=== PATIENT | female | born 1950 | race Caucasian/White ===

== ENCOUNTER 2023-07-24 13:15 | Outpatient (OUT) | payer MEDICARE, SELFPAY ==
--- NOTE | 2023-07-24 13:31 | MR_ITS ---
The [address] [address] Patient Name: LUPE NGUYEN MRN: [id number] date: 1950 Sex: F Assigned Patient Location: LAB Current Patient Location: LAB Accession/Order Number: [id number] Exam Date: 07/24/2023 13:45 Report Date: 07/25/2023 15:55 At the request of: ALFREDO CARDENAS Procedure: MR abdomen wo/w con EXAM: MR abdomen wo/w con 07/24/2023 COMPARISON STUDY: MRI of the abdomen with and without contrast 08/29/2022. CT of the abdomen and pelvis without contrast 03/24/2021. TECHNIQUE: Coronal T1 and T2, sagittal T2, axial T2, axial T1 in and out of phase, and axial as well as coronal T1 images were obtained following administration of intravenous gadolinium contrast. HISTORY: Kidney Lesion N28.9 FINDINGS: A hemorrhagic/proteinaceous exophytic cyst at the upper pole of the right kidney involves the anterolateral cortex. On image #6 of series 13 this measures 5 x 10 mm. An intracortical similar appearing lesion involving the anterior and medial cortex upper pole left kidney, image #8 of series 13 measures 9 x 10 mm. A small exophytic cyst involving the posterior cortex of the left kidney near the inferior pole measures 7 mm superior to inferior, image 11 of series 8. An intracortical cyst involving the posterior cortex upper pole right kidney measures 6 mm. Intracortical angiomyolipoma within the posterior cortex at the midpole level of the right kidney, image #9 of series 9 measures 6 mm. A midpole similar appearing lesion on the left within the posterior cortex measures 7 mm, image 11 of series 9. Bowel pattern is nonobstructive. Aorta is nonaneurysmal. No new significantly enlarged adenopathy. Right hepatic lobe measures 16 cm superior to inferior. The spleen measures 8.9 cm superior to inferior. There is a focal area of capsular retraction of the upper pole of the spleen again identified. This is seen on coronal image #17 of series 5. This is associated with subcapsular areas of decreased T1 and T2 signal intensity. There is dextrocurvature of the spine centered at the thoracolumbar junction. Chronic inferior endplate Schmorl's node formation versus compression deformity at the L1 level is noted. Spondylitic/facet arthritic changes lumbar spine are again identified as well as evidence of posterior dory and screw fixation from L4 through S1 levels. Visualized portions of the liver, pancreas, and adrenals appear unremarkable. MR/MR abdomen wo/w con IMPRESSION: 1. Prior cholecystectomy. 2. 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 3. Mild background global atrophic changes of both kidneys without hydronephrosis. 4. Combination of simple and hemorrhagic/proteinaceous cysts involving each kidney again noted and unchanged. Subcentimeter angiomyolipomas at the midpole levels of each kidney also again noted. 5. Posterior dory and screw fixation from L4 through S1 levels noted. Lumbar scoliosis with severe spondylitic/facet arthritic change is again identified. Chronic inferior endplate compression deformity versus Schmorl's node formation at the L1 level again identified. Electronically authenticated by: TAWANNA WATKINS Date: 07/25/2023 15:55
[2023-07-24 13:37] LABS: Estimated GFR (African America 41 (>=60); Estimated GFR (Non-African Ame 34 (>=60)
== END 2023-07-24 13:16 | disposition home or self-care (01) ==
LOC: LAB 13:15
PROVIDERS: PCP Internal Medicine; Visit Provider Urology
DX: N28.9 Disorder of kidney and ureter, unspecified (principal); N28.1 Cyst of kidney, acquired
CPT/HCPCS: 36415; 74183; 82565; A9575

== ENCOUNTER 2023-08-17 10:03 | Outpatient (OUT) | payer MEDICARE, SELFPAY ==
--- NOTE | 2023-08-17 11:02 | US_ITS ---
[place] [id number] Patient Name: LUPE NGUYEN MRN: [id number] date: 1950 Sex: F Assigned Patient Location: CARD Current Patient Location: CARD Accession/Order Number: [id number] Exam Date: 08/17/2023 11:10 Report Date: 08/19/2023 04:55 At the request of: SACHIN MATTHEWS Procedure: US renal doppler EXAMINATION: US renal doppler HISTORY: Atherosclerosis Of Renal Arteries COMPARISON: Ultrasound kidneys 02/22/2022 TECHNIQUE: Ultrasound examination was performed of the kidneys and bladder. FINDINGS: Right Kidney: Height: 4.0 cm Length: 7.3 cm Width: 4.4 cm Right Renal Artery Proximal: 103.6 cm/s / 18.0 cm/s Mid: 62.9 cm/s / 12.5 cm/s Distal: 49.9 cm/s / 12.4 cm/s Right Arcuate Artery Superior: 26.6 cm/s / 8.7 cm/s Middle: 25.9 / 10.9 cm/s Inferior: 32.3 / 10.9 cm/s Left Kidney: Height: 5.3 cm Length: 11.0 cm Width: 5.1 cm Left Renal Artery Proximal PSV: 138.1 cm/s Proximal EDV: 12.6 cm/s Mid PSV: 75.1 cm/s Mid EDV: 24.6 cm/s Distal PSV: 48.1 cm/s Distal EDV: 15.0 cm/s Left Arcuate Artery Superior PSV: 55.3 cm/s Superior EDV: 18.0 cm/s Middle PSV: 48.7 cm/s Middle EDV: 20.2 cm/s Inferior PSV: 68.5 cm/s Inferior EDV: 18.0 cm/s Aorta PSV: 108 cm/s Aorta EDV: 35.6 cm/s US/US renal doppler IMPRESSION: 1. Grossly stable bilateral cortical thinning and stable simple and complex cysts. 2. No hydronephrosis or appreciable stones. 3. Borderline elevated resistive index within the renal arteries and arcuate arteries and changing waveform compatible with slightly narrowed vessels and increased resistance. Electronically authenticated by: TONYA GARCIA Date: 08/19/2023 04:55
--- NOTE | 2023-08-17 11:06 | CA_ITS ---
Patient Name: LUPE NGUYEN MR#: [id number] : 1950 Exam Date: 08/17/2023 Ordering Doctor: DR SACHIN AGUILERA M.D. ECHOCARDIOGRAM REPORT PROCEDURE: CA ECHO DOPPLER COMPLETE INDICATIONS: Hypertension, aortic insufficiency, CABGx3, heart stents, myocardial infarction COMPARISON: None. DESCRIPTION: COMPLETE ECHOCARDIOGRAM Real-time transthoracic echocardiography with 2D, M-mode, spectral and color flow Doppler performed. QUALITY: Technical quality was good. 60 , 175# , BSA 1.76 m2 LEFT VENTRICLE: Normal chamber size. Moderate concentric left ventricular hypertrophy. Normal systolic function. LV EF: Normal left ventricular ejection fraction, (55%). DIASTOLIC: Grade I diastolic dysfunction. ATRIAL SEPTUM: Possible ASD vs PFO. LEFT ATRIUM: Moderate dilatation. RIGHT ATRIUM: Moderate dilatation. RIGHT VENTRICLE: Mild dilatation. Mildly decreased right ventricular systolic function. TRICUSPID VALVE: Normal mobility and thickness. No stenosis with mild regurgitation. Doppler studies reveal mildly (35-45) elevated right sided pressures. RVSP 36 mmHg MITRAL VALVE: Moderately thickened with normal mobility. No evidence of mitral valve stenosis. There is no mitral annular calcification. Mild mitral regurgitation. AORTIC VALVE: Normal trileaflet appearance. Mildly calcified aortic valve. Normal leaflet mobility. No evidence of aortic valve stenosis. Mild to moderate aortic regurgitation. AORTIC ROOT: Normal diameter and appearance. PULMONIC VALVE: Normal thickness and mobility. No stenosis. Trivial regurgitation. PERICARDIUM: Trivial pericardial effusion. IVC: Collapses with inspirations. PLEURA: CONCLUSION: 1. Moderate concentric left ventricular hypertrophy with normal left ventricular systolic function. Estimated LVEF is 55%. 2. The right ventricle is mildly dilated with mildly reduced systolic function. 3. Mild diastolic dysfunction. 4. Moderate biatrial dilatation. 5. Mild to moderate aortic regurgitation. 6. Mild mitral and tricuspid regurgitation. 7. Mildly elevated right-sided pressures. 8. Color-flow Doppler indicates interatrial septal communication with vexh-ye-panak shunting suggestive of possible small atrial septal defect. Adult Echocardiography Procedure Report Left Ventricle LVEDD (3.7 - 5.6 cm): 4.46 cm LVESD (2.2 - 4.0 cm): 2.92 cm LVIVS thickness (0.6 - 1.2 cm): 1.45 cm LVPW thickness (0.5 - 1.0 cm): 1.25 cm e': 0.06 m/s E - e': 12.91 LVOT Max Gradient: 2.15 mm[Hg] LVOT Area (cm2): 0.73 m/s Peak Velocity (LVOT): 0.73 m/s Mean Velocity (LVOT): 0.50 m/s LVOT Diameter 2.40 cm Left Atrium LA Volume Index (2D A2C): 53.65 ml/m2 Left Atrium Systolic Dimension: 4.90 cm Mitral Valve MV E to A Ratio: 0.72 Mitral Valve A-Wave Peak Velocity: 1.09 m/s Mitral Valve E-Wave Peak Velocity: 0.79 m/s Right Ventricle Aorta AO Root Diam: 2.91 cm Ascending Ao Diam: 2.75 cm Aortic Valve AoV Area (Peak Aakash): 2.42 cm2, 2.42 cm2 AoV Area (VTI): 2.65 cm2, 2.65 cm2 Peak Velocity(Antegrade Flow): 1.37 m/s Peak Gradient(Antegrade Flow): 7.46 mm[Hg] Mean Velocity(Antegrade Flow): 0.86 m/s Mean Gradient(Antegrade Flow): 3.49 mm[Hg] Velocity Time Integral: 33.44 cm Tricuspid Valve Peak Velocity (Regurgitant Flow): 2.60 m/s, 2.90 m/s, 2.63 m/s Pulmonic Valve Mean Gradient: 1.50 mm[Hg] Mean Velocity: 0.59 m/s Peak Velocity: 0.74 m/s, 0.80 m/s Peak Gradient: 2.20 mm[Hg], 2.55 mm[Hg] Right Atrium Right Atrium Systolic Pressure: 49.15 ml, 49.15 ml Dictated by: Sachin Aguilera M.D. on 08/18/2023 at 19:42 Approved by: Sachin Aguilera M.D. on 08/18/2023 at 19:51
== END 2023-08-17 10:04 | disposition home or self-care (01) ==
LOC: CARD 10:08
PROVIDERS: PCP Internal Medicine; Visit Provider Internal Medicine Interventional Cardiology
DX: I70.1 Atherosclerosis of renal artery (principal); I10 Essential (primary) hypertension; I35.1 Nonrheumatic aortic (valve) insufficiency
CPT/HCPCS: 76775; 93306; 93975

== ENCOUNTER 2023-09-18 20:08 | Inpatient (IN) | payer MEDICARE, SELFPAY ==
[2023-09-18 20:17] VITALS: BP 193/69; PULSE 92; RESP 18; TEMP 37.4; O2SAT 95; BMI 35.0
--- OUTSIDE RECORDS SUMMARY | 2023-09-18 20:21 | XMS_ITS | CCD ---
Author Name Unknown Address [address] [place] [address] Organization [facility] Care Team Providers Care Celebrity Manager Name Role Phone DESIRAE, SHAKA H. Unavailable Unavailable JACK VOGT Unavailable Unavailable DESIRAE, SHAKA H. Unavailable Unavailable DESIRAE, SHAKA H. Unavailable Unavailable JACK VOGT Unavailable Unavailable DESIRAE, SHAKA H. Unavailable Unavailable DESIRAE, SHAKA H. Unavailable Unavailable JACK VOGT Unavailable Unavailable THOMAS Vogt Primary Care Provider THOMAS Vogt Referring Provider Self, Referral Attending Provider Unavailable JACK VOGT Primary Care Physician JOHN EPPERSON Attending Unavailable JOHN EPPERSON Admitting Unavailable JOHN EPPERSON Consulting Unavailable DR JACK VOGT Primary Care Unavailable JOHN EPPERSON Attending Unavailable JOHN EPPERSON Admitting Unavailable DR JACK VOGT Primary Care Unavailable DR HENRY PARKER V Consulting Unavailable JOHN EPPERSON Consulting Unavailable JOHN EPPERSON Attending Unavailable JOHN EPPERSON Admitting Unavailable JOHN EPPERSON Consulting Unavailable DR JACK VOGT Primary Care Unavailable JOHN EPPERSON Attending Unavailable JOHN EPPERSON Admitting Unavailable JOHN EPPERSON Consulting Unavailable DR JACK VOGT Primary Care Unavailable SARAY MONCADA Attending Unavailable SARAY MONCADA Admitting Unavailable DR JACK VOGT Primary Care Unavailable DR TONYA GARCIA Consulting Unavailable SARAY MONCADA Consulting Unavailable ALFREDO COELHO Consulting Unavailable DR JACK VOGT Primary Care Unavailable ALFREDO COELHO Attending Unavailable ALFREDO COELHO Admitting Unavailable RYLAN HOPKINS Consulting Unavailable ISABEL DODGE Attending Unavailable KRISHAN DODGEISSA Admitting Unavailable DR JACK VOGT Primary Care Unavailable ZIEBER, DR TONYA Moya Consulting Unavailable DAR, ISABEL Consulting Unavailable COELHO, ALFREDO Consulting Unavailable VOGT, DR DOSS Primary Care Unavailable COELHO, ALFREDO Attending Unavailable COELHO, ALFREDO Admitting Unavailable WEST, DR HENRY Mosley Consulting Unavailable DAR, ISABEL Attending Unavailable DAR, ISABEL Admitting Unavailable DAR, ISABEL Consulting Unavailable FRANCHESCA, DR DOSS Primary Care Unavailable ZHOU, JOHN Attending Unavailable ZHOU, JOHN Admitting Unavailable VOGT, DR DOSS Primary Care Unavailable ZIEBJESSICA, DR TONYA Moya Consulting Unavailable ZHOU, JOHN Consulting Unavailable NEFCY, JERRICA Consulting Unavailable Self, Referral Attending Unavailable Self, Referral Admitting Unavailable Jack Vogt Referring Unavailable Jack Vogt Primary Care Unavailable DAR, ISABEL Attending Unavailable MOUKARBELSACHIN Attending Unavailable COELHO, Alfredo R Attending Unavailable COELHO, Alfredo R Attending Unavailable COELHO, Alfredo R Attending Unavailable Allergies Allergy Classification Reported Allergen(s) Allergy Type Date of Onset Reaction(s) Facility (7 sources) Iodine; Translations: [Iodine] Drug Allergy 0 Eruption of skin (disorder) [facility] (2 sources) Pneumococcal vaccine; Translations: [pneumococcal vaccine] Drug Allergy 1 Edema [facility] (3 sources) varenicline; Translations: [varenicline] Drug Allergy 1 Vomiting [facility] (2 sources) Oktbmko-ENE-FyW Reductase Inhibitor; Translations: [Ivfdrqv-KIH-RtL Reductase Inhibitor] Allergy to substance 1 Unknown Reaction [facility] (3 sources) HMG-CoA reductase inhibitor; Translations: [statins] Drug allergy Unknown (qualifier value) [facility] (3 sources) Shellfish; Translations: [shellfish] Drug allergy Unknown (qualifier value) [facility] (2 sources) black walnut pollen extract; Translations: [HJCJHOA-WXH-KAL REDUCTASE INHIBITORS] Drug Allergy 0 [facility] (1 source) varenicline Drug Allergy 0 [facility] (1 source) Pneumovax 23 Drug allergy (disorder) 0 [facility] (1 source) Contrast media; Translations: [RED DYE] Propensity to adverse reactions to drug (disorder) 2 [facility] (1 source) nickel; Translations: [NICKEL] Drug Allergy 8 [facility] (1 source) Pneumococcal vaccine; Translations: [PNEUMOCOCCAL 23-CRUZ PS VACCINE] Drug Allergy 1 [facility] (1 source) Shellfish; Translations: [SHELLFISH DERIVED] Propensity to adverse reactions to drug (disorder) 8 [facility] Medications Current Medications Medication Drug Class(es) Dates Sig (Normalized) Sig (Original) acetaminophen 325 mg / HYDROcodone bitartrate 5 mg oral tablet (2 sources) Opioid Agonist Start: 09-26-2022 acetaminophen-hydr ocodone 325 mg-5 mg oral tablet Refill(s) 0 Start Date: 09/26/22 Status: Ordered Start: 03-24-2021 End: 03-27-2021 take 1 tablet by mouth every six hours Hydrocodone-Acetaminophen Discontinued 1 TAB PO Q6H March 24, 2021 10:33pm March 27, 2021 11:36am alendronic acid 70 mg oral tablet (1 source) Bisphosphonate Start: 09-26-2022 alendronate 70 mg Tab Refills(s) 0 Start Date: 09/26/22 Status: Ordered apixaban 2.5 mg oral tablet (3 sources) Factor Xa Inhibitor Start: 03-04-2022 Eliquis 2. 5 mg oral tablet Refills(s) 0 Start Date: 03/04/22 Status: Ordered Start: 03-24-2021 take 1 tablet by gloria th twice daily Apixaban (Eliquis) 5 mg tablet Active 5 MG PO Twice daily March 24, 2021 10:33pm aspirin 81 mg delayed release oral tablet (3 sources) Platelet Aggregation Inhibitor, Nonsteroidal Anti-inflammatory Drug Start: 03-04-2022 take 1 mg by mouth once daily aspirin 81 mg Oral EC Tab mg tab(s), Oral, Daily, Refills(s) 0 Start Date: 03/04/22 Status: Ordered Start: 03-24-2021 take 81 mg by mouth once daily Aspirin Active 81 MG PO Daily March 24, 2021 10:38pm DULoxetine 30 mg delayed release oral capsule (3 sources) Serotonin and Norepinephrine Reuptake Inhibitor Start: 03-04-2022 DULoxetine 30 mg Cap-EC Refills(s) 0 Start Date: 03/04/22 Status: Ordered Start: 03-04-2022 DULoxetine 60 mg Cap-EC Refills(s) 0 Start Date: 03/04/22 Status: Ordered Start: 03-24-2021 take 90 mg by mouth at bedtime Duloxetine Active 90 MG PO Bedtime March 24, 2021 10:33pm DULoxetine 30 mg Cap-EC (1 source) Start: 03-04-2022 DULoxetine 30 mg Cap-EC Refills(s) 0 Start Date: 03/04/22 Status: Ordered DULoxetine 60 mg Cap-EC (1 source) Start: 03-04-2022 DULoxetine 60 mg Cap-EC Refills(s) 0 Start Date: 03/04/22 Status: Ordered ezetimibe 10 mg oral tablet (3 sources) Dietary Cholesterol Absorption Inhibitor Start: 03-04-2022 ezetimibe 10 mg Tab Refills(s) 0 Start Date: 03/04/22 Status: Ordered Start: 03-24-2021 take 10 mg by mouth once daily Ezetimibe Active 10 MG PO Daily March 24, 2021 10:33pm fenofibrate 145 mg oral tablet (1 source) Peroxisome Proliferator Receptor alpha Agonist Start: 03-24-2021 take 145 mg by mouth once daily Fenofibrate Nanocrystallized Active 145 MG PO Daily March 24, 2021 10:38pm furosemide 40 mg oral tablet (3 sources) Loop Diuretic Start: 03-04-2022 furosemide 40 mg Tab Refills(s) 0 Start Date: 03/04/22 Status: Ordered Start: 03-24-2021 take 40 mg by mouth once daily Furosemide Active 40 MG PO Daily March 24, 2021 10:33pm 12 hr guaiFENesin 600 mg extended release oral tablet (1 source) Start: 03-27-2021 take 2 tablets by mouth twice daily, then take 1 tablet by mouth every twelve hours Guaifenesin (Mucinex) 600 mg Tablet Extended Release 12hr Active 1200 MG PO Twice daily 0 March 27, 2021 11:32am hydrALAZINE hydrochloride 25 mg oral tablet (2 sources) Arteriolar Vasodilator Start: 03-04-2022 hydrALAZINE 25 mg Tab Refills(s) 0 Start Date: 03/04/22 Status: Ordered 24 hr isosorbide mononitrate 60 mg extended release oral tablet (5 sources) Nitrate Vasodilator Start: 03-04-2022 isosorbide mononitrate 60 mg ER Tab Refills(s) 0 Start Date: 03/04/22 Status: Ordered Start: 03-24-2021 take 60 mg by mouth once daily Isosorbide Mononitrate Active 60 MG PO Daily March 24, 2021 10:33pm Metoprolol (3 sources) beta-Adrenergic Genoveva Start: 03-04-2022 Metopr olol tartrate 50 mg Tab Refills(s) 0 Start Date: 03/04/22 Status: Ordered Start: 03-24-2021 take 50 mg by mouth twice piedad y Metoprolol Tartrate Active 50 MG PO Twice daily March 24, 2021 10:33pm 24 hr NIFEdipine 90 mg extended release oral tablet (3 sources) Dihydropyridine Calcium Channel Genoveva Start: 03-04-2022 NIFEdipine (Eqv-Procardia XL) 90 mg oral tablet, extended release Refills(s) 0 Start Date: 03/04/22 Status: Ordered Start: 03-24-2021 take 90 mg by mouth once daily Nifedipine Active 90 MG PO Daily March 24, 2021 10:33pm nitroglycerin 0.4 mg/actuat mucosal spray (2 sources) Nitrate Vasodilator Start: 03-04-2022 nitroglyce rin 0.4 mg SubL [place] mg spray(s), SubLingual, q5min, Refills(s) 0 Start Date: 03/04/22 Status: Ordered pantoprazole 40 mg delayed release oral tablet (3 sources) Proton Pump Inhibitor Start: 03-04-2022 Pantoprazole 40 mg D R Tab Refills(s) 0 Start Date: 03/04/22 Status: Ordered Start: 03-24-2021 take 40 mg by mouth once daily Pantoprazole Active 40 MG PO Daily March 24, 2021 10:33pm pregabalin 75 mg oral capsul e (3 sources) Start: 03-04-2022 pregabalin 75 mg Cap Refills(s) 0 Start Date: 03/04/22 Status: Ordered Start: 03-24-2021 take 75 mg by mouth twice piedad y Pregabalin Active 75 MG PO Twice daily March 24, 2021 10:33pm tiZANidine 4 mg oral tablet (2 sources) Central alpha-2 Adrenergic Agonist Start: 03-04-2022 tiZANidine 4 mg Tab Refills(s) 0 Start Date: 03/04/22 Status: Ordered valsartan 320 mg oral tablet (3 sources) Angiotensin 2 Receptor Genoveva Start: 03-04-2022 valsartan 320 mg Tab Refills(s) 0 Start Date: 03/04/22 Status: Ordered Start: 03-24-2021 take 320 mg by mouth once piedad y Valsartan Active 320 MG PO Daily March 24, 2021 10:33pm zolpidem tartrate 10 mg oral tablet (3 sources) gamma-Aminobutyric Acid-ergic Agonist Start: 03-04-2022 zolpidem 10 mg oral tablet Refills(s) 0 Start Date: 03/04/22 Status: Ordered Start: 03-24-2021 take 10 mg by mouth at bedtime Zolpidem Active 10 MG PO Bedtime March 24, 2021 10:33pm Completed/Discontinued Medications Medication Drug Class(es) Dates Sig (Normalized) Sig (Original) ondansetron 4 mg oral film (1 source) Serotonin-3 Receptor Antagonist Start: 03-24-2021 End: 03-27-2021 take 4 mg by mouth every eight hours Ondansetron Discontinued 4 MG PO Q8H March 24, 2021 10:38pm March 27, 2021 11:37am Problems Active Problems Problem Classification Problem Date Documented Da te Episodic/Chronic Acute and unspecified renal failure (1 source) Injury of kidney; Translations: [Acute kidney failure, unspecified] 03-27-2021 Episodic Acute myocardial infarction (2 sources) Myocardial infarction 06-28-2021 Chronic Chronic kidney disease (2 sources) Chronic kidney disease, stage 4 (severe); Translations: [Chronic kidney disease, stage 4 (severe)] Onset: 3 Chronic Complication of device; implant or graft (3 sources) Atherosclerosis of coronary artery bypass graft(s) without angina pectoris; Translations: [ATS CA BP GRAFT NO ANGINA PECTORIS] Onset: 2 Chronic Coronary atherosclerosis and other heart disease (7 sources) 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; Translations: [ASHD [place] CA W/O ANGINA PECTORIS] Onset: 2 Chronic Coronary atherosclerosis and other heart disease (4 sources) Presence of aortocoronary bypass graft; Translations: [Presence of coronary angioplasty implant and graft] Onset: 3 Episodic Deficiency and other anemia (1 source) Anemia; Translations: [Anemia, unspecified] 03-24-2021 Episodic Disorders of lipid metabolism (5 sources) Hyperlipidemia; Translations: [Mixed hyperlipidemia] Onset: 2 06-28-2021 Chronic Essential hypertension (9 sources) Hypertensive disorder; Translations: [Essential (primary) hypertension] Onset: 2 06-28-2021 Chronic Gastrointestinal hemorrhage (1 source) Lower gastrointestinal hemorrhage; Translations: [Gastrointestinal hemorrhage, unspecified] 03-24-2021 Episodic Heart valve disorders (3 sources) Nonrheumatic aortic (valve) insufficiency; Translations: [NONRHEUMATIC AORTIC INSUFFICIENCY] Onset: 2 Chronic Menopausal disorders (4 sources) Other primary ovarian failure; Translations: [OTHER PRIMARY OVARIAN FAILURE] Onset: 2 Chronic Occlusion or stenosis of precerebral arteries (3 sources) Occlusion and stenosis of bilateral carotid arteries; Translations: [OCCLUSION AND STENOS TEJ CAROTID ART] Onset: 3 Chronic Osteoporosis (2 sources) Osteoporosis; Translations: [Age-related osteoporosis without current pathological fracture] Onset: 2 09-26-2022 Chronic Other acquired deformities (2 sources) Spondylolisthesis, lumbar region; Translations: [Spondylolisthesis, lumbar region] Onset: 8 Episodic Other acquired deformities (1 source) Spondylolisthesis, lumbosacral region; Translations: [Spondylolisthesis, lumbosacral region] Onset: 8 Episodic Other aftercare (1 source) Long-term current use of anticoagulant; Translations: [half-way (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] Onset: 3 Episodic Other and ill-defined heart disease (2 sources) Heart disease 06-28-2021 Chronic Other diseases of kidney and ureters (2 sources) Disorder of kidney and/or ureter; Translations: [Disorder of kidney and ureter, unspecified] Onset: 2 Episodic Other diseases of kidney and ureters (2 sources) Kidney lesion 06-28-2021 Episodic Peripheral and visceral atherosclerosis (2 sources) Atherosclerosis of renal artery; Translations: [Atherosclerosis of renal artery] Onset: 3 Chronic Phlebitis; thrombophlebitis and thromboembolism (2 sources) Personal history of other venous thrombosis and embolism; Translations: [Personal history of other venous thrombosis and embolism] Onset: 3 Episodic Spondylosis; intervertebral disc disorders; other back problems (2 sources) Spondylosis; intervertebral disc disorders; other back problems; Translations: [L5-S1 RADICULOPATHY, SPONDYLOSIS] Onset: 8 Unclassified (1 source) 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 09-26-2022 Unclassified (1 source) Encounter for screening mammogram for malignant neoplasm of breast; Translations: [Encounter for screening mammogram for malignant neoplasm of breast] Onset: 3 Past or Other Problems Problem Classification Problem Date Documented Da te Episodic/Chronic Other aftercare (1 source) half-way (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; Translations: [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 DAMAGE CLERK 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 USE ANTICOAGULANTS] Onset: 02-10-2022 Episodic Other connective tissue disease (3 sources) Pain in leg, unspecified; Translations: [PAIN IN LEG UNSPECIFIED] Onset: 02-16-2022 Episodic Other connective tissue disease (1 source) Pain in left leg; Translations: [PAIN IN LEFT LEG] Onset: 02-25-2022 Episodic Other connective tissue disease (1 source) Pain in right leg; Translations: [PAIN IN RIGHT LEG] Onset: 02-25-2022 Episodic Other diseases of kidney and ureters (4 sources) Disorder of kidney and ureter, unspecified; Translations: [DISORDER KIDNEY AND URETER UNS] Onset: 08-29-2022 Episodic Other lower respiratory disease (5 sources) Shortness of breath; Translations: [SHORTNESS OF BREATH] Onset: 01-31-2022 Episodic Pulmonary heart disease (1 source) Personal history of pulmonary embolism; Translations: [PERSONAL HISTORY PULMONARY EMBOLISM] Onset: 02-10-2022 Episodic Residual codes; unclassified (1 source) Localized edema; Translations: [LOCALIZED EDEMA] Onset: 02-03-2022 Episodic Results Test Name Value Interpretation Reference Range Facility [facility] 07-28-2023 Lab Reports [id number] Normal [facility] RAD - MRI Reporton RAD - MRI Report [id number] Normal [facility] Reminderson 07-25-2023 Reminders - From: Pati Akins To: EU - Recalls Coelho; Sent: 09/26/2022 13:52:32 EST Show up: 05/29/2023 13:52:00 EDT Subject: Ct scan with Due Date/Time: 07/03/2023 13:52:00 EDT Reminder/Recall Pt needs scheduled for Ct scan with contrast, BUN/creatinine prior to 07/24/23 appt. PT uses [facility] From: Tsering Dean MA (EU - Recalls Coelho) To: EU - Recalls Coelho; Sent: 06/27/2023 11:43:21 EDT Show up: 07/04/2023 11:42:00 EDT Subject: RE: Ct scan with Due Date/Time: 07/11/2023 11:43:[address] order, last encounter & demographics faxed to [facility]. Will call and check on status in 1wk. Pt has f/u to review 07/24/23 Allergic to contrast dye. MRI ordered in replacement. Follow up rescheduled to September. Normal [facility] Office Visiton 07-21-2023 Follow-up visit [id number] Lauren Nguyen 1950 F Date Provider Department Center 07/21/2023 Connor-SACHIN MATTHEWS [place] [facility] Family History Problem Relation Age of Onset Coronary artery disease Mother Stroke Mother Coronary artery disease Father Ovarian cancer Sister Family Status - Relation Status Age at Mother Father Sister Level of Service:87061 MD OFFICE/OUTPATIENT ESTABLISHED MOD MDM 30-39 MIN Normal [facility] Lab Reportson 05-29-2023 Lab Reports [id number] Normal [facility] Documentationon 02-23-2023 Documentation [id number] Lauren Nguyen 1950 F Date Provider Department Center 02/23/2023 ISABEL CHAUDHRY CARD [place] . Family History Problem Relation Age of Onset Coronary artery disease Mother Stroke Mother Coronary artery disease Father Ovarian cancer Sister Family Status - Relation Status Age at Mother Father Sister Reason for Visit and Comments: pre op cardiac evaluation [Other] Normal [facility] MM screening mammo BI w/CADo n 02-03-2023 MM screening mammo BI w/CAD [facility] [place] [address] [place] [address] Mammography Report Signed Patient: Marleni Nguyen MR#: [id number] : 1950 Acct:[id number] Age/Sex: 72 / F ADM Date: 02/03/23 Loc: [place] Room: Type: [facility] Attending Dr: Referral Self Copies to: Jack Vogt II, MD SELF,REFERRAL Ordering Provider: SELF,REFERRAL Date of Service: 02/03/23 MM/MM screening mammo BI w/CAD: SCREENING CLINICAL DATA: Screening for malignancy. SCREENING MAMMOGRAM - FULL FIELD DIGITAL WITH TOMOSYNTHESIS AND CAD COMPARISON:Mammograms dating back to 2019 Tomosynthesis craniocaudal and mediolateral oblique views of both breasts were obtained using low- dose digital technique. This examination was reviewed with the aid of CAD. The breast tissue is composed of scattered fibroglandular densities. There are no dominant masses, typically malignant calcifications or architectural distortion. There has been no significant interval change. MM/MM screening mammo BI w/CAD IMPRESSION: NO MAMMOGRAPHIC EVIDENCE OF MALIGNANCY. ROUTINE FOLLOW-UP IS RECOMMENDED IN ONE YEAR. RESULT CODE: 1 Negative DENSITY CODE: 2 (approximately 25-50% glandular) FOLLOW UP: 1YR The false-negative rate of mammography is approximately 10-percent. Management of a palpable abnormality must be based on clinical grounds. Patient was entered into a reminder system with a target due date for the next mammogram. Impression dictated by: Andrew Moe Jr., D.O.02/03/2023 2:42 PM Dictation Location: [facility] Transcribed By: [facility] 02/03/231441 Dictated By: Andrew Moe Jr, DO 02/03/231440 Signed By: 02/03/231441 [facility] CBC AUTO DIFFon 01-18-2023 BASO # 0.1 103/ul Normal 0.0-0.1 [facility] Comment on above: Performed By: #### C BC #### [facility] [address] [address] [address] Aryan Petty Basophils/100 WBC (Bld) 1.4 % Normal 0.2-2.0 [facility] Comment on above: Performed By: #### C BC #### [facility] [address] [address] [address] Aryan Petty EO # 0.6 103/ul Normal 0.0-0.7 [facility] Comment on above: Performed By: #### C BC #### [facility] [address] [address] [address] Aryan Petty Eosinophils/100 WBC (Bld) 7.7 % Critically high 0.9-7.0 [facility] Comment on above: Performed By: #### C BC #### [facility] [address] [address] [address] Aryan Petty Erythrocyte distribution width (RBC) [Ratio] 16.4 % Critically high 11.0-15.0 [facility] Comment on above: Performed By: #### C BC #### [facility] [address] [address] [address] Aryan Petty Hematocrit (Bld) [Volume fraction] 40.6 % Normal 36.0-48.0 [facility] Comment on above: Performed By: #### C BC #### [facility] [address] [address] [address] Aryan Petty Hemoglobin (Bld) [Mass/Vol] 12.9 g/dL Normal 12.0-16.0 [facility] Comment on above: Performed By: #### C BC #### [facility] [address] [address] [address] Aryan Petty IG # 0.03 10e3/ul Normal 0.00-0.03 [facility] Comment on above: Performed By: #### C BC #### [facility] [address] [address] [address] Aryan Petty IG % 0.4 % Normal 0.0-0.5 [facility] Comment on above: Performed By: #### C BC #### [facility] [address] [place] [address] Dr. Aryan Petty LYMPH # 2.6 103/ul Normal 1.2-3.8 [facility] Comment on above: Performed By: #### C BC #### [facility] [address] [place] [address] Dr. Aryan Petty Lymphocytes/100 WBC (Bld) 35.5 % Normal 20.5-60.0 [facility] Comment on above: Performed By: #### C BC #### [facility] [address] [place] [address] Dr. Aryan Petty MANUAL DIFF REQ NO Normal [facility] Comment on above: Performed By: #### C BC #### [facility] [address] [place] [address] Dr. Aryan Petty MCH (RBC) [Entitic mass] 26.5 pg Critically low 26.7-34.0 [facility] Comment on above: Performed By: #### C BC #### [facility] [address] [place] [address] Dr. Aryan Petty MCHC (RBC) [Mass/Vol] 31.8 g/dL Normal 29.9-35.2 [facility] Comment on above: Performed By: #### C BC #### [facility] [address] [place] [address] Dr. Aryan Petty MCV (RBC) [Entitic vol] 83.5 fL Normal 81.0-99.0 [facility] Comment on above: Performed By: #### C BC #### [facility] [address] [place] [address] Dr. Aryan Petty MONO # 0.7 103/ul Normal 0.3-0.8 [facility] Comment on above: Performed By: #### C BC #### [facility] [address] [place] [address] Dr. Aryan Petty Monocytes/100 WBC (Bld) 9.9 % Normal 1.7-12.0 [facility] Comment on above: Performed By: #### C BC #### [facility] [address] [place] [address] Dr. Aryan Petty NEUT # 3.3 103/ul Normal 1.4-6.5 [facility] Comment on above: Performed By: #### C BC #### [facility] [address] [place] [address] Dr. Aryan Petty Neutrophils/100 WBC (Bld) 45.1 % Normal 43.0-75.0 [facility] Comment on above: Performed By: #### C BC #### [facility] [address] [place] [address] Dr. Aryan Petty Platelet mean volume (Bld) [Entitic vol] 11.0 fL Normal 9.5-13.5 [facility] Comment on above: Performed By: #### C BC #### [facility] [address] [place] [address] Dr. Aryan Petty PLT 270 103/ul Normal 150-450 [facility] Comment on above: Performed By: #### C BC #### [facility] [address] [place] [address] Dr. Aryan Petty RBC 4.86 106/ul Normal 4.20-5.40 [facility] Comment on above: Performed By: #### C BC #### [facility] [address] [place] [address] Dr. Aryan Petty WBC 7.4 103/ul Normal 4.0-11.0 [facility] Comment on above: Performed By: #### C BC #### [facility] [address] [place] [address] Dr. Aryan Petty LIPID PROFILEon 01-18-2023 CHOL-HDL RATIO NORM SEE BELOW Normal [facility] Comment on above: Result Comment: 3.3 - 4.4 LOW RISK 4.4 - 7.1 AVERAGE RISK 7.1 - 11.0 MODERATE RISK >11.0 HIGH RISK Performed By: #### C MP, LIPID #### [facility] [address] [address] [address] Aryan Petty Cholesterol [Mass/Vol] 189 mg/dL Normal <=200 [facility] Comment on above: Performed By: #### C MP, LIPID #### [facility] [address] [address] [address] Aryan Petty Cholesterol in HDL [Mass/Vol] 30 mg/dL Critically low 40-60 [facility] Comment on above: Performed By: #### C MP, LIPID #### [facility] [address] [address] [address] Aryan Petty Cholesterol in LDL [Mass/Vol] 101.6 mg/dL Normal [facility] Comment on above: Performed By: #### C MP, LIPID #### [facility] [address] [address] [address] Aryan Petty Cholesterol.total/ Cholesterol in HDL [Mass ratio] 6.3 {ratio} Normal [facility] Comment on above: Performed By: #### C MP, LIPID #### [facility] [address] [address] [address] Aryan Petty HDL NORMAL > or = 60 mg/dl - LO W CARDIOVASCULAR RISK <40 mg/dl - HIGH CARDIOVASCULAR RISK Normal [facility] Comment on above: Performed By: #### C MP, LIPID #### [facility] [address] [address] [address] Aryan Petty LDL CALC NORMAL SEE BELOW Normal [facility] Comment on above: Result Comment: <100 mg/dl OPTIMAL 100 - 129 mg/dl NEAR OR ABOVE OPTIMAL 130 - 159 mg/dl BORDERLINE HIGH 160 - 189 mg/dl HIGH >190 mg/dl VERY HIGH Performed By: #### C MP, LIPID #### [facility] [address] [address] [address] Aryan Petty Triglyceride [Mass/Vol] 287 mg/dL Critically high <=150 [facility] Comment on above: Performed By: #### C MP, LIPID #### [facility] [address] [place] [address] Dr. Aryan Petty VLDL CALC 57.4 mg/dL Normal [facility] Comment on above: Performed By: #### C MP, LIPID #### [facility] [address] [place] [address] Dr. Aryan Petty PROF 14(COMP METB)on 023 Albumin [Mass/Vol] 3.6 g/dL Normal 3.4-5.0 [facility] Comment on above: Performed By: #### C MP, LIPID #### [facility] [address] [place] [address] Dr. Aryan Petty Albumin/Globulin [Mass ratio] 0.8 {ratio} Normal [facility] Comment on above: Performed By: #### C MP, LIPID #### [facility] [address] [place] [address] Dr. Aryan Petty ALP [Catalytic activity/Vol] 86 U/L Normal 46-116 [facility] Comment on above: Performed By: #### C MP, LIPID #### [facility] [address] [place] [address] Dr. Aryan Petty ALT [Catalytic activity/Vol] 21 U/L Normal 14-59 [facility] Comment on above: Performed By: #### C MP, LIPID #### [facility] [address] [place] [address] Dr. Aryan Petty Anion gap [Moles/Vol] 13.1 mmol/L Normal [facility] Comment on above: Performed By: #### C MP, LIPID #### [facility] [address] [place] [address] Dr. Aryan Petty AST [Catalytic activity/Vol] 27 U/L Normal 15-37 [facility] Comment on above: Performed By: #### C MP, LIPID #### [facility] [address] [place] [address] Dr. Aryan Petty Bilirubin [Mass/Vol] 0.4 mg/dL Normal 0.2-1.0 [facility] Comment on above: Performed By: #### C MP, LIPID #### [facility] [address] [place] [address] Dr. Aryan Petty Calcium [Mass/Vol] 9.4 mg/dL Normal 8.5-10.1 [facility] Comment on above: Performed By: #### C MP, LIPID #### [facility] [address] [place] [address] Dr. Aryan Petty Chloride [Moles/Vol] 103 mmol/L Normal 98-107 [facility] Comment on above: Performed By: #### C MP, LIPID #### [facility] [address] [place] [address] Dr. Aryan Petty CO2 [Moles/Vol] 27.6 mmol/L Normal 21.0-32.0 [facility] Comment on above: Performed By: #### C MP, LIPID #### [facility] [address] [place] [address] Dr. Aryan Petty Creatinine [Mass/Vol] 2.21 mg/dL Critically high 0.55-1.02 [facility] Comment on above: Performed By: #### C MP, LIPID #### [facility] [address] [place] [address] Dr. Aryan Petty EGFR-AF [facility] LUCIAN 26 mL/min/1.73m2 Critically low >=60 [facility] Comment on above: Performed By: #### C MP, LIPID #### [facility] [address] [place] [address] Dr. Aryan Petty EGFR-NON AF [facility] LUCIAN 22 mL/min/1.73m2 Critically low >=60 [facility] Comment on above: Performed By: #### C MP, LIPID #### [facility] [address] [place] [address] Dr. Aryan Petty Globulin (S) [Mass/Vol] 4.6 g/dL Normal [facility] Comment on above: Performed By: #### C MP, LIPID #### [facility] [address] [place] [address] Dr. Aryan Petty Glucose [Mass/Vol] 120 mg/dL Critically high 74-106 T [facility] Comment on above: Performed By: #### C MP, LIPID #### [facility] [address] [address] [address] Aryan Petty Potassium [Moles/Vol] 4.0 mmol/L Normal 3.5-5.1 [facility] Comment on above: Performed By: #### C MP, LIPID #### [facility] [address] [address] [address] Aryan Petty Protein [Mass/Vol] 8.2 g/dL Normal 6.4-8.2 [facility] Comment on above: Performed By: #### C MP, LIPID #### [facility] [address] [place] [address] Dr. Aryan Petty Sodium [Moles/Vol] 140 mmol/L Normal 136-145 [facility] Comment on above: Performed By: #### C MP, LIPID #### [facility] [address] [place] [address] Dr. Aryan Petty Urea nitrogen [Mass/Vol] 29.0 mg/dL Critically high 7.0-18.0 [facility] Comment on above: Performed By: #### C MP, LIPID #### [facility] [address] [place] [address] Dr. Aryan Petty Urea nitrogen/Creatinin e [Mass ratio] 13.1 mg/mg Normal [facility] Comment on above: Performed By: #### C MP, LIPID #### [facility] [address] [place] [address] Dr. Aryan Petty US CAROTID ART BILon 25-2 023 US CAROTID ART TEJ EXAMINATION: US MELÉNDEZ TID ART TEJ HISTORY: Bilateral carotid artery occlusion COMPARISON: Ultrasound carotid artery bilateral 02/04/2022 TECHNIQUE: Duplex Doppler ultrasound analysis of carotid and vertebral arteries. . Bilateral carotid arterial duplex examination was performed using B-mode, color flow and spectral analysis. Carotid stenosis is reported according to validated velocity parameters, similar to NASCET criteria. FINDINGS: RIGHT CAROTID ARTERY: Moderate amount of plaque within bulb and proximal ICA; 67% area reduction within the bulb. RIGHT VERTEBRAL: Antegrade flow. Subclavian: PSV: 185.6 cm/s EDV: 0.0 cm/s CCA: Prox: PSV: 120.5 cm/s EDV: 6.7 cm/s Mid: PSV: 74.0 cm/s EDV: 18.3 cm/s Distal: PSV: 76.4 cm/s EDV: 18.3 cm/s BULB: PSV: 90.3 cm/s EDV: 13.7 cm/s ICA: Prox: PSV: 62.8 cm/s EDV: 12.8 cm/s Mid: PSV: 70.9 cm/s EDV: 16.0 cm/s Distal: PSV: 75.8 cm/s EDV: 19.2 cm/s ECA: PSV: 194.8 cm/s EDV: 13.7 cm/s VERTEBRAL: PSV: 63.3 cm/s EDV: 0.0 cm/s ICA/CCA ratio: PSV: 1.2 EDV: 0.7 LEFT CAROTID ARTERY: Moderate-marked amount of plaque within bulb; 75% area reduction. LEFT VERTEBRAL: Antegrade flow. Subclavian: PSV: 219.1 cm/s EDV: 0.0 cm/s CCA: Prox: PSV: 97.3 cm/s EDV: 10.9 cm/s Mid: PSV: 78.6 cm/s EDV: 15.6 cm/s Distal: PSV: 74.7 cm/s EDV: 15.6 cm/s BULB: PSV: 153.5 cm/s EDV: 17.5 cm/s ICA: Prox: PSV: 242.1 cm/s EDV: 25.5 cm/s Mid: PSV: 161.3 cm/s EDV: 19.1 cm/s Distal: PSV: 84.6 cm/s EDV: 17.5 cm/s ECA: PSV: 238.9 cm/s EDV: 15.8 cm/s VERTEBRAL: PSV: 53.0 cm/s EDV: 15.6 cm/s ICA/CCA ratio: PSV: 3.2 EDV: 1.6 IMPRESSION: 1. Moderate-marked atherosclerotic disease, left greater than right; grossly stable. 2. 0-49% flow stenosis on right. 3. 50-69% flow stenosis on left. Spectral Doppler US Thresholds Stenosis (%) PSV (cm/sec) VICA/VCCA 0-49 <150 <2.5 50-69 150-225 2.5-4.0 >70 >225 >4.0 Electronically authenticated by: TONYA GARCIA Date: 2023-01-10 15:26 Normal [facility] Office Visiton 01-04-2023 Follow-up visit [id number] Lauren Nguyen 1950 F Date Provider Department Center 01/04/2023 Ewa-DAR, ISABEL [facility] Family History Problem Relation Age of Onset Coronary artery disease Mother Stroke Mother Coronary artery disease Father Ovarian cancer Sister Family Status - Relation Status Age at Mother Father Sister Level of Service:39695 MD OFFICE/OUTPATIENT ESTABLISHED MOD MDM 30-39 MIN Reason for Visit and Comments: Follow-up [546042] - 6 month f/u Edema [[id number]] Shortness of Breath [281375] - W/ exertion Normal [facility] Ambulatory Visit Summaryon 0 09-26-2022 Ambulatory Visit Summary MARLENI NGUYEN :1950 Visit Date:09/26/2022 Ambulatory Visit Instructions Your Diagnosis Kidney lesion 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 Tests Performed Urnls Dip Stick Auto w/o Microscopy POC 7[address]73 CT Abdomen/Pelvis w/ Contrast -- Results Pending -- Please visit your patient portal for your results or contact your primary care physician. Your Care Team Attending Physician - RONALD BEAULIEU, Alfredo Moya Primary Care Physician - FRANCHESCA BEAULIEU, JACK Boudreaux This Is Your Medications List Contact prescribing physician if questions or concerns NIFEdipine (NIFEdipine (Eqv-Procardia XL) 90 mg oral tablet, extended release) acetaminophen-hydrocodone (acetaminophen-hydrocodon e 325 mg-5 mg oral tablet) alendronate (alendronate 70 mg Tab) apixaban (Eliquis 2.5 mg oral tablet) aspirin (aspirin 81 mg Oral EC Tab) duloxetine (DULoxetine 30 mg Cap-EC) duloxetine (DULoxetine 60 mg Cap-EC) ezetimibe (ezetimibe 10 mg Tab) furosemide (furosemide 40 mg Tab) hydrALAZINE (hydrALAZINE 25 mg Tab) isosorbide mononitrate (isosorbide mononitrate 60 mg ER Tab) isosorbide mononitrate (isosorbide mononitrate 60 mg ER Tab) metoprolol (Metoprolol tartrate 50 mg Tab) nitroglycerin (nitroglycerin 0.4 mg SubL [place]) pantoprazole (Pantoprazole [address] Tab) pregabalin (pregabalin 75 mg Cap) tizanidine (tiZANidine 4 mg Tab) valsartan (valsartan 320 mg Tab) zolpidem (zolpidem 10 mg oral tablet) Procedures Performed Cholecystectomy, Colonoscopy, Tonsillectomy. Discharge Vitals Heart Rate (Peripheral) 78 Respiratory Rate 16 Blood Pressure 124/76 Height 163 cm Height 64 in Weight 78 kg Weight 171.6 lb BMI 29.36 What to do next Scheduled Follow-Up Appointments Monday 1:15 PM EST With: RONALD BEAULIEU, Alfredo Moya Where: [facility] Patient Educationon 09-26-19 23 Patient Education Obstetrics and Gynec ology Urinary Tract Infection, Adult A urinary tract infection (UTI) is an infection of any part of the urinary tract. The urinary tract includes: ? The kidneys. ? The ureters. ? The bladder. ? The urethra. These organs make, store, and get rid of pee (urine) in the body. What are the causes? This is caused by germs (bacteria) in your genital area. These germs grow and cause swelling (inflammation) of your urinary tract. What increases the risk? You are more likely to develop this condition if: ? You have a small, thin tube (catheter) to drain pee. ? You cannot control when you pee or poop (incontinence). ? You are female, and: ? You use these methods to prevent : ? A medicine that kills sperm (spermicide). ? A device that blocks sperm (diaphragm). ? You have low levels of a female hormone (estrogen). ? You are . ? You have genes that add to your risk. ? You are sexually active. ? You take antibiotic medicines. ? You have trouble peeing because of: ? A prostate that is bigger than normal, if you are male. ? A blockage in the part of your body that drains pee from the bladder (urethra). ? A kidney stone. ? A nerve condition that affects your bladder (neurogenic bladder). ? Not getting enough to drink. ? Not peeing often enough. ? You have other conditions, such as: ? Diabetes. ? A weak disease-fighting system (immune system). ? Sickle cell disease. ? Gout. ? Injury of the spine. What are the signs or symptoms? Symptoms of this condition include: ? Needing to pee right away (urgently). ? Peeing often. ? Peeing small amounts often. ? Pain or burning when peeing. ? Blood in the pee. ? Pee that smells bad or not like normal. ? Trouble peeing. ? Pee that is cloudy. ? Fluid coming from the vagina, if you are female. ? Pain in the belly or lower back. Other symptoms include: ? Throwing up (vomiting). ? No urge to eat. ? Feeling mixed up (confused). ? Being tired and grouchy (irritable). ? A fever. ? Watery poop (diarrhea). How is this treated? This condition may be treated with: ? Antibiotic medicine. ? Other medicines. ? Drinking enough water. Follow these instructions at home: Medicines ? Take pipp-ods-pqcjelq and prescription medicines only as told by your doctor. ? If you were prescribed an antibiotic medicine, take it as told by your doctor. Do not stop taking it even if you start to feel better. General instructions ? Make sure you: ? Pee until your bladder is empty. ? Do not hold pee for a long time. ? Empty your bladder after sex. ? Wipe from front to back after pooping if you are a female. Use each tissue one time when you wipe. ? Drink enough fluid to keep your pee pale yellow. ? Keep all follow-up visits as told by your doctor. This is important. Contact a doctor if: ? You do not get better after 1?2 days. ? Your symptoms go away and then come back. Get help right away if: ? You have very bad back pain. ? You have very bad pain in your lower belly. ? You have a fever. ? You are sick to your stomach (nauseous). ? You are throwing up. Summary ? A urinary tract infection (UTI) is an infection of any part of the urinary tract. ? This condition is caused by germs in your genital area. ? There are many risk factors for a UTI. These include having a small, thin tube to drain pee and not being able to control when you pee or poop. ? Treatment includes antibiotic medicines for germs. ? Drink enough fluid to keep your pee pale yellow. This information is not intended to replace advice given to you by your health care provider. Make sure you discuss any questions you have with your health care provider. Document Released: 02/20/2009 Document Revised: 08/22/2019 Document Reviewed: 03/14/2019 [employer] Patient Education ? 2019 [employer]. Tristan [facility] Urology Office/Clinic Noteon 09-26-2022 Urology Office/Clinic Note Chief Complaint 6m MRI HPI Staff 6m w/MRI Abd due to Kidney Lesion. MRI abd done 08/29/22 @ [facility]. Denies flank pain. States she still has a strong odor to urine. Attributes to not drinking enough water. History of Present Illness Tests reviewed: reviewed UA I have reviewed the previous health record information and history for this patient from Dr. Coelho. I have reviewed and verified the staff HPI to be accurate for this encounter. There have been no associated fever, chills, flank pain, or blood in the urine. Denies any urinary infections since last encounter. Review of Systems PHQ Score Initial Depression Screen Score: 0 ROS - Provider Constitutional: denies weight loss, denies hot flashes. Eyes: denies eye problems. Gastrointestinal: denies nausea, denies vomiting. Cardiovascular: denies chest pain or angina. Integumentary: no dryness Musculoskeletal: denies musculoskeletal symptoms. ENMT: denies otolaryngeal symptoms. Respiratory: no shortness of breath. Heme/Lymph: denies easy bleeding tendency, denies easy bruising tendency. Psychiatric: no confusion, no anxiety. Genitourinary: denies vaginal discharge, denies incontinence, denies dysuria, denies hematuria, denies urinary frequency, denies amenorrhea, denies menorrhagia, denies abnormal bleeding, denies pelvic pain, denies genital sores, and denies decreased libido. Physical Exam Vitals & Measurements HR: 78(Peripheral) RR: 16 BP: 124/76 HT: 64 in HT: 163 cm WT: 78 kg WT: 171.6 lb BMI: 29.36 General Appearance: alert , no acute distress, well nourished, well developed female. Genitourinary: bladder nonpalpable, no flank pain. Assessment/Plan 1. Kidney lesion (N28.9: Disorder of kidney and ureter, unspecified) MRI abdomen done 08/29/2022 showed bilateral 5mm hyperdense renal cysts and bilateral benign angiomyolipomas, measuring up to 11mm; no hydronephrosis. Pt to get CT AP w/ contrast in 10 months. UA shows trace leukocytes. All questions/concerns were discussed. Pt to call our office if she encounters any issues prior. Pt understands and acknowledges. 2. 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 Follow-up With When Contact Information RONALD BEAULIEU, Alfredo Moya, URL In 10 months [facility] [address], [place] [address]- [phone] Additional Instructions: CT AP w/ contrast Patient Education Urinary Tract Infection, Adult, [id number] I, Mayte Vogt, personally scribed for Dr. Coelho on 09/26/2022 13:45:52. . Documentation recorded by the scribeMayet, accurately reflects the services(s) I performed and decisions made by me. Authenticated by Dr. Coelho on 09/26/2022 13:53:59. Problem List/Past Medical History Ongoing 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 Kidney lesion Osteoporosis Historical Heart disease Hyperlipidemia Hypertension Infarction of heart Procedure/Surgical History Cholecystectomy, Colonoscopy, Tonsillectomy. Medications acetaminophen-hydrocodone 325 mg-5 mg oral tablet alendronate 70 mg Tab aspirin 81 mg Oral EC Tab, Oral, Daily DULoxetine 30 mg Cap-EC DULoxetine 60 mg Cap-EC Eliquis 2.5 mg oral tablet ezetimibe 10 mg Tab furosemide 40 mg Tab hydrALAZINE 25 mg Tab isosorbide mononitrate 60 mg ER Tab isosorbide mononitrate 60 mg ER Tab Metoprolol tartrate 50 mg Tab NIFEdipine (Eqv-Procardia XL) 90 mg oral tablet, extended release nitroglycerin 0.4 mg SubL [place], SubLingual, q5min Pantoprazole [address] Tab pregabalin 75 mg Cap tiZANidine 4 mg Tab valsartan 320 mg Tab zolpidem 10 mg oral tablet Allergies iodine (Rash) shellfish (Unknown) statins (Unknown) Social History Tobacco Former smoker, quit more than 30 days ago Tobacco Use:., 09/26/2022 Family History Cancer: Sister and Brother. Heart disease: Mother and Father. Hypertension: Mother, Father, Sister and Brother. Immunizations Vaccine Date Status Comments influenza virus vaccine, inactivated 07/04/2022 Recorded SARS-CoV-2 (COVID-19) [id number] 07/04/2022 Recorded influenza virus vaccine, inactivated 06/24/2021 Recorded SARS-CoV-2 (COVID-19) mRNA BNT-162b2 vax 06/24/2021 Recorded 2022-09-26: TPV70 SARS-CoV-2 (COVID-19) mRNA BNT-162b2 vax 11/17/2020 Recorded 2022-09-26: TPV70 SARS-CoV-2 (COVID-19) mRNA BNT-162b2 vax 10/27/2020 Recorded 2022-09-26: TPV70 influenza virus vaccine, inactivated 07/08/2020 Recorded Lab Results Ambulatory Point of Care Results Bilirubin Urine Dipstick: Negative (09/26/22 12:56:00) Blood Urine Dipstick: Negative (09/26/22 12:56:00) Glucose Urine Dipstick: Negative (09/26/22 12:56:00) Ketones Urine Dipstick: Trace - 5 mg/dl (09/26/22 12:56:00) Leukocytes Urine Dipstick: Trace (09/26/22 12:56:00) Nitrite Urine Dipstick: Negative (09/26/22 12:56:00) Protein Urine Dipstick: Trace (09/26/22 12:56:00) Specific Radiant Urine Di (more content not included)... Normal [facility] Comment on above: Result Comment: Elec tronically Signed By: RONALD BEAULIEU, Alfredo Villarreal\Date and Time Signed: 09/26/22 13:54 EST\.br\Electronically Co-Signed By: Mayte Vogt\.rosalind\Date and Time Co-Signed: 09/26/22 13:46 EST XR DEXA BONE DENSITYon 09-07 XR DEXA BONE DENSITY EXAMINATION: XR DEXA BONE DENSITY, 09/07/2022 3:35 PM EST HISTORY: Adult health examination COMPARISON: DEXA bone densitometry 12/22/2011 TECHNIQUE: Dual-energy X-ray absorptiometry (DEXA) bone density study performed for the axial skeleton. FINDINGS: FOREARM ANALYSIS: Average bone mineral density is 0.585 g/cm2. T-score (standard deviation relative to young adult mean): -1.8 . Not previously evaluated. HIP ANALYSIS: Lowest bone mineral density is within the left femoral trochanter, 0.5-0 g/cm2. T-score (standard deviation relative to young adult mean): -2.9 . -28.3% change since prior study. IMPRESSION: [employer] [place] Organization Classification: Osteoporosis - High Fracture Risk Electronically authenticated by: TONYA GARCIA Date: 2022-09-07 16:41 Normal [facility] RAD - MRI Reporton RAD - MRI Report [id number]:12 7 Normal [facility] Lab Reportson 09-02-2022 Lab Reports [id number]:12 7 Normal [facility] MRI ABDOMEN WO W CONon 09-01 MRI ABDOMEN WO W CON EXAM: MRI ABDOMEN WO W CON HISTORY: Kidney lesion COMPARISON: Renal ultrasound 02/22/2022. CT abdomen 03/24/2021 and 05/17/2019. TECHNIQUE: Multiplanar MRI of the abdomen without and with contrast. FINDINGS: A 5 mm benign angiomyolipoma within the posterior mid right renal cortex. A 5 mm benign angiomyolipoma within the posterior mid left renal cortex as well as additional 3 mm benign angiomyolipoma within the superomedial left renal cortex. An 11 mm nonenhancing cyst within the superomedial left renal cortex corresponds to a hyperdense renal cyst. Additional 10 mm hyperdense cyst within the anterior-superior right renal cortex. No hydronephrosis. No enlarged lymph nodes within the abdomen. The adrenal glands are unremarkable. Limited assessment of the liver and kidneys unremarkable. IMPRESSION: Bilateral hyperdense renal cysts (Bosniak type II). Bilateral benign angiomyolipomas. Electronically authenticated by: RYLAN HOPKINS Date: 2022-09-01 12:43 Normal [facility] CREATININEon 08-29-2022 Creatinine [Mass/Vol] 2.23 mg/dL Critically high 0.55-1.02 [facility] Comment on above: Performed By: #### C JUDAH ####[facility] [id number] [id number]. Aryan Petty EGFR-AF [facility] LUCIAN 26 mL/min/1.73m2 Critically low >=60 [facility] Comment on above: Performed By: #### C JUDAH ####[facility] [id number] [id number]. Aryan Petty EGFR-NON AF [facility] LUCIAN 22 mL/min/1.73m2 Critically low >=60 [facility] Comment on above: Performed By: #### C JUDAH ####[facility] [id number] [id number]. Aryan Jovanny Physician Orderon 08-08-2022 Physician Order [id number]:12 7 Normal [facility] ECHOCARDIO M/2D COMPLETEon 0 03-16-2022 ECHOCARDIO M/2D COMPLETE Patient: MARLENI NGUYEN Exam Date: 03/16/2022 : 1950 Gender:F Ordering : JOHN EPPERSON Admission #: [id number] Family : DR JACK VOGT M.D. Order #: [id number] CLICK HERE TO VIEW EXAM ECHOCARDIOGRAM REPORT PROCEDURE: CARDIO PULMONARY ECHOCARDIO M/2D COMP INDICATIONS: CAD, edema, hypertension, CABG x 3 (1998), PTCA COMPARISON: None. DESCRIPTION: COMPLETE ECHOCARDIOGRAM Real-time transthoracic echocardiography with 2D, M-mode, spectral and color flow Doppler performed. QUALITY: Technical quality was good. LEFT VENTRICLE: Normal chamber size. Mild concentric left ventricular hypertrophy. Normal left ventricular systolic function. LV EF: Normal left ventricular ejection fraction, (>55%). DIASTOLIC: Grade I diastolic dysfunction. ATRIAL SEPTUM: Color flow was noted across the interatrial septum. ASD vs PFO LEFT ATRIUM: Mild dilatation. RIGHT ATRIUM: Mild dilatation. RIGHT VENTRICLE: Mild dilatation. Mildly decreased right ventricular systolic function. TRICUSPID VALVE: Normal mobility and thickness. No stenosis with mild regurgitation. No evidence of pulmonary hypertension. RVSP 22 mmHg MITRAL VALVE: Normal mobility and thickness. No evidence of mitral valve stenosis. There is no mitral annular calcification. No mitral regurgitation. AORTIC VALVE: Normal trileaflet appearance. Mildly calcified aortic valve. Normal leaflet mobility. No evidence of aortic valve stenosis. Mild to moderate aortic regurgitation. AORTIC ROOT: Normal diameter and appearance. Ascending aorta is normal in size. PULMONIC VALVE: Not well visualized. No stenosis. Trivial regurgitation. PERICARDIUM: No evidence of pericardial effusion. IVC: Collapses with inspirations. PLEURA: CONCLUSION: 1. Mild concentric left ventricular hypertrophy. Normal left ventricular systolic function. LVEF is 55 to 60%. 2. Mildly dilated right ventricle with mildly reduced systolic function. 3. Mild to moderate aortic regurgitation. 4. Normal right-sided pressures. 5. Color Doppler flow indicates possibility of small ASD versus patent foramen ovale. If indicated it transesophageal echocardiogram can provide better assessment. Dictated by: Sachin Matthews M.D. on 03/16/2022 at 16:27 Approved by: Sachin Matthews M.D. on 03/16/2022 at 16:36 Normal [facility] BNPon 02-22-2022 Natriuretic peptide B (Bld) [Mass/Vol] 553.0 pg/mL Normal <=900.0 [facility] Comment on above: Performed By: #### B BIOLOGICAL CHEMIST, BMP ####[facility] [address] [place] [address]DrGenet Petty PROF CHEM 8 (BAS METB)on Anion gap [Moles/Vol] 14.9 mmol/L Normal [facility] Comment on above: Performed By: #### B BIOLOGICAL CHEMIST, BMP ####[facility] [address] [place] [id number] Petty Calcium [Mass/Vol] 9.1 mg/dL Normal 8.5-10.1 [facility] Comment on above: Performed By: #### B BIOLOGICAL CHEMIST, BMP ####[facility] [address] [place] [address]Dr. Aryan Petty Chloride [Moles/Vol] 102 mmol/L Normal 98-107 [facility] Comment on above: Performed By: #### B BIOLOGICAL CHEMIST, BMP ####[facility] [address] [place], [place] [address]Dr. Aryan Petty CO2 [Moles/Vol] 27.7 mmol/L Normal 21.0-32.0 [facility] Comment on above: Performed By: #### B BIOLOGICAL CHEMIST, BMP ####[facility] [address] [place], [place] [address]Dr. Aryan Petty Creatinine [Mass/Vol] 1.80 mg/dL Critically high 0.55-1.02 [facility] Comment on above: Performed By: #### B BIOLOGICAL CHEMIST, BMP ####[facility] [address] [place], [place] [address]Dr. Aryan Jovanny EGFR-AF [facility] 34 mL/min/1.73m2 Critically low >=60 [facility] Comment on above: Performed By: #### B BIOLOGICAL CHEMIST, BMP ####[facility] [address] [place], [place] [address]Dr. Aryan Petty EGFR-NON AF [facility] 28 mL/min/1.73m2 Critically low >=60 [facility] Comment on above: Performed By: #### B BIOLOGICAL CHEMIST, BMP ####[facility] [address] [place], [place] [address]Dr. Arayn Petty Glucose [Mass/Vol] 107 mg/dL Critically high 74-106 [facility] Comment on above: Performed By: #### B BIOLOGICAL CHEMIST, BMP ####[facility] [address] [place], [place] [address]Dr. Aryan Petty Potassium [Moles/Vol] 3.6 mmol/L Normal 3.5-5.1 [facility] Comment on above: Performed By: #### B BIOLOGICAL CHEMIST, BMP ####[facility] [address] [place], [place] [address]Dr. Suzannetanisha Jovanny Sodium [Moles/Vol] 141 mmol/L Normal 136-145 [facility] Comment on above: Performed By: #### B BIOLOGICAL CHEMIST, BMP ####[facility] [address] [place], [place] [address]Df. Aryan Petty Urea nitrogen [Mass/Vol] 33.0 mg/dL Critically high 7.0-18.0 [facility] Comment on above: Performed By: #### B BIOLOGICAL CHEMIST, BMP ####[facility] [address] [place], [place] [address]Os. Aryan Petty Urea nitrogen/Creatinin e [Mass ratio] 18.3 mg/mg Normal [facility] Comment on above: Performed By: #### B BIOLOGICAL CHEMIST, BMP ####[facility] [address] [place], [place] [address]Fy. Aryan Petty US KIDNEYSon 02-22-2022 US KIDNEYS EXAMINATION: US ELIZA EYBryanna HISTORY: Kidney lesion COMPARISON: 03/24/2021 TECHNIQUE: Ultrasound examination was performed of the bladder. FINDINGS: Right Kidney: Asymmetrically small, normal caliber. The cortex measures 1.1 cm. Hyperechogenic focus in the cortex measures 1.4 x 1.3 x 1.1 cm. Area of hypoechogenicity cortex measuring 0.9 x 0.7 x 0.6 cm possibly a cyst Height: 4.5 cm Length: 8.1 cm Width: 4.6 cm Left Kidney: Normal in size and contour. Hyperechogenic lesion measuring 2.3 x 1.7 x 2.0 cm, poorly visualized. The cortex measures 1.4 cm. Height: 6.2 cm Length: 11.5 cm Width: 4.9 cm Urinary bladder wall is thickened measuring 0.7 cm. Bladder volume 187 mL IMPRESSION: Bilateral renal cortical lesions, indeterminate. Consider pre and postcontrast thin section CT or MRI for further evaluation Electronically authenticated by: HENRY PARKER Date: 2022-02-22 17:17 Normal [facility] VC VENOUS REFLUX TEJ LMTon 0 02-16-2022 VC VENOUS REFLUX TEJ LMT Patient: MARLENI NGUYEN Exam Date: 02/16/2022 : 1950 Gender:F Ordering : JOHN EPPERSON Admission #: [id number] Family : Order #: [id number] CLICK HERE TO VIEW EXAM RADIOLOGY REPORT PROCEDURE: VEIN CENTER ULTRASOUND VENOUS REFLUX BILATERAL COMPARISON: None. INDICATIONS: Pain in lower limb, bilateral M79.606 TECHNIQUE: Duplex imaging of the lower extremity to assess the deep and superficial venous system for the presence of deep or superficial venous incompetence and to document the location and severity of disease. The study includes evaluation of the great saphenous vein (GSV), anterior accessory saphenous vein (AASV) and small saphenous vein (SSV). Patient scanned in reverse Trendelenburg and standing. FINDINGS: RIGHT LOWER EXTREMITY: Saphenofemoral Junction Reflux: Yes 8.3mm 1.0 sec GSV: Diam (mm) Reflux/ Time (sec) Proximal Thigh 10.5 Yes 2.2 Mid Thigh 5.4 Yes 0.4 Distal Thigh 6.1 Yes 0.2 Prox Calf 5.5 Yes 1.1 Mid Calf 4.6 No Saphenopopliteal Junction Reflux: 7.2mm Yes 1.4 SSV: Proximal Calf 9.0 Yes 2.5 Mid Calf 5.0 Yes 4.6 AASV: Proximal Thigh 8.0 Yes 3.1 Mid Thigh 4.1 Yes 0.5 Distal Thigh Thrombi: Chronic partial thrombus of SSV. Compressibility: Partial compressibility of proximal SSV. Flow: Mild deep venous reflux. Cork Cutter: Dist/med calf 3.3 mm with 0.3s reflux. Prox/medial calf 2.7 mm with 0.6s reflux. Tech Note: Thigh extension of SSV. Complex fluid collection medial pop fossa measures 5.1 x 2.6 x 1.6 cm. Incompetent varicose vein proximal/posterior/medial calf off of SSV measures 4.7 mm with 2.0s reflux. Distal/medial calf varicose vein connecting GSV and SSV measures 3.9 mm with 0.8s reflux. Distal/medial thigh varicosity measures 4.4 mm with 0.3s reflux. LEFT LOWER EXTREMITY: Saphenofemoral Junction Reflux: Yes 9.6 mm 2.2 sec GSV: Diam (mm) Reflux/Time (sec) Proximal Thigh 11.0 Yes 1.7 Mid Thigh 6.1 Yes 0.6 Distal Thigh 6.8 Yes 2.6 Prox Calf 5.1 Yes 0.4 Mid Calf 4.8 Yes 0.3 Saphenopopliteal Junction Relux: 5.9 mm Yes 1.4 SSV: Proximal Calf 7.2 Yes 0.5 Mid Calf 5.3 Yes 0.3 AASV: Proximal Thigh 7.1 Yes 0.7 Mid Thigh 5.4 Yes 0.5 Distal Thigh Thrombi: No acute or chronic thrombus. Compressibility: Normal. Flow: Mild deep venous reflux noted. Cork Cutter: Mid/medial calf 3.1mm, 2.9s. Dist/med calf 3.1mm, 2.0s. Mid/medial thigh 3.5mm, 0.5s reflux. Tech Note: Thigh extension of SSV. Proximal/medial calf varicose vein measures 4.7 mm with 0.6s reflux. Distal/medial thigh varicosity measures 4.1 mm with 1.4s reflux. Distal/anterior medial calf varicose vein measures 4.4 mm with 0.9s reflux. CONCLUSION: 1. Mild to moderate bilateral great saphenous vein venous insufficiency with associated dilatation 2. Moderate to severe right small saphenous vein venous insufficiency and dilatation 3. Moderate right anterior accessory saphenous vein venous insufficiency with dilatation 4. Borderline venous insufficiency with dilatation left small saphenous vein and left anterior accessory saphenous vein 5. Mild bilateral deep vein reflux 6. 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 . Bilateral carotid arterial duplex examination was performed using B-mode, color flow and spectral analysis. Carotid stenosis is reported according to validated velocity parameters, similar to NASCET criteria. FINDINGS: RIGHT CAROTID ARTERY: Moderate-marked atherosclerotic plaque within the bulb resulting in 74% area reduction. RIGHT VERTEBRAL: Antegrade flow. Subclavian: PSV: 146.1 cm/s EDV: 0.0 cm/s CCA: Prox: PSV: 67.2 cm/s EDV: .2 cm/s Mid: PSV: 64.6 cm/s EDV: 12.8 cm/s Distal: PSV: 54.9 cm/s EDV: 12.1 cm/s BULB: PSV: 79.9 cm/s EDV: 14.5 cm/s ICA: Prox: PSV: 53.7 cm/s EDV: 17.1 cm/s Mid: PSV: 77.3 cm/s EDV: 24.1 cm/s Distal: PSV: 73.8 cm/s EDV: 25.8 cm/s ECA: PSV: 108.2 cm/s EDV: 9.7 cm/s VERTEBRAL: PSV: 30.2 cm/s EDV: 0.0 cm/s ICA/CCA ratio: PSV: 1.2 EDV: 1.1 LEFT CAROTID ARTERY: Moderate-marked atherosclerotic plaque within the bulb resulting in 84% area reduction. LEFT VERTEBRAL: Antegrade flow. Subclavian: PSV: 192.8 cm/s EDV: 0.0 cm/s CCA: Prox: PSV: 66.9 cm/s EDV: 12.0 cm/s Mid: PSV: 69.1 cm/s EDV: 15.3 cm/s Distal: PSV: 70.2 cm/s EDV: 17.5 cm/s BULB: PSV: 105.9 cm/s EDV: 22.0 cm/s ICA: Prox: PSV: 150.0 cm/s EDV: 27.6 cm/s Mid: PSV: 119.3 cm/s EDV: 19.2 cm/s Distal: PSV: 32.4 cm/s EDV: 10.7 cm/s ECA: PSV: 178.0 cm/s EDV: 10.9 cm/s VERTEBRAL: PSV: 48.2 cm/s EDV: 16.4 cm/s ICA/CCA ratio: PSV: 2.1 EDV: 1.6 IMPRESSION: 1. Moderate-marked atherosclerotic plaque within the carotid bulbs bilaterally. 2. 50-69% flow stenosis. Electronically authenticated by: TONYA GARCIA Date: 2022-02-04 17:45 Normal [facility] US WALTER DOP LEG BILon 2 022 US WALTER DOP LEG TEJ EXAM: US WALTER DOP LEG TEJ HISTORY: Pain in lower limb . This is a 71-year-old with a history of pulmonary embolism, currently on blood thinners. COMPARISON: None. TECHNIQUE: Multiple sonographic images of the deep veins of both lower extremities were obtained, supplemented with Doppler. FINDINGS: The deep veins of both lower extremities are fairly well-visualized from the groin to the mid calf. On the right, no filling defect is identified to indicate a thrombus. There is normal compression and augmentation to flow. The greater saphenous vein is intact. On the left, no filling defect is identified in the deep veins to indicate a thrombus. There is normal compression augmentation to flow. There is chronic thrombus seen within the greater saphenous vein without obstruction. Complex cystic structures are seen posterior to each kidney. IMPRESSION: There is no direct or indirect evidence of deep vein thrombosis in either lower extremity. Chronic thrombus without occlusion is seen in the greater saphenous vein on the left. 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 Comparison with a previous study would be helpful. Electronically authenticated by: JERRICA HOLDEN Date: 2022-02-04 16:34 Normal [facility] BNPon 01-31-2022 Natriuretic peptide B (Bld) [Mass/Vol] 620.0 pg/mL Normal <=900.0 [facility] Comment on above: Performed By: #### B BIOLOGICAL CHEMIST, BMP, LIPID ####[facility] [address] [place] [id number]. Aryan Petty LIPID PROFILEon 01-31-2022 CHOL-HDL RATIO NORM SEE BELOW Normal [facility] Comment on above: Result Comment: 3.3 - 4.4 LOW RISK 4.4 - 7.1 AVERAGE RISK 7.1 - 11.0 MODERATE RISK >11.0 HIGH RISK Performed By: #### B BIOLOGICAL CHEMIST, BMP, LIPID ####[facility] [address] [place], [place] [address]Ox. Aryan Petty Cholesterol [Mass/Vol] 148 mg/dL Normal <=200 [facility] Comment on above: Performed By: #### B BIOLOGICAL CHEMIST, BMP, LIPID ####[facility] [address] [place], [place] [address]Ob. Aryan Petty Cholesterol in HDL [Mass/Vol] 25 mg/dL Critically low 40-60 [facility] Comment on above: Performed By: #### B BIOLOGICAL CHEMIST, BMP, LIPID ####[facility] [address] [place] [address]Dr. Aryan Petty Cholesterol in LDL [Mass/Vol] 80.8 mg/dL Normal [facility] Comment on above: Performed By: #### B BIOLOGICAL CHEMIST, BMP, LIPID ####[facility] [address] [place] [address]Dr. Aryan Petty Cholesterol.total/ Cholesterol in HDL [Mass ratio] 5.9 {ratio} Normal [facility] Comment on above: Performed By: #### B BIOLOGICAL CHEMIST, BMP, LIPID ####[facility] [address] [place] [address]Dr. Aryan Petty HDL NORMAL > or = 60 mg/dl - LO W CARDIOVASCULAR RISK <40 mg/dl - HIGH CARDIOVASCULAR RISK Normal [facility] Comment on above: Performed By: #### B BIOLOGICAL CHEMIST, BMP, LIPID ####[facility] [address] [place] [address]Dr. Aryan Petty LDL CALC NORMAL SEE BELOW Normal [facility] Comment on above: Result Comment: <100 mg/dl OPTIMAL 100 - 129 mg/dl NEAR OR ABOVE OPTIMAL 130 - 159 mg/dl BORDERLINE HIGH 160 - 189 mg/dl HIGH >190 mg/dl VERY HIGH Performed By: #### B BIOLOGICAL CHEMIST, BMP, LIPID ####[facility] [address] [place] [address]Dr. Aryan Petty Triglyceride [Mass/Vol] 211 mg/dL Critically high <=150 [facility] Comment on above: Performed By: #### B BIOLOGICAL CHEMIST, BMP, LIPID ####[facility] [address] [place] [address]Dr. Aryan Petty VLDL CALC 42.2 mg/dL Normal [facility] Comment on above: Performed By: #### B BIOLOGICAL CHEMIST, BMP, LIPID ####[facility] [address] [place] [address]Dr. Aryan Petty PROF CHEM 8 (BAS METB)on Anion gap [Moles/Vol] 14.7 mmol/L Normal [facility] Comment on above: Performed By: #### B BIOLOGICAL CHEMIST, BMP, LIPID ####[facility] [address] [place] [address]Dr. Aryan Petty Calcium [Mass/Vol] 8.7 mg/dL Normal 8.5-10.1 [facility] Comment on above: Performed By: #### B BIOLOGICAL CHEMIST, BMP, LIPID ####[facility] [address] [place] [address]Dr. Aryna Petty Chloride [Moles/Vol] 104 mmol/L Normal 98-107 [facility] Comment on above: Performed By: #### B BIOLOGICAL CHEMIST, BMP, LIPID ####[facility] [address] [place] [address]Dr. Aryan Petty CO2 [Moles/Vol] 26.0 mmol/L Normal 21.0-32.0 [facility] Comment on above: Performed By: #### B BIOLOGICAL CHEMIST, BMP, LIPID ####[facility] [address] [place], [place] [address]Dr. Aryan Petty Creatinine [Mass/Vol] 2.91 mg/dL Critically high 0.55-1.02 [facility] Comment on above: Performed By: #### B BIOLOGICAL CHEMIST, BMP, LIPID ####[facility] [address] [place], [place] [address]Dr. Aryan Petty EGFR-AF [facility] 19 mL/min/1.73m2 Critically low >=60 [facility] Comment on above: Performed By: #### B BIOLOGICAL CHEMIST, BMP, LIPID ####[facility] [address] [place] [address]Dr. Aryan Petty EGFR-NON AF [facility] 16 mL/min/1.73m2 Critically low >=60 [facility] Comment on above: Performed By: #### B BIOLOGICAL CHEMIST, BMP, LIPID ####[facility] [address] [place] [address]Dr. Aryan Petty Glucose [Mass/Vol] 110 mg/dL Critically high 74-106 [facility] Comment on above: Performed By: #### B BIOLOGICAL CHEMIST, BMP, LIPID ####[facility] [address] [place] [address]Dr. Aryan Petty Potassium [Moles/Vol] 3.7 mmol/L Normal 3.5-5.1 [facility] Comment on above: Performed By: #### B BIOLOGICAL CHEMIST, BMP, LIPID ####[facility] [address] [place], [place] [address]Cb. Aryan Petty Sodium [Moles/Vol] 141 mmol/L Normal 136-145 [facility] Comment on above: Performed By: #### B BIOLOGICAL CHEMIST, BMP, LIPID ####[facility] [address] [place], [place] [address]Vy. Aryan Petty Urea nitrogen [Mass/Vol] 51.0 mg/dL Critically high 7.0-18.0 [facility] Comment on above: Performed By: #### B BIOLOGICAL CHEMIST, BMP, LIPID ####[facility] [address] [place], [place] [address]Oq. Aryan Petty Urea nitrogen/Creatinin e [Mass ratio] 17.5 mg/mg Normal [facility] Comment on above: Performed By: #### B BIOLOGICAL CHEMIST, BMP, LIPID ####[facility] [address] [place], [place] [address]Qq. Aryan Petty Basic Metabolic Panel Reflex Mgon 06-07-2018 Anion gap 3 molar conc 10 mmol/L Normal 7-13 [facility] Calcium mass conc 8.2 mg/dL Low 8.6-10.2 [facility] Chloride molar conc 109 mmol/L Critically high 98-107 [facility] CO2 molar conc 25 mmol/L Normal 22-29 [facility] Creatinine mass conc 1.21 mg/dL Critically high 0.50-0.90 [facility] GFR/1.73 sq M predicted among blacks MDRD vol rate/area (S/P/Bld) 53.4 mL/min/{1.73_m2} Low >60 [facility] Comment on above: Result Comment: >60 mL/min/1.73m2 EGFR, calc. for ages 18 and older using theMDRD formula (not corrected for weight), is valid for stablerenal function. GFR/1.73 sq M.predicted MDRD vol rate/area 44.2 mL/min/{1.73_m2} Low >60 [facility] Comment on above: Result Comment: >60 mL/min/1.73m2 EGFR, calc. for ages 18 and older using theMDRD formula (not corrected for weight), is valid for stablerenal function. Glucose mass conc 111 mg/dL Critically high 74-109 [facility] Potassium reflex Mg 3.6 mEq/L Normal 3.5-5.1 [facility] Sodium molar conc 144 mmol/L Normal 132-144 [facility] Urea nitrogen mass conc 26 mg/dL Critically high 8-23 [facility] CBC With Platelet and Differ entialon 06-07-2018 Basophils Auto #/vol (Bld) 0.1 10*3/uL Normal 0.0-0.2 [facility] Basophils/100 WBC Auto (Bld) 0.7 % Normal [facility] Eosinophils Auto #/vol (Bld) 0.3 10*3/uL Normal 0.0-0.7 [facility] Eosinophils/100 WBC Auto (Bld) 3.1 % Normal [facility] Erythrocyte distribution width Auto Ratio (RBC) 13.4 % Normal 11.5-14.5 [facility] Hematocrit Auto Volume Fraction (Bld) 34.6 % Low 37.0-47.0 [facility] Hemoglobin mass conc (Bld) 12.0 g/dL Normal 12.0-16.0 [facility] Lymphocytes Auto #/vol (Bld) 2.3 10*3/uL Normal 1.0-4.8 [facility] Lymphocytes/100 WBC Auto (Bld) 24.2 % Normal [facility] MCH Auto Entitic mass (RBC) 33.0 pg Critically high 27.0-31.3 [facility] MCHC Auto mass conc (RBC) 34.6 % Normal 33.0-37.0 [facility] MCV Auto Entitic volume (RBC) 95.4 fL Normal 82.0-100.0 [facility] Monocytes Auto #/vol (Bld) 0.9 10*3/uL Critically high 0.2-0.8 [facility] Monocytes/100 WBC Auto (Bld) 9.8 % Normal [facility] Neutrophils Auto #/vol (Bld) 5.9 10*3/uL Normal 1.4-6.5 [facility] Neutrophils/100 WBC Auto (Bld) 62.2 % Normal [facility] Platelets Auto #/vol (Bld) 139 10*3/uL Normal 130-400 [facility] RBC Auto #/vol (Bld) 3.62 10*6/uL Low 4.20-5.40 [facility] WBC Auto #/vol (Bld) 9.5 10*3/uL Normal 4.8-10.8 [facility] Basic Metabolic Panelon 05-19 Anion gap 3 molar conc 11 mmol/L Normal 7-13 [facility] Calcium mass conc 8.3 mg/dL Low 8.6-10.2 [facility] Chloride molar conc 104 mmol/L Normal 98-107 [facility] CO2 molar conc 26 mmol/L Normal 22-29 [facility] Creatinine mass conc 1.90 mg/dL Critically high 0.50-0.90 [facility] GFR/1.73 sq M predicted among blacks MDRD vol rate/area (S/P/Bld) 31.8 mL/min/{1.73_m2} Low >60 [facility] Comment on above: Result Comment: >60 mL/min/1.73m2 EGFR, calc. for ages 18 and older using theMDRD formula (not corrected for weight), is valid for stablerenal function. GFR/1.73 sq M.predicted MDRD vol rate/area 26.2 mL/min/{1.73_m2} Low >60 [facility] Comment on above: Result Comment: >60 mL/min/1.73m2 EGFR, calc. for ages 18 and older using theMDRD formula (not corrected for weight), is valid for stablerenal function. Glucose mass conc 149 mg/dL Critically high 74-109 [facility] Potassium molar conc 4.1 mmol/L Normal 3.5-5.1 [facility] Sodium molar conc 141 mmol/L Normal 132-144 [facility] Urea nitrogen mass conc 25 mg/dL Critically high 8-23 [facility] CBC With Platelet and Differ entialon 06-06-2018 Basophils Auto #/vol (Bld) 0.0 10*3/uL Normal 0.0-0.2 [facility] Basophils/100 WBC Auto (Bld) 0.1 % Normal [facility] Eosinophils Auto #/vol (Bld) 0.0 10*3/uL Normal 0.0-0.7 [facility] Eosinophils/100 WBC Auto (Bld) 0.0 % Normal [facility] Erythrocyte distribution width Auto Ratio (RBC) 13.5 % Normal 11.5-14.5 [facility] Hematocrit Auto Volume Fraction (Bld) 35.0 % Low 37.0-47.0 [facility] Hemoglobin mass conc (Bld) 12.0 g/dL Normal 12.0-16.0 [facility] Lymphocytes Auto #/vol (Bld) 1.0 10*3/uL Normal 1.0-4.8 [facility] Lymphocytes/100 WBC Auto (Bld) 8.2 % Normal [facility] MCH Auto Entitic mass (RBC) 32.8 pg Critically high 27.0-31.3 [facility] MCHC Auto mass conc (RBC) 34.4 % Normal 33.0-37.0 [facility] MCV Auto Entitic volume (RBC) 95.3 fL Normal 82.0-100.0 [facility] Monocytes Auto #/vol (Bld) 1.0 10*3/uL Critically high 0.2-0.8 [facility] Monocytes/100 WBC Auto (Bld) 8.0 % Normal [facility] Neutrophils Auto #/vol (Bld) 10.1 10*3/uL Critically high 1.4-6.5 [facility] Neutrophils/100 WBC Auto (Bld) 83.7 % Normal [facility] Platelets Auto #/vol (Bld) 146 10*3/uL Normal 130-400 [facility] RBC Auto #/vol (Bld) 3.67 10*6/uL Low 4.20-5.40 [facility] WBC Auto #/vol (Bld) 12.1 10*3/uL Critically high 4.8-10.8 [facility] XR CHEST (2 VW)on 06-06-2018 XR CHEST (2 VW) EXAMINATION: XR CHES T (2 VW)REASON FOR EXAM: ordered per doctor Desirae FINDINGS: 2 views of the chest reveal thoracotomy changes overlying the midline. Increased linear markings overlie the left base having the appearance of scarring or atelectasis. No consolidating infiltrate overlies the right base which could represent early developing pneumonia. No previous films for comparison.Central and upper lung augustine clear. Bones osteopenic but grossly intact. IMPRESSION: MILD CARDIOMEGALY.BIBASILAR INFILTRATES RIGHT SIDE GREATER THAN LEFT CONSISTENT WITH ATELECTASIS/SCARRING/PNEU MONITIS. Interpreted by:ANDRA Dominguezigned by:Joss Casas MD06/06/18Final result Normal [facility] Basic Metabolic Panel Reflex Mgon 06-05-2018 Anion gap 3 molar conc 11 mmol/L Normal 7-13 [facility] Calcium mass conc 8.9 mg/dL Normal 8.6-10.2 [facility] Chloride molar conc 105 mmol/L Normal 98-107 [facility] CO2 molar conc 25 mmol/L Normal 22-29 [facility] Creatinine mass conc 0.86 mg/dL Normal 0.50-0.90 [facility] GFR/1.73 sq M predicted among blacks MDRD vol rate/area (S/P/Bld) mL/min/{1.73_m2} Normal >60 [facility] Comment on above: Result Comment: >60 mL/min/1.73m2 EGFR, calc. for ages 18 and older using theMDRD formula (not corrected for weight), is valid for stablerenal function. GFR/1.73 sq M.predicted MDRD vol rate/area mL/min/{1.73_m2} Normal >60 [facility] Comment on above: Result Comment: >60 mL/min/1.73m2 EGFR, calc. for ages 18 and older using theMDRD formula (not corrected for weight), is valid for stablerenal function. Glucose mass conc 135 mg/dL Critically high 74-109 [facility] Potassium reflex Mg 4.0 mEq/L Normal 3.5-5.1 [facility] Sodium molar conc 141 mmol/L Normal 132-144 [facility] Urea nitrogen mass conc 13 mg/dL Normal 8-23 [facility] CBC With Platelet and Differ entialon 06-05-2018 RBC morphology finding Nom (Bld) Normal Normal [facility] Platelet Slide Review Normal Normal [facility] Basophils Auto #/vol (Bld) 0.1 10*3/uL Normal 0.0-0.2 [facility] Basophils/100 WBC Auto (Bld) 1.0 % Normal [facility] Eosinophils Auto #/vol (Bld) 0.0 10*3/uL Normal 0.0-0.7 [facility] Eosinophils/100 WBC Auto (Bld) 0.4 % Normal [facility] Erythrocyte distribution width Auto Ratio (RBC) 13.5 % Normal 11.5-14.5 [facility] Hematocrit Auto Volume Fraction (Bld) 40.5 % Normal 37.0-47.0 [facility] Hemoglobin mass conc (Bld) 13.7 g/dL Normal 12.0-16.0 [facility] Lymphocytes Auto #/vol (Bld) 2.0 10*3/uL Normal 1.0-4.8 [facility] Lymphocytes/100 WBC Auto (Bld) 15.5 % Normal [facility] MCH Auto Entitic mass (RBC) 32.4 pg Critically high 27.0-31.3 [facility] MCHC Auto mass conc (RBC) 33.9 % Normal 33.0-37.0 [facility] MCV Auto Entitic volume (RBC) 95.6 fL Normal 82.0-100.0 [facility] Monocytes Auto #/vol (Bld) 1.3 10*3/uL Critically high 0.2-0.8 [facility] Monocytes/100 WBC Auto (Bld) 10.1 % Normal [facility] Neutrophils Auto #/vol (Bld) 9.4 10*3/uL Critically high 1.4-6.5 [facility] Neutrophils/100 WBC Auto (Bld) 73.0 % Normal [facility] Platelets Auto #/vol (Bld) 168 10*3/uL Normal 130-400 [facility] RBC Auto #/vol (Bld) 4.24 10*6/uL Normal 4.20-5.40 [facility] WBC Auto #/vol (Bld) 12.9 10*3/uL Critically high 4.8-10.8 [facility] POCT Glucoseon 06-05-2018 Glucose mass conc 132 mg/dL Critically high 60-115 [facility] XR LUMBAR SPINE (2-3 VIEWS)o n 06-05-2018 XR LUMBAR SPINE (2-3 VIEWS) EXAMINATION: XR LUMBAR SPINE (2-3 VIEWS)CLINICAL HISTORY: postop documentation COMPARISONS: MRI lumbar spine, April 02, 2018FINDINGS: Frontal and lateral views of lumbar spine were obtained. There are pedicle screws and stabilizing struts at L4, L5 and S1 with intervertebral fusion devices at L4-5 and L5-S1. There is wide laminectomy at L4-L5 and S1. There is grade 1 spondylolisthesis at L5-S1 and L4-5. There is advanced discogenic degenerative disease at L2-3 and L3-4. There are no compression deformities.The abdominal aorta is heavily calcified. There are common iliac artery stents.CONCLUSION: UNREMARKABLE STABILIZATION HARDWARE AND INTERVERTEBRAL FUSION HARDWARE AT L4-5 AND L5-S1.Interpreted by:ANDRA Sotoigned by:Tanvir Power MD06/05/18inal result Normal [facility] Basic Metabolic Panel Reflex Mgon 06-04-2018 Anion gap 3 molar conc 13 mmol/L Normal 7-13 [facility] Calcium mass conc 9.1 mg/dL Normal 8.6-10.2 [facility] Chloride molar conc 103 mmol/L Normal 98-107 [facility] CO2 molar conc 23 mmol/L Normal 22-29 [facility] Creatinine mass conc 1.08 mg/dL Critically high 0.50-0.90 [facility] GFR/1.73 sq M predicted among blacks MDRD vol rate/area (S/P/Bld) mL/min/{1.73_m2} Normal >60 [facility] Comment on above: Result Comment: >60 mL/min/1.73m2 EGFR, calc. for ages 18 and older using theMDRD formula (not corrected for weight), is valid for stablerenal function. GFR/1.73 sq M.predicted MDRD vol rate/area 50.4 mL/min/{1.73_m2} Low >60 [facility] Comment on above: Result Comment: >60 mL/min/1.73m2 EGFR, calc. for ages 18 and older using theMDRD formula (not corrected for weight), is valid for stablerenal function. Glucose mass conc 164 mg/dL Critically high 74-109 [facility] Potassium reflex Mg 4.3 mEq/L Normal 3.5-5.1 [facility] Sodium molar conc 139 mmol/L Normal 132-144 [facility] Urea nitrogen mass conc 21 mg/dL Normal 8-23 [facility] CBC With Platelet No Differe ntialon 06-04-2018 Erythrocyte distribution width Auto Ratio (RBC) 13.4 % Normal 11.5-14.5 [facility] Hematocrit Auto Volume Fraction (Bld) 44.5 % Normal 37.0-47.0 [facility] Hemoglobin mass conc (Bld) 15.2 g/dL Normal 12.0-16.0 [facility] MCH Auto Entitic mass (RBC) 32.6 pg Critically high 27.0-31.3 [facility] MCHC Auto mass conc (RBC) 34.3 % Normal 33.0-37.0 [facility] MCV Auto Entitic volume (RBC) 95.1 fL Normal 82.0-100.0 [facility] Platelets Auto #/vol (Bld) 163 10*3/uL Normal 130-400 [facility] RBC Auto #/vol (Bld) 4.68 10*6/uL Normal 4.20-5.40 [facility] WBC Auto #/vol (Bld) 8.3 10*3/uL Normal 4.8-10.8 [facility] FLUORO FOR SURGICAL PROCEDUR ESon 06-04-2018 FLUORO FOR SURGICAL PROCEDURES EXAMINATION: Intraoperative lumbar fusion.CLINICAL HISTORY: Back pain. Lumbar radicular pain.FINDINGS: Fluoroscopy time is recorded as 90 seconds. There are 23 images stored on the fluoroscopic unit.Initial images reveal surgical instruments defining the field from L3 through L5.Subsequent images reveal PLIF procedure at L4-L5 and L5-S1. Grade 2 anterolisthesis of L5 on S1 noted. There is also grade 1 anterolisthesis of L4 on L5.Metallic plates and pedicle screws are intact. The tip of the S1 pedicle screws project over the soft tissue anterior to the spinal column.[place] bone intact.Please see procedural note for more detailed.IMPRESSION: INTRAOPERATIVE PLIF L3-L5.Interpreted by:ANDRA Dominguezigned by:Joss Casas MD06/04/18inal result Normal [facility] POCT Glucoseon 06-04-2018 Glucose mass conc 106 mg/dL Normal 60-115 [facility] POC Performed on ACCU-CHEK Normal [facility] Surgical Specimenon 06-04-20 Surgical Specimen Invalid Interpretation Code [facility] Comment on above: Result Comment: [id number] [place] [address] [id number] SURGICAL PATHOLOGY REPORTPatient Name: MARLENI NGUYEN Accession No: [id number] Age Sex: 1950 [place] [place] [id number] [id number] Collected: 06/04/2018Med Rec No: [id number] Received: 06/05/2018Attend Phys: SHAKA DESIRAE Completed: 06/07/2018Perform Phys: SHAKA YOOFINAL DIAGNOSIS:DISC TISSUE-DISC CARTILAGE WITH DEGENERATIVE CHANGE AND FOCAL AREA OF CALCIFICATIONAND SUGGESTION OF PSEUDOCHONDROCALCINOSIS. SIVES/SIVESCLINICAL INFORMATION:L5-S1 radiculopathy, spondylosis.SPECIMEN:DiscGROSS DESCRIPTION:The specimen container is labeled with the patient's name and designated spine . In formalin are multiple irregular shaggy fragments of vail andred, firm tissue measuring in aggregate 3.5 x 3 x 1 cm. Representativeportions submitted in two cassettes after a brief decalcification. ALDWA/SCDANCPT: [id number] ENGEL M.D. 06/07/2018 Electronically signed out by Page 1 of 1 Basic Metabolic Panelon Anion gap 3 molar conc 14 mmol/L Critically high 7-13 [facility] Calcium mass conc 9.7 mg/dL Normal 8.6-10.2 [facility] Chloride molar conc 100 mmol/L Normal 98-107 [facility] CO2 molar conc 25 mmol/L Normal 22-29 [facility] Creatinine mass conc 1.15 mg/dL Critically high 0.50-0.90 [facility] GFR/1.73 sq M predicted among blacks MDRD vol rate/area (S/P/Bld) 56.7 mL/min/{1.73_m2} Low >60 [facility] Comment on above: Result Comment: >60 mL/min/1.73m2 EGFR, calc. for ages 18 and older using theMDRD formula (not corrected for weight), is valid for stablerenal function. GFR/1.73 sq M.predicted MDRD vol rate/area 46.8 mL/min/{1.73_m2} Low >60 [facility] Comment on above: Result Comment: >60 mL/min/1.73m2 EGFR, calc. for ages 18 and older using theMDRD formula (not corrected for weight), is valid for stablerenal function. Glucose mass conc 107 mg/dL Normal 74-109 [facility] Potassium molar conc 3.6 mmol/L Normal 3.5-5.1 [facility] Sodium molar conc 139 mmol/L Normal 132-144 [facility] Urea nitrogen mass conc 21 mg/dL Normal 8-23 [facility] CBC With Platelet No Differe ntialon 05-23-2018 Erythrocyte distribution width Auto Ratio (RBC) 13.5 % Normal 11.5-14.5 [facility] Hematocrit Auto Volume Fraction (Bld) 44.4 % Normal 37.0-47.0 [facility] Hemoglobin mass conc (Bld) 15.5 g/dL Normal 12.0-16.0 [facility] MCH Auto Entitic mass (RBC) 33.0 pg Critically high 27.0-31.3 [facility] MCHC Auto mass conc (RBC) 34.9 % Normal 33.0-37.0 [facility] MCV Auto Entitic volume (RBC) 94.4 fL Normal 82.0-100.0 [facility] Platelets Auto #/vol (Bld) 199 10*3/uL Normal 130-400 [facility] RBC Auto #/vol (Bld) 4.71 10*6/uL Normal 4.20-5.40 [facility] WBC Auto #/vol (Bld) 7.0 10*3/uL Normal 4.8-10.8 [facility] Culture, MRSA Screenon 05-23 Culture, MRSA Screen ORDERED BY: CLIFTON STONE: Nares Nasal COLLECTED: 05/23/18 11:37ANTIBIOTICS AT SERGIO.: RECEIVED : 05/23/18 11:37Culture, MRSA Screen FINAL 05/24/18 12:57 No MRSA isolated Normal [facility] Culture, Urineon 05-23-2018 Culture, Urine OR DERED BY: CLIFTON STONE: Urine Clean Catch COLLECTED: 05/23/18 12:44ANTIBIOTICS AT SERGIO.: RECEIVED : 05/23/18 12:44Culture, Urine FINAL 05/25/18 10:55 No growth 24 hours Normal [facility] Prothrombin Timeon 8 INR Coag RelTime (PPP) 1.1 {INR} Normal [facility] Comment on above: Result Comment: Neri mmended INR therapeutic ranges for oral anticoagulanttherapyProphylaxis/treatment of: INR Venous Thrombosis, Pulmonary Embolism 2.0-3Prevention of Systemic Embolism from: Atrial Fibrillation 2.0-3.0 Myocardial Infarction 2.0-3.0 Mechanical Prosthetics Heart Valves 2.5-3.5 Recurrent Systemic Embolism 2.5-3.5Guidelines for patients with coagulopathy, e.g. liver disease:Use the Protime resulted in seconds. Mild 12.9-17.0 sec Moderate 17.1-22.6 sec Severe G.T. 22.6 sec Prothrombin time (PT) Coag time (PPP) 11.0 s Normal 9.6-12.3 [facility] Type and Screen Capture 3 sc rn cellon 05-23-2018 Bilirubin mass conc PATIENT: WENDY ANDRADE LOC: [facility] BILL# : [id number] : 1950 SEX: FORDERED BY: CHASE Lua ORDERED : 05/23/2018 09:33 COLLECTED: 05/23/2018 11:41ORDER : [id number] RECEIVED : 05/23/2018 11:41 --------TEST NAME RESULT UNITS RANGES ABN FL STABORH Capture AB POS FAntibody 3 Cell Scrn Captu NEG F --- Normal [facility] Urinalysis, reflex to cultur winnie 05-23-2018 Urine Reflexed to Culture YES Normal [facility] Bilirubin Ql (U) Negative Normal Negative [facility] Clarity Nom (U) Clear Normal Clear [facility] Color Nom (U) Yellow Normal Straw/[place] [facility] Glucose Ql (U) Negative Normal Negative [facility] Hemoglobin Test strip Ql (U) Negative Normal Negative [facility] Ketones Ql (U) TRACE Abnormal Negative [facility] Leukocyte esterase Test strip Ql (U) TRACE Abnormal Negative [facility] Nitrite Test strip Ql (U) Negative Normal Negative [facility] pH Test strip (U) 6.0 [pH] Normal 5.0-9.0 [facility] Protein Test strip Ql (U) TRACE Abnormal Negative [facility] Specific gravity Relative Density (U) 1.010 Normal 1.005-1.03 [facility] Urobilinogen Test strip Qn (U) 0.2 {Dago'U}/dL Normal < 2.0 [facility] Urine Microscopicon 05-23-20 18 Casts LM.LPF #/area (Urine sed) 0-1 Hyaline Normal [facility] RBC Test strip #/vol (U) 0-2 Normal 0-2 [facility] Urine Amorphous 1+ Normal [facility] WBC #/vol (U) 3-5 Normal 0-5 [facility] XR SPINE ENTIRE (2-3 VIEWS)o n 05-23-2018 XR SPINE ENTIRE (2-3 VIEWS) PREOP NO DICTATION Interpreted by: Barb Wetzel MD Signed by: Barb Wetzel MD 06/08/18 Final result Normal [facility] Vital Signs Date Time Vital Sign Value Performing Clinician Suzanna matthews 09-26-2022 12:59-0500 Blood Pressure Location Alfredo COELHO [facility] 09-26-2022 12:59-0500 Diastolic blood pressure 76 mm[Hg] Alfredo COELHO [facility] 09-26-2022 12:59-0500 Heart rate 78 /min Alfredo COELHO [facility] 09-26-2022 12:59-0500 Respiratory rate 16 /min Alfredo COELHO [facility] 09-26-2022 12:59-0500 Systolic blood pressure 124 mm[Hg] Alfredo COELHO [facility] 03-04-2022 10:16-0400 Blood Pressure Location Alfredo COELHO [facility] 03-04-2022 10:16-0400 Diastolic blood pressure 70 mm[Hg] Alfredo COELHO [facility] 03-04-2022 10:16-0400 Heart rate 56 /min Alfredo COELHO [facility] 03-04-2022 10:16-0400 Respiratory rate 16 /min Alfredo COELHO [facility] 03-04-2022 10:16-0400 Systolic blood pressure 129 mm[Hg] Alfredo COELHO [facility] Encounters Encounter Date Encounter Type Care Provider Facility Start: 10-23-2023 ambulatory Alfredo COELHO Facili ty:[facility] Start: 07-24-2023 ambulatory Alfredo COELHO Facili ty:[facility] Start: 07-21-2023 End: 07-21-2023 ambulatory [facility] Start: 02-03-2023 End: 02-03-2023 ambulatory Referral Self Facility:[facility] Start: 01-18-2023 End: 01-19-2023 ambulatory ISABEL DODGE Facility:[facility] Start: 01-10-2023 End: 01-11-2023 ambulatory ISABEL DODGE Facility:[facility] Start: 01-04-2023 End: 01-04-2023 ambulatory [facility] Start: 09-26-2022 End: 09-27-2022 ambulatory Alfredo COELHO Facility:[facility] Start: 09-26-2022 End: 09-26-2022 Patient encounter procedure [facility] COELHO [facility] Start: 09-07-2022 End: 09-08-2022 ambulatory SARAY MONCADA Facility:[facility] Start: 08-29-2022 End: 08-30-2022 ambulatory ALFREDO COELHO Facility:[facility] Start: 03-16-2022 End: 03-17-2022 ambulatory JOHN EPPERSON Facility:[facility] Start: 03-04-2022 End: 03-04-2022 Patient encounter procedure Alfredo COELHO [facility] Start: 02-22-2022 End: 02-23-2022 ambulatory ALFREDO COELHO Facility:[facility] Start: 02-16-2022 End: 02-17-2022 ambulatory JOHN EPPERSON Facility:[facility] Start: 02-04-2022 End: 02-05-2022 ambulatory JOHN EPPERSON Facility:[facility] Start: 02-02-2022 End: 02-02-2022 Patient encounter procedure II Jack Vogt Work Phone: [facility] Start: 01-31-2022 End: 02-01-2022 ambulatory JOHN EPPERSON Facility:[facility] Start: 06-04-2018 End: 06-07-2018 Evaluation and management of inpatient SHAKA Dali [facility] Start: 05-23-2018 End: 05-26-2018 Patient encounter SHAKA Dali [facility] Start: 05-23-2018 End: 05-28-2018 Patient encounter SHAKA Dali [facility] Procedures Date Procedure Procedure Detail Performing Clinician Start: 02-02-2022 Screening mammograph y of bilateral breasts II Jack Vogt Work Phone: Start: 06-07-2018 INCENTIVE SPIROMETRY RT SHAKA DESIRAE Start: 06-07-2018 PULSE OXIMETRY, CONTINUOUS SHAKA DESIRAE Start: 06-07-2018 INCENTIVE SPIROMETRY RT SHAKA DESIRAE Start: 06-07-2018 INCENTIVE SPIROMETRY RT SHAKA DESIRAE Start: 06-07-2018 PULSE OXIMETRY, CONTINUOUS SHAKA DESIRAE Start: 06-07-2018 INCENTIVE SPIROMETRY RT SHAKA DESIRAE Start: 06-07-2018 INCENTIVE SPIROMETRY RT SHAKA DESIRAE Start: 06-07-2018 INITIATE OXYGEN THER APY PROTOCOL SHAKA DESIRAE Start: 06-07-2018 PULSE OXIMETRY, CONTINUOUS SHAKA DESIRAE Start: 06-07-2018 DISCHARGE PATIENT SHAKA YO O Start: 06-07-2018 IP CONSULT TO HOME C ARE NEEDS SHAKA DESIRAE Start: 06-07-2018 INCENTIVE SPIROMETRY RT SHAKA DESIRAE Start: 06-07-2018 Blood count complete auto&auto difrntl wbc SHAKA DESIRAE Start: 06-07-2018 Comprehensive metabo lic panel SHAKA DESIRAE Start: 06-07-2018 PULSE OXIMETRY, CONTINUOUS SHAKA DESIRAE Start: 06-07-2018 INTAKE AND OUTPUT SHAKA YO O Start: 06-07-2018 PULSE OXIMETRY, CONTINUOUS SHAKA DESIRAE Start: 06-07-2018 INCENTIVE SPIROMETRY RT SHAKA DESIRAE Start: 06-06-2018 INCENTIVE SPIROMETRY RT SHAKA DESIRAE Start: 06-06-2018 PULSE OXIMETRY, CONTINUOUS SHAKA DESIRAE Start: 06-06-2018 INCENTIVE SPIROMETRY RT SHAKA DESIRAE Start: 06-06-2018 INCENTIVE SPIROMETRY RT SHAKA DESIRAE Start: 06-06-2018 PULSE OXIMETRY, CONTINUOUS SHAKA DESIRAE Start: 06-06-2018 INCENTIVE SPIROMETRY RT SHAKA DESIRAE Start: 06-06-2018 INCENTIVE SPIROMETRY RT SHAKA DESIRAE Start: 06-06-2018 PULSE OXIMETRY, CONTINUOUS SHAKA DESIRAE Start: 06-06-2018 INCENTIVE SPIROMETRY RT SHAKA DESIRAE Start: 06-06-2018 INCENTIVE SPIROMETRY RT SHAKA DESIRAE Start: 06-06-2018 INITIATE OXYGEN THER APY PROTOCOL SHAKA DESIRAE Start: 06-06-2018 PULSE OXIMETRY, CONTINUOUS SHAKA DESIRAE Start: 06-06-2018 Radiologic exam ches t 2 views SHAKA DESIRAE Start: 06-06-2018 INCENTIVE SPIROMETRY RT SHAKA DESIRAE Start: 06-06-2018 Basic metabolic pane l calcium total SHAKA DESIRAE Start: 06-06-2018 Blood count complete auto&auto difrntl wbc SHAKA DESIRAE Start: 06-06-2018 PULSE OXIMETRY, CONTINUOUS SHAKA DESIRAE Start: 06-06-2018 INTAKE AND OUTPUT SHAKA YO O Start: 06-06-2018 PULSE OXIMETRY, CONTINUOUS SHAKA DESIRAE Start: 06-06-2018 NURSING COMMUNICATION B O DESIRAE Start: 06-06-2018 INCENTIVE SPIROMETRY RT SHAKA DESIRAE Start: 06-05-2018 INCENTIVE SPIROMETRY RT SHAKA DESIRAE Start: 06-05-2018 PULSE OXIMETRY, CONTINUOUS SHAKA DESIRAE Start: 06-05-2018 INCENTIVE SPIROMETRY RT SHAKA DESIRAE Start: 06-05-2018 INCENTIVE SPIROMETRY RT SHAKA DESIRAE Start: 06-05-2018 PULSE OXIMETRY, CONTINUOUS SHAKA DESIRAE Start: 06-05-2018 INCENTIVE SPIROMETRY RT SHAKA DESIRAE Start: 06-05-2018 INCENTIVE SPIROMETRY RT SHAKA DESIRAE Start: 06-05-2018 PULSE OXIMETRY, CONTINUOUS SHAKA DESIRAE Start: 06-05-2018 INCENTIVE SPIROMETRY RT SHAKA DESIRAE Start: 06-05-2018 Radex spine lumbosac ral 2/3 views SHAKA DESIRAE Start: 06-05-2018 INCENTIVE SPIROMETRY RT SHAKA DESIRAE Start: 06-05-2018 PULSE OXIMETRY, CONTINUOUS SHAKA DESIRAE Start: 06-05-2018 INITIATE OXYGEN THER APY PROTOCOL SHAKA DESIRAE Start: 06-05-2018 INCENTIVE SPIROMETRY RT SHAKA DESIRAE Start: 06-05-2018 Blood count complete auto&auto difrntl wbc SHAKA DESIRAE Start: 06-05-2018 Comprehensive metabo lic panel SHAKA DESIRAE Start: 06-05-2018 ELEVATE HEELS OFF OF BED SHAKA DESIRAE Start: 06-05-2018 HEAD OF BED 60 DEGRE ES OR LESS SHAKA DESIRAE Start: 06-05-2018 NURSING COMMUNICATION B O DESIRAE Start: 06-05-2018 TURN PATIENT SHAKA DESIRAE Start: 06-05-2018 PULSE OXIMETRY, CONTINUOUS SHAKA DESIRAE Start: 06-05-2018 ACTIVITY TOLERATED B O DESIRAE Start: 06-05-2018 AMBULATE PATIENT SHAKA DESIRAE Start: 06-05-2018 CATHETER REMOVAL SHAKA DESIRAE Start: 06-05-2018 DAILY WEIGHTS SHAKA DESIRAE Start: 06-05-2018 INTAKE AND OUTPUT SHAKA YO O Start: 06-05-2018 OT EVAL AND TREAT SHAKA YO O Start: 06-05-2018 PT EVAL AND TREAT SHAKA YO O Start: 06-05-2018 PULSE OXIMETRY, CONTINUOUS SHAKA DESIRAE Start: 06-05-2018 INCENTIVE SPIROMETRY RT SHAKA DESIRAE Start: 06-04-2018 INCENTIVE SPIROMETRY RT SHAKA DESIRAE Start: 06-04-2018 PULSE OXIMETRY, CONTINUOUS SHAKA DESIRAE Start: 06-04-2018 INCENTIVE SPIROMETRY RT SHAKA DESIRAE Start: 06-04-2018 PLACE INTERMITTENT P NEUMATIC COMPRESSION DEVICE SHAKA DESIRAE Start: 06-04-2018 PULSE OXIMETRY, CONTINUOUS SHAKA DESIRAE Start: 06-04-2018 ADVANCE DIET TOLE RATED (NURSING COMMUNICATION) SHAKA DESIRAE Start: 06-04-2018 CONTINUE INDWELLING CATHETHER SHAKA DESIRAE Start: 06-04-2018 ELEVATE HOB SHAKA DESIRAE Start: 06-04-2018 FULL CODE SHAKA DESIRAE Start: 06-04-2018 INITIATE OXYGEN THER APY PROTOCOL SHAKA DESIRAE Start: 06-04-2018 INTAKE AND OUTPUT SHAKA YO O Start: 06-04-2018 NEURO/VASCULAR CHECKS B O DESIRAE Start: 06-04-2018 NOTIFY PHYSICIAN (SPECIFY) SHAKA DESIRAE Start: 06-04-2018 TOBACCO CESSATION EDUCATION SHAKA DESIRAE Start: 06-04-2018 VITAL SIGNS SHAKA DESIRAE Start: 06-04-2018 WOUND CARE SHAKA DESIRAE Start: 06-04-2018 DIET GENERAL SHAKA DESIRAE Start: 06-04-2018 TELEMETRY MONITORING SHAKA DESIRAE Start: 06-04-2018 Blood count complete automated SHAKA DESIRAE Start: 06-04-2018 Comprehensive metabo lic panel SHAKA DESIRAE Start: 06-04-2018 PATIENT STATUS (FROM ED OR OR/PROCEDURAL) SHAKA DESIRAE Start: 06-04-2018 TRANSFER PATIENT SHAKA DESIRAE Start: 06-04-2018 FLUORO FOR SURGICAL PROCEDURES SHAKA DESIRAE Start: 06-04-2018 SURGICAL PATHOLOGY SHAKA Y OO Start: 06-04-2018 SURGICAL PATHOLOGY SHAKA Y OO Start: 06-04-2018 POC GLUCOSE FINGERSTICK SHAKA DESIRAE Start: 06-04-2018 POCT GLUCOSE SHAKA DESIRAE Start: 05-23-2018 Culture bacterial quanttative colony count urine SHAKA DESIRAE Start: 05-23-2018 Microscopic urinalysis SHAKA DESIRAE Start: 05-23-2018 TYPE AND SCREEN SHAKA DESIRAE Start: 05-23-2018 Cul prsmptv pthgnc o rganism scrn w/colony estimj SHAKA DESIRAE Start: 05-23-2018 Radex entir thrc lmb r crv sac spi w/skull 2/3 vw SHAKA DESIRAE Start: 05-23-2018 Blood count complete automated SHAKA DESIRAE Start: 05-23-2018 Prothrombin time SHAKA DESIRAE Start: 05-23-2018 URINE RT REFLEX TO CULTURE SHAKA DESIRAE Start: 05-23-2018 Basic metabolic pane l calcium total SHAKA DESIRAE Start: 05-23-2018 EKG 12-LEAD SHAKA DESIRAE Cholecystectomy Alfredo WILSON Colonoscopy Alfredo COELHO Tonsillectomy Alfredo COELHO Immunizations Immunization Date Immunization Notes Care Provider [facility] 07-04-2022 influenza virus vaccine, unspecified formulation Alfredo COELHO [facility] 07-04-2022 SARS-CoV-2 (COVID-19 ) [id number] Alfredo COELHO [facility] 06-24-2021 influenza virus vaccine, unspecified formulation Alfredo COELHO [facility] 06-24-2021 SARS-CoV-2 (COVID-19 ) mRNA BNT-162b2 vax Alfredo COELHO [facility] Comment on above: Result Comment: 2022: [id number] 11-17-2020 SARS-CoV-2 (COVID-19 ) mRNA BNT-162b2 neelam COELOH [facility] Comment on above: Result Comment: 2022: [id number] 10-27-2020 SARS-CoV-2 (COVID-19 ) mRNA BNT-162b2 brandyx Alfredo COELHO [facility] Comment on above: Result Comment: 2022: [id number] 07-08-2020 influenza virus vaccine, unspecified formulation Alfredo COELHO [facility] Payers Date Payer Category Payer Self-pay [id number] 2017 Medicare [id number] 1960 Medicare [id number] 1959 Private Health Insurance [facility] [id number] 1950 Unknown [id number] 1950 Unknown [id number] 1950 Unknown [id number] 1950 Unknown [id number] 1949 Unknown [id number] 1950 Unknown [id number] 1949 Unknown [id number] 1950 Unknown [id number] 1950 Unknown [id number] 1950 Unknown [id number] 1950 Unknown [id number] 1950 Unknown [id number] 1950 Unknown [id number] Medicare Medicare [id number] Unknown [place] BC/BS [id number] Unknown [id number] Social History Date Type Detail Facility Start: 03-25-2021 End: 09-26-2022 Tobacco smoking status NHIS Ex-smoker (finding) [facility] End: 10-11-2020 History of tobacco use [facility] Work Phone: Start: 1950 Sex Assigned At Female F [facility] Functional Status Date Assessment Result Facility 09-26-2022 Functional Status N/A [facility] 03-04-2022 Functional Status N/A [facility] Clinical Notes 03-04-2022 to 07-21-2023 Note Date & Type Note Facility 07-21-2023 Note [facility] Subjective Marleni Nguyen is a 72 y.o. year old female patient being seen for 6 mo follow up CAD, hypertension, hyperlipidemia, and carotid artery stenosis. C/o LE edema, and she does not take lasix because of her kidney issues. Gets left-sided chest pain lasting seconds at a time. FONTANA remains unchanged. However, she says she is not able to exert herself at all. Her son does all her grocery shopping. 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 Coronary stent patent Pulmonary embolus ([facility]/HCC) Hyperlipidemia Hypertensive disorder Osteoarthritis PVD (peripheral vascular disease) ([facility]) Allergy to statin medication Anemia due to chronic blood loss 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 Atherosclerosis of coronary artery without angina pectoris Benign essential hypertension Carotid artery occlusion without infarction Celiac artery compression syndrome ([facility]) Daytime somnolence Decreased estrogen level Degenerative lumbar spinal stenosis Depressive disorder Dissection of abdominal aorta ([facility]) Fibrocystic breast changes Fibromyalgia Gastroesophageal reflux disease Generalized abdominal pain History of thromboembolism of vein Insomnia Diabetic renal disease ([facility]) Left foot drop Lumbar radiculopathy Lumbosacral spondylosis without myelopathy Nausea and vomiting Neurogenic claudication Obesity Age related osteoporosis Osteoporosis Spondylolisthesis of lumbar region Peripheral venous insufficiency Proteinuria Sinus arrhythmia Sinusitis Thyroid nodule Allergy to seafood Current nicotine use History of coronary artery bypass surgery History of pulmonary embolism Irritable bowel syndrome Myalgia Postsurgical percutaneous transluminal coronary angioplasty status Primary osteoarthritis of both knees Pulmonary embolism with infarction ([facility]) Statin intolerance Type 2 diabetes mellitus with other diabetic kidney complication ([facility]) Tobacco dependence Stage 4 chronic kidney disease ([facility]) Family History Problem Relation Name Age of Onset Coronary artery disease Mother Stroke Mother Coronary artery disease Father Ovarian cancer Sister Social History Tobacco Use Smoking status: Every Day Types: Cigarettes Passive exposure: Past Smokeless tobacco: Never Tobacco comments: Uses Vuse vape. Nicotine content is 2.4. Substance Use Topics Alcohol use: Not Currently Comment: OCCASIONAL Drug use: Never HPI She is a 72 yo woman with history of CAD s/p CABG in 1999 [MAJANO to LAD, patent free LISSETH to PDA, and occluded radial graft to OM] and PAD, renal artery stenosis. She is s/p stenting to the left main, proximal LAD, mid circumflex on 02/03/2016. On 04/07/2016 she underwent bilateral common iliac stenting. At visit of 03/22/2017 I stopped plavix given it had been more than 1 year after the stenting of the heart. She is not using the CPAP for LEE due to the mask being uncomfortable. She has lost weight doing low carb diet. She has hypertension on treatment. She has hypercholesterolemia and hypertriglyceridemia on treatment. Statins cause muscle pain. Previously Dr Vogt has suggested Repatha (PCSK9 inhibitor). She can't tolerate statins. She is on zetia and fenofibrate. Given that her LDL was 76 on 09/20/2016 it is hard to push for it at this time. She will not be able to get coverage at this level of LDL. She is exsmoker stopped October 16, 2015 at 2 pm, but back to smoking about half a pack daily. history of pulmonary embolism 6 years ago and has been on coumadin since then. She had pneumonia at that time. Previously I stopped HCTZ and her renal function returned to normal. A prior CT scan w/o contrast suggested an infrarenal dissection; a repeat CT scan with contrast did not show dissection. She had a DVT in the RUE in 01/2020 and was started on eliquis. She has been complaining of generally feeling fatigue and tiredness. She has occasional chest pain symptoms and shortness of breath on exertion. She has bilateral lower extremity edema but does not like to take diuretic therapy. She uses a cane to ambulate. No stroke symptoms. She is limited by her knee pain and back pain. Review of Systems Constitutional: Positive for malaise/fatigue. Cardiovascular: Positive for chest pain, dyspnea on exertion, leg swelling and palpitations. Musculoskeletal: Positive for arthritis, back pain, joint pain and myalgias. All other systems reviewed and are negative. Objective Visit Vitals BP 164/84 (BP Location: Left arm, Patient Position: Sitting) Pulse 82 Ht 1.6 m (5' 3 ) Wt 79.8 kg (176 lb) SpO2 97% BMI 31.18 kg/m??? Smoking Status Every Day BSA 1.88 m??? Physical Exam Constitutional: Appearance: (more content not included)... [facility] 02-23-2023 Note Pre op risk stratifi cation for stem cell injections to knees. RCRI= 2 points Class III risk, 10.1% 30 day risk of , [place] or cardiac arrest. From a cardiology perspective she may proceed with planned low risk procedure. Will need to hold Eliquis 2-3 days prior to procedure. Isabel Dodge BIOLOGICAL CHEMIST Division of Cardiology, [facility]- [phone] Pager- [phone] Email- [email or web address] 01-04-2023 Note Ordered Carotid US t o assess level of stenosis- no neurological events or concerns noted. [facility] 01-04-2023 Note Lipid fairly stable with tricor and zetia Pt intolerant of statin, and PCSK9 inhibitor was not affordable [facility] 01-04-2023 Note Hypertension is well controlled 138/74 continue all medications [facility] 01-04-2023 Note stable [facility] 01-04-2023 Note Coronary artery dise ase is stable, no concerning symptoms Continue GDMT- ASA, zetia, metoprolol, tricor continue risk factor modifications- heart healthy diet, regular exercise as tolerated and continue all medications. [facility] 01-04-2023 Note Review of Systems Constitutional: Positive for malaise/fatigue. Cardiovascular: Positive for dyspnea on exertion and leg swelling. Negative for chest pain, irregular heartbeat, near-syncope, palpitations and syncope. Neurological: Negative for dizziness, headaches and light-headedness. Marleni is here for a 6 month follow up. She does complain of LE edema. States it's been like this for awhile and no one seems to know why or how she can get rid of it. She also complains of shortness of breath with exertion. She is fairly sedentary due to her legs, so when she does get up and move around, she gets out of breath fairly easily. She states she does get fatigued easily due to her legs, knees, and back. [facility] 01-04-2023 Note [facility] PROGR ESS NOTE HPI: Marleni Nguyen is a 72 y.o. female here for routine f/U for CAD s/p CABG, States shortness of breath and leg swelling are no worse than usual. States that she went to [place] yesterday to visit and did a lot of walking and when she got home that evening her leg swelling was down. Previous HPI . PMHx: 1. CAD s/p CABG in 1998 [MAJANO to LAD, patent free LISSETH to PDA, and occluded radial graft to OM] , s/p stenting to the left main, proximal LAD, mid circumflex on 02/03/2016. 2. PAD - 04/07/2016 she underwent bilateral common iliac stenting. 3. Renal artery stenosis - renal fxn stable, medically managed (prior CT scan w/o contrast suggested an infrarenal dissection; a repeat CT scan with contrast did not show dissection) 4. LEE - not using CPAP due to the mask being uncomfortable. 5. Hypertension on treatment. 6. Hypercholesterolemia and hypertriglyceridemia - Statins cause muscle pain. Previously Dr Vogt has suggested Repatha (PCSK9 inhibitor). She can't tolerate statins. She is on zetia and fenofibrate. Given that her LDL was 76 on 09/20/2016 it is hard to push for it at this time. She will not be able to get coverage at this level of LDL. 7. Smoker - quit smoking 09/2019 8. Hx of pulmonary embolism 4 years ago 9. DVT in the RUE in 01/2020 and was started on eliquis. 05/17/21: -Back in March she had a colonoscopy and had a polyp removed. 1 week after her polyp removal she developed GI bleeding. She received 2 units of PRBCs. Her PCP held her anticoagulation for 1 month and restarted Eliquis at 2.5mg BID last week. Denies any issues with bleeding since then. -She c/o easy bruising. -Recently had a CT abdomen/pelvis which found a lesion on her left kidney. She will be f/u with urology in June,. -Her LE edema is chronic and unchanged. -She gets LH with bending forward/standing up -Denies CP, palpitations, orthopnea, PND, syncope. 01/21/22 -She notes a recent hx of a GI bug. She lost 10# during that time - her legs became normal . When she gained the weight back, her LE swelling came back and she feels like it has worsened. -C/o persistent BLE achiness - she does not hx of fibromyalgia, lyrica is not helping -She is currently following with urology, Dr. Coelho, for the lesion on her kidney. She is due for a renal ultrasound. -She gets occasional dizziness if she stands too quickly -She denies any c/o chest pain, dyspnea at rest, orthopnea, PND, palpitations, syncope, bleeding issues. -She is unsure of FONTANA as she does not exert herself as she is limited d/t back and knee pain. -She reports hx of higher BPs in right arm compared to left arm. TESTING: Carotid u/s 05/27/2020: mild right ICA stenosis, moderate left ICA stenosis. Duplex venous 01/2020: axillary/brachial DVT Prior testing/procedures: Cr 04/19/2019: 1.94 (this was done prior to back MRI). CBC, BMP on 09/28/2018: normal. ECG 10/25/2017: Normal sinus rhythm, possible left atrial enlargement. CT abdomen without contrast 05/17/2019: Note is made of extensive atherosclerosis, infrarenal dissection, right common iliac artery stent, infrarenal ectasia up to 2.8 cm. BMP 05/29/2019 after stopping hydrochlorothiazide showed normalization of creatinine to 1.0. Potassium 4.3. She underwent a duplex ultrasound of the renal arteries 09/20/2016. This showed >60% stenosis in the RRA, <60% stenosis in the LRA. 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 I think that makes it less signficant. Iliac stenting 04/07/2016: Successful balloon dilatation and stenting of 90% left common iliac artery stenosis reduced to 0% with an OmniLink 9 x 29 mm stent. Successful balloon dilatation and stenting of 90% ostial right common iliac artery stenosis reduced to 0% using an OmniLink 9 x 29 mm stent. PCI 02/03/2016: 1. Successful balloon dilatation and drug-eluting stenting of 99% left main stenosis using a Promus Premier 3.5 x 20 mm drug-eluting stent postdilated up to 4.5 mm at high pressures. 2. Successful balloon dilatation and drug-eluting stenting of 95% proximal LAD stenosis going into the diagonal branch using a Promus Premier 3.0 x 32 mm drug-eluting stent postdilated to 3.0 mm and 4.0 mm at high pressures. 3. Successful balloon dilatation and drug-eluting stenting of 85 to 90% stenosis in the mid circumflex using a Promus Premier 3.0 x 38 mm drug-eluting stent postdilated to 3.0 mm at high pressures. cardiac catheterization on 12/28/2015: 1. Severe 3-vessel coronary artery disease. 2. Patent 2/2 bypass grafts (patent MAJANO to LAD and patent free LISSETH to PDA). 3. High-grade stenosis in the distal left main, proximal LAD and mid circumflex vessel. 4. Bilateral (more content not included)... [facility] 09-26-2022 Hospital Discharge instructions Patient Education 09/26/2022 13:45:35 Urinary Tract Infection, Adult, Szmg-qb-Xpis Urinary Tract Infection, Adult A urinary tract infection (UTI) is an infection of any part of the urinary tract. The urinary tract includes: The kidneys. The ureters. The bladder. The urethra. These organs make, store, and get rid of pee (urine) in the body. What are the causes? This is caused by germs (bacteria) in your genital area. These germs grow and cause swelling (inflammation) of your urinary tract. What increases the risk? You are more likely to develop this condition if: You have a small, thin tube (catheter) to drain pee. You cannot control when you pee or poop (incontinence). You are female, and: ?You use these methods to prevent : ?A medicine that kills sperm (spermicide). ?A device that blocks sperm (diaphragm). ?You have low levels of a female hormone (estrogen). ?You are . You have genes that add to your risk. You are sexually active. You take antibiotic medicines. You have trouble peeing because of: ?A prostate that is bigger than normal, if you are male. ?A blockage in the part of your body that drains pee from the bladder (urethra). ?A kidney stone. ?A nerve condition that affects your bladder (neurogenic bladder). ?Not getting enough to drink. ?Not peeing often enough. You have other conditions, such as: ?Diabetes. ?A weak disease-fighting system (immune system). ?Sickle cell disease. ?Gout. ?Injury of the spine. What are the signs or symptoms? Symptoms of this condition include: Needing to pee right away (urgently). Peeing often. Peeing small amounts often. Pain or burning when peeing. Blood in the pee. Pee that smells bad or not like normal. Trouble peeing. Pee that is cloudy. Fluid coming from the vagina, if you are female. Pain in the belly or lower back. Other symptoms include: Throwing up (vomiting). No urge to eat. Feeling mixed up (confused). Being tired and grouchy (irritable). A fever. Watery poop (diarrhea). How is this treated? This condition may be treated with: Antibiotic medicine. Other medicines. Drinking enough water. Follow these instructions at home: Medicines Take mszi-bso-lvfmufs and prescription medicines only as told by your doctor. If you were prescribed an antibiotic medicine, take it as told by your doctor. Do not stop taking it even if you start to feel better. General instructions Make sure you: ?Pee until your bladder is empty. ?Do not hold pee for a long time. ?Empty your bladder after sex. ?Wipe from front to back after pooping if you are a female. Use each tissue one time when you wipe. Drink enough fluid to keep your pee pale yellow. Keep all follow-up visits as told by your doctor. This is important. Contact a doctor if: You do not get better after 1 2 days. Your symptoms go away and then come back. Get help right away if: You have very bad back pain. You have very bad pain in your lower belly. You have a fever. You are sick to your stomach (nauseous). You are throwing up. Summary A urinary tract infection (UTI) is an infection of any part of the urinary tract. This condition is caused by germs in your genital area. There are many risk factors for a UTI. These include having a small, thin tube to drain pee and not being able to control when you pee or poop. Treatment includes antibiotic medicines for germs. Drink enough fluid to keep your pee pale yellow. This information is not intended to replace advice given to you by your health care provider. Make sure you discuss any questions you have with your health care provider. Document Released: 02/20/2009 Document Revised: 08/22/2019 Document Reviewed: 03/14/2019 [employer] Patient Education 2019 [employer] Follow Up Care 03/04/2022 10:43:44 With:RONALD BEAULIEU, Alfredo Moya, URL Address: [facility] [address], [place] [address]- [phone] When:Within 10 Month(s) Comments:CT AP w/ contrast [facility] 03-04-2022 Hospital Discharge instructions Patient Education 03/04/2022 10:39:16 Urinary Tract Infection, Adult Urinary Tract Infection, Adult A urinary tract infection (UTI) is an infection of any part of the urinary tract. The urinary tract includes the kidneys, ureters, bladder, and urethra. These organs make, store, and get rid of urine in the body. Your health care provider may use other names to describe the infection. An upper UTI affects the ureters and kidneys (pyelonephritis). A lower UTI affects the bladder (cystitis) and urethra (urethritis). What are the causes? Most urinary tract infections are caused by bacteria in your genital area, around the entrance to your urinary tract (urethra). These bacteria grow and cause inflammation of your urinary tract. What increases the risk? You are more likely to develop this condition if: You have a urinary catheter that stays in place (indwelling). You are not able to control when you urinate or have a bowel movement (you have incontinence). You are female and you: ?Use a spermicide or diaphragm for control. ?Have low estrogen levels. ?Are . You have certain genes that increase your risk (genetics). You are sexually active. You take antibiotic medicines. You have a condition that causes your flow of urine to slow down, such as: ?An enlarged prostate, if you are male. ?Blockage in your urethra (stricture). ?A kidney stone. ?A nerve condition that affects your bladder control (neurogenic bladder). ?Not getting enough to drink, or not urinating often. You have certain medical conditions, such as: ?Diabetes. ?A weak disease-fighting system (immunesystem). ?Sickle cell disease. ?Gout. ?Spinal cord injury. What are the signs or symptoms? Symptoms of this condition include: Needing to urinate right away (urgently). Frequent urination or passing small amounts of urine frequently. Pain or burning with urination. Blood in the urine. Urine that smells bad or unusual. Trouble urinating. Cloudy urine. Vaginal discharge, if you are female. Pain in the abdomen or the lower back. You may also have: Vomiting or a decreased appetite. Confusion. Irritability or tiredness. A fever. Diarrhea. The first symptom in older adults may be confusion. In some cases, they may not have any symptoms until the infection has worsened. How is this diagnosed? This condition is diagnosed based on your medical history and a physical exam. You may also have other tests, including: Urine tests. Blood tests. Tests for sexually transmitted infections (STIs). If you have had more than one UTI, a cystoscopy or imaging studies may be done to determine the cause of the infections. How is this treated? Treatment for this condition includes: Antibiotic medicine. Ydhj-mry-ygehtuj medicines to treat discomfort. Drinking enough water to stay hydrated. If you have frequent infections or have other conditions such as a kidney stone, you may need to see a health care provider who specializes in the urinary tract (urologist). In rare cases, urinary tract infections can cause sepsis. Sepsis is a life-threatening condition that occurs when the body responds to an infection. Sepsis is treated in the hospital with IV antibiotics, fluids, and other medicines. Follow these instructions at home: Medicines Take tsrn-xfi-ozplqvk and prescription medicines only as told by your health care provider. If you were prescribed an antibiotic medicine, take it as told by your health care provider. Do not stop using the antibiotic even if you start to feel better. General instructions Make sure you: ?Empty your bladder often and completely. Do not hold urine for long periods of time. ?Empty your bladder after sex. ?Wipe from front to back after a bowel movement if you are female. Use each tissue one time when you wipe. Drink enough fluid to keep your urine pale yellow. Keep all follow-up visits as told by your health care provider. This is important. Contact a health care provider if: Your symptoms do not get better after 1 2 days. Your symptoms go away and then return. Get help right away if you have: Severe pain in your back or your lower abdomen. A fever. Nausea or vomiting. Summary A urinary tract infection (UTI) is an infection of any part of the urinary tract, which includes the kidneys, ureters, bladder, and urethra. Most urinary tract infections are caused by bacteria in your genital area, around the entrance to your urinary tract (urethra). Treatment for this condition often includes antibiotic medicines. If you were prescribed an antibiotic medicine, take it as told by your health care provider. Do not stop using the antibiotic even if you start to feel better. Keep all follow-up visits as told by your health care provider. This is important. This information is not intended to replace advice given to you by your health care provider. Make sure you discuss any questions you have with your health care provider. Document Released: 06/14/2006 Document Revised: 08/22/2019 Document Reviewed: 03/14/2019 [employer] Patient Education 2020 [employer]. Follow Up Care 06/28/2021 14:36:35 With:Alfredo COELHO MD, URL Address: [facility] [address], [place] [address]- [phone] When:09/03/2022 [facility] Evaluation + Plan note Future Appointments Appointment Date:08/29/2022 01:30:00 PM Scheduled Provider:Alfredo COELHO MD Location:[facility] Appointment Type:URO Office Visit [facility] Evaluation + Plan note Future Appointments Appointment Date:07/24/2023 01:15:00 PM Scheduled Provider:Alfredo COELHO MD Location:[facility] Appointment Type:URO Office Visit [facility] Evaluation note No assessment inform ation [facility] Work Phone: Hospital course Narrative No data available for this section [facility] Progress note No data available for this section [facility] Summary Purpose Family History No Family History Records Found Relationship Condition Age at Onset Recorded Date/T katherine Not Specified Myocardial infarction Unknown father Myocardial infarction Unknown Advance Directives No Advanced Directives Records Found Advance Directive Response Recorded Date/ Time Advance Directives No May 2:17pm Chief Complaint and Reason for Visit Chief Complaint Screening Additional Source Comments INFORMATION SOURCE (unrecogn ized section and content) DATE CREATED AUTHOR 07/06/2018 [facility] DATE CREATED AUTHOR AUTHOR'S ORGANIZ ATION 01/26/2023 [facility] DATE CREATED AUTHOR AUTHOR'S ORGANIZ ATION 02/28/2023 [facility] DATE CREATED AUTHOR AUTHOR'S ORGANIZ ATION 07/23/2023 [facility] DATE CREATED AUTHOR AUTHOR'S ORGANIZ ATION 07/30/2023 [facility] Care Teams (unrecognized sec tion and content) Team Status: Inactive Member Role Status Dates Jack Vogt II MD Primary Care Provider, Referring Provider Active Referral Self Attending Provider Active Team Status: Active Member Role Status Dates Jack Vogt II MD Primary Care Provider Active Goals (unrecognized section and content) Goals may be documented in a n alternate section No data available for this section No data available for this section FOR RECORDS PERTAINING TO PATIENTS WHO ARE OR HAVE BEEN ENROLLED IN A CHEMICAL DEPENDENCY/SUBSTANCEABUSE PROGRAM, SOME INFORMATION MAY BE OMITTED. This clinical summary was aggregated from multiple sources. Caution should be exercised in using it in the provision of clinical care. This summary normalizes information from multiple sources, and as a consequence, information in this document may materially change the coding, format and clinical context of patient data. In addition, data may be omitted in some cases. CLINICAL DECISIONS SHOULD BE BASED ON THE PRIMARY CLINICAL RECORDS. [employer] [facility]. provides no warranty or guarantee of the accuracy or completeness of information in this document.
--- NOTE | 2023-09-18 21:07 | US_ITS ---
The [address] [address] Patient Name: LUPE NGUYEN MRN: [id number] date: 1950 Sex: F Assigned Patient Location: ER Current Patient Location: [place] Accession/Order Number: [id number] Exam Date: 09/18/2023 22:05 Report Date: 09/19/2023 01:12 At the request of: LINDA CRUZ Procedure: US arterial duplex LE LT EXAM: US arterial duplex LE LT HISTORY: cyanotic left 2nd toe reported claudication, resting lower extremity pain, and hyperlipidemia. Report of prior left vascular stent placement. COMPARISON: No comparison arterial lower extremity imaging available at the time of dictation. TECHNIQUE: Multiple sonographic images of the left lower extremity arteries with color Doppler waveform interrogation and velocity measurements. FINDINGS: Triphasic waveforms from the STEVE to the mid iliac artery. Biphasic and monophasic waveforms from the distal femoral artery to the ankle. Proximal external iliac artery peak systolic velocity of 162.1 cm/s. End-diastolic velocity of 16.3 cm/s. Proximal common femoral artery peak systolic velocity of 165.6 cm/s. End-diastolic velocity of 19.2 cm/s. Proximal DFA the systolic velocity of 61.1 cm/s. End-diastolic velocity of 0.0 cm/s. Mid SFA Peak systolic velocity of 209.7 cm/s. End-diastolic velocity of 28.6 cm/s. Distal SFA peak systolic velocity 257.3 cm/s. End-diastolic velocity 28.2 cm/s. Popliteal artery peak systolic velocity 131.7 cm/s. End-diastolic velocity 28.6 cm/s. Proximal RORO peak systolic velocity of 123.3 cm/s. End-diastolic velocity of 31.3 cm/s. Mid RORO Peak systolic 123.3 cm/s. End-diastolic velocity of 31.3 cm/s. Distal RORO peak systolic velocity of 181.8 cm/s. End-diastolic velocity 39.7 cm/s. Proximal [employer] peak systolic 159.9 cm/s. End-diastolic 35.9 cm/s. Mid [employer] peak systolic velocity 138.4 cm/s. End-diastolic 34.0 cm/s. Distal [employer] peak systolic velocity 57.7 cm/s. End diastolic 14.3 cm/s. A 1.5 x 0.8 x 0.9 cm heterogeneous calcified plaque is seen at the left iliac artery. There is severe stenosis at this region. 3.2 x 2.5 x 2.0 cm left popliteal fossa Martin's cyst is seen. Left calf and ankle subcutaneous tracking edema seen. US/US arterial duplex LE LT IMPRESSION: 1. Abnormally diminished arterial flow of the left proximal DFA and distal [employer] with velocities as above. Recommend close clinical attention. 2. A 1.5 x 0.8 x 0.9 cm heterogeneous calcified plaque is seen at the left iliac artery. There is severe stenosis at this region. 3. Tracking subcutaneous edema the left calf and ankle. 4. 3.2 x 2.5 x 2.0 cm popliteal fossa Martin's cyst is seen. Important urgent impression #1 and #2 communicated to and acknowledged by Kari Ludwig RN at 1:09 AM eastern time 09/19/2023 by phone. The verbal phone communication was made by Mari Matos. Electronically authenticated by: MARI MATOS Date: 09/19/2023 01:12
[2023-09-18 21:16] LABS: Basophils Absolute Auto 0.1 10^3/uL (0.0-0.1); Basophils Percent Auto 0.3 % (0.2-2.0); Eosinophils Percent Auto 0.1 % (0.9-7.0); Hematocrit 40.2 % (36.0-48.0); Hemoglobin 12.9 g/dL (12.0-16.0); Immature Granulocytes Abs Auto 0.22 10^3/uL (0.00-0.03); Immature Granulocytes Pct Auto 1.2 % (0.0-0.5); Lymphocytes Absolute Auto 1.5 10^3/uL (1.2-3.8); Mean Corpuscular HGB Conc 32.1 g/dL (29.9-35.2); Mean Corpuscular Hemoglobin 28.5 pg (26.7-34.0); Mean Corpuscular Volume 88.9 fL (81.0-99.0); Mean Platelet Volume 11.1 fL (9.5-13.5); Monocytes Absolute Auto 0.6 10^3/uL (0.3-0.8); Monocytes Percent Auto 3.5 % (1.7-12.0); Neutrophils Absolute Auto 15.8 10^3/uL (1.4-6.5); Neutrophils Percent Auto 86.9 % (43.0-75.0); Platelet Count 220 10^3/uL (150-450); Red Blood Count 4.52 10^6/uL (4.20-5.40); Red Cell Distribution Width 14.4 % (11.0-15.0); White Blood Count 18.2 10^3/uL (4.0-11.0)
--- NOTE | 2023-09-18 21:24 | PC.NURSE ---
Pt has redness, warmth and swelling to LLE spreading from foot up to knee. Pt denies injury to extremity. Pt felt feverish last night before bed. Pt has hx of PE, on .
[2023-09-18 21:31] LABS: Alanine Aminotransferase 20 U/L (14-59); Albumin Globulin Ratio 0.7; Albumin Level 3.1 g/dL (3.4-5.0); Alkaline Phosphatase 65 U/L (46-116); Anion Gap 13.1; Aspartate Amino Transferase 32 U/L (15-37); BUN Creatinine Ratio 10.8; Calcium 9.4 mg/dL (8.5-10.1); Carbon Dioxide 28.8 mmol/L (21.0-32.0); Chloride 97 mmol/L (98-107); Estimated GFR (African America 32 (>=60); Estimated GFR (Non-African Ame 27 (>=60); Globulin 4.4 g/dL; Glucose 123 mg/dL (74-106); Sodium 136 mmol/L (136-145); Total Protein 7.5 g/dL (6.4-8.2)
[2023-09-18 21:34] LABS: Lactate/Lactic Acid 1.4 mmol/L (0.4-2.0)
[2023-09-18] MEDS: CEFAZOLIN SODIUM/DEXTROSE,ISO 1 GM/50 ML IV.SOLN IV (21:35)
[2023-09-18 21:39] LABS: Potassium 2.9 mmol/L (3.5-5.1)
[2023-09-18 22:30] VITALS: PULSE 88; RESP 18; O2SAT 97
--- NOTE | 2023-09-18 22:54 | ED_ITS ---
HPI - Extremity Problem General Chief complaint: Extremity Problem, Nontraumatic Stated complaint: lower leg swelling Time Seen by Provider: 09/18/23 20:29 Source: patient and family Mode of arrival: Wheelchair Limitations: no limitations History of Present Illness HPI Narrative: Four days ago the patient developed redness and swelling to the anterior left lower leg, ankle and foot. She has chronic low back problems and therefore has decreased sensation in both legs - it did not start to become painful until today, when she also noticed some discoloration of the left 2nd toe. No systemic complaints such as fever or vomiting but today she had decreased energy. No chest pain or shortness of breath She denied being a diabetic. She does take Eliquis daily, has PVD and previously had stent placement through a vascular surgeon in [place]. PMHx includes kidney disease, HTN, PVD, chronic leg edema. Related Data Home Medications Medication Instructions Recorded Confirmed apixaban 2.5 mg tablet (Eliquis) mg 09/18/23 duloxetine 30 mg capsule,delayed mg PO 09/18/23 release duloxetine 60 mg capsule,delayed mg PO 09/18/23 release ezetimibe 10 mg tablet mg 09/18/23 fenofibrate nanocrystallized 145 mg PO 09/18/23 mg tablet furosemide 40 mg tablet mg 09/18/23 hydralazine 25 mg tablet mg 09/18/23 isosorbide mononitrate 60 mg mg PO 09/18/23 tablet,extended release 24 hr metoprolol tartrate 50 mg tablet mg 09/18/23 nifedipine 90 mg tablet,extended mg PO 09/18/23 release 24 hr pantoprazole 40 mg tablet,delayed mg PO 09/18/23 release pregabalin 75 mg capsule mg 09/18/23 tizanidine 4 mg tablet mg 09/18/23 valsartan 320 mg tablet mg 09/18/23 zolpidem 10 mg tablet mg 09/18/23 Allergies Allergy/AdvReac Type Severity Reaction Status Date / Time iodine Allergy Anaphylaxis Verified 09/18/23 20:23 PFSH [facility] Social History Smoking status: Current every day smoker Exam Narrative Exam Narrative: Nurses notes and vital signs reviewed and patient is not hypoxic. afebrile General: Well-appearing and in no apparent distress. Skin: Warm, dry, no pallor noted. Eye: Pupils are equal, round and EOMI. No scleral icterus. Ears, Nose, Mouth, and Throat: Oral mucosa is moist Cardiovascular: Regular Rate and Rhythm without murmur, gallop or rub. Respiratory: No accessory muscle use or respiratory distress. Lungs are clear to auscultation, no wheezing, rales or rhonchi Musculoskeletal: Marked swelling and edema left lower leg with circumferential erythema that extends to the distal foot and toes. The left 2nd toe has intense erythema and slight purpling. She has normal ROM at the knee and hip but less ROM in ankle and toes of the left foot due to the swelling. She has no calf or popliteal tenderness. Right LE is unremarkable. GI: Abdomen is soft, non-distended. Normal bowel sounds. No tenderness to palpation. No rebound, guarding, or rigidity noted. Neurological: A&O x4. No cranial nerve dysfunction observed. No truncal ataxia. Moves all extremities. Sensation intact. Psychiatric: Cooperative and interactive. Normal mood and affect. Constitutional Vital Signs, click to edit/add: Last Vital Signs Temp 99.3 F 09/18/23 20:17 Pulse 88 09/18/23 22:30 Resp 18 09/18/23 22:30 BP 220/90 H 09/18/23 23:15 Pulse Ox 97 09/18/23 22:30 O2 Del Method Room Air 09/18/23 20:17 Course Vital Signs Vital signs: Vital Signs Temperature 99.3 F 09/18/23 20:17 Pulse Rate 92 H 09/18/23 20:17 Respiratory Rate 18 09/18/23 20:17 Blood Pressure 193/69 H 09/18/23 20:17 Pulse Oximetry 95 09/18/23 20:17 Oxygen Delivery Method Room Air 09/18/23 20:17 Temperature 99.3 F 09/18/23 20:17 Pulse Rate 88 09/18/23 22:30 Respiratory Rate 18 09/18/23 22:30 Blood Pressure 220/90 H 09/18/23 23:15 Pulse Oximetry 97 09/18/23 22:30 Oxygen Delivery Method Room Air 09/18/23 20:17 MDM - Extremity (Nontraumatic) MDM Narrative Medical decision making narrative: Peripheral IV was established and blood drawn and sent for testing. She is ordered to receive IV antibiotics for her cellulitis of the left lower extremity . fuel technician was called in to get arterial ultrasound because of the discoloration noted in the patient's left second toe - no DVT or arterial occlusion was identified by the rad/US tech. Patient WBC 18.2k with left shift. BUN and Cr elevated but appear to be at baseline. Potassium low at 2.9 - she was given oral potassium. LFTs normal and lactate negative. She was hypertensive in the ED - did not take her evening meds. She was ordered to receive IV Vasotec and IV Labetalol. Call placed to the tele-hospitalist to discuss admission. Cristopher Hansen and I discussed the case and the patient was admitted to Dr Cantu's service - inpatient, [facility]. Lab Data Attestation: I reviewed the patient's lab results. Labs: Lab Results 09/18/23 Range/Units 21:00 WBC 18.2 H (4.0-11.0) 10^3/uL RBC 4.52 (4.20-5.40) 10^6/uL Hgb 12.9 (12.0-16.0) g/dL Hct 40.2 (36.0-48.0) % MCV 88.9 (81.0-99.0) fL MCH 28.5 (26.7-34.0) pg MCHC 32.1 (29.9-35.2) g/dL RDW 14.4 (11.0-15.0) % Plt Count 220 (150-450) 10^3/uL MPV 11.1 (9.5-13.5) fL Neut % (Auto) 86.9 H (43.0-75.0) % Lymph % (Auto) 8.0 L (20.5-60.0) % [place] % (Auto) 3.5 (1.7-12.0) % Eos % (Auto) 0.1 L (0.9-7.0) % Baso % (Auto) 0.3 (0.2-2.0) % Neut # (Auto) 15.8 H (1.4-6.5) 10^3/uL Lymph # (Auto) 1.5 (1.2-3.8) 10^3/uL [place] # (Auto) 0.6 (0.3-0.8) 10^3/uL Eos # (Auto) 0.0 (0.0-0.7) 10^3/uL Baso # (Auto) 0.1 (0.0-0.1) 10^3/uL Abs Immat Gran (auto) 0.22 H (0.00-0.03) 10^3/uL Imm/Tot Granulo (auto) 1.2 H (0.0-0.5) % Sodium 136 (136-145) mmol/L Potassium 2.9 L* (3.5-5.1) mmol/L Chloride 97 L (98-107) mmol/L Carbon Dioxide 28.8 (21.0-32.0) mmol/L Anion Gap 13.1 BUN 20.0 H (7.0-18.0) mg/dL Creatinine 1.86 H (0.55-1.02) mg/dL Est GFR ( Amer) 32 L (>=60) Est GFR (Non-Af Amer) 27 L (>=60) BUN/Creatinine Ratio 10.8 Glucose 123 H (74-106) mg/dL Lactate 1.4 (0.4-2.0) mmol/L Calcium 9.4 (8.5-10.1) mg/dL Total Bilirubin 1.0 (0.2-1.0) mg/dL AST 32 (15-37) U/L ALT 20 (14-59) U/L Alkaline Phosphatase 65 (46-116) U/L Total Protein 7.5 (6.4-8.2) g/dL Albumin 3.1 L (3.4-5.0) g/dL Globulin 4.4 g/dL Albumin/Globulin Ratio 0.7 Discharge Plan Discharge Chief Complaint: Extremity Problem, Nontraumatic Clinical Impression: Cellulitis of left lower extremity, PVD (peripheral vascular disease), Hypertension Patient Disposition: Admitted as Observation Time of Disposition Decision: 23:03 Additional Instructions: dr cantu, inpatient, [facility]
[2023-09-18] MEDS: POTASSIUM CHLORIDE 10 MEQ ER TABLET 40 MEQ PO (22:58)
[2023-09-18 23:00] VITALS: BP 220/90
[2023-09-18 23:15] VITALS: BP 220/90
[2023-09-18] MEDS: ENALAPRILAT DIHYDRATE 1.25 MG/ML VIAL IV (23:15)
[2023-09-18] MEDS: LABETALOL HCL 20 MG/4 ML SYRINGE IVP (23:16)
[2023-09-18 23:54] VITALS: BP 182/82; PULSE 78; RESP 18; TEMP 37.5; O2SAT 97
[2023-09-19] VITALS (21 sets, daily range): BP systolic 133–235; BP diastolic 60–94; PULSE 78–103; RESP 18–20; TEMP 36.8–37.6; O2SAT 90–94; BMI 33.7
--- NOTE | 2023-09-19 | XR_ITS ---
The [address] [address] Patient Name: LUPE NGUYEN MRN: [id number] date: 1950 Sex: F Assigned Patient Location: MS Current Patient Location: MS Accession/Order Number: [id number] Exam Date: 09/19/2023 12:28 Report Date: 09/19/2023 12:40 At the request of: AMIE BARKER Procedure: XR chest 1V EXAM: XR chest 1V HISTORY: leg swelling, shortness of breath COMPARISON: None TECHNIQUE: AP view of the chest was obtained with portable technique at 11:49 AM. FINDINGS: Heart and mediastinal contours are unremarkable in appearance. Calcification of the aortic knob without aneurysm suggested. Postoperative sternotomy wires are present. Linear density in the right lower lung field compatible with mild atelectatic or fibrotic change. No obvious consolidated infiltrate. No obvious pneumothorax. Mild convexity of the upper dorsal spine to the right. Degenerative change about the shoulders, mild on the right and moderate to marked on the left. XR/XR chest 1V IMPRESSION: Mild atelectatic or fibrotic change in the right lower lung field. No obvious consolidated infiltrate. Electronically authenticated by: VASHTI BUI Date: 09/19/2023 12:40
--- OUTSIDE RECORDS SUMMARY | 2023-09-19 00:02 | XMS_ITS | CCD ---
Author Name Unknown Address [address] [place] [address] Organization [facility] Care Team Providers Care Event Specialist Food Demonstrator Name Role Phone DESIRAE, HSAKA H. Unavailable Unavailable JACK VOGT Unavailable Unavailable DESIRAE, SHAKA H. Unavailable Unavailable DESIRAE, SHAKA H. Unavailable Unavailable JACK VOGT Unavailable Unavailable DESIRAE, SHAKA H. Unavailable Unavailable DESIRAE, SHAKA H. Unavailable Unavailable JACK VOGT Unavailable Unavailable THOMAS Vogt Primary Care Provider [phone] THOMAS Vogt Referring Provider Self, Referral Attending [...] Admitting Unavailable Jack Vogt Referring Unavailable Jack Votg Primary Care Unavailable DAR, ISABEL Attending Unavailable MOUKARBELSACHIN Attending Unavailable COELHO, Alfredo R Attending Unavailable COELHO, Alfredo R Attending Unavailable COELHO, Alfredo R Attending Unavailable Allergies Allergy Classification Reported Allergen(s) Allergy Type Date of Onset Reaction(s) Facility (7 sources) Iodine; Translations: [Iodine] Drug Allergy 0 Eruption of skin (disorder) [facility] (2 sources) Pneumococcal vaccine; Translations: [pneumococcal vaccine] Drug Allergy 1 Edema [facility] (3 sources) varenicline; Translations: [varenicline] Drug Allergy 1 Vomiting [facility] (2 sources) Xhvfxtd-SMO-QtX Reductase Inhibitor; Translations: [Ekebiog-TFU-TnF Reductase Inhibitor] Allergy to substance 1 Unknown Reaction [facility] (3 sources) HMG-CoA reductase inhibitor; Translations: [statins] Drug allergy Unknown (qualifier value) [facility] (3 sources) Shellfish; Translations: [shellfish] Drug allergy Unknown (qualifier value) [facility] (2 sources) black walnut pollen extract; Translations: [UASVCNC-MBS-ZUX REDUCTASE INHIBITORS] Drug Allergy 0 [facility] (1 source) varenicline Drug Allergy 0 [facility] (1 source) Pneumovax 23 Drug allergy (disorder) 0 [facility] (1 source) Contrast media; Translations: [RED DYE] Propensity to adverse reactions to drug (disorder) 2 [facility] (1 source) nickel; Translations: [NICKEL] Drug Allergy 8 [facility] (1 source) Pneumococcal vaccine; Translations: [PNEUMOCOCCAL 23-CRUZ PS VACCINE] Drug Allergy 1 [facility] (1 source) Shellfish; Translations: [SHELLFISH DERIVED] Propensity to adverse reactions to drug (disorder) 8 [facility] Medications Current Medications Medication Drug Class(es) [...] Start: 03-04-2022 nitroglyce rin 0.4 mg SubL [place] mg spray(s), SubLingual, q5min, Refills(s) 0 Start [...] disease (7 sources) Atherosclerotic heart disease of [place] coronary artery without angina pectoris; Translations: [[place] W/O ANGINA PECTORIS] Onset: 2 Chronic [...] source) Long-term current use of anticoagulant; Translations: [retirement (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] Onset: 3 Episodic [...] Da te Episodic/Chronic Other aftercare (1 source) retirement (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; Translations: [SOLE LAYER CURRNT USE ANTICOAGULANTS] Onset: 02-10-2022 Episodic Other [...] Range Facility [facility] 07-28-2023 Lab Reports [id number] Normal [facility] RAD - MRI Reporton RAD - MRI Report [id number]#[id number] Normal [facility] Reminderson 07-25-2023 Reminders - From: Pati Akins To: EU - Recalls Coelho; Sent: 09/26/2022 13:52:32 EST Show up: 05/29/2023 13:52:00 EDT Subject: Ct scan with Due Date/Time: 07/03/2023 13:52:00 EDT Reminder/Recall Pt needs scheduled for Ct scan with contrast, BUN/creatinine prior to 07/24/23 appt. PT uses [facility] From: Tsering Dean MA (EU - Recalls Coelho) To: EU - Recalls Coelho; Sent: 06/27/2023 11:43:21 EDT Show up: 07/04/2023 11:42:00 EDT Subject: RE: Ct scan with Due Date/Time: 07/11/2023 11:43:[address] order, last encounter & demographics faxed to [facility]. Will call and check on status in 1wk. Pt has f/u to review 07/24/23 Allergic to contrast dye. MRI ordered in replacement. Follow up rescheduled to September. Normal [facility] Office Visiton 07-21-2023 Follow-up visit [id number] Lauren Nguyen 1950 F Date Provider Department Center 07/21/2023 Connor-SACHIN MATTHEWS [place] Family History Problem Relation Age of Onset Coronary artery disease Mother Stroke Mother Coronary artery disease Father Ovarian cancer Sister Family Status - Relation Status Age at Mother Father Sister Level of Service:22587 [place] OFFICE/OUTPATIENT ESTABLISHED MOD MDM 30-39 MIN Normal [facility] Lab Reportson 05-29-2023 Lab Reports [id number]:12 7 Normal [facility] Documentationon 02-23-2023 Documentation [id number] Lauren Nguyen 1950 F Date Provider Department Center 02/23/2023 ISABEL CHAUDHRY CARD [place] . Family History Problem Relation Age of Onset Coronary artery disease Mother Stroke Mother Coronary artery disease Father Ovarian cancer Sister Family Status - Relation Status Age at Mother Father Sister Reason for Visit and Comments: pre op cardiac evaluation [Other] Normal [facility] MM screening mammo BI w/CADo n 02-03-2023 MM screening mammo BI w/CAD [facility] [place] [address] [place] [address] Mammography Report Signed Patient: Marleni Nguyen MR#: [id number] : 1950 Acct:[id number] Age/Sex: 72 / F ADM Date: 02/03/23 Loc: [place] Room: Type: [facility] Attending Dr: Referral Self Copies to: Jack [...] Moe Jr., D.O.02/03/2023 2:42 PM Dictation Location: [facility] Transcribed By: [facility] 02/03/231441 Dictated By: Andrew Moe Jr, DO 02/03/231440 Signed By: 02/03/231441 [facility] CBC AUTO DIFFon 01-18-2023 BASO # 0.1 103/ul Normal 0.0-0.1 [facility] Comment on above: Performed By: #### C BC #### [facility] [address] [address] [address] Aryan Petty Basophils/100 WBC (Bld) 1.4 % Normal 0.2-2.0 [facility] Comment on above: Performed By: #### C BC #### [facility] [address] [address] [address] Aryan Petty EO # 0.6 103/ul Normal 0.0-0.7 [facility] Comment on above: Performed By: #### C BC #### [facility] [address] [address] [address] Aryan Petty Eosinophils/100 WBC (Bld) 7.7 % Critically high 0.9-7.0 [facility] Comment on above: Performed By: #### C BC #### [facility] [address] [address] [address] Aryan Petty Erythrocyte distribution width (RBC) [Ratio] 16.4 % Critically high 11.0-15.0 [facility] Comment on above: Performed By: #### C BC #### [facility] [address] [address] [address] Aryan Petty Hematocrit (Bld) [Volume fraction] 40.6 % Normal 36.0-48.0 [facility] Comment on above: Performed By: #### C BC #### [facility] [address] [address] [address] Aryan Petty Hemoglobin (Bld) [Mass/Vol] 12.9 g/dL Normal 12.0-16.0 [facility] Comment on above: Performed By: #### C BC #### [facility] [address] [address] [address] Aryan Petty IG # 0.03 10e3/ul Normal 0.00-0.03 [facility] Comment on above: Performed By: #### C BC #### [facility] [address] [address] [address] Aryan Petty IG % 0.4 % Normal 0.0-0.5 [facility] Comment on above: Performed By: #### C BC #### [facility] [address] [place] [address] Dr. Aryan Petty LYMPH # 2.6 103/ul Normal 1.2-3.8 [facility] Comment on above: Performed By: #### C BC #### [facility] [address] [place] [address] Dr. Aryan Petty Lymphocytes/100 WBC (Bld) 35.5 % Normal 20.5-60.0 [facility] Comment on above: Performed By: #### C BC #### [facility] [address] [place] [address] Dr. Aryan Petty MANUAL DIFF REQ NO Normal [facility] Comment on above: Performed By: #### C BC #### [facility] [address] [place] [address] Dr. Aryan Petty MCH (RBC) [Entitic mass] 26.5 pg Critically low 26.7-34.0 [facility] Comment on above: Performed By: #### C BC #### [facility] [address] [place] [address] Dr. Aryan Petty MCHC (RBC) [Mass/Vol] 31.8 g/dL Normal 29.9-35.2 [facility] Comment on above: Performed By: #### C BC #### [facility] [address] [place] [address] Dr. Aryan Petty MCV (RBC) [Entitic vol] 83.5 fL Normal 81.0-99.0 [facility] Comment on above: Performed By: #### C BC #### [facility] [address] [place] [address] Dr. Aryan Petty MONO # 0.7 103/ul Normal 0.3-0.8 [facility] Comment on above: Performed By: #### C BC #### [facility] [address] [place] [address] Dr. Aryan Petty Monocytes/100 WBC (Bld) 9.9 % Normal 1.7-12.0 [facility] Comment on above: Performed By: #### C BC #### [facility] [address] [place] [address] Dr. Aryan Petty NEUT # 3.3 103/ul Normal 1.4-6.5 [facility] Comment on above: Performed By: #### C BC #### [facility] [address] [place] [address] Dr. Aryan Petty Neutrophils/100 WBC (Bld) 45.1 % Normal 43.0-75.0 [facility] Comment on above: Performed By: #### C BC #### [facility] [address] [place] [address] Dr. Aryan Petty Platelet mean volume (Bld) [Entitic vol] 11.0 fL Normal 9.5-13.5 [facility] Comment on above: Performed By: #### C BC #### [facility] [address] [place] [address] Dr. Aryan Petty PLT 270 103/ul Normal 150-450 [facility] Comment on above: Performed By: #### C BC #### [facility] [address] [place] [address] Dr. Aryan Petty RBC 4.86 106/ul Normal 4.20-5.40 [facility] Comment on above: Performed By: #### C BC #### [facility] [address] [place] [address] Dr. Aryan Petty WBC 7.4 103/ul Normal 4.0-11.0 [facility] Comment on above: Performed By: #### C BC #### [facility] [address] [place] [address] Dr. Aryan Petty LIPID PROFILEon 01-18-2023 CHOL-HDL RATIO NORM SEE BELOW Normal [facility] Comment on above: Result Comment: 3.3 - 4.4 LOW RISK 4.4 - 7.1 AVERAGE RISK 7.1 - 11.0 MODERATE RISK >11.0 HIGH RISK Performed By: #### C MP, LIPID #### [facility] [address] [address] [address] Aryan Petty Cholesterol [Mass/Vol] 189 mg/dL Normal <=200 [facility] Comment on above: Performed By: #### C MP, LIPID #### [facility] [address] [address] [address] Aryan Petty Cholesterol in HDL [Mass/Vol] 30 mg/dL Critically low 40-60 [facility] Comment on above: Performed By: #### C MP, LIPID #### [facility] [address] [address] [address] Aryan Petty Cholesterol in LDL [Mass/Vol] 101.6 mg/dL Normal [facility] Comment on above: Performed By: #### C MP, LIPID #### [facility] [address] [address] [address] Aryan Petty Cholesterol.total/ Cholesterol in HDL [Mass ratio] 6.3 {ratio} Normal [facility] Comment on above: Performed By: #### C MP, LIPID #### [facility] [address] [address] [address] Aryan Petty HDL NORMAL > or = 60 mg/dl - LO W CARDIOVASCULAR RISK <40 mg/dl - HIGH CARDIOVASCULAR RISK Normal [facility] Comment on above: Performed By: #### C MP, LIPID #### [facility] [address] [address] [address] Aryan Petty LDL CALC NORMAL SEE BELOW Normal [facility] Comment on above: Result Comment: <100 mg/dl OPTIMAL 100 - 129 mg/dl NEAR OR ABOVE OPTIMAL 130 - 159 mg/dl BORDERLINE HIGH 160 - 189 mg/dl HIGH >190 mg/dl VERY HIGH Performed By: #### C MP, LIPID #### [facility] [address] [address] [address] Aryan Petty Triglyceride [Mass/Vol] 287 mg/dL Critically high <=150 [facility] Comment on above: Performed By: #### C MP, LIPID #### [facility] [address] [place] [address] Dr. Aryan Petty VLDL CALC 57.4 mg/dL Normal [facility] Comment on above: Performed By: #### C MP, LIPID #### [facility] [address] [place] [address] Dr. Aryan Petty PROF 14(COMP METB)on 023 Albumin [Mass/Vol] 3.6 g/dL Normal 3.4-5.[address] [facility] Comment on above: Performed By: #### C MP, LIPID #### [facility] [address] [place] [address] Dr. Aryan Petty Albumin/Globulin [Mass ratio] 0.8 {ratio} Normal [facility] Comment on above: Performed By: #### C MP, LIPID #### [facility] [address] [place] [address] Dr. Aryan Petty ALP [Catalytic activity/Vol] 86 U/L Normal 46-116 [facility] Comment on above: Performed By: #### C MP, LIPID #### [facility] [address] [place] [address] Dr. Aryan Petty ALT [Catalytic activity/Vol] 21 U/L Normal 14-59 [facility] Comment on above: Performed By: #### C MP, LIPID #### [facility] [address] [place] [address] Dr. Aryan Petty Anion gap [Moles/Vol] 13.1 mmol/L Normal [facility] Comment on above: Performed By: #### C MP, LIPID #### [facility] [address] [place] [address] Dr. Aryan Petty AST [Catalytic activity/Vol] 27 U/L Normal 15-37 [facility] Comment on above: Performed By: #### C MP, LIPID #### [facility] [address] [place] [address] Dr. Aryan Petty Bilirubin [Mass/Vol] 0.4 mg/dL Normal 0.2-1.0 [facility] Comment on above: Performed By: #### C MP, LIPID #### [facility] [address] [place] [address] Dr. Aryan Petty Calcium [Mass/Vol] 9.4 mg/dL Normal 8.5-10.[address] [facility] Comment on above: Performed By: #### C MP, LIPID #### [facility] [address] [place] [address] Dr. Aryan Petty Chloride [Moles/Vol] 103 mmol/L Normal 98-107 [facility] Comment on above: Performed By: #### C MP, LIPID #### [facility] [address] [place] [address] Dr. Aryan Petty CO2 [Moles/Vol] 27.6 mmol/L Normal 21.0-32.[address] [facility] Comment on above: Performed By: #### C MP, LIPID #### [facility] [address] [place] [address] Dr. Aryan Petty Creatinine [Mass/Vol] 2.21 mg/dL Critically high 0.55-1.02 [facility] Comment on above: Performed By: #### C MP, LIPID #### [facility] [address] [place] [address] Dr. Aryan Petty EGFR-AF SCOTTISH 26 mL/min/1.73m2 Critically low >=60 [facility] Comment on above: Performed By: #### C MP, LIPID #### [facility] [address] [place] [address] Dr. Aryan Petty EGFR-NON AF SCOTTISH 22 mL/min/1.73m2 Critically low >=60 [facility] Comment on above: Performed By: #### C MP, LIPID #### [facility] [address] [place] [address] Dr. Aryan Petty Globulin (S) [Mass/Vol] 4.6 g/dL Normal [facility] Comment on above: Performed By: #### C MP, LIPID #### [facility] [address] [place] [address] Dr. Aryan Petty Glucose [Mass/Vol] 120 mg/dL Critically high 74-106 [facility] Comment on above: Performed By: #### C MP, LIPID #### [facility] [address] [address] [address] Aryan Petty Potassium [Moles/Vol] 4.0 mmol/L Normal 3.5-5.1 [facility] Comment on above: Performed By: #### C MP, LIPID #### [facility] [address] [address] [address] Aryan Petty Protein [Mass/Vol] 8.2 g/dL Normal 6.4-8.[address] [facility] Comment on above: Performed By: #### C MP, LIPID #### [facility] [address] [place] [address] Dr. Aryan Petty Sodium [Moles/Vol] 140 mmol/L Normal 136-[address] [facility] Comment on above: Performed By: #### C MP, LIPID #### [facility] [address] [place] [address] Dr. Aryan Petty Urea nitrogen [Mass/Vol] 29.0 mg/dL Critically high 7.0-18.0 [facility] Comment on above: Performed By: #### C MP, LIPID #### [facility] [address] [place] [address] Dr. Aryan Petty Urea nitrogen/Creatinin e [Mass ratio] 13.1 mg/mg Normal [facility] Comment on above: Performed By: #### C MP, LIPID #### [facility] [address] [place] [address] Dr. Aryan Petty US CAROTID ART BILon [...] by: TONYA GARCIA Date: 2023-01-10 15:26 Normal [facility] Office Visiton 01-04-2023 Follow-up visit [id number] Lauren Nguyen 1950 F Date Provider Department Center 01/04/2023 Ewa-DAR, ISABEL [facility] Family History Problem Relation Age of Onset Coronary artery disease Mother Stroke Mother Coronary artery disease Father Ovarian cancer Sister Family Status - Relation Status Age at Mother Father Sister Level of Service:41255 AR OFFICE/OUTPATIENT ESTABLISHED MOD MDM 30-39 MIN Reason for Visit and Comments: Follow-up [366835] - 6 month f/u Edema [8219131696] Shortness of Breath [984095] - W/ exertion Normal [facility] Ambulatory Visit Summaryon 0 09-26-2022 Ambulatory Visit Summary MARLENI NGUYEN :1950 Visit Date:09/26/2022 Ambulatory Visit Instructions Your Diagnosis Kidney lesion 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 Tests Performed Urnls Dip Stick Auto w/o Microscopy POC [address]71 CT Abdomen/Pelvis w/ Contrast -- Results Pending [...] mg Tab) nitroglycerin (nitroglycerin 0.4 mg SubL [place]) pantoprazole (Pantoprazole [address] Tab) pregabalin [...] BEAULIEU, Alfredo Moya Where: [facility] Patient Educationon 09-26-19 23 Patient Education Obstetrics [...] these instructions at home: Medicines ? Take cyyc-evh-rndxfpv and prescription medicines only as told by [...] 02/20/2009 Document Revised: 08/22/2019 Document Reviewed: 03/14/2019 [place] Patient Education ? 2019 [employer]. Tristan [facility] Urology Office/Clinic Noteon 09-26-2022 Urology Office/Clinic Note Chief Complaint 6m MRI HPI Staff 6m w/MRI Abd due to Kidney Lesion. MRI abd done 08/29/22 @ [facility]. Denies flank pain. States she still has [...] Pt understands and acknowledges. 2. 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 Follow-up With When Contact Information RONALD BEAULIEU, Alfredo Moya, URL In 10 months [facility] [address], [place] [address]- [phone] Additional Instructions: CT AP w/ contrast Patient Education Urinary Tract Infection, Adult, Irzg-gt-Nuoj I, Mayte Vogt, personally scribed for Dr. Coelho on 09/26/2022 13:45:52. . Documentation recorded by the scribeMayte, accurately reflects the services(s) I performed and [...] tablet, extended release nitroglycerin 0.4 mg SubL [place], SubLingual, q5min Pantoprazole [address] Tab [...] virus vaccine, inactivated 07/04/2022 Recorded SARS-CoV-2 (COVID-19) [id number] 07/04/2022 Recorded influenza virus vaccine, inactivated 06/24/2021 [...] Protein Urine Dipstick: Trace (09/26/22 12:56:00) Specific [place] Urine Di (more content not included)... Normal [facility] Comment on above: Result Comment: Elec [...] by: TONYA GARCIA Date: 2022-09-07 16:41 Normal [facility] RAD - MRI Reporton RAD - MRI Report [id number]:12 7 Normal [facility] Lab Reportson 09-02-2022 Lab Reports [id number]:12 7 Normal [facility] MRI ABDOMEN WO W CONon 09-01 [...] by: RYLAN HOPKINS Date: 2022-09-01 12:43 Normal [facility] CREATININEon 08-29-2022 Creatinine [Mass/Vol] 2.23 mg/dL Critically high 0.55-1.02 [facility] Comment on above: Performed By: #### C JUDAH ####[facility] [address] [id number][address] Aryan Petty EGFR-AF SCOTTISH 26 mL/min/1.73m2 Critically low >=60 [facility] Comment on above: Performed By: #### C JUDAH ####[facility] [address] [address]Dr. Aryan Petty EGFR-NON AF SCOTTISH 22 mL/min/1.73m2 Critically low >=60 [facility] Comment on above: Performed By: #### C JUDAH ####[facility] [address] [id number][address] Aryan Jovanny Physician Orderon 08-08-2022 Physician Order [id number]:12 7 Normal [facility] ECHOCARDIO M/2D COMPLETEon 0 03-16-2022 ECHOCARDIO M/2D COMPLETE Patient: MARLENI NGUYEN Exam Date: 03/16/2022 : 1950 Gender:F Ordering : JOHN EPPERSON Admission #: [id number] Family : DR JACK VOGT M.D. Order #: [id number] CLICK HERE TO VIEW EXAM ECHOCARDIOGRAM REPORT [...] Matthews M.D. on 03/16/2022 at 16:36 Normal [facility] BNPon 02-22-2022 Natriuretic peptide B (Bld) [Mass/Vol] 553.0 pg/mL Normal <=900.0 [facility] Comment on above: Performed By: #### B CLINICAL SOCIAL WORKER, BMP ####[facility] [address] [address]DrGenet Petty PROF CHEM 8 (BAS METB)on Anion gap [Moles/Vol] 14.9 mmol/L Normal [facility] Comment on above: Performed By: #### B CLINICAL SOCIAL WORKER, BMP ####[facility] [address] [id number] Petty Calcium [Mass/Vol] 9.1 mg/dL Normal 8.5-10.[address] [facility] Comment on above: Performed By: #### B CLINICAL SOCIAL WORKER, BMP ####[facility] [address] [address]Dr. Aryan Petty Chloride [Moles/Vol] 102 mmol/L Normal 98-107 [facility] Comment on above: Performed By: #### B CLINICAL SOCIAL WORKER, BMP ####[facility] [address] [place], [place] [address]Dr. Aryan Petty CO2 [Moles/Vol] 27.7 mmol/L Normal 21.0-32.[address] [facility] Comment on above: Performed By: #### B CLINICAL SOCIAL WORKER, BMP ####[facility] [address] [place], [place] [address]Dr. Aryan Petty Creatinine [Mass/Vol] 1.80 mg/dL Critically high 0.55-1.02 [facility] Comment on above: Performed By: #### B CLINICAL SOCIAL WORKER, BMP ####[facility] [address] [place], [place] [address]Dr. Aryan Jovanny EGFR-AF SCOTTISH 34 mL/min/1.73m2 Critically low >=60 [facility] Comment on above: Performed By: #### B CLINICAL SOCIAL WORKER, BMP ####[facility] [address] [place], [place] [address]Dr. Aryan Petty EGFR-NON AF SCOTTISH 28 mL/min/1.73m2 Critically low >=60 [facility] Comment on above: Performed By: #### B CLINICAL SOCIAL WORKER, BMP ####[facility] [address] [place], [place] [address]Dr. Aryan Petty Glucose [Mass/Vol] 107 mg/dL Critically high 74-106 [facility] Comment on above: Performed By: #### B CLINICAL SOCIAL WORKER, BMP ####[facility] [address] [place], [place] [address]Dr. Aryan Petty Potassium [Moles/Vol] 3.6 mmol/L Normal 3.5-5.1 [facility] Comment on above: Performed By: #### B CLINICAL SOCIAL WORKER, BMP ####[facility] [address] [place], [place] [address]Dr. Suzannetanisha Jovanny Sodium [Moles/Vol] 141 mmol/L Normal 136-[address] [facility] Comment on above: Performed By: #### B CLINICAL SOCIAL WORKER, BMP ####[facility] [address] [place], [place] [address]Jc. Aryan Petty Urea nitrogen [Mass/Vol] 33.0 mg/dL Critically high 7.0-18.0 [facility] Comment on above: Performed By: #### B CLINICAL SOCIAL WORKER, BMP ####[facility] [address] [place], [place] [address]Jc. Aryan Petty Urea nitrogen/Creatinin e [Mass ratio] 18.3 mg/mg Normal [facility] Comment on above: Performed By: #### B CLINICAL SOCIAL WORKER, BMP ####[facility] [address] [place], [place] [address]Oc. Aryan Petty US KIDNEYSon 02-22-2022 US KIDNEYS [...] by: HENRY PARKER Date: 2022-02-22 17:17 Normal [facility] VC VENOUS REFLUX TEJ LMTon 0 02-16-2022 VC VENOUS REFLUX TEJ LMT Patient: MARLENI NGUYEN Exam Date: 02/16/2022 : 1950 Gender:F Ordering : JOHN EPPERSON Admission #: [id number] Family : Order #: [id number] CLICK HERE TO VIEW EXAM RADIOLOGY REPORT [...] proximal SSV. Flow: Mild deep venous reflux. Nib Adjuster: Dist/med calf 3.3 mm with 0.3s reflux. [...] Normal. Flow: Mild deep venous reflux noted. Nib Adjuster: Mid/medial calf 3.1mm, 2.9s. Dist/med calf 3.1mm, [...] MD on 02/16/2022 at 11:49 Normal [facility] US CAROTID ART BILon 05-20-2 022 US [...] by: TONYA GARCIA Date: 2022-02-04 17:45 Normal [facility] US WALTER DOP LEG BILon 2 022 [...] JERRICA HOLDEN Date: 2022-02-04 16:34 Normal [facility] BNPon 01-31-2022 Natriuretic peptide B (Bld) [Mass/Vol] 620.0 pg/mL Normal <=900.0 [facility] Comment on above: Performed By: #### B CLINICAL SOCIAL WORKER, BMP, LIPID ####[facility] [address] [place] [id number]. Aryan Petty LIPID PROFILEon 01-31-2022 CHOL-HDL RATIO NORM SEE BELOW Normal [facility] Comment on above: Result Comment: 3.3 - 4.4 LOW RISK 4.4 - 7.1 AVERAGE RISK 7.1 - 11.0 MODERATE RISK >11.0 HIGH RISK Performed By: #### B CLINICAL SOCIAL WORKER, BMP, LIPID ####[facility] [address] [place], [place] [address]Bt. Aryan Petty Cholesterol [Mass/Vol] 148 mg/dL Normal <=200 [facility] Comment on above: Performed By: #### B CLINICAL SOCIAL WORKER, BMP, LIPID ####[facility] [address] [place], [place] [address]Ei. Aryan Petty Cholesterol in HDL [Mass/Vol] 25 mg/dL Critically low 40-60 [facility] Comment on above: Performed By: #### B CLINICAL SOCIAL WORKER, BMP, LIPID ####[facility] [address] [place] [address]Dr. Aryan Petty Cholesterol in LDL [Mass/Vol] 80.8 mg/dL Normal [facility] Comment on above: Performed By: #### B CLINICAL SOCIAL WORKER, BMP, LIPID ####[facility] [address] [place] [address]Dr. Aryan Petty Cholesterol.total/ Cholesterol in HDL [Mass ratio] 5.9 {ratio} Normal [facility] Comment on above: Performed By: #### B CLINICAL SOCIAL WORKER, BMP, LIPID ####[facility] [address] [place] [address]Dr. Aryan Petty HDL NORMAL > or = 60 mg/dl - LO W CARDIOVASCULAR RISK <40 mg/dl - HIGH CARDIOVASCULAR RISK Normal [facility] Comment on above: Performed By: #### B CLINICAL SOCIAL WORKER, BMP, LIPID ####[facility] [address] [place] [address]Dr. Aryan Petty LDL CALC NORMAL SEE BELOW Normal [facility] Comment on above: Result Comment: <100 mg/dl OPTIMAL 100 - 129 mg/dl NEAR OR ABOVE OPTIMAL 130 - 159 mg/dl BORDERLINE HIGH 160 - 189 mg/dl HIGH >190 mg/dl VERY HIGH Performed By: #### B CLINICAL SOCIAL WORKER, BMP, LIPID ####[facility] [address] [place] [address]Dr. Aryan Petty Triglyceride [Mass/Vol] 211 mg/dL Critically high <=150 [facility] Comment on above: Performed By: #### B CLINICAL SOCIAL WORKER, BMP, LIPID ####[facility] [address] [place] [id number]. Aryan Petty VLDL CALC 42.2 mg/dL Normal [facility] Comment on above: Performed By: #### B CLINICAL SOCIAL WORKER, BMP, LIPID ####[facility] [address] [place] [address]Dr. Aryan Petty PROF CHEM 8 (BAS METB)on Anion gap [Moles/Vol] 14.7 mmol/L Normal [facility] Comment on above: Performed By: #### B CLINICAL SOCIAL WORKER, BMP, LIPID ####[facility] [address] [place] [address]Dr. Aryan Petty Calcium [Mass/Vol] 8.7 mg/dL Normal 8.5-10.[address] [facility] Comment on above: Performed By: #### B CLINICAL SOCIAL WORKER, BMP, LIPID ####[facility] [address] [place] [address]Dr. Aryan Petty Chloride [Moles/Vol] 104 mmol/L Normal 98-107 [facility] Comment on above: Performed By: #### B CLINICAL SOCIAL WORKER, BMP, LIPID ####[facility] [address] [place] [address]Dr. Aryan Petty CO2 [Moles/Vol] 26.0 mmol/L Normal 21.0-32.[address] [facility] Comment on above: Performed By: #### B CLINICAL SOCIAL WORKER, BMP, LIPID ####[facility] [address] [place], [place] [address]Dr. Aryan Petty Creatinine [Mass/Vol] 2.91 mg/dL Critically high 0.55-1.02 [facility] Comment on above: Performed By: #### B CLINICAL SOCIAL WORKER, BMP, LIPID ####[facility] [address] [place], [place] [address]Dr. Aryan Petty EGFR-AF SCOTTISH 19 mL/min/1.73m2 Critically low >=60 [facility] Comment on above: Performed By: #### B CLINICAL SOCIAL WORKER, BMP, LIPID ####[facility] [address] [place] [address]Dr. Aryan Petty EGFR-NON AF SCOTTISH 16 mL/min/1.73m2 Critically low >=60 [facility] Comment on above: Performed By: #### B CLINICAL SOCIAL WORKER, BMP, LIPID ####[facility] [address] [place] [address]Dr. Aryan Petty Glucose [Mass/Vol] 110 mg/dL Critically high 74-106 [facility] Comment on above: Performed By: #### B CLINICAL SOCIAL WORKER, BMP, LIPID ####[facility] [address] [place] [address]Dr. Aryan Petty Potassium [Moles/Vol] 3.7 mmol/L Normal 3.5-5.1 [facility] Comment on above: Performed By: #### B CLINICAL SOCIAL WORKER, BMP, LIPID ####[facility] [address] [place], [place] [address]Kc. Aryan Petty Sodium [Moles/Vol] 141 mmol/L Normal 136-[address] [facility] Comment on above: Performed By: #### B CLINICAL SOCIAL WORKER, BMP, LIPID ####[facility] [address] [place], [place] [address]Kt. Aryan Petty Urea nitrogen [Mass/Vol] 51.0 mg/dL Critically high 7.0-18.0 [facility] Comment on above: Performed By: #### B CLINICAL SOCIAL WORKER, BMP, LIPID ####[facility] [address] [place], [place] [address]Uf. Aryan Petty Urea nitrogen/Creatinin e [Mass ratio] 17.5 mg/mg Normal [facility] Comment on above: Performed By: #### B CLINICAL SOCIAL WORKER, BMP, LIPID ####[facility] [address] [place], [place] [address]Vn. Aryan Petty Basic Metabolic Panel Reflex Mgon 06-07-2018 Anion gap 3 molar conc 10 mmol/L Normal 7-13 [facility] Calcium mass conc 8.2 mg/dL Low 8.6-10.2 [facility] Chloride molar conc 109 mmol/L Critically high 98-107 [facility] CO2 molar conc 25 mmol/L Normal 22-29 [facility] Creatinine mass conc 1.21 mg/dL Critically high 0.50-0.90 [facility] GFR/1.73 sq M predicted among blacks MDRD vol rate/area (S/P/Bld) 53.4 mL/min/{1.73_m2} Low >60 [facility] Comment on above: Result Comment: >60 mL/min/1.73m2 EGFR, calc. for ages 18 and older using theMDRD formula (not corrected for weight), is valid for stablerenal function. GFR/1.73 sq M.predicted MDRD vol rate/area 44.2 mL/min/{1.73_m2} Low >60 [facility] Comment on above: Result Comment: >60 mL/min/1.73m2 EGFR, calc. for ages 18 and older using theMDRD formula (not corrected for weight), is valid for stablerenal function. Glucose mass conc 111 mg/dL Critically high 74-109 [facility] Potassium reflex Mg 3.6 mEq/L Normal 3.5-5.1 [facility] Sodium molar conc 144 mmol/L Normal 132-144 [facility] Urea nitrogen mass conc 26 mg/dL Critically high 8-23 [facility] CBC With Platelet and Differ entialon 06-07-2018 Basophils Auto #/vol (Bld) 0.1 10*3/uL Normal 0.0-0.2 [facility] Basophils/100 WBC Auto (Bld) 0.7 % Normal [facility] Eosinophils Auto #/vol (Bld) 0.3 10*3/uL Normal 0.0-0.7 [facility] Eosinophils/100 WBC Auto (Bld) 3.1 % Normal [facility] Erythrocyte distribution width Auto Ratio (RBC) 13.4 % Normal 11.5-14.5 [facility] Hematocrit Auto Volume Fraction (Bld) 34.6 % Low 37.0-47.0 [facility] Hemoglobin mass conc (Bld) 12.0 g/dL Normal 12.0-16.0 [facility] Lymphocytes Auto #/vol (Bld) 2.3 10*3/uL Normal 1.0-4.8 [facility] Lymphocytes/100 WBC Auto (Bld) 24.2 % Normal [facility] MCH Auto Entitic mass (RBC) 33.0 pg Critically high 27.0-31.3 [facility] MCHC Auto mass conc (RBC) 34.6 % Normal 33.0-37.0 [facility] MCV Auto Entitic volume (RBC) 95.4 fL Normal 82.0-100.0 [facility] Monocytes Auto #/vol (Bld) 0.9 10*3/uL Critically high 0.2-0.8 [facility] Monocytes/100 WBC Auto (Bld) 9.8 % Normal [facility] Neutrophils Auto #/vol (Bld) 5.9 10*3/uL Normal 1.4-6.5 [facility] Neutrophils/100 WBC Auto (Bld) 62.2 % Normal [facility] Platelets Auto #/vol (Bld) 139 10*3/uL Normal 130-400 [facility] RBC Auto #/vol (Bld) 3.62 10*6/uL Low 4.20-5.40 [facility] WBC Auto #/vol (Bld) 9.5 10*3/uL Normal 4.8-10.8 [facility] Basic Metabolic Panelon 05-19 Anion gap 3 molar conc 11 mmol/L Normal 7-13 [facility] Calcium mass conc 8.3 mg/dL Low 8.6-10.2 [facility] Chloride molar conc 104 mmol/L Normal 98-107 [facility] CO2 molar conc 26 mmol/L Normal 22-29 [facility] Creatinine mass conc 1.90 mg/dL Critically high 0.50-0.90 [facility] GFR/1.73 sq M predicted among blacks MDRD vol rate/area (S/P/Bld) 31.8 mL/min/{1.73_m2} Low >60 [facility] Comment on above: Result Comment: >60 mL/min/1.73m2 EGFR, calc. for ages 18 and older using theMDRD formula (not corrected for weight), is valid for stablerenal function. GFR/1.73 sq M.predicted MDRD vol rate/area 26.2 mL/min/{1.73_m2} Low >60 [facility] Comment on above: Result Comment: >60 mL/min/1.73m2 EGFR, calc. for ages 18 and older using theMDRD formula (not corrected for weight), is valid for stablerenal function. Glucose mass conc 149 mg/dL Critically high 74-109 [facility] Potassium molar conc 4.1 mmol/L Normal 3.5-5.1 [facility] Sodium molar conc 141 mmol/L Normal 132-144 [facility] Urea nitrogen mass conc 25 mg/dL Critically high 8-23 [facility] CBC With Platelet and Differ entialon 06-06-2018 Basophils Auto #/vol (Bld) 0.0 10*3/uL Normal 0.0-0.2 [facility] Basophils/100 WBC Auto (Bld) 0.1 % Normal [facility] Eosinophils Auto #/vol (Bld) 0.0 10*3/uL Normal 0.0-0.7 [facility] Eosinophils/100 WBC Auto (Bld) 0.0 % Normal [facility] Erythrocyte distribution width Auto Ratio (RBC) 13.5 % Normal 11.5-14.5 [facility] Hematocrit Auto Volume Fraction (Bld) 35.0 % Low 37.0-47.0 [facility] Hemoglobin mass conc (Bld) 12.0 g/dL Normal 12.0-16.0 [facility] Lymphocytes Auto #/vol (Bld) 1.0 10*3/uL Normal 1.0-4.8 [facility] Lymphocytes/100 WBC Auto (Bld) 8.2 % Normal [facility] MCH Auto Entitic mass (RBC) 32.8 pg Critically high 27.0-31.3 [facility] MCHC Auto mass conc (RBC) 34.4 % Normal 33.0-37.0 [facility] MCV Auto Entitic volume (RBC) 95.3 fL Normal 82.0-100.0 [facility] Monocytes Auto #/vol (Bld) 1.0 10*3/uL Critically high 0.2-0.8 [facility] Monocytes/100 WBC Auto (Bld) 8.0 % Normal [facility] Neutrophils Auto #/vol (Bld) 10.1 10*3/uL Critically high 1.4-6.5 [facility] Neutrophils/100 WBC Auto (Bld) 83.7 % Normal [facility] Platelets Auto #/vol (Bld) 146 10*3/uL Normal 130-400 [facility] RBC Auto #/vol (Bld) 3.67 10*6/uL Low 4.20-5.40 [facility] WBC Auto #/vol (Bld) 12.1 10*3/uL Critically high 4.8-10.8 [facility] XR CHEST (2 VW)on 06-06-2018 XR CHEST [...] Dominguezigned by:Joss Casas MD06/06/18Final result Normal [facility] Basic Metabolic Panel Reflex Mgon 06-05-2018 Anion gap 3 molar conc 11 mmol/L Normal 7-13 [facility] Calcium mass conc 8.9 mg/dL Normal 8.6-10.2 [facility] Chloride molar conc 105 mmol/L Normal 98-107 [facility] CO2 molar conc 25 mmol/L Normal 22-29 [facility] Creatinine mass conc 0.86 mg/dL Normal 0.50-0.90 [facility] GFR/1.73 sq M predicted among blacks MDRD vol rate/area (S/P/Bld) mL/min/{1.73_m2} Normal >60 [facility] Comment on above: Result Comment: >60 mL/min/1.73m2 EGFR, calc. for ages 18 and older using theMDRD formula (not corrected for weight), is valid for stablerenal function. GFR/1.73 sq M.predicted MDRD vol rate/area mL/min/{1.73_m2} Normal >60 [facility] Comment on above: Result Comment: >60 mL/min/1.73m2 EGFR, calc. for ages 18 and older using theMDRD formula (not corrected for weight), is valid for stablerenal function. Glucose mass conc 135 mg/dL Critically high 74-109 [facility] Potassium reflex Mg 4.0 mEq/L Normal 3.5-5.1 [facility] Sodium molar conc 141 mmol/L Normal 132-144 [facility] Urea nitrogen mass conc 13 mg/dL Normal 8-23 [facility] CBC With Platelet and Differ entialon 06-05-2018 RBC morphology finding Nom (Bld) Normal Normal [facility] Platelet Slide Review Normal Normal [facility] Basophils Auto #/vol (Bld) 0.1 10*3/uL Normal 0.0-0.2 [facility] Basophils/100 WBC Auto (Bld) 1.0 % Normal [facility] Eosinophils Auto #/vol (Bld) 0.0 10*3/uL Normal 0.0-0.7 [facility] Eosinophils/100 WBC Auto (Bld) 0.4 % Normal [facility] Erythrocyte distribution width Auto Ratio (RBC) 13.5 % Normal 11.5-14.5 [facility] Hematocrit Auto Volume Fraction (Bld) 40.5 % Normal 37.0-47.0 [facility] Hemoglobin mass conc (Bld) 13.7 g/dL Normal 12.0-16.0 [facility] Lymphocytes Auto #/vol (Bld) 2.0 10*3/uL Normal 1.0-4.8 [facility] Lymphocytes/100 WBC Auto (Bld) 15.5 % Normal [facility] MCH Auto Entitic mass (RBC) 32.4 pg Critically high 27.0-31.3 [facility] MCHC Auto mass conc (RBC) 33.9 % Normal 33.0-37.0 [facility] MCV Auto Entitic volume (RBC) 95.6 fL Normal 82.0-100.0 [facility] Monocytes Auto #/vol (Bld) 1.3 10*3/uL Critically high 0.2-0.8 [facility] Monocytes/100 WBC Auto (Bld) 10.1 % Normal [facility] Neutrophils Auto #/vol (Bld) 9.4 10*3/uL Critically high 1.4-6.5 [facility] Neutrophils/100 WBC Auto (Bld) 73.0 % Normal [facility] Platelets Auto #/vol (Bld) 168 10*3/uL Normal 130-400 [facility] RBC Auto #/vol (Bld) 4.24 10*6/uL Normal 4.20-5.40 [facility] WBC Auto #/vol (Bld) 12.9 10*3/uL Critically high 4.8-10.8 [facility] POCT Glucoseon 06-05-2018 Glucose mass conc 132 mg/dL Critically high 60-115 [facility] XR LUMBAR SPINE (2-3 VIEWS)o n 06-05-2018 [...] Sotoigned by:Tanvir Power MD06/05/18inal result Normal [facility] Basic Metabolic Panel Reflex Mgon 06-04-2018 Anion gap 3 molar conc 13 mmol/L Normal 7-13 [facility] Calcium mass conc 9.1 mg/dL Normal 8.6-10.2 [facility] Chloride molar conc 103 mmol/L Normal 98-107 [facility] CO2 molar conc 23 mmol/L Normal 22-29 [facility] Creatinine mass conc 1.08 mg/dL Critically high 0.50-0.90 [facility] GFR/1.73 sq M predicted among blacks MDRD vol rate/area (S/P/Bld) mL/min/{1.73_m2} Normal >60 [facility] Comment on above: Result Comment: >60 mL/min/1.73m2 EGFR, calc. for ages 18 and older using theMDRD formula (not corrected for weight), is valid for stablerenal function. GFR/1.73 sq M.predicted MDRD vol rate/area 50.4 mL/min/{1.73_m2} Low >60 [facility] Comment on above: Result Comment: >60 mL/min/1.73m2 EGFR, calc. for ages 18 and older using theMDRD formula (not corrected for weight), is valid for stablerenal function. Glucose mass conc 164 mg/dL Critically high 74-109 [facility] Potassium reflex Mg 4.3 mEq/L Normal 3.5-5.1 [facility] Sodium molar conc 139 mmol/L Normal 132-144 [facility] Urea nitrogen mass conc 21 mg/dL Normal 8-23 [facility] CBC With Platelet No Differe ntialon 06-04-2018 Erythrocyte distribution width Auto Ratio (RBC) 13.4 % Normal 11.5-14.5 [facility] Hematocrit Auto Volume Fraction (Bld) 44.5 % Normal 37.0-47.0 [facility] Hemoglobin mass conc (Bld) 15.2 g/dL Normal 12.0-16.0 [facility] MCH Auto Entitic mass (RBC) 32.6 pg Critically high 27.0-31.3 [facility] MCHC Auto mass conc (RBC) 34.3 % Normal 33.0-37.0 [facility] MCV Auto Entitic volume (RBC) 95.1 fL Normal 82.0-100.0 [facility] Platelets Auto #/vol (Bld) 163 10*3/uL Normal 130-400 [facility] RBC Auto #/vol (Bld) 4.68 10*6/uL Normal 4.20-5.40 [facility] WBC Auto #/vol (Bld) 8.3 10*3/uL Normal 4.8-10.8 [facility] FLUORO FOR SURGICAL PROCEDUR ESon 06-04-2018 FLUORO [...] the soft tissue anterior to the spinal column.[place] bone intact.Please see procedural note for more detailed.IMPRESSION: INTRAOPERATIVE PLIF L3-L5.Interpreted by:ANDRA Dominguezigned by:Joss Casas MD06/04/18inal result Normal [facility] POCT Glucoseon 06-04-2018 Glucose mass conc 106 mg/dL Normal 60-115 [facility] POC Performed on ACCU-CHEK Normal [facility] Surgical Specimenon 06-04-20 Surgical Specimen Invalid Interpretation Code [facility] Comment on above: Result Comment: [id number] [place] [address] [facility] REPORTPatient Name: MARLENI NGUYEN Accession No: [id number] Age Sex: 1950 [facility] [id number] Collected: 06/04/2018Med Rec No: [id number] Received: 06/05/2018Attend Phys: SHAKA DESIRAE Completed: 06/07/2018Perform [...] two cassettes after a brief decalcification. ALDWA/SCDANCPT: [id number] [id number] ENGEL M.D. 06/07/2018 Electronically signed out by Page 1 of 1 Basic Metabolic Panelon Anion gap 3 molar conc 14 mmol/L Critically high 7-13 [facility] Calcium mass conc 9.7 mg/dL Normal 8.6-10.2 [facility] Chloride molar conc 100 mmol/L Normal 98-107 [facility] CO2 molar conc 25 mmol/L Normal 22-29 [facility] Creatinine mass conc 1.15 mg/dL Critically high 0.50-0.90 [facility] GFR/1.73 sq M predicted among blacks MDRD vol rate/area (S/P/Bld) 56.7 mL/min/{1.73_m2} Low >60 [facility] Comment on above: Result Comment: >60 mL/min/1.73m2 EGFR, calc. for ages 18 and older using theMDRD formula (not corrected for weight), is valid for stablerenal function. GFR/1.73 sq M.predicted MDRD vol rate/area 46.8 mL/min/{1.73_m2} Low >60 [facility] Comment on above: Result Comment: >60 mL/min/1.73m2 EGFR, calc. for ages 18 and older using theMDRD formula (not corrected for weight), is valid for stablerenal function. Glucose mass conc 107 mg/dL Normal 74-109 [facility] Potassium molar conc 3.6 mmol/L Normal 3.5-5.1 [facility] Sodium molar conc 139 mmol/L Normal 132-144 [facility] Urea nitrogen mass conc 21 mg/dL Normal 8-23 [facility] CBC With Platelet No Differe ntialon 05-23-2018 Erythrocyte distribution width Auto Ratio (RBC) 13.5 % Normal 11.5-14.5 [facility] Hematocrit Auto Volume Fraction (Bld) 44.4 % Normal 37.0-47.0 [facility] Hemoglobin mass conc (Bld) 15.5 g/dL Normal 12.0-16.0 [facility] MCH Auto Entitic mass (RBC) 33.0 pg Critically high 27.0-31.3 [facility] MCHC Auto mass conc (RBC) 34.9 % Normal 33.0-37.0 [facility] MCV Auto Entitic volume (RBC) 94.4 fL Normal 82.0-100.0 [facility] Platelets Auto #/vol (Bld) 199 10*3/uL Normal 130-400 [facility] RBC Auto #/vol (Bld) 4.71 10*6/uL Normal 4.20-5.40 [facility] WBC Auto #/vol (Bld) 7.0 10*3/uL Normal 4.8-10.8 [facility] Culture, MRSA Screenon 05-23 Culture, MRSA Screen ORDERED BY: CLIFTON STONE: Nares Nasal COLLECTED: 05/23/18 11:37ANTIBIOTICS AT SERGIO.: RECEIVED : 05/23/18 11:37Culture, MRSA Screen FINAL 05/24/18 12:57 No MRSA isolated Normal [facility] Culture, Urineon 05-23-2018 Culture, Urine OR DERED BY: CLIFTON STONE: Urine Clean Catch COLLECTED: 05/23/18 12:44ANTIBIOTICS AT SERGIO.: RECEIVED : 05/23/18 12:44Culture, Urine FINAL 05/25/18 10:55 No growth 24 hours Normal [facility] Prothrombin Timeon 8 INR Coag RelTime (PPP) 1.1 {INR} Normal [facility] Comment on above: Result Comment: Neri mmended [...] time (PPP) 11.0 s Normal 9.6-12.3 [facility] Type and Screen Capture 3 sc rn cellon 05-23-2018 Bilirubin mass conc PATIENT: WENDY ANDRADE LOC: [facility] BILL# : [id number] : 1950 SEX: FORDERED BY: CHASE Lua ORDERED : 05/23/2018 09:33 COLLECTED: 05/23/2018 11:41ORDER : [id number] RECEIVED : 05/23/2018 11:41 --------TEST NAME RESULT UNITS RANGES ABN FL STABORH Capture AB POS FAntibody 3 Cell Scrn Captu NEG F --- Normal [facility] Urinalysis, reflex to cultur winnie 05-23-2018 Urine Reflexed to Culture YES Normal [facility] Bilirubin Ql (U) Negative Normal Negative [facility] Clarity Nom (U) Clear Normal Clear [facility] Color Nom (U) Yellow Normal Straw/[place] [facility] Glucose Ql (U) Negative Normal Negative [facility] Hemoglobin Test strip Ql (U) Negative Normal Negative [facility] Ketones Ql (U) TRACE Abnormal Negative [facility] Leukocyte esterase Test strip Ql (U) TRACE Abnormal Negative [facility] Nitrite Test strip Ql (U) Negative Normal Negative [facility] pH Test strip (U) 6.0 [pH] Normal 5.0-9.0 [facility] Protein Test strip Ql (U) TRACE Abnormal Negative [facility] Specific gravity Relative Density (U) 1.010 Normal 1.005-1.03 [facility] Urobilinogen Test strip Qn (U) 0.2 {Dago'U}/dL Normal < 2.0 [facility] Urine Microscopicon 05-23-20 18 Casts LM.LPF #/area (Urine sed) 0-1 Hyaline Normal [facility] RBC Test strip #/vol (U) 0-2 Normal 0-2 [facility] Urine Amorphous 1+ Normal [facility] WBC #/vol (U) 3-5 Normal 0-5 [facility] XR SPINE ENTIRE (2-3 VIEWS)o n 05-23-2018 XR SPINE ENTIRE (2-3 VIEWS) PREOP NO DICTATION Interpreted by: Barb Wetzel MD Signed by: Barb Wetzel MD 06/08/18 Final result Normal [facility] Vital Signs Date Time Vital Sign Value Performing Clinician Suzanna matthews 09-26-2022 12:59-0500 Blood Pressure Location Alfredo COELHO [facility] 09-26-2022 12:59-0500 Diastolic blood pressure 76 mm[Hg] Alfredo COELHO [facility] 09-26-2022 12:59-0500 Heart rate 78 /min Alfredo COELHO [facility] 09-26-2022 12:59-0500 Respiratory rate 16 /min Alfredo COELHO [facility] 09-26-2022 12:59-0500 Systolic blood pressure 124 mm[Hg] Alfredo COELHO [facility] 03-04-2022 10:16-0400 Blood Pressure Location Alfredo COELHO [facility] 03-04-2022 10:16-0400 Diastolic blood pressure 70 mm[Hg] Alfredo COELHO [facility] 03-04-2022 10:16-0400 Heart rate 56 /min Alfredo COELHO [facility] 03-04-2022 10:16-0400 Respiratory rate 16 /min Alfredo COELHO [facility] 03-04-2022 10:16-0400 Systolic blood pressure 129 mm[Hg] Alfredo COEL[facility] Encounters Encounter Date Encounter Type Care Provider Facility Start: 10-23-2023 ambulatory Alfredo [facility]ELHO Facili ty:[facility] Start: 07-24-2023 ambulatory Alfredo COELHO Facili ty:[facility] Start: 07-21-2023 End: 07-21-2023 ambulatory [facility] Start: 02-03-2023 End: 02-03-2023 ambulatory Referral Self Facility:[facility] Start: 01-18-2023 End: 01-19-2023 ambulatory ISABEL DODGE Facility:[facility] Start: 01-10-2023 End: 01-11-2023 ambulatory ISABEL DODGE Facility:[facility] Start: 01-04-2023 End: 01-04-2023 ambulatory [facility] Start: 09-26-2022 End: 09-27-2022 ambulatory Alfredo COELHO Facility:[facility] [place] Start: 09-26-2022 End: 09-26-2022 Patient encounter procedure Alfredo COELHO [facility] Start: 09-07-2022 End: 09-08-2022 ambulatory SARAY MONCADA Facility:[facility] Start: 08-29-2022 End: 08-30-2022 ambulatory ALFREDO COELHO Facility:[facility] Start: 03-16-2022 End: 03-17-2022 ambulatory JOHN EPPERSON Facility:[facility] Start: 03-04-2022 End: 03-04-2022 Patient encounter procedure Alfredo COELHO [facility] Start: 02-22-2022 End: 02-23-2022 ambulatory ALFREDO COELHO Facility:[facility] Start: 02-16-2022 End: 02-17-2022 ambulatory JOHN EPPERSON Facility:[facility] Start: 02-04-2022 End: 02-05-2022 ambulatory JOHN EPPERSON Facility:[facility] Start: 02-02-2022 End: 02-02-2022 Patient encounter procedure II Jack Vogt Work Phone: [facility] Start: 01-31-2022 End: 02-01-2022 ambulatory JOHN EPPERSON Facility:[facility] Start: 06-04-2018 End: 06-07-2018 Evaluation and management of inpatient SHAKA Dali [facility] Start: 05-23-2018 End: 05-26-2018 Patient encounter SHAKA Dali [facility] Start: 05-23-2018 End: 05-28-2018 Patient encounter SHAKA Dali [facility] Procedures Date Procedure Procedure Detail Performing [...] SHAKA DESIRAE Start: 06-06-2018 INTAKE AND OUTPUT SAHKA YO O Start: 06-06-2018 PULSE OXIMETRY, CONTINUOUS SHAKA DESIRAE Start: 06-06-2018 NURSING COMMUNICATION B O DESIRAE Start: 06-06-2018 INCENTIVE SPIROMETRY RT SHAKA DESIRAE Start: 06-05-2018 INCENTIVE SPIROMETRY RT SHAKA DESIRAE Start: 06-05-2018 PULSE OXIMETRY, CONTINUOUS SHAKA DESIRAE Start: 06-05-2018 INCENTIVE SPIROMETRY RT SHAKA DESIRAE Start: 06-05-2018 INCENTIVE SPIROMETRY RT SHKAA DESIRAE Start: 06-05-2018 PULSE OXIMETRY, CONTINUOUS SHAKA [...] SHAKA DESIRAE Start: 06-04-2018 DIET GENERAL SHAKA DSEIRAE Start: 06-04-2018 TELEMETRY MONITORING SHAKA DESIRAE Start: [...] Immunizations Immunization Date Immunization Notes Care Provider [facility] 07-04-2022 influenza virus vaccine, unspecified formulation Alfredo COELHO [facility] 07-04-2022 SARS-CoV-2 (COVID-19 ) [id number] Alfredo COELHO [facility] 06-24-2021 influenza virus vaccine, unspecified formulation Alfredo COELHO [facility] 06-24-2021 SARS-CoV-2 (COVID-19 ) mRNA BNT-162b2 vax Alfredo COELHO [facility] Comment on above: Result Comment: 2022: [id number] 11-17-2020 SARS-CoV-2 (COVID-19 ) mRNA BNT-162b2 neelam COELHO [facility] Comment on above: Result Comment: 2022: [id number] 10-27-2020 SARS-CoV-2 (COVID-19 ) mRNA BNT-162b2 brandyx Alfredo COELHO [facility] Comment on above: Result Comment: 2022: [id number] 07-08-2020 influenza virus vaccine, unspecified formulation Alfredo COELHO [facility] Payers Date Payer Category Payer Self-pay [id number] 2017 Medicare [id number] 1960 Medicare [id number] 1960 Private Health Insurance [facility] [id number] 1950 Unknown [id number] 1950 Unknown [id number] .[id number] 1949 Unknown [id number] .[id number] 1949 Unknown [id number] .[id number] 1949 Unknown [id number] .[id number] 1949 Unknown [id number] 2.16.840.1.560983.3.579.2.593 1949 Unknown [id number] .840.1.560548.3.579.2.593 1949 Unknown [id number] 2.16.840.1.281192.3.579.2.593 1949 Unknown [id number] 2.16.840.1.900156.3.579.2.593 1949 Unknown [id number] 2.16.840.1.942424.3.579.2.593 1949 Unknown [id number] 2.16.840.1.261237.3.579.2.727 1949 Unknown [id number] 2.16.840.1.672729.3.579.2.727 1950 Unknown [id number] [id number] Medicare Medicare [id number] Unknown [employer] BC/BS [id number] Unknown [id number] [id number] Social History Date Type Detail Facility Start: 03-25-2021 End: 09-26-2022 Tobacco smoking status NHIS Ex-smoker (finding) [facility] End: 10-11-2020 History of tobacco use [facility] Work Phone: Start: 1950 Sex Assigned At Female F [facility] Functional Status Date Assessment Result Facility 09-26-2022 Functional Status N/A [facility] 03-04-2022 Functional Status N/A [facility] Clinical Notes 03-04-2022 to 07-21-2023 Note Date & Type Note Facility 07-21-2023 Note [facility] Subjective Marleni Nguyen is a 72 y.o. [...] bypass graft Coronary stent patent Pulmonary embolus ([facility]/HCC) Hyperlipidemia Hypertensive disorder Osteoarthritis PVD (peripheral vascular disease) ([facility]) Allergy to statin medication Anemia due to chronic blood loss 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 Atherosclerosis of coronary artery without angina pectoris Benign essential hypertension Carotid artery occlusion without infarction Celiac artery compression syndrome ([facility]) Daytime somnolence Decreased estrogen level Degenerative lumbar spinal stenosis Depressive disorder Dissection of abdominal aorta ([facility]) Fibrocystic breast changes Fibromyalgia Gastroesophageal reflux disease Generalized abdominal pain History of thromboembolism of vein Insomnia Diabetic renal disease ([facility]) Left foot drop Lumbar radiculopathy Lumbosacral spondylosis [...] of both knees Pulmonary embolism with infarction ([facility]) Statin intolerance Type 2 diabetes mellitus with other diabetic kidney complication ([facility]) Tobacco dependence Stage 4 chronic kidney disease ([facility]) Family History Problem Relation Name Age of [...] Exam Constitutional: Appearance: (more content not included)... [facility] 02-23-2023 Note Pre op risk stratifi cation for stem cell injections to knees. RCRI= 2 points Class III risk, 10.1% 30 day risk of , [place] or cardiac arrest. From a cardiology perspective she may proceed with planned low risk procedure. Will need to hold Eliquis 2-3 days prior to procedure. Isabel Dodge CLINICAL SOCIAL WORKER Division of Cardiology, [facility]- [phone] Pager- [phone] Email- [email or web address] 01-04-2023 Note Ordered Carotid US t o assess level of stenosis- no neurological events or concerns noted. [facility] 01-04-2023 Note Lipid fairly stable with tricor and zetia Pt intolerant of statin, and PCSK9 inhibitor was not affordable [facility] 01-04-2023 Note Hypertension is well controlled 138/74 continue all medications [facility] 01-04-2023 Note stable [facility] 01-04-2023 Note Coronary artery dise ase is stable, no concerning symptoms Continue GDMT- ASA, zetia, metoprolol, tricor continue risk factor modifications- heart healthy diet, regular exercise as tolerated and continue all medications. [facility] 01-04-2023 Note Review of Systems Constitutional: Positive [...] due to her legs, knees, and back. [facility] 01-04-2023 Note [facility] PROGR ESS NOTE HPI: Marleni Nguyen is a 72 y.o. female here for routine f/U for CAD s/p CABG, States shortness of breath and leg swelling are no worse than usual. States that she went to [employer] yesterday to visit and did a lot [...] vessel. 4. Bilateral (more content not included)... [facility] 09-26-2022 Hospital Discharge instructions Patient Education 09/26/2022 13:45:35 Urinary Tract Infection, Adult, Lfvi-tx-Hdcm Urinary Tract Infection, Adult A urinary tract [...] Follow these instructions at home: Medicines Take opfa-dpp-jhywwnb and prescription medicines only as told by [...] 02/20/2009 Document Revised: 08/22/2019 Document Reviewed: 03/14/2019 [employer] Patient Education 2019 [employer] Follow Up Care 03/04/2022 10:43:44 With:RONALD BEAULIEU, Alfredo Moya, URL Address: [facility] [address], [place] [address]- [phone] When:Within 10 Month(s) Comments:CT AP w/ contrast [facility] 03-04-2022 Hospital Discharge instructions Patient Education [...] Treatment for this condition includes: Antibiotic medicine. Njlt-dsp-ughezli medicines to treat discomfort. Drinking enough water [...] Follow these instructions at home: Medicines Take ymgo-asa-ehdnkww and prescription medicines only as told by [...] 06/14/2006 Document Revised: 08/22/2019 Document Reviewed: 03/14/2019 [employer] Patient Education 2020 [employer]. Follow Up Care 06/28/2021 14:36:35 With:Alfredo COELHO MD, URL Address: [facility] [address], [place] [address]- [phone] When:09/03/2022 [facility] Evaluation + Plan note Future Appointments Appointment Date:08/29/2022 01:30:00 PM Scheduled Provider:Alfredo COELHO MD Location:[facility] Appointment Type:URO Office Visit [facility] Evaluation + Plan note Future Appointments Appointment Date:07/24/2023 01:15:00 PM Scheduled Provider:Alfredo COELHO MD Location:[facility] Appointment Type:URO Office Visit [facility] Evaluation note No assessment inform ation [facility] Work Phone: Hospital course Narrative No data available for this section [facility] Progress note No data available for this section [facility] Summary Purpose Family History No Family [...] section and content) DATE CREATED AUTHOR 07/06/2018 [facility] DATE CREATED AUTHOR AUTHOR'S ORGANIZ ATION 01/26/2023 [facility] DATE CREATED AUTHOR AUTHOR'S ORGANIZ ATION 02/28/2023 [facility] DATE CREATED AUTHOR AUTHOR'S ORGANIZ ATION 07/23/2023 [facility] DATE CREATED AUTHOR AUTHOR'S ORGANIZ ATION 07/30/2023 [facility] Care Teams (unrecognized sec tion and content) [...] BE BASED ON THE PRIMARY CLINICAL RECORDS. [employer] [facility]. provides no warranty or guarantee of the accuracy or completeness of information in this document.
[2023-09-19] MEDS: HYDRALAZINE HCL 20 MG/ML VIAL 10 MG IVP ×4 (01:35→20:23)
[2023-09-19] MEDS: ACETAMINOPHEN 325 MG TABLET 650 MG PO ×3 (01:36→18:08)
[2023-09-19 06:00] LABS: Basophils Percent Auto 0.2 % (0.2-2.0); Eosinophils Absolute Auto 0.1 10^3/uL (0.0-0.7); Eosinophils Percent Auto 0.7 % (0.9-7.0); Hemoglobin 11.6 g/dL (12.0-16.0); Immature Granulocytes Abs Auto 0.23 10^3/uL (0.00-0.03); Immature Granulocytes Pct Auto 1.4 % (0.0-0.5); Lymphocytes Absolute Auto 0.9 10^3/uL (1.2-3.8); Lymphocytes Percent Auto 5.7 % (20.5-60.0); Mean Corpuscular HGB Conc 31.4 g/dL (29.9-35.2); Mean Corpuscular Hemoglobin 28.4 pg (26.7-34.0); Mean Corpuscular Volume 90.7 fL (81.0-99.0); Mean Platelet Volume 11.6 fL (9.5-13.5); Monocytes Absolute Auto 0.7 10^3/uL (0.3-0.8); Monocytes Percent Auto 4.4 % (1.7-12.0); Neutrophils Absolute Auto 14.3 10^3/uL (1.4-6.5); Neutrophils Percent Auto 87.6 % (43.0-75.0); Platelet Count 205 10^3/uL (150-450); Red Blood Count 4.08 10^6/uL (4.20-5.40); Red Cell Distribution Width 14.5 % (11.0-15.0); White Blood Count 16.3 10^3/uL (4.0-11.0)
[2023-09-19 06:11] LABS: Erythrocyte Sedimentation Rate 80 mm/hr (<=30)
[2023-09-19 06:58] LABS: Anion Gap 13.7; BUN Creatinine Ratio 11.2; Calcium 9.1 mg/dL (8.5-10.1); Carbon Dioxide 26.5 mmol/L (21.0-32.0); Chloride 101 mmol/L (98-107); Estimated GFR (African America 32 (>=60); Estimated GFR (Non-African Ame 26 (>=60); Glucose 122 mg/dL (74-106); Potassium 3.2 mmol/L (3.5-5.1); Sodium 138 mmol/L (136-145)
[2023-09-19 07:19] LABS: C Reactive Protein 20.96 mg/dL (<=0.50)
[2023-09-19 08:47] LABS: INR 1.18; Prothrombin Time 12.4 sec (9.0-11.6)
[2023-09-19 08:53] LABS: Partial Thromboplastin Time 29.3 sec (22.3-36.2)
[2023-09-19] MEDS: PREGABALIN 75 MG CAPSULE PO ×2 (09:22→21:41)
[2023-09-19] MEDS: DULOXETINE HCL 30 MG CAPSULE.DR 90 MG PO (09:22)
[2023-09-19] MEDS: FENOFIBRATE 54 MG TABLET 135 MG PO (09:22)
[2023-09-19] MEDS: METOPROLOL TARTRATE 50 MG TABLET PO ×2 (09:23→21:41)
[2023-09-19] MEDS: EZETIMIBE 10 MG TABLET PO (09:23)
[2023-09-19] MEDS: ISOSORBIDE MONONITRATE 60 MG TAB.ER.24H PO (09:23)
[2023-09-19] MEDS: OMEPRAZOLE 40 MG CAPSULE.DR PO (09:24)
[2023-09-19] MEDS: LACTATED RINGER'S SOLUTION 1,000 ML 100 ML IV (09:24)
[2023-09-19] MEDS: HEPARIN SODIUM (PORCINE) 5,000 UNIT/ML VIAL 3300 UNIT IV (09:32)
[2023-09-19] MEDS: HEPARIN SODIUM,PORCINE/D5W 25,000 UNIT/500 ML IV.SOLN 22 UNIT IV (09:33)
[2023-09-19] MEDS: ONDANSETRON PF 4 MG/2 ML VIAL IV (09:39)
--- NOTE | 2023-09-19 09:46 | PC.NURSE ---
After oral medication was administer, patient threw up 200mls. The medication was visible within the emesis.
[2023-09-19 11:29] LABS: Glucometer 128 mg/dL (74-106)
--- NOTE | 2023-09-19 11:53 | CM.NOTE ---
Rounds made with Dr. Shay. Cardiology Consult ordered. Await their assessment for potential needs.
--- NOTE | 2023-09-19 11:59 | P.HP_ITS ---
<Statement entered by Jordon Shay MD - 09/19/23 19:14> Patient seen and examined, agree with assessment and plan below. Developed swelling and redness to left foot and lower leg. Developed pain and swelling worsened. To ER and WBC elevated along with low grade temp. Concerned of cellulitis and started antibiotics. Arterial US showed stenosis of iliac artery and history of PVD. Started antibiotics and redness and pain improved. Less swelling. Cardiology consulted who manages her PVD. Diagnosis: 1. Cellulitis left foot 2. Stenosis left iliac artery 3. PVD 4. HTN 5. Chronic HFpEF 6. CAD 7. CKD 3b 8. History of PE H&P: HPI History of Present Illness Chief complaint: lower leg swelling , LEFT LE CELLULITIS Narrative: 09/19/23 0950 This is a 72-year-old female patient with a past medical history as outlined below including peripheral arterial disease s/p bilateral femoral stent placement, depression, hypertension, and hyperlipidemia; reported to the ED yesterday evening complaining of increased swelling, pain, and redness of her lower left leg with associated purplish discoloration of her left second toe. She reports onset of symptoms 4 days ago initially focused at her second toe which was purpleish and stiff and could be bent either actively or passively. She then noted onset of severe pain to the ball of her foot just below the second toe making it difficult for her to ambulate because of the pain. 3 days ago she noted onset of increasing redness and swelling to her left lower extremity from the mid calf to her toes. As is continue to worsen she presented to the ED for further evaluation. Workup in the ED revealed mild worsening of the patient's baseline CKD 3 and hypokalemia (2.9). Leukocytosis was also noted (18.2) with low-grade temperature (99.3). Cellulitis was clinically suspected and the patient was initiated on IV antibiotic treatment. Due to her history of PAD left lower extremity arterial duplex was also obtained, and the patient was admitted to the hospitalist service for suspected cellulitis and uncontrolled hypertension and hypokalemia. The arterial duplex study was read early this morning and noted abnormally diminished arterial flow of the left proximal DFA and distal INSTRUMENT ENGINEER with velocities severely reduced. In addition a large calcified plaque was seen at the left iliac artery with severe stenosis at the region. At the time of my exam the patient was resting comfortably in bed. She reports that the cellulitic changes of her lower left leg had improved overnight after antibiotic administration. She also notes that her second toe is improved in color and is able to be bent today. Mild ischemic changes persist to the left toe but no significant cyanosis or necrosis is noted. She has been treated in the past by Dr. Meza, lean facilitator, for her peripheral arterial disease approximately 4 years ago with multiple stents placed. We have consulted cardiology for their evaluation of this ischemic limb as the severity appears to be waxing and waning and need for acute intervention is unclear. We are holding her home eliquis for now and giving a heparin gtt in case emergent intervention is indicated. She also remains npo pending cardiology evaluation. Review of Systems ROS Status of ROS 10 or more systems reviewed and unremark able except as noted in history and below [facility] Medical History (Updated 09/19/23 @ 12:28 by Jaki Nicolas NP) Chronic heart failure with preserved ejection fraction (HFpEF) ?I50.32 - Chronic diastolic (congestive) heart failure (ICD-10) Stage 3b chronic kidney disease (CKD) ?N18.32 - Chronic kidney disease, stage 3b (ICD-10) CAD (coronary artery disease) ?I25.10 - Atherosclerotic heart disease of [place] coronary artery without angina pectoris (ICD-10) History of pulmonary embolism ?Z86.711 - Personal history of pulmonary embolism (ICD-10) Hypertension ?I10 - Essential (primary) hypertension (ICD-10) PVD (peripheral vascular disease) ?I73.9 - Peripheral vascular disease, unspecified (ICD-10) High cholesterol ?E78.00 - Pure hypercholesterolemia, unspecified (ICD-10) DVT (deep venous thrombosis) ?I82.409 - Acute embolism and thrombosis of unspecified deep veins of unspecified lower extremity (ICD-10) Pulmonary air embolism ?T79.0XXA - Air embolism (traumatic), initial encounter (ICD-10) CHF (congestive heart failure) ?I50.9 - Heart failure, unspecified (ICD-10) 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 ?I70.201 - Unspecified atherosclerosis of [place] arteries of extremities, right leg (ICD-10) Stenosis of artery of left lower extremity ?I70.202 - Unspecified atherosclerosis of [place] arteries of extremities, left leg (ICD-10) Fibromyalgia ?M79.7 - Fibromyalgia (ICD-10) Osteoporosis ?M81.0 - Age-related osteoporosis without current pathological fracture (ICD- 10) Osteoarthritis ?M19.90 - Unspecified osteoarthritis, unspecified site (ICD-10) Heart attack ?I21.9 - Acute myocardial infarction, unspecified (ICD-10) Surgical History (Updated 09/19/23 @ 00:13 by Divya Mendoza) H/O colectomy ?Z90.49 - Acquired absence of other specified parts of digestive tract (ICD- 10) Family History (Updated 09/19/23 @ 00:15 by Divya Mendoza) Father Family history of myocardial infarction Family history of hypertension Mother Family history of myocardial infarction Family history of stroke Family history of hypertension Brother Family history of hypertension Family history of cancer Sister Family history of cancer Social History (Updated 09/19/23 @ 00:19 by Divya Mendoza) Smoking status: Current every day smoker Second hand tobacco smoke exposure: No Non-prescribed substance use: cannabis (any form) Previous occupational history: retired Known occupational exposures/hazards: No Highest level of school completed/degree received: some college, no degree Do you want help with school or training: No Are you now , , , , never or living with a partner: In a typical week, how many times do you talk on the telephone with family, friends, or neighbors: 3 or more times per week How often do you get together with friends or relatives: 3 or more times per week How often do you attend jehovah's witness or holiness services: never Do you belong to any clubs or organizations such as jehovah's witness groups unions, fraternal or athletic groups, or school groups: no Total score: 1 Score interpretation: A score of less than or equal to 1 indicates the most socially isolated. Little interest or pleasure in doing things: nearly every day Feeling down, depressed, or hopeless: more than half the days Feel stressed/tense/nervous/anxious/difficulty sleeping: to some extent Life stressors: unknown source of stress Due to disability, difficulty making decisions: No Do you think of yourself as: straight/heterosexual Gender Identity: female Meds Home Medications and Allergies Home Medications Medication Instructions Recorded Confirmed Type apixaban 2.5 mg tablet (Eliquis) 2.5 mg PO Q12H 09/18/23 09/19/23 History duloxetine 30 mg capsule,delayed 30 mg PO QDAY 09/18/23 09/19/23 History release duloxetine 60 mg capsule,delayed 60 mg PO QDAY 09/18/23 09/19/23 History release ezetimibe 10 mg tablet 10 mg PO QDAY 09/18/23 09/19/23 History fenofibrate nanocrystallized 145 145 mg PO QDAY 09/18/23 09/19/23 History mg tablet hydralazine 25 mg tablet 50 mg PO TID 09/18/23 09/19/23 History isosorbide mononitrate 60 mg 60 mg PO QDAY 09/18/23 09/19/23 History tablet,extended release 24 hr metoprolol tartrate 50 mg tablet 50 mg PO Q12H 09/18/23 09/19/23 History pantoprazole 40 mg tablet,delayed 40 mg PO QDAY 09/18/23 09/19/23 History release pregabalin 75 mg capsule 75 mg PO Q12H 09/18/23 09/19/23 History tizanidine 4 mg tablet 4 mg PO Q12H PRN muscle spasticity 09/18/23 09/19/23 History valsartan 320 mg tablet 320 mg PO QDAY 09/18/23 09/19/23 History zolpidem 10 mg tablet 10 mg PO .QHS PRN sleep 09/18/23 09/19/23 History Allergies Allergy/AdvReac Type Severity Reaction Status Date / Time iodine Allergy Anaphylaxis Verified 09/18/23 20:23 Exam Constitutional Vital Signs, click to edit/add: Last Vital Signs Temp 99.3 F 09/19/23 08:36 Pulse 90 09/19/23 08:36 Resp 18 09/19/23 08:36 BP 143/63 H 09/19/23 11:04 Pulse Ox 93 L 09/19/23 08:36 O2 Del Method Room Air 09/19/23 08:36 Common normals: no apparent distress, oriented x3, alert and well nourished General appearance: cooperative Orientation/consciousness: Yes awake HENIA Common normals: normocephalic, head/scalp atraumatic, hearing grossly normal bilaterally, external nose normal and moist oral mucous membranes Head and scalp: normocephalic and atraumatic Eye Common normals: PERRL, EOMs intact bilaterally, conjunctivae normal and no scleral icterus Alignment: alignment normal Eyelid: eyelids normal Neck & C-Spine Common normals: full ROM, supple and no JVD Chest Common normals: inspection of chest normal Chest: symmetrical chest wall rise Respiratory Common normals: normal respiratory effort, no retractions, no use of accessory muscles and clear to auscultation bilaterally Effort & inspection: able to speak in complete sentences Cardio Common normals: no JVD, regular rate (Borderline tachy), S1 normal heart sound, S2 normal heart sound, no gallops, no clicks and no rub; irregular rhythm (occ ectopic beats) Heart sounds: murmur (HSM 2/6) Peripheral pulses: popliteal pulses present (Diminished at 1+), posterior tibial pulses present (Diminished at 1+) and dorsalis pedis pulses present (2+) GI Common normals: Normal to inspection, nondistended, normoactive bowel sounds present, soft to palpation, non-tender, no hepatosplenomegaly, no masses and no bruits Bladder/kidney exam: bladder normal to palpation Extremity Common normals: normal capillary refill (Except to L 2nd toe) and no pedal edema General: normal exam except as noted and cyanosis (Mild cyanotic changes to L 2nd toe. No severe cyanosis or necrosis); no clubbing Left lower extremity: lower leg (Erythema, edema, calor. Improving) Neuro Santos Coma Scale: GCS not evaluated Common normals: CN's II-XII intact bilaterally, moves all extremities, no focal motor deficits and no sensory deficits noted Speech: speech normal Psych Common normals: mental status grossly normal, thought process normal, affect normal and activity/motor behavior normal Results Labs Labs: Short CBC 09/18/23 09/19/23 Range/Units 21:00 04:59 WBC 18.2 H 16.3 H (4.0-11.0) 10^3/uL Hgb 12.9 11.6 L (12.0-16.0) g/dL Hct 40.2 37.0 (36.0-48.0) % Plt Count 220 205 (150-450) 10^3/uL BMP 09/18/23 09/19/23 21:00 04:59 Sodium 136 138 Potassium 2.9 L* 3.2 L Chloride 97 L 101 Carbon Dioxide 28.8 26.5 BUN 20.0 H 21.0 H Creatinine 1.86 H 1.88 H Glucose 123 H 122 H Calcium 9.4 9.1 Liver Function 09/18/23 Range/Units 21:00 Total Bilirubin 1.0 (0.2-1.0) mg/dL AST 32 (15-37) U/L ALT 20 (14-59) U/L Alkaline Phosphatase 65 (46-116) U/L Albumin 3.1 L (3.4-5.0) g/dL Pulse Oximetry Attestation: I have reviewed the pertinent pulse oximetry results. Imaging Arterial Duplex Scan LLE: Attestation: I have reviewed the pertinent imaging results. Radiologist's impression: IMPRESSION: 1. Abnormally diminished arterial flow of the left proximal DFA and distal INSTRUMENT ENGINEER with velocities as above. Recommend close clinical attention. 2. A 1.5 x 0.8 x 0.9 cm heterogeneous calcified plaque is seen at the left iliac artery. There is severe stenosis at this region. 3. Tracking subcutaneous edema the left calf and ankle. 4. 3.2 x 2.5 x 2.0 cm popliteal fossa Martin's cyst is seen. Important urgent impression #1 and #2 communicated to and acknowledged by Kari Ludwig RN at 1:09 AM eastern time 09/19/2023 by phone. The verbal phone communication was made by Kevin Matos. Assessment and Plan Assessment and Plan (1) Cellulitis of left lower extremity: Assessment and Plan: ACUTE * Adm inpatient * Admission order entered today for 09/18/23 d/t technical EMR issue last night that did not allow orders to be placed * Plan greater than 2 midnight stay for inpatient medically necessary care. * LLE erythema, calor, edema w/ associated leukocytosis and low grade fever * Suspect underlying ischemia contributing to cellulitis - see below * Cephazolin initiated IVPB in the ED - continue for now as cellulitis is improving per pt * Low threshold to broaden ABX coverage to Unasyn pending clinical course * No clinical concern for sepsis at this time * Daily CBC, CMP (2) Stenosis of left iliac artery: Assessment and Plan: ACUTE * Hx of PAD s/p bilateral femoral stent placement per Dr Meza approx 4 hrs ago * Reported cyanotic changes of L 2nd toe w/ pain and swelling as initial symptom prior to wider LLE cellulitic changes * Cyanotic changes improving per pt w/ minimal purplish color on exam today, 2nd toe warm and sensate. Mild discoloration persists to the base of the toe on the plantar surface * No necrosis noted * L foot/toes warm w/ sensation * Arterial duplex study revealing DFA, INSTRUMENT ENGINEER and Iliac artery stenosis * LLE pulses palpable, but post tib and popliteal diminished * Limb salvage procedure possibly indicated d/t severity of stenosis on imaging * Consult cardiology - we appreciate their assistance with evaluation and management of this pt. * If ischemia is deemed critical, likely transfer to tertiary facility for intervention (limb salvage) * Heparin gtt for now pending possible intervention - hold home eliqus * NPO for now pending cardiology eval (3) Hypertensive urgency: Assessment and Plan: ACUTE * 2/2 pt unable to take her home PO meds yesterday on an empty stomach * Improved in ED w/ IVP enalapril and labetalol * Start home antihypertensive meds today (hold valsartan d/t worsening renal function) w/ sips of water * PRN IVP Hydralazine for uncontrolled htn (4) Hypokalemia: Assessment and Plan: ACUTE * K+ 2.9 on arrival to ED * Repleted w/ KCL 40 PO in ED * Improved today at 3.2 but remains below goal * Give addt'l KCL 40 IVPB now * Tele monitoring * Daily CMP (5) Stage 3b chronic kidney disease (CKD): Assessment and Plan: CHRONIC * Slightly worsened on ED labs from baseline but not yet to TOMASA threshold * Hold home Valsartan for now d/t renal toxicity * LR at 100/hr for gentle hydration w/ suspected underlying mild dehydration * CMP in AM (6) High cholesterol: Assessment and Plan: CHRONIC * Continue home Zetia and fenofibrate
--- NOTE | 2023-09-19 12:00 | NUTR.NU ---
Regular diet as tolerated. Collaborated with [facility] nurse re poc
[2023-09-19] MEDS: HYDRALAZINE HCL 25 MG TABLET 50 MG PO ×2 (14:43→21:41)
[2023-09-19] MEDS: CEFAZOLIN SODIUM/DEXTROSE,ISO 1 GM/50 ML IV.SOLN IV (14:44)
--- NOTE | 2023-09-19 14:52 | CM.NOTE ---
Important Message From Medicare discussed with pt, pt verbalizes understanding and signs paper. Original given to pt and copy placed on pt's chart.
[2023-09-19] MEDS: POTASSIUM CHLORIDE 40 MEQ in 0.9 % SODIUM CHLORIDE 250 ML 67.5 MEQ IV (15:51)
[2023-09-19 16:33] LABS: PTT Heparin Monitor 36.2 sec (48.2-68.6)
--- NOTE | 2023-09-19 16:48 | P.CACN_ITS ---
<Statement entered by Marty Cat MD - 10/18/23 12:47> This documentation has been reviewed and approved. I have reviewed and evaluated and agree with the plan as mentioned. History of Present Illness History of Present Illness Consult date: 09/19/23 Requesting physician: Jordon Shay Chief complaint: lower leg swelling , LEFT LE CELLULITIS Narrative: This is a 72-year-old female patient with a past medical history as outlined bel ow including peripheral arterial disease s/p bilateral femoral stent placement, depression, hypertension, and hyperlipidemia; reported to the ED yesterday evening complaining of increased swelling, pain, and redness of her lower left leg with associated purplish discoloration of her left second toe. she is patient of dr. kendrick who just evaulated her 07/2023 She had concern for limb ischemia given swelling in LLE She does have cellulitis and is being treated with ABX with improvement of symptoms She has strong DP pulse with full extremity control. LLE is warm to touch with pink color, mild pedal edema as well. Review of Systems ROS Cardiovascular Reports: edema and swelling of feet/ankles; Denies: chest pain, palpitations, lightheadedness or shortness of breath with exertion Respiratory Denies: shortness of breath [facility] Medical History (Updated 09/19/23 @ 12:28 by Jaki Nicolas NP) Chronic heart failure with preserved ejection fraction (HFpEF) ?I50.32 - Chronic diastolic (congestive) heart failure (ICD-10) Stage 3b chronic kidney disease (CKD) ?N18.32 - Chronic kidney disease, stage 3b (ICD-10) CAD (coronary artery disease) ?I25.10 - Atherosclerotic heart disease of [place] coronary artery without angina pectoris (ICD-10) History of pulmonary embolism ?Z86.711 - Personal history of pulmonary embolism (ICD-10) Hypertension ?I10 - Essential (primary) hypertension (ICD-10) PVD (peripheral vascular disease) ?I73.9 - Peripheral vascular disease, unspecified (ICD-10) High cholesterol ?E78.00 - Pure hypercholesterolemia, unspecified (ICD-10) DVT (deep venous thrombosis) ?I82.409 - Acute embolism and thrombosis of unspecified deep veins of unspecified lower extremity (ICD-10) Pulmonary air embolism ?T79.0XXA - Air embolism (traumatic), initial encounter (ICD-10) CHF (congestive heart failure) ?I50.9 - Heart failure, unspecified (ICD-10) 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 ?I70.201 - Unspecified atherosclerosis of [place] arteries of extremities, right leg (ICD-10) Stenosis of artery of left lower extremity ?I70.202 - Unspecified atherosclerosis of [place] arteries of extremities, left leg (ICD-10) Fibromyalgia ?M79.7 - Fibromyalgia (ICD-10) Osteoporosis ?M81.0 - Age-related osteoporosis without current pathological fracture (ICD- 10) Osteoarthritis ?M19.90 - Unspecified osteoarthritis, unspecified site (ICD-10) Heart attack ?I21.9 - Acute myocardial infarction, unspecified (ICD-10) Surgical History (Updated 09/19/23 @ 00:13 by Divya Mendoza) H/O colectomy ?Z90.49 - Acquired absence of other specified parts of digestive tract (ICD- 10) Family History (Updated 09/19/23 @ 00:15 by Divya Mendoza) Father Family history of myocardial infarction Family history of hypertension Mother Family history of myocardial infarction Family history of stroke Family history of hypertension Brother Family history of hypertension Family history of cancer Sister Family history of cancer Social History (Updated 09/19/23 @ 00:19 by Divya Mendoza) Smoking status: Current every day smoker Second hand tobacco smoke exposure: No Non-prescribed substance use: cannabis (any form) Previous occupational history: retired Known occupational exposures/hazards: No Highest level of school completed/degree received: some college, no degree Do you want help with school or training: No Are you now , , , , never or living with a partner: In a typical week, how many times do you talk on the telephone with family, friends, or neighbors: 3 or more times per week How often do you get together with friends or relatives: 3 or more times per week How often do you attend adventist or alevism services: never Do you belong to any clubs or organizations such as adventist groups unions, [employer]iki or athletic groups, or school groups: no Total score: 1 Score interpretation: A score of less than or equal to 1 indicates the most socially isolated. Little interest or pleasure in doing things: nearly every day Feeling down, depressed, or hopeless: more than half the days Feel stressed/tense/nervous/anxious/difficulty sleeping: to some extent Life stressors: unknown source of stress Due to disability, difficulty making decisions: No Do you think of yourself as: straight/heterosexual Gender Identity: female Meds Home Medications and Allergies Home Medications Medication Instructions Recorded Confirmed Type apixaban 2.5 mg tablet (Eliquis) 2.5 mg PO Q12H 09/18/23 09/19/23 History duloxetine 30 mg capsule,delayed 30 mg PO QDAY 09/18/23 09/19/23 History release duloxetine 60 mg capsule,delayed 60 mg PO QDAY 09/18/23 09/19/23 History release ezetimibe 10 mg tablet 10 mg PO QDAY 09/18/23 09/19/23 History fenofibrate nanocrystallized 145 145 mg PO QDAY 09/18/23 09/19/23 History mg tablet hydralazine 25 mg tablet 50 mg PO TID 09/18/23 09/19/23 History isosorbide mononitrate 60 mg 60 mg PO QDAY 09/18/23 09/19/23 History tablet,extended release 24 hr metoprolol tartrate 50 mg tablet 50 mg PO Q12H 09/18/23 09/19/23 History pantoprazole 40 mg tablet,delayed 40 mg PO QDAY 09/18/23 09/19/23 History release pregabalin 75 mg capsule 75 mg PO Q12H 09/18/23 09/19/23 History tizanidine 4 mg tablet 4 mg PO Q12H PRN muscle spasticity 09/18/23 09/19/23 History valsartan 320 mg tablet 320 mg PO QDAY 09/18/23 09/19/23 History zolpidem 10 mg tablet 10 mg PO .QHS PRN sleep 09/18/23 09/19/23 History Allergies Allergy/AdvReac Type Severity Reaction Status Date / Time iodine Allergy Anaphylaxis Verified 09/18/23 20:23 Exam Constitutional Vital Signs, click to edit/add: Last Vital Signs Temp 98.2 F 09/19/23 14:00 Pulse 91 H 09/19/23 16:00 Resp 18 09/19/23 14:00 BP 189/72 H 09/19/23 14:43 Pulse Ox 93 L 09/19/23 14:00 O2 Del Method Room Air 09/19/23 14:00 Respiratory Common normals: normal respiratory effort and no retractions Cardio Common normals: no JVD, regular rate and regular rhythm Extremity Common normals: full ROM Left lower extremity: lower leg Left lower leg: inspection, palpation and neurovascular exam (strong DP pulse, can palpate PT ) Results Labs and Meds Lab results: Cardiac Enzymes 09/18/23 Range/Units 21:00 AST 32 (15-37) U/L Coagulation 09/19/23 Range/Units 08:25 PT 12.4 H (9.0-11.6) sec APTT 29.3 (22.3-36.2) sec CBC 09/18/23 09/19/23 Range/Units 21:00 04:59 WBC 18.2 H 16.3 H (4.0-11.0) 10^3/uL RBC 4.52 4.08 L (4.20-5.40) 10^6/uL Hgb 12.9 11.6 L (12.0-16.0) g/dL Hct 40.2 37.0 (36.0-48.0) % Plt Count 220 205 (150-450) 10^3/uL Neut # (Auto) 15.8 H 14.3 H (1.4-6.5) 10^3/uL Lymph # (Auto) 1.5 0.9 L (1.2-3.8) 10^3/uL [place] # (Auto) 0.6 0.7 (0.3-0.8) 10^3/uL Eos # (Auto) 0.0 0.1 (0.0-0.7) 10^3/uL Baso # (Auto) 0.1 0.0 (0.0-0.1) 10^3/uL Comprehensive Metabolic Panel 09/18/23 09/19/23 Range/Units 21:00 04:59 Sodium 136 138 (136-145) mmol/L Potassium 2.9 L* 3.2 L (3.5-5.1) mmol/L Chloride 97 L 101 (98-107) mmol/L Carbon Dioxide 28.8 26.5 (21.0-32.0) mmol/L BUN 20.0 H 21.0 H (7.0-18.0) mg/dL Creatinine 1.86 H 1.88 H (0.55-1.02) mg/dL Glucose 123 H 122 H (74-106) mg/dL Calcium 9.4 9.1 (8.5-10.1) mg/dL AST 32 (15-37) U/L ALT 20 (14-59) U/L Alkaline Phosphatase 65 (46-116) U/L Total Protein 7.5 (6.4-8.2) g/dL Albumin 3.1 L (3.4-5.0) g/dL Intake and Output 09/19/23 09/19/23 09/19/23 07:59 15:59 23:59 Intake Total 120 / 170 50 / 204.733 154.733 / 204.733 Balance 120 / 170 50 / 204.733 154.733 / 204.733 Intake: Oral 120 / 120 IV 50 / 204.733 154.733 / 204.733 Cefazolin Sodium/Dextrose,Iso 1 50 / 50 gm In 50 ml @ 100 mls/hr IV Q12H ANNE MARIE Rx#:[id number] Heparin Sodium,Porcine/D5w 25, 154.733 / 154.733 000 unit In 500 ml @ 22 mls/hr IV Q23H ANNE MARIE Rx#:[id number] Other: # Voids 1 # Bowel Movements 1 Weight 81 kg 80.83 kg Patient Weight 09/20/23 07:59 Weight 80.83 kg Assessment and Plan Assessment and Plan (1) Cellulitis of left lower extremity: (2) Stenosis of left iliac artery: Assessment and Plan: For now would conitnue to treat infection as her redness and edema are improving she does have strong DP pulses bilaterally, no concern for LLE acute limb ischemia at this time despite lower extremity doppler results, clinically she appears improved compared to primary team initial exam -i will have her follow up with dr. kendrick in 2 weeks in clinic to review results , she need intervention but would not consider it acutely needed at this time given clinical exam today (3) Hypertensive urgency: (4) Hypokalemia: (5) Stage 3b chronic kidney disease (CKD): (6) High cholesterol: Plan -will have her seen in clinic in 2-[address] kendrick to discuss PAD plan, tiffany lui and jorge
[2023-09-19] MEDS: MORPHINE SULFATE 2 MG/ML SYRINGE IV (20:23)
[2023-09-19 22:13] LABS: PTT Heparin Monitor 36.4 sec (48.2-68.6)
--- NOTE | 2023-09-19 22:28 | PC.NURSE ---
Lab called with PTT results for heparin . Results were 36.4. Wrier increased by 2ml/hr per protocol. Heparin is now running at 26 ml/hr
[2023-09-20] VITALS (13 sets, daily range): BP systolic 180–209; BP diastolic 65–76; PULSE 82–105; RESP 18; O2SAT 87–94
[2023-09-20] MEDS: ZOLPIDEM TARTRATE 10 MG TABLET PO (00:24)
[2023-09-20] MEDS: HYDRALAZINE HCL 20 MG/ML VIAL 10 MG IVP (00:37)
[2023-09-20] MEDS: LACTATED RINGER'S SOLUTION 1,000 ML 100 ML IV (02:02)
[2023-09-20] MEDS: CEFAZOLIN SODIUM/DEXTROSE,ISO 1 GM/50 ML IV.SOLN IV (02:22)
[2023-09-20 04:53] LABS: Basophils Percent Auto 0.3 % (0.2-2.0); Eosinophils Absolute Auto 0.1 10^3/uL (0.0-0.7); Eosinophils Percent Auto 0.5 % (0.9-7.0); Hematocrit 34.6 % (36.0-48.0); Hemoglobin 10.8 g/dL (12.0-16.0); Immature Granulocytes Abs Auto 0.08 10^3/uL (0.00-0.03); Immature Granulocytes Pct Auto 0.6 % (0.0-0.5); Lymphocytes Absolute Auto 1.2 10^3/uL (1.2-3.8); Lymphocytes Percent Auto 8.4 % (20.5-60.0); Mean Corpuscular HGB Conc 31.2 g/dL (29.9-35.2); Mean Corpuscular Hemoglobin 28.3 pg (26.7-34.0); Mean Corpuscular Volume 90.8 fL (81.0-99.0); Mean Platelet Volume 11.6 fL (9.5-13.5); Monocytes Absolute Auto 0.8 10^3/uL (0.3-0.8); Monocytes Percent Auto 5.9 % (1.7-12.0); Neutrophils Absolute Auto 11.5 10^3/uL (1.4-6.5); Neutrophils Percent Auto 84.3 % (43.0-75.0); Platelet Count 221 10^3/uL (150-450); Red Blood Count 3.81 10^6/uL (4.20-5.40); Red Cell Distribution Width 14.7 % (11.0-15.0); White Blood Count 13.6 10^3/uL (4.0-11.0)
[2023-09-20 05:17] LABS: Partial Thromboplastin Time 32.5 sec (22.3-36.2)
[2023-09-20 05:18] LABS: Alanine Aminotransferase 14 U/L (14-59); Albumin Globulin Ratio 0.6; Albumin Level 2.2 g/dL (3.4-5.0); Alkaline Phosphatase 55 U/L (46-116); Anion Gap 9.7; Aspartate Amino Transferase 13 U/L (15-37); BUN Creatinine Ratio 12.7; Bilirubin Total 0.3 mg/dL (0.2-1.0); Calcium 8.9 mg/dL (8.5-10.1); Carbon Dioxide 27.9 mmol/L (21.0-32.0); Chloride 104 mmol/L (98-107); Estimated GFR (African America 47 (>=60); Estimated GFR (Non-African Ame 39 (>=60); Globulin 3.9 g/dL; Glucose 127 mg/dL (74-106); Potassium 3.6 mmol/L (3.5-5.1); Sodium 138 mmol/L (136-145); Total Protein 6.1 g/dL (6.4-8.2)
[2023-09-20] MEDS: HYDRALAZINE HCL 25 MG TABLET 50 MG PO (06:11)
[2023-09-20] MEDS: HEPARIN SODIUM,PORCINE/D5W 25,000 UNIT/500 ML IV.SOLN 26 UNIT IV (06:53)
[2023-09-20] MEDS: METOPROLOL TARTRATE 50 MG TABLET PO (08:43)
[2023-09-20] MEDS: EZETIMIBE 10 MG TABLET PO (08:43)
[2023-09-20] MEDS: APIXABAN 5 MG TABLET 2.5 MG PO (08:44)
[2023-09-20] MEDS: FENOFIBRATE 54 MG TABLET 135 MG PO (08:44)
[2023-09-20] MEDS: DULOXETINE HCL 30 MG CAPSULE.DR 90 MG PO (08:45)
[2023-09-20] MEDS: OMEPRAZOLE 40 MG CAPSULE.DR PO (08:46)
[2023-09-20] MEDS: ISOSORBIDE MONONITRATE 60 MG TAB.ER.24H PO (08:46)
[2023-09-20] MEDS: PREGABALIN 75 MG CAPSULE PO (08:46)
--- NOTE | 2023-09-20 10:26 | CM.NOTE ---
Rounding with Dr. Shay. Discussed improvement in redness of LLE. Pt. voices she does have CPAP at home but does not use it because she cannot tolerate it. No anticipated discharge needs and discussed possible discharge today. Pt. in agreement with this plan.
--- NOTE | 2023-09-20 10:35 | RESP.RT ---
placed on room air and Spo2 maintained at 91%
--- NOTE | 2023-09-20 13:17 | P.DS_ITS ---
<Statement entered by Jordon Shay MD - 09/20/23 20:46> Patient seen and examined, agree with assessment and plan below. Developed swelling, pain, and redness to left foot and lower leg. Started antibiotics for cellulitis. Arterial US showed stenosis of iliac artery and history of PVD. Exam showed palpable pulses in foot. Cardiology consulted who manages her PVD and did not feel this was acute limb ischemia. Redness and swellling improved with antibiotics. Discharged home in stable condition. Diagnosis: 1. Cellulitis left foot 2. Stenosis left iliac artery 3. PVD 4. HTN 5. Chronic HFpEF 6. CAD 7. CKD 3b 8. History of PE DS: Providers Provider Date of admission: 09/18/23 23:58 Primary care physician: ROMARIO VOGT Consults: 09/19/23 10:59 Consult to Cardiology Routine Reason for consultation: LLE ischemia; Moukerbell placed prev stents Has provider been notified: No Discharging clinician: Jaki Nicolas DS: Diagnosis Discharge Diagnosis (1) Cellulitis of left lower extremity: (2) Stenosis of left iliac artery: (3) Hypertensive urgency: (4) Hypokalemia: (5) Stage 3b chronic kidney disease (CKD): (6) High cholesterol: DS: Summary Hospital Course Hospital Course: The pt was admitted with acute LLE cellulitis and suspected ischemia with cyanosis of the L 2nd toe noted in the ED. IVPB Cefazolin was initiated for her cellulitis and marked improvement was noted during her stay and significant reduction in pain. An Arterial Duplex Scan of the LLE noted possible critical ischemia of the distal femoral, proximal tibial, and iliac arteries. Clinically the ischemia appeared to be resolving after admission and the pt had warm digits with palpable pulses. As she has already followed outpatient with interventional cardiology, Dr Aguilera, in the past for femoral stent place ment, we consulted cardiology for their recommendations. No emergent need for intervention was deemed necessary and the pt is to follow up as an outpatient with cardiology in the next 2 weeks for further evaluation. She also experienced HTN urgency during this stay. 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 We have increased her metoprolol succinate to 75 mg BID and defer to her cardiology team for further adjustments to her HTN meds. We clinically suspect renal artery stenosis as the etiology of her uncontrolled BPs in setting of worsening ischemia to her LLE. She recently had a Renal Artery Duplex ordered by her cardiology team and we defer to their management. She is being discharged home in stable condition with a prescription for 7 more days of Keflex (renally dosed) to complete treatment of her cellulitis. Status at Discharge Functional status at discharge: independent ambulation Overall status at discharge: patient is progressing back to baseline Time Spent with Patient Time attestation: Total time spent providing and/or coordinating discharge services: Time spent: greater than 30 minutes Specific discharge activities: Physical exam, discussion of discharge plan, questions answered. Exam Constitutional Vital Signs, click to edit/add: Last Vital Signs Temp 98.8 F 09/19/23 20:22 Pulse 90 09/20/23 09:57 Resp 18 09/20/23 08:31 BP 180/65 H 09/20/23 08:28 Pulse Ox 91 L 09/20/23 10:34 O2 Del Method Nasal Cannula 09/20/23 10:34 O2 Flow Rate 1 09/20/23 10:34 Common normals: no apparent distress, oriented x3 and alert General appearance: cooperative Orientation/consciousness: Yes awake HENMT Common normals: normocephalic and head/scalp atraumatic Eye Common normals: PERRL, EOMs intact bilaterally, conjunctivae normal and no scle ral icterus Respiratory Common normals: normal respiratory effort, no use of accessory muscles and clear to auscultation bilaterally Effort & inspection: able to speak in complete sentences and symmetric chest movement Cardio Common normals: no JVD, regular rate, regular rhythm, S1 normal heart sound, S2 normal heart sound, no murmurs and peripheral pulses 2+ throughout GI Common normals: Normal to inspection, nondistended, normoactive bowel sounds present, soft to palpation and non-tender Bladder/kidney exam: bladder normal to palpation Extremity Common normals: full ROM and normal capillary refill General: edema (LLE 2-3+, RLE trace); no clubbing and no cyanosis Left lower extremity: lower leg Left lower leg: inspection (Improved erythema, calor, tenderness. Redness confined to mid[place] mostly) Neuro Common normals: moves all extremities, no focal motor deficits and no sensory deficits noted Speech: speech normal Psych Common normals: mental status grossly normal and activity/motor behavior normal DS: Data Data Completed and Pending Labs on day of discharge: Labs from last 24 hours 09/20/23 09/19/23 09/19/23 04:17 21:45 15:35 WBC 13.6 H RBC 3.81 L Hgb 10.8 L Hct 34.6 L MCV 90.8 MCH 28.3 MCHC 31.2 RDW 14.7 Plt Count 221 MPV 11.6 Neut % (Auto) 84.3 H Lymph % (Auto) 8.4 L [place] % (Auto) 5.9 Eos % (Auto) 0.5 L Baso % (Auto) 0.3 Neut # (Auto) 11.5 H Lymph # (Auto) 1.2 [place] # (Auto) 0.8 Eos # (Auto) 0.1 Baso # (Auto) 0.0 Abs Immat Gran (auto) 0.08 H Imm/Tot Granulo (auto) 0.6 H APTT 32.5 PTT (Heparin Absorb) 36.4 L* 36.2 L* Sodium 138 Potassium 3.6 Chloride 104 Carbon Dioxide 27.9 Anion Gap 9.7 BUN 17.0 Creatinine 1.34 H Est GFR ( Amer) 47 L Est GFR (Non-Af Amer) 39 L BUN/Creatinine Ratio 12.7 Glucose 127 H Calcium 8.9 Total Bilirubin 0.3 AST 13 L ALT 14 Alkaline Phosphatase 55 Total Protein 6.1 L Albumin 2.2 L Globulin 3.9 Albumin/Globulin Ratio 0.6 Discharge Plan Discharge Disposition: Home, Self-Care Discharge Medications: New metoprolol tartrate 75 mg tablet 75 mg PO BID Qty: 60 0RF cephalexin 500 mg capsule 500 mg PO Q8H 7 Days Qty: 21 0RF Continued tizanidine 4 mg tablet 4 mg PO Q12H PRN (Reason: muscle spasticity) hydralazine 25 mg tablet 50 mg PO TID Rx Instructions: LAST FILLED PER REFILL HX ON 07/21/2023 FOR #270 FOR 90 DAYS. TAKE MORNING, AT NOON AND AT BEDTIME isosorbide mononitrate 60 mg tablet extended release 24 hr 60 mg PO QDAY pantoprazole 40 mg tablet,delayed release (DR/EC) 40 mg PO QDAY valsartan 320 mg tablet 320 mg PO QDAY zolpidem 10 mg tablet 10 mg PO .QHS PRN (Reason: sleep) ezetimibe 10 mg tablet 10 mg PO QDAY duloxetine 30 mg capsule,delayed release(DR/EC) 30 mg PO QDAY Rx Instructions: WITH 60MG TO TOTAL 90MG DAILY duloxetine 60 mg capsule,delayed release(DR/EC) 60 mg PO QDAY pregabalin 75 mg capsule 75 mg PO Q12H fenofibrate nanocrystallized 145 mg tablet 145 mg PO QDAY Eliquis 2.5 mg tablet 2.5 mg PO Q12H Discontinued metoprolol tartrate 50 mg tablet 50 mg PO Q12H Activity: increase activity as tolerated Diet: advance to your usual diet Print Language: Portuguese Patient Instructions: Cephalexin (By mouth), Cellulitis (GEN), Hypokalemia (DC), Hypertensive Crisis (DC) Forms: Portal Instructions Follow Up Appointments: @ 3:15pm with Dr. Vogt [phone] @ 1:15pm with Dr. Aguilera [place] [facility] [phone] Discharge Date/Time: 09/20/23 13:23
== END 2023-09-20 13:23 | disposition home or self-care (01) | DRG 603 ==
LOC: ER 23:19 → MS 09-19
PROVIDERS: Nurse Practitioner; Admitting Provider Family Medicine; Emergency Provider Emergency Medicine; PCP Internal Medicine; Visit Provider Family Medicine
DX: L03.116 Cellulitis of left lower limb (principal); I13.0 Hypertensive heart and chronic kidney disease with heart failure and stage 1 through stage 4 chronic kidney disease, or unspecified chronic kidney disease; I50.32 Chronic diastolic (congestive) heart failure; N18.32 Chronic kidney disease, stage 3b; I16.0 Hypertensive urgency; I25.10 Atherosclerotic heart disease of native coronary artery without angina pectoris; I70.1 Atherosclerosis of renal artery; I73.9 Peripheral vascular disease, unspecified; E87.6 Hypokalemia; E78.00 Pure hypercholesterolemia, unspecified; F17.210 Nicotine dependence, cigarettes, uncomplicated; F32.A Depression, unspecified; Z79.01 Long term (current) use of 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; Z79.899 Other long term (current) drug therapy; Z86.711 Personal history of pulmonary embolism; Z95.828 Presence of other vascular implants and grafts; Z88.8 Allergy status to other drugs, medicaments and biological substances; Z90.49 Acquired absence of other specified parts of digestive tract; Z82.3 Family history of stroke; Z82.49 Family history of ischemic heart disease and other diseases of the circulatory system; Z80.9 Family history of malignant neoplasm, unspecified
CPT/HCPCS: 36410; 36415; 36592; 71045; 80048; 80053; 82948; 83605; 85025; 85610; 85652; 85730; 86140; 87040; 90662; 93926; 94761; 96365; 96366; 96367; 96368; 96375; 96376; 99285; C1887; G0008; J0360; J0690; J1290; J1644; J2270; J2405; J3480

== ENCOUNTER 2023-10-18 15:03 | Outpatient (OUT) | payer MEDICARE, SELFPAY ==
--- OUTSIDE RECORDS SUMMARY | 2023-10-18 15:06 | XMS_ITS | CCD ---
Author Name Unknown Address [address] [place] [address] Organization [facility] Care Team Providers Care Electrical Maintenance Supervisor Name Role Phone DESIRAE, SHAKA H. Unavailable Unavailable JACK VOGT Unavailable Unavailable DESIRAE, SHAKA H. Unavailable Unavailable DESIRAE, SHAKA H. Unavailable Unavailable JACK VOGT Unavailable Unavailable DESIRAE, SHAKA H. Unavailable Unavailable DESIRAE, SHAKA H. Unavailable Unavailable JACK VOGT Unavailable Unavailable THOMAS Vogt Primary Care Provider THOMAS Vogt Referring Provider Self, Referral Attending Provider Unavailable JACK VOGT Primary Care Physician [phone] JOHN EPPERSON Attending Unavailable JOHN EPPERSON Admitting Unavailable JOHN EPPERSON Consulting Unavailable DR JACK VOGT Primary Care Unavailable JOHN EPPERSON Attending Unavailable JOHN EPPERSON Admitting Unavailable DR JACK VOGT Primary Care Unavailable DR HENRY PARKER V Consulting Unavailable JOHN EPPERSON Consulting Unavailable JOHN EPPERSON Attending Unavailable CHANDAN EPPERSONA Admitting Unavailable JOHN EPPERSON Consulting Unavailable DR JACK VOGT Primary Care Unavailable JOHN EPPERSON Attending Unavailable ZHOU, JOHN Admitting Unavailable JOHN EPPERSON Consulting Unavailable DR JACK VOGT Primary Care Unavailable SARAY MONCADA Attending Unavailable SARAY MONCADA Admitting Unavailable DR JACK VOGT Primary Care Unavailable DR TONYA GARCIA Consulting Unavailable SARAY MONCADA Consulting Unavailable HAWK COELHO Consulting Unavailable DR JACK VOGT Primary Care Unavailable HAWK COELHO Attending Unavailable HAWK COELHO Admitting Unavailable RYLAN HOPKINS Consulting Unavailable CARLYN DODGE Attending Unavailable KRISHAN DODGEISSA Admitting Unavailable DR JACK VOGT Primary Care Unavailable ZIEBER, DR TONYA Moya Consulting Unavailable DAR, CARLYN Consulting Unavailable COELHO, HAWK Consulting Unavailable VOGT, DR DOSS Primary Care Unavailable COELHO, HAWK Attending Unavailable COELHO, HAWK Admitting Unavailable WEST, DR HENRY Mosley Consulting Unavailable DAR, CARLYN Attending Unavailable DAR, CARLYN Admitting Unavailable DAR, CARLYN Consulting Unavailable VOGT, DR DOSS Primary Care Unavailable ZHOU, JOHN Attending Unavailable ZHOU, JOHN Admitting Unavailable VOGT, DR DOSS Primary Care Unavailable ZIEBER, DR TONYA Moya Consulting Unavailable ZHOU, JOHN Consulting Unavailable NEFCY, JERRICA Consulting Unavailable Self, Referral Attending Unavailable Self, Referral Admitting Unavailable Vogt, Jack Referring Unavailable VogtJack Primary Care Unavailable COELHO, Hawk R Attending Unavailable COELHO, Hawk R Attending Unavailable COELHO, Hawk R Attending Unavailable VOGT, JACK Boudreaux Attending Unavailable DAR, CARLYN Attending Unavailable MOUKARBEL, SACHIN Attending Unavailable MOUKARBEL, SACHIN Attending Unavailable Allergies Allergy Classification Reported Allergen(s) Allergy Type Date of Onset Reaction(s) Facility (7 sources) Iodine; Translations: [Iodine] Drug Allergy 0 Eruption of skin (disorder) [facility] (2 sources) Pneumococcal vaccine; Translations: [pneumococcal vaccine] Drug Allergy 1 Edema [facility] (3 sources) varenicline; Translations: [varenicline] Drug Allergy 1 Vomiting [facility] (2 sources) Yoowlzk-HTU-HkT Reductase Inhibitor; Translations: [Xbnznep-QOM-SnQ Reductase Inhibitor] Allergy to substance 1 Unknown Reaction [facility] (3 sources) HMG-CoA reductase inhibitor; Translations: [statins] Drug allergy Unknown (qualifier value) [facility] (3 sources) Shellfish; Translations: [shellfish] Drug allergy Unknown (qualifier value) [facility] (2 sources) black walnut pollen extract; Translations: [DZTWBMY-VXD-TWD REDUCTASE INHIBITORS] Drug Allergy 0 [facility] (1 source) varenicline Drug Allergy 0 [facility] (1 source) Pneumovax 23 Drug allergy (disorder) 0 [facility] (1 source) Contrast media; Translations: [RED DYE] Propensity to adverse reactions to drug (disorder) 2 [facility] Rep[facility] (1 source) nickel; Translations: [NICKEL] Drug Allergy 8 [facility] (1 source) Pneumococcal vaccine; Translations: [PNEUMOCOCCAL 23-CRUZ PS VACCINE] Drug Allergy 1 [facility] Repository (1 source) Shellfish; Translations: [SHELLFISH DERIVED] Propensity to adverse reactions to drug (disorder) 8 [facility] Repository Medications Current Medications Medication Drug Class(es) [...] Start: 03-04-2022 nitroglyce rin 0.4 mg SubL [place] mg spray(s), SubLingual, q5min, Refills(s) 0 Start [...] disease (7 sources) Atherosclerotic heart disease of [place] coronary artery without angina pectoris; 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] Onset: 2 Chronic [...] source) Long-term current use of anticoagulant; Translations: [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] Onset: 3 Episodic [...] artery; Translations: [Atherosclerosis of renal artery] Onset: 4 Chronic Phlebitis; thrombophlebitis and thromboembolism (2 sources) Personal history of other venous thrombosis and embolism; Translations: [Personal history of other venous thrombosis and embolism] Onset: 4 Episodic Residual codes; unclassified (3 sources) Localized edema; Translations: [LOCALIZED EDEMA] Onset: 2 Episodic Spondylosis; intervertebral disc disorders; other back [...] Da te Episodic/Chronic Other aftercare (1 source) 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; Translations: [SNF CURRNT USE ANTICOAGULANTS] Onset: 02-10-2022 Episodic Other [...] [PERSONAL HISTORY PULMONARY EMBOLISM] Onset: 02-10-2022 Episodic Results Test Name Value Interpretation Reference Range Facility Office Visiton 10-11-2023 Follow-up visit [id number] Lauren Nguyen 1950 F Date Provider Department Center 10/11/2023 SACHIN KEITH [facility] Family History Problem Relation Age of Onset Coronary artery disease Mother Stroke Mother Coronary artery disease Father Ovarian cancer Sister Family Status - Relation Status Age at Mother Father Sister Level of Service:81951 NC OFFICE/OUTPATIENT ESTABLISHED MOD MDM 30 MIN Normal [facility] Lab Reportson 07-28-2023 Lab Reports [id number] Normal [facility] RAD - MRI Reporton RAD - MRI Report [id number]#[id number] Normal [facility] Reminderson 07-25-2023 Reminders - From: Pati Akins To: EU - Recalls Coelho; Sent: 09/26/2022 13:52:32 EST Show up: 05/29/2023 13:52:00 EDT Subject: Ct scan with Due Date/Time: 07/03/2023 13:52:00 EDT Reminder/Recall Pt needs scheduled for Ct scan with contrast, BUN/creatinine prior to 07/24/23 appt. PT uses [facility] From: Tsering Dean MA (EU - Recalls Coelho) To: EU - Recalls Laquita; Sent: 06/27/2023 11:43:21 EDT Show up: 07/04/2023 11:42:00 EDT Subject: RE: Ct scan with Due Date/Time: 07/11/2023 11:43:[address] order, last encounter & demographics faxed to [facility]. Will call and check on status in 1wk. Pt has f/u to review 07/24/23 Allergic to contrast dye. MRI ordered in replacement. Follow up rescheduled to September. Normal [facility] Office Visiton 07-21-2023 Follow-up visit [id number] Lauren Nguyen L 1950 F Date Provider Department Center 07/21/2023 SACHIN KEITH Family History Problem Relation Age of Onset Coronary artery disease Mother Stroke Mother Coronary artery disease Father Ovarian cancer Sister Family Status - Relation Status Age at Mother Father Sister Level of Service:01319 NC OFFICE/OUTPATIENT ESTABLISHED MOD MDM 30-39 MIN Normal [facility] Lab Reportson 05-29-2023 Lab Reports [id number]:[id number] [facility] Documentationon 02-23-2023 Documentation [id number] Lauren Nguyen nda L 1950 F Date Provider Department Center 02/23/2023 Ewa-CARLYN DODGE [facility] Family History Problem Relation Age of Onset Coronary artery disease Mother Stroke Mother Coronary artery disease Father Ovarian cancer Sister Family Status - Relation Status Age at Mother Father Sister Reason for Visit and Comments: pre op cardiac evaluation [Other] Normal [facility] MM screening mammo BI w/CADo n 02-03-2023 MM screening mammo BI w/CAD [facility] [place] [address] Mammography Report Signed Patient: Marleni Nguyen MR#: [id number] : 1950 Acct:[id number] Age/Sex: 72 / F ADM Date: 02/03/23 Loc: [place] Room: Type: [facility] Attending Dr: Referral Self Copies to: [...] mammogram. Impression dictated by: Andrew Moe Jr., D.OGenet02/03/2023 2:42 PM Dictation Location: [facility] Transcribed By: [facility] 02/03/23 1442 Dictated By: Andrew Moe Jr, DO 02/03/23 1441 Signed By: 02/03/23 1442 [facility] CBC AUTO DIFFon 01-18-2023 BASO # 0.1 103/ul Normal 0.0-0.1 [facility] Comment on above: Performed By: #### C BC #### [facility] [address] [address] [address] Aryan Petty Basophils/100 WBC (Bld) 1.4 % Normal 0.2-2.0 [facility] Comment on above: Performed By: #### C BC #### [facility] [address] [place] [address] Dr. Aryan Petty EO # 0.6 103/ul Normal 0.0-0.7 [facility] Comment on above: Performed By: #### C BC #### [facility] [address] [address] [address] Aryan Petty Eosinophils/100 WBC (Bld) 7.7 % Critically high 0.9-7.0 [facility] Comment on above: Performed By: #### C BC #### [facility] [address] [address] [address] Aryan Petty Erythrocyte distribution width (RBC) [Ratio] 16.4 % Critically high 11.0-15.0 [facility] Comment on above: Performed By: #### C BC #### [facility] [address] [place] [address] Dr. Aryan Petty Hematocrit (Bld) [Volume fraction] 40.6 % Normal 36.0-48.0 [facility] Comment on above: Performed By: #### C BC #### [facility] [address] [place] [address] Dr. Aryan Petty Hemoglobin (Bld) [Mass/Vol] 12.9 g/dL Normal 12.0-16.0 [facility] Comment on above: Performed By: #### C BC #### [facility] [address] [place] [address] Dr. Aryan Petty IG # 0.03 10e3/ul Normal 0.00-0.03 [facility] Comment on above: Performed By: #### C BC #### [facility] [address] [place] [address] Dr. Aryan Petty IG % 0.4 % Normal 0.0-0.5 [facility] Comment on above: Performed By: #### C BC #### [facility] [address] [place] [address] Dr. Aryan Petty LYMPH # 2.6 103/ul Normal 1.2-3.8 [facility] Comment on above: Performed By: #### C BC #### [facility] [address] [place] [address] Dr. Aryan Petty Lymphocytes/100 WBC (Bld) 35.5 % Normal 20.5-60.0 [facility] Comment on above: Performed By: #### C BC #### [facility] [address] [place] [address] Dr. Aryan Petty MANUAL DIFF REQ NO Normal [facility] Comment on above: Performed By: #### C BC #### [facility] [address] [place] [address] Dr. Aryan Petty MCH (RBC) [Entitic mass] 26.5 pg Critically low 26.7-34.0 [facility] Comment on above: Performed By: #### C BC #### [facility] [address] [place] [address] Dr. Aryan Petty MCHC (RBC) [Mass/Vol] 31.8 g/dL Normal 29.9-35.2 [facility] Comment on above: Performed By: #### C BC #### [facility] [address] [place] [address] Dr. Aryan Petty MCV (RBC) [Entitic vol] 83.5 fL Normal 81.0-99.0 [facility] Comment on above: Performed By: #### C BC #### [facility] [address] [place] [address] Dr. Aryan Petty MONO # 0.7 103/ul Normal 0.3-0.8 [facility] Comment on above: Performed By: #### C BC #### [facility] [address] [place] [address] Dr. Aryan Petty Monocytes/100 WBC (Bld) 9.9 % Normal 1.7-12.0 [facility] Comment on above: Performed By: #### C BC #### [facility] [address] [place] [address] Dr. Aryan Petty NEUT # 3.3 103/ul Normal 1.4-6.5 [facility] Comment on above: Performed By: #### C BC #### [facility] [address] [place] [address] Dr. Aryan Petty Neutrophils/100 WBC (Bld) 45.1 % Normal 43.0-75.0 [facility] Comment on above: Performed By: #### C BC #### [facility] [address] [place] [address] Dr. Aryan Petty Platelet mean volume (Bld) [Entitic vol] 11.0 fL Normal 9.5-13.5 [facility] Comment on above: Performed By: #### C BC #### [facility] [address] [place] [address] Dr. Aryan Petty PLT 270 103/ul Normal 150-450 [facility] Comment on above: Performed By: #### C BC #### [facility] [address] [place] [address] Dr. Aryan Petty RBC 4.86 106/ul Normal 4.20-5.40 [facility] Comment on above: Performed By: #### C BC #### [facility] [address] [place] [address] Dr. Aryan Petty WBC 7.4 103/ul Normal 4.0-11.0 [facility] Comment on above: Performed By: #### C BC #### [facility] [address] [place] [address] Dr. Aryan Petty LIPID PROFILEon 01-18-2023 CHOL-HDL RATIO NORM SEE BELOW Normal [facility] Comment on above: Result Comment: 3.3 - 4.4 LOW RISK 4.4 - 7.1 AVERAGE RISK 7.1 - 11.0 MODERATE RISK >11.0 HIGH RISK Performed By: #### C MP, LIPID #### [facility] [address] [place] [address] Dr. Aryan Petty Cholesterol [Mass/Vol] 189 mg/dL Normal <=200 [facility] Comment on above: Performed By: #### C MP, LIPID #### [facility] [address] [place] [address] Dr. Aryan Petty Cholesterol in HDL [Mass/Vol] 30 mg/dL Critically low 40-60 [facility] Comment on above: Performed By: #### C MP, LIPID #### [facility] [address] [place] [address] Dr. Aryan Petty Cholesterol in LDL [Mass/Vol] 101.6 mg/dL Normal [facility] Comment on above: Performed By: #### C MP, LIPID #### [facility] [address] [place] [address] Dr. Aryan Petty Cholesterol.total/ Cholesterol in HDL [Mass ratio] 6.3 {ratio} Normal [facility] Comment on above: Performed By: #### C MP, LIPID #### [facility] [address] [place] [address] Dr. Aryan Petty HDL NORMAL > or = 60 mg/dl - LO W CARDIOVASCULAR RISK <40 mg/dl - HIGH CARDIOVASCULAR RISK Normal [facility] Comment on above: Performed By: #### C MP, LIPID #### [facility] [address] [place] [address] Dr. Aryan Petty LDL CALC NORMAL SEE BELOW Normal [facility] Comment on above: Result Comment: <100 mg/dl OPTIMAL 100 - 129 mg/dl NEAR OR ABOVE OPTIMAL 130 - 159 mg/dl BORDERLINE HIGH 160 - 189 mg/dl HIGH >190 mg/dl VERY HIGH Performed By: #### C MP, LIPID #### [facility] [address] [place] [address] Dr. Aryan Petty Triglyceride [Mass/Vol] 287 mg/dL Critically high <=150 [facility] Comment on above: Performed By: #### C MP, LIPID #### [facility] [address] [place] [address] Dr. Aryan Petty VLDL CALC 57.4 mg/dL Normal [facility] Comment on above: Performed By: #### C MP, LIPID #### [facility] [address] [place] [address] Dr. Aryan Petty PROF 14(COMP METB)on 023 Albumin [Mass/Vol] 3.6 g/dL Normal 3.4-5.0 [facility] Comment on above: Performed By: #### C MP, LIPID #### [facility] [address] [place] [address] Dr. Aryan Petty Albumin/Globulin [Mass ratio] 0.8 {ratio} Normal [facility] Comment on above: Performed By: #### C MP, LIPID #### [facility] [address] [place] [address] Dr. Aryan Petty ALP [Catalytic activity/Vol] 86 U/L Normal 46-116 [facility] Comment on above: Performed By: #### C MP, LIPID #### [facility] [address] [place] [address] Dr. Aryan Petty ALT [Catalytic activity/Vol] 21 U/L Normal 14-59 [facility] Comment on above: Performed By: #### C MP, LIPID #### [facility] [address] [place] [address] Dr. Aryan Petty Anion gap [Moles/Vol] 13.1 mmol/L Normal [facility] Comment on above: Performed By: #### C MP, LIPID #### [facility] [address] [place] [address] Dr. Aryan Petty AST [Catalytic activity/Vol] 27 U/L Normal 15-37 [facility] Comment on above: Performed By: #### C MP, LIPID #### [facility] [address] [address] [address] Aryan Petty Bilirubin [Mass/Vol] 0.4 mg/dL Normal 0.2-1.0 [facility] Comment on above: Performed By: #### C MP, LIPID #### [facility] [address] [place] [address] Dr. Aryan Petty Calcium [Mass/Vol] 9.4 mg/dL Normal 8.5-10.1 [facility] Comment on above: Performed By: #### C MP, LIPID #### [facility] [address] [place] [address] Dr. Aryan Petty Chloride [Moles/Vol] 103 mmol/L Normal 98-107 [facility] Comment on above: Performed By: #### C MP, LIPID #### [facility] [address] [place] [address] Dr. Aryan Petty CO2 [Moles/Vol] 27.6 mmol/L Normal 21.0-32.0 [facility] Comment on above: Performed By: #### C MP, LIPID #### [facility] [address] [place] [address] Dr. Aryan Petty Creatinine [Mass/Vol] 2.21 mg/dL Critically high 0.55-1.02 [facility] Comment on above: Performed By: #### C MP, LIPID #### [facility] [address] [place] [address] Dr. Aryan Petty EGFR-AF BRITISH 26 mL/min/1.73m2 Critically low >=60 [facility] Comment on above: Performed By: #### C MP, LIPID #### [facility] [address] [place] [address] Dr. Aryan Petty EGFR-NON AF BRITISH 22 mL/min/1.73m2 Critically low >=60 [facility] Comment on above: Performed By: #### C MP, LIPID #### [facility] [address] [place] [address] Dr. Aryan Petty Globulin (S) [Mass/Vol] 4.6 g/dL Normal [facility] Comment on above: Performed By: #### C MP, LIPID #### [facility] [address] [address] [address] Aryan Petty Glucose [Mass/Vol] 120 mg/dL Critically high 74-106 T [facility] Comment on above: Performed By: #### C MP, LIPID #### [facility] [address] [place] [address] Dr. Aryan Petty Potassium [Moles/Vol] 4.0 mmol/L Normal 3.5-5.1 [facility] Comment on above: Performed By: #### C MP, LIPID #### [facility] [address] [place] [address] Dr. Aryan Petty Protein [Mass/Vol] 8.2 g/dL Normal 6.4-8.2 [facility] Comment on above: Performed By: #### C MP, LIPID #### [facility] [address] [place] [address] Dr. Aryan Petty Sodium [Moles/Vol] 140 mmol/L Normal 136-145 [facility] Comment on above: Performed By: #### C MP, LIPID #### [facility] [address] [place] [address] Dr. Aryan Petty Urea nitrogen [Mass/Vol] 29.0 mg/dL Critically high 7.0-18.0 [facility] Comment on above: Performed By: #### C MP, LIPID #### [facility] [address] [place] [address] Dr. Aryan Petty Urea nitrogen/Creatinin e [Mass ratio] 13.1 mg/mg Normal [facility] Comment on above: Performed By: #### C MP, LIPID #### [facility] [address] [place] [address] Dr. Aryan Petty US CAROTID ART BILon [...] by: TONYA GARCIA Date: 2023-01-10 15:26 Normal [facility] Office Visiton 01-04-2023 Follow-up visit [id number] Lauren Nguyen 1950 F Date Provider Department Center 01/04/2023 Ewa-CARLYN DODGE [facility] Family History Problem Relation Age of Onset Coronary artery disease Mother Stroke Mother Coronary artery disease Father Ovarian cancer Sister Family Status - Relation Status Age at Mother Father Sister Level of Service:63515 NC OFFICE/OUTPATIENT ESTABLISHED MOD MDM 30-39 MIN Reason for Visit and Comments: Follow-up [820505] - 6 month f/u Edema [[id number]] Shortness of Breath [654646] - W/ exertion Normal [facility] Ambulatory Visit Summaryon 0 09-26-2022 Ambulatory Visit Summary MARLENI NGUYEN :1950 Visit Date:09/26/2022 Ambulatory Visit Instructions Your Diagnosis Kidney lesion 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 Tests Performed Urnls Dip Stick Auto w/o Microscopy POC [address] CT Abdomen/Pelvis w/ Contrast -- Results Pending -- Please visit your patient portal for your results or contact your primary care physician. Your Care Team Attending Physician - LAQUITA BEAULIEU, Hawk Moya Primary Care Physician - SIN BEAULIEU, JACK Boudreaux This Is Your Medications [...] mg Tab) nitroglycerin (nitroglycerin 0.4 mg SubL [place]) pantoprazole (Pantoprazole [address] Tab) pregabalin [...] Follow-Up Appointments Monday 1:15 PM EST With: LAQUITA BEAULIEU, Hawk Moya Where: [facility] Patient Educationon 09-26-19 23 Patient [...] these instructions at home: Medicines ? Take [id number] and prescription medicines only as told by [...] 02/20/2009 Document Revised: 08/22/2019 Document Reviewed: 03/14/2019 [employer] Patient Education ? 2019 [employer]. [facility] Urology Office/Clinic Noteon 09-26-2022 Urology Office/Clinic Note Chief Complaint 6m MRI HPI Staff 6m w/MRI Abd due to Kidney Lesion. MRI abd done 08/29/22 @ [facility]. Denies flank pain. States she still has [...] Pt understands and acknowledges. 2. 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 (Z79.01: senior care (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) Pt currently taking Eliquis. Follow-up With When Contact Information LAQUITA BEAULIEU, Hawk Moya, URL In 10 months [facility] [address], [place] [address] [phone] Additional Instructions: CT AP w/ contrast Patient Education Urinary Tract Infection, Adult, Mzsm-tx-Lrbl Mayte Anderson, personally scribed for Dr. Coelho on 09/26/2022 13:45:52. . Documentation recorded by the Mayte kerr, accurately reflects the services(s) I performed and [...] tablet, extended release nitroglycerin 0.4 mg SubL [place], SubLingual, q5min Pantoprazole [address] Tab [...] virus vaccine, inactivated 07/04/2022 Recorded SARS-CoV-2 (COVID-19) [id number] 07/04/2022 Recorded influenza virus vaccine, inactivated 06/24/2021 [...] Protein Urine Dipstick: Trace (09/26/22 12:56:00) Specific [place] Urine Di (more content not included)... Normal [facility] Comment on above: Result Comment: Elec tronically Signed By: Hawk COELHO MD\.br\Date and Time Signed: 09/26/22 13:54 EST\.br\Electronically Co-Signed By: Mayte Vogt\.br\Date and Time Co-Signed: 09/26/22 13:46 EST XR [...] by: TONYA GARCIA Date: 2022-09-07 16:41 Normal [facility] RAD - MRI Reporton RAD - MRI Report [id number]:[address] [facility] Lab Reportson 09-02-2022 Lab Reports [id number]:[address] [facility] MRI ABDOMEN WO W CONon 09-01 [...] by: RYLAN HOPKINS Date: 2022-09-01 12:43 Normal [facility] CREATININEon 08-29-2022 Creatinine [Mass/Vol] 2.23 mg/dL Critically high 0.55-1.02 [facility] Comment on above: Performed By: #### C JUDAH ####[facility] [address] [place] [address]Dr. Aryan Petty EGFR-AF BRITISH 26 mL/min/1.73m2 Critically low >=60 [facility] Comment on above: Performed By: #### C JUDAH ####[facility] [address] [place] [address]Dr. Aryan Petty EGFR-NON AF BRITISH 22 mL/min/1.73m2 Critically low >=60 [facility] Comment on above: Performed By: #### Lauri MCCURDYA ####[facility] [address] [place] [address]Dr. Aryan Petty Physician Orderon 08-08-2022 Physician Order [id number]:[address] [facility] ECHOCARDIO M/2D COMPLETEon 0 03-16-2022 ECHOCARDIO M/2D COMPLETE Patient: MARLENI NUGYEN Exam Date: 03/16/2022 : 1950 Gender:F Ordering : JOHN EPPERSON Admission #: [id number] Family : DR JACK VOGT M.D. Order #: [id number] CLICK HERE TO VIEW EXAM ECHOCARDIOGRAM REPORT [...] can provide better assessment. Dictated by: Sachin Aguilera M.D. on 03/16/2022 at 16:27 Approved by: Sachin Aguilera M.D. on 03/16/2022 at 16:36 Normal [facility] BNPon 02-22-2022 Natriuretic peptide B (Bld) [Mass/Vol] 553.0 pg/mL Normal <=900.0 [facility] Comment on above: Performed By: #### B PAPER TUBE MACHINE OPERATOR, BMP ####[facility] [address] [place] [address]Dr. Aryan Petty PROF CHEM 8 (BAS METB)on Anion gap [Moles/Vol] 14.9 mmol/L Normal [facility] Comment on above: Performed By: #### B PAPER TUBE MACHINE OPERATOR, BMP ####[facility] [address] [place] [address]Dr. Aryan Petty Calcium [Mass/Vol] 9.1 mg/dL Normal 8.5-10.1 [facility] Comment on above: Performed By: #### B PAPER TUBE MACHINE OPERATOR, BMP ####[facility] [address] [place], [place] [address]Dr. Aryan Petty Chloride [Moles/Vol] 102 mmol/L Normal 98-107 [facility] Comment on above: Performed By: #### B PAPER TUBE MACHINE OPERATOR, BMP ####[facility] [address] [place], [place] [address]Dr. Aryan Petty CO2 [Moles/Vol] 27.7 mmol/L Normal 21.0-32.0 [facility] Comment on above: Performed By: #### B PAPER TUBE MACHINE OPERATOR, BMP ####[facility] [address] [place], [place] [address]Dr. Aryan Petty Creatinine [Mass/Vol] 1.80 mg/dL Critically high 0.55-1.02 [facility] Comment on above: Performed By: #### B PAPER TUBE MACHINE OPERATOR, BMP ####[facility] [address] [place], [place] [address]Dr. Aryan Petty EGFR-AF BRITISH 34 mL/min/1.73m2 Critically low >=60 [facility] Comment on above: Performed By: #### B PAPER TUBE MACHINE OPERATOR, BMP ####[facility] [address] [place], [place] [address]Dr. Aryan Petty EGFR-NON AF BRITISH 28 mL/min/1.73m2 Critically low >=60 [facility] Comment on above: Performed By: #### B PAPER TUBE MACHINE OPERATOR, BMP ####[facility] [address] [place], [place] [address]Dr. Aryan Petty Glucose [Mass/Vol] 107 mg/dL Critically high 74-106 [facility] Comment on above: Performed By: #### B PAPER TUBE MACHINE OPERATOR, BMP ####[facility] [address] [place] [address]Dr. Aryan Petty Potassium [Moles/Vol] 3.6 mmol/L Normal 3.5-5.1 [facility] Comment on above: Performed By: #### B PAPER TUBE MACHINE OPERATOR, BMP ####[facility] [address] [place] [address]Dr. Aryan Petty Sodium [Moles/Vol] 141 mmol/L Normal 136-145 [facility] Comment on above: Performed By: #### B PAPER TUBE MACHINE OPERATOR, BMP ####[facility] [address] [place] [address]Dr. Aryan Petty Urea nitrogen [Mass/Vol] 33.0 mg/dL Critically high 7.0-18.0 [facility] Comment on above: Performed By: #### B PAPER TUBE MACHINE OPERATOR, BMP ####[facility] [address] [place] [address]Dr. Aryan Petty Urea nitrogen/Creatinin e [Mass ratio] 18.3 mg/mg Normal [facility] Comment on above: Performed By: #### B PAPER TUBE MACHINE OPERATOR, BMP ####[facility] [address] [place] [address]Dr. Aryan Petty US KIDNEYSon 02-22-2022 US KIDNEYS EXAMINATION: [facility] HISTORY: Kidney lesion COMPARISON: 03/24/2021 TECHNIQUE: Ultrasound [...] by: HENRY PARKER Date: 2022-02-22 17:17 Normal [facility] VC VENOUS REFLUX TEJ LMTon 0 02-16-2022 VC VENOUS REFLUX TEJ LMT Patient: MARLENI NGUYEN Exam Date: 02/16/2022 : 1950 Gender:F Ordering : JOHN EPPERSON Admission #: [id number] Family : Order #: [id number] CLICK HERE TO VIEW EXAM RADIOLOGY REPORT [...] proximal SSV. Flow: Mild deep venous reflux. Tentering Machine Off Bearer: Dist/med calf 3.3 mm with 0.3s reflux. [...] Normal. Flow: Mild deep venous reflux noted. Tentering Machine Off Bearer: Mid/medial calf 3.1mm, 2.9s. Dist/med calf 3.1mm, [...] Parker MD on 02/16/2022 at 11:49 Normal [facility] US CAROTID ART BILon 05-20-2 022 [...] by: TONYA GARCIA Date: 2022-02-04 17:45 Normal [facility] US WALTER DOP LEG BILon 022 US WALTER DOP LEG TEJ EXAM: [...] JERRICA HOLDEN Date: 2022-02-04 16:34 Normal [facility] BNPon 01-31-2022 Natriuretic peptide B (Bld) [Mass/Vol] 620.0 pg/mL Normal <=900.0 [facility] Comment on above: Performed By: #### B PAPER TUBE MACHINE OPERATOR, BMP, LIPID ####[facility] [address] [place], [place] [address] Aryan Jovanny LIPID PROFILEon 01-31-2022 CHOL-HDL RATIO NORM SEE BELOW Normal [facility] Comment on above: Result Comment: 3.3 - 4.4 LOW RISK 4.4 - 7.1 AVERAGE RISK 7.1 - 11.0 MODERATE RISK >11.0 HIGH RISK Performed By: #### B PAPER TUBE MACHINE OPERATOR, BMP, LIPID ####[facility] [address] [place] [id number]. Aryan Petty Cholesterol [Mass/Vol] 148 mg/dL Normal <=200 [facility] Comment on above: Performed By: #### B PAPER TUBE MACHINE OPERATOR, BMP, LIPID ####[facility] [address] [place] [id number]. Aryan Petty Cholesterol in HDL [Mass/Vol] 25 mg/dL Critically low 40-60 [facility] Comment on above: Performed By: #### B PAPER TUBE MACHINE OPERATOR, BMP, LIPID ####[facility] [address] [place] [phone]. Aryan Petty Cholesterol in LDL [Mass/Vol] 80.8 mg/dL Normal [facility] Comment on above: Performed By: #### B PAPER TUBE MACHINE OPERATOR, BMP, LIPID ####[facility] [address] [place] [address]Dr. Aryan Petty Cholesterol.total/ Cholesterol in HDL [Mass ratio] 5.9 {ratio} Normal [facility] Comment on above: Performed By: #### B PAPER TUBE MACHINE OPERATOR, BMP, LIPID ####[facility] [address] [place] [id number]. Aryan Petty HDL NORMAL > or = 60 mg/dl - LO W CARDIOVASCULAR RISK <40 mg/dl - HIGH CARDIOVASCULAR RISK Normal [facility] Comment on above: Performed By: #### B PAPER TUBE MACHINE OPERATOR, BMP, LIPID ####[facility] [address] [place] [phone]. Aryan Petty LDL CALC NORMAL SEE BELOW Normal [facility] Comment on above: Result Comment: <100 mg/dl OPTIMAL 100 - 129 mg/dl NEAR OR ABOVE OPTIMAL 130 - 159 mg/dl BORDERLINE HIGH 160 - 189 mg/dl HIGH >190 mg/dl VERY HIGH Performed By: #### B PAPER TUBE MACHINE OPERATOR, BMP, LIPID ####[facility] [address] [place] [phone]. Aryan Petty Triglyceride [Mass/Vol] 211 mg/dL Critically high <=150 [facility] Comment on above: Performed By: #### B PAPER TUBE MACHINE OPERATOR, BMP, LIPID ####[facility] [address] [place] [phone]. Aryan Petty VLDL CALC 42.2 mg/dL Normal [facility] Comment on above: Performed By: #### B PAPER TUBE MACHINE OPERATOR, BMP, LIPID ####[facility] [address] [place] [address]Dr. Aryan Petty PROF CHEM 8 (BAS METB)on Anion gap [Moles/Vol] 14.7 mmol/L Normal [facility] Comment on above: Performed By: #### B PAPER TUBE MACHINE OPERATOR, BMP, LIPID ####[facility] [address] [place] [address]Dr. Aryan Petty Calcium [Mass/Vol] 8.7 mg/dL Normal 8.5-10.1 [facility] Comment on above: Performed By: #### B PAPER TUBE MACHINE OPERATOR, BMP, LIPID ####[facility] [address] [place] [address]Dr. Suzannetanisha Petty Chloride [Moles/Vol] 104 mmol/L Normal 98-107 [facility] Comment on above: Performed By: #### B PAPER TUBE MACHINE OPERATOR, BMP, LIPID ####[facility] [address] [place] [address]Dr. Suzannetanisha Petty CO2 [Moles/Vol] 26.0 mmol/L Normal 21.0-32.0 [facility] Comment on above: Performed By: #### B PAPER TUBE MACHINE OPERATOR, BMP, LIPID ####[facility] [address] [place] [address]Dr. Aryan Petty Creatinine [Mass/Vol] 2.91 mg/dL Critically high 0.55-1.02 [facility] Comment on above: Performed By: #### B PAPER TUBE MACHINE OPERATOR, BMP, LIPID ####[facility] [address] [place], [place] [address]Dr. Aryan Petty EGFR-AF BRITISH 19 mL/min/1.73m2 Critically low >=60 [facility] Comment on above: Performed By: #### B PAPER TUBE MACHINE OPERATOR, BMP, LIPID ####[facility] [address] [place] [address]Dr. Aryan Petty EGFR-NON AF BRITISH 16 mL/min/1.73m2 Critically low >=60 [facility] Comment on above: Performed By: #### B PAPER TUBE MACHINE OPERATOR, BMP, LIPID ####[facility] [address] [place] [address]Dr. Aryan Petty Glucose [Mass/Vol] 110 mg/dL Critically high 74-106 [facility] Comment on above: Performed By: #### B PAPER TUBE MACHINE OPERATOR, BMP, LIPID ####[facility] [address] [place] [address]Dr. Aryan Petty Potassium [Moles/Vol] 3.7 mmol/L Normal 3.5-5.1 [facility] Comment on above: Performed By: #### B PAPER TUBE MACHINE OPERATOR, BMP, LIPID ####[facility] [address] [place] [address]Dr. Aryan Petty Sodium [Moles/Vol] 141 mmol/L Normal 136-145 [facility] Comment on above: Performed By: #### B PAPER TUBE MACHINE OPERATOR, BMP, LIPID ####[facility] [address] [place] [address]Dr. Aryan Petty Urea nitrogen [Mass/Vol] 51.0 mg/dL Critically high 7.0-18.0 [facility] Comment on above: Performed By: #### B PAPER TUBE MACHINE OPERATOR, BMP, LIPID ####[facility] [address] [place] [address]Dr. Suzannetanisha Petty Urea nitrogen/Creatinin e [Mass ratio] 17.5 mg/mg Normal [facility] Comment on above: Performed By: #### B PAPER TUBE MACHINE OPERATOR, BMP, LIPID ####[facility] [address] [place] [address]Dr. Suzannetanisha Petty Basic Metabolic Panel Reflex Mgon 06-07-2018 Anion gap 3 molar conc 10 mmol/L Normal 7-13 [facility] Calcium mass conc 8.2 mg/dL Low 8.6-10.2 [facility] Chloride molar conc 109 mmol/L Critically high 98-107 [facility] CO2 molar conc 25 mmol/L Normal 22-29 [facility] Creatinine mass conc 1.21 mg/dL Critically high 0.50-0.90 [facility] GFR/1.73 sq M predicted among blacks MDRD vol rate/area (S/P/Bld) 53.4 mL/min/{1.73_m2} Low >60 [facility] Comment on above: Result Comment: >60 mL/min/1.73m2 EGFR, calc. for ages 18 and older using theMDRD formula (not corrected for weight), is valid for stablerenal function. GFR/1.73 sq M.predicted MDRD vol rate/area 44.2 mL/min/{1.73_m2} Low >60 [facility] Comment on above: Result Comment: >60 mL/min/1.73m2 EGFR, calc. for ages 18 and older using theMDRD formula (not corrected for weight), is valid for stablerenal function. Glucose mass conc 111 mg/dL Critically high 74-109 [facility] Potassium reflex Mg 3.6 mEq/L Normal 3.5-5.1 [facility] Sodium molar conc 144 mmol/L Normal 132-144 [facility] Urea nitrogen mass conc 26 mg/dL Critically high 8-23 [facility] CBC With Platelet and Differ entialon 06-07-2018 Basophils Auto #/vol (Bld) 0.1 10*3/uL Normal 0.0-0.2 [facility] Basophils/100 WBC Auto (Bld) 0.7 % Normal [facility] Eosinophils Auto #/vol (Bld) 0.3 10*3/uL Normal 0.0-0.7 [facility] Eosinophils/100 WBC Auto (Bld) 3.1 % Normal [facility] Erythrocyte distribution width Auto Ratio (RBC) 13.4 % Normal 11.5-14.5 [facility] Hematocrit Auto Volume Fraction (Bld) 34.6 % Low 37.0-47.0 [facility] Hemoglobin mass conc (Bld) 12.0 g/dL Normal 12.0-16.0 [facility] Lymphocytes Auto #/vol (Bld) 2.3 10*3/uL Normal 1.0-4.8 [facility] Lymphocytes/100 WBC Auto (Bld) 24.2 % Normal [facility] MCH Auto Entitic mass (RBC) 33.0 pg Critically high 27.0-31.3 [facility] MCHC Auto mass conc (RBC) 34.6 % Normal 33.0-37.0 [facility] MCV Auto Entitic volume (RBC) 95.4 fL Normal 82.0-100.0 [facility] Monocytes Auto #/vol (Bld) 0.9 10*3/uL Critically high 0.2-0.8 [facility] Monocytes/100 WBC Auto (Bld) 9.8 % Normal [facility] Neutrophils Auto #/vol (Bld) 5.9 10*3/uL Normal 1.4-6.5 [facility] Neutrophils/100 WBC Auto (Bld) 62.2 % Normal [facility] Platelets Auto #/vol (Bld) 139 10*3/uL Normal 130-400 [facility] RBC Auto #/vol (Bld) 3.62 10*6/uL Low 4.20-5.40 [facility] WBC Auto #/vol (Bld) 9.5 10*3/uL Normal 4.8-10.8 [facility] Basic Metabolic Panelon 09- Anion gap 3 molar conc 11 mmol/L Normal 7-13 [facility] Calcium mass conc 8.3 mg/dL Low 8.6-10.2 [facility] Chloride molar conc 104 mmol/L Normal 98-107 [facility] CO2 molar conc 26 mmol/L Normal 22-29 [facility] Creatinine mass conc 1.90 mg/dL Critically high 0.50-0.90 [facility] GFR/1.73 sq M predicted among blacks MDRD vol rate/area (S/P/Bld) 31.8 mL/min/{1.73_m2} Low >60 [facility] Comment on above: Result Comment: >60 mL/min/1.73m2 EGFR, calc. for ages 18 and older using theMDRD formula (not corrected for weight), is valid for stablerenal function. GFR/1.73 sq M.predicted MDRD vol rate/area 26.2 mL/min/{1.73_m2} Low >60 [facility] Comment on above: Result Comment: >60 mL/min/1.73m2 EGFR, calc. for ages 18 and older using theMDRD formula (not corrected for weight), is valid for stablerenal function. Glucose mass conc 149 mg/dL Critically high 74-109 [facility] Potassium molar conc 4.1 mmol/L Normal 3.5-5.1 [facility] Sodium molar conc 141 mmol/L Normal 132-144 [facility] Urea nitrogen mass conc 25 mg/dL Critically high 8-23 [facility] CBC With Platelet and Differ entialon 06-06-2018 Basophils Auto #/vol (Bld) 0.0 10*3/uL Normal 0.0-0.2 [facility] Basophils/100 WBC Auto (Bld) 0.1 % Normal [facility] Eosinophils Auto #/vol (Bld) 0.0 10*3/uL Normal 0.0-0.7 [facility] Eosinophils/100 WBC Auto (Bld) 0.0 % Normal [facility] Erythrocyte distribution width Auto Ratio (RBC) 13.5 % Normal 11.5-14.5 [facility] Hematocrit Auto Volume Fraction (Bld) 35.0 % Low 37.0-47.0 [facility] Hemoglobin mass conc (Bld) 12.0 g/dL Normal 12.0-16.0 [facility] Lymphocytes Auto #/vol (Bld) 1.0 10*3/uL Normal 1.0-4.8 [facility] Lymphocytes/100 WBC Auto (Bld) 8.2 % Normal [facility] MCH Auto Entitic mass (RBC) 32.8 pg Critically high 27.0-31.3 [facility] MCHC Auto mass conc (RBC) 34.4 % Normal 33.0-37.0 [facility] MCV Auto Entitic volume (RBC) 95.3 fL Normal 82.0-100.0 [facility] Monocytes Auto #/vol (Bld) 1.0 10*3/uL Critically high 0.2-0.8 [facility] Monocytes/100 WBC Auto (Bld) 8.0 % Normal [facility] Neutrophils Auto #/vol (Bld) 10.1 10*3/uL Critically high 1.4-6.5 [facility] Neutrophils/100 WBC Auto (Bld) 83.7 % Normal [facility] Platelets Auto #/vol (Bld) 146 10*3/uL Normal 130-400 [facility] RBC Auto #/vol (Bld) 3.67 10*6/uL Low 4.20-5.40 [facility] WBC Auto #/vol (Bld) 12.1 10*3/uL Critically high 4.8-10.8 [facility] XR CHEST (2 VW)on 06-06-2018 XR CHEST [...] ATELECTASIS/SCARRING/PNEU MONITIS. Interpreted by:ANDRA Dominguezigned by:Joss Casas MD06/06/18inal result Normal [facility] Basic Metabolic Panel Reflex Mgon 06-05-2018 Anion gap 3 molar conc 11 mmol/L Normal 7-13 [facility] Calcium mass conc 8.9 mg/dL Normal 8.6-10.2 [facility] Chloride molar conc 105 mmol/L Normal 98-107 [facility] CO2 molar conc 25 mmol/L Normal 22-29 [facility] Creatinine mass conc 0.86 mg/dL Normal 0.50-0.90 [facility] GFR/1.73 sq M predicted among blacks MDRD vol rate/area (S/P/Bld) mL/min/{1.73_m2} Normal >60 [facility] Comment on above: Result Comment: >60 mL/min/1.73m2 EGFR, calc. for ages 18 and older using theMDRD formula (not corrected for weight), is valid for stablerenal function. GFR/1.73 sq M.predicted MDRD vol rate/area mL/min/{1.73_m2} Normal >60 [facility] Comment on above: Result Comment: >60 mL/min/1.73m2 EGFR, calc. for ages 18 and older using theMDRD formula (not corrected for weight), is valid for stablerenal function. Glucose mass conc 135 mg/dL Critically high 74-109 [facility] Potassium reflex Mg 4.0 mEq/L Normal 3.5-5.1 [facility] Sodium molar conc 141 mmol/L Normal 132-144 [facility] Urea nitrogen mass conc 13 mg/dL Normal 8-23 [facility] CBC With Platelet and Differ entialon 06-05-2018 RBC morphology finding Nom (Bld) Normal Normal [facility] Platelet Slide Review Normal Normal [facility] Basophils Auto #/vol (Bld) 0.1 10*3/uL Normal 0.0-0.2 [facility] Basophils/100 WBC Auto (Bld) 1.0 % Normal [facility] Eosinophils Auto #/vol (Bld) 0.0 10*3/uL Normal 0.0-0.7 [facility] Eosinophils/100 WBC Auto (Bld) 0.4 % Normal [facility] Erythrocyte distribution width Auto Ratio (RBC) 13.5 % Normal 11.5-14.5 [facility] Hematocrit Auto Volume Fraction (Bld) 40.5 % Normal 37.0-47.0 [facility] Hemoglobin mass conc (Bld) 13.7 g/dL Normal 12.0-16.0 [facility] Lymphocytes Auto #/vol (Bld) 2.0 10*3/uL Normal 1.0-4.8 [facility] Lymphocytes/100 WBC Auto (Bld) 15.5 % Normal [facility] MCH Auto Entitic mass (RBC) 32.4 pg Critically high 27.0-31.3 [facility] MCHC Auto mass conc (RBC) 33.9 % Normal 33.0-37.0 [facility] MCV Auto Entitic volume (RBC) 95.6 fL Normal 82.0-100.0 [facility] Monocytes Auto #/vol (Bld) 1.3 10*3/uL Critically high 0.2-0.8 [facility] Monocytes/100 WBC Auto (Bld) 10.1 % Normal [facility] Neutrophils Auto #/vol (Bld) 9.4 10*3/uL Critically high 1.4-6.5 [facility] Neutrophils/100 WBC Auto (Bld) 73.0 % Normal [facility] Platelets Auto #/vol (Bld) 168 10*3/uL Normal 130-400 [facility] RBC Auto #/vol (Bld) 4.24 10*6/uL Normal 4.20-5.40 [facility] WBC Auto #/vol (Bld) 12.9 10*3/uL Critically high 4.8-10.8 [facility] POCT Glucoseon 06-05-2018 Glucose mass conc 132 mg/dL Critically high 60-115 [facility] XR LUMBAR SPINE (2-3 VIEWS)o n 06-05-2018 [...] by:ANDRA Sotoigned by:Tanvir Power MD06/05/18inal result Normal [facility] Basic Metabolic Panel Reflex Mgon 06-04-2018 Anion gap 3 molar conc 13 mmol/L Normal 7-13 [facility] Calcium mass conc 9.1 mg/dL Normal 8.6-10.2 [facility] Chloride molar conc 103 mmol/L Normal 98-107 [facility] CO2 molar conc 23 mmol/L Normal 22-29 [facility] Creatinine mass conc 1.08 mg/dL Critically high 0.50-0.90 [facility] GFR/1.73 sq M predicted among blacks MDRD vol rate/area (S/P/Bld) mL/min/{1.73_m2} Normal >60 [facility] Comment on above: Result Comment: >60 mL/min/1.73m2 EGFR, calc. for ages 18 and older using theMDRD formula (not corrected for weight), is valid for stablerenal function. GFR/1.73 sq M.predicted MDRD vol rate/area 50.4 mL/min/{1.73_m2} Low >60 [facility] Comment on above: Result Comment: >60 mL/min/1.73m2 EGFR, calc. for ages 18 and older using theMDRD formula (not corrected for weight), is valid for stablerenal function. Glucose mass conc 164 mg/dL Critically high 74-109 [facility] Potassium reflex Mg 4.3 mEq/L Normal 3.5-5.1 [facility] Sodium molar conc 139 mmol/L Normal 132-144 [facility] Urea nitrogen mass conc 21 mg/dL Normal 8-23 [facility] CBC With Platelet No Differe ntialon 06-04-2018 Erythrocyte distribution width Auto Ratio (RBC) 13.4 % Normal 11.5-14.5 [facility] Hematocrit Auto Volume Fraction (Bld) 44.5 % Normal 37.0-47.0 [facility] Hemoglobin mass conc (Bld) 15.2 g/dL Normal 12.0-16.0 [facility] MCH Auto Entitic mass (RBC) 32.6 pg Critically high 27.0-31.3 [facility] MCHC Auto mass conc (RBC) 34.3 % Normal 33.0-37.0 [facility] MCV Auto Entitic volume (RBC) 95.1 fL Normal 82.0-100.0 [facility] Platelets Auto #/vol (Bld) 163 10*3/uL Normal 130-400 [facility] RBC Auto #/vol (Bld) 4.68 10*6/uL Normal 4.20-5.40 [facility] WBC Auto #/vol (Bld) 8.3 10*3/uL Normal 4.8-10.8 [facility] FLUORO FOR SURGICAL PROCEDUR ESon 06-04-2018 FLUORO [...] the soft tissue anterior to the spinal column.[place] bone intact.Please see procedural note for more detailed.IMPRESSION: INTRAOPERATIVE PLIF L3-L5.Interpreted by:ANDRA Dominguezigned by:Joss Casas MD06/04/18inal result Normal [facility] POCT Glucoseon 06-04-2018 Glucose mass conc 106 mg/dL Normal 60-115 [facility] POC Performed on ACCU-CHEK Normal [facility] Surgical Specimenon 06-04-20 Surgical Specimen Invalid Interpretation Code [facility] Comment on above: Result Comment: [place] [address] BXJUL SURGICAL PATHOLOGY REPORTPatient Name: MARLENI NGUYEN Accession No: [id number] Age Sex: 1950 Location: [place] [id number] No: [id number] Collected: 06/04/2018Med Rec No: [id number] Received: 06/05/2018Attend Phys: SHAKA DESIRAE Completed: 06/07/2018Perform [...] two cassettes after a brief decalcification. ALDWA/SCDANCPT: [id number] N0OQUKBDGIULIA ENGEL M.D. 06/07/2018 Electronically signed out by Page 1 of 1 Basic Metabolic Panelon 09- Anion gap 3 molar conc 14 mmol/L Critically high 7-13 [facility] Calcium mass conc 9.7 mg/dL Normal 8.6-10.2 [facility] Chloride molar conc 100 mmol/L Normal 98-107 [facility] CO2 molar conc 25 mmol/L Normal 22-29 [facility] Creatinine mass conc 1.15 mg/dL Critically high 0.50-0.90 [facility] GFR/1.73 sq M predicted among blacks MDRD vol rate/area (S/P/Bld) 56.7 mL/min/{1.73_m2} Low >60 [facility] Comment on above: Result Comment: >60 mL/min/1.73m2 EGFR, calc. for ages 18 and older using theMDRD formula (not corrected for weight), is valid for stablerenal function. GFR/1.73 sq M.predicted MDRD vol rate/area 46.8 mL/min/{1.73_m2} Low >60 [facility] Comment on above: Result Comment: >60 mL/min/1.73m2 EGFR, calc. for ages 18 and older using theMDRD formula (not corrected for weight), is valid for stablerenal function. Glucose mass conc 107 mg/dL Normal 74-109 [facility] Potassium molar conc 3.6 mmol/L Normal 3.5-5.1 [facility] Sodium molar conc 139 mmol/L Normal 132-144 [facility] Urea nitrogen mass conc 21 mg/dL Normal 8-23 [facility] CBC With Platelet No Differe ntialon 05-23-2018 Erythrocyte distribution width Auto Ratio (RBC) 13.5 % Normal 11.5-14.5 [facility] Hematocrit Auto Volume Fraction (Bld) 44.4 % Normal 37.0-47.0 [facility] Hemoglobin mass conc (Bld) 15.5 g/dL Normal 12.0-16.0 [facility] MCH Auto Entitic mass (RBC) 33.0 pg Critically high 27.0-31.3 [facility] MCHC Auto mass conc (RBC) 34.9 % Normal 33.0-37.0 [facility] MCV Auto Entitic volume (RBC) 94.4 fL Normal 82.0-100.0 [facility] Platelets Auto #/vol (Bld) 199 10*3/uL Normal 130-400 [facility] RBC Auto #/vol (Bld) 4.71 10*6/uL Normal 4.20-5.40 [facility] WBC Auto #/vol (Bld) 7.0 10*3/uL Normal 4.8-10.8 [facility] Culture, MRSA Screenon 05-23 Culture, MRSA Screen ORDERED BY: CLIFTON STONE: Nares Nasal COLLECTED: 05/23/18 11:37ANTIBIOTICS AT SERGIO.: RECEIVED : 05/23/18 11:37Culture, MRSA Screen FINAL 05/24/18 12:57 No MRSA isolated Normal [facility] Culture, Urineon 05-23-2018 Culture, Urine OR DERED BY: CLIFTON STONE: Urine Clean Catch COLLECTED: 05/23/18 12:44ANTIBIOTICS AT SERGIO.: RECEIVED : 05/23/18 12:44Culture, Urine FINAL 05/25/18 10:55 No growth 24 hours Normal [facility] Prothrombin Timeon 8 INR Coag RelTime (PPP) 1.1 {INR} Normal [facility] Comment on above: Result Comment: Neri mmended [...] Coag time (PPP) 11.0 s Normal 9.6-12.3 [facility] Type and Screen Capture 3 sc rn cellon 05-23-2018 Bilirubin mass conc PATIENT: WENDY ANDRADE LOC: [facility] BILL# : [id number] : 1950 SEX: FORDERED BY: CHASE Lua ORDERED : 05/23/2018 09:33 COLLECTED: 05/23/2018 11:41ORDER : [id number] RECEIVED : 05/23/2018 11:41 --------TEST NAME RESULT UNITS RANGES ABN FL STABORH Capture AB POS FAntibody 3 Cell Scrn Captu NEG F --- Normal [facility] Urinalysis, reflex to cultur winnie 05-23-2018 Urine Reflexed to Culture YES Normal [facility] Bilirubin Ql (U) Negative Normal Negative [facility] Clarity Nom (U) Clear Normal Clear [facility] Color Nom (U) Yellow Normal Straw/Emery [facility] Glucose Ql (U) Negative Normal Negative [facility] Hemoglobin Test strip Ql (U) Negative Normal Negative [facility] Ketones Ql (U) TRACE Abnormal Negative [facility] Leukocyte esterase Test strip Ql (U) TRACE Abnormal Negative [facility] Nitrite Test strip Ql (U) Negative Normal Negative [facility] pH Test strip (U) 6.0 [pH] Normal 5.0-9.0 [facility] Protein Test strip Ql (U) TRACE Abnormal Negative [facility] Specific gravity Relative Density (U) 1.010 Normal 1.005-1.03 [facility] Urobilinogen Test strip Qn (U) 0.2 {Dago'U}/dL Normal < 2.0 [facility] Urine Microscopicon 05-23-20 18 Casts LM.LPF #/area (Urine sed) 0-1 Hyaline Normal [facility] RBC Test strip #/vol (U) 0-2 Normal 0-2 [facility] Urine Amorphous 1+ Normal [facility] WBC #/vol (U) 3-5 Normal 0-5 [facility] XR SPINE ENTIRE (2-3 VIEWS)o n 05-23-2018 XR SPINE ENTIRE (2-3 VIEWS) PREOP NO DICTATION Interpreted by: Barb Wetzel MD Signed by: Barb Wetzel MD 06/08/18 Final result Normal [facility] Vital Signs Date Time Vital Sign Value Performing Clinician Faci lity 09-26-2022 12:59-0500 Blood Pressure Location Hawk COELHO [facility] 09-26-2022 12:59-0500 Diastolic blood pressure 76 mm[Hg] Hawk COELHO [facility] 09-26-2022 12:59-0500 Heart rate 78 /min Hawk COELHO [facility] 09-26-2022 12:59-0500 Respiratory rate 16 /min Hawk COELHO [facility] 09-26-2022 12:59-0500 Systolic blood pressure 124 mm[Hg] Hawk COELHO [facility] 03-04-2022 10:16-0400 Blood Pressure Location Hawk COELHO [facility] 03-04-2022 10:16-0400 Diastolic blood pressure 70 mm[Hg] Hawk COELHO [facility] 03-04-2022 10:16-0400 Heart rate 56 /min Hawk COELHO [facility] 03-04-2022 10:16-0400 Respiratory rate 16 /min Hawk COELHO [facility] 03-04-2022 10:16-0400 Systolic blood pressure 129 mm[Hg] Hawk COELHO [facility] En[facility]ters Encounter Date Encounter Type Care Provider Facility Start: 10-23-2023 ambulatory Hawk Rodriguez ty:DARREL [place] Start: 10-11-2023 End: 10-11-2023 ambulatory [facility] Start: 10-04-2023 End: 10-04-2023 ambulatory JACK VOGT Not Available Start: 07-24-2023 ambulatory Hawk Rodriguez ty:[facility] Start: 07-21-2023 End: 07-21-2023 ambulatory [facility] Start: 02-03-2023 End: 02-03-2023 ambulatory Referral Self Facility:[facility] Start: 01-18-2023 End: 01-19-2023 ambulatory CARLYN DODGE Facility:[facility] Start: 01-10-2023 End: 01-11-2023 ambulatory CARLYN DODGE Facility:[facility] Start: 01-04-2023 End: 01-04-2023 ambulatory [facility] Start: 09-26-2022 End: 09-27-2022 ambulatory Hawk COELHO Facility:[facility] Start: 09-26-2022 End: 09-26-2022 Patient encounter procedure Hawk COELHO [facility] Start: 09-07-2022 End: 09-08-2022 ambulatory SARAY MONCADA Facility:[facility] Start: 08-29-2022 End: 08-30-2022 ambulatory HAWK COELHO Facility:[facility] Start: 03-16-2022 End: 03-17-2022 ambulatory JOHN EPPERSON Facility:[facility] Start: 03-04-2022 End: 03-04-2022 Patient encounter procedure Hawk COELHO [facility] Start: 02-22-2022 End: 02-23-2022 ambulatory HAWK COELHO Facility:[facility] Start: 02-16-2022 End: 02-17-2022 ambulatory JOHN EPPERSON Facility:[facility] Start: 02-04-2022 End: 02-05-2022 ambulatory JOHN EPPERSON Facility:[facility] Start: 02-02-2022 End: 02-02-2022 Patient encounter procedure II [facility] Sin [facility] Start: 01-31-2022 End: 02-01-2022 ambulatory JOHNJERICHO EPPERSON Facility:[facility] Start: 06-04-2018 End: 06-07-2018 Evaluation and management of inpatient [facility] Start: 05-23-2018 End: 05-26-2018 Patient encounter [facility] Start: 05-23-2018 End: 05-28-2018 Patient encounter [facility] Procedures Date Procedure Procedure Detail Performing Clinician Start: 02-02-2022 Screening mammograph y of bilateral breasts II Jackmaricruz Vogt Work Phone: Start: 06-07-2018 INCENTIVE SPIROMETRY [...] DESIRAE Start: 06-05-2018 ACTIVITY TOLERATED B O DESRIAE Start: 06-05-2018 AMBULATE PATIENT SHAKA DESIRAE Start: [...] Start: 05-23-2018 EKG 12-LEAD SHAKA DESIRAE Cholecystectomy Hawk WILSON Colonoscopy Hawk COELHO Tonsillectomy Hawk COELHO Immunizations Immunization Date Immunization Notes Care Provider Juliane silverman 07-04-2022 influenza virus vaccine, unspecified formulation Hawk COELHO [facility] 07-04-2022 SARS-CoV-2 (COVID-19 ) [id number] Hawk LAQUITA [facility] 06-24-2021 influenza virus vaccine, unspecified formulation Hawk COELHO [facility] 06-24-2021 SARS-CoV-2 (COVID-19 ) mRNA BNT-162b2 vax Hawk COELHO [facility] Comment on above: Result Comment: 2022: [id number] 11-17-2020 SARS-CoV-2 (COVID-19 ) mRNA BNT-162b2 vax Hawk COELHO [facility] Comment on above: Result Comment: 2022: [id number] 10-27-2020 SARS-CoV-2 (COVID-19 ) mRNA BNT-162b2 vax Hawk COELHO [facility] Comment on above: Result Comment: 2022: [id number] 07-08-2020 influenza virus vaccine, unspecified formulation Hawk COELHO [facility] Payers Date Payer Category Payer Self-pay [id number] 2017 Medicare [id number] 1959 Medicare [id number] 1959 Private Health Insurance 101 [id number] 1950 Unknown [id number] 1950 Unknown [id number] 2.16.840.1.989590.3.579.2.593 1950 Unknown [id number] 2.16.840.1.536832.3.579.2.593 1950 Unknown [id number] 2.16.840.1.638718.3.579.2.593 1950 Unknown [id number] 2.16.840.1.822802.3.579.2.593 1950 Unknown [id number] 2.16.840.1.990227.3.579.2.593 1950 Unknown [id number] 2.16.840.1.089916.3.579.2.593 1950 Unknown [id number] 2.16.840.1.280467.3.579.2.593 1950 Unknown [id number] 2.16.840.1.935247.3.579.2.593 1950 Unknown [id number] 2.16.840.1.104305.3.579.2.593 1950 Unknown [id number] 2.16.840.1.883002.3.579.2.727 1950 Unknown [id number] 2.16.840.1.462268.3.579.2.727 1950 Unknown [id number] 2.16.840.1.628346.3.579.2.727 1950 Unknown [id number] 2.16.840.1.107329.3.579.2.1259 Medicare Medicare [id number] Unknown [place] BC/BS [id number] Unknown [id number] 2.16.840.1.266657.3.579.2.531 Social History Date Type Detail Facility Start: 03-25-2021 End: 09-26-2022 Tobacco smoking status NHIS Ex-smoker (finding) [facility] End: 10-11-2020 History of tobacco use [facility] Work Phone: Start: 1950 Sex Assigned At Female F [facility] Functional Status Date Assessment Result Facility 09-26-2022 Functional Status N/A [facility] 03-04-2022 Functional Status N/A [facility] Clinical Notes 03-04-2022 to 10-11-2023 Note Date & Type Note Facility 10-11-2023 Note [place] Cardiology - [facility] Subjective Marleni Nguyen is a 72 y.o. year old female patient being seen for follow up [facility] for LE edema. She was seen as inpatient consult by Lei Starks CNP. She saw PCP last week and he changed her from metoprolol to carvedilol. Patient states her insurance won't cover her new dose of 75mg bid (switched during admission). She says she has 2 weeks left of metoprolol and then will start carvedilol. Denies chest pain, SOB, palpitations, lightheadedness/syncope, and bleeding on Eliquis. She is currently not taking any diuretics due to urinary incontinence. 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 Coronary stent patent Pulmonary embolus (CMS/HCC) Hyperlipidemia Hypertensive disorder Osteoarthritis PVD (peripheral vascular disease) (CMS/HCC) Allergy to statin medication Anemia due to chronic blood loss 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 Atherosclerosis of coronary artery without angina pectoris Benign essential hypertension Carotid artery occlusion without infarction Celiac artery compression syndrome (CMS/HCC) Daytime somnolence Decreased estrogen level Degenerative lumbar spinal stenosis Depressive disorder Dissection of abdominal aorta (CMS/HCC) Fibrocystic breast changes Fibromyalgia Gastroesophageal reflux disease Generalized abdominal pain History of thromboembolism of vein Insomnia Diabetic renal disease (CMS/HCC) Left foot drop Lumbar radiculopathy Lumbosacral spondylosis [...] of both knees Pulmonary embolism with infarction (CMS/HCC) Statin intolerance Type 2 diabetes mellitus with other diabetic kidney complication (CMS/HCC) Tobacco dependence Stage 4 chronic kidney disease (CMS/HCC) Family History Problem Relation Name Age of [...] with history of CAD s/p CABG in 1998 [MAJANO to [...] generally feeling fatigue and tiredness. She has bilateral lower extremity edema but does not like to take diuretic therapy. She was admitted [facility] to the [facility] due to significant lower extremity edema. She underwent testing including arterial duplex ultrasound that suggested possible significant stenosis. She denies symptoms of ischemia in the legs. She uses a cane to ambulate. No stroke symptoms. She is limited by her knee pain and back pain. Review of Systems Constitutional: Positive for malaise/fatigue. Cardiovascular: Positive for leg swelling. Musculoskeletal: Positive for arthritis, back pain, joint pain and myalgias. Genitourinary: Posi (more content not included)... [facility] 07-21-2023 Note [place] Cardiology - [facility] Subjective Marleni Nguyen is a 72 y.o. [...] bypass graft Coronary stent patent Pulmonary embolus (CMS/HCC) Hyperlipidemia Hypertensive disorder Osteoarthritis PVD (peripheral vascular disease) (CMS/HCC) Allergy to statin medication Anemia due to chronic blood loss 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 Atherosclerosis of coronary artery without angina pectoris Benign essential hypertension Carotid artery occlusion without infarction Celiac artery compression syndrome (CMS/HCC) Daytime somnolence Decreased estrogen level Degenerative lumbar spinal stenosis Depressive disorder Dissection of abdominal aorta (CMS/HCC) Fibrocystic breast changes Fibromyalgia Gastroesophageal reflux disease Generalized abdominal pain History of thromboembolism of vein Insomnia Diabetic renal disease (CMS/HCC) Left foot drop Lumbar radiculopathy Lumbosacral spondylosis [...] of both knees Pulmonary embolism with infarction (CMS/HCC) Statin intolerance Type 2 diabetes mellitus with other diabetic kidney complication (CMS/HCC) Tobacco dependence Stage 4 chronic kidney disease (CMS/HCC) Family History Problem Relation Name Age of [...] with history of CAD s/p CABG in 1998 [MAJANO to [...] Exam Constitutional: Appearance: (more content not included)... [facility] 02-23-2023 Note Pre op risk stratifi cation for stem cell injections to knees. RCRI= 2 points Class III risk, 10.1% 30 day risk of , [place] or cardiac arrest. From a cardiology perspective she may proceed with planned low risk procedure. Will need to hold Eliquis 2-3 days prior to procedure. Carlyn Dodge NP Division of Cardiology, [facility]- [phone] Pager- [phone] Email- [email or web address] 01-04-2023 Note Ordered Carotid US t o assess level of stenosis- no neurological events or concerns noted. [facility] 01-04-2023 Note Lipid fairly stable with tricor and zetia Pt intolerant of statin, and PCSK9 inhibitor was not affordable [facility] 01-04-2023 Note Hypertension is well controlled 138/74 continue all medications [facility] 01-04-2023 Note stable [facility] 01-04-2023 Note Coronary artery dise ase is stable, no concerning symptoms Continue GDMT- ASA, zetia, metoprolol, tricor continue risk factor modifications- heart healthy diet, regular exercise as tolerated and continue all medications. [facility] 01-04-2023 Note Review of Systems Constitutional: Positive [...] due to her legs, knees, and back. [facility] 01-04-2023 Note [facility] PROGR ESS NOTE HPI: Marleni Nguyen is a 72 y.o. female here for routine f/U for CAD s/p CABG, States shortness of breath and leg swelling are no worse than usual. States that she went to [facility] yesterday to visit and did a lot [...] vessel. 4. Bilateral (more content not included)... [facility] 09-26-2022 Hospital Discharge instructions Patient Education 09/26/2022 13:45:35 Urinary Tract Infection, Adult, Ycxj-sp-Cvak Urinary Tract Infection, Adult A urinary tract [...] Follow these instructions at home: Medicines Take zply-nps-tssqjuy and prescription medicines only as told by [...] 02/20/2009 Document Revised: 08/22/2019 Document Reviewed: 03/14/2019 [employer] Patient Education 2020 [employer]. Follow Up Care 03/04/2022 10:43:44 With:LAQUITA BEAULIEU, Hawk Moya, URL Address: [facility] [address] , [place] [address]- [phone] When:Within 10 Month(s) Comments:CT AP w/ contrast [facility] 03-04-2022 Hospital Discharge instructions Patient Education 03/04/2022 [...] Treatment for this condition includes: Antibiotic medicine. Rseo-yhn-dvfudoc medicines to treat discomfort. Drinking enough water [...] Follow these instructions at home: Medicines Take prdx-uof-vljvzyq and prescription medicines only as told by [...] 06/14/2006 Document Revised: 08/22/2019 Document Reviewed: 03/14/2019 [employer] Patient Education 2020 [employer]. Follow Up Care 06/28/2021 14:36:35 With:LAQUITA BEAULIEU, Hawk Moya, URL Address: [facility] [address] , [place] [address]- [phone] When:09/03/2022 [facility] Evaluation + Plan note Future Appointments Appointment Date:08/29/2022 01:30:00 PM Scheduled Provider:Hawk COELHO MD Location:[facility] Appointment Type:URO Office Visit [facility] Evaluation + Plan note Future Appointments Appointment Date:07/24/2023 01:15:00 PM Scheduled Provider:Hawk COELHO MD Location:[facility] Appointment Type:URO Office Visit [facility] Evaluation note No assessment inform ation available [facility] Work Phone: Hospital course Narrative No data available for this section [facility] Progress note No data available for this section [facility] Summary Purpose Family History No Family History [...] section and content) DATE CREATED AUTHOR 07/06/2018 [facility] edical [place] DATE CREATED AUTHOR AUTHOR'S ORGANIZ ATION 01/26/2023 [facility] DATE CREATED AUTHOR AUTHOR'S ORGANIZ ATION 02/28/2023 [facility] DATE CREATED AUTHOR AUTHOR'S ORGANIZ ATION 07/30/2023 [facility] DATE CREATED AUTHOR AUTHOR'S ORGANIZ ATION 10/05/2023 [facility] dical Specialists [facility] DATE CREATED AUTHOR AUTHOR'S ORGANIZ ATION 10/12/2023 [facility] Care Teams (unrecognized sec tion and [...] BE BASED ON THE PRIMARY CLINICAL RECORDS. [employer] [facility]. provides no warranty or guarantee of the accuracy or completeness of information in this document.
--- NOTE | 2023-10-18 15:07 | US_ITS ---
[address] [address] Patient Name: LUPE NGUYEN MRN: [id number] date: 1950 Sex: F Assigned Patient Location: [place] Current Patient Location: [place] Accession/Order Number: [id number] Exam Date: 10/18/2023 15:08 Report Date: 10/18/2023 16:32 At the request of: SACHIN MATTHEWS Procedure: US venous doppler LE BI EXAM: US venous doppler LE BI HISTORY: R60.0 localized edema COMPARISON: None. TECHNIQUE: Grayscale, color and Doppler FINDINGS: Right leg: Thrombus: Echogenic thrombus identified in the mid small saphenous vein. No echogenic thrombus in the deep system. Flow: Decreased and absent flow corresponding to thrombus Compressibility: Normal compressibility of the deep system Augmentation: Normal compressibility of the deep system Left leg: Thrombus: None Flow: Normal Compressibility: Normal Augmentation: Normal Other: Subcutaneous edema of the calf US/US venous doppler LE BI IMPRESSION: Occlusive and nonocclusive superficial vein thrombus in the small saphenous vein No deep vein thrombus identified in the right or left leg Moderate left calf soft tissue swelling Electronically authenticated by: HENRY PARKER Date: 10/18/2023 16:32
== END 2023-10-18 15:04 | disposition home or self-care (01) ==
LOC: US 15:03
PROVIDERS: PCP Internal Medicine; Visit Provider Internal Medicine Interventional Cardiology
DX: R60.0 Localized edema (principal); I82.812 Embolism and thrombosis of superficial veins of left lower extremity
CPT/HCPCS: 93970

== ENCOUNTER 2023-12-04 13:42 | Outpatient (RCR) | payer MEDICARE, SELFPAY | END 2024-01-06 13:39 | disposition home or self-care (01) | LOC: PT 13:42 | PROVIDERS: PCP Internal Medicine; Visit Provider Orthopaedic Surgery | DX: M17.0 Bilateral primary osteoarthritis of knee (principal); R53.1 Weakness; I89.0 Lymphedema, not elsewhere classified | CPT/HCPCS: 97110; 97140; 97161 ==

== ENCOUNTER 2023-12-14 14:29 | Outpatient (RCR) | payer MEDICARE, SELFPAY | END 2024-01-18 16:44 | disposition home or self-care (01) | LOC: OT 14:29 | PROVIDERS: PCP Internal Medicine; Visit Provider Orthopaedic Surgery | DX: I89.0 Lymphedema, not elsewhere classified (principal) | CPT/HCPCS: 97140; 97166; 97530; 97535 ==

== ENCOUNTER 2024-05-10 14:14 | Outpatient (OUT) | payer MEDICARE, SELFPAY ==
--- NOTE | 2024-05-10 14:00 | CA_ITS ---
Patient Name: LUPE NGUYEN MR#: [id number] : 1950 Exam Date: 05/10/2024 Ordering Doctor: DR SACHIN AGUILERA M.D. ECHOCARDIOGRAM REPORT PROCEDURE: CA ECHO DOPPLER COMPLETE INDICATIONS: Aortic regurgitation, hypertension, CABGx3, cardiac stents COMPARISON: None. DESCRIPTION: COMPLETE ECHOCARDIOGRAM Real-time transthoracic echocardiography with 2D, M-mode, spectral and color flow Doppler performed. QUALITY: Technical quality was good. LEFT VENTRICLE: Normal chamber size. Thickened septal wall. Moderate concentric left ventricular hypertrophy. Normal systolic function. LV EF: Normal left ventricular ejection fraction, (55-60%). DIASTOLIC: Diastolic function is indeterminate. ATRIAL SEPTUM: Color Doppler flow is seen with [id number] shunting, possible small ASD vs PFO LEFT ATRIUM: Moderate dilatation. RIGHT ATRIUM: Moderate dilatation. RIGHT VENTRICLE: Mild dilatation. Mildly decreased right ventricular systolic function. TRICUSPID VALVE: Normal mobility and thickness. No stenosis with mild regurgitation. Doppler studies reveal mildly (35-45) elevated right sided pressures. RVSP 36 mmHg MITRAL VALVE: Normal mobility and thickness. No evidence of mitral valve stenosis. There is no mitral annular calcification. Trivial mitral regurgitation. AORTIC VALVE: Normal trileaflet appearance. Mildly calcified aortic valve. Normal leaflet mobility. No evidence of aortic valve stenosis. Mild to moderate aortic regurgitation. AORTIC ROOT: Normal diameter and appearance. Ascending aorta is normal in size. PULMONIC VALVE: Normal thickness and mobility. No stenosis. Trivial regurgitation. PERICARDIUM: No evidence of pericardial effusion. IVC: Collapses with inspirations. PLEURA: CONCLUSION: 1. Moderate concentric left ventricular hypertrophy with normal systolic function. LVEF is estimated at 55 to 60%. 2. The right ventricle is mildly dilated and exhibits mildly reduced systolic function. 3. Moderate biatrial dilatation. 4. Mild to moderate aortic regurgitation. 5. Mild tricuspid regurgitation. 6. Mildly elevated right-sided pressures. 7. Possible small interatrial septal defect versus PFO. Adult Echocardiography Procedure Report Left Ventricle LVEDD (3.7 - 5.6 cm): 4.94 cm LVESD (2.2 - 4.0 cm): 2.81 cm LVIVS thickness (0.6 - 1.2 cm): 1.78 cm LVPW thickness (0.5 - 1.0 cm): 1.27 cm e': 0.09 m/s E - e': 7.96 LVOT Max Gradient: 2.34 mm[Hg] LVOT Area (cm2): 0.76 m/s Peak Velocity (LVOT): 0.76 m/s Mean Velocity (LVOT): 0.50 m/s LVOT Diameter 2.29 cm Left Atrium LA Volume Index (2D A2C): 50.06 ml/m2 Left Atrium Systolic Dimension: 4.92 cm Mitral Valve MV E to A Ratio: 0.92 Mitral Valve A-Wave Peak Velocity: 0.75 m/s Mitral Valve E-Wave Peak Velocity: 0.69 m/s Right Ventricle Aorta AO Root Diam: 3.27 cm Ascending Ao Diam: 3.17 cm Aortic Valve AoV Area (Peak Aakash): 2.23 cm2, 2.23 cm2 AoV Area (VTI): 2.66 cm2, 2.66 cm2 Peak Velocity(Antegrade Flow): 1.41 m/s Peak Gradient(Antegrade Flow): 7.91 mm[Hg] Mean Velocity(Antegrade Flow): 0.88 m/s Mean Gradient(Antegrade Flow): 3.58 mm[Hg] Velocity Time Integral: 31.57 cm Tricuspid Valve Peak Velocity (Regurgitant Flow): 2.87 m/s Pulmonic Valve Mean Gradient: 2.33 mm[Hg] Mean Velocity: 0.72 m/s Peak Velocity: 1.06 m/s, 0.96 m/s Peak Gradient: 3.72 mm[Hg], 4.47 mm[Hg] Right Atrium Right Atrium Systolic Pressure: 72.99 ml, 72.99 ml Dictated by: Sachin Aguilera M.D. on 05/10/2024 at 16:57 Approved by: Sachin Aguilera M.D. on 05/10/2024 at 17:03
== END 2024-05-10 14:15 | disposition home or self-care (01) ==
LOC: CARD 14:15
PROVIDERS: PCP Internal Medicine; Visit Provider Internal Medicine Interventional Cardiology
DX: I35.1 Nonrheumatic aortic (valve) insufficiency (principal); R60.0 Localized edema
CPT/HCPCS: 93306

== ENCOUNTER 2024-09-13 13:14 | Outpatient (OUT) | payer MEDICARE, SELFPAY ==
--- OUTSIDE RECORDS SUMMARY | 2024-09-13 13:27 | XMS_ITS | CCD ---
Author Organization [facility] Care Team Providers Care Button Tufting Machine Operator Name Role Phone DESIRAE, SHAKA H. Unavailable [...] EPPERSON Consulting Unavailable JOHN EPPERSON Attending Unavailable KRISHAN EPPERSONINDA Admitting Unavailable JOHN EPPERSON Consulting Unavailable DR [...] COELHO Admitting Unavailable RYLAN HOPKINS Consulting Unavailable DAR, CARLYN Attending Unavailable DAR CARLYN Admitting Unavailable DR JACK VOGT Primary Care Unavailable RADHA, DR TONYA Moya Consulting Unavailable DAR, CARLYN Consulting Unavailable COELHOALFREDO Consulting Unavailable FRANCHESCA, DR DOSS Primary Care Unavailable ALFREDO COELHO Attending Unavailable COELHOALFREDO Admitting Unavailable WEST, DR HENRY Mosley Consulting Unavailable DAR, CARLYN Attending Unavailable DAR, CARLYN Admitting Unavailable DAR, CARLYN Consulting Unavailable FRANCHESCA, DR DOSS Primary Care Unavailable JOHN EPPERSON Attending Unavailable ZHOU, JOHN Admitting Unavailable FRANCHESCA, DR DOSS Primary Care Unavailable RADHA, DR TONYA Moya Consulting Unavailable ZHOU, JOHN Consulting Unavailable JERRICA HOLDEN Consulting Unavailable THOMAS Vogt Primary Care Provider [phone] MD Kevin Hamilton II Attending Provider Self, Referral Attending Provider Unavailable Kevin Hamilton II Admitting Unavailbettye Hamilton II, Kevin Valdez Attending Unavailabl e Jack Vogt Primary Care Unavailable Self, Referral Admitting Unavailable Self, Referral Attending Unavailable Jack Vogt Primary Care Unavailable JACK VOGT Attending Unavailable JACK VOGT Attending Unavailable VOGTJACK Attending Unavailable VOGTJACK Attending Unavailable VOGTJACK Attending Unavailable MOUKARBEL, SACHIN Attending Unavailable MOUKARBEL, SACHIN Attending Unavailable MOUKARBEL, SACHIN Attending Unavailable COELHOAlfredo Attending Unavailable Orzech, Maria Luisa Pritchard Attending Unavailable Orzech, Maria Luisa Pritchard Attending Unavailable COELHOAlfredo Attending Unavailable Allergies Allergy Classification Reported Allergen(s) Allergy Type Date of Onset Reaction(s) Facility Iodine (and Iodine containting drugs) (2 sources) Iodine; Translations: [Iodine] Drug Allergy 4 Eruption of skin (disorder) [facility] Pneumococcal vaccine (1 source) Pneumococcal vaccine Drug Allergy 4 Edema [facility] Shellfish (1 source) Shellfish; Translations: [shellfish] Food Allergy Unknown (qualifier value) [facility] varenicline (1 source) varenicline Drug Allergy 4 Vomiting [facility] (8 sources) Iodine; Translations: [Iodine] Drug Allergy 0 Eruption of skin (disorder) [facility] (2 sources) Pneumococcal vaccine; Translations: [pneumococcal vaccine] Drug Allergy 1 [facility] (3 sources) varenicline; Translations: [varenicline] Drug Allergy 1 Vomiting [facility] (3 sources) Gxnqriq-ELQ-XdG Reductase Inhibitor; Translations: [Wtltiri-PPM-SeP Reductase Inhibitor] Allergy to substance 1 Unknown Reaction [facility] (5 sources) HMG-CoA reductase inhibitor; Translations: [statins] Drug allergy Unknown (qualifier value) [facility] (4 sources) Shellfish; Translations: [shellfish] Drug allergy Unknown (qualifier value) [facility] (2 sources) black walnut pollen extract; Translations: [ZLODFJY-HBU-YAT REDUCTASE INHIBITORS] Drug Allergy 0 [facility] (1 source) varenicline Drug Allergy 0 [facility] (1 source) Pneumovax 23 Drug allergy (disorder) 0 [facility] (1 source) Contrast media; Translations: [RED DYE] Propensity to adverse reactions to drug (disorder) 2 [facility] (1 source) nickel; Translations: [NICKEL] Drug Allergy 8 [facility] (1 source) Pneumococcal vaccine; Translations: [PNEUMOCOCCAL 23-CRUZ PS VACCINE] Drug Allergy 1 [facility] (1 source) Shellfish; Translations: [SHELLFISH DERIVED] Propensity to adverse reactions to drug (disorder) 8 [facility] Medications Current Medications Medication Drug Class(es) Dates Sig (Normalized) Sig (Original) acetaminophen 325 mg / HYDROcodone bitartrate 5 mg oral tablet (3 sources) Opioid Agonist Start: 09-26-2022 acetaminophen-hydr ocodone [...] Status: Ordered apixaban 2.5 mg oral tablet (6 sources) Factor Xa Inhibitor Start: 03-04-2022 Eliquis 2. 5 mg oral tablet Refills(s) 0 Start Date: 03/04/22 Status: Ordered Start: 03-24-2021 take 1 tablet by gloria th twice daily Apixaban (Eliquis) 5 mg tablet Active 5 MG PO Twice daily March 24, 2021 10:33pm aspirin 81 mg delayed release oral tablet (6 sources) Platelet Aggregation Inhibitor, Nonsteroidal Anti-inflammatory Drug Start: 03-04-2022 take 1 mg by mouth once daily aspirin 81 mg Oral EC Tab mg tab(s), Oral, Daily, Refills(s) 0 Start Date: 03/04/22 Status: Ordered Start: 03-24-2021 take 81 mg by mouth once daily Aspirin Active 81 MG PO Daily March 24, 2021 10:38pm carvedilol 12.5 mg oral tablet (2 sources) alpha-Adrenergic Genoveva, beta-Adrenergic Genoveva Start: 10-23-2023 carvedilol 12.5 mg Tab Refills(s) 0 Start Date: 10/23/23 Status: Ordered cloNIDine hydrochloride 0.1 mg oral tablet (1 source) Central alpha-2 Adrenergic Agonist Start: 03-19-2024 cloNIDine 0.1 mg tab 0.1 mg = 1 tab(s) Start Date: 03/19/24 Status: Ordered diclofenac sodium 0.01 mg/mg topical gel (1 source) Nonsteroidal Anti-inflammatory Drug Start: 11-23-2023 Diclofenac Sodium Active 2 GM TOPICAL as directed 1 November 23, 2023 1:00am DULoxetine 30 mg delayed release oral capsule (4 sources) Serotonin and Norepinephrine Reuptake Inhibitor Start: 03-04-2022 DULoxetine 30 mg Cap-EC Refills(s) 0 Start Date: 03/04/22 Status: Ordered Start: 03-04-2022 DULoxetine 60 mg Cap-EC Refills(s) 0 Start Date: 03/04/22 Status: Ordered Start: 03-24-2021 take 90 mg by mouth at bedtime Duloxetine Active 90 MG PO Bedtime March 24, 2021 10:33pm DULoxetine 30 mg Cap-EC (3 sources) Start: 03-04-2022 DULoxetine 30 mg Cap-EC Refills(s) 0 Start Date: 03/04/22 Status: Ordered DULoxetine 60 mg Cap-EC (3 sources) Start: 03-04-2022 DULoxetine 60 mg Cap-EC Refills(s) 0 Start Date: 03/04/22 Status: Ordered ezetimibe 10 mg oral tablet (6 sources) Dietary Cholesterol Absorption Inhibitor Start: 03-24-2021 ezetimibe 10 mg Tab Refills(s) 0 Start Date: 03/04/22 Status: Ordered fenofibrate 145 mg oral tablet (2 sources) Peroxisome Proliferator Receptor alpha Agonist Start: 03-24-2021 take 145 mg by mouth once daily Fenofibrate Nanocrystallized Active 145 MG PO Daily March 24, 2021 10:38pm furosemide 40 mg oral tablet (4 sources) Loop Diuretic Start: 03-04-2022 furosemide 40 mg Tab Refills(s) 0 Start Date: 03/04/22 Status: Ordered Start: 03-24-2021 take 40 mg by mouth once daily Furosemide Active 40 MG PO Daily March 24, 2021 10:33pm 12 hr guaiFENesin 600 mg extended release oral tablet (2 sources) Start: 03-27-2021 End: 11-23-2023 take 2 tablets by mouth twice daily, then take 1 tablet by mouth every twelve hours Guaifenesin (Mucinex) 600 mg Tablet Extended Release 12hr Active 1200 MG PO Twice daily 0 March 27, 2021 11:32am hydrALAZINE hydrochloride 25 mg oral tablet (4 sources) Arteriolar Vasodilator Start: 03-04-2022 hydrALAZINE 25 mg Tab Refills(s) 0 Start Date: 03/04/22 Status: Ordered 24 hr isosorbide mononitrate 60 mg extended release oral tablet (10 sources) Nitrate Vasodilator Start: 03-24-2021 isosorbide mononitrate 60 mg ER Tab Refills(s) 0 Start Date: 03/04/22 Status: Ordered meloxicam 15 mg oral tablet (2 sources) Nonsteroidal Anti-inflammatory Drug Start: 03-19-2024 meloxicam 15 mg Tab 15 mg = 1 tab(s) Start Date: 03/19/24 Status: Ordered Start: 11-23-2023 take 15 mg by mouth once daily Meloxicam Active 15 MG PO daily November 23, 2023 1:00am Metoprolol (6 sources) beta-Adrenergic Genoveva Start: 03-04-2022 Metopr olol tartrate 50 mg Tab Refills(s) 0 Start Date: 03/04/22 Status: Ordered Start: 03-24-2021 take 50 mg by mouth twice piedad y Metoprolol Tartrate Active 50 MG PO Twice daily March 24, 2021 10:33pm 24 hr NIFEdipine 90 mg extended release oral tablet (6 sources) Dihydropyridine Calcium Channel Genoveva Start: 03-04-2022 NIFEdipine (Eqv-Procardia XL) 90 mg oral tablet, extended release Refills(s) 0 Start Date: 03/04/22 Status: Ordered Start: 03-24-2021 take 90 mg by mouth once daily Nifedipine Active 90 MG PO Daily March 24, 2021 10:33pm nitroglycerin 0.4 mg/actuat mucosal spray (4 sources) Nitrate Vasodilator Start: 03-04-2022 nitroglycerin 0.4 mg SubL [place] mg spray(s), SubLingual, q5min, Refills(s) 0 Start Date: 03/04/22 Status: Ordered 24 hr oxybutynin chloride 10 mg extended release oral tablet (2 sources) Cholinergic Muscarinic Antagonist Start: 10-23-2023 take 1 tablet by mouth once daily oxybutynin 10 mg ER Tab 10 mg = 1 tab(s), Oral, Daily, # 90 tab(s), Refills(s) 3, Pharmacy: [facility]/pharmacy #[id number], 163, cm, 10/23/23 12:33:00 EST, Height/Length Dosing, 81.5, kg, 10/23/23 12:33:00 EST, Weight Dosing Start Date: 10/23/23 Status: Ordered pantoprazole 40 mg delayed release oral tablet (6 sources) Proton Pump Inhibitor Start: 03-24-[address] Tab Refills(s) 0 Start Date: 03/04/22 Status: Ordered pregabalin 75 mg oral capsule (6 sources) Start: 03-24-2021 pregabalin 75 mg Cap Refills(s) 0 Start Date: 03/04/22 Status: Ordered tiZANidine 4 mg oral tablet (4 sources) Central alpha-2 Adrenergic Agonist Start: 03-04-2022 tiZANidine 4 mg Tab Refills(s) 0 Start Date: 03/04/22 Status: Ordered valsartan 320 mg oral tablet (6 sources) Angiotensin 2 Receptor Genoveva Start: 03-24-2021 valsartan 320 mg Tab Refills(s) 0 Start Date: 03/04/22 Status: Ordered zolpidem tartrate 10 mg oral tablet (6 sources) gamma-Aminobutyric Acid-ergic Agonist Start: 03-24-2021 zolpidem 10 mg oral tablet Refills(s) 0 Start Date: 03/04/22 Status: Ordered Completed/Discontinued Medications Medication Drug Class(es) Dates Sig (Normalized) Sig (Original) ondansetron 4 mg oral film (2 sources) Serotonin-3 Receptor Antagonist Start: 03-24-2021 End: 03-27-2021 take 4 mg by mouth every eight hours Ondansetron Discontinued 4 MG PO Q8H March 24, 2021 10:38pm March 27, 2021 11:37am Start: 03-24-2021 End: 03-27-2021 take 4 mg by mouth every eight hours Ondansetron Discontinued 4 MG PO Q8H March 24, 2021 12:00am March 27, 2021 11:37am Problems Active Problems Problem Classification Problem Date Documented Da te Episodic/Chronic Acute and unspecified renal failure (2 sources) Injury of kidney; Translations: [Acute kidney failure, unspecified] 03-27-2021 Episodic Acute myocardial infarction (4 sources) Myocardial infarction 06-28-2021 Chronic Chronic kidney disease (2 sources) Chronic kidney disease, stage 4 (severe); Translations: [Chronic kidney disease, stage 4 (severe)] Onset: 3 Chronic Chronic kidney disease (2 sources) Chronic kidney disease; Translations: [Chronic kidney disease, stage 3b] Onset: 3 Complication of device; implant or graft (1 source) Atherosclerosis of coronary artery bypass graft(s) without angina pectoris; Translations: [ATS CA BP GRAFT NO ANGINA PECTORIS] Onset: 3 Chronic Coronary atherosclerosis and other heart disease (7 sources) Atherosclerotic heart disease of [place] coronary artery without angina pectoris; Translations: [ASHD [place] CA W/O ANGINA PECTORIS] Onset: 2 Chronic Deficiency and other anemia (2 sources) Anemia; Translations: [Anemia, unspecified] 03-24-2021 Episodic Disorders of lipid metabolism (7 sources) Hyperlipidemia; Translations: [Mixed hyperlipidemia] Onset: 2 06-28-2021 Chronic Essential hypertension (11 sources) Hypertensive disorder; Translations: [Essential (primary) hypertension] Onset: 2 06-28-2021 Chronic Gastrointestinal hemorrhage (2 sources) Lower gastrointestinal hemorrhage; Translations: [Gastrointestinal hemorrhage, unspecified] 03-24-2021 Episodic Genitourinary symptoms and ill-defined conditions (4 sources) Urge incontinence; Translations: [Urge incontinence of urine] Onset: 4 Chronic Heart valve disorders (3 sources) Nonrheumatic aortic (valve) insufficiency; Translations: [NONRHEUMATIC AORTIC INSUFFICIENCY] Onset: 2 Chronic Malaise and fatigue (2 sources) Asthenia; Translations: [Weakness] 11-23-2023 Episodic Menopausal disorders (4 sources) Other primary ovarian failure; Translations: [OTHER PRIMARY OVARIAN FAILURE] Onset: 2 Chronic Occlusion or stenosis of precerebral arteries (1 source) Occlusion and stenosis of bilateral carotid arteries; Translations: [OCCLUSION AND STENOS TEJ CAROTID ART] Onset: 3 Chronic Osteoarthritis (2 sources) Primary gonarthrosis, bilateral; Translations: [Bilateral primary osteoarthritis of knee] 11-23-2023 Chronic Osteoporosis (4 sources) Osteoporosis; Translations: [Age-related osteoporosis without current pathological fracture] Onset: 2 09-26-2022 Chronic Other acquired deformities (2 sources) Spondylolisthesis, lumbar region; Translations: [Spondylolisthesis, lumbar region] Onset: 8 Episodic Other acquired deformities (1 source) Spondylolisthesis, lumbosacral region; Translations: [Spondylolisthesis, lumbosacral region] Onset: 8 Episodic Other aftercare (3 sources) Long-term current use of anticoagulant; Translations: [residential (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] Onset: 3 Episodic Other and ill-defined heart disease (4 sources) Heart disease 06-28-2021 Chronic Other diseases of kidney and ureters (4 sources) Disorder of kidney and/or ureter; Translations: [Disorder of kidney and ureter, unspecified] Onset: 2 Episodic Other diseases of kidney and ureters (4 sources) Kidney lesion 06-28-2021 Episodic Other diseases of veins and lymphatics (1 source) Lymphedema; Translations: [Lymphedema, not elsewhere classified] 11-23-2023 Chronic Other diseases of veins and lymphatics (1 source) Lymphedema, not elsewhere classified; Translations: [Other lymphedema] 11-23-2023 Chronic Other non-traumatic joint disorders (1 source) Pain in left knee; Translations: [Left knee pain] 11-22-2023 Episodic Other screening for suspected conditions (not mental disorders or infectious disease) (1 source) Encounter for screening mammogram for malignant neoplasm of breast; Translations: [Encounter for screening mammogram for malignant neoplasm of breast] Onset: 4 Episodic Peripheral and visceral atherosclerosis (2 sources) Atherosclerosis of renal artery; Translations: [Atherosclerosis of renal artery] Onset: 3 Chronic Residual codes; unclassified (1 source) Poor oral hygiene; Translations: [Other specified personal risk factors, not elsewhere classified] 11-23-2023 Episodic Residual codes; unclassified (1 source) Nicotine user; Translations: [Tobacco use] 11-23-2023 Episodic Residual codes; unclassified (1 source) Tobacco use; Translations: [Tobacco use disorder] 11-23-2023 Episodic Residual codes; unclassified (1 source) Other specified personal risk factors, not elsewhere classified; Translations: [Other specified disorders of the teeth and supporting structures] 11-23-2023 Episodic Spondylosis; intervertebral disc disorders; other back problems (2 sources) Spondylosis; intervertebral disc disorders; other back problems; Translations: [L5-S1 RADICULOPATHY, SPONDYLOSIS] Onset: 8 Unclassified (3 sources) 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 09-26-2022 Unclassified (1 source) Pain in left knee; Translations: [Pain in left knee] Onset: 4 Past or Other Problems Problem Classification Problem Date Documented Da te Episodic/Chronic Coronary atherosclerosis and other heart disease (4 sources) Presence of aortocoronary bypass graft; Translations: [Presence of coronary angioplasty implant and graft] Onset: 07-21-2023 Episodic Other aftercare (1 source) residential (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; Translations: [INTERMEDIATE CURRNT USE ANTICOAGULANTS] Onset: 02-10-2022 Episodic Other [...] Translations: [SHORTNESS OF BREATH] Onset: 01-31-2022 Episodic Phlebitis; thrombophlebitis and thromboembolism (2 sources) Personal history of other venous thrombosis and embolism; Translations: [Personal history of other venous thrombosis and embolism] Onset: 07-21-2023 Episodic Pulmonary heart disease (1 source) Personal history of pulmonary embolism; Translations: [PERSONAL HISTORY PULMONARY EMBOLISM] Onset: 02-10-2022 Episodic Residual codes; unclassified (3 sources) Localized edema; Translations: [LOCALIZED EDEMA] Onset: 02-03-2022 Episodic Results Test Name Value Interpretation Reference Range Facility Reminderson 08-27-2024 Reminders Reminders From: MIGUEL Thomson APRN, [facility] To: DARREL - Tayler Coelho; Sent: 03/19/2024 15:06:49 EDT Show up: 08/18/2024 15:06:00 EST Subject: Reminder Message Reminder Message MRI abdomen with and without IV contrast for kidney lesion surveillance. Follow-up appointment scheduled September Order for MRI and accompanying paperwork faxed to [facility] Central scheduling today. They will call pt to schedule. Normal [facility] 36on 05-21-2024 36 Regarding echo resul t from 05/10/2024: MD Kari Castellano MA Echo was ok, follow up in 1 year. Patient informed. Normal [facility] Office Visiton 04-24-2024 Follow-up visit [id number] Lauren Nguyen Nigel 1950 F Date Provider Department Center 04/24/2024 SACHIN KEITH MO Breaux Family History Problem Relation Age of Onset Coronary artery disease Mother Stroke Mother Coronary artery disease Father Ovarian cancer Sister Family Status - Relation Status Age at Mother Father Sister Level of Service:65668 CT OFFICE/OUTPATIENT ESTABLISHED MOD MDM 30 MIN Normal [facility] Urology Office/Clinic Noteon 03-19-2024 Urology Office/Clinic Note Urology Office/Clinic Note Chief Complaint 3 month F/U HPI Staff PRW pt. 3m to starting Oxybutynin 10mg ER qd therapy. DX: Kidney Lesion & Urge Incontinence. Dysuria: no Incomplete bladder emptying: no, PVR 0mL Hematuria: no Frequency: every 2 hours Urgency: mild Nocturia: no Stream: good stream Post void dripping: no Wearing pads/ Depends: no Urge incontinence: no Stress incontinence: no Incontinence without Sensory Awareness: no Abdominal pain: no Flank pain: no History of Present Illness I have reviewed and verified the staff HPI to be accurate for this encounter. Portions of this record may have been created with voice recognition artificial intelligence software, specifically [employer], [employer] and or [employer]. Substitutions may have occurred due to the inherent limitations of voice recognition and artificial intelligence software. Review of Systems PHQ Score Initial Depression Screen Score: 0 SCORE Physical Exam Vitals & Measurements HT: 64 in HT: 163 cm WT: 81.5 kg WT: 179.3 lb BMI: 30.67 General: Well developed, well nourished, in no acute distress. Genitourinary: Flank Pain: none. Bladder: nonpalpable. Assessment/Plan 1. Urge incontinence (N39.41: Urge incontinence) Started on oxybutynin 10 mg ER at prior office visit, tolerating well that bothersome side effects. She does admit to having dry eyes, dry mouth, which she is able to treat symptomatically at this time. Patient states she is no longer wearing a pad, not leaking or having full incontinence episodes at this time. She continues to feel empty after voiding. She is tolerating PVR today 0 -Continue oxybutynin, call for refills Ordered: [id number] Measure Post Void residual urine and/or bladder capacity by US- non-imaging 2. Kidney lesion (N28.9: Disorder of kidney and ureter, unspecified) MRI abdomen 08/29/22 - bilateral 5mm hyperdense renal cysts and bilateral benign angiomyolipomas, measuring up to 11mm; no hydronephrosis. [1] MRI abdomen 07/24/23 [facility] - a hemorrhagic/proteinaceous exophytic cyst at RUP involving anterolateral cortex, measures 5 x 10 mm. An intracortical similar appearing lesion involving anterior and medical cortex upper pole L kidney, measures 9 x 10 mm. A small exophytic cyst involving L posterior cortex near inferior pole measures 7mm and intracortical cyst involving posterior cortex upper pole R kidney measures 6mm. Intracortical angiolipoma within posterior cortex at midpole of R kidney and similar midpole appearing lesion on L within posterior cortex measures 7mm. No hydro.[2] Patient with allergy to CT contrast, monitoring with MRI with and without con -Follow-up 6 months for continued monitoring 3. 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 Medications aspirin 81 mg Oral EC Tab, Oral, Daily carvedilol 12.5 mg Tab cloNIDine 0.1 mg tab, 0.1 mg= 1 tab(s) DULoxetine 30 mg Cap-EC DULoxetine 60 mg Cap-EC Eliquis 2.5 mg oral tablet ezetimibe 10 mg Tab hydrALAZINE 25 mg Tab isosorbide mononitrate 60 mg ER Tab isosorbide mononitrate 60 mg ER Tab meloxicam 15 mg Tab, 15 mg= 1 tab(s) Metoprolol tartrate 50 mg Tab NIFEdipine (Eqv-Procardia XL) 90 mg oral tablet, extended release nitroglycerin 0.4 mg SubL [place], SubLingual, q5min oxybutynin 10 mg ER Tab, 10 mg= 1 tab(s), Oral, Daily, 3 refills Pantoprazole [address] Tab pregabalin 75 mg Cap tiZANidine 4 mg Tab valsartan 320 mg Tab zolpidem 10 mg oral tablet Allergies iodine (Rash) shellfish (Unknown) statins (Unknown) Social History Tobacco Former smoker, quit more than 30 days ago Tobacco Use:. Never Smokeless Tobacco Use:. Household tobacco concerns: No. Yes, 03/19/2024 Family History Cancer: Sister and Brother. Heart disease: Mother and Father. Hypertension: Mother, Father, Sister and Brother. Immunizations Vaccine Date Status Comments influenza virus vaccine, inactivated 07/04/2022 Recorded SARS-CoV-2 (COVID-19) [id number] 07/04/2022 Recorded influenza virus vaccine, inactivated 06/24/2021 Recorded SARS-CoV-2 (COVID-19) mRNA BNT-162b2 vax 06/24/2021 Recorded 2022-09-26: TPV70 SARS-CoV-2 (COVID-19) mRNA BNT-162b2 vax 11/17/2020 Recorded 2022-09-26: TPV70 SARS-CoV-2 (COVID-19) mRNA BNT-162b2 vax 10/27/2020 Recorded 2022-09-26: TPV70 influenza virus vaccine, inactivated 07/08/2020 Recorded [1] URO- review MRI, start Oxybutynin; RONALD BEAULIEU (more content not included)... Normal [facility] Comment on above: Result Comment: Elec tronically Signed By: MIGUEL Thomson APRN, [facility]\.br\Date and Time Signed: 03/19/24 15:09 EDT MM screening mammo BI w/CADo n 02-05-2024 MM screening mammo BI w/CAD [facility] [place] [address] Mammography Report Signed Patient: Marleni Nguyen MR#: [id number] : 1950 Acct:[id number] Age/Sex: 73 / F ADM Date: 02/05/24 Loc: ME Room: Type: [facility] Attending Dr: Referral Self Copies to: Jack Vogt II, MD SELF,REFERRAL Ordering Provider: SELF,REFERRAL Date of Service: 02/05/24 MM/MM screening mammo BI w/CAD: SCREENING CLINICAL DATA: Screening for malignancy. SCREENING MAMMOGRAM - FULL FIELD DIGITAL WITH TOMOSYNTHESIS AND CAD COMPARISON:Mammograms dating back to 2019 Tomosynthesis craniocaudal and mediolateral oblique views of both breasts were obtained using low- dose digital technique. This examination was reviewed with the aid of CAD. FINDINGS: The breast tissue is composed of scattered [...] mammogram. Impression dictated by: Andrew Moe Jr., D.OGenet02/05/2024 3:52 PM Dictation Location: [facility] Transcribed By: [facility] 02/05/24 1552 Dictated By: Andrew Moe Jr, DO 02/05/24 1524 Signed By: 02/05/24 1552 Normal [facility] XR knee BI 4Von 11-23-2023 XR knee BI 4V [facility] [facility] [place] [address] XRay Report Signed Patient: Marleni Nguyen MR#: [id number] : 1950 Acct:[id number] Age/Sex: 73 / F ADM Date: 11/23/23 Loc: [facility] Room: Type: [facility] Attending Dr: Kevin Hamilton II, MD Copies to: Kevin Hamilton MD Ordering Provider: Kevin Hamilton MD Date of Service: 11/23/23 XR/XR knee BI 4V: M25.562 - Pain in left knee ([id number]) XR/XR pelvis 1-2V: M25.562 - Pain in left knee AP PELVIS: , Bilateral knee series 4 views each CLINICAL HISTORY: Bilateral knee pain. COMPARISON: None Pelvis: Mild degenerative changes of both hips without acute bony process. Bilateral knee series: Moderate degenerative changes of both knees with medial weightbearing joint space narrowing. Moderate joint effusions. Vascular calcifications. No acute bony process. Remote healed fracture involving the proximal left fibula. XR/XR pelvis 1-2V IMPRESSION: MILD DEGENERATIVE CHANGES OF BOTH HIPS WITHOUT ACUTE BONY PROCESS. MODERATE DEGENERATIVE CHANGES OF BOTH KNEES WITHOUT ACUTE BONY PROCESS. Impression dictated by: Andrew Moe Jr., D.O.11/23/2023 4:04 PM Dictation Location: [facility]-- Transcribed By: [facility] 11/23/23 1604 Dictated By: Andrew Moe Jr, DO 11/23/23 1602 Signed By: 11/23/23 1604 Normal [facility] 36on 11-02-2023 36 Regarding B/L LE yasemin ous doppler performed on 10/18/2023: MD Kari Castellano MA Nothing significant on the lower extremity venous Doppler. Follow-up as planned. Patient made aware. She verbalized understanding. Normal [facility] Ambulatory Visit Summaryon 0 10-23-2023 Ambulatory Visit Summary MARLENI NGUYEN :1950 Visit Date:10/23/2023 Ambulatory Visit Instructions Your Diagnosis Kidney lesion Urge incontinence 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 Your Care Team Attending Physician - Alfredo COELHO MD Primary Care Physician - JACK VOGT MD This Is Your Medications List oxybutynin (oxybutynin 10 mg ER Tab) Contact prescribing physician if questions or concerns NIFEdipine (NIFEdipine (Eqv-Procardia XL) 90 mg oral tablet, extended release) apixaban (Eliquis 2.5 mg oral tablet) aspirin (aspirin 81 mg Oral EC Tab) carvedilol (carvedilol 12.5 mg Tab) duloxetine (DULoxetine 30 mg Cap-EC) duloxetine (DULoxetine 60 mg Cap-EC) ezetimibe (ezetimibe 10 mg Tab) hydrALAZINE (hydrALAZINE 25 mg Tab) isosorbide mononitrate (isosorbide mononitrate 60 mg ER Tab) isosorbide mononitrate (isosorbide mononitrate 60 mg ER Tab) metoprolol (Metoprolol tartrate 50 mg Tab) nitroglycerin (nitroglycerin 0.4 mg SubL Dushore) pantoprazole (Pantoprazole [address] Tab) pregabalin (pregabalin 75 mg Cap) tizanidine (tiZANidine 4 mg Tab) valsartan (valsartan 320 mg Tab) zolpidem (zolpidem 10 mg oral tablet) Procedures Performed Cholecystectomy, Colonoscopy, Tonsillectomy. Discharge Vitals Heart Rate (Peripheral) 62 Respiratory Rate 16 Blood Pressure 163/83 Height 163 cm Height 64 in Weight 81.5 kg Weight 179.3 lb BMI 30.67 What to do next You Need to Schedule the Following Appointments Follow Up with RONALD BEAULIEU, SONIA Montelongo When: Where: [facility] [address] , [place] [address] [phone] Medications What How Much When Instructions New oxybutynin (oxybutynin 10 mg ER Tab) 1 Tablets By Mouth Every day Refills: 3 Pickup at [facility]/pharmacy #[id number] Unchanged apixaban (Eliquis 2.5 mg oral tablet) Contact prescribing physician if questions or concerns Unchanged aspirin (aspirin 81 mg Oral EC Tab) By Mouth Every day Contact prescribing physician if questions or concerns Unchanged carvedilol (carvedilol 12.5 mg Tab) Contact prescribing physician if questions or concerns Unchanged duloxetine (DULoxetine 30 mg Cap-EC) Contact prescribing physician if questions or concerns Unchanged duloxetine (DULoxetine 60 mg Cap-EC) Contact prescribing physician if questions or concerns Unchanged ezetimibe (ezetimibe 10 mg Tab) Contact prescribing physician if questions or concerns Unchanged hydrALAZINE (hydrALAZINE 25 mg Tab) Contact prescribing physician if questions or concerns Unchanged isosorbide mononitrate (isosorbide mononitrate 60 mg ER Tab) Contact prescribing physician if questions or concerns Unchanged isosorbide mononitrate (isosorbide mononitrate 60 mg ER Tab) Contact prescribing physician if questions or concerns Unchanged metoprolol (Metoprolol tartrate 50 mg Tab) Contact prescribing physician if questions or concerns Unchanged NIFEdipine (NIFEdipine (Eqv-Procardia XL) 90 mg oral tablet, extended release) Contact prescribing physician if questions or concerns Unchanged nitroglycerin (nitroglycerin 0.4 mg SubL Dushore) Sublingual Every 5 minutes Contact prescribing physician if questions or concerns Unchanged pantoprazole (Pantoprazole [address] Tab) Contact prescribing physician if questions or concerns Unchanged pregabalin (pregabalin 75 mg Cap) Contact prescribing physician if questions or concerns Unchanged tizanidine (tiZANidine 4 mg Tab) Contact prescribing physician if questions or concerns Unchanged valsartan (valsartan 320 mg Tab) Contact prescribing physician if questions or concerns Unchanged zolpidem (zolpidem 10 mg oral tablet) Contact prescribing physician if questions or concerns Pharmacy Information [facility]/pharmacy #[id number]: [address], [place] [phone] Allergies iodine (Rash) shellfish (Unknown) statins (Unknown) Problems Ongoing - Any problem that you are currently receiving treatment for. 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 Kidney lesion Osteoporosis Urge incontinence Historical - Any problem that you are no longer receiving treatment for. Heart disease Hyperlipidemia Hypertension Infarction of heart Patient Survey You may receive a survey via text or e-mail asking about your office visit. Please share your experience with us by completing your survey. We appreciate your feedback and thank you for choosing us for your care. Education Materials Urinary Incontinence Urinary incontinence refers to a condition in which a person is unable to control where and when to pass urine. A person with this condition will urinate involuntarily. This means that the person urinates when he or she does not mean to. What are the causes? This condition may be caused by: ? Medicines. ? Infections. ? Constipation. ? Overactive bladder muscles. ? Weak bladder muscles. ? Weak pelvic floor muscles. These muscles provide support for the bladder, intestine, and, in women, (more content not included)... Normal [facility] Patient Educationon 10-23-19 Patient Education Urology Urinary Incontinence Urinary incontinence refers to a condition in which a person is unable to control where and when to pass urine. A person with this condition will urinate involuntarily. This means that the person urinates when he or she does not mean to. What are the causes? This condition may be caused by: ? Medicines. ? Infections. ? Constipation. ? Overactive bladder muscles. ? Weak bladder muscles. ? Weak pelvic floor muscles. These muscles provide support for the bladder, intestine, and, in women, the uterus. ? Enlarged prostate in men. The prostate is a gland near the bladder. When it gets too big, it can pinch the urethra. With the urethra blocked, the bladder can weaken and lose the ability to empty properly. ? Surgery. ? Emotional factors, such as anxiety, stress, or post-traumatic stress disorder (PTSD). ? Spinal cord injury, nerve injury, or other neurological conditions. ? Pelvic organ prolapse. This happens in women when organs move out of place and into the vagina. This movement can prevent the bladder and urethra from working properly. What increases the risk? The following factors may make you more likely to develop this condition: ? Age. The older you are, the higher the risk. ? Obesity. ? Being physically inactive. ? and childbirth. ? Menopause. ? Diseases that affect the nerves or spinal cord. ? Long-term, or chronic, coughing. This can increase pressure on the bladder and pelvic floor muscles. What are the signs or symptoms? Symptoms may vary depending on the type of urinary incontinence you have. They include: ? A sudden urge to urinate, and passing urine involuntarily before you can get to a bathroom (urge incontinence). ? Suddenly passing urine when doing activities that force urine to pass, such as coughing, laughing, exercising, or sneezing (stress incontinence). ? Needing to urinate often but urinating only a small amount, or constantly dribbling urine (overflow incontinence). ? Urinating because you cannot get to the bathroom in time due to a physical disability, such as arthritis or injury, or due to a communication or thinking problem, such as Alzheimer's disease (functional incontinence). How is this diagnosed? This condition may be diagnosed based on: ? Your medical history. ? A physical exam. ? Tests, such as: ? Urine tests. ? X-rays of your kidney and bladder. ? Ultrasound. ? CT scan. ? Cystoscopy. In this procedure, a health care provider inserts a tube with a light and camera (cystoscope) through the urethra and into the bladder to check for problems. ? Urodynamic testing. These tests assess how well the bladder, urethra, and sphincter can store and release urine. There are different types of urodynamic tests, and they vary depending on what the test is measuring. To help diagnose your condition, your health care provider may recommend that you keep a log of when you urinate and how much you urinate. How is this treated? Treatment for this condition depends on the type of incontinence that you have and its cause. Treatment may include: ? Lifestyle changes, such as: ? Quitting smoking. ? Maintaining a healthy weight. ? Staying active. Try to get 150 minutes of moderate-intensity exercise every week. Ask your health care provider which activities are safe for you. ? Eating a healthy diet. ? Avoid high-fat foods, like fried foods. ? Avoid refined carbohydrates like white bread and white rice. ? Limit how much alcohol and caffeine you drink. ? Increase your fiber intake. Healthy sources of fiber include beans, whole grains, and fresh fruits and vegetables. ? Behavioral changes, such as: ? Pelvic floor muscle exercises. ? Bladder training, such as lengthening the amount of time between bathroom breaks, or using the bathroom at regular intervals. ? Using techniques to suppress bladder urges. This can include distraction techniques or controlled breathing exercises. ? Medicines, such as: ? Medicines to relax the bladder muscles and prevent bladder spasms. ? Medicines to help slow or prevent the growth of a man's prostate. ? Botox injections. These can help relax the bladder muscles. ? Treatments, such as: ? Using pulses of electricity to help change bladder reflexes (electrical nerve stimulation). ? For women, using a medical laboratory assistant to prevent urine leaks. This is a small, tampon-like, disposable device that is inserted into the urethra. ? Injecting collagen or carbon beads (bulking agents) into the urinary sphincter. These can help thicken tissue and close the bladder opening. ? Surgery. Follow these instructions at home: Lifestyle ? Limit alcohol and caffeine. These can fill your bladder quickly and irritate it. ? Keep yourself clean to help prevent odors and skin damage. Ask your health care provider about special skin creams and cleansers that can protect the skin from urine. ? (more content not included)... Normal [facility] Urology Office/Clinic Noteon 10-23-2023 Urology Office/Clinic Note Chief Complaint Review MRI HPI Staff F/u to review MRI results from07/24/23. (CT was ordered however pt is allergic to iodine contrast) Dx: kidney lesion and anticoagulated. PT would also like to discuss incontinence. Increased urgency with occasional loss of bladder control. Wears a pad, changes 3-4x/day. Has been ongoing for several months. Denies Hx of Bladder Meds. Intermittent back pain for several yrs, unsure if it is her kidneys. Denies pain/burning and visible blood in urine. History of Present Illness Tests reviewed: reviewed UA, MRI I have reviewed the previous health record information and history for this patient from Dr. Coelho. I have reviewed and verified the staff HPI to be accurate for this encounter. Review of Systems PHQ Score Initial Depression Screen Score: 0 SCORE ROS - Provider Constitutional: denies weight loss, denies hot flashes. Eyes: denies eye problems. Gastrointestinal: denies nausea, denies vomiting. Cardiovascular: denies chest pain or angina. Integumentary: no dryness Musculoskeletal: denies musculoskeletal symptoms. ENMT: denies otolaryngeal symptoms. Respiratory: no shortness of breath. Heme/Lymph: denies easy bleeding tendency, denies easy bruising tendency. Psychiatric: no confusion, no anxiety. Genitourinary: See HPI. Physical Exam Vitals & Measurements HR: 62(Peripheral) RR: 16 BP: 163/83 HT: 64 in HT: 163 cm WT: 81.5 kg WT: 179.3 lb BMI: 30.67 General Appearance: alert , no acute distress, well nourished, well developed female. Genitourinary: bladder nonpalpable, no flank pain. Assessment/Plan 1. Kidney lesion (N28.9: Disorder of kidney and ureter, unspecified) MRI abdomen 08/29/22 - bilateral 5mm hyperdense renal cysts and bilateral benign angiomyolipomas, measuring up to 11mm; no hydronephrosis. MRI abdomen 07/24/23 [facility] - a hemorrhagic/proteinaceous exophytic cyst at RUP involving anterolateral cortex, measures 5 x 10 mm. An intracortical similar appearing lesion involving anterior and medical cortex upper pole L kidney, measures 9 x 10 mm. A small exophytic cyst involving L posterior cortex near inferior pole measures 7mm and intracortical cyst involving posterior cortex upper pole R kidney measures 6mm. Intracortical angiolipoma within posterior cortex at midpole of R kidney and similar midpole appearing lesion on L within posterior cortex measures 7mm. No hydro. Pt is allergic to dye and is unable to receive IV contrast. Discussed imaging results w/ pt. Advised remains stable and unchanged from prior. Not suspicious for malignancy. Will continue to monitor. 2. Urge incontinence (N39.41: Urge incontinence) States she wets herself 3x/day if she does not go immediately after she gets the urge. Wears a pad, changes 3-4x/day. Feels she empties completely, states she bends forward/presses on bladder to ensure she empties. UA today negative for blood and infection. Discussed treatment options, such as oral medications vs behavioral modifications vs procedural interventions. Advised pt she would need to fail 2 bladder medications for Botox to be covered. Pt elects to start a bladder med. Discussed the medication side effects, and the patient will monitor closely for these, as well as for symptom improvement. If severe side effects occur, the medication should be stopped and the office notified. -Begin ER 10mg Oxybutynin. Rx sent to [facility]. 3. 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 (Z79.01: residential (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) On Eliquis. Elevated risk for periop complications. Follow-up With When Contact Information RONALD BEAULIEU, Alfredo Moya, URL [facility] [address], [place] [address] [phone] Additional Instructions: 3 mos (new med) Patient Education Urinary Incontinence IMayte, personally scribed for Dr. Coelho on 10/23/2023 13:24:11. . Documentation recorded by the scribeMayte, accurately reflects the services(s) I performed and decisions made by me. Authenticated by Dr. Coelho on 10/23/2023 13:25:46. Problem List/Past Medical History Ongoing 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 Kidney lesion Osteoporosis Urge incontinence Historical Heart disease Hyperlipidemia Hypertension Infarction of heart Procedure/Surgical History Cholecystectomy, Colonoscopy, Tonsillectomy. Medications aspirin 81 mg Oral EC Tab, Oral, Daily carvedilol 12.5 mg Tab DULoxetine 30 mg Cap-EC DULoxetine 60 mg Cap-EC Eliquis 2.5 mg oral tablet ezetimibe 10 mg Tab hydrALAZINE 25 mg Tab isosorbide mononitrate 60 mg ER Tab isosorbide mononitrate 60 mg ER Tab Metoprolol tartrate 50 mg Tab NIFEdipine (Eqv-Procardia XL) 90 mg oral tablet, extended release nitroglycerin 0.4 mg SubL Dushore, SubLingual, q5min oxybutynin 10 mg ER Tab, 10 mg= 1 tab(s), Oral, Daily, 3 refills Pantoprazole [address] Tab pregabalin 75 mg Cap tiZANidine 4 mg Tab valsartan 320 mg Tab zolpidem 10 mg oral tablet Aller (more content not included)... Normal [facility] Comment on above: Result Comment: Elec tronically Signed By: Alfredo COELHO MD\.br\Date and Time Signed: 10/23/23 13:25 EST\.br\Electronically Co-Signed By: Mayte Vogt.br\Date and Time Co-Signed: 10/23/23 13:24 EST Office Visiton 10-11-2023 Follow-up visit [id number] Lauren Nguyen 1950 F Date Provider Department Center 10/11/2023 SACHIN KEITH [facility] Family History Problem Relation Age of Onset Coronary artery disease Mother Stroke Mother Coronary artery disease Father Ovarian cancer Sister Family Status - Relation Status Age at Mother Father Sister Level of Service:92555 CT OFFICE/OUTPATIENT ESTABLISHED MOD MDM 30 MIN [facility] Office Visiton 07-21-2023 Follow-up visit [id number] Lauren Nguyen 1950 F Date Provider Department Center 07/21/2023 SACHIN KEITH [place] [facility] Family History Problem Relation Age of Onset Coronary artery disease Mother Stroke Mother Coronary artery disease Father Ovarian cancer Sister Family Status - Relation Status Age at Mother Father Sister Level of Service:39733 CT OFFICE/OUTPATIENT ESTABLISHED MOD MDM 30-39 MIN Normal [facility] CBC AUTO DIFFon 01-18-2023 BASO # 0.1 103/ul Normal 0.0-0.1 [facility] Comment on above: Performed By: #### C BC #### [facility] [address] [address] [address] Aryan Petty Basophils/100 WBC (Bld) 1.4 % Normal 0.2-2.0 [facility] Comment on above: Performed By: #### C BC #### [facility] [address] [place] [address] Dr. Aryan Petty EO # 0.6 103/ul Normal 0.0-0.7 [facility] Comment on above: Performed By: #### C BC #### [facility] [address] [place] [address] Dr. Aryan Petty Eosinophils/100 WBC (Bld) 7.7 % Critically high 0.9-7.0 [facility] Comment on above: Performed By: #### C BC #### [facility] [address] [place] [address] Dr. Aryan Petty Erythrocyte distribution width (RBC) [Ratio] 16.4 % Critically high 11.0-15.0 [facility] Comment on above: Performed By: #### C BC #### [facility] [address] [place] [address] Dr. Aryan Petty Hematocrit (Bld) [Volume fraction] 40.6 % Normal 36.0-48.0 [facility] Comment on above: Performed By: #### C BC #### [facility] [address] [place] [address] Dr. Aryan Petty Hemoglobin (Bld) [Mass/Vol] 12.9 g/dL Normal 12.0-16.0 [facility] Comment on above: Performed By: #### C BC #### [facility] [address] [place] [address] Dr. Aryan Petty IG # 0.03 10e3/ul Normal 0.00-0.03 [facility] Comment on above: Performed By: #### C BC #### [facility] [address] [place] [address] Dr. Aryan Petty IG % 0.4 % Normal 0.0-0.5 [facility] Comment on above: Performed By: #### C BC #### [facility] [address] [place] [address] Dr. Aryan Petty LYMPH # 2.6 103/ul Normal 1.2-3.8 [facility] Comment on above: Performed By: #### C BC #### [facility] [address] [place] [address] Dr. Aryan Petty Lymphocytes/100 WBC (Bld) 35.5 % Normal 20.5-60.0 [facility] Comment on above: Performed By: #### C BC #### [facility] [address] [place] [address] Dr. Aryan Petty MANUAL DIFF REQ NO Normal [facility] Comment on above: Performed By: #### C BC #### [facility] [address] [place] [address] Dr. Aryan Petty MCH (RBC) [Entitic mass] 26.5 pg Critically low 26.7-34.0 [facility] Comment on above: Performed By: #### C BC #### [facility] [address] [place] [address] Dr. Aryan Petty MCHC (RBC) [Mass/Vol] 31.8 g/dL Normal 29.9-35.2 [facility] Comment on above: Performed By: #### C BC #### [facility] [address] [place] [address] Dr. Aryan Petty MCV (RBC) [Entitic vol] 83.5 fL Normal 81.0-99.0 [facility] Comment on above: Performed By: #### C BC #### [facility] [address] [place] [address] Dr. Aryan Petty MONO # 0.7 103/ul Normal 0.3-0.8 [facility] Comment on above: Performed By: #### C BC #### [facility] [address] [place] [address] Dr. Aryan Petty Monocytes/100 WBC (Bld) 9.9 % Normal 1.7-12.0 [facility] Comment on above: Performed By: #### C BC #### [facility] [address] [place] [address] Dr. Aryan Petty NEUT # 3.3 103/ul Normal 1.4-6.5 [facility] Comment on above: Performed By: #### C BC #### [facility] [address] [place] [address] Dr. Aryan Petty Neutrophils/100 WBC (Bld) 45.1 % Normal 43.0-75.0 [facility] Comment on above: Performed By: #### C BC #### [facility] [address] [address] [address] Aryan Petty Platelet mean volume (Bld) [Entitic vol] 11.0 fL Normal 9.5-13.5 [facility] Comment on above: Performed By: #### C BC #### [facility] [address] [place] [address] Dr. Aryan Petty PLT 270 103/ul Normal 150-450 [facility] Comment on above: Performed By: #### C BC #### [facility] [address] [place] [address] Dr. Aryan Petty RBC 4.86 106/ul Normal 4.20-5.40 [facility] Comment on above: Performed By: #### C BC #### [facility] [address] [place] [address] Dr. Aryan Petty WBC 7.4 103/ul Normal 4.0-11.0 [facility] Comment on above: Performed By: #### C BC #### [facility] [address] [place] [address] Dr. Aryan Petty LIPID PROFILEon 01-18-2023 CHOL-HDL RATIO NORM SEE BELOW Normal [facility] Comment on above: Result Comment: 3.3 - 4.4 LOW RISK 4.4 - 7.1 AVERAGE RISK 7.1 - 11.0 MODERATE RISK >11.0 HIGH RISK Performed By: #### C MP, LIPID #### [facility] [address] [place] [address] Dr. Aryan Petty Cholesterol [Mass/Vol] 189 mg/dL Normal <=200 [facility] Comment on above: Performed By: #### C MP, LIPID #### [facility] [address] [place] [address] Dr. Aryan Petty Cholesterol in HDL [Mass/Vol] 30 mg/dL Critically low 40-60 [facility] Comment on above: Performed By: #### C MP, LIPID #### [facility] [address] [address] [address] Aryan Petty Cholesterol in LDL [Mass/Vol] 101.6 mg/dL Normal [facility] Comment on above: Performed By: #### C MP, LIPID #### [facility] [address] [address] [address] Aryan Petty Cholesterol.total/ Cholesterol in HDL [Mass ratio] 6.3 {ratio} Normal [facility] Comment on above: Performed By: #### C MP, LIPID #### [facility] [address] [address] [address] Aryan Petty HDL NORMAL > or = 60 mg/dl - LO W CARDIOVASCULAR RISK <40 mg/dl - HIGH CARDIOVASCULAR RISK Normal [facility] Comment on above: Performed By: #### C MP, LIPID #### [facility] [address] [place] [address] Dr. Aryan Petty LDL CALC NORMAL SEE BELOW Normal [facility] Comment on above: Result Comment: <100 mg/dl OPTIMAL 100 - 129 mg/dl NEAR OR ABOVE OPTIMAL 130 - 159 mg/dl BORDERLINE HIGH 160 - 189 mg/dl HIGH >190 mg/dl VERY HIGH Performed By: #### C MP, LIPID #### [facility] [address] [address] [address] Aryan Petty Triglyceride [Mass/Vol] 287 mg/dL Critically high <=150 [facility] Comment on above: Performed By: #### C MP, LIPID #### [facility] [address] [place] [address] Dr. Aryan Petty VLDL CALC 57.4 mg/dL Normal [facility] Comment on above: Performed By: #### C MP, LIPID #### [facility] [address] [place] [address] Dr. Aryan Petty PROF 14(COMP METB)on 023 Albumin [Mass/Vol] 3.6 g/dL Normal 3.4-5.0 [facility] Comment on above: Performed By: #### C MP, LIPID #### [facility] [address] [address] [address] Aryan Petty Albumin/Globulin [Mass ratio] 0.8 {ratio} Normal [facility] Comment on above: Performed By: #### C MP, LIPID #### [facility] [address] [address] [address] Aryan Petty ALP [Catalytic activity/Vol] 86 U/L Normal 46-116 [facility] Comment on above: Performed By: #### C MP, LIPID #### [facility] [address] [place] [address] Dr. Aryan Petty ALT [Catalytic activity/Vol] 21 U/L Normal 14-59 [facility] Comment on above: Performed By: #### C MP, LIPID #### [facility] [address] [place] [address] Dr. Aryan Petty Anion gap [Moles/Vol] 13.1 mmol/L Normal [facility] Comment on above: Performed By: #### C MP, LIPID #### [facility] [address] [place] [address] Dr. Aryan Petty AST [Catalytic activity/Vol] 27 U/L Normal 15-37 [facility] Comment on above: Performed By: #### C MP, LIPID #### [facility] [address] [place] [address] Dr. Aryan Petty Bilirubin [Mass/Vol] 0.4 mg/dL Normal 0.2-1.0 [facility] Comment on above: Performed By: #### C MP, LIPID #### [facility] [address] [place] [address] Dr. Aryan Petty Calcium [Mass/Vol] 9.4 mg/dL Normal 8.5-10.1 [facility] Comment on above: Performed By: #### C MP, LIPID #### [facility] [address] [place] [address] Dr. Aryan Petty Chloride [Moles/Vol] 103 mmol/L Normal 98-107 [facility] Comment on above: Performed By: #### C MP, LIPID #### [facility] [address] [address] [address] Aryan Petty CO2 [Moles/Vol] 27.6 mmol/L Normal 21.0-32.0 [facility] Comment on above: Performed By: #### C MP, LIPID #### [facility] [address] [place] [address] Dr. Aryan Petty Creatinine [Mass/Vol] 2.21 mg/dL Critically high 0.55-1.02 [facility] Comment on above: Performed By: #### C MP, LIPID #### [facility] [address] [address] [address] Aryan Petty EGFR-AF MONTSERRATIAN 26 mL/min/1.73m2 Critically low >=60 [facility] Comment on above: Performed By: #### C MP, LIPID #### [facility] [address] [place] [address] Dr. Aryan Petty EGFR-NON AF MONTSERRATIAN 22 mL/min/1.73m2 Critically low >=60 [facility] Comment on above: Performed By: #### C MP, LIPID #### [facility] [address] [place] [address] Dr. Aryan Petty Globulin (S) [Mass/Vol] 4.6 g/dL Normal [facility] Comment on above: Performed By: #### C MP, LIPID #### [facility] [address] [place] [address] Dr. Aryan Petty Glucose [Mass/Vol] 120 mg/dL Critically high 74-106 [facility] Comment on above: Performed By: #### C MP, LIPID #### [facility] [address] [place] [address] Dr. Aryan Petty Potassium [Moles/Vol] 4.0 mmol/L Normal 3.5-5.1 [facility] Comment on above: Performed By: #### C MP, LIPID #### [facility] [address] [place] [address] Dr. Aryan Petty Protein [Mass/Vol] 8.2 g/dL Normal 6.4-8.2 [facility] Comment on above: Performed By: #### C MP, LIPID #### [facility] [address] [place], [place] [address] Dr. Aryan Petty Sodium [Moles/Vol] 140 mmol/L Normal 136-145 [facility] Comment on above: Performed By: #### C MP, LIPID #### [facility] [address] [place], [place] [address] Dr. Aryan Petty Urea nitrogen [Mass/Vol] 29.0 mg/dL Critically high 7.0-18.0 [facility] Comment on above: Performed By: #### C MP, LIPID #### [facility] [address] [place], [place] [address] Dr. Aryan Petty Urea nitrogen/Creatinin e [Mass ratio] 13.1 mg/mg Normal [facility] Comment on above: Performed By: #### C MP, LIPID #### [facility] [address] [address] [address] Aryan Petty US CAROTID ART BILon 04-25-2 023 US CAROTID ART TEJ EXAMINATION: US [...] by: TONYA GARCIA Date: 2023-01-10 15:26 Normal [facility] XR DEXA BONE DENSITYon 09-07 XR DEXA [...] by: TONYA GARCIA Date: 2022-09-07 16:41 Normal [facility] MRI ABDOMEN WO W CONon 09-01 MRI [...] by: RYLAN HOPKINS Date: 2022-09-01 12:43 Normal [facility] CREATININEon 08-29-2022 Creatinine [Mass/Vol] 2.23 mg/dL Critically high 0.55-1.02 [facility] Comment on above: Performed By: #### C JUDAH ####[facility] [address] [address]DrGenet Petty EGFR-AF MONTSERRATIAN 26 mL/min/1.73m2 Critically low >=60 [facility] Comment on above: Performed By: #### C JUDAH ####[facility] [address] [address]DrGenet Petty EGFR-NON AF MONTSERRATIAN 22 mL/min/1.73m2 Critically low >=60 [facility] Comment on above: Performed By: #### C JUDAH ####[facility] [address] [place], [place] [address]VbGenet Petty ECHOCARDIO M/2D COMPLETEon 0 03-16-2022 ECHOCARDIO M/2D COMPLETE Patient: MARLENI NGUYEN Exam Date: 03/16/2022 : 1950 Gender:F Ordering : JOHN EPPERSON Admission #: [id number] Family : DR JACK VOGT M.D. Order #: [id number] CLICK HERE TO VIEW EXAM ECHOCARDIOGRAM REPORT [...] Aguilera M.D. on 03/16/2022 at 16:36 Normal [facility] BNPon 02-22-2022 Natriuretic peptide B (Bld) [Mass/Vol] 553.0 pg/mL Normal <=900.0 [facility] Comment on above: Performed By: #### B CEMENT MIXER, BMP ####[facility] [address] [address]Dr. Aryan Petty PROF CHEM 8 (BAS METB)on Anion gap [Moles/Vol] 14.9 mmol/L Normal [facility] Comment on above: Performed By: #### B CEMENT MIXER, BMP ####[facility] [address] [place], [place] [address]Dr. Aryan Petty Calcium [Mass/Vol] 9.1 mg/dL Normal 8.5-10.1 [facility] Comment on above: Performed By: #### B CEMENT MIXER, BMP ####[facility] [address] [place], [place] [address]Dr. Aryan Petty Chloride [Moles/Vol] 102 mmol/L Normal 98-107 [facility] Comment on above: Performed By: #### B CEMENT MIXER, BMP ####[facility] [address] [place], [place] [address]Dr. Aryan Petty CO2 [Moles/Vol] 27.7 mmol/L Normal 21.0-32.0 [facility] Comment on above: Performed By: #### B CEMENT MIXER, BMP ####[facility] [address] [place], [place] [address]Dr. Aryan Petty Creatinine [Mass/Vol] 1.80 mg/dL Critically high 0.55-1.02 [facility] Comment on above: Performed By: #### B CEMENT MIXER, BMP ####[facility] [address] [place], [place] [address]Dr. Aryan Petty EGFR-AF MONTSERRATIAN 34 mL/min/1.73m2 Critically low >=60 [facility] Comment on above: Performed By: #### B CEMENT MIXER, BMP ####[facility] [address] [place], [place] [address]Dr. Aryan Petty EGFR-NON AF MONTSERRATIAN 28 mL/min/1.73m2 Critically low >=60 [facility] Comment on above: Performed By: #### B CEMENT MIXER, BMP ####[facility] [address] [place], [place] [address]Dr. Aryan Petty Glucose [Mass/Vol] 107 mg/dL Critically high 74-106 [facility] Comment on above: Performed By: #### B CEMENT MIXER, BMP ####[facility] [address] [place], [place] [address]Dr. Suzannetanisha Petty Potassium [Moles/Vol] 3.6 mmol/L Normal 3.5-5.1 [facility] Comment on above: Performed By: #### B CEMENT MIXER, BMP ####[facility] [address] [place], [place] [address]Dr. Aryan Petty Sodium [Moles/Vol] 141 mmol/L Normal 136-145 [facility] Comment on above: Performed By: #### B CEMENT MIXER, BMP ####[facility] [address] [place], [place] [address]Dr. Aryan Petty Urea nitrogen [Mass/Vol] 33.0 mg/dL Critically high 7.0-18.0 [facility] Comment on above: Performed By: #### B CEMENT MIXER, BMP ####[facility] [address] [place], [place] [address]Dr. Aryan Petty Urea nitrogen/Creatinin e [Mass ratio] 18.3 mg/mg Normal [facility] Comment on above: Performed By: #### B CEMENT MIXER, BMP ####[facility] [address] [place], [place] [address]Dr. Aryan Jovanny US KIDNEYSon 02-22-2022 US KIDNEYS EXAMINATION: US KIDPamela EYS HISTORY: Kidney lesion COMPARISON: 03/24/2021 TECHNIQUE: Ultrasound [...] by: HENRY PARKER Date: 2022-02-22 17:17 Normal [facility] VC VENOUS REFLUX TEJ LMTon 0 02-16-2022 VC VENOUS REFLUX TEJ LMT Patient: MARLENI NGUYEN Exam Date: 02/16/2022 : 1950 Gender:F Ordering : JOHN EPPERSON Admission #: [id number] Family : Order #: [id number] CLICK HERE TO VIEW EXAM RADIOLOGY REPORT [...] proximal SSV. Flow: Mild deep venous reflux. Mixed Signal Design Engineer: Dist/med calf 3.3 mm with 0.3s reflux. [...] Normal. Flow: Mild deep venous reflux noted. Mixed Signal Design Engineer: Mid/medial calf 3.1mm, 2.9s. Dist/med calf 3.1mm, [...] Parker MD on 02/16/2022 at 11:49 Normal [facility] US CAROTID ART BILon 05-20-2 022 [...] by: TONYA GARCIA Date: 2022-02-04 17:45 Normal [facility] US YASEMIN DOP LEG BILon 022 US YASEMIN DOP LEG TEJ EXAM: US YASEMIN DOP LEG TEJ HISTORY: Pain in lower [...] by: JERRICA HOLDEN Date: 2022-02-04 16:34 Normal [facility] BNPon 01-31-2022 Natriuretic peptide B (Bld) [Mass/Vol] 620.0 pg/mL Normal <=900.0 [facility] Comment on above: Performed By: #### B CEMENT MIXER, BMP, LIPID ####[facility] [address] [address]Dr. Aryan Petty LIPID PROFILEon 01-31-2022 CHOL-HDL RATIO NORM SEE BELOW Normal [facility] Comment on above: Result Comment: 3.3 - 4.4 LOW RISK 4.4 - 7.1 AVERAGE RISK 7.1 - 11.0 MODERATE RISK >11.0 HIGH RISK Performed By: #### B CEMENT MIXER, BMP, LIPID ####[facility] [address] [address]Dr. Aryan Petty Cholesterol [Mass/Vol] 148 mg/dL Normal <=200 [facility] Comment on above: Performed By: #### B CEMENT MIXER, BMP, LIPID ####[facility] [address] [address]Dr. Aryan Petty Cholesterol in HDL [Mass/Vol] 25 mg/dL Critically low 40-60 [facility] Comment on above: Performed By: #### B CEMENT MIXER, BMP, LIPID ####[facility] [address] [place], [place] [address]Dr. Aryan Petty Cholesterol in LDL [Mass/Vol] 80.8 mg/dL Normal [facility] Comment on above: Performed By: #### B CEMENT MIXER, BMP, LIPID ####[facility] [address] [address]Dr. Aryan Petty Cholesterol.total/ Cholesterol in HDL [Mass ratio] 5.9 {ratio} Normal [facility] Comment on above: Performed By: #### B CEMENT MIXER, BMP, LIPID ####[facility] [address] [address]Dr. Aryan Petty HDL NORMAL > or = 60 mg/dl - LO W CARDIOVASCULAR RISK <40 mg/dl - HIGH CARDIOVASCULAR RISK Normal [facility] Comment on above: Performed By: #### B CEMENT MIXER, BMP, LIPID ####[facility] [address] [place], [place] [address]Dr. Aryan Petty LDL CALC NORMAL SEE BELOW Normal [facility] Comment on above: Result Comment: <100 mg/dl OPTIMAL 100 - 129 mg/dl NEAR OR ABOVE OPTIMAL 130 - 159 mg/dl BORDERLINE HIGH 160 - 189 mg/dl HIGH >190 mg/dl VERY HIGH Performed By: #### B CEMENT MIXER, BMP, LIPID ####[facility] [address] [address]Dr. Aryan Petty Triglyceride [Mass/Vol] 211 mg/dL Critically high <=150 [facility] Comment on above: Performed By: #### B CEMENT MIXER, BMP, LIPID ####[facility] [address] [address]Dr. Aryan Petty VLDL CALC 42.2 mg/dL Normal [facility] Comment on above: Performed By: #### B CEMENT MIXER, BMP, LIPID ####[facility] [address] [address]Dr. Aryan Petty PROF CHEM 8 (BAS METB)on Anion gap [Moles/Vol] 14.7 mmol/L Normal [facility] Comment on above: Performed By: #### B CEMENT MIXER, BMP, LIPID ####[facility] [address] [address]Dr. Aryan Petty Calcium [Mass/Vol] 8.7 mg/dL Normal 8.5-10.1 [facility] Comment on above: Performed By: #### B CEMENT MIXER, BMP, LIPID ####[facility] [address] [address]Dr. Aryan Petty Chloride [Moles/Vol] 104 mmol/L Normal 98-107 [facility] Comment on above: Performed By: #### B CEMENT MIXER, BMP, LIPID ####[facility] [address] [address]Dr. Aryan Petty CO2 [Moles/Vol] 26.0 mmol/L Normal 21.0-32.0 [facility] Comment on above: Performed By: #### B CEMENT MIXER, BMP, LIPID ####[facility] [address] [address]Dr. Aryan Petty Creatinine [Mass/Vol] 2.91 mg/dL Critically high 0.55-1.02 [facility] Comment on above: Performed By: #### B CEMENT MIXER, BMP, LIPID ####[facility] [address] [address]Dr. Aryan Petty EGFR-AF MONTSERRATIAN 19 mL/min/1.73m2 Critically low >=60 [facility] Comment on above: Performed By: #### B CEMENT MIXER, BMP, LIPID ####[facility] [address] [address]Dr. Aryan Petty EGFR-NON AF MONTSERRATIAN 16 mL/min/1.73m2 Critically low >=60 [facility] Comment on above: Performed By: #### B CEMENT MIXER, BMP, LIPID ####[facility] [address] [address]Dr. Aryan Petty Glucose [Mass/Vol] 110 mg/dL Critically high 74-106 [facility] Comment on above: Performed By: #### B CEMENT MIXER, BMP, LIPID ####[facility] [address] [address]Dr. Aryan Petty Potassium [Moles/Vol] 3.7 mmol/L Normal 3.5-5.1 [facility] Comment on above: Performed By: #### B CEMENT MIXER, BMP, LIPID ####[facility] [address] [address]Dr. Aryan Petty Sodium [Moles/Vol] 141 mmol/L Normal 136-145 [facility] Comment on above: Performed By: #### B CEMENT MIXER, BMP, LIPID ####[facility] [address] [address]Dr. Aryan Petty Urea nitrogen [Mass/Vol] 51.0 mg/dL Critically high 7.0-18.0 [facility] Comment on above: Performed By: #### B CEMENT MIXER, BMP, LIPID ####[facility] [address] [address]Dr. Aryan Petty Urea nitrogen/Creatinin e [Mass ratio] 17.5 mg/mg Normal [facility] Comment on above: Performed By: #### B CEMENT MIXER, BMP, LIPID ####[facility] [address] [place], [place] [address]Nx. Aryan Petty Basic Metabolic Panel Reflex Mgon 06-07-2018 Anion gap 3 molar conc 10 mmol/L Normal 7-13 [facility] Calcium mass conc 8.2 mg/dL Low 8.6-10.2 [facility] Chloride molar conc 109 mmol/L Critically high 98-107 [facility] CO2 molar conc 25 mmol/L Normal 22-29 [facility] Creatinine mass conc 1.21 mg/dL Critically high 0.50-0.90 [facility] GFR/1.73 sq M predicted among blacks MDRD vol rate/area (S/P/Bld) 53.4 mL/min/{1.73_m2} Low >60 [facility] Comment on above: Result Comment: >60 mL/min/1.73m2 EGFR, calc. for ages 18 and older using theMDRD formula (not corrected for weight), is valid for stablerenal function. GFR/1.73 sq M.predicted MDRD vol rate/area 44.2 mL/min/{1.73_m2} Low >60 [facility] Comment on above: Result Comment: >60 mL/min/1.73m2 EGFR, calc. for ages 18 and older using theMDRD formula (not corrected for weight), is valid for stablerenal function. Glucose mass conc 111 mg/dL Critically high 74-109 [facility] Potassium reflex Mg 3.6 mEq/L Normal 3.5-5.1 [facility] Sodium molar conc 144 mmol/L Normal 132-144 [facility] Urea nitrogen mass conc 26 mg/dL Critically high 8-23 [facility] CBC With Platelet and Differ entialon 06-07-2018 Basophils Auto #/vol (Bld) 0.1 10*3/uL Normal 0.0-0.2 [facility] Basophils/100 WBC Auto (Bld) 0.7 % Normal [facility] Eosinophils Auto #/vol (Bld) 0.3 10*3/uL Normal 0.0-0.7 [facility] Eosinophils/100 WBC Auto (Bld) 3.1 % Normal [facility] Erythrocyte distribution width Auto Ratio (RBC) 13.4 % Normal 11.5-14.5 [facility] Hematocrit Auto Volume Fraction (Bld) 34.6 % Low 37.0-47.0 [facility] Hemoglobin mass conc (Bld) 12.0 g/dL Normal 12.0-16.0 [facility] Lymphocytes Auto #/vol (Bld) 2.3 10*3/uL Normal 1.0-4.8 [facility] Lymphocytes/100 WBC Auto (Bld) 24.2 % Normal [facility] MCH Auto Entitic mass (RBC) 33.0 pg Critically high 27.0-31.3 [facility] MCHC Auto mass conc (RBC) 34.6 % Normal 33.0-37.0 [facility] MCV Auto Entitic volume (RBC) 95.4 fL Normal 82.0-100.0 [facility] Monocytes Auto #/vol (Bld) 0.9 10*3/uL Critically high 0.2-0.8 [facility] Monocytes/100 WBC Auto (Bld) 9.8 % Normal [facility] Neutrophils Auto #/vol (Bld) 5.9 10*3/uL Normal 1.4-6.5 [facility] Neutrophils/100 WBC Auto (Bld) 62.2 % Normal [facility] Platelets Auto #/vol (Bld) 139 10*3/uL Normal 130-400 [facility] RBC Auto #/vol (Bld) 3.62 10*6/uL Low 4.20-5.40 [facility] WBC Auto #/vol (Bld) 9.5 10*3/uL Normal 4.8-10.8 [facility] Basic Metabolic Panelon 09- Anion gap 3 molar conc 11 mmol/L Normal 7-13 [facility] Calcium mass conc 8.3 mg/dL Low 8.6-10.2 [facility] Chloride molar conc 104 mmol/L Normal 98-107 [facility] CO2 molar conc 26 mmol/L Normal 22-29 [facility] Creatinine mass conc 1.90 mg/dL Critically high 0.50-0.90 [facility] GFR/1.73 sq M predicted among blacks MDRD vol rate/area (S/P/Bld) 31.8 mL/min/{1.73_m2} Low >60 [facility] Comment on above: Result Comment: >60 mL/min/1.73m2 EGFR, calc. for ages 18 and older using theMDRD formula (not corrected for weight), is valid for stablerenal function. GFR/1.73 sq M.predicted MDRD vol rate/area 26.2 mL/min/{1.73_m2} Low >60 [facility] Comment on above: Result Comment: >60 mL/min/1.73m2 EGFR, calc. for ages 18 and older using theMDRD formula (not corrected for weight), is valid for stablerenal function. Glucose mass conc 149 mg/dL Critically high 74-109 [facility] Potassium molar conc 4.1 mmol/L Normal 3.5-5.1 [facility] Sodium molar conc 141 mmol/L Normal 132-144 [facility] Urea nitrogen mass conc 25 mg/dL Critically high 8-23 [facility] CBC With Platelet and Differ entialon 06-06-2018 Basophils Auto #/vol (Bld) 0.0 10*3/uL Normal 0.0-0.2 [facility] Basophils/100 WBC Auto (Bld) 0.1 % Normal [facility] Eosinophils Auto #/vol (Bld) 0.0 10*3/uL Normal 0.0-0.7 [facility] Eosinophils/100 WBC Auto (Bld) 0.0 % Normal [facility] Erythrocyte distribution width Auto Ratio (RBC) 13.5 % Normal 11.5-14.5 [facility] Hematocrit Auto Volume Fraction (Bld) 35.0 % Low 37.0-47.0 [facility] Hemoglobin mass conc (Bld) 12.0 g/dL Normal 12.0-16.0 [facility] Lymphocytes Auto #/vol (Bld) 1.0 10*3/uL Normal 1.0-4.8 [facility] Lymphocytes/100 WBC Auto (Bld) 8.2 % Normal [facility] MCH Auto Entitic mass (RBC) 32.8 pg Critically high 27.0-31.3 [facility] MCHC Auto mass conc (RBC) 34.4 % Normal 33.0-37.0 [facility] MCV Auto Entitic volume (RBC) 95.3 fL Normal 82.0-100.0 [facility] Monocytes Auto #/vol (Bld) 1.0 10*3/uL Critically high 0.2-0.8 [facility] Monocytes/100 WBC Auto (Bld) 8.0 % Normal [facility] Neutrophils Auto #/vol (Bld) 10.1 10*3/uL Critically high 1.4-6.5 [facility] Neutrophils/100 WBC Auto (Bld) 83.7 % Normal [facility] Platelets Auto #/vol (Bld) 146 10*3/uL Normal 130-400 [facility] RBC Auto #/vol (Bld) 3.67 10*6/uL Low 4.20-5.40 [facility] WBC Auto #/vol (Bld) 12.1 10*3/uL Critically high 4.8-10.8 [facility] XR CHEST (2 VW)on 06-06-2018 XR [...] ATELECTASIS/SCARRING/PNEU MONITIS. Interpreted by:ANDRA Dominguezigned by:Joss Casas MD06/06/inal result Normal [facility] Basic Metabolic Panel Reflex Mgon 06-05-2018 Anion gap 3 molar conc 11 mmol/L Normal 7-13 [facility] Calcium mass conc 8.9 mg/dL Normal 8.6-10.2 [facility] Chloride molar conc 105 mmol/L Normal 98-107 [facility] CO2 molar conc 25 mmol/L Normal 22-29 [facility] Creatinine mass conc 0.86 mg/dL Normal 0.50-0.90 [facility] GFR/1.73 sq M predicted among blacks MDRD vol rate/area (S/P/Bld) mL/min/{1.73_m2} Normal >60 [facility] Comment on above: Result Comment: >60 mL/min/1.73m2 EGFR, calc. for ages 18 and older using theMDRD formula (not corrected for weight), is valid for stablerenal function. GFR/1.73 sq M.predicted MDRD vol rate/area mL/min/{1.73_m2} Normal >60 [facility] Comment on above: Result Comment: >60 mL/min/1.73m2 EGFR, calc. for ages 18 and older using theMDRD formula (not corrected for weight), is valid for stablerenal function. Glucose mass conc 135 mg/dL Critically high 74-109 [facility] Potassium reflex Mg 4.0 mEq/L Normal 3.5-5.1 [facility] Sodium molar conc 141 mmol/L Normal 132-144 [facility] Urea nitrogen mass conc 13 mg/dL Normal 8-23 [facility] CBC With Platelet and Differ entialon 06-05-2018 RBC morphology finding Nom (Bld) Normal Normal [facility] Platelet Slide Review Normal Normal [facility] Basophils Auto #/vol (Bld) 0.1 10*3/uL Normal 0.0-0.2 [facility] Basophils/100 WBC Auto (Bld) 1.0 % Normal [facility] Eosinophils Auto #/vol (Bld) 0.0 10*3/uL Normal 0.0-0.7 [facility] Eosinophils/100 WBC Auto (Bld) 0.4 % Normal [facility] Erythrocyte distribution width Auto Ratio (RBC) 13.5 % Normal 11.5-14.5 [facility] Hematocrit Auto Volume Fraction (Bld) 40.5 % Normal 37.0-47.0 [facility] Hemoglobin mass conc (Bld) 13.7 g/dL Normal 12.0-16.0 [facility] Lymphocytes Auto #/vol (Bld) 2.0 10*3/uL Normal 1.0-4.8 [facility] Lymphocytes/100 WBC Auto (Bld) 15.5 % Normal [facility] MCH Auto Entitic mass (RBC) 32.4 pg Critically high 27.0-31.3 [facility] MCHC Auto mass conc (RBC) 33.9 % Normal 33.0-37.0 [facility] MCV Auto Entitic volume (RBC) 95.6 fL Normal 82.0-100.0 [facility] Monocytes Auto #/vol (Bld) 1.3 10*3/uL Critically high 0.2-0.8 [facility] Monocytes/100 WBC Auto (Bld) 10.1 % Normal [facility] Neutrophils Auto #/vol (Bld) 9.4 10*3/uL Critically high 1.4-6.5 [facility] Neutrophils/100 WBC Auto (Bld) 73.0 % Normal [facility] Platelets Auto #/vol (Bld) 168 10*3/uL Normal 130-400 [facility] RBC Auto #/vol (Bld) 4.24 10*6/uL Normal 4.20-5.40 [facility] WBC Auto #/vol (Bld) 12.9 10*3/uL Critically high 4.8-10.8 [facility] POCT Glucoseon 06-05-2018 Glucose mass conc 132 mg/dL Critically high 60-115 [facility] XR LUMBAR SPINE (2-3 VIEWS)o n 06-05-2018 [...] L4-5 AND L5-S1.Interpreted by:ANDRA Sotoigned by:Tanvir Power MD06/05/18Final result Normal [facility] Basic Metabolic Panel Reflex Mgon 06-04-2018 Anion gap 3 molar conc 13 mmol/L Normal 7-13 [facility] Calcium mass conc 9.1 mg/dL Normal 8.6-10.2 [facility] Chloride molar conc 103 mmol/L Normal 98-107 [facility] CO2 molar conc 23 mmol/L Normal 22-29 [facility] Creatinine mass conc 1.08 mg/dL Critically high 0.50-0.90 [facility] GFR/1.73 sq M predicted among blacks MDRD vol rate/area (S/P/Bld) mL/min/{1.73_m2} Normal >60 [facility] Comment on above: Result Comment: >60 mL/min/1.73m2 EGFR, calc. for ages 18 and older using theMDRD formula (not corrected for weight), is valid for stablerenal function. GFR/1.73 sq M.predicted MDRD vol rate/area 50.4 mL/min/{1.73_m2} Low >60 [facility] Comment on above: Result Comment: >60 mL/min/1.73m2 EGFR, calc. for ages 18 and older using theMDRD formula (not corrected for weight), is valid for stablerenal function. Glucose mass conc 164 mg/dL Critically high 74-109 [facility] Potassium reflex Mg 4.3 mEq/L Normal 3.5-5.1 [facility] Sodium molar conc 139 mmol/L Normal 132-144 [facility] Urea nitrogen mass conc 21 mg/dL Normal 8-23 [facility] CBC With Platelet No Differe ntialon 06-04-2018 Erythrocyte distribution width Auto Ratio (RBC) 13.4 % Normal 11.5-14.5 [facility] Hematocrit Auto Volume Fraction (Bld) 44.5 % Normal 37.0-47.0 [facility] Hemoglobin mass conc (Bld) 15.2 g/dL Normal 12.0-16.0 [facility] MCH Auto Entitic mass (RBC) 32.6 pg Critically high 27.0-31.3 [facility] MCHC Auto mass conc (RBC) 34.3 % Normal 33.0-37.0 [facility] MCV Auto Entitic volume (RBC) 95.1 fL Normal 82.0-100.0 [facility] Platelets Auto #/vol (Bld) 163 10*3/uL Normal 130-400 [facility] RBC Auto #/vol (Bld) 4.68 10*6/uL Normal 4.20-5.40 [facility] WBC Auto #/vol (Bld) 8.3 10*3/uL Normal 4.8-10.8 [facility] FLUORO FOR SURGICAL PROCEDUR ESon 06-04-2018 [...] the soft tissue anterior to the spinal column.[place] bone intact.Please see procedural note for more detailed.IMPRESSION: INTRAOPERATIVE PLIF L3-L5.Interpreted by:ANDRA Dominguezigned by:Joss Casas MD06/04/18inal result Normal [facility] POCT Glucoseon 06-04-2018 Glucose mass conc 106 mg/dL Normal 60-115 [facility] POC Performed on ACCU-CHEK Normal [facility] Surgical Specimenon 06-04-20 18 Surgical Specimen Invalid Interpretation Code [facility] Comment on above: Result Comment: [place] [address] RQ[facility] SURGICAL PATHOLOGY REPORTPatient Name: MARLENI NGUYEN Accession No: [id number] Age Sex: 1950 Location: DIS [id number] No: [id number] Collected: 06/04/2018Med Rec No: [id number] Received: 06/05/2018Attend Phys: SHAKA DESIRAE Completed: 06/07/2018Perform [...] two cassettes after a brief decalcification. ALDWA/SCDANCPT: [id number] ENGEL M.D. 06/07/2018 Electronically signed out by Page 1 of 1 Basic Metabolic Panelon Anion gap 3 molar conc 14 mmol/L Critically high 7-13 [facility] Calcium mass conc 9.7 mg/dL Normal 8.6-10.2 [facility] Chloride molar conc 100 mmol/L Normal 98-107 [facility] CO2 molar conc 25 mmol/L Normal 22-29 [facility] Creatinine mass conc 1.15 mg/dL Critically high 0.50-0.90 [facility] GFR/1.73 sq M predicted among blacks MDRD vol rate/area (S/P/Bld) 56.7 mL/min/{1.73_m2} Low >60 [facility] Comment on above: Result Comment: >60 mL/min/1.73m2 EGFR, calc. for ages 18 and older using theMDRD formula (not corrected for weight), is valid for stablerenal function. GFR/1.73 sq M.predicted MDRD vol rate/area 46.8 mL/min/{1.73_m2} Low >60 [facility] Comment on above: Result Comment: >60 mL/min/1.73m2 EGFR, calc. for ages 18 and older using theMDRD formula (not corrected for weight), is valid for stablerenal function. Glucose mass conc 107 mg/dL Normal 74-109 [facility] Potassium molar conc 3.6 mmol/L Normal 3.5-5.1 [facility] Sodium molar conc 139 mmol/L Normal 132-144 [facility] Urea nitrogen mass conc 21 mg/dL Normal 8-23 [facility] CBC With Platelet No Differe ntialon 05-23-2018 Erythrocyte distribution width Auto Ratio (RBC) 13.5 % Normal 11.5-14.5 [facility] Hematocrit Auto Volume Fraction (Bld) 44.4 % Normal 37.0-47.0 [facility] Hemoglobin mass conc (Bld) 15.5 g/dL Normal 12.0-16.0 [facility] MCH Auto Entitic mass (RBC) 33.0 pg Critically high 27.0-31.3 [facility] MCHC Auto mass conc (RBC) 34.9 % Normal 33.0-37.0 [facility] MCV Auto Entitic volume (RBC) 94.4 fL Normal 82.0-100.0 [facility] Platelets Auto #/vol (Bld) 199 10*3/uL Normal 130-400 [facility] RBC Auto #/vol (Bld) 4.71 10*6/uL Normal 4.20-5.40 [facility] WBC Auto #/vol (Bld) 7.0 10*3/uL Normal 4.8-10.8 [facility] Culture, MRSA Screenon 05-23 Culture, MRSA Screen ORDERED BY: CLIFTON STONE: Nares Nasal COLLECTED: 05/23/18 11:37ANTIBIOTICS AT SERGIO.: RECEIVED : 05/23/18 11:37Culture, MRSA Screen FINAL 05/24/18 12:57 No MRSA isolated Normal [facility] Culture, Urineon 05-23-2018 Culture, Urine OR DERED BY: CLIFTON STONE: Urine Clean Catch COLLECTED: 05/23/18 12:44ANTIBIOTICS AT SERGIO.: RECEIVED : 05/23/18 12:44Culture, Urine FINAL 05/25/18 10:55 No growth 24 hours Normal [facility] Prothrombin Timeon 8 INR Coag RelTime (PPP) 1.1 {INR} Normal [facility] Comment on above: Result Comment: Neri [...] Coag time (PPP) 11.0 s Normal 9.6-12.3 [facility] Type and Screen Capture 3 sc rn cellon 05-23-2018 Bilirubin mass conc PATIENT: WENDY ANDRADE LOC: [facility] BILL# : [id number] : 1950 SEX: FORDERED BY: CHASE Lua ORDERED : 05/23/2018 09:33 COLLECTED: 05/23/2018 11:41ORDER : [id number] RECEIVED : 05/23/2018 11:41 --------TEST NAME RESULT UNITS RANGES ABN FL STABORH Capture AB POS FAntibody 3 Cell Scrn Captu NEG F --- Normal [facility] Urinalysis, reflex to cultur winnie 05-23-2018 Urine Reflexed to Culture YES Normal [facility] Bilirubin Ql (U) Negative Normal Negative [facility] Clarity Nom (U) Clear Normal Clear [facility] Color Nom (U) Yellow Normal Straw/Stewart [facility] Glucose Ql (U) Negative Normal Negative [facility] Hemoglobin Test strip Ql (U) Negative Normal Negative [facility] Ketones Ql (U) TRACE Abnormal Negative [facility] Leukocyte esterase Test strip Ql (U) TRACE Abnormal Negative [facility] Nitrite Test strip Ql (U) Negative Normal Negative [facility] pH Test strip (U) 6.0 [pH] Normal 5.0-9.0 [facility] Protein Test strip Ql (U) TRACE Abnormal Negative [facility] Specific gravity Relative Density (U) 1.010 Normal 1.005-1.03 [facility] Urobilinogen Test strip Qn (U) 0.2 {Dago'U}/dL Normal < 2.0 [facility] Urine Microscopicon 05-23-20 18 Casts LM.LPF #/area (Urine sed) 0-1 Hyaline Normal [facility] RBC Test strip #/vol (U) 0-2 Normal 0-2 [facility] Urine Amorphous 1+ Normal [facility] WBC #/vol (U) 3-5 Normal 0-5 [facility] XR SPINE ENTIRE (2-3 VIEWS)o n 05-23-2018 XR SPINE ENTIRE (2-3 VIEWS) PREOP NO DICTATION Interpreted by: Barb Wetzel MD Signed by: Barb Wetzel MD 06/08/18 Final result Normal [facility] Vital Signs Date Time Vital Sign Value Performing Clinician Faci byron 11-23-2023 14:31-0500 Body height 160.02 cm II Jack Vogt Work Phone: [facility] 11-23-2023 14:31-0500 Body mass index (BMI) [Ratio] 31 kg/m2 II Jack Vogt Work Phone: [facility] 11-23-2023 14:31-0500 Body weight 79.46 kg II Jack Vogt Work Phone: [facility] 10-23-2023 12:31-0500 Blood Pressure Location Alfredo COELHO [facility] 10-23-2023 12:31-0500 Diastolic blood pressure 83 mm[Hg] Alfredo COELHO [facility] 10-23-2023 12:31-0500 Heart rate 62 /min Alfredo COELHO [facility] 10-23-2023 12:31-0500 Respiratory rate 16 /min Alfredo COELHO [facility] 10-23-2023 12:31-0500 Systolic blood pressure 163 mm[Hg] Alfredo COELHO [facility] 09-26-2022 12:59-0500 Blood Pressure Location Alfredo COELHO [facility] 09-26-2022 12:59-0500 Diastolic blood pressure 76 mm[Hg] Alfredo COELHO [facility] 09-26-2022 12:59-0500 Heart rate 78 /min Alfredo COELHO [facility] 09-26-2022 12:59-0500 Respiratory rate 16 /min Alfredo COELHO [facility] 09-26-2022 12:59-0500 Systolic blood pressure 124 mm[Hg] Alfredo COELHO [facility] 03-04-2022 10:16-0400 Blood Pressure Location Alfredo COELHO [facility] 03-04-2022 10:16-0400 Diastolic blood pressure 70 mm[Hg] Alfredo COELHO [facility] 03-04-2022 10:16-0400 Heart rate 56 /min Alfredo COELHO [facility] 03-04-2022 10:16-0400 Respiratory rate 16 /min [facility] 03-04-2022 10:16-0400 Systolic blood pressure 129 mm[Hg] [facility] En[facility] Encounter Date Encounter Type Care Provider Facility Start: 09-30-2024 ambulatory Alfredo COELHO Facili ty:[facility] Start: 04-24-2024 End: 04-25-2024 ambulatory [facility] Start: 03-20-2024 End: 03-20-2024 ambulatory JACK VOGT Not Available Start: 03-19-2024 End: 03-19-2024 ambulatory Maria Luisa X Orzech Facility:[facility] Start: 03-19-2024 End: 03-19-2024 Patient encounter procedure Maria Luisa X Orzech [facility] Start: 03-05-2024 ambulatory Maria Luisa X Orzech Facilit y:[facility] Start: 02-22-2024 End: 02-22-2024 ambulatory JACK VOGT Not Available Start: 02-15-2024 End: 02-15-2024 ambulatory JACK VOGT Not Available Start: 02-05-2024 End: 02-05-2024 ambulatory Referral Self Facility:[facility] Start: 02-05-2024 End: 02-05-2024 ambulatory II Jack Vogt Work Phone: [facility] Work Phone: Start: 02-05-2024 End: 02-05-2024 Patient encounter procedure II Jack Vogt Work Phone: [facility] Work Phone: Start: 12-13-2023 End: 12-13-2023 ambulatory JACK VOGT Not Available Start: 11-23-2023 End: 11-23-2023 ambulatory Kevin Hamilton II Facility:[facility] Start: 11-23-2023 End: 11-23-2023 Patient encounter procedure II Jack Vogt Work Phone: [facility] Work Phone: Start: 10-23-2023 End: 10-23-2023 ambulatory Alfredo COELHO Facility:[facility] Start: 10-23-2023 End: 10-23-2023 Patient encounter procedure Alfredo COELHO [facility] Start: 10-11-2023 End: 10-11-2023 ambulatory [facility] Start: 10-04-2023 End: 10-04-2023 ambulatory JACK VOGT Not Available Start: 07-21-2023 End: 07-21-2023 ambulatory [facility] Start: 01-18-2023 End: 01-19-2023 ambulatory CARLYN DAR Facility:[facility] Start: 01-10-2023 End: 01-11-2023 ambulatory CARLYN DODGE Facility:[facility] Start: 09-26-2022 End: 09-26-2022 Patient encounter procedure Alfrdeo COELHO [facility] Start: 09-07-2022 End: 09-08-2022 ambulatory SARAY MONCADA Facility:[facility] Start: 08-29-2022 End: 08-30-2022 ambulatory ALFREDO COELHO Facility:[facility] Start: 03-16-2022 End: 03-17-2022 ambulatory JOHN EPPERSON Facility:[facility] Start: 03-04-2022 End: 03-04-2022 Patient encounter procedure Alfredo COELHO [facility] Start: 02-22-2022 End: 02-23-2022 ambulatory ALFREDO COELHO Facility:[facility] Start: 02-16-2022 End: 02-17-2022 ambulatory JOHN EPPERSON Facility:[facility] Start: 02-04-2022 End: 02-05-2022 ambulatory JOHN ZHOU Facility:[facility] Start: 02-02-2022 End: 02-02-2022 Patient encounter procedure II Jack Vogt Work Phone: [facility] Start: 01-31-2022 End: 02-01-2022 ambulatory [facility] Facility:[facility] Start: 06-04-2018 End: 06-07-2018 Evaluation and management of inpatient [facility] Start: 05-23-2018 End: 05-26-2018 [facility] Start: 05-23-2018 End: 05-28-2018 Patient encounter [facility] Procedures Date Procedure Procedure Detail Performing Clinician Start: 02-05-2024 Screening mammograph y of bilateral breasts II Jack Vogt Work Phone: Start: 11-23-2023 Pelvis X-ray II Jack Vogt Work Phone: Start: 11-23-2023 X-ray of both knees II Jack Vogt Work Phone: Start: 02-02-2022 Screening mammograph y of bilateral [...] DESIRAE Start: 06-04-2018 PULSE OXIMETRY, CONTINUOUS SHAKA DEISRAE Start: 06-04-2018 INCENTIVE SPIROMETRY RT SHAKA DESIRAE [...] PATIENT STATUS (FROM ED OR OR/PROCEDURAL) SHAKA DSEIRAE Start: 06-04-2018 TRANSFER PATIENT SHAKA DESIRAE Start: [...] Immunizations Immunization Date Immunization Notes Care Provider Fa andra 07-04-2022 influenza virus vaccine, unspecified formulation Alfredo COELHO [facility] 07-04-2022 SARS-CoV-2 (COVID-19 ) [id number] Alfredocodi COELHO [facility] 06-24-2021 influenza virus vaccine, unspecified formulation Alfredocodi COELHO [facility] 06-24-2021 SARS-CoV-2 (COVID-19 ) mRNA BNT-162b2 vax Alfredo COELHO [facility] Comment on above: Result Comment: 2022: [id number] 11-17-2020 SARS-CoV-2 (COVID-19 ) mRNA BNT-162b2 vax Alfredocodi COELHO [facility] Comment on above: Result Comment: 2022: [id number] 10-27-2020 SARS-CoV-2 (COVID-19 ) mRNA BNT-162b2 vax Alfredocodi COELHO [facility] Comment on above: Result Comment: 2022: [id number] 07-08-2020 influenza virus vaccine, unspecified formulation Alfredocodi COELHO [facility] Payers Date Payer Category Payer Self-pay [id number] 2017 Medicare [id number] 1960 Medicare [id number] 1960 Private Health Insurance 101 [id number] 1950 Unknown [id number] 2.16.840.1.453350.3.579.2.593 1950 Unknown [id number] 2.16.840.1.966538.3.579.2.593 1950 Unknown [id number] 2.16.840.1.511909.3.579.2.593 1950 Unknown [id number] 2.16.840.1.775469.3.579.2.593 1950 Unknown [id number] 2.16.840.1.418742.3.579.2.593 1950 Unknown [id number] 2.16.840.1.703368.3.579.2.593 1950 Unknown [id number] 2.16.840.1.970217.3.579.2.593 1950 Unknown [id number] 2.16.840.1.140544.3.579.2.593 1950 Unknown [id number] 2.16.840.1.117655.3.579.2.593 1950 Unknown [id number] 2.16.840.1.922417.3.579.2.593 1950 Unknown [id number] 2.16.840.1.402344.3.579.2.1259 1950 Unknown [id number] 2.16.840.1.183813.3.579.2.1259 1950 Unknown [id number] 2.16.840.1.193021.3.579.2.1259 1950 Unknown [id number] 2.16.840.1.585789.3.579.2.1259 1950 Unknown [id number] 2.16.840.1.747755.3.579.2.1259 1950 Unknown [id number] 2.16.840.1.060759.3.579.2.727 1950 Unknown [id number] 2.16.840.1.347106.3.579.2.727 1950 Unknown [id number] 2.16.840.1.712111.3.579.2.727 1950 Unknown [id number] 2.16.840.1.289698.3.579.2.727 Medicare Medicare [id number] Medicare Medicare [id number] Private Health Insurance [facility] [id number] Unknown [place] [employer]/BS [id number] Unknown [id number] 2.16.840.1.370277.3.579.2.531 Unknown [id number] 2.16.840.1.565742.3.579.2.531 Social History Date Type Detail Facility Start: 03-25-2021 End: 03-19-2024 Tobacco smoking status NHIS Ex-smoker (finding) [facility] End: 10-11-2020 History of tobacco use [facility] Work Phone: Start: 1950 Sex Assigned At Female [facility] Tobacco smoking status Never [facility] NEGATED: Highlighted row Fir [facility] Functional Status Date Assessment Result Facility 03-19-2024 Functional Status N/A [facility] 10-23-2023 Functional Status N/A [facility] 09-26-2022 Functional Status N/A [facility] 03-04-2022 Functional Status N/A [facility] Clinical Notes 03-04-2022 to 04-24-2024 Note Date & Type Note Facility 04-24-2024 Note [facility] Subjective Marleni Manning Nguyen is a 73 y.o. year old female patient being seen for 6 mo follow up CAD, hypertension, renal artery stenosis, and hx of DVT/PE. Nifedipine was stopped at last apt in Sep 2023. Hydralazine was increased to 100mg TID. PCP switched her from metoprolol to carvedilol. She says he also tried her on clonidine but this made her BP drop very quickly, so she stopped it. Denies chest pain, SOB, palpitations, and bleeding on Eliquis. C/o fatigue and easy bruising. She had routine labs w/ lipid panel in November 2023. Patient Active Problem List Diagnosis Cardiovascular stress [...] dependence Stage 4 chronic kidney disease (CMS/HCC) TOMASA (acute kidney injury) (CMS/HCC) Anemia Left knee pain Localized edema Lower GI bleed Lymphedema Poor dental hygiene Stage 3b chronic kidney disease (CMS/HCC) Urge incontinence Weakness generalized Family History Problem Relation Name Age of Onset Coronary artery disease Mother Stroke Mother Coronary artery disease Father Ovarian cancer Sister Social History Tobacco Use Smoking status: Every Day Types: Cigarettes Passive exposure: Past Smokeless tobacco: Never Tobacco comments: Uses Vuse vape. Nicotine content is 2.4. Substance Use Topics Alcohol use: Not Currently Comment: OCCASIONAL Drug use: Never HPI She is a 73 yo woman with history of CAD s/p [...] hypertriglyceridemia on treatment. Statins cause muscle pain. Her LDL however is around 70-80. She cannot afford PCSK9 inhibitors nor her insurance would cover it. She is exsmoker stopped October 16, 2015 at 2 pm, but back to smoking about half a pack daily. She has history of pulmonary embolism 8 years ago. She had pneumonia at that time. Previously I stopped HCTZ and her renal function returned to normal. A prior CT scan w/o contrast suggested an infrarenal dissection; a repeat CT scan with contrast did not show dissection. She had a DVT in the RUE in 01/2020 and was started on eliquis. Due to repeated episodes of DVT she is currently maintained on low-dose Eliquis 2.5 mg twice daily. at visit of 11/02/2023 I stopped nifedipine due to lower extremity edema and increased hydralazine dosage. I checked a lower extremity ultrasound that did not show any DVT. She has been complaining of generally feeling fatigue and tiredness. She has bilateral lower extremity edema but does not like to take diuretic therapy. She was admitted previously to the [facility] due to significant lower extremity edema. She underwent testing including arterial duplex ultrasound that suggested possible significant stenosis. She denies symptoms of ischemia in the legs. She uses a cane to ambulate. (more content not included)... [facility] 03-19-2024 Hospital Discharge instructions Patient Education 03/19/2024 15:09:24 Urinary Incontinence Urinary Incontinence Urinary incontinence refers to a condition in which a person is unable to control where and when to pass urine. A person with this condition will urinate involuntarily. This means that the person urinates when he or she does not mean to. What are the causes? This condition may be caused by: Medicines. Infections. Constipation. Overactive bladder muscles. Weak bladder muscles. Weak pelvic floor muscles. These muscles provide support for the bladder, intestine, and, in women, the uterus. Enlarged prostate in men. The prostate is a gland near the bladder. When it gets too big, it can pinch the urethra. With the urethra blocked, the bladder can weaken and lose the ability to empty properly. Surgery. Emotional factors, such as anxiety, stress, or post-traumatic stress disorder (PTSD). Spinal cord injury, nerve injury, or other neurological conditions. Pelvic organ prolapse. This happens in women when organs move out of place and into the vagina. This movement can prevent the bladder and urethra from working properly. What increases the risk? The following factors may make you more likely to develop this condition: Age. The older you are, the higher the risk. Obesity. Being physically inactive. and childbirth. Menopause. Diseases that affect the nerves or spinal cord. Long-term, or chronic, coughing. This can increase pressure on the bladder and pelvic floor muscles. What are the signs or symptoms? Symptoms may vary depending on the type of urinary incontinence you have. They include: A sudden urge to urinate, and passing urine involuntarily before you can get to a bathroom (urge incontinence). Suddenly passing urine when doing activities that force urine to pass, such as coughing, laughing, exercising, or sneezing (stress incontinence). Needing to urinate often but urinating only a small amount, or constantly dribbling urine (overflow incontinence). Urinating because you cannot get to the bathroom in time due to a physical disability, such as arthritis or injury, or due to a communication or thinking problem, such as Alzheimer's disease (functional incontinence). How is this diagnosed? This condition may be diagnosed based on: Your medical history. A physical exam. Tests, such as: ?Urine tests. ?X-rays of your kidney and bladder. ?Ultrasound. ?CT scan. ?Cystoscopy. In this procedure, a health care provider inserts a tube with a light and camera (cystoscope) through the urethra and into the bladder to check for problems. ?Urodynamic testing. These tests assess how well the bladder, urethra, and sphincter can store and release urine. There are different types of urodynamic tests, and they vary depending on what the test is measuring. To help diagnose your condition, your health care provider may recommend that you keep a log of when you urinate and how much you urinate. How is this treated? Treatment for this condition depends on the type of incontinence that you have and its cause. Treatment may include: Lifestyle changes, such as: ?Quitting smoking. ?Maintaining a healthy weight. ?Staying active. Try to get 150 minutes of moderate-intensity exercise every week. Ask your health care provider which activities are safe for you. ?Eating a healthy diet. ?Avoid high-fat foods, like fried foods. ?Avoid refined carbohydrates like white bread and white rice. ?Limit how much alcohol and caffeine you drink. ?Increase your fiber intake. Healthy sources of fiber include beans, whole grains, and fresh fruits and vegetables. Behavioral changes, such as: ?Pelvic floor muscle exercises. ?Bladder training, such as lengthening the amount of time between bathroom breaks, or using the bathroom at regular intervals. ?Using techniques to suppress bladder urges. This can include distraction techniques or controlled breathing exercises. Medicines, such as: ?Medicines to relax the bladder muscles and prevent bladder spasms. ?Medicines to help slow or prevent the growth of a man's prostate. ?Botox injections. These can help relax the bladder muscles. Treatments, such as: ?Using pulses of electricity to help change bladder reflexes (electrical nerve stimulation). ?For women, using a medical laboratory assistant to prevent urine leaks. This is a small, tampon-like, disposable device that is inserted into the urethra. ?Injecting collagen or carbon beads (bulking agents) into the urinary sphincter. These can help thicken tissue and close the bladder opening. ?Surgery. Follow these instructions at home: Lifestyle Limit alcohol and caffeine. These can fill your bladder quickly and irritate it. Keep yourself clean to help prevent odors and skin damage. Ask your health care provider about special skin creams and cleansers that can protect the skin from urine. Consider wearing pads or adult diapers. Make sure to change them regularly, and always change them right after experiencing incontinence. General instructions Take vjlu-asb-xapcewh and prescription medicines only as told by your health care provider. Use the bathroom about every 3 4 hours, even if you do not feel the need to urinate. Try to empty your bladder completely every time. After urinating, wait a minute. Then try to urinate again. Make sure you are in a relaxed position while urinating. If your incontinence is caused by nerve problems, keep a log of the medicines you take and the times you go to the bathroom. Keep all follow-up visits. This is important. Where to find more information National [employer] of Diabetes and Digestive and Kidney Diseases: www.niddk.nih.gov [place] [employer]: www.urologyhealth.org Contact a health care provider if: You have pain that gets worse. Your incontinence gets worse. Get help right away if: You have a fever or chills. You are unable to urinate. You have redness in your groin area or down your legs. Summary Urinary incontinence refers to a condition in which a person is unable to control where and when to pass urine. This condition may be caused by medicines, infection, weak bladder muscles, weak pelvic floor muscles, enlargement of the prostate (in men), or surgery. Factors such as older age, obesity, and childbirth, menopause, neurological diseases, and chronic coughing may increase your risk for developing this condition. Types of urinary incontinence include urge incontinence, stress incontinence, overflow incontinence, and functional incontinence. This condition is usually treated first with lifestyle and behavioral changes, such as quitting smoking, eating a healthier diet, and doing regular pelvic floor exercises. Other treatment options include medicines, bulking agents, medical devices, electrical nerve stimulation, or surgery. This information is not intended to replace advice given to you by your health care provider. Make sure you discuss any questions you have with your health care provider. Document Revised: 04/09/2021 Document Reviewed: 04/09/2021 [employer]12 Patient Education 2022 [employer]. Follow Up Care 10/23/2023 13:29:02 With:RONALD BEAULIEU, Alfredo Moya, URL Address: [facility] [address] , [place] [address]- [phone] When: Unknown Comments:6 mos w/ MRI [facility] 03-19-2024 Note Patient Education Urology Urinary Incontinence Urinary incontinence refers to a condition in which a person is unable to control where and when to pass urine. A person with this condition will urinate involuntarily. This means that the person urinates when he or she does not mean to. What are the causes? This condition may be caused by: ? Medicines. ? Infections. ? Constipation. ? Overactive bladder muscles. ? Weak bladder muscles. ? Weak pelvic floor muscles. These muscles provide support for the bladder, intestine, and, in women, the uterus. ? Enlarged prostate in men. The prostate is a gland near the bladder. When it gets too big, it can pinch the urethra. With the urethra blocked, the bladder can weaken and lose the ability to empty properly. ? Surgery. ? Emotional factors, such as anxiety, stress, or post-traumatic stress disorder (PTSD). ? Spinal cord injury, nerve injury, or other neurological conditions. ? Pelvic organ prolapse. This happens in women when organs move out of place and into the vagina. This movement can prevent the bladder and urethra from working properly. What increases the risk? The following factors may make you more likely to develop this condition: ? Age. The older you are, the higher the risk. ? Obesity. ? Being physically inactive. ? and childbirth. ? Menopause. ? Diseases that affect the nerves or spinal cord. ? Long-term, or chronic, coughing. This can increase pressure on the bladder and pelvic floor muscles. What are the signs or symptoms? Symptoms may vary depending on the type of urinary incontinence you have. They include: ? A sudden urge to urinate, and passing urine involuntarily before you can get to a bathroom (urge incontinence). ? Suddenly passing urine when doing activities that force urine to pass, such as coughing, laughing, exercising, or sneezing (stress incontinence). ? Needing to urinate often but urinating only a small amount, or constantly dribbling urine (overflow incontinence). ? Urinating because you cannot get to the bathroom in time due to a physical disability, such as arthritis or injury, or due to a communication or thinking problem, such as Alzheimer's disease (functional incontinence). How is this diagnosed? This condition may be diagnosed based on: ? Your medical history. ? A physical exam. ? Tests, such as: ? Urine tests. ? X-rays of your kidney and bladder. ? Ultrasound. ? CT scan. ? Cystoscopy. In this procedure, a health care provider inserts a tube with a light and camera (cystoscope) through the urethra and into the bladder to check for problems. ? Urodynamic testing. These tests assess how well the bladder, urethra, and sphincter can store and release urine. There are different types of urodynamic tests, and they vary depending on what the test is measuring. To help diagnose your condition, your health care provider may recommend that you keep a log of when you urinate and how much you urinate. How is this treated? Treatment for this condition depends on the type of incontinence that you have and its cause. Treatment may include: ? Lifestyle changes, such as: ? Quitting smoking. ? Maintaining a healthy weight. ? Staying active. Try to get 150 minutes of moderate-intensity exercise every week. Ask your health care provider which activities are safe for you. ? Eating a healthy diet. ? Avoid high-fat foods, like fried foods. ? Avoid refined carbohydrates like white bread and white rice. ? Limit how much alcohol and caffeine you drink. ? Increase your fiber intake. Healthy sources of fiber include beans, whole grains, and fresh fruits and vegetables. ? Behavioral changes, such as: ? Pelvic floor muscle exercises. ? Bladder training, such as lengthening the amount of time between bathroom breaks, or using the bathroom at regular intervals. ? Using techniques to suppress bladder urges. This can include distraction techniques or controlled breathing exercises. ? Medicines, such as: ? Medicines to relax the bladder muscles and prevent bladder spasms. ? Medicines to help slow or prevent the growth of a man's prostate. ? Botox injections. These can help relax the bladder muscles. ? Treatments, such as: ? Using pulses of electricity to help change bladder reflexes (electrical nerve stimulation). ? For women, using a medical laboratory assistant to prevent urine leaks. This is a small, tampon-like, disposable device that is inserted into the urethra. ? Injecting collagen or carbon beads (bulking agents) into the urinary sphincter. These can help thicken tissue and close the bladder opening. ? Surgery. Follow these instructions at home: Lifestyle ? Limit alcohol and caffeine. These can fill your bladder quickly and irritate it. ? Keep yourself clean to help prevent odors and skin damage. Ask your health care provider about special skin creams and cleansers that can protect the (more content not included)... [facility] 10-23-2023 Hospital Discharge instructions Patient Education 10/23/2023 13:23:49 Urinary Incontinence Urinary Incontinence Urinary incontinence refers to a condition in which a person is unable to control where and when to pass urine. A person with this condition will urinate involuntarily. This means that the person urinates when he or she does not mean to. What are the causes? This condition may be caused by: Medicines. Infections. Constipation. Overactive bladder muscles. Weak bladder muscles. Weak pelvic floor muscles. These muscles provide support for the bladder, intestine, and, in women, the uterus. Enlarged prostate in men. The prostate is a gland near the bladder. When it gets too big, it can pinch the urethra. With the urethra blocked, the bladder can weaken and lose the ability to empty properly. Surgery. Emotional factors, such as anxiety, stress, or post-traumatic stress disorder (PTSD). Spinal cord injury, nerve injury, or other neurological conditions. Pelvic organ prolapse. This happens in women when organs move out of place and into the vagina. This movement can prevent the bladder and urethra from working properly. What increases the risk? The following factors may make you more likely to develop this condition: Age. The older you are, the higher the risk. Obesity. Being physically inactive. and childbirth. Menopause. Diseases that affect the nerves or spinal cord. Long-term, or chronic, coughing. This can increase pressure on the bladder and pelvic floor muscles. What are the signs or symptoms? Symptoms may vary depending on the type of urinary incontinence you have. They include: A sudden urge to urinate, and passing urine involuntarily before you can get to a bathroom (urge incontinence). Suddenly passing urine when doing activities that force urine to pass, such as coughing, laughing, exercising, or sneezing (stress incontinence). Needing to urinate often but urinating only a small amount, or constantly dribbling urine (overflow incontinence). Urinating because you cannot get to the bathroom in time due to a physical disability, such as arthritis or injury, or due to a communication or thinking problem, such as Alzheimer's disease (functional incontinence). How is this diagnosed? This condition may be diagnosed based on: Your medical history. A physical exam. Tests, such as: ?Urine tests. ?X-rays of your kidney and bladder. ?Ultrasound. ?CT scan. ?Cystoscopy. In this procedure, a health care provider inserts a tube with a light and camera (cystoscope) through the urethra and into the bladder to check for problems. ?Urodynamic testing. These tests assess how well the bladder, urethra, and sphincter can store and release urine. There are different types of urodynamic tests, and they vary depending on what the test is measuring. To help diagnose your condition, your health care provider may recommend that you keep a log of when you urinate and how much you urinate. How is this treated? Treatment for this condition depends on the type of incontinence that you have and its cause. Treatment may include: Lifestyle changes, such as: ?Quitting smoking. ?Maintaining a healthy weight. ?Staying active. Try to get 150 minutes of moderate-intensity exercise every week. Ask your health care provider which activities are safe for you. ?Eating a healthy diet. ?Avoid high-fat foods, like fried foods. ?Avoid refined carbohydrates like white bread and white rice. ?Limit how much alcohol and caffeine you drink. ?Increase your fiber intake. Healthy sources of fiber include beans, whole grains, and fresh fruits and vegetables. Behavioral changes, such as: ?Pelvic floor muscle exercises. ?Bladder training, such as lengthening the amount of time between bathroom breaks, or using the bathroom at regular intervals. ?Using techniques to suppress bladder urges. This can include distraction techniques or controlled breathing exercises. Medicines, such as: ?Medicines to relax the bladder muscles and prevent bladder spasms. ?Medicines to help slow or prevent the growth of a man's prostate. ?Botox injections. These can help relax the bladder muscles. Treatments, such as: ?Using pulses of electricity to help change bladder reflexes (electrical nerve stimulation). ?For women, using a medical laboratory assistant to prevent urine leaks. This is a small, tampon-like, disposable device that is inserted into the urethra. ?Injecting collagen or carbon beads (bulking agents) into the urinary sphincter. These can help thicken tissue and close the bladder opening. ?Surgery. Follow these instructions at home: Lifestyle Limit alcohol and caffeine. These can fill your bladder quickly and irritate it. Keep yourself clean to help prevent odors and skin damage. Ask your health care provider about special skin creams and cleansers that can protect the skin from urine. Consider wearing pads or adult diapers. Make sure to change them regularly, and always change them right after experiencing incontinence. General instructions Take npfn-qvt-qpdvysk and prescription medicines only as told by your health care provider. Use the bathroom about every 3 4 hours, even if you do not feel the need to urinate. Try to empty your bladder completely every time. After urinating, wait a minute. Then try to urinate again. Make sure you are in a relaxed position while urinating. If your incontinence is caused by nerve problems, keep a log of the medicines you take and the times you go to the bathroom. Keep all follow-up visits. This is important. Where to find more information [employer] of Diabetes and Digestive and Kidney Diseases: www.niddk.nih.gov [place] [employer]: www.urologyhealth.org Contact a health care provider if: You have pain that gets worse. Your incontinence gets worse. Get help right away if: You have a fever or chills. You are unable to urinate. You have redness in your groin area or down your legs. Summary Urinary incontinence refers to a condition in which a person is unable to control where and when to pass urine. This condition may be caused by medicines, infection, weak bladder muscles, weak pelvic floor muscles, enlargement of the prostate (in men), or surgery. Factors such as older age, obesity, and childbirth, menopause, neurological diseases, and chronic coughing may increase your risk for developing this condition. Types of urinary incontinence include urge incontinence, stress incontinence, overflow incontinence, and functional incontinence. This condition is usually treated first with lifestyle and behavioral changes, such as quitting smoking, eating a healthier diet, and doing regular pelvic floor exercises. Other treatment options include medicines, bulking agents, medical devices, electrical nerve stimulation, or surgery. This information is not intended to replace advice given to you by your health care provider. Make sure you discuss any questions you have with your health care provider. Document Revised: 04/09/2021 Document Reviewed: 04/09/2021 [employer]12 Patient Education 2022 [employer]. Follow Up Care 07/28/2023 12:50:01 With:RONALD BEAULIEU, Alfredo Moya, URL Address: [facility] [address] , [place] [address]- [phone] When: Unknown [facility] [place] 10-11-2023 Note [facility] Subjective Marleni Nguyen is a 72 y.o. year old female patient being seen for follow up [facility] for LE edema. She was seen as [...] therapy. She was admitted recently to the [facility] due to significant lower extremity edema. She [...] myalgias. Genitourinary: Posi (more content not included)... [facility] 07-21-2023 Note [facility] Subjective Marleni Nguyen is a 72 [...] of both knees Pulmonary embolism with infarction ([facility]/HCC) Statin intolerance Type 2 diabetes mellitus with other diabetic kidney complication ([facility]/HCC) Tobacco dependence Stage 4 chronic kidney disease ([facility]/HCC) Family History Problem Relation Name Age of [...] Exam Constitutional: Appearance: (more content not included)... [facility] 09-26-2022 Hospital Discharge instructions Patient Education 09/26/2022 13:45:35 Urinary Tract Infection, Adult, Ixrv-[id number]-[id number] Urinary Tract Infection, Adult A urinary tract [...] Follow these instructions at home: Medicines Take cbtz-dli-pafouyx and prescription medicines only as told by [...] 02/20/2009 Document Revised: 08/22/2019 Document Reviewed: 03/14/2019 [employer]12 Patient Education 2020 [employer]. Follow Up Care 03/04/2022 10:43:44 With:RONALD BEAULIEU, Alfredo Moya, URL Address: [facility] [address] [place] [address] [phone] When:Within 10 Month(s) Comments:CT JAK w/ contrast [facility] 03-04-2022 Hospital Discharge instructions Patient Education 03/04/2022 [...] Treatment for this condition includes: Antibiotic medicine. Ddxd-ria-bllrqea medicines to treat discomfort. Drinking enough water [...] Follow these instructions at home: Medicines Take hvet-ybp-zfpfwvi and prescription medicines only as told by [...] 06/14/2006 Document Revised: 08/22/2019 Document Reviewed: 03/14/2019 KS12 Patient Education 2020 [employer]. Follow Up Care 06/28/2021 14:36:35 With:RONALD BEAULIEU, Alfredo Moya, URL Address: [facility] [address], [place] [address]- [phone] When:09/03/2022 [facility] Evaluation + Plan note Future Appointments Appointment Date:08/29/2022 01:30:00 PM Scheduled Provider:Alfredo COELHO MD [facility] Appointment Type:URO Office Visit [facility] Evaluation + Plan note Future Appointments Appointment Date:07/24/2023 01:15:00 PM Scheduled Provider:Alfredo COELHO MD Location:[facility] Appointment Type:URO Office Visit [facility] Evaluation + Plan note Future Appointments Appointment Date:01/22/2024 11:45:00 AM Scheduled Provider:Alfredo COELHO MD Location:[facility] Appointment Type:URO Office Visit [facility] Evaluation + Plan note Future Appointments Appointment Date:09/30/2024 01:15:00 PM Scheduled Provider:Alfredo COELHO MD Location:[facility] Appointment Type:URO Office Visit [facility] Evaluation note No assessment inform ation available [facility] Work Phone: Evaluation note Diagnosis Onset Date Bilateral primary osteoarthritis of knee acute Lymphedema acute Nicotine use acute Poor dental hygiene acute Weakness generalized acute [facility] Work Phone: Hospital course Narrative No data available for this section [facility] progress note No data available for this section [facility] Summary Purpose Family History No Family History Records Found Relationship Condition Age at Onset Recorded Date/T katherine Not Specified Myocardial infarction Unknown father Myocardial infarction Unknown Advance Directives No Advanced Directives Records Found Advance Directive Response Recorded Date/ Time Advance Directives No May 2:17pm Chief Complaint and Reason for Visit Chief Complaint Screening Chief Complaint NEW TEJ KNEE PAIN NX M25.562 - Pain in left knee Screening Reason for Visit Bilateral primary os teoarthritis of knee Lymphedema Nicotine use Poor dental hygiene Weakness generalized Additional Source Comments INFORMATION SOURCE (unrecogn ized section and content) DATE CREATED AUTHOR 07/06/2018 [facility] DATE CREATED AUTHOR AUTHOR'S ORGANIZ ATION 01/26/2023 [facility] DATE CREATED AUTHOR AUTHOR'S ORGANIZ ATION 02/10/2024 [facility] DATE CREATED AUTHOR AUTHOR'S ORGANIZ ATION 03/21/2024 [facility] EPIC DATE CREATED AUTHOR AUTHOR'S ORGANIZ ATION 05/22/2024 [facility] DATE CREATED AUTHOR AUTHOR'S ORGANIZ ATION 08/30/2024 [facility] Care Teams (unrecognized sec tion and content) Team Status: Inactive Member Role Status Dates Jack Vogt II MD Primary Care Provider, Referring Provider Active Referral Self Attending Provider Active Team Status: Active Member Role Status Dates Jack Vogt II MD Primary Care Provider Active Team Status: Inactive Member Role Status Dates Jack Vogt II MD Primary Care Provider Active Start: November 23, 2023 End: November 23, 2023 Kevin Hamilton II, MD Attending Provider Active Start: November 23, 2023 End: November 23, 2023 Team Status: Inactive Member Role Status Dates Jack Vogt II MD Primary Care Provider Active Start: February 05, 2024 End: February 05, 2024 Referral Self Attending Provider Active Start: Courtney ramirez 2023 End: February 05, 2024 Goals (unrecognized section and content) Goals may be documented in a n alternate section No data available for this section No data available for this section No data available for this sectionGoals may be documented in an alternate section No data available for this [...] BE BASED ON THE PRIMARY CLINICAL RECORDS. [facility]. provides no warranty or guarantee of the accuracy or completeness of information in this document.
--- NOTE | 2024-09-13 13:28 | MR_ITS ---
The [address] [address] Patient Name: LUPE NGUYEN MRN: [id number] date: 1950 Sex: F Assigned Patient Location: LAB Current Patient Location: LAB Accession/Order Number: [id number] Exam Date: 09/13/2024 13:35 Report Date: 09/20/2024 17:13 At the request of: ALFREDO CARDENAS Procedure: MR abdomen wo/w con EXAM: MR abdomen wo/w con 09/13/2024. COMPARISON: MRI of the abdomen with and without contrast 07/24/2023. CT of the abdomen and pelvis without contrast 03/24/2021. TECHNIQUE: Coronal T2, axial T1 in and out of phase, axial T2 with fat saturation as well as axial and coronal T1 fat-saturated images of the abdomen obtained. Sagittal T2 images were obtained. Axial and coronal T1 postcontrast images were obtained in the nephrographic phase. HISTORY: Kidney Lesion N28.9 FINDINGS: Prior median sternotomy is identified. Right hepatic lobe measures 15.7 cm superior to inferior. The spleen measures 11.4 cm superior to inferior. Gallbladder is surgically absent. 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 Incidental note of severe degenerative changes as well as mild lumbar levocurvature. Posterior dory and screw fixation is identified. Bowel pattern does not appear to be obstructive. Heart size is stable. Lung bases are clear. Pancreas appears unremarkable. Both adrenals maintain adreniform shape and are similarly hyperplastic. Similar mild global atrophic changes of both kidneys, asymmetrically greater toward the right. Intracortical image bilateral within the posterior cortex midpole level of the right kidney, axial image 14 of out of phase T1 image measures 6 mm in diameter. Midpole lesion posteromedially on the left with similar appearance measures 6 mm, image #15. These foci are increased in signal intensity on the T1 in phase images. These are unchanged compared to CT study from 03/24/2021. Hemorrhagic/proteinaceous cyst at the upper pole of the right kidney seen anterolaterally on image 12 of series 7 measures 10 mm in diameter. Small exophytic cyst inferior pole left kidney again noted measuring 9 mm. Intracortical hemorrhagic/proteinaceous cyst at the upper pole of the left kidney measures 10 mm, image 8 of series 8. These are unchanged. Right kidney has superior to inferior length of 9.1 cm as compared to left kidney at 10.9 cm. MR/MR abdomen wo/w con IMPRESSION: 1. Stable combination of simple and hemorrhagic/proteinaceous small bilateral renal cysts as described unchanged. 2. 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 3. 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 4. Prior cholecystectomy. Overall no acute intra-abdominal process. 5. Severe multilevel degenerative changes of the thoracic and lumbar spine with lumbar levoscoliosis. Posterior dory and screw fixation of the lumbar spine from L4 through S1 levels identified. Electronically authenticated by: TAWANNA WATKINS Date: 09/20/2024 17:13
[2024-09-13 13:32] LABS: Estimated GFR (African America 39 (>=60 mL/min/1.73m^2); Estimated GFR (Non-African Ame 32 (>=60 mL/min/1.73m^2)
== END 2024-09-13 13:15 | disposition home or self-care (01) ==
LOC: LAB 13:15
PROVIDERS: PCP Internal Medicine; Visit Provider Urology
DX: N28.9 Disorder of kidney and ureter, unspecified (principal); N28.1 Cyst of kidney, acquired; Z86.018 Personal history of other benign neoplasm; M51.369 Other intervertebral disc degeneration, lumbar region without mention of lumbar back pain or lower extremity pain
CPT/HCPCS: 36415; 74183; 82565; A9575

== ENCOUNTER 2025-03-12 16:03 | Emergency (ER) | payer MEDICARE, SELFPAY ==
[2025-03-12] VITALS (62 sets, daily range): BP systolic 168–270; BP diastolic 80–130; PULSE 72–123; TEMP 36.8; O2SAT 92–98; BMI 25.9
--- OUTSIDE RECORDS SUMMARY | 2025-03-12 16:09 | XMS_ITS | Encounter Summary ---
Author Organization [facility] Address [address] [facility] [place] [address] Care Team Providers Care Electric Motor Control Assembler Name Role Phone Jack Vogt MD Primary Care Provider [phone] Encounter Details Date Type Department Care Team ([facility] Contact Info) Description 09/21/2023 Abstract [facility] 112 [facility] 110 [place] [id number] Jack Vogt MD 112 [facility] 110 [place] [address] Social History Tobacco Use Types Packs/Day Years Used Date Smoking Tobacco: Never Smokeless Tobacco: Never Alcohol Use Standard Drinks/Week Comments Not Asked 0 (1 standard drink = 0.6 oz pur e alcohol) caffeine yes type:coffee Comments Unknown Sex and Gender Information Value Date Recorded Sex Assigned at Not on file Legal Sex Female 6:57 PM EDT Gender Identity Not on file Sexual Orientation Not on file documented as of this encounter Plan of Treatment Upcoming Encounters Date Type Department Care Team ([facility] Contact Info) Description 03/17/2025 2:30 PM EDT Ancillary Procedure [facility] ULTRASOUND [address] [place] [address] 03/17/2025 3:00 PM EDT Ancillary Procedure [facility] DXA [address] [place] [address] documented as of this encounter Visit Diagnoses Not on filedocumented in this encounter Care Teams Electric Motor Control Assembler Relationship Specialty Start Date End Date Jack oVgt MD 112 [facility] 110 [place] [address] PCP - General Internal Medicine 01/24/23 documented as of this encounter
--- OUTSIDE RECORDS SUMMARY | 2025-03-12 16:09 | XMS_ITS | Encounter Summary ---
Author Organization [facility] Address [address] [place] [address] Care Team Providers Care Fagot Heater Helper Name Role Phone Jack Vogt MD Primary Care Provider [phone] Encounter Details Date Type Department Care Team (Late Contact Info) Description 10/18/2023 Clinisync Result Encounter [facility] External Department Unsolicited Provider, Generic External Data Social History Tobacco Use Types Packs/Day Years [...] Upcoming Encounters Date Type Department Care Team (Late Contact Info) Description 03/17/2025 2:30 PM EDT Ancillary Procedure [facility] ULTRASOUND [address] [place] [address] 03/17/2025 3:00 PM EDT Ancillary Procedure [facility] DXA [address] [place] [address] documented as of this encounter Procedures Procedure Name Priority Date/Time Associated Diagnosis Comments US LEG LEFT VENOUS + DOPPLER 10/18/2023 4:32 PM EST documented in this encounter Results * US LEG LEFT VENOUS + DOPPLER (10/18/2023 4:32 PM EST) Anatomical Region Laterality Modality Radiographic Ruma ging 10/18/2023 4:32 PM EST Narrative 10/18/2023 4:35 [place] [address] Ultrasound Report Signed Patient: LUPE NGUYEN MR#: [id number] : 1950 Acct:[id number] Age/Sex: 72 / F ADM Date: 10/18/23 Loc: US Attending Dr: SACHIN MATTHEWS Ordering Physician: SACHIN MATTHEWS Date of Service: 10/18/23 Procedure(s): US venous doppler LE BI Accession Number(s): [id number] cc: JACK VOGT ; SACHIN MATTHEWS [place] [id number] Patient Name: LUPE NGUYEN MRN: [id number] date: 1950 Sex: F Assigned Patient Location: US Current Patient Location: US Accession/Order Number: [id number] Exam Date: 10/18/2023 15:08 Report Date: 10/18/2023 16:32 At the request of: SACHIN MATTHEWS Procedure: US venous doppler LE BI EXAM: US venous doppler LE BI HISTORY: R60.0 localized edema COMPARISON: None. TECHNIQUE: Grayscale, color and Doppler FINDINGS: Right leg: Thrombus: Echogenic thrombus identified in the mid small saphenous vein. No echogenic thrombus in the deep system. Flow: Decreased and absent flow corresponding to thrombus Compressibility: Normal compressibility of the deep system Augmentation: Normal compressibility of the deep system Left leg: Thrombus: None Flow: Normal Compressibility: Normal Augmentation: Normal Other: Subcutaneous edema of the calf US/US venous doppler LE BI IMPRESSION: Occlusive and nonocclusive superficial vein thrombus in the small saphenous vein No deep vein thrombus identified in the right or left leg Moderate left calf soft tissue swelling Electronically authenticated by: HENRY PARKER Date: 10/18/2023 16:32 Dictated By: Henry Parker M.D. Signed By: 10/18/23 1636 DD/ 163 TD/TT: Emergency Room Physician: Procedure Note Radiology, Radiologist, MD - 10/18/2023 [place] [address] Ultrasound Report Signed Patient: LUPE NGUYEN LMR#: [id number] : 1950Acct:[id number] Age/Sex: 72 / FADM Date: 10/18/23 Loc: US Attending Dr: SACHIN MATTHEWS Ordering Physician: SACHIN MATTHEWS Date of Service: 10/18/23 Procedure(s): US venous doppler LE BI Accession Number(s): [id number] cc: JACK VOGT ; SACHIN MATTHEWS [place] [address] Patient Name: LUPE NGUYEN MRN: [id number] date: 1950 Sex: F Assigned Patient Location: US Current Patient Location: US Accession/Order Number: [id number] Exam Date: 10/18/2023 15:08 Report Date: 10/18/2023 16:32 At the request of: SACHIN MATTHEWS Procedure: US venous doppler LE BI EXAM: US venous doppler LE BI HISTORY: R60.0 localized edema COMPARISON: None. TECHNIQUE: Grayscale, color and Doppler FINDINGS: Right leg: Thrombus: Echogenic thrombus identified in the mid small saphenous vein.No echogenic thrombus in the deep system. Flow: Decreased and absent flow corresponding to thrombus Compressibility: Normal compressibility of the deep system Augmentation: Normal compressibility of the deep system Left leg: Thrombus: None Flow: Normal Compressibility: Normal Augmentation: Normal Other: Subcutaneous edema of the calf US/US venous doppler LE BI IMPRESSION: Occlusive and nonocclusive superficial vein thrombus in the smallsaphenous vein No deep vein thrombus identified in the right or left leg Moderate left calf soft tissue swelling Electronically authenticated by: HENRY PARKER Date: 10/18/2023 16:32 Dictated By: Henry Parker M.D. Signed By:10/18/23 1635 DD/ 31 TD/TT: Emergency Room Physician: us Generic External Data Provider IMG XR PROCEDURES Final Result documented in this encounter Visit Diagnoses Not on filedocumented in this encounter Care Teams Fagot Heater Helper Relationship Specialty Start Date End Date aJck Vogt MD [address] [address] PCP - General Internal Medicine 01/24/23 documented as of this encounter
--- OUTSIDE RECORDS SUMMARY | 2025-03-12 16:09 | XMS_ITS | Encounter Summary ---
Author Organization [facility] Address [address] [facility] [place] [address] Care Team Providers Care Day Care Center Director Name Role Phone Jack Vogt MD Primary Care Provider [phone] Encounter Details Date Type Department Care Team (Late Contact Info) Description 10/19/2023 Orders Only [facility] [address] [place] [address] A, Unknown Practice [address] [place], [place] [address] Social History Tobacco Use Types Packs/Day Years [...] ULTRASOUND [address] [place] [address] 03/17/2025 3:00 PM EDT Ancillary Procedure [facility] DXA [address] [place] [address] documented as of this encounter Procedures Procedure Name Priority Date/Time Associated Diagnosis Comments US VENOUS DUPLEX BILATERAL Routine 10/18/2023 8:34 AM EST documented in this encounter Results * US VENOUS DUPLEX BILATERAL (10/18/2023 8:34 AM EST) Anatomical Region Laterality Modality Radiographic Ruma ging us Unknown Practice A IMG XR PROCEDURES Final Resul t documented in this encounter Visit Diagnoses Not on filedocumented in this encounter Care Teams Day Care Center Director Relationship Specialty Start Date End Date Jack Vogt MD 112 [place] [address] PCP - General Internal Medicine 01/24/23 documented as of this encounter
--- OUTSIDE RECORDS SUMMARY | 2025-03-12 16:09 | XMS_ITS | Encounter Summary ---
Author Organization [facility] Address [address] [facility] [place] [address] Care Team Providers Care Produce Team Lead Name Role Phone Jack Vogt MD Primary Care Provider [phone] Encounter Details Date Type [facility] Description 10/18/2023 Abstract [facility] 112 [facility] 110 [place] [phone] Jack Vogt MD 112 [facility] 110 [place] [address] Social History Tobacco Use Types Packs/Day Years [...] Upcoming Encounters Date Type Department [facility] Description 03/17/2025 2:30 PM EDT Ancillary Procedure [facility] ULTRASOUND [address] [place] [address] 03/17/2025 3:00 PM EDT Ancillary Procedure [facility] DXA [address] [place] [address] documented as of this encounter Visit Diagnoses Not on filedocumented in this encounter Care Teams Produce Team Lead Relationship Specialty Start Date End Date Jack Vogt MD 112 [facility] [address] [place] [address] PCP - General Internal Medicine 01/24/23 documented as of this encounter
--- OUTSIDE RECORDS SUMMARY | 2025-03-12 16:09 | XMS_ITS | Encounter Summary ---
Author Organization [facility] Address [address] [facility] [place] [address] Care Team Providers Care Route Driver Name Role Phone Jack Vogt MD Primary Care Provider [phone] Encounter Details Date Type Department Care Team (Late Contact Info) Description 09/19/2023 Orders Only [facility] [address] [place] [address] A, Unknown Practice [address] [place], [place] [id number] Social History Tobacco Use Types Packs/Day Years [...] ULTRASOUND [address] [place] [address] 03/17/2025 3:00 PM EDT Ancillary Procedure [facility] DXA [address] [place] [address] documented as of this encounter Procedures Procedure Name Priority Date/Time Associated Diagnosis Comments VASC US LOWER EXTREMITY ARTERIAL DUPLEX LEFT Routine 09/18/2023 9:00 AM EST documented in this encounter Results * Vascular US lower extremity arterial duplex left (09/18/2023 9:00 AM EST) Anatomical Region Laterality Modality Lower Extremities Ultrasound us Unknown Practice A IMG US PROCEDURES Final Resul t documented in this encounter Visit Diagnoses Not on filedocumented in this encounter Care Teams Route Driver Relationship Specialty Start Date End Date Jack Vogt MD 112 [place] [address] PCP - General Internal Medicine 01/24/23 documented as of this encounter
--- OUTSIDE RECORDS SUMMARY | 2025-03-12 16:09 | XMS_ITS | Encounter Summary ---
Author Organization [facility] Address [address] [facility] [place] [address] Care Team Providers Care Structural Engineering Project Manager Name Role Phone Jack Vogt MD Primary Care Provider [phone] Encounter Details Date Type Department Care Team (Late Contact Info) Description 09/20/2023 Orders Only [facility] [address] [place] [address] A, Unknown Practice [address] [place], [place] [phone] Social History Tobacco Use Types Packs/Day Years [...] [facility] ULTRASOUND [address] [place] [address] 03/17/2025 3:00 PM EDT Ancillary Procedure [facility] DXA [address] [place] [address] documented as of this encounter Procedures Procedure Name Priority Date/Time Associated Diagnosis Comments XR CHEST 1 VIEW Routine 09/19/2023 8:07 AM EST XR CHEST 1 VIEW Routine 09/19/2023 8:00 AM EST documented in this encounter Results * XR chest 1 view (09/19/2023 8:07 AM EST) Anatomical Region Laterality Modality Chest Radiographic Ruma ging us Unknown Practice A IMG XR PROCEDURES Final Resul t * XR chest 1 view (09/19/2023 8:00 AM EST) Anatomical Region Laterality Modality Chest Radiographic Ruma ging us Unknown Practice A IMG XR PROCEDURES Final Resul t documented in this encounter Visit Diagnoses Not on filedocumented in this encounter Care Teams Structural Engineering Project Manager Relationship Specialty Start Date End Date Jack Vogt MD 112 [place] [address] PCP - General Internal Medicine 01/24/23 documented as of this encounter
--- OUTSIDE RECORDS SUMMARY | 2025-03-12 16:09 | XMS_ITS | Encounter Summary ---
Author Organization [facility] Address [address] [facility] [place] [address] Care Team Providers Care Pumper Hand Name Role Phone Jack Vogt MD Primary Care Provider [phone] Encounter Details Date Type Department Care Team ([facility] Contact Info) Description 09/20/2023 Abstract [facility] CI FM 112 [facility] 110 [place] [phone] Jack Vogt MD 112 [facility] 110 [place] [address] Social History Tobacco Use Types Packs/Day Years [...] Upcoming Encounters Date Type Department Care Team ([facility] Contact Info) Description 03/17/2025 2:30 PM EDT Ancillary Procedure [facility] ULTRASOUND [address] [place] [address] 03/17/2025 3:00 PM EDT Ancillary Procedure [facility] DXA [address] [place] [address] documented as of this encounter Visit Diagnoses Not on filedocumented in this encounter Care Teams Pumper Hand Relationship Specialty Start Date End Date Jack Vogt MD 112 [facility] 110 [place] [address] PCP - General Internal Medicine 01/24/23 documented as of this encounter
--- OUTSIDE RECORDS SUMMARY | 2025-03-12 16:10 | XMS_ITS | Encounter Summary ---
Author Organization [facility] Address [address] [facility] [place] [address] Care Team Providers Care Director Of Strategic Alliances Name Role Phone Jack Vogt MD Primary Care Provider [phone] Encounter Details Date Type Department Care Team (Late Contact Info) Description 02/08/2023 Abstract [facility] [address] [facility] 110 [place] [phone] Jack Vogt MD [address] [facility] 110 [place] [address] Social History Tobacco Use Types Packs/Day Years Used Date Smoking Tobacco: Never Assessed Comments Unknown Sex and Gender Information Value Date Recorded Sex Assigned at Not on file Legal Sex Female 6:57 PM EDT Gender Identity Not on file Sexual Orientation Not on file documented as of this encounter Plan of Treatment Upcoming Encounters Date Type Department Care Team ([facility] Contact Info) Description 03/17/2025 2:30 PM EDT Ancillary Procedure [facility] ULTRASOUND [address] [place] [address] 03/17/2025 3:00 PM EDT Ancillary Procedure [facility] DXA [address] [place] [address] documented as of this encounter Visit Diagnoses Not on filedocumented in this encounter Care Teams Director Of Strategic Alliances Relationship Specialty Start Date End Date Jack Vogt MD [address] [facility] 110 [place] [address] PCP - General Internal Medicine 01/24/23 documented as of this encounter
--- OUTSIDE RECORDS SUMMARY | 2025-03-12 16:10 | XMS_ITS | Encounter Summary ---
Author Organization [facility] Address [address] [facility] [place] [address] Care Team Providers Care Vocational Guidance Counselor Name Role Phone Jack Vogt MD Primary Care Provider [phone] Encounter Details Date Type Department Care Team (Late Contact Info) Description 02/26/2025 Abstract [facility] 112 [facility] 110 [place] [phone] Jack Vogt MD 112 [facility] 110 [place] [address] Social History Tobacco Use Types Packs/Day Years Used Date Smoking Tobacco: Never Smokeless Tobacco: Never Alcohol Use Standard Drinks/Week Comments Defer 0 (1 standard drink = 0.6 oz pur e alcohol) caffeine yes type:coffee PHQ-2 Answer Date Recorded Patient Health Questionnaire-2 Score 4 02/25/2025 Comments Unknown Sex and Gender Information Value [...] ULTRASOUND [address] [place] [address] 03/17/2025 3:00 PM EDT Ancillary Procedure [facility] DXA [address] [place] [address] documented as of this encounter Goals Goal Patient Goal Type Associated Problems Recent Progress Patient-Stated? Author Help patient manage antidepressant medication Care Plan Patient on antidepressant monitoring plan No Renetta Burton, MIGRATORY GAME BIRD BIOLOGIST documented as of this encounter Visit Diagnoses Not on filedocumented in this encounter Additional Health Concerns Active Problems Noted Date Diagnosed Date Patient on antidepressant monitoring plan 2024 Assessment Noted Time PHQ-9 Depression Total Score: 15 025 11:31 AM EDT documented as of this encounter Care Teams Vocational Guidance Counselor Relationship Specialty Start Date End Date Jack Vogt MD [address] [address] PCP - General Internal Medicine 01/24/23 documented as of this encounter
--- OUTSIDE RECORDS SUMMARY | 2025-03-12 16:10 | XMS_ITS | Encounter Summary ---
Author Organization [facility] Address [address] [place] [address] Care Team Providers Care Early Childhood Services Coordinator Name Role Phone Jack Vogt MD Primary Care Provider [phone] Encounter Details Date Type Department Care Team (Late Contact Info) Description 08/18/2023 Clinisync Result Encounter [facility] External Department Unsolicited [...] Upcoming Encounters Date Type Department Care Team ([facility] Contact Info) Description 03/17/2025 2:30 PM EDT Ancillary Procedure [facility] ULTRASOUND [address] [place] [address] 03/17/2025 3:00 PM EDT Ancillary Procedure [facility] DXA [address] [place] [address] documented as of this encounter Procedures Procedure Name Priority Date/Time Associated Diagnosis Comments CA ECHO DOPPLER COMPLETE 08/18/2023 7:51 PM EST documented in this encounter Results * CA ECHO DOPPLER COMPLETE (08/18/2023 7:51 PM EST) Anatomical Region Laterality Modality Other 08/18/2023 7:51 PM EST Narrative 08/18/2023 7:51 [place] [address] Cardiology Report Signed Patient: LUPE NGUYEN MR#: [id number] : 1950 Acct:[id number] Age/Sex: 72 / F ADM Date: 08/17/23 Loc: CARD Attending Dr: SACHIN AGUILERA Ordering Physician: SACHIN AGUILERA Date of Service: 08/17/23 Procedure(s): CA echo doppler complete Accession Number(s): [id number] cc: Patient Name: LUPE NGUYEN MR#: [id number] : 1950 Exam Date: 08/17/2023 Ordering Doctor: DR SACHIN AGUILERA M.D. ECHOCARDIOGRAM REPORT PROCEDURE: CA ECHO DOPPLER COMPLETE INDICATIONS: Hypertension, aortic insufficiency, CABGx3, heart stents, myocardial infarction COMPARISON: None. DESCRIPTION: COMPLETE ECHOCARDIOGRAM Real-time transthoracic echocardiography with 2D, M-mode, spectral and color flow Doppler performed. QUALITY: Technical quality was good. 60 , 175# , BSA 1.76 m2 LEFT VENTRICLE: Normal chamber size. Moderate concentric left ventricular hypertrophy. Normal systolic function. LV EF: Normal left ventricular ejection fraction, (55%). DIASTOLIC: Grade I diastolic dysfunction. ATRIAL SEPTUM: Possible ASD vs PFO. LEFT ATRIUM: Moderate dilatation. RIGHT ATRIUM: Moderate dilatation. RIGHT VENTRICLE: Mild dilatation. Mildly decreased right ventricular systolic function. TRICUSPID VALVE: Normal mobility and thickness. No stenosis with mild regurgitation. Doppler studies reveal mildly (35-45) elevated right sided pressures. RVSP 36 mmHg MITRAL VALVE: Moderately thickened with normal mobility. No evidence of mitral valve stenosis. There is no mitral annular calcification. Mild mitral regurgitation. AORTIC VALVE: Normal trileaflet appearance. Mildly calcified aortic valve. Normal leaflet mobility. No evidence of aortic valve stenosis. Mild to moderate aortic regurgitation. AORTIC ROOT: Normal diameter and appearance. PULMONIC VALVE: Normal thickness and mobility. No stenosis. Trivial regurgitation. PERICARDIUM: Trivial pericardial effusion. IVC: Collapses with inspirations. PLEURA: CONCLUSION: 1. Moderate concentric left ventricular hypertrophy with normal left ventricular systolic function. Estimated LVEF is 55%. 2. The right ventricle is mildly dilated with mildly reduced systolic function. 3. Mild diastolic dysfunction. 4. Moderate biatrial dilatation. 5. Mild to moderate aortic regurgitation. 6. Mild mitral and tricuspid regurgitation. 7. Mildly elevated right-sided pressures. 8. Color-flow Doppler indicates interatrial septal communication with [id number] shunting suggestive of possible small atrial septal defect. Adult Echocardiography Procedure Report Left Ventricle LVEDD (3.7 - 5.6 cm): 4.46 cm LVESD (2.2 - 4.0 cm): 2.92 cm LVIVS thickness (0.6 - 1.2 cm): 1.45 cm LVPW thickness (0.5 - 1.0 cm): 1.25 cm e': 0.06 m/s E - e': 12.91 LVOT Max Gradient: 2.15 mm[Hg] LVOT Area (cm2): 0.73 m/s Peak Velocity (LVOT): 0.73 m/s Mean Velocity (LVOT): 0.50 m/s LVOT Diameter 2.40 cm Left Atrium LA Volume Index (2D A2C): 53.65 ml/m2 Left Atrium Systolic Dimension: 4.90 cm Mitral Valve MV E to A Ratio: 0.72 Mitral Valve A-Wave Peak Velocity: 1.09 m/s Mitral Valve E-Wave Peak Velocity: 0.79 m/s Right Ventricle Aorta AO Root Diam: 2.91 cm Ascending Ao Diam: 2.75 cm Aortic Valve AoV Area (Peak Aakash): 2.42 cm2, 2.42 cm2 AoV Area (VTI): 2.65 cm2, 2.65 cm2 Peak Velocity(Antegrade Flow): 1.37 m/s Peak Gradient(Antegrade Flow): 7.46 mm[Hg] Mean Velocity(Antegrade Flow): 0.86 m/s Mean Gradient(Antegrade Flow): 3.49 mm[Hg] Velocity Time Integral: 33.44 cm Tricuspid Valve Peak Velocity (Regurgitant Flow): 2.60 m/s, 2.90 m/s, 2.63 m/s Pulmonic Valve Mean Gradient: 1.50 mm[Hg] Mean Velocity: 0.59 m/s Peak Velocity: 0.74 m/s, 0.80 m/s Peak Gradient: 2.20 mm[Hg], 2.55 mm[Hg] Right Atrium Right Atrium Systolic Pressure: 49.15 ml, 49.15 ml Dictated by: Sachin Aguilera M.D. on 08/18/2023 at 19:42 Approved by: Sachin Aguilera M.D. on 08/18/2023 at 19:51 Dictated By: SACHIN AGUILERA Signed By: 08/18/231951 DD/ 50 TD/TT: Animal Shelter Clerk: Procedure Note Radiology, Radiologist, MD - 08/18/2023 [place] [address] Cardiology Report Signed Patient: LUPE NGUYEN LMR#: [id number] : 1950Acct:[id number] Age/Sex: 72 / FADM Date: 08/17/23 Loc: CARD Attending Dr: SACHIN AGUILERA Ordering Physician: SACHIN AGUILERA Date of Service: 08/17/23 Procedure(s): CA echo doppler complete Accession Number(s): [id number] cc: Patient Name: LUPE NGUYEN MR#: [id number] : 1950 Exam Date: 08/17/2023 Ordering Doctor: DR SACHIN AGUILERA M.D. ECHOCARDIOGRAM REPORT PROCEDURE: CA ECHO DOPPLER COMPLETE INDICATIONS: Hypertension, aortic insufficiency, CABGx3, heart stents, myocardial infarction COMPARISON: None. DESCRIPTION: COMPLETE ECHOCARDIOGRAM Real-time transthoracic echocardiography with 2D, M-mode, spectral and color flow Dopplerperformed. QUALITY: Technical quality was good. 60 , 175# , BSA 1.76 m2 LEFT VENTRICLE: Normal chamber size. Moderate concentric leftventricular hypertrophy. Normal systolic function. LV EF: Normal left ventricular ejection fraction, (55%). DIASTOLIC: Grade I diastolic dysfunction. ATRIAL SEPTUM: Possible ASD vs PFO. LEFT ATRIUM: Moderate dilatation. RIGHT ATRIUM: Moderate dilatation. RIGHT VENTRICLE: Mild dilatation. Mildly decreased right ventricular systolic function. TRICUSPID VALVE: Normal mobility and thickness. No stenosis with mild regurgitation. Doppler studies reveal mildly (35-45) elevated right sided pressures. RVSP 36 mmHg MITRAL VALVE: Moderately thickened with normal mobility. No evidenceof mitral valve stenosis. There is no mitral annular calcification. Mildmitral regurgitation. AORTIC VALVE: Normal trileaflet appearance. Mildly calcified aorticvalve. Normal leaflet mobility. No evidence of aortic valve stenosis. Mild to moderate aortic regurgitation. AORTIC ROOT: Normal diameter and appearance. PULMONIC VALVE: Normal thickness and mobility. No stenosis. Trivial regurgitation. PERICARDIUM: Trivial pericardial effusion. IVC: Collapses with inspirations. PLEURA: CONCLUSION: 1. Moderate concentric left ventricular hypertrophy with normal left ventricular systolic function. Estimated LVEF is 55%. 2. The right ventricle is mildly dilated with mildly reduced systolic function. 3. Mild diastolic dysfunction. 4. Moderate biatrial dilatation. 5. Mild to moderate aortic regurgitation. 6. Mild mitral and tricuspid regurgitation. 7. Mildly elevated right-sided pressures. 8. Color-flow Doppler indicates interatrial septal communication with [id number] shunting suggestive of possible small atrial septal defect. Adult Echocardiography Procedure Report Left Ventricle LVEDD (3.7 - 5.6 cm): 4.46 cm LVESD (2.2 - 4.0 cm): 2.92 cm LVIVS thickness (0.6 - 1.2 cm): 1.45 cm LVPW thickness (0.5 - 1.0 cm): 1.25 cm e': 0.06 m/s E - e': 12.91 LVOT Max Gradient: 2.15 mm[Hg] LVOT Area (cm2): 0.73 m/s Peak Velocity (LVOT): 0.73 m/s Mean Velocity (LVOT): 0.50 m/s LVOT Diameter 2.40 cm Left Atrium LA Volume Index (2D A2C): 53.65 ml/m2 Left Atrium Systolic Dimension: 4.90 cm Mitral Valve MV E to A Ratio: 0.72 Mitral Valve A-Wave Peak Velocity: 1.09 m/s Mitral Valve E-Wave Peak Velocity: 0.79 m/s Right Ventricle Aorta AO Root Diam: 2.91 cm Ascending Ao Diam: 2.75 cm Aortic Valve AoV Area (Peak Aakash): 2.42 cm2, 2.42 cm2 AoV Area (VTI): 2.65 cm2, 2.65 cm2 Peak Velocity(Antegrade Flow): 1.37 m/s Peak Gradient(Antegrade Flow): 7.46 mm[Hg] Mean Velocity(Antegrade Flow): 0.86 m/s Mean Gradient(Antegrade Flow): 3.49 mm[Hg] Velocity Time Integral: 33.44 cm Tricuspid Valve Peak Velocity (Regurgitant Flow): 2.60 m/s, 2.90 m/s, 2.63 m/s Pulmonic Valve Mean Gradient: 1.50 mm[Hg] Mean Velocity: 0.59 m/s Peak Velocity: 0.74 m/s, 0.80 m/s Peak Gradient: 2.20 mm[Hg], 2.55 mm[Hg] Right Atrium Right Atrium Systolic Pressure: 49.15 ml, 49.15 ml Dictated by: Sachin Aguilera M.D. on 08/18/2023 at 19:42 Approved by: Sachin Aguilera M.D. on 08/18/2023 at 19:51 Dictated By: SACHIN AGUILERA Signed By:08/18/231951 DD/ 50 TD/TT: Animal Shelter Clerk: us Generic External Data Provider [facility] Final Result documented in this encounter Visit Diagnoses Not on filedocumented in this encounter Care Teams Early Childhood Services Coordinator Relationship Specialty Start Date End Date Jack Vogt MD [address] [place] [address] PCP - General Internal Medicine 01/24/23 documented as of this encounter
--- OUTSIDE RECORDS SUMMARY | 2025-03-12 16:10 | XMS_ITS | Encounter Summary ---
Author Organization [facility] Address [address] [facility] [place] [address] Care Team Providers Care Resistor Winder Name Role Phone Jack Vogt MD Primary Care Provider [phone] Encounter Details Date Type Department Care Team ([facility] Contact Info) Description 09/19/2023 Abstract [facility] FM [address] [facility] [address] [place] [id number] Jack Vogt MD [address] [facility] [address] [place] [address] Social History Tobacco Use Types Packs/Day Years [...] Upcoming Encounters Date Type Department Care Team ([facility] Contact Info) Description 03/17/2025 2:30 PM EDT Ancillary Procedure [facility] ULTRASOUND [address] [place] [address] 03/17/2025 3:00 PM EDT Ancillary Procedure [facility] DXA [address] [place] [address] documented as of this encounter Visit Diagnoses Not on filedocumented in this encounter Care Teams Resistor Winder Relationship Specialty Start Date End Date Jack Vogt MD [address] [facility] [address] [place] [address] PCP - General Internal Medicine 01/24/23 documented as of this encounter
--- OUTSIDE RECORDS SUMMARY | 2025-03-12 16:10 | XMS_ITS | Encounter Summary ---
Author Organization [facility] Address [address] [facility] [place] [address] Care Team Providers Care County Agricultural Agent Name Role Phone Jack Vogt MD Primary Care Provider [phone] Encounter Details Date Type Department Care Team ([facility] Contact Info) Description 12/14/2023 Abstract [facility] FM [address] [facility] [address] [place] [id number] Jack Vogt MD [address] [facility] [address] [place] [address] Social History Tobacco Use Types Packs/Day Years Used Date Smoking Tobacco: Never Smokeless Tobacco: Never Alcohol Use Standard Drinks/Week Comments Not Asked 0 (1 standard drink = 0.6 oz pur e alcohol) caffeine yes type:coffee PHQ-2 Answer Date Recorded Patient Health Questionnaire-2 Score 0 12/13/2023 Comments Unknown Sex and Gender Information Value Date Recorded Sex Assigned at Not on file Legal Sex Female 6:57 PM EDT Gender Identity Not on file Sexual Orientation Not on file documented as of this encounter Plan of Treatment Upcoming Encounters Date Type Department Care Team ([facility] Contact Info) Description 03/17/2025 2:30 PM EDT Ancillary Procedure [facility] ULTRASOUND [address] [place] [address] 03/17/2025 3:00 PM EDT Ancillary Procedure [facility] DXA [address] [place] [address] documented as of this encounter Visit Diagnoses Not on filedocumented in this encounter Care Teams County Agricultural Agent Relationship Specialty Start Date End Date Jack Vogt MD [address] [facility] [address] [place] [address] PCP - General Internal Medicine 01/24/23 documented as of this encounter
--- OUTSIDE RECORDS SUMMARY | 2025-03-12 16:10 | XMS_ITS | Clinical Summary ---
Author Organization [facility] Address [address] [place] [address] Care Team Providers Care Community Service Coordinator Name Role Phone Jack Vogt MD Primary Care Provider [phone] Allergies Active Allergy Reactions Criticality Noted Date Comments Atorvastatin 05/09/2023 Other Reaction(s): Myalgias Iodine 05/09/2023 Other Reaction(s): Unknown Lovastatin 05/09/2023 Other Reaction(s): Myalgias Nickel Dermatitis Medium 06/04/2018 skin irritation and itching with jewelry worn Other reaction(s): Dermatitis skin irritation and itching with jewelry worn Other 12/12/2024 Other Reaction(s): myalgias (muscle pain) Pneumococcal Vac Polyvalent 05/09/2023 Other Reaction(s): Swelling, Redness Pravastatin 05/09/2023 Other Reaction(s): Myalgias Shellfish Allergy Anaphylaxis High 06/04/2018 Simvastatin 05/09/2023 Other Reaction(s): Myalgias Statins Unknown 12/12/2024 Other Reaction(s): Other (See Comments) Varenicline 05/09/2023 Other Reaction(s): Vomiting Medications meloxicam (Mobic) 15 MG tablet Take 15 mg by mouth Daily 4 Active hydrALAZINE (Apresoline) 100 MG tabletIndications: Benign essential hypertension Take 1 tablet (100 mg) by mouth in the morning and 1 tablet (100 mg) in the evening and 1 tablet (100 mg) before bedtime. 90 tablet 11 4 Active nitroglycerin (Nitrostat) 0.4 MG SL tabletIndications: Atherosclerosis of [place] coronary artery of [place] heart with stable angina pectoris Place 1 tablet (0.4 mg) under the tongue every 5 (five) minutes if needed for chest pain 90 tablet 12 4 03/20/20 25 Active tiZANidine (Zanaflex) 4 MG tabletIndications: Radiculopathy of lumbar region TAKE 1 TABLET BY MOUTH TWICE A DAY NEEDED 180 tablet 3 4 Active pantoprazole (ProtoNix) 40 MG EC tabletIndications: Gastroesophageal reflux disease, unspecified whether esophagitis present TAKE 1 TABLET BY MOUTH EVERY DAY 90 tablet 3 4 Active zolpidem (Ambien) 10 MG tabletIndications: Insomnia due to medical condition TAKE 1 TABLET BY MOUTH AT BEDTIME NEEDED FOR SLEEP 30 tablet 5 5 Active isosorbide mononitrate ER (Imdur) 60 MG 24 hr tabletIndications: Atherosclerosis of [place] coronary artery of [place] heart without angina pectoris TAKE 1 TABLET BY MOUTH EVERY DAY FOR 90 DAYS 90 tablet 2 5 Active fenofibrate (Tricor) 145 MG tabletIndications: Mixed hyperlipidemia TAKE 1 TABLET BY MOUTH EVERY DAY 90 tablet 4 5 Active ezetimibe (Zetia) 10 MG tabletIndications: Stage 3b chronic kidney disease (CMS-HCC) TAKE 1 TABLET BY MOUTH EVERY DAY 90 tablet 3 5 Active valsartan (Diovan) 320 MG tabletIndications: Benign essential hypertension TAKE 1 TABLET BY MOUTH EVERY DAY 90 tablet 4 5 Active DULoxetine (Cymbalta) [address] capsuleIndications :Anxiety Take 1 capsule (60 mg) by mouth Daily 90 capsule 5 Active DULoxetine (Cymbalta) [address] capsuleIndications :Depressive disorder Take 1 capsule (30 mg) by mouth Daily Take with 60 mg capsule 90 capsule 4 5 Active apixaban (Eliquis) 2.5 MG tabletIndications: Personal history of other venous thrombosis and embolism Take 1 tablet (2.5 mg) by mouth in the morning and 1 tablet (2.5 mg) before bedtime. 200 tablet 3 5 Active buPROPion (Wellbutrin) 75 MG tabletIndications: Depressive disorder Take 1 tablet (75 mg) by mouth in the morning and 1 tablet (75 mg) before bedtime. 60 tablet 5 04/26/20 25 Active aspirin 81 MG chewable tablet take 1 by Oral route every day Oral 02/26/20 25 Discontin ued(Other ) carvedilol (Coreg) 25 MG tabletIndications: Benign essential hypertension TAKE 1 TABLET BY MOUTH IN THE MORNING AND 1 TABLET IN THE EVENING. TAKE WITH MEALS. 180 tablet 3 5 02/26/20 25 Discontin ued(Other ) Active Problems Problem Noted Date Diagnosed Date Stage 3b chronic kidney disease 10/04/2023 Localized edema 10/04/2023 Kidney lesion 05/10/2023 Pulmonary embolism with infarction 05/05/2023 Atherosclerosis of [place] co ronary artery of [place] heart with stable angina pectoris 05/05/2023 GERD (gastroesophageal reflux disease) Depressive disorder 05/05/2023 Benign essential hypertension 05/05/2023 Carotid artery occlusion 05/05/2023 Mixed hyperlipidemia 05/05/2023 Primary osteoarthritis of both knees 05/05/2023 Fibromyalgia 05/05/2023 Primary generalized hypertrophic osteoarthrosis 05/05/2023 Fibrocystic breast changes 05/05/2023 Stricture of artery 05/05/2023 PAD (peripheral artery disease) 05/05/2023 Tobacco dependence 05/05/2023 Arteriosclerosis obliterans 05/05/2023 Renal artery stenosis 05/05/2023 Daytime somnolence 05/05/2023 Spinal stenosis, lumbar region with neurogenic c laudication 05/05/2023 Radiculopathy of lumbar region 05/05/2023 Degenerative lumbar spinal stenosis 05/05/2023 Spondylolisthesis of lumbar region 05/05/2023 Spondylosis of lumbar spine 05/05/2023 Left foot drop 05/05/2023 Venous insufficiency (chronic) (peripheral) 04/18 Peripheral arteriosclerosis 05/05/2023 Obesity (BMI 30.0-34.9) 05/05/2023 Non-intractable vomiting with nausea 05/05/2023 Generalized abdominal pain 05/05/2023 Insomnia due to medical condition 05/05/2023 Aortic dissection, abdominal 05/05/2023 Decreased estrogen level 05/05/2023 Age-related osteoporosis wit hout current pathological fracture 05/05/2023 Proteinuria, unspecified 05/05/2023 Thyroid nodule 05/05/2023 Sinus arrhythmia 05/05/2023 Myalgia 05/05/2023 Irritable bowel syndrome 05/05/2023 Anemia due to chronic blood loss 05/05/2023 Allergy to seafood 05/05/2023 Statin intolerance 05/05/2023 Postsurgical percutaneous tr ansluminal coronary angioplasty status 05/05/2023 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 01/04/2023 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 05/04/2022 Overview (05/10/2023): Last Assessment & Plan: stable Coronary stent patent 05/04/2022 Pulmonary embolus 05/04/2022 History of pulmonary embolism 05/17/2021 History of thromboembolism of vein 03/31/2021 Sinusitis 04/30/2020 History of coronary artery bypass surgery 2019 History of coronary artery stent placement 01/08 Allergy to statin medication 10/07/2019 Current nicotine use 02/27/2019 Lumbosacral spondylosis without myelopathy 10/12 Cardiovascular stress test abnormal 05/23/2018 Chest pain 05/23/2018 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 Neurogenic claudication 03/08/2018 Resolved Problems Problem Noted Date Diagnosed Date Resolved Date Type 2 diabetes mellitus wit h other diabetic kidney complication 05/05/2023 03/20/2024 Diabetic renal disease 10/24/201903/20 Encounters Date Type Department Care Team Description 02/26/2025 Abstract [facility] [address] [facility] [address] [place] [address] Jack Vogt MD 02/25/2025 11:30 AM EDT Office Visit [facility] [address] [facility] [address] [place] [address] Renetta Burton, SEALS ENGRAVER Thyroid nodule (Primary Dx); Type 2 diabetes mellitus with diabetic chronic kidney disease (HCC); Chronic kidney disease, stage 4 (severe) (HCC); Hair loss; Other fatigue; Weight loss; Depressive disorder ; Decreased estrogen level 02/25/2025 [email or web address] flowsheet [facility] [address] [place] [address] Renetta Burton NP 02/25/2025 Travel 01/27/2025 Refill [facility] [address] [place] [address] Jack Vogt MD Personal history of other venous thrombosis and embolism 01/02/2025 9:30 AM EDT Office Visit [facility] [address] [place] [address] Jack Vogt MD Stage 3b chronic kidney disease ([facility]-HCC) (Primary Dx); Pulmonary fibrosis, unspecified (HCC); Localized edema; Anxiety; Depressive disorder 01/02/2025 Bamboo flowsheet [facility] [address] [place] [address] Jack Vogt MD 01/02/2025 Travel 12/27/2024 Refill [facility] [address] [place] [address] Wanda Vásquez PA Anxiety; Depressive disorder 12/27/2024 Refill [facility] [address] [place] [address] Jack Vogt MD Personal history of other venous thrombosis and embolism; Stage 3b chronic kidney disease ([facility]-HCC); Benign essential hypertension 12/12/2024 11:30 AM EDT Office Visit [facility] [address] [place] [address] Jack Vogt MD Routine general medical examination at health care facility (Primary Dx); ACP (advance care planning); Spinal stenosis, lumbar region with neurogenic claudication; Stage 3b chronic kidney disease ([facility]-HCC); Pulmonary fibrosis, unspecified (HCC); Type 2 diabetes mellitus with diabetic peripheral angiopathy without gangrene (HCC); Localized edema 12/12/2024 Abstract [facility] [address] [place] [address] Jack Vogt MD 12/12/2024 Bamboo flowsheet [facility] [address] [place] [address] Jack Vogt MD 12/12/2024 Travel from Last 3 Months Immunizations Immunization Administration Dates Next Due Influenza, High-dose Seasona l, Quadrivalent, Preservative Free 06/24/2021 Influenza, Seasonal, Quadrivalent, Adjuvanted ,07/08/2020 Moderna Bivalent Booster Vaccination 07/04/2022 Pneumococcal Polysaccharide PPSV23 04/01/2015 Smallpox Monkeypox, Live Attenuated, Preservativ e Free 07/08/2020 Family History Medical History Relation Name Comments Lymphoma Brother Heart disease Father Stroke Father Heart disease Mother Ovarian cancer Sister Diabetes Son Relation Name Status Comments Brother Father Mother Sister Son Alive Social History Tobacco Use Types Packs/Day Years Used Date Smoking Tobacco: Never Smokeless Tobacco: Never Tobacco Cessation:Counseling Given: Yes Alcohol Use Standard Drinks/Week Comments Defer 0 (1 standard drink = 0.6 oz pur e alcohol) caffeine yes type:coffee PHQ-2 Answer Date Recorded Patient Health Questionnaire-2 Score 4 02/25/2025 Comments Unknown Sex and Gender Information Value Date Recorded Sex Assigned at Not on file Legal Sex Female 6:57 PM EDT Gender Identity Not on file Sexual Orientation Not on file Last Filed Vital Signs Vital Sign Reading Time Taken Comments Blood Pressure 138/64 02/25/2025 11:40 AM EDT Pulse 74 02/25/2025 11:40 AM EDT Temperature - - Respiratory Rate 16 02/25/2025 11:40 AM EDT Oxygen Saturation 97% 02/25/2025 11:40 AM EDT Inhaled Oxygen Concentration - - Weight 66.7 kg (147 lb) 02/25/2025 11:40 AM EDT Height 157.5 cm (5' 2 ) 02/25/2025 11:40 AM EDT Body Mass Index 26.89 02/25/2025 11:40 AM EDT Plan of Treatment Upcoming Encounters Date Type Department Care Team (Late st Contact Info) Description 03/17/2025 2:30 PM EDT Ancillary Procedure [facility] [address] [place] [address] 03/17/2025 3:00 PM EDT Ancillary Procedure [facility] [address] [place] [address] Health Maintenance Due Date Last Done Comments CT Colonography 1949 FIT-DNA 1949 FIT 1950 FOBT 1950 Sigmoidoscopy 1950 Diabetes: Retinopathy Screening 11/18/2024 3, 11/17/2022 Diabetes: Urine Protein Screening 12/12/2024 12/13/2023, 10/09/2019, 09/28/2018 Diabetes: Hemoglobin A1C 03/14/2025 025, 03/20/2024, 12/13/2023, Additional history exists Influenza Vaccine (Season Ended) 2025 07/04/2022, 06/24/2021, 07/08/2020 Colonoscopy 03/17/2031 03/17/2021 Colorectal Cancer Screening 03/17/2031 Pneumococcal Vaccine: 65+ Years Discontinued 5 Mammogram Discontinued 02/05/2024, 01/17, 02/03/2023, Additional history exists Goals Goal Patient Goal Type Associated Problems Recent Progress Patient-Stated? Author Help patient manage antidepressant medication Care Plan Patient on antidepressant monitoring plan Renetta May NP Procedures Procedure Name Priority Date/Time Associated Diagnosis Comments URINARY TRACT INFECTION (HTRX) Routine 02/25/2025 1:24 PM EDT Chronic kidney disease, stage 4 (severe) (HCC) Other fatigue POCT URINALYSIS DIPSTICK Routine 02/25/2025 1:05 PM EDT Chronic kidney disease, stage 4 (severe) (HCC) Weight loss COMPREHENSIVE METABOLIC PANEL Routine 01/01/2025 9:29 AM EDT Stage 3b chronic kidney disease (CMS-HCC) LIPID PANEL Routine 01/01/2025 9:29 AM EDT Type 2 diabetes mellitus with diabetic peripheral angiopathy without gangrene (HCC) T3, FREE Routine 01/01/2025 9:29 AM EDT Localized edema T4, FREE Routine 01/01/2025 9:29 AM EDT Localized edema TSH Routine 01/01/2025 9:29 AM EDT Localized edema CBC (INCLUDES DIFF/PLT) Routine 01/01/2025 9:29 AM EDT Stage 3b chronic kidney disease (CMS-HCC) POCT GLYCATED HEMOGLOBIN, TOTAL Routine 12/12/2024 12:07 PM EDT Type 2 diabetes mellitus with diabetic peripheral angiopathy without gangrene (HCC) MAMMOGRAM* Routine 02/05/2024 1:10 PM EDT MICROALBUMIN / CREATININE URINE RATIO Routine 12/13/2023 11:50 AM EDT Type 2 diabetes mellitus with stage 3b chronic kidney disease, without long-term current use of insulin (HCC) COLOR FUNDUS PHOTOGRAPHY - OU - BOTH EYES Routine 11/18/2022 12:00 PM EST COLONOSCOPY Routine 03/17/2021 12:00 PM EDT from Last 3 Months or Most Recently Relevant to Health Maintenance Results * URINARY TRACT INFECTION (HTRX) (02/25/2025 1:24 PM EDT) Pathologist [facility] ACINETOBACTER BAUMANII 0.000 19.961 - 24.689 ppm 02/26/2025 7:15 AM EDT [facility] ACINETOBACTER BAUMANII Not Detected 19.961 - 24.689 ppm 02/26/2025 7:15 AM EDT [facility] CITROBACTER FREUNDII 0.000 23.000 - 31.881 ppm 02/26/2025 7:15 AM EDT [facility] CITROBACTER FREUNDII Not Detected 23.000 - 31.881 ppm 02/26/2025 7:15 AM EDT [facility] ENTEROBACTER AEROGENES, CLOACAE 0.000 23.000 - 31.535 ppm 02/26/2025 7:15 AM EDT [facility] ENTEROBACTER AEROGENES, CLOACAE Not Detected 23.000 - 31.535 ppm 02/26/2025 7:15 AM EDT [facility] ENTEROCOCCUS FAECALIS, FAECIUM 0.000 26.000 - 31.575 ppm 02/26/2025 7:15 AM EDT [facility] ENTEROCOCCUS FAECALIS, FAECIUM Not Detected 26.000 - 31.575 ppm 02/26/2025 7:15 AM EDT [facility] ESCHERICHIA COLI 0.000 23.000 - 28.500 ppm 02/26/2025 7:15 AM EDT [facility] ESCHERICHIA COLI Not Detected 23.000 - 28.500 ppm 02/26/2025 7:15 AM EDT [facility] KLEBSIELLA PNEUMONIAE, OXYTOCA 0.000 23.000 - 30.500 ppm 02/26/2025 7:15 AM EDT [facility] KLEBSIELLA PNEUMONIAE, OXYTOCA Not Detected 23.000 - 30.500 ppm 02/26/2025 7:15 AM EDT [facility] MORGANELLA MORGANII 0.000 19.961 - 24.689 ppm 02/26/2025 7:15 AM EDT [facility] MORGANELLA MORGANII Not Detected 19.961 - 24.689 ppm 02/26/2025 7:15 AM EDT [facility] PROTEUS MIRABILIS, VULGARIS 0.000 23.000 - 28.500 ppm 02/26/2025 7:15 AM EDT [facility] PROTEUS MIRABILIS, VULGARIS Not Detected 23.000 - 28.500 ppm 02/26/2025 7:15 AM EDT [facility] PSEUDOMONAS AERUGINOSA 0.000 23.000 - 28.500 ppm 02/26/2025 7:15 AM EDT [facility] PSEUDOMONAS AERUGINOSA Not Detected 23.000 - 28.500 ppm 02/26/2025 7:15 AM EDT [facility] STAPHYLOCOCCUS AUREUS 0.000 26.000 - 30.902 ppm 02/26/2025 7:15 AM EDT [facility] STAPHYLOCOCCUS AUREUS Not Detected 26.000 - 30.902 ppm 02/26/2025 7:15 AM EDT [facility] STREPTOCOCCUS AGALACTIAE (GROUP B STREP) 0.000 26.000 - 32.222 ppm 02/26/2025 7:15 AM EDT [facility] STREPTOCOCCUS AGALACTIAE (GROUP B STREP) Not Detected 26.000 - 32.222 ppm 02/26/2025 7:15 AM EDT [facility] AMEE ALBICANS, PARAPSILOSIS, TROPICALIS 0.000 19.961 - 30.770 ppm 02/26/2025 7:15 AM EDT [facility] AMEE ALBICANS, PARAPSILOSIS, TROPICALIS Not Detected 19.961 - 30.770 ppm 02/26/2025 7:15 AM EDT [facility] AMEE GLABRATA 0.000 23.000 - 32.138 ppm 02/26/2025 7:15 AM EDT [facility] AMEE GLABRATA Not Detected 23.000 - 32.138 ppm 02/26/2025 7:15 AM EDT [facility] AMEE KRUSEI 0.000 23.000 - 32.271 ppm 02/26/2025 7:15 AM EDT [facility] AMEE KRUSEI Not Detected 23.000 - 32.271 ppm 02/26/2025 7:15 AM EDT [facility] SERRATIA MARCESCENS 0.000 23.000 - 31.204 ppm 02/26/2025 7:15 AM EDT [facility] SERRATIA MARCESCENS Not Detected 23.000 - 31.204 ppm 02/26/2025 7:15 AM EDT [facility] STREPTOCOCCUS PYOGENES (GROUP A STREP) 0.000 19.961 - 24.689 ppm 02/26/2025 7:15 AM EDT [facility] STREPTOCOCCUS PYOGENES (GROUP A STREP) Not Detected 19.961 - 24.689 ppm 02/26/2025 7:15 AM EDT [facility] STAPHYLOCOCCUS EPIDERMIDIS, HAEMOLYTICUS, LUGDUNENSIS, SAPROPHYTICUS (URINA 0.000 19.961 - 24.689 ppm 02/26/2025 7:15 AM EDT [facility] STAPHYLOCOCCUS EPIDERMIDIS, HAEMOLYTICUS, LUGDUNENSIS, SAPROPHYTICUS (URINA Not Detected 19.961 - 24.689 ppm 02/26/2025 7:15 AM EDT [facility] STAPHYLOCOCCUS EPIDERMIDIS, HAEMOLYTICUS, LUGDUNENSIS, SAPROPHYTICUS (URINA 0.000 19.961 - 24.689 ppm 02/26/2025 7:15 AM EDT [facility] STAPHYLOCOCCUS EPIDERMIDIS, HAEMOLYTICUS, LUGDUNENSIS, SAPROPHYTICUS (URINA Not Detected 19.961 - 24.689 ppm 02/26/2025 7:15 AM EDT [facility] Urine 02/25/2025 1:24 PM EDT 02/26/2025 2:08 AM EDT Renetta Burton SEALS ENGRAVER LAB BLOOD ORDERABLES Final R esult [facility] [address] [place] [address] * (ABNORMAL) POCT Urinalysis dipstick (02/25/2025 1:05 PM EDT) Color, UA Yellow Clarity, UA Cloudy Glucose, UA Negative Negative - 1999(110) ++++ mg/dL Bilirubin, UA Negative Negative - 4(70) +++ mg/dL Ketones, UA Positive Negative - 160(16) ++++ mg/dL Spec Grav, UA 1.015 1 - 1.03 Blood, UA Negative Negative - 50 Danish/mcL pH, UA 5.0 5 - 9 Protein, UA 3+ Negative - 1999(20) ++++ mg/dL Urobilinogen, UA 0.2 0.2 - 12 mg/dL Leukocytes, UA Negative Negative - 500+++ Siria/mcL Nitrite, UA Negative Negative - Positive Urine 02/25/2025 1:05 PM EDT us Renetta Burton NP POINT OF CARE TEST ENTER/ARIA T ORDERABLES Final Result * CBC and differential (01/01/2025 9:29 AM EDT) WHITE BLOOD CELL COUNT 5.2 3.8 - 10.8 Thousand/u L [facility] RED BLOOD CELL COUNT 4.15 3.80 - 5.10 Million/uL [facility] HEMOGLOBIN 11.9 11.7 - 15.5 g/dL [facility] HEMATOCRIT 36.8 35.0 - 45.0 % [facility] MCV 88.7 80.0 - 100.0 fL [facility] MCH 28.7 27.0 - 33.0 pg [facility] MCHC 32.3 32.0 - 36.0 g/dL [facility] Comment: For adults, a slight decrease in the calculated MCHC value (in the range of 30 to 32 g/dL) is most likely not clinically significant; however, it should be interpreted with caution in correlation with other red cell parameters and the patient's clinical condition. RDW 14.8 11.0 - 15.0 % [facility] PLATELET COUNT 205 140 - 400 Thousand/u L [facility] MPV 10.6 7.5 - 12.5 fL [facility] ABSOLUTE NEUTROPHILS 2,662 1,500 - 7,800 cells/uL [facility] ABSOLUTE LYMPHOCYTES 1,737 850 - 3,900 cells/uL [facility] ABSOLUTE MONOCYTES 510 200 - 950 cells/uL [facility] ABSOLUTE EOSINOPHILS 250 15 - 500 cells/uL [facility] ABSOLUTE BASOPHILS 42 0 - 200 cells/uL [facility] NEUTROPHILS 51.2 % [facility] LYMPHOCYTES 33.4 % [facility] MONOCYTES 9.8 % [facility] EOSINOPHILS 4.8 % [facility] BASOPHILS 0.8 % [facility] Blood Venous blood specimen / Unknown 01/01/2025 9:29 AM EDT 01/01/2025 9:29 AM EDT Narrative [facility] - 01/02/2025 8:42 AM EDT FASTING:YES FASTING: YES Resulting Agency Comment Performing Organization Information Site ID: QPT Name: [employer] [facility] Address: [address] [place] [address], [address] [place] [id number] Director: Figueroa Jacques MD Jack Vogt MD LAB BLOOD ORDERABLES Final Res ult [facility] * T3, free (01/01/2025 9:29 AM EDT) T3, FREE 2.7 2.3 - 4.2 pg/mL [facility] Blood Venous blood specimen / Unknown 01/01/2025 9:29 AM EDT 01/01/2025 9:29 AM EDT Narrative [facility] - 01/02/2025 8:42 AM EDT FASTING:YES FASTING: YES Resulting Agency Comment Performing Organization Information Site ID: QPT Name: [facility] Address: [address] [place] [address], [address] [place], [place] [id number] Director: Figueroa Jacques MD us Jack Vogt MD LAB BLOOD ORDERABLES Final Res ult Performing Organization Address [facility] de Phone Number [facility] * TSH (01/01/2025 9:29 AM EDT) TSH 3.82 0.40 - 4.50 mIU/L [facility] Blood Venous blood specimen / Unknown 01/01/2025 9:29 AM EDT 01/01/2025 9:29 AM EDT Narrative [facility] - 01/02/2025 8:42 AM EDT FASTING:YES FASTING: YES Resulting Agency Comment Performing Organization Information Site ID: QPT Name: [employer] [facility] Address: [address] [place] [address], [address] [place] [address] Director: Figueroa Jacques MD us Jack Vogt MD LAB BLOOD ORDERABLES Final Res ult Performing Organization Address [facility] Co de Phone Number [facility] * T4, free (01/01/2025 9:29 AM EDT) T4, FREE 1.2 0.8 - 1.8 ng/dL [facility] Blood Venous blood specimen / Unknown 01/01/2025 9:29 AM EDT 01/01/2025 9:29 AM EDT Narrative [facility] - 01/02/2025 8:42 AM EDT FASTING:YES FASTING: YES Resulting Agency Comment Performing Organization Information Site ID: QPT Name: [employer] [facility] Address: [address] [place] [address] Director: Figueroa Jacques MD Jack Vogt MD LAB BLOOD ORDERABLES Final Res ult Performing Organization Address [facility] Co de Phone Number [facility] * (ABNORMAL) Lipid panel (01/01/2025 9:29 AM EDT) CHOLESTEROL, TOTAL 138 <200 mg/dL [facility] HDL CHOLESTEROL 37(L) > OR = 50 mg/dL [facility] TRIGLYCERIDES 153(H) <150 mg/dL [facility] LDL CHOLESTEROL 76 mg/dL (calc) [facility] Comment: Reference range: <100 Desirable range <100 mg/dL for primary prevention; <70 mg/dL for patients with CHD or diabetic patients with > or = 2 CHD risk factors. LDL-C is now calculated using the Jose calculation, which is a validated novel method providing better accuracy than the Friedewald equation in the estimation of LDL-C. Andres SS et al. NICOLE. 2013;310(19): 7844-6123 (http://education.ISpeak.Zondle/faq/XWG617) CHOL/HDLC RATIO 3.7 <5.0 (calc) [facility] NON HDL CHOLESTEROL 101 <130 mg/dL (calc) [facility] Comment: For patients with diabetes plus 1 major ASCVD risk factor, treating to a non-HDL-C goal of <100 mg/dL (LDL-C of <70 mg/dL) is considered a therapeutic option. Blood Venous blood specimen / Unknown 01/01/2025 9:29 AM EDT 01/01/2025 9:29 AM EDT Narrative [facility] - 01/02/2025 8:42 AM EDT FASTING:YES FASTING: YES Resulting Agency Comment Performing Organization Information Site ID: QPT Name: [employer] [facility] Address: [address] [facility] [place] [address] Director: Figueroa Jacques MD us Jack Vogt MD LAB BLOOD ORDERABLES Final Res ult Performing Organization Address [facility]/ZIP Co de Phone Number [facility] * (ABNORMAL) Comprehensive metabolic panel (01/01/2025 9:29 AM EDT) Glucose 103(H) 65 - 99 mg/dL [facility] Comment: Fasting reference interval For someone without known diabetes, a glucose value between 100 and 125 mg/dL is consistent with prediabetes and should be confirmed with a follow-up test. BUN 27(H) 7 - 25 mg/dL [facility] Creatinine 2.01(H) 0.60 - 1.00 mg/dL [facility] EGFR 25(L) > OR = 60 mL/min/1.7 3m2 [facility] BUN/CREATININE RATIO 13 6 - 22 (calc) [facility] Sodium 141 135 - 146 mmol/L [facility] Potassium, Bld 4.4 3.5 - 5.3 mmol/L [facility] Chloride 108 98 - 110 mmol/L [facility] Carbon Dioxide 24 20 - 32 mmol/L [facility] Calcium 9.2 8.6 - 10.4 mg/dL [facility] PROTEIN, TOTAL 6.5 6.1 - 8.1 g/dL [facility] ALBUMIN 3.9 3.6 - 5.1 g/dL [facility] GLOBULIN 2.6 1.9 - 3.7 g/dL (calc) [facility] ALBUMIN/GLOBULIN RATIO 1.5 1.0 - 2.5 (calc) [facility] BILIRUBIN, TOTAL 0.6 0.2 - 1.2 mg/dL [facility] ALKALINE PHOSPHATASE 45 37 - 153 U/L [facility] AST 14 10 - 35 U/L [facility] ALT 4(L) 6 - 29 U/L [facility] Blood Venous blood specimen / Unknown 01/01/2025 9:29 AM EDT 01/01/2025 9:29 AM EDT Narrative [facility] - 01/02/2025 8:42 AM EDT FASTING:YES FASTING: YES Resulting Agency Comment Performing Organization Information Site ID: QPT Name: [employer] [facility] Address: [address] [place] [address], [address] [place] [phone] Director: Figueroa Jacques MD us Jack Vogt MD LAB BLOOD ORDERABLES Final Res ult [facility] * POCT Glycated hemoglobin, total (12/12/2024 12:07 PM EDT) Hemoglobin A1C 5.0 Blood 12/12/2024 12:0 7 PM EDT Jack Vogt MD POINT OF CARE TEST ENTER/EDIT ORDERABLES Final Result * MAMMOGRAM* (02/05/2024 1:10 PM EDT) Anatomical Region Laterality Modality Radiographic Ruma ging Noms Provider Unallocated MD IMG XR PROCEDURES F inal Result * (ABNORMAL) Microalbumin / creatinine urine ratio (12/13/2023 11:50 AM EDT) CREATININE, RANDOM URINE 40 20 - 275 mg/dL [facility] ALBUMIN, URINE 36.2 See Note: mg/dL [facility] Comment: Reference Range: Reference Range Not established Results verified by repeat analysis on dilution. ALBUMIN/CREATININE RATIO, RANDOM URINE 905(H) <30 mg/g creat [facility] Comment: The ADA defines abnormalities in albumin excretion as follows: Albuminuria Category Result (mg/g creatinine) Normal to Mildly increased <30 Moderately increased 30-299 Severely increased > OR = 300 The ADA recommends that at least two of three specimens collected within a 3-6 month period be abnormal before considering a patient to be within a diagnostic category. Urine Urine specimen obtained by clean catch procedure / Unknown 12/13/2023 11:50 AM EDT 12/13/2023 11:50 AM EDT Narrative [facility] - 12/14/2023 1:50 PM EDT FASTING:NO FASTING: NO Resulting Agency Comment Performing Organization Information Site ID: QPT Name: [employer] [facility] Address: [address] [place] [address], [address] [place] [phone] Director: Figueroa Jacques MD Jack Vogt MD LAB URINE ORDERABLES Final Res ult [facility] * Color Fundus Photography - OU - Both Eyes (11/18/2022 12:00 PM EST) Anatomical Region Laterality Modality Head Fundus Photograp hy 11/18/2022 12:0 0 PM EST Narrative 11/18/2022 12:00 PM EST PERFORMED AT [facility] LOCATION:[id number] [facility] Procedure Note CONVERSION, GENERIC - 02/02/2023 PERFORMED AT [facility] LOCATION:[id number] ndr Jack Vogt MD OPHTH PHOTOGRAPHY Final Result * Colonoscopy (03/17/2021 12:00 PM EDT) Anatomical Region Laterality Modality Endoscopy 03/17/2021 12:0 0 PM EDT Narrative 03/17/2021 12:00 PM EDT PERFORMED AT [facility] LOCATION:[id number] polyp- Procedure Note CONVERSION, GENERIC - 02/01/2023 PERFORMED AT [facility] LOCATION:[id number] polyp- Jack Vogt MD ENDOSCOPY PROCEDURE ORDERABLES Final Result from Last 3 Months or Most Recently Relevant to Health Maintenance Additional Health Concerns Active Problems Noted Date Diagnosed Date Patient on antidepressant monitoring plan 2024 Insurance [employer] MED[employer]ARE Care Teams Community Service Coordinator Relationship Specialty Start Date End Date Jack Vogt MD [address] [facility] [address] [place] [address] PCP - General Internal Medicine 01/24/23
--- OUTSIDE RECORDS SUMMARY | 2025-03-12 16:10 | XMS_ITS | Encounter Summary ---
Author Organization [facility] Address [address] [place] [address] Care Team Providers Care Astrophysics Professor Name Role Phone Jack Vogt MD Primary Care Provider [phone] Encounter Details Date Type Department Care Team (Late Contact Info) Description 09/20/2024 Clinisync Result Encounter [facility] External Department Unsolicited [...] ULTRASOUND [address] [place] [address] 03/17/2025 3:00 PM EDT Ancillary Procedure [facility] DXA [address] [place] [address] documented as of this encounter Procedures Procedure Name Priority Date/Time Associated Diagnosis Comments MR ABDOMEN W AND WO CONTRAST 09/20/2024 5:13 PM EST documented in this encounter Results * MR abdomen w and wo contrast (09/20/2024 5:13 PM EST) Anatomical Region Laterality Modality Abdomen Magnetic Resonan ce 09/20/2024 5:13 PM EST Narrative 09/20/2024 5:15 PM EST [address] [address] Magnetic Resonance Report Signed Patient: LUPE NGUYEN MR#: [id number] : 1950 Acct:[id number] Age/Sex: 73 / F ADM Date: 09/13/24 Loc: LAB Attending Dr: Alfredo Cardenas M.D. Ordering Physician: Alfredo Cardenas M.D. Date of Service: 09/13/24 Procedure(s): MR abdomen wo/w con Accession Number(s): [id number] cc: JACK VOGT ; Alfredo Cardenas M.D. [address] [address] Patient Name: LUPE NGUYEN MRN: [id number] date: 1950 Sex: F Assigned Patient Location: LAB Current Patient Location: LAB Accession/Order Number: [id number] Exam Date: 09/13/2024 13:35 Report Date: 09/20/2024 17:13 At the request of: ALFREDO CARDENAS Procedure: MR abdomen wo/w con EXAM: MR abdomen wo/w con 09/13/2024. COMPARISON: MRI of the abdomen with and without contrast 07/24/2023. CT of the abdomen and pelvis without contrast 03/24/2021. TECHNIQUE: Coronal T2, axial T1 in and out of phase, axial T2 with fat saturation as well as axial and coronal T1 fat-saturated images of the abdomen obtained. Sagittal T2 images were obtained. Axial and coronal T1 postcontrast images were obtained in the nephrographic phase. HISTORY: Kidney Lesion N28.9 FINDINGS: Prior median sternotomy is identified. Right hepatic lobe measures 15.7 cm superior to inferior. The spleen measures 11.4 cm superior to inferior. Gallbladder is surgically absent. 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 Incidental note of severe degenerative changes as well as mild lumbar levocurvature. Posterior dory and screw fixation is identified. Bowel pattern does not appear to be obstructive. Heart size is stable. Lung bases are clear. Pancreas appears unremarkable. Both adrenals maintain adreniform shape and are similarly hyperplastic. Similar mild global atrophic changes of both kidneys, asymmetrically greater toward the right. Intracortical image bilateral within the posterior cortex midpole level of the right kidney, axial image 14 of out of phase T1 image measures 6 mm in diameter. Midpole lesion posteromedially on the left with similar appearance measures 6 mm, image #15. These foci are increased in signal intensity on the T1 in phase images. These are unchanged compared to CT study from 03/24/2021. Hemorrhagic/proteinaceous cyst at the upper pole of the right kidney seen anterolaterally on image 12 of series 7 measures 10 mm in diameter. Small exophytic cyst inferior pole left kidney again noted measuring 9 mm. Intracortical hemorrhagic/proteinaceous cyst at the upper pole of the left kidney measures 10 mm, image 8 of series 8. These are unchanged. Right kidney has superior to inferior length of 9.1 cm as compared to left kidney at 10.9 cm. MR/MR abdomen wo/w con IMPRESSION: 1. Stable combination of simple and hemorrhagic/proteinaceous small bilateral renal cysts as described unchanged. 2. 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 3. 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 4. Prior cholecystectomy. Overall no acute intra-abdominal process. 5. Severe multilevel degenerative changes of the thoracic and lumbar spine with lumbar levoscoliosis. Posterior dory and screw fixation of the lumbar spine from L4 through S1 levels identified. Electronically authenticated by: TAWANNA WATKINS Date: 09/20/2024 17:13 Dictated By: Chirag Esquivel M.D. Signed By: 09/20/245 DD/ 12 TD/TT: Security Dispatcher: Procedure Note Radiology, Radiologist, - 09/20/2024 [facility] [place] [id number] Magnetic Resonance Report Signed Patient: LUPE NGUYEN LMR#: [id number] : 1950Acct:[id number] Age/Sex: 73 / FADM Date: 09/13/24 Loc: LAB Attending Dr: Alfredo Cardenas M.D. Ordering Physician: Alfredo Cardenas M.D. Date of Service: 09/13/24 Procedure(s): MR abdomen wo/w con Accession Number(s): [id number] cc: JACK VOGT ; Alfredo Cardenas M.D. [place] [address] Patient Name: LUPE NGUYEN MRN: [facility]:[id number] date: 1950 Sex: F Assigned Patient Location: LAB Current Patient Location: LAB Accession/Order Number: [id number] Exam Date: 09/13/2024 13:35 Report Date: 09/20/2024 17:13 At the request of: ALFREDO CARDENAS Procedure: MR abdomen wo/w con EXAM: MR abdomen wo/w con 09/13/2024. COMPARISON: MRI of the abdomen with and without contrast 07/24/2023. CT ofthe abdomen and pelvis without contrast 03/24/2021. TECHNIQUE: Coronal T2, axial T1 in and out of phase, axial T2 with fat saturation as well as axial and coronal T1 fat-saturated images of theabdomen obtained. Sagittal T2 images were obtained. Axial and coronal [id number] images were obtained in the nephrographic phase. HISTORY: Kidney Lesion N28.9 FINDINGS: Prior median sternotomy is identified. Right hepatic lobemeasures 15.7 cm superior to inferior. The spleen measures 11.4 cm superior to inferior. Gallbladder is surgically absent. Sequela of chronic infarct at the superior pole of the spleen is againnoted. Incidental note of severe degenerative changes as well as mild lumbar levocurvature. Posterior dory and screw fixation is identified. Bowelpattern does not appear to be obstructive. Heart size is stable. Lung bases are clear. Pancreas appears unremarkable. Both adrenals maintain adreniform shape andare similarly hyperplastic. Similar mild global atrophic changes of bothkidneys, asymmetrically greater toward the right. Intracortical image bilateral within the posterior cortex midpole level ofthe right kidney, axial image 14 of out of phase T1 image measures 6 mm in diameter. Midpole lesion posteromedially on the left with similarappearance measures 6 mm, image #15. These foci are increased in signal intensity onthe T1 in phase images. These are unchanged compared to CT study from03/24/2021. Hemorrhagic/proteinaceous cyst at the upper pole of the right kidney seen anterolaterally on image 12 of series 7 measures 10 mm in diameter. Small exophytic cyst inferior pole left kidney again noted measuring 9 mm. Intracortical hemorrhagic/proteinaceous cyst at the upper pole of the left kidney measures 10 mm, image 8 of series 8. These are unchanged. Right kidney has superior to inferior length of 9.1 cm as compared to left kidney at 10.9 cm. MR/MR abdomen wo/w con IMPRESSION: 1. Stable combination of simple and hemorrhagic/proteinaceous smallbilateral renal cysts as described unchanged. 2. 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 3. 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 4. Prior cholecystectomy. Overall no acute intra-abdominal process. 5. Severe multilevel degenerative changes of the thoracic and lumbar spine with lumbar levoscoliosis. Posterior dory and screw fixation of the lumbar spine from L4 through S1 levels identified. Electronically authenticated by: TAWANNA WATKINS Date: 09/20/2024 17:13 Dictated By: Chirag Esquivel M.D. Signed By:09/20/241714 DD/ 12 TD/TT: Security Dispatcher: us Generic External Data Provider IMG MRI PROCEDURE S Final Result documented in this encounter Visit Diagnoses Not on filedocumented in this encounter Care Teams Astrophysics Professor Relationship Specialty Start Date End Date Jack Vogt MD [address] [place] [address] PCP - General Internal Medicine 01/24/23 documented as of this encounter
--- OUTSIDE RECORDS SUMMARY | 2025-03-12 16:10 | XMS_ITS | Encounter Summary ---
Author Organization [facility] Address [address] [facility] [place] [address] Care Team Providers Care Photostat Operator Helper Name Role Phone Jack Vogt MD Primary Care Provider [phone] Encounter Details Date Type Department Care Team ([facility] Contact Info) Description 06/15/2023 Abstract [facility] CI FM 112 [facility] 110 [place] [phone] Jack Vogt MD 112 [facility] [address] [place] [address] Social History Tobacco Use Types Packs/Day Years [...] Upcoming Encounters Date Type Department Care Team ([facility] Contact Info) Description 03/17/2025 2:30 PM EDT Ancillary Procedure [facility] ULTRASOUND [address] [place] [address] 03/17/2025 3:00 PM EDT Ancillary Procedure [facility] DXA [address] [place] [address] documented as of this encounter Visit Diagnoses Not on filedocumented in this encounter Care Teams Photostat Operator Helper Relationship Specialty Start Date End Date Jack Vogt MD 112 [facility] [address] [place] [address] PCP - General Internal Medicine 01/24/23 documented as of this encounter
--- OUTSIDE RECORDS SUMMARY | 2025-03-12 16:10 | XMS_ITS | Encounter Summary ---
Author Organization [facility] Address [address] [facility] [place] [address] Care Team Providers Care Supervisor Vine Fruit Farming Name Role Phone Jack Vogt MD Primary Care Provider [phone] Reason for Visit * Reason Comments Med Refill Encounter Details Date Type Department Care Team (Late st Contact Info) Description 08/04/2023 Refill [facility] 112 [facility] 110 [place] [address] Wanda Vásquez PA 112 [facility] [address] [place] [address] Insomnia due to medical condition Social History Tobacco Use Types Packs/Day Years [...] on file documented as of this encounter Miscellaneous Notes * Telephone Encounter - GISSELLE Sigala - 08/07/2023 2:43 PM EST OARRS reviewed, Rx sent into patient's pharmacy. Please help pt get set up for controlled med follow up before the end of he year. documented in this encounter Plan of Treatment Upcoming Encounters Date Type Department Care Team (Late Contact Info) Description 03/17/2025 2:30 PM EDT Ancillary Procedure [facility] ULTRASOUND [address] [place] [address] 03/17/2025 3:00 PM EDT Ancillary Procedure [facility] DXA [address] [facility] [address] [place] [phone] documented as of this encounter Visit Diagnoses Diagnosis Insomnia due to medical condition Organic insomnia, unspecified documented in this encounter Care Teams Supervisor [employer] Farm[employer] Relationship Specialty Start Date End Date Jack Vogt MD [address] [place] [address] [address] [place] [address] PCP - General Internal Medicine 01/24/23 documented as of this encounter
--- OUTSIDE RECORDS SUMMARY | 2025-03-12 16:10 | XMS_ITS | Encounter Summary ---
Author Organization [facility] Address [address] [facility] [place] [address] Care Team Providers Care Punchboard Inserter Name Role Phone Jack Vogt MD Primary Care Provider [phone] Encounter Details Date Type Department Care Team ([facility] Contact Info) Description 07/25/2023 Abstract [facility] FM 112 [facility] 110 [place] [phone] Jack Vogt MD 112 [facility] 110 [place] [address] Social History Tobacco Use Types Packs/Day Years [...] Upcoming Encounters Date Type Department Care Team ([facility] Contact Info) Description 03/17/2025 2:30 PM EDT Ancillary Procedure [facility] ULTRASOUND [address] [place] [address] 03/17/2025 3:00 PM EDT Ancillary Procedure [facility] DXA [address] [place] [address] documented as of this encounter Visit Diagnoses Not on filedocumented in this encounter Care Teams Punchboard Inserter Relationship Specialty Start Date End Date Jack Vogt MD 112 [facility] [address] [place] [address] PCP - General Internal Medicine 01/24/23 documented as of this encounter
--- OUTSIDE RECORDS SUMMARY | 2025-03-12 16:10 | XMS_ITS | Encounter Summary ---
Author Organization [facility] Address [address] [facility] [place] [address] Care Team Providers Care Sock Ironer Name Role Phone Jack Vogt MD Primary Care Provider [phone] Encounter Details Date Type Department Care Team ([facility] Contact Info) Description 07/14/2023 Abstract [facility] FM 112 [facility] 110 [place] [phone] Jack Vogt MD 112 [facility] 110 [place] [address] Social History Tobacco Use Types Packs/Day Years [...] ULTRASOUND [address] [place] [address] 03/17/2025 3:00 PM EDT Ancillary Procedure [facility] DXA [address] [place] [address] documented as of this encounter Visit Diagnoses Not on filedocumented in this encounter Care Teams Sock Ironer Relationship Specialty Start Date End Date Jack Vogt MD 112 [facility] 110 [place] [address] PCP - General Internal Medicine 01/24/23 documented as of this encounter
--- OUTSIDE RECORDS SUMMARY | 2025-03-12 16:10 | XMS_ITS | Encounter Summary ---
Author Organization [facility] Address [address] [facility] [place] [address] Care Team Providers Care Cisco Engineer Name Role Phone Jack Vogt MD Primary Care Provider [phone] Encounter Details Date Type Department Care Team ([facility] Contact Info) Description 2023 Abstract [facility] 112 [facility] 110 [place] [phone] Jack Vogt MD 112 [facility] 110 [place] [address] Social History Tobacco Use Types Packs/Day Years [...] ULTRASOUND [address] [place] [address] 03/17/2025 3:00 PM EDT Ancillary Procedure [facility] DXA [address] [place] [address] documented as of this encounter Visit Diagnoses Not on filedocumented in this encounter Care Teams Cisco Engineer Relationship Specialty Start Date End Date Jack Vogt MD 112 [facility] 110 [place] [address] PCP - General Internal Medicine 01/24/23 documented as of this encounter
--- OUTSIDE RECORDS SUMMARY | 2025-03-12 16:10 | XMS_ITS | Clinical Summary ---
Author Organization [facility] Address [address] [place] [address] Care Team Providers Care Mechanical Engineering Officer Name Role Phone Jack Vogt MD Primary Care Provider [phone] Allergies Active Allergy Reactions Criticality Noted Date Comments Iodine Anaphylaxis High Hives, and anaphylactic reaction Nickel Dermatitis Medium 06/04/2018 skin irritation and itching with jewelry worn Shellfish-Derived Products Anaphylaxis High 06/04/2018 Simvastatin Other (See Comments) Medications aspirin 81 MG tablet Take 81 mg by mouth daily Active amLODIPine (NORVASC) 10 MG tablet Take 10 mg by mouth daily Active zolpidem (AMBIEN) 10 MG tablet Take 10 mg by mouth nightly.. 8 Active valsartan (DIOVAN) 320 MG tablet Take 320 mg by mouth daily 3 8 Active tiZANidine (ZANAFLEX) 4 MG tablet Take 4 mg by mouth 2 times daily 5 8 Active LYRICA 75 MG capsule Take 75 mg by mouth daily.. 5 8 Active pantoprazole (PROTONIX) 40 MG tablet Take 40 mg by mouth daily 5 8 Active NIFEdipine (PROCARDIA XL) 90 MG extended release tabletIndication s:dose recently upped to 120mg Take 120 mg by mouth daily 8 Active isosorbide mononitrate (IMDUR) 60 MG extended release tablet Take 60 mg by mouth daily 8 Active fenofibrate (TRICOR) 145 MG tablet Take 145 mg by mouth daily 3 8 Active nitroGLYCERIN (NITROSTAT) 0.4 MG SL tablet Take 0.4 mg by mouth as needed Active hydrochlorothiaz nimisha (HYDRODIURIL) 12.5 MG tablet Take 12.5 mg by mouth daily Active ezetimibe (ZETIA) 10 MG tablet Take 10 mg by mouth daily Active DULoxetine (CYMBALTA) 60 MG extended release capsule Take 60 mg by mouth daily Active lidocaine (LMX) 4 % creamIndications :Status post lumbar spinal fusion,Lumbosacr al spondylosis without myelopathy Apply a half dollar sized amount to intact skin topically up to twice daily as needed for pain 1 Tube 1 9 Active Active Problems Problem Noted Date Diagnosed Date Spondylolisthesis of lumbar region 06/04/2018 Cardiovascular stress test abnormal 05/23/2018 Carotid artery stenosis 05/23/2018 Chest pain 05/23/2018 Coronary arteriosclerosis 05/23/2018 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 Hyperlipidemia 05/23/2018 Hypertensive disorder 05/23/2018 Osteoarthrosis 05/23/2018 Peripheral vascular disease 05/23/2018 Spondylolisthesis of lumbosacral region 05/23/20 18 Family History Medical History Relation Name Comments High Blood Pressure Brother 1 x 1 High Cholesterol Brother 1 x 1 Other Brother 1 x 1 BPH Cancer Brother 2 x 1 blood cancer / lymphoma Heart Attack Father at age 40s Heart Attack Mother Stroke Mother High Blood Pressure Sister 1 x 1 High Cholesterol Sister 1 x 1 Cancer Sister 2 x 1 ovarian cancer Diabetes Son x 2 Relation Name Status Comments Brother 1 x 1 Alive Brother 2 x 1 Daughter none Father Mother Sister 1 x 1 Alive Sister 2 x 1 Son x 2 Alive Social History Tobacco Use Types Packs/Day Years Used Date Smoking Tobacco: Every Day Cigarettes 0.5 50 Smokeless Tobacco: Never Alcohol Use Standard Drinks/Week Comments No 0 (1 standard drink = 0.6 oz pur e alcohol) Comments No Sex and Gender Information Value Date Recorded Sex Assigned at Not on file Legal Sex Female 1:14 PM EST Gender Identity Not on file Sexual Orientation Not on file Last Filed Vital Signs Vital Sign Reading Time Taken Comments Blood Pressure 110/41 06/07/2018 7:23 AM EDT Pulse 65 06/07/2018 7:23 AM EDT Temperature 36.7 C (98 F) 06/28/2019 10:26 AM EDT Respiratory Rate 16 06/06/2018 10:48 PM EDT Oxygen Saturation 96% 06/07/2018 7:23 AM EDT Inhaled Oxygen Concentration - - Weight 86.2 kg (190 lb) 06/28/2019 10:26 AM EDT Height 160 cm (5' 3 ) 06/28/2019 10:26 AM EDT Body Mass Index 33.66 06/28/2019 10:26 AM EDT Plan of Treatment Not on file Medical Devices Implanted Type Area Disc Ruler Operator Device Identifier Shelf Expiration Date Model / Serial / Lot Graft Canc Chip 30cc [id number] - [id number] Implanted:Qty : 1 on 06/04/2018 by Per Barber MD at [facility] Bone/Gra ft/Tissu e/Human/ Synth N/A: Spine Lumbar MUSCULOSKELETAL TRANSPLANT FND-PMM 04/02/2021 [id number] / [id number] / Kit Sealant Surgiflo Hemostatic Matrix - [id number] Implanted:Qty : 1 on 06/04/2018 by Per Barber MD at [facility] Bone/Gra ft/Tissu e/Human/ Synth N/A: Spine Lumbar JNJ: [employer]-M 04/17/2020 2994 / [id number] / Kit Sealant Surgiflo Hemostatic Matrix Implanted:Qty : 1 on 06/04/2018 by Per Barber MD at [facility] Bone/Gra ft/Tissu e/Human/ Synth N/A: Spine Lumbar JNJ: [employer]-PMM 01/15/2019 2994 / / [id number] Screw Polyaxial Reline-O 2s 6.5x55mm Implanted:Qty : 3 on 06/04/2018 by Per Barber MD at [facility] Screw/Pl ate/Nail /Emmanuel N/A: Spine Lumbar [employer]-PMM [id number] / / Screw Polyaxial Reline-O 6.5x50mm Implanted:Qty : 1 on 06/04/2018 by Per Barber MD at [facility] Screw/Pl ate/Nail /Emmanuel N/A: Spine Lumbar [employer]UV[employer]-PMM [id number] / / Wally-Cellular Bone Matrix 10cc - [id number] Implanted:Qty : 1 on 06/04/2018 by Per Barber MD at [facility] Spine N/A: Spine Lumbar [employer]-PMM 10/07/2022 [id number] / [id number] / Screw Lk Reline Opn Tulip 5.5mm Implanted:Qty : 6 on 06/04/2018 by Per Barber MD at [facility] Spine N/A: Spine Lumbar [employer]-PMM [id number] / / Impl Spine Coroent Mp Lg [id number] 4deg Implanted:Qty : 2 on 06/04/2018 by Per Barber MD at [facility] Spine N/A: Spine Lumbar [employer]-PMM [id number] / / Impl Spine Emmanuel Reline-O Lrdtc 5.5x70mm Implanted:Qty : 2 on 06/04/2018 by Per Barber MD at [facility] Spine N/A: Spine Lumbar [employer]-PMM [id number] / / Reline Reduction Screw Implanted:Qty : 2 on 06/04/2018 by Per Barber MD at [facility] N/A: Spine Lumbar Insurance MEDICARE MEDICARE Advance Directives * Full Code (Latest Code Status on File) Date Activated Date Inactivated Comments 06/04/2018 6:16 PM 06/07/2018 7:05 PM Care Teams Mechanical Engineering Officer Relationship Specialty Start Date End Date Jack Vogt MD [address] [address] PCP - General Internal Medicine 03/13/18
--- OUTSIDE RECORDS SUMMARY | 2025-03-12 16:10 | XMS_ITS | Encounter Summary ---
Author Organization [facility] Address [address] [facility] [place] [address] Care Team Providers Care Apartment Locator Name Role Phone Jack Vogt MD Primary Care Provider [phone] Encounter Details Date Type Department Care Team ([facility] Contact Info) Description 11/27/2023 Abstract [facility] 112 [facility] [address] [place] [id number] Jack Vogt MD 112 [facility] 110 [place] [address] Social History Tobacco Use Types Packs/Day Years [...] Upcoming Encounters Date Type Department Care Team ([facility] Contact Info) Description 03/17/2025 2:30 PM EDT Ancillary Procedure [facility] ULTR[facility] [address] [place] [address] 03/17/2025 3:00 PM EDT Ancillary Procedure [facility] DXA [address] [place] [address] documented as of this encounter Visit Diagnoses Not on filedocumented in this encounter Care Teams Apartment Locator Relationship Specialty Start Date End Date Jack Vogt MD 112 [facility] [address] [place] [address] PCP - General Internal Medicine 01/24/23 documented as of this encounter
--- OUTSIDE RECORDS SUMMARY | 2025-03-12 16:10 | XMS_ITS | Encounter Summary ---
Author Organization [facility] Address [address] [facility] [place] [address] Care Team Providers Care K 12 School Professional Name Role Phone Jack Vogt MD Primary Care Provider [phone] Encounter Details Date Type Department Care Team ([facility] Contact Info) Description 08/21/2023 Abstract [facility] 112 [facility] [address] [place] [phone] Jack Vogt MD 112 [facility] [address] [place] [address] Social History Tobacco Use Types Packs/Day Years [...] Upcoming Encounters Date Type Department Care Team ([facility] Contact Info) Description 03/17/2025 2:30 PM EDT Ancillary Procedure [facility] [address] [place] [address] 03/17/2025 3:00 PM EDT Ancillary Procedure [facility] DXA [address] [place] [address] documented as of this encounter Visit Diagnoses Not on filedocumented in this encounter Care Teams K 12 [employer] Professional Relationship Specialty Start Date End Date Jack Vogt MD 112 [facility] [address] [place] [address] PCP - General Internal Medicine 01/24/23 documented as of this encounter
--- OUTSIDE RECORDS SUMMARY | 2025-03-12 16:10 | XMS_ITS | Encounter Summary ---
Author Organization [facility] Address [address] [facility] [place] [address] Care Team Providers Care Drop Hammer Mechanic Name Role Phone Jack Vogt MD Primary Care Provider [phone] Encounter Details Date Type Department Care Team ([facility] Contact Info) Description 05/11/2023 Abstract [facility] 112 [facility] 110 [place] [phone] Jack Vogt MD 112 [facility] [address] [place] [address] Social History Tobacco Use Types Packs/Day Years [...] Upcoming Encounters Date Type Department Care Team ([facility] Contact Info) Description 03/17/2025 2:30 PM EDT Ancillary Procedure [facility] [address] [place] [address] 03/17/2025 3:00 PM EDT Ancillary Procedure [facility] DXA [address] [place] [address] documented as of this encounter Visit Diagnoses Not on filedocumented in this encounter Care Teams Drop Hammer Mechanic Relationship Specialty Start Date End Date Jack Vogt MD 112 [facility] [address] [place] [address] PCP - General Internal Medicine 01/24/23 documented as of this encounter
--- OUTSIDE RECORDS SUMMARY | 2025-03-12 16:10 | XMS_ITS | Encounter Summary ---
Author Organization [facility] Address [address] [place] [address] Care Team Providers Care Supervisor Public Message Service Name Role Phone Jack Vogt MD Primary Care Provider [phone] Encounter Details Date Type Department Care Team (Late Contact Info) Description 07/25/2023 Clinisync Result Encounter [facility] External Department Unsolicited [...] Upcoming Encounters Date Type Department Care Team ([facility] Contact Info) Description 03/17/2025 2:30 PM EDT Ancillary Procedure [facility] [address] [place] [address] 03/17/2025 3:00 PM EDT Ancillary Procedure [facility] DXA [address] [place] [address] documented as of this encounter Procedures Procedure Name Priority Date/Time Associated Diagnosis Comments MR ABDOMEN W AND WO CONTRAST 07/25/2023 3:55 PM EST documented in this encounter Results * MR abdomen w and wo contrast (07/25/2023 3:55 PM EST) Anatomical Region Laterality Modality Abdomen Magnetic Resonan ce 07/25/2023 3:55 PM EST Narrative 07/25/2023 3:55 PM EST [address] [address] Magnetic Resonance Report Signed Patient: Lupe Nguyen MR#: [id number] : 1950 Acct:[id number] Age/Sex: 72 / F ADM Date: 07/24/23 Loc: LAB Attending Dr: Alfredo Cardenas M.D. Ordering Physician: Alfredo Cardenas M.D. Date of Service: 07/24/23 Procedure(s): MR abdomen wo/w con Accession Number(s): [id number] cc: JACK VOGT ; Alfredo Cardenas M.D. [place] [address] Patient Name: LUPE NGUYEN MRN: [id number] date: 1950 Sex: F Assigned Patient Location: LAB Current Patient Location: LAB Accession/Order Number: [id number] Exam Date: 07/24/2023 13:45 Report Date: 07/25/2023 15:55 At the request of: ALFREDO CARDENAS Procedure: MR abdomen wo/w con EXAM: MR abdomen wo/w con 07/24/2023 COMPARISON STUDY: MRI of the abdomen with and without contrast 08/29/2022. CT of the abdomen and pelvis without contrast 03/24/2021. TECHNIQUE: Coronal T1 and T2, sagittal T2, axial T2, axial T1 in and out of phase, and axial as well as coronal T1 images were obtained following administration of intravenous gadolinium contrast. HISTORY: Kidney Lesion N28.9 FINDINGS: A hemorrhagic/proteinaceous exophytic cyst at the upper pole of the right kidney involves the anterolateral cortex. On image #6 of series 13 this measures 5 x 10 mm. An intracortical similar appearing lesion involving the anterior and medial cortex upper pole left kidney, image #8 of series 13 measures 9 x 10 mm. A small exophytic cyst involving the posterior cortex of the left kidney near the inferior pole measures 7 mm superior to inferior, image 11 of series 8. An intracortical cyst involving the posterior cortex upper pole right kidney measures 6 mm. Intracortical angiomyolipoma within the posterior cortex at the midpole level of the right kidney, image #9 of series 9 measures 6 mm. A midpole similar appearing lesion on the left within the posterior cortex measures 7 mm, image 11 of series 9. Bowel pattern is nonobstructive. Aorta is nonaneurysmal. No new significantly enlarged adenopathy. Right hepatic lobe measures 16 cm superior to inferior. The spleen measures 8.9 cm superior to inferior. There is a focal area of capsular retraction of the upper pole of the spleen again identified. This is seen on coronal image #17 of series 5. This is associated with subcapsular areas of decreased T1 and T2 signal intensity. There is dextrocurvature of the spine centered at the thoracolumbar junction. Chronic inferior endplate Schmorl's node formation versus compression deformity at the L1 level is noted. Spondylitic/facet arthritic changes lumbar spine are again identified as well as evidence of posterior dory and screw fixation from L4 through S1 levels. Visualized portions of the liver, pancreas, and adrenals appear unremarkable. MR/MR abdomen wo/w con IMPRESSION: 1. Prior cholecystectomy. 2. 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 3. Mild background global atrophic changes of both kidneys without hydronephrosis. 4. Combination of simple and hemorrhagic/proteinaceous cysts involving each kidney again noted and unchanged. Subcentimeter angiomyolipomas at the midpole levels of each kidney also again noted. 5. Posterior dory and screw fixation from L4 through S1 levels noted. Lumbar scoliosis with severe spondylitic/facet arthritic change is again identified. Chronic inferior endplate compression deformity versus Schmorl's node formation at the L1 level again identified. Electronically authenticated by: TAWANNA WATKINS Date: 07/25/2023 15:55 Dictated By: Chirag Esquivel M.D. Signed By: 07/25/23 1557 DD/ 1555 TD/TT: Cargo Vessel Stewardess: Procedure Note Radiology, Radiologist, - 07/26/2023 [place] [address] Magnetic Resonance Report Signed Patient: Lupe Nguyen LMR#: [id number] : 1950Acct:[id number] Age/Sex: 72 / FADM Date: 07/24/23 Loc: LAB Attending Dr: Alfredo Cardenas M.D. Ordering Physician: Alfredo Cardenas M.D. Date of Service: 07/24/23 Procedure(s): MR abdomen wo/w con Accession Number(s): [id number] cc: JACK VOGT ; Alfredo Cardenas M.D. [place] [address] Patient Name: LUPE NGUYEN MRN: [id number] date: 1950 Sex: F Assigned Patient Location: LAB Current Patient Location: LAB Accession/Order Number: [id number] Exam Date: 07/24/2023 13:45 Report Date: 07/25/2023 15:55 At the request of: ALFREDO CARDENAS Procedure: MR abdomen wo/w con EXAM: MR abdomen wo/w con 07/24/2023 COMPARISON STUDY: MRI of the abdomen with and without contrast 08/29/2022.CT of the abdomen and pelvis without contrast 03/24/2021. TECHNIQUE: Coronal T1 and T2, sagittal T2, axial T2, axial T1 in and outof phase, and axial as well as coronal T1 images were obtained following administration of intravenous gadolinium contrast. HISTORY: Kidney Lesion N28.9 FINDINGS: A hemorrhagic/proteinaceous exophytic cyst at the upper pole ofthe right kidney involves the anterolateral cortex. On image #6 of series 13this measures 5 x 10 mm. An intracortical similar appearing lesion involvingthe anterior and medial cortex upper pole left kidney, image #8 of series 13 measures 9 x 10 mm. A small exophytic cyst involving the posterior cortex of the left kidneynear the inferior pole measures 7 mm superior to inferior, image 11 of series8. An intracortical cyst involving the posterior cortex upper pole right kidney measures 6 mm. Intracortical angiomyolipoma within the posterior cortex at the midpolelevel of the right kidney, image #9 of series 9 measures 6 mm. A midpole similar appearing lesion on the left within the posterior cortex measures 7 mm,image 11 of series 9. Bowel pattern is nonobstructive. Aorta is nonaneurysmal. No newsignificantly enlarged adenopathy. Right hepatic lobe measures 16 cm superior to inferior. The spleenmeasures 8.9 cm superior to inferior. There is a focal area of capsular retraction ofthe upper pole of the spleen again identified. This is seen on coronal image#17 of series 5. This is associated with subcapsular areas of decreased T1 and T2 signal intensity. There is dextrocurvature of the spine centered at the thoracolumbarjunction. Chronic inferior endplate Schmorl's node formation versus compression deformity at the L1 level is noted. Spondylitic/facet arthritic changes lumbar spineare again identified as well as evidence of posterior dory and screw fixationfrom L4 through S1 levels. Visualized portions of the liver, pancreas, and adrenals appearunremarkable. MR/MR abdomen wo/w con IMPRESSION: 1. Prior cholecystectomy. 2. 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 3. Mild background global atrophic changes of both kidneys without hydronephrosis. 4. Combination of simple and hemorrhagic/proteinaceous cysts involvingeach kidney again noted and unchanged. Subcentimeter angiomyolipomas at themidpole levels of each kidney also again noted. 5. Posterior dory and screw fixation from L4 through S1 levels noted.Lumbar scoliosis with severe spondylitic/facet arthritic change is againidentified. Chronic inferior endplate compression deformity versus Schmorl's node formation at the L1 level again identified. Electronically authenticated by: TAWANNA WATKINS Date: 07/25/2023 15:55 Dictated By: Chirag Esquivel M.D. Signed By:07/25/23 1557 DD/ 1555 TD/TT: Cargo Vessel Stewardess: us Generic External Data Provider IMG MRI PROCEDURE S Final Result documented in this encounter Visit Diagnoses Not on filedocumented in this encounter Care Teams Supervisor Public Message Service Relationship Specialty Start Date End Date Jack Vogt MD [address] [place] [address] PCP - General Internal Medicine 01/24/23 documented as of this encounter
--- OUTSIDE RECORDS SUMMARY | 2025-03-12 16:10 | XMS_ITS | Encounter Summary ---
Author Organization [facility] Address [address] [place] [address] Care Team Providers Care Needle Loom Operator Helper Name Role Phone Jack Vogt MD Primary Care Provider [phone] Encounter Details Date Type Department Care Team (Late Contact Info) Description 08/19/2023 Clinisync Result Encounter [facility] External Department Unsolicited [...] Upcoming Encounters Date Type Department Care Team ([facility] Contact Info) Description 03/17/2025 2:30 PM EDT Ancillary Procedure [facility] ULTR[facility] [address] [place] [address] 03/17/2025 3:00 PM EDT Ancillary Procedure [facility] DXA [address] [place] [address] documented as of this encounter Procedures Procedure Name Priority Date/Time Associated Diagnosis Comments US RENAL DOPPLER 08/19/2023 4:55 AM EST documented in this encounter Results * US RENAL DOPPLER (08/19/2023 4:55 AM EST) Anatomical Region Laterality Modality Radiographic Ruma ging 08/19/2023 4:55 AM EST Narrative 08/19/2023 4:55 AM EST [address] [address] Ultrasound Report Signed Patient: LUPE NGUYEN MR#: [id number] : 1950 Acct:[id number] Age/Sex: 72 / F ADM Date: 08/17/23 Loc: CARD Attending Dr: SACHIN MATTHEWS Ordering Physician: SACHIN MATTHEWS Date of Service: 08/17/23 Procedure(s): US renal doppler Accession Number(s): [id number] cc: JACK VOGT ; SACHIN MATTHEWS [place] [id number] Patient Name: LUPE NGUYEN MRN: [id number] date: 1950 Sex: F Assigned Patient Location: CARD Current Patient Location: CARD Accession/Order Number: [id number] Exam Date: 08/17/2023 11:10 Report Date: 08/19/2023 04:55 At the request of: SACHIN MATTHEWS Procedure: US renal doppler EXAMINATION: US renal doppler HISTORY: Atherosclerosis Of Renal Arteries COMPARISON: Ultrasound kidneys 02/22/2022 TECHNIQUE: Ultrasound examination was performed of the kidneys and bladder. FINDINGS: Right Kidney: Height: 4.0 cm Length: 7.3 cm Width: 4.4 cm Right Renal Artery Proximal: 103.6 cm/s / 18.0 cm/s Mid: 62.9 cm/s / 12.5 cm/s Distal: 49.9 cm/s / 12.4 cm/s Right Arcuate Artery Superior: 26.6 cm/s / 8.7 cm/s Middle: 25.9 / 10.9 cm/s Inferior: 32.3 / 10.9 cm/s Left Kidney: Height: 5.3 cm Length: 11.0 cm Width: 5.1 cm Left Renal Artery Proximal PSV: 138.1 cm/s Proximal EDV: 12.6 cm/s Mid PSV: 75.1 cm/s Mid EDV: 24.6 cm/s Distal PSV: 48.1 cm/s Distal EDV: 15.0 cm/s Left Arcuate Artery Superior PSV: 55.3 cm/s Superior EDV: 18.0 cm/s Middle PSV: 48.7 cm/s Middle EDV: 20.2 cm/s Inferior PSV: 68.5 cm/s Inferior EDV: 18.0 cm/s Aorta PSV: 108 cm/s Aorta EDV: 35.6 cm/s US/US renal doppler IMPRESSION: 1. Grossly stable bilateral cortical thinning and stable simple and complex cysts. 2. No hydronephrosis or appreciable stones. 3. Borderline elevated resistive index within the renal arteries and arcuate arteries and changing waveform compatible with slightly narrowed vessels and increased resistance. Electronically authenticated by: EDWIN SMITH Date: 08/19/2023 04:55 Dictated By: Ediwn Smith M.D. Signed By: 08/19/23456 DD/ 4 TD/TT: Application Packager: Procedure Note Radiology, Radiologist, MD - 08/21/2023 [place] [address] Ultrasound Report Signed Patient: LUPE NGUYEN LMR#: [id number] : 1950Acct:[id number] Age/Sex: 72 / FADM Date: 08/17/23 Loc: CARD Attending Dr: SACHIN MATTHEWS Ordering Physician: SACHIN MATTHEWS Date of Service: 08/17/23 Procedure(s): US renal doppler Accession Number(s): [id number] cc: JACK VOGT ; SACHIN MATTHEWS [place] [address] Patient Name: LUPE NGUYEN MRN: [id number] date: 1950 Sex: F Assigned Patient Location: CARD Current Patient Location: CARD Accession/Order Number: [id number] Exam Date: 08/17/2023 11:10 Report Date: 08/19/2023 04:55 At the request of: SACHIN MATTHEWS Procedure: US renal doppler EXAMINATION: US renal doppler HISTORY: Atherosclerosis Of Renal Arteries COMPARISON: Ultrasound kidneys 02/22/2022 TECHNIQUE: Ultrasound examination was performed of the kidneys andbladder. FINDINGS: Right Kidney: Height: 4.0 cm Length: 7.3 cm Width: 4.4 cm Right Renal Artery Proximal: 103.6 cm/s / 18.0 cm/s Mid: 62.9 cm/s / 12.5 cm/s Distal: 49.9 cm/s / 12.4 cm/s Right Arcuate Artery Superior: 26.6 cm/s / 8.7 cm/s Middle: 25.9 / 10.9 cm/s Inferior: 32.3 / 10.9 cm/s Left Kidney: Height: 5.3 cm Length: 11.0 cm Width: 5.1 cm Left Renal Artery Proximal PSV: 138.1 cm/s Proximal EDV: 12.6 cm/s Mid PSV: 75.1 cm/s Mid EDV: 24.6 cm/s Distal PSV: 48.1 cm/s Distal EDV: 15.0 cm/s Left Arcuate Artery Superior PSV: 55.3 cm/s Superior EDV: 18.0 cm/s Middle PSV: 48.7 cm/s Middle EDV: 20.2 cm/s Inferior PSV: 68.5 cm/s Inferior EDV: 18.0 cm/s Aorta PSV: 108 cm/s Aorta EDV: 35.6 cm/s US/US renal doppler IMPRESSION: 1. Grossly stable bilateral cortical thinning and stable simple andcomplex cysts. 2. No hydronephrosis or appreciable stones. 3. Borderline elevated resistive index within the renal arteries andarcuate arteries and changing waveform compatible with slightly narrowed vesselsand increased resistance. Electronically authenticated by: EDWIN SMITH Date: 08/19/2023 04:55 Dictated By: Edwin Smith M.D. Signed By:08/19/237 DD/ 045 TD/TT: Application Packager: us Generic External Data Provider IMG XR PROCEDURES Final Result documented in this encounter Visit Diagnoses Not on filedocumented in this encounter Care Teams Needle Loom Operator Helper Relationship Specialty Start Date End Date Jack Vogt MD [address] [place] [address] PCP - General Internal Medicine 01/24/23 documented as of this encounter
--- OUTSIDE RECORDS SUMMARY | 2025-03-12 16:10 | XMS_ITS | Encounter Summary ---
Author Organization [facility] Address [address] [facility] [place] [address] Care Team Providers Care Counter Top Assembler Name Role Phone Jack Vogt MD Primary Care Provider [phone] Encounter Details Date Type Department Care Team ([facility] Contact Info) Description 12/28/2023 Abstract [facility] [address] [facility] [address] [place] [id number] Jack Vogt MD [address] [facility] [address] [place] [address] Social History Tobacco Use Types Packs/Day Years [...] Encounters Date Type Department Care Team ([facility] Contact Info) Description 03/17/2025 2:30 PM EDT Ancillary Procedure [facility] ULTR[facility]OUND [address] [place] [address] 03/17/2025 3:00 PM EDT Ancillary Procedure [facility] DXA [address] [place] [address] documented as of this encounter Visit Diagnoses Not on filedocumented in this encounter Care Teams Counter Top Assembler Relationship Specialty Start Date End Date Jack Vogt MD [address] [facility] [address] [place] [address] PCP - General Internal Medicine 01/24/23 documented as of this encounter
--- OUTSIDE RECORDS SUMMARY | 2025-03-12 16:10 | XMS_ITS | Encounter Summary ---
Author Organization [facility] Address [address] [facility] [place] [address] Care Team Providers Care Computed Tomography Scanner Operator Name Role Phone Jack Vogt MD Primary Care Provider [phone] Encounter Details Date Type Department Care Team ([facility] Contact Info) Description 02/06/2024 Orders Only [facility] [address] [place] [address] Unallocated, Noms Provider, [address] [place] [address] Social History Tobacco Use Types Packs/Day Years [...] Upcoming Encounters Date Type Department Care Team ([facility] Contact Info) Description 03/17/2025 2:30 PM EDT Ancillary Procedure [facility] ULTRASOUND [address] [place] [address] 03/17/2025 3:00 PM EDT Ancillary Procedure [facility] DXA [address] [place] [address] documented as of this encounter Procedures Procedure Name Priority Date/Time Associated Diagnosis Comments MAMMOGRAM* Routine 02/05/2024 1:10 PM EDT documented in this encounter Results * MAMMOGRAM* (02/05/2024 1:10 PM EDT) Anatomical Region Laterality Modality Radiographic Ruma ging us [facility]oms Provider Unallocated MD ARAUZ XR PROCEDURES F inal Result documented in this encounter Visit Diagnoses Not on filedocumented in this encounter Care Teams Computed Tomography Scanner Operator Relationship Specialty Start Date End Date Jack Vogt MD [address] [facility] [address] [place] [address] PCP - General Internal Medicine 01/24/23 documented as of this encounter
--- NOTE | 2025-03-12 16:41 | CT_ITS ---
The [address] [address] Patient Name: LUPE NGUYEN MRN: [id number] date: 1950 Sex: F Assigned Patient Location: ER Current Patient Location: ER Accession/Order Number: [id number] Exam Date: 03/12/2025 17:02 Report Date: 03/12/2025 17:05 At the request of: BARBY KAMARA MD Procedure: CT head/brain wo con CT BRAIN WITHOUT CONTRAST: CLINICAL HISTORY: Fall, on Eliquis COMPARISON: None TECHNIQUE: Contiguous axial unenhanced images were obtained through the brain. This CT exam was performed using one or more following dose reduction techniques: Automated exposure control, adjustment of the mA and/or kV according to patient size, or use of iterative reconstruction technique. FINDINGS: There is no evidence of midline shift, intra or extra-axial fluid collection, hemorrhage or CT evidence of acute large vascular distribution stroke. Encephalomalacia right anterior inferior frontal lobe possibly sequelae of remote traumatic injury. Remote left caudate head lacunar stroke. Otherwise mild central involutional changes and chronic small vessel disease. There are intracranial vascular calcifications. Visualized intraorbital contents appear unremarkable. Visualized paranasal sinuses are clear. The surrounding soft tissues are normal. CT/CT head/brain wo con IMPRESSION: NO ACUTE INTRACRANIAL ABNORMALITY. CHRONIC SMALL VESSEL ISCHEMIC DISEASE. Impression dictated by: Bam Long M.D. 03/12/2025 5:05 PM Dictation Location: [place] [address] Electronically authenticated by: [id number] Y Date: 03/12/2025 17:05
--- NOTE | 2025-03-12 16:41 | XR_ITS ---
The [address] [address] Patient Name: LUPE NGUYEN MRN: [id number] date: 1950 Sex: F Assigned Patient Location: ER Current Patient Location: ED.MAIN Accession/Order Number: [id number] Exam Date: 03/12/2025 17:22 Report Date: 03/12/2025 18:49 At the request of: BARBY KAMARA MD Procedure: XR hip RT min 2V XR hip RT min 2V 03/12/2025 5:20 PM SIGNS AND SYMPTOMS: ^fall, right hip pain PROTOCOL: Frontal and frog-leg views of the right hip COMPARISON: None FINDINGS: The right hip joint space is preserved. There is a displaced fracture along the symphysis pubis and superior pubic ramus on the right. Vascular calcifications are present in the pelvis. XR/XR hip RT min 2V IMPRESSION: There is a displaced fracture along the symphysis pubis and superior pubic ramus on the right. The right hip is intact. Impression dictated by: Gustabo Elizabeth M.D. 03/12/2025 6:49 PM Dictation Location: [place] [address] Electronically authenticated by: [id number] Y Date: 03/12/2025 18:49
--- NOTE | 2025-03-12 16:41 | XR_ITS ---
The [place] [id number] Patient Name: LUPE NGUYEN MRN: [id number] date: 1950 Sex: F Assigned Patient Location: ER Current Patient Location: ER Accession/Order Number: [id number] Exam Date: 03/12/2025 17:21 Report Date: 03/12/2025 17:22 At the request of: BARBY KAMARA MD Procedure: XR shoulder RT min 2V XR shoulder RT min 2V 03/12/2025 5:20 PM SIGNS AND SYMPTOMS: ^fall, right shoulder pain PROTOCOL: Frontal, Grashey, and scapular Y views of the right shoulder COMPARISON: None FINDINGS: Mild hypertrophic changes are noted in the acromioclavicular joint. Degenerative changes are noted in the glenohumeral joint. There is no fracture or dislocation. Cortical irregularity is noted in the greater tuberosity of the humeral head suspicious for underlying rotator cuff pathology. The visualized thorax is grossly intact. There is a remote healed right third rib fracture anteriorly. XR/XR shoulder RT min 2V IMPRESSION: No fracture or dislocation. Degenerative changes are noted in the right shoulder with findings suspicious for underlying rotator cuff pathology. Impression dictated by: Gustabo Elizabeth M.D. 03/12/2025 5:22 PM Dictation Location: [place] [address] Electronically authenticated by: [id number] Y Date: 03/12/2025 17:22
--- NOTE | 2025-03-12 16:41 | XR_ITS ---
The [address] [address] Patient Name: LUPE NGUYEN MRN: [id number] date: 1950 Sex: F Assigned Patient Location: ER Current Patient Location: ER Accession/Order Number: [id number] Exam Date: 03/12/2025 17:00 Report Date: 03/12/2025 17:02 At the request of: BARBY KAMARA MD Procedure: XR chest 1V PA CHEST: CLINICAL HISTORY: weak COMPARISON: 09/19/2023 FINDINGS: Sternotomy wires. Mildly enlarged cardiomediastinal. Lungs are clear. No effusion or pneumothorax. XR/XR chest 1V IMPRESSION: Negative acute pleural-parenchymal disease Impression dictated by: Bam Long M.D. 03/12/2025 5:02 PM Dictation Location: [place] [address] Electronically authenticated by: [id number] Y Date: 03/12/2025 17:02
--- NOTE | 2025-03-12 16:41 | ECG_ITS ---
The [facility] Test Date: 2025-03-12 Pat Name: LUPE NGUYEN Department: Room: - Gender: Female [employer]: : 1950 Requested By: [id number] Order Number: [id number] Reading MD: SACHIN MATTHEWS M.D. Measurements Intervals [place] Rate: 106 P: 67 [place]: 160 QRS: 17 QRSD: 90 T: 112 QT: 320 QTc: 382 Interpretive Statements 1120 Sinus tachycardia 4068 Nonspecific Twave abnormality 6220 Possible left atrial enlargement 9140 abnormal rhythm ECG Compared to ECG 03/24/2021 16:20:27 Heart rate has increased by 42 bpm Electronically Signed On 03-12-2025 20:02:56 EDT by SACHIN MATTHEWS M.D.
--- NOTE | 2025-03-12 16:42 | ED.GENADUL1 ---
HPI HPI - General Adult General Chief complaint: Weakness Stated complaint: FALL Time Seen by Provider: 03/12/25 16:10 Source: patient Mode of arrival: Wheelchair Limitations: no limitations History of Present Illness HPI narrative: 74-year-old female presents for a fall. She fell last night but then fell again this morning and she states she hit the right side of her head and also her right shoulder and her right hip. She states she fell because she is shaky and she does not know why she is shaky. The patient is on Eliquis. She states she is lost a lot of weight recently, around 30 pounds in the last few months. She saw her doctor about 2 weeks ago for that issue. It is not clear what evaluation was done. Related Data Home Medications ?Medication ?Instructions ?Recorded ?Confirmed apixaban 2.5 mg tablet (Eliquis) 2.5 mg PO Q12H 09/18/23 03/12/25 duloxetine 30 mg capsule,delayed 30 mg PO QDAY 09/18/23 03/12/25 release ezetimibe 10 mg tablet 10 mg PO QDAY 09/18/23 03/12/25 fenofibrate nanocrystallized 145 145 mg PO QDAY 09/18/23 03/12/25 mg tablet hydralazine 25 mg tablet 50 mg PO TID 09/18/23 03/12/25 isosorbide mononitrate 60 mg 60 mg PO QDAY 09/18/23 03/12/25 tablet,extended release 24 hr pantoprazole 40 mg tablet,delayed 40 mg PO QDAY 09/18/23 03/12/25 release valsartan 320 mg tablet 320 mg PO QDAY 09/18/23 03/12/25 zolpidem 10 mg tablet 10 mg PO .QHS PRN sleep 09/18/23 03/12/25 bupropion HCl 75 mg tablet 75 mg PO DAILY 03/12/25 03/12/25 nitroglycerin 0.4 mg sublingual 0.4 mg sublingual Q5M PRN chest 03/12/25 03/12/25 tablet pain Previous Rx's ?Medication ?Instructions ?Recorded metoprolol tartrate 75 mg tablet 75 mg PO BID #60 tabs 09/20/23 Allergies Allergy/AdvReac Type Severity Reaction Status Date / Time iodine Allergy Anaphylaxis Verified 09/18/23 20:23 Opioid HPI Opioid Management Most Recent Opioid Data: Last Pain Scale 4 09/19/23, 20:00 Review of Systems ROS Narrative A ten point review of systems is negative except as noted above. PFSH PFSH Medical History (Updated 03/12/25 @ 18:38 by Andreas Rick MD) Chronic heart failure with preserved ejection fraction (HFpEF) ?I50.32 - Chronic diastolic (congestive) heart failure (ICD-10) Stage 3b chronic kidney disease (CKD) ?N18.32 - Chronic kidney disease, stage 3b (ICD-10) CAD (coronary artery disease) ?I25.10 - Atherosclerotic heart disease of [place] coronary artery without angina pectoris (ICD-10) History of pulmonary embolism ?Z86.711 - Personal history of pulmonary embolism (ICD-10) Hypertension ?I10 - Essential (primary) hypertension (ICD-10) PVD (peripheral vascular disease) ?I73.9 - Peripheral vascular disease, unspecified (ICD-10) High cholesterol ?E78.00 - Pure hypercholesterolemia, unspecified (ICD-10) DVT (deep venous thrombosis) ?I82.409 - Acute embolism and thrombosis of unspecified deep veins of unspecified lower extremity (ICD-10) Pulmonary air embolism ?T79.0XXA - Air embolism (traumatic), initial encounter (ICD-10) CHF (congestive heart failure) ?I50.9 - Heart failure, unspecified (ICD-10) 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 ?I70.201 - Unspecified atherosclerosis of [place] arteries of extremities, right leg (ICD-10) Stenosis of artery of left lower extremity ?I70.202 - Unspecified atherosclerosis of [place] arteries of extremities, left leg (ICD-10) Fibromyalgia ?M79.7 - Fibromyalgia (ICD-10) Osteoporosis ?M81.0 - Age-related osteoporosis without current pathological fracture (ICD-10) Osteoarthritis ?M19.90 - Unspecified osteoarthritis, unspecified site (ICD-10) Heart attack ?I21.9 - Acute myocardial infarction, unspecified (ICD-10) Surgical History (Updated 09/19/23 @ 00:13 by Divya Mendoza) H/O colectomy ?Z90.49 - Acquired absence of other specified parts of digestive tract (ICD-10) Family History (Updated 09/19/23 @ 00:15 by Divya Mendoza) Father Family history of myocardial infarction Family history of hypertension Mother Family history of myocardial infarction Family history of stroke Family history of hypertension Brother Family history of hypertension Family history of cancer Sister Family history of cancer Social History (Updated 09/19/23 @ 00:19 by Divya Mendoza) Smoking status: Current every day smoker Second hand tobacco smoke exposure: No Non-prescribed substance use: cannabis (any form) Previous occupational history: retired Known occupational exposures/hazards: No Highest level of school completed/degree received: some college, no degree Do you want help with school or training: No Are you now , , , , never or living with a partner: In a typical week, how many times do you talk on the telephone with family, friends, or neighbors: 3 or more times per week How often do you get together with friends or relatives: 3 or more times per week How often do you attend baptism or evangelical services: never Do you belong to any clubs or organizations such as baptism groups unions, [employer] or athletic groups, or school groups: no Total score: 1 Score interpretation: A score of less than or equal to 1 indicates the most socially isolated. Little interest or pleasure in doing things: not at all Feeling down, depressed, or hopeless: not at all Feel stressed/tense/nervous/anxious/difficulty sleeping: to some extent Life stressors: unknown source of stress Due to disability, difficulty making decisions: No Do you think of yourself as: straight/heterosexual Gender Identity: female Exam Narrative Exam Narrative: Nurses note and vital signs reviewed and patient is not hypoxic. General: The patient appears well and in no apparent distress. Patient is resting comfortably on cart. Skin: Warm, dry, no pallor noted. There is no rash noted. Head: Normocephalic, atraumatic; no hematoma bruising or abrasion present. Eye: Normal conjunctiva, no drainage Ears, Nose, Mouth, and Throat: oral mucosa is moist. Nares patent. Cardiovascular: Regular Rate and Rhythm Respiratory: Patient is in no distress, no accessory muscle use, lungs are clear to auscultation, no wheezing, rales or rhonchi Back: non-tender, including C-spine GI: Soft and nontender Musculoskeletal: She has some light yellow bruising to the anterior surface of the right shoulder. The right elbow and wrist are nontender and have full range of motion. Right shoulder has good range of motion. Neurological: A&O x4, normal speech; mildly tremorous Psychiatric: Cooperative Constitutional Vital Signs, click to edit/add: Last Vital Signs Temp 98.3 F 03/12/25 16:08 Pulse 101 H 03/12/25 16:50 Resp 15 03/12/25 16:50 BP 270/100 H 03/12/25 18:23 Pulse Ox 97 03/12/25 16:50 O2 Del Method Room Air 03/12/25 16:08 Course Vital Signs Vital signs: Vital Signs Temperature 98.3 F 03/12/25 16:08 Pulse Rate 72 03/12/25 16:08 Respiratory Rate 18 03/12/25 16:08 Blood Pressure 270/130 H 03/12/25 16:08 Pulse Oximetry 97 03/12/25 16:08 Oxygen Delivery Method Room Air 03/12/25 16:08 Temperature 98.3 F 03/12/25 16:08 Pulse Rate 101 H 03/12/25 16:50 Respiratory Rate 15 03/12/25 16:50 Blood Pressure 270/100 H 03/12/25 18:23 Pulse Oximetry 97 03/12/25 16:50 Oxygen Delivery Method Room Air 03/12/25 16:08 Medical Decision Making MDM Narrative Medical decision making narrative: The patient presented with weakness but no chest pain. She was found to have elevated troponin level of 243 and the repeat is 324. Renal function is worse than her baseline with a BUN of 45 and a creatinine of 2.89. She has been given IV fluids. Hip x-ray also shows what appears to be a pelvic fracture and pelvic x-ray is pending. The patient is on Eliquis and was not given IV heparin. 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 Differential Diagnosis Differential Diagnosis: Contusion, fracture, dehydration Lab Data Lab results reviewed: Yes I reviewed the patient's lab results Labs: Lab Results 03/12/25 03/12/25 Range/Units 16:40 17:50 WBC 7.0 (4.0-11.0) 10^3/uL RBC 4.23 (4.20-5.40) 10^6/uL Hgb 12.3 (12.0-16.0) g/dL Hct 37.2 (36.0-48.0) % MCV 87.9 (81.0-99.0) fL MCH 29.1 (26.7-34.0) pg MCHC 33.1 (29.9-35.2) g/dL RDW 16.3 H (11.0-15.0) % Plt Count 251 (150-450) 10^3/uL MPV 10.1 (9.5-13.5) fL Neut % (Auto) 76.6 H (43.0-75.0) % Lymph % (Auto) 12.4 L (20.5-60.0) % [place] % (Auto) 9.0 (1.7-12.0) % Eos % (Auto) 1.1 (0.9-7.0) % Baso % (Auto) 0.6 (0.2-2.0) % Neut # (Auto) 5.4 (1.4-6.5) 10^3/uL Lymph # (Auto) 0.9 L (1.2-3.8) 10^3/uL [place] # (Auto) 0.6 (0.3-0.8) 10^3/uL Eos # (Auto) 0.1 (0.0-0.7) 10^3/uL Baso # (Auto) 0.0 (0.0-0.1) 10^3/uL Abs Immat Gran (auto) 0.02 (0.00-0.03) 10^3/uL Imm/Tot Granulo (auto) 0.3 (0.0-0.5) % Sodium 138 (136-145) mmol/L Potassium 4.2 (3.5-5.1) mmol/L Chloride 102 (98-107) mmol/L Carbon Dioxide 25.4 (21.0-32.0) mmol/L Anion Gap 14.8 BUN 45.0 H (7.0-18.0) mg/dL Creatinine 2.86 H (0.55-1.02) mg/dL Est GFR ( Amer) 20 L (>=60 mL/min/1.73m^2) Est GFR (Non-Af Amer) 16 L (>=60 mL/min/1.73m^2) BUN/Creatinine Ratio 15.7 Glucose 87 (74-106) mg/dL Calcium 9.7 (8.5-10.1) mg/dL Troponin I High Sens 243.1 H* 324.4 H* (4.0-51.3) pg/mL Imaging Data Chest x-ray: Radiologist's impression: ITS Impressions Chest X-Ray 03/12/25 16:41 IMPRESSION: Negative acute pleural-parenchymal disease Impression dictated by: Bam Long M.D. 03/12/2025 5:02 PM Dictation Location: [employer] Electronically authenticated by: [id number] Y Date: 03/12/2025 17:[address] 03/12/25 16:41 IMPRESSION: NO ACUTE INTRACRANIAL ABNORMALITY. CHRONIC SMALL VESSEL ISCHEMIC DISEASE. Impression dictated by: Bam Long M.D. 03/12/2025 5:05 PM Dictation Location: [employer] Electronically authenticated by: [id number] Y Date: 03/12/2025 17:05 Shoulder X-Ray 03/12/25 16:41 IMPRESSION: No fracture or dislocation. Degenerative changes are noted in the right shoulder with findings suspicious for underlying rotator cuff pathology. Impression dictated by: Gustabo Elizabeth M.D. 03/12/2025 5:22 PM Dictation Location: [employer] Electronically authenticated by: [id number] Y Date: 03/12/2025 17:22 ECG Data Attestation: I personally reviewed and interpreted this ECG as follows: (EKG on my interpretation shows sinus rhythm with a rate of 106) Critical Care Time Critical Care Time Critical Care Time: Yes Total Critical Care Time: 35 Attestation: Due to the high probability of sudden and clinically significant deterioration in the patient's condition he/she required the highest level of my preparedness to intervene urgently I provided critical care time including documentation time, medication orders and management, reevaluation, vital sign assessment, ordering and reviewing of lab tests, ordering and reviewing of x-ray studies, and admission orders. Aggregate critical care time is 35 minutes including only time during which I was engaged in work directly related to his/her care and did not include time spent treating other patients simultaneously. Discharge Plan Discharge Chief Complaint: Weakness Clinical Impression: Acute kidney injury, Elevated troponin, Fractured pelvis Patient Disposition: Xfer Acute Care Hospital Time of Disposition Decision: 18:33 Discharge Location: [facility] Condition: Fair Mode of Transportation: EMS
[2025-03-12 16:57] LABS: Basophils Percent Auto 0.6 % (0.2-2.0); Eosinophils Absolute Auto 0.1 10^3/uL (0.0-0.7); Eosinophils Percent Auto 1.1 % (0.9-7.0); Hematocrit 37.2 % (36.0-48.0); Hemoglobin 12.3 g/dL (12.0-16.0); Immature Granulocytes Abs Auto 0.02 10^3/uL (0.00-0.03); Immature Granulocytes Pct Auto 0.3 % (0.0-0.5); Lymphocytes Absolute Auto 0.9 10^3/uL (1.2-3.8); Lymphocytes Percent Auto 12.4 % (20.5-60.0); Mean Corpuscular HGB Conc 33.1 g/dL (29.9-35.2); Mean Corpuscular Hemoglobin 29.1 pg (26.7-34.0); Mean Corpuscular Volume 87.9 fL (81.0-99.0); Mean Platelet Volume 10.1 fL (9.5-13.5); Monocytes Absolute Auto 0.6 10^3/uL (0.3-0.8); Neutrophils Absolute Auto 5.4 10^3/uL (1.4-6.5); Neutrophils Percent Auto 76.6 % (43.0-75.0); Platelet Count 251 10^3/uL (150-450); Red Blood Count 4.23 10^6/uL (4.20-5.40); Red Cell Distribution Width 16.3 % (11.0-15.0)
[2025-03-12 17:15] LABS: Anion Gap 14.8; BUN Creatinine Ratio 15.7; Calcium 9.7 mg/dL (8.5-10.1); Carbon Dioxide 25.4 mmol/L (21.0-32.0); Chloride 102 mmol/L (98-107); Estimated GFR (African America 20 (>=60 mL/min/1.73m^2); Estimated GFR (Non-African Ame 16 (>=60 mL/min/1.73m^2); Glucose 87 mg/dL (74-106); Potassium 4.2 mmol/L (3.5-5.1); Sodium 138 mmol/L (136-145)
[2025-03-12 17:19] LABS: Troponin I High Sensitivity 243.1 pg/mL (4.0-51.3)
[2025-03-12] MEDS: HYDRALAZINE HCL 20 MG/ML VIAL 10 MG IVP ×2 (17:41→18:40)
[2025-03-12 18:14] LABS: Troponin I High Sensitivity 324.4 pg/mL (4.0-51.3)
--- NOTE | 2025-03-12 18:35 | XR_ITS ---
[facility] [place] [id number] Patient Name: LUPE NGUYEN MRN: [id number] date: 1950 Sex: F Assigned Patient Location: ED.MAIN Current Patient Location: ED.MAIN Accession/Order Number: [id number] Exam Date: 03/12/2025 19:08 Report Date: 03/12/2025 19:09 At the request of: BARBY KAMARA MD Procedure: XR pelvis 1-2V AP PELVIS: CLINICAL HISTORY: fall COMPARISON: None FINDINGS: Postsurgical changes lumbosacral junction with pedicle screws and rods. Mild degenerative changes both hips. Mild spurring sacral joints. No fracture-dislocation 5. XR/XR pelvis 1-2V IMPRESSION: NO ACUTE BONY FINDINGS. Impression dictated by: Bam Long M.D. 03/12/2025 7:09 PM Dictation Location: [place] [address] Electronically authenticated by: [id number] Y Date: 03/12/2025 19:09
[2025-03-12] MEDS: 0.9 % SODIUM CHLORIDE 1,000 ML 125 ML IV (19:05)
[2025-03-12] MEDS: MORPHINE SULFATE 4 MG/ML VIAL IV (19:23)
[2025-03-12] MEDS: ONDANSETRON PF 4 MG/2 ML VIAL IV (19:23)
--- NOTE | 2025-03-12 19:28 | CT_ITS ---
[facility] [place] [id number] Patient Name: LUPE NGUYEN MRN: [id number] date: 1950 Sex: F Assigned Patient Location: ER Current Patient Location: ER Accession/Order Number: [id number] Exam Date: 03/12/2025 20:09 Report Date: 03/12/2025 20:15 At the request of: CARLYN NICOLE MD Procedure: CT pelvis wo con CT pelvis without contrast INDICATION: Fall/hip pain COMPARISON: X-ray pelvis and x-ray hip 03/12/2025 TECHNIQUE: Contiguous axial unenhanced images were obtained through the pelvis. This CT exam was performed using one or more following dose reduction techniques: Automated exposure control, adjustment of the mA and/or kV according to patient size, or use of iterative reconstruction technique. FINDINGS: No fracture or dislocation identified. No diastases of the sacroiliac joints or pubic symphysis. Mild enthesopathy formation identified both trochanteric regions. Iliac stent grafting noted. Otherwise moderate to severe plaque involving the aorta and iliac vessels as visualized. The postsurgical changes lumbosacral junction noted with multilevel discectomy and posterior fusion hardware noted. Soft tissue swelling overlying the right hip/trochanteric region noted likely related to contusion. CT/CT pelvis wo con IMPRESSION: Degenerative change. Negative acute osseous abnormality. Soft tissue contusion overlying right hip Impression dictated by: Bam Long M.D. 03/12/2025 8:15 PM Dictation Location: [place] [address] Electronically authenticated by: [id number] Y Date: 03/12/2025 20:15
[2025-03-12] MEDS: LABETALOL HCL 20 MG/4 ML SYRINGE IVP ×2 (19:55→23:17)
--- NOTE | 2025-03-12 20:00 | PC.NURSE ---
Labetolol 10 mg pushed slowly. BP down from 269/130 to 179/90. Holding other 10 mg for now. notified.
--- NOTE | 2025-03-12 20:03 | ED_ITS ---
HPI HPI - Fall General Chief Complaint: Weakness Stated Complaint: FALL Time Seen by Provider: 03/12/25 16:10 Source: patient Mode of arrival: Wheelchair Limitations: no limitations History of Present Illness HPI Narrative: This 74-year-old female was signed out to me at shift change pending transfer arrangements to [facility]. The patient had a fall yesterday. She stated that she was shaky. She is on Eliquis. She hit the right side of her head, her right shoulder and has right hip pain. According to the signout she has recently been in failing health with a 30 pound weight loss. Her p.o. intake has been poor. An EKG done upon arrival was a sinus tachycardia at 106 bpm. She has some nonspecific changes with no acute ST segment elevation or T wave inversion. Labs are reviewed. She has a normal white count and stable hemoglobin. Her BUN and creatinine are elevated from her baseline. She also has 2 positive troponins. The patient's blood pressure was markedly elevated upon arrival greater than 250 systolic. She was given 2 doses of 10 mg hydralazine but it was still markedly elevated upon my arrival. The patient was seen and examined. She states she is having right hip pain. The x- ray of her right hip showed a pubic ramus fracture and a pelvis x-ray was then ordered that did not show this fracture. I ordered a CT scan for confirmation purposes. CT scan of the brain is negative for acute findings. X-ray of the right shoulder is also negative. She was given IV fluids. She was medicated with 4 mg of IV morphine and 4 mg of IV Zofran for her pain. Due to her markedly elevated blood pressure she was given 20 mg of IV labetalol. Her blood pressure responded appropriately to this but remained in the 180s and she was given a dose of 0.1 mg p.o. clonidine. Patient's blood pressure rebounded from this and she was given a dose of 5 mg of oral Norvasc. She was refractory to this and was started on a nitro drip which was titrated. She remains otherwise awake alert and oriented. An additional IV dose of labetalol was given and her BP responded well and dropped to 185/86b prior to transfer This case was discussed with Dr. Knott at [facility] and she is accepted for transfer to the step down unit. CT scan of the pelvis is negative for acute fracture or dislocation. This is included in the body of this report. The [address] [address] [address] Scan Report Signed Patient: LUPE NGUYEN MR#: [id number] : 1950 Acct:[id number] Age/Sex: 74 / F ADM Date: 03/12/25 Loc: ER Attending Dr: Ordering Physician: Isabel Jones Date of Service: 03/12/25 Procedure(s): CT pelvis wo con Accession Number(s): [id number] cc: ROMARIO SORENSEN ~ The [place] [id number] Patient Name: LUPE NGUYEN MRN: [facility]:[id number] date: 1950 Sex: F Assigned Patient Location: ER Current Patient Location: ER Accession/Order Number: [id number] Exam Date: 03/12/2025 20:09 Report Date: 03/12/2025 20:15 At the request of: ISABEL JONES MD Procedure: CT pelvis wo con CT pelvis without contrast INDICATION: Fall/hip pain COMPARISON: X-ray pelvis and x-ray hip 03/12/2025 TECHNIQUE: Contiguous axial unenhanced images were obtained through the pelvis. This CT exam was performed using one or more following dose reduction techniques: Automated exposure control, adjustment of the mA and/or kV according to patient size, or use of iterative reconstruction technique. FINDINGS: No fracture or dislocation identified. No diastases of the sacroiliac joints or pubic symphysis. Mild enthesopathy formation identified both trochanteric regions. Iliac stent grafting noted. Otherwise moderate to severe plaque involving the aorta and iliac vessels as visualized. The postsurgical changes lumbosacral junction noted with multilevel discectomy and posterior fusion hardware noted. Soft tissue swelling overlying the right hip/trochanteric region noted likely related to contusion. CT/CT pelvis wo con IMPRESSION: Degenerative change. Negative acute osseous abnormality. Soft tissue contusion overlying right hip Impression dictated by: Bam Long M.D. 03/12/2025 8:15 PM Dictation Location: [place] [address] Electronically authenticated by: [id number] Y Date: 03/12/2025 20:15 Related Data Home Medications ?Medication ?Instructions ?Recorded ?Confirmed apixaban 2.5 mg tablet (Eliquis) 2.5 mg PO Q12H 03/12/25 duloxetine 30 mg capsule,delayed 30 mg PO QDAY 4 03/12/25 release ezetimibe 10 mg tablet 10 mg PO QDAY 09/18/2303/12 fenofibrate nanocrystallized 145 145 mg PO QDAY 03/12/25 mg tablet hydralazine 25 mg tablet 50 mg PO TID 09/18/23 isosorbide mononitrate 60 mg 60 mg PO QDAY 09/18/23 tablet,extended release 24 hr pantoprazole 40 mg tablet,delayed 40 mg PO QDAY 03/12/25 release valsartan 320 mg tablet 320 mg PO QDAY 09/18/2302/17 zolpidem 10 mg tablet 10 mg PO .QHS PRN sleep 10/1103/12/25 bupropion HCl 75 mg tablet 75 mg PO DAILY 03/12/25 nitroglycerin 0.4 mg sublingual 0.4 mg sublingual Q5M PRN chest 03/12/25 03/12/25 tablet pain Previous Rx's ?Medication ?Instructions ?Recorded metoprolol tartrate 75 mg tablet 75 mg PO BID #60 tabs 09/20/23 Allergies Allergy/AdvReac Type Severity Reaction Status Date / Time iodine Allergy Anaphylaxis Verified 09/18/23 20:23 Opioid HPI Opioid Management Most Recent Pain and Opioid Data: Last Pain Scale 9 Today, 19:23 Last NOV Pain Assessment Today, 19:23 [facility] Medical History (Updated 03/12/25 @ 20:46 by Isabel Jones MD) Chronic heart failure with preserved ejection fraction (HFpEF) ?I50.32 - Chronic diastolic (congestive) heart failure (ICD-10) Stage 3b chronic kidney disease (CKD) ?N18.32 - Chronic kidney disease, stage 3b (ICD-10) CAD (coronary artery disease) ?I25.10 - Atherosclerotic heart disease of [place] coronary artery without angina pectoris (ICD-10) History of pulmonary embolism ?Z86.711 - Personal history of pulmonary embolism (ICD-10) Hypertension ?I10 - Essential (primary) hypertension (ICD-10) PVD (peripheral vascular disease) ?I73.9 - Peripheral vascular disease, unspecified (ICD-10) High cholesterol ?E78.00 - Pure hypercholesterolemia, unspecified (ICD-10) DVT (deep venous thrombosis) ?I82.409 - Acute embolism and thrombosis of unspecified deep veins of unspecified lower extremity (ICD-10) Pulmonary air embolism ?T79.0XXA - Air embolism (traumatic), initial encounter (ICD-10) CHF (congestive heart failure) ?I50.9 - Heart failure, unspecified (ICD-10) 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 ?I70.201 - Unspecified atherosclerosis of [place] arteries of extremities, right leg (ICD-10) Stenosis of artery of left lower extremity ?I70.202 - Unspecified atherosclerosis of [place] arteries of extremities, left leg (ICD-10) Fibromyalgia ?M79.7 - Fibromyalgia (ICD-10) Osteoporosis ?M81.0 - Age-related osteoporosis without current pathological fracture (ICD- 10) Osteoarthritis ?M19.90 - Unspecified osteoarthritis, unspecified site (ICD-10) Heart attack ?I21.9 - Acute myocardial infarction, unspecified (ICD-10) Surgical History (Updated 09/19/23 @ 00:13 by Divya Mendoza) H/O colectomy ?Z90.49 - Acquired absence of other specified parts of digestive tract (ICD- 10) Family History (Updated 09/19/23 @ 00:15 by Divya Mendoza) Father Family history of myocardial infarction Family history of hypertension Mother Family history of myocardial infarction Family history of stroke Family history of hypertension Brother Family history of hypertension Family history of cancer Sister Family history of cancer Social History (Updated 09/19/23 @ 00:19 by Divya Mendoza) Smoking status: Current every day smoker Second hand tobacco smoke exposure: No Non-prescribed substance use: cannabis (any form) Previous occupational history: retired Known occupational exposures/hazards: No Highest level of school completed/degree received: some college, no degree Do you want help with school or training: No Are you now , , , , never or living with a partner: In a typical week, how many times do you talk on the telephone with family, friends, or neighbors: 3 or more times per week How often do you get together with friends or relatives: 3 or more times per week How often do you attend taoist or buddhism services: never Do you belong to any clubs or organizations such as taoist groups unions, fraternal or athletic groups, or school groups: no Total score: 1 Score interpretation: A score of less than or equal to 1 indicates the most socially isolated. Little interest or pleasure in doing things: not at all Feeling down, depressed, or hopeless: not at all Feel stressed/tense/nervous/anxious/difficulty sleeping: to some extent Life stressors: unknown source of stress Due to disability, difficulty making decisions: No Do you think of yourself as: straight/heterosexual Gender Identity: female Exam Constitutional Vital Signs, click to edit/add: Last Vital Signs Temp 98.3 F 03/12/25 16:08 Pulse 87 03/12/25 22:30 Resp 13 03/12/25 22:30 BP 232/123 H 03/12/25 22:30 Pulse Ox 97 03/12/25 22:30 O2 Del Method Room Air 03/12/25 16:08 Course Vital Signs Vital signs: Vital Signs Temperature 98.3 F 03/12/25 16:08 Pulse Rate 72 03/12/25 16:08 Respiratory Rate 18 03/12/25 16:08 Blood Pressure 270/130 H 03/12/25 16:08 Pulse Oximetry 97 03/12/25 16:08 Oxygen Delivery Method Room Air 03/12/25 16:08 Temperature 98.3 F 03/12/25 16:08 Pulse Rate 87 03/12/25 22:30 Respiratory Rate 13 03/12/25 22:30 Blood Pressure 232/123 H 03/12/25 22:30 Pulse Oximetry 97 03/12/25 22:30 Oxygen Delivery Method Room Air 03/12/25 16:08 - Fall Lab Data Labs: Lab Results 03/12/25 03/12/25 03/12/25 Range/Units 16:40 17:50 20:54 WBC 7.0 (4.0-11.0) 10^3/uL RBC 4.23 (4.20-5.40) 10^6/uL Hgb 12.3 (12.0-16.0) g/dL Hct 37.2 (36.0-48.0) % MCV 87.9 (81.0-99.0) fL MCH 29.1 (26.7-34.0) pg MCHC 33.1 (29.9-35.2) g/dL RDW 16.3 H (11.0-15.0) % Plt Count 251 (150-450) 10^3/uL MPV 10.1 (9.5-13.5) fL Neut % (Auto) 76.6 H (43.0-75.0) % Lymph % (Auto) 12.4 L (20.5-60.0) % [place] % (Auto) 9.0 (1.7-12.0) % Eos % (Auto) 1.1 (0.9-7.0) % Baso % (Auto) 0.6 (0.2-2.0) % Neut # (Auto) 5.4 (1.4-6.5) 10^3/uL Lymph # (Auto) 0.9 L (1.2-3.8) 10^3/uL [place] # (Auto) 0.6 (0.3-0.8) 10^3/uL Eos # (Auto) 0.1 (0.0-0.7) 10^3/uL Baso # (Auto) 0.0 (0.0-0.1) 10^3/uL Abs Immat Gran (auto) 0.02 (0.00-0.03) 10^3/uL Imm/Tot Granulo (auto) 0.3 (0.0-0.5) % Sodium 138 (136-145) mmol/L Potassium 4.2 (3.5-5.1) mmol/L Chloride 102 (98-107) mmol/L Carbon Dioxide 25.4 (21.0-32.0) mmol/L Anion Gap 14.8 BUN 45.0 H (7.0-18.0) mg/dL Creatinine 2.86 H (0.55-1.02) mg/dL Est GFR ( Amer) 20 L (>=60 mL/min/1.73m^2) Est GFR (Non-Af Amer) 16 L (>=60 mL/min/1.73m^2) BUN/Creatinine Ratio 15.7 Glucose 87 (74-106) mg/dL Calcium 9.7 (8.5-10.1) mg/dL Troponin I High Sens 243.1 H* 324.4 H* 419.7 H* (4.0-51.3) pg/mL Critical Care Time Critical Care Time Critical Care Time: Yes Total Critical Care Time: 35 Attestation: Due to this patient's presentation and persistently high blood pressure she was given multiple doses of IV antihypertensive medications including labetalol and a nitro drip. She was continually evaluated and reevaluated. She did not have any neurologic changes. Critical care time for this patient under my care is 35 minutes including time which I only spent managing her acute needs and did not manage other patients simultaneously. Discharge Plan Discharge Chief Complaint: Weakness Clinical Impression: Acute kidney injury, Elevated troponin, Hypertensive urgency, Contusion of hip, right Patient Disposition: [facility] Time of Disposition Decision: 18:33 Discharge Location: The [facility] Condition: Fair Mode of Transportation: EMS
--- NOTE | 2025-03-12 20:09 | PC.NURSE ---
BP back up to 200 SBP. Other 10 mg labetolol given.
--- NOTE | 2025-03-12 20:18 | PC.NURSE ---
Monitor respiratory rate reflects respirations in the 20's--respirations have in fact, not been over 16 bpm.
[2025-03-12] MEDS: CLONIDINE HCL 0.1 MG TABLET PO (20:28)
--- NOTE | 2025-03-12 21:07 | PC.NURSE ---
Second troponin drawn and sent.
[2025-03-12] MEDS: AMLODIPINE BESYLATE 5 MG TABLET PO (21:13)
[2025-03-12 21:16] LABS: Troponin I High Sensitivity 419.7 pg/mL (4.0-51.3)
[2025-03-12] MEDS: ACETAMINOPHEN 325 MG TABLET 650 MG PO (21:50)
--- NOTE | 2025-03-12 21:53 | PC.NURSE ---
BP continues to slowly climb up. aware. NTG gtt ordered.
[2025-03-12] MEDS: NITROGLYCERIN IN 5 % DEXTROSE 50 MG/250 ML INFUS..BTL IV (22:03)
--- NOTE | 2025-03-12 22:20 | PC.NURSE ---
Pt much improved on telemetry right after receiving labetolol. Remains in a NSR in the 80's without PVCs. No other ectopy observed.
--- NOTE | 2025-03-12 23:22 | PC.NURSE ---
Only 10 mg of Labetolol given. OK per DR Jones
--- NOTE | 2025-03-12 23:39 | PC.NURSE ---
All the 20 mg of labetolol given.
--- NOTE | 2025-03-12 23:43 | PC.NURSE ---
Report and update to [facility] crew.
--- NOTE | 2025-03-12 23:50 | PC.NURSE ---
Unable to obtain UA while here. Pt was incontinent of a large amount of urine prior to pure wick application. Not much more urine observed after that.
--- NOTE | 2025-03-13 | PC.NURSE ---
Report to Jerod CAZARES at [facility] at [phone].
== END 2025-03-12 23:46 | disposition short-term general hospital (02) ==
PROVIDERS: Emergency Medicine; Emergency Provider Emergency Medicine; PCP Internal Medicine
DX: N17.9 Acute kidney failure, unspecified (principal); S70.01XA Contusion of right hip, initial encounter; R79.89 Other specified abnormal findings of blood chemistry; I16.0 Hypertensive urgency; W19.XXXA Unspecified fall, initial encounter; Z79.01 Long term (current) use of 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; F17.200 Nicotine dependence, unspecified, uncomplicated; Z90.49 Acquired absence of other specified parts of digestive tract; S40.011A Contusion of right shoulder, initial encounter
CPT/HCPCS: 36415; 51702; 70450; 71045; 72170; 72192; 73030; 73502; 80048; 81001; 84484; 85025; 93005; 96374; 96375; 96376; 99285; J0360; J1920; J2270; J2305; J2405

== ENCOUNTER 2025-06-05 18:37 | Emergency (ER) | payer MEDICARE, SELFPAY ==
--- OUTSIDE RECORDS SUMMARY | 2025-06-05 18:45 | XMS_ITS | CCD ---
Author Organization [facility] Care Team Providers Care Intercell Connector Placer Name Role Phone DESIRAE, SHAKA H. Unavailable Unavailable MARISA VOGTEL B Unavailable Unavailable DESIRAE, SHAKA H. Unavailable Unavailable DESIRAE, SHAKA H. Unavailable Unavailable JACK VOGT B Unavailable Unavailable DESIRAE, SHAKA H. Unavailable Unavailable DESIRAE, SHAKA H. Unavailable Unavailable JACK VOGT Unavailable Unavailable THOMAS Vogt Primary Care Provider THOMAS Vogt Referring Provider Self, Referral Attending Provider Unavailable JACK VOGT Primary Care Physician JOHN LUTHER Attending Unavailable JOHN LUTHER Admitting Unavailable JOHN LUTHER Consulting Unavailable DR JACK VOGT Primary Care Unavailable JOHN LUTHER Attending Unavailable JOHN LUTHER Admitting Unavailable DR JACK VOGT Primary Care Unavailable AURORA, DR HENRY Mosley Consulting Unavailable JOHN LUTHER Consulting Unavailable JOHN LUTHER Attending Unavailable JOHN LUTHER Admitting Unavailable JOHN LUTHER Consulting Unavailable DR JACK VOGT Primary Care Unavailable JOHN LUTHER Attending Unavailable JOHN LUTHER Admitting Unavailable JOHN LUTHER Consulting Unavailable DR JACK VOGT Primary Care Unavailable RENETTA MONCADA Attending Unavailable RENETTA MONCADA Admitting Unavailable DR JACK VOGT Primary Care Unavailable RADHA, DR TONYA Moya Consulting Unavailable RENETTA MONCADA Consulting Unavailable ALFREDO CARDENAS Consulting Unavailable DR JACK VOGT Primary Care Unavailable ALFREDO CARDENAS Attending Unavailable ALFREDO CARDENAS Admitting Unavailable RYLAN HOPKINS Consulting Unavailable KRISHAN DODGEISSA Attending Unavailable KRISHAN DODGEISSA Admitting Unavailable DR JACK VOGT Primary Care Unavailable RADHA, DR TONYA Moya Consulting Unavailable CARLYN DODGE Consulting Unavailable ALFREDO CARDENAS Consulting Unavailable DR JACK VOGT Primary Care Unavailable ROSALEE CARDENASRICK Attending Unavailable CARDENAS, ALFREDO Admitting Unavailable WEST, DR HENRY Mosley Consulting Unavailable DAR, CARLYN Attending Unavailable DAR, CARLYN Admitting Unavailable DAR, CARLYN Consulting Unavailable VOGT, DR DOSS Primary Care Unavailable ZHOU, JOHN Attending Unavailable ZHOU, JOHN Admitting Unavailable VOGT, DR DOSS Primary Care Unavailable ZIEBER, DR TONYA Moya Consulting Unavailable ZHOU, JOHN Consulting Unavailable NEFCY, JERRICA Consulting Unavailable THOMAS Vogt Primary Care Provider [phone] MD Kevin Hamilton II Attending Provider [phone] Self, Referral Attending Provider Unavailable Jack Vogt MD Primary Care Provider [phone] Maria Luisa Thomson Attending Unavailable Alfredo CARDENAS Attending Unavailable CARDENAS, Alfredo R Attending Unavailable Orzech, Maria Luisa X Attending Unavailable Alfredo CARDENAS Attending Unavailable SIN, JACK Boudreaux Attending Unavailable SIN, JACK Boudreaux Attending Unavailable RENETTA MONCADA Attending Unavailable VOGT, JACK Boudreaux Attending Unavailable CURT, ERICKSON T Referring Unavailable CURT, ERICKSON T Referring Unavailable KATKOBARBY Referring Unavailable HORANI, ZAHIRA Admitting Unavailable CURT, ERICKSON T Attending Unavailable CURT, ERICKSON T Referring Unavailable CURT, ERICKSON T Referring Unavailable CURT, ERICKSON T Referring Unavailable LAURACARA Attending Unavailable MOUKARBELSACHIN Attending Unavailable CURT, ERICKSON T Referring Unavailable Jack Vogt II Primary Care Provider [phone] Sukumar BEAULIEU, Elsy Attending Provider Carolina TELLO, Sohail Willson Emergency Provider Rajiv Trejo MD Admit Provider Rajiv Trejo MD Attending Provider [phone] Nick Antonio MD Other Provider Kana Vazquez MD Other Provider Judy Espinosa MD Other Provider Estrella Velásquez MD Other Provider Andrew Arrington MD Attending Provider [phone] Andrew Arrington MD Other Provider Estefania Yoder APRN Other Provider [phone] Keith Koehler DO Other Provider [phone] Pilo Harry MD Other Provider Tony Monterroso Attending Unavailable Rajiv Trejo Admitting Unavailable Kana Vazquez Consulting Unavailable Jack Vogt Primary Care Unavailable Judy Espinosa Consulting Unavailable Estrella Velásquez Consulting Unavailable Andrew Arrington Consulting Unavailable Estefania Yoder Consulting Unavailable Keith Koehler Jr Consulting UnavailPilo Stephens Consulting Unavaila ble Allergies Allergy Classification Reported Allergen(s) Allergy Type Date of Onset Reaction(s) Facility Iodine (and Iodine containting drugs) (2 sources) Iodine; Translations: [Iodine] Drug Allergy 4 Eruption of skin (disorder) [facility] Pneumococcal vaccine (1 source) Pneumococcal vaccine Drug Allergy 4 Edema [facility] Shellfish (1 source) Shellfish; Translations: [shellfish] Food Allergy Unknown (qualifier value) [facility] varenicline (1 source) varenicline Drug Allergy 4 Vomiting [facility] (20 sources) Iodine; Translations: [Iodine] Drug Allergy 0 Eruption of skin (disorder) [facility] (5 sources) Pneumococcal vaccine; Translations: [pneumococcal vaccine] Drug Allergy 1 Edema [facility] (19 sources) varenicline; Translations: [VARENICLINE] Drug Allergy 1 Vomiting [facility] (6 sources) Eijphkh-AYO-HxX Reductase Inhibitor; Translations: [Zzphhld-EGU-PcH Reductase Inhibitor] Allergy to substance 1 Unknown Reaction [facility] (20 sources) HMG-CoA reductase inhibitor; Translations: [statins] Drug allergy 5 Unknown (qualifier value), Unknown [facility] (6 sources) Shellfish; Translations: [shellfish] Drug allergy Unknown (qualifier value) [facility] (2 sources) black walnut pollen extract; Translations: [JPXUJCR-XNF-UAS REDUCTASE INHIBITORS] Drug Allergy 0 [facility] (1 source) varenicline Drug Allergy 0 [facility] (1 source) Pneumovax 23 Drug allergy (disorder) 0 [facility] (17 sources) atorvastatin Drug Allergy 3 [facility] (17 sources) Lovastatin Allergy to substance 3 [facility] (17 sources) Pravastatin Drug Allergy 3 [facility] (17 sources) Simvastatin Allergy to substance 3 [facility] (17 sources) Pneumococcal Vac Polyvalent Drug Allergy 3 [facility] (14 sources) nickel sulfate; Translations: [NICKEL] Drug Allergy 8 Dermatitis [facility] (13 sources) Shellfish Propensity to adverse reactions 8 Anaphylaxis [facility] (13 sources) Other Allergy to substance 5 [facility] (1 source) Contrast media; Translations: [RED DYE] Propensity to adverse reactions to drug (disorder) 2 [facility] Repository (1 source) Pneumococcal vaccine; Translations: [PNEUMOCOCCAL 23-CRUZ PS VACCINE] Drug Allergy 1 [facility] Rep[facility] (1 source) Shellfish; Translations: [SHELLFISH DERIVED] Propensity to adverse reactions to drug (disorder) 8 [facility] Repository Medications Current Medications Medication Drug Class(es) Dates Sig (Normalized) Sig (Original) acetaminophen 325 mg / HYDROcodone bitartrate 5 mg oral tablet (11 sources) Opioid Agonist Start: 12-12-2024 End: 01-11-2025 take 1 tablet by mouth every six hours for pain HYDROcodone-acetami nophen ([place]) 5-325 MG tablet Indications: Spinal stenosis, lumbar region with neurogenic claudication Take 1 tablet by mouth every 6 (six) hours if needed for severe pain 60 tablet 12/12/2024 01/11/2025 Active Start: 09-26-2022 acetaminophen- hydrocodone 325 mg-5 mg oral tablet Refill(s) 0 Start Date: 09/26/22 Status: Ordered Start: 03-24-2021 End: 03-27-2021 take 1 tablet by mouth every six hours as needed for pain Hydrocodone-Acetaminophen 5-325 mg table t Discontinued 1 TAB PO Q6H as needed for Pain March 24, 2021 12:00am March 27, 2021 11:36am alendronic acid 70 mg oral tablet (1 source) Bisphosphonate Start: 09-26-2022 alendronate 70 mg Tab Refills(s) 0 Start Date: 09/26/22 Status: Ordered apixaban 2.5 mg oral tablet (20 sources) Factor Xa Inhibitor Start: 01-27-2025 take 1 tablet by mouth in the morning apixaban (Eliquis) 2.5 MG tablet Indications: Personal history of other venous thrombosis and embolism Take 1 tablet (2.5 mg) by mouth in the morning and 1 tablet (2.5 mg) before bedtime. 200 tablet 3 01/27/2025 Active Start: 12-27-2024 take 1 tablet by gloria th twice daily apixaban (Eliquis) 2.5 MG tablet Indications: Personal history of other venous thrombosis and embolism TAKE 1 TABLET BY MOUTH TWICE A DAY 180 tablet 1 12/27/2024 Active Start: 03-04-2022 take 1 tablet by gloria th twice daily apixaban (Eliquis) 2.5 MG tablet Indications: Personal history of other venous thrombosis and embolism TAKE 1 TABLET BY MOUTH TWICE A DAY 180 tablet 1 05/13/2024 Active Start: 03-24-2021 take 2.5 mg by mouth twice daily Start: 03-24-2021 take 1 tablet by gloria th twice daily Apixaban (Eliquis) 5 mg tablet Active 5 MG PO Twice daily March 24, 2021 12:00am On Hold: Resume on 03/31/21. Complies with drug therapy aspirin 81 mg delayed release oral tablet (20 sources) Platelet Aggregation Inhibitor, Nonsteroidal Anti-inflammatory Drug Start: 03-04-2022 take 1 mg by mouth once daily aspirin 81 mg Oral EC Tab mg tab(s), Oral, Daily, Refills(s) 0 Start Date: 03/04/22 Status: Ordered Start: 03-24-2021 take 1 tablet by gloria th once daily End: 02-25-2025 take 1 tablet by mouth once daily aspirin 81 MG chewable tablet take 1 by Oral route every day Oral 02/25/2025 Discontinued (Other) buPROPion hydrochloride 75 mg oral tablet (7 sources) Aminoketone Start: 02-25-2025 End: 04-26-2025 take 1 tablet by mouth at bedtime buPROPion (Wellbutrin) 75 MG tablet Indications: Depressive disorder TAKE 1 TABLET BY MOUTH IN THE MORNING AND BEFORE BEDTIME 180 tablet 1 03/20/2025 04/03/2025 Discontinued (Med list cleanup) carvedilol 25 mg oral tablet (20 sources) alpha-Adrenergic Genoveva, beta-Adrenergic Genoveva Start: 04-08-2025 take 1 tablet by mouth twice daily Start: 03-25-2025 take 1 tablet by gloria th in the morning carvedilol (Coreg) 25 MG tablet Indications: Benign essential hypertension Take 1 tablet (25 mg) by mouth in the morning and 1 tablet (25 mg) in the evening. Take with meals. 180 tablet 3 03/25/2025 Active Start: 02-22-2024 End: 02-25-2025 take 1 tablet by mouth in the morning carvedilol (Coreg) 25 MG tablet Indications: Benign essential hypertension (CMS/HCC) TAKE 1 TABLET BY MOUTH IN THE MORNING AND 1 TABLET IN THE EVENING. TAKE WITH MEALS. 180 tablet 3 10/22/2024 02/25/2025 Discontinued (Other) Start: 10-23-2023 carvedilol 12. 5 mg Tab Refills(s) 0 Start Date: 10/23/23 Status: Ordered cloNIDine hydrochloride 0.1 mg oral tablet (17 sources) Central alpha-2 Adrenergic Agonist Start: 03-20-2025 End: 07-18-2025 take 1 tablet by mouth three times daily Start: 02-22-2024 End: 02-21-2025 take 1 tablet by mouth in the morning cloNIDine (Catapres) 0.1 MG tablet Indications: Benign essential hypertension (CMS/HCC) Take 1 tablet (0.1 mg) by mouth in the morning and 1 tablet (0.1 mg) before bedtime. 60 tablet 11 02/22/2024 12/12/2024 Discontinued doxazosin 2 mg oral tablet (8 sources) alpha-Adrenergic Genoveva Start: 03-21-2025 End: 07-29-2025 take 1 tablet by mouth once daily DULoxetine 30 mg Cap-EC (5 sources) Start: 03-04-2022 DULoxetine 30 mg Cap-EC Refills(s) 0 Start Date: 03/04/22 Status: Ordered DULoxetine 60 mg Cap-EC (5 sources) Start: 03-04-2022 DULoxetine 60 mg Cap-EC Refills(s) 0 Start Date: 03/04/22 Status: Ordered escitalopram 5 mg oral tablet (8 sources) Serotonin Reuptake Inhibitor Start: 03-21-2025 End: 07-29-2025 take 1 tablet by mouth once daily ezetimibe 10 mg oral tablet (20 sources) Dietary Cholesterol Absorption Inhibitor Start: 03-24-2021 take 1 tablet by mouth once daily fenofibrate 145 mg oral tablet (20 sources) Peroxisome Proliferator Receptor alpha Agonist Start: 03-24-2021 take 1 tablet by mouth once daily furosemide 40 mg oral tablet (8 sources) Loop Diuretic Start: 04-11-2025 take 1 tablet by mouth twice daily Start: 03-24-2021 End: 04-08-2025 take 1 tablet by mouth once daily as needed Furosemide 40 mg tablet Discontinued 40 MG PO Daily as needed for swelling March 24, 2021 12:00am April 08, 2025 4:13pm hydrALAZINE hydrochloride 100 mg oral tablet (20 sources) Arteriolar Vasodilator Start: 03-31-2025 End: 03-31-2026 take 1 tablet by mouth three times daily Start: 02-22-2024 End: 02-21-2025 take 1 tablet by mouth in the morning, then take 1 tablet by mouth in the evening, then take 1 tablet by mouth at bedtime hydrALAZINE (Apresoline) 100 MG tablet Indications: Benign essential hypertension Take 1 tablet (100 mg) by mouth in the morning and 1 tablet (100 mg) in the evening and 1 tablet (100 mg) before bedtime. 90 tablet 11 02/22/2024 Active Start: 03-04-2022 hydrALAZINE 25 mg Tab Refills(s) 0 Start Date: 03/04/22 Status: Ordered melatonin 3 mg oral tablet (8 sources) Start: 03-20-2025 End: 04-19-2025 take 2 tablets by mouth once daily at bedtime Metoprolol (11 sources) beta-Adrenergic Genoveva Start: 03-04-2022 Metoprolol tartrate 50 mg Tab Refills(s) 0 Start Date: 03/04/22 Status: Ordered Start: 03-24-2021 End: 04-08-2025 take 1 tablet by mouth twice daily Metoprolol Tartrate 50 mg tablet Discontinued 50 MG PO Twice daily March 24, 2021 12:00am April 08, 2025 4:14pm minoxidil 2.5 mg oral tablet (1 source) Arteriolar Vasodilator Start: 04-11-2025 take 1 tablet by mouth twice daily 24 hr mirabegron 50 mg extended release oral tablet (1 source) beta3-Adrenergic Agonist Start: 11-18-2024 take 1 tablet by mouth once daily mirabegron 50 mg oral tablet, extended release 50 mg = 1 tab(s), Oral, Daily, # 30 tab(s), Refills(s) 11, Pharmacy: [facility]/pharmacy #[id number], 163, cm, 11/18/24 13:38:00 EST, Height/Length Dosing, 74.1, kg, 11/18/24 13:38:00 EST, Weight Dosing Start Date: 11/18/24 Status: Ordered NIFEdipine 90 mg osmotic 24 hr extended release oral tablet (19 sources) Dihydropyridine Calcium Channel Genoveva Start: 04-08-2025 take 1 tablet by mouth twice daily Start: 03-31-2025 take 1 tablet by gloria th every twenty-four hours in the morning NIFEdipine XL (Procardia XL) 90 MG 24 hr tablet Indications: Atherosclerosis of [place] coronary artery of [place] heart with stable angina pectoris Take 1 tablet (90 mg) by mouth in the morning and 1 tablet (90 mg) before bedtime. 180 tablet 3 03/31/2025 Active Start: 03-20-2025 take 1 tablet by gloria th every twenty-four hours in the morning NIFEdipine XL (Procardia XL) 90 MG 24 hr tablet Take 90 mg by mouth in the morning and 90 mg before bedtime. 03/20/2025 Active Start: 03-04-2022 NIFEdipine (Eq v-Procardia XL) 90 mg oral tablet, extended release Refills(s) 0 Start Date: 03/04/22 Status: Ordered Start: 03-24-2021 End: 04-08-2025 take 1 tablet by mouth once daily Nifedipine 90 mg tablet extended release 24hr Discontinued 90 MG PO Daily March 24, 2021 12:00am April 08, 2025 4:19pm nitroglycerin 0.4 mg sublingual tablet (20 sources) Nitrate Vasodilator Start: 03-20-2024 End: 03-20-2025 nitroglycerin (Nitrostat) 0.4 MG SL tablet Indications: Atherosclerosis of [place] coronary artery of [place] heart with stable angina pectoris Place 1 tablet (0.4 mg) under the tongue every 5 (five) minutes if needed for chest pain 90 tablet 12 03/20/2024 Active Start: 03-04-2022 nitroglycerin 0.4 mg SubL [place] mg spray(s), SubLingual, q5min, Refills(s) 0 Start Date: 03/04/22 Status: Ordered 24 hr oxybutynin chloride 10 mg extended release oral tablet (9 sources) Cholinergic Muscarinic Antagonist Start: 10-23-2023 End: 12-12-2024 take 1 tablet by mouth once daily oxybutynin 10 mg ER Tab 10 mg = 1 tab(s), Oral, Daily, # 90 tab(s), Refills(s) 3, Pharmacy: [facility]/pharmacy #[id number], 163, cm, 10/23/23 12:33:00 EST, Height/Length Dosing, 81.5, kg, 10/23/23 12:33:00 EST, Weight Dosing Start Date: 10/23/23 Status: Ordered pantoprazole 40 mg delayed release oral tablet (20 sources) Proton Pump Inhibitor Start: 04-11-2025 Start: 03-24-2021 End: 04-11-2025 take 1 tablet by mouth once daily Pantoprazole 40 mg tablet,delayed release (DR/EC) Discontinued 40 MG PO Daily March 24, 2021 12:00am April 11, 2025 11:57am sennosides, half-way 8.6 mg oral tablet (8 sources) Start: 03-20-2025 End: 07-18-2025 take 1 tablet by mouth once daily at bedtime traMADol hydrochloride 50 mg oral tablet (5 sources) Opioid Agonist Start: 03-24-2025 End: 06-22-2025 take 1 tablet by mouth every eight hours for pain traMADol (Ultram) 50 MG tablet Indications: Primary osteoarthritis of both knees Take 1 tablet (50 mg) by mouth every 8 (eight) hours if needed for severe pain 60 tablet 2 03/24/2025 06/22/2025 Active zolpidem tartrate 10 mg oral tablet (20 sources) gamma-Aminobut yric Acid-ergic Agonist Start: 04-08-2025 End: 04-11-2025 take 5 mg by mouth at bedtime as needed Start: 03-24-2025 End: 09-20-2025 zolpidem (Ambien) 5 MG table t Indications: Insomnia due to medical condition Take 1 tablet (5 mg) by mouth as needed at bedtime for sleep 30 tablet 5 03/24/2025 09/20/2025 Active Start: 03-24-2025 End: 03-24-2025 zolpidem (Ambien) 10 MG tabl et Indications: Insomnia due to medical condition Take 0.5 tablets (5 mg) by mouth as needed at bedtime for sleep 30 tablet 5 03/24/2025 03/24/2025 Discontinued (Reorder) Start: 03-24-2021 End: 04-08-2025 take 1 tablet by mouth at bedtime Zolpidem 10 mg tablet Discontinued 10 MG PO Bedtime March 24, 2021 12:00am April 08, 2025 4:19pm Completed/Discontinued Medications Medication Drug Class(es) Dates Sig (Normalized) Sig (Original) diclofenac sodium 0.01 mg/mg topical gel (7 sources) Nonsteroidal Anti-inflammatory Drug Start: 11-23-2023 End: 04-08-2025 Diclofenac Sodium 1 % gel Discontinued 2 GM TOPICAL as directed as needed for knee pain 10 17March 11, 2024 7:39am April 08, 2025 4:11pm Start: 11-23-2023 Diclofenac Sod ium Active 2 GM TOPICAL as directed 10 17November 23, 2023 1:00am DULoxetine 30 mg delayed release oral capsule (20 sources) Serotonin and Norepinephrine Reuptake Inhibitor Start: 12-27-2024 End: 03-24-2025 take 1 capsule by mouth once daily DULoxetine (Cymbalta) [address] capsule Indications: Depressive disorder Take 1 capsule (30 mg) by mouth Daily Take with 60 mg capsule 90 capsule 4 01/02/2025 03/24/2025 Discontinued Start: 12-27-2024 End: 03-24-2025 take 1 capsule by mouth once daily DULoxetine (Cymbalta) [address] capsule Indications: Anxiety Take 1 capsule (60 mg) by mouth Daily 90 capsule 01/02/2025 03/24/2025 Discontinued Start: 12-30-2023 take 1 capsule by mo [facility] once daily DULoxetine (Cymbalta) [address] capsule Indications: Depressive disorder (CMS/HCC) Take 1 capsule (30 mg) by mouth Daily Take with 60 mg capsule 100 capsule 3 12/30/2023 Active Start: 10-30-2023 End: 11-04-2024 take 1 capsule by mouth once daily DULoxetine (Cymbalta) [address] capsule Indications: Anxiety Take 1 capsule (60 mg) by mouth Daily 90 capsule 11/04/2024 Active Start: 03-04-2022 DULoxetine 30 mg Cap-EC Refills(s) 0 Start Date: 03/04/22 Status: Ordered Start: 03-04-2022 DULoxetine 60 mg Cap-EC Refills(s) 0 Start Date: 03/04/22 Status: Ordered Start: 03-24-2021 End: 04-08-2025 take 3 capsules by mouth at bedtime Duloxetine 30 mg capsule,delayed release(DR/EC) Discontinued 90 MG PO Bedtime March 24, 2021 12:00am April 08, 2025 4:12pm Start: 03-24-2021 take 90 mg by mouth at bedtime Duloxetine Active 90 MG PO Bedtime March 24, 2021 10:33pm 12 hr guaiFENesin 600 mg extended release oral tablet (5 sources) Start: 03-27-2021 End: 11-23-2023 take 2 tablets by mouth twice daily as needed for congestion, then take 1 tablet by mouth every twelve hours as needed for congestion Guaifenesin (Mucinex) 600 mg Tablet Extended Release 12hr Discontinued 1200 MG PO Twice daily as needed for congestion 0 March 27, 2021 12:00am November 23, 2023 3:26pm 24 hr isosorbide mononitrate 60 mg extended release oral tablet (20 sources) Nitrate Vasodilator Start: 03-24-2021 End: 04-08-2025 take 1 tablet by mouth once daily, then take 1 tablet by mouth every twenty-four hours Isosorbide Mononitrate 60 mg tablet extended release 24 hr Discontinued 60 MG PO Daily March 24, 2021 12:00am April 08, 2025 4:14pm meloxicam 15 mg oral tablet (20 sources) Nonsteroidal Anti-inflammatory Drug Start: 06-10-2024 End: 04-08-2025 take 1 tablet by mouth once daily Meloxicam 15 mg tablet Discontinued 0 .ROUTE .COMPLEX June 10, 2024 7:33am April 08, 2025 4:14pm TAKE 1 TABLET BY MOUTH EVERY DAY Start: 11-23-2023 End: 03-24-2025 take 1 tablet by mouth once daily Meloxicam 15 mg tablet Discontinued 15 MG PO daily March 11, 2024 7:39am June 10, 2024 7:34am ondansetron 4 mg oral film (2 sources) Serotonin-3 Receptor Antagonist Start: 03-24-2021 End: 03-27-2021 take 4 mg by mouth every eight hours Ondansetron Discontinued 4 MG PO Q8H March 24, 2021 10:38pm March 27, 2021 11:37am Start: 03-24-2021 End: 03-27-2021 take 4 mg by mouth every eight hours Ondansetron Discontinued 4 MG PO Q8H March 24, 2021 12:00am March 27, 2021 11:37am Ondansetron 4 mg Film (3 sources) Start: 03-24-2021 End: 03-27-2021 take 4 mg by mouth every eight hours as needed for nausea Ondansetron 4 mg Film Discontinued 4 MG PO Q8H as needed for Nausea March 24, 2021 12:00am March 27, 2021 11:37am pregabalin 75 mg oral capsule (20 sources) Start: 03-24-2021 End: 04-08-2025 take 1 capsule by mouth twice daily Pregabalin 75 mg capsule Discontinued 75 MG PO Twice daily March 24, 2021 12:00am April 08, 2025 4:15pm tiZANidine 4 mg oral tablet (20 sources) Central alpha-2 Adrenergic Agonist Start: 03-04-2022 End: 03-24-2025 take 1 tablet by mouth twice daily as needed tiZANidine (Zanaflex) 4 MG tablet Indications: Radiculopathy of lumbar region TAKE 1 TABLET BY MOUTH TWICE A DAY NEEDED 180 tablet 3 05/13/2024 03/24/2025 Discontinued valsartan 320 mg oral tablet (20 sources) Angiotensin 2 Receptor Genoveva Start: 03-24-2021 End: 04-08-2025 take 1 tablet by mouth once daily Valsartan 320 mg tablet Discontinued 320 MG PO Daily March 24, 2021 12:00am April 08, 2025 4:15pm Problems Active Problems Problem Classification Problem Date Documented Da te Episodic/Chronic Abdominal pain (19 sources) Generalized abdominal pain; Translations: [Generalized abdominal pain] Onset: 3 Resolved: 5 05-05-2023 Episodic Acute and unspecified renal failure (15 sources) Injury of kidney; Translations: [Acute kidney failure, unspecified] Onset: 5 03-27-2021 Episodic Acute myocardial infarction (6 sources) Myocardial infarction 06-28-2021 Chronic Administrative/social admission (2 sources) Patient encounter status; Translations: [Other specified counseling] 12-12-2024 Episodic Anxiety disorders (3 sources) Anxiety; Translations: [Anxiety disorder, unspecified] 11-03-2024 Chronic Aortic; peripheral; and visceral artery aneurysms (17 sources) Dissection of abdominal aorta; Translations: [Dissection of abdominal aorta] Onset: 3 05-05-2023 Chronic Cardiac dysrhythmias (17 sources) Tucker rhythm disorder; Translations: [Other specified cardiac arrhythmias] Onset: 3 05-05-2023 Chronic Chronic kidney disease (20 sources) Chronic kidney disease stage 3B ; Translations: [Stage 3b chronic kidney disease (HCC)] Onset: 4 10-04-2023 Chronic Chronic kidney disease (2 sources) Chronic kidney disease; Translations: [Chronic kidney disease, stage 3b] Onset: 3 Complication of device; implant or graft (18 sources) Atherosclerosis of coronary artery bypass graft(s) without angina pectoris; Translations: [Arteriosclerosis of autologous vein coronary artery bypass graft] Onset: 2 05-10-2023 Chronic Coronary atherosclerosis and other heart disease (20 sources) Atherosclerotic heart disease of [place] coronary artery without angina pectoris; Translations: [Coronary atherosclerosis] Onset: 2 Chronic Coronary atherosclerosis and other heart disease (20 sources) Patient post percutaneous transluminal coronary angioplasty; Translations: [Coronary angioplasty status] Onset: 2 05-05-2023 Episodic Deficiency and other anemia (17 sources) Anemia due to chronic blood loss; Translations: [Iron deficiency anemia secondary to blood loss (chronic)] Onset: 3 05-05-2023 Chronic Deficiency and other anemia (10 sources) Anemia; Translations: [Anemia, unspecified] 03-24-2021 Episodic Deficiency and other anemia (1 source) Anemia, unspecified; Translations: [Anemia, unspecified] Onset: 5 Episodic Diabetes mellitus without complication (2 sources) Type 2 diabetes mellitus 03-24-2025 Chronic Disorders of lipid metabolism (20 sources) Hyperlipidemia; Translations: [Mixed hyperlipidemia] Onset: 2 06-28-2021 Chronic Esophageal disorders (18 sources) Gastroesophageal reflux disease; Translations: [Gastro-esophageal reflux disease without esophagitis] Onset: 3 05-05-2023 Chronic Essential hypertension (20 sources) Hypertensive disorder; Translations: [Essential (primary) hypertension] Onset: 2 06-28-2021 Chronic Fluid and electrolyte disorders (5 sources) Hypervolemia; Translations: [Fluid overload, unspecified] Onset: 5 04-08-2025 Episodic Gastrointestinal hemorrhage (12 sources) Lower gastrointestinal hemorrhage; Translations: [Gastrointestinal hemorrhage, unspecified] Onset: 5 03-24-2021 Episodic Genitourinary symptoms and ill-defined conditions (7 sources) Urge incontinence; Translations: [Urge incontinence of urine] Onset: 4 Chronic Genitourinary symptoms and ill-defined conditions (20 sources) Proteinuria; Translations: [Proteinuria, unspecified] Onset: 3 05-05-2023 Episodic Heart valve disorders (3 sources) Nonrheumatic aortic (valve) insufficiency; Translations: [NONRHEUMATIC AORTIC INSUFFICIENCY] Onset: 2 Chronic Hypertension with complications and secondary hypertension (13 sources) Hypertensive renal disease; Translations: [Hypertensive chronic kidney disease with stage 1 through stage 4 chronic kidney disease, or unspecified chronic kidney disease] Onset: 5 04-08-2025 Chronic Malaise and fatigue (9 sources) Asthenia; Translations: [Weakness] Onset: 5 11-23-2023 Episodic Menopausal disorders (20 sources) Other primary ovarian failure; Translations: [Decreased estrogen level] Onset: 2 Chronic Mood disorders (20 sources) Depressive disorder; Translations: [Depressive disorder] Onset: 3 05-05-2023 Chronic Nonmalignant breast conditions (17 sources) Fibrocystic disease of breast; Translations: [Diffuse cystic mastopathy of unspecified breast] Onset: 3 05-05-2023 Chronic Occlusion or stenosis of precerebral arteries (18 sources) Occlusion and stenosis of bilateral carotid arteries; Translations: [Carotid artery occlusion] Onset: 3 05-05-2023 Chronic Osteoarthritis (20 sources) Primary gonarthrosis, bilateral; Translations: [Bilateral primary osteoarthritis of knee] Onset: 3 11-23-2023 Chronic Osteoporosis (20 sources) Osteoporosis; Translations: [Age-related osteoporosis without current pathological fracture] Onset: 2 09-26-2022 Chronic Other acquired deformities (2 sources) Spondylolisthesis, lumbar region; Translations: [Spondylolisthesis, lumbar region] Onset: 8 Episodic Other acquired deformities (1 source) Spondylolisthesis, lumbosacral region; Translations: [Spondylolisthesis, lumbosacral region] Onset: 8 Episodic Other aftercare (4 sources) Long-term current use of anticoagulant; Translations: [intermediate (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] Onset: 3 Episodic Other and ill-defined heart disease (6 sources) Heart disease 06-28-2021 Chronic Other circulatory disease (17 sources) Stricture of artery; Translations: [Stricture of artery] Onset: 3 05-05-2023 Chronic Other connective tissue disease (18 sources) Fibromyalgia; Translations: [Fibromyalgia] Onset: 3 05-05-2023 Episodic Other diseases of kidney and ureters (6 sources) Disorder of kidney and/or ureter; Translations: [Disorder of kidney and ureter, unspecified] Onset: 2 Episodic Other diseases of veins and lymphatics (4 sources) Lymphedema; Translations: [Lymphedema, not elsewhere classified] 11-23-2023 Chronic Other diseases of veins and lymphatics (1 source) Lymphedema, not elsewhere classified; Translations: [Other lymphedema] 11-23-2023 Chronic Other gastrointestinal disorders (17 sources) Irritable bowel syndrome; Translations: [Irritable bowel syndrome without diarrhea] Onset: 3 05-05-2023 Chronic Other gastrointestinal disorders (2 sources) Constipation, unspecified; Translations: [Constipation, unspecified] Onset: 5 Episodic Other lower respiratory disease (4 sources) Fibrosis of lung; Translations: [Pulmonary fibrosis, unspecified] 12-12-2024 Chronic Other non-traumatic joint disorders (4 sources) Pain in left knee; Translations: [Left knee pain] 11-22-2023 Episodic Other nutritional; endocrine; and metabolic disorders (17 sources) Obese class I; Translations: [Obesity (BMI 30.0-34.9)] Onset: 3 05-05-2023 Chronic Other nutritional; endocrine; and metabolic disorders (2 sources) Weight decreased; Translations: [Abnormal weight loss] 02-25-2025 Episodic Other skin disorders (2 sources) Loss of hair; Translations: [Nonscarring hair loss, unspecified] 02-25-2025 Episodic Peripheral and visceral atherosclerosis (20 sources) Peripheral vascular disease, unspecified; Translations: [Peripheral vascular disease, unspecified] Onset: 3 05-05-2023 Chronic Residual codes; unclassified (20 sources) Insomnia co-occurrent and due to medical condition; Translations: [Insomnia due to medical condition] Onset: 3 05-05-2023 Chronic Residual codes; unclassified (3 sources) Localized edema; Translations: [LOCALIZED EDEMA] Onset: 2 Episodic Residual codes; unclassified (4 sources) Poor oral hygiene; Translations: [Other specified personal risk factors, not elsewhere classified] 11-23-2023 Episodic Residual codes; unclassified (20 sources) Nicotine user; Translations: [Tobacco use] Onset: 9 11-23-2023 Episodic Residual codes; unclassified (1 source) Tobacco use; Translations: [Tobacco use disorder] 11-23-2023 Episodic Residual codes; unclassified (1 source) Other specified personal risk factors, not elsewhere classified; Translations: [Other specified disorders of the teeth and supporting structures] 11-23-2023 Episodic Residual codes; unclassified (20 sources) Localized edema; Translations: [Localized edema] Onset: 4 10-04-2023 Episodic Residual codes; unclassified (3 sources) Insomnia, unspecified; Translations: [Insomnia, unspecified] Onset: 3 Episodic Spondylosis; intervertebral disc disorders; other back problems (20 sources) Lumbar spondylosis; Translations: [Spondylosis without myelopathy or radiculopathy, lumbar region] Onset: 9 05-05-2023 Chronic Spondylosis; intervertebral disc disorders; other back problems (2 sources) Spondylosis; intervertebral disc disorders; other back problems; Translations: [L5-S1 RADICULOPATHY, SPONDYLOSIS] Onset: 8 Substance-related disorders (17 sources) Tobacco dependence syndrome; Translations: [Nicotine dependence, unspecified, uncomplicated] Onset: 3 05-05-2023 Chronic Thyroid disorders (19 sources) Thyroid nodule; Translations: [Nontoxic single thyroid nodule] Onset: 3 05-05-2023 Chronic Unclassified (5 sources) 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 09-26-2022 Unclassified (7 sources) Patient on antidepressant monitoring plan Onset: 5 02-25-2025 Unclassified (2 sources) Follow-up with GI if needed. The office will follow-up pathology for H. pylori. Unclassified (1 source) Follow-up with Nephrology as previously scheduled. Recommend closer follow-up, please call office on Monday to see if can get a closer appointment. Past or Other Problems Problem Classification Problem Date Documented Da te Episodic/Chronic Acquired foot deformities (17 sources) Left foot drop; Translations: [Foot drop, left foot] Onset: 05-05-2023 05-05-2023 Episodic Allergic reactions (20 sources) Allergy to seafood; Translations: [Allergy to seafood] Onset: 10-07-2019 05-05-2023 Episodic Coma; stupor; and brain damage (17 sources) Daytime somnolence; Translations: [Somnolence] Onset: 05-05-2023 05-05-2023 Episodic Diabetes mellitus with complications (20 sources) Renal disorder due to type 2 diabetes mellitus; Translations: [Type 2 diabetes mellitus with other diabetic kidney complication] Onset: 10-24-2019 Resolved: 03-20-2024 03-20-2024 Chronic Mood disorders (7 sources) Mood disorders Onset: 02-25-2025 02-25-2025 Nausea and vomiting (17 sources) Nausea and vomiting; Translations: [Nausea with vomiting, unspecified] Onset: 05-05-2023 05-05-2023 Episodic Nonspecific chest pain (17 sources) Chest pain; Translations: [Chest pain, unspecified] Onset: 05-23-2018 05-10-2023 Episodic Other acquired deformities (17 sources) Lumbar spondylolisthesis; Translations: [Spondylolisthesis, lumbar region] Onset: 05-05-2023 05-05-2023 Episodic Other aftercare (1 source) 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 heaterman (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; Translations: [LONG-TERM CURRNT USE ANTICOAGULANTS] Onset: 02-10-2022 Episodic Other aftercare (17 sources) 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; Translations: [oil heaterman (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] Onset: 01-04-2023 05-10-2023 Episodic Other connective tissue disease (3 sources) Pain in leg, unspecified; Translations: [PAIN IN LEG UNSPECIFIED] Onset: 02-16-2022 Episodic Other connective tissue disease (1 source) Pain in left leg; Translations: [PAIN IN LEFT LEG] Onset: 02-25-2022 Episodic Other connective tissue disease (1 source) Pain in right leg; Translations: [PAIN IN RIGHT LEG] Onset: 02-25-2022 Episodic Other connective tissue disease (17 sources) Muscle pain; Translations: [Myalgia, unspecified site] Onset: 05-05-2023 05-05-2023 Episodic Other connective tissue disease (17 sources) Fibromyositis; Translations: [Fibromyalgia] Onset: 05-23-2018 05-10-2023 Episodic Other connective tissue disease (17 sources) Neurogenic claudication; Translations: [Other symptoms and signs involving the nervous system] Onset: 03-08-2018 05-10-2023 Episodic Other connective tissue disease (1 source) Fibromyalgia; Translations: [Fibromyalgia] Onset: 01-04-2023 Episodic Other diseases of kidney and ureters (20 sources) Kidney lesion; Translations: [Disorder of kidney and ureter, unspecified] Onset: 05-10-2023 06-28-2021 Episodic Other diseases of kidney and ureters (4 sources) Disorder of kidney and ureter, unspecified; Translations: [DISORDER KIDNEY AND URETER UNS] Onset: 08-29-2022 Episodic Other diseases of veins and lymphatics (17 sources) Peripheral venous insufficiency; Translations: [Venous insufficiency (chronic) (peripheral)] Onset: 05-05-2023 05-05-2023 Episodic Other lower respiratory disease (5 sources) Shortness of breath; Translations: [SHORTNESS OF BREATH] Onset: 01-31-2022 Episodic Other screening for suspected conditions (not mental disorders or infectious disease) (17 sources) Cardiovascular stress test abnormal; Translations: [Abnormal result of other cardiovascular function study] Onset: 05-23-2018 05-10-2023 Episodic Other upper respiratory infections (17 sources) Sinusitis; Translations: [Chronic sinusitis, unspecified] Onset: 04-30-2020 Resolved: 04-03-2025 05-10-2023 Chronic Phlebitis; thrombophlebitis and thromboembolism (19 sources) History of thromboembolism of vein; Translations: [Personal history of other venous thrombosis and embolism] Onset: 03-31-2021 05-10-2023 Episodic Pulmonary heart disease (20 sources) Personal history of pulmonary embolism; Translations: [Infarction of lung due to embolus] Onset: 05-17-2021 05-05-2023 Episodic Residual codes; unclassified (17 sources) Other specified health status; Translations: [Other drug allergy] Onset: 05-05-2023 05-05-2023 Episodic Spondylosis; intervertebral disc disorders; other back problems (20 sources) Spinal stenosis of lumbar region; Translations: [Spinal stenosis, lumbar region with neurogenic claudication] Onset: 05-05-2023 05-05-2023 Episodic Results Test Name Value Interpretation Reference Range Facility Basic Metabolic Panelon 03-19 Anion gap [Moles/Vol] 10.5 mmol/L Normal 6.0-15.0 [facility] Comment on above: Performed By: #### B MP, CBC ####[place] [id number] [address] Calcium [Mass/Vol] 8.5 mg/dL Low 8.6-10.3 [facility] Comment on above: Performed By: #### B MP, CBC ####[address] Chloride [Moles/Vol] 103 mmol/L Normal 98-107 [facility] Comment on above: Performed By: #### B MP, CBC ####[address] CO2 [Moles/Vol] 27.0 mmol/L Normal 21.0-31.0 [facility] Comment on above: Performed By: #### B MP, CBC ####[address] Creatinine [Mass/Vol] 4.15 mg/dL High 0.60-1.20 [facility] Comment on above: Performed By: #### B MP, CBC ####[address] Creatinine Clr Calc Pharmacy 10.14 Normal [facility] Comment on above: Result Comment: PERF ORMED BY: [facility] [address] [place] [address] PATHOLOGIST [employer] WORKER ELIZABETH MOREL M.D. Performed By: #### B GERRI, CBC ####[address] GFR/1.73 sq M.predicted MDRD (S/P/Bld) [Vol rate/Area] 10.650 mL/min/{1.73_m2} Normal [facility] Comment on above: Performed By: #### B MP, CBC ####[address] Glucose [Mass/Vol] 136 mg/dL High 70-100 [facility] Comment on above: Result Comment: [place] Glucose Reference Range is dependent on time and content of last meal. Glucose of more than 200 mg/dL in a nonstressed, ambulatory subject supports the diagnosis of Diabetes Mellitus. ADA recommended reference range Performed By: #### B MP, CBC ####[address] Potassium [Moles/Vol] 3.5 mmol/L Normal 3.5-5.1 [facility] Comment on above: Performed By: #### B MP, CBC ####[address] Sodium [Moles/Vol] 137 mmol/L Normal 136-145 [facility] Comment on above: Performed By: #### B MP, CBC ####[address] Urea nitrogen [Mass/Vol] 61 mg/dL High 7-25 [facility] Comment on above: Performed By: #### B MP, CBC ####[address] Complete Blood Count Auto Di ffon 04-11-2025 Basophils (Bld) [#/Vol] 0.0 10*3/uL Normal 0.0-0.2 [facility] Comment on above: Result Comment: PERF ORMED BY: [facility] [address] [facility] [place] [address] PATHOLOGIST [employer] WORKER ELIZABETH MOREL M.D. Performed By: #### B MP, CBC ####[address] Basophils/100 WBC (Bld) 0.7 % Normal . [facility] Comment on above: Performed By: #### B MP, CBC ####[address] Eosinophils (Bld) [#/Vol] 0.2 10*3/uL Normal 0.0-0.45 [facility] Comment on above: Performed By: #### B MP, CBC ####[address] Eosinophils/100 WBC (Bld) 3.3 % Normal . [facility] Comment on above: Performed By: #### B MP, CBC ####[address] Erythrocyte distribution width (RBC) [Ratio] 16.4 % High 11.9-15.3 [facility] Comment on above: Performed By: #### B MP, CBC ####[address] Hematocrit (Bld) [Volume fraction] 27.2 % Low 34.0-46.4 [facility] Comment on above: Performed By: #### B MP, CBC ####[address] Hemoglobin (Bld) [Mass/Vol] 9.0 g/dL Low 11.8-15.4 [facility] Comment on above: Performed By: #### B MP, CBC ####[address] Lymphocytes (Bld) [#/Vol] 0.8 10*3/uL Low 1.00-4.8 [facility] Comment on above: Performed By: #### B MP, CBC ####[address] Lymphocytes/100 WBC (Bld) 14.9 % Normal . [facility] Comment on above: Performed By: #### B MP, CBC ####[address] MCH (RBC) [Entitic mass] 29.1 pg Normal 24.7-34.3 [facility] Comment on above: Performed By: #### B MP, CBC ####[address] MCV (RBC) [Entitic vol] 88.3 fL Normal 80-100 [facility] Comment on above: Performed By: #### B MP, CBC ####[address] Mean Corpuscular HGB Conc 33.0 g/dL Normal 32.0-35.0 [facility] Comment on above: Performed By: #### B MP, CBC ####[address] Monocytes (Bld) [#/Vol] 0.5 10*3/uL Normal 0.0-0.8 [facility] Comment on above: Performed By: #### B MP, CBC ####[place] [id number] [facility] Monocytes/100 WBC (Bld) 9.1 % Normal . [facility] Comment on above: Performed By: #### B MP, CBC ####[address] Neutrophils (Bld) [#/Vol] 4.0 10*3/uL Normal 1.8-7.7 [facility] Comment on above: Performed By: #### B MP, CBC ####[address] Neutrophils/100 WBC (Bld) 72.0 % Normal . [facility] Comment on above: Performed By: #### B MP, CBC ####[address] NRBC% 0.1 /100{WBC} Normal 0-0.5 [facility] Comment on above: Performed By: #### B MP, CBC ####[address] Platelet mean volume (Bld) [Entitic vol] 9.3 fL Normal 6.3-10.7 [facility] Comment on above: Performed By: #### B MP, CBC ####[place] [id number] [facility] Platelets (Bld) [#/Vol] 176 10*3/uL Normal 150-450 [facility] Comment on above: Performed By: #### B MP, CBC ####[address] RBC (Bld) [#/Vol] 3.09 10*6/uL Low 3.60-5.00 [facility] Comment on above: Performed By: #### B MP, CBC ####[facility] [id number] WBC (Bld) [#/Vol] 5.6 10*3/uL Normal 3.8-11.6 [facility] Comment on above: Performed By: #### B MP, CBC ####[facility] [place] [address] White Blood Count 5.6 [CFU]/mL Normal 3.8-11.6 [facility] Comment on above: Performed By: #### B MP, CBC ####[address] Basic Metabolic Panelon 07-2 Anion gap [Moles/Vol] 12.2 mmol/L Normal 6.0-15.0 [facility] e [facility] Comment on above: Performed By: #### B MP #### [address] Calcium [Mass/Vol] 8.4 mg/dL Low 8.6-10.3 [facility] Comment on above: Performed By: #### B MP #### [address] Chloride [Moles/Vol] 106 mmol/L Normal 98-107 [facility] Comment on above: Performed By: #### B MP #### [address] CO2 [Moles/Vol] 25.2 mmol/L Normal 21.0-31.0 [facility] Comment on above: Performed By: #### B MP #### [facility] [address] Creatinine [Mass/Vol] 3.69 mg/dL High 0.60-1.20 [facility] Comment on above: Performed By: #### B MP #### [facility] [address] Creatinine Clr Calc Pharmacy 11.26 Normal [facility] Comment on above: Result Comment: PERF ORMED BY: [place] [address] PATHOLOGIST [employer] WORKER ELIZABETH MOREL M.D. Performed By: #### B MP #### [place] [address] [place] GFR/1.73 sq M.predicted MDRD (S/P/Bld) [Vol rate/Area] 12.263 mL/min/{1.73_m2} Normal [facility] Comment on above: Performed By: #### B MP #### [address] Glucose [Mass/Vol] 79 mg/dL Normal 70-100 [facility] Comment on above: Result Comment: [facility] Glucose Reference Range is dependent on time and content of last meal. Glucose of more than 200 mg/dL in a nonstressed, ambulatory subject supports the diagnosis of Diabetes Mellitus. ADA recommended reference range Performed By: #### B MP #### [address] Potassium [Moles/Vol] 3.4 mmol/L Low 3.5-5.1 [facility] Comment on above: Performed By: #### B MP #### [facility] [address] Sodium [Moles/Vol] 140 mmol/L Normal 136-145 [facility] Comment on above: Performed By: #### B MP #### [place] [address] [place] Urea nitrogen [Mass/Vol] 62 mg/dL High 7-25 [facility] Comment on above: Performed By: #### B MP #### [place] [address] [place] Creatinine, Urine (Random)on 04-10-2025 Creatinine, Urine (Random) 61.00 mg/dL Normal [facility] Comment on above: Result Comment: No r eference range established Performed By: #### U CREA, URTP ####[facility] Pathology Request for Lab Co rpon 04-10-2025 Pathology Request for Lab Carla Normal [facility] Comment on above: Order Comment: GI SP ECIMEN Result Comment: See report. Scanned copy available in EMR. PERFORMED BY: [place] [address] PATHOLOGIST W[employer]BOARD WORKER ELIZABETH MOREL M.D. Performed By: #### P ATH TO [facility] ####[place] [id number] [facility] Total Protein, Urineon 04-10 Protein (U) [Mass/Vol] 67 mg/dL High 0-9 [facility] e [facility] Comment on above: Result Comment: PERF ORMED BY: [facility] [address] [place] [address] PATHOLOGIST W[employer] WORKER ELIZABETH MOREL M.D. Performed By: #### U CREA, URTP ####[address] Complete Blood Count Auto Di ffon 04-09-2025 Basophils (Bld) [#/Vol] 0.0 10*3/uL Normal 0.0-0.2 [facility] Comment on above: Result Comment: PERF ORMED BY: [place] [address] PATHOLOGIST W[employer]BO[employer] WORKER ELIZABETH MOREL M.D. Performed By: #### M G, PT, CMP, PHOS, CBC, PTT ####[address] Basophils/100 WBC (Bld) 1.0 % Normal . [facility] Comment on above: Performed By: #### M G, PT, CMP, PHOS, CBC, PTT ####[place] [id number] [place] Eosinophils (Bld) [#/Vol] 0.2 10*3/uL Normal 0.0-0.45 [facility] Comment on above: Performed By: #### M G, PT, CMP, PHOS, CBC, PTT ####[place] [id number] [place] Eosinophils/100 WBC (Bld) 4.2 % Normal . [facility] Comment on above: Performed By: #### M G, PT, CMP, PHOS, CBC, PTT ####[address] Erythrocyte distribution width (RBC) [Ratio] 16.3 % High 11.9-15.3 [facility] Comment on above: Performed By: #### M G, PT, CMP, PHOS, CBC, PTT ####[address] Hematocrit (Bld) [Volume fraction] 24.8 % Low 34.0-46.4 [facility] Comment on above: Performed By: #### M G, PT, CMP, PHOS, CBC, PTT ####[address] Hemoglobin (Bld) [Mass/Vol] 8.4 g/dL Low 11.8-15.4 [facility] Comment on above: Performed By: #### M G, PT, CMP, PHOS, CBC, PTT ####[address] Lymphocytes (Bld) [#/Vol] 1.2 10*3/uL Normal 1.00-4.8 [facility] Comment on above: Performed By: #### M G, PT, CMP, PHOS, CBC, PTT ####[address] Lymphocytes/100 WBC (Bld) 29.3 % Normal . [facility] Comment on above: Performed By: #### M G, PT, CMP, PHOS, CBC, PTT ####[address] MCH (RBC) [Entitic mass] 29.7 pg Normal 24.7-34.3 [facility] Comment on above: Performed By: #### M G, PT, CMP, PHOS, CBC, PTT ####[address] MCV (RBC) [Entitic vol] 88.2 fL Normal 80-100 [facility] Comment on above: Performed By: #### M G, PT, CMP, PHOS, CBC, PTT ####[address] Mean Corpuscular HGB Conc 33.7 g/dL Normal 32.0-35.0 [facility] Comment on above: Performed By: #### M G, PT, CMP, PHOS, CBC, PTT ####[address] Monocytes (Bld) [#/Vol] 0.5 10*3/uL Normal 0.0-0.8 [facility] Comment on above: Performed By: #### M G, PT, CMP, PHOS, CBC, PTT ####[address] Monocytes/100 WBC (Bld) 12.9 % Normal . [facility] Comment on above: Performed By: #### M G, PT, CMP, PHOS, CBC, PTT ####[address] Neutrophils (Bld) [#/Vol] 2.1 10*3/uL Normal 1.8-7.7 [facility] Comment on above: Performed By: #### M G, PT, CMP, PHOS, CBC, PTT ####[address] Neutrophils/100 WBC (Bld) 52.6 % Normal . [facility] Comment on above: Performed By: #### M G, PT, CMP, PHOS, CBC, PTT ####[address] NRBC% 0.1 /100{WBC} Normal 0-0.5 [facility] Comment on above: Performed By: #### M G, PT, CMP, PHOS, CBC, PTT ####[address] Platelet mean volume (Bld) [Entitic vol] 9.2 fL Normal 6.3-10.7 [facility] Comment on above: Performed By: #### M G, PT, CMP, PHOS, CBC, PTT ####[address] Platelets (Bld) [#/Vol] 188 10*3/uL Normal 150-450 [facility] Comment on above: Performed By: #### M G, PT, CMP, PHOS, CBC, PTT ####[address] RBC (Bld) [#/Vol] 2.81 10*6/uL Low 3.60-5.00 [facility] Comment on above: Performed By: #### M G, PT, CMP, PHOS, CBC, PTT ####[address] WBC (Bld) [#/Vol] 4.1 10*3/uL Normal 3.8-11.6 [facility] Comment on above: Performed By: #### M G, PT, CMP, PHOS, CBC, PTT ####[address] White Blood Count 4.1 [CFU]/mL Normal 3.8-11.6 [facility] Comment on above: Performed By: #### M G, PT, CMP, PHOS, CBC, PTT ####[address] Comprehensive Metabolic Pane cathleen 04-09-2025 Albumin [Mass/Vol] 3.3 g/dL Low 3.5-5.7 [facility] Comment on above: Performed By: #### M G, PT, CMP, PHOS, CBC, PTT ####[address] Albumin/Globulin [Mass ratio] 1.4 {ratio} Normal [facility] Comment on above: Performed By: #### M G, PT, CMP, PHOS, CBC, PTT ####[address] ALP [Catalytic activity/Vol] 29 U/L Low 34-104 [facility] Comment on above: Performed By: #### M G, PT, CMP, PHOS, CBC, PTT ####[address] ALT [Catalytic activity/Vol] 4 U/L Low 7-52 [facility] Comment on above: Performed By: #### M G, PT, CMP, PHOS, CBC, PTT ####[address] Anion gap [Moles/Vol] 11.2 mmol/L Normal 6.0-15.0 [facility] Comment on above: Performed By: #### M G, PT, CMP, PHOS, CBC, PTT ####[address] AST [Catalytic activity/Vol] 17 U/L Normal 13-39 [facility] Comment on above: Performed By: #### M G, PT, CMP, PHOS, CBC, PTT ####[address] Bilirubin [Mass/Vol] 0.5 mg/dL Normal 0.3-1.0 [facility] Comment on above: Performed By: #### M G, PT, CMP, PHOS, CBC, PTT ####[address] Calcium [Mass/Vol] 8.2 mg/dL Low 8.6-10.3 [facility] Comment on above: Performed By: #### M G, PT, CMP, PHOS, CBC, PTT ####[address] Chloride [Moles/Vol] 105 mmol/L Normal 98-107 [facility] Comment on above: Performed By: #### M G, PT, CMP, PHOS, CBC, PTT ####[address] CO2 [Moles/Vol] 26.6 mmol/L Normal 21.0-31.0 [facility] Comment on above: Performed By: #### M G, PT, CMP, PHOS, CBC, PTT ####[address] Creatinine [Mass/Vol] 3.53 mg/dL High 0.60-1.20 [facility] Comment on above: Performed By: #### M G, PT, CMP, PHOS, CBC, PTT ####[address] Creatinine Clr Calc Pharmacy 11.77 Normal [facility] Comment on above: Performed By: #### M G, PT, CMP, PHOS, CBC, PTT ####[address] GFR/1.73 sq M.predicted MDRD (S/P/Bld) [Vol rate/Area] 12.933 mL/min/{1.73_m2} Normal [facility] Comment on above: Performed By: #### M G, PT, CMP, PHOS, CBC, PTT ####[address] Globulin (S) [Mass/Vol] 2.4 g/dL Normal [facility] Comment on above: Performed By: #### M G, PT, CMP, PHOS, CBC, PTT ####[address] Glucose [Mass/Vol] 77 mg/dL Normal 70-100 [facility] Comment on above: Result Comment: [place] Glucose Reference Range is dependent on time and content of last meal. Glucose of more than 200 mg/dL in a nonstressed, ambulatory subject supports the diagnosis of Diabetes Mellitus. ADA recommended reference range Performed By: #### M G, PT, CMP, PHOS, CBC, PTT ####[address] Potassium [Moles/Vol] 3.8 mmol/L Normal 3.5-5.1 [facility] Comment on above: Performed By: #### M G, PT, CMP, PHOS, CBC, PTT ####[facility] [id number] [place] [address] [facility] Protein [Mass/Vol] 5.7 g/dL Low 6.4-8.9 [facility] Comment on above: Performed By: #### M G, PT, CMP, PHOS, CBC, PTT ####[place] [address] [place] [id number] [facility] Sodium [Moles/Vol] 139 mmol/L Normal 136-145 [facility] Comment on above: Performed By: #### M G, PT, CMP, PHOS, CBC, PTT ####[place] [address] [place] [id number] [facility] Urea nitrogen [Mass/Vol] 64 mg/dL High 7-25 [facility] Comment on above: Performed By: #### M G, PT, CMP, PHOS, CBC, PTT ####[facility] [place] [address] [facility] ECH echo transthoracicon ECH echo transthoracic [facility] [place] [address] Echocardiogram Signed Patient: Marleni Dennis MR#: [id number] : 1950 Acct:[id number] Age/Sex: 74 / F ADM Date: 04/08/25 Loc: Room: [address] [place] [address] Type: ADM IN Attending Dr: Nick Antonio MD Ordering Provider: Rajiv Trejo MD Date of Service: 04/08/25 ECH/ECH echo transthoracic: fluid overalod, fr/o chf Copies to: MD Rajiv Hummel MD Height: 61 in Weight: 140 lb Performed By: Kristopher Betancourt RDCS, T BSA: 1.6 m2 BP: 147/68 mmHg HR: 61 Reason For Study: fluid overalod, fr/o chf History: PVD HLD HTN CKD CAD Interpretation Summary Moderate concentric left ventricular hypertrophy. Ejection Fraction = 55-60%. The left atrium appears severely dilated. The right atrium is moderately dilated. The right ventricle is mildly dilated. Mild aortic regurgitation. There is mild mitral regurgitation. There is mild tricuspid regurgitation. Right ventricular systolic pressure is elevated at 30-40mmHg. Right ventricular systolic pressure is consistent with mild pulmonary hypertension. Color-flow Doppler across the interatrial septum suggestive of PFO/secundum ASD There is no comparison study available. Procedure/Quality: A two-dimensional transthoracic echocardiogram with color flow, Doppler and injection of contrast agent Definity was performed. A two- dimensional transthoracic echocardiogram with color flow, Doppler and injection of aggitated saline was performed. A two-dimensional transthoracic echocardiogram with color flow and Doppler was performed. Left Ventricle: The left ventricular size is normal. Moderate concentric left ventricular hypertrophy. Ejection Fraction = 55-60%. A variety of Doppler measurements indicate normal left ventricular diastolic function. The left ventricular wall motion is normal. Left Atrium: The left atrium appears severely dilated. Color-flow Doppler across the interatrial septum suggestive of PFO/secundum ASD. Right Atrium: The right atrium is moderately dilated. Right Ventricle: The right ventricle is mildly dilated. The right ventricular systolic function is normal. Aortic Valve: The aortic valve is mildly calcified. Mild aortic regurgitation. Mitral Valve: The mitral valve is mildly sclerotic. There is mild mitral regurgitation. Tricuspid Valve: The tricuspid valve is normal in structure and function. There is mild tricuspid regurgitation. Right ventricular systolic pressure is elevated at 30-40mmHg. Right ventricular systolic pressure is consistent with mild pulmonary hypertension. Pulmonic Valve: The pulmonic valve is normal in structure and function. Arteries: The aortic root is normal size. Pericardium/Pleura: No pericardial effusion seen. There is no pleural effusion. IVC/Hepatic Veins: The inferior vena cava is normal in size, with a normal collapsibility index. Measurements with Normals IVSd: 1.4 cm (0.7-1.1 cm)LVIDd: 4.5 cm (3.7-5.4 cm) LVPWd: 1.4 cm (0.7-1.1 cm)LVIDs: 3.3 cm (2.3-3.6 cm) LA dimension: 6.2 cm (2.3-4.0 cm)Ao root diam: 3.4 cm(2.0-3.6 cm) asc Aorta Diam: 3.1 cm(2.1-3.4cm) Doppler with Normals RVSP(TR): 36.9 mmHg (18-35mmHg) LV V1 max: 79.6 cm/sec (0.7-1.7m/s)MV E max terry: 109.0 cm/sec(0.8-1.3m/s) MV A max terry: 78.6 cm/sec(0.0-0.0m/s) MV E/A: 1.4 (<1.5) MMode/2D Measurements Calculations TAPSE: 0.88 cm RV Base: 4.4 cm FS: 26.7 % Ao root area: RV S Terry: RV Mid: 3.6 cm EDV(Teich): 92.4 ml 9.1 cm2 8.4 cm/sec RV Length: 7.0 cm ESV(Teich): 44.1 ml EF(Teich): 52.3 % __ LVOT diam: 2.1 cm LVLd ap4: 7.5 cm SV(MOD-sp4): 107.7 ml LAV(MOD-sp4): LVOT area: 3.5 cm2 EDV(MOD-sp4): 86.8 ml 140.0 ml LAV(MOD-sp2): LVLs ap4: 5.8 cm 115.0 ml ESV(MOD-sp4): 32.3 ml EF(MOD-sp4): 76.9 % __ LA A2 area: RA Volume: RA Volume Index: 29.1 cm2 67.2 ml 41.2 ml/m2 LA A4 area: 26.2 cm2 LA length (vol): 6.5 cm LA vol: 99.0 ml LA vol index: 60.9 ml/m2 Doppler Measurements Calculations MV dec time: 0.18 secMV V2 max: E/E' lat: 5.5 Ao V2 max: 107.0 cm/sec E/E' med: 13.5 158.0 cm/sec MV max PG: Ao max P.0 mmHg 10.0 mmHg MV V2 mean: Ao mean P.3 cm/sec 5.0 mmHg MV mean PG: Ao V2 mean: 2.0 mmHg 104.0 cm/sec MV V2 VTI: 39.6 cm Ao V2 VTI: 37.4 cm MVA(VTI): 1.7 cm2 RADHA(I,D): 1.8 cm2 RADHA(V,D): 1.7 cm2 __ AI max terry: LV V1 max PG: MR max terry: TV max P.0 cm/sec 2.5 mmHg 440.0 cm/sec 34.0 mmHg AI max P.4 mmHg LV V1 mean PG: MR max PG: AI dec slope: 1.0 mmHg 78.0 mmHg 311.0 cm/sec2 LV V1 mean: AI P1/2t: 377.7 msec 52.0 cm/sec LV V1 VTI: 18.9 cm __ TR max terry: 291.0 cm/sec TR max P.9 mmHg RAP systole: 3.0 mmHg Electronically signed by: EL GARCIA MD on (more content not included)... Normal [facility] Magnesiumon 04-09-2025 Magnesium [Mass/Vol] 1.1 mg/dL Low 1.9-2.7 [facility] Comment on above: Result Comment: PERF ORMED BY: [facility] [address] [place] [address] PATHOLOGIST [employer] WORKER ELIZABETH MOREL M.D. Performed By: #### M G, PT, CMP, PHOS, CBC, PTT ####[facility] [id number] [place] [address] [facility] Partial Thromboplastin Timeo n 04-09-2025 aPTT Coag (Bld) [Time] 31.2 s Normal 25.1-36.5 [facility] Comment on above: Result Comment: A he matocrit value greater than 55% may lead to inaccurate results in coagulation testing. Patients having hematocrit values >55% require a special collection tube for coagulation studies. Please contact the laboratory at [phone] for redraw instructions. PERFORMED BY: [address] [place] [id number] PATHOLOGIST [employer]ALLBOARD WORKER ELIZABETH MOREL M.D. Performed By: #### M G, PT, CMP, PHOS, CBC, PTT ####[place] [address] [place] [id number] [facility] Phosphoruson 04-09-2025 Phosphate [Mass/Vol] 3.2 mg/dL Normal 2.5-4.5 [facility] Comment on above: Performed By: #### M G, PT, CMP, PHOS, CBC, PTT ####[place] [address] [place] [id number] [facility] Prothrombin Time INRon 04-09 INR Coag (PPP) [Relative time] 1.3 {INR} Normal [facility] Comment on above: Result Comment: INR Therapeutic Range A) Pre- and Peroperative OAT started two weeks before surgery. NOT HIP SURGERY: 1.5 - 2.5 HIP SURGERY: 2 - 3 B) Primary and secondary prevention of venous THROMBOSIS: 2 - 3 C) Active venous thrombosis, pulmonary embolism and prevention of recurrent venous thrombosis: 2 - 3 D) Prevention of arterial thromboembolism including patients with mechanical heart valves: 3 - 4.5 Performed By: #### M G, PT, CMP, PHOS, CBC, PTT ####[address] PT Coag (PPP) [Time] 15.2 s High 9.0-12.9 [facility] Comment on above: Result Comment: A he matocrit value greater than 55% may lead to inaccurate results in coagulation testing. Patients having hematocrit values >55% require a special collection tube for coagulation studies. Please contact the laboratory at [phone] for redraw instructions. Performed By: #### M G, PT, CMP, PHOS, CBC, PTT ####[place] [id number] [facility] Alanine aminotransferase [En zymatic activity/volume] in Serum or PlasmaOrdered By: Sohail Figueroa on 04-08-2025 ALT [Catalytic activity/Vol] 6 U/L Low 7-52 [facility] Comment on above: Performed By: #### P T, PTT, LIPASE, CMP, HS TROP, CBC #### [facility] [address] [place] [address] [place] Albumin [Mass/volume] in Ser um or Plasma by Bromocresol green (BCG) dye binding methoOrdered By: Sohail Figueroa on 04-08-2025 Albumin BCG dye [Mass/Vol] 4.1 g/dL 3.5-5.7 [facility] Alkaline phosphatase [Enzyma tic activity/volume] in Serum or PlasmaOrdered By: Sohail Figueroa on 04-08-2025 ALP [Catalytic activity/Vol] 38 U/L Normal 34-104 [facility] Comment on above: Performed By: #### P T, PTT, LIPASE, CMP, HS TROP, CBC #### [facility] [address] [place] [address] Appearance of UrineOrdered B y: Sohail Figueroa on 04-08-2025 Appearance (U) Clear Normal Clear [facility] Comment on above: Order Comment: Name Collection Type:: Clean-Voided Midstream Performed By: #### A DDONUAPLUS ####[place] [address] [place] Aspartate aminotransferase [ Enzymatic activity/volume] in Serum or PlasmaOrdered By: Sohail Figueroa on 04-08-2025 AST [Catalytic activity/Vol] 22 U/L Normal 13-39 [facility] Comment on above: Performed By: #### P T, PTT, LIPASE, CMP, HS TROP, CBC #### [facility] [address] [place] [address] BNP ser/plasOrdered By: Desirae Figueroa on 04-08-2025 Natriuretic peptide B (Bld) [Mass/Vol] 1455.0 pg/mL High 5-100 [facility] Comment on above: Result Comment: PERF ORMED BY: [place] [address] PATHOLOGIST [employer] WORKER ELIZABETH MOREL M.D. Performed By: #### B RADIO RIGGER ####[place] [address] [place] Bacteria [Presence] in Urine by AutomatedOrdered By: Sohail Figueroa on 04-08-2025 Bacteria Auto Ql (U) None seen [HPF] None Seen [facility] Basophils [#/volume] in Bloo d by Automated countOrdered By: Sohail Figueroa on 04-08-2025 Basophils (Bld) [#/Vol] 0.0 10*3/uL Normal 0.0-0.2 [facility] Comment on above: Result Comment: PERF ORMED BY: [place] [address] PATHOLOGIST [employer] WORKER ELIZABETH MOREL M.D. Performed By: #### P T, PTT, LIPASE, CMP, HS TROP, CBC #### [address] Basophils/100 leukocytes in Blood by Automated countOrdered By: Sohail Figueroa on 04-08-2025 Basophils/100 WBC (Bld) 1.0 % Normal . [facility] Comment on above: Performed By: #### P T, PTT, LIPASE, CMP, HS TROP, CBC #### [address] Bilirubin Test strip Ql (U)O rdered By: Sohail Figueroa on 04-08-2025 Bilirubin Ql (U) Negative Negative [facility] Bilirubin.total [Mass/volume ] in Serum or PlasmaOrdered By: Sohail Figueroa on 04-08-2025 Bilirubin [Mass/Vol] 0.6 mg/dL Normal 0.3-1.0 [facility] Comment on above: Performed By: #### P T, PTT, LIPASE, CMP, HS TROP, CBC #### [address] abdomen pelvis wo conon 0 04-08-2025 CT abdomen pelvis wo con [facility] [place] [address] CT Scan Report Signed Patient: Marleni Dennis MR#: [id number] : 1950 Acct:[id number] Age/Sex: 74 / F ADM Date: 04/08/25 Loc: ER Room: Type: [facility] ER Attending Dr: Copies to: Sohail Figueroa PA-C Ordering Provider: Sohail Figueroa PA-C Date of Service: 04/08/25 CT/CT abdomen pelvis wo con: right sided abd pain, gi bleed CT Abdomen and Pelvis withoutcontrast TECHNIQUE: Axial imaging with 2-D reconstruction. . The CT exam was performed using one or more the following dose reduction techniques: Automated exposure control, adjustment of the MA and/or Kv according to patient size, or use of the iterative reconstruction technique. COMPARISON: None History: Stage IV kidney disease. Anemia. Bilateral lower extremity edema. LIMITATIONS: None LOWER THORAX Unremarkable LIVER: Unremarkable GALLBLADDER: Cholecystectomy clips identified. BILE DUCTS: No dilatation SPLEEN: Unremarkable PANCREAS: Unremarkable ADRENAL GLANDS: Unremarkable KIDNEYS:Unremarkable AORTA: No abdominal aortic aneurysm identified. Atherosclerosis iliac stents. RETROPERITONEUM: No significant retroperitoneal abnormalities identified. MESENTERY:Mild edematous changes STOMACH:Unremarkable SMALL BOWEL: The small bowel loops are nondistended. APPENDIX: The appendix is normal. COLON: Distal colonic diverticulosis URINARY BLADDER: Urinary bladder wall thickening. Underdistention versus cystitis. REPRODUCTIVE SYSTEM: Reproductive structures are unremarkable. PNEUMOPERITONEUM: None PERITONEAL FLUID:Minimal ascites BONY STRUCTURES: Lumbosacral postsurgical fusion. Extensive thoracolumbar degeneration ABDOMINAL WALL: Diffuse body wall edema. 3 cm subcutaneous fluid collection adjacent to the right greater trochanter. CT/CT abdomen pelvis wo con IMPRESSION: No nephrolithiasis or obstructive uropathy. anasarca and mesenteric edema. Urinary bladder wall thickening. Underdistention versus cystitis. Minimal ascites. Distal colonic diverticulosis. 3 cm fluid collection adjacent to the right greater trochanter correlate with site of infection. Impression dictated by: Derek Garnett M.D. 04/08/2025 8:27 PM Dictation Location: [place] [address] Transcribed By: [facility] 04/08/252026 Dictated By: Derek Garnett DO 04/08/252018 Signed By: 04/08/252026 Normal [facility] Calcium [Mass/volume] in Ser um or PlasmaOrdered By: Sohail Figueroa on 04-08-2025 Calcium [Mass/Vol] 9.1 mg/dL Normal 8.6-10.3 [facility] Comment on above: Performed By: #### P T, PTT, LIPASE, CMP, HS TROP, CBC #### [facility] [address] Carbon dioxide, total [Moles /volume] in Serum or PlasmaOrdered By: Sohail Figueroa on 04-08-2025 CO2 [Moles/Vol] 25.2 mmol/L Normal 21.0-31.0 [facility] Comment on above: Performed By: #### P T, PTT, LIPASE, CMP, HS TROP, CBC #### [address] Chloride [Moles/volume] in S brian or PlasmaOrdered By: Sohail Figueroa on 04-08-2025 Chloride [Moles/Vol] 101 mmol/L Normal 98-107 [facility] Comment on above: Performed By: #### P T, PTT, LIPASE, CMP, HS TROP, CBC #### [address] Color of Urine by AutoOrdere d By: Sohail Figueroa on 04-08-2025 Color (U) Light-yellow Normal Yellow [facility] Comment on above: Order Comment: Name Collection Type:: Clean-Voided Midstream Performed By: #### A DDONUAPLUS ####[address] Complete Blood Count Auto Di ffon 04-08-2025 Mean Corpuscular HGB Conc 34.0 g/dL Normal 32.0-35.0 [facility] Comment on above: Performed By: #### P T, PTT, LIPASE, CMP, HS TROP, CBC #### [place] [address] [place] Monocytes/100 WBC (Bld) 17.55 % Normal 0.00-20.00 [facility] Comment on above: Performed By: #### P T, PTT, LIPASE, CMP, HS TROP, CBC #### [address] NRBC% 0.1 /100{WBC} Normal 0-0.5 [facility] Comment on above: Performed By: #### P T, PTT, LIPASE, CMP, HS TROP, CBC #### [facility] [address] White Blood Count 4.4 [CFU]/mL Normal 3.8-11.6 [facility] Comment on above: Performed By: #### P T, PTT, LIPASE, CMP, HS TROP, CBC #### [facility] [address] Comprehensive Metabolic Pane cathleen 04-08-2025 Albumin [Mass/Vol] 4.1 g/dL Normal 3.5-5.7 [facility] Comment on above: Performed By: #### P T, PTT, LIPASE, CMP, HS TROP, CBC #### [facility] [address] Creatinine Clr Calc Pharmacy 12.34 Normal [facility] Comment on above: Performed By: #### P T, PTT, LIPASE, CMP, HS TROP, CBC #### [address] GFR/1.73 sq M.predicted MDRD (S/P/Bld) [Vol rate/Area] 13.433 mL/min/{1.73_m2} Normal [facility] Comment on above: Performed By: #### P T, PTT, LIPASE, CMP, HS TROP, CBC #### [facility] [address] Creatinine [Mass/volume] in Serum or PlasmaOrdered By: Sohail Figueroa on 04-08-2025 Creatinine [Mass/Vol] 3.42 mg/dL High 0.60-1.20 [facility] Comment on above: Performed By: #### P T, PTT, LIPASE, CMP, HS TROP, CBC #### [facility] [address] [place] [address] [place] Dipstick and Microscopicon 0 04-08-2025 Bacteria,Urine None Seen Normal None Seen [facility] Comment on above: Order Comment: Name Collection Type:: Clean-Voided Midstream Performed By: #### A DDONUAPLUS ####[facility] Bilirubin,Urine Negative Normal Negative [facility] Comment on above: Order Comment: Name Collection Type:: Clean-Voided Midstream Performed By: #### A DDONUAPLUS ####[place] [id number] [facility] Glucose Ql (U) Normal Normal Normal [facility] Comment on above: Order Comment: Name Collection Type:: Clean-Voided Midstream Performed By: #### A DDONUAPLUS ####[address] Hyaline Casts,Urine None Normal 0-8 [facility] Comment on above: Order Comment: Name Collection Type:: Clean-Voided Midstream Result Comment: PERF ORMED BY: [place] [address] PATHOLOGIST WALLBOARD WORKER ELIZABETH MOREL M.D. Performed By: #### A DDONUAPLUS ####[address] Nitrite,Urine Negative Normal Negative [facility] Comment on above: Order Comment: Name Collection Type:: Clean-Voided Midstream Performed By: #### A DDONUAPLUS ####[place] [id number] [facility] Occult Blood,Urine Negative Normal Negative [facility] Comment on above: Order Comment: Name Collection Type:: Clean-Voided Midstream Result Comment: PERF ORMED BY: [facility] [address] [place] [address] PATHOLOGIST W[employer]BOARD WORKER ELIZABETH MOREL M.D. Performed By: #### A DDONUAPLUS ####[place] [id number] [facility] RBC,Urine 1-2 Normal 0-4 [facility] Comment on above: Order Comment: Name Collection Type:: Clean-Voided Midstream Performed By: #### A DDONUAPLUS ####[place] [id number] [facility] Specificy [place],Urine 1.006 Normal 1.001-1.03 0 [facility] Comment on above: Order Comment: Name Collection Type:: Clean-Voided Midstream Performed By: #### A DDONUAPLUS ####[place] [id number] [address] Urobilinogen,Urine Normal Normal Normal [facility] Comment on above: Order Comment: Name Collection Type:: Clean-Voided Midstream Performed By: #### A DDONUAPLUS ####[address] WBC,Urine 1-2 Normal 0-4 [facility] Comment on above: Order Comment: Name Collection Type:: Clean-Voided Midstream Performed By: #### A DDONUAPLUS ####[address] ECG 12 lead ECGon 04-08-2025 ECG 12 lead ECG [facility] [place] [address] Electrocardiograph Report Signed Patient: Marleni Dennis MR#: [id number] : 1950 Acct:[id number] Age/Sex: 74 / F ADM Date: 04/08/25 Loc: Room: [address] [place] [address] Type: ADM IN Attending Dr: Rajiv Trejo MD Ordering Provider: Sohail Figueroa PA-C Date of Service: 04/08/25 ECG/ECG 12 lead ECG: ill Copies to: Test Reason : Blood Pressure : 216/95 mmHG Vent. Rate : 70 BPM Atrial Rate : 70 BPM P-R Int : 160 ms QRS Dur : 94 ms QT Int : 378 ms P-R-T Axes : 75 110 6 degrees QTcB Int : 408 ms Normal sinus rhythm Left posterior fascicular block Confirmed by Evette Mari MD ([id number]) on 04/09/2025 7:24:05 AM Referred By: Electronically Signed By: Evette Mari MD Transcribed By: MUS Signed By Evette Mari MD 03/19 Normal [facility] Eosinophils [#/volume] in Bl ood by Automated countOrdered By: Sohail Figueroa on 04-08-2025 Eosinophils (Bld) [#/Vol] 0.1 10*3/uL Normal 0.0-0.45 [facility] Comment on above: Performed By: #### P T, PTT, LIPASE, CMP, HS TROP, CBC #### [facility] [address] [place] [address] [place] Eosinophils/100 leukocytes i n Blood by Automated countOrdered By: Sohail Figueroa on 04-08-2025 Eosinophils/100 WBC (Bld) 2.6 % Normal . [facility] Comment on above: Performed By: #### P T, PTT, LIPASE, CMP, HS TROP, CBC #### [facility] [address] Epithelial cells.squamous [# /area] in Urine sediment by Automated countOrdered By: Sohail Figueroa on 04-08-2025 Epithelial cells.squamous Auto (Urine sed) [#/Area] N/A [facility] Erythrocyte distribution wid th [Ratio] by Automated countOrdered By: Sohail Figueroa on 04-08-2025 Erythrocyte distribution width (RBC) [Ratio] 16.0 % High 11.9-15.3 [facility] Comment on above: Performed By: #### P T, PTT, LIPASE, CMP, HS TROP, CBC #### [address] Erythrocytes [#/area] in Uri ne sediment by Automated countOrdered By: Sohail Figueroa on 04-08-2025 RBC Auto (Urine sed) [#/Area] 1-2 [HPF] 0-4 [facility] Erythrocytes [#/volume] in B lood by Automated countOrdered By: Sohail Figueroa on 04-08-2025 RBC (Bld) [#/Vol] 3.34 10*6/uL Low 3.60-5.00 [facility] Comment on above: Performed By: #### P T, PTT, LIPASE, CMP, HS TROP, CBC #### [address] Glucose [Mass/volume] in Ser um or PlasmaOrdered By: Sohail Figueroa on 07-22-2025 Glucose [Mass/Vol] 110 mg/dL High 70-100 [facility] Comment on above: ADA recommended refe rence rangeRandom Glucose Reference Range is dependent on time and content of last meal. Glucose of more than 200 mg/dL in a nonstressed, ambulatory subject supports the diagnosis of Diabetes Mellitus. Result Comment: [place] om Glucose Reference Range is dependent on time and content of last meal. Glucose of more than 200 mg/dL in a nonstressed, ambulatory subject supports the diagnosis of Diabetes Mellitus. ADA recommended reference range Performed By: #### P T, PTT, LIPASE, CMP, HS TROP, CBC #### [facility] [address] Glucose [Mass/volume] in Uri ne by Test stripOrdered By: Sohail Figueroa on 04-08-2025 Glucose Test strip (U) [Mass/Vol] Normal mg/dL Normal [facility] Hematocrit [Volume Fraction] of Blood by Automated countOrdered By: Sohail Figueroa on 04-08-2025 Hematocrit (Bld) [Volume fraction] 29.5 % Low 34.0-46.4 [facility] Comment on above: Performed By: #### P T, PTT, LIPASE, CMP, HS TROP, CBC #### [facility] [address] Hemoglobin Test strip Ql (U) Ordered By: Sohail Figueroa on 04-08-2025 Hemoglobin Ql (U) Negative Negative [facility] Hemoglobin [Mass/volume] in BloodOrdered By: Sohail Figueroa on 04-08-2025 Hemoglobin (Bld) [Mass/Vol] 10.0 g/dL Low 11.8-15.4 [facility] Comment on above: Performed By: #### P T, PTT, LIPASE, CMP, HS TROP, CBC #### [facility] [address] [place] [address] [place] Hyaline casts [#/area] in Ur ine sediment by Automated countOrdered By: Sohail Figueroa on 04-08-2025 Hyaline casts Auto (Urine sed) [#/Area] None [LPF] 0-8 [facility] INR in Platelet poor plasma by Coagulation assayOrdered By: Sohail Figueroa on 04-08-2025 INR Coag (PPP) [Relative time] 1.4 {INR} Normal [facility] Comment on above: INR Therapeutic Rang e A) Pre- and Peroperative OAT started two weeks before surgery. NOT HIP SURGERY: 1.5 - 2.5 HIP SURGERY: 2 - 3B) Primary and secondary prevention of venous THROMBOSIS: 2 - 3C) Active venous thrombosis, pulmonary embolismand prevention of recurrent venous thrombosis: 2 - 3D) Prevention of arterial thromboembolismincluding patients with mechanical heart valves: 3 - 4.5 Result Comment: INR Therapeutic Range A) Pre- and Peroperative OAT started two weeks before surgery. NOT HIP SURGERY: 1.5 - 2.5 HIP SURGERY: 2 - 3 B) Primary and secondary prevention of venous THROMBOSIS: 2 - 3 C) Active venous thrombosis, pulmonary embolism and prevention of recurrent venous thrombosis: 2 - 3 D) Prevention of arterial thromboembolism including patients with mechanical heart valves: 3 - 4.5 Performed By: #### P T, PTT, LIPASE, CMP, HS TROP, CBC #### [facility] [address] [place] [address] [place] Ketones [Presence] in Urine by Test stripOrdered By: Sohail Figueroa on 04-08-2025 Ketones Ql (U) Negative Normal Negative [facility] Comment on above: Order Comment: Name Collection Type:: Clean-Voided Midstream Performed By: #### A DDONUAPLUS ####[facility] [id number] [place] [address] [place] Leukocyte esterase [Presence ] in Urine by Test stripOrdered By: Sohail Figueroa on 04-08-2025 Leukocyte esterase Test strip Ql (U) Negative Normal Negative [facility] Comment on above: Order Comment: Name Collection Type:: Clean-Voided Midstream Performed By: #### A DDONUAPLUS ####[facility] [id number] [place] [address] [place] Leukocytes [#/area] in Urine sediment by Automated countOrdered By: Sohail Figueroa on 04-08-2025 WBC Auto (Urine sed) [#/Area] 1-2 [HPF] 0-4 [facility] Leukocytes [#/volume] correc mare for nucleated erythrocytes in Blood by Automated counOrdered By: Sohail Figueroa on 04-08-2025 WBC corrected for nucl RBC Auto (Bld) [#/Vol] 4.4 10*3/uL 3.8-11.6 [facility] Leukocytes [#/volume] in Blo od by Automated countOrdered By: Sohail Figueroa on 04-08-2025 WBC (Bld) [#/Vol] 4.4 10*3/uL Normal 3.8-11.6 [facility] Comment on above: Performed By: #### P T, PTT, LIPASE, CMP, HS TROP, CBC #### [facility] [address] Lipase [Enzymatic activity/v olume] in Serum or PlasmaOrdered By: Sohail Figueroa on 04-08-2025 Lipase [Catalytic activity/Vol] 110.0 U/L High 11.0-82.0 [facility] Comment on above: Result Comment: PERF ORMED BY: [place] [address] PATHOLOGIST [employer] WORK[employer] ELIZABETH MOREL M.D. Performed By: #### P T, PTT, LIPASE, CMP, HS TROP, CBC #### [facility] [address] [place] [address] [place] Lymphocytes [#/volume] in Bl ood by Automated countOrdered By: Sohail Figueroa on 04-08-2025 Lymphocytes (Bld) [#/Vol] 1.0 10*3/uL Normal 1.00-4.8 [facility] Comment on above: Performed By: #### P T, PTT, LIPASE, CMP, HS TROP, CBC #### [facility] [address] [place] [address] [place] Lymphocytes/100 leukocytes i n Blood by Automated countOrdered By: Sohail Figueroa on 04-08-2025 Lymphocytes/100 WBC (Bld) 23.3 % Normal . [facility] Comment on above: Performed By: #### P T, PTT, LIPASE, CMP, HS TROP, CBC #### [facility] [address] [place] [address] [place] MCH [Entitic mass] by Automa mare countOrdered By: Sohail Figueroa on 04-08-2025 MCH (RBC) [Entitic mass] 30.1 pg Normal 24.7-34.3 [facility] Comment on above: Performed By: #### P T, PTT, LIPASE, CMP, HS TROP, CBC #### [facility] [address] [place] [address] MCHC Auto (RBC) [Mass/Vol]Or dered By: Sohail Figueroa on 04-08-2025 MCHC (RBC) [Mass/Vol] 34.0 g/dL 32.0-35.0 [facility] MCV [Entitic volume] by Auto mated countOrdered By: Sohail Figueroa on 04-08-2025 MCV (RBC) [Entitic vol] 88.4 fL Normal 80-100 [facility] Comment on above: Performed By: #### P T, PTT, LIPASE, CMP, HS TROP, CBC #### [address] Monocyte distribution width [Entitic volume] in Blood by AutomatedOrdered By: Sohail Figueroa on 04-08-2025 Monocyte distribution width Auto (Bld) [Entitic vol] 17.55 % 0.00-20.00 [facility] Monocytes [#/volume] in Bloo d by Automated countOrdered By: Sohail Figueroa on 04-08-2025 Monocytes (Bld) [#/Vol] 0.4 10*3/uL Normal 0.0-0.8 [facility] Comment on above: Performed By: #### P T, PTT, LIPASE, CMP, HS TROP, CBC #### [facility] [address] [place] [address] Monocytes/100 leukocytes in Blood by Automated countOrdered By: Sohail Figueroa on 04-08-2025 Monocytes/100 WBC (Bld) 10.0 % Normal . [facility] Comment on above: Performed By: #### P T, PTT, LIPASE, CMP, HS TROP, CBC #### [address] Neutrophils [#/volume] in Bl ood by Automated countOrdered By: Sohail Figueroa on 04-08-2025 Neutrophils (Bld) [#/Vol] 2.8 10*3/uL Normal 1.8-7.7 [facility] Comment on above: Performed By: #### P T, PTT, LIPASE, CMP, HS TROP, CBC #### [facility] [address] Neutrophils/100 leukocytes i n Blood by Automated countOrdered By: Sohail Figueroa on 04-08-2025 Neutrophils/100 WBC (Bld) 63.1 % Normal . [facility] Comment on above: Performed By: #### P T, PTT, LIPASE, CMP, HS TROP, CBC #### [facility] [address] Nitrite Test strip Ql (U)Ord ered By: Sohail Figueroa on 04-08-2025 Nitrite Ql (U) Negative Negative [facility] No Panel InformationOrdered By: Sohail Figueroa on 04-08-2025 Estimated GFR (CKD-EPI) 13.433 mL/Min [facility] Creatinine Clearance (Chem 12.34 [facility] Nucleated erythrocytes [Pres ence] in Blood by Automated countOrdered By: Sohail Figueroa on 04-08-2025 Nucleated RBC Auto Ql (Bld) 0.1 /100{WBC} 0-0.5 [facility] Partial Thromboplastin Timeo n 04-08-2025 aPTT Coag (Bld) [Time] 31.6 s Normal 25.1-36.5 [facility] Comment on above: Result Comment: A he matocrit value greater than 55% may lead to inaccurate results in coagulation testing. Patients having hematocrit values >55% require a special collection tube for coagulation studies. Please contact the laboratory at [phone] for redraw instructions. PERFORMED BY: [address] [place] [address] PATHOLOGIST [employer] WORKER ELIZABETH MOREL M.D. Performed By: #### P T, PTT, LIPASE, CMP, HS TROP, CBC #### [facility] [address] Platelet mean volume [Entiti c volume] in Blood by Automated countOrdered By: Sohail Figueroa on 04-08-2025 Platelet mean volume (Bld) [Entitic vol] 9.5 fL Normal 6.3-10.7 [facility] Comment on above: Performed By: #### P T, PTT, LIPASE, CMP, HS TROP, CBC #### [facility] [address] [place] [id number] [place] Platelets [#/volume] in Bloo d by Automated countOrdered By: Sohail Figueroa on 04-08-2025 Platelets (Bld) [#/Vol] 211 10*3/uL Normal 150-450 [facility] Comment on above: Performed By: #### P T, PTT, LIPASE, CMP, HS TROP, CBC #### [facility] [address] [place] [address] [place] Potassium [Moles/volume] in Serum or PlasmaOrdered By: Sohail Figueroa on 04-08-2025 Potassium [Moles/Vol] 4.3 mmol/L Normal 3.5-5.1 [facility] Comment on above: Performed By: #### P T, PTT, LIPASE, CMP, HS TROP, CBC #### [facility] [address] [place] [address] [place] Protein [Mass/volume] in Ser um or PlasmaOrdered By: Sohail Figueroa on 04-08-2025 Protein [Mass/Vol] 7.1 g/dL Normal 6.4-8.9 [facility] Comment on above: Performed By: #### P T, PTT, LIPASE, CMP, HS TROP, CBC #### [facility] [address] [place] [address] [place] Protein [Mass/volume] in Uri ne by Test stripOrdered By: Sohail Figueroa on 04-08-2025 Protein (U) [Mass/Vol] 50 mg/dL Normal Negative [facility] Comment on above: Order Comment: Name Collection Type:: Clean-Voided Midstream Performed By: #### A DDONUAPLUS ####[facility] [id number] [place] [id number] [facility] Prothrombin time (PT)Ordered By: Sohail Figueroa on 04-08-2025 PT Coag (PPP) [Time] 16.2 s High 9.0-12.9 [facility] Comment on above: A hematocrit value g reater than 55% may lead to inaccurate results in coagulation testing. Patients having hematocrit values >55% require a special collection tube for coagulation studies. Please contact the laboratory at [phone] for redraw instructions. Result Comment: A he matocrit value greater than 55% may lead to inaccurate results in coagulation testing. Patients having hematocrit values >55% require a special collection tube for coagulation studies. Please contact the laboratory at [phone] for redraw instructions. Performed By: #### P T, PTT, LIPASE, CMP, HS TROP, CBC #### [address] Serum globulin measurement b y calculation (mass/volume)Ordered By: Sohail Figueroa on 04-08-2025 Globulin (S) [Mass/Vol] 3.0 g/dL [facility] Comment on above: Performed By: #### P T, PTT, LIPASE, CMP, HS TROP, CBC #### [address] Serum or plasma albumin/glob ulin mass ratioOrdered By: Sohail Figueroa on 04-08-2025 Albumin/Globulin [Mass ratio] 1.4 {ratio} [facility] Comment on above: Performed By: #### P T, PTT, LIPASE, CMP, HS TROP, CBC #### [address] Serum or plasma anion gap de terminationOrdered By: Sohail Figueroa on 04-08-2025 Anion gap [Moles/Vol] 15.1 mmol/L High 6.0-15.0 [facility] Comment on above: Performed By: #### P T, PTT, LIPASE, CMP, HS TROP, CBC #### [address] Sodium [Moles/volume] in Ser um or PlasmaOrdered By: Sohail Figueroa on 04-08-2025 Sodium [Moles/Vol] 137 mmol/L Normal 136-145 [facility] Comment on above: Performed By: #### P T, PTT, LIPASE, CMP, HS TROP, CBC #### [facility] [address] [place] [id number] [facility] Specific gravity Test strip (U) [Rel density]Ordered By: Sohail Figueroa on 04-08-2025 Specific gravity (U) [Rel density] 1.006 1.001-1.03 0 [facility] Troponin I High Sensitivityo n 04-08-2025 Troponin I High Sensitivity 25 High 0-15 [facility] Comment on above: Result Comment: The Troponin units of report have been changed to meet the Chest Pain Accreditation requirement, element EC5.M1l2. Troponin units are changed from pg/ml to ng/L. Also, the decimal is removed and results are in whole numbers. PERFORMED BY: [place] [address] PATHOLOGIST [employer] WORKER ELIZABETH MOREL M.D. Performed By: #### P T, PTT, LIPASE, CMP, HS TROP, CBC #### [facility] [address] [place] [address] Troponin I.cardiac [Mass/vol ume] in Serum or Plasma by Detection limit <= 0.01 ng/mLOrdered By: Sohail Figueroa on 04-08-2025 Troponin I.cardiac DL <= 0.01 ng/mL [Mass/Vol] 25 ng/L High 0-15 [facility] Comment on above: The Troponin units o f report have been changed to meet the Chest Pain Accreditation requirement, element EC5.M1l2. Troponin units are changed from pg/ml to ng/L. Also, the decimal is removed and results are in whole numbers. Type and Screenon 04-08-2025 ABO and Rh group Nom (Bld) Blood group AB Rh(D) positive Normal [facility] Comment on above: Result Comment: PERF ORMED BY: [place] [address] PATHOLOGIST [employer] WORKER ELIZABETH MOREL M.D. Urea nitrogen [Mass/volume] in Serum or PlasmaOrdered By: Sohail Figueroa on 04-08-2025 Urea nitrogen [Mass/Vol] 71 mg/dL High 7-25 [facility] Comment on above: Performed By: #### P T, PTT, LIPASE, CMP, HS TROP, CBC #### [address] Urobilinogen Test strip (U) [Mass/Vol]Ordered By: Sohail Figueroa on 04-08-2025 Urobilinogen (U) [Mass/Vol] Normal mg/dL Normal [facility] X-ray reportOrdered By: Kory Garnett on 04-08-2025 Study report [facility] [place] [address] XRay Report Signed Patient: Marleni Dennis MR#: [id number] : 1950 Acct:[id number] Age/Sex: 74 / F ADM Date: 5 Loc: ER Room: Type: [facility] ER Attending Dr: Copies to: Sohail Figueroa PA-C~ Ordering Provider: Sohail Figueroa PA-C Date of Service: 04/08/25 XR/XR chest 2V*: sob Plain film chest 2 view HISTORY: Stage IV kidney disease. Shortness of breath COMPARISON: None FINDINGS: SUPPORT DEVICES: None POSTSURGICAL CHANGES: CABG HEART: Cardiomegaly PULMONARY SHARRON: Hilar vascular prominence MEDIASTINUM: Atherosclerosis and tortuosity of thoracic aorta LUNGS AND PLEURA: No acute lung process, pleural effusion or pneumothorax identified. Minor similar interstitial changes BONY STRUCTURES: Intact ADDITIONAL FINDINGS None XR/XR chest 2V* IMPRESSION: Cardiomegaly with hilar vascular prominence. Impression dictated by: Derek Garnett M.D. 04/08/2025 8:43 PM Dictation Location: [place] [address] Transcribed By: [facility] 04/08/252042 Dictated By: Derek Garnett DO 04/08/252038 Signed By: 04/08/252042 [facility] XR chest 2V*on 04-08-2025 XR chest 2V* [facility] [place] [address] XRay Report Signed Patient: Marleni Dennis MR#: [id number] : 1950 Acct:[id number] Age/Sex: 74 / F ADM Date: 04/08/25 Loc: ER Room: Type: [facility] ER Attending Dr: Copies to: Sohail Figueroa PA-C Ordering Provider: Sohail Figueroa PA-C Date of Service: 04/08/25 XR/XR chest 2V*: sob Plain film chest 2 view HISTORY: Stage IV kidney disease. Shortness of breath COMPARISON: None FINDINGS: SUPPORT DEVICES: None POSTSURGICAL CHANGES: CABG HEART: Cardiomegaly PULMONARY SHARRON: Hilar vascular prominence MEDIASTINUM: Atherosclerosis and tortuosity of thoracic aorta LUNGS AND PLEURA: No acute lung process, pleural effusion or pneumothorax identified. Minor similar interstitial changes BONY STRUCTURES: Intact ADDITIONAL FINDINGS None XR/XR chest 2V* IMPRESSION: Cardiomegaly with hilar vascular prominence. Impression dictated by: Derek Garnett M.D. 04/08/2025 8:43 PM Dictation Location: [place] [address] Transcribed By: [facility] 04/08/252042 Dictated By: Derek Garnett DO 04/08/252038 Signed By: 04/08/252042 Normal [facility] aPTT in Platelet poor plasma by Coagulation assayOrdered By: Sohail Figueroa on 04-08-2025 aPTT Coag (PPP) [Time] 31.6 s 25.1-36.5 [facility] Comment on above: A hematocrit value g reater than 55% may lead to inaccurate results in coagulation testing. Patients having hematocrit values >55% require a special collection tube for coagulation studies. Please contact the laboratory at [phone] for redraw instructions. pH of Urine by Test stripOrd ered By: Sohail Figueroa on 04-08-2025 pH (U) 6.5 [pH] Normal 5.0-9.0 [facility] Comment on above: Order Comment: Name Collection Type:: Clean-Voided Midstream Performed By: #### A DDONUAPLUS ####[facility] [id number] [place] [id number] [facility] CBC (INCLUDES DIFF/PLT)on Basophils (Bld) [#/Vol] 0.02 10*3/uL Normal 0-200 [facility] Comment on above: Performed By: #### 3 020, 58189, %SBCULI, 6399 #### [facility] of [place] [address] Orthotist: Figueroa Jacques MD Basophils/100 WBC (Bld) 0.5 % Normal [facility] Comment on above: Performed By: #### 3 020, 65784, %SBCULI, 6399 #### [facility] [place] [address] Orthotist: Figueroa Jacques MD Eosinophils (Bld) [#/Vol] 0.121 10*3/uL Normal 15-500 [facility] Comment on above: Performed By: #### 3 020, 58427, %SBCULI, 6399 #### [facility] [place] [address] Orthotist: Figueroa aJcques MD Eosinophils/100 WBC (Bld) 3.1 % Normal [facility] Comment on above: Performed By: #### 3 020, 28316, %SBCULI, 6399 #### [facility] [place] [address] Orthotist: Figueroa Jacques MD Erythrocyte distribution width (RBC) [Ratio] 15.8 % High 11.0-15.0 [facility] Comment on above: Performed By: #### 3 020, 61964, %SBCULI, 6399 #### [facility] [place] [address] Orthotist: Figueroa Jacques MD Hematocrit (Bld) [Volume fraction] 27.4 % Low 35.0-45.0 [facility] Comment on above: Performed By: #### 3 020, 08623, %SBCULI, 6399 #### [facility] [place] [address] Orthotist: Figueroa Jacques MD Hemoglobin (Bld) [Mass/Vol] 8.7 g/dL Low 11.7-15.5 [facility] Comment on above: Performed By: #### 3 020, 00231, %SBCULI, 6399 #### [facility] [place] [address] Orthotist: Figueroa Jacques MD Lymphocytes (Bld) [#/Vol] 0.94 10*3/uL Normal 850-3900 [facility] Comment on above: Performed By: #### 3 020, 57456, %SBCULI, 6399 #### [facility] [place] [address] Orthotist: Figueroa Jacques MD Lymphocytes/100 WBC (Bld) 24.1 % Normal [facility] Comment on above: Performed By: #### 3 020, 46921, %SBCULI, 6399 #### [facility] [place] [address] Orthotist: Figueroa Jacques MD MCH (RBC) [Entitic mass] 29.6 pg Normal 27.0-33.0 [facility] Comment on above: Performed By: #### 3 020, 98289, %SBCULI, 6399 #### [facility] [place] [address] Orthotist: Figueroa Jacques MD MCHC (RBC) [Mass/Vol] 31.8 g/dL Low 32.0-36.[address] [facility] Comment on above: Result Comment: For adults, a slight decrease in the calculated MCHC value (in the range of 30 to 32 g/dL) is most likely not clinically significant; however, it should be interpreted with caution in correlation with other red cell parameters and the patient's clinical condition. Performed By: #### 3 020, 71403, %SBCULI, 6399 #### [facility] [place] [address] Orthotist: Figueroa Jacques MD MCV (RBC) [Entitic vol] 93.2 fL Normal 80.0-100.0 [facility] Comment on above: Performed By: #### 3 020, 74014, %SBCULI, 6399 #### [facility] [place] [address] Orthotist: Figueroa Jacques MD Monocytes (Bld) [#/Vol] 0.507 10*3/uL Normal 200-950 [facility] Comment on above: Performed By: #### 3 020, 90035, %SBCULI, 6399 #### [facility] [place] [address] Orthotist: Figueroa Jacques MD Monocytes/100 WBC (Bld) 13.0 % Normal [facility] Comment on above: Performed By: #### 3 020, 19261, %SBCULI, 6399 #### [facility] [place] [address] Orthotist: Figueroa Jacques MD Neutrophils (Bld) [#/Vol] 2.313 10*3/uL Normal 9449-9748 [facility] Comment on above: Performed By: #### 3 020, 98319, %SBCULI, 6399 #### [facility] [place] [address] Orthotist: Figueroa Jacques MD Neutrophils/100 WBC (Bld) 59.3 % Normal [facility] Comment on above: Performed By: #### 3 020, 65468, %SBCULI, 6399 #### [facility] [place] [address] Orthotist: Figueroa Jacques MD Platelet mean volume (Bld) [Entitic vol] 11.3 fL Normal 7.5-12.5 [facility] Comment on above: Performed By: #### 3 020, 23607, %SBCULI, 6399 #### [facility] [place] [address] Orthotist: Figueroa Jacques MD Platelets (Bld) [#/Vol] 188 10*3/uL Normal 140-400 [facility] Comment on above: Performed By: #### 3 020, 37432, %SBCULI, 6399 #### [facility] of [address], [address] [place] [address] Orthotist: Figueroa Jacques MD RBC (Bld) [#/Vol] 2.94 10*6/uL Low 3.80-5.10 [facility] Comment on above: Performed By: #### 3 020, 50391, %SBCULI, 6399 #### [facility] of [address], [address] [place] [address] Orthotist: Figueroa Jacques MD WBC (Bld) [#/Vol] 3.9 10*3/uL Normal 3.8-10.8 [facility] Comment on above: Performed By: #### 3 020, 33149, %SBCULI, 6399 #### [facility] of [address], [address] [place] [address] Orthotist: Figueroa Jacques MD [facility] 04-04-2025 Albumin [Mass/Vol] 3.6 g/dL Normal 3.6-5.1 [facility] Comment on above: Performed By: #### 3 020, 50709, %SBCULI, 6399 #### [facility] of [place] [address] Orthotist: Figueroa Jacques MD Albumin/Globulin [Mass ratio] 1.4 {ratio} Normal 1.0-2.5 [facility] Comment on above: Performed By: #### 3 020, 28914, %SBCULI, 6399 #### [facility] of [address], [address] [place] [address] Orthotist: Figueroa Jacques MD ALP [Catalytic activity/Vol] 37 U/L Normal 37-153 [facility] Comment on above: Performed By: #### 3 020, 97761, %SBCULI, 6399 #### [facility] of [address], [address] [place] [address] Orthotist: Figueroa Jacques MD ALT [Catalytic activity/Vol] 5 U/L Low 6-29 [facility] Comment on above: Performed By: #### 3 020, 91446, %SBCULI, 6399 #### [facility] of [place] [address] Orthotist: Figueroa Jacques MD AST [Catalytic activity/Vol] 15 U/L Normal 10-35 [facility] Comment on above: Performed By: #### 3 020, 69349, %SBCULI, 6399 #### [facility] of [place] [address] Orthotist: Figueroa Jacques MD Bilirubin [Mass/Vol] 0.6 mg/dL Normal 0.2-1.2 [facility] Comment on above: Performed By: #### 3 020, 80862, %SBCULI, 6399 #### [facility] of [place] [address] Orthotist: Figueroa Jacques MD Calcium [Mass/Vol] 8.8 mg/dL Normal 8.6-10.4 [facility] Comment on above: Performed By: #### 3 020, 49949, %SBCULI, 6399 #### [facility] of [place] [address] Orthotist: Figueroa Jacques MD Chloride [Moles/Vol] 98 mmol/L Normal 98-110 [facility] Comment on above: Performed By: #### 3 020, 35040, %SBCULI, 6399 #### [facility] of [place] [address] Orthotist: Figueroa Jacques MD CO2 [Moles/Vol] 25 mmol/L Normal 20-32 [facility] Comment on above: Performed By: #### 3 020, 58541, %SBCULI, 6399 #### [facility] of [place] [address] Orthotist: Figueroa Jacques MD Creatinine [Mass/Vol] 4.59 mg/dL High 0.60-1.[address] [facility] Comment on above: Performed By: #### 3 020, 50167, %SBCULI, 6399 #### [facility] [place] [address] Orthotist: Figueroa Jacques MD GFR/1.73 sq M.predicted among non-blacks MDRD (S/P/Bld) [Vol rate/Area] 9 mL/min/{1.73_m2} Low > OR = 60 [facility] Comment on above: Performed By: #### 3 020, 60767, %SBCULI, 6399 #### [facility] [place] [address] Orthotist: Figueroa Jacques MD Globulin (S) [Mass/Vol] 2.5 g/dL Normal 1.9-3.7 [facility] Comment on above: Performed By: #### 3 020, 18311, %SBCULI, 6399 #### [facility] [place] [address] Orthotist: Figueroa Jacques MD Glucose [Mass/Vol] 96 mg/dL Normal 65-99 [facility] Comment on above: Result Comment: Fasting reference interval Performed By: #### 3 020, 21473, %SBCULI, 6399 #### [facility] [place] [address] Orthotist: Figueroa Jacques MD Potassium [Moles/Vol] 3.8 mmol/L Normal 3.5-5.[address] [facility] Comment on above: Performed By: #### 3 020, 28779, %SBCULI, 6399 #### [facility] [place] [address] Orthotist: Figueroa Jacques MD Protein [Mass/Vol] 6.1 g/dL Normal 6.1-8.1 [facility] Comment on above: Performed By: #### 3 020, 49363, %SBCULI, 6399 #### [facility] [place] [address] Orthotist: Figueroa Jacques MD Sodium [Moles/Vol] 136 mmol/L Normal 135-146 [facility] Comment on above: Performed By: #### 3 020, 95643, %SBCULI, 6399 #### [facility] [address], [address] [place] [address] Orthotist: Figueroa Jacques MD Urea nitrogen [Mass/Vol] 69 mg/dL High 7-25 [facility] Comment on above: Performed By: #### 3 020, 34316, %SBCULI, 6399 #### [facility] [address], [address] [place] [address] Orthotist: Figuerao Jacques MD Urea nitrogen/Creatinine [Mass ratio] 15 mg/mg Normal 6-22 [facility] Comment on above: Performed By: #### 3 020, 18288, %SBCULI, 6399 #### [facility] [address], [address] [place] [address] Orthotist: Figueroa Jacques MD CULTURE, URINE, ROUTINEon CULTURE, URINE, ROUTINE SEE NOTE Normal [facility] Comment on above: Result Comment: CULTURE, URINE, ROUTINE Micro Number: [id number] Test Status: Final Specimen Source: Urine Specimen Quality: Adequate Result: Less than 10,000 CFU/mL of single Gram positive organism isolated. No further testing will be performed. If clinically indicated, recollection using a method to minimize contamination, with prompt transfer to Urine Culture Transport Tube, is recommended. Performed By: #### 1 0231, 6399, 10679, 899, 1140 #### [facility] of [address], [address] [place] [address] Orthotist: Figueroa Jacques MD Office Visiton 04-04-2025 Follow-up visit [id number] Lauren Dennis 1950 F Date Provider Department [place] 04/04/2025 [id number] WALLER C[facility] Family History Problem Relation Age of Onset Coronary artery disease Mother Stroke Mother Coronary artery disease Father Ovarian cancer Sister Family Status - Relation Status Age at Mother Father Sister Level of Service:42899 [place] OFFICE/OUTPATIENT ESTABLISHED MOD MDM 30 MIN Normal [facility] REFLEXIVE URINE CULTUREon REFLEXIVE URINE CULTURE Normal [facility] Comment on above: Result Comment: CULT URE INDICATED - RESULTS TO FOLLOW Performed By: #### 3 020, 05291, %SBCULI, 6399 #### [facility] of [address], [address] [place] [address] Orthotist: Figueroa Jacques MD URINALYSIS, COMPLETE W/REFLE X TO CULTUREon 04-04-2025 Appearance (U) CLOUDY Abnormal CLEAR [facility] Comment on above: Performed By: #### 3 020, 56686, %SBCULI, 6399 #### [facility] of [place] [address] Orthotist: Figueroa Jacques MD BACTERIA NONE SEEN Normal NONE SEEN [facility] Comment on above: Performed By: #### 3 020, 41199, %SBCULI, 6399 #### [facility] of [place] [address] Orthotist: Figueroa Jacques MD Bilirubin Ql (U) Negative Normal NEGATIVE [facility] Comment on above: Performed By: #### 3 020, 94172, %SBCULI, 6399 #### [facility] of [place] [address] Orthotist: Figueroa Jacques MD Color (U) YELLOW Normal YELLOW [facility] Comment on above: Performed By: #### 3 020, 18738, %SBCULI, 6399 #### [facility] of [place] [address] Orthotist: Figueroa Jacques MD Glucose Ql (U) Negative Normal NEGATIVE [facility] Comment on above: Performed By: #### 3 020, 40582, %SBCULI, 6399 #### [facility] of [place] [address] Orthotist: Figueroa Jacques MD HYALINE CAST 10-20 Abnormal NONE SEEN [facility] Comment on above: Performed By: #### 3 020, 76253, %SBCULI, 6399 #### [facility] of [address], [address] [place] [address] Orthotist: Figueroa Jacques MD Ketones Ql (U) Negative Normal NEGATIVE [facility] Comment on above: Performed By: #### 3 020, 70229, %SBCULI, 6399 #### [facility] of [place] [address] Orthotist: Figueroa Jacques MD Leukocyte esterase Test strip Ql (U) TRACE Abnormal NEGATIVE [facility] Comment on above: Performed By: #### 3 020, 00415, %SBCULI, 6399 #### [facility] [place] [address] Orthotist: Figueroa Jacques MD Nitrite Ql (U) Negative Normal NEGATIVE [facility] Comment on above: Performed By: #### 3 020, 32750, %SBCULI, 6399 #### [facility] [place] [address] Orthotist: Figueroa Jacques MD NOTE Normal [facility] Comment on above: Result Comment: This urine was analyzed for the presence of WBC, RBC, bacteria, casts, and other formed elements. Only those elements seen were reported. Performed By: #### 3 020, 98198, %SBCULI, 6399 #### [facility] [place] [address] Orthotist: Figueroa Jacques MD OCCULT BLOOD Negative Normal NEGATIVE [facility] Comment on above: Performed By: #### 3 020, 94807, %SBCULI, 6399 #### [facility] [place] [address] Orthotist: Figueroa Jacques MD pH (U) 5.5 [pH] Normal 5.0-8.0 [facility] Comment on above: Performed By: #### 3 020, 21498, %SBCULI, 6399 #### [facility] of [place] [address] Orthotist: Figueroa Jacques MD Protein Ql (U) 3+ Abnormal NEGATIVE [facility] Comment on above: Performed By: #### 3 020, 18759, %SBCULI, 6399 #### [facility] of [address], [address] [place] [address] Orthotist: Figueroa Jacques MD RBC NONE SEEN Normal < OR = 2 [facility] Comment on above: Performed By: #### 3 020, 32752, %SBCULI, 6399 #### [facility] of [place] [address] Orthotist: Figueroa Jacques MD Specific gravity (U) [Rel density] 1.010 Normal 1.001-1.03 5 [facility] Comment on above: Performed By: #### 3 020, 71926, %SBCULI, 6399 #### [facility] of [place] [address] Orthotist: Figueroa Jacques MD SQUAMOUS EPITHELIAL CELLS 0-5 Normal < OR = 5 [facility] Comment on above: Performed By: #### 3 020, 98536, %SBCULI, 6399 #### [facility] of [place] [address] Orthotist: Figueroa Jacques MD WBC 0-5 Normal < OR = 5 [facility] Comment on above: Performed By: #### 3 020, 32820, %SBCULI, 6399 #### [facility] of [place] [address] Orthotist: Figueroa Jacques MD 30on 03-20-2025 30 The patient is Moder ately Stable - Low risk of patient condition declining or worsening The patient's goals for the shift include rest The clinical goals for the shift include vss Normal [facility] BASIC METABOLIC PANELon 07-0 Anion gap [Moles/Vol] 13 mmol/L Normal 7-20 [facility] Comment on above: Performed By: #### L [id number] ####[facility] ([facility])[address] [place] [address] Calcium [Mass/Vol] 8.3 mg/dL Low 8.6-10.3 [facility] Comment on above: Performed By: #### L [id number] ####[facility] ([facility])[address] [place] [address] Chloride [Moles/Vol] 106 mmol/L Normal 98-107 [facility] Comment on above: Performed By: #### L [id number] ####[facility] ([facility])[address] [place] [address] CO2 [Moles/Vol] 21 mmol/L Normal 21-31 [facility] Comment on above: Performed By: #### L [id number] ####[facility] ([facility])[address] [place] [address] Creatinine [Mass/Vol] 3.69 mg/dL High 0.60-1.20 [facility] Comment on above: Performed By: #### L [id number] ####[facility] ([facility])[address] [place] [address] GLOMERULAR FILTRATION RATE ML/MIN/1.73 SQ M.PREDICTED 12.3 mL/min/1.73m*2 Low >60.0 [facility] Comment on above: Result Comment: The [facility]???s estimated glomerular filtration rate (eGFR) will no longer include consideration of race in its calculation. The National Kidney Foundation???s eGFR Task Force developed new recommendations for the estimation of the glomerular filtration rate in the [place] They recommend immediate implementation of the new equation refit without the race variable in all laboratories because the calculation does not include race. In addition to not including race in the calculation and reporting, it included diversity in its development, and has acceptable performance characteristics and potential consequences that do not disproportionately affect any one group of individuals. Performed By: #### L [id number] ####[facility] ([facility])[address] [place] [address] Glucose [Mass/Vol] 82 mg/dL Normal 70-100 [facility] Comment on above: Performed By: #### L [id number] ####[facility] ([facility])[address] [place] [address] Potassium [Moles/Vol] 5.1 mmol/L Normal 3.5-5.1 [facility] Comment on above: Performed By: #### L [id number] ####[facility] ([facility])[address] [place] [address] Sodium [Moles/Vol] 135 mmol/L Low 136-145 [facility] Comment on above: Performed By: #### L [id number] ####[facility] ([facility])[address] [place] [address] Urea nitrogen [Mass/Vol] 85 mg/dL High 7-25 [facility] Comment on above: Performed By: #### L [id number] ####[facility] ([facility])[address] [place] [address] UREA NITROGEN/CREATININE (MASS RATIO) IN SER/PLAS 23.0 Normal [facility] Comment on above: Performed By: #### L [id number] ####[facility] ([facility])[address] [place] [address] CBC WITH AUTO DIFFERENTIALon 03-20-2025 Erythrocyte distribution width (RBC) [Ratio] 16.5 % High 11.5-15.0 [facility] Comment on above: Performed By: #### L [id number] #### [facility] ([facility]) [address] [place] [address] ERYTHROCYTE MEAN CORPUSCULAR HEMOGLOBIN CONCENTRATION (G/DL) BY AUTOMATED 33.0 g/dL Normal 32.0-35.0 [facility] Comment on above: Performed By: #### L [id number] #### [facility] ([facility]) [address] [place] [address] Hematocrit (Bld) [Volume fraction] 27.6 % Low 36.0-45.0 [facility] Comment on above: Performed By: #### L [id number] #### [facility] ([facility]) [address] [place] [address] Hemoglobin (Bld) [Mass/Vol] 9.1 g/dL Low 12.0-15.0 [facility] Comment on above: Performed By: #### L [id number] #### [facility] ([facility]) [address] [place] [address] IMMATURE PLATELET FRACTION % 5.6 % Normal 0.8-6.3 [facility] Comment on above: Performed By: #### L [id number] #### [facility] ([facility]) [address] [place] [address] MCH (RBC) [Entitic mass] 29.5 pg Normal 27.0-33.0 [facility] Comment on above: Performed By: #### L [id number] #### [facility] ([facility]) [address] [place] [address] MCV (RBC) [Entitic vol] 89.6 fL Normal 82.0-98.0 [facility] Comment on above: Performed By: #### L [id number] #### [facility] ([facility]) [address] [place] [address] NRBC (PER 100 WBCS) BY AUTOMATED COUNT 0.0 % Normal 0 [facility] Comment on above: Performed By: #### L [id number] #### [facility] ([facility]) [address] [place] [address] PLATELETS (10*3/UL) IN BLOOD AUTOMATED COUNT 137 10*3/uL Low 150-400 [facility] Comment on above: Performed By: #### L [id number] #### [facility] ([facility]) [address] [place] [address] RBC (Bld) [#/Vol] 3.08 10*6/uL Low 3.80-5.00 [facility] Comment on above: Performed By: #### L [id number] #### [facility] ([facility]) [address] [place] [address] WBC (Bld) [#/Vol] 4.82 10*3/uL Normal 4.00-10.60 [facility] Comment on above: Performed By: #### L [id number] #### [facility] ([facility]) [address] [place] [address] MANUAL DIFFERENTIALon 2024 BASOPHILS (10*3/UL) IN BLOOD BY CALCULATION 0.04 10*3/uL Normal 0.00-0.20 [facility] Comment on above: Performed By: #### L [id number] ####[facility] ([facility])[address] [place] [address] BASOPHILS/100 LEUKOCYTES IN BLOOD BY AUTOMATED COUNT 0.8 % Normal 0.0-1.0 [facility] Comment on above: Performed By: #### L [id number] ####[facility] ([facility])[address] [place] [address] EOSINOPHILS (10*3/UL) IN BLOOD BY CALCULATION 0.21 10*3/uL Normal 0.00-0.50 [facility] Comment on above: Performed By: #### L [id number] ####[facility] ([facility])[address] [place] [address] EOSINOPHILS/100 LEUKOCYTES IN BLOOD BY AUTOMATED COUNT 4.4 % Normal 0.0-6.0 [facility] Comment on above: Performed By: #### L [id number] ####[facility] ([facility])[address] [place] [address] IMMATURE GRANULOCYTES (10*3/UL) IN BLOOD BY CALCULATION 0.03 10*3/uL Normal 0.00-0.20 [facility] Comment on above: Performed By: #### L [id number] ####[facility] ([facility])[address] [place] [address] IMMATURE GRANULOCYTES/100 LEUKOCYTES IN BLOOD BY AUTOMATED COUNT 0.6 % Normal 0.0-1.0 [facility] Comment on above: Performed By: #### L [id number] ####[facility] ([facility])[address] [place] [address] LYMPHOCYTES (10*3/UL) IN BLOOD BY CALCULATION 1.64 10*3/uL Normal 1.20-4.00 [facility] Comment on above: Performed By: #### L [id number] ####[facility] ([facility])[address] [place] [address] LYMPHOCYTES/100 LEUKOCYTES IN BLOOD BY AUTOMATED COUNT 34.0 % Normal 20.0-45.0 [facility] Comment on above: Performed By: #### L [id number] ####[facility] ([facility])[address] [place] [address] MONOCYTES (10*3/UL) IN BLOOD BY CALCUATION 0.52 10*3/uL Normal 0.10-1.00 [facility] Comment on above: Performed By: #### L [id number] ####[facility] ([facility])[address] [place] [address] MONOCYTES/100 LEUKOCYTES IN BLOOD BY AUTOMATED COUNT 10.8 % Normal 5.0-12.0 [facility] Comment on above: Performed By: #### L [id number] ####[facility] ([facility])[address] [place] [address] NEUTROPHILS (10*3/UL) IN BLOOD BY CALCULATION 2.4 10*3/uL Normal 1.6-7.6 [facility] Comment on above: Performed By: #### L [id number] ####[facility] ([facility])[address] [place] [address] NEUTROPHILS/100 LEUKOCYTES IN BLOOD BY AUTOMATED COUNT 49.4 % Normal 40.0-72.0 [facility] Comment on above: Performed By: #### L [id number] ####[facility] ([facility])[address] [place] [address] 30on 03-19-2025 30 Problem: Pain - Adul t Goal: Verbalizes/displays adequate comfort level or baseline comfort level Outcome: Progressing Problem: Safety - Adult Goal: Free from fall injury Outcome: Progressing Problem: Skin/Tissue Integrity - Adult Goal: Skin integrity remains intact Outcome: Progressing Problem: Musculoskeletal - Adult Goal: Return mobility to safest level of function Outcome: Progressing Problem: Metabolic/Fluid and Electrolytes - Adult Goal: Electrolytes maintained within normal limits Outcome: Progressing Goal: Hemodynamic stability and optimal renal function maintained Outcome: Progressing The patient is Moderately Stable - Low risk of patient condition declining or worsening The patient's goals for the shift include rest The clinical goals for the shift include stable vitals Normal [facility] BASIC METABOLIC PANELon 07-0 Anion gap [Moles/Vol] 12 mmol/L Normal 7-20 [facility] Comment on above: Performed By: #### L [id number] #### [facility] ([facility]) [address] [place] [address] Calcium [Mass/Vol] 8.4 mg/dL Low 8.6-10.3 [facility] Comment on above: Performed By: #### L [id number] #### [facility] ([facility]) [address] [place] [address] Chloride [Moles/Vol] 107 mmol/L Normal 98-107 [facility] Comment on above: Performed By: #### L [id number] #### [facility] ([facility]) [address] [place] [address] CO2 [Moles/Vol] 22 mmol/L Normal 21-31 [facility] Comment on above: Performed By: #### L [id number] #### [facility] ([facility]) [address] [place] [address] Creatinine [Mass/Vol] 3.88 mg/dL High 0.60-1.20 [facility] Comment on above: Performed By: #### L [id number] #### [facility] ([facility]) [address] [place] [address] GLOMERULAR FILTRATION RATE ML/MIN/1.73 SQ M.PREDICTED 11.5 mL/min/1.73m*2 Low >60.0 [facility] Comment on above: Result Comment: The [facility]???s estimated glomerular filtration rate (eGFR) will no longer include consideration of race in its calculation. The National Kidney Foundation???s eGFR Task Force developed new recommendations for the estimation of the glomerular filtration rate in the [place] They recommend immediate implementation of the new equation refit without the race variable in all laboratories because the calculation does not include race. In addition to not including race in the calculation and reporting, it included diversity in its development, and has acceptable performance characteristics and potential consequences that do not disproportionately affect any one group of individuals. Performed By: #### L [id number] #### [facility] ([facility]) [address] [place] [address] Glucose [Mass/Vol] 88 mg/dL Normal 70-100 [facility] Comment on above: Performed By: #### L [id number] #### [facility] ([facility]) [address] [place] [address] Potassium [Moles/Vol] 5.0 mmol/L Normal 3.5-5.1 [facility] Comment on above: Performed By: #### L [id number] #### [facility] ([facility]) [address] [place] [address] Sodium [Moles/Vol] 136 mmol/L Normal 136-145 [facility] Comment on above: Performed By: #### L [id number] #### [facility] ([facility]) [address] [place] [address] Urea nitrogen [Mass/Vol] 81 mg/dL High 7-25 [facility] Comment on above: Performed By: #### L [id number] #### [facility] ([facility]) [address] [place] [address] UREA NITROGEN/CREATININE (MASS RATIO) IN SER/PLAS 20.9 Normal [facility] Comment on above: Performed By: #### L [id number] #### [facility] ([facility]) [address] [place] [address] CBC WITH AUTO DIFFERENTIALon 03-19-2025 Basophils (Bld) [#/Vol] 0.04 10*3/uL Normal 0.00-0.20 [facility] Comment on above: Performed By: #### L [id number] ####[facility] ([facility])[address] [place] [address] Basophils/100 WBC (Bld) 0.7 % Normal 0.0-1.0 [facility] Comment on above: Performed By: #### L [id number] ####[facility] ([facility])[address] [place], [place] [address] Eosinophils (Bld) [#/Vol] 0.24 10*3/uL Normal 0.00-0.50 [facility] Comment on above: Performed By: #### L [id number] ####[facility] ([facility])[address] [place], [place] [address] Eosinophils/100 WBC (Bld) 4.4 % Normal 0.0-6.0 [facility] Comment on above: Performed By: #### L [id number] ####[facility] ([facility])[address] [place] [address] Erythrocyte distribution width (RBC) [Ratio] 16.4 % High 11.5-15.0 [facility] Comment on above: Performed By: #### L [id number] ####[facility] ([facility])[address] [place] [address] ERYTHROCYTE MEAN CORPUSCULAR HEMOGLOBIN CONCENTRATION (G/DL) BY AUTOMATED 33.0 g/dL Normal 32.0-35.0 [facility] Comment on above: Performed By: #### L [id number] ####[facility] ([facility])[address] [place] [address] Hematocrit (Bld) [Volume fraction] 28.8 % Low 36.0-45.0 [facility] Comment on above: Performed By: #### L [id number] ####[facility] ([facility])[address] [place] [address] Hemoglobin (Bld) [Mass/Vol] 9.5 g/dL Low 12.0-15.0 [facility] Comment on above: Performed By: #### L [id number] ####[facility] ([facility])[address] [place] [address] Immature granulocytes (Bld) [#/Vol] 0.02 10*3/uL Normal 0.00-0.20 [facility] Comment on above: Performed By: #### L [id number] ####[facility] ([facility])[address] [place] [address] Immature granulocytes/100 WBC (Bld) 0.4 % Normal 0.0-1.0 [facility] Comment on above: Performed By: #### L [id number] ####[facility] ([facility])[address] [place] [address] Lymphocytes (Bld) [#/Vol] 1.66 10*3/uL Normal 1.20-4.00 [facility] Comment on above: Performed By: #### L [id number] ####[facility] ([facility])[address] [place] [address] Lymphocytes/100 WBC (Bld) 30.6 % Normal 20.0-45.0 [facility] Comment on above: Performed By: #### L [id number] ####[facility] ([facility])[address] [place] [address] MCH (RBC) [Entitic mass] 29.1 pg Normal 27.0-33.0 [facility] Comment on above: Performed By: #### L [id number] ####[facility] ([facility])[address] [place] [address] MCV (RBC) [Entitic vol] 88.1 fL Normal 82.0-98.0 [facility] Comment on above: Performed By: #### L [id number] ####[facility] ([facility])[address] [place] [address] Monocytes (Bld) [#/Vol] 0.56 10*3/uL Normal 0.10-1.00 [facility] Comment on above: Performed By: #### L [id number] ####[facility] ([facility])[address] [place] [address] Monocytes/100 WBC (Bld) 10.3 % Normal 5.0-12.0 [facility] Comment on above: Performed By: #### L [id number] ####[facility] ([facility])[address] [place] [address] Neutrophils (Bld) [#/Vol] 2.91 10*3/uL Normal 1.60-7.60 [facility] Comment on above: Performed By: #### L [id number] ####[facility] ([facility])[address] [place] [address] Neutrophils/100 WBC (Bld) 53.6 % Normal 40.0-72.0 [facility] Comment on above: Performed By: #### L [id number] ####[facility] ([facility])[address] [place] [address] NRBC (PER 100 WBCS) BY AUTOMATED COUNT 0.0 % Normal 0 [facility] Comment on above: Performed By: #### L [id number] ####[facility] ([facility])[address] [place] [address] PLATELETS (10*3/UL) IN BLOOD AUTOMATED COUNT 194 10*3/uL Normal 150-400 [facility] Comment on above: Performed By: #### L [id number] ####[facility] ([facility])[address] [place] [address] RBC (Bld) [#/Vol] 3.27 10*6/uL Low 3.80-5.00 [facility] Comment on above: Performed By: #### L [id number] ####[facility] ([facility])[address] [place] [address] WBC (Bld) [#/Vol] 5.43 10*3/uL Normal 4.00-10.60 [facility] Comment on above: Performed By: #### L [id number] ####[facility] ([facility])[address] [place] [address] URINALYSIS WITH MICROSCOPICo n 03-19-2025 BILIRUBIN, TOTAL PRESENCE IN URINE Negative Normal Negative [facility] Comment on above: Performed By: #### L [id number] #### [facility] ([facility]) [address] [place] [address] Clarity (U) Clear Normal Clear [facility] Comment on above: Performed By: #### L [id number] #### [facility] ([facility]) [address] [place] [address] Color (U) Light-Yellow Normal Colorless, Yellow, Light-[place] ow [facility] Comment on above: Performed By: #### L [id number] #### [facility] ([facility]) [address] [place] [address] GLUCOSE (MG/DL) IN URINE Normal Normal Normal [facility] Comment on above: Performed By: #### L [id number] #### [facility] ([facility]) [address] [place] [address] HEMOGLOBIN PRESENCE IN URINE Negative Normal Negative [facility] Comment on above: Performed By: #### L [id number] #### [facility] ([facility]) [address] [place] [address] Ketones Ql (U) Negative Normal Negative [facility] Comment on above: Performed By: #### L [id number] #### [facility] ([facility]) [address] [place] [address] LEUKOCYTE ESTERASE PRESENCE IN URINE BY TEST STRIP Negative Normal Negative [facility] Comment on above: Performed By: #### L [id number] #### [facility] ([facility]) [address] [place] [address] NITRITE PRESENCE IN URINE Negative Normal Negative [facility] Comment on above: Performed By: #### L [id number] #### [facility] ([facility]) [address] [place] [address] pH (U) 6.0 [pH] Normal 5.0-8.0 [facility] Comment on above: Performed By: #### L [id number] #### [facility] ([facility]) [address] [place] [address] Protein (U) [Mass/Vol] 30 mg/dL Abnormal Negative [facility] on above: Performed By: #### L [id number] #### [facility] ([facility]) [address] [place] [address] RBC (#/HPF) IN URINE SEDIMENT 0-2 Normal None Seen, 0-2 [facility] Comment on above: Performed By: #### L [id number] #### [facility] ([facility]) [address] [place] [address] Specific gravity (U) [Rel density] 1.013 Normal 1.010-1.03 0 [facility] Comment on above: Performed By: #### L [id number] #### [facility] ([facility]) [address] [place] [address] SQUAMOUS EPITHELIAL CELLS (#/LPF) IN URINE SEDIMENT Occasional Normal None Seen, Occasional , Few [facility] Comment on above: Performed By: #### L [id number] #### [facility] ([facility]) [address] [place] [address] UROBILINOGEN (MG/DL) IN URINE Normal Normal Normal [facility] Comment on above: Performed By: #### L [id number] #### [facility] ([facility]) [address] [place] [address] WBC (LEUKOCYTE) (#/HPF) IN URINE SEDIMENT 0-2 Normal None Seen, 0-2 [facility] Comment on above: Performed By: #### L [id number] #### [facility] ([facility]) [address] [place] [address] 30on 03-18-2025 30 The patient is Moder ately Stable - Low risk of patient condition declining or worsening The patient's goals for the shift include rest The clinical goals for the shift include stable vitals Problem: Pain - Adult Goal: Verbalizes/displays adequate comfort level or baseline comfort level Outcome: Progressing Flowsheets (Taken 03/18/2025 2100) Verbalizes/displays adequate comfort level or baseline comfort level: Encourage patient to monitor pain and request assistance Assess pain using appropriate pain scale Problem: Safety - Adult Goal: Free from fall injury Outcome: Progressing Flowsheets (Taken 03/18/20252199) Free from fall injury: Assess patient frequently for physical needs Problem: Skin/Tissue Integrity - Adult Goal: Skin integrity remains intact Outcome: Progressing Flowsheets (Taken 03/18/20252099) Skin integrity remains intact: Monitor for areas of redness and/or skin breakdown Problem: Musculoskeletal - Adult Goal: Return mobility to safest level of function Outcome: Progressing Flowsheets (Taken 03/18/20252099) Return mobility to safest level of function: Assess patient stability and activity tolerance for standing, transferring and ambulating with or without assistive devices Normal [facility] BASIC METABOLIC PANELon 07-0 Anion gap [Moles/Vol] 12 mmol/L Normal 7-20 [facility] Comment on above: Performed By: #### L [id number] #### [facility] ([facility]) [address] [place] [address] Calcium [Mass/Vol] 8.7 mg/dL Normal 8.6-10.3 [facility] Comment on above: Performed By: #### L [id number] #### [facility] ([facility]) [address] [place] [address] Chloride [Moles/Vol] 106 mmol/L Normal 98-107 [facility] Comment on above: Performed By: #### L [id number] #### [facility] ([facility]) [address] [place] [address] CO2 [Moles/Vol] 22 mmol/L Normal 21-31 [facility] Comment on above: Performed By: #### L [id number] #### [facility] ([facility]) [address] [place] [address] Creatinine [Mass/Vol] 3.69 mg/dL High 0.60-1.20 [facility] Comment on above: Performed By: #### L [id number] #### [facility] ([facility]) [address] [place] [address] GLOMERULAR FILTRATION RATE ML/MIN/1.73 SQ M.PREDICTED 12.3 mL/min/1.73m*2 Low >60.0 [facility] Comment on above: Result Comment: The [facility]???s estimated glomerular filtration rate (eGFR) will no longer include consideration of race in its calculation. The National Kidney Foundation???s eGFR Task Force developed new recommendations for the estimation of the glomerular filtration rate in the [place] They recommend immediate implementation of the new equation refit without the race variable in all laboratories because the calculation does not include race. In addition to not including race in the calculation and reporting, it included diversity in its development, and has acceptable performance characteristics and potential consequences that do not disproportionately affect any one group of individuals. Performed By: #### L [id number] #### [facility] ([facility]) [address] [place] [address] Glucose [Mass/Vol] 85 mg/dL Normal 70-100 [facility] Comment on above: Performed By: #### L [id number] #### [facility] ([facility]) [address] [place] [address] Potassium [Moles/Vol] 5.1 mmol/L Normal 3.5-5.1 [facility] Comment on above: Performed By: #### L [id number] #### [facility] ([facility]) [address] [place] [address] Sodium [Moles/Vol] 135 mmol/L Low 136-145 [facility] Comment on above: Performed By: #### L [id number] #### [facility] ([facility]) [address] [place] [address] Urea nitrogen [Mass/Vol] 68 mg/dL High 7-25 [facility] Comment on above: Performed By: #### L [id number] #### [facility] ([facility]) [address] [place] [address] UREA NITROGEN/CREATININE (MASS RATIO) IN SER/PLAS 18.4 Normal [facility] Comment on above: Performed By: #### L [id number] #### [facility] ([facility]) [address] [place] [address] CBC WITH AUTO DIFFERENTIALon 03-18-2025 Basophils (Bld) [#/Vol] 0.04 10*3/uL Normal 0.00-0.20 [facility] Comment on above: Performed By: #### L [id number] #### [facility] ([facility]) [address] [place] [address] Basophils/100 WBC (Bld) 0.7 % Normal 0.0-1.0 [facility] Comment on above: Performed By: #### L [id number] #### [facility] ([facility]) [address] [place] [address] Eosinophils (Bld) [#/Vol] 0.27 10*3/uL Normal 0.00-0.50 [facility] Comment on above: Performed By: #### L [id number] #### [facility] ([facility]) [address] [place] [address] Eosinophils/100 WBC (Bld) 4.9 % Normal 0.0-6.0 [facility] Comment on above: Performed By: #### L [id number] #### [facility] ([facility]) [address] [place] [address] Erythrocyte distribution width (RBC) [Ratio] 16.4 % High 11.5-15.0 [facility] Comment on above: Performed By: #### L [id number] #### [facility] ([facility]) [address] [place] [address] ERYTHROCYTE MEAN CORPUSCULAR HEMOGLOBIN CONCENTRATION (G/DL) BY AUTOMATED 32.5 g/dL Normal 32.0-35.0 [facility] Comment on above: Performed By: #### L [id number] #### [facility] ([facility]) [address] [place] [address] Hematocrit (Bld) [Volume fraction] 29.5 % Low 36.0-45.0 [facility] Comment on above: Performed By: #### L [id number] #### [facility] ([facility]) [address] [place] [address] Hemoglobin (Bld) [Mass/Vol] 9.6 g/dL Low 12.0-15.0 [facility] Comment on above: Performed By: #### L [id number] #### [facility] ([facility]) [address] [place] [address] Immature granulocytes (Bld) [#/Vol] 0.02 10*3/uL Normal 0.00-0.20 [facility] Comment on above: Performed By: #### L [id number] #### [facility] ([facility]) [address] [place] [address] Immature granulocytes/100 WBC (Bld) 0.4 % Normal 0.0-1.0 [facility] Comment on above: Performed By: #### L [id number] #### [facility] ([facility]) [address] [place] [address] Lymphocytes (Bld) [#/Vol] 1.76 10*3/uL Normal 1.20-4.00 [facility] Comment on above: Performed By: #### L [id number] #### [facility] ([facility]) [address] [place] [address] Lymphocytes/100 WBC (Bld) 32.1 % Normal 20.0-45.0 [facility] Comment on above: Performed By: #### L [id number] #### [facility] ([facility]) [address] [place] [address] MCH (RBC) [Entitic mass] 29.3 pg Normal 27.0-33.0 [facility] Comment on above: Performed By: #### L [id number] #### [facility] ([facility]) [address] [place] [address] MCV (RBC) [Entitic vol] 89.9 fL Normal 82.0-98.0 [facility] Comment on above: Performed By: #### L [id number] #### [facility] ([facility]) [address] [place] [address] Monocytes (Bld) [#/Vol] 0.54 10*3/uL Normal 0.10-1.00 [facility] Comment on above: Performed By: #### L [id number] #### [facility] ([facility]) [address] [place] [address] Monocytes/100 WBC (Bld) 9.8 % Normal 5.0-12.0 [facility] Comment on above: Performed By: #### L [id number] #### [facility] ([facility]) [address] [place] [address] Neutrophils (Bld) [#/Vol] 2.86 10*3/uL Normal 1.60-7.60 [facility] Comment on above: Performed By: #### L [id number] #### [facility] ([facility]) [address] [place] [address] Neutrophils/100 WBC (Bld) 52.1 % Normal 40.0-72.0 [facility] Comment on above: Performed By: #### L [id number] #### [facility] ([facility]) [address] [place] [address] NRBC (PER 100 WBCS) BY AUTOMATED COUNT 0.0 % Normal 0 [facility] Comment on above: Performed By: #### L [id number] #### [facility] ([facility]) [address] [place] [address] PLATELETS (10*3/UL) IN BLOOD AUTOMATED COUNT 203 10*3/uL Normal 150-400 [facility] Comment on above: Performed By: #### L [id number] #### [facility] ([facility]) [address] [place] [address] RBC (Bld) [#/Vol] 3.28 10*6/uL Low 3.80-5.00 [facility] Comment on above: Performed By: #### L [id number] #### [facility] ([facility]) [address] [place] [address] WBC (Bld) [#/Vol] 5.49 10*3/uL Normal 4.00-10.60 [facility] Comment on above: Performed By: #### L [id number] #### [facility] ([facility]) [address] [place] [address] POCT GLUCOSE METER UNSOLICIT ED RESULTSon 03-18-2025 Glucose [Mass/Vol] 116 mg/dL High 70-105 [facility] Comment on above: Order Comment: Waive d Testing in the ED is performed under the ED CLIA certificate #[id number]. Result Comment: [email or web address] Performed By: #### L [id number] ####[facility] ([facility])[address] [place] [address] Glucose [Mass/Vol] 130 mg/dL High 70-105 [facility] Comment on above: Order Comment: Waive d Testing in the ED is performed under the ED CLIA certificate #[id number]. Result Comment: [email or web address] Performed By: #### L [id number] #### [facility] ([facility]) [address] [place] [address] Glucose [Mass/Vol] 114 mg/dL High 70-105 [facility] Comment on above: Order Comment: Waive d Testing in the ED is performed under the ED CLIA certificate #[id number]. Result Comment: [email or web address] Performed By: #### L [id number] ####[facility] ([facility])[address] [place] [address] 30on 03-17-2025 30 The patient is Moder ately Stable - Low risk of patient condition declining or worsening The patient's goals for the shift include Comfort, rest The clinical goals for the shift include Stable vitals and labs, comfort, rest, safety Normal [facility] BASIC METABOLIC PANELon 3 Anion gap [Moles/Vol] 11 mmol/L Normal 7-20 [facility] Comment on above: Performed By: #### L [id number] #### [facility] ([facility]) [address] [place] [address] Calcium [Mass/Vol] 8.6 mg/dL Normal 8.6-10.3 [facility] Comment on above: Performed By: #### L [id number] #### [facility] ([facility]) [address] [place] [address] Chloride [Moles/Vol] 106 mmol/L Normal 98-107 [facility] Comment on above: Performed By: #### L [id number] #### [facility] ([facility]) [address] [place] [address] CO2 [Moles/Vol] 23 mmol/L Normal 21-31 [facility] Comment on above: Performed By: #### L [id number] #### [facility] ([facility]) [address] [place] [address] Creatinine [Mass/Vol] 3.61 mg/dL High 0.60-1.20 [facility] Comment on above: Performed By: #### L [id number] #### [facility] ([facility]) [address] [place] [address] GLOMERULAR FILTRATION RATE ML/MIN/1.73 SQ M.PREDICTED 12.6 mL/min/1.73m*2 Low >60.0 [facility] Comment on above: Result Comment: The [facility]???s estimated glomerular filtration rate (eGFR) will no longer include consideration of race in its calculation. The National Kidney Foundation???s eGFR Task Force developed new recommendations for the estimation of the glomerular filtration rate in the [place] They recommend immediate implementation of the new equation refit without the race variable in all laboratories because the calculation does not include race. In addition to not including race in the calculation and reporting, it included diversity in its development, and has acceptable performance characteristics and potential consequences that do not disproportionately affect any one group of individuals. Performed By: #### L [id number] #### [facility] ([facility]) [address] [place] [address] Glucose [Mass/Vol] 91 mg/dL Normal 70-100 [facility] Comment on above: Performed By: #### L [id number] #### [facility] ([facility]) [address] [place] [address] Potassium [Moles/Vol] 5.0 mmol/L Normal 3.5-5.1 [facility] Comment on above: Performed By: #### L [id number] #### [facility] ([facility]) [address] [place] [address] Sodium [Moles/Vol] 135 mmol/L Low 136-145 [facility] Comment on above: Performed By: #### L [id number] #### [facility] ([facility]) [address] [place] [address] Urea nitrogen [Mass/Vol] 61 mg/dL High 7-25 [facility] Comment on above: Performed By: #### L [id number] #### [facility] ([facility]) [address] [place] [address] UREA NITROGEN/CREATININE (MASS RATIO) IN SER/PLAS 16.9 Normal [facility] Comment on above: Performed By: #### L [id number] #### [facility] ([facility]) [address] [place] [address] CBC WITH AUTO DIFFERENTIALon 03-17-2025 Basophils (Bld) [#/Vol] 0.02 10*3/uL Normal 0.00-0.20 [facility] Comment on above: Performed By: #### L [id number] ####[facility] ([facility])[address] [place] [address] Basophils/100 WBC (Bld) 0.3 % Normal 0.0-1.0 [facility] Comment on above: Performed By: #### L [id number] ####[facility] ([facility])[address] [place] [address] Eosinophils (Bld) [#/Vol] 0.21 10*3/uL Normal 0.00-0.50 [facility] Comment on above: Performed By: #### L [id number] ####[facility] ([facility])[address] [place] [address] Eosinophils/100 WBC (Bld) 3.3 % Normal 0.0-6.0 [facility] Comment on above: Performed By: #### L [id number] ####[facility] ([facility])[address] [place] [address] Erythrocyte distribution width (RBC) [Ratio] 16.3 % High 11.5-15.0 [facility] Comment on above: Performed By: #### L [id number] ####[facility] ([facility])[address] [place] [address] ERYTHROCYTE MEAN CORPUSCULAR HEMOGLOBIN CONCENTRATION (G/DL) BY AUTOMATED 33.0 g/dL Normal 32.0-35.0 [facility] Comment on above: Performed By: #### L [id number] ####[facility] ([facility])[address] [place] [address] Hematocrit (Bld) [Volume fraction] 29.7 % Low 36.0-45.0 [facility] Comment on above: Performed By: #### L [id number] ####[facility] ([facility])[address] [place] [address] Hemoglobin (Bld) [Mass/Vol] 9.8 g/dL Low 12.0-15.0 [facility] Comment on above: Performed By: #### L [id number] ####[facility] ([facility])[address] [place] [address] Immature granulocytes (Bld) [#/Vol] 0.02 10*3/uL Normal 0.00-0.20 [facility] Comment on above: Performed By: #### L [id number] ####[facility] ([facility])[address] [place] [address] Immature granulocytes/100 WBC (Bld) 0.3 % Normal 0.0-1.0 [facility] Comment on above: Performed By: #### L [id number] ####[facility] ([facility])[address] [place] [address] Lymphocytes (Bld) [#/Vol] 1.61 10*3/uL Normal 1.20-4.00 [facility] Comment on above: Performed By: #### L [id number] ####[facility] ([facility])[address] [place] [address] Lymphocytes/100 WBC (Bld) 25.6 % Normal 20.0-45.0 [facility] Comment on above: Performed By: #### L [id number] ####[facility] ([facility])[address] [place] [address] MCH (RBC) [Entitic mass] 29.3 pg Normal 27.0-33.0 [facility] Comment on above: Performed By: #### L [id number] ####[facility] ([facility])[address] [place] [address] MCV (RBC) [Entitic vol] 88.7 fL Normal 82.0-98.0 [facility] Comment on above: Performed By: #### L [id number] ####[facility] ([facility])[address] [place] [address] Monocytes (Bld) [#/Vol] 0.58 10*3/uL Normal 0.10-1.00 [facility] Comment on above: Performed By: #### L [id number] ####[facility] ([facility])[address] [place] [address] Monocytes/100 WBC (Bld) 9.2 % Normal 5.0-12.0 [facility] Comment on above: Performed By: #### L [id number] ####[facility] ([facility])[address] [place] [address] Neutrophils (Bld) [#/Vol] 3.85 10*3/uL Normal 1.60-7.60 [facility] Comment on above: Performed By: #### L [id number] ####[facility] ([facility])[address] [place] [address] Neutrophils/100 WBC (Bld) 61.3 % Normal 40.0-72.0 [facility] Comment on above: Performed By: #### L [id number] ####[facility] ([facility])[address] [place] [address] NRBC (PER 100 WBCS) BY AUTOMATED COUNT 0.0 % Normal 0 [facility] Comment on above: Performed By: #### L [id number] ####[facility] ([facility])[address] [place] [address] PLATELETS (10*3/UL) IN BLOOD AUTOMATED COUNT 199 10*3/uL Normal 150-400 [facility] Comment on above: Performed By: #### L [id number] ####[facility] ([facility])[address] [place] [address] RBC (Bld) [#/Vol] 3.35 10*6/uL Low 3.80-5.00 [facility] Comment on above: Performed By: #### L [id number] ####[facility] ([facility])[address] [place] [address] WBC (Bld) [#/Vol] 6.29 10*3/uL Normal 4.00-10.60 [facility] Comment on above: Performed By: #### L [id number] ####[facility] ([facility])[address] [place] [address] CONSULTon 03-17-2025 CONSULT discharge planning: to Home with Home Health Care (therapies) 1015 Patient came to this admission from their private residence [place] the community, where they live alone. - Occupational Therapy Eval 03/14 noting Recommendations: Home OT, Patient is able to return to prior living environment - Physical Therapy Eval 03/14 noting Patient is NOT able to return to prior living environment, additional therapy needed - LDAs tab noting closed skin issues (pelvis, hip) 1210 met with Patient and reviewed discharge planning recommendations - Patient agreeable to mass referral for HHC; referrals sent via [facility] system - Patient agreeable to reviewing printed listing of HHC providers so can provide Agency of Choice once accepting HHC providers found discharge barriers: [] need HHC choices, then accepting [] will need insurance precert for any placement from this admission [] Normal [facility] POCT GLUCOSE METER UNSOLICIT ED RESULTSon 03-17-2025 Glucose [Mass/Vol] 121 mg/dL High 70-105 [facility] [facility] Comment on above: Order Comment: Waive d Testing in the ED is performed under the ED CLIA certificate #[id number]. Result Comment: [email or web address] [email or web address] Performed By: #### L [id number] #### [facility] ([facility]) [address] [place] [address] Glucose [Mass/Vol] 148 mg/dL High 70-105 [facility] Comment on above: Order Comment: Waive d Testing in the ED is performed under the ED CLIA certificate #[id number]. Result Comment: tanmay green Performed By: #### L [id number] #### [facility] ([facility]) [address] [place] [address] Glucose [Mass/Vol] 161 mg/dL High 70-105 [facility] Comment on above: Order Comment: Waive d Testing in the ED is performed under the ED CLIA certificate #[id number]. Result Comment: [email or web address] [email or web address] Performed By: #### L [id number] #### [facility] ([facility]) [address] [place] [address] BASIC METABOLIC PANELon 02-17 Anion gap [Moles/Vol] 10 mmol/L Normal 7-20 [facility] Comment on above: Performed By: #### L [id number] ####[facility] ([facility])[address] [place] [address] Calcium [Mass/Vol] 8.6 mg/dL Normal 8.6-10.3 [facility] Comment on above: Performed By: #### L [id number] ####[facility] ([facility])[address] [place] [address] Chloride [Moles/Vol] 106 mmol/L Normal 98-107 [facility] Comment on above: Performed By: #### L [id number] ####[facility] ([facility])[address] [place] [address] CO2 [Moles/Vol] 23 mmol/L Normal 21-31 [facility] Comment on above: Performed By: #### L [id number] ####[facility] ([facility])[address] [place] [address] Creatinine [Mass/Vol] 3.39 mg/dL High 0.60-1.20 [facility] Comment on above: Performed By: #### L [id number] ####[facility] ([facility])[address] [place] [address] GLOMERULAR FILTRATION RATE ML/MIN/1.73 SQ M.PREDICTED 13.6 mL/min/1.73m*2 Low >60.0 [facility] Comment on above: Result Comment: The [facility]???s estimated glomerular filtration rate (eGFR) will no longer include consideration of race in its calculation. The National Kidney Foundation???s eGFR Task Force developed new recommendations for the estimation of the glomerular filtration rate in the [place] They recommend immediate implementation of the new equation refit without the race variable in all laboratories because the calculation does not include race. In addition to not including race in the calculation and reporting, it included diversity in its development, and has acceptable performance characteristics and potential consequences that do not disproportionately affect any one group of individuals. Performed By: #### L [id number] ####[facility] ([facility])[address] [place] [address] Glucose [Mass/Vol] 101 mg/dL High 70-100 [facility] Comment on above: Performed By: #### L [id number] ####[facility] ([facility])[address] [place] [address] Potassium [Moles/Vol] 4.5 mmol/L Normal 3.5-5.1 [facility] Comment on above: Performed By: #### L [id number] ####[facility] ([facility])[address] [place] [address] Sodium [Moles/Vol] 134 mmol/L Low 136-145 [facility] Comment on above: Performed By: #### L [id number] ####[facility] ([facility])[address] [place] [address] Urea nitrogen [Mass/Vol] 53 mg/dL High 7-25 [facility] Comment on above: Performed By: #### L [id number] ####[facility] ([facility])[address] [place] [address] UREA NITROGEN/CREATININE (MASS RATIO) IN SER/PLAS 15.6 Normal [facility] Comment on above: Performed By: #### L [id number] ####[facility] ([facility])[address] [place] [address] CBC WITH AUTO DIFFERENTIALon 03-16-2025 Basophils (Bld) [#/Vol] 0.03 10*3/uL Normal 0.00-0.20 [facility] Comment on above: Performed By: #### L [id number] #### [facility] ([facility]) [address] [place] [address] Basophils/100 WBC (Bld) 0.6 % Normal 0.0-1.0 [facility] Comment on above: Performed By: #### L [id number] #### [facility] ([facility]) [address] [place] [address] Eosinophils (Bld) [#/Vol] 0.21 10*3/uL Normal 0.00-0.50 [facility] Comment on above: Performed By: #### L [id number] #### [facility] ([facility]) [address] [place] [address] Eosinophils/100 WBC (Bld) 4.0 % Normal 0.0-6.0 [facility] Comment on above: Performed By: #### L [id number] #### [facility] ([facility]) [address] [place] [address] Erythrocyte distribution width (RBC) [Ratio] 16.3 % High 11.5-15.0 [facility] Comment on above: Performed By: #### L [id number] #### [facility] ([facility]) [address] [place] [address] ERYTHROCYTE MEAN CORPUSCULAR HEMOGLOBIN CONCENTRATION (G/DL) BY AUTOMATED 32.9 g/dL Normal 32.0-35.0 [facility] Comment on above: Performed By: #### L [id number] #### [facility] ([facility]) [address] [place] [address] Hematocrit (Bld) [Volume fraction] 31.6 % Low 36.0-45.0 [facility] Comment on above: Performed By: #### L [id number] #### [facility] ([facility]) [address] [place] [address] Hemoglobin (Bld) [Mass/Vol] 10.4 g/dL Low 12.0-15.0 [facility] Comment on above: Performed By: #### L [id number] #### [facility] ([facility]) [address] [place] [address] Immature granulocytes (Bld) [#/Vol] 0.01 10*3/uL Normal 0.00-0.20 [facility] Comment on above: Performed By: #### L [id number] #### [facility] ([facility]) [address] [place] [address] Immature granulocytes/100 WBC (Bld) 0.2 % Normal 0.0-1.0 [facility] Comment on above: Performed By: #### L [id number] #### [facility] ([facility]) [address] [place] [address] Lymphocytes (Bld) [#/Vol] 1.52 10*3/uL Normal 1.20-4.00 [facility] Comment on above: Performed By: #### L [id number] #### [facility] ([facility]) [address] [place] [address] Lymphocytes/100 WBC (Bld) 28.8 % Normal 20.0-45.0 [facility] Comment on above: Performed By: #### L [id number] #### [facility] ([facility]) [address] [place] [address] MCH (RBC) [Entitic mass] 29.5 pg Normal 27.0-33.0 [facility] Comment on above: Performed By: #### L [id number] #### [facility] ([facility]) [address] [place] [address] MCV (RBC) [Entitic vol] 89.5 fL Normal 82.0-98.0 [facility] Comment on above: Performed By: #### L [id number] #### [facility] ([facility]) [address] [place] [address] Monocytes (Bld) [#/Vol] 0.53 10*3/uL Normal 0.10-1.00 [facility] Comment on above: Performed By: #### L [id number] #### [facility] ([facility]) [address] [place] [address] Monocytes/100 WBC (Bld) 10.0 % Normal 5.0-12.0 [facility] Comment on above: Performed By: #### L [id number] #### [facility] ([facility]) [address] [place] [address] Neutrophils (Bld) [#/Vol] 2.98 10*3/uL Normal 1.60-7.60 [facility] Comment on above: Performed By: #### L [id number] #### [facility] ([facility]) [address] [place] [address] Neutrophils/100 WBC (Bld) 56.4 % Normal 40.0-72.0 [facility] Comment on above: Performed By: #### L [id number] #### [facility] ([facility]) [address] [place] [address] NRBC (PER 100 WBCS) BY AUTOMATED COUNT 0.0 % Normal 0 [facility] Comment on above: Performed By: #### L [id number] #### [facility] ([facility]) [address] [place] [address] PLATELETS (10*3/UL) IN BLOOD AUTOMATED COUNT 226 10*3/uL Normal 150-400 [facility] Comment on above: Performed By: #### L [id number] #### [facility] ([facility]) [address] [place] [address] RBC (Bld) [#/Vol] 3.53 10*6/uL Low 3.80-5.00 [facility] Comment on above: Performed By: #### L [id number] #### [facility] ([facility]) [address] [place] [address] WBC (Bld) [#/Vol] 5.28 10*3/uL Normal 4.00-10.60 [facility] Comment on above: Performed By: #### L [id number] #### [facility] ([facility]) [address] [place] [address] POCT GLUCOSE METER UNSOLICIT ED RESULTSon 03-16-2025 Glucose [Mass/Vol] 102 mg/dL Normal 70-105 [facility] Comment on above: Order Comment: Waive d Testing in the ED is performed under the ED CLIA certificate #[id number]. Result Comment: [email or web address] Performed By: #### L [id number] ####[facility] ([facility])[address] [place] [address] Glucose [Mass/Vol] 95 mg/dL Normal 70-105 [facility] Comment on above: Order Comment: Waive d Testing in the ED is performed under the ED CLIA certificate #[id number]. Result Comment: asto neking Performed By: #### L [id number] #### [facility] ([facility]) [address] [place] [address] Glucose [Mass/Vol] 130 mg/dL High 70-105 [facility] Comment on above: Order Comment: Waive d Testing in the ED is performed under the ED CLIA certificate #[id number]. Result Comment: asto neking Performed By: #### L [id number] ####[facility] ([facility])[address] [place] [address] Glucose [Mass/Vol] 102 mg/dL Normal 70-105 [facility] Comment on above: Order Comment: Waive d Testing in the ED is performed under the ED CLIA certificate #[id number]. Result Comment: tanmay green Performed By: #### L [id number] ####[facility] ([facility])[address] [place] [address] BASIC METABOLIC PANELon 06- Anion gap [Moles/Vol] 10 mmol/L Normal 7-20 [facility] Comment on above: Performed By: #### L [id number] #### [facility] ([facility]) [address] [place] [address] Calcium [Mass/Vol] 8.9 mg/dL Normal 8.6-10.3 [facility] Comment on above: Performed By: #### L [id number] #### [facility] ([facility]) [address] [place] [address] Chloride [Moles/Vol] 104 mmol/L Normal 98-107 [facility] Comment on above: Performed By: #### L [id number] #### [facility] ([facility]) [address] [place] [address] CO2 [Moles/Vol] 24 mmol/L Normal 21-31 [facility] Comment on above: Performed By: #### L [id number] #### [facility] ([facility]) [address] [place] [address] Creatinine [Mass/Vol] 3.21 mg/dL High 0.60-1.20 [facility] Comment on above: Performed By: #### L [id number] #### [facility] ([facility]) [address] [place] [address] GLOMERULAR FILTRATION RATE ML/MIN/1.73 SQ M.PREDICTED 14.5 mL/min/1.73m*2 Low >60.0 [facility] Comment on above: Result Comment: [facility]???s estimated glomerular filtration rate (eGFR) will no longer include consideration of race in its calculation. The National Kidney Foundation???s eGFR Task Force developed new recommendations for the estimation of the glomerular filtration rate in the [place] They recommend immediate implementation of the new equation refit without the race variable in all laboratories because the calculation does not include race. In addition to not including race in the calculation and reporting, it included diversity in its development, and has acceptable performance characteristics and potential consequences that do not disproportionately affect any one group of individuals. Performed By: #### L [id number] #### [facility] ([facility]) [address] [place] [address] Glucose [Mass/Vol] 103 mg/dL High 70-100 [facility] Comment on above: Performed By: #### L [id number] #### [facility] ([facility]) [address] [place] [address] Potassium [Moles/Vol] 4.7 mmol/L Normal 3.5-5.1 [facility] Comment on above: Performed By: #### L [id number] #### [facility] ([facility]) [address] [place] [address] Sodium [Moles/Vol] 133 mmol/L Low 136-145 [facility] Comment on above: Performed By: #### L [id number] #### [facility] ([facility]) [address] [place] [address] Urea nitrogen [Mass/Vol] 45 mg/dL High 7-25 [facility] Comment on above: Performed By: #### L [id number] #### [facility] ([facility]) [address] [place] [address] UREA NITROGEN/CREATININE (MASS RATIO) IN SER/PLAS 14.0 Normal [facility] Comment on above: Performed By: #### L [id number] #### [facility] ([facility]) [address] [place] [address] CBC WITH AUTO DIFFERENTIALon 03-15-2025 Basophils (Bld) [#/Vol] 0.05 10*3/uL Normal 0.00-0.20 [facility] Comment on above: Performed By: #### L [id number] #### [facility] ([facility]) [address] [place] [address] Basophils/100 WBC (Bld) 0.8 % Normal 0.0-1.0 [facility] Comment on above: Performed By: #### L [id number] #### [facility] ([facility]) [address] [place] [address] Eosinophils (Bld) [#/Vol] 0.26 10*3/uL Normal 0.00-0.50 [facility] Comment on above: Performed By: #### L [id number] #### [facility] ([facility]) [address] [place] [address] Eosinophils/100 WBC (Bld) 4.1 % Normal 0.0-6.0 [facility] Comment on above: Performed By: #### L [id number] #### [facility] ([facility]) [address] [place] [address] Erythrocyte distribution width (RBC) [Ratio] 16.1 % High 11.5-15.0 [facility] Comment on above: Performed By: #### L [id number] #### [facility] ([facility]) [address] [place] [address] ERYTHROCYTE MEAN CORPUSCULAR HEMOGLOBIN CONCENTRATION (G/DL) BY AUTOMATED 32.8 g/dL Normal 32.0-35.0 [facility] Comment on above: Performed By: #### L [id number] #### [facility] ([facility]) [address] [place] [address] Hematocrit (Bld) [Volume fraction] 34.5 % Low 36.0-45.0 [facility] Comment on above: Performed By: #### L [id number] #### [facility] ([facility]) [address] [place] [address] Hemoglobin (Bld) [Mass/Vol] 11.3 g/dL Low 12.0-15.0 [facility] Comment on above: Performed By: #### L [id number] #### [facility] ([facility]) [address] [place] [address] Immature granulocytes (Bld) [#/Vol] 0.02 10*3/uL Normal 0.00-0.20 [facility] Comment on above: Performed By: #### L [id number] #### [facility] ([facility]) [address] [place] [address] Immature granulocytes/100 WBC (Bld) 0.3 % Normal 0.0-1.0 [facility] Comment on above: Performed By: #### L [id number] #### [facility] ([facility]) [address] [place] [address] Lymphocytes (Bld) [#/Vol] 1.80 10*3/uL Normal 1.20-4.00 [facility] Comment on above: Performed By: #### L [id number] #### [facility] ([facility]) [address] [place] [address] Lymphocytes/100 WBC (Bld) 28.3 % Normal 20.0-45.0 [facility] Comment on above: Performed By: #### L [id number] #### [facility] ([facility]) [address] [place] [address] MCH (RBC) [Entitic mass] 29.0 pg Normal 27.0-33.0 [facility] Comment on above: Performed By: #### L [id number] #### [facility] ([facility]) [address] [place] [address] MCV (RBC) [Entitic vol] 88.5 fL Normal 82.0-98.0 [facility] Comment on above: Performed By: #### L [id number] #### [facility] ([facility]) [address] [place] [address] Monocytes (Bld) [#/Vol] 0.67 10*3/uL Normal 0.10-1.00 [facility] Comment on above: Performed By: #### L [id number] #### [facility] ([facility]) [address] [place] [address] Monocytes/100 WBC (Bld) 10.5 % Normal 5.0-12.0 [facility] Comment on above: Performed By: #### L [id number] #### [facility] ([facility]) [address] [place] [address] Neutrophils (Bld) [#/Vol] 3.57 10*3/uL Normal 1.60-7.60 [facility] Comment on above: Performed By: #### L [id number] #### [facility] ([facility]) [address] [place] [address] Neutrophils/100 WBC (Bld) 56.0 % Normal 40.0-72.0 [facility] Comment on above: Performed By: #### L [id number] #### [facility] ([facility]) [address] [place] [address] NRBC (PER 100 WBCS) BY AUTOMATED COUNT 0.0 % Normal 0 [facility] Comment on above: Performed By: #### L [id number] #### [facility] ([facility]) [address] [place] [address] PLATELETS (10*3/UL) IN BLOOD AUTOMATED COUNT 259 10*3/uL Normal 150-400 [facility] Comment on above: Performed By: #### L [id number] #### [facility] ([facility]) [address] [place] [address] RBC (Bld) [#/Vol] 3.90 10*6/uL Normal 3.80-5.00 [facility] Comment on above: Performed By: #### L [id number] #### [facility] ([facility]) [address] [place] [address] WBC (Bld) [#/Vol] 6.37 10*3/uL Normal 4.00-10.60 [facility] Comment on above: Performed By: #### L [id number] #### [facility] ([facility]) [address] [place] [address] POCT GLUCOSE METER UNSOLICIT ED RESULTSon 03-15-2025 Glucose [Mass/Vol] 107 mg/dL High 70-105 [facility] Comment on above: Order Comment: Waive d Testing in the ED is performed under the ED CLIA certificate #[id number]. Result Comment: lraf tis Performed By: #### L [id number] #### [facility] ([facility]) [address] [place] [address] 30on 03-14-2025 30 The patient is Moder ately Unstable - Medium risk of patient condition declining or worsening The patient's goals for the shift include comfort/rest The clinical goals for the shift include stable vital signs Normal [facility] ALDOSTERONEon 03-14-2025 ALDOSTERONE (NG/DL) IN SER/PLAS 16.7 ng/dL Normal [facility] Comment on above: Order Comment: Travis oscar RN arik and explained the collection process of this test. Retimed for tomorrow morning Result Comment: INTE RPRETIVE INFORMATION: Aldosterone, Serum Reference intervals for age 15 and older: Upright ......... 4.0 - 31.0 ng/dL Supine .......... Less than or equal to 16.0 ng/dL Unspecified ..... Less than or equal to 31.0 ng/dL Normal serum levels of aldosterone are dependent on the sodium intake and whether the patient is upright or supine. High sodium intake will tend to suppress serum aldosterone, whereas low sodium intake will elevate serum aldosterone. The reference intervals for serum aldosterone are based on normal sodium intake. Access complete set of age- and/or gender-specific reference intervals for this test in the [facility] ([employer]). Performed By: [id number] [address] [place] [address] Tavern Car Attendant: Wilfrid Gomez MD, PhD CLIA Number: [id number] Performed By: #### L [id number] #### [facility] ([facility]) [address] [place] [address] BASIC METABOLIC PANELon - Anion gap [Moles/Vol] 12 mmol/L Normal 7-20 [facility] Comment on above: Performed By: #### L [id number] ####[facility] ([facility])[address] [place] [address] Calcium [Mass/Vol] 8.2 mg/dL Low 8.6-10.3 [facility] Comment on above: Performed By: #### L [id number] ####[facility] ([facility])[address] [place] [address] Chloride [Moles/Vol] 104 mmol/L Normal 98-107 [facility] Comment on above: Performed By: #### L [id number] ####[facility] ([facility])[address] [place] [address] CO2 [Moles/Vol] 21 mmol/L Normal 21-31 [facility] Comment on above: Performed By: #### L [id number] ####[facility] ([facility])[address] [place] [address] Creatinine [Mass/Vol] 3.12 mg/dL High 0.60-1.20 [facility] Comment on above: Performed By: #### L [id number] ####[facility] ([facility])[address] [place] [address] GLOMERULAR FILTRATION RATE ML/MIN/1.73 SQ M.PREDICTED 15.0 mL/min/1.73m*2 Low >60.0 [facility] Comment on above: Result Comment: [facility]???s estimated glomerular filtration rate (eGFR) will no longer include consideration of race in its calculation. The National Kidney Foundation???s eGFR Task Force developed new recommendations for the estimation of the glomerular filtration rate in the [place] They recommend immediate implementation of the new equation refit without the race variable in all laboratories because the calculation does not include race. In addition to not including race in the calculation and reporting, it included diversity in its development, and has acceptable performance characteristics and potential consequences that do not disproportionately affect any one group of individuals. Performed By: #### L [id number] ####[facility] ([facility])[address] [place] [address] Glucose [Mass/Vol] 103 mg/dL High 70-100 [facility] Comment on above: Performed By: #### L [id number] ####[facility] ([facility])[address] [place] [address] Potassium [Moles/Vol] 5.0 mmol/L Normal 3.5-5.1 [facility] Comment on above: Performed By: #### L [id number] ####[facility] ([facility])[address] [place] [address] Sodium [Moles/Vol] 132 mmol/L Low 136-145 [facility] Comment on above: Performed By: #### L [id number] ####[facility] ([facility])[address] [place] [address] Urea nitrogen [Mass/Vol] 46 mg/dL High 7-25 [facility] Comment on above: Performed By: #### L [id number] ####[facility] ([facility])[address] [place] [address] UREA NITROGEN/CREATININE (MASS RATIO) IN SER/PLAS 14.7 Normal [facility] Comment on above: Performed By: #### L [id number] ####[facility] ([facility])[address] [place] [address] CBC WITH AUTO DIFFERENTIALon 03-14-2025 Basophils (Bld) [#/Vol] 0.06 10*3/uL Normal 0.00-0.20 [facility] Comment on above: Performed By: #### L [id number] ####[facility] ([facility])[address] [place] [address] Basophils/100 WBC (Bld) 1.1 % High 0.0-1.0 [facility] Comment on above: Performed By: #### L [id number] ####[facility] ([facility])[address] [place] [address] Eosinophils (Bld) [#/Vol] 0.26 10*3/uL Normal 0.00-0.50 [facility] Comment on above: Performed By: #### L [id number] ####[facility] ([facility])[address] [place] [address] Eosinophils/100 WBC (Bld) 4.8 % Normal 0.0-6.0 [facility] Comment on above: Performed By: #### L [id number] ####[facility] ([facility])[address] [place] [address] Erythrocyte distribution width (RBC) [Ratio] 16.4 % High 11.5-15.0 [facility] Comment on above: Performed By: #### L [id number] ####[facility] ([facility])[address] [place] [address] ERYTHROCYTE MEAN CORPUSCULAR HEMOGLOBIN CONCENTRATION (G/DL) BY AUTOMATED 32.2 g/dL Normal 32.0-35.0 [facility] Comment on above: Performed By: #### L [id number] ####[facility] ([facility])[address] [place] [address] Hematocrit (Bld) [Volume fraction] 33.9 % Low 36.0-45.0 [facility] Comment on above: Performed By: #### L [id number] ####[facility] ([facility])[address] [place] [address] Hemoglobin (Bld) [Mass/Vol] 10.9 g/dL Low 12.0-15.0 [facility] Comment on above: Performed By: #### L [id number] ####[facility] ([facility])[address] [place] [address] Immature granulocytes (Bld) [#/Vol] 0.02 10*3/uL Normal 0.00-0.20 [facility] Comment on above: Performed By: #### L [id number] ####[facility] ([facility])[address] [place] [address] Immature granulocytes/100 WBC (Bld) 0.4 % Normal 0.0-1.0 [facility] Comment on above: Performed By: #### L [id number] ####[facility] (BE[facility])[address] [place] [address] Lymphocytes (Bld) [#/Vol] 1.46 10*3/uL Normal 1.20-4.00 [facility] Comment on above: Performed By: #### L [id number] ####[facility] ([facility])[address] [place] [address] Lymphocytes/100 WBC (Bld) 27.1 % Normal 20.0-45.0 [facility] Comment on above: Performed By: #### L [id number] ####[facility] ([facility])[address] [place] [address] MCH (RBC) [Entitic mass] 29.2 pg Normal 27.0-33.0 [facility] Comment on above: Performed By: #### L [id number] ####[facility] ([facility])[address] [place] [address] MCV (RBC) [Entitic vol] 90.9 fL Normal 82.0-98.0 [facility] Comment on above: Performed By: #### L [id number] ####[facility] ([facility])[address] [place] [address] Monocytes (Bld) [#/Vol] 0.63 10*3/uL Normal 0.10-1.00 [facility] Comment on above: Performed By: #### L [id number] ####[facility] ([facility])[address] [place] [address] Monocytes/100 WBC (Bld) 11.7 % Normal 5.0-12.0 [facility] Comment on above: Performed By: #### L [id number] ####[facility] ([facility])[address] [place] [address] Neutrophils (Bld) [#/Vol] 2.96 10*3/uL Normal 1.60-7.60 [facility] Comment on above: Performed By: #### L [id number] ####[facility] ([facility])[address] [place] [address] Neutrophils/100 WBC (Bld) 54.9 % Normal 40.0-72.0 [facility] Comment on above: Performed By: #### L [id number] ####[facility] ([facility])[address] [place] [address] NRBC (PER 100 WBCS) BY AUTOMATED COUNT 0.0 % Normal 0 [facility] Comment on above: Performed By: #### L [id number] ####[facility] ([facility])[address] [place] [address] PLATELETS (10*3/UL) IN BLOOD AUTOMATED COUNT 207 10*3/uL Normal 150-400 [facility] Comment on above: Performed By: #### L [id number] ####[facility] ([facility])[address] [place] [address] RBC (Bld) [#/Vol] 3.73 10*6/uL Low 3.80-5.00 [facility] Comment on above: Performed By: #### L [id number] ####[facility] ([facility])[address] [place] [address] WBC (Bld) [#/Vol] 5.39 10*3/uL Normal 4.00-10.60 [facility] Comment on above: Performed By: #### L [id number] ####[facility] ([facility])[address] [place] [address] POCT GLUCOSE METER UNSOLICIT ED RESULTSon 03-14-2025 Glucose [Mass/Vol] 109 mg/dL High 70-105 [facility] Comment on above: Order Comment: Waive d Testing in the ED is performed under the ED CLIA certificate #[id number]. Result Comment: valerie itn Performed By: #### L [id number] ####[facility] ([facility])[address] [place] [address] Glucose [Mass/Vol] 128 mg/dL High 70-105 [facility] Comment on above: Order Comment: Waive d Testing in the ED is performed under the ED CLIA certificate #[id number]. Result Comment: [email or web address] Performed By: #### L [id number] #### [facility] ([facility]) [address] [place] [address] Glucose [Mass/Vol] 155 mg/dL High 70-105 [facility] Comment on above: Order Comment: Waive d Testing in the ED is performed under the ED CLIA certificate #[id number]. Result Comment: [email or web address] [email or web address] Performed By: #### L [id number] #### [facility] ([facility]) [address] [place] [address] Glucose [Mass/Vol] 109 mg/dL High 70-105 [facility] Comment on above: Order Comment: Waive d Testing in the ED is performed under the ED CLIA certificate #[id number]. Result Comment: [email or web address] [email or web address] Performed By: #### L [id number] #### [facility] ([facility]) [address] [place] [address] RENIN ACTIVITYon 03-14-2025 RENIN ACTIVITY 4.7 ng/mL/hr Normal [facility] Comment on above: Order Comment: Travis oscar RN arik and explained the collection process of this test. Retimed for tomorrow morning Result Comment: INTE RPRETIVE INFORMATION: Renin Activity Adult, Normal sodium diet: Supine ................. 0.2-1.6 ng/mL/hr Upright ................ 0.5-4.0 ng/mL/hr Children, Normal sodium diet, Supine: (1-7 days) ..... 2.0-35.0 ng/mL/hr Cord blood ............. 4.0-32.0 ng/mL/hr 1-12 mos ............... 2.4-37.0 ng/mL/hr 13 mos-3 yrs ........... 1.7-11.2 ng/mL/hr 4-5 yrs ................ 1.0- 6.5 ng/mL/hr 6-10 yrs ............... 0.5- 5.9 ng/mL/hr 11-15 yrs .............. 0.5- 3.3 ng/mL/hr Children, normal sodium diet, Upright: 0-3 yrs ................ Not Available 4-5 yrs ................ Less than or equal to 15 ng/mL/hr 6-10 yrs ............... Less than or equal to 17 ng/mL/hr 11-15 yrs .............. Less than or equal to 16 ng/mL/hr Plasma renin activity measures enzyme ability to convert angiotensinogen to angiotensin I and is limited by the availability of angiotensinogen. Plasma renin activity is not an accurate indicator of enzyme activity when angiotensinogen is decreased. This test was developed and its performance characteristics determined by [facility]. It has not been cleared or approved by the US Food and Drug Administration. This test was performed in a CLIA certified laboratory and is intended for clinical purposes. Performed By: [facility] [address] [place] [address] Tavern Car Attendant: Wilfrid Gomez MD, PhD CLIA Number: [id number] Performed By: #### L [id number] ####[facility] ([facility])[address] [place] [id number] 30on 03-13-2025 30 The patient is Moder ately Stable - Low risk of patient condition declining or worsening The patient's goals for the shift include Rest The clinical goals for the shift include Stable vitals signs and labs, no falls Over the shift, the patient did not make progress toward the following goals. Barriers to progression include education defecit. Recommendations to address these barriers include review treatment plan, education, and assess needs and coordinate with support and continued care. Normal [facility] 30 The patient is Moder ately Stable - Low risk of patient condition declining or worsening The patient's goals for the shift include Rest The clinical goals for the shift include Stable vitals signs and labs, no falls Problem: Pain - Adult Goal: Verbalizes/displays adequate comfort level or baseline comfort level Outcome: Progressing Problem: Safety - Adult Goal: Free from fall injury Outcome: Progressing Problem: Skin/Tissue Integrity - Adult Goal: Skin integrity remains intact Outcome: Progressing Problem: Musculoskeletal - Adult Goal: Return mobility to safest level of function Outcome: Progressing Problem: Metabolic/Fluid and Electrolytes - Adult Goal: Electrolytes maintained within normal limits Outcome: Progressing Goal: Hemodynamic stability and optimal renal function maintained Outcome: Progressing Normal [facility] 30 The patient is Moder ately Stable - Low risk of patient condition declining or worsening The patient's goals for the shift include comfort and sleep The clinical goals for the shift include Stable vital signs, no falls, comfort Normal [facility] BASIC METABOLIC PANELon - Anion gap [Moles/Vol] 11 mmol/L Normal 7-20 [facility] Comment on above: Performed By: #### L [id number] #### [facility] ([facility]) [address] [place] [address] Calcium [Mass/Vol] 8.8 mg/dL Normal 8.6-10.3 [facility] Comment on above: Performed By: #### L [id number] #### [facility] ([facility]) [address] [place] [address] Chloride [Moles/Vol] 106 mmol/L Normal 98-107 [facility] Comment on above: Performed By: #### L [id number] #### [facility] ([facility]) [address] [place] [address] CO2 [Moles/Vol] 25 mmol/L Normal 21-31 [facility] Comment on above: Performed By: #### L [id number] #### [facility] ([facility]) [address] [place] [address] Creatinine [Mass/Vol] 2.41 mg/dL High 0.60-1.20 [facility] Comment on above: Performed By: #### L [id number] #### [facility] ([facility]) [address] [place] [address] GLOMERULAR FILTRATION RATE ML/MIN/1.73 SQ M.PREDICTED 20.4 mL/min/1.73m*2 Low >60.0 [facility] Comment on above: Result Comment: The [facility]???s estimated glomerular filtration rate (eGFR) will no longer include consideration of race in its calculation. The National Kidney Foundation???s eGFR Task Force developed new recommendations for the estimation of the glomerular filtration rate in the [place] They recommend immediate implementation of the new equation refit without the race variable in all laboratories because the calculation does not include race. In addition to not including race in the calculation and reporting, it included diversity in its development, and has acceptable performance characteristics and potential consequences that do not disproportionately affect any one group of individuals. Performed By: #### L [id number] #### [facility] ([facility]) [address] [place] [address] Glucose [Mass/Vol] 82 mg/dL Normal 70-100 [facility] Comment on above: Performed By: #### L [id number] #### [facility] ([facility]) [address] [place] [address] Potassium [Moles/Vol] 3.9 mmol/L Normal 3.5-5.1 [facility] Comment on above: Performed By: #### L [id number] #### [facility] ([facility]) [address] [place] [address] Sodium [Moles/Vol] 138 mmol/L Normal 136-145 [facility] Comment on above: Performed By: #### L [id number] #### [facility] ([facility]) [address] [place] [address] Urea nitrogen [Mass/Vol] 38 mg/dL High 7-25 [facility] Comment on above: Performed By: #### L [id number] #### [facility] ([facility]) [address] [place] [address] UREA NITROGEN/CREATININE (MASS RATIO) IN SER/PLAS 15.8 Normal [facility] Comment on above: Performed By: #### L [id number] #### [facility] ([facility]) [address] [place] [address] CBC WITH AUTO DIFFERENTIALon 03-13-2025 Basophils (Bld) [#/Vol] 0.05 10*3/uL Normal 0.00-0.20 [facility] Comment on above: Performed By: #### L [id number] #### [facility] ([facility]) [address] [place] [address] Basophils/100 WBC (Bld) 1.0 % Normal 0.0-1.0 [facility] Comment on above: Performed By: #### L [id number] #### [facility] ([facility]) [address] [place] [address] Eosinophils (Bld) [#/Vol] 0.14 10*3/uL Normal 0.00-0.50 [facility] Comment on above: Performed By: #### L [id number] #### [facility] ([facility]) [address] [place] [address] Eosinophils/100 WBC (Bld) 2.7 % Normal 0.0-6.0 [facility] Comment on above: Performed By: #### L [id number] #### [facility] ([facility]) [address] [place] [address] Erythrocyte distribution width (RBC) [Ratio] 16.6 % High 11.5-15.0 [facility] Comment on above: Performed By: #### L [id number] #### [facility] ([facility]) [address] [place] [address] ERYTHROCYTE MEAN CORPUSCULAR HEMOGLOBIN CONCENTRATION (G/DL) BY AUTOMATED 32.4 g/dL Normal 32.0-35.0 [facility] Comment on above: Performed By: #### L [id number] #### [facility] ([facility]) [address] [place] [address] Hematocrit (Bld) [Volume fraction] 34.9 % Low 36.0-45.0 [facility] Comment on above: Performed By: #### L [id number] #### [facility] ([facility]) [address] [place] [address] Hemoglobin (Bld) [Mass/Vol] 11.3 g/dL Low 12.0-15.0 [facility] Comment on above: Performed By: #### L [id number] #### [facility] ([facility]) [address] [place] [address] Immature granulocytes (Bld) [#/Vol] 0.01 10*3/uL Normal 0.00-0.20 [facility] Comment on above: Performed By: #### L [id number] #### [facility] ([facility]) [address] [place] [address] Immature granulocytes/100 WBC (Bld) 0.2 % Normal 0.0-1.0 [facility] Comment on above: Performed By: #### L [id number] #### [facility] ([facility]) [address] [place] [address] Lymphocytes (Bld) [#/Vol] 1.51 10*3/uL Normal 1.20-4.00 [facility] Comment on above: Performed By: #### L [id number] #### [facility] ([facility]) [address] [place] [address] Lymphocytes/100 WBC (Bld) 28.8 % Normal 20.0-45.0 [facility] Comment on above: Performed By: #### L [id number] #### [facility] ([facility]) [address] [place] [address] MCH (RBC) [Entitic mass] 29.6 pg Normal 27.0-33.0 [facility] Comment on above: Performed By: #### L [id number] #### [facility] ([facility]) [address] [place] [address] MCV (RBC) [Entitic vol] 91.4 fL Normal 82.0-98.0 [facility] Comment on above: Performed By: #### L [id number] #### [facility] ([facility]) [address] [place] [address] Monocytes (Bld) [#/Vol] 0.71 10*3/uL Normal 0.10-1.00 [facility] Comment on above: Performed By: #### L [id number] #### [facility] ([facility]) [address] [place] [address] Monocytes/100 WBC (Bld) 13.5 % High 5.0-12.0 [facility] Comment on above: Performed By: #### L [id number] #### [facility] ([facility]) [address] [place] [address] Neutrophils (Bld) [#/Vol] 2.82 10*3/uL Normal 1.60-7.60 [facility] Comment on above: Performed By: #### L [id number] #### [facility] ([facility]) [address] [place] [address] Neutrophils/100 WBC (Bld) 53.8 % Normal 40.0-72.0 [facility] Comment on above: Performed By: #### L [id number] #### [facility] ([facility]) [address] [place] [address] NRBC (PER 100 WBCS) BY AUTOMATED COUNT 0.0 % Normal 0 [facility] Comment on above: Performed By: #### L [id number] #### [facility] ([facility]) [address] [place] [address] PLATELETS (10*3/UL) IN BLOOD AUTOMATED COUNT 223 10*3/uL Normal 150-400 [facility] Comment on above: Performed By: #### L [id number] #### [facility] ([facility]) [address] [place] [address] RBC (Bld) [#/Vol] 3.82 10*6/uL Normal 3.80-5.00 [facility] Comment on above: Performed By: #### L [id number] #### [facility] ([facility]) [address] [place] [address] WBC (Bld) [#/Vol] 5.24 10*3/uL Normal 4.00-10.60 [facility] Comment on above: Performed By: #### L [id number] #### [facility] ([place]) [address] [place] [address] CONSULTon 03-13-2025 CONSULT Cardiology Consult N ote Reason for Consult: NSTEMI, hypertensive emergency HPI: Marleni Dennis is a 74 y.o. female past medical history of CAD with CABG (MAJANO to LAD, LISSETH to PDA, radial graft to OM) 1998 s/p stent to left main LAD and mid circumflex 2015, PVD status post bilateral common iliac stenting, hypertension, renal artery stenosis, history of DVT/PE, CKD stage IV, LEE. Transfer from [facility] for management of NSTEMI. Patient gives history that yesterday she was taking a shower and coming out of the bathroom when she felt wobbly and had a fall and hit her head. Patient denies losing consciousness or palpitation. Patient gives history that yesterday she had dry heaves and had not taken her blood pressure medication. Patient denies chest pain or shortness of breath. She was taken to [facility] and was found to have high systolic blood pressure of 250. Troponin was 243-->324-->419. In [place] she got 2 doses of hydralazine and was also started on nitro drip with no improvement in the blood pressure and was given IV labetalol and was transferred to [facility] for suspected NSTEMI. CT brain was negative. Patient denies chest pain, palpitation, syncope. Most recent troponin was 228. Last echo 07/2023 showed EF 55% with grade 1 diastolic dysfunction, possible ASD versus PFO, mild to moderate AR and mild to moderate TR Cardiac meds: Eliquis 2.5, Zetia 10, hydralazine, not taking aspirin and Coreg Cardiology ROS: Review of Systems Constitutional: Negative for chills and fever. Respiratory: Negative for chest tightness and shortness of breath. Cardiovascular: Negative for chest pain and leg swelling. Gastrointestinal: Negative for abdominal distention and abdominal pain. Genitourinary: Negative for dyspareunia and enuresis. Neurological: Negative for dizziness, light-headedness, numbness and headaches. Past Medical History She has a past medical history of PVD (peripheral vascular disease) (05/04/2022). Surgical History She has a past surgical history that includes Cardiac catheterization (02/03/2016); Cholecystectomy; Tonsillectomy; Iliac artery stent (Bilateral, 04/07/2016); Cardiac catheterization (01/07/2016); and Coronary artery bypass graft (10/20/1998). Social History She reports that she has been smoking cigarettes. She has been exposed to tobacco smoke. She has never used smokeless tobacco. She reports that she does not currently use alcohol. She reports that she does not use drugs. Family History Family History[1] Allergies Shellfish derived, Nickel, Iodine, Pneumovax-23 [pneumococcal 23-cruz ps vaccine], Red dye, Yllclpn-ifs-ory reductase inhibitors, and Varenicline Medications Current Outpatient Medications Medication Instructions apixaban (Eliquis) 2.5 mg tablet TAKE 1 TABLET BY MOUTH TWICE A DAY FOR 90 DAYS aspirin 81 mg EC tablet Take 1 tablet every day by oral route. carvedilol (COREG) 25 mg, 2 times daily with meals ezetimibe (Zetia) 10 mg tablet 1 tablet, oral, Daily fenofibrate (Tricor) 145 mg tablet 1 tablet, oral, Daily hydrALAZINE (APRESOLINE) 100 mg, oral, 3 times daily pantoprazole (ProtoNix) 40 mg EC tablet 1 tablet, oral, Daily Prescriptions Prior to Admission[2] Last Recorded Vitals Patient Vitals for the past 24 hrs: BP Temp Temp src Pulse Resp SpO2 Height Weight 03/13/25 1230 112/50 -- -- 64 14 96 % -- -- 03/13/25 1215 (!) 100/43 -- -- 57 19 90 % -- -- 03/13/25 1200 (!) 109/45 -- -- 59 18 90 % -- -- 03/13/25 1145 (!) 107/46 -- -- 59 17 91 % -- -- 03/13/25 1130 (!) 114/45 -- -- 61 18 91 % -- -- 03/13/25 1115 118/54 -- -- 67 13 95 % -- -- 03/13/25 1100 115/50 -- -- 66 13 92 % -- -- 03/13/25 1045 121/58 -- -- 72 14 95 % -- -- 03/13/25 1033 118/58 -- -- 68 14 95 % -- -- 03/13/25 0845 151/66 -- -- 74 17 92 % -- -- 03/13/25 0800 (!) 189/79 36.6 ???C (97.8 ???F) Oral 72 18 91 % -- -- 03/13/25 0448 (!) 194/77 -- -- 69 14 91 % -- -- 03/13/25 0339 -- -- -- 84 -- -- -- -- 03/13/25 0301 (!) 224/82 36.1 ???C (97 ???F) Temporal 77 17 94 % -- -- 03/13/25 0300 (!) [address] -- -- 81 18 94 % -- -- 03/13/25 0201 (!) 217/83 36.1 ???C (97 ???F) Temporal 79 15 96 % -- -- 03/13/25 0114 -- -- -- -- -- -- 1.575 m (5' 2 ) 62.9 kg (138 lb 9.6 oz) Physical Examination: Physical Exam Cardiovascular: Rate and Rhythm: Normal rate and regular rhythm. Pulses: Normal pulses. Pulmonary: Effort: Pulmonary effort is normal. Abdominal: General: Abdomen is flat. Palpations: Abdomen is soft. Musculoskeletal: Right lower leg: No edema. Left lower leg: No edema. Skin: General: Skin is warm. Neurological: General: No focal deficit present. Mental Status: She is alert. Relevant Lab Results Encounter Date: 03/13/25 ECG 12 lead Result Value Ventricular Rate 71 Atrial Rate 71 [place] Interval 158 QRS DURATION 100 QT Interval 464 QTC CALCULATION(BAZETT) 504 P [place] 10 R-[place] 2 T Wave [place] 160 Impression Normal (more content not included)... Normal [facility] CONSULT Nephrology Consult N ote Patient : Marleni Dennis; 74 y.o. Location: 4108/4108-01 Attending: Erickson Cabrera MD Admit Date: 03/13/2025 Hospital Day: 0 Reason for Consult: CKD IV with uncontrolled hypertension. History of Present Illness: Marleni Dennis is a 74 y.o. female who was transferred from [facility] after presenting with weakness after a fall as well as uncontrolled hypertension. She has pertinent past medical history of hypertension secondary to renal artery stenosis, CKD IV, CAD s/p CABG and PCI with stent placement, obstructive sleep apnea. She presented to [place] ER after a fall after showering as she was trying to sit down. At the time, she was noted to have elevated blood pressure with systolic of 250 mmHg. She was also noted to have elevated troponin. After receiving 2 doses of hydralazine, her blood pressures were persistently elevated. She is currently on nicardipine infusion 2-75 mL/hr. She does not regularly follow up with a set up machinist. She says she has a water pill that she takes as needed, but does not recall the last time she took a dose. She also mentions that she did not take her blood pressure medications yesterday. Her BUN is 38 and creatinine is 2.41. Remaining electrolytes are within normal limits. Review of Systems: Review of Systems Constitutional: Positive for unexpected weight change. Negative for chills and fatigue. Respiratory: Negative for shortness of breath. Cardiovascular: Negative for chest pain. Gastrointestinal: Negative for abdominal distention and abdominal pain. Neurological: Negative for dizziness and headaches. Input/Output: I/O last 3 completed shifts: In: 350 (5.6 mL/kg) [P.O.:350] Out: 150 (2.4 mL/kg) [Urine:150 (0.1 mL/kg/hr)] Weight: 62.9 kg Vital Signs: Temperature: Temp: 36.6 ???C (97.8 ???F) TMax: Temp (24hrs), Av.3 ???C (97.3 ???F), Min:36.1 ???C (97 ???F), Max:36.6 ???C (97.8 ???F) Respirations: Resp: 14 Pulse: Heart Rate: 64 BP: BP: 112/50 BP Range: Systolic (24hrs), Av , Min:100 , Max:224 Diastolic (24hrs), Av, Min:43, Max:83 Wt Readings from Last 3 Encounters: 03/13/25 62.9 kg (138 lb 9.6 oz) 04/24/24 78.9 kg (174 lb) 10/11/23 81.2 kg (179 lb) Physical Examination: Physical Exam Constitutional: General: She is not in acute distress. Appearance: She is not diaphoretic. HENT: Head: Normocephalic and atraumatic. Cardiovascular: Heart sounds: Normal heart sounds. Pulmonary: Effort: No respiratory distress. Breath sounds: Normal breath sounds. Abdominal: General: There is no distension. Tenderness: There is no abdominal tenderness. Musculoskeletal: General: No swelling. Cervical back: Neck supple. Skin: General: Skin is warm. Coloration: Skin is not jaundiced. Findings: No erythema. Neurological: Mental Status: She is alert. Labs: Chemistry: Lab Results Component Value Date NA 138 03/13/2025 K 3.9 03/13/2025 CL 106 03/13/2025 CO2 25 03/13/2025 ANIONGAP 11 03/13/2025 BUN 38 (H) 03/13/2025 CREATININE 2.41 (H) 03/13/2025 EGFR 20.4 (L) 03/13/2025 CALCIUM 8.8 03/13/2025 MG 1.2 (L) 03/13/2025 Hematology & Iron studies: Lab Results Component Value Date WBC 5.24 03/13/2025 HGB 11.3 (L) 03/13/2025 HCT 34.9 (L) 03/13/2025 MCV 91.4 03/13/2025 PLT 223 03/13/2025 Urine chemistry: No results found for: PROTUR , CREATUR , MICROALBCREA , ALBCREA , ALBUMINUR , NAUR , UREAUR , KURINE , CLUR , MGUR Urinalysis & Microscopy: No results found for: COLORU , CLARITYU , SPECGRAVU , MATHEUS , PROTUR , LEUKOCYTESU , NITRITEU , GLUCOSEU , KETONESU , BILIRUBINUR , UROBILINOGEN , BLOODU , RBCU , WBCU , SQUAMEPIU , MUCUSU , TRIPHOCRYU , CAOXALCRU , CAPHOSCRYU Urine Eosinophils: No components found for: UEOS Serology & Other labs: BNP: No results found for: BNP MANUEL: No results found for: MANUEL SPEP:No results found for: PROT UPEP: No components found for: LABPE C3: No results found for: C3 C4: No results found for: C4 MPO ANCA: No components found for: MPO PR3 ANCA: No components found for: PR3 Anti-GBM: No components found for: GBMABIGG Hep BsAg: No results found for: HEPBSAG Hep C AB: No results found for: HEPCAB Outpatient Medications & Allergies: Medication Documentation Review Audit Reviewed by Gena Ellis RN (Registered Nurse) on 03/13/25 at 0140 Medication Order Taking? Sig Documenting Provider Last Dose Status apixaban (Eliquis) 2.5 mg tablet [id number] TAKE 1 TABLET BY MOUTH TWICE A DAY FOR 90 DAYS Historical Provider, Active aspirin 81 mg EC tablet [id number] Take 1 tablet every day by oral route. Historical Provider, Flag for Review buPROPion (Wellbutrin) 75 mg tablet [id number] Yes Take 75 mg by mouth twice a day. Historical Provider, Active carvedilol (Coreg) 12.5 mg tablet [id number] No Take 25 mg by mouth with breakfast and with eveni (more content not included)... Normal [facility] CORTISOLon 03-13-2025 CORTISOL (UG/DL) IN SER/PLAS 8.8 ug/dL Normal - [facility] Comment on above: Performed By: #### L [id number] ####[facility] ([facility])[address] [place] [address] HIGH SENSITIVITY TROPONIN Io n 03-13-2025 HS TROPONIN I (NG/L) 215 ng/L Critically high <15 [facility] Comment on above: Performed By: #### L [id number] #### [facility] ([facility]) [address] [place] [address] HS TROPONIN I (NG/L) 223 ng/L Critically high <15 [facility] Comment on above: Performed By: #### L [id number] ####[facility] ([facility])[address] [place] [address] HS TROPONIN I (NG/L) 228 ng/L Critically high <15 [facility] Comment on above: Performed By: #### L [id number] #### [facility] ([facility]) [address] [place] [address] MAGNESIUMon 03-13-2025 Magnesium [Mass/Vol] 2.8 mg/dL High 1.9-2.7 [facility] Comment on above: Performed By: #### L [id number] #### [facility] ([facility]) [address] [place] [address] Magnesium [Mass/Vol] 1.2 mg/dL Low 1.9-2.7 [facility] Comment on above: Performed By: #### L [id number] #### [facility] ([facility]) [address] [place] [address] NURSNOTEon 03-13-2025 NURSNOTE Fasting blood glucos e is 79 mg/dl. Requesting ID band from registration. Orders noted, diet and water provided to patient. Will review BP and pain to patient's right head with on-call provider. Normal [facility] POCT GLUCOSE METER UNSOLICIT ED RESULTSon 03-13-2025 Glucose [Mass/Vol] 128 mg/dL High 70-105 [facility] Comment on above: Order Comment: Waive d Testing in the ED is performed under the ED CLIA certificate #[id number]. Result Comment: [email or web address] Performed By: #### L [id number] ####[facility] ([facility])[address] [place] [address] Glucose [Mass/Vol] 133 mg/dL High 70-105 [facility] Comment on above: Order Comment: Waive d Testing in the ED is performed under the ED CLIA certificate #[id number]. Result Comment: abor [email or web address] Performed By: #### L [id number] ####[facility] ([facility])[address] [facility] [place] [address] Glucose [Mass/Vol] 172 mg/dL High 70-105 [facility] Comment on above: Order Comment: Waive d Testing in the ED is performed under the ED CLIA certificate #[id number]. Result Comment: [email or web address] [email or web address] Performed By: #### L [id number] ####[facility] ([facility])[address] [place] [address] Glucose [Mass/Vol] 136 mg/dL High 70-105 [facility] Comment on above: Order Comment: Waive d Testing in the ED is performed under the ED CLIA certificate #[id number]. Result Comment: [email or web address] [email or web address] Performed By: #### L [id number] #### [facility] ([facility]) [address] [place] [address] Glucose [Mass/Vol] 81 mg/dL Normal 70-105 [facility] Comment on above: Order Comment: Waive d Testing in the ED is performed under the ED CLIA certificate #[id number]. Result Comment: [email or web address] [email or web address] Performed By: #### L [id number] #### [facility] ([facility]) [address] [place] [address] T4, FREEon 03-13-2025 THYROXINE (T4) FREE (NG/DL) IN SER/PLAS 1.23 ng/dL Normal 0.71-1.85 [facility] Comment on above: Performed By: #### L [id number] #### [facility] ([facility]) [address] [place] [address] TSH3 REFLEX TO FT4on 025 THYROTROPIN (MIU/L) IN SER/PLAS BY DETECTION LIMIT <= 0.05 MIU/L 6.01 mIU/L High 0.34-5.60 [facility] Comment on above: Performed By: #### L [id number] #### [facility] ([facility]) [address] [place] [address] CBC (INCLUDES DIFF/PLT)on Basophils (Bld) [#/Vol] 0.042 10*3/uL Normal 0-200 [facility] Comment on above: Performed By: #### 1 0231, 6399, 31844, 899, 7600 #### [facility] [address], [address] [place] [address] Orthotist: Figueroa Jacques MD Basophils/100 WBC (Bld) 0.8 % Normal [facility] Comment on above: Performed By: #### 1 0231, 6399, 35938, 899, 7600 #### [facility] [place] [address] Orthotist: Figueroa Jacques MD Eosinophils (Bld) [#/Vol] 0.25 10*3/uL Normal 15-500 [facility] Comment on above: Performed By: #### 1 0231, 6399, 10491, 899, 7600 #### [facility] [place] [address] Orthotist: Figueroa Jacques MD Eosinophils/100 WBC (Bld) 4.8 % Normal [facility] Comment on above: Performed By: #### 1 0231, 6399, 11078, 899, 7600 #### [facility] of [place] [address] Orthotist: Figueroa Jacques MD Erythrocyte distribution width (RBC) [Ratio] 14.8 % Normal 11.0-15.0 [facility] Comment on above: Performed By: #### 1 0231, 6399, 86893, 899, 7600 #### [facility] [place] [address] Orthotist: Figueroa Jacques MD Hematocrit (Bld) [Volume fraction] 36.8 % Normal 35.0-45.0 [facility] Comment on above: Performed By: #### 1 0231, 6399, 36586, 899, 7600 #### [facility] of [place] [address] Orthotist: Figueroa Jacques MD Hemoglobin (Bld) [Mass/Vol] 11.9 g/dL Normal 11.7-15.5 [facility] Comment on above: Performed By: #### 1 0231, 6399, 46562, 899, 7600 #### [facility] [place] [address] Orthotist: Figueroa Jacques MD Lymphocytes (Bld) [#/Vol] 1.737 10*3/uL Normal 850-3900 [facility] Comment on above: Performed By: #### 1 0231, 6399, 72331, 899, 7600 #### [facility] [place] [address] Orthotist: Figueroa Jacques MD Lymphocytes/100 WBC (Bld) 33.4 % Normal [facility] Comment on above: Performed By: #### 1 0231, 6399, 16216, 899, 7600 #### [facility] [place] [address] Orthotist: Figueroa Jacques MD MCH (RBC) [Entitic mass] 28.7 pg Normal 27.0-33.0 [facility] Comment on above: Performed By: #### 1 0231, 6399, 10785, 899, 7600 #### [facility] of [place] [address] Orthotist: Figueroa Jacques MD MCHC (RBC) [Mass/Vol] 32.3 g/dL Normal 32.0-36.[address] [facility] Comment on above: Result Comment: For adults, a slight decrease in the calculated MCHC value (in the range of 30 to 32 g/dL) is most likely not clinically significant; however, it should be interpreted with caution in correlation with other red cell parameters and the patient's clinical condition. Performed By: #### 1 0231, 6399, 54654, 899, 7600 #### [facility] [place] [address] Orthotist: Figueroa Jacques MD MCV (RBC) [Entitic vol] 88.7 fL Normal 80.0-100.0 [facility] Comment on above: Performed By: #### 1 0231, 6399, 10619, 899, 7600 #### [facility] [address] [place] [address] Orthotist: Figueroa Jacques MD Monocytes (Bld) [#/Vol] 0.51 10*3/uL Normal 200-950 [facility] Comment on above: Performed By: #### 1 0231, 6399, 99343, 899, 7600 #### [facility] [place] [address] Orthotist: Figueroa Jacques MD Monocytes/100 WBC (Bld) 9.8 % Normal [facility] Comment on above: Performed By: #### 1 0231, 6399, 90317, 899, 7600 #### [facility] [place] [address] Orthotist: Figueroa Jacques MD Neutrophils (Bld) [#/Vol] 2.662 10*3/uL Normal 9707-3877 [facility] Comment on above: Performed By: #### 1 0231, 6399, 40764, 899, 7600 #### [facility] [place] [address] Orthotist: Figueroa Jacques MD Neutrophils/100 WBC (Bld) 51.2 % Normal [facility] Comment on above: Performed By: #### 1 0231, 6399, 55932, 899, 7600 #### [facility] [place] [address] Orthotist: Figueroa Jacques MD Platelet mean volume (Bld) [Entitic vol] 10.6 fL Normal 7.5-12.5 [facility] Comment on above: Performed By: #### 1 0231, 6399, 48296, 899, 7600 #### [facility] [place] [address] Orthotist: Figueroa Jacques MD Platelets (Bld) [#/Vol] 205 10*3/uL Normal 140-400 [facility] Comment on above: Performed By: #### 1 0231, 6399, 84886, 899, 7600 #### [facility] of [address], [address] [place] [address] Orthotist: Figueroa Jacques MD RBC (Bld) [#/Vol] 4.15 10*6/uL Normal 3.80-5.10 [facility] Comment on above: Performed By: #### 1 0231, 6399, 57570, 899, 7600 #### [facility] of [address], [address] [place] [address] Orthotist: Figueroa Jacques MD WBC (Bld) [#/Vol] 5.2 10*3/uL Normal 3.8-10.8 [facility] Comment on above: Performed By: #### 1 0231, 6399, 63428, 899, 7600 #### [facility] of [address], [address] [place] [address] Orthotist: Figueroa Jacques MD [facility] 01-02-2025 Albumin [Mass/Vol] 3.9 g/dL Normal 3.6-5.1 [facility] Comment on above: Performed By: #### 1 0231, 6399, 22065, 899, 7600 #### [facility] [place] [address] Orthotist: Figueroa Jacques MD Albumin/Globulin [Mass ratio] 1.5 {ratio} Normal 1.0-2.5 [facility] Comment on above: Performed By: #### 1 0231, 6399, 01724, 899, 7600 #### [facility] [place] [address] Orthotist: Figueroa Jacquse MD ALP [Catalytic activity/Vol] 45 U/L Normal 37-153 [facility] Comment on above: Performed By: #### 1 0231, 6399, 31537, 899, 7600 #### [facility] [place] [address] Orthotist: Figueroa Jacques MD ALT [Catalytic activity/Vol] 4 U/L Low 6-29 [facility] Comment on above: Performed By: #### 1 0231, 6399, 82531, 899, 7600 #### [facility] [place] [address] Orthotist: Figueroa Jacques MD AST [Catalytic activity/Vol] 14 U/L Normal 10-35 [facility] Comment on above: Performed By: #### 1 0231, 6399, 57877, 899, 7600 #### [facility] [place] [address] Orthotist: Figueroa Jacques MD Bilirubin [Mass/Vol] 0.6 mg/dL Normal 0.2-1.2 [facility] Comment on above: Performed By: #### 1 0231, 6399, 24431, 899, 7600 #### [facility] [place] [address] Orthotist: Figueroa Jacques MD Calcium [Mass/Vol] 9.2 mg/dL Normal 8.6-10.4 [facility] Comment on above: Performed By: #### 1 0231, 6399, 80453, 899, 7600 #### [facility] [place] [address] Orthotist: Figueroa Jacques MD Chloride [Moles/Vol] 108 mmol/L Normal 98-110 [facility] Comment on above: Performed By: #### 1 0231, 6399, 30108, 899, 7600 #### [facility] [place] [address] Orthotist: Figueroa Jacques MD CO2 [Moles/Vol] 24 mmol/L Normal 20-32 [facility] Comment on above: Performed By: #### 1 0231, 6399, 73908, 899, 7600 #### [facility] [place] [address] Orthotist: Figueroa Jacques MD Creatinine [Mass/Vol] 2.01 mg/dL High 0.60-1.[address] [facility] Comment on above: Performed By: #### 1 0231, 6399, 16829, 899, 7600 #### [facility] [address], [address] [place] [address] Orthotist: Figueroa Jacques MD GFR/1.73 sq M.predicted among non-blacks MDRD (S/P/Bld) [Vol rate/Area] 25 mL/min/{1.73_m2} Low > OR = 60 [facility] Comment on above: Performed By: #### 1 0231, 6399, 37363, 89, 7600 #### [facility] [place] [address] Orthotist: Figueroa Jacques MD Globulin (S) [Mass/Vol] 2.6 g/dL Normal 1.9-3.7 [facility] Comment on above: Performed By: #### 1 0231, 63, 08518, 89, 7600 #### [facility] [address], [address] [place] [address] Orthotist: Figueroa Jacques MD Glucose [Mass/Vol] 103 mg/dL High 65-99 [facility] Comment on above: Result Comment: Fasting reference interval For someone without known diabetes, a glucose value between 100 and 125 mg/dL is consistent with prediabetes and should be confirmed with a follow-up test. Performed By: #### 1 0231, 63, 80851, 899, 7600 #### [facility] [place] [address] Orthotist: Figueroa Jacques MD Potassium [Moles/Vol] 4.4 mmol/L Normal 3.5-5.[address] [facility] Comment on above: Performed By: #### 1 0231, 6399, 10140, 899, 7600 #### [facility] [place] [address] Orthotist: Figueroa Jacques MD Protein [Mass/Vol] 6.5 g/dL Normal 6.1-8.1 [facility] Comment on above: Performed By: #### 1 0231, 6399, 28202, 899, 7600 #### [facility] of [address], [address] [place] [address] Orthotist: Figueroa Jacques MD Sodium [Moles/Vol] 141 mmol/L Normal 135-146 [facility] Comment on above: Performed By: #### 1 0231, 6399, 08221, 899, 7600 #### [facility] of [address], [address] [place] [address] Orthotist: Figueroa Jacques MD Urea nitrogen [Mass/Vol] 27 mg/dL High 7-25 [facility] Comment on above: Performed By: #### 1 0231, 6399, 73100, 899, 7600 #### [facility] of [address], [address] [place] [address] Orthotist: Figueroa Jacques MD Urea nitrogen/Creatinine [Mass ratio] 13 mg/mg Normal 6-22 [facility] Comment on above: Performed By: #### 1 0231, 6399, 21901, 899, 7600 #### [facility] [place] [address] Orthotist: Figueroa Jacques MD LIPID PANEL, [facility] 12-17 Cholesterol [Mass/Vol] 138 mg/dL Normal <200 [facility] Comment on above: Order Comment: FASTI NG:YES FASTING: YES Performed By: #### 1 0231, 6399, 44885, 899, 7600 #### [facility] of [address], [address] [place] [address] Orthotist: Figueroa Jacques MD Cholesterol in HDL [Mass/Vol] 37 mg/dL Low > OR = 50 [facility] Comment on above: Order Comment: FASTI NG:YES FASTING: YES Performed By: #### 1 0231, 6399, 83179, 899, 7600 #### [facility] of [address], [address] [place] [address] Orthotist: Figueroa Jacques MD Cholesterol in LDL [Mass/Vol] 76 mg/dL Normal [facility] Comment on above: Order Comment: FASTI NG:YES FASTING: YES Result Comment: Refe rence range: <100 Desirable range <100 mg/dL for primary prevention; <70 mg/dL for patients with CHD or diabetic patients with > or = 2 CHD risk factors. LDL-C is now calculated using the Jose calculation, which is a validated novel method providing better accuracy than the Friedewald equation in the estimation of LDL-C. Andres SS et al. NICOLE. 2013;310(19): 5388-2932 (http://education.[employer]/faq/FUV786) Performed By: #### 1 0231, 6399, 64232, 899, 7600 #### [facility] [address], [address] [place] [address] Orthotist: Figueroa Jacques MD Cholesterol.total/Chol esterol in HDL [Mass ratio] 3.7 {ratio} Normal <5.0 [facility] Comment on above: Order Comment: FASTI NG:YES FASTING: YES Performed By: #### 1 0231, 6399, 28682, 899, 7600 #### [facility] [address], [address] [place] [address] Orthotist: Figueroa Jacques MD NON HDL CHOLESTEROL 101 mg/dL (calc) Normal <130 [facility] Comment on above: Order Comment: FASTI NG:YES FASTING: YES Result Comment: For patients with diabetes plus 1 major ASCVD risk factor, treating to a non-HDL-C goal of <100 mg/dL (LDL-C of <70 mg/dL) is considered a therapeutic option. Performed By: #### 1 0231, 6399, 62776, 899, 7600 #### [facility] [address], [address] [place], [place] [id number] Orthotist: Figueroa Jacques MD Triglyceride [Mass/Vol] 153 mg/dL High <150 [facility] Comment on above: Order Comment: FASTI NG:YES FASTING: YES Performed By: #### 1 0231, 6399, 92498, 899, 7600 #### [facility] [address], [address] [place] [address] Orthotist: Figueroa Jacques MD T3, 01-02-2025 Free T3 [Mass/Vol] 2.7 pg/mL Normal 2.3-4.2 [facility] Comment on above: Performed By: #### 1 0231, 6399, 16120, 899, 7600 #### [facility] [place] [address] Orthotist: Figueroa Jacques MD T4, 01-02-2025 Free T4 [Mass/Vol] 1.2 ng/dL Normal 0.8-1.8 [facility] Comment on above: Performed By: #### 1 0231, 6399, 49892, 899, 6260 #### [facility] [place] [address] Orthotist: Figueroa Jacques MD TSHon 01-02-2025 TSH Qn 3.82 m[IU]/L Normal 0.40-4.50 [facility] Comment on above: Performed By: #### 1 0231, 6399, 61564, 899, 8670 #### [facility] [place] [address] Orthotist: Figueroa Jacques MD Laboratory - Hematology and Cell countson 12-12-2024 HbA1c (Bld) [Mass fraction] 5 % [facility] No Panel Informationon 12-12 [facility] Ambulatory Visit Summaryon 0 11-18-2024 Ambulatory Visit Summary Ambulatory Visit Summary MARLENI DENNIS Nigel :1950 Visit Date:11/18/2024 Ambulatory Visit Instructions Your Diagnosis Kidney lesion Urge incontinence 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 Your Care Team Attending Physician - RONALD BEAULIEU, Alfredo Moya Primary Care Physician - SIN BEAULIEU, JACK Boudreaux This Is Your Medications List mirabegron (mirabegron 50 mg oral tablet, extended release) Contact prescribing physician if questions or concerns NIFEdipine (NIFEdipine (Eqv-Procardia XL) 90 mg oral tablet, extended release) apixaban (Eliquis 2.5 mg oral tablet) aspirin (aspirin 81 mg Oral EC Tab) carvedilol (carvedilol 12.5 mg Tab) clonidine (cloNIDine 0.1 mg tab) duloxetine (DULoxetine 30 mg Cap-EC) duloxetine (DULoxetine 60 mg Cap-EC) ezetimibe (ezetimibe 10 mg Tab) hydrALAZINE (hydrALAZINE 25 mg Tab) isosorbide mononitrate (isosorbide mononitrate 60 mg ER Tab) isosorbide mononitrate (isosorbide mononitrate 60 mg ER Tab) meloxicam (meloxicam 15 mg Tab) metoprolol (Metoprolol tartrate 50 mg Tab) nitroglycerin (nitroglycerin 0.4 mg SubL [place]) pantoprazole (Pantoprazole [address] Tab) pregabalin (pregabalin 75 mg Cap) tizanidine (tiZANidine 4 mg Tab) valsartan (valsartan 320 mg Tab) zolpidem (zolpidem 10 mg oral tablet) [Image Removed: STOP]Stop taking these medications oxybutynin (oxybutynin 10 mg ER Tab) Procedures Performed Cholecystectomy, Colonoscopy, Procedure on back, Tonsillectomy. Discharge Vitals Temperature (Temporal Artery) 37 ???C Heart Rate (Peripheral) 70 Respiratory Rate 16 Blood Pressure 135/75 Height 163 cm Height 64 in Weight 74.1 kg Weight 163.362 lb BMI 27.89 What to do next Scheduled Follow-Up Appointments Monday2025 1:15 PM EDT With: Alfredo CARDENAS MD Where: [facility] [address] [place] [address]- You Need to Schedule the Following Appointments Follow Up with Alfredo CARDENAS MD, URL When: Where: [facility] [address] , [place] [address]- [phone] Medications What How Much When Instructions New mirabegron (mirabegron 50 mg oral tablet, extended release) 1 Tablets By Mouth Every day Refills: 11 Pickup at [facility]/pharmacy #[id number] Unchanged apixaban (Eliquis 2.5 mg oral tablet) Contact prescribing physician if questions or concerns Unchanged aspirin (aspirin 81 mg Oral EC Tab) By Mouth Every day Contact prescribing physician if questions or concerns Unchanged carvedilol (carvedilol 12.5 mg Tab) Contact prescribing physician if questions or concerns Unchanged clonidine (cloNIDine 0.1 mg tab) 1 Tablets Contact prescribing physician if questions or concerns [...] prescribing physician if questions or concerns Unchanged meloxicam (meloxicam 15 mg Tab) 1 Tablets Contact prescribing physician if questions or concerns Unchanged metoprolol (Metoprolol tartrate 50 mg Tab) Contact prescribing physician if questions or concerns Unchanged NIFEdipine (NIFEdipine (Eqv-Procardia XL) 90 mg oral tablet, extended release) Contact prescribing physician if questions or concerns Unchanged nitroglycerin (nitroglycerin 0.4 mg SubL [place]) Sublingual Every 5 minutes Contact prescribing physician [...] physician if questions or concerns Pharmacy Information [facility]/pharmacy #[id number]: [address], [place] [id number] [phone] What How Much When Comments Stop Taking oxybutynin (oxybutynin 10 mg ER Tab) 1 Tablets By Mouth Every day Allergies iodine (Rash) shellfish (Unknown) statins (Unknown) Problems Ongoing - Any problem that you are currently receiving treatment for. 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 Kidney lesion Osteoporosis Urge incontinence Historical - Any problem that you are no longer receiving treatment for. Heart disease Hyperlipidem (more content not included)... Normal [facility] Reminderson 11-18-2024 Reminders Reminders From: Pati Akins To: EU - Recallnicholas Cardenas; Sent: 11/18/2024 14:29:07 EST Show up: 09/18/2025 14:28:00 EST Subject: MRI of ABD Due Date/Time: 10/13/2025 14:28:00 EST Reminder/Recall Patient is due for ABD MRI w contrast prior to November 2025 appt/ attn kidneys Pt uses [facility] Normal [facility] Urology Office/Clinic Noteon 11-18-2024 Urology Office/Clinic Note Urology Office/Clinic Note Chief Complaint 6 month f/u with MRI HPI Staff 73yr old female pt here for 5mo f/u with MRI. MRI and labs completed 09/13/24. Previous Dx: urge incontinence, kidney lesion, anticoagulated *oxybutynin 10mg ER qd Dysuria: denies Incomplete bladder emptying: denies Hematuria: denies Frequency: every couple of hours during the day Urgency: Pt states that if she waits a few minutes after the urge, when she stands up she will start urinating and can not stop Nocturia: denies Stream: denies straining Leaking: not usually an issue unless she tries to hold it Post void dripping: denies Wearing pads/ Depends: wears pads and changes at the least 1x daily Urge incontinence: states that if she holds it after the urge she will urinate when she stands Stress incontinence: with a hard cough Incontinence without Sensory Awareness: denies Abdominal pain: denies Flank pain: denies Sexual complaints: denies History of Present Illness Tests reviewed: reviewed UA, MRI I have reviewed the previous health record information and history for this patient from Maria Luisa Thomson NP. I have reviewed and verified the staff [...] See HPI. Physical Exam Vitals & Measurements T: 37 ???C(Temporal Artery) HR: 70(Peripheral) RR: 16 BP: 135/75 HT: 64 in HT: 163 cm WT: 74.1 kg WT: 163.362 lb BMI: 27.89 General Appearance: alert , no acute distress, well nourished, well developed female. Assessment/Plan 1. Kidney lesion (N28.9: Disorder of [...] within posterior cortex measures 7mm. No hydro. MRI Abd w/wo con 09/13/24 [facility] - Hemorrhagic/proteinaceous cyst at RUP measuring 10 mm. Small exophytic cyst inferior pole L kidney measuring 9 mm. Intracortical hemorrhagic/proteinaceous cyst at LUP measuring 10 mm, unchanged. Midpole lesion posteromedially on L with similar appearance measures 6 mm. Foci are increased in signal intensity. Unchanged from CT done 03/24/21. Reviewed imaging results. Cyst remains stable. No indication for intervention at this time. Will cont to monitor. -MRI due in 1 yr 2. Urge incontinence (N39.41: Urge incontinence) PVR 03/19/24 - 0 cc. Taking Oxybutynin ER 10 mg qd. Admits she delays voiding when she gets the urge. Otherwise she does not typically experience leakage. Practices double void maneuvers. Feels she empties. Reports edema in ankles, thought this was related to another medication she was not but has not had any improvement since stopping it. Advised pt this is a possible SE of anticholinergics. Recommend switching medications. Pt agrees to try this. -D/c Oxybutynin -Start mirabegron 50mg ER qd. Possible SEs discussed. Rx sent to [facility]. -Cont double void maneuvers 3. 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 Elevated risk for periop complications in the future. Follow-up With When Contact Information Alfredo CARDENAS MD, URL [facility] [address], [place] [phone] Additional Instructions: 1 yr w/ MRI Patient Education Kegel Brenda Anderson, Mayte Vogt, personally scribed for Dr. Cardenas on 11/18/2024 14:24:00. . Documentation recorded by the scribe, Mayte Vogt, accurately reflects the services(s) I performed and decisions made by me. Authenticated by Dr. Cardenas on 11/18/2024 14:26:13. Problem List/Past Medical History Ongoing 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 Kidney lesion Osteoporosis Urge incontinence Historical Heart disease Hyperlipidemia Hypertension Infarction of heart Procedure/Surgical History Cholecystectomy, Colonoscopy, Procedure on back, Tonsillectomy. Medication (more content not included)... Normal [facility] Comment on above: Result Comment: Elec tronically Signed By: Alfredo CARDENAS MD\.br\Date and Time Signed: 11/18/24 14:26 EST\.br\Electronically Co-Signed By: Mayte Vogt\.br\Date and Time Co-Signed: 11/18/24 14:24 EST Reminderson 09-23-2024 Reminders Reminders From: MIGUEL Thomson APRN, [place] X To: DARREL Cardenas; Sent: 03/19/2024 15:06:49 EDT Show up: 08/18/2024 15:06:00 EST Subject: Reminder Message Reminder Message MRI abdomen with and without IV contrast for kidney lesion surveillance. Follow-up appointment scheduled September Order for MRI and accompanying paperwork faxed to [facility] Central scheduling today. They will call pt to schedule. Pt is scheduled today at 2pm for MRI and creatinine draw. Will monitor Results in chart for review Results in chart for review Normal [facility] CREATININEon 09-13-2024 Creatinine [Mass/Vol] 1.56 mg/dL High 0.55 - 1.02 mg/dL [facility] GFR/1.73 sq M.predicted CKD-EPI (S/P/Bld) [Vol rate/Area] 39 Low >=60 mL/min/1.7 3m 2 [facility] Interpretation and review of laboratory results Abnormal [facility] EGFR-NON AF [place] 32 Low >=60 mL/min/1.7 3m 2 [facility] 36on 05-21-2024 36 Regarding echo resul t from 05/10/2024: MD Kari Castellano MA Echo was ok, follow up in 1 year. Patient informed. Normal [facility] Office Visiton 04-24-2024 Follow-up visit [id number] Lauren Dennis 1950 F Date Provider Department Center 04/24/2024 [facility]UILER[facility] C[facility] Family History Problem Relation Age of Onset Coronary artery disease Mother Stroke Mother Coronary artery disease Father Ovarian cancer Sister Family Status - Relation Status Age at Mother Father Sister Level of Service:01882 [place] OFFICE/OUTPATIENT ESTABLISHED MOD MDM 30 MIN Normal [facility] Urology Office/Clinic Noteon 03-19-2024 Urology Office/Clinic Note [...] with voice recognition artificial intelligence software, specifically AviantLogic, iSnap and or Telogis. Substitutions may have occurred due to the [...] 0 -Continue oxybutynin, call for refills Ordered: [id number] Measure Post Void residual urine and/or bladder [...] months for continued monitoring 3. 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) On Eliquis Follow-up With When Contact Information RONALD BEAULIEU, Alfredo Moya, URL [facility] [address], [place] [address] [phone] Additional Instructions: 6 mos w/ MRI Patient [...] tablet, extended release nitroglycerin 0.4 mg SubL [place], SubLingual, q5min oxybutynin 10 mg ER Tab, [...] virus vaccine, inactivated 07/04/2022 Recorded SARS-CoV-2 (COVID-19) mRNAMUL.ORD![id number] 07/04/2022 Recorded influenza virus vaccine, inactivated 06/24/2021 Recorded SARS-CoV-2 (COVID-19) mRNA BNT-162b2 vax 06/24/2021 Recorded 2022-09-26: TPV70 SARS-CoV-2 (COVID-19) mRNA BNT-162b2 vax 11/17/2020 Recorded 2022-09-26: TPV70 SARS-CoV-2 (COVID-19) mRNA BNT-162b2 vax 10/27/2020 Recorded 2022-09-26: TPV70 influenza virus vaccine, inactivated 07/08/2020 Recorded [1] URO- review MRI, start Oxybutynin; RONALD BEAULIEU (more content not included)... Normal [facility] Comment on above: Result Comment: Elec tronically Signed By: MIGUEL Thomson APRN, Maria Luisa Pritchard\.br\Date and Time Signed: 03/19/24 15:09 EDT CBC AUTO DIFFon 01-18-2023 BASO # 0.1 103/ul Normal 0.0-0.1 [facility] Comment on above: Performed By: #### C BC #### [facility] [address] [address] [address] Aryan Petty Basophils/100 WBC (Bld) 1.4 % Normal 0.2-2.0 [facility] Comment on above: Performed By: #### C BC #### [facility] [address] [address] [address] Aryan Petty EO # 0.6 103/ul Normal 0.0-0.7 [facility] Comment on above: Performed By: #### C BC #### [facility] [address] [address] [address] Aryan Petty Eosinophils/100 WBC (Bld) 7.7 % Critically high 0.9-7.0 [facility] Comment on above: Performed By: #### C BC #### [facility] [address] [address] [address] Aryan Petty Erythrocyte distribution width (RBC) [Ratio] 16.4 % Critically high 11.0-15.0 [facility] Comment on above: Performed By: #### C BC #### [facility] [address] [address] [address] Aryan Petty Hematocrit (Bld) [Volume fraction] 40.6 % Normal 36.0-48.0 [facility] Comment on above: Performed By: #### C BC #### [facility] [address] [address] [address] Aryan Petty Hemoglobin (Bld) [Mass/Vol] 12.9 g/dL Normal 12.0-16.0 [facility] Comment on above: Performed By: #### C BC #### [facility] [address] [place] [address] Dr. Aryan Petty IG # 0.03 10e3/ul Normal 0.00-0.03 [facility] Comment on above: Performed By: #### C BC #### [facility] [address] [place] [address] Dr. Aryan Petty IG % 0.4 % Normal 0.0-0.5 [facility] Comment on above: Performed By: #### C BC #### [facility] [address] [place] [address] Dr. Aryan Petty LYMPH # 2.6 103/ul Normal 1.2-3.8 [facility] Comment on above: Performed By: #### C BC #### [facility] [address] [place] [address] Dr. Aryan Petty Lymphocytes/100 WBC (Bld) 35.5 % Normal 20.5-60.0 [facility] Comment on above: Performed By: #### C BC #### [facility] [address] [place] [address] Dr. Aryan Petty MANUAL DIFF REQ NO Normal [facility] Comment on above: Performed By: #### C BC #### [facility] [address] [place] [address] Dr. Aryan Petty MCH (RBC) [Entitic mass] 26.5 pg Critically low 26.7-34.0 [facility] Comment on above: Performed By: #### C BC #### [facility] [address] [place] [address] Dr. Aryan Petty MCHC (RBC) [Mass/Vol] 31.8 g/dL Normal 29.9-35.2 [facility] Comment on above: Performed By: #### C BC #### [facility] [address] [place] [address] Dr. Aryan Petty MCV (RBC) [Entitic vol] 83.5 fL Normal 81.0-99.0 [facility] Comment on above: Performed By: #### C BC #### [facility] [address] [place] [address] Dr. Aryan Petty MONO # 0.7 103/ul Normal 0.3-0.8 [facility] Comment on above: Performed By: #### C BC #### [facility] [address] [place] [address] Dr. Aryan Petty Monocytes/100 WBC (Bld) 9.9 % Normal 1.7-12.0 [facility] Comment on above: Performed By: #### C BC #### [facility] [address] [place] [address] Dr. Aryan Petty NEUT # 3.3 103/ul Normal 1.4-6.5 [facility] Comment on above: Performed By: #### C BC #### [facility] [address] [place] [address] Dr. Aryan Petty Neutrophils/100 WBC (Bld) 45.1 % Normal 43.0-75.0 [facility] Comment on above: Performed By: #### C BC #### [facility] [address] [place] [address] Dr. Aryan Petty Platelet mean volume (Bld) [Entitic vol] 11.0 fL Normal 9.5-13.5 [facility] Comment on above: Performed By: #### C BC #### [facility] [address] [place] [address] Dr. Aryan Petty PLT 270 103/ul Normal 150-450 [facility] Comment on above: Performed By: #### C BC #### [facility] [address] [place] [address] Dr. Aryan Petty RBC 4.86 106/ul Normal 4.20-5.40 [facility] Comment on above: Performed By: #### C BC #### [facility] [address] [place] [address] Dr. Aryan Petty WBC 7.4 103/ul Normal 4.0-11.0 [facility] Comment on above: Performed By: #### C BC #### [facility] [address] [place] [address] Dr. Aryan Petty LIPID PROFILEon 01-18-2023 CHOL-HDL RATIO NORM SEE BELOW Normal [facility] Comment on above: Result Comment: 3.3 - 4.4 LOW RISK 4.4 - 7.1 AVERAGE RISK 7.1 - 11.0 MODERATE RISK >11.0 HIGH RISK Performed By: #### C MP, LIPID #### [facility] [address] [address] [address] Aryan Petty Cholesterol [Mass/Vol] 189 mg/dL Normal <=200 [facility] Comment on above: Performed By: #### C MP, LIPID #### [facility] [address] [address] [address] Aryan Petty Cholesterol in HDL [Mass/Vol] 30 mg/dL Critically low 40-60 [facility] Comment on above: Performed By: #### C MP, LIPID #### [facility] [address] [address] [address] Aryan Petty Cholesterol in LDL [Mass/Vol] 101.6 mg/dL Normal [facility] Comment on above: Performed By: #### C MP, LIPID #### [facility] [address] [address] [address] Aryan Petty Cholesterol.total/Chol esterol in HDL [Mass ratio] 6.3 {ratio} Normal [facility] Comment on above: Performed By: #### C MP, LIPID #### [facility] [address] [address] [address] Aryan Petty HDL NORMAL > or = 60 mg/dl - LO W CARDIOVASCULAR RISK <40 mg/dl - HIGH CARDIOVASCULAR RISK Normal [facility] Comment on above: Performed By: #### C MP, LIPID #### [facility] [address] [id number] Aryan Petty LDL CALC NORMAL SEE BELOW Normal [facility] Comment on above: Result Comment: <100 mg/dl OPTIMAL 100 - 129 mg/dl NEAR OR ABOVE OPTIMAL 130 - 159 mg/dl BORDERLINE HIGH 160 - 189 mg/dl HIGH >190 mg/dl VERY HIGH Performed By: #### C MP, LIPID #### [facility] [address] [place] [address] Dr. Aryan Petty Triglyceride [Mass/Vol] 287 mg/dL Critically high <=150 [facility] Comment on above: Performed By: #### C MP, LIPID #### [facility] [address] [place] [address] Dr. Aryan Petty VLDL CALC 57.4 mg/dL Normal [facility] Comment on above: Performed By: #### C MP, LIPID #### [facility] [address] [place] [address] Dr. Aryan Petty PROF 14(COMP METB)on 023 Albumin [Mass/Vol] 3.6 g/dL Normal 3.4-5.0 [facility] Comment on above: Performed By: #### C MP, LIPID #### [facility] [address] [place] [address] Dr. Aryan Petty Albumin/Globulin [Mass ratio] 0.8 {ratio} Normal [facility] Comment on above: Performed By: #### C MP, LIPID #### [facility] [address] [place] [address] Dr. Aryan Petty ALP [Catalytic activity/Vol] 86 U/L Normal 46-116 [facility] Comment on above: Performed By: #### C MP, LIPID #### [facility] [address] [place] [address] Dr. Aryan Petty ALT [Catalytic activity/Vol] 21 U/L Normal 14-59 [facility] Comment on above: Performed By: #### C MP, LIPID #### [facility] [address] [place] [address] Dr. Aryan Petty Anion gap [Moles/Vol] 13.1 mmol/L Normal [facility] Comment on above: Performed By: #### C MP, LIPID #### [facility] [address] [place] [address] Dr. Aryan Petty AST [Catalytic activity/Vol] 27 U/L Normal 15-37 [facility] Comment on above: Performed By: #### C MP, LIPID #### [facility] [address] [place] [address] Dr. Aryan Petty Bilirubin [Mass/Vol] 0.4 mg/dL Normal 0.2-1.0 [facility] Comment on above: Performed By: #### C MP, LIPID #### [facility] [address] [address] [address] Aryan Petty Calcium [Mass/Vol] 9.4 mg/dL Normal 8.5-10.1 [facility] Comment on above: Performed By: #### C MP, LIPID #### [facility] [address] [place] [address] Dr. Aryan Petty Chloride [Moles/Vol] 103 mmol/L Normal 98-107 [facility] Comment on above: Performed By: #### C MP, LIPID #### [facility] [address] [place] [address] Dr. Aryan Petty CO2 [Moles/Vol] 27.6 mmol/L Normal 21.0-32.0 [facility] Comment on above: Performed By: #### C MP, LIPID #### [facility] [address] [place] [address] Dr. Aryan Petty Creatinine [Mass/Vol] 2.21 mg/dL Critically high 0.55-1.02 [facility] Comment on above: Performed By: #### C MP, LIPID #### [facility] [address] [place] [address] Dr. Aryan Petty EGFR-AF [place] 26 mL/min/1.73m2 Critically low >=60 [facility] Comment on above: Performed By: #### C MP, LIPID #### [facility] [address] [place] [address] Dr. Ayran Petty EGFR-NON AF [place] 22 mL/min/1.73m2 Critically low >=60 [facility] Comment on above: Performed By: #### C MP, LIPID #### [facility] [address] [place] [address] Dr. Aryan Petty Globulin (S) [Mass/Vol] 4.6 g/dL Normal [facility] Comment on above: Performed By: #### C MP, LIPID #### [facility] [address] [address] [address] Aryan Petty Glucose [Mass/Vol] 120 mg/dL Critically high 74-106 [facility] Comment on above: Performed By: #### C MP, LIPID #### [facility] [address] [address] [address] Aryan Petty Potassium [Moles/Vol] 4.0 mmol/L Normal 3.5-5.1 [facility] Comment on above: Performed By: #### C MP, LIPID #### [facility] [address] [address] [address] Aryan Petty Protein [Mass/Vol] 8.2 g/dL Normal 6.4-8.2 [facility] Comment on above: Performed By: #### C MP, LIPID #### [facility] [address] [address] [address] Aryan Petty Sodium [Moles/Vol] 140 mmol/L Normal 136-145 [facility] Comment on above: Performed By: #### C MP, LIPID #### [facility] [address] [address] [address] Aryan Petty Urea nitrogen [Mass/Vol] 29.0 mg/dL Critically high 7.0-18.0 [facility] Comment on above: Performed By: #### C MP, LIPID #### [facility] [address] [place] [address] Dr. Aryan Petyt Urea nitrogen/Creatinine [Mass ratio] 13.1 mg/mg Normal [facility] Comment on above: Performed By: #### C MP, LIPID #### [facility] [address] [place] [address] Dr. Aryan Petty US CAROTID ART BILon 01-10-2 023 US CAROTID ART TEJ EXAMINATION: US [...] by: TONYA GARCIA Date: 2023-01-10 15:26 Normal [facility] XR DEXA BONE DENSITYon 09-07 XR DEXA BONE DENSITY EXAMINATION: XR DEX A BONE DENSITY, 09/07/2022 3:35 PM EST HISTORY: [...] by: TONYA GARCIA Date: 2022-09-07 16:41 Normal [facility] MRI ABDOMEN WO W CONon 09-01 MRI ABDOMEN WO W CON EXAM: MRI ABDOMEN W O W CON HISTORY: Kidney lesion COMPARISON: Renal [...] by: RYLAN HOPKINS Date: 2022-09-01 12:43 Normal [facility] CREATININEon 08-29-2022 Creatinine [Mass/Vol] 2.23 mg/dL Critically high 0.55-1.02 [facility] Comment on above: Performed By: #### C JUDAH ####[facility] [address] [address]Dr. Aryan Petty EGFR-AF [place] 26 mL/min/1.73m2 Critically low >=60 [facility] Comment on above: Performed By: #### C JUDAH ####[facility] [address] [address]Dr. Aryan Petty EGFR-NON AF [place]IZ[place] 22 mL/min/1.73m2 Critically low >=60 [facility] Comment on above: Performed By: #### C JUDAH ####[facility] [address] [address]Dr. Aryan Petty ECHOCARDIO M/2D COMPLETEon 0 03-16-2022 ECHOCARDIO M/2D COMPLETE Patient: MARLENI DENNIS Exam Date: 03/16/2022 : 1950 Gender:F Ordering : JOHN LUTHER Admission #: [id number] Family : DR JACK VOGT M.D. Order #: [id number] CLICK HERE TO VIEW EXAM ECHOCARDIOGRAM REPORT [...] Aguilera M.D. on 03/16/2022 at 16:36 Normal [facility] BNPon 02-22-2022 Natriuretic peptide B (Bld) [Mass/Vol] 553.0 pg/mL Normal <=900.0 [facility] Comment on above: Performed By: #### B RADIO RIGGER, BMP ####[facility] [address] [address]Dr. Aryan Petty PROF CHEM 8 (BAS METB)on Anion gap [Moles/Vol] 14.9 mmol/L Normal [facility] Comment on above: Performed By: #### B RADIO RIGGER, BMP ####[facility] [address] [address]DrGenet Petty Calcium [Mass/Vol] 9.1 mg/dL Normal 8.5-10.1 [facility] Comment on above: Performed By: #### B RADIO RIGGER, BMP ####[facility] [address] [address]DrGenet Petty Chloride [Moles/Vol] 102 mmol/L Normal 98-107 [facility] Comment on above: Performed By: #### B RADIO RIGGER, BMP ####[facility] [address] [address]Dr. Aryan Petty CO2 [Moles/Vol] 27.7 mmol/L Normal 21.0-32.0 [facility] Comment on above: Performed By: #### B RADIO RIGGER, BMP ####[facility] [address] [address]Dr. Suzannetanisha Jovanny Creatinine [Mass/Vol] 1.80 mg/dL Critically high 0.55-1.02 [facility] Comment on above: Performed By: #### B RADIO RIGGER, BMP ####[facility] [address] [place], [place] [address]Dr. Aryan Petty EGFR-AF [place]IZ[place] 34 mL/min/1.73m2 Critically low >=60 [facility] Comment on above: Performed By: #### B RADIO RIGGER, BMP ####[facility] [address] [place], [place] [address]Dr. Suzannetanisha Jovanny EGFR-NON AF [place]IZ[place] 28 mL/min/1.73m2 Critically low >=60 [facility] Comment on above: Performed By: #### B RADIO RIGGER, BMP ####[facility] [address] [place], [place] [address]Dr. Aryan Petty Glucose [Mass/Vol] 107 mg/dL Critically high 74-106 [facility] Comment on above: Performed By: #### B RADIO RIGGER, BMP ####[facility] [address] [place], [place] [address]Dr. Aryan Petty Potassium [Moles/Vol] 3.6 mmol/L Normal 3.5-5.1 [facility] Comment on above: Performed By: #### B RADIO RIGGER, BMP ####[facility] [address] [place], [place] [address]Dr. Aryan Petty Sodium [Moles/Vol] 141 mmol/L Normal 136-145 [facility] Comment on above: Performed By: #### B RADIO RIGGER, BMP ####[facility] [address] [place], [place] [address]Dr. Aryan Petty Urea nitrogen [Mass/Vol] 33.0 mg/dL Critically high 7.0-18.0 [facility] Comment on above: Performed By: #### B RADIO RIGGER, BMP ####[facility] [address] [place], [place] [address]TvGenet Petty Urea nitrogen/Creatinine [Mass ratio] 18.3 mg/mg Normal [facility] Comment on above: Performed By: #### B RADIO RIGGER, BMP ####[facility] [address] [place], [place] [address]Jn. Aryan Petty US KIDNEYSon 02-22-2022 US KIDNEYS EXAMINATION: US KID EYS HISTORY: Kidney lesion COMPARISON: 03/24/2021 TECHNIQUE: [...] for further evaluation Electronically authenticated by: HENRY WALL Date: 2022-02-22 17:17 Normal [facility] VC VENOUS REFLUX TEJ LMTon 0 02-16-2022 VC VENOUS REFLUX TEJ LMT Patient: MARLENI DENNIS Exam Date: 02/16/2022 : 1950 Gender:F Ordering : JOHN LUTHER Admission #: [id number] Family : Order #: [id number] CLICK HERE TO VIEW EXAM RADIOLOGY REPORT [...] proximal SSV. Flow: Mild deep venous reflux. Pantograph I Engraver: Dist/med calf 3.3 mm with 0.3s reflux. [...] Normal. Flow: Mild deep venous reflux noted. Pantograph I Engraver: Mid/medial calf 3.1mm, 2.9s. Dist/med calf 3.1mm, [...] branch saphenous tributaries/varicose veins Dictated by: Henry Wall MD on 02/16/2022 at 11:46 Approved by: Henry Wall MD on 02/16/2022 at 11:49 Normal [facility] US CAROTID ART BILon 05-20-2 022 US [...] TONYA GARCIA Date: 2022-02-04 17:45 Normal [facility] US WALTER DOP LEG BILon 022 [...] by: JERRICA HOLDEN Date: 2022-02-04 16:34 Normal [facility] BNPon 01-31-2022 Natriuretic peptide B (Bld) [Mass/Vol] 620.0 pg/mL Normal <=900.0 [facility] Comment on above: Performed By: #### B RADIO RIGGER, BMP, LIPID ####[facility] [address] [id number]. Aryan Petty LIPID PROFILEon 01-31-2022 CHOL-HDL RATIO NORM SEE BELOW Normal [facility] Comment on above: Result Comment: 3.3 - 4.4 LOW RISK 4.4 - 7.1 AVERAGE RISK 7.1 - 11.0 MODERATE RISK >11.0 HIGH RISK Performed By: #### B RADIO RIGGER, BMP, LIPID ####[facility] [address] [address]Dr. Aryan Petty Cholesterol [Mass/Vol] 148 mg/dL Normal <=200 [facility] Comment on above: Performed By: #### B RADIO RIGGER, BMP, LIPID ####[facility] [address] [place], [place] [address]Bq. Aryan Petty Cholesterol in HDL [Mass/Vol] 25 mg/dL Critically low 40-60 [facility] Comment on above: Performed By: #### B RADIO RIGGER, BMP, LIPID ####[facility] [address] [address]Dr. Aryan Petty Cholesterol in LDL [Mass/Vol] 80.8 mg/dL Normal [facility] Comment on above: Performed By: #### B RADIO RIGGER, BMP, LIPID ####[facility] [address] [address]Dr. Aryan Petty Cholesterol.total/Chol esterol in HDL [Mass ratio] 5.9 {ratio} Normal [facility] Comment on above: Performed By: #### B RADIO RIGGER, BMP, LIPID ####[facility] [address] [place] [id number]. Aryan Petty HDL NORMAL > or = 60 mg/dl - LO W CARDIOVASCULAR RISK <40 mg/dl - HIGH CARDIOVASCULAR RISK Normal [facility] Comment on above: Performed By: #### B RADIO RIGGER, BMP, LIPID ####[facility] [address] [place] [address]Dr. Aryan Petty LDL CALC NORMAL SEE BELOW Normal [facility] Comment on above: Result Comment: <100 mg/dl OPTIMAL 100 - 129 mg/dl NEAR OR ABOVE OPTIMAL 130 - 159 mg/dl BORDERLINE HIGH 160 - 189 mg/dl HIGH >190 mg/dl VERY HIGH Performed By: #### B RADIO RIGGER, BMP, LIPID ####[facility] [address] [place] [address]Dr. Aryan Petty Triglyceride [Mass/Vol] 211 mg/dL Critically high <=150 [facility] Comment on above: Performed By: #### B RADIO RIGGER, BMP, LIPID ####[facility] [address] [place] [id number]. Aryan Petty VLDL CALC 42.2 mg/dL Normal [facility] Comment on above: Performed By: #### B RADIO RIGGER, BMP, LIPID ####[facility] [address] [place] [id number]. Aryan Petty PROF CHEM 8 (BAS METB)on Anion gap [Moles/Vol] 14.7 mmol/L Normal [facility] Comment on above: Performed By: #### B RADIO RIGGER, BMP, LIPID ####[facility] [address] [place] [id number]. Aryan Petty Calcium [Mass/Vol] 8.7 mg/dL Normal 8.5-10.1 [facility] Comment on above: Performed By: #### B RADIO RIGGER, BMP, LIPID ####[facility] [address] [place] [address]Dr. Aryan Petty Chloride [Moles/Vol] 104 mmol/L Normal 98-107 [facility] Comment on above: Performed By: #### B RADIO RIGGER, BMP, LIPID ####[facility] [address] [place] [address]Dr. Aryan Petty CO2 [Moles/Vol] 26.0 mmol/L Normal 21.0-32.0 [facility] Comment on above: Performed By: #### B RADIO RIGGER, BMP, LIPID ####[facility] [address] [place], [place] [address]Dr. Aryan Petty Creatinine [Mass/Vol] 2.91 mg/dL Critically high 0.55-1.02 [facility] Comment on above: Performed By: #### B RADIO RIGGER, BMP, LIPID ####[facility] [address] [place], [place] [address]Dr. Aryan Petty EGFR-AF CITIZEN [place] 19 mL/min/1.73m2 Critically low >=60 [facility] Comment on above: Performed By: #### B RADIO RIGGER, BMP, LIPID ####[facility] [address] [place], [place] [address]Dr. Aryan Petty EGFR-NON AF CITIZEN OF [place] 16 mL/min/1.73m2 Critically low >=60 [facility] Comment on above: Performed By: #### B RADIO RIGGER, BMP, LIPID ####[facility] [address] [place] [address]Dr. Aryan Petty Glucose [Mass/Vol] 110 mg/dL Critically high 74-106 [facility] Comment on above: Performed By: #### B RADIO RIGGER, BMP, LIPID ####[facility] [address] [place], [place] [address]Dr. Aryan Ptety Potassium [Moles/Vol] 3.7 mmol/L Normal 3.5-5.1 [facility] Comment on above: Performed By: #### B RADIO RIGGER, BMP, LIPID ####[facility] [address] [place], [place] [address]Wr. Aryan Petty Sodium [Moles/Vol] 141 mmol/L Normal 136-145 [facility] Comment on above: Performed By: #### B RADIO RIGGER, BMP, LIPID ####[facility] [address] [place], [place] [address]Vd. Aryan Petty Urea nitrogen [Mass/Vol] 51.0 mg/dL Critically high 7.0-18.0 [facility] Comment on above: Performed By: #### B RADIO RIGGER, BMP, LIPID ####[facility] [address] [place], [place] [address]Hy. Aryan Petty Urea nitrogen/Creatinine [Mass ratio] 17.5 mg/mg Normal [facility] Comment on above: Performed By: #### B RADIO RIGGER, BMP, LIPID ####[facility] [address] [place], [place] [address]Ts. Aryan Petty Basic Metabolic Panel Reflex Mgon 06-07-2018 Anion gap 3 molar conc 10 mmol/L Normal 7-13 [facility] Calcium mass conc 8.2 mg/dL Low 8.6-10.2 [facility] Chloride molar conc 109 mmol/L Critically high 98-107 [facility] CO2 molar conc 25 mmol/L Normal 22-29 [facility] Creatinine mass conc 1.21 mg/dL Critically high 0.50-0.90 [facility] GFR/1.73 sq M predicted among blacks MDRD vol rate/area (S/P/Bld) 53.4 mL/min/{1.73_m2} Low >60 [facility] Comment on above: Result Comment: >60 mL/min/1.73m2 EGFR, calc. for ages 18 and older using theMDRD formula (not corrected for weight), is valid for stablerenal function. GFR/1.73 sq M.predicted MDRD vol rate/area 44.2 mL/min/{1.73_m2} Low >60 [facility] Comment on above: Result Comment: >60 mL/min/1.73m2 EGFR, calc. for ages 18 and older using theMDRD formula (not corrected for weight), is valid for stablerenal function. Glucose mass conc 111 mg/dL Critically high 74-109 [facility] Potassium reflex Mg 3.6 mEq/L Normal 3.5-5.1 [facility] Sodium molar conc 144 mmol/L Normal 132-144 [facility] Urea nitrogen mass conc 26 mg/dL Critically high 8-23 [facility] CBC With Platelet and Differ entialon 06-07-2018 Basophils Auto #/vol (Bld) 0.1 10*3/uL Normal 0.0-0.2 [facility] Basophils/100 WBC Auto (Bld) 0.7 % Normal [facility] Eosinophils Auto #/vol (Bld) 0.3 10*3/uL Normal 0.0-0.7 [facility] Eosinophils/100 WBC Auto (Bld) 3.1 % Normal [facility] Erythrocyte distribution width Auto Ratio (RBC) 13.4 % Normal 11.5-14.5 [facility] Hematocrit Auto Volume Fraction (Bld) 34.6 % Low 37.0-47.0 [facility] Hemoglobin mass conc (Bld) 12.0 g/dL Normal 12.0-16.0 [facility] Lymphocytes Auto #/vol (Bld) 2.3 10*3/uL Normal 1.0-4.8 [facility] Lymphocytes/100 WBC Auto (Bld) 24.2 % Normal [facility] MCH Auto Entitic mass (RBC) 33.0 pg Critically high 27.0-31.3 [facility] MCHC Auto mass conc (RBC) 34.6 % Normal 33.0-37.0 [facility] MCV Auto Entitic volume (RBC) 95.4 fL Normal 82.0-100.0 [facility] Monocytes Auto #/vol (Bld) 0.9 10*3/uL Critically high 0.2-0.8 [facility] Monocytes/100 WBC Auto (Bld) 9.8 % Normal [facility] Neutrophils Auto #/vol (Bld) 5.9 10*3/uL Normal 1.4-6.5 [facility] Neutrophils/100 WBC Auto (Bld) 62.2 % Normal [facility] Platelets Auto #/vol (Bld) 139 10*3/uL Normal 130-400 [facility] RBC Auto #/vol (Bld) 3.62 10*6/uL Low 4.20-5.40 [facility] WBC Auto #/vol (Bld) 9.5 10*3/uL Normal 4.8-10.8 [facility] Basic Metabolic Panelon 05-19 Anion gap 3 molar conc 11 mmol/L Normal 7-13 [facility] Calcium mass conc 8.3 mg/dL Low 8.6-10.2 [facility] Chloride molar conc 104 mmol/L Normal 98-107 [facility] CO2 molar conc 26 mmol/L Normal 22-29 [facility] Creatinine mass conc 1.90 mg/dL Critically high 0.50-0.90 [facility] GFR/1.73 sq M predicted among blacks MDRD vol rate/area (S/P/Bld) 31.8 mL/min/{1.73_m2} Low >60 [facility] Comment on above: Result Comment: >60 mL/min/1.73m2 EGFR, calc. for ages 18 and older using theMDRD formula (not corrected for weight), is valid for stablerenal function. GFR/1.73 sq M.predicted MDRD vol rate/area 26.2 mL/min/{1.73_m2} Low >60 [facility] Comment on above: Result Comment: >60 mL/min/1.73m2 EGFR, calc. for ages 18 and older using theMDRD formula (not corrected for weight), is valid for stablerenal function. Glucose mass conc 149 mg/dL Critically high 74-109 [facility] Potassium molar conc 4.1 mmol/L Normal 3.5-5.1 [facility] Sodium molar conc 141 mmol/L Normal 132-144 [facility] Urea nitrogen mass conc 25 mg/dL Critically high 8-23 [facility] CBC With Platelet and Differ entialon 06-06-2018 Basophils Auto #/vol (Bld) 0.0 10*3/uL Normal 0.0-0.2 [facility] Basophils/100 WBC Auto (Bld) 0.1 % Normal [facility] Eosinophils Auto #/vol (Bld) 0.0 10*3/uL Normal 0.0-0.7 [facility] Eosinophils/100 WBC Auto (Bld) 0.0 % Normal [facility] Erythrocyte distribution width Auto Ratio (RBC) 13.5 % Normal 11.5-14.5 [facility] Hematocrit Auto Volume Fraction (Bld) 35.0 % Low 37.0-47.0 [facility] Hemoglobin mass conc (Bld) 12.0 g/dL Normal 12.0-16.0 [facility] Lymphocytes Auto #/vol (Bld) 1.0 10*3/uL Normal 1.0-4.8 [facility] Lymphocytes/100 WBC Auto (Bld) 8.2 % Normal [facility] MCH Auto Entitic mass (RBC) 32.8 pg Critically high 27.0-31.3 [facility] MCHC Auto mass conc (RBC) 34.4 % Normal 33.0-37.0 [facility] MCV Auto Entitic volume (RBC) 95.3 fL Normal 82.0-100.0 [facility] Monocytes Auto #/vol (Bld) 1.0 10*3/uL Critically high 0.2-0.8 [facility] Monocytes/100 WBC Auto (Bld) 8.0 % Normal [facility] Neutrophils Auto #/vol (Bld) 10.1 10*3/uL Critically high 1.4-6.5 [facility] Neutrophils/100 WBC Auto (Bld) 83.7 % Normal [facility] Platelets Auto #/vol (Bld) 146 10*3/uL Normal 130-400 [facility] RBC Auto #/vol (Bld) 3.67 10*6/uL Low 4.20-5.40 [facility] WBC Auto #/vol (Bld) 12.1 10*3/uL Critically high 4.8-10.8 [facility] XR CHEST (2 VW)on 06-06-2018 XR CHEST [...] RIGHT SIDE GREATER THAN LEFT CONSISTENT WITH ATELECTASIS/SCARRING/PNEUM ONITIS. Interpreted by:ANDRA Dominguezigned by:Joss Casas MD//18Final result Normal [facility] Basic Metabolic Panel Reflex Mgon 06-05-2018 Anion gap 3 molar conc 11 mmol/L Normal 7-13 [facility] Calcium mass conc 8.9 mg/dL Normal 8.6-10.2 [facility] Chloride molar conc 105 mmol/L Normal 98-107 [facility] CO2 molar conc 25 mmol/L Normal 22-29 [facility] Creatinine mass conc 0.86 mg/dL Normal 0.50-0.90 [facility] GFR/1.73 sq M predicted among blacks MDRD vol rate/area (S/P/Bld) mL/min/{1.73_m2} Normal >60 [facility] Comment on above: Result Comment: >60 mL/min/1.73m2 EGFR, calc. for ages 18 and older using theMDRD formula (not corrected for weight), is valid for stablerenal function. GFR/1.73 sq M.predicted MDRD vol rate/area mL/min/{1.73_m2} Normal >60 [facility] Comment on above: Result Comment: >60 mL/min/1.73m2 EGFR, calc. for ages 18 and older using theMDRD formula (not corrected for weight), is valid for stablerenal function. Glucose mass conc 135 mg/dL Critically high 74-109 [facility] Potassium reflex Mg 4.0 mEq/L Normal 3.5-5.1 [facility] Sodium molar conc 141 mmol/L Normal 132-144 [facility] Urea nitrogen mass conc 13 mg/dL Normal 8-23 [facility] CBC With Platelet and Differ entialon 06-05-2018 RBC morphology finding Nom (Bld) Normal Normal [facility] Platelet Slide Review Normal Normal [facility] Basophils Auto #/vol (Bld) 0.1 10*3/uL Normal 0.0-0.2 [facility] Basophils/100 WBC Auto (Bld) 1.0 % Normal [facility] Eosinophils Auto #/vol (Bld) 0.0 10*3/uL Normal 0.0-0.7 [facility] Eosinophils/100 WBC Auto (Bld) 0.4 % Normal [facility] Erythrocyte distribution width Auto Ratio (RBC) 13.5 % Normal 11.5-14.5 [facility] Hematocrit Auto Volume Fraction (Bld) 40.5 % Normal 37.0-47.0 [facility] Hemoglobin mass conc (Bld) 13.7 g/dL Normal 12.0-16.0 [facility] Lymphocytes Auto #/vol (Bld) 2.0 10*3/uL Normal 1.0-4.8 [facility] Lymphocytes/100 WBC Auto (Bld) 15.5 % Normal [facility] MCH Auto Entitic mass (RBC) 32.4 pg Critically high 27.0-31.3 [facility] MCHC Auto mass conc (RBC) 33.9 % Normal 33.0-37.0 [facility] MCV Auto Entitic volume (RBC) 95.6 fL Normal 82.0-100.0 [facility] Monocytes Auto #/vol (Bld) 1.3 10*3/uL Critically high 0.2-0.8 [facility] Monocytes/100 WBC Auto (Bld) 10.1 % Normal [facility] Neutrophils Auto #/vol (Bld) 9.4 10*3/uL Critically high 1.4-6.5 [facility] Neutrophils/100 WBC Auto (Bld) 73.0 % Normal [facility] Platelets Auto #/vol (Bld) 168 10*3/uL Normal 130-400 [facility] RBC Auto #/vol (Bld) 4.24 10*6/uL Normal 4.20-5.40 [facility] WBC Auto #/vol (Bld) 12.9 10*3/uL Critically high 4.8-10.8 [facility] POCT Glucoseon 06-05-2018 Glucose mass conc 132 mg/dL Critically high 60-115 [facility] XR LUMBAR SPINE (2-3 VIEWS)o n 09-18-2018 XR LUMBAR SPINE (2-3 VIEWS) EXAMINATION: XR [...] by:ANDRA Sotoigned by:Tanvir Power MD06/05/18inal result Normal [facility] Basic Metabolic Panel Reflex Mgon 06-04-2018 Anion gap 3 molar conc 13 mmol/L Normal 7-13 [facility] Calcium mass conc 9.1 mg/dL Normal 8.6-10.2 [facility] Chloride molar conc 103 mmol/L Normal 98-107 [facility] CO2 molar conc 23 mmol/L Normal 22-29 [facility] Creatinine mass conc 1.08 mg/dL Critically high 0.50-0.90 [facility] GFR/1.73 sq M predicted among blacks MDRD vol rate/area (S/P/Bld) mL/min/{1.73_m2} Normal >60 [facility] Comment on above: Result Comment: >60 mL/min/1.73m2 EGFR, calc. for ages 18 and older using theMDRD formula (not corrected for weight), is valid for stablerenal function. GFR/1.73 sq M.predicted MDRD vol rate/area 50.4 mL/min/{1.73_m2} Low >60 [facility] Comment on above: Result Comment: >60 mL/min/1.73m2 EGFR, calc. for ages 18 and older using theMDRD formula (not corrected for weight), is valid for stablerenal function. Glucose mass conc 164 mg/dL Critically high 74-109 [facility] Potassium reflex Mg 4.3 mEq/L Normal 3.5-5.1 [facility] Sodium molar conc 139 mmol/L Normal 132-144 [facility] Urea nitrogen mass conc 21 mg/dL Normal 8-23 [facility] CBC With Platelet No Differe ntialon 06-04-2018 Erythrocyte distribution width Auto Ratio (RBC) 13.4 % Normal 11.5-14.5 [facility] Hematocrit Auto Volume Fraction (Bld) 44.5 % Normal 37.0-47.0 [facility] Hemoglobin mass conc (Bld) 15.2 g/dL Normal 12.0-16.0 [facility] MCH Auto Entitic mass (RBC) 32.6 pg Critically high 27.0-31.3 [facility] MCHC Auto mass conc (RBC) 34.3 % Normal 33.0-37.0 [facility] MCV Auto Entitic volume (RBC) 95.1 fL Normal 82.0-100.0 [facility] Platelets Auto #/vol (Bld) 163 10*3/uL Normal 130-400 [facility] RBC Auto #/vol (Bld) 4.68 10*6/uL Normal 4.20-5.40 [facility] WBC Auto #/vol (Bld) 8.3 10*3/uL Normal 4.8-10.8 [facility] FLUORO FOR SURGICAL PROCEDUR ESon 06-04-2018 [...] the soft tissue anterior to the spinal column.[place] bone intact.Please see procedural note for more detailed.IMPRESSION: INTRAOPERATIVE PLIF L3-L5.Interpreted by:ANDRA Dominguezigned by:oJss Casas MD06/04/18inal result Normal [facility] POCT Glucoseon 06-04-2018 Glucose mass conc 106 mg/dL Normal 60-115 [facility] POC Performed on ACCU-CHEK Normal [facility] Surgical Specimenon 06-04-20 Surgical Specimen Invalid Interpretation Code [facility] Comment on above: Result Comment: [facility] [address] [place] [address] FINAL SURGICAL PATHOLOGY REPORTPatient Name: MARLENI DENNIS Accession No: [id number] Age Sex: 1950 Location: [facility] [id number] No: [id number] Collected: 06/04/2018Med Rec No: [id number] Received: 06/05/2018Attend Phys: SHAKA DESIRAE Completed: 06/07/2018Perform [...] two cassettes after a brief decalcification. ALDWA/SCDANCPT: [id number] [id number] ENGEL M.D. 06/07/2018 Electronically signed out by Page 1 of 1 Basic Metabolic Panelon Anion gap 3 molar conc 14 mmol/L Critically high 7-13 [facility] Calcium mass conc 9.7 mg/dL Normal 8.6-10.2 [facility] Chloride molar conc 100 mmol/L Normal 98-107 [facility] CO2 molar conc 25 mmol/L Normal 22-29 [facility] Creatinine mass conc 1.15 mg/dL Critically high 0.50-0.90 [facility] GFR/1.73 sq M predicted among blacks MDRD vol rate/area (S/P/Bld) 56.7 mL/min/{1.73_m2} Low >60 [facility] Comment on above: Result Comment: >60 mL/min/1.73m2 EGFR, calc. for ages 18 and older using theMDRD formula (not corrected for weight), is valid for stablerenal function. GFR/1.73 sq M.predicted MDRD vol rate/area 46.8 mL/min/{1.73_m2} Low >60 [facility] Comment on above: Result Comment: >60 mL/min/1.73m2 EGFR, calc. for ages 18 and older using theMDRD formula (not corrected for weight), is valid for stablerenal function. Glucose mass conc 107 mg/dL Normal 74-109 [facility] Potassium molar conc 3.6 mmol/L Normal 3.5-5.1 [facility] Sodium molar conc 139 mmol/L Normal 132-144 [facility] Urea nitrogen mass conc 21 mg/dL Normal 8-23 [facility] CBC With Platelet No Differe ntialon 05-23-2018 Erythrocyte distribution width Auto Ratio (RBC) 13.5 % Normal 11.5-14.5 [facility] Hematocrit Auto Volume Fraction (Bld) 44.4 % Normal 37.0-47.0 [facility] Hemoglobin mass conc (Bld) 15.5 g/dL Normal 12.0-16.0 [facility] MCH Auto Entitic mass (RBC) 33.0 pg Critically high 27.0-31.3 [facility] MCHC Auto mass conc (RBC) 34.9 % Normal 33.0-37.0 [facility] MCV Auto Entitic volume (RBC) 94.4 fL Normal 82.0-100.0 [facility] Platelets Auto #/vol (Bld) 199 10*3/uL Normal 130-400 [facility] RBC Auto #/vol (Bld) 4.71 10*6/uL Normal 4.20-5.40 [facility] WBC Auto #/vol (Bld) 7.0 10*3/uL Normal 4.8-10.8 [facility] Culture, MRSA Screenon 05-23 Culture, MRSA Screen O RDERED BY: CECILIA STONECE: Nares Nasal COLLECTED: 05/23/18 11:37ANTIBIOTICS AT SERGIO.: RECEIVED : 05/23/18 11:37Culture, MRSA Screen FINAL 05/24/18 12:57 No MRSA isolated Normal [facility] Culture, Urineon 05-23-2018 Culture, Urine OR DERED BY: CLIFTON STONE: Urine Clean Catch COLLECTED: 05/23/18 12:44ANTIBIOTICS AT SERGIO.: RECEIVED : 05/23/18 12:44Culture, Urine FINAL 05/25/18 10:55 No growth 24 hours Normal [facility] Prothrombin Timeon 8 INR Coag RelTime (PPP) 1.1 {INR} Normal [facility] Comment on above: Result Comment: Neri [...] Coag time (PPP) 11.0 s Normal 9.6-12.3 [facility] Type and Screen Capture 3 sc rn cellon 05-23-2018 Bilirubin mass conc PAT[facility]: [facility]NEY [facility] [id number] : 1950 SEX: FORDERED BY: CHASE Lua ORDERED : 05/23/2018 09:33 COLLECTED: 05/23/2018 11:41ORDER : [id number] RECEIVED : 05/23/2018 11:41 -----TEST NAME RESULT UNITS RANGES ABN FL STABORH Capture AB POS FAntibody 3 Cell Scrn Captu NEG F Normal [facility] Urinalysis, reflex to cultur winnie 05-23-2018 Urine Reflexed to Culture YES Normal [facility] Bilirubin Ql (U) Negative Normal Negative [facility] Clarity Nom (U) Clear Normal Clear [facility] Color Nom (U) Yellow Normal Straw/[place] [facility] Glucose Ql (U) Negative Normal Negative [facility] Hemoglobin Test strip Ql (U) Negative Normal Negative [facility] Ketones Ql (U) TRACE Abnormal Negative [facility] Leukocyte esterase Test strip Ql (U) TRACE Abnormal Negative [facility] Nitrite Test strip Ql (U) Negative Normal Negative [facility] pH Test strip (U) 6.0 [pH] Normal 5.0-9.0 [facility] Protein Test strip Ql (U) TRACE Abnormal Negative [facility] Specific gravity Relative Density (U) 1.010 Normal 1.005-1.03 [facility] Urobilinogen Test strip Qn (U) 0.2 {Dago'U}/dL Normal < 2.0 [facility] Urine Microscopicon 05-23-20 18 Casts LM.LPF #/area (Urine sed) 0-1 Hyaline Normal [facility] RBC Test strip #/vol (U) 0-2 Normal 0-2 [facility] Urine Amorphous 1+ Normal [facility] WBC #/vol (U) 3-5 Normal 0-5 [facility] XR SPINE ENTIRE (2-3 VIEWS)o n 05-23-2018 XR SPINE ENTIRE (2-3 VIEWS) PREOP NO DICTATION Interpreted by: Barb Wetzel MD Signed by: Barb Wetzel MD 06/08/18 Final result Normal [facility] Vital Signs Date Time Vital Sign Value Performing Clinician Facility 04-11-2025 12:14-0400 Body temperature 98 [degF] Jack Vogt II Work Phone: [facility] 04-11-2025 12:14-0400 Diastolic blood pressure 75 mm[Hg] Jack Vogt II Work Phone: [facility] 04-11-2025 12:14-0400 Heart rate 66 /min Jack Vogt II Work Phone: [facility] 04-11-2025 12:14-0400 Respiratory rate 18 /min Jack Vogt II Work Phone: [facility] 04-11-2025 12:14-0400 SaO2% (BldA) [Mass fraction] 90 % Jack Vogt II Work Phone: [facility] 04-11-2025 12:14-0400 Systolic blood pressure 171 mm[Hg] Jack Vogt II Work Phone: [facility] 04-11-2025 04:55-0400 Body weight 65.4 kg Jack Vogt II Work Phone: [facility] 04-10-2025 07:28-0400 Inhaled oxygen flow rate 3 L/min Jack Vogt II Work Phone: [facility] 04-09-2025 02:12-0400 Body height 154.94 cm Jackmaricruz Vogt II Work Phone: [facility] 04-09-2025 01:25-0400 SaO2% (BldA) [Mass fraction] 96 % Jack Vogt II Work Phone: [facility] 04-09-2025 01:09-0400 Diastolic blood pressure 77 mm[Hg] Jack Vogt II Work Phone: [facility] 04-09-2025 01:09-0400 Heart rate 71 /min Jack Vogt II Work Phone: [facility] 04-09-2025 01:09-0400 Inhaled oxygen flow rate 2 L/min Jack Vogt II Work Phone: [facility] 04-09-2025 01:09-0400 Respiratory rate 18 /min Jack Vogt II Work Phone: [facility] 04-09-2025 01:09-0400 Systolic blood pressure 176 mm[Hg] Jack Vogt II Work Phone: [facility] 04-08-2025 18:56-0400 Body temperature 98.5 [degF] Jack Vogt II Work Phone: [facility] 04-08-2025 17:59-0400 Body height 154.94 cm Jack Vogt II Work Phone: [facility] 04-08-2025 17:59-0400 Body weight 65.77 kg Jack Vogt II Work Phone: [facility] 04-08-2025 16:22-0400 Diastolic blood pressure 70 mm[Hg] Jack Vogt II Work Phone: [facility] 04-08-2025 16:22-0400 Systolic blood pressure 168 mm[Hg] Jack Vogt II Work Phone: [facility] 04-08-2025 16:02-0400 Body height 154.94 cm Jack Vogt II Work Phone: [facility] 04-08-2025 16:02-0400 Body mass index (BMI) [Ratio] 27.3 kg/m2 Jack Vogt II Work Phone: [facility] 04-08-2025 16:02-0400 Body weight 65.77 kg Jack Vogt II Work Phone: [facility] 04-08-2025 16:02-0400 Heart rate 63 /min Jack Vogt II Work Phone: [facility] 04-08-2025 16:02-0400 Respiratory rate 16 /min Jack Vogt II Work Phone: [facility] 04-08-2025 16:02-0400 SaO2% (BldA) [Mass fraction] 99 % Jackmaricruz Vogt II Work Phone: [facility] 04-02-2025 14:31-0400 Body temperature 97.5 [degF] Ana Rosa Carlos RADIO RIGGER Work Phone: [facility] 04-02-2025 14:31-0400 Heart rate 58 /min 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 RADIO RIGGER Work Phone: [facility] 04-02-2025 14:31-0400 SaO2% (BldA) [Mass fraction] 98 % 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 RADIO RIGGER Work Phone: [facility] 03-24-2025 16:44-0400 Body height 157.5 cm Jack Vogt MD Work Phone: [facility] 03-24-2025 16:44-0400 Body mass index (BMI) [Ratio] 26.34 kg/m2 Jack Vogt MD Work Phone: [facility] 03-24-2025 16:44-0400 Body weight 65.32 kg Jack Vogt MD Work Phone: [facility] 03-24-2025 16:44-0400 Diastolic blood pressure 56 mm[Hg] Jack Vogt MD Work Phone: [facility] 03-24-2025 16:44-0400 Heart rate 76 /min Jack Vogt MD Work Phone: [facility] 03-24-2025 16:44-0400 SaO2% (BldA) [Mass fraction] 99 % Jack Vogt MD Work Phone: [facility] 03-24-2025 16:44-0400 Systolic blood pressure 164 mm[Hg] Jack Vogt MD Work Phone: [facility] 02-25-2025 11:40-0400 Body height 157.5 cm Renetta Moncada RADIO RIGGER Work Phone: [facility] 02-25-2025 11:40-0400 Body mass index (BMI) [Ratio] 26.89 kg/m2 Renetta Moncada RADIO RIGGER Work Phone: [facility] 02-25-2025 11:40-0400 Body weight 66.68 kg Renetta Moncada NP Work Phone: [facility] 02-25-2025 11:40-0400 Diastolic blood pressure 64 mm[Hg] Renetta Moncada RADIO RIGGER Work Phone: [facility] 02-25-2025 11:40-0400 Heart rate 74 /min Renetta Moncada RADIO RIGGER Work Phone: [facility] 02-25-2025 11:40-0400 Respiratory rate 16 /min Renetta Moncada RADIO RIGGER Work Phone: [facility] 02-25-2025 11:40-0400 SaO2% (BldA) [Mass fraction] 97 % Renetta Moncada RADIO RIGGER Work Phone: [facility] 02-25-2025 11:40-0400 Systolic blood pressure 138 mm[Hg] Renetta Moncada RADIO RIGGER Work Phone: [facility] 01-02-2025 09:40-0400 Body height 158.8 cm Jack Vogt MD Work Phone: [facility] 01-02-2025 09:40-0400 Body mass index (BMI) [Ratio] 28.08 kg/m2 Jack Vogt MD Work Phone: [facility] 01-02-2025 09:40-0400 Body weight 70.76 kg Jack Vogt MD Work Phone: [facility] 01-02-2025 09:40-0400 Diastolic blood pressure 66 mm[Hg] Jack Vogt MD Work Phone: [facility] 01-02-2025 09:40-0400 Heart rate 62 /min Jack Vogt MD Work Phone: [facility] 01-02-2025 09:40-0400 SaO2% (BldA) [Mass fraction] 96 % Jack Vogt MD Work Phone: [facility] 01-02-2025 09:40-0400 Systolic blood pressure 138 mm[Hg] Jack Vogt MD Work Phone: [facility] 12-12-2024 11:41-0400 Body height 158.8 cm Jack Vogt MD Work Phone: [facility] 12-12-2024 11:41-0400 Body mass index (BMI) [Ratio] 28.44 kg/m2 Jack Vogt MD Work Phone: [facility] 12-12-2024 11:41-0400 Body weight 71.67 kg Jack Vogt MD Work Phone: [facility] 12-12-2024 11:41-0400 Diastolic blood pressure 62 mm[Hg] Jack Vogt MD Work Phone: [facility] 12-12-2024 11:41-0400 Heart rate 65 /min Jack Vogt MD Work Phone: [facility] 12-12-2024 11:41-0400 SaO2% (BldA) [Mass fraction] 96 % Jack Vogt MD Work Phone: [facility] 12-12-2024 11:41-0400 Systolic blood pressure 132 mm[Hg] Jack Vogt MD Work Phone: [facility] 11-18-2024 13:19-0500 Blood Pressure Location Alfredo CARDENAS [facility] 11-18-2024 13:19-0500 Body temperature 98.6 [degF] Alfredo CARDENAS [facility] 11-18-2024 13:19-0500 Diastolic blood pressure 75 mm[Hg] Alfredo CARDENAS [facility] 11-18-2024 13:19-0500 Heart rate 70 /min Alfredocodi CARDENAS [facility] 11-18-2024 13:19-0500 Respiratory rate 16 /min Alfredo CARDENAS [facility] 11-18-2024 13:19-0500 Systolic blood pressure 135 mm[Hg] Alfredocodi CARDENAS [facility] 11-23-2023 14:31-0500 Body height 160.02 cm II Jack Vogt Work Phone: [facility] 11-23-2023 14:31-0500 Body mass index (BMI) [Ratio] 31 kg/m2 II Jack Vogt Work Phone: [facility] 11-23-2023 14:31-0500 Body weight 79.46 kg II Jack Vogt Work Phone: [facility] 10-23-2023 12:31-0500 Blood Pressure Location Alfredo CARDENAS [facility] 10-23-2023 12:31-0500 Diastolic blood pressure 83 mm[Hg] Alfredo CARDENAS [facility] 10-23-2023 12:31-0500 Heart rate 62 /min Alfredo CARDENAS [facility] 10-23-2023 12:31-0500 Respiratory rate 16 /min Alfredo CARDENAS [facility] 10-23-2023 12:31-0500 Systolic blood pressure 163 mm[Hg] Alfredo CARDENAS [facility] 09-26-2022 12:59-0500 Blood Pressure Location Alfredo CARDENAS [facility] 09-26-2022 12:59-0500 Diastolic blood pressure 76 mm[Hg] Alfredo CARDENAS [facility] 09-26-2022 12:59-0500 Heart rate 78 /min Alfredo CARDENAS [facility] 09-26-2022 12:59-0500 Respiratory rate 16 /min Alfredo CARDENAS [facility] 09-26-2022 12:59-0500 Systolic blood pressure 124 mm[Hg] Alfredo CARDENAS [facility] 03-04-2022 10:16-0400 Blood Pressure Location Alfredo CARDENAS [facility] 03-04-2022 10:16-0400 Diastolic blood pressure 70 mm[Hg] Alfredo CARDENAS [facility] 03-04-2022 10:16-0400 Heart rate 56 /min Alfredo CARDENAS [facility] 03-04-2022 10:16-0400 Respiratory rate 16 /min Alfredo CARDENAS [facility] 03-04-2022 10:16-0400 Systolic blood pressure 129 mm[Hg] Alfredo CARDENAS [facility] Encounters Encounter Date Encounter Type Care Provider Facility Start: 11-24-2025 ambulatory Alfredo CARDENAS Facili ty:[facility] Start: 04-08-2025 End: 04-11-2025 Evaluation and management of inpatient Rajiv Valdez MD -[address] [place] [address] Work Phone: Start: 04-08-2025 Non-patient / Non-visit Andrew Arrington MD -[facility] Work Phone: Start: 04-08-2025 End: 04-08-2025 ambulatory Jakc Vogt II Work Phone: [facility] Work Phone: Start: 04-08-2025 End: 04-08-2025 Patient encounter procedure Elsy Patino MD -[facility] [place] Work Phone: Start: 04-04-2025 End: 04-04-20[facility] Start: 04-02-2025 End: 04-02-2025 Home visit est pt mod-hi severity 40 minutes 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 RADIO RIGGER Work Phone: [facility] Comment on above: Benign essential hyp ertension (Primary Dx); Chronic kidney disease, stage 4 (severe) (HCC); Localized edema; Right flank pain; Routine lab draw Start: 04-02-2025 End: 04-02-2025 Patient encounter status 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 RADIO RIGGER Work Phone: [facility] Start: 03-25-2025 End: 03-25-2025 Refill Summer Feliciano FUGITIVE DETECTIVE [facility] Comment on above: Benign essential hyp ertension ; Gastroesophageal reflux disease, unspecified whether esophagitis present; Insomnia due to medical condition Start: 03-24-2025 End: 03-24-2025 ambulatory JACK VOGT Not Available Start: 03-24-2025 End: 03-24-2025 Transitional care manage srvc 14 day discharge Jack Vogt MD Work Phone: [facility] Comment on above: 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); Type 2 diabetes mellitus with stage 4 chronic kidney disease, without long-term current use of insulin (HCC); Insomnia due to medical condition; Chronic kidney disease, stage 4 (severe) (HCC); Primary osteoarthritis of both knees Start: 03-14-2025 Evaluation and manag ement of inpatient [facility] Start: 03-13-2025 Evaluation and manag ement of inpatient [facility] Start: 03-13-2025 Evaluation and manag ement of inpatient ERICKSON T [facility] Start: 03-13-2025 Evaluation and manag ement of inpatient ERICKSON Robbins [facility] Start: 03-13-2025 End: 03-20-2025 Evaluation and management of inpatient BARBY KAMARA [facility] Start: 02-25-2025 End: 02-25-2025 Bamboo flowsheet Renetta Moncada RADIO RIGGER Work Phone: [facility] Start: 02-25-2025 End: 02-25-2025 Bamboo flowsheet Renetta Moncada RADIO RIGGER Work Phone: [facility] Start: 02-25-2025 End: 02-25-2025 Office outpatient visit 25 minutes Renetta Moncada RADIO RIGGER Work Phone: [facility] Comment on above: Thyroid nodule (CMS/ HCC) (Primary Dx); 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/HCC); Chronic kidney disease, stage 4 (severe) (CMS/HCC); Hair loss; Other fatigue; Weight loss; Depressive disorder (CMS/HCC); Decreased estrogen level Start: 02-25-2025 End: 02-25-2025 ambulatory RENETTA MONCADA Not Available Start: 01-02-2025 End: 01-02-2025 Bamboo flowsheet Jack Vogt MD Work Phone: [facility] Start: 01-02-2025 End: 01-02-2025 Bamboo flowsheet Jack Vogt MD Work Phone: [facility] Start: 01-02-2025 End: 01-02-2025 ambulatory JACK VOGT Not Available Start: 01-02-2025 End: 01-02-2025 Office outpatient visit 25 minutes Jack Vogt MD Work Phone: [facility] Comment on above: 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) (CMS/HCC) (Primary Dx); Pulmonary fibrosis, unspecified (CMS/HCC); Localized edema; Anxiety; Depressive disorder (CMS/HCC) Start: 12-12-2024 End: 12-12-2024 Bamboo flowsheet Jack Vogt MD Work Phone: [facility] Start: 12-12-2024 End: 12-12-2024 Bamboo flowsheet Jack Vogt MD Work Phone: [facility] Start: 12-12-2024 End: 12-12-2024 ambulatory JACK VOGT Not Available Start: 12-12-2024 End: 12-12-2024 Assay of hemosiderin, quant Jack Vogt MD Work Phone: [facility] Work Phone: Start: 12-12-2024 End: 12-12-2024 Patient encounter procedure Jack Vogt MD Work Phone: [facility] Comment on above: Routine general medi billie examination at [facility] care facility (Primary Dx); ACP (advance care planning); Spinal stenosis, lumbar region with neurogenic claudication; Stage 3b chronic kidney disease (HCC) (CMS/HCC); Pulmonary fibrosis, unspecified (CMS/HCC); Type 2 diabetes mellitus with diabetic peripheral angiopathy without gangrene (CMS/HCC); Localized edema Start: 11-18-2024 End: 11-18-2024 ambulatory Alfredo CARDENAS Facility:[facility] Start: 11-18-2024 End: 11-18-2024 Patient encounter procedure Alfredo CARDENAS [facility] Start: 11-03-2024 End: 11-04-2024 Refill Jack Vogt MD Work Phone: [facility] Comment on above: Anxiety Start: 09-30-2024 End: 09-30-2024 ambulatory Alfredo CARDENAS Facility:[facility] Start: 09-30-2024 End: 09-30-2024 Patient encounter procedure Alfredo CARDENAS [facility] Start: 09-16-2024 End: 09-19-2024 Refsweta Vogt MD Work Phone: [facility] Comment on above: Insomnia due to medi billie condition Start: 09-13-2024 End: 09-13-2024 Clinisync Result Encounter Generic External Data Provider [facility] Unsolicited Start: 09-13-2024 End: 09-13-2024 Clinisync Result Encounter Generic External Data Provider [facility] Unsolicited Start: 04-24-2024 End: 04-25-2024 ambulatory [facility] Start: 03-19-2024 End: 03-19-2024 ambulatory Maria Luisa X Orzech Facility:[facility] Start: 03-19-2024 End: 03-19-2024 Patient encounter procedure Maria Luisa X Orzech [facility] Start: 03-05-2024 ambulatory Maria Luisa X Orzech Facilit y:[facility] Start: 02-05-2024 End: 02-05-2024 ambulatory II Jack Vogt Work Phone: [facility] Work Phone: Start: 02-05-2024 End: 02-05-2024 Patient encounter procedure II Jack Vogt Work Phone: [facility] Work Phone: Start: 11-23-2023 End: 11-23-2023 Patient encounter procedure II Jack Vogt Work Phone: [facility] Work Phone: Start: 10-23-2023 End: 10-23-2023 Patient encounter procedure Alfredo CARDENAS [facility] Start: 01-18-2023 End: 01-19-2023 ambulatory CARLYN DAR Facility:[facility] Start: 01-10-2023 End: 01-11-2023 ambulatory CARLYN DAR Facility:[facility] Start: 09-26-2022 End: 09-26-2022 Patient encounter procedure Alfredo CARDENAS [facility] Start: 09-07-2022 End: 09-08-2022 ambulatory RENETTA MONCADA Facility:[facility] Start: 08-29-2022 End: 08-30-2022 ambulatory ALFREDO CARDENAS Facility:[facility] Start: 03-16-2022 End: 03-17-2022 ambulatory JOHN ZHOU Facility:[facility] Start: 03-04-2022 End: 03-04-2022 Patient encounter procedure Alfredo CARDENAS [facility] Start: 02-22-2022 End: 02-23-2022 ambulatory ALFREDO CARDENAS Facility:[facility] Start: 02-16-2022 End: 02-17-2022 ambulatory JOHN ADAMSER Facility:[facility] Start: 02-04-2022 End: 02-05-2022 ambulatory JOHN ZHOU Facility:[facility] Start: 02-02-2022 End: 02-02-2022 Patient encounter procedure II Jack Vogt Work Phone: [facility] Start: 01-31-2022 End: 02-01-2022 ambulatory [facility] Facility:[facility] Start: 06-04-2018 End: 06-07-2018 Evaluation and management of inpatient [facility] Start: 05-23-2018 End: 05-26-2018 Patient encounter [facility] Start: 05-23-2018 End: 05-28-2018 Patient encounter [facility] Procedures Date Procedure Procedure Detail Performing Clinician Start: 04-08-2025 Antibody screen Tony allison Comment on above: Result Comment: PERF ORMED BY: [facility] [address] [place] [address] PATHOLOGIST WALLBOARD WORKER ELIZABETH MOREL M.D. Start: 04-08-2025 Plain chest X-ray Edgard Vogt II Work Phone: Start: 04-08-2025 CT of abdomen and pe lvis without contrast Jack Vogt II Work Phone: Start: 12-12-2024 Hemoglobin glycosyla mare a1c Jack Vogt MD Work Phone: Start: 09-13-2024 [facility] CREATININE Generic External Data Provider Start: 02-05-2024 End: 02-05-2024 Screening mammography of bilateral breasts II Jack Vogt Work Phone: Start: 11-23-2023 Pelvis X-ray II Jack Vogt Work Phone: Start: 11-23-2023 X-ray of both knees II Jack Sin Work Phone: Start: 02-02-2022 Screening mammograph y of bilateral breasts II Jack Sin Work Phone: Start: 03-17-2021 Colonoscopy Generic Pr ovider Start: 01-09-2020 History of coronary artery bypass grafting History of coronary artery bypass surgery Generic Provider Start: 01-09-2020 History of placement of stent for coronary artery disease History of coronary artery stent placement Generic Provider Start: 06-07-2018 INCENTIVE SPIROMETRY RT SHAKA DESIRAE [...] DESIRAE Start: 06-05-2018 NURSING COMMUNICATION B O DESIARE Start: 06-05-2018 TURN PATIENT SHAKA DESIRAE Start: [...] RT SHAKA DESIRAE Start: 06-04-2018 PLACE INTERMITTENT PNEUMATIC COMPRESSION DEVICE SHAKA DESIRAE Start: 06-04-2018 PULSE [...] SHAKA DESIRAE Start: 05-23-2018 Cul prsmptv pthgnc organism scrn w/colony estimj SHAKA DESIRAE Start: 05-23-2018 [...] SHAKA DESIRAE Cholecystectomy Alfredo WILSON Colonoscopy Alfredo CARDENAS Procedure on back Alfredo MARTINEZ Tonsillectomy Alfredo CARDENAS Plan of Treatment Date Care Activity Detail Author Start: 03-17-2031 Screening for malign ant neoplasm of colon [facility] Start: 12-12-2025 Medicare Annual Well ness (AWV) Medicare Annual Wellness (AWV) [facility] Start: 05-26-2025 End: 05-26-2025 Patient encounter procedure 05/26/2025 3:30 PM EDT Office Visit [facility] [address] [facility] [address] [place] [address] Jack Vogt MD [address] [facility] [address] [place] [address] [facility] Start: 05-19-2025 Influenza vaccination [facility] Start: 04-11-2025 [facility] Start: 04-10-2025 Referral to rehabili tation physician [facility] Start: 04-10-2025 [facility] Start: 04-09-2025 [facility] Start: 04-08-2025 Physical therapy procedure [facility] Start: 04-08-2025 Referral to occupati onal therapist [facility] Start: 04-08-2025 [facility] Start: 04-08-2025 Referral to bottom painter [facility] Start: 04-08-2025 Referral to set up machinist [facility] Start: 04-08-2025 Hospital admission [facility] Start: 04-02-2025 End: 04-02-2026 CBC W Auto Differential panel - Blood CBC and differential Lab Routine Benign essential hypertension Chronic kidney disease, stage 4 (severe) (HCC) Localized edema Expected: 04/02/2025 (Approximate), Expires: 04/02/2026 [facility] Work Phone: Comment on above: Expected: 04/02/2025 (Approximate), Expires: 04/02/2026 Start: 04-02-2025 End: 04-02-2026 Comprehensive metabolic 2000 panel - Serum or Plasma Comprehensive metabolic panel Lab Routine Benign essential hypertension Chronic kidney disease, stage 4 (severe) (HCC) Localized edema Expected: 04/02/2025 (Approximate), Expires: 04/02/2026 [facility] Comment on above: Expected: 04/02/2025 (Approximate), Expires: 04/02/2026 Start: 04-02-2025 End: 04-02-2026 URINALYSIS, COMPLETE W/REFLEX TO CULTURE URINALYSIS, COMPLETE W/REFLEX TO CULTURE Lab Routine Right flank pain Expected: 04/02/2025 (Approximate), Expires: 04/02/2026 [facility] Healthcare Comment on above: Expected: 04/02/2025 (Approximate), Expires: 04/02/2026 Start: 03-14-2025 Hemoglobin A1c measurement Neeta betes: Hemoglobin A1C [facility] Start: 02-25-2025 End: 02-25-2026 DXA Skeletal system Views for bone density DEXA bone density Imaging Routine Decreased estrogen level Expected: 02/25/2025, Expires: 02/25/2026 [facility] Comment on above: Expected: 02/25/2025 , Expires: 02/25/2026 Start: 02-25-2025 End: 02-25-2026 US Thyroid gland US thyroid Imaging Routine Thyroid nodule ([facility]) Hair loss Other fatigue Weight loss Expected: 02/25/2025, Expires: 02/25/2026 [facility] Work Phone: Comment on above: Expected: 02/25/2025 , Expires: 02/25/2026 Start: 02-25-2025 End: 02-25-2025 Patient encounter procedure 02/25/2025 11:30 AM EDT Office Visit [facility] [address] [facility] [address] [place] [address] Renetta Moncada NP [address] [facility] [address] [place] [address] Arrived [facility] Comment on above: Arrived Start: 02-04-2025 Screening for malign ant neoplasm of breast Mammogram [facility] Start: 01-02-2025 End: 01-02-2025 Patient encounter procedure 01/02/2025 9:30 AM EDT Office Visit [facility] [address] [facility] [address] [place] [address] Jack Vogt MD [address] [facility] [address] [place] [address] [facility] Start: 12-12-2024 End: 12-12-2025 Comprehensive metabolic 2000 panel - Serum or Plasma Comprehensive metabolic panel Lab Routine Stage 3b chronic kidney disease (HCC) (CMS/HCC) Expected: 12/12/2024 (Approximate), Expires: 12/12/2025 [facility] Healthcare Comment on above: Expected: 12/12/2024 (Approximate), Expires: 12/12/2025 Start: 12-12-2024 End: 12-12-2025 Lipid 1996 panel - Serum or Plasma Lipid panel Lab Routine Type 2 diabetes mellitus with diabetic peripheral angiopathy without gangrene ([facility]/HCC) Expected: 12/12/2024 (Approximate), Expires: 12/12/2025 [facility] Healthcare Comment on above: Expected: 12/12/2024 (Approximate), Expires: 12/12/2025 Start: 12-12-2024 Medicare Annual Well ness (AWV) Medicare Annual Wellness (AWV) [facility] Start: 12-12-2024 End: 12-12-2025 Thyrotropin [Units/volume] in Serum or Plasma TSH Lab Routine Localized edema Expected: 12/12/2024 (Approximate), Expires: 12/12/2025 [facility] Work Phone: Comment on above: Expected: 12/12/2024 (Approximate), Expires: 12/12/2025 Start: 12-12-2024 End: 12-12-2025 Thyroxine (T4) free [Mass/volume] in Serum or Plasma T4, free Lab Routine Localized edema Expected: 12/12/2024 (Approximate), Expires: 12/12/2025 [facility] Comment on above: Expected: 12/12/2024 (Approximate), Expires: 12/12/2025 Start: 12-12-2024 End: 12-12-2025 Triiodothyronine (T3) Free [Mass/volume] in Serum or Plasma T3, free Lab Routine Localized edema Expected: 12/12/2024 (Approximate), Expires: 12/12/2025 [facility] Comment on above: Expected: 12/12/2024 (Approximate), Expires: 12/12/2025 Start: 12-12-2024 Urine screening for protein Di abetes: Urine Protein Screening [facility] Start: 12-12-2024 End: 12-12-2024 Patient encounter procedure 12/12/2024 11:30 AM EDT Office Visit [facility] [address] [facility] [address] [place] [address] Jack Vogt MD [address] [facility] [address] [place] [address] [facility] Start: 11-18-2024 Glaucoma screening Diabetes: R etinopathy Screening [facility] Start: 06-20-2024 Hemoglobin A1c measurement Neeta betes: Hemoglobin A1C [facility] Start: 05-19-2024 Influenza vaccination Influenza Vacc ine (#1) [facility] Start: 1950 Screening for malign ant neoplasm of colon [facility] Albumin/Globulin ratio [facility] Anion gap measurement [facility] aPTT in Platelet poo r plasma by Coagulation assay [facility] Basophils [#/volume] in Blood by Automated count [facility] Basophils/100 leukoc ytes in Blood by Automated count [facility] CBC W Auto Different ial panel - Blood CBC and differential Lab Routine Stage 3b chronic kidney disease (HCC) (CMS/HCC) Ordered: 12/12/2024 [facility] Comment on above: Ordered: 12/12/2024 Eosinophils/100 leuk ocytes in Blood by Automated count [facility] Erythrocyte distribu tion width [Ratio] by Automated count [facility] Erythrocytes [#/volu me] in Blood [facility] Globulin [Mass/volum e] in Serum [facility] Hematocrit [Volume Fraction] of Blood [facility] Hemoglobin [Mass/vol ume] in Blood [facility] INR in Platelet poor plasma by Coagulation assay [facility] Leukocytes [#/volume ] corrected for nucleated erythrocytes in Blood by Automated coun [facility] Leukocytes [#/volume ] in Blood [facility] Lymphocytes [#/volum e] in Blood by Automated count [facility] Lymphocytes/100 leuk ocytes in Blood by Automated count [facility] MCH [Entitic mass] b y Automated count [facility] MCHC [Mass/volume] b y Automated count [facility] MCV [Entitic volume] by Automated count [facility] Monocytes [#/volume] in Blood by Automated count [facility] Monocytes/100 leukoc ytes in Blood by Automated count [facility] Neutrophils [#/volum e] in Blood by Automated count [facility] Neutrophils/100 leuk ocytes in Blood by Automated count [facility] Nucleated erythrocyt es [Presence] in Blood by Automated count [facility] Patient Education Hope Pamphlet [facility] Work Phone: Patient referral [facility] Work Phone: Platelet mean volume [Entitic volume] in Blood by Automated count [facility] Platelets [#/volume] in Blood [facility] Prothrombin time (PT) [facility] Renal function 2000 panel - Serum or Plasma [facility] Immunizations Immunization Date Immunization Notes Care Provider Fa cility 07-04-2022 influenza virus vacc ine, unspecified formulation Alfredo CARDENAS [facility] 07-04-2022 Influenza, Seasonal, Quadrivalent, Adjuvanted Generic Provider [facility] 07-04-2022 Moderna Bivalent Cervantes ster Vaccination Generic Provider [facility] 07-04-2022 SARS-CoV-2 (COVID-19 ) [id number] Alfredo CARDENAS [facility] 06-24-2021 influenza virus vacc ine, unspecified formulation Alfredo CARDENAS [facility] 06-24-2021 Influenza, High-dose Seasonal, Quadrivalent, Preservative Free Generic Provider [facility] 06-24-2021 SARS-CoV-2 (COVID-19 ) mRNA BNT-162b2 vax Alfredo CARDENAS [facility] Comment on above: Result Comment: 2022: TPV70 11-17-2020 SARS-CoV-2 (COVID-19 ) mRNA BNT-162b2 vax Alfredo CARDENAS [facility] Comment on above: Result Comment: 2022: TPV70 10-27-2020 SARS-CoV-2 (COVID-19 ) mRNA BNT-162b2 vax Alfredo CARDENAS [facility] Comment on above: Result Comment: 2022: TPV70 07-08-2020 influenza virus vacc ine, unspecified formulation Alfredo CARDENAS [facility] 07-08-2020 Influenza, Seasonal, Quadrivalent, Adjuvanted Generic Provider [facility] 07-08-2020 Smallpox Monkeypox, Live Attenuated, Preservative Free Generic Provider [facility] 04-01-2015 pneumococcal polysaccharide vaccine, 23 valent Generic Provider [facility] Payers Date Payer Category Payer Medicare [id number] 2025 Self-pay [id number] 2023 Medicare (Managed Care) 1.2. [id number] 2017 Medicare [id number] 1959 Medicare [id number] 1959 Private Health Insurance [facility] [id number] 1950 Unknown [id number] [id number] 1950 Unknown [id number] .16.840.1.857704.3.579.2.593 1949 Unknown [id number] ..840.1.833846.3.579.2.593 1949 Unknown [id number] 2.16.840.1.427907.3.579.2.593 1949 Unknown [id number] 2.16.840.1.822731.3.579.2.593 1949 Unknown [id number] 2.16.840.1.888295.3.579.2.593 1949 Unknown [id number] 2.16.840.1.996053.3.579.2.593 1949 Unknown [id number] 2.16.840.1.944713.3.579.2.593 1949 Unknown [id number] 2.16.840.1.277228.3.579.2.593 1949 Unknown [id number] 2.16.840.1.041032.3.579.2.593 1949 Unknown [id number] 2.16.840.1.853077.3.579.2.727 1949 Unknown [id number] 2.16.840.1.236147.3.579.2.727 1949 Unknown [id number] 2.16.840.1.191623.3.579.2.727 1949 Unknown [id number] 2.16.840.1.703838.3.579.2.727 1949 Unknown [id number] 2.16.840.1.207903.3.579.2.727 1949 Unknown [id number] 2.16.840.1.935950.3.579.2.1259 1949 Unknown [id number] 2.16.840.1.846847.3.579.2.1259 1949 Unknown [id number] 2.16.840.1.359433.3.579.2.1259 1949 Unknown [id number] 2.16.840.1.702583.3.579.2.1259 Medicare Medicare [id number] Private Health Insurance [facility] [id number] Unknown Gary BC/BS [id number] Unknown [id number] 2.16.840.1.756223.3.579.2.531 Social History Date Type Detail Facility Start: 03-25-2021 End: 04-10-2025 Tobacco smoking status NHIS Ex-smoker (finding) [facility] Start: 03-20-2024 End: 02-25-2025 History of tobacco use [facility] Work Phone: Start: 1950 Sex Assigned At Female F [facility] Tobacco smoking status Never [facility] Start: 05-09-2023 Tobacco smoking status NHIS Never smoked tobacco [facility] Start: 05-09-2023 Tobacco use and exposure Smokeless tobacco non-user [facility] Start: 03-20-2024 End: 04-02-2025 Alcoholic beverage intake Not Asked [facility] Start: 03-20-2024 End: 02-25-2025 History of Social function [facility] Start: 05-10-2023 Alcohol Comment caffeine yes type:coffee [facility] Start: 1950 Sex assigned at Not on file [facility] Start: 04-08-2025 Tobacco smoking status NHIS Current some day smoker [facility] Sex Female (finding) [facility] Start: 04-09-2025 End: 04-11-2025 SDOH Follow up SDOH Follow up [facility] Work Phone: NEGATED: Highlighted row [facility] Goals Date Patient Goal Desired Activity /State Personal health goal Functional Status Date Assessment Result Facility 02-25-2025 Patient Health [facility] ionnaire 2 item (PHQ-2) [Reported] [facility] 02-25-2025 PHQ-9 quick depressi on assessment panel [Reported.PHQ] [facility] 11-18-2024 Functional Status N/A [facility] 03-19-2024 Functional Status N/A [facility] 10-23-2023 Functional Status N/A [facility] 09-26-2022 Functional Status N/A [facility] 03-04-2022 Functional Status N/A [facility] Clinical Notes 03-04-2022 to 04-09-2025 Note Date & Type Note Facility 04-09-2025 History and physi billie note Note Date/Time April 08, 2025 11:50pm [facility] [address] [place] [address] Hospitalist H&P Signed Patient: Marleni Dennis MR#: [id number] : 1950 Acct:[id number] Age/Sex: 74 / F Adm Date: 5 Loc: Room: [address] [place] [address] Type: ADM IN Attending Dr: Rajiv Trejo MD Copies to: MD Rajiv Miller II, MD~ HPI DATE OF EXAMINATION: 04/08/25 CHIEF COMPLAINT: abnormal labs HISTORY OF PRESENT ILLNESS: Patient is a 74-year-old female with medical history hypertension, hyperlipidemia, coronary artery disease disease status post PCI, peripheral vascular disease status post 3 stent placement in bilateral femoral arteries, and GI bleed, anemia. Patient follows with her PCP in [place] and was referredto nephrology clinic for worsening kidney function. Upon initial evaluation at the nephrology clinic today patient was sent here to the ER given worsening kidney function, hypertensive, GI bleed evaluations. Here in the ER, patient states that she did not even know about her kidney function getting worse until she was referred to nephrology. She does report that she has been having black stools over the past 4 days, she does take Eliquis and aspirin, denies NSAID use. Denies dizziness or lightheadedness. She thought her black stools was dueto eating black cherries. Here in the ER noted to be hypertensive with blood pressure 200s over 90s. She was medicated with Coreg and hydralazine with no improvement. Kidney function noted with creatinine 3.42, BUN 71, unclear exact recent baseline, last values we have here in our charts in 2020 with creatinine 1.28. Chest x-ray showed CHF findings with vascular congestion, CT abdomen pelvis was done with no evidence of obstructive uropathy, anasarca and mesenteric edema noted, urinary bladder wall thickening, underdistention versus cystitis, minimal ascites, diverticulosis, 3 cm fluid collection adjacent to theright greater trochanter, patient does report that she fell on the side however she does not complain of any pain or weakness related to this. She was noted with a rash on her right flank area, thought to be shingles and was given Valtrex in the ER. Decision was made to admit her for further evaluation management. Review of Systems Review of Systems All other systems reviewed & are negative unless noted below or in HPI [facility] Medical History Iron deficiency anemia Former smoker Pulmonary embolism DVT (deep venous thrombosis) CAD (coronary artery disease) Osteoarthritis Fibromyalgia Surgical History Hx of CABG H/O heart artery stent Family History Mother Myocardial infarction Father Myocardial infarction Social History Smoking Status: Former smoker Substance Use Type: None Meds Medications and Allergies Allergies iodine Allergy (Verified 04/08/25 18:01) Anaphylaxis pneumococcal vaccine (From Pneumovax-23) Allergy (Verified 04/08/25 18:01) Edema Qsegkst-PDO-JtY Reductase Inhibitor (Cfyrxla-Okh-Ckt Reductase Inhibitor) Allergy (Verified 04/08/25 18:01) Unknown Reaction Home Medications apixaban 5 mg tablet (Eliquis) 2.5 mg PO BID 03/24/21 [History Confirmed 04/08/25] Held on 03/27/21. Instructions: Resume on 03/31/21. aspirin 81 mg tablet 81 mg PO DAILY 03/24/21 [History Confirmed 04/08/25] ezetimibe 10 mg tablet 10 mg PO DAILY 03/24/21 [History Confirmed 04/08/25] fenofibrate nanocrystallized 145 mg tablet 145 mg PO DAILY 03/24/21 [History Confirmed 04/08/25] pantoprazole 40 mg tablet,delayed release 40 mg PO DAILY 03/24/21 [History Confirmed 04/08/25] carvedilol 25 mg tablet 25 mg PO BID 04/08/25 [History Confirmed 04/08/25] clonidine HCl 0.1 mg tablet 0.1 mg PO TID 04/08/25 [History Confirmed 04/08/25] doxazosin 2 mg tablet 2 mg PO DAILY 04/08/25 [History Confirmed 04/08/25] escitalopram oxalate 5 mg tablet 5 mg PO DAILY 04/08/25 [History Confirmed 04/08/25] hydralazine 100 mg tablet 100 mg PO TID 04/08/25 [History Confirmed 04/08/25] melatonin 3 mg tablet 6 mg PO QHS 04/08/25 [History Confirmed 04/08/25] nifedipine 90 mg tablet,extended release 24 hr 90 mg PO BID 04/08/25 [History Confirmed 04/08/25] sennosides 8.6 mg tablet (senna) 8.6 mg PO QHS 04/08/25 [History Confirmed 04/08/25] zolpidem 10 mg tablet 5 mg PO HS PRN insomnia 04/08/25 [History Confirmed 04/08/25] Exam Physical Exam Vital Signs: Temp Pulse Resp BP Pulse Ox O2 Del Method 98.5 F 72 14 209/86 H 93 L Room Air 04/08/25 18:56 04/08/25 21:29 04/08/25 20:37 04/08/25 21:29 04/08/25 20:37 04/08/25 20:37 Narrative: Const General: cooperative HEENT Normal oropharyngeal mucosa without any ulcers or exudates Eyes: Conjunctiva normal Pulmonary Auscultation: Diminished breath sounds, mild crackles, no wheezes Cardiovascular Rate: normal rate Rhythm: regular rhythm Heart Sounds: S1 normal, S2 normal and no murmurs GI Inspection: non-distended Palpation: soft, not firm and nontender. No rigidity or rebound. stripe of rash extending from lower back mid spine medially to her R hip area, itchy, redness, small blisters. Deferred Neuro General: alert, awake and oriented x3. No obvious new focal deficit Musculoskeletal: normal range of motion Extrem General: no cyanosis, ++ pedal edema Psych Appearance: appropriate affect. Grossly normal. pleasant. Results - Hospitalist H&P Lab Results Labs: Laboratory Last Values Corrected WBC 4.4 X10E3/uL (3.8-11.6) 04/08/25 18:54 Uncorrected WBC Count 4.4 x10E3/uL (3.8-11.6) 04/08/25 18:54 RBC 3.34 x10E6/uL (3.60-5.00) L 04/08/25 18:54 Hgb 10.0 g/dL (11.8-15.4) L 04/08/25 18:54 Hct 29.5 % (34.0-46.4) L 04/08/25 18:54 MCV 88.4 fl (80-100) 04/08/25 18:54 MCH 30.1 pg (24.7-34.3) 04/08/25 18:54 MCHC 34.0 g/dL (32.0-35.0) 04/08/25 18:54 RDW 16.0 % (11.9-15.3) H 04/08/25 18:54 Plt Count 211 x10E3/uL (150-450) 04/08/25 18:54 MPV 9.5 fl (6.3-10.7) 04/08/25 18:54 Neut % (Auto) 63.1 % (.) 04/08/25 18:54 Lymph % (Auto) 23.3 % (.) 04/08/25 18:54 [place] % (Auto) 10.0 % (.) 04/08/25 18:54 Eos % (Auto) 2.6 % (.) 04/08/25 18:54 Baso % (Auto) 1.0 % (.) 04/08/25 18:54 Nucleat RBC Rel Count 0.1 /100 WBC (0-0.5) 04/08/25 18:54 Neut # (Auto) 2.8 x10E3/uL (1.8-7.7) 04/08/25 18:54 Lymph # (Auto) 1.0 x10E3/uL (1.00-4.8) 04/08/25 18:54 [place] # (Auto) 0.4 x10E3/uL (0.0-0.8) 04/08/25 18:54 Eos # (Auto) 0.1 x10E3/uL (0.0-0.45) 04/08/25 18:54 Baso # (Auto) 0.0 x10E3/uL (0.0-0.2) 04/08/25 18:54 Monocyte Dist Width 17.55 % (0.00-20.00) 04/08/25 18:54 PT 16.2 Seconds (9.0-12.9) H 04/08/25 18:54 INR 1.4 04/08/25 18:54 APTT 31.6 Seconds (25.1-36.5) 04/08/25 18:54 PHA Creatinine Clear 12.34 04/08/25 18:54 Sodium 137 mmol/L (136-145) 04/08/25 18:54 Potassium 4.3 mmol/L (3.5-5.1) 04/08/25 18:54 Chloride 101 mmol/L (98-107) 04/08/25 18:54 Carbon Dioxide 25.2 mmol/L (21.0-31.0) 04/08/25 18:54 Anion Gap 15.1 mEq/L (6.0-15.0) H 04/08/25 18:54 BUN 71 mg/dL (7-25) H 04/08/25 18:54 Creatinine 3.42 mg/dL (0.60-1.20) H 04/08/25 18:54 Est GFR (CKD-EPI) 13.433 mL/Min 04/08/25 18:54 Glucose 110 mg/dL (70-100) H 04/08/25 18:54 Calcium 9.1 mg/dL (8.6-10.3) 04/08/25 18:54 Total Bilirubin 0.6 mg/dl (0.3-1.0) 04/08/25 18:54 AST 22 U/L (13-39) 04/08/25 18:54 ALT 6 U/L (7-52) L 04/08/25 18:54 Alkaline Phosphatase 38 U/L (34-104) 04/08/25 18:54 Troponin I High Sens 25 ng/L (0-15) H 04/08/25 18:54 B-Natriuretic Peptide 1455.0 pg/mL (5-100) H 04/08/25 18:54 Total Protein 7.1 gm/dL (6.4-8.9) 04/08/25 18:54 Albumin 4.1 gm/dL (3.5-5.7) 04/08/25 18:54 Globulin 3.0 gm/dL 04/08/25 18:54 Albumin/Globulin Ratio 1.4 04/08/25 18:54 Lipase 110.0 U/L (11.0-82.0) H 04/08/25 18:54 Urine Color Light-yellow (Yellow) 04/08/25 19:50 Urine Appearance Clear (Clear) 04/08/25 19:50 Urine pH 6.5 (5.0-9.0) 04/08/25 19:50 Ur Specific [place] 1.006 (1.001-1.030) 04/08/25 19:50 Urine Protein 50 mg/dL (Negative) H 04/08/25 19:50 Urine Glucose (UA) Normal mg/dL (Normal) 04/08/25 19:50 Urine Ketones Negative (Negative) 04/08/25 19:50 Urine Occult Blood Negative (Negative) 04/08/25 19:50 Urine Nitrite Negative (Negative) 04/08/25 19:50 Urine Bilirubin Negative (Negative) 04/08/25 19:50 Urine Urobilinogen Normal mg/dL (Normal) 04/08/25 19:50 Ur Leukocyte Esterase Negative (Negative) 04/08/25 19:50 Urine RBC 1-2 /HPF (0-4) 04/08/25 19:50 Urine WBC 1-2 /HPF (0-4) 04/08/25 19:50 Ur Squamous Epith Cells N/A 04/08/25 19:50 Urine Bacteria None seen /HPF (None Seen) 04/08/25 19:50 Hyaline Casts None /LPF (0-8) 04/08/25 19:50 Blood Type AB Positive 04/08/25 18:54 Antibody Screen Negative 04/08/25 18:54 Assessment & Plan Assessment/Plan (1) Hypertensive nephropathy: (2) Hypertensive emergency: (3) Fluid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 unintentional weight loss, reduced energy intake, loss of subcutaneous fat with locations identified (more content not included)...[facility]07-03-2025 NoteThis report has been cancelled.[facility]07-02-2025 Note-TOMASA on CKD during admission, likely ATN -Cr upward trend, if improved tomorrow then discharge -Daily BMP -Defer fluids to Nephrology - Spoke with nephrology today and agree with doing urinalysis to consider alternative etiologies for the patient's renal dysfunctionC[facility] Clinic [facility]07-02-2025 NotePhysical Therapy Physical Therapy Treatment Patient Name: Marleni Dennis : 1950 Today's Date: 03/19/2025 Problem List[1] 03/19/25 Time Calculation Start Time 1416 Stop Time 1436 Time Calculation (min) 20 min PT Therapeutic Procedures Time Entry Therapeutic Activity Time Entry 03/19/25 1416 PT Last Visit PT Received On 03/19/25 Response to Previous Treatment Patient with no complaints from previous session. General Family/Caregiver Present No Subjective Pt in bed awake and alert, agreeable to participate. RN danilo session. Activity Tolerance Endurance Stage II Activity Tolerance Comments Pt reports dizziness long-term through ambulation limiting distances and activity tolerance. BP before activity in semifowlers 156/60, after amb in chair 173/97, and again in chair after a few mins 147/50. Precautions Medical Precautions fall risk;chair alarm Pain Assessment Pain Assessment No/denies pain Cognition Overall Cognitive Status WFL Arousal/Alertness Appropriate responses to stimuli Orientation Level Oriented X4 Following Commands Follows all commands and directions without difficulty Safety Judgment Good awareness of safety precautions Awareness of Errors Good awareness of errors made Deficits Fully aware of deficits Attention Span Appears intact Memory Appears intact Problem Solving Able to problem solve independently Communication Intact Cognition Comments Pleasant and cooperative throughout Static Sitting Balance Static Sitting-Balance Support Feet supported Static Sitting-Level of Assistance Independent Static Sitting-Comment/Number of Minutes no seated balance concerns Dynamic Sitting Balance Dynamic Sitting-Balance Support Feet supported Dynamic Sitting-Balance Lateral lean;Forward lean Dynamic Sitting Balance-Level of Assistance Distant supervision Dynamic Sitting-Comments no LOB Static Standing Balance Static Standing-Balance Support Right upper extremity supported;Left upper extremity supported;With device (RW) Static Standing-Level of Assistance Close supervision Static Standing-Comment/Number of Minutes RW for support Ambulation Ambulation Yes Ambulation 1 Surface 1 Level tile Device 1 Rolling walker Assistance 1 Close supervision Quality of Gait 1 slow pace, narrow HAYLEE with bilat LE ext rotation, decr step length/height Comments/Distance (ft) 1 ~110' x2 Bed Mobility Bed Mobility Yes Bed Mobility 1 Bed Mobility From 1 Supine Bed Mobility Type 1 To and from Bed Mobility to 1 Short sit Level of Assistance 1 Distant supervision Bed Mobility Comments 1 performs without difficulty, HOB elevated using rails Transfers Transfer Yes Transfer 1 Transfer From 1 Bed Transfer Type 1 To Transfer to 1 Stand Technique 1 Sit to stand Transfer Device 1 rolling walker Transfer Level of Assistance 1 Close supervision Trials/Comments 1 no LOB Transfers 2 Transfer From 2 Stand Transfer Type 2 To Transfer to 2 Chair with arms Technique 2 Stand to sit Transfer Device 2 rolling walker Transfer Level of Assistance 2 Close supervision Trials/Comments 2 no LOB, good safety awareness noted Other Activity Other Activity 1 Pt in chair with call light and lunch tray provided at end of session. PT Assessment PT Assessment/CRIMINAL RESEARCHER Summary Pt continues to improve, however, limited by dizziness long-term throughout ambulation distance this date. Pt also requested to each lunch as soon as it arrived during session. Will cont to progress as tolerated. Evaluation/Treatment Tolerance Patient tolerated treatment well;Other (Comment) (dizziness) Medical Staff Made Aware Yes PT Education/Comments safety Plan Level of assist 1 assist Treatment/Interventions Functional transfer training;Endurance training;Patient/family training;Bed mobility;Gait training PT Plan Skilled PT PT Frequency 5 times per week Outcome Assessments 6 Clicks (Mobility) Help from another person turning from your back to your side while in a flat bed without using bedrails: None Help from another person moving from lying on your back to sitting on the side of a flat bed without using bedrails: None Help from another person moving to and from a bed to a chair (including a wheelchair): A little Help from another person standing up from a chair using your arms (e.g. wheelchair or bedside chair): A little Help from another person to walk in hospital room: A little Help from another person climbing 3-5 steps with a railing: A little Mobility 6 Clicks T-Score: 20 Goals: Multi-Disciplinary Problems (from Physical Therapy) Active Problems Problem: PT Misc Start Date: 03/13/25 Goal Start Date Expected End Date End Date Patient will perform bed mobility from flat bed independently without use of bed rails. 03/13/25 04/12/25 -- Goal Start Date Expected End Date End Date Patient will perform sit to (more content not included)...[facility]07-02-2025 NoteNephrology Progress Note Patient : Marleni Dennis; 74 y.o. Location: [facility]8/4108-01 Attending: Erickson Cabrera MD Admit Date: 03/13/2025 Hospital Day: 6 Reason for Consult: CKD IV with uncontrolled hypertension. Subjective: History of present illness: Marleni Dennis is a 74 y.o. female who was transferred from [facility] after presenting with weakness after a fall as well as uncontrolled hypertension. She has pertinent past medical history of hypertension secondary to renal artery stenosis, CKD IV, CAD s/p CABG and PCI with stent placement, obstructive sleep apnea. She presented to [facility] after a fall after showering as she was trying to sit down. At the time, she was noted to have elevated blood pressure with systolic of 250 mmHg. She was also noted to have elevated troponin. After receiving 2 doses of hydralazine, her blood pressures were persistently elevated. She has been on nicardipine infusion 2-75 mL/hr. She does not regularly follow up with a set up machinist. She says she has a water pill that she takes as needed, but does not recall the last time she took a dose. She also mentions that she did not take her blood pressure medications yesterday. Her BUN is 38 and creatinine is 2.41. Remaining electrolytes are within normal limits. Interval history: 03/19/25 Patient was seen and examined at bedside this morning. Blood pressures have been better controlled yesterday. Kidney function remains poor with a moderate rise of creatinine to 3.88 and BUN 81 this morning. Her appetite has been moderate and she has been eating as tolerated. She has been ambulating with assistance and occasionally feels dizziness while walking. Objective: Input/Output: No intake or output data in the 24 hours ending 03/19/25 0836 No intake/output data recorded. Vital signs: Temperature: Temp: 36.8 ???C (98.3 ???F) TMax: Temp (24hrs), Av.2 ???C (97.1 ???F), Min:35.7 ???C (96.2 ???F), Max:36.8 ???C (98.3 ???F) Respirations: Resp: 15 Pulse: Heart Rate: 76 BP: BP: 171/68 BP Range: Systolic (24hrs), Av , Min:156 , Max:176 Diastolic (24hrs), Av, Min:50, Max:68 Wt Readings from Last 3 Encounters: 03/19/25 67.5 kg (148 lb 13 oz) 04/24/24 78.9 kg (174 lb) 10/11/23 81.2 kg (179 lb) Physical Exam Constitutional: General: She is not in acute distress. Appearance: She is not diaphoretic. HENT: Head: Normocephalic and atraumatic. Cardiovascular: Heart sounds: Normal heart sounds. Pulmonary: Effort: Pulmonary effort is normal. No respiratory distress. Breath sounds: Normal breath sounds. Abdominal: Tenderness: There is no abdominal tenderness. Musculoskeletal: General: No swelling. Cervical back: Neck supple. Neurological: Mental Status: She is alert. Current Medications: Scheduled Meds: apixaban, 2.5 mg, oral, BID aspirin, 81 mg, oral, q AM carvedilol, 25 mg, oral, BID with meals cloNIDine, 0.1 mg, oral, TID doxazosin, 2 mg, oral, Daily escitalopram, 5 mg, oral, Daily ezetimibe, 10 mg, oral, Daily fenofibrate, 160 mg, oral, Daily hydrALAZINE, 100 mg, oral, TID melatonin, 6 mg, oral, Nightly nicotine, 1 patch, transdermal, Daily NIFEdipine XL, 90 mg, oral, BID Oxygen Therapy, , inhalation, Continuous pantoprazole, 40 mg, oral, Daily polyethylene glycol, 17 g, oral, Daily sennosides, 1 tablet, oral, Nightly Continuous Infusions: PRN Meds: PRN medications: acetaminophen, calcium carbonate, diclofenac, ondansetron ODT OR ondansetron, zolpidem Outpatient Medications: Medication Documentation Review Audit Reviewed by Gena Ellis RN (Registered Nurse) on 03/13/25 at 0140 Medication Order Taking? Sig Documenting Provider Last Dose Status apixaban (Eliquis) 2.5 mg tablet [id number] TAKE 1 TABLET BY MOUTH TWICE A DAY FOR 90 DAYS Historical ProviderMD Active aspirin 81 mg EC tablet [id number] Take 1 tablet every day by oral route. Historical ProviderMD Flag for Review buPROPion (Wellbutrin) 75 mg tablet [id number] Yes Take 75 mg by mouth twice a day. Historical Provider, Active carvedilol (Coreg) 12.5 mg tablet [id number] No Take 25 mg by mouth with breakfast and with evening meal. Patient not taking: Reported on 03/13/2025 Historical ProviderMD Not Taking Active DULoxetine (Cymbalta) [address] capsule [id number] Take 30 mg by mouth every other day. Weaning off of duloxetine (takes 60 mg daily AND 30 mg every other day_) Historical Provider, Active DULoxetine (Cymbalta) [address] capsule [id number] Take 1 tablet by mouth in the morning. Weaning off of duloxetine (takes 60 mg daily AND 30 mg every other day_) Historical Provider, Active ezetimibe (Zetia) 10 mg tablet [id number] Take 1 tablet by mouth in the morning. Historical Provider, Active fenofibrate (Tricor) 145 mg tablet [id number] Take 1 tablet by mouth in the morning. Historical Provider, Active furosemide (Lasix) 40 mg tablet [id number] No if needed. (more content not included)...[facility]07-02-2025 Note-RD following, see belowUnC[facility] Note-MCS SSIUnC[facility]07-02-2025 Note-PT/OT following -Plan for HHC dispoUnC[facility]07-02-2025 Note-NRT -Advised on cessationUnC[facility]07-02-2025 Note-Continue LexaproUnC[facility] Clinic [facility]07-02-2025 Note-Continue Zetia, fenofibrate, aspirinUnC[facility]07-02-2025 Note-likely 2/2 medication non-adherence -US renal negative for stenosis -aldosterone, renin wnl -Required intermittent cardene -BP management per Nephrology, appreciate recsUniversity [facility]-02-[facility] Note-would benefit repeating duplex scan of the abdomen as an outpatientUnC[facility] Clinic [facility]07-02-2025 Note-Prior episodes of DVT, on Eliquis. Physical exam showed evidence of LLE swelling. -b/l LE doppler negative for DVTUnCleveland Clinic [facility]07-02-2025 Note-Continue Zetia, aspirin -ultrasound showing <50% stenosis R ICA, 50-69% stenosis L ICA -Will need outpatient surveillanceCleveland Clinic [facility]ucl[facility]07-02-2025 NoteHospital Medicine Daily Progress Note - 03/19/2025 8:02 AM; Room: [id number] Admission: 03/13/2025 1:02 AM; Length of stay: 6 days THE HOSPITALIST TEAM PREFERS TO USE [employer] FOR NON-URGENT COMMUNICATION 7AM-7PM. IF I DO NOT RESPOND WITHIN 20 MINUTES OR URGENT MATTERS, PLEASE CALL THROUGH THE CONTENT PUBLISHER. FROM 7PM-7AM, PLEASE PAGE [phone](COVR). Code Status: Full Code Barriers to Discharge: renal dysfunction Expected Discharge Date: 1 to 2 days Discharge Destination: home Overview Patient is seen for evaluation and management of hypertensive emergency. Subjective patient seen and examined. Unfortunately the patient continues to have increasing creatinine and BUN despite now adequate blood pressure control. Physical Exam Visit Vitals BP 159/58 Pulse 71 Temp 35.7 ???C (96.2 ???F) Resp 18 No intake or output data in the 24 hours ending 03/19/25 0802 Estimated body mass index is 27.22 kg/m??? as calculated from the following: Height as of this encounter: 1.575 m (5' 2 ). Weight as of this encounter: 67.5 kg (148 lb 13 oz). Constitutional: NAD, AOx3 Eyes: EOMI, normal conjunctiva Mouth: Moist, no lesions CV: RRR, normal S1-S2, systolic murmur Resp: CTA, no crackles or wheezing Abd: Soft, non-tender Extremities: no edema, 2+ distal pulses Skin : Warm, dry Neuro: AOx3, no focal deficits Psych: Appropriate mood and affect Unchanged Assessment and Plan Assessment & Plan Hypertensive emergency NSTEMI (non-ST elevated myocardial infarction) ([facility]/HCC) Acute kidney injury superimposed on chronic kidney disease -likely 2/2 medication non-adherence -US renal negative for stenosis -aldosterone, renin wnl -Required intermittent cardene -BP management per Nephrology, appreciate recs Stage 4 chronic kidney disease ([facility]) -TOMASA on CKD during admission, likely ATN -Cr upward trend, if improved tomorrow then discharge -Daily BMP -Defer fluids to Nephrology - Spoke with nephrology today and agree with doing urinalysis to consider alternative etiologies for the patient's renal dysfunction Coronary artery disease without angina pectoris -Continue Zetia, fenofibrate, aspirin Occlusion of carotid artery -Continue Zetia, aspirin -ultrasound showing <50% stenosis R ICA, 50-69% stenosis L ICA -Will need outpatient surveillance History of DVT (deep vein thrombosis) -Prior episodes of DVT, on Eliquis. Physical exam showed evidence of LLE swelling. -b/l LE doppler negative for DVT Abdominal bruit -would benefit repeating duplex scan of the abdomen as an outpatient Depression -Continue Lexapro Type 2 diabetes mellitus with other diabetic kidney complication (CMS/HCC) -[facility] SSI Tobacco dependence -NRT -Advised on cessation Other abnormalities of gait and mobility -PT/OT following -Plan for [facility] dispo Severe protein-calorie malnutrition (CMS/HCC) -RD following, see below Nutrition Screen: Clinical Indicators of Malnutrition: poor appetite, unintentional weight loss, reduced energy intake, loss of subcutaneous fat with locations identified, loss of muscle mass with location identified Malnutrition Assessment (Completed by RD) Severe PCM: Acute Illness/Injury: >7.5% involuntary weight loss in 3 months, >5% involuntary weight loss in 1 month, decreased energy intake < 50% for 5 days, severity of reduced muscle mass (moderate depletion, severity of body fat loss (moderate depletion) Treatment & Intervention Plan: monitor intakes and adjust recommendations as needed, RD to change supplement, check weight Nutrition Goals: intake > 75% meals, intake > 75% supplements, maitain visceral protein, compliance w/MNT Malnutrition Attestation: I attest to the following: I have personally seen this patient. The patient has been assessed for malnutrition as documentation above, and based on the criteria set by the Academy of [employer] and Dietetics and the [place] [employer]al and Parenteral [employer], meets the diagnosis for malnutrition. A care plan has been established for this patient. VTE Prophylaxis: Eliquis Scheduled Meds apixaban, 2.5 mg, oral, BID aspirin, 81 mg, oral, q AM carvedilol, 25 mg, oral, BID with meals cloNIDine, 0.1 mg, oral, TID doxazosin, 2 mg, oral, Daily escitalopram, 5 mg, oral, Daily ezetimibe, 10 mg, oral, Daily fenofibrate, 160 mg, oral, Daily hydrALAZINE, 100 mg, oral, TID melatonin, 6 mg, oral, Nightly nicotine, 1 patch, transdermal, Daily NIFEdipine XL, 90 mg, oral, BID Oxygen Therapy, , inhalation, Continuous pantoprazole, 40 mg, oral, Daily polyethylene glycol, 17 g, oral, Daily sennosides, 1 tablet, oral, Nightly Pertinent Investigations Hematology: Results from last 7 days Lab Units 03/19/25 0343 03/18/25 0330 WBC AUTO 10*3/uL 5.43 5.49 HEMOGLOBIN g/dL 9.5* 9.6* HEMATOCRIT % 28.8* 29.5* MCV fL 88.1 89.9 PLATELETS AUTO 10*3/uL 194 203 Chemistry: Results from last 7 (more content not included)...[facility]07-01-2025 NotePhysical Therapy Physical Therapy Treatment Patient Name: Marleni Dennis : 1950 Today's Date: 03/18/2025 Problem List[1] Start Time: 1548 Stop Time: 1557 Time Calculation (min): 9 min Objective pt agreeable to participate with therapy @ this time. Upon arrival pt in supine with HOB elevated. General Visit Information: PT Last Visit PT Received On: 03/18/25 General Subjective: pt agreeable to amb Session Comments: Upon arrival pt in bed Precautions Precautions Medical Precautions: fall risk, chair alarm Pain Pain Assessment Pain Assessment: (pt does not rate her R arm & side of R head pain) Cognition Cognition Overall Cognitive Status: Within Functional Limits Arousal/Alertness: Appropriate responses to stimuli Orientation Level: Oriented X4 Following Commands: Follows all commands and directions without difficulty General Assessment Static Sitting Balance Static Sitting Balance Static Sitting-Balance Support: Feet supported, No upper extremity supported Static Sitting-Level of Assistance: Independent Static Sitting-Comment/Number of Minutes: EOB Dynamic Sitting Balance Dynamic Sitting Balance Dynamic Sitting-Balance Support: No upper extremity supported, Feet supported Dynamic Sitting-Balance: Reaching for objects, Reaching across midline Dynamic Sitting Balance-Level of Assistance: Distant supervision Dynamic Sitting-Comments: EOB Static Standing Balance Static Standing Balance Static Standing-Balance Support: Right upper extremity supported, Left upper extremity supported, With device (RW) Static Standing-Level of Assistance: Close supervision Static Standing-Comment/Number of Minutes: no LOB or LE buckling Dynamic Standing Balance Dynamic Standing Balance Dynamic Standing-Balance Support: With device, Unilateral upper extremity supported (RW) Dynamic Standing Balance-Level of Assistance: Close supervision Dynamic Standing-Comments: no LOB, forward flexed posture General Assessments: Activity Tolerance Activity Tolerance Comments: amb with RW, fatigues easily Cognition Overall Cognitive Status: Within Functional Limits Arousal/Alertness: Appropriate responses to stimuli Orientation Level: Oriented X4 Following Commands: Follows all commands and directions without difficulty Treatment: Ambulation Ambulation: Yes Ambulation 1 Surface 1: Level tile Device 1: Rolling walker Assistance 1: Close supervision Quality of Gait 1: slow paced, fatigue noted, decreased step length, decreased step height Comments/Distance (ft) 1: 115FT Bed Mobility Bed Mobility: Yes Bed Mobility 1 Bed Mobility From 1: Supine Bed Mobility Type 1: To and from Bed Mobility to 1: Short sit Level of Assistance 1: Distant supervision Bed Mobility Comments 1: HOB elevated Transfers Transfer: Yes Transfer 1 Transfer From 1: Bed Transfer Type 1: To and from Transfer to 1: Bed Technique 1: Sit to stand, Stand to sit Transfer Device 1: rolling walker Transfer Level of Assistance 1: Close supervision (can be distant supervision) Trials/Comments 1: no LOB or struggle note Treatment Comments: pt returned to bed after therapy, call light within pt reach Outcome Assessments 6 Clicks (Mobility) Help from another person turning from your back to your side while in a flat bed without using bedrails: None Help from another person moving from lying on your back to sitting on the side of a flat bed without using bedrails: None Help from another person moving to and from a bed to a chair (including a wheelchair): A little Help from another person standing up from a chair using your arms (e.g. wheelchair or bedside chair): A little Help from another person to walk in hospital room: A little Help from another person climbing 3-5 steps with a railing: A little Mobility 6 Clicks T-Score: 20 Assessment/Plan PT Assessment PT Assessment/CRIMINAL RESEARCHER Summary: pt amb 115ft RW with SBAof 1. No LOB or LE buckling noted however pt fatigue noted. pt could benefit from cont therapy to improve her functional mobility. Evaluation/Treatment Tolerance: Patient limited by fatigue Medical Staff Made Aware: Yes PT Education/Comments: pt educated on PT POC Plan Level of assist: 1 assist Treatment/Interventions: Functional transfer training, LE strengthening/ROM, Endurance training, Balance training, Gait training, Bed mobility PT Plan: Skilled PT PT Frequency: 5 times per week PT Discharge Recommendations: Patient is NOT able to return to prior living environment, additional therapy needed PT - Discharge Recommendations Placed: Yes Goals: Multi-Disciplinary Problems (from Physical Therapy) Active Problems Problem: PT Misc Start Date: 03/13/25 Goal Start Date Expected End Date End Date Patient will perform bed mobility from flat bed independently without use of bed rails. 03/13/25 04/12/25 -- Goal Star (more content not included)...[facility] 03-18-2025 NoteReceived [facility]. Updated pt. Anticipate Dc tomorrow per hospitalist note.[facility] 03-18-2025 NoteNephrology Progress Note Patient : Marleni Dennis; 74 y.o. Location: [address] [place], [place] [address]- Attending: Erickson Cabrera MD Admit Date: 03/13/2025 Hospital Day: 5 Reason for Consult: CKD IV with uncontrolled hypertension. Subjective: History of present illness: Marleni Dennis is a 74 y.o. female who was transferred from [facility] after presenting with weakness after a fall as well as uncontrolled hypertension. She has pertinent past medical history of hypertension secondary to renal artery stenosis, CKD IV, CAD s/p CABG and PCI with stent placement, obstructive sleep apnea. She presented to [place] [facility] after a fall after showering as she was trying to sit down. At the time, she was noted to have elevated blood pressure with systolic of 250 mmHg. She was also noted to have elevated troponin. After receiving 2 doses of hydralazine, her blood pressures were persistently elevated. She has been on nicardipine infusion 2-75 mL/hr. She does not regularly follow up with a set up machinist. She says she has a water pill that she takes as needed, but does not recall the last time she took a dose. She also mentions that she did not take her blood pressure medications yesterday. Her BUN is 38 and creatinine is 2.41. Remaining electrolytes are within normal limits. Interval history: 03/18/25 Patient was seen and examined at bedside this morning. She denies any new concerns. Her blood pressures have been under better control yesterday compared to prior days. Kidney function remains stable with creatinine 3.69 and BUN 68 today. Objective: Input/Output: No intake or output data in the 24 hours ending 03/18/25 1231 No intake/output data recorded. Vital signs: Temperature: Temp: 36.3 ???C (97.4 ???F) TMax: Temp (24hrs), Av.3 ???C (97.4 ???F), Min:36.3 ???C (97.4 ???F), Max:36.3 ???C (97.4 ???F) Respirations: Resp: 18 Pulse: Heart Rate: 79 BP: BP: 176/63 BP Range: Systolic (24hrs), Av , Min:136 , Max:176 Diastolic (24hrs), Av, Min:49, Max:63 Wt Readings from Last 3 Encounters: 03/18/25 68.4 kg (150 lb 11.2 oz) 04/24/24 78.9 kg (174 lb) 10/11/23 81.2 kg (179 lb) Physical Exam Constitutional: General: She is not in acute distress. Appearance: Normal appearance. She is not ill-appearing or diaphoretic. HENT: Head: Normocephalic and atraumatic. Cardiovascular: Heart sounds: Normal heart sounds. Pulmonary: Effort: No respiratory distress. Breath sounds: Normal breath sounds. Abdominal: General: There is no distension. Tenderness: There is no abdominal tenderness. Musculoskeletal: General: No swelling. Cervical back: Neck supple. Skin: General: Skin is warm. Coloration: Skin is not jaundiced. Findings: No erythema. Neurological: Mental Status: She is alert. Current Medications: Scheduled Meds: apixaban, 2.5 mg, oral, BID aspirin, 81 mg, oral, q AM carvedilol, 25 mg, oral, BID with meals cloNIDine, 0.1 mg, oral, TID doxazosin, 2 mg, oral, Daily escitalopram, 5 mg, oral, Daily ezetimibe, 10 mg, oral, Daily fenofibrate, 160 mg, oral, Daily hydrALAZINE, 100 mg, oral, TID insulin lispro, 0-10 Units, subcutaneous, TID with meals And insulin lispro, 0-8 Units, subcutaneous, Nightly melatonin, 6 mg, oral, Nightly nicotine, 1 patch, transdermal, Daily NIFEdipine XL, 90 mg, oral, BID Oxygen Therapy, , inhalation, Continuous pantoprazole, 40 mg, oral, Daily polyethylene glycol, 17 g, oral, Daily sennosides, 1 tablet, oral, Nightly Continuous Infusions: PRN Meds: PRN medications: acetaminophen, calcium carbonate, diclofenac, ondansetron ODT OR ondansetron, zolpidem Outpatient Medications: Medication Documentation Review Audit Reviewed by Gena Ellis RN (Registered Nurse) on 03/13/25 at 0140 Medication Order Taking? Sig Documenting Provider Last Dose Status apixaban (Eliquis) 2.5 mg tablet [id number] TAKE 1 TABLET BY MOUTH TWICE A DAY FOR 90 DAYS Historical MD Soham Active aspirin 81 mg EC tablet [id number] Take 1 tablet every day by oral route. Historical ProviderMD Flag for Review buPROPion (Wellbutrin) 75 mg tablet [id number] Yes Take 75 mg by mouth twice a day. Historical ProviderMD Active carvedilol (Coreg) 12.5 mg tablet [id number] No Take 25 mg by mouth with breakfast and with evening meal. Patient not taking: Reported on 03/13/2025 Kimberly Rousseau MD Not Taking Active DULoxetine (Cymbalta) [address] capsule [id number] Take 30 mg by mouth every other day. Weaning off of duloxetine (takes 60 mg daily AND 30 mg every other day_) Historical MD Soham Active DULoxetine (Cymbalta) [address] capsule [id number] Take 1 tablet by mouth in the morning. Weaning off of duloxetine (takes 60 mg daily AND 30 mg every other day_) Historical MD Soham Active ezetimibe (Zetia) 10 mg tablet [id number] Take 1 tablet by mouth in the morning. Historical MD Soham Active fenofibrate (Tricor) 145 mg tablet [id number] (more content not included)... [facility]07-01-2025 NotePhysician Clarification Please review the following and provide your response below. Please specify the type of NSTEMI: --NSTEMI --NM Type 2, please document underlying cause --NSTEMI Ruled out --Demand ischemia (no NSTEMI) --Elevated troponins without NSTEMI --Other specified --Clinically unable to determine Additional Notes: Demand ischemia (no NSTEMI) This documentation will become part of the patient's medical record.[facility]07-01-2025 Note-TOMASA on CKD during admission, likely ATN -Cr upward trend, if improved tomorrow then discharge -Daily BMP -Defer fluids to NephrologyUnC[facility]07-01-2025 Note- Continue LexaproUnC[facility]07-01-2025 Note-PT/OT following -Plan for HHC dispoUnC[facility]07-01-2025 Note-would benefit repeating duplex scan of the abdomen as an outpatientUnC[facility]07-01-2025 Note-NRT -Advised on cessationUnC[facility]07-01-2025 Note-RD following, see belowUnC[facility]07-01-2025 Note-MCS SSI [facility]07-01-2025 Note-likely 2/2 medication non-adherence -US renal negative for stenosis -aldosterone, renin wnl -Required intermittent cardene -BP management per Nephrology, appreciate recsUniversTriHealth [facility]07-01-2025 Note-Prior episodes of DVT, on Eliquis. Physical exam showed evidence of LLE swelling. -b/l LE doppler negative for DVTUnC[facility] Clinic [facility]07-01-2025 Note-Continue Zetia, aspirin -ultrasound showing <50% stenosis R ICA, 50-69% stenosis L ICA -Will need outpatient surveillanceUnC[facility]07-01-2025 Note-Continue Zetia, fenofibrate, aspirinUnC[facility] 03-18-2025 NoteHospital Medicine Daily Progress Note - 03/18/2025 7:20 AM; Room: [address] [place] [address] Admission: 03/13/2025 1:02 AM; Length of stay: 5 days THE HOSPITALIST TEAM PREFERS TO USE [employer] FOR NON-URGENT COMMUNICATION 7AM-7PM. IF I DO NOT RESPOND WITHIN 20 MINUTES OR URGENT MATTERS, PLEASE CALL THROUGH THE CONTENT PUBLISHER. FROM 7PM-7AM, PLEASE PAGE [phone](COVR). Code Status: Full Code Barriers to Discharge: renal dysfunction Expected Discharge Date: 1 to 2 days Discharge Destination: home Overview Patient is seen for evaluation and management of hypertensive emergency. Subjective patient seen and examined. Patient has no acute complaints. BP more controlled. Cr plateau today Physical Exam Visit Vitals BP 140/53 Pulse 65 Temp 36.6 ???C (97.9 ???F) Resp 25 No intake or output data in the 24 hours ending 03/18/25 0720 Estimated body mass index is 27.56 kg/m??? as calculated from the following: Height as of this encounter: 1.575 m (5' 2 ). Weight as of this encounter: 68.4 kg (150 lb 11.2 oz). Constitutional: NAD, AOx3 Eyes: EOMI, normal conjunctiva Mouth: Moist, no lesions CV: RRR, normal S1-S2, systolic murmur Resp: CTA, no crackles or wheezing Abd: Soft, non-tender Extremities: no edema, 2+ distal pulses Skin : Warm, dry Neuro: AOx3, no focal deficits Psych: Appropriate mood and affect Unchanged Assessment and Plan Assessment & Plan Hypertensive emergency NSTEMI (non-ST elevated myocardial infarction) ([facility]) Acute kidney injury superimposed on chronic kidney disease -likely 2/2 medication non-adherence - renal negative for stenosis -aldosterone, renin wnl -Required intermittent cardene -BP management per Nephrology, appreciate recs Stage 4 chronic kidney disease ([facility]) -TOMASA on CKD during admission, likely ATN -Cr upward trend, if improved tomorrow then discharge -Daily BMP -Defer fluids to Nephrology Coronary artery disease without angina pectoris -Continue Zetia, fenofibrate, aspirin Occlusion of carotid artery -Continue Zetia, aspirin -ultrasound showing <50% stenosis R ICA, 50-69% stenosis L ICA -Will need outpatient surveillance History of DVT (deep vein thrombosis) -Prior episodes of DVT, on Eliquis. Physical exam showed evidence of LLE swelling. -b/l LE doppler negative for DVT Abdominal bruit -would benefit repeating duplex scan of the abdomen as an outpatient Depression -Continue Lexapro Type 2 diabetes mellitus with other diabetic kidney complication ([facility]) -[facility] [facility] Tobacco dependence -NRT -Advised on cessation Other abnormalities of gait and mobility -PT/OT following -Plan for [facility] dispo Severe protein-calorie malnutrition (CMS/HCC) -RD following, see below Nutrition Screen: Clinical Indicators of Malnutrition: poor appetite, unintentional weight loss, reduced energy intake, loss of subcutaneous fat with locations identified, loss of muscle mass with location identified Malnutrition Assessment (Completed by RD) Severe PCM: Acute Illness/Injury: >7.5% involuntary weight loss in 3 months, >5% involuntary weight loss in 1 month, decreased energy intake < 50% for 5 days, severity of reduced muscle mass (moderate depletion, severity of body fat loss (moderate depletion) Treatment & Intervention Plan: monitor intakes and adjust recommendations as needed, RD to change supplement, check weight Nutrition Goals: intake > 75% meals, intake > 75% supplements, maitain visceral protein, compliance w/MNT Malnutrition Attestation: I attest to the following: I have personally seen this patient. The patient has been assessed for malnutrition as documentation above, and based on the criteria set by the Academy of Nutrition and Dietetics and the [place] [employer] of Enteral and Parenteral Nutrition, meets the diagnosis for malnutrition. A care plan has been established for this patient. VTE Prophylaxis: Eliquis Scheduled Meds apixaban, 2.5 mg, oral, BID aspirin, 81 mg, oral, q AM carvedilol, 25 mg, oral, BID with meals cloNIDine, 0.1 mg, oral, TID doxazosin, 2 mg, oral, Daily escitalopram, 5 mg, oral, Daily ezetimibe, 10 mg, oral, Daily fenofibrate, 160 mg, oral, Daily hydrALAZINE, 100 mg, oral, TID insulin lispro, 0-10 Units, subcutaneous, TID with meals And insulin lispro, 0-8 Units, subcutaneous, Nightly melatonin, 6 mg, oral, Nightly nicotine, 1 patch, transdermal, Daily NIFEdipine XL, 90 mg, oral, BID pantoprazole, 40 mg, oral, Daily polyethylene glycol, 17 g, oral, Daily sennosides, 1 tablet, oral, Nightly Pertinent Investigations Hematology: Results from last 7 days Lab Units 03/18/25 0330 03/17/25 0340 WBC AUTO 10*3/uL 5.49 6.29 HEMOGLOBIN g/dL 9.6* 9.8* HEMATOCRIT % 29.5* 29.7* MCV fL 89.9 88.7 PLATELETS AUTO 10*3/uL 203 199 Chemistry: Results from last 7 days Lab Units 03/18/25 0330 03/17/25 0340 03/16/25 0500 03/14/25 0338 03/13/25 1748 03/13/25 073 (more content not included)...[facility]07-01-2025 NoteProblem: Safety - Adult Goal: Free from fall injury Outcome: Progressing The patient is Moderately Stable - Low risk of patient condition declining or worsening The patient's goals for the shift include comfort The clinical goals for the shift include VSS, safetyUnC[facility]06-30-2025 NotePhysical Therapy Name: Marleni Dennis Date of : 1950 Today's Date: 03/17/25 Oh no you can't work with me today. Session okay per RN, requests pt's BP be recorded prior to mobility. Pt supine in bed upon arrival, refuses PT this afternoon d/t being too tired. Is, however, agreeable to this television script writer obtaining BP: 139/50 mmHg. RN aware. Check No Charge Time attempted: 1425 Giancarlo Calderón, PT, DPTUnCleveland Clinic [facility]or [facility]06-30-2025 Note-TOMASA on CKD during admission, likely ATN -Cr upward trend -Daily BMP -Defer fluids to NephrologyUnC[facility] Clinic [facility]06-30-2025 Note- likely 2/2 medication non-adherence -US renal negative for stenosis -aldosterone, renin wnl -Required intermittent cardene -BP management per Nephrology, appreciate recsUniversity [facility]-30-[facility] Note-likely 2/2 medication non-adherence -US renal negative for stenosis -aldosterone, renin wnl -Required intermittent cardene -BP management per Nephrology, appreciate recsUniversTriHealth [facility]06-30-2025 NoteOccupational Therapy Occupational Therapy Treatment Patient Name: Marleni Dennis : 1950 Today's Date: 03/17/2025 03/17/25 0955 Time Calculation Start Time 0955 Stop Time 1029 Time Calculation (min) 34 min Problem List Problem List[1] Treatment: 03/17/25 09 OT Last Visit OT Received On 03/17/25 General Subjective Pt pleasant and agreeable to short therapy session, I didn't sleep well last night at all. Family/Caregiver Present No Precautions Medical Precautions fall risk;chair alarm Pain Assessment Pain Assessment No/denies pain Cognition Overall Cognitive Status WFL Orientation Level Oriented X4 Grooming Grooming Level of Assistance Setup Grooming Where Assessed Sitting in chair Grooming Comments hair grooming Toileting Toileting Level of Assistance Close supervision Where Assessed Toilet Toileting Comments SBA for transfer, hygiene for safety, no LOB note Functional Standing Tolerance Time 4-5 min Activity stand at sink, toileting, mobiltiy, transfers Functional Standing Tolerance Comments no LOB, multiple trials standing with RW and no LOB Static Sitting Balance Static Sitting-Balance Support No upper extremity supported;Feet supported Static Sitting-Level of Assistance Distant supervision Static Sitting-Comment/Number of Minutes EOB, in bedside chair Dynamic Sitting Balance Dynamic Sitting-Balance Support No upper extremity supported;Feet supported Dynamic Sitting-Balance Forward lean;Reaching for objects;Reaching across midline;Trunk control activities Dynamic Sitting Balance-Level of Assistance Close supervision Dynamic Sitting-Comments SBA for toileting, transfers Static Standing Balance Static Standing-Balance Support Right upper extremity supported;Left upper extremity supported;With device (RW) Static Standing-Level of Assistance Close supervision Static Standing-Comment/Number of Minutes no LOB noted, slow, controlled movements Dynamic Standing Balance Dynamic Standing-Balance Support Unilateral upper extremity supported;No upper extremity supported;With device (RW) Dynamic Standing-Balance Forward lean;Reaching for objects;Reaching across midline Dynamic Standing Balance-Level of Assistance Close supervision Dynamic Standing-Comments handwashing sinkside, transfers Bed Mobility Bed Mobility Yes Bed Mobility 1 Bed Mobility From 1 Supine Bed Mobility Type 1 To Bed Mobility to 1 Short sit Level of Assistance 1 Close supervision Bed Mobility Comments 1 use of slightly elevated HOB and L bedrail Transfers Ambulation comments household distances Transfer Yes Transfer 1 Transfer From 1 Sit;Bed Transfer Type 1 To Transfer to 1 Stand;Toilet Technique 1 Sit to stand;Stand to sit Transfer Device 1 rolling walker Transfer Level of Assistance 1 Close supervision Trials/Comments 1 SBA for safety, no LOB Transfers 2 Transfer From 2 Sit;Toilet Transfer Type 2 To Transfer to 2 Stand;Chair with arms Technique 2 Sit to stand;Stand to sit Transfer Device 2 rolling walker Transfer Level of Assistance 2 Close supervision Trials/Comments 2 SBA for safety, no LOB Activity Tolerance Endurance Stage III Activity Tolerance Comments Pt reports fatigue this date secondary to lack of sleep last night, tolerates dynamic sessio nwith no adverse effects Other Activity Other Activity 1 Pt left in bedside chair with call light and needs accessible. OT Assessment OT Impairments Decreased ADL status;Decreased safe judgment during ADL;Decreased endurance;Decreased functional mobility;Decreased IADLs;Decreased trunk control for functional activities OT Assessment/[facility] [employer] Summary Pt would benefit from continued skilled therapy to promote increased activity tolerance, strength, safety and ease for home d/c. OT Education/Comments activity promotion, OT POC, safety awareness, energy conservation with good carryover Plan Level of assist 1 assist Treatment Interventions ADL retraining;Functional transfer training;Endurance training;Patient/family training;Neuromuscular reeducation;Compensatory technique education OT Plan Skilled OT OT Frequency 5 times per week OT Discharge Recommendations Patient is able to return to prior living environment;Home OT OT - Discharge Recommendations Placed Yes Outcome Assessments 03/17/25 1100 AM-PAC 6 Clicks Putting on and taking off regular lower body clothing? 3 Bathing(Including washing,rinsing,drying)? 3 Toileting, which includes using the toilet,bedpan,or urinal? 3 Putting on and taking off regular upper body clothing? 4 Taking care of personal grooming such as brushing teeth? 4 Eating meals? [address] [facility] 21 OT Goals: Multi-Disciplinary Problems (from Occupational Therapy) Active Problems Problem: Balance Start Date: 03/14/25 Goal Start Date Expected End Date End Date LTG - Patient will maintain stand balance to (more content not included)... [facility]06-30-2025 Note-Continue LexaproUnC[facility] Clinic [facility]06-30-2025 Note-Continue Zetia, aspirin -ultrasound showing <50% stenosis R ICA, 50-69% stenosis L ICA -Will need outpatient surveillanceUnC[facility] Clinic [facility]06-30-2025 Note-NRT -Advised on cessationUnCleveland Clinic [facility]06-30-2025 Note-MCS SSI [facility]06-30-2025 Note-RD following, see below [facility]06-30-2025 Note-PT/OT following -Plan for C dispoUnC[facility] Clinic [facility]06-30-2025 Note-would benefit repeating duplex scan of the abdomen as an outpatientUnC[facility] Clinic [facility]06-30-2025 Note-Prior episodes of DVT, on Eliquis. Physical exam showed evidence of LLE swelling. -b/l LE doppler negative for DVTUnCleveland Clinic [facility]06-30-2025 Note-Continue Zetia, fenofibrate, aspirinUnCleveland Clinic [facility] 03-17-2025 NoteHospital Medicine Daily Progress Note - 03/17/2025 8:33 AM; Room: [address] [place] [address] Admission: 03/13/2025 1:02 AM; Length of stay: 4 days THE HOSPITALIST TEAM PREFERS TO USE [employer] FOR NON-URGENT COMMUNICATION 7AM-7PM. IF I DO NOT RESPOND WITHIN 20 MINUTES OR URGENT MATTERS, PLEASE CALL THROUGH THE CONTENT PUBLISHER. FROM 7PM-7AM, PLEASE PAGE [phone](COVR). Code Status: Full Code Barriers to Discharge: renal dysfunction, BP lability Expected Discharge Date: 1 to 2 days Discharge Destination: home Overview Patient is seen for evaluation and management of hypertensive emergency. Subjective patient seen and examined. BP yesterday still not controlled. Renal function worsening. Patient received poor sleep. Physical Exam Visit Vitals BP 146/54 Pulse 70 Temp 36.6 ???C (97.9 ???F) Resp 19 No intake or output data in the 24 hours ending 03/17/25 0833 Estimated body mass index is 26.58 kg/m??? as calculated from the following: Height as of this encounter: 1.575 m (5' 2 ). Weight as of this encounter: 65.9 kg (145 lb 4.8 oz). Constitutional: NAD, AOx3 Eyes: EOMI, normal conjunctiva Mouth: Moist, no lesions CV: RRR, normal S1-S2, systolic murmur Resp: CTA, no crackles or wheezing Abd: Soft, non-tender Extremities: no edema, 2+ distal pulses Skin : Warm, dry Neuro: AOx3, no focal deficits Psych: Appropriate mood and affect Assessment and Plan Assessment & Plan Hypertensive emergency NSTEMI (non-ST elevated myocardial infarction) (CMS/HCC) Acute kidney injury superimposed on chronic kidney disease -likely 2/2 medication non-adherence - renal negative for stenosis -aldosterone, renin wnl -Required intermittent cardene -BP management per Nephrology, appreciate recs Stage 4 chronic kidney disease (CMS/HCC) -TOMASA on CKD during admission, likely ATN -Cr upward trend -Daily BMP -Defer fluids to Nephrology Coronary artery disease without angina pectoris -Continue Zetia, fenofibrate, aspirin Occlusion of carotid artery -Continue Zetia, aspirin -ultrasound showing <50% stenosis R ICA, 50-69% stenosis L ICA -Will need outpatient surveillance History of DVT (deep vein thrombosis) -Prior episodes of DVT, on Eliquis. Physical exam showed evidence of LLE swelling. -b/l LE doppler negative for DVT Abdominal bruit -would benefit repeating duplex scan of the abdomen as an outpatient Depression -Continue Lexapro Type 2 diabetes mellitus with other diabetic kidney complication ([facility]/HCC) -[facility] Tobacco dependence -NRT -Advised on cessation Other abnormalities of gait and mobility -PT/OT following -Plan for [facility] dispo Severe protein-calorie malnutrition (CMS/HCC) -RD following, see below Nutrition Screen: Clinical Indicators of Malnutrition: poor appetite, unintentional weight loss, reduced energy intake, loss of subcutaneous fat with locations identified, loss of muscle mass with location identified Malnutrition Assessment (Completed by RD) Severe PCM: Acute Illness/Injury: >7.5% involuntary weight loss in 3 months, >5% involuntary weight loss in 1 month, decreased energy intake < 50% for 5 days, severity of reduced muscle mass (moderate depletion, severity of body fat loss (moderate depletion) Treatment & Intervention Plan: monitor intakes and adjust recommendations as needed, RD to change supplement, check weight Nutrition Goals: intake > 75% meals, intake > 75% supplements, maitain visceral protein, compliance w/MNT Malnutrition Attestation: I attest to the following: I have personally seen this patient. The patient has been assessed for malnutrition as documentation above, and based on the criteria set by the Academy of Nutrition and Dietetics and the [place] [employer] of Enteral and Parenteral Nutrition, meets the diagnosis for malnutrition. A care plan has been established for this patient. VTE Prophylaxis: Eliquis Scheduled Meds apixaban, 2.5 mg, oral, BID aspirin, 81 mg, oral, q AM carvedilol, 25 mg, oral, BID with meals cloNIDine, 0.1 mg, oral, TID doxazosin, 2 mg, oral, Daily escitalopram, 5 mg, oral, Daily ezetimibe, 10 mg, oral, Daily fenofibrate, 160 mg, oral, Daily hydrALAZINE, 100 mg, oral, TID insulin lispro, 0-10 Units, subcutaneous, TID with meals And insulin lispro, 0-8 Units, subcutaneous, Nightly melatonin, 6 mg, oral, Nightly nicotine, 1 patch, transdermal, Daily NIFEdipine XL, 90 mg, oral, BID pantoprazole, 40 mg, oral, Daily polyethylene glycol, 17 g, oral, Daily sennosides, 1 tablet, oral, Nightly Pertinent Investigations Hematology: Results from last 7 days Lab Units 03/17/25 0340 03/16/25 0500 WBC AUTO 10*3/uL 6.29 5.28 HEMOGLOBIN g/dL 9.8* 10.4* HEMATOCRIT % 29.7* 31.6* MCV fL 88.7 89.5 PLATELETS AUTO 10*3/uL 199 226 Chemistry: Results from last 7 days Lab Units 03/17/25 0340 03/16/25 0500 03/15/25 0435 03/14/25 0338 03/13/25 1748 03/13/25 0738 SODIUM mmol (more content not included)...[facility] 03-17-2025 NoteNephrology Progress Note Patient : Marleni Dennis; 74 y.o. Location: [facility]8/4108-01 Attending: Erickson Cabrera MD Admit Date: 03/13/2025 Hospital Day: 4 Reason for Consult: CKD IV with uncontrolled hypertension. Subjective: History of present illness: Marleni Dennis is a 74 y.o. female who was transferred from [facility] after presenting with weakness after a fall as well as uncontrolled hypertension. She has pertinent past medical history of hypertension secondary to renal artery stenosis, CKD IV, CAD s/p CABG and PCI with stent placement, obstructive sleep apnea. She presented to [place] [facility] after a fall after showering as she was trying to sit down. At the time, she was noted to have elevated blood pressure with systolic of 250 mmHg. She was also noted to have elevated troponin. After receiving 2 doses of hydralazine, her blood pressures were persistently elevated. She has been on nicardipine infusion 2-75 mL/hr. She does not regularly follow up with a set up machinist. She says she has a water pill that she takes as needed, but does not recall the last time she took a dose. She also mentions that she did not take her blood pressure medications yesterday. Her BUN is 38 and creatinine is 2.41. Remaining electrolytes are within normal limits. Interval history: 03/17/25 Patient was seen and examined while she was resting in her chair this morning. She has been feeling better overall. She has continued to have fluctuations in her blood pressure. Yesterday evening, she was hypertensive with blood pressures as high as 201/73. Denies shortness of breath and continues to ambulate with assistance at times. Her creatinine has also increased to 3.61 today with a BUN of 61. Objective: Input/Output: No intake or output data in the 24 hours ending 03/17/25 1153 No intake/output data recorded. Vital signs: Temperature: Temp: 36.6 ???C (97.9 ???F) TMax: Temp (24hrs), Av.6 ???C (97.9 ???F), Min:36.6 ???C (97.9 ???F), Max:36.6 ???C (97.9 ???F) Respirations: Resp: 19 Pulse: Heart Rate: 70 BP: BP: 146/54 BP Range: Systolic (24hrs), Av , Min:137 , Max:201 Diastolic (24hrs), Av, Min:52, Max:93 Wt Readings from Last 3 Encounters: 03/17/25 65.9 kg (145 lb 4.8 oz) 04/24/24 78.9 kg (174 lb) 10/11/23 81.2 kg (179 lb) Physical Exam Constitutional: General: She is not in acute distress. Appearance: Normal appearance. She is not diaphoretic. HENT: Head: Normocephalic and atraumatic. Cardiovascular: Heart sounds: Normal heart sounds. Pulmonary: Effort: Pulmonary effort is normal. No respiratory distress. Breath sounds: Normal breath sounds. Abdominal: General: There is no distension. Tenderness: There is no abdominal tenderness. Musculoskeletal: General: No swelling. Cervical back: Neck supple. Skin: General: Skin is warm. Coloration: Skin is not jaundiced. Neurological: Mental Status: She is alert. Current Medications: Scheduled Meds: apixaban, 2.5 mg, oral, BID aspirin, 81 mg, oral, q AM carvedilol, 25 mg, oral, BID with meals cloNIDine, 0.1 mg, oral, TID doxazosin, 2 mg, oral, Daily escitalopram, 5 mg, oral, Daily ezetimibe, 10 mg, oral, Daily fenofibrate, 160 mg, oral, Daily hydrALAZINE, 100 mg, oral, TID insulin lispro, 0-10 Units, subcutaneous, TID with meals And insulin lispro, 0-8 Units, subcutaneous, Nightly melatonin, 6 mg, oral, Nightly nicotine, 1 patch, transdermal, Daily NIFEdipine XL, 90 mg, oral, BID pantoprazole, 40 mg, oral, Daily polyethylene glycol, 17 g, oral, Daily sennosides, 1 tablet, oral, Nightly Continuous Infusions: PRN Meds: PRN medications: acetaminophen, calcium carbonate, diclofenac, ondansetron ODT OR ondansetron, zolpidem Outpatient Medications: Medication Documentation Review Audit Reviewed by Gena Ellis RN (Registered Nurse) on 03/13/25 at 0140 Medication Order Taking? Sig Documenting Provider Last Dose Status apixaban (Eliquis) 2.5 mg tablet [id number] TAKE 1 TABLET BY MOUTH TWICE A DAY FOR 90 DAYS Historical MD Soham Active aspirin 81 mg EC tablet [id number] Take 1 tablet every day by oral route. Historical MD Soham Flag for Review buPROPion (Wellbutrin) 75 mg tablet [id number] Yes Take 75 mg by mouth twice a day. Kimberly Rousseau MD Active carvedilol (Coreg) 12.5 mg tablet [id number] No Take 25 mg by mouth with breakfast and with evening meal. Patient not taking: Reported on 03/13/2025 Kimberly Rousseau MD Not Taking Active DULoxetine (Cymbalta) [address] capsule [id number] Take 30 mg by mouth every other day. Weaning off of duloxetine (takes 60 mg daily AND 30 mg every other day_) Kimberly Rousseau MD Active DULoxetine (Cymbalta) [address] capsule [id number] Take 1 tablet by mouth in the morning. Weaning off of duloxetine (takes 60 mg daily AND 30 mg every other day_) Historical Provider, Active ezetimibe (Zetia) 10 mg tablet [id number] Take (more content not included)... [facility]06-29-2025 Note Attestation signed by Sharee Mckeon MD at 03/16/2025 1:40 PM I personally saw and examined the patient on the same date of service as resident/fellow Bucky Alejandra MD. I discussed the findings and therapeutic plan with the Bucky Alejandra MD. I agree with the documentation, except for any edits/updates below. Patient seen and examined at bedside. Noted to have blood pressure running on the higher side. Nifedipine is increased to 60 mg twice daily. Would recommend to start Cardura if blood pressure continue to stay on the higher side. Hold valsartan in the setting of worsening kidney function which is likely in the setting of episodes of hypotension and hypotension. Continue to monitor kidney function and electrolytes. Avoid nephrotoxic medications. Sharee Mckeon MD Faculty, Division of Nephrology, Department of Medicine, [facility]. Nephrology Progress Note Patient : Marleni Dennis; 74 y.o. Location: 4108/4108-01 Attending: Erickson Cabrera MD Admit Date: 03/13/2025 Hospital Day: 3 Reason for Consult: CKD IV with uncontrolled hypertension. Subjective: History of present illness: Marleni Dennis is a 74 y.o. female who was transferred from [facility] after presenting with weakness after a fall as well as uncontrolled hypertension. She has pertinent past medical history of hypertension secondary to renal artery stenosis, CKD IV, CAD s/p CABG and PCI with stent placement, obstructive sleep apnea. She presented to [place] ER after a fall after showering as she was trying to sit down. At the time, she was noted to have elevated blood pressure with systolic of 250 mmHg. She was also noted to have elevated troponin. After receiving 2 doses of hydralazine, her blood pressures were persistently elevated. She has been on nicardipine infusion 2-75 mL/hr. She does not regularly follow up with a set up machinist. She says she has a water pill that she takes as needed, but does not recall the last time she took a dose. She also mentions that she did not take her blood pressure medications yesterday. Her BUN is 38 and creatinine is 2.41. Remaining electrolytes are within normal limits. Interval history: 03/16/25 Patient was seen and examined at bedside. She is currently off of nicardipine infusion. Denies acute complaints. Objective: Input/Output: No intake or output data in the 24 hours ending 03/16/25 1327 I/O last 3 completed shifts: In: 2230 (34.7 mL/kg) [I.V.:2230 (34.7 mL/kg)] Out: 100 (1.6 mL/kg) [Urine:100 (0 mL/kg/hr)] Weight: 64.2 kg Vital signs: Temperature: Temp: 36.1 ???C (97 ???F) TMax: Temp (24hrs), Av.3 ???C (97.3 ???F), Min:36.1 ???C (97 ???F), Max:36.4 ???C (97.5 ???F) Respirations: Resp: 22 Pulse: Heart Rate: 74 BP: BP: (!) 181/67 BP Range: Systolic (24hrs), Av , Min:128 , Max:186 Diastolic (24hrs), Av, Min:50, Max:78 Wt Readings from Last 3 Encounters: 03/15/25 64.2 kg (141 lb 9.6 oz) 04/24/24 78.9 kg (174 lb) 10/11/23 81.2 kg (179 lb) Physical Exam Constitutional: General: She is not in acute distress. Appearance: She is not diaphoretic. HENT: Head: Normocephalic and atraumatic. Cardiovascular: Heart sounds: Normal heart sounds. Pulmonary: Effort: No respiratory distress. Breath sounds: Normal breath sounds. Abdominal: General: Bowel sounds are normal. Palpations: Abdomen is soft. Tenderness: There is no abdominal tenderness. Musculoskeletal: General: No swelling. Cervical back: Neck supple. Skin: General: Skin is warm. Coloration: Skin is not jaundiced. Findings: No erythema. Neurological: Mental Status: She is alert. Current Medications: Scheduled Meds: apixaban, 2.5 mg, oral, BID aspirin, 81 mg, oral, q AM carvedilol, 25 mg, oral, BID with meals doxazosin, 2 mg, oral, Daily escitalopram, 5 mg, oral, Daily ezetimibe, 10 mg, oral, Daily fenofibrate, 160 mg, oral, Daily hydrALAZINE, 100 mg, oral, TID insulin lispro, 0-10 Units, subcutaneous, TID with meals And insulin lispro, 0-8 Units, subcutaneous, Nightly melatonin, 6 mg, oral, Nightly nicotine, 1 patch, transdermal, Daily NIFEdipine XL, 90 mg, oral, BID pantoprazole, 40 mg, oral, Daily Continuous Infusions: PRN Meds: PRN medications: acetaminophen, calcium carbonate, diclofenac, ondansetron ODT OR ondansetron, zolpidem Outpatient Medications: Medication Documentation Review Audit Reviewed by Gena Ellis RN (Registered Nurse) on 03/13/25 at 0140 Medication Order Taking? Sig Documenting Provider Last Dose Status apixaban (Eliquis) 2.5 mg tablet [id number] TAKE 1 TABLET BY MOUTH TWICE A DAY FOR 90 DAYS Historical Provider, Active aspirin 81 mg EC tablet [id number] Take 1 tablet (more content not included)... [facility]06-29-2025 Note-likely 2/2 medication non-adherence -US renal negative for stenosis -pending aldosterone, renin -Required intermittent cardene -Continue Coreg 25, hydralazine 100 TID, nifedipine 60 BID -Due to consulting services changes orders without communication to primary, will defer all BP management to Nephrology to avoid inevitable complications from multiple prescribers.[facility]06-29-2025 Note-TOMASA on CKD during admission, likely ATN -Cr mild increased today -Daily BMP -Defer fluids to NephrologyUnC[facility]06-29-20[facility] Note- MCS SSIUnC[facility]06-29-2025 Note-Continue Zetia, aspirin -ultrasound showing <50% stenosis R ICA, 50-69% stenosis L ICA -Will need outpatient surveillanceUnC[facility]06-29-20[facility] Note-RD following, see belowUnC[facility]06-29-2025 Note- PT/OT following -Plan for HHC dispoUnC[facility]06-29-2025 Note-NRT -Advised on cessationUnC[facility]06-29-2025 Note-would benefit repeating duplex scan of the abdomen as an outpatientUnC[facility]06-29-2025 Note-Prior episodes of DVT, on Eliquis. Physical exam showed evidence of LLE swelling. -b/l LE doppler negative for DVTUnCleveland Clinic [facility]06-29-2025 Note-Continue LexaproUnCleveland Clinic [facility]06-29-2025 Note-Continue Zetia, fenofibrate, aspirinUnC[facility]06-29-2025 Note Hospital Medicine Daily Progress Note - 03/16/2025 7:20 AM; Room: [address] [place] [address] Admission: 03/13/2025 1:02 AM; Length of stay: 3 days THE HOSPITALIST TEAM PREFERS TO USE V[employer] CHAT FOR NON-URGENT COMMUNICATION 7AM-7PM. IF I DO NOT RESPOND WITHIN 20 MINUTES OR URGENT MATTERS, PLEASE CALL THROUGH THE CONTENT PUBLISHER. FROM 7PM-7AM, PLEASE PAGE [phone](COVR). Code Status: Full Code Barriers to Discharge: renal dysfunction, BP lability Expected Discharge Date: 1 to 2 days Discharge Destination: home Overview Patient is seen for evaluation and management of hypertensive emergency. Subjective patient seen and examined. On 03/14 BP up to systolic 210, placed on cardene with goal <160 and improvement. However yesterday morning had sBP 110 with symptoms at which time Cardene was at turned off. Nifedipine increased but today BP 180s. Physical Exam Visit Vitals BP 168/78 Pulse 74 Temp 36.4 ???C (97.5 ???F) Resp 24 Intake/Output Summary (Last 24 hours) at 03/16/2025 0720 Last data filed at 03/15/2025 1147 Gross per 24 hour Intake 126.67 ml Output 100 ml Net 26.67 ml Estimated body mass index is 25.9 kg/m??? as calculated from the following: Height as of this encounter: 1.575 m (5' 2 ). Weight as of this encounter: 64.2 kg (141 lb 9.6 oz). Constitutional: NAD, AOx3 Eyes: EOMI, normal conjunctiva Mouth: Moist, no lesions CV: RRR, normal S1-S2, systolic murmur Resp: CTA, no crackles or wheezing Abd: Soft, non-tender Extremities: mild edema L>R, 2+ distal pulses Skin : Warm, dry Neuro: AOx3, no focal deficits Psych: Appropriate mood and affect Assessment and Plan Assessment & Plan Hypertensive emergency NSTEMI (non-ST elevated myocardial infarction) ([facility]) Acute kidney injury superimposed on chronic kidney disease -likely 2/2 medication non-adherence - renal negative for stenosis -pending aldosterone, renin -Required intermittent cardene -Continue Coreg 25, hydralazine 100 TID, nifedipine 60 BID -Due to consulting services changes orders without communication to primary, will defer all BP management to Nephrology to avoid inevitable complications from multiple prescribers. Stage 4 chronic kidney disease ([facility]) -TOMASA on CKD during admission, likely ATN -Cr mild increased today -Daily BMP -Defer fluids to Nephrology Coronary artery disease without angina pectoris -Continue Zetia, fenofibrate, aspirin Occlusion of carotid artery -Continue Zetia, aspirin -ultrasound showing <50% stenosis R ICA, 50-69% stenosis L ICA -Will need outpatient surveillance History of DVT (deep vein thrombosis) -Prior episodes of DVT, on Eliquis. Physical exam showed evidence of LLE swelling. -b/l LE doppler negative for DVT Abdominal bruit -would benefit repeating duplex scan of the abdomen as an outpatient Depression -Continue Lexapro Type 2 diabetes mellitus with other diabetic kidney complication (CMS/HCC) -[facility] SSI Tobacco dependence -NRT -Advised on cessation Other abnormalities of gait and mobility -PT/OT following -Plan for [facility] dispo Severe protein-calorie malnutrition (CMS/HCC) -RD following, see below Nutrition Screen: Clinical Indicators of Malnutrition: poor appetite, unintentional weight loss, reduced energy intake, loss of subcutaneous fat with locations identified, loss of muscle mass with location identified Malnutrition Assessment (Completed by RD) Severe PCM: Acute Illness/Injury: >7.5% involuntary weight loss in 3 months, >5% involuntary weight loss in 1 month, decreased energy intake < 50% for 5 days, severity of reduced muscle mass (moderate depletion, severity of body fat loss (moderate depletion) Treatment & Intervention Plan: monitor intakes and adjust recommendations as needed, RD to change supplement, check weight Nutrition Goals: intake > 75% meals, intake > 75% supplements, maitain visceral protein, compliance w/MNT Malnutrition Attestation: I attest to the following: I have personally seen this patient. The patient has been assessed for malnutrition as documentation above, and based on the criteria set by the Academy of Nutrition and Dietetics and the [place] [employer] Enteral and Parenteral [employer], meets the diagnosis for malnutrition. A care plan has been established for this patient. VTE Prophylaxis: Eliquis Scheduled Meds apixaban, 2.5 mg, oral, BID aspirin, 81 mg, oral, q AM carvedilol, 25 mg, oral, BID with meals escitalopram, 5 mg, oral, Daily ezetimibe, 10 mg, oral, Daily fenofibrate, 160 mg, oral, Daily hydrALAZINE, 100 mg, oral, TID insulin lispro, 0-10 Units, subcutaneous, TID with meals And insulin lispro, 0-8 Units, subcutaneous, Nightly melatonin, 6 mg, oral, Nightly nicotine, 1 patch, transdermal, Daily NIFEdipine XL, 30 mg, oral, BID pantoprazole, 40 mg, oral, Daily Pertinent Investigations Hematology: Results from last 7 days Lab Units 03/16/25 0500 03/15/25 (more content not included)...[facility]06-28-2025 Note -likely 2/2 medication non-adherence -US renal negative for stenosis -pending aldosterone, renin -Required intermittent cardene -Continue Coreg 25, hydralazine 100 TID, nifedipine 30 BID -Avoid relative hypotension and rapid changes to medications prior to steady state in order to avoid such labile BPUnC[facility] Clinic [facility] 03-15-2025 Note-would benefit repeating duplex scan of the abdomen as an outpatientUnC[facility]06-28-2025 Note-PT/OT following -Plan for C dispoUnC[facility]06-28-2025 Note-Prior episodes of DVT, on Eliquis. Physical exam showed evidence of LLE swelling. -b/l LE doppler negative for DVTUnC[facility]06-28-2025 Note-TOMASA on CKD during admission, likely ATN -Cr plateau today, hold fluids and monitor daily BMP -If improved tomorrow and BP stable then dischargeUnC[facility]06-28-2025 Note-Continue Zetia, fenofibrate, aspirinUnC[facility]06-28-2025 Note-Continue Zetia, aspirin -ultrasound showing <50% stenosis R ICA, 50-69% stenosis L ICA -Will need outpatient surveillanceUnC[facility]06-28-2025 Note-NRT -Advised on cessationUnC[facility]06-28-2025 Note-Continue LexaproUnC[facility]06-28-2025 Note-MCS SSIUnC[facility]06-28-2025 Note-RD following, see belowUnC[facility]06-28-2025 Note Attestation signed by Sharee Mckeon MD at 03/15/2025 4:20 PM I personally saw and examined the patient on the same date of service as resident/fellow Bucky Alejandra MD. I discussed the findings and therapeutic plan with the Bucky Alejandra MD. I agree with the documentation, except for any edits/updates below. Patient seen and examined at bedside. She is on Cardizem drip due to blood pressure in the lower side. Noted to have blood pressure dropping to 110-120s. Would recommend against iv drip and rapid drop in blood pressure. Will increase nifedipine to 30 mg twice daily and can be increased to 60 mg twice daily if blood pressure continues to lower side. Taper off and stopping Cardene drip. Creatinine appears to be plateauing. Continue to monitor Continue to monitor kidney function and electrolytes. Avoid nephrotoxic medications. Sharee Mckeon MD Faculty, Division of Nephrology, Department of Medicine, [facility]. Nephrology Progress Note Patient : Marleni Dennis; 74 y.o. Location: 4108/4108-01 Attending: Erickson Cabrera MD Admit Date: 03/13/2025 Hospital Day: 2 Reason for Consult: CKD IV with uncontrolled hypertension. Subjective: History of present illness: Marleni Dennis is a 74 y.o. female who was transferred from [facility] after presenting with weakness after a fall as well as uncontrolled hypertension. She has pertinent past medical history of hypertension secondary to renal artery stenosis, CKD IV, CAD s/p CABG and PCI with stent placement, obstructive sleep apnea. She presented to [place] [facility] after a fall after showering as she was trying to sit down. At the time, she was noted to have elevated blood pressure with systolic of 250 mmHg. She was also noted to have elevated troponin. After receiving 2 doses of hydralazine, her blood pressures were persistently elevated. She has been on nicardipine infusion 2-75 mL/hr. She does not regularly follow up with a set up machinist. She says she has a water pill that she takes as needed, but does not recall the last time she took a dose. She also mentions that she did not take her blood pressure medications yesterday. Her BUN is 38 and creatinine is 2.41. Remaining electrolytes are within normal limits. Interval history: 03/15/25 Patient was seen and examined at bedside. She was re-initiated on nicardipine infusion. She is currently on hydralazine 100 mg TID, coreg 25 mg BID, nifedipine 30 mg daily Objective: Input/Output: Intake/Output Summary (Last 24 hours) at 03/15/2025 1246 Last data filed at 03/15/2025 1147 Gross per 24 hour Intake 2282.92 ml Output 100 ml Net 2182.92 ml I/O last 3 completed shifts: In: 2673.8 (41.6 mL/kg) [P.O.:540; I.V.:2133.8 (33.2 mL/kg)] Out: 800 (12.5 mL/kg) [Urine:800 (0.3 mL/kg/hr)] Weight: 64.2 kg Vital signs: Temperature: Temp: 36.2 ???C (97.2 ???F) TMax: Temp (24hrs), Av.1 ???C (97 ???F), Min:35.9 ???C (96.7 ???F), Max:36.2 ???C (97.2 ???F) Respirations: Resp: 18 Pulse: Heart Rate: 58 BP: BP: (!) 109/43 BP Range: Systolic (24hrs), Av , Min:109 , Max:211 Diastolic (24hrs), Av, Min:43, Max:86 Wt Readings from Last 3 Encounters: 03/15/25 64.2 kg (141 lb 9.6 oz) 04/24/24 78.9 kg (174 lb) 10/11/23 81.2 kg (179 lb) Physical Exam Constitutional: General: She is not in acute distress. Appearance: She is not diaphoretic. HENT: Head: Normocephalic and atraumatic. Cardiovascular: Heart sounds: Normal heart sounds. Pulmonary: Effort: No respiratory distress. Breath sounds: Normal breath sounds. Abdominal: General: Bowel sounds are normal. Palpations: Abdomen is soft. Tenderness: There is no abdominal tenderness. Musculoskeletal: General: No swelling. Cervical back: Neck supple. Skin: General: Skin is warm. Coloration: Skin is not jaundiced. Findings: No erythema. Neurological: Mental Status: She is alert. Current Medications: Scheduled Meds: apixaban, 2.5 mg, oral, BID aspirin, 81 mg, oral, q AM carvedilol, 25 mg, oral, BID with meals escitalopram, 5 mg, oral, Daily ezetimibe, 10 mg, oral, Daily fenofibrate, 160 mg, oral, Daily hydrALAZINE, 100 mg, oral, TID insulin lispro, 0-10 Units, subcutaneous, TID with meals And insulin lispro, 0-8 Units, subcutaneous, Nightly melatonin, 6 mg, oral, Nightly nicotine, 1 patch, transdermal, Daily [START ON 03/16/2025] NIFEdipine XL, 60 mg, oral, Daily pantoprazole, 40 mg, oral, Daily Continuous Infusions: PRN Meds: PRN medications: acetaminophen, calcium carbonate, diclofenac, ondansetron ODT OR ondansetron, zolpidem Outpatient Medications: Medication Documentation Review Audit Reviewed by Gena Ellis RN (Registered Nurse) (more content not included)... [facility]06[facility]28-2025 [facility] - 03/15/2025 7:32 AM; Room: [address] [place] [address] Admission: 03/13/2025 1:02 AM; Length of stay: 2 days THE HOSPITALIST TEAM PREFERS TO USE [employer] CHAT FOR NON-URGENT COMMUNICATION 7AM-7PM. IF I DO NOT RESPOND WITHIN 20 MINUTES OR URGENT MATTERS, PLEASE CALL THROUGH THE CONTENT PUBLISHER. FROM 7PM-7AM, PLEASE PAGE [phone](COVR). Code Status: Full Code Barriers to Discharge: renal dysfunction, BP lability Expected Discharge Date: 1 to 2 days Discharge Destination: home Overview Patient is seen for evaluation and management of hypertensive emergency. Subjective patient seen and examined. Patient continues to exhibit labile blood pressures and yesterday requiring Cardene drip to be restarted due to systolic sustained above 200. However this morning the patient had blood pressure down to 110 and stated that she felt lightheaded. Cardene has been off and later in the morning she stated that she was feeling better with improvement to her blood pressures to 140. No other acute complaints at this time Physical Exam Visit Vitals BP 141/55 Pulse 68 Temp 35.9 ???C (96.7 ???F) (Temporal) Resp 19 Intake/Output Summary (Last 24 hours) at 03/15/2025 0732 Last data filed at 03/15/2025 0643 Gross per 24 hour Intake 2133.75 ml Output -- Net 2133.75 ml Estimated body mass index is 25.9 kg/m??? as calculated from the following: Height as of this encounter: 1.575 m (5' 2 ). Weight as of this encounter: 64.2 kg (141 lb 9.6 oz). Constitutional: NAD, AOx3 Eyes: EOMI, normal conjunctiva Mouth: Moist, no lesions CV: RRR, normal S1-S2, systolic murmur Resp: CTA, no crackles or wheezing Abd: Soft, non-tender Extremities: mild edema L>R, 2+ distal pulses Skin : Warm, dry Neuro: AOx3, no focal deficits Psych: Appropriate mood and affect Assessment and Plan Assessment & Plan Hypertensive emergency NSTEMI (non-ST elevated myocardial infarction) ([facility]) Acute kidney injury superimposed on chronic kidney disease -likely 2/2 medication non-adherence - renal negative for stenosis -pending aldosterone, renin -Required intermittent cardene -Continue Coreg 25, hydralazine 100 TID, nifedipine 30 BID -Avoid relative hypotension and rapid changes to medications prior to steady state in order to avoid such labile BP Coronary artery disease without angina pectoris -Continue Zetia, fenofibrate, aspirin Occlusion of carotid artery -Continue Zetia, aspirin -ultrasound showing <50% stenosis R ICA, 50-69% stenosis L ICA -Will need outpatient surveillance Stage 4 chronic kidney disease ([facility]) -TOMASA on CKD during admission, likely ATN -Cr plateau today, hold fluids and monitor daily BMP -If improved tomorrow and BP stable then discharge History of DVT (deep vein thrombosis) -Prior episodes of DVT, on Eliquis. Physical exam showed evidence of LLE swelling. -b/l LE doppler negative for DVT Abdominal bruit -would benefit repeating duplex scan of the abdomen as an outpatient Depression -Continue Lexapro Type 2 diabetes mellitus with other diabetic kidney complication ([facility]) -[facility] SSI Tobacco dependence -NRT -Advised on cessation Other abnormalities of gait and mobility -PT/OT following -Plan for [facility] dispo Severe protein-calorie malnutrition (CMS/HCC) -RD following, see below Nutrition Screen: Clinical Indicators of Malnutrition: poor appetite, unintentional weight loss, reduced energy intake, loss of subcutaneous fat with locations identified, loss of muscle mass with location identified Malnutrition Assessment (Completed by RD) Severe PCM: Acute Illness/Injury: >7.5% involuntary weight loss in 3 months, >5% involuntary weight loss in 1 month, decreased energy intake < 50% for 5 days, severity of reduced muscle mass (moderate depletion, severity of body fat loss (moderate depletion) Treatment & Intervention Plan: monitor intakes and adjust recommendations as needed, RD to change supplement, check weight Nutrition Goals: intake > 75% meals, intake > 75% supplements, maitain visceral protein, compliance w/MNT Malnutrition Attestation: I attest to the following: I have personally seen this patient. The patient has been assessed for malnutrition as documentation above, and based on the criteria set by the Academy of Nutrition and Dietetics and the [place] [employer] of Enteral and Parenteral Nutrition, meets the diagnosis for malnutrition. A care plan has been established for this patient. VTE Prophylaxis: Eliquis Scheduled Meds apixaban, 2.5 mg, oral, BID aspirin, 81 mg, oral, q AM carvedilol, 25 mg, oral, BID with meals escitalopram, 5 mg, oral, Daily ezetimibe, 10 mg, oral, Daily fenofibrate, 160 mg, oral, Daily hydrALAZINE, 100 mg, oral, TID insulin lispro, 0-10 Units, subcutaneous, TID with meals And insulin lispro, 0-8 Units, subcutaneous, Nightly nicotine, 1 patch, transdermal, Daily NIFEdipine XL, 30 mg (more content not included)...[facility]06-27-2025 NoteNephrology Progress Note Patient : Marleni Dennis; 74 y.o. Location: 4108/4108-01 Attending: Erickson Cabrera MD Admit Date: 03/13/2025 Hospital Day: 1 Reason for Consult: CKD IV with uncontrolled hypertension. Subjective: History of present illness: Marleni Dennis is a 74 y.o. female who was transferred from [facility] after presenting with weakness after a fall as well as uncontrolled hypertension. She has pertinent past medical history of hypertension secondary to renal artery stenosis, CKD IV, CAD s/p CABG and PCI with stent placement, obstructive sleep apnea. She presented to [place] ER after a fall after showering as she was trying to sit down. At the time, she was noted to have elevated blood pressure with systolic of 250 mmHg. She was also noted to have elevated troponin. After receiving 2 doses of hydralazine, her blood pressures were persistently elevated. She has been on nicardipine infusion 2-75 mL/hr. She does not regularly follow up with a set up machinist. She says she has a water pill that she takes as needed, but does not recall the last time she took a dose. She also mentions that she did not take her blood pressure medications yesterday. Her BUN is 38 and creatinine is 2.41. Remaining electrolytes are within normal limits. Interval history: 03/14/25 Patient was seen and examined this morning as she was resting in her chair. She says she feels better compared to yesterday. She has been off of the nicardipine infusion and restarted home antihypertensive medications. She has been occasionally walking in the hallways with assistance. She has only been drinking approximately 1 cup of water per day and is currently on lactate ringers infusion. Objective: Input/Output: Intake/Output Summary (Last 24 hours) at 03/14/2025 1318 Last data filed at 03/14/2025 0629 Gross per 24 hour Intake 747.49 ml Output 800 ml Net -52.51 ml I/O last 3 completed shifts: In: 1236.7 (18.6 mL/kg) [P.O.:890; I.V.:346.7 (5.2 mL/kg)] Out: 950 (14.3 mL/kg) [Urine:950 (0.4 mL/kg/hr)] Weight: 66.4 kg Vital signs: Temperature: Temp: 36.2 ???C (97.1 ???F) TMax: Temp (24hrs), Av.4 ???C (97.5 ???F), Min:36.2 ???C (97.1 ???F), Max:36.6 ???C (97.8 ???F) Respirations: Resp: 19 Pulse: Heart Rate: 69 BP: BP: 174/79 BP Range: Systolic (24hrs), Av , Min:111 , Max:175 Diastolic (24hrs), Av, Min:39, Max:79 Wt Readings from Last 3 Encounters: 03/14/25 66.4 kg (146 lb 4.8 oz) 04/24/24 78.9 kg (174 lb) 10/11/23 81.2 kg (179 lb) Physical Exam Constitutional: General: She is not in acute distress. Appearance: She is not diaphoretic. HENT: Head: Normocephalic and atraumatic. Cardiovascular: Heart sounds: Normal heart sounds. Pulmonary: Effort: No respiratory distress. Breath sounds: Normal breath sounds. Abdominal: General: Bowel sounds are normal. Palpations: Abdomen is soft. Tenderness: There is no abdominal tenderness. Musculoskeletal: General: No swelling. Cervical back: Neck supple. Skin: General: Skin is warm. Coloration: Skin is not jaundiced. Findings: No erythema. Neurological: Mental Status: She is alert. Current Medications: Scheduled Meds: apixaban, 2.5 mg, oral, BID aspirin, 81 mg, oral, q AM carvedilol, 25 mg, oral, BID with meals escitalopram, 5 mg, oral, Daily ezetimibe, 10 mg, oral, Daily fenofibrate, 160 mg, oral, Daily hydrALAZINE, 100 mg, oral, TID insulin lispro, 0-10 Units, subcutaneous, TID with meals And insulin lispro, 0-8 Units, subcutaneous, Nightly nicotine, 1 patch, transdermal, Daily NIFEdipine XL, 30 mg, oral, Daily pantoprazole, 40 mg, oral, Daily Continuous Infusions: lactated Ringer's, 75 mL/hr, Last Rate: 75 mL/hr (03/14/25 0702) PRN Meds: PRN medications: acetaminophen, diclofenac, ondansetron ODT OR ondansetron Outpatient Medications: Medication Documentation Review Audit Reviewed by Gena Ellis RN (Registered Nurse) on 03/13/25 at 0140 Medication Order Taking? Sig Documenting Provider Last Dose Status apixaban (Eliquis) 2.5 mg tablet [id number] TAKE 1 TABLET BY MOUTH TWICE A DAY FOR 90 DAYS Historical Provider, Active aspirin 81 mg EC tablet [id number] Take 1 tablet every day by oral route. Historical Provider, Flag for Review buPROPion (Wellbutrin) 75 mg tablet [id number] Yes Take 75 mg by mouth twice a day. Historical Provider, Active carvedilol (Coreg) 12.5 mg tablet [id number] No Take 25 mg by mouth with breakfast and with evening meal. Patient not taking: Reported on 03/13/2025 Historical Provider, Not Taking Active DULoxetine (Cymbalta) [address] capsule [id number] Take 30 mg by mouth every other day. Weaning off of duloxetine (takes 60 mg daily AND 30 mg every other day_) Historical Provider, Active DULoxetine (Cymbalta) [address] capsule [id number] Take 1 tablet by mouth in the morning. Weaning off of duloxetine (takes 60 mg daily AND 30 m (more content not included)...[facility]06-27-2025 Note- Prior episodes of DVT, on Eliquis. Physical exam showed evidence of LLE swelling. - Will order LLE doppler for further evaluation.[facility]06-27-2025 NoteMay benefit repeating duplex scan of the abdomen as an outpatientUnC[facility]06-27-2025 NoteAs aboveUnC[facility]06-27-2025 Note- Nephrology consult blood pressure controlled aim for good glycemic control avoid nephrotoxic meds will discontinue NSAIDs which she is taking as well as ARB - Kidney function declining, likely secondary to hypertensive emergency on admission. Cr = 3.12, BUN 46, GFR 15. Continue monitoring levels and volume status. Continued LR infusion.[facility]06-27-[facility]25 Note - history of severe unintentional weight loss due to decreased PO intake. - Today, patient found to have improved PO intake. Continue monitoringUnC[facility] Clinic [facility]06-27-2025 Note- Nicotine replacement counseling, discussed with patient about having coronary disease peripheral arterial disease which can worsen with tobacco useUnC[facility] Clinic [facility]06-27-2025 Note- Blood sugar check dietUnCleveland Clinic [facility]06-27-2025 Note- With issues with hypertension discontinue Wellbutrin she scored 4 on depression scale we will add LexaproUn[facility]- Continue Zetia, aspirin - Ultrasound Carotid artery showed bilateral stenosis >50%[facility]- Cardiology recommend Zetia and fibrate on aspirin [facility]06-27-2025 Note- Suspect secondary hypertension most likely due to renal artery stenosis. Continues to be hypertensive today however, she is asymptomatic. - Renal ultrasound done showed left side stenosis with a diameter of < 9 cm. Right side unremarkable. - Pending aldosterone/renin levels. - Cardiology discontinued Nicardipine drip and recommend continuation of Coreg and Hydralazine.[facility]06-27-2025 NoteFall event PT OT to see patient fall precautionsUnC[facility]06-27-2025 NoteCase was discussed with the Medical Student on 03/14/2025. I examined the patient with the student. I agree with the history, physical, assessment, and plan of care. I discussed the findings and therapeutic plan. I agree with the documentation, except for any updates below. The patient appears to be subjectively doing well today. However her renal function continues to decline possibly indicative of ATN in the setting of her uncontrolled blood pressure. Will obtain lower extremity ultrasound of the left leg does appear more swollen than right; granted she does have history of significant cellulitis of the left leg with profound edema in that area. Erickson Cabrera MD Hospital Medicine Daily Progress Note - 03/14/2025 11:33 AM; Room: [address] [place] [address] Admission: 03/13/2025 1:02 AM; Length of stay: 1 days THE HOSPITALIST TEAM PREFERS TO USE [employer] CHAT FOR NON-URGENT COMMUNICATION 7AM-7PM. IF I DO NOT RESPOND WITHIN 20 MINUTES OR URGENT MATTERS, PLEASE CALL THROUGH THE CONTENT PUBLISHER. FROM 7PM-7AM, PLEASE PAGE [phone](COVR). Code Status: Full Code Barriers to Discharge: kidney function Expected Discharge Date: 1-2 days Discharge Destination: home Overview Patient is seen for evaluation and management of hypertensive Subjective Patient was seen at bedside today. She is doing well overall without any exacerbation of symptoms including chest pain, headache, nausea, vomiting, dizziness. She has been producing urine without any issues. No further concerns from her perspective. Physical Exam Visit Vitals BP 175/73 Pulse 73 Temp 36.2 ???C (97.1 ???F) Resp 12 Intake/Output Summary (Last 24 hours) at 03/14/2025 1133 Last data filed at 03/14/2025 0629 Gross per 24 hour Intake 747.49 ml Output 800 ml Net -52.51 ml Physical Exam Constitutional: Appearance: Normal appearance. HENT: Head: Normocephalic and atraumatic. Mouth/Throat: Mouth: Mucous membranes are moist. Eyes: Pupils: Pupils are equal, round, and reactive to light. Cardiovascular: Rate and Rhythm: Normal rate and regular rhythm. Pulses: Normal pulses. Heart sounds: Murmur heard. Pulmonary: Effort: Pulmonary effort is normal. Breath sounds: Normal breath sounds. Abdominal: General: Abdomen is flat. Musculoskeletal: General: Swelling present. Left lower leg: Edema present. Skin: General: Skin is warm. Neurological: General: No focal deficit present. Mental Status: She is alert and oriented to person, place, and time. Mental status is at baseline. Psychiatric: Mood and Affect: Mood normal. Behavior: Behavior normal. Thought Content: Thought content normal. Estimated body mass index is 26.76 kg/m??? as calculated from the following: Height as of this encounter: 1.575 m (5' 2 ). Weight as of this encounter: 66.4 kg (146 lb 4.8 oz). Assessment and Plan Assessment & Plan HTN (hypertension) with goal to be determined - Suspect secondary hypertension most likely due to renal artery stenosis. Continues to be hypertensive today however, she is asymptomatic. - Renal ultrasound done showed left side stenosis with a diameter of < 9 cm. Right side unremarkable. - Pending aldosterone/renin levels. - Cardiology discontinued Nicardipine drip and recommend continuation of Coreg and Hydralazine. Coronary artery disease without angina pectoris - Cardiology recommend Zetia and fibrate on aspirin Occlusion of carotid artery - Continue Zetia, aspirin - Ultrasound Carotid artery showed bilateral stenosis >50% Stage 4 chronic kidney disease ([facility]) - Nephrology consult blood pressure controlled aim for good glycemic control avoid nephrotoxic meds will discontinue NSAIDs which she is taking as well as ARB - Kidney function declining, likely secondary to hypertensive emergency on admission. Cr = 3.12, BUN 46, GFR 15. Continue monitoring levels and volume status. Continued LR infusion. History of DVT (deep vein thrombosis) - Prior episodes of DVT, on Eliquis. Physical exam showed evidence of LLE swelling. - Will order LLE doppler for further evaluation. NSTEMI (non-ST elevated myocardial infarction) ([facility]) As above Severe protein-calorie malnutrition ([facility]/HCC) - history of severe unintentional weight loss due to decreased PO intake. - Today, patient found to have improved PO intake. Continue monitoring Abdominal bruit May benefit repeating duplex scan of the abdomen as an outpatient Other abnormalities of gait and mobility Fall event PT OT to see patient fall precautions Depression - With issues with hypertension discontinue Wellbutrin she scored 4 on depression scale we will add Lexapro Type 2 diabetes mellitus with other diabetic kidney complication ([facility]) - Blood sugar check diet Tobacco dependence - Nicotine replacement counseling, discussed with patient about having coronary disease peripheral arterial disease which can worsen with tobacco use Nutrition Screen (more content not included)...[facility]06-27-2025 NoteOccupational Therapy Occupational Therapy Evaluation Patient Name: Marleni Dennis : 1950 Today's Date: 03/14/2025 Time In: 931 Time Out: 949 Marleni Dennis is an 74 y.o. female admitted from [facility] as a direct transfer where she presented with progressive weakness fall event and uncontrolled hypertension. Hypertensive emergency-missed medication Elevated troponin General Subjective: friendly and cooperative, reports she is not going to a snf but would like home therapy. son lives near and can provide assist as needed Problem List[1] Medical History[2] Surgical History[3] Precautions Precautions Medical Precautions: fall risk, chair alarm Pain Pain Assessment Pain Assessment: 0-10 Pain Score: 6 (right shoulder from recent fall) Cognition Cognition Overall Cognitive Status: Within Functional Limits General Assessment General Assessment Hearing: (wfl) Hand Dominance: Right Home Living Home Living Type of Home: House Lives With: Alone Home Adaptive Equipment: Walker rolling, Rollator, Emergency Alert (sc, gb, [facility] rts) Home Layout: Able to live on main level with bedroom/bathroom, Full bath main level Home Access: Stairs to enter with rails (3) Bathroom Shower/Tub: Walk-in shower Prior Level of Function Prior Function Level of Harlan: Independent with ADLs and functional transfers, Independent with homemaking with ambulation Prior Functional Mobility: Independent with rolling walker, Independent with rollator (drives) Prior IADLs IADL History Homemaking Responsibilities: Yes Meal Prep Responsibility: Primary Dynamic Sitting Balance Dynamic Sitting Balance Dynamic Sitting Balance-Level of Assistance: Independent Static Standing Balance Static Standing Balance Static Standing-Level of Assistance: Close supervision (rw) ADL ADL LE Dressing Assistance: Stand by Transfers Transfers Transfer: (in chair upon arrival, SBA with RW: sit to stand, 40 feet X2 and return to chair) Objective General Assessments Activity Tolerance Endurance: Stage II Vision - Basic Assessment Current Vision: No visual deficits Sensation Light Touch: No apparent deficits Coordination Movements are Fluid and Coordinated: Yes Extremity Assessments RUE Assessment RUE Assessment: (RUE shld to 90 flex/aarom wfo@ 11/20., represets as a RTC knjury,, distal wfl) LUE Assessment LUE Assessment: Within Functional Limits Outcome Assessments AM-PAC 6 Clicks Putting on and taking off regular lower body clothing?: A Little (Min Assist/Contact Guard/Supervision) Bathing(Including washing,rinsing,drying)?: A Little (Min Assist/Contact Guard/Supervision) Toileting, which includes using the toilet,bedpan,or urinal?: A Little (Min Assist/Contact Guard/Supervision) Putting on and taking off regular upper body clothing?: None (Independent) Taking care of personal grooming such as brushing teeth?: None (Independent) Eating meals?: None (Independent) Total Score OT [facility]: 21 Assessment/Plan OT Assessment OT Impairments: Decreased ADL status, Decreased endurance, Decreased functional mobility OT Assessment/ADÁN Summary: (needs skilled OT due to weakness and fatigue) Prognosis: Good Evaluation/Treatment Tolerance: Patient limited by fatigue Medical Staff Made Aware: Yes OT Education/Comments: (LB adl and adl transfer safety / technique /general home safety all with good return demo) Plan Level of assist: 1 assist Treatment Interventions: ADL retraining, Functional transfer training, Endurance training, Patient/family training, Neuromuscular reeducation, Compensatory technique education OT Plan: Skilled OT OT Frequency: 5 times per week OT Discharge Recommendations: Home OT, Patient is able to return to prior living environment OT - Discharge Recommendations Placed: Yes OT Goals Multi-Disciplinary Problems (from Occupational Therapy) Active Problems Problem: Balance Start Date: 03/14/25 Goal Start Date Expected End Date End Date LTG - Patient will maintain stand balance to allow for safe mobility 03/14/25 03/27/25 -- Problem: Bathing Start Date: 03/14/25 Goal Start Date Expected End Date End Date LTG - Patient will utilize adaptive techniques to bathe body with no assistance 03/14/25 03/27/25 -- Problem: Dressings Lower Extremities Start Date: 03/14/25 Goal Start Date Expected End Date End Date LTG - Patient will dress lower body with no assistance 03/14/25 03/27/25 -- Problem: Toileting Start Date: 03/14/25 Goal Start Date Expected End Date End Date LTG - Patient will utilize adaptive techniques/equipment to complete daily toileting tasks with no assistance 03/14/25 03/27/25 -- Problem: OT Misc Start Date: 03/14/25 Goal Start Date Expected End Date End Date Mod I adl transfers 50 feet and standing 10 minutes 03/14/25 03/27/25 -- [1] Patient Active Prob (more content not included)...[facility]06-[facility] NotePhysical Therapy Physical Therapy Treatment Patient Name: Marleni Dennis : 1950 Today's Date: 03/14/2025 Problem List[1] Start Time: 854 Stop Time: 924 Time Calculation (min): 30 min PT Therapeutic Procedures Time Entry Therapeutic Activity Time Entry: 20 Objective General Visit Information: PT Last Visit PT Received On: 03/14/25 General Subjective: The patient verbalized no pain complaints, and stated that generally she is feeling much better since beingadmitted, and she no longer is shaky as she was when first admitted. Vision - Basic Vision - Basic Assessment Current Vision: Wears glasses all the time Vision - Complex Precautions Precautions Medical Precautions: cardiac, IV, Purewick, telemetry, chair alarm Pain Pain Assessment Pain Assessment: No/denies pain Cognition Cognition Overall Cognitive Status: Within Functional Limits Arousal/Alertness: Appropriate responses to stimuli Orientation Level: Oriented X4 Following Commands: Follows all commands and directions without difficulty Deficits: Decreased awareness of deficits Attention Span: Appears intact Memory: Appears intact Communication: Intact General Assessment General Assessment Skin Integrity: warm and dry throughout all 4 extremities distally Edema: minimal throughout the BLEs distally Tone: (No tonal abnormalities.) Static Sitting Balance Static Sitting Balance Static Sitting-Balance Support: Feet supported, No upper extremity supported Static Sitting-Level of Assistance: Independent Dynamic Sitting Balance Dynamic Sitting Balance Dynamic Sitting-Balance Support: Feet supported, No upper extremity supported Dynamic Sitting-Balance: Lateral lean Dynamic Sitting Balance-Level of Assistance: Independent Static Standing Balance Static Standing Balance Static Standing-Balance Support: Right upper extremity supported, Left upper extremity supported, With device Static Standing-Level of Assistance: Contact guard Dynamic Standing Balance Dynamic Standing Balance Dynamic Standing-Balance Support: Right upper extremity supported, Left upper extremity supported, With device Dynamic Standing-Balance: Lateral lean, Forward lean Dynamic Standing Balance-Level of Assistance: Minimum assistance General Assessments: Activity Tolerance Endurance: Stage III Cognition Overall Cognitive Status: Within Functional Limits Arousal/Alertness: Appropriate responses to stimuli Orientation Level: Oriented X4 Following Commands: Follows all commands and directions without difficulty Deficits: Decreased awareness of deficits Attention Span: Appears intact Memory: Appears intact Communication: Intact Treatment: Therapeutic Exercise Therapeutic Exercise Activity 1: The patient performed BLAQs, seated hip flexion, APs, ankle circles x 10 reps each post transfer/ambulation bout. Therapeutic Activity Therapeutic Activity Time Entry: 20 Stairs Stairs: (No stairs attempted this AM.) Bed Mobility Bed Mobility: (The patient did demonstrate I with rolling supine to sit, and scoooting to the EOB prior to transfer/ambulation bout.) Transfers Ambulation comments: The patient ambulated 50 ft. x 1 with a wheeled walker with a min A x 1 required due to BLE weakness, and decreased gait, and dynamic balance. Outcome Assessments 6 Clicks (Mobility) Help from another person turning from your back to your side while in a flat bed without using bedrails: None Help from another person moving from lying on your back to sitting on the side of a flat bed without using bedrails: None Help from another person moving to and from a bed to a chair (including a wheelchair): A little Help from another person standing up from a chair using your arms (e.g. wheelchair or bedside chair): A little Help from another person to walk in hospital room: A lot Help from another person climbing 3-5 steps with a railing: A lot Mobility 6 Clicks T-Score: 18 Assessment/Plan PT Assessment PT Assessment/CRIMINAL RESEARCHER Summary: The patient requires skilled PT interventiondue to her balance , and BLE strength deficits especially since she has had a h/o falling in the past, and her medical problems. Prognosis: Good Evaluation/Treatment Tolerance: Patient tolerated treatment well Medical Staff Made Aware: Yes PT Education/Comments: Role of PT, correct use of walker for safety, and ther. ex. for the BLEs. Plan Level of assist: 1 assist Treatment/Interventions: Functional transfer training, LE strengthening/ROM, Endurance training, Bed mobility, Balance training, Patient/family training PT Plan: Skilled PT PT Frequency: 5 times per week PT Discharge Recommendations: Patient is NOT able to return to prior living environment, additional therapy needed PT - Discharge Recommendations Placed: Yes The patient was left upright in her bedside chair with chair alarm (more content not included)...[facility]06-26-2025 Note03/13/25 1707 Admission Assessment Questions Verify insurance with patient Yes Do you understand medical disease or what brought you into the hospital? Yes Who is your current PCP? Jack Vogt MD Can I schedule a follow up appointment for you at the time of discharge? No Do you understand why you are taking your current medications? Yes Are you taking your medications as prescribed? Yes Did patient provide teach back? No Pharmacy Bedside Delivery Status Not Interested Does the patient have a geriatric case manager assigned to them through their insurance? No Living Arrangement (Current/Prior to Hospitalization) Private residence (lives alone) Does the patient have history of HHC or SNF? No Assistive Device Walker;Other (Comment) (rollator walker) Patient's goal for discharge pending clinical course Was patient reminded that goal for discharge is 11am? No Does the patient have transportation at discharge? Yes (family will assist) Type of Residence Private residence Is PT/OT appropriate? Yes Is PT/OT ordered? Yes Is SW consult appropriate? No Is SW consult ordered? No Do you understand the benefits of MyChart? Yes Were you able to send link and activate MyChart? No (pending) 03/13 Transferred from OSH for hypertension and elevated troponin; cardiology consulted. Nephrology following for chronic kidney disease, renal US ordered. From home alone, uses RW. Therapy evals ordered for weakness and recent fall at home; PT=not able, OT=HHC.[facility]06-26-2025 Note Physical Therapy Physical Therapy Evaluation Patient Name: Marleni Dennis : 1950 Today's Date: 03/13/2025 Start Time: 1412 Stop Time: 1445 Time Calculation (min): 33 min PT Evaluation Time Entry PT Evaluation (Moderate) Time Entry: 25 General Subjective: Patient reports several recent falls. Demonstrated posterior loss of balance in standing during evaluation and reports this is what I do. Patient Summary: 72 y/o female s/p transfer from [facility] after presenting following fall and uncontrolled HTN. PMH: HTN, renal artery stenosis, DVT/PE, CKD4, CAD s/p CABG, PVD s/t B common iliac stenting, LEE, depression, occluded carotid artery Current Dx: NSTEMI PT Diagnosis: Decreased ambulatory balance, fall risk Problem List[1] Medical History[2] Surgical History[3] Precautions Precautions Medical Precautions: telemetry, fall risk, IV, oxygen Pain Pain Assessment Pain Score: 4 Pain Location: Shoulder Pain Orientation: Right Pain Descriptors: Aching Effect of Pain on Daily Activities: Patient reports pain w/ AROM R shoulder flexion Cognition Cognition Overall Cognitive Status: Within Functional Limits General Assessment Home Living Home Living Type of Home: House Lives With: Alone Home Adaptive Equipment: Walker rolling, Rollator Home Layout: Two level, Able to live on main level with bedroom/bathroom Home Access: Stairs to enter without rails Entrance Stairs-Number of Steps: 3 Prior Level of Function Prior Function Level of Harlan: Independent with ADLs and functional transfers Prior Functional Mobility: Independent with rolling walker, Independent with rollator Homemaking Assistance: Needs assistance Driving: Total (family assists) Prior Function Comments: Patient uses RW in the home, rollator outside the home. She reports poor motivation to engage in housekeeping or leisure tasks for several years now. Reports this started during Covid, but has recently worsened. She reports currently not eating much because she doesn't have the motivation to cook. She reports needing assist w/ housekeeping tasks d/t difficulty w/ vaccuuming and larger tasks d/t her LBP. General Assessments Activity Tolerance Activity Tolerance Comments: Patient performed bed mobility and movement to the chair Coordination Movements are Fluid and Coordinated: Yes Postural Control Posture Assessment: forward head, protracted shoulders Righting Reactions: decreased Protective Responses: decreased Static Sitting Balance Static Sitting-Balance Support: Feet supported, Unilateral upper extremity supported Static Sitting-Level of Assistance: Distant supervision Dynamic Sitting Balance Dynamic Sitting-Balance Support: Feet supported, Unilateral upper extremity supported Dynamic Sitting-Balance: Reaching for objects, Forward lean Dynamic Sitting Balance-Level of Assistance: Contact guard Static Standing Balance Static Standing-Balance Support: With device Static Standing-Level of Assistance: Contact guard Dynamic Standing Balance Dynamic Standing-Comments: LOB during movement to chair Functional Assessments Bed Mobility Bed Mobility: Yes Bed Mobility 1 Bed Mobility From 1: Supine Bed Mobility Type 1: To Bed Mobility to 1: Short sit Level of Assistance 1: Close supervision Bed Mobility Comments 1: HOB raised, use of bed rails, extra time needed Transfers Transfer: Yes Transfer 1 Transfer From 1: Sit Transfer Type 1: To and from Transfer to 1: Stand Transfer Device 1: rolling walker Transfer Level of Assistance 1: Contact guard, Minimum assistance Trials/Comments 1: CGA sit to stand from bed; min A stand to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 include distraction techniques or controlledbreathing exercises. ? Medicines, such as: ? Medicines to relax the bladder muscles and prevent bladder spasms. ? Medicines to help slow or prevent the growth of a man's prostate. ? Botox injections. These can help relax the bladder muscles. ? Treatments, such as: ? Using pulses of electricity to help change bladder reflexes (electrical nerve stimulation). ? For women, using a medical technologist prn to prevent urine leaks. This is a [...] that can protect the (more content not included)...[facility]02-[facility]2024 Hospital Discharge instructions Patient Education 10/23/2023 13:23:49 Urinary Incontinence Urinary Incontinence Urinary incontinence refers to a condition in which a person is unable to control where and when topass urine. A person with this condition will urinate involuntarily. This means that the person urinates when he or she does not mean to. What are the causes? This condition may be caused by: Medicines. Infections. Constipation. Overactive bladder muscles. Weak bladder muscles. Weak pelvic floor muscles. These muscles provide support for the bladder, intestine, and, in women,the uterus. Enlarged prostate in men. The prostate [...] a small amount, or constantly dribbling urine (overflowincontinence). Urinating because you cannot get to the [...] fiber include beans, whole grains, and fresh fruitsand vegetables. Behavioral changes, such as: ?Pelvic floor [...] nerve stimulation). ?For women, using a medical technologist prn to prevent urine leaks. This is a small, tampon-like, disposabledevice that is inserted into the urethra. ?Injecting [...] right after experiencing incontinence. General instructions Take yyud-wki-ydoeteb and prescription medicines only as told by [...] important. Where to find more information National [employer] of Diabetes and Digestive and Kidney Diseases: www.niddk.nih.gov [employer]: www.urologyhealth.org Contact a health care [...] is unable to control where and when topass urine. This condition may be caused by medicines, infection, weak bladder muscles, weak pelvic floor muscles, enlargement of the prostate (in men), or surgery. Factors such as older age, obesity, and childbirth, menopause, neurological diseases, andchronic coughing may increase your risk for developing [...] provider. Document Revised: 04/09/2021 Document Reviewed: 04/09/2021 [employer] Patient Education 2022 [employer]. Follow Up Care 07/28/2023 12:50:01 With:RONALD BEAULIEU, Alfredo Moya, URL Address: [facility] [address] , [place] [address]- [phone] When: Unknown [facility] 01-09-2023 Hospital Discharge instructions Patient Education 09/26/2022 13:45:35 Urinary Tract Infection, Adult, Ozvh-et-Pmhe Urinary Tract Infection, Adult A urinary tract infection (UTI) is an infection of any part of the urinary tract. The urinary tractincludes: The kidneys. The ureters. The bladder. The [...] Follow these instructions at home: Medicines Take xznl-jfq-xwndkhh and prescription medicines only as told by [...] small, thin tube to drain pee and notbeing able to control when you pee or poop. Treatment includes antibiotic medicines for germs. Drink enough fluid to keep your pee pale yellow. This information is not intended to replace advice given to you by your health care provider. Make sure you discuss any questions you have with your health care provider. Document Released: 02/20/2009 Document Revised: 08/22/2019 Document Reviewed: 03/14/2019 [employer] Patient Education 2020 [employer]. Follow Up Care 03/04/2022 10:43:44 With:RONALD BEAULIEU, Alfredo Moya, URL Address: [facility] [address], [place] [phone] When:Within 10 Month(s) Comments:CT AP w/ contrast [facility] 06-17-2022 Hospital Discharge instructions Patient Education 03/04/2022 10:39:16 Urinary Tract Infection, Adult Urinary Tract Infection, Adult A urinary tract infection (UTI) is an infection of any part of the urinary tract. The urinary tractincludes the kidneys, ureters, bladder, and urethra. These organs make, store, and get rid of urinein the body. Your health care provider may [...] Treatment for this condition includes: Antibiotic medicine. Wrrp-izi-feisokf medicines to treat discomfort. Drinking enough water to stay hydrated. If you have frequent infections or have other conditions such as a kidney stone, you may need to see a health care provider who specializes in the urinary tract (urologist). In rare cases, urinary tract infections can cause sepsis. Sepsis is a life- threatening condition that occurs when the body responds to an infection. Sepsis is treated in the hospital with IV antibiotics, fluids, and other medicines. Follow these instructions at home: Medicines Take gxqr-ilb-xupvdhp and prescription medicines only as told by your health care provider. If you were prescribed an antibiotic medicine, take it as told by your health care provider. Do notstop using the antibiotic even if you start [...] told by your health care provider. Do notstop using the antibiotic even if you start to feel better. Keep all follow-up visits as told by your health care provider. This is important. This information is not intended to replace advice given to you by your health care provider. Make sure you discuss any questions you have with your health care provider. Document Released: 06/14/2006 Document Revised: 08/22/2019 Document Reviewed: 03/14/2019 [employer] Patient Education 2020 [employer]. Follow Up Care 06/28/2021 14:36:35 With:Alfredo CARDENAS MD, URL Address: [facility] [address] [place] [address]- [phone] When:09/03/2022 [facility] evaluation + Plan note Future Appointments Appointment Date:08/29/2022 01:30:00 PM Scheduled Provider:Alfredo CARDENAS MD Location:[facility] Appointment Type:URO Office Visit [facility] evaluation + Plan note Future Appointments Appointment Date:07/24/2023 01:15:00 PM Scheduled Provider:Alfredo CARDENAS MD Location:[facility] Appointment Type:URO Office Visit [facility] evaluation + Plan note Future Appointments Appointment Date:01/22/2024 11:45:00 AM Scheduled Provider:Alfredo CARDENAS MD Location:[facility] Appointment Type:URO Office Visit [facility] evaluation + Plan note Future Appointments Appointment Date:09/30/2024 01:15:00 PM Scheduled Provider:Alfredo CARDENAS MD Location:[facility] Appointment Type:URO Office Visit [facility] evaluation + Plan note Future Appointments Appointment Date:10/07/2024 12:30:00 PM Scheduled Provider:Alfredo CARDENAS MD Location:[facility] Appointment Type:URO Office Visit [facility] evaluation + Plan note Future Appointments Appointment Date:11/24/2025 01:15:00 PM Scheduled Provider:Alfredo CARDENAS MD Location:[facility] Appointment Type:URO Office Visit [facility] evaluation noteNo assessment information available [facility] Work Phone: evaluation note* Diagnosis Onset Date Resolution Status Bilateral primary osteoarthritis of knee acute Lymphedema acute Nicotine use acute Poor dental hygiene acute Weakness generalized acute [facility] Work Phone: evaluation note* Diagnosis Insomnia due to medical condition Organic insomnia, unspecified [facility] Diagnosis Anxiety Anxiety state, unspecified [facility]* Diagnosis Routine general medical examination at health care facility- Primary Routine general medical examination at a health care facility ACP (advance care planning) Other specified counseling Spinal stenosis, lumbar region with neurogenic claudication Stage 3b chronic kidney disease (HCC) (CMS/HCC) Pulmonary fibrosis, unspecified ([facility]/HCC) Type 2 diabetes mellitus with diabetic peripheral angiopathy without gangrene ([facility]) Localized edema Edema [facility] Diagnosis Stage 3b chronic kidney disease (HCC) ([facility]/HCC)- Primary Pulmonary fibrosis, unspecified (CMS/HCC) Localized edema Edema Anxiety Anxiety state, unspecified Depressive disorder ([facility]) Depressive disorder, not elsewhere classified documented [facility]* Diagnosis Thyroid nodule ([facility])- Primary Nontoxic uninodular goiter Type 2 diabetes mellitus with diabetic chronic kidney disease ([facility]/HCC) Chronic kidney disease, stage 4 (severe) ([facility]) Hair loss Unspecified alopecia Other fatigue Weight loss Loss of weight Depressive disorder ([facility]) Depressive disorder, not elsewhere classified Decreased estrogen level documented [facility]* Diagnosis Atherosclerosis of [place] coronary artery of [place] heart with stable angina pectoris- Primary Type 2 diabetes mellitus with stage 4 chronic kidney disease, without long-term current use of insulin ([facility]) Insomnia due to medical condition Organic insomnia, unspecified Chronic kidney disease, stage 4 (severe) ([facility]) Primary osteoarthritis of both knees documented [facility]* Diagnosis Benign essential hypertension Essential hypertension, benign Gastroesophageal reflux disease, unspecified whether esophagitis present Insomnia due to medical condition Organic insomnia, unspecified [facility] Diagnosis Benign essential hypertension- Primary Essential hypertension, benign Chronic kidney disease, stage 4 (severe) ([facility]) Localized edema Edema Right flank pain Abdominal pain, unspecified site Routine lab draw documented [facility]* Diagnosis Onset Date Resolution Status Admit Date TOMASA (acute kidney injury) acute April 08, 2025 3:58pm Anemia acute April 08 3:58pm Chronic kidney disease, stag e IV (severe) acute April 08, 2025 3:58pm Proteinuria acute April 08 3:58pm [facility] Work Phone: Hospital course Narrative No data available for this section [facility] Hospital Discharge instructions Additional Instructions [facility] to manage care: - Full code - PT/OT eval and treat - Routine vital signs - Avoid NSAIDs - GI office will follow-up pathology for H. pylori and if positive recommend 14 days of quad therapy - otherwise, patient will not need outpatient GI follow-up - Renal function panel in 7 days [facility]: Progress note No data available for this section [facility] reason for referral (narrative)No reason for referral [facility]: Summary Purpose Family History No Family History Records Found Relationship Condition Age at Onset Recorded Date/T katherine Not Specified Myocardial infarction Unknown father Myocardial infarction Unknown Relationship Condition Age at Onset Recorded Date/T katherine mother Myocardial infarction Unknown father Myocardial infarction Unknown [...] Nicotine use Poor dental hygiene Weakness generalized Chief Complaint Admit Date Proteinuria & CKD 4 April 08, 2025 3:58 pm Reason for Visit Admit Date TOMASA (acute kidney injury) April 08 3:58pm Anemia April 08, 2025 3:58 pm Chronic kidney disease, stage IV (severe ) April 08, 2025 3:58pm Proteinuria April 08, 2025 3:58 pm Chief Complaint Admit Date Proteinuria & CKD 4 April 08, 2025 3:58 pm Sent by Ticket Broker April 08, 2025 9:1 6pm Reason for Visit Admit Date TOMASA (acute kidney injury) April 08 3:58pm Anemia April 08, 2025 3:58 pm Chronic kidney disease, stage IV (severe ) April 08, 2025 3:58pm Hypertensive nephropathy April 08, 2025 3:58pm Proteinuria April 08, 2025 3:58 pm Acute kidney injury superimposed on CKD April 08, 2025 9:16pm Anemia April 08, 2025 9:16 pm Fluid overload April 08, 2025 9:16 pm Hypertensive emergency April 08, 2025 9 :16pm Hypertensive nephropathy April 08, 2025 9:16pm Lower GI bleed April 08, 2025 9:16 pm Melena April 08, 2025 9:16 pm Reason for Visit Admit Date TOMASA (acute kidney injury) April 08 3:58pm Anemia April 08, 2025 3:58 pm Chronic kidney disease, stage IV (severe ) April 08, 2025 3:58pm Hypertensive nephropathy April 08, 2025 3:58pm Proteinuria April 08, 2025 3:58 pm Acute kidney injury superimposed on CKD April 08, 2025 9:16pm Anemia April 08, 2025 9:16 pm Chronic kidney disease, stage IV (severe ) April 08, 2025 9:16pm Fluid overload April 08, 2025 9:16 pm Hypertensive emergency April 08, 2025 9 :16pm Hypertensive nephropathy April 08, 2025 9:16pm Lower GI bleed April 08, 2025 9:16 pm Melena April 08, 2025 9:16 pm Proteinuria April 08, 2025 9:16 pm Weakness generalized April 08, 2025 9:1 6pm Additional Source Comments INFORMATION SOURCE (unrecogn ized section and content) DATE CREATED AUTHOR 07/06/2018 [facility] ([place], [place]) DATE CREATED AUTHOR AUTHOR'S ORGANIZ ATION 01/26/2023 [facility] DATE CREATED AUTHOR AUTHOR'S ORGANIZ ATION 11/19/2024 [facility] DATE CREATED AUTHOR AUTHOR'S ORGANIZ ATION 03/28/2025 [facility] DATE CREATED AUTHOR AUTHOR'S ORGANIZ ATION 04/07/2025 [facility] DATE CREATED AUTHOR AUTHOR'S ORGANIZ ATION 04/07/2025 [facility] DATE CREATED AUTHOR AUTHOR'S ORGANIZ ATION 05/27/2025 [facility] Care Teams (unrecognized sec tion and content) [...] Courtney ramirez 2023 End: February 05, 2024 [employer] Relationship Specialty Start Date End Date Jack Vogt MD [address] [place] [address] PCP - General Internal Medicine 01/24/23 [employer] Relationship Specialty Start Date End Date Jack Vogt MD [address] [place] [address] PCP - General Internal Medicine 01/24/23 [employer] Relationship Specialty Start Date End Date Jack Vogt MD [address] [facility] [address] [place] [address] PCP - General Internal Medicine 01/24/23 [employer]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 Relationship Specialty Start Date End Date Jack Vogt MD [address] [place] [address] PCP - General Internal Medicine 01/24/23 [employer]acer Relationship Specialty Start Date End Date Jack Vogt MD [address] [place] [address] PCP - General Internal Medicine 01/24/23 [employer] Relationship Specialty Start Date End Date Jack Vogt MD [address] [place] [address] PCP - General Internal Medicine 01/24/23 [employer] Relationship Specialty Start Date End Date Jack Vogt MD [address] [place] [address] PCP - General Internal Medicine 01/24/23 [employer] Relationship Specialty Start Date End Date Jack Vogt MD [address] [place] [address] PCP - General Internal Medicine 01/24/23 [employer] Relationship Specialty Start Date End Date Jack Vogt MD [address] [place] [address] PCP - General Internal Medicine 01/24/23 [employer] Relationship Specialty Start Date End Date Jack Vogt MD [address] [place] [address] PCP - General Internal Medicine 01/24/23 [employer] Relationship Specialty Start Date End Date Jack Vogt MD [address] [facility] [address] [place] [address] PCP - General Internal Medicine 01/24/23 Team Status: Inactive Member Role Status Dates Jack Vogt II MD Primary Care Provider Active Start: April 08, 2025 End: April 08, 2025 Elsy Patino MD Attending Provider Active Star t: April 08, 2025 End: April 08, 2025 Team Status: Active Member Role Status Dates Jack Vogt II MD Primary Care Provider Active Start: April 08, 2025 Sohail Figueroa PA-C Emergency Provider Active Start: April 08, 2025 Rajiv Trejo MD Admit Provider Active Sta rt: April 08, 2025 Rajiv Trejo MD Attending Provider Active Start: April 08, 2025 Team Status: Active Member Role Status Dates Jack Vogt II MD Primary Care Provider Active Start: April 08, 2025 Sohail Figueroa PA-C Emergency Provider Active Start: April 08, 2025 Rajiv Trejo MD Admit Provider Active Sta rt: April 08, 2025 Nick Antonio MD Other Provider Active Start: April 08, 2025 Kana Vazquez MD Other Provider Active Start : April 08, 2025 Judy Espinosa MD Other Provider Active Start: Demetris vaughn 2024 Estrella Velásquez MD Other Provider Active Start: Shavon bland 2024 Andrew Arrington MD Attending Provider Active Star t: April 08, 2025 Andrew Arrington MD Other Provider Active Start: Demetris vaughn 2024 Estefania Yoder APRN Other Provider Active St art: April 08, 2025 [place] Nigel Koehler Jr, DO Other Provider Active S tart: April 08, 2025 Pilo Harry MD Other Provider Active Start: April 08, 2025 Goals (unrecognized section and content) Type Treatment Intervention Code Status: Full Code Reason for Visit (unrecogniz ed section and content) Reason Comments Med Refill Reason Comments Medicare Annual Wellness Visit Subsequen t Med Refill Would like rx for hy drocodone--states she gets 2 Reason Comments Diabetes Edema Results Lab results Med Refill Cymbalta[facility]Need note stating she can participate in water exercisesPt brought letter from ins co re: taking fenobibrate and zetia together Reason Comments Follow-up Transferred to [facility] from [facility] 03/13/25 dx: HTN urgency,NSTEMI discharged home03/20/25 med changes made follow up with cardiology 04/02/25 and nephrology 05/06/25 discuss referral Pt would like a refe rral sent to [place] in [place] she [place] not want to go to [place] Reason Onset Date Comments Med Refill 03/25/2025 Reason Comments Hypertension swelling of lower extremities right flank pain FOR RECORDS PERTAINING TO PATIENTS WHO ARE [...] BE BASED ON THE PRIMARY CLINICAL RECORDS. [facility] provides no warranty or guarantee of the accuracy or completeness of information in this document.
[2025-06-05 19:05] VITALS: BP 165/61; PULSE 65; TEMP 37; O2SAT 98; BMI 30.1
--- NOTE | 2025-06-05 23:21 | ED.GENADUL1 ---
HPI HPI - General Adult General Chief complaint: Nausea/Vomiting/Diarrhea Stated complaint: DIARRHEA, SWOLLEN FEET Source: family Mode of arrival: Wheelchair Limitations: no limitations Related Data Home Medications ?Medication ?Instructions ?Recorded ?Confirmed apixaban 2.5 mg tablet (Eliquis) 2.5 mg PO Q12H 09/18/23 03/12/25 duloxetine 30 mg capsule,delayed 30 mg PO QDAY 09/18/23 03/12/25 release ezetimibe 10 mg tablet 10 mg PO QDAY 09/18/23 03/12/25 fenofibrate nanocrystallized 145 145 mg PO QDAY 09/18/23 03/12/25 mg tablet hydralazine 25 mg tablet 50 mg PO TID 09/18/23 03/12/25 isosorbide mononitrate 60 mg 60 mg PO QDAY 09/18/23 03/12/25 tablet,extended release 24 hr pantoprazole 40 mg tablet,delayed 40 mg PO QDAY 09/18/23 03/12/25 release valsartan 320 mg tablet 320 mg PO QDAY 09/18/23 03/12/25 zolpidem 10 mg tablet 10 mg PO .QHS PRN sleep 09/18/23 03/12/25 bupropion HCl 75 mg tablet 75 mg PO DAILY 03/12/25 03/12/25 nitroglycerin 0.4 mg sublingual 0.4 mg sublingual Q5M PRN chest 03/12/25 03/12/25 tablet pain Previous Rx's ?Medication ?Instructions ?Recorded metoprolol tartrate 75 mg tablet 75 mg PO BID #60 tabs 09/20/23 Allergies Allergy/AdvReac Type Severity Reaction Status Date / Time iodine Allergy Anaphylaxis Verified 09/18/23 20:23 Opioid HPI Opioid Management Most Recent Opioid Data: Last Pain Scale 9 03/12/25, 19:23 PFSH [facility] Medical History (Updated 03/12/25 @ 20:46 by Isabel Jones MD) Chronic heart failure with preserved ejection fraction (HFpEF) ?I50.32 - Chronic diastolic (congestive) heart failure (ICD-10) Stage 3b chronic kidney disease (CKD) ?N18.32 - Chronic kidney disease, stage 3b (ICD-10) CAD (coronary artery disease) ?I25.10 - Atherosclerotic heart disease of [place] coronary artery without angina pectoris (ICD-10) History of pulmonary embolism ?Z86.711 - Personal history of pulmonary embolism (ICD-10) Hypertension ?I10 - Essential (primary) hypertension (ICD-10) PVD (peripheral vascular disease) ?I73.9 - Peripheral vascular disease, unspecified (ICD-10) High cholesterol ?E78.00 - Pure hypercholesterolemia, unspecified (ICD-10) DVT (deep venous thrombosis) ?I82.409 - Acute embolism and thrombosis of unspecified deep veins of unspecified lower extremity (ICD-10) Pulmonary air embolism ?T79.0XXA - Air embolism (traumatic), initial encounter (ICD-10) CHF (congestive heart failure) ?I50.9 - Heart failure, unspecified (ICD-10) 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 ?I70.201 - Unspecified atherosclerosis of [place] arteries of extremities, right leg (ICD-10) Stenosis of artery of left lower extremity ?I70.202 - Unspecified atherosclerosis of [place] arteries of extremities, left leg (ICD-10) Fibromyalgia ?M79.7 - Fibromyalgia (ICD-10) Osteoporosis ?M81.0 - Age-related osteoporosis without current pathological fracture (ICD-10) Osteoarthritis ?M19.90 - Unspecified osteoarthritis, unspecified site (ICD-10) Heart attack ?I21.9 - Acute myocardial infarction, unspecified (ICD-10) Surgical History (Updated 03/12/25 @ 23:46 by Rama Newman RN) Hx of CABG ?Z95.1 - Presence of aortocoronary bypass graft (ICD-10) H/O colectomy ?Z90.49 - Acquired absence of other specified parts of digestive tract (ICD-10) Family History (Updated 09/19/23 @ 00:15 by Divya Mendoza) Father Family history of myocardial infarction Family history of hypertension Mother Family history of myocardial infarction Family history of stroke Family history of hypertension Brother Family history of hypertension Family history of cancer Sister Family history of cancer Social History (Updated 09/19/23 @ 00:19 by Divya Mendoza) Smoking status: Current every day smoker Second hand tobacco smoke exposure: No Non-prescribed substance use: cannabis (any form) Previous occupational history: retired Known occupational exposures/hazards: No Highest level of school completed/degree received: some college, no degree Do you want help with school or training: No Are you now , , , , never or living with a partner: In a typical week, how many times do you talk on the telephone with family, friends, or neighbors: 3 or more times per week How often do you get together with friends or relatives: 3 or more times per week How often do you attend hoahaoism or taoism services: never Do you belong to any clubs or organizations such as hoahaoism groups unions, [employer] or athletic groups, or school groups: no Total score: 1 Score interpretation: A score of less than or equal to 1 indicates the most socially isolated. Little interest or pleasure in doing things: not at all Feeling down, depressed, or hopeless: not at all Feel stressed/tense/nervous/anxious/difficulty sleeping: to some extent Life stressors: unknown source of stress Due to disability, difficulty making decisions: No Do you think of yourself as: straight/heterosexual Gender Identity: female Exam Constitutional Vital Signs, click to edit/add: Last Vital Signs Temp 98.6 F 06/05/25 19:05 Pulse 65 06/05/25 19:05 Resp 18 06/05/25 19:05 BP 165/61 H 06/05/25 19:05 Pulse Ox 98 06/05/25 19:05 O2 Del Method Room Air 06/05/25 19:05 Course Vital Signs Vital signs: Vital Signs Temperature 98.6 F 06/05/25 19:05 Pulse Rate 65 06/05/25 19:05 Respiratory Rate 18 06/05/25 19:05 Blood Pressure 165/61 H 06/05/25 19:05 Pulse Oximetry 98 06/05/25 19:05 Oxygen Delivery Method Room Air 06/05/25 19:05 Temperature 98.6 F 06/05/25 19:05 Pulse Rate 65 06/05/25 19:05 Respiratory Rate 18 06/05/25 19:05 Blood Pressure 165/61 H 06/05/25 19:05 Pulse Oximetry 98 06/05/25 19:05 Oxygen Delivery Method Room Air 06/05/25 19:05 Medical Decision Making MDM Narrative Medical decision making narrative: Patient left waiting room before I was able to see him. Left without being seen by ED provider. Discharge Plan Discharge Patient Disposition: Left Without Being Seen Discharge Date/Time: 06/05/25 19:45
== END 2025-06-05 19:45 | disposition left against medical advice (07) ==
PROVIDERS: Emergency Provider Student in an Organized Health Care Education/Training Program; PCP Internal Medicine
DX: Z53.21 Procedure and treatment not carried out due to patient leaving prior to being seen by health care provider (principal)
CPT/HCPCS: 99281

== ENCOUNTER 2025-06-09 12:29 | Outpatient (OUT) | payer MEDICARE, SELFPAY ==
--- OUTSIDE RECORDS SUMMARY | 2025-06-09 11:15 | XMS_ITS | Encounter Summary ---
Author Organization [facility] Address [address] [place] [address] Care Team Providers Care Swatcher Name Role Phone Jack Vogt MD Primary Care Provider [phone] Reason for Visit * Reason Comments Weight Loss Encounter Details Date Type Department Care Team ([facility] Contact Info) Description 06/09/2025 11:15 AM EDT Office Visit [facility] 110 [place] [id number] Jack Vogt MD 112 [facility] 110 [place] [address] Chronic kidney disease, stage 4 (severe) (HCC) (Primary Dx); Benign essential hypertension ; Functional diarrhea; 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 ; Chronic diastolic congestive heart failure (HCC) Social History Tobacco Use Types Packs/Day Years [...] on file documented as of this encounter Last Filed Vital Signs Vital Sign Reading Time Taken Comments Blood Pressure 160/84 06/09/2025 11:14 AM EDT Pulse 57 06/09/2025 11:14 AM EDT Temperature - - Respiratory Rate - - Oxygen Saturation 98% 06/09/2025 11:14 AM EDT Inhaled Oxygen Concentration - - Weight 58.5 kg (129 lb) 06/09/2025 11:14 AM EDT Height 157.5 cm (5' 2 ) 06/09/2025 11:14 AM EDT Body Mass Index 23.59 06/09/2025 11:14 AM EDT documented in this encounter Plan of Treatment Upcoming Encounters Date Type Department Care Team (Late st Contact Info) Description 06/23/2025 3:30 PM EDT Office Visit [facility] [address] [facility] 110 [place] [address] Jack Vogt MD 112 [facility] 110 [place] [address] Scheduled Orders Name Type Priority Associated Diagnoses Orde r Schedule B-type natriuretic peptide Lab Routine Chronic kidney disease, stage 4 (severe) (HCC) Chronic diastolic congestive heart failure (HCC) Expected: 06/09/2025 (Approximate), Expires: 06/09/2026 Comprehensive metabolic panel Lab Routine Chronic kidney disease, stage 4 (severe) (HCC) Expected: 06/09/2025 (Approximate), Expires: 06/09/2026 TSH W/REFLEX TO FT4 Lab Routine Chronic kidney disease, stage 4 (severe) (HCC) Expected: 06/09/2025 (Approximate), Expires: 06/09/2026 CBC and differential Lab Routine Chronic kidney disease, stage 4 (severe) (HCC) Ordered: 06/09/2025 documented as of this encounter Goals Goal Patient Goal Type Associated Problems Recent Progress Patient-Stated? 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
--- OUTSIDE RECORDS SUMMARY | 2025-06-09 12:33 | XMS_ITS | Encounter Summary ---
Author Organization [facility] Address [address] [place] [address] Care Team Providers Care Mechanical Integrity Engineer Name Role Phone Jack Vogt MD Primary Care Provider [phone] Encounter Details Date Type Department Care Team (Late Contact Info) Description 04/24/2025 Abstract [facility] [place] [address] [facility] 110 [place] [address] Jack Vgot MD [address] [facility] 110 [place] [address] Social History Tobacco Use Types Packs/Day Years [...] Department Care Team (Late Contact Info) Description 06/23/2025 3:30 PM EDT Office Visit [facility] [place] [address] [facility] 110 [place] [address] Jack Vogt MD [address] [facility] 110 [place] [address] documented as of this encounter Goals Goal Patient Goal Type Associated Problems Recent Progress Patient-Stated? Author Help patient manage antidepressant medication Care Plan Patient on antidepressant monitoring plan No Renetta Burton, PROFESSIONAL NURSING ASSISTANT documented as of this encounter Visit Diagnoses Not on filedocumented in this encounter Additional Health Concerns Active Problems Noted Date Diagnosed Date Patient on antidepressant monitoring plan 2024 Assessment Noted Time PHQ-9 Depression Total Score: 15 025 11:31 AM EDT documented as of this encounter Care Teams Mechanical Integrity Engineer Relationship Specialty Start Date End Date Jack Vogt MD 112 [place] [address] PCP - General Internal Medicine 01/24/23 documented as of this encounter
--- OUTSIDE RECORDS SUMMARY | 2025-06-09 12:33 | XMS_ITS | Encounter Summary ---
Author Organization [facility] Address [address] [facility] [place] [address] Care Team Providers Care Lpta Name Role Phone Jack Vogt MD Primary Care Provider [phone] Encounter Details Date Type Department Care Team (Late Contact Info) Description 05/26/2025 Abstract [facility] [place] [address] [facility] 110 [place] [address] Jack Vogt MD [address] [facility] 110 [place] [address] Social History Tobacco Use Types Packs/Day Years [...] Visit [facility] [place] [address] [facility] 110 [place] [address] Jack Vogt MD [address] [facility] 110 [place] [address] documented as of this encounter Goals Goal Patient Goal Type Associated Problems Recent Progress Patient-Stated? Author Help patient manage antidepressant medication Care Plan Patient on antidepressant monitoring plan No Renetta Burton, LAVATORY ATTENDANT documented as of this encounter Visit Diagnoses Not on filedocumented in this encounter Additional Health Concerns Active Problems Noted Date Diagnosed Date Patient on antidepressant monitoring plan 2024 Assessment Noted Time PHQ-9 Depression Total Score: 15 025 11:31 AM EDT documented as of this encounter Care Teams Lpta Relationship Specialty Start Date End Date Jack Vogt MD 112 [place] [address] PCP - General Internal Medicine 01/24/23 documented as of this encounter
--- OUTSIDE RECORDS SUMMARY | 2025-06-09 12:33 | XMS_ITS | Encounter Summary ---
Author Organization [facility] Address [address] [facility] [place] [address] Care Team Providers Care Gas Leak Inspector Name Role Phone Jack Vogt MD Primary Care Provider [phone] Encounter Details Date Type Department Care Team ([facility] Contact Info) Description 09/21/2023 Abstract [facility] 112 [facility] 110 [place] [address] Jack Vogt MD 112 [facility] 110 [place] [address] Social History Tobacco Use Types Packs/Day Years [...] Upcoming Encounters Date Type Department Care Team ([facility] Contact Info) Description 06/23/2025 3:30 PM EDT Office [facility] 112 [facility] [address] [place] [address] Jack Vogt MD 112 [facility] 110 [place], [place] [id number] documented as of this encounter Visit Diagnoses Not on filedocumented in this encounter Care Teams Gas Leak Inspector Relationship Specialty Start Date End Date Jack Vogt MD 112 [facility] 110 [place] [address] PCP - General Internal Medicine 01/24/23 documented as of this encounter
--- OUTSIDE RECORDS SUMMARY | 2025-06-09 12:33 | XMS_ITS | Encounter Summary ---
Author Organization [facility] Address [address] [facility] [place] [address] Care Team Providers Care Theoretical Physics Teacher Name Role Phone Jack Vogt MD Primary Care Provider [phone] Encounter Details Date Type Department Care Team (Late Contact Info) Description 09/19/2023 Orders Only [facility] [address] [facility] 110 [place] [address] A, Unknown Practice [address] [place], [place] [phone] Social History Tobacco Use Types Packs/Day Years [...] 06/23/2025 3:30 PM EDT Office Visit [facility] [facility] [address] [facility] 110 [place] [address] Jack Vogt MD [address] [facility] 110 [place] [address] documented as of this encounter Procedures Procedure [...] on filedocumented in this encounter Care Teams Theoretical Physics Teacher Relationship Specialty Start Date End Date Jack Vogt MD 112 [place] [address] PCP - General Internal Medicine 01/24/23 documented as of this encounter
--- OUTSIDE RECORDS SUMMARY | 2025-06-09 12:33 | XMS_ITS | Encounter Summary ---
Author Organization [facility] Address [address] [facility] [place] [address] Care Team Providers Care Glass Production Machine Operator Name Role Phone Jack Vogt MD Primary Care Provider [phone] Encounter Details Date Type Department Care Team (Late Contact Info) Description 04/09/2025 Abstract [facility] [place] [address] [facility] 110 [place] [address] Jack Vogt MD [address] [facility] 110 [place] [address] Social History Tobacco Use Types Packs/Day Years [...] Visit [facility] Bill [place] [address] [facility] 110 [place] [address] Jack Vogt MD [address] [facility] 110 [place] [address] documented as of this encounter Goals Goal Patient Goal Type Associated Problems Recent Progress Patient-Stated? Author Help patient manage antidepressant medication Care Plan Patient on antidepressant monitoring plan No Renetta Burton, TOOL SHARPENER documented as of this encounter Visit Diagnoses Not on filedocumented in this encounter Additional Health Concerns Active Problems Noted Date Diagnosed Date Patient on antidepressant monitoring plan 2024 Assessment Noted Time PHQ-9 Depression Total Score: 15 025 11:31 AM EDT documented as of this encounter Care Teams Glass Production Machine Operator Relationship Specialty Start Date End Date Jack Vogt MD 112 [place] [address] PCP - General Internal Medicine 01/24/23 documented as of this encounter
--- OUTSIDE RECORDS SUMMARY | 2025-06-09 12:33 | XMS_ITS | Encounter Summary ---
Author Organization [facility] Address [address] [facility] [place] [address] Care Team Providers Care Hostess Name Role Phone Jack Vogt MD Primary Care Provider [phone] Encounter Details Date Type Department Care Team ([facility] Contact Info) Description 10/18/2023 Abstract [facility] Bill Wheeler 112 [facility] 110 [place] [address] Jack Vogt MD [address] [place] [facility] 110 [place] [address] Social History Tobacco Use Types Packs/Day Years [...] Type Department Care Team ([facility] Contact Info) Description 06/23/2025 3:30 PM EDT [facility] 112 [facility] 110 [place] [address] Jack Vogt MD [address] [place] [facility] 110 [place], [place] [phone] documented as of this encounter Visit Diagnoses Not on filedocumented in this encounter Care Teams Hostess Relationship Specialty Start Date End Date Jack Vogt MD [address] [facility] 110 [place] [address] PCP - General Internal Medicine 01/24/23 documented as of this encounter
--- OUTSIDE RECORDS SUMMARY | 2025-06-09 12:33 | XMS_ITS | Encounter Summary ---
Author Organization [facility] Address [address] [facility] [place] [address] Care Team Providers Care Roving Frame Tender Name Role Phone Jack Vogt MD Primary Care Provider [phone] Encounter Details Date Type Department Care Team (Late Contact Info) Description 12/14/2023 Abstract [facility] Bill [facility] [address] [facility] 110 [place] [address] Jack Vogt MD [address] [facility] 110 [place] [address] Social History Tobacco Use Types Packs/Day Years [...] 3:30 PM EDT Office Visit [facility] Bill Farooq [address] [facility] 110 [place] [address] Jack Vogt MD 112 [facility] 110 [place] [address] documented as of this encounter Visit Diagnoses Not on filedocumented in this encounter Care Teams Roving Frame Tender Relationship Specialty Start Date End Date Jack Vogt MD 112 [facility] 110 [place] [id number] PCP - General Internal Medicine 01/24/23 documented as of this encounter
--- OUTSIDE RECORDS SUMMARY | 2025-06-09 12:33 | XMS_ITS | Encounter Summary ---
Author Organization [facility] Address [address] [facility] [place] [address] Care Team Providers Care Hand Winder Name Role Phone Jack Vogt MD Primary Care Provider [phone] Encounter Details Date Type Department Care Team (Late Contact Info) Description 02/06/2024 Orders Only [facility] Bill [place] [address] [facility] 110 [place] [address] Unallocated, [facility] [address] [place], [place] [id number] Social History Tobacco Use Types Packs/Day Years [...] 3:30 PM EDT Office Visit [facility] Bill [place] [address] [facility] [address] [place] [address] Jack Vogt MD [address] [facility] 110 [place], [place] [phone] documented as of this encounter Procedures Procedure Name Priority Date/Time Associated Diagnosis Comments MAMMOGRAM* Routine 02/05/2024 1:10 PM EDT documented in this encounter Results * MAMMOGRAM* (02/05/2024 1:10 PM EDT) Anatomical Region Laterality Modality Radiographic Ruma ging us [facility] Provider Unallocated MD ARAUZ XR PROCEDURES F inal Result documented in this encounter Visit Diagnoses Not on filedocumented in this encounter Care Teams Hand Winder Relationship Specialty Start Date End Date Jack Vogt MD 112 [facility] 110 [place] [address] PCP - General Internal Medicine 01/24/23 documented as of this encounter
--- OUTSIDE RECORDS SUMMARY | 2025-06-09 12:33 | XMS_ITS | Clinical Summary ---
Author Organization [facility] Address [address] [place] [address] Care Team Providers Care Merchandise Processor Name Role Phone Jack Vogt MD Primary Care Provider [phone] Allergies Active Allergy Reactions Criticality Noted Date [...] Comments) Varenicline 05/09/2023 Other Reaction(s): Vomiting Medications nitroglycerin (Nitrostat) 0.4 MG SL tabletIndications: Atherosclerosis of [place] coronary artery of [place] heart with stable angina pectoris Place 1 tablet (0.4 mg) under the tongue every 5 (five) minutes if needed for chest pain 90 tablet 12 4 Active fenofibrate (Tricor) 145 MG tabletIndications: Mixed hyperlipidemia TAKE 1 TABLET BY MOUTH EVERY DAY 90 tablet 4 5 Active ezetimibe (Zetia) 10 MG tabletIndications: Stage 3b chronic kidney disease ([facility]) TAKE 1 TABLET BY MOUTH EVERY DAY 90 tablet 3 5 Active apixaban (Eliquis) 2.5 MG tabletIndications: Personal history of other venous thrombosis and embolism Take 1 tablet (2.5 mg) by mouth in the morning and 1 tablet (2.5 mg) before bedtime. 200 tablet 3 5 Active zolpidem (Ambien) 5 MG tabletIndications: Insomnia due to medical condition Take 1 tablet (5 mg) by mouth as needed at bedtime for sleep 30 tablet 5 5 09/20/19 26 Active traMADol (Ultram) 50 MG tabletIndications: Primary osteoarthritis of both knees Take 1 tablet (50 mg) by mouth every 8 (eight) hours if needed for severe pain 60 tablet 2 5 06/22/20 25 Active carvedilol (Coreg) 25 MG tabletIndications: Benign essential hypertension Take 1 tablet (25 mg) by mouth in the morning and 1 tablet (25 mg) in the evening. Take with meals. 180 tablet 3 5 Active pantoprazole (ProtoNix) 40 MG EC tabletIndications: Gastroesophageal reflux disease, unspecified whether esophagitis present Take 1 tablet (40 mg) by mouth Daily 90 tablet 3 5 Active escitalopram (Lexapro) 5 MG tabletIndications: Depressive disorder Take 1 tablet (5 mg) by mouth in the morning. 30 tablet 3 5 07/29/20 25 Active hydrALAZINE (Apresoline) 100 MG tabletIndications: Benign essential hypertension Take 1 tablet (100 mg) by mouth in the morning and 1 tablet (100 mg) in the evening and 1 tablet (100 mg) before bedtime. 90 tablet 11 5 03/31/20 26 Active doxazosin (Cardura) 2 MG tabletIndications: Atherosclerosis of [place] coronary artery of [place] heart with stable angina pectoris Take 1 tablet (2 mg) by mouth in the morning. 30 tablet 3 5 07/29/20 25 Active NIFEdipine XL (Procardia XL) 90 MG 24 hr tabletIndications: Atherosclerosis of [place] coronary artery of [place] heart with stable angina pectoris Take 1 tablet (90 mg) by mouth in the morning and 1 tablet (90 mg) before bedtime. 180 tablet 3 5 Active cloNIDine (Catapres) 0.1 MG tabletIndications: Benign essential hypertension Take 1 tablet (0.1 mg) by mouth in the morning and 1 tablet (0.1 mg) in the evening and 1 tablet (0.1 mg) before bedtime. 270 tablet 3 5 Active aspirin 81 MG EC tablet Take 81 mg by mouth Daily Active furosemide (Lasix) 40 MG tablet Take 40 mg by mouth in the morning and 40 mg before bedtime. 5 Active isosorbide mononitrate ER (Imdur) 30 MG 24 hr tablet Take 30 mg by mouth Daily 5 04/04/20 26 Active ondansetron (Zofran) 4 MG tabletIndications: Nausea Take 1 tablet (4 mg) by mouth every 8 (eight) hours if needed for nausea or vomiting for up to 10 days 30 tablet 5 05/18/20 25 Active Problems Problem Noted Date Diagnosed Date Lymphedema 04/24/2024 Stage 3b chronic kidney disease 10/04/2023 Localized edema 10/04/2023 Kidney lesion 05/10/2023 Pulmonary embolism with infarction 05/05/2023 Atherosclerosis of [place] co ronary artery of [place] heart with stable angina pectoris 05/05/2023 GERD [...] 30.0-34.9) 05/05/2023 Non-intractable vomiting with nausea 05/05/2023 Insomnia due to medical condition 05/05/2023 [...] 05/17/2021 History of thromboembolism of vein 03/31/2021 History of coronary artery bypass surgery 2019 History of coronary artery stent placement 01/08 Allergy to statin medication 10/07/2019 Current nicotine use 02/27/2019 Lumbosacral spondylosis without myelopathy 10/12 Cardiovascular stress test abnormal 05/23/2018 Chest pain 05/23/2018 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 Neurogenic claudication 03/08/2018 Resolved Problems Problem Noted Date Diagnosed Date Resolved Date Generalized abdominal pain 05/05/2023 0 04/03/2025 Type 2 diabetes mellitus wit h other diabetic kidney complication 05/05/2023 03/20/2024 Sinusitis 04/30/2020 04/03/2025 Diabetic renal disease 10/24/201903/20 Encounters Date Type Department Care Team Description 06/09/2025 11:15 AM EDT Office Visit [facility] [address] [place] [address] Jack Vogt MD Chronic kidney disease, stage 4 (severe) (HCC) (Primary Dx); Benign essential hypertension ; Functional diarrhea; 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 ; Chronic diastolic congestive heart failure (HCC) 06/09/2025 Telephone [facility] [address] [place] [address] Jack Vogt MD call with options 06/09/2025 AudienceScienceheet [facility] [address] [place] [address] Jack Vogt MD 06/09/2025 Travel 05/26/2025 Abstract [facility] [address] [place] [address] Jack Vogt MD 05/21/2025 Abstract [facility] [address] [place] [address] Jack Vogt MD 05/14/2025 Telephone [facility] [address] [place] [address] Jack Vogt MD 05/13/2025 Abstract [facility] [address] [place] [address] Jack Vogt MD 05/12/2025 Abstract [facility] [address] [place] [address] Jack Vogt MD 05/08/2025 Telephone [facility] [address] [place] [address] Jack Vogt MD Nausea 04/29/2025 Abstract [facility] [address] [place] [address] Jack Vogt MD 04/29/2025 Abstract [facility] [address] [place] [address] Jack Vogt MD 04/24/2025 Abstract [facility] [address] [place] [address] Jack Vogt MD 04/24/2025 Abstract [facility] [address] [place] [address] Jack Vogt MD 04/24/2025 Abstract [facility] [address] [place] [address] Jack Vogt MD 04/17/2025 Abstract [facility] [address] [place] [address] Jack Vogt MD 04/15/2025 Telephone [facility] [address] [place] [address] Jack Vogt MD 04/15/2025 Patient Outreach [facility] [address] [place] [address] Lucy Dooley LPN 04/14/2025 Abstract [facility] [address] [place] [address] Jack Vogt MD 04/10/2025 Abstract [facility] [address] [place] [address] Jack Vogt MD 04/10/2025 Abstract [facility] [address] [place] [address] Jack Vogt MD 04/10/2025 Abstract [facility] [address] [place] [address] Jack Vogt MD 04/09/2025 Abstract [facility] [address] [place] [address] Jack Vogt MD 04/09/2025 Abstract [facility] [address] [place] [address] Jack Vogt MD 04/09/2025 Abstract [facility] [address] [place] [address] Jack Vogt MD 04/09/2025 Abstract [facility] [address] [place] [address] Jack Vogt MD 04/08/2025 Telephone [facility] [address] [place] [address] Jack Vogt MD [facility] 04/08/2025 Abstract [facility] [address] [place] [address] Jack Vogt MD 04/07/2025 Telephone [facility] [address] [place] [address] Jack Vogt MD 04/04/2025 Telephone [facility] [address] [place] [address] Wanda Vásquez PA 04/03/2025 Telephone [facility] [address] [place] [address] Jack Vogt MD 04/02/2025 2:00 PM EDT Office Visit [facility] [address] [place] [address] 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, PAINTER DECORATOR Benign essential hypertension (Primary Dx); Chronic kidney disease, stage 4 (severe) (HCC); Localized edema; Right flank pain; Routine lab draw 03/31/2025 Telephone [facility] [address] [place] [address] Jack Vogt MD 03/31/2025 [facility] [address] [facility] [address] [place] [address] Summer Feliciano LPN Benign essential hypertension ; Atherosclerosis of [place] coronary artery of [place] heart with stable angina pectoris ; Depressive disorder 03/26/2025 Telephone [facility] [address] [facility] [address] [place] [address] Jack Vogt MD 03/25/2025 [facility] [address] [facility] [address] [place] [address] Summer Feliciano LPN Benign essential hypertension ; Gastroesophageal reflux disease, unspecified whether esophagitis present; Insomnia due to medical condition 03/24/2025 4:30 PM EDT [facility] [address] [facility] [address] [place] [address] Jack Vogt MD Atherosclerosis of [place] coronary artery of [place] heart with stable angina pectoris (Primary Dx); Type 2 diabetes mellitus with stage 4 chronic kidney disease, without long-term current use of insulin (HCC); Insomnia due to medical condition; Chronic kidney disease, stage 4 (severe) (HCC); Primary osteoarthritis of both knees 03/24/2025 Travel 03/20/2025 [facility] [address] [facility] [address] [place] [address] Renetta Burton, PAINTER DECORATOR Depressive disorder from Last 3 Months Immunizations Immunization Administration [...] Pulse 57 06/09/2025 11:14 AM EDT Temperature 36.4 C (97.5 F) 04/02/2025 2:31 PM EDT Respiratory Rate 16 02/25/2025 11:40 AM EDT Oxygen Saturation 98% 06/09/2025 11:14 AM EDT Inhaled Oxygen Concentration - - Weight 58.5 kg (129 lb) 06/09/2025 11:14 AM EDT Height 157.5 cm (5' 2 ) 06/09/2025 11:14 AM EDT Body Mass Index 23.59 06/09/2025 11:14 AM EDT Plan of Treatment Upcoming Encounters Date Type Department Care Team (Late st Contact Info) Description 06/23/2025 3:30 PM EDT Office Visit [facility] [address] [facility] [address] [place] [address] Jack Vogt MD 112 [facility] [address] [place] [address] Health Maintenance Due Date Last Done Comments CT Colonography 1949 FIT-DNA 1949 FIT 1949 FOBT 1950 Sigmoidoscopy 1949 Diabetes: Retinopathy Screening 11/18/2024 3, 11/17/2022 Diabetes: Urine Protein Screening 12/12/2024 12/13/2023, 10/09/2019, 09/28/2018 Diabetes: Hemoglobin A1C 03/14/2025 025, 03/20/2024, 12/13/2023, Additional history exists Influenza Vaccine (#1) 2025 2, 06/24/2021, 07/08/2020 Colonoscopy 03/17/2031 03/17/2021 Colorectal Cancer Screening 03/17/2031 Pneumococcal Vaccine: 65+ Years Discontinued 5 Mammogram Discontinued 02/05/2024, 01/17, 02/03/2023, Additional history exists Goals Goal Patient Goal Type Associated Problems Recent Progress Patient-Stated? Author Help patient manage antidepressant medication Care Plan Patient on antidepressant monitoring plan Renetta May NP Procedures Procedure Name Priority Date/Time Associated Diagnosis Comments URINALYSIS, COMPLETE W/REFLEX TO CULTURE Routine 04/02/2025 3:55 PM EDT Right flank pain COMPREHENSIVE METABOLIC PANEL Routine 04/02/2025 3:55 PM EDT Benign essential hypertension Chronic kidney disease, stage 4 (severe) (HCC) Localized edema CBC (INCLUDES DIFF/PLT) Routine 04/02/2025 3:55 PM EDT Benign essential hypertension Chronic kidney disease, stage 4 (severe) (HCC) Localized edema CULTURE, URINE, ROUTINE Routine 04/02/2025 3:55 PM EDT REFLEXIVE URINE CULTURE Routine 04/02/2025 3:55 PM EDT POCT GLYCATED HEMOGLOBIN, TOTAL Routine 12/12/2024 12:07 [...] Recently Relevant to Health Maintenance Results * REFLEXIVE URINE CULTURE (04/02/2025 3:55 PM EDT) REFLEXIVE URINE CULTURE [facility] Comment:CULTURE INDICATED - RESULTS TO FOLLOW 04/02/2025 3:55 PM EDT 04/02/2025 3:56 PM EDT Narrative Resulting Agency Comment Performing Organization Information Site ID: QPT Name: [facility] Address: [address] [place] [address], [address] [place] [phone] Director: Figueroa Jacques MD 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 NP LAB MICROBIOLOGY - GENERAL OR DERABLES Final Result Performing Organization Address [facility] de Phone Number [facility] * (ABNORMAL) URINALYSIS, COMPLETE W/REFLEX TO CULTURE (04/02/2025 3:55 PM EDT) COLOR YELLOW YELLOW [facility] APPEARANCE CLOUDY(A) CLEAR [facility] SPECIFIC GRAVITY 1.010 1.001 - 1.035 [facility] PH 5.5 5.0 - 8.0 [facility] GLUCOSE NEGATIVE NEGATIVE [facility] BILIRUBIN NEGATIVE NEGATIVE [facility] KETONES NEGATIVE NEGATIVE [facility] OCCULT BLOOD NEGATIVE NEGATIVE [facility] PROTEIN 3+(A) NEGATIVE [facility] NITRITE NEGATIVE NEGATIVE [facility] LEUKOCYTE ESTERASE TRACE(A) NEGATIVE [facility] WBC 0-5 < OR = 5 /HPF [facility] RBC NONE SEEN < OR = 2 /HPF [facility] SQUAMOUS EPITHELIAL CELLS 0-5 < OR = 5 /HPF [facility] BACTERIA NONE SEEN NONE SEEN /HPF [facility] HYALINE CAST 10-20(A) NONE SEEN /LPF [facility] NOTE [facility] Comment: This urine was analyzed for the presence of WBC, RBC, bacteria, casts, and other formed elements. Only those elements seen were reported. 04/02/2025 3:55 PM EDT 04/02/2025 3:56 PM EDT Narrative Resulting Agency Comment Performing Organization Information Site ID: QPT Name: [facility] Address: [address] [place] [address], [address] [place] [phone] Director: Figueroa Jacques MD us 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 NP LAB BODY FLUIDS AND STOOLS OR DERABLES Final Result Performing Organization Address [facility] de Phone Number [facility] * (ABNORMAL) CBC and differential (04/02/2025 3:55 PM EDT) Pathologist [facility] WHITE BLOOD CELL COUNT 3.9 3.8 - 10.8 Thousand/u L [facility] RED BLOOD CELL COUNT 2.94(L) 3.80 - 5.10 Million/uL [facility] HEMOGLOBIN 8.7(L) 11.7 - 15.5 g/dL [facility] HEMATOCRIT 27.4(L) 35.0 - 45.0 % [facility] MCV 93.2 80.0 - 100.0 fL [facility] MCH 29.6 27.0 - 33.0 pg [facility] MCHC 31.8(L) 32.0 - 36.0 g/dL [facility] Comment: For adults, a slight decrease in the calculated MCHC value (in the range of 30 to 32 g/dL) is most likely not clinically significant; however, it should be interpreted with caution in correlation with other red cell parameters and the patient's clinical condition. RDW 15.8(H) 11.0 - 15.0 % [facility] PLATELET COUNT 188 140 - 400 Thousand/u L [facility] MPV 11.3 7.5 - 12.5 fL [facility] ABSOLUTE NEUTROPHILS 2,313 1,500 - 7,800 cells/uL [facility] ABSOLUTE LYMPHOCYTES 940 850 - 3,900 cells/uL [facility] ABSOLUTE MONOCYTES 507 200 - 950 cells/uL [facility] ABSOLUTE EOSINOPHILS 121 15 - 500 cells/uL [facility] ABSOLUTE BASOPHILS 20 0 - 200 cells/uL [facility] NEUTROPHILS 59.3 % [facility] LYMPHOCYTES 24.1 % [facility] MONOCYTES 13.0 % [facility] EOSINOPHILS 3.1 % [facility] BASOPHILS 0.5 % [facility] Blood Venous blood specimen / Unknown 04/02/2025 3:55 PM EDT 04/02/2025 3:56 PM EDT Narrative Resulting Agency Comment Performing Organization Information Site ID: QPT Name: [facility] Address: [address] [place] [address], [address] [place] [phone] Director: Figueroa Jacques MD us 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 NP LAB BLOOD ORDERABLES Final Re sult [facility] * Urine culture (04/02/2025 3:55 PM EDT) Pathologist [facility] MICRO NUMBER [id number] [facility] SPECIMEN QUALITY Adequate [facility] SOURCE: ([facility]) URINE [facility] STATUS FINAL [facility] RESULT SEE NOTE [facility] Comment: Less than 10,000 CFU/mL of single Gram positive organism isolated. No further testing will be performed. If clinically indicated, recollection using a method to minimize contamination, with prompt transfer to Urine Culture Transport Tube, is recommended. 04/02/2025 3:55 PM EDT 04/02/2025 3:56 PM EDT Narrative Resulting Agency Comment Performing Organization Information Site ID: QPT Name: [facility] Address: [address] [place] [address], [address] [place] [phone] Director: Figueroa Jacques MD us 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 NP LAB MICROBIOLOGY - GENERAL OR DERABLES Final Result [facility] * (ABNORMAL) Comprehensive metabolic panel (04/02/2025 3:55 PM EDT) Pathologist [facility] Glucose 96 65 - 99 mg/dL [facility] Comment: Fasting reference interval BUN 69(H) 7 - 25 mg/dL [facility] Creatinine 4.59(H) 0.60 - 1.00 mg/dL [facility] EGFR 9(L) > OR = 60 mL/min/1.7 3m2 [facility] BUN/CREATININE RATIO 15 6 - 22 (calc) [facility] Sodium 136 135 - 146 mmol/L [facility] Potassium, Bld 3.8 3.5 - 5.3 mmol/L [facility] Chloride 98 98 - 110 mmol/L [facility] Carbon Dioxide 25 20 - 32 mmol/L [facility] Calcium 8.8 8.6 - 10.4 mg/dL [facility] PROTEIN, TOTAL 6.1 6.1 - 8.1 g/dL [facility] ALBUMIN 3.6 3.6 - 5.1 g/dL [facility] GLOBULIN 2.5 1.9 - 3.7 g/dL (calc) [facility] ALBUMIN/GLOBULIN RATIO 1.4 1.0 - 2.5 (calc) [facility] BILIRUBIN, TOTAL 0.6 0.2 - 1.2 mg/dL [facility] ALKALINE PHOSPHATASE 37 37 - 153 U/L [facility] AST 15 10 - 35 U/L [facility] ALT 5(L) 6 - 29 U/L [facility] Blood Venous blood specimen / Unknown 04/02/2025 3:55 PM EDT 04/02/2025 3:56 PM EDT Narrative Resulting Agency Comment Performing Organization Information Site ID: QPT Name: [facility] Address: [address] , [address] [place] [address] Director: Figueroa Jacques MD us 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 NP LAB BLOOD ORDERABLES Final Re sult [facility] * POCT Glycated hemoglobin, total (12/12/2024 12:07 PM EDT) Hemoglobin A1C 5.0 Blood 12/12/2024 12:0 7 PM EDT Jack Vogt MD POINT OF CARE TEST ENTER/EDIT ORDERABLES Final Result * MAMMOGRAM* (02/05/2024 1:10 PM EDT) Anatomical Region Laterality Modality Radiographic Ruma ging us [facility] Provider Unallocated IMG XR PROCEDURES F inal Result * [...] Performing Organization Information Site ID: QPT Name: [facility] Address: [address] , [address] [place] [address] Director: Figueroa Jacques MD us Jack Vogt MD LAB URINE ORDERABLES Final Res ult [facility] * Color Fundus Photography - OU - Both Eyes (11/18/2022 12:00 PM EST) Anatomical Region Laterality Modality Head Fundus Photograp hy 11/18/2022 12:0 0 PM EST Narrative 11/18/2022 12:00 PM EST PERFORMED AT [facility] LOCATION:[id number] [facility] Procedure Note CONVERSION, GENERIC - 02/02/2023 PERFORMED AT [facility] LOCATION:[id number] [facility] us Jack Vogt MD OPHTH PHOTOGRAPHY Final Result * Colonoscopy (03/17/2021 12:00 PM EDT) Anatomical Region Laterality Modality Endoscopy 03/17/2021 12:0 0 PM EDT Narrative 03/17/2021 12:00 PM EDT PERFORMED AT [facility] LOCATION:[id number] polyp- Procedure Note CONVERSION, GENERIC - 02/01/2023 PERFORMED AT [facility] LOCATION:[id number] polyp- us Jack Vogt MD ENDOSCOPY PROCEDURE ORDERABLES Final Result from Last 3 Months or Most Recently Relevant to Health Maintenance Additional Health Concerns Active Problems Noted Date Diagnosed Date Patient on antidepressant monitoring plan 2024 Insurance [employer] MED[employer]ARE Care Teams Merchandise Processor Relationship Specialty Start Date End Date Jack Vogt MD [address] [place] [address] PCP - General Internal Medicine 01/24/23
--- OUTSIDE RECORDS SUMMARY | 2025-06-09 12:33 | XMS_ITS | Encounter Summary ---
Author Organization [facility] Address [address] [place] [address] Care Team Providers Care Thrill Performer Name Role Phone Jack Vogt MD Primary Care Provider [phone] Encounter Details Date Type Department Care Team (Latest Contact Info) Description 06/09/2025 Travel Social History Tobacco Use Types Packs/Day Years [...] Description 06/23/2025 3:30 PM EDT Office Visit [facility] [address] [facility] [address] [place] [address] Jack Vogt MD [address] [facility] [address] [place] [address] documented as of this encounter Goals Goal Patient Goal Type Associated Problems Recent Progress Patient-Stated? Author Help patient manage antidepressant medication Care Plan Patient on antidepressant monitoring plan Renetta May LABORATORY ASSOCIATE documented as of this encounter Visit Diagnoses Not on filedocumented in this encounter Additional Health Concerns Active Problems Noted Date Diagnosed Date Patient on antidepressant monitoring plan 2024 Assessment Noted Time PHQ-9 Depression Total Score: 15 025 11:31 AM EDT documented as of this encounter Care Teams Thrill Performer Relationship Specialty Start Date End Date Jack Vogt MD [address] [address] PCP - General Internal Medicine 01/24/23 documented as of this encounter
--- OUTSIDE RECORDS SUMMARY | 2025-06-09 12:33 | XMS_ITS | Encounter Summary ---
Author Organization [facility] Address [address] [facility] [place] [address] Care Team Providers Care Head Of Design Name Role Phone Jack Vogt MD Primary Care Provider [phone] Encounter Details Date Type Department Care Team (Late Contact Info) Description 04/09/2025 Abstract [facility] [address] [facility] [address] [place] [address] Jack Vogt MD [address] [facility] [address] [place] [address] Social History Tobacco Use Types Packs/Day Years [...] Visit [facility] [place] [address] [facility] [address] [place] [address] Jack Vogt MD [address] [facility] [address] [place] [address] documented as of this encounter Goals Goal Patient Goal Type Associated Problems Recent Progress Patient-Stated? Author Help patient manage antidepressant medication Care Plan Patient on antidepressant monitoring plan No Renetta Burton, CABLE SPLICER APPRENTICE documented as of this encounter Visit Diagnoses Not on filedocumented in this encounter Additional Health Concerns Active Problems Noted Date Diagnosed Date Patient on antidepressant monitoring plan 2024 Assessment Noted Time PHQ-9 Depression Total Score: 15 025 11:31 AM EDT documented as of this encounter Care Teams Head Of Design Relationship Specialty Start Date End Date Jack Vogt MD [address] [place] [address] PCP - General Internal Medicine 01/24/23 documented as of this encounter
--- OUTSIDE RECORDS SUMMARY | 2025-06-09 12:33 | XMS_ITS | Encounter Summary ---
Author Organization [facility] Address [address] [place] [address] Care Team Providers Care Senior Clinical Research Scientist Name Role Phone Jack Vogt MD Primary Care Provider [phone] Encounter Details Date Type Department Care Team (Late Contact Info) Description 06/09/2025 Bamboo flowsheet [facility] Bill Wheeler [address] [facility] 110 [place] [address] Jack Vogt MD [address] [facility] 110 [place] [address] Social History Tobacco Use Types Packs/Day Years [...] Visit [facility] Bill [facility] [address] [facility] 110 [place] [address] Jack Vogt MD [address] [facility] 110 [place], [place] [address] documented as of this encounter Goals Goal Patient Goal Type Associated Problems Recent Progress Patient-Stated? Author Help patient manage antidepressant medication Care Plan Patient on antidepressant monitoring plan No Renetta Burton NP documented as of this encounter Visit Diagnoses Not on filedocumented in this encounter Additional Health Concerns Active Problems Noted Date Diagnosed Date Patient on antidepressant monitoring plan 2024 Assessment Noted Time PHQ-9 Depression Total Score: 15 025 11:31 AM EDT documented as of this encounter Care Teams Senior Clinical Research Scientist Relationship Specialty Start Date End Date Jack Vogt MD 112 [place] [address] PCP - General Internal Medicine 01/24/23 documented as of this encounter
--- OUTSIDE RECORDS SUMMARY | 2025-06-09 12:33 | XMS_ITS | Encounter Summary ---
Author Organization [facility] Address [address] [facility] [place] [address] Care Team Providers Care Tool Operator Name Role Phone Jack Vogt MD Primary Care Provider [phone] Encounter Details Date Type Department Care Team (Late Contact Info) Description 05/13/2025 Abstract [facility] Bill Wheeler [address] [facility] 110 [place] [address] Jack Vogt MD [address] [facility] 110 [place] [address] Social History Tobacco Use Types Packs/Day Years [...] Visit [facility] Bill Wheelere [address] [facility] 110 [place] [address] Jack Vogt MD [address] [facility] 110 [place] [address] documented as of this encounter Goals Goal Patient Goal Type Associated Problems Recent Progress Patient-Stated? Author Help patient manage antidepressant medication Care Plan Patient on antidepressant monitoring plan No Renetta Burton, COLLISION TECHNICIAN documented as of this encounter Visit Diagnoses Not on filedocumented in this encounter Additional Health Concerns Active Problems Noted Date Diagnosed Date Patient on antidepressant monitoring plan 2024 Assessment Noted Time PHQ-9 Depression Total Score: 15 025 11:31 AM EDT documented as of this encounter Care Teams Tool Operator Relationship Specialty Start Date End Date Jack Vogt MD 112 [place] [address] PCP - General Internal Medicine 01/24/23 documented as of this encounter
--- OUTSIDE RECORDS SUMMARY | 2025-06-09 12:33 | XMS_ITS | Encounter Summary ---
Author Organization [facility] Address [address] [place] [address] Care Team Providers Care Ems Coordinator Name Role Phone Jack Simpson MD Primary Care Provider [phone] Reason for Visit * Reason Onset Date Comments call with options 06/09/2025 Encounter Details Date Type Department Care Team ([facility] Contact Info) Description 06/09/[address] [facility] [address] [facility] 110 [place] [address] Jack Simpson MD [address] [facility] 110 [place], [place] [id number] call with options Social History Tobacco Use Types Packs/Day Years [...] encounter Miscellaneous Notes * Telephone Encounter - Summer Feliciano LPN - 06/09/2025 12:21 PM EDT Pt was in office today and trying to figure out options about what is available as far as in home care vs going to a correction dr simpson explained it as best he could but was wondering if there wasanyway to call her and explain the difference and requirements etc. documented in this encounter Plan of Treatment Upcoming Encounters Date Type Department Care Team (Late st Contact Info) Description 06/23/2025 3:30 PM EDT Office Visit [facility] Bill Farooq [address] [facility] 110 [place] [address] Jack Simpson MD [address] [facility] 110 [place] [address] documented as of this encounter Goals Goal Patient Goal Type Associated Problems Recent Progress Patient-Stated? Author Help patient manage antidepressant medication Care Plan Patient on antidepressant monitoring plan No Renetta Burton TRAVEL DIRECTOR documented as of this encounter Visit Diagnoses Not on filedocumented in this encounter Additional Health Concerns Active Problems Noted Date Diagnosed Date Patient on antidepressant monitoring plan 2024 Assessment Noted Time PHQ-9 Depression Total Score: 15 025 11:31 AM EDT documented as of this encounter Care Teams Ems Coordinator Relationship Specialty Start Date End Date Jack Simpson MD [address] [facility] 110 [place] [address] PCP - General Internal Medicine 01/24/23 documented as of this encounter
--- OUTSIDE RECORDS SUMMARY | 2025-06-09 12:33 | XMS_ITS | Encounter Summary ---
Author Organization [facility] Address [address] [place] [address] Care Team Providers Care Application Security Developer Name Role Phone Jack Vogt MD Primary Care Provider [phone] Encounter Details Date Type Department Care Team [...] 3:30 PM EDT Office Visit [facility] 112 [facility] 110 [place] [address] Jack Vogt MD 112 [facility] 110 [place], [place] [address] documented as of this encounter Procedures Procedure Name Priority Date/Time Associated Diagnosis Comments MR ABDOMEN W AND WO CONTRAST 09/20/2024 5:13 PM EST documented in this encounter Results * MR abdomen w and wo contrast (09/20/2024 5:13 PM EST) Anatomical Region Laterality Modality Abdomen Magnetic Resonan ce 09/20/2024 5:13 PM EST Narrative 09/20/2024 5:15 PM EST [address] [address] Magnetic Resonance Report Signed Patient: LUPE NGUYEN MR#: [id number] : 1950 Acct:[id number] Age/Sex: 73 / F ADM Date: 09/13/24 Loc: LAB Attending Dr: Alfredo Cardenas M.D. Ordering Physician: Alfredo Cardenas M.D. Date of Service: 09/13/24 Procedure(s): MR abdomen wo/w con Accession Number(s): [id number] cc: JACK VOGT ; Alfredo Cardenas M.D. [address] [address] Patient Name: LUPE NGUYEN MRN: [id number] date: 1950 Sex: F Assigned Patient Location: LAB Current Patient Location: LAB Accession/Order Number: [id number] Exam Date: 09/13/2024 13:35 Report Date: 09/20/2024 [...] Dictated By: Chirag Esquivel M.D. Signed By: 09/20/24 1715 DD/ 1713 TD/TT: Maitre D: Procedure Note Radiology, Radiologist, MD - 09/20/2024 [facility] [place] [id number] Magnetic Resonance Report Signed Patient: LUPE NGUYEN LMR#: [id number] : 1950Acct:[id number] Age/Sex: 73 / FADM Date: 09/13/24 Loc: LAB Attending Dr: Alfredo Cardenas M.D. Ordering Physician: Alfredo Cardenas M.D. Date of Service: 09/13/24 Procedure(s): MR abdomen wo/w con Accession Number(s): [id number] cc: JACK VOGT ; Alfredo Cardenas M.D. [place] [id number] Patient Name: LUPE NGUYEN MRN: [facility]:[id number] date: 1950 Sex: F Assigned Patient Location: LAB Current Patient Location: LAB Accession/Order Number: [id number] Exam Date: 09/13/2024 13:35 Report Date: 09/20/2024 [...] T2 images were obtained. Axial and coronal [id number] images were obtained in the nephrographic phase. [...] 17:13 Dictated By: Chirag Esquivel M.D. Signed By:09/20/245 DD/ 12 TD/TT: Maitre D: us Generic External Data Provider IMG MRI PROCEDURE S Final Result documented in this encounter Visit Diagnoses Not on filedocumented in this encounter Care Teams Application Security Developer Relationship Specialty Start Date End Date Jack Vogt MD 112 [facility] 110 [place] [address] PCP - General Internal Medicine 01/24/23 documented as of this encounter
--- OUTSIDE RECORDS SUMMARY | 2025-06-09 12:33 | XMS_ITS | Encounter Summary ---
Author Organization [facility] Address [address] [facility] [place] [address] Care Team Providers Care Cutter Grinder Operator Name Role Phone Jack Vogt MD Primary Care Provider [phone] Encounter Details Date Type Department Care Team ([facility] Contact Info) Description 08/21/2023 Abstract [facility] 112 [facility] 110 [place] [address] Jack Vogt MD [address] [facility] 110 [place] [address] Social History Tobacco Use Types Packs/Day Years [...] Upcoming Encounters Date Type Department Care Team ([facility] Contact Info) Description 06/23/2025 3:30 PM EDT Office [facility] 112 [facility] 110 [place] [address] Jack Vogt MD 112 [facility] 110 [place], [place] [address] documented as of this encounter Visit Diagnoses Not on filedocumented in this encounter Care Teams Cutter Grinder Operator Relationship Specialty Start Date End Date Jack Vogt MD 112 [facility] 110 [place] [address] PCP - General Internal Medicine 01/24/23 documented as of this encounter
--- OUTSIDE RECORDS SUMMARY | 2025-06-09 12:33 | XMS_ITS | Encounter Summary ---
Author Organization [facility] Address [address] [place] [address] Phone Care Team Providers Care Sap Gatherer Name Role Phone Unavailable Primary Care Provider Unavailabl e Encounter Details Date Type Department Care Team (Late st Contact Info) Description 04/08/2025 Scanned Document [facility] [address] [place] [address] Scanning, Generic Provider Social History Tobacco Use Types Packs/Day Years Used Date Smoking Tobacco: Never Assessed Comments Unknown Sex and Gender Information Value Date Recorded Sex Assigned at Not on file Legal Sex Female 6:07 AM EST Gender Identity Not on file Sexual Orientation Not on file documented as of this encounter Plan of Treatment Not on file documented as of this encounter Procedures Procedure Name Priority Date/Time Associated Diagnosis Comments ECHOCARDIOGRAM 04/08/2025 documented in this encounter Results * Echocardiogram (04/08/2025) Narrative 04/08/2025 Ordered by an unspecified provider. us Generic Provider Scanning CV ECHO PROCEDURES Fin al Result documented in this encounter Visit Diagnoses Not on filedocumented in this encounter
--- OUTSIDE RECORDS SUMMARY | 2025-06-09 12:33 | XMS_ITS | Encounter Summary ---
Author Organization [facility] Address [address] [facility] [place] [address] Care Team Providers Care Senior Engineer Name Role Phone Jack Vogt MD Primary Care Provider [phone] Encounter Details Date Type Department Care Team (Late Contact Info) Description 04/24/2025 Abstract [facility] Bill Wheeler [address] [facility] 110 [place] [address] Jack Vogt MD [address] [facility] 110 [place] [address] Social History Tobacco Use Types Packs/Day Years [...] Visit [facility] Bill Osunance [address] [facility] 110 [place] [address] Jack Vogt MD [address] [facility] 110 [place] [address] documented as of this encounter Goals Goal Patient Goal Type Associated Problems Recent Progress Patient-Stated? Author Help patient manage antidepressant medication Care Plan Patient on antidepressant monitoring plan No Renetta Burton, LEGAL ADMINISTRATIVE SECRETARY documented as of this encounter Visit Diagnoses Not on filedocumented in this encounter Additional Health Concerns Active Problems Noted Date Diagnosed Date Patient on antidepressant monitoring plan 2024 Assessment Noted Time PHQ-9 Depression Total Score: 15 025 11:31 AM EDT documented as of this encounter Care Teams Senior Engineer Relationship Specialty Start Date End Date Jack Vogt MD 112 [place] [address] PCP - General Internal Medicine 01/24/23 documented as of this encounter
--- OUTSIDE RECORDS SUMMARY | 2025-06-09 12:33 | XMS_ITS | Encounter Summary ---
Author Organization [facility] Address [address] [facility] [place] [address] Care Team Providers Care Bid Writer Name Role Phone Jack Vogt MD Primary Care Provider [phone] Encounter Details Date Type Department Care Team (Late Contact Info) Description 04/08/2025 Abstract [facility] Bill Wheeler [address] [facility] 110 [place] [address] Jack Vogt MD [address] [facility] 110 [place] [address] Social History Tobacco Use Types Packs/Day Years [...] [facility] Bill Osunance [address] [facility] 110 [place] [address] Jack Vogt MD [address] [facility] 110 [place] [address] documented as of this encounter Goals Goal Patient Goal Type Associated Problems Recent Progress Patient-Stated? Author Help patient manage antidepressant medication Care Plan Patient on antidepressant monitoring plan No Renetta Burton, COMMUNICATION EQUIPMENT REPAIRER documented as of this encounter Visit Diagnoses Not on filedocumented in this encounter Additional Health Concerns Active Problems Noted Date Diagnosed Date Patient on antidepressant monitoring plan 2024 Assessment Noted Time PHQ-9 Depression Total Score: 15 025 11:31 AM EDT documented as of this encounter Care Teams Bid Writer Relationship Specialty Start Date End Date Jack Vogt MD 112 [place] [address] PCP - General Internal Medicine 01/24/23 documented as of this encounter
--- OUTSIDE RECORDS SUMMARY | 2025-06-09 12:33 | XMS_ITS | Encounter Summary ---
Author Organization [facility] Address [address] [facility] [place] [address] Care Team Providers Care Slot Router Name Role Phone Jack Vogt MD Primary Care Provider [phone] Encounter Details Date Type Department Care Team (Late st Contact Info) Description 12/12/2024 Abstract [facility] Bill [facility] [address] [facility] 110 [place] [address] Jack Vogt MD [address] [facility] 110 [place] [address] Social History Tobacco Use Types Packs/Day Years Used Date Smoking Tobacco: Never Smokeless Tobacco: Never Alcohol Use Standard Drinks/Week Comments Not Asked 0 (1 standard drink = 0.6 oz pur e alcohol) caffeine yes type:coffee PHQ-2 Answer Date Recorded Patient Health Questionnaire-2 Score 0 12/12/2024 Comments Unknown Sex and Gender Information Value Date Recorded Sex Assigned at Not on file Legal Sex Female 6:57 PM EDT Gender Identity Not on file Sexual Orientation Not on file documented as of this encounter Functional Status * Over the past 2 weeks, how often have you been bothered by any of the following problems? Question Answer Date of Assessment Author Little interest or pleasure in doing things Not at all 12/12/2024 11:00 AM EDSummer Askew L PN Feeling down, depressed, or hopeless Not at all 12/12/2024 11:00 AM EDT Summer Feliciano L PN Patient Health Questionnaire -2 Score 0 12/12/2024 11:00 AM EDT Summer Feliciano L PN documented as of this encounter Plan of Treatment Upcoming Encounters Date Type Department Care Team (Late st Contact Info) Description 06/23/2025 3:30 PM EDT Office Visit [facility] Bill Farooq [address] [facility] 110 [place] [address] Jack Vogt MD [address] [facility] 110 [place] [address] documented as of this encounter Visit Diagnoses Not on filedocumented in this encounter Care Teams Slot Router Relationship Specialty Start Date End Date Jack Vogt MD [address] [facility] 110 [place] [address] PCP - General Internal Medicine 01/24/23 documented as of this encounter
--- OUTSIDE RECORDS SUMMARY | 2025-06-09 12:33 | XMS_ITS | Encounter Summary ---
Author Organization [facility] Address [address] [facility] [place] [address] Care Team Providers Care Log Brander Name Role Phone Jack Vogt MD Primary Care Provider [phone] Encounter Details Date Type Department Care Team ([facility] Contact Info) Description 09/20/2023 Abstract [facility] Bill Wheleer 112 [facility] 110 [place] [address] Jack Vogt MD [address] [facility] 110 [place] [address] Social History Tobacco Use Types Packs/Day Years [...] Upcoming Encounters Date Type Department Care Team ([facility] Contact Info) Description 06/23/2025 3:30 PM EDT Office [facility] 112 [facility] 110 [place] [address] Jack Vogt MD [address] [facility] 110 [place], [place] [address] documented as of this encounter Visit Diagnoses Not on filedocumented in this encounter Care Teams Log Brander Relationship Specialty Start Date End Date Jack Vogt MD 112 [facility] 110 [place] [address] PCP - General Internal Medicine 01/24/23 documented as of this encounter
--- OUTSIDE RECORDS SUMMARY | 2025-06-09 12:33 | XMS_ITS | Encounter Summary ---
Author Organization [facility] Address [address] [place] [address] Care Team Providers Care Electrical Maintenance Worker Name Role Phone Jack Vogt MD Primary Care Provider [phone] Encounter Details Date Type Department Care Team [...] 3:30 PM EDT Office Visit [facility] 112 [facility] 110 [place] [address] Jack Vogt MD 112 [facility] 110 [place] [address] documented as of this encounter Procedures Procedure Name Priority Date/Time Associated Diagnosis Comments US LEG LEFT VENOUS + DOPPLER 10/18/2023 4:32 PM EST documented in this encounter Results * US LEG LEFT VENOUS + DOPPLER (10/18/2023 4:32 PM EST) Anatomical Region Laterality Modality Radiographic Ruma ging 10/18/2023 4:32 PM EST Narrative 10/18/2023 4:35 PM EST [address] [address] Ultrasound Report Signed Patient: LUPE NGUYEN MR#: [id number] : 1950 Acct:[id number] Age/Sex: 72 / F ADM Date: 10/18/23 Loc: US Attending Dr: SACHIN MATTHEWS Ordering Physician: SACHIN MATTHEWS Date of Service: 10/18/23 Procedure(s): US venous doppler LE BI Accession Number(s): [id number] cc: JACK VOGT ; SACHIN MATTHEWS [place] [address] Patient Name: LUPE NGUYEN MRN: [id number] date: 1950 Sex: F Assigned Patient Location: US Current Patient Location: US Accession/Order Number: [id number] Exam Date: 10/18/2023 15:08 Report Date: 10/18/2023 [...] By: Henry Parker M.D. Signed By: 10/18/23 1635 DD/ 163 TD/TT: Sensitizer: Procedure Note Radiology, Radiologist, MD - 10/18/2023 [place] [address] Ultrasound Report Signed Patient: LUPE NGUYEN LMR#: [id number] : 1950Acct:[id number] Age/Sex: 72 / FADM Date: 10/18/23 Loc: US Attending Dr: SACHIN MATTHEWS Ordering Physician: SACHIN MATTHEWS Date of Service: 10/18/23 Procedure(s): US venous doppler LE BI Accession Number(s): [id number] cc: JACK VOGT ; SACHIN MATTHEWS [place] [address] Patient Name: LUPE NGUYEN MRN: [id number] date: 1950 Sex: F Assigned Patient Location: US Current Patient Location: US Accession/Order Number: [id number] Exam Date: 10/18/2023 15:08 Report Date: 10/18/2023 [...] 16:32 Dictated By: Henry Parker M.D. Signed By:10/18/237 DD/ 163 TD/TT: Sensitizer: us Generic External Data Provider IMG XR PROCEDURES Final Result documented in this encounter Visit Diagnoses Not on filedocumented in this encounter Care Teams Electrical Maintenance Worker Relationship Specialty Start Date End Date Jack Vogt MD [address] [address] PCP - General Internal Medicine 01/24/23 documented as of this encounter
--- OUTSIDE RECORDS SUMMARY | 2025-06-09 12:33 | XMS_ITS | Encounter Summary ---
Author Organization [facility] Address [address] [facility] [place] [address] Care Team Providers Care Safety Spec Name Role Phone Jack Vogt MD Primary Care Provider [phone] Encounter Details Date Type Department Care Team (Late Contact Info) Description 05/12/2025 Abstract [facility] Bill Wheeler [address] [facility] 110 [place] [address] Jack Vogt MD [address] [facility] 110 [place] [address] Social History Tobacco Use Types Packs/Day Years [...] Visit NOMS Bill Wheelere [address] [facility] 110 [place] [address] Jack Vogt MD [address] [facility] 110 [place] [address] documented as of this encounter Goals Goal Patient Goal Type Associated Problems Recent Progress Patient-Stated? Author Help patient manage antidepressant medication Care Plan Patient on antidepressant monitoring plan No Renetta Burton, WATCH BAND ASSEMBLER documented as of this encounter Visit Diagnoses Not on filedocumented in this encounter Additional Health Concerns Active Problems Noted Date Diagnosed Date Patient on antidepressant monitoring plan 2024 Assessment Noted Time PHQ-9 Depression Total Score: 15 025 11:31 AM EDT documented as of this encounter Care Teams Safety Spec Relationship Specialty Start Date End Date Jack Vogt MD 112 [place] [address] PCP - General Internal Medicine 01/24/23 documented as of this encounter
--- OUTSIDE RECORDS SUMMARY | 2025-06-09 12:33 | XMS_ITS | Encounter Summary ---
Author Organization [facility] Address [address] [place] [address] Care Team Providers Care Fell Cutter Name Role Phone Jack Vogt MD Primary Care Provider [phone] Encounter Details Date Type Department Care Team (Late Contact Info) Description 05/21/2025 Abstract [facility] Bill Wheeler [address] [facility] 110 [place] [address] Jack Vogt MD [address] [facility] 110 [place] [address] Social History Tobacco Use Types Packs/Day Years [...] Visit NOMS Bill Osunance [address] [facility] 110 [place] [address] Jack Vogt MD [address] [facility] 110 [place] [address] documented as of this encounter Goals Goal Patient Goal Type Associated Problems Recent Progress Patient-Stated? Author Help patient manage antidepressant medication Care Plan Patient on antidepressant monitoring plan No Renetta Burton, ASSISTANT DIRECTOR OF FINANCIAL AID documented as of this encounter Visit Diagnoses Not on filedocumented in this encounter Additional Health Concerns Active Problems Noted Date Diagnosed Date Patient on antidepressant monitoring plan 2024 Assessment Noted Time PHQ-9 Depression Total Score: 15 025 11:31 AM EDT documented as of this encounter Care Teams Fell Cutter Relationship Specialty Start Date End Date Jack Vogt MD [address] [place] [address] PCP - General Internal Medicine 01/24/23 documented as of this encounter
--- OUTSIDE RECORDS SUMMARY | 2025-06-09 12:33 | XMS_ITS | Encounter Summary ---
Author Organization [facility] Address [address] [facility] [place] [address] Care Team Providers Care Nanosystems Engineer Name Role Phone Jack Vogt MD Primary Care Provider [phone] Encounter Details Date Type Department Care Team (Late Contact Info) Description 04/10/2025 Abstract [facility] Bill Wheeler [address] [facility] 110 [place] [address] Jack Vogt MD [address] [facility] 110 [place] [address] Social History Tobacco Use Types Packs/Day Years [...] [address] [facility] 110 [place] [address] Jack Vogt MD [address] [facility] 110 [place] [address] documented as of this encounter Goals Goal Patient Goal Type Associated Problems Recent Progress Patient-Stated? Author Help patient manage antidepressant medication Care Plan Patient on antidepressant monitoring plan No Renetta Burton, RICE FARMWORKER documented as of this encounter Visit Diagnoses Not on filedocumented in this encounter Additional Health Concerns Active Problems Noted Date Diagnosed Date Patient on antidepressant monitoring plan 2024 Assessment Noted Time PHQ-9 Depression Total Score: 15 025 11:31 AM EDT documented as of this encounter Care Teams Nanosystems Engineer Relationship Specialty Start Date End Date Jack Vogt MD 112 [place] [address] PCP - General Internal Medicine 01/24/23 documented as of this encounter
--- OUTSIDE RECORDS SUMMARY | 2025-06-09 12:33 | XMS_ITS | Clinical Summary ---
Author Organization [facility] Address [address] [place] [address] Care Team Providers Care Field Crop I Farmworker Name Role Phone Jack Viera Primary Care Provider [phone] Social History Tobacco Use Types Packs/Day Years Used Date Smoking Tobacco: Never Assessed Comments Unknown Sex and Gender Information Value Date Recorded Sex Assigned at Not on file Legal Sex Female 9:29 AM EST Gender Identity Not on file Sexual Orientation Not on file Plan of Treatment Not on file Care Teams Field Crop I Farmworker Relationship Specialty Start Date End Date Jack Viera [facility] [place] [address] PCP - General 12/28/00
--- OUTSIDE RECORDS SUMMARY | 2025-06-09 12:33 | XMS_ITS | Clinical Summary ---
Author Organization [facility] Address [address] [place] [address] Phone Care Team Providers Care Cell Room Supervisor Name Role Phone Unavailable Primary Care Provider Unavailabl e Encounters Date Type Department Care Team Description 04/08/2025 Scanned Document [facility] [address] [place] [address] Scanning, Generic Provider from Last 3 Months Social History Tobacco Use Types Packs/Day Years Used Date Smoking Tobacco: Never Assessed Comments Unknown Sex and Gender Information Value Date Recorded Sex Assigned at Not on file Legal Sex Female 6:07 AM EST Gender Identity Not on file Sexual Orientation Not on file Plan of Treatment Health Maintenance Due Date Last Done Comments CT Colonography 1950 Colonoscopy 1950 Colorectal Cancer Screening 1950 FIT-DNA (Cologuard) 1950 FIT 1950 Lipid Panel 1950 Sigmoidoscopy 1950 Welcome to Medicare Visit 1950 MMR Vaccines (1 of 1 - Stand rdaha series) 1950 Hepatitis C Screening 1967 DTaP/Tdap/Td Vaccines (1 - Tdap) 1971 Pneumococcal Vaccine (1 of 1 - PCV) 1999 Zoster Vaccines (1 of 2) 1999 Bone Density Scan 2014 RSV High Risk: (Elderly (60+ ) or Population) (1 - 1-dose 75+ series) 2024 COVID-19 Vaccine ( - 2023-2 5 season) 2025 Influenza Vaccine (#1) 2025 HIB Vaccines Aged Out No longer eligi ble based on patient's age to complete this topic HPV Vaccines Aged Out No longer eligi ble based on patient's age to complete this topic Hepatitis A Vaccines Aged Out No long er eligible based on patient's age to complete this topic Hepatitis B Vaccines Aged Out No long er eligible based on patient's age to complete this topic IPV Vaccines Aged Out No longer eligi ble based on patient's age to complete this topic Meningococcal Vaccine Aged Out No cathleen lore eligible based on patient's age to complete this topic Rotavirus Vaccines Aged Out No longer eligible based on patient's age to complete this topic Procedures Procedure Name Priority Date/Time Associated Diagnosis Comments ECHOCARDIOGRAM 04/08/2025 from Last 3 Months Results * Echocardiogram (04/08/2025) Narrative 04/08/2025 Ordered by an unspecified provider. us Generic Provider Scanning CV ECHO PROCEDURES Fin al Result from Last 3 Months Insurance [employer] MEDICARE
--- OUTSIDE RECORDS SUMMARY | 2025-06-09 12:33 | XMS_ITS | Encounter Summary ---
Author Organization [facility] Address [address] [facility] [place] [address] Care Team Providers Care Sales Coordinator Name Role Phone Jack Vogt MD Primary Care Provider [phone] Encounter Details Date Type Department Care Team (Late Contact Info) Description 10/19/2023 Orders Only [facility] [address] [facility] 110 [place] [address] A, Unknown Practice [address] [place], [place] [address] Social History Tobacco Use Types Packs/Day Years [...] 3:30 PM EDT Office Visit [facility] [address] [facility] 110 [place] [address] Jack Vogt MD [address] [facility] 110 [place] [address] documented as of this encounter [...] on filedocumented in this encounter Care Teams Sales Coordinator Relationship Specialty Start Date End Date Jack Vogt MD 112 [place] [address] PCP - General Internal Medicine 01/24/23 documented as of this encounter
--- OUTSIDE RECORDS SUMMARY | 2025-06-09 12:33 | XMS_ITS | Encounter Summary ---
Author Organization [facility] Address [address] [facility] [place] [address] Care Team Providers Care Dredge Or Barge Shore Hand Name Role Phone Jack Vogt MD Primary Care Provider [phone] Encounter Details Date Type Department Care Team (Late Contact Info) Description 04/09/2025 Abstract [facility] Bill Wheeler [address] [facility] 110 [place] [address] Jack Vogt MD [address] [facility] 110 [place] [address] Social History Tobacco Use Types Packs/Day Years [...] Visit [facility]S Bill Osunance [address] [facility] 110 [place] [address] Jack Vogt MD [address] [facility] 110 [place] [address] documented as of this encounter Goals Goal Patient Goal Type Associated Problems Recent Progress Patient-Stated? Author Help patient manage antidepressant medication Care Plan Patient on antidepressant monitoring plan No Renetta Burton, PROGRAM MANAGER SLP documented as of this encounter Visit Diagnoses Not on filedocumented in this encounter Additional Health Concerns Active Problems Noted Date Diagnosed Date Patient on antidepressant monitoring plan 2024 Assessment Noted Time PHQ-9 Depression Total Score: 15 025 11:31 AM EDT documented as of this encounter Care Teams Dredge Or Barge Shore Hand Relationship Specialty Start Date End Date Jack Vogt MD 112 [place] [address] PCP - General Internal Medicine 01/24/23 documented as of this encounter
--- OUTSIDE RECORDS SUMMARY | 2025-06-09 12:33 | XMS_ITS | Encounter Summary ---
Author Organization [facility] Address [address] [facility] [place] [address] Care Team Providers Care Crowning Inspector Name Role Phone Jack Vogt MD Primary Care Provider [phone] Encounter Details Date Type Department Care Team ([facility] Contact Info) Description 11/27/2023 Abstract [facility] 112 [facility] 110 [place] [address] Jack Vogt MD [address] [facility] 110 [place] [address] Social History Tobacco Use Types Packs/Day Years [...] Encounters Date Type Department Care Team ([facility] Contact Info) Description 06/23/2025 3:30 PM EDT Office Visit [facility] 112 [facility] 110 [place] [address] Jack Vogt MD [address] [facility] 110 [place], [place] [address] documented as of this encounter Visit Diagnoses Not on filedocumented in this encounter Care Teams Crowning Inspector Relationship Specialty Start Date End Date Jack Vogt MD 112 [facility] 110 [place] [address] PCP - General Internal Medicine 01/24/23 documented as of this encounter
--- OUTSIDE RECORDS SUMMARY | 2025-06-09 12:33 | XMS_ITS | Encounter Summary ---
Author Organization [facility] Address [address] [facility] [place] [address] Care Team Providers Care Garbage Pick Up Worker Name Role Phone Jack Vogt MD Primary Care Provider [phone] Encounter Details Date Type Department Care Team (Late Contact Info) Description 12/28/2023 Abstract [facility] Bill Farooq [address] [facility] 110 [place] [address] Jack Vogt MD [address] [facility] 110 [place] [address] Social History Tobacco Use Types Packs/Day Years [...] Visit [facility]S Bill Farooq [address] [facility] 110 [place] [address] Jack Vogt MD [address] [facility] 110 [place] [address] documented as of this encounter Visit Diagnoses Not on filedocumented in this encounter Care Teams Garbage Pick Up Worker Relationship Specialty Start Date End Date Jack Vogt MD [address] [place] [facility] 110 [place] [id number] PCP - General Internal Medicine 01/24/23 documented as of this encounter
--- OUTSIDE RECORDS SUMMARY | 2025-06-09 12:33 | XMS_ITS | Encounter Summary ---
Author Organization [facility] Address [address] [place] [address] Care Team Providers Care School Aide Name Role Phone Jack Vogt MD Primary Care Provider [phone] Encounter Details Date Type Department Care Team [...] Upcoming Encounters Date Type Department Care Team ([facility] Contact Info) Description 06/23/2025 3:30 PM EDT Office Visit [facility] 112 [facility] 110 [place] [address] Jack Vogt MD 112 [facility] 110 [place] [address] documented as of this encounter Procedures Procedure Name Priority Date/Time Associated Diagnosis Comments MR ABDOMEN W AND WO CONTRAST 07/25/2023 3:55 PM EST documented in this encounter Results * MR abdomen w and wo contrast (07/25/2023 3:55 PM EST) Anatomical Region Laterality Modality Abdomen Magnetic Resonan ce 07/25/2023 3:55 PM EST Narrative 07/25/2023 3:55 PM EST [address] [address] Magnetic Resonance Report Signed Patient: Lupe Nguyen MR#: [id number] : 1950 Acct:[id number] Age/Sex: 72 / F ADM Date: 07/24/23 Loc: LAB Attending Dr: Alfredo Cardenas M.D. Ordering Physician: Alfredo Cardenas M.D. Date of Service: 07/24/23 Procedure(s): MR abdomen wo/w con Accession Number(s): [id number] cc: JACK VOGT ; Alfredo Cardenas M.D. [place] [id number] Patient Name: LUPE NGUYEN MRN: [id number] date: 1950 Sex: F Assigned Patient Location: LAB Current Patient Location: LAB Accession/Order Number: [id number] Exam Date: 07/24/2023 13:45 Report Date: 07/25/2023 [...] Signed By: 07/25/23 1557 DD/ 1555 TD/TT: Dimension Stone Quarry Supervisor: Procedure Note Radiology, Radiologist, - 07/26/2023 [place] [address] Magnetic Resonance Report Signed Patient: Lupe Nguyen LMR#: [id number] : 1950Acct:[id number] Age/Sex: 72 / FADM Date: 07/24/23 Loc: LAB Attending Dr: Alfredo Cardenas M.D. Ordering Physician: Alfredo Cardenas M.D. Date of Service: 07/24/23 Procedure(s): MR abdomen wo/w con Accession Number(s): [id number] cc: JACK VOGT ; Alfredo Cardenas M.D. [place] [address] Patient Name: LUPE NGUYEN MRN: [facility]:[id number] date: 1950 Sex: F Assigned Patient Location: LAB Current Patient Location: LAB Accession/Order Number: [id number] Exam Date: 07/24/2023 13:45 Report Date: 07/25/2023 [...] M.D. Signed By:07/25/23 1557 DD/ 1555 TD/TT: Dimension Stone Quarry Supervisor: us Generic External Data Provider IMG MRI PROCEDURE S Final Result documented in this encounter Visit Diagnoses Not on filedocumented in this encounter Care Teams School Aide Relationship Specialty Start Date End Date Jack Vogt MD 112 [place] [address] PCP - General Internal Medicine 01/24/23 documented as of this encounter
--- OUTSIDE RECORDS SUMMARY | 2025-06-09 12:33 | XMS_ITS | Encounter Summary ---
Author Organization [facility] Address [address] [facility] [place] [address] Care Team Providers Care Crop Quantitative Geneticist Name Role Phone Jack Vogt MD Primary Care Provider [phone] Encounter Details Date Type Department Care Team (Late Contact Info) Description 02/26/2025 Abstract [facility] Bill Wheeler [address] [facility] 110 [place] [address] Jack Vogt MD [address] [facility] 110 [place] [address] Social History Tobacco Use Types Packs/Day Years [...] Visit [facility]S Bill Osunance [address] [facility] 110 [place] [address] Jack Vogt MD [address] [facility] 110 [place] [address] documented as of this encounter Goals Goal Patient Goal Type Associated Problems Recent Progress Patient-Stated? Author Help patient manage antidepressant medication Care Plan Patient on antidepressant monitoring plan No Renetta Burton, ORDNANCE ARTIFICER documented as of this encounter Visit Diagnoses Not on filedocumented in this encounter Additional Health Concerns Active Problems Noted Date Diagnosed Date Patient on antidepressant monitoring plan 2024 Assessment Noted Time PHQ-9 Depression Total Score: 15 025 11:31 AM EDT documented as of this encounter Care Teams Crop Quantitative Geneticist Relationship Specialty Start Date End Date Jack Votg MD 112 [place] [address] PCP - General Internal Medicine 01/24/23 documented as of this encounter
--- OUTSIDE RECORDS SUMMARY | 2025-06-09 12:33 | XMS_ITS | Encounter Summary ---
Author Organization [facility] Address [address] [place] [address] Care Team Providers Care Glass Vial Filler Name Role Phone Jack Vogt MD Primary Care Provider [phone] Encounter Details Date Type Department Care Team [...] 3:30 PM EDT [facility] 112 [facility] 110 [place] [address] Jack Vogt MD 112 [facility] 110 [place] [address] documented as of this encounter Procedures Procedure Name Priority Date/Time Associated Diagnosis Comments CA ECHO DOPPLER COMPLETE 08/18/2023 7:51 PM EST documented in this encounter Results * CA ECHO DOPPLER COMPLETE (08/18/2023 7:51 PM EST) Anatomical Region Laterality Modality Other 08/18/2023 7:51 PM EST Narrative 08/18/2023 7:51 [place] [address] Cardiology Report Signed Patient: LUPE NGUYEN MR#: [id number] : 1950 Acct:[id number] Age/Sex: 72 / F ADM Date: 08/17/23 Loc: CARD Attending Dr: SACHIN AGUILERA Ordering Physician: SACHIN AGUILERA Date of Service: 08/17/23 Procedure(s): CA echo doppler complete Accession Number(s): [id number] cc: Patient Name: LUPE NGUYEN MR#: [id number] : 1950 Exam Date: 08/17/2023 Ordering Doctor: [...] Color-flow Doppler indicates interatrial septal communication with hahu-vk-tdver shunting suggestive of possible small atrial septal [...] on 08/18/2023 at 19:51 Dictated By: SACHIN GAUILERA Signed By: 08/18/231951 DD/ 50 TD/TT: Card Grinder Helper: Procedure Note Radiology, Radiologist, MD - 08/18/2023 [place] [address] Cardiology Report Signed Patient: LUPE NGUYEN LMR#: [id number] : 1950Acct:[id number] Age/Sex: 72 / FADM Date: 08/17/23 Loc: CARD Attending Dr: SACHIN AGUILERA Ordering Physician: SACHIN AGUILERA Date of Service: 08/17/23 Procedure(s): CA echo doppler complete Accession Number(s): [id number] cc: Patient Name: LUPE NGUYEN MR#: [id number] : 1950 Exam Date: 08/17/2023 Ordering Doctor: [...] Color-flow Doppler indicates interatrial septal communication with ryps-rx-pbpsq shunting suggestive of possible small atrial septal [...] SACHIN AGUILERA Signed By:08/18/231951 DD/ 50 TD/TT: Card Grinder Helper: Generic External Data Provider [facility] Final Result documented in this encounter Visit Diagnoses Not on filedocumented in this encounter Care Teams Glass Vial Filler Relationship Specialty Start Date End Date Jack Vogt MD [address] [address] PCP - General Internal Medicine 01/24/23 documented as of this encounter
--- OUTSIDE RECORDS SUMMARY | 2025-06-09 12:33 | XMS_ITS | Encounter Summary ---
Author Organization [facility] Address [address] [facility] [place] [address] Care Team Providers Care Outside Sales Account Representative Name Role Phone Jack Vogt MD Primary Care Provider [phone] Encounter Details Date Type Department Care Team (Late Contact Info) Description 04/24/2025 Abstract [facility] Bill Wheeler [address] [facility] 110 [place] [address] Jack Vogt MD [address] [facility] 110 [place] [address] Social History Tobacco Use Types Packs/Day Years [...] 3:30 PM EDT Office Visit N[facility]S Bill Osuannce [address] [facility] 110 [place] [address] Jack Vogt MD [address] [facility] 110 [place] [address] documented as of this encounter Goals Goal Patient Goal Type Associated Problems Recent Progress Patient-Stated? Author Help patient manage antidepressant medication Care Plan Patient on antidepressant monitoring plan No Renetta Burton, SENIOR CENTER DIRECTOR documented as of this encounter Visit Diagnoses Not on filedocumented in this encounter Additional Health Concerns Active Problems Noted Date Diagnosed Date Patient on antidepressant monitoring plan 2024 Assessment Noted Time PHQ-9 Depression Total Score: 15 025 11:31 AM EDT documented as of this encounter Care Teams Outside Sales Account Representative Relationship Specialty Start Date End Date Jack Vogt MD 112 [place] [address] PCP - General Internal Medicine 01/24/23 documented as of this encounter
--- OUTSIDE RECORDS SUMMARY | 2025-06-09 12:33 | XMS_ITS | Encounter Summary ---
Author Organization [facility] Address [address] [place] [address] Care Team Providers Care Shell Shop Supervisor Name Role Phone Jack Vogt MD Primary Care Provider [phone] Encounter Details Date Type Department Care Team [...] Description 06/23/2025 3:30 PM EDT Office Visit [facility] 112 [facility] 110 [place] [address] Jack Vogt MD 112 [facility] 110 [place] [address] documented as of this encounter Procedures Procedure Name Priority Date/Time Associated Diagnosis Comments US RENAL DOPPLER 08/19/2023 4:55 AM EST documented in this encounter Results * US RENAL DOPPLER (08/19/2023 4:55 AM EST) Anatomical Region Laterality Modality Radiographic Ruma ging 08/19/2023 4:55 AM EST Narrative 08/19/2023 4:55 [place] [address] Ultrasound Report Signed Patient: LUPE NGUYEN MR#: [id number] : 1950 Acct:[id number] Age/Sex: 72 / F ADM Date: 08/17/23 Loc: CARD Attending Dr: SACHIN MATTHEWS Ordering Physician: SACHIN MATTHEWS Date of Service: 08/17/23 Procedure(s): US renal doppler Accession Number(s): [id number] cc: JACK VOGT ; SACHIN MATTHEWS [place] [id number] Patient Name: LUPE NGUYEN MRN: [id number] date: 1950 Sex: F Assigned Patient Location: CARD Current Patient Location: CARD Accession/Order Number: [id number] Exam Date: 08/17/2023 11:10 Report Date: 08/19/2023 [...] 04:55 Dictated By: Edwin Smith M.D. Signed By: 08/19/23456 DD/ 4 TD/TT: Quality Reviewer: Procedure Note Radiology, Radiologist, MD - 08/21/2023 [place] [address] Ultrasound Report Signed Patient: LUPE NGUYEN LMR#: [id number] : 1950Acct:[id number] Age/Sex: 72 / FADM Date: 08/17/23 Loc: [facility] Attending Dr: SACHIN MATTHEWS Ordering Physician: SACHIN MATTHEWS Date of Service: 08/17/23 Procedure(s): US renal doppler Accession Number(s): [id number] cc: JACK VOGT GEORGE [place] [address] Patient Name: LUPE NGUYEN MRN: [id number] date: 1950 Sex: F Assigned Patient Location: CARD Current Patient Location: CARD Accession/Order Number: [id number] Exam Date: 08/17/2023 11:10 Report Date: 08/19/2023 [...] 04:55 Dictated By: Edwin Smith M.D. Signed By:08/19/23 0457 DD/ 0455 TD/TT: Quality Reviewer: us Generic External Data Provider IMG XR PROCEDURES Final Result documented in this encounter Visit Diagnoses Not on filedocumented in this encounter Care Teams Shell Shop Supervisor Relationship Specialty Start Date End Date Jack Vogt MD 112 [place] [address] PCP - General Internal Medicine 01/24/23 documented as of this encounter
--- OUTSIDE RECORDS SUMMARY | 2025-06-09 12:33 | XMS_ITS | Encounter Summary ---
Author Organization [facility] Address [address] [facility] [place] [address] Care Team Providers Care Pallet Rectifier Name Role Phone Jack Vogt MD Primary Care Provider [phone] Encounter Details Date Type Department Care Team (Late Contact Info) Description 04/09/2025 Abstract [facility]S Bill Wheeler [address] [facility] 110 [place] [address] Jack Vogt MD [address] [facility] 110 [place] [address] Social History Tobacco Use Types Packs/Day Years [...] [address] [facility] 110 [place] [address] Jack Vogt MD [address] [facility] 110 [place] [address] documented as of this encounter Goals Goal Patient Goal Type Associated Problems Recent Progress Patient-Stated? Author Help patient manage antidepressant medication Care Plan Patient on antidepressant monitoring plan No Renetta Burton, ELECTROMECHANICAL INSPECTOR documented as of this encounter Visit Diagnoses Not on filedocumented in this encounter Additional Health Concerns Active Problems Noted Date Diagnosed Date Patient on antidepressant monitoring plan 2024 Assessment Noted Time PHQ-9 Depression Total Score: 15 025 11:31 AM EDT documented as of this encounter Care Teams Pallet Rectifier Relationship Specialty Start Date End Date Jack Vogt MD 112 [place] [address] PCP - General Internal Medicine 01/24/23 documented as of this encounter
--- OUTSIDE RECORDS SUMMARY | 2025-06-09 12:33 | XMS_ITS | Encounter Summary ---
Author Organization [facility] Address [address] [facility] [place] [address] Care Team Providers Care Rand Sewer Name Role Phone Jack Vogt MD Primary Care Provider [phone] Encounter Details Date Type Department Care Team ([facility] Contact Info) Description 09/19/2023 Abstract [facility] Bill Wheeler 112 [facility] 110 [place] [address] Jack Vogt MD [address] [place] [facility] 110 [place] [address] Social History Tobacco Use Types Packs/Day Years [...] Upcoming Encounters Date Type Department Care Team ([facility] Contact Info) Description 06/23/2025 3:30 PM EDT [facility] 112 [facility] 110 [place] [address] Jack Vogt MD [address] [place] [facility] 110 [place], [place] [address] documented as of this encounter Visit Diagnoses Not on filedocumented in this encounter Care Teams Rand Sewer Relationship Specialty Start Date End Date Jack Vogt MD 112 [facility] 110 [place] [address] PCP - General Internal Medicine 01/24/23 documented as of this encounter
--- OUTSIDE RECORDS SUMMARY | 2025-06-09 12:33 | XMS_ITS | Encounter Summary ---
Author Organization [facility] Address [address] [facility] [place] [address] Care Team Providers Care Deliverer Outside Name Role Phone Jack Vogt MD Primary Care Provider [phone] Encounter Details Date Type Department Care Team (Late Contact Info) Description 04/29/2025 Abstract [facility] [place] Wheeler [address] [facility] 110 [place] [address] Jack Vogt MD [address] [facility] 110 [place] [address] Social History Tobacco Use Types Packs/Day Years [...] Visit [facility] [place] [address] [facility] 110 [place] [address] Jack Vogt MD [address] [facility] 110 [place] [address] documented as of this encounter Goals Goal Patient Goal Type Associated Problems Recent Progress Patient-Stated? Author Help patient manage antidepressant medication Care Plan Patient on antidepressant monitoring plan No Renetta Burton, ASSOCIATE PROJECT MANAGER documented as of this encounter Visit Diagnoses Not on filedocumented in this encounter Additional Health Concerns Active Problems Noted Date Diagnosed Date Patient on antidepressant monitoring plan 2024 Assessment Noted Time PHQ-9 Depression Total Score: 15 025 11:31 AM EDT documented as of this encounter Care Teams Deliverer Outside Relationship Specialty Start Date End Date Jack Vogt MD 112 [place] [address] PCP - General Internal Medicine 01/24/23 documented as of this encounter
--- OUTSIDE RECORDS SUMMARY | 2025-06-09 12:33 | XMS_ITS | Encounter Summary ---
Author Organization [facility] Address [address] [facility] [place] [address] Care Team Providers Care Grade Checker Name Role Phone Jack Vogt MD Primary Care Provider [phone] Encounter Details Date Type Department Care Team (Late Contact Info) Description 04/29/2025 Abstract [facility] [place] Wheeler [address] [facility] 110 [place] [address] Jack Vogt MD [address] [facility] 110 [place] [address] Social History Tobacco Use Types Packs/Day Years [...] [facility] [place] [address] [facility] 110 [place] [address] Jack Vogt MD [address] [facility] 110 [place] [address] documented as of this encounter Goals Goal Patient Goal Type Associated Problems Recent Progress Patient-Stated? Author Help patient manage antidepressant medication Care Plan Patient on antidepressant monitoring plan No Renetta Burton, GAS STATION SERVICE ATTENDANT documented as of this encounter Visit Diagnoses Not on filedocumented in this encounter Additional Health Concerns Active Problems Noted Date Diagnosed Date Patient on antidepressant monitoring plan 2024 Assessment Noted Time PHQ-9 Depression Total Score: 15 025 11:31 AM EDT documented as of this encounter Care Teams Grade Checker Relationship Specialty Start Date End Date Jack Vogt MD 112 [place] [address] PCP - General Internal Medicine 01/24/23 documented as of this encounter
--- OUTSIDE RECORDS SUMMARY | 2025-06-09 12:33 | XMS_ITS | Encounter Summary ---
Author Organization [facility] Address [address] [facility] [place] [address] Care Team Providers Care Car Rental Manager Name Role Phone Jack Vogt MD Primary Care Provider [phone] Encounter Details Date Type Department Care Team (Late Contact Info) Description 09/20/2023 Orders Only [facility] [place] [facility] 112 [facility] 110 [place] [address] A, Unknown Practice [address] [place], [place] [phone] Social History Tobacco Use Types Packs/Day Years [...] PM EDT Office Visit [facility] [place] [facility] [address] [facility] 110 [place] [address] Jack Vogt MD [address] [facility] 110 [place] [address] documented as of this encounter [...] on filedocumented in this encounter Care Teams Car Rental Manager Relationship Specialty Start Date End Date Jack Vogt MD 112 [place] [id number] PCP - General Internal Medicine 01/24/23 documented as of this encounter
--- OUTSIDE RECORDS SUMMARY | 2025-06-09 12:33 | XMS_ITS | Encounter Summary ---
Author Organization [facility] Address [address] [place] [address] Care Team Providers Care Bilingual Student Tutor Name Role Phone Jack Vogt MD Primary Care Provider [phone] Reason for Visit * Reason Comments Med Refill Encounter Details Date Type Department Care Team (Late Contact Info) Description 08/04/2023 Refill [facility] [place] [facility] [address] [facility] 110 [place] [phone] Wanda Vásquez PA [address] [facility] 110 [place] [address] Insomnia due to medical condition Social History [...] 3:30 PM EDT Office Visit [facility] [place] Family [facility] [address] [facility] 110 [place] [address] Jack Vogt MD 112 [facility] 110 [place] [address] documented as of this encounter Visit Diagnoses Diagnosis Insomnia due to medical condition Organic insomnia, unspecified documented in this encounter Care Teams Bilingual Student Tutor Relationship Specialty Start Date End Date Jack Vogt MD 112 [facility] 110 [place] [address] PCP - General Internal Medicine 01/24/23 documented as of this encounter
--- OUTSIDE RECORDS SUMMARY | 2025-06-09 12:33 | XMS_ITS | Encounter Summary ---
Author Organization [facility] Address [address] [facility] [place] [address] Care Team Providers Care Acoustic Sensor Operator Name Role Phone Jack Vogt MD Primary Care Provider [phone] Encounter Details Date Type Department Care Team ([facility] Contact Info) Description 2023 Abstract [facility] [place] Wheeler 112 [facility] 110 [place] [address] Jack Vogt MD [address] [facility] 110 [place] [address] Social History Tobacco Use Types Packs/Day Years [...] Upcoming Encounters Date Type Department Care Team ([facility] Contact Info) Description 06/23/2025 3:30 PM EDT Office [facility] [place] [facility] 112 [facility] 110 [place] [address] Jack Vogt MD [address] [facility] 110 [place], [place] [address] documented as of this encounter Visit Diagnoses Not on filedocumented in this encounter Care Teams Acoustic Sensor Operator Relationship Specialty Start Date End Date Jack Vogt MD 112 [facility] 110 [place] [address] PCP - General Internal Medicine 01/24/23 documented as of this encounter
--- OUTSIDE RECORDS SUMMARY | 2025-06-09 12:34 | XMS_ITS | Encounter Summary ---
Author Organization [facility] Address [address] [facility] [address] Care Team Providers Care Computer Support Specialist Instructor Name Role Phone Jack Vogt MD Primary Care Provider [phone] Encounter Details Date Type Department Care Team (Late Contact Info) Description 04/14/2025 Abstract [facility] [place] Wheeler [address] [facility] 110 [place] [address] Jack Vogt MD [address] [facility] 110 [place] [address] Social History Tobacco Use Types Packs/Day Years [...] Visit [facility] [place]sunance [address] [facility] 110 [place] [address] Jack Vogt MD [address] [facility] 110 [place] [address] documented as of this encounter Goals Goal Patient Goal Type Associated Problems Recent Progress Patient-Stated? Author Help patient manage antidepressant medication Care Plan Patient on antidepressant monitoring plan No Renetta Burton, EXHIBIT DISPLAY REPRESENTATIVE documented as of this encounter Visit Diagnoses Not on filedocumented in this encounter Additional Health Concerns Active Problems Noted Date Diagnosed Date Patient on antidepressant monitoring plan 2024 Assessment Noted Time PHQ-9 Depression Total Score: 15 025 11:31 AM EDT documented as of this encounter Care Teams Computer Support Specialist Instructor Relationship Specialty Start Date End Date Jack Vogt MD 112 [place] [address] PCP - General Internal Medicine 01/24/23 documented as of this encounter
--- OUTSIDE RECORDS SUMMARY | 2025-06-09 12:34 | XMS_ITS | Encounter Summary ---
Author Organization [facility] Address [address] [facility] [place] [address] Care Team Providers Care Mechanical Maintenance Instructor Name Role Phone Jack Vogt MD Primary Care Provider [phone] Encounter Details Date Type Department Care Team ([facility] Contact Info) Description 06/15/2023 Abstract [facility] [place] [facility] 112 [facility] 110 [place] [address] Jack Vogt MD [address] [facility] 110 [place] [address] Social History Tobacco Use Types Packs/Day Years [...] Encounters Date Type Department Care Team ([facility] Contact Info) Description 06/23/2025 3:30 PM EDT Office Visit [facility] 112 [facility] 110 [place] [address] Jack Vogt MD [address] [facility] 110 [place], [place] [address] documented as of this encounter Visit Diagnoses Not on filedocumented in this encounter Care Teams Mechanical Maintenance Instructor Relationship Specialty Start Date End Date Jack Vogt MD 112 [facility] 110 [place] [address] PCP - General Internal Medicine 01/24/23 documented as of this encounter
--- OUTSIDE RECORDS SUMMARY | 2025-06-09 12:34 | XMS_ITS | Encounter Summary ---
Author Organization [facility] Address [address] [place] [address] Care Team Providers Care Baby Attendant Name Role Phone Jack Vogt MD Primary Care Provider [phone] Encounter Details Date Type Department Care Team (Late Contact Info) Description 02/08/2023 Abstract [facility] [place] Osunacee [address] [facility] 110 [place] [address] Jack Vogt MD [address] [facility] 110 [place] [address] Social History Tobacco Use Types Packs/Day Years [...] 3:30 PM EDT Office Visit [facility] [place] [facility] [address] [facility] 110 [place] [address] Jack Vogt MD [address] [facility] 110 [place] [address] documented as of this encounter Visit Diagnoses Not on filedocumented in this encounter Care Teams Baby Attendant Relationship Specialty Start Date End Date Jack Vogt MD [address] [facility] 110 [place] [address] PCP - General Internal Medicine 01/24/23 documented as of this encounter
--- OUTSIDE RECORDS SUMMARY | 2025-06-09 12:34 | XMS_ITS | Encounter Summary ---
Author Organization [facility] Address [address] [facility] [place] [address] Care Team Providers Care Intelligence Analyst Name Role Phone Jack Vogt MD Primary Care Provider [phone] Encounter Details Date Type Department Care Team ([facility] Contact Info) Description 07/14/2023 Abstract [facility] 112 [facility] 110 [place] [address] Jack Vogt MD 112 [facility] 110 [place] [address] Social History Tobacco Use Types Packs/Day Years [...] Upcoming Encounters Date Type Department Care Team ([facility] Contact Info) Description 06/23/2025 3:30 PM EDT Office [facility] [place] [facility] 112 [facility] 110 [place] [address] Jack Vogt MD 112 [facility] 110 [place], [place] [address] documented as of this encounter Visit Diagnoses Not on filedocumented in this encounter Care Teams Intelligence Analyst Relationship Specialty Start Date End Date Jack Vogt MD 112 [facility] 110 [place] [address] PCP - General Internal Medicine 01/24/23 documented as of this encounter
--- OUTSIDE RECORDS SUMMARY | 2025-06-09 12:34 | XMS_ITS | Encounter Summary ---
Author Organization [facility] Address [address] [facility] [place] [address] Care Team Providers Care Transcriber Name Role Phone Jack Vogt MD Primary Care Provider [phone] Encounter Details Date Type Department Care Team ([facility] Contact Info) Description 05/11/2023 Abstract [facility] Wil[facility] Champion [facility] 112 [facility] 110 [place] [address] Jack Vogt MD 112 [facility] 110 [place] [address] Social History Tobacco Use Types Packs/Day Years [...] Upcoming Encounters Date Type Department Care Team ([facility] Contact Info) Description 06/23/2025 3:30 PM EDT Office Visit [facility] 112 [facility] 110 [place] [address] Jack Vogt MD 112 [facility] 110 [place], [place] [address] documented as of this encounter Visit Diagnoses Not on filedocumented in this encounter Care Teams Transcriber Relationship Specialty Start Date End Date Jack Vogt MD 112 [facility] 110 [place] [address] PCP - General Internal Medicine 01/24/23 documented as of this encounter
--- OUTSIDE RECORDS SUMMARY | 2025-06-09 12:34 | XMS_ITS | Encounter Summary ---
Author Organization [facility] Address [address] [facility] [place] [address] Care Team Providers Care Cross Country/Track And Field Coach Name Role Phone Jack Vogt MD Primary Care Provider [phone] Encounter Details Date Type Department Care Team ([facility] Contact Info) Description 07/25/2023 Abstract [facility] [place] Champion [facility] 112 [facility] 110 [place] [address] Jack Vogt MD 112 [facility] 110 [place] [address] Social History Tobacco Use Types Packs/Day Years [...] Care Team ([facility] Contact Info) Description 06/23/2025 3:30 PM EDT Office Visit [facility] [place] [facility] 112 [facility] 110 [place] [address] Jack Vogt MD 112 [facility] 110 [place], [place] [address] documented as of this encounter Visit Diagnoses Not on filedocumented in this encounter Care Teams Cross Country/Track And Field Coach Relationship Specialty Start Date End Date Jack Vogt MD 112 [facility] 110 [place] [address] PCP - General Internal Medicine 01/24/23 documented as of this encounter
--- OUTSIDE RECORDS SUMMARY | 2025-06-09 12:34 | XMS_ITS | Encounter Summary ---
Author Organization [facility] Address [address] [facility] [place] [address] Care Team Providers Care Airline Captain Name Role Phone Jack Vogt MD Primary Care Provider [phone] Encounter Details Date Type Department Care Team (Late Contact Info) Description 04/10/2025 Abstract [facility] [place] Wheeler [address] [facility] 110 [place] [address] Jack Vogt MD [address] [facility] 110 [place] [address] Social History Tobacco Use Types Packs/Day Years [...] Visit [facility] [place] Osunance [address] [facility] 110 [place] [address] Jack Vogt MD [address] [facility] 110 [place] [address] documented as of this encounter Goals Goal Patient Goal Type Associated Problems Recent Progress Patient-Stated? Author Help patient manage antidepressant medication Care Plan Patient on antidepressant monitoring plan No Renetta Burton, EXPERIMENTAL TECHNICIAN documented as of this encounter Visit Diagnoses Not on filedocumented in this encounter Additional Health Concerns Active Problems Noted Date Diagnosed Date Patient on antidepressant monitoring plan 2024 Assessment Noted Time PHQ-9 Depression Total Score: 15 025 11:31 AM EDT documented as of this encounter Care Teams Airline Captain Relationship Specialty Start Date End Date Jack Vogt MD 112 [place] [address] PCP - General Internal Medicine 01/24/23 documented as of this encounter
--- OUTSIDE RECORDS SUMMARY | 2025-06-09 12:34 | XMS_ITS | Encounter Summary ---
Author Organization [facility] Address [address] [facility] [place] [address] Care Team Providers Care Plating Inspector Name Role Phone Jack Vogt MD Primary Care Provider [phone] Encounter Details Date Type Department Care Team (Late Contact Info) Description 04/17/2025 Abstract [facility] [place] Wheeler [address] [facility] 110 [place] [address] Jack Vogt MD [address] [facility] 110 [place] [address] Social History Tobacco Use Types Packs/Day Years [...] [facility] [place] Osunance [address] [facility] 110 [place] [address] Jack Vogt MD [address] [facility] 110 [place] [address] documented as of this encounter Goals Goal Patient Goal Type Associated Problems Recent Progress Patient-Stated? Author Help patient manage antidepressant medication Care Plan Patient on antidepressant monitoring plan No Renetta Burton, QUALITY IMPROVEMENT ANALYST documented as of this encounter Visit Diagnoses Not on filedocumented in this encounter Additional Health Concerns Active Problems Noted Date Diagnosed Date Patient on antidepressant monitoring plan 2024 Assessment Noted Time PHQ-9 Depression Total Score: 15 025 11:31 AM EDT documented as of this encounter Care Teams Plating Inspector Relationship Specialty Start Date End Date Jack Vogt MD 112 [place] [address] PCP - General Internal Medicine 01/24/23 documented as of this encounter
--- OUTSIDE RECORDS SUMMARY | 2025-06-09 12:34 | XMS_ITS | Clinical Summary ---
Author Organization [facility] Address [address] [facility], [address] [place] [address] Care Team Providers Care Single Wire Saw Operator Name Role Phone Jack Vogt MD Primary Care Provider [phone] Allergies Active Allergy Reactions Criticality Noted Date [...] tablet Take 40 mg by mouth daily 8 Active NIFEdipine (PROCARDIA XL) 90 MG [...] on file Medical Devices Implanted Type Area Enterprise Sales Person Device Identifier Shelf Expiration Date Model / Serial / Lot Graft Canc Chip 30cc [id number] - [id number] Implanted:Qty : 1 on 06/04/2018 by Per Barber MD at [facility] Bone/Gra ft/Tissu e/Human/ Synth N/A: Spine Lumbar MUSCULOSKELETAL TRANSPLANT FND-PMM 04/02/2021 [id number] / [id number] / Kit Sealant Surgiflo Hemostatic Matrix - [id number] Implanted:Qty : 1 on 06/04/2018 by Per Barber MD at [facility] Bone/Gra ft/Tissu e/Human/ Synth N/A: Spine Lumbar JNJ: [employer]-[facility] 04/17/2020 [id number] / [id number] / Kit Sealant Surgiflo Hemostatic Matrix Implanted:Qty : 1 on 06/04/2018 by Per Barber MD at [facility] Bone/Gra ft/Tissu e/Human/ Synth N/A: Spine Lumbar JNJ: [employer]-M 01/15/2019 2994 / / [id number] Screw Polyaxial Reline-O 2s 6.5x55mm Implanted:Qty : 3 on 06/04/2018 by Per Barber MD at [facility] Screw/Pl ate/Nail /Emmanuel N/A: Spine Lumbar [employer]-PMM [id number] / / Screw Polyaxial Reline-O 6.5x50mm Implanted:Qty : 1 on 06/04/2018 by Per Barber MD at [facility] Screw/Pl ate/Nail /Emmanuel N/A: Spine Lumbar [employer]-PMM [id number] / / Wally-Cellular Bone Matrix 10cc - [id number] Implanted:Qty : 1 on 06/04/2018 by Per Barber MD at [facility] Spine N/A: Spine Lumbar [employer]-PMM 10/07/2022 [id number] / [id number] / Screw Lk Reline Opn Tulip 5.5mm Implanted:Qty : 6 on 06/04/2018 by Per Barber MD at [facility] Spine N/A: Spine Lumbar [employer]-PMM [id number] / / Impl Spine Coroent Mp Lg [id number] 4deg Implanted:Qty : 2 on 06/04/2018 by Per Barber MD at [facility] Spine N/A: Spine Lumbar [employer]-PMM [id number] / / Impl Spine Emmanuel Reline-O Lrdtc 5.5x70mm Implanted:Qty : 2 on 06/04/2018 by Per Barber MD at [facility] Spine N/A: Spine Lumbar [employer]-PMM [id number] / / Reline Reduction Screw Implanted:Qty : 2 on 06/04/2018 by Per Barber MD at [facility] N/A: Spine Lumbar Insurance MEDICARE MEDICARE Advance Directives * Full Code (Latest Code Status on File) Date Activated Date Inactivated Comments 06/04/2018 6:16 PM 06/07/2018 7:05 PM Care Teams Single Wire Saw Operator Relationship Specialty Start Date End Date Jack Vogt MD [address] [address] PCP - General Internal Medicine 03/13/18
--- OUTSIDE RECORDS SUMMARY | 2025-06-09 12:34 | XMS_ITS | Encounter Summary ---
Author Organization [facility] Address [address] [facility] [place] [address] Care Team Providers Care Sample Mounter Name Role Phone Jack Vogt MD Primary Care Provider [phone] Encounter Details Date Type Department Care Team (Late Contact Info) Description 04/10/2025 Abstract [facility] [place] Wheeler [address] [facility] 110 [place] [address] Jack Vogt MD [address] [facility] 110 [place] [address] Social History Tobacco Use Types Packs/Day Years [...] Visit N[facility]S [place] Osunance [address] [facility] 110 [place] [address] Jack Vogt MD [address] [facility] 110 [place] [address] documented as of this encounter Goals Goal Patient Goal Type Associated Problems Recent Progress Patient-Stated? Author Help patient manage antidepressant medication Care Plan Patient on antidepressant monitoring plan No Renetta Burton, TROMPER documented as of this encounter Visit Diagnoses Not on filedocumented in this encounter Additional Health Concerns Active Problems Noted Date Diagnosed Date Patient on antidepressant monitoring plan 2024 Assessment Noted Time PHQ-9 Depression Total Score: 15 025 11:31 AM EDT documented as of this encounter Care Teams Sample Mounter Relationship Specialty Start Date End Date Jack Vogt MD 112 [place] [address] PCP - General Internal Medicine 01/24/23 documented as of this encounter
--- OUTSIDE RECORDS SUMMARY | 2025-06-09 12:40 | XMS_ITS | CCD ---
Author Organization [facility] Care Team Providers Care Mixologist Name Role Phone DESIRAE, SHAKA H. Unavailable Unavailable JACK VOGT Unavailable Unavailable DESIRAE, SHAKA H. Unavailable Unavailable DESIRAE, SHAKA H. Unavailable Unavailable JACK VOGT Unavailable Unavailable DESIRAE, SHAKA H. Unavailable Unavailable DESIRAE, SHAKA H. Unavailable Unavailable JACK VOGT Unavailable Unavailable THOMAS Vogt Primary Care Provider [phone] THOMAS Vogt Referring Provider Self, Referral Attending Provider Unavailable JACK VOGT Primary Care Physician JOHN LUTHER Attending Unavailable ZHOU, JOHN Admitting Unavailable JOHN LUTHER Consulting Unavailable DR JACK VOGT Primary Care Unavailable JOHN LUTHER Attending Unavailable JOHN LUTHER Admitting Unavailable DR JACK VOTG Primary Care Unavailable DR HENRY WALL V Consulting Unavailable ZHOU, JOHN Consulting Unavailable JOHN LUTHER Attending Unavailable CHANDAN LUTHERA Admitting Unavailable JOHN LUTHER Consulting Unavailable DR JACK VOGT Primary Care Unavailable JOHN LUTHER Attending Unavailable ZHOU, JOHN Admitting Unavailable JOHN LUTHER Consulting Unavailable DR JACK VOGT Primary Care Unavailable RENETTA MONCADA Attending Unavailable RENETTA MONCADA Admitting Unavailable DR JACK VOGT Primary Care Unavailable DR TONYA GARCIA Consulting Unavailable RENETTA MONCADA Consulting Unavailable ALFREDO CARDENAS Consulting Unavailable DR JACK VOGT Primary Care Unavailable ALFREDO CARDENAS Attending Unavailable ALFREDO CARDENAS Admitting Unavailable RYLAN HOPKINS Consulting Unavailable DAR, CARLYN Attending Unavailable DAR, CARLYN Admitting Unavailable DR JACK VOGT Primary Care Unavailable DR TONYA GARCIA Consulting Unavailable DAR, CARLYN Consulting Unavailable CARDENAS, ALFREDO Consulting Unavailable FRANCHESCA, DR DOSS Primary Care Unavailable CARDENAS, ALFREDO Attending Unavailable CARDENAS, ALFREDO Admitting Unavailable WEST, DR HENRY Mosley Consulting Unavailable DAR, CARLYN Attending Unavailable DAR, CARLYN Admitting Unavailable DAR, CARLYN Consulting Unavailable VOGT, DR DOSS Primary Care Unavailable ZHOU, JOHN Attending Unavailable ZHOU, JOHN Admitting Unavailable VOGT, DR DOSS Primary Care Unavailable ZIEBER, DR TONYA Moya Consulting Unavailable ZHOU, JOHN Consulting Unavailable NEFJERRICA HERNANDEZ Consulting Unavailable THOMAS Vogt Primary Care Provider [phone] MD Kevin Hamilton II Attending Provider [phone] Self, Referral Attending Provider Unavailable Jack Vogt MD Primary Care Provider Maria Luisa Thomson Attending Unavailable CARDENAS, Alfredo R Attending Unavailable CARDENAS, Alfredo R Attending Unavailable Orzech, Maria Luias Pritchard Attending Unavailable CARDENAS, Alfredo R Attending Unavailable JACK VOGT Attending Unavailable VOGT, JACK Boudreaux Attending Unavailable RENETTA MONCADA Attending Unavailable VOGT, JACK Boudreaux Attending Unavailable CURT, ERICKSON T Referring Unavailable CURT, ERICKSON T Referring Unavailable KATKO, BARBY Referring Unavailable HORANI, ZAHIRA Admitting Unavailable CURT, ERICKSON T Attending Unavailable CURT, ERICKSON T Referring Unavailable CURT, ERICKSON T Referring Unavailable CURT, ERICKSON T Referring Unavailable LAURACARA Attending Unavailable MOUKARBELSACHIN Attending Unavailable CURT, ERICKSON T Referring Unavailable Jack Vogt II Primary Care Provider [phone] Sukumar BEAULIEU, Elsy Attending Provider Carolina TELLO, Sohail Willson Emergency Provider [phone] Rajiv Trejo MD Admit Provider [phone] Rajiv Trejo MD Attending Provider Nick Antonio MD Other Provider [phone] Kana Vazuqez MD Other Provider [phone] Judy Espinosa MD Other Provider Estrella Velásquez MD Other Provider Andrew Arrington MD Attending Provider Andrew Arrington MD Other Provider Estefania Yoder APRN Other Provider Keith Koehler DO Other Provider Pilo Harry MD Other Provider Tony Monterroso [...] Drug Allergy 4 Eruption of skin (disorder) [facility] Pneumococcal vaccine (1 source) Pneumococcal vaccine Drug Allergy 4 Edema [facility] Shellfish (1 source) Shellfish; Translations: [shellfish] Food Allergy Unknown (qualifier value) [facility] varenicline (1 source) varenicline Drug Allergy 4 Vomiting [facility] (20 sources) Iodine; Translations: [Iodine] Drug Allergy 0 Eruption of skin (disorder) [facility] (5 sources) Pneumococcal vaccine; Translations: [pneumococcal vaccine] Drug Allergy 1 Edema [facility] (20 sources) varenicline; Translations: [VARENICLINE] Drug Allergy 1 Vomiting [facility] (6 sources) Latkxcz-JYP-WhG Reductase Inhibitor; Translations: [Wnmwacf-TTV-BnF Reductase Inhibitor] Allergy to substance 1 Unknown Reaction [facility] (20 sources) HMG-CoA reductase inhibitor; Translations: [statins] Drug allergy 5 Unknown (qualifier value), Unknown [facility] (6 sources) Shellfish; Translations: [shellfish] Drug allergy Unknown (qualifier value) [facility] (2 sources) black walnut pollen extract; Translations: [GWWDGKP-ADI-DVM REDUCTASE INHIBITORS] Drug Allergy 0 [facility] (1 source) varenicline Drug Allergy 0 [facility] (1 source) Pneumovax 23 Drug allergy (disorder) 0 [facility] (18 sources) atorvastatin Drug Allergy 3 [facility] (18 sources) Lovastatin Allergy to substance 3 [facility] (18 sources) Pravastatin Drug Allergy 3 [facility] (18 sources) Simvastatin Allergy to substance 3 [facility] (18 sources) Pneumococcal Vac Polyvalent Drug Allergy 3 [facility] (15 sources) nickel sulfate; Translations: [NICKEL] Drug Allergy 8 Dermatitis [facility] (14 sources) Shellfish Propensity to adverse reactions 8 Anaphylaxis [facility] (14 sources) Other Allergy to substance 5 [facility] (1 source) Contrast media; Translations: [RED DYE] Propensity to adverse reactions to drug (disorder) 2 [facility] (1 source) Pneumococcal vaccine; Translations: [PNEUMOCOCCAL 23-RCUZ PS VACCINE] Drug Allergy 1 [facility] (1 source) Shellfish; Translations: [SHELLFISH DERIVED] Propensity to adverse reactions to drug (disorder) 8 [facility] Medications Current Medications Medication Drug Class(es) Dates Sig (Normalized) Sig (Original) acetaminophen 325 mg / HYDROcodone bitartrate 5 mg oral tablet (11 sources) Opioid Agonist Start: 12-12-2024 End: 01-11-2025 take 1 tablet by mouth every six hours for pain HYDROcodone-acetami nophen (Seymour) 5-325 MG tablet Indications: Spinal stenosis, lumbar [...] (20 sources) alpha-Adrenergic Genoveva, beta-Adrenergic Genoveva Start: 03-25-2025 take 1 tablet by mouth twice daily Start: 02-22-2024 End: 02-25-2025 take 1 tablet [...] Ordered cloNIDine hydrochloride 0.1 mg oral tablet (18 sources) Central alpha-2 Adrenergic Agonist Start: 03-20-2025 End: 07-18-2025 take 1 tablet by mouth in the morning, then take 1 tablet by mouth in the evening, then take 1 tablet by mouth at bedtime cloNIDine (Catapres) 0.1 MG tablet Indications: Benign essential hypertension Take 1 tablet (0.1 mg) by mouth in the morning and 1 tablet (0.1 mg) in the evening and 1 tablet (0.1 mg) before bedtime. 270 tablet 3 03/31/2025 Active Start: 02-22-2024 End: 02-21-2025 take 1 tablet by mouth in the morning cloNIDine (Catapres) 0.1 MG tablet Indications: Benign essential hypertension (CMS/HCC) Take 1 tablet (0.1 mg) by mouth in the morning and 1 tablet (0.1 mg) before bedtime. 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 30 tablet 3 03/31/2025 07/29/2025 Active DULoxetine 30 mg Cap-EC (5 sources) Start: 03-04-2022 DULoxetine 30 mg Cap-EC Refills(s) 0 Start Date: 03/04/22 Status: Ordered DULoxetine 60 mg Cap-EC (5 sources) Start: 03-04-2022 DULoxetine 60 mg Cap-EC Refills(s) 0 Start Date: 03/04/22 Status: Ordered escitalopram 5 mg oral tablet (9 sources) Serotonin Reuptake Inhibitor Start: 03-21-2025 End: 07-29-2025 take 1 tablet by mouth in the morning escitalopram (Lexapro) 5 MG tablet Indications: Depressive disorder Take 1 tablet (5 mg) by mouth in the morning. 30 tablet 3 03/31/2025 07/29/2025 Active ezetimibe 10 mg oral tablet (20 sources) Dietary Cholesterol Absorption Inhibitor Start: 03-24-2021 take 1 tablet by mouth once daily ezetimibe (Zetia) 10 MG tablet Indications: Stage 3b chronic kidney disease (CMS-HCC) TAKE 1 TABLET BY MOUTH EVERY DAY 90 tablet 3 12/27/2024 Active fenofibrate 145 mg oral tablet (20 sources) Peroxisome Proliferator Receptor alpha Agonist Start: 03-24-2021 take 1 tablet by mouth once daily fenofibrate (Tricor) 145 MG tablet Indications: Mixed hyperlipidemia TAKE 1 TABLET BY MOUTH EVERY DAY 90 tablet 4 10/23/2024 Active furosemide 40 mg oral tablet (8 sources) [...] End: 03-31-2026 take 1 tablet by mouth in the morning, then take 1 tablet by mouth in the evening, then take 1 tablet by mouth at bedtime hydrALAZINE (Apresoline) 100 MG tablet Indications: Benign essential hypertension Take 1 tablet (100 mg) by mouth in the morning and 1 tablet (100 mg) in the evening and 1 tablet (100 mg) before bedtime. 90 tablet 11 03/31/2025 03/31/2026 Active Start: 02-22-2024 End: 02-21-2025 take 1 tablet [...] Daily, # 30 tab(s), Refills(s) 11, Pharmacy: [facility]/pharmacy #[id number], 163, cm, 11/18/24 13:38:00 EST, Height/Length Dosing, 74.1, kg, 11/18/24 13:38:00 EST, Weight Dosing Start Date: 11/18/24 Status: Ordered NIFEdipine 90 mg osmotic 24 hr extended release oral tablet (20 sources) Dihydropyridine Calcium Channel Genoveva Start: 04-08-2025 take 1 tablet by mouth twice daily Start: 03-31-2025 take 1 tablet by gloria th every twenty-four hours in the morning NIFEdipine XL (Procardia XL) 90 MG 24 hr tablet Indications: 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 Take 1 [...] 0.4 MG SL tablet Indications: 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 Place 1 tablet (0.4 mg) under the tongue every 5 (five) minutes if needed for chest pain 90 tablet 12 03/20/2024 Active Start: 03-04-2022 nitroglycerin 0.4 mg SubL [place] mg spray(s), SubLingual, q5min, Refills(s) 0 Start Date: 03/04/22 Status: Ordered 24 hr oxybutynin chloride 10 mg extended release oral tablet (9 sources) Cholinergic Muscarinic Antagonist Start: 10-23-2023 End: 12-12-2024 take 1 tablet by mouth once daily oxybutynin 10 mg ER Tab 10 mg = 1 tab(s), Oral, Daily, # 90 tab(s), Refills(s) 3, Pharmacy: [facility]/pharmacy #[id number], 163, cm, 10/23/23 12:33:00 EST, Height/Length Dosing, 81.5, kg, 10/23/23 12:33:00 EST, Weight Dosing Start Date: 10/23/23 Status: Ordered pantoprazole 40 mg delayed release oral tablet (20 sources) Proton Pump Inhibitor Start: 04-11-2025 Start: 03-24-2021 End: 04-11-2025 take 1 tablet by mouth once daily pantoprazole (ProtoNix) 40 MG EC tablet Indications: Gastroesophageal reflux disease, unspecified whether esophagitis present Take 1 tablet (40 mg) by mouth Daily 90 tablet 3 03/25/2025 Active sennosides, halfway 8.6 mg oral tablet (8 sources) Start: 03-20-2025 End: 07-18-2025 take 1 tablet by mouth once daily at bedtime traMADol hydrochloride 50 mg oral tablet (6 sources) Opioid Agonist Start: 03-24-2025 End: 06-22-2025 [...] Discontinued Start: 12-30-2023 take 1 capsule by [facility] once daily DULoxetine (Cymbalta) [address] [...] sources) Serotonin-3 Receptor Antagonist Start: 03-24-2021 End: 07-10-2021 take 4 mg by mouth every eight [...] te Episodic/Chronic Acute and unspecified renal failure (15 sources) Injury of kidney; Translations: [Acute kidney failure, unspecified] Onset: 03-27-2021 Episodic Acute myocardial infarction (6 sources) Myocardial infarction 06-28-2021 Chronic Administrative/social admission (2 sources) Patient encounter status; Translations: [Other specified counseling] 12-12-2024 Episodic Anxiety disorders (3 sources) Anxiety; Translations: [Anxiety disorder, unspecified] 11-03-2024 Chronic Aortic; peripheral; and visceral artery aneurysms (18 sources) Dissection of abdominal aorta; Translations: [Dissection of abdominal aorta] Onset: 3 05-05-2023 Chronic Cardiac dysrhythmias (18 sources) Tucker rhythm disorder; Translations: [Other specified cardiac arrhythmias] Onset: 3 05-05-2023 Chronic Chronic kidney disease (20 sources) Chronic kidney disease stage 3B ; Translations: [Stage 3b chronic kidney disease (HCC)] Onset: 4 10-04-2023 Chronic Chronic kidney disease (2 sources) Chronic kidney disease; Translations: [Chronic kidney disease, stage 3b] Onset: 3 Complication of device; implant or graft (19 sources) Atherosclerosis of coronary artery bypass graft(s) without angina pectoris; Translations: [Arteriosclerosis of autologous vein coronary artery bypass graft] Onset: 2 05-10-2023 Chronic Coronary atherosclerosis and other heart disease (20 sources) Atherosclerotic heart disease of [place] coronary artery without angina pectoris; Translations: [Coronary atherosclerosis] Onset: 2 Chronic Deficiency and other anemia (18 sources) Anemia due to chronic blood loss; [...] hyperlipidemia] Onset: 2 06-28-2021 Chronic Esophageal disorders (19 sources) Gastroesophageal reflux disease; Translations: [Gastro-esophageal reflux [...] Onset: 3 05-05-2023 Chronic Nonmalignant breast conditions (18 sources) Fibrocystic disease of breast; Translations: [Diffuse cystic mastopathy of unspecified breast] Onset: 3 05-05-2023 Chronic Occlusion or stenosis of precerebral arteries (19 sources) Occlusion and stenosis of bilateral carotid [...] sources) Long-term current use of anticoagulant; Translations: [ad terminal makeup operator (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] Onset: 3 Episodic Other and ill-defined heart disease (6 sources) Heart disease 06-28-2021 Chronic Other circulatory disease (18 sources) Stricture of artery; Translations: [Stricture of artery] Onset: 3 05-05-2023 Chronic Other diseases of kidney and ureters (6 sources) Disorder of kidney and/or ureter; Translations: [Disorder of kidney and ureter, unspecified] Onset: 2 Episodic Other diseases of veins and lymphatics (5 sources) Lymphedema; Translations: [Lymphedema, not elsewhere classified] Onset: 4 11-23-2023 Chronic Other diseases of veins and lymphatics (1 source) Lymphedema, not elsewhere classified; Translations: [Other lymphedema] 11-23-2023 Chronic Other gastrointestinal disorders (18 sources) Irritable bowel syndrome; Translations: [Irritable bowel [...] Episodic Other nutritional; endocrine; and metabolic disorders (18 sources) Obese class I; Translations: [Obesity (BMI [...] supporting structures] 11-23-2023 Episodic Residual codes; unclassified (3 sources) Insomnia, unspecified; Translations: [Insomnia, unspecified] Onset: 3 Episodic Spondylosis; intervertebral disc disorders; other back problems (20 sources) Lumbar spondylosis; Translations: [Spondylosis without myelopathy or radiculopathy, lumbar region] Onset: 9 05-05-2023 Chronic Spondylosis; intervertebral disc disorders; other back problems (2 sources) Spondylosis; intervertebral disc disorders; other back problems; Translations: [L5-S1 RADICULOPATHY, SPONDYLOSIS] Onset: 8 Substance-related disorders (18 sources) Tobacco dependence syndrome; Translations: [Nicotine dependence, unspecified, uncomplicated] Onset: 3 05-05-2023 Chronic Thyroid disorders (20 sources) Thyroid nodule; Translations: [Nontoxic single thyroid nodule] Onset: 3 05-05-2023 Chronic Unclassified (5 sources) 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 09-26-2022 Unclassified (8 sources) Patient on antidepressant monitoring plan Onset: [...] Date Documented Da te Episodic/Chronic Abdominal pain (20 sources) Generalized abdominal pain; Translations: [Generalized abdominal pain] Onset: 05-05-2023 Resolved: 04-03-2025 05-05-2023 Episodic Acquired foot deformities (18 sources) Left foot drop; Translations: [Foot drop, left foot] Onset: 05-05-2023 05-05-2023 Episodic Allergic reactions (20 sources) Allergy to seafood; Translations: [Allergy to seafood] Onset: 10-07-2019 05-05-2023 Episodic Coma; stupor; and brain damage (18 sources) Daytime somnolence; Translations: [Somnolence] Onset: 05-05-2023 05-05-2023 Episodic Coronary atherosclerosis and other heart disease (20 sources) Patient post percutaneous transluminal coronary angioplasty; Translations: [Coronary angioplasty status] Onset: 05-04-2022 05-05-2023 Episodic Diabetes mellitus with complications (20 sources) Renal disorder due to type 2 diabetes mellitus; Translations: [Type 2 diabetes mellitus with other diabetic kidney complication] Onset: 10-24-2019 Resolved: 03-20-2024 03-20-2024 Chronic Genitourinary symptoms and ill-defined conditions (20 sources) Proteinuria; Translations: [Proteinuria, unspecified] Onset: 05-05-2023 05-05-2023 Episodic Mood disorders (8 sources) Mood disorders Onset: 02-25-2025 02-25-2025 Nausea and vomiting (18 sources) Nausea and vomiting; Translations: [Nausea with vomiting, unspecified] Onset: 05-05-2023 05-05-2023 Episodic Nonspecific chest pain (18 sources) Chest pain; Translations: [Chest pain, unspecified] Onset: 05-23-2018 05-10-2023 Episodic Other acquired deformities (18 sources) Lumbar spondylolisthesis; Translations: [Spondylolisthesis, lumbar region] Onset: 05-05-2023 05-05-2023 Episodic Other aftercare (1 source) ad terminal makeup operator (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; Translations: [SHELTER CURRNT USE ANTICOAGULANTS] Onset: 02-10-2022 Episodic Other aftercare (18 sources) 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; Translations: [ad terminal makeup operator (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] Onset: 01-04-2023 05-10-2023 [...] Onset: 02-25-2022 Episodic Other connective tissue disease (19 sources) Fibromyalgia; Translations: [Fibromyalgia] Onset: 05-05-2023 05-05-2023 Episodic Other connective tissue disease (18 sources) Muscle pain; Translations: [Myalgia, unspecified site] Onset: 05-05-2023 05-05-2023 Episodic Other connective tissue disease (18 sources) Fibromyositis; Translations: [Fibromyalgia] Onset: 05-23-2018 05-10-2023 Episodic Other connective tissue disease (18 sources) Neurogenic claudication; Translations: [Other symptoms and [...] Episodic Other diseases of veins and lymphatics (18 sources) Peripheral venous insufficiency; Translations: [Venous insufficiency (chronic) (peripheral)] Onset: 05-05-2023 05-05-2023 Episodic Other lower respiratory disease (5 sources) Shortness of breath; Translations: [SHORTNESS OF BREATH] Onset: 01-31-2022 Episodic Other screening for suspected conditions (not mental disorders or infectious disease) (18 sources) Cardiovascular stress test abnormal; Translations: [Abnormal result of other cardiovascular function study] Onset: 05-23-2018 05-10-2023 Episodic Other upper respiratory infections (18 sources) Sinusitis; Translations: [Chronic sinusitis, unspecified] Onset: 04-30-2020 Resolved: 04-03-2025 05-10-2023 Chronic Phlebitis; thrombophlebitis and thromboembolism (20 sources) History of thromboembolism of vein; Translations: [Personal history of other venous thrombosis and embolism] Onset: 03-31-2021 05-10-2023 Episodic Pulmonary heart disease (20 sources) Personal history of pulmonary embolism; Translations: [Infarction of lung due to embolus] Onset: 05-17-2021 05-05-2023 Episodic Residual codes; unclassified (20 sources) Nicotine user; Translations: [Tobacco use] Onset: 02-27-2019 11-23-2023 Episodic Residual codes; unclassified (18 sources) Other specified health status; Translations: [Other drug allergy] Onset: 05-05-2023 05-05-2023 Episodic Residual codes; unclassified (20 sources) Localized edema; Translations: [Localized edema] Onset: 10-04-2023 10-04-2023 Episodic Spondylosis; intervertebral disc disorders; other back problems (20 sources) Spinal stenosis of lumbar region; Translations: [Spinal stenosis, lumbar region with neurogenic claudication] Onset: 05-05-2023 05-05-2023 Episodic Results Test Name Value Interpretation Reference Range Facility Basic Metabolic Panelon 03-19 Anion gap [Moles/Vol] 10.5 mmol/L Normal 6.0-15.0 [facility] Comment on above: Performed By: #### B MP, CBC ####[address] Calcium [Mass/Vol] 8.5 mg/dL Low 8.6-10.3 [facility] Comment on above: Performed By: #### B MP, CBC ####[address] Chloride [Moles/Vol] 103 mmol/L Normal 98-107 [facility] Comment on above: Performed By: #### B MP, CBC ####[place] [id number] [facility] CO2 [Moles/Vol] 27.0 mmol/L Normal 21.0-31.0 [facility] Comment on above: Performed By: #### B MP, CBC ####[place] [id number] [facility] Creatinine [Mass/Vol] 4.15 mg/dL High 0.60-1.20 [facility] Comment on above: Performed By: #### B MP, CBC ####[place] [id number] [place] Creatinine Clr Calc Pharmacy 10.14 Normal [facility] Comment on above: Result Comment: PERF ORMED BY: [facility] [address] [place] [id number] PATHOLOGIST SPRING WINDER ELIZABETH MOREL M.D. Performed By: #### B MP, CBC ####[place] [id number] [place] GFR/1.73 sq M.predicted MDRD (S/P/Bld) [Vol rate/Area] 10.650 mL/min/{1.73_m2} Normal [facility] Comment on above: Performed By: #### B MP, CBC ####[place] [id number] [facility] Glucose [Mass/Vol] 136 mg/dL High 70-100 [facility] Comment on above: Result Comment: [facility] Glucose Reference Range is dependent on time and content of last meal. Glucose of more than 200 mg/dL in a nonstressed, ambulatory subject supports the diagnosis of Diabetes Mellitus. ADA recommended reference range Performed By: #### B MP, CBC ####[address] [address] [facility] Potassium [Moles/Vol] 3.5 mmol/L Normal 3.5-5.1 [facility] Comment on above: Performed By: #### B MP, CBC ####[place] [id number] [place] Sodium [Moles/Vol] 137 mmol/L Normal 136-145 [facility] Comment on above: Performed By: #### B MP, CBC ####[place] [id number] [facility] Urea nitrogen [Mass/Vol] 61 mg/dL High 7-25 [facility] Comment on above: Performed By: #### B MP, CBC ####[address] [place] [address] [place] Complete Blood Count Auto Di ffon 04-11-2025 Basophils (Bld) [#/Vol] 0.0 10*3/uL Normal 0.0-0.2 [facility] Comment on above: Result Comment: PERF ORMED BY: [facility] [place] [address] PATHOLOGIST SPR[place] WINDER ELIZABETH MOREL M.D. Performed By: #### B MP, CBC ####[address] Basophils/100 WBC (Bld) 0.7 % Normal . [facility] Comment on above: Performed By: #### B MP, CBC ####[address] Eosinophils (Bld) [#/Vol] 0.2 10*3/uL Normal 0.0-0.45 [facility] Comment on above: Performed By: #### B MP, CBC ####[address] Eosinophils/100 WBC (Bld) 3.3 % Normal . [facility] Comment on above: Performed By: #### B MP, CBC ####[address] Erythrocyte distribution width (RBC) [Ratio] 16.4 % High 11.9-15.3 [facility] [facility] Comment on above: Performed By: #### B MP, CBC ####[address] Hematocrit (Bld) [Volume fraction] 27.2 % Low 34.0-46.4 [facility] Comment on above: Performed By: #### B MP, CBC ####[address] Hemoglobin (Bld) [Mass/Vol] 9.0 g/dL Low 11.8-15.4 [facility] Comment on above: Performed By: #### B MP, CBC ####[place] [id number] [place] Lymphocytes (Bld) [#/Vol] 0.8 10*3/uL Low 1.00-4.8 [facility] Comment on above: Performed By: #### B MP, CBC ####[address] Lymphocytes/100 WBC (Bld) 14.9 % Normal . [facility] Comment on above: Performed By: #### B MP, CBC ####[address] MCH (RBC) [Entitic mass] 29.1 pg Normal 24.7-34.3 [facility] Comment on above: Performed By: #### B MP, CBC ####[address] MCV (RBC) [Entitic vol] 88.3 fL Normal 80-100 [facility] Comment on above: Performed By: #### B MP, CBC ####[address] Mean Corpuscular HGB Conc 33.0 g/dL Normal 32.0-35.0 [facility] Comment on above: Performed By: #### B MP, CBC ####[address] Monocytes (Bld) [#/Vol] 0.5 10*3/uL Normal 0.0-0.8 [facility] Comment on above: Performed By: #### B MP, CBC ####[address] Monocytes/100 WBC (Bld) 9.1 % Normal . [facility] Comment on above: Performed By: #### B MP, CBC ####[address] Neutrophils (Bld) [#/Vol] 4.0 10*3/uL Normal 1.8-7.7 [facility] Comment on above: Performed By: #### B MP, CBC ####[address] [place] [address] [place] Neutrophils/100 WBC (Bld) 72.0 % Normal . [facility] Comment on above: Performed By: #### B MP, CBC ####[address] NRBC% 0.1 /100{WBC} Normal 0-0.5 [facility] Comment on above: Performed By: #### B MP, CBC ####[address] Platelet mean volume (Bld) [Entitic vol] 9.3 fL Normal 6.3-10.7 [facility] Comment on above: Performed By: #### B MP, CBC ####[address] Platelets (Bld) [#/Vol] 176 10*3/uL Normal 150-450 [facility] Comment on above: Performed By: #### B MP, CBC ####[address] RBC (Bld) [#/Vol] 3.09 10*6/uL Low 3.60-5.00 [facility] Comment on above: Performed By: #### B MP, CBC ####[address] WBC (Bld) [#/Vol] 5.6 10*3/uL Normal 3.8-11.6 [facility] Comment on above: Performed By: #### B MP, CBC ####[address] White Blood Count 5.6 [CFU]/mL Normal 3.8-11.6 [facility] Comment on above: Performed By: #### B MP, CBC ####[address] Basic Metabolic Panelon 07-2 Anion gap [Moles/Vol] 12.2 mmol/L Normal 6.0-15.0 [facility] Comment on above: Performed By: #### B MP #### [address] Calcium [Mass/Vol] 8.4 mg/dL Low 8.6-10.3 [facility] Comment on above: Performed By: #### B MP #### [address] Chloride [Moles/Vol] 106 mmol/L Normal 98-107 [facility] Comment on above: Performed By: #### B MP #### [address] CO2 [Moles/Vol] 25.2 mmol/L Normal 21.0-31.0 [facility] Comment on above: Performed By: #### B MP #### [address] Creatinine [Mass/Vol] 3.69 mg/dL High 0.60-1.20 [facility] Comment on above: Performed By: #### B MP #### [address] Creatinine Clr Calc Pharmacy 11.26 Normal [facility] Comment on above: Result Comment: PERF ORMED BY: [place] [address] PATHOLOGIST SPRING WINDER ELIZABETH MOREL M.D. Performed By: #### B MP #### [address] GFR/1.73 sq M.predicted MDRD (S/P/Bld) [Vol rate/Area] 12.263 mL/min/{1.73_m2} Normal [facility] Comment on above: Performed By: #### B MP #### [address] Glucose [Mass/Vol] 79 mg/dL Normal 70-100 [facility] Comment on above: Result Comment: [place] Glucose Reference Range is dependent on time and content of last meal. Glucose of more than 200 mg/dL in a nonstressed, ambulatory subject supports the diagnosis of Diabetes Mellitus. ADA recommended reference range Performed By: #### B MP #### [facility] [address] Potassium [Moles/Vol] 3.4 mmol/L Low 3.5-5.1 [facility] Comment on above: Performed By: #### B MP #### [facility] [address] Sodium [Moles/Vol] 140 mmol/L Normal 136-145 [facility] Comment on above: Performed By: #### B MP #### [address] Urea nitrogen [Mass/Vol] 62 mg/dL High 7-25 [facility] Comment on above: Performed By: #### B MP #### [address] Creatinine, Urine (Random)on 04-10-2025 Creatinine, Urine (Random) 61.00 mg/dL Normal [facility] Comment on above: Result Comment: No r eference range established Performed By: #### U CREA, URTP ####[address] Pathology Request for Lab Co rpon 04-10-2025 Pathology Request for Lab Carla Normal [facility] Comment on above: Order Comment: GI SP ECIMEN Result Comment: See report. Scanned copy available in EMR. PERFORMED BY: [place] [address] PATHOLOGIST SPRING WINDER ELIZABETH MOREL M.D. Performed By: #### P ATH TO [facility] ####[address] Total Protein, Urineon 04-10 Protein (U) [Mass/Vol] 67 mg/dL High 0-9 [facility] Comment on above: Result Comment: PERF ORMED BY: [place] [address] PATHOLOGIST SPRING WINDER ELIZABETH MOREL M.D. Performed By: #### U CREA, URTP ####[place] [address] Complete Blood Count Auto Di ffon 04-09-2025 Basophils (Bld) [#/Vol] 0.0 10*3/uL Normal 0.0-0.2 [facility] Comment on above: Result Comment: PERF ORMED BY: [facility] [address] [place] [address] PATHOLOGIST SPRING WINDER ELIZABETH MOREL M.D. Performed By: #### M G, PT, CMP, PHOS, CBC, PTT ####[address] Basophils/100 WBC (Bld) 1.0 % Normal . [facility] Comment on above: Performed By: #### M G, PT, CMP, PHOS, CBC, PTT ####[address] Eosinophils (Bld) [#/Vol] 0.2 10*3/uL Normal 0.0-0.45 [facility] Comment on above: Performed By: #### M G, PT, CMP, PHOS, CBC, PTT ####[address] Eosinophils/100 WBC (Bld) 4.2 % Normal . [facility] Comment on above: Performed By: #### M G, PT, CMP, PHOS, CBC, PTT ####[address] Erythrocyte distribution width (RBC) [Ratio] 16.3 % High 11.9-15.3 [facility] Comment on above: Performed By: #### M G, PT, CMP, PHOS, CBC, PTT ####[address] Hematocrit (Bld) [Volume fraction] 24.8 % Low 34.0-46.4 [facility] Comment on above: Performed By: #### M G, PT, CMP, PHOS, CBC, PTT ####[address] Hemoglobin (Bld) [Mass/Vol] 8.4 g/dL Low 11.8-15.4 [facility] Comment on above: Performed By: #### M G, PT, CMP, PHOS, CBC, PTT ####[address] Lymphocytes (Bld) [#/Vol] 1.2 10*3/uL Normal 1.00-4.8 [facility] Comment on above: Performed By: #### M G, PT, CMP, PHOS, CBC, PTT ####[address] Lymphocytes/100 WBC (Bld) 29.3 % Normal . [facility] Comment on above: Performed By: #### M G, PT, CMP, PHOS, CBC, PTT ####[address] MCH (RBC) [Entitic mass] 29.7 pg Normal 24.7-34.3 [facility] Comment on above: Performed By: #### M G, PT, CMP, PHOS, CBC, PTT ####[address] MCV (RBC) [Entitic vol] 88.2 fL Normal 80-100 [facility] Comment on above: Performed By: #### M G, PT, CMP, PHOS, CBC, PTT ####[address] Mean Corpuscular HGB Conc 33.7 g/dL Normal 32.0-35.0 [facility] Comment on above: Performed By: #### M G, PT, CMP, PHOS, CBC, PTT ####[address] Monocytes (Bld) [#/Vol] 0.5 10*3/uL Normal 0.0-0.8 [facility] Comment on above: Performed By: #### M G, PT, CMP, PHOS, CBC, PTT ####[address] Monocytes/100 WBC (Bld) 12.9 % Normal . [facility] Comment on above: Performed By: #### M G, PT, CMP, PHOS, CBC, PTT ####[address] Neutrophils (Bld) [#/Vol] 2.1 10*3/uL Normal 1.8-7.7 [facility] Comment on above: Performed By: #### M G, PT, CMP, PHOS, CBC, PTT ####[address] Neutrophils/100 WBC (Bld) 52.6 % Normal . [facility] Comment on above: Performed By: #### M G, PT, CMP, PHOS, CBC, PTT ####[address] NRBC% 0.1 /100{WBC} Normal 0-0.5 [facility] Comment on above: Performed By: #### M G, PT, CMP, PHOS, CBC, PTT ####[address] Platelet mean volume (Bld) [Entitic vol] 9.2 fL Normal 6.3-10.7 [facility] Comment on above: Performed By: #### M G, PT, CMP, PHOS, CBC, PTT ####[address] Platelets (Bld) [#/Vol] 188 10*3/uL Normal 150-450 [facility] Comment on above: Performed By: #### M G, PT, CMP, PHOS, CBC, PTT ####[address] RBC (Bld) [#/Vol] 2.81 10*6/uL Low 3.60-5.00 [facility] Comment on above: Performed By: #### M G, PT, CMP, PHOS, CBC, PTT ####[address] WBC (Bld) [#/Vol] 4.1 10*3/uL Normal 3.8-11.6 [facility] Comment on above: Performed By: #### M G, PT, CMP, PHOS, CBC, PTT ####[address] White Blood Count 4.1 [CFU]/mL Normal 3.8-11.6 [facility] Comment on above: Performed By: #### M G, PT, CMP, PHOS, CBC, PTT ####[address] Comprehensive Metabolic Pane cathleen 04-09-2025 Albumin [Mass/Vol] 3.3 g/dL Low 3.5-5.7 [facility] Comment on above: Performed By: #### M G, PT, CMP, PHOS, CBC, PTT ####[address] Albumin/Globulin [Mass ratio] 1.4 {ratio} Normal [facility] Comment on above: Performed By: #### M G, PT, CMP, PHOS, CBC, PTT ####[address] ALP [Catalytic activity/Vol] 29 U/L Low 34-104 [facility] Comment on above: Performed By: #### M G, PT, CMP, PHOS, CBC, PTT ####[address] ALT [Catalytic activity/Vol] 4 U/L Low 7-52 [facility] Comment on above: Performed By: #### M G, PT, CMP, PHOS, CBC, PTT ####[address] Anion gap [Moles/Vol] 11.2 mmol/L Normal 6.0-15.0 [facility] Comment on above: Performed By: #### M G, PT, CMP, PHOS, CBC, PTT ####[address] AST [Catalytic activity/Vol] 17 U/L Normal 13-39 [facility] Comment on above: Performed By: #### M G, PT, CMP, PHOS, CBC, PTT ####[address] Bilirubin [Mass/Vol] 0.5 mg/dL Normal 0.3-1.0 [facility] Comment on above: Performed By: #### M G, PT, CMP, PHOS, CBC, PTT ####[address] Calcium [Mass/Vol] 8.2 mg/dL Low 8.6-10.3 [facility] Comment on above: Performed By: #### M G, PT, CMP, PHOS, CBC, PTT ####[address] Chloride [Moles/Vol] 105 mmol/L Normal 98-107 [facility] Comment on above: Performed By: #### M G, PT, CMP, PHOS, CBC, PTT ####[address] CO2 [Moles/Vol] 26.6 mmol/L Normal 21.0-31.0 [facility] Comment on above: Performed By: #### M G, PT, CMP, PHOS, CBC, PTT ####[address] Creatinine [Mass/Vol] 3.53 mg/dL High 0.60-1.20 [facility] Comment on above: Performed By: #### M G, PT, CMP, PHOS, CBC, PTT ####[address] Creatinine Clr Calc Pharmacy 11.77 Normal [facility] Comment on above: Performed By: #### M G, PT, CMP, PHOS, CBC, PTT ####[address] GFR/1.73 sq M.predicted MDRD (S/P/Bld) [Vol rate/Area] 12.933 mL/min/{1.73_m2} Normal [facility] Comment on above: Performed By: #### M G, PT, CMP, PHOS, CBC, PTT ####[address] Globulin (S) [Mass/Vol] 2.4 g/dL Normal [facility] Comment on above: Performed By: #### M G, PT, CMP, PHOS, CBC, PTT ####[address] Glucose [Mass/Vol] 77 mg/dL Normal 70-100 [facility] Comment on above: Result Comment: [facility] Glucose Reference Range is dependent on time and content of last meal. Glucose of more than 200 mg/dL in a nonstressed, ambulatory subject supports the diagnosis of Diabetes Mellitus. ADA recommended reference range Performed By: #### M G, PT, CMP, PHOS, CBC, PTT ####[address] Potassium [Moles/Vol] 3.8 mmol/L Normal 3.5-5.1 [facility] Comment on above: Performed By: #### M G, PT, CMP, PHOS, CBC, PTT ####[address] Protein [Mass/Vol] 5.7 g/dL Low 6.4-8.9 [facility] Comment on above: Performed By: #### M G, PT, CMP, PHOS, CBC, PTT ####[address] Sodium [Moles/Vol] 139 mmol/L Normal 136-145 [facility] Comment on above: Performed By: #### M G, PT, CMP, PHOS, CBC, PTT ####[address] Urea nitrogen [Mass/Vol] 64 mg/dL High 7-25 [facility] Comment on above: Performed By: #### M G, PT, CMP, PHOS, CBC, PTT ####[facility] [id number] [place] [address] [facility] echo transthoracicon [facility] echo transthoracic [facility] [address] [place] [address] Echocardiogram Signed Patient: Marleni Dennis MR#: [id number] : 1950 Acct:[id number] Age/Sex: 74 / F ADM Date: 04/08/25 Loc: Room: [address] [place] [address] Type: ADM IN Attending Dr: Nick Antonio MD Ordering Provider: Rajiv Trejo MD Date of Service: 04/08/25 [facility] echo transthoracic: fluid overalod, fr/o chf Copies [...] on (more content not included)... Normal [facility] Magnesiumon 04-09-2025 Magnesium [Mass/Vol] 1.1 mg/dL Low 1.9-2.7 [facility] Comment on above: Result Comment: PERF ORMED BY: [place] [id number] PATHOLOGIST SPRING WINDER ELIZABETH MOREL M.D. Performed By: #### M G, PT, CMP, PHOS, CBC, PTT ####[place] [id number] [facility] Partial Thromboplastin Timeo n 04-09-2025 aPTT Coag (Bld) [Time] 31.2 s Normal 25.1-36.5 [facility] Comment on above: Result Comment: A he matocrit value greater than 55% may lead to inaccurate results in coagulation testing. Patients having hematocrit values >55% require a special collection tube for coagulation studies. Please contact the laboratory at [phone] for redraw instructions. PERFORMED BY: [address] [id number] PATHOLOGIST SPRING WINDER ELIZABETH MOREL M.D. Performed By: #### M G, PT, CMP, PHOS, CBC, PTT ####[place] [id number] [facility] Phosphoruson 04-09-2025 Phosphate [Mass/Vol] 3.2 mg/dL Normal 2.5-4.5 [facility] Comment on above: Performed By: #### M G, PT, CMP, PHOS, CBC, PTT ####[place] [id number] [facility] Prothrombin Time INRon 04-09 INR Coag (PPP) [Relative time] 1.3 {INR} Normal [facility] Comment on above: Result Comment: [...] M G, PT, CMP, PHOS, CBC, PTT ####[place] [id number] [address] PT Coag (PPP) [Time] 15.2 s High 9.0-12.9 [facility] Comment on above: Result Comment: A he matocrit value greater than 55% may lead to inaccurate results in coagulation testing. Patients having hematocrit values >55% require a special collection tube for coagulation studies. Please contact the laboratory at [phone] for redraw instructions. Performed By: #### M G, PT, CMP, PHOS, CBC, PTT ####[place] [id number] [address] Alanine aminotransferase [En zymatic activity/volume] in Serum or PlasmaOrdered By: Sohail Figueroa on 04-08-2025 ALT [Catalytic activity/Vol] 6 U/L Low 7-52 [facility] Comment on above: Performed By: #### P T, PTT, LIPASE, CMP, HS TROP, CBC #### [address] Albumin [Mass/volume] in Ser um or Plasma by Bromocresol green (BCG) dye binding methoOrdered By: Sohail Figueroa on 04-08-2025 Albumin BCG dye [Mass/Vol] 4.1 g/dL 3.5-5.7 [facility] Alkaline phosphatase [Enzyma tic activity/volume] in Serum or PlasmaOrdered By: Sohail Figueroa on 04-08-2025 ALP [Catalytic activity/Vol] 38 U/L Normal 34-104 [facility] Comment on above: Performed By: #### P T, PTT, LIPASE, CMP, HS TROP, CBC #### [address] Appearance of UrineOrdered B y: Sohail Figueroa on 04-08-2025 Appearance (U) Clear Normal Clear [facility] Comment on above: Order Comment: Name Collection Type:: Clean-Voided Midstream Performed By: #### A DDONUAPLUS ####[address] Aspartate aminotransferase [ Enzymatic activity/volume] in Serum or PlasmaOrdered By: Sohail Figueroa on 04-08-2025 AST [Catalytic activity/Vol] 22 U/L Normal 13-39 [facility] Comment on above: Performed By: #### P T, PTT, LIPASE, CMP, HS TROP, CBC #### [facility] [address] BNP ser/plasOrdered By: Desirae Figueroa on 04-08-2025 Natriuretic peptide B (Bld) [Mass/Vol] 1455.0 pg/mL High 5-100 [facility] Comment on above: Result Comment: PERF ORMED BY: [place] [address] PATHOLOGIST SPRING WINDER ELIZABETH MOREL M.D. Performed By: #### B MOTOR POOL CLERK ####[address] Bacteria [Presence] in Urine by AutomatedOrdered By: Sohail Figueroa on 04-08-2025 Bacteria Auto Ql (U) None seen [HPF] None Seen [facility] Basophils [#/volume] in Bloo d by Automated countOrdered By: Sohail Figueroa on 04-08-2025 Basophils (Bld) [#/Vol] 0.0 10*3/uL Normal 0.0-0.2 [facility] Comment on above: Result Comment: PERF ORMED BY: [facility] [address] [place] [address] PATHOLOGIST SPRING WINDER ELIZABETH MOREL M.D. Performed By: #### P T, PTT, LIPASE, CMP, HS TROP, CBC #### [facility] [address] [place] [id number] [place] Basophils/100 leukocytes in Blood by Automated countOrdered By: Sohail Figueroa on 04-08-2025 Basophils/100 WBC (Bld) 1.0 % Normal . [facility] Comment on above: Performed By: #### P T, PTT, LIPASE, CMP, HS TROP, CBC #### [facility] [address] Bilirubin Test strip Ql (U)O rdered By: Sohail Figueroa on 04-08-2025 Bilirubin Ql (U) Negative Negative [facility] Bilirubin.total [Mass/volume ] in Serum or PlasmaOrdered By: Sohail Figueroa on 04-08-2025 Bilirubin [Mass/Vol] 0.6 mg/dL Normal 0.3-1.0 [facility] Comment on above: Performed By: #### P T, PTT, LIPASE, CMP, HS TROP, CBC #### [facility] [address] abdomen pelvis wo conon 0 04-08-2025 CT abdomen pelvis wo con [facility] Main [place] [address] [place] [address] CT Scan Report Signed Patient: Marleni Dennis MR#: [id number] : 1950 Acct:[id number] Age/Sex: 74 / F ADM Date: 04/08/25 Loc: ER Room: Type: [facility] ER Attending Dr: Copies to: Sohail Figueroa [...] Garnett M.D. 04/08/2025 8:27 PM Dictation Location: [place] [address] Transcribed By: [facility] 04/08/252026 Dictated By: Derek Garnett DO 04/08/252018 Signed By: 04/08/252026 Normal [facility] Calcium [Mass/volume] in Ser um or PlasmaOrdered By: Sohail Figueroa on 04-08-2025 Calcium [Mass/Vol] 9.1 mg/dL Normal 8.6-10.3 [facility] Comment on above: Performed By: #### P T, PTT, LIPASE, CMP, HS TROP, CBC #### [facility] [address] Carbon dioxide, total [Moles /volume] in Serum or PlasmaOrdered By: Sohail Figueroa on 04-08-2025 CO2 [Moles/Vol] 25.2 mmol/L Normal 21.0-31.0 [facility] Comment on above: Performed By: #### P T, PTT, LIPASE, CMP, HS TROP, CBC #### [facility] [address] [place] [address] [place] Chloride [Moles/volume] in S brian or PlasmaOrdered By: Sohail Figueroa on 04-08-2025 Chloride [Moles/Vol] 101 mmol/L Normal 98-107 [facility] Comment on above: Performed By: #### P T, PTT, LIPASE, CMP, HS TROP, CBC #### [address] Color of Urine by AutoOrdere d By: Sohail Figueroa on 04-08-2025 Color (U) Light-yellow Normal Yellow [facility] Comment on above: Order Comment: Name Collection Type:: Clean-Voided Midstream Performed By: #### A DDONUAPLUS ####[facility] Complete Blood Count Auto Di ffon 04-08-2025 Mean Corpuscular HGB Conc 34.0 g/dL Normal 32.0-35.0 [facility] Comment on above: Performed By: #### P T, PTT, LIPASE, CMP, HS TROP, CBC #### [address] Monocytes/100 WBC (Bld) 17.55 % Normal 0.00-20.00 [facility] Comment on above: Performed By: #### P T, PTT, LIPASE, CMP, HS TROP, CBC #### [address] NRBC% 0.1 /100{WBC} Normal 0-0.5 [facility] Comment on above: Performed By: #### P T, PTT, LIPASE, CMP, HS TROP, CBC #### [address] White Blood Count 4.4 [CFU]/mL Normal 3.8-11.6 [facility] Comment on above: Performed By: #### P T, PTT, LIPASE, CMP, HS TROP, CBC #### [address] Comprehensive Metabolic Pane cathleen 04-08-2025 Albumin [Mass/Vol] 4.1 g/dL Normal 3.5-5.7 [facility] Comment on above: Performed By: #### P T, PTT, LIPASE, CMP, HS TROP, CBC #### [address] Creatinine Clr Calc Pharmacy 12.34 Normal [facility] Comment on above: Performed By: #### P T, PTT, LIPASE, CMP, HS TROP, CBC #### [facility] [address] GFR/1.73 sq M.predicted MDRD (S/P/Bld) [Vol rate/Area] 13.433 mL/min/{1.73_m2} Normal [facility] Comment on above: Performed By: #### P T, PTT, LIPASE, CMP, HS TROP, CBC #### [facility] [address] Creatinine [Mass/volume] in Serum or PlasmaOrdered By: Sohail Figueroa on 04-08-2025 Creatinine [Mass/Vol] 3.42 mg/dL High 0.60-1.20 [facility] Comment on above: Performed By: #### P T, PTT, LIPASE, CMP, HS TROP, CBC #### [address] Dipstick and Microscopicon 0 04-08-2025 Bacteria,Urine None Seen Normal None Seen [facility] Comment on above: Order Comment: Name Collection Type:: Clean-Voided Midstream Performed By: #### A DDONUAPLUS ####[place] [id number] [address] Bilirubin,Urine Negative Normal Negative [facility] Comment on above: Order Comment: Name Collection Type:: Clean-Voided Midstream Performed By: #### A DDONUAPLUS ####[address] Glucose Ql (U) Normal Normal Normal [facility] Comment on above: Order Comment: Name Collection Type:: Clean-Voided Midstream Performed By: #### A DDONUAPLUS ####[address] Hyaline Casts,Urine None Normal 0-8 [facility] Comment on above: Order Comment: Name Collection Type:: Clean-Voided Midstream Result Comment: PERF ORMED BY: [place] [address] PATHOLOGIST SPRING WINDER ELIZABETH MOREL M.D. Performed By: #### A DDONUAPLUS ####[address] [address] [place] Nitrite,Urine Negative Normal Negative [facility] Comment on above: Order Comment: Name Collection Type:: Clean-Voided Midstream Performed By: #### A DDONUAPLUS ####[address] [address] [facility] Occult Blood,Urine Negative Normal Negative [facility] Comment on above: Order Comment: Name Collection Type:: Clean-Voided Midstream Result Comment: PERF ORMED BY: [facility] [address] [facility] [place] [address] PATHOLOGIST SPRING WINDER ELIZABETH MOREL M.D. Performed By: #### A DDONUAPLUS ####[address] [address] [facility] RBC,Urine 1-2 Normal 0-4 [facility] Comment on above: Order Comment: Name Collection Type:: Clean-Voided Midstream Performed By: #### A DDONUAPLUS ####[address] [address] [facility] Specificy [place],Urine 1.006 Normal 1.001-1.03 0 [facility] Comment on above: Order Comment: Name Collection Type:: Clean-Voided Midstream Performed By: #### A DDONUAPLUS ####[address] [address] [facility] Urobilinogen,Urine Normal Normal Normal [facility] Comment on above: Order Comment: Name Collection Type:: Clean-Voided Midstream Performed By: #### A DDONUAPLUS ####[address] [address] [place] WBC,Urine 1-2 Normal 0-4 [facility] Comment on above: Order Comment: Name Collection Type:: Clean-Voided Midstream Performed By: #### A DDONUAPLUS ####[address] [address] [facility] ECG 12 lead ECGon 04-08-2025 ECG 12 lead ECG [facility] [place] [address] [place] [address] Electrocardiograph Report Signed Patient: Marleni Dennis MR#: [id number] : 1950 Acct:[id number] Age/Sex: 74 / F ADM Date: 04/08/25 Loc: Room: [address] [place] [address] Type: ADM IN Attending Dr: Rajiv Trejo [...] fascicular block Confirmed by Evette Mari MD ([id number]) on 04/09/2025 7:24:05 AM Referred By: Electronically Signed By: Evette Mari MD Transcribed By: MUS Signed By Evette Mari MD 03/19 12/10 07 Normal [facility] Eosinophils [#/volume] in Bl ood by Automated countOrdered By: Sohail Figueroa on 04-08-2025 Eosinophils (Bld) [#/Vol] 0.1 10*3/uL Normal 0.0-0.45 [facility] Comment on above: Performed By: #### P T, PTT, LIPASE, CMP, HS TROP, CBC #### [facility] [address] [place] [address] [place] Eosinophils/100 leukocytes i n Blood by Automated countOrdered By: Sohali Figueroa on 04-08-2025 Eosinophils/100 WBC (Bld) 2.6 % Normal . [facility] Comment on above: Performed By: #### P T, PTT, LIPASE, CMP, HS TROP, CBC #### [facility] [address] [place] [address] [place] Epithelial cells.squamous [# /area] in Urine sediment by Automated countOrdered By: Sohail Figueroa on 04-08-2025 Epithelial cells.squamous Auto (Urine sed) [#/Area] N/A [facility] Erythrocyte distribution wid th [Ratio] by Automated countOrdered By: Sohail Figueroa on 04-08-2025 Erythrocyte distribution width (RBC) [Ratio] 16.0 % High 11.9-15.3 [facility] Comment on above: Performed By: #### P T, PTT, LIPASE, CMP, HS TROP, CBC #### [facility] [address] [place] [id number] [place] Erythrocytes [#/area] in Uri ne sediment by Automated countOrdered By: Sohail Figueroa on 04-08-2025 RBC Auto (Urine sed) [#/Area] 1-2 [HPF] 0-4 [facility] Erythrocytes [#/volume] in B lood by Automated countOrdered By: Sohail Figueroa on 04-08-2025 RBC (Bld) [#/Vol] 3.34 10*6/uL Low 3.60-5.00 [facility] Comment on above: Performed By: #### P T, PTT, LIPASE, CMP, HS TROP, CBC #### [facility] [address] [place] [id number] [place] Glucose [Mass/volume] in Ser um or PlasmaOrdered By: Sohail Figueroa on 04-08-2025 Glucose [Mass/Vol] 110 mg/dL High 70-100 [facility] Comment on above: ADA recommended refe rence rangeRandom Glucose Reference Range is dependent on time and content of last meal. Glucose of more than 200 mg/dL in a nonstressed, ambulatory subject supports the diagnosis of Diabetes Mellitus. Result Comment: [place] Glucose Reference Range is dependent on time and content of last meal. Glucose of more than 200 mg/dL in a nonstressed, ambulatory subject supports the diagnosis of Diabetes Mellitus. ADA recommended reference range Performed By: #### P T, PTT, LIPASE, CMP, HS TROP, CBC #### [facility] [address] [place] [id number] [place] Glucose [Mass/volume] in Uri ne by Test stripOrdered By: Sohail Figueroa on 04-08-2025 Glucose Test strip (U) [Mass/Vol] Normal mg/dL Normal [facility] Hematocrit [Volume Fraction] of Blood by Automated countOrdered By: Sohail Figueroa on 04-08-2025 Hematocrit (Bld) [Volume fraction] 29.5 % Low 34.0-46.4 [facility] Comment on above: Performed By: #### P T, PTT, LIPASE, CMP, HS TROP, CBC #### [facility] [address] Hemoglobin Test strip Ql (U) Ordered By: Sohail Figueroa on 04-08-2025 Hemoglobin Ql (U) Negative Negative [facility] Hemoglobin [Mass/volume] in BloodOrdered By: Sohail Figueroa on 04-08-2025 Hemoglobin (Bld) [Mass/Vol] 10.0 g/dL Low 11.8-15.4 [facility] Comment on above: Performed By: #### P T, PTT, LIPASE, CMP, HS TROP, CBC #### [facility] [address] Hyaline casts [#/area] in Ur ine sediment by Automated countOrdered By: Sohail Figueroa on 04-08-2025 Hyaline casts Auto (Urine sed) [#/Area] None [LPF] 0-8 [facility] INR in Platelet poor plasma by Coagulation assayOrdered By: Sohail Figueroa on 04-08-2025 INR Coag (PPP) [Relative time] 1.4 {INR} Normal [facility] Comment on above: INR Therapeutic [...] PTT, LIPASE, CMP, HS TROP, CBC #### [facility] [address] [place] [address] [place] Ketones [Presence] in Urine by Test stripOrdered By: Sohail Figueroa on 04-08-2025 Ketones Ql (U) Negative Normal Negative [facility] Comment on above: Order Comment: Name Collection Type:: Clean-Voided Midstream Performed By: #### A DDONUAPLUS ####[facility] Leukocyte esterase [Presence ] in Urine by Test stripOrdered By: Sohail Figueroa on 04-08-2025 Leukocyte esterase Test strip Ql (U) Negative Normal Negative [facility] Comment on above: Order Comment: Name Collection Type:: Clean-Voided Midstream Performed By: #### A DDONUAPLUS ####[place] [id number] [address] Leukocytes [#/area] in Urine sediment by Automated countOrdered By: Sohail Figueroa on 04-08-2025 WBC Auto (Urine sed) [#/Area] 1-2 [HPF] 0-4 [facility] Leukocytes [#/volume] correc mare for nucleated erythrocytes in Blood by Automated counOrdered By: Sohail Figueroa on 04-08-2025 WBC corrected for nucl RBC Auto (Bld) [#/Vol] 4.4 10*3/uL 3.8-11.6 [facility] Leukocytes [#/volume] in Blo od by Automated countOrdered By: Sohail Figueroa on 04-08-2025 WBC (Bld) [#/Vol] 4.4 10*3/uL Normal 3.8-11.6 [facility] Comment on above: Performed By: #### P T, PTT, LIPASE, CMP, HS TROP, CBC #### [facility] [address] [place] [address] [place] Lipase [Enzymatic activity/v olume] in Serum or PlasmaOrdered By: Sohail Figueroa on 04-08-2025 Lipase [Catalytic activity/Vol] 110.0 U/L High 11.0-82.0 [facility] Comment on above: Result Comment: PERF ORMED BY: [place] [address] PATHOLOGIST SPRING WINDER ELIZABETH MOREL M.D. Performed By: #### P T, PTT, LIPASE, CMP, HS TROP, CBC #### [address] Lymphocytes [#/volume] in Bl ood by Automated countOrdered By: Sohail Figueroa on 04-08-2025 Lymphocytes (Bld) [#/Vol] 1.0 10*3/uL Normal 1.00-4.8 [facility] Comment on above: Performed By: #### P T, PTT, LIPASE, CMP, HS TROP, CBC #### [address] Lymphocytes/100 leukocytes i n Blood by Automated countOrdered By: Sohail Figueroa on 04-08-2025 Lymphocytes/100 WBC (Bld) 23.3 % Normal . [facility] Comment on above: Performed By: #### P T, PTT, LIPASE, CMP, HS TROP, CBC #### [address] MCH [Entitic mass] by Automa mare countOrdered By: Sohail Figueroa on 04-08-2025 MCH (RBC) [Entitic mass] 30.1 pg Normal 24.7-34.3 [facility] Comment on above: Performed By: #### P T, PTT, LIPASE, CMP, HS TROP, CBC #### [address] MCHC Auto (RBC) [Mass/Vol]Or dered By: Sohail Figueroa on 04-08-2025 MCHC (RBC) [Mass/Vol] 34.0 g/dL 32.0-35.0 [facility] MCV [Entitic volume] by Auto mated countOrdered By: Sohail Figueroa on 04-08-2025 MCV (RBC) [Entitic vol] 88.4 fL Normal 80-100 [facility] Comment on above: Performed By: #### P T, PTT, LIPASE, CMP, HS TROP, CBC #### [address] [place] [address] [place] Monocyte distribution width [Entitic volume] in Blood by AutomatedOrdered By: Sohail Figueroa on 04-08-2025 Monocyte distribution width Auto (Bld) [Entitic vol] 17.55 % 0.00-20.00 [facility] Monocytes [#/volume] in Bloo d by Automated countOrdered By: Sohail Figueroa on 04-08-2025 Monocytes (Bld) [#/Vol] 0.4 10*3/uL Normal 0.0-0.8 [facility] Comment on above: Performed By: #### P T, PTT, LIPASE, CMP, HS TROP, CBC #### [place] [address] [place] Monocytes/100 leukocytes in Blood by Automated countOrdered By: Sohail Figueroa on 04-08-2025 Monocytes/100 WBC (Bld) 10.0 % Normal . [facility] Comment on above: Performed By: #### P T, PTT, LIPASE, CMP, HS TROP, CBC #### [place] [address] [place] Neutrophils [#/volume] in Bl ood by Automated countOrdered By: Sohail Figueroa on 04-08-2025 Neutrophils (Bld) [#/Vol] 2.8 10*3/uL Normal 1.8-7.7 [facility] Comment on above: Performed By: #### P T, PTT, LIPASE, CMP, HS TROP, CBC #### [place] [address] [place] Neutrophils/100 leukocytes i n Blood by Automated countOrdered By: Sohail Figueroa on 04-08-2025 Neutrophils/100 WBC (Bld) 63.1 % Normal . [facility] Comment on above: Performed By: #### P T, PTT, LIPASE, CMP, HS TROP, CBC #### [place] [address] [place] Nitrite Test strip Ql (U)Ord ered By: Sohail Figueroa on 04-08-2025 Nitrite Ql (U) Negative Negative [facility] No Panel InformationOrdered By: Sohail Figueroa on 04-08-2025 Estimated GFR (CKD-EPI) 13.433 mL/Min [facility] Creatinine Clearance (Chem 12.34 [facility] Nucleated erythrocytes [Pres ence] in Blood by Automated countOrdered By: Sohail Figueroa on 04-08-2025 Nucleated RBC Auto Ql (Bld) 0.1 /100{WBC} 0-0.5 [facility] Partial Thromboplastin Timeo n 04-08-2025 aPTT Coag (Bld) [Time] 31.6 s Normal 25.1-36.5 [facility] Comment on above: Result Comment: A he matocrit value greater than 55% may lead to inaccurate results in coagulation testing. Patients having hematocrit values >55% require a special collection tube for coagulation studies. Please contact the laboratory at [phone] for redraw instructions. PERFORMED BY: [place] [address] PATHOLOGIST SPRING WINDER ELIZABETH MOREL M.D. Performed By: #### P T, PTT, LIPASE, CMP, HS TROP, CBC #### [facility] [address] [place] [address] [place] Platelet mean volume [Entiti c volume] in Blood by Automated countOrdered By: Sohail Figueroa on 04-08-2025 Platelet mean volume (Bld) [Entitic vol] 9.5 fL Normal 6.3-10.7 [facility] Comment on above: Performed By: #### P T, PTT, LIPASE, CMP, HS TROP, CBC #### [facility] [address] [place] [address] [place] Platelets [#/volume] in Bloo d by Automated countOrdered By: Sohail Figueroa on 04-08-2025 Platelets (Bld) [#/Vol] 211 10*3/uL Normal 150-450 [facility] Comment on above: Performed By: #### P T, PTT, LIPASE, CMP, HS TROP, CBC #### [facility] [address] [place] [address] [place] Potassium [Moles/volume] in Serum or PlasmaOrdered By: Sohail Figueroa on 04-08-2025 Potassium [Moles/Vol] 4.3 mmol/L Normal 3.5-5.1 [facility] Comment on above: Performed By: #### P T, PTT, LIPASE, CMP, HS TROP, CBC #### [facility] [address] Protein [Mass/volume] in Ser um or PlasmaOrdered By: Sohail Figueroa on 04-08-2025 Protein [Mass/Vol] 7.1 g/dL Normal 6.4-8.9 [facility] Comment on above: Performed By: #### P T, PTT, LIPASE, CMP, HS TROP, CBC #### [facility] [address] Protein [Mass/volume] in Uri ne by Test stripOrdered By: Sohail Figueroa on 04-08-2025 Protein (U) [Mass/Vol] 50 mg/dL Normal Negative [facility] Comment on above: Order Comment: Name Collection Type:: Clean-Voided Midstream Performed By: #### A DDONUAPLUS ####[facility] [place] [id number] [facility] Prothrombin time (PT)Ordered By: Sohail Figueroa on 04-08-2025 PT Coag (PPP) [Time] 16.2 s High 9.0-12.9 [facility] Comment on above: A hematocrit value g reater than 55% may lead to inaccurate results in coagulation testing. Patients having hematocrit values >55% require a special collection tube for coagulation studies. Please contact the laboratory at [phone] for redraw instructions. Result Comment: A he matocrit value greater than 55% may lead to inaccurate results in coagulation testing. Patients having hematocrit values >55% require a special collection tube for coagulation studies. Please contact the laboratory at [phone] for redraw instructions. Performed By: #### P T, PTT, LIPASE, CMP, HS TROP, CBC #### [facility] [address] [place] [id number] [facility] Serum globulin measurement b y calculation (mass/volume)Ordered By: Sohail Figueroa on 04-08-2025 Globulin (S) [Mass/Vol] 3.0 g/dL Normal [facility] Comment on above: Performed By: #### P T, PTT, LIPASE, CMP, HS TROP, CBC #### [address] Serum or plasma albumin/glob ulin mass ratioOrdered By: Sohail Figueroa on 04-08-2025 Albumin/Globulin [Mass ratio] 1.4 {ratio} Normal [facility] Comment on above: Performed By: #### P T, PTT, LIPASE, CMP, HS TROP, CBC #### [address] Serum or plasma anion gap de terminationOrdered By: Sohail Figueroa on 04-08-2025 Anion gap [Moles/Vol] 15.1 mmol/L High 6.0-15.0 [facility] Comment on above: Performed By: #### P T, PTT, LIPASE, CMP, HS TROP, CBC #### [address] Sodium [Moles/volume] in Ser um or PlasmaOrdered By: Sohail Figueroa on 04-08-2025 Sodium [Moles/Vol] 137 mmol/L Normal 136-145 [facility] Comment on above: Performed By: #### P T, PTT, LIPASE, CMP, HS TROP, CBC #### [address] Specific gravity Test strip (U) [Rel density]Ordered By: Sohail Figueroa on 04-08-2025 Specific gravity (U) [Rel density] 1.006 1.001-1.03 0 [facility] Troponin I High Sensitivityo n 04-08-2025 Troponin I High Sensitivity 25 High 0-15 [facility] Comment on above: Result Comment: The Troponin units of report have been changed to meet the Chest Pain Accreditation requirement, element EC5.M1l2. Troponin units are changed from pg/ml to ng/L. Also, the decimal is removed and results are in whole numbers. PERFORMED BY: [place] [address] PATHOLOGIST SPRING WINDER ELIZABETH MOREL M.D. Performed By: #### P T, PTT, LIPASE, CMP, HS TROP, CBC #### [facility] [address] [place] [id number] [facility] Troponin I.cardiac [Mass/vol ume] in Serum or Plasma by Detection limit <= 0.01 ng/mLOrdered By: Sohail Figueroa on 04-08-2025 Troponin I.cardiac DL <= 0.01 ng/mL [Mass/Vol] 25 ng/L High 0-15 [facility] Comment on above: The Troponin units o f report have been changed to meet the Chest Pain Accreditation requirement, element EC5.M1l2. Troponin units are changed from pg/ml to ng/L. Also, the decimal is removed and results are in whole numbers. Type and Screenon 04-08-2025 ABO and Rh group Nom (Bld) Blood group AB Rh(D) positive Normal [facility] Comment on above: Result Comment: PERF ORMED BY: [place] [address] PATHOLOGIST SPRING WINDER ELIZABETH MOREL M.D. Urea nitrogen [Mass/volume] in Serum or PlasmaOrdered By: Sohail Figueroa on 04-08-2025 Urea nitrogen [Mass/Vol] 71 mg/dL High 7-25 [facility] Comment on above: Performed By: #### P T, PTT, LIPASE, CMP, HS TROP, CBC #### [facility] [address] [place], [place] [id number] [facility] Urobilinogen Test strip (U) [Mass/Vol]Ordered By: Sohail Figueroa on 04-08-2025 Urobilinogen (U) [Mass/Vol] Normal mg/dL Normal [facility] X-ray reportOrdered By: Kory Garnett on 04-08-2025 Study report [facility] [place] [address] XRay Report Signed Patient: Marleni Dennis MR#: [id number] : 1950 Acct:[id number] Age/Sex: 74 / F ADM Date: 5 Loc: ER Room: Type: [facility] ER Attending Dr: Copies to: Sohail Figueroa [...] Garnett M.D. 04/08/2025 8:43 PM Dictation Location: [place] [address] Transcribed By: [facility] 04/08/252042 Dictated By: Derek Garnett DO 04/08/252038 Signed By: 04/08/252042 [facility] XR chest 2V*on 04-08-2025 XR chest 2V* [facility] [place] [address] XRay Report Signed Patient: Marleni Dennis MR#: [id number] : 1950 Acct:[id number] Age/Sex: 74 / F ADM Date: 04/08/25 Loc: ER Room: Type: [facility] Attending Dr: Copies to: Sohail Figueroa PA-C [...] Garnett M.D. 04/08/2025 8:43 PM Dictation Location: [place] [address] Transcribed By: [facility] 04/08/252042 Dictated By: Derek Garnett DO 04/08/252038 Signed By: 04/08/252042 Normal [facility] aPTT in Platelet poor plasma by Coagulation assayOrdered By: Sohail Figueroa on 04-08-2025 aPTT Coag (PPP) [Time] 31.6 s 25.1-36.5 [facility] Comment on above: A hematocrit value g reater than 55% may lead to inaccurate results in coagulation testing. Patients having hematocrit values >55% require a special collection tube for coagulation studies. Please contact the laboratory at [phone] for redraw instructions. pH of Urine by Test stripOrd ered By: Sohail Figueroa on 04-08-2025 pH (U) 6.5 [pH] Normal 5.0-9.0 [facility] Comment on above: Order Comment: Name Collection Type:: Clean-Voided Midstream Performed By: #### A DDONUAPLUS ####[facility] [address] [place] [id number] [facility] CBC (INCLUDES DIFF/PLT)on Basophils (Bld) [#/Vol] 0.02 10*3/uL Normal 0-200 [facility] Comment on above: Performed By: #### 3 020, 39366, %SBCULI, 6399 #### [facility] [address] [employer]: Figueroa Jacques MD Basophils/100 WBC (Bld) 0.5 % Normal [facility] Comment on above: Performed By: #### 3 020, 77577, %SBCULI, 6399 #### [facility] [address] [employer]: Figueroa Jacques MD Eosinophils (Bld) [#/Vol] 0.121 10*3/uL Normal 15-500 [facility] Comment on above: Performed By: #### 3 020, 59194, %SBCULI, 6399 #### [facility] of [address], [address] [place] [address] [employer]: Figueroa Jacques MD Eosinophils/100 WBC (Bld) 3.1 % Normal [facility] Comment on above: Performed By: #### 3 020, 56124, %SBCULI, 6399 #### [facility] of [address], [address] [place] [address] [employer]: Figueroa Jacques MD Erythrocyte distribution width (RBC) [Ratio] 15.8 % High 11.0-15.0 [facility] Comment on above: Performed By: #### 3 020, 77384, %SBCULI, 6399 #### [facility] of [place] [address] [employer]: Figueroa Jacques MD Hematocrit (Bld) [Volume fraction] 27.4 % Low 35.0-45.0 [facility] Comment on above: Performed By: #### 3 020, 89515, %SBCULI, 6399 #### [facility] of [place] [address] [employer]: Figueroa Jacques MD Hemoglobin (Bld) [Mass/Vol] 8.7 g/dL Low 11.7-15.5 [facility] Comment on above: Performed By: #### 3 020, 85326, %SBCULI, 6399 #### [facility] of [place] [address] [employer]: Figueroa Jacques MD Lymphocytes (Bld) [#/Vol] 0.94 10*3/uL Normal 850-3900 [facility] Comment on above: Performed By: #### 3 020, 07947, %SBCULI, 6399 #### [facility] of [place] [address] [employer]: Figueroa Jacques MD Lymphocytes/100 WBC (Bld) 24.1 % Normal [facility] Comment on above: Performed By: #### 3 020, 09477, %SBCULI, 6399 #### [facility] of [place] [address] [employer]: Figueroa Jacques MD MCH (RBC) [Entitic mass] 29.6 pg Normal 27.0-33.0 [facility] Comment on above: Performed By: #### 3 020, 05106, %SBCULI, 6399 #### [facility] [place] [address] [employer]: Figueroa Jacques MD MCHC (RBC) [Mass/Vol] 31.8 [...] clinical condition. Performed By: #### 3 020, 97065, %SBCULI, 6399 #### [facility] [place] [address] [employer]: Figueroa Jacques MD MCV (RBC) [Entitic vol] 93.2 fL Normal 80.0-100.0 [facility] Comment on above: Performed By: #### 3 020, 50751, %SBCULI, 6399 #### [facility] [place] [address] [employer]: Figueroa Jacques MD Monocytes (Bld) [#/Vol] 0.507 10*3/uL Normal 200-950 [facility] Comment on above: Performed By: #### 3 020, 81272, %SBCULI, 6399 #### [facility] of [place] [address] [employer]: Figueroa Jacques MD Monocytes/100 WBC (Bld) 13.0 % Normal [facility] Comment on above: Performed By: #### 3 020, 77303, %SBCULI, 6399 #### [facility] [place] [address] [employer]: Figueroa Jacques MD Neutrophils (Bld) [#/Vol] 2.313 10*3/uL Normal 9299-4897 [facility] Comment on above: Performed By: #### 3 020, 39391, %SBCULI, 6399 #### [facility] of [place] [address] [employer]: Figueroa Jacques MD Neutrophils/100 WBC (Bld) 59.3 % Normal [facility] Comment on above: Performed By: #### 3 020, 83528, %SBCULI, 6399 #### [facility] of [place] [address] [employer]: Figueroa Jacques MD Platelet mean volume (Bld) [Entitic vol] 11.3 fL Normal 7.5-12.5 [facility] Comment on above: Performed By: #### 3 020, 64869, %SBCULI, 6399 #### [facility] of [place] [address] [employer]: Figueroa Jacques MD Platelets (Bld) [#/Vol] 188 10*3/uL Normal 140-400 [facility] Comment on above: Performed By: #### 3 020, 69504, %SBCULI, 6399 #### [facility] of [place] [address] [employer]: Figueroa Jacques MD RBC (Bld) [#/Vol] 2.94 10*6/uL Low 3.80-5.10 [facility] Comment on above: Performed By: #### 3 020, 18144, %SBCULI, 6399 #### [facility] of [place] [address] [employer]: Figueroa Jacques MD WBC (Bld) [#/Vol] 3.9 10*3/uL Normal 3.8-10.8 [facility] Comment on above: Performed By: #### 3 020, 53591, %SBCULI, 6399 #### [facility] of [address] [place] [address] [employer]: Figueroa Jacques MD [facility] 04-04-2025 Albumin [Mass/Vol] 3.6 g/dL Normal 3.6-5.1 [facility] Comment on above: Performed By: #### 3 020, 29415, %SBCULI, 6399 #### [facility] of [address], [address] [place] [address] [employer]: Figueroa Jacques MD Albumin/Globulin [Mass ratio] 1.4 {ratio} Normal 1.0-2.5 [facility] Comment on above: Performed By: #### 3 020, 59655, %SBCULI, 6399 #### [facility] [place] [address] [employer]: Figueroa Jacques MD ALP [Catalytic activity/Vol] 37 U/L Normal 37-153 [facility] Comment on above: Performed By: #### 3 020, 55285, %SBCULI, 6399 #### [facility] [place] [address] [employer]: Figueroa Jacques MD ALT [Catalytic activity/Vol] 5 U/L Low 6-29 [facility] Comment on above: Performed By: #### 3 020, 55810, %SBCULI, 6399 #### [facility] [place] [address] [employer]: Figueroa Jacques MD AST [Catalytic activity/Vol] 15 U/L Normal 10-35 [facility] Comment on above: Performed By: #### 3 020, 77806, %SBCULI, 6399 #### [facility] [place] [address] [employer]: Figueroa Jacques MD Bilirubin [Mass/Vol] 0.6 mg/dL Normal 0.2-1.2 [facility] Comment on above: Performed By: #### 3 020, 30555, %SBCULI, 6399 #### [facility] [place] [address] [employer]: Figueroa Jacques MD Calcium [Mass/Vol] 8.8 mg/dL Normal 8.6-10.4 [facility] Comment on above: Performed By: #### 3 020, 01130, %SBCULI, 6399 #### [facility] [place] [address] [employer]: Figueroa Jacques MD Chloride [Moles/Vol] 98 mmol/L Normal 98-110 [facility] Comment on above: Performed By: #### 3 020, 01072, %SBCULI, 6399 #### [facility] [place] [address] [employer]: Figueroa Jacques MD CO2 [Moles/Vol] 25 mmol/L Normal 20-32 [facility] Comment on above: Performed By: #### 3 020, 84780, %SBCULI, 6399 #### [facility] [place] [address] [employer]: Figueroa Jacques MD Creatinine [Mass/Vol] 4.59 mg/dL High 0.60-1.[address] [facility] Comment on above: Performed By: #### 3 020, 74849, %SBCULI, 6399 #### [facility] [place] [address] [employer]: Figueroa Jacques MD GFR/1.73 sq M.predicted among non-blacks MDRD (S/P/Bld) [Vol rate/Area] 9 mL/min/{1.73_m2} Low > OR = 60 [facility] Comment on above: Performed By: #### 3 020, 91780, %SBCULI, 6399 #### [facility] [place] [address] [employer]: Figueroa Jacques MD Globulin (S) [Mass/Vol] 2.5 g/dL Normal 1.9-3.7 [facility] Comment on above: Performed By: #### 3 020, 12924, %SBCULI, 6399 #### [facility] [place] [address] [employer]: Figueroa Jacques MD Glucose [Mass/Vol] 96 mg/dL Normal 65-99 [facility] Comment on above: Result Comment: Fasting reference interval Performed By: #### 3 020, 80099, %SBCULI, 6399 #### [facility] [place] [address] [employer]: Figueroa Jacques MD Potassium [Moles/Vol] 3.8 mmol/L Normal 3.5-5.[address] [facility] Comment on above: Performed By: #### 3 020, 48410, %SBCULI, 6399 #### [facility] [place] [address] [employer]: Figueroa Jacques MD Protein [Mass/Vol] 6.1 g/dL Normal 6.1-8.1 [facility] Comment on above: Performed By: #### 3 020, 40649, %SBCULI, 6399 #### [facility] [place] [address] [employer]: Figueroa Jacques MD Sodium [Moles/Vol] 136 mmol/L Normal 135-146 [facility] Comment on above: Performed By: #### 3 020, 31308, %SBCULI, 6399 #### [facility] [place] [address] [employer]: Figueroa Jacques MD Urea nitrogen [Mass/Vol] 69 mg/dL High 7-25 [facility] Comment on above: Performed By: #### 3 020, 17665, %SBCULI, 6399 #### [facility] [place] [address] [employer]: Figueroa Jacques MD Urea nitrogen/Creatinine [Mass ratio] 15 mg/mg Normal 6-22 [facility] Comment on above: Performed By: #### 3 020, 15176, %SBCULI, 6399 #### [facility] [address], [address] [place] [address] [employer]: Figueroa Jacques MD CULTURE, URINE, ROUTINEon CULTURE, URINE, ROUTINE SEE NOTE Normal [facility] Comment on above: Result Comment: CULTURE, URINE, ROUTINE Micro Number: [id number] Test Status: Final Specimen Source: Urine Specimen Quality: Adequate Result: Less than 10,000 CFU/mL of single Gram positive organism isolated. No further testing will be performed. If clinically indicated, recollection using a method to minimize contamination, with prompt transfer to Urine Culture Transport Tube, is recommended. Performed By: #### 1 0231, 6399, 22718, 899, 6200 #### [facility] [address], [address] [place] [address] [employer]: Figueroa Jacques MD Office Visiton 04-04-2025 Follow-up visit [id number] Lauren Dennis 1950 F Date Provider Department [place] 04/04/2025 [id number], ADAM CARD [facility] Family History Problem Relation Age of Onset Coronary artery disease Mother Stroke Mother Coronary artery disease Father Ovarian cancer Sister Family Status - Relation Status Age at Mother Father Sister Level of Service:46879 [place] OFFICE/OUTPATIENT ESTABLISHED MOD MDM 30 MIN Normal [facility] REFLEXIVE URINE CULTUREon REFLEXIVE URINE CULTURE Normal [facility] Comment on above: Result Comment: CULT URE INDICATED - RESULTS TO FOLLOW Performed By: #### 3 020, 78154, %SBCULI, 6399 #### [facility] [address], [address] [place] [address] [employer]: Figueroa Jacques MD URINALYSIS, COMPLETE W/REFLE X TO CULTUREon 04-04-2025 Appearance (U) CLOUDY Abnormal CLEAR [facility] Comment on above: Performed By: #### 3 020, 12254, %SBCULI, 6399 #### [facility] [address], [address] [place] [address] [employer]: Figueroa Jacques MD BACTERIA NONE SEEN Normal NONE SEEN [facility] Comment on above: Performed By: #### 3 020, 96057, %SBCULI, 6399 #### [facility] of [address], [address] [place] [address] [employer]: Figueroa Jacques MD Bilirubin Ql (U) Negative Normal NEGATIVE [facility] Comment on above: Performed By: #### 3 020, 97849, %SBCULI, 6399 #### [facility] of [address], [address] [place] [address] [employer]: Figueroa Jacques MD Color (U) YELLOW Normal YELLOW [facility] Comment on above: Performed By: #### 3 020, 60993, %SBCULI, 6399 #### [facility] [place] [address] [employer]: Figueroa Jacques MD Glucose Ql (U) Negative Normal NEGATIVE [facility] Comment on above: Performed By: #### 3 020, 19203, %SBCULI, 6399 #### [facility] [place] [address] [employer]: Figueroa Jacques MD HYALINE CAST 10-20 Abnormal NONE SEEN [facility] Comment on above: Performed By: #### 3 020, 46476, %SBCULI, 6399 #### [facility] of [address], [address] [place] [address] [employer]: Figueroa Jacques MD Ketones Ql (U) Negative Normal NEGATIVE [facility] Comment on above: Performed By: #### 3 020, 37570, %SBCULI, 6399 #### [facility] [place] [address] [employer]: Figueroa Jacques MD Leukocyte esterase Test strip Ql (U) TRACE Abnormal NEGATIVE [facility] Comment on above: Performed By: #### 3 020, 08519, %SBCULI, 6399 #### [facility] of [address], [address] [place] [address] [employer]: Figueroa Jacques MD Nitrite Ql (U) Negative Normal NEGATIVE [facility] Comment on above: Performed By: #### 3 020, 58492, %SBCULI, 6399 #### [facility] [place] [address] [employer]: Figueroa Jacques MD NOTE Normal [facility] Comment on above: Result Comment: This urine was analyzed for the presence of WBC, RBC, bacteria, casts, and other formed elements. Only those elements seen were reported. Performed By: #### 3 020, 25062, %SBCULI, 6399 #### [facility] [place] [address] [employer]: Figueroa Jacques MD OCCULT BLOOD Negative Normal NEGATIVE [facility] Comment on above: Performed By: #### 3 020, 67438, %SBCULI, 6399 #### [facility] [place] [address] [employer]: Figueroa Jacques MD pH (U) 5.5 [pH] Normal 5.0-8.0 [facility] Comment on above: Performed By: #### 3 020, 45928, %SBCULI, 6399 #### [facility] [place] [address] [employer]: Figueroa Jacques MD Protein Ql (U) 3+ Abnormal NEGATIVE [facility] Comment on above: Performed By: #### 3 020, 10904, %SBCULI, 6399 #### [facility] [place] [address] [employer]: Figueroa Jacques MD RBC NONE SEEN Normal < OR = 2 [facility] Comment on above: Performed By: #### 3 020, 61402, %SBCULI, 6399 #### [facility] [place] [address] [employer]: Figueroa Jacques MD Specific gravity (U) [Rel density] 1.010 Normal 1.001-1.03 5 [facility] Comment on above: Performed By: #### 3 020, 01600, %SBCULI, 6399 #### [facility] of [place] [address], [address] [place] [address] [employer]: Figueroa Jacques MD SQUAMOUS EPITHELIAL CELLS 0-5 Normal < OR = 5 [facility] Comment on above: Performed By: #### 3 020, 37164, %SBCULI, 6399 #### [facility] [place] [address], [address] [place] [address] [employer]: Figueroa Jacques MD WBC 0-5 Normal < OR = 5 [facility] Comment on above: Performed By: #### 3 020, 73184, %SBCULI, 6399 #### [facility] [place] [address], [address] [place] [address] [employer]: Figueroa Jacques MD 30on 03-20-2025 30 The patient is Moder ately Stable - Low risk of patient condition declining or worsening The patient's goals for the shift include rest The clinical goals for the shift include vss Normal [facility] BASIC METABOLIC PANELon 07-0 Anion gap [Moles/Vol] 13 mmol/L Normal 7-20 [facility] Comment on above: Performed By: #### L [id number] ####[facility] (BEAKER)[address] [place] [address] Calcium [Mass/Vol] 8.3 mg/dL Low 8.6-10.3 [facility] Comment on above: Performed By: #### L [id number] ####[facility] ([facility])[address] [place] [address] Chloride [Moles/Vol] 106 mmol/L Normal 98-107 [facility] Comment on above: Performed By: #### L [id number] ####[facility] ([facility])[address] [place] [address] CO2 [Moles/Vol] 21 mmol/L Normal 21-31 [facility] Comment on above: Performed By: #### L [id number] ####[facility] ([facility]AKER)[address] [place] [id number] Creatinine [Mass/Vol] 3.69 mg/dL High 0.60-1.20 [facility] Comment on above: Performed By: #### L [id number] ####[facility] ([facility])[address] [place] [id number] GLOMERULAR FILTRATION RATE ML/MIN/1.73 SQ M.PREDICTED 12.3 mL/min/1.73m*2 Low >60.0 [facility] Comment on above: Result Comment: [facility]???s estimated glomerular filtration rate (eGFR) will [...] of individuals. Performed By: #### L [id number] ####[facility] ([facility])[address] [place] [id number] Glucose [Mass/Vol] 82 mg/dL Normal 70-100 [facility] Comment on above: Performed By: #### L [id number] ####[facility] ([facility])[address] [place] [id number] Potassium [Moles/Vol] 5.1 mmol/L Normal 3.5-5.1 [facility] Comment on above: Performed By: #### L [id number] ####[facility] ([facility])[address] [place] [id number] Sodium [Moles/Vol] 135 mmol/L Low 136-145 [facility] Comment on above: Performed By: #### L [id number] ####[facility] ([facility])[address] [place] [address] Urea nitrogen [Mass/Vol] 85 mg/dL High 7-25 [facility] Comment on above: Performed By: #### L [id number] ####[facility] ([facility])[address] [place] [address] UREA NITROGEN/CREATININE (MASS RATIO) IN SER/PLAS 23.0 Normal [facility] Comment on above: Performed By: #### L [id number] ####[facility] ([facility])[address] [place] [address] CBC WITH AUTO DIFFERENTIALon 03-20-2025 Erythrocyte distribution width (RBC) [Ratio] 16.5 % High 11.5-15.0 [facility] Comment on above: Performed By: #### L [id number] #### [facility] ([facility]) [address] [place] [address] ERYTHROCYTE MEAN CORPUSCULAR HEMOGLOBIN CONCENTRATION (G/DL) BY AUTOMATED 33.0 g/dL Normal 32.0-35.0 [facility] Comment on above: Performed By: #### L [id number] #### [facility] ([facility]) [address] [place] [address] Hematocrit (Bld) [Volume fraction] 27.6 % Low 36.0-45.0 [facility] Comment on above: Performed By: #### L [id number] #### [facility] ([facility]) [address] [place] [address] Hemoglobin (Bld) [Mass/Vol] 9.1 g/dL Low 12.0-15.0 [facility] Comment on above: Performed By: #### L [id number] #### [facility] ([facility]) [address] [place] [address] IMMATURE PLATELET FRACTION % 5.6 % Normal 0.8-6.3 [facility] Comment on above: Performed By: #### L [id number] #### [facility] ([facility]) [address] [facility] [place] [address] MCH (RBC) [Entitic mass] 29.5 pg Normal 27.0-33.0 [facility] Comment on above: Performed By: #### L [id number] #### [facility] ([facility]) [address] [place] [id number] MCV (RBC) [Entitic vol] 89.6 fL Normal 82.0-98.0 [facility] Comment on above: Performed By: #### L [id number] #### [facility] ([facility]) [address] [place] [id number] NRBC (PER 100 WBCS) BY AUTOMATED COUNT 0.0 % Normal 0 [facility] Comment on above: Performed By: #### L [id number] #### [facility] ([facility]) [address] [place] [id number] PLATELETS (10*3/UL) IN BLOOD AUTOMATED COUNT 137 10*3/uL Low 150-400 [facility] Comment on above: Performed By: #### L [id number] #### [facility] ([facility]) [address] [place] [id number] RBC (Bld) [#/Vol] 3.08 10*6/uL Low 3.80-5.00 [facility] Comment on above: Performed By: #### L [id number] #### [facility] ([facility]) [address] [place] [id number] WBC (Bld) [#/Vol] 4.82 10*3/uL Normal 4.00-10.60 [facility] Comment on above: Performed By: #### L [id number] #### [facility] ([facility]) [address] [place] [id number] MANUAL DIFFERENTIALon 2024 BASOPHILS (10*3/UL) IN BLOOD BY CALCULATION 0.04 10*3/uL Normal 0.00-0.20 [facility] Comment on above: Performed By: #### L [id number] ####[facility] ([facility])[address] [place] [id number] BASOPHILS/100 LEUKOCYTES IN BLOOD BY AUTOMATED COUNT 0.8 % Normal 0.0-1.0 [facility] Comment on above: Performed By: #### L [id number] ####[facility] ([facility])[address] [place] [address] EOSINOPHILS (10*3/UL) IN BLOOD BY CALCULATION 0.21 10*3/uL Normal 0.00-0.50 [facility] Comment on above: Performed By: #### L [id number] ####[facility] ([facility])[address] [place] [address] EOSINOPHILS/100 LEUKOCYTES IN BLOOD BY AUTOMATED COUNT 4.4 % Normal 0.0-6.0 [facility] Comment on above: Performed By: #### L [id number] ####[facility] ([facility])[address] [place] [id number] IMMATURE GRANULOCYTES (10*3/UL) IN BLOOD BY CALCULATION 0.03 10*3/uL Normal 0.00-0.20 [facility] Comment on above: Performed By: #### L [id number] ####[facility] ([facility])[address] [place] [id number] IMMATURE GRANULOCYTES/100 LEUKOCYTES IN BLOOD BY AUTOMATED COUNT 0.6 % Normal 0.0-1.0 [facility] Comment on above: Performed By: #### L [id number] ####[facility] ([facility])[address] [place] [address] LYMPHOCYTES (10*3/UL) IN BLOOD BY CALCULATION 1.64 10*3/uL Normal 1.20-4.00 [facility] Comment on above: Performed By: #### L [id number] ####[facility] ([facility])[address] [place] [id number] LYMPHOCYTES/100 LEUKOCYTES IN BLOOD BY AUTOMATED COUNT 34.0 % Normal 20.0-45.0 [facility] Comment on above: Performed By: #### L [id number] ####[facility] ([facility])[address] [place] [address] MONOCYTES (10*3/UL) IN BLOOD BY CALCUATION 0.52 10*3/uL Normal 0.10-1.00 [facility] Comment on above: Performed By: #### L [id number] ####[facility] ([facility])[address] [place] [id number] MONOCYTES/100 LEUKOCYTES IN BLOOD BY AUTOMATED COUNT 10.8 % Normal 5.0-12.0 [facility] Comment on above: Performed By: #### L [id number] ####[facility] ([facility])[address] [place] [id number] NEUTROPHILS (10*3/UL) IN BLOOD BY CALCULATION 2.4 10*3/uL Normal 1.6-7.6 [facility] Comment on above: Performed By: #### L [id number] ####[facility] ([facility])[address] [place] [address] NEUTROPHILS/100 LEUKOCYTES IN BLOOD BY AUTOMATED COUNT 49.4 % Normal 40.0-72.0 [facility] Comment on above: Performed By: #### L [id number] ####[facility] ([facility])[address] [place] [id number] 30on 03-19-2025 30 Problem: Pain - Adul [...] for the shift include stable vitals Normal [facility] BASIC METABOLIC PANELon Anion gap [Moles/Vol] 12 mmol/L Normal 7-20 [facility] Comment on above: Performed By: #### L [id number] #### [facility] ([facility]) [address] [place] [address] Calcium [Mass/Vol] 8.4 mg/dL Low 8.6-10.3 [facility] Comment on above: Performed By: #### L [id number] #### [facility] (BEAKER) [address] [place] [address] Chloride [Moles/Vol] 107 mmol/L Normal 98-107 [facility] Comment on above: Performed By: #### L [id number] #### [facility] [address] [place] [address] CO2 [Moles/Vol] 22 mmol/L Normal 21-31 [facility] Comment on above: Performed By: #### L [id number] #### [facility] ([facility]) [address] [place] [address] Creatinine [Mass/Vol] 3.88 mg/dL High 0.60-1.20 [facility] Comment on above: Performed By: #### L [id number] #### [facility] ([facility]) [address] [place] [address] GLOMERULAR FILTRATION RATE ML/MIN/1.73 SQ M.PREDICTED 11.5 mL/min/1.73m*2 Low >60.0 [facility] Comment on above: Result Comment: [facility]???s estimated glomerular filtration rate (eGFR) will [...] individuals. Performed By: #### L [id number] #### [facility] [address] [place] [address] Glucose [Mass/Vol] 88 mg/dL Normal 70-100 [facility] Comment on above: Performed By: #### L [id number] #### [facility] [address] [place] [address] Potassium [Moles/Vol] 5.0 mmol/L Normal 3.5-5.1 [facility] Comment on above: Performed By: #### L [id number] #### [facility] ([facility]) [address] [place] [id number] Sodium [Moles/Vol] 136 mmol/L Normal 136-145 [facility] Comment on above: Performed By: #### L [id number] #### [facility] ([facility]) [address] [place] [address] Urea nitrogen [Mass/Vol] 81 mg/dL High 7-25 [facility] Comment on above: Performed By: #### L [id number] #### [facility] ([facility]) [address] [place] [address] UREA NITROGEN/CREATININE (MASS RATIO) IN SER/PLAS 20.9 Normal [facility] Comment on above: Performed By: #### L [id number] #### [facility] ([facility]) [address] [place] [address] CBC WITH AUTO DIFFERENTIALon 03-19-2025 Basophils (Bld) [#/Vol] 0.04 10*3/uL Normal 0.00-0.20 [facility] Comment on above: Performed By: #### L [id number] ####[facility] ([facility])[address] [place] [address] Basophils/100 WBC (Bld) 0.7 % Normal 0.0-1.0 [facility] Comment on above: Performed By: #### L [id number] ####[facility] ([facility])[address] [place] [address] Eosinophils (Bld) [#/Vol] 0.24 10*3/uL Normal 0.00-0.50 [facility] Comment on above: Performed By: #### L [id number] ####[facility] [place] [address] Eosinophils/100 WBC (Bld) 4.4 % Normal 0.0-6.0 [facility] Comment on above: Performed By: #### L [id number] ####[facility] ([facility])[address] [place] [id number] Erythrocyte distribution width (RBC) [Ratio] 16.4 % High 11.5-15.0 [facility] Comment on above: Performed By: #### L [id number] ####[facility] ([facility])[address] [place] [id number] ERYTHROCYTE MEAN CORPUSCULAR HEMOGLOBIN CONCENTRATION (G/DL) BY AUTOMATED 33.0 g/dL Normal 32.0-35.0 [facility] Comment on above: Performed By: #### L [id number] ####[facility] ([facility])[address] [place] [id number] Hematocrit (Bld) [Volume fraction] 28.8 % Low 36.0-45.0 [facility] Comment on above: Performed By: #### L [id number] ####[facility] ([facility])[address] [place] [id number] Hemoglobin (Bld) [Mass/Vol] 9.5 g/dL Low 12.0-15.0 [facility] Comment on above: Performed By: #### L [id number] ####[facility] ([facility])[address] [place] [id number] Immature granulocytes (Bld) [#/Vol] 0.02 10*3/uL Normal 0.00-0.20 [facility] Comment on above: Performed By: #### L [id number] ####[facility] ([facility])[address] [place] [id number] Immature granulocytes/100 WBC (Bld) 0.4 % Normal 0.0-1.0 [facility] Comment on above: Performed By: #### L [id number] ####[facility] ([facility])[address] [place] [id number] Lymphocytes (Bld) [#/Vol] 1.66 10*3/uL Normal 1.20-4.00 [facility] Comment on above: Performed By: #### L [id number] ####[facility] (BEAKER)[address] [place] [address] Lymphocytes/100 WBC (Bld) 30.6 % Normal 20.0-45.0 [facility] Comment on above: Performed By: #### L [id number] ####[facility] (BEAKER)[address] [place] [address] MCH (RBC) [Entitic mass] 29.1 pg Normal 27.0-33.0 [facility] Comment on above: Performed By: #### L [id number] ####[facility] (BEAKER)[address] [place] [address] MCV (RBC) [Entitic vol] 88.1 fL Normal 82.0-98.0 [facility] Comment on above: Performed By: #### L [id number] ####[facility] (BEAKER)[address] [place] [address] Monocytes (Bld) [#/Vol] 0.56 10*3/uL Normal 0.10-1.00 [facility] Comment on above: Performed By: #### L [id number] ####[facility] (BEAKER)[address] [place] [address] Monocytes/100 WBC (Bld) 10.3 % Normal 5.0-12.0 [facility] Comment on above: Performed By: #### L [id number] ####[facility] (BEAKER)[address] [place] [address] Neutrophils (Bld) [#/Vol] 2.91 10*3/uL Normal 1.60-7.60 [facility] Comment on above: Performed By: #### L [id number] ####[facility] (BEAKER)[address] [place] [address] Neutrophils/100 WBC (Bld) 53.6 % Normal 40.0-72.0 [facility] Comment on above: Performed By: #### L [id number] ####[facility] ([facility]AKER)[address] [place] [address] NRBC (PER 100 WBCS) BY AUTOMATED COUNT 0.0 % Normal 0 [facility] Comment on above: Performed By: #### L [id number] ####[facility] ([facility])[address] [place] [address] PLATELETS (10*3/UL) IN BLOOD AUTOMATED COUNT 194 10*3/uL Normal 150-400 [facility] Comment on above: Performed By: #### L [id number] ####[facility] ([facility])[address] [place] [address] RBC (Bld) [#/Vol] 3.27 10*6/uL Low 3.80-5.00 [facility] Comment on above: Performed By: #### L [id number] ####[facility] ([facility])[address] [place] [address] WBC (Bld) [#/Vol] 5.43 10*3/uL Normal 4.00-10.60 [facility] Comment on above: Performed By: #### L [id number] ####[facility] ([facility])[address] [place] [address] URINALYSIS WITH MICROSCOPICo n 03-19-2025 BILIRUBIN, TOTAL PRESENCE IN URINE Negative Normal Negative [facility] Comment on above: Performed By: #### L [id number] #### [facility] ([facility]) [address] [place] [address] Clarity (U) Clear Normal Clear [facility] Comment on above: Performed By: #### L [id number] #### [facility] ([facility]) [address] [place] [address] Color (U) Light-Yellow Normal Colorless, Yellow, Light-Erath ow [facility] Comment on above: Performed By: #### L [id number] #### [facility] ([facility]) [address] [place] [address] GLUCOSE (MG/DL) IN URINE Normal Normal Normal [facility] Comment on above: Performed By: #### L [id number] #### [facility] ([facility]) [address] [place] [address] HEMOGLOBIN PRESENCE IN URINE Negative Normal Negative [facility] Comment on above: Performed By: #### L [id number] #### [facility] ([facility]) [address] [place] [address] Ketones Ql (U) Negative Normal Negative [facility] Comment on above: Performed By: #### L [id number] #### [facility] ([facility]) [address] [place] [address] LEUKOCYTE ESTERASE PRESENCE IN URINE BY TEST STRIP Negative Normal Negative [facility] Comment on above: Performed By: #### L [id number] #### [facility] ([facility]) [address] [place] [address] NITRITE PRESENCE IN URINE Negative Normal Negative [facility] Comment on above: Performed By: #### L [id number] #### [facility] ([facility]) [address] [place] [address] pH (U) 6.0 [pH] Normal 5.0-8.0 [facility] Comment on above: Performed By: #### L [id number] #### [facility] ([facility]) [address] [place] [id number] Protein (U) [Mass/Vol] 30 mg/dL Abnormal Negative [facility] on above: Performed By: #### L [id number] #### [facility] ([facility]) [address] [place] [id number] RBC (#/HPF) IN URINE SEDIMENT 0-2 Normal None Seen, 0-2 [facility] Comment on above: Performed By: #### L [id number] #### [facility] ([facility]) [address] [place] [address] Specific gravity (U) [Rel density] 1.013 Normal 1.010-1.03 0 [facility] Comment on above: Performed By: #### L [id number] #### [facility] ([facility]) [address] [place] [address] SQUAMOUS EPITHELIAL CELLS (#/LPF) IN URINE SEDIMENT Occasional Normal None Seen, Occasional , Few [facility] Comment on above: Performed By: #### L [id number] #### [facility] ([facility]) [address] [place] [address] UROBILINOGEN (MG/DL) IN URINE Normal Normal Normal [facility] Comment on above: Performed By: #### L [id number] #### [facility] ([facility]) [address] [place] [address] WBC (LEUKOCYTE) (#/HPF) IN URINE SEDIMENT 0-2 Normal None Seen, 0-2 [facility] Comment on above: Performed By: #### L [id number] #### [facility] ([facility]) [address] [place] [address] 30on 03-18-2025 30 The patient is Moder ately Stable - Low risk of patient condition declining or worsening The patient's goals for the shift include rest The clinical goals for the shift include stable vitals Problem: Pain - Adult Goal: Verbalizes/displays adequate comfort level or baseline comfort level Outcome: Progressing Flowsheets (Taken 03/18/20252099) Verbalizes/displays adequate comfort level or baseline comfort [...] ambulating with or without assistive devices Normal [facility] BASIC METABOLIC PANELon 07-0 Anion gap [Moles/Vol] 12 mmol/L Normal 7-20 [facility] Comment on above: Performed By: #### L [id number] #### [facility] ([facility]AK[facility]) [address] [place] [address] Calcium [Mass/Vol] 8.7 mg/dL Normal 8.6-10.3 [facility] Comment on above: Performed By: #### L [id number] #### [facility] ([facility]) [address] [place] [address] Chloride [Moles/Vol] 106 mmol/L Normal 98-107 [facility] Comment on above: Performed By: #### L [id number] #### [facility] [address] [place] [address] CO2 [Moles/Vol] 22 mmol/L Normal 21-31 [facility] Comment on above: Performed By: #### L [id number] #### [facility] [address] [place] [address] Creatinine [Mass/Vol] 3.69 mg/dL High 0.60-1.20 [facility] Comment on above: Performed By: #### L [id number] #### [facility] ([facility]) [address] [place] [address] GLOMERULAR FILTRATION RATE ML/MIN/1.73 SQ M.PREDICTED 12.3 mL/min/1.73m*2 Low >60.0 [facility] Comment on above: Result Comment: [facility]???s estimated glomerular filtration rate (eGFR) will [...] group of individuals. Performed By: #### L [id number] #### [facility] [address] [place] [address] Glucose [Mass/Vol] 85 mg/dL Normal 70-100 [facility] Comment on above: Performed By: #### L [id number] #### [facility] ([facility]) [address] [place] [address] Potassium [Moles/Vol] 5.1 mmol/L Normal 3.5-5.1 Uni [facility] Comment on above: Performed By: #### L [id number] #### [facility] ([facility]) [address] [place] [address] Sodium [Moles/Vol] 135 mmol/L Low 136-145 [facility] Comment on above: Performed By: #### L [id number] #### [facility] ([facility]) [address] [place] [address] Urea nitrogen [Mass/Vol] 68 mg/dL High 7-25 [facility] Comment on above: Performed By: #### L [id number] #### [facility] ([facility]) [address] [place] [address] UREA NITROGEN/CREATININE (MASS RATIO) IN SER/PLAS 18.4 Normal [facility] Comment on above: Performed By: #### L [id number] #### [facility] ([facility]) [address] [place] [address] CBC WITH AUTO DIFFERENTIALon 03-18-2025 Basophils (Bld) [#/Vol] 0.04 10*3/uL Normal 0.00-0.20 [facility] Comment on above: Performed By: #### L [id number] #### [facility] ([facility]) [address] [place] [address] Basophils/100 WBC (Bld) 0.7 % Normal 0.0-1.0 [facility] Comment on above: Performed By: #### L [id number] #### [facility] ([facility]) [address] [place] [address] Eosinophils (Bld) [#/Vol] 0.27 10*3/uL Normal 0.00-0.50 [facility] Comment on above: Performed By: #### L [id number] #### [facility] [address] [address] Eosinophils/100 WBC (Bld) 4.9 % Normal 0.0-6.0 [facility] Comment on above: Performed By: #### L [id number] #### [facility] ([facility]) [address] [place] [address] Erythrocyte distribution width (RBC) [Ratio] 16.4 % High 11.5-15.0 [facility] Comment on above: Performed By: #### L [id number] #### [facility] ([facility]) [address] [place] [address] ERYTHROCYTE MEAN CORPUSCULAR HEMOGLOBIN CONCENTRATION (G/DL) BY AUTOMATED 32.5 g/dL Normal 32.0-35.0 [facility] Comment on above: Performed By: #### L [id number] #### [facility] ([facility]) [address] [place] [address] Hematocrit (Bld) [Volume fraction] 29.5 % Low 36.0-45.0 [facility] Comment on above: Performed By: #### L [id number] #### [facility] ([facility]) [address] [place] [address] Hemoglobin (Bld) [Mass/Vol] 9.6 g/dL Low 12.0-15.0 [facility] Comment on above: Performed By: #### L [id number] #### [facility] ([facility] [address] [place] [address] Immature granulocytes (Bld) [#/Vol] 0.02 10*3/uL Normal 0.00-0.20 [facility] Comment on above: Performed By: #### L [id number] #### [facility] ([facility]) [address] [place] [address] Immature granulocytes/100 WBC (Bld) 0.4 % Normal 0.0-1.0 [facility] Comment on above: Performed By: #### L [id number] #### [facility] ([facility]) [address] [place] [id number] Lymphocytes (Bld) [#/Vol] 1.76 10*3/uL Normal 1.20-4.00 [facility] Comment on above: Performed By: #### L [id number] #### [facility] ([facility]) [address] [place] [id number] Lymphocytes/100 WBC (Bld) 32.1 % Normal 20.0-45.0 [facility] Comment on above: Performed By: #### L [id number] #### [facility] ([facility]) [address] [place] [id number] MCH (RBC) [Entitic mass] 29.3 pg Normal 27.0-33.0 [facility] Comment on above: Performed By: #### L [id number] #### [facility] ([facility]ER) [address] [place] [address] MCV (RBC) [Entitic vol] 89.9 fL Normal 82.0-98.0 [facility] Comment on above: Performed By: #### L [id number] #### [facility] ([facility]ER) [address] [place] [address] Monocytes (Bld) [#/Vol] 0.54 10*3/uL Normal 0.10-1.00 [facility] Comment on above: Performed By: #### L [id number] #### [facility] ([facility]ER) [address] [place] [id number] Monocytes/100 WBC (Bld) 9.8 % Normal 5.0-12.0 [facility] Comment on above: Performed By: #### L [id number] #### [facility] ([facility]ER) [address] [place] [address] Neutrophils (Bld) [#/Vol] 2.86 10*3/uL Normal 1.60-7.60 [facility] Comment on above: Performed By: #### L [id number] #### [facility] ([facility]ER) [address] [place] [id number] Neutrophils/100 WBC (Bld) 52.1 % Normal 40.0-72.0 [facility] Comment on above: Performed By: #### L [id number] #### [facility] ([facility]) [address] [place] [address] NRBC (PER 100 WBCS) BY AUTOMATED COUNT 0.0 % Normal 0 [facility] Comment on above: Performed By: #### L [id number] #### [facility] ([facility]) [address] [place] [id number] PLATELETS (10*3/UL) IN BLOOD AUTOMATED COUNT 203 10*3/uL Normal 150-400 [facility] Comment on above: Performed By: #### L [id number] #### [facility] ([facility]) [address] [place] [id number] RBC (Bld) [#/Vol] 3.28 10*6/uL Low 3.80-5.00 [facility] Comment on above: Performed By: #### L [id number] #### [facility] ([facility]) [address] [place] [address] WBC (Bld) [#/Vol] 5.49 10*3/uL Normal 4.00-10.60 [facility] Comment on above: Performed By: #### L [id number] #### [facility] ([facility]) [address] [place] [id number] POCT GLUCOSE METER UNSOLICIT ED RESULTSon 03-18-2025 Glucose [Mass/Vol] 116 mg/dL High 70-105 [facility] Comment on above: Order Comment: Waive d Testing in the ED is performed under the ED CLIA certificate #[id number]. Result Comment: [email or web address] Performed By: #### L [id number] ####[facility] ([facility])[address] [place] [address] Glucose [Mass/Vol] 130 mg/dL High 70-105 [facility] Comment on above: Order Comment: Waive d Testing in the ED is performed under the ED CLIA certificate #[id number]. Result Comment: [email or web address] Performed By: #### L [id number] #### [facility] ([facility]) [address] [place] [address] Glucose [Mass/Vol] 114 mg/dL High 70-105 [facility] Comment on above: Order Comment: Waive d Testing in the ED is performed under the ED CLIA certificate #[id number]. Result Comment: [email or web address] Performed By: #### L [id number] ####[facility] ([facility])[address] [place] [address] 30on 03-17-2024 30 The patient is Moder ately Stable - Low risk of patient condition declining or worsening The patient's goals for the shift include Comfort, rest The clinical goals for the shift include Stable vitals and labs, comfort, rest, safety Normal [facility] BASIC METABOLIC PANELon 02-18 Anion gap [Moles/Vol] 11 mmol/L Normal 7-20 [facility] Comment on above: Performed By: #### L [id number] #### [facility] ([facility]) [address] [place] [address] Calcium [Mass/Vol] 8.6 mg/dL Normal 8.6-10.3 [facility] Comment on above: Performed By: #### L [id number] #### [facility] ([facility]) [address] [place] [address] Chloride [Moles/Vol] 106 mmol/L Normal 98-107 [facility] Comment on above: Performed By: #### L [id number] #### [facility] ([facility] [address] [place] [address] CO2 [Moles/Vol] 23 mmol/L Normal 21-31 [facility] Comment on above: Performed By: #### L [id number] #### [facility] ([facility] [address] [place] [address] Creatinine [Mass/Vol] 3.61 mg/dL High 0.60-1.20 [facility] Comment on above: Performed By: #### L [id number] #### [facility] ([facility]) [address] [place] [address] GLOMERULAR FILTRATION RATE ML/MIN/1.73 SQ M.PREDICTED 12.6 mL/min/1.73m*2 Low >60.0 [facility] Comment on above: Result Comment: [facility]???s estimated glomerular filtration rate (eGFR) will [...] individuals. Performed By: #### L [id number] #### [facility] ([facility]) [address] [place] [address] Glucose [Mass/Vol] 91 mg/dL Normal 70-100 [facility] Comment on above: Performed By: #### L [id number] #### [facility] ([facility]) [address] [place] [address] Potassium [Moles/Vol] 5.0 mmol/L Normal 3.5-5.1 [facility] Comment on above: Performed By: #### L [id number] #### [facility] ([facility]) [address] [place] [address] Sodium [Moles/Vol] 135 mmol/L Low 136-145 [facility] Comment on above: Performed By: #### L [id number] #### [facility] ([facility]) [address] [place] [address] Urea nitrogen [Mass/Vol] 61 mg/dL High 7-25 [facility] Comment on above: Performed By: #### L [id number] #### [facility] ([facility]) [address] [place] [id number] UREA NITROGEN/CREATININE (MASS RATIO) IN SER/PLAS 16.9 Normal [facility] Comment on above: Performed By: #### L [id number] #### [facility] [address] [place] [id number] CBC WITH AUTO DIFFERENTIALon 03-17-2025 Basophils (Bld) [#/Vol] 0.02 10*3/uL Normal 0.00-0.20 [facility] Comment on above: Performed By: #### L [id number] ####[facility] ([facility])[address] [place] [address] Basophils/100 WBC (Bld) 0.3 % Normal 0.0-1.0 [facility] Comment on above: Performed By: #### L [id number] ####[facility] ([facility])[address] [place] [address] Eosinophils (Bld) [#/Vol] 0.21 10*3/uL Normal 0.00-0.50 [facility] Comment on above: Performed By: #### L [id number] ####[facility] ([facility] [place] [address] Eosinophils/100 WBC (Bld) 3.3 % Normal 0.0-6.0 [facility] Comment on above: Performed By: #### L [id number] ####[facility] ([facility] [place] [address] Erythrocyte distribution width (RBC) [Ratio] 16.3 % High 11.5-15.0 [facility] Comment on above: Performed By: #### L [id number] ####[facility] ([facility] [place] [address] ERYTHROCYTE MEAN CORPUSCULAR HEMOGLOBIN CONCENTRATION (G/DL) BY AUTOMATED 33.0 g/dL Normal 32.0-35.0 [facility] Comment on above: Performed By: #### L [id number] ####[facility] ([facility]AKER)[address] [place] [address] Hematocrit (Bld) [Volume fraction] 29.7 % Low 36.0-45.0 [facility] Comment on above: Performed By: #### L [id number] ####[facility] (BEAKER)[address] [place] [id number] Hemoglobin (Bld) [Mass/Vol] 9.8 g/dL Low 12.0-15.0 [facility] Comment on above: Performed By: #### L [id number] ####[facility] ([facility]ER)[address] [place] [address] Immature granulocytes (Bld) [#/Vol] 0.02 10*3/uL Normal 0.00-0.20 [facility] Comment on above: Performed By: #### L [id number] ####[facility] ([facility]ER)[address] [place] [address] Immature granulocytes/100 WBC (Bld) 0.3 % Normal 0.0-1.0 [facility] Comment on above: Performed By: #### L [id number] ####[facility] ([facility]ER)[address] [place] [address] Lymphocytes (Bld) [#/Vol] 1.61 10*3/uL Normal 1.20-4.00 [facility] Comment on above: Performed By: #### L [id number] ####[facility] ([facility]ER)[address] [place] [address] Lymphocytes/100 WBC (Bld) 25.6 % Normal 20.0-45.0 [facility] Comment on above: Performed By: #### L [id number] ####[facility] ([facility]AKER)[address] [place] [address] MCH (RBC) [Entitic mass] 29.3 pg Normal 27.0-33.0 [facility] Comment on above: Performed By: #### L [id number] ####[facility] (BEAKER)[address] [place] [address] MCV (RBC) [Entitic vol] 88.7 fL Normal 82.0-98.0 [facility] Comment on above: Performed By: #### L [id number] ####[facility] ([facility] [place] [address] Monocytes (Bld) [#/Vol] 0.58 10*3/uL Normal 0.10-1.00 [facility] Comment on above: Performed By: #### L [id number] ####[facility] ([facility])[address] [place] [address] Monocytes/100 WBC (Bld) 9.2 % Normal 5.0-12.0 [facility] Comment on above: Performed By: #### L [id number] ####[facility] ([facility])[address] [place] [address] Neutrophils (Bld) [#/Vol] 3.85 10*3/uL Normal 1.60-7.60 [facility] Comment on above: Performed By: #### L [id number] ####[facility] ([facility])[address] [place] [address] Neutrophils/100 WBC (Bld) 61.3 % Normal 40.0-72.0 [facility] Comment on above: Performed By: #### L [id number] ####[facility] ([facility] [place] [address] NRBC (PER 100 WBCS) BY AUTOMATED COUNT 0.0 % Normal 0 [facility] Comment on above: Performed By: #### L [id number] ####[facility] ([facility] [place] [address] PLATELETS (10*3/UL) IN BLOOD AUTOMATED COUNT 199 10*3/uL Normal 150-400 [facility] Comment on above: Performed By: #### L [id number] ####[facility] ([facility] [place] [address] RBC (Bld) [#/Vol] 3.35 10*6/uL Low 3.80-5.00 [facility] Comment on above: Performed By: #### L [id number] ####[facility] ([facility])[address] [place] [address] WBC (Bld) [#/Vol] 6.29 10*3/uL Normal 4.00-10.60 [facility] Comment on above: Performed By: #### L [id number] ####[facility] ([facility])[address] [place] [address] CONSULTon 03-17-2025 CONSULT discharge planning: to Home [...] mass referral for HHC; referrals sent via [employer] system - Patient agreeable to reviewing printed listing of HHC providers so can provide Agency of Choice once accepting HHC providers found discharge barriers: [] need HHC choices, then accepting [] will need insurance precert for any placement from this admission [] Normal [facility] POCT GLUCOSE METER UNSOLICIT ED RESULTSon 03-17-2025 Glucose [Mass/Vol] 121 mg/dL High 70-105 [facility] Comment on above: Order Comment: Waive d Testing in the ED is performed under the ED CLIA certificate #[id number]. Result Comment: [email or web address] Performed By: #### L [id number] #### [facility] ([facility]) [address] [place] [address] Glucose [Mass/Vol] 148 mg/dL High 70-105 [facility] Comment on above: Order Comment: Waive d Testing in the ED is performed under the ED CLIA certificate #[id number]. Result Comment: [email or web address] Performed By: #### L [id number] #### [facility] ([facility]) [address] [place] [address] Glucose [Mass/Vol] 161 mg/dL High 70-105 [facility] Comment on above: Order Comment: Waive d Testing in the ED is performed under the ED CLIA certificate #[id number]. Result Comment: [email or web address] Performed By: #### L [id number] #### [facility] ([facility] [address] [place] [address] BASIC METABOLIC PANELon 06-2 Anion gap [Moles/Vol] 10 mmol/L Normal 7-20 [facility] Comment on above: Performed By: #### L [id number] ####[facility] ([facility])[address] [place] [address] Calcium [Mass/Vol] 8.6 mg/dL Normal 8.6-10.3 [facility] Comment on above: Performed By: #### L [id number] ####[facility] ([facility])[address] [place] [address] Chloride [Moles/Vol] 106 mmol/L Normal 98-107 [facility] Comment on above: Performed By: #### L [id number] ####[facility] ([facility])[address] [place] [address] CO2 [Moles/Vol] 23 mmol/L Normal 21-31 [facility] Comment on above: Performed By: #### L [id number] ####[facility] ([facility] [place] [address] Creatinine [Mass/Vol] 3.39 mg/dL High 0.60-1.20 [facility] Comment on above: Performed By: #### L [id number] ####[facility] ([facility])[address] [place] [address] GLOMERULAR FILTRATION RATE ML/MIN/1.73 SQ M.PREDICTED 13.6 mL/min/1.73m*2 Low >60.0 [facility] Comment on above: Result Comment: [facility]???s estimated glomerular filtration rate (eGFR) will [...] of individuals. Performed By: #### L [id number] ####[facility] [facility] ([facility])[address] [facility] [place] [address] Glucose [Mass/Vol] 101 mg/dL High 70-100 [facility] Comment on above: Performed By: #### L [id number] ####[facility] ([facility])[address] [place] [address] Potassium [Moles/Vol] 4.5 mmol/L Normal 3.5-5.1 [facility] Comment on above: Performed By: #### L [id number] ####[facility] ([facility])[address] [place] [address] Sodium [Moles/Vol] 134 mmol/L Low 136-145 [facility] Comment on above: Performed By: #### L [id number] ####[facility] ([facility])[address] [place] [address] Urea nitrogen [Mass/Vol] 53 mg/dL High 7-25 [facility] Comment on above: Performed By: #### L [id number] ####[facility] ([facility])[address] [place] [address] UREA NITROGEN/CREATININE (MASS RATIO) IN SER/PLAS 15.6 Normal [facility] Comment on above: Performed By: #### L [id number] ####[facility] ([facility])[address] [place] [address] CBC WITH AUTO DIFFERENTIALon 03-16-2025 Basophils (Bld) [#/Vol] 0.03 10*3/uL Normal 0.00-0.20 [facility] Comment on above: Performed By: #### L [id number] #### [facility] ([facility]) [address] [place] [id number] Basophils/100 WBC (Bld) 0.6 % Normal 0.0-1.0 [facility] Comment on above: Performed By: #### L [id number] #### [facility] ([facility]) [address] [place] [id number] Eosinophils (Bld) [#/Vol] 0.21 10*3/uL Normal 0.00-0.50 [facility] Comment on above: Performed By: #### L [id number] #### [facility] ([facility]) [address] [place] [id number] Eosinophils/100 WBC (Bld) 4.0 % Normal 0.0-6.0 [facility] Comment on above: Performed By: #### L [id number] #### [facility] ([facility]) [address] [place] [id number] Erythrocyte distribution width (RBC) [Ratio] 16.3 % High 11.5-15.0 [facility] Comment on above: Performed By: #### L [id number] #### [facility] ([facility]) [address] [place] [id number] ERYTHROCYTE MEAN CORPUSCULAR HEMOGLOBIN CONCENTRATION (G/DL) BY AUTOMATED 32.9 g/dL Normal 32.0-35.0 [facility] Comment on above: Performed By: #### L [id number] #### [facility] (BEAK[facility]) [address] [place] [id number] Hematocrit (Bld) [Volume fraction] 31.6 % Low 36.0-45.0 [facility] Comment on above: Performed By: #### L [id number] #### [facility] ([facility]) [address] [place] [address] Hemoglobin (Bld) [Mass/Vol] 10.4 g/dL Low 12.0-15.0 [facility] Comment on above: Performed By: #### L [id number] #### [facility] ([facility]ER) [address] [place] [address] Immature granulocytes (Bld) [#/Vol] 0.01 10*3/uL Normal 0.00-0.20 [facility] Comment on above: Performed By: #### L [id number] #### [facility] (BEAKER) [address] [place] [address] Immature granulocytes/100 WBC (Bld) 0.2 % Normal 0.0-1.0 [facility] Comment on above: Performed By: #### L [id number] #### [facility] ([facility]) [address] [place] [address] Lymphocytes (Bld) [#/Vol] 1.52 10*3/uL Normal 1.20-4.00 [facility] Comment on above: Performed By: #### L [id number] #### [facility] ([facility]) [address] [place] [address] Lymphocytes/100 WBC (Bld) 28.8 % Normal 20.0-45.0 [facility] Comment on above: Performed By: #### L [id number] #### [facility] ([facility]) [address] [place] [address] MCH (RBC) [Entitic mass] 29.5 pg Normal 27.0-33.0 [facility] Comment on above: Performed By: #### L [id number] #### [facility] [address] [place] [address] MCV (RBC) [Entitic vol] 89.5 fL Normal 82.0-98.0 [facility] Comment on above: Performed By: #### L [id number] #### [facility] [address] [place] [address] Monocytes (Bld) [#/Vol] 0.53 10*3/uL Normal 0.10-1.00 [facility] Comment on above: Performed By: #### L [id number] #### [facility] (BEAKER) [address] [place] [address] Monocytes/100 WBC (Bld) 10.0 % Normal 5.0-12.0 [facility] Comment on above: Performed By: #### L [id number] #### [facility] ([facility]) [address] [place] [address] Neutrophils (Bld) [#/Vol] 2.98 10*3/uL Normal 1.60-7.60 [facility] Comment on above: Performed By: #### L [id number] #### [facility] ([facility]) [address] [place] [address] Neutrophils/100 WBC (Bld) 56.4 % Normal 40.0-72.0 [facility] Comment on above: Performed By: #### L [id number] #### [facility] ([facility]) [address] [place] [address] NRBC (PER 100 WBCS) BY AUTOMATED COUNT 0.0 % Normal 0 [facility] Comment on above: Performed By: #### L [id number] #### [facility] ([facility]) [address] [place] [id number] PLATELETS (10*3/UL) IN BLOOD AUTOMATED COUNT 226 10*3/uL Normal 150-400 [facility] Comment on above: Performed By: #### L [id number] #### [facility] ([facility]) [address] [place] [address] RBC (Bld) [#/Vol] 3.53 10*6/uL Low 3.80-5.00 [facility] Comment on above: Performed By: #### L [id number] #### [facility] ([facility]) [address] [place] [address] WBC (Bld) [#/Vol] 5.28 10*3/uL Normal 4.00-10.60 [facility] Comment on above: Performed By: #### L [id number] #### [facility] ([facility]) [address] [place] [address] POCT GLUCOSE METER UNSOLICIT ED RESULTSon 03-16-2025 Glucose [Mass/Vol] 102 mg/dL Normal 70-105 [facility] Comment on above: Order Comment: Waive d Testing in the ED is performed under the ED CLIA certificate #[id number]. Result Comment: [email or web address] Performed By: #### L [id number] ####[facility] ([facility] [place] [address] Glucose [Mass/Vol] 95 mg/dL Normal 70-105 [facility] Comment on above: Order Comment: Waive d Testing in the ED is performed under the ED CLIA certificate #[id number]. Result Comment: asto neking Performed By: #### L [id number] #### [facility] ([facility]) [address] [place] [address] Glucose [Mass/Vol] 130 mg/dL High 70-105 [facility] Comment on above: Order Comment: Waive d Testing in the ED is performed under the ED CLIA certificate #[id number]. Result Comment: asto neking Performed By: #### L [id number] ####[facility] ([facility])[address] [place] [address] Glucose [Mass/Vol] 102 mg/dL Normal 70-105 [facility] Comment on above: Order Comment: Waive d Testing in the ED is performed under the ED CLIA certificate #[id number]. Result Comment: asto neking Performed By: #### L [id number] ####[facility] ([facility])[address] [place] [address] BASIC METABOLIC PANELon 06-2 Anion gap [Moles/Vol] 10 mmol/L Normal 7-20 [facility] Comment on above: Performed By: #### L [id number] #### [facility] ([facility]) [address] [place] [address] Calcium [Mass/Vol] 8.9 mg/dL Normal 8.6-10.3 [facility] Comment on above: Performed By: #### L [id number] #### [facility] [address] [place] [address] Chloride [Moles/Vol] 104 mmol/L Normal 98-107 [facility] Comment on above: Performed By: #### L [id number] #### [facility] ([facility]) [address] [place] [address] CO2 [Moles/Vol] 24 mmol/L Normal 21-31 [facility] Comment on above: Performed By: #### L [id number] #### [facility] ([facility]) [address] [place] [address] Creatinine [Mass/Vol] 3.21 mg/dL High 0.60-1.20 [facility] Comment on above: Performed By: #### L [id number] #### [facility] ([facility]) [address] [place] [address] GLOMERULAR FILTRATION RATE ML/MIN/1.73 SQ M.PREDICTED 14.5 mL/min/1.73m*2 Low >60.0 [facility] Comment on above: Result Comment: [facility]???s estimated glomerular filtration rate (eGFR) will [...] individuals. Performed By: #### L [id number] #### [facility] ([facility]) [address] [place] [address] Glucose [Mass/Vol] 103 mg/dL High 70-100 [facility] Comment on above: Performed By: #### L [id number] #### [facility] ([facility]) [address] [place] [address] Potassium [Moles/Vol] 4.7 mmol/L Normal 3.5-5.1 [facility] Comment on above: Performed By: #### L [id number] #### [facility] ([facility]) [address] [place] [address] Sodium [Moles/Vol] 133 mmol/L Low 136-145 [facility] Comment on above: Performed By: #### L [id number] #### [facility] ([facility]) [address] [place] [address] Urea nitrogen [Mass/Vol] 45 mg/dL High 7-25 [facility] Comment on above: Performed By: #### L [id number] #### [facility] ([facility]) [address] [place] [address] UREA NITROGEN/CREATININE (MASS RATIO) IN SER/PLAS 14.0 Normal [facility] Comment on above: Performed By: #### L [id number] #### [facility] ([facility]) [address] [place] [address] CBC WITH AUTO DIFFERENTIALon 03-15-2025 Basophils (Bld) [#/Vol] 0.05 10*3/uL Normal 0.00-0.20 [facility] Comment on above: Performed By: #### L [id number] #### [facility] ([facility]) [address] [place] [address] Basophils/100 WBC (Bld) 0.8 % Normal 0.0-1.0 [facility] Comment on above: Performed By: #### L [id number] #### [facility] ([facility]) [address] [place] [address] Eosinophils (Bld) [#/Vol] 0.26 10*3/uL Normal 0.00-0.50 [facility] Comment on above: Performed By: #### L [id number] #### [facility] [address] [place] [address] Eosinophils/100 WBC (Bld) 4.1 % Normal 0.0-6.0 [facility] Comment on above: Performed By: #### L [id number] #### [facility] ([facility]) [address] [place] [id number] Erythrocyte distribution width (RBC) [Ratio] 16.1 % High 11.5-15.0 [facility] Comment on above: Performed By: #### L [id number] #### [facility] ([facility]) [address] [place] [id number] ERYTHROCYTE MEAN CORPUSCULAR HEMOGLOBIN CONCENTRATION (G/DL) BY AUTOMATED 32.8 g/dL Normal 32.0-35.0 [facility] Comment on above: Performed By: #### L [id number] #### [facility] ([facility]) [address] [place] [address] Hematocrit (Bld) [Volume fraction] 34.5 % Low 36.0-45.0 [facility] Comment on above: Performed By: #### L [id number] #### [facility] ([facility]) [address] [place] [address] Hemoglobin (Bld) [Mass/Vol] 11.3 g/dL Low 12.0-15.0 [facility] Comment on above: Performed By: #### L [id number] #### [facility] ([facility]) [address] [place] [address] Immature granulocytes (Bld) [#/Vol] 0.02 10*3/uL Normal 0.00-0.20 [facility] Comment on above: Performed By: #### L [id number] #### [facility] ([facility]) [address] [place] [address] Immature granulocytes/100 WBC (Bld) 0.3 % Normal 0.0-1.0 [facility] Comment on above: Performed By: #### L [id number] #### [facility] ([facility]) [address] [place] [address] Lymphocytes (Bld) [#/Vol] 1.80 10*3/uL Normal 1.20-4.00 [facility] Comment on above: Performed By: #### L [id number] #### [facility] ([facility]) [address] [place] [address] Lymphocytes/100 WBC (Bld) 28.3 % Normal 20.0-45.0 [facility] Comment on above: Performed By: #### L [id number] #### [facility] (BEAKER) [address] [place] [address] MCH (RBC) [Entitic mass] 29.0 pg Normal 27.0-33.0 [facility] Comment on above: Performed By: #### L [id number] #### [facility] (BEAKER) [address] [place] [address] MCV (RBC) [Entitic vol] 88.5 fL Normal 82.0-98.0 [facility] Comment on above: Performed By: #### L [id number] #### [facility] [address] [place] [address] Monocytes (Bld) [#/Vol] 0.67 10*3/uL Normal 0.10-1.00 [facility] Comment on above: Performed By: #### L [id number] #### [facility] (BEAKER) [address] [place] [address] Monocytes/100 WBC (Bld) 10.5 % Normal 5.0-12.0 [facility] Comment on above: Performed By: #### L [id number] #### [facility] ([facility]) [address] [place] [address] Neutrophils (Bld) [#/Vol] 3.57 10*3/uL Normal 1.60-7.60 [facility] Comment on above: Performed By: #### L [id number] #### [facility] (BEAKER) [address] [place] [address] Neutrophils/100 WBC (Bld) 56.0 % Normal 40.0-72.0 [facility] Comment on above: Performed By: #### L [id number] #### [facility] ([facility]) [address] [place] [address] NRBC (PER 100 WBCS) BY AUTOMATED COUNT 0.0 % Normal 0 [facility] Comment on above: Performed By: #### L [id number] #### [facility] ([facility]) [address] [place] [address] PLATELETS (10*3/UL) IN BLOOD AUTOMATED COUNT 259 10*3/uL Normal 150-400 [facility] Comment on above: Performed By: #### L [id number] #### [facility] ([facility]) [address] [facility] [place] [address] RBC (Bld) [#/Vol] 3.90 10*6/uL Normal 3.80-5.00 [facility] Comment on above: Performed By: #### L [id number] #### [facility] ([facility]) [address] [place] [address] WBC (Bld) [#/Vol] 6.37 10*3/uL Normal 4.00-10.60 [facility] Comment on above: Performed By: #### L [id number] #### [facility] ([facility]) [address] [place] [address] POCT GLUCOSE METER UNSOLICIT ED RESULTSon 03-15-2025 Glucose [Mass/Vol] 107 mg/dL High 70-105 [facility] Comment on above: Order Comment: Waive d Testing in the ED is performed under the ED CLIA certificate #[id number]. Result Comment: lraf tis Performed By: #### L [id number] #### [facility] ([facility]) [address] [place] [address] 30on 03-14-2025 30 The patient is Moder ately Unstable - Medium risk of patient condition declining or worsening The patient's goals for the shift include comfort/rest The clinical goals for the shift include stable vital signs Normal [facility] ALDOSTERONEon 03-14-2025 ALDOSTERONE (NG/DL) IN SER/PLAS 16.7 ng/dL Normal [facility] Comment on above: Order Comment: Conta cted RN arik and explained the collection process [...] reference intervals for this test in the [facility] ([employer]). Performed By: [employer] [address] [place] [id number] [employer]: Wilfrid Gomez MD, PhD CLIA Number: [id number] Performed By: #### L [id number] #### [facility] ([facility] [address] [place] [address] BASIC METABOLIC PANELon 06-2 Anion gap [Moles/Vol] 12 mmol/L Normal 7-20 [facility] Comment on above: Performed By: #### L [id number] ####[facility] (BEAKER)[address] [place] [address] Calcium [Mass/Vol] 8.2 mg/dL Low 8.6-10.3 [facility] Comment on above: Performed By: #### L [id number] ####[facility] (BEAKER)[address] [place] [address] Chloride [Moles/Vol] 104 mmol/L Normal 98-107 [facility] Comment on above: Performed By: #### L [id number] ####[facility] (BEAKER)[address] [place] [address] CO2 [Moles/Vol] 21 mmol/L Normal 21-31 [facility] Comment on above: Performed By: #### L [id number] ####[facility] ([facility])[address] [place] [id number] Creatinine [Mass/Vol] 3.12 mg/dL High 0.60-1.20 [facility] Comment on above: Performed By: #### L [id number] ####[facility] ([facility])[address] [place] [id number] GLOMERULAR FILTRATION RATE ML/MIN/1.73 SQ M.PREDICTED 15.0 mL/min/1.73m*2 Low >60.0 [facility] Comment on above: Result Comment: [facility]???s estimated glomerular filtration rate (eGFR) will [...] of individuals. Performed By: #### L [id number] ####[facility] ([facility])[address] [place] [id number] Glucose [Mass/Vol] 103 mg/dL High 70-100 [facility] Comment on above: Performed By: #### L [id number] ####[facility] ([facility])[address] [place] [address] Potassium [Moles/Vol] 5.0 mmol/L Normal 3.5-5.1 [facility] Comment on above: Performed By: #### L [id number] ####[facility] ([facility])[address] [place] [address] Sodium [Moles/Vol] 132 mmol/L Low 136-145 [facility] Comment on above: Performed By: #### L [id number] ####[facility] ([facility] [place] [address] Urea nitrogen [Mass/Vol] 46 mg/dL High 7-25 [facility] Comment on above: Performed By: #### L [id number] ####[facility] ([facility])[address] [place] [address] UREA NITROGEN/CREATININE (MASS RATIO) IN SER/PLAS 14.7 Normal [facility] Comment on above: Performed By: #### L [id number] ####[facility] ([facility] [place] [address] CBC WITH AUTO DIFFERENTIALon 03-14-2025 Basophils (Bld) [#/Vol] 0.06 10*3/uL Normal 0.00-0.20 [facility] Comment on above: Performed By: #### L [id number] ####[facility] ([facility])[address] [place] [address] Basophils/100 WBC (Bld) 1.1 % High 0.0-1.0 [facility] Comment on above: Performed By: #### L [id number] ####[facility] ([facility])[address] [place] [address] Eosinophils (Bld) [#/Vol] 0.26 10*3/uL Normal 0.00-0.50 [facility] Comment on above: Performed By: #### L [id number] ####[facility] ([facility])[address] [place] [address] Eosinophils/100 WBC (Bld) 4.8 % Normal 0.0-6.0 [facility] Comment on above: Performed By: #### L [id number] ####[facility] ([facility])[address] [place] [address] Erythrocyte distribution width (RBC) [Ratio] 16.4 % High 11.5-15.0 [facility] Comment on above: Performed By: #### L [id number] ####[facility] ([facility] [place] [address] ERYTHROCYTE MEAN CORPUSCULAR HEMOGLOBIN CONCENTRATION (G/DL) BY AUTOMATED 32.2 g/dL Normal 32.0-35.0 [facility] Comment on above: Performed By: #### L [id number] ####[facility] (BEAKER)[address] [place] [id number] Hematocrit (Bld) [Volume fraction] 33.9 % Low 36.0-45.0 [facility] Comment on above: Performed By: #### L [id number] ####[facility] (BEAKER)[address] [place] [id number] Hemoglobin (Bld) [Mass/Vol] 10.9 g/dL Low 12.0-15.0 [facility] Comment on above: Performed By: #### L [id number] ####[facility] (BEAKER)[address] [place] [id number] Immature granulocytes (Bld) [#/Vol] 0.02 10*3/uL Normal 0.00-0.20 [facility] Comment on above: Performed By: #### L [id number] ####[facility] (BEAKER)[address] [place] [address] Immature granulocytes/100 WBC (Bld) 0.4 % Normal 0.0-1.0 [facility] Comment on above: Performed By: #### L [id number] ####[facility] (BEAKER)[address] [place] [id number] Lymphocytes (Bld) [#/Vol] 1.46 10*3/uL Normal 1.20-4.00 [facility] Comment on above: Performed By: #### L [id number] ####[facility] (BEAKER)[address] [place] [address] Lymphocytes/100 WBC (Bld) 27.1 % Normal 20.0-45.0 [facility] Comment on above: Performed By: #### L [id number] ####[facility] (BEAKER)[address] [place] [id number] MCH (RBC) [Entitic mass] 29.2 pg Normal 27.0-33.0 [facility] Comment on above: Performed By: #### L [id number] ####[facility] (BEAKER)[address] [place] [address] MCV (RBC) [Entitic vol] 90.9 fL Normal 82.0-98.0 [facility] Comment on above: Performed By: #### L [id number] ####[facility] ([facility])[address] [place] [address] Monocytes (Bld) [#/Vol] 0.63 10*3/uL Normal 0.10-1.00 [facility] Comment on above: Performed By: #### L [id number] ####[facility] ([facility])[address] [place] [address] Monocytes/100 WBC (Bld) 11.7 % Normal 5.0-12.0 [facility] Comment on above: Performed By: #### L [id number] ####[facility] ([facility])[address] [place] [address] Neutrophils (Bld) [#/Vol] 2.96 10*3/uL Normal 1.60-7.60 [facility] Comment on above: Performed By: #### L [id number] ####[facility] ([facility])[address] [place] [address] Neutrophils/100 WBC (Bld) 54.9 % Normal 40.0-72.0 [facility] Comment on above: Performed By: #### L [id number] ####[facility] ([facility])[address] [place] [address] NRBC (PER 100 WBCS) BY AUTOMATED COUNT 0.0 % Normal 0 [facility] Comment on above: Performed By: #### L [id number] ####[facility] ([facility])[address] [place] [address] PLATELETS (10*3/UL) IN BLOOD AUTOMATED COUNT 207 10*3/uL Normal 150-400 [facility] Comment on above: Performed By: #### L [id number] ####[facility] [place] [address] RBC (Bld) [#/Vol] 3.73 10*6/uL Low 3.80-5.00 [facility] Comment on above: Performed By: #### L [id number] ####[facility] ([facility])[address] [place] [address] WBC (Bld) [#/Vol] 5.39 10*3/uL Normal 4.00-10.60 [facility] Comment on above: Performed By: #### L [id number] ####[facility] ([facility])[address] [place] [address] POCT GLUCOSE METER UNSOLICIT ED RESULTSon 03-14-2025 Glucose [Mass/Vol] 109 mg/dL High 70-105 [facility] Comment on above: Order Comment: Waive d Testing in the ED is performed under the ED CLIA certificate #[id number]. Result Comment: valerie itn Performed By: #### L [id number] ####[facility] ([facility])[address] [place] [address] Glucose [Mass/Vol] 128 mg/dL High 70-105 [facility] Comment on above: Order Comment: Waive d Testing in the ED is performed under the ED CLIA certificate #[id number]. Result Comment: [email or web address] Performed By: #### L [id number] #### [facility] ([facility]) [address] [place] [address] Glucose [Mass/Vol] 155 mg/dL High 70-105 [facility] Comment on above: Order Comment: Waive d Testing in the ED is performed under the ED CLIA certificate #[id number]. Result Comment: [email or web address] Performed By: #### L [id number] #### [facility] ([facility]) [address] [place] [address] Glucose [Mass/Vol] 109 mg/dL High 70-105 [facility] Comment on above: Order Comment: Waive d Testing in the ED is performed under the ED CLIA certificate #[id number]. Result Comment: [email or web address] Performed By: #### L [id number] #### [facility] ([facility]ER) [address] [place] [address] RENIN ACTIVITYon 03-14-2025 RENIN ACTIVITY 4.7 ng/mL/hr Normal [facility] Comment on above: Order Comment: [...] developed and its performance characteristics determined by [employer]. It has not been cleared or approved by the US Food and Drug Administration. This test was performed in a CLIA certified laboratory and is intended for clinical purposes. Performed By: [facility] [address] [place] [address] [employer]: Wilfrid Gomez MD, PhD CLIA Number: [id number] Performed By: #### L [id number] ####[facility] (BEAKER)[address] [place] [address] 30on 03-13-2025 30 The patient is Moder [...] coordinate with support and continued care. Normal [facility] 30 The patient is Moder ately [...] optimal renal function maintained Outcome: Progressing Normal [facility] 30 The patient is Moder ately Stable - Low risk of patient condition declining or worsening The patient's goals for the shift include comfort and sleep The clinical goals for the shift include Stable vital signs, no falls, comfort Normal [facility] BASIC METABOLIC PANELon 06- Anion gap [Moles/Vol] 11 mmol/L Normal 7-20 [facility] Comment on above: Performed By: #### L [id number] #### [facility] [address] [place] [address] Calcium [Mass/Vol] 8.8 mg/dL Normal 8.6-10.3 [facility] Comment on above: Performed By: #### L [id number] #### [facility] [address] [place] [address] Chloride [Moles/Vol] 106 mmol/L Normal 98-107 [facility] Comment on above: Performed By: #### L [id number] #### [facility] ([facility]) [address] [place] [address] CO2 [Moles/Vol] 25 mmol/L Normal 21-31 [facility] Comment on above: Performed By: #### L [id number] #### [facility] ([facility]) [address] [place] [address] Creatinine [Mass/Vol] 2.41 mg/dL High 0.60-1.20 [facility] Comment on above: Performed By: #### L [id number] #### [facility] ([facility]) [address] [place] [address] GLOMERULAR FILTRATION RATE ML/MIN/1.73 SQ M.PREDICTED 20.4 mL/min/1.73m*2 Low >60.0 [facility] Comment on above: Result Comment: [facility]???s estimated glomerular filtration rate (eGFR) will [...] individuals. Performed By: #### L [id number] #### [facility] ([facility] [address] [place] [address] Glucose [Mass/Vol] 82 mg/dL Normal 70-100 [facility] Comment on above: Performed By: #### L [id number] #### [facility] ([facility]) [address] [place] [address] Potassium [Moles/Vol] 3.9 mmol/L Normal 3.5-5.1 [facility] Comment on above: Performed By: #### L [id number] #### [facility] ([facility]) [address] [place] [address] Sodium [Moles/Vol] 138 mmol/L Normal 136-145 [facility] Comment on above: Performed By: #### L [id number] #### [facility] ([facility]) [address] [place] [address] Urea nitrogen [Mass/Vol] 38 mg/dL High 7-25 [facility] Comment on above: Performed By: #### L [id number] #### [facility] ([facility]) [address] [place] [address] UREA NITROGEN/CREATININE (MASS RATIO) IN SER/PLAS 15.8 Normal [facility] Comment on above: Performed By: #### L [id number] #### [facility] ([facility]) [address] [place] [address] CBC WITH AUTO DIFFERENTIALon 03-13-2025 Basophils (Bld) [#/Vol] 0.05 10*3/uL Normal 0.00-0.20 [facility] Comment on above: Performed By: #### L [id number] #### [facility] ([facility]) [address] [place] [address] Basophils/100 WBC (Bld) 1.0 % Normal 0.0-1.0 [facility] Comment on above: Performed By: #### L [id number] #### [facility] ([facility]) [address] [place] [address] Eosinophils (Bld) [#/Vol] 0.14 10*3/uL Normal 0.00-0.50 [facility] Comment on above: Performed By: #### L [id number] #### [facility] (BEAKER) [address] [address] Eosinophils/100 WBC (Bld) 2.7 % Normal 0.0-6.0 [facility] Comment on above: Performed By: #### L [id number] #### [facility] ([facility]) [address] [place] [address] Erythrocyte distribution width (RBC) [Ratio] 16.6 % High 11.5-15.0 [facility] Comment on above: Performed By: #### L [id number] #### [facility] ([facility]) [address] [place] [address] ERYTHROCYTE MEAN CORPUSCULAR HEMOGLOBIN CONCENTRATION (G/DL) BY AUTOMATED 32.4 g/dL Normal 32.0-35.0 [facility] Comment on above: Performed By: #### L [id number] #### [facility] ([facility]) [address] [address] Hematocrit (Bld) [Volume fraction] 34.9 % Low 36.0-45.0 [facility] Comment on above: Performed By: #### L [id number] #### [facility] ([facility]) [address] [address] Hemoglobin (Bld) [Mass/Vol] 11.3 g/dL Low 12.0-15.0 [facility] Comment on above: Performed By: #### L [id number] #### [facility] ([facility] [address] [place] [address] Immature granulocytes (Bld) [#/Vol] 0.01 10*3/uL Normal 0.00-0.20 [facility] Comment on above: Performed By: #### L [id number] #### [facility] (BEAKER) [address] [place] [address] Immature granulocytes/100 WBC (Bld) 0.2 % Normal 0.0-1.0 [facility] Comment on above: Performed By: #### L [id number] #### [facility] (BE[facility]ER) [address] [place] [id number] Lymphocytes (Bld) [#/Vol] 1.51 10*3/uL Normal 1.20-4.00 [facility] Comment on above: Performed By: #### L [id number] #### [facility] (BEAKER) [address] [place] [id number] Lymphocytes/100 WBC (Bld) 28.8 % Normal 20.0-45.0 [facility] Comment on above: Performed By: #### L [id number] #### [facility] ([facility]) [address] [place] [id number] MCH (RBC) [Entitic mass] 29.6 pg Normal 27.0-33.0 [facility] Comment on above: Performed By: #### L [id number] #### [facility] ([facility] [address] [place] [id number] MCV (RBC) [Entitic vol] 91.4 fL Normal 82.0-98.0 [facility] Comment on above: Performed By: #### L [id number] #### [facility] ([facility]) [address] [place] [id number] Monocytes (Bld) [#/Vol] 0.71 10*3/uL Normal 0.10-1.00 [facility] Comment on above: Performed By: #### L [id number] #### [facility] ([facility]) [address] [place] [id number] Monocytes/100 WBC (Bld) 13.5 % High 5.0-12.0 [facility] Comment on above: Performed By: #### L [id number] #### [facility] ([facility]AKER) [address] [place] [id number] Neutrophils (Bld) [#/Vol] 2.82 10*3/uL Normal 1.60-7.60 [facility] Comment on above: Performed By: #### L [id number] #### [facility] ([facility]ER) [address] [place] [address] Neutrophils/100 WBC (Bld) 53.8 % Normal 40.0-72.0 [facility] Comment on above: Performed By: #### L [id number] #### [facility] ([facility]) [address] [place] [address] NRBC (PER 100 WBCS) BY AUTOMATED COUNT 0.0 % Normal 0 [facility] Comment on above: Performed By: #### L [id number] #### [facility] ([facility]) [address] [facility] [place] [address] PLATELETS (10*3/UL) IN BLOOD AUTOMATED COUNT 223 10*3/uL Normal 150-400 [facility] Comment on above: Performed By: #### L [id number] #### [facility] ([facility]) [address] [place] [address] RBC (Bld) [#/Vol] 3.82 10*6/uL Normal 3.80-5.00 [facility] Comment on above: Performed By: #### L [id number] #### [facility] ([facility]) [address] [place] [address] WBC (Bld) [#/Vol] 5.24 10*3/uL Normal 4.00-10.60 [facility] Comment on above: Performed By: #### L [id number] #### [facility] ([facility]) [address] [facility] [place] [address] CONSULTon 03-13-2025 CONSULT Cardiology Consult N ote Reason for Consult: NSTEMI, hypertensive emergency HPI: Marleni Dennis is a 74 y.o. female past medical history of CAD with CABG (MAJANO to LAD, LISSETH to PDA, radial graft to OM) 1998 s/p stent to left main LAD and mid circumflex 2016, PVD status post bilateral common iliac stenting, hypertension, renal artery stenosis, history of DVT/PE, CKD stage IV, LEE. Transfer from [facility] for management of NSTEMI. Patient gives [...] shortness of breath. She was taken to [facility] and was found to have high systolic blood pressure of 250. Troponin was 243-->324-->419. In [place] she got 2 doses of hydralazine and was also started on nitro drip with no improvement in the blood pressure and was given IV labetalol and was transferred to [facility] for suspected NSTEMI. CT brain was negative. [...] Pneumovax-23 [pneumococcal 23-cruz ps vaccine], Red dye, Sshclfn-wku-mjm reductase inhibitors, and Varenicline Medications Current Outpatient [...] -- -- -- -- 03/13/25 0301 (!) 36.1 ???C (97 ???F) Temporal 77 17 94 % -- -- 03/13/25 0300 (!) -- -- 81 18 94 % -- [...] Value Ventricular Rate 71 Atrial Rate 71 AK Interval 158 QRS DURATION 100 QT Interval 464 QTC CALCULATION(BAZETT) 504 P [place] 10 R-[place] 2 T Wave [place] 160 Impression Normal (more content not included)... Normal [facility] CONSULT Nephrology Consult N ote Patient : Marleni Dennis; 74 y.o. Location: 4108/4108-01 Attending: Erickson Cabrera MD Admit Date: 03/13/2025 Hospital Day: 0 Reason for Consult: CKD IV with uncontrolled hypertension. History of Present Illness: Marleni Dennis is a 74 y.o. female who was transferred from [facility] after presenting with weakness after a fall as well as uncontrolled hypertension. She has pertinent past medical history of hypertension secondary to renal artery stenosis, CKD IV, CAD s/p CABG and PCI with stent placement, obstructive sleep apnea. She presented to [place] ER after a fall after showering as [...] does not regularly follow up with a hip hop dancer. She says she has a water pill [...] Dose Status apixaban (Eliquis) 2.5 mg tablet [id number] TAKE 1 TABLET BY MOUTH TWICE A DAY FOR 90 DAYS Historical ProviderMD Active aspirin 81 mg EC tablet [id number] Take 1 tablet every day by oral route. Historical ProviderMD Flag for Review buPROPion (Wellbutrin) 75 mg tablet [id number] Yes Take 75 mg by mouth twice a day. Historical Provider, Active carvedilol (Coreg) 12.5 mg tablet [id number] No Take 25 mg by mouth with breakfast and with eveni (more content not included)... Normal [facility] CORTISOLon 03-13-2025 CORTISOL (UG/DL) IN SER/PLAS 8.8 ug/dL Normal 6-23 [facility] Comment on above: Performed By: #### L [id number] ####[facility] ([facility] [place] [address] HIGH SENSITIVITY TROPONIN Io n 03-13-2025 HS TROPONIN I (NG/L) 215 ng/L Critically high <15 [facility] Comment on above: Performed By: #### L [id number] #### [facility] ([facility]) [address] [place] [address] HS TROPONIN I (NG/L) 223 ng/L Critically high <15 [facility] Comment on above: Performed By: #### L [id number] ####[facility] (BEAKER)[address] [place] [address] HS TROPONIN I (NG/L) 228 ng/L Critically high <15 [facility] Comment on above: Performed By: #### L [id number] #### [facility] (BEAKER) [address] [place] [address] MAGNESIUMon 03-13-2025 Magnesium [Mass/Vol] 2.8 mg/dL High 1.9-2.7 [facility] Comment on above: Performed By: #### L [id number] #### [facility] (BEAKER) [address] [place] [address] Magnesium [Mass/Vol] 1.2 mg/dL Low 1.9-2.7 [facility] Comment on above: Performed By: #### L [id number] #### [facility] (BEAKER) [address] [place] [address] NURSNOTEon 03-13-2025 NURSNOTE Fasting blood glucos e is 79 mg/dl. Requesting ID band from registration. Orders noted, diet and water provided to patient. Will review BP and pain to patient's right head with on-call provider. Normal [facility] POCT GLUCOSE METER UNSOLICIT ED RESULTSon 03-13-2025 Glucose [Mass/Vol] 128 mg/dL High 70-105 [facility] Comment on above: Order Comment: Waive d Testing in the ED is performed under the ED CLIA certificate #[id number]. Result Comment: [email or web address] Performed By: #### L [id number] ####[facility] ([facility])[address] [place] [address] Glucose [Mass/Vol] 133 mg/dL High 70-105 [facility] Comment on above: Order Comment: Waive d Testing in the ED is performed under the ED CLIA certificate #[id number]. Result Comment: [email or web address] [email or web address] Performed By: #### L [id number] ####[facility] ([facility])[address] [place] [address] Glucose [Mass/Vol] 172 mg/dL High 70-105 [facility] Comment on above: Order Comment: Waive d Testing in the ED is performed under the ED CLIA certificate #[id number]. Result Comment: [email or web address] [email or web address] Performed By: #### L [id number] ####[facility] ([employer])[address] [place] [address] Glucose [Mass/Vol] 136 mg/dL High 70-105 [facility] Comment on above: Order Comment: Waive d Testing in the ED is performed under the ED CLIA certificate #[id number]. Result Comment: [email or web address] [email or web address] Performed By: #### L [id number] #### [facility] ([facility]) [address] [place] [address] Glucose [Mass/Vol] 81 mg/dL Normal 70-105 [facility] Comment on above: Order Comment: Waive d Testing in the ED is performed under the ED CLIA certificate #[id number]. Result Comment: [email or web address] Performed By: #### L [id number] #### [facility] ([facility]) [address] [place] [address] T4, FREEon 03-13-2025 THYROXINE (T4) FREE (NG/DL) IN SER/PLAS 1.23 ng/dL Normal 0.71-1.85 [facility] Comment on above: Performed By: #### L [id number] #### [facility] ([facility]) [address] [place] [address] TSH3 REFLEX TO FT4on 025 THYROTROPIN (MIU/L) IN SER/PLAS BY DETECTION LIMIT <= 0.05 MIU/L 6.01 mIU/L High 0.34-5.60 [facility] Comment on above: Performed By: #### L [id number] #### [facility] ([facility]) [address] [place] [address] CBC (INCLUDES DIFF/PLT)on Basophils (Bld) [#/Vol] 0.042 10*3/uL Normal 0-200 [facility] Comment on above: Performed By: #### 1 0231, 6399, 10686, 899, 7600 #### [facility] [place] [address] [employer]: Figueroa Jacques MD Basophils/100 WBC (Bld) 0.8 % Normal [facility] Comment on above: Performed By: #### 1 0231, 6399, 70189, 899, 7600 #### [facility] [place] [address] [employer]: Figueroa Jacques MD Eosinophils (Bld) [#/Vol] 0.25 10*3/uL Normal 15-500 [facility] Comment on above: Performed By: #### 1 0231, 6399, 70372, 899, 7600 #### [facility] [place] [address] [employer]: Figueroa Jacques MD Eosinophils/100 WBC (Bld) 4.8 % Normal [facility] Comment on above: Performed By: #### 1 0231, 6399, 68770, 899, 7600 #### [facility] of [place] [address] [employer]: Figueroa Jacques MD Erythrocyte distribution width (RBC) [Ratio] 14.8 % Normal 11.0-15.0 [facility] Comment on above: Performed By: #### 1 0231, 6399, 54080, 899, 7600 #### [facility] of [address], [address] [place] [address] [employer]: Figueroa Jacques MD Hematocrit (Bld) [Volume fraction] 36.8 % Normal 35.0-45.0 [facility] Comment on above: Performed By: #### 1 0231, 6399, 95026, 899, 7600 #### [facility] of [place] [address] [employer]: Figueroa Jacques MD Hemoglobin (Bld) [Mass/Vol] 11.9 g/dL Normal 11.7-15.5 [facility] Comment on above: Performed By: #### 1 0231, 6399, 60805, 899, 7600 #### [facility] of [place] [address] [employer]: Figueroa Jacques MD Lymphocytes (Bld) [#/Vol] 1.737 10*3/uL Normal 850-3900 [facility] Comment on above: Performed By: #### 1 0231, 6399, 85598, 899, 7600 #### [facility] of [place] [address] [employer]: Figueroa Jacques MD Lymphocytes/100 WBC (Bld) 33.4 % Normal [facility] Comment on above: Performed By: #### 1 0231, 6399, 53683, 899, 7600 #### [facility] of [place] [address] [employer]: Figueroa Jacques MD MCH (RBC) [Entitic mass] 28.7 pg Normal 27.0-33.0 [facility] Comment on above: Performed By: #### 1 0231, 63, 36047, 89, 7600 #### [facility] [place] [address] [employer]: Figueroa Jacques MD MCHC (RBC) [Mass/Vol] 32.3 [...] clinical condition. Performed By: #### 1 0231, 63, 60329, 89, 7600 #### [facility] [place] [address] [employer]: Figueroa Jacques MD MCV (RBC) [Entitic vol] 88.7 fL Normal 80.0-100.0 [facility] Comment on above: Performed By: #### 1 023, 6398, 80176, 89, 7600 #### [facility] [place] [address] [employer]: Figueroa Jacques MD Monocytes (Bld) [#/Vol] 0.51 10*3/uL Normal 200-950 [facility] Comment on above: Performed By: #### 1 023, 63, 14946, 89, 7600 #### [facility] of [place] [address] [employer]: Figueroa Jacques MD Monocytes/100 WBC (Bld) 9.8 % Normal [facility] Comment on above: Performed By: #### 1 0231, 63, 73202, 89, 7600 #### [facility] [place] [address] [employer]: Figueroa Jacques MD Neutrophils (Bld) [#/Vol] 2.662 10*3/uL Normal 5671-2026 [facility] Comment on above: Performed By: #### 1 0231, 6399, 62223, 899, 7600 #### [facility] of [place] [address] [employer]: Figueroa Jacques MD Neutrophils/100 WBC (Bld) 51.2 % Normal [facility] Comment on above: Performed By: #### 1 0231, 6399, 65889, 899, 7600 #### [facility] of [address], [address] [place] [address] [employer]: Figueroa Jacques MD Platelet mean volume (Bld) [Entitic vol] 10.6 fL Normal 7.5-12.5 [facility] Comment on above: Performed By: #### 1 0231, 6399, 36321, 899, 7600 #### [facility] of [place] [address] [employer]: Figueroa Jacques MD Platelets (Bld) [#/Vol] 205 10*3/uL Normal 140-400 [facility] Comment on above: Performed By: #### 1 0231, 6399, 98925, 899, 7600 #### [facility] of [place] [address] [employer]: Figueroa Jacques MD RBC (Bld) [#/Vol] 4.15 10*6/uL Normal 3.80-5.10 [facility] Comment on above: Performed By: #### 1 0231, 6399, 66604, 899, 7600 #### [facility] of [place] [address] [employer]: Figueroa Jacques MD WBC (Bld) [#/Vol] 5.2 10*3/uL Normal 3.8-10.8 [facility] Comment on above: Performed By: #### 1 0231, 6399, 64917, 899, 7600 #### [facility] of [place] [address] [employer]: Figueroa Jacques MD COMPREHENSIVE METABOLIC PANE [facility] 01-02-2025 Albumin [Mass/Vol] 3.9 g/dL Normal 3.6-5.1 [facility] Comment on above: Performed By: #### 1 0231, 6399, 92518, 899, 7600 #### [facility] of [address], [address] [place] [address] [employer]: Figueroa Jacques MD Albumin/Globulin [Mass ratio] 1.5 {ratio} Normal 1.0-2.5 [facility] Comment on above: Performed By: #### 1 0231, 6399, 03357, 899, 7600 #### [facility] of [address], [address] [place] [address] [employer]: Figueroa Jacques MD ALP [Catalytic activity/Vol] 45 U/L Normal 37-153 [facility] Comment on above: Performed By: #### 1 0231, 6399, 29879, 899, 7600 #### [facility] of [address], [address] [place] [address] Super[employer]: Figueroa Jacques MD ALT [Catalytic activity/Vol] 4 U/L Low 6-29 [facility] Comment on above: Performed By: #### 1 0231, 6399, 11950, 899, 7600 #### [facility] of [place] [address] Supervisor [employer]: Figueroa Jacques MD AST [Catalytic activity/Vol] 14 U/L Normal 10-35 [facility] Comment on above: Performed By: #### 1 0231, 6399, 91247, 899, 7600 #### [facility] of [place] [address] [employer]: Figueroa Jacques MD Bilirubin [Mass/Vol] 0.6 mg/dL Normal 0.2-1.2 [facility] Comment on above: Performed By: #### 1 0231, 6399, 60065, 899, 7600 #### [facility] of [address] [place] [address] [employer]: Figueroa Jacques MD Calcium [Mass/Vol] 9.2 mg/dL Normal 8.6-10.4 [facility] Comment on above: Performed By: #### 1 0231, 6399, 74794, 899, 7600 #### [facility] [place] [address] Super[employer]: Figueroa Jacques MD Chloride [Moles/Vol] 108 mmol/L Normal 98-110 [facility] Comment on above: Performed By: #### 1 0231, 6399, 19803, 899, 7600 #### [facility] of [place] [address] Super[employer]: Figueroa Jacques MD CO2 [Moles/Vol] 24 mmol/L Normal 20-32 [facility] Comment on above: Performed By: #### 1 0231, 63, 89124, 899, 7600 #### [facility] of [place] [address] [employer]: Figueroa Jacques MD Creatinine [Mass/Vol] 2.01 mg/dL High 0.60-1.[address] [facility] Comment on above: Performed By: #### 1 0231, 6399, 25283, 899, 7600 #### [facility] of [place] [address] [employer]: Figueroa Jacques MD GFR/1.73 sq M.predicted among non-blacks MDRD (S/P/Bld) [Vol rate/Area] 25 mL/min/{1.73_m2} Low > OR = 60 [facility] Comment on above: Performed By: #### 1 0231, 6399, 22761, 899, 7600 #### [facility] of [place] [address] [employer]: Figueroa Jacques MD Globulin (S) [Mass/Vol] 2.6 g/dL Normal 1.9-3.7 [facility] Comment on above: Performed By: #### 1 0231, 6399, 47845, 899, 7600 #### [facility] [place] [address] [employer]: Figueroa Jacques MD Glucose [Mass/Vol] 103 mg/dL High 65-99 [facility] Comment on above: Result Comment: Fasting reference interval For someone without known diabetes, a glucose value between 100 and 125 mg/dL is consistent with prediabetes and should be confirmed with a follow-up test. Performed By: #### 1 0231, 6399, 08730, 899, 7600 #### [facility] [place] [address] [employer]: Figueroa Jacques MD Potassium [Moles/Vol] 4.4 mmol/L Normal 3.5-5.[address] [facility] Comment on above: Performed By: #### 1 0231, 6399, 68467, 899, 7600 #### [facility] [place] [address] [employer]: Figueroa Jacques MD Protein [Mass/Vol] 6.5 g/dL Normal 6.1-8.1 [facility] Comment on above: Performed By: #### 1 0231, 6399, 75328, 899, 7600 #### [facility] [place] [address] [employer]: Figueroa Jacques MD Sodium [Moles/Vol] 141 mmol/L Normal 135-146 [facility] Comment on above: Performed By: #### 1 0231, 6399, 13715, 899, 7600 #### [facility] [place] [address] [employer]: Figueroa Jacques MD Urea nitrogen [Mass/Vol] 27 mg/dL High 7-25 [facility] Comment on above: Performed By: #### 1 0231, 6399, 37035, 899, 7600 #### [facility] [address] [employer]: Figueroa Jacques MD Urea nitrogen/Creatinine [Mass ratio] 13 mg/mg Normal - [facility] Comment on above: Performed By: #### 1 0231, 6399, 24851, 899, 7600 #### [facility] [address], [address] [place] [address] [employer]: Figueroa Jacques MD LIPID PANEL, [facility] [place] 12-17 Cholesterol [Mass/Vol] 138 mg/dL Normal <200 Qu est [facility] Comment on above: Order Comment: FASTI NG:YES FASTING: YES Performed By: #### 1 0231, 6399, 82357, 899, 7600 #### [facility] [address], [address] [place] [address] [employer]: Figueroa Jacques MD Cholesterol in HDL [Mass/Vol] 37 mg/dL Low > OR = 50 [facility] Comment on above: Order Comment: FASTI NG:YES FASTING: YES Performed By: #### 1 0231, 6399, 04993, 899, 7600 #### [facility] [address], [address] [place] [address] [employer]: Figueroa Jacques MD Cholesterol in LDL [Mass/Vol] [...] LDL-C. Andres SS et al. NICOLE. 2013;310(19): 8561-0246 (http://education.TidbitDotCo.Routezilla/faq/LDW817) Performed By: #### 1 0231, 6399, 23957, 899, 7600 #### [facility] [address], [address] [place] [address] [employer]: Figueroa Jacques MD Cholesterol.total/Chol esterol in HDL [Mass ratio] 3.7 {ratio} Normal <5.0 [facility] Comment on above: Order Comment: FASTI NG:YES FASTING: YES Performed By: #### 1 0231, 6399, 24393, 89, 7600 #### [facility] [place] [address] [employer]: Figueroa Jacques MD NON HDL CHOLESTEROL 101 mg/dL (calc) Normal <130 [facility] Comment on above: Order Comment: FASTI NG:YES FASTING: YES Result Comment: For patients with diabetes plus 1 major ASCVD risk factor, treating to a non-HDL-C goal of <100 mg/dL (LDL-C of <70 mg/dL) is considered a therapeutic option. Performed By: #### 1 0231, 6399, 06265, 89, 7600 #### [facility] [place] [address] [employer]: Figueroa Jacques MD Triglyceride [Mass/Vol] 153 mg/dL High <150 [facility] Comment on above: Order Comment: FASTI NG:YES FASTING: YES Performed By: #### 1 0231, 63, 56591, 89, 7600 #### [facility] [place] [address] [employer]: Figueroa Jacques MD T3, [facility] 01-02-2025 Free T3 [Mass/Vol] 2.7 pg/mL Normal 2.3-4.2 [facility] Comment on above: Performed By: #### 1 0231, 6399, 85706, 89, 7600 #### [facility] [place] [address] [employer]: Figueroa Jacques MD T4, [facility] 01-02-2025 Free T4 [Mass/Vol] 1.2 ng/dL Normal 0.8-1.8 [facility] Comment on above: Performed By: #### 1 0231, 6399, 66642, 899, 7600 #### [facility] [address] [place] [address] [employer]: Figueroa Jacques MD TSHon 01-02-2025 TSH Qn 3.82 m[IU]/L Normal 0.40-4.50 [facility] Comment on above: Performed By: #### 1 0231, 6399, 90024, 899, 7600 #### [facility] [address], [address] [place] [address] [employer]: Figueroa Jacques MD Laboratory - Hematology and Cell countson 12-12-2024 HbA1c (Bld) [Mass fraction] 5 % [facility] No Panel Informationon 12-12 [facility] Ambulatory Visit Summaryon 0 11-18-2024 Ambulatory Visit Summary Ambulatory Visit Summary MARLENI DENNIS :1950 Visit Date:11/18/2024 Ambulatory Visit Instructions Your [...] mg Tab) nitroglycerin (nitroglycerin 0.4 mg SubL [place]) pantoprazole (Pantoprazole [address] Tab) pregabalin [...] Alfredo CARDENAS MD Where: [facility] [address] [place] [address]- You Need to Schedule the Following Appointments Follow Up with Alfredo CARDENAS MD, URL When: Where: [facility] [address], [place] [address]- [phone] Medications What How Much When Instructions New mirabegron (mirabegron 50 mg oral tablet, extended release) 1 Tablets By Mouth Every day Refills: 11 Pickup at [facility]/pharmacy #[id number] Unchanged apixaban (Eliquis 2.5 mg oral tablet) [...] concerns Unchanged nitroglycerin (nitroglycerin 0.4 mg SubL [place]) Sublingual Every 5 minutes Contact prescribing physician [...] physician if questions or concerns Pharmacy Information [facility]/pharmacy #[id number]: [address], [place] [phone] What How Much When Comments Stop Taking oxybutynin (oxybutynin 10 mg ER Tab) 1 Tablets By Mouth Every day Allergies iodine (Rash) shellfish (Unknown) statins (Unknown) Problems Ongoing - Any problem that you are currently receiving treatment for. 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 Kidney lesion Osteoporosis Urge incontinence Historical - Any problem that you are no longer receiving treatment for. Heart disease Hyperlipidem (more content not included)... [facility] Reminderson 11-18-2024 Reminders Reminders From: Pati Akins To: EU - Recalls Cardenas; Sent: 11/18/2024 14:29:07 EST Show up: 09/18/2025 14:28:00 EST Subject: MRI of ABD Due Date/Time: 10/13/2025 14:28:00 EST Reminder/Recall Patient is due for ABD MRI w contrast prior to November 2025 appt/ attn kidneys Pt uses [facility] Office/Clinic Noteon 11-18-2024 Urology Office/Clinic Note [...] qd. Possible SEs discussed. Rx sent to [facility] Neva. -Cont double void maneuvers 3. 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 (Z79.01: intermediate (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) On Eliquis. Elevated risk for periop complications in the future. Follow-up With When Contact Information RONALD BEAULIEU, Alfredo Moya, URL [facility] [address], [place] [address] [phone] Additional Instructions: 1 yr w/ MRI Patient Education Suzan Gutierrez I, Mayte Vogt, personally scribed for Dr. Cardenas [...] Tonsillectomy. Medication (more content not included)... Normal [facility] Comment on above: Result Comment: Elec tronically Signed By: Alfredo CARDENAS MD\.br\Date and Time Signed: 11/18/24 14:26 EST\.br\Electronically Co-Signed By: Mayte Vogt\.br\Date and Time Co-Signed: 11/18/24 14:24 EST Reminderson 09-23-2024 Reminders Reminders From: MGIUEL Thomson APRN, [place] X To: DARREL Cardenas; Sent: 03/19/2024 15:06:49 EDT Show up: 08/18/2024 15:06:00 EST Subject: Reminder Message Reminder Message MRI abdomen with and without IV contrast for kidney lesion surveillance. Follow-up appointment scheduled September Order for MRI and accompanying paperwork faxed to [facility] Central scheduling today. They will call pt to schedule. Pt is scheduled today at 2pm for MRI and creatinine draw. Will monitor Results in chart for review Results in chart for review Normal [facility] CREATININEon 09-13-2024 Creatinine [Mass/Vol] 1.56 mg/dL High 0.55 - 1.02 mg/dL [facility] GFR/1.73 sq M.predicted CKD-EPI (S/P/Bld) [Vol rate/Area] 39 Low >=60 mL/min/1.7 3m 2 [facility] Interpretation and review of laboratory results Abnormal [facility] EGFR-NON AF ANDORRAN 32 Low >=60 mL/min/1.7 3m 2 [facility] CLINISYNC [facility] 36on 05-21-2024 36 Regarding echo resul t from 05/10/2024: Sachin Moukarbel, MD Kari Wale, MA Echo was ok, follow up in 1 year. Patient informed. Normal [facility] Office Visiton 04-24-2024 Follow-up visit [id number] Lauren Dennis 1950 F Date Provider Department Center 04/24/2024 [place] [facility]aux Family History Problem Relation Age of Onset Coronary artery disease Mother Stroke Mother Coronary artery disease Father Ovarian cancer Sister Family Status - Relation Status Age at Mother Father Sister Level of Service:81290 [place] OFFICE/OUTPATIENT ESTABLISHED MOD MDM 30 MIN Normal [facility] Urology Office/Clinic Noteon 03-19-2024 Urology Office/Clinic [...] with voice recognition artificial intelligence software, specifically [employer], [employer] and or Talknote. Substitutions may have occurred due to the [...] 0 -Continue oxybutynin, call for refills Ordered: 01401 Measure Post Void residual urine and/or bladder [...] months for continued monitoring 3. 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 (Z79.01: intermediate (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) On Eliquis Follow-up With When Contact Information RONALD BEAULIEU, Alfredo Moya, URL [facility] [address], [place] [address]- [phone] Additional Instructions: 6 mos w/ MRI Patient [...] tablet, extended release nitroglycerin 0.4 mg SubL [place], SubLingual, q5min oxybutynin 10 mg ER Tab, [...] virus vaccine, inactivated 07/04/2022 Recorded SARS-CoV-2 (COVID-19) [id number] 07/04/2022 Recorded influenza virus vaccine, inactivated 06/24/2021 Recorded SARS-CoV-2 (COVID-19) mRNA BNT-162b2 vax 06/24/2021 Recorded 2022-09-26: TPV70 SARS-CoV-2 (COVID-19) mRNA BNT-162b2 vax 11/17/2020 Recorded 2022-09-26: TPV70 SARS-CoV-2 (COVID-19) mRNA BNT-162b2 vax 10/27/2020 Recorded 2022-09-26: TPV70 influenza virus vaccine, inactivated 07/08/2020 Recorded [1] URO- review MRI, start Oxybutynin; RONALD BEAULIEU (more content not included)... Normal [facility] Comment on above: Result Comment: Elec tronically Signed By: MIGUEL Thomson APRN, Maria Luisa Pritchard\.br\Date and Time Signed: 03/19/24 15:09 EDT CBC AUTO DIFFon 01-18-2023 BASO # 0.1 103/ul Normal 0.0-0.1 [facility] Comment on above: Performed By: #### C BC #### [facility] [address] [place] [address] [address] Aryan Petty Basophils/100 WBC (Bld) 1.4 % Normal 0.2-2.0 [facility] Comment on above: Performed By: #### C BC #### [facility] [address] [place] [address] Dr. Aryan Petty EO # 0.6 103/ul Normal 0.0-0.7 [facility] Comment on above: Performed By: #### C BC #### [facility] [address] [place] [address] Dr. Aryan Petty Eosinophils/100 WBC (Bld) 7.7 % Critically high 0.9-7.0 [facility] Comment on above: Performed By: #### C BC #### [facility] [address] [place] [address] Dr. Aryan Petty Erythrocyte distribution width (RBC) [Ratio] 16.4 % Critically high 11.0-15.0 [facility] Comment on above: Performed By: #### C BC #### [facility] [address] [place] [address] Dr. Aryan Petty Hematocrit (Bld) [Volume fraction] 40.6 % Normal 36.0-48.0 [facility] Comment on above: Performed By: #### C BC #### [facility] [address] [place] [address] Dr. Aryan Petty Hemoglobin (Bld) [Mass/Vol] 12.9 g/dL Normal 12.0-16.0 [facility] Comment on above: Performed By: #### C BC #### [facility] [address] [place] [address] Dr. Aryan Petty IG # 0.03 10e3/ul Normal 0.00-0.03 [facility] Comment on above: Performed By: #### C BC #### [facility] [address] [place] [address] Dr. Aryan Petty IG % 0.4 % Normal 0.0-0.5 [facility] Comment on above: Performed By: #### C BC #### [facility] [address] [place] [address] Dr. Aryan Petty LYMPH # 2.6 103/ul Normal 1.2-3.8 [facility] Comment on above: Performed By: #### C BC #### [facility] [address] [place] [address] Dr. Aryan Petty Lymphocytes/100 WBC (Bld) 35.5 % Normal 20.5-60.0 [facility] Comment on above: Performed By: #### C BC #### [facility] [address] [place] [address] Dr. Aryan Petty MANUAL DIFF REQ NO Normal [facility] [place] [facility] Comment on above: Performed By: #### C BC #### [facility] [address] [place] [address] Dr. Aryan Petty MCH (RBC) [Entitic mass] 26.5 pg Critically low 26.7-34.0 [facility] Comment on above: Performed By: #### C BC #### [facility] [address] [place] [address] Dr. Aryan Petty MCHC (RBC) [Mass/Vol] 31.8 g/dL Normal 29.9-35.2 [facility] Comment on above: Performed By: #### C BC #### [facility] [address] [place] [address] Dr. Aryan Petty MCV (RBC) [Entitic vol] 83.5 fL Normal 81.0-99.0 [facility] Comment on above: Performed By: #### C BC #### [facility] [address] [place] [address] Dr. Aryan Petty MONO # 0.7 103/ul Normal 0.3-0.8 [facility] Comment on above: Performed By: #### C BC #### [facility] [address] [place] [address] Dr. Aryan Petty Monocytes/100 WBC (Bld) 9.9 % Normal 1.7-12.0 [facility] Comment on above: Performed By: #### C BC #### [facility] [address] [place] [address] Dr. Aryan Petty NEUT # 3.3 103/ul Normal 1.4-6.5 [facility] Comment on above: Performed By: #### C BC #### [facility] [address] [place] [address] Dr. Aryan Petty Neutrophils/100 WBC (Bld) 45.1 % Normal 43.0-75.0 [facility] Comment on above: Performed By: #### C BC #### [facility] [address] [place] [address] Dr. Aryan Petty Platelet mean volume (Bld) [Entitic vol] 11.0 fL Normal 9.5-13.5 [facility] Comment on above: Performed By: #### C BC #### [facility] [address] [place] [address] Dr. Aryan Petty PLT 270 103/ul Normal 150-450 [facility] Comment on above: Performed By: #### C BC #### [facility] [address] [place] [address] Dr. Aryan Petty RBC 4.86 106/ul Normal 4.20-5.40 [facility] Comment on above: Performed By: #### C BC #### [facility] [address] [place] [address] Dr. Aryan Petty WBC 7.4 103/ul Normal 4.0-11.0 [facility] Comment on above: Performed By: #### C BC #### [facility] [address] [place] [address] Dr. Aryan Petty LIPID PROFILEon 01-18-2023 CHOL-HDL RATIO NORM SEE BELOW Normal [facility] Comment on above: Result Comment: 3.3 - 4.4 LOW RISK 4.4 - 7.1 AVERAGE RISK 7.1 - 11.0 MODERATE RISK >11.0 HIGH RISK Performed By: #### C MP, LIPID #### [facility] [address] [place] [address] Dr. Aryan Petty Cholesterol [Mass/Vol] 189 mg/dL Normal <=200 [facility] Comment on above: Performed By: #### C MP, LIPID #### [facility] [address] [place] [address] Dr. Aryan Petty Cholesterol in HDL [Mass/Vol] 30 mg/dL Critically low 40-60 [facility] Comment on above: Performed By: #### C MP, LIPID #### [facility] [address] [address] [address] Aryan Petty Cholesterol in LDL [Mass/Vol] 101.6 mg/dL Normal [facility] Comment on above: Performed By: #### C MP, LIPID #### [facility] [address] [address] [address] Aryan Petty Cholesterol.total/Chol esterol in HDL [Mass ratio] 6.3 {ratio} Normal [facility] Comment on above: Performed By: #### C MP, LIPID #### [facility] [address] [address] [address] Aryan Petty HDL NORMAL > or = 60 mg/dl - LO W CARDIOVASCULAR RISK <40 mg/dl - HIGH CARDIOVASCULAR RISK Normal [facility] Comment on above: Performed By: #### C MP, LIPID #### [facility] [address] [place] [address] Dr. Aryan Petty LDL CALC NORMAL SEE BELOW Normal [facility] Comment on above: Result Comment: <100 mg/dl OPTIMAL 100 - 129 mg/dl NEAR OR ABOVE OPTIMAL 130 - 159 mg/dl BORDERLINE HIGH 160 - 189 mg/dl HIGH >190 mg/dl VERY HIGH Performed By: #### C MP, LIPID #### [facility] [address] [place] [address] Dr. Aryan Petty Triglyceride [Mass/Vol] 287 mg/dL Critically high <=150 [facility] Comment on above: Performed By: #### C MP, LIPID #### [facility] [address] [place] [address] Dr. Aryan Petty VLDL CALC 57.4 mg/dL Normal [facility] Comment on above: Performed By: #### C MP, LIPID #### [facility] [address] [address] [address] Aryan Petty PROF 14(COMP METB)on 023 Albumin [Mass/Vol] 3.6 g/dL Normal 3.4-5.0 [facility] Comment on above: Performed By: #### C MP, LIPID #### [facility] [address] [place] [address] Dr. Aryan Petty Albumin/Globulin [Mass ratio] 0.8 {ratio} Normal [facility] Comment on above: Performed By: #### C MP, LIPID #### [facility] [address] [place] [address] Dr. Aryan Petty ALP [Catalytic activity/Vol] 86 U/L Normal 46-116 [facility] Comment on above: Performed By: #### C MP, LIPID #### [facility] [address] [place] [address] Dr. Aryan Petty ALT [Catalytic activity/Vol] 21 U/L Normal 14-59 [facility] Comment on above: Performed By: #### C MP, LIPID #### [facility] [address] [place] [address] Dr. Aryan Petty Anion gap [Moles/Vol] 13.1 mmol/L Normal [facility] Comment on above: Performed By: #### C MP, LIPID #### [facility] [address] [place] [address] Dr. Aryan Petty AST [Catalytic activity/Vol] 27 U/L Normal 15-37 [facility] Comment on above: Performed By: #### C MP, LIPID #### [facility] [address] [place] [address] Dr. Aryan Petty Bilirubin [Mass/Vol] 0.4 mg/dL Normal 0.2-1.0 [facility] Comment on above: Performed By: #### C MP, LIPID #### [facility] [address] [place] [address] Dr. Aryan Petty Calcium [Mass/Vol] 9.4 mg/dL Normal 8.5-10.1 [facility] Comment on above: Performed By: #### C MP, LIPID #### [facility] [address] [place] [address] Dr. Aryan Petty Chloride [Moles/Vol] 103 mmol/L Normal 98-107 [facility] Comment on above: Performed By: #### C MP, LIPID #### [facility] [address] [place] [address] Dr. Aryan Petty CO2 [Moles/Vol] 27.6 mmol/L Normal 21.0-32.0 [facility] Comment on above: Performed By: #### C MP, LIPID #### [facility] [address] [place] [address] Dr. Aryan Petty Creatinine [Mass/Vol] 2.21 mg/dL Critically high 0.55-1.02 [facility] Comment on above: Performed By: #### C MP, LIPID #### [facility] [address] [place] [address] Dr. Aryan Petty EGFR-AF ANDORRAN 26 mL/min/1.73m2 Critically low >=60 [facility] Comment on above: Performed By: #### C MP, LIPID #### [facility] [address] [place] [address] Dr. Aryan Petty EGFR-NON AF ANDORRAN 22 mL/min/1.73m2 Critically low >=60 [facility] Comment on above: Performed By: #### C MP, LIPID #### [facility] [address] [place] [address] Dr. Aryan Petty Globulin (S) [Mass/Vol] 4.6 g/dL Normal [facility] Comment on above: Performed By: #### C MP, LIPID #### [facility] [address] [place] [address] Dr. Aryan Petty Glucose [Mass/Vol] 120 mg/dL Critically high 74-106 T [facility] Comment on above: Performed By: #### C MP, LIPID #### [facility] [address] [place] [address] Dr. Aryan Petty Potassium [Moles/Vol] 4.0 mmol/L Normal 3.5-5.1 [facility] Comment on above: Performed By: #### C MP, LIPID #### [facility] [address] [place] [address] Dr. Aryan Petty Protein [Mass/Vol] 8.2 g/dL Normal 6.4-8.2 [facility] Comment on above: Performed By: #### C MP, LIPID #### [facility] [address] [place] [address] Dr. Aryan Petty Sodium [Moles/Vol] 140 mmol/L Normal 136-145 [facility] Comment on above: Performed By: #### C MP, LIPID #### [facility] [address] [address] [address] Aryan Petty Urea nitrogen [Mass/Vol] 29.0 mg/dL Critically high 7.0-18.0 [facility] Comment on above: Performed By: #### C MP, LIPID #### [facility] [address] [address] [address] Aryan Petty Urea nitrogen/Creatinine [Mass ratio] 13.1 mg/mg Normal [facility] Comment on above: Performed By: #### C MP, LIPID #### [facility] [address] [address] [address] Aryan Petty US CAROTID ART BILon [...] by: TONYA GARCIA Date: 2023-01-10 15:26 Normal [facility] XR DEXA BONE DENSITYon 09-07 XR [...] by: TONYA GARCIA Date: 2022-09-07 16:41 Normal [facility] MRI ABDOMEN WO W CONon 09-01 [...] by: RYLAN HOPKINS Date: 2022-09-01 12:43 Normal [facility] CREATININEon 08-29-2022 Creatinine [Mass/Vol] 2.23 mg/dL Critically high 0.55-1.02 [facility] Comment on above: Performed By: #### C JUDAH ####[facility] [address] [place], [place] [address] Petty EGFR-AF ANDORRAN 26 mL/min/1.73m2 Critically low >=60 [facility] Comment on above: Performed By: #### C JUDAH ####[facility] [address] [place], [place] [address] Pet[employer] EGFR-NON AF ANDORRAN 22 mL/min/1.73m2 Critically low >=60 [facility] Comment on above: Performed By: #### C JUDAH ####[facility] [address] [place], [place] [address]Aw. Aryan Petty ECHOCARDIO M/2D COMPLETEon 0 03-16-2022 ECHOCARDIO M/2D COMPLETE Patient: MARLENI DENNIS Exam Date: 03/16/2022 : 1950 Gender:F Ordering : JOHN LUTHER Admission #: [id number] Family : DR JACK VOGT M.D. Order #: [id number] CLICK HERE TO VIEW EXAM ECHOCARDIOGRAM REPORT [...] Aguilera M.D. on 03/16/2022 at 16:36 Normal [facility] BNPon 02-22-2022 Natriuretic peptide B (Bld) [Mass/Vol] 553.0 pg/mL Normal <=900.0 [facility] Comment on above: Performed By: #### B MOTOR POOL CLERK, BMP ####[facility] [address] [address]Dr. Aryan Petty PROF CHEM 8 (BAS METB)on Anion gap [Moles/Vol] 14.9 mmol/L Normal [facility] Comment on above: Performed By: #### B MOTOR POOL CLERK, BMP ####[facility] [address] [place], [place] [address]Dr. Aryan Petty Calcium [Mass/Vol] 9.1 mg/dL Normal 8.5-10.1 [facility] Comment on above: Performed By: #### B MOTOR POOL CLERK, BMP ####[facility] [address] [place], [place] [address]Dr. Aryan Petty Chloride [Moles/Vol] 102 mmol/L Normal 98-107 [facility] Comment on above: Performed By: #### B MOTOR POOL CLERK, BMP ####[facility] [address] [place], [place] [address]Dr. Aryan Petty CO2 [Moles/Vol] 27.7 mmol/L Normal 21.0-32.0 [facility] Comment on above: Performed By: #### B MOTOR POOL CLERK, BMP ####[facility] [address] [place], [place] [address]Dr. Aryan Petty Creatinine [Mass/Vol] 1.80 mg/dL Critically high 0.55-1.02 [facility] Comment on above: Performed By: #### B MOTOR POOL CLERK, BMP ####[facility] [address] [place], [place] [address]Dr. Aryan Petty EGFR-AF ANDORRAN 34 mL/min/1.73m2 Critically low >=60 [facility] Comment on above: Performed By: #### B MOTOR POOL CLERK, BMP ####[facility] [address] [place] [phone]. Aryan Petty EGFR-NON AF ANDORRAN 28 mL/min/1.73m2 Critically low >=60 [facility] Comment on above: Performed By: #### B MOTOR POOL CLERK, BMP ####[facility] [address] [place] [phone]. Aryan Petty Glucose [Mass/Vol] 107 mg/dL Critically high 74-106 [facility] Comment on above: Performed By: #### B MOTOR POOL CLERK, BMP ####[facility] [address] [place] [phone]. Aryan Petty Potassium [Moles/Vol] 3.6 mmol/L Normal 3.5-5.1 [facility] Comment on above: Performed By: #### B MOTOR POOL CLERK, BMP ####[facility] [address] [place] [address]Dr. Aryan Petty Sodium [Moles/Vol] 141 mmol/L Normal 136-145 [facility] Comment on above: Performed By: #### B MOTOR POOL CLERK, BMP ####[facility] [address] [place] [phone]. Aryan Petty Urea nitrogen [Mass/Vol] 33.0 mg/dL Critically high 7.0-18.0 [facility] Comment on above: Performed By: #### B MOTOR POOL CLERK, BMP ####[facility] [address] [place] [address]Dr. Aryan Petty Urea nitrogen/Creatinine [Mass ratio] 18.3 mg/mg Normal [facility] Comment on above: Performed By: #### B MOTOR POOL CLERK, BMP ####[facility] [address]so[address] [place] [phone]. Aryan Petty US KIDNEYSon 02-22-2022 US KIDNEYS EXAMINATION: US ELIZA MORALESS HISTORY: Kidney lesion COMPARISON: 03/24/2021 TECHNIQUE: Ultrasound [...] by: HENRY WALL Date: 2022-02-22 17:17 Normal [facility] VC VENOUS REFLUX TEJ LMTon 0 02-16-2022 VC VENOUS REFLUX TEJ LMT Patient: MARLENI DENNIS Exam Date: 02/16/2022 : 1950 Gender:F Ordering : JOHN LUTHER Admission #: [id number] Family : Order #: [id number] CLICK HERE TO VIEW EXAM RADIOLOGY REPORT [...] proximal SSV. Flow: Mild deep venous reflux. Production Engineer: Dist/med calf 3.3 mm with 0.3s [...] Normal. Flow: Mild deep venous reflux noted. Production Engineer: Mid/medial calf 3.1mm, 2.9s. Dist/med calf [...] Wall MD on 02/16/2022 at 11:49 Normal [facility] US CAROTID ART BILon 05-20-2 022 [...] TONYA GARCIA Date: 2022-02-04 17:45 Normal [facility] US WALTER DOP LEG BILon 022 [...] by: JERRICA HOLDEN Date: 2022-02-04 16:34 Normal [facility] BNPon 01-31-2022 Natriuretic peptide B (Bld) [Mass/Vol] 620.0 pg/mL Normal <=900.0 [facility] Comment on above: Performed By: #### B MOTOR POOL CLERK, BMP, LIPID ####[facility] [address] [place] [phone]. Aryan Petty LIPID PROFILEon 01-31-2022 CHOL-HDL RATIO NORM SEE BELOW Normal [facility] Comment on above: Result Comment: 3.3 - 4.4 LOW RISK 4.4 - 7.1 AVERAGE RISK 7.1 - 11.0 MODERATE RISK >11.0 HIGH RISK Performed By: #### B MOTOR POOL CLERK, BMP, LIPID ####[facility] [address] [place] [phone]. Aryan Petty Cholesterol [Mass/Vol] 148 mg/dL Normal <=200 [facility] Comment on above: Performed By: #### B MOTOR POOL CLERK, BMP, LIPID ####[facility] [address]mok[address] [place] [phone]. Aryan Petty Cholesterol in HDL [Mass/Vol] 25 mg/dL Critically low 40-60 [facility] Comment on above: Performed By: #### B MOTOR POOL CLERK, BMP, LIPID ####[facility] [address] [place] [phone]. Aryan Petty Cholesterol in LDL [Mass/Vol] 80.8 mg/dL Normal [facility] Comment on above: Performed By: #### B MOTOR POOL CLERK, BMP, LIPID ####[facility] [address]ew[address]qyop[address] [place] [phone]. Suzannetanisha Jovanny Cholesterol.total/Chol esterol in HDL [Mass ratio] 5.9 {ratio} Normal [facility] Comment on above: Performed By: #### B MOTOR POOL CLERK, BMP, LIPID ####[facility] [address]fub[address] [place] [phone]. Suzannetanisha Petty HDL NORMAL > or = 60 mg/dl - LO W CARDIOVASCULAR RISK <40 mg/dl - HIGH CARDIOVASCULAR RISK Normal [facility] Comment on above: Performed By: #### B MOTOR POOL CLERK, BMP, LIPID ####[facility] In[address] [place] [phone]. Aryan Petty LDL CALC NORMAL SEE BELOW Normal [facility] Comment on above: Result Comment: <100 mg/dl OPTIMAL 100 - 129 mg/dl NEAR OR ABOVE OPTIMAL 130 - 159 mg/dl BORDERLINE HIGH 160 - 189 mg/dl HIGH >190 mg/dl VERY HIGH Performed By: #### B MOTOR POOL CLERK, BMP, LIPID ####[facility] [address]xc[address] [place] [phone]. Aryan Petty Triglyceride [Mass/Vol] 211 mg/dL Critically high <=150 [facility] Comment on above: Performed By: #### B MOTOR POOL CLERK, BMP, LIPID ####[facility] [address]xqvxsv[address] [place] [address]Dr. Aryan Petty VLDL CALC 42.2 mg/dL Normal [facility] Comment on above: Performed By: #### B MOTOR POOL CLERK, BMP, LIPID ####[facility] [address] [place] [address]Dr. Aryan Petty PROF CHEM 8 (BAS METB)on Anion gap [Moles/Vol] 14.7 mmol/L Normal [facility] Comment on above: Performed By: #### B MOTOR POOL CLERK, BMP, LIPID ####[facility] [address]rtbvh[address] [place] [address]Dr. Aryan Petty Calcium [Mass/Vol] 8.7 mg/dL Normal 8.5-10.1 [facility] Comment on above: Performed By: #### B MOTOR POOL CLERK, BMP, LIPID ####[facility] [address]zd[address] [place] [phone]. Aryan Petty Chloride [Moles/Vol] 104 mmol/L Normal 98-107 [facility] Comment on above: Performed By: #### B MOTOR POOL CLERK, BMP, LIPID ####[facility] [address]iazjya[address] [place] [address]Dr. Aryan Petty CO2 [Moles/Vol] 26.0 mmol/L Normal 21.0-32.0 [facility] Comment on above: Performed By: #### B MOTOR POOL CLERK, BMP, LIPID ####[facility] [address]kps[address]znc[address] [place] [address]Dr. Aryan Petty Creatinine [Mass/Vol] 2.91 mg/dL Critically high 0.55-1.02 [facility] Comment on above: Performed By: #### B MOTOR POOL CLERK, BMP, LIPID ####[facility] [address] [place] [address]Dr. Aryan Petty EGFR-AF ANDORRAN 19 mL/min/1.73m2 Critically low >=60 [facility] Comment on above: Performed By: #### B MOTOR POOL CLERK, BMP, LIPID ####[facility] [address]nc[address]jjig[address] [place] [address]Dr. Aryan Petty EGFR-NON AF ANDORRAN 16 mL/min/1.73m2 Critically low >=60 [facility] Comment on above: Performed By: #### B MOTOR POOL CLERK, BMP, LIPID ####[facility] [address] [place], [place] [address]Dr. Aryan Petty Glucose [Mass/Vol] 110 mg/dL Critically high 74-106 [facility] Comment on above: Performed By: #### B MOTOR POOL CLERK, BMP, LIPID ####[facility] [address] [place], [place] [address]Dr. Aryan Petty Potassium [Moles/Vol] 3.7 mmol/L Normal 3.5-5.1 [facility] Comment on above: Performed By: #### B MOTOR POOL CLERK, BMP, LIPID ####[facility] [address] [place], [place] [address]Dr. Aryan Petty Sodium [Moles/Vol] 141 mmol/L Normal 136-145 [facility] Comment on above: Performed By: #### B MOTOR POOL CLERK, BMP, LIPID ####[facility] [address] [place], [place] [address]Dr. Aryan Petty Urea nitrogen [Mass/Vol] 51.0 mg/dL Critically high 7.0-18.0 [facility] Comment on above: Performed By: #### B MOTOR POOL CLERK, BMP, LIPID ####[facility] [address] [place], [place] [address]Dr. Aryan Petty Urea nitrogen/Creatinine [Mass ratio] 17.5 mg/mg Normal [facility] Comment on above: Performed By: #### B MOTOR POOL CLERK, BMP, LIPID ####[facility] [address] [place], [place] [address]Eu[employer]et Petty Basic Metabolic Panel Reflex Mgon 06-07-2018 Anion gap 3 molar conc 10 mmol/L Normal 7-13 [facility] Calcium mass conc 8.2 mg/dL Low 8.6-10.2 [facility] Chloride molar conc 109 mmol/L Critically high 98-107 [facility] CO2 molar conc 25 mmol/L Normal 22-29 [facility] Creatinine mass conc 1.21 mg/dL Critically high 0.50-0.90 [facility] GFR/1.73 sq M predicted among blacks MDRD vol rate/area (S/P/Bld) 53.4 mL/min/{1.73_m2} Low >60 [facility] Comment on above: Result Comment: >60 mL/min/1.73m2 EGFR, calc. for ages 18 and older using theMDRD formula (not corrected for weight), is valid for stablerenal function. GFR/1.73 sq M.predicted MDRD vol rate/area 44.2 mL/min/{1.73_m2} Low >60 [facility] Comment on above: Result Comment: >60 mL/min/1.73m2 EGFR, calc. for ages 18 and older using theMDRD formula (not corrected for weight), is valid for stablerenal function. Glucose mass conc 111 mg/dL Critically high 74-109 [facility] Potassium reflex Mg 3.6 mEq/L Normal 3.5-5.1 [facility] Sodium molar conc 144 mmol/L Normal 132-144 [facility] Urea nitrogen mass conc 26 mg/dL Critically high 8-23 [facility] CBC With Platelet and Differ entialon 06-07-2018 Basophils Auto #/vol (Bld) 0.1 10*3/uL Normal 0.0-0.2 [facility] Basophils/100 WBC Auto (Bld) 0.7 % Normal [facility] Eosinophils Auto #/vol (Bld) 0.3 10*3/uL Normal 0.0-0.7 [facility] Eosinophils/100 WBC Auto (Bld) 3.1 % Normal [facility] Erythrocyte distribution width Auto Ratio (RBC) 13.4 % Normal 11.5-14.5 [facility] Hematocrit Auto Volume Fraction (Bld) 34.6 % Low 37.0-47.0 [facility] Hemoglobin mass conc (Bld) 12.0 g/dL Normal 12.0-16.0 [facility] Lymphocytes Auto #/vol (Bld) 2.3 10*3/uL Normal 1.0-4.8 [facility] Lymphocytes/100 WBC Auto (Bld) 24.2 % Normal [facility] MCH Auto Entitic mass (RBC) 33.0 pg Critically high 27.0-31.3 [facility] MCHC Auto mass conc (RBC) 34.6 % Normal 33.0-37.0 [facility] MCV Auto Entitic volume (RBC) 95.4 fL Normal 82.0-100.0 [facility] Monocytes Auto #/vol (Bld) 0.9 10*3/uL Critically high 0.2-0.8 [facility] Monocytes/100 WBC Auto (Bld) 9.8 % Normal [facility] Neutrophils Auto #/vol (Bld) 5.9 10*3/uL Normal 1.4-6.5 [facility] Neutrophils/100 WBC Auto (Bld) 62.2 % Normal [facility] Platelets Auto #/vol (Bld) 139 10*3/uL Normal 130-400 [facility] RBC Auto #/vol (Bld) 3.62 10*6/uL Low 4.20-5.40 [facility] WBC Auto #/vol (Bld) 9.5 10*3/uL Normal 4.8-10.8 [facility] Basic Metabolic Panelon 09- Anion gap 3 molar conc 11 mmol/L Normal 7-13 [facility] Calcium mass conc 8.3 mg/dL Low 8.6-10.2 [facility] Chloride molar conc 104 mmol/L Normal 98-107 [facility] CO2 molar conc 26 mmol/L Normal 22-29 [facility] Creatinine mass conc 1.90 mg/dL Critically high 0.50-0.90 [facility] GFR/1.73 sq M predicted among blacks MDRD vol rate/area (S/P/Bld) 31.8 mL/min/{1.73_m2} Low >60 [facility] Comment on above: Result Comment: >60 mL/min/1.73m2 EGFR, calc. for ages 18 and older using theMDRD formula (not corrected for weight), is valid for stablerenal function. GFR/1.73 sq M.predicted MDRD vol rate/area 26.2 mL/min/{1.73_m2} Low >60 [facility] Comment on above: Result Comment: >60 mL/min/1.73m2 EGFR, calc. for ages 18 and older using theMDRD formula (not corrected for weight), is valid for stablerenal function. Glucose mass conc 149 mg/dL Critically high 74-109 [facility] Potassium molar conc 4.1 mmol/L Normal 3.5-5.1 [facility] Sodium molar conc 141 mmol/L Normal 132-144 [facility] Urea nitrogen mass conc 25 mg/dL Critically high 8-23 [facility] CBC With Platelet and Differ entialon 06-06-2018 Basophils Auto #/vol (Bld) 0.0 10*3/uL Normal 0.0-0.2 [facility] Basophils/100 WBC Auto (Bld) 0.1 % Normal [facility] Eosinophils Auto #/vol (Bld) 0.0 10*3/uL Normal 0.0-0.7 [facility] Eosinophils/100 WBC Auto (Bld) 0.0 % Normal [facility] Erythrocyte distribution width Auto Ratio (RBC) 13.5 % Normal 11.5-14.5 [facility] Hematocrit Auto Volume Fraction (Bld) 35.0 % Low 37.0-47.0 [facility] Hemoglobin mass conc (Bld) 12.0 g/dL Normal 12.0-16.0 [facility] Lymphocytes Auto #/vol (Bld) 1.0 10*3/uL Normal 1.0-4.8 [facility] Lymphocytes/100 WBC Auto (Bld) 8.2 % Normal [facility] MCH Auto Entitic mass (RBC) 32.8 pg Critically high 27.0-31.3 [facility] MCHC Auto mass conc (RBC) 34.4 % Normal 33.0-37.0 [facility] MCV Auto Entitic volume (RBC) 95.3 fL Normal 82.0-100.0 [facility] Monocytes Auto #/vol (Bld) 1.0 10*3/uL Critically high 0.2-0.8 [facility] Monocytes/100 WBC Auto (Bld) 8.0 % Normal [facility] Neutrophils Auto #/vol (Bld) 10.1 10*3/uL Critically high 1.4-6.5 [facility] Neutrophils/100 WBC Auto (Bld) 83.7 % Normal [facility] Platelets Auto #/vol (Bld) 146 10*3/uL Normal 130-400 [facility] RBC Auto #/vol (Bld) 3.67 10*6/uL Low 4.20-5.40 [facility] WBC Auto #/vol (Bld) 12.1 10*3/uL Critically high 4.8-10.8 [facility] XR CHEST (2 VW)on 06-06-2018 XR CHEST [...] ATELECTASIS/SCARRING/PNEUM ONITIS. Interpreted by:ANDRA Dominguezigned by:Joss Casas MD06/06/18inal result Normal [facility] Basic Metabolic Panel Reflex Mgon 06-05-2018 Anion gap 3 molar conc 11 mmol/L Normal 7-13 [facility] Calcium mass conc 8.9 mg/dL Normal 8.6-10.2 [facility] Chloride molar conc 105 mmol/L Normal 98-107 [facility] CO2 molar conc 25 mmol/L Normal 22-29 [facility] Creatinine mass conc 0.86 mg/dL Normal 0.50-0.90 [facility] GFR/1.73 sq M predicted among blacks MDRD vol rate/area (S/P/Bld) mL/min/{1.73_m2} Normal >60 [facility] Comment on above: Result Comment: >60 mL/min/1.73m2 EGFR, calc. for ages 18 and older using theMDRD formula (not corrected for weight), is valid for stablerenal function. GFR/1.73 sq M.predicted MDRD vol rate/area mL/min/{1.73_m2} Normal >60 [facility] Comment on above: Result Comment: >60 mL/min/1.73m2 EGFR, calc. for ages 18 and older using theMDRD formula (not corrected for weight), is valid for stablerenal function. Glucose mass conc 135 mg/dL Critically high 74-109 [facility] Potassium reflex Mg 4.0 mEq/L Normal 3.5-5.1 [facility] Sodium molar conc 141 mmol/L Normal 132-144 [facility] Urea nitrogen mass conc 13 mg/dL Normal 8-23 [facility] CBC With Platelet and Differ entialon 06-05-2018 RBC morphology finding Nom (Bld) Normal Normal [facility] Platelet Slide Review Normal Normal [facility] Basophils Auto #/vol (Bld) 0.1 10*3/uL Normal 0.0-0.2 [facility] Basophils/100 WBC Auto (Bld) 1.0 % Normal [facility] Eosinophils Auto #/vol (Bld) 0.0 10*3/uL Normal 0.0-0.7 [facility] Eosinophils/100 WBC Auto (Bld) 0.4 % Normal [facility] Erythrocyte distribution width Auto Ratio (RBC) 13.5 % Normal 11.5-14.5 [facility] Hematocrit Auto Volume Fraction (Bld) 40.5 % Normal 37.0-47.0 [facility] Hemoglobin mass conc (Bld) 13.7 g/dL Normal 12.0-16.0 [facility] Lymphocytes Auto #/vol (Bld) 2.0 10*3/uL Normal 1.0-4.8 [facility] Lymphocytes/100 WBC Auto (Bld) 15.5 % Normal [facility] MCH Auto Entitic mass (RBC) 32.4 pg Critically high 27.0-31.3 [facility] MCHC Auto mass conc (RBC) 33.9 % Normal 33.0-37.0 [facility] MCV Auto Entitic volume (RBC) 95.6 fL Normal 82.0-100.0 [facility] Monocytes Auto #/vol (Bld) 1.3 10*3/uL Critically high 0.2-0.8 [facility] Monocytes/100 WBC Auto (Bld) 10.1 % Normal [facility] Neutrophils Auto #/vol (Bld) 9.4 10*3/uL Critically high 1.4-6.5 [facility] Neutrophils/100 WBC Auto (Bld) 73.0 % Normal [facility] Platelets Auto #/vol (Bld) 168 10*3/uL Normal 130-400 [facility] RBC Auto #/vol (Bld) 4.24 10*6/uL Normal 4.20-5.40 [facility] WBC Auto #/vol (Bld) 12.9 10*3/uL Critically high 4.8-10.8 [facility] POCT Glucoseon 06-05-2018 Glucose mass conc 132 mg/dL Critically high 60-115 [facility] XR LUMBAR SPINE (2-3 VIEWS)o n 06-05-2018 [...] by:ANDRA Sotoigned by:Tanvir Power MD06/05/18Final result Normal [facility] Basic Metabolic Panel Reflex Mgon 06-04-2018 Anion gap 3 molar conc 13 mmol/L Normal 7-13 [facility] Calcium mass conc 9.1 mg/dL Normal 8.6-10.2 [facility] Chloride molar conc 103 mmol/L Normal 98-107 [facility] CO2 molar conc 23 mmol/L Normal 22-29 [facility] Creatinine mass conc 1.08 mg/dL Critically high 0.50-0.90 [facility] GFR/1.73 sq M predicted among blacks MDRD vol rate/area (S/P/Bld) mL/min/{1.73_m2} Normal >60 [facility] Comment on above: Result Comment: >60 mL/min/1.73m2 EGFR, calc. for ages 18 and older using theMDRD formula (not corrected for weight), is valid for stablerenal function. GFR/1.73 sq M.predicted MDRD vol rate/area 50.4 mL/min/{1.73_m2} Low >60 [facility] Comment on above: Result Comment: >60 mL/min/1.73m2 EGFR, calc. for ages 18 and older using theMDRD formula (not corrected for weight), is valid for stablerenal function. Glucose mass conc 164 mg/dL Critically high 74-109 [facility] Potassium reflex Mg 4.3 mEq/L Normal 3.5-5.1 [facility] Sodium molar conc 139 mmol/L Normal 132-144 [facility] Urea nitrogen mass conc 21 mg/dL Normal 8-23 [facility] CBC With Platelet No Differe ntialon 06-04-2018 Erythrocyte distribution width Auto Ratio (RBC) 13.4 % Normal 11.5-14.5 [facility] Hematocrit Auto Volume Fraction (Bld) 44.5 % Normal 37.0-47.0 [facility] Hemoglobin mass conc (Bld) 15.2 g/dL Normal 12.0-16.0 [facility] MCH Auto Entitic mass (RBC) 32.6 pg Critically high 27.0-31.3 [facility] MCHC Auto mass conc (RBC) 34.3 % Normal 33.0-37.0 [facility] MCV Auto Entitic volume (RBC) 95.1 fL Normal 82.0-100.0 [facility] Platelets Auto #/vol (Bld) 163 10*3/uL Normal 130-400 [facility] RBC Auto #/vol (Bld) 4.68 10*6/uL Normal 4.20-5.40 [facility] WBC Auto #/vol (Bld) 8.3 10*3/uL Normal 4.8-10.8 [facility] FLUORO FOR SURGICAL PROCEDUR ESon 06-04-2018 FLUORO [...] the soft tissue anterior to the spinal column.[place] bone intact.Please see procedural note for more detailed.IMPRESSION: INTRAOPERATIVE PLIF L3-L5.Interpreted by:ANDRA Dominguezigned by:Joss Casas MD06/04/18inal result Normal [facility] POCT Glucoseon 06-04-2018 Glucose mass conc 106 mg/dL Normal 60-115 [facility] POC Performed on ACCU-CHEK Normal [facility] Surgical Specimenon 06-04-20 18 Surgical Specimen Invalid Interpretation Code [facility] Comment on above: Result Comment: [place] [id number] [facility] SURGICAL PATHOLOGY REPORTPatient Name: MARLENI DENNIS Accession No: [id number] Age Sex: 1950 Location: DIS [id number] No: [id number] Collected: 06/04/2018Med Rec No: [id number] Received: 06/05/2018Attend Phys: SHAKA DESIRAE Completed: 06/07/2018Perform [...] two cassettes after a brief decalcification. ALDWA/SCDANCPT: [id number] M1YMAZWCGIULIA ENGEL M.D. 06/07/2018 Electronically signed out by Page 1 of 1 Basic Metabolic Panelon Anion gap 3 molar conc 14 mmol/L Critically high 7-13 [facility] Calcium mass conc 9.7 mg/dL Normal 8.6-10.2 [facility] Chloride molar conc 100 mmol/L Normal 98-107 [facility] CO2 molar conc 25 mmol/L Normal 22-29 [facility] Creatinine mass conc 1.15 mg/dL Critically high 0.50-0.90 [facility] GFR/1.73 sq M predicted among blacks MDRD vol rate/area (S/P/Bld) 56.7 mL/min/{1.73_m2} Low >60 [facility] Comment on above: Result Comment: >60 mL/min/1.73m2 EGFR, calc. for ages 18 and older using theMDRD formula (not corrected for weight), is valid for stablerenal function. GFR/1.73 sq M.predicted MDRD vol rate/area 46.8 mL/min/{1.73_m2} Low >60 [facility] Comment on above: Result Comment: >60 mL/min/1.73m2 EGFR, calc. for ages 18 and older using theMDRD formula (not corrected for weight), is valid for stablerenal function. Glucose mass conc 107 mg/dL Normal 74-109 [facility] Potassium molar conc 3.6 mmol/L Normal 3.5-5.1 [facility] Sodium molar conc 139 mmol/L Normal 132-144 [facility] Urea nitrogen mass conc 21 mg/dL Normal 8-23 [facility] CBC With Platelet No Differe ntialon 05-23-2018 Erythrocyte distribution width Auto Ratio (RBC) 13.5 % Normal 11.5-14.5 [facility] Hematocrit Auto Volume Fraction (Bld) 44.4 % Normal 37.0-47.0 [facility] Hemoglobin mass conc (Bld) 15.5 g/dL Normal 12.0-16.0 [facility] MCH Auto Entitic mass (RBC) 33.0 pg Critically high 27.0-31.3 [facility] MCHC Auto mass conc (RBC) 34.9 % Normal 33.0-37.0 [facility] MCV Auto Entitic volume (RBC) 94.4 fL Normal 82.0-100.0 [facility] Platelets Auto #/vol (Bld) 199 10*3/uL Normal 130-400 [facility] RBC Auto #/vol (Bld) 4.71 10*6/uL Normal 4.20-5.40 [facility] WBC Auto #/vol (Bld) 7.0 10*3/uL Normal 4.8-10.8 [facility] Culture, MRSA Screenon 05-23 Culture, MRSA Screen O RDERED BY: CLIFTON STONE: Nares Nasal COLLECTED: 05/23/18 11:37ANTIBIOTICS AT SERGIO.: RECEIVED : 05/23/18 11:37Culture, MRSA Screen FINAL 05/24/18 12:57 No MRSA isolated Normal [facility] Culture, Urineon 05-23-2018 Culture, Urine OR DERED BY: CLIFTON STONE: Urine Clean Catch COLLECTED: 05/23/18 12:44ANTIBIOTICS AT SERGIO.: RECEIVED : 05/23/18 12:44Culture, Urine FINAL 05/25/18 10:55 No growth 24 hours Normal [facility] Prothrombin Timeon 8 INR Coag RelTime (PPP) 1.1 {INR} Normal [facility] Comment on above: Result Comment: Neri mmended [...] Coag time (PPP) 11.0 s Normal 9.6-12.3 [facility] Type and Screen Capture 3 sc rn cellon 05-23-2018 Bilirubin mass conc PATIENT: WENDY DOWNEY [id number] : 1950 SEX: FORDERED BY: CHASE Lua ORDERED : 05/23/2018 09:33 COLLECTED: 05/23/2018 11:41ORDER : [id number] RECEIVED : 05/23/2018 11:41 -----TEST NAME RESULT UNITS RANGES ABN FL STABORH Capture AB POS FAntibody 3 Cell Scrn Captu NEG F Normal [facility] Urinalysis, reflex to cultur winnie 05-23-2018 Urine Reflexed to Culture YES Normal [facility] Bilirubin Ql (U) Negative Normal Negative [facility] Clarity Nom (U) Clear Normal Clear [facility] Color Nom (U) Yellow Normal Straw/Erath [facility] Glucose Ql (U) Negative Normal Negative [facility] Hemoglobin Test strip Ql (U) Negative Normal Negative [facility] Ketones Ql (U) TRACE Abnormal Negative [facility] Leukocyte esterase Test strip Ql (U) TRACE Abnormal Negative [facility] Nitrite Test strip Ql (U) Negative Normal Negative [facility] pH Test strip (U) 6.0 [pH] Normal 5.0-9.0 [facility] Protein Test strip Ql (U) TRACE Abnormal Negative [facility] Specific gravity Relative Density (U) 1.010 Normal 1.005-1.03 [facility] Urobilinogen Test strip Qn (U) 0.2 {Dago'U}/dL Normal < 2.0 [facility] Urine Microscopicon 05-23-20 18 Casts LM.LPF #/area (Urine sed) 0-1 Hyaline Normal [facility] RBC Test strip #/vol (U) 0-2 Normal 0-2 [facility] Urine Amorphous 1+ Normal [facility] WBC #/vol (U) 3-5 Normal 0-5 [facility] XR SPINE ENTIRE (2-3 VIEWS)o n 05-23-2018 XR SPINE ENTIRE (2-3 VIEWS) PREOP NO DICTATION Interpreted by: Barb Wetzel MD Signed by: Barb Wetzel MD 06/08/18 Final result Normal [facility] Vital Signs Date Time Vital Sign Value Performing Clinician Facility 04-11-2025 12:14-0400 Body temperature 98 [degF] Jack Vogt II Work Phone: [facility] 04-11-2025 12:14-0400 Diastolic blood pressure 75 mm[Hg] Jack Vogt II Work Phone: [facility] 04-11-2025 12:14-0400 Heart rate 66 /min Jack Vogt II Work Phone: [facility] 04-11-2025 12:14-0400 Respiratory rate 18 /min Jack Vogt II Work Phone: [facility] 04-11-2025 12:14-0400 SaO2% (BldA) [Mass fraction] 90 % Jack Vogt II Work Phone: [facility] 04-11-2025 12:14-0400 Systolic blood pressure 171 mm[Hg] Jack Vogt II Work Phone: [facility] 04-11-2025 04:55-0400 Body weight 65.4 kg Jack Vogt II Work Phone: [facility] 04-10-2025 07:28-0400 Inhaled oxygen flow rate 3 L/min Jack Vogt II Work Phone: [facility] 04-09-2025 02:12-0400 Body height 154.94 cm Jack Vogt II Work Phone: [facility] 04-09-2025 01:25-0400 SaO2% (BldA) [Mass fraction] 96 % Jack Vogt II Work Phone: [facility] 04-09-2025 01:09-0400 Diastolic blood pressure 77 mm[Hg] Jack Vogt II Work Phone: [facility] 04-09-2025 01:09-0400 Heart rate 71 /min Jack Vogt II Work Phone: [facility] 04-09-2025 01:09-0400 Inhaled oxygen flow rate 2 L/min Jack Vogt II Work Phone: [facility] 04-09-2025 01:09-0400 Respiratory rate 18 /min Jack Vogt II Work Phone: [facility] 04-09-2025 01:09-0400 Systolic blood pressure 176 mm[Hg] Jack Vogt II Work Phone: [facility] 04-08-2025 18:56-0400 Body temperature 98.5 [degF] Jack Vogt II Work Phone: [facility] 04-08-2025 17:59-0400 Body height 154.94 cm Jack Vogt II Work Phone: [facility] 04-08-2025 17:59-0400 Body weight 65.77 kg Jack Vogt II Work Phone: [facility] 04-08-2025 16:22-0400 Diastolic blood pressure 70 mm[Hg] Jack Vogt II Work Phone: [facility] 04-08-2025 16:22-0400 Systolic blood pressure 168 mm[Hg] Jack Vogt II Work Phone: [facility] 04-08-2025 16:02-0400 Body height 154.94 cm Jack Vogt II Work Phone: [facility] 04-08-2025 16:02-0400 Body mass index (BMI) [Ratio] 27.3 kg/m2 Jack Vogt II Work Phone: [facility] 04-08-2025 16:02-0400 Body weight 65.77 kg Jack Vogt II Work Phone: [facility] 04-08-2025 16:02-0400 Heart rate 63 /min Jack Vogt II Work Phone: [facility] 04-08-2025 16:02-0400 Respiratory rate 16 /min Jack Vogt II Work Phone: [facility] 04-08-2025 16:02-0400 SaO2% (BldA) [Mass fraction] 99 % Jack Vogt II Work Phone: [facility] 04-02-2025 14:31-0400 Body temperature 97.5 [degF] 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 MOTOR POOL CLERK Work Phone: [facility] 04-02-2025 14:31-0400 Heart rate 58 /min 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 MOTOR POOL CLERK Work Phone: [facility] 04-02-2025 14:31-0400 SaO2% (BldA) [Mass fraction] 98 % 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 MOTOR POOL CLERK Work Phone: [facility] 03-24-2025 16:44-0400 Body height 157.5 cm Jack Vogt MD Work Phone: [facility] 03-24-2025 16:44-0400 Body mass index (BMI) [Ratio] 26.34 kg/m2 Jack Vogt MD Work Phone: [facility] 03-24-2025 16:44-0400 Body weight 65.32 kg Jack Vogt MD Work Phone: [facility] 03-24-2025 16:44-0400 Diastolic blood pressure 56 mm[Hg] Jack Vogt MD Work Phone: [facility] 03-24-2025 16:44-0400 Heart rate 76 /min Jack Vogt MD Work Phone: [facility] 03-24-2025 16:44-0400 SaO2% (BldA) [Mass fraction] 99 % Jack Vogt MD Work Phone: [facility] 03-24-2025 16:44-0400 Systolic blood pressure 164 mm[Hg] Jack Vogt MD Work Phone: [facility] 02-25-2025 11:40-0400 Body height 157.5 cm Renetta Moncada MOTOR POOL CLERK Work Phone: [facility] 02-25-2025 11:40-0400 Body mass index (BMI) [Ratio] 26.89 kg/m2 Renetta Micheal [employer]OR POOL CLERK Work Phone: [facility] 02-25-2025 11:40-0400 Body weight 66.68 kg Renetta Mciheal [employer]OR POOL CLERK Work Phone: [facility] 02-25-2025 11:40-0400 Diastolic blood pressure 64 mm[Hg] Renetta Micheal [employer]OR POOL CLERK Work Phone: [facility] 02-25-2025 11:40-0400 Heart rate 74 /min Renetta Whitharral [employer]OR PO[employer] CLERK Work Phone: [facility] 02-25-2025 11:40-0400 Respiratory rate 16 /min Renetta Micheal [employer]OR PO[employer] CLERK Work Phone: [facility] 02-25-2025 11:40-0400 SaO2% (BldA) [Mass fraction] 97 % Renetta Micheal [employer]OR POOL CLERK Work Phone: [facility] 02-25-2025 11:40-0400 Systolic blood pressure 138 mm[Hg] Renetta Whitharral MOTOR POOL CLERK Work Phone: [facility] 01-02-2025 09:40-0400 Body height 158.8 cm Jack Vogt MD Work Phone: [facility] 01-02-2025 09:40-0400 Body mass index (BMI) [Ratio] 28.08 kg/m2 Jack Vogt MD Work Phone: [facility] 01-02-2025 09:40-0400 Body weight 70.76 kg Jack Vogt MD Work Phone: [facility] 01-02-2025 09:40-0400 Diastolic blood pressure 66 mm[Hg] Jack Vogt MD Work Phone: [facility] 01-02-2025 09:40-0400 Heart rate 62 /min Jack Vogt MD Work Phone: [facility] 01-02-2025 09:40-0400 SaO2% (BldA) [Mass fraction] 96 % Jack Vogt MD Work Phone: [facility] 01-02-2025 09:40-0400 Systolic blood pressure 138 mm[Hg] Jack Vogt MD Work Phone: [facility] 12-12-2024 11:41-0400 Body height 158.8 cm Jack Vogt MD Work Phone: [facility] 12-12-2024 11:41-0400 Body mass index (BMI) [Ratio] 28.44 kg/m2 Jack Vogt MD Work Phone: [facility] 12-12-2024 11:41-0400 Body weight 71.67 kg Jack Vogt MD Work Phone: [facility] 12-12-2024 11:41-0400 Diastolic blood pressure 62 mm[Hg] Jack Vogt MD Work Phone: [facility] 12-12-2024 11:41-0400 Heart rate 65 /min Jack Vogt MD Work Phone: [facility] 12-12-2024 11:41-0400 SaO2% (BldA) [Mass fraction] 96 % Jack Vogt MD Work Phone: [facility] 12-12-2024 11:41-0400 Systolic blood pressure 132 mm[Hg] Jack Vogt MD Work Phone: [facility] 11-18-2024 13:19-0500 Blood Pressure Location Alfredocodi CARDENAS [facility] 11-18-2024 13:19-0500 Body temperature 98.6 [degF] Alfredo CARDENAS [facility] 11-18-2024 13:19-0500 Diastolic blood pressure 75 mm[Hg] Alfredo CARDENAS [facility] 11-18-2024 13:19-0500 Heart rate 70 /min Alfredo CARDENAS [facility] 11-18-2024 13:19-0500 Respiratory rate 16 /min Alfredocodi CARDENAS [facility] 11-18-2024 13:19-0500 Systolic blood pressure 135 mm[Hg] Alfredo CARDENAS [facility] 11-23-2023 14:31-0500 Body height 160.02 cm II Jack Vogt Work Phone: [facility] 11-23-2023 14:31-0500 Body mass index (BMI) [Ratio] 31 kg/m2 II Jack Vogt Work Phone: [facility] 11-23-2023 14:31-0500 Body weight 79.46 kg II Jack Vogt Work Phone: [facility] 10-23-2023 12:31-0500 Blood Pressure Location Alfredo CARDENAS [facility] 10-23-2023 12:31-0500 Diastolic blood pressure 83 mm[Hg] Alfredo CARDENAS [facility] 10-23-2023 12:31-0500 Heart rate 62 /min Alfredo CARDENAS [facility] 10-23-2023 12:31-0500 Respiratory rate 16 /min Alfredo CARDENAS [facility] 10-23-2023 12:31-0500 Systolic blood pressure 163 mm[Hg] Alfredo CARDENAS [facility] 09-26-2022 12:59-0500 Blood Pressure Location Alfredo CARDENAS [facility] 09-26-2022 12:59-0500 Diastolic blood pressure 76 mm[Hg] Alfredo CARDENAS [facility] 09-26-2022 12:59-0500 Heart rate 78 /min Alfredo CARDENAS [facility] 09-26-2022 12:59-0500 Respiratory rate 16 /min Alfredo CARDENAS [facility] 09-26-2022 12:59-0500 Systolic blood pressure 124 mm[Hg] Alfredo CARDENAS [facility] 03-04-2022 10:16-0400 Blood Pressure Location Alfredo CARDENAS [facility] 03-04-2022 10:16-0400 Diastolic blood pressure 70 mm[Hg] Alfredo CARDENAS [facility] 03-04-2022 10:16-0400 Heart rate 56 /min [facility] 03-04-2022 10:16-0400 Respiratory rate 16 /min Alfredo [facility]S [facility] 03-04-2022 10:16-0400 Systolic blood pressure 129 mm[Hg] Alfred[facility] En[facility] Encounter Date Encounter Type Care Provider Facility Start: 11-24-2025 ambulatory Alfredo Hopei ty:[facility] [place] Start: 06-09-2025 End: 06-09-2025 Bamboo flowsheet Jack Vogt MD Work Phone: [facility] [place] [facility] Start: 06-09-2025 End: 06-09-2025 Bamboo flowsheet Jack Vogt MD Work Phone: [facility] [place] [facility] Start: 04-08-2025 End: 04-11-2025 Evaluation and management of inpatient Rajiv Valdez MD -[address] [place] [address] Work Phone: Start: 04-08-2025 Non-patient / Non-visit Andrew Arrington MD -Counts Include [facility] B[facility] Work Phone: Start: 04-08-2025 End: 04-08-2025 ambulatory Jack Vogt II Work Phone: [facility] Work Phone: Start: 04-08-2025 End: 04-08-2025 Patient encounter procedure Elsy Patino MD -[facility] [place] Work Phone: Start: 04-04-2025 End: 04-04-2025 ambulatory CARA SANCHEZ [facility] Start: 04-02-2025 End: 04-02-2025 Home visit est pt mod-hi severity 40 minutes 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 MOTOR POOL CLERK Work Phone: [facility] Comment on above: Benign essential hyp ertension (Primary Dx); Chronic kidney disease, stage 4 (severe) (HCC); Localized edema; Right flank pain; Routine lab draw Start: 04-02-2025 End: 04-02-2025 Patient encounter status 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 MOTOR POOL CLERK Work Phone: [facility] Start: 03-25-2025 End: 03-25-2025 Refill Summer Feliciano LPN [facility] Comment on above: Benign essential hyp ertension ; Gastroesophageal reflux disease, unspecified whether esophagitis present; Insomnia due to medical condition Start: 03-24-2025 End: 03-24-2025 ambulatory JACK VOGT Not Available Start: 03-24-2025 End: 03-24-2025 Transitional care manage srvc 14 day discharge Jack Vogt MD Work Phone: [facility] Comment on above: 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); Type 2 diabetes mellitus with stage 4 chronic kidney disease, without long-term current use of insulin (HCC); Insomnia due to medical condition; Chronic kidney disease, stage 4 (severe) ([facility]); Primary osteoarthritis of both knees Start: 03-14-2025 Evaluation and manag ement of inpatient [facility] Start: 03-13-2025 Evaluation and manag ement of inpatient [facility] Start: 03-13-2025 Evaluation and manag ement of inpatient [facility] Start: 03-13-2025 Evaluation and manag ement of inpatient [facility] Start: 03-13-2025 End: 03-20-2025 Evaluation and management of inpatient BARBY KAMARA [facility] Start: 02-25-2025 End: 02-25-2025 Damienbocharbel flowsheet Renetta Moncada MOTOR POOL CLERK Work Phone: [facility] Start: 02-25-2025 End: 02-25-2025 Bamboo flowsheet Renetta Moncada MOTOR POOL CLERK Work Phone: [facility] Start: 02-25-2025 End: 02-25-2025 Office outpatient visit 25 minutes Renetta Moncada MOTOR POOL CLERK Work Phone: [facility] Comment on [...] above: Routine general medi billie examination at health care facility (Primary Dx); ACP (advance care planning); Spinal stenosis, lumbar region with neurogenic claudication; Stage 3b chronic kidney disease (HCC) ([facility]/HCC); Pulmonary fibrosis, unspecified (CMS/HCC); Type 2 diabetes mellitus with diabetic peripheral angiopathy without gangrene ([facility]/HCC); Localized edema Start: 11-18-2024 End: 11-18-2024 ambulatory Alfredo Griffin CARDENAS Facility:[facility] Start: 11-18-2024 End: 11-18-2024 Patient encounter procedure Alfredo CARDENAS [facility] Start: 11-03-2024 End: 11-04-2024 Refill Jack Vogt MD Work Phone: [facility] Comment on above: Anxiety Start: 09-30-2024 End: 09-30-2024 ambulatory Alfredo Griffin CARDENAS Facility:[facility] Start: 09-30-2024 End: 09-30-2024 Patient encounter procedure Alfredo R [facility]DENAS [facility] Start: 09-16-2024 End: 09-19-2024 Claudia Vogt MD Work Phone: [facility] Comment on above: 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 Start: 03-19-2024 End: 03-19-2024 ambulatory Maria Luisa X Orzech Facility:[facility] Start: 03-19-2024 End: 03-19-2024 Patient encounter procedure Maria Luisa X Orzech [facility] Start: 03-05-2024 ambulatory Maria Luisa X Orzech Facilit y:[facility] [place] Start: 02-05-2024 End: 02-05-2024 ambulatory II Jack Vogt Work Phone: [facility] Work Phone: Start: 02-05-2024 End: 02-05-2024 Patient encounter procedure II Jack Vogt Work Phone: [facility] Work Phone: Start: 11-23-2023 End: 11-23-2023 Patient encounter procedure II Jack Vogt Work Phone: [facility] Work Phone: Start: 10-23-2023 End: 10-23-2023 Patient encounter procedure Alrfedo CARDENAS [facility] Start: 01-18-2023 End: 01-19-2023 ambulatory CARLYN DODGE Facility:[facility] Start: 01-10-2023 End: 01-11-2023 ambulatory CARLYN DODGE Facility:[facility] Start: 09-26-2022 End: 09-26-2022 Patient encounter procedure Alfredo CARDENAS [facility] Start: 09-07-2022 End: 09-08-2022 ambulatory RENETTA MONCADA Facility:[facility] Start: 08-29-2022 End: 08-30-2022 ambulatory ALFREDO CARDENAS Facility:[facility] Start: 03-16-2022 End: 03-17-2022 ambulatory JOHN LUTHER Facility:[facility] Start: 03-04-2022 End: 03-04-2022 Patient encounter procedure Alfredo CARDENAS [facility] Start: 02-22-2022 End: 02-23-2022 ambulatory ALFREDO CARDENAS Facility:[facility] Start: 02-16-2022 End: 02-17-2022 ambulatory JOHN LUTHER Facility:[facility] Start: 02-04-2022 End: 02-05-2022 ambulatory [facility] Facility:[facility] Start: 02-02-2022 End: 02-02-2022 Patient encounter procedure II [facility]t [facility] Start: 01-31-2022 End: 02-01-2022 ambulatory [facility] Facility:[facility] Start: 06-04-2018 End: 06-07-2018 Evaluation and management of inpatient [facility] Start: 05-23-2018 End: 05-26-2018 Patient encounter [facility] Start: 05-23-2018 End: 05-28-2018 Patient encounter [facility] Procedures Date Procedure Procedure Detail Performing Clinician Start: 04-08-2025 Antibody screen Tony Oscar allison Comment on above: Result Comment: PERF ORMED BY: [facility] [address] [place] [address] PATHOLOGIST [employer]ER ELIZABETH MOREL M.D. Start: 04-08-2025 Plain chest [...] breasts II Jack Vogt Work Phone: Start: 03-17-2021 Colonoscopy Generic Pr [...] Start: 06-05-2018 ELEVATE HEELS OFF OF BED SHKAA DESIRAE Start: 06-05-2018 HEAD OF BED 60 [...] DESIRAE Start: 06-04-2018 PULSE OXIMETRY, CONTINUOUS SHAKA DSEIRAE Start: 06-04-2018 INCENTIVE SPIROMETRY RT SHAKA DESIRAE Start: 06-04-2018 PLACE INTERMITTENT PNEUMATIC COMPRESSION DEVICE SHAKA DESIRAE Start: 06-04-2018 PULSE OXIMETRY, CONTINUOUS SHAKA DESIRAE Start: 06-04-2018 ADVANCE DIET CRYSTALE RATED (NURSING COMMUNICATION) SHAKA DESIRAE Start: 06-04-2018 [...] Medicare Annual Wellness (AWV) [facility] Start: 06-09-2025 End: 06-09-2025 Patient encounter procedure 06/09/2025 11:15 AM EDT Office Visit MARYSOL Farooq [address] [facility] [address] [place] [address] Jack Vogt MD [address] [facility] [address] [place] [address] Arrived MARYSOL Farooq Comment on above: Arrived Start: 05-26-2025 End: 05-26-2025 Patient encounter procedure 05/26/2025 3:30 PM EDT Office Visit NOMB[facility] EVERETT [address] [facility] [address] [place] [address] Jack Vogt MD [address] [facility] [address] [place] [address] [facility] Start: 05-19-2025 Influenza vaccination [facility] Start: 04-11-2025 [facility] Start: 04-10-2025 Referral to rehabili tation physician [facility] Start: 04-10-2025 [facility] Start: 04-09-2025 [facility] Start: 04-08-2025 Physical therapy procedure [facility] Start: 04-08-2025 Referral to occupati onal therapist [facility] Start: 04-08-2025 [facility] Start: 04-08-2025 Referral to jig grinder [facility] Start: 04-08-2025 Referral to hip hop dancer [facility] Start: 04-08-2025 Hospital admission [facility] Start: 04-02-2025 End: 04-02-2026 CBC W Auto Differential panel - Blood CBC and differential Lab Routine Benign essential hypertension Chronic kidney disease, stage 4 (severe) (HCC) Localized edema Expected: 04/02/2025 (Approximate), Expires: 04/02/2026 [facility] Work Phone: Comment on above: Expected: 04/02/2025 (Approximate), Expires: 04/02/2026 Start: 04-02-2025 End: 04-02-2026 Comprehensive metabolic 2000 panel - Serum or Plasma Comprehensive metabolic panel Lab Routine Benign essential hypertension Chronic kidney disease, stage 4 (severe) (HCC) Localized edema Expected: 04/02/2025 (Approximate), Expires: 04/02/2026 [facility] Comment on above: Expected: 04/02/2025 (Approximate), Expires: 04/02/2026 Start: 04-02-2025 End: 04-02-2026 URINALYSIS, COMPLETE W/REFLEX TO CULTURE URINALYSIS, COMPLETE W/REFLEX TO CULTURE Lab Routine Right flank pain Expected: 04/02/2025 (Approximate), Expires: 04/02/2026 [facility] Comment on above: Expected: 04/02/2025 (Approximate), Expires: 04/02/2026 Start: 03-14-2025 Hemoglobin A1c measurement Neeta betes: Hemoglobin A1C [facility] Start: 02-25-2025 End: 02-25-2026 DXA Skeletal system Views for bone density DEXA bone density Imaging Routine Decreased estrogen level Expected: 02/25/2025, Expires: 02/25/2026 [facility] Comment on above: Expected: 02/25/2025 , Expires: 02/25/2026 Start: 02-25-2025 End: 02-25-2026 US Thyroid gland US thyroid Imaging Routine Thyroid nodule ([facility]) Hair loss Other fatigue Weight loss Expected: 02/25/2025, Expires: 02/25/2026 [facility] Work Phone: Comment on above: Expected: 02/25/2025 , Expires: 02/25/2026 Start: 02-25-2025 End: 02-25-2025 Patient encounter procedure 02/25/2025 11:30 AM EDT Office Visit [facility] [address] [facility] [address] [place] [address] Renetta Moncada NP [address] [facility] [address] [place] [address] Arrived [facility] Comment on above: Arrived Start: 02-04-2025 Screening for malign ant neoplasm of breast Mammogram [facility] Start: 01-02-2025 End: 01-02-2025 Patient encounter procedure 01/02/2025 9:30 AM EDT Office Visit [facility] [address] [facility] [address] [place] [address] Jack Vogt MD [address] [facility] [address] [place] [address] [facility] Start: 12-12-2024 End: 12-12-2025 Comprehensive metabolic 2000 panel - Serum or Plasma Comprehensive metabolic panel Lab Routine Stage 3b chronic kidney disease (HCC) ([facility]/HCC) Expected: 12/12/2024 (Approximate), Expires: 12/12/2025 [facility] Comment on above: Expected: 12/12/2024 (Approximate), Expires: 12/12/2025 Start: 12-12-2024 End: 12-12-2025 Lipid 1996 panel - Serum or Plasma Lipid panel Lab Routine Type 2 diabetes mellitus with diabetic peripheral angiopathy without gangrene ([facility]/HCC) Expected: 12/12/2024 (Approximate), Expires: 12/12/2025 [facility] Comment on above: Expected: 12/12/2024 (Approximate), Expires: 12/12/2025 Start: 12-12-2024 Medicare Annual Well ness (AWV) Medicare Annual Wellness (AWV) [facility] Start: 12-12-2024 End: 12-12-2025 Thyrotropin [Units/volume] in Serum or Plasma TSH Lab Routine Localized edema Expected: 12/12/2024 (Approximate), Expires: 12/12/2025 [facility] Work Phone: Comment on above: Expected: 12/12/2024 (Approximate), Expires: 12/12/2025 Start: 12-12-2024 End: 12-12-2025 Thyroxine (T4) free [Mass/volume] in Serum or Plasma T4, free Lab Routine Localized edema Expected: 12/12/2024 (Approximate), Expires: 12/12/2025 [facility] Comment on above: Expected: 12/12/2024 (Approximate), Expires: 12/12/2025 Start: 12-12-2024 End: 12-12-2025 Triiodothyronine (T3) Free [Mass/volume] in Serum or Plasma T3, free Lab Routine Localized edema Expected: 12/12/2024 (Approximate), Expires: 12/12/2025 [facility] Comment on above: Expected: 12/12/2024 (Approximate), Expires: 12/12/2025 Start: 12-12-2024 Urine screening for protein Di abetes: Urine Protein Screening [facility] Start: 12-12-2024 End: 12-12-2024 Patient encounter procedure 12/12/2024 11:30 AM EDT [facility] [address] [facility] [address] [place] [address] Jack Vogt MD [address] [facility] [address] [place] [address] [facility] Start: 11-18-2024 Glaucoma screening Diabetes: R etinopathy Screening [facility] Start: 06-20-2024 Hemoglobin A1c measurement Neeta betes: Hemoglobin A1C [facility] Start: 05-19-2024 Influenza vaccination Influenza Vacc ine (#1) [facility] Start: 1950 Screening for malign ant neoplasm of colon [facility] Albumin/Globulin ratio [facility] Anion gap measurement [facility] aPTT in Platelet poo r plasma by Coagulation assay [facility] Basophils [#/volume] in Blood by Automated count [facility] Basophils/100 leukoc ytes in Blood by Automated count [facility] CBC W Auto Different ial panel - Blood CBC and differential Lab Routine Stage 3b chronic kidney disease (HCC) (CMS/HCC) Ordered: 12/12/2024 [facility] Comment on above: Ordered: 12/12/2024 Eosinophils/100 leuk ocytes in Blood by Automated count [facility] Erythrocyte distribu tion width [Ratio] by Automated count [facility] Erythrocytes [#/volu me] in Blood [facility] Globulin [Mass/volum e] in Serum [facility] Hematocrit [Volume Fraction] of Blood [facility] Hemoglobin [Mass/vol ume] in Blood [facility] INR in Platelet poor plasma by Coagulation assay [facility] Leukocytes [#/volume ] corrected for nucleated erythrocytes in Blood by Automated coun [facility] Leukocytes [#/volume ] in Blood [facility] Lymphocytes [#/volum e] in Blood by Automated count [facility] Lymphocytes/100 leuk ocytes in Blood by Automated count [facility] MCH [Entitic mass] b y Automated count [facility] MCHC [Mass/volume] b y Automated count [facility] MCV [Entitic volume] by Automated count [facility] Monocytes [#/volume] in Blood by Automated count [facility] Monocytes/100 leukoc ytes in Blood by Automated count [facility] Neutrophils [#/volum e] in Blood by Automated count [facility] Neutrophils/100 leuk ocytes in Blood by Automated count [facility] Nucleated erythrocyt es [Presence] in Blood by Automated count [facility] Patient Education Hope Pamphlet [facility] Work Phone: Patient referral [facility] Work Phone: Platelet mean volume [Entitic volume] in Blood by Automated count [facility] Platelets [#/volume] in Blood [facility] Prothrombin time (PT) [facility] Renal function 2000 panel - Serum or Plasma [facility] Immunizations Immunization Date Immunization Notes Care Provider Fa cility 07-04-2022 influenza virus vacc ine, unspecified formulation Alfredo CARDENAS [facility] 07-04-2022 Influenza, Seasonal, Quadrivalent, Adjuvanted Generic Provider [facility] 07-04-2022 Moderna Bivalent Cervantes ster Vaccination Generic Provider [facility] 07-04-2022 SARS-CoV-2 (COVID-19 ) [id number] Alfredo CARDENAS [facility] 06-24-2021 influenza virus vacc ine, unspecified formulation Alfredo CARDENAS [facility] 06-24-2021 Influenza, High-dose Seasonal, Quadrivalent, Preservative Free Generic Provider [facility] 06-24-2021 SARS-CoV-2 (COVID-19 ) mRNA BNT-162b2 vax Alfredo CARDENAS [facility] Comment on above: Result Comment: 2022: TPV70 11-17-2020 SARS-CoV-2 (COVID-19 ) mRNA BNT-162b2 vax Alfredo CARDENAS [facility] Comment on above: Result Comment: 2022: TPV70 10-27-2020 SARS-CoV-2 (COVID-19 ) mRNA BNT-162b2 vax Alfredo CARDENAS [facility] Comment on above: Result Comment: 2022: TPV70 07-08-2020 influenza virus vacc ine, unspecified formulation Alfredo CARDENAS [facility] 07-08-2020 Influenza, Seasonal, Quadrivalent, Adjuvanted Generic Provider [facility] 07-08-2020 Smallpox Monkeypox, Live Attenuated, Preservative Free Generic Provider [facility] 04-01-2015 pneumococcal polysaccharide vaccine, 23 valent Generic Provider [facility] Payers Date Payer Category Payer Medicare [id number] 2025 Self-pay [id number] 2023 Medicare (Managed Care) 1.2. [id number] 2017 Medicare [id number] 1959 Medicare [id number] 1959 Private Health Insurance [facility] [id number] 1950 Unknown [id number] 2.840.1.850315.3.579.2.593 1949 Unknown [id number] .840.1.791814.3.579.2.593 1949 Unknown [id number] .840.1.519404.3.579.2.593 1949 Unknown [id number] .840.1.818548.3.579.2.593 1949 Unknown [id number] .16.840.1.815590.3.579.2.593 1949 Unknown [id number] 2..840.1.420102.3.579.2.593 1949 Unknown [id number] 2.16.840.1.706901.3.579.2.593 1949 Unknown [id number] 2.16.840.1.884298.3.579.2.593 1949 Unknown [id number] 2.16.840.1.988170.3.579.2.593 1949 Unknown [id number] 2.16.840.1.467363.3.579.2.593 1949 Unknown [id number] 2.16.840.1.433837.3.579.2.727 1949 Unknown [id number] 2.16.840.1.288920.3.579.2.727 1949 Unknown [id number] 2.16.840.1.069777.3.579.2.727 1949 Unknown [id number] 2.16.840.1.914091.3.579.2.727 1949 Unknown [id number] 2.16.840.1.099097.3.579.2.727 1949 Unknown [id number] 2.16.840.1.388069.3.579.2.1259 1949 Unknown [id number] 2.16.840.1.158264.3.579.2.1259 1949 Unknown [id number] 2.16.840.1.281333.3.579.2.1259 1949 Unknown [id number] 2.16.840.1.743431.3.579.2.1259 Medicare Medicare [id number] Private Health Insurance [facility] [id number] Unknown [place] BC/BS [id number] Unknown [id number] 2.16.840.1.331234.3.579.2.531 Social History Date Type Detail Facility Start: 03-25-2021 End: 04-10-2025 Tobacco smoking status NHIS Ex-smoker (finding) [facility] Start: 03-20-2024 End: 02-25-2025 History of tobacco use [facility] Work Phone: Start: 1950 Sex Assigned At Female F [facility] Tobacco smoking status Never [facility] Start: 05-09-2023 Tobacco smoking status NHIS Never smoked tobacco [facility] Start: 05-09-2023 Tobacco use and exposure Smokeless tobacco non-user [facility] Start: 03-20-2024 End: 04-02-2025 Alcoholic beverage intake Not Asked [facility] Start: 03-20-2024 End: 02-25-2025 History of Social function [facility] Start: 05-10-2023 Alcohol Comment caffeine yes type:coffee [facility] Start: 1950 Sex assigned at Not on file N [facility] Start: 04-08-2025 Tobacco smoking status NHIS Current some day smoker [facility] Sex Female (finding) [facility] Start: 04-09-2025 End: 04-11-2025 SDOH Follow up SDOH Follow up [facility] Work Phone: NEGATED: Highlighted row [facility] Goals Date Patient Goal Desired Activity /State Personal health goal Functional Status Date Assessment Result Facility 02-25-2025 Patient Health Quest ionnaire 2 item (PHQ-2) [Reported] [facility] 02-25-2025 PHQ-9 quick depressi on assessment panel [Reported.PHQ] [facility] 11-18-2024 Functional Status N/A [facility] 03-19-2024 Functional Status N/A [facility] 10-23-2023 Functional Status N/A [facility] 09-26-2022 Functional Status N/A [facility] 03-04-2022 Functional Status N/A [facility] Clinical Notes 03-04-2022 to 04-09-2025 Note Date & Type Note Facility 04-09-2025 History and physi billie note Note Date/Time April 08, 2025 11:50pm [facility] [address] [place] [address] Hospitalist H&P Signed Patient: Marleni Dennis MR#: [id number] : 1950 Acct:[id number] Age/Sex: 74 / F Adm Date: 5 Loc: Room: [address] [place] [address] Type: ADM IN Attending Dr: Rajiv Trejo [...] anemia. Patient follows with her PCP in [place] and was referredto nephrology clinic for worsening [...] negative unless noted below or in HPI [facility] Medical History Iron deficiency anemia Former [...] (From Pneumovax-23) Allergy (Verified 04/08/25 18:01) Edema Vghvpav-LBT-NiC Reductase Inhibitor (Vicwbcj-Wba-Pox Reductase Inhibitor) Allergy (Verified 04/08/25 18:01) Unknown [...] % (Auto) 23.3 % (.) 04/08/25 18:54 [place] % (Auto) 10.0 % (.) 04/08/25 18:54 Eos % (Auto) 2.6 % (.) 04/08/25 18:54 Baso % (Auto) 1.0 % (.) 04/08/25 18:54 Nucleat RBC Rel Count 0.1 /100 WBC (0-0.5) 04/08/25 18:54 Neut # (Auto) 2.8 x10E3/uL (1.8-7.7) 04/08/25 18:54 Lymph # (Auto) 1.0 x10E3/uL (1.00-4.8) 04/08/25 18:54 [place] # (Auto) 0.4 x10E3/uL (0.0-0.8) 04/08/25 18:54 [...] pH 6.5 (5.0-9.0) 04/08/25 19:50 Ur Specific [place] 1.006 (1.001-1.030) 04/08/25 19:50 Urine Protein 50 [...] <Electronically signed by Rajiv Trejo MD> 04/08/25 [id number] [facility] Work Phone: 1(471) 173-817307-22-2025 History [place] [address] Hospitalist H&P Signed Patient: Marleni Dennis MR#: [id number] : 1950 Acct:[id number] Age/Sex: 74 / F Adm Date: 5 Loc: Room: [address] [place] [address] Type: ADM IN Attending Dr: Rajiv Trejo [...] anemia. Patient follows with her PCP in [place] and was referred to nephrology clinic for [...] negative unless noted below or in HPI [facility] Medical History Iron deficiency anemia Former [...] (From Pneumovax-23) Allergy (Verified 04/08/25 18:01) Edema Jalxbpw-AZG-BhK Reductase Inhibitor (Xsrlntg-Bmk-Jhs Reductase Inhibitor) Allergy (Verified 04/08/25 18:01) Unknown [...] % (Auto) 23.3 % (.) 04/08/25 18:54 [place] % (Auto) 10.0 % (.) 04/08/25 18:54 Eos % (Auto) 2.6 % (.) 04/08/25 18:54 Baso % (Auto) 1.0 % (.) 04/08/25 18:54 Nucleat RBC Rel Count 0.1 /100 WBC (0-0.5) 04/08/25 18:54 Neut # (Auto) 2.8 x10E3/uL (1.8-7.7) 04/08/25 18:54 Lymph # (Auto) 1.0 x10E3/uL (1.00-4.8) 04/08/25 18:54 [place] # (Auto) 0.4 x10E3/uL (0.0-0.8) 04/08/25 18:54 [...] pH 6.5 (5.0-9.0) 04/08/25 19:50 Ur Specific [place] 1.006 (1.001-1.030) 04/08/25 19:50 Urine Protein 50 [...] Trejo MD 04/08/2509 11 Signed By: 04/08/25 [id number] [facility]07-22-2025 Radiology Diagnostic study note [facility] Main [place] [address] [place] [address] CT Scan Report Signed Patient: Marleni Dennis MR#: [id number] : 1950 Acct:[id number] Age/Sex: 74 / F ADM Date: 5 Loc: ER Room: Type: [facility] ER Attending Dr: Copies to: Sohail Figueroa [...] Garnett M.D. 04/08/2025 8:27 PM Dictation Location: [place] [address] Transcribed By: [facility] 04/08/252026 Dictated By: Derek Garnett DO 04/08/252018 Signed By: 04/08/252026 [facility]07-22-2025 Evaluation note* Diagnosis Onset Date [...] 2025 9:16pm Melena acute April 08 9:16pm [facility] Work Phone: 1(827) 490-499707-22-2025 Evaluation note* Diagnosis Onset Date Resolution Status [...] Weakness generalized acute April 08, 2025 9:16pm [facility] Work Phone: 1(456) 443-552707-18-2025 NoteSUBJECTIVE Reason for Visit: Marleni Dennis is [...] and hx of DVT/PE. 03/12/2025 admitted to [facility] (initially presented to [facility]) for hypertension emergency. Systolics were as high as 250, lab work revealed elevated troponin without immediate concern for extreme changes on EKG. CT head was negative for acute process. Placed on Cardene drip initially. Nephrology was also consulted due to the patient's worsening TOMASA. 04/04/2025 office visit: Patient seen evaluated in the office today, accompanied by her llthoxvp-qb-arj. She denies chest pain, shortness of breath, palpitations. She endorses worsening lower extremity edema. On exam she has +3 LE edema. States she has an appointment on Monday with her hip hop dancer to decide on dialysis. 04/24/2024 office visit [...] elevated resistive index withi (more content not included)...[facility] 04-02-2025 History of Present illness Narrative* 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, MOTOR POOL CLERK - 04/02/2025 2:00 PM EDT Images from the original note were not included. Patient Demographics: Marleni Dennis Date of : 1950 Chief Complaint Patient [...] for pain. Pt was recently hospitalized at [facility] for hypertensive crisis. Pt also had an acute kidney injury superimposed on her CKD, stage IV. On discharge from the hospital, Cr was 3.69 and GFR 12.3. A referral to nephrology was sent to Dr. Espinosa in [place] during her hospital follow up visit on [...] up scheduled with Dr Espinosa 04/08 in [place] [address]. She is working on obtaining transportation with [...] bilateral femoral stent FEMORAL ARTERY STENT Bilateral AK REMOVE TONSILS/ADENOIDS,12+ Y/O SPINE SURGERY fusion of [...] Encounters: 03/24/25 144 lb 02/25/25 147 lb 01/02/25 156 lb ROS: Review of Systems Constitutional: [...] 2. Chronic kidney disease, stage 4 (severe) ([facility]) Follow up with nephrology 04/08 Admits to [...] for Next scheduled follow-up. documented in this encounterResearch [facility] Center[facility] [id number] Telephone encounter Note* Telephone Encounter - GISSELLE Sigala - 03/25/2025 2:15 PM EDT Rx for ambien was sent yesterday. [facility] [id number] Miscellaneous Notes* Telephone Encounter - GISSELLE Sigala - 03/25/2025 2:15 PM EDT Rx for ambien was sent yesterday. documented in this encounterResearch Medical Center-Brookside [id number] History of Present illness Narrative* Jack Vogt MD - 03/24/2025 4:30 PM EDT Images from the original note were not included. HPI Follow-up Additional comments: Transferred to [facility] from [facility] 03/13/25 dx: HTN urgency,NSTEMI discharged home03/20/25 med changes made follow up with cardiology 04/02/25 and nephrology 05/06/25 discuss referral Additional comments: Pt would like a referral sent to nephrology in [place] she does not want to go to [place] Last edited by Summer Feliciano LPN on 03/24/2025 4:51 PM. Subjective Patient ID: Marleni Dennis is a 74 y.o. female who presents for Follow-up ([facility]25 dx: HTN urgency,NSTEMI discharged home03/20/25 med changes made follow up with cardiology04/02/25 and nephrology 05/06/25) and discuss referral (Pt would like a referral sent to nephrology in [place] she does not want to go to [place]). Flowsheet Row Documentation from 03/24/2025 in [facility] with Aimee Go MA Hospital Information ED, Hospital or Custodial Facility Discharge? Hospital Patient has been contacted within two business days of discharge Yes Diagnosis Hypertension Discharge Date 03/20/25 Discharged To: Home Setting Discharge Hospital [facility] Engagement Call Start Time 1055 Admission [...] bilateral femoral stent FEMORAL ARTERY STENT Bilateral AK REMOVE TONSILS/ADENOIDS,12+ Y/O SPINE SURGERY fusion of [...] all orders for this visit: 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 - The patient was seen today in follow up of recent hospital stay. All available hospital records were reviewed and discussed with the patient. Hospital discharge meds were reviewed. Any changes are as noted. Type 2 diabetes mellitus with stage 4 chronic kidney disease, without long-term current use of insulin ([facility]) - Ambulatory referral to Nephrology; Future Insomnia due to medical condition - zolpidem (Ambien) 5 MG tablet; Take 1 tablet (5 mg) by mouth as needed at bedtime for sleep Chronic kidney disease, stage 4 (severe) (HCC) Primary osteoarthritis of both knees - traMADol (Ultram) 50 MG tablet; Take 1 tablet (50 mg) by mouth every 8 (eight) hours if needed for severe pain - PT home eval; Future Follow up in about 2 months (around 05/25/2025) for Routine F/U. documented in this encounterResearch Medical Center-Brookside [id number] NotePhysical Therapy Name: Marleni Dennis Date of : 1950 Today's Date: 03/20/25 Pt is unable to be seen for therapy at this time secondary to pt to discharge to home soon. Will check back and complete therapy session as appropriate if discharge does not occur.. Check No Charge Time attempted: 1605[facility]07-03-2025 NoteNephrology Progress Note Patient : Marleni Dennis; 74 y.o. Location: [address] [place] [address] Attending: Erickson Cabrera MD Admit Date: 03/13/2025 Hospital Day: 7 Reason for Consult: CKD IV with uncontrolled hypertension. Subjective: History of present illness: Marleni Dennis is a 74 y.o. female who was transferred from [facility] after presenting with weakness after a fall as well as uncontrolled hypertension. She has pertinent past medical history of hypertension secondary to renal artery stenosis, CKD IV, CAD s/p CABG and PCI with stent placement, obstructive sleep apnea. She presented to [place] ER after a fall after showering as [...] does not regularly follow up with a hip hop dancer. She says she has a water pill [...] Dose Status apixaban (Eliquis) 2.5 mg tablet [id number] TAKE 1 TABLET BY MOUTH TWICE A DAY FOR 90 DAYS Historical Provider, Active aspirin 81 mg EC tablet [id number] Take 1 tablet every day by oral route. Historical Provider, Flag for Review buPROPion (Wellbutrin) 75 mg tablet [id number] Yes Take 75 mg by mouth twice a day. Historical ProviderMD Active carvedilol (Coreg) 12.5 mg tablet [id number] No Take 25 mg by mouth with breakfast and with evening meal. Patient not taking: Reported on 03/13/2025 Historical MD Soham Not Taking Active DULoxetine (Cymbalta) [address] capsule [id number] Take 30 mg by mouth every other day. Weaning off of duloxetine (takes 60 mg daily AND 30 mg every other day_) Historical ProviderMD Active DULoxetine (Cymbalta) [address] capsule [id number] Take 1 tablet by mouth in the morning. Weaning off of duloxetine (takes 60 mg daily AND 30 mg every other day_) Historical ProviderMD Active ezetimibe (Zetia) 10 mg tablet [id number] Take 1 tablet by mouth in the morning. Historical ProviderMD Active fenofibrate (Tricor) 145 mg tablet 1703 (more content not included)...[facility]07-03-2025 NotePt has DC orders. Sent updates to [facility]. Will send AVS when available. Updated MD and pt's RN Shanique. Sent AVS/DC orders to [facility]. They will be able to arrange start of care on Saturday 03/24. 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 ([facility]) Tobacco dependence Stage 4 chronic kidney disease ([facility]) Acute kidney injury superimposed on chronic kidney disease NSTEMI (non-ST elevated myocardial infarction) ([facility]) Abdominal bruit Other abnormalities of gait and mobility Severe protein-calorie malnutrition ([facility]) History of DVT (deep vein thrombosis) CAD s/p CABG Admission Diagnosis: HTN (hypertension) with goal to be determined [I10] Hospital course: 74-year-old female with the above history was admitted to [facility] on 03/13 due to hypertensive emergency. patient initially presented to [facility] after a fall and was found to have systolic blood pressure up to 250 and lab work revealed elevated troponin without immediate concerning ischemic changes on EKG. CT head was negative for acute process. She was transferred to [facility] for NSTEMI. Upon presentation cardiology was consulted [...] During Admission: Cardiology and Nephrology Dear MD Vogt Linda is advised to follow up with you within 1-2 weeks. Items to follow up in ambulatory setting: Follow-up serial BMPs Follow-up with: Nephrology Scheduled appointments: Future Appointments Date Time Provider Department Center 04/02/2025 3:00 PM John Luther CNP [facility] [place] [facility] 05/06/2025 8:30 AM Aydee Chao MD [facility] NEPHRO Comprehensiv 05/06/2025 8:45 AM Aydee Chao MD [facility] NEPHRO Comprehensiv Your medication list ASK your [...] pneumovax-23 [pneumococcal 23-cruz ps vaccine], red dye, ykqlhiv-icx-mzm reductase inhibitors, and varenicline. Disposition: Home-Health Care [facility] (06) Discharge Condition: Stable Code Status: Full [...] fat with locations identified (more content not included)...[facility]07-03-2025 NoteThis report has been cancelled.[facility]07-02-2025 Note-TOMASA on CKD during admission, likely ATN -Cr upward trend, if improved tomorrow then discharge -Daily BMP -Defer fluids to Nephrology - Spoke with nephrology today and agree with doing urinalysis to consider alternative etiologies for the patient's renal dysfunctionLutheran Hospital07-02-2025 NotePhysical Therapy Physical Therapy Treatment Patient [...] II Activity Tolerance Comments Pt reports dizziness residential through ambulation limiting distances and activity tolerance. [...] at end of session. PT Assessment PT Assessment/HEALTH EQUIPMENT SERVICER Summary Pt continues to improve, however, limited by dizziness residential throughout ambulation distance this date. Pt also [...] will perform sit to (more content not included)...[facility]07-02-2025 NoteNephrology Progress Note Patient : Marleni Dennis; 74 y.o. Location: [facility]8/4108-01 Attending: Erickson Cabrera MD Admit Date: 03/13/2025 Hospital Day: 6 Reason for Consult: CKD IV with uncontrolled hypertension. Subjective: History of present illness: Marleni Dennis is a 74 y.o. female who was transferred from [facility] after presenting with weakness after a fall as well as uncontrolled hypertension. She has pertinent past medical history of hypertension secondary to renal artery stenosis, CKD IV, CAD s/p CABG and PCI with stent placement, obstructive sleep apnea. She presented to [place] ER after a fall after showering as [...] does not regularly follow up with a hip hop dancer. She says she has a water pill [...] Dose Status apixaban (Eliquis) 2.5 mg tablet [id number] TAKE 1 TABLET BY MOUTH TWICE A DAY FOR 90 DAYS Historical ProviderMD Active aspirin 81 mg EC tablet [id number] Take 1 tablet every day by oral route. Historical ProviderMD Flag for Review buPROPion (Wellbutrin) 75 mg tablet [id number] Yes Take 75 mg by mouth twice a day. Historical Provider, Active carvedilol (Coreg) 12.5 mg tablet [id number] No Take 25 mg by mouth with breakfast and with evening meal. Patient not taking: Reported on 03/13/2025 Historical ProviderMD Not Taking Active DULoxetine (Cymbalta) [address] capsule [id number] Take 30 mg by mouth every other day. Weaning off of duloxetine (takes 60 mg daily AND 30 mg every other day_) Historical Provider, Active DULoxetine (Cymbalta) [address] capsule [id number] Take 1 tablet by mouth in the morning. Weaning off of duloxetine (takes 60 mg daily AND 30 mg every other day_) Historical Provider, Active ezetimibe (Zetia) 10 mg tablet [id number] Take 1 tablet by mouth in the morning. Historical Provider, Active fenofibrate (Tricor) 145 mg tablet [id number] Take 1 tablet by mouth in the morning. Historical Provider, Active furosemide (Lasix) 40 mg tablet [id number] No if needed. (more content not included)...[facility] Note-RD following, see belowUnTwin City Hospital07-02-2025 Note-MCS SSIUnTwin City Hospital07-02-2025 Note-PT/OT following -Plan for HHC dispoUnTwin City Hospital07-02-2025 Note-NRT -Advised on cessationUnTwin City Hospital07-02-2025 Note-Continue LexaproUnTwin City Hospital07-02-2025 Note-Continue Zetia, fenofibrate, aspirinUnTwin City Hospital07-02-2025 Note-likely 2/2 medication non-adherence -US renal negative for stenosis -aldosterone, renin wnl -Required intermittent cardene -BP management per Nephrology, appreciate recsUniversity of St. [facility]07-02-2025 Note-would benefit repeating duplex scan of the abdomen as an outpatientUnTwin City Hospital07-02-2025 Note-Prior episodes of DVT, on Eliquis. Physical exam showed evidence of LLE swelling. -b/l LE doppler negative for DVTUnTwin City Hospital07-02-2025 Note-Continue Zetia, aspirin -ultrasound showing <50% stenosis R ICA, 50-69% stenosis L ICA -Will need outpatient surveillanceLutheran Hospital07-02-2025 NoteHospital Medicine Daily Progress Note - 03/19/2025 8:02 AM; Room: [address] [place] [address] Admission: 03/13/2025 1:02 AM; Length of stay: 6 days THE HOSPITALIST TEAM PREFERS TO USE [employer] FOR NON-URGENT COMMUNICATION 7AM-7PM. IF I DO NOT RESPOND WITHIN 20 MINUTES OR URGENT MATTERS, PLEASE CALL THROUGH THE [employer]. FROM 7PM-7AM, PLEASE PAGE [phone](COVR). Code Status: Full Code Barriers to Discharge: [...] Hypertensive emergency NSTEMI (non-ST elevated myocardial infarction) ([facility]/HCC) Acute kidney injury superimposed on chronic kidney disease -likely 2/2 medication non-adherence -US renal negative for stenosis -aldosterone, renin wnl -Required intermittent cardene -BP management per Nephrology, appreciate recs Stage 4 chronic kidney disease ([facility]) -TOMASA on CKD during admission, likely ATN [...] mellitus with other diabetic kidney complication (CMS/HCC) -[facility] S[facility] Tobacco dependence -NRT -Advised on cessation Other abnormalities of gait and mobility -PT/OT following -Plan for [facility] dispo Severe protein-calorie malnutrition (CMS/HCC) -RD following, [...] Academy of Nutrition and Dietetics and the [place] [employer] of Enteral and Parenteral Nutrition, meets [...] Results from last 7 (more content not included)...[facility]07-01-2025 NotePhysical Therapy Physical Therapy Treatment Patient [...] Clicks T-Score: 20 Assessment/Plan PT Assessment PT Assessment/HEALTH EQUIPMENT SERVICER Summary: pt amb 115ft RW with SBAof [...] 04/12/25 -- Goal Star (more content not included)...[facility] 03-18-2025 NoteReceived update from [facility] [facility], they will accept. Updated pt. Anticipate Dc tomorrow per hospitalist note.[facility] 03-18-2025 NoteNephrology Progress Note Patient : Marleni Dennis; 74 y.o. Location: [address] [place], [place] [address] Attending: Erickson Cabrera MD Admit Date: 03/13/2025 Hospital Day: 5 Reason for Consult: CKD IV with uncontrolled hypertension. Subjective: History of present illness: Marleni Dennis is a 74 y.o. female who was transferred from [facility] after presenting with weakness after a fall as well as uncontrolled hypertension. She has pertinent past medical history of hypertension secondary to renal artery stenosis, CKD IV, CAD s/p CABG and PCI with stent placement, obstructive sleep apnea. She presented to [place] [facility] after a fall after showering as [...] does not regularly follow up with a hip hop dancer. She says she has a water pill [...] Dose Status apixaban (Eliquis) 2.5 mg tablet [id number] TAKE 1 TABLET BY MOUTH TWICE A DAY FOR 90 DAYS Historical ProviderMD Active aspirin 81 mg EC tablet [id number] Take 1 tablet every day by oral route. Historical ProviderMD Flag for Review buPROPion (Wellbutrin) 75 mg tablet [id number] Yes Take 75 mg by mouth twice a day. Historical ProviderMD Active carvedilol (Coreg) 12.5 mg tablet [id number] No Take 25 mg by mouth with breakfast and with evening meal. Patient not taking: Reported on 03/13/2025 Kimberly Rousseau MD Not Taking Active DULoxetine (Cymbalta) [address] capsule [id number] Take 30 mg by mouth every other day. Weaning off of duloxetine (takes 60 mg daily AND 30 mg every other day_) Historical MD Soham Active DULoxetine (Cymbalta) [address] capsule [id number] Take 1 tablet by mouth in the morning. Weaning off of duloxetine (takes 60 mg daily AND 30 mg every other day_) Historical ProviderMD Active ezetimibe (Zetia) 10 mg tablet [id number] Take 1 tablet by mouth in the morning. Historical ProviderMD Active fenofibrate (Tricor) 145 mg tablet [id number] (more content not included)... [facility]07-01-2025 NotePhysician Clarification Please review the following and provide your response below. Please specify the type of NSTEMI: --NSTEMI --IL Type 2, please document underlying cause --NSTEMI Ruled out --Demand ischemia (no NSTEMI) --Elevated troponins without NSTEMI --Other specified --Clinically unable to determine Additional Notes: Demand ischemia (no NSTEMI) This documentation will become part of the patient's medical record.[facility]07-01-2025 Note-TOMASA on CKD during admission, likely ATN -Cr upward trend, if improved tomorrow then discharge -Daily BMP -Defer fluids to NephrologyUnTwin City Hospital07-01-2025 Note- Continue LexaproUnTwin City Hospital07-01-2025 Note-PT/OT following -Plan for HHC dispoUnTwin City Hospital07-01-2025 Note-would benefit repeating duplex scan of the abdomen as an outpatientUnTwin City Hospital07-01-2025 Note-NRT -Advised on cessationUnTwin City Hospital07-01-2025 Note-RD following, see belowUnTwin City Hospital07-01-2025 Note-MCS SSI [facility]07-01-2025 Note-likely 2/2 medication non-adherence -US renal negative for stenosis -aldosterone, renin wnl -Required intermittent cardene -BP management per Nephrology, appreciate recsUniversakron children's [facility]. [facility]07-01-2025 Note-Prior episodes of DVT, on Eliquis. Physical exam showed evidence of LLE swelling. -b/l LE doppler negative for DVTUnTwin City Hospital07-01-2025 Note-Continue Zetia, aspirin -ultrasound showing <50% stenosis R ICA, 50-69% stenosis L ICA -Will need outpatient surveillanceUnTwin City Hospital07-01-2025 Note-Continue Zetia, fenofibrate, aspirinUnTwin City Hospital 03-18-2025 NoteHospital Medicine Daily Progress Note - 03/18/2025 7:20 AM; Room: [address] [place] [address] Admission: 03/13/2025 1:02 AM; Length of stay: 5 days THE HOSPITALIST TEAM PREFERS TO USE [employer] FOR NON-URGENT COMMUNICATION 7AM-7PM. IF I DO NOT RESPOND WITHIN 20 MINUTES OR URGENT MATTERS, PLEASE CALL THROUGH THE [employer]. FROM 7PM-7AM, PLEASE PAGE [phone](COVR). Code Status: Full Code Barriers to Discharge: [...] Hypertensive emergency NSTEMI (non-ST elevated myocardial infarction) ([facility]) Acute kidney injury superimposed on chronic kidney disease -likely 2/2 medication non-adherence - renal negative for stenosis -aldosterone, renin wnl -Required intermittent cardene -BP management per Nephrology, appreciate recs Stage 4 chronic kidney disease ([facility]) -TOMASA on CKD during admission, likely ATN [...] diabetes mellitus with other diabetic kidney complication ([facility]) -[facility] Tobacco dependence -NRT -Advised on cessation Other abnormalities of gait and mobility -PT/OT following -Plan for [facility] dispo Severe protein-calorie malnutrition (CMS/HCC) -RD following, [...] Academy of Nutrition and Dietetics and the [place] Society of Enteral and Parenteral Nutrition, meets [...] 03/13/25 1748 03/13/25 073 (more content not included)...[facility]07-01-2025 NoteProblem: Safety - Adult Goal: Free from fall injury Outcome: Progressing The patient is Moderately Stable - Low risk of patient condition declining or worsening The patient's goals for the shift include comfort The clinical goals for the shift include VSS, safetyUnTwin City Hospital06-30-2025 NotePhysical Therapy Name: Marleni Dennis Date of : 1950 Today's Date: 03/17/25 Oh no you can't work with me today. Session okay per RN, requests pt's BP be recorded prior to mobility. Pt supine in bed upon arrival, refuses PT this afternoon d/t being too tired. Is, however, agreeable to this report writer obtaining BP: 139/50 mmHg. RN aware. Check No Charge Time attempted: 1425 Giancarlo Calderón, PT, DPTUnTwin City Hospital06-30-2025 Note-TOMASA on CKD during admission, likely ATN -Cr upward trend -Daily BMP -Defer fluids to NephrologyUnTwin City Hospital06-30-2025 Note- likely 2/2 medication non-adherence -US renal negative for stenosis -aldosterone, renin wnl -Required intermittent cardene -BP management per Nephrology, appreciate recsUniversity of St. [facility]06-30-2025 Note-likely 2/2 medication non-adherence -US renal negative for stenosis -aldosterone, renin wnl -Required intermittent cardene -BP management per Nephrology, appreciate recsUniversThe Surgical Hospital [facility]06-30-2025 NoteOccupational Therapy Occupational Therapy Treatment Patient Name: [...] IADLs;Decreased trunk control for functional activities OT Assessment/ADÁN Summary Pt would benefit from continued skilled [...] 4 Eating meals? 4 Total Score OT [facility] 21 OT Goals: Multi-Disciplinary Problems (from Occupational Therapy) Active Problems Problem: Balance Start Date: 03/14/25 Goal Start Date Expected End Date End Date LTG - Patient will maintain stand balance to (more content not included)... [facility] Note-Continue LexaproUnTwin City Hospital06-30-2025 Note-Continue Zetia, aspirin -ultrasound showing <50% stenosis R ICA, 50-69% stenosis L ICA -Will need outpatient surveillanceUnTwin City Hospital06-30-2025 Note-NRT -Advised on cessationUnTwin City Hospital06-30-2025 Note-MCS SSI [facility]06-30-2025 Note-RD following, see below [facility]06-30-[facility] Note-PT/OT following -Plan for C dispoUnTwin City Hospital06-30-2025 Note-would benefit repeating duplex scan of the abdomen as an outpatientUnTwin City Hospital06-30-2025 Note-Prior episodes of DVT, on Eliquis. Physical exam showed evidence of LLE swelling. -b/l LE doppler negative for DVTUnTwin City Hospital06-30-2025 Note-Continue Zetia, fenofibrate, aspirinUnTwin City Hospital 03-17-2025 NoteHospital Medicine Daily Progress Note - 03/17/2025 8:33 AM; Room: [address] [place] [address] Admission: 03/13/2025 1:02 AM; Length of stay: 4 days THE HOSPITALIST TEAM PREFERS TO USE [employer] FOR NON-URGENT COMMUNICATION 7AM-7PM. IF I DO NOT RESPOND WITHIN 20 MINUTES OR URGENT MATTERS, PLEASE CALL THROUGH THE [employer]. FROM 7PM-7AM, PLEASE PAGE [phone](COVR). Code Status: Full Code Barriers to Discharge: [...] Hypertensive emergency NSTEMI (non-ST elevated myocardial infarction) ([facility]/HCC) Acute kidney injury superimposed on chronic kidney disease -likely 2/2 medication non-adherence - renal negative for stenosis -aldosterone, renin wnl -Required intermittent cardene -BP management per Nephrology, avery recs Stage 4 chronic kidney disease (CMS/HCC) [...] diabetes mellitus with other diabetic kidney complication ([facility]) -[facility] Tobacco dependence -NRT -Advised on cessation Other abnormalities of gait and mobility -PT/OT following -Plan for [facility] dispo Severe protein-calorie malnutrition (CMS/HCC) -RD following, [...] Academy of Nutrition and Dietetics and the [place] Society of Enteral and Parenteral Nutrition, meets [...] 03/13/25 0738 SODIUM mmol (more content not included)...[facility] 03-17-2025 NoteNephrology Progress Note Patient : Marleni Dennis; 74 y.o. Location: 4108/4108-01 Attending: Erickson Cabrera MD Admit Date: 03/13/2025 Hospital Day: 4 Reason for Consult: CKD IV with uncontrolled hypertension. Subjective: History of present illness: Marleni Dennis is a 74 y.o. female who was transferred from [facility] after presenting with weakness after a fall as well as uncontrolled hypertension. She has pertinent past medical history of hypertension secondary to renal artery stenosis, CKD IV, CAD s/p CABG and PCI with stent placement, obstructive sleep apnea. She presented to [place] ER after a fall after showering as [...] does not regularly follow up with a hip hop dancer. She says she has a water pill [...] Dose Status apixaban (Eliquis) 2.5 mg tablet [id number] TAKE 1 TABLET BY MOUTH TWICE A DAY FOR 90 DAYS Historical MD Soham Active aspirin 81 mg EC tablet [id number] Take 1 tablet every day by oral route. Historical MD Soham Flag for Review buPROPion (Wellbutrin) 75 mg tablet [id number] Yes Take 75 mg by mouth twice a day. Kimberly Rousseau MD Active carvedilol (Coreg) 12.5 mg tablet [id number] No Take 25 mg by mouth with breakfast and with evening meal. Patient not taking: Reported on 03/13/2025 Kimberly Rousseau MD Not Taking Active DULoxetine (Cymbalta) [address] capsule [id number] Take 30 mg by mouth every other day. Weaning off of duloxetine (takes 60 mg daily AND 30 mg every other day_) Kimberly Rousseau MD Active DULoxetine (Cymbalta) [address] capsule [id number] Take 1 tablet by mouth in the morning. Weaning off of duloxetine (takes 60 mg daily AND 30 mg every other day_) Historical Provider, Active ezetimibe (Zetia) 10 mg tablet [id number] Take (more content not included)... [facility]06-29-2025 Note Attestation signed by Sharee Mckeon [...] Faculty, Division of Nephrology, Department of Medicine, [facility]. Nephrology Progress Note Patient : Marleni Dennis; 74 y.o. Location: 4108/4108-01 Attending: Erickson Cabrera MD Admit Date: 03/13/2025 Hospital Day: 3 Reason for Consult: CKD IV with uncontrolled hypertension. Subjective: History of present illness: Marleni Dennis is a 74 y.o. female who was transferred from [facility] after presenting with weakness after a fall as well as uncontrolled hypertension. She has pertinent past medical history of hypertension secondary to renal artery stenosis, CKD IV, CAD s/p CABG and PCI with stent placement, obstructive sleep apnea. She presented to [place] ER after a fall after showering as [...] does not regularly follow up with a hip hop dancer. She says she has a water pill [...] Dose Status apixaban (Eliquis) 2.5 mg tablet [id number] TAKE 1 TABLET BY MOUTH TWICE A DAY FOR 90 DAYS Historical Provider, Active aspirin 81 mg EC tablet [id number] Take 1 tablet (more content not included)... [facility] Note-likely 2/2 medication non-adherence -US renal negative for stenosis -pending aldosterone, renin -Required intermittent cardene -Continue Coreg 25, hydralazine 100 TID, nifedipine 60 BID -Due to consulting services changes orders without communication to primary, will defer all BP management to Nephrology to avoid inevitable complications from multiple prescribers.[facility]06-29-[facility] Note-TOMASA on CKD during admission, likely ATN -Cr mild increased today -Daily BMP -Defer fluids to NephrologyUnTwin City Hospital06-29-2025 Note- MCS SSIUnTwin City Hospital06-29-2025 Note-Continue Zetia, aspirin -ultrasound showing <50% stenosis R ICA, 50-69% stenosis L ICA -Will need outpatient surveillanceUnTwin City Hospital06-29-2025 Note-RD following, see belowUnTwin City Hospital06-29-2025 Note- PT/OT following -Plan for HHC dispoUnTwin City Hospital06-29-2025 Note-NRT -Advised on cessationUnTwin City Hospital06-29-2025 Note-would benefit repeating duplex scan of the abdomen as an outpatientUnTwin City Hospital06-29-2025 Note-Prior episodes of DVT, on Eliquis. Physical exam showed evidence of LLE swelling. -b/l LE doppler negative for DVTUnTwin City Hospital06-29-2025 Note-Continue LexaproUnTwin City Hospital06-29-2025 Note-Continue Zetia, fenofibrate, aspirinUnTwin City Hospital06-29-2025 Note Hospital Medicine Daily Progress Note - 03/16/2025 7:20 AM; Room: [address] [place] [address] Admission: 03/13/2025 1:02 AM; Length of stay: 3 days THE HOSPITALIST TEAM PREFERS TO USE [employer] FOR NON-URGENT COMMUNICATION 7AM-7PM. IF I DO NOT RESPOND WITHIN 20 MINUTES OR URGENT MATTERS, PLEASE CALL THROUGH THE [employer]. FROM 7PM-7AM, PLEASE PAGE [phone](COVR). Code Status: Full Code Barriers to Discharge: [...] Hypertensive emergency NSTEMI (non-ST elevated myocardial infarction) ([facility]) Acute kidney injury superimposed on chronic kidney disease -likely 2/2 medication non-adherence - renal negative for stenosis -pending aldosterone, renin -Required intermittent cardene -Continue Coreg 25, hydralazine 100 TID, nifedipine 60 BID -Due to consulting services changes orders without communication to primary, will defer all BP management to Nephrology to avoid inevitable complications from multiple prescribers. Stage 4 chronic kidney disease ([facility]) -TOMASA on CKD during admission, likely ATN [...] mellitus with other diabetic kidney complication (CMS/HCC) -[facility] Tobacco dependence -NRT -Advised on cessation Other abnormalities of gait and mobility -PT/OT following -Plan for [facility] dispo Severe protein-calorie malnutrition (CMS/HCC) -RD following, [...] Academy of Nutrition and Dietetics and the [place] Society of Enteral and Parenteral Nutrition, meets [...] Units 03/16/25 0500 03/15/25 (more content not included)...[facility] Note -likely 2/2 medication non-adherence -US renal negative for stenosis -pending aldosterone, renin -Required intermittent cardene -Continue Coreg 25, hydralazine 100 TID, nifedipine 30 BID -Avoid relative hypotension and rapid changes to medications prior to steady state in order to avoid such labile BPUnTwin City Hospital 03-15-2025 Note-would benefit repeating duplex scan of the abdomen as an outpatientUnTwin City Hospital06-28-2025 Note-PT/OT following -Plan for C dispoUnTwin City Hospital06-28-2025 Note-Prior episodes of DVT, on Eliquis. Physical exam showed evidence of LLE swelling. -b/l LE doppler negative for DVTUnTwin City Hospital06-28-2025 Note-TOMASA on CKD during admission, likely ATN -Cr plateau today, hold fluids and monitor daily BMP -If improved tomorrow and BP stable then dischargeUnTwin City Hospital06-28-2025 Note-Continue Zetia, fenofibrate, aspirinUnTwin City Hospital06-28-2025 Note-Continue Zetia, aspirin -ultrasound showing <50% stenosis R ICA, 50-69% stenosis L ICA -Will need outpatient surveillanceUnTwin City Hospital06-28-2025 Note-NRT -Advised on cessationUnTwin City Hospital06-28-2025 Note-Continue LexaproUnTwin City Hospital06-28-2025 Note-MCS SSIUnTwin City Hospital06-28-2025 Note-RD following, see belowUnTwin City Hospital06-28-2025 Note Attestation signed by Sharee Mckeon [...] Faculty, Division of Nephrology, Department of Medicine, [facility]. Nephrology Progress Note Patient : Marleni Dennis; 74 y.o. Location: 4108/4108-01 Attending: Erickson Cabrera MD Admit Date: 03/13/2025 Hospital Day: 2 Reason for Consult: CKD IV with uncontrolled hypertension. Subjective: History of present illness: Marleni Dennis is a 74 y.o. female who was transferred from [facility] after presenting with weakness after a fall as well as uncontrolled hypertension. She has pertinent past medical history of hypertension secondary to renal artery stenosis, CKD IV, CAD s/p CABG and PCI with stent placement, obstructive sleep apnea. She presented to [place] ER after a fall after showering as [...] does not regularly follow up with a hip hop dancer. She says she has a water pill [...] RN (Registered Nurse) (more content not included)... [facility]25 [facility] - 03/15/2025 7:32 AM; Room: [address] [place] [address] Admission: 03/13/2025 1:02 AM; Length of stay: 2 days THE HOSPITALIST TEAM PREFERS TO USE [employer] FOR NON-URGENT COMMUNICATION 7AM-7PM. IF I DO NOT RESPOND WITHIN 20 MINUTES OR URGENT MATTERS, PLEASE CALL THROUGH THE [employer] TR[employer] DRIVER. FROM 7PM-7AM, PLEASE PAGE [phone](COVR). Code Status: Full Code Barriers to Discharge: [...] Hypertensive emergency NSTEMI (non-ST elevated myocardial infarction) ([facility]) Acute kidney injury superimposed on chronic kidney [...] outpatient surveillance Stage 4 chronic kidney disease ([facility]) -TOMASA on CKD during admission, likely ATN [...] diabetes mellitus with other diabetic kidney complication ([facility]) -[facility] Tobacco dependence -NRT -Advised on cessation Other abnormalities of gait and mobility -PT/OT following -Plan for [facility] dispo Severe protein-calorie malnutrition (CMS/HCC) -RD following, [...] Academy of Nutrition and Dietetics and the [place] Society of Enteral and Parenteral Nutrition, meets [...] NIFEdipine XL, 30 mg (more content not included)...[facility]06-27-2025 NoteNephrology Progress Note Patient : Marleni Dennis; 74 y.o. Location: 4108/4108-01 Attending: Erickson Cabrera MD Admit Date: 03/13/2025 Hospital Day: 1 Reason for Consult: CKD IV with uncontrolled hypertension. Subjective: History of present illness: Marleni Dennis is a 74 y.o. female who was transferred from [facility] after presenting with weakness after a fall as well as uncontrolled hypertension. She has pertinent past medical history of hypertension secondary to renal artery stenosis, CKD IV, CAD s/p CABG and PCI with stent placement, obstructive sleep apnea. She presented to [place] ER after a fall after showering as [...] does not regularly follow up with a hip hop dancer. She says she has a water pill [...] Dose Status apixaban (Eliquis) 2.5 mg tablet [id number] TAKE 1 TABLET BY MOUTH TWICE A DAY FOR 90 DAYS Historical Provider, Active aspirin 81 mg EC tablet [id number] Take 1 tablet every day by oral route. Historical Provider, Flag for Review buPROPion (Wellbutrin) 75 mg tablet [id number] Yes Take 75 mg by mouth twice a day. Historical Provider, Active carvedilol (Coreg) 12.5 mg tablet [id number] No Take 25 mg by mouth with breakfast and with evening meal. Patient not taking: Reported on 03/13/2025 Historical Provider, Not Taking Active DULoxetine (Cymbalta) [address] capsule [id number] Take 30 mg by mouth every other day. Weaning off of duloxetine (takes 60 mg daily AND 30 mg every other day_) Historical Provider, Active DULoxetine (Cymbalta) [address] capsule [id number] Take 1 tablet by mouth in the morning. Weaning off of duloxetine (takes 60 mg daily AND 30 m (more content not included)...[facility]27[facility] Note- Prior episodes of DVT, on Eliquis. Physical exam showed evidence of LLE swelling. - Will order LLE doppler for further evaluation.[facility]06-27-2025 NoteMay benefit repeating duplex scan of the abdomen as an outpatientUnTwin City Hospital06-27-2025 NoteAs aboveUnTwin City Hospital06-27-2025 Note- Nephrology consult blood pressure controlled aim for good glycemic control avoid nephrotoxic meds will discontinue NSAIDs which she is taking as well as ARB - Kidney function declining, likely secondary to hypertensive emergency on admission. Cr = 3.12, BUN 46, GFR 15. Continue monitoring levels and volume status. Continued LR infusion.[facility]06-27-[facility]25 Note - history of severe unintentional weight loss due to decreased PO intake. - Today, patient found to have improved PO intake. Continue monitoringUnTwin City Hospital06-27-2025 Note- Nicotine replacement counseling, discussed with patient about having coronary disease peripheral arterial disease which can worsen with tobacco useUnTwin City Hospital06-27-2025 Note- Blood sugar check dietUnTwin City Hospital06-27-2025 Note- With issues with hypertension discontinue Wellbutrin she scored 4 on depression scale we will add LexaproUnTwin City Hospital 03-14-2025 Note- Continue Zetia, aspirin - Ultrasound Carotid artery showed bilateral stenosis >50%[facility]- Cardiology recommend Zetia and fibrate on aspirin [facility]06-27-[facility]25 Note- Suspect secondary hypertension most likely due to renal artery stenosis. Continues to be hypertensive today however, she is asymptomatic. - Renal ultrasound done showed left side stenosis with a diameter of < 9 cm. Right side unremarkable. - Pending aldosterone/renin levels. - Cardiology discontinued Nicardipine drip and recommend continuation of Coreg and Hydralazine.[facility]06-27-2025 NoteFall event PT OT to see patient fall precautionsUnTwin City Hospital06-27-2025 NoteCase was discussed with the Medical [...] Progress Note - 03/14/2025 11:33 AM; Room: [address] [place] [address] Admission: 03/13/2025 1:02 AM; Length of stay: 1 days THE HOSPITALIST TEAM PREFERS TO USE [employer] FOR NON-URGENT COMMUNICATION 7AM-7PM. IF I DO NOT RESPOND WITHIN 20 MINUTES OR URGENT MATTERS, PLEASE CALL THROUGH THE CLASS A REGIONAL TRUCK DRIVER. FROM 7PM-7AM, PLEASE PAGE [phone](COVR). Code Status: Full Code Barriers to Discharge: [...] stenosis >50% Stage 4 chronic kidney disease ([facility]) - Nephrology consult blood pressure controlled aim [...] further evaluation. NSTEMI (non-ST elevated myocardial infarction) ([facility]/HCC) As above Severe protein-calorie malnutrition ([facility]/HCC) - history of severe unintentional weight [...] diabetes mellitus with other diabetic kidney complication ([facility]) - Blood sugar check diet Tobacco dependence - Nicotine replacement counseling, discussed with patient about having coronary disease peripheral arterial disease which can worsen with tobacco use Nutrition Screen (more content not included)...[facility] NoteOccupational Therapy Occupational Therapy Evaluation Patient Name: Marleni Dennis : 1950 Today's Date: 03/14/2025 Time In: 931 Time Out: 949 Marleni Dennis is an 74 y.o. female admitted from [facility] as a direct transfer where she [...] Walker rolling, Rollator, Emergency Alert (sc, gb, [facility] rts) Home Layout: Able to live on main level with bedroom/bathroom, Full bath main level Home Access: Stairs to enter with rails (3) Bathroom Shower/Tub: Walk-in shower Prior Level of Function Prior Function Level of [place]: Independent with ADLs and functional transfers, Independent [...] Assessment: (RUE shld to 90 flex/aarom wfo@ /., represets as a RTC knjury,, distal wfl) [...] Eating meals?: None (Independent) Total Score OT [facility]: 21 Assessment/Plan OT Assessment OT Impairments: Decreased [...] [1] Patient Active Prob (more content not included)...[facility]25 NotePhysical Therapy Physical Therapy Treatment Patient Name: Marleni Dennis : 1950 Today's Date: 03/14/2025 Problem List[1] Start Time: 08 Stop Time: 0925 Time Calculation (min): 30 min PT Therapeutic [...] Clicks T-Score: 18 Assessment/Plan PT Assessment PT Assessment/HEALTH EQUIPMENT SERVICER Summary: The patient requires skilled PT interventiondue [...] chair with chair alarm (more content not included)...[facility]06-26-2025 Note03/13/25 1707 Admission Assessment Questions Verify [...] Not Interested Does the patient have a case management rn assigned to them through their insurance? No [...] and recent fall at home; PT=not able, OT=HHC.[facility]06-26-2025 Note Physical Therapy Physical Therapy Evaluation [...] Summary: 72 y/o female s/p transfer from [facility] after presenting following fall and uncontrolled HTN. [...] Level of Function Prior Function Level of [place]: Independent with ADLs and functional transfers Prior [...] chair): A little H (more content not included)...[facility]-26-2025 NoteThis report has been cancelled.[facility]06-26-2025 NoteThis report has been cancelled.[facility] 03-13-2025 NoteAdult Nutrition Assessment: Name: Marleni [...] is helping On Zofran Appetite: Was poor HEALTH EQUIPMENT SERVICER, 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 Cognition: A&O x4 [...] ideal body weight (50 kg) Calorie needs: 9705-8910 kcals/day based on Equation: 25-30 kcal/kg Protein [...] Severe PCM: Acute Illnes (more content not included)...[facility] NotePhysical Therapy--Cancellation 72 y/o female s/p transfer from [facility] after presenting following fall and uncontrolled HTN. PMH: HTN, renal artery stenosis, DVT/PE, CKD4, CAD s/p CABG, PVD s/t B common iliac stenting, LEE, depression, occluded carotid artery Current Dx: NSTEMI Patient off [facility] at [facility]. Will return to attempt eval. Kari Figueroa PT, MPT [facility] RehabilitationUn[facility] 03-13-2025 NoteSuspect secondary hypertension most likely due to renal artery stenosis continue nitrates add Coreg we will have cardiology see patient as well as nephrology. Discussed with patient but tobacco abstinence low-salt low-fat dietUnTwin City Hospital06-26-2025 NoteMay benefit repeating duplex scan of the abdomen as an outpatientUnTwin City Hospital06-26-2025 NoteFall event PT OT to see patient fall precautionsUnTwin City Hospital 03-13-2025 NoteWith issues with hypertension discontinue Wellbutrin she scored 4 on depression scale we will add LexaproUnTwin City Hospital06-26-2025 Note Nicotine replacement counseling, discussed with patient about having coronary disease peripheral arterial disease which can worsen with tobacco useUnTwin City Hospital06-26-2025 Note) Blood sugar check dietUnTwin City Hospital06-26-2025 NoteContinue Zetia aspirinUnTwin City Hospital06-26-2025 NoteCycle troponin patient has intolerance and side effect with statins currently on Zetia and fibrate on aspirin Cardiology follow-up patientUnTwin City Hospital06-26-2025 NoteAs aboveUnTwin City Hospital06-26-2025 NoteNephrology consult blood pressure controlled aim for good glycemic control avoid nephrotoxic meds will discontinue NSAIDs which she is taking as well as ARB [facility]-26-[facility] NoteHospital Medicine History and Physical 03/13/2025 2:55 AM THE HOSPITALIST TEAM PREFERS TO USE [employer] FOR NON-URGENT COMMUNICATION 7AM-7PM. IF I DO NOT RESPOND WITHIN 20 MINUTES OR URGENT MATTERS, PLEASE CALL THROUGH THE CLASS A REGIONAL TRUCK DRIVER. FROM 7PM-7AM, PLEASE PAGE [phone](COVR). Chief Complaint No chief complaint on file. History of Present Illness Marleni Dennis is an 74 y.o. female admitted from [facility] as a direct transfer where she [...] CPAP. He came to the ER at [facility] because of a fall according to [...] artery disease without angina (more content not included)...[facility] History of Present illness Narrative* Renetta [...] bilateral femoral stent FEMORAL ARTERY STENT Bilateral AK REMOVE TONSILS/ADENOIDS,12+ Y/O SPINE SURGERY fusion of [...] all orders for this visit: Thyroid nodule ([facility]/HCC) - US thyroid; Future Await results of ultrasound. Was scanned and biopsied in the past and was negative for malignancy but now she is losing her hair, she is always tired, and she is losing weight. Type 2 diabetes mellitus with diabetic chronic kidney disease ([facility]) Discussed today the importance of proper diabetic [...] instructions. Chronic kidney disease, stage 4 (severe) ([facility]) This is a chronic medical condition that is stable since last assessment. No changes in treatment are suggested at this time. Hair loss - US thyroid; Future Await results of thyroid ultrasound Other fatigue - US thyroid; Future Await results of thyroid ultrasound Weight loss - US thyroid; Future\ Await results of thyroid ultrasound Depressive disorder ([facility]/HCC) - buPROPion (Wellbutrin) 75 MG tablet; Take [...] No follow-ups on file. documented in this encounterResearch Medical Center-Brookside [id number] History of Present illness Narrative* Jack Vogt [...] mg) before bedtime. 90 tablet 11 HYDROcodone-acetaminophen ([place]) 5-325 MG tablet Take 1 tablet by [...] bilateral femoral stent FEMORAL ARTERY STENT Bilateral AK REMOVE TONSILS/ADENOIDS,12+ Y/O SPINE SURGERY fusion of [...] LDL-C. Andres MOODY et al. NICOLE. 2013;310(19): 2397-0329 (http://education.TidbitDotCo.Routezilla/faq/CBN804) CHOL/HDLC RATIO 01/01/2025 3.7 <5.0 (calc) Final [...] F/U, Perform Labwork (CMP). documented in this encounterResearch Medical Center-Brookside [id number] History of Present illness Narrative* Jack Vogt [...] NEEDED FOR SLEEP 30 tablet 5 HYDROcodone-acetaminophen ([place]) 5-325 MG tablet Take 1 tablet by [...] Do you have a medical power of trade mark attorney?: No Objective : BP 132/62 Pulse [...] a living will and durable power of trade mark attorney for healthcare. We discussed telling españa [...] - Handicap Placard 5 Years - HYDROcodone-acetaminophen ([place]) 5-325 MG tablet; Take 1 tablet by mouth every 6 (six) hours if needed for severe pain Stage 3b chronic kidney disease (HCC) ([facility]/HCC) - Comprehensive metabolic panel; Future - CBC and differential Pulmonary fibrosis, unspecified ([facility]/HCC) Type 2 diabetes mellitus with diabetic peripheral angiopathy without gangrene ([facility]/HCC) - POCT Glycated hemoglobin, total - [...] on December 12, 2024 documented in this encounterResearch Medical Center-Brookside [id number] Hospital Discharge instructions Patient Education 11/18/2024 14:23:43 [...] provider. Document Revised: 01/13/2022 Document Reviewed: 01/13/2022 [employer] Patient Education 2023 Stevie. Follow Up Care 09/30/2024 12:57:18 With:RONALD BEAULIEU, Alfredo Moya, URL Address: [facility] [address], [place] [address]- [phone] When: Unknown [facility] [place] 03-03-2025 NotePatient Education Obstetrics and Gynecology [...] provider. Document Revised: 01/13/2022 Document Reviewed: 01/13/2022 [employer] Patient Education ? 2023 Stevie.[facility] 11-04-2024 Telephone encounter Note* Telephone Encounter - Brianne Portillo - 11/04/2024 9:31 AM EST Pt scheduled NOMS [id number] Miscellaneous Notes* Telephone Encounter - Brianne Portillo - 11/04/2024 9:31 AM EST Pt scheduled * Telephone Encounter - GISSELLE Sigala - 11/04/2024 8:00 AM EST Please help pt get set up for Medicare Wellness visit after 12/12. Cymbalta refill sent. documented in this encounterResearch Medical Center-Brookside [id number] Telephone encounter Note* Telephone Encounter - GISSELLE Sigala - 11/04/2024 8:00 AM EST Please help pt get set up for Medicare Wellness visit after 12/12. Cymbalta refill sent. [facility] Center-Brookside [id number] NoteUT Cardiology [facility] Subjective Marleni Dennis is a 73 y.o. [...] of both knees Pulmonary embolism with infarction ([facility]/HCC) Statin intolerance Type 2 diabetes mellitus with other diabetic kidney complication ([facility]/HCC) Tobacco dependence Stage 4 chronic kidney disease (CMS/HCC) TOMASA (acute kidney injury) ([facility]) Anemia Left knee pain Localized edema Lower [...] therapy. She was admitted previously to the [facility] due to significant lower extremity edema. She underwent testing including arterial duplex ultrasound that suggested possible significant stenosis. She denies symptoms of ischemia in the legs. She uses a cane to ambulate. (more content not included)...[facility] Hospital Discharge instructions Patient Education 03/19/2024 [...] nerve stimulation). ?For women, using a medical librarian to prevent urine leaks. This is a [...] right after experiencing incontinence. General instructions Take weho-ysp-jtknikr and prescription medicines only as told by [...] important. Where to find more information National [place] of Diabetes and Digestive and Kidney Diseases: www.niddk.nih.gov [place] [employer]: www.urologyhealth.org Contact a health care [...] provider. Document Revised: 04/09/2021 Document Reviewed: 04/09/2021 [employer] Patient Education 2022 Stevie. Follow Up Care 10/23/2023 13:29:02 With:RONALD BEAULIEU, Alfredo Moya, URL Address: [facility] [address] , [place] [address]- [phone] When: Unknown Comments:6 mos w/ MRI [facility] 07-02-2024 Hospital Discharge instructions Follow Up Care 03/19/2024 15:04:53 With:Alfredo CARDENAS MD, URL Address: [facility] [address] [place] [address]- [phone] When: Unknown [facility] 07-02-2024 NotePatient Education Urology Urinary Incontinence Urinary [...] stimulation). ? For women, using a medical librarian to prevent urine leaks. This is a [...] that can protect the (more content not included)...[facility]02-05-[facility]24 Hospital Discharge instructions Patient Education 10/23/2023 [...] nerve stimulation). ?For women, using a medical librarian to prevent urine leaks. This is a [...] right after experiencing incontinence. General instructions Take gdwr-csk-hfiozxy and prescription medicines only as told by [...] important. Where to find more information National [place] of Diabetes and Digestive and Kidney Diseases: www.niddk.nih.gov [employer] [employer]: www.urologyhealth.org Contact a health care [...] provider. Document Revised: 04/09/2021 Document Reviewed: 04/09/2021 [employer] Patient Education 2022 Stevie. Follow Up Care 07/28/2023 12:50:01 With:RONALD BEAULIEU, Alfredo Moya, URL Address: [facility] [address] , [place] [address]- [phone] When: Unknown [facility] 01-09-2023 Hospital Discharge instructions Patient Education 09/26/2022 13:45:35 Urinary Tract Infection, Adult, Mpbp-yx-Czxa Urinary Tract Infection, Adult A urinary tract [...] Follow these instructions at home: Medicines Take gvhc-vcy-mzmbwjc and prescription medicines only as told by [...] 02/20/2009 Document Revised: 08/22/2019 Document Reviewed: 03/14/2019 [employer] Patient Education 2020 Stevie. Follow Up Care 03/04/2022 10:43:44 With:RONALD BEAULIEU, Alfredo Moya, URNigel Address: [facility] [address], [place] [address] [phone] When:Within 10 Month(s) Comments:CT AP w/ contrast [facility] 06-17-2022 Hospital Discharge instructions Patient [...] Treatment for this condition includes: Antibiotic medicine. Jdqu-msq-snrlckc medicines to treat discomfort. Drinking enough water [...] Follow these instructions at home: Medicines Take fuyv-zvo-nbmbjix and prescription medicines only as told by [...] 06/14/2006 Document Revised: 08/22/2019 Document Reviewed: 03/14/2019 [employer] Patient Education 2020 Stevie. Follow Up Care 06/28/2021 14:36:35 With:RONALD BEAULIEU, Alfredo Moya, URL Address: [facility] [address] [place] [address]- [phone] When:09/03/2022 [facility] evaluation + Plan note Future Appointments Appointment Date:08/29/2022 01:30:00 PM Scheduled Provider:Alfredo CARDENAS MD Location:[facility] Appointment Type:URO Office Visit [facility] evaluation + Plan note Future Appointments Appointment Date:07/24/2023 01:15:00 PM Scheduled Provider:Alfredo CARDENAS MD Location:[facility] Appointment Type:URO Office Visit [facility] evaluation + Plan note Future Appointments Appointment Date:01/22/2024 11:45:00 AM Scheduled Provider:Alfredo CARDENAS MD Location:[facility] Appointment Type:URO Office Visit [facility] evaluation + Plan note Future Appointments Appointment Date:09/30/2024 01:15:00 PM Scheduled Provider:Alfredo CARDENAS MD Location:[facility] Appointment Type:URO Office Visit [facility] evaluation + Plan note Future Appointments Appointment Date:10/07/2024 12:30:00 PM Scheduled Provider:Alfredo CARDENAS MD Location:[facility] Appointment Type:URO Office Visit [facility] evaluation + Plan note Future Appointments Appointment Date:11/24/2025 01:15:00 PM Scheduled Provider:Alfredo CARDENAS MD Location:[facility] Appointment Type:URO Office Visit [facility] evaluation noteNo assessment information available [facility] Work Phone: evaluation note* Diagnosis Onset Date Resolution Status Bilateral primary osteoarthritis of knee acute Lymphedema acute Nicotine use acute Poor dental hygiene acute Weakness generalized acute [facility] Work Phone: evaluation note* Diagnosis Insomnia [...] claudication Stage 3b chronic kidney disease (HCC) ([facility]/HCC) Pulmonary fibrosis, unspecified ([facility]/HCC) Type 2 diabetes mellitus with diabetic peripheral angiopathy without gangrene ([facility]) Localized edema Edema documented in this encounter [facility] HealthcareEvaluation note* Diagnosis Stage 3b chronic kidney disease (HCC) ([facility]/HCC)- Primary Pulmonary fibrosis, unspecified (CMS/HCC) Localized edema Edema Anxiety Anxiety state, unspecified Depressive disorder ([facility]) Depressive disorder, not elsewhere classified documented in this encounter [facility] HealthcareEvaluation note* Diagnosis Thyroid nodule ([facility]/HCC)- Primary Nontoxic uninodular goiter Type 2 diabetes mellitus with diabetic chronic kidney disease ([facility]/HCC) Chronic kidney disease, stage 4 (severe) ([facility]) Hair loss Unspecified alopecia Other fatigue Weight loss Loss of weight Depressive disorder ([facility]) Depressive disorder, not elsewhere classified Decreased estrogen level documented in this encounter [facility] HealthcareEvaluation note* Diagnosis 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- Primary Type 2 diabetes mellitus with stage 4 chronic kidney disease, without long-term current use of insulin ([facility]) Insomnia due to medical condition Organic insomnia, unspecified Chronic kidney disease, stage 4 (severe) ([facility]) Primary osteoarthritis of both knees documented in this encounter [facility] HealthcareEvaluation note* Diagnosis Benign essential hypertension Essential hypertension, benign Gastroesophageal reflux disease, unspecified whether esophagitis present Insomnia due to medical condition Organic insomnia, unspecified documented in this encounter [facility] HealthcareEvaluation note* Diagnosis Benign essential hypertension- Primary Essential hypertension, benign Chronic kidney disease, stage 4 (severe) ([facility]) Localized edema Edema Right flank pain Abdominal pain, unspecified site Routine lab draw documented in this encounter [facility] HealthcareEvaluation note* Diagnosis Onset Date Resolution Status Admit Date TOMASA (acute kidney injury) acute April 08, 2025 3:58pm Anemia acute April 08 3:58pm Chronic kidney disease, stag e IV (severe) acute April 08, 2025 3:58pm Proteinuria acute April 08 3:58pm [facility] Work Phone: Hospital course Narrative No data available for this section [facility] Hospital Discharge instructions Additional Instructions Custodial Facility to manage care: - Full code - PT/OT eval and treat - Routine vital signs - Avoid NSAIDs - GI office will follow-up pathology for H. pylori and if positive recommend 14 days of quad therapy - otherwise, patient will not need outpatient GI follow-up - Renal function panel in 7 days - [facility] Work Phone: Progress note No data available for this section [facility] reason for referral (narrative)No reason for referral information availableK[facility] Work Phone: Summary Purpose Family History Relationship Condition Age at Onset Recorded Date/T katherine Not Specified Myocardial infarction Unknown father Myocardial infarction Unknown Relationship Condition Age at Onset Recorded Date/T katherine mother Myocardial infarction Unknown father Myocardial infarction Unknown Advance Directives Advance Directive Response Recorded Date/ Time Advance [...] April 08, 2025 3:58 pm Sent by Campaign Developer April 08, 2025 9:1 6pm Reason for [...] section and content) DATE CREATED AUTHOR 07/06/2018 [facility] DATE CREATED AUTHOR AUTHOR'S ORGANIZ ATION 01/26/2023 [facility] DATE CREATED AUTHOR AUTHOR'S ORGANIZ ATION 11/19/2024 [facility] DATE CREATED AUTHOR AUTHOR'S ORGANIZ ATION 03/28/2025 [facility] DATE CREATED AUTHOR AUTHOR'S ORGANIZ ATION 04/07/2025 [facility] DATE CREATED AUTHOR AUTHOR'S ORGANIZ ATION 04/07/2025 [facility] DATE CREATED AUTHOR AUTHOR'S ORGANIZ ATION 05/27/2025 [facility] Care Teams (unrecognized sec tion [...] Courtney ramirez 2023 End: February 05, 2024 Mixologist Relationship Specialty Start Date End Date Jack Vogt MD [address] [place] [address] PCP - General Internal Medicine 01/24/23 Mixologist Relationship Specialty Start Date End Date Jack Vogt MD [address] [place] [address] PCP - General Internal Medicine 01/24/23 Mixologist Relationship Specialty Start Date End Date Jack Vogt MD [address] [place] [address] PCP - General Internal Medicine 01/24/23 Mixologist Relationship Specialty Start Date End Date Jack Vogt MD [address] [place] [address] PCP - General Internal Medicine 01/24/23 Mixologist Relationship Specialty Start Date End Date Jack Vogt MD [address] [place] [address] PCP - General Internal Medicine 01/24/23 Mixologist Relationship Specialty Start Date End Date Jack Vogt MD [address] [place] [address] PCP - General Internal Medicine 01/24/23 Mixologist Relationship Specialty Start Date End Date Jack Vogt MD [address] [place] [address] PCP - General Internal Medicine 01/24/23 Mixologist Relationship Specialty Start Date End Date Jack Vogt MD [address] [place] [address] PCP - General Internal Medicine 01/24/23 Mixologist Relationship Specialty Start Date End Date Jack Vogt MD [address] [place] [address] PCP - General Internal Medicine 01/24/23 Mixologist Relationship Specialty Start Date End Date Jack Vogt MD [address] [place] [address] PCP - General Internal Medicine 01/24/23 Mixologist Relationship Specialty Start Date End Date Jack Vogt MD [address] [facility] [address] [place] [address] PCP - General Internal Medicine 01/24/23 Team [...] Provider Active St art: April 08, 2025 Gaycassie Koehler Jr, DO Other Provider Active S [...] zetia together Reason Comments Follow-up Transferred to [facility] from [facility] 03/13/25 dx: HTN urgency,NSTEMI discharged home03/20/25 med changes made follow up with cardiology 04/02/25 and nephrology 05/06/25 discuss referral Pt would like a refe rral sent to nephrology in [place] she does not want to go to [place] Reason Onset Date Comments Med Refill 03/25/2025 [...] BE BASED ON THE PRIMARY CLINICAL RECORDS. [employer] provides no warranty or guarantee of the accuracy or completeness of information in this document.
[2025-06-09 13:19] LABS: Alanine Aminotransferase 10 U/L (14-59); Albumin Globulin Ratio 0.9; Albumin Level 3.4 g/dL (3.4-5.0); Alkaline Phosphatase 30 U/L (46-116); Anion Gap 14.5; Aspartate Amino Transferase 35 U/L (15-37); Blood Urea Nitrogen 64.0 mg/dL (7.0-18.0); Calcium 6.8 mg/dL (8.5-10.1); Carbon Dioxide 29.5 mmol/L (21.0-32.0); Chloride 102 mmol/L (98-107); Estimated GFR (African America 14 (>=60 mL/min/1.73m^2); Estimated GFR (Non-African Ame 12 (>=60 mL/min/1.73m^2); Globulin 3.8 g/dL; Glucose 99 mg/dL (74-106); Potassium 3.0 mmol/L (3.5-5.1); Sodium 143 mmol/L (136-145); TSH W/ REFLEX FT4 4.130 uIU/mL (0.358-3.740); Total Protein 7.2 g/dL (6.4-8.2)
[2025-06-09 13:32] LABS: NT Pro B Type Natriuretic Pept 18501.0 pg/mL (<=1800.0)
[2025-06-09 13:54] LABS: Hematocrit 29.3 % (36.0-48.0); Hemoglobin 9.7 g/dL (12.0-16.0); Immature Granulocytes Abs Auto 0.01 10^3/uL (0.00-0.03); Immature Granulocytes Pct Auto 0.3 % (0.0-0.5); Lymphocytes Absolute Auto 0.9 10^3/uL (1.2-3.8); Mean Corpuscular HGB Conc 33.1 g/dL (29.9-35.2); Mean Corpuscular Hemoglobin 28.6 pg (26.7-34.0); Mean Corpuscular Volume 86.4 fL (81.0-99.0); Platelet Count 155 10^3/uL (150-450); Red Blood Count 3.39 10^6/uL (4.20-5.40); White Blood Count 2.9 10^3/uL (4.0-11.0)
== END 2025-06-09 12:30 | disposition home or self-care (01) ==
LOC: LAB 12:31
PROVIDERS: PCP Internal Medicine; Visit Provider Internal Medicine
DX: N18.4 Chronic kidney disease, stage 4 (severe) (principal); I50.32 Chronic diastolic (congestive) heart failure
CPT/HCPCS: 36415; 80053; 83880; 84439; 84443; 85025

== ENCOUNTER 2025-07-09 15:26 | Outpatient (REF) | payer MEDICARE, SELFPAY ==
--- OUTSIDE RECORDS SUMMARY | 2025-06-27 12:00 | XMS_ITS | Encounter Summary ---
Author Organization [facility] Address [address] [place] [address] Care Team Providers Care Utility Worker Name Role Phone Jack Vogt MD Primary Care Provider [phone] Chantelle Recio Unavailable [phone] Reason for Visit * LbufbbWbqvcnspY8C for home health Encounter Details DateTypeDepartmentCare Team (Latest Contact Info)Ilpdgvgfxwo45/10/2025 12:00 PM EDTOffice Visit [facility] [address] [place] [id number] 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, SENIOR DATABASE ENGINEER [address] [place] [address] Chronic kidney disease, stage 4 (severe) (HCC) (Primary Dx); Chronic diastolic congestive heart failure (HCC); 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; Benign essential hypertension; Degenerative lumbar spinal stenosis; Radiculopathy of lumbar region; Spinal stenosis, lumbar region with neurogenic claudication; Spondylolisthesis of lumbar region; Need for home health care; Routine lab draw; Advanced care planning/counseling discussion Social History Tobacco UseTypesPacks/DayYears UsedDateSmoking Tobacco: NeverSmokeless Tobacco: NeverAlcohol UseStandard Drinks/WeekCommentsDefer0 (1 standard drink = 0.6 oz pure alcohol)caffeine yes type:coffeePHQ-2AnswerDate RecordedPatient Health Questionnaire-2 Wnxvx953CommentsUnknownSex and Gender InformationValueDate RecordedSex Assigned at BirthNot on fileLegal SexFemale 11/30/2022 6:57 PM EDTGender IdentityNot on fileSexual OrientationNot on file documented as of this encounter Last Filed Vital Signs Vital SignReadingTime TakenCommentsBlood Makdzglf081/6006/27/2025 1:28 PM EDT Hvews830306/27/2025 1:28 PM QUZNtofpiynxxx44.4 ??C (97.5 ??F)06/27/2025 1:28 PM EDTRespiratory Rate--Oxygen Jrunmzssjv06%06/27/2025 1:28 PM EDTInhaled Oxygen Concentration--Weight--Height--Body Mass Index--documented in this encounter Progress Notes * 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 NP - 06/27/2025 12:00 PM EDT Images from the original note were not included. Patient Demographics: Marleni Herrera Date of : 1950 Chief Complaint Patient presents with F for home health HPI Patient is being seen today in her home after not being able to make it into the office for her 06/23/[address] Vogt due to lack of transportation. Pt is being seen for a f2f for [facility]. Patient reports that she had not seen nephrology since prior to her 03/2025 hospitalization, but hasan appt with them on 07/15/25. She also has a cardiology visit scheduled for 07/04/25. She admits that she has not been checking her blood pressure. She does have family check in on her frequently and her jyczaity-uc-spo is filling her pill boxes for her. Pt is still producing urine, but is unable to recall how many times a day. She is taking a water pill as needed, however, reports that cardiology has instructed her not to take daily. She states today she has only urinated once. She has had some problems with incontinence of bowel d/t loose/soft stool. This cycles with having a littler harder stool at times. She does take imodium for the loose stool. Spent time discussing importance of regular bowel movement. Pt reports she is not eating much. Her sister has brought her some foods from [employer] [facility] such as soup, banana bread, quiche, and fruit. Most of her in home meal prep is limited to warming meals up, ormaking simple things such as scrambled eggs, english toast, etc. Pt has lost considerable weight over the past 1-2 years. Denies having any nausea at this time. She is on a waiting list for [employer]als on Wheels. Pt states she tried [employer]als and she did not like them. She has had little education aboutthe importance of a renal diet. Discussed with her today and informed that handout would be sent. Also discussed referral to fire control mechanic. She states she will wait until after her nephrology appt. 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 Denies any recent falls. Primary activity is sitting on the couch, however, she does have a foot pedal information technology director she says she uses once/day. She also gets up to let her dog outside multiple times per day. Pt does shower on her own with the use of a shower, but does not do it if no one is present. She is also able to still dress herself despite complaints of getting weaker. Pt continues to struggle with sleeping. She reports she slept from 4 am to 8 am last night, and then she typically takes an hour nap 1-2 times/day. She is awake most of a 24 hour period. She does have sleeping medication taht helps. Has complaints of significant fatigue. Significant time was spent with patient and her sister discussing her health status, kidney functions, and options for care, such as dialysis, home health, hospice, assisted living facilities, etc. The following portions of the patient's history [...] bilateral femoral stent FEMORAL ARTERY STENT Bilateral GA REMOVE TONSILS/ADENOIDS,12+ Y/O SPINE SURGERY fusion of lower spine TONSILLECTOMY Current Outpatient Medications Medication Instructions apixaban (ELIQUIS) 2.5 mg, Oral, 2 times daily aspirin 81 mg, Daily carvedilol (COREG) 25 mg, Oral, 2 times daily with meals cloNIDine (CATAPRES) 0.1 mg, Oral, 3 times daily doxazosin (CARDURA) 2 mg, Oral, Daily RT escitalopram (LEXAPRO) 5 mg, Oral, Every morning ezetimibe (ZETIA) 10 mg, Oral, Daily fenofibrate (TRICOR) 145 mg, Oral, Daily furosemide (LASIX) 40 mg, 2 times daily hydrALAZINE (APRESOLINE) 100 mg, Oral, 3 times daily isosorbide mononitrate ER (IMDUR) 30 mg, Daily NIFEdipine XL (PROCARDIA XL) 90 mg, Oral, [...] Weights: Wt Readings from Last 3 Encounters: 06/09/25 129 lb 03/24/25 144 lb 02/25/25 147 lb ROS: Review of Systems Constitutional: Positive for chills (always cold - always has a blanket) and fatigue. Negative for appetite change (low for the past year), diaphoresis and fever. States occasionally she'll wake up in the middle of the night soaking wet HENT: Positive for rhinorrhea (d/t sinuses). Negative for nosebleeds, sinus pressure, sinus pain, sneezing and sore throat. Eyes: Negative. Respiratory: Negative for cough, choking, chest tightness, shortness of breath and wheezing. Cardiovascular: Positive for leg swelling. Negative for chest pain and palpitations. Gastrointestinal: Positive for abdominal pain (cramping). Negative for blood in stool, nausea, rectal pain and vomiting. See HPI re: stool Genitourinary: Negative. Musculoskeletal: Positive for arthralgias, back pain, gait problem and myalgias. Sharp pains, like electrical shocks in her legs that make her jump Skin: Negative. Negative for color change, rash and wound. Neurological: Positive for weakness (generalized), numbness (BLE) and headaches (attributes it to sinus). Negative for dizziness, tremors, seizures, syncope and light-headedness. Psychiatric/Behavioral: Negative for self-injury and suicidal ideas. Admits to feeling depressed d/t not being able to do anything at this time. Hematological: Bruises/bleeds easily. Endocrine: Constantly feels cold PHYSICAL EXAM : Vitals: 06/27/25 1328 BP: 148/60 Pulse: 66 Temp: 97.5 ??F SpO2: 98% Physical Exam Vitals and nursing note reviewed. Constitutional: Appearance: Normal appearance. HENT: Head: Normocephalic. Eyes: Extraocular Movements: Extraocular movements intact. Conjunctiva/sclera: Conjunctivae normal. Cardiovascular: Rate and Rhythm: Normal rate and regular rhythm. Heart sounds: Murmur heard. Pulmonary: Effort: Pulmonary effort is normal. No respiratory distress. Breath sounds: Normal breath sounds. No wheezing, rhonchi or rales. Abdominal: General: Bowel sounds are normal. There is no distension. Palpations: Abdomen is soft. Tenderness: There is no abdominal tenderness. Musculoskeletal: Right lower leg: Edema present. Left lower leg: Edema present. Skin: General: Skin is warm and dry. Neurological: General: No focal deficit present. Mental Status: She is alert and oriented to person, place, and time. Gait: Gait abnormal. Psychiatric: Mood and Affect: Mood normal. Behavior: Behavior normal. ASSESSMENT AND PLAN : 1. Chronic kidney disease, stage 4 (severe) (HCC) (Primary) Pt has appt scheduled with nephrology 07/15/25, last seen in hospital 03/2025. Kidney function continues to remain low with most recent BUN 64, Cr 3.8, and GFR 14 as of 06/09/25. Labs have been forwarded to nephrology. Discussed possibility of dialysis, what it means, and what is entails. - Comprehensive metabolic panel; Future - Comprehensive metabolic panel 2. Chronic diastolic congestive heart failure (HCC) This is a chronic medical condition that is stable since last assessment. No changes in treatment are suggested at this time. Cardiology follow up scheduled for 07/04/25 3. 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 No changes in treatment are suggested at this time. Cardiology follow up scheduled for 07/04/25 4. Benign essential hypertension Slightly elevated above 140 systolic today, however, improved over in office BP a couple weeks ago.No changes to medications will be made at this time. Pt has follow up with both cardiology and nephrology this month 5. Degenerative lumbar spinal stenosis 6. Radiculopathy of lumbar region 7. Spinal stenosis, lumbar region with neurogenic claudication 8. Spondylolisthesis of lumbar region 9. Need for home health care Based on the above findings, I certify that the home health services are medically necessary and this patient is confined to the home and needs intermittent assisted care physical therapy occupational therapy. I have initiated the establishment of the plan of care. The patient will be followed by a physician, Dr. Vogt, who will periodically review the plan of care. The findings from this cwmi-jj-wuay encounter have been communicated with the patient's physician who will be assuming this patient's home health plan of care. 10. Routine lab draw Lab draw completed today. Verbal consent obtained. Number of attempts: 1 Gauge needle: 23 Patient tolerated procedure Well tolerated by patient.. Specimen transported to lab. 11. Advanced care planning/counseling discussion Greater than 45 minutes was spent discussing goals of care and advance care planning with pt and her sister. Discussed pt's current level of kidney function and probability of dialysis. She is unsurewhat that means, so spent time discussing what dialysis is, typical frequency, and how it may make her feel. Also spent time discussing a renal diet with her as she states no one has previously discussed. Will have a renal diet handout sent out to her next week. Discussed options if pt chooses not to go forward with dialysis. Discussed home health vs hospice and what goals are for each. Also discussed full code, DNRCC- Arrest, DNRCC. Discussed living will and DPOA for Healthcare and encouraged to complete forms. Pt, at this time, would like to move forward with following up with cardiology andnephrology to further discuss her options, as well as initiating home health. Condition and plan discussed with patient in detail, patient agrees with plan. Most recent laboratory results were reviewed, addressed and were found to be satisfactory other than what has been noted above in the A&P. Patient to return to office: Follow up if symptoms worsen or fail to improve. documented in this encounter Plan of Treatment Not on file documented as of this encounter Goals GoalPatient Goal TypeAssociated ProblemsRecent ProgressPatient-Stated?Author Help patient manage antidepressant medication Care PlanPatient on antidepressant monitoring Renetta Enamorado NP documented as of this encounter Procedures Procedure NamePriorityDate/TimeAssociated DiagnosisCommentsCOMPREHENSIVE METABOLIC QVUBAAisqgeq93/10/2025 3:03 PM EDT Chronic kidney disease, stage 4 (severe) (HCC) documented in this encounter Results * (ABNORMAL) Comprehensive metabolic panel (06/27/2025 3:03 PM EDT)Component ValueRef RangeTest MethodAnalysis TimePerformed AtPathologist SignatureGlucose 124(H)65 - 99 mg/dLQUESTComment: ? Fasting reference interval For someone without known diabetes, a glucose value between 100 and 125 mg/dL is consistent with prediabetes and should be confirmed with a follow-up test. BUN72(H)7 - 25 mg/dLQUESTCreatinine3.66(H)0.60 - 1.00 mg/yJBECFNCJKK04(L)> OR = 60 mL/min/1.20f8RUNRIUDW/CREATININE XXIEN774 - 22 (calc)UMJPHSlmzss446954 - 146 mmol/LQUESTPotassium, Bld3.3(L)3.5 - 5.3 mmol/AEWYMPErxprbur90088 - 110 mmol/L QUESTCarbon Gcanvbz0489 - 32 mmol/LQUESTCalcium6.6(L)8.6 - 10.4 mg/dLQUEST PROTEIN, TOTAL6.0(L)6.1 - 8.1 g/dLQUESTALBUMIN3.73.6 - 5.1 g/dLQUESTGLOBULIN2.3 1.9 - 3.7 g/dL (calc)QUESTALBUMIN/GLOBULIN RATIO1.61.0 - 2.5 (calc)QUEST BILIRUBIN, TOTAL0.70.2 - 1.2 mg/dLQUESTALKALINE QXHNKCLZOHU12(L)37 - 153 U/L XSVXMLFH7485 - 35 U/LQNKISDZS76 - 29 U/LQUESTSpecimen (Source)Anatomical Location / LateralityCollection Method / VolumeCollection TimeReceived TimeBlood Venous blood specimen / Xdlwusd4806/27/2025 3:03 PM EDT1 3:04 PM EDT Narrative Resulting Agency Comment Performing Organization Information ?Site ID: QPT ?Name: [facility] ?Address: [address] [place] [id number] ?Director: Figueroa Jacques MD Authorizing ProviderResult TypeResult StatusDejose HERNANDEZ BLOOD ORDERABLESFinal ResultPerforming OrganizationAddressCity/State/ZIP CodePhone Number QUEST documented in this encounter Visit Diagnoses Diagnosis Chronic kidney disease, stage 4 (severe) (HCC)- Primary Chronic diastolic congestive heart failure (HCC) 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 Benign essential hypertension Essential hypertension, benign Degenerative lumbar spinal stenosis Spinal stenosis of lumbar region Radiculopathy of lumbar region Spinal stenosis, lumbar region with neurogenic claudication Spondylolisthesis of lumbar region Need for home health care Routine lab draw Advanced care planning/counseling discussion documented in this encounter Additional Health Concerns Active ProblemsNoted DateDiagnosed DatePatient on antidepressant monitoring plan 02/25/2025ssessmentNoted TimePHQ-9 Depression Total Score: 15002/25/2025 11:31 AM EDTdocumented as of this encounter Care Teams Team MemberRelationshipSpecialtyStart DateEnd Date Jack Vogt MD [address] [facility] [address] [place] [address] PCP - GeneralInternal Medicine01/24/23 Chantelle Recio, HIEU [address] [place] [address] Social WorkerFamily Medicine06/10/25documented as of this encounter
--- OUTSIDE RECORDS SUMMARY | 2025-07-09 15:37 | XMS_ITS | CCD ---
Author Organization [facility] Care Team Providers Care Inspector Shells Name Role Phone DESIRAE, SHAKA H. Unavailable Unavailable JACK VOGT Unavailable Unavailable DESIRAE, SHAKA H. Unavailable Unavailable DESIRAE, SHAKA H. Unavailable Unavailable JACK VOGT Unavailable Unavailable DESIRAE, SHAKA H. Unavailable Unavailable DESIRAE, SHAKA H. Unavailable Unavailable JACK VOGT Unavailable Unavailable THOMAS Vogt Primary Care Provider [phone] THOMAS Vogt Referring Provider Self, Referral Attending Provider Unavailable JACK VOGT Primary Care Physician [phone] JOHN LUTHER Attending Unavailable JOHN LUTHER Admitting Unavailable JOHN LUTHER Consulting Unavailable DR JACK VOGT Primary Care Unavailable JOHN LUTHER Attending Unavailable JOHN LUTHER Admitting Unavailable DR JACK VOGT Primary Care Unavailable COYLE, DR HENRY Mosley Consulting Unavailable KRISHAN LUTHERINDA Consulting Unavailable JOHN LUTHER Attending Unavailable JOHN LUTHER Admitting Unavailable JOHN LUTHER Consulting Unavailable DR JACK VOGT Primary Care Unavailable JOHN LUTHER Attending Unavailable CHANDAN LUTHERA [...] CARDENAS Admitting Unavailable RYLAN HOPKINS Consulting Unavailable CARLYN DODGE Attending Unavailable KRISHAN DODGEISSA Admitting Unavailable DR JACK VOGT Primary Care Unavailable DR TONYA GARCIA Consulting Unavailable CARLYN DODGE Consulting Unavailable ALFREDO CARDENAS Consulting Unavailable DR JACK VOGT Primary Care Unavailable ALFREDO CARDENAS Attending Unavailable CARDENAS, ALFREDO Admitting Unavailable ELENA, DR HENRY Mosley Consulting Unavailable DAR, CARLYN Attending Unavailable DAR, CARLYN Admitting Unavailable DAR, CARLYN Consulting Unavailable SIN, DR DOSS Primary Care Unavailable ZHOU, JOHN Attending Unavailable ZHOU, JOHN Admitting Unavailable VOGT, DR DOSS Primary Care Unavailable ZIEBER, DR TONYA Moya Consulting Unavailable ZHOU, JOHN Consulting Unavailable NEFJERRICA HERNANDEZ Consulting Unavailable THOMAS Vogt Primary Care Provider [phone] MD Kevin Hamilton II Attending Provider Self, Referral Attending Provider Unavailable Jack Vogt MD Primary Care Provider Maria Luisa Thomson Attending Unavailable Alfredo CARDENAS R Attending Unavailable CARDENAS, Alfredo R Attending Unavailable Orzech, Maria Luisa X Attending Unavailable CARDENAS, Alfredo R Attending Unavailable CURT, ERICKSON T Referring Unavailable CURT, ERICKSON T Referring Unavailable BARBY KAMARA Referring Unavailable HORVIOLET SOLOAR Admitting Unavailable CURT, ERICKSON T Attending Unavailable CURT, ERICKSON T Referring Unavailable CURT, ERICKSON T Referring Unavailable CURT, ERICKSON T Referring Unavailable CARA SANCHEZ Attending Unavailable SACHIN AGUILERA Attending Unavailable CURT, ERICKSON T Referring Unavailable Jack Vogt II Primary Care Provider Sukumar BEAULIEU, Elsy Attending Provider Carolina TELLO, Sohail Willson Emergency Provider [phone] Rajiv Trejo MD Admit Provider Rajiv Trejo MD Attending Provider [phone] Nick Antonio MD Other Provider Kana Vazquez MD Other Provider Judy Espinosa MD Other Provider Estrella Velásquez MD Other Provider Andrew Arrington MD Attending Provider Andrew Arrington MD Other Provider Estefania Yoder APRN Other Provider Keith Koehler DO Other Provider Pilo Harry MD Other Provider [phone] Tony Monterroso Attending Unavailable Samyzahira Darenmontsebandar Valdez Admitting Unavailable Kana Vazquez Consulting Unavailable Jack Vogt Primary Care Unavailable Judy Espinosa Consulting Unavailable Estrella Velásquez Consulting Unavailable Andrew Arrington Consulting Unavailable Estefania Yoder Consulting Unavailable Keith Koehler Jr Consulting UnavailPilo Stephens Consulting Unavaila JACK Stephenson Attending Unavailable JACK VOGT Attending Unavailable RENETTA MONCADA Attending Unavailable JACK VOGT Attending Unavailable JACK VOGT Attending Unavailable Chantelle Shah Unavailable Allergies Allergy ClassificationReported Allergen(s)Allergy TypeDate of OnsetReaction(s) FacilityIodine (and Iodine containting drugs) (2 sources)Iodine; Translations: [Iodine]Drug Pncuwoy10-58-3193Mhscexba of skin (disorder)[facility] (1 source)Pneumococcal vaccineDrug Tgseqeh39-62-8178DvkhlSlxkteksiJ.W. Ruby Memorial Hospitalhellfish (1 source)Shellfish; Translations: [shellfish]Food AllergyUnknown (qualifier value)[facility]vue[facility]icline (1 source)vareniclineDrug Wwgrzrn68-24-8335DgesqleqJtaxvfmvk [facility] (20 sources)Iodine; Translations: [Iodine]Drug Xhazodw80-27-4039Qkybzsnw of skin (disorder)[facility] (5 sources)Pneumococcal vaccine; Translations: [pneumococcal vaccine]Drug Ieymbus03-44-0059LoggcDeltxususTrinity Health System West Campus (20 sources)varenicline; Translations: [VARENICLINE]Drug Zpykdoo21-09-8588 [facility] (6 sources)Mpawvzn-SBU-RaF Reductase Inhibitor; Translations: [Azgwwug-BLN-AxP Reductase Inhibitor]Allergy to -90-1472Gncdqlf [facility] (20 sources)HMG-CoA reductase inhibitor; Translations: [statins]Drug allergy 34-14-6369Wfsedfs (qualifier value), UnknownExec[facility] (6 sources)Shellfish; Translations: [shellfish]Drug allergyUnknown (qualifier value)[facility] [place] (2 sources)black walnut pollen extract; Translations: [CPQXFHB-QQG-BTD REDUCTASE INHIBITORS]Drug Wvqwfmk86-37-1695[facility]St. [facility] (1 source)vareniclineDrug Lnhlmos16-28-5229TckSt. [facility] Hospital [facility] (1 source)Pneumovax 23Drug allergy (disorder)57-54-2647TqmSt. [facility] (20 sources)atorvastatinDrug Unwnrdh22-49-9055[facility] (20 sources)LovastatinAllergy to ngavytpal19-19-8909GYWL [facility] (20 sources)PravastatinDrug Orkxfss27-38-2522XUZX [facility] (20 sources)SimvastatinAllergy to cxqhiihwy99-59-1559JIXR [facility] (20 sources)Pneumococcal Vac PolyvalentDrug Hbssekb03-61-8180JJOA [facility] (20 sources)nickel sulfate; Translations: [NICKEL]Drug Vamhmal15-03-1752 [facility] (20 sources)ShellfishPropensity to adverse kvneejvig22-40-1219WkhaiwicjsuSZWO Healthcare (20 sources)OtherAllergy to ldijeovzr92-36-3962MVZY [facility] (1 source)Contrast media; Translations: [RED DYE]Propensity to adverse reactions to drug (disorder)48-78-9535SyvxbknmjxThe [facility] (1 source)Pneumococcal vaccine; Translations: [PNEUMOCOCCAL 23-CRUZ PS VACCINE] Drug Qizsxrw70-06-2472AuxcauogloThe [facility] of [facility] (1 source)Shellfish; Translations: [SHELLFISH DERIVED]Propensity to adverse reactions to drug (disorder)36-78-8335NnqptcvhylMercer County Community Hospital Repository Medications Current Medications MedicationDrug Class(es)DatesSig (Normalized)Sig (Original)acetaminophen 325 mg / HYDROcodone bitartrate 5 mg oral tablet (11 sources)Opioid AgonistStart: 12-12-2024 End: 38-32-9600himr 1 tablet by mouth every six hours for painHYDROcodone- acetaminophen ([place]) 5-325 MG tablet Indications: Spinal stenosis, lumbar region with neurogenic claudication Take 1 tablet by mouth every 6 (six) hours if needed for severe pain 60 tablet 12/12/2024 01/11/2025 ActiveStart: 91-93-5536nhcmpsvayfmcc-hydrocodone 325 mg-5 mg oral tablet Refill(s) 0 Start Date: 09/26/22 Status: OrderedStart: 03-24-2021 End: 02-53-0789nvui 1 tablet by mouth every six hours as needed for pain Hydrocodone-Acetaminophen 5-325 mg tablet Discontinued 1 TAB PO Q6H as needed for Pain March 24, 2021 12:00am March 27, 2021 11:36amalendronic acid 70 mg oral tablet (1 source)BisphosphonateStart: 36-16-5781cvmupjdcvpm 70 mg Tab Refills(s) 0 Start Date: 09/26/22 Status: Orderedapixaban 2.5 mg oral tablet (20 sources)Factor Xa InhibitorStart: 89-81-9145mkbc 1 tablet by mouth in the morningapixaban (Eliquis) 2.5 MG tablet Indications: Personal history of other venous thrombosis and embolism Take 1 tablet (2.5 mg) by mouth in the morning and 1 tablet (2.5 mg) before bedtime. 200 tablet 3 01/27/2025 ActiveStart: 27-35-9730skal 1 tablet by mouth twice dailyapixaban (Eliquis) 2.5 MG tablet Indications: Personal history of other venous thrombosis and embolism TAKE 1 TABLET BY MOUTH TWICE A DAY 180 tablet 1 12/27/2024 ActiveStart: 19-70-5542zqac 1 tablet by mouth twice dailyapixaban (Eliquis) 2.5 MG tablet Indications: Personal history of other venous thrombosis and embolism TAKE 1 TABLET BY MOUTH TWICE A DAY 180 tablet 1 05/13/2024 ActiveStart: 25-63-1211xyuq 2.5 mg by mouth twice dailyStart: 63-90-9822wnot 1 tablet by mouth twice dailyApixaban (Eliquis) 5 mg tablet Active 5 MG PO Twice daily March 24, 2021 12:00am On Hold: Resume on 03/31/21. Complies with drug therapyaspirin 81 mg delayed release oral tablet (20 sources)Platelet Aggregation Inhibitor, Nonsteroidal Anti-inflammatory Drug Start: 47-73-3079chfh 1 mg by mouth once dailyaspirin 81 mg Oral EC Tab mg tab(s), Oral, Daily, Refills(s) 0 Start Date: 03/04/22 Status: OrderedStart: 83-43-9810xbot 1 tablet by mouth once daily End: 76-20-6845dxmv 1 tablet by mouth once dailyaspirin 81 MG chewable tablet take 1 by Oral route every day Oral 02/25/2025 Discontinued (Other)buPROPion hydrochloride 75 mg oral tablet (7 sources)AminoketoneStart: 02-25-2025 End: 43-84-3864sixb 1 tablet by mouth at bedtimebuPROPion (Wellbutrin) 75 MG tablet Indications: Depressive disorder TAKE 1 TABLET BY MOUTH IN THE MORNING AND BEFORE BEDTIME 180 tablet 1 03/20/2025 04/03/2025 Discontinued (Med list cleanup)carvedilol 25 mg oral tablet (20 sources)alpha-Adrenergic Genoveva, beta-Adrenergic BlockerStart: 03-25-2025 take 1 tablet by mouth in the morningcarvedilol (Coreg) 25 MG tablet Indications: Benign essential hypertension Take 1 tablet (25 mg) bymouth in the morning and 1 tablet (25 mg) in the evening. Take with meals. 180 tablet 3 03/25/2025 ActiveStart: 02-22-2024 End: 51-56-9482otcw 1 tablet by mouth in the morningcarvedilol (Coreg) 25 MG tablet Indications: Benign essential hypertension (CMS/HCC) TAKE 1 TABLET BY MOUTH IN THE MORNING AND 1 TABLET IN THE EVENING. TAKE WITH MEALS. 180 tablet 3 10/22/2024 02/25/2025 Discontinued (Other)Start: 48-09-8159eijmkgyfta 12.5 mg Tab Refills(s) 0 Start Date: 10/23/23 Status: OrderedcloNIDine hydrochloride 0.1 mg oral tablet (20 sources)Central alpha-2 Adrenergic AgonistStart: 03-20-2025 End: 88-62-2191xmiz 1 tablet by mouth in the morning, then take 1 tablet by mouth in the evening, then take 1 tablet by mouth at bedtimecloNIDine (Catapres) 0.1 MG tablet Indications: Benign essential hypertension Take 1 tablet (0.1 mg) by mouth in the morning and 1 tablet (0.1 mg) in the evening and 1 tablet (0.1 mg) before bedtime.270 tablet 3 03/31/2025 ActiveStart: 02-22-2024 End: 62-85-3785khlp 1 tablet by mouth in the morningcloNIDine (Catapres) 0.1 MG tablet Indications: Benign essential hypertension (CMS/HCC) Take 1 tablet (0.1 mg) by mouth in the morning and 1 tablet (0.1 mg) before bedtime. 60 tablet 11 02/22/2024 12/12/2024 Discontinueddoxazosin 2 mg oral tablet (15 sources)alpha-Adrenergic BlockerStart: 03-21-2025 End: 81-55-9736mcid 1 tablet by mouth in the morningdoxazosin (Cardura) 2 MG tablet Indications: Atherosclerosis of [place] coronary artery of [place] heart with stable angina pectoris TAKE 1 TABLET (2 MG) BY MOUTH IN THE MORNING 90 tablet 1 06/23/2025 10/21/2025 ActiveDULoxetine 30 mg Cap-EC (5 sources)Start: 23-07-1687QFApgzssph 30 mg Cap-EC Refills(s) 0 Start Date: 03/04/22 Status: OrderedDULoxetine 60 mg Cap-EC (5 sources)Start: 26-54-1185NPWcmcedbu 60 mg Cap-EC Refills(s) 0 Start Date: 03/04/22 Status: Orderedescitalopram 5 mg oral tablet (15 sources)Serotonin Reuptake InhibitorStart: 03-21-2025 End: 12-80-1757rpkt 1 tablet by mouth once daily in the morningescitalopram (Lexapro) 5 MG tablet Indications: Depressive disorder TAKE 1 TABLET BY MOUTH EVERY DAY IN THE MORNING 90 tablet 1 06/23/2025 Activeezetimibe 10 mg oral tablet (20 sources)Dietary Cholesterol Absorption InhibitorStart: 88-58-7402biii 1 tablet by mouth once dailyezetimibe (Zetia) 10 MG tablet Indications: Stage 3b chronic kidney disease (CMS-HCC) TAKE 1 TABLETBY MOUTH EVERY DAY 90 tablet 3 12/27/2024 Activefenofibrate 145 mg oral tablet (20 sources)Peroxisome Proliferator Receptor alpha AgonistStart: 87-44-7783rhpj 1 tablet by mouth once dailyfenofibrate (Tricor) 145 MG tablet Indications: Mixed hyperlipidemia TAKE 1 TABLET BY MOUTH EVERY DAY 90 tablet 4 10/23/2024 Activefurosemide 40 mg oral tablet (14 sources)Loop DiureticStart: 36-40-7905rmgj 1 tablet by mouth in the morning furosemide (Lasix) 40 MG tablet Take 40 mg by mouth in the morning and 40 mg before bedtime. 04/11/2025 ActiveStart: 03-24-2021 End: 09-65-0653anpt 1 tablet by mouth once daily as neededFurosemide 40 mg tablet Discontinued 40 MG PO Daily as needed for swelling March 24, 2021 12:00am April 08, 2025 4:13pmhydrALAZINE hydrochloride 100 mg oral tablet (20 sources)Arteriolar VasodilatorStart: 03-31-2025 End: 84-03-3295llsi 1 tablet by mouth in the morning, then take 1 tablet by mouth in the evening, then take 1 tablet by mouth at bedtimehydrALAZINE (Apresoline) 100 MG tablet Indications: Benign essential hypertension Take 1 tablet (100 mg) by mouth in the morning and 1 tablet (100 mg) in the evening and 1 tablet (100 mg) before bedtime. 90 tablet 11 03/31/2025 03/31/2026 Active Start: 02-22-2024 End: 87-49-7135show 1 tablet by mouth in the morning, then take 1 tablet by mouth in the evening, then take 1 tablet by mouth at bedtimehydrALAZINE (Apresoline) 100 MG tablet Indications: Benign essential hypertension Take 1 tablet (100 mg) by mouth in the morning and 1 tablet (100 mg) in the evening and 1 tablet (100 mg) before bedtime. 90 tablet 11 02/22/2024 ActiveStart: 08-05-6942cucmETVWHCE 25 mg Tab Refills(s) 0 Start Date: 03/04/22 Status: Ordered 24 hr isosorbide mononitrate 30 mg extended release oral tablet (20 sources)Nitrate VasodilatorStart: 04-04-2025 End: 05-71-7244kbwr 1 tablet by mouth once daily, then take 1 tablet by mouth every twenty-four hoursisosorbide mononitrate ER (Imdur) 30 MG 24 hr tablet Take 30 mg by mouth Daily 04/04/2025 04/04/2026 ActiveStart: 03-24-2021 End: 13-98-2913vmgs 1 tablet by mouth once daily, then take 1 tablet by mouth every twenty-four hoursIsosorbide Mononitrate 60 mg tablet extended release 24 hr Discontinued 60 MG PO Daily March 24, 2021 12:00am April 08, 2025 4:14pm melatonin 3 mg oral tablet (8 sources)Start: 03-20-2025 End: 76-70-9789xgfu 2 tablets by mouth once daily at bedtimeMetoprolol (11 sources)beta-Adrenergic BlockerStart: 42-88-0608Plavagjvhq tartrate 50 mg Tab Refills(s) 0 Start Date: 03/04/22 Status: OrderedStart: 03-24-2021 End: 12-82-2881jytd 1 tablet by mouth twice dailyMetoprolol Tartrate 50 mg tablet Discontinued 50 MG PO Twice daily March 24, 2021 12:00am April 08, 2025 4:14pmminoxidil 2.5 mg oral tablet (1 source)Arteriolar VasodilatorStart: 98-36-5017hjrt 1 tablet by mouth twice daily24 hr mirabegron 50 mg extended release oral tablet (1 source)beta3-Adrenergic AgonistStart: 86-62-9501hsuj 1 tablet by mouth once dailymirabegron 50 mg oral tablet, extended release 50 mg = 1 tab(s), Oral, Daily, # 30 tab(s), Refills(s) 11, Pharmacy: [facility]/pharmacy #[id number], 163, cm, 11/18/24 13:38:00 EST, Height/Length Dosing, 74.1, kg,11/18/24 13:38:00 EST, Weight Dosing Start Date: 11/18/24 Status: OrderedNIFEdipine 90 mg osmotic 24 hr extended release oral tablet (20 sources)Dihydropyridine Calcium Channel BlockerStart: 29-14-5750ejrz 1 tablet by mouth twice dailyStart: 62-09-9264caaf 1 tablet by mouth every twenty- four hours in the morningNIFEdipine XL (Procardia XL) 90 MG 24 hr tablet Indications: Atherosclerosis of [place] coronary artery of [place] heart with stable angina pectoris Take 1 tablet (90 mg) by mouth in the morning and 1 t ablet (90 mg) before bedtime. 180 tablet 3 03/31/2025 ActiveStart: 03-20-2025 take 1 tablet by mouth every twenty-four hours in the morningNIFEdipine XL (Procardia XL) 90 MG 24 hr tablet Take 90 mg by mouth in the morning and 90 mg beforebedtime. 03/20/2025 ActiveStart: 83-35-6144SDHZxfdpql (Eqv-Procardia XL) 90 mg oral tablet, extended release Refills(s) 0 Start Date: 03/04/22 Status: OrderedStart: 03-24-2021 End: 79-21-9293ossp 1 tablet by mouth once dailyNifedipine 90 mg tablet extended release 24hr Discontinued 90 MG PO Daily March 24, 2021 12:00am April 08, 2025 4:19pmnitroglycerin 0.4 mg sublingual tablet (20 sources)Nitrate VasodilatorStart: 03-20-2024 End: 63-67-4006rdivhgluhwywb (Nitrostat) 0.4 MG SL tablet Indications: Atherosclerosis of [place] coronary artery of [place] heart with stable angina pectoris Place 1 tablet (0.4 mg) under the tongue every 5 (five) minutes if needed for chest pain 90 tablet 12 03/20/2024 ActiveStart: 03-04-2022 nitroglycerin 0.4 mg SubL [place] mg spray(s), SubLingual, q5min, Refills(s) 0 Start Date: 03/04/22 Status: Zcyvieu36 hr oxybutynin chloride 10 mg extended release oral tablet (9 sources)Cholinergic Muscarinic AntagonistStart: 10-23-2023 End: 54-26-1282kera 1 tablet by mouth once dailyoxybutynin 10 mg ER Tab 10 mg = 1 tab(s), Oral, Daily, # 90 tab(s), Refills(s) 3, Pharmacy: [facility]/pharmacy #[id number], 163, cm, 10/23/23 12:33:00 EST, Height/Length Dosing, 81.5, kg, 10/23/23 12:33:00 EST, Weight Dosing Start Date: 10/23/23 Status: Orderedpantoprazole 40 mg delayed release oral tablet (20 sources)Proton Pump InhibitorStart: 00-57-9358Niahs: 03-24-2021 End: 79-55-7965qook 1 tablet by mouth once dailypantoprazole (ProtoNix) 40 MG EC tablet Indications: Gastroesophageal reflux disease, unspecified whether esophagitis present Take 1 tablet (40 mg) by mouth Daily 90 tablet 3 03/25/2025 Activemicroencapsulated potassium chloride 10 meq extended release oral tablet (2 sources)Start: 06-09-2025 End: 31-23-9486asmg 1 tablet by mouth in the morningpotassium chloride CR (Klor- Con M10) 10 MEQ ER tablet Indications: Hypokalemia Take 1 tablet (10 mEq) by mouth in the morning and 1 tablet (10 mEq) before bedtime. Do all this for 7 days. Do not crush or chew. 14 tablet 06/09/2025 06/16/2025 Activesennosides, [facility] 8.6 mg oral tablet (8 sources)Start: 03-20-2025 End: 78-79-2612hgaz 1 tablet by mouth once daily at bedtimetraMADol hydrochloride 50 mg oral tablet (11 sources)Opioid AgonistStart: 03-24-2025 End: 01-34-8478gikv 1 tablet by mouth every eight hours for paintraMADol (Ultram) 50 MG tablet Indications: Primary osteoarthritis of both knees Take 1 tablet (50 mg) by mouth every 8 (eight) hours if needed for severe pain 60 tablet 2 03/24/2025 Activezolpidem tartrate 10 mg oral tablet (20 sources)gamma-Aminobutyric Acid-ergic AgonistStart: 04-08-2025 End: 73-81-4094unmx 5 mg by mouth at bedtime as neededStart: 03-24-2025 End: 42-67-3817ixcfrsqz (Ambien) 5 MG tablet Indications: Insomnia due to medical condition Take 1 tablet (5 mg) by mouth as needed at bedtime for sleep 30 tablet 5 03/24/2025 09/20/2025 ActiveStart: 03-24-2025 End: 43-34-0790wcquytlk (Ambien) 10 MG tablet Indications: Insomnia due to medical condition Take 0.5 tablets (5 mg) by mouth as needed at bedtime for sleep 30 tablet 5 03/24/2025 03/24/2025 Discontinued (Reorder)Start: 03-24-2021 End: 23-03-5425anje 1 tablet by mouth at bedtimeZolpidem 10 mg tablet Discontinued 10 MG PO Bedtime March 24, 2021 12:00am April 08, 2025 4:19pm Completed/Discontinued Medications MedicationDrug Class(es)DatesSig (Normalized)Sig (Original)diclofenac sodium 0.01 mg/mg topical gel (7 sources)Nonsteroidal Anti-inflammatory DrugStart: 11-23-2023 End: 79-55-1792Pbwawhllpv Sodium 1 % gel Discontinued 2 GM TOPICAL as directed as needed for knee pain 10 17March 11, 2024 7:39am April 08, 2025 4:11pmStart: 47-51-6885Kfoxstfabg Sodium Active 2 GM TOPICAL as directed 10 17November 23, 2023 1:00amDULoxetine 30 mg delayed release oral capsule (20 sources)Serotonin and Norepinephrine Reuptake InhibitorStart: 12-27-2024 End: 22-30-8987kbqz 1 capsule by mouth once dailyDULoxetine (Cymbalta) [address] capsule Indications: Depressive disorder Take 1 capsule (30 mg) by mouth Daily Take with 60 mg capsule 90 capsule 4 01/02/2025 03/24/2025 DiscontinuedStart: 12-27-2024 End: 39-74-2565aoca 1 capsule by mouth once dailyDULoxetine (Cymbalta) [address] capsule Indications: Anxiety Take 1 capsule (60 mg) by mouth Daily 90 capsule 01/02/2025 03/24/2025 DiscontinuedStart: 07-23-7883kzwe 1 capsule by mouth once dailyDULoxetine (Cymbalta) [address] capsule Indications: Depressive disorder (CMS/HCC) Take 1 capsule (30 mg) by mouth Daily Take with 60 mg capsule 100 capsule 3 12/30/2023 ActiveStart: 10-30-2023 End: 11-40-2164umqp 1 capsule by mouth once dailyDULoxetine (Cymbalta) [address] capsule Indications: Anxiety Take 1 capsule (60 mg) by mouth Daily 90 capsule 11/04/2024 ActiveStart: 49-34-5056QWSonefijp 30 mg Cap-EC Refills(s) 0 Start Date: 03/04/22 Status: OrderedStart: 91-44-5709AHPdwzgaol 60 mg Cap-EC Refills(s) 0 Start Date: 03/04/22 Status: OrderedStart: 03-24-2021 End: 85-14-4941kwgx 3 capsules by mouth at bedtimeDuloxetine 30 mg capsule,delayed release(DR/EC) Discontinued 90 MG PO Bedtime March 24, 2021 12:00am April 08, 2025 4:12pmStart: 03-01-0798fzdg 90 mg by mouth at bedtime Duloxetine Active 90 MG PO Bedtime March 24, 2021 10:33pm12 hr guaiFENesin 600 mg extended release oral tablet (5 sources)Start: 03-27-2021 End: 70-14-4399rtgc 2 tablets by mouth twice daily as needed for congestion, then take 1 tablet by mouth every twelve hours as needed for congestion Guaifenesin (Mucinex) 600 mg Tablet Extended Release 12hr Discontinued 1200 MG PO Twice daily as needed for congestion 0 March 27, 2021 12:00am November 23, 2023 3:26pmmeloxicam 15 mg oral tablet (20 sources)Nonsteroidal Anti-inflammatory DrugStart: 06-10-2024 End: 25-57-8461ndzo 1 tablet by mouth once dailyMeloxicam 15 mg tablet Discontinued 0 .ROUTE .COMPLEX June 10, 2024 7:33am April 08, 2025 4:14pm TAKE 1 TABLET BY MOUTH EVERY DAYStart: 11-23-2023 End: 25-08-6735xnow 1 tablet by mouth once dailyMeloxicam 15 mg tablet Discontinued 15 MG PO daily March 11, 2024 7:39am June 10, 2024 7:34amondansetron 4 mg oral film (2 sources)Serotonin-3 Receptor AntagonistStart: 03-24-2021 End: 85-75-4700yhuw 4 mg by mouth every eight hoursOndansetron Discontinued 4 MG PO Q8H March 24, 2021 10:38pm March 27, 2021 11:37amStart: 03-24-2021 End: 58-11-8807exsr 4 mg by mouth every eight hoursOndansetron Discontinued 4 MG PO Q8H March 24, 2021 12:00am March 27, 2021 11:37amOndansetron 4 mg Film (3 sources)Start: 03-24-2021 End: 22-88-6283slty 4 mg by mouth every eight hours as needed for nausea Ondansetron 4 mg Film Discontinued 4 MG PO Q8H as needed for Nausea March 24, 2021 12:00am March 27, 2021 11:37ampregabalin 75 mg oral capsule (20 sources)Start: 03-24-2021 End: 21-82-1029dkhc 1 capsule by mouth twice dailyPregabalin 75 mg capsule Discontinued 75 MG PO Twice daily March 24, 2021 12:00am April 08, 2025 4:15pm tiZANidine 4 mg oral tablet (20 sources)Central alpha-2 Adrenergic AgonistStart: 03-04-2022 End: 87-83-8978mfkv 1 tablet by mouth twice daily as neededtiZANidine (Zanaflex) 4 MG tablet Indications: Radiculopathy of lumbar region TAKE 1 TABLET BY MOUTH TWICE A DAY NEEDED 180 tablet 3 05/13/2024 03/24/2025 Discontinuedvalsartan 320 mg oral tablet (20 sources)Angiotensin 2 Receptor BlockerStart: 03-24-2021 End: 00-44-4048zohj 1 tablet by mouth once dailyValsartan 320 mg tablet Discontinued 320 MG PO Daily March 24, 2021 12:00am April 08, 2025 4:15pm Problems Active Problems Problem ClassificationProblemDateDocumented DateEpisodic/ChronicAcute and unspecified renal failure (15 sources)Injury of kidney; Translations: [Acute kidney failure, unspecified] Onset: 208806-42-3345KcdqpckwAtxfb myocardial infarction (6 sources)Myocardial -08-1357UggmylwCmflabtyckamzo/social admission (6 sources)Patient encounter status; Translations: [Other specified counseling] 85-27-2341YgzqrudvAmmqwze disorders (3 sources)Anxiety; Translations: [Anxiety disorder, unspecified]11-03-2024 ChronicAortic; peripheral; and visceral artery aneurysms (20 sources)Dissection of abdominal aorta; Translations: [Dissection of abdominal aorta]Onset: 558338-40-7174HkwmbihNkgtjny dysrhythmias (20 sources)Tucker rhythm disorder; Translations: [Other specified cardiac arrhythmias]Onset: 605208-86-0427ClmhfctJsymdio kidney disease (20 sources)Chronic kidney disease stage 3B ; Translations: [Stage 3b chronic kidney disease (HCC)]Onset: 643015-25-5382SgiaijrTlknldl kidney disease (2 sources)Chronic kidney disease; Translations: [Chronic kidney disease, stage 3b]Onset: 54-72-0360Kivhfomkiltw of device; implant or graft (20 sources)Atherosclerosis of coronary artery bypass graft(s) without angina pectoris; Translations: [Arteriosclerosis of autologous vein coronary artery bypass graft]Onset: 613544-02-2601EqxrahcZcuwctbiqk heart failure; nonhypertensive (4 sources)Chronic diastolic heart failure; Translations: [Chronic diastolic (congestive) heart failure]68-60-3077XvfodeqFfesnssr atherosclerosis and other heart disease (20 sources)Atherosclerotic heart disease of [place] coronary artery without angina pectoris; Translations: [Coronary atherosclerosis]Onset: 02-03-2022 ChronicDeficiency and other anemia (20 sources)Anemia due to chronic blood loss; 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 Deficiency and other anemia (10 sources)Anemia; Translations: [Anemia, unspecified]16-01-4029Sfzxuacl Deficiency and other anemia (1 source)Anemia, unspecified; Translations: [Anemia, unspecified]Onset: 18-17-7860EjsfrqpxQjsivqwn mellitus without complication (2 sources)Type 2 diabetes fspofyhl53-05-6968XslzzapEkkgpqapo of lipid metabolism (20 sources)Hyperlipidemia; Translations: [Mixed hyperlipidemia]Onset: 072888-10-6266SofpbbcLzvguxlvpe disorders (20 sources)Gastroesophageal reflux disease; Translations: [Gastro-esophageal reflux disease without esophagitis]Onset: 633075-11-0991PkalegkJachupujy hypertension (20 sources)Hypertensive disorder; Translations: [Essential (primary) hypertension]Onset: 188218-38-8305HdnvnyjCpmyk and electrolyte disorders (7 sources)Hypervolemia; Translations: [Fluid overload, unspecified]Onset: 819198-32-0827VjkmsdcqLqbmylbyvbjkhfcm hemorrhage (12 sources)Lower gastrointestinal hemorrhage; Translations: [Gastrointestinal hemorrhage, unspecified]Onset: 455826-13-4091ScouqwqvBahkasedvrczk symptoms and ill-defined conditions (7 sources)Urge incontinence; Translations: [Urge incontinence of urine]Onset: 78-81-2571DbkksjmCpjvk valve disorders (3 sources)Nonrheumatic aortic (valve) insufficiency; Translations: [NONRHEUMATIC AORTIC INSUFFICIENCY]Onset: 97-71-2537LqkkmxmAcglnkjfrekm with complications and secondary hypertension (13 sources)Hypertensive renal disease; Translations: [Hypertensive chronic kidney disease with stage 1 throughstage 4 chronic kidney disease, or unspecified chronic kidney disease]Onset: 556841-10-8451JlmdkarQdeuses and fatigue (9 sources)Asthenia; Translations: [Weakness]Onset: 527941-97-0215Muduixre Menopausal disorders (20 sources)Other primary ovarian failure; Translations: [Decreased estrogen level]Onset: 26-90-6798GysnenkDmuf disorders (20 sources)Depressive disorder; Translations: [Depressive disorder]Onset: 542171-43-6782CbvcezmTxacbnvqumub breast conditions (20 sources)Fibrocystic disease of breast; Translations: [Diffuse cystic mastopathy of unspecified breast]Onset: 171623-06-4266TqlghcrQqqiitxzf or stenosis of precerebral arteries (20 sources)Occlusion and stenosis of bilateral carotid arteries; Translations: [Carotid artery occlusion]Onset: 031595-10-3136SaghfrmYasemjugnjbqng (20 sources)Primary gonarthrosis, bilateral; Translations: [Bilateral primary osteoarthritis of knee]Onset: 948468-37-7922LisgrtqUblfeywzljfh (20 sources)Osteoporosis; Translations: [Age-related osteoporosis without current pathological fracture]Onset: 779602-26-4444FxptgdiEfnbf acquired deformities (2 sources)Spondylolisthesis, lumbar region; Translations: [Spondylolisthesis, lumbar region]Onset: 35-43-2489EjuehcwaHyegb acquired deformities (1 source)Spondylolisthesis, lumbosacral region; Translations: [Spondylolisthesis, lumbosacral region]Onset: 47-93-6982UdlsoxyoMdtqi acquired deformities (20 sources)Lumbar spondylolisthesis; Translations: [Spondylolisthesis, lumbar region]Onset: 575908-95-4563KlnrofayJihtq aftercare (4 sources)Long-term current use of anticoagulant; Translations: [terminal gauger (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]Onset: 52-48-4652LurqecqsCvdkw and ill-defined heart disease (6 sources)Heart jzyhpiy71-00-5862YtfmzgwOdrgw circulatory disease (20 sources)Stricture of artery; Translations: [Stricture of artery]Onset: 802980-51-5023OiievtuDifzb diseases of kidney and ureters (6 sources)Disorder of kidney and/or ureter; Translations: [Disorder of kidney and ureter, unspecified]Onset: 38-48-3611NonzuclwTzgnn diseases of veins and lymphatics (11 sources)Lymphedema; Translations: [Lymphedema, not elsewhere classified] Onset: 451422-36-3689CbhwfpsNeurb diseases of veins and lymphatics (1 source)Lymphedema, not elsewhere classified; Translations: [Other lymphedema] 86-74-1130VelbdaeGrtds gastrointestinal disorders (20 sources)Irritable bowel syndrome; Translations: [Irritable bowel syndrome without diarrhea]Onset: 373078-56-9652OvfndjnSznaz gastrointestinal disorders (2 sources)Constipation, unspecified; Translations: [Constipation, unspecified] Onset: 95-28-0734BwsahxlfGkgsl gastrointestinal disorders (2 sources)Functional diarrhea; Translations: [Functional diarrhea]06-09-2025 EpisodicOther lower respiratory disease (4 sources)Fibrosis of lung; Translations: [Pulmonary fibrosis, unspecified] 53-92-9663DgrgmyoQdqno non-traumatic joint disorders (4 sources)Pain in left knee; Translations: [Left knee pain]23-20-0701Vmzvtzat Other nutritional; endocrine; and metabolic disorders (20 sources)Obese class I; Translations: [Obesity (BMI 30.0-34.9)]Onset: 439748-85-3865UfyiujyRbhcy nutritional; endocrine; and metabolic disorders (2 sources)Weight decreased; Translations: [Abnormal weight loss]02-25-2025 EpisodicOther skin disorders (2 sources)Loss of hair; Translations: [Nonscarring hair loss, unspecified] 28-94-8574VyjlqduwZzlgrgtkwl and visceral atherosclerosis (20 sources)Peripheral vascular disease, unspecified; Translations: [Peripheral vascular disease, unspecified]Onset: 700812-23-6737JaejhylXihfffxk codes; unclassified (20 sources)Insomnia co-occurrent and due to medical condition; Translations: [Insomnia due to medical condition]Onset: 049684-85-2548DuotcabMitaducw codes; unclassified (3 sources)Localized edema; Translations: [LOCALIZED EDEMA]Onset: 02-03-2022 EpisodicResidual codes; unclassified (4 sources)Poor oral hygiene; Translations: [Other specified personal risk factors, not elsewhere classified]33-21-3444IqzftlexCghyyoba codes; unclassified (1 source)Tobacco use; Translations: [Tobacco use disorder]86-75-3361Vhsunuys Residual codes; unclassified (1 source)Other specified personal risk factors, not elsewhere classified; Translations: [Other specified disorders of the teeth and supporting structures] 85-65-8080KqhznoxfOqnpvgie codes; unclassified (3 sources)Insomnia, unspecified; Translations: [Insomnia, unspecified]Onset: 63-69-0166BeyaglodUeznwgwsbrt; intervertebral disc disorders; other back problems (20 sources)Lumbar spondylosis; Translations: [Spondylosis without myelopathy or radiculopathy, lumbar region]Onset: 963308-80-4832UqtllarJsejxqrwyec; intervertebral disc disorders; other back problems (20 sources)Spinal stenosis of lumbar region; Translations: [Spinal stenosis, lumbar region with neurogenic claudication]Onset: 813935-40-4888Vaqjbokw Spondylosis; intervertebral disc disorders; other back problems (2 sources)Spondylosis; intervertebral disc disorders; other back problems; Translations: [L5-S1 RADICULOPATHY, SPONDYLOSIS]Onset: 67-46-8028Vgswbhumi- related disorders (20 sources)Tobacco dependence syndrome; Translations: [Nicotine dependence, unspecified, uncomplicated]Onset: 411813-56-8916DltkyhkVxwoxfl disorders (20 sources)Thyroid nodule; Translations: [Nontoxic single thyroid nodule]Onset: 034459-29-9901JlawxfwFtfbqgcnqvaq (5 sources)Drug therapy -23-0740Psiwgvwjeeoh (14 sources)Patient on antidepressant monitoring planOnset: 766977-34-8201 Unclassified (2 sources)Follow-up with GI if needed. The office will follow-up pathology for H. pylori.Unclassified (1 source)Follow-up with Nephrology as previously scheduled. Recommend closer follow-up, please call office on Monday to see if can get a closer appointment. Past or Other Problems Problem ClassificationProblemDateDocumented DateEpisodic/ChronicAbdominal pain (20 sources)Generalized abdominal pain; Translations: [Generalized abdominal pain]Onset: 05-05-2023 Resolved: 427229-93-4995VzveyblpWebsvdzt foot deformities (20 sources)Left foot drop; Translations: [Foot drop, left foot]Onset: 244069-23-5622QitwkyccNbvpfbvu reactions (20 sources)Allergy to seafood; Translations: [Allergy to seafood]Onset: 516362-43-8413LgwfxbrxAwrc; stupor; and brain damage (20 sources)Daytime somnolence; Translations: [Somnolence]Onset: 05-05-2023 20-52-5591YpnippfcJwmjiwys atherosclerosis and other heart disease (20 sources)Patient post percutaneous transluminal coronary angioplasty; Translations: [Coronary angioplasty status]Onset: 631285-57-9090Gbylrhym Diabetes mellitus with complications (20 sources)Renal disorder due to type 2 diabetes mellitus; Translations: [Type 2 diabetes mellitus with other diabetic kidney complication]Onset: 10-24-2019 Resolved: 040424-70-9764BontmvvQzvwxzumfuemp symptoms and ill-defined conditions (20 sources)Proteinuria; Translations: [Proteinuria, unspecified]Onset: 254790-23-5406XxzdslxiPnqh disorders (14 sources)Mood disordersOnset: Nausea and vomiting (20 sources)Nausea and vomiting; Translations: [Nausea with vomiting, unspecified]Onset: 467244-32-3944UmexiuwoVtxaldqkvfc chest pain (20 sources)Chest pain; Translations: [Chest pain, unspecified]Onset: 05-23-2018 27-48-0361AisfcdyyBtnag aftercare (1 source)terminal gauger (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; Translations: [JAIL CURRNT USE ANTICOAGULANTS]Onset: 70-91-6059OlubyfwiAkcqo aftercare (20 sources)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; Translations: [terminal gauger (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]Onset: 536736-88-1476ChywgiddUolaw connective tissue disease (3 sources)Pain in leg, unspecified; Translations: [PAIN IN LEG UNSPECIFIED] Onset: 44-47-9683PvuivjyyXzmvq connective tissue disease (1 source)Pain in left leg; Translations: [PAIN IN LEFT LEG]Onset: 02-25-2022 EpisodicOther connective tissue disease (1 source)Pain in right leg; Translations: [PAIN IN RIGHT LEG]Onset: 02-25-2022 EpisodicOther connective tissue disease (20 sources)Fibromyalgia; Translations: [Fibromyalgia]Onset: 05-05-2023 62-06-3972YexiodwlBseiy connective tissue disease (20 sources)Muscle pain; Translations: [Myalgia, unspecified site]Onset: 026059-00-4446AhiwjtwsRbvno connective tissue disease (20 sources)Fibromyositis; Translations: [Fibromyalgia]Onset: 05-23-2018 18-72-2400JomnbwtvZnpef connective tissue disease (20 sources)Neurogenic claudication; Translations: [Other symptoms and signs involving the nervous system]Onset: 063273-16-4570KfeyboovGyjnl connective tissue disease (1 source)Fibromyalgia; Translations: [Fibromyalgia]Onset: 66-55-7083Pgozbbpf Other diseases of kidney and ureters (20 sources)Kidney lesion; Translations: [Disorder of kidney and ureter, unspecified]Onset: 143080-54-9165NaszgruxFiwzs diseases of kidney and ureters (4 sources)Disorder of kidney and ureter, unspecified; Translations: [DISORDER KIDNEY AND URETER UNS]Onset: 46-02-4097BagvtrasEbxeo diseases of veins and lymphatics (20 sources)Peripheral venous insufficiency; Translations: [Venous insufficiency (chronic) (peripheral)]Onset: 987636-07-2522YxhmpdmkMnusv lower respiratory disease (5 sources)Shortness of breath; Translations: [SHORTNESS OF BREATH]Onset: 61-82-6434DkroeavcOvzac screening for suspected conditions (not mental disorders or infectious disease) (20 sources)Cardiovascular stress test abnormal; Translations: [Abnormal result of other cardiovascular function study]Onset: 032059-59-5518NekwerbkFiejk upper respiratory infections (20 sources)Sinusitis; Translations: [Chronic sinusitis, unspecified]Onset: 04-30-2020 Resolved: 305434-18-9447YqptkpyZenoixrdc; thrombophlebitis and thromboembolism (20 sources)History of thromboembolism of vein; Translations: [Personal history of other venous thrombosis and embolism]Onset: 708143-15-5987Necvqqwl Pulmonary heart disease (20 sources)Personal history of pulmonary embolism; Translations: [Infarction of lung due to embolus]Onset: 488573-17-5916VwbuktkhJrknnntr codes; unclassified (20 sources)Nicotine user; Translations: [Tobacco use]Onset: 02-27-2019 46-74-0778JzhegeydExfmrdfq codes; unclassified (20 sources)Other specified health status; Translations: [Other drug allergy] Onset: 637222-87-4204LfmskjnfJbkjipfc codes; unclassified (20 sources)Localized edema; Translations: [Localized edema]Onset: 10-04-2023 48-31-7135Pqjyvens Results Test NameValueInterpretationReference RangeFacilityCOMPREHENSIVE METABOLIC PANEL on 56-20-2642Axnfpnu [Mass/Vol]3.7 g/dLNormal3.6-5.1Quest DiagnosticsComment on above:Performed By: #### [id number] #### [facility] [place] [address] Material Specialist: Figueroa Jacques MDAlbumin/Globulin [Mass ratio]1.6 {ratio}Normal 1.0-2.5Quest DiagnosticsComment on above:Performed By: #### 02863 #### [facility] [place] [address] Material Specialist: Figueroa Jacques MDALP [Catalytic activity/Vol]24 U/VNcv51-956 Quest DiagnosticsComment on above:Performed By: #### [id number] #### [facility] [place] [address] Material Specialist: Figueroa Jacques MDALT [Catalytic activity/Vol]8 U/LNormal6-29 Quest DiagnosticsComment on above:Performed By: #### 62770 #### [facility] [place] [address] Material Specialist: Figueroa Jacques MDAST [Catalytic activity/Vol]32 U/NMhmlaz83-56 Quest DiagnosticsComment on above:Performed By: #### 82535 #### [facility] [place] [address] Material Specialist: Figueroa Jacques MDBilirubin [Mass/Vol]0.7 mg/dLNormal0.2-1.2 Quest DiagnosticsComment on above:Performed By: #### 08685 #### [facility] [place] [address] Material Specialist: Figueroa Jacques MDCalcium [Mass/Vol]6.6 mg/dLLow8.6-10.4Quest DiagnosticsComment on above:Performed By: #### [id number] #### [facility] [place] [address] Material Specialist: Figueroa Jacques MDChloride [Moles/Vol]103 mmol/XIgnodi54-766 Quest DiagnosticsComment on above:Performed By: #### 03199 #### [facility] [address], [address] [place] [address] Material Specialist: Figueroa Jacques MDCO2 [Moles/Vol]24 mmol/ERzwjlt05-66Jdixr DiagnosticsComment on above:Performed By: #### 01167 #### [facility] [address], [address] [place] [address] Material Specialist: Figueroa OHCOAreatinine [Mass/Vol]3.66 mg/dLHigh0.60-1.00 Quest DiagnosticsComment on above:Performed By: #### 55577 #### [facility] [place] [address] Material Specialist: Figueroa Jacques MDGFR/1.73 sq M.predicted among non-blacks MDRD (S/P/Bld) [Vol rate/Area]12 mL/min/{1.73_m2}Low> OR = 60Quest DiagnosticsComment on above:Performed By: #### 24210 #### [facility] [address], [address] [place] [address] Material Specialist: Figueroa Jacques MDGlobulin (S) [Mass/Vol]2.3 g/dLNormal1.9-3.7 Quest DiagnosticsComment on above:Performed By: #### [id number] #### [facility] [place] [address] Material Specialist: Figueroa Jacques MDGlucose [Mass/Vol]124 mg/kSFrxe45-97Kfgfu DiagnosticsComment on above:Result Comment: Fasting reference interval For someone without known diabetes, a glucose value between 100 and 125 mg/dL is consistent with prediabetes and should be confirmed with a follow-up test.Performed By: #### 96626 #### [facility] [place] [address] Material Specialist: Figueroa Jacques MDPotassium [Moles/Vol]3.3 mmol/LLow3.5-5.3Quest DiagnosticsComment on above:Performed By: #### 15078 #### [facility] of [address], [address] [place] [address] Material Specialist: Figueroa Jacques MDProtein [Mass/Vol]6.0 g/dLLow6.1-8.1Quest DiagnosticsComment on above:Performed By: #### 96875 #### [facility] [place] [address] Material Specialist: Figueroa Jacques MDSodium [Moles/Vol]140 mmol/KNmuaky773-107Pmidd DiagnosticsComment on above:Performed By: #### 14254 #### [facility] [place] [address] Material Specialist: Figueroa Jacques MDUrea nitrogen [Mass/Vol]72 mg/dLHigh7-25Quest DiagnosticsComment on above:Performed By: #### 03842 #### [facility] [place] [address] Material Specialist: Figueroa Jacques MDUrea nitrogen/Creatinine [Mass ratio]20 mg/mg Normal6-22Quest DiagnosticsComment on above:Performed By: #### 51665 #### [facility] [place] [address] Material Specialist: Figueroa Jacques MDLaboratory - Chemistry and Chemistry - [facility] 81-24-8319Uwxztny [Mass/Vol]3.7 g/dL3.6 - 5.1 g/dLNOOH Healthcare Albumin/Globulin [Mass ratio]1.6 {ratio}[facility]OM[facility] HealthcareALP [Catalytic activity/Vol]24 U/LLow37 - 153 U/LNOMS HealthcareALT [Catalytic activity/Vol]8 U/L6 - 29 U/LNOMS HealthcareAST [Catalytic activity/Vol]32 U/L10 - 35 U/LNOMS HealthcareBilirubin [Mass/Vol]0.7 mg/dL0.2 - 1.2 mg/dLNOMS HealthcareCalcium [Mass/Vol]6.6 mg/dLLow8.6 - 10.4 mg/dLNOMS HealthcareChloride [Moles/Vol]103 mmol/L98 - 110 mmol/LNOMS HealthcareCO2 [Moles/Vol]24 mmol/L20 - 32 mmol/LNOMS HealthcareCreatinine [Mass/Vol]3.66 mg/dLHigh0.60 - 1.00 mg/dLNOOH Healthcare GFR/1.73 sq M.predicted among non-blacks MDRD (S/P/Bld) [Vol rate/Area]12 mL/min/{1.73_m2}Low> OR = 60 mL/min/1.14b0JLLY HealthcareGlobulin (S) [Mass/Vol] 2.3 g/dLNOOH HealthcareGlucose [Mass/Vol]124 mg/tFSkmk97 - 99 mg/dLNOOH HealthcareComment on above: Fasting reference interval For someone without known diabetes, a glucose value between 100 and 125 mg/dL is consistent with prediabetes and should be confirmed with a follow-up test. Potassium [Moles/Vol]3.3 mmol/LLow3.5 - 5.3 mmol/LNOMS HealthcareProtein [Mass/Vol]6.0 g/dLLow6.1 - 8.1 g/dLNOOH HealthcareSodium [Moles/Vol]140 mmol/L 135 - 146 mmol/LNOMS HealthcareUrea nitrogen [Mass/Vol]72 mg/dLHigh7 - 25 mg/dL NOMS HealthcareUrea nitrogen/Creatinine [Mass ratio]20 mg/mgNOSaint John's Breech Regional Medical CenterNo Panel Informationon 15-64-8701Fvexaoaybfwpoo and review of laboratory results AbnormalLiberty HospitalPerforming Organization Information Site ID: QPT Name: [facility] Address: [address] [place] [address], [address] [place] [id number] Director: Figueroa Jacques MDLiberty HospitalNOOH HealthcareALL PRO BNPon 06-09-2025 NT PRO B TYPE NATRIURETIC [id number] pg/mLCritically highNINF - 1800.0 pg/mLNOMS HealthcareComment on above:RESULTS CALLED TO PEPE FISHER CMP (CMP) (FOR REMOTE [facility] USE)on 08-31-9943Vtapydd [Mass/Vol]3.4 g/dL3.4 - 5.0 g/dLNOOH HealthcareALBUMIN GLOBULIN RATIO0.9NOSaint John's Breech Regional Medical CenterALP [Catalytic activity/Vol]30 U/LLow46 - 116 U/LNOMS HealthcareALT [Catalytic activity/Vol]10 U/LLow14 - 59 U/LNOMS HealthcareAnion gap [Moles/Vol]14.5 mmol/LNOMS HealthcareAST [Catalytic activity/Vol]35 U/L15 - 37 U/LNOMS HealthcareBilirubin [Mass/Vol]0.8 mg/dL0.2 - 1.0 mg/dLNOMS HealthcareCalcium [Mass/Vol]6.8 mg/dLLow8.5 - 10.1 mg/dLNOMS HealthcareChloride [Moles/Vol]102 mmol/L98 - 107 mmol/LNOMS HealthcareCO2 [Moles/Vol]29.5 mmol/L21.0 - 32.0 mmol/LNOMS HealthcareCreatinine [Mass/Vol]3.8 mg/dLHigh0.55 - 1.02 mg/dLNOMS HealthcareGFR/1.73 sq M.predicted CKD-EPI (S/P/Bld) [Vol rate/Area]14Low>=60 mL/min/1.73m 2NOMS HealthcareGlobulin (S) [Mass/Vol]3.8 g/dLNOMS HealthcareGlucose [Mass/Vol]99 mg/dL74 - 106 mg/dLNOMS HealthcarePotassium [Moles/Vol]3 mmol/LLow3.5 - 5.1 mmol/LNOMS HealthcareProtein [Mass/Vol]7.2 g/dL6.4 - 8.2 g/dLNOMS HealthcareSodium [Moles/Vol]143 mmol/L136 - 145 mmol/LNOMS HealthcareTBH EGFR-NON AF WLWCMUHJ47Ott>=60 mL/min/1.73m 2NOMS HealthcareUrea nitrogen [Mass/Vol]64 mg/dLHigh7.0 - 18.0 mg/dLNOMS Healthcare Urea nitrogen/Creatinine [Mass ratio]16.8 mg/mgNOMS HealthcareNo Panel Informationon 27-60-0699Yftibbamdftfiq and review of laboratory resultsAbnormal NOMS HealthcareCLINISYNCNOMS HealthcareTSH W/REFLEX T4on 88-58-3430YZR Qn4.13 m[IU]/LHighNOMS HealthcareBasic Metabolic Panelon 57-30-5027Huchb gap [Moles/Vol]10.5 mmol/LNormal6.0-15.0The [facility]lands Physician GroupComment on above:Performed By: #### BMP, CBC ####[address] [address] USACalcium [Mass/Vol]8.5 mg/dLLow8.6-10.3The [facility] Physician GroupComment on above:Performed By: #### BMP, CBC ####[address] [address] USAChloride [Moles/Vol] 103 mmol/COffqqz42-164Ysl [facility] Physician GroupComment on above:Performed By: #### BMP, CBC ####[address] [address] [place]ACO2 [Moles/Vol]27.0 mmol/HMvsawk64.0-31.0The [facility] Physician GroupComment on above:Performed By: #### BMP, CBC ####[address] [address] USACreatinine [Mass/Vol]4.15 mg/dLHigh 0.60-1.20The [facility] Physician GroupComment on above:Performed By: #### BMP, CBC ####[address] [address] [place] Creatinine Clr Calc Dopxidin06.14NormMartin Memorial Health Systems Physician GroupComment on above:Result Comment: PERFORMED BY: [facility] [address] [facility] [address]ERVirginiaGARRE[facility] [place] [id number] PATHOLOGIST BURNT L[employer] DRAWER ELIZABETH MOREL M.D.Performed By: #### BMP, CBC ####[address] [address] USAGFR/1.73 sq M.predicted MDRD (S/P/Bld) [Vol rate/Area]10.650 mL/min/{1.73_m2}NormalThe [facility] Comment on above:Performed By: #### BMP, CBC ####[address] [address] USAGlucose [Mass/Vol]136 mg/aWRqdc25-687 The [facility] Physician GroupComment on above:Result Comment: Random Glucose Reference Range is dependent on time and content of last meal. Glucose of more than 200 mg/dL in a nonstressed, ambulatory subject supports the diagnosis of Diabetes Mellitus. ADA recommended reference rangePerformed By: #### BMP, CBC ####[place] [address] USAPotassium [Moles/Vol] 3.5 mmol/LNormal3.5-5.1The [facility] Physician GroupComment on above:Performed By: #### BMP, CBC ####[place] [address] USASodium [Moles/Vol]137 mmol/PNkjovv195-324Ytf [facility] Physician GroupComment on above:Performed By: #### BMP, CBC ####[place] [address] USAUrea nitrogen [Mass/Vol]61 mg/dLHigh 7-25The [facility] Physician GroupComment on above:Performed By: #### BMP, CBC ####[address] Complete Blood Count Auto Diffon 02-60-7644Qplyolugb (Bld) [#/Vol]0.0 10*3/uL Normal0.0-0.2The [facility] Physician [facility] HospitalComment on above:Result Comment: PERFORMED BY: [address] [place] [address] PATHOLOGIST BUR[employer] DRAWER ELIZABETH MOREL M.D.Performed By: #### BMP, CBC ####[place] [address] USABasophils/100 WBC (Bld)0.7 %Normal.The [facility] Physician GroupComment on above:Performed By: #### BMP, CBC ####[address] Eosinophils (Bld) [#/Vol]0.2 10*3/uLNormal0.0-0.45The [facility] Comment on above:Performed By: #### BMP, CBC ####[place] [address] USAEosinophils/100 WBC (Bld)3.3 %Normal. The [facility] Physician GroupComment on above:Performed By: #### BMP, CBC ####[address] Erythrocyte distribution width (RBC) [Ratio]16.4 %High11.9-15.3The [facility] Physician GroupComment on above:Performed By: #### BMP, CBC ####[place] [address] USAHematocrit (Bld) [Volume fraction]27.2 %Low34.0-46.4The [facility] Physician GroupComment on above:Performed By: #### BMP, CBC ####[place] [address] USAHemoglobin (Bld) [Mass/Vol]9.0 g/dLLow11.8-15.4The [facility] Physician GroupComment on above:Performed By: #### BMP, CBC ####[place] [address] [place] Lymphocytes (Bld) [#/Vol]0.8 10*3/uLLow1.00-4.8The [facility] Comment on above:Performed By: #### BMP, CBC ####[place] [address] USALymphocytes/100 WBC (Bld)14.9 %Normal. The [facility] Physician GroupComment on above:Performed By: #### BMP, CBC ####[place] [address] USAMCH (RBC) [Entitic mass]29.1 kkZrgmvs36.7-34.3The [facility] Physician GroupComment on above:Performed By: #### BMP, CBC ####[place] [address] USAMCV (RBC) [Entitic vol]88.3 oNPazqnl78-463Enp [facility]ician GroupComment on above:Performed By: #### BMP, CBC ####[place] [id number] USAMean Corpuscular HGB Conc33.0 g/gEEgahuj87.0-35.0The [facility] Physician GroupComment on above:Performed By: #### BMP, CBC ####[place] [address] USAMonocytes (Bld) [#/Vol]0.5 10*3/uLNormal 0.0-0.8The [facility] Physician GroupComment on above:Performed By: #### BMP, CBC ####[place] [address] [place] Monocytes/100 WBC (Bld)9.1 %Normal.The [facility] Physician GroupComment on above:Performed By: #### BMP, CBC ####[place] [address] USANeutrophils (Bld) [#/Vol]4.0 10*3/uLNormal1.8-7.7The [facility] Physician GroupComment on above:Performed By: #### BMP, CBC ####[place] [id number] [place] Neutrophils/100 WBC (Bld)72.0 %Normal.The [facility] GroupComment on above:Performed By: #### BMP, CBC ####[place] [address] USANRBC%0.1 /100{WBC}Normal0-0.5The [facility] Physician GroupComment on above:Performed By: #### BMP, CBC ####[place] [id number] USAPlatelet mean volume (Bld) [Entitic vol]9.3 fLNormal6.3-10.7The [facility] GroupComment on above: Performed By: #### BMP, CBC ####[place] [address] USAPlatelets (Bld) [#/Vol]176 10*3/hGRqtnlm030-940Wki [facility] GroupComment on above:Performed By: #### BMP, CBC ####[facility] [address] [place] [address] USARBC (Bld) [#/Vol]3.09 10*6/uLLow3.60-5.00The [facility]ician GroupComment on above:Performed By: #### BMP, CBC ####[place] [address] USAWBC (Bld) [#/Vol]5.6 10*3/uLNormal3.8-11.6The [facility]ician GroupComment on above:Performed By: #### BMP, CBC ####[place] [address] USAWhite Blood Count5.6 [CFU]/mLNormal3.8-11.6The [facility] GroupComment on above:Performed By: #### BMP, CBC ####[place] [address] USABasic Metabolic Panelon 49-63-4318Nsumo gap [Moles/Vol]12.2 mmol/LNormal6.0-15.0The [facility] Physician GroupComment on above:Performed By: #### BMP #### [facility] [address] [place] [address] USACalcium [Mass/Vol]8.4 mg/dLLow8.6-10.3The [facility]ician GroupComment on above:Performed By: #### BMP #### [facility] [address] [place] [address] USAChloride [Moles/Vol]106 mmol/WRaqiaf75-679Kxx [facility] GroupComment on above:Performed By: #### BMP #### [facility] [address] [place] [address] USACO2 [Moles/Vol]25.2 mmol/HRfcexw22.0-31.0The [facility]ician GroupComment on above:Performed By: #### BMP #### [facility] [address] [place] [address] USACreatinine [Mass/Vol]3.69 mg/dLHigh0.60-1.20The [facility]ician GroupComment on above:Performed By: #### BMP #### [place] [address] USACreatinine Clr Calc Lfxfpfhm64.26NormalThGritman Medical Center Physician GroupComment on above:Result Comment: PERFORMED BY: [place] [address] PATHOLOGIST [employer] ELIZABETH MOREL M.D.Performed By: #### BMP #### [place] [address] USAGFR/1.73 sq M.predicted MDRD (S/P/Bld) [Vol rate/Area] 12.263 mL/min/{1.73_m2}NormalThe [facility] Physician GroupComment on above: Performed By: #### BMP #### [place] [address] USAGlucose [Mass/Vol]79 mg/pPFgyfad31-405Jlv [facility] GroupComment on above:Result Comment: Random Glucose Reference Range is dependent on time and content of last meal. Glucose of more than 200 mg/dL in a nonstressed, ambulatory subject supports the diagnosis of Diabetes Mellitus. ADA recommended reference rangePerformed By: #### BMP #### [place] [address] USAPotassium [Moles/Vol]3.4 mmol/LLow3.5-5.1The [facility] Physician GroupComment on above:Performed By: #### BMP #### [place] [address] USASodium [Moles/Vol]140 mmol/YSzmjcw488-016Wdm [facility] GroupComment on above:Performed By: #### BMP #### [place] [address] USAUrea nitrogen [Mass/Vol]62 mg/dLHigh7-25The [facility] Physician GroupComment on above:Performed By: #### BMP #### [place] [address] USACreatinine, Urine (Random)on 45-95-8698Rcrjlkngzv, Urine (Random)61.00 mg/dLNormalThe [facility] HospitalComment on above:Result Comment: No reference range establishedPerformed By: #### JAUN, URTP ####[place] [id number] [facility] Pathology Request for Lab Corpon [id number] Request for Lab CorpNormal The [facility] HospitalComment on above:Order Comment: GI SPECIMENResult Comment: See report. Scanned copy available in EMR. PERFORMED BY: [place] [address] PATHOLOGIST [employer] ELIZABETH MOREL M.D.Performed By: #### PATH TO [facility] ####[place] [id number] USATotal Protein, Urineon 60-99-8760Oaquoin (U) [Mass/Vol]67 mg/dLHigh0-9The [facility] Comment on above:Result Comment: PERFORMED BY: [place] [address] PATHOLOGIST [employer] ELIZABETH MOREL M.D.Performed By: #### JAUN, URTP ####[place] [id number] USAComplete Blood Count Auto Diff on 89-34-7912Evuyzmzhz (Bld) [#/Vol]0.0 10*3/uLNormal0.0-0.2The [facility] Of HarmarvilleComment on above:Result Comment: PERFORMED BY: [place] [id number] PATHOLOGIST [employer] ELIZABETH MOREL M.D.Performed By: #### MG, PT, CMP, PHOS, CBC, PTT ####[place] [id number] [facility] Basophils/100 WBC (Bld)1.0 %Normal.The [facility] Of HarmarvilleComment on above:Performed By: #### MG, PT, CMP, PHOS, CBC, PTT ####[address] [place] [address] USAEosinophils (Bld) [#/Vol]0.2 10*3/uLNormal0.0-0.45The [facility] GroupComment on above:Performed By: #### MG, PT, CMP, PHOS, CBC, PTT ####[place] [address] USAEosinophils/100 WBC (Bld)4.2 %Normal.The [facility] Physician GroupComment on above:Performed By: #### MG, PT, CMP, PHOS, CBC, PTT ####[address] Erythrocyte distribution width (RBC) [Ratio]16.3 %High11.9-15.3The [facility] GroupComment on above:Performed By: #### MG, PT, CMP, PHOS, CBC, PTT ####[address] Hematocrit (Bld) [Volume fraction]24.8 %Low34.0-46.4The [facility] GroupComment on above:Performed By: #### MG, PT, CMP, PHOS, CBC, PTT ####[address] Hemoglobin (Bld) [Mass/Vol]8.4 g/dLLow11.8-15.4The [facility] Comment on above:Performed By: #### MG, PT, CMP, PHOS, CBC, PTT ####[place] [address] USALymphocytes (Bld) [#/Vol]1.2 10*3/uLNormal1.00-4.8The [facility] GroupComment on above: Performed By: #### MG, PT, CMP, PHOS, CBC, PTT ####[place] [address] USALymphocytes/100 WBC (Bld)29.3 %Normal. The [facility] Physician GroupComment on above:Performed By: #### MG, PT, CMP, PHOS, CBC, PTT ####[address] (RBC) [Entitic mass]29.7 cpCkxjcl09.7-34.3The [facility] GroupComment on above:Performed By: #### MG, PT, CMP, PHOS, CBC, PTT ####[address] (RBC) [Entitic vol]88.2 rMRsufke68-011Xwd [facility] GroupComment on above:Performed By: #### MG, PT, CMP, PHOS, CBC, PTT ####[place] [address] USAMean Corpuscular HGB Conc33.7 g/lIJnptyk57.0-35.0The [facility] GroupComment on above:Performed By: #### MG, PT, CMP, PHOS, CBC, PTT ####[place] [address] USAMonocytes (Bld) [#/Vol]0.5 10*3/uLNormal0.0-0.8The [facility] GroupComment on above:Performed By: #### MG, PT, CMP, PHOS, CBC, PTT ####[place] [address] USAMonocytes/100 WBC (Bld)12.9 %Normal.The [facility] GroupComment on above:Performed By: #### MG, PT, CMP, PHOS, CBC, PTT ####[place] [address] USANeutrophils (Bld) [#/Vol]2.1 10*3/uLNormal1.8-7.7The [facility] GroupComment on above:Performed By: #### MG, PT, CMP, PHOS, CBC, PTT ####[place] [address] USANeutrophils/100 WBC (Bld)52.6 %Normal.The [facility] GroupComment on above:Performed By: #### MG, PT, CMP, PHOS, CBC, PTT ####[place] [address] USANRBC% 0.1 /100{WBC}Normal0-0.5The [facility] GroupComment on above:Performed By: #### MG, PT, CMP, PHOS, CBC, PTT ####[place] [address] USAPlatelet mean volume (Bld) [Entitic vol]9.2 fL Normal6.3-10.7The [facility] GroupComment on above:Performed By: #### MG, PT, CMP, PHOS, CBC, PTT ####[place] [address] USAPlatelets (Bld) [#/Vol]188 10*3/sLNxzdrg893-672Sbx [facility] GroupComment on above:Performed By: #### MG, PT, CMP, PHOS, CBC, PTT ####[place] [address] USARBC (Bld) [#/Vol]2.81 10*6/uLLow3.60-5.00The [facility] GroupComment on above:Performed By: #### MG, PT, CMP, PHOS, CBC, PTT ####[place] [address] USAWBC (Bld) [#/Vol]4.1 10*3/uL Normal3.8-11.6The [facility] GroupComment on above:Performed By: #### MG, PT, CMP, PHOS, CBC, PTT ####[place] [address] USAWhite Blood Count4.1 [CFU]/mLNormal3.8-11.6The [facility] GroupComment on above:Performed By: #### MG, PT, CMP, PHOS, CBC, PTT ####[place] [address] USAComprehensive Metabolic Panelon 07-46-3815Qbkzhhd [Mass/Vol]3.3 g/dLLow 3.5-5.7The [facility] GroupComment on above:Performed By: #### MG, PT, CMP, PHOS, CBC, PTT ####[place] [address] [place] [address] USAAlbumin/Globulin [Mass ratio]1.4 {ratio}NormalThe [facility] GroupComment on above:Performed By: #### MG, PT, CMP, PHOS, CBC, PTT ####[address] [address] USAALP [Catalytic activity/Vol]29 U/OCjn25-010Bzd [facility] GroupComment on above:Performed By: #### MG, PT, CMP, PHOS, CBC, PTT ####[address] [address] USAALT [Catalytic activity/Vol]4 U/LLow7-52The [facility] GroupComment on above:Performed By: #### MG, PT, CMP, PHOS, CBC, PTT ####[address] [address] USAAnion gap [Moles/Vol]11.2 mmol/LNormal6.0-15.0The [facility] GroupComment on above:Performed By: #### MG, PT, CMP, PHOS, CBC, PTT ####[address] [address] USAAST [Catalytic activity/Vol]17 U/NAyjqvd59-21Rys [facility] GroupComment on above:Performed By: #### MG, PT, CMP, PHOS, CBC, PTT ####[address] [address] USABilirubin [Mass/Vol]0.5 mg/dL Normal0.3-1.0The [facility] GroupComment on above:Performed By: #### MG, PT, CMP, PHOS, CBC, PTT ####[address] [address] USACalcium [Mass/Vol]8.2 mg/dLLow8.6-10.3The [facility] GroupComment on above:Performed By: #### MG, PT, CMP, PHOS, CBC, PTT ####[place] [address] [place] Chloride [Moles/Vol]105 mmol/GOmdvpy10-146Dvs [facility] GroupComment on above:Performed By: #### MG, PT, CMP, PHOS, CBC, PTT ####[place] [address] USACO2 [Moles/Vol]26.6 mmol/L Ztyvew43.0-31.0The [facility] GroupComment on above:Performed By: #### MG, PT, CMP, PHOS, CBC, PTT ####[place] [address] USACreatinine [Mass/Vol]3.53 mg/dLHigh0.60-1.20The [facility] GroupComment on above:Performed By: #### MG, PT, CMP, PHOS, CBC, PTT ####[place] [address] USACreatinine Clr Calc Oksumpmg49.77NoFormerly [facility], [facility] Physician GroupComment on above:Performed By: #### MG, PT, CMP, PHOS, CBC, PTT ####[place] [address] USAGFR/1.73 sq M.predicted MDRD (S/P/Bld) [Vol rate/Area]12.933 mL/min/{1.73_m2}NormalThe [facility] GroupComment on above:Performed By: #### MG, PT, CMP, PHOS, CBC, PTT ####[place] [address] [place] Globulin (S) [Mass/Vol]2.4 g/dLNaval Hospital Jacksonville Physician GroupComment on above:Performed By: #### MG, PT, CMP, PHOS, CBC, PTT ####[place] [address] USAGlucose [Mass/Vol]77 mg/dL Npofmz66-443Ntf [facility] GroupComment on above:Result Comment: Random Glucose Reference Range is dependent on time and content of last meal. Glucose of more than 200 mg/dL in a nonstressed, ambulatory subject supports the diagnosis of Diabetes Mellitus. ADA recommended reference rangePerformed By: #### MG, PT, CMP, PHOS, CBC, PTT ####[place] [address] [place] Potassium [Moles/Vol]3.8 mmol/LNormal3.5-5.1The [facility] HospitalComment on above:Performed By: #### MG, PT, CMP, PHOS, CBC, PTT ####[place] [address] USAProtein [Mass/Vol]5.7 g/dLLow 6.4-8.9The [facility] HospitalComment on above:Performed By: #### MG, PT, CMP, PHOS, CBC, PTT ####[place] [address] USASodium [Moles/Vol]139 mmol/CNqfwxo094-693Wdt [facility] HospitalComment on above:Performed By: #### MG, PT, CMP, PHOS, CBC, PTT ####[place] [phone] USAUrea nitrogen [Mass/Vol]64 mg/dLHigh7-25The [facility]ician GroupComment on above:Performed By: #### MG, PT, CMP, PHOS, CBC, PTT ####[place] [address] USAECH echo transthoracicon 73-37-4638KLU echo transthoracicOHIOHEALTH AR[facility] [address] [place] [address] [place] [address] Echocardiogram Signed Patient: Marleni Dennis MR#: [id number] : 1950 Acct:[id number] Age/Sex: 74 / F ADM Date: 04/08/25 Loc: Room: [address] [place] [address] Type: ADM IN Attending Dr: Nick Antonio MD Ordering Provider: Rajiv Trejo MD Date of Service: 04/08/25 ECH/ECH echo transthoracic: fluid overalod, fr/o chf Copies to: MD Rajiv Hummel MD Height: 61 in Weight: 140 lb Performed By: Kristopher Betancourt RDCS, RVT BSA: 1.6 m2 BP: 147/68 mmHg HR: [...] EL GARCIA MD on (more content not included)...NormalThe [facility] Physician GroupMagnesiumon 21-09-0134Djalpwqxm [Mass/Vol]1.1 mg/dLLow1.9-2.7The [facility] GroupComment on above: Result Comment: PERFORMED BY: [place] [address] [place] [address] PATHOLOGIST [employer] DRAWER ELIZABETH MOREL M.D.Performed By: #### MG, PT, CMP, PHOS, CBC, PTT ####[place] [address] [place] [address] [facility] HOSPITALSPartial Thromboplastin Timeon 01-97-2141aINT Coag (Bld) [Time]31.2 kLqawyg71.1-36.5The [facility]ician GroupComment on above:Result Comment: A hematocrit value greater than 55% may lead to inaccurate results in coagulation testing. Patients having hematocrit values >55% require a special collection tube for coagulation studies. Please contact the laboratory at [phone] for redraw instructions. PERFORMED BY: [facility] [address] [place] [id number] PATHOLOGIST B[employer]RAWER ELIZABETH MOREL M.D.Performed By: #### MG, PT, CMP, PHOS, CBC, PTT ####[address] [address] [facility] Phosphoruson 21-50-2872Kvywthxkp [Mass/Vol]3.2 mg/dLNormal2.5-4.5The [facility]ician GroupComment on above:Performed By: #### MG, PT, CMP, PHOS, CBC, PTT ####[place] [id number] [facility] Prothrombin Time INRon 96-36-4654INR Coag (PPP) [Relative time]1.3 {INR}Normal The [facility] Physician GroupComment on above:Result Comment: INR Therapeutic Range A) Pre- and [...] patients with mechanical heart valves: 3 - 4.5Performed By: #### MG, PT, CMP, PHOS, CBC, PTT ####[place] [address] [place] [address] USAPT Coag (PPP) [Time]15.2 sHigh9.0-12.9The [facility]ician GroupComment on above:Result Comment: A hematocrit value greater than 55% may lead to inaccurate results in coagulation testing. Patients having hematocrit values >55% require a special collection tube for coagulation studies. Please contact the laboratory at [phone] for redraw instructions.Performed By: #### MG, PT, CMP, PHOS, CBC, PTT ####[facility] [address] [place] [address] USAAlanine aminotransferase [Enzymatic activity/volume] in Serum or PlasmaOrdered By: Sohail Figueroa on 36-99-9108JWZ [Catalytic activity/Vol]6 U/LLow7-52[facility] West CampusComment on above:Performed By: #### PT, PTT, LIPASE, CMP, HS TROP, CBC #### [facility] [address] [place] [address] USAAlbumin [Mass/volume] in Serum or Plasma by Bromocresol green (BCG) dye binding methoOrdered By: Sohail Figueroa on 83-74-5668Jjarsqg BCG dye [Mass/Vol]4.1 g/dL3.5-5.7FHolzer Medical Center – JacksonAlkaline phosphatase [Enzymatic activity/volume] in Serum or PlasmaOrdered By: Sohail Figueroa on 07-49-9070PUS [Catalytic activity/Vol]38 U/RSkivyh55-271NzywyyqhfTrinity Health System West CampusComment on above:Performed By: #### PT, PTT, LIPASE, CMP, HS TROP, CBC #### [facility] [address] [place] [address] USAAppearance of UrineOrdered By: Sohail Figueroa on 04-08-2025 Appearance (U)ClearNormalClearTrinity Health System West CampusComment on above: Order Comment: Name Collection Type:: Clean-Voided MidstreamPerformed By: #### ADDONUAPLUS ####[facility] [place] [id number] USAAspartate aminotransferase [Enzymatic activity/volume] in Serum or PlasmaOrdered By: Sohail Figueroa on 76-77-8890FIV [Catalytic activity/Vol]22 U/L Tuxeel21-66PmavyurbxTrinity Health System West CampusComment on above:Performed By: #### PT, PTT, LIPASE, CMP, HS TROP, CBC #### [facility] [address] [place] [address] USABNP ser/plasOrdered By: Sohail Figueroa on 04-08-2025 Natriuretic peptide B (Bld) [Mass/Vol]1455.0 pg/mLHigh5-100[facility] West CampusComment on above:Result Comment: PERFORMED BY: [place] [address] PATHOLOGIST [employer] DRAW[employer] ELIZABETH MOREL M.D.Performed By: #### BNP ####[facility] [place] [address] USABacteria [Presence] in Urine by AutomatedOrdered By: Sohail Figueroa on 76-26-9497Gllatnqj Auto Ql (U)None seen [HPF]None SeenTrinity Health System West CampusBasophils [#/volume] in Blood by Automated countOrdered By: Sohail Figueroa on 88-15-9362Hvfyxozrb (Bld) [#/Vol]0.0 10*3/uLNormal0.0-0.2FHolzer Medical Center – JacksonComment on above:Result Comment: PERFORMED BY: [place] [address] PATHOLOGIST B[employer] DRAWER ELIZABETH MOREL M.D.Performed By: #### PT, PTT, LIPASE, CMP, HS TROP, CBC #### [address] [address] USABasophils/100 leukocytes in Blood by Automated count Ordered By: Sohail Figueroa on 90-01-7617Oyrshekuq/100 WBC (Bld)1.0 %Normal. [facility] West CampusComment on above:Performed By: #### PT, PTT, LIPASE, CMP, HS TROP, CBC #### [facility] [address] [place] [address] USABilirubin Test strip Ql (U)Ordered By: Sohail Figueroa on 70-83-5267Iprrawumd Ql (U)NegativeNegativeTrinity Health System West Campus Bilirubin.total [Mass/volume] in Serum or PlasmaOrdered By: Sohail Figueroa on 26-50-6392Uehbtrcks [Mass/Vol]0.6 mg/dLNormal0.3-1.0[facility] CampusComment on above:Performed By: #### PT, PTT, LIPASE, CMP, HS TROP, CBC #### [facility] [address] [place] [address] USACT abdomen pelvis wo conon 81-99-1608UB abdomen pelvis wo [facility] [address] [place] [address] [place] [address] CT Scan Report Signed Patient: Marleni Dennis MR#: [id number] : 1950 Acct:[id number] Age/Sex: 74 / F ADM Date: 04/08/25 Loc: ER Room: Type: [facility] ER Attending Dr: Copies to: Sohail [...] Garnett M.D. 04/08/2025 8:27 PM Dictation Location: [place] [address] Transcribed By: [facility] 04/08/252026 Dictated By: Derek Garnett DO 04/08/252018 Signed By: 04/08/252026[facility] Physician GroupCalcium [Mass/volume] in Serum or PlasmaOrdered By: Sohail Figueroa on 56-48-8437Dihuuil [Mass/Vol]9.1 mg/dLNormal 8.6-10.3FHolzer Medical Center – JacksonComment on above:Performed By: #### PT, PTT, LIPASE, CMP, HS TROP, CBC #### [facility] [address] [place] [address] USACarbon dioxide, total [Moles/volume] in Serum or Plasma Ordered By: Sohail Figueroa on 07-09-3427QD2 [Moles/Vol]25.2 mmol/RUoywrv77.0-31.0 [facility] CampusComment on above:Performed By: #### PT, PTT, LIPASE, CMP, HS TROP, CBC #### [facility] [address] [place] [address] USAChloride [Moles/volume] in Serum or PlasmaOrdered By: Sohail Figueroa on 98-16-2215Ktmxwzbp [Moles/Vol]101 mmol/FCuwpdl43-740QvwmjdmddTrinity Health System West CampusComment on above:Performed By: #### PT, PTT, LIPASE, CMP, HS TROP, CBC #### [facility] [address] [place] [address] USAColor of Urine by AutoOrdered By: Sohail Figueroa on 98-68-0050Ioaei (U)Light-yellowNormalYGreene Memorial Hospital Comment on above:Order Comment: Name Collection Type:: Clean-Voided Midstream Performed By: #### ADDONUAPLUS ####[facility] [address] [place] [id number] USAComplete Blood Count Auto Diffon 08-55-7068Bwnf Corpuscular HGB Conc34.0 g/rWHcqcsi91.0-35.0The [facility] Physician GroupComment on above:Performed By: #### PT, PTT, LIPASE, CMP, HS TROP, CBC #### [place] [address] USAMonocytes/100 WBC (Bld)17.55 %Normal0.00-20.00The [facility] Physician GroupComment on above:Performed By: #### PT, PTT, LIPASE, CMP, HS TROP, CBC #### [place] [address] USANRBC%0.1 /100{WBC}Normal0-0.5The [facility] Comment on above:Performed By: #### PT, PTT, LIPASE, CMP, HS TROP, CBC #### [place] [address] USAWhite Blood Count4.4 [CFU]/mLNormal3.8-11.6The [facility] Physician GroupComment on above:Performed By: #### PT, PTT, LIPASE, CMP, HS TROP, CBC #### [place] [address] USAComprehensive Metabolic Panelon 33-78-1746Whbyjes [Mass/Vol]4.1 g/dLNormal3.5-5.7The [facility]ician GroupComment on above: Performed By: #### PT, PTT, LIPASE, CMP, HS TROP, CBC #### [place] [address] USACreatinine Clr Calc Jfqkicxx37.34NormalThe [facility] Physician GroupComment on above:Performed By: #### PT, PTT, LIPASE, CMP, HS TROP, CBC #### [place] [address] USAGFR/1.73 sq M.predicted MDRD (S/P/Bld) [Vol rate/Area] 13.433 mL/min/{1.73_m2}NormalThe [facility] Physician GroupComment on above: Performed By: #### PT, PTT, LIPASE, CMP, HS TROP, CBC #### [facility] [address] [place] [address] USACreatinine [Mass/volume] in Serum or PlasmaOrdered By: Sohail Figueroa on 30-63-9335Pwvsaymfbm [Mass/Vol]3.42 mg/dLHigh0.60-1.20[facility] CampusComment on above:Performed By: #### PT, PTT, LIPASE, CMP, HS TROP, CBC #### [facility] [address] [place] [address] USADipstick and Microscopicon 35-59-9663Jzceajan,UrineNone SeenNormalNone SeenThe [facility] Physician GroupComment on above:Order Comment: Name Collection Type:: Clean-Voided MidstreamPerformed By: #### ADDONUAPLUS ####[place] [address] [place] [address] [place] Bilirubin,UrineNegativeNormalNegativeThe [facility] Physician GroupComment on above:Order Comment: Name Collection Type:: Clean-Voided MidstreamPerformed By: #### ADDONUAPLUS ####[address] [address] USAGlucose Ql (U)NormalNormalNormAvita Health Systeme [facility] Physician GroupComment on above:Order Comment: Name Collection Type:: Clean-Voided MidstreamPerformed By: #### ADDONUAPLUS ####[address] [address] USAHyaline Casts,UrineNoneNormal0-8The [facility] Physician GroupComment on above:Order Comment: Name Collection Type:: Clean- Voided MidstreamResult Comment: PERFORMED BY: [facility] [address] [id number] PATHOLOGIST BUR[employer] DRAWER ELIZABETH MOREL M.D.Performed By: #### ADDONUAPLUS ####[address] [address] USANitrite,UrineNegativeNormal NegativeThe Un[facility] Nash Physician GroupComment on above:Order Comment: Name Collection Type:: Clean-Voided MidstreamPerformed By: #### ADDONUAPLUS ####[address] [address] USAOccult Blood,UrineNegativeNormalNegativeThe [facility] Nash Physician GroupComment on above: Order Comment: Name Collection Type:: Clean-Voided MidstreamResult Comment: PERFORMED BY: [facility] [address] [id number] PATHOLOGIST BURNT LIME DRAWER ELIZABETH MOREL M.D.Performed By: #### ADDONUAPLUS ####[address] [address] USARBC,Kqjxb0-8Vemfru1-7Uul [facility] Physician GroupComment on above:Order Comment: Name Collection Type:: Clean-Voided MidstreamPerformed By: #### ADDONUAPLUS ####[address] [address] USASpecificy [place],Urine1.006 Normal1.001-1.030The [facility] Nash Physician GroupComment on above:Order Comment: Name Collection Type:: Clean-Voided MidstreamPerformed By: #### ADDONUAPLUS ####[address] [address] [place] Urobilinogen,UrineNormalNormalNormalThe [facility] Nash Physician GroupComment on above:Order Comment: Name Collection Type:: Clean-Voided MidstreamPerformed By: #### ADDONUAPLUS ####[address] [address] USAWBC,Exxbu4-8Krfxgy3-3Xxq [facility] Physician GroupComment on above: Order Comment: Name Collection Type:: Clean-Voided MidstreamPerformed By: #### ADDONUAPLUS ####[address] [address] USAECG 12 lead ECGon 39-07-2388FKU 12 lead ECGOHIOHEALTH [facility] [place] [address] [place] [address] Electrocardiograph Report Signed Patient: Marleni Dennis MR#: [id number] : 1950 Acct:[id number] Age/Sex: 74 / F ADM Date: 04/08/25 Loc: Room: [address] [place] [address] Type: ADM IN Attending Dr: Rajiv Trejo [...] fascicular block Confirmed by Evette Mari MD ([id number]) on 04/09/2025 7:24:05 AM Referred By: Electronically Signed By: Evette Mari MD Transcribed By: MUS Signed By Evette Mari MD 03/19 12/10 0724[facility] Physician GroupEosinophils [#/volume] in Blood by Automated countOrdered By: Sohail Figueroa on 78-49-9037Kibhvaktlrm (Bld) [#/Vol] 0.1 10*3/uLNormal0.0-0.45[facility] CampusComment on above: Performed By: #### PT, PTT, LIPASE, CMP, HS TROP, CBC #### [facility] [address] [place] [address] USAEosinophils/100 leukocytes in Blood by Automated count Ordered By: Sohail Figueroa on 88-79-4017Pxjvcmuoegu/100 WBC (Bld)2.6 %Normal. [facility] West CampusComment on above:Performed By: #### PT, PTT, LIPASE, CMP, HS TROP, CBC #### [facility] [address] [place] [address] USAEpithelial cells.squamous [#/area] in Urine sediment by Automated countOrdered By: Sohail Figueroa on 26-28-9865Krdntpyznn cells.squamous Auto (Urine sed) [#/Area]N/Mercy HospitalErythrocyte distribution width [Ratio] by Automated countOrdered By: Sohail Figueroa on 37-33-9455Kkhkwzuhhvf distribution width (RBC) [Ratio]16.0 %High11.9-15.3 [facility] West CampusComment on above:Performed By: #### PT, PTT, LIPASE, CMP, HS TROP, CBC #### [facility] [address] [place] [address] USAErythrocytes [#/area] in Urine sediment by Automated count Ordered By: Sohail Figueroa on 20-03-6496ALG Auto (Urine sed) [#/Area]1-2 [HPF]0-4 [facility] CampusErythrocytes [#/volume] in Blood by Automated countOrdered By: Sohail Figueroa on 41-85-4220URI (Bld) [#/Vol]3.34 10*6/uLLow 3.60-5.00[facility] CampusComment on above:Performed By: #### PT, PTT, LIPASE, CMP, HS TROP, CBC #### [facility] [address] [place] [address] USAGlucose [Mass/volume] in Serum or PlasmaOrdered By: Sohail Figueroa on 51-14-3291Znuirwp [Mass/Vol]110 mg/vCEoay24-565WcseptsqjTrinity Health System West CampusComment on above:ADA recommended reference rangeRandom Glucose Reference Range is dependent on time and content of last meal. Glucose of more than 200 mg/dL in a nonstressed, ambulatory subject supports the diagnosisof Diabetes Mellitus.Result Comment: Random Glucose Reference Range is dependent on time and content of last meal. Glucose of more than 200 mg/dL in a nonstressed, ambulatory subject supports the diagnosis of Diabetes Mellitus. ADA recommended reference rangePerformed By: #### PT, PTT, LIPASE, CMP, HS TROP, CBC #### [facility] [address] [place] [address] USAGlucose [Mass/volume] in Urine by Test stripOrdered By: Sohail Figueroa on 56-98-7512Ksmlmoo Test strip (U) [Mass/Vol]Normal mg/dLNormal [facility] West CampusHematocrit [Volume Fraction] of Blood by Automated countOrdered By: Sohail Figueroa on 46-34-3333Ipgqgydxyp (Bld) [Volume fraction]29.5 %Low34.0-46.4FHolzer Medical Center – JacksonComment on above: Performed By: #### PT, PTT, LIPASE, CMP, HS TROP, CBC #### [facility] [address] [place] [address] USAHemoglobin Test strip Ql (U)Ordered By: Sohail Figueroa on 15-24-0040Ihizxueqjh Ql (U)NegativeNegativeTrinity Health System West Campus Hemoglobin [Mass/volume] in BloodOrdered By: Sohail Figueroa on 04-08-2025 Hemoglobin (Bld) [Mass/Vol]10.0 g/dLLow11.8-15.4FHolzer Medical Center – JacksonComment on above:Performed By: #### PT, PTT, LIPASE, CMP, HS TROP, CBC #### [facility] [address] [place] [address] USAHyaline casts [#/area] in Urine sediment by Automated countOrdered By: Sohail Figueroa on 03-78-5910Gedoqtr casts Auto (Urine sed) [#/Area]None [LPF]0-8Tr[facility] West CampusINR in Platelet poor plasma by Coagulation assayOrdered By: Sohail Figueroa on 40-74-3676INS Coag (PPP) [Relative time]1.4 {INR}NormalTrinity Health System West CampusComment on above: INR Therapeutic Range A) Pre- and Peroperative [...] patients with mechanical heart valves: 3 - 4.5Performed By: #### PT, PTT, LIPASE, CMP, HS TROP, CBC #### [facility] [address] [place] [id number] USAKetones [Presence] in Urine by Test stripOrdered By: Sohail Figueroa on 80-66-9973Hijzvck Ql (U)NegativeCarthageNegLakeHealth Beachwood Medical CenterComment on above:Order Comment: Name Collection Type:: Clean- Voided MidstreamPerformed By: #### ADDONUAPLUS ####[facility] [address] [place] [id number] USALeukocyte esterase [Presence] in Urine by Test stripOrdered By: Sohail Figueroa on 25-34-9550Ugvthawhb esterase Test strip Ql (U)NegativeNormalNegLakeHealth Beachwood Medical CenterComment on above:Order Comment: Name Collection Type:: Clean-Voided MidstreamPerformed By: #### ADDONUAPLUS ####[facility] [address] [place] [id number] USALeukocytes [#/area] in Urine sediment by Automated countOrdered By: Sohail Figueroa on 65-98-4679LTO Auto (Urine sed) [#/Area]1-2 [HPF]0-4FHolzer Medical Center – JacksonLeukocytes [#/volume] corrected for nucleated erythrocytes in Blood by Automated counOrdered By: Sohail Figueroa on 56-67-3109ZHF corrected for nucl RBC Auto (Bld) [#/Vol]4.4 10*3/uL3.8-11.6FHolzer Medical Center – JacksonLeukocytes [#/volume] in Blood by Automated countOrdered By: Sohail Figueroa on 63-35-9132HZL (Bld) [#/Vol]4.4 10*3/uLNormal3.8-11.6FHolzer Medical Center – JacksonComment on above:Performed By: #### PT, PTT, LIPASE, CMP, HS TROP, CBC #### [facility] [address] [place] [address] USALipase [Enzymatic activity/volume] in Serum or Plasma Ordered By: Sohail Figueroa on 75-09-1528Ehvazb [Catalytic activity/Vol]110.0 U/L High11.0-82.0Tr[facility] West CampusComment on above:Result Comment: PERFORMED BY: [facility] [address] [place] [address] PATHOLOGIST BURNT LIME DRAWER ELIZABETH MOREL M.D.Performed By: #### PT, PTT, LIPASE, CMP, HS TROP, CBC #### [place] [address] USALymphocytes [#/volume] in Blood by Automated countOrdered By: Sohail Figueroa on 74-75-1750Lkwdtmuyxjt (Bld) [#/Vol]1.0 10*3/uLNormal1.00-4.8 [facility] CampusComment on above:Performed By: #### PT, PTT, LIPASE, CMP, HS TROP, CBC #### [place] [address] USALymphocytes/100 leukocytes in Blood by Automated count Ordered By: Sohail Figueroa on 50-30-4456Kpiweeokbfg/100 WBC (Bld)23.3 %Normal. [facility] West CampusComment on above:Performed By: #### PT, PTT, LIPASE, CMP, HS TROP, CBC #### [address] [Entitic mass] by Automated countOrdered By: Sohail Figueroa on 20-19-1655LZD (RBC) [Entitic mass]30.1 tcCmgvsw72.7-34.3FHolzer Medical Center – JacksonComment on above:Performed By: #### PT, PTT, LIPASE, CMP, HS TROP, CBC #### [address] Auto (RBC) [Mass/Vol]Ordered By: Sohail Figueroa on 89-15-0171XGVU (RBC) [Mass/Vol]34.0 g/dL32.0-35.0Tr[facility] System West CampusMCV [Entitic volume] by Automated countOrdered By: Sohail Figueroa on 33-10-3831ZNQ (RBC) [Entitic vol]88.4 iWHksizf94-899CidztohiuTrinity Health System West CampusComment on above:Performed By: #### PT, PTT, LIPASE, CMP, HS TROP, CBC #### [facility] [address] [place] [id number] USAMonocyte distribution width [Entitic volume] in Blood by AutomatedOrdered By: Sohail Figueroa on 36-54-6298Ktemlhrr distribution width Auto (Bld) [Entitic vol]17.55 %0.00-20.00Tr[facility] West CampusMonocytes [#/volume] in Blood by Automated countOrdered By: Sohail Figueroa on 04-08-2025 Monocytes (Bld) [#/Vol]0.4 10*3/uLNormal0.0-0.8[facility] Comment on above:Performed By: #### PT, PTT, LIPASE, CMP, HS TROP, CBC #### [facility] [address] [place] [id number] USAMonocytes/100 leukocytes in Blood by Automated count Ordered By: Sohail Figueroa on 13-05-9865Lkonmqptv/100 WBC (Bld)10.0 %Normal. [facility] West CampusComment on above:Performed By: #### PT, PTT, LIPASE, CMP, HS TROP, CBC #### [facility] [address] [place] [address] USANeutrophils [#/volume] in Blood by Automated countOrdered By: Sohail Figueroa on 05-36-4653Xqmkomreglc (Bld) [#/Vol]2.8 10*3/uLNormal1.8-7.7 [facility] CampusComment on above:Performed By: #### PT, PTT, LIPASE, CMP, HS TROP, CBC #### [facility] [address] [place] [id number] USANeutrophils/100 leukocytes in Blood by Automated count Ordered By: Sohail Figueroa on 09-28-2460Iokuscvzhhh/100 WBC (Bld)63.1 %Normal. [facility] West CampusComment on above:Performed By: #### PT, PTT, LIPASE, CMP, HS TROP, CBC #### [place] [address] USANitrite Test strip Ql (U)Ordered By: Sohail Figueroa on 52-01-0882Crbsrkp Ql (U)NegativeNegativeTrinity Health System West CampusNo Panel InformationOrdered By: Sohail Figueroa on 00-95-6885Msqvnkusy GFR (CKD-EPI) 13.433 mL/MinTrinity Health System West CampusPharmacy Creatinine Clearance (Chem12.34Tr[facility] West CampusNucleated erythrocytes [Presence] in Blood by Automated countOrdered By: Sohail Figueroa on 59-69-1086Couapqmmf RBC Auto Ql (Bld)0.1 /100{WBC}0-0.5FHolzer Medical Center – JacksonPartial Thromboplastin Timeon 42-86-4464iOLZ Coag (Bld) [Time]31.6 kTytxoh68.1-36.5The [facility] Nash Physician GroupComment on above:Result Comment: A hematocrit value greater than 55% may lead to inaccurate results in coagulation testing. Patients having hematocrit values >55% require a special collection tube for coagulation studies. Please contact the laboratory at [phone] for redraw instructions. PERFORMED BY: [place] [address] PATHOLOGIST BURNT LIME DRAWER ELIZABETH MOREL M.D.Performed By: #### PT, PTT, LIPASE, CMP, HS TROP, CBC #### [address] [address] USAPlatelet mean volume [Entitic volume] in Blood by Automated countOrdered By: Sohail Figueroa on 71-03-2056Hudskmco mean volume (Bld) [Entitic vol]9.5 fLNormal6.3-10.7FHolzer Medical Center – JacksonComment on above:Performed By: #### PT, PTT, LIPASE, CMP, HS TROP, CBC #### [facility] [address] [place] [address] USAPlatelets [#/volume] in Blood by Automated countOrdered By: Sohail Figueroa on 30-83-6089Danecjpbt (Bld) [#/Vol]211 10*3/tDTbhleo079-220 [facility] CampusComment on above:Performed By: #### PT, PTT, LIPASE, CMP, HS TROP, CBC #### [facility] [address] [place] [address] USAPotassium [Moles/volume] in Serum or PlasmaOrdered By: Sohail Figueroa on 72-60-4165Bkjkitjfr [Moles/Vol]4.3 mmol/LNormal3.5-5.1FHolzer Medical Center – JacksonComment on above:Performed By: #### PT, PTT, LIPASE, CMP, HS TROP, CBC #### [facility] [address] [place] [address] USAProtein [Mass/volume] in Serum or PlasmaOrdered By: Sohail Figueroa on 42-10-2508Ngialbx [Mass/Vol]7.1 g/dLNormal6.4-8.9[facility] CampusComment on above:Performed By: #### PT, PTT, LIPASE, CMP, HS TROP, CBC #### [facility] [address] [place] [address] USAProtein [Mass/volume] in Urine by Test stripOrdered By: Sohail Figueroa on 13-10-1852Nghlwcu (U) [Mass/Vol]50 mg/dLNormalNegativeTrinity Health System West CampusComment on above:Order Comment: Name Collection Type:: Clean-Voided MidstreamPerformed By: #### ADDONUAPLUS ####[facility] [place] [address] USAProthrombin time (PT)Ordered By: Sohail Figueroa on 04-54-5786CM Coag (PPP) [Time]16.2 sHigh9.0-12.9[facility] West CampusComment on above:A hematocrit value greater than 55% may lead to inaccurate results in coagulation testing. Patientshaving hematocrit values >55% require a special collection tube for coagulation studies. Please c ontact the laboratory at [phone] for redraw instructions.Result Comment: A hematocrit value greater than 55% may lead to inaccurate results in coagulation testing. Patients having hematocrit values >55% require a special collection tube for coagulation studies. Please contact the laboratory at [phone] for redraw instructions.Performed By: #### PT, PTT, LIPASE, CMP, HS TROP, CBC #### [facility] [address] [place] [id number] USASerum globulin measurement by calculation (mass/volume) Ordered By: Sohail Figueroa on 03-15-0686Dzbgacwy (S) [Mass/Vol]3.0 g/dLNormal [facility] CampusComment on above:Performed By: #### PT, PTT, LIPASE, CMP, HS TROP, CBC #### [facility] [address] [place] [address] USASerum or plasma albumin/globulin mass ratioOrdered By: Sohail Figueroa on 81-30-1841Vuadexq/Globulin [Mass ratio]1.4 {ratio}Normal [facility] CampusComment on above:Performed By: #### PT, PTT, LIPASE, CMP, HS TROP, CBC #### [place] [address] USASerum or plasma anion gap determinationOrdered By: Sohail Figueroa on 18-59-2392Sjdim gap [Moles/Vol]15.1 mmol/LHigh6.0-15.0[facility] CampusComment on above:Performed By: #### PT, PTT, LIPASE, CMP, HS TROP, CBC #### [place] [address] USASodium [Moles/volume] in Serum or PlasmaOrdered By: Sohail Figueroa on 00-02-5051Drxura [Moles/Vol]137 mmol/CQgninx011-491HgsyqkizaTrinity Health System West CampusComment on above:Performed By: #### PT, PTT, LIPASE, CMP, HS TROP, CBC #### [place] [address] USASpecific gravity Test strip (U) [Rel density]Ordered By: Sohail Figueroa on 74-98-9427Yymvcstd gravity (U) [Rel density]1.0061.001-1.030 [facility] West CampusTroponin I High Sensitivityon 04-08-2025 Troponin I High Havjymiskxj39Sipu9-63Tvi [facility] Physician GroupComment on above:Result Comment: The Troponin units of report have been changed to meet the Chest Pain Accreditation requirement, element EC5.M1l2. Troponin units are changed from pg/ml to ng/L. Also, the decimal is removed and results are in whole numbers. PERFORMED BY: [address] [address] PATHOLOGIST BURNT LIME DRAWER ELIZABETH MOREL M.D.Performed By: #### PT, PTT, LIPASE, CMP, HS TROP, CBC #### [address] [address] USATroponin I.cardiac [Mass/volume] in Serum or Plasma by Detection limit <= 0.01 ng/mLOrdered By: Sohail Figueroa on 32-76-5346Mhulvbef I.cardiac DL <= 0.01 ng/mL [Mass/Vol]25 ng/LHigh0-15[facility] CampusComment on above:The Troponin units of report have been changed to meet the Chest Pain Accreditation requirement, element EC5.M1l2. Troponin units are changed from pg/ml to ng/L. Also, the decimal is removed and results are in whole numbers.Type and Screenon 82-87-7400UKJ and Rh group Nom (Bld)Blood group AB Rh(D) positiveNoFormerly [facility], [facility] Physician GroupComment on above:Result Comment: PERFORMED BY: [address] [address] PATHOLOGIST BURNT LIME DRAWER ELIZABETH MOREL M.D.Urea nitrogen [Mass/volume] in Serum or PlasmaOrdered By: Sohail Figueroa on 34-45-7126Dsyg nitrogen [Mass/Vol]71 mg/dLThomas Memorial Hospital7-25[facility] CampusComment on above:Performed By: #### PT, PTT, LIPASE, CMP, HS TROP, CBC #### [facility] [address] [place] [address] USAUrobilinogen Test strip (U) [Mass/Vol]Ordered By: Sohail Figueroa on 22-04-5537Ujkinejidiuh (U) [Mass/Vol]Normal mg/dLNormalTrinity Health System West CampusX-ray reportOrdered By: Derek Garnett on 99-88-6340Kztmm reportOHIOHEALTH ARTHUR [facility] [place] [address] [place] [address] XRay Report Signed Patient: Marleni Dennis MR#: [id number] : 1950 Acct:[id number] Age/Sex: 74 / F ADM Date: 5 Loc: ER Room: Type: [facility] ER Attending Dr: Copies to: Sohail [...] process, pleural effusion or pneumothorax identified. Minor similarinterstitial changes BONY STRUCTURES: Intact ADDITIONAL FINDINGS None XR/XR chest 2V* IMPRESSION: Cardiomegaly with hilar vascular prominence. Impression dictated by: Derek Garnett M.D. 04/08/2025 8:43 PM Dictation Location: [place] [address] Transcribed By: [facility] 04/08/252042 Dictated By: Derek Garnett DO 04/08/252038 Signed By: 04/08/252042 [facility] CampusXR chest 2V*on 03-65-8089TN chest 2V*[facility] Main [place] [address] [place] [address] XRay Report Signed Patient: Marleni Dennis MR#: [id number] : 1950 Acct:[id number] Age/Sex: 74 / F ADM Date: 04/08/25 Loc: ER Room: Type: [facility] ER Attending Dr: Copies to: Sohail [...] Garnett M.D. 04/08/2025 8:43 PM Dictation Location: [place] [address] Transcribed By: [facility] 04/08/252042 Dictated By: Derek Garnett DO 04/08/252038 Signed By: 04/08/252042[facility] Physician GroupaPTT in Platelet poor plasma by Coagulation assayOrdered By: Sohail Figueroa on 98-81-1242bPYD Coag (PPP) [Time] 31.6 s25.1-36.5FHolzer Medical Center – JacksonComment on above:A hematocrit value greater than 55% may lead to inaccurate results in coagulation testing. Patientshaving hematocrit values >55% require a special collection tube for coagulation studies. Please contact the laboratory at [phone] for redraw instructions.pH of Urine by Test stripOrdered By: Sohail Figueroa on 49-79-9318uT (U)6.5 [pH]Normal5.0-9.0[facility] CampusComment on above:Order Comment: Name Collection Type:: Clean-Voided MidstreamPerformed By: #### ADDONUAPLUS ####[facility] [address] [place] [address] USACBC (INCLUDES DIFF/PLT)on 15-54-6372Upunhqffx (Bld) [#/Vol]0.02 10*3/uL Normal0-200Quest DiagnosticsComment on above:Performed By: #### 3020, [address], %SBCULI, 6399 #### [facility] [address] , [address] [place] [address] Material Specialist: Figueroa Jacques MDBasophils/100 WBC (Bld)0.5 %NormalQuest DiagnosticsComment on above:Performed By: #### 3020, [address], %SBCULI, 6399 #### [facility] [address], [address] [place] [address] Material Specialist: Figueroa Jacques MDEosinophils (Bld) [#/Vol]0.121 10*3/uLNormal 15-500Quest DiagnosticsComment on above:Performed By: #### 3020, [address], %SBCULI, 6399 #### [facility] of [address], [address] [place] [address] Material Specialist: Figueroa aJcques MDEosinophils/100 WBC (Bld)3.1 %NormalQuest DiagnosticsComment on above:Performed By: #### 3020, [address], %SBCULI, 6399 #### [facility] of [place] [address] Material Specialist: Figueroa Jacques MDErythrocyte distribution width (RBC) [Ratio] 15.8 %High11.0-15.0Quest DiagnosticsComment on above:Performed By: #### 3020, [address], %SBCULI, 6399 #### [facility] of [place] [address] Material Specialist: Figueroa Jacques MDHematocrit (Bld) [Volume fraction]27.4 %Low 35.0-45.0Quest DiagnosticsComment on above:Performed By: #### 3020, [address], %SBCULI, 6399 #### [facility] of [place] [address] Material Specialist: Figueroa Jacques MDHemoglobin (Bld) [Mass/Vol]8.7 g/dLLow 11.7-15.5Quest DiagnosticsComment on above:Performed By: #### 3020, [address], %SBCULI, 6399 #### [facility] of [place] [address] Material Specialist: Figueroa Jacques MDLymphocytes (Bld) [#/Vol]0.94 10*3/uLNormal 850-3900Quest DiagnosticsComment on above:Performed By: #### 3020, [address], %SBCULI, 6399 #### [facility] of [address], [address] [place] [address] Material Specialist: Figueroa Jacques MDLymphocytes/100 WBC (Bld)24.1 %NormalQuest DiagnosticsComment on above:Performed By: #### 3020, [address], %SBCULI, 6399 #### [facility] of [address], [address] [place] [address] Material Specialist: Figueroa Jacques MDMCH (RBC) [Entitic mass]29.6 gsSeeoti20.0-33.0 Quest DiagnosticsComment on above:Performed By: #### 3020, [address], %SBCULI, 6399 #### [facility] of [address], [address] [place] [address] Material Specialist: Figueroa CEVALLOSCHC (RBC) [Mass/Vol]31.8 g/dLLow32.0-36.0 Quest DiagnosticsComment on above:Result Comment: For adults, a slight decrease in the calculated MCHC value (in the range of 30 to 32 g/dL) is most likely not clinically significant; however, it should be interpreted with caution in correlation with other red cell parameters and the patient's clinical condition.Performed By: #### 3020, [address], %SBCULI, 6399 #### [facility] [address], [address] [place] [address] Material Specialist: Figueroa Jacques MDMCV (RBC) [Entitic vol]93.2 mMFtowbe71.0-100.0 Quest DiagnosticsComment on above:Performed By: #### 3020, 18[address], %SBCULI, 6399 #### [facility] of [address], [address] [place] [address] Material Specialist: Figueroa Jacques MDMonocytes (Bld) [#/Vol]0.507 10*3/uLNormal 200-950Quest DiagnosticsComment on above:Performed By: #### 3020, [address], %SBCULI, 6399 #### [facility] of [place] [address], [address] [place] [address] Material Specialist: Figueroa Jacques MDMonocytes/100 WBC (Bld)13.0 %NormalQuest DiagnosticsComment on above:Performed By: #### 3020, [address], %SBCULI, 6399 #### [facility] of [address], [address] [place] [address] Material Specialist: Figueroa Jacques MDNeutrophils (Bld) [#/Vol]2.313 10*3/uLNormal 1500-7800Quest DiagnosticsComment on above:Performed By: #### 3020, [address], %SBCULI, 6399 #### [facility] of [address] , [address] [place] [address] Material Specialist: Figueroa Jacques MDNeutrophils/100 WBC (Bld)59.3 %NormalQuest DiagnosticsComment on above:Performed By: #### 3020, [address], %SBCULI, 6399 #### [facility] of [address], [address] [place] [address] Material Specialist: Figueroa Jacques MDPlatelet mean volume (Bld) [Entitic vol]11.3 fLNormal7.5-12.5Quest DiagnosticsComment on above:Performed By: #### 3020, [address], %SBCULI, 6399 #### [facility] of [place] [address] [address] , [address] [place] [address] Material Specialist: Figueroa Jacques MDPlatelets (Bld) [#/Vol]188 10*3/uLNormal 140-400Quest DiagnosticsComment on above:Performed By: #### 3020, [address], %SBCULI, 6399 #### [facility] of [place] [address], [address] [place] [address] Material Specialist: Figueroa Jacques MDRBC (Bld) [#/Vol]2.94 10*6/uLLow3.80-5.10Quest DiagnosticsComment on above:Performed By: #### 3020, [address], %SBCULI, 6399 #### [facility] of [address], [address] [place] [address] Material Specialist: Figueroa Jacques MDW ([facility]) [#/Vol]3.9 10*3/uLNormal3.8-10.8 Quest DiagnosticsComment on above:Performed By: #### 3020, [address], %SBCULI, 6399 #### [facility] of [address], [address] [place] [address] Material Specialist: Figueroa Jacques [facility] – ADAOMPREHENSIVE METABOLIC PANELon 04-04-2025 Albumin [Mass/Vol]3.6 g/dLNormal3.6-5.1Quest DiagnosticsComment on above: Performed By: #### 3020, [address], %SBCULI, 6399 #### [facility] of [address], [address] [place] [address] Material Specialist: Figueroa Jacques MDAlbumin/Globulin [Mass ratio]1.4 {ratio}Normal 1.0-2.5Quest DiagnosticsComment on above:Performed By: #### 3020, 41029, %SBCULI, 6399 #### [facility] of [address], [address] [place] [address] Material Specialist: Figueroa Jacques MDALP [Catalytic activity/Vol]37 U/MIkvqad69-957 Quest DiagnosticsComment on above:Performed By: #### 3020, 59536, %SBCULI, 6399 #### [facility] of [address], [address] [place] [address] Material Specialist: Figueroa Jacques MDALT [Catalytic activity/Vol]5 U/LLow6-29Quest DiagnosticsComment on above:Performed By: #### 3020, 70847, %SBCULI, 6399 #### [facility] of [address], [address] [place] [address] Material Specialist: Figueroa Jacques MDAST [Catalytic activity/Vol]15 U/WQwvfyr40-00 Quest DiagnosticsComment on above:Performed By: #### 3020, 34278, %SBCULI, 6399 #### [facility] of [address], [address] [place] [address] Material Specialist: Figueroa Jacques MDBilirubin [Mass/Vol]0.6 mg/dLNormal0.2-1.2 Quest DiagnosticsComment on above:Performed By: #### 3020, 05653, %SBCULI, 6399 #### [facility] of [address], [address] [place] [address] Material Specialist: Figueroa Jacques MDCalcium [Mass/Vol]8.8 mg/dLNormal8.6-10.4Quest DiagnosticsComment on above:Performed By: #### 3020, 94666, %SBCULI, 6399 #### [facility] of [address], [address] [place] [address] Material Specialist: Figueroa Jacques MDChloride [Moles/Vol]98 mmol/VHbpoxs97-432Euvkw DiagnosticsComment on above:Performed By: #### 3020, 99504, %SBCULI, 6399 #### [facility] of [place] [address] Material Specialist: Figueroa Jacques MDCO2 [Moles/Vol]25 mmol/OHzukqs17-77Wyqkh DiagnosticsComment on above:Performed By: #### 3020, 91183, %SBCULI, 6399 #### [facility] of [place] [address] Material Specialist: Figueroa Jacques MDCreatinine [Mass/Vol]4.59 mg/dLHigh0.60-1.00 Quest DiagnosticsComment on above:Performed By: #### 3020, 11199, %SBCULI, 6399 #### [facility] of [place] [address] Material Specialist: Figueroa Jacques MDGFR/1.73 sq M.predicted among non-blacks MDRD (S/P/Bld) [Vol rate/Area]9 mL/min/{1.73_m2}Low> OR = 60Quest DiagnosticsComment on above:Performed By: #### 3020, 96881, %SBCULI, 6399 #### [facility] of [place] [address] Material Specialist: Figueroa Jacques MDGlobulin (S) [Mass/Vol]2.5 g/dLNormal1.9-3.7 Quest DiagnosticsComment on above:Performed By: #### 3020, 55468, %SBCUSUZIE, 6399 #### [facility] of [place] [address] Material Specialist: Figueroa Jacques MDGlucose [Mass/Vol]96 mg/fMOddrvk94-71Jbizk DiagnosticsComment on above:Result Comment: Fasting reference intervalPerformed By: #### 3020, 93296, %SBCULI, 6399 #### [facility] of [place] [address] Material Specialist: Figueroa Jacques MDPotassium [Moles/Vol]3.8 mmol/LNormal3.5-5.3 Quest DiagnosticsComment on above:Performed By: #### 3020, 25251, %SBCULI, 6399 #### [facility] of [place] [address] Material Specialist: Figueroa Jacques MDProtein [Mass/Vol]6.1 g/dLNormal6.1-8.1Quest DiagnosticsComment on above:Performed By: #### 3020, 67765, %SBCULI, 6399 #### [facility] of [place] [address] Material Specialist: Figueroa Jacques MDSodium [Moles/Vol]136 mmol/JNuqvii599-393Vhuhs DiagnosticsComment on above:Performed By: #### 3020, 66111, %SBCULI, 6399 #### [facility] [address], [address] [place] [address] Material Specialist: Figueroa Jacques MDUrea nitrogen [Mass/Vol]69 mg/dLHigh7-25Quest DiagnosticsComment on above:Performed By: #### 3020, 64594, %SBCULI, 6399 #### [facility] [address], [address] [place] [address] Material Specialist: Figueroa Jacques MDUrea nitrogen/Creatinine [Mass ratio]15 mg/mg Normal6-22Quest DiagnosticsComment on above:Performed By: #### 3020, 62004, %SBCULI, 6399 #### [facility] [address], [address] [place] [address] Material Specialist: Figueroa Jacques MDCULTURE, URINE, ROUTINEon 35-55-5391VXGLEUV, URINE, ROUTINESEE NOTENormalQuest DiagnosticsComment on above:Result Comment: CULTURE, URINE, ROUTINE Micro Number: [id number] Test Status: Final Specimen Source: Urine Specimen Quality: Adequate Result: Less than 10,000 CFU/mL of single Gram positive organism isolated. No further testing will be performed. If clinically indicated, recollection using a method to minimize contamination, with prompt transfer to Urine Culture Transport Tube, is recommended.Performed By: #### 3020, 99016, %SBCULI, 6399 #### [facility] [address], [address] [place] [address] Material Specialist: Figueroa Jacques MDOffice Visiton [id number]-up visit [id number] Marleni Dennis 1950 F Date Provider Department [place] 04/04/2025 [id number]-SCTXAICARA SANCHEZ Family History Problem Relation Age of Onset Coronary artery disease Mother Stroke Mother Coronary artery disease Father Ovarian cancer Sister Family Status - Relation Status Age at Mother Father Sister Level of Service:91095 MI OFFICE/OUTPATIENT ESTABLISHED MOD [facility]DM [facility] CULTUREon 16-26-2134IPTNJLRVR URINE CULTURENormalQuest DiagnosticsComment on above:Result Comment: CULTURE INDICATED - RESULTS TO FOLLOWPerformed By: #### 3020, 34380, %SBCULI, 6399 #### [facility] of [place] [address] Material Specialist: Figueroa Jacques MDURINALYSIS, COMPLETE W/REFLEX TO CULTUREon 93-20-7330Puavhbbgjv (U)CLOUDYAbnormalCLEARQuest DiagnosticsComment on above: Performed By: #### 3020, 01181, %SBCULI, 6399 #### [facility] of [address], [address] [place] [address] Material Specialist: Figueroa Jacques MDBACTERIANONE SEENNormalNONE SEENQuest DiagnosticsComment on above:Performed By: #### 3020, 79790, %SBCULI, 6399 #### [facility] of [address], [address] [place] [address] Material Specialist: Figueroa Jacques MDBilirubin Ql (U)NegativeNormalNEGATIVEQuest DiagnosticsComment on above:Performed By: #### 3020, 19109, %SBCULI, 6399 #### [facility] of [place] [address] Material Specialist: Figueroa Jacques MDColor (U)YELLOWNormalYELLOWQuest Diagnostics Comment on above:Performed By: #### 3020, 47281, %SBCULI, 6399 #### [facility] of [address], [address] [place] [address] Material Specialist: Figueroa Jacques MDGlucose Ql (U)NegativeNormalNEGATIVEQuest DiagnosticsComment on above:Performed By: #### 3020, 85682, %SBCULI, 6399 #### [facility] of [place] [address] Material Specialist: Figueroa Jacques MDHYALINE OWAJ26-21YmwbesnfHERN SEENQuest DiagnosticsComment on above:Performed By: #### 3020, 72378, %SBCULI, 6399 #### [facility] of [address], [address] [place] [address] Material Specialist: Figueroa Jacques MDKetones Ql (U)NegativeNormalNEGATIVEQuest DiagnosticsComment on above:Performed By: #### 3020, 70642, %SBCULI, 6399 #### [facility] of [address], [address] [place] [address] Material Specialist: Figueroa Jacques MDLeukocyte esterase Test strip Ql (U)TRACE AbnormalNEGATIVEQuest DiagnosticsComment on above:Performed By: #### 3020, 81971, %SBCULI, 6399 #### [facility] of [address], [address] [place] [address] Material Specialist: Figueroa Jacques MDNitrite Ql (U)NegativeNormalNEGATIVEQuest DiagnosticsComment on above:Performed By: #### 3020, 33139, %SBCULI, 6399 #### [facility] of [place] [address] Material Specialist: Figueroa Jacques MDNOTENormalQuest DiagnosticsComment on above: Result Comment: This urine was analyzed for the presence of WBC, RBC, bacteria, casts, and other formed elements. Only those elements seen were reported.Performed By: #### 3020, 53740, %SBCULI, 6399 #### [facility] of [address], [address] [place] [address] Material Specialist: Figueroa Jacques MDOCCULT BLOODNegativeNormalNEGATIVEQuest DiagnosticsComment on above:Performed By: #### 3020, 17299, %SBCULI, 6399 #### [facility] of [address], [address] [place] [address] Material Specialist: Figueroa Jacques MDpH (U)5.5 [pH]Normal5.0-8.0[facility] Comment on above:Performed By: #### 3020, 40323, %SBCULI, 6399 #### [facility] of [place] [address], [address] [place] [address] Material Specialist: Figueroa Jacques MDProtein Ql (U)3+AbnormalNEGATIVEQuest DiagnosticsComment on above:Performed By: #### 3020, 90071, %SBCULI, 6399 #### [facility] of [address], [address] [place] [address] Material Specialist: Figueroa Jacques MDRBCNONE SEENNormal< OR = 2[facility] Comment on above:Performed By: #### 3020, 32607, %SBCULI, 6399 #### [facility] of [address], [address] [place] [address] Material Specialist: Figueroa SILVERMANpecific gravity (U) [Rel density]1.010Normal 1.001-1.035Quest DiagnosticsComment on above:Performed By: #### 3020, 32131, %SBCULI, 6399 #### [facility] of [place] [address] [address] , [address] [place] [address] Material Specialist: Figueroa SILVERMANQUAMOUS EPITHELIAL CELLS0-5Normal< OR = 5 Quest DiagnosticsComment on above:Performed By: #### 3020, 82846, %SBCULI, 6399 #### [facility] of [address], [address] [place] [address] Material Specialist: Figueroa Jacques MDWBC0-5Normal< OR = 5Quest DiagnosticsComment on above:Performed By: #### 3020, 95390, %SBCULI, 6399 #### [facility] of [address], [address] [place] [address] Material Specialist: Figueroa Jacques MD30on 22-82-566566Mrk patient is Moderately Stable - Low risk of patient condition declining or worsening The patient's goals for the shift include rest The clinical goals for the shift include vssNormalUniversity of Baylor [facility] White [facility] Center – SunnyvaleBASIC METABOLIC PANELon 07-30-0665Kcfrr gap [Moles/Vol]13 mmol/LNormal7-20 [facility] HospitalComment on above:Performed By: #### [id number] ####[facility] ([facility])[address] [place] [address]Xarrcut [Mass/Vol]8.3 mg/dLLow8.6-10.3UnThe University of Toledo Medical CenterComment on above:Performed By: #### [id number] ####[facility] ([facility])[address] [place], [place] [address]Opffswgz [Moles/Vol]106 mmol/JWollug17-774HiimqkokmbThe University of Toledo Medical CenterComment on above:Performed By: #### [id number] ####[facility] ([facility])[address] [place], [place] [address]BG1 [Moles/Vol]21 mmol/LNormal 21-31UnThe University of Toledo Medical CenterComment on above:Performed By: #### [id number] ####[facility] ([facility])[address] [place], [place] [address]Xobbsehjlc [Mass/Vol]3.69 mg/dLHigh0.60-1.20UnThe University of Toledo Medical CenterComment on above:Performed By: #### [id number] ####[facility] ([facility])[address] [place], [place] [address]XWETJEZBNI FILTRATION RATE ML/MIN/1.73 SQ M.BDRHELNQQ86.3 mL/min/1.73m*2Low>60.0UnThe University of Toledo Medical CenterComment on above:Result Comment: [facility]???s estimated glomerular filtration rate (eGFR) will [...] potential consequences that do not disproportionately affect anyone group of individuals.Performed By: #### [id number] ####[facility] ([facility])[address] [facility] [place] [address]Hjazwxv [Mass/Vol]82 mg/qSJflskl33-096BhrecsoqvxThe University of Toledo Medical CenterComment on above:Performed By: #### [id number] ####[facility] ([facility])[address] [facility] [place], [place] [address]Adpoxmlfa [Moles/Vol]5.1 mmol/LNormal3.5-5.1UnThe University of Toledo Medical CenterComment on above:Performed By: #### [id number] ####[facility] ([facility] [place] [address] Sodium [Moles/Vol]135 mmol/FCmc203-508MwbhsfjoaoThe University of Toledo Medical CenterComment on above:Performed By: #### [id number] ####[facility] ([facility] [facility] [place] [place] [address]Wmux nitrogen [Mass/Vol]85 mg/dLHigh7-25UnThe University of Toledo Medical CenterComment on above:Performed By: #### [id number] ####[facility] ([facility])[address] [facility] [place] [address]BNQU NITROGEN/CREATININE (MASS RATIO) IN SER/PLAS23.0NormalUniversMercy HospitalComment on above: Performed By: #### [id number] ####[facility] ([facility] [place], [place] [address]KUO WITH AUTO DIFFERENTIALon 90-57-2790Kytyoxnzylo distribution width (RBC) [Ratio]16.5 %High11.5-15.0UnThe University of Toledo Medical CenterComment on above:Performed By: #### [id number] #### [facility] ([facility]) [address] [place], [place] [address]GCXHTXRQMYE MEAN CORPUSCULAR HEMOGLOBIN CONCENTRATION (G/DL) BY QDMNZWTGI01.0 g/cYTkzjrq21.0-35.0UnThe University of Toledo Medical CenterComment on above:Performed By: #### [id number] #### [facility] ([facility]) [address] [place] [address]Hexgynkbzk (Bld) [Volume fraction]27.6 %Low36.0-45.0UnThe University of Toledo Medical CenterComment on above:Performed By: #### [id number] #### [facility] ([facility]) [address] [place] [address]Gxrwiwdrls (Bld) [Mass/Vol]9.1 g/dLLow12.0-15.0UnThe University of [facility]edo Medical CenterComment on above:Performed By: #### [id number] #### [facility] ([facility]) [address] [place] [place] [address]YXBMWUYL PLATELET FRACTION %5.6 %Normal0.8-6.3UnThe University of Toledo Medical CenterComment on above:Performed By: #### [id number] #### [facility] ([facility]) [address] [place] [place] [address]WXM (RBC) [Entitic mass]29.5 zwLdozwx65.0-33.0UnThe University of Toledo Medical CenterComment on above:Performed By: #### [id number] #### [facility] ([facility]) [address] [place] [place] [address]CFN (RBC) [Entitic vol]89.6 aGMripsf07.0-98.0UnThe University of Toledo Medical CenterComment on above:Performed By: #### [id number] #### [facility] ([facility]) [address] [place] [address]AORZ (PER 100 WBCS) BY AUTOMATED COUNT0.0 %Eoyavb3ZltvzggewgThe University of Toledo Medical CenterComment on above:Performed By: #### [id number] #### [facility] ([facility]) [address] [place] [address]MRCOTJITK (10*3/UL) IN BLOOD AUTOMATED [id number] 10*3/uLLow 150-400UnThe University of Toledo Medical CenterComment on above:Performed By: #### [id number] #### [facility] ([facility]) [address] [place] [address]IEO (Bld) [#/Vol]3.08 10*6/uLLow3.80-5.00UnThe [facility] of [facility] Medical CenterComment on above:Performed By: #### [id number] #### [facility] ([facility]) [address] [place] [address]ASV (Bld) [#/Vol]4.82 10*3/uLNormal4.00-10.60UnThe [facility] of [facility] Medical CenterComment on above:Performed By: #### [id number] #### [facility] ([facility]) [address] [place], [place] [address]LHHZTV DIFFERENTIALon 19-14-4459EUHTJHKTH (10*3/UL) IN BLOOD BY CALCULATION0.04 10*3/uLNormal0.00-0.20UnThe [facility] of [facility] Medical CenterComment on above:Performed By: #### [id number] ####[facility] ([facility])[address] [place], [place] [address]FKNOCPJMY/100 LEUKOCYTES IN BLOOD BY AUTOMATED COUNT0.8 %Normal0.0-1.0UnThe University of Toledo Medical CenterComment on above: Performed By: #### [id number] ####[facility] ([facility])[address] [place], [place] [address]JOFJTMSMXCA (10*3/UL) IN BLOOD BY CALCULATION0.21 10*3/uL Normal0.00-0.50UnThe [facility] of [facility] Medical CenterComment on above:Performed By: #### [id number] ####[facility] ([facility])[address] [place] [address] EOSINOPHILS/100 LEUKOCYTES IN BLOOD BY AUTOMATED COUNT4.4 %Normal0.0-6.0 [facility] HospitalComment on above:Performed By: #### [id number] ####[facility] ([facility])[address] [place], [place] [address]UADSVTVJ GRANULOCYTES (10*3/UL) IN BLOOD BY CALCULATION0.03 10*3/uLNormal0.00-0.20 [facility] HospitalComment on above:Performed By: #### [id number] ####[facility] ([facility])[address] [place] [address]YDMDYBNC GRANULOCYTES/100 LEUKOCYTES IN BLOOD BY AUTOMATED COUNT0.6 %Normal0.0-1.0 [facility] HospitalComment on above:Performed By: #### [id number] ####[facility] ([facility])[address] [place] [address]RXMWGHAWCQP (10*3/UL) IN BLOOD BY CALCULATION1.64 10*3/uLNormal1.20-4.00UnThe [facility] of [facility] Medical CenterComment on above:Performed By: #### [id number] ####[facility] ([facility])[address] [place] [address]MWCOCYDZXEW/100 LEUKOCYTES IN BLOOD BY AUTOMATED COUNT34.0 %Zuxgbh74.0-45.0UnThe [facility] Comment on above:Performed By: #### [id number] ####[facility] ([facility])[address] [place], [place] [address]GIGFFBADS (10*3/UL) IN BLOOD BY CALCUATION0.52 10*3/uLNormal0.10-1.00UnThe [facility] Medical CenterComment on above: Performed By: #### [id number] ####[facility] ([facility])[address] [place], [place] [address]PWGXGWIOY/100 LEUKOCYTES IN BLOOD BY AUTOMATED COUNT10.8 % Normal5.0-12.0UnThe [facility] of [facility] Medical CenterComment on above:Performed By: #### [id number] ####[facility] ([facility])[address] [place] [address] NEUTROPHILS (10*3/UL) IN BLOOD BY CALCULATION2.4 10*3/uLNormal1.6-7.6UnThe [facility] Medical CenterComment on above:Performed By: #### [id number] ####[facility] ([facility])[address] [place], [place] [address]YHBDVTWQGES/100 LEUKOCYTES IN BLOOD BY AUTOMATED COUNT49.4 %Qrnoau13.0-72.0UnThe [facility] of [facility] Medical CenterComment on above:Performed By: #### [id number] ####[facility] ([facility])[address] [id number] 67-77-108425Uwswnhu: Pain - Adult Goal: Verbalizes/displays adequate comfort [...] clinical goals for the shift include stable vitalsNormalUniversity of Baylor Scott & White Medical Center – SunnyvaleBASIC METABOLIC PANELon 78-09-6846Nvplt gap [Moles/Vol]12 mmol/L Normal7-20UnThe [facility] of [facility] Medical CenterComment on above:Performed By: #### [id number] #### [facility] ([facility]) [address] [place] [address]Fdjpunq [Mass/Vol]8.4 mg/dLLow8.6-10.3UnThe [facility] Medical CenterComment on above:Performed By: #### [id number] #### [facility] ([facility]) [address] [place] [address]Cstqhird [Moles/Vol]107 mmol/BLozhae59-652ZisdifbgpsThe University of Toledo Medical CenterComment on above:Performed By: #### [id number] #### [facility] ([facility]) [address] [place] [address]KH7 [Moles/Vol]22 mmol/JEdevzm32-00SczgtjjrzvThe University of Toledo Medical CenterComment on above:Performed By: #### [id number] #### [facility] ([facility]) [address] [place], [place] [address]Avcgfuuxku [Mass/Vol]3.88 mg/dLHigh0.60-1.20UnThe [facility] Medical CenterComment on above:Performed By: #### [id number] #### [facility] ([facility]) [address] [place], [place] [address]WSHCJZUZOU FILTRATION RATE ML/MIN/1.73 SQ M.GPQRSUPMO44.5 mL/min/1.73m*2Low>60.0UnThe [facility] of [facility]edo Medical CenterComment on above:Result Comment: [facility]???s estimated glomerular filtration rate (eGFR) will [...] potential consequences that do not disproportionately affect anyone group of individuals.Performed By: #### [id number] #### [facility] ([facility]) [address] [place] [place], [place] [address]Vhhrmdo [Mass/Vol]88 mg/tVHjpkzb85-621NssqcufsvpThe University of Toledo Medical CenterComment on above:Performed By: #### [id number] #### [facility] ([facility] [address] [place] [place], [place] [address]Zqpnxblis [Moles/Vol]5.0 mmol/LNormal3.5-5.1UnThe [facility] Medical CenterComment on above:Performed By: #### [id number] #### [facility] ([facility]) [address] [place] [place], [place] [address]Xtsosi [Moles/Vol]136 mmol/BDbidkb269-391QpowujyjiuThe University of Toledo Medical CenterComment on above:Performed By: #### [id number] #### [facility] ([facility] [address] [facility] [place], [place] [address]Qssz nitrogen [Mass/Vol]81 mg/dLHigh7-25UnThe [facility] of [facility] Medical CenterComment on above:Performed By: #### [id number] #### [facility] ([facility] [address] [facility] [place], [place] [address]OUIO NITROGEN/CREATININE (MASS RATIO) IN SER/PLAS20.9Normal [facility] HospitalComment on above:Performed By: #### [id number] #### [facility] ([facility] [address] [place], [place] [address]XAP WITH AUTO DIFFERENTIALon 83-44-1415Kusvbnuwb (Bld) [#/Vol] 0.04 10*3/uLNormal0.00-0.20UnThe [facility] Medical CenterComment on above: Performed By: #### [id number] ####[facility] ([facility])[address] [place], [place] [address]Dgykhshqc/100 WBC (Bld)0.7 %Normal0.0-1.0UnThe [facility] of [facility] Medical CenterComment on above:Performed By: #### [id number] ####[facility] ([facility])[address] [place], [place] [address]Rcpezvizxlj (Bld) [#/Vol]0.24 10*3/uL Normal0.00-0.50UnThe [facility] Medical CenterComment on above:Performed By: #### [id number] ####[facility] ([facility] [place] [address] Eosinophils/100 WBC (Bld)4.4 %Normal0.0-6.0UnThe [facility] Comment on above:Performed By: #### [id number] ####[facility] ([facility])[address] [place], [place] [address]Gziscmvfwam distribution width (RBC) [Ratio]16.4 % High11.5-15.0UnThe [facility] of [facility] Medical CenterComment on above:Performed By: #### [id number] ####[facility] ([facility])[address] [place] [address] ERYTHROCYTE MEAN CORPUSCULAR HEMOGLOBIN CONCENTRATION (G/DL) BY WCIWBHGRI61.0 g/iGJmcfvf82.0-35.0UnThe [facility] Medical CenterComment on above:Performed By: #### [id number] ####[facility] ([facility])[address] [place], [place] [address]Acmxoldetk (Bld) [Volume fraction]28.8 %Low36.0-45.0UnThe [facility] of [facility] Medical CenterComment on above:Performed By: #### [id number] ####[facility] ([facility])[address] [place], [place] [address]Dhgrgrsoth (Bld) [Mass/Vol]9.5 g/dLLow 12.0-15.0UnThe [facility] of [facility] CenterComment on above:Performed By: #### [id number] ####[facility] ([facility])[address] [place], [place] [address]Qprsaesw granulocytes (Bld) [#/Vol]0.02 10*3/uLNormal0.00-0.20UnThe [facility] of [facility] Medical CenterComment on above:Performed By: #### [id number] ####[facility] ([facility])[address] [place], [place] [address]Lovgyrqw granulocytes/100 WBC (Bld)0.4 %Normal0.0-1.0UnThe [facility] of [facility] Medical CenterComment on above:Performed By: #### [id number] ####[facility] ([facility])[address] [place] [address] Lymphocytes (Bld) [#/Vol]1.66 10*3/uLNormal1.20-4.00UnThe University of [facility] Medical CenterComment on above:Performed By: #### [id number] ####[facility] ([facility])[address] [place], [place] [address]Mizvtyqhwyj/100 WBC (Bld)30.6 %Normal 20.0-45.0UnThe University of [facility] Medical CenterComment on above:Performed By: #### [id number] ####[facility] ([facility])[address] [place], [place] [address]VSM (RBC) [Entitic mass]29.1 eyOphcta76.0-33.0UnThe [facility] of [facility] Comment on above:Performed By: #### [id number] ####[facility] ([facility])[address] [place] [address]KAX (RBC) [Entitic vol]88.1 qPDulpeg22.0-98.0 [facility] HospitalComment on above:Performed By: #### [id number] ####[facility] ([facility])[address] [place] [address]Qwzmxtkix (Bld) [#/Vol]0.56 10*3/uLNormal0.10-1.00UnThe University of [facility] Medical CenterComment on above:Performed By: #### [id number] ####[facility] ([facility])[address] [place] [address]Ngqnrivit/100 WBC (Bld)10.3 %Normal5.0-12.0UnThe University of [facility] Medical CenterComment on above:Performed By: #### [id number] ####[facility] ([facility])[address] [place] [address]Tqmpbnhihvo (Bld) [#/Vol] 2.91 10*3/uLNormal1.60-7.60UnThe University of [facility] Medical CenterComment on above: Performed By: #### [id number] ####[facility] ([facility])[address] [place] [address]Ljfzurcpysd/100 WBC (Bld)53.6 %Jikpnc39.0-72.0UnThe University of [facility] Medical CenterComment on above:Performed By: #### [id number] ####[facility] ([facility])[address] [place] [address]GSFH (PER 100 WBCS) BY AUTOMATED COUNT0.0 %Xcbllo9EysytvxpbdThe University of Toledo Medical CenterComment on above: Performed By: #### [id number] ####[facility] ([facility])[address] [place] [address]GHUNDVNIF (10*3/UL) IN BLOOD AUTOMATED [id number] 10*3/uLNormal 150-400UnThe University of [facility] Medical CenterComment on above:Performed By: #### [id number] ####[facility] ([facility])[address] [place] [address]UQE (Bld) [#/Vol]3.27 10*6/uLLow3.80-5.00UnThe [facility] of [facility] Medical CenterComment on above:Performed By: #### [id number] ####[facility] ([facility])[address] [place] [address]ZFV (Bld) [#/Vol]5.43 10*3/uLNormal4.00-10.60UnThe [facility] Medical CenterComment on above:Performed By: #### [id number] ####[facility] ([facility])[address] [place], [place] [address]XRAZKCWTVW WITH MICROSCOPICon 13-18-8620USTPKREPS, TOTAL PRESENCE IN URINENegativeNormalNegative [facility] HospitalComment on above:Performed By: #### [id number] #### [facility] ([facility]) [address] [place], [place] [address]Wrfxkpw (U)ClearNormalClearUnThe [facility] of [facility] Comment on above:Performed By: #### [id number] #### [facility] ([facility]) [address] [place], [place] [address]Nngyo (U)Light-YellowNormalColorless, Yellow, Light-Yellow [facility] HospitalComment on above:Performed By: #### [id number] #### [facility] ([facility]) [address] [place], [place] [address]QPPPLRT (MG/DL) IN URINENormalNormalNormalUniversMercy HospitalComment on above:Performed By: #### [id number] #### [facility] ([facility]) [address] [place], [place] [address]QYYPNJPRHD PRESENCE IN URINENegativeNormalNegativeUnThe University of [facility] Medical CenterComment on above:Performed By: #### [id number] #### [facility] ([facility]) [address] [place], [place] [address]Wzkmnis Ql (U)NegativeNormalNegativeUnThe University of [facility] Medical CenterComment on above:Performed By: #### [id number] #### [facility] ([facility]) [address] [place] [address]AALVFIOSJ ESTERASE PRESENCE IN URINE BY TEST STRIPNegativeNormal NegativeUnThe University of [facility] Medical CenterComment on above:Performed By: #### [id number] #### [facility] ([facility]) [address] [place] [address]RPGSOPE PRESENCE IN URINENegativeNormalNegativeUnThe University of [facility] Medical CenterComment on above:Performed By: #### [id number] #### [facility] ([facility]) [address] [place] [address]bE (U)6.0 [pH]Normal5.0-8.0UnThe [facility] Comment on above:Performed By: #### [id number] #### [facility] ([facility]) [address] [place] [address]Hlpmazu (U) [Mass/Vol]30 mg/dLAbnormalNegativeUnThe University of [facility] Medical CenterComment on above:Performed By: #### [id number] #### [facility] ([facility]) [address] [place] [address]ZYL (#/HPF) IN URINE SEDIMENT0-2NormalNone Seen, 0-2UnThe University of [facility] Medical CenterComment on above:Performed By: #### [id number] #### [facility] ([facility]) [address] [place] [address]Tpocnxgb gravity (U) [Rel density]1.901Cewizy4.010-1.030 [facility] HospitalComment on above:Performed By: #### [id number] #### [facility] ([facility]) [address] [place], [place] [address]UQJINRWV EPITHELIAL CELLS (#/LPF) IN URINE SEDIMENTOccasional NormalNone Seen, Occasional, FewUnThe University of [facility] Medical CenterComment on above:Performed By: #### [id number] #### [facility] ([facility]) [address] [place] [address]QTWLXSAAAMOK (MG/DL) IN URINENormalNormalNormalUniversMercy HospitalComment on above:Performed By: #### [id number] #### [facility] ([facility]) [address] [place] [address]WKF (LEUKOCYTE) (#/HPF) IN URINE SEDIMENT0-2NormalNone Seen, 0-2 [facility] HospitalComment on above:Performed By: #### [id number] #### [facility] ([facility]) [address] [place] [address]63xb [id number] patient is Moderately Stable - Low risk [...] transferring and ambulating with or without assistive devicesNormalUniversMercy HospitalBASIC METABOLIC PANEL on 53-97-7536Fvjhi gap [Moles/Vol]12 mmol/LNormal7-20UnThe [facility] of [facility] Medical CenterComment on above:Performed By: #### [id number] #### [facility] ([facility]) [address] [place] [address]Prkrtgz [Mass/Vol]8.7 mg/dLNormal8.6-10.3UnThe [facility] of [facility] Medical CenterComment on above:Performed By: #### [id number] #### [facility] ([facility]) [address] [place] [address]Wnfihjbf [Moles/Vol]106 mmol/AOgzgqt28-899ZdfpancmwcThe University of Toledo Medical CenterComment on above:Performed By: #### [id number] #### [facility] ([facility]) [address] [place] [address]MU5 [Moles/Vol]22 mmol/ZCopoez95-76ApxogfnlsiThe University of [facility] Medical CenterComment on above:Performed By: #### [id number] #### [facility] ([facility]) [address] [place] [address]Twbwjirofg [Mass/Vol]3.69 mg/dLHigh0.60-1.20UnThe [facility] of [facility] Medical CenterComment on above:Performed By: #### [id number] #### [facility] ([facility]) [address] [place], [place] [address]FBGFAYVJWO FILTRATION RATE ML/MIN/1.73 SQ M.ZTEGJARMZ13.3 mL/min/1.73m*2Low>60.0UnThe University of [facility] Medical CenterComment on above:Result Comment: [facility]???s estimated glomerular filtration rate (eGFR) will [...] potential consequences that do not disproportionately affect anyone group of individuals.Performed By: #### [id number] #### [facility] ([facility]) [address] [place] [address]Qmpwyqe [Mass/Vol]85 mg/mIYdznil02-756FpkaglaqkqThe University of [facility] Medical CenterComment on above:Performed By: #### [id number] #### [facility] ([facility] [address] [facility] [place] [address]Hwafvwjfb [Moles/Vol]5.1 mmol/LNormal3.5-5.1UnThe [facility] of [facility] Medical CenterComment on above:Performed By: #### [id number] #### [facility] ([facility]) [address] [place] [address]Ajmsmx [Moles/Vol]135 mmol/TGpe475-722GcabbpnuovThe University of [facility] Medical CenterComment on above:Performed By: #### [id number] #### [facility] ([facility]) [address] [place], [place] [address]Dbqq nitrogen [Mass/Vol]68 mg/dLHigh7-25UnThe [facility] CenterComment on above:Performed By: #### [id number] #### [facility] ([facility]) [address] [place], [place] [address]EMME NITROGEN/CREATININE (MASS RATIO) IN SER/PLAS18.4Normal [facility] HospitalComment on above:Performed By: #### [id number] #### [facility] ([facility]) [address] [place], [place] [address]YHV WITH AUTO DIFFERENTIALon 48-20-2426Xbmtmcdth (Bld) [#/Vol] 0.04 10*3/uLNormal0.00-0.20UnThe [facility] of [facility] Medical CenterComment on above: Performed By: #### [id number] #### [facility] ([facility]) [address] [place], [place] [address]Ruosvxvkg/100 WBC (Bld)0.7 %Normal0.0-1.0UnThe [facility] of [facility] Medical CenterComment on above:Performed By: #### [id number] #### [facility] ([facility]) [address] [place], [place] [address]Dpxevlilcwe (Bld) [#/Vol]0.27 10*3/uLNormal0.00-0.50UnThe [facility] Medical CenterComment on above:Performed By: #### [id number] #### [facility] ([facility]) [address] [place] [address]Gzzshvwjtcy/100 WBC (Bld)4.9 %Normal0.0-6.0UnThe [facility] of [facility] Medical CenterComment on above:Performed By: #### [id number] #### [facility] ([facility]) [address] [place] [address]Cmtycnjlamb distribution width (RBC) [Ratio]16.4 %High11.5-15.0 [facility] HospitalComment on above:Performed By: #### [id number] #### [facility] ([facility]) [address] [place] [address]FGJFFEZUARO MEAN CORPUSCULAR HEMOGLOBIN CONCENTRATION (G/DL) BY FYCAGQVNQ58.5 g/bUIieiym02.0-35.0UnThe [facility] of [facility] Medical CenterComment on above:Performed By: #### [id number] #### [facility] ([facility]) [address] [place] [address]Badvtmrugy (Bld) [Volume fraction]29.5 %Low36.0-45.0UnThe [facility] of [facility] Medical CenterComment on above:Performed By: #### [id number] #### [facility] ([facility]) [address] [place] [address]Scctvjkejf (Bld) [Mass/Vol]9.6 g/dLLow12.0-15.0UnThe [facility] CenterComment on above:Performed By: #### [id number] #### [facility] ([facility]) [address] [place] [address]Ixcoxope granulocytes (Bld) [#/Vol]0.02 10*3/uLNormal0.00-0.20 [facility] HospitalComment on above:Performed By: #### [id number] #### [facility] ([facility]) [address] [place] [address]Quaraabj granulocytes/100 WBC (Bld)0.4 %Normal0.0-1.0UnThe [facility] of [facility] Medical CenterComment on above:Performed By: #### [id number] #### [facility] ([facility]) [address] [place] [place], [place] [address]Ngtxesatzvz (Bld) [#/Vol]1.76 10*3/uLNormal1.20-4.00UnThe [facility] CenterComment on above:Performed By: #### [id number] #### [facility] ([facility]) [address] [place], [place] [address]Shpbawgnavm/100 WBC (Bld)32.1 %Ezqqzu19.0-45.0UnThe [facility] of [facility] Medical CenterComment on above:Performed By: #### [id number] #### [facility] ([facility]) [address] [place] [place], [place] [address]ZML (RBC) [Entitic mass]29.3 nwLwzpes92.0-33.0UnThe [facility] of [facility] Medical CenterComment on above:Performed By: #### [id number] #### [facility] ([facility] [address] [facility] [place], [place] [address]HWA (RBC) [Entitic vol]89.9 jIKdoter67.0-98.0UnThe [facility] of [facility] Medical CenterComment on above:Performed By: #### [id number] #### [facility] ([facility]) [address] [place] [place], [place] [address]Wypqobnjq (Bld) [#/Vol]0.54 10*3/uLNormal0.10-1.00UnThe [facility] Medical CenterComment on above:Performed By: #### [id number] #### [facility] ([facility]) [address] [facility] [place], [place] [address]Ozqgakzba/100 WBC (Bld)9.8 %Normal5.0-12.0UnThe [facility] of [facility] Medical CenterComment on above:Performed By: #### [id number] #### [facility] ([facility] [address] [facility] [place], [place] [address]Ucqoxijvkly (Bld) [#/Vol]2.86 10*3/uLNormal1.60-7.60UnThe [facility] CenterComment on above:Performed By: #### [id number] #### [facility] ([facility]) [address] [place] [address]Yamszyjkdrj/100 WBC (Bld)52.1 %Jncdkm04.0-72.0UnThe [facility] of [facility] Medical CenterComment on above:Performed By: #### [id number] #### [facility] ([facility]) [address] [place] [address]JVIQ (PER 100 WBCS) BY AUTOMATED COUNT0.0 %Fchoqc6BkrmiekdlhThe University of Toledo Medical CenterComment on above:Performed By: #### [id number] #### [facility] ([facility]) [address] [place] [address]BPMKFHXWN (10*3/UL) IN BLOOD AUTOMATED GCEKG537 10*3/uLNormal 150-400UnThe [facility] CenterComment on above:Performed By: #### [id number] #### [facility] ([facility]) [address] [place] [address]VUH (Bld) [#/Vol]3.28 10*6/uLLow3.80-5.00UnThe [facility] Medical CenterComment on above:Performed By: #### [id number] #### [facility] ([facility]) [address] [address]LHE (Bld) [#/Vol]5.49 10*3/uLNormal4.00-10.60UnThe [facility] Medical CenterComment on above:Performed By: #### [id number] #### [facility] ([facility]) [address] [place] [address]CSDD GLUCOSE METER UNSOLICITED RESULTSon 75-00-6520Olgdsip [Mass/Vol]116 mg/bWGoil47-148MwfmpuiuskThe University of [facility] Medical CenterComment on above:Order Comment: Waived Testing in the ED is performed under the ED CLIA certificate #[id number].Result Comment: uqnfebp9Wbspehflc By: #### [id number] ####[facility] [place], [place] [address]Nvruinw [Mass/Vol]130 mg/zYFncm62-581YcvejxbayyThe University of [facility] Medical CenterComment on above:Order Comment: Waived Testing in the ED is performed under the ED CLIA certificate #[id number].Result Comment: kecxxho4Tcbjnfscw By: #### [id number] #### [facility] ([facility]) [address] [place], [place] [address]Ojnopne [Mass/Vol]114 mg/sCOmbm08-240GvrwymizxwThe University of [facility] Medical CenterComment on above:Order Comment: Waived Testing in the ED is performed under the ED CLIA certificate #[id number].Result Comment: [email or web address] Performed By: #### [id number] ####[facility] ([facility])[address] [place], [place] [address]rr 56-91-592896Okw patient is Moderately Stable - Low risk of patient condition declining or worsening The patient's goals for the shift include Comfort, rest The clinical goals for the shift include Stable vitals and labs, comfort, rest, safetyNormalUniversity of Baylor Scott & White Medical Center – SunnyvaleBASIC METABOLIC PANELon 35-87-1773Npqio gap [Moles/Vol]11 mmol/LNormal7-20UnThe [facility] CenterComment on above:Performed By: #### [id number] #### [facility] ([facility]) [address] [place], [place] [address]Uapeszp [Mass/Vol]8.6 mg/dLNormal8.6-10.3UnThe [facility] CenterComment on above:Performed By: #### [id number] #### [facility] ([facility]) [address] [place], [place] [address]Ebdfruji [Moles/Vol]106 mmol/PHkmviy01-768TwgrlvfypiThe University of [facility] Medical CenterComment on above:Performed By: #### [id number] #### [facility] ([facility]) [address] [place], [place] [address]BV7 [Moles/Vol]23 mmol/UZcntrb23-73QjftszmkvnThe University of [facility] Medical CenterComment on above:Performed By: #### [id number] #### [facility] ([facility]) [address] [place] [address]Lfvstqrjxk [Mass/Vol]3.61 mg/dLHigh0.60-1.20UnThe [facility] CenterComment on above:Performed By: #### [id number] #### [facility] ([facility]) [address] [place] [address]KNMUVSNORH FILTRATION RATE ML/MIN/1.73 SQ M.TAKGWMBWI19.6 mL/min/1.73m*2Low>60.0UnThe [facility] Medical CenterComment on above:Result Comment: [facility]???s estimated glomerular filtration rate (eGFR) will [...] potential consequences that do not disproportionately affect anyone group of individuals.Performed By: #### [id number] #### [facility] ([facility]) [address] [place] [address]Itmcaxf [Mass/Vol]91 mg/wLObwouf77-904VcltmvdvwdThe University of [facility] Medical CenterComment on above:Performed By: #### [id number] #### [facility] ([facility]) [address] [place] [address]Dxammssvd [Moles/Vol]5.0 mmol/LNormal3.5-5.1UnThe [facility] CenterComment on above:Performed By: #### [id number] #### [facility] ([facility] [address] [place] [address]Sfrkjy [Moles/Vol]135 mmol/QMju047-942PxfatwhzbsThe University of [facility] Medical CenterComment on above:Performed By: #### [id number] #### [facility] ([facility]) [address] [place] [address]Ugpo nitrogen [Mass/Vol]61 mg/dLHigh7-25UnThe [facility] CenterComment on above:Performed By: #### [id number] #### [facility] ([facility] [address] [place] [address]ITMA NITROGEN/CREATININE (MASS RATIO) IN SER/PLAS16.9Normal [facility] HospitalComment on above:Performed By: #### [id number] #### [facility] ([facility] [address] [place] [address]VIX WITH AUTO DIFFERENTIALon 30-72-0475Sxodzriwj (Bld) [#/Vol] 0.02 10*3/uLNormal0.00-0.20UnThe [facility] CenterComment on above: Performed By: #### [id number] ####[facility] ([facility])[address] [place] [address]Onlulesax/100 WBC (Bld)0.3 %Normal0.0-1.0UnThe [facility] CenterComment on above:Performed By: #### [id number] ####[facility] ([facility])[address] [place], [place] [address]Cfzxcebiicb (Bld) [#/Vol]0.21 10*3/uL Normal0.00-0.50UnThe [facility] CenterComment on above:Performed By: #### [id number] ####[facility] ([facility])[address] [place] [address] Eosinophils/100 WBC (Bld)3.3 %Normal0.0-6.0UnThe [facility] Comment on above:Performed By: #### [id number] ####[facility] ([facility])[address] [place], [place] [address]Xrjmkdgqdrp distribution width (RBC) [Ratio]16.3 % High11.5-15.0UnThe [facility] CenterComment on above:Performed By: #### [id number] ####[facility] ([facility])[address] [place] [address] ERYTHROCYTE MEAN CORPUSCULAR HEMOGLOBIN CONCENTRATION (G/DL) BY DJKZDSIOF44.0 g/gEPtvmzv90.0-35.0UnThe [facility] CenterComment on above:Performed By: #### [id number] ####[facility] ([facility])[address] [place] [address]Wikdlxpupd (Bld) [Volume fraction]29.7 %Low36.0-45.0UnThe [facility] CenterComment on above:Performed By: #### [id number] ####[facility] [place], [place] [address]Wdfxxmfwoe (Bld) [Mass/Vol]9.8 g/dLLow 12.0-15.0UnThe [facility] CenterComment on above:Performed By: #### [id number] ####[facility] ([facility])[address] [place], [place] [address]Ihjabtvd granulocytes (Bld) [#/Vol]0.02 10*3/uLNormal0.00-0.20UnThe [facility] of [facility] Medical CenterComment on above:Performed By: #### [id number] ####[facility] ([facility])[address] [place], [place] [address]Zxayeadr granulocytes/100 WBC (Bld)0.3 %Normal0.0-1.0UnThe [facility] of [facility] Medical CenterComment on above:Performed By: #### [id number] ####[facility] ([facility])[address] [place] [address] Lymphocytes (Bld) [#/Vol]1.61 10*3/uLNormal1.20-4.00UnThe [facility] CenterComment on above:Performed By: #### [id number] ####[facility] ([facility])[address] [place], [place] [address]Tfnhwlguvzh/100 WBC (Bld)25.6 %Normal 20.0-45.0UnThe [facility] of [facility] Medical CenterComment on above:Performed By: #### [id number] ####[facility] ([facility])[address] [place], [place] [address]DSG (RBC) [Entitic mass]29.3 zbBluokc39.0-33.0UnThe [facility] Comment on above:Performed By: #### [id number] ####[facility] ([facility])[address] [place] [address]CLV (RBC) [Entitic vol]88.7 kQGjdaxl36.0-98.0 [facility] HospitalComment [facility]:Performed By: #### [id number] ####[facility] ([facility])[address] [place] [address]Hftyxxoiz (Bld) [#/Vol]0.58 10*3/uLNormal0.10-1.00UnThe [facility] of [facility] Medical CenterComment on above:Performed By: #### [id number] ####[facility] ([facility])[address] [place] [address]Vkeesaklc/100 WBC (Bld)9.2 %Normal5.0-12.0UnThe [facility] of [facility] Medical CenterComment on above:Performed By: #### [id number] ####[facility] ([facility] [place] [address]Gnocigejyot (Bld) [#/Vol] 3.85 10*3/uLNormal1.60-7.60UnThe [facility] Medical CenterComment on above: Performed By: #### [id number] ####[facility] ([facility])[address] [place] [address]Sqvzzswghfh/100 WBC (Bld)61.3 %Mkieqt56.0-72.0UnThe [facility] of [facility] Medical CenterComment on above:Performed By: #### [id number] ####[facility] ([facility] [place] [address]JWJG (PER 100 WBCS) BY AUTOMATED COUNT0.0 %Ukzqcz9MnsnpeaygsThe University of Toledo Medical CenterComment on above: Performed By: #### [id number] ####[facility] ([facility] [place] [address]PGZGMKQWO (10*3/UL) IN BLOOD AUTOMATED [id number] 10*3/uLNormal 150-400UnThe [facility] of [facility] Medical CenterComment on above:Performed By: #### [id number] ####[facility] ([facility])[address] [place], [place] [address]MWO (Bld) [#/Vol]3.35 10*6/uLLow3.80-5.00UnThe [facility] of [facility] Medical CenterComment on above:Performed By: #### [id number] ####[facility] ([facility])[address], [place] [address]GNU (Bld) [#/Vol]6.29 10*3/uLNormal4.00-10.60UnThe University of [facility] Medical CenterComment on above:Performed By: #### [id number] ####[facility] [facility] [place], [place] [address]SLZSQKEnw 03-17-2025 CONSULTdischarge planning: to Home with Home Health Care [...] - Patient agreeable to mass referral for C; referrals sent via [facility] system - Patient agreeable to reviewing printed listing of HHC providers so can provide Agency of Choice once accepting HHC providers found discharge barriers: [] need HHC choices, then accepting [] will need insurance precert for any placement from this admission [] NormalUnThe University of Toledo Medical CenterPOCT GLUCOSE METER UNSOLICITED RESULTSon 86-30-8728Hevhzyz [Mass/Vol]121 mg/bZMxym99-046GerdahgactThe University of Toledo Medical CenterComment on above:Order Comment: Waived Testing in the ED is performed under the ED CLIA certificate #[id number].Result Comment: [email or web address] Performed By: #### [id number] #### [facility] ([facility]) [address] [place], [place] [address]Zjamrxf [Mass/Vol]148 mg/bBMlkq37-732OngjgaveplThe University of Toledo Medical CenterComment on above:Order Comment: Waived Testing in the ED is performed under the ED CLIA certificate #[id number].Result Comment: [email or web address] Performed By: #### [id number] #### [facility] ([facility]) [address] [place], [place] [address]Gweffgr [Mass/Vol]161 mg/yWIsnu39-676YhjengxtnxThe University of Toledo Medical CenterComment on above:Order Comment: Waived Testing in the ED is performed under the ED CLIA certificate #[id number].Result Comment: [email or web address] Performed By: #### [id number] #### [facility] ([facility]) [address] [place], [place] [address]NVZBJ METABOLIC PANELon 88-14-8589Yotkr gap [Moles/Vol]10 mmol/L Normal7-20UnThe University of [facility] Medical CenterComment on above:Performed By: #### [id number] ####[facility] ([facility])[address] [place], [place] [address]Xorwaqh [Mass/Vol]8.6 mg/dLNormal8.6-10.3UnThe University of [facility] Medical CenterComment on above:Performed By: #### [id number] ####[facility] ([facility])[address] [place], [place] [address]Vlgbcoux [Moles/Vol]106 mmol/XNnjkks11-579WnykggyompThe University of Toledo Medical CenterComment on above:Performed By: #### [id number] ####[facility] ([facility])[address] [place], [place] [address]WR8 [Moles/Vol]23 mmol/LNormal 21-31UnThe University of [facility] Medical CenterComment on above:Performed By: #### [id number] ####[facility] ([facility])[address] [place], [place] [address]Rhtnbvgemw [Mass/Vol]3.39 mg/dLHigh0.60-1.20UnThe University of [facility] Medical CenterComment on above:Performed By: #### [id number] ####[facility] ([facility])[address] [place] [address]GWUDXPZAXA FILTRATION RATE ML/MIN/1.73 SQ M.KPYDRFZMQ96.6 mL/min/1.73m*2Low>60.0UnThe University of [facility] Medical CenterComment on above:Result Comment: [facility]???s estimated glomerular filtration rate (eGFR) will [...] potential consequences that do not disproportionately affect anyone group of individuals.Performed By: #### [id number] ####[facility] ([facility])[address] [place] [address]Kiebsqj [Mass/Vol]101 mg/pEXket40-143WqszyntyokThe University of [facility]edo Medical CenterComment on above:Performed By: #### [id number] ####[facility] ([facility])[address] [place] [address]Tdvbdumcd [Moles/Vol]4.5 mmol/L Normal3.5-5.1UnThe University of [facility] Medical CenterComment on above:Performed By: #### [id number] ####[facility] ([facility])[address] [place] [address] Sodium [Moles/Vol]134 mmol/XDtm041-986AdersvapevThe University of Toledo Medical CenterComment on above:Performed By: #### [id number] ####[facility] ([facility])[address] [place], [place] [address]Hzin nitrogen [Mass/Vol]53 mg/dLHigh7-25UnThe University of [facility] Medical CenterComment on above:Performed By: #### [id number] ####[facility] ([facility])[address] [facility] [address]XQNM NITROGEN/CREATININE (MASS RATIO) IN SER/PLAS15.6NormalUniversMercy HospitalComment on above: Performed By: #### [id number] ####[facility] ([facility])[address] [place], [place] [address]NSO WITH AUTO DIFFERENTIALon 44-96-1607Bsxfqqfrh (Bld) [#/Vol]0.03 10*3/uLNormal0.00-0.20UnThe University of [facility] Medical CenterComment on above: Performed By: #### [id number] #### [facility] ([facility] [address] [facility] [place] [address]Dndkvzkqw/100 WBC (Bld)0.6 %Normal0.0-1.0UnThe University of [facility] Medical CenterComment on above:Performed By: #### [id number] #### [facility] ([facility] [address] [facility] [place], [place] [address]Rfhjgcovzdd (Bld) [#/Vol]0.21 10*3/uLNormal0.00-0.50UnThe University of [facility] Medical CenterComment on above:Performed By: #### [id number] #### [facility] ([facility]) [address] [place], [place] [address]Apvyevbzizl/100 WBC (Bld)4.0 %Normal0.0-6.0UnThe University of [facility] Medical CenterComment on above:Performed By: #### [id number] #### [facility] ([facility]) [address] [place], [place] [address]Kuwkdcpptfa distribution width (RBC) [Ratio]16.3 %High11.5-15.0 [facility] HospitalComment on above:Performed By: #### [id number] #### [facility] ([facility] [address] [facility] [place], [place] [address]FNLSBBROJTM MEAN CORPUSCULAR HEMOGLOBIN CONCENTRATION (G/DL) BY OEPIDEOQX96.9 g/xGFbgkil63.0-35.0UnThe University of [facility] Medical CenterComment on above:Performed By: #### [id number] #### [facility] ([facility]) [address] [place], [place] [address]Mgmdsweiss (Bld) [Volume fraction]31.6 %Low36.0-45.0UnThe University of [facility] Medical CenterComment on above:Performed By: #### [id number] #### [facility] ([facility]) [address] [place], [place] [address]Oddifmwlkh (Bld) [Mass/Vol]10.4 g/dLLow12.0-15.0UnThe University of [facility] Medical CenterComment on above:Performed By: #### [id number] #### [facility] ([facility]) [address] [place], [place] [address]Bjlscdgz granulocytes (Bld) [#/Vol]0.01 10*3/uLNormal0.00-0.20 [facility] HospitalComment on above:Performed By: #### [id number] #### [facility] ([facility]) [address] [place], [place] [address]Jyngbqmq granulocytes/100 WBC (Bld)0.2 %Normal0.0-1.0UnThe University of [facility] Medical CenterComment on above:Performed By: #### [id number] #### [facility] ([facility]) [address] [place], [place] [address]Zictkkslzgv (Bld) [#/Vol]1.52 10*3/uLNormal1.20-4.00UnThe University of [facility] Medical CenterComment on above:Performed By: #### [id number] #### [facility] ([facility]) [address] [place], [place] [address]Oxojqzblkpf/100 WBC (Bld)28.8 %Rubpap74.0-45.0UnThe University of [facility] Medical CenterComment on above:Performed By: #### [id number] #### [facility] ([facility]) [address] [place], [place] [address]MSJ (RBC) [Entitic mass]29.5 sbZffwtp08.0-33.0UnThe University of [facility] Medical CenterComment on above:Performed By: #### [id number] #### [facility] ([facility]) [address] [place] [address]YVP (RBC) [Entitic vol]89.5 zQWhuawg68.0-98.0UnThe [facility] of [facility] Medical CenterComment on above:Performed By: #### [id number] #### [facility] ([facility]) [address] [place] [place] [address]Mxbhugkcf (Bld) [#/Vol]0.53 10*3/uLNormal0.10-1.00UnThe [facility] of [facility] Medical CenterComment on above:Performed By: #### [id number] #### [facility] ([facility]) [address] [place] [address]Oobzyywov/100 WBC (Bld)10.0 %Normal5.0-12.0UnThe [facility] of [facility] Medical CenterComment on above:Performed By: #### [id number] #### [facility] ([facility]) [address] [place] [place] [address]Yxgyhkcftnr (Bld) [#/Vol]2.98 10*3/uLNormal1.60-7.60UnThe [facility] of [facility] Medical CenterComment on above:Performed By: #### [id number] #### [facility] ([facility]) [address] [place] [address]Ulvmlxgvtzn/100 WBC (Bld)56.4 %Ssmrnk55.0-72.0UnThe [facility] of [facility] Medical CenterComment on above:Performed By: #### [id number] #### [facility] ([facility]) [address] [facility] [place], [place] [address]CRUO (PER 100 WBCS) BY AUTOMATED COUNT0.0 %Ybzgzp2QnjqsrwvwxThe University of [facility] Medical CenterComment on above:Performed By: #### [id number] #### [facility] ([facility]) [address] [place] [place], [place] [address]QKEBYMBBH (10*3/UL) IN BLOOD AUTOMATED [id number] 10*3/uLNormal 150-400UnThe [facility] of [facility] Medical CenterComment on above:Performed By: #### [id number] #### [facility] [address] [place] [address]HVB (Bld) [#/Vol]3.53 10*6/uLLow3.80-5.00UnThe [facility] of [facility] Medical CenterComment on above:Performed By: #### [id number] #### [facility] (AKER) [address] [place] [address]YDT (Bld) [#/Vol]5.28 10*3/uLNormal4.00-10.60UnThe [facility] of [facility] Medical CenterComment on above:Performed By: #### [id number] #### [facility] ([facility]) [address] [place] [address]AGED GLUCOSE METER UNSOLICITED RESULTSon 34-02-4913Ruhwhqc [Mass/Vol]102 mg/bQIkhwfv16-194PwiemqxyyvThe University of Tol[facility] Medical CenterComment on above:Order Comment: Waived Testing in the ED is performed under the ED CLIA certificate #[id number].Result Comment: [email or web address] By: #### [id number] ####[facility] ([facility])[address] [place], [place] [address]Fkecfgr [Mass/Vol]95 mg/bFDccnxe76-759OlejtjcakzThe University of [facility] Medical CenterComment on above:Order Comment: Waived Testing in the ED is performed under the ED CLIA certificate #[id number].Result Comment: [email or web address] By: #### [id number] #### [facility] ([facility]) [address] [place], [place] [address]Bnnboro [Mass/Vol]130 mg/cDDlff57-113BjujgjqiitThe University of [facility] Medical CenterComment on above:Order Comment: Waived Testing in the ED is performed under the ED CLIA certificate #[id number].Result Comment: astoneking Performed By: #### [id number] ####[facility] ([facility])[address] [place], [place] [address]Ychhsyf [Mass/Vol]102 mg/vYZpkyph24-583LouvpqpmhkThe University of [facility] Medical CenterComment on above:Order Comment: Waived Testing in the ED is performed under the ED CLIA certificate #[id number].Result Comment: astoneking Performed By: #### [id number] ####[facility] ([facility])[address] [place], [place] [address]NOSVG METABOLIC PANELon 59-74-5682Zgihj gap [Moles/Vol]10 mmol/LNormal7-20UnThe [facility] of [facility] Medical CenterComment on above:Performed By: #### [id number] #### [facility] ([facility]) [address] [place] [place], [place] [address]Avjjqlk [Mass/Vol]8.9 mg/dLNormal8.6-10.3UnThe [facility] Medical CenterComment on above:Performed By: #### [id number] #### [facility] ([facility]) [address] [place] [place], [place] [address]Ilnvdspu [Moles/Vol]104 mmol/YXdjgez92-486DrgogupwmrThe University of [facility] Medical CenterComment on above:Performed By: #### [id number] #### [facility] ([facility]) [address] [place] [place], [place] [address]XI4 [Moles/Vol]24 mmol/FRzbywz13-38UqvxwiifkeThe University of [facility] Medical CenterComment on above:Performed By: #### [id number] #### [facility] ([facility]) [address] [place], [place] [address]Kuxofquwuo [Mass/Vol]3.21 mg/dLHigh0.60-1.20UnThe [facility] Medical CenterComment on above:Performed By: #### [id number] #### [facility] ([facility]) [address] [place], [place] [address]GBHXEINVGE FILTRATION RATE ML/MIN/1.73 SQ M.IZXRJVXHI01.5 mL/min/1.73m*2Low>60.0UnThe [facility] of [facility] Medical CenterComment on above:Result Comment: [facility]???s estimated glomerular filtration rate (eGFR) will [...] potential consequences that do not disproportionately affect anyone group of individuals.Performed By: #### [id number] #### [facility] ([facility]) [address] [place] [address]Wbjlpdz [Mass/Vol]103 mg/sCYjca71-837ZsktfpmuylThe University of [facility] Medical CenterComment on above:Performed By: #### [id number] #### [facility] ([facility]) [address] [place] [address]Wxpsmsgaq [Moles/Vol]4.7 mmol/LNormal3.5-5.1UnThe [facility] CenterComment on above:Performed By: #### [id number] #### [facility] ([facility]) [address] [place] [address]Wcqczq [Moles/Vol]133 mmol/OCea499-365JharxgyzsdThe University of [facility] Medical CenterComment on above:Performed By: #### [id number] #### [facility] ([facility]) [address] [place], [place] [address]Mikk nitrogen [Mass/Vol]45 mg/dLHigh7-25UnThe [facility] Medical CenterComment on above:Performed By: #### [id number] #### [facility] ([facility]) [address] [place], [place] [address]AQLS NITROGEN/CREATININE (MASS RATIO) IN SER/PLAS14.0Normal [facility] HospitalComment on above:Performed By: #### [id number] #### [facility] ([facility]) [address] [place], [place] [address]QHJ WITH AUTO DIFFERENTIALon 38-63-2763Yqfkxmlgd (Bld) [#/Vol] 0.05 10*3/uLNormal0.00-0.20UnThe [facility] Medical CenterComment on above: Performed By: #### [id number] #### [facility] ([facility]) [address] [place] [address]Frmwrcaye/100 WBC (Bld)0.8 %Normal0.0-1.0UnThe [facility] of [facility] Medical CenterComment on above:Performed By: #### [id number] #### [facility] ([facility]) [address] [place] [address]Amaoewxckjt (Bld) [#/Vol]0.26 10*3/uLNormal0.00-0.50UnThe [facility] Medical CenterComment on above:Performed By: #### [id number] #### [facility] ([facility]) [address] [place] [place], [place] [address]Eyfezjaimxr/100 WBC (Bld)4.1 %Normal0.0-6.0UnThe [facility] of [facility] Medical CenterComment on above:Performed By: #### [id number] #### [facility] ([facility]) [address] [place], [place] [address]Srqsbeazbun distribution width (RBC) [Ratio]16.1 %High11.5-15.0 [facility] HospitalComment on above:Performed By: #### [id number] #### [facility] ([facility]) [address] [place], [place] [address]BDDTVKVVPCD MEAN CORPUSCULAR HEMOGLOBIN CONCENTRATION (G/DL) BY CJHBWYFIY03.8 g/bVXfchhc69.0-35.0UnThe [facility] of [facility] Medical CenterComment on above:Performed By: #### [id number] #### [facility] ([facility]) [address] [place] [place], [place] [address]Nxgatkimbq (Bld) [Volume fraction]34.5 %Low36.0-45.0UnThe [facility] of [facility] Medical CenterComment on above:Performed By: #### [id number] #### [facility] ([facility]) [address] [place] [place], [place] [address]Quecrflwlx (Bld) [Mass/Vol]11.3 g/dLLow12.0-15.0UnThe [facility] Medical CenterComment on above:Performed By: #### [id number] #### [facility] ([facility] [address] [facility] [place], [place] [address]Safcnnzt granulocytes (Bld) [#/Vol]0.02 10*3/uLNormal0.00-0.20 [facility] HospitalComment on above:Performed By: #### [id number] #### [facility] ([facility] [address] [facility] [place], [place] [address]Csgmvpbv granulocytes/100 WBC (Bld)0.3 %Normal0.0-1.0UnThe [facility] of [facility] Medical CenterComment on above:Performed By: #### [id number] #### [facility] ([facility]) [address] [place], [place] [address]Adzkqyvilek (Bld) [#/Vol]1.80 10*3/uLNormal1.20-4.00UnThe [facility] CenterComment on above:Performed By: #### [id number] #### [facility] ([facility]) [address] [place], [place] [address]Lopexmtklze/100 WBC (Bld)28.3 %Fcvppp44.0-45.0UnThe [facility] of [facility] Medical CenterComment on above:Performed By: #### [id number] #### [facility] ([facility]) [address] [place], [place] [address]VLJ (RBC) [Entitic mass]29.0 qlQdbmvr00.0-33.0UnThe [facility] Medical CenterComment on above:Performed By: #### [id number] #### [facility] ([facility]) [address] [place], [place] [address]OQA (RBC) [Entitic vol]88.5 uIBssdbk77.0-98.0UnThe [facility] Medical CenterComment on above:Performed By: #### [id number] #### [facility] ([facility]) [address] [place], [place] [address]Ishpysrnx (Bld) [#/Vol]0.67 10*3/uLNormal0.10-1.00UnThe [facility] CenterComment on above:Performed By: #### [id number] #### [facility] ([facility]) [address] [place] [address]Bahdxglrl/100 WBC (Bld)10.5 %Normal5.0-12.0UnThe [facility] Medical CenterComment on above:Performed By: #### [id number] #### [facility] ([facility]) [address] [place] [address]Tnevzsksobc (Bld) [#/Vol]3.57 10*3/uLNormal1.60-7.60UnThe [facility] CenterComment on above:Performed By: #### [id number] #### [facility] ([facility]) [address] [place] [address]Juppautezry/100 WBC (Bld)56.0 %Bdqxzb11.0-72.0UnThe [facility] Medical CenterComment on above:Performed By: #### [id number] #### [facility] ([facility]) [address] [place] [address]QZAI (PER 100 WBCS) BY AUTOMATED COUNT0.0 %Lwocuq8KqexllwustThe University of [facility] Medical CenterComment on above:Performed By: #### [id number] #### [facility] ([facility]) [address] [place] [address]VQUPFFRLV (10*3/UL) IN BLOOD AUTOMATED [id number] 10*3/uLNormal 150-400UnThe [facility] CenterComment on above:Performed By: #### [id number] #### [facility] ([facility]) [address] [place] [address]SPJ (Bld) [#/Vol]3.90 10*6/uLNormal3.80-5.00UnThe [facility] CenterComment on above:Performed By: #### [id number] #### [facility] ([facility] [address] [place] [address]TJI (Bld) [#/Vol]6.37 10*3/uLNormal4.00-10.60UnThe [facility] CenterComment on above:Performed By: #### [id number] #### [facility] ([facility]) [address] [place], [place] [address]LXUV GLUCOSE METER UNSOLICITED RESULTSon 16-52-2416Pnalugm [Mass/Vol]107 mg/cWCyku18-166WqmzpyejdoThe University of [facility] Medical CenterComment on above:Order Comment: Waived Testing in the ED is performed under the ED CLIA certificate #[id number].Result Comment: [email or web address] By: #### [id number] #### [facility] ([facility]) [address] [facility] [place], [place] [address]ui [id number] patient is Moderately Unstable - Medium risk of patient condition declining or worsening The patient's goals for the shift include comfort/rest The clinical goals for the shift include stable vital signsNormalUniversity of Baylor [facility] White Medical Center – SunnyvaleALDOSTERONEon 84-57-1583SEGWFMGIHBK (NG/DL) IN SER/PLAS16.7 ng/dLNormalUniversity Highland District HospitalComment on above:Order Comment: Contacted DEBORA elise and explained the collection process of this test. Retimed for tomorrow morningResult Comment: INTERPRETIVE INFORMATION: Aldosterone, Serum Reference intervals for age [...] reference intervals for this test in the [facility] ([facility]GTel). Performed By: [employer] [address] [place] [address] Emblem Maker: Wilfrid Gomez MD, PhD CLIA Number: [id number] By: #### [id number] #### [facility] [address] [place], [place] [address]LIFKR METABOLIC PANELon 34-15-3583Ajhkh gap [Moles/Vol] 12 mmol/LNormal7-20UnThe [facility] Medical CenterComment on above:Performed By: #### [id number] ####[facility] ([facility] [place] [address] Calcium [Mass/Vol]8.2 mg/dLLow8.6-10.3UnThe University of Toledo Medical CenterComment on above:Performed By: #### [id number] ####[facility] ([facility])[address] [place], [place] [address]Iduxeiun [Moles/Vol]104 mmol/EKjphxn54-481QejzcueuvkThe University of Toledo Medical CenterComment on above:Performed By: #### [id number] ####[facility] ([facility])[address] [place], [place] [address]YV6 [Moles/Vol]21 mmol/LNormal 21-31UnThe University of Tol[facility] Medical CenterComment on above:Performed By: #### [id number] ####[facility] ([facility])[address] [place], [place] [address]Cegbudtbmi [Mass/Vol]3.12 mg/dLHigh0.60-1.20UnThe University of Tol[facility] Medical CenterComment on above:Performed By: #### [id number] ####[facility] ([facility])[address] [facility] [place], [place] [address]NTJQVRMUOU FILTRATION RATE ML/MIN/1.73 SQ M.CTPGIQOUK45.0 mL/min/1.73m*2Low>60.0UnThe University of Toledo Medical CenterComment on above:Result Comment: [facility]???s estimated glomerular filtration rate (eGFR) will [...] potential consequences that do not disproportionately affect anyone group of individuals.Performed By: #### [id number] ####[facility] ([facility])[address] [place] [address]Nqjyhom [Mass/Vol]103 mg/zZXjby35-615BsbtxkyiobThe University of Toledo Medical CenterComment on above:Performed By: #### [id number] ####[facility] ([facility])[address] [place] [address]Dehrtwhkj [Moles/Vol]5.0 mmol/L Normal3.5-5.1UnThe University of Tol[facility] Medical CenterComment on above:Performed By: #### [id number] ####[facility] ([facility])[address] [place] [address] Sodium [Moles/Vol]132 mmol/WYgw322-863TdkxnoxswzThe University of Toledo Medical CenterComment on above:Performed By: #### [id number] ####[facility] ([facility])[address] [place], [place] [address]Shzm nitrogen [Mass/Vol]46 mg/dLHigh7-25UnThe University of Toledo Medical CenterComment on above:Performed By: #### [id number] ####[facility] ([facility])[address] [place] [address]TULX NITROGEN/CREATININE (MASS RATIO) IN SER/PLAS14.7NormalUniversMercy HospitalComment on above: Performed By: #### [id number] ####[facility] ([facility])[address] [place], [place] [address]OFF WITH AUTO DIFFERENTIALon 60-55-5281Sbfkmphmq (Bld) [#/Vol]0.06 10*3/uLNormal0.00-0.20UnThe University of Toledo Medical CenterComment on above: Performed By: #### [id number] ####[facility] ([facility])[address]ANFAIRM[facility]AV[facility] HEALTH SYSTEMCharbelCAR[place], [place] [address]Idtwbjtpd/100 WBC (Bld)1.1 %High0.0-1.0UnThe University of Toledo Medical CenterComment on above:Performed By: #### [id number] ####[facility] ([facility])[address] [place], [place] [address]Sfdswaxtcak (Bld) [#/Vol]0.26 10*3/uL Normal0.00-0.50UnThe University of Toledo Medical CenterComment on above:Performed By: #### [id number] ####[facility] ([facility])[address] [place] [address] Eosinophils/100 WBC (Bld)4.8 %Normal0.0-6.0UnThe [facility] of [facility] Center Comment on above:Performed By: #### [id number] ####[facility] ([facility])[address] [place], [place] [address]Bmxrmxsypax distribution width (RBC) [Ratio]16.4 % High11.5-15.0UnThe University of Toledo Medical CenterComment on above:Performed By: #### [id number] ####[facility] ([facility])[address] [place] [address] ERYTHROCYTE MEAN CORPUSCULAR HEMOGLOBIN CONCENTRATION (G/DL) BY ZDYMBOQNA62.2 g/bRIxlves88.0-35.0UnThe University of Toledo Medical CenterComment on above:Performed By: #### [id number] ####[facility] ([facility])[address] [place], [place] [address]Sslwutxedt (Bld) [Volume fraction]33.9 %Low36.0-45.0UnThe University of Toledo Medical CenterComment on above:Performed By: #### [id number] ####[facility] ([facility])[address] [place], [place] [address]Tezyoblmcx (Bld) [Mass/Vol]10.9 g/dL Low12.0-15.0UnThe University of Toledo Medical CenterComment on above:Performed By: #### [id number] ####[facility] ([facility])[address] [place] [address] Immature granulocytes (Bld) [#/Vol]0.02 10*3/uLNormal0.00-0.20UnThe University of Toledo Medical CenterComment on above:Performed By: #### [id number] ####[facility] [place] [address]Cvzxezeh granulocytes/100 WBC (Bld)0.4 %Normal0.0-1.0UnThe University of Toledo Medical CenterComment on above: Performed By: #### [id number] ####[facility] ([facility])[address] [place], [place] [address]Vodopndyfrw (Bld) [#/Vol]1.46 10*3/uLNormal1.20-4.00 [facility] HospitalComment on above:Performed By: #### [id number] ####[facility] ([facility])[address] [place], [place] [address]Jqbxaxlrxmk/100 WBC (Bld)27.1 %Wmlogp83.0-45.0UnThe University of Toledo Medical CenterComment on above:Performed By: #### [id number] ####[facility] ([facility])[address] [place], [place] [address]XEV (RBC) [Entitic mass]29.2 bsRvkfwr33.0-33.0UnThe University of Toledo Medical CenterComment on above:Performed By: #### [id number] ####[facility] ([facility])[address] [place], [place] [address]RHW (RBC) [Entitic vol] 90.9 rKSyqdvf41.0-98.0UnThe University of Toledo Medical CenterComment on above: Performed By: #### [id number] ####[facility] ([facility])[address] [place], [place] [address]Uymleelzj (Bld) [#/Vol]0.63 10*3/uLNormal0.10-1.00UnThe University of Toledo Medical CenterComment on above:Performed By: #### [id number] ####[facility] ([facility])[address] [place], [place] [address]Bjzrhadxu/100 WBC (Bld) 11.7 %Normal5.0-12.0UnThe University of Toledo Medical CenterComment on above: Performed By: #### [id number] ####[facility] ([facility])[address] [place] [address]Wgkwhxjrvho (Bld) [#/Vol]2.96 10*3/uLNormal1.60-7.60 [facility] HospitalComment on above:Performed By: #### [id number] ####[facility] ([facility])[address] [place] [address]Vqissfwgujp/100 WBC (Bld)54.9 %Hmfqux49.0-72.0UnThe University of Toledo Medical CenterComment on above:Performed By: #### [id number] ####[facility] ([facility])[address] [address]ONUD (PER 100 WBCS) BY AUTOMATED COUNT0.0 %Aozevq0JrsfeylkqcThe University of Toledo Medical CenterComment on above:Performed By: #### [id number] ####[facility] ([facility])[address] [place] [address]OLMWEBIWB (10*3/UL) IN BLOOD AUTOMATED AOQUT709 10*3/iIFnhaue099-689YysgfshjtcThe University of [facility] Medical Center Comment on above:Performed By: #### [id number] ####[facility] ([facility])[address] [place] [address]QVW (Bld) [#/Vol]3.73 10*6/uLLow3.80-5.00UnThe University of Toledo Medical CenterComment on above:Performed By: #### [id number] ####[facility] ([facility])[address] [place] [address]EMW (Bld) [#/Vol]5.39 10*3/uLNormal4.00-10.60UnThe University of Toledo Medical CenterComment on above: Performed By: #### [id number] ####[facility] ([facility])[address] [place] [address]MZUR GLUCOSE METER UNSOLICITED RESULTSon 94-90-2048Nucilkh [Mass/Vol]109 mg/vXQjgf13-405YvsxwcisarThe University of Toledo Medical CenterComment on above:Order Comment: Waived Testing in the ED is performed under the ED CLIA certificate #[id number].Result Comment: [email or web address] By: #### [id number] ####[facility] ([facility])[address] [facility] [place] [address]Ggyjzxh [Mass/Vol]128 mg/mMGlaf01-485QhuzygkpkuThe University of Toledo Medical CenterComment on above:Order Comment: Waived Testing in the ED is performed under the ED CLIA certificate #[id number].Result Comment: [email or web address] By: #### [id number] #### [facility] ([facility]) [address] [place], [place] [address]Lgwogla [Mass/Vol]155 mg/yXOzwj02-480DqbdbmtubrThe University of Toledo Medical CenterComment on above:Order Comment: Waived Testing in the ED is performed under the ED CLIA certificate #[id number].Result Comment: charpel2 Performed By: #### [id number] #### [facility] ([facility]) [address] [place], [place] [address]Fnjnvno [Mass/Vol]109 mg/gDSuht97-199AxbfxemjomMercer County Community HospitalComment on above:Order Comment: Waived Testing in the ED is performed under the ED CLIA certificate #[id number].Result Comment: charpel2 Performed By: #### [id number] #### [facility] ([facility]) [address] [place], [place] [address]NECVH ACTIVITYon 81-57-0915OITHK ACTIVITY4.7 ng/mL/hrNormal [facility] HospitalComment on above:Order Comment: Contacted DEBORA elise and explained the collection process of this test. Retimed for tomorrow morningResult Comment: INTERPRETIVE INFORMATION: Renin Activity Adult, Normal sodium diet: [...] developed and its performance characteristics determined by [facility]. It has not been cleared or approved by the [place] Food and Drug Administration. This test was performed in a CLIA certified laboratory and is intended for clinical purposes. Performed By: [facility] [address] [place] [id number] Emblem Maker: Wilfrid Gomez MD, PhD CLIA Number: [id number] By: #### [id number] ####[facility] ([facility])[address] [place] [address] [id number] patient is Moderately Stable - Low risk [...] needs and coordinate with support and continued care.NormalUnThe [facility] of [facility] Center30The patient is Moderately Stable - Low risk [...] stability and optimal renal function maintained Outcome: ProgressingNormalUniversuniversity hospitals [facility] of [facility]30The patient is Moderately Stable - Low risk of patient condition declining or worsening The patient's goals for the shift include comfort and sleep The clinical goals for the shift include Stable vital signs, no falls, comfort NormalUnThe University of Toledo Medical CenterBASIC METABOLIC PANELon 20-80-2329Wpdbu gap [Moles/Vol]11 mmol/LNormal7-20UnThe University of Tol[facility] Medical CenterComment on above:Performed By: #### [id number] #### [facility] ([facility]) [address] [place], [place] [address]Brvznvh [Mass/Vol]8.8 mg/dLNormal8.6-10.3UnThe University of Toledo Medical CenterComment on above:Performed By: #### [id number] #### [facility] ([facility]) [address] [place], [place] [address]Glfhpqut [Moles/Vol]106 mmol/XMbjywt38-737AjlmwhppozThe University of Toledo Medical CenterComment on above:Performed By: #### [id number] #### [facility] ([facility]) [address] [place], [place] [address]BN5 [Moles/Vol]25 mmol/ILsoqya68-52ZtpcconxtwThe University of Toledo Medical CenterComment on above:Performed By: #### [id number] #### [facility] ([facility]) [address] [place] [address]Xricwypdzq [Mass/Vol]2.41 mg/dLHigh0.60-1.20UnThe University of Toledo Medical CenterComment on above:Performed By: #### [id number] #### [facility] ([facility]) [address] [place], [place] [address]RRCXHBNEWE FILTRATION RATE ML/MIN/1.73 SQ M.SBGFEKIUN59.4 mL/min/1.73m*2Low>60.0UnThe University of Toledo Medical CenterComment on above:Result Comment: [facility]???s estimated glomerular filtration rate (eGFR) will [...] potential consequences that do not disproportionately affect anyone group of individuals.Performed By: #### [id number] #### [facility] ([facility]) [address] [place], [place] [address]Plofvxd [Mass/Vol]82 mg/pXQrjdmh89-201FtacxdrmqyThe University of Toledo Medical CenterComment on above:Performed By: #### [id number] #### [facility] ([facility]) [address] [place] [address]Ijfrkcsfy [Moles/Vol]3.9 mmol/LNormal3.5-5.1UnThe University of [facility] Medical CenterComment on above:Performed By: #### [id number] #### [facility] ([facility]) [address] [place], [place] [address]Mmzyji [Moles/Vol]138 mmol/SXvmikl402-787YvkctauvyiThe University of Toledo Medical CenterComment on above:Performed By: #### [id number] #### [facility] ([facility]) [address] [facility] [place], [place] [address]Qmim nitrogen [Mass/Vol]38 mg/dLHigh7-25UnThe University of Toledo Medical CenterComment on above:Performed By: #### [id number] #### [facility] ([facility]) [address] [facility] [place], [place] [address]AQFK NITROGEN/CREATININE (MASS RATIO) IN SER/PLAS15.8Normal [facility] HospitalComment on above:Performed By: #### [id number] #### [facility] ([facility]) [address] [place], [place] [address]AJP WITH AUTO DIFFERENTIALon 91-07-9302Luxjoqqny (Bld) [#/Vol] 0.05 10*3/uLNormal0.00-0.20UnThe University of Tol[facility] Medical CenterComment on above: Performed By: #### [id number] #### [facility] ([facility]) [address] [place], [place] [address]Dnmmzzxcv/100 WBC (Bld)1.0 %Normal0.0-1.0UnThe University of Tol[facility] Medical CenterComment on above:Performed By: #### [id number] #### [facility] ([facility]) [address] [facility] [place], [place] [address]Eubilolvbmt (Bld) [#/Vol]0.14 10*3/uLNormal0.00-0.50UnThe University of [facility] Medical CenterComment on above:Performed By: #### [id number] #### [facility] ([facility]) [address] [place], [place] [address]Kxhcayblplm/100 WBC (Bld)2.7 %Normal0.0-6.0UnThe University of [facility] Medical CenterComment on above:Performed By: #### [id number] #### [facility] ([facility]) [address] [facility] [place], [place] [address]Nmtqtqgbwek distribution width (RBC) [Ratio]16.6 %High11.5-15.0 [facility] HospitalComment on above:Performed By: #### [id number] #### [facility] [address] [place] [address]UNXITZFKTUG MEAN CORPUSCULAR HEMOGLOBIN CONCENTRATION (G/DL) BY GZABDRNMI24.4 g/iXSpdyej15.0-35.0UnThe University of [facility] Medical CenterComment on above:Performed By: #### [id number] #### [facility] ([facility]) [address] [place] [address]Blhxsyplrx (Bld) [Volume fraction]34.9 %Low36.0-45.0UnThe University of Toledo Medical CenterComment on above:Performed By: #### [id number] #### [facility] ([facility]) [address] [place] [address]Uqkbvuqqbm (Bld) [Mass/Vol]11.3 g/dLLow12.0-15.0UnThe University of [facility] Medical CenterComment on above:Performed By: #### [id number] #### [facility] ([facility]) [address] [place] [address]Iwwvbugz granulocytes (Bld) [#/Vol]0.01 10*3/uLNormal0.00-0.20 [facility] HospitalComment on above:Performed By: #### [id number] #### [facility] ([facility]) [address] [place] [address]Guqthbox granulocytes/100 WBC (Bld)0.2 %Normal0.0-1.0UnThe University of [facility] Medical CenterComment on above:Performed By: #### [id number] #### [facility] ([facility]) [address] [place] [address]Kllvdrfuzqr (Bld) [#/Vol]1.51 10*3/uLNormal1.20-4.00UnThe University of [facility] Medical CenterComment on above:Performed By: #### [id number] #### [facility] ([facility]) [address] [place] [address]Jcjofyzlcns/100 WBC (Bld)28.8 %Vcumlg84.0-45.0UnThe University of Toledo Medical CenterComment on above:Performed By: #### [id number] #### [facility] ([facility]) [address] [place] [address]ECQ (RBC) [Entitic mass]29.6 raHhfksb91.0-33.0UnThe University of Tol[facility] Medical CenterComment on above:Performed By: #### [id number] #### [facility] ([facility]) [address] [place] [address]NJD (RBC) [Entitic vol]91.4 sSLfnuxu25.0-98.0UnThe University of [facility] Medical CenterComment on above:Performed By: #### [id number] #### [facility] ([facility]) [address] [place] [address]Rangklnqy (Bld) [#/Vol]0.71 10*3/uLNormal0.10-1.00UnThe [facility] of [facility] Medical CenterComment on above:Performed By: #### [id number] #### [facility] ([facility]) [address] [place], [place] [address]Bsvnpabkz/100 WBC (Bld)13.5 %High5.0-12.0UnThe [facility] of [facility] Medical CenterComment on above:Performed By: #### [id number] #### [facility] ([facility]) [address] [place] [address]Yokurrjynxw (Bld) [#/Vol]2.82 10*3/uLNormal1.60-7.60UnThe [facility] of [facility] Medical CenterComment on above:Performed By: #### [id number] #### [facility] ([facility]) [address] [place] [place] [address]Akpynrxmsov/100 WBC (Bld)53.8 %Uqobck00.0-72.0UnThe [facility] of [facility] Medical CenterComment on above:Performed By: #### [id number] #### [facility] ([facility]) [address] [place] [address]RXDF (PER 100 WBCS) BY AUTOMATED COUNT0.0 %Czflyg3EegswbhascThe University of Toledo Medical CenterComment on above:Performed By: #### [id number] #### [facility] ([facility] [address] [facility] [place], [place] [address]RRMKHJKUS (10*3/UL) IN BLOOD AUTOMATED [id number] 10*3/uLNormal 150-400UnThe University of [facility] Medical CenterComment on above:Performed By: #### [id number] #### [facility] ([facility]) [address] [place], [place] [address]IVT (Bld) [#/Vol]3.82 10*6/uLNormal3.80-5.00UnThe [facility] of [facility] Medical CenterComment on above:Performed By: #### [id number] #### [facility] ([facility]) [address] [place], [place] [address]MAH (Bld) [#/Vol]5.24 10*3/uLNormal4.00-10.60UnThe [facility] of [facility] Medical CenterComment on above:Performed By: #### [id number] #### [facility] ([facility]) [address] [place], [place] [address]GUAGOFGkn 66-18-5147MYIWZYDKcrkjstlpw Consult Note Reason for Consult: NSTEMI, hypertensive emergency HPI: Marleni Dennis is a 74 y.o. female past medical history of CAD with CABG (MAJANO to LAD, LISSETH to PDA, radial graft to OM) 1998 s/p stent to left main LAD and mid circumflex 2016, PVD status post bilateral common iliac stenting, hypertension, renal artery stenosis, history of DVT/PE, CKD stage IV, LEE. Transfer from [facility] for management of NSTEMI. Patient gives [...] shortness of breath. She was taken to [facility] and was found to have high systolic blood pressure of 250. Troponin was 243-->324-->419. In [place] she got 2 doses of hydralazine and was also started on nitro drip with no improvement in the blood pressure and was given IV labetalol and was transferred to [facility] for suspected NSTEMI. CT brain was [...] Pneumovax-23 [pneumococcal 23-cruz ps vaccine], Red dye, Zbrtijg-ooh-bjg reductase inhibitors, and Varenicline Medications Current Outpatient [...] 94 % -- -- 03/13/25 0300 (!) 224 -- -- 81 18 94 % -- -- 03/13/25 0201 (!) 36.1 ???C (97 ???F) Temporal 79 15 [...] Value Ventricular Rate 71 Atrial Rate 71 MI Interval 158 QRS DURATION 100 QT Interval 464 QTC CALCULATION(BAZETT) 504 P [place] 10 R-[place] 2 T Wave [place] 160 Impression Normal (more content not included)...[facility] CONSULTNephrology Consult Note Patient : Marleni Dennis; 74 y.o. Location: 4108/4108-01 Attending: Erickson Cabrera MD Admit Date: 03/13/2025 Hospital Day: 0 Reason for Consult: CKD IV with uncontrolled hypertension. History of Present Illness: Marleni Dennis is a 74 y.o. female who was transferred from [facility] after presenting with weakness after a fall as well as uncontrolled hypertension. She has pertinent past medical history of hypertension secondary to renal artery stenosis, CKD IV, CAD s/p CABG and PCI with stent placement, obstructive sleep apnea. She presented to [place] [facility] after a fall after showering as [...] does not regularly follow up with a charger tester. She says she has a water pill [...] Dose Status apixaban (Eliquis) 2.5 mg tablet 068172 TAKE 1 TABLET BY MOUTH TWICE A DAY FOR 90 DAYS Historical Provider, Active aspirin 81 mg EC tablet [id number] Take 1 tablet every day by oral route. Historical ProviderMD Flag for Review buPROPion (Wellbutrin) 75 mg tablet [id number] Yes Take 75 mg by mouth twice a day. Historical ProviderMD Active carvedilol (Coreg) 12.5 mg tablet [id number] No Take 25 mg by mouth with breakfast and with eveni (more content not included)...NormalMercer County Community HospitalCORTISOLon 39-73-6182WPHKTSPM (UG/DL) IN SER/PLAS8.8 ug/dLNormal6-23 [facility] HospitalComment on above:Performed By: #### [id number] ####[facility] ([facility])[address] [place], [place] [address]VAMQ SENSITIVITY TROPONIN Ion 37-63-4401NP TROPONIN I (NG/L)215 ng/LCritically high<15UnThe University of [facility] Medical CenterComment on above:Performed By: #### [id number] #### [facility] ([facility]) [address] [place], [place] [address]RP TROPONIN I (NG/L)223 ng/LCritically high<15UnThe [facility] of [facility] Medical CenterComment on above:Performed By: #### [id number] ####[facility] ([facility])[address] [place], [place] [address]EC TROPONIN I (NG/L)228 ng/LCritically high<15UnThe [facility] of [facility] Medical CenterComment on above: Performed By: #### [id number] #### [facility] ([facility]) [address] [place], [place] [address]IMSCBJZPEpo 60-98-9192Irudoqpqi [Mass/Vol]2.8 mg/dLHigh1.9-2.7 [facility] HospitalComment on above:Performed By: #### [id number] #### [facility] ([facility]) [address] [place], [place] [address]Nphgpzffy [Mass/Vol]1.2 mg/dLLow1.9-2.7UnThe [facility] of [facility] Medical CenterComment on above:Performed By: #### [id number] #### [facility] ([facility]) [address] [place], [place] [address]YZCBEGTQyr 87-05-7374KISWMEXBGjhzvwz blood glucose is 79 mg/dl. Requesting ID band from registration. Orders noted, diet and water provided to patient. Will review BP and pain to patient's right head with on-call provider.NormalUnThe University of Toledo Medical CenterPOCT GLUCOSE METER UNSOLICITED RESULTSon 41-44-7368Vqyxlfd [Mass/Vol]128 mg/dLHigh 70-105UnThe University of [facility] Medical CenterComment on above:Order Comment: Waived Testing in the ED is performed under the ED CLIA certificate #[id number].Result Comment: [email or web address] By: #### [id number] ####[facility] ([facility])[address] [place], [place] [address]Fajajqi [Mass/Vol]133 mg/yMCyzd75-674WhzpgeclynThe University of Toledo Medical CenterComment on above:Order Comment: Waived Testing in the ED is performed under the ED CLIA certificate #[id number].Result Comment: [email or web address] Performed By: #### [id number] ####[facility] ([facility])[address] [place], [place] [address]Thgsfgb [Mass/Vol]172 mg/hTKjdr52-550XsddmnwjatThe University of Toledo Medical CenterComment on above:Order Comment: Waived Testing in the ED is performed under the ED CLIA certificate #[id number].Result Comment: agrunde2 Performed By: #### [id number] ####[facility] ([facility])[address] [place], [place] [address]Vpytxvd [Mass/Vol]136 mg/dVBfow30-407QlslxzjxxzThe University of Toledo Medical CenterComment on above:Order Comment: Waived Testing in the ED is performed under the ED CLIA certificate #[id number].Result Comment: agrunde2 Performed By: #### [id number] #### [facility] ([facility]) [address] [place], [place] [address]Tinhagq [Mass/Vol]81 mg/yZBfrdft82-948VcihjhqmxlThe University of Toledo Medical CenterComment on above:Order Comment: Waived Testing in the ED is performed under the ED CLIA certificate #[id number].Result Comment: charpel2 Performed By: #### [id number] #### [facility] ([facility]AKER) [address] [place], [place] [address]D6, FREEon [id number] (T4) FREE (NG/DL) IN SER/PLAS1.23 ng/dLNormal0.71-1.85UnThe University of Toledo Medical CenterComment on above: Performed By: #### LAB15 #### [facility] ([facility]) [address] [place] [id number] REFLEX TO FT4on [id number] (MIU/L) IN SER/PLAS BY DETECTION LIMIT <= 0.05 MIU/L6.01 mIU/LHigh0.34-5.60UnThe University of Toledo Medical CenterComment on above:Performed By: #### [id number] #### [facility] ([facility]) [address] [place] [id number] (INCLUDES DIFF/PLT)on [id number] (Bld) [#/Vol]0.042 10*3/uLNormal0-200Quest DiagnosticsComment on above:Performed By: #### 7600, 33318, 6399, 23168, 899 #### [facility] [address], [address] [place] [address] Material Specialist: Figueroa Jacques MDBasophils/100 WBC (Bld)0.8 %NormalQuest DiagnosticsComment on above:Performed By: #### 7600, 98104, 6399, 04501, 899 #### [facility] [place] [address] Material Specialist: Figueroa Jacques MDEosinophils (Bld) [#/Vol]0.25 10*3/uLNormal 15-500Quest DiagnosticsComment on above:Performed By: #### 7600, 71509, 6399, 29067, 899 #### [facility] [address], [address] [place] [address] Material Specialist: Figueroa Jacques MDEosinophils/100 WBC (Bld)4.8 %NormalQuest DiagnosticsComment on above:Performed By: #### 7600, 11046, 6399, 17284, 899 #### [facility] [place] [address] Material Specialist: Figueroa Jacques MDErythrocyte distribution width (RBC) [Ratio] 14.8 %Vwgpws87.0-15.0Quest DiagnosticsComment on above:Performed By: #### 7600, 11875, 6399, 62431, 899 #### [facility] [place] [address] Material Specialist: Figueroa Jacques MDHematocrit (Bld) [Volume fraction]36.8 %Normal 35.0-45.0Quest DiagnosticsComment on above:Performed By: #### 7600, 16264, 6399, 87164, 899 #### [facility] [place] [address] Material Specialist: Figueroa Jacques MDHemoglobin (Bld) [Mass/Vol]11.9 g/dLNormal 11.7-15.5Quest DiagnosticsComment on above:Performed By: #### 7600, 96480, 6399, 15927, 899 #### [facility] [place] [address] Material Specialist: Figueroa Jacques MDLymphocytes (Bld) [#/Vol]1.737 10*3/uLNormal 850-3900Quest DiagnosticsComment on above:Performed By: #### 7600, 72828, 6399, 92942, 899 #### [facility] [place] [address] Material Specialist: Figueroa Jacques MDLymphocytes/100 WBC (Bld)33.4 %NormalQuest DiagnosticsComment on above:Performed By: #### 7600, 64212, 6399, 72328, 899 #### [facility] [place] [address] Material Specialist: Figueroa Jacques MDMCH (RBC) [Entitic mass]28.7 qcVcqitl93.0-33.0 [facility]osticsComment on above:Performed By: #### 7600, 80137, 6399, 75347, 899 #### [facility] of [address], [address] [place] [address] Material Specialist: Figueroa CEVALLOSCHC (RBC) [Mass/Vol]32.3 g/zNBtibeu28.0-36.0 [facility]osticsComment on above:Result Comment: For adults, a slight decrease in the calculated MCHC value (in the range of 30 to 32 g/dL) is most likely not clinically significant; however, it should be interpreted with caution in correlation with other red cell parameters and the patient's clinical condition.Performed By: #### 7600, 46600, 6399, 73564, 899 #### [facility] [place] [address] Material Specialist: Figueroa Jacques MDMCV (RBC) [Entitic vol]88.7 eGOoackn90.0-100.0 [facility] DiagnosticsComment on above:Performed By: #### 7600, 87228, 6399, 27844, 899 #### [facility] [place] [address] Material Specialist: Figueroa Jacques MDMonocytes (Bld) [#/Vol]0.51 10*3/uLNormal 200-950Quest DiagnosticsComment on above:Performed By: #### 7600, 85210, 6399, 83876, 899 #### [facility] [place] [address] Material Specialist: Figueroa Jacques MDMonocytes/100 WBC (Bld)9.8 %NormalQuest DiagnosticsComment on above:Performed By: #### 7600, 27525, 6399, 50966, 899 #### [facility] [place] [address] Material Specialist: Figueroa Jacques MDNeutrophils (Bld) [#/Vol]2.662 10*3/uLNormal 1500-7800Quest DiagnosticsComment on above:Performed By: #### 7600, 09669, 6399, 06349, 899 #### [facility] [place] [address], [address] [place] [address] Material Specialist: Figueroa Praterutrophils/100 WBC (Bld)51.2 %NormalQuest DiagnosticsComment on above:Performed By: #### 7600, 75276, 6399, 04680, 899 #### [facility] [place] [address], [address] [place] [address] Material Specialist: Figueroa Jacques MDPlatesanam mean volume (Bld) [Entitic vol]10.6 fLNormal7.5-12.5Quest DiagnosticsComment on above:Performed By: #### 7600, 60953, 6399, 96507, 899 #### [facility] [place] [address], [address] [place] [address] Material Specialist: Figueroa Jacques MDPlatelets (Bld) [#/Vol]205 10*3/uLNormal 140-400Quest DiagnosticsComment on above:Performed By: #### 7600, 29243, 6399, 01933, 899 #### [facility] [place] [address], [address] [place] [address] Material Specialist: Figueroa Jacques MDRBC (Bld) [#/Vol]4.15 10*6/uLNormal3.80-5.10 [facility]osticsComment on above:Performed By: #### 7600, 34336, 6399, 90596, 899 #### [facility] [place] [address], [address] [place] [address] Material Specialist: Figueroa Jacques MDWBC (Bld) [#/Vol]5.2 10*3/uLNormal3.8-10.8 [facility]osticsComment on above:Performed By: #### 7600, 85285, 6399, 02546, 899 #### [facility] [place] [address], [address] [place] [address] Material Specialist: Figueroa Jacques MDCOMPREHENSIVE METABOLIC PANELon 01-02-2025 Albumin [Mass/Vol]3.9 g/dLNormal3.6-5.1Quest DiagnosticsComment on above: Performed By: #### 7600, 47135, 6399, 84915, 899 #### [facility] [address], [address] [place] [address] Material Specialist: Figueroa Jacques MDAlbumin/Globulin [Mass ratio]1.5 {ratio}Normal 1.0-2.5Quest DiagnosticsComment on above:Performed By: #### 7600, 99730, 6399, 32416, 899 #### [facility] [place] [address] Material Specialist: Figueroa Jacques MDALP [Catalytic activity/Vol]45 U/OSbssmb65-349 [facility]osticsComment on above:Performed By: #### 7600, 67875, 6399, 89722, 899 #### [facility] [place] [address] Material Specialist: Figueroa Jacques MDALT [Catalytic activity/Vol]4 U/LLow6-29Quest DiagnosticsComment on above:Performed By: #### 7600, 36338, 6399, 27796, 899 #### [facility] [place] [address] Material Specialist: Figueroa Jacques MDAST [Catalytic activity/Vol]14 U/RNpdsmb41-14 [facility]osticsComment on above:Performed By: #### 7600, 97215, 6399, 80880, 899 #### [facility] [place] [address] Material Specialist: Figueroa Jacques MDBilirubin [Mass/Vol]0.6 mg/dLNormal0.2-1.2 [facility]osticsComment on above:Performed By: #### 7600, 22384, 6399, 55454, 899 #### [facility] [address], [address] [place] [address] Material Specialist: Figueroa Jacques MDCalcium [Mass/Vol]9.2 mg/dLNormal8.6-10.4Quest DiagnosticsComment on above:Performed By: #### 7600, 81050, 6399, 96021, 899 #### [facility] [place] [address] Material Specialist: Figueroa Jacques MDChloride [Moles/Vol]108 mmol/DRyafyf71-149 [facility]osticsComment on above:Performed By: #### 7600, 87367, 6399, 84960, 899 #### [facility] [place] [address] Material Specialist: Figueroa Jacques MDCO2 [Moles/Vol]24 mmol/WQczijk41-53Uzrlj DiagnosticsComment on above:Performed By: #### 7600, 53927, 6399, 29602, 899 #### [facility] [place] [address] Material Specialist: Figueroa OCHOAreatinine [Mass/Vol]2.01 mg/dLHigh0.60-1.00 [facility]osticsComment on above:Performed By: #### 7600, 20980, 6399, 22631, 899 #### [facility] [place] [address] Material Specialist: Figueroa Jacques MDGFR/1.73 sq M.predicted among non-blacks MDRD (S/P/Bld) [Vol rate/Area]25 mL/min/{1.73_m2}Low> OR = 60Quest DiagnosticsComment on above:Performed By: #### 7600, 35226, 6399, 11661, 899 #### [facility] [place] [address] Material Specialist: Figueroa Jacques MDGlobulin (S) [Mass/Vol]2.6 g/dLNormal1.9-3.7 [facility] DiagnosticsComment on above:Performed By: #### 7600, 29030, 6399, 55064, 899 #### [facility] [place] [address] Material Specialist: Figueroa Jacques MDGlucose [Mass/Vol]103 mg/gVNemu85-60Fzsue DiagnosticsComment on above:Result Comment: Fasting reference interval For someone without known diabetes, a glucose value between 100 and 125 mg/dL is consistent with prediabetes and should be confirmed with a follow-up test.Performed By: #### 7600, 07708, 6399, 87037, 899 #### [facility] [place] [address] Material Specialist: Figueroa Jacques MDPotassium [Moles/Vol]4.4 mmol/LNormal3.5-5.3 [facility]osticsComment on above:Performed By: #### 7600, 99788, 6399, 63570, 899 #### [facility] [place] [address] Material Specialist: Figueroa Jacques MDProtein [Mass/Vol]6.5 g/dLNormal6.1-8.1Quest DiagnosticsComment on above:Performed By: #### 7600, 04041, 6399, 90638, 899 #### [facility] [place] [address] Material Specialist: Figueroa Jacques MDSodium [Moles/Vol]141 mmol/TXycgwh326-972Srfte DiagnosticsComment on above:Performed By: #### 7600, 70888, 6399, 05044, 899 #### [facility] [place] [address] Material Specialist: Figueroa Jacques MDUrea nitrogen [Mass/Vol]27 mg/dLHigh7-25Quest DiagnosticsComment on above:Performed By: #### 7600, 66995, 6399, 94246, 899 #### [facility] [address], [address] [place] [address] Material Specialist: Figueroa Jacques MDUrea nitrogen/Creatinine [Mass ratio]13 mg/mg Normal6-22Quest DiagnosticsComment on above:Performed By: #### 7600, 08060, 6399, 48892, 899 #### [facility] [address], [address] [place] [address] Material Specialist: Figueroa Jacques MDLIPID PANEL, STANDARD 72-01-8456Wecpegzrawk [Mass/Vol]138 mg/dLNormal<200Quest DiagnosticsComment on above:Order Comment: FASTING:YES FASTING: YESPerformed By: #### 7600, 24295, 6399, 26690, 899 #### [facility] [address], [address] [place] [address] Material Specialist: Figueroa Jacques MDCholesterol in HDL [Mass/Vol]37 mg/dLLow> OR = 50Quest DiagnosticsComment on above:Order Comment: FASTING:YES FASTING: YESPerformed By: #### 7600, 20275, 6399, 96187, 899 #### [facility] [address], [address] [place] [address] Material Specialist: Figueroa Jacques MDCholesterol in LDL [Mass/Vol]76 mg/dLNormal [facility]osticsComment on above:Order Comment: FASTING:YES FASTING: YESResult Comment: Reference range: <100 Desirable range <100 mg/dL for primary prevention; <70 mg/dL for patients with CHD or diabetic patients with > or = 2 CHD risk factors. LDL-C is now calculated using the Jose calculation, which is a validated novel method providing better accuracy than the Friedewald equation in the estimation of LDL-C. Andres MOODY et al. NICOLE. 2013;310(19): 7317-4244 (http://education.[employer].Ne[employer] Software/faq/GBB734)Performed By: #### 7600, 24711, 6399, 29767, 899 #### [facility] [place] [address] Material Specialist: Figuerao Mcleansteronataliia.total/Cholesterol in HDL [Mass ratio]3.7 {ratio}Normal<5.0Quest DiagnosticsComment on above:Order Comment: FASTING:YES FASTING: YESPerformed By: #### 7600, 21048, 6399, 02475, 899 #### [facility] [place] [address] Material Specialist: Figueroa SILVA HDL CBCLMJBULXL940 mg/dL (calc)Normal<130 [facility]osticsComment on above:Order Comment: FASTING:YES FASTING: YESResult Comment: For patients with diabetes plus 1 major ASCVD risk factor, treating to a non-HDL-C goal of <100 mg/dL (LDL-C of <70 mg/dL) is considered a therapeutic option.Performed By: #### 7600, 35314, 6399, 59170, 899 #### [facility] [place] [address] Material Specialist: Figueroa Jacques MDTriglyceride [Mass/Vol]153 mg/dLHigh<150Quest DiagnosticsComment on above:Order Comment: FASTING:YES FASTING: YESPerformed By: #### 7600, 18611, 6399, 37130, 899 #### [facility] [place] [address] Material Specialist: Figueroa Jacques MDT3, [facility] 30-00-4857Zraf T3 [Mass/Vol]2.7 pg/mLNormal2.3-4.2[facility] DiagnosticsComment on above:Performed By: #### 3020, 60335, %SBCULI, 6399 #### [facility] [place] [address] Material Specialist: Figueroa Jacques MDT4, [facility] 70-58-3237Bpau T4 [Mass/Vol]1.2 ng/dLNormal0.8-1.8Quest DiagnosticsComment on above:Performed By: #### 7600, 59107, 6399, 53564, 899 #### [facility] [address], [address] [place] [address] Material Specialist: Figueroa Bond 79-17-0820TIS Qn3.82 m[IU]/LNormal 0.40-4.50Quest DiagnosticsComment on above:Performed By: #### 3020, 31323, %SBCULI, 6399 #### [facility] [address], [address] [place] [address] Material Specialist: Figueroa Jacques MDLaboratory - Hematology and Cell countson 27-32-1522DrI5q (Bld) [Mass fraction]5 %NOMS HealthcareNo Panel Informationon 39-95-5619XUFL HealthcareAmbulatory Visit Summaryon 37-30-5372Cdytyyxgnh Visit SummaryAmbulatory Visit Summary MARLENI DENNIS Nataliia :1950 Visit Date:11/18/2024 Ambulatory Visit Instructions Your [...] mg Tab) nitroglycerin (nitroglycerin 0.4 mg SubL [place]) pantoprazole (Pantoprazole [address] Tab) pregabalin [...] Alfredo CARDENAS MD Where: [facility] [place] [address] [place] [address]- You Need to Schedule the Following Appointments Follow Up with Alfredo CARDENAS MD, URL When: Where: [facility] [address], [place] [address] [phone] Medications What How Much When Instructions New mirabegron (mirabegron 50 mg oral tablet, extended release) 1 Tablets By Mouth Every day Refills: 11 Pickup at [facility]/pharmacy #[id number] Unchanged apixaban (Eliquis 2.5 mg oral tablet) [...] concerns Unchanged nitroglycerin (nitroglycerin 0.4 mg SubL [place]) Sublingual Every 5 minutes Contact prescribing physician [...] physician if questions or concerns Pharmacy Information [facility]/pharmacy #[id number]: [address], [place] [phone] What How Much When Comments Stop Taking oxybutynin (oxybutynin 10 mg ER Tab) 1 Tablets By Mouth Every day Allergies iodine (Rash) shellfish (Unknown) statins (Unknown) Problems Ongoing - Any problem that you are currently receiving treatment for. 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 Kidney lesion Osteoporosis Urge incontinence Historical - Any problem that you are no longer receiving treatment for. Heart disease Hyperlipidem (more content not included)...[facility] Reminderson 35-38-9698KfgwpgpkjInrxwdxit From: Pati Akins To: EU - Recalls Cardenas; Sent: 11/18/2024 14:29:07 EST Show up: 09/18/2025 14:28:00 EST Subject: MRI of ABD Due Date/Time: 10/13/2025 14:28:00 EST Reminder/Recall Patient is due for ABD MRI w contrast prior to November 2025 appt/ [facility]-9981Cqxmfll Office/Clinic NoteUrology Office/Clinic Note Chief Complaint 6 month f/u [...] when she gets the urge. Otherwise she doesnot typically experience leakage. Practices double void maneuvers. Feels she empties. Reports edemain ankles, thought this was related to another medication she was not but has not had any improvement since stopping it. Advised pt this is a possible SE of anticholinergics. Recommend switching medications. Pt agrees to try this. -D/c Oxybutynin -Start mirabegron 50mg ER qd. Possible SEs discussed. Rx sent to [facility] Neva. -Cont double void maneuvers 3. 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 (Z79.01: MCC (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) On Eliquis. Elevated risk for periop complications in the future. Follow-up With When Contact Information RONALD BEAULIEU, Alfredo Moya, URL [facility] [address], [place] [phone] Additional Instructions: 1 yr w/ MRI Patient Education Mayte Jerez, personally scribed for Dr. Cardenas on 11/18/2024 14:24:00. . Documentation recorded by the scribe, Mayet Vogt, accurately reflects the services(s) I performed and decisions made by me. Authenticated by Dr. Cardenas on 11/18/2024 14:26:13. Problem List/Past Medical History Ongoing 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 Kidney lesion Osteoporosis Urge incontinence Historical Heart disease Hyperlipidemia Hypertension Infarction of heart Procedure/Surgical History Cholecystectomy, Colonoscopy, Procedure on back, Tonsillectomy. Medication (more content not included)...[facility] Comment on above:Result Comment: Electronically Signed By: Alfredo CARDENAS MD\.br\Date and Time Signed: 11/18/24 14:26 EST\.br\Electronically Co-Signed By: Mayte Vogt\.br\Date and Time Co-Signed: 11/18/24 14:24 ESTReminderson 30-73-4920BuhgkozyhFzjxeipkx From: MIGUEL Thomson APRN, Maria Luisa Pritchard To: DARREL Cardenas; Sent: 03/19/2024 15:06:49 EDT Show up: 08/18/2024 15:06:00 EST Subject: Reminder Message Reminder Message MRI abdomen with and without IV contrast for kidney lesion surveillance. Follow- up appointment scheduled September Order for MRI and accompanying paperwork faxed to [facility] Central scheduling today. They will call pt to schedule. Pt is scheduled today at 2pm for MRI and creatinine draw. Will monitor Results in chart for review Results in chart for reviewTrinity Health System West CampusTB CREATININEon 26-66-2097Tjdgunbrvp [Mass/Vol]1.56 mg/dLHigh0.55 - 1.02 mg/dLNOOH HealthcareGFR/1.73 sq M.predicted CKD-EPI (S/P/Bld) [Vol rate/Area]39Low>=60 mL/min/1.73m 2NOMS HealthcareInterpretation and review of laboratory resultsAbnoGeisinger-Lewistown Hospital EGFR-NON AF [id number]>=60 mL/min/1.73m 2NOMS HealthcareCLINISYNCNVETERANS A[facility] [place] Hgtddhnmfg68mr [id number] echo result from 05/10/2024: MD Kari Castellano MA Echo was ok, follow up in 1 year. Patient informed.[facility] HospitalOffice Visiton 84-14-8807Vkends-up [id number] Marleni Dennis 1950 F Date Provider Department Center 04/24/2024 SACHIN KEITH CARD [facility] Family History Problem Relation Age of Onset Coronary artery disease Mother Stroke Mother Coronary artery disease Father Ovarian cancer Sister Family Status - Relation Status Age at Mother Father Sister Level of Service:34249 MI OFFICE/OUTPATIENT ESTABLISHED MOD [facility]24 Urology Office/Clinic NoteUrology Office/Clinic Note Chief Complaint 3 month F/U [...] with voice recognition artificial intelligence software, specifically Picwing, Image Insight and or xkoto. Substitutions may have occurred due to the [...] office visit, tolerating well that bothersome side effects.She does admit to having dry eyes, dry mouth, which she is able to treat symptomatically at this time. Patient states she is no longer wearing a pad, not leaking or having full incontinence episodes at this time. She continues to feel empty after voiding. She is tolerating PVR today 0 -Continue oxybutynin, call for refills Ordered: [id number] Measure Post Void residual urine and/or bladder [...] months for continued monitoring 3. 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) On Eliquis Follow-up With When Contact Information RONALD BEAULIEU, Alfredo R, URL [facility] [address], [place] [phone] Additional Instructions: 6 mos w/ MRI Patient [...] tablet, extended release nitroglycerin 0.4 mg SubL [place], SubLingual, q5min oxybutynin 10 mg ER Tab, [...] virus vaccine, inactivated 07/04/2022 Recorded SARS-CoV-2 (COVID-19) [id number].[id number] 07/04/2022 Recorded influenza virus vaccine, inactivated 06/24/2021 Recorded SARS-CoV-2 (COVID-19) mRNA BNT-162b2 vax 06/24/2021 Recorded 2022-09-26: TPV70 SARS-CoV-2 (COVID-19) mRNA BNT-162b2 vax 11/17/2020 Recorded 2022-09-26: TPV70 SARS-CoV-2 (COVID-19) mRNA BNT-162b2 vax 10/27/2020 Recorded 2022-09-26: TPV70 influenza virus vaccine, inactivated 07/08/2020 Recorded [1] URO- review MRI, start Oxybutynin; RONALD BEAULIEU (more content not included)... [facility] CampusComment on above:Result Comment: Electronically Signed By: MIGUEL Thomson APRN, Maria Luisa Pritchard\.br\Date and Time Signed: 03/19/24 15:09 EDTCBC AUTO DIFFon [id number] #0.1 103/ulNormal0.0-0.1St. [facility] HospitalComment on above:Performed By: #### CBC #### [facility] [address] [address] [address] Aryan PettyBasophils/100 WBC (Bld)1.4 %Normal0.2-2.0The [facility] Comment on above:Performed By: #### CBC #### [facility] [address] [place] [address] Dr. Aryan Loza #0.6 103/ulNormal0.0-0.7The [facility] HospitalComment on above: Performed By: #### CBC #### [facility] [address] [place] [address] Dr. Aryan Bensonosinophils/100 WBC (Bld)7.7 %Critically high0.9-7.0The [facility] HospitalComment on above:Performed By: #### CBC #### [facility] [address] [place] [address] Dr. Aryan Bensonrythrocyte distribution width (RBC) [Ratio]16.4 %Critically high 11.0-15.0The [facility] HospitalComment on above:Performed By: #### CBC #### [facility] [address] [place] [address] Dr. Aryan PettyHematocrit (Bld) [Volume fraction]40.6 %Anlskc80.0-48.0The [facility] HospitalComment on above:Performed By: #### CBC #### [facility] [address] [place] [address] Dr. Aryan PettyHemoglobin (Bld) [Mass/Vol]12.9 g/dGQwwksr83.0-16.0The [facility] HospitalComment on above:Performed By: #### CBC #### [facility] [address] [place] [address] Dr. Aryan Ferrell #0.03 10e3/ulNormal0.00-0.03The [facility] HospitalComment on above:Performed By: #### CBC #### [facility] [address] [place] [address] Dr. Aryan Ferrell %0.4 %Normal0.0-0.5The [facility] HospitalComment on above: Performed By: #### CBC #### [facility] [address] [address] [address] Aryan Vogt #2.6 103/ulNormal1.2-3.8The [facility] HospitalComment on above:Performed By: #### CBC #### [facility] [address] [address] [address] Aryan Cordovahocytes/100 WBC (Bld)35.5 %Pmgcxi95.5-60.0The [facility] HospitalComment on above:Performed By: #### CBC #### [facility] [address] [address] [address] Aryan Monroe DIFF REQNONormalThe [facility] HospitalComment on above: Performed By: #### CBC #### [facility] [address] [place] [address] Dr. Aryan Del Angel (RBC) [Entitic mass]26.5 pgCritically low26.7-34.0The [facility] HospitalComment on above:Performed By: #### CBC #### [facility] [address] [place] [address] Dr. Aryan Booker (RBC) [Mass/Vol]31.8 g/xAIewpgt03.9-35.2The [facility] Medical Centerment on above:Performed By: #### CBC #### [facility] [address] [place] [address] Dr. Aryan Booker (RBC) [Entitic vol]83.5 pFQhfabn74.0-99.0The [facility] HospitalComment on above:Performed By: #### CBC #### [facility] [address] [address] [address] Aryan Sharma #0.7 103/ulNormal0.3-0.8The [facility] HospitalComment on above:Performed By: #### CBC #### [facility] [address] [place] [address] Dr. Aryan Fairchildocytes/100 WBC (Bld)9.9 %Normal1.7-12.0The [facility] Comment on above:Performed By: #### CBC #### [facility] [address] [address] [address] Aryan Tijerina #3.3 103/ulNormal1.4-6.5The [facility] HospitalComment on above:Performed By: #### CBC #### [facility] [address] [address] [address] Aryan Gutierrezutrophils/100 WBC (Bld)45.1 %Awsrxn99.0-75.0The [facility] HospitalComment on above:Performed By: #### CBC #### [facility] [address] [place] [address] Dr. Aryan Louislet mean volume (Bld) [Entitic vol]11.0 fLNormal9.5-13.5The [facility] HospitalComment on above:Performed By: #### CBC #### [facility] [address] [place] [address] Dr. Aryan FrankelT270 103/hcPyoedm617-500Vwu [facility] HospitalComment on above: Performed By: #### CBC #### [facility] [address] [place] [address] Dr. Aryan PettyRBC4.86 106/ulNormal4.20-5.40The [facility] HospitalComment on above:Performed By: #### CBC #### [facility] [address] [place] [address] Dr. Aryan PettyWBC7.4 103/ulNormal4.0-11.0The [facility] HospitalComment on above: Performed By: #### CBC #### [facility] [address] [place] [address] Dr. Aryan PettyLIPID PROFILEon [id number]-HDL RATIO NORMSEE [facility] CampusComment on above:Result Comment: 3.3 - 4.4 LOW RISK 4.4 - 7.1 AVERAGE RISK 7.1 - 11.0 MODERATE RISK >11.0 HIGH RISKPerformed By: #### CMP, LIPID #### [facility] [address] [address] [address] Aryan PettyCholesterol [Mass/Vol]189 mg/dLNormal<=200The [facility] Comment on above:Performed By: #### CMP, LIPID #### [facility] [address] [address] [address] Aryan PettyCholesterol in HDL [Mass/Vol]30 mg/dLCritically exe75-21Lqh [facility] Community HospitalComment on above:Performed By: #### CMP, LIPID #### [facility] [address] [address] [address] Aryan PettyCholesterol in LDL [Mass/Vol]101.6 mg/dLNoDelaware County HospitalComment on above:Performed By: #### CMP, LIPID #### [facility] [address] [place] [address] Dr. Aryan Alexandraestermao.total/Cholesterol in HDL [Mass ratio]6.3 {ratio} NormalThe [facility] HospitalComment on above:Performed By: #### CMP, LIPID #### [facility] [address] [place] [address] Dr. Aryan Armendariz NORMAL> or = 60 mg/dl - LOW CARDIOVASCULAR RISK <40 mg/dl - HIGH CARDIOVASCULAR RISKThe Jewish HospitalComment on above:Performed By: #### CMP, LIPID #### [facility] [address] [place] [address] Dr. Aryan Polo CALC NORMALSEE BELOWNoDelaware County HospitalComment on above:Result Comment: <100 mg/dl OPTIMAL 100 - 129 mg/dl NEAR OR ABOVE OPTIMAL 130 - 159 mg/dl BORDERLINE HIGH 160 - 189 mg/dl HIGH >190 mg/dl VERY HIGH Performed By: #### CMP, LIPID #### [facility] [address] [place] [address] Dr. Aryan PettyTriglyceride [Mass/Vol]287 mg/dLCritically high<=150The [facility] HospitalComment on above:Performed By: #### CMP, LIPID #### [facility] [address] [place] [address] Dr. Yilan ChangVLDL CALC57.4 mg/dLNormalThe [facility] HospitalComment on above: Performed By: #### CMP, LIPID #### [facility] [address] [place] [address] Dr. Aryan Gann 14(COMP METB)on 05-98-8784Jkhnnrr [Mass/Vol]3.6 g/dLNormal 3.4-5.0The [facility] HospitalComment on above:Performed By: #### CMP, LIPID #### [facility] [address] [place] [address] Dr. Aryan PettyAlbumin/Globulin [Mass ratio]0.8 {ratio}NormalThe [facility] HospitalComment on above:Performed By: #### CMP, LIPID #### [facility] [address] [place] [address] Dr. Aryan Ortiz [Catalytic activity/Vol]86 U/DHgpbyz59-644Rzh [facility] HospitalComment on above:Performed By: #### CMP, LIPID #### [facility] [address] [place] [address] Dr. Aryan Acharya [Catalytic activity/Vol]21 U/UNzyqty27-24Wps [facility] HospitalComment on above:Performed By: #### CMP, LIPID #### [facility] [address] [place] [address] Dr. Aryan Reece gap [Moles/Vol]13.1 mmol/LNormalThe [facility] Comment on above:Performed By: #### CMP, LIPID #### [facility] [address] [place] [address] Dr. Aryan Prakash [Catalytic activity/Vol]27 U/VEylmiz08-44Vre [facility] HospitalComment on above:Performed By: #### CMP, LIPID #### [facility] [address] [place] [address] Dr. Aryan PettyBilirubin [Mass/Vol]0.4 mg/dLNormal0.2-1.0The [facility] Comment on above:Performed By: #### CMP, LIPID #### [facility] [address] [place] [address] Dr. Aryan PettyCalcium [Mass/Vol]9.4 mg/dLNormal8.5-10.1The [facility] Comment on above:Performed By: #### CMP, LIPID #### [facility] [address] [address] [address] Aryan PettyChloride [Moles/Vol]103 mmol/QEdwmgv80-969Aoo [facility] Comment on above:Performed By: #### CMP, LIPID #### [facility] [address] [address] [address] Aryan PettyCO2 [Moles/Vol]27.6 mmol/IIklqop05.0-32.0The [facility] Comment on above:Performed By: #### CMP, LIPID #### [facility] [address] [place] [address] Dr. Aryan PettyCreatinine [Mass/Vol]2.21 mg/dLCritically high0.55-1.02The [facility] HospitalComment on above:Performed By: #### CMP, LIPID #### [facility] [address] [place] [address] Dr. Baeza ChangEGFR-AF SLMVUKSG09 mL/min/1.24m0Pytwbsnifc low>=60The [facility] HospitalComment on above:Performed By: #### CMP, LIPID #### [facility] [address] [place] [address] Dr. Aryan BensonGFR-NON AF KBAABKMQ02 mL/min/1.14w2Jdbjljrxuk low>=60The [facility] HospitalComment on above:Performed By: #### CMP, LIPID #### [facility] [address] [place] [address] Dr. Aryan PettyGlobulin (S) [Mass/Vol]4.6 g/dLNormalThe [facility] HospitalComment on above:Performed By: #### CMP, LIPID #### [facility] [address] [place] [address] Dr. Aryan PettyGlucose [Mass/Vol]120 mg/dLCritically jbdq07-981Vgw [facility] HospitalComment on above:Performed By: #### CMP, LIPID #### [facility] [address] [address] [address] Aryan PettyPotassium [Moles/Vol]4.0 mmol/LNormal3.5-5.1The [facility] Comment on above:Performed By: #### CMP, LIPID #### [facility] [address] [address] [address] Aryan PettyProtein [Mass/Vol]8.2 g/dLNormal6.4-8.2[facility] Comment on above:Performed By: #### CMP, LIPID #### [facility] [address] [address] [address] Aryan PettySodium [Moles/Vol]140 mmol/SDpibum169-310ZbtSt. Vincent Hospital Comment on above:Performed By: #### CMP, LIPID #### [facility] [address] [address] [address] Aryan PettyUrea nitrogen [Mass/Vol]29.0 mg/dLCritically high7.0-18.0St. [facility] HospitalComment on above:Performed By: #### CMP, LIPID #### [facility] [address] [address] [address] Aryan Young nitrogen/Creatinine [Mass ratio]13.1 mg/mgNormalThe [facility] HospitalComment on above:Performed By: #### CMP, LIPID #### [facility] [address] [place] [address] Dr. Aryan Washington CAROTID ART BILon [id number] CAROTID ART BILEXAMINATION: US CAROTID ART TEJ HISTORY: Bilateral carotid artery occlusion [...] Electronically authenticated by: TONYA GARCIA Date: 2023-01-10 15:26The [facility] HospitalXR DEXA BONE DENSITYon [id number] DEXA BONE DENSITY EXAMINATION: XR DEXA BONE [...] Electronically authenticated by: TONYA GARCIA Date: 2022-09-07 16:41[facility] HospitalMRI ABDOMEN WO W CONon 77-98-2706HAG ABDOMEN WO W CONEXAM: MRI ABDOMEN WO W CON HISTORY: Kidney [...] Electronically authenticated by: RYLAN HOPKINS Date: 2022-09-01 12:43The [facility] HospitalCREATININE 28-10-3663Bigajplpge [Mass/Vol]2.23 mg/dL Critically high0.55-1.02St. Vincent HospitalComment on above:Performed By: #### CREA ####[facility] [address] [place], [place] [address]Ho. Yilan ChangEGFR-AF BPPVEQKP25 mL/min/1.05h9Syjfqmtgtb low>=60The [facility] HospitalComment on above:Performed By: #### CREA ####[facility] [address] [place], [place] [address]Ks. Yilan ChangEGFR-NON AF TDIBAPDN89 mL/min/1.33g5Lgkxmclgtu low>=60The [facility] HospitalComment on above: Performed By: #### CREA ####[facility] [address] [id number]. Yilan ChangECHOCARDIO M/2D COMPLETEon 03-16-2022 ECHOCARDIO M/2D COMPLETEPatient: MARLENI DENNISGenet Exam Date: 03/16/2022 : 1950 Gender:F Ordering : JOHN LUTHER Admission #: [id number] Family : DR JACK VOGT M.D. Order #: [id number] CLICK HERE TO VIEW EXAM ECHOCARDIOGRAM REPORT [...] by: Sachin Aguilera M.D. on 03/16/2022 at 16:36[facility] HospitalBNUniversity Of [facility] [id number] peptide B (Bld) [Mass/Vol]553.0 pg/mLNormal <=900.0The [facility] HospitalComment on above:Performed By: #### BNP, BMP ####[facility] [address] [address]Dr. Yilan ChangPROF CHEM 8 (BAS METB)on 85-46-5136Cghly gap [Moles/Vol]14.9 mmol/L NormalThe [facility] HospitalComment on above:Performed By: #### BNP, BMP ####[facility] [address] [address]Dr. Yilan ChangCalcium [Mass/Vol]9.1 mg/dLNormal8.5-10.1The [facility] HospitalComment on above:Performed By: #### BNP, BMP ####[facility] [address] [address]Dr. Yilan ChangChloride [Moles/Vol]102 mmol/L Gaabwi28-986Qad [facility] HospitalComment on above:Performed By: #### BNP, BMP ####[facility] [address] [place], [place] [address]Dr. Yilan ChangCO2 [Moles/Vol]27.7 mmol/HDmivap85.0-32.0The [facility] HospitalComment on above:Performed By: #### BNP, BMP ####[facility] [address] [place], [place] [address]Dr. Yilan ChangCreatinine [Mass/Vol]1.80 mg/dL Critically high0.55-1.02The [facility] HospitalComformerly [facility] on above:Performed By: #### BNP, BMP ####[facility] [address] [place], [place] [address]Dr. Yilan ChangEGFR-AF DPSBOMXE71 mL/min/1.24k0Iruvtdbgow low>=60The [facility] on above:Performed By: #### BNP, BMP ####[facility] [address] [place], [place] [address]Dr. Yilan ChangEGFR- NON AF TPRRNQXR52 mL/min/1.34w9Nttbgzgumt low>=60The [facility] HospitalComformerly [facility] on above:Performed By: #### BNP, BMP ####[facility] [address] [place], [place] [address]Dr. Yilan ChangGlucose [Mass/Vol]107 mg/dL Critically qdhw95-583Dqg [facility] on above:Performed By: #### BNP, BMP ####[facility] [address] [place], [place] [address]Dr. Yilan ChangPotassium [Moles/Vol]3.6 mmol/LNormal3.5-5.1The [facility] on above:Performed By: #### BNP, BMP ####[facility] [address] [place], [place] [address]Dr. Yilan ChangSodium [Moles/Vol]141 mmol/OJrqrcr829-642Ovi [facility] on above: Performed By: #### BNP, BMP ####[facility] [address] [place], [place] [address]Dr. Yilan ChangUrea nitrogen [Mass/Vol]33.0 mg/dL Critically high7.0-18.0The [facility] HospitalComment on above:Performed By: #### BNP, BMP ####[facility] [address] [place], [place] [address]Wa. Aryan PettyUrea nitrogen/Creatinine [Mass ratio]18.3 mg/mgNoDelaware County HospitalComment on above:Performed By: #### BNP, BMP ####[facility] [address] [place], [place] [address]Ud. Aryan Washington KIDNEYSon 29-22-6963QR KIDNEYSEXAMINATION: US KIDNEYS HISTORY: Kidney lesion COMPARISON: 03/24/2021 TECHNIQUE: Ultrasound [...] Electronically authenticated by: HENRY WALL Date: 2022-02-22 17:17The [facility] HospitalVC VENOUS REFLUX TEJ LMTon [id number] VENOUS REFLUX TEJ LMT Patient: MARLENI DENNIS Exam Date: 02/16/2022 : 1950 Gender:F Ordering : JOHN LUTHER Admission #: [id number] Family : Order #: [id number] CLICK HERE TO VIEW EXAM RADIOLOGY REPORT [...] proximal SSV. Flow: Mild deep venous reflux. Awning Spreader: Dist/med calf 3.3 mm with 0.3s reflux. [...] Normal. Flow: Mild deep venous reflux noted. Awning Spreader: Mid/medial calf 3.1mm, 2.9s. Dist/med calf 3.1mm, [...] by: Henry Wall MD on 02/16/2022 at 11:49[facility] CAROTID ART BILon 66-71-9545VQ CAROTID ART BILEXAMINATION: US CAROTID ART TEJ HISTORY: Bilateral carotid artery occlusion [...] Electronically authenticated by: TONYA GARCIA Date: 2022-02-04 17:45[facility] WALTER DOP LEG BILon [id number] WALTER DOP LEG BILEXAM: US WALTER DOP LEG TEJ HISTORY: Pain [...] Electronically authenticated by: JERRICA HOLDEN Date: 2022-02-04 16:34The Jewish HospitalBNPon 69-23-9831Qouimqxuyvv peptide B (Bld) [Mass/Vol]620.0 pg/mLNormal<=900.0The [facility] HospitalComment on above:Performed By: #### BNP, BMP, LIPID ####[facility] [address] [id number]. Aryan PettyLIPID PROFILEon [id number]-HDL RATIO NORMSEE BELOWNormal The [facility] HospitalComment on above:Result Comment: 3.3 - 4.4 LOW RISK 4.4 - 7.1 AVERAGE RISK 7.1 - 11.0 MODERATE RISK >11.0 HIGH RISKPerformed By: #### BNP, BMP, LIPID ####[facility] [address] [address]Dr. Aryan PettyCholesterol [Mass/Vol]148 mg/dLNormal<=200The [facility] HospitalComment on above:Performed By: #### BNP, BMP, LIPID ####[facility] [address] [place], [place] [address]Rs. Aryan Petty Cholesterol in HDL [Mass/Vol]25 mg/dLCritically acq96-78PbhSt. Vincent Hospital Comment on above:Performed By: #### BNP, BMP, LIPID ####[facility] [address] [address]Dr. Aryan PettyCholesterol in LDL [Mass/Vol]80.8 mg/dLNormalThe [facility] HospitalComment on above:Performed By: #### BNP, BMP, LIPID ####[facility] [address] [address]Dr. Aryan ChangCholesterol.total/Cholesterol in HDL [Mass ratio]5.9 {ratio}NormalSt. Vincent HospitalComformerly [facility] on above:Performed By: #### BNP, BMP, LIPID ####[facility] [address] [address]Dr. Yilan ChangHDL NORMAL> or = 60 mg/dl - LOW CARDIOVASCULAR RISK <40 mg/dl - HIGH CARDIOVASCULAR RISKThe Jewish HospitalComment on above:Performed By: #### BNP, BMP, LIPID ####[facility] [address] [address]Dr. Yilan ChangLDL CALC NORMALSEE BELOWThe Jewish HospitalComment on above:Result Comment: <100 mg/dl OPTIMAL 100 - 129 mg/dl NEAR OR ABOVE OPTIMAL 130 - 159 mg/dl BORDERLINE HIGH 160 - 189 mg/dl HIGH >190 mg/dl VERY HIGHPerformed By: #### BNP, BMP, LIPID ####[facility] [address] [place], [place] [address]Dr. Yilan ChangTriglyceride [Mass/Vol]211 mg/dLCritically high<=150The [facility] HospitalComformerly [facility] on above:Performed By: #### BNP, BMP, LIPID ####[facility] [address] [address]Dr. Yilan ChangVLDL CALC42.2 mg/dLNoDelaware County HospitalComment on above: Performed By: #### BNP, BMP, LIPID ####[facility] [address] [address]Dr. Yilan ChangPROF CHEM 8 (BAS METB)on 53-70-2062Sjhiy gap [Moles/Vol]14.7 mmol/LNormalSt. Vincent HospitalComformerly [facility] on above:Performed By: #### BNP, BMP, LIPID ####[facility] [address] [place], [place] [address]Dr. Yilan ChangCalcium [Mass/Vol]8.7 mg/dL Normal8.5-10.1The [facility] HospitalComment on above:Performed By: #### BNP, BMP, LIPID ####[facility] [address] [address]Dr. Yilan ChangChloride [Moles/Vol]104 mmol/UJpmlsp00-576Ovj [facility] HospitalComment on above:Performed By: #### BNP, BMP, LIPID ####[facility] [address] [place], [place] [address]Dr. Yilan ChangCO2 [Moles/Vol]26.0 mmol/OMhtrmn49.0-32.0The [facility] HospitalComment on above: Performed By: #### BNP, BMP, LIPID ####[facility] [address] [place], [place] [address]Dr. Yilan ChangCreatinine [Mass/Vol]2.91 mg/dL Critically high0.55-1.02The [facility] HospitalComformerly [facility] on above:Performed By: #### BNP, BMP, LIPID ####[facility] [address] [place], [place] [address]Dr. Yilan ChangEGFR-AF ZDFJYNPH10 mL/min/1.77b0Svgvrgikoc low>=60The [facility] HospitalComformerly [facility] on above:Performed By: #### BNP, BMP, LIPID ####[facility] [address] [address]Dr. Yilan ChangEGFR-NON AF RKGSUUBT86 mL/min/1.26k2Boflljtnyi low>=60The [facility] HospitalComment on above:Performed By: #### BNP, BMP, LIPID ####[facility] [address] [address]Dr. Yilan Petty Glucose [Mass/Vol]110 mg/dLCritically stck24-438Fkt [facility] HospitalComformerly [facility] on above:Performed By: #### BNP, BMP, LIPID ####[facility] [address] [address]Dr. Yilan ChangPotassium [Moles/Vol]3.7 mmol/LNormal3.5-5.1The [facility] HospitalComment on above:Performed By: #### BNP, BMP, LIPID ####[facility] [address] [place], [place] [address]Wn. Aryan ChangSodium [Moles/Vol]141 mmol/GWvqzxy785-168Ows [facility] HospitalComment on above:Performed By: #### BNP, BMP, LIPID ####[facility] [address] [place], [place] [address]Ve. Yilan ChangUrea nitrogen [Mass/Vol]51.0 mg/dLCritically high7.0-18.0St. Vincent HospitalComment on above:Performed By: #### BNP, BMP, LIPID ####[facility] [address] [place], [place] [address]Za. Yilan ChangUrea nitrogen/Creatinine [Mass ratio]17.5 mg/mgNormalThe [facility] HospitalComment on above:Performed By: #### BNP, BMP, LIPID ####[facility] [address] [id number]. Aryan ChangBasic Metabolic Panel Reflex Mgon 64-39-4862Ymchr gap 3 molar conc10 mmol/LNormal7-13[facility] HospitalCalcium mass conc8.2 mg/dLLow8.6-10.2MConejos County HospitalChloride molar muau172 mmol/LCritically latt39-491AvkqjFamily Health West HospitalCO2 molar conc25 mmol/WEhuodw76-51QzpqxFamily Health West HospitalCreatinine mass conc1.21 mg/dLCritically high0.50-0.90[facility] HospitalGFR/1.73 sq M predicted among blacks MDRD vol rate/area (S/P/Bld)53.4 mL/min/{1.73_m2}Low>60 [facility] HospitalComment on above:Result Comment: >60 mL/min/1.73m2 EGFR, calc. for ages 18 and older using theMDRD formula (not corrected for weight), is valid for stablerenal function.GFR/1.73 sq M.predicted MDRD vol rate/area44.2 mL/min/{1.73_m2}Low>60[facility] HospitalComment on above:Result Comment: >60 mL/min/1.73m2 EGFR, calc. for ages 18 and older using theMDRD formula (not corrected for weight), is valid for stablerenal function. Glucose mass ycmw629 mg/dLCritically qhab27-805LedxiFamily Health West Hospital Potassium reflex Mg3.6 mEq/LNormal3.5-5.1MChildren's Hospital Coloradoodium molar wxyd980 mmol/QMpkihh129-240HwtoxFamily Health West HospitalUrea nitrogen mass conc26 mg/dLCritically high8-23[facility] HospitalCBC With Platelet and Differentialon 13-54-2694Utfcwgwee Auto #/vol (Bld)0.1 10*3/uLNormal0.0-0.2 [facility] HospitalBasophils/100 WBC Auto (Bld)0.7 %The Memorial HospitalEosinophils Auto #/vol (Bld)0.3 10*3/uLNormal0.0-0.7[facility] HospitalEosinophils/100 WBC Auto (Bld)3.1 %The Memorial HospitalErythrocyte distribution width Auto Ratio (RBC)13.4 %Normal 11.5-14.5[facility] HospitalHematocrit Auto Volume Fraction (Bld)34.6 %Low37.0-47.0[facility] HospitalHemoglobin mass conc (Bld)12.0 g/dL Fawfrk21.0-16.0[facility] HospitalLymphocytes Auto #/vol (Bld)2.3 10*3/uLNormal1.0-4.8[facility] HospitalLymphocytes/100 WBC Auto (Bld) 24.2 %The Memorial HospitalMCH Auto Entitic mass (RBC)33.0 pg Critically high27.0-31.3MConejos County HospitalMCHC Auto mass conc (RBC) 34.6 %Ntmvch42.0-37.0[facility] HospitalMCV Auto Entitic volume (RBC) 95.4 pDSyjugi37.0-100.0[facility] HospitalMonocytes Auto #/vol (Bld) 0.9 10*3/uLCritically high0.2-0.8[facility] HospitalMonocytes/100 WBC Auto (Bld)9.8 %The Memorial HospitalNeutrophils Auto #/vol (Bld) 5.9 10*3/uLNormal1.4-6.5[facility] HospitalNeutrophils/100 WBC Auto (Bld)62.2 %The [facility] HospitalPlatelets Auto #/vol (Bld)139 10*3/lKQotxqf653-680HqighFamily Health West HospitalRBC Auto #/vol (Bld)3.62 10*6/uLLow4.20-5.40[facility] HospitalWBC Auto #/vol (Bld)9.5 10*3/uL Normal4.8-10.8[facility] HospitalBasic Metabolic Panelon 06-06-2018 Anion gap 3 molar conc11 mmol/LNormal7-13[facility] HospitalCalcium mass conc8.3 mg/dLLow8.6-10.2MConejos County HospitalChloride molar mpgy542 mmol/YEogxjb24-620NmsatFamily Health West HospitalCO2 molar conc26 mmol/LNormal 22-29[facility] HospitalCreatinine mass conc1.90 mg/dLCritically high 0.50-0.90[facility] HospitalGFR/1.73 sq M predicted among blacks MDRD vol rate/area (S/P/Bld)31.8 mL/min/{1.73_m2}Low>60[facility] Comment on above:Result Comment: >60 mL/min/1.73m2 EGFR, calc. for ages 18 and older using theMDRD formula (not corrected for weight), is valid for stablerenal function.GFR/1.73 sq M.predicted MDRD vol rate/area26.2 mL/min/{1.73_m2}Low>60 [facility] HospitalComment on above:Result Comment: >60 mL/min/1.73m2 EGFR, calc. for ages 18 and older using theMDRD formula (not corrected for weight), is valid for stablerenal function.Glucose mass ppia409 mg/dLCritically gfdc39-277DakomFamily Health West HospitalPotassium molar conc4.1 mmol/LNormal 3.5-5.1MChildren's Hospital Coloradoodium molar iiwm049 mmol/JIbnsuo651-238 [facility] HospitalUrea nitrogen mass conc25 mg/dLCritically high8-23 [facility] HospitalCBC With Platelet and Differentialon 06-06-2018 Basophils Auto #/vol (Bld)0.0 10*3/uLNormal0.0-0.2MConejos County Hospital Basophils/100 WBC Auto (Bld)0.1 %The [facility] HospitalEosinophils Auto #/vol (Bld)0.0 10*3/uLNormal0.0-0.7[facility] Eosinophils/100 WBC Auto (Bld)0.0 %[facility] Erythrocyte distribution width Auto Ratio (RBC)13.5 %Cqydpl35.5-14.5[facility] HospitalHematocrit Auto Volume Fraction (Bld)35.0 %Low37.0-47.0 [facility] HospitalHemoglobin mass conc (Bld)12.0 g/eRRpdoei39.0-16.0 [facility] HospitalLymphocytes Auto #/vol (Bld)1.0 10*3/uLNormal 1.0-4.8[facility] HospitalLymphocytes/100 WBC Auto (Bld)8.2 %Normal [facility] HospitalMCH Auto Entitic mass (RBC)32.8 pgCritically high 27.0-31.3MConejos County HospitalMCHC Auto mass conc (RBC)34.4 %Normal 33.0-37.0[facility] HospitalMCV Auto Entitic volume (RBC)95.3 fLNormal 82.0-100.0[facility] HospitalMonocytes Auto #/vol (Bld)1.0 10*3/uL Critically high0.2-0.8[facility] HospitalMonocytes/100 WBC Auto (Bld) 8.0 %The Memorial HospitalNeutrophils Auto #/vol (Bld)10.1 10*3/uL Critically high1.4-6.5[facility] HospitalNeutrophils/100 WBC Auto (Bld)83.7 %The [facility] HospitalPlatelets Auto #/vol (Bld)146 10*3/sQQqsrnr029-868StekgFamily Health West HospitalRBC Auto #/vol (Bld)3.67 10*6/uLLow4.20-5.40[facility] HospitalWBC Auto #/vol (Bld)12.1 10*3/uL Critically high4.8-10.8[facility] HospitalXR CHEST (2 VW)on 06-06-2018 XR CHEST (2 VW)EXAMINATION: XR CHEST (2 VW)REASON FOR EXAM: ordered per doctor Desirae FINDINGS: 2 views of the chest reveal thoracotomy changes overlying the midline. Increased linear markings overlie the left base having the appearance of scarring or atelectasis. No consolidating infiltrate overlies the right base which could represent early developing pneumonia. No previous films for comparison.Central and upperlung augustine clear. Bones osteopenic but grossly intact. IMPRESSION: MILD CARDIOMEGALY.BIBASILAR INFILTRATES RIGHT SIDE GREATER THAN LEFT CONSISTENT WITH ATELECTASIS/SCARRING/PNEUMONITIS. Interpreted b y:ANDRA Dominguezigned by:Joss Casas MD06/06/18Final resultNormalFamily Health West HospitalBasic Metabolic Panel Reflex Mgon 60-12-3609Raqtk gap 3 molar conc11 mmol/LNormal7-13[facility] HospitalCalcium mass conc8.9 mg/dLNormal8.6-10.2MConejos County HospitalChloride molar oahe594 mmol/L Ethfic82-017TodhaFamily Health West HospitalCO2 molar conc25 mmol/DQpcfhr00-72HoictFamily Health West HospitalCreatinine mass conc0.86 mg/dLNormal0.50-0.90Family Health West HospitalGFR/1.73 sq M predicted among blacks MDRD vol rate/area (S/P/Bld)mL/min/{1.73_m2}Normal>60[facility] HospitalComment on above: Result Comment: >60 mL/min/1.73m2 EGFR, calc. for ages 18 and older using theMDRD formula (not corrected for weight), is valid for stablerenal function. GFR/1.73 sq M.predicted MDRD vol rate/areamL/min/{1.73_m2}Normal>60[facility] HospitalComment on above:Result Comment: >60 mL/min/1.73m2 EGFR, calc. for ages 18 and older using theMDRD formula (not corrected for weight), is valid for stablerenal function.Glucose mass cqpn582 mg/dLCritically oitr51-848 [facility] HospitalPotassium reflex Mg4.0 mEq/LNormal3.5-5.1MChildren's Hospital Coloradoodium molar nxmi638 mmol/LWrxlky869-563MdtniFamily Health West HospitalUrea nitrogen mass conc13 mg/dLNormal8-23[facility] HospitalCBC With Platelet and Differentialon 27-03-3876DVS morphology finding Nom (Bld)NormalNormalFamily Health West HospitalPlatelet Slide ReviewNormalNormal [facility] HospitalBasophils Auto #/vol (Bld)0.1 10*3/uLNormal0.0-0.2 [facility] HospitalBasophils/100 WBC Auto (Bld)1.0 %[facility] HospitalEosinophils Auto #/vol (Bld)0.0 10*3/uLNormal0.0-0.7Family [facility] HospitalEosinophils/100 WBC Auto (Bld)0.4 %[facility] Memorial HospitalErythrocyte distribution width Auto Ratio (RBC)13.5 %Normal 11.5-14.5Family [facility] HospitalHematocrit Auto Volume Fraction (Bld)40.5 %Lvzcwh44.0-47.0[facility] HospitalHemoglobin mass conc (Bld)13.7 g/dL Icnitp94.0-16.0[facility] HospitalLymphocytes Auto #/vol (Bld)2.0 10*3/uLNormal1.0-4.8[facility] HospitalLymphocytes/100 WBC Auto (Bld) 15.5 %[facility] HospitalMCH Auto Entitic mass (RBC)32.4 pg Critically high27.0-31.3MConejos County HospitalMCHC Auto mass conc (RBC) 33.9 %Iwgvtf23.0-37.0[facility] HospitalMCV Auto Entitic volume (RBC) 95.6 wYEqffhy92.0-100.0[facility] HospitalMonocytes Auto #/vol (Bld) 1.3 10*3/uLCritically high0.2-0.8[facility] HospitalMonocytes/100 WBC Auto (Bld)10.1 %NormalFamily Health West HospitalNeutrophils Auto #/vol (Bld) 9.4 10*3/uLCritically high1.4-6.5[facility] HospitalNeutrophils/100 WBC Auto (Bld)73.0 %NormalFamily Health West HospitalPlatelets Auto #/vol (Bld)168 10*3/uRSnwops208-545LkzsoFamily Health West HospitalRBC Auto #/vol (Bld) 4.24 10*6/uLNormal4.20-5.40[facility] HospitalWBC Auto #/vol (Bld)12.9 10*3/uLCritically high4.8-10.8[facility] HospitalPOCT Glucoseon 68-85-5506Zikpbne mass tjde202 mg/dLCritically tluv90-348BmaglFamily Health West HospitalXR LUMBAR SPINE (2-3 VIEWS)on 16-07-7949AZ LUMBAR SPINE (2-3 VIEWS) EXAMINATION: XR LUMBAR SPINE (2-3 VIEWS)CLINICAL HISTORY: postop documentation COMPARISONS: MRI lumbar spine, April 02, 2018FINDINGS: Frontal and lateral views of lumbar spine were obtained. There arepedicle screws and stabilizing struts at L4, L5 and S1 with intervertebral fusion devices at L4-5 and L5-S1. There is wide laminectomy at L4-L5 and S1. There is grade 1 spondylolisthesis at L5-S1 andL4-5. There is advanced discogenic degenerative disease at L2-3 and L3-4. There are no compression deformities.The abdominal aorta is heavily calcified. There are common iliac artery stents.CONCLUSION: UNREMARKABLE STABILIZATION HARDWARE AND INTERVERTEBRAL FUSION HARDWARE AT L4-5 AND L5-S1.Interpreted by:ANDRA Sotoigned by:Tanvir Power MD06/05/18Final resultNormal [facility] HospitalBasic Metabolic Panel Reflex Mgon 73-45-4177Igwhw gap 3 molar conc13 mmol/LNormal7-13[facility] HospitalCalcium mass conc9.1 mg/dLNormal8.6-10.2MConejos County HospitalChloride molar wixm573 mmol/CXkbbdf92-677VqplxFamily Health West HospitalCO2 molar conc23 mmol/LNormal 22-29[facility] HospitalCreatinine mass conc1.08 mg/dLCritically high 0.50-0.90[facility] HospitalGFR/1.73 sq M predicted among blacks MDRD vol rate/area (S/P/Bld)mL/min/{1.73_m2}Normal>60[facility] Comment on above:Result Comment: >60 mL/min/1.73m2 EGFR, calc. for ages 18 and older using theMDRD formula (not corrected for weight), is valid for stablerenal function.GFR/1.73 sq M.predicted MDRD vol rate/area50.4 mL/min/{1.73_m2}Low>60 [facility] HospitalComment on above:Result Comment: >60 mL/min/1.73m2 EGFR, calc. for ages 18 and older using theMDRD formula (not corrected for weight), is valid for stablerenal function.Glucose mass hcgx182 mg/dLCritically zkkt09-848LmgkkFamily Health West HospitalPotassium reflex Mg4.3 mEq/LNormal3.5-5.1 [facility] Hospitalodium molar fsnk382 mmol/YVbabxm860-283OafkaFamily Health West HospitalUrea nitrogen mass conc21 mg/dLNormal8-23[facility] HospitalCB With Platelet No Differentialon 14-13-1402Fjypvmlcndx distribution width Auto Ratio (RBC)13.4 %Qlyrcx74.5-14.5[facility] HospitalHematocrit Auto Volume Fraction (Bld)44.5 %Hymiyo89.0-47.0[facility] HospitalHemoglobin mass conc (Bld)15.2 g/tTRypmbv21.0-16.0[facility] HospitalMCH Auto Entitic mass (RBC)32.6 pgCritically high27.0-31.3MConejos County HospitalMCHC Auto mass conc (RBC)34.3 %Ndimbx71.0-37.0[facility] HospitalMCV Auto Entitic volume (RBC)95.1 vOVytaip87.0-100.0[facility] HospitalPlatelets Auto #/vol (Bld)163 10*3/rTVshyrc667-882RxmdhFamily Health West HospitalRBC Auto #/vol (Bld)4.68 10*6/uLNormal4.20-5.40[facility] HospitalWBC Auto #/vol (Bld)8.3 10*3/uLNormal4.8-10.8[facility] HospitalFLUORO FOR SURGICAL PROCEDURESon 26-10-4818BSYFJD FOR SURGICAL PROCEDURESEXAMINATION: Intraoperative lumbar fusion.CLINICAL HISTORY: Back pain. Lumbar [...] the soft tissue anterior to the spinal column.Creek bone intact.Please see procedural note for more detailed.IMPRESSION: INTRAOPERATIVE PLIF L3- L5.Interpreted by:ANDRA Dominguezigned by:Joss Casas MD06/04/18Final resultNormalFamily Health West HospitalPOCT Glucoseon 69-60-5546Swfymea mass rrga824 mg/cNIwosgs02-205LkfnqFamily Health West HospitalPOC Performed onACCU-CHEK NormalCedar Springs Behavioral Hospitalurgical Specimenon 94-88-1091Uvhplnhs SpecimenInvalid Interpretation CodeFamily Health West HospitalComment on above:Result Comment: [place] [address] [facility] SURGICAL PATHOLOGY REPORTPatient Name: MARLENI DENNIS Accession No: [id number] Age Sex: 1950 Location: DIS [id number] No: [id number] Collected: 06/04/2018Med Rec No: [id number] Received: 06/05/2018Attend Phys: SHAKA DESIRAE Completed: 06/07/2018Perform [...] two cassettes after a brief decalcification. ALDWA/SCDANCPT: [id number] X1 48146 [id number] ENGEL M.D. 06/07/2018 Electronically signed out by Page 1 of 1Basic Metabolic Panelon 90-70-3099Asawx gap 3 molar conc14 mmol/LCritically high7-13 [facility] HospitalCalcium mass conc9.7 mg/dLNormal8.6-10.2MConejos County HospitalChloride molar etwr595 mmol/SEmhnnv54-397UpicxFamily Health West HospitalCO2 molar conc25 mmol/YUsahvu43-93PpeqvFamily Health West Hospital Creatinine mass conc1.15 mg/dLCritically high0.50-0.90[facility] HospitalGFR/1.73 sq M predicted among blacks MDRD vol rate/area (S/P/Bld)56.7 mL/min/{1.73_m2}Low>60[facility] HospitalComment on above:Result Comment: >60 mL/min/1.73m2 EGFR, calc. for ages 18 and older using theMDRD formula (not corrected for weight), is valid for stablerenal function.GFR/1.73 sq M.predicted MDRD vol rate/area46.8 mL/min/{1.73_m2}Low>60[facility] HospitalComment on above:Result Comment: >60 mL/min/1.73m2 EGFR, calc. for ages 18 and older using theMDRD formula (not corrected for weight), is valid for stablerenal function.Glucose mass irmy204 mg/lQEjekum42-059OtezlFamily Health West HospitalPotassium molar conc3.6 mmol/LNormal3.5-5.1MChildren's Hospital Coloradoodium molar mlrd651 mmol/SIiocqx770-874BktglFamily Health West HospitalUrea nitrogen mass conc21 mg/dLNormal8-23[facility] HospitalCBC With Platelet No Differentialon 07-15-8246Ojtxuaoyhxy distribution width Auto Ratio (RBC)13.5 %Hpjtsl93.5-14.5[facility] HospitalHematocrit Auto Volume Fraction (Bld)44.4 %Obpacm11.0-47.0[facility] HospitalHemoglobin mass conc (Bld)15.5 g/qRKubimx73.0-16.0[facility] CenterH Auto Entitic mass (RBC)33.0 pgCritically high27.0-31.3MThe Medical Center of AuroraHC Auto mass conc (RBC)34.9 %Fpcwbv82.0-37.0[facility] HospitalMCV Auto Entitic volume (RBC)94.4 pYLgzlor84.0-100.0[facility] Platelets Auto #/vol (Bld)199 10*3/eQXezyxe185-433UlujeFamily Health West Hospital RBC Auto #/vol (Bld)4.71 10*6/uLNormal4.20-5.40[facility] HospitalWBC Auto #/vol (Bld)7.0 10*3/uLNormal4.8-10.8[facility] HospitalCulture, MRSA Screenon 64-99-6852Qhvczqv, MRSA ScreenORDER#: [id number] ORDERED BY: CLIFTON STONE: Nares Nasal COLLECTED: 05/23/18 11:37ANTIBIOTICS AT SERGIO.: RECEIVED : 05/23/18 11:37Culture, MRSA Screen FINAL 05/24/18 12:57 No MRSA isolatedThe Memorial HospitalCuthe [facility], Urineon 05-23-2018 Culture, UrineORDER#: [id number] ORDERED BY: CLIFTON STONE: Urine Clean Catch COLLECTED: 05/23/18 12:44ANTIBIOTICS AT SERGIO.: RECEIVED : 05/23/18 12:44Culture, Urine FINAL 05/25/18 10:55 No growth 24 hoursNoCommunity HospitalProthrombin Timeon 95-94-0614EGQ Coag RelTime (PPP)1.1 {INR}Normal [facility] HospitalComment on above:Result Comment: Recommended INR therapeutic ranges for oral anticoagulanttherapyProphylaxis/treatment of: INR Venous Thrombosis, Pulmonary Embolism 2.0-3Prevention of Systemic Embolism from: Atrial Fibrillation 2.0-3.0 Myocardial Infarction 2.0-3.0 Mechanical Prosthetics Heart Valves 2.5-3.5 Recurrent Systemic Embolism 2.5-3.5Guidelines for patients with coagulopathy, e.g. liver disease:Use the Protime resulted in seconds. Mild 12.9-17.0 sec Moderate 17.1-22.6 sec Severe G.T. 22.6 secProthrombin time (PT) Coag time (PPP)11.0 sNormal9.6-12.3MConejos County HospitalType and Screen Capture 3 scrn cellon 35-59-0546Lgcvwcxas mass concPATIENT: WENDY ANDRADE LOC: DAYSIBILL# : [id number] : 1950 SEX: FORDERED BY: CHASE Lua ORDERED : 05/23/2018 09:33 COLLECTED: 05/23/2018 11:41ORDER : [id number] RECEIVED : 05/23/2018 11:41 ---TEST NAME RESULT UNITS RANGES ABN FL STABORH Capture AB POS FAntibody 3 Cell Scrn Captu NEG F---- Normal [facility] HospitalUrinalysis, reflex to cultureon 71-29-6904Kkknw Reflexed to CultureYENorth Suburban Medical CenterBilirubin Ql (U) NegativeNormalNegSt. Anthony North Health CampusClarity Nom (U)ClearNormal ClearFamily Health West HospitalColor Nom (U)YellowNormalStraw/YellFamily Health West HospitalGlucose Ql (U)NegativeNormalNegSt. Anthony North Health CampusHemoglobin Test strip Ql (U)NegativeNormalNegSt. Anthony North Health CampusKetones Ql (U)TRACEAbnormalNegSt. Anthony North Health Campus Leukocyte esterase Test strip Ql (U)TRACEAbnormalNegativeFamily Health West HospitalNitrite Test strip Ql (U)NegativeNormalNegSt. Anthony North Health CampuspH Test strip (U)6.0 [pH]Normal5.0-9.0[facility] HospitalProtein Test strip Ql (U)TRACEAbnormalNegMelissa Memorial Hospitalpecific gravity Relative Density (U)1.855Ovcsgj7.005-1.03[facility] Urobilinogen Test strip Qn (U)0.2 {Dago'U}/dLNormal< 2.0[facility] HospitalUrine Microscopicon 65-84-7062Minxf LM.LPF #/area (Urine sed)0-1 HyalineNormalFamily Health West HospitalRBC Test strip #/vol (U)7-8Stopxl1-5 [facility] HospitalUrine Amorphous1+NormalFamily Health West HospitalWBC #/vol (U)0-0Mqbfdz0-5CcuibFamily Health West HospitalXR SPINE ENTIRE (2-3 VIEWS)on 38-73-5135WF SPINE ENTIRE (2-3 VIEWS)PREOP NO DICTATION Interpreted by: Barb Wetzel MD Signed by: Barb Wetzel MD 06/08/18 Final resultNoCommunity Hospital Vital Signs Date TimeVital SignValuePerforming CsesthbjqSpafxvwn50-42-2886 13:28-040Body zqlyprqnulx09.5 [degF]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 SOLAR SALES ADVISOR Work Phone: [facility] HospitalZeclrweogy60-40-6864 13:28040Diastolic blood dqhmfmea68 mm[Hg]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 SOLAR SALES ADVISOR Work Phone: [facility] HospitalGfozthqmag83-73-7216 13:28040Heart rate66 /min 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 SOLAR SALES ADVISOR Work Phone: [facility] HospitalDdmmoruudu30-09-8996 13:283299WbY5% (BldA) [Mass fraction]98 %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 SOLAR SALES ADVISOR Work Phone: [facility] HospitalSwrifvwfeb64-94-6264 13:28Systolic blood okfkehur343 mm[Hg]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 SOLAR SALES ADVISOR Work Phone: [facility] HospitalIcilywycku14-83-2677 11:14-0400Body ilgctj815.5 cmJack Vogt MD Work Phone: [facility] HospitalKgyxphroqz25-92-2729 11:14-0400Body mass index (BMI) [Ratio]23.59 kg/o2FznnwrJack Vogt MD Work Phone: 1(084)[facility]-8056L[facility] HospitalZytetmkjfi22-62-9945 11:14-0400Body .51 kgJack Vogt MD Work Phone: 1(411)[facility]4823[facility] HospitalJgegidxqtg87-73-7880 11:14-0400Diastolic blood hwzyangk20 mm[Hg]Jack Vogt MD Work Phone: [facility] HospitalMmgenurkkr68-08-4892 11:14-0400Heart rate57 /min Jack Vogt MD Work Phone: 1(998)[address] [place], [place] 5153009-22-2025 11:142341GwX5% (BldA) [Mass fraction]98 %Jack Vogt MD Work Phone: 1(556)[facility]-[address] [place], [place] [address]Arcrtvkqyy10-15-9625 11:14-0400Systolic blood ivsnyiax516 mm[Hg]Jack Vogt MD Work Phone: 1(073)174-[address] [place], [place] [address]Abxtweteup61-10-5598 12:14-0400Body vhwucufkbvx42 [degF]Jack Vogt II Work Phone: 1(404)[address] [place], [place] 9536707-25-2025 12:14-0400 Diastolic blood mvcxtjac10 mm[Hg]Jack Vogt II Work Phone: 1(784)[address] [place], [place] 9536707-25-2025 12:14-0400 Heart rate66 /Cora Vogt II Work Phone: 1(143)[address] [place], [place] 9536707-25-2025 12:14-0400 Respiratory rate18 /Cora Vogt II Work Phone: 1(413)[address] [place], [place] 9536707-25-2025 12:14-0400 SaO2% (BldA) [Mass fraction]90 %Jack Vogt II Work Phone: [phone])[address] [place], [place] 9536707-25-2025 12:14-0400 Systolic blood lozoyrcf550 mm[Hg]Jack Vogt II Work Phone: 1(456)[address]07-25-2025 04:55-0400 Body cjasbs11.4 kgDaniel Vogt II Work Phone: 1(498)[address]07-24-2025 07:28-0400 Inhaled oxygen flow rate3 L/minDadonisel Vogt II Work Phone: 1(394)[address]07-23-2025 02:12-0400 Body srbehf831.94 cmDasherleyel Vogt II Work Phone: 1(995)[address]07-23-2025 01:25-0400 SaO2% (BldA) [Mass fraction]96 %Jack Vogt II Work Phone: 1(424)[address] [place], [place] 9536707-23-2025 01:09-0400 Diastolic blood pkzszboy39 mm[Hg]Jack Vogt II Work Phone: 1(585)[address]07-23-2025 01:09-0400 Heart rate71 /minDadonisel Vogt II Work Phone: 1(513)[address]07-23-2025 01:09-0400 Inhaled oxygen flow rate2 L/minDadonisel Vogt II Work Phone: 1(525)[address] [place], [place] 9536707-23-2025 01:09-0400 Respiratory rate18 /minDadonisel Vogt II Work Phone: 1(360)[address]07-23-2025 01:09-0400 Systolic blood jnyhkggb323 mm[Hg]Jack Vogt II Work Phone: 1(325)[address] [place], [place] 9536707-22-2025 18:56-0400 Body .5 [degF]Jack Vogt II Work Phone: 1(502)[address] [place], [place] 9536707-22-2025 17:59-0400 Body cnhimq364.94 cmDasherleyel Vogt II Work Phone: 1(979)119-[address] [place], [place] 2808007-22-2025 17:59-0400 Body cveryw68.77 kgDabambi Vogt II Work Phone: [phone] [place], [place] 2808007-22-2025 16:22-0400 Diastolic blood nzunzjst21 mm[Hg]Jack Vogt II Work Phone: 1(115)590-[address] [place], [place] 2808007-22-2025 16:22-0400 Systolic blood ellzzxby747 mm[Hg]Jack Vogt II Work Phone: 1(210)462-[address] [place], [place] 2808007-22-2025 16:02-0400 Body .94 cmDabambi Vogt II Work Phone: 1(509)[address]07-22-2025 16:02-0400 Body mass index (BMI) [Ratio]27.3 kg/y7Fyqmjhbambi Vogt II Work Phone: 1(388)[address]07-22-2025 16:02-0400 Body ohhhir64.77 kgDabambi Vogt II Work Phone: 1(976)276-[address] [place], [place] 2808007-22-2025 16:02-0400 Heart rate63 /Cora Vogt II Work Phone: 1(306)362-[address] [place], [place] 2808007-22-2025 16:02-0400 Respiratory rate16 /Cora Vogt II Work Phone: 1(544)181-[address] [place], [place] 2808007-22-2025 16:02-0400 SaO2% (BldA) [Mass fraction]99 %Jack Vogt II Work Phone: 1(765)397-[address] [place], [place] 2808007-16-2025 14:31-0400 Body mgclyibejkw13.5 [degF]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 SOLAR SALES ADVISOR Work Phone: [facility] HospitalPzrhnbqzxm33-99-2773 14:31-0400Heart rate58 /min 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 SOLAR SALES ADVISOR Work Phone: [facility] HospitalAmokabdqey20-45-7378 14:31-0052JfO2% (BldA) [Mass fraction]98 %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 SOLAR SALES ADVISOR Work Phone: [facility] HospitalWggdlukrze01-19-3902 16:44-0400Body zhogtr434.5 cmDabambi Vogt MD Work Phone: NOSaint [facility] CenterQiieqyjwhv31-49-5607 16:44-0400Body mass index (BMI) [Ratio]26.34 kg/w4KjioccJack Vogt MD Work Phone: NOSaint [facility] CenterTmxoghthkv18-28-6776 16:44-0400Body kgpass78.32 kgJack Vogt MD Work Phone: NOSaint [facility] CenterTgvwlkbjgb49-28-2754 16:44-0400Diastolic blood zsatidqs21 mm[Hg]Jack Vogt MD Work Phone: NOSaint [facility] CenterXztqkvlrnh31-15-4991 16:44-0400Heart rate76 /min Jack Vogt MD Work Phone: NOSaint [facility] CenterBbahzhadbn94-56-8087 16:44-9369WwJ1% (BldA) [Mass fraction]99 %Jack Vogt MD Work Phone: NOSaint [facility] CenterRgvcnxjdag76-27-8661 16:44-0400Systolic blood mm[Hg]Jack Vogt MD Work Phone: NOSaint [facility] CenterBnqrjuplmh44-62-6228 11:40-0400Body sjgwma527.5 cmSoxana Moncada SOLAR SALES ADVISOR Work Phone: [phone] John's Breech [facility] Medical CenterEoyugonrid00-34-8683 11:40-0400Body mass index (BMI) [Ratio]26.89 kg/m3CdxlhyRenetta Moncada SOLAR SALES ADVISOR Work Phone: [phone] John's Breech [facility] Medical CenterTvlaeukpvj28-93-6251 11:40-0400Body onyeic09.68 kgRenetta Moncada SOLAR SALES ADVISOR Work Phone: NOSaint [facility] CenterDceebwmqed41-20-9389 11:40-0400Diastolic blood eonrjxoi76 mm[Hg]Renetta Moncada SOLAR SALES ADVISOR Work Phone: NOSaint [facility] CenterSwskbwejqa20-81-7331 11:40-0400Heart rate74 /min Renetta Moncada SOLAR SALES ADVISOR Work Phone: NOSaint [facility] CenterTovlevrksm71-73-4727 11:40-0400Respiratory rate16 /minSoxana Moncada SOLAR SALES ADVISOR Work Phone: [facility] HospitalUuaeshiubd89-60-4920 11:40-5135EbI7% (BldA) [Mass fraction]97 %Renetta Moncada SOLAR SALES ADVISOR Work Phone: [phone] John's Breech Regional Medical CenterYtpuoxkxcn90-93-5171 11:40-0400Systolic blood ntwljeoq955 mm[Hg]Renetta Moncada SOLAR SALES ADVISOR Work Phone: 1(914)[facility]-6271NOSaint John's Breech [facility] Medical CenterBhozteyzdt63-30-2846 09:40-0400Body .8 cmJack Vogt MD Work Phone: 1(533)[facility] CenterLiberty HospitalProflnkzux65-41-8577 09:40-0400Body mass index (BMI) [Ratio]28.08 kg/u8LonmcqJack Vogt MD Work Phone: 1(271)[facility] [place], [place] [address]Ktxnjosadt36-26-0061 09:40-0400Body dqrugl30.76 kgJack Vogt MD Work Phone: 1(625)[facility] CenterLiberty HospitalKdwlvxgwdf51-67-1172 09:40-0400Diastolic blood zrviowjh58 mm[Hg]Jack Vogt MD Work Phone: 1(254)[facility] CenterLiberty HospitalBpmvguhyrz35-01-2520 09:40-0400Heart rate62 /min Jack Vogt MD Work Phone: 1(336)[facility] CenterLiberty HospitalTgbrrbdgba26-41-5943 09:40-2202QzK3% (BldA) [Mass fraction]96 %Jack Vogt MD Work Phone: 1(970)[facility]0000[facility] CenterUmbnbczzmk09-98-1089 09:40-0400Systolic blood djynguou220 mm[Hg]Jack Vogt MD Work Phone: 1(062)[facility] CenterLiberty HospitalSelouyahic11-55-8986 11:41-0400Body gsdtah851.8 cmJack Vogt MD Work Phone: [phone] HospitalCsctlwefbp41-70-6895 11:41-0400Body mass index (BMI) [Ratio]28.44 kg/l7IavehbJack Vogt MD Work Phone: 1(591)[facility]364NOSaint [facility]'s [facility]ree[facility] Medical CenterFeycrafhwk22-87-6180 11:41-0400Body vwyzsb40.67 kgJack Vogt MD Work Phone: NOSaint [facility] CenterWovtqedaoe71-18-1084 11:41-0400Diastolic blood cweawnuu35 mm[Hg]Jack Vogt MD Work Phone: [facility] HospitalIbloijtnre39-05-3906 11:41-0400Heart rate65 /min Jack Vogt MD Work Phone: [facility] HospitalFzylepmqjs98-35-8464 11:41-9784RbI5% (BldA) [Mass fraction]96 %Jack Vogt MD Work Phone: [facility] HospitalTyrzlspxkq81-38-9728 11:41-0400Systolic blood ywrtokfv122 mm[Hg]Jack Vogt MD Work Phone: [facility] HospitalNlclfzmdfl55-45-0216 13:19-0500Blood Pressure LocationPatrick CARDENAS [facility] [place]03-03-2025 13:19-0500Body rogzsnoikhn82.6 [degF]Alfredo CARDENAS [facility] [place]03-03-2025 13:19-0500Diastolic blood mm[Hg]Alfredo CARDENAS [facility] [place]03-03-2025 13:19-0500Heart rate70 /minPatrick CARDENAS [facility] [place]03-03-2025 13:19-0500Respiratory rate16 /minPatrick CARDENAS [facility] [place]03-03-2025 13:19-0500Systolic blood nhyvkdmr192 mm[Hg]Alfredocodi CARDENAS [facility] [place]03-07-2024 14:31-0500Body upkbmq853.02 cmII Jack Vogt Work Phone: [facility]03-07-2024 14:31-0500 Body mass index (BMI) [Ratio]31 kg/m2II Jack Vogt Work Phone: [facility]03-07-2024 14:31-0500 Body .46 kgII Jack Vogt Work Phone: [facility]02-05-2024 12:31-0500 Blood Pressure LocationPaelza CARDENAS [facility] [place]02-05-2024 12:31-0500Diastolic blood xythizfv78 mm[Hg]Alfredo CARDENAS [facility] [place]02-05-2024 12:31-0500Heart rate62 /minPatrick CARDENAS [facility] [place]02-05-2024 12:31-0500Respiratory rate16 /minPatrick CARDENAS [facility] [place]02-05-2024 12:31-0500Systolic blood yfypayof681 mm[Hg]Alfredo CARDENAS [facility] [place]01-09-2023 12:59-0500Blood Pressure LocationPaelza CARDENAS [facility] [place]01-09-2023 12:59-0500Diastolic blood wcditale88 mm[Hg]Alfredo CARDENAS [facility] [place]01-09-2023 12:59-0500Heart rate78 /minPatrick CARDENAS [facility] [place]01-09-2023 12:59-0500Respiratory rate16 /minPatrick CARDENAS [facility] [place]01-09-2023 12:59-0500Systolic blood fvyeqonx063 mm[Hg]Alfredo CARDENAS [facility] [place]06-17-2022 10:16-0400Blood Pressure LocationAlfredo CARDENAS [facility] [place] 06-17-2022 10:16-0400Diastolic blood pciptvdm97 mm[Hg] Alfredo CARDENAS [facility] [place] 06-17-2022 10:16-0400Heart rate56 /minAlfredo CARDENAS [facility] [place] 06-17-2022 10:16-0400Respiratory rate16 /minAlfredo CARDENAS [facility] [facility] [place] 06-17-2022 10:16-0400Systolic blood mm[Hg] Alfredo CARDENAS [facility] [place] Encounters Encounter DateEncounter TypeCare ProviderFacilityStart: 64-61-2827bgojdaehxh Alfredo CARDENASFacility:EU BellevueStart: 06-27-2025 End: 10-86-2341Jokamfwam encounter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 NP Work Phone: noms SWS ACOStart: 06-27-2025 End: 94-43-8129Tens visit est pt mod-hi severity 40 minutes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 SOLAR SALES ADVISOR Work Phone: [facility] ACOComment on above:Chronic kidney disease, stage 4 (severe) (HCC) (Primary Dx); Chronic diastolic congestive heart failure (HCC); Atherosclerosis of [place] coronary artery of [place] heart with stable angina pectoris; Benign essential hypertension; Degenerative lumbar spinal stenosis; Radiculopathy of lumbar region; Spinal stenosis, lumbar region with neurogenic claudication; Spondylolisthesis of lumbar region; Need for home health care; Routine lab draw; Advanced care planning/counseling discussionStart: 06-27-2025 End: 36-32-9631Twplrck encounter statusSohasandra Manning Carlos BOYKIN Work Phone: noms HealthcareStart: 06-09-2025 End: 02-19-1862Jlcvwp Berenice Vogt MD Work Phone: NOMM [place] MedinceStart: 06-09-2025 End: 16-51-0370Oxzgaq flowsLuis Vogt MD Work Phone: NOUZ [place] [facility] MedinceStart: 06-09-2025 End: 43-55-3662Tdhrdeevt Result EncounterJack Vogt MD Work Phone: noms External Department UnsolicitedStart: 06-09-2025 End: 96-29-0772Xnmiic outpatient visit 40 minutesJack Vogt MD Work Phone: noms [place] [facility] MedinceComment on above:Chronic kidney disease, stage 4 (severe) (HCC) (Primary Dx); Benign essential hypertension ; Functional diarrhea; 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 ; Chronic diastolic congestive heart failure (HCC); HypokalemiaStart: 06-09-2025 End: 65-66-2204byhjcsonwgLVXMAL B BERRYNot AvailableStart: 04-08-2025 End: 53-80-0794Opgxwsoqjq and management of inpatientObaaparna Valdez MD-[address] [place] [address] Work Phone: Start: 20-79-2128Gtp-patient / Non-visitAndrew Arrington MD-[facility] Work Phone: Start: 04-08-2025 End: 41-70-9385hexxehfcziNugpke Berry II Work Phone: [facility] Work Phone: Start: 04-08-2025 End: 27-39-5437Jftuefr encounter Sergei Patino MD-[facility] Nephrology [place] Work Phone: Start: 04-04-2025 End: 33-63-5258ahckrbsesyQQVFJoint Township District Memorial Hospitaltart: 04-02-2025 End: 54-85-6807Umju visit est pt mod-hi severity 40 minutes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 SOLAR SALES ADVISOR Work Phone: noms SWS ACOComment on above:Benign essential hypertension (Primary Dx); Chronic kidney disease, stage 4 (severe) ([facility]); Localized edema; Right flank pain; Routine lab drawStart: 04-02-2025 End: 82-32-3179Wloywjj encounter statusDejose Gonzalez SOLAR SALES ADVISOR Work Phone: noms HealthcareStart: 03-25-2025 End: 67-01-0720HqxjnaItkvt Dukles LPNNOMS CI FMComment on above:Benign essential hypertension ; Gastroesophageal reflux disease, unspecified whether esophagitis present; Insomnia due to medical conditionStart: 03-24-2025 End: 23-04-0540pjmcwimqjwBIYZRS B BERRYNot AvailableStart: 03-24-2025 End: 26-63-4682Laflqwltwzsn care manage srvc 14 day dischargeDsrikanth Vogt MD Work Phone: noms CI FMComment on above:Atherosclerosis of [place] coronary artery of [place] heart with stable angina pectoris (Primary Dx); Type 2 diabetes mellitus with stage 4 chronic kidney disease, without long-term current use of insulin (HCC); Insomnia due to medical condition; Chronic kidney disease, stage 4 (severe) ([facility]); Primary osteoarthritis of both kneesStart: 43-98-5087Chtwwaeska and management of inpatientCALEB T [facility]art: 03-13-2025 Evaluation and management of inpatientCALEB T [facility]tart: 91-54-7924Hgxduooqsn and management of inpatientCALEB T [facility] Westtart: 13-16-6086Zeogdplxss and management of inpatientCALEB T SPEKettering Health Troytart: 03-13-2025 End: 34-99-4484Ekrpvohvea and management of inpatientJEFARNAZ ANHUniversity Hospitals Geauga Medical Centertart: 02-25-2025 End: 72-02-8760Sndqsn Jason Moncada SOLAR SALES ADVISOR Work Phone: NOMS CI FMStart: 02-25-2025 End: 50-03-7083Ivhpui Jason Moncada SOLAR SALES ADVISOR Work Phone: NOMS CI FMStart: 02-25-2025 End: 63-45-4745Enipxe outpatient visit 25 minutesRenetta Moncada SOLAR SALES ADVISOR Work Phone: NOMS CI FMComment on above:Thyroid nodule (CMS/HCC) (Primary Dx); 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/HCC); Chronic kidney disease, stage 4 (severe) (CMS/HCC); Hair loss; Other fatigue; Weight loss; Depressive disorder (CMS/HCC); Decreased estrogen levelStart: 02-25-2025 End: 26-98-2818dnzwgaisioPSJONE M SHIVELYNot AvailableStart: 01-02-2025 End: 15-40-2960Rjwidz Berenice Vogt MD Work Phone: NOMS CI FMStart: 01-02-2025 End: 67-05-0767Mecaieshruthi Vogt MD Work Phone: NOMS CI FMStart: 01-02-2025 End: 80-43-6167xknxldxuxyPEEXTR B BERRYNot AvailableStart: 01-02-2025 End: 79-50-9686Mnfkso outpatient visit 25 minutesDabambi Vogt MD Work Phone: NOMS CI FMComment on above:Stage 3b chronic kidney disease (HCC) (CMS/HCC) (Primary Dx); Pulmonary fibrosis, unspecified (CMS/HCC); Localized edema; Anxiety; Depressive disorder (CMS/HCC)Start: 12-12-2024 End: 08-34-9605Ektibzgopi Vogt MD Work Phone: noms CI FMStart: 12-12-2024 End: 01-30-0852Aqkirx flowsheetJack Vogt MD Work Phone: NOYO CI FMStart: 12-12-2024 End: 35-62-8392pdmdoaxgqmKTQLBK B BERRYNot AvailableStart: 12-12-2024 End: 52-46-6331Lpzbj of hemosiderin, quantJack Vogt MD Work Phone: [facility] Work Phone: Start: 12-12-2024 End: 51-55-4108Cfvokxy encounter procedureJack Vogt MD Work Phone: noms CI FMComment on above:Routine general medical examination at health care facility (Primary Dx); ACP (advance care planning); Spinal stenosis, lumbar region with neurogenic claudication; Stage 3b chronic kidney disease (HCC) (CMS/HCC); Pulmonary fibrosis, unspecified (CMS/HCC); Type 2 diabetes mellitus with diabetic peripheral angiopathy without gangrene (CMS/HCC); Localized edemaStart: 11-18-2024 End: 08-04-6230rcxmucegstIlxykcr R WATERSFacility:EU BellevueStart: 11-18-2024 End: 54-48-7383Whcmtsd encounter procedureAlfredo CARDENAS [facility] start: 11-03-2024 End: 47-58-0787IeyayvOjjnip B Berry MD Work Phone: noms CI FMComment on above:AnxietyStart: 09-30-2024 End: 30-75-5814rbhgbdsxabIviqprb R WATERSFacility:EU BellevueStart: 09-30-2024 End: 81-81-3656Fwygqiu encounter procedureAlfredo CARDENAS [facility] start: 09-16-2024 End: 20-12-2370PyoiwbLmzyvk B Berry MD Work Phone: NOER FMComment on above:Insomnia due to medical conditionStart: 09-13-2024 End: 26-53-0670Wfvdxvptt Result EncounterGeneric External Data ProviderNOMS External Department UnsolicitedStart: 09-13-2024 End: 29-60-8840Diywqbflv Result EncounterGeneric External Data ProviderNOMS External Department UnsolicitedStart: 04-24-2024 End: 39-51-7420rutysaeqykJMFYAB [facility] Start: 03-19-2024 End: 75-76-2823puzvhgrmofXbgmbq X OrzechFacility:EU BellevueStart: 03-19-2024 End: 45-70-6907Fonxolr encounter procedureAurora X Orzech [facility] [place] start: 08-63-1603qbveqwgezsWkvydy X OrzechFacility:EU BellevueStart: 02-05-2024 End: 19-33-0039oncgxoamhvZN Jack Vogt Work Phone: [facility] Work Phone: Start: 02-05-2024 End: 86-57-7563Nsecbcq encounter procedureII Jack Vogt Work Phone: [facility] Work Phone: Start: 11-23-2023 End: 05-91-1736Whhwhob encounter procedureII Jack Vogt Work Phone: [facility] Work Phone: Start: 10-23-2023 End: 51-52-5310Jkywggy encounter procedurePaelza CARDENAS [facility] start: 01-18-2023 End: 53-13-5929cyefowmhldUJYFEIE BOESFacility:L8Fpmcm: 01-10-2023 End: 90-20-1765zgwwlkckjhSZMTAIU BOESFacility:G5Zlxap: 09-26-2022 End: 64-73-3710Hvtvtlu encounter procedureAlfredo CARDENAS [facility] start: 09-07-2022 End: 09-43-5190kwqaimzlscYGPUHS SHIVELYFacility:F3Tghjs: 08-29-2022 End: 65-27-4674vcmiqzanqgSVDQGHE WATERSFacility:A8Acvux: 03-16-2022 End: 94-70-3389boixzrftzwHBJDCWF XIMENACKERFacility:C7Rxvpv: 03-04-2022 End: 32-70-0102Iyyptau encounter procedureAlfredo CARDENAS [facility] start: 02-22-2022 End: 66-54-7896rlpkgyovevPUPLLRL WATERSFacility:O8Xohhc: 02-16-2022 End: 91-67-2841kftaunqznkZUQOSUT BRYANERFacility:W9Sekdg: 02-04-2022 End: 16-26-2213dpqiluoqinPORCCEJ TUCKERFacility:C3Bndhs: 02-02-2022 End: 75-82-2218Frtwpxt encounter procedureII Jack Vogt Work Phone: [facility] Start: 01-31-2022 End: 06-12-1303hogssoxixlBZORZXQ TUCKERFacility:I9Lidcu: 06-04-2018 End: 73-34-3620Crmlozmvpm and management of inpatientBO [facility]ertart: 05-23-2018 End: 90-68-0542Wjtjhvu encounterBO [facility]ertart: 05-23-2018 End: 43-66-9036Ueaguix encounterBO [facility] Procedures DateProcedureProcedure DetailPerforming ClinicianStart: 30-06-1002Bdlfkhnvfvdcd metabolic panelJack Vogt MD Work Phone: Start: 15-22-7979NUR PRO BNPJack Vogt MD Work Phone: Start: 99-30-4715RUC CMP (CMP) (FOR REMOTE [facility] USE) Jack Vogt MD Work Phone: Start: 41-37-1478GFR W/REFLEX W4ElitrcJack Vogt MD Work Phone: Start: 63-99-4539Qnakdgat screenEarl HaleyComment on above:Result Comment: PERFORMED BY: [address] [place] [address] PATHOLOGIST BURNT LIME DRAWER ELIZABETH MOREL M.D.Start: 74-61-7438Gffja chest X-rayDabambi Vogt II Work Phone: Start: 30-27-3092QP of abdomen and pelvis without contrastDabambi Vogt II Work Phone: Start: 61-24-1746Sqwsewprsz glycosylated f8zCuscngJack Vogt MD Work Phone: Start: 39-90-3734AQB CREATININEGeneric External Data ProviderStart: 02-05-2024 End: 32-89-8944Crvonhrax mammography of bilateral breastsII Jack Sin Work Phone: Start: 47-08-1205Rugwsh X-rayII Jack Sin Work Phone: Start: 54-39-3073B-ray of both kneesII Jack Vogt Work Phone: Start: 07-59-9629Wlaagdttr mammography of bilateral breastsII Jack Sin Work Phone: Start: 29-08-1594LcmppgwcxhjHirgndw ProviderStart: 85-65-9685Iohxojf of coronary artery bypass graftingHistory of coronary artery bypass surgeryGeneric ProviderStart: 02-75-6817Tpanrmm of placement of stent for coronary artery diseaseHistory of coronary artery stent placementGeneric ProviderStart: 09-94-7374EYYYRQZST SPIROMETRY RTBO YOOStart: 41-85-9126MODOJ OXIMETRY, CONTINUOUSBO YOOStart: 15-12-5303UXTTNBDTA SPIROMETRY RTBO YOOStart: 11-92-4112CAFLYYCWC SPIROMETRY RTBO YOOStart: 87-88-7788RELEZ OXIMETRY, CONTINUOUSBO YOOStart: 29-36-3433QTWJSSELU SPIROMETRY RTBO YOOStart: 06-07-2018 INCENTIVE SPIROMETRY RTBO YOOStart: 77-50-2009USMXGEZQ OXYGEN THERAPY PROTOCOLBO YOOStart: 58-09-0948TLQDQ OXIMETRY, CONTINUOUSBO YOOStart: 78-20-1041LYTOQRTLJ PATIENTBO YOOStart: 39-31-4901PD CONSULT TO HOME CARE NEEDSBO YOOStart: 23-07-2515QJFWNOPUJ SPIROMETRY RTBO YOOStart: 68-58-2574Hjvlb count complete auto&auto difrntl wbcBO YOOStart: 78-36-1715Qhphvafiltgvq metabolic panelBO DESIRAE Start: 79-39-4878VJYJC OXIMETRY, CONTINUOUSBO YOOStart: 73-19-3575XXFWPM AND OUTPUTBO YOOStart: 93-99-6717BLYIS OXIMETRY, CONTINUOUSBO YOOStart: 06-07-2018 INCENTIVE SPIROMETRY RTBO YOOStart: 25-94-7688UHKCHAEEY SPIROMETRY RTBO DESIRAE Start: 10-93-0943TBEYZ OXIMETRY, CONTINUOUSBO YOOStart: 94-29-7105GGJAWVXSR SPIROMETRY RTBO YOOStart: 53-57-3739WSFMQUMDA SPIROMETRY RTBO YOOStart: 00-66-0843UFIUQ OXIMETRY, CONTINUOUSBO YOOStart: 39-50-9495JCUQCCYRQ SPIROMETRY RTBO YOOStart: 18-95-5787GBGWVDUWA SPIROMETRY RTBO YOOStart: 86-74-8310HCMQN OXIMETRY, CONTINUOUSBO YOOStart: 35-03-9938TFIQKVFLR SPIROMETRY RTBO YOOStart: 11-92-9184IHTVDWPMH SPIROMETRY RTBO YOOStart: 69-21-9891DXVVZXKM OXYGEN THERAPY PROTOCOLBO YOOStart: 76-66-8408WDHUA OXIMETRY, CONTINUOUSBO YOOStart: 06-06-2018 Radiologic exam chest 2 viewsBO YOOStart: 18-92-4813MKKMZODWJ SPIROMETRY RTBO YOOStart: 31-64-0196Nayoa metabolic panel calcium totalBO YOOStart: 06-06-2018 Blood count complete auto&auto difrntl wbcBO YOOStart: 45-02-7587JMMRJ OXIMETRY, CONTINUOUSBO YOOStart: 19-09-7191DKULUF AND OUTPUTBO YOOStart: 27-04-6302PZOJZ OXIMETRY, CONTINUOUSBO YOOStart: 33-16-0229KIHQGVO COMMUNICATIONBO YOOStart: 03-75-0749HAMVCKECA SPIROMETRY RTBO YOOStart: 96-59-4385ESGTDGJAV SPIROMETRY RT SHAKA YOOStart: 74-63-5690JLKBN OXIMETRY, CONTINUOUSBO YOOStart: 06-05-2018 INCENTIVE SPIROMETRY RTBO YOOStart: 22-14-3658KNEACPQKD SPIROMETRY RTBO DESIRAE Start: 28-38-8213AIXCS OXIMETRY, CONTINUOUSBO YOOStart: 12-40-8849QUOYMVVCO SPIROMETRY RTBO YOOStart: 71-19-0953CLXKQZPUM SPIROMETRY RTBO YOOStart: 29-23-5290WVPWZ OXIMETRY, CONTINUOUSBO YOOStart: 51-98-7775JDGMEMSUG SPIROMETRY RTBO YOOStart: 96-20-3276Iimag spine lumbosacral 2/3 viewsBO YOOStart: 47-36-9468GWMISURBE SPIROMETRY RTBO YOOStart: 89-78-2312LJLFP OXIMETRY, CONTINUOUSBO YOOStart: 22-37-8023ZYXOSKSX OXYGEN THERAPY PROTOCOLBO YOOStart: 39-36-7345XGYYMDNJZ SPIROMETRY RTBO YOOStart: 09-41-2366Kvjpv count complete auto&auto difrntl wbcBO YOOStart: 92-60-9617Fhbsjuepypowd metabolic panelBO DESIRAE Start: 60-23-1005CRHXOYD HEELS OFF OF BEDBO YOOStart: 46-16-8646CQUU OF BED 60 DEGREES OR LESSBO YOOStart: 07-44-5758HNXAFNQ COMMUNICATIONBO YOOStart: 55-06-9627LJMO PATIENTBO YOOStart: 50-15-5117YIXBT OXIMETRY, CONTINUOUSBO DESIRAE Start: 02-57-9917YNTHBSVC TOLERATEDBO YOOStart: 60-90-1599ITZLDZCB PATIENTBO YOOStart: 24-18-5466JIGJVIKI REMOVALBO YOOStart: 18-14-6055OVVJB WEIGHTSBO DESIRAE Start: 47-85-1479UVCRSR AND OUTPUTBO YOOStart: 56-33-7006MK EVAL AND TREATBO DESIRAE Start: 79-23-9225MB EVAL AND TREATBO YOOStart: 63-26-3873KDJMD OXIMETRY, CONTINUOUSBO YOOStart: 07-13-0708QNKIFTOBG SPIROMETRY RTBO YOOStart: 06-04-2018 INCENTIVE SPIROMETRY RTBO YOOStart: 02-08-4883FHGSK OXIMETRY, CONTINUOUSBO DESIRAE Start: 43-54-0484NTJHAFBKE SPIROMETRY RTBO YOOStart: 58-00-0403ZFIHM INTERMITTENT PNEUMATIC COMPRESSION DEVICEBO YOOStart: 90-65-8046UGOAA OXIMETRY, CONTINUOUSBO YOOStart: 70-82-5749UGEHTZD DIET TOLERATED (NURSING COMMUNICATION)SHAKA YOOStart: 23-58-1461FWRZSIAR INDWELLING CATHETHERBO YOOStart: 56-57-2158XIBJGMS HOBBO YOOStart: 26-70-1818PAII CODEBO YOOStart: 06-04-2018 INITIATE OXYGEN THERAPY PROTOCOLBO YOOStart: 80-56-4645PFUHUF AND OUTPUTBO DESIRAE Start: 78-56-6032LRXIZ/VASCULAR CHECKSBO YOOStart: 13-52-6922NXMFXX PHYSICIAN (SPECIFY)SHAKA YOOStart: 66-65-0700YZZJCCS CESSATION EDUCATIONBO YOOStart: 42-33-0677TGYNR SIGNSBO YOOStart: 05-97-1782KJXSW CAREBO YOOStart: 06-04-2018 DIET GENERALBO YOOStart: 34-66-4705ZDWGTRVIZ MONITORINGBO YOOStart: 06-04-2018 Blood count complete automatedBO YOOStart: 04-29-8756Ziwzdxboonenw metabolic panelBO YOOStart: 89-48-8641EHURPUI STATUS (FROM ED OR OR/PROCEDURAL)SHAKA DESIRAE Start: 71-62-0292DGLPWXFO PATIENTBO YOOStart: 06-54-4425DWQSJA FOR SURGICAL PROCEDURESBO YOOStart: 58-13-4062WXGUZPTZ PATHOLOGYBO YOOStart: 06-04-2018 SURGICAL PATHOLOGYBO YOOStart: 35-93-2763YUO GLUCOSE FINGERSTICKBO YOOStart: 62-84-6938YJSR GLUCOSEBO YOOStart: 97-89-2416Ecncgle bacterial quanttative colony count urineBO YOOStart: 75-19-5761Cqpwoyaweia urinalysisBO YOOStart: 45-36-2552RWNX AND SCREENBO YOOStart: 50-16-1062Lxf prsmptv pthgnc organism scrn w/colony estimjBO YOOStart: 44-73-5904Bgtfp entir thrc lmbr crv sac spi w/skull 2/3 vwBO YOOStart: 93-49-9196Naxwy count complete automatedBO YOOStart: 64-01-1506Fubkffwpnvc timeBO YOOStart: 61-28-3429EQYFW RT REFLEX TO CULTUREBO YOOStart: 07-41-2826Ftcdh metabolic panel calcium totalBO YOOStart: 05-23-2018 EKG 12-LEADBO YOOCholecystectomyPatrick MOOVIA ColonoscopyPaSaatchi Art Procedure on backPaGenomics USAk MOOVIA TonsillectomySocii Plan of Treatment DateCare ActivityDetailAuthorStart: 03-50-3915Dpuexjgdw for malignant neoplasm of colonNOMS HealthcareStart: 03-27-2026Medicare Annual Wellness (AWV)Medicare Annual Wellness (AWV)NOMS HealthcareStart: 06-27-2025 End: 96-60-0835Vfpgvtl encounter pvdoybuap82/10/2025 12:00 PM EDT [facility] Visit [facility] [address] [place] [address] 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, SOLAR SALES ADVISOR [address] [place] [address] [facility] ACOStart: 06-23-2025 End: 45-45-1762Zadpmim encounter qghuvyrvh09/06/2025 3:30 PM EDT Office [facility] [place] [facility] [address] [place] [id number] Jack Vogt MD [address] [place], [place] [id number] NOMBryanna Champion MedinceStart: 06-09-2025 End: 80-62-6933Jyusimmzolsfy metabolic 2000 panel - Serum or PlasmaComprehensive metabolic panel Lab Routine Chronic kidney disease, stage 4 (severe) (HCC) Expected: 06/09/2025 (Approximate), Expires: 06/09/2026NOOH HealthcareComment on above:Expected: 06/09/2025 (Approximate), Expires: 06/09/2026Start: 06-09-2025 End: 69-50-9286Cuysgigoatt peptide B [Mass/volume] in BloodB-type natriuretic peptide Lab Routine Chronic kidney disease, stage 4 (severe) (HCC) Chronic diastolic congestive heart failure (HCC) Expected: 06/09/2025 (Approximate), Expires: 06/09/2026[facility] Work Phone: Comment on above:Expected: 06/09/2025 (Approximate), Expires: 06/09/2026Start: 06-09-2025 End: 08-67-6112NEO W/REFLEX TO FT4TSH W/REFLEX TO FT4 Lab Routine Chronic kidney disease, stage 4 (severe) (HCC) Expected: 06/09/2025(Approximate), Expires: 06/09/2026[facility] HealthcareComment on above:Expected: 06/09/2025 (Approximate), Expires: 06/09/2026Start: 06-09-2025 End: 77-12-8398Lqhmeqe encounter /22/2025 11:15 AM EDT Office [facility] [place] [facility] [address] [place] [address] Jack Vogt MD [address] [place] [address] ArrivedNOMS [place] Champion MedinceComment on above:ArrivedStart: 05-26-2025 End: 98-76-2635Hwkgsei encounter cmmxbulvu82/08/2025 3:30 PM EDT Office Visit NOMBryanna [facility] [address] [place] [address] Jack Vogt MD [address] [facility] [address] [place] [address] [facility] FMStart: 55-57-4340Huguynhyc vaccinationST. GEORGE REGIONAL HOSPITAL HealthcareStart: 30-35-5035EnehshprtSelect Medical Special[facility], Inctart: 04-10-2025 Referral to rehabilitation physicianSelect [facility], Inctart: 70-07-0472OybsomgwaSelect Medical Specialty Hospital [facility], Inctart: 20-38-9681GjnvztiliSelect Medical Specialty Hospital [facility], Inctart: 63-84-3802Onewdufr therapy procedureSelect Medical Specialty [facility], Inctart: 99-69-0058Uairxcbe to occupational therapistSelect Medical [facility], Inctart: 77-44-5115LqxrnpcozSelect Medical Specialty [facility], Inctart: 76-47-5425Oegjiiac to gastroenterologistSelect Medical [facility], Inctart: 32-09-2578Gtqoymsg to nephrologistSelect Medical [facility]ty [facility], Inctart: 04-15-5824Gaotobwn admissionSelect Medical Specialty [facility], Inctart: 04-02-2025 End: 35-57-8350UHG W Auto Differential panel - BloodCBC and differential Lab Routine Benign essential hypertension Chronic kidney disease, stage 4 (severe) (HCC) Localized edema Expected: 04/02/2025 (Approximate), Expires: 04/02/2026 [facility] Work Phone: Comment on above:Expected: 04/02/2025 (Approximate), Expires: 04/02/2026Start: 04-02-2025 End: 06-90-5080Adzwdehgniuzp metabolic 2000 panel - Serum or PlasmaComprehensive metabolic panel Lab Routine Benign essential hypertension Chronic kidney disease, stage 4 (severe) (HCC) Localized edema Expected: 04/02/2025 (Approximate), Expires: 04/02/2026[facility] HealthcareComment on above:Expected: 04/02/2025 (Approximate), Expires: 04/02/2026Start: 04-02-2025 End: 80-98-9228WXXHMYPETC, COMPLETE W/REFLEX TO CULTUREURINALYSIS, COMPLETE W/REFLEX TO CULTURE Lab Routine Right flank pain Expected: 04/02/2025 (Approxim ate), Expires: 04/02/2026[facility] HealthcareComment on above:Expected: 04/02/2025 (Approximate), Expires: 04/02/2026Start: 94-95-0683Uhulgpdqol A1c measurement Diabetes: Hemoglobin Y1QGKOV HealthcareStart: 02-25-2025 End: 51-45-3313WQS Skeletal system Views for bone densityDEXA bone density Imaging Routine Decreased estrogen level Expected: 02/25/2025, Expires: 02/25/2026NOOH HealthcareComment on above:Expected: 02/25/2025, Expires: 02/25/2026Start: 02-25-2025 End: 11-97-1404CW Thyroid glandUS thyroid Imaging Routine Thyroid nodule (CMS/HCC) Hair loss Other fatigue Weight loss Expected: 02/25/2025, Expires: 02/25/2026[facility] Work Phone: Comment on above:Expected: 02/25/2025, Expires: 02/25/2026Start: 02-25-2025 End: 79-43-2472Gnshrtz encounter gfpujwqlu46/10/2025 11:30 AM EDT Office Visit [facility] [address] [facility] [address] [place] [address] Renetta Moncada NP [address] [facility] [address] [place] [address] ArrivedNOMS CI FMComment on above:ArrivedStart: 73-42-9954Wkfdjlarm for malignant neoplasm of breastMammogramNOOH Healthcare Start: 01-02-2025 End: 52-00-2096Vlynscm encounter bnjuthrmq12/17/2025 9:30 AM EDT Office Visit [facility] [address] [facility] [address] [place] [address] Jack Vogt MD [address] [facility] [address] [place] [address] NOMS CI FMStart: 12-12-2024 End: 46-28-4840Nuoulvndenlju metabolic 2000 panel - Serum or PlasmaComprehensive metabolic panel Lab Routine Stage 3b chronic kidney disease (HCC) ([facility]/HCC) Expected:12/12/2024 (Approximate), Expires: 12/12/2025NOOH HealthcareComment on above:Expected: 12/12/2024 (Approximate), Expires: 12/12/2025Start: 12-12-2024 End: 45-80-2979Mlufv 1996 panel - Serum or PlasmaLipid panel Lab Routine Type 2 diabetes mellitus with diabetic peripheral angiopathy without gangrene ([facility]) Expected: 12/12/2024 (Approximate), Expires: 12/12/2025NOOH HealthcareComment on above:Expected: 12/12/2024 (Approximate), Expires: 12/12/2025Start: 03-27-2025Medicare Annual Wellness (AWV)Medicare Annual Wellness (AWV)[facility] HealthcareStart: 12-12-2024 End: 89-98-3118Tcmcljkghwe [Units/volume] in Serum or PlasmaTSH Lab Routine Localized edema Expected: 12/12/2024 (Approximate), Expires: 12/12/2025[facility] Healthcare Work Phone: Comment on above:Expected: 12/12/2024 (Approximate), Expires: 12/12/2025Start: 12-12-2024 End: 92-31-8006Zxjwykovg (T4) free [Mass/volume] in Serum or PlasmaT4, free Lab Routine Localized edema Expected: 12/12/2024 (Approximate), Expires: 12/12/2025 [facility] HealthcareComment on above:Expected: 12/12/2024 (Approximate), Expires: 12/12/2025Start: 12-12-2024 End: 34-58-6593Gzicqseticifvrcg (T3) Free [Mass/volume] in Serum or PlasmaT3, free Lab Routine Localized edema Expected: 12/12/2024 (Approximate), Expires: 12/12/2025[facility] HealthcareComment on above:Expected: 12/12/2024 (Approximate), Expires: 12/12/2025Start: 71-55-0121Ibqsd screening for proteinDiabetes: Urine Protein ScreeningST. [facility] HealthcareStart: 12-12-2024 End: 37-04-4563Rarlqbh encounter vyglumrjf48/27/2025 11:30 AM EDT Office Visit [facility] [address] [facility] [address] [place] [id number] Jack Vogt MD [address] [facility] [address] [place] [address] [facility] FMStart: 12-14-8778Qytxgeti screeningDiabetes: Retinopathy ScreeningNOOH HealthcareStart: 87-29-5020Szuychheqa A1c measurement Diabetes: Hemoglobin M2GCZEF HealthcareStart: 47-43-1551Pmnofmrpa vaccination Influenza Vaccine (#1)[facility] HealthcareStart: 01-37-3630Kcrnjuzwn for malignant neoplasm of colonNOOH HealthcareAlbumin/Globulin ratioTrinity Health System West CampusAnion gap measurementTrinity Health System West CampusaPTT in Platelet poor plasma by Coagulation assayTrinity Health System West CampusBasophils [#/volume] in Blood by Automated countTrinity Health System West Campus Basophils/100 leukocytes in Blood by Automated [facility] CampusCBC W Auto Differential panel - BloodCBC and differential Lab Routine Stage 3b chronic kidney disease (HCC) (CMS/HCC) Ordered: 12/12/2024[facility] HealthcareComment on above:Ordered: 12/12/2024BC W Auto Differential panel - BloodCBC and differential Lab Routine Chronic kidney disease, stage 4 (severe) (HCC) Ordered: 06/09/2025[facility] HospitalComment on above:Ordered: 06/09/2025 Eosinophils/100 leukocytes in Blood by Automated countTrinity Health System West CampusErythrocyte distribution width [Ratio] by Automated countTrinity Health System West CampusErythrocytes [#/volume] in [facility] Clinic FoundationGlobulin [Mass/volume] in SerumTrinity Health System West Campus Hematocrit [Volume Fraction] of [facility] FoundationHemoglobin [Mass/volume] in [facility] FoundationINR in Platelet poor plasma by Coagulation assayTrinity Health System West CampusLeukocytes [#/volume] corrected for nucleated erythrocytes in Blood by Automated coun [facility] CampusLeukocytes [#/volume] in [facility] FoundationLymphocytes [#/volume] in Blood by Automated count [facility] CampusLymphocytes/100 leukocytes in Blood by Automated [facility] CampusMCH [Entitic mass] by Automated [facility] CampusMCHC [Mass/volume] by Automated count [facility] CampusMCV [Entitic volume] by Automated count [facility] CampusMonocytes [#/volume] in Blood by Automated [facility] CampusMonocytes/100 leukocytes in Blood by Automated [facility] CampusNeutrophils [#/volume] in Blood by Automated [facility] CampusNeutrophils/100 leukocytes in Blood by Automated [facility] CampusNucleated erythrocytes [Presence] in Blood by Automated [facility] CampusPatient EducationHope PamphletLouis Stokes [facility]tr Work Phone: Patient referralLouis Stokes Cleveland [facility] Work Phone: Platelet mean volume [Entitic volume] in Blood by Automated [facility] CampusPlatelets [#/volume] in Blood [facility] CampusProthrombin time (PT)[facility] CampusRenal function 1999 panel - Serum or PlasmaAdventHealth for Children Immunizations Immunization DateImmunizationNotesCare WubypnmtVzscsqqc74-47-9705woueewiox virus vaccine, unspecified formulationMoSaatchi Art [facility] [place]10-17-2022Influenza, Seasonal, Quadrivalent, AdjuvantedGeneric Provider [facility] Pnunykftno70-55-8426Gmdrasv Bivalent Booster VaccinationGeneric Provider [facility] Odoozkykqa11-91-4036CEVG-ZrO-5 (COVID-19) mRNAMUL.ORD!l20212Bwhblfk WATERS [facility] [place]10-07-2021influenza virus vaccine, unspecified formulationSocii [facility] [place]10-07-2021Influenza, High-dose Seasonal, Quadrivalent, Preservative Free Generic [facility] HealthYwcsdhvzbf26-89-8469EWXP-UlM-7 (COVID-19) mRNA BNT-162b2 [employer] [facility] on above:Result Comment: 2022-09-26: [id number]-DfZ-6 (COVID-19) mRNA BNT-162b2 [employer] [facility] on above:Result Comment: 2022-09-26: [id number]-ZrG-6 (COVID-19) mRNA BNT-162b0 [employer] [facility] on above:Result Comment: 2022-09-26: [id number] virus vaccine, unspecified formulationSocii [facility]10-21-2020Influenza, Seasonal, Quadrivalent, AdjuvantedGeneric Provider [facility] HospitalIvjgqtfsnm73-60-1503Ngndkejv Monkeypox, Live Attenuated, Preservative Free Generic MultiCare HealthPmutzkpyrd94-36-9601efzfasjbmiph polysaccharide vaccine, 23 valentGeneric ProviderLiberty Hospital Payers DatePayer CategoryPayerPolicy [id number] 2023Medicare (Managed Care) [id number] [id number] [id number] 1960Private Health [id number] 2.16.840.1.213813.3.579.2.[id number] 2.16.840.1.996898.3.579.2.25394-92-3694Epjdfes8504983 2.16.840.1.780846.3.579.2.45921-42-7859Cdfpjur1041674 2.16.840.1.899172.3.579.2.13179-92-0709Ekxqilb2187420 2..840.1.971769.3.579.2.54853-98-9000Prdoubj6407261 2..840.1.656571.3.579.2.39715-21-4588Eqiacdq8231003 2.840.1.448195.3.579.2.11172-50-8763Tseodew5741525 2..840.1.970122.3.579.2.22908-69-9393Sxwmfxh5843810 2..840.1.606232.3.579.2.35033-59-6788Asprvev7851821 2..840.1.563042.3.579.2.87042-99-1380Autgafb80785175 2.840.1.568056.3.579.2.32719-35-4024Mewnfge67415409 2..840.1.523879.3.579.2.30491-02-8503Wtbuywg16459957 2.16.840.1.705632.3.579.2.14566-55-6851Webqisn89840450 2.16840.1.000305.3.579.2.40205-61-6000Ongyypv66178766 2..0.1.321526.3.579.2.54648-06-2365Erclzgn54728440 2..0.1.457613.3.579.2.829267-13-8055Lxovfjc89139809 2..840.1.034808.3.579.2.074286-05-0756Vxvmduy82266276 2..0.1.847675.3.579.2.327228-35-0885Fkkiimw3406679 2..0.1.126085.3.579.2.012155-78-0110Lpwaarn7825605 2..0.1.154891.3.57[id number] Health InsuranceUnited Healthcare [id number] BC/[id number] 3r07188c-s91v-0746-86u0-f75lopymu429Gksknia66028150 2.0.1.626612.3.579.2.531 Social History DateTypeDetailFacilityStart: 03-25-2021 End: 37-66-1133Jzjhvzs smoking status NHISEx-smoker (finding)[facility], Inctart: 03-20-2024 End: 88-24-3595Pctyavt of tobacco useOhiohealth Grant Medical Center Work Phone: Start: 90-86-2030Cbw Assigned At BirthChillicothe Hospitaltart: 27-84-4591Gbmhdbz smoking statusNeverExecutive Urology of [facility] BellevueStart: 06-63-0080Ghyfyht smoking status NHISNever smoked tobaccoNOMS HealthcareStart: 22-56-0205Vpqvafd use and exposureSmokeless tobacco non-userNOOH HealthcareStart: 03-20-2024 End: 98-19-9752Ckvfjmbus beverage intakeNot AskedST. [facility]ORGE REG[facility]AL [facility]ITAL HealthcareStart: 03-20-2024 End: 91-17-5635Vqvirgv of Social functionST. GEORGE REGIONAL HOSPITAL HealthcareStart: 30-02-5097Dqysptp Commentcaffeine yes type:coffeeST. GEORGE REGIONAL HOSPITAL HealthcareStart: 40-02-0134Xyi assigned at birthNot on fileST. GEORGE REGIONAL HOSPITAL HealthcareStart: 49-07-1904Kdxglpf smoking status NHIS Current some day smokerSelect [facility], IncexFemale (finding) [facility], Inctart: 04-09-2025 End: 37-98-7538JEBH Follow upSDOH Follow upOhiohealth Grant Medical Center Work Phone: NEGATED: Highlighted rowTrinity Health System West Campus Goals DatePatient GoalDesired Activity/StatePersonal health goal Functional Status SzvbBrqslhdcewKamdpgImskcdyf38-96-0644Peufwik Health Questionnaire 2 item (PHQ- 2) [Reported]Liber[facility] HospitalXahxyuutuh85-47-6301ZPJ-3 quick depression assessment panel [Reported.PHQ]L[facility]ty HospitalOuguyizszf22-24-8564Hgvoqszute StatusN/AExec[facility] of [facility] [place]07-02-2024Functional StatusN/AExec[facility] [place]02-05-2024Functional StatusN/A [facility] [place]01-09-2023Functional StatusN/AExec[facility] [place]06-17-2022 Functional StatusN/AExec[facility] [place] [facility] Clinical Notes 03-04-2022 to 06-27-2025 Note Date & BmzfHxfaPenmvwwn70-68-0166 History of Present illness Narrative* 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 NP - 06/27/2025 12:00 PM EDT Images from the original note were not included. Patient Demographics: Marleni Dennis Date of : 1950 Chief Complaint Patient presents with F2F for home health HPI Patient is being seen today in her home after not being able to make it into the office for her 06/23/[address] Vogt due to lack of transportation. Pt is being seen for a f2f for initiation [facility]. Patient reports that she had not seen nephrology since prior to her 03/2025 hospitalization, but hasan appt with them on 07/15/25. She also has a cardiology visit scheduled for 07/04/25. She admits that she has not been checking her blood pressure. She does have family check in on her frequently and her tmngiwut-fx-xri is filling her pill boxes for her. [...] sister has brought her some foods from [employer] such as soup, banana bread, quiche, and fruit. Most of her in home meal prep is limited to warming meals up, ormaking simple things such as scrambled eggs, upper sorbian toast, etc. Pt has lost considerable weight [...] would be sent. Also discussed referral to battery engineer. She states she will wait until after her nephrology appt. 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 Denies any recent falls. 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 She also [...] bilateral femoral stent FEMORAL ARTERY STENT Bilateral MI REMOVE TONSILS/ADENOIDS,12+ Y/O SPINE SURGERY fusion of [...] 1328 BP: 148/60 Pulse: 66 Temp: 97.5 F SpO2: 98% Physical Exam [...] up scheduled for 07/04/25 3. Atherosclerosis of [place] coronary artery of [place] heart with stable angina pectoris This is [...] confined to the home and needs intermittent retirement care physical therapy occupational therapy. I have initiated the establishment of the plan of care. The patient will be followed by a physician, Dr. Vogt, who will periodically review the plan of care. The findings from this lkgc-gv-uhgg encounter have been communicated with the patient's [...] or fail to improve. documented in this encounterLiberty HospitalLvzoccnvcm81-66-5811 Telephone encounter Note* Telephone Encounter - 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 NP - 06/27/2025 9:35 AM EDT Call returned. Explained that itoday's visit would be a home visit for a f2f for home health and DIL states they do not want to cancel. She states that she has spoken to her and TEJ re: healthcare POA for pt and that they should be the talking to pt re: Liberty HospitalKhgktotsbv19-03-3744 Telephone encounter Note* Telephone Encounter - 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 NP - 06/27/2025 9:35 AM EDT VM received: Good morning. My name is Fabby Meyers, I am calling on behalf of my mother in law who I believe has an appointment scheduled today at noon, her name is Marleni Dennis and date of 1950, her phone number is [phone] [facility] [id number] We were unaware that I believe probably Dr. Grover's office made this appointment for my mother in law. She just received a notification for it last night on her phone. This is an appointment that we as her children would like to attend with her. Unfortunately, we did not have any notice, but we would really like to still be able to keep the appointment, so I did not want her to be a no call, no show. So if someone can, please call me. At the earliest convenience, it is [phone]. My name is Fabby, I am to her son, Tarun. I mean, you can also call Marleni to confirm this. Information, if you like. I gave the phone number for her as well, thank you. Liberty HospitalHfvbvdnrko65-50-6064 Miscellaneous Notes* Telephone Encounter - 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 NP - 06/27/2025 9:35 AM EDT Call returned. Explained that itoday's visit would be a home visit for a f2f for home health and DIL states they do not want to cancel. She states that she has spoken to her and TEJ re: healthcare POA for pt and that they should be the talking to pt re: * Telephone Encounter - 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 NP - 06/27/2025 9:35 AM EDT VM received: Good morning. My name is Fabby Meyers, I am calling on behalf of my mother in law who I believe has an appointment scheduled today at noon, her name is Marleni Dennis and date of 1950, her phone number is [phone] last [id number] We were unaware that I believe probably Dr. Grover's office made this appointment for my mother in law. She just received a notification for it last night on her phone. This is an appointment that we as her children would like to attend with her. Unfortunately, we did not have any notice, but we would really like to still be able to keep the appointment, so I did not want her to be a no call, no show. So if someone can, please call me. At the earliest convenience, it is [phone]. My name is Fabby, I am to her son, aTrun. I mean, you can also call Marleni to confirm this. Information, if you like. I gave the phone number for her as well, thank you. documented in this encounterLiberty HospitalOzneiszfef19-99-6660 History of Present illness Narrative* Jack Vogt MD - 06/09/2025 11:15 AM EDT Images from the original note were not included. Subjective Patient ID: Marleni Dennis is a 74 y.o. female who presents for Weight Loss. Pt weight today was 129# Last office visit she was 144# Pt states she has had decreased appetite, diarrhea,nausea x 3 months Immodium helps with diarrhea Current Outpatient Medications on File Prior to Visit Medication Sig Dispense Refill apixaban (Eliquis) 2.5 MG tablet Take 1 tablet (2.5 mg) by mouth in the morning and 1 tablet (2.5 mg) before bedtime. 200 tablet 3 aspirin 81 MG EC tablet Take 81 mg by mouth Daily carvedilol (Coreg) 25 MG tablet Take 1 tablet (25 mg) by mouth in the morning and 1 tablet (25 mg) in the evening. Take with meals. 180 tablet 3 cloNIDine (Catapres) 0.1 MG tablet Take 1 tablet (0.1 mg) by mouth in the morning and 1 tablet (0.1mg) in the evening and 1 tablet (0.1 mg) before bedtime. 270 tablet 3 doxazosin (Cardura) 2 MG tablet Take 1 tablet (2 mg) by mouth in the morning. 30 tablet 3 escitalopram (Lexapro) 5 MG tablet Take 1 tablet (5 mg) by mouth in the morning. 30 tablet 3 ezetimibe (Zetia) 10 MG tablet TAKE 1 TABLET BY MOUTH EVERY DAY 90 tablet 3 fenofibrate (Tricor) 145 MG tablet TAKE 1 TABLET BY MOUTH EVERY DAY 90 tablet 4 furosemide (Lasix) 40 MG tablet Take 40 mg by mouth in the morning and 40 mg before bedtime. hydrALAZINE (Apresoline) 100 MG tablet Take 1 tablet (100 mg) by mouth in the morning and 1 tablet (100 mg) in the evening and 1 tablet (100 mg) before bedtime. 90 tablet 11 isosorbide mononitrate ER (Imdur) 30 MG 24 hr tablet Take 30 mg by mouth Daily NIFEdipine XL (Procardia XL) 90 MG 24 hr tablet Take 1 tablet (90 mg) by mouth in the morning and 1tablet (90 mg) before bedtime. 180 tablet 3 nitroglycerin (Nitrostat) 0.[address] 1 tablet (0.4 mg) under the tongue every 5 (five) minutes if needed for chest pain 90 tablet 12 pantoprazole (ProtoNix) 40 MG EC tablet Take 1 tablet (40 mg) by mouth Daily 90 tablet 3 traMADol (Ultram) 50 MG tablet Take 1 tablet (50 mg) by mouth every 8 (eight) hours if needed for severe pain 60 tablet 2 zolpidem (Ambien) 5 MG tablet Take 1 tablet (5 mg) by mouth as needed at bedtime for sleep 30 tablet 5 No current facility-administered medications [...] bilateral femoral stent FEMORAL ARTERY STENT Bilateral MI REMOVE TONSILS/ADENOIDS,12+ Y/O SPINE SURGERY fusion of lower spine TONSILLECTOMY Visit Vitals BP 160/84 Pulse 57 Ht 5' 2 Wt 129 lb SpO2 98% BMI 23.59 kg/m Smoking Status Never BSA 1.6 m Review of Systems Objective Physical Exam Vitals and nursing note reviewed. Constitutional: Appearance: Normal appearance. HENT: Head: Normocephalic. Cardiovascular: Rate and Rhythm: Normal rate and regular rhythm. Heart sounds: Murmur heard. Pulmonary: Effort: Pulmonary effort is normal. No respiratory distress. Breath sounds: Normal breath sounds. No wheezing, rhonchi or rales. Abdominal: General: Bowel sounds are normal. Palpations: Abdomen is soft. Musculoskeletal: Right lower leg: Edema present. Left lower leg: Edema present. Skin: General: Skin is warm and dry. Neurological: General: No focal deficit present. Mental Status: She is alert and oriented to person, place, and time. Gait: Gait abnormal. Psychiatric: Mood and Affect: Mood normal. Behavior: Behavior normal. Clinisync Result Encounter on 06/09/2025 Component Date Value Ref Range Status SODIUM 06/09/2025 143 136 - 145 mmol/L Final POTASSIUM 06/09/2025 3.0 (L) 3.5 - 5.1 mmol/L Final CHLORIDE 06/09/2025 102 98 - 107 mmol/L Final CARBON DIOXIDE 06/09/2025 29.5 21.0 - 32.0 mmol/L Final ANION GAP 06/09/2025 14.5 Final GLUCOSE 06/09/2025 99 74 - 106 mg/dL Final BLOOD UREA NITROGEN 06/09/2025 64.0 (H) 7.0 - 18.0 mg/dL Final CREATININE 06/09/2025 3.80 (H) 0.55 - 1.02 mg/dL Final TBH EGFR-AF GAMBIAN 06/09/2025 14 (L) >=60 mL/min/1.73m 2 Final TBH EGFR-NON AF GAMBIAN 06/09/2025 12 (L) >=60 mL/min/1.73m 2 Final BUN CREATININE RATIO 06/09/2025 16.8 Final CALCIUM 06/09/2025 6.8 (L) 8.5 - 10.1 mg/dL Final BILIRUBIN TOTAL 06/09/2025 0.8 0.2 - 1.0 mg/dL Final ASPARTATE AMINO TRANSFERASE 06/09/2025 35 15 - 37 U/L Final ALANINE AMINOTRANSFERASE 06/09/2025 10 (L) 14 - 59 U/L Final ALKALINE PHOSPHATASE 06/09/2025 30 (L) 46 - 116 U/L Final TOTAL PROTEIN 06/09/2025 7.2 6.4 - 8.2 g/dL Final ALBUMIN LEVEL 06/09/2025 3.4 3.4 - 5.0 g/dL Final GLOBULIN 06/09/2025 3.8 g/dL Final ALBUMIN GLOBULIN RATIO 06/09/2025 0.9 Final NT PRO B TYPE NATRIURETIC PEPT 06/09/2025 18,501.0 (HH) <=1,800.0 pg/mL Final RESULTS CALLED TO CARO ALONZO MA TSH 06/09/2025 4.130 (H) 0.358 - 3.740 uIU/mL Final TBH WBC 06/09/2025 2.9 (L) 4.0 - 11.0 10 3/uL Final TBH RBC 06/09/2025 3.39 (L) 4.20 - 5.40 10 6/uL Final TBH HGB 06/09/2025 9.7 (L) 12.0 - 16.0 g/dL Final TBH HCT 06/09/2025 29.3 (L) 36.0 - 48.0 % Final TB[facility] MCV 06/09/2025 86.4 81.0 - 99.0 fL Final TBH MCH 06/09/2025 28.6 26.7 - 34.0 pg Final TBH MCHC 06/09/2025 33.1 29.9 - 35.2 g/dL Final TBH RDW 06/09/2025 16.3 (H) 11.0 - 15.0 % Final TBH PLT 06/09/2025 155 150 - 450 10 3/uL Final TBH MPV 06/09/2025 11.1 9.5 - 13.5 fL Final NEUTROPHILS PERCENT AUTO 06/09/2025 57.7 43.0 - 75.0 % Final LYMPHOCYTES PERCENT AUTO 06/09/2025 29.6 20.5 - 60.0 % Final MONOCYTES PERCENT AUTO 06/09/2025 9.3 1.7 - 12.0 % Final TBH EO % 06/09/2025 2.4 0.9 - 7.0 % Final BASOPHILS PERCENT AUTO 06/09/2025 0.7 0.2 - 2.0 % Final IMMATURE GRANULOCYTES PCT AUTO 06/09/2025 0.3 0.0 - 0.5 % Final NEUTROPHILS ABSOLUTE AUTO 06/09/2025 1.7 1.4 - 6.5 10 3/uL Final LYMPHOCYTES ABSOLUTE AUTO 06/09/2025 0.9 (L) 1.2 - 3.8 10 3/uL Final MONOCYTES ABSOLUTE AUTO 06/09/2025 0.3 0.3 - 0.8 10 3/uL Final TBH EO # 06/09/2025 0.1 0.0 - 0.7 10 3/uL Final BASOPHILS ABSOLUTE AUTO 06/09/2025 0.0 0.0 - 0.1 10 3/uL Final IMMATURE GRANULOCYTES ABS AUTO 06/09/2025 0.01 0.00 - 0.03 10 3/uL Final FREE T4 06/09/2025 1.28 0.76 - 1.46 ng/dL Final Assessment/Plan Diagnoses and all orders for this visit: Chronic kidney disease, stage 4 (severe) (HCC) - B-type natriuretic peptide; Future - Comprehensive metabolic panel; Future - TSH W/REFLEX TO FT4; Future - CBC and differential - Will likely need dialysis at some point. Seeing Urology. Benign essential hypertension Functional diarrhea - Using Immodium. May try Xifaxan if that fails. 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 Do all this for 7 days. Do not crush or chew. - Likely due to her diarrhea. Take Potassium for 7 days ONLY given her CKD. - This office visit was spent in consultation regarding the patient's current medical problems, differential diagnoses, testing/imaging results, and treatment options. Greater than 45 minutes was spent in oifm-ey-uwwl consultation and coordination of care. Follow up in about 2 weeks (around 06/23/2025). documented in this encounterLiberty HospitalAoiifoxrlm53-75-0388 History and physical note Author Rajiv Trejo [facility] System West CampusNote Date/TimeJuly 2024 11:50pm[place] [address] Hospitalist H&P Signed Patient: Marleni Dennis MR#: [id number] : 1950 Acct:[id number] Age/Sex: 74 / F Adm Date: 5 Loc: Room: 3M4712-1 Type: ADM IN Attending Dr: Rajiv Trejo [...] anemia. Patient follows with her PCP in [place] and was referred to nephrology clinic for [...] negative unless noted below or in HPI COUNTS [facility]CLUDE [facility] Medical History Iron deficiency anemia Former smoker [...] (From Pneumovax-23) Allergy (Verified 04/08/25 18:01) Edema Oxbeelr-AQT-YsL Reductase Inhibitor (Iejivql-Bfq-Brg Reductase Inhibitor) Allergy (Verified 04/08/25 18:01) Unknown [...] % (Auto) 23.3 % (.) 04/08/25 18:54 [place] % (Auto) 10.0 % (.) 04/08/25 18:54 Eos % (Auto) 2.6 % (.) 04/08/25 18:54 Baso % (Auto) 1.0 % (.) 04/08/25 18:54 Nucleat RBC Rel Count 0.1 /100 WBC (0-0.5) 04/08/25 18:54 Neut # (Auto) 2.8 x10E3/uL (1.8-7.7) 04/08/25 18:54 Lymph # (Auto) 1.0 x10E3/uL (1.00-4.8) 04/08/25 18:54 [place] # (Auto) 0.4 x10E3/uL (0.0-0.8) 04/08/25 18:54 [...] pH 6.5 (5.0-9.0) 04/08/25 19:50 Ur Specific [place] 1.006 (1.001-1.030) 04/08/25 19:50 Urine Protein 50 [...] days): 3 Documented By: Rajiv Trejo MD 04/08/25 22 Signed By: <Electronically signed by Rajiv Trejo MD> 04/08/25 [address] [facility] Work Phone: 1(954) 532-806707-22-2025 History and physical [place] [id number] Hospitalist H&P Signed Patient: Marleni Dennis MR#: [id number] : 1950 Acct:[id number] Age/Sex: 74 / F Adm Date: 5 Loc: Room: [address] [place] [address] Type: ADM IN Attending Dr: Rajiv Trejo [...] anemia. Patient follows with her PCP in [place] and was referred to nephrology clinic for [...] negative unless noted below or in HPI COUNTS INCLUDE [facility] Medical History Iron deficiency anemia Former smoker [...] (From Pneumovax-23) Allergy (Verified 04/08/25 18:01) Edema Bwhaklv-ZPJ-QsN Reductase Inhibitor (Uublihn-Lpz-Vwg Reductase Inhibitor) Allergy (Verified 04/08/25 18:01) Unknown [...] % (Auto) 23.3 % (.) 04/08/25 18:54 [place] % (Auto) 10.0 % (.) 04/08/25 18:54 Eos % (Auto) 2.6 % (.) 04/08/25 18:54 Baso % (Auto) 1.0 % (.) 04/08/25 18:54 Nucleat RBC Rel Count 0.1 /100 WBC (0-0.5) 04/08/25 18:54 Neut # (Auto) 2.8 x10E3/uL (1.8-7.7) 04/08/25 18:54 Lymph # (Auto) 1.0 x10E3/uL (1.00-4.8) 04/08/25 18:54 [place] # (Auto) 0.4 x10E3/uL (0.0-0.8) 04/08/25 18:54 [...] pH 6.5 (5.0-9.0) 04/08/25 19:50 Ur Specific [place] 1.006 (1.001-1.030) 04/08/25 19:50 Urine Protein 50 [...] Trejo MD 04/08/2509 11 Signed By: 04/08/25 7572 [facility]07-22-2025 Radiology Diagnostic study note [facility] Main [place] [address] [place] [address] CT Scan Report Signed Patient: Marleni Dennis MR#: [id number] : 1950 Acct:[id number] Age/Sex: 74 / F ADM Date: 5 Loc: ER Room: Type: [facility] ER Attending Dr: Copies to: Sohail [...] Garnett M.D. 04/08/2025 8:27 PM Dictation Location: [place] [address] Transcribed By: [facility] 04/08/252026 Dictated By: Derek Garnett DO 04/08/252018 Signed By: 04/08/252026 [facility]07-22-2025 Evaluation note* Diagnosis Onset Date Resolution Status Admit Date TOMASA (acute kidney injury) acuteJuly 2024 3:58pmAnemiaacuteJuly 2024 3:58pmChronic kidney disease, stage IV (severe)acuteJuly 2024 3:58pmHypertensive nephropathy acuteJuly 2024 3:58pmProteinuriaacuteJuly 2024 3:58pmAcute kidney injury superimposed on CKDacuteJuly 2024 9:16pmAnemiaacuteJuly 2024 9:16pmFluid overloadacuteJuly 2024 9:16pmHypertensive emergencyacuteJuly 2024 9:16pmHypertensive nephropathyacuteJuly 2024 9:16pmLower GI bleedacuteJuly 2024 9:16pmMelenaacuteJuly 2024 9:16pm [facility] Work Phone: 1(878) 962-452607-22-2025 Evaluation note* Diagnosis Onset Date Resolution Status Admit Date TOMASA (acute kidney injury) acuteJuly 2024 3:58pmAnemiaacuteJuly 2024 3:58pmChronic kidney disease, stage IV (severe)acuteJuly 2024 3:58pmHypertensive nephropathy acuteJuly 2024 3:58pmProteinuriaacuteJuly 2024 3:58pmAcute kidney injury superimposed on CKDacuteJuly 2024 9:16pmAnemiaacuteJuly 2024 9:16pmChronic kidney disease, stage IV (severe)acuteJuly 2024 9:16pmFluid overloadacuteJuly 2024 9:16pmHypertensive emergencyacuteJuly 2024 9:16pmHypertensive nephropathyacuteJuly 2024 9:16pmLower GI bleedacuteJuly 2024 9:16pmMelenaacuteJuly 2024 9:16pmProteinuriaacuteJuly 2024 9:16pmWeakness generalizedacuteJuly 2024 9:16pm [facility] Work Phone: 1(293) 604-734407-18-2025 NoteSUBJECTIVE Reason for Visit: Marleni Dennis is [...] and hx of DVT/PE. 03/12/2025 admitted to [facility] (initially presented to [facility]) for hypertension emergency. Systolics were as high as 250, lab work revealed elevated troponin without immediate concern for extreme changes on EKG. CT head was negative for acute process. Placed on Cardene drip initially. Nephrology was also consulted due to the patient's worsening TOMASA. 04/04/2025 office visit: Patient seen evaluated in the office today, accompanied by her lhzsvpan-wz-nhl. She denies chest pain, shortness of breath, palpitations. She endorses worsening lower extremity edema. On exam she has +3 LE edema. States she has an appointment on Monday with her charger tester to decide on dialysis. 04/24/2024 office visit [...] elevated resistive index withi (more content not included)...[facility] 04-02-2025 History of Present illness Narrative* 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 NP - 04/02/2025 2:00 PM EDT Images from [...] for pain. Pt was recently hospitalized at [facility] for hypertensive crisis. Pt also had an acute kidney injury superimposed on her CKD, stage IV. On discharge from the hospital, Cr was 3.69 and GFR 12.3. A referral to nephrology was sent to Dr. Espinosa in [place] during her hospital follow up visit on [...] up scheduled with Dr Espinosa 04/08 in [place] [address]. She is working on obtaining transportation with [...] bilateral femoral stent FEMORAL ARTERY STENT Bilateral MI REMOVE TONSILS/ADENOIDS,12+ Y/O SPINE SURGERY fusion of [...] kidney disease, stage 4 (severe) ([facility]) Follow up with nephrology 04/08 Admits [...] for Next scheduled follow-up. documented in this [facility]07-08-2025 Telephone encounter Note* Telephone Encounter - GISSELLE Sigala - 03/25/2025 2:15 PM EDT Rx for ambien [facility] yesterday. [id number] Miscellaneous Notes* Telephone Encounter - GISSELLE Sigala - 03/25/2025 2:15 PM EDT Rx for ambien was sent yesterday. documented in this [facility]07-07-2025 History of Present illness Narrative* Jack Vogt MD - 03/24/2025 4:30 PM EDT Images from the original note were not included. HPI Follow-up Additional comments: Transferred to [facility] from [facility] 03/13/25 dx: HTN urgency,NSTEMI discharged home03/20/25 med changes made follow up with cardiology 04/02/25 and nephrology 05/06/25 discuss referral Additional comments: Pt would like a referral sent to nephrology in [place] she does not want to go to [place] Last edited by Summer Feliciano LPN on 03/24/2025 4:51 PM. Subjective Patient ID: Marleni Dennis is a 74 y.o. female who presents for Follow-up ([facility] dx: HTN urgency,NSTEMI discharged home03/20/25 med changes made follow up with cardiology04/02/25 and nephrology 05/06/25) and discuss referral (Pt would like a referral sent to nephrology in [place] she does not want to go to [place]). Flowsheet Row Documentation from 03/24/[address] [facility] Music[employer] with Aimee Go MA Hospital Information ED, Hospital or Fpc Facility Discharge? 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 All available hospital records were reviewed and discussed with the patient. Hospital discharge meds were reviewed. Any changes are as noted. Type 2 diabetes mellitus with stage 4 chronic kidney disease, without long-term current use of insulin ([facility]) - Ambulatory referral to Nephrology; Future Insomnia due to medical condition - zolpidem (Ambien) 5 MG tablet; Take 1 tablet (5 mg) by mouth as needed at bedtime for sleep Chronic kidney disease, stage 4 (severe) ([facility]) Primary osteoarthritis of both knees - traMADol (Ultram) 50 MG tablet; Take 1 tablet (50 mg) by mouth every 8 (eight) hours if needed for severe pain - PT home eval; Future Follow up in about 2 months (around 05/25/2025) for Routine F/U. documented in this encounterLiberty [id number] NotePhysical Therapy Name: Marleni Dennis Date of : 1950 Today's Date: 03/20/25 Pt is unable to be seen for therapy at this time secondary to pt to discharge to home soon. Will check back and complete therapy session as appropriate if discharge does not occur.. Check No Charge Time attempted: [address] [place], [place] 5320407-03-2025 NoteNephrology Progress Note Patient : Marleni Dennis; 74 y.o. Location: [address] [place] [address] Attending: Erickson Cabrera MD Admit Date: 03/13/2025 Hospital Day: 7 Reason for Consult: CKD IV with uncontrolled hypertension. Subjective: History of present illness: Marleni Dennis is a 74 y.o. female who was transferred from [facility] after presenting with weakness after a fall as well as uncontrolled hypertension. She has pertinent past medical history of hypertension secondary to renal artery stenosis, CKD IV, CAD s/p CABG and PCI with stent placement, obstructive sleep apnea. She presented to [facility] after a fall after showering as [...] does not regularly follow up with a charger tester. She says she has a water pill [...] Dose Status apixaban (Eliquis) 2.5 mg tablet [id number] TAKE 1 TABLET BY MOUTH TWICE A DAY FOR 90 DAYS Kimberly Rousseau MD Active aspirin 81 mg EC tablet [id number] Take 1 tablet every day by oral route. Kimberly Rousseau MD Flag for Review buPROPion (Wellbutrin) 75 mg tablet [id number] Yes Take 75 mg by mouth twice a day. Kimberly Rousseau MD Active carvedilol (Coreg) 12.5 mg tablet [id number] No Take 25 mg by mouth with breakfast and with evening meal. Patient not taking: Reported on 03/13/2025 Kimberly Rousseau MD Not Taking Active DULoxetine (Cymbalta) [address] capsule [id number] Take 30 mg by mouth every other day. Weaning off of duloxetine (takes 60 mg daily AND 30 mg every other day_) Kimberly Rousseau MD Active DULoxetine (Cymbalta) [address] capsule [id number] Take 1 tablet by mouth in the morning. Weaning off of duloxetine (takes 60 mg daily AND 30 mg every other day_) Kimberly Rousseau MD Active ezetimibe (Zetia) 10 mg tablet [id number] Take 1 tablet by mouth in the morning. Historical Provider, Active fenofibrate (Tricor) 145 mg tablet 1703 (more content not included)...[facility]07-03-2025 NotePt has DC orders. Sent updates to [facility]. Will send AVS when available. Updated MD and pt's RN Shanique. Sent AVS/DC orders to [facility]. They will be able to arrange start of care on Saturday 03/24. Updated pt.[facility]07-03-2025 Note Hospital Medicine Discharge Summary Final Discharge Diagnosis: Principal Problem: Hypertensive emergency Active Problems: Coronary artery disease without angina pectoris Uncontrolled hypertension Occlusion of carotid artery Depression Type 2 diabetes mellitus with other diabetic kidney complication ([facility]) Tobacco dependence Stage 4 chronic kidney disease ([facility]) Acute kidney injury superimposed on chronic kidney disease NSTEMI (non-ST elevated myocardial infarction) ([facility]) Abdominal bruit Other abnormalities of gait and mobility Severe protein-calorie malnutrition ([facility]) History of DVT (deep vein thrombosis) CAD s/p CABG Admission Diagnosis: HTN (hypertension) with goal to be determined [I10] Hospital course: 74-year-old female with the above history was admitted to [facility] on 03/13 due to hypertensive emergency. patient initially presented to [facility] after a fall and was found to have systolic blood pressure up to 250 and lab work revealed elevated troponin without immediate concerning ischemic changes on EKG. CT head was negative for acute process. She was transferred to [facility] for NSTEMI. Upon presentation cardiology was [...] During Admission: Cardiology and Nephrology Dear MD Sin, Marleni is advised to follow up with you within 1-2 weeks. Items to follow up in ambulatory setting: Follow-up serial BMPs Follow-up with: Nephrology Scheduled appointments: Future Appointments Date Time Provider Department Center 04/02/2025 3:00 PM John Luther CNP [facility] 05/06/2025 8:30 AM Aydee Chao MD [facility] NEPHRO Comprehensiv 05/06/2025 8:45 AM Aydee Chao MD [facility] NEPHRO Comprehensiv Your medication list ASK your [...] zolpidem 10 mg tablet Commonly known as: Ambien Ask about: Which instructions should I use? Marleni is allergic to shellfish derived, nickel, iodine, pneumovax-23 [pneumococcal 23-cruz ps vaccine], red dye, ucphesj-lyj-uzc reductase inhibitors, and varenicline. Disposition: Home-Health Care [facility] () Discharge Condition: Stable Code Status: Full Code [...] fat with locations identified (more content not included)...[facility]07-03-2025 NoteThis report has been cancelled.[facility]07-02-2025 Note-TOMASA on CKD during admission, likely ATN -Cr upward trend, if improved tomorrow then discharge -Daily BMP -Defer fluids to Nephrology - Spoke with nephrology today and agree with doing urinalysis to consider alternative etiologies for the patient's renal dysfunctionUnThe University of [facility]07-02-2025 NotePhysical Therapy Physical Therapy Treatment Patient Name: Marleni Dennis : 1950 Today's Date: 03/19/2025 Problem List[1] 03/19/25 Time Calculation Start Time 1416 Stop Time 1436 Time Calculation (min) 20 min PT Therapeutic Procedures Time Entry Therapeutic Activity Time Entry 20 03/19/25 1416 PT Last Visit PT Received On 03/19/25 Response to Previous Treatment Patient with no complaints from previous session. General Family/Caregiver Present No Subjective Pt in bed awake and alert, agreeable to participate. RN danilo session. Activity Tolerance Endurance Stage II Activity Tolerance Comments Pt reports dizziness assisted through ambulation limiting distances and activity tolerance. [...] at end of session. PT Assessment PT Assessment/TRAY DRIER Summary Pt continues to improve, however, limited by dizziness assisted throughout ambulation distance this date. Pt also [...] will perform sit to (more content not included)...[facility]07-02-2025 NoteNephrology Progress Note Patient : Marleni Dennis; 74 y.o. Location: [address] [place] [address] Attending: Erickson Cabrera MD Admit Date: 03/13/2025 Hospital Day: 6 Reason for Consult: CKD IV with uncontrolled hypertension. Subjective: History of present illness: Marleni Dennis is a 74 y.o. female who was transferred from [facility] after presenting with weakness after a fall as well as uncontrolled hypertension. She has pertinent past medical history of hypertension secondary to renal artery stenosis, CKD IV, CAD s/p CABG and PCI with stent placement, obstructive sleep apnea. She presented to [facility] after a fall after showering as [...] does not regularly follow up with a charger tester. She says she has a water pill [...] Dose Status apixaban (Eliquis) 2.5 mg tablet [id number] TAKE 1 TABLET BY MOUTH TWICE A DAY FOR 90 DAYS Historical MD Soham Active aspirin 81 mg EC tablet [id number] Take 1 tablet every day by oral route. Historical ProviderMD Flag for Review buPROPion (Wellbutrin) 75 mg tablet [id number] Yes Take 75 mg by mouth twice a day. Historical ProviderMD Active carvedilol (Coreg) 12.5 mg tablet [id number] No Take 25 mg by mouth with breakfast and with evening meal. Patient not taking: Reported on 03/13/2025 Kimberly Rousseau MD Not Taking Active DULoxetine (Cymbalta) [address] capsule [id number] Take 30 mg by mouth every other day. Weaning off of duloxetine (takes 60 mg daily AND 30 mg every other day_) Kimberly Rousseau MD Active DULoxetine (Cymbalta) [address] capsule [id number] Take 1 tablet by mouth in the morning. Weaning off of duloxetine (takes 60 mg daily AND 30 mg every other day_) Kimberly Rousseau MD Active ezetimibe (Zetia) 10 mg tablet [id number] Take 1 tablet by mouth in the morning. Kimberly ProviderMD Active fenofibrate (Tricor) 145 mg tablet [id number] Take 1 tablet by mouth in the morning. Historical Provider, Active furosemide (Lasix) 40 mg tablet [id number] No if needed. (more content not included)...[facility]07-02-2025 Note-RD following, see belowUnThe [facility]07-02-2025 Note-MCS SSIUnThe [facility]07-02-2025 Note-PT/OT following -Plan for HHC dispoUnThe [facility]07-02-2025 Note-NRT -Advised on cessationUnThe [facility]07-02-2025 Note-Continue LexaproUnThe [facility] of [facility]07-02-2025 Note-Continue Zetia, fenofibrate, aspirinUnThe [facility]07-02-2025 Note-likely 2/2 medication non-adherence -US renal negative for stenosis -aldosterone, renin wnl -Required intermittent cardene -BP management per Nephrology, appreciate recsUniversity of [facility]07-02-2025 Note-would benefit repeating duplex scan of the abdomen as an outpatientUnThe [facility]07-02-2025 Note-Prior episodes of DVT, on Eliquis. Physical exam showed evidence of LLE swelling. -b/l LE doppler negative for DVTUnThe [facility] of [facility]07-02-2025 Note-Continue Zetia, aspirin -ultrasound showing <50% stenosis R ICA, 50-69% stenosis L ICA -Will need outpatient surveillanceUnThe [facility]07-02-2025 NoteHospital Medicine Daily Progress Note - 03/19/2025 8:02 AM; Room: [address] [place] [address] Admission: 03/13/2025 1:02 AM; Length of stay: 6 days THE HOSPITALIST TEAM PREFERS TO USE [employer] CHAT FOR NON-URGENT COMMUNICATION 7AM-7PM. IF I DO NOT RESPOND WITHIN 20 MINUTES OR URGENT MATTERS, PLEASE CALL THROUGH THE HEALTH ASSOCIATE. FROM 7PM-7AM, PLEASE PAGE [phone](COVR). Code Status: Full Code Barriers to Discharge: [...] Hypertensive emergency NSTEMI (non-ST elevated myocardial infarction) ([facility]/HCC) Acute kidney injury superimposed on chronic kidney disease -likely 2/2 medication non-adherence -US renal negative for stenosis -aldosterone, renin wnl -Required intermittent cardene -BP management per Nephrology, appreciate recs Stage 4 chronic kidney disease ([facility]/HCC) -TOMASA on CKD during admission, likely ATN [...] diabetes mellitus with other diabetic kidney complication ([facility]/H[facility]) -[facility] SSI Tobacco dependence -NRT -Advised on cessation Other abnormalities of gait and mobility -PT/OT following -Plan for [facility] dispo Severe protein-calorie malnutrition (CMS/HCC) -RD following, [...] Academy of Nutrition and Dietetics and the [place] [employer] of Enteral and Parenteral Nutrition, meets [...] Results from last 7 (more content not included)...[facility]07-01-2025 NotePhysical Therapy Physical Therapy Treatment Patient [...] Clicks T-Score: 20 Assessment/Plan PT Assessment PT Assessment/TRAY DRIER Summary: pt amb 115ft RW with SBAof [...] (from Physical Therapy) Active Problems Problem: PT [facility] Start Date: 03/13/25 Goal Start Date Expected End Date End Date Patient will perform bed mobility from flat bed independently without use of bed rails. 03/13/25 04/12/25 -- Goal Star (more content not included)...[facility] 03-18-2025 NoteReceived update from [facility] office, they will accept. Updated pt. Anticipate Dc tomorrow per hospitalist note.[facility] 03-18-2025 NoteNephrology Progress Note Patient : Marleni Dennis; 74 y.o. Location: [facility]- Attending: Erickson Cabrera MD Admit Date: 03/13/2025 Hospital Day: 5 Reason for Consult: CKD IV with uncontrolled hypertension. Subjective: History of present illness: Marleni Dennis is a 74 y.o. female who was transferred from [facility] after presenting with weakness after a fall as well as uncontrolled hypertension. She has pertinent past medical history of hypertension secondary to renal artery stenosis, CKD IV, CAD s/p CABG and PCI with stent placement, obstructive sleep apnea. She presented to [facility] after a fall after showering as [...] does not regularly follow up with a charger tester. She says she has a water pill [...] Dose Status apixaban (Eliquis) 2.5 mg tablet [id number] TAKE 1 TABLET BY MOUTH TWICE A DAY FOR 90 DAYS Historical ProviderMD Active aspirin 81 mg EC tablet [id number] Take 1 tablet every day by oral route. Historical ProviderMD Flag for Review buPROPion (Wellbutrin) 75 mg tablet [id number] Yes Take 75 mg by mouth twice a day. Historical ProviderMD Active carvedilol (Coreg) 12.5 mg tablet [id number] No Take 25 mg by mouth with breakfast and with evening meal. Patient not taking: Reported on 03/13/2025 Historical ProviderMD Not Taking Active DULoxetine (Cymbalta) [address] capsule [id number] Take 30 mg by mouth every other day. Weaning off of duloxetine (takes 60 mg daily AND 30 mg every other day_) Historical ProviderMD Active DULoxetine (Cymbalta) [address] capsule [id number] Take 1 tablet by mouth in the morning. Weaning off of duloxetine (takes 60 mg daily AND 30 mg every other day_) Historical ProviderMD Active ezetimibe (Zetia) 10 mg tablet [id number] Take 1 tablet by mouth in the morning. Historical ProviderMD Active fenofibrate (Tricor) 145 mg tablet [id number] (more content not included)... [facility]07-01-2025 NotePhysician Clarification Please review the following and provide your response below. Please specify the type of NSTEMI: --NSTEMI --MA Type 2, please document underlying cause --NSTEMI Ruled out --Demand ischemia (no NSTEMI) --Elevated troponins without NSTEMI --Other specified --Clinically unable to determine Additional Notes: Demand ischemia (no NSTEMI) This documentation will become part of the patient's medical record.[facility]07-01-2025 Note-TOMASA on CKD during admission, likely ATN -Cr upward trend, if improved tomorrow then discharge -Daily BMP -Defer fluids to NephrologyUnThe [facility]07-01-2025 Note- Continue LexaproUnThe [facility]07-01-2025 Note-PT/OT following -Plan for [facility] dispoUnThe [facility]07-01-2025 Note-would benefit repeating duplex scan of the abdomen as an outpatientUnThe [facility]07-01-2025 Note-NRT -Advised on cessationUnThe [facility]07-01-2025 Note-RD following, see belowUnThe [facility]07-01-2025 Note-MCS SSI [facility]07-01-2025 Note-likely 2/2 medication non-adherence -US renal negative for stenosis -aldosterone, renin wnl -Required intermittent cardene -BP management per Nephrology, appreciate recsUniversity of [facility]07-01-2025 Note-Prior episodes of DVT, on Eliquis. Physical exam showed evidence of LLE swelling. -b/l LE doppler negative for DVTUnThe [facility]07-01-2025 Note-Continue Zetia, aspirin -ultrasound showing <50% stenosis R ICA, 50-69% stenosis L ICA -Will need outpatient surveillanceUnThe [facility]07-01-2025 Note-Continue Zetia, fenofibrate, aspirinUnThe [facility] 03-18-2025 NoteHospital Medicine Daily Progress Note - 03/18/2025 7:20 AM; Room: [address] [place] [address] Admission: 03/13/2025 1:02 AM; Length of stay: 5 days THE HOSPITALIST TEAM PREFERS TO USE [employer] CHAT FOR NON-URGENT COMMUNICATION 7AM-7PM. IF I DO NOT RESPOND WITHIN 20 MINUTES OR URGENT MATTERS, PLEASE CALL THROUGH THE HEALTH ASSOCIATE. FROM 7PM-7AM, PLEASE PAGE [phone](COVR). Code Status: Full Code Barriers to Discharge: [...] Hypertensive emergency NSTEMI (non-ST elevated myocardial infarction) ([facility]) Acute kidney injury superimposed on chronic kidney disease -likely 2/2 medication non-adherence - renal negative for stenosis -aldosterone, renin wnl -Required intermittent cardene -BP management per Nephrology, appreciate recs Stage 4 chronic kidney disease ([facility]) -TOMASA on CKD during admission, likely [...] diabetes mellitus with other diabetic kidney complication ([facility]/HCC) -[facility] SSI Tobacco dependence -NRT -Advised on cessation Other abnormalities of gait and mobility -PT/OT following -Plan for [facility] dispo Severe protein-calorie malnutrition ([facility]/HCC) -RD following, see below Nutrition Screen: Clinical [...] Academy of Nutrition and Dietetics and the [place] [employer] of Enteral and Parenteral Nutrition, meets [...] 03/13/25 1748 03/13/25 073 (more content not included)...[facility]07-01-2025 NoteProblem: Safety - Adult Goal: Free from fall injury Outcome: Progressing The patient is Moderately Stable - Low risk of patient condition declining or worsening The patient's goals for the shift include comfort The clinical goals for the shift include VSS, safetyUnThe [facility]06-30-2025 NotePhysical Therapy Name: Marleni Dennis Date of : 1950 Today's Date: 03/17/25 Oh no you can't work with me today. Session okay per RN, requests pt's BP be recorded prior to mobility. Pt supine in bed upon arrival, refuses PT this afternoon d/t being too tired. Is, however, agreeable to this freelance copywriter obtaining BP: 139/50 mmHg. RN aware. Check No Charge Time attempted: 1425 Giancarlo Calderón, PT, DPTUnThe University of [facility] Center06-30-2025 Note-TOMASA on CKD during admission, likely ATN -Cr upward trend -Daily BMP -Def[facility] fluids to [facility]phrologyMercer County Community [facility] Note- likely 2/2 medication non-adherence -US renal negative for stenosis -aldosterone, renin wnl -Required intermittent cardene -BP management per Nephrology, appreciate [facility]Univers[facility]06-30-[facility]25 Note-likely 2/2 medication non-adherence -US renal negative for stenosis -aldosterone, renin wnl -Required intermittent cardene -BP management per Nephrology, appreciate [facility]Univers[facility]06-30-2025 NoteOccupational Therapy Occupational Therapy Treatment Patient Name: Marleni Dennis : 1950 Today's Date: 03/17/2025 03/17/25 0955 Time Calculation Start Time 0955 Stop Time 1029 Time Calculation (min) 34 min Problem List Problem List[1] Treatment: 03/17/25 0955 OT Last Visit OT Received On 03/17/25 [...] 4 Eating meals? 4 Total Score OT [facility] 21 OT Goals: Multi-Disciplinary Problems (from Occupational Therapy) Active Problems Problem: Balance Start Date: 03/14/25 Goal Start Date Expected End Date End Date LTG - Patient will maintain stand balance to (more content not included)... [facility]06-30-2025 Note-Continue LexaproUnThe [facility]06-30-2025 Note-Continue Zetia, aspirin -ultrasound showing <50% stenosis R ICA, 50-69% stenosis L ICA -Will need outpatient surveillanceUnThe [facility]06-30-2025 Note-NRT -Advised on cessationUnThe [facility]06-30-2025 Note-MCS SSI [facility]06-30-2025 Note-RD following, see below [facility]06-30-2025 Note-PT/OT following -Plan for [facility] dispoUnThe [facility]06-30-2025 Note-would benefit repeating duplex scan of the abdomen as an outpatientUnThe [facility]06-30-2025 Note-Prior episodes of DVT, on Eliquis. Physical exam showed evidence of LLE swelling. -b/l LE doppler negative for DVTUnThe [facility]06-30-2025 Note-Continue Zetia, fenofibrate, aspirinUnThe [facility] 03-17-2025 NoteHospital Medicine Daily Progress Note - 03/17/2025 8:33 AM; Room: [address] [place] [address] Admission: 03/13/2025 1:02 AM; Length of stay: 4 days THE HOSPITALIST TEAM PREFERS TO USE [employer] FOR NON-URGENT COMMUNICATION 7AM-7PM. IF I DO NOT RESPOND WITHIN 20 MINUTES OR URGENT MATTERS, PLEASE CALL THROUGH THE HEALTH ASSOCIATE. FROM 7PM-7AM, PLEASE PAGE [phone](COVR). Code Status: Full Code Barriers to Discharge: [...] Hypertensive emergency NSTEMI (non-ST elevated myocardial infarction) ([facility]) Acute kidney injury superimposed on chronic kidney disease -likely 2/2 medication non-adherence -US renal negative for stenosis -aldosterone, renin wnl -Required intermittent cardene -BP management per Nephrology, appreciate recs Stage 4 chronic kidney disease ([facility]) -TOMASA on CKD during admission, likely [...] diabetes mellitus with other diabetic kidney complication ([facility]/HCC) -[facility] SSI Tobacco dependence -NRT -Advised on cessation Other abnormalities of gait and mobility -PT/OT following -Plan for [facility] dispo Severe protein-calorie malnutrition (CMS/HCC) -RD following, [...] Academy of Nutrition and Dietetics and the [place] [employer] Enteral and Parenteral Nutrition, meets [...] 03/13/25 0738 SODIUM mmol (more content not included)...[facility] 03-17-2025 NoteNephrology Progress Note Patient : Marleni Dennis; 74 y.o. Location: [address] [place], [place] [address]- Attending: Erickson Cabrera MD Admit Date: 03/13/2025 Hospital Day: 4 Reason for Consult: CKD IV with uncontrolled hypertension. Subjective: History of present illness: Marleni Dennis is a 74 y.o. female who was transferred from [facility] after presenting with weakness after a fall as well as uncontrolled hypertension. She has pertinent past medical history of hypertension secondary to renal artery stenosis, CKD IV, CAD s/p CABG and PCI with stent placement, obstructive sleep apnea. She presented to [facility] after a fall after showering as [...] does not regularly follow up with a charger tester. She says she has a water pill [...] Dose Status apixaban (Eliquis) 2.5 mg tablet [id number] TAKE 1 TABLET BY MOUTH TWICE A DAY FOR 90 DAYS Historical ProviderMD Active aspirin 81 mg EC tablet [id number] Take 1 tablet every day by oral route. Historical ProviderMD Flag for Review buPROPion (Wellbutrin) 75 mg tablet [id number] Yes Take 75 mg by mouth twice a day. Historical ProviderMD Active carvedilol (Coreg) 12.5 mg tablet [id number] No Take 25 mg by mouth with breakfast and with evening meal. Patient not taking: Reported on 03/13/2025 Historical MD Soham Not Taking Active DULoxetine (Cymbalta) [address] capsule [id number] Take 30 mg by mouth every other day. Weaning off of duloxetine (takes 60 mg daily AND 30 mg every other day_) Historical ProviderMD Active DULoxetine (Cymbalta) [address] capsule [id number] Take 1 tablet by mouth in the morning. Weaning off of duloxetine (takes 60 mg daily AND 30 mg every other day_) Historical ProviderMD Active ezetimibe (Zetia) 10 mg tablet [id number] Take (more content not included)... [facility]06-29-2025 Note Attestation signed by Sharee Mckoen MD at 03/16/2025 1:40 PM I personally [...] Faculty, Division of Nephrology, Department of Medicine, [facility] Sciences. Nephrology Progress Note Patient : Marleni Dennis; 74 y.o. Location: 4108/4108-01 Attending: Erickson Cabrera MD Admit Date: 03/13/2025 Hospital Day: 3 Reason for Consult: CKD IV with uncontrolled hypertension. Subjective: History of present illness: Marleni Dennis is a 74 y.o. female who was transferred from [facility] after presenting with weakness after a fall as well as uncontrolled hypertension. She has pertinent past medical history of hypertension secondary to renal artery stenosis, CKD IV, CAD s/p CABG and PCI with stent placement, obstructive sleep apnea. She presented to [facility] after a fall after showering as [...] does not regularly follow up with a charger tester. She says she has a water pill [...] Dose Status apixaban (Eliquis) 2.5 mg tablet [id number] TAKE 1 TABLET BY MOUTH TWICE A DAY FOR 90 DAYS Historical Provider, Active aspirin 81 mg EC tablet [id number] Take 1 tablet (more content not included)... [facility]06-29-2025 Note-likely 2/2 medication non-adherence -US renal negative for stenosis -pending aldosterone, renin -Required intermittent cardene -Continue Coreg 25, hydralazine 100 TID, nifedipine 60 BID -Due to consulting services changes orders without communication to primary, will defer all BP management to Nephrology to avoid inevitable complications from multiple prescribers.[facility]06-29-20[facility] Note-TOMASA on CKD during admission, likely ATN -Cr mild increased today -Daily BMP -Defer fluids to NephrologyUnThe [facility]06-29-2025 Note- MCS SSIUnThe [facility]06-29-2025 Note-Continue Zetia, aspirin -ultrasound showing <50% stenosis R ICA, 50-69% stenosis L ICA -Will need outpatient surveillanceUnThe [facility]06-29-2025 Note-RD following, see belowUnThe [facility]06-29-2025 Note- PT/OT following -Plan for HHC dispoUnThe [facility]06-29-2025 Note-NRT -Advised on cessationUnThe [facility]06-29-2025 Note-would benefit repeating duplex scan of the abdomen as an outpatientUnThe [facility]06-29-2025 Note-Prior episodes of DVT, on Eliquis. Physical exam showed evidence of LLE swelling. -b/l LE doppler negative for DVTUnThe [facility]06-29-2025 Note-Continue LexaproUnThe [facility]06-29-2025 Note-Continue Zetia, fenofibrate, aspirinUnThe [facility]06-29-2025 Note Hospital Medicine Daily Progress Note - 03/16/2025 7:20 AM; Room: [address] [place] [address] Admission: 03/13/2025 1:02 AM; Length of stay: 3 days THE HOSPITALIST TEAM PREFERS TO USE [employer] FOR NON-URGENT COMMUNICATION 7AM-7PM. IF I DO NOT RESPOND WITHIN 20 MINUTES OR URGENT MATTERS, PLEASE CALL THROUGH THE HEALTH ASSOCIATE. FROM 7PM-7AM, PLEASE PAGE [phone](COVR). Code Status: Full Code Barriers to Discharge: [...] Hypertensive emergency NSTEMI (non-ST elevated myocardial infarction) ([facility]) Acute kidney injury superimposed on chronic kidney disease -likely 2/2 medication non-adherence -US renal negative for stenosis -pending aldosterone, renin -Required intermittent cardene -Continue Coreg 25, hydralazine 100 TID, nifedipine 60 BID -Due to consulting services changes orders without communication to primary, will defer all BP management to Nephrology to avoid inevitable complications from multiple prescribers. Stage 4 chronic kidney disease ([facility]) -TOMASA on CKD during admission, likely [...] diabetes mellitus with other diabetic kidney complication ([facility]) -[facility] SSI Tobacco dependence -NRT -Advised on cessation Other abnormalities of gait and mobility -PT/OT following -Plan for [facility] dispo Severe protein-calorie malnutrition ([facility]/HCC) -RD following, see below Nutrition Screen: Clinical [...] Academy of Nutrition and Dietetics and the [place] [employer] of Enteral and Parenteral Nutrition, meets [...] Units 03/16/25 0500 03/15/25 (more content not included)...[facility]06-28-2025 Note -likely 2/2 medication non-adherence -US renal negative for stenosis -pending aldosterone, renin -Required intermittent cardene -Continue Coreg 25, hydralazine 100 TID, nifedipine 30 BID -Avoid relative hypotension and rapid changes to medications prior to steady state in order to avoid such labile BPUnThe [facility] 03-15-2025 Note-would benefit repeating duplex scan of the abdomen as an outpatientUnThe [facility]06-28-2025 Note-PT/OT following -Plan for [facility] dispoUnThe [facility]06-28-2025 Note-Prior episodes of DVT, on Eliquis. Physical exam showed evidence of LLE swelling. -b/l LE doppler negative for DVTUnThe [facility]06-28-2025 Note-TOMASA on CKD during admission, likely ATN -Cr plateau today, hold fluids and monitor daily BMP -If improved tomorrow and BP stable then dischargeUnThe [facility]06-28-2025 Note-Continue Zetia, fenofibrate, aspirinUnThe [facility]06-28-2025 Note-Continue Zetia, aspirin -ultrasound showing <50% stenosis R ICA, 50-69% stenosis L ICA -Will need outpatient surveillanceMercer County Community Hospital06-28-2025 Note-NRT -Advised on cessationUnThe [facility]06-28-2025 Note-Continue LexaproUnThe [facility]06-28-2025 Note-MCS SSIUnThe [facility]06-28-2025 Note-RD following, see belowUnThe [facility]06-28-2025 Note Attestation signed by Sharee Mckeon MD [...] Faculty, Division of Nephrology, Department of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 Chronic diastolic congestive heart failure (HCC) Hypokalemia Hypopotassemia documented in this encounter [facility] HealthcareEvaluation note* Diagnosis Chronic kidney disease, stage 4 (severe) (HCC)- Primary Chronic diastolic congestive heart failure (HCC) Atherosclerosis of [place] coronary artery of [place] heart with stable angina pectoris Benign essential hypertension Essential hypertension, benign Degenerative lumbar spinal stenosis Spinal stenosis of lumbar region Radiculopathy of lumbar region Spinal stenosis, lumbar region with neurogenic claudication Spondylolisthesis of lumbar region Need for home health care Routine lab draw Advanced care planning/counseling discussion documented in this encounter [facility] HealthcareHospital course Narrative No data available for this section [facility] Hospital Discharge instructions Additional Instructions [facility] Facility to manage care: - Full code - PT/OT eval and treat - Routine vital signs - Avoid NSAIDs - GI office will follow-up pathology for H. pylori and if positive recommend 14 days of quad therapy - otherwise, patient will not need outpatient GI follow-up - Renal function panel in 7 days - [facility] Work Phone: Progress note No data available for this section [facility] reason for referral (narrative)No reason for referral information availableOhiohealth [facility] Hospital Work Phone: Summary Purpose Family History Relationship Condition Age at Onset Recorded Date/T katherine Not Specified Myocardial infarction Unknown fatherMyocardial infarctionUnknown Relationship Condition Age at Onset Recorded Date/T katherine mother Myocardial infarction Unknown fatherMyocardial infarctionUnknown Advance Directives Advance Directive Response Recorded Date/ Time Advance Directives No May 2:17pm Chief Complaint and Reason for Visit Chief Complaint Screening Chief Complaint NEW TEJ KNEE PAIN NX M25.562 - Pain in left knee ScreeningReason for VisitBilateral primary osteoarthritis of knee Lymphedema Nicotine use Poor dental [...] April 08, 2025 3:58 pm Sent by Take Away Attendant April 08, 2025 9:1 6pm Reason for [...] section and content) DATE CREATED AUTHOR 07/06/2018 [facility] DATE CREATED AUTHOR AUTHOR'S ORGANIZ ATION 01/26/2023 [facility] DATE CREATED AUTHOR AUTHOR'S ORGANIZ ATION 11/19/2024 [facility] DATE CREATED AUTHOR AUTHOR'S ORGANIZ ATION 04/07/2025 [facility] DATE CREATED AUTHOR AUTHOR'S ORGANIZ ATION 05/27/2025 [facility] DATE CREATED AUTHOR AUTHOR'S ORGANIZ ATION 06/10/2025 [facility] DATE CREATED AUTHOR AUTHOR'S ORGANIZ ATION 06/30/2025 [facility] Care Teams (unrecognized sec tion and content) Team Status: Inactive Member Role Status Dates Jack Vogt II MD Primary Care Provider, Referring Provider Active Referral SelfAttending ProviderActive Team Status: Active Member Role Status Dates Jack Vogt II MD Primary Care Provider Active Team Status: Inactive Member Role Status Dates Jack Vogt II MD Primary Care Provider Active Start: November 23, 2023 End: November 22ophelia Hamilton II, MDAttending ProviderActiveStart: November 23, 2023 End: November 23, 2023 Team Status: Inactive Member Role Status Dates Jack Vogt II MD Primary Care Provider Active Start: February 05, 2024 End: February 04eferral SelfAttending ProviderActiveStart: February 05, 2024 End: February 05, 2024Team MemberRelationshipSpecialtyStart DateEnd Date Jack Vogt MD [address] [place] [address] PCP - GeneralInternal Medicine01/24/23am MemberRelationshipSpecialtyStart Date End Date Jack Vogt MD [address] [place] [address] PCP - GeneralInternal Medicine01/24/23am MemberRelationshipSpecialtyStart Date End Date Jack Vogt MD [address] [place] [address] PCP - GeneralInternal Medicine01/24/23am MemberRelationshipSpecialtyStart Date End Date Jack Vogt MD [address] [place] [address] PCP - GeneralInternal Medicine01/24/23am MemberRelationshipSpecialtyStart Date End Date Jack Vogt MD [address] [place] [address] PCP - GeneralInternal Medicine01/24/23am MemberRelationshipSpecialtyStart Date End Date Jack Vogt MD [address] [place] [address] PCP - GeneralInternal Medicine01/24/23am MemberRelationshipSpecialtyStart Date End Date Jack Vogt MD [address] [place] [address] PCP - GeneralInternal Medicine01/24/23Team MemberRelationshipSpecialtyStart Date End Date Jack Vogt MD [address] [place] [address] PCP - GeneralInternal Medicine01/24/23Team MemberRelationshipSpecialtyStart Date End Date Jack Vogt MD [address] [place] [address] PCP - GeneralInternal Medicine01/24/23Team MemberRelationshipSpecialtyStart Date End Date Jack Vogt MD [address] [place] [address] PCP - GeneralInternal Medicine01/24/23Team MemberRelationshipSpecialtyStart Date End Date Jack Vogt MD [address] [place] [address] PCP - GeneralInternal Medicine01/24/23 Team Status: Inactive Member Role Status Dates Jack Vogt II MD Primary Care Provider Active Start: April 08, 2025 End: April 08Malinda Schwartz ProviderActiveStart: April 08, 2025 End: April 08, 2025 Team Status: Active Member Role Status Dates Jack Vogt II MD Primary Care Provider Active Start: April 08, 2025 GISSELLE Hickey-CEmergency ProviderActiveStart: April 08, 2025 Julian Figueroa ProviderActiveStart: April 08, 2025 Malinda Figueroa ProviderActiveStart: April 08, 2025 Team Status: Active Member Role Status Dates Jack Vogt II MD Primary Care Provider Active Start: April 08, 2025 GISSELLE Hickey-CEmergency ProviderActiveStart: April 08, 2025 Rajiv Trejo MDAdmit ProviderActiveStart: April 08, 2025 Nick Antonio MDOther ProviderActiveStart: April 08, 2025 Kana Vazquez MDOther ProviderActiveStart: April 08, 2025 Judy Espinosa MDOther ProviderActiveStart: April 08, 2025 Estrella Velásquez MDOther ProviderActiveStart: April 08, 2025 Andrew Arrington MDAttending ProviderActiveStart: April 08, 2025 Andrew Arrington MDOther ProviderActiveStart: April 08, 2025 Estefania Yoder , APRNOther ProviderActiveStart: April 08, 2025 Keith Koehler Jr, DOOther ProviderActiveStart: April 08, 2025 Pilo Harry MDOther ProviderActiveStart: April 08, 2025 Team MemberRelationshipSpecialtyStart DateEnd Date Jack Vogt MD [address] [facility] [address] [place] [address] PCP - GeneralInternal Medicine01/24/23Team MemberRelationshipSpecialtyStart Date End Date Jack Vogt MD [address] [place] [address] PCP - GeneralInternal Medicine01/24/23Team MemberRelationshipSpecialtyStart Date End Date Jack Vogt MD [address] [facility] [address] [place] [address] PCP - GeneralInternal Medicine01/24/23 Chantelle Recio, MOLD FILLER AND DRAINER [address] [place] [address] Social WorkerFree Hospital For Women Medicine06/10/25Team MemberRelationshipSpecialtyStart DateEnd Date Jack Vogt MD [address] [place] [address] PCP - GeneralInternal Medicine01/24/23 Chantelle Recio, MOLD FILLER AND DRAINER [address] [place] [address] Social WorkerFamily Medicine06/10/25 Goals (unrecognized section and content) Type Treatment Intervention Code Status: Full Code Reason for Visit (unrecogniz ed section and content) ReasonCommentsMed RefillReasonCommentsMedicare Annual Wellness Visit Subsequent Med RefillWould like rx for hydrocodone--states she gets 2ReasonCommentsDiabetes EdemaResultsLab resultsMed RefillCymbalta-both doses- [facility] bellNeed note stating she can participate in water exercisesPt [facility] re: taking fenobibrate and zetia togetherReasonCommentsFollow-upTransferred to [facility] from [facility] 03/13/25 dx: HTN urgency,NSTEMI discharged home03/20/25 med changes made follow up with cardiology 04/02/25 and nephrology 05/06/25discuss referralPt would like a referral sent to [place] she does not want to go to [facility] Onset DateCommentsMed Vnvwlg2103/25/2025ReasonCommentsHypertensionswelling of lower extremitiesright flank painReasonCommentsWeight KmamGtiuttDkqegvloX4G for home health FOR RECORDS PERTAINING TO PATIENTS WHO ARE [...] BE BASED ON THE PRIMARY CLINICAL RECORDS. [employer] provides no warranty or guarantee of the accuracy or completeness of information in this document.
--- OUTSIDE RECORDS SUMMARY | 2025-07-09 15:44 | XMS_ITS | Encounter Summary ---
Author Organization [facility] Address [address] [place] [address] Care Team Providers Care Production Control Scheduler Name Role Phone Jack Vogt MD Primary Care Provider [phone] Chantelle Recio QUALITY LIAISON Unavailable [phone] Valerie Go RN Unavailable [phone] Encounter Details DateTypeDepartmentCare Team (Latest Contact Info)Dczgekxlmmf62/22/2025Patient Outreach [facility] [address] [place] [address] Valerie Go, DEBORA [address] [place] [address] Social History Tobacco UseTypesPacks/DayYears UsedDateSmoking Tobacco: FormerCigarettes Smokeless Tobacco: Never Tobacco Cessation:Counseling Given: Not Answered Alcohol UseStandard Drinks/WeekCommentsDefer0 (1 standard drink = 0.6 oz pure alcohol)caffeine yes type:coffeePHQ-2AnswerDate RecordedPatient Health Questionnaire-2 [id number] and Gender InformationValueDate RecordedSex Assigned at BirthNot on fileLegal SexFemale 11/30/2022 6:57 PM EDTGender IdentityNot on fileSexual OrientationNot on file documented as of this encounter Progress Notes * Valerie Go RN - 07/09/2025 12:09 PM EDT Chart reviewed. Called pt, introduced myself to pt. Gave pt nurse's contact information to pt. States she does have home health. She will have her labs drawn today and urine specimen collected for Nephrology appt with Dr Patino on 07/15/25. Pt states she does have transportation to the appt, her son is taking her to the appt. Pt states she has not received meals on wheels, is on a waiting list. States she does make what shecan in the home. Frequently has diarrhea. Pt reports she is not seeing Gastroenterology. Pt states she has an appt with [facility] but was in the hospital. Cardiology appt scheduled for Aug 22 at 3:45 pm. Discussed if she has received handout from Malia Gonzalez NP regarding renal diet. Pt states she is unsure if she has received anything from Malia in the mail. Confirmed with Malia that information had been mailed to pt. Pt reports no medication changes, taking medications. No refills needed. No questions/concerns at this time. Encouraged to call when needs arise documented in this encounter Plan of Treatment Not on file documented as of this encounter Goals GoalPatient Goal TypeAssociated ProblemsRecent ProgressPatient-Stated?Author Help patient manage antidepressant medication Care PlanPatient on antidepressant monitoring planRenetta Field NP documented as of this encounter Visit Diagnoses Diagnosis Benign essential hypertension- Primary Essential hypertension, benign Current nicotine use Irritable bowel syndrome, unspecified type Stage 3b chronic kidney disease (CMS-HCC) documented in this encounter Additional Health Concerns Active ProblemsNoted DateDiagnosed DatePatient on antidepressant monitoring plan 5AssessmentNoted TimePHQ-9 Depression Total Score: 15002/25/2025 11:31 AM EDTdocumented as of this encounter Care Teams Team MemberRelationshipSpecialtyStart DateEnd Date Jack Vogt MD [address] [facility] [address] [place] [address] PCP - GeneralInternal Medicine01/24/23 Chantelle Recio LSW [address] [place] [address] Social WorkerFamily Medicine06/10/25 Valerie Go, RN [address] [facility] [address] [place] [id number] Registered NurseFamily Ktnefeiw41/13/25documented as of this encounter
--- OUTSIDE RECORDS SUMMARY | 2025-07-09 15:44 | XMS_ITS | Encounter Summary ---
Author Organization [facility] Address [address] [place] [address] Care Team Providers Care Digital Project Coordinator Name Role Phone Jack Vogt MD Primary Care Provider [phone] Chantelle Recio ELEVATOR EXAMINER AND ADJUSTER Unavailable [phone] Encounter Details DateTypeDepartmentCare Team (Latest Contact Info)Nlydywecsmz25/10/2025Telephone [facility] [address] [facility] [address] [place] [phone] 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 NP [address] [place] [address] Social History Tobacco UseTypesPacks/DayYears UsedDateSmoking Tobacco: NeverSmokeless Tobacco: NeverAlcohol UseStandard Drinks/WeekCommentsDefer0 (1 standard drink = 0.6 oz pure alcohol)caffeine yes type:coffeePHQ-2AnswerDate RecordedPatient Health Questionnaire-2 [id number] and Gender InformationValueDate RecordedSex Assigned at BirthNot on fileLegal SexFemale 11/30/2022 6:57 PM EDTGender IdentityNot on fileSexual OrientationNot on file documented as of this encounter Miscellaneous Notes * Telephone Encounter - 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 [...] date of 1950, her phone number is [phone] last [id number] We were unaware that I believe probably [...] me. At the earliest convenience, it is [phone]. My name is Fabby, I am to her son, Tarun. I mean, y ou can also call Marleni to confirm this. Information, if you like. I gave the phone number for her as well, thank you. documented in this encounter Plan of Treatment Not on file documented as of this encounter Goals GoalPatient Goal TypeAssociated ProblemsRecent ProgressPatient-Stated?Author Help patient manage antidepressant medication Care PlanPatient on antidepressant monitoring planRenetta Field NP documented as of this encounter Visit Diagnoses Not on filedocumented in this encounter Additional Health Concerns Active ProblemsNoted DateDiagnosed DatePatient on antidepressant monitoring plan 5AssessmentNoted TimePHQ-9 Depression Total Score: 1506 11:31 AM EDTdocumented as of this encounter Care Teams Team MemberRelationshipSpecialtyStart DateEnd Date Jack Vogt MD [address] [facility] [address] [place] [address] PCP - GeneralInternal Medicine01/24/23 Chantelle Recio, HIEU [address] [place] [address] Social WorkerFamily Medicine06/10/25documented as of this encounter
--- OUTSIDE RECORDS SUMMARY | 2025-07-09 15:44 | XMS_ITS | Clinical Summary ---
Author Organization [facility] Address [address] [place] [address] Care Team Providers Care Financial Reporting Analyst Name Role Phone Jack Vogt MD Primary Care Provider [phone] Allergies Active AllergyReactionsCriticalityNoted TrjjNeheevrlNqrbnq02/17/2022NickelMedium 06/04/2018 Other reaction(s): Dermatitis skin irritation and itching with jewelry worn Pneumococcal 23-Dianne Ps Mxbwmco7905/06/2021 Other reaction(s): Swelling, Redness Red Dye05/04/2022hellfish QyopuxvQzfafkuqnmwSwsm96/17/7487Zpcobhd-Wsh-Fhv Reductase Hrivozejou25/19/2021 Other reaction(s): Myalgias, Myalgias (Muscle Pain) Vozjhmmohht28/19/2021 Other reaction(s): Vomiting Medications MedicationSigDispense QuantityRefillsLast FilledStart DateEnd DateStatus apixaban (Eliquis) 2.5 mg tablet TAKE 1 TABLET BY MOUTH TWICE A DAY FOR 90 DAYSActive aspirin 81 mg EC tablet Take 1 tablet every day by oral route.Active ezetimibe (Zetia) 10 mg tablet Take 1 tablet by mouth in the morning.Active fenofibrate (Tricor) 145 mg tablet Take 1 tablet by mouth in the morning.Active pantoprazole (ProtoNix) 40 mg EC tablet Take 1 tablet by mouth in the morning.Active hydrALAZINE (Apresoline) 100 mg tablet Indications:Primary hypertensionTake 1 tablet (100 mg) by mouth three times daily. 90 tablet 5Active zolpidem (Ambien) 5 mg tablet Indications:Insomnia, unspecified typeTake 1 tablet (5 mg) by mouth if needed at bedtime for sleep for up to 30 doses. 30 tablet 5Active cloNIDine (Catapres) 0.1 mg tablet Indications:Primary hypertensionTake 1 tablet (0.1 mg) by mouth three times daily for 360 doses. 90 tablet 5Active doxazosin (Cardura) 2 mg tablet Indications:Primary hypertensionTake 1 tablet (2 mg) by mouth in the morning for 120 doses. 30 tablet 5Active escitalopram (Lexapro) 5 mg tablet Indications:FibromyalgiaTake 1 tablet (5 mg) by mouth in the morning for 120 doses. 30 tablet 5Active NIFEdipine XL (Procardia XL) 90 mg 24 hr tablet Indications:Primary hypertensionTake 1 tablet (90 mg) by mouth two times daily for 87 doses. Do not crush, chew, or split. 60 tablet 5Active sennosides (Senokot) 8.6 mg tablet Indications:Constipation, unspecified constipation typeTake 1 tablet (8.6 mg) by mouth at bedtime for 120 doses. 30 tablet 5Active carvedilol (Coreg) 25 mg tablet Take 25 mg by mouth with breakfast and with evening meal.Active nitroglycerin (Nitrostat) 0.[address] 0.4 mg under the tongue every 5 (five) minutes if needed for chest pain. 4Active isosorbide mononitrate ER (Imdur) 30 mg 24 hr tablet Indications:Coronary artery disease involving [place] coronary artery of [place] heart without angina pectorisTake 1 tablet (30 mg) by mouth once daily as directed. Do not crush or chew. 90 tablet 6Active Active Problems ProblemNoted DateDiagnosed DateHistory of DVT (deep vein thrombosis)03/14/2025 Assessment & Plan (03/19/2025 8:02 AM EDT): -Prior episodes of DVT, on Eliquis. Physical exam showed evidence of LLE swelling. -b/l LE doppler negative for DVT Assessment & Plan (03/18/2025 7:20 AM EDT): -Prior episodes of DVT, on Eliquis. Physical exam showed evidence of LLE swelling. -b/l LE doppler negative for DVT Assessment & Plan (03/17/2025 8:33 AM EDT): -Prior episodes of DVT, on Eliquis. Physical exam showed evidence of LLE swelling. -b/l LE doppler negative for DVT Assessment & Plan (03/16/2025 7:20 AM EDT): -Prior episodes of DVT, on Eliquis. Physical exam showed evidence of LLE swelling. -b/l LE doppler negative for DVT Assessment & Plan (03/15/2025 1:59 PM EDT): -Prior episodes of DVT, on Eliquis. Physical exam showed evidence of LLE swelling. -b/l LE doppler negative for DVT Assessment & Plan (03/14/2025 2:09 PM EDT): - Prior episodes of DVT, on Eliquis. Physical exam showed evidence of LLE swelling. - Will order LLE doppler for further evaluation. NSTEMI (non-ST elevated myocardial infarction)03/13/2025 Assessment & Plan (03/19/2025 8:02 AM EDT): -likely 2/2 medication non-adherence -US renal negative for stenosis -aldosterone, renin wnl -Required intermittent cardene -BP management per Nephrology, appreciate recs Assessment & Plan (03/18/2025 7:20 AM EDT): -likely 2/2 medication non-adherence -US renal negative for stenosis -aldosterone, renin wnl -Required intermittent cardene -BP management per Nephrology, appreciate recs Assessment & Plan (03/17/2025 1:09 PM EDT): -likely 2/2 medication non-adherence -US renal negative for stenosis -aldosterone, renin wnl -Required intermittent cardene -BP management per Nephrology, appreciate recs Assessment & Plan (03/16/2025 8:47 AM EDT): -likely 2/2 medication non-adherence -US renal negative for stenosis -pending aldosterone, renin -Required intermittent cardene -Continue Coreg 25, hydralazine 100 TID, nifedipine 60 BID -Due to consulting services changes orders without communication to primary, will defer all BP management to Nephrology to avoid inevitable complications from multiple prescribers. Assessment & Plan (03/15/2025 1:59 PM EDT): -likely 2/2 medication non-adherence -US renal negative for stenosis -pending aldosterone, renin -Required intermittent cardene -Continue Coreg 25, hydralazine 100 TID, nifedipine 30 BID -Avoid relative hypotension and rapid changes to medications prior to steady state in order to avoid such labile BP Assessment & Plan (03/14/2025 2:09 PM EDT): As above Assessment & Plan (03/13/2025 3:07 AM EDT): As above Abdominal bruit03/13/2025 Assessment & Plan (03/19/2025 8:02 AM EDT): -would benefit repeating duplex scan of the abdomen as an outpatient Assessment & Plan (03/18/2025 7:20 AM EDT): -would benefit repeating duplex scan of the abdomen as an outpatient Assessment & Plan (03/17/2025 8:33 AM EDT): -would benefit repeating duplex scan of the abdomen as an outpatient Assessment & Plan (03/16/2025 7:20 AM EDT): -would benefit repeating duplex scan of the abdomen as an outpatient Assessment & Plan (03/15/2025 1:59 PM EDT): -would benefit repeating duplex scan of the abdomen as an outpatient Assessment & Plan (03/14/2025 2:09 PM EDT): May benefit repeating duplex scan of the abdomen as an outpatient Assessment & Plan (03/13/2025 3:07 AM EDT): May benefit repeating duplex scan of the abdomen as an outpatient Hypertensive gjpchamzz81/26/2025 Assessment & Plan (03/19/2025 8:02 AM EDT): -likely 2/2 medication non-adherence -US renal negative for stenosis -aldosterone, renin wnl -Required intermittent cardene -BP management per Nephrology, appreciate recs Assessment & Plan (03/18/2025 7:20 AM EDT): -likely 2/2 medication non-adherence -US renal negative for stenosis -aldosterone, renin wnl -Required intermittent cardene -BP management per Nephrology, appreciate recs Assessment & Plan (03/17/2025 1:09 PM EDT): -likely 2/2 medication non-adherence -US renal negative for stenosis -aldosterone, renin wnl -Required intermittent cardene -BP management per Nephrology, appreciate recs Assessment & Plan (03/16/2025 8:47 AM EDT): -likely 2/2 medication non-adherence -US renal negative for stenosis -pending aldosterone, renin -Required intermittent cardene -Continue Coreg 25, hydralazine 100 TID, nifedipine 60 BID -Due to consulting services changes orders without communication to primary, will defer all BP management to Nephrology to avoid inevitable complications from multiple prescribers. Assessment & Plan (03/15/2025 1:59 PM EDT): -likely 2/2 medication non-adherence -US renal negative for stenosis -pending aldosterone, renin -Required intermittent cardene -Continue Coreg 25, hydralazine 100 TID, nifedipine 30 BID -Avoid relative hypotension and rapid changes to medications prior to steady state in order to avoid such labile BP Assessment & Plan (03/14/2025 2:09 PM EDT): - Suspect secondary hypertension most likely due to renal artery stenosis. Continues to be hypertensive today however, she is asymptomatic. - Renal ultrasound done showed left side stenosis with a diameter of < 9 cm. Right side unremarkable. - Pending aldosterone/renin levels. - Cardiology discontinued Nicardipine drip and recommend continuation of Coreg and Hydralazine. Assessment & Plan (03/13/2025 3:07 AM EDT): Suspect secondary hypertension most likely due to renal artery stenosis continue nitrates add Coregwe will have cardiology see patient as well as nephrology. Discussed with patient but tobacco abstinence low-salt low-fat diet Other abnormalities of gait and znydokih22/26/2025 Assessment & Plan (03/19/2025 8:02 AM EDT): -PT/OT following -Plan for C dispo Assessment & Plan (03/18/2025 7:20 AM EDT): -PT/OT following -Plan for C dispo Assessment & Plan (03/17/2025 8:33 AM EDT): -PT/OT following -Plan for C dispo Assessment & Plan (03/16/2025 7:20 AM EDT): -PT/OT following -Plan for C dispo Assessment & Plan (03/15/2025 1:59 PM EDT): -PT/OT following -Plan for C dispo Assessment & Plan (03/14/2025 2:09 PM EDT): Fall event PT OT to see patient fall precautions Assessment & Plan (03/13/2025 3:07 AM EDT): Fall event PT OT to see patient fall precautions Severe protein-calorie dhsmmarkeczs04/26/2025 Assessment & Plan (03/19/2025 8:02 AM EDT): -RD following, see below Assessment & Plan (03/18/2025 7:20 AM EDT): -RD following, see below Assessment & Plan (03/17/2025 8:33 AM EDT): -RD following, see below Assessment & Plan (03/16/2025 7:20 AM EDT): -RD following, see below Assessment & Plan (03/15/2025 1:59 PM EDT): -RD following, see below Assessment & Plan (03/14/2025 2:09 PM EDT): - history of severe unintentional weight loss due to decreased PO intake. - Today, patient found to have improved PO intake. Continue monitoring Acute kidney injury superimposed on chronic kidney etggwju1404/24/2024 Assessment & Plan (03/19/2025 8:02 AM EDT): -likely 2/2 medication non-adherence -US renal negative for stenosis -aldosterone, renin wnl -Required intermittent cardene -BP management per Nephrology, appreciate recs Assessment & Plan (03/18/2025 7:20 AM EDT): -likely 2/2 medication non-adherence -US renal negative for stenosis -aldosterone, renin wnl -Required intermittent cardene -BP management per Nephrology, appreciate recs Assessment & Plan (03/17/2025 1:09 PM EDT): -likely 2/2 medication non-adherence -US renal negative for stenosis -aldosterone, renin wnl -Required intermittent cardene -BP management per Nephrology, appreciate recs Assessment & Plan (03/16/2025 8:47 AM EDT): -likely 2/2 medication non-adherence -US renal negative for stenosis -pending aldosterone, renin -Required intermittent cardene -Continue Coreg 25, hydralazine 100 TID, nifedipine 60 BID -Due to consulting services changes orders without communication to primary, will defer all BP management to Nephrology to avoid inevitable complications from multiple prescribers. Assessment & Plan (03/15/2025 1:59 PM EDT): -likely 2/2 medication non-adherence -US renal negative for stenosis -pending aldosterone, renin -Required intermittent cardene -Continue Coreg 25, hydralazine 100 TID, nifedipine 30 BID -Avoid relative hypotension and rapid changes to medications prior to steady state in order to avoid such labile BP Rsaiac4604/24/2024Left knee pain04/24/2024Lower GI bleed04/24/2024Lymphedema 04/24/2024oor dental ypbtguw2004/24/2024Urge xkdtifegconj67/07/2024Weakness /07/2024Localized edema10/04/2023Stage 3b chronic kidney disease 10/04/2023Stage 4 chronic kidney zdwlbww9807/21/2023 Assessment & Plan (03/19/2025 4:17 PM EDT): -TOMASA on CKD during admission, likely ATN -Cr upward trend, if improved tomorrow then discharge -Daily BMP -Defer fluids to Nephrology - Spoke with nephrology today and agree with doing urinalysis to consider alternative etiologies for the patient's renal dysfunction Assessment & Plan (03/18/2025 8:22 AM EDT): -TOMASA on CKD during admission, likely ATN -Cr upward trend, if improved tomorrow then discharge -Daily BMP -Defer fluids to Nephrology Assessment & Plan (03/17/2025 1:09 PM EDT): -TOMASA on CKD during admission, likely ATN -Cr upward trend -Daily BMP -Defer fluids to Nephrology Assessment & Plan (03/16/2025 8:47 AM EDT): -TOMASA on CKD during admission, likely ATN -Cr mild increased today -Daily BMP -Defer fluids to Nephrology Assessment & Plan (03/15/2025 1:59 PM EDT): -TOMASA on CKD during admission, likely ATN -Cr plateau today, hold fluids and monitor daily BMP -If improved tomorrow and BP stable then discharge Assessment & Plan (03/14/2025 2:09 PM EDT): - Nephrology consult blood pressure controlled aim for good glycemic control avoid nephrotoxic medswill discontinue NSAIDs which she is taking as well as ARB - Kidney function declining, likely secondary to hypertensive emergency on admission. Cr = 3.12, BUN 46, GFR 15. Continue monitoring levels and volume status. Continued LR infusion. Assessment & Plan (03/13/2025 3:07 AM EDT): Nephrology consult blood pressure controlled aim for good glycemic control avoid nephrotoxic meds will discontinue NSAIDs which she is taking as well as ARB Allergy to opbxpjd34Irritable bowel rgookkoy20/18/2023 07/21/20234253Daqjnbn41ostsurgical percutaneous transluminal coronary angioplasty uxjdjr15rimary osteoarthritis of both kneesulmonary embolism with lllbyjqcwr68 Statin jeagwgabxzp39Type 2 diabetes mellitus with other diabetic kidney oftoofjwzzfh37 Assessment & Plan (03/19/2025 8:02 AM EDT): -MCS SSI Assessment & Plan (03/18/2025 7:20 AM EDT): -MCS SSI Assessment & Plan (03/17/2025 8:33 AM EDT): -MCS SSI Assessment & Plan (03/16/2025 7:20 AM EDT): -MCS SSI Assessment & Plan (03/15/2025 1:59 PM EDT): -MCS SSI Assessment & Plan (03/14/2025 2:09 PM EDT): - Blood sugar check diet Assessment & Plan (03/13/2025 3:07 AM EDT): ) Blood sugar check diet Tobacco opvunwweeh95/18/202311/11/2022 Assessment & Plan (03/19/2025 8:02 AM EDT): -NRT -Advised on cessation Assessment & Plan (03/18/2025 7:20 AM EDT): -NRT -Advised on cessation Assessment & Plan (03/17/2025 8:33 AM EDT): -NRT -Advised on cessation Assessment & Plan (03/16/2025 7:20 AM EDT): -NRT -Advised on cessation Assessment & Plan (03/15/2025 1:59 PM EDT): -NRT -Advised on cessation Assessment & Plan (03/14/2025 2:09 PM EDT): - Nicotine replacement counseling, discussed with patient about having coronary disease peripheral arterial disease which can worsen with tobacco use Assessment & Plan (03/13/2025 3:07 AM EDT): Nicotine replacement counseling, discussed with patient about having coronary disease peripheral arterial disease which can worsen with tobacco use Xjuggttqtuudgp27/19/2577Sciucikfimkb45/19/2023Cardiovascular stress test bwzggkya92/17/2022Carotid artery ogasempd08/17/2022Chest pain2Coronary artery disease without angina qwieenoz74/17/2022 Overview (01/04/2023): S/p CABG and stenting - last cath 2015; stents to left main, prox LAD, mid cirx -PCSK9 inhibitors were not an option for her due to cost. Assessment & Plan (03/19/2025 8:02 AM EDT): -Continue Zetia, fenofibrate, aspirin Assessment & Plan (03/18/2025 7:20 AM EDT): -Continue Zetia, fenofibrate, aspirin Assessment & Plan (03/17/2025 8:33 AM EDT): -Continue Zetia, fenofibrate, aspirin Assessment & Plan (03/16/2025 7:20 AM EDT): -Continue Zetia, fenofibrate, aspirin Assessment & Plan (03/15/2025 1:59 PM EDT): -Continue Zetia, fenofibrate, aspirin Assessment & Plan (03/14/2025 2:09 PM EDT): - Cardiology recommend Zetia and fibrate on aspirin Assessment & Plan (03/13/2025 3:07 AM EDT): Cycle troponin patient has intolerance and side effect with statins currently on Zetia and fibrate on aspirin Cardiology follow-up patient Assessment & Plan (01/04/2023 3:34 PM EDT): Coronary artery disease is stable, no concerning symptoms Continue GDMT- ASA, zetia, metoprolol, tricor continue risk factor modifications- heart healthy diet, regular exercise as tolerated and continue all medications. Wfymcdtscrngl26/17/2022oronary atherosclerosis of autologous vein bypass graft 05/04/2022 Assessment & Plan (01/04/2023 3:34 PM EDT): stable Coronary stent ylgggz7505/04/2022ulmonary jiudjwt2905/04/2022Hyperlipidemia 05/04/2022 Assessment & Plan (01/04/2023 3:36 PM EDT): Lipid fairly stable with tricor and zetia Pt intolerant of statin, and PCSK9 inhibitor was not affordable Uncontrolled /17/2022 Assessment & Plan (01/04/2023 3:35 PM EDT): Hypertension is well controlled 138/74 continue all medications Soijntcwmvfwns47/17/2022VD (peripheral vascular disease)05/04/2022History of pulmonary chpzjuwv81/30/nemia due to chronic blood loss05/03/2021 Sinus plfoowychu04/16/2021History of thromboembolism of vein03/31/2021Thyroid kfqfzg4406/17/20200769Twlgdoxzz81/13/2020History of coronary artery bypass surgery 3Diabetic renal obnuzbr4410/24/20196881Iltfzlqglma35/06/2020Age related mqrldocatcps72/04/2020Decreased estrogen level10/09/2019Allergy to statin fsyrjhnnim70/20/2020Dissection of abdominal aorta05/29/2019Degenerative lumbar spinal vwonxpgs30/12/2019Generalized abdominal pain04/29/2019Insomnia 04/29/2019Nausea and tdypzmpd02/12/2927Kfvfxel93/12/2019Peripheral venous htgioquigcpxh60/12/2019Current nicotine useLeft foot drop 10/12/2018Lumbar jqueyahjcnqxb01/25/2019Lumbosacral spondylosis without qeisdgbeus97/25/2019Spondylolisthesis of lumbar kpdvso9806/04/2018Neurogenic xijyzcevcavg48/21/2018Daytime jgyfupdthl12/13/2017Celiac artery compression jrzbsmej96/12/2017Fibrocystic breast oktiewf1106/22/20164587Loisnzyhjarf63/24/2016 Atherosclerosis of coronary artery without angina lcipdfgt92/15/2016Benign essential bksiwdrhistd81/15/2016Occlusion of carotid hlbozt5910/02/2015 Assessment & Plan (03/19/2025 8:02 AM EDT): -Continue Zetia, aspirin -ultrasound showing <50% stenosis R ICA, 50-69% stenosis L ICA -Will need outpatient surveillance Assessment & Plan (03/18/2025 7:20 AM EDT): -Continue Zetia, aspirin -ultrasound showing <50% stenosis R ICA, 50-69% stenosis L ICA -Will need outpatient surveillance Assessment & Plan (03/17/2025 8:33 AM EDT): -Continue Zetia, aspirin -ultrasound showing <50% stenosis R ICA, 50-69% stenosis L ICA -Will need outpatient surveillance Assessment & Plan (03/16/2025 7:20 AM EDT): -Continue Zetia, aspirin -ultrasound showing <50% stenosis R ICA, 50-69% stenosis L ICA -Will need outpatient surveillance Assessment & Plan (03/15/2025 1:59 PM EDT): -Continue Zetia, aspirin -ultrasound showing <50% stenosis R ICA, 50-69% stenosis L ICA -Will need outpatient surveillance Assessment & Plan (03/14/2025 2:09 PM EDT): - Continue Zetia, aspirin - Ultrasound Carotid artery showed bilateral stenosis >50% Assessment & Plan (03/13/2025 3:07 AM EDT): Continue Zetia aspirin Assessment & Plan (01/04/2023 3:37 PM EDT): Ordered Carotid US to assess level of stenosis- no neurological events or concerns noted. Onlojophjk97/15/2016 Assessment & Plan (03/19/2025 8:02 AM EDT): -Continue Lexapro Assessment & Plan (03/18/2025 7:20 AM EDT): -Continue Lexapro Assessment & Plan (03/17/2025 8:33 AM EDT): -Continue Lexapro Assessment & Plan (03/16/2025 7:20 AM EDT): -Continue Lexapro Assessment & Plan (03/15/2025 1:59 PM EDT): -Continue Lexapro Assessment & Plan (03/14/2025 2:09 PM EDT): - With issues with hypertension discontinue Wellbutrin she scored 4 on depression scale we will addLexapro Assessment & Plan (03/13/2025 3:07 AM EDT): With issues with hypertension discontinue Wellbutrin she scored 4 on depression scale we will add Lexapro Gastroesophageal reflux gvrhfns9310/02/2015 Immunizations ImmunizationAdministration DatesNext DueCovid (Pfizer) Bivalent Booster =>12 YRS 07/04/2022Influenza, High-dose Seasonal, Quadrivalent, Preservative Free 06/24/2021Influenza, Seasonal, Quadrivalent, Niggwydzai34/17/2022,07/08/2020 Pfizer SARS-CoV-2 Nnzyrftgfjw92/07/2021,11/17/2020,1Pneumococcal Polysaccharide XDF723504/01/2015 Family History Medical HistoryRelationNameCommentsCoronary artery diseaseFatherCoronary artery diseaseMotherStrokeMotherOvarian cancerSisterRelationNameStatusCommentsFather MotherSister Social History Tobacco UseTypesPacks/DayYears UsedDateSmoking Tobacco: Every DayCigarettes Passive Smoke Exposure: PastSmokeless Tobacco: Never Tobacco Cessation:Ready to Q uit: Not Asked; Counseling Given: Not Answered Comments:Uses Vuse vape. Nicotine content is 2.4. Alcohol UseStandard Drinks/WeekCommentsNot Currently0 (1 standard drink = 0.6 oz pure alcohol)OCCASIONALAHC UtilitiesAnswerDate RecordedIn the past 12 months has the A[employer], gas, oil, or water [employer] threatened to shut off services in your home?No03/13/2025Humiliation, Afraid, Rape, and Kick questionnaireAnswerDate RecordedWithin the last year, have you been afraid of your partner or ex-partner?No03/13/2025Emotionally AbusedNot on file03/13/2025Physically Abused Not on file03/13/2025Sexually AbusedNot on file03/13/2025Overall Financial Resource Strain (CARDIA)AnswerDate RecordedHow hard is it for you to pay for the very basics like food, housing, medical care, and heating?Not hard at all 03/13/2025TransportationAnswerDate RecordedIn the past 12 months, has lack of transportation kept you from medical appointments or from getting medications?No 03/13/2025Lack of Transportation (Non-Medical)Not on file03/13/2025Housing Stability Vital SignAnswerDate RecordedUnable to Pay for Housing in the Last YearNot on file03/13/2025Number of Times Moved in the Last YearNot on file 03/13/2025t any time in the past 12 months, were you homeless or living in a jail (including now)?No03/13/2025Hunger Vital SignAnswerDate RecordedWithin the past 12 months, you worried that your food would run out before you got the money to buymore.Never true03/13/2025Ran Out of Food in the Last YearNot on file 03/13/2025CommentsUnknownSex and Gender InformationValueDate RecordedSex Assigned at QipfeYnrmoz02/26/2025 12:43 PM EDTLegal WibQjpqlp44/29/2022 10:16 PM EDTGender QxirjcjaArccer78/26/2025 12:43 PM EDTSexual OrientationHeterosexual or Eymcfwkq18/26/2025 12:43 PM EDT Last Filed Vital Signs Vital SignReadingTime TakenCommentsBlood Jjeaxjfx193/7507 2:13 PM EDT Adrdi6067 2:13 PM VUXSmuhsbsxxrb36.6 ??C (97.9 ??F)03/20/2025 12:00 PM EDTRespiratory Avqn247503/20/2025 12:00 PM EDTOxygen Aaatftkoqw93%04/04/2025 2:13 PM EDTInhaled Oxygen Concentration--Becdus98.2 kg (135 lb)04/04/2025 2:13 PM EDT Lemznr234.5 cm (5' 2 )04/04/2025 2:13 PM EDTBody Mass Index24.6907 2:13 PM EDT Plan of Treatment DateTypeDepartmentCare Team (Latest Contact Info)Vvbqdweswji15/05/2025 3:45 PM ESTOffice Visit [facility] [address] [place] [address] Cristopher Aguilera MD [address] [facility] [place] [address] Health MaintenanceDue DateLast DoneCommentsCT Eteuoyftmobh93/20/1950Diabetes: Hemoglobin A1C1949FIT-DNA1949FIT1949FOBT1949Medicare Annual Wellness (AWV)1950 4660Ohltdfcbatgca44/20/1950Diabetes: Retinopathy Ndgahcyyo06/20/1960Depression Yliqrcvtu66/20/1962Adult Worjbwe8111/07/1971Zoster Vaccines (1 of 2)1999Pneumococcal Vaccine: 50+ Years (2 of 2 - PCV) COVID-19 Vaccine ( season), 07/04/2022, 06/24/2021, Additional history existsInfluenza Vaccine (#1) /, 06/24/2021, 07/08/2020Fall Risk Gtidzxzsq83/03/2026 2033Ovrxirqgydv251Colorectal Cancer Mtflaawxr73/30/2031 HIB VaccinesAged OutNo longer eligible based on patient's age to complete this topicHPV VaccinesAged OutNo longer eligible based on patient's age to complete this topicIPV VaccinesAged OutNo longer eligible based on patient's age to complete this topicMeningococcal B VaccineAged OutNo longer eligible based on patient's age to complete this topicMeningococcal VaccineAged OutNo longer eligible based on patient's age to complete this topicRotavirus VaccinesAged Out No longer eligible based on patient's age to complete this topic Insurance Advance Directives * Full Code (Latest Code Status on File) Date ActivatedDate InactivatedComments03/13/2025 2:55 AM03/20/2025 6:36 PM Care Teams Team MemberRelationshipSpecialtyStart DateEnd Date Jack Vogt MD [address] [facility] [address] [place] [address] PCP - General05/08/22
--- OUTSIDE RECORDS SUMMARY | 2025-07-09 15:44 | XMS_ITS | Encounter Summary ---
Author Organization [facility] Address [address] [place] [address] Care Team Providers Care Eddy Current Inspector Name Role Phone Jack Vogt MD Primary Care Provider [phone] Chantelle Recio PENS AND PENCILS REPAIRER Unavailable [phone] Valerie Go RN Unavailable [phone] Encounter Details DateTypeDepartmentCare Team (Latest Contact Info)Osafggurley88/22/2025bstract [facility] [address] [facility] [address] [place] [address] Jack Vogt MD [address] [facility] 110 [place], [place] [id number] Social History Tobacco UseTypesPacks/DayYears UsedDateSmoking Tobacco: FormerCigarettes Smokeless Tobacco: NeverAlcohol UseStandard Drinks/WeekCommentsDefer0 (1 standard drink = 0.6 oz pure alcohol)caffeine yes type:coffeePHQ-2AnswerDate RecordedPatient Health Questionnaire-2 [id number] Sex and Gender InformationValueDate RecordedSex Assigned at BirthNot on file Legal SoxSoimwg63/15/2023 6:57 PM EDTGender IdentityNot on fileSexual OrientationNot on filedocumented as of this encounter Plan of Treatment Not on file documented as of this encounter Goals GoalPatient Goal TypeAssociated ProblemsRecent ProgressPatient-Stated?Author Help patient manage antidepressant medication Care PlanPatient on antidepressant monitoring Renetta Enamorado NP documented as of this encounter Visit Diagnoses Not on filedocumented in this encounter Additional Health Concerns Active ProblemsNoted DateDiagnosed DatePatient on antidepressant monitoring plan 02/25/2025ssessmentNoted TimePHQ-9 Depression Total Score: 15002/25/2025 11:31 AM EDTdocumented as of this encounter Care Teams Team MemberRelationshipSpecialtyStart DateEnd Date Jack Vogt MD [address] [facility] [address] [place] [address] PCP - GeneralInternal Medicine01/24/23 Chantelle Recio, HIEU [address] [place] [address] Social WorkerFamily Medicine06/10/25 Valerie Go, DEBORA [address] [facility] [address] [place] [address] Registered NurseFamily Aacxfglf92/13/25documented as of this encounter
--- OUTSIDE RECORDS SUMMARY | 2025-07-09 15:44 | XMS_ITS | Encounter Summary ---
Author Organization [facility] Address [address] [place] [address] Care Team Providers Care Blue Line Hanger Name Role Phone Jack Vogt MD Primary Care Provider [phone] Chantelle Recio SPECIAL SERVICES AGENT Unavailable [phone] Valerie Go RN Unavailable [phone] Encounter Details DateTypeDepartmentCare Team (Latest Contact Info)Pfhncnixwmr71/16/2025Abstract [facility] [address] [facility] 110 [place] [address] Jack Vogt MD [address] [facility] 110 [place], [place] [id number] Social History Tobacco UseTypesPacks/DayYears UsedDateSmoking Tobacco: NeverSmokeless Tobacco: NeverAlcohol UseStandard Drinks/WeekCommentsDefer0 (1 standard drink = 0.6 oz pure alcohol)caffeine yes type:coffeePHQ-2AnswerDate RecordedPatient Health Questionnaire-2 Lamas702CommentsUnknownSex and Gender InformationValueDate RecordedSex Assigned at BirthNot [...] MemberRelationshipSpecialtyStart DateEnd Date Jack Vogt MD [address] [facility] 110 [place] [address] PCP - GeneralInternal Medicine01/24/23 Chantelle Recio, HIEU [address] [place] [address] Social WorkerFamily Medicine06/10/25 Valerie Go, RN [address] [facility] [address] [place] [address] Registered NurseFamily Yklvvvqw02/13/25documented as of this encounter
--- OUTSIDE RECORDS SUMMARY | 2025-07-09 15:44 | XMS_ITS | Encounter Summary ---
Author Organization [facility] Address [address] [place] [address] Care Team Providers Care Monogram Maker Name Role Phone Jack Vogt MD Primary Care Provider [phone] Chantelle Recio Unavailable [phone] Valerie Go RN Unavailable [phone] Encounter Details DateTypeDepartmentCare Team (Latest Contact Info)Fsexguazdur36/06/2025Telephone [facility] [address] [facility] 110 [place] [address] Jack Vogt MD [address] [facility] 110 [place], [place] [address] Social History Tobacco UseTypesPacks/DayYears UsedDateSmoking Tobacco: NeverSmokeless Tobacco: NeverAlcohol UseStandard Drinks/WeekCommentsDefer0 (1 standard drink = 0.6 oz pure alcohol)caffeine yes type:coffeePHQ-2AnswerDate RecordedPatient Health Questionnaire-2 [id number] and Gender InformationValueDate RecordedSex Assigned at BirthNot on fileLegal SexFemale 11/30/2022 6:57 PM EDTGender IdentityNot on fileSexual OrientationNot on file documented as of this encounter Progress Notes * HIEU Reese - 06/30/2025 4:02 PM EDT <June 30, 2025, 16:02 - HIEU Reese> Pt has had [facility] in the past. Spoke to pt, and she is interested in having [facility] again. Advised referral would be sent and she should notify CCM if she does not hear from HH inthe next few days. * HIEU Reese - 06/25/2025 9:59 AM EDT <June 25, 2025, 09:59 - HIEU Reese> Most recent labs faxed to [facility] Dr. Espinosa * HIEU Reese - 06/24/2025 8:31 AM EDT <June 24, 2025, 08:31 - HIEU Reese> Spoke to pt yesterday. She is agreeable to home visit by [employer]. Discussed that she was already referred for home delivered meals, but denies receiving call for this. Advised CHIEF CONTRACT OFFICER would follow up on referral. Called [facility]. They state they are currently at capacity and pt is on a waiting list. <June 24, 2025, 09:55 - HIEU Reese> Called pt, notified of waiting list for home delivered meals. Offered paid meal delivery service. Pt has tried [employer] before and didn't like it. She will wait to hear from [employer]. Also advised that our home-visiting [employer] Malia will be contacting her to schedule. Pt has not received [facility] hardship form yet. Enc her to watch for it in the mail. documented in this encounter Miscellaneous Notes * Telephone Encounter - 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 NP - 06/30/2025 10:18 AM EDT Ok to send note with order for home health. Please make sure the home health company is aware that it will be Dr. Vogt following. * Telephone Encounter - Brianne Calhounsanta - 06/23/2025 11:42 AM EDT Patient called regarding her appointment today and said she doesn't have a ride to be able to make it to the appointment. She suggested a televisit but I explained to her at this time we are unable to do that. She wondered if we were able to set soemthing up with meals on wheels and home healthcarewithout the appoinment for today. documented in this encounter Plan of Treatment Not on file documented as of this encounter Goals GoalPatient Goal TypeAssociated ProblemsRecent ProgressPatient-Stated?Author Help patient manage antidepressant medication Care PlanPatient on antidepressant monitoring planRenetta Field NP documented as of this encounter Visit Diagnoses Diagnosis Chronic kidney disease, stage 4 (severe) (HCC)- Primary Chronic diastolic congestive heart failure (HCC) documented in this encounter Additional Health Concerns Active ProblemsNoted DateDiagnosed DatePatient on antidepressant monitoring plan 5AssessmentNoted TimePHQ-9 Depression Total Score: 15002/25/2025 11:31 AM EDTdocumented as of this encounter Care Teams Team MemberRelationshipSpecialtyStart DateEnd Date Jack Vogt MD [address] [facility] [address] [place] [address] PCP - GeneralInternal Medicine01/24/23 Chantelle Recio, HIEU [address] [place] [address] Social WorkerFamily Medicine06/10/25 Valerie Go, DEBORA [address] [facility] [address] [place] [address] Registered NurseFamily Vjqtcowk43/13/25documented as of this encounter
--- OUTSIDE RECORDS SUMMARY | 2025-07-09 15:44 | XMS_ITS | Clinical Summary ---
Author Organization [facility] Address [address] [place] [address] Care Team Providers Care Box Icer Name Role Phone Jack Viera Primary Care Provider [phone] Social History Tobacco UseTypesPacks/DayYears UsedDateSmoking Tobacco: Never Assessed CommentsUnknownSex and Gender InformationValueDate RecordedSex Assigned at Not on fileLegal NnsYgisyu50/02/2012 9:29 AM ESTGender IdentityNot on fileSexual OrientationNot on file Plan of Treatment Not on file Care Teams Team MemberRelationshipSpecialtyStart DateEnd Date Jack Viera [facility] [place] [address] PCP - General12/28/00
--- OUTSIDE RECORDS SUMMARY | 2025-07-09 15:44 | XMS_ITS | Encounter Summary ---
Author Organization [facility] Address [address] [place] [address] Care Team Providers Care Computer Salesperson Retail Name Role Phone Jack Vogt MD Primary Care Provider [phone] Chantelle Recio HEALTH CARE ANALYST Unavailable [phone] Valerie Go RN Unavailable [phone] Encounter Details DateTypeDepartmentCare Team (Latest Contact Info)Imizgwktjiq21/21/2025Telephone [facility] [address] [facility] 110 [place] [address] Jack Vogt MD [address] [facility] 110 [place], [place] [address] Social History Tobacco UseTypesPacks/DayYears UsedDateSmoking Tobacco: NeverSmokeless Tobacco: NeverAlcohol UseStandard Drinks/WeekCommentsDefer0 (1 standard drink = 0.6 oz pure alcohol)caffeine yes type:coffeePHQ-2AnswerDate RecordedPatient Health Questionnaire-2 Nckru135CommentsUnknownSex and Gender InformationValueDate RecordedSex Assigned at BirthNot on fileLegal SexFemale 11/30/2022 6:57 PM EDTGender IdentityNot on fileSexual OrientationNot on file documented as of this encounter Miscellaneous Notes * Telephone Encounter - Jaki Barnett MA - 07/09/2025 10:40 AM EDT Faxed over dx list to number given * Telephone Encounter - Brianne Portillo - 07/09/2025 9:54 AM EDT [facility] called back stating that they need a list of the patients diagnoses signed and dated by Sin and faxed to [phone]. She said they have the visit by brannon mckeon on 06/27 but it does not have all of her diagnoses on it and they need that for a face to face. * Telephone Encounter - CARO JOHNS - 07/08/2025 2:12 PM EDT Twyla from [facility] called and has some concerns with the patient and her blood pressure reading the last few day it has been running high and she wasn't sure if rodriguez would like to make any changes. documented in this encounter Plan of Treatment [...] MemberRelationshipSpecialtyStart DateEnd Date Jack Vogt MD [address] [facility] [address] [place] [address] PCP - GeneralInternal Medicine01/24/23 Chantelle Recio LSW [address] [place] [address] Social WorkerFamily Medicine06/10/25 Valerie Go, DEBORA [address] [facility] [address] [place] [address] Registered NurseFamily Ijkvyeht08/13/25documented as of this encounter
--- OUTSIDE RECORDS SUMMARY | 2025-07-09 15:44 | XMS_ITS | Encounter Summary ---
Author Organization [facility] Address [address] [place] [address] Care Team Providers Care Copy Messenger Name Role Phone Jack Vogt MD Primary Care Provider [phone] Chantelle Recio SHIFT SUPERVISOR RN Unavailable [phone] Valerie Go RN Unavailable [phone] Reason for Referral * Home Health (Routine) - AuthorizedSpecialtyDiagnoses / ProceduresReferred By ContactReferred To [facility] Diagnoses Fibromyalgia Degenerative lumbar spinal stenosis Radiculopathy of lumbar region Spondylolisthesis of lumbar region Spinal stenosis, lumbar region with neurogenic claudication 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 NP [address] [place] [address] Phone: tel: [facility]: [facility] Referral IDStatusReasonStart DateExpiration DateVisits RequestedVisits [id number] Specialty Services Required [id number] Encounter Details DateTypeDepartmentCare Team (Latest Contact Info)Jezwvpsplzt29/13/2025Patient Outreach [facility] [address] [place] [phone] Chantelle Recio LSW [address] [place] [address] Social History Tobacco UseTypesPacks/DayYears UsedDateSmoking Tobacco: NeverSmokeless Tobacco: NeverAlcohol UseStandard Drinks/WeekCommentsDefer0 (1 standard drink = 0.6 oz pure alcohol)caffeine yes type:coffeePHQ-2AnswerDate RecordedPatient Health Questionnaire-2 [id number] and Gender InformationValueDate RecordedSex Assigned at BirthNot on fileLegal SexFemale 11/30/2022 6:57 PM EDTGender IdentityNot on fileSexual OrientationNot on file documented as of this encounter Progress Notes * HIEU Reese - 06/30/2025 4:03 PM EDT <June 30, 2025, 16:04 - HIEU Reese> Called pt. She is advised of 66% responsibility for CCM services, she consents to continued CCM services. HIEU offers nurse to follow up with her for education re: kidney disease and diet. Pt interested. Pt notified of referral sent to [facility] at her request. She agrees to notify CCM if she does not hear from in the next few days. * HIEU Reese - 06/30/2025 4:03 PM EDT <July 02, 2025, 09:38 - HIEU Reese> [facility] has SOC visit scheduled today documented in this encounter Plan of Treatment NameTypePriorityAssociated DiagnosesOrder ScheduleAmbulatory referral to Home HealthOutpatient ReferralRoutine Fibromyalgia Degenerative lumbar spinal stenosis Radiculopathy of lumbar region Spondylolisthesis of lumbar region Spinal stenosis, lumbar region with neurogenic claudication Expected: 06/30/2025 (Approximate), Expires: 12/29/2025documented as of this encounter Goals GoalPatient Goal TypeAssociated ProblemsRecent ProgressPatient-Stated?Author Help patient manage antidepressant medication Care PlanPatient on antidepressant monitoring planNoRenetta Burton NP documented as of this encounter Visit Diagnoses Diagnosis Depressive disorder- Primary Depressive disorder, not elsewhere classified Fibromyalgia Unspecified myalgia and myositis Degenerative lumbar spinal stenosis Spinal stenosis of lumbar region Radiculopathy of lumbar region Spondylolisthesis of lumbar region Spinal stenosis, lumbar region with neurogenic claudication documented in this encounter Additional Health Concerns Active ProblemsNoted DateDiagnosed DatePatient on antidepressant monitoring plan 02/25/2025ssessmentNoted TimePHQ-9 Depression Total Score: 15002/25/2025 11:31 AM EDTdocumented as of this encounter Care Teams Team MemberRelationshipSpecialtyStart DateEnd Date Jack Vogt MD [address] [facility] [address] [place] [address] PCP - GeneralInternal Medicine01/24/23 Chantelle Recio, HIEU [address] [place] [address] Social WorkerFamily Medicine06/10/25 Valerie Go, DEBORA [address] [place] [address] Registered NurseFamily Ctbikllt59/13/25documented as of this encounter
--- OUTSIDE RECORDS SUMMARY | 2025-07-09 15:45 | XMS_ITS | Clinical Summary ---
Author Organization [facility] Address [address] [place] [address] Care Team Providers Care Supply Chain Buyer Name Role Phone Jack Vogt MD Primary Care Provider [phone] Chantelle Recio [employer] SUPERVISOR Unavailable [phone] Valerie Go RN Unavailable Allergies Active AllergyReactionsCriticalityNoted WgvkJwlpqnlvFynnjgqjprhf23/22/2023 Other Reaction(s): Myalgias Pfqjam7805/09/2023 Other Reaction(s): Unknown Eonijjowvv06/22/2023 Other Reaction(s): Myalgias UhdfhqQvurnkddbiPthivm59/17/2018 skin irritation and itching with jewelry worn Other reaction(s): Dermatitis skin irritation and itching with jewelry worn Other12/12/2024 Other Reaction(s): myalgias (muscle pain) Pneumococcal Vac Jfqgybnhpd89/22/2023 Other Reaction(s): Swelling, Redness Rerydbbwagy05/22/2023 Other Reaction(s): Myalgias Shellfish RzpdmrhHfhvfejwgmgOriz18/17/3992Xeoabdwxjnl54/22/2023 Other Reaction(s): Myalgias LjliwctQvtndky34/27/2025 Other Reaction(s): Other (See Comments) Imqxpjzgfzn61/22/2023 Other Reaction(s): Vomiting Medications MedicationSigDispense QuantityRefillsLast FilledStart DateEnd DateStatus nitroglycerin (Nitrostat) 0.4 MG SL tablet Indications:Atherosclerosis 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Place 1 tablet (0.4 mg) under the tongue every 5 (five) minutes if needed for chest pain 90 tablet 1204Active fenofibrate (Tricor) 145 MG tablet Indications:Mixed hyperlipidemiaTAKE 1 TABLET BY MOUTH EVERY DAY 90 tablet 4025Active ezetimibe (Zetia) 10 MG tablet Indications:Stage 3b chronic kidney disease ([facility])TAKE 1 TABLET BY MOUTH EVERY DAY 90 tablet 3045Active apixaban (Eliquis) 2.5 MG tablet Indications:Personal history of other venous thrombosis and embolismTake 1 tablet (2.5 mg) by mouth in the morning and 1 tablet (2.5 mg) before bedtime. 200 tablet 5Active zolpidem (Ambien) 5 MG tablet Indications:Insomnia due to medical conditionTake 1 tablet (5 mg) by mouth as needed at bedtime for sleep 30 tablet 50506Active traMADol (Ultram) 50 MG tablet Indications:Primary osteoarthritis of both kneesTake 1 tablet (50 mg) by mouth every 8 (eight) hours if needed for severe pain 60 tablet 5Active carvedilol (Coreg) 25 MG tablet Indications:Benign essential hypertensionTake 1 tablet (25 mg) by mouth in the morning and 1 tablet (25 mg) in the evening. Take with meals. 180 tablet 5Active pantoprazole (ProtoNix) 40 MG EC tablet Indications:Gastroesophageal reflux disease, unspecified whether esophagitis presentTake 1 tablet (40 mg) by mouth Daily 90 tablet 5Active hydrALAZINE (Apresoline) 100 MG tablet Indications:Benign essential hypertensionTake 1 tablet (100 mg) by mouth in the morning and 1 tablet (100 mg) in the evening and 1 tablet (100 mg) before bedtime. 90 tablet 1107/6802856Active NIFEdipine XL (Procardia XL) 90 MG 24 hr tablet Indications:Atherosclerosis 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Take 1 tablet (90 mg) by mouth in the morning and 1 tablet (90 mg) before bedtime. 180 tablet 5Active cloNIDine (Catapres) 0.1 MG tablet Indications:Benign essential hypertensionTake 1 tablet (0.1 mg) by mouth in the morning and 1 tablet (0.1 mg) in the evening and 1 tablet (0.1 mg) before bedtime. 270 tablet 5Active aspirin 81 MG EC tablet Take 81 mg by mouth DailyActive furosemide (Lasix) 40 MG tablet Take 40 mg by mouth in the morning and 40 mg before bedtime.5Active isosorbide mononitrate ER (Imdur) 30 MG 24 hr tablet Take 30 mg by mouth Dailyctive doxazosin (Cardura) 2 MG tablet Indications:Atherosclerosis 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TAKE 1 TABLET (2 MG) BY MOUTH IN THE MORNING 90 tablet /6Active escitalopram (Lexapro) 5 MG tablet Indications:Depressive disorderTAKE 1 TABLET BY MOUTH EVERY DAY IN THE MORNING 90 tablet 5Active escitalopram (Lexapro) 5 MG tablet Indications:Depressive disorderTake 1 tablet (5 mg) by mouth in the morning. 30 tablet Discontinued doxazosin (Cardura) 2 MG tablet Indications:Atherosclerosis 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Take 1 tablet (2 mg) by mouth in the morning. 30 tablet Discontinued potassium chloride CR (Klor-Con M10) 10 MEQ ER tablet Indications:HypokalemiaTake 1 tablet (10 mEq) by mouth in the morning and 1 tablet (10 mEq) before bedtime. Do all this for 7 days. Do not crush or chew. 14 tablet Expired Active Problems ProblemNoted DateDiagnosed HntvKtgesdeppk42/07/2024Stage 3b chronic kidney bjgeddu5910/04/2023Localized edema10/04/2023Kidney qevqlw6805/10/2023ulmonary embolism with ulexiixwlr44/18/2023therosclerosis of [place] coronary artery of [place] heart with stable angina lrkygftk36/18/2023ERD (gastroesophageal reflux disease)05/05/2023epressive icyjycpk02/18/2023enign essential hypertension 05/05/2023arotid artery xqsofxpuq91/18/2023Mixed pdegguzqcjnwyb83/18/2023 Primary osteoarthritis of both knees05/05/20235118Mbqgjpjflqlk77/18/2023rimary generalized hypertrophic ozlnsepbwqkreg09/18/2023Fibrocystic breast changes 05/05/2023Stricture of oaemvk5105/05/2023AD (peripheral artery disease)05/05/2023 Tobacco skfttkvole44/18/2023rteriosclerosis nizojoywlh25/18/2023Renal artery vkblphqo72/18/2023aytime zhsfbfkbin86/18/2023Spinal stenosis, lumbar region with neurogenic ogujwinriiuu48/18/2023Radiculopathy of lumbar plrggh2205/05/2023 Degenerative lumbar spinal jbljjhlu63/18/2023Spondylolisthesis of lumbar region 05/05/2023Spondylosis of lumbar spine05/05/2023Left foot drop05/05/2023Venous insufficiency (chronic) (peripheral)05/05/2023eripheral arteriosclerosis 05/05/2023Obesity (BMI 30.0-34.9)05/05/2023Non-intractable vomiting with nausea 05/05/2023Insomnia due to medical ypfajnzml17/18/2023ortic dissection, jflnsycdv98/18/2023ecreased estrogen level05/05/2023ge-related osteoporosis without current pathological xitxkbqn06/18/2023roteinuria, unspecified 05/05/2023Thyroid psdcoq5605/05/2023Sinus mhkthqjhca95/18/6562Fnmubev96/18/2023 Irritable bowel dwblnboj67/18/2023nemia due to chronic blood loss05/05/2023 Allergy to qshjgsw9605/05/2023Statin heuavjeuywf43/18/2023ostsurgical percutaneous transluminal coronary angioplasty nigdux7405/05/2023nticoagulated 01/04/2023oronary atherosclerosis of autologous vein bypass graft05/04/2022 Overview (05/10/2023): Last Assessment & Plan: stable Coronary stent qffkkk0905/04/2022ulmonary qesngqh1805/04/2022History of pulmonary cpwshguc64/30/2021History of thromboembolism of vein03/31/2021History of coronary artery bypass baeozdr6901/09/2020History of coronary artery stent jxlegwhym26/23/2020Allergy to statin xeiwghoasu65/20/2020Current nicotine use 02/27/2019Lumbosacral spondylosis without /25/2019Cardiovascular stress test wfmsswug61/05/2018Chest pain05/23/20187758Wvafzexwksmvc05/05/2018 Neurogenic sidbgbdcrudv77/21/2018 Resolved Problems ProblemNoted DateDiagnosed DateResolved DateGeneralized abdominal pain05/05/2023 04/03/2025Type 2 diabetes mellitus with other diabetic kidney complication /11/20233450Dukzylxzm10Diabetic renal disease Encounters DateTypeDepartmentCare VcamLzcirldpoji32/22/2025Patient Outreach [facility] [address] [place] [address] Valerie Go RN 07/09/2025bstract [facility] [address] [place] [address] Jack Vogt MD 07/08/2025[facility] [address] [place] [address] Jack Vogt MD 07/03/2025bstract [facility] [address] [place] [address] Jack Vogt MD 06/30/2025Patient Outreach [facility] [address] [place] [address] Chantelle Recio LSW 06/27/2025 12:00 PM EDTOffice Visit [facility] [address] [place] [phone] 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, LUCRETIA Chronic kidney disease, stage 4 (severe) (HCC) (Primary Dx); Chronic diastolic congestive heart failure (HCC); Atherosclerosis 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; Benign essential hypertension; Degenerative lumbar spinal stenosis; Radiculopathy of lumbar region; Spinal stenosis, lumbar region with neurogenic claudication; Spondylolisthesis of lumbar region; Need for home health care; Routine lab draw; Advanced care planning/counseling /10/2025Telephone [facility] [address] [place] [phone] 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 NP 06/23/2025Telephone [facility] [address] [place] [address] Jack Vogt MD 06/20/2025Refill [facility] [place] [facility] [address] [place] [address] Jack Vogt MD Atherosclerosis 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; Depressive /23/2025Patient Outreach [facility] [address] [place] [phone] Chantelle Recio LSW 06/09/2025 11:15 AM EDTOffice Visit [facility] [address] [place] [phone] Jack Vogt MD Chronic kidney disease, stage 4 (severe) (HCC) (Primary Dx); Benign essential hypertension ; Functional diarrhea; 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 ; Chronic diastolic congestive heart failure (HCC); Uwwsqlihxoh66/22/2025linisync Result Encounter [facility] External Department Unsolicited Jack Vogt MD 06/09/2025Telephone [facility] [address] [place] [address] Jack Vogt MD 06/09/2025Telephone [facility] [address] [place] [address] Jack Vogt MD call with hwtxbeo9906/09/2025amboo flowsheet [facility] [address] [place] [address] Jack Vogt MD 06/09/20255965Hxeyjm60/08/2025bstract [facility] [address] [place] [address] Jack Vogt MD 05/21/2025bstract [facility] [address] [place] [address] Jack Vogt MD 05/14/2025Telephone [facility] [address] [place] [address] Jack Vogt MD 05/13/2025bstract [facility] [address] [place] [address] Jack Vogt MD 05/12/2025bstract [facility] [address] [place] [address] Jack Vogt MD 05/08/2025Telephone [facility] [address] [place] [address] Jack Vogt MD Qpypyl8304/29/2025bstract [facility] [address] [place] [address] Jack Vogt MD 04/29/2025bstract [facility] [address] [place] [address] Jack Vogt MD 04/24/2025bstract [facility] [address] [place] [address] Jack Vogt MD 04/24/2025bstract [facility] [address] [place] [address] Jack Vogt MD 04/24/2025bstract [facility] [address] [place] [address] Jack Vogt MD 04/17/2025bstract [facility] [address] [place] [address] Jack Vogt MD 04/15/2025Telephone [facility] [address] [place] [address] Jack Vogt MD 04/15/2025Patient Outreach [facility] [address] [place] [address] Lucy Dooley, ICE CREAM FREEZER 04/14/2025bstract [facility] [address] [place] [address] Jack Vogt MD 04/10/2025bstract [facility] [address] [place] [address] Jack Vogt MD 04/10/2025bstract [facility] [address] [place] [address] Jack Vogt MD 04/10/2025bstract [facility] [address] [place] [address] Jack Vogt MD 04/09/2025bstract [facility] [address] [place] [address] Jack Vogt MD 04/09/2025bstract [facility] [address] [place] [address] Jack Vogt MD 04/09/2025bstract [facility] [address] [place] [address] Jack Vogt MD 04/09/2025bstract [facility] [address] [place] [address] Jack Vogt MD 04/08/2025Telephone [facility] [place] [facility] [address] [facility] [address] [place] [address] Jack Vogt MD FYI04/08/2025bstract [facility] [place] [facility] [address] [facility] [address] [place] [phone] Jack Vogt MD from Last 3 Months Immunizations ImmunizationAdministration DatesNext DueInfluenza, High-dose Seasonal, Quadrivalent, Preservative Free06/24/2021Influenza, Seasonal, Quadrivalent, Pokwremwla62/17/2022,07/08/2020Moderna Bivalent Booster Zrtpgmycmnv40/17/2022 Pneumococcal Polysaccharide TTRO0079Smallpox Monkeypox, Live Attenuated, Preservative Free07/08/2020 Family History Medical HistoryRelationNameCommentsLymphomaBrotherHeart diseaseFatherStroke FatherHeart diseaseMotherOvarian cancerSisterDiabetesSonRelationNameStatus CommentsBrotherFatherDeceasedMotherDeceasedSisterSonAlive Social History Tobacco UseTypesPacks/DayYears UsedDateSmoking Tobacco: FormerCigarettes Smokeless Tobacco: Never Tobacco Cessation:Counseling Given: Not Answered Alcohol UseStandard Drinks/WeekCommentsDefer0 (1 standard drink = 0.6 oz pure alcohol)caffeine yes type:coffeePHQ-2AnswerDate RecordedPatient Health Questionnaire-2 Uaycg169CommentsUnknownSex and Gender InformationValueDate RecordedSex Assigned at BirthNot on fileLegal SexFemale 11/30/2022 6:57 PM EDTGender IdentityNot on fileSexual OrientationNot on file Last Filed Vital Signs Vital SignReadingTime TakenCommentsBlood Iehwkwpy924/6010 1:28 PM EDT Qxjda673106/27/2025 1:28 PM WQMSjzdtqoiuoe96.4 ??C (97.5 ??F)06/27/2025 1:28 PM EDTRespiratory Gdwp860902/25/2025 11:40 AM EDTOxygen Lgtaleveof11%06/27/2025 1:28 PM EDTInhaled Oxygen Concentration--Uywese96.5 kg (129 lb)06/09/2025 11:14 AM KCAKfalgo340.5 cm (5' 2 )06/09/2025 11:14 AM EDTBody Mass Index23.59006/09/2025 11:14 AM EDT Plan of Treatment Health MaintenanceDue DateLast DoneCommentsCT Oqkdgrdhtwsa66/20/1950FIT-DNA 1950FIT1950FOBT1949 8165Rxvqqvdgrkvyu02/20/1950Diabetes: Retinopathy Ixlzeyjhh23/11/2022, 3Diabetes: Urine Protein Msfbbbmkd48, 10/09/2019, 09/28/2018Diabetes: Hemoglobin A1C , 03/20/2024, 12/13/2023, Additional history existsInfluenza Vaccine (#1)51, 06/24/2021, 07/08/20203614Odjdwadwewo20/30/2031 1Colorectal Cancer Umdmctplo28/30/2031Pneumococcal Vaccine: 65+ Years Xfdduqgpanrb57/15/8647GnkcoegkxWirhblgxbton56/20/2024, 02/05/2024, 02/03/2023, Additional history exists Goals GoalPatient Goal TypeAssociated ProblemsRecent ProgressPatient-Stated?Author Help patient manage antidepressant medication Care PlanPatient on antidepressant monitoring Renetta Enamorado NP Procedures Procedure NamePriorityDate/TimeAssociated DiagnosisCommentsCOMPREHENSIVE METABOLIC PYBVSWkikyhu65/10/2025 3:03 PM EDT Chronic kidney disease, stage 4 (severe) (HCC) ALL THYROXINE (T4) DLYDOiiehjq34/22/2025 12:41 PM EDT ALL CBC WITH AUTO PURKZaygalh66/22/2025 12:41 PM EDT TSH W/REFLEX N3Nmuhdki27/22/2025 12:41 PM EDT ALL PRO EAYLdjtxja61/22/2025 12:41 PM EDT [facility] CMP (CMP) (FOR REMOTE [facility] USE)Gehkqra6906/09/2025 12:41 PM EDT POCT GLYCATED HEMOGLOBIN, EYZQMItuljym97/27/2025 12:07 PM EDT Type 2 diabetes mellitus with diabetic peripheral angiopathy without gangrene (HCC) MAMMOGRAM*Rgndzno1102/05/2024 1:10 PM EDTMICROALBUMIN / CREATININE URINE RATIO Mkxvlwu0712/13/2023 11:50 AM EDT Type 2 diabetes mellitus with stage 3b chronic kidney disease, without long-term current use of insulin (HCC) COLOR FUNDUS PHOTOGRAPHY - OU - BOTH VJIBMkfcvjk08/03/2023 12:00 PM EST NVLKGGASYJEXvkzrjc96/30/2021 12:00 PM EDT from Last 3 Months or Most Recently Relevant to Health Maintenance Results * (ABNORMAL) Comprehensive metabolic panel (06/27/2025 3:03 PM EDT)Component ValueRef RangeTest MethodAnalysis TimePerformed AtPathologist SignatureGlucose 124(H)65 - 99 mg/dLQUESTComment: ? Fasting reference interval For someone without known diabetes, a glucose value between 100 and 125 mg/dL is consistent with prediabetes and should be confirmed with a follow-up test. BUN72(H)7 - 25 mg/dLQUESTCreatinine3.66(H)0.60 - 1.00 mg/mPBEEUNOEFG95(L)> OR = 60 mL/min/1.65u5GOSFIRFY/CREATININE QVWGU883 - 22 (calc)UIUOWOpbbyk565732 - 146 mmol/LQUESTPotassium, Bld3.3(L)3.5 - 5.3 mmol/IOUHWMKqbwckll50739 - 110 mmol/L QUESTCarbon Aokohhl8833 - 32 mmol/LQUESTCalcium6.6(L)8.6 - 10.4 mg/dLQUEST PROTEIN, TOTAL6.0(L)6.1 - 8.1 g/dLQUESTALBUMIN3.73.6 - 5.1 g/dLQUESTGLOBULIN2.3 1.9 - 3.7 g/dL (calc)QUESTALBUMIN/GLOBULIN RATIO1.61.0 - 2.5 (calc)QUEST BILIRUBIN, TOTAL0.70.2 - 1.2 mg/dLQUESTALKALINE PCFSJGRJMTH28(L)37 - 153 U/L NWCODMKD1097 - 35 U/WZYOVDIQM86 - 29 U/LQUESTSpecimen (Source)Anatomical Location / LateralityCollection Method / VolumeCollection TimeReceived TimeBlood Venous blood specimen / Snpbrui1006/27/2025 3:03 PM EDT1 3:04 PM EDT Narrative Resulting Agency Comment Performing Organization Information ?Site ID: QPT ?Name: [employer] [facility] ?Address: [address] [place] [id number] ?Director: Figueroa Jacques MD Authorizing ProviderResult TypeResult Status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 NPOTTAWA COUNTY [facility] BLOOD ORDERABLESFinal ResultPerforming OrganizationAddressCity/State/ZIP CodePhone Number [facility] * (ABNORMAL) TSH W/REFLEX T4 (06/09/2025 12:41 PM EDT)ComponentValueRef Range Test MethodAnalysis TimePerformed AtPathologist SignatureTSH4.130(H)0.358 - 3.740 uIU/mLTBHSpecimen (Source)Anatomical Location / LateralityCollection Method / VolumeCollection TimeReceived Time06/09/2025 12:41 PM EDT06/09/2025 12:42 PM EDT Narrative [facility] - 06/09/2025 1:32 PM EDT Authorizing ProviderResult TypeResult StatusDaeldon Vogt MDOTTAWA COUNTY [facility]ENTER BLOOD ORDERABLESFinal ResultPerforming OrganizationAddressCity/State/ZIP CodePhone Number [facility] TBH * (ABNORMAL) [facility] CMP (CMP) (FOR REMOTE [facility] USE) (06/09/2025 12:41 PM EDT) ComponentValueRef RangeTest MethodAnalysis TimePerformed AtPathologist TyxvxtnlhPDBCOW791049 - 145 mmol/LTBHPOTASSIUM3.0(L)3.5 - 5.1 mmol/LTBH ATRRGZUP18177 - 107 mmol/LTBHCARBON NVYJIHY95.521.0 - 32.0 mmol/LTBHANION GAP 14.6MSTQIQDYJI3919 - 106 mg/dLTBHBLOOD UREA XROMAJZV77.0(H)7.0 - 18.0 mg/dLTBH CREATININE3.80(H)0.55 - 1.02 mg/dLTBHTBH EGFR-AF QABUGZHB37(L)>=60 mL/min/1.73m 2TBHTBH EGFR-NON AF LCZKNTYE24(L)>=60 mL/min/1.73m 2TBHBUN CREATININE RATIO16.0IUXOWJANSS7.8(L)8.5 - 10.1 mg/dLTBHBILIRUBIN TOTAL0.80.2 - 1.0 mg/dLTBHASPARTATE AMINO FGUISIBPLNC8378 - 37 U/LTBHALANINE LBDMUELLGQAMELKZ56(L)14 - 59 U/LTBHALKALINE LRWJJDSYFLD40(L)46 - 116 U/LTBH TOTAL PROTEIN7.26.4 - 8.2 g/dLTBHALBUMIN LEVEL3.43.4 - 5.0 g/dLTBHGLOBULIN3.8 g/dLTBHALBUMIN GLOBULIN RATIO0.9TBHSpecimen (Source)Anatomical Location / LateralityCollection Method / VolumeCollection TimeReceived Time06/09/2025 12:41 PM EDT06/09/2025 12:42 PM EDT Narrative [facility] - 06/09/2025 1:32 PM EDT Authorizing ProviderResult TypeResult StatusDaniel Janusz Vogt MDCLINISYNCFinal ResultPerforming OrganizationAddressCity/State/ZIP CodePhone Number [facility] * ALL THYROXINE (T4) FREE (06/09/2025 12:41 PM EDT)ComponentValueRef RangeTest MethodAnalysis TimePerformed AtPathologist SignatureFREE T41.280.76 - 1.46 ng/dLTBHSpecimen (Source)Anatomical Location / LateralityCollection Method / VolumeCollection TimeReceived Time06/09/2025 12:41 PM EDT06/09/2025 12:42 PM EDT Narrative [facility]VA - 06/09/2025 2:01 PM EDT Authorizing ProviderResult TypeResult StatusDaeldon Vogt [facility] IDABELLINISYNCFinal ResultPerforming OrganizationAddressCity/State/ZIP CodePhone Number [facility] * (ABNORMAL) ALL PRO BNP (06/09/2025 12:41 PM EDT)ComponentValueRef RangeTest MethodAnalysis TimePerformed AtPathologist SignatureNT PRO B TYPE NATRIURETIC PEPT18,501.0(HH)<=1,800.0 pg/mLTBHComment:RESULTS CALLED TO CARO ALONZO MA Specimen (Source)Anatomical Location / LateralityCollection Method / Volume Collection TimeReceived Time06/09/2025 12:41 PM EDT06/09/2025 12:42 PM EDT Narrative [facility] - 06/09/2025 1:32 PM EDT Authorizing ProviderResult TypeResult StatusJack Vogt [facility] IDABELLINISYNCStony Brook Eastern [facility] Hospitalal ResultPerforming OrganizationAddressCity/State/ZIP CodePhone Number [facility] * (ABNORMAL) ALL CBC WITH AUTO DIFF (06/09/2025 12:41 PM EDT)ComponentValueRef RangeTest MethodAnalysis TimePerformed AtPathologist SignatureTBH WBC2.9(L)4.0 - 11.0 10 3/uLTBHTBH RBC3.39(L)4.20 - 5.40 10 6/uLTBHTBH HGB9.7(L)12.0 - 16.0 g/dLTBHTBH HCT29.3(L)36.0 - 48.0 %TBHTBH MCV86.481.0 - 99.0 fLTBHTBH MCH28.6 26.7 - 34.0 pgTBHTBH MCHC33.129.9 - 35.2 g/dLTBHTBH RDW16.3(H)11.0 - 15.0 %TBH TBH IGV330654 - 450 10 3/uLTBHTBH MPV11.19.5 - 13.5 fLTBHNEUTROPHILS PERCENT AUTO57.743.0 - 75.0 %TBHLYMPHOCYTES PERCENT AUTO29.620.5 - 60.0 %TBHMONOCYTES PERCENT AUTO9.31.7 - 12.0 %TBHTBH EO %2.40.9 - 7.0 %TBHBASOPHILS PERCENT AUTO 0.70.2 - 2.0 %TBHIMMATURE GRANULOCYTES PCT AUTO0.30.0 - 0.5 %TBHNEUTROPHILS ABSOLUTE AUTO1.71.4 - 6.5 10 3/uLTBHLYMPHOCYTES ABSOLUTE AUTO0.9(L)1.2 - 3.8 10 3/uLTBHMONOCYTES ABSOLUTE AUTO0.30.3 - 0.8 10 3/uLTBHTBH EO #0.10.0 - 0.7 10 3/uLTBHBASOPHILS ABSOLUTE AUTO0.00.0 - 0.1 10 3/uLTBHIMMATURE GRANULOCYTES ABS AUTO0.010.00 - 0.03 10 3/uLTBHSpecimen (Source)Anatomical Location / LateralityCollection Method / VolumeCollection TimeReceived Time06/09/2025 12:41 PM EDT06/09/2025 12:42 PM EDT Narrative [facility] - 06/09/2025 1:57 PM EDT Authorizing ProviderResult TypeResult StatusDaeldon Vogt MDCLINISYNCFinal ResultPerforming OrganizationAddressCity/State/ZIP CodePhone Number [facility] * POCT Glycated hemoglobin, total (12/12/2024 12:07 PM EDT)ComponentValueRef RangeTest MethodAnalysis TimePerformed AtPathologist SignatureHemoglobin A1C 5.0Specimen (Source)Anatomical Location / LateralityCollection Method / Volume Collection TimeReceived MthuThpwj77/27/2025 12:07 PM EDT Narrative Authorizing ProviderResult TypeResult StatusDaeldon Vogt MDPOINT OF CARE TEST ENTER/EDIT ORDERABLESFinal Result * MAMMOGRAM* (02/05/2024 1:10 PM EDT)Anatomical RegionLateralityModality Radiographic Imaging Narrative Authorizing ProviderResult TypeResult StatusNoms Provider Unallocated MDIMG XR PROCEDURESFinal Result * (ABNORMAL) Microalbumin / creatinine urine ratio (12/13/2023 11:50 AM EDT) ComponentValueRef RangeTest MethodAnalysis TimePerformed AtPathologist SignatureCREATININE, RANDOM JGZGA7933 - 275 mg/dLQUESTALBUMIN, URINE36.2See Note: mg/dLQUESTComment: Reference Range: Reference Range Not established Results verified by repeat analysis on dilution. ALBUMIN/CREATININE RATIO, RANDOM PEDLR423(H)<30 mg/g creatQUESTComment: The ADA defines abnormalities in albumin excretion as follows: Albuminuria Category ?Result (mg/g creatinine) Normal to Mildly increased <30 Moderately increased ? 30-299 Severely increased > OR = 300 The ADA recommends that at least two of three specimens collected within a 3-6 month period be abnormal before considering a patient to be within a diagnostic category. Specimen (Source)Anatomical Location / LateralityCollection Method / Volume Collection TimeReceived TimeUrineUrine specimen obtained by clean catch procedure / Wrshnqk5112/13/2023 11:50 AM EDT12/13/2023 11:50 AM EDT Narrative [facility] - 12/14/2023 1:50 PM EDT FASTING:NO FASTING: NO Resulting Agency Comment Performing Organization Information ?Site ID: QPT ?Name: [facility] ?Address: [address] [place] [address], [address] [place] [id number] ?Director: Figueroa Jacques MD Authorizing ProviderResult TypeResult StatusDaeldon SYLVESTER URINE ORDERABLESFinal ResultPerforming OrganizationAddressCity/State/[facility] CodePhone Number [facility] * Color Fundus Photography - OU - Both Eyes (11/18/2022 12:00 PM EST)Anatomical RegionLateralityModalityHeadFundus PhotographySpecimen (Source)Anatomical Location / LateralityCollection Method / VolumeCollection TimeReceived Time 11/18/2022 12:00 PM EST Narrative 11/18/2022 12:00 PM EST PERFORMED AT [facility] LOCATION:[id number] [facility] Procedure Note CONVERSION, GENERIC - 02/02/2023 PERFORMED AT [facility] LOCATION:[id number] [facility] Authorizing ProviderResult TypeResult StatusJack Vogt MDPRISMA HEALTH [facility]CON[facility]ITALTH PHOTOGRAPHY Final Result * Colonoscopy (03/17/2021 12:00 PM EDT)Anatomical RegionLateralityModality EndoscopySpecimen (Source)Anatomical Location / LateralityCollection Method / VolumeCollection TimeReceived Time03/17/2021 12:00 PM EDT Narrative 03/17/2021 12:00 PM EDT PERFORMED AT [facility] LOCATION:[id number] polyp- Procedure Note CONVERSION, GENERIC - 02/01/2023 PERFORMED AT [facility] LOCATION:[id number] polyp- Authorizing ProviderResult TypeResult StatusDanimaricruz Vogt MDENDOSCOPY PROCEDURE ORDERABLESFinal Result from Last 3 Months or Most Recently Relevant to Health Maintenance Additional Health Concerns Active ProblemsNoted DateDiagnosed DatePatient on antidepressant monitoring plan 02/25/2025 Insurance Care Teams Team MemberRelationshipSpecialtyStart DateEnd Jack Vogt MD [address] [place] [address] PCP - GeneralInternal Medicine01/24/23 Chantelle Recio, HIEU [address] [place] [address] Social WorkerFamily Medicine06/10/25 Valerie Go, DEBORA [address] [place] [address] Registered NurseFamily Tcgicelt19/13/25
--- OUTSIDE RECORDS SUMMARY | 2025-07-09 15:45 | XMS_ITS | Clinical Summary ---
Author Organization [facility] Address [address] [place] [address] Phone Care Team Providers Care Shingle Packer Name Role Phone Unavailable Primary Care Provider Unavailabl e Encounters DateTypeDepartmentCare GkamTwjqscztrnx82/22/2025Scanned Document [facility] [address] [place] [address] Scanning, Generic Provider from Last 3 Months Social History Tobacco UseTypesPacks/DayYears UsedDateSmoking Tobacco: Never Assessed CommentsUnknownSex and Gender InformationValueDate RecordedSex Assigned at Not on fileLegal OshFsrfxt73/26/2022 6:07 AM ESTGender IdentityNot on fileSexual OrientationNot on file Plan of Treatment Health MaintenanceDue DateLast DoneCommentsCT Mtzlsfogalwn77/20/1950Colonoscopy 1949Colorectal Cancer Xgykrbhni49/20/1950FIT-DNA (Cologuard)1949FIT 1949Lipid Panel1949 6101Watxmoibcbxui15/20/1950Welcome to Medicare Visit 1949MMR Vaccines (1 of 1 - Standard series)1950Hepatitis C Screening 1967Pneumococcal Vaccine (1 of 2 - PCV)1968DTaP/Tdap/Td Vaccines (1 - Tdap)1971Zoster Vaccines (1 of 2)1999Bone Density Scan2014 RSV High Risk: (Elderly (60+) or Population) (1 - 1-dose 75+ series) 2024Influenza Vaccine (#1)2025OVID-19 Vaccine (1 - 2024- season) 2025HIB VaccinesAged OutNo longer eligible based on patient's age to complete this topicHPV VaccinesAged OutNo longer eligible based on patient's age to complete this topicHepatitis A VaccinesAged OutNo longer eligible based on patient's age to complete this topicHepatitis B VaccinesAged OutNo longer eligible based on patient's age to complete this topicIPV VaccinesAged OutNo longer eligible based on patient's age to complete this topicMeningococcal VaccineAged OutNo longer eligible based on patient's age to complete this topic Rotavirus VaccinesAged OutNo longer eligible based on patient's age to complete this topic Procedures Procedure NamePriorityDate/TimeAssociated DiagnosisCommentsECHOCARDIOGRAM 04/08/2025 from Last 3 Months Results * Echocardiogram (04/08/2025) Narrative 04/08/2025 Ordered by an unspecified provider. Authorizing ProviderResult TypeResult StatusGeneric Provider ScanningCV ECHO PROCEDURESFinal Result from Last 3 Months Insurance
--- OUTSIDE RECORDS SUMMARY | 2025-07-09 15:45 | XMS_ITS | Clinical Summary ---
Author Organization [facility] Address [address], [address] [place] [address] Care Team Providers Care Analysis Specialist Name Role Phone Jack Vogt MD Primary Care Provider [phone] Allergies Active AllergyReactionsCriticalityNoted DateCommentsIodineAnaphylaxisHigh Hives, and anaphylactic reaction YvfqzlGktribdpjlFryqvg91/17/2018 skin irritation and itching with jewelry worn Shellfish Protein-Containing Drug FwnvmqmlZyoojizhismYanl00/17/2018Simvastatin Other (See Comments) Medications MedicationSigDispense QuantityRefillsLast FilledStart DateEnd DateStatus aspirin 81 MG tablet Take 81 mg by mouth dailyActive amLODIPine (NORVASC) 10 MG tablet Take 10 mg by mouth dailyActive zolpidem (AMBIEN) 10 MG tablet Take 10 mg by mouth nightly..02/27/2018Active valsartan (DIOVAN) 320 MG tablet Take 320 mg by mouth ztrbm750Active tiZANidine (ZANAFLEX) 4 MG tablet Take 4 mg by mouth 2 times yvhyv311Active LYRICA 75 MG capsule Take 75 mg by mouth daily..Active pantoprazole (PROTONIX) 40 MG tablet Take 40 mg by mouth vuknu978Active NIFEdipine (PROCARDIA XL) 90 MG extended release tablet Indications:dose recently upped to 120mgTake 120 mg by mouth daily02/26/2018 Active isosorbide mononitrate (IMDUR) 60 MG extended release tablet Take 60 mg by mouth daily03/19/2018Active fenofibrate (TRICOR) 145 MG tablet Take 145 mg by mouth xdlap374Active nitroGLYCERIN (NITROSTAT) 0.4 MG SL tablet Take 0.4 mg by mouth as neededActive hydrochlorothiazide (HYDRODIURIL) 12.5 MG tablet Take 12.5 mg by mouth dailyActive ezetimibe (ZETIA) 10 MG tablet Take 10 mg by mouth dailyActive DULoxetine (CYMBALTA) 60 MG extended release capsule Take 60 mg by mouth dailyActive lidocaine (LMX) 4 % cream Indications:Status post lumbar spinal fusion,Lumbosacral spondylosis without myelopathyApply a half dollar sized amount to intact skin topically up to twice daily as needed for pain 1 Tube Active Active Problems ProblemNoted DateDiagnosed DateSpondylolisthesis of lumbar ooougr7506/04/2018 Cardiovascular stress test xskwotvx88/05/2018Carotid artery dzaqvvqo76/05/2018 Chest pain05/23/2018Coronary bdancgwnufxcfwej60/05/1454Ulesrevcenvfb37/05/2018 Qtrnyxuwzwwqdp82/05/2018Hypertensive eflddraf23/05/6108Jcbdciilyfytdv78/05/2018 Peripheral vascular ngmzxth3405/23/2018Spondylolisthesis of lumbosacral region 05/23/2018 Family History Medical HistoryRelationNameCommentsHigh Blood PressureBrother 1x 1High CholesterolBrother 1x 1OtherBrother 1x 1BPHCancerBrother 2x 1blood cancer / lymphomaHeart AttackFatherat age 40sHeart AttackMotherStrokeMotherHigh Blood PressureSister 1x 1High CholesterolSister 1x 1CancerSister 2x 1ovarian cancer DiabetesSonx 2RelationNameStatusCommentsBrother 1x 1AliveBrother 2x 1Deceased DaughternoneFatherDeceasedMotherDeceasedSister 1x 1AliveSister 2x 1DeceasedSonx 2Alive Social History Tobacco UseTypesPacks/DayYears UsedDateSmoking Tobacco: Every DayCigarettes0.550 Smokeless Tobacco: NeverAlcohol UseStandard Drinks/WeekCommentsNo0 (1 standard drink = 0.6 oz pure alcohol)CommentsNoSex and Gender InformationValue Date RecordedSex Assigned at BirthNot on fileLegal VmcIbymkc13/10/2013 1:14 PM ESTGender IdentityNot on fileSexual OrientationNot on file Last Filed Vital Signs Vital SignReadingTime TakenCommentsBlood Hpikhmxq651/4109 7:23 AM EDT Ldpmc3873 7:23 AM ZLDFwxldqrbkhm43.7 ??C (98 ??F)06/28/2019 10:26 AM EDT Respiratory Wihz869206/06/2018 10:48 PM EDTOxygen Ucxcvmnybi16%06/07/2018 7:23 AM EDTInhaled Oxygen Concentration--Vokkuo43.2 kg (190 lb)06/28/2019 10:26 AM EDT Ghqaze658 cm (5' 3 )06/28/2019 10:26 AM EDTBody Mass Index33.6606/28/2019 10:26 AM EDT Plan of Treatment Not on file Medical Devices ImplantedTypeAreaManufacturerDevice IdentifierShelf Expiration DateModel / Serial / LotGraft Canc Chip 30cc [id number] - [id number] Implanted:Qty: 1 on 06/04/2018 by Per Barber MD at [facility] Bone/Graft/Tissue/Human/SynthN/A: Spine LumbarMUSCULOSKELETAL TRANSPLANT FND-PMM 04/02/[id number] / [id number] / Kit Sealant Surgiflo Hemostatic Matrix - [id number] Implanted:Qty: 1 on 06/04/2018 by Per Barber MD at [facility] Bone/Graft/Tissue/Human/SynthN/A: Spine LumbarJNJ: [employer]PUY ORTH[employer]ICS-PMM 04/17/20202994 / [id number] / Kit Sealant Surgiflo Hemostatic Matrix Implanted:Qty: 1 on 06/04/2018 by Per Barber MD at [facility] Bone/Graft/Tissue/Human/SynthN/A: Spine LumbarJNJ: [employer]PU[employer] ORTH[employer]-PMM 01/15/[id number] / / [id number] Polyaxial Reline-O 2s 6.5x55mm Implanted:Qty: 3 on 06/04/2018 by Per Barber MD at [facility] Screw/Plate/Nail/RodN/A: Spine LumbarNUVASIVE INC-[id number] / / Screw Polyaxial Reline-O 6.5x50mm Implanted:Qty: 1 on 06/04/2018 by Per Barber MD at [facility] Screw/Plate/Nail/RodN/A: Spine LumbarNUVASIVE INC-[id number] / / Wally-Cellular Bone Matrix 10cc - [id number] Implanted:Qty: 1 on 06/04/2018 by Per Barber MD at [facility] SpineN/A: Spine LumbarNUVASIVE INC-PMM01/20/[id number] / [id number] / Screw Lk Reline Opn Tulip 5.5mm Implanted:Qty: 6 on 06/04/2018 by Per Barber MD at [facility] SpineN/A: Spine LumbarNUVASIVE INC-[id number] / / Impl Spine Coroent Mp Lg 37l3t21ez 4deg Implanted:Qty: 2 on 06/04/2018 by Per Barber MD at [facility] SpineN/A: Spine LumbarNUVASIVE [id number] / / Impl Spine Emmanuel Reline-O Lrdtc 5.5x70mm Implanted:Qty: 2 on 06/04/2018 by Per Barber MD at [facility] SpineN/A: Spine LumbarNUVASIVE INC-[id number] / / Reline Reduction Screw Implanted:Qty: 2 on 06/04/2018 by Per Barber MD at [facility] N/A: Spine Lumbar Insurance MemberSubscriberPlan / Payer (Effective 2017-Present)Name:Marleni Herrera Member ID:[id number] Relation to Subscriber:SelfName:Herrera Marleni Subscriber ID:[id number] Payer ID:1 ([facility]) Type:Medicare Address: [facility] [id number] [place] [address] Advance Directives * Full Code (Latest Code Status on File) Date ActivatedDate InactivatedComments06/04/2018 6:16 PM06/07/2018 7:05 PM Care Teams Team MemberRelationshipSpecialtyStart DateEnd Date Jack Vogt MD [address] [place] [address] PCP - GeneralInternal Medicine03/13/18
[2025-07-09 15:54] LABS: Hematocrit 26.8 % (36.0-48.0); Hemoglobin 9.1 g/dL (12.0-16.0); Mean Corpuscular HGB Conc 34.0 g/dL (29.9-35.2); Mean Corpuscular Hemoglobin 29.0 pg (26.7-34.0); Mean Corpuscular Volume 85.4 fL (81.0-99.0); Platelet Count 181 10^3/uL (150-450); Red Blood Count 3.14 10^6/uL (4.20-5.40); White Blood Count 4.3 10^3/uL (4.0-11.0)
[2025-07-09 16:01] LABS: Albumin Level 3.1 g/dL (3.4-5.0); Anion Gap 16.3; Blood Urea Nitrogen 65.0 mg/dL (7.0-18.0); Calcium 6.1 mg/dL (8.5-10.1); Carbon Dioxide 24.9 mmol/L (21.0-32.0); Chloride 103 mmol/L (98-107); Estimated GFR (African America 17 (>=60 mL/min/1.73m^2); Estimated GFR (Non-African Ame 14 (>=60 mL/min/1.73m^2); Glucose 99 mg/dL (74-106); Potassium 3.2 mmol/L (3.5-5.1); Sodium 141 mmol/L (136-145); Uric Acid 8.1 mg/dL (2.6-6.0)
[2025-07-09 16:03] LABS: Iron 40.0 ug/dL (50.0-170.0); Percent Iron Saturation 13.3 %; Total Iron Binding Capacity 301.0 ug/dL (250.0-450.0)
[2025-07-09 16:24] LABS: Ferritin 88.0 ng/mL (8.0-252.0); Folate 4.80 ng/mL (8.60-58.90)
[2025-07-09 16:41] LABS: Magnesium 0.6 mg/dL (1.8-2.4)
[2025-07-11 04:07] LABS: Vitamin B12 437 pg/mL (232-1245)
--- OUTSIDE RECORDS SUMMARY | 2025-08-29 20:00 | XMS_ITS | Clinical Summary ---
Author Organization Unknown Care Team Providers Care Employee Counselor Name Role Phone FRANCHESCA BEAULIEU, ROMARIO Unavailable Unavailable TASHA RN, BRANDON Unavailable Unavailable WILMER BANK ACCOUNTANT, DON Unavailable Unavailable COPJOSI ADÁN, YAW Unavailable Unavailable GOSCHE OT, PROSPER Unavailable Unavailable KOHLENBERG BANK ACCOUNTANT, GABRIELLA Unavailable Unavailabl e POP PT, NICOLLE Unavailable Unavailable VIVIAN MCCAIN, NGOC Unavailable Unavailbettye WAYNE RN, ROQUE Unavailable Unavailbettye ZAZUETA RN, VIKRAM Unavailable Unavailable COY RN, SUSIE Unavailable Unavailable KRISTY BANK ACCOUNTANT, LOUISA Unavailable Unavailable SHAFER BANK ACCOUNTANT, MYA Unavailable Unavailabl e Payers Payer Name Policy Type Policy Number Effective Date Expira tion Date 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 Jqlmpi5185-92-54 00:00:00PRIMARY GENERALIZED (OSTEO)YXAYZLCLZOxgazd2859-31-42 00:00:00ANXIETY DISORDER, RNPDVIVXIFVQfmztx6004-35-15 00:00:00DEPRESSION, LUMANBTDOWKZgjvmy1719-26-15 00:00:00SOLITARY PULMONARY HJSQMEQqiygi2508-82-61 00:00:00RADICULOPATHY, LUMBAR VJGLWPWjfyuk5554-19-30 00:00:00SPINAL STENOSIS, LUMBAR REGION WITH NEUROGENIC OUCVLCGGBVUNRoyfhs8496-34-34 00:00:00 SPONDYLOLISTHESIS, LUMBAR TQPRUILrtimw0622-56-28 00:00:00OLD MYOCARDIAL ASYELTZFIBWqmvpo4774-74-25 00:00:00ACUTE KIDNEY FAILURE, UNSPECIFIEDActive 2025-07-02 00:00:00MIXED FYGIZGAQWGLCFXKoxxey8874-78-59 00:00:00OBESITY, CJZODOBDTBYFvszdx4944-12-15 00:00:00INSOMNIA, FRXRLDFXATNQylklj2391-92-66 00:00:00UNSPECIFIED SEVERE PROTEIN-CALORIE OMWCSZQRNHTDKngyqs6483-08-43 00:00:00 GASTRO-ESOPHAGEAL REFLUX DISEASE WITHOUT LPPPUHTAXBDJstmfi4353-26-98 00:00:00 DDGORECDIVRNTYUmirph5768-81-16 00:00:00OBSTRUCTIVE SLEEP APNEA (ADULT) (PEDIATRIC)Aqxwtz2314-64-94 00:00: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 Ordering Clinician Indication Dosage Frequency Signature (SIG) Comments Components Ambien 5 mg tablet 2025-03-13 00:00:[id number] tabletBEDTIME1 tablet BEDTIME (route: oral)Med Classification: Central Nervous System AgentsAspirin Childrens 81 mg chewable hfvclk3159-20-29 00:00:821596-28-60 23:59:[id number] ANTIPLATELET1 tabletDAILY1 tablet DAILY (route: oral)Med Classification: Hematological AgentsCardura 2 mg wkrjhx7735-94-54 00:00:[id number] HYPERTENSION1 tabletDAILY1 tablet DAILY (route: oral)Med Classification: Cardiovascular Therapy Agentsclonidine HCl 0.1 mg gxjbox4810-73-58 00:00:00Yes [id number] tabletDAILY1 tablet DAILY (route: oral)Med Classification: Cardiovascular Therapy AgentsCoreg 25 mg kktdvt6503-89-75 00:00:[id number] HTN1 tabletEVERY 12 HOURS1 tablet EVERY 12 HOURS (route: oral)Med Classification: Cardiovascular Therapy AgentsEliquis 2.5 mg ojdqfo5624-27-89 00:00:519080-06-71 23:59:[id number] THINNER2 tabletEVERY 12 HOURS2 tablet EVERY 12 HOURS (route: oral)Med Classification: Hematological Agents fenofibrate 160 mg jhiswl9089-89-57 00:00:[id number] tablet DAILY1 tablet DAILY (route: oral)Med Classification: Cardiovascular Therapy Agentshydralazine 100 mg kwmosa4515-68-29 00:00:[id number] tabletEVERY 8 HOURS1 tablet EVERY 8 HOURS (route: oral)Med Classification: Cardiovascular Therapy AgentsLexapro 5 mg mbkaty1365-46-27 00:00:[id number] DEPRESSION1 tabletDAILY1 tablet DAILY (route: oral)Med Classification: Central Nervous System Agentsmelatonin 5 mg dbqcytt3424-16-51 00:00:849720-61-25 23:59:[id number] capsuleBEDTIME1 capsule BEDTIME (route: oral) Med Classification: Central Nervous System AgentsProcardia XL 90 mg tablet,extended oocaogn2316-20-50 00:00:[id number] tabletEVERY 12 HOURS1 tablet EVERY 12 HOURS (route: oral)Med Classification: Cardiovascular Therapy AgentsProtonix 40 mg tablet,delayed laxzqba8018-23-82 00:00:00Yes [id number] tabletDAILY1 tablet DAILY (route: oral)Med Classification: Gastrointestinal Therapy AgentsTums 200 mg (as calcium carbonate 500 mg) chewable sgxjsh7427-01-12 00:00:[id number] STOMACH2 tabletAS NEEDED2 tablet NEEDED (route: oral)Med Classification: Gastrointestinal Therapy AgentsZetia 10 mg ophyuw2462-08-27 00:00:[id number] tablet DAILY1 tablet DAILY (route: oral)Med Classification: Cardiovascular Therapy Agentstramadol 50 mg ffqbqh5091-04-58 00:00:[id number] needed for severe pain50 mg3 TIMES DAILY50 mg 3 TIMES DAILY (route: oral)Med Classification: Analgesic, Anti-inflammatory or Antipyreticondansetron HCl 4 mg bfbivi5414-59-41 00:00:090756-76-90 23:59:[id number] AND/OR VOMITING1 tabletEVERY 8 HOURS1 tablet EVERY 8 HOURS (route: oral)Med Classification: Gastrointestinal Therapy Agentsaspirin 81 mg blallb6210-60-16 00:00:[id number] tablet DAILY1 tablet DAILY (route: oral)Med Classification: Hematological AgentsEliquis 2.5 mg qifgdp4634-83-98 00:00:[id number] THINNER1 tablet2 TIMES DAILY1 tablet 2 TIMES DAILY (route: oral)Med Classification: Hematological Agents isosorbide mononitrate ER 30 mg tablet,extended release 24 gd4491-42-90 00:00:00 [id number] tabletDAILY1 tablet DAILY (route: oral)Med Classification: Cardiovascular Therapy Agentsspironolactone 25 mg bxkvcg7668-93-01 00:00:00Yes [id number] tabletDAILY1 tablet DAILY (route: oral)Med Classification: Cardiovascular Therapy AgentsTylenol PM Extra Strength 25 mg-500 mg tablet 2025-07-02 00:00:[id number] NEEDED FOR SLEEP1 tabletBEDTIME1 tablet BEDTIME (route: oral)Med Classification: Analgesic, Anti-inflammatory or AntipyreticLasix 40 mg xnkvyn3537-03-67 00:00:88Tjl4735125603XYPFR4 tablet2 TIMES DAILY1 tablet 2 TIMES DAILY (route: oral)Med Classification: Cardiovascular Therapy AgentsImodium Multi-Symptom Relief 2 mg-125 mg tablet 2025-07-08 00:00:[id number] BOWEL MOVEMENTSPer instructionsAS NEEDEDPer instructions NEEDED (route: oral)Med Classification: Gastrointestinal Therapy Agents Vital Signs Vital Name Observation Time Observation Value Commen ts Temperature 2025-07-08 13:44:00.000 97.4 [degF] Asycvspzibt0509-39-55 12:51:00.29581 [degF]Uqwxtonvhaw3255-76-21 12:52:00.000 96.2 [degF]Iptwxjxxnat8970-66-84 14:41:00.51758.5 [degF]BMI (%)2025-07-02 14:41:00.19746 kg/k0Hyxmng6879-67-37 14:41:00.74098 [in_us]Ylwsh6106-52-44 13:44:00.34720 /lfwVqcxp1989-56-42 12:51:00.59639 /ojyXrnsx6036-32-75 12:52:00.70677 /elgKfkja7035-12-28 14:41:00.89846 /minO2 Saturation (%) 2025-07-08 13:44:00.82721 %O2 Saturation (%)2025-07-08 12:51:00.27534 %O2 Saturation (%)2025-07-03 12:52:00.76111 %O2 Saturation (%)2025-07-02 14:41:00.37678 %Ylqdjezvpkmk8839-62-40 13:44:00.95531 /fggDyweyfpzibqs8352-17-50 12:51:00.50342 /fyqGtyeuamolpbc9235-97-16 12:52:00.54250 /minRespirations 2025-07-02 14:41:00.04624 /minWeight (lbs)2025-07-02 14:41:00.893229 [lb_av] Systolic Blood Sjeqmssi7507-11-99 13:44:00.995706 mm[Hg]Systolic Blood Pressure 2025-07-08 13:04:00.176014 mm[Hg]Systolic Blood Vnywgzor0426-78-29 12:51:00.000 168 mm[Hg]Systolic Blood Occwrwsc0440-52-34 12:52:00.805035 mm[Hg]Systolic Blood Bhbzuhzy6755-31-80 14:41:00.253883 mm[Hg]Diastolic Blood Hwsxuvxz9224-23-38 13:44:00.19765 mm[Hg]Diastolic Blood Izmbxgja6782-23-71 13:04:00.63441 mm[Hg] Diastolic Blood Prtloqva6524-42-89 12:51:00.84434 mm[Hg]Diastolic Blood Pressure 2025-07-03 12:52:00.18039 mm[Hg]Diastolic Blood Pfhzoqpo4460-17-92 14:41:00.000 64 mm[Hg] Plan of Treatment Planned Activity Planned [...] CHANGE IN CONDITION (SCIC)AND DISCHARGE. HOME HEALTH SEAFOOD CLERK MAY PROVIDE CARE RECOMMENDATIONS NEEDED ON NEW,EXISTING [...] IN CONDITION (SCIC) AND DISCHARGE. HOME HEALTH SEAFOOD CLERK MAY PROVIDE CARE RECOMMENDATIONS NEEDED ON NEW, [...] ON ZONE TOOLS. INSTRUCT ON MITIGATION OF IDENTIFIEDHOSPITAL OR EMERGENCY DEPARTMENT RISK FACTORS. PHYSICAL THERAPIST [...] TO REVIEW MEDICATION PROFILE AND RECONCILE MEDICATIONS NE EDED. PHYSICAL THERAPIST MAY INSTRUCT AND REINFORCE MEDICATION [...] 07/12/25 . PATIENT WILL DEMONSTRATE IMPROVED BED MOBILITYAS EVIDENCED BY ABILITY TO CHANGE POSITION INDEPENDENTLY BY 07/12/25. PATIENT/CAREGIVER WILL DEMONSTRATE SAFE TRANSFERS USING APPROPRIATE BODY MECHANICS AND APPROPRIATE EQUIPMENT BY 07/12/25. PATIENT WILL DEMONSTRATE SAFE GAIT TECHNIQUE WITH RW, NEEDED TO IMPROVE FUNCTIONAL MOBILITY AND MINIMIZERISK OF INJURY BY 07/12/25. PATIENT/CAREGIVER WILL DEMONSTRATE ADEQUATE KNOWLEDGE OF PROVIDING A SAFE HOME SETTING WITHOUT ENVIRONMENTAL HAZARDS BY 07/12/25. INEFFECTIVE ANTICOAGULATION THERAPY, EV IDENCED BY PT/INR OUTSIDE THERAPEUTIC PARAMETERS SET BY [...] MANAGE DEPRESSION BY 07/28/2025 CHANGES IN PATIENT CO-MORBIDSTATUS WILL BE PROMPTLY IDENTIFIED AND REPORTED TO THE PHYSICIAN. PATIENT/CAREGIVER VERBALIZE/DEMONSTRATE ABILITY TO PROPERLY MANAGE PAIN BY07/19/2025 PATIENT WILL DEMONSTRATE COMPLIANCE WITH MEDICATIONS PRESCRIBED. PATIENT/CAREGIVER WILL VERBALIZE/DEMONSTRATE UNDERSTANDING OF MEDICATION SCHEDULE, PURPOSE, SIDE EFFECTS, AND ANY SPECIAL PRECAUTIONS RELATED TO MEDICATION REGIMEN BY07/31/2025 Progress Notes Progress Notes <paragraph>[Visit Date: 2024 by DON GUILLEN PTA]:</paragraph><paragraph>NO CHANGES IN MEDICATIONS OR INSURANCE, NO FALLS TO REPORT. </paragraph><paragraph>PCP FRANCHESCA WAS NOTIFIED VIA PHONE BY JUANITA PARK ~1 HOUR PRIOR TO THIS REGARDING ELEVATED BLOOD PRESSURE. AWAITING RETURN PHONE CALL. CURRENT BLOOD PRESSURE TAKEN MANUALLY PRIOR TO PHYSICAL THERAPY IS 162/62 LEFT ARM. </paragraph><paragraph>PATIENT REPORTS SHE CONTINUES TO HAVE OFF AND ON DIARRHEA AND BILATERAL FOOT PAIN (CURRENTLY 4/10). PATIENT IS DOING WELL WITH ELEVATING LE'S THROUGHOUT THE DAY, BUT REPORTS THE COMPRESSION GARMENTS WERE NOT COMFORTABLE SO SHE HASN'T BEEN USING THEM. </paragraph><paragraph></paragraph><paragraph>TRANSFERS COMPLETED WITH SBA WITH EDUCATION ON SLOW POSITION CHANGES. </paragraph><paragraph>GAIT TRAINING COMPLETED WITH RW AND CGA/SBA INDOORS 60FT + 30FT X 3 WITH SEATED REST BREAKS BETWEEN TRIALS. WALKER HEIGHT ADJUSTED THIS DATE WITH COMFORT REPORTED FOLLOWING ADJUSTMENT. PATIENT DEMONSTRATES NARROW BASE OF SUPPORT WITH INADEQUATE FOOT CLEARANCE, FLEXED POSTURE AND INCONSISTENT RHYTHM. VISUAL AND VERBAL CUES PROVIDED TO PROMOTE UPRIGHT POSTURE, INCREASED STEP HEIGHT AND LENGTH. FAIR CARRYOVER NOTED. PATIENT NOTED TO HAVE 1 LATERAL LOSS OF BALANCE UPON STANDING UP, PATIENT ABLE TO SELF CORRECT WITH STEPPING STRATEGY. </paragraph><paragraph></paragraph><paragraph>SEATED B LE THEREX X 10- 12 COMPLETED--ANKLE PUMPS, LAQ, HIP ABD, MARCHES. </paragraph><paragraph></paragraph><paragraph>STANDING B LE THEREX X 10 COMPLETED--CALF RAISES, MARCHES, HIP ABD, HS CURLS, MINI SQUATS (X5 D/T KNEE PAIN). 1 SEATED REST BREAK DURING AND FOLLOWING COMPLETION D/T MILD FATIGUE. PATIENT COMPLETED THEREX WITH FAIR+ TOLERANCE AND TECHNIQUE WITH SHORT REST BREAKS THROUGHOUT FOR ENERGY CONSERVATION AND OCCASSIONAL CUES FOR OPTIMAL TECHNIQUE. </paragraph><paragraph></paragraph><paragraph>CONTINUE TO PROGRESS B LE THEREX, GAIT, TRANSFERS, BALANCE, ACTIVITY TOLERANCE.</paragraph> <paragraph>[Visit Date: 2024 by NGOC MCCAIN]:</paragraph><paragraph>ROUTINE VISIT COMPLETED THIS DATE WITH PATIENT DEMONSTRATING FATIGUE DURING VISIT. PATIENT REPORTED NO CHANGE IN MEDICATIONS OR INSURANCE AND NO FALLS</paragraph><paragraph></paragraph><paragraph>LB DRESSING - DISTANT SUP TO SCAR/DOFF BRIEF & PANTS.UB DRESS- SBA/SUP TO SCAR/DOFF BRIEF & PANTS.</paragraph><paragraph></paragraph><paragraph>TOILETING TASK - DISTANT SUP WITH TASK INCLUDING DON/DOFF OF LB CLOTHING </paragraph><paragraph></paragraph><paragraph>TRANSFERS- CLOSE SBA WITH BUE ASSIST </paragraph><paragraph></paragraph><paragraph>FUNCTIONAL MOBILITY CLOSE SBA USING FWW WITH NO SAFETY CONCERNS THIS DATE.</paragraph><paragraph></paragraph><paragraph>BUE HEP -7 PLANES X 10 REPS X 1 SET THIS VISIT. PATIENT DEMONSTRATES DECR ROM AND INCREASED PAIN WITH USE OF R SHOULDER FROM PREVIOUS INJURY. THERAPIST PROVIDED MOD VERBAL CUES AND DEMONSTRATION FOR HEP WITH PATIENT DEMONSTRATINNG FAIR RETURN.</paragraph><paragraph></paragraph><paragraph>NEXT VISIT- REVIEW HEP, ENDURANCE, IADL</paragraph> Encounters Start Date/Time End Date/Time Encounter Type Admission Type Attending [facility] Care Department Encounter ID Discharge Date Discharge Status Discharge Condition Discharge Reason Percent Goals Met 2025-07-02 00:00:00 2025-08-30 00:00:00 Outpatient READMISSI ON BRANDON CORDOVA [id number]
--- OUTSIDE RECORDS SUMMARY | 2025-08-29 20:00 | XMS_ITS | Clinical Summary ---
Author Organization Unknown Care Team Providers Care School Curriculum Developer Name Role Phone FRANCHESCA BEAULIEU, ROMARIO Unavailable Unavailable TASHA RN, BRANDON Unavailable Unavailable WILMER CURATOR HERBARIUM, DON Unavailable Unavailable COPJOSI ADÁN, YAW Unavailable Unavailable GOSCHE OT, PROSPER Unavailable Unavailable KOHLENBERG CURATOR HERBARIUM, GABRIELLA Unavailable Unavailabl e POP PT, NICOLLE Unavailable Unavailable VIVIAN MCCAIN, NGOC Unavailable Unavailbettye WAYNE RN, ROQUE Unavailable Unavailbettye ZAZUETA RN, VIKRAM Unavailable Unavailable COY RN, SUISE Unavailable Unavailable KRISTY CURATOR HERBARIUM, LOUISA Unavailable Unavailable SHAFER CURATOR HERBARIUM, MYA Unavailable Unavailabl e Payers Payer Name Policy Type Policy Number Effective Date Expira tion Date [facility] (FFS) [id number] Problems Condition Name Condition Details Condition Category Status Onset Date Resolution Date Last Treatment Date Treating Clinician Comments FIBROMYALGIA Locpgd3930-80-31 00:00:00HYP HRT AND CHR KDNY DIS W HRT FAIL AND STG 1-4/UNSP CHR FFDCIqlrdn1173-69-01 00:00:00CHRONIC DIASTOLIC (CONGESTIVE) HEART FAILURE Jenvil4101-02-41 00:00: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 TTUCMWEKktfhr3306-47-59 00:00:00CHRONIC KIDNEY DISEASE, STAGE 4 (SEVERE)Active 2025-07-02 00:00: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 Bcakjz4196-62-39 00:00:00PRIMARY GENERALIZED (OSTEO)FIIHNBWFRKmbzua8127-80-38 00:00:00ANXIETY DISORDER, FQGFGZIGNXHAzbmhr3415-74-66 00:00:00DEPRESSION, ROLTASTITUFTfmjkg9430-05-87 00:00:00SOLITARY PULMONARY NPZOPTDzibum6520-93-61 00:00:00RADICULOPATHY, LUMBAR JZBSYSBbvfmc8241-89-71 00:00:00SPINAL STENOSIS, LUMBAR REGION WITH NEUROGENIC JPZMFOETLWOIYfsntc9312-77-59 00:00:00 SPONDYLOLISTHESIS, LUMBAR KKYVEZAgzlpr7532-37-37 00:00:00OLD MYOCARDIAL FBJJVGQYYFIsxpng9378-04-98 00:00:00ACUTE KIDNEY FAILURE, UNSPECIFIEDActive 2025-07-02 00:00:00MIXED VOVNKCUPPVIREZRivudq8953-57-09 00:00:00OBESITY, SYACLZEKVWUKpppjc8770-28-87 00:00:00INSOMNIA, LNXDOABKWCUSuekac4950-10-59 00:00:00UNSPECIFIED SEVERE PROTEIN-CALORIE FLGWEQODJYACPgnbzu0453-82-23 00:00:00 GASTRO-ESOPHAGEAL REFLUX DISEASE WITHOUT UMOCUFIFTMOUxibmm1289-89-25 00:00:00 ARXTAMOENNJECZYbhzed1768-86-91 00:00:00OBSTRUCTIVE SLEEP APNEA (ADULT) (PEDIATRIC)Fpzfhh4577-97-09 00:00: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 Ordering Clinician Indication Dosage Frequency Signature (SIG) Comments Components Ambien 5 mg tablet 2025-03-13 00:00:[id number] tabletBEDTIME1 tablet BEDTIME (route: oral)Med Classification: Central Nervous System AgentsAspirin Childrens 81 mg chewable jxotpl9111-96-00 00:00:214348-71-85 23:59:[id number] ANTIPLATELET1 tabletDAILY1 tablet DAILY (route: oral)Med Classification: Hematological AgentsCardura 2 mg ncysne3163-60-39 00:00:[id number] HYPERTENSION1 tabletDAILY1 tablet DAILY (route: oral)Med Classification: Cardiovascular Therapy Agentsclonidine HCl 0.1 mg whgvfq6655-35-20 00:00:00Yes [id number] tabletDAILY1 tablet DAILY (route: oral)Med Classification: Cardiovascular Therapy AgentsCoreg 25 mg txvdzv7875-59-73 00:00:[id number] HTN1 tabletEVERY 12 HOURS1 tablet EVERY 12 HOURS (route: oral)Med Classification: Cardiovascular Therapy AgentsEliquis 2.5 mg aixppo4606-93-95 00:00:934815-33-42 23:59:[id number] THINNER2 tabletEVERY 12 HOURS2 tablet EVERY 12 HOURS (route: oral)Med Classification: Hematological Agents fenofibrate 160 mg wonbzi0386-81-48 00:00:[id number] tablet DAILY1 tablet DAILY (route: oral)Med Classification: Cardiovascular Therapy Agentshydralazine 100 mg oyhlru4670-87-97 00:00:[id number] tabletEVERY 8 HOURS1 tablet EVERY 8 HOURS (route: oral)Med Classification: Cardiovascular Therapy AgentsLexapro 5 mg ealsns9158-28-19 00:00:[id number] DEPRESSION1 tabletDAILY1 tablet DAILY (route: oral)Med Classification: Central Nervous System Agentsmelatonin 5 mg flyuyhx5510-25-98 00:00:873068-04-06 23:59:[id number] capsuleBEDTIME1 capsule BEDTIME (route: oral) Med Classification: Central Nervous System AgentsProcardia XL 90 mg tablet,extended havgvvk3474-22-20 00:00:[id number] tabletEVERY 12 HOURS1 tablet EVERY 12 HOURS (route: oral)Med Classification: Cardiovascular Therapy AgentsProtonix 40 mg tablet,delayed xvxwzvj4732-57-17 00:00:00Yes [id number] tabletDAILY1 tablet DAILY (route: oral)Med Classification: Gastrointestinal Therapy AgentsTums 200 mg (as calcium carbonate 500 mg) chewable qsmpaf9431-04-74 00:00:[id number] STOMACH2 tabletAS NEEDED2 tablet NEEDED (route: oral)Med Classification: Gastrointestinal Therapy AgentsZetia 10 mg jahyek4769-66-60 00:00:[id number] tablet DAILY1 tablet DAILY (route: oral)Med Classification: Cardiovascular Therapy Agentstramadol 50 mg henzfi9643-08-23 00:00:79Thc2625425058of needed for severe pain50 mg3 TIMES DAILY50 mg 3 TIMES DAILY (route: oral)Med Classification: Analgesic, Anti-inflammatory or Antipyreticondansetron HCl 4 mg mtvdin1804-69-29 00:00:640332-44-28 23:59:[id number] AND/OR VOMITING1 tabletEVERY 8 HOURS1 tablet EVERY 8 HOURS (route: oral)Med Classification: Gastrointestinal Therapy Agentsaspirin 81 mg mcgsnw1480-31-02 00:00:[id number] tablet DAILY1 tablet DAILY (route: oral)Med Classification: Hematological AgentsEliquis 2.5 mg llylrz5715-54-75 00:00:[id number] THINNER1 tablet2 TIMES DAILY1 tablet 2 TIMES DAILY (route: oral)Med Classification: Hematological Agents isosorbide mononitrate ER 30 mg tablet,extended release 24 vl9773-12-46 00:00:00 [id number] tabletDAILY1 tablet DAILY (route: oral)Med Classification: Cardiovascular Therapy Agentsspironolactone 25 mg wnetmk3763-75-73 00:00:00Yes [id number] tabletDAILY1 tablet DAILY (route: oral)Med Classification: Cardiovascular Therapy AgentsTylenol PM Extra Strength 25 mg-500 mg tablet 2025-07-02 00:00:[id number] NEEDED FOR SLEEP1 tabletBEDTIME1 tablet BEDTIME (route: oral)Med Classification: Analgesic, Anti-inflammatory or AntipyreticLasix 40 mg uyooei4358-19-69 00:00:[id number] tablet2 TIMES DAILY1 tablet 2 TIMES DAILY (route: oral)Med Classification: Cardiovascular Therapy AgentsImodium Multi-Symptom Relief 2 mg-125 mg tablet 2025-07-08 00:00:[id number] BOWEL MOVEMENTSPer instructionsAS NEEDEDPer instructions NEEDED (route: oral)Med Classification: Gastrointestinal Therapy Agents Vital Signs Vital Name Observation Time Observation Value Commen ts Temperature 2025-07-08 13:44:00.000 97.4 [degF] Rhnyjgrddut2631-10-04 12:51:00.47323 [degF]Zfkraquolef0818-25-74 12:52:00.000 96.2 [degF]Tqqipjxsilj3938-82-68 14:41:00.89898.5 [degF]BMI (%)2025-07-02 14:41:00.26533 kg/r9Dblqny9907-74-98 14:41:00.82766 [in_us]Fkxqu9664-12-91 13:44:00.57336 /knmWhzki2195-60-76 12:51:00.61234 /kwcUovgc4944-08-41 12:52:00.97064 /reySgdkm7309-20-51 14:41:00.48902 /minO2 Saturation (%) 2025-07-08 13:44:00.77708 %O2 Saturation (%)2025-07-08 12:51:00.50271 %O2 Saturation (%)2025-07-03 12:52:00.73710 %O2 Saturation (%)2025-07-02 14:41:00.38231 %Qgpjvjolfrpg6662-09-29 13:44:00.12047 /mxcBftfdazzrdqw8743-64-69 12:51:00.52398 /lvjJfrvpruynply8049-56-23 12:52:00.72604 /minRespirations 2025-07-02 14:41:00.33917 /minWeight (lbs)2025-07-02 14:41:00.104584 [lb_av] Systolic Blood Hazvygjs6751-91-88 13:44:00.326429 mm[Hg]Systolic Blood Pressure 2025-07-08 13:04:00.753781 mm[Hg]Systolic Blood Ytzesztm6254-03-35 12:51:00.000 168 mm[Hg]Systolic Blood Ltntxvjy4343-31-47 12:52:00.174985 mm[Hg]Systolic Blood Dpkwncfn9679-74-47 14:41:00.793700 mm[Hg]Diastolic Blood Bwxtsyze6832-33-45 13:44:00.11217 mm[Hg]Diastolic Blood Uwjalkzh5460-08-00 13:04:00.31725 mm[Hg] Diastolic Blood Cxcrvueg2785-22-81 12:51:00.10662 mm[Hg]Diastolic Blood Pressure 2025-07-03 12:52:00.34461 mm[Hg]Diastolic Blood Omzzcogx8073-47-08 14:41:00.000 64 mm[Hg] Plan of Treatment Planned [...] CHANGE IN CONDITION (SCIC)AND DISCHARGE. HOME HEALTH SURFACING MACHINE OPERATOR MAY PROVIDE CARE RECOMMENDATIONS NEEDED [...] IN CONDITION (SCIC) AND DISCHARGE. HOME HEALTH SURFACING MACHINE OPERATOR MAY PROVIDE CARE RECOMMENDATIONS NEEDED [...] End Date/Time Encounter Type Admission Type Attending [facility] Facility Care Department Encounter ID Discharge Date Discharge Status Discharge Condition Discharge Reason Percent Goals Met 2025-07-02 00:00:00 2025-08-30 00:00:00 Outpatient READMISSI ON BRANDON CORDOVA [id number]
== END 2025-07-09 15:27 | disposition home or self-care (01) ==
LOC: LAB 15:26
PROVIDERS: PCP Internal Medicine; Visit Provider Internal Medicine Nephrology
DX: N18.4 Chronic kidney disease, stage 4 (severe) (principal); R80.9 Proteinuria, unspecified; N17.9 Acute kidney failure, unspecified; D64.9 Anemia, unspecified
CPT/HCPCS: 36415; 80069; 81003; 82306; 82570; 82607; 82728; 82746; 83540; 83550; 83735; 83970; 84156; 84550; 85027

== ENCOUNTER 2025-07-09 19:55 | Emergency (ER) | payer MEDICARE, SELFPAY ==
--- OUTSIDE RECORDS SUMMARY | 2025-06-27 12:00 | XMS_ITS | Encounter Summary ---
Author Organization [facility] Address [address] [place] [address] Care Team Providers Care Learning Consultant Name Role Phone Jack Vogt MD Primary Care Provider Chantelle Recio Unavailable [phone] Reason for Visit * AckksmMabmuxdjZ5O for home health Encounter Details DateTypeDepartmentCare Team (Latest Contact Info)Odzborggtlw52/10/2025 12:00 PM EDTOffice Visit [facility] [address] [place] [address] 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, SALT OPERATOR [address] [place] [address] Chronic kidney disease, stage 4 (severe) (HCC) (Primary Dx); Chronic diastolic congestive heart failure (HCC); Atherosclerosis of zuni coronary artery of zuni heart with stable angina pectoris; Benign essential hypertension; Degenerative lumbar spinal stenosis; Radiculopathy of lumbar region; Spinal stenosis, lumbar region with neurogenic claudication; Spondylolisthesis of lumbar region; Need for home health care; Routine lab draw; Advanced care planning/counseling discussion Social History Tobacco UseTypesPacks/DayYears UsedDateSmoking Tobacco: NeverSmokeless Tobacco: NeverAlcohol UseStandard Drinks/WeekCommentsDefer0 (1 standard drink = 0.6 oz pure alcohol)caffeine yes type:coffeePHQ-2AnswerDate RecordedPatient Health Questionnaire-2 Eaaqp153CommentsUnknownSex and Gender InformationValueDate RecordedSex Assigned at BirthNot on fileLegal SexFemale 11/30/2022 6:57 PM EDTGender IdentityNot on fileSexual OrientationNot on file documented as of this encounter Last Filed Vital Signs Vital SignReadingTime TakenCommentsBlood Fkivkcfy860/6006/27/2025 1:28 PM EDT Szngo114206/27/2025 1:28 PM WYETfmzvxjjatn74.4 ??C (97.5 ??F)06/27/2025 1:28 PM EDTRespiratory Rate--Oxygen Hrrqdrhdeo57%06/27/2025 1:28 PM EDTInhaled Oxygen Concentration--Weight--Height--Body Mass Index--documented [...] is being seen for a f2f for [facility]. Patient reports that she had not seen nephrology since prior to her 03/2025 hospitalization, but hasan appt with them on 07/15/25. She also has a cardiology visit scheduled for 07/04/25. She admits that she has not been checking her blood pressure. She does have family check in on her frequently and her zehberlv-zs-ids is filling her pill boxes for her. [...] ormaking simple things such as scrambled eggs, thai toast, etc. Pt has lost considerable weight [...] would be sent. Also discussed referral to air cargo ground crew supervisor. She states she will wait until after her nephrology appt. 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 Denies any recent falls. Primary activity is sitting on the couch, however, she does have a foot pedal renewals manager she says she uses once/day. She also [...] up scheduled for 07/04/25 3. Atherosclerosis of zuni coronary artery of zuni heart with stable angina pectoris This is [...] confined to the home and needs intermittent fci care physical therapy occupational therapy. I have initiated the establishment of the plan of care. The patient will be followed by a physician, Dr. Vogt, who will periodically review the plan of care. The findings from this cgxz-uj-omum encounter have been communicated with the patient's [...] this encounter Procedures Procedure NamePriorityDate/TimeAssociated DiagnosisCommentsCOMPREHENSIVE METABOLIC BHYOOXdgksef78/10/2025 3:03 PM EDT Chronic kidney disease, stage [...] test. BUN72(H)7 - 25 mg/dLQUESTCreatinine3.66(H)0.60 - 1.00 mg/tPCEXXGKCFN10(L)> OR = 60 mL/min/1.59c8CWBDVVVW/CREATININE ERVNM464 - 22 (calc)PSTCCCzythk700641 - 146 mmol/LQUESTPotassium, Bld3.3(L)3.5 - 5.3 mmol/UNVSHQNapbwjpe94315 - 110 mmol/L QUESTCarbon Xgrjkir9383 - 32 mmol/LQUESTCalcium6.6(L)8.6 - 10.4 mg/dLQUEST PROTEIN, TOTAL6.0(L)6.1 - 8.1 g/dLQUESTALBUMIN3.73.6 - 5.1 g/dLQUESTGLOBULIN2.3 1.9 - 3.7 g/dL (calc)QUESTALBUMIN/GLOBULIN RATIO1.61.0 - 2.5 (calc)QUEST BILIRUBIN, TOTAL0.70.2 - 1.2 mg/dLQUESTALKALINE UYRFMQRFYGN52(L)37 - 153 U/L QWUTDZQC9438 - 35 U/IXFESLVRC52 - 29 U/LQUESTSpecimen (Source)Anatomical Location / LateralityCollection Method / VolumeCollection TimeReceived TimeBlood Venous blood specimen / Ohahcam7706/27/2025 3:03 PM EDT1 3:04 PM EDT Narrative Resulting Agency Comment Performing Organization Information ?Site ID: QPT ?Name: [employer] [facility] ?Address: [address] [place] [id number] ?Director: Figueroa Jacques MD Authorizing ProviderResult TypeResult StatusDejose HERNANDEZ BLOOD ORDERABLESFinal ResultPerforming OrganizationAddressCity/State/ZIP CodePhone Number QUEST documented in this encounter Visit Diagnoses Diagnosis Chronic kidney disease, stage 4 (severe) (HCC)- Primary Chronic diastolic congestive heart failure (HCC) Atherosclerosis of zuni coronary artery of zuni heart with stable angina pectoris Benign essential [...] MemberRelationshipSpecialtyStart DateEnd Date Jack Vogt MD [address] [facility] [address] [place] [address] PCP - GeneralInternal Medicine01/24/23 Chantelle Recio, HIEU [address] [place] [address] Social WorkerFamily Medicine06/10/25documented as of this encounter
--- OUTSIDE RECORDS SUMMARY | 2025-07-09 20:13 | XMS_ITS | Encounter Summary ---
Author Organization [facility] Address [address] [place] [address] Care Team Providers Care Product Inspection Supervisor Name Role Phone Jack Vogt MD Primary Care Provider [phone] Chantelle Recio ENVIRONMENTAL HEALTH MANAGER Unavailable [phone] Valreie Go RN Unavailable [phone] Encounter Details DateTypeDepartmentCare Team (Latest Contact Info)Ycolozmlasu02/22/2025Patient Outreach [facility] [address] [place] [address] Valerie Go, DEBORA [address] [place] [address] Social History Tobacco UseTypesPacks/DayYears UsedDateSmoking Tobacco: FormerCigarettes Smokeless Tobacco: Never Tobacco Cessation:Counseling Given: Not Answered Alcohol UseStandard Drinks/WeekCommentsDefer0 (1 standard drink = 0.6 oz pure alcohol)caffeine yes type:coffeePHQ-2AnswerDate RecordedPatient Health Questionnaire-2 Nvqzb230CommentsUnknownSex and Gender InformationValueDate RecordedSex Assigned at BirthNot [...] Pt states she has an appt with [facility] but was in the hospital. Cardiology appt [...] MemberRelationshipSpecialtyStart DateEnd Date Jack Vogt MD [address] [facility] [address] [place] [address] PCP - GeneralInternal Medicine01/24/23 Chantelle Recio LSW [address] [place] [address] Social WorkerFamily Medicine06/10/25 Valerie Go, RN [address] [facility] [address] [place] [id number] Registered NurseFamily Dgjfckcb00/13/25documented as of this encounter
--- OUTSIDE RECORDS SUMMARY | 2025-07-09 20:13 | XMS_ITS | CCD ---
Author Organization [facility] Care Team Providers Care Public Policy Coordinator Name Role Phone DESIRAE, SHAKA H. Unavailable [...] JACK VOGT Primary Care Unavailable DR HENRY WALL V Consulting Unavailable ZHOU, JOHN Consulting Unavailable JOHN LTUHER Attending Unavailable CHANDAN LUTHERA Admitting Unavailable JOHN [...] CARLYN Consulting Unavailable CARDENAS, ALFREDO Consulting Unavailable VOGT, DR DOSS Primary Care Unavailable CARDENAS, ALFREDO [...] Consulting Unavailable THOMAS Vogt Primary Care Provider [phone] MD Kevin Hamilton II Attending Provider Self, Referral Attending Provider Unavailable Sin BEAULIEU, Jack Boudreaux Primary Care Provider Maria Luisa Thomson Attending Unavailable CARDENAS, Alfredo R Attending Unavailable CARDENAS, Alfredo R Attending Unavailable Orzech, Maria Luisa X Attending Unavailable CARDENAS, Alfredo R Attending Unavailable CURT, ERICKSON T Referring Unavailable CURT, ERICKSON T Referring Unavailable BARBY KAMARA Referring Unavailable HORANIVIOLETAR Admitting Unavailable CURT, ERICKSON T Attending Unavailable CURT, ERICKSON T Referring Unavailable CURT, ERICKSON T Referring Unavailable CURT, ERICKSON T Referring Unavailable CARA SANCHEZ Attending Unavailable SACHIN AGUILERA Attending Unavailable CURT, ERICKSON T Referring Unavailable Jack Vogt II Primary Care Provider Sukumar BEAULIEU, Elsy Attending Provider Carolina TELLO, Sohail Willson Emergency Provider [phone] Rajiv Trejo MD Admit Provider [phone] Rajiv Trejo MD Attending Provider Nick Antonio MD Other Provider Kana Vazquez MD Other Provider Judy Espinsoa MD Other Provider Estrella Velásquez MD Other Provider Andrew Arrington MD Attending Provider Andrew Arrington MD Other Provider Estefania Yoder APRN Other Provider Keith Koehler DO Other Provider [phone] Pilo Harry MD Other Provider Tony Monterroso Attending Unavailable JayyaldairRajiv Admitting Unavailable Kana Vazquez Consulting Unavailable Jack Vogt Primary Care Unavailable Judy Espinosa Consulting Unavailable Estrella Velásquez Consulting Unavailable Andrew Arrington Consulting Unavailable Estefania Yoder Consulting Unavailable Keith Koehler Jr Consulting UnavailPilo Stephens Consulting Unavaila JACK Stephenson Attending Unavailable JACK VOGT Attending Unavailable RENETTA MONCADA Attending Unavailable JACK VOGT Attending Unavailable JACK VOGT Attending Unavailable Chantelle Shah Unavailable Donavan CAZARES, Valerie Unavailable [phone] Allergies Allergy ClassificationReported Allergen(s)Allergy TypeDate of OnsetReaction(s) FacilityIodine (and Iodine containting drugs) (2 sources)Iodine; Translations: [Iodine]Drug Jtdomhv11-81-2017Memgynpn of skin (disorder)[facility] RehabilitationPneum[facility] vaccine (1 source)Pneumococcal vaccineDrug Qpnqwoh73-82-5396HeytwVvijhxkwoPomerene Hospitalhellfish (1 source)Shellfish; Translations: [shellfish]Food AllergyUnknown (qualifier value)[facility] (1 source)vareniclineDrug Lfkwiqh15-13-5380WbkntjmbJtsvctwviSelect [facility] (20 sources)Iodine; Translations: [Iodine]Drug Xxxwwia05-98-4253Dydkfrvz of skin (disorder)[facility] (5 sources)Pneumococcal vaccine; Translations: [pneumococcal vaccine]Drug Lbjizgr03-24-2324RrzvrTazgpijjdLakeHealth [facility]wood [facility] (20 sources)varenicline; Translations: [VARENICLINE]Drug Tnddqwp35-87-7249 [facility] (6 sources)Wkhcyvn-ASZ-PuC Reductase Inhibitor; Translations: [Gbbiatk-TXK-AaH Reductase Inhibitor]Allergy to eotwecgoe16-01-8518Bqmuwxc ReactionChildren'S Hospital For Rehabilitation (20 sources)HMG-CoA reductase inhibitor; Translations: [statins]Drug allergy 60-63-0414Pfcebuy (qualifier value), UnknownExec[facility] (6 sources)Shellfish; Translations: [shellfish]Drug allergyUnknown (qualifier value)[facility] (2 sources)black walnut pollen extract; Translations: [KINSYKF-ADU-RIS REDUCTASE INHIBITORS]Drug Ncpevhv60-41-6927HowClermont [facility] (1 source)vareniclineDrug Lgqpgwz61-26-8279OyjClermont County Hospital Repository (1 source)Pneumovax 23Drug allergy (disorder)88-91-7162QnpClermont County Hospital [facility]ository (20 sources)atorvastatinDrug Cmdpkoo18-43-5815[facility] (20 sources)LovastatinAllergy to rxhicfjuu78-64-4964VS[facility] (20 sources)PravastatinDrug Lhmuzzi45-27-6959SE[facility] (20 sources)SimvastatinAllergy to ubvguppwa37-81-7619XHBE [facility] (20 sources)Pneumococcal Vac PolyvalentDrug Gaqqlwk10-94-8670W[facility] (20 sources)nickel sulfate; Translations: [NICKEL]Drug Umfdftu33-87-2778 [facility]atitisGAR[facility] (20 sources)ShellfishPropensity to adverse ndtqhwrgi01-72-1533NmqpzcmlhtqWIRW Healthcare (20 sources)OtherAllergy to swqinbdgx56-41-9062[facility] (1 source)Contrast media; Translations: [RED DYE]Propensity to adverse reactions to drug (disorder)61-80-7879KtcfkoknzeSelect Medical [facility] (1 source)Pneumococcal vaccine; Translations: [PNEUMOCOCCAL 23-CRUZ PS VACCINE] Drug Ggtrdsw66-91-1646HhelwxsnenSelect Medical [facility]ty [facility] [place] [facility] (1 source)Shellfish; Translations: [SHELLFISH DERIVED]Propensity to adverse reactions to drug (disorder)48-15-0271YwnpesuemwSelect Medical [facility]ty [facility] [place] [facility] Medications Current Medications MedicationDrug Class(es)DatesSig (Normalized)Sig (Original)acetaminophen 325 mg / HYDROcodone bitartrate 5 mg oral tablet (11 sources)Opioid AgonistStart: 12-12-2024 End: 90-53-4022fchz 1 tablet by mouth every six hours for painHYDROcodone- acetaminophen ([place]) 5-325 MG tablet Indications: Spinal stenosis, lumbar region with neurogenic claudication Take 1 tablet by mouth every 6 (six) hours if needed for severe pain 60 tablet 12/12/2024 01/11/2025 ActiveStart: 95-46-1026hputyqppjizob-hydrocodone 325 mg-5 mg oral tablet Refill(s) 0 Start Date: 09/26/22 Status: OrderedStart: 03-24-2021 End: 23-63-8105dqly 1 tablet by mouth every six hours as needed for pain Hydrocodone-Acetaminophen 5-325 mg tablet Discontinued 1 TAB PO Q6H as needed for Pain March 24, 2021 12:00am March 27, 2021 11:36amalendronic acid 70 mg oral tablet (1 source)BisphosphonateStart: 72-83-7646jacdszsvfuw 70 mg Tab Refills(s) 0 Start Date: 09/26/22 Status: Orderedapixaban 2.5 mg oral tablet (20 sources)Factor Xa InhibitorStart: 35-55-8604etbi 1 tablet by mouth in the morningapixaban (Eliquis) 2.5 MG tablet Indications: Personal history of other venous thrombosis and embolism Take 1 tablet (2.5 mg) by mouth in the morning and 1 tablet (2.5 mg) before bedtime. 200 tablet 3 01/27/2025 ActiveStart: 66-44-2608afcz 1 tablet by mouth twice dailyapixaban (Eliquis) 2.5 MG tablet Indications: Personal history of other venous thrombosis and embolism TAKE 1 TABLET BY MOUTH TWICE A DAY 180 tablet 1 12/27/2024 ActiveStart: 30-18-2742kelc 1 tablet by mouth twice dailyapixaban (Eliquis) 2.5 MG tablet Indications: Personal history of other venous thrombosis and embolism TAKE 1 TABLET BY MOUTH TWICE A DAY 180 tablet 1 05/13/2024 ActiveStart: 49-47-3838lfgk 2.5 mg by mouth twice dailyStart: 52-15-5305iwff 1 tablet by mouth twice dailyApixaban (Eliquis) 5 mg tablet Active 5 MG PO Twice daily March 24, 2021 12:00am On Hold: Resume on 03/31/21. Complies with drug therapyaspirin 81 mg delayed release oral tablet (20 sources)Platelet Aggregation Inhibitor, Nonsteroidal Anti-inflammatory Drug Start: 89-14-7093tdnj 1 mg by mouth once dailyaspirin 81 mg Oral EC Tab mg tab(s), Oral, Daily, Refills(s) 0 Start Date: 03/04/22 Status: OrderedStart: 84-53-9230ybom 1 tablet by mouth once daily End: 56-50-3787oypw 1 tablet by mouth once dailyaspirin 81 MG chewable tablet take 1 by Oral route every day Oral 02/25/2025 Discontinued (Other)buPROPion hydrochloride 75 mg oral tablet (7 sources)AminoketoneStart: 02-25-2025 End: 70-54-0146vacq 1 tablet by mouth at bedtimebuPROPion (Wellbutrin) [...] 180 tablet 3 03/25/2025 ActiveStart: 02-22-2024 End: 58-57-1836exjq 1 tablet by mouth in the morningcarvedilol (Coreg) 25 MG tablet Indications: Benign essential hypertension (CMS/HCC) TAKE 1 TABLET BY MOUTH IN THE MORNING AND 1 TABLET IN THE EVENING. TAKE WITH MEALS. 180 tablet 3 10/22/2024 02/25/2025 Discontinued (Other)Start: 17-67-6438wvwtnrugse 12.5 mg Tab Refills(s) 0 Start Date: 10/23/23 Status: OrderedcloNIDine hydrochloride 0.1 mg oral tablet (20 sources)Central alpha-2 Adrenergic AgonistStart: 03-20-2025 End: 63-37-6732mbpi 1 tablet by mouth in the morning, then take 1 tablet by mouth in the evening, then take 1 tablet by mouth at bedtimecloNIDine (Catapres) 0.1 MG tablet Indications: Benign essential hypertension Take 1 tablet (0.1 mg) by mouth in the morning and 1 tablet (0.1 mg) in the evening and 1 tablet (0.1 mg) before bedtime.270 tablet 3 03/31/2025 ActiveStart: 02-22-2024 End: 02-13-2863cwds 1 tablet by mouth in the morningcloNIDine (Catapres) 0.1 MG tablet Indications: Benign essential hypertension (CMS/HCC) Take 1 tablet (0.1 mg) by mouth in the morning and 1 tablet (0.1 mg) before bedtime. 60 tablet 11 02/22/2024 12/12/2024 Discontinueddoxazosin 2 mg oral tablet (16 sources)alpha-Adrenergic BlockerStart: 03-21-2025 End: 23-55-2459gkzl 1 tablet by mouth in the morningdoxazosin (Cardura) 2 MG tablet Indications: Atherosclerosis of [place] coronary artery of [place] heart with stable angina pectoris TAKE 1 TABLET (2 MG) BY MOUTH IN THE MORNING 90 tablet 1 06/23/2025 10/21/2025 ActiveDULoxetine 30 mg Cap-EC (5 sources)Start: 86-15-5708LYSrfzflcw 30 mg Cap-EC Refills(s) 0 Start Date: 03/04/22 Status: OrderedDULoxetine 60 mg Cap-EC (5 sources)Start: 20-22-0873IGZfqurwta 60 mg Cap-EC Refills(s) 0 Start Date: 03/04/22 Status: Orderedescitalopram 5 mg oral tablet (16 sources)Serotonin Reuptake InhibitorStart: 03-21-2025 End: 34-33-6887ggws 1 tablet by mouth once daily in the morningescitalopram (Lexapro) 5 MG tablet Indications: Depressive disorder TAKE 1 TABLET BY MOUTH EVERY DAY IN THE MORNING 90 tablet 1 06/23/2025 Activeezetimibe 10 mg oral tablet (20 sources)Dietary Cholesterol Absorption InhibitorStart: 91-92-7301erfw 1 tablet by mouth once dailyezetimibe (Zetia) 10 MG tablet Indications: Stage 3b chronic kidney disease (CMS-HCC) TAKE 1 TABLETBY MOUTH EVERY DAY 90 tablet 3 12/27/2024 Activefenofibrate 145 mg oral tablet (20 sources)Peroxisome Proliferator Receptor alpha AgonistStart: 42-38-4786uohg 1 tablet by mouth once dailyfenofibrate (Tricor) 145 MG tablet Indications: Mixed hyperlipidemia TAKE 1 TABLET BY MOUTH EVERY DAY 90 tablet 4 10/23/2024 Activefurosemide 40 mg oral tablet (15 sources)Loop DiureticStart: 49-67-0646xeks 1 tablet by mouth in the morning furosemide (Lasix) 40 MG tablet Take 40 mg by mouth in the morning and 40 mg before bedtime. 04/11/2025 ActiveStart: 03-24-2021 End: 08-03-3054sdoh 1 tablet by mouth once daily as neededFurosemide 40 mg tablet Discontinued 40 MG PO Daily as needed for swelling March 24, 2021 12:00am April 08, 2025 4:13pmhydrALAZINE hydrochloride 100 mg oral tablet (20 sources)Arteriolar VasodilatorStart: 03-31-2025 End: 79-47-8941ysqi 1 tablet by mouth in the morning, [...] 11 03/31/2025 03/31/2026 Active Start: 02-22-2024 End: 24-36-6796hycg 1 tablet by mouth in the morning, then take 1 tablet by mouth in the evening, then take 1 tablet by mouth at bedtimehydrALAZINE (Apresoline) 100 MG tablet Indications: Benign essential hypertension Take 1 tablet (100 mg) by mouth in the morning and 1 tablet (100 mg) in the evening and 1 tablet (100 mg) before bedtime. 90 tablet 11 02/22/2024 ActiveStart: 68-38-7733phhlGXYAIJU 25 mg Tab Refills(s) 0 Start Date: 03/04/22 Status: Ordered 24 hr isosorbide mononitrate 30 mg extended release oral tablet (20 sources)Nitrate VasodilatorStart: 04-04-2025 End: 04-01-4292pkuk 1 tablet by mouth once daily, then take 1 tablet by mouth every twenty-four hoursisosorbide mononitrate ER (Imdur) 30 MG 24 hr tablet Take 30 mg by mouth Daily 04/04/2025 04/04/2026 ActiveStart: 03-24-2021 End: 92-50-6912lyno 1 tablet by mouth once daily, then take 1 tablet by mouth every twenty-four hoursIsosorbide Mononitrate 60 mg tablet extended release 24 hr Discontinued 60 MG PO Daily March 24, 2021 12:00am April 08, 2025 4:14pm melatonin 3 mg oral tablet (8 sources)Start: 03-20-2025 End: 81-23-8041dmag 2 tablets by mouth once daily at bedtimeMetoprolol (11 sources)beta-Adrenergic BlockerStart: 65-80-9808Poywnwfjer tartrate 50 mg Tab Refills(s) 0 Start Date: 03/04/22 Status: OrderedStart: 03-24-2021 End: 92-09-6675vlfk 1 tablet by mouth twice dailyMetoprolol Tartrate 50 mg tablet Discontinued 50 MG PO Twice daily March 24, 2021 12:00am April 08, 2025 4:14pmminoxidil 2.5 mg oral tablet (1 source)Arteriolar VasodilatorStart: 62-83-2580zzbq 1 tablet by mouth twice daily24 hr mirabegron 50 mg extended release oral tablet (1 source)beta3-Adrenergic AgonistStart: 77-51-2290pdgx 1 tablet by mouth once dailymirabegron 50 mg oral tablet, extended release 50 mg = 1 tab(s), Oral, Daily, # 30 tab(s), Refills(s) 11, Pharmacy: [facility]/pharmacy #[id number], 163, cm, 11/18/24 13:38:00 EST, Height/Length Dosing, 74.1, kg,11/18/24 13:38:00 EST, Weight Dosing Start Date: 11/18/24 Status: OrderedNIFEdipine 90 mg osmotic 24 hr extended release oral tablet (20 sources)Dihydropyridine Calcium Channel BlockerStart: 08-31-0556vpnv 1 tablet by mouth twice dailyStart: 42-47-1538tlrn 1 tablet by mouth every twenty- four hours in the morningNIFEdipine XL (Procardia XL) 90 MG 24 hr tablet Indications: Atherosclerosis of [place] coronary artery of [place] heart with stable angina pectoris Take 1 tablet (90 mg) by mouth in the morning and 1 t ablet (90 mg) before bedtime. 180 tablet 3 03/31/2025 ActiveStart: 03-20-2025 take 1 tablet by mouth every twenty-four hours in the morningNIFEdipine XL (Procardia XL) 90 MG 24 hr tablet Take 90 mg by mouth in the morning and 90 mg beforebedtime. 03/20/2025 ActiveStart: 55-67-4470WSBKfqdnwc (Eqv-Procardia XL) 90 mg oral tablet, extended release Refills(s) 0 Start Date: 03/04/22 Status: OrderedStart: 03-24-2021 End: 90-86-6875hhzp 1 tablet by mouth once dailyNifedipine 90 mg tablet extended release 24hr Discontinued 90 MG PO Daily March 24, 2021 12:00am April 08, 2025 4:19pmnitroglycerin 0.4 mg sublingual tablet (20 sources)Nitrate VasodilatorStart: 03-20-2024 End: 27-05-7287nvobgehmzyecw (Nitrostat) 0.4 MG SL tablet Indications: Atherosclerosis of [place] coronary artery of [place] heart with stable angina pectoris Place 1 tablet (0.4 mg) under the tongue every 5 (five) minutes if needed for chest pain 90 tablet 12 03/20/2024 ActiveStart: 03-04-2022 nitroglycerin 0.4 mg SubL [place] mg spray(s), SubLingual, q5min, Refills(s) 0 Start Date: 03/04/22 Status: Jujrgdw65 hr oxybutynin chloride 10 mg extended release oral tablet (9 sources)Cholinergic Muscarinic AntagonistStart: 10-23-2023 End: 37-57-6430vgpk 1 tablet by mouth once dailyoxybutynin 10 mg ER Tab 10 mg = 1 tab(s), Oral, Daily, # 90 tab(s), Refills(s) 3, Pharmacy: [facility]/pharmacy #[id number], 163, cm, 10/23/23 12:33:00 EST, Height/Length Dosing, 81.5, kg, 10/23/23 12:33:00 EST, Weight Dosing Start Date: 10/23/23 Status: Orderedpantoprazole 40 mg delayed release oral tablet (20 sources)Proton Pump InhibitorStart: 48-40-5444Upvbs: 03-24-2021 End: 34-95-5971byjr 1 tablet by mouth once dailypantoprazole (ProtoNix) 40 MG EC tablet Indications: Gastroesophageal reflux disease, unspecified whether esophagitis present Take 1 tablet (40 mg) by mouth Daily 90 tablet 3 03/25/2025 Activemicroencapsulated potassium chloride 10 meq extended release oral tablet (2 sources)Start: 06-09-2025 End: 45-71-8139qkyg 1 tablet by mouth in the morningpotassium chloride CR (Klor- Con M10) 10 MEQ ER tablet Indications: Hypokalemia Take 1 tablet (10 mEq) by mouth in the morning and 1 tablet (10 mEq) before bedtime. Do all this for 7 days. Do not crush or chew. 14 tablet 06/09/2025 06/16/2025 Activesennosides, longterm 8.6 mg oral tablet (8 sources)Start: 03-20-2025 End: 48-14-2219gzhn 1 tablet by mouth once daily at bedtimetraMADol hydrochloride 50 mg oral tablet (12 sources)Opioid AgonistStart: 03-24-2025 End: 76-29-3587gjve 1 tablet by mouth every eight hours for paintraMADol (Ultram) 50 MG tablet Indications: Primary osteoarthritis of both knees Take 1 tablet (50 mg) by mouth every 8 (eight) hours if needed for severe pain 60 tablet 2 03/24/2025 Activezolpidem tartrate 10 mg oral tablet (20 sources)gamma-Aminobutyric Acid-ergic AgonistStart: 04-08-2025 End: 44-73-1472nish 5 mg by mouth at bedtime as neededStart: 03-24-2025 End: 33-04-0595mbqvfmuc (Ambien) 5 MG tablet Indications: Insomnia due to medical condition Take 1 tablet (5 mg) by mouth as needed at bedtime for sleep 30 tablet 5 03/24/2025 09/20/2025 ActiveStart: 03-24-2025 End: 35-35-4474wdipobxz (Ambien) 10 MG tablet Indications: Insomnia due to medical condition Take 0.5 tablets (5 mg) by mouth as needed at bedtime for sleep 30 tablet 5 03/24/2025 03/24/2025 Discontinued (Reorder)Start: 03-24-2021 End: 94-25-3675sjjy 1 tablet by mouth at bedtimeZolpidem 10 mg tablet Discontinued 10 MG PO Bedtime March 24, 2021 12:00am April 08, 2025 4:19pm Completed/Discontinued Medications MedicationDrug Class(es)DatesSig (Normalized)Sig (Original)diclofenac sodium 0.01 mg/mg topical gel (7 sources)Nonsteroidal Anti-inflammatory DrugStart: 11-23-2023 End: 84-06-0333Udbkizdims Sodium 1 % gel Discontinued 2 GM TOPICAL as directed as needed for knee pain 10 17March 11, 2024 7:39am April 08, 2025 4:11pmStart: 29-75-0778Jdoqrfqdqu Sodium Active 2 GM TOPICAL as directed 10 17November 23, 2023 1:00amDULoxetine 30 mg delayed release oral capsule (20 sources)Serotonin and Norepinephrine Reuptake InhibitorStart: 12-27-2024 End: 53-13-9244ceew 1 capsule by mouth once dailyDULoxetine (Cymbalta) [address] capsule Indications: Depressive disorder Take 1 capsule (30 mg) by mouth Daily Take with 60 mg capsule 90 capsule 4 01/02/2025 03/24/2025 DiscontinuedStart: 12-27-2024 End: 80-92-3703uvtv 1 capsule by mouth once dailyDULoxetine (Cymbalta) [address] capsule Indications: Anxiety Take 1 capsule (60 mg) by mouth Daily 90 capsule 01/02/2025 03/24/2025 DiscontinuedStart: 22-77-7330hgpz 1 capsule by mouth once dailyDULoxetine (Cymbalta) [address] capsule Indications: Depressive disorder (CMS/HCC) Take 1 capsule (30 mg) by mouth Daily Take with 60 mg capsule 100 capsule 3 12/30/2023 ActiveStart: 10-30-2023 End: 73-04-2939twej 1 capsule by mouth once dailyDULoxetine (Cymbalta) [address] capsule Indications: Anxiety Take 1 capsule (60 mg) by mouth Daily 90 capsule 11/04/2024 ActiveStart: 06-43-1140ADTjgrlhne 30 mg Cap-EC Refills(s) 0 Start Date: 03/04/22 Status: OrderedStart: 79-28-2230ZZLmkwnvcl 60 mg Cap-EC Refills(s) 0 Start Date: 03/04/22 Status: OrderedStart: 03-24-2021 End: 19-64-8121xsll 3 capsules by mouth at bedtimeDuloxetine 30 mg capsule,delayed release(DR/EC) Discontinued 90 MG PO Bedtime March 24, 2021 12:00am April 08, 2025 4:12pmStart: 13-47-0056tfls 90 mg by mouth at bedtime Duloxetine Active 90 MG PO Bedtime March 24, 2021 10:33pm12 hr guaiFENesin 600 mg extended release oral tablet (5 sources)Start: 03-27-2021 End: 51-51-7765qwnp 2 tablets by mouth twice daily as needed for congestion, then take 1 tablet by mouth every twelve hours as needed for congestion Guaifenesin (Mucinex) 600 mg Tablet Extended Release 12hr Discontinued 1200 MG PO Twice daily as needed for congestion 0 March 27, 2021 12:00am November 23, 2023 3:26pmmeloxicam 15 mg oral tablet (20 sources)Nonsteroidal Anti-inflammatory DrugStart: 06-10-2024 End: 82-23-9831wqvu 1 tablet by mouth once dailyMeloxicam 15 mg tablet Discontinued 0 .ROUTE .COMPLEX June 10, 2024 7:33am April 08, 2025 4:14pm TAKE 1 TABLET BY MOUTH EVERY DAYStart: 11-23-2023 End: 15-89-1930ovhy 1 tablet by mouth once dailyMeloxicam 15 mg tablet Discontinued 15 MG PO daily March 11, 2024 7:39am June 10, 2024 7:34amondansetron 4 mg oral film (2 sources)Serotonin-3 Receptor AntagonistStart: 03-24-2021 End: 49-35-0064jxfk 4 mg by mouth every eight hoursOndansetron Discontinued 4 MG PO Q8H March 24, 2021 10:38pm March 27, 2021 11:37amStart: 03-24-2021 End: 20-44-3350ztie 4 mg by mouth every eight hoursOndansetron Discontinued 4 MG PO Q8H March 24, 2021 12:00am March 27, 2021 11:37amOndansetron 4 mg Film (3 sources)Start: 03-24-2021 End: 30-02-9849scxc 4 mg by mouth every eight hours as needed for nausea Ondansetron 4 mg Film Discontinued 4 MG PO Q8H as needed for Nausea March 24, 2021 12:00am March 27, 2021 11:37ampregabalin 75 mg oral capsule (20 sources)Start: 03-24-2021 End: 93-05-7748sdwq 1 capsule by mouth twice dailyPregabalin 75 mg capsule Discontinued 75 MG PO Twice daily March 24, 2021 12:00am April 08, 2025 4:15pm tiZANidine 4 mg oral tablet (20 sources)Central alpha-2 Adrenergic AgonistStart: 03-04-2022 End: 03-25-5800tgxc 1 tablet by mouth twice daily as neededtiZANidine (Zanaflex) 4 MG tablet Indications: Radiculopathy of lumbar region TAKE 1 TABLET BY MOUTH TWICE A DAY NEEDED 180 tablet 3 05/13/2024 03/24/2025 Discontinuedvalsartan 320 mg oral tablet (20 sources)Angiotensin 2 Receptor BlockerStart: 03-24-2021 End: 59-21-6841mfuh 1 tablet by mouth once dailyValsartan 320 mg tablet Discontinued 320 MG PO Daily March 24, 2021 12:00am April 08, 2025 4:15pm Problems Active Problems Problem ClassificationProblemDateDocumented DateEpisodic/ChronicAcute and unspecified renal failure (15 sources)Injury of kidney; Translations: [Acute kidney failure, unspecified] Onset: [id number] myocardial infarction (6 sources)Myocardial xpqwmrdkli77-26-8105ZmjkaykHsicltlaslsxqo/social admission (6 sources)Patient encounter status; Translations: [Other specified counseling] 21-29-8709HkmgmbhmRgvyiwo disorders (3 sources)Anxiety; Translations: [Anxiety disorder, unspecified]11-03-2024 ChronicAortic; peripheral; and visceral artery aneurysms (20 sources)Dissection of abdominal aorta; Translations: [Dissection of abdominal aorta]Onset: 457365-21-9632UsizzhhJpbuixb dysrhythmias (20 sources)Tucker rhythm disorder; Translations: [Other specified cardiac arrhythmias]Onset: 277629-13-3500KqbferlFvwcmlx kidney disease (20 sources)Chronic kidney disease stage 3B ; Translations: [Stage 3b chronic kidney disease (HCC)]Onset: 923435-79-0700WkofffzIhhmsie kidney disease (2 sources)Chronic kidney disease; Translations: [Chronic kidney disease, stage 3b]Onset: 24-22-5458Uyniprlfzzsk of device; implant or graft (20 sources)Atherosclerosis of coronary artery bypass graft(s) without angina pectoris; Translations: [Arteriosclerosis of autologous vein coronary artery bypass graft]Onset: 035716-66-0232FmzzbqmIxjgaextwe heart failure; nonhypertensive (4 sources)Chronic diastolic heart failure; Translations: [Chronic diastolic (congestive) heart failure]57-98-2891OyaixyyTlrkfdxw atherosclerosis and other heart disease (20 sources)Atherosclerotic heart disease of [place] coronary artery without angina pectoris; Translations: [Coronary atherosclerosis]Onset: 02-03-2022 ChronicDeficiency and other anemia (20 sources)Anemia due to chronic blood loss; 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 Deficiency and other anemia (10 sources)Anemia; Translations: [Anemia, unspecified]65-16-6694Ofvpxhng Deficiency and other anemia (1 source)Anemia, unspecified; Translations: [Anemia, unspecified]Onset: 14-84-1468NvwkgpikXjxdowtw mellitus without complication (2 sources)Type 2 diabetes xsbuqojc14-35-2277AssyslvKackitopf of lipid metabolism (20 sources)Hyperlipidemia; Translations: [Mixed hyperlipidemia]Onset: 361353-85-4593CnvzpwwBpnrxbjajy disorders (20 sources)Gastroesophageal reflux disease; Translations: [Gastro-esophageal reflux disease without esophagitis]Onset: 778433-03-7715NnweozbEssdcetpj hypertension (20 sources)Hypertensive disorder; Translations: [Essential (primary) hypertension]Onset: 629787-78-6219YagojnhTrxkm and electrolyte disorders (7 sources)Hypervolemia; Translations: [Fluid overload, unspecified]Onset: 472105-64-6241UwvvhcyoNflisriewfiumhep hemorrhage (12 sources)Lower gastrointestinal hemorrhage; Translations: [Gastrointestinal hemorrhage, unspecified]Onset: 143873-98-2812FptzpzwuXdryhmxnzqesi symptoms and ill-defined conditions (7 sources)Urge incontinence; Translations: [Urge incontinence of urine]Onset: 88-24-7993MffgjqpXknch valve disorders (3 sources)Nonrheumatic aortic (valve) insufficiency; Translations: [NONRHEUMATIC AORTIC INSUFFICIENCY]Onset: 57-33-3727JzsxcruLpwjtyrahlpg with complications and secondary hypertension (13 sources)Hypertensive renal disease; Translations: [Hypertensive chronic kidney disease with stage 1 throughstage 4 chronic kidney disease, or unspecified chronic kidney disease]Onset: 524024-83-2536BcxvpdxUxknqtr and fatigue (9 sources)Asthenia; Translations: [Weakness]Onset: 529917-21-4272Qgbhpicb Menopausal disorders (20 sources)Other primary ovarian failure; Translations: [Decreased estrogen level]Onset: 07-29-7356NavnvewVwjt disorders (20 sources)Depressive disorder; Translations: [Depressive disorder]Onset: 427774-24-9545CagtrndFnpbvccekflu breast conditions (20 sources)Fibrocystic disease of breast; Translations: [Diffuse cystic mastopathy of unspecified breast]Onset: 466783-49-6457VklkomkJgbftbknz or stenosis of precerebral arteries (20 sources)Occlusion and stenosis of bilateral carotid arteries; Translations: [Carotid artery occlusion]Onset: 876853-34-0590JzwrcjcBjnxatweosdlay (20 sources)Primary gonarthrosis, bilateral; Translations: [Bilateral primary osteoarthritis of knee]Onset: 660086-37-1458XrrdylaHmkwlboloasz (20 sources)Osteoporosis; Translations: [Age-related osteoporosis without current pathological fracture]Onset: 131462-90-6911YcboofeClnvl acquired deformities (2 sources)Spondylolisthesis, lumbar region; Translations: [Spondylolisthesis, lumbar region]Onset: 28-31-4152LvwcsewmAufuy acquired deformities (1 source)Spondylolisthesis, lumbosacral region; Translations: [Spondylolisthesis, lumbosacral region]Onset: 31-42-3262XbfhsoguRwazy aftercare (4 sources)Long-term current use of anticoagulant; Translations: [USP (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]Onset: 08-42-2432YrtnqyysFidny and ill-defined heart disease (6 sources)Heart bvadxmh41-66-4417SalbidkKbxfj circulatory disease (20 sources)Stricture of artery; Translations: [Stricture of artery]Onset: 471738-66-9840ColqzoyUnozf diseases of kidney and ureters (6 sources)Disorder of kidney and/or ureter; Translations: [Disorder of kidney and ureter, unspecified]Onset: 26-89-5853OfqtfhfkEvlqz diseases of veins and lymphatics (12 sources)Lymphedema; Translations: [Lymphedema, not elsewhere classified] Onset: 300382-64-1436GqugvqqXqhra diseases of veins and lymphatics (1 source)Lymphedema, not elsewhere classified; Translations: [Other lymphedema] 93-33-0020KzulkneWsesn gastrointestinal disorders (20 sources)Irritable bowel syndrome; Translations: [Irritable bowel syndrome without diarrhea]Onset: 359557-30-7068HkxueqsMwikd gastrointestinal disorders (2 sources)Constipation, unspecified; Translations: [Constipation, unspecified] Onset: 48-31-2324RfxtabiiLzegl gastrointestinal disorders (2 sources)Functional diarrhea; Translations: [Functional diarrhea]06-09-2025 EpisodicOther lower respiratory disease (4 sources)Fibrosis of lung; Translations: [Pulmonary fibrosis, unspecified] 24-65-1539IbqvhsqOfybz non-traumatic joint disorders (4 sources)Pain in left knee; Translations: [Left knee pain]71-77-4571Fjqjdfai Other nutritional; endocrine; and metabolic disorders (20 sources)Obese class I; Translations: [Obesity (BMI 30.0-34.9)]Onset: 655208-33-4221LvaygdzTmpvf nutritional; endocrine; and metabolic disorders (2 sources)Weight decreased; Translations: [Abnormal weight loss]02-25-2025 EpisodicOther skin disorders (2 sources)Loss of hair; Translations: [Nonscarring hair loss, unspecified] 92-58-0856EwearnlaYtqnwyqegc and visceral atherosclerosis (20 sources)Peripheral vascular disease, unspecified; Translations: [Peripheral vascular disease, unspecified]Onset: 875548-47-9652XbiwszcLimrageg codes; unclassified (20 sources)Insomnia co-occurrent and due to medical condition; Translations: [Insomnia due to medical condition]Onset: 385841-61-0265BazhovkAxcjuvph codes; unclassified (3 sources)Localized edema; Translations: [LOCALIZED EDEMA]Onset: 02-03-2022 EpisodicResidual codes; unclassified (4 sources)Poor oral hygiene; Translations: [Other specified personal risk factors, not elsewhere classified]62-76-7453TlniewliSgylqoep codes; unclassified (1 source)Tobacco use; Translations: [Tobacco use disorder]46-46-5441Bsgktvqv Residual codes; unclassified (1 source)Other specified personal risk factors, not elsewhere classified; Translations: [Other specified disorders of the teeth and supporting structures] 22-17-6821TuygneacJghjzanz codes; unclassified (3 sources)Insomnia, unspecified; Translations: [Insomnia, unspecified]Onset: 81-73-4089XehdbwllKktporivwlp; intervertebral disc disorders; other back problems (20 sources)Lumbar spondylosis; Translations: [Spondylosis without myelopathy or radiculopathy, lumbar region]Onset: 867427-54-6867NtbtdnfNhgojenhuxu; intervertebral disc disorders; other back problems (2 sources)Spondylosis; intervertebral disc disorders; other back problems; Translations: [L5-S1 RADICULOPATHY, SPONDYLOSIS]Onset: 72-35-4918Ddfnbdpvp- related disorders (20 sources)Tobacco dependence syndrome; Translations: [Nicotine dependence, unspecified, uncomplicated]Onset: 198266-04-6739MgdkttyXbkaijr disorders (20 sources)Thyroid nodule; Translations: [Nontoxic single thyroid nodule]Onset: 733841-24-3883IofblwaDquveutwhoio (5 sources)Drug therapy oluycbo84-20-1811Vpqosyftrzwg (15 sources)Patient on antidepressant monitoring planOnset: 956749-27-8153 Unclassified (2 sources)Follow-up with GI if needed. The office will follow-up pathology for H. pylori.Unclassified (1 source)Follow-up with Nephrology as previously scheduled. Recommend closer follow-up, please call office on Monday to see if can get a closer appointment. Past or Other Problems Problem ClassificationProblemDateDocumented DateEpisodic/ChronicAbdominal pain (20 sources)Generalized abdominal pain; Translations: [Generalized abdominal pain]Onset: 05-05-2023 Resolved: 025602-07-8484GzytmpcdEpqvlvpb foot deformities (20 sources)Left foot drop; Translations: [Foot drop, left foot]Onset: 946578-43-0497MefmsxmsPeklvayt reactions (20 sources)Allergy to seafood; Translations: [Allergy to seafood]Onset: 368859-46-7807FhcjsiyzAqiq; stupor; and brain damage (20 sources)Daytime somnolence; Translations: [Somnolence]Onset: 05-05-2023 80-00-7653ZqitcowzHlbxmzdp atherosclerosis and other heart disease (20 sources)Patient post percutaneous transluminal coronary angioplasty; Translations: [Coronary angioplasty status]Onset: 564812-29-6538Iznykhkt Diabetes mellitus with complications (20 sources)Renal disorder due to type 2 diabetes mellitus; Translations: [Type 2 diabetes mellitus with other diabetic kidney complication]Onset: 10-24-2019 Resolved: 403628-65-1153AvdnxguZeypocmvvamsl symptoms and ill-defined conditions (20 sources)Proteinuria; Translations: [Proteinuria, unspecified]Onset: 756697-08-4766RqddvhkkJlfp disorders (15 sources)Mood disordersOnset: Nausea and vomiting (20 sources)Nausea and vomiting; Translations: [Nausea with vomiting, unspecified]Onset: 349816-78-1067LosxhwkcQdmrrmpattw chest pain (20 sources)Chest pain; Translations: [Chest pain, unspecified]Onset: 05-23-2018 51-13-5531PjkltscbOxbht acquired deformities (20 sources)Lumbar spondylolisthesis; Translations: [Spondylolisthesis, lumbar region]Onset: 096797-71-3645GmjylelkQwsgy aftercare (1 source)USP (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; 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]Onset: 49-05-0086CfdvhnlzWsxig aftercare (20 sources)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; Translations: [fruit vendor (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]Onset: 599526-67-4206KcjkkxejKwuge connective tissue disease (3 sources)Pain in leg, unspecified; Translations: [PAIN IN LEG UNSPECIFIED] Onset: 21-96-0745VckpourrNzphk connective tissue disease (1 source)Pain in left leg; Translations: [PAIN IN LEFT LEG]Onset: 02-25-2022 EpisodicOther connective tissue disease (1 source)Pain in right leg; Translations: [PAIN IN RIGHT LEG]Onset: 02-25-2022 EpisodicOther connective tissue disease (20 sources)Fibromyalgia; Translations: [Fibromyalgia]Onset: 05-05-2023 17-73-7612CahcfccaNyzgn connective tissue disease (20 sources)Muscle pain; Translations: [Myalgia, unspecified site]Onset: 528302-37-3361TarmgaktEqoxj connective tissue disease (20 sources)Fibromyositis; Translations: [Fibromyalgia]Onset: 05-23-2018 20-54-0177UjmqltbbGnore connective tissue disease (20 sources)Neurogenic claudication; Translations: [Other symptoms and signs involving the nervous system]Onset: 644119-71-6764LtpgwpqrUmgyg connective tissue disease (1 source)Fibromyalgia; Translations: [Fibromyalgia]Onset: 09-01-7337Eopiroyf Other diseases of kidney and ureters (20 sources)Kidney lesion; Translations: [Disorder of kidney and ureter, unspecified]Onset: 710787-64-5471ZfdxoegpVbbcp diseases of kidney and ureters (4 sources)Disorder of kidney and ureter, unspecified; Translations: [DISORDER KIDNEY AND URETER UNS]Onset: 29-32-4983SnrsmkbuJsjwo diseases of veins and lymphatics (20 sources)Peripheral venous insufficiency; Translations: [Venous insufficiency (chronic) (peripheral)]Onset: 865661-54-9035IxorxvygYurex lower respiratory disease (5 sources)Shortness of breath; Translations: [SHORTNESS OF BREATH]Onset: 72-80-9166PycvekwzCbptb screening for suspected conditions (not mental disorders or infectious disease) (20 sources)Cardiovascular stress test abnormal; Translations: [Abnormal result of other cardiovascular function study]Onset: 059715-98-4161RkcnimfyZloiu upper respiratory infections (20 sources)Sinusitis; Translations: [Chronic sinusitis, unspecified]Onset: 04-30-2020 Resolved: 141282-85-8984KgudiqkJdfqifttr; thrombophlebitis and thromboembolism (20 sources)History of thromboembolism of vein; Translations: [Personal history of other venous thrombosis and embolism]Onset: 077339-90-8423Xnvfdkwo Pulmonary heart disease (20 sources)Personal history of pulmonary embolism; Translations: [Infarction of lung due to embolus]Onset: 978000-37-1961AwhqpccgFzzdxzpm codes; unclassified (20 sources)Nicotine user; Translations: [Tobacco use]Onset: 02-27-2019 44-18-6748RlouddgjKfnwzxbw codes; unclassified (20 sources)Other specified health status; Translations: [Other drug allergy] Onset: 346359-22-6914XslgtcdlIjxegblo codes; unclassified (20 sources)Localized edema; Translations: [Localized edema]Onset: 10-04-2023 84-65-6215MwiazoolSvvpprqylaf; intervertebral disc disorders; other back problems (20 sources)Spinal stenosis of lumbar region; Translations: [Spinal stenosis, lumbar region with neurogenic claudication]Onset: 849071-58-3932Onggtxzb Results Test NameValueInterpretationReference RangeFacilityHMHP CBC WITH PLATELET NO DIFFERENTIALon 53-43-8789Woqpvmsukye distribution width (RBC) [Ratio]17.8 %High 11.0 - 15.0 %NOMS HealthcareHematocrit (Bld) [Volume fraction]26.8 %Low36.0 - 48.0 %[facility] HealthcareHemoglobin (Bld) [Mass/Vol]9.1 g/dLLow12.0 - 16.0 g/dLMissouri Southern HealthcareInterpretation and review of laboratory resultsAbnormalNOMercy Hospital St. John's MCH (RBC) [Entitic mass]29.0 pg26.7 - 34.0 pgMissouri Southern HealthcareMCHC (RBC) [Mass/Vol]34.0 g/dL29.9 - 35.2 g/dLMissouri Southern HealthcareMCV (RBC) [Entitic vol]85.4 fL 81.0 - 99.0 fLMissouri Southern HealthcarePlatelet mean volume (Bld) [Entitic vol]10.7 fL9.5 - 13.5 fLMissouri Southern HealthcareTBH BDP166LYESMercy Hospital St. John'sTB RBC3.14LowMissouri Southern Healthcare TBH WBC4.3[facility] Southern HealthcareCLINISYNCNOMS HealthcareCOMPREHENSIVE METABOLIC PANELon 47-84-2813Lpfwqna [Mass/Vol]3.7 g/dLNormal3.6-5.1Quest DiagnosticsComment on above:Performed By: #### [id number] #### [facility] [place] [address] Machine Hose Cutter: Figueroa Jacques MDAlbumin/Globulin [Mass ratio]1.6 {ratio}Normal 1.0-2.5Quest DiagnosticsComment on above:Performed By: #### [id number] #### [facility] [place] [address] Machine Hose Cutter: Figueroa Jacques MDALP [Catalytic activity/Vol]24 U/CYfk13-004 Quest DiagnosticsComment on above:Performed By: #### 23534 #### [facility] [place] [address] Machine Hose Cutter: Figueroa Jacques MDALT [Catalytic activity/Vol]8 U/LNormal6-29 Quest DiagnosticsComment on above:Performed By: #### [id number] #### [facility] [place] [address] [place] [address] Machine Hose Cutter: Figueroa Jacques MDAST [Catalytic activity/Vol]32 U/VPbkdmn22-12 Quest DiagnosticsComment on above:Performed By: #### 98582 #### [facility] [place] [address] Machine Hose Cutter: Fiugeroa Jacques MDBilirubin [Mass/Vol]0.7 mg/dLNormal0.2-1.2 Quest DiagnosticsComment on above:Performed By: #### 33218 #### [facility] [place] [address] Machine Hose Cutter: Figueroa Jacques MDCalcium [Mass/Vol]6.6 mg/dLLow8.6-10.4Quest DiagnosticsComment on above:Performed By: #### 38572 #### [facility] [place] [address] Machine Hose Cutter: Figueroa Jacques MDChloride [Moles/Vol]103 mmol/PYfzhlz01-338 Quest DiagnosticsComment on above:Performed By: #### 70432 #### [facility] [place] [address] Machine Hose Cutter: Figueroa Jacques MDCO2 [Moles/Vol]24 mmol/FZzkqvc71-95Unfiw DiagnosticsComment on above:Performed By: #### 51186 #### [facility] [place] [address] Machine Hose Cutter: Figueroa Jacques MDCreatinine [Mass/Vol]3.66 mg/dLHigh0.60-1.00 Quest DiagnosticsComment on above:Performed By: #### 76225 #### [facility] [place] [address] Machine Hose Cutter: Figueroa Jacques MDGFR/1.73 sq M.predicted among non-blacks MDRD (S/P/Bld) [Vol rate/Area]12 mL/min/{1.73_m2}Low> OR = 60Quest DiagnosticsComment on above:Performed By: #### 53690 #### [facility] [place] [address] Machine Hose Cutter: Figueroa Jacques MDGlobulin (S) [Mass/Vol]2.3 g/dLNormal1.9-3.7 Quest DiagnosticsComment on above:Performed By: #### 11796 #### [facility] [place] [address] Machine Hose Cutter: Figueroa Jacques MDGlucose [Mass/Vol]124 mg/qJYqxb38-61Lhwxf DiagnosticsComment on above:Result Comment: Fasting reference interval For someone without known diabetes, a glucose value between 100 and 125 mg/dL is consistent with prediabetes and should be confirmed with a follow-up test.Performed By: #### 63825 #### [facility] [place] [address] Machine Hose Cutter: Figueroa Jacques MDPotassium [Moles/Vol]3.3 mmol/LLow3.5-5.3Quest DiagnosticsComment on above:Performed By: #### [id number] #### [facility] [place] [address] Machine Hose Cutter: Figueroa Jacques MDProtein [Mass/Vol]6.0 g/dLLow6.1-8.1Quest DiagnosticsComment on above:Performed By: #### 62862 #### [facility] [place] [address] Machine Hose Cutter: Figueroa Jacques MDSodium [Moles/Vol]140 mmol/UXuflso309-915Fahzf DiagnosticsComment on above:Performed By: #### 01385 #### [facility] [place] [address] Machine Hose Cutter: Figueroa Jacques MDUrea nitrogen [Mass/Vol]72 mg/dLHigh7-25Quest DiagnosticsComment on above:Performed By: #### 31514 #### [facility] [address] [place] [address] Machine Hose Cutter: Figueroa Jacques MDUrea nitrogen/Creatinine [Mass ratio]20 mg/mg Normal6-Quest DiagnosticsComment on above:Performed By: #### 92563 #### [facility] [address] [place] [address] Machine Hose Cutter: Figueroa Jacques MDLaboratory - Chemistry and Chemistry - [facility] 15-49-7809Qscvxxx [Mass/Vol]3.7 g/dL3.6 - 5.1 g/dLNODC Healthcare Albumin/Globulin [Mass ratio]1.6 {ratio}NOMS HealthcareALP [Catalytic activity/Vol]24 U/LLow37 - 153 U/LNOMS HealthcareALT [Catalytic activity/Vol]8 U/L6 - 29 U/LNOMS HealthcareAST [Catalytic activity/Vol]32 U/L10 - 35 U/LNOMS HealthcareBilirubin [Mass/Vol]0.7 mg/dL0.2 - 1.2 mg/dLNOMS HealthcareCalcium [Mass/Vol]6.6 mg/dLLow8.6 - 10.4 mg/dLNOMS HealthcareChloride [Moles/Vol]103 mmol/L98 - 110 mmol/LNOMS HealthcareCO2 [Moles/Vol]24 mmol/L20 - 32 mmol/LNOMS HealthcareCreatinine [Mass/Vol]3.66 mg/dLHigh0.60 - 1.00 mg/dLNODC Healthcare GFR/1.73 sq M.predicted among non-blacks MDRD (S/P/Bld) [Vol rate/Area]12 mL/min/{1.73_m2}Low> OR = 60 mL/min/1.94q7LIWJ HealthcareGlobulin (S) [Mass/Vol] 2.3 g/dLNOMS HealthcareGlucose [Mass/Vol]124 mg/wLHlfd28 - 99 mg/dLNODC HealthcareComment on above: Fasting reference interval For someone without known diabetes, a glucose value between 100 and 125 mg/dL is consistent with prediabetes and should be confirmed with a follow-up test. Potassium [Moles/Vol]3.3 mmol/LLow3.5 - 5.3 mmol/LNOMS HealthcareProtein [Mass/Vol]6.0 g/dLLow6.1 - 8.1 g/dLNOMS HealthcareSodium [Moles/Vol]140 mmol/L 135 - 146 mmol/LNOMS HealthcareUrea nitrogen [Mass/Vol]72 mg/dLHigh7 - 25 mg/dL NOMS HealthcareUrea nitrogen/Creatinine [Mass ratio]20 mg/mgNOMS HealthcareNo Panel Informationon 51-47-6922Zcngceluxdycle and review of laboratory results AbnormalNODC HealthcarePerforming Organization Information Site ID: QPT Name: [employer] [facility] Address: [address] , [address] [place] [id number] Director: Figueroa Jacques MDMissouri Southern HealthcareNODC HealthcareALL PRO BNPon 06-09-2025 NT PRO B TYPE NATRIURETIC [id number] pg/mLCritically highNINF - 1800.0 pg/mLNOMS HealthcareComment on above:RESULTS CALLED TO PEPE FISHER CMP (CMP) (FOR REMOTE [facility] USE)on 78-07-8217Omxlxkx [Mass/Vol]3.4 g/dL3.4 - 5.0 g/dLNODC HealthcareALBUMIN GLOBULIN RATIO0.9NODC HealthcareALP [Catalytic activity/Vol]30 U/LLow46 - 116 U/LNOMS HealthcareALT [Catalytic activity/Vol]10 U/LLow14 - 59 U/LNOMS HealthcareAnion gap [Moles/Vol]14.5 mmol/LNOMS HealthcareAST [Catalytic activity/Vol]35 U/L15 - 37 U/LNOMS HealthcareBilirubin [Mass/Vol]0.8 mg/dL0.2 - 1.0 mg/dLNODC HealthcareCalcium [Mass/Vol]6.8 mg/dLLow8.5 - 10.1 mg/dLNODC HealthcareChloride [Moles/Vol]102 mmol/L98 - 107 mmol/LNOMS HealthcareCO2 [Moles/Vol]29.5 mmol/L21.0 - 32.0 mmol/LNOMS HealthcareCreatinine [Mass/Vol]3.8 mg/dLHigh0.55 - 1.02 mg/dLNODC HealthcareGFR/1.73 sq M.predicted CKD-EPI (S/P/Bld) [Vol rate/Area]14Low>=60 mL/min/1.73m 2NOMS HealthcareGlobulin (S) [Mass/Vol]3.8 g/dLNODC HealthcareGlucose [Mass/Vol]99 mg/dL74 - 106 mg/dLNODC HealthcarePotassium [Moles/Vol]3 mmol/LLow3.5 - 5.1 mmol/LNOMS HealthcareProtein [Mass/Vol]7.2 g/dL6.4 - 8.2 g/dLNODC HealthcareSodium [Moles/Vol]143 mmol/L136 - 145 mmol/LNOMS HealthcareTBH EGFR-NON AF CBUXXAMO26Jyb>=60 mL/min/1.73m 2NOMS HealthcareUrea nitrogen [Mass/Vol]64 mg/dLHigh7.0 - 18.0 mg/dLNOMercy Hospital St. John's Urea nitrogen/Creatinine [Mass ratio]16.8 mg/mgGARFIELD MEMORIAL [facility]PITAL HealthcareNo Panel Informationon 15-83-5908Qedrjvgxvafxdu and review of laboratory resultsAbnormal NOMS HealthcareCLINISYNCNEASTERN OKLAHOMA [facility] HealthcareTSH W/REFLEX T4on 26-20-0789YEO Qn4.13 m[IU]/LHighMissouri Southern HealthcareBasic Metabolic Panelon 95-70-6676Iusvx gap [Moles/Vol]10.5 mmol/LNormal6.0-15.0The [facility] Physician GroupComment on above:Performed By: #### BMP, CBC ####[place] [address] USACalcium [Mass/Vol]8.5 mg/dLLow8.6-10.3The [facility] Physician GroupComment on above:Performed By: #### BMP, CBC ####[place] [id number] USAChloride [Moles/Vol] 103 mmol/SYpejbv60-937Lax [facility] Physician GroupComment on above:Performed By: #### BMP, CBC ####[place] [id number] USACO2 [Moles/Vol]27.0 mmol/TZrznlz17.0-31.0The [facility] Physician GroupComment on above:Performed By: #### BMP, CBC ####[place] [id number] USACreatinine [Mass/Vol]4.15 mg/dLHigh 0.60-1.20The [facility] Physician GroupComment on above:Performed By: #### BMP, CBC ####[place] [address] [place] Creatinine Clr Calc Ejnqmldu14.14NormalThBonner General Hospital Physician GroupComment on above:Result Comment: PERFORMED BY: [facility] [address] [place] [id number] PATHOLOGIST IGNITION SPECIALIST ELIZABETH MOREL M.D.Performed By: #### BMP, CBC ####[place] [address] USAGFR/1.73 sq M.predicted MDRD (S/P/Bld) [Vol rate/Area]10.650 mL/min/{1.73_m2}NormalThe [facility] Comment on above:Performed By: #### BMP, CBC ####[place] [address] USAGlucose [Mass/Vol]136 mg/vRPplc99-410 The [facility] Physician GroupComment on above:Result Comment: Random Glucose Reference Range is dependent on time and content of last meal. Glucose of more than 200 mg/dL in a nonstressed, ambulatory subject supports the diagnosis of Diabetes Mellitus. ADA recommended reference rangePerformed By: #### BMP, CBC ####[place] [address] USAPotassium [Moles/Vol] 3.5 mmol/LNormal3.5-5.1The [facility] Physician GroupComment on above:Performed By: #### BMP, CBC ####[place] [address] USASodium [Moles/Vol]137 mmol/BPepkda157-324Bni [facility] Physician GroupComment on above:Performed By: #### BMP, CBC ####[place] [address] USAUrea nitrogen [Mass/Vol]61 mg/dLHigh 7-25The [facility] Physician GroupComment on above:Performed By: #### BMP, CBC ####[place] [id number] [facility] Complete Blood Count Auto Diffon 16-16-6628Rkzoxmear (Bld) [#/Vol]0.0 10*3/uL Normal0.0-0.2The [facility] Physician GroupComment on above:Result Comment: PERFORMED BY: [facility] [address] [place] [id number] PATHOLOGIST IGNITION SPECIALIST ELIZABETH MOREL M.D.Performed By: #### BMP, CBC ####[place] [address] USABasophils/100 WBC (Bld)0.7 %Normal.The [facility] Physician GroupComment on above:Performed By: #### BMP, CBC ####[address] Eosinophils (Bld) [#/Vol]0.2 10*3/uLNormal0.0-0.45The [facility] Comment on above:Performed By: #### BMP, CBC ####[place] [address] USAEosinophils/100 WBC (Bld)3.3 %Normal. The [facility] Physician GroupComment on above:Performed By: #### BMP, CBC ####[address] Erythrocyte distribution width (RBC) [Ratio]16.4 %High11.9-15.3The [facility] Physician GroupComment on above:Performed By: #### BMP, CBC ####[place] [address] USAHematocrit (Bld) [Volume fraction]27.2 %Low34.0-46.4The [facility] Physician GroupComment on above:Performed By: #### BMP, CBC ####[place] [address] USAHemoglobin (Bld) [Mass/Vol]9.0 g/dLLow11.8-15.4The [facility] Physician GroupComment on above:Performed By: #### BMP, CBC ####[place] [address] [place] Lymphocytes (Bld) [#/Vol]0.8 10*3/uLLow1.00-4.8The [facility] Comment on above:Performed By: #### BMP, CBC ####[place] [address] USALymphocytes/100 WBC (Bld)14.9 %Normal. The [facility] Physician GroupComment on above:Performed By: #### BMP, CBC ####[address] (RBC) [Entitic mass]29.1 yaVtjjjf59.7-34.3The [facility] Physician GroupComment on above:Performed By: #### BMP, CBC ####[address] (RBC) [Entitic vol]88.3 yUDriqpn96-222Ozn [facility] Physician GroupComment on above:Performed By: #### BMP, CBC ####[place] [address] USAMean Corpuscular HGB Conc33.0 g/mECiiqhj86.0-35.0The [facility] Physician GroupComment on above:Performed By: #### BMP, CBC ####[place] [address] USAMonocytes (Bld) [#/Vol]0.5 10*3/uLNormal 0.0-0.8The [facility] Physician GroupComment on above:Performed By: #### BMP, CBC ####[place] [address] [place] Monocytes/100 WBC (Bld)9.1 %Normal.The [facility] Physician GroupComment on above:Performed By: #### BMP, CBC ####[place] [address] USANeutrophils (Bld) [#/Vol]4.0 10*3/uLNormal1.8-7.7The [facility] Physician GroupComment on above:Performed By: #### BMP, CBC ####[place] [address] [place] Neutrophils/100 WBC (Bld)72.0 %Normal.The [facility] Physician GroupComment on above:Performed By: #### BMP, CBC ####[place] [address] USANRBC%0.1 /100{WBC}Normal0-0.5The [facility] Physician GroupComment on above:Performed By: #### BMP, CBC ####[place] [address] USAPlatelet mean volume (Bld) [Entitic vol]9.3 fLNormal6.3-10.7The [facility] Physician GroupComment on above: Performed By: #### BMP, CBC ####[place] [address] USAPlatelets (Bld) [#/Vol]176 10*3/jAEaueko911-878Tki [facility] Physician GroupComment on above:Performed By: #### BMP, CBC ####[place] [address] USARBC (Bld) [#/Vol]3.09 10*6/uLLow3.60-5.00The [facility] Physician GroupComment on above:Performed By: #### BMP, CBC ####[place] [address] USAWBC (Bld) [#/Vol]5.6 10*3/uLNormal3.8-11.6The [facility] Physician GroupComment on above:Performed By: #### BMP, CBC ####[place] [address] USAWhite Blood Count5.6 [CFU]/mLNormal3.8-11.6The [facility] Physician GroupComment on above:Performed By: #### BMP, CBC ####[place] [address] USABasic Metabolic Panelon 22-13-8630Zgneu gap [Moles/Vol]12.2 mmol/LNormal6.0-15.0The [facility] Physician GroupComment on above:Performed By: #### BMP #### [place] [address] USACalcium [Mass/Vol]8.4 mg/dLLow8.6-10.3The [facility] Physician GroupComment on above:Performed By: #### BMP #### [facility] [address] [place] [address] USAChloride [Moles/Vol]106 mmol/GQfbylh30-103Xpx [facility] Physician GroupComment on above:Performed By: #### BMP #### [place] [address] USACO2 [Moles/Vol]25.2 mmol/TFnhech86.0-31.0The [facility] Physician GroupComment on above:Performed By: #### BMP #### [place] [address] USACreatinine [Mass/Vol]3.69 mg/dLHigh0.60-1.20The [facility] Physician GroupComment on above:Performed By: #### BMP #### [place] [address] USACreatinine Clr Calc Zvaxraur29.26NormalThe [facility] Physician GroupComment on above:Result Comment: PERFORMED BY: [place] [address] PATHOLOGIST IGNITION SPECIALIST ELIZABETH MOREL M.D.Performed By: #### BMP #### [place] [address] USAGFR/1.73 sq M.predicted MDRD (S/P/Bld) [Vol rate/Area] 12.263 mL/min/{1.73_m2}NormalThe [facility] Physician GroupComment on above: Performed By: #### BMP #### [place] [address] USAGlucose [Mass/Vol]79 mg/tOYtbjay28-359Pfc [facility] Physician GroupComment on above:Result Comment: Random Glucose Reference Range is dependent on time and content of last meal. Glucose of more than 200 mg/dL in a nonstressed, ambulatory subject supports the diagnosis of Diabetes Mellitus. ADA recommended reference rangePerformed By: #### BMP #### [place] [address] USAPotassium [Moles/Vol]3.4 mmol/LLow3.5-5.1The [facility] Physician GroupComment on above:Performed By: #### BMP #### [facility] [address] [place] [address] USASodium [Moles/Vol]140 mmol/JQqoulq004-784Jxd [facility] Physician [facility] County HospitalComment on above:Performed By: #### BMP #### [place] [address] USAUrea nitrogen [Mass/Vol]62 mg/dLHigh7-25The [facility] Physician GroupComment on above:Performed By: #### BMP #### [facility] [address] [place] [address] USACreatinine, Urine (Random)on 07-60-0081Grzkabwpde, Urine (Random)61.00 mg/dLNoFormerly [facility] Physician [facility] County HospitalComment on above:Result Comment: No reference range establishedPerformed By: #### UCREA, URTP ####[place] [address] [facility] Pathology Request for Lab Corpon 36-37-8265Psytkjwto Request for Lab CorpNormal The [facility] Physician GroupComment on above:Order Comment: GI SPECIMENResult Comment: See report. Scanned copy available in EMR. PERFORMED BY: [place] [address] PATHOLOGIST IGNITION SPECIALIST ELIZABETH MOREL M.D.Performed By: #### PATH TO [facility] ####[place] [address] USATotal Protein, Urineon 50-99-8985Cmwwfiu (U) [Mass/Vol]67 mg/dLHigh0-9The [facility] Comment on above:Result Comment: PERFORMED BY: [place] [address] PATHOLOGIST IGNITION SPECIALIST ELIZABETH MOREL M.D.Performed By: #### UCREA, URTP ####[place] [address] USAComplete Blood Count Auto Diff on 86-30-5911Klebifowm (Bld) [#/Vol]0.0 10*3/uLNormal0.0-0.2The [facility] Physician GroupComment on above:Result Comment: PERFORMED BY: [place] [address] PATHOLOGIST IGNITION SPECIALIST ELIZABETH MOREL M.D.Performed By: #### MG, PT, CMP, PHOS, CBC, PTT ####[place] [address] [place] Basophils/100 WBC (Bld)1.0 %Normal.The [facility] Physician GroupComment on above:Performed By: #### MG, PT, CMP, PHOS, CBC, PTT ####[place] [address] USAEosinophils (Bld) [#/Vol]0.2 10*3/uLNormal0.0-0.45The [facility] Physician GroupComment on above:Performed By: #### MG, PT, CMP, PHOS, CBC, PTT ####[place] [address] USAEosinophils/100 WBC (Bld)4.2 %Normal.The [facility] Physician GroupComment on above:Performed By: #### MG, PT, CMP, PHOS, CBC, PTT ####[place] [address] [place] Erythrocyte distribution width (RBC) [Ratio]16.3 %High11.9-15.3The [facility] Physician GroupComment on above:Performed By: #### MG, PT, CMP, PHOS, CBC, PTT ####[place] [address] [place] Hematocrit (Bld) [Volume fraction]24.8 %Low34.0-46.4The [facility] Physician GroupComment on above:Performed By: #### MG, PT, CMP, PHOS, CBC, PTT ####[address] Hemoglobin (Bld) [Mass/Vol]8.4 g/dLLow11.8-15.4The [facility] Comment on above:Performed By: #### MG, PT, CMP, PHOS, CBC, PTT ####[place] [address] USALymphocytes (Bld) [#/Vol]1.2 10*3/uLNormal1.00-4.8The [facility] Physician GroupComment on above: Performed By: #### MG, PT, CMP, PHOS, CBC, PTT ####[place] [address] USALymphocytes/100 WBC (Bld)29.3 %Normal. The [facility] Physician GroupComment on above:Performed By: #### MG, PT, CMP, PHOS, CBC, PTT ####[address] (RBC) [Entitic mass]29.7 ugTrtoky69.7-34.3The [facility] Physician GroupComment on above:Performed By: #### MG, PT, CMP, PHOS, CBC, PTT ####[address]V (RBC) [Entitic vol]88.2 iPYvbuvt88-670Wpw [facility] Physician GroupComment on above:Performed By: #### MG, PT, CMP, PHOS, CBC, PTT ####[place] [address] USAMean Corpuscular HGB Conc33.7 g/bLSzuvri33.0-35.0The [facility] Physician GroupComment on above:Performed By: #### MG, PT, CMP, PHOS, CBC, PTT ####[place] [address] USAMonocytes (Bld) [#/Vol]0.5 10*3/uLNormal0.0-0.8The [facility] Physician GroupComment on above:Performed By: #### MG, PT, CMP, PHOS, CBC, PTT ####[place] [address] USAMonocytes/100 WBC (Bld)12.9 %Normal.The [facility] Physician GroupComment on above:Performed By: #### MG, PT, CMP, PHOS, CBC, PTT ####[place] [address] USANeutrophils (Bld) [#/Vol]2.1 10*3/uLNormal1.8-7.7The [facility] Physician GroupComment on above:Performed By: #### MG, PT, CMP, PHOS, CBC, PTT ####[place] [address] USANeutrophils/100 WBC (Bld)52.6 %Normal.The [facility] Physician GroupComment on above:Performed By: #### MG, PT, CMP, PHOS, CBC, PTT ####[place] [address] USANRBC% 0.1 /100{WBC}Normal0-0.5The [facility] Physician GroupComment on above:Performed By: #### MG, PT, CMP, PHOS, CBC, PTT ####[place] [address] USAPlatelet mean volume (Bld) [Entitic vol]9.2 fL Normal6.3-10.7The [facility] Physician GroupComment on above:Performed By: #### MG, PT, CMP, PHOS, CBC, PTT ####[place] [address] USAPlatelets (Bld) [#/Vol]188 10*3/hCTwbkad957-565Jma [facility] Physician GroupComment on above:Performed By: #### MG, PT, CMP, PHOS, CBC, PTT ####[address] [address] USARBC (Bld) [#/Vol]2.81 10*6/uLLow3.60-5.00The [facility] Physician GroupComment on above:Performed By: #### MG, PT, CMP, PHOS, CBC, PTT ####[place] [address] USAWBC (Bld) [#/Vol]4.1 10*3/uL Normal3.8-11.6The [facility] Physician GroupComment on above:Performed By: #### MG, PT, CMP, PHOS, CBC, PTT ####[place] [address] USAWhite Blood Count4.1 [CFU]/mLNormal3.8-11.6The [facility] Physician GroupComment on above:Performed By: #### MG, PT, CMP, PHOS, CBC, PTT ####[place] [address] USAComprehensive Metabolic Panelon 41-23-5484Tbazmer [Mass/Vol]3.3 g/dLLow 3.5-5.7The [facility] Physician GroupComment on above:Performed By: #### MG, PT, CMP, PHOS, CBC, PTT ####[place] [address] USAAlbumin/Globulin [Mass ratio]1.4 {ratio}NormalThe [facility] Physician GroupComment on above:Performed By: #### MG, PT, CMP, PHOS, CBC, PTT ####[place] [address] USAALP [Catalytic activity/Vol]29 U/JAft31-863Nfe [facility] Physician GroupComment on above:Performed By: #### MG, PT, CMP, PHOS, CBC, PTT ####[place] [address] USAALT [Catalytic activity/Vol]4 U/LLow7-52The [facility] Physician GroupComment on above:Performed By: #### MG, PT, CMP, PHOS, CBC, PTT ####[place] [address] USAAnion gap [Moles/Vol]11.2 mmol/LNormal6.0-15.0The [facility] Physician GroupComment on above:Performed By: #### MG, PT, CMP, PHOS, CBC, PTT ####[place] [address] USAAST [Catalytic activity/Vol]17 U/WIfyigf94-60Bxx [facility] Physician GroupComment on above:Performed By: #### MG, PT, CMP, PHOS, CBC, PTT ####[place] [address] USABilirubin [Mass/Vol]0.5 mg/dL Normal0.3-1.0The [facility] Physician GroupComment on above:Performed By: #### MG, PT, CMP, PHOS, CBC, PTT ####[place] [address] USACalcium [Mass/Vol]8.2 mg/dLLow8.6-10.3The [facility] Physician GroupComment on above:Performed By: #### MG, PT, CMP, PHOS, CBC, PTT ####[place] [address] [place] Chloride [Moles/Vol]105 mmol/USoygsi12-095Bub [facility] Physician GroupComment on above:Performed By: #### MG, PT, CMP, PHOS, CBC, PTT ####[place] [address] USACO2 [Moles/Vol]26.6 mmol/L Xigsmy97.0-31.0The [facility] Physician GroupComment on above:Performed By: #### MG, PT, CMP, PHOS, CBC, PTT ####[place] [address] USACreatinine [Mass/Vol]3.53 mg/dLHigh0.60-1.20The [facility] Physician GroupComment on above:Performed By: #### MG, PT, CMP, PHOS, CBC, PTT ####[place] [address] USACreatinine Clr Calc Bcghpgli50.77NoFormerly [facility] Physician GroupComment on above:Performed By: #### MG, PT, CMP, PHOS, CBC, PTT ####[place] [address] USAGFR/1.73 sq M.predicted MDRD (S/P/Bld) [Vol rate/Area]12.933 mL/min/{1.73_m2}NormalThe [facility] Physician GroupComment on above:Performed By: #### MG, PT, CMP, PHOS, CBC, PTT ####[place] [address] [place] Globulin (S) [Mass/Vol]2.4 g/dLNoFormerly [facility] Physician GroupComment on above:Performed By: #### MG, PT, CMP, PHOS, CBC, PTT ####[place] [address] USAGlucose [Mass/Vol]77 mg/dL Pjswyt49-844Lcv [facility] Physician GroupComment on above:Result Comment: Random Glucose Reference Range is dependent on time and content of last meal. Glucose of more than 200 mg/dL in a nonstressed, ambulatory subject supports the diagnosis of Diabetes Mellitus. ADA recommended reference rangePerformed By: #### MG, PT, CMP, PHOS, CBC, PTT ####[place] [address] [place] Potassium [Moles/Vol]3.8 mmol/LNormal3.5-5.1The [facility] Physician GroupComment on above:Performed By: #### MG, PT, CMP, PHOS, CBC, PTT ####[place] [address] USAProtein [Mass/Vol]5.7 g/dLLow 6.4-8.9The [facility] Physician GroupComment on above:Performed By: #### MG, PT, CMP, PHOS, CBC, PTT ####[facility] [address] [place] [address] USASodium [Moles/Vol]139 mmol/LXxqvwx799-316Jfz [facility] Physician GroupComment on above:Performed By: #### MG, PT, CMP, PHOS, CBC, PTT ####[facility] [address] [place] [address] USAUrea nitrogen [Mass/Vol]64 mg/dLHigh7-25The [facility] Physician GroupComment on above:Performed By: #### MG, PT, CMP, PHOS, CBC, PTT ####[facility] [address] [place] [address] USAECH echo transthoracicon 10-18-3049SUB echo transthoracicST. [facility] [address] [place] [address] [place] [id number] Echocardiogram Signed Patient: Marleni Dennis MR#: [id number] : 1950 Acct:[id number] Age/Sex: 74 / F ADM Date: 04/08/25 Loc: Room: [address] [place] [address] Type: ADM IN Attending Dr: Nick Antonio [...] GARCIA MD on (more content not included)...NormalThe [facility] Community HospitalMagnesiumon 05-12-1934Dugsfsnvz [Mass/Vol]1.1 mg/dLLow1.9-2.7The [facility] Physician [facility] HospitalComment on above: Result Comment: PERFORMED BY: [address] [address] PATHOLOGIST IGNITION SPECIALIST ELIZABETH MOREL M.D.Performed By: #### MG, PT, CMP, PHOS, CBC, PTT ####[place] [address] [place] [address] USAPartial Thromboplastin Timeon 71-21-7984iCQI Coag (Bld) [Time]31.2 uYqeqfm02.1-36.5The [facility] Community HospitalComment on above:Result Comment: A hematocrit value greater than 55% may lead to inaccurate results in coagulation testing. Patients having hematocrit values >55% require a special collection tube for coagulation studies. Please contact the laboratory at [phone] for redraw instructions. PERFORMED BY: [address] [place] [address] PATHOLOGIST IGNITION SPECIALIST ELIZABETH MOREL M.D.Performed By: #### MG, PT, CMP, PHOS, CBC, PTT ####[place] [address] [place] [address] [place] Phosphoruson 45-98-2838Hsecjqmca [Mass/Vol]3.2 mg/dLNormal2.5-4.5The [facility] Physician GroupComment on above:Performed By: #### MG, PT, CMP, PHOS, CBC, PTT ####[facility] [place] [id number] [facility] Prothrombin Time INRon 97-44-4418HKP Coag (PPP) [Relative time]1.3 {INR}Normal The [facility] Physician GroupComment on above:Result Comment: INR Therapeutic [...] #### MG, PT, CMP, PHOS, CBC, PTT ####[facility] [place] [address] USAPT Coag (PPP) [Time]15.2 sHigh9.0-12.9The [facility] Physician GroupComment on above:Result Comment: A hematocrit value greater than 55% may lead to inaccurate results in coagulation testing. Patients having hematocrit values >55% require a special collection tube for coagulation studies. Please contact the laboratory at [phone] for redraw instructions.Performed By: #### MG, PT, CMP, PHOS, CBC, PTT ####[facility] [place] [id number] USAAlanine aminotransferase [Enzymatic activity/volume] in Serum or PlasmaOrdered By: Sohail Figueroa on 64-91-1477OKV [Catalytic activity/Vol]6 U/LLow7-52[facility] For RehabilitationComment on above:Performed By: #### PT, PTT, LIPASE, CMP, HS TROP, CBC #### [facility] [address] [place] [address] USAAlbumin [Mass/volume] in Serum or Plasma by Bromocresol green (BCG) dye binding methoOrdered By: Sohail Figueroa on 33-30-1053Aajrskk BCG dye [Mass/Vol]4.1 g/dL3.5-5.7FKettering Health TroyAlkaline phosphatase [Enzymatic activity/volume] in Serum or PlasmaOrdered By: Sohail Figueroa on 24-66-4780IQG [Catalytic activity/Vol]38 U/NTelzzb37-307UzlcfxlmeChildren'S Hospital For RehabilitationComment on above:Performed By: #### PT, PTT, LIPASE, CMP, HS TROP, CBC #### [facility] [address] [place] [address] USAAppearance of UrineOrdered By: Sohail Figueroa on 04-08-2025 Appearance (U)ClearNormalClearChildren'S Hospital For RehabilitationComment on above: Order Comment: Name Collection Type:: Clean-Voided MidstreamPerformed By: #### ADDONUAPLUS ####[place] [address] USAAspartate aminotransferase [Enzymatic activity/volume] in Serum or PlasmaOrdered By: Sohail Figueroa on 81-41-4613CQU [Catalytic activity/Vol]22 U/L Nchcak18-09IuvbojikmChildren'S Hospital For RehabilitationComment on above:Performed By: #### PT, PTT, LIPASE, CMP, HS TROP, CBC #### [facility] [address] [place] [address] USABNP ser/plasOrdered By: Sohail Figueroa on 04-08-2025 Natriuretic peptide B (Bld) [Mass/Vol]1455.0 pg/mLHigh5-100[facility] For RehabilitationComment on above:Result Comment: PERFORMED BY: [address] [address] PATHOLOGIST IGNITION SPECIALIST ELIZABETH MOREL M.D.Performed By: #### BNP ####[place] [address] USABacteria [Presence] in Urine by AutomatedOrdered By: Sohail Figueroa on 74-71-3499Jxsebmcv Auto Ql (U)None seen [HPF]None SeenChildren'S Hospital For RehabilitationBasophils [#/volume] in Blood by Automated countOrdered By: Sohail Figueroa on 67-65-2954Hzctbzyet (Bld) [#/Vol]0.0 10*3/uLNormal0.0-0.2FKettering Health TroyComment on above:Result Comment: PERFORMED BY: [place] [address] PATHOLOGIST IGNITION SPECIALIST ELIZABETH MOREL M.D.Performed By: #### PT, PTT, LIPASE, CMP, HS TROP, CBC #### [place] [address] USABasophils/100 leukocytes in Blood by Automated count Ordered By: Sohail Figueroa on 53-82-6125Zufnuqoih/100 WBC (Bld)1.0 %Normal. [facility] Hospital For RehabilitationComment on above:Performed By: #### PT, PTT, LIPASE, CMP, HS TROP, CBC #### [place] [address] USABilirubin Test strip Ql (U)Ordered By: Sohail Figueroa on 96-18-2640Mjgrnpidh Ql (U)NegativeNegativeChildren'S Hospital For Rehabilitation Bilirubin.total [Mass/volume] in Serum or PlasmaOrdered By: Sohail Figueroa on 96-77-5002Vwzczukcr [Mass/Vol]0.6 mg/dLNormal0.3-1.0[facility] For RehabilitationComment on above:Performed By: #### PT, PTT, LIPASE, CMP, HS TROP, CBC #### [place] [address] USACT abdomen pelvis wo conon 83-75-6953TB abdomen pelvis wo [facility] [address] [place] [address] [place] [address] CT Scan Report Signed Patient: Marleni Dennis MR#: [id number] : 1950 Acct:[id number] Age/Sex: 74 / F ADM Date: 04/08/25 Loc: ER Room: Type: [facility] ER Attending Dr: Copies to: Sohail Figueroa [...] Garnett M.D. 04/08/2025 8:27 PM Dictation Location: [place] [address] Transcribed By: [facility] 04/08/252026 Dictated By: Derek Garnett DO 04/08/252018 Signed By: 04/08/252026NoFormerly [facility] Physician GroupCalcium [Mass/volume] in Serum or PlasmaOrdered By: Sohail Figueroa on 25-97-0245Imwgbcy [Mass/Vol]9.1 mg/dLNormal 8.6-10.3FKettering Health TroyComment on above:Performed By: #### PT, PTT, LIPASE, CMP, HS TROP, CBC #### [facility] [address] [place] [address] USACarbon dioxide, total [Moles/volume] in Serum or Plasma Ordered By: Sohail Figueroa on 50-72-4571QQ6 [Moles/Vol]25.2 mmol/AXdgjry01.0-31.0 [facility] For RehabilitationComment on above:Performed By: #### PT, PTT, LIPASE, CMP, HS TROP, CBC #### [facility] [address] [place] [address] USAChloride [Moles/volume] in Serum or PlasmaOrdered By: Sohail Figueroa on 29-67-1038Dysrteme [Moles/Vol]101 mmol/NYzsupw41-932KpevntzrnChildren'S Hospital For RehabilitationComment on above:Performed By: #### PT, PTT, LIPASE, CMP, HS TROP, CBC #### [facility] [address] [place] [address] USAColor of Urine by AutoOrdered By: Sohail Figueroa on 32-61-1998Sonqi (U)Light-yellowNormalYProMedica Bay Park Hospital Comment on above:Order Comment: Name Collection Type:: Clean-Voided Midstream Performed By: #### ADDONUAPLUS ####[facility] [address] [place] [address] USAComplete Blood Count Auto Diffon 06-76-1282Mbkz Corpuscular HGB Conc34.0 g/hTAkgdsi99.0-35.0The [facility] Physician GroupComment on above:Performed By: #### PT, PTT, LIPASE, CMP, HS TROP, CBC #### [facility] [address] [place] [address] USAMonocytes/100 WBC (Bld)17.55 %Normal0.00-20.00The [facility] Physician GroupComment on above:Performed By: #### PT, PTT, LIPASE, CMP, HS TROP, CBC #### [facility] [address] [place] [address] USANRBC%0.1 /100{WBC}Normal0-0.5The [facility] Comment on above:Performed By: #### PT, PTT, LIPASE, CMP, HS TROP, CBC #### [place] [address] USAWhite Blood Count4.4 [CFU]/mLNormal3.8-11.6The [facility] Physician GroupComment on above:Performed By: #### PT, PTT, LIPASE, CMP, HS TROP, CBC #### [facility] [address] [place] [address] USAComprehensive Metabolic Panelon 58-74-8984Jlvevlc [Mass/Vol]4.1 g/dLNormal3.5-5.7The [facility] Physician GroupComment on above: Performed By: #### PT, PTT, LIPASE, CMP, HS TROP, CBC #### [facility] [address] [place] [address] USACreatinine Clr Calc Vekmemfc62.34NormalThe [facility] Physician [facility] HospitalComment on above:Performed By: #### PT, PTT, LIPASE, CMP, HS TROP, CBC #### [facility] [address] [place] [address] USAGFR/1.73 sq M.predicted MDRD (S/P/Bld) [Vol rate/Area] 13.433 mL/min/{1.73_m2}NormalThe [facility] Physician [facility] HospitalComment on above: Performed By: #### PT, PTT, LIPASE, CMP, HS TROP, CBC #### [facility] [address] [place] [address] USACreatinine [Mass/volume] in Serum or PlasmaOrdered By: Sohail Figueroa on 60-96-5199Yekmzmxxyw [Mass/Vol]3.42 mg/dLHigh0.60-1.20[facility] For RehabilitationComment on above:Performed By: #### PT, PTT, LIPASE, CMP, HS TROP, CBC #### [facility] [address] [place] [address] USADipstick and Microscopicon 11-82-1926Amahnvum,UrineNone SeenNormalNone SeenThe [facility] Physician GroupComment on above:Order Comment: Name Collection Type:: Clean-Voided MidstreamPerformed By: #### ADDONUAPLUS ####[facility] [address] [place] [address] [place] Bilirubin,UrineNegativeNormalNegativeThe [facility] Physician GroupComment on above:Order Comment: Name Collection Type:: Clean-Voided MidstreamPerformed By: #### ADDONUAPLUS ####[address] [address] USAGlucose Ql (U)NormalNormalNormalThe [facility] Physician [facility] HospitalComment on above:Order Comment: Name Collection Type:: Clean-Voided MidstreamPerformed By: #### ADDONUAPLUS ####[address] [address] USAHyaline Casts,UrineNoneNormal0-8The [facility] Physician GroupComment on above:Order Comment: Name Collection Type:: Clean- Voided MidstreamResult Comment: PERFORMED BY: [place] [address] PATHOLOGIST IGNITION SPECIALIST ELIZABETH MOREL M.D.Performed By: #### ADDONUAPLUS ####[place] [address] USANitrite,UrineNegativeNormal NegativeBeraja Medical Institute Physician GroupComment on above:Order Comment: Name Collection Type:: Clean-Voided MidstreamPerformed By: #### ADDONUAPLUS ####[place] [address] USAOccult Blood,UrineNegativeNormalNegativeBeraja Medical Institute Physician GroupComment on above: Order Comment: Name Collection Type:: Clean-Voided MidstreamResult Comment: PERFORMED BY: [facility] [address] [place] [address] PATHOLOGIST IGNITION SPECIALIST ELIZABETH MOREL M.D.Performed By: #### ADDONUAPLUS ####[place] [place] [id number] USARBC,Afjbh8-6Hsbmcj1-7Glu [facility] Physician GroupComment on above:Order Comment: Name Collection Type:: Clean-Voided MidstreamPerformed By: #### ADDONUAPLUS ####[place] [id number] USASpecificy [place],Urine1.006 Normal1.001-1.030The [facility] Point Physician GroupComment on above:Order Comment: Name Collection Type:: Clean-Voided MidstreamPerformed By: #### ADDONUAPLUS ####[place] [address] [place] [id number] [place] Urobilinogen,UrineNormalNormalNormAdventHealth DeLand Physician GroupComment on above:Order Comment: Name Collection Type:: Clean-Voided MidstreamPerformed By: #### ADDONUAPLUS ####[address] [address] USAWBC,Axsxo8-4Xssppm6-4Teg [facility] Physician GroupComment on above: Order Comment: Name Collection Type:: Clean-Voided MidstreamPerformed By: #### ADDONUAPLUS ####[address] [address] [facility] CENTERECG 12 lead ECGon 69-98-5132KCP 12 lead ECGST. RITA'S [place] [address] Electrocardiograph Report Signed Patient: Marleni Dennis MR#: [id number] : 1950 Acct:[id number] Age/Sex: 74 / F ADM Date: 04/08/25 Loc: Room: [address] [place] [address] Type: ADM IN Attending Dr: Rajiv Trejo [...] fascicular block Confirmed by Evette Mari MD ([id number]) on 04/09/2025 7:24:05 AM Referred By: Electronically Signed By: Evette Mari MD Transcribed By: MUS Signed By Evette Mari MD 03/19 12/10 0724NormalThe [facility]lands Physician GroupEosinophils [#/volume] in Blood by Automated countOrdered By: Sohail Figueroa on 84-44-9604Kqpvgakbyew (Bld) [#/Vol] 0.1 10*3/uLNormal0.0-0.45Children[facility] Hospital For RehabilitationComment on above: Performed By: #### PT, PTT, LIPASE, CMP, HS TROP, CBC #### [facility] [address] [place] [address] USAEosinophils/100 leukocytes in Blood by Automated count Ordered By: Sohail Figueroa on 72-20-1020Bgoaksyjgfp/100 WBC (Bld)2.6 %Normal. [facility] Hospital For RehabilitationComment on above:Performed By: #### PT, PTT, LIPASE, CMP, HS TROP, CBC #### [facility] [address] [place] [address] USAEpithelial cells.squamous [#/area] in Urine sediment by Automated countOrdered By: Sohail Figueroa on 25-93-6008Akbuxejipl cells.squamous Auto (Urine sed) [#/Area]N/AFKettering Health TroyErythrocyte distribution width [Ratio] by Automated countOrdered By: Sohail Figueroa on 73-26-6600Jfbcxczyrvh distribution width (RBC) [Ratio]16.0 %High11.9-15.3 [facility] For RehabilitationComment on above:Performed By: #### PT, PTT, LIPASE, CMP, HS TROP, CBC #### [facility] [address] [place] [address] USAErythrocytes [#/area] in Urine sediment by Automated count Ordered By: Sohail Figueroa on 68-75-9886IPS Auto (Urine sed) [#/Area]1-2 [HPF]0-4 [facility] For RehabilitationErythrocytes [#/volume] in Blood by Automated countOrdered By: Sohail Figueroa on 88-47-1207GZE (Bld) [#/Vol]3.34 10*6/uLLow 3.60-5.00[facility] Hospital For RehabilitationComment on above:Performed By: #### PT, PTT, LIPASE, CMP, HS TROP, CBC #### [facility] [address] [place] [address] USAGlucose [Mass/volume] in Serum or PlasmaOrdered By: Sohail Figueroa on 73-66-6904Bsgsuun [Mass/Vol]110 mg/aSGvte56-712RoaujcyrvChildren'S Hospital For RehabilitationComment on above:ADA recommended reference rangeRandom Glucose Reference [...] PTT, LIPASE, CMP, HS TROP, CBC #### [place] [id number] USAGlucose [Mass/volume] in Urine by Test stripOrdered By: Sohail Figueroa on 70-48-7201Kpmjxsy Test strip (U) [Mass/Vol]Normal mg/dLNormal [facility] For RehabilitationHematocrit [Volume Fraction] of Blood by Automated countOrdered By: Sohail Figueroa on 92-29-5753Myloagsaax (Bld) [Volume fraction]29.5 %Low34.0-46.4FKettering Health TroyComment on above: Performed By: #### PT, PTT, LIPASE, CMP, HS TROP, CBC #### [facility] [address] [place] [address] USAHemoglobin Test strip Ql (U)Ordered By: Sohail Figueroa on 01-41-5179Ddnjdjzryy Ql (U)NegativeNegativeChildren'S Hospital For Rehabilitation Hemoglobin [Mass/volume] in BloodOrdered By: Sohail Figueroa on 04-08-2025 Hemoglobin (Bld) [Mass/Vol]10.0 g/dLLow11.8-15.4FKettering Health TroyComment on above:Performed By: #### PT, PTT, LIPASE, CMP, HS TROP, CBC #### [facility] [address] [place] [address] USAHyaline casts [#/area] in Urine sediment by Automated countOrdered By: Sohail Figueroa on 89-31-8768Hqtcgzy casts Auto (Urine sed) [#/Area]None [LPF]0-8Children[facility] Hospital For RehabilitationINR in Platelet poor plasma by Coagulation assayOrdered By: Sohail Figueroa on 08-29-4366DXK Coag (PPP) [Relative time]1.4 {INR}NormalChildren'S Hospital For RehabilitationComment on above: INR Therapeutic Range A) Pre- [...] PTT, LIPASE, CMP, HS TROP, CBC #### [facility] [address] [place] [address] USAKetones [Presence] in Urine by Test stripOrdered By: Sohail Figueroa on 41-06-9105Ubmilpz Ql (U)NegativeNormalNegAvita Health SystemComment on above:Order Comment: Name Collection Type:: Clean- Voided MidstreamPerformed By: #### ADDONUAPLUS ####[facility] [place] [id number] USALeukocyte esterase [Presence] in Urine by Test stripOrdered By: Sohail Figueroa on 41-56-8120Miwlgpndw esterase Test strip Ql (U)NegativeNormalNegAvita Health SystemComment on above:Order Comment: Name Collection Type:: Clean-Voided MidstreamPerformed By: #### ADDONUAPLUS ####[place] [address] [place] [id number] USALeukocytes [#/area] in Urine sediment by Automated countOrdered By: Sohail Figueroa on 86-20-4254UZR Auto (Urine sed) [#/Area]1-2 [HPF]0-4FKettering Health TroyLeukocytes [#/volume] corrected for nucleated erythrocytes in Blood by Automated counOrdered By: Sohail Figueroa on 57-33-7271JYV corrected for nucl RBC Auto (Bld) [#/Vol]4.4 10*3/uL3.8-11.6FKettering Health TroyLeukocytes [#/volume] in Blood by Automated countOrdered By: Sohail Figueroa on 19-74-6798NHX (Bld) [#/Vol]4.4 10*3/uLNormal3.8-11.6FKettering Health TroyComment on above:Performed By: #### PT, PTT, LIPASE, CMP, HS TROP, CBC #### [place] [id number] USALipase [Enzymatic activity/volume] in Serum or Plasma Ordered By: Sohail Figueroa on 80-97-5322Ynyuxm [Catalytic activity/Vol]110.0 U/L High11.0-82.0Children[facility] Hospital For RehabilitationComment on above:Result Comment: PERFORMED BY: [place] [address] PATHOLOGIST IGNITION SPECIALIST ELIZABETH MOREL M.D.Performed By: #### PT, PTT, LIPASE, CMP, HS TROP, CBC #### [facility] [address] [place] [address] USALymphocytes [#/volume] in Blood by Automated countOrdered By: Sohail Figueroa on 03-58-7902Dmjruxybhho (Bld) [#/Vol]1.0 10*3/uLNormal1.00-4.8 [facility] For RehabilitationComment on above:Performed By: #### PT, PTT, LIPASE, CMP, HS TROP, CBC #### [facility] [address] [place], [place] [id number] USALymphocytes/100 leukocytes in Blood by Automated count Ordered By: Sohail Figueroa on 61-26-4671Fcdenknfjye/100 WBC (Bld)23.3 %Normal. [facility] Hospital For RehabilitationComment on above:Performed By: #### PT, PTT, LIPASE, CMP, HS TROP, CBC #### [facility] [address] [Entitic mass] by Automated countOrdered By: Sohail Figueroa on 04-28-2519BFJ (RBC) [Entitic mass]30.1 eiJulnsu38.7-34.3FKettering Health TroyComment on above:Performed By: #### PT, PTT, LIPASE, CMP, HS TROP, CBC #### [facility] [address] Auto (RBC) [Mass/Vol]Ordered By: Sohail Figueroa on 14-87-0668QXHK (RBC) [Mass/Vol]34.0 g/dL32.0-35.0Children[facility] Hospital For RehabilitationMCV [Entitic volume] by Automated countOrdered By: Sohail Figueroa on 78-43-0763ZSW (RBC) [Entitic vol]88.4 wFBpsxvx25-518DkpmoayxmChildren'S Hospital For RehabilitationComment on above:Performed By: #### PT, PTT, LIPASE, CMP, HS TROP, CBC #### [facility] [address] [place] [address] USAMonocyte distribution width [Entitic volume] in Blood by AutomatedOrdered By: Sohail Figueroa on 01-92-0620Qvnscmjz distribution width Auto (Bld) [Entitic vol]17.55 %0.00-20.00[facility] Hospital For RehabilitationMonocytes [#/volume] in Blood by Automated countOrdered By: Sohail Figueroa on 04-08-2025 Monocytes (Bld) [#/Vol]0.4 10*3/uLNormal0.0-0.8[facility] Comment on above:Performed By: #### PT, PTT, LIPASE, CMP, HS TROP, CBC #### [facility] [address] [place] [address] USAMonocytes/100 leukocytes in Blood by Automated count Ordered By: Sohail Figueroa on 79-91-8879Deqitwqay/100 WBC (Bld)10.0 %Normal. [facility] Hospital For RehabilitationComment on above:Performed By: #### PT, PTT, LIPASE, CMP, HS TROP, CBC #### [facility] [address] [place] [address] USANeutrophils [#/volume] in Blood by Automated countOrdered By: Sohail Figueroa on 61-81-6865Yksxtuykpqa (Bld) [#/Vol]2.8 10*3/uLNormal1.8-7.7 [facility] For RehabilitationComment on above:Performed By: #### PT, PTT, LIPASE, CMP, HS TROP, CBC #### [facility] [address] [place] [address] USANeutrophils/100 leukocytes in Blood by Automated count Ordered By: Sohail Figueroa on 19-88-9864Ygkldcfzeyc/100 WBC (Bld)63.1 %Normal. [facility] For RehabilitationComment on above:Performed By: #### PT, PTT, LIPASE, CMP, HS TROP, CBC #### [facility] [address] [place] [address] USANitrite Test strip Ql (U)Ordered By: Sohail Figueroa on 96-36-0453Wjjqszv Ql (U)NegativeNegativeChildren'S Hospital For RehabilitationNo Panel InformationOrdered By: Sohail Figueroa on 09-12-9361Hwbdqbleo GFR (CKD-EPI) 13.433 mL/MinChildren'S Hospital For RehabilitationPharmacy Creatinine Clearance (Chem12.34Children[facility]S Hospital For RehabilitationNucleated erythrocytes [Presence] in Blood by Automated countOrdered By: Sohail Figueroa on 40-97-6060Zhuyrrdqd RBC Auto Ql (Bld)0.1 /100{WBC}0-0.5FKettering Health TroyPartial Thromboplastin Timeon 92-99-8470aJLO Coag (Bld) [Time]31.6 kLeusao05.1-36.5The [facility] Physician GroupComment on above:Result Comment: A hematocrit value greater than 55% may lead to inaccurate results in coagulation testing. Patients having hematocrit values >55% require a special collection tube for coagulation studies. Please contact the laboratory at [phone] for redraw instructions. PERFORMED BY: [facility] [address] [place] [address] PATHOLOGIST IGNITION SPECIALIST ELIZABETH MOREL M.D.Performed By: #### PT, PTT, LIPASE, CMP, HS TROP, CBC #### [facility] [address] [place] [address] USAPlatelet mean volume [Entitic volume] in Blood by Automated countOrdered By: Sohail Figueroa on 34-91-5643Dvofgico mean volume (Bld) [Entitic vol]9.5 fLNormal6.3-10.7FKettering Health TroyComment on above:Performed By: #### PT, PTT, LIPASE, CMP, HS TROP, CBC #### [place] [address] USAPlatelets [#/volume] in Blood by Automated countOrdered By: Sohail Figueroa on 65-06-2967Rdyfnduik (Bld) [#/Vol]211 10*3/dJNoacer516-475 [facility] For RehabilitationComment on above:Performed By: #### PT, PTT, LIPASE, CMP, HS TROP, CBC #### [place] [address] USAPotassium [Moles/volume] in Serum or PlasmaOrdered By: Sohail Figueroa on 54-15-6406Jtrcpvtqg [Moles/Vol]4.3 mmol/LNormal3.5-5.1FKettering Health TroyComment on above:Performed By: #### PT, PTT, LIPASE, CMP, HS TROP, CBC #### [place] [address] USAProtein [Mass/volume] in Serum or PlasmaOrdered By: Sohail Figueroa on 56-60-8585Qyzmsjj [Mass/Vol]7.1 g/dLNormal6.4-8.9[facility] For RehabilitationComment on above:Performed By: #### PT, PTT, LIPASE, CMP, HS TROP, CBC #### [place] [address] USAProtein [Mass/volume] in Urine by Test stripOrdered By: Sohail Figueroa on 05-01-1560Wyiklza (U) [Mass/Vol]50 mg/dLNormalNegativeChildren'S Hospital For RehabilitationComment on above:Order Comment: Name Collection Type:: Clean-Voided MidstreamPerformed By: #### ADDONUAPLUS ####[facility] [address] [place] [id number] USAProthrombin time (PT)Ordered By: Sohail Figueroa on 25-72-7418KB Coag (PPP) [Time]16.2 sHigh9.0-12.9[facility] Hospital For RehabilitationComment on above:A hematocrit value greater than 55% may lead to inaccurate results in coagulation testing. Patientshaving hematocrit values >55% require a special collection tube for coagulation studies. Please c ontact the laboratory at [phone] for redraw instructions.Result Comment: A hematocrit value greater than 55% may lead to inaccurate results in coagulation testing. Patients having hematocrit values >55% require a special collection tube for coagulation studies. Please contact the laboratory at [phone] for redraw instructions.Performed By: #### PT, PTT, LIPASE, CMP, HS TROP, CBC #### [facility] [address] [place] [id number] USASerum globulin measurement by calculation (mass/volume) Ordered By: Sohail Figueroa on 78-23-8868Wblbzkyq (S) [Mass/Vol]3.0 g/dLNormal [facility] For RehabilitationComment on above:Performed By: #### PT, PTT, LIPASE, CMP, HS TROP, CBC #### [facility] [address] [place] [address] USASerum or plasma albumin/globulin mass ratioOrdered By: Sohail Figueroa on 21-29-6006Vyhbpol/Globulin [Mass ratio]1.4 {ratio}Normal [facility] For RehabilitationComment on above:Performed By: #### PT, PTT, LIPASE, CMP, HS TROP, CBC #### [facility] [address] [place] [id number] USASerum or plasma anion gap determinationOrdered By: Sohail Figueroa on 34-69-8146Lnnup gap [Moles/Vol]15.1 mmol/LHigh6.0-15.0[facility] For RehabilitationComment on above:Performed By: #### PT, PTT, LIPASE, CMP, HS TROP, CBC #### [place] [id number] USASodium [Moles/volume] in Serum or PlasmaOrdered By: Sohail Figueroa on 73-32-2968Snboim [Moles/Vol]137 mmol/FSeqsxb489-084AoesbmyxmChildren'S Hospital For RehabilitationComment on above:Performed By: #### PT, PTT, LIPASE, CMP, HS TROP, CBC #### [facility] [address] [place] [id number] USASpecific gravity Test strip (U) [Rel density]Ordered By: Sohail Figueroa on 75-83-2170Yzawhnnq gravity (U) [Rel density]1.0061.001-1.030 [facility] For RehabilitationTroponin I High Sensitivityon 04-08-2025 Troponin I High Rotxpkgtjck02Vyfr8-25Qcr [facility] Physician GroupComment on above:Result Comment: The Troponin units of report have been changed to meet the Chest Pain Accreditation requirement, element EC5.M1l2. Troponin units are changed from pg/ml to ng/L. Also, the decimal is removed and results are in whole numbers. PERFORMED BY: [place] [address] PATHOLOGIST IGNITION SPECIALIST ELIZABETH MOREL M.D.Performed By: #### PT, PTT, LIPASE, CMP, HS TROP, CBC #### [place] [address] USATroponin I.cardiac [Mass/volume] in Serum or Plasma by Detection limit <= 0.01 ng/mLOrdered By: Sohail Figueroa on 38-54-1233Nizeqplc I.cardiac DL <= 0.01 ng/mL [Mass/Vol]25 ng/LHigh0-15[facility] For RehabilitationComment on above:The Troponin units of report have been changed to meet the Chest Pain Accreditation requirement, element EC5.M1l2. Troponin units are changed from pg/ml to ng/L. Also, the decimal is removed and results are in whole numbers.Type and Screenon 52-04-9357YWH and Rh group Nom (Bld)Blood group AB Rh(D) positiveNoFormerly [facility] Physician GroupComment on above:Result Comment: PERFORMED BY: [place] [address] PATHOLOGIST IGNITION SPECIALIST ELIZABETH MOREL M.D.Urea nitrogen [Mass/volume] in Serum or PlasmaOrdered By: Sohail Figueroa on 37-38-7407Xyyr nitrogen [Mass/Vol]71 mg/dLNew [facility] Hospital-[address] [place], [place] [address]Comment on above:Performed By: #### PT, PTT, LIPASE, CMP, HS TROP, CBC #### [facility] [address] [place] [address] USAUrobilinogen Test strip (U) [Mass/Vol]Ordered By: Sohail Figueroa on 77-07-8579Hkpmihwdcelv (U) [Mass/Vol]Normal mg/dLNormThe University of Toledo Medical CenterX-ray reportOrdered By: Derek Garnett on 13-65-8276Lgthj reportST. RITA'S [facility]OSPITAL Main [place] [address] [place] [address] XRay Report Signed Patient: Marleni Dennis MR#: [id number] : 1950 Acct:[id number] Age/Sex: 74 / F ADM Date: 5 Loc: ER Room: Type: [facility] ER Attending Dr: Copies to: Sohail Figueroa [...] Garnett M.D. 04/08/2025 8:43 PM Dictation Location: RADIO-PC-20 Transcribed By: PATTI 04/08/252042 Dictated By: Derek Garnett DO 04/08/252038 Signed By: 04/08/252042 [facility] For RehabilitationXR chest 2V*on 33-81-8682SZ chest 2V*[facility] Main [place] [address] [place] [address] XRay Report Signed Patient: Marleni Dennis MR#: [id number] : 1950 Acct:[id number] Age/Sex: 74 / F ADM Date: 04/08/25 Loc: ER Room: Type: [facility] ER Attending Dr: Copies to: Sohail Figueroa [...] Garnett M.D. 04/08/2025 8:43 PM Dictation Location: RADIO-PC-20 Transcribed By: PATTI 04/08/252042 Dictated By: Derek Garnett DO 04/08/252038 Signed By: 04/08/252042[facility] Physician GroupaPTT in Platelet poor plasma by Coagulation assayOrdered By: Sohail Figueroa on 13-50-4974yWCU Coag (PPP) [Time] 31.6 s25.1-36.5FKettering Health TroyComment on above:A hematocrit value greater than 55% may lead to inaccurate results in coagulation testing. Patientshaving hematocrit values >55% require a special collection tube for coagulation studies. Please contact the laboratory at [phone] for redraw instructions.pH of Urine by Test stripOrdered By: Sohail Figueroa on 53-10-1830gH (U)6.5 [pH]Normal5.0-9.0[facility] For RehabilitationComment on above:Order Comment: Name Collection Type:: Clean-Voided MidstreamPerformed By: #### ADDONUAPLUS ####[facility] [address] [place] [address] USACBC (INCLUDES DIFF/PLT)on 27-67-1970Lipigdvyw (Bld) [#/Vol]0.02 10*3/uL Normal0-200Quest DiagnosticsComment on above:Performed By: #### 3020, [address], %SBCULI, 6399 #### [facility] [address], [address] [place] [address] Machine Hose Cutter: Figueroa Jacques MDBasophils/100 WBC (Bld)0.5 %NormalQuest DiagnosticsComment on above:Performed By: #### 3020, [address], %SBCULI, 6399 #### [facility] [address], [address] [place] [address] Machine Hose Cutter: Figueroa Jacques MDEosinophils (Bld) [#/Vol]0.121 10*3/uLNormal 15-500Quest DiagnosticsComment on above:Performed By: #### 3020, [address]39, %SBCULI, 6399 #### [facility] [address], [address] [place] [address] Machine Hose Cutter: Figueroa Jacques MDEosinophils/100 WBC (Bld)3.1 %NormalQuest DiagnosticsComment on above:Performed By: #### 3020, 379[address], %SBCULI, 6399 #### [facility] [place] [address] Machine Hose Cutter: Figueroa Jacques MDErythrocyte distribution width (RBC) [Ratio] 15.8 %High11.0-15.0Quest DiagnosticsComment on above:Performed By: #### 3020, 55298, %SBCULI, 6399 #### [facility] of [address], [address] [place] [address] Machine Hose Cutter: Figueroa Jacques MDHematocrit (Bld) [Volume fraction]27.4 %Low 35.0-45.0Quest DiagnosticsComment on above:Performed By: #### 3020, 18262, %SBCULI, 6399 #### [facility] of [address], [address] [place] [address] Machine Hose Cutter: Figueroa Jacques MDHemoglobin (Bld) [Mass/Vol]8.7 g/dLLow 11.7-15.5Quest DiagnosticsComment on above:Performed By: #### 3020, 02226, %SBCULI, 6399 #### [facility] of [address], [address] [place] [address] Machine Hose Cutter: Figueroa Jacques MDLymphocytes (Bld) [#/Vol]0.94 10*3/uLNormal 850-3900Quest DiagnosticsComment on above:Performed By: #### 3020, 29965, %SBCULI, 6399 #### [facility] of [place] [address] Machine Hose Cutter: Figueroa Jacques MDLymphocytes/100 WBC (Bld)24.1 %NormalQuest DiagnosticsComment on above:Performed By: #### 3020, 79653, %SBCULI, 6399 #### [facility] of [place] [address] Machine Hose Cutter: Figueroa Jacques MDMCH (RBC) [Entitic mass]29.6 qvJtirqw66.0-33.0 Quest DiagnosticsComment on above:Performed By: #### 3020, 52264, %SBCULI, 6399 #### [facility] of [address], [address] [place] [address] Machine Hose Cutter: Figueroa Jacques MDMCHC (RBC) [Mass/Vol]31.8 g/dLLow32.0-36.0 Quest DiagnosticsComment on above:Result Comment: For adults, a slight decrease in the calculated MCHC value (in the range of 30 to 32 g/dL) is most likely not clinically significant; however, it should be interpreted with caution in correlation with other red cell parameters and the patient's clinical condition.Performed By: #### 3020, 96086, %SBCULI, 6399 #### [facility] of [place] [address] Machine Hose Cutter: Figueroa CEVALLOSCV (RBC) [Entitic vol]93.2 oDUtywjh28.0-100.0 Quest DiagnosticsComment on above:Performed By: #### 3020, 76061, %SBCULI, 6399 #### [facility] of [place] [address] Machine Hose Cutter: Figueroa Jacques MDMonocytes (Bld) [#/Vol]0.507 10*3/uLNormal 200-950Quest DiagnosticsComment on above:Performed By: #### 3020, 62589, %SBCULI, 6399 #### [facility] of [place] [address] Machine Hose Cutter: Figueroa Jacques MDMonocytes/100 WBC (Bld)13.0 %NormalQuest DiagnosticsComment on above:Performed By: #### 3020, 14268, %SBCULI, 6399 #### [facility] of [place] [address] Machine Hose Cutter: Figueroa Jacques MDNeutrophils (Bld) [#/Vol]2.313 10*3/uLNormal 1500-7800Quest DiagnosticsComment on above:Performed By: #### 3020, 67567, %SBCULI, 6399 #### [facility] of [place] [address] Machine Hose Cutter: Figueroa Jacques MDNeutrophils/100 WBC (Bld)59.3 %NormalQuest DiagnosticsComment on above:Performed By: #### 3020, 98822, %SBCULI, 6399 #### [facility] of [address], [address] [place] [address] Machine Hose Cutter: Figueroa Jacques MDPlatelet mean volume (Bld) [Entitic vol]11.3 fLNormal7.5-12.5Quest DiagnosticsComment on above:Performed By: #### 3020, 18671, %SBCULI, 6399 #### [facility] of [address], [address] [place] [address] Machine Hose Cutter: Figueroa Jacques MDPlatelets (Bld) [#/Vol]188 10*3/uLNormal 140-400Quest DiagnosticsComment on above:Performed By: #### 3020, 29739, %SBCULI, 6399 #### [facility] of [address], [address] [place] [address] Machine Hose Cutter: Figueroa Jacques MDRBC (Bld) [#/Vol]2.94 10*6/uLLow3.80-5.10Quest DiagnosticsComment on above:Performed By: #### 3020, 93475, %SBCULI, 6399 #### [facility] of [address], [address] [place] [address] Machine Hose Cutter: Figueroa Jacques MDWBC (Bld) [#/Vol]3.9 10*3/uLNormal3.8-10.8 Quest DiagnosticsComment on above:Performed By: #### 3020, 50750, %SBCULI, 6399 #### [facility] of [address], [address] [place] [address] Machine Hose Cutter: iFgueroa Jacques MDCOMPREHENSIVE METABOLIC PANELon 04-04-2025 Albumin [Mass/Vol]3.6 g/dLNormal3.6-5.1Quest DiagnosticsComment on above: Performed By: #### 3020, 51824, %SBCULI, 6399 #### [facility] of [address], [address] [place] [address] Machine Hose Cutter: Figueroa Jacques MDAlbumin/Globulin [Mass ratio]1.4 {ratio}Normal 1.0-2.5Quest DiagnosticsComment on above:Performed By: #### 3020, 10157, %SBCULI, 6399 #### [facility] of [address], [address] [place] [address] Machine Hose Cutter: Figueroa Jacques MDALP [Catalytic activity/Vol]37 U/HNspjdj06-697 Quest DiagnosticsComment on above:Performed By: #### 3020, 51134, %SBCULI, 6399 #### [facility] of [place] [address] Machine Hose Cutter: Figueroa Jacques MDALT [Catalytic activity/Vol]5 U/LLow6-29Quest DiagnosticsComment on above:Performed By: #### 3020, 09774, %SBCULI, 6399 #### [facility] of [place] [address] Machine Hose Cutter: Figueroa Jacques MDAST [Catalytic activity/Vol]15 U/VFxuzmc13-39 Quest DiagnosticsComment on above:Performed By: #### 3020, 66885, %SBCULI, 6399 #### [facility] of [place] [address] Machine Hose Cutter: Figueroa Jacques MDBilirubin [Mass/Vol]0.6 mg/dLNormal0.2-1.2 Quest DiagnosticsComment on above:Performed By: #### 3020, 25792, %SBCULI, 6399 #### [facility] of [place] [address] Machine Hose Cutter: Figueroa Jacques MDCalcium [Mass/Vol]8.8 mg/dLNormal8.6-10.4Quest DiagnosticsComment on above:Performed By: #### 3020, 12292, %SBCULI, 6399 #### [facility] [place] [address] Machine Hose Cutter: Figueroa Jacques MDChloride [Moles/Vol]98 mmol/SLofgtw57-299Nzafy DiagnosticsComment on above:Performed By: #### 3020, 22276, %SBCULI, 6399 #### [facility] of [address], [address] [place] [address] Machine Hose Cutter: Figueroa Jacques MDCO2 [Moles/Vol]25 mmol/QTaenjj83-41Hrzsb DiagnosticsComment on above:Performed By: #### 3020, 06710, %SBCULI, 6399 #### [facility] [place] [address] Machine Hose Cutter: Figueroa OCHOAreatinine [Mass/Vol]4.59 mg/dLHigh0.60-1.00 Quest DiagnosticsComment on above:Performed By: #### 3020, 11238, %SBCULI, 6399 #### [facility] [place] [address] Machine Hose Cutter: Figueroa Jacques MDGFR/1.73 sq M.predicted among non-blacks MDRD (S/P/Bld) [Vol rate/Area]9 mL/min/{1.73_m2}Low> OR = 60Quest DiagnosticsComment on above:Performed By: #### 3020, 55367, %SBCULI, 6399 #### [facility] [place] [address] Machine Hose Cutter: Figueroa Jacques MDGlobulin (S) [Mass/Vol]2.5 g/dLNormal1.9-3.7 Quest DiagnosticsComment on above:Performed By: #### 3020, 07535, %SBCULI, 6399 #### [facility] [place] [address] Machine Hose Cutter: Figueroa Jacques MDGlucose [Mass/Vol]96 mg/fAKkddpj19-30Nfswl DiagnosticsComment on above:Result Comment: Fasting reference intervalPerformed By: #### 3020, 13161, %SBCULI, 6399 #### [facility] [place] [address] Machine Hose Cutter: Figueroa Jacques MDPotassium [Moles/Vol]3.8 mmol/LNormal3.5-5.3 Quest DiagnosticsComment on above:Performed By: #### 3020, 01557, %SBCULI, 6399 #### [facility] [place] [address] Machine Hose Cutter: Figueroa Jacques MDProtein [Mass/Vol]6.1 g/dLNormal6.1-8.1Quest DiagnosticsComment on above:Performed By: #### 3020, 78096, %SBCULI, 6399 #### [facility] [place] [address] Machine Hose Cutter: Figueroa Jacques MDSodium [Moles/Vol]136 mmol/GCbainq842-316Vwdwv DiagnosticsComment on above:Performed By: #### 3020, 40789, %SBCULI, 6399 #### [facility] [place] [address] Machine Hose Cutter: Figueroa Jacques MDUrea nitrogen [Mass/Vol]69 mg/dLHigh7-25Quest DiagnosticsComment on above:Performed By: #### 3020, 54942, %SBCULI, 6399 #### [facility] [place] [address] Machine Hose Cutter: Figueroa Jacques MDUrea nitrogen/Creatinine [Mass ratio]15 mg/mg Normal6-22Quest DiagnosticsComment on above:Performed By: #### 3020, 72863, %SBCULI, 6399 #### [facility] [place] [address] Machine Hose Cutter: Figueroa Jacques MDCULTURE, URINE, ROUTINEon 66-90-7108PZHFTAL, URINE, ROUTINESEE NOTENormalQuest DiagnosticsComment on above:Result Comment: CULTURE, URINE, ROUTINE Micro Number: [id number] Test Status: Final Specimen Source: Urine Specimen Quality: Adequate Result: Less than 10,000 CFU/mL of single Gram positive organism isolated. No further testing will be performed. If clinically indicated, recollection using a method to minimize contamination, with prompt transfer to Urine Culture Transport Tube, is recommended.Performed By: #### 3020, 26011, %SBCULI, 6399 #### [facility] [place] [address] Machine Hose Cutter: Figueroa Jacques MDOffice Visiton [id number]-up visit [id number] Marleni Dennis 1950 F Date Provider Department Boelus 04/04/2025 [id number], ADAM CARD [facility] Family History Problem Relation Age of Onset Coronary artery disease Mother Stroke Mother Coronary artery disease Father Ovarian cancer Sister Family Status - Relation Status Age at Mother Father Sister Level of Service:89959 SC OFFICE/OUTPATIENT ESTABLISHED MOD [facility]DM [facility]REF[facility] CULTUREon 29-96-8604OANKZYWSG URINE CULTURENormalQuest DiagnosticsComment on above:Result Comment: CULTURE INDICATED - RESULTS TO FOLLOWPerformed By: #### 3020, 77689, %SBCULI, 6399 #### [facility] [place] [address] Machine Hose Cutter: Figueroa Jacques MDURINALYSIS, COMPLETE W/REFLEX TO CULTUREon 86-90-8513Liexdxxzeq (U)CLOUDYAbnormalCLEARQuest DiagnosticsComment on above: Performed By: #### 3020, 51384, %SBCULI, 6399 #### [facility] [place] [address] Machine Hose Cutter: Figueroa Jacques MDBACTERIANONVirginia SEENNormalNONE SEENQuest DiagnosticsComment on above:Performed By: #### 3020, 82695, %SBCULI, 6399 #### [facility] [address] , [address] [place] [address] Machine Hose Cutter: Figueroa Jacques MDBilirubin Ql (U)NegativeNormalNEGATIVEQuest DiagnosticsComment on above:Performed By: #### 3020, 31449, %SBCULI, 6399 #### [facility] [place] [address] [address] , [address] [place] [address] Machine Hose Cutter: Figueroa OCHOAolor (U)YELLOWNormalYELLOWQuest [facility]ostics Comment on above:Performed By: #### 3020, 41385, %SBCULI, 6399 #### [facility] of [address], [address] [place] [address] Machine Hose Cutter: Figueroa Jacques MDGlucose Ql (U)NegativeNormalNEGATIVEQuest DiagnosticsComment on above:Performed By: #### 3020, 09989, %SBCULI, 6399 #### [facility] of [address], [address] [place] [address] Machine Hose Cutter: Figueroa Jacques MDHYALINE CCGN30-18KcxychtkPTIP SEENQuest DiagnosticsComment on above:Performed By: #### 3020, 91020, %SBCULI, 6399 #### [facility] [place] [address] Machine Hose Cutter: Figueroa Jacques MDKetones Ql (U)NegativeNormalNEGATIVEQuest DiagnosticsComment on above:Performed By: #### 3020, 02424, %SBCULI, 6399 #### [facility] [place] [address] [address] [place] [address] Machine Hose Cutter: Figueroa Jacques MDLeukocyte esterase Test strip Ql (U)TRACE AbnormalNEGATIVEQuest DiagnosticsComment on above:Performed By: #### 3020, 24276, %SBCULI, 6399 #### [facility] [place] [address] [address] , [address] [place] [address] Machine Hose Cutter: Figueroa Jacques MDNitrite Ql (U)NegativeNormalNEGATIVEQuest DiagnosticsComment on above:Performed By: #### 3020, 88174, %SBCULI, 6399 #### [facility] [place] [address] Machine Hose Cutter: Figueroa Jacques MDNOTENormalQuest DiagnosticsComment on above: Result Comment: This urine was analyzed for the presence of WBC, RBC, bacteria, casts, and other formed elements. Only those elements seen were reported.Performed By: #### 3020, 94634, %SBCULI, 6399 #### [facility] [place] [address] Machine Hose Cutter: Figueroa Jacques MDOCCULT BLOODNegativeNormalNEGATIVEQuest DiagnosticsComment on above:Performed By: #### 3020, 97293, %SBCULI, 6399 #### [facility] [place] [address] Machine Hose Cutter: Figueroa Jacques MDpH (U)5.5 [pH]Normal5.0-8.0[facility] Comment on above:Performed By: #### 3020, 79883, %SBCULI, 6399 #### [facility] [place] [address] Machine Hose Cutter: Figueroa POWELLrotein Ql (U)3+AbnormalNEGATIVEQuest DiagnosticsComment on above:Performed By: #### 3020, 07401, %SBCUSUZIE, 6399 #### [facility] [place] [address] Machine Hose Cutter: Figueroa Jacques MDRBCNONE SEENNormal< OR = 2[facility] Comment on above:Performed By: #### 3020, 51800, %SBCULI, 6399 #### [facility] [place] [address] Machine Hose Cutter: Figueroa Jacques MDSpecific gravity (U) [Rel density]1.010Normal 1.001-1.035Quest DiagnosticsComment on above:Performed By: #### 3020, 59396, %SBCULI, 6399 #### [facility] [place] [address], [address] [place] [address] Machine Hose Cutter: Figueroa Jacques MDSQUAMOUS EPITHELIAL CELLS0-5Normal< OR = 5 Quest DiagnosticsComment on above:Performed By: #### 3020, 80354, %SBCULI, 6399 #### [facility] [place] [address], [address] [place] [address] Machine Hose Cutter: Figueroa Jacques MDWBC0-5Normal< OR = 5Quest DiagnosticsComment on above:Performed By: #### 3020, 30468, %SBCULI, 6399 #### [facility] of [address], [address] [place] [address] Machine Hose Cutter: Figueroa Jacques MD30on 52-38-960676Utx patient is Moderately Stable - Low risk of patient condition declining or worsening The patient's goals for the shift include rest The clinical goals for the shift include vssNormalUniversity of Ballinger Memorial Hospital DistrictBASIC METABOLIC PANELon 13-89-1299Nwnvp gap [Moles/Vol]13 mmol/LNormal7-20 [facility]uder HospitalComment on above:Performed By: #### [id number] ####[facility])[address] [place], [place] [address]Nnpiwev [Mass/Vol]8.3 mg/dLLow8.6-10.3UnSelect Medical Specialty Hospital - Southeast OhioComment on above:Performed By: #### [id number] ####[facility])[address] [place], [place] [address]Bnbijaec [Moles/Vol]106 mmol/CSttvhv34-043TpnnuncrteSelect Medical Specialty Hospital - Southeast OhioComment on above:Performed By: #### [id number] ####[facility] ([facility])[address] [place], [place] [address]UP5 [Moles/Vol]21 mmol/LNormal 21-31UnSelect Medical Specialty Hospital - Southeast OhioComment on above:Performed By: #### [id number] ####[facility] ([facility])[address] [place] [address]Sgakcvfspn [Mass/Vol]3.69 mg/dLHigh0.60-1.20UnSelect Medical Specialty Hospital - Southeast OhioComment on above:Performed By: #### [id number] ####[facility] ([facility])[address] [place] [address]FYOLSYBZBS FILTRATION RATE ML/MIN/1.73 SQ M.MMIWXTKXV05.3 mL/min/1.73m*2Low>60.0UnSelect Medical Specialty Hospital - Southeast OhioComment on above:Result Comment: [facility]???s estimated glomerular filtration rate (eGFR) will [...] anyone group of individuals.Performed By: #### [id number] ####[facility] ([facility])[address] [place] [address]Fukreep [Mass/Vol]82 mg/dMAelvco48-790QzcdgypowxSelect Medical Specialty Hospital - Southeast OhioComment on above:Performed By: #### [id number] ####[facility] ([facility])[address] [place] [address]Oljykgpxi [Moles/Vol]5.1 mmol/LNormal3.5-5.1UnSelect Medical Specialty Hospital - Southeast OhioComment on above:Performed By: #### [id number] ####[facility] ([facility])[address] [place] [address] Sodium [Moles/Vol]135 mmol/QRjf220-110NdbamoydraSelect Medical Specialty Hospital - Southeast OhioComment on above:Performed By: #### [id number] ####[facility] ([facility])[address] [place] [address]Rwly nitrogen [Mass/Vol]85 mg/dLHigh7-25UnSelect Medical Specialty Hospital - Southeast OhioComment on above:Performed By: #### [id number] ####[facility] ([facility])[address] [place] [address]YLOE NITROGEN/CREATININE (MASS RATIO) IN SER/PLAS23.0NormalUniversSheltering Arms HospitalComment on above: Performed By: #### [id number] ####[facility] ([facility])[address] [place] [address]OMU WITH AUTO DIFFERENTIALon 45-20-6702Umkdgsprfbb distribution width (RBC) [Ratio]16.5 %High11.5-15.0UnSelect Medical Specialty Hospital - Southeast OhioComment on above:Performed By: #### [id number] #### [facility] ([facility]) [address] [place] [address]BNEYZLCJLAD MEAN CORPUSCULAR HEMOGLOBIN CONCENTRATION (G/DL) BY BJYOSBDJU24.0 g/pFGoxyxn66.0-35.0UnSelect Medical Specialty Hospital - Southeast OhioComment on above:Performed By: #### [id number] #### [facility] ([facility]) [address] [place] [address]Hxxxedfdda (Bld) [Volume fraction]27.6 %Low36.0-45.0UnSelect Medical Specialty Hospital - Southeast OhioComment on above:Performed By: #### [id number] #### [facility] ([facility]) [address] [place] [address]Ssxhjkbjqf (Bld) [Mass/Vol]9.1 g/dLLow12.0-15.0UnSelect Medical Specialty Hospital - Southeast OhioComment on above:Performed By: #### [id number] #### [facility] ([facility]) [address] [place] [address]GPTHEFYB PLATELET FRACTION %5.6 %Normal0.8-6.3UnSelect Medical Specialty Hospital - Southeast OhioComment on above:Performed By: #### [id number] #### [facility] ([facility]) [address] [place] [address]DYY (RBC) [Entitic mass]29.5 miIkldwq43.0-33.0UnSelect Medical Specialty Hospital - Southeast OhioComment on above:Performed By: #### [id number] #### [facility] ([facility]) [address] [place] [address]YLC (RBC) [Entitic vol]89.6 pRWkughp05.0-98.0UnSelect Medical Specialty Hospital - Southeast OhioComment on above:Performed By: #### [id number] #### [facility] ([facility]) [address] [facility] [place], [place] [address]GFSL (PER 100 WBCS) BY AUTOMATED COUNT0.0 %Dxsgas0TowprwfricSelect Medical Specialty Hospital - Southeast OhioComment on above:Performed By: #### [id number] #### [facility] ([facility]) [address] [place], [place] [address]KETXYUKTX (10*3/UL) IN BLOOD AUTOMATED [id number] 10*3/uLLow 150-400UnSelect Medical Specialty Hospital - Southeast OhioComment on above:Performed By: #### [id number] #### [facility] ([facility]) [address] [place], [place] [address]YXI (Bld) [#/Vol]3.08 10*6/uLLow3.80-5.00UnSelect Medical Specialty Hospital - Southeast OhioComment on above:Performed By: #### [id number] #### [facility] ([facility]) [address] [place], [place] [address]GHU (Bld) [#/Vol]4.82 10*3/uLNormal4.00-10.60UnSelect Medical Specialty Hospital - Southeast OhioComment on above:Performed By: #### [id number] #### [facility] ([facility]) [address] [place], [place] [address]RKLSJP DIFFERENTIALon 35-57-2141THAECHXYA (10*3/UL) IN BLOOD BY CALCULATION0.04 10*3/uLNormal0.00-0.20UnSelect Medical Specialty Hospital - Southeast OhioComment on above:Performed By: #### [id number] ####[facility] ([facility])[address] [place], [place] [address]XWLHSOATO/100 LEUKOCYTES IN BLOOD BY AUTOMATED COUNT0.8 %Normal0.0-1.0Magruder HospitalComment on above: Performed By: #### [id number] ####[facility] ([facility])[address] [place] [address]ERLKGZPPTEO (10*3/UL) IN BLOOD BY CALCULATION0.21 10*3/uL Normal0.00-0.50UnSelect Medical Specialty Hospital - Southeast OhioComment on above:Performed By: #### [id number] ####[facility] ([facility])[address] [place] [address] EOSINOPHILS/100 LEUKOCYTES IN BLOOD BY AUTOMATED COUNT4.4 %Normal0.0-6.0 [facility]uder HospitalComment on above:Performed By: #### [id number] ####[facility] ([facility])[address] [place] [address]ACWXCHYO GRANULOCYTES (10*3/UL) IN BLOOD BY CALCULATION0.03 10*3/uLNormal0.00-0.20 [facility] HospitalComment on above:Performed By: #### [id number] ####[facility] ([facility])[address] [place] [address]RFOEKZKS GRANULOCYTES/100 LEUKOCYTES IN BLOOD BY AUTOMATED COUNT0.6 %Normal0.0-1.0 [facility] HospitalComment on above:Performed By: #### [id number] ####[facility] ([facility])[address] [place], [place] [address]CZBKEOIWGPI (10*3/UL) IN BLOOD BY CALCULATION1.64 10*3/uLNormal1.20-4.00UnSelect Medical Specialty Hospital - Southeast OhioComment on above:Performed By: #### [id number] ####[facility] ([facility])[address] [place], [place] [address]TZZJCBKRGBZ/100 LEUKOCYTES IN BLOOD BY AUTOMATED COUNT34.0 %Epwyjd43.0-45.0[facility] Comment on above:Performed By: #### [id number] ####[facility] ([facility])[address] [place], [place] [address]DAJDQDJOU (10*3/UL) IN BLOOD BY CALCUATION0.52 10*3/uLNormal0.10-1.00UnSelect Medical Specialty Hospital - Southeast OhioComment on above: Performed By: #### [id number] ####[facility] ([facility])[address] [place], [place] [address]DUMHLTTUJ/100 LEUKOCYTES IN BLOOD BY AUTOMATED COUNT10.8 % Normal5.0-12.0UnSelect Medical Specialty Hospital - Southeast OhioComment on above:Performed By: #### [id number] ####[facility] ([facility])[address] [place] [address] NEUTROPHILS (10*3/UL) IN BLOOD BY CALCULATION2.4 10*3/uLNormal1.6-7.6UnSelect Medical Specialty Hospital - Southeast OhioComment on above:Performed By: #### [id number] ####[facility] ([facility])[address] [place], [place] [address]BXAWOLTANIH/100 LEUKOCYTES IN BLOOD BY AUTOMATED COUNT49.4 %Bveweu14.0-72.0UnSelect Medical Specialty Hospital - Southeast OhioComment on above:Performed By: #### [id number] ####[facility] ([facility])[address] [place], [place] [address]kn 01-63-043692Fyqhgif: Pain - Adult Goal: Verbalizes/displays adequate comfort [...] for the shift include stable vitalsNormalUniversity of Ballinger Memorial Hospital DistrictBASIC METABOLIC PANELon 99-98-1060Zbwgr gap [Moles/Vol]12 mmol/L Normal7-20UnSelect Medical Specialty Hospital - Southeast OhioComment on above:Performed By: #### [id number] #### [facility] ([facility]) [address] [place] [address]Glvusan [Mass/Vol]8.4 mg/dLLow8.6-10.3UnSelect Medical Specialty Hospital - Southeast OhioComment on above:Performed By: #### [id number] #### [facility] ([facility]) [address] [place] [place], [place] [address]Dphxosue [Moles/Vol]107 mmol/WRxcnqk47-561MmovwxtptzSelect Medical Specialty Hospital - Southeast OhioComment on above:Performed By: #### [id number] #### [facility] ([facility]) [address] [place] [address]GP5 [Moles/Vol]22 mmol/EMpvuaf95-63LfekcjkrleSelect Medical Specialty Hospital - Southeast OhioComment on above:Performed By: #### [id number] #### [facility] ([facility]) [address] [place] [place], [place] [address]Fhcilpuwpb [Mass/Vol]3.88 mg/dLHigh0.60-1.20UnSelect Medical Specialty Hospital - Southeast OhioComment on above:Performed By: #### [id number] #### [facility] ([facility]) [address] [place], [place] [address]TFLNMZBXXX FILTRATION RATE ML/MIN/1.73 SQ M.RPKWBUOMB82.5 mL/min/1.73m*2Low>60.0UnSelect Medical Specialty Hospital - Southeast OhioComment on above:Result Comment: [facility]???s estimated glomerular filtration rate (eGFR) will [...] group of individuals.Performed By: #### [id number] #### [facility] ([facility]) [address] [place] [address]Kcvnlhh [Mass/Vol]88 mg/tDFtpwhw79-222MibjmfuxdnSelect Medical Specialty Hospital - Southeast OhioComment on above:Performed By: #### [id number] #### [facility] ([facility]) [address] [place] [address]Ekybbjukc [Moles/Vol]5.0 mmol/LNormal3.5-5.1UnSelect Medical Specialty Hospital - Southeast OhioComment on above:Performed By: #### [id number] #### [facility] ([facility]) [address] [place] [address]Hwwxsz [Moles/Vol]136 mmol/ZHqahjf064-634PzllrfspibSelect Medical Specialty Hospital - Southeast OhioComment on above:Performed By: #### [id number] #### [facility] ([facility]) [address] [place] [address]Pblt nitrogen [Mass/Vol]81 mg/dLHigh7-25UnSelect Medical Specialty Hospital - Southeast OhioComment on above:Performed By: #### [id number] #### [facility] ([facility]) [address] [place] [address]OIYM NITROGEN/CREATININE (MASS RATIO) IN SER/PLAS20.9Normal [facility] HospitalComment on above:Performed By: #### [id number] #### [facility] ([facility]) [address] [place] [address]BWV WITH AUTO DIFFERENTIALon 10-23-3570Mjsncbmol (Bld) [#/Vol] 0.04 10*3/uLNormal0.00-0.20UnSelect Medical Specialty Hospital - Southeast OhioComment on above: Performed By: #### [id number] ####[facility] ([facility])[address] [facility] [place] [place] [place] [address]Ajqvbtirg/100 WBC (Bld)0.7 %Normal0.0-1.0UnSelect Medical Specialty Hospital - Southeast OhioComment on above:Performed By: #### [id number] ####[facility] ([facility])[address] [place], [place] [address]Knxszlfnooi (Bld) [#/Vol]0.24 10*3/uL Normal0.00-0.50UnSelect Medical Specialty Hospital - Southeast OhioComment on above:Performed By: #### [id number] ####[facility] ([facility])[address] [place] [address] Eosinophils/100 WBC (Bld)4.4 %Normal0.0-6.0Un[facility] [place] Comment on above:Performed By: #### [id number] ####[facility] ([facility])[address] [place], [place] [address]Mxujismxucw distribution width (RBC) [Ratio]16.4 % High11.5-15.0UnSelect Medical Specialty Hospital - Southeast OhioComment on above:Performed By: #### [id number] ####[facility] ([facility])[address] [place] [address] ERYTHROCYTE MEAN CORPUSCULAR HEMOGLOBIN CONCENTRATION (G/DL) BY RRWUIBUSY71.0 g/cAXzruoq79.0-35.0UnSelect Medical Specialty Hospital - Southeast OhioComment on above:Performed By: #### [id number] ####[facility] ([facility])[address] [place], [place] [address]Sfseyqrxbu (Bld) [Volume fraction]28.8 %Low36.0-45.0UnSelect Medical Specialty Hospital - Southeast OhioComment on above:Performed By: #### [id number] ####[facility] ([facility])[address] [place], [place] [address]Vyzocrqvqb (Bld) [Mass/Vol]9.5 g/dLLow 12.0-15.0UnSelect Medical Specialty Hospital - Southeast OhioComment on above:Performed By: #### [id number] ####[facility] ([facility])[address] [place], [place] [address]Uzgqgiox granulocytes (Bld) [#/Vol]0.02 10*3/uLNormal0.00-0.20UnSelect Medical Specialty Hospital - Southeast OhioComment on above:Performed By: #### [id number] ####[facility] ([facility])[address] [place] [address]Xaozlvyh granulocytes/100 WBC (Bld)0.4 %Normal0.0-1.0UnSelect Medical Specialty Hospital - Southeast OhioComment on above:Performed By: #### [id number] ####[facility] ([facility])[address] [facility] [place] [address] Lymphocytes (Bld) [#/Vol]1.66 10*3/uLNormal1.20-4.00UnSelect Medical Specialty Hospital - Southeast OhioComment on above:Performed By: #### [id number] ####[facility] ([facility])[address]Char[place], [place] [address]Eflagkeefuz/100 WBC (Bld)30.6 %Normal 20.0-45.0UnSelect Medical Specialty Hospital - Southeast OhioComment on above:Performed By: #### [id number] ####[facility] ([facility])[address] [place], [place] [address]NBS (RBC) [Entitic mass]29.1 ajWkmzci43.0-33.0Un[facility] [place] Comment on above:Performed By: #### [id number] ####[facility] ([facility])[address] [place], [place] [address]JPE (RBC) [Entitic vol]88.1 oBDofuqw44.0-98.0 [facility]:Performed By: #### [id number] ####[facility] ([facility])[address] [place], [place] [address]Xifhsofbc (Bld) [#/Vol]0.56 10*3/uLNormal0.10-1.00[facility] [place] on [place]:Performed By: #### [id number] ####[facility] ([facility])[address] [place], [place] [address]Woqhlzkvv/100 WBC (Bld)10.3 %Normal5.0-12.0[facility] [place] on above:Performed By: #### [id number] ####[facility] ([facility])[address] [address]Zpsxcvokzlg (Bld) [#/Vol] 2.91 10*3/uLNormal1.60-7.60[facility] [place]Comment on above: Performed By: #### [id number] ####[facility] ([facility])[address] [address]Xvmmwiosheb/100 WBC (Bld)53.6 %Wogxcm22.0-72.0[facility] [place]Comment on above:Performed By: #### [id number] ####[facility] ([facility] [facility])[address] [address]QTYP (PER 100 WBCS) BY AUTOMATED COUNT0.0 %Vhzqtc2LeuukwchhjSelect Medical Specialty Hospital - Southeast OhioComment on above: Performed By: #### [id number] ####[facility] ([facility])[address] [place] [address]HLOBVUZEM (10*3/UL) IN BLOOD AUTOMATED [id number] 10*3/uLNormal 150-400UnSelect Medical Specialty Hospital - Southeast OhioComment on above:Performed By: #### [id number] ####[facility] ([facility])[address] [address]UCR (Bld) [#/Vol]3.27 10*6/uLLow3.80-5.00UnSelect Medical Specialty Hospital - Southeast OhioComment on above:Performed By: #### [id number] ####[facility] ([facility])[address] [address]PSG (Bld) [#/Vol]5.43 10*3/uLNormal4.00-10.60UnSelect Medical Specialty Hospital - Southeast OhioComment on above:Performed By: #### [id number] ####[facility] ([facility])[address] [address]NXGGJJQQWY WITH MICROSCOPICon 89-18-3195UBJAJXPVC, TOTAL PRESENCE IN URINENegativeNormalNegative [facility] HospitalComment on above:Performed By: #### [id number] #### [facility] ([facility]) [address] [place], [place] [address]Lvgvqst (U)ClearNormalClearMagruder Hospital Comment on above:Performed By: #### [id number] #### [facility] ([facility]) [address] [place], [place] [address]Tvmkg (U)Light-YellowNormalColorless, Yellow, Light-Yellow [facility] HospitalComment on above:Performed By: #### [id number] #### [facility] ([facility]) [address] [place], [place] [address]KUYIPAU (MG/DL) IN URINENormalNormalNormalUniversSheltering Arms HospitalComment on above:Performed By: #### [id number] #### [facility] ([facility]) [address] [place], [place] [address]TUOLFBSQLY PRESENCE IN URINENegativeNormalNegativeUnSelect Medical Specialty Hospital - Southeast OhioComment on above:Performed By: #### [id number] #### [facility] ([facility]) [address] [place], [place] [address]Zgopysl Ql (U)NegativeNormalNegativeMagruder HospitalComment on above:Performed By: #### [id number] #### [facility] ([facility]) [address] [place], [place] [address]QSBECLJNQ ESTERASE PRESENCE IN URINE BY TEST STRIPNegativeNormal NegativeUnSelect Medical Specialty Hospital - Southeast OhioComment on above:Performed By: #### [id number] #### [facility] ([facility]) [address] [place], [place] [address]JRLVCDQ PRESENCE IN URINENegativeNormalNegativeUnSelect Medical Specialty Hospital - Southeast OhioComment on above:Performed By: #### [id number] #### [facility] ([facility]) [address] [place], [place] [address]hJ (U)6.0 [pH]Normal5.0-8.0UnSelect [facility] [place] Comment on above:Performed By: #### [id number] #### [facility] [address] [place] [address]Unoaqsj (U) [Mass/Vol]30 mg/dLAbnormalNegativeUnSelect Medical Specialty Hospital - Southeast OhioComment on above:Performed By: #### [id number] #### [facility] ([facility]) [address] [place] [address]XSY (#/HPF) IN URINE SEDIMENT0-2NormalNone Seen, 0-2UnSelect Medical Specialty Hospital - Southeast OhioComment on above:Performed By: #### [id number] #### [facility] ([facility]) [address] [place] [address]Dzrhgxni gravity (U) [Rel density]1.978Yuiwjd8.010-1.030 [facility] HospitalComment on above:Performed By: #### [id number] #### [facility] ([facility]) [address] [place] [address]OPHPNNRT EPITHELIAL CELLS (#/LPF) IN URINE SEDIMENTOccasional NormalNone Seen, Occasional, FewUnSelect Medical Specialty Hospital - Southeast OhioComment on above:Performed By: #### [id number] #### [facility] ([facility]) [address] [place] [address]BLNVJFQQGUZT (MG/DL) IN URINENormalNormalNormalUniversSheltering Arms HospitalComment on above:Performed By: #### [id number] #### [facility] ([facility]) [address] [place] [address]UMJ (LEUKOCYTE) (#/HPF) IN URINE SEDIMENT0-2NormalNone Seen, 0-2 [facility] HospitalComment on above:Performed By: #### [id number] #### [facility] ([facility]) [address] [place] [address]87ys [id number] patient is Moderately Stable - Low risk [...] transferring and ambulating with or without assistive devicesNormalUniversSheltering Arms HospitalBASIC METABOLIC PANEL on 90-62-2502Xelzd gap [Moles/Vol]12 mmol/LNormal7-20UnSelect Medical Specialty Hospital - Southeast OhioComment on above:Performed By: #### [id number] #### [facility] ([facility]) [address] [place], [place] [address]Lvkkcbw [Mass/Vol]8.7 mg/dLNormal8.6-10.3UnSelect Medical Specialty Hospital - Southeast OhioComment on above:Performed By: #### [id number] #### [facility] ([facility]) [address] [place], [place] [address]Sypaefhy [Moles/Vol]106 mmol/IAamiqy92-988SzhtpacilqSelect Medical Specialty Hospital - Southeast OhioComment on above:Performed By: #### [id number] #### [facility] ([facility]) [address] [place], [place] [address]YL7 [Moles/Vol]22 mmol/VDvrstr13-89RlhigiqjduSelect Medical Specialty Hospital - Southeast OhioComment on above:Performed By: #### [id number] #### [facility] ([facility]) [address] [place], [place] [address]Qiihdtvmeb [Mass/Vol]3.69 mg/dLHigh0.60-1.20UnSelect Medical Specialty Hospital - Southeast OhioComment on above:Performed By: #### [id number] #### [facility] ([facility]) [address] [place] [address]IOICZCEFKW FILTRATION RATE ML/MIN/1.73 SQ M.DVYYPCTUW73.3 mL/min/1.73m*2Low>60.0UnSelect Medical Specialty Hospital - Southeast OhioComment on above:Result Comment: [facility]???s estimated glomerular filtration rate (eGFR) will [...] affect anyone group of individuals.Performed By: #### [id number] #### [facility] ([facility]) [address] [place], [place] [address]Rlqtygq [Mass/Vol]85 mg/vQXkodze00-326KdwfoepkksSelect Medical Specialty Hospital - Southeast OhioComment on above:Performed By: #### [id number] #### [facility] ([facility]) [address] [place] [address]Abxiilcgf [Moles/Vol]5.1 mmol/LNormal3.5-5.1UnSelect Medical Specialty Hospital - Southeast OhioComment on above:Performed By: #### [id number] #### [facility] ([facility]) [address] [place] [address]Yevyjz [Moles/Vol]135 mmol/VKmu557-025YogmglnbphSelect Medical Specialty Hospital - Southeast OhioComment on above:Performed By: #### [id number] #### [facility] ([facility]) [address] [place], [place] [address]Wwrm nitrogen [Mass/Vol]68 mg/dLHigh7-25UnSelect Medical Specialty Hospital - Southeast OhioComment on above:Performed By: #### [id number] #### [facility] ([facility]) [address] [place] [place], [place] [address]KOPH NITROGEN/CREATININE (MASS RATIO) IN SER/PLAS18.4Normal [facility]uder HospitalComment on above:Performed By: #### [id number] #### [facility] ([facility]) [address] [facility] [place], [place] [address]ECE WITH AUTO DIFFERENTIALon 10-74-3947Lyyapmfgo (Bld) [#/Vol] 0.04 10*3/uLNormal0.00-0.20UnSelect Medical Specialty Hospital - Southeast OhioComment on above: Performed By: #### [id number] #### [facility] ([facility]) [address] [place], [place] [address]Lygozuvcn/100 WBC (Bld)0.7 %Normal0.0-1.0UnSelect Medical Specialty Hospital - Southeast OhioComment on above:Performed By: #### [id number] #### [facility] ([facility]) [address] [place], [place] [address]Ukcaiursqge (Bld) [#/Vol]0.27 10*3/uLNormal0.00-0.50UnSelect Medical Specialty Hospital - Southeast OhioComment on above:Performed By: #### [id number] #### [facility] ([facility]) [address], [place] [address]Przxalqoqjo/100 WBC (Bld)4.9 %Normal0.0-6.0UnSelect Medical Specialty Hospital - Southeast OhioComment on above:Performed By: #### [id number] #### [facility] ([facility]) [address] [place], [place] [address]Rocdwmfmmad distribution width (RBC) [Ratio]16.4 %High11.5-15.0 [facility] HospitalComment on above:Performed By: #### [id number] #### [facility] ([facility]) [address] [place], [place] [address]JSSEJIPXDUT MEAN CORPUSCULAR HEMOGLOBIN CONCENTRATION (G/DL) BY EJWFRHFKS95.5 g/bKHvehhz94.0-35.0UnSelect Medical Specialty Hospital - Southeast OhioComment on above:Performed By: #### [id number] #### [facility] ([facility]) [address], [place] [address]Fbtztuysdh (Bld) [Volume fraction]29.5 %Low36.0-45.0UnSelect Medical Specialty Hospital - Southeast OhioComment on above:Performed By: #### [id number] #### [facility] ([facility]) [address] [facility] [address]Lixnqrycms (Bld) [Mass/Vol]9.6 g/dLLow12.0-15.0UnSelect Medical Special[facility] Hospital - Southeast OhioComment on above:Performed By: #### [id number] #### [facility] ([facility]) [address], [place] [address]Znparbuj granulocytes (Bld) [#/Vol]0.02 10*3/uLNormal0.00-0.20 [facility] HospitalComment on above:Performed By: #### [id number] #### [facility] ([facility]) [address], [place] [address]Pwvjjodc granulocytes/100 WBC (Bld)0.4 %Normal0.0-1.0UnSelect Medical Specialty Hospital - Southeast OhioComment on above:Performed By: #### [id number] #### [facility] ([facility]) [address], [place] [address]Zjnblaylmhb (Bld) [#/Vol]1.76 10*3/uLNormal1.20-4.00UnSelect Medical Special[facility] Hospital - Southeast OhioComment on above:Performed By: #### [id number] #### [facility] ([facility]) [address], [place] [address]Pfxspwbfvmn/100 WBC (Bld)32.1 %Wzcgvj68.0-45.0UnSelect Medical Specialty Hospital - Southeast OhioComment on above:Performed By: #### [id number] #### [facility] ([facility]) [address], [place] [address]QLB (RBC) [Entitic mass]29.3 rlIvntkw26.0-33.0UnSelect Medical Specialty Hospital - Southeast OhioComment on above:Performed By: #### [id number] #### [facility] ([facility]) [address] [place], [place] [address]DBS (RBC) [Entitic vol]89.9 yEYfszta70.0-98.0UnSelect Medical Specialty Hospital - Southeast OhioComment on above:Performed By: #### [id number] #### [facility] ([facility]) [address] [facility] [place] [address]Iamxbuyoq (Bld) [#/Vol]0.54 10*3/uLNormal0.10-1.00UnSelect Medical Specialty Hospital - Southeast OhioComment on above:Performed By: #### [id number] #### [facility] ([facility]) [address] [facility] [place] [address]Pdsmgmqxn/100 WBC (Bld)9.8 %Normal5.0-12.0UnSelect Medical Specialty Hospital - Southeast OhioComment on above:Performed By: #### [id number] #### [facility] ([facility]) [address] [address]Pjntuvapfhf (Bld) [#/Vol]2.86 10*3/uLNormal1.60-7.60UnSelect Medical Specialty Hospital - Southeast OhioComment on above:Performed By: #### [id number] #### [facility] ([facility]) [address] [place], [place] [address]Daszgfoxira/100 WBC (Bld)52.1 %Ufigwb53.0-72.0UnSelect Medical Specialty Hospital - Southeast OhioComment on above:Performed By: #### [id number] #### [facility] ([facility]) [address] [place], [place] [address]NDRA (PER 100 WBCS) BY AUTOMATED COUNT0.0 %Hybxdo9OrzhnxxvtqSelect Medical Specialty Hospital - Southeast OhioComment on above:Performed By: #### [id number] #### [facility] ([facility]) [address] [place], [place] [address]SNKOBUQXY (10*3/UL) IN BLOOD AUTOMATED [id number] 10*3/uLNormal 150-400UnSelect Medical Specialty Hospital - Southeast OhioComment on above:Performed By: #### [id number] #### [facility] ([facility]) [address] [place] [address]YTY (Bld) [#/Vol]3.28 10*6/uLLow3.80-5.00UnSelect Medical Special[facility] Hospital - Southeast OhioComment on above:Performed By: #### [id number] #### [facility] ([facility]) [address] [place] [address]ZVG (Bld) [#/Vol]5.49 10*3/uLNormal4.00-10.60UnSelect Medical Special[facility] Hospital - Southeast OhioComment on above:Performed By: #### [id number] #### [facility] ([facility]) [address] [place], [place] [address]NSIV GLUCOSE METER UNSOLICITED RESULTSon 40-92-6002Twrtlmb [Mass/Vol]116 mg/vHAqgs15-623UahsdqcopmSelect Medical Specialty Hospital - Southeast OhioComment on above:Order Comment: Waived Testing in the ED is performed under the ED CLIA certificate #[id number].Result Comment: uyathnp4Lrnfomudn By: #### [id number] ####[facility] ([facility])[address] [place], [place] [address]Eujlwxs [Mass/Vol]130 mg/xXFbbo93-357FxueeoxnisSelect Medical Specialty Hospital - Southeast OhioComment on above:Order Comment: Waived Testing in the ED is performed under the ED CLIA certificate #[id number].Result Comment: yzuhlgu1Mihkefddh By: #### [id number] #### [facility] ([facility]) [address] [place], [place] [address]Pjnbwtx [Mass/Vol]114 mg/sNGrjk65-978MilkuqptsoSelect Medical Specialty Hospital - Southeast OhioComment on above:Order Comment: Waived Testing in the ED is performed under the ED CLIA certificate #[id number].Result Comment: [email or web address] Performed By: #### [id number] ####[facility] ([facility])[address] [place], [place] [address]nf [id number] patient is Moderately Stable - Low risk of patient condition declining or worsening The patient's goals for the shift include Comfort, rest The clinical goals for the shift include Stable vitals and labs, comfort, rest, safetyNormalUniversSheltering Arms HospitalBASIC METABOLIC PANELon 41-61-4484Aoueb gap [Moles/Vol]11 mmol/LNormal7-20UnSelect Medical Specialty Hospital - Southeast OhioComment on above:Performed By: #### [id number] #### [facility] ([facility]) [address] [place] [address]Uvgrcjc [Mass/Vol]8.6 mg/dLNormal8.6-10.3UnSelect Medical Specialty Hospital - Southeast OhioComment on above:Performed By: #### [id number] #### [facility] ([facility]) [address] [place] [address]Dgtetaki [Moles/Vol]106 mmol/JLaadnd63-457ZepklysrtqSelect Medical Specialty Hospital - Southeast OhioComment on above:Performed By: #### [id number] #### [facility] ([facility]) [address] [place] [address]UL7 [Moles/Vol]23 mmol/FZsglks30-65HmproozmztSelect Medical Specialty Hospital - Southeast OhioComment on above:Performed By: #### [id number] #### [facility] ([facility]) [address] [place], [place] [address]Icpkgljgfn [Mass/Vol]3.61 mg/dLHigh0.60-1.20UnSelect Medical Specialty Hospital - Southeast OhioComment on above:Performed By: #### [id number] #### [facility] ([facility]) [address] [place] [address]JTOTVWOXLS FILTRATION RATE ML/MIN/1.73 SQ M.DHRNNDJAT83.6 mL/min/1.73m*2Low>60.0UnSelect Medical Specialty Hospital - Southeast OhioComment on above:Result Comment: [facility]???s estimated glomerular filtration rate (eGFR) will [...] group of individuals.Performed By: #### [id number] #### [facility] ([facility]) [address] [place], [place] [address]Enatjkk [Mass/Vol]91 mg/wOUumesk66-865OcnicbsoanSelect Medical Specialty Hospital - Southeast OhioComment on above:Performed By: #### [id number] #### [facility] ([facility]) [address] [place], [place] [address]Jvhxbaphd [Moles/Vol]5.0 mmol/LNormal3.5-5.1UnSelect Medical Special[facility] Hospital - Southeast OhioComment on above:Performed By: #### [id number] #### [facility] ([facility]) [address] [place] [address]Ebxdkk [Moles/Vol]135 mmol/SHqq876-269DokegoktxbSelect Medical Specialty Hospital - Southeast OhioComment on above:Performed By: #### [id number] #### [facility] ([facility]) [address] [place] [place], [place] [address]Tfio nitrogen [Mass/Vol]61 mg/dLHigh7-25UnSelect Medical Special[facility] Hospital - Southeast OhioComment on above:Performed By: #### [id number] #### [facility] ([facility]) [address] [place], [place] [address]AHJD NITROGEN/CREATININE (MASS RATIO) IN SER/PLAS16.9Normal [facility]ruder HospitalComment on above:Performed By: #### [id number] #### [facility] ([facility]) [address] [place] [place], [place] [address]ERE WITH AUTO DIFFERENTIALon 11-43-8188Roqshutec (Bld) [#/Vol] 0.02 10*3/uLNormal0.00-0.20UnSelect Medical Specialty Hospital - Southeast OhioComment on above: Performed By: #### [id number] ####[facility] ([facility])[address] [place], [place] [address]Dodspekvl/100 WBC (Bld)0.3 %Normal0.0-1.0UnSelect Medical Specialty Hospital - Southeast OhioComment on above:Performed By: #### [id number] ####[facility] ([facility])[address] [place], [place] [address]Vfoccwygpdl (Bld) [#/Vol]0.21 10*3/uL Normal0.00-0.50UnSelect Medical Specialty Hospital - Southeast OhioComment on above:Performed By: #### [id number] ####[facility] ([facility])[address] [place] [address] Eosinophils/100 WBC (Bld)3.3 %Normal0.0-6.0Un[facility] [place] Comment on above:Performed By: #### [id number] ####[facility] ([facility])[address] [place], [place] [address]Efcreglmaqy distribution width (RBC) [Ratio]16.3 % High11.5-15.0UnSelect Medical Specialty Hospital - Southeast OhioComment on above:Performed By: #### [id number] ####[facility] ([facility])[address] [place] [address] ERYTHROCYTE MEAN CORPUSCULAR HEMOGLOBIN CONCENTRATION (G/DL) BY ABTNHGIDP47.0 g/eQWbbtdq65.0-35.0UnSelect Medical Specialty Hospital - Southeast OhioComment on above:Performed By: #### [id number] ####[facility] ([facility])[address] [place], [place] [address]Mkqyhiijlm (Bld) [Volume fraction]29.7 %Low36.0-45.0UnSelect Medical Special[facility] Hospital - Southeast OhioComment on above:Performed By: #### [id number] ####[facility] ([facility])[address] [place], [place] [address]Arwcxbsegw (Bld) [Mass/Vol]9.8 g/dLLow 12.0-15.0UnSelect Medical Special[facility] Hospital - Southeast OhioComment on above:Performed By: #### [id number] ####[facility])[address] [place], [place] [address]Uuzakhct granulocytes (Bld) [#/Vol]0.02 10*3/uLNormal0.00-0.20UnSelect Medical Special[facility] - Southeast OhioComment on above:Performed By: #### [id number] ####[facility] ([facility])[address] [place] [address]Iugekvwg granulocytes/100 WBC (Bld)0.3 %Normal0.0-1.0UnSelect Medical Specialty Hospital - Southeast OhioComment on above:Performed By: #### [id number] ####[facility] ([facility])[address] [place] [address] Lymphocytes (Bld) [#/Vol]1.61 10*3/uLNormal1.20-4.00UnSelect Medical Special[facility] Hospital - Southeast OhioComment on above:Performed By: #### [id number] ####[facility] ([facility])[address] [place], [place] [address]Rfvlpykwqqk/100 WBC (Bld)25.6 %Normal 20.0-45.0UnSelect Medical Specialty Hospital - Southeast OhioComment on above:Performed By: #### [id number] ####[facility] ([facility])[address] [place], [place] [address]BUT (RBC) [Entitic mass]29.3 vvUvswpw32.0-33.0UnSelect [facility] [place] Comment on above:Performed By: #### [id number] ####[facility] ([facility])[address] [place], [place] [address]UBT (RBC) [Entitic vol]88.7 mZEempvv28.0-98.0 [facility] HospitalComment on above:Performed By: #### [id number] ####[facility] ([facility])[address] [place], [place] [address]Lgpbumoyp (Bld) [#/Vol]0.58 10*3/uLNormal0.10-1.00UnSelect Medical Special[facility] Hospital - Southeast OhioComment on above:Performed By: #### [id number] ####[facility] ([facility])[address] [place]Char[place], [place] [address]Gntjiskzr/100 WBC (Bld)9.2 %Normal5.0-12.0UnSelect Medical Special[facility] Hospital - Southeast OhioComment on above:Performed By: #### [id number] ####[facility] ([facility])[address] [place] [address]Irqgmmhqiaz (Bld) [#/Vol] 3.85 10*3/uLNormal1.60-7.60UnSelect Medical Special[facility] Hospital - Southeast OhioComment on above: Performed By: #### [id number] ####[facility] ([facility])[address] [place] [address]Dnymhcxhqmm/100 WBC (Bld)61.3 %Rigkvh95.0-72.0UnSelect Medical Special[facility] Hospital - Southeast OhioComment on above:Performed By: #### [id number] ####[facility] ([facility])[address] [place] [address]DVIG (PER 100 WBCS) BY AUTOMATED COUNT0.0 %Fxzbix0YynaqwgulkSelect Medical Specialty Hospital - Southeast OhioComment on above: Performed By: #### [id number] ####[facility] ([facility])[address] [place], [place] [address]WSKCEDWCQ (10*3/UL) IN BLOOD AUTOMATED MEFDS251 10*3/uLNormal 150-400UnSelect Medical Specialty Hospital - Southeast OhioComment on above:Performed By: #### [id number] ####[facility] ([facility])[address] [place], [place] [address]BCT (Bld) [#/Vol]3.35 10*6/uLLow3.80-5.00UnSelect [facility] Hospital - Southeast OhioComment on above:Performed By: #### [id number] ####[facility] ([facility])[address] [place], [place] [address]UIN (Bld) [#/Vol]6.29 10*3/uLNormal4.00-10.60UnSelect [facility] Hospital - Southeast OhioComment on above:Performed By: #### [id number] ####[facility] ([facility] [place], [place] [address]DGCKLAKvd 03-17-2025 CONSULTdischarge planning: to Home with Home [...] mass referral for C; referrals sent via [employer] system - Patient agreeable to reviewing printed listing of HHC providers so can provide Agency of Choice once accepting HHC providers found discharge barriers: [] need HHC choices, then accepting [] will need insurance precert for any placement from this admission [] NormalUnSelect Medical Specialty Hospital - Southeast OhioPOCT GLUCOSE METER UNSOLICITED RESULTSon 89-70-6996Bkxgvoz [Mass/Vol]121 mg/mGXutp33-459MtezofumwdMagruder HospitalComment on above:Order Comment: Waived Testing in the ED is performed under the ED CLIA certificate #[id number].Result Comment: [email or web address] Performed By: #### [id number] #### [facility] ([employer]) [address] [place], [place] [address]Wvdfqap [Mass/Vol]148 mg/aVTuqx31-919ZcpeyvjwnsSelect Medical Specialty Hospital - Southeast OhioComment on above:Order Comment: Waived Testing in the ED is performed under the ED CLIA certificate #[id number].Result Comment: [email or web address] Performed By: #### [id number] #### [facility] ([facility]) [address], [place] [address]Qbdvhpa [Mass/Vol]161 mg/mKWqww57-400MydklqeiuwSelect Medical Specialty Hospital - Southeast OhioComment on above:Order Comment: Waived Testing in the ED is performed under the ED CLIA certificate #[id number].Result Comment: [email or web address] Performed By: #### [id number] #### [facility] ([facility]) [address] [place], [place] [address]WSMVC METABOLIC PANELon 90-35-6848Whgqf gap [Moles/Vol]10 mmol/L Normal7-20UnSelect Medical Specialty Hospital - Southeast OhioComment on above:Performed By: #### [id number] ####[facility] ([facility])[address] [place] [address]Usypekq [Mass/Vol]8.6 mg/dLNormal8.6-10.3UnSelect Medical Specialty Hospital - Southeast OhioComment on above:Performed By: #### [id number] ####[facility] ([facility])[address] [place] [address]Piflpbmh [Moles/Vol]106 mmol/UDjczuq20-987PtpgaziyziSelect Medical Specialty Hospital - Southeast OhioComment on above:Performed By: #### [id number] ####[facility] ([facility])[address] [place] [address]YZ7 [Moles/Vol]23 mmol/LNormal 21-31UnSelect Medical Specialty Hospital - Southeast OhioComment on above:Performed By: #### [id number] ####[facility] ([facility])[address] [place] [address]Quymhjxvyg [Mass/Vol]3.39 mg/dLHigh0.60-1.20UnSelect Medical Specialty Hospital - Southeast OhioComment on above:Performed By: #### [id number] ####[facility] ([facility])[address] [place] [address]VEYORIVETR FILTRATION RATE ML/MIN/1.73 SQ M.KXMDFJZWW50.6 mL/min/1.73m*2Low>60.0UnSelect Medical Specialty Hospital - Southeast OhioComment on above:Result Comment: [facility]???s estimated glomerular filtration rate (eGFR) will [...] anyone group of individuals.Performed By: #### [id number] ####[facility] ([facility])[address] [place] [address]Ufmnbnw [Mass/Vol]101 mg/xZMany14-420IsvylvmqqsSelect Medical Specialty Hospital - Southeast OhioComment on above:Performed By: #### [id number] ####[facility] ([facility])[address] [place] [address]Nznehngqy [Moles/Vol]4.5 mmol/L Normal3.5-5.1UnSelect Medical Specialty Hospital - Southeast OhioComment on above:Performed By: #### [id number] ####[facility] ([facility])[address] [place] [address] Sodium [Moles/Vol]134 mmol/UWzg793-262HdtaidjzypSelect Medical Specialty Hospital - Southeast OhioComment on above:Performed By: #### [id number] ####[facility] ([facility])[address] [place] [address]Genn nitrogen [Mass/Vol]53 mg/dLHigh7-25UnSelect Medical Specialty Hospital - Southeast OhioComment on above:Performed By: #### [id number] ####[facility] ([facility])[address] [place], [place] [address]DEBK NITROGEN/CREATININE (MASS RATIO) IN SER/PLAS15.6NormalUniversSheltering Arms HospitalComment on above: Performed By: #### [id number] ####[facility] ([facility])[address] [place] [address]KZQ WITH AUTO DIFFERENTIALon 74-90-2465Takzpeemw (Bld) [#/Vol]0.03 10*3/uLNormal0.00-0.20UnSelect Medical Specialty Hospital - Southeast OhioComment on above: Performed By: #### [id number] #### [facility] ([facility]) [address] [place] [address]Tzxzhhngs/100 WBC (Bld)0.6 %Normal0.0-1.0UnSelect Medical Specialty Hospital - Southeast OhioComment on above:Performed By: #### [id number] #### [facility] ([facility]) [address] [place] [address]Ysvegygxfdi (Bld) [#/Vol]0.21 10*3/uLNormal0.00-0.50UnSelect Medical Specialty Hospital - Southeast OhioComment on above:Performed By: #### [id number] #### [facility] ([facility]) [address] [place] [address]Uauewcmcwqa/100 WBC (Bld)4.0 %Normal0.0-6.0UnSelect Medical Specialty Hospital - Southeast OhioComment on above:Performed By: #### [id number] #### [facility] ([facility]) [address] [place] [place], [place] [address]Obrkmtknkza distribution width (RBC) [Ratio]16.3 %High11.5-15.0 Magruder HospitalComment on above:Performed By: #### [id number] #### [facility] ([facility]) [address] [place] [place], [place] [address]FUPOAGRGIMO MEAN CORPUSCULAR HEMOGLOBIN CONCENTRATION (G/DL) BY ZRDDQDTRG73.9 g/bMKsjsff86.0-35.0UnSelect Medical Specialty Hospital - Southeast OhioComment on above:Performed By: #### [id number] #### [facility] ([facility]) [address] [place] [place], [place] [address]Lyavhxsdvp (Bld) [Volume fraction]31.6 %Low36.0-45.0UnSelect Medical Specialty Hospital - Southeast OhioComment on above:Performed By: #### [id number] #### [facility] ([facility]) [address] [place] [place], [place] [address]Dqlyllvaoz (Bld) [Mass/Vol]10.4 g/dLLow12.0-15.0UnSelect Medical Specialty Hospital - Southeast OhioComment on above:Performed By: #### [id number] #### [facility] ([facility]) [address] [place], [place] [address]Psyagzkb granulocytes (Bld) [#/Vol]0.01 10*3/uLNormal0.00-0.20 [facility]uder HospitalComment on above:Performed By: #### [id number] #### [facility] ([facility]) [address] [place] [address]Zlszbkqx granulocytes/100 WBC (Bld)0.2 %Normal0.0-1.0UnSelect Medical Specialty Hospital - Southeast OhioComment on above:Performed By: #### [id number] #### [facility] ([facility]) [address] [place] [address]Chukwldtuls (Bld) [#/Vol]1.52 10*3/uLNormal1.20-4.00UnSelect Medical Specialty Hospital - Southeast OhioComment on above:Performed By: #### [id number] #### [facility] ([facility]) [address] [place] [address]Maijsjsnkde/100 WBC (Bld)28.8 %Anxkks68.0-45.0UnSelect Medical Specialty Hospital - Southeast OhioComment on above:Performed By: #### [id number] #### [facility] ([facility]) [address] [place], [place] [address]GEK (RBC) [Entitic mass]29.5 vnEahsjv57.0-33.0UnSelect Medical Specialty Hospital - Southeast OhioComment on above:Performed By: #### [id number] #### [facility] ([facility]) [address] [place] [address]EOI (RBC) [Entitic vol]89.5 tOVyvynd09.0-98.0UnSelect Medical Specialty Hospital - Southeast OhioComment on above:Performed By: #### [id number] #### [facility] ([facility]) [address] [place], [place] [address]Xqurjtirt (Bld) [#/Vol]0.53 10*3/uLNormal0.10-1.00UnSelect Medical Specialty Hospital - Southeast OhioComment on above:Performed By: #### [id number] #### [facility] ([facility]) [address] [place] [place], [place] [address]Mhrujlyyq/100 WBC (Bld)10.0 %Normal5.0-12.0UnSelect Medical Specialty Hospital - Southeast OhioComment on above:Performed By: #### [id number] #### [facility] ([facility]) [address] [place] [address]Wydizyqzwmy (Bld) [#/Vol]2.98 10*3/uLNormal1.60-7.60UnSelect Medical Specialty Hospital - Southeast OhioComment on above:Performed By: #### [id number] #### [facility] ([facility]) [address] [address]Zicwufzgtby/100 WBC (Bld)56.4 %Jmxxwr88.0-72.0UnSelect Medical Specialty Hospital - Southeast OhioComment on above:Performed By: #### [id number] #### [facility] ([facility]) [address] [place] [address]NXQW (PER 100 WBCS) BY AUTOMATED COUNT0.0 %Pofynh2SiapezmhodSelect Medical Specialty Hospital - Southeast OhioComment on above:Performed By: #### [id number] #### [facility] ([facility]) [address] [place] [address]UYTTHYGBA (10*3/UL) IN BLOOD AUTOMATED [id number] 10*3/uLNormal 150-400UnSelect Medical Specialty Hospital - Southeast OhioComment on above:Performed By: #### [id number] #### [facility] ([facility]) [address] [place] [address]IUU (Bld) [#/Vol]3.53 10*6/uLLow3.80-5.00UnSelect Medical Specialty Hospital - Southeast OhioComment on above:Performed By: #### [id number] #### [facility] ([facility]) [address] [place] [address]MKK (Bld) [#/Vol]5.28 10*3/uLNormal4.00-10.60UnSelect Medical Specialty Hospital - Southeast OhioComment on above:Performed By: #### [id number] #### [facility] ([facility]) [address] [place] [address]HFHH GLUCOSE METER UNSOLICITED RESULTSon 98-88-1199Cuehowg [Mass/Vol]102 mg/iMWararv45-557PgiwbkqgopSelect Medical Specialty Hospital - Southeast OhioComment on above:Order Comment: Waived Testing in the ED is performed under the ED CLIA certificate #[id number].Result Comment: [id number] By: #### [id number] ####[facility] ([facility])[address] [place], [place] [address]Blmqopp [Mass/Vol]95 mg/sAZfyqpk18-754YhbuzosiwzSelect Medical Specialty Hospital - Southeast OhioComment on above:Order Comment: Waived Testing in the ED is performed under the ED CLIA certificate #[id number].Result Comment: astonekingPerformed By: #### [id number] #### [facility] ([facility]) [address] [place], [place] [address]Bitkrbz [Mass/Vol]130 mg/qDUmoi03-517YvpbotaxjaSelect Medical Specialty Hospital - Southeast OhioComment on above:Order Comment: Waived Testing in the ED is performed under the ED CLIA certificate #[id number].Result Comment: astoneking Performed By: #### [id number] ####[facility] ([facility])[address] [place], [place] [address]Noevsbf [Mass/Vol]102 mg/jLVxbyaa09-576ZlinehaqxmSelect Medical Specialty Hospital - Southeast OhioComment on above:Order Comment: Waived Testing in the ED is performed under the ED CLIA certificate #[id number].Result Comment: astoneking Performed By: #### [id number] ####[facility] ([facility])[address] [place], [place] [address]HYIBY METABOLIC PANELon 40-05-9807Dfqvx gap [Moles/Vol]10 mmol/LNormal7-20UnSelect Medical Specialty Hospital - Southeast OhioComment on above:Performed By: #### [id number] #### [facility] ([facility]) [address] [place], [place] [address]Ohrquei [Mass/Vol]8.9 mg/dLNormal8.6-10.3UnSelect Medical Specialty Hospital - Southeast OhioComment on above:Performed By: #### [id number] #### [facility] ([facility]) [address] [place], [place] [address]Nebiebmm [Moles/Vol]104 mmol/YPawrzo51-435GgvlhyfmbeSelect Medical Specialty Hospital - Southeast OhioComment on above:Performed By: #### [id number] #### [facility] ([facility]) [address] [place] [address]ZL8 [Moles/Vol]24 mmol/NStbbrd98-62UamszzazflSelect Medical Specialty Hospital - Southeast OhioComment on above:Performed By: #### [id number] #### [facility] ([facility]) [address] [place] [address]Cvdakoijfy [Mass/Vol]3.21 mg/dLHigh0.60-1.20UnSelect Medical Specialty Hospital - Southeast OhioComment on above:Performed By: #### [id number] #### [facility] ([facility]) [address] [place] [address]GOPGLBTOXL FILTRATION RATE ML/MIN/1.73 SQ M.LWKTMUQXW38.5 mL/min/1.73m*2Low>60.0UnSelect Medical Specialty Hospital - Southeast OhioComment on above:Result Comment: [facility]???s estimated glomerular filtration rate (eGFR) will [...] group of individuals.Performed By: #### [id number] #### [facility] ([facility]) [address] [place] [address]Cxvqqqy [Mass/Vol]103 mg/gINqsn47-199JrzjjghuczSelect Medical Specialty Hospital - Southeast OhioComment on above:Performed By: #### [id number] #### [facility] ([facility]) [address] [place] [address]Zgsdebqut [Moles/Vol]4.7 mmol/LNormal3.5-5.1UnSelect Medical Specialty Hospital - Southeast OhioComment on above:Performed By: #### [id number] #### [facility] ([facility]) [address] [place], [place] [address]Bmywfn [Moles/Vol]133 mmol/QDzt884-827RiwydekpmkSelect Medical Specialty Hospital - Southeast OhioComment on above:Performed By: #### [id number] #### [facility] ([facility]) [address] [place], [place] [address]Pgeh nitrogen [Mass/Vol]45 mg/dLHigh7-25UnSelect Medical Specialty Hospital - Southeast OhioComment on above:Performed By: #### [id number] #### [facility] ([facility]) [address] [place], [place] [address]IACE NITROGEN/CREATININE (MASS RATIO) IN SER/PLAS14.0Normal [facility] HospitalComment on above:Performed By: #### [id number] #### [facility] ([facility]) [address] [facility]MENTVirgin[place], [place] [address]JEC WITH AUTO DIFFERENTIALon 44-23-9369Skjjvoytm (Bld) [#/Vol] 0.05 10*3/uLNormal0.00-0.20UnSelect Medical Specialty Hospital - Southeast OhioComment on above: Performed By: #### [id number] #### [facility] ([facility]) [address] [place], [place] [address]Hqzdzrtju/100 WBC (Bld)0.8 %Normal0.0-1.0UnSelect Medical Specialty Hospital - Southeast OhioComment on above:Performed By: #### [id number] #### [facility] ([facility]) [address] [place], [place] [address]Lbudfgyxinl (Bld) [#/Vol]0.26 10*3/uLNormal0.00-0.50UnSelect Medical Specialty Hospital - Southeast OhioComment on above:Performed By: #### [id number] #### [facility] ([facility]) [address] [place] [place], [place] [address]Mqnbtfcston/100 WBC (Bld)4.1 %Normal0.0-6.0UnSelect Medical Specialty Hospital - Southeast OhioComment on above:Performed By: #### [id number] #### [facility] ([facility]) [address] [facility] [place] [address]Srzezucaybr distribution width (RBC) [Ratio]16.1 %High11.5-15.0 [facility] HospitalComment on above:Performed By: #### [id number] #### [facility] ([facility]) [address] [place] [address]KEELRHLIFRI MEAN CORPUSCULAR HEMOGLOBIN CONCENTRATION (G/DL) BY UCFCBSMQK32.8 g/xNSyyuhv38.0-35.0UnSelect Medical Specialty Hospital - Southeast OhioComment on above:Performed By: #### [id number] #### [facility] ([facility]) [address] [place] [address]Nldrjcaxar (Bld) [Volume fraction]34.5 %Low36.0-45.0UnSelect Medical Specialty Hospital - Southeast OhioComment on above:Performed By: #### [id number] #### [facility] ([facility]) [address] [place], [place] [address]Xujoiptkts (Bld) [Mass/Vol]11.3 g/dLLow12.0-15.0UnSelect Medical Specialty Hospital - Southeast OhioComment on above:Performed By: #### [id number] #### [facility] ([facility]) [address] [place], [place] [address]Bdyykrlo granulocytes (Bld) [#/Vol]0.02 10*3/uLNormal0.00-0.20 [facility] HospitalComment on above:Performed By: #### [id number] #### [facility] ([facility]) [address] [place], [place] [address]Tgoffcfa granulocytes/100 WBC (Bld)0.3 %Normal0.0-1.0UnSelect Medical Specialty Hospital - Southeast OhioComment on above:Performed By: #### [id number] #### [facility] ([facility]) [address] [place], [place] [address]Iwvykxgtvzo (Bld) [#/Vol]1.80 10*3/uLNormal1.20-4.00UnSelect Medical Specialty Hospital - Southeast OhioComment on above:Performed By: #### [id number] #### [facility] ([facility]) [address] [place] [address]Nepjefoucao/100 WBC (Bld)28.3 %Jzofab60.0-45.0UnSelect Medical Specialty Hospital - Southeast OhioComment on above:Performed By: #### [id number] #### [facility] ([facility]) [address] [place] [address]KKZ (RBC) [Entitic mass]29.0 liPvbvhw35.0-33.0UnSelect Medical Specialty Hospital - Southeast OhioComment on above:Performed By: #### [id number] #### [facility] ([facility]) [address] [place], [place] [address]DCF (RBC) [Entitic vol]88.5 yRMviims43.0-98.0UnSelect Medical Specialty Hospital - Southeast OhioComment on above:Performed By: #### [id number] #### [facility] ([facility]) [address] [place], [place] [address]Ozyrzfvbc (Bld) [#/Vol]0.67 10*3/uLNormal0.10-1.00UnSelect Medical Specialty Hospital - Southeast OhioComment on above:Performed By: #### [id number] #### [facility] ([facility]) [address] [place], [place] [address]Xcwwqhedv/100 WBC (Bld)10.5 %Normal5.0-12.0UnSelect Medical Specialty Hospital - Southeast OhioComment on above:Performed By: #### [id number] #### [facility] ([facility]) [address] [place], [place] [address]Cvewycqrkzn (Bld) [#/Vol]3.57 10*3/uLNormal1.60-7.60UnSelect Medical Specialty Hospital - Southeast OhioComment on above:Performed By: #### [id number] #### [facility] ([facility]) [address] [place], [place] [address]Uenfoteynrc/100 WBC (Bld)56.0 %Mxragn44.0-72.0UnSelect Medical Specialty Hospital - Southeast OhioComment on above:Performed By: #### [id number] #### [facility] ([facility]) [address] [place] [address]LFNX (PER 100 WBCS) BY AUTOMATED COUNT0.0 %Aukzcq4CyptamkjvcSelect Medical Specialty Hospital - Southeast OhioComment on above:Performed By: #### [id number] #### [facility] ([facility]) [address] [place] [address]PYDZDGLQQ (10*3/UL) IN BLOOD AUTOMATED ONABR610 10*3/uLNormal 150-400UnSelect Medical Specialty Hospital - Southeast OhioComment on above:Performed By: #### [id number] #### [facility] ([facility]) [address] [place] [address]RQL (Bld) [#/Vol]3.90 10*6/uLNormal3.80-5.00UnSelect Medical Specialty Hospital - Southeast OhioComment on above:Performed By: #### [id number] #### [facility] ([facility]) [address] [place] [address]NGI (Bld) [#/Vol]6.37 10*3/uLNormal4.00-10.60UnSelect Medical Specialty Hospital - Southeast OhioComment on above:Performed By: #### [id number] #### [facility] ([facility]) [address] [place] [address]PEGN GLUCOSE METER UNSOLICITED RESULTSon 31-44-7528Dehpemu [Mass/Vol]107 mg/yKWaqy56-245YnabokykacSelect Medical Specialty Hospital - Southeast OhioComment on above:Order Comment: Waived Testing in the ED is performed under the ED CLIA certificate #[id number].Result Comment: lraftisPerformed By: #### [id number] #### [facility] ([facility]) [address] [place] [address]zj 56-16-293344Xak patient is Moderately Unstable - Medium risk of patient condition declining or worsening The patient's goals for the shift include comfort/rest The clinical goals for the shift include stable vital signsNormalUniversity of Ballinger Memorial Hospital DistrictALDOSTERONEon 47-26-9099DFPCKKWFVVZ (NG/DL) IN SER/PLAS16.7 ng/dLNormalUniversSheltering Arms HospitalComment on above:Order Comment: Contacted DEBORA elise [...] reference intervals for this test in the [facility] Test Directory ([employer]ata[employer]). Performed By: [facility] [address] [place] [address] Cathode Washer: Wilfrid Gomez MD, PhD CLIA Number: [id number] By: #### [id number] #### [facility] ([facility]) [address] [place], [place] [address]IRSDW METABOLIC PANELon 91-44-8119Mwllb gap [Moles/Vol] 12 mmol/LNormal7-20UnSelect Medical Specialty Hospital - Southeast OhioComment on above:Performed By: #### [id number] ####[facility] ([facility])[address] [place] [address] Calcium [Mass/Vol]8.2 mg/dLLow8.6-10.3UnSelect Medical Specialty Hospital - Southeast OhioComment on above:Performed By: #### [id number] ####[facility] [place], [place] [address]Cdbvndca [Moles/Vol]104 mmol/XXsdxho27-775MlpemlmqljSelect Medical Specialty Hospital - Southeast OhioComment on above:Performed By: #### [id number] ####[facility] ([facility] [place], [place] [address]JM6 [Moles/Vol]21 mmol/LNormal 21-31UnSelect Medical Specialty Hospital - Southeast OhioComment on above:Performed By: #### [id number] ####[facility] ([facility])[address] [place] [address]Qhurqgzcki [Mass/Vol]3.12 mg/dLHigh0.60-1.20UnSelect Medical Specialty Hospital - Southeast OhioComment on above:Performed By: #### [id number] ####[facility] ([facility])[address] [place], [place] [address]OOMREMLUXG FILTRATION RATE ML/MIN/1.73 SQ M.SYJKHLSTI79.0 mL/min/1.73m*2Low>60.0UnSelect Medical Specialty Hospital - Southeast OhioComment on above:Result Comment: [facility]???s estimated glomerular filtration rate (eGFR) will [...] anyone group of individuals.Performed By: #### [id number] ####[facility] ([facility])[address] [place], [place] [address]Hzatcws [Mass/Vol]103 mg/eTKluf86-960FifhovxlbdSelect Medical Specialty Hospital - Southeast OhioComment on above:Performed By: #### [id number] ####[facility] ([facility])[address] [place], [place] [address]Iqmtfjoxz [Moles/Vol]5.0 mmol/L Normal3.5-5.1UnSelect Medical Specialty Hospital - Southeast OhioComment on above:Performed By: #### [id number] ####[facility] ([facility])[address] [place] [address] Sodium [Moles/Vol]132 mmol/PWpf515-540DkblglyuttSelect Medical Specialty Hospital - Southeast OhioComment on above:Performed By: #### [id number] ####[facility] ([facility])[address] [place], [place] [address]Ymdw nitrogen [Mass/Vol]46 mg/dLHigh7-25UnSelect Medical Specialty Hospital - Southeast OhioComment on above:Performed By: #### [id number] ####[facility] ([facility])[address] [place], [place] [address]FZVY NITROGEN/CREATININE (MASS RATIO) IN SER/PLAS14.7NormalUniversSheltering Arms HospitalComment on above: Performed By: #### [id number] ####[facility] ([facility])[address] [place], [place] [address]EXT WITH AUTO DIFFERENTIALon 56-13-3117Thlrvlltc (Bld) [#/Vol]0.06 10*3/uLNormal0.00-0.20UnSelect Medical Specialty Hospital - Southeast OhioComment on above: Performed By: #### [id number] ####[facility] ([facility])[address] [place], [place] [address]Lndwwyxxt/100 WBC (Bld)1.1 %High0.0-1.0Un[facility] - [facility] [place]Comment on above:Performed By: #### [id number] ####[facility] ([facility])[address] [place], [place] [address]Xxsbkbzgzuz (Bld) [#/Vol]0.26 10*3/uL Normal0.00-0.50Un[facility] - [facility] OhioComment on above:Performed By: #### [id number] ####[facility] ([facility])[address] [place] [address] Eosinophils/100 WBC (Bld)4.8 %Normal0.0-6.0[facility] [place] Comment on above:Performed By: #### [id number] ####[facility] ([facility])[address] [place], [place] [address]Ldzkyhefaet distribution width (RBC) [Ratio]16.4 % High11.5-15.0Un[facility] - [facility] OhioComment on above:Performed By: #### [id number] ####[facility] ([facility])[address] [place] [address] ERYTHROCYTE MEAN CORPUSCULAR HEMOGLOBIN CONCENTRATION (G/DL) BY DTMQTOQSQ35.2 g/sXIkptwe79.0-35.0[facility] [place]Comment on above:Performed By: #### [id number] ####[facility] ([facility])[address] [place], [place] [address]Htlildzvds (Bld) [Volume fraction]33.9 %Low36.0-45.0[facility] - [place]Comment on above:Performed By: #### [id number] ####[facility] ([facility])[address] [place], [place] [address]Xobtxheivp (Bld) [Mass/Vol]10.9 g/dL Low12.0-15.0[facility] - [place]Comment on above:Performed By: #### [id number] ####[facility] ([facility])[address] [place] [address] Immature granulocytes (Bld) [#/Vol]0.02 10*3/uLNormal0.00-0.20Un[facility] [place]Comment on above:Performed By: #### [id number] ####[facility] ([facility])[address] [place], [place] [address]Hzbsqryu granulocytes/100 WBC (Bld)0.4 %Normal0.0-1.0UnSelect Medical Specialty Hospital - Southeast OhioComment on above: Performed By: #### [id number] ####[facility] ([facility] [place], [place] [address]Cmlmxirwbwp (Bld) [#/Vol]1.46 10*3/uLNormal1.20-4.00 [facility] HospitalComment on above:Performed By: #### [id number] ####[facility] ([facility])[address] [place], [place] [address]Onskvobqezn/100 WBC (Bld)27.1 %Zethmm64.0-45.0UnSelect Medical Specialty Hospital - Southeast OhioComment on above:Performed By: #### [id number] ####[facility] ([facility] [place], [place] [address]OUG (RBC) [Entitic mass]29.2 fcQfzbnd42.0-33.0UnSelect Medical Specialty Hospital - Southeast OhioComment on above:Performed By: #### [id number] ####[facility] ([facility])[address] [place], [place] [address]NVQ (RBC) [Entitic vol] 90.9 rOOrcsee40.0-98.0UnSelect Medical Specialty Hospital - Southeast OhioComment on above: Performed By: #### [id number] ####[facility] ([facility])[address] [place], [place] [address]Owfgriups (Bld) [#/Vol]0.63 10*3/uLNormal0.10-1.00UnSelect Medical Specialty Hospital - Southeast OhioComment on above:Performed By: #### [id number] ####[facility] ([facility])[address] [place] [address]Jsrdqtfkn/100 WBC (Bld) 11.7 %Normal5.0-12.0UnSelect Medical Specialty Hospital - Southeast OhioComment on above: Performed By: #### [id number] ####[facility] ([facility])[address] [place], [place] [address]Zdwufpesjgq (Bld) [#/Vol]2.96 10*3/uLNormal1.60-7.60 [facility] HospitalComment on above:Performed By: #### [id number] ####[facility] ([facility])[address] [facility] [place], [place] [address]Pmbgjgowler/100 WBC (Bld)54.9 %Oozdil13.0-72.0UnSelect Medical Specialty Hospital - Southeast OhioComment on above:Performed By: #### [id number] ####[facility] ([facility])[address] [place], [place] [address]QDNR (PER 100 WBCS) BY AUTOMATED COUNT0.0 %Wpqrqs3Tnkmduxwdh of Carmona Medical CenterComment on above:Performed By: #### [id number] ####[facility] ([facility])[address] [place] [address]YHHLGOFVL (10*3/UL) IN BLOOD AUTOMATED [id number] 10*3/rTCmtobn699-720LwkdnuesawSelect Medical Specialty Hospital - Southeast [place] Comment on above:Performed By: #### [id number] ####[facility] ([facility])[address] [place] [address]PJE (Bld) [#/Vol]3.73 10*6/uLLow3.80-5.00UnSelect Medical Specialty Hospital - Southeast OhioComment on above:Performed By: #### [id number] ####[facility] ([facility])[address] [place] [address]MQW (Bld) [#/Vol]5.39 10*3/uLNormal4.00-10.60UnSelect Medical Specialty Hospital - Southeast OhioComment on above: Performed By: #### [id number] ####[facility] ([facility])[address] [place] [address]IBBS GLUCOSE METER UNSOLICITED RESULTSon 48-63-7209Mgwdhlo [Mass/Vol]109 mg/sMLmjj07-009IwfjzuqicvSelect Medical Specialty Hospital - Southeast OhioComment on above:Order Comment: Waived Testing in the ED is performed under the ED CLIA certificate #[id number].Result Comment: anuyitnPerformed By: #### [id number] ####[facility] ([facility])[address] [place] [address]Akfzryn [Mass/Vol]128 mg/gEAlsk13-160HdyrmehuiqSelect Medical Specialty Hospital - Southeast OhioComment on above:Order Comment: Waived Testing in the ED is performed under the ED CLIA certificate #[id number].Result Comment: gwgmjnl3Hmvidodkp By: #### [id number] #### [facility] ([facility]) [address] [place] [address]Kttctdx [Mass/Vol]155 mg/hYTtce87-380ZxleklrcjfSelect Medical Specialty Hospital - Southeast OhioComment on above:Order Comment: Waived Testing in the ED is performed under the ED CLIA certificate #[id number].Result Comment: charpel2 Performed By: #### [id number] #### [facility] ([facility]) [address] [place], [place] [address]Dulzbet [Mass/Vol]109 mg/zQUqll45-308NwpvxtliesSelect Medical Specialty Hospital - Southeast OhioComment on above:Order Comment: Waived Testing in the ED is performed under the ED CLIA certificate #[id number].Result Comment: charpel2 Performed By: #### [id number] #### [facility] ([facility]) [address] [place], [place] [address]FPDZY ACTIVITYon 67-46-8822DUHRN ACTIVITY4.7 ng/mL/hrNormal [facility]ruder HospitalComment on above:Order Comment: Contacted DEBORA elise and explained the collection process of this test. Retimed for tomorrow morningResult Comment: INTERPRETIVE INFORMATION: Renin Activity Adult, Normal sodium diet: Supine ................. 0.2-1.6 ng/mL/hr Upright ................ 0.5-4.0 ng/mL/hr Children, Normal sodium diet, Supine: [place] (1-7 days) ..... 2.0-35.0 ng/mL/hr Cord blood [...] developed and its performance characteristics determined by [facility]. It has not been cleared or approved by the [place] Food and Drug Administration. This test was performed in a CLIA certified laboratory and is intended for clinical purposes. Performed By: [facility] [address] [place] [address] Cathode Washer: Wilfrid Gomez MD, PhD [place] Number: [id number] By: #### [id number] ####[facility] ([facility])[address] [place], [place] [address]hy [id number] patient is Moderately Stable - Low risk [...] needs and coordinate with support and continued care.[facility]30The patient is Moderately Stable - Low risk [...] stability and optimal renal function maintained Outcome: ProgressingNormalUniRiverview Health Institute30The patient is Moderately Stable - Low risk of patient condition declining or worsening The patient's goals for the shift include comfort and sleep The clinical goals for the shift include Stable vital signs, no falls, comfort NormalUnSelect Medical Specialty Hospital - Southeast OhioBASIC METABOLIC PANELon 77-08-6707Zmcjc gap [Moles/Vol]11 mmol/LNormal7-20UnSelect Medical Specialty Hospital - Southeast OhioComment on above:Performed By: #### [id number] #### [facility] ([facility]) [address] [place], [place] [address]Toyrvgu [Mass/Vol]8.8 mg/dLNormal8.6-10.3UnSelect Medical Specialty Hospital - Southeast OhioComment on above:Performed By: #### [id number] #### [facility] ([facility]) [address] [place], [place] [address]Iawcrioo [Moles/Vol]106 mmol/RGivatd57-034YxxvozkwocSelect Medical Specialty Hospital - Southeast OhioComment on above:Performed By: #### [id number] #### [facility] ([facility]) [address] [place], [place] [address]SP9 [Moles/Vol]25 mmol/KKyqsob06-26AvcmrkgvvrSelect Medical Specialty Hospital - Southeast OhioComment on above:Performed By: #### [id number] #### [facility] ([facility]) [address] [place], [place] [address]Orlowfqsxf [Mass/Vol]2.41 mg/dLHigh0.60-1.20UnSelect Medical Specialty Hospital - Southeast OhioComment on above:Performed By: #### [id number] #### [facility] ([facility]) [address] [place], [place] [address]FDYSWSITAW FILTRATION RATE ML/MIN/1.73 SQ M.WQKYAFTEV87.4 mL/min/1.73m*2Low>60.0UnSelect Medical Specialty Hospital - Southeast OhioComment on above:Result Comment: [facility]???s estimated glomerular filtration rate (eGFR) will [...] group of individuals.Performed By: #### [id number] #### [facility] ([facility]) [address] [place], [place] [address]Opwkomq [Mass/Vol]82 mg/fFDvgfgb26-212DwaqnztrgvSelect Medical Specialty Hospital - Southeast OhioComment on above:Performed By: #### [id number] #### [facility] ([facility]) [address] [place], [place] [address]Xoixaqeyd [Moles/Vol]3.9 mmol/LNormal3.5-5.1UnSelect Medical Specialty Hospital - Southeast OhioComment on above:Performed By: #### [id number] #### [facility] ([facility]) [address] [place], [place] [address]Wokwtq [Moles/Vol]138 mmol/FQsyjzm898-544UsorluqbcrSelect Medical Specialty Hospital - Southeast OhioComment on above:Performed By: #### [id number] #### [facility] ([facility]) [address] [place], [place] [address]Mlrz nitrogen [Mass/Vol]38 mg/dLHigh7-25UnSelect Medical Specialty Hospital - Southeast OhioComment on above:Performed By: #### [id number] #### [facility] ([facility]) [address] [place], [place] [address]XOZD NITROGEN/CREATININE (MASS RATIO) IN SER/PLAS15.8Normal [facility]ruder HospitalComment on above:Performed By: #### [id number] #### [facility] ([facility]) [address] [place], [place] [address]BOL WITH AUTO DIFFERENTIALon 70-17-2968Bjdikqhve (Bld) [#/Vol] 0.05 10*3/uLNormal0.00-0.20UnSelect Medical Specialty Hospital - Southeast OhioComment on above: Performed By: #### [id number] #### [facility] ([facility]) [address] [place] [address]Ohkbzvrkd/100 WBC (Bld)1.0 %Normal0.0-1.0UnSelect Medical Specialty Hospital - Southeast OhioComment on above:Performed By: #### [id number] #### [facility] ([facility]) [address] [place] [address]Yaebffwrzbg (Bld) [#/Vol]0.14 10*3/uLNormal0.00-0.50UnSelect Medical Specialty Hospital - Southeast OhioComment on above:Performed By: #### [id number] #### [facility] ([facility]) [address] [place], [place] [address]Wwstlqidgce/100 WBC (Bld)2.7 %Normal0.0-6.0UnSelect Medical Specialty Hospital - Southeast OhioComment on above:Performed By: #### [id number] #### [facility] ([facility]) [address] [place], [place] [address]Npyhfhsyxxt distribution width (RBC) [Ratio]16.6 %High11.5-15.0 [facility]uder HospitalComment on above:Performed By: #### [id number] #### [facility] ([facility]) [address] [place], [place] [address]XYYTIPWZVNA MEAN CORPUSCULAR HEMOGLOBIN CONCENTRATION (G/DL) BY HNELVIFGJ47.4 g/xXBwsdds38.0-35.0UnSelect Medical Specialty Hospital - Southeast OhioComment on above:Performed By: #### [id number] #### [facility] ([facility]) [address] [place], [place] [address]Hkmtyazeee (Bld) [Volume fraction]34.9 %Low36.0-45.0UnSelect Medical Specialty Hospital - Southeast OhioComment on above:Performed By: #### [id number] #### [facility] ([facility]) [address] [place], [place] [address]Zdqhtjuevo (Bld) [Mass/Vol]11.3 g/dLLow12.0-15.0UnSelect Medical Specialty Hospital - Southeast OhioComment on above:Performed By: #### [id number] #### [facility] ([facility]) [address] [facility] [place], [place] [address]Qjwgjehx granulocytes (Bld) [#/Vol]0.01 10*3/uLNormal0.00-0.20 [facility] HospitalComment on above:Performed By: #### [id number] #### [facility] ([facility]) [address] [facility] [place], [place] [address]Lhsgsbzv granulocytes/100 WBC (Bld)0.2 %Normal0.0-1.0UnSelect Medical Specialty Hospital - Southeast OhioComment on above:Performed By: #### [id number] #### [facility] ([facility]) [address] [facility] [place], [place] [address]Zkpjqwrweez (Bld) [#/Vol]1.51 10*3/uLNormal1.20-4.00UnSelect Medical Specialty Hospital - Southeast OhioComment on above:Performed By: #### [id number] #### [facility] ([facility]) [address] [place] [address]Ymfzkilzowa/100 WBC (Bld)28.8 %Ngeijr19.0-45.0UnSelect Medical Specialty Hospital - Southeast OhioComment on above:Performed By: #### [id number] #### [facility] ([facility]) [address] [facility] [place], [place] [address]DAQ (RBC) [Entitic mass]29.6 dgTfnjmh49.0-33.0UnSelect Medical Specialty Hospital - Southeast OhioComment on above:Performed By: #### [id number] #### [facility] ([facility]) [address] [place], [place] [address]FIU (RBC) [Entitic vol]91.4 uMGjsqlu56.0-98.0UnSelect Medical Specialty Hospital - Southeast OhioComment on above:Performed By: #### [id number] #### [facility] ([facility]) [address] [facility] [place], [place] [address]Ncibxospf (Bld) [#/Vol]0.71 10*3/uLNormal0.10-1.00UnSelect Medical Specialty Hospital - Southeast OhioComment on above:Performed By: #### [id number] #### [facility] ([facility]) [address] [place] [address]Zskmhdglv/100 WBC (Bld)13.5 %High5.0-12.0UnSelect Medical Specialty Hospital - Southeast OhioComment on above:Performed By: #### [id number] #### [facility] ([facility]) [address] [place] [address]Cuhyhaqufgg (Bld) [#/Vol]2.82 10*3/uLNormal1.60-7.60UnSelect Medical Specialty Hospital - Southeast OhioComment on above:Performed By: #### [id number] #### [facility] ([facility]) [address] [place] [address]Vjwbswtegja/100 WBC (Bld)53.8 %Julzst65.0-72.0UnSelect Medical Specialty Hospital - Southeast OhioComment on above:Performed By: #### [id number] #### [facility] ([facility]) [address] [place] [address]YGWU (PER 100 WBCS) BY AUTOMATED COUNT0.0 %Ymlbba3FjuvarccetSelect Medical Specialty Hospital - Southeast OhioComment on above:Performed By: #### [id number] #### [facility] ([facility]) [address] [place] [address]FMVUEIUDA (10*3/UL) IN BLOOD AUTOMATED OXIHC249 10*3/uLNormal 150-400UnSelect Medical Specialty Hospital - Southeast OhioComment on above:Performed By: #### [id number] #### [facility] ([facility]) [address] [place] [address]IOK (Bld) [#/Vol]3.82 10*6/uLNormal3.80-5.00UnSelect Medical Specialty Hospital - Southeast OhioComment on above:Performed By: #### [id number] #### [facility] ([facility]) [address] [place] [address]MOZ (Bld) [#/Vol]5.24 10*3/uLNormal4.00-10.60UnSelect Medical Specialty Hospital - Southeast OhioComment on above:Performed By: #### [id number] #### [facility] ([facility]) [address] [place], [place] [address]FYFQVWYha 23-18-9233SBQHYWLJmsjainwtl Consult Note Reason for Consult: NSTEMI, hypertensive [...] DVT/PE, CKD stage IV, LEE. Transfer from [facility] for management of NSTEMI. Patient [...] shortness of breath. She was taken to [facility] and was found to have high systolic blood pressure of 250. Troponin was 243-->324-->419. In [place] she got 2 doses of hydralazine and was also started on nitro drip with no improvement in the blood pressure and was given IV labetalol and was transferred to [facility] for suspected NSTEMI. CT brain was [...] Pneumovax-23 [pneumococcal 23-cruz ps vaccine], Red dye, Kjymjex-icu-ihd reductase inhibitors, and Varenicline Medications Current Outpatient [...] Value Ventricular Rate 71 Atrial Rate 71 SC Interval 158 QRS DURATION 100 QT Interval 464 QTC CALCULATION(BAZETT) 504 P [place] 10 R-[place] 2 T Wave [place] 160 Impression Normal (more content not included)...NormalUnSelect Medical Specialty Hospital - Southeast [place] CONSULTNephrology Consult Note Patient : Marleni Dennis; 74 y.o. Location: [facility]8/4108-01 Attending: Erickson Cabrera MD Admit Date: 03/13/2025 Hospital Day: 0 Reason for Consult: CKD IV with uncontrolled hypertension. History of Present Illness: Marleni Dennis is a 74 y.o. female who was transferred from [facility] after presenting with weakness after a fall as well as uncontrolled hypertension. She has pertinent past medical history of hypertension secondary to renal artery stenosis, CKD IV, CAD s/p CABG and PCI with stent placement, obstructive sleep apnea. 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 She says she has a water pill [...] Dose Status apixaban (Eliquis) 2.5 mg tablet [id number] TAKE 1 TABLET BY MOUTH TWICE A DAY FOR 90 DAYS Historical Provider, Active aspirin 81 mg EC tablet [id number] Take 1 tablet every day by oral route. Historical Provider, Flag for Review buPROPion (Wellbutrin) 75 mg tablet [id number] Yes Take 75 mg by mouth twice a day. Historical Provider, Active carvedilol (Coreg) 12.5 mg tablet [id number] No Take 25 mg by mouth with breakfast and with eveni (more content not included)...NormalUnSelect Medical Specialty Hospital - Southeast OhioCORTISOLon 53-68-6374GYW[place] (UG/DL) IN SER/PLAS8.8 ug/dLNormal6- [facility]uder HospitalComment on above:Performed By: #### [id number] ####[facility] ([facility])[address] [place], [place] [address]MNZE SENSITIVITY TROPONIN Ion 11-06-3712AP TROPONIN I (NG/L)215 ng/LCritically high<15UnSelect Medical Specialty Hospital - Southeast OhioComment on above:Performed By: #### [id number] #### [facility] [address] [place], [place] [address]QR TROPONIN I (NG/L)223 ng/LCritically high<15UnSelect Medical Specialty Hospital - Southeast OhioComment on above:Performed By: #### [id number] ####[facility] ([facility])[address] [place], [place] [address]UH TROPONIN I (NG/L)228 ng/LCritically high<15UnSelect Medical Specialty Hospital - Southeast OhioComment on above: Performed By: #### [id number] #### [facility] ([facility]) [address] [place] [address]EQQUFKQAFim 17-17-6173Cjfqfqbpf [Mass/Vol]2.8 mg/dLHigh1.9-2.7 [facility] HospitalComment on above:Performed By: #### [id number] #### [facility] ([facility]) [address] [place] [address]Gswepckpx [Mass/Vol]1.2 mg/dLLow1.9-2.7UnSelect Medical Specialty Hospital - Southeast OhioComment on above:Performed By: #### [id number] #### [facility] ([facility]) [address] [place] [address]VSBPHRUSda 28-89-6055EYWNGMMDOpbeazo blood glucose is 79 mg/dl. Requesting ID band from registration. Orders noted, diet and water provided to patient. Will review BP and pain to patient's right head with on-call provider.NormalUnSelect Medical Specialty Hospital - Southeast OhioPOCT GLUCOSE METER UNSOLICITED RESULTSon 42-59-5889Ovnmpvd [Mass/Vol]128 mg/dLHigh 70-105UnSelect Medical Specialty Hospital - Southeast OhioComment on above:Order Comment: Waived Testing in the ED is performed under the ED CLIA certificate #[id number].Result Comment: kpsrqsd4Qubgbgucs By: #### [id number] ####[facility] ([facility])[address] [place] [address]Jnaadrh [Mass/Vol]133 mg/fRViop19-441YbrfppsmusSelect Medical Specialty Hospital - Southeast OhioComment on above:Order Comment: Waived Testing in the ED is performed under the ED CLIA certificate #[id number].Result Comment: aborn3 Performed By: #### [id number] ####[facility] ([facility])[address] [place] [address]Qmytifr [Mass/Vol]172 mg/kIYjwu67-410ZzueligjoySelect Medical Specialty Hospital - Southeast OhioComment on above:Order Comment: Waived Testing in the ED is performed under the ED CLIA certificate #[id number].Result Comment: agrunde2 Performed By: #### [id number] ####[facility] ([facility])[address] [place] [address]Cnblikd [Mass/Vol]136 mg/eEBdgv94-893ShixrrmeesSelect Medical Specialty Hospital - Southeast OhioComment on above:Order Comment: Waived Testing in the ED is performed under the ED CLIA certificate #[id number].Result Comment: agrunde2 Performed By: #### [id number] #### [facility] ([facility]) [address] [place] [address]Fxjojfy [Mass/Vol]81 mg/lQSryjvh87-308EfrcsynvscSelect Medical Specialty Hospital - Southeast OhioComment on above:Order Comment: Waived Testing in the ED is performed under the ED CLIA certificate #[id number].Result Comment: charpel2 Performed By: #### [id number] #### [facility] ([facility]) [address] [place] [address]L0, FREEon 36-08-0898HMCGMZUCL (T4) FREE (NG/DL) IN SER/PLAS1.23 ng/dLNormal0.71-1.85UnSelect Medical Specialty Hospital - Southeast OhioComment on above: Performed By: #### [id number] #### [facility] ([facility]) [address] [place] [address]FOL3 REFLEX TO FT4on 53-74-3235HMIVNQVBCAQ (MIU/L) IN SER/PLAS BY DETECTION LIMIT <= 0.05 MIU/L6.01 mIU/LHigh0.34-5.60UnSelect Medical Specialty Hospital - Southeast OhioComment on above:Performed By: #### [id number] #### [facility] ([facility]) [address] [place], [place] [address]KYN (INCLUDES DIFF/PLT)on 60-53-6981Qxtusrisp (Bld) [#/Vol]0.042 10*3/uLNormal0-200Quest DiagnosticsComment on above:Performed By: #### 7600, 72387, 6399, 01915, 899 #### [facility] of [address], [address] [place] [address] Machine Hose Cutter: Figueroa Jacques MDBasophils/100 WBC (Bld)0.8 %NormalQuest DiagnosticsComment on above:Performed By: #### 7600, 27132, 6399, 89870, 899 #### [facility] of [address], [address] [place] [address] Machine Hose Cutter: Figueroa Jacques MDEosinophils (Bld) [#/Vol]0.25 10*3/uLNormal 15-500Quest DiagnosticsComment on above:Performed By: #### 7600, 67324, 6399, 74568, 899 #### [facility] of [place] [address] Machine Hose Cutter: Figueroa Jacques MDEosinophils/100 WBC (Bld)4.8 %NormalQuest DiagnosticsComment on above:Performed By: #### 7600, 49739, 6399, 19490, 899 #### [facility] of [place] [address] Machine Hose Cutter: Figueroa Jacques MDErythrocyte distribution width (RBC) [Ratio] 14.8 %Fpdxsk73.0-15.0Quest DiagnosticsComment on above:Performed By: #### 7600, 95909, 6399, 43573, 899 #### [facility] of [place] [address] Machine Hose Cutter: Figueroa Jacques MDHematocrit (Bld) [Volume fraction]36.8 %Normal 35.0-45.0Quest DiagnosticsComment on above:Performed By: #### 7600, 74666, 6399, 99642, 899 #### [facility] of [place] [address] Machine Hose Cutter: Figueroa Jacques MDHemoglobin (Bld) [Mass/Vol]11.9 g/dLNormal 11.7-15.5Quest DiagnosticsComment on above:Performed By: #### 7600, 24063, 6399, 56193, 899 #### [facility] of [address], [address] [place] [address] Machine Hose Cutter: Figueroa Jacques MDLymphocytes (Bld) [#/Vol]1.737 10*3/uLNormal 850-3900Quest DiagnosticsComment on above:Performed By: #### 7600, 74930, 63, 70643, 899 #### [facility] of [address], [address] [place] [address] Machine Hose Cutter: Figueroa Jacques MDLymphocytes/100 WBC (Bld)33.4 %NormalQuest DiagnosticsComment on above:Performed By: #### 7600, 27399, 63, 98372, 899 #### [facility] of [address], [address] [place] [address] Machine Hose Cutter: Figueroa Jacques MDMCH (RBC) [Entitic mass]28.7 ogZoflbe21.0-33.0 Quest DiagnosticsComment on above:Performed By: #### 7600, 95556, 63, 28001, 899 #### [facility] of [place] [address] Machine Hose Cutter: Figueroa Jacques MDMCHC (RBC) [Mass/Vol]32.3 g/dZUlmuae15.0-36.0 Quest DiagnosticsComment on above:Result Comment: For adults, a slight decrease in the calculated MCHC value (in the range of 30 to 32 g/dL) is most likely not clinically significant; however, it should be interpreted with caution in correlation with other red cell parameters and the patient's clinical condition.Performed By: #### 7600, [id number], 63, 83621, 899 #### [facility] [place] [address] Machine Hose Cutter: Figueroa Jacques MDMCV (RBC) [Entitic vol]88.7 gWItkhkd46.0-100.0 [facility]osticsComment on above:Performed By: #### 7600, [id number], 6399, 20213, 899 #### [facility] of [address], [address] [place] [address] Machine Hose Cutter: Figueroa Jacques MDMonocytes (Bld) [#/Vol]0.51 10*3/uLNormal 200-950Quest DiagnosticsComment on above:Performed By: #### 7600, 28092, 6399, 87979, 899 #### [facility] of [address], [address] [place] [address] Machine Hose Cutter: Figueroa Jacques MDMonocytes/100 WBC (Bld)9.8 %NormalQuest DiagnosticsComment on above:Performed By: #### 7600, 98745, 6399, 13044, 899 #### [facility] of [address], [address] [place] [address] Machine Hose Cutter: iFgueroa Jacques MDNeutrophils (Bld) [#/Vol]2.662 10*3/uLNormal 1500-7800Quest DiagnosticsComment on above:Performed By: #### 7600, 26026, 6399, 48460, 899 #### [facility] of [address], [address] [place] [address] Machine Hose Cutter: Figueroa Jacques MDNeutrophils/100 WBC (Bld)51.2 %NormalQuest DiagnosticsComment on above:Performed By: #### 7600, 80832, 6399, 87987, 899 #### [facility] of [address], [address] [place] [address] Machine Hose Cutter: Figueroa Jacques MDPlatelet mean volume (Bld) [Entitic vol]10.6 fLNormal7.5-12.5Quest DiagnosticsComment on above:Performed By: #### 7600, 63608, 6399, 17596, 899 #### [facility] of [address], [address] [place] [address] Machine Hose Cutter: Figueroa Jacques MDPlatecardinal [facility] ([facility]) [#/Vol]205 10*3/uLNormal 140-400Quest DiagnosticsComment on above:Performed By: #### 7600, 21509, 6399, 36180, 899 #### [facility] of [address], [address] [place] [address] Machine Hose Cutter: Figueroa Jacques [facility] [#/Vol]4.15 10*6/uLNormal3.80-5.10 Quest DiagnosticsComment on above:Performed By: #### 7600, 86187, 6399, 18649, 899 #### [facility] of [place] [address] Machine Hose Cutter: Figueroa Jacques [facility] [#/Vol]5.2 10*3/uLNormal3.8-10.8 Quest DiagnosticsComment on above:Performed By: #### 7600, 42181, 6399, 35179, 899 #### [facility] of [place] [address] Machine Hose Cutter: Figueroa Jacques MDCOMPREHENSIVE METABOLIC PANELon 01-02-2025 Albumin [Mass/Vol]3.9 g/dLNormal3.6-5.1Quest DiagnosticsComment on above: Performed By: #### 7600, 53121, 6399, 84455, 899 #### [facility] of [place] [address] Machine Hose Cutter: Figueroa Jacques MDAlbumin/Globulin [Mass ratio]1.5 {ratio}Normal 1.0-2.5Quest DiagnosticsComment on above:Performed By: #### 7600, 20586, 6399, 34457, 899 #### [facility] of [place] [address] Machine Hose Cutter: Figueroa Jacques MDALP [Catalytic activity/Vol]45 U/LGtzryk11-348 Quest DiagnosticsComment on above:Performed By: #### 7600, 97416, 6399, 40117, 899 #### [facility] of [place] [address] Machine Hose Cutter: Figueroa Jacques MDALT [Catalytic activity/Vol]4 U/LLow6-29Quest DiagnosticsComment on above:Performed By: #### 7600, 70024, 6399, 55728, 899 #### [facility] of [place] [address] Machine Hose Cutter: Figueroa Jacques MDAST [Catalytic activity/Vol]14 U/LVmzgoe36-65 Quest DiagnosticsComment on above:Performed By: #### 7600, 55228, 6399, 78199, 899 #### [facility] of [place] [address] Machine Hose Cutter: Figueroa Jacques MDBilirubin [Mass/Vol]0.6 mg/dLNormal0.2-1.2 Quest DiagnosticsComment on above:Performed By: #### 7600, 14207, 6399, 85848, 899 #### [facility] of [place] [address] Machine Hose Cutter: Figueroa Jacques MDCalcium [Mass/Vol]9.2 mg/dLNormal8.6-10.4Quest DiagnosticsComment on above:Performed By: #### 7600, 59312, 6399, 61167, 899 #### [facility] of [place] [address] Machine Hose Cutter: Figueroa Jacques MDChloride [Moles/Vol]108 mmol/RIqyfou83-724 Quest DiagnosticsComment on above:Performed By: #### 7600, 29458, 6399, 40289, 899 #### [facility] of [place] [address] Machine Hose Cutter: Figueroa Jacques MDCO2 [Moles/Vol]24 mmol/OLljqjs71-82Agxxh DiagnosticsComment on above:Performed By: #### 7600, 79357, 63, 99995, 899 #### [facility] [place] [address] Machine Hose Cutter: Figueroa OCHOAreatinine [Mass/Vol]2.01 mg/dLHigh0.60-1.00 Quest DiagnosticsComment on above:Performed By: #### 7600, 05626, 63, 63089, 899 #### [facility] [place] [address] Machine Hose Cutter: Figueroa Jacques MDGFR/1.73 sq M.predicted among non-blacks MDRD (S/P/Bld) [Vol rate/Area]25 mL/min/{1.73_m2}Low> OR = 60Quest DiagnosticsComment on above:Performed By: #### 7600, 02814, 6398, 76307, 899 #### [facility] [place] [address] Machine Hose Cutter: Figueroa Jacques MDGlobulin (S) [Mass/Vol]2.6 g/dLNormal1.9-3.7 Quest DiagnosticsComment on above:Performed By: #### 7600, 38077, 63, 37817, 899 #### [facility] [place] [address] Machine Hose Cutter: Figueroa Jacques MDGlucose [Mass/Vol]103 mg/fVQmci07-89Waoir DiagnosticsComment on above:Result Comment: Fasting reference interval For someone without known diabetes, a glucose value between 100 and 125 mg/dL is consistent with prediabetes and should be confirmed with a follow-up test.Performed By: #### 7600, 14480, 63, 91610, 899 #### [facility] [place] [address] Machine Hose Cutter: Figueroa Jacques MDPotassium [Moles/Vol]4.4 mmol/LNormal3.5-5.3 Quest DiagnosticsComment on above:Performed By: #### 7600, 51228, 6399, 82694, 899 #### [facility] of [place] [address] Machine Hose Cutter: Figueroa Jacques MDProtein [Mass/Vol]6.5 g/dLNormal6.1-8.1Quest DiagnosticsComment on above:Performed By: #### 7600, 23803, 6399, 45533, 899 #### [facility] of [address], [address] [place] [address] Machine Hose Cutter: Figueroa Jacques MDSodium [Moles/Vol]141 mmol/ADepddc851-785Uzdgq DiagnosticsComment on above:Performed By: #### 7600, 22380, 6399, 89010, 899 #### [facility] of [address], [address] [place] [address] Machine Hose Cutter: Figueroa Jacques MDUrea nitrogen [Mass/Vol]27 mg/dLHigh7-25Quest DiagnosticsComment on above:Performed By: #### 7600, 83344, 6399, 69913, 899 #### [facility] [place] [address] Machine Hose Cutter: Figueroa Jacques MDUrea nitrogen/Creatinine [Mass ratio]13 mg/mg Normal6-22Quest DiagnosticsComment on above:Performed By: #### 7600, 19563, 6399, 62180, 899 #### [facility] of [place] [address] Machine Hose Cutter: Figueroa Jacques MDLIPID PANEL, STANDARD 89-00-8399Bqwqsmwcadq [Mass/Vol]138 mg/dLNormal<200Quest DiagnosticsComment on above:Order Comment: FASTING:YES FASTING: YESPerformed By: #### 7600, 86274, 6399, 57151, 899 #### [facility] of [place] [address] Machine Hose Cutter: Figueroa Jacques MDCholesterol in HDL [Mass/Vol]37 mg/dLLow> OR = 50Quest DiagnosticsComment on above:Order Comment: FASTING:YES FASTING: YESPerformed By: #### 7600, 94092, 6399, 63088, 899 #### [facility] [address], [address] [place] [address] Machine Hose Cutter: Figueroa OCHOAholesterol in LDL [Mass/Vol]76 mg/dLNormal Quest DiagnosticsComment on [...] LDL-C. Andres SS et al. NICOLE. 2013;310(19): 3232-1401 (http://education.Smartzer.[employer]/faq/GZI924)Performed By: #### 7600, 71232, 6399, 25375, 899 #### [facility] [address], [address] [place] [address] Machine Hose Cutter: Figueroa Brooks.total/Cholesterol in HDL [Mass ratio]3.7 {ratio}Normal<5.0Quest DiagnosticsComment on above:Order Comment: FASTING:YES FASTING: YESPerformed By: #### 7600, 78151, 6399, 96617, 899 #### [facility] [address], [address] [place] [address] Machine Hose Cutter: Figueroa SILVA HDL HULWJYQBXWG528 mg/dL (calc)Normal<130 Quest DiagnosticsComment on above:Order Comment: FASTING:YES FASTING: YESResult Comment: For patients with diabetes plus 1 major ASCVD risk factor, treating to a non-HDL-C goal of <100 mg/dL (LDL-C of <70 mg/dL) is considered a therapeutic option.Performed By: #### 7600, 04556, 6399, 63050, 899 #### [facility] of [place] [address] Machine Hose Cutter: Figueroa Jacques MDTriglyceride [Mass/Vol]153 mg/dLHigh<150Quest DiagnosticsComment on above:Order Comment: FASTING:YES FASTING: YESPerformed By: #### 7600, 98059, 6399, 66591, 899 #### [facility] of [place] [address] Machine Hose Cutter: Figueroa Jacques MDT3, [facility] 69-02-2522Hmvz T3 [Mass/Vol]2.7 pg/mLNormal2.3-4.2Quest DiagnosticsComment on above:Performed By: #### 3020, 95091, %SBCULI, 6399 #### [facility] of [place] [address] Machine Hose Cutter: Figueroa Jacques MDT4, [facility] 32-11-2847Vkui T4 [Mass/Vol]1.2 ng/dLNormal0.8-1.8Quest DiagnosticsComment on above:Performed By: #### 7600, 91824, 6399, 67423, 899 #### [facility] of [place] [address] Machine Hose Cutter: Figueroa MURILLOSan [facility] 48-24-7263GWF Qn3.82 m[IU]/LNormal 0.40-4.50Quest DiagnosticsComment on above:Performed By: #### 3020, 72754, %SBCULI, 6399 #### [facility] of [place] [address] Machine Hose Cutter: Figueroa Jacques MDLaboratory - Hematology and Cell countson 48-33-7501LaH0e (Bld) [Mass fraction]5 %NOMS HealthcareNo Panel Informationon 56-54-3282JQGK HealthcareAmbulatory Visit Summaryon 95-52-1434Hbjllhcvus Visit SummaryAmbulatory Visit Summary MARLENI DENNIS :1950 Visit Date:11/18/2024 Ambulatory Visit Instructions Your Diagnosis Kidney lesion Urge incontinence 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 Your Care Team Attending Physician - Alfredo CARDENAS MD Primary Care Physician - JACK VOGT MD This Is Your Medications List mirabegron (mirabegron [...] mg Tab) nitroglycerin (nitroglycerin 0.4 mg SubL Grant) pantoprazole (Pantoprazole [address] Tab) pregabalin [...] Follow-Up Appointments Monday2025 1:15 PM EDT With: RONALD BEAULIEU, Alfredo Moya Where: [facility] of [address] [address]- You Need to Schedule the Following Appointments Follow Up with RONALD BEAULIEU, SONIA Montelongo When: Where: [facility] [address], [place] [phone] Medications What How Much When Instructions New mirabegron (mirabegron 50 mg oral tablet, extended release) 1 Tablets By Mouth Every day Refills: 11 Pickup at [facility]/pharmacy #[id number] Unchanged apixaban (Eliquis 2.5 mg oral tablet) [...] concerns Unchanged nitroglycerin (nitroglycerin 0.4 mg SubL Grant) Sublingual Every 5 minutes Contact prescribing physician [...] physician if questions or concerns Pharmacy Information [facility]/pharmacy #[id number]: [address], [place] [id number] [phone] What How Much When Comments Stop Taking oxybutynin (oxybutynin 10 mg ER Tab) 1 Tablets By Mouth Every day Allergies iodine (Rash) shellfish (Unknown) statins (Unknown) Problems Ongoing - Any problem that you are currently receiving treatment for. 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 Kidney lesion Osteoporosis Urge incontinence Historical - Any problem that you are no longer receiving treatment for. Heart disease Hyperlipidem (more content not included)...[facility] Reminderson [id number]t From: Pati Akins To: EU - Recalls Cardenas; Sent: 11/18/2024 14:29:07 EST Show up: 09/18/2025 14:28:00 EST Subject: MRI of ABD Due Date/Time: 10/13/2025 14:28:00 EST Reminder/Recall Patient is due for ABD MRI w contrast prior to November 2025 appt/ [facility]Cl[facility] Noteon [id number] Office/Clinic NoteUrology Office/Clinic Note Chief Complaint 6 [...] qd. Possible SEs discussed. Rx sent to [facility]. -Cont double void maneuvers 3. 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 Elevated risk for periop complications in the future. Follow-up With When Contact Information Alfredo CARDENAS MD, URL [facility] [address], [place] [phone] Additional Instructions: 1 yr w/ MRI Patient Education Kegel Exercises I, Mayte Vogt, personally scribed for Dr. Cardenas on 11/18/2024 14:24:00. . Documentation recorded by the scribeMayte, accurately reflects the services(s) I performed and decisions made by me. Authenticated by Dr. Cardenas on 11/18/2024 14:26:13. Problem List/Past Medical History Ongoing 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 Kidney lesion Osteoporosis Urge incontinence Historical Heart disease Hyperlipidemia Hypertension Infarction of heart Procedure/Surgical History Cholecystectomy, Colonoscopy, Procedure on back, Tonsillectomy. Medication (more content not included)...[facility] Comment on above:Result Comment: Electronically Signed By: Alfredo CARDENAS MD\.br\Date and Time Signed: 11/18/24 14:26 EST\.br\Electronically Co-Signed By: Mayte Vogt\.br\Date and Time Co-Signed: 03/03/25 14:24 ESTReminderson 30-06-7430NsqsvkmysPqbzrdhge From: MIGUEL Thomson APRN, Maria Luisa Pritchard To: DARREL Cardenas; Sent: 03/19/2024 15:06:49 EDT Show up: 08/18/2024 15:06:00 EST Subject: Reminder Message Reminder Message MRI abdomen with and without IV contrast for kidney lesion surveillance. Follow- up appointment scheduled September Order for MRI and accompanying paperwork faxed to [facility] Central scheduling today. They will call pt to schedule. Pt is scheduled today at 2pm for MRI and creatinine draw. Will monitor Results in chart for review Results in chart for reviewMer[facility] CREATININEon [id number] [Mass/Vol]1.56 mg/dLHigh0.55 - 1.02 mg/dLNOMercy Hospital St. John'sGFR/1.73 sq M.predicted CKD-EPI (S/P/Bld) [Vol rate/Area]39Low>=60 mL/min/1.73m [facility] HealthcareInterpretation and review of laboratory resultsAbForest View Hospital EGFR-NON AF ZXRXRSPI57Pmv>=60 mL/min/1.73m [facility] HealthcareCLINISYNCHANNING HOME Uerrcodjkh65kp [id number] echo result from 05/10/2024: MD Kari Castellano MA Echo was ok, follow up in 1 year. [facility] informed.[facility] HospitalOffice Visiton [id number]-up [id number] Marleni Dennis 1950 F Date Provider Department Center 04/24/2024 [facility]-S[facility]IN AGUILERA CARD [facility] Family History Problem Relation Age of Onset Coronary artery disease Mother Stroke Mother Coronary artery disease Father Ovarian cancer Sister Family Status - Relation Status Age at Mother Father Sister Level of Service:31536 [place] OFFICE/OUTPATIENT ESTABLISHED MOD MDM 30 [facility]-19-2024 Urology Office/Clinic NoteUrology [...] with voice recognition artificial intelligence software, specifically [employer], [employer] and or [employer]. Substitutions may have occurred due to the [...] 0 -Continue oxybutynin, call for refills Ordered: [id number] Measure Post Void residual urine and/or bladder [...] months for continued monitoring 3. 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 (Z79.01: USP (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) On Eliquis Follow-up With When Contact Information RONALD BEAULIEU, Alfredo R, URL [facility] [address], [place] [phone] Additional Instructions: 6 mos w/ MRI Patient [...] tablet, extended release nitroglycerin 0.4 mg SubL Grant, SubLingual, q5min oxybutynin 10 mg ER Tab, [...] virus vaccine, inactivated 07/04/2022 Recorded SARS-CoV-2 (COVID-19) mRNAMUL.ORD![id number] 07/04/2022 Recorded influenza virus vaccine, inactivated 06/24/2021 Recorded SARS-CoV-2 (COVID-19) mRNA BNT-162b2 vax 06/24/2021 Recorded 2022-09-26: TPV70 SARS-CoV-2 (COVID-19) mRNA BNT-162b2 vax 11/17/2020 Recorded 2022-09-26: TPV70 SARS-CoV-2 (COVID-19) mRNA BNT-162b2 vax 10/27/2020 Recorded 2022-09-26: TPV70 influenza virus vaccine, inactivated 07/08/2020 Recorded [1] URO- review MRI, start Oxybutynin; RONALD BEAULIEU (more content not included)... [facility] HospitalComment on above:Result Comment: Electronically Signed By: MIGUEL Thomson APRN, Maria Luisa Pritchard\.br\Date and Time Signed: 03/19/24 15:09 EDTCBC AUTO DIFFon [id number] #0.1 103/ulNormal0.0-0.1Clermont County HospitalComment on above:Performed By: #### CBC #### [facility] [address] [address] [address] Aryan PettyBasophils/100 WBC (Bld)1.4 %Normal0.2-2.0[facility] Comment on above:Performed By: #### CBC #### [facility] [address] [address] [address] Aryan Loza #0.6 103/ulNormal0.0-0.7The [facility] HospitalComment on above: Performed By: #### CBC #### [facility] [address] [address] [address] Aryan Bensonosinophils/100 WBC (Bld)7.7 %Critically high0.9-7.0The [facility] HospitalComment on above:Performed By: #### CBC #### [facility] [address] [address] [address] Aryan Bensonrythrocyte distribution width (RBC) [Ratio]16.4 %Critically high 11.0-15.0The [facility] HospitalComment on above:Performed By: #### CBC #### [facility] [address] [place] [address] Dr. Aryan PettyHematocrit (Bld) [Volume fraction]40.6 %Nshblm61.0-48.0The [facility] HospitalComment on above:Performed By: #### CBC #### [facility] [address] [place] [address] Dr. Aryan PettyHemoglobin (Bld) [Mass/Vol]12.9 g/oHMcdfdj38.0-16.0The [facility] HospitalComment on above:Performed By: #### CBC #### [facility] [address] [place] [address] Dr. Aryan PettyIG #0.03 10e3/ulNormal0.00-0.03The [facility] HospitalComment on above:Performed By: #### CBC #### [facility] [address] [place] [address] Dr. Aryan PettyIG %0.4 %Normal0.0-0.5The [facility] HospitalComment on above: Performed By: #### CBC #### [facility] [address] [place] [address] Dr. Aryan Vogt #2.6 103/ulNormal1.2-3.8The [facility] HospitalComment on above:Performed By: #### CBC #### [facility] [address] [place] [address] Dr. Aryan Nogueramphocytes/100 WBC (Bld)35.5 %Ovpakk00.5-60.0The [facility] HospitalComment on above:Performed By: #### CBC #### [facility] [address] [place] [address] Dr. Aryan RussellUAL DIFF REQNONormalThe [facility] HospitalComment on above: Performed By: #### CBC #### [facility] [address] [place] [address] Dr. Aryan Del Angel (RBC) [Entitic mass]26.5 pgCritically low26.7-34.0The [facility] HospitalComment on above:Performed By: #### CBC #### [facility] [address] [place] [address] Dr. Aryan Booker (RBC) [Mass/Vol]31.8 g/jUTuvlnh45.9-35.2The [facility] HospitalComment on above:Performed By: #### CBC #### [facility] [address] [place] [address] Dr. Aryan Lugo (RBC) [Entitic vol]83.5 uJFvdthk65.0-99.0The [facility] HospitalComment on above:Performed By: #### CBC #### [facility] [address] [place] [address] Dr. Aryan Sharma #0.7 103/ulNormal0.3-0.8The [facility] HospitalComment on above:Performed By: #### CBC #### [facility] [address] [place] [address] Dr. Aryan Fairchildocytes/100 WBC (Bld)9.9 %Normal1.7-12.0The [facility] Comment on above:Performed By: #### CBC #### [facility] [address] [place] [address] Dr. Aryan Tijerina #3.3 103/ulNormal1.4-6.5The [facility] HospitalComment on above:Performed By: #### CBC #### [facility] [address] [place] [address] Dr. Aryan Gutierrezutrophils/100 WBC (Bld)45.1 %Sjmthx23.0-75.0The [facility] HospitalComment on above:Performed By: #### CBC #### [facility] [address] [place] [address] Dr. Aryan Louislet mean volume (Bld) [Entitic vol]11.0 fLNormal9.5-13.5The [facility] HospitalComment on above:Performed By: #### CBC #### [facility] [address] [place] [address] Dr. Aryan PettyPLT270 103/geDjbemu521-285YvfClermont County HospitalComment on above: Performed By: #### CBC #### [facility] [address] [place] [address] Dr. Aryan PettyRBC4.86 106/ulNormal4.20-5.40The [facility] HospitalComment on above:Performed By: #### CBC #### [facility] [address] [place] [address] Dr. Aryan PettyWBC7.4 103/ulNormal4.0-11.0The [facility] HospitalComment on above: Performed By: #### CBC #### [facility] [address] [place] [address] Dr. Aryan JustiecID PROFILEon 50-01-4639APOU-HDL RATIO NORMSEE [facility] HospitalComselect [facility] hospital-[facility] on above:Result Comment: 3.3 - 4.4 LOW RISK 4.4 - 7.1 AVERAGE RISK 7.1 - 11.0 MODERATE RISK >11.0 HIGH RISKPerformed By: #### CMP, LIPID #### [facility] [address] [place] [address] Dr. Aryan Alexandraesterol [Mass/Vol]189 mg/dLNormal<=200[facility] Comment on above:Performed By: #### CMP, LIPID #### [facility] [address] [place] [address] Dr. Aryan PettyCholesterol in HDL [Mass/Vol]30 mg/dLCritically src21-40Myp [facility] on above:Performed By: #### CMP, LIPID #### [facility] [address] [place] [address] Dr. Aryan Alexandraesterol in LDL [Mass/Vol]101.6 mg/dLTriHealth Bethesda North Hospital on above:Performed By: #### CMP, LIPID #### [facility] [address] [place] [address] Dr. Aryan Alexandraestermao.total/Cholesterol in HDL [Mass ratio]6.3 {ratio} NormalThe Parma Community General Hospitalment on above:Performed By: #### CMP, LIPID #### [facility] [address] [place] [address] Dr. Aryan Armendariz NORMAL> or = 60 mg/dl - LOW CARDIOVASCULAR RISK <40 mg/dl - HIGH CARDIOVASCULAR RISKWVUMedicine Barnesville HospitalComment on above:Performed By: #### CMP, LIPID #### [facility] [address] [place] [address] Dr. Aryan PettyLDL CALC NORMALSEE BELOWWVUMedicine Barnesville HospitalComment on above:Result Comment: <100 mg/dl OPTIMAL 100 - 129 mg/dl NEAR OR ABOVE OPTIMAL 130 - 159 mg/dl BORDERLINE HIGH 160 - 189 mg/dl HIGH >190 mg/dl VERY HIGH Performed By: #### CMP, LIPID #### [facility] [address] [place] [address] Dr. Aryan PettyTriglyceride [Mass/Vol]287 mg/dLCritically high<=150The [facility] on above:Performed By: #### CMP, LIPID #### [facility] [address] [place] [address] Dr. Aryan PettyVLDL CALC57.4 mg/dLNoCrystal Clinic Orthopedic CenterComselect specialty hospital-[facility] on above: Performed By: #### CMP, LIPID #### [facility] [address] [place] [address] Dr. Aryan PettyPROF 14(COMP METB)on [id number] [Mass/Vol]3.6 g/dLNormal 3.4-5.0The [facility] on above:Performed By: #### CMP, LIPID #### [facility] [address] [place] [address] Dr. Aryan PettyAlbumin/Globulin [Mass ratio]0.8 {ratio}NormalThe [facility] on above:Performed By: #### CMP, LIPID #### [facility] [address] [place] [address] Dr. Aryan AbreuP [Catalytic activity/Vol]86 U/PBlfhtl31-057Qdv Lynn HospitalComment on above:Performed By: #### CMP, LIPID #### [facility] [address] [address] [address] Aryan Acharya [Catalytic activity/Vol]21 U/NFvrpoy49-49Hnv [facility] HospitalComment on above:Performed By: #### CMP, LIPID #### [facility] [address] [address] [address] Aryan Starkon gap [Moles/Vol]13.1 mmol/LNormalThe [facility] Comment on above:Performed By: #### CMP, LIPID #### [facility] [address] [address] [address] Aryan PettyAST [Catalytic activity/Vol]27 U/KRtnycz10-05Zdz [facility] HospitalComment on above:Performed By: #### CMP, LIPID #### [facility] [address] [address] [address] Aryan PettyBilirubin [Mass/Vol]0.4 mg/dLNormal0.2-1.0[facility] Comment on above:Performed By: #### CMP, LIPID #### [facility] [address] [address] [address] Aryan PettyCalcium [Mass/Vol]9.4 mg/dLNormal8.5-10.1[facility] Comment on above:Performed By: #### CMP, LIPID #### [facility] [address] [address] [address] Aryan PettyChloride [Moles/Vol]103 mmol/CUhxhqe30-775[facility] Comment on above:Performed By: #### CMP, LIPID #### [facility] [address] [address] [address] Aryan PettyCO2 [Moles/Vol]27.6 mmol/URdgjat10.0-32.0[facility] Comment on above:Performed By: #### CMP, LIPID #### [facility] [address] [address] [address] Aryan PettyCreatinine [Mass/Vol]2.21 mg/dLCritically high0.55-1.02The [facility] HospitalComment on above:Performed By: #### CMP, LIPID #### [facility] [address] [address] [address] Aryan BensonGFR-AF JBEXZCAP88 mL/min/1.17c2Mjtwdohrpe low>=60The [facility] HospitalComment on above:Performed By: #### CMP, LIPID #### [facility] [address] [address] [address] Aryan BensonGFR-NON AF ADSZTOYZ72 mL/min/1.57o0Qdimgdssts low>=60The [facility] HospitalComment on above:Performed By: #### CMP, LIPID #### [facility] [address] [place] [address] Dr. Aryan PettyGlobulin (S) [Mass/Vol]4.6 g/dLNormalThOhioHealth Grant Medical CenterComment on above:Performed By: #### CMP, LIPID #### [facility] [address] [place] [address] Dr. Aryan PettyGlucose [Mass/Vol]120 mg/dLCritically ikwm01-098YmsClermont County HospitalComment on above:Performed By: #### CMP, LIPID #### [facility] [address] [place] [address] Dr. Aryan PettyPotassium [Moles/Vol]4.0 mmol/LNormal3.5-5.1[facility] Comment on above:Performed By: #### CMP, LIPID #### [facility] [address] [place] [address] Dr. Aryan PettyProtein [Mass/Vol]8.2 g/dLNormal6.4-8.2[facility] Comment on above:Performed By: #### CMP, LIPID #### [facility] [address] [place] [address] Dr. Aryan PettySodium [Moles/Vol]140 mmol/JXrxrtu063-068NcyClermont County Hospital Comment on above:Performed By: #### CMP, LIPID #### [facility] [address] [place] [address] Dr. Aryan PettyUrea nitrogen [Mass/Vol]29.0 mg/dLCritically high7.0-18.0[facility] HospitalComment on above:Performed By: #### CMP, LIPID #### [facility] [address] [place], [place] [address] Dr. Aryan PettyUrea nitrogen/Creatinine [Mass ratio]13.1 mg/mgNormalThOhioHealth Grant Medical CenterComment on above:Performed By: #### CMP, LIPID #### [facility] [address] [place], [place] [address] Dr. Aryan PettyUS CAROTID ART BILon [id number] CAROTID ART BILEXAMINATION: US CAROTID ART TEJ [...] Electronically authenticated by: TONYA GARCIA Date: 2023-01-10 15:[address] [place], [place] [address]XR DEXA BONE DENSITYon [id number] DEXA BONE DENSITY EXAMINATION: XR DEXA BONE [...] . -28.3% change since prior study. IMPRESSION: [facility] Organization Classification: Osteoporosis - High Fracture Risk Electronically authenticated by: TONYA GARCIA Date: 2022-09-07 16:41NoCrystal Clinic Orthopedic CenterMRI ABDOMEN WO W CONon [id number] ABDOMEN WO W CONEXAM: MRI ABDOMEN WO [...] Electronically authenticated by: RYLAN HOPKINS Date: 2022-09-01 12:43[facility] HospitalCREATININEon [id number] [Mass/Vol]2.23 mg/dL Critically high0.55-1.02[facility] HospitalComment on above:Performed By: #### CREA ####[facility] [address] [address]Dr. Yilan ChangEGFR-AF FFYQYHDP12 mL/min/1.83k2Mhyvmjscuv low>=60[facility] HospitalComment on above:Performed By: #### CREA ####[facility] [address] [address]Dr. Yilan ChangEGFR-NON AF RZJKKAWP10 mL/min/1.41n4Lwojcnebyz low>=60[facility] HospitalComment on above: Performed By: #### CREA ####[facility] [address] [address]Dr. Yilan ChangECHOCARDIO M/2D COMPLETEon 03-16-2022 ECHOCARDIO M/2D COMPLETEPatient: MARLENI DENNIS Exam Date: 03/16/2022 : 1950 Gender:F Ordering : JOHN LUTHER Admission #: [id number] Family : DR JACK VOGT M.D. Order #: [id number] CLICK HERE TO VIEW EXAM ECHOCARDIOGRAM REPORT [...] by: Sachin Aguilera M.D. on 03/16/2022 at 16:36[facility] HospitalBNPon [id number] peptide B (Bld) [Mass/Vol]553.0 pg/mLNormal <=900.0The [facility] HospitalComment on above:Performed By: #### BNP, BMP ####[facility] Tcvgmi[address] [place], [place] [address]Dr. Yilan ChangPROF CHEM 8 (BAS METB)on 58-02-7280Uygdd gap [Moles/Vol]14.9 mmol/L NormalThe [facility] HospitalComment on above:Performed By: #### BNP, BMP ####[facility] Gwprliisk[address] [place], [place] [address]Dr. Yilan ChangCalcium [Mass/Vol]9.1 mg/dLNormal8.5-10.1The [facility] HospitalComment on above:Performed By: #### BNP, BMP ####[facility] S[address]ztw[address] [place], [place] [address]Dr. Yilan ChangChloride [Moles/Vol]102 mmol/L Eiogrv29-720Azw [facility] HospitalComment on above:Performed By: #### BNP, BMP ####[facility] Odgwgzjfvz[address] [place], [place] [address]Dr. Yilan ChangCO2 [Moles/Vol]27.7 mmol/HJjjlck16.0-32.0The [facility] HospitalComment on above:Performed By: #### BNP, BMP ####[facility] Rdwynvexud[address] [place], [place] [address]Dr. Yilan ChangCreatinine [Mass/Vol]1.80 mg/dL Critically high0.55-1.02The [facility] HospitalComment on above:Performed By: #### BNP, BMP ####[facility] Cfywsrymdy[address] [place], [place] [address]Dr. Yilan ChangEGFR-AF HUPECWAC75 mL/min/1.22t5Pgpbgggwjf low>=60The [facility] HospitalComment on above:Performed By: #### BNP, BMP ####[facility] Yiyuresogo[address] [place], [place] [address]Dr. Yilan ChangEGFR- NON AF RCVROPCF70 mL/min/1.22q3Ujnxwinjwi low>=60The [facility] HospitalComment on above:Performed By: #### BNP, BMP ####[facility] Tgksgyjryf[address] [place], [place] [address]Dr. Yilan ChangGlucose [Mass/Vol]107 mg/dL Critically wmvi90-953Ebu [facility] HospitalComment on above:Performed By: #### BNP, BMP ####[facility] Dmngatuune[address] [place], [place] [address]Dr. Yilan ChangPotassium [Moles/Vol]3.6 mmol/LNormal3.5-5.1The [facility] HospitalComment on above:Performed By: #### BNP, BMP ####[facility] Ppeshwnlaq[address] [place], [place] [address]Dr. Yilan ChangSodium [Moles/Vol]141 mmol/IDybodx549-348Etz [facility] HospitalComment on above: Performed By: #### BNP, BMP ####[facility] Dfofpygzno[address] [place], [place] [address]Dr. Yilan ChangUrea nitrogen [Mass/Vol]33.0 mg/dL Critically high7.0-18.0The [facility] HospitalComment on above:Performed By: #### BNP, BMP ####[facility] Pdxscpqfco[address] [place], [place] [address]Dr. Yilan ChangUrea nitrogen/Creatinine [Mass ratio]18.3 mg/mgNormalThe [facility] HospitalComment on above:Performed By: #### BNP, BMP ####[facility] Atmfeylwlv[address] [place], [place] [address]Dr. Aryan PettyUS KIDNEYSon 54-15-2992ZT KIDNEYSEXAMINATION: US KIDNEYS HISTORY: Kidney lesion COMPARISON: [...] Electronically authenticated by: HENRY WALL Date: 2022-02-22 17:[address] [place], [place] [address]VC VENOUS REFLUX TEJ LMBanner [facility]rella [facility] [id number] VENOUS REFLUX TEJ LMT Patient: MARLENI DENNIS Exam Date: 02/16/2022 : 1950 Gender:F Ordering : JOHN LUTHER Admission #: [id number] Family : Order #: [id number] CLICK HERE TO VIEW EXAM RADIOLOGY REPORT [...] proximal SSV. Flow: Mild deep venous reflux. [employer] Of [employer]: Dist/med calf 3.3 mm with 0.3s reflux. [...] Normal. Flow: Mild deep venous reflux noted. 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 Dist/med calf 3.1mm, [...] by: Henry Wall MD on 02/16/2022 at 11:49[facility] CAROTID ART BILon [id number] CAROTID ART BILEXAMINATION: US CAROTID ART TEJ [...] Electronically authenticated by: TONYA GARCIA Date: 2022-02-04 17:45[facility] HospitalUS WALTER DOP LEG BILon [id number] WALTER DOP LEG BILEXAM: US WALTER DOP [...] Electronically authenticated by: JERRICA HOLDEN Date: 2022-02-04 16:34[facility] HospitalBNPon 08-65-2150Vodymsezrmm peptide B (Bld) [Mass/Vol]620.0 pg/mLNormal<=900.0The [facility] HospitalComment on above:Performed By: #### BNP, BMP, LIPID ####[facility] [address] [address]Dr. Yilan ChangLIPID PROFILEon 94-84-4927WKHA-HDL RATIO NORMSEE BELOWNormal The [facility] HospitalComment on above:Result Comment: 3.3 - 4.4 LOW RISK 4.4 - 7.1 AVERAGE RISK 7.1 - 11.0 MODERATE RISK >11.0 HIGH RISKPerformed By: #### BNP, BMP, LIPID ####[facility] Jayytzjcdf[address] [place], [place] [address]Dr. Yilan ChangCholesterol [Mass/Vol]148 mg/dLNormal<=200The [facility] HospitalComment on above:Performed By: #### BNP, BMP, LIPID ####[facility] Iqslexabds[address] [place], [place] [address]Dr. Yilan Petty Cholesterol in HDL [Mass/Vol]25 mg/dLCritically zue49-45WqmClermont County Hospital Comment on above:Performed By: #### BNP, BMP, LIPID ####[facility] V[address]khmwkh[address] [place], [place] [address]Dr. Yilan ChangCholesterol in LDL [Mass/Vol]80.8 mg/dLWVUMedicine Barnesville HospitalComment on above:Performed By: #### BNP, BMP, LIPID ####[facility] Wlxlznmpvh[address] [place], [place] [address]Dr. Yilan ChangCholesterol.total/Cholesterol in HDL [Mass ratio]5.9 {ratio}NormalClermont County HospitalComment on above:Performed By: #### BNP, BMP, LIPID ####[facility] Vyhnbsiksa[address] [place], [place] [address]Dr. Yilan ChangHDL NORMAL> or = 60 mg/dl - LOW CARDIOVASCULAR RISK <40 mg/dl - HIGH CARDIOVASCULAR RISKWVUMedicine Barnesville HospitalComment on above:Performed By: #### BNP, BMP, LIPID ####[facility] Ofkuqgkdiz[address] [place], [place] [address]Dr. Yilan ChangLDL CALC NORMALSEE BELOWWVUMedicine Barnesville HospitalComment on above:Result Comment: <100 mg/dl OPTIMAL 100 - 129 mg/dl NEAR OR ABOVE OPTIMAL 130 - 159 mg/dl BORDERLINE HIGH 160 - 189 mg/dl HIGH >190 mg/dl VERY HIGHPerformed By: #### BNP, BMP, LIPID ####[facility] [address] [address]Dr. Yilan ChangTriglyceride [Mass/Vol]211 mg/dLCritically high<=150The [facility] HospitalComment on above:Performed By: #### BNP, BMP, LIPID ####[facility] [address] [address]Dr. Yilan ChangVLDL CALC42.2 mg/dLNormalThe [facility] HospitalComment on above: Performed By: #### BNP, BMP, LIPID ####[facility] [address] [address]Dr. Yilan ChangPROF CHEM 8 (BAS METB)on 47-90-8922Dnphi gap [Moles/Vol]14.7 mmol/LNormalThe [facility] HospitalComment on above:Performed By: #### BNP, BMP, LIPID ####[facility] [address] [address]Dr. Yilan ChangCalcium [Mass/Vol]8.7 mg/dL Normal8.5-10.1The [facility] HospitalComselect specialty hospital-[facility] on above:Performed By: #### BNP, BMP, LIPID ####[facility] [address] [address]Dr. Yilan ChangChloride [Moles/Vol]104 mmol/QAxpvut25-049Ldt [facility] HospitalComment on above:Performed By: #### BNP, BMP, LIPID ####[facility] [address] [address]Dr. Yilan ChangCO2 [Moles/Vol]26.0 mmol/RJhqrnc38.0-32.0The [facility] HospitalComment on above: Performed By: #### BNP, BMP, LIPID ####[facility] [address] [address]Dr. Yilan ChangCreatinine [Mass/Vol]2.91 mg/dL Critically high0.55-1.02The [facility] HospitalComment on above:Performed By: #### BNP, BMP, LIPID ####[facility] [address] [address]Dr. Yilan ChangEGFR-AF SXAGBLIA22 mL/min/1.55h1Gdecgemerg low>=60The [facility] HospitalComment on above:Performed By: #### BNP, BMP, LIPID ####[facility] [address] [address]Dr. Yilan ChangEGFR-NON AF YBJFVEBZ83 mL/min/1.63d1Ofbbbutsma low>=60The [facility] HospitalComment on above:Performed By: #### BNP, BMP, LIPID ####[facility] Zocyeqkpcb[address] [place], [place] [address]Dr. Yilan Petty Glucose [Mass/Vol]110 mg/dLCritically oyla29-904Ijt [facility] HospitalComselect [facility] on above:Performed By: #### BNP, BMP, LIPID ####[facility] Dssewchhiu[address] [place], [place] [address]Dr. Yilan ChangPotassium [Moles/Vol]3.7 mmol/LNormal3.5-5.1The [facility] HospitalComselect specialty hospital-[facility] on above:Performed By: #### BNP, BMP, LIPID ####[facility] Vfvkoevjik[address] [place], [place] [address]Dr. Yilan ChangSodium [Moles/Vol]141 mmol/KTgijcl031-291Aev [facility] on above:Performed By: #### BNP, BMP, LIPID ####[facility] Ltthlpfeva[address] [place], [place] [address]Dr. Yilan ChangUrea nitrogen [Mass/Vol]51.0 mg/dLCritically high7.0-18.0The [facility] HospitalComment on above:Performed By: #### BNP, BMP, LIPID ####[facility] Wiwerczqiy[address] [place], [place] [address]Dr. Yilan ChangUrea nitrogen/Creatinine [Mass ratio]17.5 mg/mgNormalThe [facility] HospitalComment on above:Performed By: #### BNP, BMP, LIPID ####[facility] [address] [place], [place] [address]Qy. Aryan JovannyMidstate Medical Center Metabolic Panel Reflex Mgon 94-14-9927Norqm gap 3 molar conc10 mmol/LNormal7-13[facility] CenterCalcium mass conc8.2 mg/dLLow8.6-10.2MMelissa Memorial HospitalChloride molar ncgo004 mmol/LCritically xjea07-965DspibHeart Of [facility] Medical CenterCO2 molar conc25 mmol/FHgjltc18-73WtipnHeart Of The [facility] Regional Medical CenterCreatinine mass conc1.21 mg/dLCritically high0.50-0.90[facility] CenterGFR/1.73 sq M predicted among blacks MDRD vol rate/area (S/P/Bld)53.4 mL/min/{1.73_m2}Low>60 [facility] CenterComment on above:Result Comment: >60 mL/min/1.73m2 EGFR, calc. for ages 18 and older using theMDRD formula (not corrected for weight), is valid for stablerenal function.GFR/1.73 sq M.predicted MDRD vol rate/area44.2 mL/min/{1.73_m2}Low>60[facility] CenterComment on above:Result Comment: >60 mL/min/1.73m2 EGFR, calc. for ages 18 and older using theMDRD formula (not corrected for weight), is valid for stablerenal function. Glucose mass qbrr672 mg/dLCritically txsi81-961QykjfHeart Of The Rockies Regional Medical Center Potassium reflex Mg3.6 mEq/LNormal3.5-5.1MPoudre Valley Hospitalodium molar fluy838 mmol/UZkvtma393-314FndibHeart Of [facility] Medical CenterUrea nitrogen mass conc26 mg/dLCritically high8-23[facility] CenterCBC With Platelet and Differentialon 88-87-4535Wwijzigor Auto #/vol (Bld)0.1 10*3/uLNormal0.0-0.2 [facility] CenterBasophils/100 WBC Auto (Bld)0.7 %[facility] HospitalEosinophils Auto #/vol (Bld)0.3 10*3/uLNormal0.0-0.7[facility] CenterEosinophils/100 WBC Auto (Bld)3.1 %[facility] HospitalErythrocyte distribution width Auto Ratio (RBC)13.4 %Normal 11.5-14.5[facility] CenterHematocrit Auto Volume Fraction (Bld)34.6 %Low37.0-47.0[facility] CenterHemoglobin mass conc (Bld)12.0 g/dL Lzesqa44.0-16.0[facility] CenterLymphocytes Auto #/vol (Bld)2.3 10*3/uLNormal1.0-4.8[facility] CenterLymphocytes/100 WBC Auto (Bld) 24.2 %[facility] [place]H Auto Entitic mass (RBC)33.0 pg Critically high27.0-31.3MUCHealth Highlands Ranch HospitalHC Auto mass conc (RBC) 34.6 %Ythlpp27.0-37.0[facility] CenterMCV Auto Entitic volume (RBC) 95.4 eYFqayie59.0-100.0[facility] CenterMonocytes Auto #/vol (Bld) 0.9 10*3/uLCritically high0.2-0.8[facility] CenterMonocytes/100 WBC Auto (Bld)9.8 %[facility] HospitalNeutrophils Auto #/vol (Bld) 5.9 10*3/uLNormal1.4-6.5[facility] CenterNeutrophils/100 WBC Auto (Bld)62.2 %[facility] HospitalPlatelets Auto #/vol (Bld)139 10*3/pOGzbkfp228-807WdvnrHeart Of [facility] Regional Medical CenterRBC Auto #/vol (Bld)3.62 10*6/uLLow4.20-5.40[facility] CenterWBC Auto #/vol (Bld)9.5 10*3/uL Normal4.8-10.8[facility] CenterBasic Metabolic Panelon 06-06-2018 Anion gap 3 molar conc11 mmol/LNormal7-13[facility] CenterCalcium mass conc8.3 mg/dLLow8.6-10.2MMelissa Memorial HospitalChloride molar bjmd063 mmol/DIkgild90-795LpyphHeart Of [facility] Medical CenterCO2 molar conc26 mmol/LNormal 22-29[facility] CenterCreatinine mass conc1.90 mg/dLCritically high 0.50-0.90[facility] CenterGFR/1.73 sq M predicted among blacks MDRD vol rate/area (S/P/Bld)31.8 mL/min/{1.73_m2}Low>60[facility] Comment on above:Result Comment: >60 mL/min/1.73m2 EGFR, calc. for ages 18 and older using theMDRD formula (not corrected for weight), is valid for stablerenal function.GFR/1.73 sq M.predicted MDRD vol rate/area26.2 mL/min/{1.73_m2}Low>60 [facility] CenterComment on above:Result Comment: >60 mL/min/1.73m2 EGFR, calc. for ages 18 and older using theMDRD formula (not corrected for weight), is valid for stablerenal function.Glucose mass czap073 mg/dLCritically awba27-013FdgsdHeart Of The Rockies Regional Medical CenterPotassium molar conc4.1 mmol/LNormal 3.5-5.1MPoudre Valley Hospitalodium molar prge481 mmol/WSlqwpe415-819 [facility] CenterUrea nitrogen mass conc25 mg/dLCritically high8-23 [facility] CenterCBC With Platelet and Differentialon 06-06-2018 Basophils Auto #/vol (Bld)0.0 10*3/uLNormal0.0-0.2MMelissa Memorial Hospital Basophils/100 WBC Auto (Bld)0.1 %NormalHeart Of The Rockies Regional Medical CenterEosinophils Auto #/vol (Bld)0.0 10*3/uLNormal0.0-0.7[facility] Eosinophils/100 WBC Auto (Bld)0.0 %[facility] Erythrocyte distribution width Auto Ratio (RBC)13.5 %Mddrrr23.5-14.5[facility] Medical CenterHematocrit Auto Volume Fraction (Bld)35.0 %Low37.0-47.0 [facility] CenterHemoglobin mass conc (Bld)12.0 g/yJJblnul89.0-16.0 [facility] CenterLymphocytes Auto #/vol (Bld)1.0 10*3/uLNormal 1.0-4.8[facility] CenterLymphocytes/100 WBC Auto (Bld)8.2 %Normal [facility] [place] HospitalH Auto Entitic mass (RBC)32.8 pgCritically high 27.0-31.3MUCHealth Highlands Ranch HospitalHC Auto mass conc (RBC)34.4 %Normal 33.0-37.0[facility] CenterMCV Auto Entitic volume (RBC)95.3 fLNormal 82.0-100.0[facility] CenterMonocytes Auto #/vol (Bld)1.0 10*3/uL Critically high0.2-0.8[facility] CenterMonocytes/100 WBC Auto (Bld) 8.0 %[facility] HospitalNeutrophils Auto #/vol (Bld)10.1 10*3/uL Critically high1.4-6.5[facility] CenterNeutrophils/100 WBC Auto (Bld)83.7 %[facility] HospitalPlatelets Auto #/vol (Bld)146 10*3/uFYznryk305-188IuolgHeart Of The Rockies Regional Medical CenterRBC Auto #/vol (Bld)3.67 10*6/uLLow4.20-5.40[facility] CenterWBC Auto #/vol (Bld)12.1 10*3/uL Critically high4.8-10.8[facility] CenterXR CHEST (2 VW)on 06-06-2018 XR CHEST (2 [...] Interpreted b y:ANDRA Dominguezigned by:Joss Casas MD06/06/18Final resultNormalHeart Of [facility] Medical CenterBasic Metabolic Panel Reflex Mgon 01-49-8966Qqdkx gap 3 molar conc11 mmol/LNormal7-13[facility] CenterCalcium mass conc8.9 mg/dLNormal8.6-10.2MMelissa Memorial HospitalChloride molar ineo479 mmol/L Svenwz72-242YsrzfHeart Of The Rockies Regional Medical CenterCO2 molar conc25 mmol/LNvoprs18-36RoxqqHeart Of [facility] Medical CenterCreatinine mass conc0.86 mg/dLNormal0.50-0.90[facility] CenterGFR/1.73 sq M predicted among blacks MDRD vol rate/area (S/P/Bld)mL/min/{1.73_m2}Normal>60[facility] CenterComment on above: Result Comment: >60 mL/min/1.73m2 EGFR, calc. for ages 18 and older using theMDRD formula (not corrected for weight), is valid for stablerenal function. GFR/1.73 sq M.predicted MDRD vol rate/areamL/min/{1.73_m2}Normal>60[facility] CenterComment on above:Result Comment: >60 mL/min/1.73m2 EGFR, calc. for ages 18 and older using theMDRD formula (not corrected for weight), is valid for stablerenal function.Glucose mass svqz747 mg/dLCritically jojp16-066 [facility] CenterPotassium reflex Mg4.0 mEq/LNormal3.5-5.1MPoudre Valley Hospitalodium molar cfck799 mmol/BEiqmgn331-728BceltHeart Of [facility] Medical CenterUrea nitrogen mass conc13 mg/dLNormal8-23[facility] CenterCBC With Platelet and Differentialon 59-21-8628LBI morphology finding Nom (Bld)NormalNormSterling Regional MedCenterPlatelet Slide ReviewNormalNormal [facility] CenterBasophils Auto #/vol (Bld)0.1 10*3/uLNormal0.0-0.2 [facility] CenterBasophils/100 WBC Auto (Bld)1.0 %NormalHeart Of The Rockies Regional Medical CenterEosinophils Auto #/vol (Bld)0.0 10*3/uLNormal0.0-0.7[facility] CenterEosinophils/100 WBC Auto (Bld)0.4 %NormalHeart Of The Rockies Regional Medical CenterErythrocyte distribution width Auto Ratio (RBC)13.5 %Normal 11.5-14.5[facility] CenterHematocrit Auto Volume Fraction (Bld)40.5 %Susbdz87.0-47.0[facility] CenterHemoglobin mass conc (Bld)13.7 g/dL Idvvun50.0-16.0[facility] CenterLymphocytes Auto #/vol (Bld)2.0 10*3/uLNormal1.0-4.8[facility] CenterLymphocytes/100 WBC Auto (Bld) 15.5 %NormalUniversity of [place] HospitalH Auto Entitic mass (RBC)32.4 pg Critically high27.0-31.3[facility] HealthHC Auto mass conc (RBC) 33.9 %Pkxjhk20.0-37.0[facility] CenterMCV Auto Entitic volume (RBC) 95.6 kHGmoozl72.0-100.0[facility] CenterMonocytes Auto #/vol (Bld) 1.3 10*3/uLCritically high0.2-0.8[facility] CenterMonocytes/100 WBC Auto (Bld)10.1 %[facility] HospitalNeutrophils Auto #/vol (Bld) 9.4 10*3/uLCritically high1.4-6.5[facility] CenterNeutrophils/100 WBC Auto (Bld)73.0 %[facility] HospitalPlatelets Auto #/vol (Bld)168 10*3/eWUmignn190-235LaimjHeart Of The Rockies Regional Medical CenterRBC Auto #/vol (Bld) 4.24 10*6/uLNormal4.20-5.40[facility] CenterWBC Auto #/vol (Bld)12.9 10*3/uLCritically high4.8-10.8[facility] CenterPOCT Glucoseon 48-49-0719Otwdxrf mass gptr767 mg/dLCritically zaqo25-330QmnajHeart Of The [facility] Regional Medical CenterXR LUMBAR SPINE (2-3 VIEWS)on 69-45-9429MN LUMBAR SPINE (2-3 VIEWS) EXAMINATION: XR LUMBAR [...] L4-5 AND L5-S1.Interpreted by:ANDRA Sotoigned by:Tanvir Power MD06/05/inal resultNormal [facility] CenterBasic Metabolic Panel Reflex Mgon 11-89-8527Xlpwy gap 3 molar conc13 mmol/LNormal7-13[facility] CenterCalcium mass conc9.1 mg/dLNormal8.6-10.2MMelissa Memorial HospitalChloride molar ujoo043 mmol/IYusbhx19-586YpgomHeart Of The Rock[facility] Regional Medical CenterCO2 molar conc23 mmol/LNormal 22-29[facility] CenterCreatinine mass conc1.08 mg/dLCritically high 0.50-0.90[facility] CenterGFR/1.73 sq M predicted among blacks MDRD vol rate/area (S/P/Bld)mL/min/{1.73_m2}Normal>60[facility] Comment on above:Result Comment: >60 mL/min/1.73m2 EGFR, calc. for ages 18 and older using theMDRD formula (not corrected for weight), is valid for stablerenal function.GFR/1.73 sq M.predicted MDRD vol rate/area50.4 mL/min/{1.73_m2}Low>60 [facility] CenterComment on above:Result Comment: >60 mL/min/1.73m2 EGFR, calc. for ages 18 and older using theMDRD formula (not corrected for weight), is valid for stablerenal function.Glucose mass bhyj103 mg/dLCritically zgne88-821DtnjmHeart Of The Rockies Regional Medical CenterPotassium reflex Mg4.3 mEq/LNormal3.5-5.1 [facility] Hospitalodium molar gunq304 mmol/OOsbhff998-399BzqsdHeart Of The Rockies Regional Medical CenterUrea nitrogen mass conc21 mg/dLNormal8-23[facility] CenterCBC With Platelet No Differentialon 47-13-2517Nkfwamporos distribution width Auto Ratio (RBC)13.4 %Iyfbys42.5-14.5[facility] CenterHematocrit Auto Volume Fraction (Bld)44.5 %Ctmcwl42.0-47.0[facility] CenterHemoglobin mass conc (Bld)15.2 g/cCGewbpm14.0-16.0[facility] HospitalH Auto Entitic mass (RBC)32.6 pgCritically high27.0-31.3MUCHealth Highlands Ranch HospitalHC Auto mass conc (RBC)34.3 %Kdcooi03.0-37.0[facility] CenterMCV Auto Entitic volume (RBC)95.1 uXSjdzmy98.0-100.0[facility] CenterPlatelets Auto #/vol (Bld)163 10*3/dGKmvsca667-908KwqulHeart Of The Rockies Regional Medical CenterRBC Auto #/vol (Bld)4.68 10*6/uLNormal4.20-5.40[facility] CenterWBC Auto #/vol (Bld)8.3 10*3/uLNormal4.8-10.8[facility] CenterFLUORO FOR SURGICAL PROCEDURESon 49-82-4251OBKFPT FOR SURGICAL PROCEDURESEXAMINATION: Intraoperative lumbar fusion.CLINICAL HISTORY: [...] the soft tissue anterior to the spinal column.[place] bone intact.Please see procedural note for more detailed.IMPRESSION: INTRAOPERATIVE PLIF L3- L5.Interpreted by:ANDRA Dominguezigned by:Joss Casas MD06/04/inal resultNormalHeart Of The Rockies Regional Medical CenterPOCT Glucoseon 48-71-0354Juuowew mass zahj047 mg/qEIuukmk06-145BzvdgHeart Of The Rockies Regional Medical CenterPOC Performed onACCU-CHEK NormalAspen Valley Hospitalurgical Specimenon 38-88-4460Kpxgskgo SpecimenInvalid Interpretation [facility] CenterComment on above:Result Comment: [facility] [address] [id number] [phone] SURGICAL PATHOLOGY REPORTPatient Name: MARLENI DENNIS Accession No: [id number] Age Sex: 1950 Location: [place] [id number] No: [id number] Collected: 06/04/2018Med Rec No: [id number] Received: 06/05/2018Attend Phys: SHAKA DESIRAE Completed: 06/07/2018Perform [...] two cassettes after a brief decalcification. ALDWA/SCDANCPT: [phone] Z3KJIAROGIULIA ENGEL M.D. 06/07/2018 Electronically signed out by Page 1 of 1Basic Metabolic Panelon 42-29-8292Beiwt gap 3 molar conc14 mmol/LCritically high7-13 [facility] CenterCalcium mass conc9.7 mg/dLNormal8.6-10.2MMelissa Memorial HospitalChloride molar yzvc850 mmol/DChdaxv15-209DnrspHeart Of The Rock[facility] Medical CenterCO2 molar conc25 mmol/PQxrwrt39-31VxivuHeart Of The [facility]ies [facility] Center Creatinine mass conc1.15 mg/dLCritically high0.50-0.90[facility] CenterGFR/1.73 sq M predicted among blacks MDRD vol rate/area (S/P/Bld)56.7 mL/min/{1.73_m2}Low>60[facility] CenterComment on above:Result Comment: >60 mL/min/1.73m2 EGFR, calc. for ages 18 and older using theMDRD formula (not corrected for weight), is valid for stablerenal function.GFR/1.73 sq M.predicted MDRD vol rate/area46.8 mL/min/{1.73_m2}Low>60[facility] CenterComment on above:Result Comment: >60 mL/min/1.73m2 EGFR, calc. for ages 18 and older using theMDRD formula (not corrected for weight), is valid for stablerenal function.Glucose mass etsw034 mg/eDOtpjrg32-831NiwmaHeart Of The Rockies Regional Medical CenterPotassium molar conc3.6 mmol/LNormal3.5-5.1MPoudre Valley Hospitalodium molar ipwh446 mmol/WUxjvet506-608NlydzHeart Of The Rockies Regional Medical CenterUrea nitrogen mass conc21 mg/dLNormal8-23[facility] CenterCBC With Platelet No Differentialon 55-52-5500Uqkbgpfrwdg distribution width Auto Ratio (RBC)13.5 %Sltwsc20.5-14.5[facility] CenterHematocrit Auto Volume Fraction (Bld)44.4 %Irecpo47.0-47.0[facility] CenterHemoglobin mass conc (Bld)15.5 g/fJAqpkxu25.0-16.0[facility] HospitalH Auto Entitic mass (RBC)33.0 pgCritically high27.0-31.3MUCHealth Highlands Ranch HospitalHC Auto mass conc (RBC)34.9 %Zlvojg93.0-37.0[facility] CenterMCV Auto Entitic volume (RBC)94.4 jXLabsck41.0-100.0[facility] Platelets Auto #/vol (Bld)199 10*3/uWCixyyu528-281HqxsnHeart Of The [facility] Center RBC Auto #/vol (Bld)4.71 10*6/uLNormal4.20-5.40[facility] CenterWBC Auto #/vol (Bld)7.0 10*3/uLNormal4.8-10.8[facility] CenterCulture, MRSA Screenon 83-16-3355Bpthnyi, MRSA ScreenORDER#: [id number] ORDERED BY: CLIFTON STONE: Nares Nasal COLLECTED: 05/23/18 11:37ANTIBIOTICS AT SERGIO.: RECEIVED : 05/23/18 11:37Culture, MRSA Screen FINAL 05/24/18 12:57 No MRSA isolatedValley View HospitalCulture, Urineon 05-23-2018 Culture, UrineORDER#: [id number] ORDERED BY: CLIFTON STONE: Urine Clean Catch COLLECTED: 05/23/18 12:44ANTIBIOTICS AT SERGIO.: RECEIVED : 05/23/18 12:44Culture, Urine FINAL 05/25/18 10:55 No growth 24 hoursNoMelissa Memorial HospitalProthrombin Timeon 49-56-8656YXG Coag RelTime (PPP)1.1 {INR}Normal [facility] CenterComment on above:Result Comment: Recommended INR therapeutic ranges for oral anticoagulanttherapyProphylaxis/treatment of: INR Venous Thrombosis, Pulmonary Embolism 2.0-3Prevention of Systemic Embolism from: Atrial Fibrillation 2.0-3.0 Myocardial Infarction 2.0-3.0 Mechanical Prosthetics Heart Valves 2.5-3.5 Recurrent Systemic Embolism 2.5-3.5Guidelines for patients with coagulopathy, e.g. liver disease:Use the Protime resulted in seconds. Mild 12.9-17.0 sec Moderate 17.1-22.6 sec Severe G.T. 22.6 secProthrombin time (PT) Coag time (PPP)11.0 sNormal9.6-12.3MMelissa Memorial HospitalType and Screen Capture 3 scrn cellon 62-24-4486Hhmbyynpr mass concPATIENT: WENDY ANDRADE LOC: DAYSIRUTH# : [id number] : 1950 SEX: FORDERED BY: CHASE Lua ORDERED : 05/23/2018 09:33 COLLECTED: 05/23/2018 11:41ORDER : [id number] RECEIVED : 05/23/2018 11:41 ---TEST NAME RESULT UNITS RANGES ABN FL STABORH Capture AB POS FAntibody 3 Cell Scrn Captu NEG F---- Normal [facility] CenterUrinalysis, reflex to cultureon 17-91-5322Hkzji Reflexed to CultureYESNormSterling Regional MedCenterBilirubin Ql (U) NegativeNormalNegativeHeart Of [facility] CenterClarity Nom (U)ClearNormal ClearHeart Of The [facility] Medical CenterColor Nom (U)YellowNormalStraw/YellHeart Of The [facility] Medical CenterGlucose Ql (U)NegativeNormalNegHealthSouth Rehabilitation Hospital of Colorado SpringsHemoglobin Test strip Ql (U)NegativeNormalNegativeHeart [facility] CenterKetones Ql (U)TRACEAbnormalNegHealthSouth Rehabilitation Hospital of [facility] Springs Leukocyte esterase Test strip Ql (U)TRACEAbnormalNegHealthSouth Rehabilitation Hospital of Colorado SpringsNitrite Test strip Ql (U)NegativermalNegHealthSouth Rehabilitation Hospital of Colorado SpringspH Test strip (U)6.0 [pH]Normal5.0-9.0[facility] CenterProtein Test strip Ql (U)TRACEAbrmalNegSCL Health Community Hospital - Southwestpecific gravity Relative Density (U)1.769Ntjbos6.005-1.03[facility] Urobilinogen Test strip Qn (U)0.2 {Dago'U}/dLNormal< 2.0[facility] Medical CenterUrine Microscopicon 26-21-7883Zgyje LM.LPF #/area (Urine sed)0-1 HyalineNormalHeart Of The Rockies Regional Medical CenterRBC Test strip #/vol (U)3-6Sxaabf5-4 [facility] CenterUrine Amorphous1+NormalHeart Of The Rockies Regional Medical CenterWBC #/vol (U)2-5Ikdpog0-6Vvecz[address] [place], [place] [address]XR SPINE ENTIRE (2-3 VIEWS)on 23-52-8843YW SPINE ENTIRE (2-3 VIEWS)PREOP NO DICTATION Interpreted by: Barb Wetzel MD Signed by: Barb Wetzel MD 06/08/18 Final resultNoMelissa Memorial Hospital Vital Signs Date TimeVital SignValuePerforming YdfeabkllYoapmkcp55-41-5653 13:28-0400Body zudwcuzgjby07.5 [degF]Ana Rosamally Gonzalez DIESEL MACHINIST Work Phone: [phone] [place], [place] [address]Yjjmnqlbmd45-99-7064 13:28-0400Diastolic blood nyvwfgxa83 mm[Hg]Ana Rosa Hardy DIESEL MACHINIST Work Phone: [phone] [address]-10-2025 13:28-0400Heart rate66 /min 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 DIESEL MACHINIST Work Phone: [phone] [place], [place] [address]Oolxspcflk10-19-3914 13:28-4592LsJ1% (BldA) [Mass fraction]98 %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 DIESEL MACHINIST Work Phone: [phone] HealthcareUfhnhlrmvt15-13-1074 13:28-0400Systolic blood mm[Hg]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 DIESEL MACHINIST Work Phone: [phone] HealthcareMsbsjtbzmn95-20-1307 11:14-0400Body idghat684.5 cmJack Vogt MD Work Phone: [facility] HealthcareQbvxifytec65-11-1545 11:14-0400Body mass index (BMI) [Ratio]23.59 kg/p6GqkfwhJack Vogt MD Work Phone: [phone] [place], [place] [address]Yyczyfrqkv30-16-9850 11:14-0400Body nqsdan39.51 kgJack Vogt MD Work Phone: [phone] HealthcareChysztbnbz31-43-4040 11:14-0400Diastolic blood vdtsxoef07 mm[Hg]Jack Vogt MD Work Phone: [facility] HealthcareWnhocnawdq12-87-6061 11:14-0400Heart rate57 /min Jack Vogt MD Work Phone: [facility] HealthcareCzboqsxgir35-05-0063 11:14-6659VeE1% (BldA) [Mass fraction]98 %Jack Vogt MD Work Phone: [phone] [place], [place] 9975209-22-2025 11:14-0400Systolic blood wiinnobj862 mm[Hg]Jack Vogt MD Work Phone: [phone] [place], [place] 9975207-25-2025 12:14-0400Body wdmdghissil57 [degF]Jack Vogt II Work Phone: [phone])[address] [place], [place] 5025707-25-2025 12:14-0400 Diastolic blood dqducadm89 mm[Hg]Jack Vogt II Work Phone: 1(332)[address] [place], [place] 5025707-25-2025 12:14-0400 Heart rate66 /Cora Vogt II Work Phone: [phone] [place], [place] 5025707-25-2025 12:14-0400 Respiratory rate18 /Cora Vogt II Work Phone: [phone])[address] [place], [place] 5025707-25-2025 12:14-0400 SaO2% (BldA) [Mass fraction]90 %Jack Vogt II Work Phone: [phone] [place], [place] 5025707-25-2025 12:14-0400 Systolic blood wmysbpbj975 mm[Hg]Jack Vogt II Work Phone: [phone] [place], [place] 5025707-25-2025 04:55-0400 Body lxwqdo20.4 kgDabambi Vogt II Work Phone: [phone])[address] [place], [place] 5025707-24-2025 07:28-0400 Inhaled oxygen flow rate3 L/Cora Vogt II Work Phone: 1(785)[address] [place], [place] 5025707-23-2025 02:12-0400 Body romdog518.94 cmDabambi Vogt II Work Phone: [phone])[address] [place], [place] 5025707-23-2025 01:25-0400 SaO2% (BldA) [Mass fraction]96 %Jack Vogt II Work Phone: [phone])[address] [place], [place] 5025707-23-2025 01:09-0400 Diastolic blood trpofqjk39 mm[Hg]Jack Vogt II Work Phone: [facility]07-23-2025 01:09-0400 Heart rate71 /minDadonisel Vogt II Work Phone: 1(685)714-[address] [place], [place] 8407507-23-2025 01:09-0400 Inhaled oxygen flow rate2 L/Leandroel Vogt II Work Phone: 1(832)401-[address] [place], [place] 8407507-23-2025 01:09-0400 Respiratory rate18 /minDadonisel Vogt II Work Phone: 1(781)960-[address] [place], [place] 8407507-23-2025 01:09-0400 Systolic blood irmvolnl890 mm[Hg]Jack Vogt II Work Phone: 1(996)284-[address] [place], [place] 8407507-22-2025 18:56-0400 Body qgsywdmjmhn96.5 [degF]Jack Vogt II Work Phone: 1(952)274-[address] [place], [place] 8407507-22-2025 17:59-0400 Body mtovff023.94 cmDasherleyel Vogt II Work Phone: [phone])688-[address] [place], [place] 8407507-22-2025 17:59-0400 Body lkkefy70.77 kgDasherleyel Vogt II Work Phone: 1(553)528-[address] [place], [place] 8407507-22-2025 16:22-0400 Diastolic blood ofbkqell54 mm[Hg]Jack Vogt II Work Phone: [phone])734-[address] [place], [place] 8407507-22-2025 16:22-0400 Systolic blood ajfhekkd650 mm[Hg]Jack Vogt II Work Phone: [phone] [place], [place] 8407507-22-2025 16:02-0400 Body nussrr068.94 cmDasherleyel Vogt II Work Phone: [phone] [place], [place] 8407507-22-2025 16:02-0400 Body mass index (BMI) [Ratio]27.3 kg/i5Wiaghk Vogt II Work Phone: [phone])255-[address] [place], [place] 8407507-22-2025 16:02-0400 Body zzejzw66.77 kgDaniel Vogt II Work Phone: [facility]07-22-2025 16:02-0400 Heart rate63 /Cora Vogt II Work Phone: [facility]07-22-2025 16:02-0400 Respiratory rate16 /Cora Vogt II Work Phone: [facility]07-22-2025 16:02-0400 SaO2% (BldA) [Mass fraction]99 %Jack Vogt II Work Phone: [facility]07-16-2025 14:31-0400 Body cdldmvggafk69.5 [degF]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 DIESEL MACHINIST Work Phone: [facility] HealthcareGwgjvbacya52-39-5917 14:31-0400Heart rate58 /min 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 DIESEL MACHINIST Work Phone: [facility] HealthcareDsrfcwcims06-37-4002 14:31-8327BzL4% (BldA) [Mass fraction]98 %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 DIESEL MACHINIST Work Phone: [facility] HealthcareYqbtcmduwm39-50-5531 16:44-0400Body osttnv861.5 cmJack Vogt MD Work Phone: [facility] HealthcareCoauxiermx42-08-4072 16:44-0400Body mass index (BMI) [Ratio]26.34 kg/h3GzyxjqJack Vogt MD Work Phone: [facility] HealthcareSkmohnajgu00-92-8155 16:44-0400Body ewhdsk65.32 kgJack Vogt MD Work Phone: [facility] HealthcareKmwmxojoyw00-21-1482 16:44-0400Diastolic blood fxytcner96 mm[Hg]Jack Vogt MD Work Phone: [facility] John'sHbxdsyirmf53-05-8746 16:44-0400Heart rate76 /min Jack Vogt MD Work Phone: [facility] HealthcareKnqgyqkxwy34-60-8337 16:44-4287ToC9% (BldA) [Mass fraction]99 %Jack Vogt MD Work Phone: [facility] HealthcareLmaeuvezrb02-32-4233 16:44-0400Systolic blood yblgodps035 mm[Hg]Jack Vogt MD Work Phone: [facility] HealthcareSpyixefpze66-04-8723 11:40-0400Body hyfpgz042.5 cmSoxana Moncada DIESEL MACHINIST Work Phone: [facility] HealthcareEemaldpnou69-20-4197 11:40-0400Body mass index (BMI) [Ratio]26.89 kg/m2ZyzpkyRenetta Moncada DIESEL MACHINIST Work Phone: [phone] HealthcareWszcifeime59-55-1510 11:40-0400Body iuepwv35.68 kgRenetta Moncada DIESEL MACHINIST Work Phone: [phone])[facility] [place], [place] [address]Jlmgleyxgx28-24-5480 11:40-0400Diastolic blood uwdsmgvy60 mm[Hg]Renetta Moncada DIESEL MACHINIST Work Phone: [facility] HealthcareHxygeyoyib39-38-2628 11:40-0400Heart rate74 /min Renetta Moncada DIESEL MACHINIST Work Phone: [phone] [place], [place] [address]Pnqpmnsulu35-47-7552 11:40-0400Respiratory rate16 /minSoxana Moncada DIESEL MACHINIST Work Phone: [phone])[phone] [place], [place] [address]Sjxbfatotn72-86-1368 11:40-6483HaZ0% (BldA) [Mass fraction]97 %Renetta Moncada DIESEL MACHINIST Work Phone: [facility] HealthcarePzkkoizvhq91-67-4539 11:40-0400Systolic blood krejfvdr514 mm[Hg]Renetta Moncada DIESEL MACHINIST Work Phone: 1([phone] [place], [place] [address]Cegnxqzuir99-09-1913 09:40-0400Body ntffby596.8 cmJack Vogt MD Work Phone: [phone] [place], [place] [address]Eqgplrougk89-76-4188 09:40-0400Body mass index (BMI) [Ratio]28.08 kg/x2ZxxxvoJack Vogt MD Work Phone: [phone] HealthcareLxchlbmhsl30-45-2208 09:40-0400Body .76 kgJack Vogt MD Work Phone: [phone] [facility] [address] John'sVwxdqtuimz75-63-4037 09:40-0400Diastolic blood sggpikeu50 mm[Hg]Jack Vogt MD Work Phone: [facility] John'sNuvqoglity61-98-1471 09:40-0400Heart rate62 /min Jack Vogt MD Work Phone: [facility] John'sOnsxyhmbby48-25-2534 09:40-3512WzM0% (BldA) [Mass fraction]96 %Jack Vogt MD Work Phone: [facility] John'sBcsdqbiqky24-22-7966 09:40-0400Systolic blood topegthv205 mm[Hg]Jack Vogt MD Work Phone: [facility] John'sTzqfadabuh08-04-0459 11:41-0400Body xwsynm373.8 cmDabambi Vogt MD Work Phone: [phone] [facility] St[address] John'sHfmehpsblf68-22-6597 11:41-0400Body mass index (BMI) [Ratio]28.44 kg/e3ApwthoJack Vogt MD Work Phone: [phone] Hospital St. John'sIciwtzddhi42-02-8796 11:41-0400Body .67 kgJack Vogt MD Work Phone: [facility] John'sMrkciorxei82-43-8912 11:41-0400Diastolic blood weqinnkc99 mm[Hg]Jack Vogt MD Work Phone: [facility] John'sAslsywexmg74-89-0429 11:41-0400Heart rate65 /min Jack Vogt MD Work Phone: [facility] John'sHlqjrgrjus64-39-4860 11:41-1298FmU5% (BldA) [Mass fraction]96 %Jack Vogt MD Work Phone: [facility] John'sCsfzakpuur60-16-7784 11:41-0400Systolic blood gpqbzogr305 mm[Hg]Jack Vogt MD Work Phone: [facility] John'sZonnninhyr26-77-3599 13:19-0500Blood Pressure Elsi CARDENAS [facility]03-03-2025 13:19-0500Body oruksrqgigr26.6 [degF]Alfredo CARDENAS [facility]03-03-2025 13:19-0500Diastolic blood izttcebh62 mm[Hg]Alfredo CARDENAS [facility]03-03-2025 13:19-0500Heart rate70 /minPatrick CARDENAS [facility]03-03-2025 13:19-0500Respiratory rate16 /minPatrick CARDENAS [facility]03-03-2025 13:19-0500Systolic blood uzdvofnm592 mm[Hg]Alfredo CARDENAS [facility]03-07-2024 14:31-0500Body kinsia761.02 cmII Jack Vogt Work Phone: [facility]03-07-2024 14:31-0500 Body mass index (BMI) [Ratio]31 kg/m2II Jack Vogt Work Phone: [facility]03-07-2024 14:31-0500 Body hhoybd16.46 kgII Jack Vogt Work Phone: [facility]02-05-2024 12:31-0500 Blood Pressure LocationPatrick CARDENAS [facility]02-05-2024 12:31-0500Diastolic blood bqtjgsib32 mm[Hg]Alfredo CARDENAS [facility]02-05-2024 12:31-0500Heart rate62 /minPatrick CARDENAS [facility]02-05-2024 12:31-0500Respiratory rate16 /minPatrick CARDENAS [facility]02-05-2024 12:31-0500Systolic blood rdvqwlyw731 mm[Hg]Alfredo CARDENAS [facility]01-09-2023 12:59-0500Blood Pressure LocationPatrick CARDENAS [facility]01-09-2023 12:59-0500Diastolic blood pyhgeome02 mm[Hg]Alfredo CARDENAS [facility]01-09-2023 12:59-0500Heart rate78 /minPatrick CARDENAS [facility]01-09-2023 12:59-0500Respiratory rate16 /minPatrick CARDENAS [facility]01-09-2023 12:59-0500Systolic blood ovtyzbky113 mm[Hg]Alfredo CARDENAS [facility]06-17-2022 10:16-0400Blood Pressure LocationPatrick CARDENAS [facility] 06-17-2022 10:16-0400Diastolic blood hrnunwud09 mm[Hg] Alfredocodi CARDENAS [facility] 06-17-2022 10:16-0400Heart rate56 /minPatrick CARDENAS [facility] 06-17-2022 10:16-0400Respiratory rate16 /minPatrick ColonaryConcepts [facility] 06-17-2022 10:16-0400Systolic blood zpqzswde430 mm[Hg] Alfredo CARDENAS [facility] Encounters Encounter DateEncounter TypeCare ProviderFacilityStart: 11-04-3240reokydfsfw Alfredo CARDENASFacility:DARREL BellevueStart: 07-09-2025 End: 80-24-8198Gvxkmohvn Result EncounterGeneric External Data ProviderNOMS External Department UnsolicitedStart: 07-09-2025 End: 52-59-9511Corsutkij Result EncounterGeneric External Data ProviderNOMS External Department UnsolicitedStart: 06-27-2025 End: 95-77-6064Tcuosujrx encounterDejose Gonzalez NP Work Phone: noms [facility] ACOStart: 06-27-2025 End: 35-70-3611Sldd visit est pt mod-hi severity 40 minutesDejose Gonzalez DIESEL MACHINIST Work Phone: noms [facility] ACOComment on above:Chronic kidney disease, stage 4 (severe) (HCC) (Primary Dx); Chronic diastolic congestive heart failure (HCC); Atherosclerosis of [place] coronary artery of [place] heart with stable angina pectoris; Benign essential hypertension; Degenerative lumbar spinal stenosis; Radiculopathy of lumbar region; Spinal stenosis, lumbar region with neurogenic claudication; Spondylolisthesis of lumbar region; Need for home health care; Routine lab draw; Advanced care planning/counseling discussionStart: 06-27-2025 End: 91-54-5743Wdrptfa encounter status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 DIESEL MACHINIST Work Phone: noms HealthcareStart: 06-09-2025 End: 76-31-6759Gzrhfe Berenice Vogt MD Work Phone: noms [facility] MedinceStart: 06-09-2025 End: 13-42-9834Stbtejshruthi Vogt MD Work Phone: noms [facility] MedinceStart: 06-09-2025 End: 94-24-9351Abojzvfax Result EncounterJack Vogt MD Work Phone: noms External Department UnsolicitedStart: 06-09-2025 End: 86-96-2200Ysmwnj outpatient visit 40 minutesJack Vogt MD Work Phone: noms [facility] MedinceComment on above:Chronic kidney disease, stage 4 (severe) (HCC) (Primary Dx); Benign essential hypertension ; Functional diarrhea; 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 ; Chronic diastolic congestive heart failure (HCC); HypokalemiaStart: 06-09-2025 End: 38-79-5696euqfvptpuqOPTOLV B BERRYNot AvailableStart: 04-08-2025 End: 85-74-0465Fdgsnkgvol and management of inpatientObaydsandra Valdez MD-[address] [place] [address] Work Phone: Start: 62-48-6037Dsr-patient / Non-visitJolala Arrington MD-[facility] Work Phone: Start: 04-08-2025 End: 80-09-3605ganzwmvvfeEddbii Berry II Work Phone: [facility] Work Phone: Start: 04-08-2025 End: 50-93-8115Gzhduor encounter Sergei Patino MD-[facility] [place] Work Phone: Start: 04-04-2025 End: 07-62-8441bsnvsmfwemDKIA Wilson Healthtart: 04-02-2025 End: 44-22-2289Nkvn visit est pt mod-hi severity 40 minutes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 DIESEL MACHINIST Work Phone: noms [facility] ACOComment on above:Benign essential hypertension (Primary Dx); Chronic kidney disease, stage 4 (severe) (HCC); Localized edema; Right flank pain; Routine lab drawStart: 04-02-2025 End: 41-55-5899Xdcseyq encounter status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 DIESEL MACHINIST Work Phone: noms HealthcareStart: 03-25-2025 End: 59-69-2090WlsvpjSssll Dukles LPNNOMS CI FMComment on above:Benign essential hypertension ; Gastroesophageal reflux disease, unspecified whether esophagitis present; Insomnia due to medical conditionStart: 03-24-2025 End: 51-00-5957sifslsigkfNDZEIJ B BERRYNot AvailableStart: 03-24-2025 End: 17-70-2165Fuybsdenlsej care manage srvc 14 day dischargeDsrikanth Vogt MD Work Phone: noms CI FMComment on above:Atherosclerosis of [place] coronary artery of [place] heart with stable angina pectoris (Primary Dx); Type 2 diabetes mellitus with stage 4 chronic kidney disease, without long-term current use of insulin (HCC); Insomnia due to medical condition; Chronic kidney disease, stage 4 (severe) (HCC); Primary osteoarthritis of both kneesStart: 44-98-5760Rmxhyhdigf and management of inpatientCALEB T [facility] Centertart: 03-13-2025 Evaluation and management of inpatientCALEB T [facility] Centertart: 17-28-5329Omcetsyspx and management of inpatientCALEB T [facility]: [id number] and management of inpatientCALEB T [facility]: 03-13-2025 End: 48-93-7586Hycfmcaqjc and management of inpatientJEFFERY [facility]: 02-25-2025 End: [id number] Jason Moncada DIESEL MACHINIST Work Phone: [facility] CI FMStart: 02-25-2025 End: [id number] Jason Moncada NP Work Phone: no[facility] CI FMStart: 02-25-2025 End: 02-03-6314Drctqr outpatient visit 25 minutesSherri M Micheal DIESEL MACHINIST Work Phone: NOMS CI FMComment on above:Thyroid nodule (CMS/HCC) (Primary Dx); 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/HCC); Chronic kidney disease, stage 4 (severe) (CMS/HCC); Hair loss; Other fatigue; Weight loss; Depressive disorder (CMS/HCC); Decreased estrogen levelStart: 02-25-2025 End: 52-82-3423tzukqznpmgBXSFCG M SHIVELYNot AvailableStart: 01-02-2025 End: 83-70-5465Vtwavf flowsLuis Vogt MD Work Phone: [facility] CI FMStart: 01-02-2025 End: 20-89-4608Yrtsrc Berenice Vogt MD Work Phone: [facility] CI FMStart: 01-02-2025 End: 64-07-4140iawqwsyajpBRNMMB B BERRYNot AvailableStart: 01-02-2025 End: 20-24-1797Ghbbci outpatient visit 25 minutesJack Vogt MD Work Phone: [facility]S CI FMComment on above:Stage 3b chronic kidney disease (HCC) (CMS/HCC) (Primary Dx); Pulmonary fibrosis, unspecified (CMS/HCC); Localized edema; Anxiety; Depressive disorder (CMS/HCC)Start: 12-12-2024 End: 39-61-0667Qxlqho Berenice Vogt MD Work Phone: [facility] CI FMStart: 12-12-2024 End: 68-01-8587Zgottl Berenice Vogt MD Work Phone: [facility] CI FMStart: 12-12-2024 End: 71-64-7033wibqvlmdcoWMKSHX B BERRYNot AvailableStart: 12-12-2024 End: 24-24-2453Jvbqi of hemosiderin, Roz Vogt MD Work Phone: [facility] Work Phone: Start: 12-12-2024 End: 82-22-7394Foaoilc encounter procedureDaniel B Vogt MD Work Phone: noms CI FMComment on above:Routine general medical examination at health care facility (Primary Dx); ACP (advance care planning); Spinal stenosis, lumbar region with neurogenic claudication; Stage 3b chronic kidney disease (HCC) (CMS/HCC); Pulmonary fibrosis, unspecified (CMS/HCC); Type 2 diabetes mellitus with diabetic peripheral angiopathy without gangrene ([facility]/HCC); Localized edemaStart: 11-18-2024 End: 61-07-2673sqqsqdzxmkYgqwzsq R WATERSFacility:EU BellevueStart: 11-18-2024 End: 82-07-0261Orwsyta encounter procedureAlfredo CARDENAS [facility] start: 11-03-2024 End: 94-02-0969PaeofvCdkocw B Berry MD Work Phone: noms CI FMComment on above:AnxietyStart: 09-30-2024 End: 62-26-3284sfhypeavxsHgukqct R WATERSFacility:EU evueStart: 09-30-2024 End: 63-71-7768Nafavke encounter procedureAlfredo CARDENAS [facility] start: 09-16-2024 End: 94-99-9982MvtebqLsvzzg B Berry MD Work Phone: noms CI FMComment on above:Insomnia due to medical conditionStart: 09-13-2024 End: 23-64-2864Pgynfucaz Result EncounterGeneric External Data ProviderNOMS External Department UnsolicitedStart: 09-13-2024 End: 77-96-5319Sjwdejuuu Result EncounterGeneric External Data ProviderNOMS External Department UnsolicitedStart: 04-24-2024 End: 05-40-1043kajusslgbkNWMSCY VAANDRÉSSelect [facility] Start: 03-19-2024 End: 64-65-5562ciosepedmdQvnhnf X OrzechFacility:EU tart: 03-19-2024 End: 76-50-2405Zdlddyu encounter procedureAurora X Orzech [facility] start: 74-57-7792cjwlgtgnkxAgzrak X OrzechFacility:EU BellevueStart: 02-05-2024 End: 45-37-7688sjtxnwthsqQA Jack Vogt Work Phone: [facility] Work Phone: Start: 02-05-2024 End: 64-11-8973Pnmplxg encounter procedureII Jack Vogt Work Phone: [facility] Work Phone: Start: 11-23-2023 End: 19-89-4489Jmomrjf encounter procedureII Jack Vogt Work Phone: [facility] Work Phone: Start: 10-23-2023 End: 07-17-9279Frotqfu encounter procedureAlfredo CARDENAS [facility] start: 01-18-2023 End: 64-01-9718tgzibhkwrjWKJNWUN BOESFacility:Y0Jlaab: 01-10-2023 End: 63-95-3796stdrqgmpktEPESXFR BOESFacility:Z6Rgcul: 09-26-2022 End: 60-70-0247Jtnosbd encounter procedureAlfredo CARDENAS [facility] start: 09-07-2022 End: 86-36-4785xcqrqpkvjgWCYKPP SHIVELYFacility:A6Jvvfe: 08-29-2022 End: 43-29-8567fylrixptogKCXSUUD WATERSFacility:E4Bvsgr: 03-16-2022 End: 76-35-2362mjyrlwoebuJKERMSV TUCKERFacility:W8Abrdq: 03-04-2022 End: 41-98-6329Zbilypl encounter procedurePaelza Moya CARDENAS [facility] start: 02-22-2022 End: 79-02-8848jstmmespslTCOXKJJ WATERSFacility:Y6Zjulf: 02-16-2022 End: 86-00-3212vceqsipykvCXEXUOM TUCKERFacility:X4Vvngi: 02-04-2022 End: 73-86-3513fqqydwupaaYHHYDSV BRYANERFacility:A2Asztx: 02-02-2022 End: 69-08-3058Haolept encounter procedureII Jack Vogt Work Phone: [facility] Start: 01-31-2022 End: 56-90-2931wpdwmesxaiUJURXHY BRYANERFacility:K0Vzhoe: 06-04-2018 End: 03-57-5943Duiabypanw and management of inpatientBO [facility]art: 05-23-2018 End: 75-12-9827Panrfas encounterBO [facility]art: 05-23-2018 End: 02-96-1120Aymrlhm encounterKindred Hospital - [facility] Procedures DateProcedureProcedure DetailPerforming ClinicianStart: 98-23-8507QOEI CBC WITH PLATELET NO DIFFERENTIALGeneric External Data ProviderStart: 06-27-2025 Comprehensive metabolic panelJack Vogt MD Work Phone: Start: 57-24-7225RAR PRO BNPDabambi Vogt MD Work Phone: Start: 07-14-9335BAV CMP (CMP) (FOR REMOTE [facility] USE) Jack Vogt MD Work Phone: Start: 55-37-4038MMU W/REFLEX Y2Rpjrmdbambi Vogt MD Work Phone: Start: 08-61-9905Uczntbua screenEarl HaleyComment on above:Result Comment: PERFORMED BY: [facility] [place] [address] PATHOLOGIST IGNITION SPECIALIST ELIZABETH MOREL M.D.Start: 57-07-5232Kcsma chest X-rayDabambi Vogt II Work Phone: Start: 53-85-1058DA of abdomen and pelvis without contrastDabambi Vogt II Work Phone: Start: 93-15-1179Gvwmefaqpe glycosylated s5gTxcbpiJack Vogt MD Work Phone: Start: 14-27-4974YEZ CREATININEGeneric External Data ProviderStart: 02-05-2024 End: 62-83-4861Rcsbcdpqs mammography of bilateral breastsII Jack Vogt Work Phone: Start: 26-40-0507Xctuyn X-rayII Jack Vogt Work Phone: Start: 27-36-7112F-ray of both kneesII Jack Vogt Work Phone: Start: 86-19-8727Lvuygyjtb mammography of bilateral breastsII Jack Vogt Work Phone: Start: 29-48-8275AtpmqgokywgLdeoori ProviderStart: 83-22-2183Cbgdbod of coronary artery bypass graftingHistory of coronary artery bypass surgeryGeneric ProviderStart: 02-30-6537Xrjymha of placement of stent for coronary artery diseaseHistory of coronary artery stent placementGeneric ProviderStart: 49-01-7185TMPNXLVPE SPIROMETRY RTBO YOOStart: 66-32-2168XMSHC OXIMETRY, CONTINUOUSBO YOOStart: 53-85-8825RYCZXCQFP SPIROMETRY RTBO YOOStart: 50-06-1656DJVZZNIZI SPIROMETRY RTBO YOOStart: 64-83-6955CUAHI OXIMETRY, CONTINUOUSBO YOOStart: 36-71-9606ZQZJIPLYQ SPIROMETRY RTBO YOOStart: 06-07-2018 INCENTIVE SPIROMETRY RTBO YOOStart: 09-49-2597YQUTGPQP OXYGEN THERAPY PROTOCOLBO YOOStart: 61-76-4949CHYSQ OXIMETRY, CONTINUOUSBO YOOStart: 03-26-4180TOODINIHA PATIENTBO YOOStart: 02-96-8863EE CONSULT TO HOME CARE NEEDSBO YOOStart: 85-54-7505KCSGPKZAZ SPIROMETRY RTBO YOOStart: 84-06-2172Wyfvl count complete auto&auto difrntl wbcBO YOOStart: 36-59-2523Xnzdcjeveawqk metabolic panelBO DESIRAE Start: 71-38-3072TMXWG OXIMETRY, CONTINUOUSBO YOOStart: 87-86-6112ZKCZAA AND OUTPUTBO YOOStart: 47-79-3663RSVSE OXIMETRY, CONTINUOUSBO YOOStart: 06-07-2018 INCENTIVE SPIROMETRY RTBO YOOStart: 78-15-8777YRCVISRVN SPIROMETRY RTBO DESIRAE Start: 72-01-7462IGXJM OXIMETRY, CONTINUOUSBO YOOStart: 52-36-4674MZHQSZAPC SPIROMETRY RTBO YOOStart: 27-79-7606WOJEQLLPZ SPIROMETRY RTBO YOOStart: 42-02-3581YCBGK OXIMETRY, CONTINUOUSBO YOOStart: 93-15-2736ZKJAZKRUQ SPIROMETRY RTBO YOOStart: 33-05-5762JPSPEJUZX SPIROMETRY RTBO YOOStart: 66-06-7566FNAVR OXIMETRY, CONTINUOUSBO YOOStart: 05-30-4521AFBCKMXJK SPIROMETRY RTBO YOOStart: 37-67-5914AERBQWZEJ SPIROMETRY RTBO YOOStart: 10-18-6702VMANGWTY OXYGEN THERAPY PROTOCOLBO YOOStart: 66-05-0197EMFYM OXIMETRY, CONTINUOUSBO YOOStart: 06-06-2018 Radiologic exam chest 2 viewsBO YOOStart: 18-44-4966TZGDZCNHD SPIROMETRY RTBO YOOStart: 08-42-4405Zbyzb metabolic panel calcium totalBO YOOStart: 06-06-2018 Blood count complete auto&auto difrntl wbcBO YOOStart: 14-16-5180PXOZC OXIMETRY, CONTINUOUSBO YOOStart: 33-15-3862MMOUMF AND OUTPUTBO YOOStart: 71-20-9425FUGHZ OXIMETRY, CONTINUOUSBO YOOStart: 49-06-5587EJAYLXN COMMUNICATIONBO YOOStart: 38-11-1451IYTIWFMTN SPIROMETRY RTBO YOOStart: 48-75-3931XBCFBEFOB SPIROMETRY RT SHAKA YOOStart: 15-91-7368BOLKG OXIMETRY, CONTINUOUSBO YOOStart: 06-05-2018 INCENTIVE SPIROMETRY RTBO YOOStart: 25-01-9976QAAKDJAMF SPIROMETRY RTBO DESIRAE Start: 83-95-4701UXIZF OXIMETRY, CONTINUOUSBO YOOStart: 05-51-1831LNKNVMHFN SPIROMETRY RTBO YOOStart: 19-01-0154LJUQXYGPE SPIROMETRY RTBO YOOStart: 22-62-9516CBROT OXIMETRY, CONTINUOUSBO YOOStart: 52-05-9938BMNUJJGGZ SPIROMETRY RTBO YOOStart: 77-54-3933Prmri spine lumbosacral 2/3 viewsBO YOOStart: 58-98-0929EVFLDAPBH SPIROMETRY RTBO YOOStart: 66-28-9995NHTIP OXIMETRY, CONTINUOUSBO YOOStart: 08-28-0087YKFLINRN OXYGEN THERAPY PROTOCOLBO YOOStart: 21-54-1755UEOSFYQJB SPIROMETRY RTBO YOOStart: 49-22-5954Wdnnk count complete auto&auto difrntl wbcBO YOOStart: 00-24-0735Udyhxrpbjyvtp metabolic panelBO DESIRAE Start: 90-06-8875CBFPRDP HEELS OFF OF BEDBO YOOStart: 18-49-1419PXZW OF BED 60 DEGREES OR LESSBO YOOStart: 98-69-3053MNAHWSV COMMUNICATIONBO YOOStart: 84-29-7099ZTOL PATIENTBO YOOStart: 57-47-9028OSVQF OXIMETRY, CONTINUOUSBO DESIRAE Start: 85-57-0150YFSQSPBX TOLERATEDBO YOOStart: 79-03-2384XMFRUDJJ PATIENTBO YOOStart: 88-02-4185WGBLMYRE REMOVALBO YOOStart: 81-61-3412VCANP WEIGHTSBO DESIRAE Start: 43-42-7559HSHXQY AND OUTPUTBO YOOStart: 44-39-7384GL EVAL AND TREATBO DESIRAE Start: 18-33-6799EI EVAL AND TREATBO YOOStart: 09-96-9081JVAYN OXIMETRY, CONTINUOUSBO YOOStart: 86-68-0016XBPSTVPKD SPIROMETRY RTBO YOOStart: 06-04-2018 INCENTIVE SPIROMETRY RTBO YOOStart: 12-31-2647DYYVX OXIMETRY, CONTINUOUSBO DESIRAE Start: 81-95-9695AOMHNDXKV SPIROMETRY RTBO YOOStart: 27-72-6435HUHPF INTERMITTENT PNEUMATIC COMPRESSION DEVICEBO YOOStart: 69-24-6653MXWQL OXIMETRY, CONTINUOUSBO YOOStart: 25-10-7915LTQEAWE DIET TOLERATED (NURSING COMMUNICATION)SHAKA YOOStart: 04-40-0714UKIUZCDY INDWELLING CATHETHERBO YOOStart: 76-21-3291RCYHWOI HOBBO YOOStart: 85-12-6972OZBZ CODEBO YOOStart: 06-04-2018 INITIATE OXYGEN THERAPY PROTOCOLBO YOOStart: 86-68-7632KLBGPL AND OUTPUTBO DESIRAE Start: 36-64-5218QWOFD/VASCULAR CHECKSBO YOOStart: 92-75-5244SSTGGP PHYSICIAN (SPECIFY)SHAKA YOOStart: 93-72-7750VTXVJFV CESSATION EDUCATIONBO YOOStart: 15-48-7011AUFBW SIGNSBO YOOStart: 07-11-6681ODFAM CAREBO YOOStart: 06-04-2018 DIET GENERALBO YOOStart: 60-81-8277ZMYTNRAET MONITORINGBO YOOStart: 06-04-2018 Blood count complete automatedBO YOOStart: 33-43-9663Folbwvceijkpb metabolic panelBO YOOStart: 14-14-3879QCDZRQK STATUS (FROM ED OR OR/PROCEDURAL)SHAKA DESIRAE Start: 11-87-6793DACBZNWS PATIENTBO YOOStart: 24-62-6385EKJEAA FOR SURGICAL PROCEDURESBO YOOStart: 74-31-2942XAYMVTGW PATHOLOGYBO YOOStart: 06-04-2018 SURGICAL PATHOLOGYBO YOOStart: 34-23-9711RAY GLUCOSE FINGERSTICKBO YOOStart: 14-49-7364KYSQ GLUCOSEBO YOOStart: 23-79-9318Zfrdgjh bacterial quanttative colony count urineBO YOOStart: 65-78-8143Tzbnespfbyn urinalysisBO YOOStart: 72-91-2953UXUW AND SCREENBO YOOStart: 53-74-5731Wsn prsmptv pthgnc organism scrn w/colony estimjBO YOOStart: 29-57-4407Evobx entir thrc lmbr crv sac spi w/skull 2/3 vwBO YOOStart: 42-08-2412Uslbx count complete automatedBO YOOStart: 47-03-6936Mnvoggtgdmg timeBO YOOStart: 63-64-4819ZITML RT REFLEX TO CULTUREBO YOOStart: 29-21-7564Sisme metabolic panel calcium totalBO YOOStart: 05-23-2018 EKG 12-LEADBO YOOCholecystectomyPatrick ColonaryConcepts ColonoscopyPatrick ColonaryConcepts Procedure on backPatrick ColonaryConcepts TonsillectomyPatrick ColonaryConcepts Plan of Treatment DateCare ActivityDetailAuthorStart: 04-63-6937Idxdheylp for malignant neoplasm of colonNOMS HealthcareStart: 03-27-2026Medicare Annual Wellness (AWV)Medicare Annual Wellness (AWV)NOMS HealthcareStart: 06-27-2025 End: 60-99-9014Lbpyber encounter /10/2025 12:00 PM EDT Office Visit [facility] [address] [facility] [address] [place] [address] 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, DIESEL MACHINIST [address] [place] [address] [facility] ACOStart: 06-23-2025 End: 18-12-1368Ckmcqtr encounter brhoygdno81/06/2025 3:30 PM EDT Office Visit [facility] [place] [facility] [address] [facility] [address] [place] [address] Jack Vogt MD [address] [facility] [address] [place] [address] [facility] [place] [facility]Start: 06-09-2025 End: 57-83-4829Epbpeifozlmoh metabolic 2000 panel - Serum or PlasmaComprehensive metabolic panel Lab Routine Chronic kidney disease, stage 4 (severe) (HCC) Expected: 06/09/2025 (Approximate), Expires: 06/09/2026NOMS HealthcareComment on above:Expected: 06/09/2025 (Approximate), Expires: 06/09/2026Start: 06-09-2025 End: 08-75-9504Vrppjhrfvbf peptide B [Mass/volume] in BloodB-type natriuretic peptide Lab Routine Chronic kidney disease, stage 4 (severe) (HCC) Chronic diastolic congestive heart failure (HCC) Expected: 06/09/2025 (Approximate), Expires: 06/09/2026[facility] Work Phone: Comment on above:Expected: 06/09/2025 (Approximate), Expires: 06/09/2026Start: 06-09-2025 End: 77-85-7849SRA W/REFLEX TO FT4TSH W/REFLEX TO FT4 Lab Routine Chronic kidney disease, stage 4 (severe) (HCC) Expected: 06/09/2025(Approximate), Expires: 06/09/2026[facility] HealthcareComment on above:Expected: 06/09/2025 (Approximate), Expires: 06/09/2026Start: 06-09-2025 End: 43-92-9764Cmjesxs encounter yfnmhwypq16/22/2025 11:15 AM EDT Office Visit [facility] [place] [facility] [address] [facility] [address] [place] [address] Jack Vogt MD [address] [facility] [address] [place] [address] ArrivedGARFIELD MEMORIAL [facility] [place] [facility] HospitalnceComment on above:ArrivedStart: 05-26-2025 End: 89-43-8687Nvtismp encounter zylhgzlwe46/08/2025 3:30 PM EDT Office Visit [facility] [address] [facility] [address] [place] [address] Jack Vogt MD [address] [facility] [address] [place] [address] NOMS CI FMStart: 48-81-3806Pntqrehjk [facility] HealthcareStart: 70-15-3909JejfmqvijProtestant Deaconess Hospitaltart: 04-10-2025 Referral to rehabilitation physicianProtestant Deaconess Hospitaltart: 46-31-3639YajnjzwnyProtestant Deaconess Hospitaltart: 51-08-7720RvbtbvmtrProtestant Deaconess Hospitaltart: 09-27-2116Abolkwxp therapy procedureProtestant Deaconess Hospitaltart: 95-21-0754Epwhghrt to occupational therapistProtestant Deaconess Hospitaltart: 77-00-1115MtceyjhqcProtestant Deaconess Hospitaltart: 21-81-9171Bkptziuj to gastroenterologistProtestant Deaconess Hospitaltart: 77-61-7162Dodlbvbb to nephrologistProtestant Deaconess Hospitaltart: 32-36-6619Swxehkzk admissionProtestant Deaconess Hospitaltart: 04-02-2025 End: 31-73-7831WJE W Auto Differential panel - BloodCBC and differential Lab Routine Benign essential hypertension Chronic kidney disease, stage 4 (severe) (HCC) Localized edema Expected: 04/02/2025 (Approximate), Expires: 04/02/2026 [facility] Healthcare Work Phone: Comment on above:Expected: 04/02/2025 (Approximate), Expires: 04/02/2026Start: 04-02-2025 End: 52-58-8463Nbrfghjsbfgln metabolic 2000 panel - Serum or PlasmaComprehensive metabolic panel Lab Routine Benign essential hypertension Chronic kidney disease, stage 4 (severe) (HCC) Localized edema Expected: 04/02/2025 (Approximate), Expires: 04/02/2026[facility] HealthcareComment on above:Expected: 04/02/2025 (Approximate), Expires: 04/02/2026Start: 04-02-2025 End: 83-66-9553TDCUMEQGAK, COMPLETE W/REFLEX TO CULTUREURINALYSIS, COMPLETE W/REFLEX TO CULTURE Lab Routine Right flank pain Expected: 04/02/2025 (Approxim ate), Expires: 04/02/2026[facility] HealthcareComment on above:Expected: 04/02/2025 (Approximate), Expires: 04/02/2026Start: 92-37-8333Ytfnzlcqxv A1c measurement Diabetes: Hemoglobin U0UILYW HealthcareStart: 02-25-2025 End: 78-37-0199KIX Skeletal system Views for bone densityDEXA bone density Imaging Routine Decreased estrogen level Expected: 02/25/2025, Expires: 02/25/2026[facility] HealthcareComment on above:Expected: 02/25/2025, Expires: 02/25/2026Start: 02-25-2025 End: 91-64-0728BW Thyroid glandUS thyroid Imaging Routine Thyroid nodule ([facility]) Hair loss Other fatigue Weight loss Expected: 02/25/2025, Expires: 02/25/2026[facility] Work Phone: Comment on above:Expected: 02/25/2025, Expires: 02/25/2026Start: 02-25-2025 End: 06-32-0304Uhmouyh encounter tiqfqbmox96/10/2025 11:30 AM EDT Office Visit [facility] [address] [facility] [address] [place] [address] Renetta Moncada NP [address] [facility] [address] [place] [address] ArrivedNOMS CI FMComment on above:ArrivedStart: 68-83-6028Fzgxxjedd for malignant neoplasm of breastMammogramGARFIELD MEMORIAL HOSPITAL Healthcare Start: 01-02-2025 End: 07-61-9067Uozqvha encounter ctnzwdauo24/17/2025 9:30 AM EDT Office Visit [facility] [address] [facility] [address] [place] [address] Jack Vogt MD [address] [facility] [address] [place] [address] NOMS CI FMStart: 12-12-2024 End: 77-94-3505Ioinpiavydiyt metabolic 2000 panel - Serum or PlasmaComprehensive metabolic panel Lab Routine Stage 3b chronic kidney disease (HCC) (CMS/HCC) Expected:12/12/2024 (Approximate), Expires: 12/12/2025[facility] HealthcareComment on above:Expected: 12/12/2024 (Approximate), Expires: 12/12/2025Start: 12-12-2024 End: 38-93-4424Hclwl 1996 panel - Serum or PlasmaLipid panel Lab Routine Type 2 diabetes mellitus with diabetic peripheral angiopathy without gangrene ([facility]/HCC) Expected: 12/12/2024 (Approximate), Expires: 12/12/2025[facility] HealthcareComment on above:Expected: 12/12/2024 (Approximate), Expires: 12/12/2025Start: 03-27-2025Medicare Annual Wellness (AWV)Medicare Annual Wellness (AWV)[facility] HealthcareStart: 12-12-2024 End: 17-56-0181Fkopexavevt [Units/volume] in Serum or PlasmaTSH Lab Routine Localized edema Expected: 12/12/2024 (Approximate), Expires: 12/12/2025[facility] Work Phone: Comment on above:Expected: 12/12/2024 (Approximate), Expires: 12/12/2025Start: 12-12-2024 End: 57-41-3094Vmkxtgiyz (T4) free [Mass/volume] in Serum or PlasmaT4, free Lab Routine Localized edema Expected: 12/12/2024 (Approximate), Expires: 12/12/2025 [facility]S HealthcareComment on above:Expected: 12/12/2024 (Approximate), Expires: 12/12/2025Start: 12-12-2024 End: 74-84-9824Kskkuhchejrrytdl (T3) Free [Mass/volume] in Serum or PlasmaT3, free Lab Routine Localized edema Expected: 12/12/2024 (Approximate), Expires: 12/12/2025[facility] HealthcareComment on above:Expected: 12/12/2024 (Approximate), Expires: 12/12/2025Start: 42-10-3180Hrdpw screening for proteinDiabetes: Urine Protein ScreeningNODC HealthcareStart: 12-12-2024 End: 45-01-4471Bfddvtp encounter oyhienpbw84/27/2025 11:30 AM EDT Office Visit [facility] [address] [facility] [address] [place] [address] Jack Vogt MD [address] [facility] [address] [place] [address] NOMS CI FMStart: 99-32-8823Genhavyr screeningDiabetes: Retinopathy ScreeningNODC HealthcareStart: 98-09-4775Urqipdgxvl A1c measurement Diabetes: Hemoglobin S5LOZNY HealthcareStart: 28-80-5258Vttdtedur vaccination Influenza Vaccine (#1)[facility] HealthcareStart: 16-02-5150Vhhsfvusf for malignant neoplasm of colonGARFIELD MEMORIAL HOSPITAL HealthcareAlbumin/Globulin ratioChildren'S Hospital For RehabilitationAnion gap measurementChildren'S Hospital For RehabilitationaPTT in Platelet poor plasma by Coagulation assayChildren'S Hospital For RehabilitationBasophils [#/volume] in Blood by Automated countChildren'S Hospital For Rehabilitation Basophils/100 leukocytes in Blood by Automated countChildren'S Hospital For RehabilitationCBC W Auto Differential panel - BloodCBC and differential Lab Routine Stage 3b chronic kidney disease (HCC) (CMS/HCC) Ordered: 12/12/2024[facility] HealthcareComment on above:Ordered: 12/12/2024BC W Auto Differential panel - BloodCBC and differential Lab Routine Chronic kidney disease, stage 4 (severe) (HCC) Ordered: 06/09/2025[facility] HealthcareComment on above:Ordered: 06/09/2025 Eosinophils/100 leukocytes in Blood by Automated countChildren'S Hospital For RehabilitationErythrocyte distribution width [Ratio] by Automated [facility] HospitalErythrocytes [#/volume] in [facility]terson Medical CenterGlobulin [Mass/volume] in SerumChildren'S Hospital For Rehabilitation Hematocrit [Volume Fraction] of [facility] Medical CenterHemoglobin [Mass/volume] in [facility] Medical CenterINR in Platelet poor plasma by Coagulation assayChildren'S Hospital For RehabilitationLeukocytes [#/volume] corrected for nucleated erythrocytes in Blood by Automated coun [facility] Hospital For RehabilitationLeukocytes [#/volume] in [facility] Medical CenterLymphocytes [#/volume] in Blood by Automated count [facility] For RehabilitationLymphocytes/100 leukocytes in Blood by Automated countChildren'S Hospital For RehabilitationMCH [Entitic mass] by Automated countChildren'S Hospital For RehabilitationMCHC [Mass/volume] by Automated count [facility] For RehabilitationMCV [Entitic volume] by Automated count [facility] For RehabilitationMonocytes [#/volume] in Blood by Automated countChildren'S Hospital For RehabilitationMonocytes/100 leukocytes in Blood by Automated countChildren'S Hospital For RehabilitationNeutrophils [#/volume] in Blood by Automated countChildren'S Hospital For RehabilitationNeutrophils/100 leukocytes in Blood by Automated [facility] HospitalNucleated erythrocytes [Presence] in Blood by Automated countChildren'S Hospital For RehabilitationPatient EducationHope PamphletMercy Health Tiffin Hospital Ctr Work Phone: Patient referralMercy Health Tiffin Hospital Ctr Work Phone: Platelet mean volume [Entitic volume] in Blood by Automated [facility] HospitalPlatelets [#/volume] in Blood [facility] For RehabilitationProthrombin time (PT)[facility] For RehabilitationRenal function 1999 panel - Serum or PlasmaHCA [facility] Immunizations Immunization DateImmunizationNotesCare YjankliqHhxuxyik56-54-5407uzakweagv virus vaccine, unspecified formulationNimbula [facility]10-17-2022Influenza, Seasonal, Quadrivalent, AdjuvantedGeneric Provider [facility] Tjwcyofopg12-72-7984Haetdfz Bivalent Booster VaccinationGeneric Provider [facility]S Vbckxrkuvp65-07-4499UHBX-SfT-5 (COVID-19) mRNAMUL.ORD![id number] [facility]10-07-2021influenza virus vaccine, unspecified formulationNimbula [facility]10-07-2021Influenza, High-dose Seasonal, Quadrivalent, Preservative Free Generic ProviderNOMS Lvfjhstbde23-18-2448GOVX-ExR-2 (COVID-19) mRNA BNT-162b2 Digital [employer]oy [facility] on above:Result Comment: 2022-09-26: [id number]-YiK-6 (COVID-19) mRNA BNT-162b2 Digital [employer] [facility] on above:Result Comment: 2022-09-26: [id number]-PyL-7 (COVID-19) mRNA BNT-162b2 vaxAlfredo CARDENAS [facility] on above:Result Comment: 2022-09-26: [id number] virus vaccine, unspecified formulationAlfredo CARDENAS [facility]10-21-2020Influenza, Seasonal, Quadrivalent, AdjuvantedGeneric Provider [facility] HealthcareAqstdioqzm22-75-1369Ntxhklhy Monkeypox, Live Attenuated, Preservative Free Generic ProviderMissouri Southern HealthcareAnkozprcnr06-39-9905igqwkbmpztvr polysaccharide vaccine, [address] [facility] Payers DatePayer CategoryPayerPolicy [id number] 2023Medicare (Managed Care) [id number] [id number] [id number] 1960Private Health [id number] 2.840.1.072928.3.579.[id number] 2.840.1.086690.3.579.2.50581-54-0045Wexdctt2593740 2.840.1.729583.3.579.2.56567-19-8663Zbgjyqt4854375 2.16.840.1.386148.3.579.2.50015-77-8616Kqtamgg6966125 2.16.840.1.078974.3.579.2.09292-29-6144Ftmagcw4603062 2.16.840.1.896573.3.579.2.13416-81-2498Zqddrso5607336 2..840.1.866537.3.579.2.27324-16-5020Qczkevr8898835 2.16.840.1.872109.3.579.2.46043-31-1227Dpoubwy6470220 2.840.1.631931.3.579.2.14122-05-8952Ddxskje9734275 2.840.1.417596.3.579.2.86383-78-0111Jioatev21032934 2.840.1.257056.3.579.2.32513-70-3442Hdjhesh87155789 2.840.1.188899.3.579.2.67152-89-8173Mbwxgrb64305117 2..840.1.295370.3.579.2.76933-21-4497Mbpiqmo57636465 2.840.1.104151.3.579.2.29515-32-8142Dyoqnkh25187654 2.840.1.447931.3.579.2.28097-82-6840Iddbxny1981 2..840.1.212387.3.579.2.130851-25-9700Fffommm58814648 2.840.1.071159.3.579.2.548686-94-8819Bxlnvbj14616355 2.840.1.433351.3.579.2.873736-92-3508Geywspr5336229 2..840.1.108408.3.579.2.231453-77-7586Crgloje1049155 2.16.840.1.651069.3.57[id number] Health InsuranceGrand [facility] Joint [facility] [id number] BC/[id number] 3w46092k-q34n-0816-88k2-o38efujvh202Jrgocxg01062914 2.16.840.1.616097.3.579.2.531 Social History DateTypeDetailFacilityStart: 03-25-2021 End: 03-98-9439Vzwrsce smoking status NHISEx-smoker (finding)[facility] Hospitaltart: 03-20-2024 End: 34-78-8754Ptbmlrh of tobacco useGuernsey Memorial Hospital Work Phone: Start: 47-30-4030Cfi Assigned At BirthWexner Medical Centertart: 45-26-0675Gfpvern smoking statusNeverExecutive Urology of Acm[facility] Glen[facility]igh BellevueStart: 31-90-3227Ibbsjhh smoking status NHISNever smoked tobaccoNOMS HealthcareStart: 05-09-2023 End: 77-95-6506Xcqdaif use and exposureSmokeless tobacco non-userNOMS Healthcare Start: 03-20-2024 End: 46-70-8259Yzjbdvnqq beverage intakeNot AskedNOMS HealthcareStart: 03-20-2024 End: 19-05-7060Vklgdir of Social functionNOMS HealthcareStart: 69-13-9835Smdpxtz Commentcaffeine yes type:coffeeNOMS HealthcareStart: 72-84-7654How assigned at birthNot on fileNOMS HealthcareStart: 47-62-6269Lifrydy smoking status NHIS Current some day smokerProtestant Deaconess HospitalexFemale (finding) [facility] Hospitaltart: 04-09-2025 End: 60-56-3576WROI Follow upSDOH Follow upGuernsey Memorial Hospital Work Phone: History of tobacco useCurrent smokerNOMS Healthcare History of tobacco useCigarette SmokerNOMS HealthcareNEGATED: Highlighted row [facility] Goals DatePatient GoalDesired Activity/StatePersonal health goal Functional Status HfwyMsolhuxxfcJxxmohUnnexvsf38-66-4060Qskuldc Health Questionnaire 2 item (PHQ- 2) [Reported][facility] HealthcareKndissnhxc96-76-6256KFJ-2 quick depression assessment panel [Reported.PHQ][facility] HealthcareDogutftaxh89-09-2894Zmizblerku StatusN/AExec[facility]07-02-2024Functional StatusN/A[facility]02-05-2024Functional StatusN/A [facility]01-09-2023Functional StatusN/A[facility]06-17-2022 Functional StatusN/AExec[facility] Clinical Notes 03-04-2022 to 06-27-2025 Note Date & FevzFakoWwhkrfej35-98-5102 History of Present illness Narrative* Ana Rosa [...] being seen for a f2f for [facility]. Patient reports that she had not seen nephrology since prior to her 03/2025 hospitalization, but hasan appt with them on 07/15/25. She also has a cardiology visit scheduled for 07/04/25. She admits that she has not been checking her blood pressure. She does have family check in on her frequently and her rigviauf-rh-qbe is filling her pill boxes for her. [...] sister has brought her some foods from [employer] such as soup, banana bread, quiche, and fruit. Most of her in home meal prep is limited to warming meals up, ormaking simple things such as scrambled eggs, japanese toast, etc. Pt has lost considerable weight [...] would be sent. Also discussed referral to dealer sales rep. She states she will wait until after her nephrology appt. 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 Denies any recent falls. Primary activity is sitting on the couch, however, she does have a foot pedal oil recovery unit operator she says she uses once/day. She [...] bilateral femoral stent FEMORAL ARTERY STENT Bilateral SC REMOVE TONSILS/ADENOIDS,12+ Y/O SPINE SURGERY fusion of [...] up scheduled for 07/04/25 3. Atherosclerosis of [place] coronary artery of [place] heart with stable angina pectoris This is [...] confined to the home and needs intermittent half-way care physical therapy occupational therapy. I have initiated the establishment of the plan of care. The patient will be followed by a physician, Dr. Vogt, who will periodically review the plan of care. The findings from this kgrl-ue-wvpo encounter have been communicated with the patient's [...] or fail to improve. documented in this encounterNOMercy Hospital St. John'sYgsqzmrqhw96-20-5619 Telephone encounter Note* Telephone Encounter - Ana [...] should be the talking to pt re: NOMS Vazpctjmur43-25-7148 Telephone encounter Note* Telephone Encounter - 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 NP - 06/27/2025 9:35 AM EDT VM received: Good morning. My name is Fabby Meyers, I am calling on behalf of my mother in law who I believe has an appointment scheduled today at noon, her name is Marleni Dennis and date of 1950, her phone number is [phone] last [id number] We were unaware that I believe probably [...] me. At the earliest convenience, it is [phone]. My name is Fabby, I am to her son, Tarun. I mean, you can also call Marleni to confirm this. Information, if you like. I gave the phone number for her as well, thank you. [facility] HealthcareOsesagzuxp37-64-8213 Miscellaneous Notes* Telephone Encounter - 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 NP - 06/27/2025 9:35 AM EDT Call returned. Explained that toney's visit would be a home visit for [...] date of 1950, her phone number is [phone] last [id number] We were unaware that I believe probably [...] me. At the earliest convenience, it is [phone]. My name is Fabby, I am to her son, Tarun. I mean, you can also call Marleni to confirm this. Information, if you like. I gave the phone number for her as well, thank you. documented in this encounterMissouri Southern HealthcareEosepjdedb30-87-8570 History of Present illness Narrative* Jack Vogt [...] bilateral femoral stent FEMORAL ARTERY STENT Bilateral SC REMOVE TONSILS/ADENOIDS,12+ Y/O SPINE SURGERY fusion of [...] 0.55 - 1.02 mg/dL Final [facility] EGFR-AF SAMMARINESE 06/09/2025 14 (L) >=60 mL/min/1.73m 2 Final [facility] EGFR-NON AF SAMMARINESE 06/09/2025 12 (L) >=60 mL/min/1.73m 2 Final [...] Greater than 45 minutes was spent in lopi-zp-upym consultation and coordination of care. Follow up in about 2 weeks (around 06/23/2025). documented in this encounterMissouri Southern HealthcareEfjawvvxgi78-46-1666 History and physical note Author Rajiv Trejo [facility] For RehabilitationNote Date/TimeJuly 2024 11:50[place] [address] Hospitalist H&P Signed Patient: Marleni Dennis MR#: [id number] : 1950 Acct:[id number] Age/Sex: 74 / F Adm Date: 5 Loc: Room: [address] [place] [address] Type: ADM IN Attending Dr: Rajiv Trejo [...] anemia. Patient follows with her PCP in [place] and was referred to nephrology clinic for [...] negative unless noted below or in HPI [facility] Medical History Iron deficiency anemia Former [...] (From Pneumovax-23) Allergy (Verified 04/08/25 18:01) Edema Yfrfdwa-WPA-VdD Reductase Inhibitor (Lmvbuwv-Fgl-Fzh Reductase Inhibitor) Allergy (Verified 04/08/25 18:01) Unknown [...] % (Auto) 23.3 % (.) 04/08/25 18:54 [place] % (Auto) 10.0 % (.) 04/08/25 18:54 Eos % (Auto) 2.6 % (.) 04/08/25 18:54 Baso % (Auto) 1.0 % (.) 04/08/25 18:54 Nucleat RBC Rel Count 0.1 /100 WBC (0-0.5) 04/08/25 18:54 Neut # (Auto) 2.8 x10E3/uL (1.8-7.7) 04/08/25 18:54 Lymph # (Auto) 1.0 x10E3/uL (1.00-4.8) 04/08/25 18:54 [place] # (Auto) 0.4 x10E3/uL (0.0-0.8) 04/08/25 18:54 [...] pH 6.5 (5.0-9.0) 04/08/25 19:50 Ur Specific [place] 1.006 (1.001-1.030) 04/08/25 19:50 Urine Protein 50 [...] <Electronically signed by Rajiv Trejo MD> 04/08/25 [id number] [facility] Work Phone: 1(699) 985-270607-22-2025 History and physical [place] [id number] Hospitalist H&P Signed Patient: Marleni Dennis MR#: [id number] : 1950 Acct:[id number] Age/Sex: 74 / F Adm Date: 5 Loc: 4P Room: [address] [place] [address] Type: ADM IN Attending Dr: Rajiv Trejo [...] anemia. Patient follows with her PCP in [place] and was referred to nephrology clinic for [...] negative unless noted below or in HPI [facility] Medical History Iron deficiency anemia Former [...] (From Pneumovax-23) Allergy (Verified 04/08/25 18:01) Edema Utfrohs-WUW-InV Reductase Inhibitor (Rofpyly-Zep-Jrh Reductase Inhibitor) Allergy (Verified 04/08/25 18:01) Unknown [...] % (Auto) 23.3 % (.) 04/08/25 18:54 [place] % (Auto) 10.0 % (.) 04/08/25 18:54 Eos % (Auto) 2.6 % (.) 04/08/25 18:54 Baso % (Auto) 1.0 % (.) 04/08/25 18:54 Nucleat RBC Rel Count 0.1 /100 WBC (0-0.5) 04/08/25 18:54 Neut # (Auto) 2.8 x10E3/uL (1.8-7.7) 04/08/25 18:54 Lymph # (Auto) 1.0 x10E3/uL (1.00-4.8) 04/08/25 18:54 [place] # (Auto) 0.4 x10E3/uL (0.0-0.8) 04/08/25 18:54 [...] pH 6.5 (5.0-9.0) 04/08/25 19:50 Ur Specific [place] 1.006 (1.001-1.030) 04/08/25 19:50 Urine Protein 50 [...] Trejo MD 04/08/2509 11 Signed By: 04/08/25 [id number] [facility]07-22-2025 Radiology Diagnostic study note [facility] [place] [address] [place] [address] CT Scan Report Signed Patient: Marleni Dennis MR#: [id number] : 1950 Acct:[id number] Age/Sex: 74 / F ADM Date: 5 Loc: ER Room: Type: [facility] ER Attending Dr: Copies to: Sohail Figueroa [...] Garnett M.D. 04/08/2025 8:27 PM Dictation Location: [place] [address] Transcribed By: [facility] 04/08/252026 Dictated By: Derek Garnett DO 04/08/252018 Signed By: 04/08/252026 [facility]07-22-2025 Evaluation note* Diagnosis Onset Date Resolution Status Admit Date TOMASA (acute kidney injury) acuteJuly 2024 3:58pmAnemiaacuteJuly 2024 3:58pmChronic kidney disease, stage IV (severe)acuteJuly 2024 3:58pmHypertensive nephropathy acuteJuly 2024 3:58pmProteinuriaacuteJuly 2024 3:58pmAcute kidney injury superimposed on CKDacuteJuly 2024 9:16pmAnemiaacuteJuly 2024 9:16pmFluid overloadacuteJuly 2024 9:16pmHypertensive emergencyacuteJuly 2024 9:16pmHypertensive nephropathyacuteJuly 2024 9:16pmLower GI bleedacuteJuly 2024 9:16pmMelenaacuteJuly 2024 9:16pm [facility] Work Phone: 1(219) 836-347907-22-2025 Evaluation note* Diagnosis Onset Date Resolution Status [...] 2024 9:16pmProteinuriaacuteJuly 2024 9:16pmWeakness generalizedacuteJuly 2024 9:16pm [facility] Work Phone: 1(522) 565-171607-18-2025 NoteSUBJECTIVE Reason for Visit: Marleni Dennis is [...] and hx of DVT/PE. 03/12/2025 admitted to [facility] (initially presented to [facility]) for hypertension emergency. Systolics were as high as 250, lab work revealed elevated troponin without immediate concern for extreme changes on EKG. CT head was negative for acute process. Placed on Cardene drip initially. Nephrology was also consulted due to the patient's worsening TOMASA. 04/04/2025 office visit: Patient seen evaluated in the office today, accompanied by her blflsaps-ei-ajh. She denies chest pain, shortness of breath, palpitations. She endorses worsening lower extremity edema. On exam she has +3 LE edema. States she has an appointment on Monday with her wood carving machine operator to decide on dialysis. 04/24/2024 office visit [...] elevated resistive index withi (more content not included)...[facility] 04-02-2025 History of Present illness Narrative* 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 NP - 04/02/2025 2:00 PM EDT Images from the original note were not included. Patient Demographics: Marleni Dennis Date of : 1950 Chief Complaint Patient presents with Hypertension swelling of lower extremities right flank pain HPI Pt is being seen today in her home due to difficulty in getting into the office. [facility] called into the office on 03/31/25 [...] for pain. Pt was recently hospitalized at [facility] for hypertensive crisis. Pt also had an acute kidney injury superimposed on her CKD, stage IV. On discharge from the hospital, Cr was 3.69 and GFR 12.3. A referral to nephrology was sent to Dr. Espinosa in [place] during her hospital follow up visit on [...] up scheduled with Dr Espinosa 04/08 in [place] [address]. She is working on obtaining transportation with [...] bilateral femoral stent FEMORAL ARTERY STENT Bilateral SC REMOVE TONSILS/ADENOIDS,12+ Y/O SPINE SURGERY fusion of [...] 2. Chronic kidney disease, stage 4 (severe) ([facility]) Follow up with nephrology 04/08 Admits to [...] for Next scheduled follow-up. documented in this [facility]07-08-2025 Telephone encounter Note* Telephone Encounter - GISSELLE Sigala - 03/25/2025 2:15 PM EDT Rx for ambien was sent yesterday. [facility] HealthcareQhplurfqah01-44-1576 Miscellaneous Notes* Telephone Encounter - GISSELLE Sigala - 03/25/2025 2:15 PM EDT Rx for ambien was sent yesterday. documented in this [facility]07-07-2025 History of Present illness Narrative* Jack Vogt MD - 03/24/2025 4:30 PM EDT Images from the original note were not included. HPI Follow-up Additional comments: Transferred to [facility] from [facility] 03/13/25 dx: HTN urgency,NSTEMI discharged home03/20/25 med changes made follow up with cardiology 04/02/25 and nephrology 05/06/25 discuss referral Additional comments: Pt would like a referral sent to nephrology in [place] she does not want to go to [facility] edited by Summer Feliciano LPN on 03/24/2025 4:51 PM. Subjective Patient ID: Marleni Dennis is a 74 y.o. female who presents for Follow-up ([facility]25 dx: HTN urgency,NSTEMI discharged home03/20/25 med changes made follow up with cardiology04/02/25 and nephrology 05/06/25) and discuss referral (Pt would like a referral sent to nephrology in [place] she does not want to go to [place]). Flowsheet Row Documentation from 03/24/2025 in [facility] with Aimee Go MA Hospital Information ED, Hospital or Nursing Home Facility Discharge? Hospital Patient has been contacted within two business days of discharge Yes Diagnosis Hypertension Discharge Date 03/20/25 Discharged To: Home Setting Discharge Hospital [facility] Engagement Call Start Time 1055 Admission [...] bilateral femoral stent FEMORAL ARTERY STENT Bilateral SC REMOVE TONSILS/ADENOIDS,12+ Y/O SPINE SURGERY fusion of [...] all orders for this visit: Atherosclerosis of [place] coronary artery of [place] heart with stable angina pectoris - The patient was seen today in follow up of recent hospital stay. All available hospital records were reviewed and discussed with the patient. Hospital discharge meds were reviewed. Any changes are as noted. Type 2 diabetes mellitus with stage 4 chronic kidney disease, without long-term current use of insulin ([facility]) - Ambulatory referral to Nephrology; Future Insomnia due to medical condition - zolpidem (Ambien) 5 MG tablet; Take 1 tablet (5 mg) by mouth as needed at bedtime for sleep Chronic kidney disease, stage 4 (severe) ([facility]) Primary osteoarthritis of both knees - traMADol (Ultram) 50 MG tablet; Take 1 tablet (50 mg) by mouth every 8 (eight) hours if needed for severe pain - PT home eval; Future Follow up in about 2 months (around 05/25/2025) for Routine F/U. documented in this encounterMissouri Southern HealthcareGpdarsdnod85-63-0235 NotePhysical Therapy Name: Marleni Dennis Date of : 1950 Today's Date: 03/20/25 Pt is unable to be seen for therapy at this time secondary to pt to discharge to home soon. Will check back and complete therapy session as appropriate if discharge does not occur.. Check No Charge Time attempted: [facility]07-03-2025 NoteNephrology Progress Note Patient : Marleni Dennis; 74 y.o. Location: [facility]/4108-01 Attending: Erickson Cabrera MD Admit Date: 03/13/2025 Hospital Day: 7 Reason for Consult: CKD IV with uncontrolled hypertension. Subjective: History of present illness: Marleni Dennis is a 74 y.o. female who was transferred from [facility] after presenting with weakness after a fall as well as uncontrolled hypertension. She has pertinent past medical history of hypertension secondary to renal artery stenosis, CKD IV, CAD s/p CABG and PCI with stent placement, obstructive sleep apnea. 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 She says she has a water pill [...] Dose Status apixaban (Eliquis) 2.5 mg tablet [id number] TAKE 1 TABLET BY MOUTH TWICE A DAY FOR 90 DAYS Historical ProviderMD Active aspirin 81 mg EC tablet [id number] Take 1 tablet every day by oral route. Historical ProviderMD Flag for Review buPROPion (Wellbutrin) 75 mg tablet [id number] Yes Take 75 mg by mouth twice a day. Historical ProviderMD Active carvedilol (Coreg) 12.5 mg tablet [id number] No Take 25 mg by mouth with breakfast and with evening meal. Patient not taking: Reported on 03/13/2025 Historical ProviderMD Not Taking Active DULoxetine (Cymbalta) [address] capsule [id number] Take 30 mg by mouth every other day. Weaning off of duloxetine (takes 60 mg daily AND 30 mg every other day_) Historical ProviderMD Active DULoxetine (Cymbalta) [address] capsule [id number] Take 1 tablet by mouth in the morning. Weaning off of duloxetine (takes 60 mg daily AND 30 mg every other day_) Historical ProviderMD Active ezetimibe (Zetia) 10 mg tablet [id number] Take 1 tablet by mouth in the morning. Historical ProviderMD Active fenofibrate (Tricor) 145 mg tablet 1703 (more content not included)...[facility]07-03-2025 NotePt has DC orders. Sent updates to [facility]. Will send AVS when available. Updated MD and pt's [place]. Sent AVS/DC orders to [facility]. They will be able to arrange start of care on Saturday 03/24. Updated pt.[facility]07-03-2025 Note Hospital Medicine Discharge Summary Final Discharge Diagnosis: Principal Problem: Hypertensive emergency Active Problems: Coronary artery disease without angina pectoris Uncontrolled hypertension Occlusion of carotid artery Depression Type 2 diabetes mellitus with other diabetic kidney complication ([facility]) Tobacco dependence Stage 4 chronic kidney disease ([facility]) Acute kidney injury superimposed on chronic kidney disease NSTEMI (non-ST elevated myocardial infarction) ([facility]) Abdominal bruit Other abnormalities of gait and mobility Severe protein-calorie malnutrition ([facility]) History of DVT (deep vein thrombosis) CAD s/p CABG Admission Diagnosis: HTN (hypertension) with goal to be determined [I10] Hospital course: 74-year-old female with the above history was admitted to [facility] on 03/13 due to hypertensive emergency. patient initially presented to [facility] after a fall and was found to have systolic blood pressure up to 250 and lab work revealed elevated troponin without immediate concerning ischemic changes on EKG. CT head was negative for acute process. She was transferred to [facility] for NSTEMI. Upon presentation cardiology was [...] Center 04/02/2025 3:00 PM John Luther CNP [facility] CARD IN [facility] 05/06/2025 8:30 AM Aydee Chao MD [facility] NEPHRO Comprehensiv 05/06/2025 8:45 AM Aydee Chao MD [facility] NEPHRO Comprehensiv Your medication list ASK [...] pneumovax-23 [pneumococcal 23-cruz ps vaccine], red dye, dsoweyb-bbp-bfn reductase inhibitors, and varenicline. Disposition: [facility] Discharge Condition: Stable Code Status: Full [...] fat with locations identified (more content not included)...[facility]07-03-2025 NoteThis report has been cancelled.[facility]07-02-2025 Note-TOMASA on CKD during admission, likely ATN -Cr upward trend, if improved tomorrow then discharge -Daily BMP -Defer fluids to Nephrology - Spoke with nephrology today and agree with doing urinalysis to consider alternative etiologies for the patient's renal dysfunctionUnSelect Medical Specialty Hospital [facility]07-02-2025 NotePhysical Therapy Physical Therapy Treatment Patient Name: [...] awake and alert, agreeable to participate. RN okays session. Activity Tolerance Endurance Stage II Activity Tolerance Comments Pt reports dizziness skilled nursing through ambulation limiting distances and activity tolerance. [...] at end of session. PT Assessment PT Assessment/LABORATORY COURIER Summary Pt continues to improve, however, limited by dizziness skilled nursing throughout ambulation distance this date. Pt also [...] will perform sit to (more content not included)...[facility]07-02-2025 NoteNephrology Progress Note Patient : Marleni Dennis; 74 y.o. Location: [facility]/4108-01 Attending: Erickson Cabrera MD Admit Date: 03/13/2025 Hospital Day: 6 Reason for Consult: CKD IV with uncontrolled hypertension. Subjective: History of present illness: Marleni Dennis is a 74 y.o. female who was transferred from [facility] after presenting with weakness after a fall as well as uncontrolled hypertension. She has pertinent past medical history of hypertension secondary to renal artery stenosis, CKD IV, CAD s/p CABG and PCI with stent placement, obstructive sleep apnea. 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 She says she has a water pill [...] Dose Status apixaban (Eliquis) 2.5 mg tablet [id number] TAKE 1 TABLET BY MOUTH TWICE A DAY FOR 90 DAYS Historical ProviderMD Active aspirin 81 mg EC tablet 871415 Take 1 tablet every day by oral route. Historical ProviderMD Flag for Review buPROPion (Wellbutrin) 75 mg tablet [id number] Yes Take 75 mg by mouth twice a day. Historical ProviderMD Active carvedilol (Coreg) 12.5 mg tablet [id number] No Take 25 mg by mouth with breakfast and with evening meal. Patient not taking: Reported on 03/13/2025 Historical ProviderMD Not Taking Active DULoxetine (Cymbalta) [address] capsule [id number] Take 30 mg by mouth every other day. Weaning off of duloxetine (takes 60 mg daily AND 30 mg every other day_) Historical ProviderMD Active DULoxetine (Cymbalta) [address] capsule 687501 Take 1 tablet by mouth in the morning. Weaning off of duloxetine (takes 60 mg daily AND 30 mg every other day_) Historical ProviderMD Active ezetimibe (Zetia) 10 mg tablet 417141 Take 1 tablet by mouth in the morning. Historical ProviderMD Active fenofibrate (Tricor) 145 mg tablet 268679 Take 1 tablet by mouth in the morning. Historical ProviderMD Active furosemide (Lasix) 40 mg tablet [id number] No if needed. (more content not included)...[facility]07-02-2025 Note-RD following, see belowUnSelect Medical Specialty [facility] [place]07-02-2025 Note-MCS SSIUnSelect Medical Specialty Hospital - [place]07-02-2025 Note-PT/OT following -[facility] [place]-NRT -Advised on cessationUnSelect Medical Specialty [facility] - [place]07-02-2025 Note-Continue LexaproUnSelect Medical Specialty Hospital - [place]07-02-2025 Note-Continue Zetia, fenofibrate, aspirinUnSelect Medical Specialty [facility] - [place]07-02-2025 Note-likely 2/2 medication non-adherence -US renal negative for stenosis -aldosterone, renin wnl -Required intermittent cardene -BP management per Nephrology, appreciate recsUniversity [facility]07-02-2025 Note-would benefit repeating duplex scan of the abdomen as an outpatientUnSelect Medical Specialty Hospital - [place]07-02-2025 Note-Prior episodes of DVT, on Eliquis. Physical exam showed evidence of LLE swelling. -b/l LE doppler negative for DVTUnSelect Medical Specialty Hospital - [place]07-02-2025 Note-Continue Zetia, aspirin -ultrasound showing <50% stenosis R ICA, 50-69% stenosis L ICA -Will need outpatient surveillanceUnSelect Medical Specialty [facility] - [place]07-02-2025 NoteHospital Medicine Daily Progress Note - 03/19/2025 8:02 AM; Room: [address] [place] [address] Admission: 03/13/2025 1:02 AM; Length of stay: 6 days THE HOSPITALIST TEAM PREFERS TO USE [employer] FOR NON-URGENT COMMUNICATION 7AM-7PM. IF I DO NOT RESPOND WITHIN 20 MINUTES OR URGENT MATTERS, PLEASE CALL THROUGH THE ENVIRONMENTAL COMPLIANCE ENGINEER. FROM 7PM-7AM, PLEASE PAGE [phone](COVR). Code Status: Full Code Barriers to Discharge: [...] Hypertensive emergency NSTEMI (non-ST elevated myocardial infarction) ([facility]) Acute kidney injury superimposed on chronic kidney disease -likely 2/2 medication non-adherence - renal negative for stenosis -aldosterone, renin wnl -Required intermittent cardene -BP management per Nephrology, appreciate recs Stage 4 chronic kidney disease ([facility]) -TOMASA on CKD during admission, likely ATN [...] diabetes mellitus with other diabetic kidney complication ([facility]) -[facility] SSI Tobacco dependence -NRT -Advised on cessation Other abnormalities of gait and mobility -PT/OT following -Plan for [facility] dispo Severe protein-calorie malnutrition ([facility]/HCC) -RD following, see below Nutrition Screen: [...] Academy of Nutrition and Dietetics and the [place] [employer] of Enteral and Parenteral Nutrition, meets [...] Results from last 7 (more content not included)...[facility]07-01-2025 NotePhysical Therapy Physical Therapy Treatment Patient [...] Clicks T-Score: 20 Assessment/Plan PT Assessment PT Assessment/LABORATORY COURIER Summary: pt amb 115ft RW with SBAof [...] (from Physical Therapy) Active Problems Problem: [place] [facility] [place] Date: 03/13/25 Goal Start Date Expected End Date End Date Patient will perform bed mobility from flat bed independently without use of bed rails. 03/13/25 04/12/25 -- Goal Star (more content not included)...[facility] 03-18-2025 NoteReceived [facility] [facility]. Updated pt. Anticipate Dc tomorrow per hospitalist note.[facility] 03-18-2025 NoteNephrology Progress Note Patient : Marleni Dennis; 74 y.o. Location: 4108/4108-01 Attending: Erickson Cabrera MD Admit Date: 03/13/2025 Hospital Day: 5 Reason for Consult: CKD IV with uncontrolled hypertension. Subjective: History of present illness: Marleni Dennis is a 74 y.o. female who was transferred from [facility] after presenting with weakness after a fall as well as uncontrolled hypertension. She has pertinent past medical history of hypertension secondary to renal artery stenosis, CKD IV, CAD s/p CABG and PCI with stent placement, obstructive sleep apnea. 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 She says she has a water pill [...] Dose Status apixaban (Eliquis) 2.5 mg tablet [id number] TAKE 1 TABLET BY MOUTH TWICE A DAY FOR 90 DAYS Historical Provider, Active aspirin 81 mg EC tablet [id number] Take 1 tablet every day by oral route. Historical ProviderMD Flag for Review buPROPion (Wellbutrin) 75 mg tablet [id number] Yes Take 75 mg by mouth twice a day. Historical ProviderMD Active carvedilol (Coreg) 12.5 mg tablet [id number] No Take 25 mg by mouth with breakfast and with evening meal. Patient not taking: Reported on 03/13/2025 Historical Provider, Not Taking Active DULoxetine (Cymbalta) [address] capsule [id number] Take 30 mg by mouth every other day. Weaning off of duloxetine (takes 60 mg daily AND 30 mg every other day_) Historical Provider, Active DULoxetine (Cymbalta) [address] capsule [id number] Take 1 tablet by mouth in the morning. Weaning off of duloxetine (takes 60 mg daily AND 30 mg every other day_) Historical Provider, Active ezetimibe (Zetia) 10 mg tablet [id number] Take 1 tablet by mouth in the morning. Historical Provider, Active fenofibrate (Tricor) 145 mg tablet [id number] (more content not included)... [facility]07-01-2025 NotePhysician Clarification Please review the following and provide your response below. Please specify the type of NSTEMI: --NSTEMI --OR Type 2, please document underlying cause --NSTEMI Ruled out --Demand ischemia (no NSTEMI) --Elevated troponins without NSTEMI --Other specified --Clinically unable to determine Additional Notes: Demand ischemia (no NSTEMI) This documentation will become part of the patient's medical record.[facility]07-01-2025 Note-TOMASA on CKD during admission, likely ATN -Cr upward trend, if improved tomorrow then discharge -Daily BMP -Defer fluids to NephrologyUnSelect Medical [facility] [place]07-01-2025 Note- Continue LexaproUnSelect Medical Specialty Hospital - [place]07-01-2025 Note-PT/OT following -[facility] dispoUnSelect Medical Specialty Hospital - [place]07-01-2025 Note-would benefit repeating duplex scan of the abdomen as an outpatientUnSelect Medical [facility] [place]07-01-2025 Note-NRT -Advised on cessationUnSelect Medical Special[facility] - [place]07-01-2025 Note-RD following, see belowUnSelect Medical Specialty Hospital - [place]07-01-2025 Note-[facility]07-01-2025 Note-likely 2/2 medication non-adherence -US renal negative for stenosis -aldosterone, renin wnl -Required intermittent cardene -BP management per Nephrology, appreciate recsUniversity of [facility]07-01-2025 Note-Prior episodes of DVT, on Eliquis. Physical exam showed evidence of LLE swelling. -b/l LE doppler negative for DVTMagruder Hospital07-01-2025 Note-Continue Zetia, aspirin -ultrasound showing <50% stenosis R ICA, 50-69% stenosis L ICA -Will need outpatient surveillanceUnSelect Medical Specialty [facility] - [place]07-01-2025 Note-Continue Zetia, fenofibrate, aspirinUnSelect Medical Specialty [facility] [place] 03-18-2025 NoteHospital Medicine Daily Progress Note - 03/18/2025 7:20 AM; Room: [address] [place] [address] Admission: 03/13/2025 1:02 AM; Length of stay: 5 days THE HOSPITALIST TEAM PREFERS TO USE [employer] FOR NON-URGENT COMMUNICATION 7AM-7PM. IF I DO NOT RESPOND WITHIN 20 MINUTES OR URGENT MATTERS, PLEASE CALL THROUGH THE ENVIRONMENTAL COMPLIANCE ENGINEER. FROM 7PM-7AM, PLEASE PAGE [phone](COVR). Code Status: Full Code Barriers to Discharge: [...] appreciate recs Stage 4 chronic kidney disease ([facility]/HCC) -TOMASA on CKD during admission, likely [...] diabetes mellitus with other diabetic kidney complication ([facility]) -[facility] Tobacco dependence -NRT -Advised on cessation Other abnormalities of gait and mobility -PT/OT following -Plan for [facility] dispo Severe protein-calorie malnutrition (CMS/HCC) -RD following, [...] Academy of Nutrition and Dietetics and the [place] Society of Enteral and Parenteral Nutrition, meets [...] 03/13/25 1748 03/13/25 073 (more content not included)...[facility]07-01-2025 NoteProblem: Safety - Adult Goal: Free from fall injury Outcome: Progressing The patient is Moderately Stable - Low risk of patient condition declining or worsening The patient's goals for the shift include comfort The clinical goals for the shift include VSS, safetyUnSelect Medical Specialty [facility] [place]06-30-2025 NotePhysical Therapy Name: Marleni Dennis Date of : 1950 Today's Date: 03/17/25 Oh no you can't work with me today. Session okay per RN, requests pt's BP be recorded prior to mobility. Pt supine in bed upon arrival, refuses PT this afternoon d/t being too tired. Is, however, agreeable to this lyric writer obtaining BP: 139/50 mmHg. RN aware. Check No Charge Time attempted: 1425 Giancarlo Calderón, PT, DPTUnSelect Medical Specialty Hospital - [place]06-30-2025 Note-TOMASA on CKD during admission, likely ATN -Cr upward trend -Daily BMP -Defer fluids to NephrologyMag[facility]06-30-2025 Note- likely 2/2 medication non-adherence -US renal negative for stenosis -aldosterone, renin wnl -Required intermittent cardene -BP management per Nephrology, appreciate recsUniversSheltering Arms Hospital06-30-2025 Note-likely 2/2 medication non-adherence -US renal negative for stenosis -aldosterone, renin wnl -Required intermittent cardene -BP management per Nephrology, appreciate recsUniverskettering health behavioral [facility]06-30-2025 NoteOccupational Therapy Occupational Therapy Treatment Patient Name: [...] 4 Eating meals? 4 Total Score OT [facility] 21 OT Goals: Multi-Disciplinary Problems (from Occupational Therapy) Active Problems Problem: Balance Start Date: 03/14/25 Goal Start Date Expected End Date End Date LTG - Patient will maintain stand balance to (more content not included)... [facility]06-30-2025 Note-Continue LexaproUnSelect Medical Specialty Hospital [facility] [place]06-30-2025 Note-Continue Zetia, aspirin -ultrasound showing <50% stenosis R ICA, 50-69% stenosis L ICA -Will need outpatient surveillanceUnSelect Medical Specialty [facility] - [place]06-30-2025 Note-NRT -Advised on cessationUnSelect Medical Specialty [facility] - [place]06-30-2025 Note-[facility]06-30-2025 Note-RD following, see below [facility]06-30-2025 Note-PT/OT following -[facility] for [facility] dispoUnSelect Medical Specialty [facility] - [place]06-30-2025 Note-would benefit repeating duplex scan of the abdomen as an outpatientUnSelect Medical Specialty Hospital - [place]06-30-2025 Note-Prior episodes of DVT, on Eliquis. Physical exam showed evidence of LLE swelling. -b/l LE doppler negative for DVTUnSelect Medical Specialty Hospital - [place]06-30-2025 Note-Continue Zetia, fenofibrate, aspirinUnSelect Medical Specialty [facility] [place] 03-17-2025 NoteHospital Medicine Daily Progress Note - 03/17/2025 8:33 AM; Room: [address] [place] [address] Admission: 03/13/2025 1:02 AM; Length of stay: 4 days THE HOSPITALIST TEAM PREFERS TO USE [employer] CHAT FOR NON-URGENT COMMUNICATION 7AM-7PM. IF I DO NOT RESPOND WITHIN 20 MINUTES OR URGENT MATTERS, PLEASE CALL THROUGH THE ENVIRONMENTAL COMPLIANCE ENGINEER. FROM 7PM-7AM, PLEASE PAGE [phone](COVR). Code Status: Full Code Barriers to Discharge: [...] Hypertensive emergency NSTEMI (non-ST elevated myocardial infarction) ([facility]) Acute kidney injury superimposed on chronic kidney disease -likely 2/2 medication non-adherence - renal negative for stenosis -aldosterone, renin wnl -Required intermittent cardene -BP management per Nephrology, appreciate recs Stage 4 chronic kidney disease ([facility]) -TOMASA on CKD during admission, likely ATN [...] diabetes mellitus with other diabetic kidney complication ([facility]) -[facility] SSI Tobacco dependence -NRT -Advised on cessation Other abnormalities of gait and mobility -PT/OT following -Plan for [facility] dispo Severe protein-calorie malnutrition ([facility]/HCC) -RD following, see below Nutrition Screen: [...] Academy of Nutrition and Dietetics and the [place] Society of Enteral and Parenteral Nutrition, meets [...] 03/13/25 0738 SODIUM mmol (more content not included)...[facility] 03-17-2025 NoteNephrology Progress Note Patient : Marleni Dennis; 74 y.o. Location: [facility]8/4108-01 Attending: Erickson Cabrera MD Admit Date: 03/13/2025 Hospital Day: 4 Reason for Consult: CKD IV with uncontrolled hypertension. Subjective: History of present illness: Marleni Dennis is a 74 y.o. female who was transferred from [facility] after presenting with weakness after a fall as well as uncontrolled hypertension. She has pertinent past medical history of hypertension secondary to renal artery stenosis, CKD IV, CAD s/p CABG and PCI with stent placement, obstructive sleep apnea. 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 She says she has a water pill [...] Dose Status apixaban (Eliquis) 2.5 mg tablet [id number] TAKE 1 TABLET BY MOUTH TWICE A DAY FOR 90 DAYS Historical ProviderMD Active aspirin 81 mg EC tablet [id number] Take 1 tablet every day by oral route. Historical ProviderMD Flag for Review buPROPion (Wellbutrin) 75 mg tablet [id number] Yes Take 75 mg by mouth twice a day. Historical ProviderMD Active carvedilol (Coreg) 12.5 mg tablet [id number] No Take 25 mg by mouth with breakfast and with evening meal. Patient not taking: Reported on 03/13/2025 Historical ProviderMD Not Taking Active DULoxetine (Cymbalta) [address] capsule [id number] Take 30 mg by mouth every other day. Weaning off of duloxetine (takes 60 mg daily AND 30 mg every other day_) Historical ProviderMD Active DULoxetine (Cymbalta) [address] capsule [id number] Take 1 tablet by mouth in the morning. Weaning off of duloxetine (takes 60 mg daily AND 30 mg every other day_) Historical ProviderMD Active ezetimibe (Zetia) 10 mg tablet [id number] Take (more content not included)... [facility]06-29-2025 Note Attestation signed by Sharee Mckeon [...] Faculty, Division of Nephrology, Department of Medicine, [facility] Sciences. Nephrology Progress Note Patient : Marleni Dennis; 74 y.o. Location: [facility]8/4108-01 Attending: Erickson Cabrera MD Admit Date: 03/13/2025 Hospital Day: 3 Reason for Consult: CKD IV with uncontrolled hypertension. Subjective: History of present illness: Marleni Dennis is a 74 y.o. female who was transferred from [facility] after presenting with weakness after a fall as well as uncontrolled hypertension. She has pertinent past medical history of hypertension secondary to renal artery stenosis, CKD IV, CAD s/p CABG and PCI with stent placement, obstructive sleep apnea. 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 She says she has a water pill [...] Dose Status apixaban (Eliquis) 2.5 mg tablet [id number] TAKE 1 TABLET BY MOUTH TWICE A DAY FOR 90 DAYS Historical Provider, Active aspirin 81 mg EC tablet [id number] Take 1 tablet (more content not included)... [facility]06-29-2025 Note-likely 2/2 medication non-adherence -US renal negative for stenosis -pending aldosterone, renin -Required intermittent cardene -Continue Coreg 25, hydralazine 100 TID, nifedipine 60 BID -Due to consulting services changes orders without communication to primary, will defer all BP management to Nephrology to avoid inevitable complications from multiple prescribers.[facility]06-29-2025 Note-TOMASA on CKD during admission, likely ATN -Cr mild increased today -Daily BMP -Defer fluids to NephrologyUnSelect Medical [facility] [place]06-29-2025 Note- [facility] SSIUnSelect Medical Specialty [facility] - [place]06-29-2025 Note-Continue Zetia, aspirin -ultrasound showing <50% stenosis R ICA, 50-69% stenosis L ICA -Will need outpatient surveillanceUnSelect Medical [facility] [place]06-29-2025 Note-RD following, see belowUnSelect Medical Specialty Hospital - [place]06-29-2025 Note- PT/OT following -Plan for HHC dispoUnSelect Medical Specialty Hospital [facility] [place]06-29-2025 Note-NRT -Advised on cessationUnSelect Medical [facility] [place]06-29-2025 Note-would benefit repeating duplex scan of the abdomen as an outpatientUnSelect Medical [facility]ty [facility] [place]06-29-2025 Note-Prior episodes of DVT, on Eliquis. Physical exam showed evidence of LLE swelling. -b/l LE doppler negative for DVTUnSelect Medical Specialty Hospital - [place]06-29-2025 Note-Continue LexaproUnSelect Medical Specialty Hospital - [place]06-29-2025 Note-Continue Zetia, fenofibrate, aspirinUnSelect Medical Specialty Hospital - [place]06-29-2025 Note Hospital Medicine Daily Progress Note - 03/16/2025 7:20 AM; Room: [address] [place] [address] Admission: 03/13/2025 1:02 AM; Length of stay: 3 days THE HOSPITALIST TEAM PREFERS TO USE [employer] FOR NON-URGENT COMMUNICATION 7AM-7PM. IF I DO NOT RESPOND WITHIN 20 MINUTES OR URGENT MATTERS, PLEASE CALL THROUGH THE ENVIRONMENTAL COMPLIANCE ENGINEER. FROM 7PM-7AM, PLEASE PAGE [phone](COVR). Code Status: Full Code Barriers to Discharge: [...] multiple prescribers. Stage 4 chronic kidney disease ([facility]) -TOMASA on CKD during admission, likely [...] diabetes mellitus with other diabetic kidney complication ([facility]) -[facility] Tobacco dependence -NRT -Advised on cessation Other abnormalities of gait and mobility -PT/OT following -Plan for [facility] dispo Severe protein-calorie malnutrition (CMS/HCC) -RD following, [...] Academy of Nutrition and Dietetics and the [place] Society of Enteral and Parenteral Nutrition, meets [...] Units 03/16/25 0500 03/15/25 (more content not included)...[facility]06-28-2025 Note -likely 2/2 medication non-adherence - renal negative for stenosis -pending aldosterone, renin -Required intermittent cardene -Continue Coreg 25, hydralazine 100 TID, nifedipine 30 BID -Avoid relative hypotension and rapid changes to medications prior to steady state in order to avoid such labile BPUnSelect Medical Specialty Hospital - [place] 03-15-2025 Note-would benefit repeating duplex scan of the abdomen as an outpatientUnSelect Medical [facility]ty [facility] [place]06-28-2025 Note-PT/OT following -Plan for [facility] dispoUnSelect Medical Specialty [facility] - [place]06-28-2025 Note-Prior episodes of DVT, on Eliquis. Physical exam showed evidence of LLE swelling. -b/l LE doppler negative for DVTUnSelect Medical Specialty Hospital - [place]06-28-2025 Note-TOMASA on CKD during admission, likely ATN -Cr plateau today, hold fluids and monitor daily BMP -If improved tomorrow and BP stable then dischargeUnSelect Medical Specialty Hospital - [place]06-28-2025 Note-Continue Zetia, fenofibrate, aspirinUnSelect Medical Specialty Hospital - [place]06-28-2025 Note-Continue Zetia, aspirin -ultrasound showing <50% stenosis R ICA, 50-69% stenosis L ICA -Will need outpatient surveillanceUnSelect Medical Specialty [facility] [place]06-28-2025 Note-NRT -Advised on cessationUnSelect Medical [facility] [place]06-28-2025 Note-Continue LexaproUnSelect Medical Specialty Hospital - [place]06-28-2025 Note-[facility] SSIMag[facility] Hospital06-28-2025 Note-RD following, see belowMagr[facility] Hospital06-28-2025 Note Attestation signed by Sharee Mckeon [...] Faculty, Division of Nephrology, Department of Medicine, [facility]. Nephrology Progress Note Patient : Marleni Dennis; 74 y.o. Location: 4108/4108-01 Attending: Erickson Cabrera MD Admit Date: 03/13/2025 Hospital Day: 2 Reason for Consult: CKD IV with uncontrolled hypertension. Subjective: History of present illness: Marleni Dennis is a 74 y.o. female who was transferred from [facility] after presenting with weakness after a fall as well as uncontrolled hypertension. She has pertinent past medical history of hypertension secondary to renal artery stenosis, CKD IV, CAD s/p CABG and PCI with stent placement, obstructive sleep apnea. 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 She says she has a water pill [...] RN (Registered Nurse) (more content not included)... [facility]06-28-2025 NoteHospital Medicine Daily Progress Note - 03/15/2025 7:32 AM; Room: [address] [place] [address] Admission: 03/13/2025 1:02 AM; Length of stay: 2 days THE HOSPITALIST TEAM PREFERS TO USE [employer] FOR NON-URGENT COMMUNICATION 7AM-7PM. IF I DO NOT RESPOND WITHIN 20 MINUTES OR URGENT MATTERS, PLEASE CALL THROUGH THE ENVIRONMENTAL COMPLIANCE ENGINEER. FROM 7PM-7AM, PLEASE PAGE [phone](COVR). Code Status: Full Code Barriers to Discharge: [...] Hypertensive emergency NSTEMI (non-ST elevated myocardial infarction) ([facility]) Acute kidney injury superimposed on chronic kidney [...] outpatient surveillance Stage 4 chronic kidney disease (CMS/HCC) -TOMASA [...] mellitus with other diabetic kidney complication (CMS/HCC) -[facility] SSI Tobacco dependence -NRT -Advised on cessation Other abnormalities of gait and mobility -PT/OT following -Plan for [facility] dispo Severe protein-calorie malnutrition (CMS/HCC) -RD following, [...] Academy of Nutrition and Dietetics and the [place] Society of Enteral and Parenteral Nutrition, meets [...] NIFEdipine XL, 30 mg (more content not included)...[facility]06-27-2025 NoteNephrology Progress Note Patient : Marleni Dennis; 74 y.o. Location: 4108/4108-01 Attending: Erickson Cabrera MD Admit Date: 03/13/2025 Hospital Day: 1 Reason for Consult: CKD IV with uncontrolled hypertension. Subjective: History of present illness: Marleni Dennis is a 74 y.o. female who was transferred from [facility] after presenting with weakness after a fall as well as uncontrolled hypertension. She has pertinent past medical history of hypertension secondary to renal artery stenosis, CKD IV, CAD s/p CABG and PCI with stent placement, obstructive sleep apnea. 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 She says she has a water pill [...] Dose Status apixaban (Eliquis) 2.5 mg tablet [id number] TAKE 1 TABLET BY MOUTH TWICE A DAY FOR 90 DAYS Historical ProviderMD Active aspirin 81 mg EC tablet [id number] Take 1 tablet every day by oral route. Historical ProviderMD Flag for Review buPROPion (Wellbutrin) 75 mg tablet [id number] Yes Take 75 mg by mouth twice a day. Historical ProviderMD Active carvedilol (Coreg) 12.5 mg tablet [id number] No Take 25 mg by mouth with breakfast and with evening meal. Patient not taking: Reported on 03/13/2025 Historical ProviderMD Not Taking Active DULoxetine (Cymbalta) [address] capsule [id number] Take 30 mg by mouth every other day. Weaning off of duloxetine (takes 60 mg daily AND 30 mg every other day_) Historical ProviderMD Active DULoxetine (Cymbalta) [address] capsule [id number] Take 1 tablet by mouth in the morning. Weaning off of duloxetine (takes 60 mg daily AND 30 m (more content not included)...[facility]06-27-2025 Note- Prior episodes of DVT, on Eliquis. Physical exam showed evidence of LLE swelling. - Will order LLE doppler for further evaluation.[facility]06-27-2025 NoteMay benefit repeating duplex scan of the abdomen as an outpatientUnSelect [facility] Special[facility] [place]06-27-2025 NoteAs aboveUnSelect Medical Specialty [facility] [place]06-27-2025 Note- Nephrology consult blood pressure controlled aim for good glycemic control avoid nephrotoxic meds will discontinue NSAIDs which she is taking as well as ARB - Kidney function declining, likely secondary to hypertensive emergency on admission. Cr = 3.12, BUN 46, GFR 15. Continue monitoring levels and volume status. Continued LR infusion.[facility]06-27-2025 Note - history of severe unintentional weight loss due to decreased PO intake. - Today, patient found to have improved PO intake. Continue monitoringUnSelect Medical Specialty [facility] [place]06-27-2025 Note- Nicotine replacement counseling, discussed with patient about having coronary disease peripheral arterial disease which can worsen with tobacco useUnSelect Medical Specialty Hospital [facility] [place]06-27-2025 Note- Blood sugar check dietUnSelect Medical Specialty Hospital - [facility] [place]06-27-2025 Note- With issues with hypertension discontinue Wellbutrin she scored 4 on depression scale we will add LexaproUnSelect Medical Specialty Hospital [facility] [place] 03-14-2025 Note- Continue Zetia, aspirin - Ultrasound Carotid artery showed bilateral stenosis >50%[facility]- Cardiology recommend Zetia and fibrate on aspirin [facility]06-27-2025 Note- Suspect secondary hypertension most likely due to renal artery stenosis. Continues to be hypertensive today however, she is asymptomatic. - Renal ultrasound done showed left side stenosis with a diameter of < 9 cm. Right side unremarkable. - Pending aldosterone/renin levels. - Cardiology discontinued Nicardipine drip and recommend continuation of Coreg and Hydralazine.[facility]06-27-2025 NoteFall event PT OT to see patient fall precautionsUnSelect Medical Specialty [facility] [place]06-27-2025 NoteCase was discussed with the Medical Student [...] Progress Note - 03/14/2025 11:33 AM; [facility] Admission: 03/13/2025 1:02 AM; Length of stay: 1 days THE HOSPITALIST TEAM PREFERS TO USE [employer] FOR NON-URGENT COMMUNICATION 7AM-7PM. IF I DO NOT RESPOND WITHIN 20 MINUTES OR URGENT MATTERS, PLEASE CALL THROUGH THE ENVIRONMENTAL COMPLIANCE ENGINEER. FROM 7PM-7AM, PLEASE PAGE [phone](COVR). Code Status: Full Code Barriers to Discharge: [...] stenosis >50% Stage 4 chronic kidney disease (CMS/HCC) - Nephrology consult blood pressure controlled aim [...] further evaluation. NSTEMI (non-ST elevated myocardial infarction) ([facility]/HCC) As above Severe protein-calorie malnutrition ([facility]) - history of severe unintentional weight loss [...] diabetes mellitus with other diabetic kidney complication ([facility]) - Blood sugar check diet Tobacco dependence - Nicotine replacement counseling, discussed with patient about having coronary disease peripheral arterial disease which can worsen with tobacco use Nutrition Screen (more content not included)...[facility]06-27-2025 NoteOccupational Therapy Occupational Therapy Evaluation Patient Name: Marleni Dennis : 1950 Today's Date: 03/14/2025 Time In: 931 Time Out: 949 Marleni Dennis is an 74 y.o. female admitted from [facility] as a direct transfer where [...] Walker rolling, Rollator, Emergency Alert (sc, gb, [facility] rts) Home Layout: Able to live on main level with bedroom/bathroom, Full bath main level Home Access: Stairs to enter with rails (3) Bathroom Shower/Tub: Walk-in shower Prior Level of Function Prior Function Level of [place]: Independent with ADLs and functional transfers, Independent [...] Eating meals?: None (Independent) Total Score OT [facility]: 21 Assessment/Plan OT Assessment OT Impairments: Decreased [...] [1] Patient Active Prob (more content not included)...[facility]06-27-2025 NotePhysical Therapy Physical Therapy Treatment Patient [...] Clicks T-Score: 18 Assessment/Plan PT Assessment PT Assessment/LABORATORY COURIER Summary: The patient requires skilled PT interventiondue [...] chair with chair alarm (more content not included)...[facility]06-26-2025 Note03/13/25 1707 Admission Assessment Questions Verify [...] Not Interested Does the patient have a leather case finisher assigned to them through their insurance? No [...] and recent fall at home; PT=not able, OT=HHC.[facility]06-26-2025 Note Physical Therapy Physical Therapy Evaluation [...] Summary: 72 y/o female s/p transfer from [facility] after presenting following fall and uncontrolled [...] Level of Function Prior Function Level of [place]: Independent with ADLs and functional transfers Prior Functional Mobility: Independent with rolling walker, Independent with rollator Homemaking Assistance: Needs assistance Driving: Total (family assists) Prior Function Comments: Patient uses RW in the home, rollator outside the home. She reports poor motivation to engage in housekeeping or leisure tasks for several years now. Reports this started during Cov, but has recently worsened. She reports currently [...] chair): A little H (more content not included)...[facility]06-26-2025 NoteThis report has been cancelled.[facility]06-26-2025 NoteThis report has been cancelled.[facility] 03-13-2025 NoteAdult Nutrition Assessment: Name: Marleni [...] is helping On Zofran Appetite: Was poor LABORATORY COURIER, 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 Cognition: A&O x4 [...] ideal body weight (50 kg) Calorie needs: 2121-7348 kcals/day based on Equation: 25-30 kcal/kg Protein [...] Severe PCM: Acute Illnes (more content not included)...[facility]06-26-2025 NotePhysical Therapy--Cancellation 72 y/o female s/p transfer from [facility] after presenting following fall and uncontrolled HTN. PMH: HTN, renal artery stenosis, DVT/PE, CKD4, CAD s/p CABG, PVD s/t B common iliac stenting, LEE, depression, occluded carotid artery Current Dx: NSTEMI Patient off [facility] at [facility]. Will return to attempt eval. Kari Figueroa PT, MPT [facility] Acute RehabilitationUnSelect Medical Special[facility] [place] 03-13-2025 NoteSuspect secondary hypertension most likely due to renal artery stenosis continue nitrates add Coreg we will have cardiology see patient as well as nephrology. Discussed with patient but tobacco abstinence low-salt low-fat dietUnSelect Medical Specialty Hospital [facility] [place]06-26-2025 NoteMay benefit repeating duplex scan of the abdomen as an outpatientUnSelect Medical [facility] [place]06-26-2025 NoteFall event PT OT to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
--- OUTSIDE RECORDS SUMMARY | 2025-07-09 20:13 | XMS_ITS | Encounter Summary ---
Author Organization [facility] Address [address] [place] [address] Care Team Providers Care Overhead Garage Door Hanger Name Role Phone Jack Vogt MD Primary Care Provider [phone] Chantelle Recio PLATINUM AND PALLADIUM KETTLE TENDER Unavailable [phone] Valerie Go RN Unavailable [phone] Encounter Details DateTypeDepartmentCare Team (Latest Contact Info)Bwsyjwsrbui58/21/2025Telephone [facility] [place] [facility] [address] [facility] [address] [place] [address] Jack Vogt MD [address] [facility] [address] [place], [place] [address] Social History Tobacco UseTypesPacks/DayYears UsedDateSmoking Tobacco: NeverSmokeless Tobacco: NeverAlcohol UseStandard Drinks/WeekCommentsDefer0 (1 standard drink = 0.6 oz pure alcohol)caffeine yes type:coffeePHQ-2AnswerDate RecordedPatient Health Questionnaire-2 Etaus593CommentsUnknownSex and Gender InformationValueDate RecordedSex Assigned at BirthNot on fileLegal SexFemale 11/30/2022 6:57 PM EDTGender IdentityNot on fileSexual OrientationNot on file documented as of this encounter Miscellaneous Notes * Telephone Encounter - Jaki Barnett MA - 07/09/2025 10:40 AM EDT Faxed over dx list to number given * Telephone Encounter - Brianne Portillo - 07/09/2025 9:54 AM EDT [facility] by [facility] called back stating that they need a list of the patients diagnoses signed and dated by Sin and faxed to [phone]. She said they have the visit by brannon mckeon on 06/27 but it does not have all of her diagnoses on it and they need that for a face to face. * Telephone Encounter - CARO JOHNS - 07/08/2025 2:12 PM EDT Twyla from [facility] called and has some concerns with the [...] MemberRelationshipSpecialtyStart DateEnd Date Jack Vogt MD [address] [place] [address] PCP - GeneralInternal Medicine01/24/23 Chantelle Recio LSW [address] [place] [address] Social WorkerFamily Medicine06/10/25 Valerie Go, DEBORA [address] [place] [address] Registered NurseFamily Jblkjmqz87/13/25documented as of this encounter
--- OUTSIDE RECORDS SUMMARY | 2025-07-09 20:13 | XMS_ITS | Encounter Summary ---
Author Organization [facility] Address [address] [place] [address] Care Team Providers Care Real Estate Agency Principal Name Role Phone Jack Vogt MD Primary Care Provider [phone] Chantelle Recio FILING MACHINE OPERATOR Unavailable [phone] Valerie oG RN Unavailable [phone] Encounter Details DateTypeDepartmentCare Team (Latest Contact Info)Avenstcpwzx25/22/2025bstract [facility] [place] [facility] [address] [facility] [address] [place] [address] Jack Vogt MD [address] [facility] [address] [place], [place] [address] Social History Tobacco UseTypesPacks/DayYears UsedDateSmoking Tobacco: FormerCigarettes Smokeless Tobacco: NeverAlcohol UseStandard Drinks/WeekCommentsDefer0 (1 standard drink = 0.6 oz pure alcohol)caffeine yes type:coffeePHQ-2AnswerDate RecordedPatient Health Questionnaire-2 Xlkcp044CommentsUnknown Sex and Gender InformationValueDate RecordedSex Assigned at BirthNot on file Legal AinJpubtw47/15/2023 6:57 PM EDTGender IdentityNot on fileSexual OrientationNot [...] MemberRelationshipSpecialtyStart DateEnd Date Jack Vogt MD [address] [facility] [address] [place] [address] PCP - GeneralInternal Medicine01/24/23 Chantelle Recio, HIEU [address] [place] [address] Social WorkerFamily Medicine06/10/25 Valerie Go, DEBORA [address] [facility] [address] [place] [address] Registered NurseFamily Yxgfhjzo54/13/25documented as of this encounter
--- OUTSIDE RECORDS SUMMARY | 2025-07-09 20:13 | XMS_ITS | Clinical Summary ---
Author Organization [facility] Address [address] [place] [address] Care Team Providers Care Graphic Design Manager Name Role Phone Jack Vogt MD Primary Care Provider [phone] Allergies Active AllergyReactionsCriticalityNoted NhsxTjrqtwxnCmlhmv89/17/2022NickelMedium 06/04/2018 Other reaction(s): Dermatitis skin irritation and itching with jewelry worn Pneumococcal 23-Dianne Ps Xkfcfvk8905/06/2021 Other reaction(s): Swelling, Redness Red Dye05/04/2022hellfish SzsouagApexrszqdzlBaba87/17/4211Bxqnzjp-Jpc-Glt Reductase Xqloycyqov00/19/2021 Other reaction(s): Myalgias, Myalgias (Muscle Pain) Thyswrgbpcg28/19/2021 Other reaction(s): Vomiting Medications MedicationSigDispense QuantityRefillsLast FilledStart [...] 24 hr tablet Indications:Coronary artery disease involving [place] coronary artery of [place] heart without angina pectorisTake 1 tablet (30 [...] of the abdomen as an outpatient Hypertensive myexomqhd32/26/2025 Assessment & Plan (03/19/2025 8:02 AM EDT): [...] low-fat diet Other abnormalities of gait and ighbhtvi87/26/2025 Assessment & Plan (03/19/2025 8:02 AM EDT): [...] to see patient fall precautions Severe protein-calorie tjtfakkgyfrp64/26/2025 Assessment & Plan (03/19/2025 8:02 AM EDT): [...] Acute kidney injury superimposed on chronic kidney bxfsbuz1504/24/2024 Assessment & Plan (03/19/2025 8:02 AM EDT): [...] in order to avoid such labile BP Uvclhp3504/24/2024Left knee pain04/24/2024Lower GI bleed04/24/2024Lymphedema 04/24/2024oor dental gkirxog0404/24/2024Urge qizpjgbtwyzr80/07/2024Weakness elezdqpurxz51/07/2024Localized edema10/04/2023Stage 3b chronic kidney disease 10/04/2023Stage 4 chronic kidney ejnwxnx4707/21/2023 Assessment & Plan (03/19/2025 4:17 PM EDT): [...] taking as well as ARB Allergy to xjdwscx25Irritable bowel tcvlsyqp86/18/2023 07/21/20234706Epkswhh21ostsurgical percutaneous transluminal coronary angioplasty fkcbkg22rimary osteoarthritis of both kneesulmonary embolism with pximyacrsk07 Statin eqakuprmgsd43Type 2 diabetes mellitus with other diabetic kidney oatceshltehu58 Assessment & Plan (03/19/2025 8:02 AM EDT): [...] EDT): ) Blood sugar check diet Tobacco zxlgibpern45/18/202311/11/2022 Assessment & Plan (03/19/2025 8:02 AM EDT): [...] disease which can worsen with tobacco use Cghxdowoqcxnda58/19/0624Wgjrpzvgzqar44/19/2023Cardiovascular stress test uiucdfpd79/17/2022Carotid artery ecxjhlbl33/17/2022Chest pain2Coronary artery disease without angina cfhatyho26/17/2022 Overview (01/04/2023): S/p CABG and stenting - [...] exercise as tolerated and continue all medications. Awffmudyjlcpu58/17/2022oronary atherosclerosis of autologous vein bypass graft 05/04/2022 Assessment & Plan (01/04/2023 3:34 PM EDT): stable Coronary stent caexjz5405/04/2022ulmonary gpgpovi2205/04/2022Hyperlipidemia 05/04/2022 Assessment & Plan (01/04/2023 3:36 PM EDT): Lipid fairly stable with tricor and zetia Pt intolerant of statin, and PCSK9 inhibitor was not affordable Uncontrolled uihlpkeofyfq51/17/2022 Assessment & Plan (01/04/2023 3:35 PM EDT): Hypertension is well controlled 138/74 continue all medications Trrccezyphflte67/17/2022VD (peripheral vascular disease)05/04/2022History of pulmonary thagznld08/30/nemia due to chronic blood loss05/03/2021 Sinus nuiyopzqrg66/16/2021History of thromboembolism of vein03/31/2021Thyroid iucole8806/17/20207451Xtxlnabds57/13/2020History of coronary artery bypass surgery 3Diabetic renal nalvzox1510/24/20195495Drplhhqepqy12/06/2020Age related ixjoifqztvfx14/04/2020Decreased estrogen level10/09/2019Allergy to statin kmxhvywovt40/20/2020Dissection of abdominal aorta05/29/2019Degenerative lumbar spinal bievyauy10/12/2019Generalized abdominal pain04/29/2019Insomnia 04/29/2019Nausea and lacqxpls03/12/1117Rsexkos88/12/2019Peripheral venous toqlkfymlztpa12/12/2019Current nicotine useLeft foot drop 10/12/2018Lumbar necbsiwafyzlq27/25/2019Lumbosacral spondylosis without ttdgzgvukm95/25/2019Spondylolisthesis of lumbar vtcjhk6806/04/2018Neurogenic ezphnjrrqsuz61/21/2018Daytime bfargcnobp18/13/2017Celiac artery compression /12/2017Fibrocystic breast xlufguj3106/22/20160905Ktsnxmrzsxpb60/24/2016 Atherosclerosis of coronary artery without angina njkuqggz41/15/2016Benign essential cmywknhwiala83/15/2016Occlusion of carotid flecoy4510/02/2015 Assessment & Plan (03/19/2025 8:02 AM EDT): [...] stenosis- no neurological events or concerns noted. Rmnvjcgktp80/15/2016 Assessment & Plan (03/19/2025 8:02 AM EDT): [...] scale we will add Lexapro Gastroesophageal reflux tntagqj8410/02/2015 Immunizations ImmunizationAdministration DatesNext DueCovid (Pfizer) Bivalent Booster =>12 YRS 07/04/2022Influenza, High-dose Seasonal, Quadrivalent, Preservative Free 06/24/2021Influenza, Seasonal, Quadrivalent, Minsgoglcq85/17/2022,07/08/2020 Pfizer SARS-CoV-2 Xnmlmavgngb65/07/2021,11/17/2020,1Pneumococcal Polysaccharide RWO476804/01/2015 Family History Medical HistoryRelationNameCommentsCoronary artery diseaseFatherCoronary artery diseaseMotherStrokeMotherOvarian cancerSisterRelationNameStatusCommentsFather MotherSister Social History Tobacco UseTypesPacks/DayYears UsedDateSmoking Tobacco: Every DayCigarettes Passive Smoke Exposure: PastSmokeless Tobacco: Never Tobacco Cessation:Ready to Q uit: Not Asked; Counseling Given: Not Answered Comments:Uses Vuse vape. Nicotine content is 2.4. Alcohol UseStandard Drinks/WeekCommentsNot Currently0 (1 standard drink = 0.6 oz pure alcohol)OCCASIONALAHC UtilitiesAnswerDate RecordedIn the past 12 months has the [employer], gas, oil, or water [employer] threatened to shut off services in your [...] were you homeless or living in a senior care (including now)?No03/13/2025Hunger Vital SignAnswerDate RecordedWithin the past 12 months, you worried that your food would run out before you got the money to buymore.Never true03/13/2025Ran Out of Food in the Last YearNot on file 03/13/2025CommentsUnknownSex and Gender InformationValueDate RecordedSex Assigned at HrkztLxxmpy02/26/2025 12:43 PM EDTLegal GznLfewmc40/29/2022 10:16 PM EDTGender MzlnkvrbVubbfp27/26/2025 12:43 PM EDTSexual OrientationHeterosexual or Wfxvpcgd40/26/2025 12:43 PM EDT Last Filed Vital Signs Vital SignReadingTime TakenCommentsBlood Bdnhmeyt821/7507 2:13 PM EDT Fpcfs8240 2:13 PM BKLGifcwfsivfz12.6 ??C (97.9 ??F)03/20/2025 12:00 PM EDTRespiratory Cttf536503/20/2025 12:00 PM EDTOxygen Puqjllknia92%04/04/2025 2:13 PM EDTInhaled Oxygen Concentration--Sjlxhm31.2 kg (135 lb)04/04/2025 2:13 PM EDT Qkktrc752.5 cm (5' 2 )04/04/2025 2:13 PM EDTBody Mass Index24.6907 2:13 PM EDT Plan of Treatment DateTypeDepartmentCare Team (Latest Contact Info)Leftoysifdz58/05/2025 3:45 PM ESTOffice Visit [facility] [address] [place] [address] Cristopher Aguilera MD [address] [facility] [place] [address] Health MaintenanceDue DateLast DoneCommentsCT Xnkdtbtfgvzu17/20/1950Diabetes: Hemoglobin A1C1949FIT-DNA1949FIT1949FOBT1949Medicare Annual Wellness (AWV)1950 9208Uajondyvfmfyx26/20/1950Diabetes: Retinopathy Hagyfphrq82/20/1960Depression Ebxcdxine27/20/1962Adult Yywypqd3211/07/1971Zoster Vaccines (1 of 2)1999Pneumococcal Vaccine: 50+ Years (2 of 2 - PCV) COVID-19 Vaccine ( season), 07/04/2022, 06/24/2021, Additional history existsInfluenza Vaccine (#1) /, 06/24/2021, 07/08/2020Fall Risk Umbvablzz37/03/2026 8887Lvngeukkqsj501Colorectal Cancer Oyfmsmoss48/30/2031 HIB VaccinesAged OutNo longer eligible based on [...] MemberRelationshipSpecialtyStart DateEnd Date Jack Vogt MD [address] [facility] [address] [place] [address] PCP - General05/08/22
--- OUTSIDE RECORDS SUMMARY | 2025-07-09 20:13 | XMS_ITS | Clinical Summary ---
Author Organization [facility] Address [address] [place] [address] Care Team Providers Care Employment Service Specialist Name Role Phone Jack Viera Primary Care Provider [phone] Social History Tobacco UseTypesPacks/DayYears UsedDateSmoking Tobacco: Never Assessed CommentsUnknownSex and Gender InformationValueDate RecordedSex Assigned at Not on fileLegal RimYsjpmo27/02/2012 9:29 AM ESTGender IdentityNot on fileSexual OrientationNot on file Plan of Treatment Not on file Care Teams Team MemberRelationshipSpecialtyStart DateEnd Date Jack Viera [facility] [place] [address] PCP - General12/28/00
--- OUTSIDE RECORDS SUMMARY | 2025-07-09 20:14 | XMS_ITS | Encounter Summary ---
Author Organization [facility] Address [address] [place] [address] Care Team Providers Care Supervisor Road Administrator Name Role Phone Jack Vogt MD Primary Care Provider [phone] Chantelle Recio PHARMACY BUYER Unavailable [phone] Valerie Go RN Unavailable [phone] Encounter Details DateTypeDepartmentCare Team (Latest Contact Info)Wfigpyenyhp42/16/2025Abstract [facility] [place] [facility] [address] [facility] [address] [place] [address] Jack Vogt MD [address] [facility] [address] [place], [place] [address] Social History Tobacco UseTypesPacks/DayYears UsedDateSmoking Tobacco: NeverSmokeless Tobacco: NeverAlcohol UseStandard Drinks/WeekCommentsDefer0 (1 standard drink = 0.6 oz pure alcohol)caffeine yes type:coffeePHQ-2AnswerDate RecordedPatient Health Questionnaire-2 Dpjnw191CommentsUnknownSex and Gender InformationValueDate RecordedSex Assigned at BirthNot [...] MemberRelationshipSpecialtyStart DateEnd Date Jack Vogt MD [address] [facility] [address] [place] [address] PCP - GeneralInternal Medicine01/24/23 Chantelle Recio, HIEU [address] [place] [address] Social WorkerFamily Medicine06/10/25 Valerie Go, RN [address] [facility] [address] [place] [address] Registered NurseFamily Ebdximep36/13/25documented as of this encounter
--- OUTSIDE RECORDS SUMMARY | 2025-07-09 20:14 | XMS_ITS | Clinical Summary ---
Author Organization [facility] Address [address] [place] [address] Phone Care Team Providers Care Certifed Refrigeration Operator Name Role Phone Unavailable Primary Care Provider Unavailabl e Encounters DateTypeDepartmentCare EvigDjavzjulbhs61/22/2025Scanned Document [facility] [address] [place] [address] Scanning, Generic Provider from Last 3 Months Social History Tobacco UseTypesPacks/DayYears UsedDateSmoking Tobacco: Never Assessed CommentsUnknownSex and Gender InformationValueDate RecordedSex Assigned at Not on fileLegal SheBwyrrr12/26/2022 6:07 AM ESTGender IdentityNot on fileSexual OrientationNot on file Plan of Treatment Health MaintenanceDue DateLast DoneCommentsCT Toflqgwrgxgy58/20/1950Colonoscopy 1949Colorectal Cancer Kpkzzjvkb73/20/1950FIT-DNA (Cologuard)1949FIT 1950Lipid Panel1950 3629Dzmriarbjxstv34/20/1950Welcome to Medicare Visit 1950MMR Vaccines (1 of [...]
--- OUTSIDE RECORDS SUMMARY | 2025-07-09 20:14 | XMS_ITS | Encounter Summary ---
Author Organization [facility] Address [address] [place] [address] Care Team Providers Care Daytime Caregiver Name Role Phone Jack Vogt MD Primary Care Provider [phone] Chantelle Recio TRANSIT BUS OPERATOR Unavailable [phone] Encounter Details DateTypeDepartmentCare Team (Latest Contact Info)Axtcrkxshxl64/10/2025Telephone [facility] [address] [facility] [address] [place] [address] 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 NP [address] [place] [address] Social History Tobacco UseTypesPacks/DayYears UsedDateSmoking Tobacco: NeverSmokeless Tobacco: NeverAlcohol UseStandard Drinks/WeekCommentsDefer0 (1 standard drink = 0.6 oz pure alcohol)caffeine yes type:coffeePHQ-2AnswerDate RecordedPatient Health Questionnaire-2 Vcyjd889CommentsUnknownSex and Gender InformationValueDate RecordedSex Assigned at BirthNot [...] date of 1950, her phone number is [phone] last [id number] We were unaware that I believe probably [...] me. At the earliest convenience, it is [phone]. My name is Fabby, I am to [...] MemberRelationshipSpecialtyStart DateEnd Date Jack Vogt MD [address] [facility] [address] [place] [address] PCP - GeneralInternal Medicine01/24/23 Chantelle Recio, HIEU [address] [place] [address] Social WorkerFamily Medicine06/10/25documented as of this encounter
--- OUTSIDE RECORDS SUMMARY | 2025-07-09 20:14 | XMS_ITS | Encounter Summary ---
Author Organization [facility] Address [address] [place] [address] Care Team Providers Care Crematory Attendant Name Role Phone Jack Vogt MD Primary Care Provider [phone] Chantelle Recio Unavailable [phone] Valerie Go RN Unavailable Encounter Details DateTypeDepartmentCare Team (Latest Contact Info)Dwxilvaviks48/06/2025Telephone [facility] [address] [facility] [address] [place] [phone] Jack Vogt MD [address] [facility] [address] [place], [place] [id number] Social History Tobacco UseTypesPacks/DayYears UsedDateSmoking Tobacco: NeverSmokeless Tobacco: NeverAlcohol UseStandard Drinks/WeekCommentsDefer0 (1 standard drink = 0.6 oz pure alcohol)caffeine yes type:coffeePHQ-2AnswerDate RecordedPatient Health Questionnaire-2 Ogyct934CommentsUnknownSex and Gender InformationValueDate RecordedSex Assigned at BirthNot [...] from HH inthe next few days. * HEIU Reese - 06/25/2025 9:59 AM EDT <June 25, 2025, 09:59 - HIEU Reese> Most recent labs faxed to [facility] Dr. Espinosa * HIEU Reese - 06/24/2025 8:31 AM EDT <June 24, 2025, 08:31 - HIEU Reese> Spoke to pt yesterday. She is agreeable to home visit by [employer]. Discussed that she was already referred for home delivered meals, but denies receiving call for this. Advised [employer]IGHT[employer] EXECUTIVE would follow up on referral. Called [facility]. They state they are currently at capacity and pt is on a waiting list. <June 24, 2025, 09:55 - HIEU Reese> Called pt, notified of waiting list for home delivered meals. Offered paid meal delivery service. Pt has tried [employer] before and didn't like it. She will wait to hear from [employer]. Also advised that our home-visiting [facility] Malia will be contacting her to schedule. Pt has not received [facility] hardship form yet. Enc her to watch [...] MemberRelationshipSpecialtyStart DateEnd Date Jack Vogt MD [address] [facility] [address] [place] [address] PCP - GeneralInternal Medicine01/24/23 Chantelle Recio, HIEU [address] [place] [address] Social WorkerFamily Medicine06/10/25 Valerie Go, DEBORA [address] [facility] [address] [place] [address] Registered NurseFamily Zaxyqezy67/13/25documented as of this encounter
--- OUTSIDE RECORDS SUMMARY | 2025-07-09 20:14 | XMS_ITS | Encounter Summary ---
Author Organization [facility] Address [address] [place] [address] Care Team Providers Care Director Check Name Role Phone Jack Vogt MD Primary Care Provider [phone] Chantelle Recio [employer]PER[employer] Unavailable [phone] Valerie Go RN Unavailable [phone] Encounter Details DateTypeDepartmentCare Team (Latest Contact Info)Euxzeduskng23/22/2025Clinisync Result Encounter [facility] External Department Unsolicited Provider, Generic External Data Social History Tobacco UseTypesPacks/DayYears UsedDateSmoking Tobacco: FormerCigarettes Smokeless Tobacco: NeverAlcohol UseStandard Drinks/WeekCommentsDefer0 (1 standard drink = 0.6 oz pure alcohol)caffeine yes type:coffeePHQ-2AnswerDate RecordedPatient Health Questionnaire-2 Codvl238CommentsUnknown Sex and Gender InformationValueDate RecordedSex Assigned at BirthNot on file Legal QupVfyxsz62/15/2023 6:57 PM EDTGender IdentityNot on fileSexual OrientationNot on filedocumented as of this encounter Plan of Treatment Not on file documented as of this encounter Goals GoalPatient Goal TypeAssociated ProblemsRecent ProgressPatient-Stated?Author Help patient manage antidepressant medication Care PlanPatient on antidepressant monitoring Renetta Enamorado NP documented as of this encounter Procedures Procedure NamePriorityDate/TimeAssociated DiagnosisCommentsTBH VITAMIN D 25 [place] Guskqyj5907/09/2025 2:40 PM EDT [facility] CLUBDgubuub11/22/2025 2:40 PM EDT HMHP CBC WITH PLATELET NO BAGUSNDMCFANIdqjpcs97/22/2025 2:40 PM EDT [facility] ERICWEZJQdtrghr48/22/2025 2:40 PM EDT ALL URIC WHLSBidmyac65/22/2025 2:40 PM EDT ALL RENAL FUNCTION GBXEAQtvgyxr65/22/2025 2:40 PM EDT ALL OHDFBEWCKTjbgwxo53/22/2025 2:40 PM EDT ALL FOLIC CHQOHqqxpyt73/22/2025 2:40 PM EDT documented in this encounter Results * (ABNORMAL) ALL MAGNESIUM (07/09/2025 2:40 PM EDT)ComponentValueRef RangeTest MethodAnalysis TimePerformed AtPathologist SignatureMAGNESIUM0.6(LL)1.8 - 2.4 mg/dLTBHComment:RESULTS CALLED TOSpecimen (Source)Anatomical Location / LateralityCollection Method / VolumeCollection TimeReceived Time07/09/2025 2:40 PM EDT1 3:28 PM EDT Narrative [facility]IN[facility] - 07/09/2025 4:41 PM EDT Authorizing ProviderResult TypeResult StatusGeneric External Data Provider CLINISYNCFinal ResultPerforming OrganizationAddressCity/State/ZIP CodePhone Number CLINISYNC TBH * (ABNORMAL) ALL URIC ACID (07/09/2025 2:40 PM EDT)ComponentValueRef RangeTest MethodAnalysis TimePerformed AtPathologist SignatureURIC ACID8.1(H)2.6 - 6.0 mg/dLTBHSpecimen (Source)Anatomical Location / LateralityCollection Method / VolumeCollection TimeReceived Time07/09/2025 2:40 PM EDT1 3:28 PM EDT Narrative CLIN[facility]YNC - 07/09/2025 4:41 PM EDT Authorizing ProviderResult TypeResult StatusGeneric External Data Provider CLINISYNCFinal ResultPerforming OrganizationAddressCity/State/ZIP CodePhone Number [facility] TB * (ABNORMAL) ALL RENAL FUNCTION PANEL (07/09/2025 2:40 PM EDT)ComponentValueRef RangeTest MethodAnalysis TimePerformed AtPathologist GkmupueoqQYEXRV467424 - 145 mmol/LTBHPOTASSIUM3.2(L)3.5 - 5.1 mmol/NQFKQOXEUGCO13463 - 107 mmol/LTBH [place] CWKNCGK05.921.0 - 32.0 mmol/LTBHANION GAP16.1FAVNSFHXTR2320 - 106 mg/dL TBHBLOOD UREA WTJSLRKP95.0(H)7.0 - 18.0 mg/dLTBHCREATININE3.20(H)0.55 - 1.02 mg/dLTBHTBH EGFR-AF ARGGXWKL91(L)>=60 mL/min/1.73m 2TBHTBH EGFR-NON AF FZFZWHFL88(L)>=60 mL/min/1.73m 2TBHBUN CREATININE RATIO20.8LNKSHICBCZ4.1(L)8.5 - 10.1 mg/dLTBHPHOSPHORUS4.22.6 - 4.7 mg/dLTBHALBUMIN LEVEL3.1(L)3.4 - 5.0 g/dLTBHSpecimen (Source)Anatomical Location / LateralityCollection Method / VolumeCollection TimeReceived Time07/09/2025 2:40 PM EDT1 3:28 PM EDT Narrative CLINISYNC - 07/09/2025 4:41 PM EDT Authorizing ProviderResult TypeResult StatusGeneric External Data Provider CLINISYNCFinal ResultPerforming OrganizationAddressCity/State/ZIP CodePhone Number [facility] TB * (ABNORMAL) ALL FOLIC ACID (07/09/2025 2:40 PM EDT)ComponentValueRef RangeTest MethodAnalysis TimePerformed AtPathologist SignatureFOLATE4.80(L)8.60 - 58.90 ng/mLTBHSpecimen (Source)Anatomical Location / LateralityCollection Method / VolumeCollection TimeReceived Time07/09/2025 2:40 PM EDT1 3:28 PM EDT [facility] - 07/09/2025 4:27 PM EDT [facility] DROP OFF Authorizing ProviderResult TypeResult StatusGeneric External Data Provider CLINISYNCMatteawan State Hospital For The Criminally Insaneal ResultPerforming OrganizationAddThomas Jefferson University Hospitalty/State/ZIP CodePhone Number KATHY LAYNE * TBH VITAMIN D 25 [place] (07/09/2025 2:40 PM EDT)ComponentValueRef RangeTest Method Analysis TimePerformed AtPathologist SignatureVITAMIN D28.8ng/mLTBHComment: <20 ng/mL Vit D deficient 20-<30 ng/mL Vit D insufficient 30-100 ng/mL ??Vit D sufficient >100 ng/mL Potential Toxicity Specimen (Source)Anatomical Location / LateralityCollection Method / Volume Collection TimeReceived Time07/09/2025 2:40 PM EDT1 3:28 PM EDT [facility] - 07/09/2025 4:27 PM EDT [facility] DROP OFF Authorizing ProviderResult TypeResult StatusGeneric External Data Provider CLINISYNCFinal ResultPerforming OrganizationAddThomas Jefferson University Hospitalty/State/ZIP CodePhone Number KATHY TB * [facility] FERRITIN (07/09/2025 2:40 PM EDT)ComponentValueRef RangeTest Method Analysis TimePerformed AtPathologist SbgonbuggQKGJMVPV39.08.0 - 252.0 ng/mLTBH Specimen (Source)Anatomical Location / LateralityCollection Method / Volume Collection TimeReceived Time07/09/2025 2:40 PM EDT1 3:28 PM EDT [facility] - 07/09/2025 4:27 PM EDT [facility] DR[facility] OFF Authorizing ProviderResult TypeResult StatusGeneric External Data Provider CLINISYNCFinal ResultPerforming OrganizationAddressty/State/ZIP CodePhone Number KATHY TB * (ABNORMAL) [facility] (07/09/2025 2:40 PM EDT)ComponentValueRef Range Test MethodAnalysis TimePerformed AtPathologist SignatureTBH IRON40.0(L)50.0 - 170.0 ug/dLTBHTBH TOTAL IRON BINDING VSTNEAXY578.0250.0 - 450.0 ug/dLTBHTBH PERCENT IRON HRLGGIQGLT56.3%TBHSpecimen (Source)Anatomical Location / LateralityCollection Method / VolumeCollection TimeReceived Time07/09/2025 2:40 PM EDT1 3:28 PM EDT Narrative [facility] - 07/09/2025 4:06 PM EDT Authorizing ProviderResult TypeResult StatusGeneric External Data Provider CLINISYNCFinal ResultPerforming OrganizationAddressCity/State/ZIP CodePhone Number KATHY TREJO * (ABNORMAL) [facility] CBC WITH PLATELET NO DIFFERENTIAL (07/09/2025 2:40 PM EDT) ComponentValueRef RangeTest MethodAnalysis TimePerformed AtPathologist SignatureTBH WBC4.34.0 - 11.0 10 3/uLTBHTBH RBC3.14(L)4.20 - 5.40 10 6/uLTBH TBH HGB9.1(L)12.0 - 16.0 g/dLTBHTBH HCT26.8(L)36.0 - 48.0 %TBHTBH MCV85.481.0 - 99.0 fLTBHTBH MCH29.026.7 - 34.0 pgTBHTBH MCHC34.029.9 - 35.2 g/dLTBHTBH RDW 17.8(H)11.0 - 15.0 %TBHTBH WWG067827 - 450 10 3/uLTBHTBH MPV10.79.5 - 13.5 fL TBHSpecimen (Source)Anatomical Location / LateralityCollection Method / Volume Collection TimeReceived Time07/09/2025 2:40 PM EDT1 3:28 PM EDT Narrative [facility] - 07/09/2025 3:55 PM EDT Authorizing ProviderResult TypeResult StatusGeneric External Data Provider CLINISYNCFinal ResultPerforming OrganizationAddressCity/State/ZIP CodePhone Number KATHY TREJO documented in this encounter Visit Diagnoses Not on filedocumented in this encounter Additional Health Concerns Active ProblemsNoted DateDiagnosed DatePatient on antidepressant monitoring plan 02/25/2025ssessmentNoted TimePHQ-9 Depression Total Score: 1506 11:31 AM EDTdocumented as of this encounter Care Teams Team MemberRelationshipSpecialtyStart DateEnd Date Jack Vogt MD [address] [facility] [address] [place] [address] PCP - GeneralInternal Medicine01/24/23 Chantelle Recio, HIEU [address] [place], [place] [id number] Social WorkerFamily Medicine06/10/25 Valerie Go, RN [address] [facility] [address] [place] [address] Registered NurseFamily Iqgsmhpa38/13/25documented as of this encounter
--- OUTSIDE RECORDS SUMMARY | 2025-07-09 20:14 | XMS_ITS | Encounter Summary ---
Author Organization [facility] Address [address] [place] [address] Care Team Providers Care Customer Leader Name Role Phone Jack Vogt MD Primary Care Provider [phone] Chantelle Recio SIZE TESTER Unavailable [phone] Valerie Go RN Unavailable [phone] Reason for Referral * Home Health (Routine) - AuthorizedSpecialtyDiagnoses / ProceduresReferred By ContactReferred To [facility] Services Diagnoses Fibromyalgia Degenerative lumbar spinal stenosis Radiculopathy of lumbar region Spondylolisthesis of lumbar region Spinal stenosis, lumbar region with neurogenic claudication 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 NP [address] [place] [address] Phone: tel: fax: [facility] Referral IDStatusReasonStart DateExpiration DateVisits RequestedVisits [id number] Specialty Services Required [id number] Encounter Details DateTypeDepartmentCare Team (Latest Contact Info)Kafqjkbdmej25/13/2025Patient Outreach [facility] [address] [place] [phone] Chantelle Recio LSW [address] [place] [address] Social History Tobacco UseTypesPacks/DayYears UsedDateSmoking Tobacco: NeverSmokeless Tobacco: NeverAlcohol UseStandard Drinks/WeekCommentsDefer0 (1 standard drink = 0.6 oz pure alcohol)caffeine yes type:coffeePHQ-2AnswerDate RecordedPatient Health Questionnaire-2 Enggb924CommentsUnknownSex and Gender InformationValueDate RecordedSex Assigned at BirthNot [...] MemberRelationshipSpecialtyStart DateEnd Date Jack Vogt MD [address] [facility] [address] [place] [address] PCP - GeneralInternal Medicine01/24/23 Chantelle Recio, HIEU [address] [place] [address] Social WorkerFamily Medicine06/10/25 Valerie Go, DEBORA [address] [place] [address] Registered NurseFamily Jowqtvli03/13/25documented as of this encounter
--- OUTSIDE RECORDS SUMMARY | 2025-07-09 20:14 | XMS_ITS | Clinical Summary ---
Author Organization [facility] Address [address] [place] [address] Care Team Providers Care Roll Cutter Name Role Phone Jack Vogt MD Primary Care Provider [phone] Chantelle Recio SKID MAN Unavailable [phone] Valerie Go RN Unavailable [phone] Allergies Active AllergyReactionsCriticalityNoted TvqgBkjuibeqZhiizcctuydd79/22/2023 Other Reaction(s): Myalgias Tywkyf7305/09/2023 Other Reaction(s): Unknown Itprrbjsoy58/22/2023 Other Reaction(s): Myalgias LjmljuYapupzhpprIuwudd61/17/2018 skin irritation and itching with jewelry worn Other reaction(s): Dermatitis skin irritation and itching with jewelry worn Other12/12/2024 Other Reaction(s): myalgias (muscle pain) Pneumococcal Vac Csbcwuicwh64/22/2023 Other Reaction(s): Swelling, Redness Mcvqlworsvp71/22/2023 Other Reaction(s): Myalgias Shellfish VpuaenaXnejpscbuksVcvq97/17/9010Kvbbmthwyvb16/22/2023 Other Reaction(s): Myalgias QosfzxbYpcqvtk91/27/2025 Other Reaction(s): Other (See Comments) Fyjhmkvplxf89/22/2023 Other Reaction(s): Vomiting Medications MedicationSigDispense QuantityRefillsLast FilledStart DateEnd DateStatus nitroglycerin (Nitrostat) 0.4 MG SL tablet Indications:Atherosclerosis 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Place 1 tablet (0.4 mg) under the tongue every 5 (five) minutes if needed for chest pain 90 tablet 1204Active fenofibrate (Tricor) 145 MG tablet Indications:Mixed hyperlipidemiaTAKE 1 TABLET BY MOUTH EVERY DAY 90 tablet 4025Active ezetimibe (Zetia) 10 MG tablet Indications:Stage 3b chronic kidney disease ([facility]-H[facility])TAKE 1 TABLET BY MOUTH EVERY DAY 90 [...] tablet (100 mg) before bedtime. 90 tablet 1107/5303846Active NIFEdipine XL (Procardia XL) 90 MG 24 hr tablet Indications:Atherosclerosis 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Take 1 tablet [...] doxazosin (Cardura) 2 MG tablet Indications:Atherosclerosis 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TAKE 1 TABLET (2 MG) BY MOUTH IN THE MORNING 90 tablet /6Active escitalopram (Lexapro) 5 MG tablet Indications:Depressive disorderTAKE 1 TABLET BY MOUTH EVERY DAY IN THE MORNING 90 tablet 5Active escitalopram (Lexapro) 5 MG tablet Indications:Depressive disorderTake 1 tablet (5 mg) by mouth in the morning. 30 tablet Discontinued doxazosin (Cardura) 2 MG tablet Indications:Atherosclerosis 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Take 1 tablet (2 mg) by mouth in the morning. 30 tablet Discontinued potassium chloride CR (Klor-Con M10) 10 MEQ ER tablet Indications:HypokalemiaTake 1 tablet (10 mEq) by mouth in the morning and 1 tablet (10 mEq) before bedtime. Do all this for 7 days. Do not crush or chew. 14 tablet Expired Active Problems ProblemNoted DateDiagnosed MsqoPklmciqkpm97/07/2024Stage 3b chronic kidney bbocqom2510/04/2023Localized edema10/04/2023Kidney thecnk4405/10/2023ulmonary embolism with amqfwipqjo67/18/2023therosclerosis of [place] coronary artery of [place] heart with stable angina hqlwwdbu94/18/2023ERD (gastroesophageal reflux disease)05/05/2023epressive vplclgiv12/18/2023enign essential hypertension 05/05/2023arotid artery qudfiymwz97/18/2023Mixed aosjhwrwpkuksy61/18/2023 Primary osteoarthritis of both knees05/05/20237824Tfwpkihmyfdr75/18/2023rimary generalized hypertrophic kqmffbqqcgaqus42/18/2023Fibrocystic breast changes 05/05/2023Stricture of cbhnwo2405/05/2023AD (peripheral artery disease)05/05/2023 Tobacco rncpxhxayb14/18/2023rteriosclerosis qvsnjarwdv96/18/2023Renal artery zxregrft83/18/2023aytime wljjqpderb12/18/2023Spinal stenosis, lumbar region with neurogenic epscotsggslf26/18/2023Radiculopathy of lumbar vvamvo9905/05/2023 Degenerative lumbar spinal xrheqqwo85/18/2023Spondylolisthesis of lumbar region 05/05/2023Spondylosis of lumbar spine05/05/2023Left foot drop05/05/2023Venous insufficiency (chronic) (peripheral)05/05/2023eripheral arteriosclerosis 05/05/2023Obesity (BMI 30.0-34.9)05/05/2023Non-intractable vomiting with nausea 05/05/2023Insomnia due to medical jizymbyax66/18/2023ortic dissection, zgaeecwjg06/18/2023ecreased estrogen level05/05/2023ge-related osteoporosis without current pathological fnxxhipc97/18/2023roteinuria, unspecified 05/05/2023Thyroid iedoos1005/05/2023Sinus pbjaafkqvm07/18/1186Bhbcxwt63/18/2023 Irritable bowel pirilrwu52/18/2023nemia due to chronic blood loss05/05/2023 Allergy to nfwbvkp1905/05/2023Statin ujjnlibernj11/18/2023ostsurgical percutaneous transluminal coronary angioplasty nmskrl7605/05/2023nticoagulated 01/04/2023oronary atherosclerosis of autologous vein bypass graft05/04/2022 Overview (05/10/2023): Last Assessment & Plan: stable Coronary stent oftdsk2505/04/2022ulmonary glmsnhl5405/04/2022History of pulmonary tyuoymtv09/30/2021History of thromboembolism of vein03/31/2021History of coronary artery bypass pfasnjq5301/09/2020History of coronary artery stent amwqtwijn06/23/2020Allergy to statin ymyxxidxzs81/20/2020Current nicotine use 02/27/2019Lumbosacral spondylosis without fagpibbyuh60/25/2019Cardiovascular stress test gadhhfvn66/05/2018Chest pain05/23/20186040Dosyzvmopgzgg20/05/2018 Neurogenic npugtqdcckmw57/21/2018 Resolved Problems ProblemNoted DateDiagnosed DateResolved DateGeneralized abdominal pain05/05/2023 04/03/2025Type 2 diabetes mellitus with other diabetic kidney complication /11/20230492Jznyhckxz64Diabetic renal disease Encounters DateTypeDepartmentCare RgxhHvtulkcxtob53/22/2025linisync Result Encounter [facility] External Department Unsolicited Provider, Generic External Data 07/09/2025Patient Outreach [facility] [address] [place] [address] Valerie Go RN 07/09/2025bstract [facility] [address] [place] [address] Jack Vogt MD 07/08/2025[facility] [address] [place] [address] Jack Vogt MD 07/03/2025bstract [facility] [address] [place] [address] Jack Vogt MD 06/30/2025Patient Outreach [facility] [address] [place] [address] Chantelle Recio LSW 06/27/2025 12:00 PM EDTOffice Visit [facility] [address] [place] [address] 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, LUCRETIA Chronic kidney disease, stage 4 (severe) (HCC) (Primary Dx); Chronic diastolic congestive heart failure (HCC); Atherosclerosis 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; Benign essential hypertension; Degenerative lumbar spinal stenosis; Radiculopathy of lumbar region; Spinal stenosis, lumbar region with neurogenic claudication; Spondylolisthesis of lumbar region; Need for home health care; Routine lab draw; Advanced care planning/counseling llfromwlsw94/10/2025Telephone [facility] [address] [place] [address] 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 NP 06/23/2025Telephone [facility] [address] [place] [address] Jack Vogt MD 06/20/2025[facility] [address] [place] [address] Jack Vogt MD Atherosclerosis 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; Depressive xmldrfte28/23/2025Patient Outreach [facility] [address] [place] [address] Chantelle Recio LSW 06/09/2025 11:15 AM EDTOffice Visit [facility] [address] [place] [address] Jack Vogt MD Chronic kidney disease, stage 4 (severe) (HCC) (Primary Dx); Benign essential hypertension ; Functional diarrhea; 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 ; Chronic diastolic congestive heart failure (HCC); Vmzsymopzks77/22/2025linisync Result Encounter [facility] External Department Unsolicited Jack Vogt MD 06/09/2025Telephone [facility] [address] [place] [address] Jack Vogt MD 06/09/2025[facility]phone [facility] [address] [place] [address] Jack Vogt MD call with lofsmqq3906/09/2025amboo flowsheet [facility] [address] [place] [address] Jack Vogt MD 06/09/20253499Zlutsf39/08/2025bstract [facility] [address] [place] [address] Jack Vogt MD 05/21/2025bstract [facility] [address] [place] [address] Jack Vogt MD 05/14/2025Telephone [facility] [address] [place] [address] Jack Vogt MD 05/13/2025bstract [facility] [address] [place] [address] Jack Vogt MD 05/12/2025bstract [facility] [address] [place] [address] Jack Vogt MD 05/08/2025Telephone [facility] [address] [place] [address] Jack Vogt MD Apfeze7104/29/2025bstract [facility] [address] [place] [address] Jack Vogt MD 04/29/2025bstract [facility] [address] [place] [address] Jack Vogt MD 04/24/2025bstract [facility] [address] [place] [address] Jack Vogt MD 04/24/2025bstract [facility] [address] [place] [address] Jack Vogt MD 04/24/2025bstract [facility] [address] [place] [address] Jack Vogt MD 04/17/2025bstract [facility] [address] [place] [address] Jack Vogt MD 04/15/2025Telephone [facility] [address] [place] [address] Jack Vogt MD 04/15/2025Patient Outreach [facility] [place] [address] Lucy Dooley, DIRECTOR OF SERVICES 04/14/2025bstract [facility] [address] [place] [address] Jack Vogt MD 04/10/2025bstract [facility] [address] [place] [address] Jack Vogt MD 04/10/2025bstract [facility] [address] [place] [address] Jack Vogt MD 04/10/2025bstract [facility] [address] [place] [address] Jack Vogt MD 04/09/2025bstract [facility] [address] [place] [address] Jack Vogt MD 04/09/2025bstract [facility] [address] [place] [address] Jack Vogt MD 04/09/2025bstract [facility] [address] [place] [address] Jack Vogt MD 04/09/2025bstract [facility] [address] [facility] [address] [place] [address] Jack Vogt MD 04/08/2025Telephone [facility] [address] [facility] [address] [place] [address] Jack Vogt MD FYI04/08/2025bstract [facility] [address] [facility] [address] [place] [address] Jack Vogt MD from Last 3 Months Immunizations ImmunizationAdministration DatesNext DueInfluenza, High-dose Seasonal, Quadrivalent, Preservative Free06/24/2021Influenza, Seasonal, Quadrivalent, Cojdehlcbg75/17/2022,07/08/2020Moderna Bivalent Booster Vbvdicfzydp90/17/2022 Pneumococcal Polysaccharide URIK4382Smallpox Monkeypox, Live Attenuated, Preservative Free07/08/2020 Family History Medical HistoryRelationNameCommentsLymphomaBrotherHeart diseaseFatherStroke FatherHeart diseaseMotherOvarian cancerSisterDiabetesSonRelationNameStatus CommentsBrotherFatherDeceasedMotherDeceasedSisterSonAlive Social History Tobacco UseTypesPacks/DayYears UsedDateSmoking Tobacco: FormerCigarettes Smokeless Tobacco: Never Tobacco Cessation:Counseling Given: Not Answered Alcohol UseStandard Drinks/WeekCommentsDefer0 (1 standard drink = 0.6 oz pure alcohol)caffeine yes type:coffeePHQ-2AnswerDate RecordedPatient Health Questionnaire-2 Ctgnx228CommentsUnknownSex and Gender InformationValueDate RecordedSex Assigned at BirthNot on fileLegal SexFemale 11/30/2022 6:57 PM EDTGender IdentityNot on fileSexual OrientationNot on file Last Filed Vital Signs Vital SignReadingTime TakenCommentsBlood Zqrszzhz381/6010 1:28 PM EDT Zvcak241006/27/2025 1:28 PM LKRZhjdlqtcfva92.4 ??C (97.5 ??F)06/27/2025 1:28 PM EDTRespiratory Hlfa823302/25/2025 11:40 AM EDTOxygen Dgzowgmulm00%06/27/2025 1:28 PM EDTInhaled Oxygen Concentration--Qcenla84.5 kg (129 lb)06/09/2025 11:14 AM YOJDkwfks288.5 cm (5' 2 )06/09/2025 11:14 AM EDTBody Mass Index23.59006/09/2025 11:14 AM EDT Plan of Treatment Health MaintenanceDue DateLast DoneCommentsCT Xubnepldxskc49/20/1950FIT-DNA 1949FIT1949FOBT1949 6103Qntbjcttltvgd39/20/1950Diabetes: Retinopathy Ijaopkflf77/11/2022, 3Diabetes: Urine Protein Pimqbpgvp67/, 10/09/2019, 09/28/2018Diabetes: Hemoglobin A1C , 03/20/2024, 12/13/2023, Additional history existsInfluenza Vaccine (#1)/, 06/24/2021, 07/08/20201679Kpdyltohpgj18/30/2031 1Colorectal Cancer Oabkiaxog70/30/2031Pneumococcal Vaccine: 65+ Years Bfrhukbuokxl90/15/7375YkrwznsxbIgywfmurqshj64/20/2024, 02/05/2024, 02/03/2023, Additional history exists Goals GoalPatient Goal TypeAssociated ProblemsRecent ProgressPatient-Stated?Author Help patient manage antidepressant medication Care PlanPatient on antidepressant monitoring Renetta Enamorado NP Procedures Procedure NamePriorityDate/TimeAssociated DiagnosisCommentsALL MAGNESIUMRoutine 07/09/2025 2:40 PM EDT ALL URIC IZRDMxrbucp95/22/2025 2:40 PM EDT ALL RENAL FUNCTION RLOMTOpvyxss06/22/2025 2:40 PM EDT ALL FOLIC GQBYDzfhujr09/22/2025 2:40 PM EDT TBH VITAMIN D 25 MYMqhruul35/22/2025 2:40 PM EDT [facility] TDWOJUIPGrhucnb32/22/2025 2:40 PM EDT [facility] IRON AND CTKDNkbxgvy72/22/2025 2:40 PM EDT HMHP CBC WITH PLATELET NO XAIXMLITSQMTKksosfb13/22/2025 2:40 PM EDT COMPREHENSIVE METABOLIC IEWSKRcqkxqs97/10/2025 3:03 PM EDT Chronic kidney disease, stage 4 (severe) (HCC) ALL THYROXINE (T4) MTIPZftbnmm52/22/2025 12:41 PM EDT ALL CBC WITH AUTO TRKPBdxoeuj65/22/2025 12:41 PM EDT TSH W/REFLEX P3Entlnwu60/22/2025 12:41 PM EDT ALL PRO AAALdfitku97/22/2025 12:41 PM EDT [facility] CMP (CMP) (FOR REMOTE [facility] USE)Icevrtf0206/09/2025 12:41 PM EDT POCT GLYCATED HEMOGLOBIN, CPSOSItlkxxi77/27/2025 12:07 PM EDT Type 2 diabetes mellitus with diabetic peripheral angiopathy without gangrene (HCC) MAMMOGRAM*Pdvetrr6002/05/2024 1:10 PM EDTMICROALBUMIN / CREATININE URINE RATIO Jdujaae4712/13/2023 11:50 AM EDT Type 2 diabetes mellitus with stage 3b chronic kidney disease, without long-term current use of insulin (HCC) COLOR FUNDUS PHOTOGRAPHY - OU - BOTH HDKAArmesrl52/03/2023 12:00 PM EST KMMSJILGTEHAsomuoq11/30/2021 12:00 PM EDT from Last 3 Months or Most Recently Relevant to Health Maintenance Results * TBH VITAMIN D 25 [place] (07/09/2025 2:40 PM EDT)ComponentValueRef RangeTest Method Analysis TimePerformed AtPathologist SignatureVITAMIN D28.8ng/mLTBHComment: <20 ng/mL Vit D deficient 20-<30 ng/mL Vit D insufficient 30-100 ng/mL ??Vit D sufficient >100 ng/mL Potential Toxicity Specimen (Source)Anatomical Location / LateralityCollection Method / Volume Collection TimeReceived Time07/09/2025 2:40 PM EDT1 3:28 PM EDT Narrative CLINISYLA - 07/09/2025 4:27 PM EDT [facility] DROP OFF Authorizing ProviderResult TypeResult StatusGeneric External Data Provider CLINISYNCFinal ResultPerforming OrganizationAddressCity/State/ZIP CodePhone Number CLINISYNC TB * (ABNORMAL) [facility]ON AND TIBC (07/09/2025 2:40 PM EDT)ComponentValueRef Range Test MethodAnalysis TimePerformed AtPathologist SignatureTBH IRON40.0(L)50.0 - 170.0 ug/dLTBHTBH TOTAL IRON BINDING BUIEULMQ883.0250.0 - 450.0 ug/dLTBHTBH PERCENT IRON KZTLSJVZLA02.3%TBHSpecimen (Source)Anatomical Location / LateralityCollection Method / VolumeCollection TimeReceived Time07/09/2025 2:40 PM EDT1 3:28 PM EDT Narrative CLINISYNC - 07/09/2025 4:06 PM EDT Authorizing ProviderResult TypeResult StatusGeneric External Data Provider CLINISYNCFinal ResultPerforming OrganizationAddressCity/State/ZIP CodePhone Number CLINISYNC TBH * (ABNORMAL) HMHP CBC WITH PLATELET NO DIFFERENTIAL (07/09/2025 2:40 PM EDT) ComponentValueRef RangeTest MethodAnalysis TimePerformed AtPathologist SignatureTBH WBC4.34.0 - 11.0 10 3/uLTBHTBH RBC3.14(L)4.20 - 5.40 10 6/uLTBH TBH HGB9.1(L)12.0 - 16.0 g/dLTBHTBH HCT26.8(L)36.0 - 48.0 %TBHT MCV85.481.0 - 99.0 fLTBHTBH MCH29.026.7 - 34.0 pgTBHTBH MCHC34.029.9 - 35.2 g/dLTBHTBH RDW 17.8(H)11.0 - 15.0 %TBHTBH MWK607176 - 450 10 3/uLTBHTBH MPV10.79.5 - 13.5 fL TBHSpecimen (Source)Anatomical Location / LateralityCollection Method / Volume Collection TimeReceived Time07/09/2025 2:40 PM EDT1 3:28 PM EDT Narrative CLINISYLA - 07/09/2025 3:55 PM EDT Authorizing ProviderResult TypeResult StatusGeneric External Data Provider CLINISYNCFinal ResultPerforming OrganizationAddressCity/State/ZIP CodePhone Number [facility] * [facility] FERRITIN (07/09/2025 2:40 PM EDT)ComponentValueRef RangeTest Method Analysis TimePerformed AtPathologist QlmqdabtkDWKJTDZI25.08.0 - 252.0 ng/mLTBH Specimen (Source)Anatomical Location / LateralityCollection Method / Volume Collection TimeReceived Time07/09/2025 2:40 PM EDT1 3:28 PM EDT Narrative CLINISYNC - 07/09/2025 4:27 PM EDT [facility] DROP OFF Authorizing ProviderResult TypeResult StatusGeneric External Data Provider CLINISYNCFinal ResultPerforming OrganizationAddressCity/State/ZIP CodePhone Number [facility] * (ABNORMAL) ALL URIC ACID (07/09/2025 2:40 PM EDT)ComponentValueRef RangeTest MethodAnalysis TimePerformed AtPathologist SignatureURIC ACID8.1(H)2.6 - 6.0 mg/dLTBHSpecimen (Source)Anatomical Location / LateralityCollection Method / VolumeCollection TimeReceived Time07/09/2025 2:40 PM EDT10/ 3:28 PM EDT Narrative CLINISYNC - 07/09/2025 4:41 PM EDT Authorizing ProviderResult TypeResult StatusGeneric External Data Provider CLINISYNCFinal ResultPerforming OrganizationAddressCity/State/ZIP CodePhone Number KATHY TB * (ABNORMAL) ALL RENAL FUNCTION PANEL (07/09/2025 2:40 PM EDT)ComponentValueRef RangeTest MethodAnalysis TimePerformed AtPathologist DyrahydlyAABGIZ478233 - 145 mmol/LTBHPOTASSIUM3.2(L)3.5 - 5.1 mmol/PAVWHOSQYUFY20533 - 107 mmol/LTBH CARBON MGDXZLO16.921.0 - 32.0 mmol/LTBHANION GAP16.1FCAWHIRHDN3192 - 106 mg/dL TBHBLOOD UREA FTWBFZIU15.0(H)7.0 - 18.0 mg/dLTBHCREATININE3.20(H)0.55 - 1.02 mg/dLTBHTBH EGFR-AF DEWHGMVM25(L)>=60 mL/min/1.73m 2TBHTBH EGFR-NON AF DAVDEGAS57(L)>=60 mL/min/1.73m 2TBHBUN CREATININE RATIO20.3CXOQWOLHKM2.1(L)8.5 - 10.1 mg/dLTBHPHOSPHORUS4.22.6 - 4.7 mg/dLTBHALBUMIN LEVEL3.1(L)3.4 - 5.0 g/dLTBHSpecimen (Source)Anatomical Location / LateralityCollection Method / VolumeCollection TimeReceived Time07/09/2025 2:40 PM EDT1 3:28 PM EDT Narrative CLINISYNC - 07/09/2025 4:41 PM EDT Authorizing ProviderResult TypeResult StatusGeneric External Data Provider CLINISYNCFinal ResultPerforming OrganizationAddressCity/State/ZIP CodePhone Number KATHY TB * (ABNORMAL) ALL MAGNESIUM (07/09/2025 2:40 PM EDT)ComponentValueRef RangeTest MethodAnalysis TimePerformed AtPathologist SignatureMAGNESIUM0.6(LL)1.8 - 2.4 mg/dLTBHComment:RESULTS CALLED TOSpecimen (Source)Anatomical Location / LateralityCollection Method / VolumeCollection TimeReceived Time07/09/2025 2:40 PM EDT1 3:28 PM EDT Narrative CLINISYNC - 07/09/2025 4:41 PM EDT Authorizing ProviderResult TypeResult StatusGeneric External Data Provider CLINISYNCFinal ResultPerforming OrganizationAddressCity/State/ZIP CodePhone Number KATHY [facility] * (ABNORMAL) ALL FOLIC ACID (07/09/2025 2:40 PM EDT)ComponentValueRef RangeTest MethodAnalysis TimePerformed AtPathologist SignatureFOLATE4.80(L)8.60 - 58.90 ng/mLTBHSpecimen (Source)Anatomical Location / LateralityCollection Method / VolumeCollection TimeReceived Time07/09/2025 2:40 PM EDT1 3:28 PM EDT Narrative CLINISYLA - 07/09/2025 4:27 PM EDT [facility] DROP OFF Authorizing ProviderResult TypeResult StatusGeneric External Data Provider CLINISYNCFinal ResultPerforming OrganizationAddressCity/State/ZIP CodePhone Number KATHY [facility] * (ABNORMAL) Comprehensive metabolic panel (06/27/2025 3:03 PM EDT)Component ValueRef RangeTest MethodAnalysis TimePerformed AtPathologist SignatureGlucose 124(H)65 - 99 mg/dLQUESTComment: ? Fasting reference interval For someone without known diabetes, a glucose value between 100 and 125 mg/dL is consistent with prediabetes and should be confirmed with a follow-up test. BUN72(H)7 - 25 mg/dLQUESTCreatinine3.66(H)0.60 - 1.00 mg/rSKNECWGKFW74(L)> OR = 60 mL/min/1.36c5MZSEXCPX/CREATININE QHJSP952 - 22 (calc)SHMWCAsienk681222 - 146 mmol/LQUESTPotassium, Bld3.3(L)3.5 - 5.3 mmol/KXSRWMKodifjiu21704 - 110 mmol/L QUESTCarbon Bpwbter9049 - 32 mmol/LQUESTCalcium6.6(L)8.6 - 10.4 mg/dLQUEST PROTEIN, TOTAL6.0(L)6.1 - 8.1 g/dLQUESTALBUMIN3.73.6 - 5.1 g/dLQUESTGLOBULIN2.3 1.9 - 3.7 g/dL (calc)QUESTALBUMIN/GLOBULIN RATIO1.61.0 - 2.5 (calc)QUEST BILIRUBIN, TOTAL0.70.2 - 1.2 mg/dLQUESTALKALINE CDQQBKWRNEV58(L)37 - 153 U/L BDYBRQRJ9737 - 35 U/LWADDPWCX37 - 29 U/LQUESTSpecimen (Source)Anatomical Location / LateralityCollection Method / VolumeCollection TimeReceived TimeBlood Venous blood specimen / Boixdpz6806/27/2025 3:03 PM EDT1 3:04 PM EDT Narrative Resulting Agency Comment Performing Organization Information ?Site ID: [id number] ?Name: [facility] ?Address: [address] [place] [id number] ?Director: Figueroa Jacques MD Authorizing ProviderResult TypeResult Status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 [facility] BLOOD ORDERABLESFinal ResultPerforming OrganizationAddressCity/State/ZIP CodePhone Number [facility] * (ABNORMAL) TSH W/REFLEX T4 (06/09/2025 12:41 PM EDT)ComponentValueRef Range Test MethodAnalysis TimePerformed AtPathologist SignatureTSH4.130(H)0.358 - 3.740 uIU/mLTBHSpecimen (Source)Anatomical Location / LateralityCollection Method / VolumeCollection TimeReceived Time06/09/2025 12:41 PM EDT06/09/2025 12:42 PM EDT Narrative CLINISYNC - 06/09/2025 1:32 PM EDT Authorizing ProviderResult TypeResult StatusDaeldon Vogt [facility] BLOOD ORDERABLESFinal ResultPerforming OrganizationAddressCity/State/ZIP CodePhone Number CLINISYNC TBH * (ABNORMAL) [facility] CMP (CMP) (FOR REMOTE [facility] USE) (06/09/2025 12:41 PM EDT) ComponentValueRef RangeTest MethodAnalysis TimePerformed AtPathologist YbbknzqatWEDRHX188666 - 145 mmol/LTBHPOTASSIUM3.0(L)3.5 - 5.1 mmol/LTBH WHUBLRDJ93481 - 107 mmol/LTBHCARBON KHQCSRD02.521.0 - 32.0 mmol/LTBHANION GAP 14.9DJYXSLDNLZ3255 - 106 mg/dLTBHBLOOD UREA VAODQRNK55.0(H)7.0 - 18.0 mg/dLTBH CREATININE3.80(H)0.55 - 1.02 mg/dLTBHTBH EGFR-AF ZCNHFWYK36(L)>=60 mL/min/1.73m 2TBHTBH EGFR-NON AF DYWKERRP96(L)>=60 mL/min/1.73m 2TBHBUN CREATININE RATIO16.2SJAWOGYVAO2.8(L)8.5 - 10.1 mg/dLTBHBILIRUBIN TOTAL0.80.2 - 1.0 mg/dLTBHASPARTATE AMINO JDWOMRFHDTP9317 - 37 U/LTBHALANINE WAISGSLCDPVOFGNG94(L)14 - 59 U/LTBHALKALINE WDBBOZTJLXX86(L)46 - 116 U/LTBH TOTAL PROTEIN7.26.4 - 8.2 g/dLTBHALBUMIN LEVEL3.43.4 - 5.0 g/dLTBHGLOBULIN3.8 g/dLTBHALBUMIN GLOBULIN RATIO0.9TBHSpecimen (Source)Anatomical Location / LateralityCollection Method / VolumeCollection TimeReceived Time06/09/2025 12:41 PM EDT06/09/2025 12:42 PM EDT Narrative CLINISYNC - 06/09/2025 1:32 PM EDT Authorizing ProviderResult TypeResult StatusDanimaricruz Vogt MDCLINISYNCFinal ResultPerforming OrganizationAddressCity/State/ZIP CodePhone Number [facility] * ALL THYROXINE (T4) FREE (06/09/2025 12:41 PM EDT)ComponentValueRef RangeTest MethodAnalysis TimePerformed AtPathologist SignatureFREE [id number] - 1.46 ng/dLTBHSpecimen (Source)Anatomical Location / LateralityCollection Method / VolumeCollection TimeReceived Time06/09/2025 12:41 PM EDT06/09/2025 12:42 PM EDT Narrative CLINISYLA - 06/09/2025 2:01 PM EDT Authorizing ProviderResult TypeResult StatusDanimaricruz Boudreaux Vogt MDCLINISYNCFinal ResultPerforming OrganizationAddressCity/State/ZIP CodePhone Number [facility] * (ABNORMAL) ALL PRO BNP (06/09/2025 12:41 PM EDT)ComponentValueRef RangeTest MethodAnalysis TimePerformed AtPathologist SignatureNT PRO B TYPE NATRIURETIC PEPT18,501.0(HH)<=1,800.0 pg/mLTBHComment:RESULTS CALLED TO CARO ALONZO MA Specimen (Source)Anatomical Location / LateralityCollection Method / Volume Collection TimeReceived Time06/09/2025 12:41 PM EDT06/09/2025 12:42 PM EDT Narrative [facility] - 06/09/2025 1:32 PM EDT Authorizing ProviderResult TypeResult StatusDanimaricruz Vogt MDCLINISYNCFinal ResultPerforming OrganizationAddressCity/State/ZIP CodePhone Number [facility] * (ABNORMAL) ALL CBC WITH AUTO DIFF (06/09/2025 12:41 PM EDT)ComponentValueRef RangeTest MethodAnalysis TimePerformed AtPathologist SignatureTBH WBC2.9(L)4.0 - 11.0 10 3/uLTBHTBH RBC3.39(L)4.20 - 5.40 10 6/uLTBHTBH HGB9.7(L)12.0 - 16.0 g/dLTBHTBH HCT29.3(L)36.0 - 48.0 %TBHTBH MCV86.481.0 - 99.0 fLTBHTBH MCH28.6 26.7 - 34.0 pgTBHTBH MCHC33.129.9 - 35.2 g/dLTBHTBH RDW16.3(H)11.0 - 15.0 %TBH TBH [id number] - 450 10 3/uLTBHTBH MPV11.19.5 - 13.5 [...] StatusDaeldon Vogt MDCLINISYNCFinal ResultPerforming OrganizationAddressCity/State/ZIP CodePhone Number [facility] * POCT Glycated hemoglobin, total (12/12/2024 12:07 PM EDT)ComponentValueRef RangeTest MethodAnalysis TimePerformed AtPathologist SignatureHemoglobin A1C 5.0Specimen (Source)Anatomical Location / LateralityCollection Method / Volume Collection TimeReceived SdwsDuzva73/27/2025 12:07 PM EDT Narrative Authorizing ProviderResult TypeResult StatusJack Vogt MDPOINT OF CARE TEST ENTER/EDIT ORDERABLESFinal Result * MAMMOGRAM* (02/05/2024 1:10 PM EDT)Anatomical RegionLateralityModality Radiographic Imaging Narrative Authorizing ProviderResult TypeResult StatusNoms Provider Unallocated MDIMG XR PROCEDURESFinal Result * (ABNORMAL) Microalbumin / creatinine urine ratio (12/13/2023 11:50 AM EDT) ComponentValueRef RangeTest MethodAnalysis TimePerformed AtPathologist SignatureCREATININE, RANDOM PMNJZ8222 - 275 mg/dLQUESTALBUMIN, URINE36.2See Note: mg/dLQUESTComment: Reference Range: Reference Range Not established Results verified by repeat analysis on dilution. ALBUMIN/CREATININE RATIO, RANDOM FQEFB621(H)<30 mg/g creatQUESTComment: The ADA defines abnormalities in [...] specimen obtained by clean catch procedure / Ridlkzh4712/13/2023 11:50 AM EDT12/13/2023 11:50 AM EDT Narrative [facility] - 12/14/2023 1:50 PM EDT FASTING:NO FASTING: NO Resulting Agency Comment Performing Organization Information ?Site ID: [id number] ?Name: [facility] ?Address: [address] [place] [address], [address] [place] [id number] ?Director: Figueroa Jacques MD Authorizing ProviderResult TypeResult StatusDaeldon SYLVESTER URINE ORDERABLESFinal ResultPerforming OrganizationAddressCity/[facility] CodePhone Number [facility] * Color Fundus Photography - OU - Both Eyes (11/18/2022 12:00 PM EST)Anatomical RegionLateralityModalityHeadFundus PhotographySpecimen (Source)Anatomical Location / LateralityCollection Method / VolumeCollection TimeReceived Time 11/18/2022 12:00 PM EST Narrative 11/18/2022 12:00 PM EST PERFORMED AT [facility] LOCATION:[id number] [facility] Procedure Note CONVERSION, GENERIC - 02/02/2023 PERFORMED AT [facility] LOCATION:[id number] [facility] Authorizing ProviderResult TypeResult StatusJack Vogt MDOPHTH PHOTOGRAPHY Final Result * Colonoscopy (03/17/2021 12:00 PM EDT)Anatomical RegionLateralityModality EndoscopySpecimen (Source)Anatomical Location / LateralityCollection Method / VolumeCollection TimeReceived Time03/17/2021 12:00 PM EDT Narrative 03/17/2021 12:00 PM EDT PERFORMED AT [facility] LOCATION:[id number] polyp- Procedure Note CONVERSION, GENERIC - 02/01/2023 PERFORMED AT [facility] LOCATION:[id number] polyp- Authorizing ProviderResult TypeResult StatusDanimaricruz Vogt MDENDOSCOPY PROCEDURE ORDERABLESFinal Result from Last 3 Months or Most Recently Relevant to Health Maintenance Additional Health Concerns Active ProblemsNoted DateDiagnosed DatePatient on antidepressant monitoring plan 02/25/2025 Insurance Care Teams Team MemberRelationshipSpecialtyStart DateEnd Jack Vogt MD [address] [facility] [address] [place] [address] PCP - GeneralInternal Medicine01/24/23 Chantelle Recio LSW [address] [place] [address] Social WorkerFamily Medicine06/10/25 Valerie Go, DEBORA [address] [place] [address] Registered NurseFamily Fhfnvube07/13/25
--- OUTSIDE RECORDS SUMMARY | 2025-07-09 20:14 | XMS_ITS | Clinical Summary ---
Author Organization [facility] Address [address], [address] [place] [address] Care Team Providers Care Newspaper Clipper Name Role Phone Jack Vogt MD Primary Care Provider [phone] Allergies Active AllergyReactionsCriticalityNoted DateCommentsIodineAnaphylaxisHigh Hives, and anaphylactic reaction XjkxhiWddhhhngnjBecasv32/17/2018 skin irritation and itching with jewelry worn Shellfish Protein-Containing Drug InurnfaeMqzlwzvehvySgbv84/17/2018Simvastatin Other (See Comments) Medications MedicationSigDispense QuantityRefillsLast FilledStart DateEnd DateStatus aspirin 81 MG tablet Take 81 mg by mouth dailyActive amLODIPine (NORVASC) 10 MG tablet Take 10 mg by mouth dailyActive zolpidem (AMBIEN) 10 MG tablet Take 10 mg by mouth nightly..02/27/2018Active valsartan (DIOVAN) 320 MG tablet Take 320 mg by mouth iazrk084Active tiZANidine (ZANAFLEX) 4 MG tablet Take 4 mg by mouth 2 times oadqf233Active LYRICA 75 MG capsule Take 75 mg by mouth daily..Active pantoprazole (PROTONIX) 40 MG tablet Take 40 mg by mouth jwzvs159Active NIFEdipine (PROCARDIA XL) 90 MG extended release tablet Indications:dose recently upped to 120mgTake 120 mg by mouth daily02/26/2018 Active isosorbide mononitrate (IMDUR) 60 MG extended release tablet Take 60 mg by mouth daily03/19/2018Active fenofibrate (TRICOR) 145 MG tablet Take 145 mg by mouth bkjnp329Active nitroGLYCERIN (NITROSTAT) 0.4 MG SL tablet Take [...] Active Problems ProblemNoted DateDiagnosed DateSpondylolisthesis of lumbar eycens6206/04/2018 Cardiovascular stress test yvbwldpv62/05/2018Carotid artery nyhyrjyv12/05/2018 Chest pain05/23/2018Coronary zqayajeserderezx83/05/1770Stbqvcratkdnu84/05/2018 Tsdgpjybeuvqtx63/05/2018Hypertensive bxebsbuj82/05/2778Xlzhkkboffqpyw03/05/2018 Peripheral vascular uqrqssp5405/23/2018Spondylolisthesis of lumbosacral region 05/23/2018 Family History Medical [...] Date RecordedSex Assigned at BirthNot on fileLegal KszCwnjzf17/10/2013 1:14 PM ESTGender IdentityNot on fileSexual OrientationNot on file Last Filed Vital Signs Vital SignReadingTime TakenCommentsBlood Bybkrqfs555/4109 7:23 AM EDT Jiuef2549 7:23 AM FAEYymilnpzxfm69.7 ??C (98 ??F)06/28/2019 10:26 AM EDT Respiratory Vepz711806/06/2018 10:48 PM EDTOxygen Jwuglihqzy27%06/07/2018 7:23 AM EDTInhaled Oxygen Concentration--Pbqhav62.2 kg (190 lb)06/28/2019 10:26 AM EDT Lfnkir043 cm (5' 3 )06/28/2019 10:26 AM EDTBody Mass Index33.6606/28/2019 10:26 AM EDT Plan of Treatment Not on file Medical Devices ImplantedTypeAreaManufacturerDevice IdentifierShelf Expiration DateModel / Serial / LotGraft Canc Chip 30cc 1.3nk20ry - [id number] Implanted:Qty: 1 on 06/04/2018 by Per Barber MD at [facility] Bone/Graft/Tissue/Human/SynthN/A: Spine LumbarMUSCULOSKELETAL TRANSPLANT FND-PMM 04/02/[id number] / [id number] / Kit Sealant Surgiflo Hemostatic Matrix - [id number] Implanted:Qty: 1 on 06/04/2018 by Per Barber MD at [facility] Bone/Graft/Tissue/Human/SynthN/A: Spine LumbarJNJ: DEPUY ORTHOPAEDICS-PMM 04/17/[id number] / [id number] / Kit Sealant Surgiflo Hemostatic Matrix Implanted:Qty: 1 on 06/04/2018 by Per Barber MD at [facility] Bone/Graft/Tissue/Human/SynthN/A: Spine LumbarJNJ: DEPUY ORTHOPAEDICS-PMM 01/15/[id number] / / [id number] Polyaxial Reline-O 2s 6.5x55mm Implanted:Qty: 3 on 06/04/2018 by Per Barber MD at [facility] Screw/Plate/Nail/RodN/A: Spine LumbarNUVASIVE INC-[id number] / / Screw Polyaxial Reline-O 6.5x50mm Implanted:Qty: 1 on 06/04/2018 by Per Barber MD at [facility] Screw/Plate/Nail/RodN/A: Spine LumbarNUVASIVE INC-[id number] / / Wally-Cellular Bone Matrix 10cc - [id number] Implanted:Qty: 1 on 06/04/2018 by Per Barber MD at [facility] SpineN/A: Spine LumbarNUVASIVE INC-PMM01/20/[id number] / [id number] / Screw Lk Reline Opn Tulip 5.5mm Implanted:Qty: 6 on 06/04/2018 by Per Barber MD at [facility] SpineN/A: Spine LumbarNUVASIVE INC-[id number] / / Impl Spine Coroent Mp Lg [id number] 4deg Implanted:Qty: 2 on 06/04/2018 by Per Barber MD at [facility] SpineN/A: Spine LumbarNUVASIVE INC-[id number] / / Impl Spine Emmanuel Reline-O Lrdtc 5.5x70mm Implanted:Qty: 2 on 06/04/2018 by Per Barber MD at [facility] SpineN/A: Spine LumbarNUVASIVE INC-[id number] / / Reline Reduction Screw Implanted:Qty: 2 on 06/04/2018 by Per Barber MD at [facility] N/A: Spine Lumbar Insurance Advance Directives * Full Code (Latest Code Status on File) Date ActivatedDate InactivatedComments06/04/2018 6:16 PM06/07/2018 7:05 PM Care Teams Team MemberRelationshipSpecialtyStart DateEnd Date Jack Vogt MD [address] [place] [address] PCP - GeneralInternal Medicine03/13/18
[2025-07-09 20:20] VITALS: BP 145/67; PULSE 67; TEMP 36.7; O2SAT 99; BMI 22.9
--- NOTE | 2025-07-09 20:32 | ECG_ITS ---
[facility] Test Date: 2025-07-09 Pat Name: LUPE NGUYEN Department: Room: - Gender: Female Tonsorial Artist: : 1950 Requested By: [id number] Order Number: [id number] Reading MD: SACHIN MATTHEWS M.D. Measurements Intervals [place] Rate: 60 P: 76 DC: 178 QRS: 112 QRSD: 102 T: 150 QT: 436 QTc: 438 Interpretive Statements 1100 Sinus rhythm 4068 Nonspecific Twave abnormality 5120 Possible right ventricular hypertrophy 9130 borderline ECG Compared to ECG 03/12/2025 16:18:30 Sinus tachycardia no longer present Electronically Signed On 07-09-2025 23:54:42 EDT by SACHIN MATTHEWS M.D.
--- NOTE | 2025-07-09 20:33 | ED.RECABL1 ---
HPI - Recheck/Abnormal Lab/Rx General Chief Complaint: Recheck/Abnormal Lab/Rx Stated Complaint: ABNORMAL LABS Time Seen by Provider: 07/09/25 20:27 Source: patient Mode of arrival: Wheelchair Limitations: no limitations History of Present Illness HPI narrative: With 74-year-old female with a history of chronic renal disease was referred to the emergency department by her complaint inspector for low magnesium. She had routine blood work done today and her magnesium is 0.6. The patient states she was recently put on some diuretics for lower extremity swelling but otherwise her medications have not changed. She denies any chest pain or shortness of breath. She states she generally just feels fatigued. She has had diarrhea for the past several months. She denies any abdominal pain or fever. Related Data Home Medications ?Medication ?Instructions ?Recorded ?Confirmed apixaban 2.5 mg tablet (Eliquis) 2.5 mg PO Q12H 09/18/23 03/12/25 duloxetine 30 mg capsule,delayed 30 mg PO QDAY 09/18/23 03/12/25 release ezetimibe 10 mg tablet 10 mg PO QDAY 09/18/23 03/12/25 fenofibrate nanocrystallized 145 145 mg PO QDAY 09/18/23 03/12/25 mg tablet hydralazine 25 mg tablet 50 mg PO TID 09/18/23 03/12/25 isosorbide mononitrate 60 mg 60 mg PO QDAY 09/18/23 03/12/25 tablet,extended release 24 hr pantoprazole 40 mg tablet,delayed 40 mg PO QDAY 09/18/23 03/12/25 release valsartan 320 mg tablet 320 mg PO QDAY 09/18/23 03/12/25 zolpidem 10 mg tablet 10 mg PO .QHS PRN sleep 09/18/23 03/12/25 bupropion HCl 75 mg tablet 75 mg PO DAILY 03/12/25 03/12/25 nitroglycerin 0.4 mg sublingual 0.4 mg sublingual Q5M PRN chest 03/12/25 03/12/25 tablet pain Previous Rx's ?Medication ?Instructions ?Recorded metoprolol tartrate 75 mg tablet 75 mg PO BID #60 tabs 09/20/23 Allergies Allergy/AdvReac Type Severity Reaction Status Date / Time iodine Allergy Anaphylaxis Verified 07/09/25 20:20 Review of Systems ROS Status of ROS 10 or more systems reviewed and unremarkable except as noted in history and [facility] History (Updated 07/09/25 @ 22:03 by Isabel Jones MD) Chronic heart failure with preserved ejection fraction (HFpEF) ?I50.32 - Chronic diastolic (congestive) heart failure (ICD-10) Stage 3b chronic kidney disease (CKD) ?N18.32 - Chronic kidney disease, stage 3b (ICD-10) CAD (coronary artery disease) ?I25.10 - Atherosclerotic heart disease of knik coronary artery without angina pectoris (ICD-10) History of pulmonary embolism ?Z86.711 - Personal history of pulmonary embolism (ICD-10) Hypertension ?I10 - Essential (primary) hypertension (ICD-10) PVD (peripheral vascular disease) ?I73.9 - Peripheral vascular disease, unspecified (ICD-10) High cholesterol ?E78.00 - Pure hypercholesterolemia, unspecified (ICD-10) DVT (deep venous thrombosis) ?I82.409 - Acute embolism and thrombosis of unspecified deep veins of unspecified lower extremity (ICD-10) Pulmonary air embolism ?T79.0XXA - Air embolism (traumatic), initial encounter (ICD-10) CHF (congestive heart failure) ?I50.9 - Heart failure, unspecified (ICD-10) 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 ?I70.201 - Unspecified atherosclerosis of knik arteries of extremities, right leg (ICD-10) Stenosis of artery of left lower extremity ?I70.202 - Unspecified atherosclerosis of knik arteries of extremities, left leg (ICD-10) Fibromyalgia ?M79.7 - Fibromyalgia (ICD-10) Osteoporosis ?M81.0 - Age-related osteoporosis without current pathological fracture (ICD-10) Osteoarthritis ?M19.90 - Unspecified osteoarthritis, unspecified site (ICD-10) Heart attack ?I21.9 - Acute myocardial infarction, unspecified (ICD-10) Surgical History (Updated 03/12/25 @ 23:46 by Rama Newman RN) Hx of CABG ?Z95.1 - Presence of aortocoronary bypass graft (ICD-10) H/O colectomy ?Z90.49 - Acquired absence of other specified parts of digestive tract (ICD-10) Family History (Updated 09/19/23 @ 00:15 by Divya Mendoza) Father Family history of myocardial infarction Family history of hypertension Mother Family history of myocardial infarction Family history of stroke Family history of hypertension Brother Family history of hypertension Family history of cancer Sister Family history of cancer Social History (Updated 09/19/23 @ 00:19 by Divya Mendoza) Smoking status: Current every day smoker Second hand tobacco smoke exposure: No Non-prescribed substance use: cannabis (any form) Previous occupational history: retired Known occupational exposures/hazards: No Highest level of school completed/degree received: some college, no degree Do you want help with school or training: No Are you now , , , , never or living with a partner: In a typical week, how many times do you talk on the telephone with family, friends, or neighbors: 3 or more times per week How often do you get together with friends or relatives: 3 or more times per week How often do you attend restoration or buddhist services: never Do you belong to any clubs or organizations such as restoration groups unions, fraMembersuite or athletic groups, or school groups: no Total score: 1 Score interpretation: A score of less than or equal to 1 indicates the most socially isolated. Little interest or pleasure in doing things: not at all Feeling down, depressed, or hopeless: not at all Feel stressed/tense/nervous/anxious/difficulty sleeping: to some extent Life stressors: unknown source of stress Due to disability, difficulty making decisions: No Do you think of yourself as: straight/heterosexual Gender Identity: female Exam Narrative Exam Narrative: Vital signs and Nursing Notes reviewed: Patient is afebrile with normal pulse, blood pressure is mildly elevated at 145/67, she is not hypoxic with pulse ox of 99% on room air General: Awake, alert, oriented, no acute distress, lying comfortably on the stretcher HEENT: Normocephalic atraumatic, mucous membranes are moist and pink, eyes are clear, normal conjunctiva, vision is grossly intact Neck: Supple, no JVD Chest: Lungs are clear to auscultation with good air entry, there is no wheezing rhonchi or rales appreciated no accessory muscle use, patient is speaking in complete sentences-no chest wall tenderness to palpation CVS: Regular rate and rhythm S1-S2, no murmurs rubs or gallops, pulses are brisk and equal bilaterally ABD: Soft, nondistended, nontender, no rebound guarding or rigidity, bowel sounds are normal Extremities: Moving all extremities, 2-3+ pitting edema of the feet and ankles bilaterally-patient states this is better than usual for her Skin: Normal in appearance without rash,pallor, petechiae or purpura Neuro: No focal deficits Constitutional Vital Signs, click to edit/add: Last Vital Signs Temp 98.0 F 07/09/25 20:20 Pulse 72 07/09/25 21:49 Resp 19 07/09/25 21:49 BP 166/70 H 07/09/25 21:49 Pulse Ox 94 L 07/09/25 21:49 O2 Del Method Room Air 07/09/25 20:20 Course Vital Signs Vital signs: Vital Signs Temperature 98.0 F 07/09/25 20:20 Pulse Rate 67 07/09/25 20:20 Respiratory Rate 19 07/09/25 20:20 Blood Pressure 145/67 H 07/09/25 20:20 Pulse Oximetry 99 07/09/25 20:20 Oxygen Delivery Method Room Air 07/09/25 20:20 Temperature 98.0 F 07/09/25 20:20 Pulse Rate 72 07/09/25 21:49 Respiratory Rate 19 07/09/25 21:49 Blood Pressure 166/70 H 07/09/25 21:49 Pulse Oximetry 94 L 07/09/25 21:49 Oxygen Delivery Method Room Air 07/09/25 20:20 MDM - Recheck/Abnormal Lab/Rx MDM Narrative Medical decision making narrative: This 74-year-old female with a history of chronic renal disease was referred to the emergency department for evaluation of hypomagnesemia. She had routine blood work done today and her magnesium was 0.6. The patient does not have any complaints besides generalized fatigue. She has had chronic diarrhea for the past several months. She was recently placed on a diuretic for lower extremity swelling. An IV was placed and an EKG was ordered. EKG is a sinus rhythm at 60 bpm with no acute changes. Routine labs were repeated. Her magnesium is again 0.6. Potassium was 3.2. Kidney function is unchanged. Calcium was also low at 6.3. She was given 1000 mg of calcium gluconate and 2 g of IV magnesium. She remains hemodynamically stable. She did not have any untoward reaction to the medications. She will be discharged home at this time with a prescription for Mag-Ox 400 mg to use on a daily basis. She states she has calcium at home that she will start taking. Medical Records Attestation: I reviewed the patient's medical records. Lab Data Attestation: I reviewed the patient's lab results. Labs: Lab Results 07/09/25 Range/Units 20:50 Sodium 138 (136-145) mmol/L Potassium 3.2 L (3.5-5.1) mmol/L Chloride 101 (98-107) mmol/L Carbon Dioxide 24.7 (21.0-32.0) mmol/L Anion Gap 15.5 BUN 65.0 H (7.0-18.0) mg/dL Creatinine 3.21 H (0.55-1.02) mg/dL Est GFR ( Amer) 17 L (>=60 mL/min/1.73m^2) Est GFR (Non-Af Amer) 14 L (>=60 mL/min/1.73m^2) BUN/Creatinine Ratio 20.2 Glucose 128 H (74-106) mg/dL Calcium 6.3 L (8.5-10.1) mg/dL Magnesium 0.6 L* (1.8-2.4) mg/dL ECG Data Attestation: I personally reviewed and interpreted this ECG as follows: (Sinus rhythm at 60 bpm, nonspecific ST changes, possible right ventricular hypertrophy, no acute ST segment elevation or T wave inversion) Discharge Plan Discharge Chief Complaint: Recheck/Abnormal Lab/Rx Clinical Impression: Hypomagnesemia, Hypocalcemia, Chronic kidney disease Patient Disposition: Home, Self-Care Time of Disposition Decision: 22:03 Condition: Good Prescriptions / Home Meds: No Action bupropion HCl 75 mg tablet 75 mg PO DAILY nitroglycerin 0.4 mg tablet, sublingual 0.4 mg sublingual Q5M PRN (Reason: chest pain) hydralazine 25 mg tablet 50 mg PO TID Rx Instructions: LAST FILLED PER REFILL HX ON 07/21/2023 FOR #270 FOR 90 DAYS. TAKE MORNING, AT NOON AND AT BEDTIME isosorbide mononitrate 60 mg tablet extended release 24 hr 60 mg PO QDAY pantoprazole 40 mg tablet,delayed release (DR/EC) 40 mg PO QDAY valsartan 320 mg tablet 320 mg PO QDAY zolpidem 10 mg tablet 10 mg PO .QHS PRN (Reason: sleep) ezetimibe 10 mg tablet 10 mg PO QDAY duloxetine 30 mg capsule,delayed release(DR/EC) 30 mg PO QDAY Rx Instructions: WITH 60MG TO TOTAL 90MG DAILY fenofibrate nanocrystallized 145 mg tablet 145 mg PO QDAY Eliquis 2.5 mg tablet 2.5 mg PO Q12H metoprolol tartrate 75 mg tablet 75 mg PO BID Qty: 60 0RF Print Language: Sami Instructions: Chronic Kidney Disease (ED), Hypocalcemia (ED), Hypomagnesemia (ED) Referrals: ROMARIO SORENSEN [Primary Care Provider, Internal Medicine] - 1 week
[2025-07-09] MEDS: MAGNESIUM SULFATE IN WATER 2 GM/50 ML PREMIX IV (20:58)
[2025-07-09 21:05] LABS: Anion Gap 15.5; Blood Urea Nitrogen 65.0 mg/dL (7.0-18.0); Calcium 6.3 mg/dL (8.5-10.1); Carbon Dioxide 24.7 mmol/L (21.0-32.0); Chloride 101 mmol/L (98-107); Estimated GFR (African America 17 (>=60 mL/min/1.73m^2); Estimated GFR (Non-African Ame 14 (>=60 mL/min/1.73m^2); Glucose 128 mg/dL (74-106); Sodium 138 mmol/L (136-145)
[2025-07-09 21:06] LABS: Potassium 3.2 mmol/L (3.5-5.1)
[2025-07-09 21:21] LABS: Magnesium 0.6 mg/dL (1.8-2.4)
[2025-07-09] MEDS: CALCIUM GLUCONATE 1,000 MG/10 ML VIAL 1000 MG IVP (21:44)
[2025-07-09 21:49] VITALS: BP 166/70; PULSE 72; O2SAT 94
--- NOTE | 2025-07-09 22:19 | PC.NURSE ---
i gave this patient verbal and written discharge orders along with 1Rx and this patient voices yes to understanding these. at time of discharge this patient voices no concerns, needs and this patient shows no signs of distress
--- OUTSIDE RECORDS SUMMARY | 2025-08-29 20:00 | XMS_ITS | Clinical Summary ---
Author Organization Unknown Care Team Providers Care Copper Plater Name Role Phone FRANCHESCA BEAULIEU, ROMARIO Unavailable Unavailable TASHA RN, BRANDON Unavailable Unavailable WILMER DIRECTOR [facility], DON Unavailable Unavailable COPJOSI ADÁN, YAW Unavailable Unavailable GOSCHE OT, PROSPER Unavailable Unavailable KOHLENBERG DIRECTOR [facility], GABRIELLA Unavailable Unavailabl e POP PT, NICOLLE Unavailable Unavailable VIVIAN MCCAIN, NGOC Unavailable Unavailbettye WAYNE RN, ROQUE Unavailable Unavailbettye ZAZUETA RN, VIKRAM Unavailable Unavailable COY RN, SUSIE Unavailable Unavailable KRISTY DIRECTOR [facility], LOUISA Unavailable Unavailable SHAFER DIRECTOR [facility], MYA Unavailable Unavailabl e Payers Payer Name Policy Type Policy Number Effective Date Expira tion Date [facility] (FFS) [id number] Problems Condition Name Condition Details Condition Category Status Onset Date Resolution Date Last Treatment Date Treating Clinician Comments FIBROMYALGIA Eewtvp0508-74-74 00:00:00HYP HRT AND CHR KDNY DIS W HRT FAIL AND STG 1-4/UNSP CHR QVPRIxexbt1533-30-48 00:00:00CHRONIC DIASTOLIC (CONGESTIVE) HEART FAILURE Qxqarp6813-06-94 00:00: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 RIXTWWKMkzoht9522-20-35 00:00:00CHRONIC KIDNEY DISEASE, STAGE 4 (SEVERE)Active 2025-07-02 00:00: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 Thvfwj5560-99-63 00:00:00PRIMARY GENERALIZED (OSTEO)OBMRSBGMSHrjgvs0154-57-38 00:00:00ANXIETY DISORDER, LQKEODDZTNGBwpnwe0378-78-06 00:00:00DEPRESSION, JVQEYORNANOByxqpe1469-23-91 00:00:00SOLITARY PULMONARY SWXDGFWdrqlh5966-20-21 00:00:00RADICULOPATHY, LUMBAR VAPGLKPaeyhd4807-59-73 00:00:00SPINAL STENOSIS, LUMBAR REGION WITH NEUROGENIC PZYKOMQNXSWRPyhiur1730-10-97 00:00:00 SPONDYLOLISTHESIS, LUMBAR RYBXNWYlraag4151-91-68 00:00:00OLD MYOCARDIAL JXJOCIMGNUDgvxev5629-43-87 00:00:00ACUTE KIDNEY FAILURE, UNSPECIFIEDActive 2025-07-02 00:00:00MIXED FNFIOMUSMGAJUVUkutfa5972-71-03 00:00:00OBESITY, NGPHZRROQHLGsjonb3338-10-69 00:00:00INSOMNIA, HZRVYWCLJTIPdgzkh3392-54-14 00:00:00UNSPECIFIED SEVERE PROTEIN-CALORIE FODQJHULGGMXQscflo3753-18-04 00:00:00 GASTRO-ESOPHAGEAL REFLUX DISEASE WITHOUT ZWVLCVKNAZIKzfqse4513-75-59 00:00:00 UXANKYGXYXDTKRLvgvcz6116-32-97 00:00:00OBSTRUCTIVE SLEEP APNEA (ADULT) (PEDIATRIC)Geumsx2770-79-45 00:00: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 Ordering Clinician Indication Dosage Frequency Signature (SIG) Comments Components Ambien 5 mg tablet 2025-03-13 00:00:[id number] tabletBEDTIME1 tablet BEDTIME (route: oral)Med Classification: Central Nervous System AgentsAspirin Childrens 81 mg chewable jrugmw2355-63-63 00:00:002356-49-53 23:59:[id number] ANTIPLATELET1 tabletDAILY1 tablet DAILY (route: oral)Med Classification: Hematological AgentsCardura 2 mg gmbstd3607-70-42 00:00:[id number] HYPERTENSION1 tabletDAILY1 tablet DAILY (route: oral)Med Classification: Cardiovascular Therapy Agentsclonidine HCl 0.1 mg hdjhwb3557-84-99 00:00:00Yes [id number] tabletDAILY1 tablet DAILY (route: oral)Med Classification: Cardiovascular Therapy AgentsCoreg 25 mg jqpwte4241-16-16 00:00:[id number] HTN1 tabletEVERY 12 HOURS1 tablet EVERY 12 HOURS (route: oral)Med Classification: Cardiovascular Therapy AgentsEliquis 2.5 mg gjrffx8405-99-67 00:00:618794-49-99 23:59:[id number] THINNER2 tabletEVERY 12 HOURS2 tablet EVERY 12 HOURS (route: oral)Med Classification: Hematological Agents fenofibrate 160 mg sglyjl4866-35-76 00:00:[id number] tablet DAILY1 tablet DAILY (route: oral)Med Classification: Cardiovascular Therapy Agentshydralazine 100 mg latrsj9804-03-60 00:00:[id number] tabletEVERY 8 HOURS1 tablet EVERY 8 HOURS (route: oral)Med Classification: Cardiovascular Therapy AgentsLexapro 5 mg nvkwrm7688-04-01 00:00:[id number] DEPRESSION1 tabletDAILY1 tablet DAILY (route: oral)Med Classification: Central Nervous System Agentsmelatonin 5 mg eloqpvh7772-26-88 00:00:238050-49-63 23:59:[id number] capsuleBEDTIME1 capsule BEDTIME (route: oral) Med Classification: Central Nervous System AgentsProcardia XL 90 mg tablet,extended gogzwxn6136-97-63 00:00:[id number] tabletEVERY 12 HOURS1 tablet EVERY 12 HOURS (route: oral)Med Classification: Cardiovascular Therapy AgentsProtonix 40 mg tablet,delayed cbgzzjn3371-25-14 00:00:00Yes [id number] tabletDAILY1 tablet DAILY (route: oral)Med Classification: Gastrointestinal Therapy AgentsTums 200 mg (as calcium carbonate 500 mg) chewable ldbovx3395-38-32 00:00:[id number] STOMACH2 tabletAS NEEDED2 tablet NEEDED (route: oral)Med Classification: Gastrointestinal Therapy AgentsZetia 10 mg isjiqh0468-51-99 00:00:[id number] tablet DAILY1 tablet DAILY (route: oral)Med Classification: Cardiovascular Therapy Agentstramadol 50 mg ggnerq8694-42-46 00:00:09Ofa3857003918go needed for severe pain50 mg3 TIMES DAILY50 mg 3 TIMES DAILY (route: oral)Med Classification: Analgesic, Anti-inflammatory or Antipyreticondansetron HCl 4 mg rckftz4953-95-78 00:00:344690-24-55 23:59:[id number] AND/OR VOMITING1 tabletEVERY 8 HOURS1 tablet EVERY 8 HOURS (route: oral)Med Classification: Gastrointestinal Therapy Agentsaspirin 81 mg ldklsz3298-65-56 00:00:[id number] tablet DAILY1 tablet DAILY (route: oral)Med Classification: Hematological AgentsEliquis 2.5 mg zsmhnl8544-42-03 00:00:[id number] THINNER1 tablet2 TIMES DAILY1 tablet 2 TIMES DAILY (route: oral)Med Classification: Hematological Agents isosorbide mononitrate ER 30 mg tablet,extended release 24 qu1821-57-36 00:00:00 [id number] tabletDAILY1 tablet DAILY (route: oral)Med Classification: Cardiovascular Therapy Agentsspironolactone 25 mg dmmznq6537-32-48 00:00:00Yes [id number] tabletDAILY1 tablet DAILY (route: oral)Med Classification: Cardiovascular Therapy AgentsTylenol PM Extra Strength 25 mg-500 mg tablet 2025-07-02 00:00:[id number] NEEDED FOR SLEEP1 tabletBEDTIME1 tablet BEDTIME (route: oral)Med Classification: Analgesic, Anti-inflammatory or AntipyreticLasix 40 mg ecwapc6516-91-42 00:00:[id number] tablet2 TIMES DAILY1 tablet 2 TIMES DAILY (route: oral)Med Classification: Cardiovascular Therapy AgentsImodium Multi-Symptom Relief 2 mg-125 mg tablet 2025-07-08 00:00:[id number] BOWEL MOVEMENTSPer instructionsAS NEEDEDPer instructions NEEDED (route: oral)Med Classification: Gastrointestinal Therapy Agents Vital Signs Vital Name Observation Time Observation Value Commen ts Temperature 2025-07-08 13:44:00.000 97.4 [degF] Xzlrwjfbrko2059-75-59 12:51:00.89321 [degF]Jwqfvboynif6515-20-12 12:52:00.000 96.2 [degF]Hchutjyrpoj3438-75-73 14:41:00.35043.5 [degF]BMI (%)2025-07-02 14:41:00.33169 kg/y3Gmswab1252-27-68 14:41:00.07547 [in_us]Nllkf0820-25-01 13:44:00.77470 /xwgWmhvb7300-09-88 12:51:00.00834 /ezhKbdlj4931-52-35 12:52:00.86395 /yklLtdgi7680-69-88 14:41:00.97274 /minO2 Saturation (%) 2025-07-08 13:44:00.42412 %O2 Saturation (%)2025-07-08 12:51:00.03189 %O2 Saturation (%)2025-07-03 12:52:00.54211 %O2 Saturation (%)2025-07-02 14:41:00.22591 %Yewfqnqxuksq4132-03-76 13:44:00.30784 /adzFwcyfqlsekmc9552-25-44 12:51:00.43777 /uwiOzpbtocyilnf5252-55-46 12:52:00.81115 /minRespirations 2025-07-02 14:41:00.89077 /minWeight (lbs)2025-07-02 14:41:00.074838 [lb_av] Systolic Blood Yxhvmurt4415-62-64 13:44:00.247937 mm[Hg]Systolic Blood Pressure 2025-07-08 13:04:00.559339 mm[Hg]Systolic Blood Gcdiiajl3829-41-76 12:51:00.000 168 mm[Hg]Systolic Blood Xcsoalbb1625-96-16 12:52:00.797126 mm[Hg]Systolic Blood Cotqgsso6878-85-49 14:41:00.354598 mm[Hg]Diastolic Blood Yahqpoex0649-41-89 13:44:00.40000 mm[Hg]Diastolic Blood Rxtyyhvv2710-13-22 13:04:00.13774 mm[Hg] Diastolic Blood Saniunqa9708-47-62 12:51:00.82943 mm[Hg]Diastolic Blood Pressure 2025-07-03 12:52:00.82348 mm[Hg]Diastolic Blood Vqetirck5728-78-73 14:41:00.000 64 mm[Hg] Plan of Treatment Planned [...] CHANGE IN CONDITION (SCIC)AND DISCHARGE. [facility] [employer] MACHINE OPERATOR MAY PROVIDE CARE RECOMMENDATIONS NEEDED ON NEW,EXISTING [...] IN CONDITION (SCIC) AND DISCHARGE. [facility] [employer] MACHINE OPERATOR MAY PROVIDE CARE RECOMMENDATIONS NEEDED ON NEW, [...] End Date/Time Encounter Type Admission Type Attending [facility] Facility Care Department Encounter ID Discharge Date Discharge Status Discharge Condition Discharge Reason Percent Goals Met 2025-07-02 00:00:00 2025-08-30 00:00:00 Outpatient [facility] [id number]
--- OUTSIDE RECORDS SUMMARY | 2025-08-29 20:00 | XMS_ITS | Clinical Summary ---
Author Organization Unknown Care Team Providers Care Office Technician Name Role Phone FRANCHESCA BEAULIEU, ROMARIO Unavailable Unavailable TASHA RN, BRANDON Unavailable Unavailable WILMER LINOTYPIST, DON Unavailable Unavailable COPJOSI ADÁN, YAW Unavailable Unavailable GOSCHE OT, PROSPER Unavailable Unavailable KOHLENBERG LINOTYPIST, GABRIELLA Unavailable Unavailabl e POP PT, NICOLLE Unavailable Unavailable VIVIAN MCCAIN, NGOC Unavailable Unavailbettye WAYNE RN, ROQUE Unavailable Unavailbettye ZAZUETA RN, VIKRAM Unavailable Unavailable COY RN, SUSIE Unavailable Unavailable KRISTY LINOTYPIST, LOUISA Unavailable Unavailable SHAFER LINOTYPIST, MYA Unavailable Unavailabl e Payers Payer Name Policy Type Policy Number Effective Date Expira tion Date [facility] (FFS) [id number] Problems Condition Name Condition Details Condition Category Status Onset Date Resolution Date Last Treatment Date Treating Clinician Comments FIBROMYALGIA Wskmgi8180-76-65 00:00:00HYP HRT AND CHR KDNY DIS W HRT FAIL AND STG 1-4/UNSP CHR QUNXPlegwy2092-02-57 00:00:00CHRONIC DIASTOLIC (CONGESTIVE) HEART FAILURE Vcjwyt7627-35-00 00:00: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 QFAMLPKTdfpao4480-16-17 00:00:00CHRONIC KIDNEY DISEASE, STAGE 4 (SEVERE)Active 2025-07-02 00:00: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 Ksdoxe4866-02-52 00:00:00PRIMARY GENERALIZED (OSTEO)LKVFYBWRVRtpbfz7692-37-52 00:00:00ANXIETY DISORDER, NGRDHMRUHJCOdisnm8121-72-39 00:00:00DEPRESSION, DRHCEWIXRLNVexzmy8359-79-34 00:00:00SOLITARY PULMONARY DNMTUFFoogvh7233-52-96 00:00:00RADICULOPATHY, LUMBAR SWTTVVMknspd9273-90-38 00:00:00SPINAL STENOSIS, LUMBAR REGION WITH NEUROGENIC UUWEVMDUZPDOXgreyx6073-77-76 00:00:00 SPONDYLOLISTHESIS, LUMBAR IAUEZNNijbig4701-04-51 00:00:00OLD MYOCARDIAL OCDCMTMMZKAfrumq1305-36-52 00:00:00ACUTE KIDNEY FAILURE, UNSPECIFIEDActive 2025-07-02 00:00:00MIXED IRMNSTSFXXJZJPUtgcuo8961-30-83 00:00:00OBESITY, CXGBMHUOPTBBrljse7782-41-23 00:00:00INSOMNIA, SUGASTBGJUUDxgugu6175-93-79 00:00:00UNSPECIFIED SEVERE PROTEIN-CALORIE WFYICVYBMUKDLeccka7505-32-86 00:00:00 GASTRO-ESOPHAGEAL REFLUX DISEASE WITHOUT EUAESSZKCSYVbqfkz1258-15-50 00:00:00 EWBISBDYRMZKXGUwilag9641-05-89 00:00:00OBSTRUCTIVE SLEEP APNEA (ADULT) (PEDIATRIC)Opjvld8888-57-64 00:00: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 Ordering Clinician Indication Dosage Frequency Signature (SIG) Comments Components Ambien 5 mg tablet 2025-03-13 00:00:[id number] tabletBEDTIME1 tablet BEDTIME (route: oral)Med Classification: Central Nervous System AgentsAspirin Childrens 81 mg chewable epnimz9604-18-68 00:00:768420-81-24 23:59:[id number] ANTIPLATELET1 tabletDAILY1 tablet DAILY (route: oral)Med Classification: Hematological AgentsCardura 2 mg kiztzi6638-31-48 00:00:[id number] HYPERTENSION1 tabletDAILY1 tablet DAILY (route: oral)Med Classification: Cardiovascular Therapy Agentsclonidine HCl 0.1 mg wkffar0937-01-95 00:00:00Yes [id number] tabletDAILY1 tablet DAILY (route: oral)Med Classification: Cardiovascular Therapy AgentsCoreg 25 mg qvqmbe8783-52-10 00:00:[id number] HTN1 tabletEVERY 12 HOURS1 tablet EVERY 12 HOURS (route: oral)Med Classification: Cardiovascular Therapy AgentsEliquis 2.5 mg cfeent7828-54-55 00:00:670002-29-24 23:59:[id number] THINNER2 tabletEVERY 12 HOURS2 tablet EVERY 12 HOURS (route: oral)Med Classification: Hematological Agents fenofibrate 160 mg lilhnu5930-53-81 00:00:[id number] tablet DAILY1 tablet DAILY (route: oral)Med Classification: Cardiovascular Therapy Agentshydralazine 100 mg hmvntk9444-72-57 00:00:[id number] tabletEVERY 8 HOURS1 tablet EVERY 8 HOURS (route: oral)Med Classification: Cardiovascular Therapy AgentsLexapro 5 mg drzrhu2134-72-79 00:00:[id number] DEPRESSION1 tabletDAILY1 tablet DAILY (route: oral)Med Classification: Central Nervous System Agentsmelatonin 5 mg hxdrfcl2389-35-21 00:00:128759-13-00 23:59:[id number] capsuleBEDTIME1 capsule BEDTIME (route: oral) Med Classification: Central Nervous System AgentsProcardia XL 90 mg tablet,extended meuaasy0699-70-80 00:00:[id number] tabletEVERY 12 HOURS1 tablet EVERY 12 HOURS (route: oral)Med Classification: Cardiovascular Therapy AgentsProtonix 40 mg tablet,delayed xtjxjbo7263-04-58 00:00:00Yes [id number] tabletDAILY1 tablet DAILY (route: oral)Med Classification: Gastrointestinal Therapy AgentsTums 200 mg (as calcium carbonate 500 mg) chewable jqeght2359-74-59 00:00:[id number] STOMACH2 tabletAS NEEDED2 tablet NEEDED (route: oral)Med Classification: Gastrointestinal Therapy AgentsZetia 10 mg gazhuu8755-29-50 00:00:[id number] tablet DAILY1 tablet DAILY (route: oral)Med Classification: Cardiovascular Therapy Agentstramadol 50 mg hrtktk4325-48-58 00:00:[id number] needed for severe pain50 mg3 TIMES DAILY50 mg 3 TIMES DAILY (route: oral)Med Classification: Analgesic, Anti-inflammatory or Antipyreticondansetron HCl 4 mg xbarsh2671-14-11 00:00:869951-51-74 23:59:[id number] AND/OR VOMITING1 tabletEVERY 8 HOURS1 tablet EVERY 8 HOURS (route: oral)Med Classification: Gastrointestinal Therapy Agentsaspirin 81 mg vhnmqi4654-10-70 00:00:[id number] tablet DAILY1 tablet DAILY (route: oral)Med Classification: Hematological AgentsEliquis 2.5 mg zxsxgs5628-33-46 00:00:[id number] THINNER1 tablet2 TIMES DAILY1 tablet 2 TIMES DAILY (route: oral)Med Classification: Hematological Agents isosorbide mononitrate ER 30 mg tablet,extended release 24 ba4461-04-95 00:00:00 [id number] tabletDAILY1 tablet DAILY (route: oral)Med Classification: Cardiovascular Therapy Agentsspironolactone 25 mg dbyxox3389-83-67 00:00:00Yes [id number] tabletDAILY1 tablet DAILY (route: oral)Med Classification: Cardiovascular Therapy AgentsTylenol PM Extra Strength 25 mg-500 mg tablet 2025-07-02 00:00:[id number] NEEDED FOR SLEEP1 tabletBEDTIME1 tablet BEDTIME (route: oral)Med Classification: Analgesic, Anti-inflammatory or AntipyreticLasix 40 mg qoguai2800-74-92 00:00:28Ffd0032066720BAMJN2 tablet2 TIMES DAILY1 tablet 2 TIMES DAILY (route: oral)Med Classification: Cardiovascular Therapy AgentsImodium Multi-Symptom Relief 2 mg-125 mg tablet 2025-07-08 00:00:[id number] BOWEL MOVEMENTSPer instructionsAS NEEDEDPer instructions NEEDED (route: oral)Med Classification: Gastrointestinal Therapy Agents Vital Signs Vital Name Observation Time Observation Value Commen ts Temperature 2025-07-08 13:44:00.000 97.4 [degF] Fqoucrajxtk6095-73-27 12:51:00.45800 [degF]Ycdsdicjkbi6783-09-68 12:52:00.000 96.2 [degF]Dzhomduymwd8901-46-95 14:41:00.54767.5 [degF]BMI (%)2025-07-02 14:41:00.90276 kg/j2Kookhj7313-57-26 14:41:00.24039 [in_us]Vrxvl8392-22-30 13:44:00.38964 /kafSalla4113-88-49 12:51:00.92869 /mdiEbddi7656-10-22 12:52:00.26894 /tkiYgnhi9710-59-75 14:41:00.75125 /minO2 Saturation (%) 2025-07-08 13:44:00.29788 %O2 Saturation (%)2025-07-08 12:51:00.06376 %O2 Saturation (%)2025-07-03 12:52:00.09614 %O2 Saturation (%)2025-07-02 14:41:00.00465 %Evvhloelxcdb1198-40-27 13:44:00.52062 /cdsReoyhfwlmaoe5040-82-49 12:51:00.25706 /gjsJllztdnncdsm0781-12-62 12:52:00.08591 /minRespirations 2025-07-02 14:41:00.90925 /minWeight (lbs)2025-07-02 14:41:00.207241 [lb_av] Systolic Blood Jbdrwyta9511-79-32 13:44:00.134817 mm[Hg]Systolic Blood Pressure 2025-07-08 13:04:00.105956 mm[Hg]Systolic Blood Ijkfrggt0433-04-66 12:51:00.000 168 mm[Hg]Systolic Blood Gqfgvmdm3890-68-94 12:52:00.678870 mm[Hg]Systolic Blood Ywmxpjqv2382-30-05 14:41:00.105149 mm[Hg]Diastolic Blood Myjlsadk6687-54-51 13:44:00.07933 mm[Hg]Diastolic Blood Gbdsawrm1657-28-62 13:04:00.16967 mm[Hg] Diastolic Blood Tysiteoc2452-98-71 12:51:00.84026 mm[Hg]Diastolic Blood Pressure 2025-07-03 12:52:00.62605 mm[Hg]Diastolic Blood Enednjzh6203-59-17 14:41:00.000 64 mm[Hg] Plan of Treatment Planned [...] CHANGE IN CONDITION (SCIC)AND DISCHARGE. HOME HEALTH TIMBER SIZER OPERATOR MAY PROVIDE CARE RECOMMENDATIONS NEEDED ON [...] IN CONDITION (SCIC) AND DISCHARGE. HOME HEALTH TIMBER SIZER OPERATOR MAY PROVIDE CARE RECOMMENDATIONS NEEDED ON [...] End Date/Time Encounter Type Admission Type Attending [facility] Facility Care Department Encounter ID Discharge Date Discharge Status Discharge Condition Discharge Reason Percent Goals Met 2025-07-02 00:00:00 2025-08-30 00:00:00 Outpatient READMISSI ON BRANDON CORDOVA [id number]
== END 2025-07-09 22:21 | disposition home or self-care (01) ==
PROVIDERS: Emergency Provider Emergency Medicine; PCP Internal Medicine
DX: E83.42 Hypomagnesemia (principal); E83.51 Hypocalcemia; N18.4 Chronic kidney disease, stage 4 (severe); R80.9 Proteinuria, unspecified; N17.9 Acute kidney failure, unspecified; D64.9 Anemia, unspecified; R79.89 Other specified abnormal findings of blood chemistry
CPT/HCPCS: 36415; 80048; 80069; 82306; 82607; 82728; 82746; 83540; 83550; 83735; 83970; 84550; 85027; 93005; 96365; 96375; 99285; J0612; J3475

== ENCOUNTER 2025-07-11 13:27 | Outpatient (REF) | payer MEDICARE, SELFPAY ==
--- OUTSIDE RECORDS SUMMARY | 2025-06-27 12:00 | XMS_ITS | Encounter Summary ---
Author Organization [facility] Address [address] [place] [address] Care Team Providers Care President And Ceo Name Role Phone Jack Vogt MD Primary Care Provider [phone] Chantelle Recio Unavailable [phone] Reason for Visit * AazhvzJdxmhfxoW2J for home health Encounter Details DateTypeDepartmentCare Team (Latest Contact Info)Xoqoghvzahb42/10/2025 12:00 PM EDTOffice Visit [facility] [address] [place] [id number] 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, NITROGLYCERIN DISTRIBUTOR [address] [place] [address] Chronic kidney disease, stage 4 (severe) (HCC) (Primary Dx); Chronic diastolic congestive heart failure (HCC); Atherosclerosis of [place] coronary artery of [place] heart with stable angina pectoris; Benign essential hypertension; Degenerative lumbar spinal stenosis; Radiculopathy of lumbar region; Spinal stenosis, lumbar region with neurogenic claudication; Spondylolisthesis of lumbar region; Need for home health care; Routine lab draw; Advanced care planning/counseling discussion Social History Tobacco UseTypesPacks/DayYears UsedDateSmoking Tobacco: NeverSmokeless Tobacco: NeverAlcohol UseStandard Drinks/WeekCommentsDefer0 (1 standard drink = 0.6 oz pure alcohol)caffeine yes type:coffeePHQ-2AnswerDate RecordedPatient Health Questionnaire-2 [id number] and Gender InformationValueDate RecordedSex Assigned at BirthNot on fileLegal SexFemale 11/30/2022 6:57 PM EDTGender IdentityNot on fileSexual OrientationNot on file documented as of this encounter Last Filed Vital Signs Vital SignReadingTime TakenCommentsBlood Pqeklukk332/6006/27/2025 1:28 PM EDT Llbmc992706/27/2025 1:28 PM OVXLntccdaqeww57.4 ??C (97.5 ??F)06/27/2025 1:28 PM EDTRespiratory Rate--Oxygen Ypofnqwcwj24%06/27/2025 1:28 PM EDTInhaled Oxygen Concentration--Weight--Height--Body Mass Index--documented [...] is being seen for a f2f for [facility]. Patient reports that she had not seen nephrology since prior to her 03/2025 hospitalization, but hasan appt with them on 07/15/25. She also has a cardiology visit scheduled for 07/04/25. She admits that she has not been checking her blood pressure. She does have family check in on her frequently and her namszqnm-ny-kyy is filling her pill boxes for her. [...] ormaking simple things such as scrambled eggs, wolof toast, etc. Pt has lost considerable weight [...] would be sent. Also discussed referral to branch lending manager. She states she will wait until after her nephrology appt. 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 Denies any recent falls. Primary activity is sitting on the couch, however, she does have a foot pedal telephone betting clerk she says she uses once/day. She also [...] bilateral femoral stent FEMORAL ARTERY STENT Bilateral ME REMOVE TONSILS/ADENOIDS,11+ Y/O SPINE SURGERY fusion of [...] up scheduled for 07/04/25 3. Atherosclerosis of [place] coronary artery of [place] heart with stable angina pectoris This is [...] confined to the home and needs intermittent [facility] physical therapy occupational therapy. I have initiated the establishment of the plan of care. The patient will be followed by a physician, Dr. Vogt, who will periodically review the plan of care. The findings from this vwdi-hj-ceio encounter have been communicated with the patient's [...] this encounter Procedures Procedure NamePriorityDate/TimeAssociated DiagnosisCommentsCOMPREHENSIVE METABOLIC SHBKUJvweyzj47/10/2025 3:03 PM EDT Chronic kidney disease, stage [...] test. BUN72(H)7 - 25 mg/dLQUESTCreatinine3.66(H)0.60 - 1.00 mg/pKKZCSQSBEL05(L)> OR = 60 mL/min/1.05e6ULTMCVBW/CREATININE MLLDL564 - 22 (calc)HJJYQFkmyke600650 - 146 mmol/LQUESTPotassium, Bld3.3(L)3.5 - 5.3 mmol/DHDNHTGfbqtqbx40937 - 110 mmol/L QUESTCarbon Injdvrc9343 - 32 mmol/LQUESTCalcium6.6(L)8.6 - 10.4 mg/dLQUEST PROTEIN, TOTAL6.0(L)6.1 - 8.1 g/dLQUESTALBUMIN3.73.6 - 5.1 g/dLQUESTGLOBULIN2.3 1.9 - 3.7 g/dL (calc)QUESTALBUMIN/GLOBULIN RATIO1.61.0 - 2.5 (calc)QUEST BILIRUBIN, TOTAL0.70.2 - 1.2 mg/dLQUESTALKALINE EFYGITPSIHI61(L)37 - 153 U/L JDAUFNBP0720 - 35 U/VNUDFHTIZ47 - 29 U/LQUESTSpecimen (Source)Anatomical Location / LateralityCollection Method / VolumeCollection TimeReceived TimeBlood Venous blood specimen / Mmulymb6106/27/2025 3:03 PM EDT1 3:04 PM EDT Narrative Resulting Agency Comment Performing Organization Information ?Site ID: QPT ?Name: [facility] ?Address: [address] [place] [id number] ?Director: Figueroa Jacques MD Authorizing ProviderResult TypeResult StatusDejose HERNANDEZ BLOOD ORDERABLESFinal ResultPerforming OrganizationAddressCity/State/ZIP CodePhone Number QUEST documented in this encounter Visit Diagnoses Diagnosis Chronic kidney disease, stage 4 (severe) (HCC)- Primary Chronic diastolic congestive heart failure (HCC) Atherosclerosis of [place] coronary artery of [place] heart with stable angina pectoris Benign essential [...] MemberRelationshipSpecialtyStart DateEnd Date Jack Vogt MD [address] [facility] [address] [place] [address] PCP - GeneralInternal Medicine01/24/23 Chantelle Recio, HIEU [address] [place] [address] Social WorkerFamily Medicine06/10/25documented as of this encounter
--- OUTSIDE RECORDS SUMMARY | 2025-07-11 13:30 | XMS_ITS | Clinical Summary ---
Author Organization [facility] Address [address] [place] [address] Care Team Providers Care Regional Account Executive Name Role Phone Jack Viera Primary Care Provider [phone] Social History Tobacco UseTypesPacks/DayYears UsedDateSmoking Tobacco: Never Assessed CommentsUnknownSex and Gender InformationValueDate RecordedSex Assigned at Not on fileLegal OraPbkbjy43/02/2012 9:29 AM ESTGender IdentityNot on fileSexual OrientationNot on file Plan of Treatment Not on file Care Teams Team MemberRelationshipSpecialtyStart DateEnd Date Jack Viera [facility] [place] [address] PCP - General12/28/00
--- OUTSIDE RECORDS SUMMARY | 2025-07-11 13:31 | XMS_ITS | Clinical Summary ---
Author Organization [facility] Address [address] [place] [address] Care Team Providers Care Firearms Specialist Name Role Phone Jack Vogt MD Primary Care Provider [phone] Allergies Active AllergyReactionsCriticalityNoted RcgzBihlbvjvGmhxha57/17/2022NickelMedium 06/04/2018 Other reaction(s): Dermatitis skin irritation and itching with jewelry worn Pneumococcal 23-Dianne Ps Mvzperi1505/06/2021 Other reaction(s): Swelling, Redness Red Dye05/04/2022hellfish GrulwecPhjtakgpwgcCgau23/17/4302Ifukale-Hlp-Ozc Reductase Kaddvsbviy00/19/2021 Other reaction(s): Myalgias, Myalgias (Muscle Pain) Mzgpiecipei64/19/2021 Other reaction(s): Vomiting Medications MedicationSigDispense QuantityRefillsLast FilledStart [...] 24 hr tablet Indications:Coronary artery disease involving shoshone-bannock coronary artery of shoshone-bannock heart without angina pectorisTake 1 tablet (30 [...] of the abdomen as an outpatient Hypertensive tfqbsrgyd16/26/2025 Assessment & Plan (03/19/2025 8:02 AM EDT): [...] low-fat diet Other abnormalities of gait and udrhozhx97/26/2025 Assessment & Plan (03/19/2025 8:02 AM EDT): [...] to see patient fall precautions Severe protein-calorie paraimjvhyye94/26/2025 Assessment & Plan (03/19/2025 8:02 AM EDT): [...] Acute kidney injury superimposed on chronic kidney xtbaxri4104/24/2024 Assessment & Plan (03/19/2025 8:02 AM EDT): [...] in order to avoid such labile BP Keljnl2004/24/2024Left knee pain04/24/2024Lower GI bleed04/24/2024Lymphedema 04/24/2024oor dental qwnjgps5004/24/2024Urge qkjxgwfzvrur57/07/2024Weakness qheplvhvaoj00/07/2024Localized edema10/04/2023Stage 3b chronic kidney disease 10/04/2023Stage 4 chronic kidney rmekmyo1207/21/2023 Assessment & Plan (03/19/2025 4:17 PM EDT): [...] taking as well as ARB Allergy to icucofk27Irritable bowel unfxeixl95/18/2023 07/21/20231349Jjoxneb03ostsurgical percutaneous transluminal coronary angioplasty dmkzdf70rimary osteoarthritis of both kneesulmonary embolism with kpkkeboyjm84 Statin rbagnyhpapy45Type 2 diabetes mellitus with other diabetic kidney ihwiwvsldbtq01 Assessment & Plan (03/19/2025 8:02 AM EDT): [...] EDT): ) Blood sugar check diet Tobacco tntdgitiue03/18/202311/11/2022 Assessment & Plan (03/19/2025 8:02 AM EDT): [...] disease which can worsen with tobacco use Kmeqdhzxjbwgps36/19/2465Atcdvebozntv08/19/2023Cardiovascular stress test esmtfixf49/17/2022Carotid artery qabaqlyb80/17/2022Chest pain2Coronary artery disease without angina assipsmr11/17/2022 Overview (01/04/2023): S/p CABG and stenting - [...] exercise as tolerated and continue all medications. 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 atherosclerosis of autologous vein bypass graft 05/04/2022 Assessment & Plan (01/04/2023 3:34 PM EDT): stable Coronary stent lhszbn4105/04/2022ulmonary qwllmob0705/04/2022Hyperlipidemia 05/04/2022 Assessment & Plan (01/04/2023 3:36 PM EDT): Lipid fairly stable with tricor and zetia Pt intolerant of statin, and PCSK9 inhibitor was not affordable Uncontrolled jkvxqrjynlol53/17/2022 Assessment & Plan (01/04/2023 3:35 PM EDT): Hypertension is well controlled 138/74 continue all medications Byksbfgmdpuwga35/17/2022VD (peripheral vascular disease)05/04/2022History of pulmonary coixyjip46/30/nemia due to chronic blood loss05/03/2021 Sinus yzhgaconjc35/16/2021History of thromboembolism of vein03/31/2021Thyroid hnzbij7806/17/20205218Movhqrupb82/13/2020History of coronary artery bypass surgery 3Diabetic renal thmuypa0110/24/20191282Oxrkrwuwqou37/06/2020Age related zgcbgwdnaulh64/04/2020Decreased estrogen level10/09/2019Allergy to statin zvbjapzhrt63/20/2020Dissection of abdominal aorta05/29/2019Degenerative lumbar spinal ouzzlflf57/12/2019Generalized abdominal pain04/29/2019Insomnia 04/29/2019Nausea and lgcifxjh00/12/1601Lnopbdp83/12/2019Peripheral venous wgyldaegnzxoq56/12/2019Current nicotine useLeft foot drop 10/12/2018Lumbar hqavblqjzsmiu22/25/2019Lumbosacral spondylosis without evzjnydben59/25/2019Spondylolisthesis of lumbar pbixss6506/04/2018Neurogenic xdqlcexmelhk55/21/2018Daytime utimiabvwd60/13/2017Celiac artery compression cyjxvjvd45/12/2017Fibrocystic breast fpqtyox5506/22/20168878Xvqsnhxbpwwp98/24/2016 Atherosclerosis of coronary artery without angina tnjpbfuw40/15/2016Benign essential kwzyudvoshww44/15/2016Occlusion of carotid zkowwz0910/02/2015 Assessment & Plan (03/19/2025 8:02 AM EDT): [...] stenosis- no neurological events or concerns noted. Bozlszheoe61/15/2016 Assessment & Plan (03/19/2025 8:02 AM EDT): [...] scale we will add Lexapro Gastroesophageal reflux eharvkg9910/02/2015 Immunizations ImmunizationAdministration DatesNext DueCovid (Pfizer) Bivalent Booster =>12 YRS 07/04/2022Influenza, High-dose Seasonal, Quadrivalent, Preservative Free 06/24/2021Influenza, Seasonal, Quadrivalent, Kuuohkxioq49/17/2022,07/08/2020 Pfizer SARS-CoV-2 Ycdvmlqhcyj70/07/2021,11/17/2020,1Pneumococcal Polysaccharide KYQ964604/01/2015 Family History Medical HistoryRelationNameCommentsCoronary artery diseaseFatherCoronary artery diseaseMotherStrokeMotherOvarian cancerSisterRelationNameStatusCommentsFather MotherSister Social History Tobacco UseTypesPacks/DayYears UsedDateSmoking Tobacco: Every DayCigarettes Passive Smoke Exposure: PastSmokeless Tobacco: Never Tobacco Cessation:Ready to Q uit: Not Asked; Counseling Given: Not Answered Comments:Uses Vuse vape. Nicotine content is 2.4. Alcohol UseStandard Drinks/WeekCommentsNot Currently0 (1 standard drink = 0.6 oz pure alcohol)OCCASIONALAHC UtilitiesAnswerDate RecordedIn the past 12 months has the [employer], gas, oil, or water [employer] threatened to shut off services in your [...] were you homeless or living in a correction (including now)?No03/13/2025Hunger Vital SignAnswerDate RecordedWithin the past 12 months, you worried that your food would run out before you got the money to buymore.Never true03/13/2025Ran Out of Food in the Last YearNot on file 03/13/2025CommentsUnknownSex and Gender InformationValueDate RecordedSex Assigned at UikelMsjaku22/26/2025 12:43 PM EDTLegal AqzEiutua37/29/2022 10:16 PM EDTGender VmysofiaKujmef28/26/2025 12:43 PM EDTSexual OrientationHeterosexual or Dsurtyuj43/26/2025 12:43 PM EDT Last Filed Vital Signs Vital SignReadingTime TakenCommentsBlood Yoicrecq497/7507 2:13 PM EDT Oixqt8499 2:13 PM XYXKyyhgzonfsc37.6 ??C (97.9 ??F)03/20/2025 12:00 PM EDTRespiratory Eyyz545603/20/2025 12:00 PM EDTOxygen Mikykkzijn64%04/04/2025 2:13 PM EDTInhaled Oxygen Concentration--Kfqvas57.2 kg (135 lb)04/04/2025 2:13 PM EDT Cxxfim359.5 cm (5' 2 )04/04/2025 2:13 PM EDTBody Mass Index24.6907 2:13 PM EDT Plan of Treatment DateTypeDepartmentCare Team (Latest Contact Info)Lcbxhwcnmst84/05/2025 3:45 PM ESTOffice Visit [facility] [address] [place] [address] Cristopher Aguilera MD [address] [facility] [place] [address] Health MaintenanceDue DateLast DoneCommentsCT Dmzcqapwggtv05/20/1950Diabetes: Hemoglobin A1C1949FIT-DNA1949FIT1949FOBT1949Medicare Annual Wellness (AWV)1950 8156Rcrnjbxyadiln84/20/1950Diabetes: Retinopathy Xfshhsevh71/20/1960Depression Mkwxdrfzg07/20/1962Adult Gsocmgh6411/07/1971Zoster Vaccines (1 of 2)1999Pneumococcal Vaccine: 50+ Years (2 of 2 - PCV) COVID-19 Vaccine ( season), 07/04/2022, 06/24/2021, Additional history existsInfluenza Vaccine (#1) /, 06/24/2021, 07/08/2020Fall Risk Rlcuvaafr53/03/2026 1821Lknucrzrzzo271Colorectal Cancer Wrgqwaxcw27/30/2031 HIB VaccinesAged OutNo longer eligible based on [...] patient's age [place] [address] Advance Directives * Full Code (Latest Code Status on File) Date ActivatedDate InactivatedComments03/13/2025 2:55 AM03/20/2025 6:36 PM Care Teams Team MemberRelationshipSpecialtyStart DateEnd Date Jack Vogt MD [address] [facility] [address] [place] [address] PCP - General05/08/22
--- OUTSIDE RECORDS SUMMARY | 2025-07-11 13:31 | XMS_ITS | Clinical Summary ---
Author Organization [facility] Address [address] [place] [address] Care Team Providers Care Strategic Buyer Name Role Phone Jack Vogt MD Primary Care Provider [phone] Chantelle Recio C PYTHON DEVELOPER Unavailable [phone] Valerie Go RN Unavailable [phone] Allergies Active AllergyReactionsCriticalityNoted EabmWwiewwgbBdqotvrlagqe55/22/2023 Other Reaction(s): Myalgias Ccluhp2805/09/2023 Other Reaction(s): Unknown Hxhkkfgzxr62/22/2023 Other Reaction(s): Myalgias ItonfbPxbfejrwarAzofbo95/17/2018 skin irritation and itching with jewelry worn Other reaction(s): Dermatitis skin irritation and itching with jewelry worn Other12/12/2024 Other Reaction(s): myalgias (muscle pain) Pneumococcal Vac Pkndpxilsj19/22/2023 Other Reaction(s): Swelling, Redness Ghhhmwlaphn29/22/2023 Other Reaction(s): Myalgias Shellfish PwkivsfPmgsotzlkhrBsrn16/17/0782Wzrawjbsrkt69/22/2023 Other Reaction(s): Myalgias VrjqhnuIyonclo33/27/2025 Other Reaction(s): Other (See Comments) Penznlspupp40/22/2023 Other Reaction(s): Vomiting Medications MedicationSigDispense QuantityRefillsLast FilledStart DateEnd DateStatus nitroglycerin (Nitrostat) 0.4 MG SL tablet Indications:Atherosclerosis of tolowa dee-ni' coronary artery of tolowa dee-ni' heart with stable angina pectorisPlace 1 tablet (0.4 mg) under the tongue every 5 (five) minutes if needed for chest pain 90 tablet 1204Active fenofibrate (Tricor) 145 MG tablet Indications:Mixed hyperlipidemiaTAKE 1 TABLET BY MOUTH EVERY DAY 90 tablet 4025Active ezetimibe (Zetia) 10 MG tablet Indications:Stage 3b chronic kidney disease ([facility]-HCC)TAKE 1 TABLET BY MOUTH EVERY DAY 90 [...] tablet (100 mg) before bedtime. 90 tablet 1107/5031296Active NIFEdipine XL (Procardia XL) 90 MG 24 hr tablet Indications:Atherosclerosis of tolowa dee-ni' coronary artery of tolowa dee-ni' heart with stable angina pectorisTake 1 tablet [...] doxazosin (Cardura) 2 MG tablet Indications:Atherosclerosis of tolowa dee-ni' coronary artery of tolowa dee-ni' heart with stable angina pectorisTAKE 1 TABLET (2 MG) BY MOUTH IN THE MORNING 90 tablet /6Active escitalopram (Lexapro) 5 MG tablet Indications:Depressive disorderTAKE 1 TABLET BY MOUTH EVERY DAY IN THE MORNING 90 tablet 5Active escitalopram (Lexapro) 5 MG tablet Indications:Depressive disorderTake 1 tablet (5 mg) by mouth in the morning. 30 tablet Discontinued doxazosin (Cardura) 2 MG tablet Indications:Atherosclerosis of tolowa dee-ni' coronary artery of tolowa dee-ni' heart with stable angina pectorisTake 1 tablet (2 mg) by mouth in the morning. 30 tablet Discontinued potassium chloride CR (Klor-Con M10) 10 MEQ ER tablet Indications:HypokalemiaTake 1 tablet (10 mEq) by mouth in the morning and 1 tablet (10 mEq) before bedtime. Do all this for 7 days. Do not crush or chew. 14 tablet Expired Active Problems ProblemNoted DateDiagnosed HwujWauhhcdqhh24/07/2024Stage 3b chronic kidney nwvlvwb1710/04/2023Localized edema10/04/2023Kidney qxiotc8405/10/2023ulmonary embolism with tvbiuvcjta68/18/2023therosclerosis of tolowa dee-ni' coronary artery of tolowa dee-ni' heart with stable angina kqjkufhz37/18/2023ERD (gastroesophageal reflux disease)05/05/2023epressive dxvaoatp97/18/2023enign essential hypertension 05/05/2023arotid artery leryaadyq70/18/2023Mixed erkrqjpnbovgty84/18/2023 Primary osteoarthritis of both knees05/05/20238403Zvenrdowaxjq49/18/2023rimary generalized hypertrophic uutvqdbwcuxoji71/18/2023Fibrocystic breast changes 05/05/2023Stricture of sbdben0405/05/2023AD (peripheral artery disease)05/05/2023 Tobacco fxpueyemri85/18/2023rteriosclerosis uanjiqiypm77/18/2023Renal artery dwljulre77/18/2023aytime lamhtxrvij24/18/2023Spinal stenosis, lumbar region with neurogenic wuirsjltjfcf82/18/2023Radiculopathy of lumbar uidcyt5705/05/2023 Degenerative lumbar spinal mbynmfsr28/18/2023Spondylolisthesis of lumbar region 05/05/2023Spondylosis of lumbar spine05/05/2023Left foot drop05/05/2023Venous insufficiency (chronic) (peripheral)05/05/2023eripheral arteriosclerosis 05/05/2023Obesity (BMI 30.0-34.9)05/05/2023Non-intractable vomiting with nausea 05/05/2023Insomnia due to medical xjpwjrgod16/18/2023ortic dissection, jhtifwzka68/18/2023ecreased estrogen level05/05/2023ge-related osteoporosis without current pathological lbqqokod57/18/2023roteinuria, unspecified 05/05/2023Thyroid gabfko7705/05/2023Sinus bsbxujxitk63/18/8288Gaqpxet88/18/2023 Irritable bowel /18/2023nemia due to chronic blood loss05/05/2023 Allergy to zzquhif6205/05/2023Statin diuiocpvrwz58/18/2023ostsurgical percutaneous transluminal coronary angioplasty lkfofl8105/05/2023nticoagulated 01/04/2023oronary atherosclerosis of autologous vein bypass graft05/04/2022 Overview (05/10/2023): Last Assessment & Plan: stable Coronary stent nzndkv6805/04/2022ulmonary idgokfm7505/04/2022History of pulmonary feztbiqs05/30/2021History of thromboembolism of vein03/31/2021History of coronary artery bypass imstvjd7001/09/2020History of coronary artery stent izoxioeah46/23/2020Allergy to statin pjgwdgefgb52/20/2020Current nicotine use 02/27/2019Lumbosacral spondylosis without frjbxrznid63/25/2019Cardiovascular stress test luziqans23/05/2018Chest pain05/23/20183505Jzdhdmyedzzua11/05/2018 Neurogenic ehscynnowrbs87/21/2018 Resolved Problems ProblemNoted DateDiagnosed DateResolved DateGeneralized abdominal pain05/05/2023 04/03/2025Type 2 diabetes mellitus with other diabetic kidney complication /11/20230868Kysixlsgw90Diabetic renal disease Encounters DateTypeDepartmentCare GrsrCgoikaldnre93/23/2025Patient Outreach [facility] [address] [place] [address] Chantelle Recio LSW 07/09/2025linisync Result Encounter [facility] External Department Unsolicited Provider, Generic External Data 07/09/2025Patient Outreach [facility] [address] [place] [address] Valerie Go RN 07/09/2025bstract [facility] [address] [place] [phone] Jack Vogt MD 07/08/2025Telephone [facility] [address] [place] [address] Jack Vogt MD 07/03/2025bstract [facility] [address] [place] [address] Jack Vogt MD 06/30/2025Patient Outreach [facility] [address] 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; Benign essential hypertension; Degenerative lumbar spinal stenosis; Radiculopathy of lumbar region; Spinal stenosis, lumbar region with neurogenic claudication; Spondylolisthesis of lumbar region; Need for home health care; Routine lab draw; Advanced care planning/counseling zshhebldtr17/10/2025Telephone [facility] [address] [place] [address] 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 NP 06/23/2025[facility] [address] [place] [address] Jack Vogt MD 06/20/2025[facility] [address] [place] [address] Jack Vogt MD Atherosclerosis of tolowa dee-ni' coronary artery of tolowa dee-ni' heart with stable angina pectoris; Depressive oholhvnt46/23/2025Patient Outreach [facility] [address] [place] [address] Chantelle Recio, [facility] 06/09/2025 11:15 AM EDTOffice Visit [facility] [address] [place] [address] Jack Vogt MD Chronic kidney disease, stage 4 (severe) (HCC) (Primary Dx); Benign essential hypertension ; Functional diarrhea; 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 ; Chronic diastolic congestive heart failure (HCC); Fyddzvxosfz23/22/2025linisync Result Encounter [facility] External Department Unsolicited Jack Vogt MD 06/09/2025Telephone [facility] [address] [place] [address] Jack Vogt MD 06/09/2025[facility]phone [facility] [address] [place] [address] Jack Vogt MD call with tvcntml1706/09/2025amboo flowsheet [facility] [address] [place] [address] Jack Vogt MD 06/09/20259191Iwdygf77/08/2025bstract [facility] [address] [place] [address] Jack Vogt MD 05/21/2025bstract [facility] [address] [place] [address] Jack Vogt MD 05/14/2025Telephone [facility] [address] [place] [address] Jack Vogt MD 05/13/2025bstract [facility] [address] [place] [address] Jack Vogt MD 05/12/2025bstract [facility] [address] [place] [address] Jack Vogt MD 05/08/2025Telephone [facility] [address] [place] [address] Jack Vogt MD Ljokhe6604/29/2025bstract [facility] [address] [place] [address] Jack Vogt MD 04/29/2025bstract [facility] [address] [place] [address] Jack Vogt MD 04/24/2025bstract [facility] [address] [place] [address] Jack Vogt MD 04/24/2025bstract [facility] [address] [place] [address] Jack Vogt MD 04/24/2025bstract [facility] [address] [place] [address] Jack Vogt MD 04/17/2025bstract [facility] [address] [place] [address] Jack Vogt MD 04/15/2025Telephone [facility] [address] [facility] [address] [place] [address] Jack Vogt MD 04/15/2025Patient Outreach [facility] [address] [place] [address] Lucy Dooley, GODWIN 04/14/2025bstract [facility] [address] [place] [address] Jack Vogt MD 04/10/2025bstract [facility] [address] [place] [address] Jack Vogt MD 04/10/2025bstract [facility] [address] [facility] [address] [place] [address] Jack Vogt MD 04/10/2025bstract [facility] [address] [place] [address] Jack Vogt MD from Last 3 Months Immunizations ImmunizationAdministration DatesNext DueInfluenza, High-dose Seasonal, Quadrivalent, Preservative Free06/24/2021Influenza, Seasonal, Quadrivalent, Qtcvrbecvt94/17/2022,07/08/2020Moderna Bivalent Booster Ivkmollkmhb07/17/2022 Pneumococcal Polysaccharide JLQD2280Smallpox Monkeypox, Live Attenuated, Preservative Free07/08/2020 Family History Medical HistoryRelationNameCommentsLymphomaBrotherHeart diseaseFatherStroke FatherHeart diseaseMotherOvarian cancerSisterDiabetesSonRelationNameStatus CommentsBrotherFatherDeceasedMotherDeceasedSisterSonAlive Social History Tobacco UseTypesPacks/DayYears UsedDateSmoking Tobacco: FormerCigarettes Smokeless Tobacco: Never Tobacco Cessation:Counseling Given: Not Answered Alcohol UseStandard Drinks/WeekCommentsDefer0 (1 standard drink = 0.6 oz pure alcohol)caffeine yes type:coffeePHQ-2AnswerDate RecordedPatient Health Questionnaire-2 Rxlvu630CommentsUnknownSex and Gender InformationValueDate RecordedSex Assigned at BirthNot on fileLegal SexFemale 11/30/2022 6:57 PM EDTGender IdentityNot on fileSexual OrientationNot on file Last Filed Vital Signs Vital SignReadingTime TakenCommentsBlood Cvafhutn411/6006/27/2025 1:28 PM EDT Imerg470406/27/2025 1:28 PM WJLNnbsvsdicop09.4 ??C (97.5 ??F)06/27/2025 1:28 PM EDTRespiratory Duxy613502/25/2025 11:40 AM EDTOxygen Pcyttazlnz66%06/27/2025 1:28 PM EDTInhaled Oxygen Concentration--Vcwcsp89.5 kg (129 lb)06/09/2025 11:14 AM FTMQdpigh242.5 cm (5' 2 )06/09/2025 11:14 AM EDTBody Mass Index23.59006/09/2025 11:14 AM EDT Plan of Treatment Health MaintenanceDue DateLast DoneCommentsCT Awzfcgxzybsv28/20/1950FIT-DNA 1949FIT1949FOBT1949 7595Cbgobglvsxsuk44/20/1950Diabetes: Retinopathy Qumkhaxdu32/11/2022, 3Diabetes: Urine Protein Sxijmwkou64/, 10/09/2019, 09/28/2018Diabetes: Hemoglobin A1C , 03/20/2024, 12/13/2023, Additional history existsInfluenza Vaccine (#1)51, 06/24/2021, 07/08/20209951Vcckjxyesqk88/30/2031 03/17/2021olorectal Cancer Imdzalcpd38/30/2031Pneumococcal Vaccine: 65+ Years Jvikkeijpsoe36/15/6469CxfmmwgdlWcslqliqwqyl88/20/2024, 02/05/2024, 02/03/2023, Additional history exists Goals GoalPatient Goal TypeAssociated ProblemsRecent ProgressPatient-Stated?Author Help patient manage antidepressant medication Care PlanPatient on antidepressant monitoring Renetta Enamorado NP Procedures Procedure NamePriorityDate/TimeAssociated DiagnosisCommentsVITAMIN B03Zgoalhd 07/09/2025 2:40 PM EDT HMHP PTH, JCGEEZZBWAJCOESemamnl28/22/2025 2:40 PM EDT ALL VXPLAXZWMEibwvdr05/22/2025 2:40 PM EDT ALL URIC OMRBFuyedlx55/22/2025 2:40 PM EDT ALL RENAL FUNCTION VSJPIKshcvot53/22/2025 2:40 PM EDT ALL FOLIC ADHWCaxnimc14/22/2025 2:40 PM EDT TBH VITAMIN D 25 REJxlyjva41/22/2025 2:40 PM EDT [facility] AHBREXOVJtiuegf01/22/2025 2:40 PM EDT [facility] IRON AND RLDYHggzdfy33/22/2025 2:40 PM EDT HMHP CBC WITH PLATELET NO BQUYBWSKBOOIZrellzr96/22/2025 2:40 PM EDT COMPREHENSIVE METABOLIC TUHGXVijutsk82/10/2025 3:03 PM EDT Chronic kidney disease, stage 4 (severe) (HCC) ALL THYROXINE (T4) NWKOBhuiqva98/22/2025 12:41 PM EDT ALL CBC WITH AUTO OULCTefducx42/22/2025 12:41 PM EDT TSH W/REFLEX S9Uranlss63/22/2025 12:41 PM EDT ALL PRO GNSUmyrhlt04/22/2025 12:41 PM EDT [facility] CMP (CMP) (FOR REMOTE [facility] USE)Rakjmut0206/09/2025 12:41 PM EDT POCT GLYCATED HEMOGLOBIN, BBNLNWuwzzpi34/27/2025 12:07 PM EDT Type 2 diabetes mellitus with diabetic peripheral angiopathy without gangrene (HCC) MAMMOGRAM*Buijbjn4102/05/2024 1:10 PM EDTMICROALBUMIN / CREATININE URINE RATIO Bdxkisa7812/13/2023 11:50 AM EDT Type 2 diabetes mellitus with stage 3b chronic kidney disease, without long-term current use of insulin (HCC) COLOR FUNDUS PHOTOGRAPHY - OU - BOTH KRSNTqtutuc82/03/2023 12:00 PM EST VJOIJSBIHLKWpoxatf60/30/2021 12:00 PM EDT from Last 3 Months or Most Recently Relevant to Health Maintenance Results * VITAMIN B12 (07/09/2025 2:40 PM EDT)ComponentValueRef RangeTest MethodAnalysis TimePerformed AtPathologist SignatureVITAMIN [id number] - 1245 pg/mLTBHComment: Performed at: ??CB - [facility] [address] ??[id number] Thread Laster: Raul Medel PhD, Phone: ??[phone] Specimen (Source)Anatomical Location / LateralityCollection Method / Volume Collection TimeReceived Time10/ 2:40 PM EDT1 3:28 PM EDT Narrative [facility] - 07/11/2025 4:07 AM EDT Authorizing ProviderResult TypeResult StatusGeneric External Data ProviderLAB BLOOD ORDERABLESFinal ResultPerforming OrganizationAddressCity/State/ZIP Code Phone Number KATHY TREJO * TBH VITAMIN D 25 [place] (07/09/2025 2:40 PM EDT)ComponentValueRef RangeTest Method Analysis TimePerformed AtPathologist SignatureVITAMIN D28.8ng/mLTBHComment: <20 ng/mL Vit D deficient 20-<30 ng/mL Vit D insufficient 30-100 ng/mL ??Vit D sufficient >100 ng/mL Potential Toxicity Specimen (Source)Anatomical Location / LateralityCollection Method / Volume Collection TimeReceived Time07/09/2025 2:40 PM EDT1 3:28 PM EDT Narrative [facility] 07/09/2025 4:27 PM EDT [facility] DROP OFF Authorizing ProviderResult TypeResult StatusGeneric External Data Provider CLINISYNCFinal ResultPerforming OrganizationAddressCity/State/ZIP CodePhone Number KATHY TB * (ABNORMAL) [facility] (07/09/2025 2:40 PM EDT)ComponentValueRef Range Test MethodAnalysis TimePerformed AtPathologist SignatureTBH IRON40.0(L)50.0 - 170.0 ug/dLTBHTBH TOTAL IRON BINDING WIDLUQVN818.0250.0 - 450.0 ug/dLTBHTBH PERCENT IRON BFJCDGJJTN49.3%TBHSpecimen (Source)Anatomical Location / LateralityCollection Method / VolumeCollection TimeReceived Time07/09/2025 2:40 PM EDT1 3:28 PM EDT Narrative [facility] - 07/09/2025 4:06 PM EDT Authorizing ProviderResult TypeResult StatusGeneric External Data Provider CLINISYNCFinal ResultPerforming OrganizationAddressCity/State/ZIP CodePhone Number KATHY TB * (ABNORMAL) HM[facility] PTH, INTRAOPERATIVE (07/09/2025 2:40 PM EDT)ComponentValueRef RangeTest MethodAnalysis TimePerformed AtPathologist SignaturePTH, GOLTIX88(A) 15 - 65 pg/mLTBHComment: Performed at: ??CB - [facility] [address] ??[id number] Thread Laster: Raul Medel PhD, Phone: ??[phone] Specimen (Source)Anatomical Location / LateralityCollection Method / Volume Collection TimeReceived Time07/09/2025 2:40 PM EDT1 3:28 PM EDT Narrative [facility] - 07/10/2025 12:08 PM EDT Authorizing ProviderResult TypeResult StatusGeneric External Data Provider CLINISYNCFinal ResultPerforming OrganizationAddressCity/State/ZIP CodePhone Number [facility] * (ABNORMAL) [facility] CBC WITH PLATELET NO DIFFERENTIAL (07/09/2025 2:40 PM EDT) ComponentValueRef RangeTest MethodAnalysis TimePerformed AtPathologist SignatureTBH WBC4.34.0 - 11.0 10 3/uLTBHTBH RBC3.14(L)4.20 - 5.40 10 6/uLTBH TBH HGB9.1(L)12.0 - 16.0 g/dLTBHTBH HCT26.8(L)36.0 - 48.0 %TBHTBH MCV85.481.0 - 99.0 fLTBHTBH MCH29.026.7 - 34.0 pgTBHTBH MCHC34.029.9 - 35.2 g/dLTBHTBH RDW 17.8(H)11.0 - 15.0 %TBHTBH TSN810712 - 450 10 3/uLTBHTBH MPV10.79.5 - 13.5 fL TBHSpecimen (Source)Anatomical Location / LateralityCollection Method / Volume Collection TimeReceived Time07/09/2025 2:40 PM EDT1 3:28 PM EDT Narrative [facility] - 07/09/2025 3:55 PM EDT Authorizing ProviderResult TypeResult StatusGeneric External Data Provider CLINISYNCFinal ResultPerforming OrganizationAddressCity/State/ZIP CodePhone Number [facility] * [facility] FERRITIN (07/09/2025 2:40 PM EDT)ComponentValueRef RangeTest Method Analysis TimePerformed AtPathologist UpqstvoonGGPTALZD51.08.0 - 252.0 ng/mLTBH Specimen (Source)Anatomical Location / LateralityCollection Method / Volume Collection TimeReceived Time07/09/2025 2:40 PM EDT1 3:28 PM EDT Narrative [facility] - 07/09/2025 4:27 PM EDT [facility] Authorizing ProviderResult TypeResult StatusGeneric External Data Provider CLINISYNCFinal ResultPerforming OrganizationAddSt. Christopher's Hospital for Childrenty/State/ZIP CodePhone Number KATHY [facility] * (ABNORMAL) ALL URIC ACID (07/09/2025 2:40 PM EDT)ComponentValueRef RangeTest MethodAnalysis TimePerformed AtPathologist SignatureURIC ACID8.1(H)2.6 - 6.0 mg/dLTBHSpecimen (Source)Anatomical Location / LateralityCollection Method / VolumeCollection TimeReceived Time07/09/2025 2:40 PM EDT1 3:28 PM EDT Narrative [facility] - 07/09/2025 4:41 PM EDT Authorizing ProviderResult TypeResult StatusGeneric External Data Provider CLINISYNCFinal ResultPerforming OrganizationAddSt. Christopher's Hospital for Childrenty/State/ZIP CodePhone Number KATHY [facility] * (ABNORMAL) ALL RENAL FUNCTION PANEL (07/09/2025 2:40 PM EDT)ComponentValueRef RangeTest MethodAnalysis TimePerformed AtPathologist PxjrfxjxbCXSPOT067748 - 145 mmol/LTBHPOTASSIUM3.2(L)3.5 - 5.1 mmol/AZXBABTHAOIX97131 - 107 mmol/LTBH CARBON XOPTCYP00.921.0 - 32.0 mmol/LTBHANION GAP16.8CLCEJEMFNM4256 - 106 mg/dL TBHBLOOD UREA KAUVYGVX65.0(H)7.0 - 18.0 mg/dLTBHCREATININE3.20(H)0.55 - 1.02 mg/dLTBHTBH EGFR-AF VCTUHGAS95(L)>=60 mL/min/1.73m 2TBHTBH EGFR-NON AF FCVOBMEE95(L)>=60 mL/min/1.73m 2TBHBUN CREATININE RATIO20.7LUWMMDHIXD0.1(L)8.5 - 10.1 mg/dLTBHPHOSPHORUS4.22.6 - 4.7 mg/dLTBHALBUMIN LEVEL3.1(L)3.4 - 5.0 g/dLTBHSpecimen (Source)Anatomical Location / LateralityCollection Method / VolumeCollection TimeReceived Time07/09/2025 2:40 PM EDT1 3:28 PM EDT Narrative [facility] - 07/09/2025 4:41 PM EDT Authorizing ProviderResult TypeResult StatusGeneric External Data Provider CLINISYNCFinal ResultPerforming OrganizationAddressCity/State/ZIP CodePhone Number [facility] * (ABNORMAL) ALL MAGNESIUM (07/09/2025 2:40 PM EDT)ComponentValueRef RangeTest MethodAnalysis TimePerformed AtPathologist SignatureMAGNESIUM0.6(LL)1.8 - 2.4 mg/dLTBHComment:RESULTS CALLED TOSpecimen (Source)Anatomical Location / LateralityCollection Method / VolumeCollection TimeReceived Time07/09/2025 2:40 PM EDT1 3:28 PM EDT Narrative [facility] - 07/09/2025 4:41 PM EDT Authorizing ProviderResult TypeResult StatusGeneric External Data Provider CLINISYNCFinal ResultPerforming OrganizationAddressty/State/ZIP CodePhone Number [facility] * (ABNORMAL) ALL FOLIC ACID (07/09/2025 2:40 PM EDT)ComponentValueRef RangeTest MethodAnalysis TimePerformed AtPathologist SignatureFOLATE4.80(L)8.60 - 58.90 ng/mLTBHSpecimen (Source)Anatomical Location / LateralityCollection Method / VolumeCollection TimeReceived Time07/09/2025 2:40 PM EDT1 3:28 PM EDT Narrative [facility] - 07/09/2025 4:27 PM EDT [facility] DROP OFF Authorizing ProviderResult TypeResult StatusGeneric External Data Provider CLINISYNCFinal ResultPerforming OrganizationAddressCity/State/ZIP CodePhone Number [facility] * (ABNORMAL) Comprehensive metabolic panel (06/27/2025 3:03 PM EDT)Component ValueRef RangeTest MethodAnalysis TimePerformed AtPathologist SignatureGlucose 124(H)65 - 99 mg/dLQUESTComment: ? Fasting reference interval For someone without known diabetes, a glucose value between 100 and 125 mg/dL is consistent with prediabetes and should be confirmed with a follow-up test. BUN72(H)7 - 25 mg/dLQUESTCreatinine3.66(H)0.60 - 1.00 mg/pNQFATONERW39(L)> OR = 60 mL/min/1.58q6UKUWFJHI/CREATININE ALAIJ408 - 22 (calc)PUGQZHpdoyz517066 - 146 mmol/LQUESTPotassium, Bld3.3(L)3.5 - 5.3 mmol/SMJOHDCqublfad06359 - 110 mmol/L QUESTCarbon Pjjmmku9397 - 32 mmol/LQUESTCalcium6.6(L)8.6 - 10.4 mg/dLQUEST PROTEIN, TOTAL6.0(L)6.1 - 8.1 g/dLQUESTALBUMIN3.73.6 - 5.1 g/dLQUESTGLOBULIN2.3 1.9 - 3.7 g/dL (calc)QUESTALBUMIN/GLOBULIN RATIO1.61.0 - 2.5 (calc)QUEST BILIRUBIN, TOTAL0.70.2 - 1.2 mg/dLQUESTALKALINE NBJWHJHTGIP43(L)37 - 153 U/L RVIEGTFV4494 - 35 U/OLAFNFLUQ27 - 29 U/LQUESTSpecimen (Source)Anatomical Location / LateralityCollection Method / VolumeCollection TimeReceived TimeBlood Venous blood specimen / Uasaldo0406/27/2025 3:03 PM EDT1 3:04 PM EDT Narrative Resulting Agency Comment Performing Organization Information ?Site ID: [id number] ?Name: [facility] ?Address: [address] [place] [address], [address] [place] [id number] ?Director: Figueroa Jacques MD Authorizing ProviderResult TypeResult StatusDejose HERNANDEZ BLOOD ORDERABLESFinal ResultPerforming OrganizationAddressCity/State/ZIP CodePhone Number [facility] * (ABNORMAL) TSH W/REFLEX T4 (06/09/2025 12:41 PM EDT)ComponentValueRef Range Test MethodAnalysis TimePerformed AtPathologist SignatureTSH4.130(H)0.358 - 3.740 uIU/mLTBHSpecimen (Source)Anatomical Location / LateralityCollection Method / VolumeCollection TimeReceived Time06/09/2025 12:41 PM EDT06/09/2025 12:42 PM EDT Narrative [facility] - 06/09/2025 1:32 PM EDT Authorizing ProviderResult TypeResult StatusDaeldon SYLVESTER BLOOD ORDERABLESFinal ResultPerforming OrganizationAddressCity/State/ZIP CodePhone Number [facility] * (ABNORMAL) [facility] CMP (CMP) (FOR REMOTE [facility] USE) (06/09/2025 12:41 PM EDT) ComponentValueRef RangeTest MethodAnalysis TimePerformed AtPathologist CfifmfdwtFKXAHF979861 - 145 mmol/LTBHPOTASSIUM3.0(L)3.5 - 5.1 mmol/LTBH LQAEWUVU54518 - 107 mmol/LTBHCARBON SSYPLZZ75.521.0 - 32.0 mmol/LTBHANION GAP 14.3AWZKEPOTET8304 - 106 mg/dLTBHBLOOD UREA VSMQDDDX64.0(H)7.0 - 18.0 mg/dLTBH CREATININE3.80(H)0.55 - 1.02 mg/dLTBHTBH EGFR-AF OWNVNQIP78(L)>=60 mL/min/1.73m 2TBHTBH EGFR-NON AF OCCRFOCM61(L)>=60 mL/min/1.73m 2TBHBUN CREATININE RATIO16.5QABFDAXELS0.8(L)8.5 - 10.1 mg/dLTBHBILIRUBIN TOTAL0.80.2 - 1.0 mg/dLTBHASPARTATE AMINO SJNCALLRGFE8032 - 37 U/LTBHALANINE UVMGYIROOENSGIJA46(L)14 - 59 U/LTBHALKALINE PCLSBEKKIUD64(L)46 - 116 U/LTBH TOTAL PROTEIN7.26.4 - 8.2 g/dLTBHALBUMIN LEVEL3.43.4 - 5.0 g/dLTBHGLOBULIN3.8 g/dLTBHALBUMIN GLOBULIN RATIO0.9TBHSpecimen (Source)Anatomical Location / LateralityCollection Method / VolumeCollection TimeReceived Time06/09/2025 12:41 PM EDT06/09/2025 12:42 PM EDT Narrative CLINISYNC - 06/09/2025 1:32 PM EDT Authorizing ProviderResult TypeResult StatusJack Janusz Vogt [facility] TULSALINISYNCFinal ResultPerforming OrganizationAddressCity/State/ZIP CodePhone Number [facility] * ALL THYROXINE (T4) FREE (06/09/2025 12:41 PM EDT)ComponentValueRef RangeTest MethodAnalysis TimePerformed AtPathologist SignatureFREE T41.280.76 - 1.46 ng/dLTBHSpecimen (Source)Anatomical Location / LateralityCollection Method / VolumeCollection TimeReceived Time06/09/2025 12:41 PM EDT06/09/2025 12:42 PM EDT Narrative CLINISYNC - 06/09/2025 2:01 PM EDT Authorizing ProviderResult TypeResult StatusDaeldon Janusz Vogt [facility]ALINISYNCMargaretville Memorial Hospitalal ResultPerforming OrganizationAddressty/State/ZIP CodePhone Number [facility]IN[facility] * (ABNORMAL) ALL PRO BNP (06/09/2025 12:41 PM EDT)ComponentValueRef RangeTest MethodAnalysis TimePerformed AtPathologist SignatureNT PRO B TYPE NATRIURETIC PEPT18,501.0(HH)<=1,800.0 pg/mLTBHComment:RESULTS CALLED TO CARO ALONZO MA Specimen (Source)Anatomical Location / LateralityCollection Method / Volume Collection TimeReceived Time06/09/2025 12:41 PM EDT06/09/2025 12:42 PM EDT Narrative CLINISYNC - 06/09/2025 1:32 PM EDT Authorizing ProviderResult TypeResult StatusJack Janusz Vogt [facility]INISYNCFinal ResultPerforming OrganizationAddressCity/State/ZIP CodePhone Number [facility] * (ABNORMAL) ALL CBC WITH AUTO DIFF (06/09/2025 12:41 PM EDT)ComponentValueRef RangeTest MethodAnalysis TimePerformed AtPathologist SignatureTBH WBC2.9(L)4.0 - 11.0 10 3/uLTBHTBH RBC3.39(L)4.20 - 5.40 10 6/uLTBHTBH HGB9.7(L)12.0 - 16.0 g/dLTBHTBH HCT29.3(L)36.0 - 48.0 %TBHTBH MCV86.481.0 - 99.0 fLTBHTBH MCH28.6 26.7 - 34.0 pgTBHTBH MCHC33.129.9 - 35.2 g/dLTBHTBH RDW16.3(H)11.0 - 15.0 %TBH TBH YMM185134 - 450 10 3/uLTBHTBH MPV11.19.5 - 13.5 [...] StatusDaeldon Vogt MDCLINISYNCFinal ResultPerforming OrganizationAddressCity/State/ZIP CodePhone Number CLINISYNC TBH * POCT Glycated hemoglobin, total (12/12/2024 12:07 PM EDT)ComponentValueRef RangeTest MethodAnalysis TimePerformed AtPathologist SignatureHemoglobin A1C 5.0Specimen (Source)Anatomical Location / LateralityCollection Method / Volume Collection TimeReceived DujpVcrdv93/27/2025 12:07 PM EDT Narrative Authorizing ProviderResult TypeResult StatusJack Vogt [facility] ENTER/EDIT ORDERABLESFinal Result * MAMMOGRAM* (02/05/2024 1:10 PM EDT)Anatomical RegionLateralityModality Radiographic Imaging Narrative Authorizing ProviderResult TypeResult StatusNoms Provider Unallocated MDIMG XR PROCEDURESFinal Result * (ABNORMAL) Microalbumin / creatinine urine ratio (12/13/2023 11:50 AM EDT) ComponentValueRef RangeTest MethodAnalysis TimePerformed AtPathologist SignatureCREATININE, RANDOM KRGUD9071 - 275 mg/dLQUESTALBUMIN, URINE36.2See Note: mg/dLQUESTComment: Reference Range: Reference Range Not established Results verified by repeat analysis on dilution. ALBUMIN/CREATININE RATIO, RANDOM JASRE980(H)<30 mg/g creatQUESTComment: The ADA defines abnormalities in [...] specimen obtained by clean catch procedure / Rscgmno9812/13/2023 11:50 AM EDT12/13/2023 11:50 AM EDT Narrative [facility] - 12/14/2023 1:50 PM EDT FASTING:NO FASTING: NO Resulting Agency Comment Performing Organization Information ?Site ID: [id number] ?Name: [facility] ?Address: [address] [place] [address], [address] [place] [id number] ?Director: Figueroa Jacques MD Authorizing ProviderResult TypeResult StatusJack Vogt MDLAB URINE ORDERABLESFinal ResultPerforming OrganizationAddressCity/State/ZIP CodePhone Number [facility] * Color Fundus Photography - OU - Both Eyes (11/18/2022 12:00 PM EST)Anatomical RegionLateralityModalityHeadFundus PhotographySpecimen (Source)Anatomical Location / LateralityCollection Method / VolumeCollection TimeReceived Time 11/18/2022 12:00 PM EST Narrative 11/18/2022 12:00 PM EST PERFORMED AT [facility] LOCATION:[id number] [facility] Procedure Note CONVERSION, GENERIC - 02/02/2023 PERFORMED AT [facility] LOCATION:[id number] [facility] Authorizing ProviderResult TypeResult StatusJack Vogt MDOPHTH PHOTOGRAPHY Final Result * Colonoscopy (03/17/2021 12:00 PM EDT)Anatomical RegionLateralityModality EndoscopySpecimen (Source)Anatomical Location / LateralityCollection Method / VolumeCollection TimeReceived Time03/17/2021 12:00 PM EDT Narrative 03/17/2021 12:00 PM EDT PERFORMED AT [facility] LOCATION:[id number] polyp- Procedure Note CONVERSION, GENERIC - 02/01/2023 PERFORMED AT [facility] LOCATION:[id number] polyp- Authorizing ProviderResult TypeResult Eliu Vogt MDENDOSCOPY PROCEDURE ORDERABLESFinal Result from Last 3 Months or Most Recently Relevant to Health Maintenance Additional Health Concerns Active ProblemsNoted DateDiagnosed DatePatient on antidepressant monitoring plan 02/25/2025 Insurance Care Teams Team MemberRelationshipSpecialtyStart DateEnd Date Jack Vogt MD [address] [facility] [address] [place] [address] PCP - GeneralInternal Medicine01/24/23 Chantelle Recio, HIEU [address] [place] [address] Social WorkerFamily Medicine06/10/25 Valerie Go, RN [address] [facility] [address] [place] [address] Registered NurseFamily Vxwbddcu77/13/25
--- OUTSIDE RECORDS SUMMARY | 2025-07-11 13:31 | XMS_ITS | Encounter Summary ---
Author Organization [facility] Healthcare Address [address] [place] [address] Care Team Providers Care Resource Engineer Name Role Phone Jack Vogt MD Primary Care Provider [phone] Chantelle Recio SKIN TANNER Unavailable [phone] Valerie Go RN Unavailable [phone] Reason for Referral * [facility] (Routine) - AuthorizedSpecialtyDiagnoses / ProceduresReferred By ContactReferred To [facility] Services Diagnoses Fibromyalgia Degenerative lumbar spinal stenosis Radiculopathy of lumbar region Spondylolisthesis of lumbar region Spinal stenosis, lumbar region with neurogenic claudication 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 NP [address] [place] [address] Phone: tel: fax: [facility] Referral IDStatusReasonStart DateExpiration DateVisits RequestedVisits [id number] Specialty Services Required [id number] Encounter Details DateTypeDepartmentCare Team (Latest Contact Info)Japixssovar68/13/2025Patient Outreach [facility] [address] [place] [phone] Chantelle Recio LSW [address] [place] [address] Social History Tobacco UseTypesPacks/DayYears UsedDateSmoking Tobacco: NeverSmokeless Tobacco: NeverAlcohol UseStandard Drinks/WeekCommentsDefer0 (1 standard drink = 0.6 oz pure alcohol)caffeine yes type:coffeePHQ-2AnswerDate RecordedPatient Health Questionnaire-2 Axvew546CommentsUnknownSex and Gender InformationValueDate RecordedSex Assigned at BirthNot [...] MemberRelationshipSpecialtyStart DateEnd Date Jack Vogt MD [address] [facility] [address] [place] [address] PCP - GeneralInternal Medicine01/24/23 Chantelle Recio, HIEU [address] [place] [address] Social WorkerFamily Medicine06/10/25 Valerie Go, DEBORA [address] [place] [address] Registered NurseFamily Ptzkbnlx01/13/25documented as of this encounter
--- OUTSIDE RECORDS SUMMARY | 2025-07-11 13:31 | XMS_ITS | Encounter Summary ---
Author Organization [facility] Address [address] [place] [address] Care Team Providers Care Airport Clerk Name Role Phone Jack Vogt MD Primary Care Provider [phone] Chantelle Recio CERTIFIED REGISTERED NURSE PRACTITIONER Unavailable [phone] Valerie Go RN Unavailable [phone] Encounter Details DateTypeDepartmentCare Team (Latest Contact Info)Krwvfsrjmtb87/23/2025Patient Outreach [facility] POPULATION [facility] [address] [place] [phone] Chantelle Recio, CERTIFIED REGISTERED NURSE PRACTITIONER [address] [place], [place] [id number] Social History Tobacco UseTypesPacks/DayYears UsedDateSmoking Tobacco: FormerCigarettes Smokeless Tobacco: NeverAlcohol UseStandard Drinks/WeekCommentsDefer0 (1 standard drink = 0.6 oz pure alcohol)caffeine yes type:coffeePHQ-2AnswerDate RecordedPatient Health Questionnaire-2 Oklyu383CommentsUnknown Sex and Gender InformationValueDate RecordedSex Assigned at BirthNot on file Legal TvbKxgugv36/15/2023 6:57 PM EDTGender IdentityNot on fileSexual OrientationNot [...] MemberRelationshipSpecialtyStart DateEnd Date Jack Vogt MD [address] [facility] [address] [place] [address] PCP - GeneralInternal Medicine01/24/23 Chantelle Recio, HIEU [address] [place], [place] [address] Social WorkerFamily Medicine06/10/25 Valerei Go, RN [address] [facility] [address] [place] [address] Registered NurseFamily Yujefqgy69/13/25documented as of this encounter
--- OUTSIDE RECORDS SUMMARY | 2025-07-11 13:31 | XMS_ITS | Encounter Summary ---
Author Organization [facility] Address [address] [place] [address] Care Team Providers Care Exhaust Emissions Inspector Name Role Phone Jack Vogt MD Primary Care Provider [phone] Chantelle Recio LICENSED OPTICAL DISPENSER Unavailable [phone] Valerie Go RN Unavailable [phone] Encounter Details DateTypeDepartmentCare Team (Latest Contact Info)Trtyxybcbfi66/21/2025Telephone [facility] [address] [facility] [address] [place] [address] Jack Vogt MD [address] [facility] [address] [place], [place] [address] Social History Tobacco UseTypesPacks/DayYears UsedDateSmoking Tobacco: NeverSmokeless Tobacco: NeverAlcohol UseStandard Drinks/WeekCommentsDefer0 (1 standard drink = 0.6 oz pure alcohol)caffeine yes type:coffeePHQ-2AnswerDate RecordedPatient Health Questionnaire-2 Tlrdl686CommentsUnknownSex and Gender InformationValueDate RecordedSex Assigned at BirthNot on fileLegal SexFemale 11/30/2022 6:57 PM EDTGender IdentityNot on fileSexual OrientationNot on file documented as of this encounter Miscellaneous Notes * Telephone Encounter - Jaki Barnett MA - 07/09/2025 10:40 AM EDT Faxed over dx list to number given * Telephone Encounter - Brianne Portillo - 07/09/2025 9:54 AM EDT [facility] called back stating that they need a list of the patients diagnoses signed and dated by Sin and faxed to [phone]. She said they have the visit by brannon mckeon on 06/27 but it does not have all of her diagnoses on it and they need that for a face to face. * Telephone Encounter - CARO JOHNS - 07/08/2025 2:12 PM EDT Twyla from [facility] called and has some concerns with [...] medication Care PlanPatient on antidepressant monitoring planRenetta iFeld NP documented as of this encounter Visit Diagnoses Not on filedocumented in this encounter Additional Health Concerns Active ProblemsNoted DateDiagnosed DatePatient on antidepressant monitoring plan 5AssessmentNoted TimePHQ-9 Depression Total Score: 1506 11:31 AM EDTdocumented as of this encounter Care Teams Team MemberRelationshipSpecialtyStart DateEnd Date Jack Vogt MD [address] [place] [address] PCP - GeneralInternal Medicine01/24/23 Chantelle Recio LSW [address] [place] [address] Social WorkerFamily Medicine06/10/25 Valerie Go, DEBORA [address] [place] [address] Registered NurseFamily Hcqqtgiw70/13/25documented as of this encounter
--- OUTSIDE RECORDS SUMMARY | 2025-07-11 13:31 | XMS_ITS | Encounter Summary ---
Author Organization [facility] Address [address] [place] [address] Care Team Providers Care Deep Submergence Vehicle Operator Name Role Phone Jack Vogt MD Primary Care Provider [phone] Chantelle Recio AGRICULTURAL COMMODITIES INSPECTOR Unavailable [phone] Valerie Go RN Unavailable [phone] Encounter Details DateTypeDepartmentCare Team (Latest Contact Info)Gpyvtadxifc02/22/2025Patient Outreach [facility] [address] [place] [address] Valerie Go, DEBORA [address] [facility] [address] [place] [address] Social History Tobacco UseTypesPacks/DayYears UsedDateSmoking Tobacco: FormerCigarettes Smokeless Tobacco: Never Tobacco Cessation:Counseling Given: Not Answered Alcohol UseStandard Drinks/WeekCommentsDefer0 (1 standard drink = 0.6 oz pure alcohol)caffeine yes type:coffeePHQ-2AnswerDate RecordedPatient Health Questionnaire-2 Gdnjm789CommentsUnknownSex and Gender InformationValueDate RecordedSex Assigned at BirthNot [...] Pt states she has an appt with [facility] but was in the [...] MemberRelationshipSpecialtyStart DateEnd Date Jack Vogt MD [address] [facility] [address] [place] [address] PCP - GeneralInternal Medicine01/24/23 Chantelle Recio LSW [address] [place] [address] Social WorkerFamily Medicine06/10/25 Valerie Go, RN [address] [facility] [address] [place] [id number] Registered NurseFamily Yyadqxhu81/13/25documented as of this encounter
--- OUTSIDE RECORDS SUMMARY | 2025-07-11 13:31 | XMS_ITS | Encounter Summary ---
Author Organization [facility] Address [address] [place] [address] Care Team Providers Care Window Covering Sales Consultant Name Role Phone Jack Vogt MD Primary Care Provider [phone] Chantelle Recio Unavailable [phone] Valerie Go RN Unavailable Encounter Details DateTypeDepartmentCare Team (Latest Contact Info)Iwrxjxmcwbw55/06/2025Telephone [facility] [address] [place] [address] [place] [address] Jack Vogt MD [address] [facility] [address] [place], [place] [address] Social History Tobacco UseTypesPacks/DayYears UsedDateSmoking Tobacco: NeverSmokeless Tobacco: NeverAlcohol UseStandard Drinks/WeekCommentsDefer0 (1 standard drink = 0.6 oz pure alcohol)caffeine yes type:coffeePHQ-2AnswerDate RecordedPatient Health Questionnaire-2 Amudq107CommentsUnknownSex and Gender InformationValueDate RecordedSex Assigned at BirthNot [...] HIEU Reese> Most recent labs faxed to [facility] Dr. Espinosa * HIEU Reese - 06/24/2025 8:31 AM EDT <June 24, 2025, 08:31 - HIEU Reese> Spoke to pt yesterday. She is agreeable to home visit by [facility]. Discussed that she was already referred for home delivered meals, but denies receiving call for this. Advised LOGISTICS OPERATIONS DIRECTOR would follow up on referral. Called [facility]. They state they are currently at capacity and pt is on a waiting list. <June 24, 2025, 09:55 - HIEU Reese> Called pt, notified of waiting list for home delivered meals. Offered paid meal delivery service. Pt has tried [employer] before and didn't like it. She will wait to hear from [employer]. Also advised that our home-visiting [facility] Malia will be contacting her to schedule. Pt has not received [facility] hardship form yet. Enc her [...] MemberRelationshipSpecialtyStart DateEnd Date Jack Vogt MD [address] [facility] [address] [place] [address] PCP - GeneralInternal Medicine01/24/23 Chantelle Recio, HIEU [address] [place] [address] Social WorkerFamily Medicine06/10/25 Valerie Go, DEBORA [address] [facility] [address] [place] [address] Registered NurseFamily Wnjofcht68/13/25documented as of this encounter
--- OUTSIDE RECORDS SUMMARY | 2025-07-11 13:31 | XMS_ITS | Encounter Summary ---
Author Organization [facility] Address [address] [place] [address] Care Team Providers Care Lap Machine Operator Name Role Phone Jack Vogt MD Primary Care Provider [phone] Chantelle Recio BOX PERSON Unavailable [phone] Encounter Details DateTypeDepartmentCare Team (Latest Contact Info)Eejlozffyyd93/10/2025Telephone [facility] [address] [facility] [address] [place] [phone] 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 NP [address] [place] [address] Social History Tobacco UseTypesPacks/DayYears UsedDateSmoking Tobacco: NeverSmokeless Tobacco: NeverAlcohol UseStandard Drinks/WeekCommentsDefer0 (1 standard drink = 0.6 oz pure alcohol)caffeine yes type:coffeePHQ-2AnswerDate RecordedPatient Health Questionnaire-2 Gzrbf346CommentsUnknownSex and Gender InformationValueDate RecordedSex Assigned at BirthNot [...] date of 1950, her phone number is [phone] last [id number] We were unaware that I believe probably [...] me. At the earliest convenience, it is [phone]. My name is Fabby, I am to [...] MemberRelationshipSpecialtyStart DateEnd Date Jack Vogt MD [address] [facility] 110 [place] [address] PCP - GeneralInternal Medicine01/24/23 Chantelle Recio, HIEU [address] [place] [address] Social WorkerFamily Medicine06/10/25documented as of this encounter
--- OUTSIDE RECORDS SUMMARY | 2025-07-11 13:31 | XMS_ITS | Encounter Summary ---
Author Organization [facility] Address [address] [place] [address] Care Team Providers Care Regulatory Leader Name Role Phone Jack Vogt MD Primary Care Provider [phone] Chantelle Recio SALESPERSON FURS Unavailable [phone] Valerie Go RN Unavailable [phone] Encounter Details DateTypeDepartmentCare Team (Latest Contact Info)Ssdcvzadbrt01/22/2025bstract [facility] [address] [facility] 110 [place] [address] Jack Vogt MD [address] [facility] 110 [place], [place] [address] Social History Tobacco UseTypesPacks/DayYears UsedDateSmoking Tobacco: FormerCigarettes Smokeless Tobacco: NeverAlcohol UseStandard Drinks/WeekCommentsDefer0 (1 standard drink = 0.6 oz pure alcohol)caffeine yes type:coffeePHQ-2AnswerDate RecordedPatient Health Questionnaire-2 Kxvep516CommentsUnknown Sex and Gender InformationValueDate RecordedSex Assigned at BirthNot on file Legal ZziTmijcl14/15/2023 6:57 PM EDTGender IdentityNot on fileSexual OrientationNot [...] MemberRelationshipSpecialtyStart DateEnd Date Jack Vogt MD [address] [facility] [address] [place] [address] PCP - GeneralInternal Medicine01/24/23 Chantelle Recio, HIEU [address] [place] [address] Social WorkerFamily Medicine06/10/25 Valerie Go, DEBORA [address] [facility] 230 [place] [address] Registered NurseFamily Juulggba28/13/25documented as of this encounter
--- OUTSIDE RECORDS SUMMARY | 2025-07-11 13:31 | XMS_ITS ---
Author Organization [facility] Address [address] [place] [address] Care Team Providers Care Religious Education Teacher Name Role Phone Jack Vogt MD Primary Care Provider [phone] Chantelle Recio Unavailable [phone] Valerie Go RN Unavailable [phone] Emergency Department Transitional Care Management (TCM) Status:Identified (Enrolling) Start date:07/09/2025 Enrollment reason:Identified using hospital discharge data Overview Discharged from [facility] ER on 07/09. Please contact within 2 days of discharge for ERTOC and schedule a follow-up appointment if needed. NameNan HAGEN(Responsible Staff)Individual Pension Adviser [phone] Continued Care and Services Coordination
--- OUTSIDE RECORDS SUMMARY | 2025-07-11 13:31 | XMS_ITS | Encounter Summary ---
Author Organization [facility] Address [address] [place] [address] Care Team Providers Care Manager Telemetry Name Role Phone Jack Vogt MD Primary Care Provider [phone] Chantelle Recio ANODIZER Unavailable [phone] Valerie Go RN Unavailable [phone] Encounter Details DateTypeDepartmentCare Team (Latest Contact Info)Ahoogqtntyf94/22/2025Clinisync Result Encounter [facility] External Department Unsolicited Provider, Generic External Data Social History Tobacco UseTypesPacks/DayYears UsedDateSmoking Tobacco: FormerCigarettes Smokeless Tobacco: NeverAlcohol UseStandard Drinks/WeekCommentsDefer0 (1 standard drink = 0.6 oz pure alcohol)caffeine yes type:coffeePHQ-2AnswerDate RecordedPatient Health Questionnaire-2 Jiduy190CommentsUnknown Sex and Gender InformationValueDate RecordedSex Assigned at BirthNot on file Legal PhtVbvkvz58/15/2023 6:57 PM EDTGender IdentityNot on fileSexual OrientationNot on filedocumented as of this encounter Plan of Treatment Not on file documented as of this encounter Goals GoalPatient Goal TypeAssociated ProblemsRecent ProgressPatient-Stated?Author Help patient manage antidepressant medication Care PlanPatient on antidepressant monitoring eRnetta Enamorado NP documented as of this encounter Procedures Procedure NamePriorityDate/TimeAssociated DiagnosisCommentsVITAMIN X06Gqjccgn 07/09/2025 2:40 PM EDT [facility] VITAMIN D 25 ZKYofweee49/22/2025 2:40 PM EDT [facility] FQWGEcupeno03/22/2025 2:40 PM EDT [facility] PTH, SJSPJUDWQGFKEMLueqbgu06/22/2025 2:40 PM EDT [facility] CBC WITH PLATELET NO TPWLUYQKEUBDYiblkdv45/22/2025 2:40 PM EDT [facility] FMBBCCASDumttze48/22/2025 2:40 PM EDT ALL URIC TDGXYqsgeaa31/22/2025 2:40 PM EDT ALL RENAL FUNCTION LEIGVMshukcs12/22/2025 2:40 PM EDT ALL BXOKIIVKKBtxqqsz57/22/2025 2:40 PM EDT ALL FOLIC YVLJXcbmfyr35/22/2025 2:40 PM EDT documented in this encounter Results * VITAMIN B12 (07/09/2025 2:40 PM EDT)ComponentValueRef RangeTest MethodAnalysis TimePerformed AtPathologist SignatureVITAMIN [id number] - 1245 pg/mLTBHComment: Performed at: ?? - [facility] [address] ??[id number] Bracelet Maker Novelty: Raul Medel PhD, Phone: ??[phone] Specimen (Source)Anatomical Location / LateralityCollection Method / Volume Collection TimeReceived Time07/09/2025 2:40 PM EDT1 3:28 PM EDT Narrative CLINISYNC - 07/11/2025 4:07 AM EDT Authorizing ProviderResult TypeResult StatusGeneric External Data ProviderLAB BLOOD ORDERABLESFinal ResultPerforming OrganizationAddressCity/State/ZIP Code Phone Number CLINEMILY [facility] * (ABNORMAL) [facility] PTH, INTRAOPERATIVE (07/09/2025 2:40 PM EDT)ComponentValueRef RangeTest MethodAnalysis TimePerformed AtPathologist SignaturePTH, HYQYUE16(A) 15 - 65 pg/mLTBHComment: Performed at: ?? - [facility] [address] ??[id number] Bracelet Maker Novelty: Raul Medel PhD, Phone: ??[phone] Specimen (Source)Anatomical Location / LateralityCollection Method / Volume Collection TimeReceived Time07/09/2025 2:40 PM EDT1 3:28 PM EDT Narrative CLINISYNC - 07/10/2025 12:08 PM EDT Authorizing ProviderResult TypeResult StatusGeneric External Data Provider CLINISYNCFinal ResultPerforming OrganizationAddSt. Mary Medical Centerty/State/ZIP CodePhone Number CLINISYNC TB * (ABNORMAL) ALL MAGNESIUM (07/09/2025 2:40 PM EDT)ComponentValueRef RangeTest MethodAnalysis TimePerformed AtPathologist SignatureMAGNESIUM0.6(LL)1.8 - 2.4 mg/dLTBHComment:RESULTS CALLED TOSpecimen (Source)Anatomical Location / LateralityCollection Method / VolumeCollection TimeReceived Time07/09/2025 2:40 PM EDT1 3:28 PM EDT Narrative CLINISYNC - 07/09/2025 4:41 PM EDT Authorizing ProviderResult TypeResult StatusGeneric External Data Provider CLINISYNCFinal ResultPerforming OrganizationAddSt. Mary Medical Centerty/State/ZIP CodePhone Number CLINISYNC TB * (ABNORMAL) ALL URIC ACID (07/09/2025 2:40 PM EDT)ComponentValueRef RangeTest MethodAnalysis TimePerformed AtPathologist SignatureURIC ACID8.1(H)2.6 - 6.0 mg/dLTBHSpecimen (Source)Anatomical Location / LateralityCollection Method / VolumeCollection TimeReceived Time07/09/2025 2:40 PM EDT1 3:28 PM EDT Narrative CLINISYNC - 07/09/2025 4:41 PM EDT Authorizing ProviderResult TypeResult StatusGeneric External Data Provider CLINISYNCFinal ResultPerforming OrganizationAddSt. Mary Medical Centerty/State/ZIP CodePhone Number CLINISYNC [facility] * (ABNORMAL) ALL RENAL FUNCTION PANEL (07/09/2025 2:40 PM EDT)ComponentValueRef RangeTest MethodAnalysis TimePerformed AtPathologist CdfqzylheOVZJCK970516 - 145 mmol/LTBHPOTASSIUM3.2(L)3.5 - 5.1 mmol/QEZWSJPFFMUG93085 - 107 mmol/LTBH CAR[place] FVAOANM69.921.0 - 32.0 mmol/LTBHANION GAP16.4BCXVLBPUET0610 - 106 mg/dL TBHBLOOD UREA MGEHCEGZ28.0(H)7.0 - 18.0 mg/dLTBHCREATININE3.20(H)0.55 - 1.02 mg/dLTBHTBH EGFR-AF LZCXZWME95(L)>=60 mL/min/1.73m 2TBHTBH EGFR-NON AF FMERAYBK48(L)>=60 mL/min/1.73m 2TBHBUN CREATININE RATIO20.8IOHJNBPEMG4.1(L)8.5 - 10.1 mg/dLTBHPHOSPHORUS4.22.6 - 4.7 mg/dLTBHALBUMIN LEVEL3.1(L)3.4 - 5.0 g/dLTBHSpecimen (Source)Anatomical Location / LateralityCollection Method / VolumeCollection TimeReceived Time07/09/2025 2:40 PM EDT1 3:28 PM EDT Narrative CLINISYNC - 07/09/2025 4:41 PM EDT Authorizing ProviderResult TypeResult StatusGeneric External Data Provider CLINISYNCFinal ResultPerforming OrganizationAddressCity/State/ZIP CodePhone Number [facility] * (ABNORMAL) ALL FOLIC ACID (07/09/2025 2:40 PM EDT)ComponentValueRef RangeTest MethodAnalysis TimePerformed AtPathologist SignatureFOLATE4.80(L)8.60 - 58.90 ng/mLTBHSpecimen (Source)Anatomical Location / LateralityCollection Method / VolumeCollection TimeReceived Time07/09/2025 2:40 PM EDT1 3:28 PM EDT Narrative CLINISYNC - 07/09/2025 4:27 PM EDT [facility] DROP OFF Authorizing ProviderResult TypeResult StatusGeneric External Data Provider CLINISYNCFinal ResultPerforming OrganizationAddressty/State/ZIP CodePhone Number KATHY LAYNE * [facility] VITAMIN D 25 [place] (07/09/2025 2:40 PM EDT)ComponentValueRef RangeTest Method Analysis TimePerformed AtPathologist SignatureVITAMIN D28.8ng/mLTBHComment: <20 ng/mL Vit D deficient 20-<30 ng/mL Vit D insufficient 30-100 ng/mL ??Vit D sufficient >100 ng/mL Potential Toxicity Specimen (Source)Anatomical Location / LateralityCollection Method / Volume Collection TimeReceived Time07/09/2025 2:40 PM EDT1 3:28 PM EDT [facility] - 07/09/2025 4:27 PM EDT [facility] DROP OFF Authorizing ProviderResult TypeResult StatusGeneric External Data Provider [facility]CC[facility] ResultPerforming OrganizationAddressty/State/ZIP CodePhone Number KATHY [facility] * [facility] FERRITIN (07/09/2025 2:40 PM EDT)ComponentValueRef RangeTest Method Analysis TimePerformed AtPathologist WhbtdpxmfXPXFONDJ72.08.0 - 252.0 ng/mLTBH Specimen (Source)Anatomical Location / LateralityCollection Method / Volume Collection TimeReceived Time07/09/2025 2:40 PM EDT1 3:28 PM EDT [facility] - 07/09/2025 4:27 PM EDT [facility] DROP OFF Authorizing ProviderResult TypeResult StatusGeneric External Data Provider CLINISYNCSt[facility] Hospitalal ResultPerforming OrganizationAddSt. Mary Medical Centerty/State/ZIP CodePhone Number KATHY [facility] * (ABNORMAL) [facility]BC (07/09/2025 2:40 PM EDT)ComponentValueRef Range Test MethodAnalysis TimePerformed AtPathologist SignatureTBH IRON40.0(L)50.0 - 170.0 ug/dLTBHTBH TOTAL IRON BINDING SXDYJIQW084.0250.0 - 450.0 ug/dLTBHTBH PERCENT IRON OUJHSRKKQT03.3%TBHSpecimen (Source)Anatomical Location / LateralityCollection Method / VolumeCollection TimeReceived Time07/09/2025 2:40 PM EDT1 3:28 PM EDT Narrative CLINISYNC - 07/09/2025 4:06 PM EDT Authorizing ProviderResult TypeResult StatusGeneric External Data Provider CLINISYNCFinal ResultPerforming OrganizationAddressCity/State/ZIP CodePhone Number KATHY [facility] * (ABNORMAL) [facility] CBC WITH PLATELET NO DIFFERENTIAL (07/09/2025 2:40 PM EDT) ComponentValueRef RangeTest MethodAnalysis TimePerformed AtPathologist SignatureTBH WBC4.34.0 - 11.0 10 3/uLTBHTBH RBC3.14(L)4.20 - 5.40 10 6/uLTBH TBH HGB9.1(L)12.0 - 16.0 g/dLTBHTBH HCT26.8(L)36.0 - 48.0 %TBHTBH MCV85.481.0 - 99.0 fLTBHTBH MCH29.026.7 - 34.0 pgTBHTBH MCHC34.029.9 - 35.2 g/dLTBHTBH RDW 17.8(H)11.0 - 15.0 %TBHTBH HGO798455 - 450 10 3/uLTBHTBH MPV10.79.5 - 13.5 fL TBHSpecimen (Source)Anatomical Location / LateralityCollection Method / Volume Collection TimeReceived Time07/09/2025 2:40 PM EDT1 3:28 PM EDT Narrative CLINISYNC - 07/09/2025 3:55 PM EDT Authorizing ProviderResult TypeResult StatusGeneric External Data Provider CLINISYNCFinal ResultPerforming OrganizationAddressCity/State/ZIP CodePhone Number KATHY [facility] documented in this encounter Visit Diagnoses Not on filedocumented in this encounter Additional Health Concerns Active ProblemsNoted DateDiagnosed DatePatient on antidepressant monitoring plan 02/25/2025ssessmentNoted TimePHQ-9 Depression Total Score: 1506 11:31 AM EDTdocumented as of this encounter Care Teams Team MemberRelationshipSpecialtyStart DateEnd Date Jack Vogt MD [address] [place] [address] PCP - GeneralInternal Medicine01/24/23 Chantelle Recio LSW [address] [place], [place] [id number] Social WorkerFamily Medicine06/10/25 Valerie Go, RN [address] [facility] [address] [place] [address] Registered NurseFamily Zvwvkiku30/13/25documented as of this encounter
--- OUTSIDE RECORDS SUMMARY | 2025-07-11 13:31 | XMS_ITS | Clinical Summary ---
Author Organization [facility] Address [address] [place] [address] Phone Care Team Providers Care Reset Merchandiser Name Role Phone Unavailable Primary Care Provider Unavailabl e Social History Tobacco UseTypesPacks/DayYears UsedDateSmoking Tobacco: Never Assessed CommentsUnknownSex and Gender InformationValueDate RecordedSex Assigned at Not on fileLegal DgkKhplsj11/26/2022 6:07 AM ESTGender IdentityNot on fileSexual OrientationNot on file Plan of Treatment Health MaintenanceDue DateLast DoneCommentsCT Lkklynhmugbx84/20/1950Colonoscopy 1950Colorectal Cancer Zelylmhkd02/20/1950FIT-DNA (Cologuard)1950FIT 1950Lipid Panel1950 3805Ppoonuvvidnev01/20/1950Welcome to Medicare Visit 1950MMR Vaccines (1 of [...]
--- OUTSIDE RECORDS SUMMARY | 2025-07-11 13:31 | XMS_ITS | Encounter Summary ---
Author Organization [facility] Address [address] [place] [address] Care Team Providers Care Security Orderly Name Role Phone Jack Vogt MD Primary Care Provider [phone] Chantelle Recio DANCE INSTRUCTOR Unavailable [phone] Valerie Go RN Unavailable [phone] Encounter Details DateTypeDepartmentCare Team (Latest Contact Info)Padyrpijtib19/16/2025Abstract [facility] [address] [facility] [address] [place] [address] Jack Vogt MD [address] [facility] [address] [place], [place] [id number] Social History Tobacco UseTypesPacks/DayYears UsedDateSmoking Tobacco: NeverSmokeless Tobacco: NeverAlcohol UseStandard Drinks/WeekCommentsDefer0 (1 standard drink = 0.6 oz pure alcohol)caffeine yes type:coffeePHQ-2AnswerDate RecordedPatient Health Questionnaire-2 Ffggo117CommentsUnknownSex and Gender InformationValueDate RecordedSex Assigned at BirthNot [...] MemberRelationshipSpecialtyStart DateEnd Date Jack Vogt MD [address] [facility] [address] [place] [address] PCP - GeneralInternal Medicine01/24/23 Chantelle Recio, HIEU [address] [place] [address] Social WorkerFamily Medicine06/10/25 Valerie Go, RN [address] [facility] [address] [place] [address] Registered NurseFamily Hkljpjla63/13/25documented as of this encounter
--- OUTSIDE RECORDS SUMMARY | 2025-07-11 13:32 | XMS_ITS | CCD ---
Author Organization [facility] Care Team Providers Care Water Taxi Driver Name Role Phone DESIRAE, SHAKA H. Unavailable Unavailable JACK VOGT Unavailable Unavailable DESIRAE, SHAKA H. Unavailable Unavailable DESIRAE, SHAKA H. Unavailable Unavailable JACK VOGT Unavailable Unavailable DESIRAE, SHAKA H. Unavailable Unavailable DESIRAE, SHAKA H. Unavailable Unavailable JACK VOGT Unavailable Unavailable THOMAS Vogt Primary Care Provider [phone] THOMAS Vogt Referring Provider Self, Referral Attending Provider Unavailable JACK VOGT Primary Care Physician JOHN LUTHER Attending Unavailable HZOU, JOHN Admitting Unavailable JOHN LUTHER Consulting Unavailable [...] Consulting Unavailable THOMAS Vogt Primary Care Provider MD Kevin Hamilton II Attending Provider [phone] Self, Referral Attending Provider Unavailable Sin BEAULIEU, Jack Boudreaux Primary Care Provider MariaL uisa Thomson Attending Unavailable CARDENAS, Alfredo R Attending [...] Admit Provider Rajiv Trejo MD Attending Provider Nick Antonio MD Other Provider [phone] Kana Vazquez MD Other Provider Judy Espinosa MD Other Provider Estrella Velásquez MD Other Provider Andrew Arrington MD Attending Provider Andrew Arrington MD Other Provider Estefania Yoder APRN Other Provider Keith Koehler DO Other Provider [phone] Pilo Harry MD Other Provider Tony Monterroso [...] Chantelle Shah Unavailable Donavan CAZARES, Valerie Unavailable [phone] Allergies Allergy ClassificationReported Allergen(s)Allergy TypeDate of OnsetReaction(s) FacilityIodine (and Iodine containting drugs) (2 sources)Iodine; Translations: [Iodine]Drug Hsasrox52-73-4745Seflwimu of skin (disorder)[facility] (1 source)Pneumococcal vaccineDrug Jjutkex93-18-8795OcvguQcxxjeneoAultman Hospitalhellfish (1 source)Shellfish; Translations: [shellfish]Food AllergyUnknown (qualifier value)[facility] (1 source)vareniclineDrug Wymrvlk14-52-1355NvdxgfmaPbmvekmmfClermont County Hospital (20 sources)Iodine; Translations: [Iodine]Drug Ncjgihl51-18-5650Bnwnahiq of skin (disorder)[facility] (5 sources)Pneumococcal vaccine; Translations: [pneumococcal vaccine]Drug Gtzwkqy74-29-7376XctjbFqlkllpilMercy Health [facility] (20 sources)varenicline; Translations: [VARENICLINE]Drug Siwsrtc35-05-6082 [facility] (6 sources)Kfseewg-ZNU-QbK Reductase Inhibitor; Translations: [Autdfov-ZIQ-JjF Reductase Inhibitor]Allergy to bwtipefys79-08-6562Aufgmjn ReactionOhiohealth Riverside Methodist Hospital (20 sources)HMG-CoA reductase inhibitor; Translations: [statins]Drug allergy 00-70-9380Wwobvao (qualifier value), UnknownExec[facility] (6 sources)Shellfish; Translations: [shellfish]Drug allergyUnknown (qualifier value)[facility] (2 sources)black walnut pollen extract; Translations: [BCPAYTD-JAL-LKA REDUCTASE INHIBITORS]Drug Ymhcbno42-75-8006FsyOhiohealth [facility] (1 source)vareniclineDrug Fjebehu63-00-4422EnpOhiohealth O'Bleness Hospital [facility] (1 source)Pneumovax 23Drug allergy (disorder)06-69-3845GarOhiohealth [facility] (20 sources)atorvastatinDrug Ydbbzew85-95-3351[facility] (20 sources)LovastatinAllergy to zrhqzvcpu26-22-6519PW[facility] (20 sources)PravastatinDrug Wdeojhl82-03-9906GZHJ [facility] (20 sources)SimvastatinAllergy to cybovcxym09-36-1518BPAD [facility] (20 sources)Pneumococcal Vac PolyvalentDrug Dlzrvqv31-89-1191LBRY [facility] (20 sources)nickel sulfate; Translations: [NICKEL]Drug Buabugt67-87-8304 [facility] (20 sources)ShellfishPropensity to adverse bzrwtxido28-13-6494RzywqeorqsaPOIW Healthcare (20 sources)OtherAllergy to cyttatemh52-26-9082HZAX [facility] (1 source)Contrast media; Translations: [RED DYE]Propensity to adverse reactions to drug (disorder)17-67-9047MdhcdbwsiyShelby [facility] (1 source)Pneumococcal vaccine; Translations: [PNEUMOCOCCAL 23-CRUZ PS VACCINE] Drug Uonupok52-25-1331SflhhumaqaShelby Memorial Hospital [facility]ository (1 source)Shellfish; Translations: [SHELLFISH DERIVED]Propensity to adverse reactions to drug (disorder)74-97-4653BdrrkxfdvkShelby Memorial Hospital Rep[facility] Medications Current Medications MedicationDrug Class(es)DatesSig (Normalized)Sig (Original)acetaminophen 325 mg / HYDROcodone bitartrate 5 mg oral tablet (11 sources)Opioid AgonistStart: 12-12-2024 End: 52-52-6089nvro 1 tablet by mouth every six hours for painHYDROcodone- acetaminophen ([place]) 5-325 MG tablet Indications: Spinal stenosis, lumbar region with neurogenic claudication Take 1 tablet by mouth every 6 (six) hours if needed for severe pain 60 tablet 12/12/2024 01/11/2025 ActiveStart: 05-76-4888gbrawzhouggku-hydrocodone 325 mg-5 mg oral tablet Refill(s) 0 Start Date: 09/26/22 Status: OrderedStart: 03-24-2021 End: 32-80-9900iazd 1 tablet by mouth every six hours as needed for pain Hydrocodone-Acetaminophen 5-325 mg tablet Discontinued 1 TAB PO Q6H as needed for Pain March 24, 2021 12:00am March 27, 2021 11:36amalendronic acid 70 mg oral tablet (1 source)BisphosphonateStart: 01-16-3405gjsmtrilzmm 70 mg Tab Refills(s) 0 Start Date: 09/26/22 Status: Orderedapixaban 2.5 mg oral tablet (20 sources)Factor Xa InhibitorStart: 44-07-6529ehhf 1 tablet by mouth in the morningapixaban (Eliquis) 2.5 MG tablet Indications: Personal history of other venous thrombosis and embolism Take 1 tablet (2.5 mg) by mouth in the morning and 1 tablet (2.5 mg) before bedtime. 200 tablet 3 01/27/2025 ActiveStart: 34-45-7370ubbg 1 tablet by mouth twice dailyapixaban (Eliquis) 2.5 MG tablet Indications: Personal history of other venous thrombosis and embolism TAKE 1 TABLET BY MOUTH TWICE A DAY 180 tablet 1 12/27/2024 ActiveStart: 42-11-6589mpvb 1 tablet by mouth twice dailyapixaban (Eliquis) 2.5 MG tablet Indications: Personal history of other venous thrombosis and embolism TAKE 1 TABLET BY MOUTH TWICE A DAY 180 tablet 1 05/13/2024 ActiveStart: 73-01-3885bbcu 2.5 mg by mouth twice dailyStart: 45-15-2556ogtp 1 tablet by mouth twice dailyApixaban (Eliquis) 5 mg tablet Active 5 MG PO Twice daily March 24, 2021 12:00am On Hold: Resume on 03/31/21. Complies with drug therapyaspirin 81 mg delayed release oral tablet (20 sources)Platelet Aggregation Inhibitor, Nonsteroidal Anti-inflammatory Drug Start: 34-14-7953bhrz 1 mg by mouth once dailyaspirin 81 mg Oral EC Tab mg tab(s), Oral, Daily, Refills(s) 0 Start Date: 03/04/22 Status: OrderedStart: 40-92-9882ojra 1 tablet by mouth once daily End: 30-42-0198alei 1 tablet by mouth once dailyaspirin 81 MG chewable tablet take 1 by Oral route every day Oral 02/25/2025 Discontinued (Other)buPROPion hydrochloride 75 mg oral tablet (7 sources)AminoketoneStart: 02-25-2025 End: 05-66-5537zeqa 1 tablet by mouth at bedtimebuPROPion (Wellbutrin) [...] 180 tablet 3 03/25/2025 ActiveStart: 02-22-2024 End: 41-21-8540lbro 1 tablet by mouth in the morningcarvedilol (Coreg) 25 MG tablet Indications: Benign essential hypertension (CMS/HCC) TAKE 1 TABLET BY MOUTH IN THE MORNING AND 1 TABLET IN THE EVENING. TAKE WITH MEALS. 180 tablet 3 10/22/2024 02/25/2025 Discontinued (Other)Start: 45-22-1961foynhptrbc 12.5 mg Tab Refills(s) 0 Start Date: 10/23/23 Status: OrderedcloNIDine hydrochloride 0.1 mg oral tablet (20 sources)Central alpha-2 Adrenergic AgonistStart: 03-20-2025 End: 42-44-7393hugt 1 tablet by mouth in the morning, then take 1 tablet by mouth in the evening, then take 1 tablet by mouth at bedtimecloNIDine (Catapres) 0.1 MG tablet Indications: Benign essential hypertension Take 1 tablet (0.1 mg) by mouth in the morning and 1 tablet (0.1 mg) in the evening and 1 tablet (0.1 mg) before bedtime.270 tablet 3 03/31/2025 ActiveStart: 02-22-2024 End: 28-01-1636zdpw 1 tablet by mouth in the morningcloNIDine (Catapres) 0.1 MG tablet Indications: Benign essential hypertension (CMS/HCC) Take 1 tablet (0.1 mg) by mouth in the morning and 1 tablet (0.1 mg) before bedtime. 60 tablet 11 02/22/2024 12/12/2024 Discontinueddoxazosin 2 mg oral tablet (16 sources)alpha-Adrenergic BlockerStart: 03-21-2025 End: 59-86-0830lnda 1 tablet by mouth in the morningdoxazosin (Cardura) 2 MG tablet Indications: Atherosclerosis of [place] coronary artery of [place] heart with stable angina pectoris TAKE 1 TABLET (2 MG) BY MOUTH IN THE MORNING 90 tablet 1 06/23/2025 10/21/2025 ActiveDULoxetine 30 mg Cap-EC (5 sources)Start: 04-45-9330WZPsqrximg 30 mg Cap-EC Refills(s) 0 Start Date: 03/04/22 Status: OrderedDULoxetine 60 mg Cap-EC (5 sources)Start: 94-50-5266YLPxpijtwe 60 mg Cap-EC Refills(s) 0 Start Date: 03/04/22 Status: Orderedescitalopram 5 mg oral tablet (16 sources)Serotonin Reuptake InhibitorStart: 03-21-2025 End: 15-62-0934jqev 1 tablet by mouth once daily in the morningescitalopram (Lexapro) 5 MG tablet Indications: Depressive disorder TAKE 1 TABLET BY MOUTH EVERY DAY IN THE MORNING 90 tablet 1 06/23/2025 Activeezetimibe 10 mg oral tablet (20 sources)Dietary Cholesterol Absorption InhibitorStart: 11-93-3125kdls 1 tablet by mouth once dailyezetimibe (Zetia) 10 MG tablet Indications: Stage 3b chronic kidney disease (CMS-HCC) TAKE 1 TABLETBY MOUTH EVERY DAY 90 tablet 3 12/27/2024 Activefenofibrate 145 mg oral tablet (20 sources)Peroxisome Proliferator Receptor alpha AgonistStart: 70-37-3590sypi 1 tablet by mouth once dailyfenofibrate (Tricor) 145 MG tablet Indications: Mixed hyperlipidemia TAKE 1 TABLET BY MOUTH EVERY DAY 90 tablet 4 10/23/2024 Activefurosemide 40 mg oral tablet (15 sources)Loop DiureticStart: 11-60-6773awef 1 tablet by mouth in the morning furosemide (Lasix) 40 MG tablet Take 40 mg by mouth in the morning and 40 mg before bedtime. 04/11/2025 ActiveStart: 03-24-2021 End: 17-92-0890vpzi 1 tablet by mouth once daily as neededFurosemide 40 mg tablet Discontinued 40 MG PO Daily as needed for swelling March 24, 2021 12:00am April 08, 2025 4:13pmhydrALAZINE hydrochloride 100 mg oral tablet (20 sources)Arteriolar VasodilatorStart: 03-31-2025 End: 08-29-6068fqrw 1 tablet by mouth in the morning, [...] 11 03/31/2025 03/31/2026 Active Start: 02-22-2024 End: 18-37-3278zceu 1 tablet by mouth in the morning, then take 1 tablet by mouth in the evening, then take 1 tablet by mouth at bedtimehydrALAZINE (Apresoline) 100 MG tablet Indications: Benign essential hypertension Take 1 tablet (100 mg) by mouth in the morning and 1 tablet (100 mg) in the evening and 1 tablet (100 mg) before bedtime. 90 tablet 11 02/22/2024 ActiveStart: 95-90-9730jruhIEDYHBS 25 mg Tab Refills(s) 0 Start Date: 03/04/22 Status: Ordered 24 hr isosorbide mononitrate 30 mg extended release oral tablet (20 sources)Nitrate VasodilatorStart: 04-04-2025 End: 55-83-9133fazx 1 tablet by mouth once daily, then take 1 tablet by mouth every twenty-four hoursisosorbide mononitrate ER (Imdur) 30 MG 24 hr tablet Take 30 mg by mouth Daily 04/04/2025 04/04/2026 ActiveStart: 03-24-2021 End: 16-64-8867jgtq 1 tablet by mouth once daily, then take 1 tablet by mouth every twenty-four hoursIsosorbide Mononitrate 60 mg tablet extended release 24 hr Discontinued 60 MG PO Daily March 24, 2021 12:00am April 08, 2025 4:14pm melatonin 3 mg oral tablet (8 sources)Start: 03-20-2025 End: 68-28-8818dlth 2 tablets by mouth once daily at bedtimeMetoprolol (11 sources)beta-Adrenergic BlockerStart: 77-35-6799Qjayrdomvf tartrate 50 mg Tab Refills(s) 0 Start Date: 03/04/22 Status: OrderedStart: 03-24-2021 End: 49-44-7329qcta 1 tablet by mouth twice dailyMetoprolol Tartrate 50 mg tablet Discontinued 50 MG PO Twice daily March 24, 2021 12:00am April 08, 2025 4:14pmminoxidil 2.5 mg oral tablet (1 source)Arteriolar VasodilatorStart: 03-73-8243jaye 1 tablet by mouth twice daily24 hr mirabegron 50 mg extended release oral tablet (1 source)beta3-Adrenergic AgonistStart: 13-87-2934pidd 1 tablet by mouth once dailymirabegron 50 mg oral tablet, extended release 50 mg = 1 tab(s), Oral, Daily, # 30 tab(s), Refills(s) 11, Pharmacy: [facility]/pharmacy #[id number], 163, cm, 11/18/24 13:38:00 EST, Height/Length Dosing, 74.1, kg,11/18/24 13:38:00 EST, Weight Dosing Start Date: 11/18/24 Status: OrderedNIFEdipine 90 mg osmotic 24 hr extended release oral tablet (20 sources)Dihydropyridine Calcium Channel BlockerStart: 19-72-9861hwjl 1 tablet by mouth twice dailyStart: 61-43-1063mmxr 1 tablet by mouth every twenty- four [...] morning and 90 mg beforebedtime. 03/20/2025 ActiveStart: 57-43-7024SVKHmgfqsj (Eqv-Procardia XL) 90 mg oral tablet, extended release Refills(s) 0 Start Date: 03/04/22 Status: OrderedStart: 03-24-2021 End: 05-00-1903uqxl 1 tablet by mouth once dailyNifedipine 90 mg tablet extended release 24hr Discontinued 90 MG PO Daily March 24, 2021 12:00am April 08, 2025 4:19pmnitroglycerin 0.4 mg sublingual tablet (20 sources)Nitrate VasodilatorStart: 03-20-2024 End: 28-63-4909wvavabtvkyjym (Nitrostat) 0.4 MG SL tablet Indications: Atherosclerosis of [place] coronary artery of [place] heart with stable angina pectoris Place 1 tablet (0.4 mg) under the tongue every 5 (five) minutes if needed for chest pain 90 tablet 12 03/20/2024 ActiveStart: 03-04-2022 nitroglycerin 0.4 mg SubL [place] mg spray(s), SubLingual, q5min, Refills(s) 0 Start Date: 03/04/22 Status: Ehizhir48 hr oxybutynin chloride 10 mg extended release oral tablet (9 sources)Cholinergic Muscarinic AntagonistStart: 10-23-2023 End: 45-85-9182hvya 1 tablet by mouth once dailyoxybutynin 10 mg ER Tab 10 mg = 1 tab(s), Oral, Daily, # 90 tab(s), Refills(s) 3, Pharmacy: [facility]/pharmacy #[id number], 163, cm, 10/23/23 12:33:00 EST, Height/Length Dosing, 81.5, kg, 10/23/23 12:33:00 EST, Weight Dosing Start Date: 10/23/23 Status: Orderedpantoprazole 40 mg delayed release oral tablet (20 sources)Proton Pump InhibitorStart: 69-75-7532Nztwd: 03-24-2021 End: 02-88-4873pdke 1 tablet by mouth once dailypantoprazole (ProtoNix) 40 MG EC tablet Indications: Gastroesophageal reflux disease, unspecified whether esophagitis present Take 1 tablet (40 mg) by mouth Daily 90 tablet 3 03/25/2025 Activemicroencapsulated potassium chloride 10 meq extended release oral tablet (2 sources)Start: 06-09-2025 End: 30-00-3650eplv 1 tablet by mouth in the morningpotassium chloride CR (Klor- Con M10) 10 MEQ ER tablet Indications: Hypokalemia Take 1 tablet (10 mEq) by mouth in the morning and 1 tablet (10 mEq) before bedtime. Do all this for 7 days. Do not crush or chew. 14 tablet 06/09/2025 06/16/2025 Activesennosides, detention 8.6 mg oral tablet (8 sources)Start: 03-20-2025 End: 04-59-4196wfgn 1 tablet by mouth once daily at bedtimetraMADol hydrochloride 50 mg oral tablet (12 sources)Opioid AgonistStart: 03-24-2025 End: 90-86-2016wpmr 1 tablet by mouth every eight hours for paintraMADol (Ultram) 50 MG tablet Indications: Primary osteoarthritis of both knees Take 1 tablet (50 mg) by mouth every 8 (eight) hours if needed for severe pain 60 tablet 2 03/24/2025 Activezolpidem tartrate 10 mg oral tablet (20 sources)gamma-Aminobutyric Acid-ergic AgonistStart: 04-08-2025 End: 22-56-0676sovw 5 mg by mouth at bedtime as neededStart: 03-24-2025 End: 16-31-0725bbcdqrlw (Ambien) 5 MG tablet Indications: Insomnia due to medical condition Take 1 tablet (5 mg) by mouth as needed at bedtime for sleep 30 tablet 5 03/24/2025 09/20/2025 ActiveStart: 03-24-2025 End: 85-76-8960yxdsoegf (Ambien) 10 MG tablet Indications: Insomnia due to medical condition Take 0.5 tablets (5 mg) by mouth as needed at bedtime for sleep 30 tablet 5 03/24/2025 03/24/2025 Discontinued (Reorder)Start: 03-24-2021 End: 51-51-5395accu 1 tablet by mouth at bedtimeZolpidem 10 mg tablet Discontinued 10 MG PO Bedtime March 24, 2021 12:00am April 08, 2025 4:19pm Completed/Discontinued Medications MedicationDrug Class(es)DatesSig (Normalized)Sig (Original)diclofenac sodium 0.01 mg/mg topical gel (7 sources)Nonsteroidal Anti-inflammatory DrugStart: 11-23-2023 End: 12-31-3539Doqttnmoog Sodium 1 % gel Discontinued 2 GM TOPICAL as directed as needed for knee pain 10 17March 11, 2024 7:39am April 08, 2025 4:11pmStart: 07-50-5270Slyklsymcf Sodium Active 2 GM TOPICAL as directed 10 17November 23, 2023 1:00amDULoxetine 30 mg delayed release oral capsule (20 sources)Serotonin and Norepinephrine Reuptake InhibitorStart: 12-27-2024 End: 61-75-9567uons 1 capsule by mouth once dailyDULoxetine (Cymbalta) [address] capsule Indications: Depressive disorder Take 1 capsule (30 mg) by mouth Daily Take with 60 mg capsule 90 capsule 4 01/02/2025 03/24/2025 DiscontinuedStart: 12-27-2024 End: 34-81-9695lpou 1 capsule by mouth once dailyDULoxetine (Cymbalta) [address] capsule Indications: Anxiety Take 1 capsule (60 mg) by mouth Daily 90 capsule 01/02/2025 03/24/2025 DiscontinuedStart: 72-62-7343anap 1 capsule by mouth once dailyDULoxetine (Cymbalta) [address] capsule Indications: Depressive disorder (CMS/HCC) Take 1 capsule (30 mg) by mouth Daily Take with 60 mg capsule 100 capsule 3 12/30/2023 ActiveStart: 10-30-2023 End: 32-58-4769tfot 1 capsule by mouth once dailyDULoxetine (Cymbalta) [address] capsule Indications: Anxiety Take 1 capsule (60 mg) by mouth Daily 90 capsule 11/04/2024 ActiveStart: 95-10-4281QFGsnobgts 30 mg Cap-EC Refills(s) 0 Start Date: 03/04/22 Status: OrderedStart: 82-16-6211BYZgezmmwg 60 mg Cap-EC Refills(s) 0 Start Date: 03/04/22 Status: OrderedStart: 03-24-2021 End: 90-00-9955cqrr 3 capsules by mouth at bedtimeDuloxetine 30 mg capsule,delayed release(DR/EC) Discontinued 90 MG PO Bedtime March 24, 2021 12:00am April 08, 2025 4:12pmStart: 57-04-0415utxn 90 mg by mouth at bedtime Duloxetine Active 90 MG PO Bedtime March 24, 2021 10:33pm12 hr guaiFENesin 600 mg extended release oral tablet (5 sources)Start: 03-27-2021 End: 84-08-6680wohg 2 tablets by mouth twice daily as needed for congestion, then take 1 tablet by mouth every twelve hours as needed for congestion Guaifenesin (Mucinex) 600 mg Tablet Extended Release 12hr Discontinued 1200 MG PO Twice daily as needed for congestion 0 March 27, 2021 12:00am November 23, 2023 3:26pmmeloxicam 15 mg oral tablet (20 sources)Nonsteroidal Anti-inflammatory DrugStart: 06-10-2024 End: 92-12-8817nhrb 1 tablet by mouth once dailyMeloxicam 15 mg tablet Discontinued 0 .ROUTE .COMPLEX June 10, 2024 7:33am April 08, 2025 4:14pm TAKE 1 TABLET BY MOUTH EVERY DAYStart: 11-23-2023 End: 68-70-5488cgxa 1 tablet by mouth once dailyMeloxicam 15 mg tablet Discontinued 15 MG PO daily March 11, 2024 7:39am June 10, 2024 7:34amondansetron 4 mg oral film (2 sources)Serotonin-3 Receptor AntagonistStart: 03-24-2021 End: 58-59-5161fqrx 4 mg by mouth every eight hoursOndansetron Discontinued 4 MG PO Q8H March 24, 2021 10:38pm March 27, 2021 11:37amStart: 03-24-2021 End: 73-11-6187uuts 4 mg by mouth every eight hoursOndansetron Discontinued 4 MG PO Q8H March 24, 2021 12:00am March 27, 2021 11:37amOndansetron 4 mg Film (3 sources)Start: 03-24-2021 End: 81-64-1961xwep 4 mg by mouth every eight hours as needed for nausea Ondansetron 4 mg Film Discontinued 4 MG PO Q8H as needed for Nausea March 24, 2021 12:00am March 27, 2021 11:37ampregabalin 75 mg oral capsule (20 sources)Start: 03-24-2021 End: 53-51-1518usxf 1 capsule by mouth twice dailyPregabalin 75 mg capsule Discontinued 75 MG PO Twice daily March 24, 2021 12:00am April 08, 2025 4:15pm tiZANidine 4 mg oral tablet (20 sources)Central alpha-2 Adrenergic AgonistStart: 03-04-2022 End: 53-59-3373tycm 1 tablet by mouth twice daily as neededtiZANidine (Zanaflex) 4 MG tablet Indications: Radiculopathy of lumbar region TAKE 1 TABLET BY MOUTH TWICE A DAY NEEDED 180 tablet 3 05/13/2024 03/24/2025 Discontinuedvalsartan 320 mg oral tablet (20 sources)Angiotensin 2 Receptor BlockerStart: 03-24-2021 End: 14-20-4620xqil 1 tablet by mouth once dailyValsartan 320 mg tablet Discontinued 320 MG PO Daily March 24, 2021 12:00am April 08, 2025 4:15pm Problems Active Problems Problem ClassificationProblemDateDocumented DateEpisodic/ChronicAcute and unspecified renal failure (15 sources)Injury of kidney; Translations: [Acute kidney failure, unspecified] Onset: 986125-25-3461RuoyctpnIgvsa myocardial infarction (6 sources)Myocardial mzvtqyvrgh95-54-6754QccjvfwEvglgidvymdpmu/social admission (6 sources)Patient encounter status; Translations: [Other specified counseling] 02-40-3075XwnuzukpWyybbnp disorders (3 sources)Anxiety; Translations: [Anxiety disorder, unspecified]11-03-2024 ChronicAortic; peripheral; and visceral artery aneurysms (20 sources)Dissection of abdominal aorta; Translations: [Dissection of abdominal aorta]Onset: 569822-71-1480UyvibyfHcfilwy dysrhythmias (20 sources)Tucker rhythm disorder; Translations: [Other specified cardiac arrhythmias]Onset: 632683-68-4805PztsdtrUwoeyvx kidney disease (20 sources)Chronic kidney disease stage 3B ; Translations: [Stage 3b chronic kidney disease (HCC)]Onset: 276923-67-6885TksmjtnOvlurvk kidney disease (2 sources)Chronic kidney disease; Translations: [Chronic kidney disease, stage 3b]Onset: 15-69-6784Toknntzcfhdh of device; implant or graft (20 sources)Atherosclerosis of coronary artery bypass graft(s) without angina pectoris; Translations: [Arteriosclerosis of autologous vein coronary artery bypass graft]Onset: 276699-24-8192LhscrtrOjcasyfxkw heart failure; nonhypertensive (4 sources)Chronic diastolic heart failure; Translations: [Chronic diastolic (congestive) heart failure]90-70-5536JyfpktfQzgpyfsw atherosclerosis and other heart disease (20 sources)Atherosclerotic heart disease of [place] coronary artery without angina pectoris; Translations: [Coronary atherosclerosis]Onset: 02-03-2022 ChronicDeficiency and other anemia (20 sources)Anemia due to chronic blood loss; 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 Deficiency and other anemia (10 sources)Anemia; Translations: [Anemia, unspecified]49-00-8117Peyllwxe Deficiency and other anemia (1 source)Anemia, unspecified; Translations: [Anemia, unspecified]Onset: 94-16-3328ZifmnyfzRrgjbfns mellitus without complication (2 sources)Type 2 diabetes cokkqxfm00-19-9200EwtrjurVhiptnbzf of lipid metabolism (20 sources)Hyperlipidemia; Translations: [Mixed hyperlipidemia]Onset: 050677-23-5782SybnesrKoumjrryby disorders (20 sources)Gastroesophageal reflux disease; Translations: [Gastro-esophageal reflux disease without esophagitis]Onset: 788081-69-9325BizdqlqDefyrcedw hypertension (20 sources)Hypertensive disorder; Translations: [Essential (primary) hypertension]Onset: 109989-77-9933WsfvgquVyuah and electrolyte disorders (7 sources)Hypervolemia; Translations: [Fluid overload, unspecified]Onset: 326592-95-3517OpvhuerePhucqwkorhkomsky hemorrhage (12 sources)Lower gastrointestinal hemorrhage; Translations: [Gastrointestinal hemorrhage, unspecified]Onset: 297654-92-1219GpvpikreCchlmdzvsscru symptoms and ill-defined conditions (7 sources)Urge incontinence; Translations: [Urge incontinence of urine]Onset: 02-67-3812JyawwvgKjadw valve disorders (3 sources)Nonrheumatic aortic (valve) insufficiency; Translations: [NONRHEUMATIC AORTIC INSUFFICIENCY]Onset: 55-98-3343TaefyipTipmbfropsaj with complications and secondary hypertension (13 sources)Hypertensive renal disease; Translations: [Hypertensive chronic kidney disease with stage 1 throughstage 4 chronic kidney disease, or unspecified chronic kidney disease]Onset: 461352-59-1625GthapojXwrjmif and fatigue (9 sources)Asthenia; Translations: [Weakness]Onset: 601279-84-8032Wbnolljj Menopausal disorders (20 sources)Other primary ovarian failure; Translations: [Decreased estrogen level]Onset: 58-01-3663BcdqgsiZbwg disorders (20 sources)Depressive disorder; Translations: [Depressive disorder]Onset: 796468-18-8431EsekegdNilqreisytux breast conditions (20 sources)Fibrocystic disease of breast; Translations: [Diffuse cystic mastopathy of unspecified breast]Onset: 698514-31-9405WhefmksGnjbbfzpi or stenosis of precerebral arteries (20 sources)Occlusion and stenosis of bilateral carotid arteries; Translations: [Carotid artery occlusion]Onset: 553755-98-4597DbqwaxkGxsqdeynzmyrhi (20 sources)Primary gonarthrosis, bilateral; Translations: [Bilateral primary osteoarthritis of knee]Onset: 672254-07-5880LtwpkybCwlykpwbxerf (20 sources)Osteoporosis; Translations: [Age-related osteoporosis without current pathological fracture]Onset: 919931-41-7145BymjerpNntbj acquired deformities (2 sources)Spondylolisthesis, lumbar region; Translations: [Spondylolisthesis, lumbar region]Onset: 44-93-9434ZathylivOpsmb acquired deformities (1 source)Spondylolisthesis, lumbosacral region; Translations: [Spondylolisthesis, lumbosacral region]Onset: 66-82-3739XwynnrivBkfdn aftercare (4 sources)Long-term current use of anticoagulant; Translations: [correction (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]Onset: 48-76-9414PopmrnrnVnybl and ill-defined heart disease (6 sources)Heart tipwbqf76-63-9948NkrlayhFtufv circulatory disease (20 sources)Stricture of artery; Translations: [Stricture of artery]Onset: 716010-54-5743BjrdtpfTgccu diseases of kidney and ureters (6 sources)Disorder of kidney and/or ureter; Translations: [Disorder of kidney and ureter, unspecified]Onset: 74-39-3798UxozcobcGqswb diseases of veins and lymphatics (12 sources)Lymphedema; Translations: [Lymphedema, not elsewhere classified] Onset: 622209-95-2274HktsdzjRveqp diseases of veins and lymphatics (1 source)Lymphedema, not elsewhere classified; Translations: [Other lymphedema] 75-28-9518EbrdbvrQshgm gastrointestinal disorders (20 sources)Irritable bowel syndrome; Translations: [Irritable bowel syndrome without diarrhea]Onset: 686057-07-2954AidsudfRfako gastrointestinal disorders (2 sources)Constipation, unspecified; Translations: [Constipation, unspecified] Onset: 87-08-5374VldluhyeKnjuf gastrointestinal disorders (2 sources)Functional diarrhea; Translations: [Functional diarrhea]06-09-2025 EpisodicOther lower respiratory disease (4 sources)Fibrosis of lung; Translations: [Pulmonary fibrosis, unspecified] 63-81-7974UbaudapDnovp non-traumatic joint disorders (4 sources)Pain in left knee; Translations: [Left knee pain]69-61-2992Dujpqfra Other nutritional; endocrine; and metabolic disorders (20 sources)Obese class I; Translations: [Obesity (BMI 30.0-34.9)]Onset: 280024-22-7482SqadsjzXrmib nutritional; endocrine; and metabolic disorders (2 sources)Weight decreased; Translations: [Abnormal weight loss]02-25-2025 EpisodicOther skin disorders (2 sources)Loss of hair; Translations: [Nonscarring hair loss, unspecified] 53-89-6415YfoqyhpeTmcepicfyn and visceral atherosclerosis (20 sources)Peripheral vascular disease, unspecified; Translations: [Peripheral vascular disease, unspecified]Onset: 520058-49-0478FownypyWoxtixui codes; unclassified (20 sources)Insomnia co-occurrent and due to medical condition; Translations: [Insomnia due to medical condition]Onset: 684565-46-5483EzxnyxcXiyvtzjp codes; unclassified (3 sources)Localized edema; Translations: [LOCALIZED EDEMA]Onset: 02-03-2022 EpisodicResidual codes; unclassified (4 sources)Poor oral hygiene; Translations: [Other specified personal risk factors, not elsewhere classified]38-33-3217IxbcwqonEzdolusp codes; unclassified (1 source)Tobacco use; Translations: [Tobacco use disorder]97-45-0774Pwmzszgt Residual codes; unclassified (1 source)Other specified personal risk factors, not elsewhere classified; Translations: [Other specified disorders of the teeth and supporting structures] 86-72-9740HtgpxyenRkgghwdc codes; unclassified (3 sources)Insomnia, unspecified; Translations: [Insomnia, unspecified]Onset: 66-09-0853JpnsgqjkKjmjgtvvmzp; intervertebral disc disorders; other back problems (20 sources)Lumbar spondylosis; Translations: [Spondylosis without myelopathy or radiculopathy, lumbar region]Onset: 406926-05-5016XumqrudHmtooagbypl; intervertebral disc disorders; other back problems (2 sources)Spondylosis; intervertebral disc disorders; other back problems; Translations: [L5-S1 RADICULOPATHY, SPONDYLOSIS]Onset: 48-13-9839Oyfarlyvy- related disorders (20 sources)Tobacco dependence syndrome; Translations: [Nicotine dependence, unspecified, uncomplicated]Onset: 389245-84-3588UpvdappRieyqfk disorders (20 sources)Thyroid nodule; Translations: [Nontoxic single thyroid nodule]Onset: 843746-45-8650MjezwfbMffffvxnqdro (5 sources)Drug therapy rcmbihq61-69-6759Eptyhdgfuvvz (15 sources)Patient on antidepressant monitoring planOnset: 551665-72-3074 Unclassified (2 sources)Follow-up with GI if needed. The office will follow-up pathology for H. pylori.Unclassified (1 source)Follow-up with Nephrology as previously scheduled. Recommend closer follow-up, please call office on Monday to see if can get a closer appointment. Past or Other Problems Problem ClassificationProblemDateDocumented DateEpisodic/ChronicAbdominal pain (20 sources)Generalized abdominal pain; Translations: [Generalized abdominal pain]Onset: 05-05-2023 Resolved: 749740-60-1624QpzbdhxiXafouzzo foot deformities (20 sources)Left foot drop; Translations: [Foot drop, left foot]Onset: 145836-70-2997NqwgqnjhKoztdyqg reactions (20 sources)Allergy to seafood; Translations: [Allergy to seafood]Onset: 768466-08-0773ZfvwlovtXtru; stupor; and brain damage (20 sources)Daytime somnolence; Translations: [Somnolence]Onset: 05-05-2023 46-03-9142LqdsveoqQqrbftzr atherosclerosis and other heart disease (20 sources)Patient post percutaneous transluminal coronary angioplasty; Translations: [Coronary angioplasty status]Onset: 951221-61-9257Pmbzpjdn Diabetes mellitus with complications (20 sources)Renal disorder due to type 2 diabetes mellitus; Translations: [Type 2 diabetes mellitus with other diabetic kidney complication]Onset: 10-24-2019 Resolved: 735032-64-3784GqvlkvwDnqjzzzvaslge symptoms and ill-defined conditions (20 sources)Proteinuria; Translations: [Proteinuria, unspecified]Onset: 585083-62-8625PeunfcufVzqp disorders (15 sources)Mood disordersOnset: Nausea and vomiting (20 sources)Nausea and vomiting; Translations: [Nausea with vomiting, unspecified]Onset: 386503-43-4988EdnzkjrzVyflwvctusl chest pain (20 sources)Chest pain; Translations: [Chest pain, unspecified]Onset: 05-23-2018 06-41-5827UsrfcaesTbbus acquired deformities (20 sources)Lumbar spondylolisthesis; Translations: [Spondylolisthesis, lumbar region]Onset: 775227-22-4624SuyjfmoxQrwbh aftercare (1 source)correction (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; Translations: [BANKING REPRESENTATIVE CURRNT USE ANTICOAGULANTS]Onset: 87-47-3833IyvvdppzJtbak aftercare (20 sources)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; 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]Onset: 994226-10-9934ZhvercyjXhiqd connective tissue disease (3 sources)Pain in leg, unspecified; Translations: [PAIN IN LEG UNSPECIFIED] Onset: 50-84-3195AhxbldfbCmwgp connective tissue disease (1 source)Pain in left leg; Translations: [PAIN IN LEFT LEG]Onset: 02-25-2022 EpisodicOther connective tissue disease (1 source)Pain in right leg; Translations: [PAIN IN RIGHT LEG]Onset: 02-25-2022 EpisodicOther connective tissue disease (20 sources)Fibromyalgia; Translations: [Fibromyalgia]Onset: 05-05-2023 60-52-8393XgbchvwgIwled connective tissue disease (20 sources)Muscle pain; Translations: [Myalgia, unspecified site]Onset: 853365-61-9363DcplyzzfJvnhm connective tissue disease (20 sources)Fibromyositis; Translations: [Fibromyalgia]Onset: 05-23-2018 28-52-6870FpswyngsFgppx connective tissue disease (20 sources)Neurogenic claudication; Translations: [Other symptoms and signs involving the nervous system]Onset: 876700-04-4230UdkivgpdKuuxe connective tissue disease (1 source)Fibromyalgia; Translations: [Fibromyalgia]Onset: 20-22-1153Kecjvmmj Other diseases of kidney and ureters (20 sources)Kidney lesion; Translations: [Disorder of kidney and ureter, unspecified]Onset: 030832-81-5279AhvrwmpeJtuyv diseases of kidney and ureters (4 sources)Disorder of kidney and ureter, unspecified; Translations: [DISORDER KIDNEY AND URETER UNS]Onset: 89-74-4991RspzggdmMkgie diseases of veins and lymphatics (20 sources)Peripheral venous insufficiency; Translations: [Venous insufficiency (chronic) (peripheral)]Onset: 252624-77-1549FccffgmkNqadu lower respiratory disease (5 sources)Shortness of breath; Translations: [SHORTNESS OF BREATH]Onset: 45-59-0857OnkgttngNuubi screening for suspected conditions (not mental disorders or infectious disease) (20 sources)Cardiovascular stress test abnormal; Translations: [Abnormal result of other cardiovascular function study]Onset: 338716-23-0843MadzmciyIjype upper respiratory infections (20 sources)Sinusitis; Translations: [Chronic sinusitis, unspecified]Onset: 04-30-2020 Resolved: 022630-95-0597ZvxqndvQaigmeavy; thrombophlebitis and thromboembolism (20 sources)History of thromboembolism of vein; Translations: [Personal history of other venous thrombosis and embolism]Onset: 501990-56-5396Yuwlbjrw Pulmonary heart disease (20 sources)Personal history of pulmonary embolism; Translations: [Infarction of lung due to embolus]Onset: 735404-12-6813LgrcbevaUznytpyc codes; unclassified (20 sources)Nicotine user; Translations: [Tobacco use]Onset: 02-27-2019 74-86-9428QbywikesGpeaoxvs codes; unclassified (20 sources)Other specified health status; Translations: [Other drug allergy] Onset: 243758-40-8754MqhbdvfhPnonzyzj codes; unclassified (20 sources)Localized edema; Translations: [Localized edema]Onset: 10-04-2023 11-66-4282DicpxulfGyvlhvdslmb; intervertebral disc disorders; other back problems (20 sources)Spinal stenosis of lumbar region; Translations: [Spinal stenosis, lumbar region with neurogenic claudication]Onset: 126661-91-1066Ezapyvom Results Test NameValueInterpretationReference RangeFacilityHMHP CBC WITH PLATELET NO DIFFERENTIALon 41-49-9985Bkdvcuiuwth distribution width (RBC) [Ratio]17.8 %High 11.0 - 15.0 %[facility]OMS HealthcareHematocrit (Bld) [Volume fraction]26.8 %Low36.0 - 48.0 %[facility] HealthcareHemoglobin (Bld) [Mass/Vol]9.1 g/dLLow12.0 - 16.0 g/dLPhelps HealthInterpretation and review of laboratory resultsAbnormalNOMercy Hospital Washington MCH (RBC) [Entitic mass]29.0 pg26.7 - 34.0 pgPhelps HealthMCHC (RBC) [Mass/Vol]34.0 g/dL29.9 - 35.2 g/dLPhelps HealthMCV (RBC) [Entitic vol]85.4 fL 81.0 - 99.0 fLPhelps HealthPlatelet mean volume (Bld) [Entitic vol]10.7 fL9.5 - 13.5 fLPhelps HealthTBH ILL596NGBVMercy Hospital WashingtonTB RBC3.14LowPhelps Health TBH WBC4.3Phelps HealthCLINISYNCNOMS HealthcareCOMPREHENSIVE METABOLIC PANELon 62-22-5850Lytioxo [Mass/Vol]3.7 g/dLNormal3.6-5.1Quest DiagnosticsComment on above:Performed By: #### [id number] #### [facility] [place] [address] Primer Inspector: Figueroa Jacques MDAlbumin/Globulin [Mass ratio]1.6 {ratio}Normal 1.0-2.5Quest DiagnosticsComment on above:Performed By: #### [id number] #### [facility] [place] [address] Primer Inspector: Figueroa Jacques MDALP [Catalytic activity/Vol]24 U/LXym73-961 Quest DiagnosticsComment on above:Performed By: #### [id number] #### [facility] [place] [address] Primer Inspector: Figueroa Jacques MDALT [Catalytic activity/Vol]8 U/LNormal6-29 Quest DiagnosticsComment on above:Performed By: #### [id number] #### [facility] [place] [place] [address] [place] [address] Primer Inspector: Figueroa Jacques MDAST [Catalytic activity/Vol]32 U/XDmxiam45-95 Quest DiagnosticsComment on above:Performed By: #### [id number] #### [facility] [place] [address] Primer Inspector: Figueroa Jacques MDBilirubin [Mass/Vol]0.7 mg/dLNormal0.2-1.2 Quest DiagnosticsComment on above:Performed By: #### 49740 #### [facility] [place] [address] Primer Inspector: Figueroa Jacques MDCalcium [Mass/Vol]6.6 mg/dLLow8.6-10.4Quest DiagnosticsComment on above:Performed By: #### 33676 #### [facility] [place] [address] Primer Inspector: Figueroa Jacques MDChloride [Moles/Vol]103 mmol/SCrqhzb71-841 Quest DiagnosticsComment on above:Performed By: #### 68043 #### [facility] [place] [address] Primer Inspector: Figueroa Jacques MDCO2 [Moles/Vol]24 mmol/GQorfns92-68Tcdvf DiagnosticsComment on above:Performed By: #### 52044 #### [facility] [place] [address] Primer Inspector: Figueroa Jacques MDCreatinine [Mass/Vol]3.66 mg/dLHigh0.60-1.00 Quest DiagnosticsComment on above:Performed By: #### 45365 #### [facility] [place] [address] Primer Inspector: Figueroa Jacques MDGFR/1.73 sq M.predicted among non-blacks MDRD (S/P/Bld) [Vol rate/Area]12 mL/min/{1.73_m2}Low> OR = 60Quest DiagnosticsComment on above:Performed By: #### [id number] #### [facility] [place] [address] Primer Inspector: Figueroa Jacques MDGlobulin (S) [Mass/Vol]2.3 g/dLNormal1.9-3.7 Quest DiagnosticsComment on above:Performed By: #### [id number] #### [facility] [place] [address] Primer Inspector: Figueroa Jacques MDGlucose [Mass/Vol]124 mg/kHZnnn57-08Lrnol DiagnosticsComment on above:Result Comment: Fasting reference interval For someone without known diabetes, a glucose value between 100 and 125 mg/dL is consistent with prediabetes and should be confirmed with a follow-up test.Performed By: #### 10035 #### [facility] [place] [address] Primer Inspector: Figueroa Jacques MDPotassium [Moles/Vol]3.3 mmol/LLow3.5-5.3Quest DiagnosticsComment on above:Performed By: #### [id number] #### [facility] [place] [address] Primer Inspector: Figueroa Jacques MDProtein [Mass/Vol]6.0 g/dLLow6.1-8.1Quest DiagnosticsComment on above:Performed By: #### [id number] #### [facility] [place] [address] Primer Inspector: Figueroa Jacques MDSodium [Moles/Vol]140 mmol/ZPkhcom707-922Btyma DiagnosticsComment on above:Performed By: #### [id number] #### [facility] [place] [address] Primer Inspector: Figueroa Jacques MDUrea nitrogen [Mass/Vol]72 mg/dLHigh7-25Quest DiagnosticsComment on above:Performed By: #### [id number] #### [facility] [address], [address] [place] [address] Primer Inspector: Figueroa Jacques MDUrea nitrogen/Creatinine [Mass ratio]20 mg/mg Normal6-Quest DiagnosticsComment on above:Performed By: #### [id number] #### [facility] [address], [address] [place] [address] Primer Inspector: Figueroa Jacques MDLaboratory - Chemistry and Chemistry - [facility] 53-11-0456Zxvqyak [Mass/Vol]3.7 g/dL3.6 - 5.1 g/dLNOPA Healthcare Albumin/Globulin [Mass ratio]1.6 {ratio}NOMS HealthcareALP [Catalytic activity/Vol]24 U/LLow37 - 153 U/LNOMS HealthcareALT [Catalytic activity/Vol]8 U/L6 - 29 U/LNOMS HealthcareAST [Catalytic activity/Vol]32 U/L10 - 35 U/LNOMS HealthcareBilirubin [Mass/Vol]0.7 mg/dL0.2 - 1.2 mg/dLNOMS HealthcareCalcium [Mass/Vol]6.6 mg/dLLow8.6 - 10.4 mg/dLNOMS HealthcareChloride [Moles/Vol]103 mmol/L98 - 110 mmol/LNOMS HealthcareCO2 [Moles/Vol]24 mmol/L20 - 32 mmol/LNOMS HealthcareCreatinine [Mass/Vol]3.66 mg/dLHigh0.60 - 1.00 mg/dLNOPA Healthcare GFR/1.73 sq M.predicted among non-blacks MDRD (S/P/Bld) [Vol rate/Area]12 mL/min/{1.73_m2}Low> OR = 60 mL/min/1.73r1ZEUL HealthcareGlobulin (S) [Mass/Vol] 2.3 g/dLNOMS HealthcareGlucose [Mass/Vol]124 mg/vRDigk12 - 99 mg/dLNOPA HealthcareComment on above: Fasting reference interval For [...] nitrogen/Creatinine [Mass ratio]20 mg/mgNOMS HealthcareNo Panel Informationon 82-61-4829Zhzmgazlvifroi and review of laboratory results AbnormalNOPA HealthcarePerforming Organization Information Site ID: QPT Name: [facility] Address: [address] , [address] [place] [phone] Director: Figueroa Jacques MDPhelps HealthNOPA HealthcareALL PRO BNPon 06-09-2025 NT PRO B TYPE NATRIURETIC [id number] pg/mLCritically highNINF - 1800.0 pg/mLNOMS HealthcareComment on above:RESULTS CALLED TO PEPE FISHER CMP (CMP) (FOR REMOTE [facility] USE)on 12-95-2652Fpzgqfi [Mass/Vol]3.4 g/dL3.4 - 5.0 g/dLNOPA HealthcareALBUMIN GLOBULIN RATIO0.9NOPA HealthcareALP [Catalytic activity/Vol]30 U/LLow46 - 116 U/LNOMS HealthcareALT [Catalytic activity/Vol]10 U/LLow14 - 59 U/LNOMS HealthcareAnion gap [Moles/Vol]14.5 mmol/LNOMS HealthcareAST [Catalytic activity/Vol]35 U/L15 - 37 U/LNOMS HealthcareBilirubin [Mass/Vol]0.8 mg/dL0.2 - 1.0 mg/dLNOPA HealthcareCalcium [Mass/Vol]6.8 mg/dLLow8.5 - 10.1 mg/dLNOPA HealthcareChloride [Moles/Vol]102 mmol/L98 - 107 mmol/LNOMS HealthcareCO2 [Moles/Vol]29.5 mmol/L21.0 - 32.0 mmol/LNOMS HealthcareCreatinine [Mass/Vol]3.8 mg/dLHigh0.55 - 1.02 mg/dLNOPA HealthcareGFR/1.73 sq M.predicted CKD-EPI (S/P/Bld) [Vol rate/Area]14Low>=60 mL/min/1.73m 2NOMS HealthcareGlobulin (S) [Mass/Vol]3.8 g/dLNOPA HealthcareGlucose [Mass/Vol]99 mg/dL74 - 106 mg/dLNOPA HealthcarePotassium [Moles/Vol]3 mmol/LLow3.5 - 5.1 mmol/LNOMS HealthcareProtein [Mass/Vol]7.2 g/dL6.4 - 8.2 g/dLNOPA HealthcareSodium [Moles/Vol]143 mmol/L136 - 145 mmol/LNOMS HealthcareTBH EGFR-NON AF GXQHKLEO23Uuo>=60 mL/min/1.73m 2NOMS HealthcareUrea nitrogen [Mass/Vol]64 mg/dLHigh7.0 - 18.0 mg/dLNOMercy Hospital Washington Urea nitrogen/Creatinine [Mass ratio]16.8 mg/mg[facility] HealthcareNo Panel Informationon 73-08-9309Khfijlgudeggog and review of laboratory resultsAbnormal NOMS HealthcareCLINISYNCNLINDSAY MUNICIPAL H[facility]ITAL [facility] HealthcareTSH W/REFLEX T4on 69-45-0333ZGG Qn4.13 m[IU]/LHighPhelps HealthBasic Metabolic Panelon 72-41-7964Iwzhv gap [Moles/Vol]10.5 mmol/LNormal6.0-15.0The [facility] Physician GroupComment on above:Performed By: #### BMP, CBC ####[place] [address] USACalcium [Mass/Vol]8.5 mg/dLLow8.6-10.3The [facility] Physician GroupComment on above:Performed By: #### BMP, CBC ####[place] [id number] USAChloride [Moles/Vol] 103 mmol/UFgufqd15-913Wgk [facility] Physician GroupComment on above:Performed By: #### BMP, CBC ####[place] [id number] USACO2 [Moles/Vol]27.0 mmol/OMvxkqf61.0-31.0The [facility] Physician GroupComment on above:Performed By: #### BMP, CBC ####[place] [id number] USACreatinine [Mass/Vol]4.15 mg/dLHigh 0.60-1.20The [facility] Physician GroupComment on above:Performed By: #### BMP, CBC ####[place] [address] [place] Creatinine Clr Calc Lipuhntx80.14NormalThValor Health Physician GroupComment on above:Result Comment: PERFORMED BY: [facility] [address] [place] [id number] PATHOLOGIST VERTICAL CONTOUR BAND SAW OPERATOR ELIZABETH MOREL M.D.Performed By: #### BMP, CBC ####[place] [address] USAGFR/1.73 sq M.predicted MDRD (S/P/Bld) [Vol rate/Area]10.650 mL/min/{1.73_m2}NormalThe [facility] Comment on above:Performed By: #### BMP, CBC ####[place] [address] USAGlucose [Mass/Vol]136 mg/lQHkux08-286 The [facility] Physician GroupComment on above:Result Comment: Random Glucose Reference Range is dependent on time and content of last meal. Glucose of more than 200 mg/dL in a nonstressed, ambulatory subject supports the diagnosis of Diabetes Mellitus. ADA recommended reference rangePerformed By: #### BMP, CBC ####[place] [address] USAPotassium [Moles/Vol] 3.5 mmol/LNormal3.5-5.1The [facility] Physician GroupComment on above:Performed By: #### BMP, CBC ####[place] [address] USASodium [Moles/Vol]137 mmol/OQiimiv825-195Dvz [facility] Physician GroupComment on above:Performed By: #### BMP, CBC ####[place] [address] USAUrea nitrogen [Mass/Vol]61 mg/dLHigh 7-25The [facility] Physician GroupComment on above:Performed By: #### BMP, CBC ####[place] [id number] [facility] Complete Blood Count Auto Diffon 91-64-5285Lhyabjaqz (Bld) [#/Vol]0.0 10*3/uL Normal0.0-0.2The [facility] Physician GroupComment on above:Result Comment: PERFORMED BY: [facility] [address] [place] [id number] PATHOLOGIST VERTICAL CONTOUR BAND SAW OPERATOR ELIZABETH MOREL M.D.Performed By: #### BMP, CBC ####[place] [address] USABasophils/100 WBC (Bld)0.7 %Normal.The [facility] Physician GroupComment on above:Performed By: #### BMP, CBC ####[address] Eosinophils (Bld) [#/Vol]0.2 10*3/uLNormal0.0-0.45The [facility] Comment on above:Performed By: #### BMP, CBC ####[place] [address] USAEosinophils/100 WBC (Bld)3.3 %Normal. The [facility] Physician GroupComment on above:Performed By: #### BMP, CBC ####[address] Erythrocyte distribution width (RBC) [Ratio]16.4 %High11.9-15.3The [facility] Physician GroupComment on above:Performed By: #### BMP, CBC ####[place] [address] USAHematocrit (Bld) [Volume fraction]27.2 %Low34.0-46.4The [facility] Physician GroupComment on above:Performed By: #### BMP, CBC ####[place] [address] USAHemoglobin (Bld) [Mass/Vol]9.0 g/dLLow11.8-15.4The [facility] Physician GroupComment on above:Performed By: #### BMP, CBC ####[place] [address] [place] Lymphocytes (Bld) [#/Vol]0.8 10*3/uLLow1.00-4.8The [facility] Comment on above:Performed By: #### BMP, CBC ####[place] [address] USALymphocytes/100 WBC (Bld)14.9 %Normal. The [facility] Physician GroupComment on above:Performed By: #### BMP, CBC ####[address] (RBC) [Entitic mass]29.1 psIcmwez74.7-34.3The [facility] Physician GroupComment on above:Performed By: #### BMP, CBC ####[address] (RBC) [Entitic vol]88.3 bJWwqblr26-939Gjy [facility] Physician GroupComment on above:Performed By: #### BMP, CBC ####[place] [address] USAMean Corpuscular HGB Conc33.0 g/jAEqndkd04.0-35.0The [facility] Physician GroupComment on above:Performed By: #### BMP, CBC ####[place] [address] USAMonocytes (Bld) [#/Vol]0.5 10*3/uLNormal 0.0-0.8The [facility] Physician GroupComment on above:Performed By: #### BMP, CBC ####[place] [address] [place] Monocytes/100 WBC (Bld)9.1 %Normal.The [facility] Physician GroupComment on above:Performed By: #### BMP, CBC ####[place] [address] USANeutrophils (Bld) [#/Vol]4.0 10*3/uLNormal1.8-7.7The [facility] Physician GroupComment on above:Performed By: #### BMP, CBC ####[place] [address] [place] Neutrophils/100 WBC (Bld)72.0 %Normal.The [facility] Physician GroupComment on above:Performed By: #### BMP, CBC ####[place] [address] USANRBC%0.1 /100{WBC}Normal0-0.5The [facility] Physician GroupComment on above:Performed By: #### BMP, CBC ####[place] [address] USAPlatelet mean volume (Bld) [Entitic vol]9.3 fLNormal6.3-10.7The [facility] Physician GroupComment on above: Performed By: #### BMP, CBC ####[place] [address] USAPlatelets (Bld) [#/Vol]176 10*3/yXOuuthe865-594Rkc [facility] Physician GroupComment on above:Performed By: #### BMP, CBC ####[place] [address] USARBC (Bld) [#/Vol]3.09 10*6/uLLow3.60-5.00The [facility] Physician GroupComment on above:Performed By: #### BMP, CBC ####[place] [address] USAWBC (Bld) [#/Vol]5.6 10*3/uLNormal3.8-11.6The [facility] Physician GroupComment on above:Performed By: #### BMP, CBC ####[place] [address] USAWhite Blood Count5.6 [CFU]/mLNormal3.8-11.6The [facility] Physician GroupComment on above:Performed By: #### BMP, CBC ####[place] [address] USABasic Metabolic Panelon 00-07-7867Drkwl gap [Moles/Vol]12.2 mmol/LNormal6.0-15.0The [facility] Physician GroupComment on above:Performed By: #### BMP #### [place] [address] USACalcium [Mass/Vol]8.4 mg/dLLow8.6-10.3The [facility] Physician GroupComment on above:Performed By: #### BMP #### [facility] [address] [place] [address] USAChloride [Moles/Vol]106 mmol/UAophey97-416Ghf [facility] Physician GroupComment on above:Performed By: #### BMP #### [place] [address] USACO2 [Moles/Vol]25.2 mmol/RHulquh12.0-31.0The Kindred [facility] Physician GroupComment on above:Performed By: #### BMP #### [place] [address] USACreatinine [Mass/Vol]3.69 mg/dLHigh0.60-1.20The [facility] Physician GroupComment on above:Performed By: #### BMP #### [place] [address] USACreatinine Clr Calc Vhfgfpzd70.26NormalThe [facility] Physician GroupComment on above:Result Comment: PERFORMED BY: [place] [address] PATHOLOGIST VERTICAL CONTOUR BAND SAW OPERATOR ELIZABETH MOREL M.D.Performed By: #### BMP #### [place] [address] USAGFR/1.73 sq M.predicted MDRD (S/P/Bld) [Vol rate/Area] 12.263 mL/min/{1.73_m2}NormalThe [facility] Physician GroupComment on above: Performed By: #### BMP #### [place] [address] USAGlucose [Mass/Vol]79 mg/xQJopjsl46-295Dmd [facility] GroupComment on above:Result Comment: Random Glucose Reference Range is dependent on time and content of last meal. Glucose of more than 200 mg/dL in a nonstressed, ambulatory subject supports the diagnosis of Diabetes Mellitus. ADA recommended reference rangePerformed By: #### BMP #### [place] [address] USAPotassium [Moles/Vol]3.4 mmol/LLow3.5-5.1The [facility] Physician GroupComment on above:Performed By: #### BMP #### [facility] [address] [place] [address] USASodium [Moles/Vol]140 mmol/OAdtszu452-760Ykc [facility]ician [facility] HospitalComment on above:Performed By: #### BMP #### [place] [address] USAUrea nitrogen [Mass/Vol]62 mg/dLHigh7-25The [facility] GroupComment on above:Performed By: #### BMP #### [facility] [address] [place] [address] USACreatinine, Urine (Random)on 07-41-3734Dohegqtgoh, Urine (Random)61.00 mg/dLNoECU Health [facility] Physician [facility] County HospitalComment on above:Result Comment: No reference range establishedPerformed By: #### UCREA, URTP ####[place] [id number] [facility] Pathology Request for Lab Corpon [id number] Request for Lab CorpNormal The [facility] Physician GroupComment on above:Order Comment: GI SPECIMENResult Comment: See report. Scanned copy available in EMR. PERFORMED BY: [place] [address] PATHOLOGIST VERTICAL CONTOUR BAND SAW OPERATOR ELIZABETH MOREL M.D.Performed By: #### PATH TO [facility] ####[place] [id number] USATotal Protein, Urineon 76-40-9527Jwdgypi (U) [Mass/Vol]67 mg/dLHigh0-9The [facility] Comment on above:Result Comment: PERFORMED BY: [place] [address] PATHOLOGIST VERTICAL CONTOUR BAND SAW OPERATOR ELIZABETH MOREL M.D.Performed By: #### UCREA, URTP ####[place] [id number] USAComplete Blood Count Auto Diff on 56-89-1471Clvhztukg (Bld) [#/Vol]0.0 10*3/uLNormal0.0-0.2The [facility] Physician GroupComment on above:Result Comment: PERFORMED BY: [place] [address] PATHOLOGIST VERTICAL CONTOUR BAND SAW OPERATOR ELIZABETH MOREL M.D.Performed By: #### MG, PT, CMP, PHOS, CBC, PTT ####[place] [id number] [place] Basophils/100 WBC (Bld)1.0 %Normal.The [facility] Physician GroupComment on above:Performed By: #### MG, PT, CMP, PHOS, CBC, PTT ####[place] [id number] USAEosinophils (Bld) [#/Vol]0.2 10*3/uLNormal0.0-0.45The [facility] GroupComment on above:Performed By: #### MG, PT, CMP, PHOS, CBC, PTT ####[place] [id number] USAEosinophils/100 WBC (Bld)4.2 %Normal.The [facility] Physician GroupComment on above:Performed By: #### MG, PT, CMP, PHOS, CBC, PTT ####[place] [id number] [place] Erythrocyte distribution width (RBC) [Ratio]16.3 %High11.9-15.3The [facility] Physician GroupComment on above:Performed By: #### MG, PT, CMP, PHOS, CBC, PTT ####[place] [id number] [place] Hematocrit (Bld) [Volume fraction]24.8 %Low34.0-46.4The [facility]ician GroupComment on above:Performed By: #### MG, PT, CMP, PHOS, CBC, PTT ####[address] Hemoglobin (Bld) [Mass/Vol]8.4 g/dLLow11.8-15.4The [facility] Comment on above:Performed By: #### MG, PT, CMP, PHOS, CBC, PTT ####[place] [address] USALymphocytes (Bld) [#/Vol]1.2 10*3/uLNormal1.00-4.8The [facility] Physician GroupComment on above: Performed By: #### MG, PT, CMP, PHOS, CBC, PTT ####[place] [address] USALymphocytes/100 WBC (Bld)29.3 %Normal. The [facility] Physician GroupComment on above:Performed By: #### MG, PT, CMP, PHOS, CBC, PTT ####[address]H (RBC) [Entitic mass]29.7 bzLwnpni66.7-34.3The [facility] Physician GroupComment on above:Performed By: #### MG, PT, CMP, PHOS, CBC, PTT ####[address]V (RBC) [Entitic vol]88.2 eOBwilii81-623Ylt [facility] Physician GroupComment on above:Performed By: #### MG, PT, CMP, PHOS, CBC, PTT ####[place] [address] USAMean Corpuscular HGB Conc33.7 g/uXWnxhzz38.0-35.0The [facility]ician GroupComment on above:Performed By: #### MG, PT, CMP, PHOS, CBC, PTT ####[place] [address] USAMonocytes (Bld) [#/Vol]0.5 10*3/uLNormal0.0-0.8The [facility] GroupComment on above:Performed By: #### MG, PT, CMP, PHOS, CBC, PTT ####[place] [id number] USAMonocytes/100 WBC (Bld)12.9 %Normal.The [facility]ician GroupComment on above:Performed By: #### MG, PT, CMP, PHOS, CBC, PTT ####[place] [address] USANeutrophils (Bld) [#/Vol]2.1 10*3/uLNormal1.8-7.7The [facility] GroupComment on above:Performed By: #### MG, PT, CMP, PHOS, CBC, PTT ####[place] [address] USANeutrophils/100 WBC (Bld)52.6 %Normal.The [facility]ician GroupComment on above:Performed By: #### MG, PT, CMP, PHOS, CBC, PTT ####[place] [id number] USANRBC% 0.1 /100{WBC}Normal0-0.5The [facility] [facility]ician GroupComment on above:Performed By: #### MG, PT, CMP, PHOS, CBC, PTT ####[place] [id number] USAPlatelet mean volume (Bld) [Entitic vol]9.2 fL Normal6.3-10.7The [facility] GroupComment on above:Performed By: #### MG, PT, CMP, PHOS, CBC, PTT ####[place] [address] USAPlatelets (Bld) [#/Vol]188 10*3/jIAraqqk837-156Apl [facility]ician GroupComment on above:Performed By: #### MG, PT, CMP, PHOS, CBC, PTT ####[address] [address] USARBC (Bld) [#/Vol]2.81 10*6/uLLow3.60-5.00The [facility]ician GroupComment on above:Performed By: #### MG, PT, CMP, PHOS, CBC, PTT ####[place] [address] USAWBC (Bld) [#/Vol]4.1 10*3/uL Normal3.8-11.6The [facility] [facility]ician GroupComment on above:Performed By: #### MG, PT, CMP, PHOS, CBC, PTT ####[place] [address] USAWhite Blood Count4.1 [CFU]/mLNormal3.8-11.6The [facility]ician GroupComment on above:Performed By: #### MG, PT, CMP, PHOS, CBC, PTT ####[place] [address] USAComprehensive Metabolic Panelon 17-49-6627Gaozvwq [Mass/Vol]3.3 g/dLLow 3.5-5.7The [facility]ician GroupComment on above:Performed By: #### MG, PT, CMP, PHOS, CBC, PTT ####[place] [address] USAAlbumin/Globulin [Mass ratio]1.4 {ratio}NormalThe [facility]ician GroupComment on above:Performed By: #### MG, PT, CMP, PHOS, CBC, PTT ####[place] [address] USAALP [Catalytic activity/Vol]29 U/NKjv00-528Uow [facility]ician GroupComment on above:Performed By: #### MG, PT, CMP, PHOS, CBC, PTT ####[place] [address] USAALT [Catalytic activity/Vol]4 U/LLow7-52The [facility]ician GroupComment on above:Performed By: #### MG, PT, CMP, PHOS, CBC, PTT ####[place] [address] USAAnion gap [Moles/Vol]11.2 mmol/LNormal6.0-15.0The [facility] GroupComment on above:Performed By: #### MG, PT, CMP, PHOS, CBC, PTT ####[place] [address] USAAST [Catalytic activity/Vol]17 U/VJuwteb19-60Bwf [facility]ician GroupComment on above:Performed By: #### MG, PT, CMP, PHOS, CBC, PTT ####[place] [address] USABilirubin [Mass/Vol]0.5 mg/dL Normal0.3-1.0The [facility]ician GroupComment on above:Performed By: #### MG, PT, CMP, PHOS, CBC, PTT ####[place] [address] USACalcium [Mass/Vol]8.2 mg/dLLow8.6-10.3The [facility] GroupComment on above:Performed By: #### MG, PT, CMP, PHOS, CBC, PTT ####[place] [address] [place] Chloride [Moles/Vol]105 mmol/LVxrdvy43-012Elh [facility]ician GroupComment on above:Performed By: #### MG, PT, CMP, PHOS, CBC, PTT ####[place] [address] USACO2 [Moles/Vol]26.6 mmol/L Gelrbo39.0-31.0The [facility]ician GroupComment on above:Performed By: #### MG, PT, CMP, PHOS, CBC, PTT ####[place] [address] USACreatinine [Mass/Vol]3.53 mg/dLHigh0.60-1.20The [facility]ician GroupComment on above:Performed By: #### MG, PT, CMP, PHOS, CBC, PTT ####[place] [address] USACreatinine Clr Calc Fsdpkcge40.77NoECU Health [facility]ie Hospital Physician GroupComment on above:Performed By: #### MG, PT, CMP, PHOS, CBC, PTT ####[place] [address] USAGFR/1.73 sq M.predicted MDRD (S/P/Bld) [Vol rate/Area]12.933 mL/min/{1.73_m2}NormalThe [facility] GroupComment on above:Performed By: #### MG, PT, CMP, PHOS, CBC, PTT ####[place] [address] [place] Globulin (S) [Mass/Vol]2.4 g/dLNoECU Health [facility] Hospital Physician GroupComment on above:Performed By: #### MG, PT, CMP, PHOS, CBC, PTT ####[place] [address] USAGlucose [Mass/Vol]77 mg/dL Hqbpmw62-500Iaw [facility]ician GroupComment on above:Result Comment: Random Glucose Reference Range is dependent on time and content of last meal. Glucose of more than 200 mg/dL in a nonstressed, ambulatory subject supports the diagnosis of Diabetes Mellitus. ADA recommended reference rangePerformed By: #### MG, PT, CMP, PHOS, CBC, PTT ####[place] [address] [place] Potassium [Moles/Vol]3.8 mmol/LNormal3.5-5.1The [facility] GroupComment on above:Performed By: #### MG, PT, CMP, PHOS, CBC, PTT ####[place] [address] USAProtein [Mass/Vol]5.7 g/dLLow 6.4-8.9The [facility] GroupComment on above:Performed By: #### MG, PT, CMP, PHOS, CBC, PTT ####[facility] [address] [place] [address] USASodium [Moles/Vol]139 mmol/VKyydfb746-567Cxx [facility]ician GroupComment on above:Performed By: #### MG, PT, CMP, PHOS, CBC, PTT ####[facility] [address] [place] [address] USAUrea nitrogen [Mass/Vol]64 mg/dLHigh7-25The [facility] GroupComment on above:Performed By: #### MG, PT, CMP, PHOS, CBC, PTT ####[facility] [address] [place] [address] USAECH echo transthoracicon 99-94-5929GAY echo transthoracicPAULDING COUNTY HOSPITAL Main [place] [address] [place] [id number] Echocardiogram Signed Patient: Marleni Dennis MR#: [id number] : 1950 Acct:[id number] Age/Sex: 74 / F ADM Date: 04/08/25 Loc: Room: [address] [place] [address] Type: ADM IN Attending Dr: Nick Antonio [...] GARCIA MD on (more content not included)...NormalThe [facility]oli HospitalMagnesiumon 00-33-3434Vszxeurit [Mass/Vol]1.1 mg/dLLow1.9-2.7The [facility] [place] Physician [facility] HospitalComment on above: Result Comment: PERFORMED BY: [address] [address] PATHOLOGIST VERTICAL CONTOUR BAND SAW OPERATOR ELIZABETH MOREL M.D.Performed By: #### MG, PT, CMP, PHOS, CBC, PTT ####[place] [address] [place] [address] USAPartial Thromboplastin Timeon 37-44-9841nPZM Coag (Bld) [Time]31.2 bGtfttq55.1-36.5The [facility] HospitalComment on above:Result Comment: A hematocrit value greater than 55% may lead to inaccurate results in coagulation testing. Patients having hematocrit values >55% require a special collection tube for coagulation studies. Please contact the laboratory at [phone] for redraw instructions. PERFORMED BY: [address] [place] [address] PATHOLOGIST VERTICAL CONTOUR BAND SAW OPERATOR ELIZABETH MOREL M.D.Performed By: #### MG, PT, CMP, PHOS, CBC, PTT ####[place] [address] [place] [address] [place] Phosphoruson 00-25-8540Scictguvp [Mass/Vol]3.2 mg/dLNormal2.5-4.5The [facility] Physician GroupComment on above:Performed By: #### MG, PT, CMP, PHOS, CBC, PTT ####[facility] [place] [id number] [facility] Prothrombin Time INRon 07-86-2551CDV Coag (PPP) [Relative time]1.3 {INR}Normal The [facility] Physician GroupComment on above:Result Comment: INR Therapeutic [...] #### MG, PT, CMP, PHOS, CBC, PTT ####[facility] [place] [address] USAPT Coag (PPP) [Time]15.2 sHigh9.0-12.9The [facility] Physician GroupComment on above:Result Comment: A hematocrit value greater than 55% may lead to inaccurate results in coagulation testing. Patients having hematocrit values >55% require a special collection tube for coagulation studies. Please contact the laboratory at [phone] for redraw instructions.Performed By: #### MG, PT, CMP, PHOS, CBC, PTT ####[facility] [place] [id number] USAAlanine aminotransferase [Enzymatic activity/volume] in Serum or PlasmaOrdered By: Sohail Figueroa on 33-34-7800KZG [Catalytic activity/Vol]6 U/LLow7-52[facility] HospitalComment on above:Performed By: #### PT, PTT, LIPASE, CMP, HS TROP, CBC #### [facility] [address] [place] [address] USAAlbumin [Mass/volume] in Serum or Plasma by Bromocresol green (BCG) dye binding methoOrdered By: Sohail Figueroa on 59-03-2933Eifajmw BCG dye [Mass/Vol]4.1 g/dL3.5-5.7FHolmes County Joel Pomerene Memorial HospitalAlkaline phosphatase [Enzymatic activity/volume] in Serum or PlasmaOrdered By: Sohail Figueroa on 14-98-7801PYE [Catalytic activity/Vol]38 U/YOkfvsk85-136HpnkzsdghOhiohealth Riverside Methodist HospitalComment on above:Performed By: #### PT, PTT, LIPASE, CMP, HS TROP, CBC #### [facility] [address] [place] [address] USAAppearance of UrineOrdered By: Sohail Figueroa on 04-08-2025 Appearance (U)ClearNormalClearOhiohealth Riverside Methodist HospitalComment on above: Order Comment: Name Collection Type:: Clean-Voided MidstreamPerformed By: #### ADDONUAPLUS ####[place] [address] USAAspartate aminotransferase [Enzymatic activity/volume] in Serum or PlasmaOrdered By: Sohail Figueroa on 09-12-3435ZFD [Catalytic activity/Vol]22 U/L Cyncab19-37KmfkssrkwOhiohealth Riverside Methodist HospitalComment on above:Performed By: #### PT, PTT, LIPASE, CMP, HS TROP, CBC #### [facility] [address] [place] [address] USABNP ser/plasOrdered By: Sohail Figueroa on 04-08-2025 Natriuretic peptide B (Bld) [Mass/Vol]1455.0 pg/mLHigh5-100[facility] HospitalComment on above:Result Comment: PERFORMED BY: [address] [place] [address] PATHOLOGIST VERTICAL CONTOUR BAND SAW OPERATOR ELIZABETH MOREL M.D.Performed By: #### BNP ####[place] [address] USABacteria [Presence] in Urine by AutomatedOrdered By: Sohail Figueroa on 59-52-2490Haboapcw Auto Ql (U)None seen [HPF]None SeenOhiohealth Riverside Methodist HospitalBasophils [#/volume] in Blood by Automated countOrdered By: Sohail Figueroa on 92-43-3603Wofrunsxg (Bld) [#/Vol]0.0 10*3/uLNormal0.0-0.2FHolmes County Joel Pomerene Memorial HospitalComment on above:Result Comment: PERFORMED BY: [place] [address] PATHOLOGIST VERTICAL CONTOUR BAND SAW OPERATOR ELIZABETH MOREL M.D.Performed By: #### PT, PTT, LIPASE, CMP, HS TROP, CBC #### [place] [address] USABasophils/100 leukocytes in Blood by Automated count Ordered By: Sohail Figueroa on 71-60-9038Excqesjsq/100 WBC (Bld)1.0 %Normal. [facility] HospitalComment on above:Performed By: #### PT, PTT, LIPASE, CMP, HS TROP, CBC #### [place] [address] USABilirubin Test strip Ql (U)Ordered By: Sohail Figueroa on 20-44-0967Lyopruokg Ql (U)NegativeNegativeOhiohealth Riverside Methodist Hospital Bilirubin.total [Mass/volume] in Serum or PlasmaOrdered By: Sohail Figueroa on 22-90-1858Cdfuhequw [Mass/Vol]0.6 mg/dLNormal0.3-1.0[facility] HospitalComment on above:Performed By: #### PT, PTT, LIPASE, CMP, HS TROP, CBC #### [place] [address] USACT abdomen pelvis wo conon 52-24-1600NX abdomen pelvis wo [facility] Main [place] [address] [place] [address] CT Scan Report Signed Patient: Marleni Dennis MR#: [id number] : 1950 Acct:[id number] Age/Sex: 74 / F ADM Date: 04/08/25 [...] Garnett M.D. 04/08/2025 8:27 PM Dictation Location: [place] [address] Transcribed By: [facility] 04/08/252026 Dictated By: Derek Garnett DO 04/08/252018 Signed By: 04/08/252026NoECU Health Bertie Hospital Physician GroupCalcium [Mass/volume] in Serum or PlasmaOrdered By: Sohail Figueroa on 23-98-2409Yljiyea [Mass/Vol]9.1 mg/dLNormal 8.6-10.3FHolmes County Joel Pomerene Memorial HospitalComment on above:Performed By: #### PT, PTT, LIPASE, CMP, HS TROP, CBC #### [facility] [address] [place] [address] USACarbon dioxide, total [Moles/volume] in Serum or Plasma Ordered By: Sohail Figueroa on 04-20-8951OH3 [Moles/Vol]25.2 mmol/KUcndco50.0-31.0 [facility] HospitalComment on above:Performed By: #### PT, PTT, LIPASE, CMP, HS TROP, CBC #### [facility] [address] [place] [address] USAChloride [Moles/volume] in Serum or PlasmaOrdered By: Sohail Figueroa on 61-84-1432Cfbfwxqz [Moles/Vol]101 mmol/FOhhzzc48-464TqsmgwkhsOhiohealth Riverside Methodist HospitalComment on above:Performed By: #### PT, PTT, LIPASE, CMP, HS TROP, CBC #### [facility] [address] [place] [address] USAColor of Urine by AutoOrdered By: Sohail Figueroa on 15-66-4552Bpuhd (U)Light-yellowNormalYSumma Health Akron Campus Comment on above:Order Comment: Name Collection Type:: Clean-Voided Midstream Performed By: #### ADDONUAPLUS ####[facility] [address] [place] [address] USAComplete Blood Count Auto Diffon 17-67-0984Uqdj Corpuscular HGB Conc34.0 g/nSGsnvjo60.0-35.0The [facility] Physician GroupComment on above:Performed By: #### PT, PTT, LIPASE, CMP, HS TROP, CBC #### [facility] [address] [place] [address] USAMonocytes/100 WBC (Bld)17.55 %Normal0.00-20.00The [facility]ician GroupComment on above:Performed By: #### PT, PTT, LIPASE, CMP, HS TROP, CBC #### [facility] [address] [place] [address] USANRBC%0.1 /100{WBC}Normal0-0.5The [facility] Comment on above:Performed By: #### PT, PTT, LIPASE, CMP, HS TROP, CBC #### [place] [address] USAWhite Blood Count4.4 [CFU]/mLNormal3.8-11.6The [facility] GroupComment on above:Performed By: #### PT, PTT, LIPASE, CMP, HS TROP, CBC #### [facility] [address] [place] [address] USAComprehensive Metabolic Panelon 19-80-8448Vxkuoek [Mass/Vol]4.1 g/dLNormal3.5-5.7The [facility] GroupComment on above: Performed By: #### PT, PTT, LIPASE, CMP, HS TROP, CBC #### [facility] [address] [place] [address] USACreatinine Clr Calc Rupxafhn76.34NormalThe [facility] [place] Physician [facility] HospitalComment on above:Performed By: #### PT, PTT, LIPASE, CMP, HS TROP, CBC #### [facility] [address] [place] [address] USAGFR/1.73 sq M.predicted MDRD (S/P/Bld) [Vol rate/Area] 13.433 mL/min/{1.73_m2}NormalThe [facility] [place] Physician [facility] HospitalComment on above: Performed By: #### PT, PTT, LIPASE, CMP, HS TROP, CBC #### [facility] [address] [place] [address] USACreatinine [Mass/volume] in Serum or PlasmaOrdered By: Sohail Figueroa on 07-92-0633Offofbemqx [Mass/Vol]3.42 mg/dLHigh0.60-1.20[facility] HospitalComment on above:Performed By: #### PT, PTT, LIPASE, CMP, HS TROP, CBC #### [facility] [address] [place] [address] USADipstick and Microscopicon 49-89-1612Bipkejbi,UrineNone SeenNormalNone SeenThe [facility]ician GroupComment on above:Order Comment: Name Collection Type:: Clean-Voided MidstreamPerformed By: #### ADDONUAPLUS ####[facility] [address] [place] [address] [place] Bilirubin,UrineNegativeNormalNegativeThe [facility]ician GroupComment on above:Order Comment: Name Collection Type:: Clean-Voided MidstreamPerformed By: #### ADDONUAPLUS ####[address] [address] USAGlucose Ql (U)NormalNormalNormalThe [facility] Physician [facility] HospitalComment on above:Order Comment: Name Collection Type:: Clean-Voided MidstreamPerformed By: #### ADDONUAPLUS ####[address] [address] USAHyaline Casts,UrineNoneNormal0-8The [facility] Physician GroupComment on above:Order Comment: Name Collection Type:: Clean- Voided MidstreamResult Comment: PERFORMED BY: [place] [address] PATHOLOGIST VERTICAL CONTOUR BAND SAW OPERATOR ELIZABETH MOREL M.D.Performed By: #### ADDONUAPLUS ####[place] [id number] USANitrite,UrineNegativeNormal NegativeCampbellton-Graceville Hospital Physician GroupComment on above:Order Comment: Name Collection Type:: Clean-Voided MidstreamPerformed By: #### ADDONUAPLUS ####[place] [id number] USAOccult Blood,UrineNegativeNormalNegativeCampbellton-Graceville Hospital Physician GroupComment on above: Order Comment: Name Collection Type:: Clean-Voided MidstreamResult Comment: PERFORMED BY: [facility] [address] [place] [address] PATHOLOGIST VERTICAL CONTOUR BAND SAW OPERATOR ELIZABETH MOREL M.D.Performed By: #### ADDONUAPLUS ####[place] [address] USARBC,Ffsyk5-3Zpdtdo8-8Wce [facility] GroupComment on above:Order Comment: Name Collection Type:: Clean-Voided MidstreamPerformed By: #### ADDONUAPLUS ####[place] [id number] USASpecificy Garfield,Urine1.006 Normal1.001-1.030The [facility] Physician GroupComment on above:Order Comment: Name Collection Type:: Clean-Voided MidstreamPerformed By: #### ADDONUAPLUS ####[place] [address] [place] [id number] [place] Urobilinogen,UrineNormalNormalNormParrish Medical Center Physician GroupComment on above:Order Comment: Name Collection Type:: Clean-Voided MidstreamPerformed By: #### ADDONUAPLUS ####[address] [address] USAWBC,Ymlyp8-1Oknlnl1-9Klv [facility] Physician GroupComment on above: Order Comment: Name Collection Type:: Clean-Voided MidstreamPerformed By: #### ADDONUAPLUS ####[address] [address] [facility] CENTERECG 12 lead ECGon 00-07-9598BSX 12 lead ECGPAULDING COUNTY [place] [address] Electrocardiograph Report Signed Patient: Marleni Dennis MR#: [id number] : 1950 Acct:[id number] Age/Sex: 74 / F ADM Date: 04/08/25 Loc: Room: [address] [place] [address] Type: ADM IN Attending Dr: Rajiv Trejo [...] fascicular block Confirmed by Evette Mari MD ([id number]) on 04/09/2025 7:24:05 AM Referred By: Electronically Signed By: Evette Mari MD Transcribed By: MUS Signed By Evette Mari MD 03/19 12/10 0724NormalThe [place] Physician GroupEosinophils [#/volume] in Blood by Automated countOrdered By: Sohail Figueroa on 00-85-9889Myjgxphtbvp (Bld) [#/Vol] 0.1 10*3/uLNormal0.0-0.45[facility] HospitalComment on above: Performed By: #### PT, PTT, LIPASE, CMP, HS TROP, CBC #### [facility] [address] [place] [address] USAEosinophils/100 leukocytes in Blood by Automated count Ordered By: Sohail Figueroa on 66-81-8655Hjyqyltmvbo/100 WBC (Bld)2.6 %Normal. [facility] HospitalComment on above:Performed By: #### PT, PTT, LIPASE, CMP, HS TROP, CBC #### [facility] [address] [place] [address] USAEpithelial cells.squamous [#/area] in Urine sediment by Automated countOrdered By: Sohail Figueroa on 89-17-7195Hrkdgozwgo cells.squamous Auto (Urine sed) [#/Area]N/AFHolmes County Joel Pomerene Memorial HospitalErythrocyte distribution width [Ratio] by Automated countOrdered By: Sohail Figueroa on 02-84-5604Jwrihpcmbpz distribution width (RBC) [Ratio]16.0 %High11.9-15.3 [facility] HospitalComment on above:Performed By: #### PT, PTT, LIPASE, CMP, HS TROP, CBC #### [facility] [address] [place] [address] USAErythrocytes [#/area] in Urine sediment by Automated count Ordered By: Sohail Figueroa on 93-48-5085ZKG Auto (Urine sed) [#/Area]1-2 [HPF]0-4 [facility] HospitalErythrocytes [#/volume] in Blood by Automated countOrdered By: Sohail Figueroa on 21-17-1830AYI (Bld) [#/Vol]3.34 10*6/uLLow 3.60-5.00[facility] HospitalComment on above:Performed By: #### PT, PTT, LIPASE, CMP, HS TROP, CBC #### [facility] [address] [place] [address] USAGlucose [Mass/volume] in Serum or PlasmaOrdered By: Sohail Figueroa on 71-17-8787Ptiunjz [Mass/Vol]110 mg/qHRcqw95-775HvjqwamvsOhiohealth Riverside Methodist HospitalComment on above:ADA recommended reference rangeRandom Glucose Reference [...] PTT, LIPASE, CMP, HS TROP, CBC #### [place] [id number] USAGlucose [Mass/volume] in Urine by Test stripOrdered By: Sohail Figueroa on 69-86-1121Whmiglo Test strip (U) [Mass/Vol]Normal mg/dLNormal [facility] HospitalHematocrit [Volume Fraction] of Blood by Automated countOrdered By: Sohail Figueroa on 44-04-9739Elgpbvbvbs (Bld) [Volume fraction]29.5 %Low34.0-46.4FHolmes County Joel Pomerene Memorial HospitalComment on above: Performed By: #### PT, PTT, LIPASE, CMP, HS TROP, CBC #### [facility] [address] [place] [address] USAHemoglobin Test strip Ql (U)Ordered By: Sohail Figueroa on 68-10-9381Lgosjqzlvx Ql (U)NegativeNegativeOhiohealth Riverside Methodist Hospital Hemoglobin [Mass/volume] in BloodOrdered By: Sohail Figueroa on 04-08-2025 Hemoglobin (Bld) [Mass/Vol]10.0 g/dLLow11.8-15.4FHolmes County Joel Pomerene Memorial HospitalComment on above:Performed By: #### PT, PTT, LIPASE, CMP, HS TROP, CBC #### [facility] [address] [place] [address] USAHyaline casts [#/area] in Urine sediment by Automated countOrdered By: Sohail Figueroa on 54-70-2457Vlwzulq casts Auto (Urine sed) [#/Area]None [LPF]0-8[facility] HospitalINR in Platelet poor plasma by Coagulation assayOrdered By: Sohail Figueroa on 19-83-3548LXI Coag (PPP) [Relative time]1.4 {INR}NormalOhiohealth Riverside Methodist HospitalComment on above: INR Therapeutic Range A) Pre- [...] PTT, LIPASE, CMP, HS TROP, CBC #### [facility] [address] [place] [address] USAKetones [Presence] in Urine by Test stripOrdered By: Sohail Figueroa on 98-63-9474Rgjocen Ql (U)NegativeNormalNegNewark HospitalComment on above:Order Comment: Name Collection Type:: Clean- Voided MidstreamPerformed By: #### ADDONUAPLUS ####[facility] [place] [id number] USALeukocyte esterase [Presence] in Urine by Test stripOrdered By: Sohail Figueroa on 12-84-5060Cpcdyrjhf esterase Test strip Ql (U)NegativeNormalNegNewark HospitalComment on above:Order Comment: Name Collection Type:: Clean-Voided MidstreamPerformed By: #### ADDONUAPLUS ####[place] [address] [place] [id number] USALeukocytes [#/area] in Urine sediment by Automated countOrdered By: Sohail Figueroa on 61-88-0574WRH Auto (Urine sed) [#/Area]1-2 [HPF]0-4FHolmes County Joel Pomerene Memorial HospitalLeukocytes [#/volume] corrected for nucleated erythrocytes in Blood by Automated counOrdered By: Sohail Figueroa on 48-01-8475ZVG corrected for nucl RBC Auto (Bld) [#/Vol]4.4 10*3/uL3.8-11.6FHolmes County Joel Pomerene Memorial HospitalLeukocytes [#/volume] in Blood by Automated countOrdered By: Sohail Figueroa on 17-71-1939TVX (Bld) [#/Vol]4.4 10*3/uLNormal3.8-11.6FHolmes County Joel Pomerene Memorial HospitalComment on above:Performed By: #### PT, PTT, LIPASE, CMP, HS TROP, CBC #### [place] [id number] USALipase [Enzymatic activity/volume] in Serum or Plasma Ordered By: Sohail Figueroa on 01-78-0413Izyinw [Catalytic activity/Vol]110.0 U/L High11.0-82.0[facility] HospitalComment on above:Result Comment: PERFORMED BY: [place] [address] PATHOLOGIST VERTICAL CONTOUR BAND SAW OPERATOR ELIZABETH MOREL M.D.Performed By: #### PT, PTT, LIPASE, CMP, HS TROP, CBC #### [facility] [address] [place] [address] USALymphocytes [#/volume] in Blood by Automated countOrdered By: Sohail Figueroa on 22-57-1996Ggesrhgcbov (Bld) [#/Vol]1.0 10*3/uLNormal1.00-4.8 [facility] HospitalComment on above:Performed By: #### PT, PTT, LIPASE, CMP, HS TROP, CBC #### [facility] [address] [place], [place] [id number] USALymphocytes/100 leukocytes in Blood by Automated count Ordered By: Sohail Figueroa on 54-95-8860Ygqqpmgyprn/100 WBC (Bld)23.3 %Normal. [facility] HospitalComment on above:Performed By: #### PT, PTT, LIPASE, CMP, HS TROP, CBC #### [facility] [address] [Entitic mass] by Automated countOrdered By: Sohail Figueroa on 97-01-6165WHP (RBC) [Entitic mass]30.1 fxQhygjh16.7-34.3FHolmes County Joel Pomerene Memorial HospitalComment on above:Performed By: #### PT, PTT, LIPASE, CMP, HS TROP, CBC #### [facility] [address] Auto (RBC) [Mass/Vol]Ordered By: Sohail Figueroa on 64-00-4637EVND (RBC) [Mass/Vol]34.0 g/dL32.0-35.0[facility] HospitalMCV [Entitic volume] by Automated countOrdered By: Sohail Figueroa on 58-41-1071VRA (RBC) [Entitic vol]88.4 oOEkeill89-777DrdusneafOhiohealth Riverside Methodist HospitalComment on above:Performed By: #### PT, PTT, LIPASE, CMP, HS TROP, CBC #### [facility] [address] [place] [address] USAMonocyte distribution width [Entitic volume] in Blood by AutomatedOrdered By: Sohail Figueroa on 61-24-1599Emcevwox distribution width Auto (Bld) [Entitic vol]17.55 %0.00-20.00[facility] HospitalMonocytes [#/volume] in Blood by Automated countOrdered By: Sohail Figueroa on 04-08-2025 Monocytes (Bld) [#/Vol]0.4 10*3/uLNormal0.0-0.8[facility] Comment on above:Performed By: #### PT, PTT, LIPASE, CMP, HS TROP, CBC #### [facility] [address] [place] [address] USAMonocytes/100 leukocytes in Blood by Automated count Ordered By: Sohail Figueroa on 13-24-3554Uqfrullbl/100 WBC (Bld)10.0 %Normal. [facility] HospitalComment on above:Performed By: #### PT, PTT, LIPASE, CMP, HS TROP, CBC #### [facility] [address] [place] [address] USANeutrophils [#/volume] in Blood by Automated countOrdered By: Sohail Figueroa on 79-11-4008Eegyaztxrdv (Bld) [#/Vol]2.8 10*3/uLNormal1.8-7.7 [facility] HospitalComment on above:Performed By: #### PT, PTT, LIPASE, CMP, HS TROP, CBC #### [facility] [address] [place] [address] USANeutrophils/100 leukocytes in Blood by Automated count Ordered By: Sohail Figueroa on 50-89-4160Sazhzadjvmk/100 WBC (Bld)63.1 %Normal. [facility] HospitalComment on above:Performed By: #### PT, PTT, LIPASE, CMP, HS TROP, CBC #### [facility] [address] [place] [address] USANitrite Test strip Ql (U)Ordered By: Sohail Figueroa on 49-25-7791Oqlwrll Ql (U)NegativeNegativeOhiohealth Riverside Methodist HospitalNo Panel InformationOrdered By: Sohail Figueroa on 62-14-6750Vrwisavee GFR (CKD-EPI) 13.433 mL/MinOhiohealth Riverside Methodist HospitalPharmacy Creatinine Clearance (Chem12.34[facility] HospitalNucleated erythrocytes [Presence] in Blood by Automated countOrdered By: Sohail Figueroa on 03-81-8100Uxfknciar RBC Auto Ql (Bld)0.1 /100{WBC}0-0.5FHolmes County Joel Pomerene Memorial HospitalPartial Thromboplastin Timeon 26-60-6060gMIZ Coag (Bld) [Time]31.6 nTkebty13.1-36.5The [facility] Physician GroupComment on above:Result Comment: A hematocrit value greater than 55% may lead to inaccurate results in coagulation testing. Patients having hematocrit values >55% require a special collection tube for coagulation studies. Please contact the laboratory at [phone] for redraw instructions. PERFORMED BY: [facility] [address] [place] [address] PATHOLOGIST VERTICAL CONTOUR BAND SAW OPERATOR ELIZABETH MOREL M.D.Performed By: #### PT, PTT, LIPASE, CMP, HS TROP, CBC #### [facility] [address] [place] [address] USAPlatelet mean volume [Entitic volume] in Blood by Automated countOrdered By: Sohail Figueroa on 65-04-0246Zrdalroh mean volume (Bld) [Entitic vol]9.5 fLNormal6.3-10.7FHolmes County Joel Pomerene Memorial HospitalComment on above:Performed By: #### PT, PTT, LIPASE, CMP, HS TROP, CBC #### [place] [address] USAPlatelets [#/volume] in Blood by Automated countOrdered By: Sohail Figueroa on 04-35-1610Bkklmxjmq (Bld) [#/Vol]211 10*3/pEKfaers814-299 [facility] HospitalComment on above:Performed By: #### PT, PTT, LIPASE, CMP, HS TROP, CBC #### [place] [address] USAPotassium [Moles/volume] in Serum or PlasmaOrdered By: Sohail Figueroa on 26-90-2517Spjrjbanx [Moles/Vol]4.3 mmol/LNormal3.5-5.1FHolmes County Joel Pomerene Memorial HospitalComment on above:Performed By: #### PT, PTT, LIPASE, CMP, HS TROP, CBC #### [place] [address] USAProtein [Mass/volume] in Serum or PlasmaOrdered By: Sohail Figueroa on 44-88-4274Kmgwozp [Mass/Vol]7.1 g/dLNormal6.4-8.9[facility] HospitalComment on above:Performed By: #### PT, PTT, LIPASE, CMP, HS TROP, CBC #### [place] [address] USAProtein [Mass/volume] in Urine by Test stripOrdered By: Sohail Figueroa on 50-24-4361Obnhlhd (U) [Mass/Vol]50 mg/dLNormalNegativeOhiohealth Riverside Methodist HospitalComment on above:Order Comment: Name Collection Type:: Clean-Voided MidstreamPerformed By: #### ADDONUAPLUS ####[facility] [address] [place] [id number] USAProthrombin time (PT)Ordered By: Sohail Figueroa on 88-45-6352GC Coag (PPP) [Time]16.2 sHigh9.0-12.9[facility] HospitalComment on above:A hematocrit value greater than 55% may lead to inaccurate results in coagulation testing. Patientshaving hematocrit values >55% require a special collection tube for coagulation studies. Please c ontact the laboratory at [phone] for redraw instructions.Result Comment: A hematocrit value greater than 55% may lead to inaccurate results in coagulation testing. Patients having hematocrit values >55% require a special collection tube for coagulation studies. Please contact the laboratory at [phone] for redraw instructions.Performed By: #### PT, PTT, LIPASE, CMP, HS TROP, CBC #### [facility] [address] [place] [id number] USASerum globulin measurement by calculation (mass/volume) Ordered By: Sohail Figueroa on 16-85-8536Lzqwkiju (S) [Mass/Vol]3.0 g/dLNormal [facility] HospitalComment on above:Performed By: #### PT, PTT, LIPASE, CMP, HS TROP, CBC #### [facility] [address] [place] [address] USASerum or plasma albumin/globulin mass ratioOrdered By: Sohail Figueroa on 97-43-7361Emktali/Globulin [Mass ratio]1.4 {ratio}Normal [facility] HospitalComment on above:Performed By: #### PT, PTT, LIPASE, CMP, HS TROP, CBC #### [facility] [address] [place] [id number] USASerum or plasma anion gap determinationOrdered By: Sohail Figueroa on 51-42-8368Admxx gap [Moles/Vol]15.1 mmol/LHigh6.0-15.0[facility] HospitalComment on above:Performed By: #### PT, PTT, LIPASE, CMP, HS TROP, CBC #### [place] [id number] USASodium [Moles/volume] in Serum or PlasmaOrdered By: Sohail Figueroa on 26-79-7077Etzdkp [Moles/Vol]137 mmol/XHdhdku853-824MnvjfmueoOhiohealth Riverside Methodist HospitalComment on above:Performed By: #### PT, PTT, LIPASE, CMP, HS TROP, CBC #### [facility] [address] [place] [id number] USASpecific gravity Test strip (U) [Rel density]Ordered By: Sohail Figueroa on 03-17-3270Hgueyfet gravity (U) [Rel density]1.0061.001-1.030 [facility] HospitalTroponin I High Sensitivityon 04-08-2025 Troponin I High Wduaiivcbji09Jhtj5-65Ola [facility] Physician GroupComment on above:Result Comment: The Troponin units of report have been changed to meet the Chest Pain Accreditation requirement, element EC5.M1l2. Troponin units are changed from pg/ml to ng/L. Also, the decimal is removed and results are in whole numbers. PERFORMED BY: [place] [address] PATHOLOGIST VERTICAL CONTOUR BAND SAW OPERATOR ELIZABETH MOREL M.D.Performed By: #### PT, PTT, LIPASE, CMP, HS TROP, CBC #### [place] [address] USATroponin I.cardiac [Mass/volume] in Serum or Plasma by Detection limit <= 0.01 ng/mLOrdered By: Sohail Figueroa on 48-55-4712Icrtdcoh I.cardiac DL <= 0.01 ng/mL [Mass/Vol]25 ng/LHigh0-15[facility] HospitalComment on above:The Troponin units of report have been changed to meet the Chest Pain Accreditation requirement, element EC5.M1l2. Troponin units are changed from pg/ml to ng/L. Also, the decimal is removed and results are in whole numbers.Type and Screenon 03-49-9666EPR and Rh group Nom (Bld)Blood group AB Rh(D) positiveNoECU Health Bertie Hospital Physician GroupComment on above:Result Comment: PERFORMED BY: [place] [address] PATHOLOGIST VERTICAL CONTOUR BAND SAW OPERATOR ELIZABETH MOREL M.D.Urea nitrogen [Mass/volume] in Serum or PlasmaOrdered By: Sohail Figueroa on 73-76-3090Atto nitrogen [Mass/Vol]71 mg/dLUnion [facility]-[address] [place], [place] [address]Comment on above:Performed By: #### PT, PTT, LIPASE, CMP, HS TROP, CBC #### [facility] [address] [place] [address] USAUrobilinogen Test strip (U) [Mass/Vol]Ordered By: Sohail Figueroa on 69-34-1908Ugdlcnbtdipc (U) [Mass/Vol]Normal mg/dLNormAvita Health System Bucyrus HospitalX-ray reportOrdered By: Derek Garnett on 44-38-6683Agfgg reportPAULDING COUNTY [facility] Main [place] [address] [place] [address] XRay Report Signed Patient: Marleni Dennis MR#: [id number] : 1950 Acct:[id number] Age/Sex: 74 / F ADM Date: 5 [...] Derek Garnett DO 04/08/252038 Signed By: 04/08/252042 [facility] HospitalXR chest 2V*on 46-78-7200DK chest 2V*[facility] Main [place] [address] [place] [address] XRay Report Signed Patient: Marleni Dennis MR#: [id number] : 1950 Acct:[id number] Age/Sex: 74 / F ADM Date: 04/08/25 [...] By: Derek Garnett DO 04/08/252038 Signed By: 04/08/252042[facility] Physician GroupaPTT in Platelet poor plasma by Coagulation assayOrdered By: Sohail Figueroa on 02-52-7178fNDP Coag (PPP) [Time] 31.6 s25.1-36.5FHolmes County Joel Pomerene Memorial HospitalComment on above:A hematocrit value greater than 55% may lead to inaccurate results in coagulation testing. Patientshaving hematocrit values >55% require a special collection tube for coagulation studies. Please contact the laboratory at [phone] for redraw instructions.pH of Urine by Test stripOrdered By: Sohail Figueroa on 07-73-8470zQ (U)6.5 [pH]Normal5.0-9.0[facility] HospitalComment on above:Order Comment: Name Collection Type:: Clean-Voided MidstreamPerformed By: #### ADDONUAPLUS ####[facility] [address] [place] [address] USACBC (INCLUDES DIFF/PLT)on 84-87-1012Hokqbwlro (Bld) [#/Vol]0.02 10*3/uL Normal0-200Quest DiagnosticsComment on above:Performed By: #### 3020, 13045, %SBCULI, 6399 #### [facility] [address], [address] [place] [address] Primer Inspector: Figueroa Jacques MDBasophils/100 WBC (Bld)0.5 %NormalQuest DiagnosticsComment on above:Performed By: #### 3020, 98540, %SBCULI, 6399 #### [facility] [address], [address] [place] [address] Primer Inspector: Figueroa Jacques MDEosinophils (Bld) [#/Vol]0.121 10*3/uLNormal 15-500Quest DiagnosticsComment on above:Performed By: #### 3020, 73527, %SBCULI, 6399 #### [facility] [address], [address] [place] [address] Primer Inspector: Figueroa Jacques MDEosinophils/100 WBC (Bld)3.1 %NormalQuest DiagnosticsComment on above:Performed By: #### 3020, 76236, %SBCULI, 6399 #### [facility] [place] [address] Primer Inspector: Figueroa Jacques MDErythrocyte distribution width (RBC) [Ratio] 15.8 %High11.0-15.0Quest DiagnosticsComment on above:Performed By: #### 3020, 20061, %SBCULI, 6399 #### [facility] of [address], [address] [place] [address] Primer Inspector: Figueroa Jacques MDHematocrit (Bld) [Volume fraction]27.4 %Low 35.0-45.0Quest DiagnosticsComment on above:Performed By: #### 3020, 42735, %SBCULI, 6399 #### [facility] of [address], [address] [place] [address] Primer Inspector: Figueroa Jacques MDHemoglobin (Bld) [Mass/Vol]8.7 g/dLLow 11.7-15.5Quest DiagnosticsComment on above:Performed By: #### 3020, 14502, %SBCULI, 6399 #### [facility] of [address], [address] [place] [address] Primer Inspector: Figueroa Jacques MDLymphocytes (Bld) [#/Vol]0.94 10*3/uLNormal 850-3900Quest DiagnosticsComment on above:Performed By: #### 3020, 74752, %SBCULI, 6399 #### [facility] of [place] [address] Primer Inspector: Figueroa Jacques MDLymphocytes/100 WBC (Bld)24.1 %NormalQuest DiagnosticsComment on above:Performed By: #### 3020, 13509, %SBCULI, 6399 #### [facility] of [place] [address] Primer Inspector: Figueroa Jacques MDMCH (RBC) [Entitic mass]29.6 jnXwvaby39.0-33.0 Quest DiagnosticsComment on above:Performed By: #### 3020, 82641, %SBCULI, 6399 #### [facility] of [address], [address] [place] [address] Primer Inspector: Figueroa Jacques MDMCHC (RBC) [Mass/Vol]31.8 g/dLLow32.0-36.0 Quest DiagnosticsComment on above:Result Comment: For adults, a slight decrease in the calculated MCHC value (in the range of 30 to 32 g/dL) is most likely not clinically significant; however, it should be interpreted with caution in correlation with other red cell parameters and the patient's clinical condition.Performed By: #### 3020, 52857, %SBCULI, 6399 #### [facility] of [place] [address] Primer Inspector: Figueroa CEVALLOSCV (RBC) [Entitic vol]93.2 mJCmsusm73.0-100.0 Quest DiagnosticsComment on above:Performed By: #### 3020, 34979, %SBCULI, 6399 #### [facility] of [place] [address] Primer Inspector: Figueroa Jacques MDMonocytes (Bld) [#/Vol]0.507 10*3/uLNormal 200-950Quest DiagnosticsComment on above:Performed By: #### 3020, 19344, %SBCULI, 6399 #### [facility] of [place] [address] Primer Inspector: Figueroa Jacques MDMonocytes/100 WBC (Bld)13.0 %NormalQuest DiagnosticsComment on above:Performed By: #### 3020, 89882, %SBCULI, 6399 #### [facility] of [place] [address] Primer Inspector: Figueroa Jacques MDNeutrophils (Bld) [#/Vol]2.313 10*3/uLNormal 1500-7800Quest DiagnosticsComment on above:Performed By: #### 3020, 63093, %SBCULI, 6399 #### [facility] of [place] [address] Primer Inspector: Figueroa Jacques MDNeutrophils/100 WBC (Bld)59.3 %NormalQuest DiagnosticsComment on above:Performed By: #### 3020, 93017, %SBCULI, 6399 #### [facility] of [address], [address] [place] [address] Primer Inspector: Figueroa Jacques MDPlatelet mean volume (Bld) [Entitic vol]11.3 fLNormal7.5-12.5Quest DiagnosticsComment on above:Performed By: #### 3020, 90931, %SBCULI, 6399 #### [facility] of [address], [address] [place] [address] Primer Inspector: Figueroa Jacques MDPlatelets (Bld) [#/Vol]188 10*3/uLNormal 140-400Quest DiagnosticsComment on above:Performed By: #### 3020, 30225, %SBCULI, 6399 #### [facility] of [address], [address] [place] [address] Primer Inspector: Figueroa Jacques MDRBC (Bld) [#/Vol]2.94 10*6/uLLow3.80-5.10Quest DiagnosticsComment on above:Performed By: #### 3020, 83263, %SBCULI, 6399 #### [facility] of [address], [address] [place] [address] Primer Inspector: Figueroa Jacques MDWBC (Bld) [#/Vol]3.9 10*3/uLNormal3.8-10.8 Quest DiagnosticsComment on above:Performed By: #### 3020, 77513, %SBCULI, 6399 #### [facility] of [address], [address] [place] [address] Primer Inspector: Figueroa Jacques MDCOMPREHENSIVE METABOLIC PANELon 04-04-2025 Albumin [Mass/Vol]3.6 g/dLNormal3.6-5.1Quest DiagnosticsComment on above: Performed By: #### 3020, 40860, %SBCULI, 6399 #### [facility] of [address], [address] [place] [address] Primer Inspector: Figueroa Jacques MDAlbumin/Globulin [Mass ratio]1.4 {ratio}Normal 1.0-2.5Quest DiagnosticsComment on above:Performed By: #### 3020, 83700, %SBCULI, 6399 #### [facility] of [address], [address] [place] [address] Primer Inspector: Figueroa Jacques MDALP [Catalytic activity/Vol]37 U/INtkque99-832 Quest DiagnosticsComment on above:Performed By: #### 3020, 47794, %SBCULI, 6399 #### [facility] of [place] [address] Primer Inspector: Figueroa Jacques MDALT [Catalytic activity/Vol]5 U/LLow6-29Quest DiagnosticsComment on above:Performed By: #### 3020, 79625, %SBCULI, 6399 #### [facility] of [place] [address] Primer Inspector: Figueroa Jacques MDAST [Catalytic activity/Vol]15 U/ABucyhi49-42 Quest DiagnosticsComment on above:Performed By: #### 3020, 97490, %SBCULI, 6399 #### [facility] of [place] [address] Primer Inspector: Figueroa Jacques MDBilirubin [Mass/Vol]0.6 mg/dLNormal0.2-1.2 Quest DiagnosticsComment on above:Performed By: #### 3020, 28185, %SBCULI, 6399 #### [facility] of [place] [address] Primer Inspector: Figueroa Jacques MDCalcium [Mass/Vol]8.8 mg/dLNormal8.6-10.4Quest DiagnosticsComment on above:Performed By: #### 3020, 42572, %SBCULI, 6399 #### [facility] of [place] [address] Primer Inspector: Figueroa Jacques MDChloride [Moles/Vol]98 mmol/XVfasuq37-930Shkql DiagnosticsComment on above:Performed By: #### 3020, 24331, %SBCULI, 6399 #### [facility] of [address], [address] [place] [address] Primer Inspector: Figueroa Jacques MDCO2 [Moles/Vol]25 mmol/HZbzqnx25-75Nmqpd DiagnosticsComment on above:Performed By: #### 3020, 79970, %SBCULI, 6399 #### [facility] of [place] [address] Primer Inspector: Figueroa OCHOAreatinine [Mass/Vol]4.59 mg/dLHigh0.60-1.00 Quest DiagnosticsComment on above:Performed By: #### 3020, 28299, %SBCULI, 6399 #### [facility] of [place] [address] Primer Inspector: Figueroa Jacques MDGFR/1.73 sq M.predicted among non-blacks MDRD (S/P/Bld) [Vol rate/Area]9 mL/min/{1.73_m2}Low> OR = 60Quest DiagnosticsComment on above:Performed By: #### 3020, 23985, %SBCULI, 6399 #### [facility] of [place] [address] Primer Inspector: Figueroa Jacques MDGlobulin (S) [Mass/Vol]2.5 g/dLNormal1.9-3.7 Quest DiagnosticsComment on above:Performed By: #### 3020, 94560, %SBCULI, 6399 #### [facility] of [place] [address] Primer Inspector: Figueroa Jacques MDGlucose [Mass/Vol]96 mg/zLWfnywf56-99Fnznc DiagnosticsComment on above:Result Comment: Fasting reference intervalPerformed By: #### 3020, 09183, %SBCULI, 6399 #### [facility] of [place] [address] Primer Inspector: Figueroa Jacques MDPotassium [Moles/Vol]3.8 mmol/LNormal3.5-5.3 Quest DiagnosticsComment on above:Performed By: #### 3020, 42730, %SBCULI, 6399 #### [facility] of [place] [address] Primer Inspector: Figueroa Jacques MDProtein [Mass/Vol]6.1 g/dLNormal6.1-8.1Quest DiagnosticsComment on above:Performed By: #### 3020, 05066, %SBCULI, 6399 #### [facility] of [place] [address] Primer Inspector: Figueroa Jacques MDSodium [Moles/Vol]136 mmol/KRswmjd194-779Alvcl DiagnosticsComment on above:Performed By: #### 3020, 99949, %SBCULI, 6399 #### [facility] of [place] [address] Primer Inspector: Figueroa Jacques MDUrea nitrogen [Mass/Vol]69 mg/dLHigh7-25Quest DiagnosticsComment on above:Performed By: #### 3020, 96215, %SBCULI, 6399 #### [facility] [facility] [place] [address] Primer Inspector: Figueroa Jacques MDUrea nitrogen/Creatinine [Mass ratio]15 mg/mg Normal6-22Quest DiagnosticsComment on above:Performed By: #### 3020, 81953, %SBCULI, 6399 #### [facility] [place] [address] Primer Inspector: Figueroa Jacques MDCULTURE, URINE, ROUTINEon 06-81-4112OCZZVOH, URINE, ROUTINESEE NOTENormalQuest DiagnosticsComment on above:Result Comment: CULTURE, URINE, ROUTINE Micro Number: [id number] Test Status: Final Specimen Source: Urine Specimen Quality: Adequate Result: Less than 10,000 CFU/mL of single Gram positive organism isolated. No further testing will be performed. If clinically indicated, recollection using a method to minimize contamination, with prompt transfer to Urine Culture Transport Tube, is recommended.Performed By: #### 3020, 58174, %SBCULI, 6399 #### [facility] [place] [address] Primer Inspector: Figueroa Jacques MDOffice Visiton 38-49-5060Wifhkg-up visit [id number] Marleni Dennis 1950 F Date Provider Department [place] 04/04/2025 [id number], ADAM CARD [facility] Family History Problem Relation Age of Onset Coronary artery disease Mother Stroke Mother Coronary artery disease Father Ovarian cancer Sister Family Status - Relation Status Age at Mother Father Sister Level of Service:34831 NC OFFICE/OUTPATIENT ESTABLISHED MOD MDM 30 [facility] CULTUREon 69-05-6380AASXHDZMY URINE CULTURENormalQuest DiagnosticsComment on above:Result Comment: CULTURE INDICATED - RESULTS TO FOLLOWPerformed By: #### 3020, 46420, %SBCULI, 6399 #### [facility] [place] [address] Primer Inspector: Figueroa Jacques MDURINALYSIS, COMPLETE W/REFLEX TO CULTUREon 79-41-1724Kyxpofhhog (U)CLOUDYAbnormalCLEARQuest DiagnosticsComment on above: Performed By: #### 3020, 74720, %SBCULI, 6399 #### [facility] [place] [address] Primer Inspector: Figueroa Jacques MDBACTERIANONVirginia SEENNormalNONE SEENQuest DiagnosticsComment on above:Performed By: #### 3020, 16452, %SBCULI, 6399 #### [facility] [address] , [address] [place] [address] Primer Inspector: Figueroa Jacques MDBilirubin Ql (U)NegativeNormalNEGATIVEQuest DiagnosticsComment on above:Performed By: #### 3020, 01257, %SBCULI, 6399 #### [facility] [place] [address] [place] , [address] [place] [address] Primer Inspector: Figueroa OCHOAolor (U)YELLOWNormalYELLOWQuest [facility]ostics Comment on above:Performed By: #### 3020, 25779, %SBCULI, 6399 #### [facility] of [address], [address] [place] [address] Primer Inspector: Figueroa Jacques MDGlucose Ql (U)NegativeNormalNEGATIVEQuest DiagnosticsComment on above:Performed By: #### 3020, 19068, %SBCULI, 6399 #### [facility] of [address], [address] [place] [address] Primer Inspector: Figueroa Jacques MDHYALINE EGJY95-79KfmyqqxvYBNV SEENQuest DiagnosticsComment on above:Performed By: #### 3020, 01203, %SBCULI, 6399 #### [facility] [place] [address] Primer Inspector: Figueroa Jacques MDKetones Ql (U)NegativeNormalNEGATIVEQuest DiagnosticsComment on above:Performed By: #### 3020, 73951, %SBCULI, 6399 #### [facility] [place] [address] [place] [address] Primer Inspector: iFgueroa Jacques MDLeukocyte esterase Test strip Ql (U)TRACE AbnormalNEGATIVEQuest DiagnosticsComment on above:Performed By: #### 3020, 95147, %SBCULI, 6399 #### [facility] [place] [address] [place] , [address] [place] [address] Primer Inspector: Figueroa Jacques MDNitrite Ql (U)NegativeNormalNEGATIVEQuest DiagnosticsComment on above:Performed By: #### 3020, 18369, %SBCULI, 6399 #### [facility] [place] [address] Primer Inspector: Figueroa Jacques MDNOTENormalQuest DiagnosticsComment on above: Result Comment: This urine was analyzed for the presence of WBC, RBC, bacteria, casts, and other formed elements. Only those elements seen were reported.Performed By: #### 3020, 44908, %SBCULI, 6399 #### [facility] [place] [address] Primer Inspector: Figueroa Jacques MDOCCULT BLOODNegativeNormalNEGATIVEQuest DiagnosticsComment on above:Performed By: #### 3020, 31333, %SBCULI, 6399 #### [facility] [place] [address] Primer Inspector: Figueroa Jacques MDpH (U)5.5 [pH]Normal5.0-8.0[facility] Comment on above:Performed By: #### 3020, 59421, %SBCULI, 6399 #### [facility] [place] [address] Primer Inspector: Figueroa POWELLrotein Ql (U)3+AbnormalNEGATIVEQuest DiagnosticsComment on above:Performed By: #### 3020, 45082, %SBCUSUZIE, 6399 #### [facility] [place] [address] Primer Inspector: Figueroa Jacques MDRBCNONE SEENNormal< OR = 2[facility] Comment on above:Performed By: #### 3020, 00824, %SBCULI, 6399 #### [facility] [place] [address] Primer Inspector: Figueroa Jacques MDSpecific gravity (U) [Rel density]1.010Normal 1.001-1.035Quest DiagnosticsComment on above:Performed By: #### 3020, 22157, %SBCULI, 6399 #### [facility] [place] [address], [address] [place] [address] Primer Inspector: Figueroa Jacques MDSQUAMOUS EPITHELIAL CELLS0-5Normal< OR = 5 Quest DiagnosticsComment on above:Performed By: #### 3020, 08922, %SBCULI, 6399 #### [facility] [place] [address], [address] [place] [address] Primer Inspector: Figueroa Jacques MDWBC0-5Normal< OR = 5Quest DiagnosticsComment on above:Performed By: #### 3020, 01676, %SBCULI, 6399 #### [facility] of [address], [address] [place] [address] Primer Inspector: Figueroa Jacques MD30on 19-57-784865Wrl patient is Moderately Stable - Low risk of patient condition declining or worsening The patient's goals for the shift include rest The clinical goals for the shift include vssNormalUniversity of Carl R. Darnall Army Medical CenterBASIC METABOLIC PANELon 14-92-4129Pxypc gap [Moles/Vol]13 mmol/LNormal7-20 [facility]ittman HospitalComment on above:Performed By: #### [id number] ####[facility] ([facility])[address] [place], [place] [address]Qgzeirm [Mass/Vol]8.3 mg/dLLow8.6-10.3UnShelby Memorial HospitalComment on above:Performed By: #### [id number] ####[facility] ([facility])[address] [place], [place] [address]Beribgld [Moles/Vol]106 mmol/LYsaaaf68-875HmgtceowyqShelby Memorial HospitalComment on above:Performed By: #### [id number] ####[facility] ([facility])[address] [place], [place] [address]OM6 [Moles/Vol]21 mmol/LNormal 21-31UnShelby Memorial HospitalComment on above:Performed By: #### [id number] ####[facility] ([facility])[address] [place] [address]Mxoxyslcrn [Mass/Vol]3.69 mg/dLHigh0.60-1.20UnShelby Memorial HospitalComment on above:Performed By: #### [id number] ####[facility] ([facility])[address] [place] [address]ZUPMXHGWSE FILTRATION RATE ML/MIN/1.73 SQ M.JWCGNUBNB71.3 mL/min/1.73m*2Low>60.0UnShelby Memorial HospitalComment on above:Result Comment: [facility]???s estimated glomerular filtration rate (eGFR) will [...] anyone group of individuals.Performed By: #### [id number] ####[facility] ([facility])[address] [place] [address]Fgscwen [Mass/Vol]82 mg/aZImkznm80-904HeorzolnxuShelby Memorial HospitalComment on above:Performed By: #### [id number] ####[facility] ([facility])[address] [place] [address]Kgzbkbutg [Moles/Vol]5.1 mmol/LNormal3.5-5.1UnShelby Memorial HospitalComment on above:Performed By: #### [id number] ####[facility] ([facility])[address] [place] [address] Sodium [Moles/Vol]135 mmol/ODxn284-282VlkahtlallShelby Memorial HospitalComment on above:Performed By: #### [id number] ####[facility] ([facility])[address] [place] [address]Qxtk nitrogen [Mass/Vol]85 mg/dLHigh7-25UnShelby Memorial HospitalComment on above:Performed By: #### [id number] ####[facility] ([facility])[address] [place] [address]KQNU NITROGEN/CREATININE (MASS RATIO) IN SER/PLAS23.0NormalUniversAdams County Regional Medical CenterComment on above: Performed By: #### [id number] ####[facility] ([facility])[address] [place] [address]LCO WITH AUTO DIFFERENTIALon 13-90-0077Eqpizdwuizf distribution width (RBC) [Ratio]16.5 %High11.5-15.0UnShelby Memorial HospitalComment on above:Performed By: #### [id number] #### [facility] ([facility]) [address] [place] [address]JDSTHNFYLQA MEAN CORPUSCULAR HEMOGLOBIN CONCENTRATION (G/DL) BY ENEJVWXRP79.0 g/xRReqaud28.0-35.0UnShelby Memorial HospitalComment on above:Performed By: #### [id number] #### [facility] ([facility]) [address] [place] [address]Jwnbkrumqs (Bld) [Volume fraction]27.6 %Low36.0-45.0UnShelby Memorial HospitalComment on above:Performed By: #### [id number] #### [facility] ([facility]) [address] [place] [address]Glnbmyslxf (Bld) [Mass/Vol]9.1 g/dLLow12.0-15.0UnShelby Memorial HospitalComment on above:Performed By: #### [id number] #### [facility] ([facility]) [address] [place] [address]KFVNSVTK PLATELET FRACTION %5.6 %Normal0.8-6.3UnShelby Memorial HospitalComment on above:Performed By: #### [id number] #### [facility] ([facility]) [address] [place] [address]BGG (RBC) [Entitic mass]29.5 mdHwqjuf11.0-33.0UnShelby Memorial HospitalComment on above:Performed By: #### [id number] #### [facility] ([facility]) [address] [place] [address]FRC (RBC) [Entitic vol]89.6 kSVwsxmi36.0-98.0UnShelby Memorial HospitalComment on above:Performed By: #### [id number] #### [facility] ([facility]) [address] [facility] [place], [place] [address]TNNL (PER 100 WBCS) BY AUTOMATED COUNT0.0 %Ebkcqq5LnkhxwekvyShelby Memorial HospitalComment on above:Performed By: #### [id number] #### [facility] ([facility]) [address] [facility] [place], [place] [address]UHTGVAKOJ (10*3/UL) IN BLOOD AUTOMATED BFISC363 10*3/uLLow 150-400UnShelby Memorial HospitalComment on above:Performed By: #### [id number] #### [facility] ([facility]) [address] [place], [place] [address]SCL (Bld) [#/Vol]3.08 10*6/uLLow3.80-5.00UnShelby Memorial HospitalComment on above:Performed By: #### [id number] #### [facility] ([facility]) [address] [place], [place] [address]KNU (Bld) [#/Vol]4.82 10*3/uLNormal4.00-10.60UnShelby Memorial HospitalComment on above:Performed By: #### [id number] #### [facility] ([facility]) [address] [facility] [place], [place] [address]EUDUXK DIFFERENTIALon 06-02-9612FSQNKWFNA (10*3/UL) IN BLOOD BY CALCULATION0.04 10*3/uLNormal0.00-0.20UnShelby Memorial HospitalComment on above:Performed By: #### [id number] ####[facility] ([facility])[address] [place], [place] [address]UGDQDNGFY/100 LEUKOCYTES IN BLOOD BY AUTOMATED COUNT0.8 %Normal0.0-1.0[facility]-Rittman HospitalComment on above: Performed By: #### [id number] ####[facility] ([facility])[address] [place] [address]DLKFZIPQKXT (10*3/UL) IN BLOOD BY CALCULATION0.21 10*3/uL Normal0.00-0.50UnShelby Memorial HospitalComment on above:Performed By: #### [id number] ####[facility] ([facility])[address] [place] [address] EOSINOPHILS/100 LEUKOCYTES IN BLOOD BY AUTOMATED COUNT4.4 %Normal0.0-6.0 [facility]ittman HospitalComment on above:Performed By: #### [id number] ####[facility] ([facility])[address] [place] [address]XLGBANHT GRANULOCYTES (10*3/UL) IN BLOOD BY CALCULATION0.03 10*3/uLNormal0.00-0.20 [facility]ittman HospitalComment on above:Performed By: #### [id number] ####[facility] ([facility])[address] [place] [address]MUFKVIAB GRANULOCYTES/100 LEUKOCYTES IN BLOOD BY AUTOMATED COUNT0.6 %Normal0.0-1.0 [facility]ittman HospitalComment on above:Performed By: #### [id number] ####[facility] ([facility])[address] [place], [place] [address]THHPBIVVTSJ (10*3/UL) IN BLOOD BY CALCULATION1.64 10*3/uLNormal1.20-4.00UnShelby Memorial HospitalComment on above:Performed By: #### [id number] ####[facility] ([facility])[address] [place], [place] [address]KQKRQYAXFML/100 LEUKOCYTES IN BLOOD BY AUTOMATED COUNT34.0 %Dldbnt02.0-45.0[facility] Comment on above:Performed By: #### [id number] ####[facility] ([facility])[address] [place], [place] [address]QJMSGOJES (10*3/UL) IN BLOOD BY CALCUATION0.52 10*3/uLNormal0.10-1.00UnShelby Memorial HospitalComment on above: Performed By: #### [id number] ####[facility] ([facility])[address] [place], [place] [address]MHHTIYKME/100 LEUKOCYTES IN BLOOD BY AUTOMATED COUNT10.8 % Normal5.0-12.0UnShelby Memorial HospitalComment on above:Performed By: #### [id number] ####[facility] ([facility])[address] [place] [address] NEUTROPHILS (10*3/UL) IN BLOOD BY CALCULATION2.4 10*3/uLNormal1.6-7.6UnShelby Memorial HospitalComment on above:Performed By: #### [id number] ####[facility] ([facility])[address] [place], [place] [address]ZZONQNNMZQA/100 LEUKOCYTES IN BLOOD BY AUTOMATED COUNT49.4 %Sersux18.0-72.0UnShelby Memorial HospitalComment on above:Performed By: #### [id number] ####[facility] ([facility])[address] [place], [place] [address]nd 49-02-603597Nteidwt: Pain - Adult Goal: Verbalizes/displays adequate comfort [...] for the shift include stable vitalsNormalUniversity of Carl R. Darnall Army Medical CenterBASIC METABOLIC PANELon 30-60-5167Qnuqz gap [Moles/Vol]12 mmol/L Normal7-20UnShelby Memorial HospitalComment on above:Performed By: #### [id number] #### [facility] ([facility]) [address] [place] [address]Vfgibtz [Mass/Vol]8.4 mg/dLLow8.6-10.3UnShelby Memorial HospitalComment on above:Performed By: #### [id number] #### [facility] ([facility]) [address] [place] [place], [place] [address]Nijsggmx [Moles/Vol]107 mmol/HFaahuc33-933HaytkprbxuShelby Memorial HospitalComment on above:Performed By: #### [id number] #### [facility] ([facility]) [address] [place] [address]PE8 [Moles/Vol]22 mmol/NXrybmd20-23TlhghxjpkuShelby Memorial HospitalComment on above:Performed By: #### [id number] #### [facility] ([facility]) [address] [place], [place] [address]Uhpolxpmzq [Mass/Vol]3.88 mg/dLHigh0.60-1.20UnShelby Memorial HospitalComment on above:Performed By: #### [id number] #### [facility] ([facility]) [address] [place], [place] [address]WREPMBRTNN FILTRATION RATE ML/MIN/1.73 SQ M.NCYEHWEYC18.5 mL/min/1.73m*2Low>60.0UnShelby Memorial HospitalComment on above:Result Comment: [facility]???s estimated glomerular filtration rate (eGFR) will [...] group of individuals.Performed By: #### [id number] #### [facility] ([facility]) [address] [place] [address]Iojdqyt [Mass/Vol]88 mg/jCKtcodp41-305RoousnohwaShelby Memorial HospitalComment on above:Performed By: #### [id number] #### [facility] ([facility]) [address] [place] [address]Agpxibgic [Moles/Vol]5.0 mmol/LNormal3.5-5.1UnShelby Memorial HospitalComment on above:Performed By: #### [id number] #### [facility] ([facility]) [address] [place] [address]Meiexv [Moles/Vol]136 mmol/YCupodq560-905PuhvwvfczdShelby Memorial HospitalComment on above:Performed By: #### [id number] #### [facility] ([facility]) [address] [place] [address]Driy nitrogen [Mass/Vol]81 mg/dLHigh7-25UnShelby Memorial HospitalComment on above:Performed By: #### [id number] #### [facility] ([facility]) [address] [place] [address]EZJL NITROGEN/CREATININE (MASS RATIO) IN SER/PLAS20.9Normal [facility]Rittman HospitalComment on above:Performed By: #### [id number] #### [facility] ([facility]) [address] [place] [address]YIK WITH AUTO DIFFERENTIALon 20-52-3172Eerbyumua (Bld) [#/Vol] 0.04 10*3/uLNormal0.00-0.20UnShelby Memorial HospitalComment on above: Performed By: #### [id number] ####[facility] ([facility])[address] [facility] [place] [place] [address]Juwbcczok/100 WBC (Bld)0.7 %Normal0.0-1.0UnShelby Memorial HospitalComment on above:Performed By: #### [id number] ####[facility] ([facility])[address] [place], [place] [address]Sumgnjvdmlk (Bld) [#/Vol]0.24 10*3/uL Normal0.00-0.50UnShelby Memorial HospitalComment on above:Performed By: #### [id number] ####[facility] ([facility])[address] [place] [address] Eosinophils/100 WBC (Bld)4.4 %Normal0.0-6.0UnShelby Memorial Hospital Comment on above:Performed By: #### [id number] ####[facility] ([facility])[address] [place], [place] [address]Voydhraoqho distribution width (RBC) [Ratio]16.4 % High11.5-15.0UnShelby Memorial HospitalComment on above:Performed By: #### [id number] ####[facility] ([facility])[address] [place] [address] ERYTHROCYTE MEAN CORPUSCULAR HEMOGLOBIN CONCENTRATION (G/DL) BY GYGCJFNMC84.0 g/gQPgwyhf87.0-35.0UnShelby Memorial HospitalComment on above:Performed By: #### [id number] ####[facility] ([facility])[address] [place], [place] [address]Iaktmlosdy (Bld) [Volume fraction]28.8 %Low36.0-45.0UnShelby Memorial HospitalComment on above:Performed By: #### [id number] ####[facility] ([facility])[address] [place], [place] [address]Ndrbsopsst (Bld) [Mass/Vol]9.5 g/dLLow 12.0-15.0UnShelby Memorial HospitalComment on above:Performed By: #### [id number] ####[facility] ([facility])[address] [place], [place] [address]Omvmqexd granulocytes (Bld) [#/Vol]0.02 10*3/uLNormal0.00-0.20UnShelby Memorial HospitalComment on above:Performed By: #### [id number] ####[facility] ([facility])[address] [place] [address]Cbyiipnt granulocytes/100 WBC (Bld)0.4 %Normal0.0-1.0UnShelby Memorial HospitalComment on above:Performed By: #### [id number] ####[facility] ([facility])[address] [facility] [place] [address] Lymphocytes (Bld) [#/Vol]1.66 10*3/uLNormal1.20-4.00UnShelby Memorial HospitalComment on above:Performed By: #### [id number] ####[facility] ([facility])[address]ANGEISING[facility]Char[place], [place] [address]Rmwygwmwzlk/100 WBC (Bld)30.6 %Normal 20.0-45.0UnShelby Memorial HospitalComment on above:Performed By: #### [id number] ####[facility] ([facility])[address] [place], [place] [address]RJJ (RBC) [Entitic mass]29.1 ifIhgphk71.0-33.0UnShelby Memorial Hospital Comment on above:Performed By: #### [id number] ####[facility] ([facility])[address] [place], [place] [address]MWE (RBC) [Entitic vol]88.1 cDRlmejt91.0-98.0 [facility]ittman HospitalComment on above:Performed By: #### [id number] ####[facility] ([facility])[address]ANGEISING[facility], [place] [address]Lawlzjiel (Bld) [#/Vol]0.56 10*3/uLNormal0.10-1.00UnShelby Memorial HospitalComment on above:Performed By: #### [id number] ####[facility] ([facility])[address] [place], [place] [address]Qxmtchnix/100 WBC (Bld)10.3 %Normal5.0-12.0UnShelby Memorial HospitalComment on above:Performed By: #### [id number] ####[facility] ([facility])[address] [place] [address]Uklvqcorwwd (Bld) [#/Vol] 2.91 10*3/uLNormal1.60-7.60UnShelby Memorial HospitalComment on above: Performed By: #### [id number] ####[facility] ([facility])[address] [place] [address]Opwwrqmzpgn/100 WBC (Bld)53.6 %Ndqjsx80.0-72.0UnShelby Memorial HospitalComment on above:Performed By: #### [id number] ####[facility] ([facility])[address] [place] [address]ZHMG (PER 100 WBCS) BY AUTOMATED COUNT0.0 %Mkpwku9MugyyrosueShelby Memorial HospitalComment on above: Performed By: #### [id number] ####[facility] ([facility])[address] [place] [address]WRFIRWPDN (10*3/UL) IN BLOOD AUTOMATED [id number] 10*3/uLNormal 150-400UnShelby Memorial HospitalComment on above:Performed By: #### [id number] ####[facility] ([facility])[address] [place] [address]SBX (Bld) [#/Vol]3.27 10*6/uLLow3.80-5.00UnShelby Memorial HospitalComment on above:Performed By: #### [id number] ####[facility] ([facility])[address] [address]QVS (Bld) [#/Vol]5.43 10*3/uLNormal4.00-10.60UnShelby Memorial HospitalComment on above:Performed By: #### [id number] ####[facility] ([facility])[address] [place] [address]ECWOUHMLMP WITH MICROSCOPICon 21-03-3949SDCLUEOOE, TOTAL PRESENCE IN URINENegativeNormalNegative [facility]-Rittman HospitalComment on above:Performed By: #### [id number] #### [facility] ([facility]) [address] [place], [place] [address]Uinzgyh (U)ClearNormalClearWadsworth-Rittman Hospital Comment on above:Performed By: #### [id number] #### [facility] ([facility]) [address] [place], [place] [address]Muvyu (U)Light-YellowNormalColorless, Yellow, Light-Yellow [facility]Rittman HospitalComment on above:Performed By: #### [id number] #### [facility] ([facility]) [address] [place], [place] [address]EOFTVSL (MG/DL) IN URINENormalNormalNormalUniversAdams County Regional Medical CenterComment on above:Performed By: #### [id number] #### [facility] ([facility]) [address] [place], [place] [address]KVWLKCCWQI PRESENCE IN URINENegativeNormalNegativeUnShelby Memorial HospitalComment on above:Performed By: #### [id number] #### [facility] ([facility]) [address] [place], [place] [address]Qzijifg Ql (U)NegativeNormalNegativeWadsworth-Rittman HospitalComment on above:Performed By: #### [id number] #### [facility] ([facility]) [address] [place], [place] [address]DCVTFGYWF ESTERASE PRESENCE IN URINE BY TEST STRIPNegativeNormal NegativeUnShelby Memorial HospitalComment on above:Performed By: #### [id number] #### [facility] ([facility]) [address] [place], [place] [address]OGSGKHI PRESENCE IN URINENegativeNormalNegativeUnShelby Memorial HospitalComment on above:Performed By: #### [id number] #### [facility] ([facility]) [address] [place], [place] [address]sP (U)6.0 [pH]Normal5.0-8.0UnShelby Memorial Hospital Comment on above:Performed By: #### [id number] #### [facility] ([facility]) [address] [place] [address]Hzjjgib (U) [Mass/Vol]30 mg/dLAbnormalNegativeUnShelby Memorial HospitalComment on above:Performed By: #### [id number] #### [facility] ([facility]) [address] [place] [address]AEW (#/HPF) IN URINE SEDIMENT0-2NormalNone Seen, 0-2UnShelby Memorial HospitalComment on above:Performed By: #### [id number] #### [facility] ([facility]) [address] [place] [address]Kfdkubfk gravity (U) [Rel density]1.280Gaofmk4.010-1.030 [facility]ittman HospitalComment on above:Performed By: #### [id number] #### [facility] ([facility]) [address] [place] [address]GVHADNFW EPITHELIAL CELLS (#/LPF) IN URINE SEDIMENTOccasional NormalNone Seen, Occasional, FewUnShelby Memorial HospitalComment on above:Performed By: #### [id number] #### [facility] ([facility]) [address] [place] [address]TRCIMXTZGHPS (MG/DL) IN URINENormalNormalNormalUniversAdams County Regional Medical CenterComment on above:Performed By: #### [id number] #### [facility] ([facility]) [address] [place] [address]HZK (LEUKOCYTE) (#/HPF) IN URINE SEDIMENT0-2NormalNone Seen, 0-2 [facility]ittman HospitalComment on above:Performed By: #### [id number] #### [facility] [facility] ([facility]) [address] [place] [address]pp [id number] patient is Moderately Stable - Low risk [...] transferring and ambulating with or without assistive devicesNormalUniversAdams County Regional Medical CenterBASIC METABOLIC PANEL on 92-22-8925Ranle gap [Moles/Vol]12 mmol/LNormal7-20UnShelby Memorial HospitalComment on above:Performed By: #### [id number] #### [facility] ([facility]) [address] [place], [place] [address]Zimmxlg [Mass/Vol]8.7 mg/dLNormal8.6-10.3UnShelby Memorial HospitalComment on above:Performed By: #### [id number] #### [facility] ([facility]) [address] [place], [place] [address]Kdkfvoxs [Moles/Vol]106 mmol/BYoatwz90-765TmmjpibxecShelby Memorial HospitalComment on above:Performed By: #### [id number] #### [facility] ([facility]) [address] [place], [place] [address]TG2 [Moles/Vol]22 mmol/XIxjsld53-40FsrhmppkdmShelby Memorial HospitalComment on above:Performed By: #### [id number] #### [facility] ([facility]) [address] [place], [place] [address]Vczyzhqevc [Mass/Vol]3.69 mg/dLHigh0.60-1.20UnShelby Memorial HospitalComment on above:Performed By: #### [id number] #### [facility] ([facility]) [address] [place] [address]KVFLODOONP FILTRATION RATE ML/MIN/1.73 SQ M.TJJBXOXNO60.3 mL/min/1.73m*2Low>60.0UnShelby Memorial HospitalComment on above:Result Comment: [facility]???s estimated glomerular filtration rate (eGFR) will [...] affect anyone group of individuals.Performed By: #### [id number] #### [facility] ([facility]) [address] [place], [place] [address]Mighmdm [Mass/Vol]85 mg/oEAmbhwv50-669GzejjezutsShelby Memorial HospitalComment on above:Performed By: #### [id number] #### [facility] ([facility]) [address] [place] [address]Mzficugqt [Moles/Vol]5.1 mmol/LNormal3.5-5.1UnShelby Memorial HospitalComment on above:Performed By: #### [id number] #### [facility] ([facility]) [address] [place] [address]Tbjatr [Moles/Vol]135 mmol/ZEtp455-965GlqypwpepsShelby Memorial HospitalComment on above:Performed By: #### [id number] #### [facility] ([facility]) [address] [place], [place] [address]Lcfw nitrogen [Mass/Vol]68 mg/dLHigh7-25UnShelby Memorial HospitalComment on above:Performed By: #### [id number] #### [facility] ([facility]) [address] [place], [place] [address]XWJB NITROGEN/CREATININE (MASS RATIO) IN SER/PLAS18.4Normal [facility]ittman HospitalComment on above:Performed By: #### [id number] #### [facility] ([facility]) [address] [facility] [place], [place] [address]RHS WITH AUTO DIFFERENTIALon 52-61-3176Ivkytyjxq (Bld) [#/Vol] 0.04 10*3/uLNormal0.00-0.20UnShelby Memorial HospitalComment on above: Performed By: #### [id number] #### [facility] ([facility]) [address] [place], [place] [address]Jwchhrbnr/100 WBC (Bld)0.7 %Normal0.0-1.0UnShelby Memorial HospitalComment on above:Performed By: #### [id number] #### [facility] ([facility]) [address] [place], [place] [address]Horcmvvxbdu (Bld) [#/Vol]0.27 10*3/uLNormal0.00-0.50UnShelby Memorial HospitalComment on above:Performed By: #### [id number] #### [facility] ([facility]) [address] [place], [place] [address]Dksrkhckylg/100 WBC (Bld)4.9 %Normal0.0-6.0UnShelby Memorial HospitalComment on above:Performed By: #### [id number] #### [facility] ([facility]) [address] [place], [place] [address]Zepgyefgvnk distribution width (RBC) [Ratio]16.4 %High11.5-15.0 [facility]ittman HospitalComment on above:Performed By: #### [id number] #### [facility] ([facility]) [address] [place], [place] [address]IBMKGWAKVUM MEAN CORPUSCULAR HEMOGLOBIN CONCENTRATION (G/DL) BY UAYXXIFCA10.5 g/wCDcgroh17.0-35.0UnShelby Memorial HospitalComment on above:Performed By: #### [id number] #### [facility] ([facility]) [address] [place], [place] [address]Dcrjqdifwk (Bld) [Volume fraction]29.5 %Low36.0-45.0UnShelby Memorial HospitalComment on above:Performed By: #### [id number] #### [facility] ([facility]) [address] [facility] [place], [place] [address]Oyqcytneyl (Bld) [Mass/Vol]9.6 g/dLLow12.0-15.0UnShelby Memorial HospitalComment on above:Performed By: #### [id number] #### [facility] ([facility]) [address] [place], [place] [address]Hkeyvbys granulocytes (Bld) [#/Vol]0.02 10*3/uLNormal0.00-0.20 [facility]man HospitalComment on above:Performed By: #### [id number] #### [facility] ([facility]) [address] [place], [place] [address]Gvbmydol granulocytes/100 WBC (Bld)0.4 %Normal0.0-1.0UnShelby Memorial HospitalComment on above:Performed By: #### [id number] #### [facility] ([facility]) [address] [place], [place] [address]Wdauxbbgzev (Bld) [#/Vol]1.76 10*3/uLNormal1.20-4.00UnShelby Memorial HospitalComment on above:Performed By: #### [id number] #### [facility] ([facility]) [address] [place], [place] [address]Dzayjecimyg/100 WBC (Bld)32.1 %Uzfegu33.0-45.0UnShelby Memorial HospitalComment on above:Performed By: #### [id number] #### [facility] ([facility]) [address] [place], [place] [address]WAM (RBC) [Entitic mass]29.3 crKuucbx03.0-33.0UnShelby Memorial HospitalComment on above:Performed By: #### [id number] #### [facility] ([facility]) [address] [place] [place], [place] [address]OBF (RBC) [Entitic vol]89.9 aVQyhbwe93.0-98.0UnShelby Memorial HospitalComment on above:Performed By: #### [id number] #### [facility] ([facility]) [address] [facility] [place] [address]Xytozrbsf (Bld) [#/Vol]0.54 10*3/uLNormal0.10-1.00UnShelby Memorial HospitalComment on above:Performed By: #### [id number] #### [facility] ([facility]) [address] [facility] [place], [place] [address]Gjerznwaf/100 WBC (Bld)9.8 %Normal5.0-12.0UnShelby Memorial HospitalComment on above:Performed By: #### [id number] #### [facility] ([facility]) [address] [facility] [place], [place] [address]Ylelftkjwwe (Bld) [#/Vol]2.86 10*3/uLNormal1.60-7.60UnShelby Memorial HospitalComment on above:Performed By: #### [id number] #### [facility] ([facility]) [address], [place] [address]Yehnljryfix/100 WBC (Bld)52.1 %Aprseu76.0-72.0UnShelby Memorial HospitalComment on above:Performed By: #### [id number] #### [facility] ([facility]) [address] [facility] [place], [place] [address]KBPQ (PER 100 WBCS) BY AUTOMATED COUNT0.0 %Lqnaab7JlwobdytjvShelby Memorial HospitalComment on above:Performed By: #### [id number] #### [facility] ([facility]) [address] [facility] [place], [place] [address]NXEJFHYEF (10*3/UL) IN BLOOD AUTOMATED [id number] 10*3/uLNormal 150-400UnShelby Memorial HospitalComment on above:Performed By: #### [id number] #### [facility] ([facility]) [address] [place] [address]ATY (Bld) [#/Vol]3.28 10*6/uLLow3.80-5.00UnShelby Memorial HospitalComment on above:Performed By: #### [id number] #### [facility] ([facility]) [address] [place] [address]UJN (Bld) [#/Vol]5.49 10*3/uLNormal4.00-10.60UnShelby Memorial HospitalComment on above:Performed By: #### [id number] #### [facility] ([facility]) [address] [place], [place] [address]BZML GLUCOSE METER UNSOLICITED RESULTSon 11-57-6515Sdsvqaw [Mass/Vol]116 mg/uIYozj32-403QfqqdzymcwShelby Memorial HospitalComment on above:Order Comment: Waived Testing in the ED is performed under the ED CLIA certificate #[id number].Result Comment: [email or web address] By: #### [id number] ####[facility] ([facility])[address] [place], [place] [address]Dvtzdbo [Mass/Vol]130 mg/yVGhdm62-756FimzptwhynShelby Memorial HospitalComment on above:Order Comment: Waived Testing in the ED is performed under the ED CLIA certificate #[id number].Result Comment: [email or web address] By: #### [id number] #### [facility] ([facility]) [address] [place], [place] [address]Nyodoet [Mass/Vol]114 mg/dLJird35-630GddjorxbdiShelby Memorial HospitalComment on above:Order Comment: Waived Testing in the ED is performed under the ED CLIA certificate #[id number].Result Comment: [email or web address] Performed By: #### [id number] ####[facility] ([facility])[address] [place], [place] [address]kr 99-40-656737Jkg patient is Moderately Stable - Low risk of patient condition declining or worsening The patient's goals for the shift include Comfort, rest The clinical goals for the shift include Stable vitals and labs, comfort, rest, safetyNormalUniversAdams County Regional Medical CenterBASIC METABOLIC PANELon 81-47-2627Qnyek gap [Moles/Vol]11 mmol/LNormal7-20UnShelby Memorial HospitalComment on above:Performed By: #### [id number] #### [facility] ([facility]) [address] [place] [address]Wqpxhmq [Mass/Vol]8.6 mg/dLNormal8.6-10.3UnShelby Memorial HospitalComment on above:Performed By: #### [id number] #### [facility] ([facility]) [address] [place] [address]Wtcipqcx [Moles/Vol]106 mmol/WPdavga43-506FlaafzpncrShelby Memorial HospitalComment on above:Performed By: #### [id number] #### [facility] ([facility]) [address] [place] [address]FE7 [Moles/Vol]23 mmol/GRzirqo85-82GfsunikcyyShelby Memorial HospitalComment on above:Performed By: #### [id number] #### [facility] ([facility]) [address] [place], [place] [address]Iuhynyyyfp [Mass/Vol]3.61 mg/dLHigh0.60-1.20UnShelby Memorial HospitalComment on above:Performed By: #### [id number] #### [facility] ([facility]) [address] [place] [address]UFZCUPCNPY FILTRATION RATE ML/MIN/1.73 SQ M.PZACVXICM50.6 mL/min/1.73m*2Low>60.0UnShelby Memorial HospitalComment on above:Result Comment: [facility]???s estimated glomerular filtration rate (eGFR) will [...] group of individuals.Performed By: #### [id number] #### [facility] ([facility]) [address] [place], [place] [address]Adorazm [Mass/Vol]91 mg/eKUmgjaq63-684RnrwzluyohShelby Memorial HospitalComment on above:Performed By: #### [id number] #### [facility] ([facility]) [address] [place], [place] [address]Kaewlqlab [Moles/Vol]5.0 mmol/LNormal3.5-5.1UnShelby Memorial HospitalComment on above:Performed By: #### [id number] #### [facility] ([facility]) [address] [place] [address]Ouslcj [Moles/Vol]135 mmol/BIxj212-180UmgrpqxzuyShelby Memorial HospitalComment on above:Performed By: #### [id number] #### [facility] ([facility]) [address] [place], [place] [address]Hhhk nitrogen [Mass/Vol]61 mg/dLHigh7-25UnShelby Memorial HospitalComment on above:Performed By: #### [id number] #### [facility] ([facility]) [address] [place], [place] [address]PXKQ NITROGEN/CREATININE (MASS RATIO) IN SER/PLAS16.9Normal [facility] HospitalComment on above:Performed By: #### [id number] #### [facility] ([facility]) [address] [place], [place] [address]LVB WITH AUTO DIFFERENTIALon 74-86-9368Vhszphkqt (Bld) [#/Vol] 0.02 10*3/uLNormal0.00-0.20UnShelby Memorial HospitalComment on above: Performed By: #### [id number] ####[facility] ([facility])[address] [place], [place] [address]Yuijpwqbs/100 WBC (Bld)0.3 %Normal0.0-1.0UnShelby Memorial HospitalComment on above:Performed By: #### [id number] ####[facility] ([facility])[address] [place], [place] [address]Rulfpszivfq (Bld) [#/Vol]0.21 10*3/uL Normal0.00-0.50UnShelby Memorial HospitalComment on above:Performed By: #### [id number] ####[facility] ([facility])[address] [place] [address] Eosinophils/100 WBC (Bld)3.3 %Normal0.0-6.0UnShelby Memorial Hospital Comment on above:Performed By: #### [id number] ####[facility] ([facility])[address] [place], [place] [address]Xgbhnwgdgdd distribution width (RBC) [Ratio]16.3 % High11.5-15.0UnShelby Memorial HospitalComment on above:Performed By: #### [id number] ####[facility] ([facility])[address] [place] [address] ERYTHROCYTE MEAN CORPUSCULAR HEMOGLOBIN CONCENTRATION (G/DL) BY WDDTDKQXZ62.0 g/tXCrnned13.0-35.0UnShelby Memorial HospitalComment on above:Performed By: #### [id number] ####[facility] ([facility])[address] [place], [place] [address]Sxgvaaibki (Bld) [Volume fraction]29.7 %Low36.0-45.0UnShelby Memorial HospitalComment on above:Performed By: #### [id number] ####[facility] ([facility])[address] [place], [place] [address]Lcvpjmhvpe (Bld) [Mass/Vol]9.8 g/dLLow 12.0-15.0UnShelby Memorial HospitalComment on above:Performed By: #### [id number] ####[facility] ([facility])[address] [place], [place] [address]Frqmflhc granulocytes (Bld) [#/Vol]0.02 10*3/uLNormal0.00-0.20UnShelby Memorial HospitalComment on above:Performed By: #### [id number] ####[facility] ([facility])[address] [place] [address]Kjrfleta granulocytes/100 WBC (Bld)0.3 %Normal0.0-1.0UnShelby Memorial HospitalComment on above:Performed By: #### [id number] ####[facility] ([facility])[address] [facility] [address] Lymphocytes (Bld) [#/Vol]1.61 10*3/uLNormal1.20-4.00UnShelby Memorial HospitalComment on above:Performed By: #### [id number] ####[facility] ([facility])[address] [place], [place] [address]Lwpjvfpjpvb/100 WBC (Bld)25.6 %Normal 20.0-45.0UnShelby Memorial HospitalComment on above:Performed By: #### [id number] ####[facility] ([facility])[address] [place], [place] [address]RRF (RBC) [Entitic mass]29.3 ucEgauxu26.0-33.0UnShelby Memorial Hospital Comment on above:Performed By: #### [id number] ####[facility] ([facility])[address] [place], [place] [address]SBN (RBC) [Entitic vol]88.7 mDHnoler65.0-98.0 [facility] HospitalComment on above:Performed By: #### [id number] ####[facility] ([facility])[address] [place], [place] [address]Ftcmiajkw (Bld) [#/Vol]0.58 10*3/uLNormal0.10-1.00UnShelby Memorial HospitalComment on above:Performed By: #### [id number] ####[facility] ([facility])[address] [facility], [place] [address]Palnqwszy/100 WBC (Bld)9.2 %Normal5.0-12.0UnShelby Memorial HospitalComment on above:Performed By: #### [id number] ####[facility] ([facility])[address] [place] [address]Oywnrseimso (Bld) [#/Vol] 3.85 10*3/uLNormal1.60-7.60UnShelby Memorial HospitalComment on above: Performed By: #### [id number] ####[facility] ([facility])[address] [place] [address]Nzljtetbfsv/100 WBC (Bld)61.3 %Gdqhid15.0-72.0UnShelby Memorial HospitalComment on above:Performed By: #### [id number] ####[facility] ([facility])[address] [place] [address]SMVY (PER 100 WBCS) BY AUTOMATED COUNT0.0 %Whqzxb6VxjcvqflghShelby Memorial HospitalComment on above: Performed By: #### [id number] ####[facility] ([facility])[address] [place], [place] [address]HXVILISIY (10*3/UL) IN BLOOD AUTOMATED [id number] 10*3/uLNormal 150-400UnShelby Memorial HospitalComment on above:Performed By: #### [id number] ####[facility] ([facility])[address] [place], [place] [address]VJG (Bld) [#/Vol]3.35 10*6/uLLow3.80-5.00UnShelby Memorial HospitalComment on above:Performed By: #### [id number] ####[facility] ([facility])[address] [place], [place] [address]XGT (Bld) [#/Vol]6.29 10*3/uLNormal4.00-10.60UnShelby Memorial HospitalComment on above:Performed By: #### [id number] ####[facility] ([facility])[address] [place], [place] [address]XXLPUOSoq 03-17-2025 CONSULTdischarge planning: to Home with Home [...] mass referral for C; referrals sent via [employer] system - Patient agreeable to reviewing printed listing of HHC providers so can provide Agency of Choice once accepting HHC providers found discharge barriers: [] need HHC choices, then accepting [] will need insurance precert for any placement from this admission [] NormalUnShelby Memorial HospitalPOCT GLUCOSE METER UNSOLICITED RESULTSon 07-57-1066Qphudzb [Mass/Vol]121 mg/bGIqli61-406UfuvjbmyxuWadsworth-Rittman HospitalComment on above:Order Comment: Waived Testing in the ED is performed under the ED CLIA certificate #[id number].Result Comment: [email or web address] Performed By: #### [id number] #### [facility] ([facility]) [address] [place], [place] [address]Itkvops [Mass/Vol]148 mg/vZJzry32-134OwjxtoxkriShelby Memorial HospitalComment on above:Order Comment: Waived Testing in the ED is performed under the ED CLIA certificate #[id number].Result Comment: [email or web address] Performed By: #### [id number] #### [facility] ([facility]) [address] [place], [place] [address]Pgfusze [Mass/Vol]161 mg/mIHmjm14-879HmvxlqrxbsShelby Memorial HospitalComment on above:Order Comment: Waived Testing in the ED is performed under the ED CLIA certificate #[id number].Result Comment: [email or web address] Performed By: #### [id number] #### [facility] ([facility]) [address] [place], [place] [address]KTIFM METABOLIC PANELon 63-61-5379Wslpb gap [Moles/Vol]10 mmol/L Normal7-20UnShelby Memorial HospitalComment on above:Performed By: #### [id number] ####[facility] ([facility])[address] [place] [address]Tytmvnp [Mass/Vol]8.6 mg/dLNormal8.6-10.3UnShelby Memorial HospitalComment on above:Performed By: #### [id number] ####[facility] ([facility])[address] [place] [address]Oisensmq [Moles/Vol]106 mmol/TGvfffo95-697TdpcajsvimShelby Memorial HospitalComment on above:Performed By: #### [id number] ####[facility] ([facility])[address] [place] [address]JN6 [Moles/Vol]23 mmol/LNormal 21-31UnShelby Memorial HospitalComment on above:Performed By: #### [id number] ####[facility] ([facility])[address] [place] [address]Nmvxqziyha [Mass/Vol]3.39 mg/dLHigh0.60-1.20UnShelby Memorial HospitalComment on above:Performed By: #### [id number] ####[facility] ([facility])[address] [place] [address]KIIUOMBYID FILTRATION RATE ML/MIN/1.73 SQ M.BODUBAPGT21.6 mL/min/1.73m*2Low>60.0UnShelby Memorial HospitalComment on above:Result Comment: [facility]???s estimated glomerular filtration rate (eGFR) will [...] anyone group of individuals.Performed By: #### [id number] ####[facility] ([facility])[address] [place] [address]Uaekzud [Mass/Vol]101 mg/bHGgbp07-566QstrrylelwShelby Memorial HospitalComment on above:Performed By: #### [id number] ####[facility] ([facility])[address] [place] [address]Nmzgvzruc [Moles/Vol]4.5 mmol/L Normal3.5-5.1UnShelby Memorial HospitalComment on above:Performed By: #### [id number] ####[facility] ([facility])[address] [place] [address] Sodium [Moles/Vol]134 mmol/FXcy373-072XyaomnxsxiShelby Memorial HospitalComment on above:Performed By: #### [id number] ####[facility] ([facility])[address] [place] [address]Tlki nitrogen [Mass/Vol]53 mg/dLHigh7-25UnShelby Memorial HospitalComment on above:Performed By: #### [id number] ####[facility] ([facility])[address] [place], [place] [address]ONTF NITROGEN/CREATININE (MASS RATIO) IN SER/PLAS15.6NormalUniversAdams County Regional Medical CenterComment on above: Performed By: #### [id number] ####[facility] ([facility])[address] [place] [address]CZD WITH AUTO DIFFERENTIALon 27-46-8985Ksjcmqqvx (Bld) [#/Vol]0.03 10*3/uLNormal0.00-0.20UnShelby Memorial HospitalComment on above: Performed By: #### [id number] #### [facility] ([facility]) [address] [place] [address]Dvclffvig/100 WBC (Bld)0.6 %Normal0.0-1.0UnShelby Memorial HospitalComment on above:Performed By: #### [id number] #### [facility] ([facility]) [address] [place] [address]Sjmhuzpooju (Bld) [#/Vol]0.21 10*3/uLNormal0.00-0.50UnShelby Memorial HospitalComment on above:Performed By: #### [id number] #### [facility] ([facility]) [address] [place] [address]Aomtvrmdekq/100 WBC (Bld)4.0 %Normal0.0-6.0UnShelby Memorial HospitalComment on above:Performed By: #### [id number] #### [facility] ([facility]) [address] [place], [place] [address]Igvsrdtcqns distribution width (RBC) [Ratio]16.3 %High11.5-15.0 [facility]itt[facility] HospitalComment on above:Performed By: #### [id number] #### [facility] ([facility]) [address] [place] [place], [place] [address]VAAPEWQQIWE MEAN CORPUSCULAR HEMOGLOBIN CONCENTRATION (G/DL) BY HEWDKCCED88.9 g/dUGbwpff27.0-35.0UnShelby Memorial HospitalComment on above:Performed By: #### [id number] #### [facility] ([facility]) [address] [place] [place], [place] [address]Gggrztpdge (Bld) [Volume fraction]31.6 %Low36.0-45.0UnShelby Memorial HospitalComment on above:Performed By: #### [id number] #### [facility] ([facility]) [address] [place], [place] [address]Ufjauasyau (Bld) [Mass/Vol]10.4 g/dLLow12.0-15.0UnShelby Memorial HospitalComment on above:Performed By: #### [id number] #### [facility] ([facility]) [address] [place] [place], [place] [address]Mjzqdkbl granulocytes (Bld) [#/Vol]0.01 10*3/uLNormal0.00-0.20 [facility] HospitalComment on above:Performed By: #### [id number] #### [facility] ([facility]) [address] [facility] [place] [address]Qvvapgkp granulocytes/100 WBC (Bld)0.2 %Normal0.0-1.0UnShelby Memorial HospitalComment on above:Performed By: #### [id number] #### [facility] ([facility]) [address] [place] [address]Svlysaynnnf (Bld) [#/Vol]1.52 10*3/uLNormal1.20-4.00UnShelby Memorial HospitalComment on above:Performed By: #### [id number] #### [facility] ([facility]) [address] [place] [address]Pxtrbypgadn/100 WBC (Bld)28.8 %Xherrd28.0-45.0UnShelby Memorial HospitalComment on above:Performed By: #### [id number] #### [facility] ([facility]) [address] [place], [place] [address]REK (RBC) [Entitic mass]29.5 fjGbuxak95.0-33.0UnShelby Memorial HospitalComment on above:Performed By: #### [id number] #### [facility] ([facility]) [address] [place] [address]ZHA (RBC) [Entitic vol]89.5 dVQaualg32.0-98.0UnShelby Memorial HospitalComment on above:Performed By: #### [id number] #### [facility] ([facility]) [address] [place], [place] [address]Lklkdzfpd (Bld) [#/Vol]0.53 10*3/uLNormal0.10-1.00UnShelby Memorial HospitalComment on above:Performed By: #### [id number] #### [facility] ([facility]) [address] [place], [place] [address]Jaqcqfaus/100 WBC (Bld)10.0 %Normal5.0-12.0UnShelby Memorial HospitalComment on above:Performed By: #### [id number] #### [facility] ([facility]) [address] [place] [address]Ohopctdetpr (Bld) [#/Vol]2.98 10*3/uLNormal1.60-7.60UnShelby Memorial HospitalComment on above:Performed By: #### [id number] #### [facility] ([facility]) [address] [address]Hoesdegsfzs/100 WBC (Bld)56.4 %Ipyrtk63.0-72.0UnShelby Memorial HospitalComment on above:Performed By: #### [id number] #### [facility] ([facility]) [address] [place] [address]WQME (PER 100 WBCS) BY AUTOMATED COUNT0.0 %Uwmmnw3NyjoeyxegfShelby Memorial HospitalComment on above:Performed By: #### [id number] #### [facility] ([facility]) [address] [address] [place] [address]VNQUWFZDO (10*3/UL) IN BLOOD AUTOMATED [id number] 10*3/uLNormal 150-400UnShelby Memorial HospitalComment on above:Performed By: #### [id number] #### [facility] ([facility]) [address] [place] [address]FAO (Bld) [#/Vol]3.53 10*6/uLLow3.80-5.00UnShelby Memorial HospitalComment on above:Performed By: #### [id number] #### [facility] ([facility]) [address] [place] [address]VCG (Bld) [#/Vol]5.28 10*3/uLNormal4.00-10.60UnShelby Memorial HospitalComment on above:Performed By: #### [id number] #### [facility] ([facility]) [address] [place] [address]HPCF GLUCOSE METER UNSOLICITED RESULTSon 42-57-7273Csayxio [Mass/Vol]102 mg/pFZqggfh68-264CzuircfpddShelby Memorial HospitalComment on above:Order Comment: Waived Testing in the ED is performed under the ED CLIA certificate #[id number].Result Comment: [id number] By: #### [id number] ####[facility] ([facility])[address] [place], [place] [address]Fxyvcon [Mass/Vol]95 mg/lQUwhwcb51-187GdccfrfdsuShelby Memorial HospitalComment on above:Order Comment: Waived Testing in the ED is performed under the ED CLIA certificate #[id number].Result Comment: astonekingPerformed By: #### [id number] #### [facility] ([facility]) [address] [place], [place] [address]Jzbaxtf [Mass/Vol]130 mg/mRCkas56-163RifarzmellShelby Memorial HospitalComment on above:Order Comment: Waived Testing in the ED is performed under the ED CLIA certificate #[id number].Result Comment: astoneking Performed By: #### [id number] ####[facility] ([facility])[address] [place], [place] [address]Sjhhhjq [Mass/Vol]102 mg/vGTkwwdu22-711HkdmrptbcqShelby Memorial HospitalComment on above:Order Comment: Waived Testing in the ED is performed under the ED CLIA certificate #[id number].Result Comment: astoneking Performed By: #### [id number] ####[facility] ([facility])[address] [place], [place] [address]ZRIQL METABOLIC PANELon 06-54-1126Zccey gap [Moles/Vol]10 mmol/LNormal7-20UnShelby Memorial HospitalComment on above:Performed By: #### [id number] #### [facility] ([facility]) [address] [place], [place] [address]Pffqfjm [Mass/Vol]8.9 mg/dLNormal8.6-10.3UnShelby Memorial HospitalComment on above:Performed By: #### [id number] #### [facility] ([facility]) [address] [place], [place] [address]Tzmbsuoe [Moles/Vol]104 mmol/JLbtswq35-694SfnkrykhjeShelby Memorial HospitalComment on above:Performed By: #### [id number] #### [facility] ([facility]) [address] [place] [address]HX2 [Moles/Vol]24 mmol/GEbfsro12-63KpuvnzxxjdShelby Memorial HospitalComment on above:Performed By: #### [id number] #### [facility] ([facility]) [address] [place] [address]Naampgwxgk [Mass/Vol]3.21 mg/dLHigh0.60-1.20UnShelby Memorial HospitalComment on above:Performed By: #### [id number] #### [facility] ([facility]) [address] [place] [address]ROTZMXWUYW FILTRATION RATE ML/MIN/1.73 SQ M.VSRUKFTSD82.5 mL/min/1.73m*2Low>60.0UnShelby Memorial HospitalComment on above:Result Comment: [facility]???s estimated glomerular filtration rate (eGFR) will [...] group of individuals.Performed By: #### [id number] #### [facility] ([facility]) [address] [place] [address]Xguzlpr [Mass/Vol]103 mg/wWFetl78-276CnustuzlzmShelby Memorial HospitalComment on above:Performed By: #### [id number] #### [facility] ([facility]) [address] [place] [address]Hamgclina [Moles/Vol]4.7 mmol/LNormal3.5-5.1UnShelby Memorial HospitalComment on above:Performed By: #### [id number] #### [facility] ([facility]) [address] [place], [place] [address]Xedyjq [Moles/Vol]133 mmol/DLhz649-559CnndacpxcjShelby Memorial HospitalComment on above:Performed By: #### [id number] #### [facility] ([facility]) [address] [place] [place], [place] [address]Wlpx nitrogen [Mass/Vol]45 mg/dLHigh7-25UnShelby Memorial HospitalComment on above:Performed By: #### [id number] #### [facility] ([facility]) [address] [place], [place] [address]DVQM NITROGEN/CREATININE (MASS RATIO) IN SER/PLAS14.0Normal [facility]ittman HospitalComment on above:Performed By: #### [id number] #### [facility] ([facility]) [address] [facility] [place], [place] [address]JSX WITH AUTO DIFFERENTIALon 39-51-4691Oxdlgxtbd (Bld) [#/Vol] 0.05 10*3/uLNormal0.00-0.20UnShelby Memorial HospitalComment on above: Performed By: #### [id number] #### [facility] ([facility]) [address] [place], [place] [address]Gbvodvioj/100 WBC (Bld)0.8 %Normal0.0-1.0UnShelby Memorial HospitalComment on above:Performed By: #### [id number] #### [facility] ([facility]) [address] [place] [address]Ennvgmtjkrt (Bld) [#/Vol]0.26 10*3/uLNormal0.00-0.50UnShelby Memorial HospitalComment on above:Performed By: #### [id number] #### [facility] ([facility]) [address] [place] [address]Cgoyrwttffp/100 WBC (Bld)4.1 %Normal0.0-6.0UnShelby Memorial HospitalComment on above:Performed By: #### [id number] #### [facility] ([facility]) [address] [facility] [place] [address]Fgtacyhnaqb distribution width (RBC) [Ratio]16.1 %High11.5-15.0 [facility]man HospitalComment on above:Performed By: #### [id number] #### [facility] ([facility]) [address] [place] [address]HKQAXGAZRUG MEAN CORPUSCULAR HEMOGLOBIN CONCENTRATION (G/DL) BY JWPZSVDEE32.8 g/iGKzlqxp28.0-35.0UnShelby Memorial HospitalComment on above:Performed By: #### [id number] #### [facility] ([facility]) [address] [place] [address]Aezdbonkvn (Bld) [Volume fraction]34.5 %Low36.0-45.0UnShelby Memorial HospitalComment on above:Performed By: #### [id number] #### [facility] ([facility]) [address] [place], [place] [address]Ygbpxbfpyb (Bld) [Mass/Vol]11.3 g/dLLow12.0-15.0UnShelby Memorial HospitalComment on above:Performed By: #### [id number] #### [facility] ([facility]) [address] [place], [place] [address]Aimecfcr granulocytes (Bld) [#/Vol]0.02 10*3/uLNormal0.00-0.20 [facility] HospitalComment on above:Performed By: #### [id number] #### [facility] ([facility]) [address] [place], [place] [address]Fcqokdav granulocytes/100 WBC (Bld)0.3 %Normal0.0-1.0UnShelby Memorial HospitalComment on above:Performed By: #### [id number] #### [facility] ([facility]) [address] [place] [place], [place] [address]Jslkdroutiu (Bld) [#/Vol]1.80 10*3/uLNormal1.20-4.00UnShelby Memorial HospitalComment on above:Performed By: #### [id number] #### [facility] ([facility]) [address] [place] [address]Xitlikvycmr/100 WBC (Bld)28.3 %Jezkla52.0-45.0UnShelby Memorial HospitalComment on above:Performed By: #### [id number] #### [facility] ([facility]) [address] [place] [address]ORE (RBC) [Entitic mass]29.0 plGrdvaw61.0-33.0UnShelby Memorial HospitalComment on above:Performed By: #### [id number] #### [facility] ([facility]) [address] [place], [place] [address]TTY (RBC) [Entitic vol]88.5 rAAnhxpd24.0-98.0UnShelby Memorial HospitalComment on above:Performed By: #### [id number] #### [facility] ([facility]) [address] [place], [place] [address]Xkkfuwimq (Bld) [#/Vol]0.67 10*3/uLNormal0.10-1.00UnShelby Memorial HospitalComment on above:Performed By: #### [id number] #### [facility] ([facility]) [address] [place], [place] [address]Wslqtmszv/100 WBC (Bld)10.5 %Normal5.0-12.0UnShelby Memorial HospitalComment on above:Performed By: #### [id number] #### [facility] ([facility]) [address] [place], [place] [address]Isidezavuah (Bld) [#/Vol]3.57 10*3/uLNormal1.60-7.60UnShelby Memorial HospitalComment on above:Performed By: #### [id number] #### [facility] ([facility]) [address] [place], [place] [address]Cuebxpkfsfx/100 WBC (Bld)56.0 %Bzndej01.0-72.0UnShelby Memorial HospitalComment on above:Performed By: #### [id number] #### [facility] ([facility]) [address] [place] [address]WRYJ (PER 100 WBCS) BY AUTOMATED COUNT0.0 %Woauti0NjolsesfniShelby Memorial HospitalComment on above:Performed By: #### [id number] #### [facility] ([facility]) [address] [place] [address]WJYIKQSMN (10*3/UL) IN BLOOD AUTOMATED [id number] 10*3/uLNormal 150-400UnShelby Memorial HospitalComment on above:Performed By: #### [id number] #### [facility] ([facility]) [address] [place] [address]WLU (Bld) [#/Vol]3.90 10*6/uLNormal3.80-5.00UnShelby Memorial HospitalComment on above:Performed By: #### [id number] #### [facility] ([facility]) [address] [place] [address]XQO (Bld) [#/Vol]6.37 10*3/uLNormal4.00-10.60UnShelby Memorial HospitalComment on above:Performed By: #### [id number] #### [facility] ([facility]) [address] [place] [address]KFXX GLUCOSE METER UNSOLICITED RESULTSon 22-56-0258Hkwyllf [Mass/Vol]107 mg/pPEglr85-483NiqjrdfxgyShelby Memorial HospitalComment on above:Order Comment: Waived Testing in the ED is performed under the ED CLIA certificate #[id number].Result Comment: lraftisPerformed By: #### [id number] #### [facility] ([facility]) [address] [place] [address]78yc [id number] patient is Moderately Unstable - Medium risk of patient condition declining or worsening The patient's goals for the shift include comfort/rest The clinical goals for the shift include stable vital signsNormalUniversity of Carl R. Darnall Army Medical CenterALDOSTERONEon 89-30-4239NOSMSSOYMLF (NG/DL) IN SER/PLAS16.7 ng/dLNormalUniversAdams County Regional Medical CenterComment on above:Order Comment: Contacted DEBORA elise and [...] reference intervals for this test in the [facility] ([facility]). Performed By: [facility] [address] [place] [address] Senior [employer] Developer: Wilfrid Gomez MD, PhD CLIA Number: [id number] By: #### [id number] #### [facility] ([facility]) [address] [place], [place] [address]JXEZF METABOLIC PANELon 42-51-8472Exlxi gap [Moles/Vol] 12 mmol/LNormal7-20UnShelby Memorial HospitalComment on above:Performed By: #### [id number] ####[facility] ([facility])[address] [place] [address] Calcium [Mass/Vol]8.2 mg/dLLow8.6-10.3UnShelby Memorial HospitalComment on above:Performed By: #### [id number] ####[facility] ([facility])[address] [place], [place] [address]Hdckonym [Moles/Vol]104 mmol/ADvdtyk14-158HibfahrclqShelby Memorial HospitalComment on above:Performed By: #### [id number] ####[facility] ([facility])[address] [place], [place] [address]VR8 [Moles/Vol]21 mmol/LNormal 21-31UnShelby Memorial HospitalComment on above:Performed By: #### [id number] ####[facility] ([facility])[address] [place] [address]Oiauiwfhbq [Mass/Vol]3.12 mg/dLHigh0.60-1.20UnShelby Memorial HospitalComment on above:Performed By: #### [id number] ####[facility] ([facility])[address] [place], [place] [address]CXNHAMAGMQ FILTRATION RATE ML/MIN/1.73 SQ M.PRNZOXEGV49.0 mL/min/1.73m*2Low>60.0UnShelby Memorial HospitalComment on above:Result Comment: [facility]???s estimated glomerular filtration rate (eGFR) will [...] anyone group of individuals.Performed By: #### [id number] ####[facility] ([facility])[address] [place], [place] [address]Leoirst [Mass/Vol]103 mg/cDAcob41-140GvoonjeczvShelby Memorial HospitalComment on above:Performed By: #### [id number] ####[facility] ([facility])[address] [place], [place] [address]Wiqqfgwcl [Moles/Vol]5.0 mmol/L Normal3.5-5.1UnShelby Memorial HospitalComment on above:Performed By: #### [id number] ####[facility] ([facility])[address] [place] [address] Sodium [Moles/Vol]132 mmol/JPrb380-870KrhpgjhtapShelby Memorial HospitalComment on above:Performed By: #### [id number] ####[facility] ([facility])[address] [place], [place] [address]Thti nitrogen [Mass/Vol]46 mg/dLHigh7-25UnShelby Memorial HospitalComment on above:Performed By: #### [id number] ####[facility] ([facility])[address] [place], [place] [address]PRTK NITROGEN/CREATININE (MASS RATIO) IN SER/PLAS14.7NormalUniversAdams County Regional Medical CenterComment on above: Performed By: #### [id number] ####[facility] ([facility])[address] [place], [place] [address]IHL WITH AUTO DIFFERENTIALon 60-36-9188Tcbaoiyhf (Bld) [#/Vol]0.06 10*3/uLNormal0.00-0.20UnShelby Memorial HospitalComment on above: Performed By: #### [id number] ####[facility] ([facility])[address] [place], [place] [address]Iepybpjhy/100 WBC (Bld)1.1 %High0.0-1.0UnShelby Memorial HospitalComment on above:Performed By: #### [id number] ####[facility] ([facility])[address] [place], [place] [address]Pgofrkfpkcy (Bld) [#/Vol]0.26 10*3/uL Normal0.00-0.50UnShelby Memorial HospitalComment on above:Performed By: #### [id number] ####[facility] ([facility])[address] [place] [address] Eosinophils/100 WBC (Bld)4.8 %Normal0.0-6.0UnShelby Memorial Hospital Comment on above:Performed By: #### [id number] ####[facility] ([facility])[address] [place], [place] [address]Zplpnjhtpxd distribution width (RBC) [Ratio]16.4 % High11.5-15.0UnShelby Memorial HospitalComment on above:Performed By: #### [id number] ####[facility] ([facility])[address] [place] [address] ERYTHROCYTE MEAN CORPUSCULAR HEMOGLOBIN CONCENTRATION (G/DL) BY CPJEVIRCT16.2 g/pJRxcjbb31.0-35.0UnShelby Memorial HospitalComment on above:Performed By: #### [id number] ####[facility] ([facility])[address] [place], [place] [address]Uyffmzqumt (Bld) [Volume fraction]33.9 %Low36.0-45.0UnShelby Memorial HospitalComment on above:Performed By: #### [id number] ####[facility] ([facility])[address] [place], [place] [address]Obfsasdyjx (Bld) [Mass/Vol]10.9 g/dL Low12.0-15.0UnShelby Memorial HospitalComment on above:Performed By: #### [id number] ####[facility] ([facility])[address] [place] [address] Immature granulocytes (Bld) [#/Vol]0.02 10*3/uLNormal0.00-0.20UnShelby Memorial HospitalComment on above:Performed By: #### [id number] ####[facility] ([facility])[address] [place], [place] [address]Kkcalttb granulocytes/100 WBC (Bld)0.4 %Normal0.0-1.0UnShelby Memorial HospitalComment on above: Performed By: #### [id number] ####[facility] ([facility])[address] [place], [place] [address]Dhaapehavhk (Bld) [#/Vol]1.46 10*3/uLNormal1.20-4.00 [facility] HospitalComment on above:Performed By: #### [id number] ####[facility] ([facility])[address] [place], [place] [address]Qeaobmrmqfa/100 WBC (Bld)27.1 %Fcfzdz97.0-45.0UnShelby Memorial HospitalComment on above:Performed By: #### [id number] ####[facility] ([facility])[address] [place], [place] [address]DBN (RBC) [Entitic mass]29.2 veCtgeyc36.0-33.0UnShelby Memorial HospitalComment on above:Performed By: #### [id number] ####[facility] ([facility])[address] [place], [place] [address]HFR (RBC) [Entitic vol] 90.9 aWDnhmbs14.0-98.0UnShelby Memorial HospitalComment on above: Performed By: #### [id number] ####[facility] ([facility])[address] [place], [place] [address]Ncycpyoum (Bld) [#/Vol]0.63 10*3/uLNormal0.10-1.00UnShelby Memorial HospitalComment on above:Performed By: #### [id number] ####[facility] ([facility])[address] [place], [place] [address]Fmkjfueud/100 WBC (Bld) 11.7 %Normal5.0-12.0UnShelby Memorial HospitalComment on above: Performed By: #### [id number] ####[facility] ([facility])[address] [place], [place] [address]Snnwncmdcev (Bld) [#/Vol]2.96 10*3/uLNormal1.60-7.60 [facility] HospitalComment on above:Performed By: #### [id number] ####[facility] ([facility])[address] [facility], [place] [address]Djvitjvxpdb/100 WBC (Bld)54.9 %Vrscvb00.0-72.0UnShelby Memorial HospitalComment on above:Performed By: #### [id number] ####[facility] ([facility])[address] [place], [place] [address]EPTS (PER 100 WBCS) BY AUTOMATED COUNT0.0 %Wxmqpv1Lzdehlaqah of [place] Medical CenterComment on above:Performed By: #### [id number] ####[facility] ([facility])[address] [place] [address]IZMKOPZOW (10*3/UL) IN BLOOD AUTOMATED [id number] 10*3/mVEbuuih243-543FefrobprnbShelby Memorial Hospital Comment on above:Performed By: #### [id number] ####[facility] ([facility])[address] [place] [address]LCP (Bld) [#/Vol]3.73 10*6/uLLow3.80-5.00UnShelby Memorial HospitalComment on above:Performed By: #### [id number] ####[facility] ([facility])[address] [place] [address]PXS (Bld) [#/Vol]5.39 10*3/uLNormal4.00-10.60UnShelby Memorial HospitalComment on above: Performed By: #### [id number] ####[facility] ([facility])[address] [place] [address]QVAT GLUCOSE METER UNSOLICITED RESULTSon 47-78-6407Zrbpkpu [Mass/Vol]109 mg/bNCjcm32-502TxhmmjdsglShelby Memorial HospitalComment on above:Order Comment: Waived Testing in the ED is performed under the ED CLIA certificate #[id number].Result Comment: anuyitnPerformed By: #### [id number] ####[facility] ([facility])[address] [place] [address]Yagpfgy [Mass/Vol]128 mg/mXEwus74-958ApkkgwyjmoShelby Memorial HospitalComment on above:Order Comment: Waived Testing in the ED is performed under the ED CLIA certificate #[id number].Result Comment: ungbvag6Nlsxxelge By: #### [id number] #### [facility] ([facility]) [address] [place] [address]Avilwbl [Mass/Vol]155 mg/bMCmwa94-311YxxlukvstzShelby Memorial HospitalComment on above:Order Comment: Waived Testing in the ED is performed under the ED CLIA certificate #[id number].Result Comment: charpel2 Performed By: #### [id number] #### [facility] ([facility]) [address] [place], [place] [address]Jmoxkmb [Mass/Vol]109 mg/yIUzfx05-536MvhvixgemaShelby Memorial HospitalComment on above:Order Comment: Waived Testing in the ED is performed under the ED CLIA certificate #[id number].Result Comment: charpel2 Performed By: #### [id number] #### [facility] ([facility]) [address] [place], [place] [address]JKGLB ACTIVITYon 23-90-3621TVESP ACTIVITY4.7 ng/mL/hrNormal [facility] HospitalComment on above:Order Comment: Contacted DEBORA elise and explained the collection process of this test. Retimed for tomorrow morningResult Comment: INTERPRETIVE INFORMATION: Renin Activity Adult, Normal sodium diet: Supine ................. 0.2-1.6 ng/mL/hr Upright ................ 0.5-4.0 ng/mL/hr Children, Normal sodium diet, Supine: Nageezi (1-7 days) ..... 2.0-35.0 ng/mL/hr Cord blood [...] developed and its performance characteristics determined by [facility]. It has not been cleared or approved by the [place] Food and Drug Administration. This test was performed in a CLIA certified laboratory and is intended for clinical purposes. Performed By: [facility] [address] [place] [address] Senior [employer] Developer: Wilfrid Gomez MD, PhD [place] Number: [id number] By: #### [id number] ####[facility] (BEAKER)[address] [place], [place] [address]33ot [id number] patient is Moderately Stable - Low risk [...] needs and coordinate with support and continued care.[facility]30The patient is Moderately Stable - Low risk [...] stability and optimal renal function maintained Outcome: ProgressingNormalUniProMedica Memorial Hospital30The patient is Moderately Stable - Low risk of patient condition declining or worsening The patient's goals for the shift include comfort and sleep The clinical goals for the shift include Stable vital signs, no falls, comfort NormalUnShelby Memorial HospitalBASIC METABOLIC PANELon 44-45-2236Hebly gap [Moles/Vol]11 mmol/LNormal7-20UnShelby Memorial HospitalComment on above:Performed By: #### [id number] #### [facility] ([facility]) [address] [place], [place] [address]Grqhcob [Mass/Vol]8.8 mg/dLNormal8.6-10.3UnShelby Memorial HospitalComment on above:Performed By: #### [id number] #### [facility] ([facility]) [address] [place], [place] [address]Exgquefk [Moles/Vol]106 mmol/VOlshpg26-003UztuokxqpmShelby Memorial HospitalComment on above:Performed By: #### [id number] #### [facility] ([facility]) [address] [place], [place] [address]YC4 [Moles/Vol]25 mmol/FLcwpoh35-20QcbeaxkjhzShelby Memorial HospitalComment on above:Performed By: #### [id number] #### [facility] ([facility]) [address] [place], [place] [address]Iizmvzghmr [Mass/Vol]2.41 mg/dLHigh0.60-1.20UnShelby Memorial HospitalComment on above:Performed By: #### [id number] #### [facility] ([facility]) [address] [place], [place] [address]RDJBRIHKBA FILTRATION RATE ML/MIN/1.73 SQ M.GVIQNHROE13.4 mL/min/1.73m*2Low>60.0UnShelby Memorial HospitalComment on above:Result Comment: [facility]???s estimated glomerular filtration rate (eGFR) will [...] group of individuals.Performed By: #### [id number] #### [facility] ([facility]) [address] [place] [place] [address]Kgmzses [Mass/Vol]82 mg/xDDgeotm82-477HbdrzwcmtwShelby Memorial HospitalComment on above:Performed By: #### [id number] #### [facility] ([facility]) [address] [place] [address]Tyufxxwcr [Moles/Vol]3.9 mmol/LNormal3.5-5.1UnShelby Memorial HospitalComment on above:Performed By: #### [id number] #### [facility] ([facility]) [address] [place], [place] [address]Mvvwgg [Moles/Vol]138 mmol/ECysjps830-339FiixeklyrrShelby Memorial HospitalComment on above:Performed By: #### [id number] #### [facility] ([facility]) [address] [place], [place] [address]Vcnx nitrogen [Mass/Vol]38 mg/dLHigh7-25UnShelby Memorial HospitalComment on above:Performed By: #### [id number] #### [facility] ([facility]) [address] [place], [place] [address]HXOY NITROGEN/CREATININE (MASS RATIO) IN SER/PLAS15.8Normal [facility]ittman HospitalComment on above:Performed By: #### [id number] #### [facility] ([facility]) [address] [place], [place] [address]DVQ WITH AUTO DIFFERENTIALon 73-80-2089Zaislqury (Bld) [#/Vol] 0.05 10*3/uLNormal0.00-0.20UnShelby Memorial HospitalComment on above: Performed By: #### [id number] #### [facility] ([facility]) [address] [place] [address]Hgicalkmw/100 WBC (Bld)1.0 %Normal0.0-1.0UnShelby Memorial HospitalComment on above:Performed By: #### [id number] #### [facility] ([facility]) [address] [place] [address]Ibbzjoplbse (Bld) [#/Vol]0.14 10*3/uLNormal0.00-0.50UnShelby Memorial HospitalComment on above:Performed By: #### [id number] #### [facility] ([facility]) [address] [place], [place] [address]Hozussnpkhq/100 WBC (Bld)2.7 %Normal0.0-6.0UnShelby Memorial HospitalComment on above:Performed By: #### [id number] #### [facility] ([facility]) [address] [place], [place] [address]Nwybqwdcxkx distribution width (RBC) [Ratio]16.6 %High11.5-15.0 [facility]Rittman HospitalComment on above:Performed By: #### [id number] #### [facility] ([facility]) [address] [place], [place] [address]GSKGBTAIPWP MEAN CORPUSCULAR HEMOGLOBIN CONCENTRATION (G/DL) BY HGXIGIDPR92.4 g/yKDjprgi03.0-35.0UnShelby Memorial HospitalComment on above:Performed By: #### [id number] #### [facility] ([facility]) [address] [place], [place] [address]Ivkhioajsg (Bld) [Volume fraction]34.9 %Low36.0-45.0UnShelby Memorial HospitalComment on above:Performed By: #### [id number] #### [facility] ([facility]) [address] [place], [place] [address]Necftokcvl (Bld) [Mass/Vol]11.3 g/dLLow12.0-15.0UnShelby Memorial HospitalComment on above:Performed By: #### [id number] #### [facility] ([facility]) [address] [facility] [place] [address]Ksoykrav granulocytes (Bld) [#/Vol]0.01 10*3/uLNormal0.00-0.20 [facility]-Rittman HospitalComment on above:Performed By: #### [id number] #### [facility] ([facility]) [address] [facility] [place], [place] [address]Jzbgonbn granulocytes/100 WBC (Bld)0.2 %Normal0.0-1.0UnShelby Memorial HospitalComment on above:Performed By: #### [id number] #### [facility] ([facility]) [address] [facility] [place], [place] [address]Hhmlvswnjix (Bld) [#/Vol]1.51 10*3/uLNormal1.20-4.00UnShelby Memorial HospitalComment on above:Performed By: #### [id number] #### [facility] ([facility]) [address] [facility] [place], [place] [address]Ecgkcxxozxe/100 WBC (Bld)28.8 %Jzhury02.0-45.0UnShelby Memorial HospitalComment on above:Performed By: #### [id number] #### [facility] ([facility]) [address] [facility] [place], [place] [address]TMO (RBC) [Entitic mass]29.6 owFfvwzn80.0-33.0UnShelby Memorial HospitalComment on above:Performed By: #### [id number] #### [facility] ([facility]) [address] [place], [place] [address]SIS (RBC) [Entitic vol]91.4 mZHtvglf41.0-98.0UnShelby Memorial HospitalComment on above:Performed By: #### [id number] #### [facility] ([facility]) [address] [facility] [place], [place] [address]Mbzahtpci (Bld) [#/Vol]0.71 10*3/uLNormal0.10-1.00UnShelby Memorial HospitalComment on above:Performed By: #### [id number] #### [facility] ([facility]) [address] [place] [address]Zbfiydsmu/100 WBC (Bld)13.5 %High5.0-12.0UnShelby Memorial HospitalComment on above:Performed By: #### [id number] #### [facility] ([facility]) [address] [place] [address]Owgazbeouhn (Bld) [#/Vol]2.82 10*3/uLNormal1.60-7.60UnShelby Memorial HospitalComment on above:Performed By: #### [id number] #### [facility] ([facility]) [address] [address]Wtpavzptasn/100 WBC (Bld)53.8 %Xujzle22.0-72.0UnShelby Memorial HospitalComment on above:Performed By: #### [id number] #### [facility] ([facility]) [address] [place] [address]VJEK (PER 100 WBCS) BY AUTOMATED COUNT0.0 %Usiwpo1CusbzhtaikShelby Memorial HospitalComment on above:Performed By: #### [id number] #### [facility] ([facility]) [address] [place] [address]KTWYQGAMW (10*3/UL) IN BLOOD AUTOMATED IHOAR091 10*3/uLNormal 150-400UnShelby Memorial HospitalComment on above:Performed By: #### [id number] #### [facility] ([facility]) [address] [place] [address]WCG (Bld) [#/Vol]3.82 10*6/uLNormal3.80-5.00UnShelby Memorial HospitalComment on above:Performed By: #### [id number] #### [facility] ([facility]) [address] [address]KUO (Bld) [#/Vol]5.24 10*3/uLNormal4.00-10.60UnShelby Memorial HospitalComment on above:Performed By: #### [id number] #### [facility] ([place]) [address] [place], [place] [address]FNAPCSRfg [id number] Consult Note Reason for Consult: NSTEMI, hypertensive [...] DVT/PE, CKD stage IV, LEE. Transfer from [facility] for management of NSTEMI. Patient gives history [...] shortness of breath. She was taken to [facility] and was found to have high systolic blood pressure of 250. Troponin was 243-->324-->419. In [place] she got 2 doses of hydralazine and was also started on nitro drip with no improvement in the blood pressure and was given IV labetalol and was transferred to [facility] for suspected NSTEMI. CT brain [...] Pneumovax-23 [pneumococcal 23-cruz ps vaccine], Red dye, Nbdegfx-glb-fuf reductase inhibitors, and Varenicline Medications Current Outpatient [...] Value Ventricular Rate 71 Atrial Rate 71 NC Interval 158 QRS DURATION 100 QT Interval 464 QTC CALCULATION(BAZETT) 504 P Orlando 10 R-Orlando 2 T Wave Orlando 160 Impression Normal (more content not included)...NormalUnShelby Memorial Hospital CONSULTNephrology Consult Note Patient : Marleni Dennis; 74 y.o. Location: [facility]8/4108-01 Attending: Erickson Cabrera MD Admit Date: 03/13/2025 Hospital Day: 0 Reason for Consult: CKD IV with uncontrolled hypertension. History of Present Illness: Marleni Dennis is a 74 y.o. female who was transferred from [facility] after presenting with weakness after a fall as well as uncontrolled hypertension. She has pertinent past medical history of hypertension secondary to renal artery stenosis, CKD IV, CAD s/p CABG and PCI with stent placement, obstructive sleep apnea. She presented to [place] ER after a fall after showering as [...] does not regularly follow up with a strand buncher fine wire. She says she has a water pill [...] Dose Status apixaban (Eliquis) 2.5 mg tablet [id number] TAKE 1 TABLET BY MOUTH TWICE A DAY FOR 90 DAYS Historical Provider, Active aspirin 81 mg EC tablet [id number] Take 1 tablet every day by oral route. Historical Provider, Flag for Review buPROPion (Wellbutrin) 75 mg tablet [id number] Yes Take 75 mg by mouth twice a day. Historical Provider, Active carvedilol (Coreg) 12.5 mg tablet [id number] No Take 25 mg by mouth with breakfast and with eveni (more content not included)...NormalUnShelby Memorial HospitalCORTISOLon 92-87-8509WPVKSLCJ (UG/DL) IN SER/PLAS8.8 ug/dLNormal6- Wadsworth-Rittman HospitalComment on above:Performed By: #### [id number] ####[facility] ([facility])[address] [place], [place] [address]ZZSS SENSITIVITY TROPONIN Ion 54-49-3764DY TROPONIN I (NG/L)215 ng/LCritically high<15UnShelby Memorial HospitalComment on above:Performed By: #### [id number] #### [facility] ([facility]) [address] [place], [place] [address]AE TROPONIN I (NG/L)223 ng/LCritically high<15UnShelby Memorial HospitalComment on above:Performed By: #### [id number] ####[facility] ([facility])[address] [place], [place] [address]RC TROPONIN I (NG/L)228 ng/LCritically high<15UnShelby Memorial HospitalComment on above: Performed By: #### [id number] #### [facility] ([facility]) [address] [place] [address]QWAMJIGLGff 69-75-8348Ksxyickrh [Mass/Vol]2.8 mg/dLHigh1.9-2.7 [facility]-Rittman HospitalComment on above:Performed By: #### [id number] #### [facility] ([facility]) [address] [place] [address]Hewgtrjrf [Mass/Vol]1.2 mg/dLLow1.9-2.7UnShelby Memorial HospitalComment on above:Performed By: #### [id number] #### [facility] ([facility]) [address] [address]WQGEHABJgb 94-71-3666VEHTTDAKHmhddpz blood glucose is 79 mg/dl. Requesting ID band from registration. Orders noted, diet and water provided to patient. Will review BP and pain to patient's right head with on-call provider.NormalUnShelby Memorial HospitalPOCT GLUCOSE METER UNSOLICITED RESULTSon 71-19-0992Dthmbms [Mass/Vol]128 mg/dLHigh 70-105UnShelby Memorial HospitalComment on above:Order Comment: Waived Testing in the ED is performed under the ED CLIA certificate #[id number].Result Comment: ouihqkg3Uwcpdlpbs By: #### [id number] ####[facility] ([facility])[address] [place] [address]Bltnpbo [Mass/Vol]133 mg/gFJvkh43-438SpspyeiqruShelby Memorial HospitalComment on above:Order Comment: Waived Testing in the ED is performed under the ED CLIA certificate #[id number].Result Comment: [email or web address] Performed By: #### [id number] ####[facility] ([facility])[address] [place] [address]Betrige [Mass/Vol]172 mg/aCUitq66-405LhhtuhkohpShelby Memorial HospitalComment on above:Order Comment: Waived Testing in the ED is performed under the ED CLIA certificate #[id number].Result Comment: agrunde2 Performed By: #### [id number] ####[facility] ([facility])[address] [place] [address]Fwndwxw [Mass/Vol]136 mg/fAUaag80-961PgsrxosesqShelby Memorial HospitalComment on above:Order Comment: Waived Testing in the ED is performed under the ED CLIA certificate #[id number].Result Comment: agrunde2 Performed By: #### [id number] #### [facility] ([facility]) [address] [place] [address]Yicgent [Mass/Vol]81 mg/wVBpcixc39-408GqhlvqbwzhShelby Memorial HospitalComment on above:Order Comment: Waived Testing in the ED is performed under the ED CLIA certificate #[id number].Result Comment: charpel2 Performed By: #### [id number] #### [facility] ([facility]) [address] [place] [address]J0, FREEon 85-25-2037PVUGRSUXL (T4) FREE (NG/DL) IN SER/PLAS1.23 ng/dLNormal0.71-1.85UnShelby Memorial HospitalComment on above: Performed By: #### [id number] #### [facility] ([facility]) [address] [place] [address]GCT[address] REFLEX TO FT4on 28-25-5621VEAYBHSSGZM (MIU/L) IN SER/PLAS BY DETECTION LIMIT <= 0.05 MIU/L6.01 mIU/LHigh0.34-5.60UnShelby Memorial HospitalComment on above:Performed By: #### [id number] #### [facility] ([facility]) [address] [place], [place] [address]NIE (INCLUDES DIFF/PLT)on 31-05-9389Kefnktjcr (Bld) [#/Vol]0.042 10*3/uLNormal0-200Quest DiagnosticsComment on above:Performed By: #### 7600, 28174, 6399, 80388, 899 #### [facility] of [address], [address] [place] [address] Primer Inspector: Figueroa Jacques MDBasophils/100 WBC (Bld)0.8 %NormalQuest DiagnosticsComment on above:Performed By: #### 7600, 61608, 6399, 87325, 899 #### [facility] of [address], [address] [place] [address] Primer Inspector: Figueroa Jacques MDEosinophils (Bld) [#/Vol]0.25 10*3/uLNormal 15-500Quest DiagnosticsComment on above:Performed By: #### 7600, 86376, 6399, 03513, 899 #### [facility] of [place] [address] Primer Inspector: Figueroa Jacques MDEosinophils/100 WBC (Bld)4.8 %NormalQuest DiagnosticsComment on above:Performed By: #### 7600, 05813, 6399, 45152, 899 #### [facility] of [place] [address] Primer Inspector: Figueroa Jacques MDErythrocyte distribution width (RBC) [Ratio] 14.8 %Wohmpe11.0-15.0Quest DiagnosticsComment on above:Performed By: #### 7600, 24329, 6399, 19077, 899 #### [facility] of [place] [address] Primer Inspector: Figueroa Jacques MDHematocrit (Bld) [Volume fraction]36.8 %Normal 35.0-45.0Quest DiagnosticsComment on above:Performed By: #### 7600, 87698, 6399, 23289, 899 #### [facility] of [place] [address] Primer Inspector: Figueroa Jacques MDHemoglobin (Bld) [Mass/Vol]11.9 g/dLNormal 11.7-15.5Quest DiagnosticsComment on above:Performed By: #### 7600, 07490, 6399, 63676, 899 #### [facility] of [address], [address] [place] [address] Primer Inspector: Figueroa Jacques MDLymphocytes (Bld) [#/Vol]1.737 10*3/uLNormal 850-3900Quest DiagnosticsComment on above:Performed By: #### 7600, 50185, 63, 75594, 899 #### [facility] of [address], [address] [place] [address] Primer Inspector: Figueroa Jacques MDLymphocytes/100 WBC (Bld)33.4 %NormalQuest DiagnosticsComment on above:Performed By: #### 7600, 69866, 63, 26514, 899 #### [facility] of [address], [address] [place] [address] Primer Inspector: Figueroa Jacques MDMCH (RBC) [Entitic mass]28.7 cuKxfiil88.0-33.0 Quest DiagnosticsComment on above:Performed By: #### 7600, 00648, 63, 21620, 899 #### [facility] of [place] [address] Primer Inspector: Figueroa Jacques MDMCHC (RBC) [Mass/Vol]32.3 g/cJEqovlu26.0-36.0 Quest DiagnosticsComment on above:Result Comment: For adults, a slight decrease in the calculated MCHC value (in the range of 30 to 32 g/dL) is most likely not clinically significant; however, it should be interpreted with caution in correlation with other red cell parameters and the patient's clinical condition.Performed By: #### 7600, 37611, 63, 42262, 899 #### [facility] of [place] [address] Primer Inspector: Figueroa Jacques MDMCV (RBC) [Entitic vol]88.7 bUMsvcli73.0-100.0 Quest DiagnosticsComment on above:Performed By: #### 7600, 46855, 6399, 33723, 899 #### [facility] of [address], [address] [place] [address] Primer Inspector: Figueroa Jacques MDMonocytes (Bld) [#/Vol]0.51 10*3/uLNormal 200-950Quest DiagnosticsComment on above:Performed By: #### 7600, 58622, 6399, 08937, 899 #### [facility] of [address], [address] [place] [address] Primer Inspector: Figueroa Jacques MDMonocytes/100 WBC (Bld)9.8 %NormalQuest DiagnosticsComment on above:Performed By: #### 7600, 06863, 6399, 69327, 899 #### [facility] of [address], [address] [place] [address] Primer Inspector: Figueroa Jacques MDNeutrophils (Bld) [#/Vol]2.662 10*3/uLNormal 1500-7800Quest DiagnosticsComment on above:Performed By: #### 7600, 31396, 6399, 51512, 899 #### [facility] of [address], [address] [place] [address] Primer Inspector: Figueroa Jacques MDNeutrophils/100 WBC (Bld)51.2 %NormalQuest DiagnosticsComment on above:Performed By: #### 7600, 45756, 6399, 00799, 899 #### [facility] of [address], [address] [place] [address] Primer Inspector: Figueroa Jacques MDPlatelet mean volume (Bld) [Entitic vol]10.6 fLNormal7.5-12.5Quest DiagnosticsComment on above:Performed By: #### 7600, 37338, 6399, 24132, 899 #### [facility] of [address], [address] [place] [address] Primer Inspector: Figueroa Jacques MDPlatesaint joseph's hospital ([facility]) [#/Vol]205 10*3/uLNormal 140-400Quest DiagnosticsComment on above:Performed By: #### 7600, 42696, 6399, 23758, 899 #### [facility] of [address], [address] [place] [address] Primer Inspector: Figueroa Jacques [facility] ([facility]) [#/Vol]4.15 10*6/uLNormal3.80-5.10 Quest DiagnosticsComment on above:Performed By: #### 7600, 37768, 6399, 22071, 899 #### [facility] of [place] [address] Primer Inspector: Figueroa Jacques MDST. [facility] ([facility]) [#/Vol]5.2 10*3/uLNormal3.8-10.8 Quest DiagnosticsComment on above:Performed By: #### 7600, 19431, 6399, 45548, 899 #### [facility] of [place] [address] Primer Inspector: Figueroa Jacques MDCOMPREHENSIVE METABOLIC PANELon 01-02-2025 Albumin [Mass/Vol]3.9 g/dLNormal3.6-5.1Quest DiagnosticsComment on above: Performed By: #### 7600, 76930, 6399, 35178, 899 #### [facility] of [place] [address] Primer Inspector: Figueroa Jacques MDAlbumin/Globulin [Mass ratio]1.5 {ratio}Normal 1.0-2.5Quest DiagnosticsComment on above:Performed By: #### 7600, 35379, 6399, 30271, 899 #### [facility] of [place] [address] Primer Inspector: Figueroa Jacques MDALP [Catalytic activity/Vol]45 U/VUylejc58-613 Quest DiagnosticsComment on above:Performed By: #### 7600, 93276, 6399, 55491, 899 #### [facility] [place] [address] Primer Inspector: Figueroa Jacques MDALT [Catalytic activity/Vol]4 U/LLow6-29Quest DiagnosticsComment on above:Performed By: #### 7600, 26678, 6399, 94646, 899 #### [facility] of [place] [address] Primer Inspector: Figueroa Jacques MDAST [Catalytic activity/Vol]14 U/SPpvygq32-33 Quest DiagnosticsComment on above:Performed By: #### 7600, 83081, 6399, 11562, 899 #### [facility] [place] [address] Primer Inspector: Figueroa Jacques MDBilirubin [Mass/Vol]0.6 mg/dLNormal0.2-1.2 Quest DiagnosticsComment on above:Performed By: #### 7600, 96338, 6399, 18293, 899 #### [facility] [place] [address] Primer Inspector: Figueroa Jacques MDCalcium [Mass/Vol]9.2 mg/dLNormal8.6-10.4Quest DiagnosticsComment on above:Performed By: #### 7600, 70072, 6399, 36504, 899 #### [facility] [place] [address] Primer Inspector: Figueroa Jacques MDChloride [Moles/Vol]108 mmol/WMajhwj14-532 Quest DiagnosticsComment on above:Performed By: #### 7600, 88856, 6399, 19671, 899 #### [facility] of [place] [address] Primer Inspector: Figueroa Jacques MDCO2 [Moles/Vol]24 mmol/NJarjxi74-25Drdgr DiagnosticsComment on above:Performed By: #### 7600, 91510, 63, 48566, 899 #### [facility] [place] [address] Primer Inspector: Figueroa OCHOAreatinine [Mass/Vol]2.01 mg/dLHigh0.60-1.00 Quest DiagnosticsComment on above:Performed By: #### 7600, 13784, 63, 07226, 899 #### [facility] [place] [address] Primer Inspector: Figueroa Jacques MDGFR/1.73 sq M.predicted among non-blacks MDRD (S/P/Bld) [Vol rate/Area]25 mL/min/{1.73_m2}Low> OR = 60Quest DiagnosticsComment on above:Performed By: #### 7600, 53856, 6398, 51793, 899 #### [facility] [place] [address] Primer Inspector: Figueroa Jacques MDGlobulin (S) [Mass/Vol]2.6 g/dLNormal1.9-3.7 Quest DiagnosticsComment on above:Performed By: #### 7600, 70027, 63, 31911, 899 #### [facility] [place] [address] Primer Inspector: Figueroa Jacques MDGlucose [Mass/Vol]103 mg/lSIfzz21-41Ilptx DiagnosticsComment on above:Result Comment: Fasting reference interval For someone without known diabetes, a glucose value between 100 and 125 mg/dL is consistent with prediabetes and should be confirmed with a follow-up test.Performed By: #### 7600, 67832, 63, 79712, 899 #### [facility] [place] [address] Primer Inspector: Figueroa Jacques MDPotassium [Moles/Vol]4.4 mmol/LNormal3.5-5.3 Quest DiagnosticsComment on above:Performed By: #### 7600, 96336, 6399, 66305, 899 #### [facility] of [place] [address] Primer Inspector: Figueroa Jacques MDProtein [Mass/Vol]6.5 g/dLNormal6.1-8.1Quest DiagnosticsComment on above:Performed By: #### 7600, 76653, 6399, 82054, 899 #### [facility] of [address], [address] [place] [address] Primer Inspector: Figueroa Jacques MDSodium [Moles/Vol]141 mmol/JEewuvv294-473Arens DiagnosticsComment on above:Performed By: #### 7600, 03846, 6399, 65773, 899 #### [facility] of [address], [address] [place] [address] Primer Inspector: Figueroa Jacques MDUrea nitrogen [Mass/Vol]27 mg/dLHigh7-25Quest DiagnosticsComment on above:Performed By: #### 7600, 80620, 6399, 91867, 899 #### [facility] [place] [address] Primer Inspector: Figueroa Jacques MDUrea nitrogen/Creatinine [Mass ratio]13 mg/mg Normal6-22Quest DiagnosticsComment on above:Performed By: #### 7600, 82792, 6399, 64553, 899 #### [facility] of [place] [address] Primer Inspector: Figueroa Jacques MDLIPID PANEL, STANDARD 74-31-5072Pumweymdoxb [Mass/Vol]138 mg/dLNormal<200Quest DiagnosticsComment on above:Order Comment: FASTING:YES FASTING: YESPerformed By: #### 7600, 99264, 6399, 23416, 899 #### [facility] of [place] [address] Primer Inspector: Figueroa Jacques MDCholesterol in HDL [Mass/Vol]37 mg/dLLow> OR = 50Quest DiagnosticsComment on above:Order Comment: FASTING:YES FASTING: YESPerformed By: #### 7600, 31796, 6399, 33363, 899 #### [facility] [address], [address] [place] [address] Primer Inspector: Figueroa OCHOAholesterol in LDL [Mass/Vol]76 mg/dLNormal Quest [...] LDL-C. Andres SS et al. NICOLE. 2013;310(19): 2565-1955 (http://education.Trovali.norin.tv/faq/SCS802)Performed By: #### 7600, 12804, 6399, 97006, 899 #### [facility] [address], [address] [place] [address] Primer Inspector: Figueroa Brooks.total/Cholesterol in HDL [Mass ratio]3.7 {ratio}Normal<5.0Quest DiagnosticsComment on above:Order Comment: FASTING:YES FASTING: YESPerformed By: #### 7600, 66643, 6399, 41077, 899 #### [facility] [address], [address] [place] [address] Primer Inspector: Figueroa SILVA HDL KZXWSVIJRYZ996 mg/dL (calc)Normal<130 Quest DiagnosticsComment on above:Order Comment: FASTING:YES FASTING: YESResult Comment: For patients with diabetes plus 1 major ASCVD risk factor, treating to a non-HDL-C goal of <100 mg/dL (LDL-C of <70 mg/dL) is considered a therapeutic option.Performed By: #### 7600, 35356, 6399, 11659, 899 #### [facility] of [place] [address] Primer Inspector: Figueroa Jacques MDTriglyceride [Mass/Vol]153 mg/dLHigh<150Quest DiagnosticsComment on above:Order Comment: FASTING:YES FASTING: YESPerformed By: #### 7600, 99170, 6399, 37744, 899 #### [facility] of [place] [address] Primer Inspector: Figueroa Jacques MDT3, [facility] 13-02-9075Fhbd T3 [Mass/Vol]2.7 pg/mLNormal2.3-4.2Quest DiagnosticsComment on above:Performed By: #### 3020, 39023, %SBCULI, 6399 #### [facility] [place] [address] Primer Inspector: Figueroa Jacques MDT4, [facility] 76-13-1443Pzfd T4 [Mass/Vol]1.2 ng/dLNormal0.8-1.8Quest DiagnosticsComment on above:Performed By: #### 7600, 64424, 6399, 91311, 899 #### [facility] [place] [address] Primer Inspector: Figueroa MURILLOCanyon Ridge Hospital 09-10-7548EVY Qn3.82 m[IU]/LNormal 0.40-4.50Quest DiagnosticsComment on above:Performed By: #### 3020, 03658, %SBCULI, 6399 #### [facility] [place] [address] Primer Inspector: Figueroa Jacques MDLaboratory - Hematology and Cell countson 12-52-9489XaQ1x (Bld) [Mass fraction]5 %NOMS HealthcareNo Panel Informationon 37-61-6966MGPS HealthcareAmbulatory Visit Summaryon 93-99-4827Upxgapnhqz Visit SummaryAmbulatory Visit Summary MARLENI DENNIS :1950 [...] mg Tab) nitroglycerin (nitroglycerin 0.4 mg SubL [place]) pantoprazole (Pantoprazole [address] Tab) pregabalin [...] BEAULIEU, Alfredo Moya Where: [facility] of [address] [address]- You Need to Schedule the Following Appointments Follow Up with RONALD BEAULIEU, SONIA Montelongo When: Where: [facility] [address], [place] [phone] Medications What How Much When Instructions New mirabegron (mirabegron 50 mg oral tablet, extended release) 1 Tablets By Mouth Every day Refills: 11 Pickup at [facility]/pharmacy #[id number] Unchanged apixaban (Eliquis 2.5 mg oral tablet) [...] concerns Unchanged nitroglycerin (nitroglycerin 0.4 mg SubL Mor[place]) Sublingual Every 5 minutes Contact prescribing physician [...] physician if questions or concerns Pharmacy Information [facility]/pharmacy #[id number]: [address] [place], [place] [id number] [phone] What How Much When Comments Stop Taking oxybutynin (oxybutynin 10 mg ER Tab) 1 Tablets By Mouth Every day Allergies iodine (Rash) shellfish (Unknown) statins (Unknown) Problems Ongoing - Any problem that you are currently receiving treatment for. 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 Kidney lesion Osteoporosis Urge incontinence Historical - Any problem that you are no longer receiving treatment for. Heart disease Hyperlipidem (more content not included)...[facility] Reminderson 62-01-2745TzsdaidoxUdlzeymhp From: Pati Akins To: EU - Recalls Cardenas; Sent: 11/18/2024 14:29:07 EST Show up: 09/18/2025 14:28:00 EST Subject: MRI of ABD Due Date/Time: 10/13/2025 14:28:00 EST Reminder/Recall Patient is due for ABD MRI w contrast prior to November 2025 appt/ [facility]-83-1125Noiwbbx Office/Clinic NoteUrology Office/Clinic Note Chief Complaint 6 [...] qd. Possible SEs discussed. Rx sent to [facility]. -Cont double void maneuvers 3. 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 Elevated risk for periop complications in the future. Follow-up With When Contact Information Alfredo CARDENAS MD, URL [facility] [address], [place] [address] [phone] Additional Instructions: 1 yr w/ MRI Patient [...] on back, Tonsillectomy. Medication (more content not included)...[facility] Comment on above:Result Comment: Electronically Signed By: Alfredo CARDENAS MD\.br\Date and Time Signed: 11/18/24 14:26 EST\.br\Electronically Co-Signed By: Mayte Vogt\.br\Date and Time Co-Signed: 03/03/25 14:24 ESTReminderson [id number] From: MIGUEL Thomson APRN, Maria Luisa Pritchard To: DARREL Cardenas; Sent: 03/19/2024 15:06:49 EDT Show up: 08/18/2024 15:06:00 EST Subject: Reminder Message Reminder Message MRI abdomen with and without IV contrast for kidney lesion surveillance. Follow- up appointment scheduled September Order for MRI and accompanying paperwork faxed to [facility] Central scheduling today. They will call pt to schedule. Pt is scheduled today at 2pm for MRI and creatinine draw. Will monitor Results in chart for review Results in chart for reviewW[facility] CREATININEon [id number] [Mass/Vol]1.56 mg/dLHigh0.55 - 1.02 mg/dLNOMercy Hospital WashingtonGFR/1.73 sq M.predicted CKD-EPI (S/P/Bld) [Vol rate/Area]39Low>=60 mL/min/1.73m [facility] HealthcareInterpretation and review of laboratory resultsAbAscension Genesys Hospital EGFR-NON AF TCLWWALR35Jos>=60 mL/min/1.73m [facility] HealthcareCLINISYNATHOL [facility] Anbverglke31ph [id number] echo result from 05/10/2024: MD Kari Castellano MA Echo was ok, follow up in 1 year. Patient informed.[facility] SouthOffice Visiton [id number]-up [id number] Marleni Dennis 1950 F Date Provider Department Center 04/24/2024 [facility] AGUILERA CARD [facility] Family History Problem Relation Age of Onset Coronary artery disease Mother Stroke Mother Coronary artery disease Father Ovarian cancer Sister Family Status - Relation Status Age at Mother Father Sister Level of Service:10182 [place] OFFICE/OUTPATIENT ESTABLISHED MOD MDM 30 [facility] Noteon 03-19-2024 Urology Office/Clinic NoteUrology [...] with voice recognition artificial intelligence software, specifically Xfluential, Negotiant and or VisualDNA. Substitutions may have occurred due to the [...] 0 -Continue oxybutynin, call for refills Ordered: [id number] Measure Post Void residual urine and/or bladder [...] months for continued monitoring 3. 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 (Z79.01: correction (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) On Eliquis Follow-up With When Contact Information RONALD BEAULIEU, Alfredo R, [facility] [address], [place] [address] [phone] Additional Instructions: 6 mos w/ MRI Patient [...] tablet, extended release nitroglycerin 0.4 mg SubL Morrow, SubLingual, q5min oxybutynin 10 mg ER Tab, [...] virus vaccine, inactivated 07/04/2022 Recorded SARS-CoV-2 (COVID-19) mRNAMUL.ORD![id number] 07/04/2022 Recorded influenza virus vaccine, inactivated 06/24/2021 Recorded SARS-CoV-2 (COVID-19) mRNA BNT-162b2 vax 06/24/2021 Recorded 2022-09-26: TPV70 SARS-CoV-2 (COVID-19) mRNA BNT-162b2 vax 11/17/2020 Recorded 2022-09-26: TPV70 SARS-CoV-2 (COVID-19) mRNA BNT-162b2 vax 10/27/2020 Recorded 2022-09-26: TPV70 influenza virus vaccine, inactivated 07/08/2020 Recorded [1] URO- review MRI, start Oxybutynin; RONALD BEAULIEU (more content not included)... [facility] HospitalComment on above:Result Comment: Electronically Signed By: MIGUEL Thomson APRN, Maria Luisa Pritchard\.br\Date and Time Signed: 03/19/24 15:09 EDTCBC AUTO DIFFon [id number] #0.1 103/ulNormal0.0-0.1[facility] HospitalComment on above:Performed By: #### CBC #### [facility] [address] [address] [address] Aryan PettyBasophils/100 WBC (Bld)1.4 %Normal0.2-2.0[facility] Comment on above:Performed By: #### CBC #### [facility] [address] [address] [address] Aryan Loza #0.6 103/ulNormal0.0-0.7The [facility] CenterComment on above: Performed By: #### CBC #### [facility] [address] [address] [address] Aryan Bensonosinophils/100 WBC (Bld)7.7 %Critically high0.9-7.0The [facility] CenterComment on above:Performed By: #### CBC #### [facility] [address] [address] [address] Aryan Bensonrythrocyte distribution width (RBC) [Ratio]16.4 %Critically high 11.0-15.0The [facility] CenterComment on above:Performed By: #### CBC #### [facility] [address] [place] [address] Dr. Aryan PettyHematocrit (Bld) [Volume fraction]40.6 %Vblprj61.0-48.0The [facility] CenterComment on above:Performed By: #### CBC #### [facility] [address] [place] [address] Dr. Aryan PettyHemoglobin (Bld) [Mass/Vol]12.9 g/kNPnqifc11.0-16.0The [facility] CenterComment on above:Performed By: #### CBC #### [facility] [address] [place] [address] Dr. Aryan PettyIG #0.03 10e3/ulNormal0.00-0.03The [facility] CenterComment on above:Performed By: #### CBC #### [facility] [address] [place] [address] Dr. Aryan PettyIG %0.4 %Normal0.0-0.5The [facility] CenterComment on above: Performed By: #### CBC #### [facility] [address] [place] [address] Dr. Aryan Vogt #2.6 103/ulNormal1.2-3.8The [facility] CenterComment on above:Performed By: #### CBC #### [facility] [address] [place] [address] Dr. Aryan Nogueramphocytes/100 WBC (Bld)35.5 %Ycrsmk03.5-60.0The [facility] CenterComment on above:Performed By: #### CBC #### [facility] [address] [place] [address] Dr. Aryan RussellUAL DIFF REQNONormalThe [facility] CenterComment on above: Performed By: #### CBC #### [facility] [address] [place] [address] Dr. Aryan Del Angel (RBC) [Entitic mass]26.5 pgCritically low26.7-34.0The [facility] CenterComment on above:Performed By: #### CBC #### [facility] [address] [place] [address] Dr. Aryan Booker (RBC) [Mass/Vol]31.8 g/mILmqbog11.9-35.2The [facility] CenterComment on above:Performed By: #### CBC #### [facility] [address] [place] [address] Dr. Aryan Lugo (RBC) [Entitic vol]83.5 dXGilpgx10.0-99.0The [facility] CenterComment on above:Performed By: #### CBC #### [facility] [address] [place] [address] Dr. Aryan Sharma #0.7 103/ulNormal0.3-0.8The [facility] CenterComment on above:Performed By: #### CBC #### [facility] [address] [place] [address] Dr. Aryan Fairchildocytes/100 WBC (Bld)9.9 %Normal1.7-12.0The [facility] Comment on above:Performed By: #### CBC #### [facility] [address] [place] [address] Dr. Aryan Tijerina #3.3 103/ulNormal1.4-6.5The [facility] CenterComment on above:Performed By: #### CBC #### [facility] [address] [place] [address] Dr. Aryan Gutierrezutrophils/100 WBC (Bld)45.1 %Jzmqpk66.0-75.0The [facility] CenterComment on above:Performed By: #### CBC #### [facility] [address] [place] [address] Dr. Aryan Louislet mean volume (Bld) [Entitic vol]11.0 fLNormal9.5-13.5The [facility] CenterComment on above:Performed By: #### CBC #### [facility] [address] [place] [address] Dr. Aryan PettyPLT270 103/zdBzbkuj297-145TzoOhiohealth O'Bleness HospitalComment on above: Performed By: #### CBC #### [facility] [address] [place] [address] Dr. Aryan PettyRBC4.86 106/ulNormal4.20-5.40The [facility] CenterComment on above:Performed By: #### CBC #### [facility] [address] [place] [address] Dr. Aryan PettyWBC7.4 103/ulNormal4.0-11.0The [facility] CenterComment on above: Performed By: #### CBC #### [facility] [address] [place] [address] Dr. Aryan JusticeID PROFILEon 79-16-7420AAZR-HDL RATIO NORMSEE [facility] HospitalComsparrow ionia hospital on above:Result Comment: 3.3 - 4.4 LOW RISK 4.4 - 7.1 AVERAGE RISK 7.1 - 11.0 MODERATE RISK >11.0 HIGH RISKPerformed By: #### CMP, LIPID #### [facility] [address] [place] [address] Dr. Aryan Alexandraesterol [Mass/Vol]189 mg/dLNormal<=200[facility] Comment on above:Performed By: #### CMP, LIPID #### [facility] [address] [place] [address] Dr. Aryan PettyCholesterol in HDL [Mass/Vol]30 mg/dLCritically lgt92-98Tdm [facility] on above:Performed By: #### CMP, LIPID #### [facility] [address] [place] [address] Dr. Aryan Alexandraesterol in LDL [Mass/Vol]101.6 mg/dLCleveland Clinic Union Hospital on above:Performed By: #### CMP, LIPID #### [facility] [address] [place] [address] Dr. Aryan Alexandraestermao.total/Cholesterol in HDL [Mass ratio]6.3 {ratio} NormalThe [facility] Warren Hospitalment on above:Performed By: #### CMP, LIPID #### [facility] [address] [place] [address] Dr. Aryan Armendariz NORMAL> or = 60 mg/dl - LOW CARDIOVASCULAR RISK <40 mg/dl - HIGH CARDIOVASCULAR RISKKindred Hospital LimaComment on above:Performed By: #### CMP, LIPID #### [facility] [address] [place] [address] Dr. Aryan PettyLDL CALC NORMALSEE BELOWKindred Hospital LimaComment on above:Result Comment: <100 mg/dl OPTIMAL 100 - 129 mg/dl NEAR OR ABOVE OPTIMAL 130 - 159 mg/dl BORDERLINE HIGH 160 - 189 mg/dl HIGH >190 mg/dl VERY HIGH Performed By: #### CMP, LIPID #### [facility] [address] [place] [address] Dr. Aryan PettyTriglyceride [Mass/Vol]287 mg/dLCritically high<=150The [facility] on above:Performed By: #### CMP, LIPID #### [facility] [address] [place] [address] Dr. Aryan PettyVLDL CALC57.4 mg/dLNoClermont County HospitalComsparrow ionia hospital on above: Performed By: #### CMP, LIPID #### [facility] [address] [place] [address] Dr. Aryan PettyPROF 14(COMP METB)on 04-51-0240Hyfwkdj [Mass/Vol]3.6 g/dLNormal 3.4-5.0The [facility] on above:Performed By: #### CMP, LIPID #### [facility] [address] [place] [address] Dr. Aryan PettyAlbumin/Globulin [Mass ratio]0.8 {ratio}NormalThe [facility] on above:Performed By: #### CMP, LIPID #### [facility] [address] [place] [address] Dr. Aryan AbreuP [Catalytic activity/Vol]86 U/GVsuhdd88-040Nbo [facility]worth HospitalComment on above:Performed By: #### CMP, LIPID #### [facility] [address] [address] [address] Aryan Acharya [Catalytic activity/Vol]21 U/MMmrmrf12-45Wfu [facility] CenterComment on above:Performed By: #### CMP, LIPID #### [facility] [address] [address] [address] Aryan Starkon gap [Moles/Vol]13.1 mmol/LNormalThe [facility] Comment on above:Performed By: #### CMP, LIPID #### [facility] [address] [address] [address] Aryan PettyAST [Catalytic activity/Vol]27 U/GKtxmwu27-44Wxs [facility] CenterComment on above:Performed By: #### CMP, LIPID #### [facility] [address] [address] [address] Aryan PettyBilirubin [Mass/Vol]0.4 mg/dLNormal0.2-1.0[facility] Comment on above:Performed By: #### CMP, LIPID #### [facility] [address] [address] [address] Aryan PettyCalcium [Mass/Vol]9.4 mg/dLNormal8.5-10.1[facility] Comment on above:Performed By: #### CMP, LIPID #### [facility] [address] [address] [address] Aryan PettyChloride [Moles/Vol]103 mmol/DBjhfov44-899Stk [facility] Comment on above:Performed By: #### CMP, LIPID #### [facility] [address] [address] [address] Aryan PettyCO2 [Moles/Vol]27.6 mmol/KZnqjiy83.0-32.0The [facility] Comment on above:Performed By: #### CMP, LIPID #### [facility] [address] [address] [address] Aryan PettyCreatinine [Mass/Vol]2.21 mg/dLCritically high0.55-1.02The [facility] CenterComment on above:Performed By: #### CMP, LIPID #### [facility] [address] [address] [address] Aryan BensonGFR-AF ZTFYXTGJ83 mL/min/1.26f6Hnwczqzlst low>=60The [facility] CenterComment on above:Performed By: #### CMP, LIPID #### [facility] [address] [address] [address] Aryan BensonGFR-NON AF HAKXVHDU43 mL/min/1.56d5Hcixktvoee low>=60The [facility] CenterComment on above:Performed By: #### CMP, LIPID #### [facility] [address] [place] [address] Dr. Aryan PettyGlobulin (S) [Mass/Vol]4.6 g/dLNormalThTriHealthComment on above:Performed By: #### CMP, LIPID #### [facility] [address] [place] [address] Dr. Aryan PettyGlucose [Mass/Vol]120 mg/dLCritically mtmx07-766LldOhiohealth O'Bleness HospitalComment on above:Performed By: #### CMP, LIPID #### [facility] [address] [place] [address] Dr. Aryan PettyPotassium [Moles/Vol]4.0 mmol/LNormal3.5-5.1[facility] Comment on above:Performed By: #### CMP, LIPID #### [facility] [address] [place] [address] Dr. Aryan PettyProtein [Mass/Vol]8.2 g/dLNormal6.4-8.2[facility] Comment on above:Performed By: #### CMP, LIPID #### [facility] [address] [place] [address] Dr. Aryan PettySodium [Moles/Vol]140 mmol/WJelafz332-516JrkOhiohealth O'Bleness Hospital Comment on above:Performed By: #### CMP, LIPID #### [facility] [address] [place] [address] Dr. Aryan PettyUrea nitrogen [Mass/Vol]29.0 mg/dLCritically high7.0-18.0[facility] HospitalComment on above:Performed By: #### CMP, LIPID #### [facility] [address] [place], [place] [address] Dr. Aryan PettyUrea nitrogen/Creatinine [Mass ratio]13.1 mg/mgNormalThTriHealthComment on above:Performed By: #### CMP, LIPID #### [facility] [address] [place], [place] [address] Dr. Aryan PettyUS CAROTID ART BILon [id number] CAROTID ART BILEXAMINATION: US CAROTID ART TEJ [...] Electronically authenticated by: TONYA GARCIA Date: 2023-01-10 15:[address] [place], [place] [address]XR DEXA BONE DENSITYon [id number] DEXA BONE DENSITY EXAMINATION: XR DEXA BONE [...] . -28.3% change since prior study. IMPRESSION: [facility] Organization Classification: Osteoporosis - High Fracture Risk Electronically authenticated by: TONYA GARCIA Date: 2022-09-07 16:41NoClermont County HospitalMRI ABDOMEN WO W CONon [id number] ABDOMEN WO W CONEXAM: MRI ABDOMEN WO [...] Electronically authenticated by: RYLAN HOPKINS Date: 2022-09-01 12:43[facility] Hospital LimaCREATININEon 78-58-8472Pdtlvmqjgc [Mass/Vol]2.23 mg/dL Critically high0.55-1.02[facility]len[facility] HospitalComment on above:Performed By: #### CREA ####[facility] [address] [address]Dr. Yilan ChangEGFR-AF FIDDWEOF11 mL/min/1.44s3Hqmbvohmcq low>=60[facility]len[facility] HospitalComment on above:Performed By: #### CREA ####[facility] [address] [address]Dr. Yilan ChangEGFR-NON AF CMQLZGWZ37 mL/min/1.49y5Ezevymznbv low>=60[facility]len[facility] HospitalComment on above: Performed By: #### CREA ####[facility] [address] [address]Dr. Yilan ChangECHOCARDIO M/2D COMPLETEon 03-16-2022 ECHOCARDIO M/2D COMPLETEPatient: MARLENI DENNIS Exam Date: 03/16/2022 : 1950 Gender:F Ordering : JOHN LUTHER Admission #: [id number] Family : DR JACK VOGT M.D. Order #: [id number] CLICK HERE TO VIEW EXAM ECHOCARDIOGRAM REPORT [...] by: Sachin Aguilera M.D. on 03/16/2022 at 16:36[facility]red Hospital LimaBNPon [id number] peptide B (Bld) [Mass/Vol]553.0 pg/mLNormal <=900.0The [facility] CenterComment on above:Performed By: #### BNP, BMP ####[facility] [address] [place], [place] [address]Dr. Yilan ChangPROF CHEM 8 (BAS METB)on 99-68-7900Wpwpx gap [Moles/Vol]14.9 mmol/L NormalThe [facility] Medical CenterComment on above:Performed By: #### BNP, BMP ####[facility] [address] [place], [place] [address]Dr. Yilan ChangCalcium [Mass/Vol]9.1 mg/dLNormal8.5-10.1The [facility] CenterComment on above:Performed By: #### BNP, BMP ####[facility] [address] [place], [place] [address]Dr. Yilan ChangChloride [Moles/Vol]102 mmol/L Qvoksc33-548Jjo [facility] CenterComment on above:Performed By: #### BNP, BMP ####[facility] [address] [place], [place] [address]Dr. Yilan ChangCO2 [Moles/Vol]27.7 mmol/MGeyevh85.0-32.0The [facility] CenterComment on above:Performed By: #### BNP, BMP ####[facility] [address] [place], [place] [address]Dr. Yilan ChangCreatinine [Mass/Vol]1.80 mg/dL Critically high0.55-1.02The [facility] CenterComment on above:Performed By: #### BNP, BMP ####[facility] [address] [place], [place] [address]Dr. Yilan ChangEGFR-AF XBLWWVYP69 mL/min/1.77t0Hyxkrjpuwd low>=60The [facility] CenterComment on above:Performed By: #### BNP, BMP ####[facility] [address]amiy[address] [place], [place] [address]Dr. Yilan ChangEGFR- NON AF HIUYAEKT24 mL/min/1.73f9Anmmlwzqdh low>=60The [facility] CenterComment on above:Performed By: #### BNP, BMP ####[facility] [address] [place], [place] [address]Dr. Yilan ChangGlucose [Mass/Vol]107 mg/dL Critically eirl48-660Sdh [facility] CenterComment on above:Performed By: #### BNP, BMP ####[facility] [address] [place], [place] [address]Dr. Yilan ChangPotassium [Moles/Vol]3.6 mmol/LNormal3.5-5.1The [facility] CenterComment on above:Performed By: #### BNP, BMP ####[facility] [address] [place], [place] [address]Dr. Yilan ChangSodium [Moles/Vol]141 mmol/DEzzpfv706-434Oqu [facility] CenterComment on above: Performed By: #### BNP, BMP ####[facility] [address] [place], [place] [address]Dr. Yilan ChangUrea nitrogen [Mass/Vol]33.0 mg/dL Critically high7.0-18.0The [facility] CenterComment on above:Performed By: #### BNP, BMP ####[facility] [address] [place], [place] [address]Dr. Yilan ChangUrea nitrogen/Creatinine [Mass ratio]18.3 mg/mgNormalThe [facility] CenterComment on above:Performed By: #### BNP, BMP ####[facility] [address] [place], [place] [address]Dr. Aryan PettyUS KIDNEYSon [id number] KIDNEYSEXAMINATION: US KIDNEYS HISTORY: Kidney lesion COMPARISON: [...] Electronically authenticated by: HENRY WALL Date: 2022-02-22 17:[address] [place], [place] [address]VC VENOUS REFLUX TEJ LMMayo Clinic Arizona ([place]) [id number] VENOUS REFLUX TEJ LMT Patient: MARLENI DENNIS Exam Date: 02/16/2022 : 1950 Gender:F Ordering : JOHN LUTHER Admission #: [id number] Family : Order #: [id number] CLICK HERE TO VIEW EXAM RADIOLOGY REPORT [...] proximal SSV. Flow: Mild deep venous reflux. Hand Binder Cutter: Dist/med calf 3.3 mm with 0.3s [...] Normal. Flow: Mild deep venous reflux noted. Hand Binder Cutter: Mid/medial calf 3.1mm, 2.9s. Dist/med calf [...] by: Henry Wall MD on 02/16/2022 at 11:49[facility] CAROTID ART BILon [id number] CAROTID ART BILEXAMINATION: US CAROTID ART TEJ [...] Electronically authenticated by: TONYA GARCIA Date: 2022-02-04 17:45[facility]red Hospital LimaUS WALTER DOP LEG BILon [id number] WALTER DOP LEG BILEXAM: US WALTER DOP [...] Electronically authenticated by: JERRICA HOLDEN Date: 2022-02-04 16:34[facility] Hospital LimaBNPon [id number] peptide B (Bld) [Mass/Vol]620.0 pg/mLNormal<=900.0The [facility] CenterComment on above:Performed By: #### BNP, BMP, LIPID ####[facility] [address] [address]Dr. Yilan ChangLIPID PROFILEon [id number]-HDL RATIO NORMSEE BELOWNormal The [facility] CenterComment on above:Result Comment: 3.3 - 4.4 LOW RISK 4.4 - 7.1 AVERAGE RISK 7.1 - 11.0 MODERATE RISK >11.0 HIGH RISKPerformed By: #### BNP, BMP, LIPID ####[facility] [address] [place], [place] [address]Dr. Yilan ChangCholesterol [Mass/Vol]148 mg/dLNormal<=200The [facility] CenterComment on above:Performed By: #### BNP, BMP, LIPID ####[facility] [address] [place], [place] [address]Dr. Yilan Petty Cholesterol in HDL [Mass/Vol]25 mg/dLCritically fvk85-17PhkOhiohealth O'Bleness Hospital Comment on above:Performed By: #### BNP, BMP, LIPID ####[facility] [address] [place], [place] [address]Dr. Yilan ChangCholesterol in LDL [Mass/Vol]80.8 mg/dLKindred Hospital LimaComment on above:Performed By: #### BNP, BMP, LIPID ####[facility] [address] [place], [place] [address]Dr. Yilan ChangCholesterol.total/Cholesterol in HDL [Mass ratio]5.9 {ratio}NormalOhiohealth O'Bleness HospitalComment on above:Performed By: #### BNP, BMP, LIPID ####[facility] [address] [place], [place] [address]Dr. Yilan ChangHDL NORMAL> or = 60 mg/dl - LOW CARDIOVASCULAR RISK <40 mg/dl - HIGH CARDIOVASCULAR RISKKindred Hospital LimaComment on above:Performed By: #### BNP, BMP, LIPID ####[facility] [address] [place], [place] [address]Dr. Yilan ChangLDL CALC NORMALSEE BELOWKindred Hospital LimaComment on above:Result Comment: <100 mg/dl OPTIMAL 100 - 129 mg/dl NEAR OR ABOVE OPTIMAL 130 - 159 mg/dl BORDERLINE HIGH 160 - 189 mg/dl HIGH >190 mg/dl VERY HIGHPerformed By: #### BNP, BMP, LIPID ####[facility] [address] [place] [address]Dr. Yilan ChangTriglyceride [Mass/Vol]211 mg/dLCritically high<=150The [facility] Medical CenterComment on above:Performed By: #### BNP, BMP, LIPID ####[facility] [address]pt[address]xvrmf[address] [place] [address]Dr. Yilan ChangVLDL CALC42.2 mg/dLNormalThe [facility] St[facility] John Medical CenterComment on above: Performed By: #### BNP, BMP, LIPID ####[facility] [address]qd[address] [place] [address]Dr. Yilan ChangPROF CHEM 8 (BAS METB)on 78-43-3345Pbprr gap [Moles/Vol]14.7 mmol/LNormalThe [facility] Medical CenterComment on above:Performed By: #### BNP, BMP, LIPID ####[facility] [address]ms[address] [place] [address]Dr. Yilan ChangCalcium [Mass/Vol]8.7 mg/dL Normal8.5-10.1The [facility] CenterComsparrow ionia hospital on above:Performed By: #### BNP, BMP, LIPID ####[facility] [address]ryswmrvpa[address] [place] [address]Dr. Yilan ChangChloride [Moles/Vol]104 mmol/QBpdbbf64-742Tfw [facility] CenterComment on above:Performed By: #### BNP, BMP, LIPID ####[facility] [address]wq[address] [place] [address]Dr. Yilan ChangCO2 [Moles/Vol]26.0 mmol/HQftyyn11.0-32.0The [facility] Medical CenterComment on above: Performed By: #### BNP, BMP, LIPID ####[facility] [address]onaanbhfg[address] [place] [address]Dr. Yilan ChangCreatinine [Mass/Vol]2.91 mg/dL Critically high0.55-1.02The [facility] Medical CenterComment on above:Performed By: #### BNP, BMP, LIPID ####[facility] [address]dsldmcubi[address] [place] [address]Dr. Yilan ChangEGFR-AF WEMULOUL00 mL/min/1.31m4Gczpvdlway low>=60The [facility] Medical CenterComment on above:Performed By: #### BNP, BMP, LIPID ####[facility] Qjmdytthvc[address] [place] [address]Dr. Yilan ChangEGFR-NON AF QRRQSFMG80 mL/min/1.81b2Ahppmgowdu low>=60The [facility] Medical CenterComment on above:Performed By: #### BNP, BMP, LIPID ####[facility] Ikdynpuqgv[address] [place], [place] [address]Dr. Yilan Petty Glucose [Mass/Vol]110 mg/dLCritically esuy64-799Mzv [facility] CenterComsparrow ionia hospital on above:Performed By: #### BNP, BMP, LIPID ####[facility] D[address] [place], [place] [address]Dr. Yilan ChangPotassium [Moles/Vol]3.7 mmol/LNormal3.5-5.1The [facility] CenterComsparrow ionia hospital on above:Performed By: #### BNP, BMP, LIPID ####[facility] U[address]heb[address] [place], [place] [address]Dr. Yilan ChangSodium [Moles/Vol]141 mmol/LMvklpz767-458Qqc [facility] on above:Performed By: #### BNP, BMP, LIPID ####[facility] Ntdfqnrefp[address] [place], [place] [address]Dr. Yilan ChangUrea nitrogen [Mass/Vol]51.0 mg/dLCritically high7.0-18.0The [facility] CenterComment on above:Performed By: #### BNP, BMP, LIPID ####[facility] [address]qknlqeyzs[address] [place], [place] [address]Dr. Yilan ChangUrea nitrogen/Creatinine [Mass ratio]17.5 mg/mgNormalThe [facility] CenterComment on above:Performed By: #### BNP, BMP, LIPID ####[facility] [address] [place], [place] [address]Rm. Aryan JovannyHartford Hospital Metabolic Panel Reflex Mgon 68-56-3968Azqyu gap 3 molar conc10 mmol/LNormal7-13[facility] HospitalCalcium mass conc8.2 mg/dLLow8.6-10.2MPeak View Behavioral HealthChloride molar ixqy205 mmol/LCritically ymme48-270SebxaLongs Peak HospitalCO2 molar conc25 mmol/CUqbmtu16-75SvrxpLongs Peak HospitalCreatinine mass conc1.21 mg/dLCritically high0.50-0.90[facility] HospitalGFR/1.73 sq M predicted among blacks MDRD vol rate/area (S/P/Bld)53.4 mL/min/{1.73_m2}Low>60 [facility] HospitalComment on above:Result Comment: >60 mL/min/1.73m2 EGFR, calc. for ages 18 and older using theMDRD formula (not corrected for weight), is valid for stablerenal function.GFR/1.73 sq M.predicted MDRD vol rate/area44.2 mL/min/{1.73_m2}Low>60[facility] HospitalComment on above:Result Comment: >60 mL/min/1.73m2 EGFR, calc. for ages 18 and older using theMDRD formula (not corrected for weight), is valid for stablerenal function. Glucose mass wwmg684 mg/dLCritically zncp52-018HiqpaLongs Peak Hospital Potassium reflex Mg3.6 mEq/LNormal3.5-5.1MSt. Anthony North Health Campusodium molar pjoe400 mmol/RBpgwkw502-048HcgcjLongs Peak HospitalUrea nitrogen mass conc26 mg/dLCritically high8-23[facility] HospitalCBC With Platelet and Differentialon 80-81-2917Gclzkbazp Auto #/vol (Bld)0.1 10*3/uLNormal0.0-0.2 [facility] HospitalBasophils/100 WBC Auto (Bld)0.7 %[facility] NorthEosinophils Auto #/vol (Bld)0.3 10*3/uLNormal0.0-0.7[facility] HospitalEosinophils/100 WBC Auto (Bld)3.1 %[facility] Hospital NorthErythrocyte distribution width Auto Ratio (RBC)13.4 %Normal 11.5-14.5[facility] HospitalHematocrit Auto Volume Fraction (Bld)34.6 %Low37.0-47.0[facility] HospitalHemoglobin mass conc (Bld)12.0 g/dL Dayfki21.0-16.0[facility] HospitalLymphocytes Auto #/vol (Bld)2.3 10*3/uLNormal1.0-4.8[facility] HospitalLymphocytes/100 WBC Auto (Bld) 24.2 %[facility] HospitalH Auto Entitic mass (RBC)33.0 pg Critically high27.0-31.3MSCL Health Community Hospital - NorthglennHC Auto mass conc (RBC) 34.6 %Vzfjhc96.0-37.0[facility] HospitalMCV Auto Entitic volume (RBC) 95.4 lELfxyqr41.0-100.0[facility] HospitalMonocytes Auto #/vol (Bld) 0.9 10*3/uLCritically high0.2-0.8[facility] HospitalMonocytes/100 WBC Auto (Bld)9.8 %[facility] Hospital NorthNeutrophils Auto #/vol (Bld) 5.9 10*3/uLNormal1.4-6.5[facility] HospitalNeutrophils/100 WBC Auto (Bld)62.2 %[facility] Hospital NorthPlatelets Auto #/vol (Bld)139 10*3/zTNzklxp564-321IlpyxLongs Peak HospitalRBC Auto #/vol (Bld)3.62 10*6/uLLow4.20-5.40[facility] HospitalWBC Auto #/vol (Bld)9.5 10*3/uL Normal4.8-10.8[facility] HospitalBasic Metabolic Panelon 06-06-2018 Anion gap 3 molar conc11 mmol/LNormal7-13[facility] HospitalCalcium mass conc8.3 mg/dLLow8.6-10.2MPeak View Behavioral HealthChloride molar jvfh832 mmol/NGlqjbj52-959McbhkLongs Peak HospitalCO2 molar conc26 mmol/LNormal 22-29[facility] HospitalCreatinine mass conc1.90 mg/dLCritically high 0.50-0.90[facility] HospitalGFR/1.73 sq M predicted among blacks MDRD vol rate/area (S/P/Bld)31.8 mL/min/{1.73_m2}Low>60[facility] Comment on above:Result Comment: >60 mL/min/1.73m2 EGFR, calc. for ages 18 and older using theMDRD formula (not corrected for weight), is valid for stablerenal function.GFR/1.73 sq M.predicted MDRD vol rate/area26.2 mL/min/{1.73_m2}Low>60 [facility] HospitalComment on above:Result Comment: >60 mL/min/1.73m2 EGFR, calc. for ages 18 and older using theMDRD formula (not corrected for weight), is valid for stablerenal function.Glucose mass cefa556 mg/dLCritically eijo26-859WeeqnLongs Peak HospitalPotassium molar conc4.1 mmol/LNormal 3.5-5.1MSt. Anthony North Health Campusodium molar znea539 mmol/CWjtkna774-544 [facility] HospitalUrea nitrogen mass conc25 mg/dLCritically high8-23 [facility] HospitalCBC With Platelet and Differentialon 06-06-2018 Basophils Auto #/vol (Bld)0.0 10*3/uLNormal0.0-0.2MPeak View Behavioral Health Basophils/100 WBC Auto (Bld)0.1 %NormalLongs Peak HospitalEosinophils Auto #/vol (Bld)0.0 10*3/uLNormal0.0-0.7[facility] Eosinophils/100 WBC Auto (Bld)0.0 %[facility] Erythrocyte distribution width Auto Ratio (RBC)13.5 %Azmufb32.5-14.5[facility] HospitalHematocrit Auto Volume Fraction (Bld)35.0 %Low37.0-47.0 [facility] HospitalHemoglobin mass conc (Bld)12.0 g/oFGgedyn13.0-16.0 [facility] HospitalLymphocytes Auto #/vol (Bld)1.0 10*3/uLNormal 1.0-4.8[facility] HospitalLymphocytes/100 WBC Auto (Bld)8.2 %Normal [facility] HospitalH Auto Entitic mass (RBC)32.8 pgCritically high 27.0-31.3MSCL Health Community Hospital - NorthglennHC Auto mass conc (RBC)34.4 %Normal 33.0-37.0[facility] HospitalMCV Auto Entitic volume (RBC)95.3 fLNormal 82.0-100.0[facility] HospitalMonocytes Auto #/vol (Bld)1.0 10*3/uL Critically high0.2-0.8[facility] HospitalMonocytes/100 WBC Auto (Bld) 8.0 %[facility] NorthNeutrophils Auto #/vol (Bld)10.1 10*3/uL Critically high1.4-6.5[facility] HospitalNeutrophils/100 WBC Auto (Bld)83.7 %[facility] Hospital NorthPlatelets Auto #/vol (Bld)146 10*3/kMBsdtmj606-975WsufdLongs Peak HospitalRBC Auto #/vol (Bld)3.67 10*6/uLLow4.20-5.40[facility] HospitalWBC Auto #/vol (Bld)12.1 10*3/uL Critically high4.8-10.8[facility] HospitalXR CHEST (2 VW)on 06-06-2018 XR CHEST [...] Interpreted b y:ANDRA Dominguezigned by:Joss Casas MD06/06/18Final resultNormalLongs Peak HospitalBasic Metabolic Panel Reflex Mgon 71-82-8077Jrycr gap 3 molar conc11 mmol/LNormal7-13[facility] HospitalCalcium mass conc8.9 mg/dLNormal8.6-10.2MPeak View Behavioral HealthChloride molar pmll752 mmol/L Tuigro43-878TbxsxLongs Peak HospitalCO2 molar conc25 mmol/VWhqxhl42-14XgtsdLongs Peak HospitalCreatinine mass conc0.86 mg/dLNormal0.50-0.90[facility] HospitalGFR/1.73 sq M predicted among blacks MDRD vol rate/area (S/P/Bld)mL/min/{1.73_m2}Normal>60[facility] HospitalComment on above: Result Comment: >60 mL/min/1.73m2 EGFR, calc. for ages 18 and older using theMDRD formula (not corrected for weight), is valid for stablerenal function. GFR/1.73 sq M.predicted MDRD vol rate/areamL/min/{1.73_m2}Normal>60[facility] HospitalComment on above:Result Comment: >60 mL/min/1.73m2 EGFR, calc. for ages 18 and older using theMDRD formula (not corrected for weight), is valid for stablerenal function.Glucose mass dgqr190 mg/dLCritically adti37-316 [facility] HospitalPotassium reflex Mg4.0 mEq/LNormal3.5-5.1MSt. Anthony North Health Campusodium molar ravy816 mmol/SOrmteh243-501TatiaLongs Peak HospitalUrea nitrogen mass conc13 mg/dLNormal8-23[facility] HospitalCBC With Platelet and Differentialon 51-67-1842EQS morphology finding Nom (Bld)NormalNormMemorial Hospital CentralPlatelet Slide ReviewNormalNormal [facility] HospitalBasophils Auto #/vol (Bld)0.1 10*3/uLNormal0.0-0.2 [facility] HospitalBasophils/100 WBC Auto (Bld)1.0 %NormalLongs Peak HospitalEosinophils Auto #/vol (Bld)0.0 10*3/uLNormal0.0-0.7[facility] HospitalEosinophils/100 WBC Auto (Bld)0.4 %NormalLongs Peak HospitalErythrocyte distribution width Auto Ratio (RBC)13.5 %Normal 11.5-14.5[facility] HospitalHematocrit Auto Volume Fraction (Bld)40.5 %Wjnzjy52.0-47.0[facility] HospitalHemoglobin mass conc (Bld)13.7 g/dL Qutznn31.0-16.0[facility] HospitalLymphocytes Auto #/vol (Bld)2.0 10*3/uLNormal1.0-4.8[facility] HospitalLymphocytes/100 WBC Auto (Bld) 15.5 %NormalPikes Peak Regional HospitalH Auto Entitic mass (RBC)32.4 pg Critically high27.0-31.3[facility] HospitalHC Auto mass conc (RBC) 33.9 %Anfwhp68.0-37.0[facility] HospitalMCV Auto Entitic volume (RBC) 95.6 fKKzhudj71.0-100.0[facility] HospitalMonocytes Auto #/vol (Bld) 1.3 10*3/uLCritically high0.2-0.8[facility] HospitalMonocytes/100 WBC Auto (Bld)10.1 %[facility] Hospital NorthNeutrophils Auto #/vol (Bld) 9.4 10*3/uLCritically high1.4-6.5[facility] HospitalNeutrophils/100 WBC Auto (Bld)73.0 %[facility] Hospital NorthPlatelets Auto #/vol (Bld)168 10*3/zGFbqorf909-937GjvpyLongs Peak HospitalRBC Auto #/vol (Bld) 4.24 10*6/uLNormal4.20-5.40[facility] HospitalWBC Auto #/vol (Bld)12.9 10*3/uLCritically high4.8-10.8[facility] HospitalPOCT Glucoseon 56-06-2301Mugliau mass mego072 mg/dLCritically onan25-154TqfseLongs Peak HospitalXR LUMBAR SPINE (2-3 VIEWS)on 98-29-0540GF LUMBAR SPINE (2-3 VIEWS) EXAMINATION: XR LUMBAR [...] L5-S1.Interpreted by:ANDRA Sotoigned by:Tanvir Power MD06/05/inal resultNormal [facility] HospitalBasic Metabolic Panel Reflex Mgon 86-79-8851Zodvw gap 3 molar conc13 mmol/LNormal7-13[facility] HospitalCalcium mass conc9.1 mg/dLNormal8.6-10.2MPeak View Behavioral HealthChloride molar lpro108 mmol/HLfqnzu72-715OnlcdLongs Peak HospitalCO2 molar conc23 mmol/LNormal 22-29[facility] HospitalCreatinine mass conc1.08 mg/dLCritically high 0.50-0.90[facility] HospitalGFR/1.73 sq M predicted among blacks MDRD vol rate/area (S/P/Bld)mL/min/{1.73_m2}Normal>60[facility] Comment on above:Result Comment: >60 mL/min/1.73m2 EGFR, calc. for ages 18 and older using theMDRD formula (not corrected for weight), is valid for stablerenal function.GFR/1.73 sq M.predicted MDRD vol rate/area50.4 mL/min/{1.73_m2}Low>60 [facility] HospitalComment on above:Result Comment: >60 mL/min/1.73m2 EGFR, calc. for ages 18 and older using theMDRD formula (not corrected for weight), is valid for stablerenal function.Glucose mass dsib427 mg/dLCritically lotk94-457ZnurfLongs Peak HospitalPotassium reflex Mg4.3 mEq/LNormal3.5-5.1 [facility] Hospitalodium molar gmrn863 mmol/AIcvosn820-163AxzkqLongs Peak HospitalUrea nitrogen mass conc21 mg/dLNormal8-23[facility] HospitalCBC With Platelet No Differentialon 33-25-5538Gmxtnmhfema distribution width Auto Ratio (RBC)13.4 %Uitqgg84.5-14.5[facility] HospitalHematocrit Auto Volume Fraction (Bld)44.5 %Xnyeha45.0-47.0[facility] HospitalHemoglobin mass conc (Bld)15.2 g/eCFdrsnq19.0-16.0[facility] HospitalH Auto Entitic mass (RBC)32.6 pgCritically high27.0-31.3MSCL Health Community Hospital - NorthglennHC Auto mass conc (RBC)34.3 %Cyxyrw59.0-37.0[facility] HospitalMCV Auto Entitic volume (RBC)95.1 lXFctyiq27.0-100.0[facility] HospitalPlatelets Auto #/vol (Bld)163 10*3/jYPrxpym223-627KjpccLongs Peak HospitalRBC Auto #/vol (Bld)4.68 10*6/uLNormal4.20-5.40[facility] HospitalWBC Auto #/vol (Bld)8.3 10*3/uLNormal4.8-10.8[facility] HospitalFLUORO FOR SURGICAL PROCEDURESon 79-99-8285HUSRAD FOR SURGICAL PROCEDURESEXAMINATION: Intraoperative lumbar fusion.CLINICAL HISTORY: [...] the soft tissue anterior to the spinal column.[place] bone intact.Please see procedural note for more detailed.IMPRESSION: INTRAOPERATIVE PLIF L3- L5.Interpreted by:ANDRA Dominguezigned by:Joss Casas MD06/04/inal resultNormalLongs Peak HospitalPOCT Glucoseon 62-99-9317Kitdewo mass botb035 mg/fZUobbrw05-947LeyjhLongs Peak HospitalPOC Performed onACCU-CHEK NormalSedgwick County Memorial Hospitalurgical Specimenon 69-93-2838Wodmnvtw SpecimenInvalid Interpretation [facility] HospitalComment on above:Result Comment: [facility] [address] [id number] [phone] SURGICAL PATHOLOGY REPORTPatient Name: MARLENI DENNIS Accession No: [id number] Age Sex: 1950 Location: [place] [id number] No: [id number] Collected: 06/04/2018Med Rec No: [id number] Received: 06/05/2018Attend Phys: SHAKA DESIRAE Completed: 06/07/2018Perform [...] two cassettes after a brief decalcification. ALDWA/SCDANCPT: [phone] A9MLJASRGIULIA ENGEL M.D. 06/07/2018 Electronically signed out by Page 1 of 1Basic Metabolic Panelon 04-49-0094Fdjna gap 3 molar conc14 mmol/LCritically high7-13 [facility] HospitalCalcium mass conc9.7 mg/dLNormal8.6-10.2MPeak View Behavioral HealthChloride molar pcwa219 mmol/SMfjorv16-768QllknLongs Peak HospitalCO2 molar conc25 mmol/LHonqmt39-75OkphbLongs Peak Hospital Creatinine mass conc1.15 mg/dLCritically high0.50-0.90[facility] HospitalGFR/1.73 sq M predicted among blacks MDRD vol rate/area (S/P/Bld)56.7 mL/min/{1.73_m2}Low>60[facility] HospitalComment on above:Result Comment: >60 mL/min/1.73m2 EGFR, calc. for ages 18 and older using theMDRD formula (not corrected for weight), is valid for stablerenal function.GFR/1.73 sq M.predicted MDRD vol rate/area46.8 mL/min/{1.73_m2}Low>60[facility] HospitalComment on above:Result Comment: >60 mL/min/1.73m2 EGFR, calc. for ages 18 and older using theMDRD formula (not corrected for weight), is valid for stablerenal function.Glucose mass kjym961 mg/zRGvzdzb25-834ZzeyfLongs Peak HospitalPotassium molar conc3.6 mmol/LNormal3.5-5.1MSt. Anthony North Health Campusodium molar mntn421 mmol/PWzcvjn476-902RiquzLongs Peak HospitalUrea nitrogen mass conc21 mg/dLNormal8-23[facility] HospitalCBC With Platelet No Differentialon 31-86-6142Ofeewwdgeur distribution width Auto Ratio (RBC)13.5 %Stqnbw94.5-14.5[facility] HospitalHematocrit Auto Volume Fraction (Bld)44.4 %Twygey76.0-47.0[facility] HospitalHemoglobin mass conc (Bld)15.5 g/bRBpzafr26.0-16.0[facility] HospitalH Auto Entitic mass (RBC)33.0 pgCritically high27.0-31.3MSCL Health Community Hospital - NorthglennHC Auto mass conc (RBC)34.9 %Ulnglw05.0-37.0[facility] HospitalMCV Auto Entitic volume (RBC)94.4 aYDclito10.0-100.0[facility] Platelets Auto #/vol (Bld)199 10*3/gRXpuziv220-920JufugLongs Peak Hospital RBC Auto #/vol (Bld)4.71 10*6/uLNormal4.20-5.40[facility] HospitalWBC Auto #/vol (Bld)7.0 10*3/uLNormal4.8-10.8[facility] HospitalCulture, MRSA Screenon [id number], MRSA ScreenORDER#: [id number] ORDERED BY: CLIFTON STONE: Nares Nasal COLLECTED: 05/23/18 11:37ANTIBIOTICS AT SERGIO.: RECEIVED : 05/23/18 11:37Culture, MRSA Screen FINAL 05/24/18 12:57 No MRSA isolatedMemorial Hospital NorthCulture, Urineon 05-23-2018 Culture, UrineORDER#: [id number] ORDERED BY: CLIFTON STONE: Urine Clean Catch COLLECTED: 05/23/18 12:44ANTIBIOTICS AT SERGIO.: RECEIVED : 05/23/18 12:44Culture, Urine FINAL 05/25/18 10:55 No growth 24 hoursNoNorthern Colorado Rehabilitation HospitalProthrombin Timeon 89-04-9993QUS Coag RelTime (PPP)1.1 {INR}Normal [facility] HospitalComment on above:Result Comment: Recommended INR therapeutic [...] 22.6 secProthrombin time (PT) Coag time (PPP)11.0 sNormal9.6-12.3MPeak View Behavioral HealthType and Screen Capture 3 scrn cellon 80-95-6391Zpgkffopw mass concPATIENT: WENDY ANDRADE LOC: DAYSIRUTH# : [id number] : 1950 SEX: FORDERED BY: CHASE Lua ORDERED : 05/23/2018 09:33 COLLECTED: 05/23/2018 11:41ORDER : [id number] RECEIVED : 05/23/2018 11:41 ---TEST NAME RESULT UNITS RANGES ABN FL STABORH Capture AB POS FAntibody 3 Cell Scrn Captu NEG F---- Normal [facility] HospitalUrinalysis, reflex to cultureon 65-69-2685Djwcx Reflexed to CultureYESNormMemorial Hospital CentralBilirubin Ql (U) NegativeNormalNegativeLongs Peak HospitalClarity Nom (U)ClearNormal ClearLongs Peak HospitalColor Nom (U)YellowNormalStraw/YellLongs Peak HospitalGlucose Ql (U)NegativeNormalNegSaint Joseph HospitalHemoglobin Test strip Ql (U)NegativeNormalNegativeLongs Peak HospitalKetones Ql (U)TRACEAbnormalNegSaint Joseph Hospital Leukocyte esterase Test strip Ql (U)TRACEAbnormalNegSaint Joseph HospitalNitrite Test strip Ql (U)NegativermalNegSaint Joseph HospitalpH Test strip (U)6.0 [pH]Normal5.0-9.0[facility] HospitalProtein Test strip Ql (U)TRACEAbrmalNegPioneers Medical Centerpecific gravity Relative Density (U)1.218Ocvviz1.005-1.03[facility] Urobilinogen Test strip Qn (U)0.2 {Dago'U}/dLNormal< 2.0[facility] HospitalUrine Microscopicon 35-46-2195Iurpn LM.LPF #/area (Urine sed)0-1 HyalineNormalLongs Peak HospitalRBC Test strip #/vol (U)5-1Eqmljk3-3 [facility] HospitalUrine Amorphous1+NormalLongs Peak HospitalWBC #/vol (U)9-2Gppckw9-[address] [place], [place] [address]XR SPINE ENTIRE (2-3 VIEWS)on 03-69-4356NH SPINE ENTIRE (2-3 VIEWS)PREOP NO DICTATION Interpreted by: Barb Wetzel MD Signed by: Barb Wetzel MD 06/08/18 Final resultNoNorthern Colorado Rehabilitation Hospital Vital Signs Date TimeVital SignValuePerforming RrhlybznnDyvpqvoy16-83-5530 13:28-0400Body ttlqlnfmarn57.5 [degF]Ana Rosamally Gonzalez 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 Work Phone: [phone] [place], [place] [address]Qxpwasmese33-43-3910 13:28-0400Diastolic blood mm[Hg]Ana Rosa Hardy 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 Work Phone: [phone] [address]-10-2025 13:28-0400Heart rate66 /min 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 Work Phone: [phone] [place], [place] [address]Jbucxuccpg30-80-9898 13:28-4896MdF3% (BldA) [Mass fraction]98 %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 Work Phone: [phone] HealthLhfdevzmia84-54-0258 13:28-0400Systolic blood buvqzhoz076 mm[Hg]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 Work Phone: [phone] HealthVwlfjmgatz06-31-4790 11:14-0400Body wfxihk908.5 cmJack Vogt MD Work Phone: [facility] HealthIzxfnuwmnb69-40-0864 11:14-0400Body mass index (BMI) [Ratio]23.59 kg/m5PeljxtJack Vogt MD Work Phone: [phone] [place], [place] [address]Zfrjysvasv52-85-2494 11:14-0400Body sjpwak81.51 kgJack Vogt MD Work Phone: [phone] HealthWarobhgjaz70-85-2434 11:14-0400Diastolic blood nemzgkqw18 mm[Hg]Jack Vogt MD Work Phone: [facility] HealthUxzgmxefvb28-20-2709 11:14-0400Heart rate57 /min Jack Vogt MD Work Phone: [facility] HealthYelbfyvvhe57-91-5379 11:14-3906BzR3% (BldA) [Mass fraction]98 %Jack Vogt MD Work Phone: [phone] [place], [place] 7593509-22-2025 11:14-0400Systolic blood bwypoefs632 mm[Hg]Jack Vogt MD Work Phone: [phone] [place], [place] 7593507-25-2025 12:14-0400Body xswdhaozifx39 [degF]Jack Vogt II Work Phone: [phone] [place], [place] 2844207-25-2025 12:14-0400 Diastolic blood htbortce01 mm[Hg]Jack Vogt II Work Phone: [phone] [place], [place] 2844207-25-2025 12:14-0400 Heart rate66 /Cora Vogt II Work Phone: [phone] [place], [place] 2844207-25-2025 12:14-0400 Respiratory rate18 /Cora Vogt II Work Phone: [phone] [place], [place] 2844207-25-2025 12:14-0400 SaO2% (BldA) [Mass fraction]90 %Jack Vogt II Work Phone: [phone] [place], [place] 2844207-25-2025 12:14-0400 Systolic blood gqwcaewj625 mm[Hg]Jack Vogt II Work Phone: [phone] [place], [place] 2844207-25-2025 04:55-0400 Body zojrin40.4 kgDabambi Vogt II Work Phone: [phone] [place], [place] 2844207-24-2025 07:28-0400 Inhaled oxygen flow rate3 L/Cora Vogt II Work Phone: [phone] [place], [place] 2844207-23-2025 02:12-0400 Body pvemxe116.94 cmDabambi Vogt II Work Phone: [phone] [place], [place] 2844207-23-2025 01:25-0400 SaO2% (BldA) [Mass fraction]96 %Jack Vogt II Work Phone: [phone] [place], [place] 2844207-23-2025 01:09-0400 Diastolic blood refuryan48 mm[Hg]Jack Vogt II Work Phone: [facility]07-23-2025 01:09-0400 Heart rate71 /minDadonisel Vogt II Work Phone: 1(765)375-[address] [place], [place] [id number] 01:09-0400 Inhaled oxygen flow rate2 L/Leandroel Vogt II Work Phone: 1(272)[phone] [place], [place] [id number] 01:09-0400 Respiratory rate18 /minDadonisel Vogt II Work Phone: 1(074)[phone] [place], [place] [id number] 01:09-0400 Systolic blood nejnpckg014 mm[Hg]Jack Vogt II Work Phone: 1(767)[phone] [place], [place] [id number] 18:56-0400 Body ofajtyhkbkj88.5 [degF]Jack Vogt II Work Phone: 1([phone] [place], [place] [id number] 17:59-0400 Body empifu272.94 cmDasherleyel Vogt II Work Phone: 1(021)[phone] [place], [place] [id number] 17:59-0400 Body oboghd35.77 kgDasherleyel Vogt II Work Phone: 1([phone])064-[address] [place], [place] [id number] 16:22-0400 Diastolic blood vbtufgzo65 mm[Hg]Jack Vogt II Work Phone: 1(127)565-[address] [place], [place] [id number] 16:22-0400 Systolic blood vqxfeusg964 mm[Hg]Jack Vogt II Work Phone: 1(574)086-[address] [place], [place] 6293407-22-2025 16:02-0400 Body mykqco762.94 cmDasherleyel Vogt II Work Phone: 1(471)361-[address] [place], [place] 6293407-22-2025 16:02-0400 Body mass index (BMI) [Ratio]27.3 kg/o3Gxeihs Vogt II Work Phone: 1([phone] [place] 6293407-22-2025 16:02-0400 Body zmynbu25.77 kgDaniel Vogt II Work Phone: [facility]07-22-2025 16:02-0400 Heart rate63 /Cora Vogt II Work Phone: [facility]07-22-2025 16:02-0400 Respiratory rate16 /Cora Votg II Work Phone: [facility]07-22-2025 16:02-0400 SaO2% (BldA) [Mass fraction]99 %Jack Vogt II Work Phone: [facility]07-16-2025 14:31-0400 Body adkgdlzxhat68.5 [degF]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 Work Phone: [facility]Xtvfnjgpqz30-28-6442 14:31-0400Heart rate58 /min 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 Work Phone: [facility] HealthDijrnrbivg61-13-1469 14:31-9833IdB7% (BldA) [Mass fraction]98 %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 Work Phone: [facility] HealthSgxajoiwjj21-77-4164 16:44-0400Body .5 cmJack Vogt MD Work Phone: [facility] HealthMdpqphezdx76-60-6379 16:44-0400Body mass index (BMI) [Ratio]26.34 kg/c8ComjyyJack Vogt MD Work Phone: [facility] HealthQnneldbqfy60-52-5610 16:44-0400Body nmkule25.32 kgJack Vogt MD Work Phone: [facility] HealthIbottzcbgg40-81-9362 16:44-0400Diastolic blood whiiekbh93 mm[Hg]Jack Vogt MD Work Phone: [facility] WashingtonOfkrlsomwi62-26-0709 16:44-0400Heart rate76 /min Jack Vogt MD Work Phone: [facility] HealthInhqybvrdx97-23-1342 16:44-9656QtI0% (BldA) [Mass fraction]99 %Jack Vogt MD Work Phone: [facility] HealthIvqitqkish50-81-8094 16:44-0400Systolic blood zdxsfhni350 mm[Hg]Jack Vogt MD Work Phone: [facility] HealthFrtijnuprk19-74-5244 11:40-0400Body tnebdr601.5 cmSoxana Moncada 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 Work Phone: [facility] HealthGmazazntuq02-77-3430 11:40-0400Body mass index (BMI) [Ratio]26.89 kg/s2AgoehvRenetta Moncada 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 Work Phone: [phone] HealthFmemllzquy82-80-7002 11:40-0400Body fyegnd77.68 kgRenetta Moncada 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 Work Phone: [phone] [place], [place] [address]Yzejqmytfu18-99-5119 11:40-0400Diastolic blood pmhpvemp34 mm[Hg]Renetta Moncada 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 Work Phone: [facility] HealthIbmefeqqgc50-15-8031 11:40-0400Heart rate74 /min Renetta Moncada 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 Work Phone: [phone] [place], [place] [address]Udmxhhuovc50-01-5234 11:40-0400Respiratory rate16 /minSoxana Moncada 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 Work Phone: 1([phone] [place], [place] [address]Rizdjyybtv63-94-3990 11:40-7575FoI7% (BldA) [Mass fraction]97 %Renetta Moncada 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 Work Phone: [facility] HealthVeurpzhtvc15-10-2846 11:40-0400Systolic blood dvivoiiw565 mm[Hg]Renetta Moncada 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 Work Phone: [phone] [place], [place] [address]Gwbqwqdpqz82-75-6325 09:40-0400Body ajhlav651.8 cmJack Vogt MD Work Phone: [phone] [place], [place] [address]Jugxnxrglc33-96-2749 09:40-0400Body mass index (BMI) [Ratio]28.08 kg/d7HfdtugJack Vogt MD Work Phone: [phone] HealthPglgydhipv65-80-9667 09:40-0400Body tttvba14.76 kgJack Vogt MD Work Phone: [phone] WashingtonDasisitwkg49-98-1343 09:40-0400Diastolic blood msuhoixz84 mm[Hg]Jack Vogt MD Work Phone: [facility] WashingtonWmxbpnvpiq56-19-7800 09:40-0400Heart rate62 /min Jack Vogt MD Work Phone: [facility] WashingtonBfpsugtonx24-56-3474 09:40-3772DzA8% (BldA) [Mass fraction]96 %Jack Vogt MD Work Phone: [facility] WashingtonUvivrvroym70-59-8924 09:40-0400Systolic blood ppvikhcg125 mm[Hg]Jack Vogt MD Work Phone: [facility] WashingtonDbqxobxsmy89-14-4224 11:41-0400Body uwdkeh094.8 cmDabambi Vogt MD Work Phone: [phone] WashingtonBvfizcrlzd94-52-2553 11:41-0400Body mass index (BMI) [Ratio]28.44 kg/l3HqlwvlJack Vogt MD Work Phone: [phone] WashingtonBzyprhkoiz21-45-3156 11:41-0400Body ldsveq58.67 kgJack Vogt MD Work Phone: [facility] WashingtonEajbwmzoyx19-97-4663 11:41-0400Diastolic blood eppbyuzv81 mm[Hg]Jack Vogt MD Work Phone: [facility] WashingtonMegcbstoej13-88-4377 11:41-0400Heart rate65 /min Jack Vogt MD Work Phone: [facility] WashingtonMtcxwonhlm62-78-7365 11:41-6500LcL1% (BldA) [Mass fraction]96 %Jack Vogt MD Work Phone: [facility] WashingtonEphaynxfyh31-62-7047 11:41-0400Systolic blood uikynwco297 mm[Hg]Jack Vogt MD Work Phone: [facility] WashingtonMzkptsmiqi91-64-8578 13:19-0500Blood Pressure Elsi CARDENAS [facility]03-03-2025 13:19-0500Body hecnkevmxyr21.6 [degF]Alfredo CARDENAS [facility]03-03-2025 13:19-0500Diastolic blood mm[Hg]Alfredo CARDENAS [facility]03-03-2025 13:19-0500Heart rate70 /minPatrick CARDENAS [facility]03-03-2025 13:19-0500Respiratory rate16 /minPatrick CARDENAS [facility]03-03-2025 13:19-0500Systolic blood mm[Hg]Alfredo CARDENAS [facility]03-07-2024 14:31-0500Body dhyoqj263.02 cmII Jack Vogt Work Phone: [facility]03-07-2024 14:31-0500 Body mass index (BMI) [Ratio]31 kg/m2II Jack Vogt Work Phone: [facility]03-07-2024 14:31-0500 Body fuqmnc55.46 kgII Jack Vogt Work Phone: [facility]02-05-2024 12:31-0500 Blood Pressure LocationPatrick CARDENAS [facility]02-05-2024 12:31-0500Diastolic blood bonmbzvd59 mm[Hg]Alfredo CARDENAS [facility]02-05-2024 12:31-0500Heart rate62 /minPatrick CARDENAS [facility]02-05-2024 12:31-0500Respiratory rate16 /minPatrick CARDENAS [facility]02-05-2024 12:31-0500Systolic blood picexmyl814 mm[Hg]Alfredo CARDENAS [facility]01-09-2023 12:59-0500Blood Pressure LocationPatrick CARDENAS [facility]01-09-2023 12:59-0500Diastolic blood mm[Hg]Alfredo CARDENAS [facility]01-09-2023 12:59-0500Heart rate78 /minPatrick CARDENAS [facility]01-09-2023 12:59-0500Respiratory rate16 /minPatrick CARDENAS [facility]01-09-2023 12:59-0500Systolic blood hezrafse076 mm[Hg]Alfredo CARDENAS [facility]06-17-2022 10:16-0400Blood Pressure LocationPatrick CARDENAS [facility] 06-17-2022 10:16-0400Diastolic blood otjtwwen07 mm[Hg] Alfredocodi CARDENAS [facility] 06-17-2022 10:16-0400Heart rate56 /minPatrick CARDENAS [facility] 06-17-2022 10:16-0400Respiratory rate16 /minPatrick froodies GmbH [facility] 06-17-2022 10:16-0400Systolic blood bfycyest076 mm[Hg] Alfredo CAREDNAS [facility] Encounters Encounter DateEncounter TypeCare ProviderFacilityStart: 05-67-5878hmjzdjxgor Alfredo CARDENASFacility:DARREL BellevueStart: 07-09-2025 End: 93-13-3237Asmpujcdq Result EncounterGeneric External Data ProviderNOMS External Department UnsolicitedStart: 07-09-2025 End: 62-41-4987Pvmqjdwtk Result EncounterGeneric External Data ProviderNOMS External Department UnsolicitedStart: 06-27-2025 End: 13-22-3250Svuttygak encounterDejose Gonzalez NP Work Phone: [facility] ACOStart: 06-27-2025 End: 00-85-7241Nice visit est pt mod-hi severity 40 minutesDejose Gonzalez 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 Work Phone: noms [facility] ACOComment on above:Chronic kidney disease, stage 4 (severe) (HCC) (Primary Dx); Chronic diastolic congestive heart failure (HCC); Atherosclerosis of shosh[place]ai[place] 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 MedinceStart: 06-09-2025 End: 94-85-7382Uplrcbshruthi Vogt MD Work Phone: noms [facility] MedinceStart: 06-09-2025 End: 27-97-7494Eijysmfbp Result EncounterJack Vogt MD Work Phone: noms External Department UnsolicitedStart: 06-09-2025 End: 53-55-0508Eapemc outpatient visit 40 minutesJack Vogt MD Work Phone: 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 ; Chronic diastolic congestive heart failure (HCC); HypokalemiaStart: 06-09-2025 End: 25-09-5062rpqhidaysnSBNVTQ B BERRYNot AvailableStart: 04-08-2025 End: 69-74-6447Fpvfcwlhhp and management of inpatientObaydsandra Valdez MD-[address] [place] [address] Work Phone: Start: 17-65-2301Bgo-patient / Non-visitJolala Arrington MD-[facility] Work Phone: Start: 04-08-2025 End: 61-12-1173ydxncnfxtmSoybai Berry II Work Phone: [facility] Work Phone: Start: 04-08-2025 End: 73-72-9688Euztuey encounter Sergei Patino MD-[facility] Ne[facility] Work Phone: Start: 04-04-2025 End: 20-33-0418tmxbxxvohiMXGM [facility] Centertart: 04-02-2025 End: 54-49-3019Ffdm visit est pt mod-hi severity 40 minutes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 Work Phone: noms [facility] ACOComment on above:Benign essential hypertension (Primary Dx); Chronic kidney disease, stage 4 (severe) (HCC); Localized edema; Right flank pain; Routine lab drawStart: 04-02-2025 End: 29-09-0516Mcusnnx encounter status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 Work Phone: noms HealthcareStart: 03-25-2025 End: 08-60-5133PfrppqCkdct Dukles LPNNOMS CI FMComment on above:Benign essential hypertension ; Gastroesophageal reflux disease, unspecified whether esophagitis present; Insomnia due to medical conditionStart: 03-24-2025 End: 75-69-2810xrteqxptteKJAZQU B BERRYNot AvailableStart: 03-24-2025 End: 44-23-3749Mvovawpwtakd care manage srvc 14 day dischargeDsrikanth Vogt MD Work Phone: noms CI FMComment on above:Atherosclerosis of shosh[place]pai[place] coronary artery of shoshone[place]paiute heart with stable angina pectoris (Primary Dx); Type 2 diabetes mellitus with stage 4 chronic kidney disease, without long-term current use of insulin (HCC); Insomnia due to medical condition; Chronic kidney disease, stage 4 (severe) (HCC); Primary osteoarthritis of both kneesStart: 18-14-1308Stiexdnkwa and management of inpatientCALEB T [facility]tart: 03-13-2025 Evaluation and management of inpatientCALEB T [facility] Hospitaltart: 60-57-5546Dpjvqjjmqg and management of inpatientCALEB T [facility] Hospitaltart: 13-86-4032Szdacbetji and management of inpatientCALEB T [facility] Hospitaltart: 03-13-2025 End: 28-61-9505Uronowcvno and management of inpatientJEFFERY [facility] Centertart: 02-25-2025 End: 93-99-3985Wqpnzl Jason Moncada 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 Work Phone: NOMS CI FMStart: 02-25-2025 End: 74-38-9731Jpijfp Jason Moncada NP Work Phone: noMS CI FMStart: 02-25-2025 End: 46-36-6629Fwjfen outpatient visit 25 minutesSherri M Micheal 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 Work Phone: NOMS CI FMComment on above:Thyroid nodule (CMS/HCC) (Primary Dx); 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/HCC); Chronic kidney disease, stage 4 (severe) (CMS/HCC); Hair loss; Other fatigue; Weight loss; Depressive disorder (CMS/HCC); Decreased estrogen levelStart: 02-25-2025 End: 42-09-0325nrenwowxywORWEVF M SHIVELYNot AvailableStart: 01-02-2025 End: 29-67-6611Jkafkb flowsLuis Vogt MD Work Phone: NOMS CI FMStart: 01-02-2025 End: 31-32-4880Sjuymw Berenice Vogt MD Work Phone: NOMS CI FMStart: 01-02-2025 End: 95-49-0690vtbkzttvxqRIKKOP B BERRYNot AvailableStart: 01-02-2025 End: 82-69-8260Xrirfr outpatient visit 25 minutesJack Vogt MD Work Phone: NOMS CI FMComment on above:Stage 3b chronic kidney disease (HCC) (CMS/HCC) (Primary Dx); Pulmonary fibrosis, unspecified (CMS/HCC); Localized edema; Anxiety; Depressive disorder (CMS/HCC)Start: 12-12-2024 End: 29-86-5124Izvtxy Berenice Vogt MD Work Phone: NOMS CI FMStart: 12-12-2024 End: 93-32-4516Knhvcf Berenice Vogt MD Work Phone: NOMS CI FMStart: 12-12-2024 End: 37-48-4187iusbuhsaplWAPXFT B BERRYNot AvailableStart: 12-12-2024 End: 88-86-8104Rkogv of hemosiderin, Roz Vogt MD Work Phone: [facility] Work Phone: Start: 12-12-2024 End: 55-31-7270Uyaxnav encounter procedureDaniel B Vogt MD Work Phone: noms CI FMComment on above:Routine general medical examination at health care facility (Primary Dx); ACP (advance care planning); Spinal stenosis, lumbar region with neurogenic claudication; Stage 3b chronic kidney disease (HCC) (CMS/HCC); Pulmonary fibrosis, unspecified (CMS/HCC); Type 2 diabetes mellitus with diabetic peripheral angiopathy without gangrene ([facility]/HCC); Localized edemaStart: 11-18-2024 End: 41-44-5148nezaqnrdtrPyradyb R WATERSFacility:EU BellevueStart: 11-18-2024 End: 54-29-6242Ytvusoq encounter procedureAlfredo CARDENAS [facility] start: 11-03-2024 End: 10-47-9938IfmofxMesqvv B Berry MD Work Phone: noms CI FMComment on above:AnxietyStart: 09-30-2024 End: 58-84-4985kjysfhthkvIlaebvv R WATERSFacility:EU evueStart: 09-30-2024 End: 34-11-6318Fcakgvv encounter procedureAlfredo CARDENAS [facility] start: 09-16-2024 End: 47-31-2948YflessHcvydr B Berry MD Work Phone: noms CI FMComment on above:Insomnia due to medical conditionStart: 09-13-2024 End: 38-06-8628Bysaidlgh Result EncounterGeneric External Data ProviderNOMS External Department UnsolicitedStart: 09-13-2024 End: 93-32-6066Vfkfhompf Result EncounterGeneric External Data ProviderNOMS External Department UnsolicitedStart: 04-24-2024 End: 07-10-9744dqqyjnttckUSURJZ RIANDRÉSChillicothe [facility] Start: 03-19-2024 End: 46-32-7905efqirvabxoNdrqgc X OrzechFacility:EU tart: 03-19-2024 End: 67-79-0312Fzflqbx encounter procedureAurora X Orzech [facility] start: 79-76-4561pxdfqqyutfRvlrlh X OrzechFacility:EU BellevueStart: 02-05-2024 End: 20-64-9852uwnshdhtzjWC Jack Vogt Work Phone: [facility] Work Phone: Start: 02-05-2024 End: 42-33-2939Qwuygsd encounter procedureII Jack Vogt Work Phone: [facility] Work Phone: Start: 11-23-2023 End: 86-92-4984Vfaxjdf encounter procedureII Jack Vogt Work Phone: [facility] Work Phone: Start: 10-23-2023 End: 31-52-8553Jogjsgf encounter procedureAlfredo CARDENAS [facility] start: 01-18-2023 End: 78-04-4237pvozdmlvxxCADCIBB BOESFacility:J4Uypdw: 01-10-2023 End: 51-96-9195szzhgohiktKGNYCZY BOESFacility:I0Xwxdi: 09-26-2022 End: 75-36-8829Wugsqpp encounter procedureAlfredo CARDENAS [facility] start: 09-07-2022 End: 36-30-6361rcbcyxordfBCNNQO SHIVELYFacility:L9Jyoyt: 08-29-2022 End: 76-26-5084cdpccfvzmqXGPQTSJ WATERSFacility:U4Bwhku: 03-16-2022 End: 84-52-5388iatnumxzcdBUZPYSV TUCKERFacility:Z6Nzetk: 03-04-2022 End: 70-27-6323Bfxwdlc encounter procedurePaelza Moya CARDENAS [facility] start: 02-22-2022 End: 83-78-1230sbkpucgsgdFRLTUAC WATERSFacility:C7Hnmpp: 02-16-2022 End: 69-15-4440rlspifzdldRAWJJLV TUCKERFacility:O8Mwdkm: 02-04-2022 End: 62-17-8594gkrbxuqyikZVRMYAM BRYANERFacility:U9Emmcf: 02-02-2022 End: 43-15-6214Nkahrti encounter procedureII Jack Vogt Work Phone: [facility] Start: 01-31-2022 End: 71-60-9789ozdxnwvpfmWTXKOHD BRYANERFacility:U9Clsxe: 06-04-2018 End: 53-52-8944Yqkjlqemwh and management of inpatientBO [facility]ertart: 05-23-2018 End: 10-33-1809Jhsgyuo encounterBO [facility]stertart: 05-23-2018 End: 59-10-0236Aouhjas encounterSt. [facility] ([place] Procedures DateProcedureProcedure DetailPerforming ClinicianStart: 38-83-8654JQRF CBC WITH PLATELET NO DIFFERENTIALGeneric External Data ProviderStart: 06-27-2025 Comprehensive metabolic panelJack Vogt MD Work Phone: Start: 73-64-2682WHM PRO BNPDabambi Vogt MD Work Phone: Start: 32-86-9474JPZ CMP (CMP) (FOR REMOTE [facility] USE) Jack Vogt MD Work Phone: Start: 27-20-0393XZO W/REFLEX M9Rofeexbambi Vogt MD Work Phone: Start: 33-01-8788Dbimdzop screenEarl HaleyComment on above:Result Comment: PERFORMED BY: [facility] [place] [address] PATHOLOGIST VERTICAL CONTOUR BAND SAW OPERATOR ELIZABETH MOREL M.D.Start: 78-19-3673Trytc chest X-rayDabambi Vogt II Work Phone: Start: 09-04-8855PF of abdomen and pelvis without contrastDabambi Vogt II Work Phone: Start: 66-13-9170Zjmdepbtcn glycosylated q2vMiqehpJack Vogt MD Work Phone: Start: 65-17-8708BMR CREATININEGeneric External Data ProviderStart: 02-05-2024 End: 78-44-5965Dptpwijuq mammography of bilateral breastsII Jack Vogt Work Phone: Start: 85-90-8608Fvqlvo X-rayII Jack Vogt Work Phone: Start: 30-63-6699M-ray of both kneesII Jack Vogt Work Phone: Start: 66-41-1333Weeedsyqv mammography of bilateral breastsII Jack Vogt Work Phone: Start: 23-01-7494JqortzpvkjsYeouigp ProviderStart: 40-89-7413Souiosz of coronary artery bypass graftingHistory of coronary artery bypass surgeryGeneric ProviderStart: 61-13-1176Aqkkbqn of placement of stent for coronary artery diseaseHistory of coronary artery stent placementGeneric ProviderStart: 36-28-3780BMGQUCKDA SPIROMETRY RTBO YOOStart: 09-61-6346OYXDQ OXIMETRY, CONTINUOUSBO YOOStart: 54-05-0685CKBXJEFCB SPIROMETRY RTBO YOOStart: 43-95-1776KCJPZZLFZ SPIROMETRY RTBO YOOStart: 97-08-0368YTYGS OXIMETRY, CONTINUOUSBO YOOStart: 27-23-8248MHUSIHCIN SPIROMETRY RTBO YOOStart: 06-07-2018 INCENTIVE SPIROMETRY RTBO YOOStart: 49-37-3801EZLTADIV OXYGEN THERAPY PROTOCOLBO YOOStart: 06-02-3876XNIAZ OXIMETRY, CONTINUOUSBO YOOStart: 32-72-3737SROQNKQSY PATIENTBO YOOStart: 33-41-0793TY CONSULT TO HOME CARE NEEDSBO YOOStart: 27-03-1665OAPRGJLYS SPIROMETRY RTBO YOOStart: 00-58-8303Ygdjs count complete auto&auto difrntl wbcBO YOOStart: 58-20-8643Kvkcwmlaearxp metabolic panelBO DESIRAE Start: 28-59-3217ZYGCO OXIMETRY, CONTINUOUSBO YOOStart: 25-09-1967GJMRMQ AND OUTPUTBO YOOStart: 10-45-9102XHZHK OXIMETRY, CONTINUOUSBO YOOStart: 06-07-2018 INCENTIVE SPIROMETRY RTBO YOOStart: 50-05-3835WMMMVGKIK SPIROMETRY RTBO DESIRAE Start: 40-76-4972GDNMV OXIMETRY, CONTINUOUSBO YOOStart: 06-15-8326DLVHPXKBW SPIROMETRY RTBO YOOStart: 69-85-8152DUVPTIPGK SPIROMETRY RTBO YOOStart: 23-57-7758IVYWA OXIMETRY, CONTINUOUSBO YOOStart: 29-84-7331DFSUFVSNM SPIROMETRY RTBO YOOStart: 46-33-9657YFNGOGJSR SPIROMETRY RTBO YOOStart: 01-44-4887XMARS OXIMETRY, CONTINUOUSBO YOOStart: 70-43-5165YIYRJFMFB SPIROMETRY RTBO YOOStart: 16-81-7582JMUQGYBWM SPIROMETRY RTBO YOOStart: 70-93-9691UMZUEGKO OXYGEN THERAPY PROTOCOLBO YOOStart: 77-14-2322ATCAD OXIMETRY, CONTINUOUSBO YOOStart: 06-06-2018 Radiologic exam chest 2 viewsBO YOOStart: 14-88-3175QQPHFUPLP SPIROMETRY RTBO YOOStart: 99-64-7467Flpct metabolic panel calcium totalBO YOOStart: 06-06-2018 Blood count complete auto&auto difrntl wbcBO YOOStart: 00-74-0735XYCUW OXIMETRY, CONTINUOUSBO YOOStart: 17-79-6813RWHMFV AND OUTPUTBO YOOStart: 48-21-5591XGHPO OXIMETRY, CONTINUOUSBO YOOStart: 84-56-9596NBNYXZR COMMUNICATIONBO YOOStart: 95-56-3928ITGWKQVBR SPIROMETRY RTBO YOOStart: 60-39-6492JXZVTEPLF SPIROMETRY RT SHAKA YOOStart: 99-66-2047TFNNV OXIMETRY, CONTINUOUSBO YOOStart: 06-05-2018 INCENTIVE SPIROMETRY RTBO YOOStart: 51-86-3554KDLZLMHBX SPIROMETRY RTBO DESIRAE Start: 78-56-6661XUFOX OXIMETRY, CONTINUOUSBO YOOStart: 59-07-8913HIQRKTJZK SPIROMETRY RTBO YOOStart: 79-68-3425GBOOSYTNB SPIROMETRY RTBO YOOStart: 65-99-3502WXGPF OXIMETRY, CONTINUOUSBO YOOStart: 32-84-0690QXCZEUOKX SPIROMETRY RTBO YOOStart: 59-75-1794Yzkea spine lumbosacral 2/3 viewsBO YOOStart: 47-00-8766AUGGNSFGF SPIROMETRY RTBO YOOStart: 83-93-8604MFYQN OXIMETRY, CONTINUOUSBO YOOStart: 77-16-5755BPBKIDUA OXYGEN THERAPY PROTOCOLBO YOOStart: 58-11-2350EOLECCALV SPIROMETRY RTBO YOOStart: 33-04-6256Eiipd count complete auto&auto difrntl wbcBO YOOStart: 20-39-3435Jwacxcqvpomft metabolic panelBO DESIRAE Start: 56-56-4160QNVUJCN HEELS OFF OF BEDBO YOOStart: 66-54-7275ORWU OF BED 60 DEGREES OR LESSBO YOOStart: 60-97-8300UTJNUMY COMMUNICATIONBO YOOStart: 01-81-2103HOUC PATIENTBO YOOStart: 10-10-4754PPGXP OXIMETRY, CONTINUOUSBO DESIRAE Start: 77-42-7950EAWLDFHZ TOLERATEDBO YOOStart: 24-14-1153HSNXAQME PATIENTBO YOOStart: 64-53-8308EKGUWOTJ REMOVALBO YOOStart: 66-27-5966HHXWS WEIGHTSBO DESIRAE Start: 10-16-5476FGQBSV AND OUTPUTBO YOOStart: 79-36-7877DK EVAL AND TREATBO DESIRAE Start: 79-73-9271IX EVAL AND TREATBO YOOStart: 62-56-5675WPOJS OXIMETRY, CONTINUOUSBO YOOStart: 02-97-5044EAIRZPWBV SPIROMETRY RTBO YOOStart: 06-04-2018 INCENTIVE SPIROMETRY RTBO YOOStart: 19-05-3183MOANU OXIMETRY, CONTINUOUSBO DESIRAE Start: 59-34-2881YBEQHZXPE SPIROMETRY RTBO YOOStart: 08-97-5419ZPCIY INTERMITTENT PNEUMATIC COMPRESSION DEVICEBO YOOStart: 95-55-7712WAQYC OXIMETRY, CONTINUOUSBO YOOStart: 11-42-0837AJFUGZY DIET TOLERATED (NURSING COMMUNICATION)SHAKA YOOStart: 06-52-7695VSBINOIK INDWELLING CATHETHERBO YOOStart: 96-13-6184WEPAFHA HOBBO YOOStart: 86-44-2251EZTD CODEBO YOOStart: 06-04-2018 INITIATE OXYGEN THERAPY PROTOCOLBO YOOStart: 11-39-2979EYVBZB AND OUTPUTBO DESIRAE Start: 77-09-2653BTNRF/VASCULAR CHECKSBO YOOStart: 87-39-0314FCTHSD PHYSICIAN (SPECIFY)SHAKA YOOStart: 57-83-3649ZZUJHKK CESSATION EDUCATIONBO YOOStart: 37-29-5808FMUJT SIGNSBO YOOStart: 36-05-8965EAMOZ CAREBO YOOStart: 06-04-2018 DIET GENERALBO YOOStart: 61-73-5730HGHZAWOSQ MONITORINGBO YOOStart: 06-04-2018 Blood count complete automatedBO YOOStart: 69-57-6744Nlflufjnospoh metabolic panelBO YOOStart: 68-54-7842MAGOXKR STATUS (FROM ED OR OR/PROCEDURAL)SHAKA DESIRAE Start: 37-03-2524DYRWFQCJ PATIENTBO YOOStart: 78-69-9909UCAZIY FOR SURGICAL PROCEDURESBO YOOStart: 35-82-8984LWPNZZAA PATHOLOGYBO YOOStart: 06-04-2018 SURGICAL PATHOLOGYBO YOOStart: 11-85-6312NAT GLUCOSE FINGERSTICKBO YOOStart: 30-33-9382BDYF GLUCOSEBO YOOStart: 59-75-5290Rolsxij bacterial quanttative colony count urineBO YOOStart: 66-86-6835Xrpiwddztkb urinalysisBO YOOStart: 54-78-8034EQGY AND SCREENBO YOOStart: 83-42-2883Esk prsmptv pthgnc organism scrn w/colony estimjBO YOOStart: 68-30-9126Sjyuz entir thrc lmbr crv sac spi w/skull 2/3 vwBO YOOStart: 07-66-7889Xpvvd count complete automatedBO YOOStart: 56-49-2459Ghhitfrxzfd timeBO YOOStart: 44-14-2612MZWNT RT REFLEX TO CULTUREBO YOOStart: 95-04-9777Rrmji metabolic panel calcium totalBO YOOStart: 05-23-2018 EKG 12-LEADBO YOOCholecystectomyPatrick froodies GmbH ColonoscopyPatrick [facility] [facility] Procedure on backPatrick [employer] TonsillectomyPatrick [employer] Plan of Treatment DateCare ActivityDetailAuthorStart: 58-80-9542Ntbduqrwb for malignant neoplasm of colonNOMS HealthcareStart: 03-27-2026Medicare Annual Wellness (AWV)Medicare Annual Wellness (AWV)[facility] HealthcareStart: 06-27-2025 End: 18-27-0776Uxjblli encounter yvobglgqw58/10/2025 12:00 PM EDT Office Visit [facility] [address] [facility] [address] [place] [address] 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, 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 [address] [place] [address] [facility] ACOStart: 06-23-2025 End: 14-62-8134Xzfyudt encounter ilwgqsytf16/06/2025 3:30 PM EDT Office Visit N[facility] [place] [facility] [address] [facility] [address] [place] [address] Jack Vogt MD [address] [facility] [address] [place] [address] [facility] [place] [facility]: 06-09[facility]2025 End: 59-20-1745Kdtimuylowvui metabolic 2000 panel - Serum or PlasmaComprehensive metabolic panel Lab Routine Chronic kidney disease, stage 4 (severe) (HCC) Expected: 06/09/2025 (Approximate), Expires: 06/09/2026NOMS HealthcareComment on above:Expected: 06/09/2025 (Approximate), Expires: 06/09/2026Start: 06-09-2025 End: 29-94-2666Mrrowyvirym peptide B [Mass/volume] in BloodB-type natriuretic peptide Lab Routine Chronic kidney disease, stage 4 (severe) (HCC) Chronic diastolic congestive heart failure (HCC) Expected: 06/09/2025 (Approximate), Expires: 06/09/2026[facility] Work Phone: Comment on above:Expected: 06/09/2025 (Approximate), Expires: 06/09/2026Start: 06-09-2025 End: 01-96-1778MEG W/REFLEX TO FT4TSH W/REFLEX TO FT4 Lab Routine Chronic kidney disease, stage 4 (severe) (HCC) Expected: 06/09/2025(Approximate), Expires: 06/09/2026[facility] HealthcareComment on above:Expected: 06/09/2025 (Approximate), Expires: 06/09/2026Start: 06-09-2025 End: 32-78-2411Efdwvan encounter yqknwausu54/22/2025 11:15 AM EDT Office Visit [facility] [place] [facility] [address] [facility] [address] [place] [address] Jack Vogt MD [address] [facility] [address] [place] [address] ArrivedCACHE VALLEY [facility]OS[facility]ITAL [place] [facility] HealthnceComment on above:ArrivedStart: 05-26-2025 End: 78-42-9075Njilrdg encounter atktqdtap94/08/2025 3:30 PM EDT Office Visit N[facility] [address] [facility] [address] [place] [address] Jack Vogt MD [address] [facility] [address] [place] [address] NOMS CI FMStart: 02-94-1285Dqvyhvjpx [facility] HealthcareStart: 32-97-6220WhlzbqhkqSycamore Medical Centertart: 04-10-2025 Referral to rehabilitation physicianSycamore Medical Centertart: 92-82-0504DlywhfpucSycamore Medical Centertart: 27-63-2897CanfaglblSycamore Medical Centertart: 78-84-1696Wvcxzbht therapy procedureSycamore Medical Centertart: 08-95-1555Unhyajpl to occupational therapistSycamore Medical Centertart: 58-12-9502NtzimhgjaSycamore Medical Centertart: 82-29-8665Xdqvhehr to gastroenterologistSycamore Medical Centertart: 92-45-0302Nqhwpfzj to nephrologistSycamore Medical Centertart: 80-62-3394Tbqqcxok admissionSycamore Medical Centertart: 04-02-2025 End: 02-06-6089PXR W Auto Differential panel - BloodCBC and differential Lab Routine Benign essential hypertension Chronic kidney disease, stage 4 (severe) (HCC) Localized edema Expected: 04/02/2025 (Approximate), Expires: 04/02/2026 [facility] Healthcare Work Phone: Comment on above:Expected: 04/02/2025 (Approximate), Expires: 04/02/2026Start: 04-02-2025 End: 92-41-9679Dbroypbiyfgtk metabolic 2000 panel - Serum or PlasmaComprehensive metabolic panel Lab Routine Benign essential hypertension Chronic kidney disease, stage 4 (severe) (HCC) Localized edema Expected: 04/02/2025 (Approximate), Expires: 04/02/2026[facility] HealthcareComment on above:Expected: 04/02/2025 (Approximate), Expires: 04/02/2026Start: 04-02-2025 End: 03-05-7622XCJHLAWFHJ, COMPLETE W/REFLEX TO CULTUREURINALYSIS, COMPLETE W/REFLEX TO CULTURE Lab Routine Right flank pain Expected: 04/02/2025 (Approxim ate), Expires: 04/02/2026[facility] HealthcareComment on above:Expected: 04/02/2025 (Approximate), Expires: 04/02/2026Start: 03-09-4068Jlxlvznjje A1c measurement Diabetes: Hemoglobin C0IUJFG HealthcareStart: 02-25-2025 End: 66-10-4909MCL Skeletal system Views for bone densityDEXA bone density Imaging Routine Decreased estrogen level Expected: 02/25/2025, Expires: 02/25/2026[facility] HealthcareComment on above:Expected: 02/25/2025, Expires: 02/25/2026Start: 02-25-2025 End: 16-79-0137KK Thyroid glandUS thyroid Imaging Routine Thyroid nodule ([facility]) Hair loss Other fatigue Weight loss Expected: 02/25/2025, Expires: 02/25/2026[facility] Work Phone: Comment on above:Expected: 02/25/2025, Expires: 02/25/2026Start: 02-25-2025 End: 02-46-3518Plgwtyd encounter efkccjogj55/10/2025 11:30 AM EDT Office Visit [facility] [address] [facility] [address] [place] [address] Renetta Moncada NP [address] [facility] [address] [place] [address] ArrivedNOMS CI FMComment on above:ArrivedStart: 07-03-0140Fjpfyilip for malignant neoplasm of breastMammogramCACHE VALLEY HOSPITAL Healthcare Start: 01-02-2025 End: 89-60-0617Hozqyai encounter beerintmw44/17/2025 9:30 AM EDT Office Visit [facility] [address] [facility] [address] [place] [address] Jack Vogt MD [address] [facility] [address] [place] [address] NOMS CI FMStart: 12-12-2024 End: 15-42-4785Iobruqpsbjbhi metabolic 2000 panel - Serum or PlasmaComprehensive metabolic panel Lab Routine Stage 3b chronic kidney disease (HCC) (CMS/HCC) Expected:12/12/2024 (Approximate), Expires: 12/12/2025[facility] HealthcareComment on above:Expected: 12/12/2024 (Approximate), Expires: 12/12/2025Start: 12-12-2024 End: 43-96-9437Zjwqf 1996 panel - Serum or PlasmaLipid panel Lab Routine Type 2 diabetes mellitus with diabetic peripheral angiopathy without gangrene ([facility]/HCC) Expected: 12/12/2024 (Approximate), Expires: 12/12/2025[facility] HealthcareComment on above:Expected: 12/12/2024 (Approximate), Expires: 12/12/2025Start: 03-27-2025Medicare Annual Wellness (AWV)Medicare Annual Wellness (AWV)NOMS HealthcareStart: 12-12-2024 End: 26-30-1722Rnsfjegwgdb [Units/volume] in Serum or PlasmaTSH Lab Routine Localized edema Expected: 12/12/2024 (Approximate), Expires: 12/12/2025[facility] Work Phone: Comment on above:Expected: 12/12/2024 (Approximate), Expires: 12/12/2025Start: 12-12-2024 End: 00-90-1626Ltlcaokij (T4) free [Mass/volume] in Serum or PlasmaT4, free Lab Routine Localized edema Expected: 12/12/2024 (Approximate), Expires: 12/12/2025 N[facility]S HealthcareComment on above:Expected: 12/12/2024 (Approximate), Expires: 12/12/2025Start: 12-12-2024 End: 98-22-2759Spbayzedphgvzhko (T3) Free [Mass/volume] in Serum or PlasmaT3, free Lab Routine Localized edema Expected: 12/12/2024 (Approximate), Expires: 12/12/2025[facility] HealthcareComment on above:Expected: 12/12/2024 (Approximate), Expires: 12/12/2025Start: 29-70-7283Stphj screening for proteinDiabetes: Urine Protein ScreeningNOPA HealthcareStart: 12-12-2024 End: 00-33-9003Pyewdnb encounter wpjybqmfk56/27/2025 11:30 AM EDT Office Visit [facility] [address] [facility] [address] [place] [address] Jack Vogt MD [address] [facility] [address] [place] [address] NOMS CI FMStart: 89-22-3220Buickamy screeningDiabetes: Retinopathy ScreeningNOPA HealthcareStart: 91-47-0350Tjdomqnyao A1c measurement Diabetes: Hemoglobin U0KIWDS HealthcareStart: 69-34-4822Uccofynax vaccination Influenza Vaccine (#1)[facility] HealthcareStart: 81-29-9319Yssyirygk for malignant neoplasm of colonCACHE VALLEY [facility]OS[facility]ITAL HealthcareAlbumin/Globulin ratioOhiohealth Riverside Methodist HospitalAnion gap measurementOhiohealth Riverside Methodist HospitalaPTT in Platelet poor plasma by Coagulation assayOhiohealth Riverside Methodist HospitalBasophils [#/volume] in Blood by Automated countOhiohealth Riverside Methodist Hospital Basophils/100 leukocytes in Blood by Automated countOhiohealth Riverside Methodist HospitalCBC W Auto Differential panel - BloodCBC and differential Lab Routine Stage 3b chronic kidney disease (HCC) (CMS/HCC) Ordered: 12/12/2024[facility] HealthcareComment on above:Ordered: 12/12/2024BC W Auto Differential panel - BloodCBC and differential Lab Routine Chronic kidney disease, stage 4 (severe) (HCC) Ordered: 06/09/2025[facility] HealthcareComment on above:Ordered: 06/09/2025 Eosinophils/100 leukocytes in Blood by Automated countOhiohealth Riverside Methodist HospitalErythrocyte distribution width [Ratio] by Automated [facility] HospitalErythrocytes [#/volume] in [facility] HospitalGlobulin [Mass/volume] in SerumOhiohealth Riverside Methodist Hospital Hematocrit [Volume Fraction] of [facility] HospitalHemoglobin [Mass/volume] in [facility] HospitalINR in Platelet poor plasma by Coagulation assayOhiohealth Riverside Methodist HospitalLeukocytes [#/volume] corrected for nucleated erythrocytes in Blood by Automated coun [facility] HospitalLeukocytes [#/volume] in [facility] HospitalLymphocytes [#/volume] in Blood by Automated count [facility] HospitalLymphocytes/100 leukocytes in Blood by Automated countOhiohealth Riverside Methodist HospitalMCH [Entitic mass] by Automated countOhiohealth Riverside Methodist HospitalMCHC [Mass/volume] by Automated count [facility] HospitalMCV [Entitic volume] by Automated count [facility] HospitalMonocytes [#/volume] in Blood by Automated countOhiohealth Riverside Methodist HospitalMonocytes/100 leukocytes in Blood by Automated countOhiohealth Riverside Methodist HospitalNeutrophils [#/volume] in Blood by Automated countOhiohealth Riverside Methodist HospitalNeutrophils/100 leukocytes in Blood by Automated [facility] HospitalNucleated erythrocytes [Presence] in Blood by Automated countOhiohealth Riverside Methodist HospitalPatient EducationHope PamphletTrihealth Good Samaritan Hospital Ctr Work Phone: Patient referralTrihealth Good Samaritan Hospital Ctr Work Phone: Platelet mean volume [Entitic volume] in Blood by Automated [facility] HospitalPlatelets [#/volume] in Blood [facility] HospitalProthrombin time (PT)[facility] HospitalRenal function 1999 panel - Serum or PlasmaAdventHealth [facility]berR[facility] Immunizations Immunization DateImmunizationNotesCare AfbiiaadVqjilgti70-31-0081orfufefdr virus vaccine, unspecified formulationProtégé Biomedical [facility]10-17-2022Influenza, Seasonal, Quadrivalent, AdjuvantedGeneric Provider NOMS Kktknvzoui49-17-3027Lcfbstm Bivalent Booster VaccinationGeneric Provider NOMS Jnslczlkaw39-92-1536MGCC-YwR-6 (COVID-19) mRNAMUL.ORD!g34765KpynwjaProtégé Biomedical [facility]10-07-2021influenza virus vaccine, unspecified formulationProtégé Biomedical [facility]10-07-2021Influenza, High-dose Seasonal, Quadrivalent, Preservative Free Generic ProviderNOMS Ylfmcmiphe84-63-5354NCBB-JbM-7 (COVID-19) mRNA BNT-162b2 Kerecis [facility] on above:Result Comment: 2022-09-26: UKZ0004-30-9278ARET-NiI-4 (COVID-19) mRNA BNT-162b2 Kerecis [facility] on above:Result Comment: 2022-09-26: FKQ2468-59-2018ZKLN-JgY-4 (COVID-19) mRNA BNT-162b2 vaxAlfredo CARDENAS [facility] on above:Result Comment: 2022-09-26: FBK4872-41-4058prfhlfejm virus vaccine, unspecified formulationAlfredo CARDENAS [facility]10-21-2020Influenza, Seasonal, Quadrivalent, AdjuvantedGeneric Provider [facility] HealthMcdwtvtczq16-06-3300Lphdmrrf Monkeypox, Live Attenuated, Preservative Free Generic ProviderPhelps HealthYnwqsytoog89-55-5115envkeqilxilr polysaccharide vaccine, 23 valentGeneric ProviderNOMercy Hospital Washington Payers DatePayer CategoryPayerPolicy [id number] 2023Medicare (Managed Care) [id number] [id number] [id number] 1960Private Health [id number] 2.840.1.017933.3.57[id number] 2.840.1.034637.3.579.2.18341-90-7631Xnuzjpy7038115 2.840.1.837968.3.579.2.78695-80-5923Cprnhus5363621 2.16.840.1.217364.3.579.2.47962-88-9764Dryyick5899003 2.16.840.1.851157.3.579.2.73554-79-2857Mracqxl8302864 2.16.840.1.164382.3.579.2.81416-00-5759Mtkhyic5537781 2..840.1.922581.3.579.2.71498-96-7145Oufjtuv9069499 2.16.840.1.874462.3.579.2.67604-30-0108Rtbzovs8158616 2.840.1.660803.3.579.2.75502-29-0245Jofbsrq3695234 2.840.1.362503.3.579.2.57901-82-2832Dixhrcx18271535 2.840.1.611211.3.579.2.69678-31-1761Uzjnupd70247476 2.840.1.860040.3.579.2.96563-65-2072Mbadmgs19206999 2..840.1.488282.3.579.2.63516-89-0582Wcvkpzh14641434 2.840.1.271405.3.579.2.60890-22-2846Xxsluca18073365 2.840.1.558690.3.579.2.24762-26-8968Oteddko22789618 2..840.1.653788.3.579.2.300252-10-5366Vxvogsq62983082 2.840.1.388127.3.579.2.860935-47-8483Mjtfgeo68128749 2.840.1.680645.3.579.2.536547-52-9163Occfpxd0461875 2..840.1.443515.3.579.2.374211-02-8688Ydgzygh8657024 2.16.840.1.839543.3.57[id number] Health InsuranceSt. Charles Hospital [id number] BC/[id number] 0g29319m-r27h-5813-85h8-d25wsgjet092Oqvyenm78012105 2.16.840.1.920839.3.579.2.531 Social History DateTypeDetailFacilityStart: 03-25-2021 End: 90-26-0585Oslwgnt smoking status NHISEx-smoker (finding)[facility]ertart: 03-20-2024 End: 58-34-9425Qgvkrsh of tobacco useCommunity Memorial Hospital Work Phone: Start: 00-62-8903Gsw Assigned At BirthUniversity Hospitals Geneva Medical Centertart: 64-64-9782Dxfnoll smoking statusNeverExecutive Urology of [facility] BellevueStart: 71-54-4105Bmlrgjh smoking status NHISNever smoked tobaccoNOMS HealthcareStart: 05-09-2023 End: 39-14-3345Cieftvi use and exposureSmokeless tobacco non-userNOMS Healthcare Start: 03-20-2024 End: 94-92-8642Wgidcumzh beverage intakeNot AskedNOMS HealthcareStart: 03-20-2024 End: 90-27-8246Pfkiuyq of Social functionNOMS HealthcareStart: 34-86-4496Cvuwcjj Commentcaffeine yes type:coffeeNOMS HealthcareStart: 51-82-8552Mro assigned at birthNot on fileNOMS HealthcareStart: 00-02-1477Pvdxrsg smoking status NHIS Current some day smokerSycamore Medical CenterexFemale (finding) [facility] Centertart: 04-09-2025 End: 89-81-5417DIAI Follow upSDOH Follow upCommunity Memorial Hospital Work Phone: History of tobacco useCurrent smokerNOMS Healthcare History of tobacco useCigarette SmokerNOMS HealthcareNEGATED: Highlighted row [facility] Goals DatePatient GoalDesired Activity/StatePersonal health goal Functional Status OqzwCticxllazcEbggptXjgdpyha87-83-9300Slbqrpl Health Questionnaire 2 item (PHQ- 2) [Reported][facility] HealthYqovfodfep89-92-6996PNV-8 quick depression assessment panel [Reported.PHQ][facility] HealthAsvccshfrt45-96-9981Swxvvvdwzj StatusN/AExec[facility]07-02-2024Functional StatusN/AExec[facility]02-05-2024Functional StatusN/A [facility]01-09-2023Functional StatusN/AExec[facility]06-17-2022 Functional StatusN/AExec[facility] Clinical Notes 03-04-2022 to 06-27-2025 Note Date & WkmpNvanUybsvpaw56-90-9531 History of Present illness Narrative* Ana Rosa [...] being seen for a f2f for initiation ofcolstrip [employer]. Patient reports that she had not seen nephrology since prior to her 03/2025 hospitalization, but hasan appt with them on 07/15/25. She also has a cardiology visit scheduled for 07/04/25. She admits that she has not been checking her blood pressure. She does have family check in on her frequently and her kutcorlr-sg-gyu is filling her pill boxes for her. [...] sister has brought her some foods from [place] such as soup, banana bread, quiche, and fruit. Most of her in home meal prep is limited to warming meals up, ormaking simple things such as scrambled eggs, liberian toast, etc. Pt has lost considerable weight [...] would be sent. 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 She states she will wait until after her nephrology appt. 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 Denies any recent falls. 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 She [...] bilateral femoral stent FEMORAL ARTERY STENT Bilateral NC REMOVE TONSILS/ADENOIDS,12+ Y/O SPINE SURGERY fusion of [...] up scheduled for 07/04/25 3. Atherosclerosis of [place] coronary artery of [place] heart with stable angina pectoris This is [...] confined to the home and needs intermittent fpc care physical therapy occupational therapy. I have initiated the establishment of the plan of care. The patient will be followed by a physician, Dr. Vogt, who will periodically review the plan of care. The findings from this kjex-gt-wufh encounter have been communicated with the patient's [...] to improve. documented in this encounterNOMercy Hospital WashingtonTtzyxoiznx72-73-8686 Telephone encounter Note* Telephone Encounter - Ana [...] be the talking to pt re: NOMS Gogafaduob64-66-3908 Telephone encounter Note* Telephone Encounter - 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 NP - 06/27/2025 9:35 AM EDT VM received: Good morning. My name is Fabby Meyers, I am calling on behalf of my mother in law who I believe has an appointment scheduled today at noon, her name is Marleni Dennis and date of 1950, her phone number is [phone] last [id number] We were unaware that I believe probably [...] me. At the earliest convenience, it is [phone]. My name is Fabby, I am to her son, Tarun. I mean, you can also call Marleni to confirm this. Information, if you like. I gave the phone number for her as well, thank you. [facility]ps HealthRtfgauxryz19-88-4428 Miscellaneous Notes* Telephone Encounter - AnaR osa Gonzalez NP - 06/27/2025 9:35 AM EDT [...] date of 1950, her phone number is [phone] last [id number] We were unaware that I believe probably [...] me. At the earliest convenience, it is [phone]. My name is Fabby, I am to her son, Tarun. I mean, you can also call Marleni to confirm this. Information, if you like. I gave the phone number for her as well, thank you. documented in this encounterPhelps HealthEnmhukexzf98-44-4403 History of Present illness Narrative* Jack Vogt [...] bilateral femoral stent FEMORAL ARTERY STENT Bilateral NC REMOVE TONSILS/ADENOIDS,12+ Y/O SPINE SURGERY fusion of [...] 0.55 - 1.02 mg/dL Final [facility] EGFR-AF BAHAMIAN 06/09/2025 14 (L) >=60 mL/min/1.73m 2 Final [facility] EGFR-NON AF BAHAMIAN 06/09/2025 12 (L) >=60 mL/min/1.73m 2 Final [...] Greater than 45 minutes was spent in cyyr-wr-lqsh consultation and coordination of care. Follow up in about 2 weeks (around 06/23/2025). documented in this encounterPhelps HealthXnufprkrfr30-13-4335 History and physical note Author Rajiv Trejo [facility] Methodist HospitalNote Date/TimeJuly 2024 11:50pm[place] [address] Hospitalist H&P Signed Patient: Marleni Dennis MR#: [id number] : 1950 Acct:[id number] Age/Sex: 74 / F Adm Date: 5 Loc: Room: [address] [place] [address] Type: ADM IN Attending Dr: Rajiv Trejo [...] anemia. Patient follows with her PCP in [place] and was referred to nephrology clinic for [...] negative unless noted below or in HPI [facility] Medical History Iron deficiency anemia Former [...] (From Pneumovax-23) Allergy (Verified 04/08/25 18:01) Edema Qafvldu-OTB-QyI Reductase Inhibitor (Ieccljf-Uoa-Zrg Reductase Inhibitor) Allergy (Verified 04/08/25 18:01) Unknown [...] % (Auto) 23.3 % (.) 04/08/25 18:54 Reagan % (Auto) 10.0 % (.) 04/08/25 18:54 Eos % (Auto) 2.6 % (.) 04/08/25 18:54 Baso % (Auto) 1.0 % (.) 04/08/25 18:54 Nucleat RBC Rel Count 0.1 /100 WBC (0-0.5) 04/08/25 18:54 Neut # (Auto) 2.8 x10E3/uL (1.8-7.7) 04/08/25 18:54 Lymph # (Auto) 1.0 x10E3/uL (1.00-4.8) 04/08/25 18:54 Reagan # (Auto) 0.4 x10E3/uL (0.0-0.8) 04/08/25 18:54 [...] pH 6.5 (5.0-9.0) 04/08/25 19:50 Ur Specific Garfield 1.006 (1.001-1.030) 04/08/25 19:50 Urine Protein 50 [...] <Electronically signed by Rajiv Trejo MD> 04/08/25 2295 [facility] Work Phone: 1(706) 531-242907-22-2025 History and physical [place] [id number] Hospitalist H&P Signed Patient: Marleni Dennis MR#: [id number] : 1950 Acct:[id number] Age/Sex: 74 / F Adm Date: 5 Loc: 4P Room: [address] [place] [address] Type: ADM IN Attending Dr: Rajiv Trejo [...] anemia. Patient follows with her PCP in [place] and was referred to nephrology clinic for [...] negative unless noted below or in HPI [facility] Medical History Iron deficiency anemia Former [...] (From Pneumovax-23) Allergy (Verified 04/08/25 18:01) Edema Hgivnkh-VUA-PlQ Reductase Inhibitor (Olppkno-Nyh-Hbx Reductase Inhibitor) Allergy (Verified 04/08/25 18:01) Unknown [...] % (Auto) 23.3 % (.) 04/08/25 18:54 Reagan % (Auto) 10.0 % (.) 04/08/25 18:54 Eos % (Auto) 2.6 % (.) 04/08/25 18:54 Baso % (Auto) 1.0 % (.) 04/08/25 18:54 Nucleat RBC Rel Count 0.1 /100 WBC (0-0.5) 04/08/25 18:54 Neut # (Auto) 2.8 x10E3/uL (1.8-7.7) 04/08/25 18:54 Lymph # (Auto) 1.0 x10E3/uL (1.00-4.8) 04/08/25 18:54 Reagan # (Auto) 0.4 x10E3/uL (0.0-0.8) 04/08/25 18:54 [...] pH 6.5 (5.0-9.0) 04/08/25 19:50 Ur Specific Garfield 1.006 (1.001-1.030) 04/08/25 19:50 Urine Protein 50 [...] Trejo MD 04/08/2509 11 Signed By: 04/08/25 5996 [facility]07-22-2025 Radiology Diagnostic study note [facility] Main [place] [address] [place] [address] CT Scan Report Signed Patient: Marleni Dennis MR#: [id number] : 1950 Acct:[id number] Age/Sex: 74 / F ADM Date: 5 [...] Garnett M.D. 04/08/2025 8:27 PM Dictation Location: [place] [address] Transcribed By: [facility] 04/08/252026 Dictated By: Derek Garnett DO 04/08/252018 Signed By: 04/08/252026 [facility]07-22-2025 Evaluation note* Diagnosis Onset Date Resolution Status Admit Date TOMASA (acute kidney injury) acuteJuly 2024 3:58pmAnemiaacuteJuly 2024 3:58pmChronic kidney disease, stage IV (severe)acuteJuly 2024 3:58pmHypertensive nephropathy acuteJuly 2024 3:58pmProteinuriaacuteJuly 2024 3:58pmAcute kidney injury superimposed on CKDacuteJuly 2024 9:16pmAnemiaacuteJuly 2024 9:16pmFluid overloadacuteJuly 2024 9:16pmHypertensive emergencyacuteJuly 2024 9:16pmHypertensive nephropathyacuteJuly 2024 9:16pmLower GI bleedacuteJuly 2024 9:16pmMelenaacuteJuly 2024 9:16pm [facility] Work Phone: 1(611) 961-228707-22-2025 Evaluation note* Diagnosis Onset Date Resolution Status [...] 2024 9:16pmProteinuriaacuteJuly 2024 9:16pmWeakness generalizedacuteJuly 2024 9:16pm [facility] Work Phone: 1(968) 992-386407-18-2025 NoteSUBJECTIVE Reason for Visit: Marleni Dennis is [...] and hx of DVT/PE. 03/12/2025 admitted to [facility] ([facility]ially presented to [facility]) for hypertension emergency. Systolics were as high as 250, lab work revealed elevated troponin without immediate concern for extreme changes on EKG. CT head was negative for acute process. Placed on Cardene drip initially. Nephrology was also consulted due to the patient's worsening TOMASA. 04/04/2025 office visit: Patient seen evaluated in the office today, accompanied by her qcehalxz-gk-owq. She denies chest pain, shortness of breath, palpitations. She endorses worsening lower extremity edema. On exam she has +3 LE edema. States she has an appointment on Monday with her strand buncher fine wire to decide on dialysis. 04/24/2024 office visit [...] elevated resistive index withi (more content not included)...[facility] 04-02-2025 History of Present illness Narrative* 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 NP - 04/02/2025 2:00 PM EDT Images from the original note were not included. Patient Demographics: Marleni Dennis Date of : 1950 Chief Complaint Patient presents with Hypertension swelling of lower extremities right flank pain HPI Pt is being seen today in her home due to difficulty in getting into the office. [facility] called into the office on 03/31/25 [...] for pain. Pt was recently hospitalized at [facility] for hypertensive crisis. Pt also had an acute kidney injury superimposed on her CKD, stage IV. On discharge from the hospital, Cr was 3.69 and GFR 12.3. A referral to nephrology was sent to Dr. Espinosa in [place] during her hospital follow up visit on [...] up scheduled with Dr Espinosa 04/08 in [place] [address]. She is working on obtaining transportation with [...] bilateral femoral stent FEMORAL ARTERY STENT Bilateral NC REMOVE TONSILS/ADENOIDS,12+ Y/O SPINE SURGERY fusion of [...] for Next scheduled follow-up. documented in this [facility]07-08-2025 Telephone encounter Note* Telephone Encounter - GISSELLE Sigala - 03/25/2025 2:15 PM EDT Rx for ambien was sent yesterday. [id number] Miscellaneous Notes* Telephone Encounter - GISSELLE Sigala - 03/25/2025 2:15 PM EDT Rx for ambien was sent yesterday. documented in this [facility]07-07-2025 History of Present illness Narrative* Jack Vogt MD - 03/24/2025 4:30 PM EDT Images from the original note were not included. HPI Follow-up Additional comments: Transferred to [facility] from [facility] 03/13/25 dx: HTN urgency,NSTEMI discharged home03/20/25 med changes made follow up with cardiology 04/02/25 and nephrology 05/06/25 discuss referral Additional comments: Pt would like a referral sent to nephrology [place] she does not want to go to [facility] edited by Summer Feliciano LPN on 03/24/2025 4:51 PM. Subjective Patient ID: Marleni Dennis is a 74 y.o. female who presents for Follow-up ([facility] dx: HTN urgency,NSTEMI discharged home03/20/25 med changes made follow up with cardiology04/02/25 and nephrology 05/06/25) and discuss referral (Pt would like a referral sent to nephrology [place] she does not want to go to [place]). Flowsheet Row Documentation from 03/24/2025 in [facility] with Aimee Go MA Hospital Information ED, Hospital or Long-Term Facility Discharge? Hospital Patient has been contacted within two business days of discharge Yes Diagnosis Hypertension Discharge Date 03/20/25 Discharged To: Home Setting Discharge Hospital [facility] Engagement Call Start Time 1055 Admission [...] bilateral femoral stent FEMORAL ARTERY STENT Bilateral NC REMOVE TONSILS/ADENOIDS,12+ Y/O SPINE SURGERY fusion of [...] 05/25/2025) for Routine F/U. documented in this encounterPhelps [id number] NotePhysical Therapy Name: Marleni Dennis Date of : 1950 Today's Date: 03/20/25 Pt is unable to be seen for therapy at this time secondary to pt to discharge to home soon. Will check back and complete therapy session as appropriate if discharge does not occur.. Check No Charge Time attempted: [facility]07-03-2025 NoteNephrology Progress Note Patient : Marleni Dennis; 74 y.o. Location: [facility]/4108-01 Attending: Erickson Cabrera MD Admit Date: 03/13/2025 Hospital Day: 7 Reason for Consult: CKD IV with uncontrolled hypertension. Subjective: History of present illness: Marleni Dennis is a 74 y.o. female who was transferred from [facility] after presenting with weakness after a fall as well as uncontrolled hypertension. She has pertinent past medical history of hypertension secondary to renal artery stenosis, CKD IV, CAD s/p CABG and PCI with stent placement, obstructive sleep apnea. She presented to [facility] after a fall after showering as [...] does not regularly follow up with a strand buncher fine wire. She says she has a water pill [...] Dose Status apixaban (Eliquis) 2.5 mg tablet [id number] TAKE 1 TABLET BY MOUTH TWICE A DAY FOR 90 DAYS Historical ProviderMD Active aspirin 81 mg EC tablet [id number] Take 1 tablet every day by oral route. Historical ProviderMD Flag for Review buPROPion (Wellbutrin) 75 mg tablet [id number] Yes Take 75 mg by mouth twice a day. Historical ProviderMD Active carvedilol (Coreg) 12.5 mg tablet [id number] No Take 25 mg by mouth with breakfast and with evening meal. Patient not taking: Reported on 03/13/2025 Historical ProviderMD Not Taking Active DULoxetine (Cymbalta) [address] capsule [id number] Take 30 mg by mouth every other day. Weaning off of duloxetine (takes 60 mg daily AND 30 mg every other day_) Historical ProviderMD Active DULoxetine (Cymbalta) [address] capsule [id number] Take 1 tablet by mouth in the morning. Weaning off of duloxetine (takes 60 mg daily AND 30 mg every other day_) Historical ProviderMD Active ezetimibe (Zetia) 10 mg tablet [id number] Take 1 tablet by mouth in the morning. Historical ProviderMD Active fenofibrate (Tricor) 145 mg tablet 1703 (more content not included)...[facility]07-03-2025 NotePt has DC orders. Sent updates to [facility]. Will send AVS when available. Updated MD and pt's [place]. Sent AVS/DC orders to [facility]. They will be able to arrange start of care on Saturday 03/24. Updated pt.[facility]07-03-2025 Note Hospital Medicine Discharge Summary Final Discharge Diagnosis: Principal Problem: Hypertensive emergency Active Problems: Coronary artery disease without angina pectoris Uncontrolled hypertension Occlusion of carotid artery Depression Type 2 diabetes mellitus with other diabetic kidney complication ([facility]/HCC) Tobacco dependence Stage 4 chronic kidney disease ([facility]/HCC) Acute kidney injury superimposed on chronic kidney disease NSTEMI (non-ST elevated myocardial infarction) ([facility]/HCC) Abdominal bruit Other abnormalities of gait and mobility Severe protein-calorie malnutrition ([facility]) History of DVT (deep vein thrombosis) CAD s/p CABG Admission Diagnosis: HTN (hypertension) with goal to be determined [I10] Hospital course: 74-year-old female with the above history was admitted to [facility] on 03/13 due to hypertensive emergency. patient initially presented to [facility] after a fall and was found to have systolic blood pressure up to 250 and lab work revealed elevated troponin without immediate concerning ischemic changes on EKG. CT head was negative for acute process. She was transferred to [facility] for NSTEMI. Upon presentation cardiology [...] Center 04/02/2025 3:00 PM John Luther CNP [facility] [place] [facility] 05/06/2025 8:30 AM Aydee Chao MD [facility]PH[facility] Comprehensiv 05/06/2025 8:45 AM Aydee Chao MD [facility] NEPHRO Comprehensiv Your medication list [...] pneumovax-23 [pneumococcal 23-cruz ps vaccine], red dye, yysqfkv-[id number] reductase inhibitors, and varenicline. Disposition: Home-Health Care [facility] () Discharge Condition: Stable Code Status: Full [...] fat with locations identified (more content not included)...[facility]07-03-2025 NoteThis report has been cancelled.[facility]07-02-2025 Note-TOMASA on CKD during admission, likely ATN -Cr upward trend, if improved tomorrow then discharge -Daily BMP -Defer fluids to Nephrology - Spoke with nephrology today and agree with doing urinalysis to consider alternative etiologies for the patient's renal dysfunctionUnShelby Memorial Hospital07-02-2025 NotePhysical Therapy Physical Therapy Treatment Patient [...] II Activity Tolerance Comments Pt reports dizziness snf through ambulation limiting distances and activity tolerance. [...] at end of session. PT Assessment 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 Summary Pt continues to improve, however, limited by dizziness snf throughout ambulation distance this date. Pt also [...] will perform sit to (more content not included)...[facility]07-02-2025 NoteNephrology Progress Note Patient : Marleni Dennis; 74 y.o. Location: [facility]/4108-01 Attending: Erickson Cabrera MD Admit Date: 03/13/2025 Hospital Day: 6 Reason for Consult: CKD IV with uncontrolled hypertension. Subjective: History of present illness: Marleni Dennis is a 74 y.o. female who was transferred from [facility] after presenting with weakness after a fall as well as uncontrolled hypertension. She has pertinent past medical history of hypertension secondary to renal artery stenosis, CKD IV, CAD s/p CABG and PCI with stent placement, obstructive sleep apnea. She presented to [facility] after a fall after showering as [...] does not regularly follow up with a strand buncher fine wire. She says she has a water pill [...] Dose Status apixaban (Eliquis) 2.5 mg tablet [id number] TAKE 1 TABLET BY MOUTH TWICE A DAY FOR 90 DAYS Historical ProviderMD Active aspirin 81 mg EC tablet [id number] Take 1 tablet every day by oral route. Historical ProviderMD Flag for Review buPROPion (Wellbutrin) 75 mg tablet [id number] Yes Take 75 mg by mouth twice a day. Historical ProviderMD Active carvedilol (Coreg) 12.5 mg tablet [id number] No Take 25 mg by mouth with breakfast and with evening meal. Patient not taking: Reported on 03/13/2025 Historical ProviderMD Not Taking Active DULoxetine (Cymbalta) [address] capsule [id number] Take 30 mg by mouth every other day. Weaning off of duloxetine (takes 60 mg daily AND 30 mg every other day_) Historical ProviderMD Active DULoxetine (Cymbalta) [address] capsule [id number] Take 1 tablet by mouth in the morning. Weaning off of duloxetine (takes 60 mg daily AND 30 mg every other day_) Historical ProviderMD Active ezetimibe (Zetia) 10 mg tablet [id number] Take 1 tablet by mouth in the morning. Historical ProviderMD Active fenofibrate (Tricor) 145 mg tablet [id number] Take 1 tablet by mouth in the morning. Historical ProviderMD Active furosemide (Lasix) 40 mg tablet [id number] No if needed. (more content not included)...[facility]07-02-2025 Note-RD following, see belowUnShelby Memorial Hospital07-02-2025 Note-MCS SSIUnShelby Memorial Hospital07-02-2025 Note-PT/OT following -[facility]-NRT -Advised on cessationUnShelby Memorial Hospital07-02-2025 Note-Continue LexaproUnShelby Memorial Hospital07-02-2025 Note-Continue Zetia, fenofibrate, aspirinUnShelby Memorial Hospital07-02-2025 Note-likely 2/2 medication non-adherence -US renal negative for stenosis -aldosterone, renin wnl -Required intermittent cardene -BP management per Nephrology, appreciate recsUniversity [facility]og[facility]07-02-2025 Note-would benefit repeating duplex scan of the abdomen as an outpatientUnShelby Memorial Hospital07-02-2025 Note-Prior episodes of DVT, on Eliquis. Physical exam showed evidence of LLE swelling. -b/l LE doppler negative for DVTUnShelby Memorial Hospital07-02-2025 Note-Continue Zetia, aspirin -ultrasound showing <50% stenosis R ICA, 50-69% stenosis L ICA -Will need outpatient surveillanceUnShelby Memorial Hospital07-02-2025 NoteHospital Medicine Daily Progress Note - 03/19/2025 8:02 AM; Room: [address] [place] [address] Admission: 03/13/2025 1:02 AM; Length of stay: 6 days THE HOSPITALIST TEAM PREFERS TO USE Phonetime FOR NON-URGENT COMMUNICATION 7AM-7PM. IF I DO NOT RESPOND WITHIN 20 MINUTES OR URGENT MATTERS, PLEASE CALL THROUGH THE HAIRMASTERS MANAGER. FROM 7PM-7AM, PLEASE PAGE [phone](COVR). Code Status: Full Code Barriers to Discharge: [...] Hypertensive emergency NSTEMI (non-ST elevated myocardial infarction) ([facility]) Acute kidney injury superimposed on chronic kidney disease -likely 2/2 medication non-adherence - renal negative for stenosis -aldosterone, renin wnl -Required intermittent cardene -BP management per Nephrology, appreciate recs Stage 4 chronic kidney disease ([facility]) -TOMASA on CKD [...] diabetes mellitus with other diabetic kidney complication ([facility]) -[facility] SSI Tobacco dependence -NRT -Advised on cessation Other abnormalities of gait and mobility -PT/OT following -Plan for [facility] dispo Severe protein-calorie malnutrition ([facility]/HCC) -RD following, see below Nutrition Screen: [...] Academy of Nutrition and Dietetics and the [place] [employer] of Enteral and Parenteral Nutrition, meets [...] Results from last 7 (more content not included)...[facility]07-01-2025 NotePhysical Therapy Physical Therapy Treatment Patient [...] Clicks T-Score: 20 Assessment/Plan PT Assessment 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 Summary: pt amb 115ft RW with SBAof [...] (from Physical Therapy) Active Problems Problem: [place] [facility] Start Date: 03/13/25 Goal Start Date Expected End Date End Date Patient will perform bed mobility from flat bed independently without use of bed rails. 03/13/25 04/12/25 -- Goal Star (more content not included)...[facility] 03-18-2025 NoteReceived update from [facility] office, they will accept. Updated pt. Anticipate Dc tomorrow per hospitalist note.[facility] 03-18-2025 NoteNephrology Progress Note Patient : Marleni Dennis; 74 y.o. Location: 4108/4108-01 Attending: Erickson Cabrera MD Admit Date: 03/13/2025 Hospital Day: 5 Reason for Consult: CKD IV with uncontrolled hypertension. Subjective: History of present illness: Marleni Dennis is a 74 y.o. female who was transferred from [facility] after presenting with weakness after a fall as well as uncontrolled hypertension. She has pertinent past medical history of hypertension secondary to renal artery stenosis, CKD IV, CAD s/p CABG and PCI with stent placement, obstructive sleep apnea. She presented to [facility] after a fall after showering as [...] does not regularly follow up with a strand buncher fine wire. She says she has a water pill [...] Dose Status apixaban (Eliquis) 2.5 mg tablet [id number] TAKE 1 TABLET BY MOUTH TWICE A DAY FOR 90 DAYS Historical Provider, Active aspirin 81 mg EC tablet [id number] Take 1 tablet every day by oral route. Historical ProviderMD Flag for Review buPROPion (Wellbutrin) 75 mg tablet [id number] Yes Take 75 mg by mouth twice a day. Historical ProviderMD Active carvedilol (Coreg) 12.5 mg tablet [id number] No Take 25 mg by mouth with breakfast and with evening meal. Patient not taking: Reported on 03/13/2025 Historical Provider, Not Taking Active DULoxetine (Cymbalta) [address] capsule [id number] Take 30 mg by mouth every other day. Weaning off of duloxetine (takes 60 mg daily AND 30 mg every other day_) Historical Provider, Active DULoxetine (Cymbalta) [address] capsule [id number] Take 1 tablet by mouth in the morning. Weaning off of duloxetine (takes 60 mg daily AND 30 mg every other day_) Historical Provider, Active ezetimibe (Zetia) 10 mg tablet [id number] Take 1 tablet by mouth in the morning. Historical Provider, Active fenofibrate (Tricor) 145 mg tablet 34717 (more content not included)... [facility]07-01-2025 NotePhysician Clarification Please review the following and provide your response below. Please specify the type of NSTEMI: --NSTEMI --CO Type 2, please document underlying cause --NSTEMI Ruled out --Demand ischemia (no NSTEMI) --Elevated troponins without NSTEMI --Other specified --Clinically unable to determine Additional Notes: Demand ischemia (no NSTEMI) This documentation will become part of the patient's medical record.[facility]07-01-2025 Note-TOMASA on CKD during admission, likely ATN -Cr upward trend, if improved tomorrow then discharge -Daily BMP -Defer fluids to NephrologyUnShelby Memorial Hospital07-01-2025 Note- Continue LexaproUnShelby Memorial Hospital07-01-2025 Note-PT/OT following -Plan for [facility] dispoUnShelby Memorial Hospital07-01-2025 Note-would benefit repeating duplex scan of the abdomen as an outpatientUnShelby Memorial Hospital07-01-2025 Note-NRT -Advised on cessationUnShelby Memorial Hospital07-01-2025 Note-RD following, see belowUnShelby Memorial Hospital07-01-2025 Note-MCS SSI [facility]07-01-2025 Note-likely 2/2 medication non-adherence -US renal negative for stenosis -aldosterone, renin wnl -Required intermittent cardene -BP management per Nephrology, appreciate recsUniversity of [facility]07-01-2025 Note-Prior episodes of DVT, on Eliquis. Physical exam showed evidence of LLE swelling. -b/l LE doppler negative for DVTWadsworth-Rittman Hospital07-01-2025 Note-Continue Zetia, aspirin -ultrasound showing <50% stenosis R ICA, 50-69% stenosis L ICA -Will need outpatient surveillanceUnShelby Memorial Hospital07-01-2025 Note-Continue Zetia, fenofibrate, aspirinUnShelby Memorial Hospital 03-18-2025 NoteHospital Medicine Daily Progress Note - 03/18/2025 7:20 AM; Room: [address] [place] [address] Admission: 03/13/2025 1:02 AM; Length of stay: 5 days THE HOSPITALIST TEAM PREFERS TO USE Phonetime FOR NON-URGENT COMMUNICATION 7AM-7PM. IF I DO NOT RESPOND WITHIN 20 MINUTES OR URGENT MATTERS, PLEASE CALL THROUGH THE HAIRMASTERS MANAGER. FROM 7PM-7AM, PLEASE PAGE [phone](COVR). Code Status: Full Code Barriers to Discharge: [...] appreciate recs Stage 4 chronic kidney disease ([facility]/HCC) -TOMASA on CKD during admission, likely [...] diabetes mellitus with other diabetic kidney complication ([facility]) -MCS SSI Tobacco dependence -NRT -Advised on cessation Other abnormalities of gait and mobility -PT/OT following -Plan for [facility] dispo Severe protein-calorie malnutrition (CMS/HCC) -RD [...] Academy of Nutrition and Dietetics and the [place] Society of Enteral and Parenteral Nutrition, meets [...] 03/13/25 1748 03/13/25 073 (more content not included)...[facility]07-01-2025 NoteProblem: Safety - Adult Goal: Free from fall injury Outcome: Progressing The patient is Moderately Stable - Low risk of patient condition declining or worsening The patient's goals for the shift include comfort The clinical goals for the shift include VSS, safetyUnShelby Memorial Hospital06-30-2025 NotePhysical Therapy Name: Marleni Dennis Date of : 1950 Today's Date: 03/17/25 Oh no you can't work with me today. Session okay per RN, requests pt's BP be recorded prior to mobility. Pt supine in bed upon arrival, refuses PT this afternoon d/t being too tired. Is, however, agreeable to this staff writer obtaining BP: 139/50 mmHg. RN aware. Check No Charge Time attempted: 1425 Giancarlo Calderón, PT, DPTUnShelby Memorial Hospital06-30-2025 Note-TOMASA on CKD during admission, likely ATN -Cr upward trend -Daily BMP -Defer fluids to NephrologyWadsworth-[facility]06-30-2025 Note- likely 2/2 medication non-adherence -US renal negative for stenosis -aldosterone, renin wnl -Required intermittent cardene -BP management per Nephrology, appreciate recsUniversAdams County Regional Medical Center06-30-2025 Note-likely 2/2 medication non-adherence -US renal negative for stenosis -aldosterone, renin wnl -Required intermittent cardene -BP management per Nephrology, appreciate recsUniverslancaster municipal hospital of [facility]06-30-2025 NoteOccupational Therapy Occupational Therapy Treatment Patient Name: [...] meals? 4 Total Score OT [facility] [facility] 21 OT Goals: Multi-Disciplinary Problems (from Occupational Therapy) Active Problems Problem: Balance Start Date: 03/14/25 Goal Start Date Expected End Date End Date LTG - Patient will maintain stand balance to (more content not included)... [facility]06-30-2025 Note-Continue LexaproUnShelby Memorial Hospital06-30-2025 Note-Continue Zetia, aspirin -ultrasound showing <50% stenosis R ICA, 50-69% stenosis L ICA -Will need outpatient surveillanceUnShelby Memorial Hospital06-30-2025 Note-NRT -Advised on cessationUnShelby Memorial Hospital06-30-2025 Note-MCS SSI [facility]06-30-2025 Note-RD following, see below [facility]06-30-2025 Note-PT/OT following -Plan for [facility] dispoUnShelby Memorial Hospital06-30-2025 Note-would benefit repeating duplex scan of the abdomen as an outpatientUnShelby Memorial Hospital06-30-2025 Note-Prior episodes of DVT, on Eliquis. Physical exam showed evidence of LLE swelling. -b/l LE doppler negative for DVTUnShelby Memorial Hospital06-30-2025 Note-Continue Zetia, fenofibrate, aspirinUnShelby Memorial Hospital 03-17-2025 NoteHospital Medicine Daily Progress Note - 03/17/2025 8:33 AM; Room: [address] [place] [address] Admission: 03/13/2025 1:02 AM; Length of stay: 4 days THE HOSPITALIST TEAM PREFERS TO USE [email or web address] CHAT FOR NON-URGENT COMMUNICATION 7AM-7PM. IF I DO NOT RESPOND WITHIN 20 MINUTES OR URGENT MATTERS, PLEASE CALL THROUGH THE HAIRMASTERS MANAGER. FROM 7PM-7AM, PLEASE PAGE [phone](COVR). Code Status: Full Code Barriers to Discharge: [...] Hypertensive emergency NSTEMI (non-ST elevated myocardial infarction) ([facility]) Acute kidney injury superimposed on chronic kidney disease -likely 2/2 medication non-adherence - renal negative for stenosis -aldosterone, renin wnl -Required intermittent cardene -BP management per Nephrology, appreciate recs Stage 4 chronic kidney disease ([facility]) -TOMASA on CKD [...] diabetes mellitus with other diabetic kidney complication ([facility]) -[facility] SSI Tobacco dependence -NRT -Advised on cessation Other abnormalities of gait and mobility -PT/OT following -Plan for [facility] dispo Severe protein-calorie malnutrition ([facility]/HCC) -RD following, see below Nutrition Screen: [...] Academy of Nutrition and Dietetics and the [place] Society of Enteral and Parenteral Nutrition, meets [...] 03/13/25 0738 SODIUM mmol (more content not included)...[facility] 03-17-2025 NoteNephrology Progress Note Patient : Marleni Dennis; 74 y.o. Location: [facility]8/4108-01 Attending: Erickson Cabrera MD Admit Date: 03/13/2025 Hospital Day: 4 Reason for Consult: CKD IV with uncontrolled hypertension. Subjective: History of present illness: Marleni Dennis is a 74 y.o. female who was transferred from [facility] after presenting with weakness after a fall as well as uncontrolled hypertension. She has pertinent past medical history of hypertension secondary to renal artery stenosis, CKD IV, CAD s/p CABG and PCI with stent placement, obstructive sleep apnea. She presented to [facility] after a fall after showering as [...] does not regularly follow up with a strand buncher fine wire. She says she has a water pill [...] Dose Status apixaban (Eliquis) 2.5 mg tablet [id number] TAKE 1 TABLET BY MOUTH TWICE A DAY FOR 90 DAYS Historical ProviderMD Active aspirin 81 mg EC tablet [id number] Take 1 tablet every day by oral route. Historical ProviderMD Flag for Review buPROPion (Wellbutrin) 75 mg tablet [id number] Yes Take 75 mg by mouth twice a day. Historical ProviderMD Active carvedilol (Coreg) 12.5 mg tablet [id number] No Take 25 mg by mouth with breakfast and with evening meal. Patient not taking: Reported on 03/13/2025 Historical ProviderMD Not Taking Active DULoxetine (Cymbalta) [address] capsule [id number] Take 30 mg by mouth every other day. Weaning off of duloxetine (takes 60 mg daily AND 30 mg every other day_) Historical ProviderMD Active DULoxetine (Cymbalta) [address] capsule [id number] Take 1 tablet by mouth in the morning. Weaning off of duloxetine (takes 60 mg daily AND 30 mg every other day_) Historical ProviderMD Active ezetimibe (Zetia) 10 mg tablet [id number] Take (more content not included)... [facility]06-29-2025 Note Attestation signed by Sharee Mckeon [...] Faculty, Division of Nephrology, Department of Medicine, [facility]. Nephrology Progress Note Patient : Marleni Dennis; 74 y.o. Location: [facility]8/4108-01 Attending: Erickson Cabrera MD Admit Date: 03/13/2025 Hospital Day: 3 Reason for Consult: CKD IV with uncontrolled hypertension. Subjective: History of present illness: Marleni Dennis is a 74 y.o. female who was transferred from [facility] after presenting with weakness after a fall as well as uncontrolled hypertension. She has pertinent past medical history of hypertension secondary to renal artery stenosis, CKD IV, CAD s/p CABG and PCI with stent placement, obstructive sleep apnea. She presented to [facility] after a fall after showering as [...] does not regularly follow up with a strand buncher fine wire. She says she has a water pill [...] Dose Status apixaban (Eliquis) 2.5 mg tablet [id number] TAKE 1 TABLET BY MOUTH TWICE A DAY FOR 90 DAYS Historical Provider, Active aspirin 81 mg EC tablet [id number] Take 1 tablet (more content not included)... [facility]06-29-2025 Note-likely 2/2 medication non-adherence -US renal negative for stenosis -pending aldosterone, renin -Required intermittent cardene -Continue Coreg 25, hydralazine 100 TID, nifedipine 60 BID -Due to consulting services changes orders without communication to primary, will defer all BP management to Nephrology to avoid inevitable complications from multiple prescribers.[facility]06-29-2025 Note-TOMASA on CKD during admission, likely ATN -Cr mild increased today -Daily BMP -Defer fluids to NephrologyUnShelby [facility]06-29-2025 Note- MCS SSIUnShelby Memorial Hospital06-29-2025 Note-Continue Zetia, aspirin -ultrasound showing <50% stenosis R ICA, 50-69% stenosis L ICA -Will need outpatient surveillanceUnShelby Memorial Hospital06-29-2025 Note-RD following, see belowUnShelby Memorial Hospital06-29-2025 Note- PT/OT following -Plan for HHC dispoUnShelby Memorial Hospital06-29-2025 Note-NRT -Advised on cessationUnShelby Memorial Hospital06-29-2025 Note-would benefit repeating duplex scan of the abdomen as an outpatientUnShelby Memorial Hospital06-29-2025 Note-Prior episodes of DVT, on Eliquis. Physical exam showed evidence of LLE swelling. -b/l LE doppler negative for DVTUnShelby Memorial Hospital06-29-2025 Note-Continue LexaproUnShelby Memorial Hospital06-29-2025 Note-Continue Zetia, fenofibrate, aspirinUnShelby Memorial Hospital06-29-2025 Note Hospital Medicine Daily Progress Note - 03/16/2025 7:20 AM; Room: [address] [place] [address] Admission: 03/13/2025 1:02 AM; Length of stay: 3 days THE HOSPITALIST TEAM PREFERS TO USE Phonetime FOR NON-URGENT COMMUNICATION 7AM-7PM. IF I DO NOT RESPOND WITHIN 20 MINUTES OR URGENT MATTERS, PLEASE CALL THROUGH THE HAIRMASTERS MANAGER. FROM 7PM-7AM, PLEASE PAGE [phone](COVR). Code Status: Full Code Barriers to Discharge: [...] multiple prescribers. Stage 4 chronic kidney disease ([facility]/HCC) -TOMASA on CKD during admission, likely [...] diabetes mellitus with other diabetic kidney complication ([facility]) -MCS SSI Tobacco dependence -NRT -Advised on cessation Other abnormalities of gait and mobility -PT/OT following -Plan for [facility] dispo Severe protein-calorie malnutrition (CMS/HCC) -RD [...] Academy of Nutrition and Dietetics and the [place] [employer] of Enteral and Parenteral Nutrition, meets [...] Units 03/16/25 0500 03/15/25 (more content not included)...[facility]06-28-2025 Note -likely 2/2 medication non-adherence - renal negative for stenosis -pending aldosterone, renin -Required intermittent cardene -Continue Coreg 25, hydralazine 100 TID, nifedipine 30 BID -Avoid relative hypotension and rapid changes to medications prior to steady state in order to avoid such labile BPUnShelby Memorial Hospital 03-15-2025 Note-would benefit repeating duplex scan of the abdomen as an outpatientUnShelby Memorial Hospital06-28-2025 Note-PT/OT following -Plan for [facility] dispoUnShelby Memorial Hospital06-28-2025 Note-Prior episodes of DVT, on Eliquis. Physical exam showed evidence of LLE swelling. -b/l LE doppler negative for DVTUnShelby Memorial Hospital06-28-2025 Note-TOMASA on CKD during admission, likely ATN -Cr plateau today, hold fluids and monitor daily BMP -If improved tomorrow and BP stable then dischargeUnShelby Memorial Hospital06-28-2025 Note-Continue Zetia, fenofibrate, aspirinUnShelby Memorial Hospital06-28-2025 Note-Continue Zetia, aspirin -ultrasound showing <50% stenosis R ICA, 50-69% stenosis L ICA -Will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 for home health care Routine lab draw Advanced care planning/counseling discussion [facility] Narrative No data available for this section [facility] Hospital Discharge instructions Additional Instructions Long-Term Facility to manage care: - Full code - PT/OT eval and treat - Routine vital signs - Avoid NSAIDs - GI office will follow-up pathology for H. pylori and if positive recommend 14 days of quad therapy - otherwise, patient will not need outpatient GI follow-up - Renal function panel in 7 days [facility] Work [facility]: [place] note No data available for this section [facility] reason for referral (narrative)No reason for referral information [facility] Work Phone: Summary Purpose Family History [...] April 08, 2025 3:58 pm Sent by Cheese Specialist April 08, 2025 9:1 6pm Reason for [...] section and content) DATE CREATED AUTHOR 07/06/2018 [facility] DATE CREATED AUTHOR AUTHOR'S ORGANIZ ATION 01/26/2023 [facility] DATE CREATED AUTHOR AUTHOR'S ORGANIZ ATION 11/19/2024 [facility] DATE CREATED AUTHOR AUTHOR'S ORGANIZ ATION 04/07/2025 [facility] DATE CREATED AUTHOR AUTHOR'S ORGANIZ ATION 05/27/2025 [facility] DATE CREATED AUTHOR AUTHOR'S ORGANIZ ATION 06/10/2025 [facility] EPIC DATE CREATED AUTHOR [...] 2024Team MemberRelationshipSpecialtyStart DateEnd Date Jack Vogt MD [address] [place] [address] [address] [place] [address] PCP - GeneralInternal Medicine01/24/23am MemberRelationshipSpecialtyStart Date End Date Jack Vogt MD [address] [place] [address] PCP - GeneralInternal Medicine01/24/23am MemberRelationshipSpecialtyStart Date End Date aJck Vogt MD [address] [place] [address] PCP - GeneralInternal Medicine01/24/23am MemberRelationshipSpecialtyStart Date End Date Jack Vogt MD [address] [place] [address] PCP - GeneralInternal Medicine01/24/23am MemberRelationshipSpecialtyStart Date End Date Jack Vogt MD [address] [place] [address] PCP - GeneralInternal Medicine01/24/23am MemberRelationshipSpecialtyStart Date End Date Jack Vogt MD [address] [place] [address] PCP - GeneralInternal Medicine01/24/23am MemberRelationshipSpecialtyStart Date End Date Jack Vogt MD [address] [place] [address] PCP - GeneralInternal Medicine01/24/23am MemberRelationshipSpecialtyStart Date End Date Jack Vogt MD [address] [place] [address] PCP - GeneralInternal Medicine5/9/23Team MemberRelationshipSpecialtyStart Date End Date Jack Vogt MD [address] [place] [address] PCP - GeneralInternal Medicine01/24/23Team MemberRelationshipSpecialtyStart Date End Date Jack Vogt MD [address] [place] [address] PCP - GeneralInternal Medicine01/24/23Team MemberRelationshipSpecialtyStart Date End Date Jack Vogt MD [address] [facility] [address] [place] [address] PCP - GeneralInternal Medicine01/24/23 Team Status: Inactive [...] MemberRelationshipSpecialtyStart DateEnd Date Jack Vogt MD [address] [facility] [address] [place] [address] PCP - GeneralInternal Medicine01/24/23Team MemberRelationshipSpecialtyStart Date End Date Jack Vogt MD [address] [facility] [address] [place] [address] PCP - GeneralInternal Medicine01/24/23Team MemberRelationshipSpecialtyStart Date End Date Jack Vogt MD [address] [facility] [address] [place] [address] PCP - GeneralInternal Medicine01/24/23 Chantelle Recio, NODULIZER [address] [place] [address] Social WorkerDecatur County Hospitally Medicine06/10/25Team MemberRelationshipSpecialtyStart DateEnd Date Jack Vogt MD [address] [facility] [address] [place] [address] PCP - GeneralInternal Medicine01/24/23 Chantelle Recio, NODULIZER [address] [place] [address] Social WorkerLawrence F. [facility]igley [facility] Medicine06/10/25Team MemberRelationshipSpecialtyStart DateEnd Date Jack Vogt MD [address] [facility] [address] [place] [address] PCP - GeneralInternal Medicine01/24/23 Chantelle Recio, NODULIZER [address] [place] [address] [address] Social WorkerFamily Medicine06/10/25 Valerie Go, RN [address] [facility] [address] [place] [address] Registered NurseFamily Rgfmwpcx78/13/25 Goals (unrecognized section and content) Type Treatment Intervention Code Status: Full Code Reason for Visit (unrecogniz ed section and content) ReasonCommentsMed RefillReasonCommentsMedicare Annual Wellness Visit Subsequent Med RefillWould like rx for hydrocodone--states she gets 2ReasonCommentsDiabetes EdemaResultsLab resultsMed RefillCymbalta-both doses- [facility] bellNeed note stating she can participate in water exercisesPt brought letter from ins co re: taking fenobibrate and zetia togetherReasonCommentsFollow-upTransferred to [facility] from [facility] 03/13/25 dx: HTN urgency,NSTEMI discharged home03/20/25 med changes made follow up with cardiology 04/02/25 and nephrology 05/06/25discuss referralPt would like a referral [place] Onset DateCommentsMed Rbhmty6203/25/2025ReasonCommentsHypertensionswelling of lower extremitiesright flank painReasonCommentsWeight CkriDsbproPueymkyrW8Y for home health FOR RECORDS PERTAINING TO [...] BE BASED ON THE PRIMARY CLINICAL RECORDS. [facility]. provides no warranty or guarantee of the accuracy or completeness of information in this document.
--- OUTSIDE RECORDS SUMMARY | 2025-07-11 13:32 | XMS_ITS | Clinical Summary ---
Author Organization [facility] Address [address], [address] [place] [address] Care Team Providers Care Computer Help Desk Representative Name Role Phone Jack Vogt MD Primary Care Provider [phone] Allergies Active AllergyReactionsCriticalityNoted DateCommentsIodineAnaphylaxisHigh Hives, and anaphylactic reaction TduzgbIvuowovkqrTawjkr68/17/2018 skin irritation and itching with jewelry worn Shellfish Protein-Containing Drug CzcvszsdNpsyrnxpmggYthe15/17/2018Simvastatin Other (See Comments) Medications MedicationSigDispense QuantityRefillsLast FilledStart DateEnd DateStatus aspirin 81 MG tablet Take 81 mg by mouth dailyActive amLODIPine (NORVASC) 10 MG tablet Take 10 mg by mouth dailyActive zolpidem (AMBIEN) 10 MG tablet Take 10 mg by mouth nightly..02/27/2018Active valsartan (DIOVAN) 320 MG tablet Take 320 mg by mouth wovbg070Active tiZANidine (ZANAFLEX) 4 MG tablet Take 4 mg by mouth 2 times dwgxm894Active LYRICA 75 MG capsule Take 75 mg by mouth daily..Active pantoprazole (PROTONIX) 40 MG tablet Take 40 mg by mouth vxubt260Active NIFEdipine (PROCARDIA XL) 90 MG extended release tablet Indications:dose recently upped to 120mgTake 120 mg by mouth daily02/26/2018 Active isosorbide mononitrate (IMDUR) 60 MG extended release tablet Take 60 mg by mouth daily03/19/2018Active fenofibrate (TRICOR) 145 MG tablet Take 145 mg by mouth uwneg073Active nitroGLYCERIN (NITROSTAT) 0.4 MG SL tablet Take [...] Active Problems ProblemNoted DateDiagnosed DateSpondylolisthesis of lumbar ahbljs8106/04/2018 Cardiovascular stress test ttwdupyd59/05/2018Carotid artery wwrfyepb01/05/2018 Chest pain05/23/2018Coronary twovedgyxcemswhg15/05/3471Baubmttfovtqc56/05/2018 Bruwkzqsrrfwbm28/05/2018Hypertensive fcungpom55/05/7957Qcmaeivsyupfuv16/05/2018 Peripheral vascular vbbvqvk1105/23/2018Spondylolisthesis of lumbosacral region 05/23/2018 Family History Medical [...] Date RecordedSex Assigned at BirthNot on fileLegal JtlArxfyu73/10/2013 1:14 PM ESTGender IdentityNot on fileSexual OrientationNot on file Last Filed Vital Signs Vital SignReadingTime TakenCommentsBlood Izspigwf373/4109 7:23 AM EDT Fwuvj8943 7:23 AM GGAHknxrdtiyqk69.7 ??C (98 ??F)06/28/2019 10:26 AM EDT Respiratory Fftd560606/06/2018 10:48 PM EDTOxygen Imwyzrknhs58%06/07/2018 7:23 AM EDTInhaled Oxygen Concentration--Dwcskg33.2 kg (190 lb)06/28/2019 10:26 AM EDT Mrvcnt505 cm (5' 3 )06/28/2019 10:26 AM EDTBody Mass Index33.6606/28/2019 10:26 AM EDT Plan of Treatment Not on file Medical Devices ImplantedTypeAreaManufacturerDevice IdentifierShelf Expiration DateModel / Serial / LotGraft Canc Chip 30cc [id number] - [id number] Implanted:Qty: 1 on 06/04/2018 by Per Barber MD at [facility] Bone/Graft/Tissue/Human/SynthN/A: Spine LumbarMUSCULOSKELETAL TRANSPLANT FND-PMM 04/02/[id number] / [id number] / Kit Sealant Surgiflo Hemostatic Matrix - [id number] Implanted:Qty: 1 on 06/04/2018 by Per Barber MD at [facility] Bone/Graft/Tissue/Human/SynthN/A: Spine LumbarJNJ: [employer]-PMM 04/17/20202994 / [id number] / Kit Sealant Surgiflo Hemostatic Matrix Implanted:Qty: 1 on 06/04/2018 by Per Barber MD at [facility] Bone/Graft/Tissue/Human/SynthN/A: Spine LumbarJNJ: [employer]-PMM 01/15/[id number] / / [id number] Polyaxial Reline-O 2s 6.5x55mm Implanted:Qty: 3 on 06/04/2018 by Per Barber MD at [facility] Screw/Plate/Nail/RodN/A: Spine LumbarNUVASIVE INC-[id number] / / Screw Polyaxial Reline-O 6.5x50mm Implanted:Qty: 1 on 06/04/2018 by Per Barber MD at [facility] Screw/Plate/Nail/RodN/A: Spine LumbarNUVASIVE INC-[id number] / / Wally-Cellular Bone Matrix 10cc - [id number] Implanted:Qty: 1 on 06/04/2018 by Per Barber MD at [facility] SpineN/A: Spine LumbarNUVASIVE INC-PMM01/20/[id number] / [id number] / Screw Lk Reline Opn Tulip 5.5mm Implanted:Qty: 6 on 06/04/2018 by Per Barber MD at [facility] SpineN/A: Spine LumbarNUVASIVE INC-[id number] / / Impl Spine Coroent Mp Lg [id number] 4deg Implanted:Qty: 2 on 06/04/2018 by Per Barber MD at [facility] SpineN/A: Spine LumbarNUVASIVE INC-[id number] / / Impl Spine Emmanuel Reline-O Lrdtc 5.5x70mm Implanted:Qty: 2 on 06/04/2018 by Per Barber MD at [facility] SpineN/A: Spine LumbarNUVASIVE INC-[id number] / / Reline Reduction Screw Implanted:Qty: 2 on 06/04/2018 by Per Barber MD at [facility] N/A: Spine Lumbar Insurance Advance Directives * Full Code (Latest Code Status on File) Date ActivatedDate InactivatedComments06/04/2018 6:16 PM06/07/2018 7:05 PM Care Teams Team MemberRelationshipSpecialtyStart DateEnd Date Jack Vogt MD [address] [place] [address] PCP - GeneralInternal Medicine03/13/18
[2025-07-11 13:57] LABS: Protein Creatinine Ratio Urine 2.49; Total Protein Urine Random 242.1 mg/dL (<=11.9)
[2025-07-11 14:26] LABS: Glucose Urine UA NEGATIVE (NEGATIVE)
[2025-07-11 14:35] LABS: Cast Seen? SEEN #/LPF (NONE SEEN); Crystals Seen? None Seen #/HPF (None Seen)
== END 2025-07-11 13:28 | disposition home or self-care (01) ==
LOC: LAB 13:27
PROVIDERS: PCP Internal Medicine; Visit Provider Internal Medicine Nephrology
DX: N18.4 Chronic kidney disease, stage 4 (severe) (principal); R80.9 Proteinuria, unspecified; N17.9 Acute kidney failure, unspecified; D64.9 Anemia, unspecified
CPT/HCPCS: 81001; 82570; 84156

== ENCOUNTER 2025-07-22 17:48 | Outpatient (REF) | payer MEDICARE, SELFPAY ==
--- OUTSIDE RECORDS SUMMARY | 2025-07-15 11:52 | XMS_ITS | Continuity of Care Document ---
Author Organization [facility] Address [address] [place] [address] Phone Care Team Providers Care Dry Janitor Name Role Phone Jack Vogt II Primary Care Provider Elsy Patino MD Attending Provider Care Teams Patient Care Team Team Status: Active Member Role/Relationship Status Dates Jack Vogt II MD Primary Care Provider Active Visit Care Team Team Status: Active Member Role/Relationship Status Dates Jack Vogt II MD Primary Care Provider Active Start: July 09, 2025 Malinda Silva ProviderActiveStart: July 09, 2025 Patient Care Team Team Status: Active Member Role/Relationship Status Dates Jack Vogt II MD Primary Care Provider Active Start: July 11, 2025 Malinda Silva ProviderActiveStart: July 11, 2025 Patient Care Team Team Status: Inactive Member Role/Relationship Status Dates Jack Vogt II MD Primary Care Provider Active Start: July 15, 2025 End: July 15Malinda Schwartz ProviderActiveStart: July 15, 2025 End: July 15, 2025 Chief Complaint and Reason for Visit Chief Complaint Admit Date renal 3 month f/u July 15, 2025 4 :07pm Reason for Visit Admit Date Anemia July 15, 2025 4 :07pm Chronic kidney disease, stage IV (severe ) July 15, 2025 4:07pm Folate deficiency July 15, 2025 4 :07pm Hyperparathyroidism July 15, 2025 4 :07pm Hypocalcemia July 15, 2025 4 :07pm Hypokalemia July 15, 2025 4 :07pm Hypomagnesemia July 15, 2025 4 :07pm Iron deficiency July 15, 2025 4 :07pm Proteinuria July 15, 2025 4 :07pm Hypertensive nephropathy July 15, 2 025 4:07pm Allergies, Adverse Reactions, Alerts Allergen Type Severity Reaction Last Updated Verified Status iodine Allergy Unknown Anaphylaxis July 15, 2025 9:53am Yes Active pneumococcal vaccine Allergy Unknown Edema Octo 2024 9:53am Yes Active Ppwpoaz-OUT-EpR Reductase Inhibitor Allergy Unknown Unknown Reaction June 9:53am Yes Active Social History Smoking Status Status Start Date End Date Date of Observa tion Ex-smoker (finding) April 10, 2025 1:12pm Observation Status Observation Response Date of Response Legal Sex Female (finding) [facility] Family History Relationship Condition Age at Onset Recorded Date/T katherine mother Myocardial infarction Unknown fatherMyocardial infarctionUnknown Problems Active Problems Problem Diagnosis/Recorded Date Onset Date Stat TOMASA (acute kidney injury) March 27, 2021 11:35am Unkn own Active Poor dental hygiene November 23, 2023 5:49pm Unknown Active Bilateral primary osteoarthritis of knee November 22 5:50pm Unknown Active Nicotine use November 23, 2023 4:20pm Unknown Activ e Chronic kidney disease, stage IV (severe) April 08, 2 025 4:06pm Unknown Active Anemia March 24, 2021 10:32pm Unknown Activ e Weakness generalized November 23, 2023 5:49pm Unknown Active Folate deficiency July 15, 2025 4:20pm Unknown Active Hyperparathyroidism July 15, 2025 4:21pm Unknown Active Lymphedema November 23, 2023 5:49pm Unknown Activ e Proteinuria April 08, 2025 4:06pm Unknown Activ e Left knee pain November 22, 2023 6:31pm Unknown Act felipe Hypokalemia July 15, 2025 4:22pm Unknown Ac tive Iron deficiency July 15, 2025 4:20pm Unknown Active Hypomagnesemia July 15, 2025 4:20pm Unknown Active Hypocalcemia July 15, 2025 4:21pm Unknown Ac tive Inactive/Resolved Problems Problem Diagnosis/Recorded Date Onset Date Stat us Hypertensive emergency April 08, 2025 10:14pm Unknown Resolved Acute kidney injury superimposed on CKD April 08 10:15pm Unknown Resolved Lower GI bleed March 24, 2021 10:32pm Unknown Res olved Melena April 08, 2025 10:15pm Unknown Reso lved Hypertensive nephropathy April 08, 2025 4:46pm Unknow n Resolved Fluid overload April 08, 2025 10:15pm Unknown Re solved Medications Medication Status Dose Units Route Directions Qty Days Refills S tart Date Stop Date End Date Reason(s) Instructions Adherence Meloxicam 15 mg tablet Discontinued 15 MG PO daily 30 30 2 March 11, 2024 7:39am June 10, 2024 7:34amDiclofenac Sodium 1 % hnjTnbdfiqqauxl1SBHJOSCGCnn directed as needed for knee yufi6485Haja 2023 7:39amJuly 2024 4:11pm Meloxicam 15 mg tabletDiscontinued0.ROUTE.XGANQRJ066Pmwrouhly 2023 7:33am April 08, 2025 4:14pmTAKE 1 TABLET BY MOUTH EVERY DAYSpironolactone (Aldactone) 25 mg sfxwtvNlidzx96ASSNYhsyv166Ucxntli 2024 12:00amComplies with drug therapyFerrous Sulfate 325 mg (65 mg iron) dgjvfeOjmyoq199OFEGCjbcj July 10, 2025 12:00amComplies with drug therapyPotassium Chloride 20 mEq tablet extended vjgjthvTrauyt87DZBDFWugja953Nqkvopk 2024 12:00amComplies with drug therapyFolic Acid 1 mg pjoixaLzlelh3VMNIYaiim848Bvxtalu 2024 12:00amComplies with drug therapyFurosemide 40 mg lqlppoPqxmbjikdyfq20HNWSVchxo as needed for swellingJuly 2020 12:00amJuly 2024 4:13pmHydrocodone- Acetaminophen 5-325 mg mroqxgApecugdemzzs4VGZBQC1D as needed for PainJuly 2020 12:00amJuly 2020 11:36amIsosorbide Mononitrate 60 mg tablet extended release 24 fvQsqbcspfnmar16HGHLUgewyQwsn 2020 12:00amJuly 2024 4:14pm Nifedipine 90 mg tablet extended release 42oyVwjwmxfepreq10QOYCPepzrPozf 2020 12:00amJuly 2024 4:19pmPantoprazole 40 mg tablet,delayed release (DR/EC)Zpqxssifqgce88INENVudqbAnnn 2020 12:00amJuly 2024 11:57am Valsartan 320 mg bhnzogBiznvvqxxnwe277JCHLFxkbuLkte 2020 12:00amJuly 2024 4:15pmMetoprolol Tartrate 50 mg jphobbHqvsqesmszim92XMYXSiqhj dailyJuly 2020 12:00amJuly 2024 4:14pmZolpidem 10 mg ssndvpYxtaogouohbp24ERQK BedtimeJu2020 12:00amJuly 2024 4:19pmEzetimibe 10 mg tabletActive 10MGPODailyJuly 2020 12:00amComplies with drug therapyDuloxetine 30 mg capsule,delayed release(DR/EC)Myruhrurxexc53NBZPUvymsuuAbtq 2020 12:00am April 08, 2025 4:12pmPregabalin 75 mg trviimvAbewqfzwbjho29KLSIKtkls dailyJuly 2020 12:00amJuly 2024 4:15pmApixaban (Eliquis) 5 mg tabletActive2.5MG POTwice dailyJuly 2020 12:00amOn Hold: Resume on 04/13/25.Complies with drug therapyAspirin 81 mg JfmtcnAcmsut77VUHASmekvDrjv 2020 12:00amComplies with drug therapyFenofibrate Nanocrystallized 145 mg tvqbzlFqxbvd573SJWFKaytb March 24, 2021 12:00amComplies with drug therapyOndansetron 4 mg Film Cvttpmixumhy8KUWXX1F as needed for NauseaJuly 2020 12:00amJuly 2020 11:37amGuaifenesin (Mucinex) 600 mg Tablet Extended Release 76feVweuuaqutjec8801 MGPOTwice daily as needed for slhfkukxgh94Ggwc 2020 12:00amMarch 2023 3:26pmZolpidem 10 mg riudabSrxxpfpuvjwy1KXCLWfkxqmv as needed for insomniaJuly 2024 4:15pmJuly 2024 11:57amNifedipine 90 mg tablet extended release 41zuLhjitk62WODOEqdfp dailyJuly 2024 4:18pmComplies with drug therapy Furosemide 40 mg JegaflQxrnes27YJOCPAO@0800,368051027Ypwk 2024 12:00am Complies with drug therapyPantoprazole 40 mg tablet,delayed release (DR/EC) Mosbhx01MGYGOroyo oaazk0692Etib 2024 11:56amBID x 4 weeks then daily thereafterComplies with drug therapyZolpidem 10 mg yuxffwDmjauh7HTTYTfubnfl as needed for eveszxwg885Rdfy 2024 11:56amInsomnia Insomnia, unspecifiedComplies with drug therapyMinoxidil 2.5 mg TabletActive2.5 MGPOTwice ytfcu14Tqdf 2024 12:00amComplies with drug therapyMeloxicam 15 mg chruhtAgvhcgxaloac28PTWCawnwv24020Qtilt 2023 1:00amJune 2023 7:41amDiclofenac Sodium 1 % tplNlhbuwnamtrp2NVOOQKWXFoz directed as needed for knee mwsk6475Cdgul 2023 1:00amJune 2023 7:41amCarvedilol 25 mg tablet Zafcvr27ZTQEBikfc dailyJuly 2024 12:00amComplies with drug therapy Sennosides (Senna) 8.6 mg tabletActive8.6MGPODaily at bedtimeJuly 2024 12:00amComplies with drug therapyClonidine Hcl 0.1 mg tabletActive0.1MGPOThree times dailyJuly 2024 12:00amComplies with drug therapyMelatonin 3 mg gnmgltAkvgts8VYNDEwlyt at bedtimeJuly 2024 12:00amComplies with drug therapyHydralazine 100 mg sjwqtrUfiqvj051NZSOUtjkx times dailyJuly 2024 12:00amComplies with drug therapyDoxazosin 2 mg vvidzeXovekv7XOEABrypqDyvb 2024 12:00amComplies with drug therapyEscitalopram Oxalate 5 mg swvqsbKnptlp2FE PODailyJuly 2024 12:00amComplies with drug therapyMagnesium Oxide 400 mg (241.3 mg magnesium) gdfqrpTbwbcyyponfs634XTLFVxsyyYlcwjak 28th, 2025 12:00am July 15, 2025 4:39pmBumetanide 2 mg lnpailYhfokn2EXECCfxfo ryvsi714Xffwfni 2024 12:00amComplies with drug therapyMagnesium Oxide 400 mg (241.3 mg magnesium) kzadeyRxhysk920OLDSXkrwp dailyOctober 2024 4:39pmComplies with drug therapy Relevant Diagnostic Tests and/or Laboratory Data Laboratory Results Test Collection Date/Time Result Date/Time Result Interpretation Reference Range Result Comment Performing Site Vitamin B12 Level July 09, 2025 2:40pm July 09, 2025 2:40pm 437 pg/mL 232-1245Performed at: [facility] [address] [id number] Director: Raul Medel PhD, Phone: [phone] Hormone (Intact)July 09, 2025 2:40pmOct2024 2:40pm77 pg/mL Abnormal (applies to non-numeric results)15-65Performed at: [facility] [address] [id number] Director: Raul Medel PhD, Phone: [phone] LevelJuly 09, 2025 2:40pmOct2024 2:40pm0.6 mg/dLBelow lower panic limits1.8-2.4RESULTS CALLED TOUric AcidJuly 09, 2025 2:40pmOct2024 2:40pm8.1 mg/dLAbove high normal2.6-6.0Anion GapJuly 09, 2025 2:40pmOct2024 2:40pm16.3FolateOct2024 2:40pmOct2024 2:40pm4.80 ng/mLBelow low normal8.60-58.9025- Hydroxy Vitamin D TotalOct2024 2:40pmOct2024 2:40pm28.8 ng/mL<20 ng/mL Vit D deenmgyjf69-<30 ng/mL Vit D bihkpkfbbzmg56-940 ng/mL Vit D sufficient>100 ng/mL Potential ToxicityFerritinOct2024 2:40pmOct2024 2:40pm88.0 ng/mL8.0-252.0Iron SaturationOct2024 2:40pm July 09, 2025 2:40pm13.3 %HematocritOct2024 2:40pmOct2024 2:40pm26.8 %Below low cdruts18.0-48.0Urine Other CastsOct2024 12:10pmSEEN #/LPFAbnormal (applies to non-numeric results)NONE SEENUrine Random CreatinineJuly 11, 2025 12:10pmJuly 11, 2025 12:10pm97.33 mg/dL 20.00-300.00AlbuminJuly 09, 2025 2:40pmOct2024 2:40pm3.1 g/dL Below low normal3.4-5.0Iron LevelOct2024 2:40pmJuly 09, 2025 2:40pm40.0 ug/dLBelow low .0-170.0HemoglobinOct2024 2:40pm July 09, 2025 2:40pm9.1 g/dLBelow low .0-16.0Urine Other Crystals July 11, 2025 12:10pmNone Seen #/HPFNone SeenUrine Protein/Creatinine Ratio July 11, 2025 12:10pmOctober 2024 12:10pm2.49BUN/Creatinine Ratio July 09, 2025 2:40pmJuly 09, 2025 2:40pm20.3Total Iron Binding CapacityOct2024 2:40pmOctober 2024 2:72zl646.0 ug/dL250.0-450.0 Mean Corpuscular HemoglobinOctober 2024 2:40pmOct2024 2:40pm 29.0 pg26.7-34.0Urine BacteriaOctober 2024 12:10pmTRACE #/HPFAbnormal (applies to non-numeric results)NONE SEENUrine Random Total ProteinOctober 2024 12:10pmOctober 2024 12:12ut011.1 mg/dLAbove high normal<=11.9Blood Urea NitrogenOctober 2024 2:40pmOctober 2024 2:40pm65.0 mg/dLAbove high normal7.0-18.0Mean Corpuscular Hemoglobin ConcentOctober 2024 2:40pm October 2024 2:40pm34.0 g/dL29.9-35.2Urine BilirubinOctober 2024 12:10pmNEGATIVENEGATIVECalcium LevelOctober 2024 2:40pmOctober 2024 2:40pm6.1 mg/dLBelow low normal8.5-10.1Mean Corpuscular VolumeOctober 2024 2:40pmOctober 2024 2:40pm85.4 fL81.0-99.0Urine Occult BloodOctober 2024 12:10pmNEGATIVENEGATIVEChloride LevelOctober 2024 2:40pmOctober 2024 2:31wv207 mmol/R10-584Dwbc Platelet VolumeOctober 2024 2:40pmOctober 2024 2:40pm10.7 fL9.5-13.5Urine AppearanceOct2024 12:10pmCLEAR CLEARCarbon Dioxide LevelOctober 2024 2:40pmOctober 2024 2:40pm24.9 mmol/L21.0-32.0Platelet CountOctober 2024 2:40pmOctober 2024 2:40pm 181 10 3/lZ753-225Nkacp ColorOctober 2024 12:10pmYELLOWYELLOWCreatinine July 09, 2025 2:40pmOct2024 2:40pm3.20 mg/dLAbove high normal 0.55-1.02Red Blood CountOct2024 2:40pmOctober 2024 2:40pm3.14 10 6/uLBelow low normal4.20-5.40Urine Glucose (UA)July 11, 2025 12:10pm NEGATIVE mg/dLNEGATIVEEstimated GFR ()July 09, 2025 2:40pm July 09, 2025 2:96st06Rofce low normal>=60 mL/min/1.73m 2Red Cell Distribution WidthOct2024 2:40pmOct2024 2:40pm17.8 %Above high .0-15.0Urine Hyaline CastsOct2024 12:10pmRAREEstimated GFR (Non- AmericanOct2024 2:40pmOct2024 2:40pm14 Below low normal>=60 mL/min/1.73m 2Corrected White Blood CountOct2024 2:40pmOct2024 2:40pm4.3 10 3/uL4.0-11.0Urine KetonesOctober 2024 12:10pmNEGATIVE mg/dLNEGATIVEGlucose LevelOctober 2024 2:40pmOctober 2024 2:40pm99 mg/lF34-363Bmqpz Leukocyte EsteraseOctober 2024 12:10pmNEGATIVENEGATIVEPotassium LevelOctober 2024 2:40pmOctober 2024 2:40pm3.2 mmol/LBelow low normal3.5-5.1Urine MucusOctober 2024 12:10pmNONE SEENNONE SEENSodium LevelOctober 2024 2:40pmOctober 2024 2:23jb109 mmol/Z919-233Fqrxs NitriteOctober 2024 12:10pmNEGATIVENEGATIVE Phosphorus LevelOctober 2024 2:40pmOctober 2024 2:40pm4.2 mg/dL 2.6-4.7Urine pHOctober 2024 12:10pm5.55.0-9.0Urine ProteinOctober 2024 12:10pm>=300 mg/dLAbnormal (applies to non-numeric results)NEG/TRACEUrine RBCOctober 2024 12:42pc2-4 #/HPF0-2Urine Specific GravityOctober 2024 12:10pm1.0201.005-1.025Urine Squamous Epithelial CellsOctober 2024 12:10pmRARE #/LPFNONE/RAREUrine UrobilinogenOctober 2024 12:10pm0.2 EU/dL 0.2-1.0Urine WBCOctober 2024 12:25hb4-1 #/HPFAbnormal (applies to non- numeric results)NONE SEEN Vital Signs Vital Reading Result Reference Range Collection Date/Time Height 61 [in_i] July 15, 2025 4:71etFrvblw93.93 kgOctober 2024 4:07pmHeart Rate64 /azn50-923Wwqfeoi 28th, 2025 4:07pmRespiratory rate16 /rjt89-25Xyxqire 2024 4:07pmOxygen saturation by Pulse %95-100Oct2024 4:07pmBP Whfdeqme362 mm[Hg]100-140October 2024 4:15pmBP Dvcdwsydi55 mm[Hg] 60-100October 2024 4:15pmBMI (Body Mass Index)25.0 kg/a9Yngevlz 2024 4:07pm Advance Directives Advance Directive Response Recorded Date/ Time Advance Directives No May 2:17pm Insurance Providers Guarantor Marleni Dennis Address [address] [place] [id number] Info.Home Phone: Coverage Status Update:2025 Payer Group Member ID Coverage Type Subscriber Relationship to Subscriber Effective Date Expiration Date Gisselle KIM/DERRELL Id: [id number] L Mccarthy Id: [id number] [address] [id number] Home Phone: Email: [email or web address] [id number] L Mccarthy Id: [id number] [address] [id number] Home Phone: Email: [email or web address] [id number] L Mccarthy Id: [id number] [address] [id number] Home Phone: Email: [email or web address] [email or web address] Dennis Id: [id number] [address] [id number] Home Phone: Email: [email or web address] Id: [id number] L Mccarthy Id: [id number] [address] [id number] Home Phone: Email: [email or web address] Encounters Encounter Location(s) Arrival/Admit Date Discharge/Departure Date Discharge/Departure Disposition Provider(s) Non-patient / Non-visit -[facility] O ctober 2024 2:40pm Elsy Patino MDNon-patient / [facility]October 2024 12:10pmKARLO Silvaeparted Physician/Provider Office Visit- [facility] [place] 2024 4:07pmOctober 2024 4:52pm Discharged to home care or self care (routine discharge)Elsy Patino MD Recent Diagnosis Onset Date Admit Date Anemia Unknown July 15 4:07pm Chronic kidney disease, stage IV (severe) Unknow n July 15, 2025 4:07pm Folate deficiency Unknown July 15, 2025 4:07pm Hyperparathyroidism Unknown June 4:07pm Hypocalcemia Unknown July 15 4:07pm Hypokalemia Unknown July 15 4:07pm Hypomagnesemia Unknown July 15 4:07pm Iron deficiency Unknown July 15 4:07pm Proteinuria Unknown July 15 4:07pm Hypertensive nephropathy Unknown July 15, 2025 4:07pm Assessments Diagnosis Onset Date Resolution Status Admit Date Anemia acuteJuly 15, 2025 4:07pmChronic kidney disease, stage IV (severe)acute July 15, 2025 4:07pmFolate deficiencyacuteJuly 15, 2025 4:07pm HyperparathyroidismacuteJuly 15, 2025 4:07pmHypocalcemiaacuteOct2024 4:07pmHypokalemiaacuteJuly 15, 2025 4:07pmHypomagnesemiaacuteJuly 15, 2025 4:07pmIron deficiencyacuteSouth[facility]20[facility] 4:07pmProteinuriaacute July 15, 2025 4:07pmHypertensive nephropathyresolvedOct2024 4:07pm Plan of Treatment Future Tests Future scheduled test information is unavailable Pending Tests Test Name Ordered Date Scheduled Date Immunofixation, (HALLIE), Urine July 15, 2025 4:41pm 2 Months Renal Function Panel July 15, 2025 4:39pm 1 Weeks Renal Function Panel July 15, 2025 4:41pm 2 Months Future Visits Future appointment information is unavailable Future Procedures Procedure Name Ordered Date Scheduled Date Hemogram CBC Without Diff July 15, 2025 4:4 1pm 2 Months Iron and TIBC Profile July 15, 2025 4:41pm 2 Months Ferritin July 15, 2025 4:41pm 2 Bao hs Fr Pickett/[facility] Urine July 15, 2025 4:4 1pm 2 Months Magnesium July 15, 2025 4:41pm 2 Bao hs MicroAlb Creat Ratio,U July 15, 2025 4:41pm 2 Months Protein Creat Ratio Ur Random July 15, 2025 4:41pm 2 Months Parathyroid Hormone Intact July 15, 2025 4: 41pm 2 Months Protein Electro, 24Hr Urine July 15, 2025 4 :41pm 2 Months Uric Acid July 15, 2025 4:41pm 2 Bao hs Vit. B12/Folate Profile July 15, 2025 4:41p m 2 Months Vitamin D 25 Hydroxy Total July 15, 2025 4: 41pm 2 Months Future Medications Future medication information is unavailable Patient Instructions Patient instructions are unavailable
--- OUTSIDE RECORDS SUMMARY | 2025-07-22 17:59 | XMS_ITS | Clinical Summary ---
Author Organization [facility] Address [address] [place] [address] Care Team Providers Care Supervisor Multifocal Lens Name Role Phone Jack Viera Primary Care Provider [phone] Social History Tobacco UseTypesPacks/DayYears UsedDateSmoking Tobacco: Never Assessed CommentsUnknownSex and Gender InformationValueDate RecordedSex Assigned at Not on fileLegal FdlFfrrqx90/02/2012 9:29 AM ESTGender IdentityNot on fileSexual OrientationNot on file Plan of Treatment Not on file Care Teams Team MemberRelationshipSpecialtyStart DateEnd Date Jack Viera [facility] [place] [address] PCP - General12/28/00
--- OUTSIDE RECORDS SUMMARY | 2025-07-22 17:59 | XMS_ITS | Encounter Summary ---
Author Organization [facility] Address [address] [place] [address] Care Team Providers Care Tavern Keeper Name Role Phone Jack Vogt MD Primary Care Provider [phone] Chantelle Recio BAKERY DEMONSTRATOR Unavailable [phone] Valerie Go RN Unavailable [phone] Encounter Details DateTypeDepartmentCare Team (Latest Contact Info)Gtysrhppkaw14/24/2025Clinisync Result Encounter [facility] External Department Unsolicited Provider, Generic External Data Social History Tobacco UseTypesPacks/DayYears UsedDateSmoking Tobacco: FormerCigarettes Smokeless Tobacco: NeverAlcohol UseStandard Drinks/WeekCommentsDefer0 (1 standard drink = 0.6 oz pure alcohol)caffeine yes type:coffeePHQ-2AnswerDate RecordedPatient Health Questionnaire-2 Pbrgf190CommentsUnknown Sex and Gender InformationValueDate RecordedSex Assigned at BirthNot on file Legal NuwZdsotm21/15/2023 6:57 PM EDTGender IdentityNot on fileSexual OrientationNot on filedocumented as of this encounter Plan of Treatment Not on file documented as of this encounter Goals GoalPatient Goal TypeAssociated ProblemsRecent ProgressPatient-Stated?Author Help patient manage antidepressant medication Care PlanPatient on antidepressant monitoring Renetta Enamorado NP documented as of this encounter Procedures Procedure NamePriorityDate/TimeAssociated DiagnosisCommentsTBH URINE T PROTEIN CREAT EADRSKgzrhge47/24/2025 12:10 PM EDT [facility] URINALYSIS, WITH LCYRABUGHBIQvtvhsa06/ 12:10 PM EDT documented in this encounter Results * (ABNORMAL) [facility] URINALYSIS, WITH MICROSCOPIC (07/11/2025 12:10 PM EDT) ComponentValueRef RangeTest MethodAnalysis TimePerformed AtPathologist SignatureCOLOR URINEYELLOWYELLOWTBHCLARITY URINECLEARCLEARTBHSPECIFIC GRAVITY URINE1.0201.005 - 1.025TBHPH URINE5.55.0 - 9.0TBHPROTEIN URINE>=300(A) NEG/TRACE mg/dLTBHGLUCOSE URINE UANEGATIVENEGATIVE mg/dLTBHBILIRUBIN URINE NEGATIVENEGATIVETBHKETONES URINENEGATIVENEGATIVE mg/dLTBHBLOOD URINENEGATIVE NEGATIVETBHNITRITE URINENEGATIVENEGATIVETBHUROBILINOGEN URINE0.20.2 - 1.0 EU/dLTBHLEUKOCYTE ESTERASE URINENEGATIVENEGATIVETBHTBH WBC0-2(A)NONE SEEN #/HPFTBHTBH RBC0-20 - 2 #/HPFTBHBACTERIA URINETRACE(A)NONE SEEN #/HPFTBHMUCUS URINENONE SEENNONE SEENTBHSQUAMOUS EPITHELIAL CELL URINERARENONE/RARE #/LPFTBH CRYSTALS SEEN?None SeenNone Seen #/HPFTBHCAST SEEN?SEEN(A)NONE SEEN #/LPFTBH HYALINE CASTS URINERARETBHSpecimen (Source)Anatomical Location / Laterality Collection Method / VolumeCollection TimeReceived Time07/11/2025 12:10 PM EDT 07/11/2025 1:28 PM EDT Narrative [facility] - 07/11/2025 2:35 PM EDT Authorizing ProviderResult TypeResult StatusGeneric External Data Provider CLINISYNCFinal ResultPerforming OrganizationAddressCity/State/ZIP CodePhone Number CLINISYNC [facility] * (ABNORMAL) [facility] URINE T PROTEIN CREAT RATIO (07/11/2025 12:10 PM EDT)Component ValueRef RangeTest MethodAnalysis TimePerformed AtPathologist SignatureTOTAL PROTEIN URINE KVASDW956.1(H)<=11.9 mg/dLTBHCREATININE URINE IBDXZR32.3320.00 - 300.00 mg/dLTBHPROTEIN CREATININE RATIO URINE2.49TBHSpecimen (Source) Anatomical Location / LateralityCollection Method / VolumeCollection Time Received Time07/11/2025 12:10 PM EDT1 1:28 PM EDT Narrative [facility] - 07/11/2025 2:01 PM EDT Authorizing ProviderResult TypeResult StatusGeneric External Data Provider CLINISYNCFinal ResultPerforming OrganizationAddressCity/State/ZIP CodePhone Number CLINISYNC TB documented in this encounter Visit Diagnoses Not on filedocumented in this encounter Additional Health Concerns Active ProblemsNoted DateDiagnosed DatePatient on antidepressant monitoring plan 02/25/2025ssessmentNoted TimePHQ-9 Depression Total Score: 15002/25/2025 11:31 AM EDTdocumented as of this encounter Care Teams Team MemberRelationshipSpecialtyStart DateEnd Date Jack Vogt MD [address] [facility] [address] [place] [address] PCP - GeneralInternal Medicine01/24/23 Chantelle Recio, HIEU [address] [place] [address] Social WorkerFamily Medicine06/10/25 Valerie Go, DEBORA [address] [facility] [address] [place] [address] Registered NurseFamily Mzjjaffo96/13/25documented as of this encounter
--- OUTSIDE RECORDS SUMMARY | 2025-07-22 17:59 | XMS_ITS | Encounter Summary ---
Author Organization [facility] Address [address] [place] [address] Care Team Providers Care Supervisor Electronics Assembly Name Role Phone Jack Vogt MD Primary Care Provider Chantelle Recio CONSTRUCTION TECHNOLOGY INSTRUCTOR Unavailable [phone] Valerie Go RN Unavailable [phone] Encounter Details DateTypeDepartmentCare Team (Latest Contact Info)Ujomrfvlesy18/22/2025Clinisync Result Encounter [facility] External Department Unsolicited Provider, Generic External Data Social History Tobacco UseTypesPacks/DayYears UsedDateSmoking Tobacco: FormerCigarettes Smokeless Tobacco: NeverAlcohol UseStandard Drinks/WeekCommentsDefer0 (1 standard drink = 0.6 oz pure alcohol)caffeine yes type:coffeePHQ-2AnswerDate RecordedPatient Health Questionnaire-2 [id number] Sex and Gender InformationValueDate RecordedSex Assigned at BirthNot on file Legal OtoWecxac89/15/2023 6:57 PM EDTGender IdentityNot on fileSexual OrientationNot on filedocumented as of this encounter Plan of Treatment Not on file documented as of this encounter Goals GoalPatient Goal TypeAssociated ProblemsRecent ProgressPatient-Stated?Author Help patient manage antidepressant medication Care PlanPatient on antidepressant monitoring Renetta Enamorado NP documented as of this encounter Procedures Procedure NamePriorityDate/TimeAssociated DiagnosisCommentsVITAMIN S76Lvgcanl 07/09/2025 2:40 PM EDT TBH VITAMIN D 25 XPMwjqsps03/22/2025 2:40 PM EDT [facility] OYZIUcngwqn18/22/2025 2:40 PM EDT [facility] PTH, SKAOLQBWORPCRRGwhueqe16/22/2025 2:40 PM EDT [facility] CBC WITH PLATELET NO WJOMEYRUFIBFBedobge43/22/2025 2:40 PM EDT [facility] MWLHHHBJGumnlmd79/22/2025 2:40 PM EDT ALL URIC EGXYJlqgurz46/22/2025 2:40 PM EDT ALL RENAL FUNCTION SKATPMqrlaah22/22/2025 2:40 PM EDT ALL PVNEFTCQWMcgfsff55/22/2025 2:40 PM EDT ALL FOLIC ZKGXQiwvlnl97/22/2025 2:40 PM EDT documented in this encounter Results * VITAMIN B12 (07/09/2025 2:40 PM EDT)ComponentValueRef RangeTest MethodAnalysis TimePerformed AtPathologist SignatureVITAMIN [id number] - 1245 pg/mLTBHComment: Performed at: ?? - [facility] [address] ??[id number] Database Administrator: Raul Medel PhD, Phone: ??[phone] Specimen (Source)Anatomical Location / LateralityCollection Method / Volume Collection TimeReceived Time07/09/2025 2:40 PM EDT1 3:28 PM EDT Narrative CLINISYNC - 07/11/2025 4:07 AM EDT Authorizing ProviderResult TypeResult StatusGeneric External Data ProviderLAB BLOOD ORDERABLESFinal ResultPerforming OrganizationAddressCity/State/ZIP Code Phone Number CLINEMILY TBH * (ABNORMAL) [facility] PTH, INTRAOPERATIVE (07/09/2025 2:40 PM EDT)ComponentValueRef RangeTest MethodAnalysis TimePerformed AtPathologist SignaturePTH, ZUNSGN28(A) 15 - 65 pg/mLTBHComment: Performed at: ?? - [facility] [address] ??[id number] Database Administrator: Raul Medel PhD, Phone: ??[phone] Specimen (Source)Anatomical Location / LateralityCollection Method / Volume Collection TimeReceived Time07/09/2025 2:40 PM EDT1 3:28 PM EDT Narrative CLINISYNC - 07/10/2025 12:08 PM EDT Authorizing ProviderResult TypeResult StatusGeneric External Data Provider CLINISYNCFinal ResultPerforming OrganizationAddLECOM Health - [facility] Hospitalty/State/ZIP CodePhone Number CLINISYNC TB * (ABNORMAL) ALL MAGNESIUM (07/09/2025 2:40 PM EDT)ComponentValueRef RangeTest MethodAnalysis TimePerformed AtPathologist SignatureMAGNESIUM0.6(LL)1.8 - 2.4 mg/dLTBHComment:RESULTS CALLED TOSpecimen (Source)Anatomical Location / LateralityCollection Method / VolumeCollection TimeReceived Time07/09/2025 2:40 PM EDT1 3:28 PM EDT Narrative CLINISYNC - 07/09/2025 4:41 PM EDT Authorizing ProviderResult TypeResult StatusGeneric External Data Provider CLINISYNCFinal ResultPerforming OrganizationAddLECOM [facility] Hospitalty/State/ZIP CodePhone Number CLINISYNC TB * (ABNORMAL) ALL URIC ACID (07/09/2025 2:40 PM EDT)ComponentValueRef RangeTest MethodAnalysis TimePerformed AtPathologist SignatureURIC ACID8.1(H)2.6 - 6.0 mg/dLTBHSpecimen (Source)Anatomical Location / LateralityCollection Method / VolumeCollection TimeReceived Time07/09/2025 2:40 PM EDT1 3:28 PM EDT Narrative CLINISYNC - 07/09/2025 4:41 PM EDT Authorizing ProviderResult TypeResult StatusGeneric External Data Provider CLINISYNCFinal ResultPerforming OrganizationAddLECOM [facility] Hospitalty/State/ZIP CodePhone Number CLINISYNC TBH * (ABNORMAL) ALL RENAL FUNCTION PANEL (07/09/2025 2:40 PM EDT)ComponentValueRef RangeTest MethodAnalysis TimePerformed AtPathologist LjgsjepokZZISGL903242 - 145 mmol/LTBHPOTASSIUM3.2(L)3.5 - 5.1 mmol/CSSRAVEINQCT69994 - 107 mmol/LTBH CARBON XJYMOTK75.921.0 - 32.0 mmol/LTBHANION GAP16.8QNAGCVSVMR9323 - 106 mg/dL TBHBLOOD UREA EXGGPSKU40.0(H)7.0 - 18.0 mg/dLTBHCREATININE3.20(H)0.55 - 1.02 mg/dLTBHTBH EGFR-AF CPREJGVY76(L)>=60 mL/min/1.73m 2TBHTBH EGFR-NON AF KHBCPPLD93(L)>=60 mL/min/1.73m 2TBHBUN CREATININE RATIO20.5RNXNSGFFEL5.1(L)8.5 - 10.1 mg/dLTBHPHOSPHORUS4.22.6 - 4.7 mg/dLTBHALBUMIN LEVEL3.1(L)3.4 - 5.0 g/dLTBHSpecimen (Source)Anatomical Location / LateralityCollection Method / VolumeCollection TimeReceived Time07/09/2025 2:40 PM EDT1 3:28 PM EDT Narrative CLINISYNC - 07/09/2025 4:41 PM EDT Authorizing ProviderResult TypeResult StatusGeneric External Data Provider CLINISYNCFinal ResultPerforming OrganizationAddressCity/State/ZIP CodePhone Number CLINSUTTER [facility]ENTERNC [facility] * (ABNORMAL) ALL FOLIC ACID (07/09/2025 2:40 PM EDT)ComponentValueRef RangeTest MethodAnalysis TimePerformed AtPathologist SignatureFOLATE4.80(L)8.60 - 58.90 ng/mLTBHSpecimen (Source)Anatomical Location / LateralityCollection Method / VolumeCollection TimeReceived Time07/09/2025 2:40 PM EDT1 3:28 PM EDT Narrative CLINISYNC - 07/09/2025 4:27 PM EDT [facility] Authorizing ProviderResult [...] Time07/09/2025 2:40 PM EDT1 3:28 PM EDT [facility] - 07/09/2025 4:27 PM EDT [facility] DROP OFF Authorizing ProviderResult TypeResult StatusGeneric External Data Provider [facility]YNCE[facility] ResultPerforming OrganizationAddressty/State/ZIP CodePhone Number KATHY [facility] * [facility] FERRITIN (07/09/2025 2:40 PM EDT)ComponentValueRef RangeTest Method Analysis TimePerformed AtPathologist CtzlbswzvYPGUHFDF69.08.0 - 252.0 ng/mLTBH Specimen (Source)Anatomical Location / LateralityCollection Method / Volume Collection TimeReceived Time07/09/2025 2:40 PM EDT1 3:28 PM EDT [facility] - 07/09/2025 4:27 PM EDT [facility] DROP OFF Authorizing ProviderResult TypeResult StatusGeneric External Data Provider CLINISYNCMassena Memorial Hospitalal ResultPerforming OrganizationAddLECOM [facility] Hospitalty/State/ZIP CodePhone Number KATHY [facility] * (ABNORMAL) [facility] (07/09/2025 2:40 PM EDT)ComponentValueRef Range Test MethodAnalysis TimePerformed AtPathologist SignatureTBH IRON40.0(L)50.0 - 170.0 ug/dLTBHTBH TOTAL IRON BINDING ILKWAMJG249.0250.0 - 450.0 ug/dLTBHTBH PERCENT IRON HBYDTMLTTK39.3%TBHSpecimen (Source)Anatomical Location / LateralityCollection Method / VolumeCollection TimeReceived Time07/09/2025 2:40 PM EDT1 3:28 PM EDT Narrative CLINISYNC - 07/09/2025 4:06 PM EDT Authorizing ProviderResult TypeResult StatusGeneric External Data Provider CLINISYNCFinal ResultPerforming OrganizationAddressCity/State/ZIP CodePhone Number KATHY [facility] * (ABNORMAL) [facility] CBC WITH PLATELET NO DIFFERENTIAL (07/09/2025 2:40 PM EDT) ComponentValueRef RangeTest MethodAnalysis TimePerformed AtPathologist SignatureTBH WBC4.34.0 - 11.0 10 3/uLTBHTBH RBC3.14(L)4.20 - 5.40 10 6/uLTBH TBH HGB9.1(L)12.0 - 16.0 g/dLTBHTBH HCT26.8(L)36.0 - 48.0 %TBHTBH MCV85.481.0 - 99.0 fLTBHTBH MCH29.026.7 - 34.0 pgTBHTBH MCHC34.029.9 - 35.2 g/dLTBHTBH RDW 17.8(H)11.0 - 15.0 %TBHTBH TDT725320 - 450 10 3/uLTBHTBH MPV10.79.5 - 13.5 [...] MemberRelationshipSpecialtyStart DateEnd Date Jack Vogt MD [address] [place] [address] PCP - GeneralInternal Medicine01/24/23 Chantelle Recio LSW [address] [place], [place] [id number] Social WorkerFamily Medicine06/10/25 Valerie Go, RN [address] [facility] [address] [place] [address] Registered NurseFamily Wztwvvpp74/13/25documented as of this encounter
--- OUTSIDE RECORDS SUMMARY | 2025-07-22 17:59 | XMS_ITS | Encounter Summary ---
Author Organization [facility] Address [address] [place] [address] Care Team Providers Care Financial Services Officer Name Role Phone Jack Vogt MD Primary Care Provider Chantelle Recio RN REGISTRY Unavailable [phone] Valerie Go RN Unavailable [phone] Encounter Details DateTypeDepartmentCare Team (Latest Contact Info)Trxknykcikw02/31/2024Clinisync Result Encounter [facility] External Department Unsolicited Provider, Generic External Data Social History Tobacco UseTypesPacks/DayYears UsedDateSmoking Tobacco: NeverSmokeless Tobacco: NeverAlcohol UseStandard Drinks/WeekCommentsNot Asked0 (1 standard drink = 0.6 oz pure alcohol)caffeine yes type:coffeePHQ-2AnswerDate RecordedPatient Health Questionnaire-2 Ejgki691CommentsUnknownSex and Gender InformationValueDate RecordedSex Assigned at BirthNot on fileLegal SexFemale 11/30/2022 6:57 PM EDTGender IdentityNot on fileSexual OrientationNot on file documented as of this encounter Functional Status * Over the past 2 weeks, how often have you been bothered by any of the following problems?QuestionAnswerDate of AssessmentAuthorLittle interest or pleasure in doing thingsMore than half the days02/25/2025 11:31 AM Tyrel MOHAMUDeling down, depressed, or hopelessMore than half the days02/25/2025 11:31 AM Ava MOHAMUDnt Health Questionnaire-2 Rvzrg776 11:31 AM CARO MOHAMUD * QuestionAnswerDate of AssessmentAuthorTrouble falling or staying asleep, or sleeping too muchMore than half the days02/25/2025 11:31 AM CARO MOHAMUD Feeling tired or having little energyMore than half the days02/25/2025 11:31 AM KANU MOHAMUDAPoor appetite or overeatingMore than half the days02/25/2025 11:31 AM KANU MOHAMUDAFeeling bad about yourself - or that you are a failure or have let yourself or your family downSeveral days02/25/2025 11:31 AM Sheila BERNAL concentrating on things, such as reading the newspaper or watching televisionNearly every day02/25/2025 11:31 AM CAED, KANUAMoving or speaking so slowly that other people could have noticed? Or the opposite - being so fidgety or restless that you have been moving around a lot more than usual.Several days02/25/2025 11:31 AM KANU MOHAMUDAThoughts that you would be better off or hurting yourself in some wayNot at all02/25/2025 11:31 AM KANU MOHAMUDAPatie Health Questionnaire-9 Ldcsh6292/10/2025 11:31 AM CARO MOHAMUD * If you checked off any problems on this questionnaire so far,QuestionAnswer Date of AssessmentAuthorHow difficult have these problems made it for you to do your work, take care of things at home, or get along with other people? Somewhat ansthvfqz20/10/2025 11:31 AM CARO MOHAMUD documented as of this encounter Plan of Treatment Not on file documented as of this encounter Procedures Procedure NamePriorityDate/TimeAssociated DiagnosisCommentsUS LEG LEFT VENOUS + OCERLFK3910/18/2023 4:32 PM EST documented in this encounter Results * LEG LEFT VENOUS + DOPPLER (10/18/2023 4:32 PM EST)Anatomical Region LateralityModalityRadiographic ImagingSpecimen (Source)Anatomical Location / LateralityCollection Method / VolumeCollection TimeReceived Time10/18/2023 4:32 PM EST Narrative 10/18/2023 4:35 PM EST [facility] ?[address] ? [place] [address] ? Ultrasound Report ? Signed ? Patient: MARLENI NGUYEN L ?MR#: [id number] ?? : 1950 ?Acct:[id number] ?? Age/Sex: 72 / F ?ADM Date: 10/18/23 ?? Loc: US ? Attending Dr: SACHIN MATTHEWS ? Ordering Physician: SACHIN MATTHEWS ?? Date of Service: 10/18/23 ?? Procedure(s): US venous doppler LE BI ?? Accession Number(s): [id number] ? cc: JACK VOGT ; SACHIN MATTHEWS ? [facility] ? [address] ? [place] [address] ? Patient Name: ?? MARLENI NGUYEN ? MRN: [facility]:[id number] ? date: 1950 ?Sex: F ?? Assigned Patient Location: US ?? Current Patient Location: US ?? Accession/Order Number: [id number] ?? Exam Date: 10/18/2023 ??15:08 ?Report Date: 10/18/2023 ??16:32 ? At the request of: ?? SACHIN ??BYRON ? Procedure: ??US venous doppler LE BI ? EXAM: US venous doppler LE BI ? HISTORY: R60.0 localized edema ? COMPARISON: None. ? TECHNIQUE: Grayscale, color and Doppler ? FINDINGS: ? Right leg: ? Thrombus: Echogenic thrombus identified in the mid small saphenous vein. No ?? echogenic thrombus in the deep system. ?? Flow: Decreased and absent flow corresponding to thrombus ?? Compressibility: Normal compressibility of the deep system ?? Augmentation: Normal compressibility of the deep system ? Left leg: ? Thrombus: None ?? Flow: Normal ?? Compressibility: Normal ?? Augmentation: Normal ? Other: Subcutaneous edema of the calf ? US/US venous doppler LE BI ?? IMPRESSION: ? Occlusive and nonocclusive superficial vein thrombus in the small saphenous ?? vein ? No deep vein thrombus identified in the right or left leg ? Moderate left calf soft tissue swelling ? Electronically authenticated by: HENRY ??ELENA ?? Date: 10/18/2023 ??16:32 ? Dictated By: ?Henry Parker M.D. ? Signed By: ?10/18/23 1635 ? DD/ 1632 ? TD/TT: ? Garage Door Service Technician: Procedure Note Radiology, Radiologist, - 10/18/2023 [place] [address] Ultrasound Report Signed Patient: MARLENI NGUYEN LMR#: [id number] : 1950Acct:[id number] Age/Sex: 72 / FADM Date: 10/18/23 Loc: US Attending Dr: SACHIN MATTHEWS Ordering Physician: SACHIN MATTHEWS Date of Service: 10/18/23 Procedure(s): US venous doppler LE BI Accession Number(s): [id number] cc: JACK VOGT ; SACHIN MATTHEWS [place] [address] Patient Name: MARLENI NGUYEN MRN: [id number] date: 1950 Sex: F Assigned Patient Location: US Current Patient Location: [place] Accession/Order Number: [id number] Exam Date: 10/18/2023 15:08 Report Date: 10/18/2023 [...] Henry Parker M.D. Signed By:10/18/23 1635 DD/ 163 TD/TT: Garage Door Service Technician: Authorizing ProviderResult TypeResult StatusGeneric External Data ProviderIMG XR PROCEDURESFinal Result documented in this encounter Visit Diagnoses Not on filedocumented in this encounter Care Teams Team MemberRelationshipSpecialtyStart DateEnd Date Jack Vogt MD [address] [facility] [address] [place] [address] PCP - GeneralInternal Medicine01/24/23 Chantelle Recio, HIEU [address] [place] [address] Social WorkerFamily Medicine06/10/25 Valerie Go, RN [address] [facility] [address] [place] [address] Registered NurseFamily Shlnnqtb25/13/25documented as of this encounter
--- OUTSIDE RECORDS SUMMARY | 2025-07-22 17:59 | XMS_ITS | Encounter Summary ---
Author Organization [facility] Address [address] [facility] [place] [address] Care Team Providers Care Lead Scientist Name Role Phone Jack Vogt MD Primary Care Provider [phone] Chantelle Recio Unavailable [phone] Valerie Go RN Unavailable [phone] Encounter Details DateTypeDepartmentCare Team (Latest Contact Info)Jtqrnzfxnfa27/23/2025Patient Outreach [facility] [address] [place] [phone] Chantelle Recio LSW [address] [place] [address] Social History Tobacco UseTypesPacks/DayYears UsedDateSmoking Tobacco: FormerCigarettes Smokeless Tobacco: NeverAlcohol UseStandard Drinks/WeekCommentsDefer0 (1 standard drink = 0.6 oz pure alcohol)caffeine yes type:coffeePHQ-2AnswerDate RecordedPatient Health Questionnaire-2 Hjvjt045CommentsUnknown Sex and Gender InformationValueDate RecordedSex Assigned at BirthNot on file Legal NvkMalwij94/15/2023 6:57 PM EDTGender IdentityNot on fileSexual OrientationNot on filedocumented as of this encounter Progress Notes * HIEU Reese - 07/10/2025 12:31 PM EDT Images from the original note were not included. Flowsheet Row Patient Out[facility]10[facility] Hospital or [facility] Facility Discharge? ED Patient has been contacted within 2 days of being seen in the ED Yes Diagnosis hypomagnesemia, hypocalcemia, CKD Discharge Date 07/09/25 Discharged To: Home Setting Discharge Hospital [facility] Engagement Call Start Time 1359 Admission Date 07/09/25 Medications Discharge medications reviewed and reconciled from hospital? No [Unable to reconcile medications] Is the patient having any side effects they believe may be caused by any medication additions or changes? No Does the patient have all medications ordered at discharge? Yes Prescription Comments Magnesium-oxide 400mg once daily, also taking OTC calcium chewables Follow Up Tasks Medication reconciliation issues Appointments Does the patient have a primary care provider? Yes [Jack Vogt MD] Nursing Interventions Advised patient to make appointment [requests home visit with Malia Gonzalez NP] Does the patient have any upcoming specialty appointments? Yes [[facility] Nephrology Dr. Patino 07/15 at 4PM] Nursing Interventions Advised patient to keep appointment Follow Up Tasks Appointments [will request home visit with Malia Gonzalez NP] Self Management Does patient have home health? yes What is the home health agency? [facility] Patient Teaching Does the patient have access to their discharge instructions? Yes Nursing Interventions Reviewed instructions with patient What is the patient's perception of their health status since discharge? Improving [feels more energetic and appetite has increased] Is the patient/caregiver able to teach back the hierarchy of who to call/visit for symptoms/problems? PCP, Specialist, Home Health nurse, Urgent Care, ED, 911 Yes Wrap Up Wrap Up Additional Comments Sent to ED by nephrology due to abnormal labs, magnesium 0.6. EKG checked, sinus rhythm at 60bpm with no acute changes. Labs repeated and magnesium was again 0.6, potassium 3.2, calcium 6.3, kidney function unchanged. Pt treated in ED with 1000mg calcium gluconate and 2mg IV magnesium. Pt discharged with rx mag-ox 400mg daily and is also advised to take OTC calcium that she has at home. Pt reports feeling better since ED visit. She will follow up with Dr. Patino 07/15 and she received call that he is ordering folic acid, potassium, and iron for her to take. Call End Time 1405 Spoke to pt, ED TCM complete. She requests home visit by Malia Gonzalez NP for ED follow up. Pt reports taking mag-ox daily and chewable calcium. She also received call from nephrology office today that she is to start folic acid, potassium, and iron. * 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 NP - 07/10/2025 12:31 PM EDT Call placed to pt, no answer, VM received, msg left with call back info * HIEU Reese - 07/10/2025 12:31 PM EDT Noted. documented in this encounter Plan of Treatment Not on file documented as of this encounter Goals GoalPatient Goal TypeAssociated ProblemsRecent ProgressPatient-Stated?Author Help patient manage antidepressant medication Care PlanPatient on antidepressant monitoring planRenetta Field NP documented as of this encounter Visit Diagnoses Diagnosis Stage 3b chronic kidney disease (CMS-HCC)- Primary Fibromyalgia Unspecified myalgia and myositis documented in this encounter Additional Health Concerns Active ProblemsNoted DateDiagnosed DatePatient on antidepressant monitoring plan 02/25/2025ssessmentNoted TimePHQ-9 Depression Total Score: 1506 11:31 AM EDTdocumented as of this encounter Care Teams Team MemberRelationshipSpecialtyStart DateEnd Date Jack Vogt MD [address] [facility] [address] [place] [address] PCP - GeneralInternal Medicine01/24/23 Chantelle Recio LSW [address] [place] [address] Social WorkerFamily Medicine06/10/25 Valerie Go, DEBORA [address] [facility] [address] [place] [address] Registered NurseFamily Veevjgmy95/13/25documented as of this encounter
--- OUTSIDE RECORDS SUMMARY | 2025-07-22 17:59 | XMS_ITS ---
Author Organization [facility] Address [address] [place] [address] Care Team Providers Care Protocol Officer Name Role Phone Jack Vogt MD Primary Care Provider [phone] Chantelle Recio Unavailable Valerie Go RN Unavailable [phone] Emergency Department Transitional Care Management (TCM) Status:Closed (Closed) Start date:07/09/2025 Enrollment date:07/11/2025 Enrollment reason:Identified using hospital discharge data End date:07/11/2025 Close reason:Actively enrolled in CCM Overview Discharged from [facility] ER on 07/09. Please contact within 2 days of discharge for ERTOC and schedule a follow-up appointment if needed. Continued Care and Services Coordination
--- OUTSIDE RECORDS SUMMARY | 2025-07-22 17:59 | XMS_ITS | Clinical Summary ---
Author Organization [facility] Address [address] [place] [address] Care Team Providers Care Rubber And Plastics Worker Name Role Phone Jack Vogt MD Primary Care Provider [phone] Allergies Active AllergyReactionsCriticalityNoted SojdAcxfsdloBfylpk38/17/2022NickelMedium 06/04/2018 Other reaction(s): Dermatitis skin irritation and itching with jewelry worn Pneumococcal 23-Dianne Ps Unzgzeg0605/06/2021 Other reaction(s): Swelling, Redness Red Dye05/04/2022hellfish MhyzvzfIxfesrqgmskDivg93/17/4449Xuyeyub-Ipf-Cef Reductase Vpdwyxubib10/19/2021 Other reaction(s): Myalgias, Myalgias (Muscle Pain) Zobtgifdkrj74/19/2021 Other reaction(s): Vomiting Medications MedicationSigDispense QuantityRefillsLast FilledStart [...] the morning for 120 doses. 30 tablet tive NIFEdipine XL (Procardia XL) 90 mg 24 hr tablet Indications:Primary hypertensionTake 1 tablet (90 mg) by mouth two times daily for 87 doses. Do not crush, chew, or split. 60 tablet tive carvedilol (Coreg) 25 mg tablet Take 25 mg by mouth with breakfast and with evening meal.Active nitroglycerin (Nitrostat) 0.[address] 0.4 mg under the tongue every 5 (five) minutes if needed for chest pain. 03/20/2024ctive isosorbide mononitrate ER (Imdur) 30 mg 24 hr tablet Indications:Coronary artery disease involving [place] coronary artery of [place] heart without angina pectorisTake 1 tablet (30 mg) by mouth once daily as directed. Do not crush or chew. 90 tablet 6Active sennosides (Senokot) 8.6 mg tablet Indications:Constipation, unspecified constipation typeTake 1 tablet (8.6 mg) by mouth at bedtime for 120 doses. 30 tablet Expired Active Problems ProblemNoted DateDiagnosed DateHistory of DVT [...] of the abdomen as an outpatient Hypertensive vtbgwgqyd53/26/2025 Assessment & Plan (03/19/2025 8:02 AM EDT): [...] low-fat diet Other abnormalities of gait and evubnvcf36/26/2025 Assessment & Plan (03/19/2025 8:02 AM EDT): [...] to see patient fall precautions Severe protein-calorie yegmjkgroxvo73/26/2025 Assessment & Plan (03/19/2025 8:02 AM EDT): [...] Acute kidney injury superimposed on chronic kidney wyjiygu1304/24/2024 Assessment & Plan (03/19/2025 8:02 AM EDT): [...] in order to avoid such labile BP Knhzjo1904/24/2024Left knee pain04/24/2024Lower GI bleed04/24/2024Lymphedema 04/24/2024oor dental hmthkno2004/24/2024Urge gmzuqoyhejmx07/07/2024Weakness aensgaitllw33/07/2024Localized edema10/04/2023Stage 3b chronic kidney disease 10/04/2023Stage 4 chronic kidney wdkdqqe0807/21/2023 Assessment & Plan (03/19/2025 4:17 PM EDT): [...] taking as well as ARB Allergy to vbumuzk32Irritable bowel agbjmxra05/18/2023 07/21/20230411Kzljtro57ostsurgical percutaneous transluminal coronary angioplasty zumsom59rimary osteoarthritis of both kneesulmonary embolism with tafonmqdoh16 Statin ctcrhtdiquf92Type 2 diabetes mellitus with other diabetic kidney bhkaichnjtmm70 Assessment & Plan (03/19/2025 8:02 AM EDT): [...] EDT): ) Blood sugar check diet Tobacco sxuyabkizp35 Assessment & Plan (03/19/2025 8:02 AM EDT): [...] disease which can worsen with tobacco use Lobzpdjdpuuilg53/19/5760Hjutizdyjfyo46/19/2023Cardiovascular stress test anyyjisw17/17/2022Carotid artery zhmnehoa67/17/2022Chest pain2Coronary artery disease without angina lpetpkuf09/17/2022 Overview (01/04/2023): S/p CABG and stenting - [...] exercise as tolerated and continue all medications. Orwxukteovvrn02/17/2022oronary atherosclerosis of autologous vein bypass graft 05/04/2022 Assessment & Plan (01/04/2023 3:34 PM EDT): stable Coronary stent yiozsl8505/04/2022ulmonary lvadlli6505/04/2022Hyperlipidemia 05/04/2022 Assessment & Plan (01/04/2023 3:36 PM EDT): Lipid fairly stable with tricor and zetia Pt intolerant of statin, and PCSK9 inhibitor was not affordable Uncontrolled iptizxrjsxuz74/17/2022 Assessment & Plan (01/04/2023 3:35 PM EDT): Hypertension is well controlled 138/74 continue all medications Uafnmxhfvajemp74/17/2022PVD (peripheral vascular disease)05/04/2022History of pulmonary bcszuyhd51/nemia due to chronic blood loss05/03/2021 Sinus ztxfmzbbeb70/16/2021History of thromboembolism of vein03/31/2021Thyroid fmzocs4506/17/20205563Kmurmzwop15/13/2020History of coronary artery bypass surgery 3Diabetic renal vinmsrb1710/24/20197162Czzlppgopnj36/06/2020Age related nmnokqylidgi60/04/2020Decreased estrogen level10/09/2019Allergy to statin zontvmcgmb63/20/2020Dissection of abdominal aorta05/29/2019Degenerative lumbar spinal rqxetvah56/12/2019Generalized abdominal pain04/29/2019Insomnia 04/29/2019Nausea and rgsokeur16/12/7130Deqniin34/12/2019Peripheral venous zourqgrklcrxs91/12/2019Current nicotine useLeft foot drop 10/12/2018Lumbar tlcipugcjvznl28/25/2019Lumbosacral spondylosis without uajxvzvbxe03/25/2019Spondylolisthesis of lumbar enxvex2206/04/2018Neurogenic lmuyvihvuvjp26/21/2018Daytime fxlkbpuysz84/13/2017Celiac artery compression zceasttz58/12/2017Fibrocystic breast uouutjj4206/22/20162966Lfruucjqvlzi46/24/2016 Atherosclerosis of coronary artery without angina kgfbiaqi07/15/2016Benign essential ibwlmmchrcbp77/15/2016Occlusion of carotid roztnu9410/02/2015 Assessment & Plan (03/19/2025 8:02 AM EDT): [...] stenosis- no neurological events or concerns noted. Uocxvjjdtj93/15/2016 Assessment & Plan (03/19/2025 8:02 AM EDT): [...] scale we will add Lexapro Gastroesophageal reflux etiwzro5910/02/2015 Immunizations ImmunizationAdministration DatesNext DueCovid (Pfizer) Bivalent Booster =>12 YRS 07/04/2022Influenza, High-dose Seasonal, Quadrivalent, Preservative Free 06/24/2021Influenza, Seasonal, Quadrivalent, Bknmebvcwi88/17/2022,07/08/2020 Pfizer SARS-CoV-2 Mmypcxamkmp09/07/2021,11/17/2020,10/27/2020neumococcal Polysaccharide NBW389604/01/2015 Family History Medical HistoryRelationNameCommentsCoronary artery diseaseFatherCoronary artery diseaseMotherStrokeMotherOvarian cancerSisterRelationNameStatusCommentsFather MotherSister Social History Tobacco UseTypesPacks/DayYears UsedDateSmoking Tobacco: Every DayCigarettes Passive Smoke Exposure: PastSmokeless Tobacco: Never Tobacco Cessation:Ready to Q uit: Not Asked; Counseling Given: Not Answered Comments:Uses Vuse vape. Nicotine content is 2.4. Alcohol UseStandard Drinks/WeekCommentsNot Currently0 (1 standard drink = 0.6 oz pure alcohol)OCCASIONALAHC UtilitiesAnswerDate RecordedIn the past 12 months has the [employer], gas, oil, or water Andela threatened to shut off services in your [...] were you homeless or living in a detention (including now)?No03/13/2025Hunger Vital SignAnswerDate RecordedWithin the past 12 months, you worried that your food would run out before you got the money to buymore.Never true03/13/2025Ran Out of Food in the Last YearNot on file 03/13/2025CommentsUnknownSex and Gender InformationValueDate RecordedSex Assigned at CprcqKcctgo22/26/2025 12:43 PM EDTLegal TfzKmcake18/29/2022 10:16 PM EDTGender XcrukncqScdfvo78/26/2025 12:43 PM EDTSexual OrientationHeterosexual or Mlpjkpxt83/26/2025 12:43 PM EDT Last Filed Vital Signs Vital SignReadingTime TakenCommentsBlood Mccbyrik449/7507 2:13 PM EDT Rdagf9923 2:13 PM LBEYcqdsogqack87.6 ??C (97.9 ??F)03/20/2025 12:00 PM EDTRespiratory Ekel3398 12:00 PM EDTOxygen Aaoztatevf89%04/04/2025 2:13 PM EDTInhaled Oxygen Concentration--Jmswyt83.2 kg (135 lb)04/04/2025 2:13 PM EDT Ngbkpc341.5 cm (5' 2 )04/04/2025 2:13 PM EDTBody Mass Index24.6907 2:13 PM EDT Plan of Treatment DateTypeDepartmentCare Team (Latest Contact Info)Jywnrtnryzl22/20/2025 2:40 PM ESTOffice Visit [facility] [address] [place] [address] Karlo Campuzano, VICE CHANCELLOR [address] [place] [address] Health MaintenanceDue DateLast DoneCommentsCT Guzkykkhewjw15/20/1950Diabetes: Hemoglobin A1C1949FIT-DNA1949FIT1949FOBT1949Medicare Annual Wellness (AWV)1950 0576Xrxpbltvdaons32/20/1950Diabetes: Retinopathy Pbugxeddv42/20/1960Depression Eyjplxjfj25/20/1962Adult Uroqvog3811/07/1971Zoster Vaccines (1 of 2)1999Pneumococcal Vaccine: 50+ Years (2 of 2 - PCV) COVID-19 Vaccine ( - season), 07/04/2022, 06/24/2021, Additional history existsInfluenza Vaccine (#1) , 06/24/2021, 07/08/2020Fall Risk Acswbwpof84/03/2026 3317Ilklxbrfwla291Colorectal Cancer Wcgzuurdx44/30/2031 HIB VaccinesAged OutNo longer eligible based on [...] MemberRelationshipSpecialtyStart DateEnd Date Jack Vogt MD [address] [facility] [address] [place] [address] [facility]05/08/22
--- OUTSIDE RECORDS SUMMARY | 2025-07-22 17:59 | XMS_ITS | Encounter Summary ---
Author Organization [facility] Address [address] [place] [address] Care Team Providers Care Medical Health Researcher Name Role Phone Jack Vogt MD Primary Care Provider [phone] Chantelle eRcio SEAFOOD PREPARER Unavailable [phone] Valerie Go RN Unavailable [phone] Encounter Details DateTypeDepartmentCare Team (Latest Contact Info)Wmaxkhotppy78/22/2025Patient Outreach [facility] [address] [place] [address] Valerie Go, DEBORA [address] [facility] [address] [place] [address] Social History Tobacco UseTypesPacks/DayYears UsedDateSmoking Tobacco: FormerCigarettes Smokeless Tobacco: Never Tobacco Cessation:Counseling Given: Not Answered Alcohol UseStandard Drinks/WeekCommentsDefer0 (1 standard drink = 0.6 oz pure alcohol)caffeine yes type:coffeePHQ-2AnswerDate RecordedPatient Health Questionnaire-2 Hsvxb119CommentsUnknownSex and Gender InformationValueDate RecordedSex Assigned at BirthNot on fileLegal SexFemale 11/30/2022 6:57 PM EDTGender IdentityNot on fileSexual OrientationNot on file documented as of this encounter Progress Notes * Valerie oG RN - 07/09/2025 12:09 PM EDT Chart [...] Pt states she has an appt with [facility] but was in the hospital. Cardiology appt [...] MemberRelationshipSpecialtyStart DateEnd Date Jack Vogt MD [address] [facility] [address] [place] [address] PCP - GeneralInternal Medicine01/24/23 Chantelle Recio LSW [address] [place] [address] Social WorkerFamily Medicine06/10/25 Valerie Go, RN [address] [facility] [address] [place] [id number] Registered NurseFamily Bbjbegqo48/13/25documented as of this encounter
--- OUTSIDE RECORDS SUMMARY | 2025-07-22 17:59 | XMS_ITS | Encounter Summary ---
Author Organization [facility] Address [address] [place] [address] Care Team Providers Care Tableman Name Role Phone Jack Vogt MD Primary Care Provider [phone] Chantelle Recio LITHOPRESS OPERATOR Unavailable [phone] Valerie Go RN Unavailable [phone] Encounter Details DateTypeDepartmentCare Team (Latest Contact Info)Axldqxgvwvt41/21/2025Telephone [facility] [address] [email or web address] [address] [place] [address] Jack Vogt MD [address] [facility] [address] [place], [place] [address] Social History Tobacco UseTypesPacks/DayYears UsedDateSmoking Tobacco: NeverSmokeless Tobacco: NeverAlcohol UseStandard Drinks/WeekCommentsDefer0 (1 standard drink = 0.6 oz pure alcohol)caffeine yes type:coffeePHQ-2AnswerDate RecordedPatient Health Questionnaire-2 Ehoeg283CommentsUnknownSex and Gender InformationValueDate RecordedSex Assigned at BirthNot on fileLegal SexFemale 11/30/2022 6:57 PM EDTGender IdentityNot on fileSexual OrientationNot on file documented as of this encounter Miscellaneous Notes * Telephone Encounter - Jaki Barnett MA - 07/09/2025 10:40 AM EDT Faxed over dx list to number given * Telephone Encounter - Brianne Portillo - 07/09/2025 9:54 AM EDT [facility] called back stating that they need a list of the patients diagnoses signed and dated by Sin and faxed to [phone]. She said they have the visit by brannon mckeon on 06/27 but it does not have all of her diagnoses on it and they need that for a face to face. * Telephone Encounter - CARO JOHNS - 07/08/2025 2:12 PM EDT Twyla from [facility] called and has some concerns with [...] MemberRelationshipSpecialtyStart DateEnd Date Jack Vogt MD [address] [place] [address] PCP - GeneralInternal Medicine01/24/23 Chantelle Recio LSW [address] [place] [address] Social WorkerFamily Medicine06/10/25 Valerie Go, DEBORA [address] [place] [address] Registered NurseFamily Kplkjzzd20/13/25documented as of this encounter
--- OUTSIDE RECORDS SUMMARY | 2025-07-22 17:59 | XMS_ITS | Encounter Summary ---
Author Organization [facility] Address [address] [place] [address] Care Team Providers Care Oxygen Equipment Technician Name Role Phone Jack Vogt MD Primary Care Provider Chantelle Recio SWATCH PASTER Unavailable [phone] Valerie Go RN Unavailable [phone] Encounter Details DateTypeDepartmentCare Team (Latest Contact Info)Skfkjlqcrhj16/22/2025bstract [facility] [address] [facility] [address] [place] [address] Jack Vogt MD [address] [facility] [address] [place], [place] [id number] Social History Tobacco UseTypesPacks/DayYears UsedDateSmoking Tobacco: FormerCigarettes Smokeless Tobacco: NeverAlcohol UseStandard Drinks/WeekCommentsDefer0 (1 standard drink = 0.6 oz pure alcohol)caffeine yes type:coffeePHQ-2AnswerDate RecordedPatient Health Questionnaire-2 Jumjp523CommentsUnknown Sex and Gender InformationValueDate RecordedSex Assigned at BirthNot on file Legal KxnCvbmas40/15/2023 6:57 PM EDTGender IdentityNot on fileSexual OrientationNot [...] MemberRelationshipSpecialtyStart DateEnd Date Jack Vogt MD [address] [facility] [address] [place] [address] PCP - GeneralInternal Medicine01/24/23 Chantelle Recio, HIEU [address] [place] [address] Social WorkerFamily Medicine06/10/25 Valerie Go, DEBORA [address] [facility] [address] [place] [address] Registered NurseFamily Yjwoliqy51/13/25documented as of this encounter
--- OUTSIDE RECORDS SUMMARY | 2025-07-22 17:59 | XMS_ITS | Encounter Summary ---
Author Organization [facility] Address [address] [place] [address] Care Team Providers Care Technical Administrative Assistant Name Role Phone Jack Vogt MD Primary Care Provider [phone] Chantelle Recio ROLLER TURNER Unavailable [phone] Valerie Go RN Unavailable [phone] Encounter Details DateTypeDepartmentCare Team (Latest Contact Info)Fdqwjknainy21/03/2025Clinisync Result Encounter [facility] External Department Unsolicited Provider, Generic External Data Social History Tobacco UseTypesPacks/DayYears UsedDateSmoking Tobacco: NeverSmokeless Tobacco: NeverAlcohol UseStandard Drinks/WeekCommentsNot Asked0 (1 standard drink = 0.6 oz pure alcohol)caffeine yes type:coffeePHQ-2AnswerDate RecordedPatient Health Questionnaire-2 Weimj625CommentsUnknownSex and Gender InformationValueDate RecordedSex Assigned at BirthNot [...] days02/25/2025 11:31 AM Ava MOHAMUDnt Health Questionnaire-2 Unwut358 11:31 AM CARO MOHAMUD * QuestionAnswerDate of AssessmentAuthorTrouble falling or staying asleep, or sleeping too muchMore than half the days02/25/2025 11:31 AM CARO MOHAMUD Feeling tired or having little energyMore than half the days02/25/2025 11:31 AM KANU MOHAMUDAPoor appetite or overeatingMore than half the days02/25/2025 11:31 AM CADE, KANUAFeeling bad about yourself - or that you are a failure or have let yourself or your family downSeveral days02/25/2025 11:31 AM Sheila BERNAL concentrating on things, such as reading the newspaper or watching televisionNearly every day02/25/2025 11:31 AM CADE, KANUAMoving or speaking so slowly that other people could have noticed? Or the opposite - being so fidgety or restless that you have been moving around a lot more than usual.Several days02/25/2025 11:31 AM KANU MOHAMUDAThoughts that you would be better off or hurting yourself in some wayNot at all02/25/2025 11:31 AM KANU MOHAMUDAPatient Health Questionnaire-9 Cnoqu0308/10/2025 11:31 AM CARO MOHAMUD * If you checked off any problems on this questionnaire so far,QuestionAnswer Date of AssessmentAuthorHow difficult have these problems made it for you to do your work, take care of things at home, or get along with other people? Somewhat tyvqjbjfc01/10/2025 11:31 AM CARO MOHAMUD documented as of this encounter Plan of Treatment Not on file documented as of this encounter Procedures Procedure NamePriorityDate/TimeAssociated DiagnosisCommentsMR ABDOMEN W AND WO KVIOMSZW21/03/2025 5:13 PM EST documented in this encounter Results * MR abdomen w and wo contrast (09/20/2024 5:13 PM EST)Anatomical Region LateralityModalityAbdomenMagnetic ResonanceSpecimen (Source)Anatomical Location / LateralityCollection Method / VolumeCollection TimeReceived Time 09/20/2024 5:13 PM EST Narrative 09/20/2024 5:15 PM EST [facility] ?[address] ? [place] [address] ? Magnetic Resonance Report ? Signed ? Patient: MARLENI NGUYEN L ?MR#: [id number] ?? : 1950 ?Acct:[id number] ?? Age/Sex: 73 / F ?ADM Date: 12/27/24 ?? Loc: LAB ? Attending Dr: Hawk Cardenas M.D. ? Ordering Physician: Hawk Cardenas M.D. ?? Date of Service: 09/13/24 ?? Procedure(s): MR abdomen wo/w con ?? Accession Number(s): [id number] ? cc: JACK VGOT ; Hawk Cardenas M.D. ? [facility] ? [address] ? [place] [address] ? Patient Name: ?? MARLENI NGUYEN ? MRN: [facility]:[id number] ? date: 1950 ?Sex: F ?? Assigned Patient Location: LAB ?? Current Patient Location: LAB ?? Accession/Order Number: [id number] ?? Exam Date: 09/13/2024 ??13:35 ?Report Date: 09/20/2024 ??17:13 ? At the request of: ?? HAWK ??RONALD ? Procedure: ??MR abdomen wo/w con ? EXAM: MR abdomen wo/w con 09/13/2024. ? COMPARISON: MRI of the abdomen with and without contrast 07/24/2023. CT of the ?? abdomen and pelvis without contrast 03/24/2021. ? TECHNIQUE: Coronal T2, axial T1 in and out of phase, axial T2 with fat ?? saturation as well as axial and coronal T1 fat-saturated images of the abdomen ? obtained. Sagittal T2 images were obtained. Axial and coronal T1 postcontrast ?? images were obtained in the nephrographic phase. ? HISTORY: Kidney Lesion N28.9 ? FINDINGS: Prior median sternotomy is identified. Right hepatic lobe measures ?? 15.7 cm superior to inferior. The spleen measures 11.4 cm superior to ?? inferior. ?? Gallbladder is surgically absent. ? 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 ?? Incidental note of severe degenerative changes as well as mild lumbar ?? levocurvature. Posterior dory and screw fixation is identified. Bowel pattern ?? does not appear to be obstructive. ? Heart size is stable. Lung bases are clear. ? Pancreas appears unremarkable. Both adrenals maintain adreniform shape and are ? similarly hyperplastic. Similar mild global atrophic changes of both kidneys, ?? asymmetrically greater toward the right. ? Intracortical image bilateral within the posterior cortex midpole level of the ? right kidney, axial image 14 of out of phase T1 image measures 6 mm in ?? diameter. Midpole lesion posteromedially on the left with similar appearance ?? measures 6 mm, image #15. These foci are increased in signal intensity on the ?? T1 in phase images. These are unchanged compared to CT study from 03/24/2021. ? Hemorrhagic/proteinaceous cyst at the upper pole of the right kidney seen ?? anterolaterally on image 12 of series 7 measures 10 mm in diameter. Small ?? exophytic cyst inferior pole left kidney again noted measuring 9 mm. ? Intracortical hemorrhagic/proteinaceous cyst at the upper pole of the left ?? kidney measures 10 mm, image 8 of series 8. These are unchanged. ? Right kidney has superior to inferior length of 9.1 cm as compared to left ?? kidney at 10.9 cm. ? MR/MR abdomen wo/w con ?? IMPRESSION: ? 1. Stable combination of simple and hemorrhagic/proteinaceous small bilateral ?? renal cysts as described unchanged. ? 2. 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 ? 3. 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 again ?? noted. ? 4. Prior cholecystectomy. Overall no acute intra-abdominal process. ? 5. Severe multilevel degenerative changes of the thoracic and lumbar spine ?? with ?? lumbar levoscoliosis. Posterior dory and screw fixation of the lumbar spine ?? from ?? L4 through S1 levels identified. ? Electronically authenticated by: TAWANNA ??CHIRAG ?? Date: 09/20/2024 ??17:13 ? Dictated By: ?Chirag Esquivel M.D. ? Signed By: ?09/20/241714 ? DD/ 12 ? TD/TT: ? Centrifugal Supervisor: Procedure Note Radiology, Radiologist, MD - 09/20/2024 The [place] [id number] Magnetic Resonance Report Signed Patient: MARLENI NGUYEN LMR#: [id number] : 1950Acct:[id number] Age/Sex: 73 / FADM Date: 09/13/24 Loc: LAB Attending Dr: Hawk Cardenas M.D. Ordering Physician: Hawk Cardenas M.D. Date of Service: 09/13/24 Procedure(s): MR abdomen wo/w con Accession Number(s): [id number] cc: JACK VOGT ; Hawk Cardenas M.D. The [address] [address] Patient Name: MARLENI NGUYEN MRN: [id number] date: 1950 Sex: F Assigned Patient Location: LAB Current Patient Location: LAB Accession/Order Number: [id number] Exam Date: 09/13/2024 13:35 Report Date: 09/20/2024 17:13 At the request of: HAWK CARDENAS Procedure: MR abdomen wo/w con EXAM: [...] T2 images were obtained. Axial and coronal K6nbrrmefqghfn images were obtained in the nephrographic phase. [...] Esquivel M.D. Signed By:09/20/241714 DD/ 12 TD/TT: Centrifugal Supervisor: Authorizing ProviderResult TypeResult StatusGeneric External Data ProviderIMG MRI PROCEDURESFinal Result documented in this encounter Visit Diagnoses Not on filedocumented in this encounter Care Teams Team MemberRelationshipSpecialtyStart DateEnd Date Jack Vogt MD [address] [facility] 110 [place] [address] PCP - GeneralInternal Medicine01/24/23 Chantelle Recio, ROLLER TURNER [address] [place] [address] Social WorkerFamily Medicine06/10/25 Valerie Go, DEBORA [address] [facility] [address] [place] [address] Registered NurseFamily Fianrrgw49/13/25documented as of this encounter
--- OUTSIDE RECORDS SUMMARY | 2025-07-22 18:00 | XMS_ITS | Encounter Summary ---
Author Organization [facility] Address [address] [place] [address] Care Team Providers Care Customer Service Agent Name Role Phone Jack Vogt MD Primary Care Provider [phone] Chantelle Recio COUNTERINTELLIGENCE SPECIALIST Unavailable [phone] Valerie Go RN Unavailable [phone] Encounter Details DateTypeDepartmentCare Team (Latest Contact Info)Iftuayjhnrf20/30/2025bstract [facility] [address] [facility] [address] [place] [address] Jack Vogt MD [address] [facility] 110 [place], [place] [id number] Social History Tobacco UseTypesPacks/DayYears UsedDateSmoking Tobacco: FormerCigarettes Smokeless Tobacco: NeverAlcohol UseStandard Drinks/WeekCommentsDefer0 (1 standard drink = 0.6 oz pure alcohol)caffeine yes type:coffeePHQ-2AnswerDate RecordedPatient Health Questionnaire-2 Ndlmt606CommentsUnknown Sex and Gender InformationValueDate RecordedSex Assigned at BirthNot on file Legal PrwCbvwhl04/15/2023 6:57 PM EDTGender IdentityNot on fileSexual OrientationNot [...] MemberRelationshipSpecialtyStart DateEnd Date Jack Vogt MD [address] [facility] [address] [place] [address] PCP - GeneralInternal Medicine01/24/23 Chantelle Recio, HIEU [address] [place] [address] Social WorkerFamily Medicine06/10/25 Valerie Go, DEBORA [address] [facility] [address] [place] [address] Registered NurseFamily Zziafgfo32/13/25documented as of this encounter
--- OUTSIDE RECORDS SUMMARY | 2025-07-22 18:00 | XMS_ITS | Encounter Summary ---
Author Organization [facility] Address [address] [facility] [place] [address] Care Team Providers Care Commercial Teller Name Role Phone Jack Vogt MD Primary Care Provider [phone] Chantelle Recio Unavailable [phone] Valerie Go RN Unavailable [phone] Encounter Details DateTypeDepartmentCare Team (Latest Contact Info)Rclcsoxxnvo78/24/2025Patient Outreach [facility] POP[facility]ATION [facility] [address] [place] [address] Chantelle Recio LSW [address] [place] [address] Social History Tobacco UseTypesPacks/DayYears UsedDateSmoking Tobacco: FormerCigarettes Smokeless Tobacco: NeverAlcohol UseStandard Drinks/WeekCommentsDefer0 (1 standard drink = 0.6 oz pure alcohol)caffeine yes type:coffeePHQ-2AnswerDate RecordedPatient Health Questionnaire-2 Ocfdk958CommentsUnknown Sex and Gender InformationValueDate RecordedSex Assigned at BirthNot on file Legal MqfPlanmu38/15/2023 6:57 PM EDTGender IdentityNot on fileSexual OrientationNot on filedocumented as of this encounter Progress Notes * HIEU Reese - 07/11/2025 2:21 PM EDT Spoke to pt for ED TCM. Offered home visit for completion of advanced directives. Pt agreeable and states she can ask friend to be present to witness signatures. Will plan on MondayJul.22, [employer] ANCHOR will follow up with pt the day prior to pick a time. documented in this encounter Plan of Treatment Not on file documented as of this encounter Goals GoalPatient Goal TypeAssociated ProblemsRecent ProgressPatient-Stated?Author Help patient manage antidepressant medication Care PlanPatient on antidepressant monitoring planRenetta Field NP documented as of this encounter Visit Diagnoses Diagnosis Stage 3b chronic kidney disease ([facility])- Primary Fibromyalgia Unspecified myalgia and myositis documented in this encounter Additional Health Concerns Active ProblemsNoted DateDiagnosed DatePatient on antidepressant monitoring plan 02/25/2025ssessmentNoted TimePHQ-9 Depression Total Score: 15002/25/2025 11:31 AM EDTdocumented as of this encounter Care Teams Team MemberRelationshipSpecialtyStart DateEnd Date Jack Vogt MD [address] [facility] [address] [place] [address] PCP - GeneralInternal Medicine01/24/23 Chantelle Recio LSW [address] [place] [address] Social WorkerFamily Medicine06/10/25 Valerie Go, DEBORA [address] [facility] [address] [place] [address] Registered NurseFamily Kxzzwmnf97/13/25documented as of this encounter
--- OUTSIDE RECORDS SUMMARY | 2025-07-22 18:00 | XMS_ITS | Encounter Summary ---
Author Organization [facility] Address [address] [place] [address] Care Team Providers Care Intern Brand Name Role Phone Jack Vogt MD Primary Care Provider [phone] Chantelle Recio CLOTH WASHER BACK TENDER Unavailable [phone] Valerie Go RN Unavailable [phone] Encounter Details DateTypeDepartmentCare Team (Latest Contact Info)Oqiccscggfc89/30/2025Patient Outreach [facility] POPULATION HEALTH [address] [place] [address] Valerie Go, DEBORA [address] [place] [address] Social History Tobacco UseTypesPacks/DayYears UsedDateSmoking Tobacco: FormerCigarettes Smokeless Tobacco: NeverAlcohol UseStandard Drinks/WeekCommentsDefer0 (1 standard drink = 0.6 oz pure alcohol)caffeine yes type:coffeePHQ-2AnswerDate RecordedPatient Health Questionnaire-2 Kjxpe105CommentsUnknown Sex and Gender InformationValueDate RecordedSex Assigned at BirthNot on file Legal YlzSbiyeq19/15/2023 6:57 PM EDTGender IdentityNot on fileSexual OrientationNot on filedocumented as of this encounter Progress Notes * Valerie Go RN - 07/17/2025 9:27 AM EDT Faxed request to Dr Patino- nephrology for notes from ov on 07/09 and 07/15/25. <July 17, 2025, 14:29 - Valerie Go RN> received ov note from 07/15 (Draft) from Nephrology, in chart No note for 07/09 <July 17, 2025, 14:45 - Valerie Go RN> note in chart documented in this encounter Plan of Treatment Not on file documented as of this encounter Goals GoalPatient Goal TypeAssociated ProblemsRecent ProgressPatient-Stated?Author Help patient manage antidepressant medication Care PlanPatient on antidepressant monitoring planRenetta Field EGYPTOLOGIST documented as of this encounter Visit Diagnoses Diagnosis Stage 3b chronic kidney disease ([facility])- Primary Benign essential hypertension Essential hypertension, benign documented in this encounter Additional Health Concerns Active ProblemsNoted DateDiagnosed DatePatient on antidepressant monitoring plan 02/25/2025ssessmentNoted TimePHQ-9 Depression Total Score: 15002/25/2025 11:31 AM EDTdocumented as of this encounter Care Teams Team MemberRelationshipSpecialtyStart DateEnd Date Jack Vogt MD [address] [facility] [address] [place] [address] PCP - GeneralInternal Medicine01/24/23 Chantelle Recio LSW [address] [place] [address] Social WorkerFamily Medicine06/10/25 Valerie Go, DEBORA [address] [facility] [address] [place] [address] Registered NurseFamily Lzphliwh78/13/25documented as of this encounter
--- OUTSIDE RECORDS SUMMARY | 2025-07-22 18:00 | XMS_ITS | Encounter Summary ---
Author Organization [facility] Address [address] [facility] [address] Care Team Providers Care Dental Assistant Name Role Phone Jack Vogt MD Primary Care Provider [phone] Chantelle Recio Unavailable [phone] Valerie Go RN Unavailable [phone] Encounter Details DateTypeDepartmentCare Team (Latest Contact Info)Fplmcswkhni03/03/2025Patient Outreach [facility] POP[facility]ATION [facility] [address] [place] [address] Chantelle Recio LSW [address] [place] [address] Social History Tobacco UseTypesPacks/DayYears UsedDateSmoking Tobacco: FormerCigarettes Smokeless Tobacco: NeverAlcohol UseStandard Drinks/WeekCommentsDefer0 (1 standard drink = 0.6 oz pure alcohol)caffeine yes type:coffeePHQ-2AnswerDate RecordedPatient Health Questionnaire-2 Fwwdh935CommentsUnknown Sex and Gender InformationValueDate RecordedSex Assigned at BirthNot on file Legal NsyMedlji55/15/2023 6:57 PM EDTGender IdentityNot on fileSexual OrientationNot on filedocumented as of this encounter Progress Notes * HIEU Reese - 07/21/2025 10:28 AM EST <July 21, 2025, 10:32 - HIEU Reese> Called pt to confirm 07/22 home visit to complete advanced directives. Pt's HH nurse is coming at 1:15 and was agreeable to witnessing signature. BOILERMAKER ASSEMBLY [employer]RE[employer] will plan to get to pt's home between 12:45-1PM on07/22. Reviewed current HIPAA and pt is interested in adding YUSEF Velazquezie. Will bring form to update as well. Pt states she did try calling Malia back on Monday to schedule home visit but no answer and she did not leave a voicemail. Will notify MIDWIFE that pt did call back. * HIEU Reese - 07/21/2025 10:28 AM EST <July 22, 2025, 13:24 - HIEU Reese> Met pt at her home for completion of Healthcare Power of Oil Tester and Living Will paperwork. Educated patient on HCPOA and Living Will, and assisted with completion of paperwork. This job specification writer and Allison from [facility] witnessed pt's signature. [employer] [place] will scan pt's paperwork into chart and drop off copies to her later this week. Pt requests that advanced directives be shared with [facility]. She voices that she does not want to be resuscitated. Advised that code status will need to be discussed with PCP or MIDWIFE for DNR orders to be put in place. HIPAA form was updated in visit as well. documented in this encounter Plan of Treatment Not on file documented as of this encounter Goals GoalPatient Goal TypeAssociated ProblemsRecent ProgressPatient-Stated?Author Help patient manage antidepressant medication Care PlanPatient on antidepressant monitoring planRenetta Field NP documented as of this encounter Visit Diagnoses Diagnosis Stage 3b chronic kidney disease ([facility])- Primary Benign essential hypertension Essential hypertension, benign documented in this encounter Additional Health Concerns Active ProblemsNoted DateDiagnosed DatePatient on antidepressant monitoring plan 02/25/2025ssessmentNoted TimePHQ-9 Depression Total Score: 15002/25/2025 11:31 AM EDTdocumented as of this encounter Care Teams Team MemberRelationshipSpecialtyStart DateEnd Date Jack Vogt MD [address] [facility] [address] [place] [address] PCP - GeneralInternal Medicine01/24/23 Chantelle Recio, HIEU [address] [place] [address] Social WorkerFamily Medicine06/10/25 Valerie Go, DEBORA [address] [facility] [address] [place] [address] Registered NurseFamily Hxcesiph32/13/25documented as of this encounter
--- OUTSIDE RECORDS SUMMARY | 2025-07-22 18:00 | XMS_ITS | Encounter Summary ---
Author Organization [facility] Address [address] [place] [address] Care Team Providers Care Proposal Specialist Name Role Phone Jack Simpson MD Primary Care Provider [phone] Chantelle Recio REPAIRER EVAPORATOR Unavailable [phone] Valerie Go RN Unavailable [phone] Reason for Visit * ReasonOnset DateCommentsrequesting new gmmosspeke32/30/2025 Encounter Details DateTypeDepartmentCare Team (Latest Contact Info)Gjguatkrodo92/30/2025Telephone [facility] [address] [place] [phone] Jack Simpson MD [address] [place], [place] [address] requesting new parameters Social History Tobacco UseTypesPacks/DayYears UsedDateSmoking Tobacco: FormerCigarettes Smokeless Tobacco: NeverAlcohol UseStandard Drinks/WeekCommentsDefer0 (1 standard drink = 0.6 oz pure alcohol)caffeine yes type:coffeePHQ-2AnswerDate RecordedPatient Health Questionnaire-2 Wyimz090CommentsUnknown Sex and Gender InformationValueDate RecordedSex Assigned at BirthNot on file Legal TgjEfaijn93/15/2023 6:57 PM EDTGender IdentityNot on fileSexual OrientationNot on filedocumented as of this encounter Miscellaneous Notes * Telephone Encounter - Summer Feliciano LPN - 07/17/2025 2:[address] simpson new parameters systolic >160 and distolic > 100 if pt is seeing cardiology next week and they are managing then future abnormals need to be reported to them so only one provider ismanaging and adjusting meds for this condition--home health notified after appt next week they willcall results to cardiology instead * Telephone Encounter - Summer Feliciano LPN - 07/17/2025 1:44 PM EDT [facility] called they have to call and report her elevated blood pressures this week 170/70,175/74 pt is asymptomatic, they state they know this is not abnormal for her but per the parameterswith home health they have to call PCP and report any systolic over 140 and any diastolic over 90--nurse states if you would like to change the parameters for this patient to higher reading so they do not have to call as frequently we can call them back with new parameters call back at [phone] documented in this encounter Plan of Treatment [...] Care Teams Team MemberRelationshipSpecialtyStart DateEnd Date Jack Simpson MD [address] [facility] [address] [place] [address] PCP - GeneralInternal Medicine01/24/23 Chantelle Recio, HIEU [address] [place], [place] [address] Social WorkerFamily Medicine06/10/25 Valerie Go, DEBORA [address] [facility] [address] [place] [id number] Registered NurseFamily Tlzhfeor31/13/25documented as of this encounter
--- OUTSIDE RECORDS SUMMARY | 2025-07-22 18:00 | XMS_ITS | Clinical Summary ---
Author Organization [facility] Address [address] [place] [address] Phone Care Team Providers Care Sales Team Leader Name Role Phone Unavailable Primary Care Provider Unavailabl e Social History Tobacco UseTypesPacks/DayYears UsedDateSmoking Tobacco: Never Assessed CommentsUnknownSex and Gender InformationValueDate RecordedSex Assigned at Not on fileLegal MrwRzkuzl61/26/2022 6:07 AM ESTGender IdentityNot on fileSexual OrientationNot on file Plan of Treatment Health MaintenanceDue DateLast DoneCommentsCT Jyvnxnxnfrnh28/20/1950Colonoscopy 1949Colorectal Cancer Xzajmklje81/20/1950FIT-DNA (Cologuard)1949FIT 1949Lipid Panel1950 7057Xczukqavpjzmw17/20/1950Welcome to Medicare Visit 1950MMR Vaccines (1 of [...]
--- OUTSIDE RECORDS SUMMARY | 2025-07-22 18:00 | XMS_ITS | Encounter Summary ---
Author Organization [facility] Address [address] [place] [address] Care Team Providers Care Photography Assistant Name Role Phone Jack Vogt MD Primary Care Provider [phone] Chantelle Recio HOURLY SIGN LANGUAGE INTERPRETER Unavailable [phone] Valerie Go RN Unavailable [phone] Encounter Details DateTypeDepartmentCare Team (Latest Contact Info)Wctqpmshxqo46/03/2025bstract [facility] [address] [facility] 110 [place] [address] Jack Vogt MD [address] [facility] [address] [place], [place] [address] Social History Tobacco UseTypesPacks/DayYears UsedDateSmoking Tobacco: FormerCigarettes Smokeless Tobacco: NeverAlcohol UseStandard Drinks/WeekCommentsDefer0 (1 standard drink = 0.6 oz pure alcohol)caffeine yes type:coffeePHQ-2AnswerDate RecordedPatient Health Questionnaire-2 Itokl366CommentsUnknown Sex and Gender InformationValueDate RecordedSex Assigned at BirthNot on file Legal TecGdfoyx67/15/2023 6:57 PM EDTGender IdentityNot on fileSexual OrientationNot [...] MemberRelationshipSpecialtyStart DateEnd Date Jack Vogt MD [address] [facility] [facility] [address] [place] [address] PCP - GeneralInternal Medicine01/24/23 Chantelle Recio, HIEU [address] [place] [address] Social WorkerFamily Medicine06/10/25 Valerie Go, DEBORA [address] [facility] [address] [place] [address] Registered NurseFamily Ypdtsoxv32/13/25documented as of this encounter
--- OUTSIDE RECORDS SUMMARY | 2025-07-22 18:00 | XMS_ITS | Clinical Summary ---
Author Organization [facility] Address [address] [place] [address] Care Team Providers Care Lens Blocker Name Role Phone Jack Vogt MD Primary Care Provider [phone] Allergies Active AllergyReactionsCriticalityNoted DateCommentsIodineAnaphylaxisHigh Hives, and anaphylactic reaction GrlabkHionuakzglGjnggy24/17/2018 skin irritation and itching with jewelry worn Shellfish Protein-Containing Drug FxfpnbnkSvobsxxzitySvfe67/17/2018Simvastatin Other (See Comments) Medications MedicationSigDispense QuantityRefillsLast FilledStart DateEnd DateStatus aspirin 81 MG tablet Take 81 mg by mouth dailyActive amLODIPine (NORVASC) 10 MG tablet Take 10 mg by mouth dailyActive zolpidem (AMBIEN) 10 MG tablet Take 10 mg by mouth nightly..02/27/2018Active valsartan (DIOVAN) 320 MG tablet Take 320 mg by mouth uwadf019Active tiZANidine (ZANAFLEX) 4 MG tablet Take 4 mg by mouth 2 times hqokc007Active LYRICA 75 MG capsule Take 75 mg by mouth daily..Active pantoprazole (PROTONIX) 40 MG tablet Take 40 mg by mouth xhtvl082Active NIFEdipine (PROCARDIA XL) 90 MG extended release tablet Indications:dose recently upped to 120mgTake 120 mg by mouth daily02/26/2018 Active isosorbide mononitrate (IMDUR) 60 MG extended release tablet Take 60 mg by mouth daily03/19/2018Active fenofibrate (TRICOR) 145 MG tablet Take 145 mg by mouth enugi208Active nitroGLYCERIN (NITROSTAT) 0.4 MG SL tablet Take [...] Active Problems ProblemNoted DateDiagnosed DateSpondylolisthesis of lumbar pwavlc3106/04/2018 Cardiovascular stress test pocnkbgc71/05/2018Carotid artery kqualcap64/05/2018 Chest pain05/23/2018Coronary xmjtpvriskpbsnry03/05/8007Rmrtgvphjvheb78/05/2018 Ajjscugrryimwj38/05/2018Hypertensive dbjqczqy13/05/5382Eprtchbxnpapva46/05/2018 Peripheral vascular ecgnkow6805/23/2018Spondylolisthesis of lumbosacral region 05/23/2018 Family History Medical [...] Date RecordedSex Assigned at BirthNot on fileLegal HxcTmczui02/10/2013 1:14 PM ESTGender IdentityNot on fileSexual OrientationNot on file Last Filed Vital Signs Vital SignReadingTime TakenCommentsBlood Wtizveth325/4109 7:23 AM EDT Lvozd4248 7:23 AM IQFCbgedttrmgk57.7 ??C (98 ??F)06/28/2019 10:26 AM EDT Respiratory Eied798506/06/2018 10:48 PM EDTOxygen Kulybklvee57%06/07/2018 7:23 AM EDTInhaled Oxygen Concentration--Hpnccf83.2 kg (190 lb)06/28/2019 10:26 AM EDT Iwgrbe272 cm (5' 3 )06/28/2019 10:26 AM EDTBody Mass Index33.6606/28/2019 10:26 AM EDT Plan of Treatment Not on file Medical Devices ImplantedTypeAreaManufacturerDevice IdentifierShelf Expiration DateModel / Serial / LotGraft Canc Chip 30cc [id number] - [id number] Implanted:Qty: 1 on 06/04/2018 by Per Barber MD at [facility] Bone/Graft/Tissue/Human/SynthN/A: Spine LumbarMUSCULOSKELETAL TRANSPLANT FND-PMM 04/02/[id number] / [id number] / Kit Sealant Surgiflo Hemostatic Matrix - [id number] Implanted:Qty: 1 on 06/04/2018 by Per Barber MD at [facility] Bone/Graft/Tissue/Human/SynthN/A: Spine LumbarJNJ: DEPUY ORTHOPAEDICS-PMM 04/17/20202994 / [id number] / Kit Sealant Surgiflo Hemostatic Matrix Implanted:Qty: 1 on 06/04/2018 by Per Barber MD at [facility] Bone/Graft/Tissue/Human/SynthN/A: Spine LumbarJNJ: DEPU[employer] ORTHOPAEDICS-PMM 01/15/[id number] / / [id number] Polyaxial Reline-O 2s 6.5x55mm Implanted:Qty: 3 on 06/04/2018 by Per Barber MD at [facility] Screw/Plate/Nail/RodN/A: Spine LumbarNUVASIVE INC-[id number] / / Screw Polyaxial Reline-O 6.5x50mm Implanted:Qty: 1 on 06/04/2018 by Per Barber MD at [facility] Screw/Plate/Nail/RodN/A: Spine LumbarNUVASIVE INC-[id number] / / Wally-Cellular Bone Matrix 10cc - [id number] Implanted:Qty: 1 on 06/04/2018 by Per Barber MD at [facility] SpineN/A: Spine LumbarNUVASIVE INC-PMM01/20/[id number] / [id number] / Screw Lk Reline Opn Tulip 5.5mm Implanted:Qty: 6 on 06/04/2018 by Per Barber MD at [facility] SpineN/A: Spine LumbarNUVASIVE INC-[id number] / / Impl Spine Coroent Mp Lg [id number] 4deg Implanted:Qty: 2 on 06/04/2018 by Per Barber MD at [facility] SpineN/A: Spine LumbarNUVASIVE INC-[id number] / / Impl Spine Emmanuel Reline-O Lrdtc 5.5x70mm Implanted:Qty: 2 on 06/04/2018 by Per Barber MD at [facility] SpineN/A: Spine LumbarNUVASIVE INC-[id number] / / Reline Reduction Screw Implanted:Qty: 2 on 06/04/2018 by Per Barber MD at [facility] N/A: Spine Lumbar Insurance Advance Directives * Full Code (Latest Code Status on File) Date ActivatedDate InactivatedComments06/04/2018 6:16 PM06/07/2018 7:05 PM Care Teams Team MemberRelationshipSpecialtyStart DateEnd Date Jack Vogt MD [address] [place] [address] PCP - GeneralInternal Medicine03/13/18
--- OUTSIDE RECORDS SUMMARY | 2025-07-22 18:00 | XMS_ITS | Clinical Summary ---
Author Organization [facility] Address [address] [place] [address] Care Team Providers Care Appointment Coordinator Name Role Phone Jack Vogt MD Primary Care Provider [phone] Chantelle Recio B[employer]IAL [employer] SALESPERSON Unavailable [phone] Valerie Go RN Unavailable [phone] Allergies Active AllergyReactionsCriticalityNoted XgxkQlnpcivwJziomvjkuoag75/22/2023 Other Reaction(s): Myalgias Kxsiuv2205/09/2023 Other Reaction(s): Unknown Cwfiijbouo22/22/2023 Other Reaction(s): Myalgias SvfowsMzdodjbgefUdzkcu43/17/2018 skin irritation and itching with jewelry worn Other reaction(s): Dermatitis skin irritation and itching with jewelry worn Other12/12/2024 Other Reaction(s): myalgias (muscle pain) Pneumococcal Vac Puxeaozyeg80/22/2023 Other Reaction(s): Swelling, Redness Qcqwqjxwiyv17/22/2023 Other Reaction(s): Myalgias Shellfish WmgosbcWfwbbcnsnwiOhxz15/17/6323Xmstnjdoqtw11/22/2023 Other Reaction(s): Myalgias KhxmxnuIwlsptv92/27/2025 Other Reaction(s): Other (See Comments) Apjkonfmocq71/22/2023 Other Reaction(s): Vomiting Medications MedicationSigDispense QuantityRefillsLast FilledStart DateEnd DateStatus nitroglycerin (Nitrostat) 0.4 MG SL tablet Indications:Atherosclerosis of [place] coronary artery of [place] heart with stable angina pectorisPlace 1 tablet (0.4 mg) under the tongue every 5 (five) minutes if needed for chest pain 90 tablet 1204Active fenofibrate (Tricor) 145 MG tablet Indications:Mixed hyperlipidemiaTAKE 1 TABLET BY MOUTH EVERY DAY 90 tablet 4025Active ezetimibe (Zetia) 10 MG tablet Indications:Stage 3b chronic kidney disease ([facility])TAKE 1 TABLET BY MOUTH EVERY DAY [...] tablet (100 mg) before bedtime. 90 tablet 1107/0798686Active NIFEdipine XL (Procardia XL) 90 MG 24 hr tablet Indications:Atherosclerosis of [place] coronary artery of [place] heart with stable angina pectorisTake 1 tablet [...] doxazosin (Cardura) 2 MG tablet Indications:Atherosclerosis of [place] coronary artery of [place] heart with stable angina pectorisTAKE 1 TABLET (2 MG) BY MOUTH IN THE MORNING 90 tablet /6Active escitalopram (Lexapro) 5 MG tablet Indications:Depressive disorderTAKE 1 TABLET BY MOUTH EVERY DAY IN THE MORNING 90 tablet 5Active escitalopram (Lexapro) 5 MG tablet Indications:Depressive disorderTake 1 tablet (5 mg) by mouth in the morning. 30 tablet Discontinued doxazosin (Cardura) 2 MG tablet Indications:Atherosclerosis of [place] coronary artery of [place] heart with stable angina pectorisTake 1 tablet (2 mg) by mouth in the morning. 30 tablet Discontinued Active Problems ProblemNoted DateDiagnosed ZtrwXbqjjdysxm20/07/2024Stage 3b chronic kidney dnmfmxt6610/04/2023Localized edema10/04/2023Kidney noxped4805/10/2023ulmonary embolism with dwhlhxffek36/18/2023therosclerosis of [place] coronary artery of [place] heart with stable angina kmnpupnr46/18/2023ERD (gastroesophageal reflux disease)05/05/2023epressive wttfyttj44/18/2023enign essential hypertension 05/05/2023arotid artery wqfgyafml51/18/2023Mixed efnbfrxdonjmjp78/18/2023 Primary osteoarthritis of both knees05/05/20234504Roftsbeidcou84/18/2023rimary generalized hypertrophic njmqdmgcumsild09/18/2023Fibrocystic breast changes 05/05/2023Stricture of mkzilg6105/05/2023AD (peripheral artery disease)05/05/2023 Tobacco esobayxkqm24/18/2023rteriosclerosis zkdbofqvbl31/18/2023Renal artery fkbbavtb19/18/2023aytime /18/2023Spinal stenosis, lumbar region with neurogenic dcwdrfrfvmug60/18/2023Radiculopathy of lumbar qbgtaj5305/05/2023 Degenerative lumbar spinal hbqkvuxh34/18/2023Spondylolisthesis of lumbar region 05/05/2023Spondylosis of lumbar spine05/05/2023Left foot drop05/05/2023Venous insufficiency (chronic) (peripheral)05/05/2023eripheral arteriosclerosis 05/05/2023Obesity (BMI 30.0-34.9)05/05/2023Non-intractable vomiting with nausea 05/05/2023Insomnia due to medical ovaxuyqxr86/18/2023ortic dissection, xzpmxjcyc36/18/2023ecreased estrogen level05/05/2023ge-related osteoporosis without current pathological vwdyeoik40/18/2023roteinuria, unspecified 05/05/2023Thyroid pxdewr0405/05/2023Sinus edqgchsmox32/18/3248Mgbgmuw31/18/2023 Irritable bowel gqtojzcj87/18/2023nemia due to chronic blood loss05/05/2023 Allergy to ypzscgq2805/05/2023Statin xqvcksypgez36/18/2023ostsurgical percutaneous transluminal coronary angioplasty iarkcw3605/05/2023nticoagulated 01/04/2023oronary atherosclerosis of autologous vein bypass graft05/04/2022 Overview (05/10/2023): Last Assessment & Plan: stable Coronary stent bfcjxr2605/04/2022ulmonary ahnrmwz0405/04/2022History of pulmonary tjbszdzu07/30/2021History of thromboembolism of vein03/31/2021History of coronary artery bypass auifian1901/09/2020History of coronary artery stent avmxkgrcw80/23/2020Allergy to statin yovvwblpdx79/20/2020Current nicotine use 02/27/2019Lumbosacral spondylosis without nmvxhidjqv83/25/2019Cardiovascular stress test npipbftm14/05/2018Chest pain05/23/20180108Bdhgrumsedejj36/05/2018 Neurogenic shpdelqiakrf72/21/2018 Resolved Problems ProblemNoted DateDiagnosed DateResolved DateGeneralized abdominal pain05/05/2023 04/03/2025Type 2 diabetes mellitus with other diabetic kidney complication /11/20239149Mpbqbecsg24Diabetic renal disease /11/2023 Encounters DateTypeDepartmentCare AqasIerqchcpmgl38/03/2025Patient Outreach [facility] [address] [place] [address] Chantelle Recio LSW 07/21/2025bstract [facility] [address] [place] [phone] Jack Vogt MD 07/17/2025Telephone [facility] [address] [place] [address] Jack Vogt MD requesting new sggjcenses12/30/2025Patient Outreach [facility] [address] [place] [address] Valerie Go RN 07/17/2025bstract [facility] [address] [place] [address] Jack Vogt MD 07/14/2025bstract [facility] [address] [place] [address] Jack Vogt MD 07/11/2025Patient Outreach [facility] [address] [place] [address] Chantelle Recio LSW 07/11/2025linisync Result Encounter [facility] External Department Unsolicited Provider, Generic External Data 07/10/2025Patient Outreach [facility] [address] [place] [address] Chantelle Recio LSW 07/09/2025linisync Result Encounter [facility] External Department Unsolicited Provider, Generic External Data 07/09/2025Patient Outreach [facility] [address] [place] [address] Valerie Go RN 07/09/2025bstract [facility] [address] [place] [address] Jack Vogt MD 07/08/2025Telephone [facility] [address] [place] [address] Jack Vogt MD 07/03/2025bstract [facility] [address] [place] [address] Jack Vogt MD 06/30/2025Patient Outreach [facility] [address] [place] [address] Chantelle Recio LSW 06/27/2025 12:00 PM EDTOffice Visit [facility] [address] [place] [address] 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 NP Chronic kidney disease, stage 4 (severe) (HCC) (Primary Dx); Chronic diastolic congestive heart failure (HCC); Atherosclerosis of [place] coronary artery of [place] heart with stable angina pectoris; Benign essential hypertension; Degenerative lumbar spinal stenosis; Radiculopathy of lumbar region; Spinal stenosis, lumbar region with neurogenic claudication; Spondylolisthesis of lumbar region; Need for home health care; Routine lab draw; Advanced care planning/counseling ykmvjstbsg61/10/2025Telephone [facility] [address] [place] [address] 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 NP 06/23/2025Telephone [facility] [address] [place] [address] Jack Vogt MD 06/20/2025Refill [facility] [address] [place] [address] Jack Vogt MD Atherosclerosis of [place] coronary artery of [place] heart with stable angina pectoris; Depressive yfqtipfk24/23/2025Patient Outreach [facility] [employer] 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 ; Chronic diastolic congestive heart failure (HCC); Bepthneeuxv13/22/2025linisync Result Encounter [facility] External Department Unsolicited Jack Vogt MD 06/09/2025Telephone [facility] [address] [place] [address] Jack Vogt MD 06/09/2025Telephone [facility] [address] [place] [address] Jack Vogt MD call with jjwsecw5106/09/2025amboo flowsheet [facility] [address] [place] [address] Jack Vogt MD 06/09/20259287Gjxfra38/08/2025bstract [facility] [address] [place] [address] Jack Vogt MD 05/21/2025bstract [facility] [address] [place] [address] Jack Vogt MD 05/14/2025Telephone [facility] [address] [place] [address] Jack Vogt MD 05/13/2025bstract [facility] [address] [place] [address] Jack Vogt MD 05/12/2025bstract [facility] [address] [place] [address] Jack Vogt MD 05/08/2025Telephone [facility] [address] [place] [address] Jack Vogt MD Brbtdd9604/29/2025bstract [facility] [address] [place] [address] Jack Vogt MD 04/29/2025bstract [facility] [address] [place] [address] Jack Vogt MD 04/24/2025bstract [facility] [address] [place] [address] Jack Vogt MD 04/24/2025bstract [facility] [address] [place] [address] Jack Vogt MD 04/24/2025bstract [facility] [address] [place] [address] Jack Vogt MD from Last 3 Months Immunizations ImmunizationAdministration DatesNext DueInfluenza, High-dose Seasonal, Quadrivalent, Preservative Free06/24/2021Influenza, Seasonal, Quadrivalent, Oigquvvqwf67/17/2022,07/08/2020Moderna Bivalent Booster Hcaudqjwype21/17/2022 Pneumococcal Polysaccharide MSNS1778Smallpox Monkeypox, Live Attenuated, Preservative Free07/08/2020 Family History Medical HistoryRelationNameCommentsLymphomaBrotherHeart diseaseFatherStroke FatherHeart diseaseMotherOvarian cancerSisterDiabetesSonRelationNameStatus CommentsBrotherFatherDeceasedMotherDeceasedSisterSonAlive Social History Tobacco UseTypesPacks/DayYears UsedDateSmoking Tobacco: FormerCigarettes Smokeless Tobacco: Never Tobacco Cessation:Counseling Given: Not Answered Alcohol UseStandard Drinks/WeekCommentsDefer0 (1 standard drink = 0.6 oz pure alcohol)caffeine yes type:coffeePHQ-2AnswerDate RecordedPatient Health Questionnaire-2 Ijubg233CommentsUnknownSex and Gender InformationValueDate RecordedSex Assigned at BirthNot on fileLegal SexFemale 11/30/2022 6:57 PM EDTGender IdentityNot on fileSexual OrientationNot on file Last Filed Vital Signs Vital SignReadingTime TakenCommentsBlood Jivjyktp188/6006/27/2025 1:28 PM EDT Jkhab686606/27/2025 1:28 PM WZVSaploqpupqu73.4 ??C (97.5 ??F)06/27/2025 1:28 PM EDTRespiratory Vtuc698002/25/2025 11:40 AM EDTOxygen Bsgoaqcupf64%06/27/2025 1:28 PM EDTInhaled Oxygen Concentration--Gyyiwm84.5 kg (129 lb)06/09/2025 11:14 AM IPBFepdzt481.5 cm (5' 2 )06/09/2025 11:14 AM EDTBody Mass Index23.5909 11:14 AM EDT Plan of Treatment Health MaintenanceDue DateLast DoneCommentsCT Vbmazydqbgpe78/20/1950FIT-DNA 1949FIT1949FOBT1949 0991Sreiajbsqzjsp10/20/1950Diabetes: Retinopathy Aajzrnutr69/11/2022, 3Diabetes: Urine Protein Ptjwwomiv68/, 10/09/2019, 09/28/2018Diabetes: Hemoglobin A1C /, 03/20/2024, 12/13/2023, Additional history existsCOVID-19 Vaccine ( season), 06/24/2021, 11/17/2020, Additional history existsInfluenza Vaccine (#1)51, 06/24/2021, 07/08/20203157Popesulmlbt44/30/912886/olorectal Cancer Uiihemxbu42/30/2031 Pneumococcal Vaccine: 65+ XivttAfohevnnhfpp83/15/2015MammogramDiscontinued 02/05/2024, 02/05/2024, 02/03/2023, Additional history exists Goals GoalPatient Goal TypeAssociated ProblemsRecent ProgressPatient-Stated?Author Help patient manage antidepressant medication Care PlanPatient on antidepressant monitoring Renetta Enamorado NP Procedures Procedure NamePriorityDate/TimeAssociated DiagnosisCommentsHMHP URINALYSIS, WITH QXBIJZMGQNLAbeonir73/24/2025 12:10 PM EDT TB[facility] URINE T PROTEIN CREAT MLVUUTsssmec09/24/2025 12:10 PM EDT VITAMIN G75Atznrjn07/22/2025 2:40 PM EDT HMHP PTH, AYPSZSJKOCVAMEWemkrae52/22/2025 2:40 PM EDT ALL NWYAMBFEZPyqethu22/22/2025 2:40 PM EDT ALL URIC KVKCArgzcua64/22/2025 2:40 PM EDT ALL RENAL FUNCTION LOHFIJydiyja05/22/2025 2:40 PM EDT ALL FOLIC QSENZqejhkr01/22/2025 2:40 PM EDT TBH VITAMIN D 25 CIAhwpayj84/22/2025 2:40 PM EDT [facility] CDKDSKXGCjzpliu70/22/2025 2:40 PM EDT [facility] AND CYFYVticykg05/22/2025 2:40 PM EDT HMHP CBC WITH PLATELET NO BSYPFCBZDORUAijtvaj49/22/2025 2:40 PM EDT COMPREHENSIVE METABOLIC NOPTMAqpzfpz43/10/2025 3:03 PM EDT Chronic kidney disease, stage 4 (severe) (HCC) ALL THYROXINE (T4) ZILERflzenl28/22/2025 12:41 PM EDT ALL CBC WITH AUTO HDQUXvlzson27/22/2025 12:41 PM EDT TSH W/REFLEX G6Eqqimap60/22/2025 12:41 PM EDT ALL PRO SGSUwaccsy28/22/2025 12:41 PM EDT [facility] CMP (CMP) (FOR REMOTE [facility] USE)Lmsgpaj2306/09/2025 12:41 PM EDT POCT GLYCATED HEMOGLOBIN, PXOEEQvjrfpn01/27/2025 12:07 PM EDT Type 2 diabetes mellitus with diabetic peripheral angiopathy without gangrene (HCC) MAMMOGRAM*Inanult3102/05/2024 1:10 PM EDTMICROALBUMIN / CREATININE URINE RATIO Avvctmr4612/13/2023 11:50 AM EDT Type 2 diabetes mellitus with stage 3b chronic kidney disease, without long-term current use of insulin (HCC) COLOR FUNDUS PHOTOGRAPHY - OU - BOTH VAVVWocuivn32/03/2023 12:00 PM EST IVLZPFIIQCSNraquxp54/30/2021 12:00 PM EDT from Last 3 Months or Most Recently Relevant to Health Maintenance Results * (ABNORMAL) TB[facility] URINE T PROTEIN CREAT RATIO (07/11/2025 12:10 PM EDT)Component ValueRef RangeTest MethodAnalysis TimePerformed AtPathologist SignatureTOTAL PROTEIN URINE EDKLLB613.1(H)<=11.9 mg/dLTBHCREATININE URINE UNPAPA73.3320.00 - 300.00 mg/dLTBHPROTEIN CREATININE RATIO URINE2.49TBHSpecimen (Source) Anatomical Location / LateralityCollection Method / VolumeCollection Time Received Time07/11/2025 12:10 PM EDT1 1:28 PM EDT Narrative CLINISYNC - 07/11/2025 2:01 PM EDT Authorizing ProviderResult TypeResult StatusGeneric External Data Provider CLINISYNCFinal ResultPerforming OrganizationAddressCity/State/ZIP CodePhone Number [facility] * (ABNORMAL) HMHP URINALYSIS, WITH MICROSCOPIC (07/11/2025 [...] Provider CLINISYNCFinal ResultPerforming OrganizationAddressCity/State/ZIP CodePhone Number KATHY [facility] * VITAMIN B12 (07/09/2025 2:40 PM EDT)ComponentValueRef RangeTest MethodAnalysis TimePerformed AtPathologist SignatureVITAMIN [id number] - 1245 pg/mLTBHComment: Performed at: ??CB - [facility] [address], [place], [place] ??[id number] Ccnp: Raul Medel PhD, Phone: ??[phone] Specimen (Source)Anatomical Location / LateralityCollection Method / Volume Collection TimeReceived Time07/09/2025 2:40 PM EDT1 3:28 PM EDT Narrative CLINISYNC - 07/11/2025 4:07 AM EDT Authorizing ProviderResult TypeResult StatusGeneric External Data ProviderLAB BLOOD ORDERABLESFinal ResultPerforming OrganizationAddressty/State/ZIP Code Phone Number KATHY [facility] * TB[facility] VITAMIN D 25 [place] (07/09/2025 2:40 PM EDT)ComponentValueRef RangeTest Method Analysis TimePerformed AtPathologist SignatureVITAMIN D28.8ng/mLTBHComment: <20 ng/mL Vit D deficient 20-<30 ng/mL Vit D insufficient 30-100 ng/mL ??Vit D sufficient >100 ng/mL Potential Toxicity Specimen (Source)Anatomical Location / LateralityCollection Method / Volume Collection TimeReceived Time07/09/2025 2:40 PM EDT1 3:28 PM EDT Narrative CLINISYRI - 07/09/2025 4:27 PM EDT [facility] DROP OFF Authorizing ProviderResult TypeResult StatusGeneric External Data Provider CLINISYNCFinal ResultPerforming OrganizationAddressty/State/ZIP CodePhone Number KATHY [facility] * (ABNORMAL) [facility] (07/09/2025 2:40 PM EDT)ComponentValueRef Range Test MethodAnalysis TimePerformed AtPathologist SignatureTBH IRON40.0(L)50.0 - 170.0 ug/dLTBHTBH TOTAL IRON BINDING EHQCOZTT303.0250.0 - 450.0 ug/dLTBHTBH PERCENT IRON ETNNNDDTAK57.3%TBHSpecimen (Source)Anatomical Location / LateralityCollection Method / VolumeCollection TimeReceived Time07/09/2025 2:40 PM EDT1 3:28 PM EDT Narrative CLINISYNC - 07/09/2025 4:06 PM EDT Authorizing ProviderResult TypeResult StatusGeneric External Data Provider CLINISYNCFinal ResultPerforming OrganizationAddressCity/State/ZIP CodePhone Number [facility] * (ABNORMAL) HMHP PTH, INTRAOPERATIVE (07/09/2025 2:40 PM EDT)ComponentValueRef RangeTest MethodAnalysis TimePerformed AtPathologist SignaturePTH, PDZRGB87(A) 15 - 65 pg/mLTBHComment: Performed at: ?? - [facility] [address] ??[id number] Ccnp: Raul Medel PhD, Phone: ??[phone] Specimen (Source)Anatomical Location / LateralityCollection Method / Volume Collection TimeReceived Time07/09/2025 2:40 PM EDT1 3:28 PM EDT Narrative CLINISYNC - 07/10/2025 12:08 PM EDT Authorizing ProviderResult TypeResult StatusGeneric External Data Provider CLINISYNCFinal ResultPerforming OrganizationAddressCity/State/ZIP CodePhone Number [facility] * (ABNORMAL) [facility] CBC WITH PLATELET NO DIFFERENTIAL (07/09/2025 2:40 PM EDT) ComponentValueRef RangeTest MethodAnalysis TimePerformed AtPathologist SignatureTBH WBC4.34.0 - 11.0 10 3/uLTBHTBH RBC3.14(L)4.20 - 5.40 10 6/uLTBH TBH HGB9.1(L)12.0 - 16.0 g/dLTBHTBH HCT26.8(L)36.0 - 48.0 %TBHTBH MCV85.481.0 - 99.0 fLTBHTBH MCH29.026.7 - 34.0 pgTBHTBH MCHC34.029.9 - 35.2 g/dLTBHTBH RDW 17.8(H)11.0 - 15.0 %TBHTBH ASD507020 - 450 10 3/uLTBHTBH MPV10.79.5 - 13.5 fL TBHSpecimen (Source)Anatomical Location / LateralityCollection Method / Volume Collection TimeReceived Time07/09/2025 2:40 PM EDT1 3:28 PM EDT Narrative CLINISYNC - 07/09/2025 3:55 PM EDT Authorizing ProviderResult TypeResult StatusGeneric External Data Provider CLINISYNCFinal ResultPerforming OrganizationAddressCity/State/ZIP CodePhone Number [facility] * [facility] FERRITIN (07/09/2025 2:40 PM EDT)ComponentValueRef RangeTest Method Analysis TimePerformed AtPathologist ForgpizqsOOZMECMD96.08.0 - 252.0 ng/mLTBH Specimen (Source)Anatomical Location / LateralityCollection Method / Volume Collection TimeReceived Time07/09/2025 2:40 PM EDT1 3:28 PM EDT Narrative CLINISYRI - 07/09/2025 4:27 PM EDT [facility] Authorizing ProviderResult TypeResult StatusGeneric External Data Provider CLINISYNCFinal ResultPerforming OrganizationAddressCity/State/ZIP CodePhone Number [facility] * (ABNORMAL) ALL URIC ACID (07/09/2025 2:40 PM EDT)ComponentValueRef RangeTest MethodAnalysis TimePerformed AtPathologist SignatureURIC ACID8.1(H)2.6 - 6.0 mg/dLTBHSpecimen (Source)Anatomical Location / LateralityCollection Method / VolumeCollection TimeReceived Time07/09/2025 2:40 PM EDT1 3:28 PM EDT Narrative CLINISYNC - 07/09/2025 4:41 PM EDT Authorizing ProviderResult TypeResult StatusGeneric External Data Provider CLINISYNCFinal ResultPerforming OrganizationAddressCity/State/ZIP CodePhone Number [facility] * (ABNORMAL) ALL RENAL FUNCTION PANEL (07/09/2025 2:40 PM EDT)ComponentValueRef RangeTest MethodAnalysis TimePerformed AtPathologist PqpusymvjBDUJCA263764 - 145 mmol/LTBHPOTASSIUM3.2(L)3.5 - 5.1 mmol/KMZVBIZAGRBY64517 - 107 mmol/LTBH CARBON ZEZLFWQ69.921.0 - 32.0 mmol/LTBHANION GAP16.1QUTNMIEQUT7975 - 106 mg/dL TBHBLOOD UREA QXEJXTUR96.0(H)7.0 - 18.0 mg/dLTBHCREATININE3.20(H)0.55 - 1.02 mg/dLTBHTBH EGFR-AF VJGMTPKA41(L)>=60 mL/min/1.73m 2TBHTBH EGFR-NON AF WWXIWFTS64(L)>=60 mL/min/1.73m 2TBHBUN CREATININE RATIO20.1ZMVJJBUIJB4.1(L)8.5 - 10.1 mg/dLTBHPHOSPHORUS4.22.6 - 4.7 mg/dLTBHALBUMIN LEVEL3.1(L)3.4 - 5.0 g/dLTBHSpecimen (Source)Anatomical Location / LateralityCollection Method / VolumeCollection TimeReceived Time07/09/2025 2:40 PM EDT1 3:28 PM EDT Narrative CLINISYNC - 07/09/2025 4:41 PM EDT Authorizing ProviderResult TypeResult StatusGeneric External Data Provider CLINISYNCFinal ResultPerforming OrganizationAddressCity/State/ZIP CodePhone Number [facility] * (ABNORMAL) ALL MAGNESIUM (07/09/2025 2:40 PM EDT)ComponentValueRef RangeTest MethodAnalysis TimePerformed AtPathologist SignatureMAGNESIUM0.6(LL)1.8 - 2.4 mg/dLTBHComment:RESULTS CALLED TOSpecimen (Source)Anatomical Location / LateralityCollection Method / VolumeCollection TimeReceived Time07/09/2025 2:40 PM EDT1 3:28 PM EDT Narrative CLINISYNC - 07/09/2025 4:41 PM EDT Authorizing ProviderResult TypeResult StatusGeneric External Data Provider CLINISYNCFinal ResultPerforming OrganizationAddressCity/State/ZIP CodePhone Number CLINISYNC [facility] * (ABNORMAL) ALL FOLIC ACID (07/09/2025 2:40 PM EDT)ComponentValueRef RangeTest MethodAnalysis TimePerformed AtPathologist SignatureFOLATE4.80(L)8.60 - 58.90 ng/mLTBHSpecimen (Source)Anatomical Location / LateralityCollection Method / VolumeCollection TimeReceived Time07/09/2025 2:40 PM EDT1 3:28 PM EDT Narrative CLINISYNC - 07/09/2025 4:27 PM EDT [facility] DROP OFF Authorizing ProviderResult TypeResult StatusGeneric External Data Provider CLINISYNCFinal ResultPerforming OrganizationAddressCity/State/ZIP CodePhone Number CLINISYNC [facility] * (ABNORMAL) Comprehensive metabolic panel (06/27/2025 3:03 PM EDT)Component ValueRef RangeTest MethodAnalysis TimePerformed AtPathologist SignatureGlucose 124(H)65 - 99 mg/dLQUESTComment: ? Fasting reference interval For someone without known diabetes, a glucose value between 100 and 125 mg/dL is consistent with prediabetes and should be confirmed with a follow-up test. BUN72(H)7 - 25 mg/dLQUESTCreatinine3.66(H)0.60 - 1.00 mg/dBYSNPAGJKC71(L)> OR = 60 mL/min/1.10h4SAQFOOOL/CREATININE ZXKJQ867 - 22 (calc)TKWMFFrdvxf251283 - 146 mmol/LQUESTPotassium, Bld3.3(L)3.5 - 5.3 mmol/KKEBJCFfhyiaho18088 - 110 mmol/L QUESTCarbon Zzthnxd4871 - 32 mmol/LQUESTCalcium6.6(L)8.6 - 10.4 mg/dLQUEST PROTEIN, TOTAL6.0(L)6.1 - 8.1 g/dLQUESTALBUMIN3.73.6 - 5.1 g/dLQUESTGLOBULIN2.3 1.9 - 3.7 g/dL (calc)QUESTALBUMIN/GLOBULIN RATIO1.61.0 - 2.5 (calc)QUEST BILIRUBIN, TOTAL0.70.2 - 1.2 mg/dLQUESTALKALINE TEJTHCSQBYS07(L)37 - 153 U/L VFHZIAPL7023 - 35 U/AFFWLWLMZ31 - 29 U/LQUESTSpecimen (Source)Anatomical Location / LateralityCollection Method / VolumeCollection TimeReceived TimeBlood Venous blood specimen / Hwuwtfi3106/27/2025 3:03 PM EDT1 3:04 PM EDT Narrative Resulting Agency Comment Performing Organization Information ?Site ID: [id number] ?Name: [facility] ?Address: [address] [place] [address], [address] [place] [id number] ?Director: Figueroa Jacques MD Authorizing ProviderResult TypeResult Status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 [facility] BLOOD ORDERABLESFinal ResultPerforming OrganizationAddressCity/State/ZIP CodePhone Number [facility] * (ABNORMAL) TSH W/REFLEX T4 (06/09/2025 12:41 PM EDT)ComponentValueRef Range Test MethodAnalysis TimePerformed AtPathologist SignatureTSH4.130(H)0.358 - 3.740 uIU/mLTBHSpecimen (Source)Anatomical Location / LateralityCollection Method / VolumeCollection TimeReceived Time06/09/2025 12:41 PM EDT06/09/2025 12:42 PM EDT Narrative CLINISYNC - 06/09/2025 1:32 PM EDT Authorizing ProviderResult TypeResult StatusJack Vogt [facility] BLOOD ORDERABLESFinal ResultPerforming OrganizationAddressCity/State/ZIP CodePhone Number CLINISYNC [facility] * (ABNORMAL) [facility] CMP (CMP) (FOR REMOTE [facility] USE) (06/09/2025 12:41 PM EDT) ComponentValueRef RangeTest MethodAnalysis TimePerformed AtPathologist [id number] - 145 mmol/LTBHPOTASSIUM3.0(L)3.5 - 5.1 mmol/LTBH BZYXDZRJ76978 - 107 mmol/LTBHCARBON MQDUTQL71.521.0 - 32.0 mmol/LTBHANION GAP 14.6JAIECIIADA6051 - 106 mg/dLTBHBLOOD UREA LWFLOWEG65.0(H)7.0 - 18.0 mg/dLTBH CREATININE3.80(H)0.55 - 1.02 mg/dLTBHTBH EGFR-AF XIOWIBRE08(L)>=60 mL/min/1.73m 2TBHTBH EGFR-NON AF IDHLBYGX70(L)>=60 mL/min/1.73m 2TBHBUN CREATININE RATIO16.3TDDJRFFOIE3.8(L)8.5 - 10.1 mg/dLTBHBILIRUBIN TOTAL0.80.2 - 1.0 mg/dLTBHASPARTATE AMINO HZVMGTHGZWW1866 - 37 U/LTBHALANINE ZYRAAAOAWNZIBCSO79(L)14 - 59 U/LTBHALKALINE DBFXAZCYXZU75(L)46 - 116 U/LTBH TOTAL PROTEIN7.26.4 - 8.2 g/dLTBHALBUMIN LEVEL3.43.4 - 5.0 g/dLTBHGLOBULIN3.8 g/dLTBHALBUMIN GLOBULIN RATIO0.9TBHSpecimen (Source)Anatomical Location / LateralityCollection Method / VolumeCollection TimeReceived Time06/09/2025 12:41 PM EDT06/09/2025 12:42 PM EDT Narrative CLINISYNC - 06/09/2025 1:32 PM EDT Authorizing ProviderResult TypeResult StatusDaeldon Vogt MDCLINISYNCFinal ResultPerforming OrganizationAddressCity/State/ZIP CodePhone Number [facility] * ALL THYROXINE (T4) FREE (06/09/2025 12:41 PM EDT)ComponentValueRef RangeTest MethodAnalysis TimePerformed AtPathologist SignatureFREE T41.280.76 - 1.46 ng/dLTBHSpecimen (Source)Anatomical Location / LateralityCollection Method / VolumeCollection TimeReceived Time06/09/2025 12:41 PM EDT06/09/2025 12:42 PM EDT Narrative CLINISYNC - 06/09/2025 2:01 PM EDT Authorizing ProviderResult TypeResult StatusDanimaricruz Vogt [facility] [place]INISYNCFinal ResultPerforming OrganizationAddressty/State/ZIP CodePhone Number [facility] * (ABNORMAL) ALL PRO BNP (06/09/2025 12:41 PM EDT)ComponentValueRef RangeTest MethodAnalysis TimePerformed AtPathologist SignatureNT PRO B TYPE NATRIURETIC PEPT18,501.0(HH)<=1,800.0 pg/mLTBHComment:RESULTS CALLED TO CARO ALONZO MA Specimen (Source)Anatomical Location / LateralityCollection Method / Volume Collection TimeReceived Time06/09/2025 12:41 PM EDT06/09/2025 12:42 PM EDT Narrative CLINISYNC - 06/09/2025 1:32 PM EDT Authorizing ProviderResult TypeResult StatusDanimaricruz Vogt MDCLINISYNCFinal ResultPerforming OrganizationAddressCity/State/ZIP CodePhone Number [facility] * (ABNORMAL) ALL CBC WITH AUTO DIFF (06/09/2025 12:41 PM EDT)ComponentValueRef RangeTest MethodAnalysis TimePerformed AtPathologist SignatureTBH WBC2.9(L)4.0 - 11.0 10 3/uLTBHTBH RBC3.39(L)4.20 - 5.40 10 6/uLTBHTBH HGB9.7(L)12.0 - 16.0 g/dLTBHTBH HCT29.3(L)36.0 - 48.0 %TBHTBH MCV86.481.0 - 99.0 fLTBHTBH MCH28.6 26.7 - 34.0 pgTBHTBH MCHC33.129.9 - 35.2 g/dLTBHTBH RDW16.3(H)11.0 - 15.0 %TBH TBH LMT558967 - 450 10 3/uLTBHTBH MPV11.19.5 - 13.5 [...] 06/09/2025 1:57 PM EDT Authorizing ProviderResult TypeResult StatusJack Vogt MDCLINISYNCFinal ResultPerforming OrganizationAddressCity/State/ZIP CodePhone Number [facility] * POCT Glycated hemoglobin, total (12/12/2024 12:07 PM EDT)ComponentValueRef RangeTest MethodAnalysis TimePerformed AtPathologist SignatureHemoglobin A1C 5.0Specimen (Source)Anatomical Location / LateralityCollection Method / Volume Collection TimeReceived FgocHscmk94/27/2025 12:07 PM EDT Narrative Authorizing ProviderResult TypeResult Eliu Vogt MDPOINT OF CARE TEST ENTER/EDIT ORDERABLESFinal Result * MAMMOGRAM* (02/05/2024 1:10 PM EDT)Anatomical RegionLateralityModality Radiographic Imaging Narrative Authorizing ProviderResult TypeResult StatusNoms Provider Unallocated MDIMG XR PROCEDURESFinal Result * (ABNORMAL) Microalbumin / creatinine urine ratio (12/13/2023 11:50 AM EDT) ComponentValueRef RangeTest MethodAnalysis TimePerformed AtPathologist SignatureCREATININE, RANDOM UTPTO3835 - 275 mg/dLQUESTALBUMIN, URINE36.2See Note: mg/dLQUESTComment: Reference Range: Reference Range Not established Results verified by repeat analysis on dilution. ALBUMIN/CREATININE RATIO, RANDOM GOEUE039(H)<30 mg/g creatQUESTComment: The ADA defines abnormalities in [...] specimen obtained by clean catch procedure / Omxpsqj7212/13/2023 11:50 AM EDT12/13/2023 11:50 AM EDT Narrative [facility] - 12/14/2023 1:50 PM EDT FASTING:NO FASTING: NO Resulting Agency Comment Performing Organization Information ?Site ID: [id number] ?Name: [facility] ?Address: [address] [place] [address], [address] [place] [id number] ?Director: Figueroa Jacques MD Authorizing ProviderResult TypeResult StatusJack Vogt MDLAB URINE ORDERABLESFinal ResultPerforming OrganizationAddressCity/State/[facility] CodePhone Number [facility] * Color Fundus Photography - OU - Both Eyes (11/18/2022 12:00 PM EST)Anatomical RegionLateralityModalityHeadFundus PhotographySpecimen (Source)Anatomical Location / LateralityCollection Method / VolumeCollection TimeReceived Time 11/18/2022 12:00 PM EST Narrative 11/18/2022 12:00 PM EST PERFORMED AT [facility] LOCATION:[id number] [facility] Procedure Note CONVERSION, GENERIC - 02/02/2023 PERFORMED AT [facility] LOCATION:[id number] [facility] Authorizing ProviderResult TypeResult StatusJack Vogt MDOPHTH PHOTOGRAPHY Final Result * Colonoscopy (03/17/2021 12:00 PM EDT)Anatomical RegionLateralityModality EndoscopySpecimen (Source)Anatomical Location / LateralityCollection Method / VolumeCollection TimeReceived Time03/17/2021 12:00 PM EDT Narrative 03/17/2021 12:00 PM EDT PERFORMED AT [facility] LOCATION:[id number] polyp- Procedure Note CONVERSION, GENERIC - 02/01/2023 PERFORMED AT [facility] LOCATION:[id number] polyp- Authorizing ProviderResult TypeResult StatusJack Vogt MDENDOSCOPY PROCEDURE ORDERABLESFinal Result from Last 3 Months or Most Recently Relevant to Health Maintenance Additional Health Concerns Active ProblemsNoted DateDiagnosed DatePatient on antidepressant monitoring plan 02/25/2025 Insurance Care Teams Team MemberRelationshipSpecialtyStart DateEnd Date Jack Vogt MD [address] [facility] [address] [place] [address] PCP - GeneralInternal Medicine01/24/23 Chantelle Recio, HIEU [address] [place] [address] Social WorkerFamily Medicine06/10/25 Valerie Go, DEBORA [address] [facility] [address] [place] [address] Registered NurseFamily Infstujo00/13/25
--- OUTSIDE RECORDS SUMMARY | 2025-07-22 18:00 | XMS_ITS | Encounter Summary ---
Author Organization [facility] Address [address] [place] [address] Care Team Providers Care Maintenance Engineer [employer] Name Role Phone Jack Vogt MD Primary Care Provider [phone] Chantelle Recio APPLICATIONS PROGRAMMER Unavailable [phone] Valerie Go RN Unavailable [phone] Encounter Details DateTypeDepartmentCare Team (Latest Contact Info)Mbkhqyqlvga41/27/2025bstract [facility] [address] [facility] [address] [place] [address] Jack Vogt MD [address] [facility] [address] [place], [place] [id number] Social History Tobacco UseTypesPacks/DayYears UsedDateSmoking Tobacco: FormerCigarettes Smokeless Tobacco: NeverAlcohol UseStandard Drinks/WeekCommentsDefer0 (1 standard drink = 0.6 oz pure alcohol)caffeine yes type:coffeePHQ-2AnswerDate RecordedPatient Health Questionnaire-2 Svitg415CommentsUnknown Sex and Gender InformationValueDate RecordedSex Assigned at BirthNot on file Legal UmdRrdvqr89/15/2023 6:57 PM EDTGender IdentityNot on fileSexual OrientationNot [...] MemberRelationshipSpecialtyStart DateEnd Date Jack Vogt MD [address] [facility] [address] [place] [address] PCP - GeneralInternal Medicine01/24/23 Chantelle Recio, HIEU [address] [place] [address] Social WorkerFamily Medicine06/10/25 Valerie Go, DEBORA [address] [facility] [address] [place] [address] Registered NurseFamily Bmqoverm06/13/25documented as of this encounter
--- OUTSIDE RECORDS SUMMARY | 2025-07-22 18:01 | XMS_ITS | CCD ---
Author Organization [facility] Care Team Providers Care Senior Product Development Engineer Name Role Phone DESIRAE, SHAKA H. Unavailable Unavailable JACK VOGT Unavailable Unavailable DESIRAE, SHAKA H. Unavailable Unavailable DESIRAE, SHAKA H. Unavailable Unavailable JACK VOGT Unavailable Unavailable DESIRAE, SHAKA H. Unavailable Unavailable DESIRAE, SHAKA H. Unavailable Unavailable JACK VOGT Unavailable Unavailable THOMAS Vogt Primary Care Provider [phone] THOMAS Vogt Referring Provider Self, Referral Attending [...] Provider MD Kevin Hamilton II Attending Provider Self, Referral Attending Provider Unavailable Sin BEAULIEU, Jack Boudreaux Primary Care Provider [phone] Maria Luisa Thomson Attending Unavailable CARDENAS, Alfredo [...] Care Provider Sukumar BEAULIEU, Elsy Attending Provider [phone] [place] TELLO, Sohail Willson Emergency Provider Rajiv Trejo MD Admit Provider Rajiv Trejo MD Attending Provider Nick Antonio MD Other Provider [phone] Kana Vazquez MD Other Provider Judy Espinosa MD Other Provider Estrella Velásquez MD Other Provider Andrew Arrington MD Attending Provider Andrew Arrington MD Other Provider Estefania Yoder APRN Other Provider [phone] Keith Koehler DO Other Provider Pilo Harry MD Other Provider [phone] Tony Monterroso Attending Unavailable Rajiv Trejo Admitting [...] Chantelle Shah Unavailable Donavan CAZARES, Valerie Unavailable Jack Vogt II Primary Care Provider Sukumar BEAULIEU, Elsy Attending Provider Allergies Allergy ClassificationReported Allergen(s)Allergy TypeDate of OnsetReaction(s) FacilityIodine (and Iodine containting drugs) (2 sources)Iodine; Translations: [Iodine]Drug Knwbmeu74-31-9085Iahflrxv of skin (disorder)[facility] (1 source)Pneumococcal vaccineDrug Mcxikrc96-45-2144KavyeEvxxnrhqxMercy Health St[facility] Rita's Medical Centerhellfish (1 source)Shellfish; Translations: [shellfish]Food AllergyUnknown (qualifier value)[facility] (1 source)vareniclineDrug Kszallq57-73-4767UamepxaoIakmiavym [facility] (20 sources)Iodine; Translations: [Iodine]Drug Yxghkfr80-88-5141Ayibjopq of skin (disorder)[facility] (6 sources)Pneumococcal vaccine; Translations: [pneumococcal vaccine]Drug Pqyuoxi88-14-5093BraqgVrlqjkaeqMer[facility] (20 sources)varenicline; Translations: [VARENICLINE]Drug Ctggdkc85-32-2803 [facility] (7 sources)Frjzsoc-CJD-EnK Reductase Inhibitor; Translations: [Idpaojk-DZM-XxE Reductase Inhibitor]Allergy to umdlaalrs60-64-7901Zlpgutf [facility] (20 sources)HMG-CoA reductase inhibitor; Translations: [statins]Drug allergy 80-39-3541Lyhtoan (qualifier value), UnknownExec[facility] (6 sources)Shellfish; Translations: [shellfish]Drug allergyUnknown (qualifier value)[facility] (2 sources)black walnut pollen extract; Translations: [HWTQMGM-WYW-ZHG REDUCTASE INHIBITORS]Drug Jldwmce39-52-9791[facility] (1 source)vareniclineDrug Sfqgupp05-31-3034CbpToledo Hospital Repository (1 source)Pneumovax 23Drug allergy (disorder)84-02-8519YluToledo [facility] (20 sources)atorvastatinDrug Dthdnle20-24-2867[facility] (20 sources)LovastatinAllergy to lacbgqsns02-52-3040S[facility] (20 sources)PravastatinDrug Ilwhabz10-51-8343YT[facility] (20 sources)SimvastatinAllergy to lmfdljhoh61-45-2384YLBJ [facility] (20 sources)Pneumococcal Vac PolyvalentDrug Zrokyeb52-53-8764[facility] (20 sources)nickel sulfate; Translations: [NICKEL]Drug Hlsjxqs09-17-8573 [facility] (20 sources)ShellfishPropensity to adverse rxdicogjp28-05-0655ItlmubghstkVIRF Healthcare (20 sources)OtherAllergy to -09-8921[facility] (1 source)Contrast media; Translations: [RED DYE]Propensity to adverse reactions to drug (disorder)25-04-7902SlfddcyyzqWilson [facility] (1 source)Pneumococcal vaccine; Translations: [PNEUMOCOCCAL 23-CRUZ PS VACCINE] Drug Renaxmz05-84-0737RknructfryWilson Memorial Hospital Repository (1 source)Shellfish; Translations: [SHELLFISH DERIVED]Propensity to adverse reactions to drug (disorder)78-92-3345YzchejxmlnWilson Memorial Hospital Repository Medications Current Medications MedicationDrug Class(es)DatesSig (Normalized)Sig (Original)acetaminophen 325 mg / HYDROcodone bitartrate 5 mg oral tablet (12 sources)Opioid AgonistStart: 12-12-2024 End: 35-67-6870yklb 1 tablet by mouth every six hours for painHYDROcodone- acetaminophen ([place]) 5-325 MG tablet Indications: Spinal stenosis, lumbar region with neurogenic claudication Take 1 tablet by mouth every 6 (six) hours if needed for severe pain 60 tablet 12/12/2024 01/11/2025 ActiveStart: 31-49-6087fapcwxhftttmt-hydrocodone 325 mg-5 mg oral tablet Refill(s) 0 Start Date: 09/26/22 Status: OrderedStart: 03-24-2021 End: 39-69-7907rtos 1 tablet by mouth every six hours as needed for pain Hydrocodone-Acetaminophen 5-325 mg tablet Discontinued 1 TAB PO Q6H as needed for Pain March 24, 2021 12:00am March 27, 2021 11:36amalendronic acid 70 mg oral tablet (1 source)BisphosphonateStart: 19-32-9373dexwfaqmeet 70 mg Tab Refills(s) 0 Start Date: 09/26/22 Status: Orderedapixaban 2.5 mg oral tablet (20 sources)Factor Xa InhibitorStart: 84-60-9333khdn 1 tablet by mouth in the morningapixaban (Eliquis) 2.5 MG tablet Indications: Personal history of other venous thrombosis and embolism Take 1 tablet (2.5 mg) by mouth in the morning and 1 tablet (2.5 mg) before bedtime. 200 tablet 3 01/27/2025 ActiveStart: 82-23-9903ixnp 1 tablet by mouth twice dailyapixaban (Eliquis) 2.5 MG tablet Indications: Personal history of other venous thrombosis and embolism TAKE 1 TABLET BY MOUTH TWICE A DAY 180 tablet 1 12/27/2024 ActiveStart: 08-29-4200yple 1 tablet by mouth twice dailyapixaban (Eliquis) 2.5 MG tablet Indications: Personal history of other venous thrombosis and embolism TAKE 1 TABLET BY MOUTH TWICE A DAY 180 tablet 1 05/13/2024 ActiveStart: 60-04-5353xhkp 2.5 mg by mouth twice dailyApixaban (Eliquis) 5 mg tablet Active 2.5 MG PO Twice daily March 24, 2021 12:00am On Hold: Resume on 04/13/25. Complies with drug therapyStart: 00-52-2516tlxn 1 tablet by mouth twice dailyApixaban (Eliquis) 5 mg tablet Active 5 MG PO Twice daily March 24, 2021 12:00am On Hold: Resume on03/31/21. Complies with drug therapyaspirin 81 mg delayed release oral tablet (20 sources)Platelet Aggregation Inhibitor, Nonsteroidal Anti-inflammatory Drug Start: 28-27-7351ygta 1 mg by mouth once dailyaspirin 81 mg Oral EC Tab mg tab(s), Oral, Daily, Refills(s) 0 Start Date: 03/04/22 Status: OrderedStart: 44-97-7541zeeh 1 tablet by mouth once dailyAspirin 81 mg Tablet Active 81 MG PO Daily March 24, 2021 12:00am Complies with drug therapy End: 36-77-5909vqid 1 tablet by mouth once dailyaspirin 81 MG chewable tablet take 1 by Oral route every day Oral 02/25/2025 Discontinued (Other)bumetanide 2 mg oral tablet (1 source)Loop DiureticStart: 47-42-5079xlhl 1 tablet by mouth twice daily Bumetanide 2 mg tablet Active 2 MG PO Twice daily 60 3 July 15, 2025 12:00am Complies with drug therapybuPROPion hydrochloride 75 mg oral tablet (7 sources)AminoketoneStart: 02-25-2025 End: 79-55-3460sdva 1 tablet by mouth at bedtimebuPROPion (Wellbutrin) 75 MG tablet Indications: Depressive disorder TAKE 1 TABLET BY MOUTH IN THE MORNING AND BEFORE BEDTIME 180 tablet 1 03/20/2025 04/03/2025 Discontinued (Med list cleanup)carvedilol 25 mg oral tablet (20 sources)alpha-Adrenergic Genoveva, beta-Adrenergic BlockerStart: 03-25-2025 take 1 tablet by mouth twice dailyCarvedilol 25 mg tablet Active 25 MG PO Twice daily April 08, 2025 12:00am Complies with drug therapyStart: 02-22-2024 End: 32-41-4197cqnh 1 tablet by mouth in the morningcarvedilol (Coreg) 25 MG tablet Indications: Benign essential hypertension (CMS/HCC) TAKE 1 TABLET BY MOUTH IN THE MORNING AND 1 TABLET IN THE EVENING. TAKE WITH MEALS. 180 tablet 3 10/22/2024 02/25/2025 Discontinued (Other)Start: 76-21-5375lydlvpaedj 12.5 mg Tab Refills(s) 0 Start Date: 10/23/23 Status: OrderedcloNIDine hydrochloride 0.1 mg oral tablet (20 sources)Central alpha-2 Adrenergic AgonistStart: 03-20-2025 End: 71-52-2733jzlb 1 tablet by mouth three times dailyClonidine Hcl 0.1 mg tablet Active 0.1 MG PO Three times daily April 08, 2025 12:00am Complies with drug therapyStart: 02-22-2024 End: 90-10-5528uuvj 1 tablet by mouth in the morningcloNIDine (Catapres) 0.1 MG tablet Indications: Benign essential hypertension (CMS/HCC) Take 1 tablet (0.1 mg) by mouth in the morning and 1 tablet (0.1 mg) before bedtime. 60 tablet 11 02/22/2024 12/12/2024 Discontinueddoxazosin 2 mg oral tablet (18 sources)alpha-Adrenergic BlockerStart: 03-21-2025 End: 09-91-9259zjrn 1 tablet by mouth once dailyDoxazosin 2 mg tablet Active 2 MG PO Daily April 08, 2025 12:00am Complies with drug therapyDULoxetine 30 mg Cap-EC (5 sources)Start: 72-20-2019SUHnimijiv 30 mg Cap-EC Refills(s) 0 Start Date: 03/04/22 Status: OrderedDULoxetine 60 mg Cap-EC (5 sources)Start: 07-50-6053ADCqbztrgy 60 mg Cap-EC Refills(s) 0 Start Date: 03/04/22 Status: Orderedescitalopram 5 mg oral tablet (18 sources)Serotonin Reuptake InhibitorStart: 03-21-2025 End: 30-65-2045qhff 1 tablet by mouth once dailyEscitalopram Oxalate 5 mg tablet Active 5 MG PO Daily April 08, 2025 12:00am Complies with drug therapyezetimibe 10 mg oral tablet (20 sources)Dietary Cholesterol Absorption InhibitorStart: 31-57-2180esqh 1 tablet by mouth once dailyEzetimibe 10 mg tablet Active 10 MG PO Daily March 24, 2021 12:00am Complies with drug therapyfenofibrate 145 mg oral tablet (20 sources)Peroxisome Proliferator Receptor alpha AgonistStart: 28-59-3051rpaf 1 tablet by mouth once dailyFenofibrate Nanocrystallized 145 mg tablet Active 145 MG PO Daily March 24, 2021 12:00am Complies with drug therapyferrous sulfate 325 mg oral tablet (1 source)Start: 54-72-5851exkq 1 tablet by mouth twice dailyFerrous Sulfate 325 mg (65 mg iron) tablet Active 325 MG PO Twice daily 60 July 10, 2025 12:0 0am Complies with drug therapyfolic acid 1 mg oral tablet (1 source)Start: 14-23-6576btrh 1 tablet by mouth once dailyFolic Acid 1 mg tablet Active 1 MG PO Daily 90 1 July 10, 2025 12:00am Complies with drug therapyfurosemide 40 mg oral tablet (18 sources)Loop DiureticStart: 20-60-8988qdpt 1 tablet by mouth twice daily Furosemide 40 mg Tablet Active 40 MG PO BID@0800,1600 60 30 0 April 11, 2025 12:00am Complies withdrug therapyStart: 03-24-2021 End: 15-67-6969vzyx 1 tablet by mouth once daily as neededFurosemide 40 mg tablet Discontinued 40 MG PO Daily as needed for swelling March 24, 2021 12:00am April 08, 2025 4:13pmhydrALAZINE hydrochloride 100 mg oral tablet (20 sources)Arteriolar VasodilatorStart: 03-31-2025 End: 51-37-1817ekgf 1 tablet by mouth three times dailyHydralazine 100 mg tablet Active 100 MG PO Three times daily April 08, 2025 12:00am Complies with drug therapyStart: 02-22-2024 End: 53-89-8970ffaw 1 tablet by mouth in the morning, then take 1 tablet by mouth in the evening, then take 1 tablet by mouth at bedtimehydrALAZINE (Apresoline) 100 MG tablet Indications: Benign essential hypertension Take 1 tablet (100 mg) by mouth in the morning and 1 tablet (100 mg) in the evening and 1 tablet (100 mg) before bedtime. 90 tablet 11 02/22/2024 ActiveStart: 39-23-5059nqbxLSMBKTY 25 mg Tab Refills(s) 0 Start Date: 03/04/22 Status: Ordered 24 hr isosorbide mononitrate 30 mg extended release oral tablet (20 sources)Nitrate VasodilatorStart: 04-04-2025 End: 84-81-3697oxty 1 tablet by mouth once daily, then take 1 tablet by mouth every twenty-four hoursisosorbide mononitrate ER (Imdur) 30 MG 24 hr tablet Take 30 mg by mouth Daily 04/04/2025 04/04/2026 ActiveStart: 03-24-2021 End: 30-55-4958fdgw 1 tablet by mouth once daily, then take 1 tablet by mouth every twenty-four hoursIsosorbide Mononitrate 60 mg tablet extended release 24 hr Discontinued 60 MG PO Daily March 24, 2021 12:00am April 08, 2025 4:14pm magnesium oxide 400 mg oral tablet (2 sources)Start: 79-39-3741cgew 1 tablet by mouth twice dailyMagnesium Oxide 400 mg (241.3 mg magnesium) tablet Active 400 MG PO Twice daily July 15, 2025 4:39pm Complies with drug therapyStart: 07-15-2025 End: 96-04-0575sukz 1 tablet by mouth once dailyMagnesium Oxide 400 mg (241.3 mg magnesium) tablet Discontinued 400 MG PO Daily July 15, 2025 12:00am July 15, 2025 4:39pmmelatonin 3 mg oral tablet (9 sources)Start: 03-20-2025 End: 33-24-8776sowf 2 tablets by mouth once daily at bedtimeMelatonin 3 mg tablet Active 6 MG PO Daily at bedtime April 08, 2025 12:00am Complies with drug therapyMetoprolol (12 sources)beta-Adrenergic BlockerStart: 56-49-5727Rmvozgkjsh tartrate 50 mg Tab Refills(s) 0 Start Date: 03/04/22 Status: OrderedStart: 03-24-2021 End: 10-94-5414yjly 1 tablet by mouth twice dailyMetoprolol Tartrate 50 mg tablet Discontinued 50 MG PO Twice daily March 24, 2021 12:00am April 08, 2025 4:14pmminoxidil 2.5 mg oral tablet (2 sources)Arteriolar VasodilatorStart: 93-44-7470jkak 1 tablet by mouth twice dailyMinoxidil 2.5 mg Tablet Active 2.5 MG PO Twice daily 0 0 April 11, 2025 12:00am Complies with hentntiyhuk83 hr mirabegron 50 mg extended release oral tablet (1 source)beta3-Adrenergic AgonistStart: 76-20-5178zznt 1 tablet by mouth once dailymirabegron 50 mg oral tablet, extended release 50 mg = 1 tab(s), Oral, Daily, # 30 tab(s), Refills(s) 11, Pharmacy: [facility]/pharmacy #[id number], 163, cm, 11/18/24 13:38:00 EST, Height/Length Dosing, 74.1, kg,11/18/24 13:38:00 EST, Weight Dosing Start Date: 11/18/24 Status: OrderedNIFEdipine 90 mg osmotic 24 hr extended release oral tablet (20 sources)Dihydropyridine Calcium Channel BlockerStart: 33-77-4640whxh 1 tablet by mouth twice dailyNifedipine 90 mg tablet extended release 24hr Active 90 MG PO Twice daily April 08, 2025 4:18pm Complies with drug therapyStart: 71-08-6832ylcf 1 tablet by mouth every twenty-four hours in the morning NIFEdipine XL (Procardia XL) 90 MG 24 hr tablet Indications: 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 Take 1 tablet (90 mg) by mouth in the morning and 1 tablet (90 mg) before bedtime. 180 tablet 3 03/31/2025 ActiveStart: 75-21-5606lrer 1 tablet by mouth every twenty-four hours in the morningNIFEdipine XL (Procardia XL) 90 MG 24 hr tablet Take 90 mg by mouth in the morning and 90 mg beforebedtime. 03/20/2025 ActiveStart: 36-24-2656BPTEibxgjm (Eqv-Procardia XL) 90 mg oral tablet, extended release Refills(s) 0 Start Date: 03/04/22 Status: OrderedStart: 03-24-2021 End: 11-11-5148qhmz 1 tablet by mouth once dailyNifedipine 90 mg tablet extended release 24hr Discontinued 90 MG PO Daily March 24, 2021 12:00am April 08, 2025 4:19pmnitroglycerin 0.4 mg sublingual tablet (20 sources)Nitrate VasodilatorStart: 03-20-2024 End: 29-37-3183gwbtolhtyibza (Nitrostat) 0.4 MG SL tablet Indications: 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 Place 1 tablet (0.4 mg) under the tongue every 5 (five) minutes if needed for chest pain 90 tablet 12 03/20/2024 ActiveStart: 03-04-2022 nitroglycerin 0.4 mg SubL [place] mg spray(s), SubLingual, q5min, Refills(s) 0 Start Date: 03/04/22 Status: Slcnafm27 hr oxybutynin chloride 10 mg extended release oral tablet (9 sources)Cholinergic Muscarinic AntagonistStart: 10-23-2023 End: 90-56-0190xpzi 1 tablet by mouth once dailyoxybutynin 10 mg ER Tab 10 mg = 1 tab(s), Oral, Daily, # 90 tab(s), Refills(s) 3, Pharmacy: [facility]/pharmacy #[id number], 163, cm, 10/23/23 12:33:00 EST, Height/Length Dosing, 81.5, kg, 10/23/23 12:33:00 EST, Weight Dosing Start Date: 10/23/23 Status: Orderedpantoprazole 40 mg delayed release oral tablet (20 sources)Proton Pump InhibitorStart: 37-11-8725Qainjxianyug 40 mg tablet,delayed release (DR/EC) Active 40 MG PO Twice daily 0 28 0 April 11, 2025 11:56am BID x 4 weeks then daily thereafter Complies with drug therapy Start: 03-24-2021 End: 38-75-3763ufxv 1 tablet by mouth once dailyPantoprazole 40 mg tablet,delayed release (DR/EC) Discontinued 40 MG PO Daily March 24, 2021 12:00am April 11, 2025 11:57ampotassium chloride 20 meq extended release oral tablet (3 sources)Start: 85-30-7010onrp 1 tablet by mouth once dailyPotassium Chloride 20 mEq tablet extended release Active 20 MEQ PO Daily 90 1 July 10, 2025 12:00am Complies with drug therapyStart: 06-09-2025 End: 41-83-1876pajm 1 tablet by mouth in the morningpotassium chloride CR (Klor- Con M10) 10 MEQ ER tablet Indications: Hypokalemia Take 1 tablet (10 mEq) by mouth in the morning and 1 tablet (10 mEq) before bedtime. Do all this for 7 days. Do not crush or chew. 14 tablet 06/09/2025 06/16/2025 Activesennosides, mcfp 8.6 mg oral tablet (9 sources)Start: 03-20-2025 End: 04-13-6708qxde 1 tablet by mouth once daily at bedtimeSennosides (Senna) 8.6 mg tablet Active 8.6 MG PO Daily at bedtime April 08, 2025 12:00am Complies with drug therapyspironolactone 25 mg oral tablet (1 source)Aldosterone AntagonistStart: 65-56-8652zmkk 1 tablet by mouth once dailySpironolactone (Aldactone) 25 mg tablet Active 25 MG PO Daily June 30, 2025 12:00am Complies with drug therapytraMADol hydrochloride 50 mg oral tablet (13 sources)Opioid AgonistStart: 03-24-2025 End: 42-68-9199ypvo 1 tablet by mouth every eight hours for paintraMADol (Ultram) 50 MG tablet Indications: Primary osteoarthritis of both knees Take 1 tablet (50 mg) by mouth every 8 (eight) hours if needed for severe pain 60 tablet 2 03/24/2025 Activezolpidem tartrate 10 mg oral tablet (20 sources)gamma-Aminobutyric Acid-ergic AgonistStart: 04-08-2025 End: 49-75-1843zkbf 5 mg by mouth at bedtime as neededZolpidem 10 mg tablet Active 5 MG PO Bedtime as needed for insomnia 2 4 0 April 11, 2025 11:56am In somnia Insomnia, unspecified Complies with drug therapyStart: 03-24-2025 End: 68-58-5466womdtlok (Ambien) 5 MG tablet Indications: Insomnia due to medical condition Take 1 tablet (5 mg) by mouth as needed at bedtime for sleep 30 tablet 5 03/24/2025 09/20/2025 ActiveStart: 03-24-2025 End: 46-90-9472uiswmdyn (Ambien) 10 MG tablet Indications: Insomnia due to medical condition Take 0.5 tablets (5 mg) by mouth as needed at bedtime for sleep 30 tablet 5 03/24/2025 03/24/2025 Discontinued (Reorder)Start: 03-24-2021 End: 83-99-5274ckvn 1 tablet by mouth at bedtimeZolpidem 10 mg tablet Discontinued 10 MG PO Bedtime March 24, 2021 12:00am April 08, 2025 4:19pm Completed/Discontinued Medications MedicationDrug Class(es)DatesSig (Normalized)Sig (Original)diclofenac sodium 0.01 mg/mg topical gel (9 sources)Nonsteroidal Anti-inflammatory DrugStart: 11-23-2023 End: 27-67-6495Ykafblzqtw Sodium 1 % gel Discontinued 2 GM TOPICAL as directed as needed for knee pain 2023 7:39am April 08, 2025 4:11pm Start: 79-27-0985Lrzzytzlzv Sodium Active 2 GM TOPICAL as directed 10 17November 23, 2023 1:00amDULoxetine 30 mg delayed release oral capsule (20 sources)Serotonin and Norepinephrine Reuptake InhibitorStart: 12-27-2024 End: 34-41-4800jpew 1 capsule by mouth once dailyDULoxetine (Cymbalta) [address] capsule Indications: Depressive disorder Take 1 capsule (30 mg) by mouth Daily Take with 60 mg capsule 90 capsule 4 01/02/2025 03/24/2025 DiscontinuedStart: 12-27-2024 End: 26-79-6177rsdw 1 capsule by mouth once dailyDULoxetine (Cymbalta) [address] capsule Indications: Anxiety Take 1 capsule (60 mg) by mouth Daily 90 capsule 01/02/2025 03/24/2025 DiscontinuedStart: 60-43-1335mutc 1 capsule by mouth once dailyDULoxetine (Cymbalta) [address] capsule Indications: Depressive disorder (CMS/HCC) Take 1 capsule (30 mg) by mouth Daily Take with 60 mg capsule 100 capsule 3 12/30/2023 ActiveStart: 10-30-2023 End: 84-11-3496rpjf 1 capsule by mouth once dailyDULoxetine (Cymbalta) [address] capsule Indications: Anxiety Take 1 capsule (60 mg) by mouth Daily 90 capsule 11/04/2024 ActiveStart: 38-08-7911YSGpvssssq 30 mg Cap-EC Refills(s) 0 Start Date: 03/04/22 Status: OrderedStart: 77-89-5198EGJtmervtl 60 mg Cap-EC Refills(s) 0 Start Date: 03/04/22 Status: OrderedStart: 03-24-2021 End: 36-52-4056irty 3 capsules by mouth at bedtimeDuloxetine 30 mg capsule,delayed release(DR/EC) Discontinued 90 MG PO Bedtime March 24, 2021 12:00am April 08, 2025 4:12pmStart: 83-29-8684komi 90 mg by mouth at bedtime Duloxetine Active 90 MG PO Bedtime March 24, 2021 10:33pm12 hr guaiFENesin 600 mg extended release oral tablet (6 sources)Start: 03-27-2021 End: 92-71-2287hnbo 2 tablets by mouth twice daily as needed for congestion, then take 1 tablet by mouth every twelve hours as needed for congestion Guaifenesin (Mucinex) 600 mg Tablet Extended Release 12hr Discontinued 1200 MG PO Twice daily as needed for congestion 0 0 March 27, 2021 12:00am November 23, 2023 3:26pmmeloxicam 15 mg oral tablet (20 sources)Nonsteroidal Anti-inflammatory DrugStart: 06-10-2024 End: 79-40-6809oskk 1 tablet by mouth once dailyMeloxicam 15 mg tablet Discontinued 0 .ROUTE .COMPLEX 30 2 June 10, 2024 7:33am April 08, 2025 4:14pm TAKE 1 TABLET BY MOUTH EVERY DAYStart: 11-23-2023 End: 63-61-7453qipn 1 tablet by mouth once dailyMeloxicam 15 mg tablet Discontinued 15 MG PO daily 30 30 2 March 11, 2024 7:39am June 10, 2024 7:34amondansetron 4 mg oral film (2 sources)Serotonin-3 Receptor AntagonistStart: 03-24-2021 End: 56-85-7528wroe 4 mg by mouth every eight hoursOndansetron Discontinued 4 MG PO Q8H March 24, 2021 10:38pm March 27, 2021 11:37amStart: 03-24-2021 End: 20-03-6191umsk 4 mg by mouth every eight hoursOndansetron Discontinued 4 MG PO Q8H March 24, 2021 12:00am March 27, 2021 11:37amOndansetron 4 mg Film (4 sources)Start: 03-24-2021 End: 27-18-2734ayjh 4 mg by mouth every eight hours as needed for nausea Ondansetron 4 mg Film Discontinued 4 MG PO Q8H as needed for Nausea March 24, 2021 12:00am March 27, 2021 11:37ampregabalin 75 mg oral capsule (20 sources)Start: 03-24-2021 End: 48-37-8096epwz 1 capsule by mouth twice dailyPregabalin 75 mg capsule Discontinued 75 MG PO Twice daily March 24, 2021 12:00am April 08, 2025 4:15pm tiZANidine 4 mg oral tablet (20 sources)Central alpha-2 Adrenergic AgonistStart: 03-04-2022 End: 26-05-0991mbhm 1 tablet by mouth twice daily as neededtiZANidine (Zanaflex) 4 MG tablet Indications: Radiculopathy of lumbar region TAKE 1 TABLET BY MOUTH TWICE A DAY NEEDED 180 tablet 3 05/13/2024 03/24/2025 Discontinuedvalsartan 320 mg oral tablet (20 sources)Angiotensin 2 Receptor BlockerStart: 03-24-2021 End: 60-35-1909itig 1 tablet by mouth once dailyValsartan 320 mg tablet Discontinued 320 MG PO Daily March 24, 2021 12:00am April 08, 2025 4:15pm Problems Active Problems Problem ClassificationProblemDateDocumented DateEpisodic/ChronicAcute and unspecified renal failure (17 sources)Injury of kidney; Translations: [Acute kidney failure, unspecified] Onset: [id number] myocardial infarction (6 sources)Myocardial revzponsuj04-20-5261CbretovRtdfbqewhtejoh/social admission (6 sources)Patient encounter status; Translations: [Other specified counseling] 82-54-5938GexsqtfoJxotrcr disorders (3 sources)Anxiety; Translations: [Anxiety disorder, unspecified]11-03-2024 ChronicAortic; peripheral; and visceral artery aneurysms (20 sources)Dissection of abdominal aorta; Translations: [Dissection of abdominal aorta]Onset: [id number] dysrhythmias (20 sources)Tucker rhythm disorder; Translations: [Other specified cardiac arrhythmias]Onset: [id number] kidney disease (20 sources)Chronic kidney disease stage 3B ; Translations: [Stage 3b chronic kidney disease (HCC)]Onset: [id number] kidney disease (2 sources)Chronic kidney disease; Translations: [Chronic kidney disease, stage 3b]Onset: 54-38-5384Sxcimvenhpih of device; implant or graft (20 sources)Atherosclerosis of coronary artery bypass graft(s) without angina pectoris; Translations: [Arteriosclerosis of autologous vein coronary artery bypass graft]Onset: [id number] heart failure; nonhypertensive (4 sources)Chronic diastolic heart failure; Translations: [Chronic diastolic (congestive) heart failure]08-33-7036LrqmurvNvsitfci atherosclerosis and other heart disease (20 sources)Atherosclerotic heart disease of [place] coronary artery without angina pectoris; Translations: [Coronary atherosclerosis]Onset: 02-03-2022 ChronicDeficiency and other anemia (20 sources)Anemia due to chronic blood loss; 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 Deficiency and other anemia (12 sources)Anemia; Translations: [Anemia, unspecified]78-96-3373Faxcxdkf Deficiency and other anemia (1 source)Anemia, unspecified; Translations: [Anemia, unspecified]Onset: 11-40-3160SfdjsrkeBlkcvrde mellitus without complication (2 sources)Type 2 diabetes sxpqmurg42-49-9340JhjbdtkMhdlclljq of lipid metabolism (20 sources)Hyperlipidemia; Translations: [Mixed hyperlipidemia]Onset: 443219-88-4963SleiwmlGfxvnyqxtr disorders (20 sources)Gastroesophageal reflux disease; Translations: [Gastro-esophageal reflux disease without esophagitis]Onset: 902780-38-7370AzoycdvIqhlrtzqr hypertension (20 sources)Hypertensive disorder; Translations: [Essential (primary) hypertension]Onset: 398210-71-1527DiiayitYxsup and electrolyte disorders (10 sources)Hypervolemia; Translations: [Fluid overload, unspecified]Onset: 469436-87-1867DhyanfqaQqvfjyyvbkqyxdjv hemorrhage (14 sources)Lower gastrointestinal hemorrhage; Translations: [Gastrointestinal hemorrhage, unspecified]Onset: 316176-59-7367IinvarspQkyknmjvkwmzo symptoms and ill-defined conditions (7 sources)Urge incontinence; Translations: [Urge incontinence of urine]Onset: 87-40-3691DfzgnqdReeph valve disorders (3 sources)Nonrheumatic aortic (valve) insufficiency; Translations: [NONRHEUMATIC AORTIC INSUFFICIENCY]Onset: 85-97-7157CjsptafXsszhfhqsfhf with complications and secondary hypertension (16 sources)Hypertensive renal disease; Translations: [Hypertensive chronic kidney disease with stage 1 throughstage 4 chronic kidney disease, or unspecified chronic kidney disease]Onset: 682441-46-4692YpkciuqQexwyrz and fatigue (10 sources)Asthenia; Translations: [Weakness]Onset: EpisodicMenopausal disorders (20 sources)Other primary ovarian failure; Translations: [Decreased estrogen level]Onset: 06-01-7989SpiafeeOezq disorders (20 sources)Depressive disorder; Translations: [Depressive disorder]Onset: 117677-29-4872XmdgudeDxjdtfcylntp breast conditions (20 sources)Fibrocystic disease of breast; Translations: [Diffuse cystic mastopathy of unspecified breast]Onset: 851419-52-3166EqjavkyIbxahmyfwrt deficiencies (4 sources)Folic acid deficiency; Translations: [Deficiency of other specified B group vitamins]33-09-7433WbluvzirRmmixvxfj or stenosis of precerebral arteries (20 sources)Occlusion and stenosis of bilateral carotid arteries; Translations: [Carotid artery occlusion]Onset: 269720-68-7589HfrxqjzXmmpwdydtcwfon (20 sources)Primary gonarthrosis, bilateral; Translations: [Bilateral primary osteoarthritis of knee]Onset: 043527-62-5303SvwfbtpIxbsmbvjxlcs (20 sources)Osteoporosis; Translations: [Age-related osteoporosis without current pathological fracture]Onset: 291515-69-6829PanlyzpDjqsp acquired deformities (2 sources)Spondylolisthesis, lumbar region; Translations: [Spondylolisthesis, lumbar region]Onset: 98-61-1545TybbqobxHgbop acquired deformities (1 source)Spondylolisthesis, lumbosacral region; Translations: [Spondylolisthesis, lumbosacral region]Onset: 61-48-8822NxpsmpxjOkwme aftercare (4 sources)Long-term current use of anticoagulant; Translations: [long term care administrator (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]Onset: 91-18-1467NrjwcmenWfusu and ill-defined heart disease (6 sources)Heart qamiaqg29-36-2201FmoqjbiOhlyd circulatory disease (20 sources)Stricture of artery; Translations: [Stricture of artery]Onset: 811735-22-3554SixgbzyDsaqd diseases of kidney and ureters (6 sources)Disorder of kidney and/or ureter; Translations: [Disorder of kidney and ureter, unspecified]Onset: 75-16-8918KuylhlbsNwxmp diseases of veins and lymphatics (16 sources)Lymphedema; Translations: [Lymphedema, not elsewhere classified] Onset: 578703-62-1809LgtpehfUqguf diseases of veins and lymphatics (1 source)Lymphedema, not elsewhere classified; Translations: [Other lymphedema] 87-95-7093RrahwqjOfzwi endocrine disorders (2 sources)Hyperparathyroidism; Translations: [Hyperparathyroidism, unspecified] 12-07-5280GqwrtjhJkkhe gastrointestinal disorders (20 sources)Irritable bowel syndrome; Translations: [Irritable bowel syndrome without diarrhea]Onset: 035648-77-6353YaditjnZrvdc gastrointestinal disorders (2 sources)Constipation, unspecified; Translations: [Constipation, unspecified] Onset: 79-90-7484FvnvtyciVjpat gastrointestinal disorders (2 sources)Functional diarrhea; Translations: [Functional diarrhea]06-09-2025 EpisodicOther lower respiratory disease (4 sources)Fibrosis of lung; Translations: [Pulmonary fibrosis, unspecified] 89-45-5857FgvktwdDvxtc non-traumatic joint disorders (5 sources)Pain in left knee; Translations: [Left knee pain]25-17-9365Dkqasqon Other nutritional; endocrine; and metabolic disorders (20 sources)Obese class I; Translations: [Obesity (BMI 30.0-34.9)]Onset: 204949-18-4612IgygpzaChqwa nutritional; endocrine; and metabolic disorders (2 sources)Hypomagnesemia; Translations: [Hypomagnesemia]42-15-7111PjlxmdxBkyai nutritional; endocrine; and metabolic disorders (2 sources)Hypocalcemia; Translations: [Hypocalcemia]40-77-2334BwjvixgJqxuy nutritional; endocrine; and metabolic disorders (2 sources)Weight decreased; Translations: [Abnormal weight loss]02-25-2025 EpisodicOther skin disorders (2 sources)Loss of hair; Translations: [Nonscarring hair loss, unspecified] 77-38-5671ImvdftktBphkfblpnc and visceral atherosclerosis (20 sources)Peripheral vascular disease, unspecified; Translations: [Peripheral vascular disease, unspecified]Onset: 618666-28-3407LumnbcgLrhlazga codes; unclassified (20 sources)Insomnia co-occurrent and due to medical condition; Translations: [Insomnia due to medical condition]Onset: 471908-50-5830GyapavyNwcbgmjj codes; unclassified (3 sources)Localized edema; Translations: [LOCALIZED EDEMA]Onset: 02-03-2022 EpisodicResidual codes; unclassified (5 sources)Poor oral hygiene; Translations: [Other specified personal risk factors, not elsewhere classified]83-55-0235EdxsvzxcDncihozu codes; unclassified (1 source)Tobacco use; Translations: [Tobacco use disorder]89-06-4115Nxriywkg Residual codes; unclassified (1 source)Other specified personal risk factors, not elsewhere classified; Translations: [Other specified disorders of the teeth and supporting structures] 25-39-2080AippdlxxRmvuqfnh codes; unclassified (3 sources)Insomnia, unspecified; Translations: [Insomnia, unspecified]Onset: 99-70-9095UtfiollqUriiopkbrlk; intervertebral disc disorders; other back problems (20 sources)Lumbar spondylosis; Translations: [Spondylosis without myelopathy or radiculopathy, lumbar region]Onset: 806089-85-5509JkvhmtrFninsnspsjd; intervertebral disc disorders; other back problems (2 sources)Spondylosis; intervertebral disc disorders; other back problems; Translations: [L5-S1 RADICULOPATHY, SPONDYLOSIS]Onset: 42-48-4901Vrefqyqls- related disorders (20 sources)Tobacco dependence syndrome; Translations: [Nicotine dependence, unspecified, uncomplicated]Onset: 412937-97-7436EzsycwpPauohuo disorders (20 sources)Thyroid nodule; Translations: [Nontoxic single thyroid nodule]Onset: 849970-62-5652CrgobklLchsocqbjwws (5 sources)Drug therapy kkqylxw34-23-7155Cxzpwsuwwcic (16 sources)Patient on antidepressant monitoring planOnset: Unclassified (2 sources)Follow-up with GI if needed. The office will follow-up pathology for H. pylori.Unclassified (1 source)Follow-up with Nephrology as previously scheduled. Recommend closer follow-up, please call office on Monday to see if can get a closer appointment. Past or Other Problems Problem ClassificationProblemDateDocumented DateEpisodic/ChronicAbdominal pain (20 sources)Generalized abdominal pain; Translations: [Generalized abdominal pain]Onset: 05-05-2023 Resolved: 879351-04-5655XswrmrypNpiarxxe foot deformities (20 sources)Left foot drop; Translations: [Foot drop, left foot]Onset: 899247-13-5480OhxrftmwJotuluou reactions (20 sources)Allergy to seafood; Translations: [Allergy to seafood]Onset: 169285-22-2846DlacouxqQbru; stupor; and brain damage (20 sources)Daytime somnolence; Translations: [Somnolence]Onset: 05-05-2023 08-92-8326DebxvndwApilyujy atherosclerosis and other heart disease (20 sources)Patient post percutaneous transluminal coronary angioplasty; Translations: [Coronary angioplasty status]Onset: 546687-20-5794Xaxmdnwu Diabetes mellitus with complications (20 sources)Renal disorder due to type 2 diabetes mellitus; Translations: [Type 2 diabetes mellitus with other diabetic kidney complication]Onset: 10-24-2019 Resolved: 254371-35-4979SpiswxhNvushiaszzhhh symptoms and ill-defined conditions (20 sources)Proteinuria; Translations: [Proteinuria, unspecified]Onset: 669489-87-8830TzmqiyqhEciq disorders (16 sources)Mood disordersOnset: Nausea and vomiting (20 sources)Nausea and vomiting; Translations: [Nausea with vomiting, unspecified]Onset: 109875-97-7524GinxrooaPatrwdqxvio chest pain (20 sources)Chest pain; Translations: [Chest pain, unspecified]Onset: 05-23-2018 92-79-8284RojgfrqqBamym acquired deformities (20 sources)Lumbar spondylolisthesis; Translations: [Spondylolisthesis, lumbar region]Onset: 739245-96-1703XohszqigTrdys aftercare (1 source)longterm (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; Translations: [DREDGE MATE CURRNT USE ANTICOAGULANTS]Onset: 73-23-9624MumoaqvpOxbkj aftercare (20 sources)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; Translations: [longterm (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]Onset: 678674-37-0235IksjvdfzNcsuy connective tissue disease (3 sources)Pain in leg, unspecified; Translations: [PAIN IN LEG UNSPECIFIED] Onset: 06-71-5183MehtyddkYioff connective tissue disease (1 source)Pain in left leg; Translations: [PAIN IN LEFT LEG]Onset: 02-25-2022 EpisodicOther connective tissue disease (1 source)Pain in right leg; Translations: [PAIN IN RIGHT LEG]Onset: 02-25-2022 EpisodicOther connective tissue disease (20 sources)Fibromyalgia; Translations: [Fibromyalgia]Onset: 05-05-2023 75-98-3822FitufwzvQbngu connective tissue disease (20 sources)Muscle pain; Translations: [Myalgia, unspecified site]Onset: 358121-41-9796MgufkzymErvaw connective tissue disease (20 sources)Fibromyositis; Translations: [Fibromyalgia]Onset: 05-23-2018 84-49-6869VxrohwhrYqqtc connective tissue disease (20 sources)Neurogenic claudication; Translations: [Other symptoms and signs involving the nervous system]Onset: 791369-89-8706FwcxcbpdBzlsm connective tissue disease (1 source)Fibromyalgia; Translations: [Fibromyalgia]Onset: 60-27-6856Qjfyknus Other diseases of kidney and ureters (20 sources)Kidney lesion; Translations: [Disorder of kidney and ureter, unspecified]Onset: 622448-74-4616MoumfdzrMkbhc diseases of kidney and ureters (4 sources)Disorder of kidney and ureter, unspecified; Translations: [DISORDER KIDNEY AND URETER UNS]Onset: 49-35-7557McdtfwuqMzjea diseases of veins and lymphatics (20 sources)Peripheral venous insufficiency; Translations: [Venous insufficiency (chronic) (peripheral)]Onset: 895102-50-4469CwtoexsnBozjx lower respiratory disease (5 sources)Shortness of breath; Translations: [SHORTNESS OF BREATH]Onset: 37-85-7962OoqztbydPpodc screening for suspected conditions (not mental disorders or infectious disease) (20 sources)Cardiovascular stress test abnormal; Translations: [Abnormal result of other cardiovascular function study]Onset: 546351-94-6374JamnjyipUlbab upper respiratory infections (20 sources)Sinusitis; Translations: [Chronic sinusitis, unspecified]Onset: 04-30-2020 Resolved: 009680-66-2265FhzsnnpVcpkckypw; thrombophlebitis and thromboembolism (20 sources)History of thromboembolism of vein; Translations: [Personal history of other venous thrombosis and embolism]Onset: 064708-03-1641Wsrmrrom Pulmonary heart disease (20 sources)Personal history of pulmonary embolism; Translations: [Infarction of lung due to embolus]Onset: 797218-72-5948NyohvqouYfutkiqf codes; unclassified (20 sources)Nicotine user; Translations: [Tobacco use]Onset: 02-27-2019 92-43-6740VdcjkxtvKpykgeru codes; unclassified (20 sources)Other specified health status; Translations: [Other drug allergy] Onset: 567356-70-8348CjoyjuojEyakicvm codes; unclassified (20 sources)Localized edema; Translations: [Localized edema]Onset: 10-04-2023 85-88-5671HnjvojtnSdivtsdnrvn; intervertebral disc disorders; other back problems (20 sources)Spinal stenosis of lumbar region; Translations: [Spinal stenosis, lumbar region with neurogenic claudication]Onset: 479667-80-6238Aitcytmt Results Test NameValueInterpretationReference RangeFacilityLaboratory - Chemistry and Chemistry - challengeOrdered By: Elsy Patino on 28-07-6233Xejuetdtb Ql (U) NegativeNEGSelect Medical Cleveland Clinic Rehabilitation Hospital, AvonGlucose (U) [Mass/Vol]Negative NEGATIVETuscarawas HospitalKetones Ql (U)NegativeNEGSelect Medical Cleveland Clinic Rehabilitation Hospital, AvonpH (U)5.5 [pH]5.0-9.0[facility] Specific gravity (U) [Rel density]1.0201.005-1.025T[facility]carawas HospitalUrobilinogen Qn (U)0.2 {Dago'U}/dL0.2-1.0[facility] HospitalLaboratory - Specimen informationOrdered By: Elsy Patino on 07-11-2025 Appearance (U)CLEARCLERegency Hospital CompanyColor (U)YELLOWSt. Mary's Medical Center, Ironton CampusLaboratory - UrinalysisOrdered By: Elsy Patino on 71-20-8845Pgzmnaz casts LM Ql (Urine sed)RARETuscarawas HospitalLeukocyte esterase Test strip Ql (U)NegativeNEGSelect Medical Cleveland Clinic Rehabilitation Hospital, AvonMucus Ql (Urine sed)NONE SEENNONE Wilson HealthNitrite Ql (U)NegativeNEGSelect Medical Cleveland Clinic Rehabilitation Hospital, AvonProtein (U) [Mass/Vol]242.1 mg/dLHigh<=11.9T[facility] HospitalProtein Ql (U) >=300 mg/dLAbnormalNEG/TRACETuscarawas HospitalNo Panel InformationOrdered By: Elsy Patino on 72-59-0168Ddbrt BacteriaTRACE #/HPF AbnormalNONE Wilson HealthUrine Occult BloodNegative NEGATIVETuscarawas HospitalUrine Other CastsSEEN #/LPFAbnormalNONE SEENTuscarawas HospitalUrine Other CrystalsNone Seen #/HPFNone [facility] HospitalUrine Random Dmrrqwnmbp96.33 mg/dL 20.00-300.00T[facility]carawas HospitalUrine RBC0-2 #/HPF0-2FDiley Ridge Medical CenterUrine Squamous Epithelial CellsRARE #/LPFNONE/RARE [facility] HospitalUrine WBC0-2 #/HPFAbnormalNONE Wilson HealthTBH URINE T PROTEIN CREAT RATIOon 85-04-2316HROBYEIBLI URINE NIUSSA38.33 mg/dL20.00 - 300.00 mg/dLNOSC HealthcareInterpretation and review of laboratory resultsAbnormalNOMS HealthcareProtein (U) [Mass/Vol]242.1 mg/dLHighNINF - 11.9 mg/dLNOSC HealthcarePROTEIN CREATININE RATIO URINE2.49NOMS HealthcareCLINISYNCNOMS HealthcareUrine protein/creatinine ratioOrdered By: Elsy Patino on 47-81-9273Mmlwwiy/Creatinine (U) [Ratio]2.49T[facility]caraw[facility] HospitalErythrocyte distribution width Auto (RBC) [Ratio]Ordered By: Elsy Patino on 86-24-2721Szbhsgozpiv distribution width (RBC) [Ratio]17.8 %High 11.0-15.0T[facility]aw[facility] HospitalGlomerular filtration rate (GFR) estimation in non- AmericanOrdered By: Elsy Patino on 89-78-3066LZH/1.73 sq M.predicted among non-blacks MDRD (S/P/Bld) [Vol rate/Area]14 mL/min/{1.73_m2}Low>=60 mL/min/1.73m [address] [place] [address] CBC WITH PLATELET NO DIFFERENTIALon 77-79-7559Qkchxphwidh distribution width (RBC) [Ratio]17.8 %High11.0 - 15.0 %NOMS HealthcareHematocrit (Bld) [Volume fraction] 26.8 %Low36.0 - 48.0 %NOMS HealthcareHemoglobin (Bld) [Mass/Vol]9.1 g/dLLow12.0 - 16.0 g/dLNOSC HealthcareInterpretation and review of laboratory results AbnormalBothwell Regional Health CenterH (RBC) [Entitic mass]29.0 pg26.7 - 34.0 pgBothwell Regional Health CenterHC (RBC) [Mass/Vol]34.0 g/dL29.9 - 35.2 g/dLBothwell Regional Health CenterV (RBC) [Entitic vol]85.4 fL81.0 - 99.0 fLCedar County Memorial HospitalPlatelet mean volume (Bld) [Entitic vol]10.7 fL9.5 - 13.5 fLCedar County Memorial HospitalTBH EHM866VMZFSaint Luke's North Hospital–SmithvilleTB RBC 3.14LowCoxHealth WBC4.3Cedar County Memorial HospitalCLINISYNCNMosaic [facility] Hematocrit Auto (Bld) [Volume fraction]Ordered By: Elsy Patino on 07-09-2025 Hematocrit (Bld) [Volume fraction]26.8 %Low36.0-48.0[facility] HospitalHemoglobin [Mass/volume] in BloodOrdered By: Elsy Patino on 07-09-2025 Hemoglobin (Bld) [Mass/Vol]9.1 g/dLLow12.0-16.0[facility] Iron binding capacity [Mass/volume] in Serum or PlasmaOrdered By: Elsy Patino on 06-00-0617Cnna binding capacity [Mass/Vol]301.0 ug/dL250.0-450.0[facility] HospitalIron saturation [Mass Fraction] in Serum or PlasmaOrdered By: Elsy Patino on 57-42-7575Tuzd saturation [Mass fraction]13.3 %[facility] HospitalLaboratory - Chemistry and Chemistry - challengeOrdered By: Elsy Patino on 50-77-5482Rplvhzn [Mass/Vol]3.1 g/dLLow3.4-5.0[facility] HospitalCalcium [Mass/Vol]6.1 mg/dLLow8.5-10.1FDiley Ridge Medical CenterChloride [Moles/Vol]103 mmol/Q22-651DxuhwispeTuscarawas HospitalCO2 [Moles/Vol]24.9 mmol/L21.0-32.0[facility] Cobalamin (Vitamin B12) [Mass/Vol]437 pg/eO857-6121GyfiwyrxxTuscarawas HospitalComment on above:Performed at: [facility] [address] [id number] Director: Raul Medel PhD, Phone: [phone] Creatinine [Mass/Vol]3.20 mg/dLHigh0.55-1.02[facility] Ferritin [Mass/Vol]88.0 ng/mL8.0-252.0[facility] HospitalGFR/1.73 sq M.predicted MDRD (S/P/Bld) [Vol rate/Area]17 mL/min/{1.73_m2}Low>=60 mL/min/1.73m 2FDiley Ridge Medical CenterGlucose [Mass/Vol]99 mg/lW12-824 [facility] HospitalIron [Mass/Vol]40.0 ug/dLLow50.0-170.0[facility] HospitalMagnesium [Mass/Vol]0.6 mg/dLCritically low1.8-2.4 [facility] HospitalComment on above:RESULTS CALLED TOPotassium [Moles/Vol]3.2 mmol/LLow3.5-5.1FAdena Fayette Medical Centerodium [Moles/Vol]141 mmol/X671-843ZtsnrxzyiTuscarawas HospitalUrate [Mass/Vol]8.1 mg/dLHigh2.6-6.0[facility] HospitalUrea nitrogen [Mass/Vol]65.0 mg/dLHigh7.0-18.0[facility] HospitalUrea nitrogen/Creatinine [Mass ratio]20.3 mg/mgTuscarawas HospitalLeukocytes [#/volume] corrected for nucleated erythrocytes in Blood by Automated counOrdered By: Elsy Patino on 18-50-9751QPZ corrected for nucl RBC Auto (Bld) [#/Vol]4.3 10 3/uL 4.0-11.0[facility] Auto (RBC) [Entitic mass]Ordered By: Elsy Patino on 27-67-5572UDH (RBC) [Entitic mass]29.0 pg26.7-34.0[facility] Auto (RBC) [Mass/Vol]Ordered By: Elsy Patino on 57-63-0924OFVS (RBC) [Mass/Vol]34.0 g/dL29.9-35.2FDiley Ridge Medical CenterMCV Auto (RBC) [Entitic vol]Ordered By: Elsy Patino on 06-32-6847WGK (RBC) [Entitic vol]85.4 fL81.0-99.0[facility] HospitalNo Panel InformationOrdered By: Elsy Patino on 713328-Eyvvzhm Vitamin D Total28.8 ng/mLTuscarawas HospitalComment on above:<20 ng/mL Vit D dcmpprini24-<30 ng/mL Vit D vsvikfwogfnv02-596 ng/mL Vit D sufficient>100 ng/mL Potential ToxicityFolate4.80 ng/mLLow8.60-58.90[facility] Parathyroid Hormone (Intact)77 pg/rWTnmwtvxf31-46GrhhvwpnzTuscarawas HospitalComment on above:Performed at: [facility] [id number] Director: Raul Medel PhD, Phone: [phone] Phosphorus Level4.2 mg/dL2.6-4.7FDiley Ridge Medical CenterPlatelet mean volume Auto (Bld) [Entitic vol]Ordered By: Elsy Patino on 68-13-8602Tqfdpxxh mean volume (Bld) [Entitic vol]10.7 fL9.5-13.5FDiley Ridge Medical Center Platelets Auto (Bld) [#/Vol]Ordered By: Elsy Patino on 96-14-0989Wguzrjftr (Bld) [#/Vol]181 10 3/zM120-252AjscgbsbnTuscarawas HospitalRBC Auto (Bld) [#/Vol]Ordered By: Elsy Patino on 58-54-7995STP (Bld) [#/Vol]3.14 10 6/uLLow 4.20-5.40[facility] Medical Centererum or plasma anion gap determinationOrdered By: Elsy Patino on 36-02-6225Nrvop gap [Moles/Vol]16.3 mmol/LFDiley Ridge Medical CenterCOMPREHENSIVE METABOLIC PANELon 84-01-4098Munhfqz [Mass/Vol]3.7 g/dLNormal3.6-5.1Quest DiagnosticsComment on above:Performed By: #### [id number] #### [facility] of [place] [address] [address] Iron Worker: Figueroa Jacques MDAlbumin/Globulin [Mass ratio]1.6 {ratio}Normal 1.0-2.5Quest DiagnosticsComment on above:Performed By: #### [id number] #### [facility] of [address], [address] [place] [address] S Iron Worker: Figueroa Jacques MDALP [Catalytic activity/Vol]24 U/SBdf96-758 Quest DiagnosticsComment on above:Performed By: #### 87031 #### [facility] [place] [address] [address] Worker: Figueroa Jacques MDALT [Catalytic activity/Vol]8 U/LNormal6-29 [facility] DiagnosticsComment on above:Performed By: #### 23618 #### [facility] [place] [address] [address] Worker: Figueroa Jacques MDAST [Catalytic activity/Vol]32 U/VIybvno71-78 [facility] DiagnosticsComment on above:Performed By: #### 46203 #### [facility] [place] [address] [address] Worker: Figueroa Jacques MDBilirubin [Mass/Vol]0.7 mg/dLNormal0.2-1.2 Quest DiagnosticsComment on above:Performed By: #### 88027 #### [facility] [place] [address] [address] Worker: Figueroa Jacques MDCalcium [Mass/Vol]6.6 mg/dLLow8.6-10.4Quest DiagnosticsComment on above:Performed By: #### 37986 #### [facility] of [address], [address] [place] [address] S Iron Worker: Figueroa OCHOAhloride [Moles/Vol]103 mmol/EJykftq41-285 Quest DiagnosticsComment on above:Performed By: #### 82589 #### [facility] [place] [address] [address] Worker: Figueroa Jacques MDCO2 [Moles/Vol]24 mmol/YJljlcm36-45Ckvvp DiagnosticsComment on above:Performed By: #### 33005 #### [facility] [place] [address] [address] Worker: Figueroa OCHOAreatinine [Mass/Vol]3.66 mg/dLHigh0.60-1.00 Quest DiagnosticsComment on above:Performed By: #### 26022 #### [facility] [place] [address] [address] Worker: Figueroa Jacques MDGFR/1.73 sq M.predicted among non-blacks MDRD (S/P/Bld) [Vol rate/Area]12 mL/min/{1.73_m2}Low> OR = 60Quest DiagnosticsComment on above:Performed By: #### 78395 #### [facility] [place] [address] [address] Worker: Figueroa Jacques MDGlobulin (S) [Mass/Vol]2.3 g/dLNormal1.9-3.7 Quest DiagnosticsComment on above:Performed By: #### 05439 #### [facility] [place] [address] [address] Worker: Figueroa Jacques MDGlucose [Mass/Vol]124 mg/nSElmw23-94Unlwr DiagnosticsComment on above:Result Comment: Fasting reference interval For someone without known diabetes, a glucose value between 100 and 125 mg/dL is consistent with prediabetes and should be confirmed with a follow-up test.Performed By: #### 04214 #### [facility] [place] [address] [address] Iron Worker: Figueroa Jacques MDPotassium [Moles/Vol]3.3 mmol/LLow3.5-5.3Quest DiagnosticsComment on above:Performed By: #### 68999 #### [facility] of [address], [address] [place] [address] S Iron Worker: Figueroa Jacques MDProtein [Mass/Vol]6.0 g/dLLow6.1-8.1Quest DiagnosticsComment on above:Performed By: #### 12256 #### [facility] [place] [address] [address] Worker: Figueroa Jacques MDSodium [Moles/Vol]140 mmol/TOcjact576-121Mhfia DiagnosticsComment on above:Performed By: #### 56308 #### [facility] [place] [address] [address] Worker: Figueroa Jacques MDUrea nitrogen [Mass/Vol]72 mg/dLHigh7-25Quest DiagnosticsComment on above:Performed By: #### [id number] #### [facility] [place] [address] [address] Worker: Figueroa Perez nitrogen/Creatinine [Mass ratio]20 mg/mg Normal6-22Quest DiagnosticsComment on above:Performed By: #### 33936 #### [facility] [place] [address] [address] Worker: Figueroa Jacques MDLaboratory - Chemistry and Chemistry - [facility] 74-34-7113Ufjvhii [Mass/Vol]3.7 g/dL3.6 - 5.1 g/dLNOSC Healthcare Albumin/Globulin [Mass ratio]1.6 {ratio}NOMS HealthcareALP [Catalytic activity/Vol]24 U/LLow37 - 153 U/LNOMS HealthcareALT [Catalytic activity/Vol]8 U/L6 - 29 U/LNOMS HealthcareAST [Catalytic activity/Vol]32 U/L10 - 35 U/LNOMS HealthcareBilirubin [Mass/Vol]0.7 mg/dL0.2 - 1.2 mg/dLNOSC HealthcareCalcium [Mass/Vol]6.6 mg/dLLow8.6 - 10.4 mg/dLNOSC HealthcareChloride [Moles/Vol]103 mmol/L98 - 110 mmol/LNOMS HealthcareCO2 [Moles/Vol]24 mmol/L20 - 32 mmol/LNOMS HealthcareCreatinine [Mass/Vol]3.66 mg/dLHigh0.60 - 1.00 mg/dLNOSC Healthcare GFR/1.73 sq M.predicted among non-blacks MDRD (S/P/Bld) [Vol rate/Area]12 mL/min/{1.73_m2}Low> OR = 60 mL/min/1.59f5YXKS HealthcareGlobulin (S) [Mass/Vol] 2.3 g/dLNOSC HealthcareGlucose [Mass/Vol]124 mg/fWKqbv33 - 99 mg/dLNOSC HealthcareComment on above: Fasting reference interval For someone without known diabetes, a glucose value between 100 and 125 mg/dL is consistent with prediabetes and should be confirmed with a follow-up test. Potassium [Moles/Vol]3.3 mmol/LLow3.5 - 5.3 mmol/LNOMS HealthcareProtein [Mass/Vol]6.0 g/dLLow6.1 - 8.1 g/dLNOSC HealthcareSodium [Moles/Vol]140 mmol/L 135 - 146 mmol/LNOMS HealthcareUrea nitrogen [Mass/Vol]72 mg/dLHigh7 - 25 mg/dL NOM HealthcareUrea nitrogen/Creatinine [Mass ratio]20 mg/mgNOSaint Luke's North Hospital–SmithvilleNo Panel Informationon [id number] and review of laboratory results AbnormalCedar County Memorial HospitalPerforming Organization Information Site ID: QPT Name: [employer] [facility] Address: [address] [place] [address], [address] [place] [id number] Director: Figueroa Jacques MDUNC Health WayneALL PRO BNPon 06-09-2025 NT PRO B TYPE NATRIURETIC [id number] pg/mLCritically highNINF - 1800.0 pg/mLNOMS HealthcareComment on above:RESULTS CALLED TO PEPE FISHER CMP (CMP) (FOR REMOTE [facility] USE)on [id number] [Mass/Vol]3.4 g/dL3.4 - 5.0 g/dLNOSC HealthcareALBUMIN GLOBULIN RATIO0.9NOMS HealthcareALP [Catalytic activity/Vol]30 U/LLow46 - 116 U/LNOMS HealthcareALT [Catalytic activity/Vol]10 U/LLow14 - 59 U/LNOMS HealthcareAnion gap [Moles/Vol]14.5 mmol/LNOMS HealthcareAST [Catalytic activity/Vol]35 U/L15 - 37 U/LNOMS HealthcareBilirubin [Mass/Vol]0.8 mg/dL0.2 - 1.0 mg/dLNOMS HealthcareCalcium [Mass/Vol]6.8 mg/dLLow8.5 - 10.1 mg/dLNOMS HealthcareChloride [Moles/Vol]102 mmol/L98 - 107 mmol/LNOMS HealthcareCO2 [Moles/Vol]29.5 mmol/L21.0 - 32.0 mmol/LNOMS HealthcareCreatinine [Mass/Vol]3.8 mg/dLHigh0.55 - 1.02 mg/dLNOSC HealthcareGFR/1.73 sq M.predicted CKD-EPI (S/P/Bld) [Vol rate/Area]14Low>=60 mL/min/1.73m 2NOMS HealthcareGlobulin (S) [Mass/Vol]3.8 g/dLNOMS HealthcareGlucose [Mass/Vol]99 mg/dL74 - 106 mg/dLNOSC HealthcarePotassium [Moles/Vol]3 mmol/LLow3.5 - 5.1 mmol/LNOMS HealthcareProtein [Mass/Vol]7.2 g/dL6.4 - 8.2 g/dLNOSC HealthcareSodium [Moles/Vol]143 mmol/L136 - 145 mmol/LNOMS HealthcareTBH EGFR-NON AF UZTPRJAQ88Qzr>=60 mL/min/1.73m 2NOMS HealthcareUrea nitrogen [Mass/Vol]64 mg/dLHigh7.0 - 18.0 mg/dLNOSC Healthcare Urea nitrogen/Creatinine [Mass ratio]16.8 mg/mgNOMS HealthcareNo Panel Informationon [id number] and review of laboratory resultsAbnormal NOMS HealthcareCLINISYNCNOMS HealthcareTSH W/REFLEX T4on 19-52-8912COY Qn4.13 m[IU]/[facility] Systemsi Metabolic Panelon 02-94-6057Nasdz gap [Moles/Vol]10.5 mmol/LNormal6.0-15.0The [facility] Physician GroupComment on above:Performed By: #### BMP, CBC ####[address] [place] [address] USACalcium [Mass/Vol]8.5 mg/dLLow8.6-10.3The [facility] Physician GroupComment on above:Performed By: #### BMP, CBC ####[address] [address] USAChloride [Moles/Vol] 103 mmol/IUysyqa06-071Eyy [facility] Physician GroupComment on above:Performed By: #### BMP, CBC ####[address] [address] USACO2 [Moles/Vol]27.0 mmol/JUhwlbd62.0-31.0The [facility] Physician GroupComment on above:Performed By: #### BMP, CBC ####[address] [address] USACreatinine [Mass/Vol]4.15 mg/dLHigh 0.60-1.20The [facility] Physician GroupComment on above:Performed By: #### BMP, CBC ####[address] [address] [place] Creatinine Clr Calc Zjbfxwxe45.14NormalThe [facility] Physician GroupComment on above:Result Comment: PERFORMED BY: [facility] [address] [place] [address] PATHOLOGIST [employer]ER ELIZABETH MOREL M.D.Performed By: #### BMP, CBC ####[address] [address] USAGFR/1.73 sq M.predicted MDRD (S/P/Bld) [Vol rate/Area]10.650 mL/min/{1.73_m2}NormalThe [facility] Group Comment on above:Performed By: #### BMP, CBC ####[address] [place] [address] USAGlucose [Mass/Vol]136 mg/hMNfhx54-692 The [facility] Physician GroupComment on above:Result Comment: Random Glucose Reference Range is dependent on time and content of last meal. Glucose of more than 200 mg/dL in a nonstressed, ambulatory subject supports the diagnosis of Diabetes Mellitus. ADA recommended reference rangePerformed By: #### BMP, CBC ####[place] [address] USAPotassium [Moles/Vol] 3.5 mmol/LNormal3.5-5.1The [facility] Physician GroupComment on above:Performed By: #### BMP, CBC ####[place] [address] USASodium [Moles/Vol]137 mmol/EKrqmsq981-213Ovj [facility] Physician GroupComment on above:Performed By: #### BMP, CBC ####[place] [address] USAUrea nitrogen [Mass/Vol]61 mg/dLHigh 7-25The [facility] Physician GroupComment on above:Performed By: #### BMP, CBC ####[address] Complete Blood Count Auto Diffon 36-45-1475Fcsmsydme (Bld) [#/Vol]0.0 10*3/uL Normal0.0-0.2The [facility] Physician GroupComment on above:Result Comment: PERFORMED BY: [facility] [address] [place] [address] PATHOLOGIST [employer]ER ELIZABETH MOREL M.D.Performed By: #### BMP, CBC ####[place] [address] USABasophils/100 WBC (Bld)0.7 %Normal.The [facility] Physician GroupComment on above:Performed By: #### BMP, CBC ####[place] [address] [place] Eosinophils (Bld) [#/Vol]0.2 10*3/uLNormal0.0-0.45The [facility] Physician [facility] Comment on above:Performed By: #### BMP, CBC ####[place] [address] USAEosinophils/100 WBC (Bld)3.3 %Normal. The [facility] Physician GroupComment on above:Performed By: #### BMP, CBC ####[address] Erythrocyte distribution width (RBC) [Ratio]16.4 %High11.9-15.3The [facility] Physician GroupComment on above:Performed By: #### BMP, CBC ####[place] [address] USAHematocrit (Bld) [Volume fraction]27.2 %Low34.0-46.4The [facility] Physician GroupComment on above:Performed By: #### BMP, CBC ####[place] [address] USAHemoglobin (Bld) [Mass/Vol]9.0 g/dLLow11.8-15.4The [facility] Physician GroupComment on above:Performed By: #### BMP, CBC ####[place] [address] [place] Lymphocytes (Bld) [#/Vol]0.8 10*3/uLLow1.00-4.8The [facility]ician Group Comment on above:Performed By: #### BMP, CBC ####[place] [address] USALymphocytes/100 WBC (Bld)14.9 %Normal. The [facility] Physician GroupComment on above:Performed By: #### BMP, CBC ####[place] [address] USAMCH (RBC) [Entitic mass]29.1 dwLgikfm27.7-34.3The [facility] Physician GroupComment on above:Performed By: #### BMP, CBC ####[place] [address] USAMCV (RBC) [Entitic vol]88.3 sFXtenca94-947Bvb [facility] Physician GroupComment on above:Performed By: #### BMP, CBC ####[place] [address] USAMean Corpuscular HGB Conc33.0 g/gSFuafot43.0-35.0The [facility] Physician GroupComment on above:Performed By: #### BMP, CBC ####[place] [address] USAMonocytes (Bld) [#/Vol]0.5 10*3/uLNormal 0.0-0.8The [facility] Physician GroupComment on above:Performed By: #### BMP, CBC ####[place] [address] [place] Monocytes/100 WBC (Bld)9.1 %Normal.The [facility] Physician GroupComment on above:Performed By: #### BMP, CBC ####[place] [address] USANeutrophils (Bld) [#/Vol]4.0 10*3/uLNormal1.8-7.7The [facility] Physician GroupComment on above:Performed By: #### BMP, CBC ####[place] [address] [place] Neutrophils/100 WBC (Bld)72.0 %Normal.The [facility] Physician GroupComment on above:Performed By: #### BMP, CBC ####[place] [address] USANRBC%0.1 /100{WBC}Normal0-0.5The [facility] Physician GroupComment on above:Performed By: #### BMP, CBC ####[place] [address] USAPlatelet mean volume (Bld) [Entitic vol]9.3 fLNormal6.3-10.7The [facility] Physician GroupComment on above: Performed By: #### BMP, CBC ####[address] [place] [address] USAPlatelets (Bld) [#/Vol]176 10*3/vQNyrxpf709-628Fqa [facility] Physician GroupComment on above:Performed By: #### BMP, CBC ####[place] [address] USARBC (Bld) [#/Vol]3.09 10*6/uLLow3.60-5.00The [facility] Physician GroupComment on above:Performed By: #### BMP, CBC ####[place] [address] USAWBC (Bld) [#/Vol]5.6 10*3/uLNormal3.8-11.6The [facility] Physician GroupComment on above:Performed By: #### BMP, CBC ####[place] [address] USAWhite Blood Count5.6 [CFU]/mLNormal3.8-11.6The [facility] Physician GroupComment on above:Performed By: #### BMP, CBC ####[place] [address] USABasic Metabolic Panelon 08-76-9786Iudpi gap [Moles/Vol]12.2 mmol/LNormal6.0-15.0The [facility] Physician GroupComment on above:Performed By: #### BMP #### [facility] [address] [place] [address] USACalcium [Mass/Vol]8.4 mg/dLLow8.6-10.3The [facility] Physician GroupComment on above:Performed By: #### BMP #### [facility] [address] [place] [address] USAChloride [Moles/Vol]106 mmol/YSttxlw72-386Fzm [facility] Physician GroupComment on above:Performed By: #### BMP #### [facility] [address] [place] [address] USACO2 [Moles/Vol]25.2 mmol/PAictvb47.0-31.0The [facility] Physician GroupComment on above:Performed By: #### BMP #### [place] [address] USACreatinine [Mass/Vol]3.69 mg/dLHigh0.60-1.20The [facility] Physician GroupComment on above:Performed By: #### BMP #### [place] [address] USACreatinine Clr Calc Kpiwsyku02.26NormalThe [facility] Physician GroupComment on above:Result Comment: PERFORMED BY: [place] [address] PATHOLOGIST [employer]ER ELIZABETH MOREL M.D.Performed By: #### BMP #### [place] [address] USAGFR/1.73 sq M.predicted MDRD (S/P/Bld) [Vol rate/Area] 12.263 mL/min/{1.73_m2}NormalThe [facility] Physician GroupComment on above: Performed By: #### BMP #### [place] [address] USAGlucose [Mass/Vol]79 mg/oAMvdmay95-629Vxh [facility] Physician GroupComment on above:Result Comment: Random Glucose Reference Range is dependent on time and content of last meal. Glucose of more than 200 mg/dL in a nonstressed, ambulatory subject supports the diagnosis of Diabetes Mellitus. ADA recommended reference rangePerformed By: #### BMP #### [place] [address] USAPotassium [Moles/Vol]3.4 mmol/LLow3.5-5.1The [facility] Physician GroupComment on above:Performed By: #### BMP #### [place] [address] USASodium [Moles/Vol]140 mmol/NQxhwww386-191Qgu [facility] Physician GroupComment on above:Performed By: #### BMP #### [place] [address] USAUrea nitrogen [Mass/Vol]62 mg/dLHigh7-25The [facility] Physician GroupComment on above:Performed By: #### BMP #### [facility] [address] [place] [id number] USACreatinine, Urine (Random)on 92-16-2815Pstcnxxpeh, Urine (Random)61.00 mg/dLNormalThe [facility] Physician GroupComment on above:Result Comment: No reference range establishedPerformed By: #### UCREA, URTP ####[address] Pathology Request for Lab Corpon [id number] Request for Lab CorpNormal The [facility] Physician GroupComment on above:Order Comment: GI SPECIMENResult Comment: See report. Scanned copy available in EMR. PERFORMED BY: [place] [address] PATHOLOGIST [employer] PLAYER ELIZABETH MOREL M.D.Performed By: #### PATH TO [facility] ####[place] [address] USATotal Protein, Urineon 26-74-2725Hijgjux (U) [Mass/Vol]67 mg/dLHigh0-9The [facility] Physician Group Comment on above:Result Comment: PERFORMED BY: [place] [address] PATHOLOGIST [employer]HONE PLAYER ELIZABETH MOREL M.D.Performed By: #### UCREA, URTP ####[place] [address] USAComplete Blood Count Auto Diff on 75-29-6966Rqjrrskne (Bld) [#/Vol]0.0 10*3/uLNormal0.0-0.2The [facility] Physician [facility] CenterComment on above:Result Comment: PERFORMED BY: [place] [address] PATHOLOGIST SAXOPHONE PLAYER ELIZABETH MOREL M.D.Performed By: #### MG, PT, CMP, PHOS, CBC, PTT ####[address] Basophils/100 WBC (Bld)1.0 %Normal.The [facility] Physician GroupComment on above:Performed By: #### MG, PT, CMP, PHOS, CBC, PTT ####[place] [address] USAEosinophils (Bld) [#/Vol]0.2 10*3/uLNormal0.0-0.45The [facility] Physician GroupComment on above:Performed By: #### MG, PT, CMP, PHOS, CBC, PTT ####[place] [address] USAEosinophils/100 WBC (Bld)4.2 %Normal.The [facility] Physician GroupComment on above:Performed By: #### MG, PT, CMP, PHOS, CBC, PTT ####[address] Erythrocyte distribution width (RBC) [Ratio]16.3 %High11.9-15.3The [facility] Physician GroupComment on above:Performed By: #### MG, PT, CMP, PHOS, CBC, PTT ####[address] Hematocrit (Bld) [Volume fraction]24.8 %Low34.0-46.4The [facility] Physician GroupComment on above:Performed By: #### MG, PT, CMP, PHOS, CBC, PTT ####[address] Hemoglobin (Bld) [Mass/Vol]8.4 g/dLLow11.8-15.4The [facility]ician Group Comment on above:Performed By: #### MG, PT, CMP, PHOS, CBC, PTT ####[place] [address] USALymphocytes (Bld) [#/Vol]1.2 10*3/uLNormal1.00-4.8The [facility] Physician GroupComment on above: Performed By: #### MG, PT, CMP, PHOS, CBC, PTT ####[place] [address] USALymphocytes/100 WBC (Bld)29.3 %Normal. The [facility] Physician GroupComment on above:Performed By: #### MG, PT, CMP, PHOS, CBC, PTT ####[address] (RBC) [Entitic mass]29.7 cpOfodej34.7-34.3The [facility] Physician GroupComment on above:Performed By: #### MG, PT, CMP, PHOS, CBC, PTT ####[address] (RBC) [Entitic vol]88.2 sAAzxbfw11-444Irs [facility] Physician GroupComment on above:Performed By: #### MG, PT, CMP, PHOS, CBC, PTT ####[place] [address] USAMean Corpuscular HGB Conc33.7 g/sNKydkav26.0-35.0The [facility] Physician GroupComment on above:Performed By: #### MG, PT, CMP, PHOS, CBC, PTT ####[place] [address] USAMonocytes (Bld) [#/Vol]0.5 10*3/uLNormal0.0-0.8The [facility] Physician GroupComment on above:Performed By: #### MG, PT, CMP, PHOS, CBC, PTT ####[place] [address] USAMonocytes/100 WBC (Bld)12.9 %Normal.The [facility] Physician GroupComment on above:Performed By: #### MG, PT, CMP, PHOS, CBC, PTT ####[place] [address] USANeutrophils (Bld) [#/Vol]2.1 10*3/uLNormal1.8-7.7The [facility] Physician GroupComment on above:Performed By: #### MG, PT, CMP, PHOS, CBC, PTT ####[place] [address] USANeutrophils/100 WBC (Bld)52.6 %Normal.The [facility] Physician GroupComment on above:Performed By: #### MG, PT, CMP, PHOS, CBC, PTT ####[place] [address] USANRBC% 0.1 /100{WBC}Normal0-0.5The [facility] Physician GroupComment on above:Performed By: #### MG, PT, CMP, PHOS, CBC, PTT ####[place] [address] USAPlatelet mean volume (Bld) [Entitic vol]9.2 fL Normal6.3-10.7The [facility] Physician GroupComment on above:Performed By: #### MG, PT, CMP, PHOS, CBC, PTT ####[place] [address] USAPlatelets (Bld) [#/Vol]188 10*3/sJWyuffm968-750Can [facility] Physician GroupComment on above:Performed By: #### MG, PT, CMP, PHOS, CBC, PTT ####[place] USARBC (Bld) [#/Vol]2.81 10*6/uLLow3.60-5.00The [facility] Physician GroupComment on above:Performed By: #### MG, PT, CMP, PHOS, CBC, PTT ####[place] [address] USAWBC (Bld) [#/Vol]4.1 10*3/uL Normal3.8-11.6The [facility] Physician GroupComment on above:Performed By: #### MG, PT, CMP, PHOS, CBC, PTT ####[place] [address] USAWhite Blood Count4.1 [CFU]/mLNormal3.8-11.6The [facility] Physician GroupComment on above:Performed By: #### MG, PT, CMP, PHOS, CBC, PTT ####[place] [address] USAComprehensive Metabolic Panelon 58-43-9443Zrihpdk [Mass/Vol]3.3 g/dLLow 3.5-5.7The [facility] Physician GroupComment on above:Performed By: #### MG, PT, CMP, PHOS, CBC, PTT ####[place] [address] USAAlbumin/Globulin [Mass ratio]1.4 {ratio}NormalThe [facility] Physician GroupComment on above:Performed By: #### MG, PT, CMP, PHOS, CBC, PTT ####[place] [address] USAALP [Catalytic activity/Vol]29 U/WDqu49-798Izm [facility] Physician GroupComment on above:Performed By: #### MG, PT, CMP, PHOS, CBC, PTT ####[place] [address] USAALT [Catalytic activity/Vol]4 U/LLow7-52The [facility] Physician GroupComment on above:Performed By: #### MG, PT, CMP, PHOS, CBC, PTT ####[place] [address] USAAnion gap [Moles/Vol]11.2 mmol/LNormal6.0-15.0The [facility] Physician GroupComment on above:Performed By: #### MG, PT, CMP, PHOS, CBC, PTT ####[place] [address] USAAST [Catalytic activity/Vol]17 U/HNsphts96-14Oos [facility] Physician GroupComment on above:Performed By: #### MG, PT, CMP, PHOS, CBC, PTT ####[place] [address] USABilirubin [Mass/Vol]0.5 mg/dL Normal0.3-1.0The [facility] Physician GroupComment on above:Performed By: #### MG, PT, CMP, PHOS, CBC, PTT ####[place] [address] USACalcium [Mass/Vol]8.2 mg/dLLow8.6-10.3The [facility] Physician GroupComment on above:Performed By: #### MG, PT, CMP, PHOS, CBC, PTT ####[place] [address] [place] Chloride [Moles/Vol]105 mmol/MGdqhrc87-953Zvb [facility] Physician GroupComment on above:Performed By: #### MG, PT, CMP, PHOS, CBC, PTT ####[place] [address] USACO2 [Moles/Vol]26.6 mmol/L Qoahzy83.0-31.0The [facility] Physician GroupComment on above:Performed By: #### MG, PT, CMP, PHOS, CBC, PTT ####[place] [address] USACreatinine [Mass/Vol]3.53 mg/dLHigh0.60-1.20The [facility] Physician GroupComment on above:Performed By: #### MG, PT, CMP, PHOS, CBC, PTT ####[place] [address] USACreatinine Clr Calc Kdtdnqjh94.77NoOnslow Memorial Hospital Physician GroupComment on above:Performed By: #### MG, PT, CMP, PHOS, CBC, PTT ####[place] [address] USAGFR/1.73 sq M.predicted MDRD (S/P/Bld) [Vol rate/Area]12.933 mL/min/{1.73_m2}NormalThe [facility] Physician GroupComment on above:Performed By: #### MG, PT, CMP, PHOS, CBC, PTT ####[place] [address] [place] Globulin (S) [Mass/Vol]2.4 g/dLLower Keys Medical Center Physician GroupComment on above:Performed By: #### MG, PT, CMP, PHOS, CBC, PTT ####[place] [address] USAGlucose [Mass/Vol]77 mg/dL Cfyoqg72-479Cvb [facility] Physician GroupComment on above:Result Comment: Random Glucose Reference Range is dependent on time and content of last meal. Glucose of more than 200 mg/dL in a nonstressed, ambulatory subject supports the diagnosis of Diabetes Mellitus. ADA recommended reference rangePerformed By: #### MG, PT, CMP, PHOS, CBC, PTT ####[address] [place] [address] [place] Potassium [Moles/Vol]3.8 mmol/LNormal3.5-5.1The [facility] Physician GroupComment on above:Performed By: #### MG, PT, CMP, PHOS, CBC, PTT ####[place] [address] USAProtein [Mass/Vol]5.7 g/dLLow 6.4-8.9The [facility] Physician GroupComment on above:Performed By: #### MG, PT, CMP, PHOS, CBC, PTT ####[place] [address] USASodium [Moles/Vol]139 mmol/STmbmpq349-683Emg [facility] Physician GroupComment on above:Performed By: #### MG, PT, CMP, PHOS, CBC, PTT ####[place] [address] USAUrea nitrogen [Mass/Vol]64 mg/dLHigh7-25The [facility] Physician GroupComment on above:Performed By: #### MG, PT, CMP, PHOS, CBC, PTT ####[place] [address] USAECH echo transthoracicon 56-26-5697VJF echo transthoracicMERCY HEALTH [address] [place] [address] [place] [address] Echocardiogram Signed Patient: Marleni Dennis MR#: [id number] : 1950 Acct:[id number] Age/Sex: 74 / F ADM Date: 04/08/25 Loc: Room: 2N7582-9 Type: ADM IN Attending Dr: Nick Antonio [...] GARCIA MD on (more content not included)...NormalThe [facility] Physician GroupMagnesiumon 85-83-1840Gdyvqbngz [Mass/Vol]1.1 mg/dLLow1.9-2.7The [facility] Physician GroupComment on above: Result Comment: PERFORMED BY: [facility] [address] [place] [id number] PATHOLOGIST SAXOPHONE PLAYER ELIZABETH MOREL M.D.Performed By: #### MG, PT, CMP, PHOS, CBC, PTT ####[address] [place] [address] [facility] SERVICE UNITPartial Thromboplastin Timeon 73-46-7334lUYR Coag (Bld) [Time]31.2 oIsbiho54.1-36.5The [facility] Physician GroupComment on above:Result Comment: A hematocrit value greater than 55% may lead to inaccurate results in coagulation testing. Patients having hematocrit values >55% require a special collection tube for coagulation studies. Please contact the laboratory at [phone] for redraw instructions. PERFORMED BY: [facility] [address] [facility] [place] [address] PATHOLOGIST [employer]XOPHONE PLAYER ELIZABETH MOREL M.D.Performed By: #### MG, PT, CMP, PHOS, CBC, PTT ####[place] [address] [facility] Phosphoruson 39-21-3317Aissxvucy [Mass/Vol]3.2 mg/dLNormal2.5-4.5The [facility] Physician GroupComment on above:Performed By: #### MG, PT, CMP, PHOS, CBC, PTT ####[place] [address] [facility] Prothrombin Time INRon 73-50-9529LUA Coag (PPP) [Relative time]1.3 {INR}Normal The [facility] Physician GroupComment on above:Result Comment: INR Therapeutic [...] #### MG, PT, CMP, PHOS, CBC, PTT ####[address] [place] [address] USAPT Coag (PPP) [Time]15.2 sHigh9.0-12.9The [facility] Physician GroupComment on above:Result Comment: A hematocrit value greater than 55% may lead to inaccurate results in coagulation testing. Patients having hematocrit values >55% require a special collection tube for coagulation studies. Please contact the laboratory at [phone] for redraw instructions.Performed By: #### MG, PT, CMP, PHOS, CBC, PTT ####[facility] [place] [address] USAAlanine aminotransferase [Enzymatic activity/volume] in Serum or PlasmaOrdered By: Sohail Figueroa on 64-65-3073JUD [Catalytic activity/Vol]6 U/LLow7-52Tuscarawas HospitalComment on above:Performed By: #### PT, PTT, LIPASE, CMP, HS TROP, CBC #### [facility] [address] [place] [address] USAAlbumin [Mass/volume] in Serum or Plasma by Bromocresol green (BCG) dye binding methoOrdered By: Sohail Figueroa on 07-93-5526Awobrvi BCG dye [Mass/Vol]4.1 g/dL3.5-5.7FDiley Ridge Medical CenterAlkaline phosphatase [Enzymatic activity/volume] in Serum or PlasmaOrdered By: Sohail Figueroa on 57-25-7057UYI [Catalytic activity/Vol]38 U/YYgvapu37-273GiizzvnucTuscarawas HospitalComment on above:Performed By: #### PT, PTT, LIPASE, CMP, HS TROP, CBC #### [facility] [address] [place] [address] USAAppearance of UrineOrdered By: Sohail Figueroa on 04-08-2025 Appearance (U)ClearNormalClearTuscarawas HospitalComment on above: Order Comment: Name Collection Type:: Clean-Voided MidstreamPerformed By: #### ADDONUAPLUS ####[facility] [place] [address] USAAspartate aminotransferase [Enzymatic activity/volume] in Serum or PlasmaOrdered By: Sohail Figueroa on 65-76-4914KOK [Catalytic activity/Vol]22 U/L Xsxtqc96-10UfarjyhboTuscarawas HospitalComment on above:Performed By: #### PT, PTT, LIPASE, CMP, HS TROP, CBC #### [facility] [address] [place] [address] USABNP ser/plasOrdered By: Sohail Figueroa on 04-08-2025 Natriuretic peptide B (Bld) [Mass/Vol]1455.0 pg/mLHigh5-100Tuscarawas HospitalComment on above:Result Comment: PERFORMED BY: [facility] [address] [place] [address] PATHOLOGIST [employer]ER ELIZABETH MOREL M.D.Performed By: #### BNP ####[facility] [place] [address] USABacteria [Presence] in Urine by AutomatedOrdered By: Sohail Figueroa on 02-32-9725Oqhvivde Auto Ql (U)None seen [HPF]None SeenTuscarawas HospitalBasophils [#/volume] in Blood by Automated countOrdered By: Sohail Figueroa on 86-33-7305Vruihmqlb (Bld) [#/Vol]0.0 10*3/uLNormal0.0-0.2FDiley Ridge Medical CenterComment on above:Result Comment: PERFORMED BY: [place] [address] PATHOLOGIST [employer]ER ELIZABETH MOREL M.D.Performed By: #### PT, PTT, LIPASE, CMP, HS TROP, CBC #### [facility] [address] [place] [address] USABasophils/100 leukocytes in Blood by Automated count Ordered By: Sohail Figueroa on 66-51-0543Rfiitgccq/100 WBC (Bld)1.0 %Normal. Tuscarawas HospitalComment on above:Performed By: #### PT, PTT, LIPASE, CMP, HS TROP, CBC #### [facility] [address] [place] [address] USABilirubin Test strip Ql (U)Ordered By: Sohail Figueroa on 56-04-4501Ovtsapaua Ql (U)NegativeNegativeTuscarawas Hospital Bilirubin.total [Mass/volume] in Serum or PlasmaOrdered By: Sohail Figueroa on 35-57-8289Cfivkwkth [Mass/Vol]0.6 mg/dLNormal0.3-1.0Tuscarawas HospitalComment on above:Performed By: #### PT, PTT, LIPASE, CMP, HS TROP, CBC #### [facility] [address] [place] [address] USACT abdomen pelvis wo conon 47-39-5576IY abdomen pelvis wo [facility] [place] [address] [place] [address] CT Scan Report Signed Patient: Marleni Dennis MR#: [id number] : 1950 Acct:[id number] Age/Sex: 74 / F ADM Date: 04/08/25 Loc: ER Room: Type: [facility] ER Attending Dr: Copies to: Sohail Figueroa [...] Garnett M.D. 04/08/2025 8:27 PM Dictation Location: RADIO-PC-20 Transcribed By: [facility] 04/08/252026 Dictated By: Derek Garnett DO 04/08/252018 Signed By: 04/08/252026[facility] Physician GroupCalcium [Mass/volume] in Serum or PlasmaOrdered By: Sohail Figueroa on 46-80-6093Dtrsvqr [Mass/Vol]9.1 mg/dLNormal 8.6-10.3FDiley Ridge Medical CenterComment on above:Performed By: #### PT, PTT, LIPASE, CMP, HS TROP, CBC #### [facility] [address] [place] [id number] USACarbon dioxide, total [Moles/volume] in Serum or Plasma Ordered By: Sohail Figueroa on 37-40-1651QT5 [Moles/Vol]25.2 mmol/VXknbuc28.0-31.0 Tuscarawas HospitalComment on above:Performed By: #### PT, PTT, LIPASE, CMP, HS TROP, CBC #### [facility] [address] [place] [address] USAChloride [Moles/volume] in Serum or PlasmaOrdered By: Sohail Figueroa on 88-39-0692Ptrksaio [Moles/Vol]101 mmol/CAktlkz30-084RfsjdsalkTuscarawas HospitalComment on above:Performed By: #### PT, PTT, LIPASE, CMP, HS TROP, CBC #### [facility] [address] [place] [address] USAColor of Urine by AutoOrdered By: Sohail Figueroa on 77-51-1862Ejpzi (U)Light-yellowNormalYellowTuscarawas Hospital Comment on above:Order Comment: Name Collection Type:: Clean-Voided Midstream Performed By: #### ADDONUAPLUS ####[facility] [place] [address] USAComplete Blood Count Auto Diffon 50-98-6241Cbll Corpuscular HGB Conc34.0 g/uCCaizfz60.0-35.0The [facility] Physician GroupComment on above:Performed By: #### PT, PTT, LIPASE, CMP, HS TROP, CBC #### [place] [address] USAMonocytes/100 WBC (Bld)17.55 %Normal0.00-20.00The [facility] Physician GroupComment on above:Performed By: #### PT, PTT, LIPASE, CMP, HS TROP, CBC #### [place] [address] USANRBC%0.1 /100{WBC}Normal0-0.5The [facility] Physician Group Comment on above:Performed By: #### PT, PTT, LIPASE, CMP, HS TROP, CBC #### [place] [address] USAWhite Blood Count4.4 [CFU]/mLNormal3.8-11.6The [facility] Physician GroupComment on above:Performed By: #### PT, PTT, LIPASE, CMP, HS TROP, CBC #### [place] [address] USAComprehensive Metabolic Panelon 95-94-6018Rhedbuw [Mass/Vol]4.1 g/dLNormal3.5-5.7The [facility] Physician GroupComment on above: Performed By: #### PT, PTT, LIPASE, CMP, HS TROP, CBC #### [facility] [address] [place] [address] USACreatinine Clr Calc Eqtbblpo10.34NormalThe [facility] Physician GroupComment on above:Performed By: #### PT, PTT, LIPASE, CMP, HS TROP, CBC #### [place] [address] USAGFR/1.73 sq M.predicted MDRD (S/P/Bld) [Vol rate/Area] 13.433 mL/min/{1.73_m2}NormalThe [facility] Physician GroupComment on above: Performed By: #### PT, PTT, LIPASE, CMP, HS TROP, CBC #### [facility] [address] [place] [address] USACreatinine [Mass/volume] in Serum or PlasmaOrdered By: Sohail Figueroa on 10-21-6691Bahvqmized [Mass/Vol]3.42 mg/dLHigh0.60-1.20Tuscarawas HospitalComment on above:Performed By: #### PT, PTT, LIPASE, CMP, HS TROP, CBC #### [facility] [address] [place] [address] USADipstick and Microscopicon 09-56-0716Clrksleh,UrineNone SeenNormalNone SeenThe [facility] Physician GroupComment on above:Order Comment: Name Collection Type:: Clean-Voided MidstreamPerformed By: #### ADDONUAPLUS ####[place] [id number] [place] Bilirubin,UrineNegativeNormalNegativeThe [facility] Physician GroupComment on above:Order Comment: Name Collection Type:: Clean-Voided MidstreamPerformed By: #### ADDONUAPLUS ####[address] [address] USAGlucose Ql (U)NormalNormalNormalThe [facility] Physician GroupComment on above:Order Comment: Name Collection Type:: Clean-Voided MidstreamPerformed By: #### ADDONUAPLUS ####[place] [address] USAHyaline Casts,UrineNoneNormal0-8The [facility] Physician GroupComment on above:Order Comment: Name Collection Type:: Clean- Voided MidstreamResult Comment: PERFORMED BY: [place] [address] PATHOLOGIST [employer] PLAYER ELIZABETH MOREL M.D.Performed By: #### ADDONUAPLUS ####[address] [place] [address] USANitrite,UrineNegativeNormal NegativeThe [facility] Physician GroupComment on above:Order Comment: Name Collection Type:: Clean-Voided MidstreamPerformed By: #### ADDONUAPLUS ####[address] [address] USAOccult Blood,UrineNegativeNormalNegativeThe [facility] Physician GroupComment on above: Order Comment: Name Collection Type:: Clean-Voided MidstreamResult Comment: PERFORMED BY: [facility] [address] [place] [address] PATHOLOGIST [employer] PLAYER ELIZABETH MOREL M.D.Performed By: #### ADDONUAPLUS ####[address] [address] USARBC,Jmxlh4-4Mvypby5-8Jzj [facility] Physician GroupComment on above:Order Comment: Name Collection Type:: Clean-Voided MidstreamPerformed By: #### ADDONUAPLUS ####[address] [address] USASpecificy [place],Urine1.006 Normal1.001-1.030The [facility] Physician GroupComment on above:Order Comment: Name Collection Type:: Clean-Voided MidstreamPerformed By: #### ADDONUAPLUS ####[address] [address] [place] Urobilinogen,UrineNormalNormalNormalThe [facility] Physician GroupComment on above:Order Comment: Name Collection Type:: Clean-Voided MidstreamPerformed By: #### ADDONUAPLUS ####[address] [address] USAWBC,Pyezm9-2Wvvmmo5-1Aku [facility] Physician GroupComment on above: Order Comment: Name Collection Type:: Clean-Voided MidstreamPerformed By: #### ADDONUAPLUS ####[address] [address] USAECG 12 lead ECGon 29-63-5848FIV 12 lead ECGMER[facility] [place] [address] [place] [address] Electrocardiograph Report Signed Patient: Marleni Dennis MR#: [id number] : 1950 Acct:[id number] Age/Sex: 74 / F ADM Date: 04/08/25 Loc: 4 Room: [address] [place] [address] Type: ADM IN Attending Dr: Rajiv Trejo [...] fascicular block Confirmed by Evette Mari MD ([id number]) on 04/09/2025 7:24:05 AM Referred By: Electronically Signed By: Evette Mari MD Transcribed By: MUS Signed By Evette Mari MD 03/19 12/10 0724[facility] Physician GroupEosinophils [#/volume] in Blood by Automated countOrdered By: Sohail Figueroa on 60-62-8493Zdnczhrtkld (Bld) [#/Vol] 0.1 10*3/uLNormal0.0-0.45Tuscarawas HospitalComment on above: Performed By: #### PT, PTT, LIPASE, CMP, HS TROP, CBC #### [facility] [address] [place] [address] USAEosinophils/100 leukocytes in Blood by Automated count Ordered By: Sohail Figueroa on 05-39-4948Dxibosdqvtf/100 WBC (Bld)2.6 %Normal. [facility]carawas HospitalComment on above:Performed By: #### PT, PTT, LIPASE, CMP, HS TROP, CBC #### [facility] [address] [place] [address] USAEpithelial cells.squamous [#/area] in Urine sediment by Automated countOrdered By: Sohail Figueroa on 10-93-7747Wkxcfgfbhg cells.squamous Auto (Urine sed) [#/Area]N/AFDiley Ridge Medical CenterErythrocyte distribution width [Ratio] by Automated countOrdered By: Sohail Figueroa on 64-71-3298Iwkiogwyyzo distribution width (RBC) [Ratio]16.0 %High11.9-15.3 [facility]awas HospitalComment on above:Performed By: #### PT, PTT, LIPASE, CMP, HS TROP, CBC #### [facility] [address] [place] [id number] USAErythrocytes [#/area] in Urine sediment by Automated count Ordered By: Sohail Figueroa on 33-36-6069TOR Auto (Urine sed) [#/Area]1-2 [HPF]0-4 Tuscarawas HospitalErythrocytes [#/volume] in Blood by Automated countOrdered By: Sohail Figueroa on 33-71-6501SWA (Bld) [#/Vol]3.34 10*6/uLLow 3.60-5.00Tuscarawas HospitalComment on above:Performed By: #### PT, PTT, LIPASE, CMP, HS TROP, CBC #### [facility] [address] [place] [address] USAGlucose [Mass/volume] in Serum or PlasmaOrdered By: Sohail Figueroa on 25-44-7136Wvweubo [Mass/Vol]110 mg/hKXsus09-790AlqsdwhclTuscarawas HospitalComment on above:ADA recommended reference rangeRandom Glucose [...] PTT, LIPASE, CMP, HS TROP, CBC #### [facility] [address] [place] [address] USAGlucose [Mass/volume] in Urine by Test stripOrdered By: Sohail Figueroa on 62-12-1783Nyusjfb Test strip (U) [Mass/Vol]Normal mg/dLNormal [facility]carawas HospitalHematocrit [Volume Fraction] of Blood by Automated countOrdered By: Sohail Figueroa on 05-89-4872Dzbjmvgssg (Bld) [Volume fraction]29.5 %Low34.0-46.4FDiley Ridge Medical CenterComment on above: Performed By: #### PT, PTT, LIPASE, CMP, HS TROP, CBC #### [facility] [address] [place] [id number] USAHemoglobin Test strip Ql (U)Ordered By: Sohail Figueroa on 03-69-2321Bsjxxuupgj Ql (U)NegativeNegativeTuscarawas Hospital Hemoglobin [Mass/volume] in BloodOrdered By: Sohail Figueroa on 04-08-2025 Hemoglobin (Bld) [Mass/Vol]10.0 g/dLLow11.8-15.4FDiley Ridge Medical CenterComment on above:Performed By: #### PT, PTT, LIPASE, CMP, HS TROP, CBC #### [facility] [address] [place] [address] USAHyaline casts [#/area] in Urine sediment by Automated countOrdered By: Sohail Figueroa on 13-03-4729Woaolxp casts Auto (Urine sed) [#/Area]None [LPF]0-8Tuscarawas HospitalINR in Platelet poor plasma by Coagulation assayOrdered By: Sohail Figueroa on 20-12-3934CHD Coag (PPP) [Relative time]1.4 {INR}NormalTuscarawas HospitalComment on above: INR Therapeutic Range A) [...] PTT, LIPASE, CMP, HS TROP, CBC #### [facility] [address] [place] [id number] USAKetones [Presence] in Urine by Test stripOrdered By: Sohail Figueroa on 90-90-1907Fgjbuka Ql (U)NegativeCleveland Clinic Akron General Lodi HospitalComment on above:Order Comment: Name Collection Type:: Clean- Voided MidstreamPerformed By: #### ADDONUAPLUS ####[facility] [place] [address] USALeukocyte esterase [Presence] in Urine by Test stripOrdered By: Sohail Figueroa on 56-83-1584Kyfsjqomd esterase Test strip Ql (U)UC Medical CenterComment on above:Order Comment: Name Collection Type:: Clean-Voided MidstreamPerformed By: #### ADDONUAPLUS ####[facility] [place] [id number] USALeukocytes [#/area] in Urine sediment by Automated countOrdered By: Sohail Figueroa on 78-11-2496RSI Auto (Urine sed) [#/Area]1-2 [HPF]0-4FDiley Ridge Medical CenterLeukocytes [#/volume] corrected for nucleated erythrocytes in Blood by Automated counOrdered By: Sohail Figueroa on 70-16-0014NYT corrected for nucl RBC Auto (Bld) [#/Vol]4.4 10*3/uL3.8-11.6FDiley Ridge Medical CenterLeukocytes [#/volume] in Blood by Automated countOrdered By: Sohail Figueroa on 57-93-4200TSJ (Bld) [#/Vol]4.4 10*3/uLNormal3.8-11.6FDiley Ridge Medical CenterComment on above:Performed By: #### PT, PTT, LIPASE, CMP, HS TROP, CBC #### [facility] [address] [place] [address] USALipase [Enzymatic activity/volume] in Serum or Plasma Ordered By: Sohail Figueroa on 65-29-4638Ijfnxl [Catalytic activity/Vol]110.0 U/L High11.0-82.0Tuscarawas HospitalComment on above:Result Comment: PERFORMED BY: [place] [address] PATHOLOGIST [employer] PLAYER ELIZABETH MOREL M.D.Performed By: #### PT, PTT, LIPASE, CMP, HS TROP, CBC #### [facility] [address] [place] [address] USALymphocytes [#/volume] in Blood by Automated countOrdered By: Sohail Figueroa on 75-24-8955Jbzestnhxho (Bld) [#/Vol]1.0 10*3/uLNormal1.00-4.8 [facility] HospitalComment on above:Performed By: #### PT, PTT, LIPASE, CMP, HS TROP, CBC #### [facility] [address] [place] [address] USALymphocytes/100 leukocytes in Blood by Automated count Ordered By: Sohail Figueroa on 76-61-2398Zutwbkriqwn/100 WBC (Bld)23.3 %Normal. [facility]carawas HospitalComment on above:Performed By: #### PT, PTT, LIPASE, CMP, HS TROP, CBC #### [facility] [address] [place] [address] [Entitic mass] by Automated countOrdered By: Sohail Figueroa on 19-57-1141UMJ (RBC) [Entitic mass]30.1 ilZiisuc04.7-34.3FDiley Ridge Medical CenterComment on above:Performed By: #### PT, PTT, LIPASE, CMP, HS TROP, CBC #### [facility] [address] [place] [address] Auto (RBC) [Mass/Vol]Ordered By: Sohail Figueroa on 61-22-0352ZRJJ (RBC) [Mass/Vol]34.0 g/dL32.0-35.0Tuscarawas HospitalMCV [Entitic volume] by Automated countOrdered By: Sohail Figueroa on 65-91-9310EAO (RBC) [Entitic vol]88.4 nUAfbpyi39-640QobiifnewTuscarawas HospitalComment on above:Performed By: #### PT, PTT, LIPASE, CMP, HS TROP, CBC #### [facility] [address] [place] [address] USAMonocyte distribution width [Entitic volume] in Blood by AutomatedOrdered By: Sohail Figueroa on 43-80-5244Potsoxov distribution width Auto (Bld) [Entitic vol]17.55 %0.00-20.00Tuscarawas HospitalMonocytes [#/volume] in Blood by Automated countOrdered By: Sohail Figueroa on 04-08-2025 Monocytes (Bld) [#/Vol]0.4 10*3/uLNormal0.0-0.8[facility] Comment on above:Performed By: #### PT, PTT, LIPASE, CMP, HS TROP, CBC #### [facility] [address] [place] [address] USAMonocytes/100 leukocytes in Blood by Automated count Ordered By: Sohail Figueroa on 91-32-8007Milsgzktb/100 WBC (Bld)10.0 %Normal. [facility]awas HospitalComment on above:Performed By: #### PT, PTT, LIPASE, CMP, HS TROP, CBC #### [place] [address] USANeutrophils [#/volume] in Blood by Automated countOrdered By: Sohail Figueroa on 81-28-7493Znbksuqvzqc (Bld) [#/Vol]2.8 10*3/uLNormal1.8-7.7 [facility] HospitalComment on above:Performed By: #### PT, PTT, LIPASE, CMP, HS TROP, CBC #### [facility] [address] [place] [id number] USANeutrophils/100 leukocytes in Blood by Automated count Ordered By: Sohail Figueroa on 97-56-8837Bghqglzhacv/100 WBC (Bld)63.1 %Normal. [facility]carawas HospitalComment on above:Performed By: #### PT, PTT, LIPASE, CMP, HS TROP, CBC #### [facility] [address] [place] [id number] USANitrite Test strip Ql (U)Ordered By: Sohail Figueroa on 74-28-6866Njoxsxm Ql (U)NegativeNegativeTuscarawas HospitalNo Panel InformationOrdered By: Sohail Figueroa on 33-39-9096Ahzvfeide GFR (CKD-EPI) 13.433 mL/MinTuscarawas HospitalPharmacy Creatinine Clearance (Chem12.34Tuscarawas HospitalNucleated erythrocytes [Presence] in Blood by Automated countOrdered By: Sohail Figueroa on 89-16-0102Sjaqhzego RBC Auto Ql (Bld)0.1 /100{WBC}0-0.5FDiley Ridge Medical CenterPartial Thromboplastin Timeon 44-87-9289jDQR Coag (Bld) [Time]31.6 kMluriq82.1-36.5The [facility] Physician GroupComment on above:Result Comment: A hematocrit value greater than 55% may lead to inaccurate results in coagulation testing. Patients having hematocrit values >55% require a special collection tube for coagulation studies. Please contact the laboratory at [phone] for redraw instructions. PERFORMED BY: [place] [address] PATHOLOGIST [employer] PLAYER ELIZABETH MOREL M.D.Performed By: #### PT, PTT, LIPASE, CMP, HS TROP, CBC #### [place] [id number] USAPlatelet mean volume [Entitic volume] in Blood by Automated countOrdered By: Sohail Figueroa on 13-27-8830Umhabpuj mean volume (Bld) [Entitic vol]9.5 fLNormal6.3-10.7FDiley Ridge Medical CenterComment on above:Performed By: #### PT, PTT, LIPASE, CMP, HS TROP, CBC #### [place] [id number] USAPlatelets [#/volume] in Blood by Automated countOrdered By: Sohail Figueroa on 17-36-3461Eekopucxz (Bld) [#/Vol]211 10*3/rIJcejhw534-446 [facility] HospitalComment on above:Performed By: #### PT, PTT, LIPASE, CMP, HS TROP, CBC #### [facility] [address] [place] [id number] USAPotassium [Moles/volume] in Serum or PlasmaOrdered By: Sohail Figueroa on 69-77-7003Gsiyciibg [Moles/Vol]4.3 mmol/LNormal3.5-5.1FDiley Ridge Medical CenterComment on above:Performed By: #### PT, PTT, LIPASE, CMP, HS TROP, CBC #### [facility] [address] [place] [id number] USAProtein [Mass/volume] in Serum or PlasmaOrdered By: Sohail Figueroa on 19-41-8718Hmphoyf [Mass/Vol]7.1 g/dLNormal6.4-8.9Tuscarawas HospitalComment on above:Performed By: #### PT, PTT, LIPASE, CMP, HS TROP, CBC #### [facility] [address] [place] [id number] USAProtein [Mass/volume] in Urine by Test stripOrdered By: Sohail Figueroa on 15-14-1775Bfpllwg (U) [Mass/Vol]50 mg/dLNormalNegativeTuscarawas HospitalComment on above:Order Comment: Name Collection Type:: Clean-Voided MidstreamPerformed By: #### ADDONUAPLUS ####[facility] [place] [address] USAProthrombin time (PT)Ordered By: Sohail Figueroa on 04-99-8252IZ Coag (PPP) [Time]16.2 sHigh9.0-12.9Tuscarawas HospitalComment on above:A hematocrit value greater than 55% may lead to inaccurate results in coagulation testing. Patientshaving hematocrit values >55% require a special collection tube for coagulation studies. Please c ontact the laboratory at [phone] for redraw instructions.Result Comment: A hematocrit value greater than 55% may lead to inaccurate results in coagulation testing. Patients having hematocrit values >55% require a special collection tube for coagulation studies. Please contact the laboratory at [phone] for redraw instructions.Performed By: #### PT, PTT, LIPASE, CMP, HS TROP, CBC #### [facility] [address] [place] [address] USASerum globulin measurement by calculation (mass/volume) Ordered By: Sohail Figueroa on 44-63-5606Oqxsodtw (S) [Mass/Vol]3.0 g/dLNormal [facility] HospitalComment on above:Performed By: #### PT, PTT, LIPASE, CMP, HS TROP, CBC #### [facility] [address] [place] [address] USASerum or plasma albumin/globulin mass ratioOrdered By: Sohail Figueroa on 92-79-9144Lhsznpv/Globulin [Mass ratio]1.4 {ratio}Normal [facility]as HospitalComment on above:Performed By: #### PT, PTT, LIPASE, CMP, HS TROP, CBC #### [place] [address] USASerum or plasma anion gap determinationOrdered By: Sohail Figueroa on 64-29-6615Ufdgl gap [Moles/Vol]15.1 mmol/LHigh6.0-15.0Tuscarawas HospitalComment on above:Performed By: #### PT, PTT, LIPASE, CMP, HS TROP, CBC #### [facility] [address] [place] [address] USASodium [Moles/volume] in Serum or PlasmaOrdered By: Sohail Figueroa on 42-91-5969Waprzg [Moles/Vol]137 mmol/UZqsdsd163-075YdukomfupTuscarawas HospitalComment on above:Performed By: #### PT, PTT, LIPASE, CMP, HS TROP, CBC #### [facility] [address] [place] [address] USASpecific gravity Test strip (U) [Rel density]Ordered By: Sohail Figueroa on 97-60-0289Sytpdmem gravity (U) [Rel density]1.0061.001-1.030 [facility] HospitalTroponin I High Sensitivityon 04-08-2025 Troponin I High Kpfmocuscpr26Fxwn2-20Ixr [facility] Physician GroupComment on above:Result Comment: The Troponin units of report have been changed to meet the Chest Pain Accreditation requirement, element EC5.M1l2. Troponin units are changed from pg/ml to ng/L. Also, the decimal is removed and results are in whole numbers. PERFORMED BY: [address] [address] PATHOLOGIST SAXOPHONE PLAYER ELIZABETH MOREL M.D.Performed By: #### PT, PTT, LIPASE, CMP, HS TROP, CBC #### [facility] [address] [place] [address] USATroponin I.cardiac [Mass/volume] in Serum or Plasma by Detection limit <= 0.01 ng/mLOrdered By: Sohail Figueroa on 96-63-9198Tkvgminx I.cardiac DL <= 0.01 ng/mL [Mass/Vol]25 ng/LHsummersville memorial hospital0Tuscarawas HospitalComment on above:The Troponin units of report have been changed to meet the Chest Pain Accreditation requirement, element EC5.M1l2. Troponin units are changed from pg/ml to ng/L. Also, the decimal is removed and results are in whole numbers.Type and Screenon 85-02-5512DOV and Rh group Nom (Bld)Blood group AB Rh(D) positiveNoOnslow Memorial Hospital Physician GroupComment on above:Result Comment: PERFORMED BY: [address] [address] PATHOLOGIST SAXOPHONE PLAYER ELIZABETH MOREL M.D.Urea nitrogen [Mass/volume] in Serum or PlasmaOrdered By: Sohail Figueroa on 85-56-2481Wlsy nitrogen [Mass/Vol]71 mg/dLWebster County Memorial Hospital7Tuscarawas HospitalComment on above:Performed By: #### PT, PTT, LIPASE, CMP, HS TROP, CBC #### [facility] [address] [place] [address] USAUrobilinogen Test strip (U) [Mass/Vol]Ordered By: Sohail Figueroa on 43-13-2307Ajqvukrgexli (U) [Mass/Vol]Normal mg/dLNormalTuscarawas HospitalX-ray reportOrdered By: Derek Garnett on 52-15-7371Ogrxx reportThe Christ Hospital [address] [place] [address] XRay Report Signed Patient: Marleni Dennis MR#: [id number] : 1950 Acct:[id number] Age/Sex: 74 / F ADM Date: Loc: ER Room: Type: [facility] ER Attending Dr: Copies to: Sohail Figueroa [...] Garnett M.D. 04/08/2025 8:43 PM Dictation Location: [place] [address] Transcribed By: [facility] 04/08/252042 Dictated By: Derek Garnett DO 04/08/252038 Signed By: 04/08/252042 Tuscarawas HospitalXR chest 2V*on 48-57-8665IJ chest 2V*[facility] Main [address] [address] XRay Report Signed Patient: Marleni Dennis MR#: [id number] : 1950 Acct:[id number] Age/Sex: 74 / F ADM Date: 04/08/25 Loc: ER Room: Type: [facility] ER Attending Dr: Copies to: Sohail Figueroa [...] Garnett M.D. 04/08/2025 8:43 PM Dictation Location: [facility] Transcribed By: [facility] 04/08/252042 Dictated By: Derek Garnett DO 04/08/252038 Signed By: 04/08/252042[facility] Physician GroupaPTT in Platelet poor plasma by Coagulation assayOrdered By: Sohail Figueroa on 00-37-3448qCUN Coag (PPP) [Time] 31.6 s25.1-36.5FDiley Ridge Medical CenterComment on above:A hematocrit value greater than 55% may lead to inaccurate results in coagulation testing. Patientshaving hematocrit values >55% require a special collection tube for coagulation studies. Please contact the laboratory at [phone] for redraw instructions.pH of Urine by Test stripOrdered By: Sohail Figueroa on 18-74-9189yV (U)6.5 [pH]Normal5.0-9.0Tuscarawas HospitalComment on above:Order Comment: Name Collection Type:: Clean-Voided MidstreamPerformed By: #### ADDONUAPLUS ####[facility] [address] [place] [address] USACBC (INCLUDES DIFF/PLT)on 09-98-2432Djnywqtwo (Bld) [#/Vol]0.02 10*3/uL Normal0-200Quest DiagnosticsComment on above:Performed By: #### 3020, 00027, %SBCULI, 6399 #### [facility] [address] [place] [address], [address] [place] [address] S Iron Worker: Figueroa Jacques MDBasophils/100 WBC (Bld)0.5 %NormalQuest DiagnosticsComment on above:Performed By: #### 3020, 71939, %SBCULI, 6399 #### [facility] of [address], [address] [place] [address] S Iron Worker: Figueroa Jacques MDEosinophils (Bld) [#/Vol]0.121 10*3/uLNormal 15-500Quest DiagnosticsComment on above:Performed By: #### 3020, 31565, %SBCULI, 6399 #### [facility] of [address], [address] [place] [address] S Iron Worker: Figueroa ALCANTARAosinophils/100 WBC (Bld)3.1 %NormalQuest DiagnosticsComment on above:Performed By: #### 3020, 61015, %SBCULI, 6399 #### [facility] of [place] [address] S Iron Worker: Figueroa Jacques MDErythrocyte distribution width (RBC) [Ratio] 15.8 %High11.0-15.0Quest DiagnosticsComment on above:Performed By: #### 3020, 17452, %SBCULI, 6399 #### [facility] of [place] [address] S Iron Worker: Figueroa Jacques MDHematocrit (Bld) [Volume fraction]27.4 %Low 35.0-45.0Quest DiagnosticsComment on above:Performed By: #### 3020, 46102, %SBCULI, 6399 #### [facility] of [place] [address] S Iron Worker: Figueroa Jacques MDHemoglobin (Bld) [Mass/Vol]8.7 g/dLLow 11.7-15.5Quest DiagnosticsComment on above:Performed By: #### 3020, 33288, %SBCULI, 6399 #### [facility] of [address], [address] [place] [address] S Iron Worker: Figueroa Jacques MDLymphocytes (Bld) [#/Vol]0.94 10*3/uLNormal 850-3900Quest DiagnosticsComment on above:Performed By: #### 3020, 24318, %SBCULI, 6399 #### [facility] of [address], [address] [place] [address] S Iron Worker: Figueroa Jacques MDLymphocytes/100 WBC (Bld)24.1 %NormalQuest DiagnosticsComment on above:Performed By: #### 3020, 75336, %SBCULI, 6399 #### [facility] of [address], [address] [place] [address] S Iron Worker: Figueroa Jacques MDMCH (RBC) [Entitic mass]29.6 yzElrzno56.0-33.0 Quest DiagnosticsComment on above:Performed By: #### 3020, 57163, %SBCULI, 6399 #### [facility] of [address], [address] [place] [address] S Iron Worker: Figueroa CEVALLOSCHC (RBC) [Mass/Vol]31.8 g/dLLow32.0-36.0 Quest DiagnosticsComment on above:Result Comment: For adults, a slight decrease in the calculated MCHC value (in the range of 30 to 32 g/dL) is most likely not clinically significant; however, it should be interpreted with caution in correlation with other red cell parameters and the patient's clinical condition.Performed By: #### 3020, 61773, %SBCULI, 6399 #### [facility] of [address], [address] [place] [address] S Iron Worker: Figueroa Jacques MDMCV (RBC) [Entitic vol]93.2 sZLhtvbq37.0-100.0 Quest DiagnosticsComment on above:Performed By: #### 3020, 48546, %SBCULI, 6399 #### [facility] of [address], [address] [place] [address] S Iron Worker: Figueroa Jacques MDMonocytes (Bld) [#/Vol]0.507 10*3/uLNormal 200-950Quest DiagnosticsComment on above:Performed By: #### 3020, 32007, %SBCULI, 6399 #### [facility] of [address], [address] [place] [address] S Iron Worker: Figueroa Jacques MDMonocytes/100 WBC (Bld)13.0 %NormalQuest DiagnosticsComment on above:Performed By: #### 3020, 93271, %SBCULI, 6399 #### [facility] of [address], [address] [place] [address] S Iron Worker: Figueroa Praterutrophils (Bld) [#/Vol]2.313 10*3/uLNormal 1500-7800Quest DiagnosticsComment on above:Performed By: #### 3020, 48665, %SBCULI, 6399 #### [facility] of [address], [address] [place] [address] S Iron Worker: Figueroa Praterutrophils/100 WBC (Bld)59.3 %NormalQuest DiagnosticsComment on above:Performed By: #### 3020, 72378, %SBCULI, 6399 #### [facility] of [address], [address] [place] [address] S Iron Worker: Figueroa Jacques MDPlatelet mean volume (Bld) [Entitic vol]11.3 fLNormal7.5-12.5Quest DiagnosticsComment on above:Performed By: #### 3020, 76072, %SBCULI, 6399 #### [facility] of [address], [address] [place] [address] S Iron Worker: Figueroa Jacques MDPlatelets (Bld) [#/Vol]188 10*3/uLNormal 140-400Quest DiagnosticsComment on above:Performed By: #### 3020, 01050, %SBCULI, 6399 #### [facility] of [address], [address] [place] [address] S Iron Worker: Figueroa Jacques MDR ([facility]) [#/Vol]2.94 10*6/uLLow3.80-5.10Quest DiagnosticsComment on above:Performed By: #### 3020, 75324, %SBCULI, 6399 #### [facility] of [place] [address] S Iron Worker: Figueroa Jacquse MDWEILL [facility]NELL [facility] ([facility]) [#/Vol]3.9 10*3/uLNormal3.8-10.8 Quest DiagnosticsComment on above:Performed By: #### 3020, 19756, %SBCULI, 6399 #### [facility] of [place] [address] S Iron Worker: Figueroa Jacques MDCOMPREHENSIVE METABOLIC PANEL 04-04-2025 Albumin [Mass/Vol]3.6 g/dLNormal3.6-5.1Quest DiagnosticsComment on above: Performed By: #### 3020, 89993, %SBCULI, 6399 #### [facility] of [place] [address] S Iron Worker: Figueroa Jacques MDAlbumin/Globulin [Mass ratio]1.4 {ratio}Normal 1.0-2.5Quest DiagnosticsComment on above:Performed By: #### 3020, 50084, %SBCULI, 6399 #### [facility] of [place] [address] S Iron Worker: Figueroa Jacques MDALP [Catalytic activity/Vol]37 U/HLszyxo66-347 [facility] DiagnosticsComment on above:Performed By: #### 3020, 19569, %SBCULI, 6399 #### [facility] of [place] [address] S Iron Worker: Figueroa Jacques MDALT [Catalytic activity/Vol]5 U/LLow6-29Quest DiagnosticsComment on above:Performed By: #### 3020, 33065, %SBCULI, 6399 #### [facility] of [address], [address] [place] [address] S Iron Worker: Figueroa Jacques MDAST [Catalytic activity/Vol]15 U/TXabvsa80-68 Quest DiagnosticsComment on above:Performed By: #### 3020, 74652, %SBCULI, 6399 #### [facility] of [address], [address] [place] [address] S Iron Worker: Figueroa Jacques MDBilirubin [Mass/Vol]0.6 mg/dLNormal0.2-1.2 Quest DiagnosticsComment on above:Performed By: #### 3020, 74580, %SBCULI, 6399 #### [facility] of [address], [address] [place] [address] S Iron Worker: Figueroa Jacques MDCalcium [Mass/Vol]8.8 mg/dLNormal8.6-10.4Quest DiagnosticsComment on above:Performed By: #### 3020, 72114, %SBCULI, 6399 #### [facility] of [address], [address] [place] [address] S Iron Worker: Figueroa Jacques MDChloride [Moles/Vol]98 mmol/VMwjevs43-133Czwow DiagnosticsComment on above:Performed By: #### 3020, 47212, %SBCULI, 6399 #### [facility] of [address], [address] [place] [address] S Iron Worker: Figueroa Jacques MDCO2 [Moles/Vol]25 mmol/ZSzeibx48-52Ylrsz DiagnosticsComment on above:Performed By: #### 3020, 61126, %SBCULI, 6399 #### [facility] of [address], [address] [place] [address] S Iron Worker: Figueroa Jacques MDCreatinine [Mass/Vol]4.59 mg/dLHigh0.60-1.00 Quest DiagnosticsComment on above:Performed By: #### 3020, 07730, %SBCULI, 6399 #### [facility] of [address], [address] [place] [address] S Iron Worker: Figueroa Jacques MDGFR/1.73 sq M.predicted among non-blacks MDRD (S/P/Bld) [Vol rate/Area]9 mL/min/{1.73_m2}Low> OR = 60Quest DiagnosticsComment on above:Performed By: #### 3020, 48576, %SBCULI, 6399 #### [facility] of [address], [address] [place] [address] S Iron Worker: Figueroa Jacques MDGlobulin (S) [Mass/Vol]2.5 g/dLNormal1.9-3.7 Quest DiagnosticsComment on above:Performed By: #### 3020, 92963, %SBCULI, 6399 #### [facility] of [address], [address] [place] [address] S Iron Worker: Figueroa Jacques MDGlucose [Mass/Vol]96 mg/aAVmtphw36-92Acthp DiagnosticsComment on above:Result Comment: Fasting reference intervalPerformed By: #### 3020, 03545, %SBCULI, 6399 #### [facility] of [place] [address] S Iron Worker: Figueroa Jacques MDPotassium [Moles/Vol]3.8 mmol/LNormal3.5-5.3 Quest DiagnosticsComment on above:Performed By: #### 3020, 69615, %SBCULI, 6399 #### [facility] of [place] [address] S Iron Worker: Figueroa Jacques MDProtein [Mass/Vol]6.1 g/dLNormal6.1-8.1Quest DiagnosticsComment on above:Performed By: #### 3020, 75240, %SBCULI, 6399 #### [facility] of [address], [address] [place] [address] S Iron Worker: Figueroa Jacques MDSodium [Moles/Vol]136 mmol/HAvqnxy554-131Skijf DiagnosticsComment on above:Performed By: #### 3020, 18615, %SBCULI, 6399 #### [facility] [address], [address] [place] [address] S Iron Worker: Figueroa Jacques MDUrea nitrogen [Mass/Vol]69 mg/dLHigh7-25Quest DiagnosticsComment on above:Performed By: #### 3020, 14073, %SBCULI, 6399 #### [facility] [address], [address] [place] [address] S Iron Worker: Figueroa Jacques MDUrea nitrogen/Creatinine [Mass ratio]15 mg/mg Normal6-22Quest DiagnosticsComment on above:Performed By: #### 3020, 39712, %SBCULI, 6399 #### [facility] [address], [address] [place] [address] S Iron Worker: Figueroa Jacques MDCULTURE, URINE, ROUTINEon 73-28-8236ZMSKWOK, URINE, ROUTINESEE NOTENormalQuest DiagnosticsComment on above:Result Comment: CULTURE, URINE, ROUTINE Micro Number: [id number] Test Status: Final Specimen Source: Urine Specimen Quality: Adequate Result: Less than 10,000 CFU/mL of single Gram positive organism isolated. No further testing will be performed. If clinically indicated, recollection using a method to minimize contamination, with prompt transfer to Urine Culture Transport Tube, is recommended.Performed By: #### 3020, 95946, %SBCULI, 6399 #### [facility] [address], [address] [place] [address] S Iron Worker: Figueroa Jacques MDOffice Visiton 12-79-7858Cvisvx-up visit [id number] Marleni Dennis 1950 F Date Provider Department [place] 04/04/2025 [id number], [facility] Family History Problem Relation Age of Onset Coronary artery disease Mother Stroke Mother Coronary artery disease Father Ovarian cancer Sister Family Status - Relation Status Age at Mother Father Sister Level of Service:99985 [place] OFFICE/OUTPATIENT ESTABLISHED MOD MDM 30 [facility] CenterREFLEXIVE URINE CULTUREon 63-81-4112WSTXQECEC URINE CULTURENormalQuest DiagnosticsComment on above:Result Comment: CULTURE INDICATED - RESULTS TO FOLLOWPerformed By: #### 3020, 77509, %SBCULI, 6399 #### [facility] of [address], [address] [place] [address] S Iron Worker: Figueroa Jacques MDURINALYSIS, COMPLETE W/REFLEX TO CULTUREon 68-38-0406Roemdfuiji (U)CLOUDYAbnormalCLEARQuest DiagnosticsComment on above: Performed By: #### 3020, 08550, %SBCULI, 6399 #### [facility] of [place] [address] S Iron Worker: Figueroa Jacques MDBACTERIANONVirginia SEENNormalNONE SEENQuest DiagnosticsComment on above:Performed By: #### 3020, 56168, %SBCULI, 6399 #### [facility] of [address], [address] [place] [address] S Iron Worker: Figueroa Jacques MDBilirubin Ql (U)NegativeNormalNEGATIVEQuest DiagnosticsComment on above:Performed By: #### 3020, 73787, %SBCULI, 6399 #### [facility] of [place] [address] S Iron Worker: Figueroa Jacques MDColor (U)YELLOWNormalYELLOWQuest Diagnostics Comment on above:Performed By: #### 3020, 26068, %SBCULI, 6399 #### [facility] of [place] [address] [place] [address] S Iron Worker: Figueroa Jacques MDGlucose Ql (U)NegativeNormalNEGATIVEQuest DiagnosticsComment on above:Performed By: #### 3020, 77384, %SBCULI, 6399 #### [facility] of [address], [address] [place] [address] S Iron Worker: Figueroa Jacques MDHYALINE IDXM37-93HdilwgdoJHNU SEENQuest DiagnosticsComment on above:Performed By: #### 3020, 71652, %SBCULI, 6399 #### [facility] of [address], [address] [place] [address] S Iron Worker: Figueroa Jacques MDKetones Ql (U)NegativeNormalNEGATIVEQuest DiagnosticsComment on above:Performed By: #### 3020, 64837, %SBCULI, 6399 #### [facility] of [address], [address] [place] [address] S Iron Worker: Figueroa Jacques MDLeukocyte esterase Test strip Ql (U)TRACE AbnormalNEGATIVEQuest DiagnosticsComment on above:Performed By: #### 3020, 99616, %SBCULI, 6399 #### [facility] of [address], [address] [place] [address] S Iron Worker: Figueroa Jacques MDNitrite Ql (U)NegativeNormalNEGATIVEQuest DiagnosticsComment on above:Performed By: #### 3020, 31882, %SBCULI, 6399 #### [facility] of [address], [address] [place] [address] S Iron Worker: Figueroa Jacques MDNOTENormalQuest DiagnosticsComment on above: Result Comment: This urine was analyzed for the presence of WBC, RBC, bacteria, casts, and other formed elements. Only those elements seen were reported.Performed By: #### 3020, 24727, %SBCULI, 6399 #### [facility] of [address], [address] [place] [address] S Iron Worker: Figueroa Jacques MDOCCULT BLOODNegativeNormalNEGATIVEQuest DiagnosticsComment on above:Performed By: #### 3020, 10282, %SBCULI, 6399 #### [facility] of [address], [address] [place] [address] S Iron Worker: Figueroa Jacques MDpH (U)5.5 [pH]Normal5.0-8.0[facility] Comment on above:Performed By: #### 3020, 34984, %SBCULI, 6399 #### [facility] of [address], [address] [place] [address] S Iron Worker: Figueroa POWELLrotein Ql (U)3+AbnormalNEGATIVEQuest DiagnosticsComment on above:Performed By: #### 3020, 34782, %SBCULI, 6399 #### [facility] of [address], [address] [place] [address] S Iron Worker: Figueroa Jacques MDRBCNONE SEENNormal< OR = 2[facility] Comment on above:Performed By: #### 3020, 85445, %SBCULI, 6399 #### [facility] of [address], [address] [place] [address] S Iron Worker: Figueroa SILVERMANpecific gravity (U) [Rel density]1.010Normal 1.001-1.035Quest DiagnosticsComment on above:Performed By: #### 3020, 39576, %SBCULI, 6399 #### [facility] of [address], [address] [place] [address] S Iron Worker: Figueroa SILVERMANQUAMOUS EPITHELIAL CELLS0-5Normal< OR = 5 Quest DiagnosticsComment on above:Performed By: #### 3020, 38649, %SBCULI, 6399 #### [facility] of [address], [address] [place] [address] S Iron Worker: Figueroa Jacques MDWBC0-5Normal< OR = 5Quest DiagnosticsComment on above:Performed By: #### 3020, 04298, %SBCULI, 6399 #### [facility] of [address], [address] [place] [address] S Iron Worker: Figueroa Miller 81-42-219014Mxw patient is Moderately Stable - Low risk of patient condition declining or worsening The patient's goals for the shift include rest The clinical goals for the shift include vssNormalUniversAdena Fayette Medical CenterBASIC METABOLIC PANELon 75-44-3801Hqorz gap [Moles/Vol]13 mmol/LNormal7-20 [facility] HospitalComment on above:Performed By: #### [id number] ####[facility] ([facility])[address] [place] [address]Vcepuys [Mass/Vol]8.3 mg/dLLow8.6-10.3UnWilson Memorial HospitalComment on above:Performed By: #### [id number] ####[facility] ([facility])[address] [place], [place] [address]Nfalmgdf [Moles/Vol]106 mmol/YSkixiq00-511MooftewcwbWilson Memorial HospitalComment on above:Performed By: #### [id number] ####[facility] ([facility])[address] [place], [place] [address]DB0 [Moles/Vol]21 mmol/LNormal 21-31UnWilson Memorial HospitalComment on above:Performed By: #### [id number] ####[facility] ([facility])[address] [place], [place] [address]Mqtthcxwdt [Mass/Vol]3.69 mg/dLHigh0.60-1.20UnWilson Memorial HospitalComment on above:Performed By: #### [id number] ####[facility] ([facility])[address] [place], [place] [address]EDBJAQEBTD FILTRATION RATE ML/MIN/1.73 SQ M.RVCAWLEYU33.3 mL/min/1.73m*2Low>60.0UnWilson Memorial HospitalComment on above:Result Comment: [facility]???s estimated glomerular filtration rate (eGFR) will [...] anyone group of individuals.Performed By: #### [id number] ####[facility] ([facility])[address] [place], [place] [address]Vsonlwm [Mass/Vol]82 mg/gUUggllk82-022IohlcqbqduWilson Memorial HospitalComment on above:Performed By: #### [id number] ####[facility] ([facility])[address] [place], [place] [address]Ntnjxobkg [Moles/Vol]5.1 mmol/LNormal3.5-5.1UnWilson Memorial HospitalComment on above:Performed By: #### [id number] ####[facility] ([facility])[address] [place] [address] Sodium [Moles/Vol]135 mmol/VJbx121-059FpbewhozruWilson Memorial HospitalComment on above:Performed By: #### [id number] ####[facility] ([facility])[address] [place], [place] [address]Jyvk nitrogen [Mass/Vol]85 mg/dLHigh7-25UnWilson Memorial HospitalComment on above:Performed By: #### [id number] ####[facility] ([facility])[address] [place], [place] [address]YIVP NITROGEN/CREATININE (MASS RATIO) IN SER/PLAS23.0NormalUniversAdena Fayette Medical CenterComment on above: Performed By: #### [id number] ####[facility] ([facility])[address] [place], [place] [address]NBG WITH AUTO DIFFERENTIALon 96-96-8600Qsvcdillavs distribution width (RBC) [Ratio]16.5 %High11.5-15.0UnWilson Memorial HospitalComment on above:Performed By: #### [id number] #### [facility] ([facility]) [address] [place], [place] [address]DACAURZUQYU MEAN CORPUSCULAR HEMOGLOBIN CONCENTRATION (G/DL) BY YELHRHPBH46.0 g/hDEsachf22.0-35.0UnWilson Memorial HospitalComment on above:Performed By: #### [id number] #### [facility] ([facility]) [address] [place] [address]Bvsofdxyez (Bld) [Volume fraction]27.6 %Low36.0-45.0UnWilson Memorial HospitalComment on above:Performed By: #### [id number] #### [facility] ([facility]) [address] [place], [place] [address]Bhgoqmsqtn (Bld) [Mass/Vol]9.1 g/dLLow12.0-15.0UnWilson Memorial HospitalComment on above:Performed By: #### [id number] #### [facility] ([facility]) [address] [place] [address]GSEBBCHO PLATELET FRACTION %5.6 %Normal0.8-6.3UnWilson Memorial HospitalComment on above:Performed By: #### [id number] #### [facility] ([facility]) [address] [place] [address]SNS (RBC) [Entitic mass]29.5 sfKrgzhy16.0-33.0UnWilson Memorial HospitalComment on above:Performed By: #### [id number] #### [facility] ([facility]) [address] [place] [address]KBT (RBC) [Entitic vol]89.6 rQDbbbdg96.0-98.0UnWilson Memorial HospitalComment on above:Performed By: #### [id number] #### [facility] ([facility]) [address] [place], [place] [address]WWIO (PER 100 WBCS) BY AUTOMATED COUNT0.0 %Jemmid5KoxceivkstWilson Memorial HospitalComment on above:Performed By: #### [id number] #### [facility] ([facility]) [address] [place] [place] [address]YIJXXJQYI (10*3/UL) IN BLOOD AUTOMATED [id number] 10*3/uLLow 150-400UnWilson Memorial HospitalComment on above:Performed By: #### [id number] #### [facility] ([facility]) [address] [place] [address]ROU (Bld) [#/Vol]3.08 10*6/uLLow3.80-5.00UnWilson Memorial HospitalComment on above:Performed By: #### [id number] #### [facility] ([facility]) [address] [place] [address]GEV (Bld) [#/Vol]4.82 10*3/uLNormal4.00-10.60UnWilson Memorial HospitalComment on above:Performed By: #### [id number] #### [facility] ([facility]) [address] [place] [address]GSJFFW DIFFERENTIALon 74-24-1765PVIGPFRRG (10*3/UL) IN BLOOD BY CALCULATION0.04 10*3/uLNormal0.00-0.20UnWilson Memorial HospitalComment on above:Performed By: #### [id number] ####[facility] ([facility])[address] [place], [place] [address]UXKEJAHPZ/100 LEUKOCYTES IN BLOOD BY AUTOMATED COUNT0.8 %Normal0.0-1.0UnWilson Memorial HospitalComment on above: Performed By: #### [id number] ####[facility] ([facility])[address] [place], [place] [address]LMHQDPNAUTP (10*3/UL) IN BLOOD BY CALCULATION0.21 10*3/uL Normal0.00-0.50UnWilson Memorial HospitalComment on above:Performed By: #### [id number] ####[facility] ([facility])[address] [place] [address] EOSINOPHILS/100 LEUKOCYTES IN BLOOD BY AUTOMATED COUNT4.4 %Normal0.0-6.0 [facility] HospitalComment on above:Performed By: #### [id number] ####[facility] ([facility])[address] [place] [address]CKRQPWAJ GRANULOCYTES (10*3/UL) IN BLOOD BY CALCULATION0.03 10*3/uLNormal0.00-0.20 [facility] HospitalComment on above:Performed By: #### [id number] ####[facility] ([facility])[address] [place] [address]QSUKOQFZ GRANULOCYTES/100 LEUKOCYTES IN BLOOD BY AUTOMATED COUNT0.6 %Normal0.0-1.0 [facility] HospitalComment on above:Performed By: #### [id number] ####[facility] ([facility])[address] [place] [address]MEULDMZWPZU (10*3/UL) IN BLOOD BY CALCULATION1.64 10*3/uLNormal1.20-4.00UnWilson Memorial HospitalComment on above:Performed By: #### [id number] ####[facility] ([facility])[address] [place] [address]SEYGPWNQJFC/100 LEUKOCYTES IN BLOOD BY AUTOMATED COUNT34.0 %Kahwab26.0-45.0UnWilson [facility] Hospital Comment on above:Performed By: #### [id number] ####[facility] ([facility])[address] [place] [address]KFSZBWTYR (10*3/UL) IN BLOOD BY CALCUATION0.52 10*3/uLNormal0.10-1.00UnWilson Memorial HospitalComment on above: Performed By: #### [id number] ####[facility] ([facility])[address] [place] [address]JPUASLHRT/100 LEUKOCYTES IN BLOOD BY AUTOMATED COUNT10.8 % Normal5.0-12.0UnWilson Memorial HospitalComment on above:Performed By: #### [id number] ####[facility] ([facility])[address] [place] [address] NEUTROPHILS (10*3/UL) IN BLOOD BY CALCULATION2.4 10*3/uLNormal1.6-7.6UnWilson Memorial HospitalComment on above:Performed By: #### [id number] ####[facility] ([facility])[address] [place], [place] [address]TRJADVQIMDA/100 LEUKOCYTES IN BLOOD BY AUTOMATED COUNT49.4 %Nxtfeq64.0-72.0UnWilson Memorial HospitalComment on above:Performed By: #### [id number] ####[facility] ([facility])[address] [place] [id number] [id number]: Pain - Adult Goal: Verbalizes/displays adequate comfort [...] for the shift include stable vitalsNormalUniversity of Houston Methodist HospitalBASIC METABOLIC PANELon 30-18-5653Mjmfw gap [Moles/Vol]12 mmol/L Normal7-20UnWilson Memorial HospitalComment on above:Performed By: #### [id number] #### [facility] ([facility]) [address] [place], [place] [address]Qrxcczv [Mass/Vol]8.4 mg/dLLow8.6-10.3UnWilson Memorial HospitalComment on above:Performed By: #### [id number] #### [facility] ([facility]) [address] [place], [place] [address]Gkiebmcq [Moles/Vol]107 mmol/POxuexz50-631GelrfaluvrWilson Memorial HospitalComment on above:Performed By: #### [id number] #### [facility] ([facility]) [address] [place], [place] [address]KY5 [Moles/Vol]22 mmol/RKisqxw27-77CqftojduqsWilson Memorial HospitalComment on above:Performed By: #### [id number] #### [facility] ([facility]) [address] [place] [address]Jhidscjwrj [Mass/Vol]3.88 mg/dLHigh0.60-1.20UnWilson Memorial HospitalComment on above:Performed By: #### [id number] #### [facility] ([facility]) [address] [place] [address]CCIESBUOEE FILTRATION RATE ML/MIN/1.73 SQ M.KYZBQWHGY95.5 mL/min/1.73m*2Low>60.0UnWilson Memorial HospitalComment on above:Result Comment: [facility]???s estimated glomerular filtration rate (eGFR) will [...] group of individuals.Performed By: #### [id number] #### [facility] ([facility]) [address] [place] [address]Ztydkhd [Mass/Vol]88 mg/eZDdrslp80-312AbctqkpskmWilson Memorial HospitalComment on above:Performed By: #### [id number] #### [facility] ([facility]) [address] [place] [address]Jkddvuunx [Moles/Vol]5.0 mmol/LNormal3.5-5.1UnWilson Memorial HospitalComment on above:Performed By: #### [id number] #### [facility] ([facility]) [address] [place] [address]Yjozoo [Moles/Vol]136 mmol/GBadjaw676-537QfbggtfxkmWilson Memorial HospitalComment on above:Performed By: #### [id number] #### [facility] ([facility]) [address] [place] [address]Zofo nitrogen [Mass/Vol]81 mg/dLHigh7-25UnWilson Memorial HospitalComment on above:Performed By: #### [id number] #### [facility] ([facility]) [address] [place] [address]IXML NITROGEN/CREATININE (MASS RATIO) IN SER/PLAS20.9Normal [facility] HospitalComment on above:Performed By: #### [id number] #### [facility] ([facility]) [address] [place], [place] [address]ZHO WITH AUTO DIFFERENTIALon 36-33-8216Ivahddlvd (Bld) [#/Vol] 0.04 10*3/uLNormal0.00-0.20UnWilson Memorial HospitalComment on above: Performed By: #### [id number] ####[facility] ([facility])[address] [facility]ANP[facility] HIGHLAND[facility] HEALTHCARECharbelC[place], [place] [address]Xjcrrzduk/100 WBC (Bld)0.7 %Normal0.0-1.0UnWilson Memorial HospitalComment on above:Performed By: #### [id number] ####[facility] ([facility])[address] [place], [place] [address]Gyjjulrsmef (Bld) [#/Vol]0.24 10*3/uL Normal0.00-0.50UnWilson Memorial HospitalComment on above:Performed By: #### [id number] ####[facility] ([facility])[address] [place] [address] Eosinophils/100 WBC (Bld)4.4 %Normal0.0-6.0Un[facility] Hospital Comment on above:Performed By: #### [id number] ####[facility] ([facility])[address] [place], [place] [address]Ilddowttlgs distribution width (RBC) [Ratio]16.4 % High11.5-15.0UnWilson Memorial HospitalComment on above:Performed By: #### [id number] ####[facility] ([facility])[address] [place] [address] ERYTHROCYTE MEAN CORPUSCULAR HEMOGLOBIN CONCENTRATION (G/DL) BY AGNMAYVDF06.0 g/gIZegvxa43.0-35.0UnWilson Memorial HospitalComment on above:Performed By: #### [id number] ####[facility] [place] [address]Gybqdqoepv (Bld) [Volume fraction]28.8 %Low36.0-45.0UnWilson Memorial HospitalComment on above:Performed By: #### [id number] ####[facility] ([facility])[address] [place] [address]Ghgudnhtnh (Bld) [Mass/Vol]9.5 g/dLLow 12.0-15.0UnWilson Memorial HospitalComment on above:Performed By: #### [id number] ####[facility] ([facility])[address] [place], [place] [address]Axjllxmp granulocytes (Bld) [#/Vol]0.02 10*3/uLNormal0.00-0.20UnWilson Memorial HospitalComment on above:Performed By: #### [id number] ####[facility] ([facility])[address]RANP[facility] HIGHLANDS [place]ALTHCAREChar[place], [place] [address]Abwturzk granulocytes/100 WBC (Bld)0.4 %Normal0.0-1.0UnWilson Memorial HospitalComment on above:Performed By: #### [id number] ####[facility] ([facility])[address] [place] [address] Lymphocytes (Bld) [#/Vol]1.66 10*3/uLNormal1.20-4.00UnWilson Memorial HospitalComment on above:Performed By: #### [id number] ####[facility] ([facility])[address] [place], [place] [address]Vlmnurruavs/100 WBC (Bld)30.6 %Normal 20.0-45.0UnWilson Memorial HospitalComment on above:Performed By: #### [id number] ####[facility] ([facility])[address] [place] [address]MTI (RBC) [Entitic mass]29.1 gcUxjveh38.0-33.0Un[facility] Comment on above:Performed By: #### [id number] ####[facility] ([facility])[address] [place] [address]ETI (RBC) [Entitic vol]88.1 vJCgzdwt03.0-98.0 [facility] HospitalComment on above:Performed By: #### [id number] ####[facility] ([facility])[address] [place], [place] [address]Yvfrpkggj (Bld) [#/Vol]0.56 10*3/uLNormal0.10-1.00UnWilson Memorial HospitalComment on above:Performed By: #### [id number] ####[facility] ([facility])[address] [place] [address]Dxgaodxys/100 WBC (Bld)10.3 %Normal5.0-12.0UnWilson Memorial HospitalComment on above:Performed By: #### [id number] ####[facility] ([facility])[address]AN[address] HIGHLAND[place] [address]Lkvbfmunhad (Bld) [#/Vol] 2.91 10*3/uLNormal1.60-7.60UnWilson Memorial HospitalComment on above: Performed By: #### [id number] ####[facility] ([facility])[address] [place], [place] [address]Wwftmcusqip/100 WBC (Bld)53.6 %Xzzpyy36.0-72.0UnWilson Memorial HospitalComment on above:Performed By: #### [id number] ####[facility] ([facility])[address] [place] [address]DCUE (PER 100 WBCS) BY AUTOMATED COUNT0.0 %Ueyrdc9NybtkyoqcuWilson Memorial HospitalComment on above: Performed By: #### [id number] ####[facility] ([facility])[address] [place], [place] [address]EFLZZXQLZ (10*3/UL) IN BLOOD AUTOMATED ITOBC601 10*3/uLNormal 150-400UnWilson Memorial HospitalComment on above:Performed By: #### [id number] ####[facility] ([facility])[address] [place] [address]AUZ (Bld) [#/Vol]3.27 10*6/uLLow3.80-5.00[facility] HospitalComment on above:Performed By: #### [id number] ####[facility] ([facility])[address] [place] [address]YQG (Bld) [#/Vol]5.43 10*3/uLNormal4.00-10.60UnWilson Memorial HospitalComment on above:Performed By: #### [id number] ####[facility] ([facility])[address] [place] [address]SCZKZSBQWM WITH MICROSCOPICon 20-46-1846QTNWRVSXD, TOTAL PRESENCE IN URINENegativeNormalNegative [facility] HospitalComment on above:Performed By: #### [id number] #### [facility] ([facility]) [address] [place] [address]Hnxfdjf (U)ClearNormalClearOhio State East Hospital Comment on above:Performed By: #### [id number] #### [facility] ([facility]) [address] [place] [address]Eowuq (U)Light-YellowNormalColorless, Yellow, Light-Yellow [facility] HospitalComment on above:Performed By: #### [id number] #### [facility] ([facility]) [address] [place] [address]FDOBOCF (MG/DL) IN URINENormalNormalNormalUniversAdena Fayette Medical CenterComment on above:Performed By: #### [id number] #### [facility] ([facility]) [address] [place] [address]QSOABJWFXW PRESENCE IN URINENegativeNormalNegativeUnWilson Memorial HospitalComment on above:Performed By: #### [id number] #### [facility] ([facility]) [address] [place], [place] [address]Ocwfbkg Ql (U)NegativeNormalNegativeUnWilson Memorial HospitalComment on above:Performed By: #### [id number] #### [facility] ([facility]) [address] [place], [place] [address]UMOUBRNEX ESTERASE PRESENCE IN URINE BY TEST STRIPNegativeNormal NegativeUnWilson Memorial HospitalComment on above:Performed By: #### [id number] #### [facility] ([facility]) [address] [place], [place] [address]XRHRETQ PRESENCE IN URINENegativeNormalNegativeUnWilson Memorial HospitalComment on above:Performed By: #### [id number] #### [facility] ([facility]) [address] [place], [place] [address]pO (U)6.0 [pH]Normal5.0-8.0Un[facility] Comment on above:Performed By: #### [id number] #### [facility] ([facility]) [address] [place], [place] [address]Wcwuoww (U) [Mass/Vol]30 mg/dLAbnormalNegativeUnWilson Memorial HospitalComment on above:Performed By: #### [id number] #### [facility] ([facility]) [address] [place], [place] [address]DTS (#/HPF) IN URINE SEDIMENT0-2NormalNone Seen, 0-2UnWilson Memorial HospitalComment on above:Performed By: #### [id number] #### [facility] ([facility]) [address] [place], [place] [address]Unjbkeyc gravity (U) [Rel density]1.485Iygdmt1.010-1.030 [facility] HospitalComment on above:Performed By: #### [id number] #### [facility] ([facility]) [address] [place], [place] [address]OVBXSOGF EPITHELIAL CELLS (#/LPF) IN URINE SEDIMENTOccasional NormalNone Seen, Occasional, FewUnWilson Memorial HospitalComment on above:Performed By: #### [id number] #### [facility] ([facility]) [address] [facility], [place] [address]NMYDBDSQWIQO (MG/DL) IN URINENormalNormalNormalUniversAdena Fayette Medical CenterComment on above:Performed By: #### [id number] #### [facility] ([facility]) [address] [facility], [place] [address]HBC (LEUKOCYTE) (#/HPF) IN URINE SEDIMENT0-2NormalNone Seen, 0-2 [facility] HospitalComment on above:Performed By: #### [id number] #### [facility] ([facility]) [address], [place] [address]ck 09-38-780586Bzi patient is Moderately Stable - Low risk [...] transferring and ambulating with or without assistive devicesNoalUniSt. John of God HospitalBASIC METABOLIC PANEL on 35-63-9636Jbpdp gap [Moles/Vol]12 mmol/LNormal7-20UnWilson Memorial HospitalComment on above:Performed By: #### [id number] #### [facility] ([facility]) [address] [place], [place] [address]Wrzyqde [Mass/Vol]8.7 mg/dLNormal8.6-10.3UnWilson Memorial HospitalComment on above:Performed By: #### [id number] #### [facility] ([facility]) [address] [place], [place] [address]Qxjwbjhm [Moles/Vol]106 mmol/DTexsnp94-270OhezoaoctuWilson Memorial HospitalComment on above:Performed By: #### [id number] #### [facility] ([facility]) [address] [place], [place] [address]CK7 [Moles/Vol]22 mmol/KIsgdhc72-33YdcvikgclvWilson Memorial HospitalComment on above:Performed By: #### [id number] #### [facility] ([facility]) [address] [place], [place] [address]Ssvempuhdy [Mass/Vol]3.69 mg/dLHigh0.60-1.20UnWilson Memorial HospitalComment on above:Performed By: #### [id number] #### [facility] ([facility]) [address] [place], [place] [address]DSDRDVZFQI FILTRATION RATE ML/MIN/1.73 SQ M.ZBKOQIQGH70.3 mL/min/1.73m*2Low>60.0UnWilson Memorial HospitalComment on above:Result Comment: [facility]???s estimated glomerular filtration rate (eGFR) will [...] affect anyone group of individuals.Performed By: #### [id number] #### [facility] ([facility]) [address] [place], [place] [address]Nllrddu [Mass/Vol]85 mg/uXPfntdf27-944ZqicbhljmeWilson Memorial HospitalComment on above:Performed By: #### [id number] #### [facility] ([facility]) [address] [place] [address]Kohqcwsbi [Moles/Vol]5.1 mmol/LNormal3.5-5.1UnWilson Memorial HospitalComment on above:Performed By: #### [id number] #### [facility] ([facility]) [address] [place] [address]Vwhqru [Moles/Vol]135 mmol/HWwi268-812GejmwhfjsdWilson Memorial HospitalComment on above:Performed By: #### [id number] #### [facility] ([facility]) [address] [place] [address]Drfr nitrogen [Mass/Vol]68 mg/dLHigh7-25UnWilson Memorial HospitalComment on above:Performed By: #### [id number] #### [facility] ([facility]) [address] [place], [place] [address]CJZY NITROGEN/CREATININE (MASS RATIO) IN SER/PLAS18.4Normal [facility] HospitalComment on above:Performed By: #### [id number] #### [facility] ([facility]) [address] [place] [address]YKQ WITH AUTO DIFFERENTIALon 03-92-2867Ksscrssrc (Bld) [#/Vol] 0.04 10*3/uLNormal0.00-0.20UnWilson Memorial HospitalComment on above: Performed By: #### [id number] #### [facility] ([facility]) [address] [place] [address]Xdoejbkrp/100 WBC (Bld)0.7 %Normal0.0-1.0UnWilson Memorial HospitalComment on above:Performed By: #### [id number] #### [facility] ([facility]) [address] [place], [place] [address]Tzgoqlavnny (Bld) [#/Vol]0.27 10*3/uLNormal0.00-0.50UnWilson Memorial HospitalComment on above:Performed By: #### [id number] #### [facility] ([facility]) [address] [place] [address]Vkejacokxfs/100 WBC (Bld)4.9 %Normal0.0-6.0UnWilson Memorial HospitalComment on above:Performed By: #### [id number] #### [facility] ([facility]) [address] [place] [address]Omcpehxiksj distribution width (RBC) [Ratio]16.4 %High11.5-15.0 [facility] HospitalComment on above:Performed By: #### [id number] #### [facility] ([facility]) [address] [place] [address]ZDHXIOBGOOU MEAN CORPUSCULAR HEMOGLOBIN CONCENTRATION (G/DL) BY XQWAOAPBZ18.5 g/cTDbuknh66.0-35.0UnWilson Memorial HospitalComment on above:Performed By: #### [id number] #### [facility] ([facility]) [address] [place] [address]Hesaywclym (Bld) [Volume fraction]29.5 %Low36.0-45.0UnWilson Memorial HospitalComment on above:Performed By: #### [id number] #### [facility] ([facility]) [address] [place] [address]Gapqyywvtv (Bld) [Mass/Vol]9.6 g/dLLow12.0-15.0UnWilson Memorial HospitalComment on above:Performed By: #### [id number] #### [facility] ([facility]) [address] [place] [address]Yicfznjw granulocytes (Bld) [#/Vol]0.02 10*3/uLNormal0.00-0.20 [facility] HospitalComment on above:Performed By: #### [id number] #### [facility] ([facility]) [address] [place] [address]Xwdmiiyw granulocytes/100 WBC (Bld)0.4 %Normal0.0-1.0UnWilson Memorial HospitalComment on above:Performed By: #### [id number] #### [facility] ([facility]) [address] [place] [address]Apotqvmdydh (Bld) [#/Vol]1.76 10*3/uLNormal1.20-4.00UnWilson Memorial HospitalComment on above:Performed By: #### [id number] #### [facility] ([facility]) [address] [place] [address]Awvrsqsfqdg/100 WBC (Bld)32.1 %Weihet04.0-45.0UnWilson Memorial HospitalComment on above:Performed By: #### [id number] #### [facility] ([facility]) [address] [place] [address]PMM (RBC) [Entitic mass]29.3 hmBnxcsu60.0-33.0UnWilson Memorial HospitalComment on above:Performed By: #### [id number] #### [facility] ([facility]) [address] [place] [place] [address]DRS (RBC) [Entitic vol]89.9 aGZvbras25.0-98.0UnWilson Memorial HospitalComment on above:Performed By: #### [id number] #### [facility] ([facility]) [address] [place] [address]Itmotjimf (Bld) [#/Vol]0.54 10*3/uLNormal0.10-1.00UnWilson Memorial HospitalComment on above:Performed By: #### [id number] #### [facility] ([facility]) [address] [place] [address]Cpsqdsodn/100 WBC (Bld)9.8 %Normal5.0-12.0UnWilson Memorial HospitalComment on above:Performed By: #### [id number] #### [facility] ([facility]) [address] [place] [address]Qifjmfhycwp (Bld) [#/Vol]2.86 10*3/uLNormal1.60-7.60UnWilson Memorial HospitalComment on above:Performed By: #### [id number] #### [facility] ([facility]) [address] [address]Tnllavwdnbq/100 WBC (Bld)52.1 %Lpbqwh94.0-72.0UnWilson Memorial HospitalComment on above:Performed By: #### [id number] #### [facility] ([facility]) [address] [address]KOMI (PER 100 WBCS) BY AUTOMATED COUNT0.0 %Hkjrss1YltyupgczhWilson Memorial HospitalComment on above:Performed By: #### [id number] #### [facility] ([facility]) [address] [place] [address]ZQIEHJXFU (10*3/UL) IN BLOOD AUTOMATED OKCXP574 10*3/uLNormal 150-400UnWilson Memorial HospitalComment on above:Performed By: #### [id number] #### [facility] ([facility]) [address] [place] [address]LGB (Bld) [#/Vol]3.28 10*6/uLLow3.80-5.00UnWilson Memorial HospitalComment on above:Performed By: #### [id number] #### [facility] ([facility]) [address] [address]YKC (Bld) [#/Vol]5.49 10*3/uLNormal4.00-10.60UnWilson Memorial HospitalComment on above:Performed By: #### [id number] #### [facility] ([facility]) [address] [place] [address]RACK GLUCOSE METER UNSOLICITED RESULTSon 60-67-3547Agcfocj [Mass/Vol]116 mg/kUHvxb47-688XajxulruqvWilson Memorial HospitalComment on above:Order Comment: Waived Testing in the ED is performed under the ED CLIA certificate #[id number].Result Comment: [email or web address] By: #### [id number] ####[facility] ([facility])[address] [place], [place] [address]Nzthuns [Mass/Vol]130 mg/pNZbvp94-717BbvrgdmndtWilson Memorial HospitalComment on above:Order Comment: Waived Testing in the ED is performed under the ED CLIA certificate #[id number].Result Comment: [id number] By: #### [id number] #### [facility] ([facility]) [address] [place], [place] [address]Wawzkgf [Mass/Vol]114 mg/uKSkyd46-417EllwvocmdnWilson Memorial HospitalComment on above:Order Comment: Waived Testing in the ED is performed under the ED CLIA certificate #[id number].Result Comment: [email or web address] Performed By: #### [id number] ####[facility] ([facility])[address] [place], [place] [address]ko 19-98-346800Vfc patient is Moderately Stable - Low risk of patient condition declining or worsening The patient's goals for the shift include Comfort, rest The clinical goals for the shift include Stable vitals and labs, comfort, rest, safetyNormalUniversblanchard valley health system of Houston Methodist HospitalBASIC METABOLIC PANELon 55-52-4329Kppbk gap [Moles/Vol]11 mmol/LNormal7-20UnWilson Memorial HospitalComment on above:Performed By: #### [id number] #### [facility] [address] [place], [place] [address]Rsyqbzi [Mass/Vol]8.6 mg/dLNormal8.6-10.3UnWilson Memorial HospitalComment on above:Performed By: #### [id number] #### [facility] ([facility]) [address] [place], [place] [address]Ieplvwlc [Moles/Vol]106 mmol/TStdhvg44-877AxdrtpltotWilson Memorial HospitalComment on above:Performed By: #### [id number] #### [facility] ([facility]) [address] [place], [place] [address]LQ7 [Moles/Vol]23 mmol/GHqikzb20-04HghwgzhavgWilson Memorial HospitalComment on above:Performed By: #### [id number] #### [facility] ([facility]) [address] [place] [address]Ndfofgwslw [Mass/Vol]3.61 mg/dLHigh0.60-1.20UnWilson Memorial HospitalComment on above:Performed By: #### [id number] #### [facility] ([facility]) [address] [place] [address]NPSUYIVPAL FILTRATION RATE ML/MIN/1.73 SQ M.PZMLQDSYP55.6 mL/min/1.73m*2Low>60.0UnWilson Memorial HospitalComment on above:Result Comment: [facility]???s estimated glomerular filtration rate (eGFR) will [...] group of individuals.Performed By: #### [id number] #### [facility] ([facility]) [address] [place] [address]Zoecakm [Mass/Vol]91 mg/fOZgughu50-514VxnfozhdcoWilson Memorial HospitalComment on above:Performed By: #### [id number] #### [facility] ([facility]) [address] [place] [address]Xcxxvozmq [Moles/Vol]5.0 mmol/LNormal3.5-5.1UnWilson Memorial HospitalComment on above:Performed By: #### [id number] #### [facility] ([facility]) [address] [place] [address]Twkrpu [Moles/Vol]135 mmol/GMzv981-747JwjcrpabcjWilson Memorial HospitalComment on above:Performed By: #### [id number] #### [facility] ([facility]) [address] [place], [place] [address]Uymv nitrogen [Mass/Vol]61 mg/dLHigh7-25UnWilson Memorial HospitalComment on above:Performed By: #### [id number] #### [facility] ([facility]) [address] [place], [place] [address]XBAH NITROGEN/CREATININE (MASS RATIO) IN SER/PLAS16.9Normal [facility] HospitalComment on above:Performed By: #### [id number] #### [facility] ([facility]) [address] [place] [address]MAJ WITH AUTO DIFFERENTIALon 16-22-1716Pzxvagozv (Bld) [#/Vol] 0.02 10*3/uLNormal0.00-0.20UnWilson Memorial HospitalComment on above: Performed By: #### [id number] ####[facility] ([facility])[address] [place], [place] [address]Qccxyhyxz/100 WBC (Bld)0.3 %Normal0.0-1.0UnWilson Memorial HospitalComment on above:Performed By: #### [id number] ####[facility] ([facility])[address] [place], [place] [address]Oksuiiasqgc (Bld) [#/Vol]0.21 10*3/uL Normal0.00-0.50UnWilson Memorial HospitalComment on above:Performed By: #### [id number] ####[facility] ([facility])[address] [facility] [place] [address] Eosinophils/100 WBC (Bld)3.3 %Normal0.0-6.0UnWilson [facility] Hospital Comment on above:Performed By: #### [id number] ####[facility] ([facility])[address] [place], [place] [address]Thaavsnltuz distribution width (RBC) [Ratio]16.3 % High11.5-15.0UnWilson Memorial HospitalComment on above:Performed By: #### [id number] ####[facility] ([facility])[address] [place] [address] ERYTHROCYTE MEAN CORPUSCULAR HEMOGLOBIN CONCENTRATION (G/DL) BY OPSHJPRLK16.0 g/iFVdclge81.0-35.0UnWilson Memorial HospitalComment on above:Performed By: #### [id number] ####[facility] ([facility])[address] [place], [place] [address]Bovflpwgbf (Bld) [Volume fraction]29.7 %Low36.0-45.0UnWilson Memorial HospitalComment on above:Performed By: #### [id number] ####[facility] ([facility])[address] [place], [place] [address]Osytjmwvlg (Bld) [Mass/Vol]9.8 g/dLLow 12.0-15.0UnWilson Memorial HospitalComment on above:Performed By: #### [id number] ####[facility] ([facility])[address] [place], [place] [address]Mfdazvfy granulocytes (Bld) [#/Vol]0.02 10*3/uLNormal0.00-0.20UnWilson Memorial HospitalComment on above:Performed By: #### [id number] ####[facility] ([facility])[address] [place], [place] [address]Uongfqdx granulocytes/100 WBC (Bld)0.3 %Normal0.0-1.0UnWilson Memorial HospitalComment on above:Performed By: #### [id number] ####[facility] ([facility])[address] [place] [address] Lymphocytes (Bld) [#/Vol]1.61 10*3/uLNormal1.20-4.00UnWilson Memorial HospitalComment on above:Performed By: #### [id number] ####[facility] ([facility])[address] [place], [place] [address]Eokwjfrhqcm/100 WBC (Bld)25.6 %Normal 20.0-45.0UnWilson Memorial HospitalComment on above:Performed By: #### [id number] ####[facility] ([facility])[address] [place] [address]USJ (RBC) [Entitic mass]29.3 udVyabld97.0-33.0Un[facility] Hospital Comment on above:Performed By: #### [id number] ####[facility] ([facility])[address] [place], [place] [address]DTS (RBC) [Entitic vol]88.7 zBBnxdsz32.0-98.0 [facility] HospitalComment on above:Performed By: #### [id number] ####[facility] ([facility])[address] [place], [place] [address]Knccuqwol (Bld) [#/Vol]0.58 10*3/uLNormal0.10-1.00UnWilson Memorial HospitalComment on above:Performed By: #### [id number] ####[facility] ([facility])[address] [place], [place] [address]Eepwapyrm/100 WBC (Bld)9.2 %Normal5.0-12.0[facility] HospitalComment on above:Performed By: #### [id number] ####[facility] ([facility])[address] [place], [place] [address]Cssbopyrksh (Bld) [#/Vol] 3.85 10*3/uLNormal1.60-7.60UnWilson Memorial HospitalComment on above: Performed By: #### [id number] ####[facility] ([facility])[address] [place], [place] [address]Setfkmvekkh/100 WBC (Bld)61.3 %Goltvh07.0-72.0UnWilson Memorial HospitalComment on above:Performed By: #### [id number] ####[facility] ([facility])[address] [place] [address]AWIC (PER 100 WBCS) BY AUTOMATED COUNT0.0 %Fastfg8CnzfvsjyjcWilson Memorial HospitalComment on above: Performed By: #### [id number] ####[facility] ([facility])[address] [place] [address]VLNRWMNRZ (10*3/UL) IN BLOOD AUTOMATED [id number] 10*3/uLNormal 150-400UnWilson Memorial HospitalComment on above:Performed By: #### [id number] ####[facility] ([facility])[address] [facility]IL[address] [address]OGE (Bld) [#/Vol]3.35 10*6/uLLow3.80-5.00UnWilson Memorial HospitalComment on above:Performed By: #### [id number] ####[facility] ([facility])[address] [place] [address]TPW (Bld) [#/Vol]6.29 10*3/uLNormal4.00-10.60UnWilson Memorial HospitalComment on above:Performed By: #### [id number] ####[facility] ([facility])[address] [place] [address]TWVIPFLzl 03-17-2025 CONSULTdischarge planning: to Home with Home [...] for any placement from this admission [] NormalUnWilson Memorial HospitalPOCT GLUCOSE METER UNSOLICITED RESULTSon 24-77-2319Ljebrjp [Mass/Vol]121 mg/jPCpfu40-009AzrskiovqiWilson Memorial HospitalComment on above:Order Comment: Waived Testing in the ED is performed under the ED CLIA certificate #[id number].Result Comment: [email or web address] Performed By: #### [id number] #### [facility] ([facility]) [address] [place], [place] [address]Gqyimnw [Mass/Vol]148 mg/iOHqjw47-507AxeghpyxocWilson Memorial HospitalComment on above:Order Comment: Waived Testing in the ED is performed under the ED CLIA certificate #[id number].Result Comment: astoneking Performed By: #### [id number] #### [facility] ([facility]) [address] [place], [place] [address]Ixzrlfn [Mass/Vol]161 mg/nGKnxe68-342DddxbgwokoWilson Memorial HospitalComment on above:Order Comment: Waived Testing in the ED is performed under the ED CLIA certificate #[id number].Result Comment: [email or web address] Performed By: #### [id number] #### [facility] ([facility]) [address] [place], [place] [address]ILCGA METABOLIC PANELon 55-51-5039Rfhrw gap [Moles/Vol]10 mmol/L Normal7-20UnWilson Memorial HospitalComment on above:Performed By: #### [id number] ####[facility] ([facility])[address] [place], [place] [address]Jmrqosk [Mass/Vol]8.6 mg/dLNormal8.6-10.3UnWilson Memorial HospitalComment on above:Performed By: #### [id number] ####[facility] ([facility])[address] [place], [place] [address]Dyxjtjgk [Moles/Vol]106 mmol/ZBamepz59-473RxqvegwwlpWilson Memorial HospitalComment on above:Performed By: #### [id number] ####[facility] ([facility])[address] [place], [place] [address]LH4 [Moles/Vol]23 mmol/LNormal 21-31UnWilson Memorial HospitalComment on above:Performed By: #### [id number] ####[facility] ([facility])[address] [place] [address]Fhpzbmdrah [Mass/Vol]3.39 mg/dLHigh0.60-1.20UnWilson Memorial HospitalComment on above:Performed By: #### [id number] ####[facility] ([facility])[address] [place] [address]OSUMYBPGDO FILTRATION RATE ML/MIN/1.73 SQ M.QPLNBUOXE94.6 mL/min/1.73m*2Low>60.0UnWilson Memorial HospitalComment on above:Result Comment: [facility]???s estimated glomerular filtration rate (eGFR) will [...] anyone group of individuals.Performed By: #### [id number] ####[facility] ([facility])[address] [place] [address]Qmhzgpw [Mass/Vol]101 mg/dKCivm83-924ThfntpvaofWilson Memorial HospitalComment on above:Performed By: #### [id number] ####[facility] ([facility])[address] [place] [address]Dpfzickga [Moles/Vol]4.5 mmol/L Normal3.5-5.1UnWilson Memorial HospitalComment on above:Performed By: #### [id number] ####[facility] ([facility])[address] [place] [address] Sodium [Moles/Vol]134 mmol/ALxj031-140FgbkmuekmsWilson Memorial HospitalComment on above:Performed By: #### [id number] ####[facility] ([facility])[address] [place] [address]Taew nitrogen [Mass/Vol]53 mg/dLHigh7-25UnWilson Memorial HospitalComment on above:Performed By: #### [id number] ####[facility] ([facility])[address]RANP[address] HIGHLAND[place]ARE[place] [address]YIKO NITROGEN/CREATININE (MASS RATIO) IN SER/PLAS15.6NormalUniversAdena Fayette Medical CenterComment on above: Performed By: #### [id number] ####[facility] ([facility])[address] KHALILP[address] HIGHLAND[place]ARE[place] [address]YCJ WITH AUTO DIFFERENTIALon 08-03-4720Rzwluoojf (Bld) [#/Vol]0.03 10*3/uLNormal0.00-0.20UnWilson Memorial HospitalComment on above: Performed By: #### [id number] #### [facility] ([facility]) [address] [place] [place] [address]Rvsmxjgmo/100 WBC (Bld)0.6 %Normal0.0-1.0UnWilson Memorial HospitalComment on above:Performed By: #### [id number] #### [facility] ([facility]) [address] [place] [address]Kqwyfcpyjki (Bld) [#/Vol]0.21 10*3/uLNormal0.00-0.50UnWilson Memorial HospitalComment on above:Performed By: #### [id number] #### [facility] ([facility]) [address] [place] [address]Jvynxsmzenb/100 WBC (Bld)4.0 %Normal0.0-6.0UnWilson Memorial HospitalComment on above:Performed By: #### [id number] #### [facility] ([facility]) [address], [place] [address]Vokwsqdidbd distribution width (RBC) [Ratio]16.3 %High11.5-15.0 [facility] HospitalComment on above:Performed By: #### [id number] #### [facility] ([facility]) [address] [place] [address]EXFCTNTVGHY MEAN CORPUSCULAR HEMOGLOBIN CONCENTRATION (G/DL) BY PCJGJIMGI87.9 g/bRVocqbu78.0-35.0UnWilson Memorial HospitalComment on above:Performed By: #### [id number] #### [facility] ([facility]) [address] [place] [address]Vnbezpgaik (Bld) [Volume fraction]31.6 %Low36.0-45.0UnWilson Memorial HospitalComment on above:Performed By: #### [id number] #### [facility] ([facility]) [address] [place] [address]Vdrclhqnsz (Bld) [Mass/Vol]10.4 g/dLLow12.0-15.0UnWilson Memorial HospitalComment on above:Performed By: #### [id number] #### [facility] ([facility]) [address] [place] [address]Rymfiiey granulocytes (Bld) [#/Vol]0.01 10*3/uLNormal0.00-0.20 [facility] HospitalComment on above:Performed By: #### [id number] #### [facility] (AKER) [address] [place] [address]Gllcelch granulocytes/100 WBC (Bld)0.2 %Normal0.0-1.0UnWilson Memorial HospitalComment on above:Performed By: #### [id number] #### [facility] ([facility]) [address] [place] [address]Kqxndmbaabq (Bld) [#/Vol]1.52 10*3/uLNormal1.20-4.00UnWilson Memorial HospitalComment on above:Performed By: #### [id number] #### [facility] ([facility]) [address] [place] [address]Rhuuoruwric/100 WBC (Bld)28.8 %Wvcwqo21.0-45.0UnWilson Memorial HospitalComment on above:Performed By: #### [id number] #### [facility] ([facility]) [address] [place] [address]OFW (RBC) [Entitic mass]29.5 hzTkdxyn40.0-33.0UnWilson Memorial HospitalComment on above:Performed By: #### [id number] #### [facility] ([facility]) [address] [place] [address]QSL (RBC) [Entitic vol]89.5 gISuffdj11.0-98.0UnWilson Memorial HospitalComment on above:Performed By: #### [id number] #### [facility] ([facility]) [address] [place] [address]Xdxswedqe (Bld) [#/Vol]0.53 10*3/uLNormal0.10-1.00UnWilson Memorial HospitalComment on above:Performed By: #### [id number] #### [facility] ([facility]) [address] [place] [address]Frmhfuwji/100 WBC (Bld)10.0 %Normal5.0-12.0UnWilson Memorial HospitalComment on above:Performed By: #### [id number] #### [facility] ([facility]) [address] [place] [address]Ymardcnfrkj (Bld) [#/Vol]2.98 10*3/uLNormal1.60-7.60UnWilson Memorial HospitalComment on above:Performed By: #### [id number] #### [facility] ([facility]) [address] [place] [address]Cprvtwcxifc/100 WBC (Bld)56.4 %Xlldhm23.0-72.0UnWilson Memorial HospitalComment on above:Performed By: #### [id number] #### [facility] ([facility]) [address] [place] [address]RWOF (PER 100 WBCS) BY AUTOMATED COUNT0.0 %Ueilze2LduzrhkgdpWilson Memorial HospitalComment on above:Performed By: #### [id number] #### [facility] ([facility]) [address] [place] [address]ODQCPFMWL (10*3/UL) IN BLOOD AUTOMATED [id number] 10*3/uLNormal 150-400UnWilson Memorial HospitalComment on above:Performed By: #### [id number] #### [facility] ([facility]) [address] [place] [address]WLM (Bld) [#/Vol]3.53 10*6/uLLow3.80-5.00UnWilson Memorial HospitalComment on above:Performed By: #### [id number] #### [facility] ([facility]) [address] [place] [address]BYM (Bld) [#/Vol]5.28 10*3/uLNormal4.00-10.60UnWilson Memorial HospitalComment on above:Performed By: #### [id number] #### [facility] ([facility]) [address] [place], [place] [address]BGYJ GLUCOSE METER UNSOLICITED RESULTSon 92-71-5315Getgsav [Mass/Vol]102 mg/rAPrxfpr40-862YzhdqyppemWilson Memorial HospitalComment on above:Order Comment: Waived Testing in the ED is performed under the ED CLIA certificate #[id number].Result Comment: [email or web address] By: #### [id number] ####[facility] ([facility])[address] [place] [address]Vdbstvb [Mass/Vol]95 mg/bVYungvx48-171SfmbjyzqoaWilson Memorial HospitalComment on above:Order Comment: Waived Testing in the ED is performed under the ED CLIA certificate #[id number].Result Comment: astonekingPerformed By: #### [id number] #### [facility] ([facility]) [address] [place], [place] [address]Vxyvoze [Mass/Vol]130 mg/rVRbbg24-481YrzfrudiziWilson Memorial HospitalComment on above:Order Comment: Waived Testing in the ED is performed under the ED CLIA certificate #[id number].Result Comment: astoneking Performed By: #### [id number] ####[facility] ([facility])[address] [place], [place] [address]Obpabzk [Mass/Vol]102 mg/bGClevwx64-069OtnbjevjzuWilson Memorial HospitalComment on above:Order Comment: Waived Testing in the ED is performed under the ED CLIA certificate #[id number].Result Comment: astoneking Performed By: #### [id number] ####[facility] ([facility])[address] [place], [place] [address]JLFPT METABOLIC PANELon 45-69-2008Mfhat gap [Moles/Vol]10 mmol/LNormal7-20UnWilson Memorial HospitalComment on above:Performed By: #### [id number] #### [facility] ([facility]) [address] [place], [place] [address]Yjrktzi [Mass/Vol]8.9 mg/dLNormal8.6-10.3UnWilson Memorial HospitalComment on above:Performed By: #### [id number] #### [facility] ([facility]) [address] [place], [place] [address]Oqunjrdy [Moles/Vol]104 mmol/ELpyunn33-895KjjoxjobvsWilson Memorial HospitalComment on above:Performed By: #### [id number] #### [facility] ([facility]) [address] [place], [place] [address]FP5 [Moles/Vol]24 mmol/YAurvbq74-54OcnqepijldWilson Memorial HospitalComment on above:Performed By: #### [id number] #### [facility] ([facility]) [address] [place], [place] [address]Hmllmujork [Mass/Vol]3.21 mg/dLHigh0.60-1.20UnWilson Memorial HospitalComment on above:Performed By: #### [id number] #### [facility] ([facility]) [address] [place], [place] [address]SOPGKYLFFX FILTRATION RATE ML/MIN/1.73 SQ M.GQGRNDMCQ25.5 mL/min/1.73m*2Low>60.0UnWilson Memorial HospitalComment on above:Result Comment: [facility]???s estimated glomerular filtration rate (eGFR) will [...] group of individuals.Performed By: #### [id number] #### [facility] ([facility]) [address] [place], [place] [address]Utrbvrw [Mass/Vol]103 mg/rKCgir31-874ZakdgwgpmaWilson Memorial HospitalComment on above:Performed By: #### [id number] #### [facility] ([facility]) [address] [place], [place] [address]Eedsdggwx [Moles/Vol]4.7 mmol/LNormal3.5-5.1UnWilson Memorial HospitalComment on above:Performed By: #### [id number] #### [facility] ([facility]) [address] [facility], [place] [address]Giknbi [Moles/Vol]133 mmol/DItb772-944PxvutzsarqWilson Memorial HospitalComment on above:Performed By: #### [id number] #### [facility] ([facility]) [address] [place], [place] [address]Rybq nitrogen [Mass/Vol]45 mg/dLHigh7-25UnWilson Memorial HospitalComment on above:Performed By: #### [id number] #### [facility] ([facility]) [address] [facility] [place] [place], [place] [address]WFHZ NITROGEN/CREATININE (MASS RATIO) IN SER/PLAS14.0Normal [facility] HospitalComment on above:Performed By: #### [id number] #### [facility] ([facility]) [address] [place], [place] [address]EQF WITH AUTO DIFFERENTIALon 23-41-5172Qddmghcfo (Bld) [#/Vol] 0.05 10*3/uLNormal0.00-0.20UnWilson Memorial HospitalComment on above: Performed By: #### [id number] #### [facility] ([facility]) [address] [place] [address]Dwjrhjdya/100 WBC (Bld)0.8 %Normal0.0-1.0UnWilson Memorial HospitalComment on above:Performed By: #### [id number] #### [facility] ([facility]) [address] [place] [address]Mlvcoqfoenl (Bld) [#/Vol]0.26 10*3/uLNormal0.00-0.50UnWilson Memorial HospitalComment on above:Performed By: #### [id number] #### [facility] ([facility]) [address] [place] [address]Gzlfchgbvlf/100 WBC (Bld)4.1 %Normal0.0-6.0UnWilson Memorial HospitalComment on above:Performed By: #### [id number] #### [facility] ([facility]) [address] [place] [place], [place] [address]Dwvzsywfxft distribution width (RBC) [Ratio]16.1 %High11.5-15.0 [facility] HospitalComment on above:Performed By: #### [id number] #### [facility] ([facility]) [address] [place], [place] [address]VOAORWSJVMC MEAN CORPUSCULAR HEMOGLOBIN CONCENTRATION (G/DL) BY ZIBSRPZUR87.8 g/zTFabfyb95.0-35.0UnWilson Memorial HospitalComment on above:Performed By: #### [id number] #### [facility] ([facility]) [address] [place], [place] [address]Whhrlownbj (Bld) [Volume fraction]34.5 %Low36.0-45.0UnWilson Memorial HospitalComment on above:Performed By: #### [id number] #### [facility] ([facility]) [address] [place], [place] [address]Qgcqtzzfrq (Bld) [Mass/Vol]11.3 g/dLLow12.0-15.0UnWilson Memorial HospitalComment on above:Performed By: #### [id number] #### [facility] ([facility]) [address] [place] [address]Jwgarhnk granulocytes (Bld) [#/Vol]0.02 10*3/uLNormal0.00-0.20 [facility] HospitalComment on above:Performed By: #### [id number] #### [facility] ([facility]) [address], [place] [address]Wtbvusfz granulocytes/100 WBC (Bld)0.3 %Normal0.0-1.0UnWilson Memorial HospitalComment on above:Performed By: #### [id number] #### [facility] ([facility]) [address], [place] [address]Ketelmjyekm (Bld) [#/Vol]1.80 10*3/uLNormal1.20-4.00UnWilson Memorial HospitalComment on above:Performed By: #### [id number] #### [facility] ([facility]) [address] [place], [place] [address]Yrwpghfsohw/100 WBC (Bld)28.3 %Zeokpb52.0-45.0UnWilson Memorial HospitalComment on above:Performed By: #### [id number] #### [facility] ([facility]) [address] [facility] [place], [place] [address]KEO (RBC) [Entitic mass]29.0 zvLmzdba40.0-33.0UnWilson Memorial HospitalComment on above:Performed By: #### [id number] #### [facility] ([facility]) [address] [place] [place], [place] [address]BHK (RBC) [Entitic vol]88.5 eAFnsiay46.0-98.0UnWilson Memorial HospitalComment on above:Performed By: #### [id number] #### [facility] ([facility]) [address] [place] [place] [address]Dvvolxyaf (Bld) [#/Vol]0.67 10*3/uLNormal0.10-1.00UnWilson Memorial HospitalComment on above:Performed By: #### [id number] #### [facility] ([facility]) [address] [place] [place] [address]Bgkqkuosq/100 WBC (Bld)10.5 %Normal5.0-12.0UnWilson Memorial HospitalComment on above:Performed By: #### [id number] #### [facility] ([facility]) [address] [place] [address]Oajrsbuskhi (Bld) [#/Vol]3.57 10*3/uLNormal1.60-7.60UnWilson Memorial HospitalComment on above:Performed By: #### [id number] #### [facility] ([facility]) [address] [place] [place] [address]Palivwvaqor/100 WBC (Bld)56.0 %Fahduh69.0-72.0UnWilson Memorial HospitalComment on above:Performed By: #### [id number] #### [facility] ([facility]) [address] [place] [place], [place] [address]AFMN (PER 100 WBCS) BY AUTOMATED COUNT0.0 %Azbzbn4ZzaxbscoxmWilson Memorial HospitalComment on above:Performed By: #### [id number] #### [facility] ([facility]) [address] [place], [place] [address]ZYXDUMQMB (10*3/UL) IN BLOOD AUTOMATED [id number] 10*3/uLNormal 150-400UnWilson Memorial HospitalComment on above:Performed By: #### [id number] #### [facility] ([facility]) [address] [place] [address]QHZ (Bld) [#/Vol]3.90 10*6/uLNormal3.80-5.00UnWilson Memorial HospitalComment on above:Performed By: #### [id number] #### [facility] ([facility]) [address] [place], [place] [address]KYT (Bld) [#/Vol]6.37 10*3/uLNormal4.00-10.60UnWilson Memorial HospitalComment on above:Performed By: #### [id number] #### [facility] ([facility]) [address] [place], [place] [address]BANE GLUCOSE METER UNSOLICITED RESULTSon 92-74-7548Sjktxgt [Mass/Vol]107 mg/yLXxsu84-192JodnsgrcbgWilson Memorial HospitalComment on above:Order Comment: Waived Testing in the ED is performed under the ED CLIA certificate #[id number].Result Comment: lraftisPerformed By: #### [id number] #### [facility] ([facility]) [address] [place], [place] [address]gm [id number] patient is Moderately Unstable - Medium risk of patient condition declining or worsening The patient's goals for the shift include comfort/rest The clinical goals for the shift include stable vital signsNormalUniversity of Houston Methodist HospitalALDOSTERONEon 95-72-5546OQPCLMTVCVW (NG/DL) IN SER/PLAS16.7 ng/dLNormalUniversity of Houston Methodist HospitalComment on above:Order Comment: Contacted DEBORA elise [...] reference intervals for this test in the [facility] Test Directory ([employer]). Performed By: [facility] [address] [place] [address] Field Services Analyst: Wilfrid Gomez MD, PhD CLIA Number: [id number] By: #### [id number] #### [facility] [address] [place], [place] [address]ELMTG METABOLIC PANELon 69-56-7898Dqlcx gap [Moles/Vol] 12 mmol/LNormal7-20UnWilson Memorial HospitalComment on above:Performed By: #### [id number] ####[facility] ([facility])[address] [place] [address] Calcium [Mass/Vol]8.2 mg/dLLow8.6-10.3UnWilson Memorial HospitalComment on above:Performed By: #### [id number] ####[facility] (BEAKER)[address] [place], [place] [address]Zawkhbad [Moles/Vol]104 mmol/LVkbxqk43-763KytmnmpqlfWilson Memorial HospitalComment on above:Performed By: #### [id number] ####[facility] ([facility]ER)[address] [place], [place] [address]DI8 [Moles/Vol]21 mmol/LNormal 21-31UnWilson Memorial HospitalComment on above:Performed By: #### [id number] ####[facility] ([facility]ER)[address] [place], [place] [address]Adrnlwtcww [Mass/Vol]3.12 mg/dLHigh0.60-1.20UnWilson Memorial HospitalComment on above:Performed By: #### [id number] ####[facility] ([facility]ER)[address] [place], [place] [address]CNTVMPUUWS FILTRATION RATE ML/MIN/1.73 SQ M.FGDYCCVFT19.0 mL/min/1.73m*2Low>60.0UnWilson Memorial HospitalComment on above:Result Comment: [facility]???s estimated glomerular filtration rate (eGFR) will [...] anyone group of individuals.Performed By: #### [id number] ####[facility] ([facility])[address] [place], [place] [address]Vsbzcyd [Mass/Vol]103 mg/dGJgsm52-949RrkoqdaeovWilson Memorial HospitalComment on above:Performed By: #### [id number] ####[facility] ([facility])[address] HIGHL[facility] HEALTHCAREChar[place], [place] [address]Pubnvncuh [Moles/Vol]5.0 mmol/L Normal3.5-5.1UnWilson Memorial HospitalComment on above:Performed By: #### [id number] ####[facility] ([facility])[address] [place] [address] Sodium [Moles/Vol]132 mmol/NBfq016-292QdpagvomelWilson Memorial HospitalComment on above:Performed By: #### [id number] ####[facility] ([facility])[address] [place], [place] [address]Cevu nitrogen [Mass/Vol]46 mg/dLHigh7-25UnWilson Memorial HospitalComment on above:Performed By: #### [id number] ####[facility] ([facility])[address] [place], [place] [address]IJBE NITROGEN/CREATININE (MASS RATIO) IN SER/PLAS14.7NormalUniversAdena Fayette Medical CenterComment on above: Performed By: #### [id number] ####[facility] ([facility])[address] [place], [place] [address]OHI WITH AUTO DIFFERENTIALon 34-69-0576Hvawwnzyn (Bld) [#/Vol]0.06 10*3/uLNormal0.00-0.20UnWilson Memorial HospitalComment on above: Performed By: #### [id number] ####[facility] ([facility])[address] [place], [place] [address]Ophdfyqxj/100 WBC (Bld)1.1 %High0.0-1.0UnWilson Memorial HospitalComment on above:Performed By: #### [id number] ####[facility] ([facility])[address] [place], [place] [address]Mcqzxgyjaun (Bld) [#/Vol]0.26 10*3/uL Normal0.00-0.50UnWilson Memorial HospitalComment on above:Performed By: #### [id number] ####[facility] ([facility])[address] [place] [address] Eosinophils/100 WBC (Bld)4.8 %Normal0.0-6.0UnWilson Memorial Hospital Comment on above:Performed By: #### [id number] ####[facility] ([facility])[address] [place], [place] [address]Pcrtfsglzbr distribution width (RBC) [Ratio]16.4 % High11.5-15.0UnWilson Memorial HospitalComment on above:Performed By: #### [id number] ####[facility] ([facility])[address] [place] [address] ERYTHROCYTE MEAN CORPUSCULAR HEMOGLOBIN CONCENTRATION (G/DL) BY CIDFGWYCD87.2 g/uPFwwpgx63.0-35.0UnWilson Memorial HospitalComment on above:Performed By: #### [id number] ####[facility] ([facility])[address] [place], [place] [address]Gyyguoystv (Bld) [Volume fraction]33.9 %Low36.0-45.0UnWilson Memorial HospitalComment on above:Performed By: #### [id number] ####[facility] ([facility])[address] [place], [place] [address]Ibcseqeyta (Bld) [Mass/Vol]10.9 g/dL Low12.0-15.0UnWilson Memorial HospitalComment on above:Performed By: #### [id number] ####[facility] ([facility])[address] [place] [address] Immature granulocytes (Bld) [#/Vol]0.02 10*3/uLNormal0.00-0.20UnWilson Memorial HospitalComment on above:Performed By: #### [id number] ####[facility] ([facility])[address] [place], [place] [address]Ytvwlbks granulocytes/100 WBC (Bld)0.4 %Normal0.0-1.0UnWilson Memorial HospitalComment on above: Performed By: #### [id number] ####[facility] ([facility])[address] [place], [place] [address]Trcojewlxti (Bld) [#/Vol]1.46 10*3/uLNormal1.20-4.00 [facility] HospitalComment on above:Performed By: #### [id number] ####[facility] ([facility])[address] [place], [place] [address]Qflecibfwfh/100 WBC (Bld)27.1 %Uaesgo97.0-45.0UnWilson Memorial HospitalComment on above:Performed By: #### [id number] ####[facility] ([facility])[address] [place], [place] [address]EIQ (RBC) [Entitic mass]29.2 zoJfxanj94.0-33.0UnWilson Memorial HospitalComment on above:Performed By: #### [id number] ####[facility] ([facility])[address] [place], [place] [address]DNK (RBC) [Entitic vol] 90.9 zZTvzfyf11.0-98.0UnWilson Memorial HospitalComment on above: Performed By: #### [id number] ####[facility] ([facility])[address] [place], [place] [address]Nbvhuxqce (Bld) [#/Vol]0.63 10*3/uLNormal0.10-1.00UnWilson Memorial HospitalComment on above:Performed By: #### [id number] ####[facility] ([facility])[address] [place] [address]Sufjnoqdg/100 WBC (Bld) 11.7 %Normal5.0-12.0[facility] HospitalComment on above: Performed By: #### [id number] ####[facility] ([facility])[address] [place] [address]Tdysmlxkrvx (Bld) [#/Vol]2.96 10*3/uLNormal1.60-7.60 [facility] HospitalComment on above:Performed By: #### [id number] ####[facility] ([facility])[address] [place] [address]Cwwevuqwdno/100 WBC (Bld)54.9 %Scpfqj59.0-72.0UnWilson Memorial HospitalComment on above:Performed By: #### [id number] ####[facility] ([facility])[address] [place] [address]OAGJ (PER 100 WBCS) BY AUTOMATED COUNT0.0 %Hlpdft7UcroputjxoWilson Memorial HospitalComment on above:Performed By: #### [id number] ####[facility] ([facility])[address] [place] [address]SDQRCSGSW (10*3/UL) IN BLOOD AUTOMATED IVEFL041 10*3/hMGcbcwg174-670OeaembqnaiWilson Memorial Hospital Comment on above:Performed By: #### [id number] ####[facility] ([facility])[address] [place] [address]FED (Bld) [#/Vol]3.73 10*6/uLLow3.80-5.00UnWilson Memorial HospitalComment on above:Performed By: #### [id number] ####[facility] ([facility])[address] [address]XBQ (Bld) [#/Vol]5.39 10*3/uLNormal4.00-10.60UnWilson Memorial HospitalComment on above: Performed By: #### [id number] ####[facility] (BEAKER)[address], [place] [address]JPJV GLUCOSE METER UNSOLICITED RESULTSon 40-47-5842Spmuwja [Mass/Vol]109 mg/qSCauh52-297KkpihwtsixOhio State East HospitalComment on above:Order Comment: Waived Testing in the ED is performed under the ED CLIA certificate #[id number].Result Comment: [email or web address] By: #### [id number] ####[facility] ([facility])[address] [place], [place] [address]Zuqbzvm [Mass/Vol]128 mg/xFWgvf22-188TlqfinxskjWilson Memorial HospitalComment on above:Order Comment: Waived Testing in the ED is performed under the ED CLIA certificate #[id number].Result Comment: [email or web address] By: #### [id number] #### [facility] ([facility]) [address] [place] [place], [place] [address]Mgamjiy [Mass/Vol]155 mg/tUEbdj60-899YbyggojuvhWilson Memorial HospitalComment on above:Order Comment: Waived Testing in the ED is performed under the ED CLIA certificate #[id number].Result Comment: [email or web address] Performed By: #### [id number] #### [facility] ([facility]) [address] [place], [place] [address]Docxmns [Mass/Vol]109 mg/oIBrub81-986NbanjafmyxWilson Memorial HospitalComment on above:Order Comment: Waived Testing in the ED is performed under the ED CLIA certificate #[id number].Result Comment: [email or web address] Performed By: #### [id number] #### [facility] ([facility]) [address] [place], [place] [address]RGNXL ACTIVITYon 82-67-5419YCPOV ACTIVITY4.7 ng/mL/hrNormal [facility] HospitalComment on above:Order Comment: Contacted DEBORA elise [...] developed and its performance characteristics determined by [facility]. It has not been cleared or approved by the [place] Food and Drug Administration. This test was performed in a CLIA certified laboratory and is intended for clinical purposes. Performed By: [facility] [address] [place] [address] Field Services Analyst: Wilfrid Gomez MD, PhD CLIA Number: [id number] By: #### [id number] ####[facility] (BEAKER)[address] [place], [place] [address]ki [id number] patient is Moderately Stable - Low risk [...] needs and coordinate with support and continued care.NormalUnWilson Memorial Hospital30The patient is Moderately Stable - [...] stability and optimal renal function maintained Outcome: ProgressingNormalUniversity of [facility] Methodist Hospital30The patient is Moderately Stable - Low risk of patient condition declining or worsening The patient's goals for the shift include comfort and sleep The clinical goals for the shift include Stable vital signs, no falls, comfort NormalUnWilson Memorial HospitalBASIC METABOLIC PANELon 37-74-3696Igavl gap [Moles/Vol]11 mmol/LNormal7-20UnWilson Memorial HospitalComment on above:Performed By: #### [id number] #### [facility] (BE[facility]ER) [address], [place] [address]Jlwbisn [Mass/Vol]8.8 mg/dLNormal8.6-10.3UnWilson Memorial HospitalComment on above:Performed By: #### [id number] #### [facility] (BEAKER) [address] [place], [place] [address]Zpwcvodp [Moles/Vol]106 mmol/DAvpvwj41-345SwhkntgcguWilson Memorial HospitalComment on above:Performed By: #### [id number] #### [facility] ([facility]) [address] [place] [address]JJ9 [Moles/Vol]25 mmol/KRgkwhw62-53IjckzjegumWilson Memorial HospitalComment on above:Performed By: #### [id number] #### [facility] ([facility]) [address] [place] [address]Cauftgeuzx [Mass/Vol]2.41 mg/dLHigh0.60-1.20UnWilson Memorial HospitalComment on above:Performed By: #### [id number] #### [facility] ([facility]) [address] [place] [address]IOJSTAKZWJ FILTRATION RATE ML/MIN/1.73 SQ M.TDMCBVWTQ97.4 mL/min/1.73m*2Low>60.0UnWilson Memorial HospitalComment on above:Result Comment: [facility]???s estimated glomerular filtration rate (eGFR) will [...] group of individuals.Performed By: #### [id number] #### [facility] ([facility]) [address] [place] [address]Zhzozfx [Mass/Vol]82 mg/yOYnybmk54-267UbegzbjnmkWilson Memorial HospitalComment on above:Performed By: #### [id number] #### [facility] ([facility]) [address] [place] [address]Ivdnmsoqd [Moles/Vol]3.9 mmol/LNormal3.5-5.1UnWilson Memorial HospitalComment on above:Performed By: #### [id number] #### [facility] ([facility]) [address] [place] [address]Eutdga [Moles/Vol]138 mmol/JEbrlnj463-955LcmzxfvhcpWilson Memorial HospitalComment on above:Performed By: #### [id number] #### [facility] ([facility]) [address] [place] [address]Weug nitrogen [Mass/Vol]38 mg/dLHigh7-25UnWilson Memorial HospitalComment on above:Performed By: #### [id number] #### [facility] ([facility]) [address] [place] [address]OQMS NITROGEN/CREATININE (MASS RATIO) IN SER/PLAS15.8Normal [facility] HospitalComment on above:Performed By: #### [id number] #### [facility] ([facility]) [address] [place] [address]TJI WITH AUTO DIFFERENTIALon 16-32-8536Pqxecmucz (Bld) [#/Vol] 0.05 10*3/uLNormal0.00-0.20UnWilson Memorial HospitalComment on above: Performed By: #### [id number] #### [facility] ([facility]) [address] [place] [address]Qlmywmmtf/100 WBC (Bld)1.0 %Normal0.0-1.0UnWilson Memorial HospitalComment on above:Performed By: #### [id number] #### [facility] ([facility]) [address] [place], [place] [address]Qxvotelbhur (Bld) [#/Vol]0.14 10*3/uLNormal0.00-0.50UnWilson Memorial HospitalComment on above:Performed By: #### [id number] #### [facility] ([facility]) [address] [place], [place] [address]Yrlegugyjjh/100 WBC (Bld)2.7 %Normal0.0-6.0UnWilson Memorial HospitalComment on above:Performed By: #### [id number] #### [facility] ([facility]) [address] [place] [address]Llghxkijbdo distribution width (RBC) [Ratio]16.6 %High11.5-15.0 [facility] HospitalComment on above:Performed By: #### [id number] #### [facility] ([facility]) [address] [place] [address]YZZBGUYQWGD MEAN CORPUSCULAR HEMOGLOBIN CONCENTRATION (G/DL) BY PSIDVMTKA57.4 g/kLLuzifj33.0-35.0UnWilson Memorial HospitalComment on above:Performed By: #### [id number] #### [facility] ([facility]) [address] [place] [place] [address]Ageaosvmcd (Bld) [Volume fraction]34.9 %Low36.0-45.0UnWilson Memorial HospitalComment on above:Performed By: #### [id number] #### [facility] ([facility]) [address] [place] [place], [place] [address]Vlvysxykad (Bld) [Mass/Vol]11.3 g/dLLow12.0-15.0UnWilson Memorial HospitalComment on above:Performed By: #### [id number] #### [facility] ([facility]) [address] [place], [place] [address]Fvnifywc granulocytes (Bld) [#/Vol]0.01 10*3/uLNormal0.00-0.20 [facility] HospitalComment on above:Performed By: #### [id number] #### [facility] ([facility]) [address] [place], [place] [address]Weknqmro granulocytes/100 WBC (Bld)0.2 %Normal0.0-1.0UnWilson Memorial HospitalComment on above:Performed By: #### [id number] #### [facility] ([facility]) [address] [place] [place] [address]Tqozdhvkede (Bld) [#/Vol]1.51 10*3/uLNormal1.20-4.00UnWilson Memorial HospitalComment on above:Performed By: #### [id number] #### [facility] ([facility]) [address] [place] [address]Ytkgrdivssk/100 WBC (Bld)28.8 %Kkuiio38.0-45.0UnWilson Memorial HospitalComment on above:Performed By: #### [id number] #### [facility] ([facility]) [address] [place] [address]IUA (RBC) [Entitic mass]29.6 umVaarlb09.0-33.0UnWilson Memorial HospitalComment on above:Performed By: #### [id number] #### [facility] ([facility]) [address] [facility] [place], [place] [address]UIH (RBC) [Entitic vol]91.4 lWIslssz16.0-98.0UnWilson Memorial HospitalComment on above:Performed By: #### [id number] #### [facility] ([facility]) [address] [facility] [place], [place] [address]Pddqfjyyl (Bld) [#/Vol]0.71 10*3/uLNormal0.10-1.00UnWilson Memorial HospitalComment on above:Performed By: #### [id number] #### [facility] ([facility]) [address] [place] [place], [place] [address]Oqowvaoty/100 WBC (Bld)13.5 %High5.0-12.0UnWilson Memorial HospitalComment on above:Performed By: #### [id number] #### [facility] ([facility]) [address] [facility] [place], [place] [address]Fycanabkktk (Bld) [#/Vol]2.82 10*3/uLNormal1.60-7.60UnWilson Memorial HospitalComment on above:Performed By: #### [id number] #### [facility] ([facility]) [address] [place], [place] [address]Ezpsztdwqpv/100 WBC (Bld)53.8 %Cfvbgt80.0-72.0[facility] Medical CenterComment on above:Performed By: #### [id number] #### [facility] ([facility]) [address] [place], [place] [address]GUIT (PER 100 WBCS) BY AUTOMATED COUNT0.0 %Yxiezb7IfdoaawhdkWilson Memorial HospitalComment on above:Performed By: #### [id number] #### [facility] ([facility]) [address] [facility] [place], [place] [address]ZFJEZRYIQ (10*3/UL) IN BLOOD AUTOMATED [id number] 10*3/uLNormal 150-400UnWilson Memorial HospitalComment on above:Performed By: #### [id number] #### [facility] ([facility]) [address] [place], [place] [address]UIE (Bld) [#/Vol]3.82 10*6/uLNormal3.80-5.00UnWilson Memorial HospitalComment on above:Performed By: #### [id number] #### [facility] ([facility]) [address] [place], [place] [address]BQH (Bld) [#/Vol]5.24 10*3/uLNormal4.00-10.60UnWilson Memorial HospitalComment on above:Performed By: #### [id number] #### [facility] ([facility]) [address] [place], [place] [address]NRUZYNGxx 87-41-6668YQNNKXFQrvihnpdpx Consult Note Reason for Consult: NSTEMI, hypertensive [...] DVT/PE, CKD stage IV, LEE. Transfer from [facility] for management of NSTEMI. Patient gives history [...] shortness of breath. She was taken to [facility] and was found to have high systolic blood pressure of 250. Troponin was 243-->324-->419. In [place] she got 2 doses of hydralazine and was also started on nitro drip with no improvement in the blood pressure and was given IV labetalol and was transferred to [facility] for suspected NSTEMI. CT brain was [...] Pneumovax-23 [pneumococcal 23-cruz ps vaccine], Red dye, Yzeiyij-wdu-hch reductase inhibitors, and Varenicline Medications Current Outpatient [...] -- -- -- -- 03/13/25 0301 (!) 224 36.1 ???C (97 ???F) Temporal 77 17 94 % -- -- 03/13/25 0300 (!) 224 -- -- 81 18 94 % -- -- 03/13/25 0201 (!) 217 36.1 ???C (97 ???F) Temporal 79 15 [...] Value Ventricular Rate 71 Atrial Rate 71 FL Interval 158 QRS DURATION 100 QT Interval 464 QTC CALCULATION(BAZETT) 504 P [place] 10 R-[place] 2 T Wave [place] 160 Impression Normal (more content not included)...[facility] CONSULTNephrology Consult Note Patient : Marleni Dennis; 74 y.o. Location: [facility]/4108-01 Attending: Erickson Cabrera MD Admit Date: 03/13/2025 Hospital Day: 0 Reason for Consult: CKD IV with uncontrolled hypertension. History of Present Illness: Marleni Dennis is a 74 y.o. female who was transferred from [facility] after presenting with weakness after a fall as well as uncontrolled hypertension. She has pertinent past medical history of hypertension secondary to renal artery stenosis, CKD IV, CAD s/p CABG and PCI with stent placement, obstructive sleep apnea. 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 She says she has a water pill [...] Dose Status apixaban (Eliquis) 2.5 mg tablet [id number] TAKE 1 TABLET BY MOUTH TWICE A DAY FOR 90 DAYS Historical ProviderMD Active aspirin 81 mg EC tablet [id number] Take 1 tablet every day by oral route. Historical ProviderMD Flag for Review buPROPion (Wellbutrin) 75 mg tablet [id number] Yes Take 75 mg by mouth twice a day. Historical ProviderMD Active carvedilol (Coreg) 12.5 mg tablet [id number] No Take 25 mg by mouth with breakfast and with eveni (more content not included)...NormalUnWilson Memorial HospitalCORTISOLon 11-72-9273XDZRUBNF (UG/DL) IN SER/PLAS8.8 ug/dLNormal6-23 [facility] HospitalComment on above:Performed By: #### [id number] ####[facility] ([facility])[address] [place], [place] [address]PDQA SENSITIVITY TROPONIN Ion 31-17-7145ME TROPONIN I (NG/L)215 ng/LCritically high<15UnWilson Memorial HospitalComment on above:Performed By: #### [id number] #### [facility] ([facility]) [address] [place], [place] [address]SM TROPONIN I (NG/L)223 ng/LCritically high<15UnWilson Memorial HospitalComment on above:Performed By: #### [id number] ####[facility] ([facility])[address] [place], [place] [address]CI TROPONIN I (NG/L)228 ng/LCritically high<15UnWilson Memorial HospitalComment on above: Performed By: #### [id number] #### [facility] ([facility]) [address] [place], [place] [address]NUSGOHYSKcq 23-15-24[address]Qoydsxydg [Mass/Vol]2.8 mg/dLHigh1.9-2.7 [facility] HospitalComment on above:Performed By: #### [id number] #### [facility] ([facility]) [address] [place], [place] [address]Ufkhntamt [Mass/Vol]1.2 mg/dLLow1.9-2.7UnWilson Memorial HospitalComment on above:Performed By: #### [id number] #### [facility] ([facility]) [address] [place], [place] [address]YKNNRGZTyy 28-97-6763BPEZCYIOPbhomlx blood glucose is 79 mg/dl. Requesting ID band from registration. Orders noted, diet and water provided to patient. Will review BP and pain to patient's right head with on-call provider.NormalUnWilson Memorial HospitalPOCT GLUCOSE METER UNSOLICITED RESULTSon 71-27-7673Bjltlmd [Mass/Vol]128 mg/dLHigh 70-105UnWilson Memorial HospitalComment on above:Order Comment: Waived Testing in the ED is performed under the ED CLIA certificate #[id number].Result Comment: [id number] By: #### [id number] ####[facility] (BEAKER)[address] [place], [place] [address]Uyeewng [Mass/Vol]133 mg/sPZgzk44-111ZfvupvrhcpWilson Memorial HospitalComment on above:Order Comment: Waived Testing in the ED is performed under the ED CLIA certificate #[id number].Result Comment: [email or web address] Performed By: #### [id number] ####[facility] (AKER)[address] [place], [place] [address]Eczctpf [Mass/Vol]172 mg/vPIche24-062WxgxdyuwpuWilson Memorial HospitalComment on above:Order Comment: Waived Testing in the ED is performed under the ED CLIA certificate #[id number].Result Comment: [email or web address] Performed By: #### [id number] ####[facility] (BEAKER)[address] [place], [place] [address]Ldrdyug [Mass/Vol]136 mg/kXGmtf41-567XyxozlhgdbWilson Memorial HospitalComment on above:Order Comment: Waived Testing in the ED is performed under the ED CLIA certificate #[id number].Result Comment: [email or web address] Performed By: #### [id number] #### [facility] (BEAKER) [address] [place], [place] [address]Tqtsxmy [Mass/Vol]81 mg/yZTsxxpk54-222BfayrzxkmhWilson Memorial HospitalComment on above:Order Comment: Waived Testing in the ED is performed under the ED CLIA certificate #[id number].Result Comment: [email or web address] Performed By: #### [id number] #### [facility] (BEAKER) [address] [place], [place] [id number], FREEon [id number] (T4) FREE (NG/DL) IN SER/PLAS1.23 ng/dLNormal0.71-1.85UnWilson Memorial HospitalComment on above: Performed By: #### [id number] #### [facility] [address] [place], [place] [id number] REFLEX TO FT4on [id number] (MIU/L) IN SER/PLAS BY DETECTION LIMIT <= 0.05 MIU/L6.01 mIU/LHigh0.34-5.60UnWilson Memorial HospitalComment on above:Performed By: #### [id number] #### [facility] ([facility]) [address] [place], [place] [address]RVF (INCLUDES DIFF/PLT)on 67-96-4286Gvdenwxwi (Bld) [#/Vol]0.042 10*3/uLNormal0-200Quest DiagnosticsComment on above:Performed By: #### 7600, 83167, 6399, 27517, 899 #### [facility] [place] [address] S Iron Worker: Figueroa Jacques MDBasophils/100 WBC (Bld)0.8 %NormalQuest DiagnosticsComment on above:Performed By: #### 7600, 40850, 6399, 52416, 899 #### [facility] [address], [address] [place] [address] S Iron Worker: Figueroa Jacques MDEosinophils (Bld) [#/Vol]0.25 10*3/uLNormal 15-500Quest DiagnosticsComment on above:Performed By: #### 7600, 08754, 6399, 28202, 899 #### [facility] [address], [address] [place] [address] S Iron Worker: Figueroa Jacques MDEosinophils/100 WBC (Bld)4.8 %NormalQuest DiagnosticsComment on above:Performed By: #### 7600, 88960, 6399, 65391, 899 #### [facility] of [address], [address] [place] [address] S Iron Worker: Figueroa Jacques MDErythrocyte distribution width (RBC) [Ratio] 14.8 %Vpqnvl44.0-15.0Quest DiagnosticsComment on above:Performed By: #### 7600, 24261, 6399, 85747, 899 #### [facility] of [address], [address] [place] [address] S Iron Worker: Figueroa Jacques MDHematocrit (Bld) [Volume fraction]36.8 %Normal 35.0-45.0Quest DiagnosticsComment on above:Performed By: #### 7600, 48528, 6399, 46287, 899 #### [facility] of [address], [address] [place] [address] S Iron Worker: Figueroa Jacques MDHemoglobin (Bld) [Mass/Vol]11.9 g/dLNormal 11.7-15.5Quest DiagnosticsComment on above:Performed By: #### 7600, 95648, 6399, 31802, 899 #### [facility] of [address], [address] [place] [address] S Iron Worker: Figueroa Jacques MDLymphocytes (Bld) [#/Vol]1.737 10*3/uLNormal 850-3900Quest DiagnosticsComment on above:Performed By: #### 7600, 44271, 6399, 22060, 899 #### [facility] of [address], [address] [place] [address] S Iron Worker: Figueroa Jacques MDLymphocytes/100 WBC (Bld)33.4 %NormalQuest DiagnosticsComment on above:Performed By: #### 7600, 87612, 6399, 24806, 899 #### [facility] of [address], [address] [place] [address] S Iron Worker: Figueroa Jacques MDMCH (RBC) [Entitic mass]28.7 dtZhczze78.0-33.0 Quest DiagnosticsComment on above:Performed By: #### 7600, 64849, 6399, 35797, 899 #### [facility] of [address], [address] [place] [address] S Iron Worker: Figueroa CEVALLOSCHC (RBC) [Mass/Vol]32.3 g/hWVzriur77.0-36.0 Quest DiagnosticsComment on above:Result Comment: For adults, a slight decrease in the calculated MCHC value (in the range of 30 to 32 g/dL) is most likely not clinically significant; however, it should be interpreted with caution in correlation with other red cell parameters and the patient's clinical condition.Performed By: #### 7600, 11274, 6399, 34182, 899 #### [facility] of [address], [address] [place] [address] S Iron Worker: Figueroa Jacques MDMCV (RBC) [Entitic vol]88.7 uCFbdtzo54.0-100.0 Quest DiagnosticsComment on above:Performed By: #### 7600, 74034, 6399, 31060, 899 #### [facility] of [address], [address] [place] [address] S Iron Worker: Figueroa Jacques MDMonocytes (Bld) [#/Vol]0.51 10*3/uLNormal 200-950Quest DiagnosticsComment on above:Performed By: #### 7600, 80710, 6399, 37425, 899 #### [facility] of [address], [address] [place] [address] S Iron Worker: Figueroa Jacques MDMonocytes/100 WBC (Bld)9.8 %NormalQuest DiagnosticsComment on above:Performed By: #### 7600, 70315, 6399, 93462, 899 #### [facility] of [address], [address] [place] [address] S Iron Worker: Figueroa Praterutrophils (Bld) [#/Vol]2.662 10*3/uLNormal 1500-7800Quest DiagnosticsComment on above:Performed By: #### 7600, 09607, 6399, 85476, 899 #### [facility] of [address], [address] [place] [address] S Iron Worker: Figueroa Praterutrophils/100 WBC (Bld)51.2 %NormalQuest DiagnosticsComment on above:Performed By: #### 7600, 88846, 6399, 71459, 899 #### [facility] of [address], [address] [place] [address] S Iron Worker: Figueroa Jacques MDPlatelet mean volume (Bld) [Entitic vol]10.6 fLNormal7.5-12.5Quest DiagnosticsComment on above:Performed By: #### 7600, 67868, 6399, 43440, 899 #### [facility] of [address], [address] [place] [address] S Iron Worker: Figueroa Jacques MDPlatelets (Bld) [#/Vol]205 10*3/uLNormal 140-400Quest DiagnosticsComment on above:Performed By: #### 7600, 36737, 6399, 65004, 899 #### [facility] of [address], [address] [place] [address] S Iron Worker: Figueroa Jacques MDRBC (Bld) [#/Vol]4.15 10*6/uLNormal3.80-5.10 Quest DiagnosticsComment on above:Performed By: #### 7600, 24955, 6399, 74420, 899 #### [facility] of [address], [address] [place] [address] S Iron Worker: Figueroa Jacques MDWBC (Bld) [#/Vol]5.2 10*3/uLNormal3.8-10.8 Quest DiagnosticsComment on above:Performed By: #### 7600, 18764, 6399, 45056, 899 #### [facility] of [place] [address] S Iron Worker: Figueroa Jacques MDCOMPREHENSIVE METABOLIC PANELon 01-02-2025 Albumin [Mass/Vol]3.9 g/dLNormal3.6-5.1Quest DiagnosticsComment on above: Performed By: #### 7600, 68468, 6399, 11236, 899 #### [facility] of [address], [address] [place] [address] S Iron Worker: Figueroa Jacques MDAlbumin/Globulin [Mass ratio]1.5 {ratio}Normal 1.0-2.5Quest DiagnosticsComment on above:Performed By: #### 7600, 16330, 6399, 21941, 899 #### [facility] of [address], [address] [place] [address] S Iron Worker: Figueroa Jacques MDALP [Catalytic activity/Vol]45 U/HVwcepa16-700 Quest DiagnosticsComment on above:Performed By: #### 7600, 15278, 6399, 52055, 899 #### [facility] of [place] [address] S Iron Worker: Figueroa Jacques MDALT [Catalytic activity/Vol]4 U/LLow6-29Quest DiagnosticsComment on above:Performed By: #### 7600, 08371, 6399, 97060, 899 #### [facility] of [place] [address] S Iron Worker: Figueroa Jacques MDAST [Catalytic activity/Vol]14 U/NCweozl09-14 Quest DiagnosticsComment on above:Performed By: #### 7600, 00129, 6399, 19073, 899 #### [facility] of [place] [address] S Iron Worker: Figueroa Jacques MDBilirubin [Mass/Vol]0.6 mg/dLNormal0.2-1.2 Quest DiagnosticsComment on above:Performed By: #### 7600, 20813, 6399, 50044, 899 #### [facility] of [place] [address] S Iron Worker: Figueroa Jacques MDCalcium [Mass/Vol]9.2 mg/dLNormal8.6-10.4Quest DiagnosticsComment on above:Performed By: #### 7600, 69970, 6399, 53703, 899 #### [facility] of [place] [address] S Iron Worker: Figueroa Jacques MDChloride [Moles/Vol]108 mmol/VIckyou11-515 Quest DiagnosticsComment on above:Performed By: #### 7600, 29418, 6399, 66154, 899 #### [facility] of [place] [address] S Iron Worker: Figueroa Jacques MDCO2 [Moles/Vol]24 mmol/TTgbdrq59-25Epjph DiagnosticsComment on above:Performed By: #### 7600, 18026, 6399, 06896, 899 #### [facility] of [place] [address] S Iron Worker: Figueroa Jacques MDCreatinine [Mass/Vol]2.01 mg/dLHigh0.60-1.00 Quest DiagnosticsComment on above:Performed By: #### 7600, 46844, 6399, 72522, 899 #### [facility] of [place] [address] S Iron Worker: Figueroa Jacques MDGFR/1.73 sq M.predicted among non-blacks MDRD (S/P/Bld) [Vol rate/Area]25 mL/min/{1.73_m2}Low> OR = 60Quest DiagnosticsComment on above:Performed By: #### 7600, 13571, 6399, 51993, 899 #### [facility] of [place] [address], [address] [place] [address] S Iron Worker: Figueroa Jacques MDGlobulin (S) [Mass/Vol]2.6 g/dLNormal1.9-3.7 Quest DiagnosticsComment on above:Performed By: #### 7600, 41445, 6399, 98202, 899 #### [facility] [place] [address] S Iron Worker: Figueroa Jacques MDGlucose [Mass/Vol]103 mg/ySAfho64-91Lemyf DiagnosticsComment on above:Result Comment: Fasting reference interval For someone without known diabetes, a glucose value between 100 and 125 mg/dL is consistent with prediabetes and should be confirmed with a follow-up test.Performed By: #### 7600, 32291, 6399, 06885, 899 #### [facility] [place] [address] S Iron Worker: Figueroa Jacques MDPotassium [Moles/Vol]4.4 mmol/LNormal3.5-5.3 Quest DiagnosticsComment on above:Performed By: #### 7600, 51049, 63, 59659, 899 #### [facility] [place] [address] S Iron Worker: Figueroa Jacques MDProtein [Mass/Vol]6.5 g/dLNormal6.1-8.1Quest DiagnosticsComment on above:Performed By: #### 7600, 77597, 6399, 52779, 899 #### [facility] [place] [address] S Iron Worker: Figueroa Jacques MDSodium [Moles/Vol]141 mmol/QIupbcw751-693Ugdlt DiagnosticsComment on above:Performed By: #### 7600, 49091, 6399, 02714, 899 #### [facility] [place] [address] S Iron Worker: Figueroa Jacques MDUrea nitrogen [Mass/Vol]27 mg/dLHigh7-25Quest DiagnosticsComment on above:Performed By: #### 7600, 93874, 6399, 14023, 899 #### [facility] [address], [address] [place] [address] S Iron Worker: Figueroa Jacques MDUrea nitrogen/Creatinine [Mass ratio]13 mg/mg Normal6-22Quest DiagnosticsComment on above:Performed By: #### 7600, 22985, 6399, 48336, 899 #### [facility] [address], [address] [place] [address] S Iron Worker: Figueroa Jacques MDLIPID PANEL, [facility] 08-45-6042Oxnfvyaxigf [Mass/Vol]138 mg/dLNormal<200Quest DiagnosticsComment on above:Order Comment: FASTING:YES FASTING: YESPerformed By: #### 7600, 71622, 6399, 16230, 899 #### [facility] [address], [address] [place] [address] S Iron Worker: Figueroa Jacques MDCholesterol in HDL [Mass/Vol]37 mg/dLLow> OR = 50Quest DiagnosticsComment on above:Order Comment: FASTING:YES FASTING: YESPerformed By: #### 7600, 06927, 6399, 87007, 899 #### [facility] [address], [address] [place] [address] S Iron Worker: Figueroa Jacques MDCholesterol in LDL [Mass/Vol]76 mg/dLNormal [...] of LDL-C. Andres SS et al. NICOLE. 2013;310(53): 6980-4993 (http://education.[facility].[employer]/faq/MXA179)Performed By: #### 7600, 73686, 6399, 05014, 899 #### [facility] [place] [address] S Iron Worker: Figueroa OCHOAholesterol.total/Cholesterol in HDL [Mass ratio]3.7 {ratio}Normal<5.0Quest DiagnosticsComment on above:Order Comment: FASTING:YES FASTING: YESPerformed By: #### 7600, 74417, 6399, 51090, 899 #### [facility] [address], [address] [place] [address] S Iron Worker: Figueroa SILVA HDL KRQOPNNHUKZ609 mg/dL (calc)Normal<130 Quest DiagnosticsComment on above:Order Comment: FASTING:YES FASTING: YESResult Comment: For patients with diabetes plus 1 major ASCVD risk factor, treating to a non-HDL-C goal of <100 mg/dL (LDL-C of <70 mg/dL) is considered a therapeutic option.Performed By: #### 7600, 94395, 6399, 52398, 899 #### [facility] [place] [address] S Iron Worker: Figueroa Jacques MDTriglyceride [Mass/Vol]153 mg/dLHigh<150Quest DiagnosticsComment on above:Order Comment: FASTING:YES FASTING: YESPerformed By: #### 7600, 19267, 6399, 78941, 899 #### [facility] [address], [address] [place] [address] S Iron Worker: Figueroa Jacques MDT3, Kayla 59-00-1599Qpix T3 [Mass/Vol]2.7 pg/mLNormal2.3-4.2Quest DiagnosticsComment on above:Performed By: #### 3020, 46334, %SBCULI, 6399 #### [facility] [address], [address] [place] [address] S Iron Worker: Figueroa Jacques MDT4, FREEon 73-50-1015Ftov T4 [Mass/Vol]1.2 ng/dLNormal0.8-1.8Quest DiagnosticsComment on above:Performed By: #### 7600, 36680, 6399, 36683, 899 #### [facility] [address], [address] [address] Iron Worker: Figueroa Bond 65-15-8677YJI Qn3.82 m[IU]/LNormal 0.40-4.50Quest DiagnosticsComment on above:Performed By: #### 3020, 40367, %SBCULI, 6399 #### [facility] [address] [facility], [address] [place] [address] S Iron Worker: Figueroa Jacques MDLaboratory - Hematology and Cell countson 99-48-0669PmP8l (Bld) [Mass fraction]5 %NOMS HealthcareNo Panel Informationon 08-62-7993NYRR HealthcareAmbulatory Visit Summaryon 53-08-0940Ykymwfmuhy Visit SummaryAmbulatory Visit Summary MARLENI DENNIS :1950 [...] mg Tab) nitroglycerin (nitroglycerin 0.4 mg SubL [place]) pantoprazole (Pantoprazole [address] Tab) pregabalin [...] Alfredo CARDENAS MD Where: [facility] [address] [place] [address]- You Need to Schedule the Following Appointments Follow Up with Alfredo CARDENAS MD, URL When: Where: [facility] [address], [place] [address] [phone] Medications What How Much When Instructions New mirabegron (mirabegron 50 mg oral tablet, extended release) 1 Tablets By Mouth Every day Refills: 11 Pickup at [facility]/pharmacy #[id number] Unchanged apixaban (Eliquis 2.5 mg oral tablet) [...] concerns Unchanged nitroglycerin (nitroglycerin 0.4 mg SubL [place]) Sublingual Every 5 minutes Contact prescribing physician [...] physician if questions or concerns Pharmacy Information [facility]/pharmacy #[id number]: [address], [place] [phone] What How Much When Comments Stop Taking oxybutynin (oxybutynin 10 mg ER Tab) 1 Tablets By Mouth Every day Allergies iodine (Rash) shellfish (Unknown) statins (Unknown) Problems Ongoing - Any problem that you are currently receiving treatment for. 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 Kidney lesion Osteoporosis Urge incontinence Historical - Any problem that you are no longer receiving treatment for. Heart disease Hyperlipidem (more content not included)...[facility] Reminderson 30-40-2724XfxcwnqztUxybhsmml From: Pati Akins To: EU - Recalls Cardenas; Sent: 11/18/2024 14:29:07 EST Show up: 09/18/2025 14:28:00 EST Subject: MRI of ABD Due Date/Time: 10/13/2025 14:28:00 EST Reminder/Recall Patient is due for ABD MRI w contrast prior to November 2025 appt/ [facility] 56-39-8398Wkfptbf Office/Clinic NoteUrology Office/Clinic Note Chief Complaint 6 [...] qd. Possible SEs discussed. Rx sent to [facility]. -Cont double void maneuvers 3. 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 (Z79.01: longterm (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) On Eliquis. Elevated risk for periop complications in the future. Follow-up With When Contact Information Alfredo CARDENAS MD, URL [facility] [address] [place] [phone] Additional Instructions: 1 yr w/ MRI Patient [...] on back, Tonsillectomy. Medication (more content not included)...[facility] Comment on above:Result Comment: Electronically Signed By: Alfredo CARDENAS MD\.br\Date and Time Signed: 11/18/24 14:26 EST\.br\Electronically Co-Signed By: Mayte Vogt\.br\Date and Time Co-Signed: 11/18/24 14:24 ESTReminderson 11-88-7110RxfjsjevnPypmuzlem From: MIGUEL Thomson APRN, [place] X To: DARREL Cardenas; Sent: 03/19/2024 15:06:49 EDT Show up: 08/18/2024 15:06:00 EST Subject: Reminder Message Reminder Message MRI abdomen with and without IV contrast for kidney lesion surveillance. Follow- up appointment scheduled September Order for MRI and accompanying paperwork faxed to [facility] Central scheduling today. They will call pt to schedule. Pt is scheduled today at 2pm for MRI and creatinine draw. Will monitor Results in chart for review Results in chart for reviewNoCleveland Clinic South Pointe HospitalMR Abdomen WO and W contrast Sylvia 78-56-0133[address] [address] Magnetic Resonance Report Signed Patient: MARLENI DENNIS MR#: [id number] : 1950 Acct:[id number] Age/Sex: 73 / F ADM Date: 09/13/24 Loc: LAB Attending Dr: Alfredo Cardenas M.D. Ordering Physician: Alfredo Cardenas M.D. Date of Service: 09/13/24 Procedure(s): MR abdomen wo/w con Accession Number(s): [id number] cc: JACK VOGT ; Alfredo Cardenas M.D. [place] [address] Patient Name: MARLENI DENNIS MRN: [id number] date: 1950 Sex: F Assigned Patient Location: LAB Current Patient Location: LAB Accession/Order Number: [id number] Exam Date: 09/13/2024 13:35 Report Date: 09/20/2024 [...] Dictated By: Chirag Esquivel M.D. Signed By: 09/20/241714 DD/ 12 TD/TT: Carpet Measurer:TBHRadiology, Radiologist, - 09/20/2024 [place] [address] Magnetic Resonance Report Signed Patient: MARLENI DENNIS MR#: [id number] : 1950 Acct:[id number] Age/Sex: 73 / F ADM Date: 09/13/24 Loc: LAB Attending Dr: Alfredo Cardenas M.D. Ordering Physician: Alfredo Cardeans M.D. Date of Service: 09/13/24 Procedure(s): MR abdomen wo/w con Accession Number(s): [id number] cc: JACK VOGT ; Alfredo Cardenas M.D. The [place] [id number] Patient Name: MARLENI DENNIS MRN: [id number] date: 1950 Sex: F Assigned Patient Location: LAB Current Patient Location: LAB Accession/Order Number: [id number] Exam Date: 09/13/2024 13:35 Report Date: 09/20/2024 [...] Dictated By: Chirag Esquivel M.D. Signed By: 09/20/241714 DD/ 12 TD/TT: Carpet Measurer: MARYSOL [facility] HospitalRadiology Study observation (narrative)[facility] Abdomen WO and W contrast IVOrdered By: Radiologist Radiology on 76-11-3732TTETCedar County Memorial Hospital Work Phone: TB CREATININEon 01-91-2191Iegvjnvgvc [Mass/Vol]1.56 mg/dLHigh0.55 - 1.02 mg/dLNOSaint Luke's North Hospital–SmithvilleGFR/1.73 sq M.predicted CKD-EPI (S/P/Bld) [Vol rate/Area]39Low>=60 mL/min/1.73m 2NNORTHEASTERN HEALTH SYSTEM – TAHLEQUAH HealthcareInterpretation and review of laboratory resultsAbnormalNOSaint Luke's North Hospital–SmithvilleTB EGFR-NON AF [place] 32Low>=60 mL/min/1.73m 2NOMS HealthcareCLINISYNCNOMS Nftwcoizuq27nh Regarding echo result from 05/10/2024: MD Kari Castellano MA Echo was ok, follow up in 1 year. Patient informed.[facility] HospitalOffice Visiton 10-95-9860Hqxlqo-up [id number] Marleni Dennis 1950 F Date Provider Department Center 04/24/2024 Connor-SACHIN AGUILERA [facility] Family History Problem Relation Age of Onset Coronary artery disease Mother Stroke Mother Coronary artery disease Father Ovarian cancer Sister Family Status - Relation Status Age at Mother Father Sister Level of Service:[address]3453 [place] OFFICE/OUTPATIENT ESTABLISHED MOD MDM 30 [facility] CenterU[facility] Office/Clinic Noteon 03-19-2024 Urology Office/Clinic NoteUrology Office/Clinic [...] with voice recognition artificial intelligence software, specifically [employer], [employer] and or [employer]. Substitutions may have occurred due to the [...] 0 -Continue oxybutynin, call for refills Ordered: 62580 Measure Post Void residual urine and/or bladder [...] months for continued monitoring 3. 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) On Eliquis Follow-up With When Contact Information RONALD BEAULIEU, Alfredo Moya, URL [facility] [address], [place] [phone] Additional Instructions: 6 mos w/ MRI Patient [...] tablet, extended release nitroglycerin 0.4 mg SubL [place], SubLingual, q5min oxybutynin 10 mg ER Tab, [...] virus vaccine, inactivated 07/04/2022 Recorded SARS-CoV-2 (COVID-19) mRNAMUL.ORD![id number] 07/04/2022 Recorded influenza virus vaccine, inactivated 06/24/2021 Recorded SARS-CoV-2 (COVID-19) mRNA BNT-162b2 vax 06/24/2021 Recorded 2022-09-26: TPV70 SARS-CoV-2 (COVID-19) mRNA BNT-162b2 vax 11/17/2020 Recorded 2022-09-26: TPV70 SARS-CoV-2 (COVID-19) mRNA BNT-162b2 vax 10/27/2020 Recorded 2022-09-26: TPV70 influenza virus vaccine, inactivated 07/08/2020 Recorded [1] URO- review MRI, start Oxybutynin; RONALD BEAULIEU (more content not included)... [facility] FoundationComment on above:Result Comment: Electronically Signed By: MIGUEL Thomson APRN, Maria Luisa Pritchard\.br\Date and Time Signed: 03/19/24 15:09 EDTUS LEG LEFT VENOUS + DOPPLERon 47-82-0276VgbPear[place], [place] [address] Ultrasound Report Signed Patient: MARLENI DENNIS MR#: [id number] : 1950 Acct:[id number] Age/Sex: 72 / F ADM Date: 10/18/23 Loc: US Attending Dr: SACHIN AGUILERA Ordering Physician: SACHIN AGUILERA Date of Service: 10/18/23 Procedure(s): US venous doppler LE Accession Number(s): [id number] cc: JACK VOGT ; SACHIN AGUILERA [address] [address] Patient Name: MARLENI DENNIS MRN: [id number] date: 1950 Sex: F Assigned Patient Location: US Current Patient Location: US Accession/Order Number: [id number] Exam Date: 10/18/2023 15:08 Report Date: 10/18/2023 16:32 At the request of: SACHIN AGUILERA Procedure: US venous doppler LE BI EXAM: [...] soft tissue swelling Electronically authenticated by: HENRY WALL Date: 10/18/2023 16:32 Dictated By: Henry Wall M.D. Signed By: 10/18/23 1635 DD/ 1632 TD/TT: Carpet Measurer:TBHRadiology, Radiologist, - 10/18/[address] [address] Ultrasound Report Signed Patient: MARLENI DENNIS MR#: [id number] : 1950 Acct:[id number] Age/Sex: 72 / F ADM Date: 10/18/23 Loc: US Attending Dr: SACHIN AGUILERA Ordering Physician: SACHIN AGUILERA Date of Service: 10/18/23 Procedure(s): US venous doppler LE BI Accession Number(s): [id number] cc: JACK VOGT ; SACHIN AGUILERA [address] [address] Patient Name: MARLENI DENNIS MRN: [id number] date: 1950 Sex: F Assigned Patient Location: US Current Patient Location: US Accession/Order Number: [id number] Exam Date: 10/18/2023 15:08 Report Date: 10/18/2023 16:32 At the request of: SACHIN AGUILERA Procedure: US venous doppler LE BI EXAM: [...] soft tissue swelling Electronically authenticated by: HENRY WALL Date: 10/18/2023 16:32 Dictated By: Henry Wall M.D. Signed By: 10/18/231634 DD/ 1632 TD/TT: Carpet Measurer: [facility] HealthcareRadiology Study observation (narrative)NOM HealthcareUS LEG LEFT VENOUS + DOPPLEROrdered By: Radiologist Radiology on 68-94-2905SE[facility] Healthcare Work Phone: cbc AUTO DIFFon 04-36-8049REIU #0.1 103/ulNormal 0.0-0.1The [facility] JacksonComment on above:Performed By: #### CBC #### [facility] [address] [place] [address] [address] Aryan PettyBasophils/100 WBC (Bld)1.4 %Normal0.2-2.0The [facility] Comment on above:Performed By: #### CBC #### [facility] [address] [place] [address] [address] Aryan Loza #0.6 103/ulNormal0.0-0.7The [facility] – JacksonComment on above: Performed By: #### CBC #### [facility] [address] [place] [address] [address] Aryan Bensonosinophils/100 WBC (Bld)7.7 %Critically high0.9-7.0The [facility] – JacksonComment on above:Performed By: #### CBC #### [facility] [address] [place] [address] Dr. Aryan Bensonrythrocyte distribution width (RBC) [Ratio]16.4 %Critically high 11.0-15.0The [facility] – JacksonComment on above:Performed By: #### CBC #### [facility] [address] [place] [address] Dr. Aryan PettyHematocrit (Bld) [Volume fraction]40.6 %Qqytbo81.0-48.0The [facility] – JacksonComment on above:Performed By: #### CBC #### [facility] [address] [place] [address] Dr. Aryan PettyHemoglobin (Bld) [Mass/Vol]12.9 g/nJTyxdub65.0-16.0The [facility] – JacksonComment on above:Performed By: #### CBC #### [facility] [address] [place] [address] Dr. Aryan Ferrell #0.03 10e3/ulNormal0.00-0.03The [facility] – JacksonComment on above:Performed By: #### CBC #### [facility] [address] [place] [address] Dr. Aryan PettyIG %0.4 %Normal0.0-0.5The [facility] – JacksonComment on above: Performed By: #### CBC #### [facility] [address] [place] [address] Dr. Aryan AltamiranoH #2.6 103/ulNormal1.2-3.8The [facility] – JacksonComment on above:Performed By: #### CBC #### [facility] [address] [place] [address] Dr. Aryan Nogueramphocytes/100 WBC (Bld)35.5 %Edxpjz98.5-60.0The [facility] – JacksonComment on above:Performed By: #### CBC #### [facility] [address] [place] [address] Dr. Aryan Monroe DIFF REQNONormalThe [facility] JacksonComment on above: Performed By: #### CBC #### [facility] [address] [place] [address] Dr. Aryan Booker (RBC) [Entitic mass]26.5 pgCritically low26.7-34.0The [facility] JacksonComment on above:Performed By: #### CBC #### [facility] [address] [place] [address] Dr. Aryan Booker (RBC) [Mass/Vol]31.8 g/qUUfbhrp14.9-35.2The [facility] JacksonComment on above:Performed By: #### CBC #### [facility] [address] [place] [address] Dr. Aryan Booker (RBC) [Entitic vol]83.5 zSSrxxun21.0-99.0The [facility] JacksonComment on above:Performed By: #### CBC #### [facility] [address] [place] [address] Dr. Aryan Sharma #0.7 103/ulNormal0.3-0.8The [facility] JacksonComment on above:Performed By: #### CBC #### [facility] [address] [place] [address] Dr. Aryan Fairchildocytes/100 WBC (Bld)9.9 %Normal1.7-12.0The [facility] Comment on above:Performed By: #### CBC #### [facility] [address] [place] [address] Dr. Aryan Tijerina #3.3 103/ulNormal1.4-6.5The [facility] JacksonComment on above:Performed By: #### CBC #### [facility] [address] [place] [address] Dr. Aryan Gutierrezutrophils/100 WBC (Bld)45.1 %Rbtqku83.0-75.0The [facility] JacksonComment on above:Performed By: #### CBC #### [facility] [address] [place] [address] Dr. Aryan PettyPlatelet mean volume (Bld) [Entitic vol]11.0 fLNormal9.5-13.5The [facility] JacksonComment on above:Performed By: #### CBC #### [facility] [address] [place] [address] Dr. Aryan PettyPLT270 103/cvDnbrem299-175Jyh [facility] JacksonComment on above: Performed By: #### CBC #### [facility] [address] [place] [address] Dr. Aryan PettyRBC4.86 106/ulNormal4.20-5.40The [facility] JacksonComment on above:Performed By: #### CBC #### [facility] [address] [place] [address] Dr. Aryan PettyWBC7.4 103/ulNormal4.0-11.0The [facility] JacksonComment on above: Performed By: #### CBC #### [facility] [address] [place] [address] Dr. Aryan JusticeID PROFILEon 53-05-8633RHJM-HDL RATIO NORMSAdena Health SystemComment on above:Result Comment: 3.3 - 4.4 LOW RISK 4.4 - 7.1 AVERAGE RISK 7.1 - 11.0 MODERATE RISK >11.0 HIGH RISKPerformed By: #### CMP, LIPID #### [facility] [address] [place] [address] Dr. Aryan PettyCholesterol [Mass/Vol]189 mg/dLNormal<=200[facility] Comment on above:Performed By: #### CMP, LIPID #### [facility] [address] [place] [address] Dr. Aryan Alexandraesterol in HDL [Mass/Vol]30 mg/dLCritically tvy14-87Lbf [facility] JacksonComment on above:Performed By: #### CMP, LIPID #### [facility] [address] [place] [address] Dr. Aryan Alexandraesterol in LDL [Mass/Vol]101.6 mg/dLDelaware County HospitalComment on above:Performed By: #### CMP, LIPID #### [facility] [address] [place] [address] Dr. Aryan PettyCholesterol.total/Cholesterol in HDL [Mass ratio]6.3 {ratio} NormalThe [facility] JacksonComment on above:Performed By: #### CMP, LIPID #### [facility] [address] [place] [address] Dr. Aryan Armendariz NORMAL> or = 60 mg/dl - LOW CARDIOVASCULAR RISK <40 mg/dl - HIGH CARDIOVASCULAR RISKDelaware County HospitalComment on above:Performed By: #### CMP, LIPID #### [facility] [address] [place] [address] Dr. Aryan Polo CALC NORMALSEE BELOWDelaware County HospitalComcorewell health butterworth hospital on above:Result Comment: <100 mg/dl OPTIMAL 100 - 129 mg/dl NEAR OR ABOVE OPTIMAL 130 - 159 mg/dl BORDERLINE HIGH 160 - 189 mg/dl HIGH >190 mg/dl VERY HIGH Performed By: #### CMP, LIPID #### [facility] [address] [place] [address] Dr. Aryan PettyTriglyceride [Mass/Vol]287 mg/dLCritically high<=150The [facility] on above:Performed By: #### CMP, LIPID #### [facility] [address] [place] [address] Dr. Aryan LandisLDL CALC57.4 mg/dLNoMemorial Health System Selby General HospitalComcorewell health butterworth hospital on above: Performed By: #### CMP, LIPID #### [facility] [address] [place] [address] Dr. Aryan PettyPROF 14(COMP METB)on 94-78-8296Usmaxbm [Mass/Vol]3.6 g/dLNormal 3.4-5.0The [facility] on above:Performed By: #### CMP, LIPID #### [facility] [address] [place] [address] Dr. Aryan PettyAlbumin/Globulin [Mass ratio]0.8 {ratio}NormalThe [facility] JacksonComment on above:Performed By: #### CMP, LIPID #### [facility] [address] [address] [address] Aryan Ortiz [Catalytic activity/Vol]86 U/YXmpphv90-608Wue [facility] on above:Performed By: #### CMP, LIPID #### [facility] [address] [address] [address] Aryan Acharya [Catalytic activity/Vol]21 U/SZjrnfi78-80Gjd [facility] JacksonComment on above:Performed By: #### CMP, LIPID #### [facility] [address] [address] [address] Aryan Reece gap [Moles/Vol]13.1 mmol/LNormalThe [facility] Comment on above:Performed By: #### CMP, LIPID #### [facility] [address] [address] [address] Aryan PettyAST [Catalytic activity/Vol]27 U/GFmgeht07-52Ica [facility] - Dublinment on above:Performed By: #### CMP, LIPID #### [facility] [address] [address] [address] Aryan PettyBilirubin [Mass/Vol]0.4 mg/dLNormal0.2-1.0The [facility] Comment on above:Performed By: #### CMP, LIPID #### [facility] [address] [address] [address] Aryan PettyCalcium [Mass/Vol]9.4 mg/dLNormal8.5-10.1[facility] Comment on above:Performed By: #### CMP, LIPID #### [facility] [address] [address] [address] Aryan PettyChloride [Moles/Vol]103 mmol/UJsbnvu51-985Epa [facility] Comment on above:Performed By: #### CMP, LIPID #### [facility] [address] [address] [address] Aryan PettyCO2 [Moles/Vol]27.6 mmol/PHuhvmc62.0-32.0The [facility] Comment on above:Performed By: #### CMP, LIPID #### [facility] [address] [address] [address] Aryan PettyCreatinine [Mass/Vol]2.21 mg/dLCritically high0.55-1.02The [facility] JacksonComment on above:Performed By: #### CMP, LIPID #### [facility] [address] [place] [address] Dr. Aryan BensonGFR-AF ALNSCWXH73 mL/min/1.33u8Qusuzmlgtd low>=60The [facility] JacksonComment on above:Performed By: #### CMP, LIPID #### [facility] [address] [place] [address] Dr. Aryan Calvert-NON AF MUCDXZBH93 mL/min/1.73x4Jvcjwchihe low>=60The [facility] JacksonComment on above:Performed By: #### CMP, LIPID #### [facility] [address] [place] [address] Dr. Aryan PettyGlobulin (S) [Mass/Vol]4.6 g/dLNormalThe [facility] JacksonComment on above:Performed By: #### CMP, LIPID #### [facility] [address] [place] [address] Dr. Aryan PettyGlucose [Mass/Vol]120 mg/dLCritically yoqt07-999Fvv [facility] JacksonComment on above:Performed By: #### CMP, LIPID #### [facility] [address] [place] [address] Dr. Aryan PettyPotassium [Moles/Vol]4.0 mmol/LNormal3.5-5.1The [facility] Comment on above:Performed By: #### CMP, LIPID #### [facility] [address] [place] [address] Dr. Aryan PettyProtein [Mass/Vol]8.2 g/dLNormal6.4-8.2The [facility] Comment on above:Performed By: #### CMP, LIPID #### [facility] [address] [place] [address] Dr. Yilan ChangSodium [Moles/Vol]140 mmol/QDcfxwk433-588FcwTol[facility] Hospital Comment on above:Performed By: #### CMP, LIPID #### [facility] [address] [place], [place] [address] Dr. Aryan Young nitrogen [Mass/Vol]29.0 mg/dLCritically high7.0-18.0[facility] HospitalComment on above:Performed By: #### CMP, LIPID #### [facility] [address] [place], [place] [address] Dr. Aryan Young nitrogen/Creatinine [Mass ratio]13.1 mg/mgNormalThTrumbull Memorial HospitalComment on above:Performed By: #### CMP, LIPID #### [facility] [address] [place], [place] [address] Dr. Aryan [place] CAROTID ART BILon [id number] CAROTID ART BILEXAMINATION: US CAROTID ART TEJ [...] Electronically authenticated by: TONYA GARCIA Date: 2023-01-10 15:26[facility] HospitalXR DEXA BONE DENSITYon [id number] DEXA BONE DENSITY EXAMINATION: XR DEXA BONE [...] Electronically authenticated by: TONYA GARCIA Date: 2022-09-07 16:41[facility] HospitalMRI ABDOMEN WO W CONon 25-04-2037VKD ABDOMEN WO W CONEXAM: MRI ABDOMEN WO [...] Electronically authenticated by: RYLAN HOPKINS Date: 2022-09-01 12:43[facility] HospitalCREATININEon 44-44-0933Yefpjavemr [Mass/Vol]2.23 mg/dL Critically high0.55-1.02[facility] HospitalComment on above:Performed By: #### CREA ####[facility] [address] [address]Dr. Yilan ChangEGFR-AF DMMOQQEY14 mL/min/1.98o1Ajzmllvgcr low>=60The [facility] JacksonComment on above:Performed By: #### CREA ####[facility] [address] [address]Dr. Yilan ChangEGFR-NON AF VPMDSGWL96 mL/min/1.44t2Mgecernvvq low>=60The [facility] JacksonComment on above: Performed By: #### CREA ####[facility] [address] [place], [place] [address]Td. Aryan ChangECHOCARDIO M/2D COMPLETEon 03-16-2022 ECHOCARDIO M/2D COMPLETEPatient: MARLENI DENNIS Exam Date: 03/16/2022 : 1950 Gender:F Ordering : JOHN LauriGenet ZHOU Admission #: [id number] Family : DR JACK VOGT M.D. Order #: [id number] CLICK HERE TO VIEW EXAM ECHOCARDIOGRAM REPORT [...] by: Sachin Aguilera M.D. on 03/16/2022 at 16:36[facility] HospitalBNPon 16-67-3924Ekzkxjntmbt peptide B (Bld) [Mass/Vol]553.0 pg/mLNormal <=900.0The [facility] JacksonComment on above:Performed By: #### BNP, BMP ####[facility] [address] [place], [place] [address]Dr. Aryan ChangPROF CHEM 8 (BAS METB)on 11-13-3579Egadc gap [Moles/Vol]14.9 mmol/L NormalThe [facility] JacksonComment on above:Performed By: #### BNP, BMP ####[facility] [address] [place], [place] [address]Dr. Suzannelan ChangCalcium [Mass/Vol]9.1 mg/dLNormal8.5-10.1The [facility] JacksonComment on above:Performed By: #### BNP, BMP ####[facility] [address] [place], [place] [address]Dr. Suzannelan ChangChloride [Moles/Vol]102 mmol/L Paanfs52-945Prj [facility] JacksonComment on above:Performed By: #### BNP, BMP ####[facility] [address] [place], [place] [address]Dr. Yilan ChangCO2 [Moles/Vol]27.7 mmol/IHilffw06.0-32.0The [facility] JacksonComment on above:Performed By: #### BNP, BMP ####[facility] [address] [place], [place] [address]Dr. Suzannelan ChangCreatinine [Mass/Vol]1.80 mg/dL Critically high0.55-1.02The [facility] JacksonComment on above:Performed By: #### BNP, BMP ####[facility] [address] [place], [place] [address]Dr. Yilan ChangEGFR-AF EWUQRWYK59 mL/min/1.59w1Ztqrwapkgo low>=60The [facility] JacksonComment on above:Performed By: #### BNP, BMP ####[facility] [address] [place], [place] [address]Dr. Yilan ChangEGFR- NON AF PYEBBDGM78 mL/min/1.84q5Acwoquzjmi low>=60The [facility] JacksonComment on above:Performed By: #### BNP, BMP ####[facility] [address] [place], [place] [address]Dr. Yilan ChangGlucose [Mass/Vol]107 mg/dL Critically wcqo96-765Hkl [facility] JacksonComment on above:Performed By: #### BNP, BMP ####[facility] H[address] [place], [place] [address]Dr. Yilan ChangPotassium [Moles/Vol]3.6 mmol/LNormal3.5-5.1The [facility] JacksonComment on above:Performed By: #### BNP, BMP ####[facility] [address] [place], [place] [address]Dr. Yilan ChangSodium [Moles/Vol]141 mmol/GWjsewr925-222Jkk [facility] JacksonComment on above: Performed By: #### BNP, BMP ####[facility] [address] [place], [place] [address]Dr. Yilan ChangUrea nitrogen [Mass/Vol]33.0 mg/dL Critically high7.0-18.0The [facility] JacksonComment on above:Performed By: #### BNP, BMP ####[facility] [address] [place], [place] [address]Dr. Yilan ChangUrea nitrogen/Creatinine [Mass ratio]18.3 mg/mgNormalThe [facility] JacksonComment on above:Performed By: #### BNP, BMP ####[facility] [address] [place], [place] [address]Dr. Aryan ChangUS KIDNEYSon 25-52-4778RU KIDNEYSEXAMINATION: US KIDNEYS HISTORY: Kidney lesion COMPARISON: [...] Electronically authenticated by: HENRY WALL Date: 2022-02-22 17:[address] [place], [place] [address]VC VENOUS REFLUX TEJ LMTon 52-83-3216YH VENOUS REFLUX TEJ LMT Patient: MARLENI DENNIS Exam Date: 02/16/2022 : 1950 Gender:F Ordering : JOHN LUTHER Admission #: [id number] Family : Order #: [id number] CLICK HERE TO VIEW EXAM RADIOLOGY REPORT [...] proximal SSV. Flow: Mild deep venous reflux. Pest Technician: Dist/med calf 3.3 mm with 0.3s reflux. [...] Normal. Flow: Mild deep venous reflux noted. Pest Technician: Mid/medial calf 3.1mm, 2.9s. Dist/med calf 3.1mm, [...] Henry Wall MD on 02/16/2022 at 11:49[facility] CAROTID ART BILon 55-04-6876GU CAROTID ART BILEXAMINATION: US CAROTID ART TJE HISTORY: Bilateral carotid artery occlusion COMPARISON: Ultrasound [...] Electronically authenticated by: TONYA GARCIA Date: 2022-02-04 17:45[facility]Nor[facility] WALTER DOP LEG BILon 28-53-1099HP WALTER DOP LEG BILEXAM: US WALTER DOP [...] Electronically authenticated by: JERRICA HOLDEN Date: 2022-02-04 16:34[facility] HospitalBNPon 98-55-4244Obejuuvrdcy peptide B (Bld) [Mass/Vol]620.0 pg/mLNormal<=900.0The [facility] JacksonComment on above:Performed By: #### BNP, BMP, LIPID ####[facility] [address] [address]Dr. Yilan ChangLIPID PROFILEon 87-72-1141WYKR-HDL RATIO NORMSEE BELOWNormal The [facility] JacksonComment on above:Result Comment: 3.3 - 4.4 LOW RISK 4.4 - 7.1 AVERAGE RISK 7.1 - 11.0 MODERATE RISK >11.0 HIGH RISKPerformed By: #### BNP, BMP, LIPID ####[facility] [address] [address]Dr. Yilan ChangCholesterol [Mass/Vol]148 mg/dLNormal<=200The [facility] JacksonComment on above:Performed By: #### BNP, BMP, LIPID ####[facility] [address] [place], [place] [address]Dr. Yilan Petty Cholesterol in HDL [Mass/Vol]25 mg/dLCritically ysu17-98YdcToledo Hospital Comment on above:Performed By: #### BNP, BMP, LIPID ####[facility] [address] [address]Dr. Yilan ChangCholesterol in LDL [Mass/Vol]80.8 mg/dLNoMemorial Health System Selby General HospitalComment on above:Performed By: #### BNP, BMP, LIPID ####[facility] [address]wq[address] [place], [place] [address]Dr. Yilan ChangCholesterol.total/Cholesterol in HDL [Mass ratio]5.9 {ratio}NormalThe [facility] JacksonComment on above:Performed By: #### BNP, BMP, LIPID ####[facility] Y[address] [place], [place] [address]Dr. Yilan ChangHDL NORMAL> or = 60 mg/dl - LOW CARDIOVASCULAR RISK <40 mg/dl - HIGH CARDIOVASCULAR RISKNoMemorial Health System Selby General HospitalComment on above:Performed By: #### BNP, BMP, LIPID ####[facility] [address] [address]Dr. Yilan ChangLDL CALC NORMALSEE BELOWNoMemorial Health System Selby General HospitalComment on above:Result Comment: <100 mg/dl OPTIMAL 100 - 129 mg/dl NEAR OR ABOVE OPTIMAL 130 - 159 mg/dl BORDERLINE HIGH 160 - 189 mg/dl HIGH >190 mg/dl VERY HIGHPerformed By: #### BNP, BMP, LIPID ####[facility] [address] [place], [place] [address]Dr. Yilan ChangTriglyceride [Mass/Vol]211 mg/dLCritically high<=150The [facility] JacksonComment on above:Performed By: #### BNP, BMP, LIPID ####[facility] [address] [place], [place] [address]Dr. Yilan ChangVLDL CALC42.2 mg/dLNoMemorial Health System Selby General HospitalComment on above: Performed By: #### BNP, BMP, LIPID ####[facility] [address] [place], [place] [address]Dr. Yilan ChangPROF CHEM 8 (BAS METB)on 05-91-8070Itore gap [Moles/Vol]14.7 mmol/LNormalThe [facility] JacksonComment on above:Performed By: #### BNP, BMP, LIPID ####[facility] [address] [place], [place] [address]Dr. Yilan ChangCalcium [Mass/Vol]8.7 mg/dL Normal8.5-10.1The [facility] JacksonComment on above:Performed By: #### BNP, BMP, LIPID ####[facility] [address] [place], [place] [address]Dr. Yilan ChangChloride [Moles/Vol]104 mmol/WPpylxv06-968Mxr [facility] JacksonComment on above:Performed By: #### BNP, BMP, LIPID ####[facility] [address] [place], [place] [address]Dr. Yilan ChangCO2 [Moles/Vol]26.0 mmol/ODkqbrd80.0-32.0The [facility] JacksonComment on above: Performed By: #### BNP, BMP, LIPID ####[facility] [address] [place], [place] [address]Dr. Yilan ChangCreatinine [Mass/Vol]2.91 mg/dL Critically high0.55-1.02The [facility] JacksonComment on above:Performed By: #### BNP, BMP, LIPID ####[facility] [address] [place], [place] [address]Dr. Yilan ChangEGFR-AF OVYVWKMX00 mL/min/1.67p8Bgrcjhpjeu low>=60The [facility] JacksonComment on above:Performed By: #### BNP, BMP, LIPID ####[facility] [address] [place], [place] [address]Dr. Yilan ChangEGFR-NON AF RDDIUVAH87 mL/min/1.20r7Ksixtdmkdt low>=60The [facility] JacksonComment on above:Performed By: #### BNP, BMP, LIPID ####[facility] [address] [place], [place] [address]Dr. Yilan Petty Glucose [Mass/Vol]110 mg/dLCritically vvab82-038Exy [facility] JacksonComcorewell health butterworth hospital on above:Performed By: #### BNP, BMP, LIPID ####[facility] [address] [place], [place] [address]Dr. Yilan ChangPotassium [Moles/Vol]3.7 mmol/LNormal3.5-5.1The [facility] on above:Performed By: #### BNP, BMP, LIPID ####[facility] [address] [place], [place] [address]Dr. Yilan ChangSodium [Moles/Vol]141 mmol/GGbveeo431-615Vgz [facility] JacksonComment on above:Performed By: #### BNP, BMP, LIPID ####[facility] [address] [place], [place] [address]Dr. Yilan ChangUrea nitrogen [Mass/Vol]51.0 mg/dLCritically high7.0-18.0The [facility] JacksonComment on above:Performed By: #### BNP, BMP, LIPID ####[facility] [address] [place], [place] [address]Qo. Aryan PettyUrea nitrogen/Creatinine [Mass ratio]17.5 mg/mgNormalThe [facility] JacksonComment on above:Performed By: #### BNP, BMP, LIPID ####[facility] [address] [place], [place] [address]No. Aryan PettyBasic Metabolic Panel Reflex Mgon 48-49-3547Ghttj gap 3 molar conc10 mmol/LNormal7-13[facility] HospitalCalcium mass conc8.2 mg/dLLow8.6-10.2MCommunity HospitalChloride molar eumh605 mmol/LCritically mhxr37-095HkfuuRio Grande HospitalCO2 molar conc25 mmol/RQhyvvd10-75WrzyiRio Grande HospitalCreatinine mass conc1.21 mg/dLCritically high0.50-0.90[facility] HospitalGFR/1.73 sq M predicted among blacks MDRD vol rate/area (S/P/Bld)53.4 mL/min/{1.73_m2}Low>60 [facility] HospitalComment on above:Result Comment: >60 mL/min/1.73m2 EGFR, calc. for ages 18 and older using theMDRD formula (not corrected for weight), is valid for stablerenal function.GFR/1.73 sq M.predicted MDRD vol rate/area44.2 mL/min/{1.73_m2}Low>60[facility] HospitalComment on above:Result Comment: >60 mL/min/1.73m2 EGFR, calc. for ages 18 and older using theMDRD formula (not corrected for weight), is valid for stablerenal function. Glucose mass arob954 mg/dLCritically ybvd74-832JykukRio Grande Hospital Potassium reflex Mg3.6 mEq/LNormal3.5-5.1MMemorial Hospital Northodium molar vdks332 mmol/GPcdeyv901-858UuruiRio Grande HospitalUrea nitrogen mass conc26 mg/dLCritically high8-23[facility] HospitalCBC With Platelet and Differentialon 44-17-0849Wygxejibu Auto #/vol (Bld)0.1 10*3/uLNormal0.0-0.2 [facility] HospitalBasophils/100 WBC Auto (Bld)0.7 %[facility] Behavioral HospitalEosinophils Auto #/vol (Bld)0.3 10*3/uLNormal0.0-0.7[facility] HospitalEosinophils/100 WBC Auto (Bld)3.1 %[facility] Behavioral HospitalErythrocyte distribution width Auto Ratio (RBC)13.4 %Normal 11.5-14.5[facility] HospitalHematocrit Auto Volume Fraction (Bld)34.6 %Low37.0-47.0[facility] HospitalHemoglobin mass conc (Bld)12.0 g/dL Kzyxrx93.0-16.0[facility] HospitalLymphocytes Auto #/vol (Bld)2.3 10*3/uLNormal1.0-4.8[facility] HospitalLymphocytes/100 WBC Auto (Bld) 24.2 %[facility] Auto Entitic mass (RBC)33.0 pg Critically high27.0-31.3MAnimas Surgical HospitalHC Auto mass conc (RBC) 34.6 %Xdnxxh76.0-37.0[facility] HospitalMCV Auto Entitic volume (RBC) 95.4 bWPizpkd14.0-100.0[facility] HospitalMonocytes Auto #/vol (Bld) 0.9 10*3/uLCritically high0.2-0.8[facility] HospitalMonocytes/100 WBC Auto (Bld)9.8 %[facility]al HospitalNeutrophils Auto #/vol (Bld) 5.9 10*3/uLNormal1.4-6.5[facility] HospitalNeutrophils/100 WBC Auto (Bld)62.2 %[facility] HospitalPlatelets Auto #/vol (Bld)139 10*3/tRAmtthf376-421BjfzsRio Grande HospitalRBC Auto #/vol (Bld)3.62 10*6/uLLow4.20-5.40[facility] HospitalWBC Auto #/vol (Bld)9.5 10*3/uL Normal4.8-10.8[facility] HospitalBasic Metabolic Panelon 06-06-2018 Anion gap 3 molar conc11 mmol/LNormal7-13[facility] HospitalCalcium mass conc8.3 mg/dLLow8.6-10.2MCommunity HospitalChloride molar gkoj381 mmol/TQvbkin47-041XfgpwRio Grande HospitalCO2 molar conc26 mmol/LNormal 22-29[facility] HospitalCreatinine mass conc1.90 mg/dLCritically high 0.50-0.90[facility] HospitalGFR/1.73 sq M predicted among blacks MDRD vol rate/area (S/P/Bld)31.8 mL/min/{1.73_m2}Low>60[facility] Comment on above:Result Comment: >60 mL/min/1.73m2 EGFR, calc. for ages 18 and older using theMDRD formula (not corrected for weight), is valid for stablerenal function.GFR/1.73 sq M.predicted MDRD vol rate/area26.2 mL/min/{1.73_m2}Low>60 [facility] HospitalComment on above:Result Comment: >60 mL/min/1.73m2 EGFR, calc. for ages 18 and older using theMDRD formula (not corrected for weight), is valid for stablerenal function.Glucose mass rjmg135 mg/dLCritically pyam80-156TaxncRio Grande HospitalPotassium molar conc4.1 mmol/LNormal 3.5-5.1MMemorial Hospital Northodium molar zmxz776 mmol/IYrffwd783-518 [facility] HospitalUrea nitrogen mass conc25 mg/dLCritically high8-23 [facility] HospitalCBC With Platelet and Differentialon 06-06-2018 Basophils Auto #/vol (Bld)0.0 10*3/uLNormal0.0-0.2M[facility] Basophils/100 WBC Auto (Bld)0.1 %[facility] HospitalEosinophils Auto #/vol (Bld)0.0 10*3/uLNormal0.0-0.7[facility] Eosinophils/100 WBC Auto (Bld)0.0 %[facility] Erythrocyte distribution width Auto Ratio (RBC)13.5 %Oxymih17.5-14.5[facility] HospitalHematocrit Auto Volume Fraction (Bld)35.0 %Low37.0-47.0 [facility] HospitalHemoglobin mass conc (Bld)12.0 g/aTJbmffn00.0-16.0 [facility] HospitalLymphocytes Auto #/vol (Bld)1.0 10*3/uLNormal 1.0-4.8[facility] HospitalLymphocytes/100 WBC Auto (Bld)8.2 %Normal [facility]H Auto Entitic mass (RBC)32.8 pgCritically high 27.0-31.3MAnimas Surgical HospitalHC Auto mass conc (RBC)34.4 %Normal 33.0-37.0[facility] HospitalMCV Auto Entitic volume (RBC)95.3 fLNormal 82.0-100.0[facility] HospitalMonocytes Auto #/vol (Bld)1.0 10*3/uL Critically high0.2-0.8[facility] HospitalMonocytes/100 WBC Auto (Bld) 8.0 %[facility] HospitalNeutrophils Auto #/vol (Bld)10.1 10*3/uL Critically high1.4-6.5[facility] HospitalNeutrophils/100 WBC Auto (Bld)83.7 %[facility] HospitalPlatelets Auto #/vol (Bld)146 10*3/jEYzohfg740-668IoqxpRio Grande HospitalRBC Auto #/vol (Bld)3.67 10*6/uLLow4.20-5.40[facility] HospitalWBC Auto #/vol (Bld)12.1 10*3/uL Critically high4.8-10.8[facility] HospitalXR CHEST (2 VW)on 06-06-2018 XR CHEST [...] Interpreted b y:ANDRA Dominguezigned by:Joss Casas MD06/06/18Final resultNormalRio Grande HospitalBasic Metabolic Panel Reflex Mgon [id number] gap 3 molar conc11 mmol/LNormal7-13[facility] HospitalCalcium mass conc8.9 mg/dLNormal8.6-10.2MCommunity HospitalChloride molar nmlb234 mmol/L Xmfhhz79-805YcwvgRio Grande HospitalCO2 molar conc25 mmol/INeyjme35-49ZbspvRio Grande HospitalCreatinine mass conc0.86 mg/dLNormal0.50-0.90[facility] HospitalGFR/1.73 sq M predicted among blacks MDRD vol rate/area (S/P/Bld)mL/min/{1.73_m2}Normal>60[facility] HospitalComment on above: Result Comment: >60 mL/min/1.73m2 EGFR, calc. for ages 18 and older using theMDRD formula (not corrected for weight), is valid for stablerenal function. GFR/1.73 sq M.predicted MDRD vol rate/areamL/min/{1.73_m2}Normal>60[facility] HospitalComment on above:Result Comment: >60 mL/min/1.73m2 EGFR, calc. for ages 18 and older using theMDRD formula (not corrected for weight), is valid for stablerenal function.Glucose mass aqtq745 mg/dLCritically dimc63-482 [facility] HospitalPotassium reflex Mg4.0 mEq/LNormal3.5-5.1MMemorial Hospital Northodium molar cxpu035 mmol/ZTwlvww534-852CfxmuRio Grande HospitalUrea nitrogen mass conc13 mg/dLNormal8-23[facility] HospitalCBC With Platelet and Differentialon 32-44-5195IFR morphology finding Nom (Bld)NormalNormKeefe Memorial HospitalPlatelet Slide ReviewNormalNormal [facility] HospitalBasophils Auto #/vol (Bld)0.1 10*3/uLNormal0.0-0.2 [facility] HospitalBasophils/100 WBC Auto (Bld)1.0 %[facility] HospitalEosinophils Auto #/vol (Bld)0.0 10*3/uLNormal0.0-0.7[facility] HospitalEosinophils/100 WBC Auto (Bld)0.4 %[facility] HospitalErythrocyte distribution width Auto Ratio (RBC)13.5 %Normal 11.5-14.5[facility] HospitalHematocrit Auto Volume Fraction (Bld)40.5 %Zbzkgv92.0-47.0[facility] HospitalHemoglobin mass conc (Bld)13.7 g/dL Rbznlo61.0-16.0[facility] HospitalLymphocytes Auto #/vol (Bld)2.0 10*3/uLNormal1.0-4.8[facility] HospitalLymphocytes/100 WBC Auto (Bld) 15.5 %[facility] Auto Entitic mass (RBC)32.4 pg Critically high27.0-31.3MAnimas Surgical HospitalHC Auto mass conc (RBC) 33.9 %Khtsim26.0-37.0[facility] HospitalMCV Auto Entitic volume (RBC) 95.6 yXEejapn52.0-100.0[facility] HospitalMonocytes Auto #/vol (Bld) 1.3 10*3/uLCritically high0.2-0.8[facility] HospitalMonocytes/100 WBC Auto (Bld)10.1 %[facility] HospitalNeutrophils Auto #/vol (Bld) 9.4 10*3/uLCritically high1.4-6.5[facility] HospitalNeutrophils/100 WBC Auto (Bld)73.0 %[facility] HospitalPlatelets Auto #/vol (Bld)168 10*3/uNQhnifg329-243PxqjcRio Grande HospitalRBC Auto #/vol (Bld) 4.24 10*6/uLNormal4.20-5.40[facility] HospitalWBC Auto #/vol (Bld)12.9 10*3/uLCritically high4.8-10.8[facility] HospitalPOCT Glucoseon 43-22-1808Pcrarov mass yrgc374 mg/dLCritically vjdi03-179KkksaRio Grande HospitalXR LUMBAR SPINE (2-3 VIEWS)on 49-41-0340XU LUMBAR SPINE (2-3 VIEWS) EXAMINATION: XR LUMBAR [...] L5-S1.Interpreted by:ANDRA Sotoigned by:Tanvir Power MD06/05/inal resultNormal [facility] HospitalBasic Metabolic Panel Reflex Mgon 63-76-4658Vybfx gap 3 molar conc13 mmol/LNormal7-13[facility] HospitalCalcium mass conc9.1 mg/dLNormal8.6-10.2MCommunity HospitalChloride molar ydrc523 mmol/SLlwtxl35-386WujlrRio [facility] HospitalCO2 molar conc23 mmol/LNormal 22-29[facility] HospitalCreatinine mass conc1.08 mg/dLCritically high 0.50-0.90[facility] HospitalGFR/1.73 sq M predicted among blacks MDRD vol rate/area (S/P/Bld)mL/min/{1.73_m2}Normal>60[facility] Comment on above:Result Comment: >60 mL/min/1.73m2 EGFR, calc. for ages 18 and older using theMDRD formula (not corrected for weight), is valid for stablerenal function.GFR/1.73 sq M.predicted MDRD vol rate/area50.4 mL/min/{1.73_m2}Low>60 [facility] HospitalComment on above:Result Comment: >60 mL/min/1.73m2 EGFR, calc. for ages 18 and older using theMDRD formula (not corrected for weight), is valid for stablerenal function.Glucose mass nrxx512 mg/dLCritically djrz00-593DktceRio [facility] HospitalPotassium reflex Mg4.3 mEq/LNormal3.5-5.1 [facility] Centerodium molar usmg860 mmol/VLuksxy189-558AnuxiRio Grande HospitalUrea nitrogen mass conc21 mg/dLNormal8-23[facility] HospitalCB With Platelet No Differentialon 73-48-5957Genoevvvudu distribution width Auto Ratio (RBC)13.4 %Bqxvtf82.5-14.5[facility] HospitalHematocrit Auto Volume Fraction (Bld)44.5 %Nhgauc10.0-47.0[facility] HospitalHemoglobin mass conc (Bld)15.2 g/mXLazxhq05.0-16.0[facility] SouthH Auto Entitic mass (RBC)32.6 pgCritically high27.0-31.3MAnimas Surgical HospitalHC Auto mass conc (RBC)34.3 %Lmsgyw41.0-37.0[facility] HospitalMCV Auto Entitic volume (RBC)95.1 dXNomcxc08.0-100.0[facility] HospitalPlatelets Auto #/vol (Bld)163 10*3/dSRjwfec082-901XnaqwRio Grande HospitalRBC Auto #/vol (Bld)4.68 10*6/uLNormal4.20-5.40[facility] HospitalWBC Auto #/vol (Bld)8.3 10*3/uLNormal4.8-10.8[facility] HospitalFLUORO FOR SURGICAL PROCEDURESon 49-85-1469DSCMML FOR SURGICAL PROCEDURESEXAMINATION: Intraoperative lumbar fusion.CLINICAL HISTORY: [...] the soft tissue anterior to the spinal column.Koi bone intact.Please see procedural note for more detailed.IMPRESSION: INTRAOPERATIVE PLIF L3- L5.Interpreted by:ANDRA Dominguezigned by:Joss Casas MD06/04/18inal resultNormalRio Grande HospitalPOCT Glucoseon 25-15-5609Kppxhku mass ytlx956 mg/bXPkoyjt17-397BrawxRio Grande HospitalPOC Performed onACCU-CHEK NormalArkansas Valley Regional Medical Centerurgical Specimenon 67-17-1849Pftlsayi SpecimenInvalid Interpretation CodeRio Grande HospitalComment on above:Result Comment: [place] [address] FFMIC SURGICAL PATHOLOGY REPORTPatient Name: MARLENI DENNIS Accession No: [id number] Age Sex: 1950 Location: [place] [id number] No: [id number] Collected: 06/04/2018Med Rec No: [id number] Received: 06/05/2018Attend Phys: SHAKA DESIRAE Completed: 06/07/2018Perform [...] two cassettes after a brief decalcification. ALDWA/SCDANCPT: [id number] X1 [id number] [id number] ENGEL M.D. 06/07/2018 Electronically signed out by Page 1 of 1Basic Metabolic Panelon 31-85-7135Rrbyg gap 3 molar conc14 mmol/LCritically high7-13 [facility] HospitalCalcium mass conc9.7 mg/dLNormal8.6-10.2MCommunity HospitalChloride molar pvlw605 mmol/GLsgwhf20-782OfjmxRio Grande HospitalCO2 molar conc25 mmol/JOsnwbi62-33CnfnsR[facility] Hospital Creatinine mass conc1.15 mg/dLCritically high0.50-0.90[facility] HospitalGFR/1.73 sq M predicted among blacks MDRD vol rate/area (S/P/Bld)56.7 mL/min/{1.73_m2}Low>60[facility] HospitalComment on above:Result Comment: >60 mL/min/1.73m2 EGFR, calc. for ages 18 and older using theMDRD formula (not corrected for weight), is valid for stablerenal function.GFR/1.73 sq M.predicted MDRD vol rate/area46.8 mL/min/{1.73_m2}Low>60[facility] HospitalComment on above:Result Comment: >60 mL/min/1.73m2 EGFR, calc. for ages 18 and older using theMDRD formula (not corrected for weight), is valid for stablerenal function.Glucose mass larn301 mg/aKGxdrae09-387DbweuRio Grande HospitalPotassium molar conc3.6 mmol/LNormal3.5-5.1MMemorial Hospital Northodium molar ghsw457 mmol/IYruibs876-905MillxRio Grande HospitalUrea nitrogen mass conc21 mg/dLNormal8-23[facility] HospitalCBC With Platelet No Differentialon 52-81-5759Twuaikphmsw distribution width Auto Ratio (RBC)13.5 %Sejoyz39.5-14.5[facility] HospitalHematocrit Auto Volume Fraction (Bld)44.4 %Uajktf40.0-47.0[facility] HospitalHemoglobin mass conc (Bld)15.5 g/nBJtxnzh86.0-16.0[facility] SouthH Auto Entitic mass (RBC)33.0 pgCritically high27.0-31.3MAnimas Surgical HospitalHC Auto mass conc (RBC)34.9 %Vqfziq20.0-37.0[facility] HospitalMCV Auto Entitic volume (RBC)94.4 iKWmdkck46.0-100.0[facility] Platelets Auto #/vol (Bld)199 10*3/xLKiftmj404-312GrsojR[facility] Hospital RBC Auto #/vol (Bld)4.71 10*6/uLNormal4.20-5.40[facility] HospitalWBC Auto #/vol (Bld)7.0 10*3/uLNormal4.8-10.8[facility] HospitalCulture, MRSA Screenon [id number], MRSA ScreenORDER#: [id number] ORDERED BY: CLIFTON STONE: Nares Nasal COLLECTED: 05/23/18 11:37ANTIBIOTICS AT SERGIO.: RECEIVED : 05/23/18 11:37Culture, MRSA Screen FINAL 05/24/18 12:57 No MRSA isolatedNoGrand River HealthCuthe metrohealth system, Urineon 05-23-2018 Culture, UrineORDER#: [id number] ORDERED BY: CLIFTON STONE: Urine Clean Catch COLLECTED: 05/23/18 12:44ANTIBIOTICS AT SERGIO.: RECEIVED : 05/23/18 12:44Culture, Urine FINAL 05/25/18 10:55 No growth 24 hoursNoGrand River HealthProthrombin Timeon 32-49-7206JHT Coag RelTime (PPP)1.1 {INR}Normal [facility] HospitalComment on above:Result Comment: Recommended INR therapeutic [...] 22.6 secProthrombin time (PT) Coag time (PPP)11.0 sNormal9.6-12.3MCommunity HospitalType and Screen Capture 3 scrn cellon 33-73-5165Ixfiniyvc mass concPATIENT: WENDY ANDRADE LOC: [place] BILL# : [id number] : 1950 SEX: FORDERED BY: CHASE Lua ORDERED : 05/23/2018 09:33 COLLECTED: 05/23/2018 11:41ORDER : [id number] RECEIVED : 05/23/2018 11:41 ---TEST NAME RESULT UNITS RANGES ABN FL STABORH Capture AB POS FAntibody 3 Cell Scrn Captu NEG F---- Normal [facility] HospitalUrinalysis, reflex to cultureon [id number] Reflexed to CultureYESNormKeefe Memorial HospitalBilirubin Ql (U) NegativeNormalNegativeRio Grande HospitalClarity Nom (U)ClearNormal ClearRio Grande HospitalColor Nom (U)YellowNormalStraw/YellRio Grande HospitalGlucose Ql (U)NegativeNormalNegSt. Mary's Medical CenterHemoglobin Test strip Ql (U)NegativeNormalNegSt. Mary's Medical CenterKetones Ql (U)TRACEAbnormalNegSt. Mary's Medical Center Leukocyte esterase Test strip Ql (U)TRACEAbnormalNegSt. Mary's Medical CenterNitrite Test strip Ql (U)NegativeNormalNegSt. Mary's Medical CenterpH Test strip (U)6.0 [pH]Normal5.0-9.0[facility] HospitalProtein Test strip Ql (U)TRACEAbnormalNegMemorial Hospital Northpecific gravity Relative Density (U)1.141Kseluu2.005-1.03[facility] Urobilinogen Test strip Qn (U)0.2 {Dago'U}/dLNormal< 2.0[facility] HospitalUrine Microscopicon 52-00-4281Aaobo LM.LPF #/area (Urine sed)0-1 HyalineNormalRio Grande HospitalRBC Test strip #/vol (U)2-6Opxbug6-5 [facility] HospitalUrine Amorphous1+NormalRio Grande HospitalWBC #/vol (U)1-6Culuod7-2GubwrRio Grande HospitalXR SPINE ENTIRE (2-3 VIEWS)on 49-77-4009IM SPINE ENTIRE (2-3 VIEWS)PREOP NO DICTATION Interpreted by: Barb Wetzel MD Signed by: Barb Wetzel MD 06/08/18 Final resultNoGrand River Health Vital Signs Date TimeVital SignValuePerforming NalvwxoocSpaxdzhe94-56-2673 16:15-0400 Diastolic blood mm[Hg]Jack Vogt II Work Phone: [phone])[address]10-28-2025 16:15-0400 Systolic blood ekagqwue889 mm[Hg]Jackmaricruz Vogt II Work Phone: 1(793)[address] [place], [place] 9040210-28-2025 16:07-0400 Body xoshns066.94 cmDabambi Vogt II Work Phone: [phone])[address] [place], [place] 9040210-28-2025 16:07-0400 Body mass index (BMI) [Ratio]25 kg/v6Vztrksbambi Vogt II Work Phone: [phone])[address] [place], [place] 9040210-28-2025 16:07-0400 Body elhpmp01.93 kgDabambi Vogt II Work Phone: 1(042)[address]10-28-2025 16:07-0400 Heart rate64 /Cora Vogt II Work Phone: 1(567)[address]10-28-2025 16:07-0400 Respiratory rate16 /minDsrikanth Vogt II Work Phone: 1(215)[address] [place], [place] 9040210-28-2025 16:07-0400 SaO2% (BldA) [Mass fraction]98 %Jack Vogt II Work Phone: [phone])[address] [place], [place] 9040210-10-2025 13:28-0400 Body wrxwtwcygeo30.5 [degF]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 PARK ATTENDANT Work Phone: [facility] HospitalDgczjhkkfh62-16-1953 13:28-0400Diastolic blood zxnympiw80 mm[Hg]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 PARK ATTENDANT Work Phone: [facility] HospitalFhpnxjwxul05-74-9143 13:28-0400Heart rate66 /min 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 PARK ATTENDANT Work Phone: [facility] HospitalXxzthyqgwi57-68-6972 13:28-2066QmH0% (BldA) [Mass fraction]98 %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 PARK ATTENDANT Work Phone: [facility] HospitalYwhahkxpxd19-53-7794 13:28-0400Systolic blood udbsbewo754 mm[Hg]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 PARK ATTENDANT Work Phone: [facility] HospitalZtzyavaqsw01-59-5205 11:14-0400Body shljea025.5 cmJack Vogt MD Work Phone: NOSaint [facility]–SmithvilleYriyyvwppm37-60-0150 11:14-0400Body mass index (BMI) [Ratio]23.59 kg/w9XplxviJack Vogt MD Work Phone: NOS[facility]–SmithvilleEfkyvxbkbn88-33-4401 11:14-0400Body ajxdep68.51 kgJack Vogt MD Work Phone: NOS[facility]–SmithvilleQwnpgtrklq17-22-5132 11:14-0400Diastolic blood agpfrecg78 mm[Hg]Jack Vogt MD Work Phone: NOS[facility]–SmithvilleSsrqqvrjwp57-55-8819 11:14-0400Heart rate57 /min Jack Vogt MD Work Phone: NOS[facility]–SmithvilleVngnqymrkg81-47-9536 11:14-1938AsR7% (BldA) [Mass fraction]98 %Jack Vogt MD Work Phone: NOS[facility]–SmithvilleHxfrpcyvfq95-26-8398 11:14-0400Systolic blood tlpdurpk296 mm[Hg]Jack Vogt MD Work Phone: NOS[facility]–SmithvilleVyiazetgsr32-27-2925 12:14-0400Body penrrzyiqtr47 [degF]Jack Vogt II Work Phone: 1([phone] [place], [place] 8517307-25-2025 12:14-0400 Diastolic blood aqnrmmll77 mm[Hg]Jack Vogt II Work Phone: 1(142)[address]07-25-2025 12:14-0400 Heart rate66 /minDaniel Vogt II Work Phone: 1(332)[address] [place], [place] 9040207-25-2025 12:14-0400 Respiratory rate18 /minDaniel Vogt II Work Phone: [phone])[address]07-25-2025 12:14-0400 SaO2% (BldA) [Mass fraction]90 %Jack Vogt II Work Phone: 1(865)[address] [place], [place] 9040207-25-2025 12:14-0400 Systolic blood mm[Hg]Jack Vogt II Work Phone: 1(013)[address] [place], [place] 9040207-25-2025 04:55-0400 Body adkzwf32.4 kgDasherleyel Vogt II Work Phone: 1(688)[address] [place], [place] 9040207-24-2025 07:28-0400 Inhaled oxygen flow rate3 L/minDaniel Vogt II Work Phone: 1(191)[address] [place], [place] 9040207-23-2025 02:12-0400 Body .94 cmDasherleyel Vogt II Work Phone: 1(471)[address] [place], [place] 9040207-23-2025 01:25-0400 SaO2% (BldA) [Mass fraction]96 %Jack Vogt II Work Phone: 1(853)[address]07-23-2025 01:09-0400 Diastolic blood mm[Hg]Jack Vogt II Work Phone: 1(674)[address] [place], [place] 9040207-23-2025 01:09-0400 Heart rate71 /minDaniel Vogt II Work Phone: 1(820)[address] [place], [place] 9040207-23-2025 01:09-0400 Inhaled oxygen flow rate2 L/minDaniel Vogt II Work Phone: [phone])[address]07-23-2025 01:09-0400 Respiratory rate18 /minDaniel Vogt II Work Phone: 1(896)[address]60 [address]07-23-2025 01:09-0400 Systolic blood umqpyhnj052 mm[Hg]Jack Vogt II Work Phone: 1(230)[address] [place], [place] 9040207-22-2025 18:56-0400 Body epyqvphhgzr91.5 [degF]Jack Vogt II Work Phone: [phone])[address] [place], [place] 9040207-22-2025 17:59-0400 Body .94 cmDaniel Vogt II Work Phone: 1(046)[address] [place], [place] 9040207-22-2025 17:59-0400 Body .77 kgDaniel Vogt II Work Phone: 1(477)[address] [place], [place] 9040207-22-2025 16:22-0400 Diastolic blood waihlseo60 mm[Hg]Jack Vogt II Work Phone: 1(462)[address] [place], [place] 9040207-22-2025 16:22-0400 Systolic blood obtcuvje652 mm[Hg]Jack Vogt II Work Phone: 1(857)[address] [place], [place] 9040207-22-2025 16:02-0400 Body ozsbha875.94 cmDaniel Vogt II Work Phone: 1([phone])[address] [place], [place] 9040207-22-2025 16:02-0400 Body mass index (BMI) [Ratio]27.3 kg/h8Xqdfig Vogt II Work Phone: 1(419)[address] [place], [place] 9040207-22-2025 16:02-0400 Body gohqda70.77 kgDaniel Vogt II Work Phone: 1(560)[address] [place], [place] 9040207-22-2025 16:02-0400 Heart rate63 /minDaniel Vogt II Work Phone: 1(247)[address]07-22-2025 16:02-0400 Respiratory rate16 /minDaniel Vogt II Work Phone: 1(797)[address]07-22-2025 16:02-0400 SaO2% (BldA) [Mass fraction]99 %Jack Vogt II Work Phone: [facility]07-16-2025 14:31-0400 Body xiicqbevcgl80.5 [degF]Ana Rosa Hardy PARK ATTENDANT Work Phone: NOSaint [facility]–SmithvilleRtraytypad85-39-9972 14:31-0400Heart rate58 /min 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 PARK ATTENDANT Work Phone: [facility] HospitalAvpfcojjye66-46-5186 14:31-5922LwU9% (BldA) [Mass fraction]98 %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 PARK ATTENDANT Work Phone: NOS[facility]–SmithvilleVbrtcbfztv10-46-5719 16:44-0400Body efsjqo624.5 cmDabambi Vogt MD Work Phone: NOS[facility]–SmithvilleLeoyxihskc01-23-5823 16:44-0400Body mass index (BMI) [Ratio]26.34 kg/t0HzoslaJack Vogt MD Work Phone: NOS[facility]–SmithvilleTiejsymxqb01-03-6682 16:44-0400Body lyghzq53.32 kgJack Vogt MD Work Phone: NOS[facility]–SmithvilleOkrosjqrlm42-19-8812 16:44-0400Diastolic blood xyhvfmzp33 mm[Hg]Jack Vogt MD Work Phone: NOS[facility]–SmithvilleDaocejfzuk37-73-7760 16:44-0400Heart rate76 /min Jack Vogt MD Work Phone: [facility] HospitalKxqcqytiov10-08-3509 16:44-1489HiJ9% (BldA) [Mass fraction]99 %Jack Vogt MD Work Phone: NOS[facility]–SmithvilleMyfblludov79-48-3856 16:44-0400Systolic blood aswgkbad120 mm[Hg]Jack Vogt MD Work Phone: NOS[facility]–SmithvilleOtqbcxmglq51-59-0089 11:40-0400Body .5 cmSoxana Moncada PARK ATTENDANT Work Phone: NOS[facility]–SmithvilleTplpapbqhh33-63-2822 11:40-0400Body mass index (BMI) [Ratio]26.89 kg/x0Wlmteg Micheal PARK ATTENDANT Work Phone: NOS[facility]–SmithvilleObvspftlbq14-68-0439 11:40-0400Body oxziez38.68 kgRenetta Moncada PARK ATTENDANT Work Phone: NOS[facility]–SmithvilleUcdbjjlpzd59-78-2286 11:40-0400Diastolic blood dbnqxeoc10 mm[Hg]Renetta Moncada PARK ATTENDANT Work Phone: NOS[facility]–SmithvilleFauumygydw61-24-8812 11:40-0400Heart rate74 /min Renetta Moncada PARK ATTENDANT Work Phone: NOS[facility]–SmithvilleTtbuumoncr78-38-2982 11:40-0400Respiratory rate16 /minSoxana Moncada PARK ATTENDANT Work Phone: NOS[facility]–SmithvilleBwoltzzizy88-31-5962 11:40-0929FeB0% (BldA) [Mass fraction]97 %Renetta Moncada PARK ATTENDANT Work Phone: NOS[facility]–SmithvilleTelrqpmjis64-24-8231 11:40-0400Systolic blood ziofpkjy915 mm[Hg]Renetta Moncada PARK ATTENDANT Work Phone: NOS[facility]–SmithvilleYsdqiossju82-71-6056 09:40-0400Body qxzvik230.8 cmJack Vogt MD Work Phone: [phone] Luke's North Hospital–SmithvilleXueuesqlqe79-05-1317 09:40-0400Body mass index (BMI) [Ratio]28.08 kg/e2SawbanJack Vogt MD Work Phone: [phone] Luke's [facility] Hospital–SmithvilleApilpzclzi41-34-1903 09:40-0400Body glqtzy11.76 kgJack Vogt MD Work Phone: NOS[facility]–SmithvilleZfxornzxct25-00-4242 09:40-0400Diastolic blood sepkmdon60 mm[Hg]Jack Vogt MD Work Phone: NOS[facility]–SmithvilleJvtcyvqizg79-83-7815 09:40-0400Heart rate62 /min Jack Vogt MD Work Phone: NOS[facility]–SmithvilleKkweambbtb78-43-3045 09:40-6031PjS4% (BldA) [Mass fraction]96 %Jack Vogt MD Work Phone: 1(704)483-[address] [place], [place] [address]Zizwdvdjaf44-97-7314 09:40-0400Systolic blood itpdmqyq095 mm[Hg]Jack Vogt MD Work Phone: 1(930)[facility] HospitalC[facility] HospitalKxbrqiftji05-74-7088 11:41-0400Body qjimux667.8 cmDabambi Vogt MD Work Phone: 1(300)[facility] HospitalCwuuxebdtm51-34-2515 11:41-0400Body mass index (BMI) [Ratio]28.44 kg/b6BqmruzJack Vogt MD Work Phone: 1(112)[facility] HospitalC[facility] Memorial HospitalOszhtrxypy54-79-9565 11:41-0400Body emhmpi84.67 kgJack Vogt MD Work Phone: 1(508)[facility] [place], [place] [address]Pkfffetqpt81-02-1164 11:41-0400Diastolic blood bbkoqhii82 mm[Hg]Jack Vogt MD Work Phone: 1(388)[facility] HospitalC[facility] Memorial HospitalOnkxuxloeb89-12-3009 11:41-0400Heart rate65 /min Jack Vogt MD Work Phone: 1(238)[facility] [place], [place] [address]Wxsqrdtcpw37-43-5378 11:41-1164QnW0% (BldA) [Mass fraction]96 %Jack Vogt MD Work Phone: 1(837)[facility] [place], [place] [address]Awjpxhperz59-72-1823 11:41-0400Systolic blood elyhnxmp676 mm[Hg]Jack Vogt MD Work Phone: 1(168)[facility]-[address] [place], [place] [address]Bziuppktor00-65-8320 13:19-0500Blood Pressure LocationPatricrosita CARDENAS [facility]03-03-2025 13:19-0500Body njdsaffeajq88.6 [degF]Alfredo CARDENAS [facility]03-03-2025 13:19-0500Diastolic blood mm[Hg]Alfredo CARDENAS [facility]03-03-2025 13:19-0500Heart rate70 /minAlfredo CARDENAS [facility]03-03-2025 13:19-0500Respiratory rate16 /minPatrick CARDENAS [facility]03-03-2025 13:19-0500Systolic blood aqxlcshs900 mm[Hg]Alfredo CARDENAS [facility]03-07-2024 14:31-0500Body hcgcoc800.02 cmII Jack Vogt Work Phone: [facility]03-07-2024 14:31-0500 Body mass index (BMI) [Ratio]31 kg/m2II Jack Vogt Work Phone: [facility]03-07-2024 14:31-0500 Body vzpzhu95.46 kgII Jack Vogt Work Phone: [facility]02-05-2024 12:31-0500 Blood Pressure LocationPaYY, Inc[facility]02-05-2024 12:31-0500Diastolic blood mircpipc40 mm[Hg]Alfredo CARDENAS [facility]02-05-2024 12:31-0500Heart rate62 /minPatrick CARDENAS [facility]02-05-2024 12:31-0500Respiratory rate16 /minPatrick CARDENAS [facility]02-05-2024 12:31-0500Systolic blood hsgvhkim509 mm[Hg]Alfredo CARDENAS [facility]01-09-2023 12:59-0500Blood Pressure LocationPatrick CARDENAS [facility]01-09-2023 12:59-0500Diastolic blood yhbhnpqb50 mm[Hg]Alfredo CARDENAS [facility]01-09-2023 12:59-0500Heart rate78 /minPatrick CARDENAS [facility]01-09-2023 12:59-0500Respiratory rate16 /minPatrick [employer] [facility]01-09-2023 12:59-0500Systolic blood fqsjfnyn562 mm[Hg]Alfredo CARDENAS [facility]06-17-2022 10:16-0400Blood Pressure LocationPatrick [employer] [facility] 06-17-2022 10:16-0400Diastolic blood pgzecmjc84 mm[Hg] Alfredo CARDENAS [facility] 06-17-2022 10:16-0400Heart rate56 /minPatrick Bioaxial [facility] 06-17-2022 10:16-0400Respiratory rate16 /minPatrick [employer] [facility] 06-17-2022 10:16-0400Systolic blood yojprczq809 mm[Hg] Alfredo [employer] [facility] Encounters Encounter DateEncounter TypeCare ProviderFacilityStart: 75-33-2977vfrdaxelvi Alfredo Moya WATERSFacility:DARREL BellevueStart: 07-15-2025 End: 97-61-4549gczcwtisefYalpgt Berry II Work Phone: [phone]-Enakvbzcc [facility] SandStart: 07-15-2025 End: 64-50-8061Goqkcrd encounter Sergei Patino MD-[facility] Work Phone: Start: 07-11-2025 End: 60-16-6005Zgcnoezlz Result EncounterGeneric External Data ProviderNOMS External Department UnsolicitedStart: 07-11-2025 End: 09-54-3847Ucgwsadgu Result EncounterGeneric External Data ProviderNOMS External Department UnsolicitedStart: 25-40-5834Swo-patient / Non-visitElsy Patino MD-[facility] Work Phone: Start: 92-48-5883Dgi-patient / Non-visitElsy Patino MD-[facility] Work Phone: Start: 07-09-2025 End: 01-90-3408Nzzacribt Result EncounterGeneric External Data ProviderNOMS External Department UnsolicitedStart: 07-09-2025 End: 05-95-4693Isahxkkhd Result EncounterGeneric External Data ProviderNOMS External Department UnsolicitedStart: 06-27-2025 End: 49-52-1278Aytkdarxu encounterDejose Gonzalez PARK ATTENDANT Work Phone: noms [facility] ACOStart: 06-27-2025 End: 36-58-8591Nyod visit est pt mod-hi severity 40 minutes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 PARK ATTENDANT Work Phone: noms [facility] ACOComment on above:Chronic kidney disease, stage 4 (severe) (HCC) (Primary Dx); Chronic diastolic congestive heart failure (HCC); 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; Benign essential hypertension; Degenerative lumbar spinal stenosis; Radiculopathy of lumbar region; Spinal stenosis, lumbar region with neurogenic claudication; Spondylolisthesis of lumbar region; Need for home health care; Routine lab draw; Advanced care planning/counseling discussionStart: 06-27-2025 End: 34-89-0869Cdthcjq encounter status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 NP Work Phone: noms HealthcareStart: 06-09-2025 End: 00-50-0799Ixniyh flowsLuis Vogt MD Work Phone: noms [place] [facility] MedinceStart: 06-09-2025 End: 52-36-4313Cezdda flowsLuis Vogt MD Work Phone: noms [facility] MedinceStart: 06-09-2025 End: 96-12-6769Ymlkauxpb Result EncounterJack Vogt MD Work Phone: noms External Department UnsolicitedStart: 06-09-2025 End: 07-37-1849Mcrxfm outpatient visit 40 minutesJack Vogt MD Work Phone: noms [place] [facility] MedinceComment on above:Chronic kidney disease, stage 4 (severe) (HCC) (Primary Dx); Benign essential hypertension ; Functional diarrhea; 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 ; Chronic diastolic congestive heart failure (HCC); HypokalemiaStart: 06-09-2025 End: 16-11-3232btciqfobxbLBSNCD B BERRYNot AvailableStart: 04-08-2025 End: 04-91-9109Ystbjfqdsy and management of inpatientObaaparna Valdez MD-[address] [place] [address] Work Phone: Start: 19-28-7808Fix-patient / Non-visitJolala Arrington MD-[facility] Work Phone: Start: 04-08-2025 End: 81-37-9486opjwtgaescVnbwqp Berry II Work Phone: [facility] Work Phone: Start: 04-08-2025 End: 49-95-5799Ozuzxus encounter Sergei Patino MD-[facility] [place] Work Phone: Start: 04-04-2025 End: 94-36-9288doamrupvmqZAARParkview Health Montpelier Hospitaltart: 04-02-2025 End: 29-34-0188Evqv visit est pt mod-hi severity 40 minutesDejose Gonzalez PARK ATTENDANT Work Phone: noms [facility] ACOComment on above:Benign essential hypertension (Primary Dx); Chronic kidney disease, stage 4 (severe) ([facility]); Localized edema; Right flank pain; Routine lab drawStart: 04-02-2025 End: 85-32-1740Lclkjsq encounter statusDejose Gonzalez PARK ATTENDANT Work Phone: noms HealthcareStart: 03-25-2025 End: 11-29-2997BvtfukHvtei Jodie LPNNOMS CI FMComment on above:Benign essential hypertension ; Gastroesophageal reflux disease, unspecified whether esophagitis present; Insomnia due to medical conditionStart: 03-24-2025 End: 54-88-3705yhpqwmopzfWDIIVH B BERRYNot AvailableStart: 03-24-2025 End: 18-97-9882Wwsayqvfqnsh care manage srvc 14 day dischargeDsrikanth Vogt MD Work Phone: noms CI FMComment on above: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 (Primary Dx); Type 2 diabetes mellitus with stage 4 chronic kidney disease, without long-term current use of insulin (HCC); Insomnia due to medical condition; Chronic kidney disease, stage 4 (severe) ([facility]); Primary osteoarthritis of both kneesStart: 48-06-5527Oquiawcqvp and management of inpatientCALEB T [facility]rontart: 03-13-2025 Evaluation and management of inpatientCALEB T [facility]art: 08-58-7672Udmszxbksa and management of inpatientCALEB T [facility]art: 33-86-8410Spsgoxghlr and management of inpatientCALEB T [facility]rontart: 03-13-2025 End: 70-11-2095Cabrzzistg and management of inpatientJEFFERY Centervilletart: 02-25-2025 End: 38-00-7164Mogmii Jason Moncada PARK ATTENDANT Work Phone: NOMS CI FMStart: 02-25-2025 End: 19-74-4359Jmimct Jason Moncada PARK ATTENDANT Work Phone: NOMS CI FMStart: 02-25-2025 End: 91-53-6636Npevcf outpatient visit 25 minutesShrenee Moncada PARK ATTENDANT Work Phone: NOMS CI FMComment on above:Thyroid nodule (CMS/HCC) (Primary Dx); 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/HCC); Chronic kidney disease, stage 4 (severe) (CMS/HCC); Hair loss; Other fatigue; Weight loss; Depressive disorder (CMS/HCC); Decreased estrogen levelStart: 02-25-2025 End: 06-42-9808ndldlgccjwQTTRAM M SHIVELYNot AvailableStart: 01-02-2025 End: 83-65-4802Rvyvkg Berenice Vogt MD Work Phone: NOMS CI FMStart: 01-02-2025 End: 76-38-7688Jbhpsz Berenice Vogt MD Work Phone: NOMS CI FMStart: 01-02-2025 End: 25-82-8399cuftausbkdVTTIID B BERRYNot AvailableStart: 01-02-2025 End: 28-20-4199Hztbuv outpatient visit 25 minutesJack Vogt MD Work Phone: NOMS CI FMComment on above:Stage 3b chronic kidney disease (HCC) (CMS/HCC) (Primary Dx); Pulmonary fibrosis, unspecified (CMS/HCC); Localized edema; Anxiety; Depressive disorder (CMS/HCC)Start: 12-12-2024 End: 29-50-7325Zgtwir Berenice Vogt MD Work Phone: NOMS CI FMStart: 12-12-2024 End: 76-42-5643Qthxxv flowsheetJack Vogt MD Work Phone: noms CI FMStart: 12-12-2024 End: 60-63-5831fuvogpweqnCWVXLO B BERRYNot AvailableStart: 12-12-2024 End: 05-64-9652Rzyab of hemosiderin, quantJack Vogt MD Work Phone: [facility] Work Phone: Start: 12-12-2024 End: 35-54-1420Qeltjpv encounter procedureJack Vogt MD Work Phone: noms CI FMComment on above:Routine general medical examination at health care facility (Primary Dx); ACP (advance care planning); Spinal stenosis, lumbar region with neurogenic claudication; Stage 3b chronic kidney disease (HCC) (CMS/HCC); Pulmonary fibrosis, unspecified (CMS/HCC); Type 2 diabetes mellitus with diabetic peripheral angiopathy without gangrene (CMS/HCC); Localized edemaStart: 11-18-2024 End: 08-14-2348juvwhiyxnuHumalbm R WATERSFacility:EU BellevueStart: 11-18-2024 End: 35-65-8119Yexoluy encounter procedureAlfredo CARDENAS [facility] start: 11-03-2024 End: 66-54-3191XfvwbjQtpzhc B Berry MD Work Phone: noms CI FMComment on above:AnxietyStart: 09-30-2024 End: 89-25-6237rjmpgcxmtkOqjzbix R WATERSFacility:EU BellevueStart: 09-30-2024 End: 76-28-5936Zchnasz encounter procedureAlfredo CARDENAS [facility] start: 09-20-2024 End: 51-98-6528Lochegidu Result EncounterGeneric External Data ProviderNOMS External Department UnsolicitedStart: 09-20-2024 End: 73-82-7631Pifeoeicq Result EncounterGeneric External Data ProviderNOMS External Department UnsolicitedStart: 09-16-2024 End: 82-49-3164YzwcswWhvxjz B Berry MD Work Phone: NOUZ FMComment on above:Insomnia due to medical conditionStart: 09-13-2024 End: 87-05-4986Tdguouhoo Result EncounterGeneric External Data ProviderNOMS External Department UnsolicitedStart: 09-13-2024 End: 55-10-3644Nbkcterec Result EncounterGeneric External Data ProviderNOMS External Department UnsolicitedStart: 04-24-2024 End: 18-38-3987gdwtpkantbDIJPHD [facility] Start: 03-19-2024 End: 82-15-2438aihfzopuecAhnogl X OrzechFacility:EU BellevueStart: 03-19-2024 End: 60-41-4440Zmaisdt encounter procedureAurora X Orzech [facility] start: 87-50-6255ltuzttbshrNiibhv X OrzechFacility:EU BellevueStart: 02-05-2024 End: 58-53-1534rsfmjjdhtyQF Jack Vogt Work Phone: [facility] Work Phone: Start: 02-05-2024 End: 07-35-8274Wwjlvuz encounter procedureII Jack Vogt Work Phone: [facility] Work Phone: Start: 11-23-2023 End: 37-51-5756Keurhkl encounter procedureII Jack Vogt Work Phone: [facility] Work Phone: Start: 10-23-2023 End: 68-55-6550Fcvjajr encounter procedureAlfredo Moya CARDENAS [facility] start: 10-18-2023 End: 41-12-7150Scghbdayb Result EncounterGeneric External Data ProviderNOMS External Department UnsolicitedStart: 10-18-2023 End: 09-00-9723Opyoggyoy Result EncounterGeneric External Data ProviderNOMS External Department UnsolicitedStart: 01-18-2023 End: 97-09-9807gwhuewqtleLIBOQKD BOESFacility:T9Taxph: 01-10-2023 End: 13-15-5755nvaosneysiXYAIUQH BOESFacility:G6Unjnv: 09-26-2022 End: 25-86-4010Lcnpwqn encounter procedureAlfredo CARDENAS [facility] start: 09-07-2022 End: 13-47-8024ojeobwoksbQKMDNJ SHIVELYFacility:H6Anotk: 08-29-2022 End: 27-72-8220evuqyjsrgvRTLTFWZ WATERSFacility:H5Aigcy: 03-16-2022 End: 06-06-0962aepgxpzsyvDSXSDPV TUCKERFacility:I3Xhzkg: 03-04-2022 End: 29-94-5470Dpfcadg encounter procedureAlfredo CARDENAS [facility] start: 02-22-2022 End: 62-17-1456stlajhxjsfBVKKGEY WATERSFacility:V0Umigs: 02-16-2022 End: 90-47-5755cacyzqsljhFKDDKPP TUCKERFacility:A2Ozers: 02-04-2022 End: 05-52-0333riheizphpiZWMUKIU TUCKERFacility:X1Vybqr: 02-02-2022 End: 25-80-2833Wouazuq encounter procedureTHOMAS Vogt Work Phone: [facility] Start: 01-31-2022 End: 48-40-9631hawbhscdljSPIBDZK TUCKERFacility:P1Rvzph: 06-04-2018 End: 75-55-2627Tfkrgtayim and management of inpatientBO [facility] Districttart: 05-23-2018 End: 74-29-1532Hzciozu encounterBO [facility] Districttart: 05-23-2018 End: 24-30-5850Rkatvvf encounterBO [facility] Procedures DateProcedureProcedure DetailPerforming ClinicianStart: 90-69-9732PRM URINE T PROTEIN CREAT RATIOGeneric External Data ProviderStart: 87-29-5760BZRC CBC WITH PLATELET NO DIFFERENTIALGeneric External Data ProviderStart: 06-27-2025 Comprehensive metabolic panelJack Vogt MD Work Phone: Start: 86-13-9158YOP PRO BNPJack Vogt MD Work Phone: Start: 06-81-1017VSL CMP (CMP) (FOR REMOTE [facility] USE) Jack Vogt MD Work Phone: Start: 80-31-9594OED W/REFLEX O7StgutiJack Vogt MD Work Phone: Start: 14-04-4971Zmpzkamk screenEarl HaleyComment on above:Result Comment: PERFORMED BY: [address] [place] [address] PATHOLOGIST SAXOPHONE PLAYER ELIZABETH MOREL M.D.Start: 77-68-0678Ddqpb chest X-rayDabambi Vogt II Work Phone: Start: 50-52-7564IV of abdomen and pelvis without contrastDabambi Vogt II Work Phone: Start: 68-11-3121Kkldbbummq glycosylated w0uYrdseeJack Vogt MD Work Phone: Start: 07-72-5066Sjf abdomen w/o & w/contrast material Generic External Data ProviderStart: 06-95-6481NEO CREATININEGeneric External Data ProviderStart: 02-05-2024 End: 47-15-1010Yjfnngscd mammography of bilateral breastsII Jack Vogt Work Phone: Start: 56-21-9824Wrznlo X-rayII Jack Vogt Work Phone: Start: 51-62-8611G-ray of both kneesII Jack Vogt Work Phone: Start: 78-52-2528NK LEG LEFT VENOUS + DOPPLERGeneric External Data ProviderStart: 37-98-5224Ubtiqyphh mammography of bilateral breastsII Jack Vogt Work Phone: Start: 71-63-9739GcnwnfvvlwcZegyjqn ProviderStart: 28-76-1127Otzhdbb of coronary artery bypass graftingHistory of coronary artery bypass surgeryGeneric ProviderStart: 26-34-7376Qtaohng of placement of stent for coronary artery diseaseHistory of coronary artery stent placementGeneric ProviderStart: 77-17-9763PJDNWSJPF SPIROMETRY RTBO YOOStart: 61-50-6682LANOM OXIMETRY, CONTINUOUSBO YOOStart: 93-86-5824DBFOVTMBJ SPIROMETRY RTBO YOOStart: 26-51-1545EQKUPCPPA SPIROMETRY RTBO YOOStart: 66-45-8709YSHTN OXIMETRY, CONTINUOUSBO YOOStart: 42-94-7498QGRMBOEHL SPIROMETRY RTBO YOOStart: 06-07-2018 INCENTIVE SPIROMETRY RTBO YOOStart: 05-86-2359NVKCNYSD OXYGEN THERAPY PROTOCOLBO YOOStart: 09-18-7963QKXCA OXIMETRY, CONTINUOUSBO YOOStart: 12-87-3429GYKWIPRQO PATIENTBO YOOStart: 31-64-0927VU CONSULT TO HOME CARE NEEDSBO YOOStart: 39-28-1827KTWQQNUJL SPIROMETRY RTBO YOOStart: 16-59-0064Xhuut count complete auto&auto difrntl wbcBO YOOStart: 56-25-1613Hcfkwmdqhutvl metabolic panelBO DESIRAE Start: 18-20-1257KJVDK OXIMETRY, CONTINUOUSBO YOOStart: 17-86-6456LPWRDQ AND OUTPUTBO YOOStart: 61-59-2500FYDSE OXIMETRY, CONTINUOUSBO YOOStart: 06-07-2018 INCENTIVE SPIROMETRY RTBO YOOStart: 59-85-9315VYMPBNUAX SPIROMETRY RTBO DESIRAE Start: 22-99-0797LZOJU OXIMETRY, CONTINUOUSBO YOOStart: 29-37-7822WPHSDHSJT SPIROMETRY RTBO YOOStart: 69-71-4986RVOBOYESQ SPIROMETRY RTBO YOOStart: 75-68-2016GHMLJ OXIMETRY, CONTINUOUSBO YOOStart: 47-75-4512PCKGCXUAM SPIROMETRY RTBO YOOStart: 79-67-7825QPHCZZSIQ SPIROMETRY RTBO YOOStart: 97-32-8728VGPES OXIMETRY, CONTINUOUSBO YOOStart: 96-95-8089BSLDKZSFU SPIROMETRY RTBO YOOStart: 42-15-2418UOYUNEFPO SPIROMETRY RTBO YOOStart: 06-82-7034GFZUGCMM OXYGEN THERAPY PROTOCOLBO YOOStart: 45-51-8383BQQLK OXIMETRY, CONTINUOUSBO YOOStart: 06-06-2018 Radiologic exam chest 2 viewsBO YOOStart: 80-23-0173FSCEANOKJ SPIROMETRY RTBO YOOStart: 04-33-4235Hrnys metabolic panel calcium totalBO YOOStart: 06-06-2018 Blood count complete auto&auto difrntl wbcBO YOOStart: 05-53-3183LHKOU OXIMETRY, CONTINUOUSBO YOOStart: 07-89-0144LDYQLZ AND OUTPUTBO YOOStart: 95-69-4434DYRAT OXIMETRY, CONTINUOUSBO YOOStart: 14-92-9994STWSBEX COMMUNICATIONBO YOOStart: 74-93-0795OWHNTORZT SPIROMETRY RTBO YOOStart: 10-66-0203YDPLTBGPT SPIROMETRY RT SHAKA YOOStart: 98-79-4276HIRAR OXIMETRY, CONTINUOUSBO YOOStart: 06-05-2018 INCENTIVE SPIROMETRY RTBO YOOStart: 39-19-4747DEXMDTXQV SPIROMETRY RTBO DESIRAE Start: 10-82-9855FLELD OXIMETRY, CONTINUOUSBO YOOStart: 84-74-5962BEEHMRMEQ SPIROMETRY RTBO YOOStart: 98-74-4988JDKJMIBTI SPIROMETRY RTBO YOOStart: 88-30-3164KHOQB OXIMETRY, CONTINUOUSBO YOOStart: 79-80-8204RFDVDAFIZ SPIROMETRY RTBO YOOStart: 58-65-4213Ywbhd spine lumbosacral 2/3 viewsBO YOOStart: 54-98-2536ZRQFKFYWQ SPIROMETRY RTBO YOOStart: 86-98-9883ZGNKI OXIMETRY, CONTINUOUSBO YOOStart: 97-96-5168ELDXSLDO OXYGEN THERAPY PROTOCOLBO YOOStart: 05-37-5649AFQLTNSFW SPIROMETRY RTBO YOOStart: 23-51-2041Mdmlq count complete auto&auto difrntl wbcBO YOOStart: 78-98-4342Dcquabpolyfkl metabolic panelBO DESIRAE Start: 83-93-4969FUTZQCU HEELS OFF OF BEDBO YOOStart: 29-15-2062EYLJ OF BED 60 DEGREES OR LESSBO YOOStart: 19-02-8744LWBEJST COMMUNICATIONBO YOOStart: 26-97-1262MKLP PATIENTBO YOOStart: 12-63-8554LRGVR OXIMETRY, CONTINUOUSBO DESIRAE Start: 97-70-8150QFSYSUUX TOLERATEDBO YOOStart: 49-44-2607NONNDSBB PATIENTBO YOOStart: 42-36-4825OXNCXTBO REMOVALBO YOOStart: 48-05-8837LIBJS WEIGHTSBO DESIRAE Start: 92-47-1055EKQKUC AND OUTPUTBO YOOStart: 31-41-9677WI EVAL AND TREATBO DESIRAE Start: 53-73-1281MM EVAL AND TREATBO YOOStart: 77-64-0685UHJLK OXIMETRY, CONTINUOUSBO YOOStart: 12-14-2151NOUXQYPHR SPIROMETRY RTBO YOOStart: 06-04-2018 INCENTIVE SPIROMETRY RTBO YOOStart: 43-20-3479RAFLO OXIMETRY, CONTINUOUSBO DESIRAE Start: 91-93-8045WJLNSRVUE SPIROMETRY RTBO YOOStart: 74-27-3520WNJZF INTERMITTENT PNEUMATIC COMPRESSION DEVICEBO YOOStart: 41-51-0303OYQFH OXIMETRY, CONTINUOUSBO YOOStart: 94-04-9920VQDDLLF DIET TOLERATED (NURSING COMMUNICATION)SHAKA YOOStart: 55-25-5450FISUYWYN INDWELLING CATHETHERBO YOOStart: 30-51-4181EDEHNEY HOBBO YOOStart: 50-61-1292GQIA CODEBO YOOStart: 06-04-2018 INITIATE OXYGEN THERAPY PROTOCOLBO YOOStart: 39-62-7667LOMAXI AND OUTPUTBO DESIRAE Start: 20-03-5579PCQGH/VASCULAR CHECKSBO YOOStart: 33-15-0954ZWIZSO PHYSICIAN (SPECIFY)SHAKA YOOStart: 89-47-6744DXCWJRY CESSATION EDUCATIONBO YOOStart: 39-64-9558LUIQP SIGNSBO YOOStart: 94-91-9659TBNIL CAREBO YOOStart: 06-04-2018 DIET GENERALBO YOOStart: 82-69-7940AQLALFNSN MONITORINGBO YOOStart: 06-04-2018 Blood count complete automatedBO YOOStart: 48-07-2799Nmxfnwjuakwuq metabolic panelBO YOOStart: 98-22-8462DMBLXXX STATUS (FROM ED OR OR/PROCEDURAL)SHAKA DESIRAE Start: 84-06-3761MGOVACWN PATIENTBO YOOStart: 47-46-8980BIZDNF FOR SURGICAL PROCEDURESBO YOOStart: 54-55-5433YBLHCEGJ PATHOLOGYBO YOOStart: 06-04-2018 SURGICAL PATHOLOGYBO YOOStart: 76-14-2062IXK GLUCOSE FINGERSTICKBO YOOStart: 10-54-8076VJPE GLUCOSEBO YOOStart: 22-25-7163Xtangjh bacterial quanttative colony count urineBO YOOStart: 17-81-6204Pzdtazqiech urinalysisBO YOOStart: 28-45-7928OGEK AND SCREENBO YOOStart: 24-73-5972Dvp prsmptv pthgnc organism scrn w/colony estimjBO YOOStart: 19-70-1898Zrcyv entir thrc lmbr crv sac spi w/skull 2/3 vwBO YOOStart: 73-51-3627Mzhxz count complete automatedBO YOOStart: 37-25-8858Bgbcgivyzqe timeBO YOOStart: 96-94-3359FOXGC RT REFLEX TO CULTUREBO YOOStart: 66-20-3661Lkcos metabolic panel calcium totalBO YOOStart: 05-23-2018 EKG 12-LEADBO YOOCholecystectomyPatrick Bioaxial Colonoscopyeasy2comply ([employer]) Procedure on backPatrick Bioaxial Tonsillectomyeasy2comply ([employer]) Plan of Treatment DateCare ActivityDetailAuthorStart: 10-71-1906Anrmymwnu for malignant neoplasm of colonNOMS HealthcareStart: 03-27-2026Medicare Annual Wellness (AWV)Medicare Annual Wellness (AWV)NOMS HealthcareStart: 06-27-2025 End: 98-97-1049Btggywe encounter babnigkxz71/10/2025 12:00 PM EDT Office Visit [facility] [address] [place] [address] 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, PARK ATTENDANT [address] [place] [address] NOM[facility] ACOStart: 06-23-2025 End: 27-03-4533Ltpugcr encounter venjyxqla99/06/2025 3:30 PM EDT Office Visit [facility] [place] [facility] [address] [facility] [address] [place] [id number] Jack Vogt MD [address] [facility] [address] [place] [address] NOM[facility] [place] [facility] MedinceStart: 06-09-2025 End: 11-33-2171Odykdcohtglhw metabolic 2000 panel - Serum or PlasmaComprehensive metabolic panel Lab Routine Chronic kidney disease, stage 4 (severe) (HCC) Expected: 06/09/2025 (Approximate), Expires: 06/09/2026NOSC HealthcareComment on above:Expected: 06/09/2025 (Approximate), Expires: 06/09/2026Start: 06-09-2025 End: 45-89-0811Zezzyzjhufq peptide B [Mass/volume] in BloodB-type natriuretic peptide Lab Routine Chronic kidney disease, stage 4 (severe) (HCC) Chronic diastolic congestive heart failure (HCC) Expected: 06/09/2025 (Approximate), Expires: 06/09/2026[facility] Work Phone: Comment on above:Expected: 06/09/2025 (Approximate), Expires: 06/09/2026Start: 06-09-2025 End: 30-43-6177QUS W/REFLEX TO FT4TSH W/REFLEX TO FT4 Lab Routine Chronic kidney disease, stage 4 (severe) (HCC) Expected: 06/09/2025(Approximate), Expires: 06/09/2026NOSC HealthcareComment on above:Expected: 06/09/2025 (Approximate), Expires: 06/09/2026Start: 06-09-2025 End: 54-72-3575Hqjqknu encounter umblfebld23/22/2025 11:15 AM EDT Office Visit [facility] [place] [address] [facility] [address] [place] [address] Jack Vogt MD [address] [facility] [address] [place] [address] ArrivedNOMS [place] Champion MedinceComment on above:ArrivedStart: 05-26-2025 End: 75-64-8160Nhfzecu encounter mnxkhonqf59/08/2025 3:30 PM EDT Office Visit [facility] [address] [facility] [address] [place] [address] Jack Vogt MD [address] [facility] [address] [place] [address] NOMS CI FMStart: 66-63-3326WHUMR-19 Vaccine ( season)COVID-19 Vaccine ( season)NOMS HealthcareStart: 05-19-2025 Influenza vaccinationNOSC HealthcareStart: 54-49-1095YhqdpmjvhMetroHealth Main Campus Medical Centertart: 72-37-6225Heeznkfa to rehabilitation physicianMetroHealth Main Campus Medical Centertart: 84-13-6919JpoxyqwhxMetroHealth Main Campus Medical Centertart: 44-48-7890RzbaaprpkMetroHealth Main Campus Medical Centertart: 86-49-9411Wetthati therapy procedureMetroHealth Main Campus Medical Centertart: 11-80-6472Fftbqams to occupational therapistBrecksville Va / Crille Hospital CenterStart: 04-08-2025 [facility] Medical Centertart: 31-01-9739Jxtlbzxn to loader malt house [facility] Centertart: 33-72-6891Ymejfdlh to order takers supervisor [facility] Centertart: 63-84-4017Pnpiexlb admissionMetroHealth Main Campus Medical Centertart: 04-02-2025 End: 26-47-3958PAW W Auto Differential panel - BloodCBC and differential Lab Routine Benign essential hypertension Chronic kidney disease, stage 4 (severe) (HCC) Localized edema Expected: 04/02/2025 (Approximate), Expires: 04/02/2026 [facility] Work Phone: Comment on above:Expected: 04/02/2025 (Approximate), Expires: 04/02/2026Start: 04-02-2025 End: 74-56-0888Xcegcvorzhvxe metabolic 2000 panel - Serum or PlasmaComprehensive metabolic panel Lab Routine Benign essential hypertension Chronic kidney disease, stage 4 (severe) (HCC) Localized edema Expected: 04/02/2025 (Approximate), Expires: 04/02/2026NOSC HealthcareComment on above:Expected: 04/02/2025 (Approximate), Expires: 04/02/2026Start: 04-02-2025 End: 25-48-5037CADNYUWUIA, COMPLETE W/REFLEX TO CULTUREURINALYSIS, COMPLETE W/REFLEX TO CULTURE Lab Routine Right flank pain Expected: 04/02/2025 (Approxim ate), Expires: 04/02/2026NOSC HealthcareComment on above:Expected: 04/02/2025 (Approximate), Expires: 04/02/2026Start: 80-75-9660Bgkiutgodm A1c measurement Diabetes: Hemoglobin A3JOREK HealthcareStart: 02-25-2025 End: 16-21-6995ZPE Skeletal system Views for bone densityDEXA bone density Imaging Routine Decreased estrogen level Expected: 02/25/2025, Expires: 02/25/2026NOSC HealthcareComment on above:Expected: 02/25/2025, Expires: 02/25/2026Start: 02-25-2025 End: 35-46-1811OZ Thyroid glandUS thyroid Imaging Routine Thyroid nodule (CMS/HCC) Hair loss Other fatigue Weight loss Expected: 02/25/2025, Expires: 02/25/2026[facility] Work Phone: Comment on above:Expected: 02/25/2025, Expires: 02/25/2026Start: 02-25-2025 End: 44-20-4460Qpicqek encounter luejvpdgp48/10/2025 11:30 AM EDT Office Visit [facility] [address] [place] [address] Renetta Moncada NP [address] [place] [address] ArrivedNOSC CI FMComment on above:ArrivedStart: 86-75-4646Kmtqstmxz for malignant neoplasm of breastMammogramNOSC Healthcare Start: 01-02-2025 End: 94-04-4784Yzsraed encounter liimsueot16/17/2025 9:30 AM EDT Office Visit [facility] [address] [place] [address] Jack Vogt MD [address] [place] [address] [facility] FMStart: 12-12-2024 End: 52-65-5027Pwiwjzgmpdzsp metabolic 2000 panel - Serum or PlasmaComprehensive metabolic panel Lab Routine Stage 3b chronic kidney disease (HCC) ([facility]/HCC) Expected:12/12/2024 (Approximate), Expires: 12/12/2025[facility] HealthcareComment on above:Expected: 12/12/2024 (Approximate), Expires: 12/12/2025Start: 12-12-2024 End: 03-45-0008Ktyqo 1996 panel - Serum or PlasmaLipid panel Lab Routine Type 2 diabetes mellitus with diabetic peripheral angiopathy without gangrene ([facility]/HCC) Expected: 12/12/2024 (Approximate), Expires: 12/12/2025[facility] HealthcareComment on above:Expected: 12/12/2024 (Approximate), Expires: 12/12/2025Start: 03-27-2025Medicare Annual Wellness (AWV)Medicare Annual Wellness (AWV)[facility] HealthcareStart: 12-12-2024 End: 17-20-7450Uzoszehbfoe [Units/volume] in Serum or PlasmaTSH Lab Routine Localized edema Expected: 12/12/2024 (Approximate), Expires: 12/12/2025[facility] Work Phone: Comment on above:Expected: 12/12/2024 (Approximate), Expires: 12/12/2025Start: 12-12-2024 End: 57-32-0935Pefumfmxq (T4) free [Mass/volume] in Serum or PlasmaT4, free Lab Routine Localized edema Expected: 12/12/2024 (Approximate), Expires: 12/12/2025 [facility] HealthcareComment on above:Expected: 12/12/2024 (Approximate), Expires: 12/12/2025Start: 12-12-2024 End: 40-31-2975Mwzlpckashiaxqju (T3) Free [Mass/volume] in Serum or PlasmaT3, free Lab Routine Localized edema Expected: 12/12/2024 (Approximate), Expires: 12/12/2025N[facility] HealthcareComment on above:Expected: 12/12/2024 (Approximate), Expires: 12/12/2025Start: 81-51-9809Fukft screening for proteinDiabetes: Urine Protein ScreeningNOSC HealthcareStart: 12-12-2024 End: 15-11-7713Wodfanb encounter lcnstytyv16/27/2025 11:30 AM EDT Office Visit [facility] [address] [address] [place] [address] Jack Vogt MD [address] [facility] [address] [place], [place] [id number] [facility] CI FMStart: 31-51-3063Kypidrkd screeningDiabetes: Retinopathy ScreeningNOSC HealthcareStart: 17-69-1402Zgjecifhcz A1c measurement Diabetes: Hemoglobin A9DGHKE HealthcareStart: 87-11-4459Sdhuwgstv vaccination Influenza Vaccine (#1)[facility] HealthcareStart: 83-79-4029QTcZ/Tdap/Td Vaccines (1 - Tdap)DTaP/Tdap/Td Vaccines (1 - Tdap)[facility] HealthcareStart: 94-53-0235Lpewjpufm for malignant neoplasm of colonNOSC HealthcareAlbumin/Globulin ratioTuscarawas HospitalAnion gap measurementTuscarawas Hospital aPTT in Platelet poor plasma by Coagulation assayTuscarawas HospitalBasophils [#/volume] in Blood by Automated [facility] CenterBasophils/100 leukocytes in Blood by Automated [facility] CenterCBC W Auto Differential panel - BloodCBC and differential Lab Routine Stage 3b chronic kidney disease (HCC) (CMS/HCC) Ordered: 12/12/2024[facility] HealthcareComment on above:Ordered: 12/12/2024BC W Auto Differential panel - BloodCBC and differential Lab Routine Chronic kidney disease, stage 4 (severe) (HCC) Ordered: 06/09/2025[facility] HealthcareComment on above:Ordered: 06/09/2025 Eosinophils/100 leukocytes in Blood by Automated [facility] CenterErythrocyte distribution width [Ratio] by Automated [facility] CenterErythrocytes [#/volume] in [facility] HospitalGlobulin [Mass/volume] in SerumTuscarawas Hospital Hematocrit [Volume Fraction] of St. [facility] HospitalHemoglobin [Mass/volume] in [facility] HospitalImmunofixation for Urine Tus[facility]as HospitalINR in Platelet poor plasma by Coagulation assayTuscarawas HospitalLeukocytes [#/volume] corrected for nucleated erythrocytes in Blood by Automated counTuscarawas HospitalLeukocytes [#/volume] in St. [facility] HospitalLymphocytes [#/volume] in Blood by Automated [facility] Lymphocytes/100 leukocytes in Blood by Automated [facility] CenterMCH [Entitic mass] by Automated [facility] MCHC [Mass/volume] by Automated [facility] CenterMCV [Entitic volume] by Automated [facility] CenterMonocytes [#/volume] in Blood by Automated [facility] Monocytes/100 leukocytes in Blood by Automated [facility] CenterNeutrophils [#/volume] in Blood by Automated countTuscarawas HospitalNeutrophils/100 leukocytes in Blood by Automated [facility] CenterNucleated erythrocytes [Presence] in Blood by Automated [facility] CenterPatient EducationHope PamphletBrecksville Va / [facility]ille [facility]tr Work Phone: Patient referralBrecksville Va / [facility]ille Hospital [facility]tr Work Phone: Platelet mean volume [Entitic volume] in Blood by Automated countTuscarawas HospitalPlatelets [#/volume] in Blood [facility] HospitalProthrombin time (PT)T[facility] HospitalRenal function 1999 panel - Serum or PlasmaTuscarawas HospitalRenal function 1999 panel - Serum or PlasmaB[facility] Immunizations Immunization DateImmunizationNotesCare FehopwxbDashpres19-99-4039vzlpkpynt virus vaccine, unspecified formulationeasy2comply (Dynasec) [facility]10-17-2022Influenza, Seasonal, Quadrivalent, AdjuvantedGeneric Provider [facility] Tyxnebsvhc18-31-7378Ikrruln Bivalent Booster VaccinationGeneric Provider [facility] Ukuimxyaab23-98-5229SSFS-YgC-5 (COVID-19) mRNAMUL.ORD!w39261Oxzfmhieasy2comply (Dynasec) [facility]10-07-2021influenza virus vaccine, unspecified formulationeasy2comply (Dynasec) [facility]10-07-2021Influenza, High-dose Seasonal, Quadrivalent, Preservative Free Generic ProviderNOMS Xuxuizyrup90-53-2712UHUI-FuF-4 (COVID-19) mRNA BNT-162b2 [employer] [facility] on above:Result Comment: 2022-09-26: [id number]-SgT-7 (COVID-19) mRNA BNT-162b2 [employer] [facility] on above:Result Comment: 2022-09-26: [id number]-SbF-7 (COVID-19) mRNA BNT-162b2 [employer] [facility] HospitalComment on above:Result Comment: 2022-09-26: [id number] virus vaccine, unspecified formulationAlfredo CARDENAS [facility]10-21-2020Influenza, Seasonal, Quadrivalent, AdjuvantedGeneric Provider [facility] HospitalAhyyyfaray78-02-8578Dbhuwbap Monkeypox, Live Attenuated, Preservative Free Generic ProviderCedar County Memorial HospitalMrqfymffxi74-91-5459xtadkquqcaje polysaccharide vaccine, 23 valentGeneric [facility] Payers DatePayer CategoryPayerPolicy [id number] 2023Medicare (Managed Care) ..[id number] [id number] [id number] 1960Private Health [id number] 2..1.072491.3.579.2.13317-12-7457Lmgscmj2626802 2..1.666212.3.579.2.20531-78-6110Tukpdzu8511014 2..1.926218.3.579.2.69184-96-8207Pvjnoob2360327 2..1.152872.3.579.2.58017-15-2714Biqehni1809496 2..1.796911.3.579.2.12564-10-7274Srsspst1458218 2.16.840.1.614884.3.579.2.80264-31-5372Hwfpviu0134249 2.16.840.1.775520.3.579.2.25738-01-3418Pnocbvu6608748 2.16.840.1.602738.3.579.2.17232-89-3378Kkxrjwz1493581 2.16.840.1.541025.3.579.2.73968-76-0489Xqqguyd2622399 2.16.840.1.035108.3.579.2.64616-55-5677Pmwxlmj43817756 2.16.840.1.679452.3.579.2.65011-68-8606Hmjsxwh45926127 2.840.1.954669.3.579.2.99022-46-4420Hrolaay96226873 2.16840.1.763701.3.579.2.25023-75-5641Qqcsegg58908762 2..840.1.840848.3.579.2.53008-54-7894Wqsvhwv07867822 2.16.840.1.520146.3.579.2.43376-05-5057Atmdiak50964276 2..840.1.002474.3.579.2.261870-68-4075Vrvovra23048878 2.16.840.1.229682.3.579.2.424959-47-3985Qnwnzll37246438 2.16.840.1.472341.3.579.2.277987-61-6088Dgdiois8098083 2.16.840.1.203910.3.579.2.518314-52-2084Pmtvzvy1549889 2.16.840.1.955010.3.57[id number] Health [id number] 0s85398l-e57p-8390-49s3-o72cukoia787Qkbqhdy82595541 2.16.840.1.815723.3.579.2.531 Social History DateTypeDetailFacilityStart: 03-25-2021 End: 86-89-5983Kibgvjt smoking status NHISEx-smoker (finding)[facility] Centertart: 03-20-2024 End: 03-46-7831Ubajest of tobacco useBrecksville Va / [facility]ille Hospital Ctr Work Phone: Start: 22-69-9291Gsi Assigned At BirthFeChildren's Hospital for Rehabilitationtart: 96-32-0248Jzbchiu smoking statusNeverExecutive Urology of [facility] BellevueStart: 89-52-6618Brxrqkw smoking status NHISNever smoked tobaccoNOMS HealthcareStart: 05-09-2023 End: 16-79-2375Epkapqh use and exposureSmokeless tobacco non-userNOMS Healthcare Start: 10-04-2023 End: 30-85-5945Sheoproej beverage intakeNot AskedNOMS HealthcareStart: 03-20-2024 End: 14-58-7229Simsivu of Social functionNOMS HealthcareStart: 17-67-6371Wlvzwfs Commentcaffeine yes type:coffeeNOMS HealthcareStart: 19-64-4097Emi assigned at birthNot on fileNOSC HealthcareStart: 92-50-1769Bqhcbia smoking status NHIS Current some day smokerMetroHealth Main Campus Medical CenterexFemale (finding) [facility] Centertart: 04-09-2025 End: 92-77-4355MZYA Follow upSDOH Follow upBrecksville Va / [facility]ille Hospital Ctr Work Phone: History of tobacco useCurrent smokerNOS[facility] History of tobacco useCigarette SmokerUTAH STATE HOSPITAL HealthcareNEGATED: Highlighted row [facility] Goals DatePatient GoalDesired Activity/StatePersonal health goal Functional Status FhnnJvsamdmynmLpsymoSlelkgei97-80-9280Nqtjffg Health Questionnaire 2 item (PHQ- 2) [Reported][facility] HospitalWktobpaepu70-99-5039KZQ-3 quick depression assessment panel [Reported.PHQ][facility] HospitalOaheveuuct71-62-9488Ffqokwq Health Questionnaire 2 item (PHQ- 2) [Reported][facility] HospitalOdnrcdmoby20-91-5153Tyfcbeidej StatusN/AExec[facility]07-02-2024Functional StatusN/AExec[facility]03-27-2024Patient Health Questionnaire 2 item (PHQ-2) [Reported][facility] HospitalInaocdevyv08-32-8085Yzlofzsvbh StatusN/AExec[facility]01-09-2023 Functional StatusN/A[facility] 57-32-8242Cpsyvrysxd StatusN/A[facility] Clinical Notes 03-04-2022 to 06-27-2025 Note Date & HtmxDmcsEqdotoot34-55-4067 History of Present illness Narrative* 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, PARK ATTENDANT - 06/27/2025 12:00 PM EDT Images from [...] being seen for a f2f for initiation ofigo DutyCalculator. Patient reports that she had not seen nephrology since prior to her 03/2025 hospitalization, but hasan appt with them on 07/15/25. She also has a cardiology visit scheduled for 07/04/25. She admits that she has not been checking her blood pressure. She does have family check in on her frequently and her jkyulceg-aj-kac is filling her pill boxes for her. [...] sister has brought her some foods from [employer] such as soup, banana bread, quiche, and fruit. Most of her in home meal prep is limited to warming meals up, ormaking simple things such as scrambled eggs, nauruan toast, etc. Pt has lost considerable weight [...] would be sent. Also discussed referral to nutrition worker. She states she will wait until after her nephrology appt. 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 Denies any recent falls. Primary activity is sitting on the couch, however, she does have a foot pedal pattern worker she says she uses once/day. She also [...] bilateral femoral stent FEMORAL ARTERY STENT Bilateral FL REMOVE TONSILS/ADENOIDS,12+ Y/O SPINE SURGERY fusion of [...] up scheduled for 07/04/25 3. 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 This is [...] confined to the home and needs intermittent group home care physical therapy occupational therapy. I have initiated the establishment of the plan of care. The patient will be followed by a physician, Dr. Vogt, who will periodically review the plan of care. The findings from this rilf-fk-hzqo encounter have been communicated with the patient's [...] or fail to improve. documented in this encounterCedar County Memorial HospitalTphqvtlxlv87-11-9561 Telephone encounter Note* Telephone Encounter - Ana [...] should be the talking to pt re: [facility] Sgmkcevpjl84-38-4937 Telephone encounter Note* Telephone Encounter - 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 NP - 06/27/2025 9:35 AM EDT VM received: Good morning. My name is Fabby Meyers, I am calling on behalf of my mother in law who I believe has an appointment scheduled today at noon, her name is Marleni Dennis and date of 1950, her phone number is [phone] last [phone] We were unaware that I believe probably [...] me. At the earliest convenience, it is [phone]. My name is Fabby, I am to her son, Tarun. I mean, you can also call Marleni to confirm this. Information, if you like. I gave the phone number for her as well, thank you. [facility] Bxlasxzbzu91-60-1613 Miscellaneous Notes* Telephone Encounter - Ana Rosa [...] date of 1950, her phone number is [phone] last [id number] We were unaware that I believe probably [...] me. At the earliest convenience, it is [phone]. My name is Fabby, I am to her son, Tarun. I mean, you can also call Marleni to confirm this. Information, if you like. I gave the phone number for her as well, thank you. documented in this encounterCedar County Memorial HospitalLyefcufjlv72-19-8640 History of Present illness Narrative* Jack Vogt [...] bilateral femoral stent FEMORAL ARTERY STENT Bilateral FL REMOVE TONSILS/ADENOIDS,12+ Y/O SPINE SURGERY fusion of [...] 0.55 - 1.02 mg/dL Final [facility] EGFR-AF [place] 06/09/2025 14 (L) >=60 mL/min/1.73m 2 Final [facility] EGFR-NON AF [place] 06/09/2025 12 (L) >=60 mL/min/1.73m 2 Final [...] Greater than 45 minutes was spent in awox-bk-zwzh consultation and coordination of care. Follow up in about 2 weeks (around 06/23/2025). documented in this encounterCedar County Memorial HospitalHfblndzxoh23-91-1232 History and physical note Author Rajiv Trejo [facility]as HospitalNote Date/TimeJuly 2024 11:50pm[place] [address] Hospitalist H&P Signed Patient: Marleni Dennis MR#: [id number] : 1950 Acct:[id number] Age/Sex: 74 / F Adm Date: 5 Loc: Room: [address] [place] [address] Type: ADM IN Attending Dr: Rajiv Trejo [...] anemia. Patient follows with her PCP in [place] and was referred to nephrology clinic for [...] negative unless noted below or in HPI [facility] Medical History Iron deficiency anemia Former [...] (From Pneumovax-23) Allergy (Verified 04/08/25 18:01) Edema Eruprvk-XAH-RjT Reductase Inhibitor (Uswevgl-Vqe-Tug Reductase Inhibitor) Allergy (Verified 04/08/25 18:01) Unknown [...] % (Auto) 23.3 % (.) 04/08/25 18:54 [place] % (Auto) 10.0 % (.) 04/08/25 18:54 Eos % (Auto) 2.6 % (.) 04/08/25 18:54 Baso % (Auto) 1.0 % (.) 04/08/25 18:54 Nucleat RBC Rel Count 0.1 /100 WBC (0-0.5) 04/08/25 18:54 Neut # (Auto) 2.8 x10E3/uL (1.8-7.7) 04/08/25 18:54 Lymph # (Auto) 1.0 x10E3/uL (1.00-4.8) 04/08/25 18:54 [place] # (Auto) 0.4 x10E3/uL (0.0-0.8) 04/08/25 18:54 [...] pH 6.5 (5.0-9.0) 04/08/25 19:50 Ur Specific [place] 1.006 (1.001-1.030) 04/08/25 19:50 Urine Protein 50 [...] <Electronically signed by Rajiv Trejo MD> 04/08/25 2592 [facility] Work Phone: 1(638) 489-994307-22-2025 History and physical [place] [id number] Hospitalist H&P Signed Patient: Marleni Dennis MR#: [id number] : 1950 Acct:[id number] Age/Sex: 74 / F Adm Date: 5 Loc: Room: [address] [place] [address] Type: ADM IN Attending Dr: Rajiv Trejo [...] anemia. Patient follows with her PCP in [place] and was referred to nephrology clinic for [...] negative unless noted below or in HPI [facility] Medical History Iron deficiency anemia Former [...] (From Pneumovax-23) Allergy (Verified 04/08/25 18:01) Edema Jhqwrcu-DSC-MhI Reductase Inhibitor (Fpzokjn-Mpg-Hxa Reductase Inhibitor) Allergy (Verified 04/08/25 18:01) Unknown [...] % (Auto) 23.3 % (.) 04/08/25 18:54 [place] % (Auto) 10.0 % (.) 04/08/25 18:54 Eos % (Auto) 2.6 % (.) 04/08/25 18:54 Baso % (Auto) 1.0 % (.) 04/08/25 18:54 Nucleat RBC Rel Count 0.1 /100 WBC (0-0.5) 04/08/25 18:54 Neut # (Auto) 2.8 x10E3/uL (1.8-7.7) 04/08/25 18:54 Lymph # (Auto) 1.0 x10E3/uL (1.00-4.8) 04/08/25 18:54 [place] # (Auto) 0.4 x10E3/uL (0.0-0.8) 04/08/25 18:54 [...] pH 6.5 (5.0-9.0) 04/08/25 19:50 Ur Specific [place] 1.006 (1.001-1.030) 04/08/25 19:50 Urine Protein 50 [...] Trejo MD 04/08/2509 11 Signed By: 04/08/25 7701 [facility]07-22-2025 Radiology Diagnostic study note [facility] [place] [address] [place] [address] CT Scan Report Signed Patient: Marleni Dennis MR#: [id number] : 1950 Acct:[id number] Age/Sex: 74 / F ADM Date: 5 Loc: ER Room: Type: [facility] ER Attending Dr: Copies to: Sohail Figueroa [...] Garnett M.D. 04/08/2025 8:27 PM Dictation Location: [place] [address] Transcribed By: [facility] 04/08/252026 Dictated By: Derek Garnett DO 04/08/252018 Signed By: 04/08/252026 [facility]07-22-2025 Evaluation note* Diagnosis Onset Date Resolution Status Admit Date TOMASA (acute kidney injury) acuteJuly 2024 3:58pmAnemiaacuteJuly 2024 3:58pmChronic kidney disease, stage IV (severe)acuteJuly 2024 3:58pmHypertensive nephropathy acuteJuly 2024 3:58pmProteinuriaacuteJuly 2024 3:58pmAcute kidney injury superimposed on CKDacuteJuly 2024 9:16pmAnemiaacuteJuly 2024 9:16pmFluid overloadacuteJuly 2024 9:16pmHypertensive emergencyacuteJuly 2024 9:16pmHypertensive nephropathyacuteJuly 2024 9:16pmLower GI bleedacuteJuly 2024 9:16pmMelenaacuteJuly 2024 9:16pm [facility] Work Phone: 1(691) 526-295207-22-2025 Evaluation note* Diagnosis Onset Date Resolution Status [...] 2024 9:16pmProteinuriaacuteJuly 2024 9:16pmWeakness generalizedacuteJuly 2024 9:16pm [facility] Work Phone: 1(720) 383-109107-18-2025 NoteSUBJECTIVE Reason for Visit: Marleni Dennis is [...] and hx of DVT/PE. 03/12/2025 admitted to [facility] (initially presented to [facility]) for hypertension emergency. Systolics were as high as 250, lab work revealed elevated troponin without immediate concern for extreme changes on EKG. CT head was negative for acute process. Placed on Cardene drip initially. Nephrology was also consulted due to the patient's worsening TOMASA. 04/04/2025 office visit: Patient seen evaluated in the office today, accompanied by her qskmnqop-ve-plq. She denies chest pain, shortness of breath, palpitations. She endorses worsening lower extremity edema. On exam she has +3 LE edema. States she has an appointment on Monday with her order takers supervisor to decide on dialysis. 04/24/2024 office visit [...] elevated resistive index withi (more content not included)...[facility] 04-02-2025 History of Present illness Narrative* 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 NP - 04/02/2025 2:00 PM EDT Images from the original note were not included. Patient Demographics: Marleni Dennis Date of : 1950 Chief Complaint Patient presents with Hypertension swelling of lower extremities right flank pain HPI Pt is being seen today in her home due to difficulty in getting into the office. [facility] called into the office on 03/31/25 [...] for pain. Pt was recently hospitalized at [facility] for hypertensive crisis. Pt also had an acute kidney injury superimposed on her CKD, stage IV. On discharge from the hospital, Cr was 3.69 and GFR 12.3. A referral to nephrology was sent to Dr. Espinosa in [place] during her hospital follow up visit on [...] up scheduled with Dr Espinosa 04/08 in [place] [address]. She is working on obtaining transportation with [...] bilateral femoral stent FEMORAL ARTERY STENT Bilateral FL REMOVE TONSILS/ADENOIDS,12+ Y/O SPINE SURGERY fusion of [...] 2. Chronic kidney disease, stage 4 (severe) ([facility]) Follow up with nephrology 04/08 [...] for Next scheduled follow-up. documented in this encounterCedar County Memorial HospitalKlruiennes42-68-8891 Telephone encounter Note* Telephone Encounter - GISSELLE Sigala - 03/25/2025 2:15 PM EDT Rx for ambien was sent yesterday. [facility] Bpgsedcrks39-84-7443 Miscellaneous Notes* Telephone Encounter - GISSELLE Sigala - 03/25/2025 2:15 PM EDT Rx for ambien was sent yesterday. documented in this encounterCedar County Memorial HospitalGnrosmzrxj22-41-3562 History of Present illness Narrative* Jack Vogt MD - 03/24/2025 4:30 PM EDT Images from the original note were not included. HPI Follow-up Additional comments: Transferred to [facility] from [facility] 03/13/25 dx: HTN urgency,NSTEMI discharged home03/20/25 med changes made follow up with cardiology 04/02/25 and nephrology 05/06/25 discuss referral Additional comments: Pt would like a referral sent to nephrology in [place] she does not want to go to [place] Last edited by Summer Feliciano LPN on 03/24/2025 4:51 PM. Subjective Patient ID: Marleni Dennis is a 74 y.o. female who presents for Follow-up ([facility]25 dx: HTN urgency,NSTEMI discharged home03/20/25 med changes made follow up with cardiology04/02/25 and nephrology 05/06/25) and discuss referral (Pt would like a referral sent to nephrology in [place] she does not want to go to [place]). Flowsheet Row Documentation from 03/24/2025 in [facility] with Aimee Go MA Hospital Information ED, Hospital or [facility] Facility Discharge? Hospital Patient has been contacted within two business days of discharge Yes Diagnosis Hypertension Discharge Date 03/20/25 Discharged To: Home Setting Discharge Hospital [facility] Engagement Call Start Time 1055 Admission [...] bilateral femoral stent FEMORAL ARTERY STENT Bilateral FL REMOVE TONSILS/ADENOIDS,12+ Y/O SPINE SURGERY fusion of [...] all orders for this visit: 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 - The patient was seen today in follow up of recent hospital stay. All available hospital records were reviewed and discussed with the patient. Hospital discharge meds were reviewed. Any changes are as noted. Type 2 diabetes mellitus with stage 4 chronic kidney disease, without long-term current use of insulin ([facility]) - Ambulatory referral to Nephrology; Future Insomnia due to medical condition - zolpidem (Ambien) 5 MG tablet; Take 1 tablet (5 mg) by mouth as needed at bedtime for sleep Chronic kidney disease, stage 4 (severe) ([facility]) Primary osteoarthritis of both knees - traMADol (Ultram) 50 MG tablet; Take 1 tablet (50 mg) by mouth every 8 (eight) hours if needed for severe pain - PT home eval; Future Follow up in about 2 months (around 05/25/2025) for Routine F/U. documented in this encounterCedar County Memorial HospitalFfbgbndzxi98-86-0408 NotePhysical Therapy Name: Marleni Dennis Date of : 1950 Today's Date: 03/20/25 Pt is unable to be seen for therapy at this time secondary to pt to discharge to home soon. Will check back and complete therapy session as appropriate if discharge does not occur.. Check No Charge Time attempted: [facility]07-03-2025 NoteNephrology Progress Note Patient : Marleni Dennis; 74 y.o. Location: [facility]8-01 Attending: Erickson Cabrera MD Admit Date: 03/13/2025 Hospital Day: 7 Reason for Consult: CKD IV with uncontrolled hypertension. Subjective: History of present illness: Marleni Dennis is a 74 y.o. female who was transferred from [facility] after presenting with weakness after a fall as well as uncontrolled hypertension. She has pertinent past medical history of hypertension secondary to renal artery stenosis, CKD IV, CAD s/p CABG and PCI with stent placement, obstructive sleep apnea. 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 She says she has a water pill [...] Dose Status apixaban (Eliquis) 2.5 mg tablet [id number] TAKE 1 TABLET BY MOUTH TWICE A DAY FOR 90 DAYS Historical ProviderMD Active aspirin 81 mg EC tablet [id number] Take 1 tablet every day by oral route. Historical ProviderMD Flag for Review buPROPion (Wellbutrin) 75 mg tablet [id number] Yes Take 75 mg by mouth twice a day. Historical ProviderMD Active carvedilol (Coreg) 12.5 mg tablet [id number] No Take 25 mg by mouth with breakfast and with evening meal. Patient not taking: Reported on 03/13/2025 Historical ProviderMD Not Taking Active DULoxetine (Cymbalta) [address] capsule [id number] Take 30 mg by mouth every other day. Weaning off of duloxetine (takes 60 mg daily AND 30 mg every other day_) Historical ProviderMD Active DULoxetine (Cymbalta) [address] capsule [id number] Take 1 tablet by mouth in the morning. Weaning off of duloxetine (takes 60 mg daily AND 30 mg every other day_) Historical ProviderMD Active ezetimibe (Zetia) 10 mg tablet [id number] Take 1 tablet by mouth in the morning. Historical ProviderMD Active fenofibrate (Tricor) 145 mg tablet 1703 (more content not included)...[facility]07-03-2025 NotePt has DC orders. Sent updates to [facility]. Will send AVS when available. Updated MD and pt's [place]. Sent AVS/DC orders to [facility]. They will be able to arrange start of care on Saturday 03/24. Updated pt.[facility]07-03-2025 Note Hospital Medicine Discharge Summary Final Discharge Diagnosis: Principal Problem: Hypertensive emergency Active Problems: Coronary artery disease without angina pectoris Uncontrolled hypertension Occlusion of carotid artery Depression Type 2 diabetes mellitus with other diabetic kidney complication ([facility]) Tobacco dependence Stage 4 chronic kidney disease ([facility]) Acute kidney injury superimposed on chronic kidney disease NSTEMI (non-ST elevated myocardial infarction) ([facility]) Abdominal bruit Other abnormalities of gait and mobility Severe protein-calorie malnutrition ([facility]) History of DVT (deep vein thrombosis) CAD s/p CABG Admission Diagnosis: HTN (hypertension) with goal to be determined [I10] Hospital course: 74-year-old female with the above history was admitted to [facility] on 03/13 due to hypertensive emergency. patient initially presented to [facility] after a fall and was found to have systolic blood pressure up to 250 and lab work revealed elevated troponin without immediate concerning ischemic changes on EKG. CT head was negative for acute process. She was transferred to [facility] for NSTEMI. Upon presentation cardiology was [...] Center 04/02/2025 3:00 PM John Luther CNP [facility]ARD [place] [facility] 05/06/2025 8:30 AM Aydee Chao MD [facility] NEPHRO Comprehensiv 05/06/2025 8:45 AM Aydee Chao MD [facility] NEPHRO Comprehensiv Your medication list ASK your [...] pneumovax-23 [pneumococcal 23-cruz ps vaccine], red dye, tlicfur-zrz-xop reductase inhibitors, and varenicline. [place] [facility] [place]charge Condition: Stable Code Status: Full [...] fat with locations identified (more content not included)...[facility]07-03-2025 NoteThis report has been cancelled.[facility]07-02-2025 Note-TOMASA on CKD during admission, likely ATN -Cr upward trend, if improved tomorrow then discharge -Daily BMP -Defer fluids to Nephrology - Spoke with nephrology today and agree with doing urinalysis to consider alternative etiologies for the patient's renal dysfunctionUnWilson Memorial Hospital07-02-2025 NotePhysical Therapy Physical Therapy Treatment [...] II Activity Tolerance Comments Pt reports dizziness correction through ambulation limiting distances and activity tolerance. [...] at end of session. PT Assessment PT Assessment/BLOOD BANK SPECIALIST Summary Pt continues to improve, however, limited by dizziness correction throughout ambulation distance this date. Pt also [...] will perform sit to (more content not included)...[facility]07-02-2025 NoteNephrology Progress Note Patient : Marleni Dennis; 74 y.o. Location: [facility]8/4108-01 Attending: Erickson Cabrera MD Admit Date: 03/13/2025 Hospital Day: 6 Reason for Consult: CKD IV with uncontrolled hypertension. Subjective: History of present illness: Marleni Dennis is a 74 y.o. female who was transferred from [facility] after presenting with weakness after a fall as well as uncontrolled hypertension. She has pertinent past medical history of hypertension secondary to renal artery stenosis, CKD IV, CAD s/p CABG and PCI with stent placement, obstructive sleep apnea. 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 She says she has a water pill [...] Dose Status apixaban (Eliquis) 2.5 mg tablet [id number] TAKE 1 TABLET BY MOUTH TWICE A DAY FOR 90 DAYS Historical Provider, Active aspirin 81 mg EC tablet [id number] Take 1 tablet every day by oral route. Historical ProviderMD Flag for Review buPROPion (Wellbutrin) 75 mg tablet [id number] Yes Take 75 mg by mouth twice a day. Historical ProviderMD Active carvedilol (Coreg) 12.5 mg tablet [id number] No Take 25 mg by mouth with breakfast and with evening meal. Patient not taking: Reported on 03/13/2025 Historical ProviderMD Not Taking Active DULoxetine (Cymbalta) [address] capsule [id number] Take 30 mg by mouth every other day. Weaning off of duloxetine (takes 60 mg daily AND 30 mg every other day_) Historical ProviderMD Active DULoxetine (Cymbalta) [address] capsule [id number] Take 1 tablet by mouth in the morning. Weaning off of duloxetine (takes 60 mg daily AND 30 mg every other day_) Historical ProviderMD Active ezetimibe (Zetia) 10 mg tablet [id number] Take 1 tablet by mouth in the morning. Historical ProviderMD Active fenofibrate (Tricor) 145 mg tablet [id number] Take 1 tablet by mouth in the morning. Historical ProviderMD Active furosemide (Lasix) 40 mg tablet [id number] No if needed. (more content not included)...[facility]07-02-2025 Note-RD following, see belowUnWilson Memorial Hospital07-02-2025 Note-MCS SSIUnWilson Memorial Hospital07-02-2025 Note-PT/OT following -Plan for HHC dispoUnWilson Memorial Hospital07-02-2025 Note-NRT -Advised on cessationUnWilson [facility] Hospital07-02-2025 Note-Continue LexaproUnWilson Memorial Hospital07-02-2025 Note-Continue Zetia, fenofibrate, aspirinUnWilson Memorial Hospital07-02-2025 Note-likely 2/2 medication non-adherence -US renal negative for stenosis -aldosterone, renin wnl -Required intermittent cardene -BP management per Nephrology, appreciate recsUniversity of Houston Methodist [facility]07-02-2025 Note-would benefit repeating duplex scan of the abdomen as an outpatientUnWilson Memorial Hospital07-02-2025 Note-Prior episodes of DVT, on Eliquis. Physical exam showed evidence of LLE swelling. -b/l LE doppler negative for DVTUnWilson Memorial Hospital07-02-2025 Note-Continue Zetia, aspirin -ultrasound showing <50% stenosis R ICA, 50-69% stenosis L ICA -Will need outpatient surveillanceUnWilson Memorial Hospital07-02-2025 NoteHospital Medicine Daily Progress Note - 03/19/2025 8:02 AM; Room: [address] [place] [address] Admission: 03/13/2025 1:02 AM; Length of stay: 6 days THE HOSPITALIST TEAM PREFERS TO USE Co[employer] CHAT FOR NON-URGENT COMMUNICATION 7AM-7PM. IF I DO NOT RESPOND WITHIN 20 MINUTES OR URGENT MATTERS, PLEASE CALL THROUGH THE HEAD SULFIDE OPERATOR. FROM 7PM-7AM, PLEASE PAGE [phone](COVR). Code Status: Full Code Barriers to Discharge: [...] Hypertensive emergency NSTEMI (non-ST elevated myocardial infarction) ([facility]) Acute kidney injury superimposed on chronic kidney disease -likely 2/2 medication non-adherence -US renal negative for stenosis -aldosterone, renin wnl -Required intermittent cardene -BP management per Nephrology, appreciate recs Stage 4 chronic kidney disease ([facility]) -TOMASA on CKD during admission, [...] diabetes mellitus with other diabetic kidney complication ([facility]) -[facility] Tobacco dependence -NRT -Advised on cessation Other abnormalities of gait and mobility -PT/OT following -Plan for [facility] dispo Severe protein-calorie malnutrition (CMS/HCC) -RD [...] Academy of Nutrition and Dietetics and the [place] Society of Enteral and Parenteral Nutrition, meets [...] Results from last 7 (more content not included)...[facility]07-01-2025 NotePhysical Therapy Physical Therapy Treatment Patient [...] Clicks T-Score: 20 Assessment/Plan PT Assessment PT Assessment/BLOOD BANK SPECIALIST Summary: pt amb 115ft RW with SBAof [...] (from Physical Therapy) Active Problems Problem[facility] Start Date: 03/13/25 Goal Start Date Expected End Date End Date Patient will perform bed mobility from flat bed independently without use of bed rails. 03/13/25 04/12/25 -- Goal Star (more content not included)...[facility] 03-18-2025 NoteReceived update from [facility]/[place] office, they will accept. Updated pt. Anticipate Dc tomorrow per hospitalist note.[facility] 03-18-2025 NoteNephrology Progress Note Patient : Marleni Dennis; 74 y.o. Location: [id number]- Attending: Erickson Cabrera MD Admit Date: 03/13/2025 Hospital Day: 5 Reason for Consult: CKD IV with uncontrolled hypertension. Subjective: History of present illness: Marleni Dennis is a 74 y.o. female who was transferred from [facility] after presenting with weakness after a fall as well as uncontrolled hypertension. She has pertinent past medical history of hypertension secondary to renal artery stenosis, CKD IV, CAD s/p CABG and PCI with stent placement, obstructive sleep apnea. 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 She says she has a water pill [...] Dose Status apixaban (Eliquis) 2.5 mg tablet [id number] TAKE 1 TABLET BY MOUTH TWICE A DAY FOR 90 DAYS Historical ProviderMD Active aspirin 81 mg EC tablet [id number] Take 1 tablet every day by oral route. Historical ProviderMD Flag for Review buPROPion (Wellbutrin) 75 mg tablet [id number] Yes Take 75 mg by mouth twice a day. Historical ProviderMD Active carvedilol (Coreg) 12.5 mg tablet [id number] No Take 25 mg by mouth with breakfast and with evening meal. Patient not taking: Reported on 03/13/2025 Historical ProviderMD Not Taking Active DULoxetine (Cymbalta) [address] capsule [id number] Take 30 mg by mouth every other day. Weaning off of duloxetine (takes 60 mg daily AND 30 mg every other day_) Historical Provider, Active DULoxetine (Cymbalta) [address] capsule [id number] Take 1 tablet by mouth in the morning. Weaning off of duloxetine (takes 60 mg daily AND 30 mg every other day_) Historical Provider, Active ezetimibe (Zetia) 10 mg tablet [id number] Take 1 tablet by mouth in the morning. Historical Provider, Active fenofibrate (Tricor) 145 mg tablet 83468 (more content not included)... [facility]07-01-2025 NotePhysician Clarification Please review the following and provide your response below. Please specify the type of NSTEMI: --NSTEMI --OK Type 2, please document underlying cause --NSTEMI Ruled out --Demand ischemia (no NSTEMI) --Elevated troponins without NSTEMI --Other specified --Clinically unable to determine Additional Notes: Demand ischemia (no NSTEMI) This documentation will become part of the patient's medical record.[facility]07-01-2025 Note-TOMASA on CKD during admission, likely ATN -Cr upward trend, if improved tomorrow then discharge -Daily BMP -Defer fluids to NephrologyUnWilson Memorial Hospital07-01-2025 Note- Continue LexaproUnWilson Memorial Hospital07-01-2025 Note-PT/OT following -Plan for [facility] dispoUnWilson [facility] Hospital07-01-2025 Note-would benefit repeating duplex scan of the abdomen as an outpatientUnWilson Memorial Hospital07-01-2025 Note-NRT -Advised on cessationUnWilson Memorial Hospital07-01-2025 Note-RD following, see belowUnWilson Memorial Hospital07-01-2025 Note-MCS SSI [facility]07-01-2025 Note-likely 2/2 medication non-adherence -US renal negative for stenosis -aldosterone, renin wnl -Required intermittent cardene -BP management per Nephrology, appreciate recsUniversity of Houston Methodist Hospital07-01-2025 Note-Prior episodes of DVT, on Eliquis. Physical exam showed evidence of LLE swelling. -b/l LE doppler negative for DVTUnWilson Memorial Hospital07-01-2025 Note-Continue Zetia, aspirin -ultrasound showing <50% stenosis R ICA, 50-69% stenosis L ICA -Will need outpatient surveillanceUnWilson Memorial Hospital07-01-2025 Note-Continue Zetia, fenofibrate, aspirinUnWilson Memorial Hospital 03-18-2025 NoteHospital Medicine Daily Progress Note - 03/18/2025 7:20 AM; Room: [address] [place] [address] Admission: 03/13/2025 1:02 AM; Length of stay: 5 days THE HOSPITALIST TEAM PREFERS TO USE Co[employer] CHAT FOR NON-URGENT COMMUNICATION 7AM-7PM. IF I DO NOT RESPOND WITHIN 20 MINUTES OR URGENT MATTERS, PLEASE CALL THROUGH THE HEAD SULFIDE OPERATOR. FROM 7PM-7AM, PLEASE PAGE [phone](COVR). Code Status: Full Code Barriers to Discharge: [...] appreciate recs Stage 4 chronic kidney disease ([facility]) -TOMASA on CKD during admission, likely ATN [...] diabetes mellitus with other diabetic kidney complication ([facility]) -[facility] Tobacco dependence -NRT -Advised on cessation Other abnormalities of gait and mobility -PT/OT following -Plan for [facility] dispo Severe protein-calorie malnutrition ([facility]) -RD following, see below Nutrition Screen: Clinical [...] Academy of Nutrition and Dietetics and the [place] Society of Enteral and Parenteral Nutrition, meets [...] 03/13/25 1748 03/13/25 073 (more content not included)...[facility]07-01-2025 NoteProblem: Safety - Adult Goal: Free from fall injury Outcome: Progressing The patient is Moderately Stable - Low risk of patient condition declining or worsening The patient's goals for the shift include comfort The clinical goals for the shift include VSS, safetyUnWilson Memorial Hospital06-30-2025 NotePhysical Therapy Name: Marleni Dnenis Date of : 1950 Today's Date: 03/17/25 Oh no you can't work with me today. Session okay per RN, requests pt's BP be recorded prior to mobility. Pt supine in bed upon arrival, refuses PT this afternoon d/t being too tired. Is, however, agreeable to this automobile and property underwriter obtaining BP: 139/50 mmHg. RN aware. Check No Charge Time attempted: 1425 Giancarlo Calderón, PT, DPTUnWilson Memorial Hospital06-30-2025 Note-TOMASA on CKD during admission, likely ATN -Cr upward trend -Daily BMP -Defer fluids to [facility]phrologyOhio [facility]06-30-2025 Note- likely 2/2 medication non-adherence -US renal negative for stenosis -aldosterone, renin wnl -Required intermittent cardene -BP management per Nephrology, appreciate recsUniversAdena [facility]ayette [facility]06-30-2025 Note-likely 2/2 medication non-adherence -US renal negative for stenosis -aldosterone, renin wnl -Required intermittent cardene -BP management per Nephrology, appreciate recsUniversAdena Fayette [facility] Center06-30-2025 NoteOccupational Therapy Occupational Therapy Treatment [...] IADLs;Decreased trunk control for functional activities OT Assessment/PEOPLESOFT FINANCIAL DEVELOPER Summary Pt would benefit from continued skilled [...] 4 Eating meals? 4 Total Score OT [facility] 21 OT Goals: Multi-Disciplinary Problems (from Occupational Therapy) Active Problems Problem: Balance Start Date: 03/14/25 Goal Start Date Expected End Date End Date LTG - Patient will maintain stand balance to (more content not included)... [facility]06-30-[facility] Note-Continue LexaproUnWilson Memorial Hospital06-30-2025 Note-Continue Zetia, aspirin -ultrasound showing <50% stenosis R ICA, 50-69% stenosis L ICA -Will need outpatient surveillanceUnWilson Memorial Hospital06-30-2025 Note-NRT -Advised on cessationUnWilson Memorial Hospital06-30-2025 Note-MCS SSI [facility]06-30-2025 Note-RD following, see below [facility]06-30-2025 Note-PT/OT following -[facility] for [facility] dispoUnWilson [facility] Hospital06-30-2025 Note-would benefit repeating duplex scan of the abdomen as an outpatientUnWilson Memorial Hospital06-30-2025 Note-Prior episodes of DVT, on Eliquis. Physical exam showed evidence of LLE swelling. -b/l LE doppler negative for DVTUnWilson Memorial Hospital06-30-2025 Note-Continue Zetia, fenofibrate, aspirinUnWilson Memorial Hospital 03-17-2025 NoteHospital Medicine Daily Progress Note - 03/17/2025 8:33 AM; Room: [address] [place] [address] Admission: 03/13/2025 1:02 AM; Length of stay: 4 days THE HOSPITALIST TEAM PREFERS TO USE TimePoints FOR NON-URGENT COMMUNICATION 7AM-7PM. IF I DO NOT RESPOND WITHIN 20 MINUTES OR URGENT MATTERS, PLEASE CALL THROUGH THE HEAD SULFIDE OPERATOR. FROM 7PM-7AM, PLEASE PAGE [phone](COVR). Code Status: Full Code Barriers to Discharge: [...] Hypertensive emergency NSTEMI (non-ST elevated myocardial infarction) ([facility]) Acute kidney injury superimposed on chronic kidney disease -likely 2/2 medication non-adherence - renal negative for stenosis -aldosterone, renin wnl -Required intermittent cardene -BP management per Nephrology, appreciate recs Stage 4 chronic kidney disease ([facility]) -TOMASA on CKD during admission, [...] diabetes mellitus with other diabetic kidney complication ([facility]) -[facility] Tobacco dependence -NRT -Advised on cessation Other abnormalities of gait and mobility -PT/OT following -Plan for [facility] dispo Severe protein-calorie malnutrition ([facility]) -RD following, see below Nutrition Screen: Clinical [...] Academy of Nutrition and Dietetics and the [place] Society of Enteral and Parenteral Nutrition, meets [...] 03/13/25 0738 SODIUM mmol (more content not included)...[facility] 03-17-2025 NoteNephrology Progress Note Patient : Marleni Dennis; 74 y.o. Location: 4108/4108-01 Attending: Erickson Cabrera MD Admit Date: 03/13/2025 Hospital Day: 4 Reason for Consult: CKD IV with uncontrolled hypertension. Subjective: History of present illness: Marleni Dennis is a 74 y.o. female who was transferred from [facility] after presenting with weakness after a fall as well as uncontrolled hypertension. She has pertinent past medical history of hypertension secondary to renal artery stenosis, CKD IV, CAD s/p CABG and PCI with stent placement, obstructive sleep apnea. 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 She says she has a water pill [...] Dose Status apixaban (Eliquis) 2.5 mg tablet [id number] TAKE 1 TABLET BY MOUTH TWICE A DAY FOR 90 DAYS Historical ProviderMD Active aspirin 81 mg EC tablet [id number] Take 1 tablet every day by oral route. Historical ProviderMD Flag for Review buPROPion (Wellbutrin) 75 mg tablet [id number] Yes Take 75 mg by mouth twice a day. Historical ProviderMD Active carvedilol (Coreg) 12.5 mg tablet [id number] No Take 25 mg by mouth with breakfast and with evening meal. Patient not taking: Reported on 03/13/2025 Kimberly Rousseau MD Not Taking Active DULoxetine (Cymbalta) [address] capsule [id number] Take 30 mg by mouth every other day. Weaning off of duloxetine (takes 60 mg daily AND 30 mg every other day_) Historical ProviderMD Active DULoxetine (Cymbalta) [address] capsule [id number] Take 1 tablet by mouth in the morning. Weaning off of duloxetine (takes 60 mg daily AND 30 mg every other day_) Historical ProviderMD Active ezetimibe (Zetia) 10 mg tablet [id number] Take (more content not included)... [facility]06-29-2025 Note Attestation signed by Sharee Mckeon [...] Faculty, Division of Nephrology, Department of Medicine, [facility]. Nephrology Progress Note Patient : Marleni Dennis; 74 y.o. Location: [facility]8/4108-01 Attending: Erickson Cabrera MD Admit Date: 03/13/2025 Hospital Day: 3 Reason for Consult: CKD IV with uncontrolled hypertension. Subjective: History of present illness: Marleni Dennis is a 74 y.o. female who was transferred from [facility] after presenting with weakness after a fall as well as uncontrolled hypertension. She has pertinent past medical history of hypertension secondary to renal artery stenosis, CKD IV, CAD s/p CABG and PCI with stent placement, obstructive sleep apnea. 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 She says she has a water pill [...] Dose Status apixaban (Eliquis) 2.5 mg tablet [id number] TAKE 1 TABLET BY MOUTH TWICE A DAY FOR 90 DAYS Historical Provider, Active aspirin 81 mg EC tablet [id number] Take 1 tablet (more content not included)... [facility]06-29-2025 Note-likely 2/2 medication non-adherence -US renal negative for stenosis -pending aldosterone, renin -Required intermittent cardene -Continue Coreg 25, hydralazine 100 TID, nifedipine 60 BID -Due to consulting services changes orders without communication to primary, will defer all BP management to Nephrology to avoid inevitable complications from multiple prescribers.[facility]06-29-2025 Note-TOMASA on CKD during admission, likely ATN -Cr mild increased today -Daily BMP -Defer fluids to NephrologyUnWilson Memorial Hospital06-29-2025 Note- MCS SSIUnWilson Memorial Hospital06-29-2025 Note-Continue Zetia, aspirin -ultrasound showing <50% stenosis R ICA, 50-69% stenosis L ICA -Will need outpatient surveillanceUnWilson Memorial Hospital06-29-2025 Note-RD following, see belowUnWilson Memorial Hospital06-29-2025 Note- PT/OT following -Plan for [facility] dispoUn[facility] Hospital06-29-2025 Note-NRT -Advised on cessationUnWilson Memorial Hospital06-29-2025 Note-would benefit repeating duplex scan of the abdomen as an outpatientUnWilson Memorial Hospital06-29-2025 Note-Prior episodes of DVT, on Eliquis. Physical exam showed evidence of LLE swelling. -b/l LE doppler negative for DVTUnWilson Memorial Hospital06-29-2025 Note-Continue LexaproUnWilson Memorial Hospital06-29-2025 Note-Continue Zetia, fenofibrate, aspirinOhio State East Hospital06-29-2025 Note Hospital Medicine Daily Progress Note - 03/16/2025 7:20 AM; Room: [facility]4108-01 Admission: 03/13/2025 1:02 AM; Length of stay: 3 days THE HOSPITALIST TEAM PREFERS TO USE CoPatient CHAT FOR NON-URGENT COMMUNICATION 7AM-7PM. IF I DO NOT RESPOND WITHIN 20 MINUTES OR URGENT MATTERS, PLEASE CALL THROUGH THE HEAD SULFIDE OPERATOR. FROM 7PM-7AM, PLEASE PAGE [phone](COVR). Code Status: Full Code Barriers to Discharge: [...] multiple prescribers. Stage 4 chronic kidney disease (CMS/HCC) -TOMASA [...] mellitus with other diabetic kidney complication (CMS/HCC) -MCS SSI Tobacco dependence -NRT -Advised on cessation Other abnormalities of gait and mobility -PT/OT following -Plan for [facility] dispo Severe protein-calorie malnutrition (CMS/HCC) -RD [...] Academy of Nutrition and Dietetics and the [place] Society of Enteral and Parenteral Nutrition, meets [...] Units 03/16/25 0500 03/15/25 (more content not included)...[facility]06-28-2025 Note -likely 2/2 medication non-adherence -US renal negative for stenosis -pending aldosterone, renin -Required intermittent cardene -Continue Coreg 25, hydralazine 100 TID, nifedipine 30 BID -Avoid relative hypotension and rapid changes to medications prior to steady state in order to avoid such labile BPUnWilson Memorial Hospital 03-15-2025 Note-would benefit repeating duplex scan of the abdomen as an outpatientUnWilson Memorial Hospital06-28-2025 Note-PT/OT following -[facility] dispoUnWilson [facility] Hospital06-28-2025 Note-Prior episodes of DVT, on Eliquis. Physical exam showed evidence of LLE swelling. -b/l LE doppler negative for DVTUnWilson Memorial Hospital06-28-2025 Note-TOMASA on CKD during admission, likely ATN -Cr plateau today, hold fluids and monitor daily BMP -If improved tomorrow and BP stable then dischargeUnWilson Memorial Hospital06-28-2025 Note-Continue Zetia, fenofibrate, aspirinUnWilson Memorial Hospital06-28-2025 Note-Continue Zetia, aspirin -ultrasound showing <50% stenosis R ICA, 50-69% stenosis L ICA -Will need outpatient surveillanceUnWilson Memorial Hospital06-28-2025 Note-NRT -Advised on cessationUnWilson Memorial Hospital06-28-2025 Note-Continue LexaproUnWilson Memorial Hospital06-28-2025 Note-MCS SSIUnWilson Memorial Hospital06-28-2025 Note-RD following, see belowOhio [facility]06-28-2025 Note Attestation signed by Sharee Mckeon [...] Faculty, Division of Nephrology, Department of Medicine, [facility]. Nephrology Progress Note Patient : Marleni Dennis; 74 y.o. Location: 4108/4108-01 Attending: Erickson Cabrera MD Admit Date: 03/13/2025 Hospital Day: 2 Reason for Consult: CKD IV with uncontrolled hypertension. Subjective: History of present illness: Marleni Dennis is a 74 y.o. female who was transferred from [facility] after presenting with weakness after a fall as well as uncontrolled hypertension. She has pertinent past medical history of hypertension secondary to renal artery stenosis, CKD IV, CAD s/p CABG and PCI with stent placement, obstructive sleep apnea. 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 She says she has a water pill [...] RN (Registered Nurse) (more content not included)... [facility]06-28-2025 NoteHospital Medicine Daily Progress Note - 03/15/2025 7:32 AM; Room: [address] [place] [address] Admission: 03/13/2025 1:02 AM; Length of stay: 2 days THE HOSPITALIST TEAM PREFERS TO USE TimePoints FOR NON-URGENT COMMUNICATION 7AM-7PM. IF I DO NOT RESPOND WITHIN 20 MINUTES OR URGENT MATTERS, PLEASE CALL THROUGH THE HEAD SULFIDE OPERATOR. FROM 7PM-7AM, PLEASE PAGE [phone](COVR). Code Status: Full Code Barriers to Discharge: [...] Hypertensive emergency NSTEMI (non-ST elevated myocardial infarction) ([facility]) Acute kidney injury superimposed on [...] mellitus with other diabetic kidney complication (CMS/HCC) -MCS SSI Tobacco dependence -NRT -Advised on cessation Other abnormalities of gait and mobility -PT/OT following -Plan for [facility] dispo Severe protein-calorie malnutrition (CMS/HCC) -RD [...] Academy of Nutrition and Dietetics and the [place] Society of Enteral and Parenteral Nutrition, meets [...] NIFEdipine XL, 30 mg (more content not included)...[facility]06-27-2025 NoteNephrology Progress Note Patient : Marleni Dennis; 74 y.o. Location: [facility]8/4108-01 Attending: Erickson Cabrera MD Admit Date: 03/13/2025 Hospital Day: 1 Reason for Consult: CKD IV with uncontrolled hypertension. Subjective: History of present illness: Marleni Dennis is a 74 y.o. female who was transferred from [facility] after presenting with weakness after a fall as well as uncontrolled hypertension. She has pertinent past medical history of hypertension secondary to renal artery stenosis, CKD IV, CAD s/p CABG and PCI with stent placement, obstructive sleep apnea. 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 She says she has a water pill [...] Dose Status apixaban (Eliquis) 2.5 mg tablet [id number] TAKE 1 TABLET BY MOUTH TWICE A DAY FOR 90 DAYS Historical Provider, Active aspirin 81 mg EC tablet [id number] Take 1 tablet every day by oral route. Historical ProviderMD Flag for Review buPROPion (Wellbutrin) 75 mg tablet [id number] Yes Take 75 mg by mouth twice a day. Historical Provider, Active carvedilol (Coreg) 12.5 mg tablet [id number] No Take 25 mg by mouth with breakfast and with evening meal. Patient not taking: Reported on 03/13/2025 Historical ProviderMD Not Taking Active DULoxetine (Cymbalta) [address] capsule [id number] Take 30 mg by mouth every other day. Weaning off of duloxetine (takes 60 mg daily AND 30 mg every other day_) Historical ProviderMD Active DULoxetine (Cymbalta) [address] capsule [id number] Take 1 tablet by mouth in the morning. Weaning off of duloxetine (takes 60 mg daily AND 30 m (more content not included)...[facility]06-27-2025 Note- Prior episodes of DVT, on Eliquis. Physical exam showed evidence of LLE swelling. - Will order LLE doppler for further evaluation.[facility]06-27-2025 NoteMay benefit repeating duplex scan of the abdomen as an outpatientUnWilson Memorial Hospital06-27-2025 NoteAs aboveUnWilson Memorial Hospital06-27-2025 Note- Nephrology consult blood pressure controlled aim for good glycemic control avoid nephrotoxic meds will discontinue NSAIDs which she is taking as well as ARB - Kidney function declining, likely secondary to hypertensive emergency on admission. Cr = 3.12, BUN 46, GFR 15. Continue monitoring levels and volume status. Continued LR infusion.[facility]06-27-2025 Note - history of severe unintentional weight loss due to decreased PO intake. - Today, patient found to have improved PO intake. Continue monitoringUnWilson Memorial Hospital06-27-2025 Note- Nicotine replacement counseling, discussed with patient about having coronary disease peripheral arterial disease which can worsen with tobacco useUnWilson Memorial Hospital06-27-2025 Note- Blood sugar check dietUnWilson Memorial Hospital06-27-2025 Note- With issues with hypertension discontinue Wellbutrin she scored 4 on depression scale we will add LexaproUnWilson Memorial Hospital 03-14-2025 Note- Continue Zetia, aspirin - Ultrasound Carotid artery showed bilateral stenosis >50%[facility]- Cardiology recommend Zetia and fibrate on aspirin [facility]06-27-2025 Note- Suspect secondary hypertension most likely due to renal artery stenosis. Continues to be hypertensive today however, she is asymptomatic. - Renal ultrasound done showed left side stenosis with a diameter of < 9 cm. Right side unremarkable. - Pending aldosterone/renin levels. - Cardiology discontinued Nicardipine drip and recommend continuation of Coreg and Hydralazine.[facility]06-27-2025 NoteFall event PT OT to see patient fall precautionsUnWilson Memorial Hospital06-27-2025 NoteCase was discussed with the [...] Progress Note - 03/14/2025 11:33 AM; Room: [address] [place] [address] Admission: 03/13/2025 1:02 AM; Length of stay: 1 days THE HOSPITALIST TEAM PREFERS TO USE CoPatient CHAT FOR NON-URGENT COMMUNICATION 7AM-7PM. IF I DO NOT RESPOND WITHIN 20 MINUTES OR URGENT MATTERS, PLEASE CALL THROUGH THE HEAD SULFIDE OPERATOR. FROM 7PM-7AM, PLEASE PAGE [phone](COVR). Code Status: Full Code Barriers to Discharge: [...] stenosis >50% Stage 4 chronic kidney disease ([facility]/HCC) - Nephrology consult blood pressure controlled aim [...] further evaluation. NSTEMI (non-ST elevated myocardial infarction) ([facility]) As above Severe protein-calorie malnutrition ([facility]) - history of severe unintentional [...] diabetes mellitus with other diabetic kidney complication ([facility]) - Blood sugar check diet Tobacco dependence - Nicotine replacement counseling, discussed with patient about having coronary disease peripheral arterial disease which can worsen with tobacco use Nutrition Screen (more content not included)...[facility]06-27-2025 NoteOccupational Therapy Occupational Therapy Evaluation Patient Name: Marleni Dennis : 1950 Today's Date: 03/14/2025 Time In: 931 Time Out: 949 Marleni Dennis is an 74 y.o. female admitted from [facility] as a direct transfer where she presented [...] Walker rolling, Rollator, Emergency Alert (sc, gb, [facility] rts) Home Layout: Able to live on main level with bedroom/bathroom, Full bath main level Home Access: Stairs to enter with rails (3) Bathroom Shower/Tub: Walk-in shower Prior Level of Function Prior Function Level of [place]: Independent with ADLs and functional transfers, Independent [...] flex/aarom wfo@ 3/5., represets as a RTC knju,, distal wfl) LUE Assessment LUE Assessment: Within [...] Eating meals?: None (Independent) Total Score OT [facility]: 21 Assessment/Plan OT Assessment OT Impairments: Decreased ADL status, Decreased endurance, Decreased functional mobility OT Assessment/PEOPLESOFT FINANCIAL DEVELOPER Summary: (needs skilled OT due to weakness [...] [1] Patient Active Prob (more content not included)...[facility]06-27-2025 NotePhysical Therapy Physical Therapy Treatment Patient [...] Clicks T-Score: 18 Assessment/Plan PT Assessment PT Assessment/BLOOD BANK SPECIALIST Summary: The patient requires skilled PT interventiondue [...] chair with chair alarm (more content not included)...[facility]06-26-2025 Note03/13/25 1707 Admission Assessment Questions Verify [...] Not Interested Does the patient have a telehealth case manager assigned to them through their [...] and recent fall at home; PT=not able, OT=HHC.[facility]06-26-2025 Note Physical Therapy Physical Therapy Evaluation [...] Summary: 72 y/o female s/p transfer from [facility] after presenting following fall and uncontrolled HTN. 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 PMH: HTN, renal artery stenosis, DVT/PE, CKD4, CAD s/p CABG, PVD s/t B common iliac stenting, LEE, depression, occluded carotid artery Current Dx: NSTEMI Patient off floor at [facility]. Will return to attempt eval. Kari Figueroa PT, MPT [facility] RehabilitationUnWilson Memorial Hospital 03-13-2025 NoteSuspect secondary hypertension most likely due to renal artery stenosis continue nitrates add Coreg we will have cardiology see patient as well as nephrology. Discussed with patient but tobacco abstinence low-salt low-fat dietUnWilson Memorial Hospital06-26-2025 NoteMay benefit repeating duplex scan of the abdomen as an outpatientUnWilson Memorial Hospital06-26-2025 NoteFall event PT OT to see patient fall precautionsUnWilson [facility] 03-13-2025 NoteWith issues with hypertension discontinue Wellbutrin she scored 4 on depression scale we will add LexaproUnWilson Memorial Hospital06-26-2025 Note Nicotine replacement counseling, discussed with patient about having coronary disease peripheral arterial disease which can worsen with tobacco useUnWilson Memorial Hospital06-26-2025 Note) Blood sugar check dietUnWilson Memorial Hospital06-26-2025 NoteContinue Zetia aspirinUnWilson Memorial Hospital06-26-2025 NoteCycle troponin patient has intolerance and side effect with statins currently on Zetia and fibrate on aspirin Cardiology follow-up patientUnWilson Memorial Hospital06-26-2025 NoteAs aboveUnWilson Memorial Hospital06-26-2025 NoteNephrology consult blood pressure controlled aim for good glycemic control avoid nephrotoxic meds will discontinue NSAIDs which she is taking as well as ARB [facility]06-26-2025 NoteHospital Medicine History and Physical 03/13/2025 2:55 AM THE HOSPITALIST TEAM PREFERS TO USE EPIC CHAT FOR NON-URGENT COMMUNICATION 7AM-7PM. IF I DO NOT RESPOND WITHIN 20 MINUTES OR URGENT MATTERS, PLEASE CALL THROUGH THE HEAD SULFIDE OPERATOR. FROM 7PM-7AM, PLEASE PAGE [phone](COVR). Chief Complaint No chief complaint on file. History of Present Illness Marleni Dennis is an 74 y.o. female admitted from [facility] as a direct transfer where she presented [...] CPAP. He came to the ER at [facility] because of a fall according to patient [...] artery disease without angina (more content not included)...[facility]06-10-2025 History of Present illness Narrative* Renetta [...] bilateral femoral stent FEMORAL ARTERY STENT Bilateral FL REMOVE TONSILS/ADENOIDS,12+ Y/O SPINE SURGERY fusion of [...] mellitus with diabetic chronic kidney disease (CMS/HCC) Discussed today the importance of proper diabetic [...] No follow-ups on file. documented in this encounterCedar County Memorial [id number] History of Present illness Narrative* Jack Vogt [...] in water exercises//Pt brought letter from ins [place] re: taking fenobibrate and zetia together). Hypertension [...] mg) before bedtime. 90 tablet 11 HYDROcodone-acetaminophen ([place]) 5-325 MG tablet Take 1 tablet by [...] History: Procedure Laterality Date CARDIAC SURGERY CHOLECYSTECTOMY 1986 CORONARY ANGIOPLASTY WITH STENT PLACEMENT CORONARY STENT PLACEMENT 2016 3 stents, bilateral femoral stent FEMORAL ARTERY STENT Bilateral FL REMOVE TONSILS/ADENOIDS,12+ Y/O SPINE SURGERY fusion of [...] factors. LDL-C is now calculated using the Andres-Estrada calculation, which is a validated novel method providing better accuracy than the Friedewald equation in the estimation of LDL-C. Andres SS et al. NICOLE. 2013;310(19): 1229-6457 (http://education.Xanofi.[employer]/faq/MOF277) CHOL/HDLC RATIO 01/01/2025 3.7 <5.0 (calc) Final [...] F/U, Perform Labwork (CMP). documented in this encounterCedar County Memorial [id number] History of Present illness Narrative* Jack Vogt [...] NEEDED FOR SLEEP 30 tablet 5 HYDROcodone-acetaminophen ([place]) 5-325 MG tablet Take 1 tablet by [...] you have a medical power of attorney law clerk?: No Objective : BP 132/62 Pulse 65 [...] living will and durable power of attorney law clerk for healthcare. We discussed telling [place] people [...] - Handicap Placard 5 Years - HYDROcodone-acetaminophen ([place]) 5-325 MG tablet; Take 1 tablet by mouth every 6 (six) hours if needed for severe pain Stage 3b chronic kidney disease (HCC) ([facility]/HCC) - Comprehensive metabolic panel; Future - CBC and differential Pulmonary fibrosis, unspecified ([facility]) Type 2 diabetes mellitus with diabetic peripheral angiopathy without gangrene ([facility]) - POCT Glycated hemoglobin, total - Lipid [...] on December 12, 2024 documented in this encounterCedar County Memorial HospitalQarxzupzcv17-57-2803 Hospital Discharge instructions Patient Education 11/18/2024 14:23:43 [...] provider. Document Revised: 01/13/2022 Document Reviewed: 01/13/2022 [employer] ([employer]) Patient Education 2023 Magazino. Follow Up Care 09/30/2024 12:57:18 With:RONALD BEAULIEU, Alfredo Moya, URL Address: [facility] [address] , [place] [address]- [phone] When: Unknown [facility] 03-03-2025 NotePatient Education Obstetrics and Gynecology [...] provider. Document Revised: 01/13/2022 Document Reviewed: 01/13/2022 [employer] Social Patient Education ? 2023 Magazino.[facility] 11-04-2024 Telephone encounter Note* Telephone Encounter - Brianne Portillo - 11/04/2024 9:31 AM EST Pt scheduled [facility] [id number] Miscellaneous Notes* Telephone Encounter - Brianne Portillo - 11/04/2024 9:31 AM EST Pt scheduled * Telephone Encounter - GISSELLE Sigala - 11/04/2024 8:00 AM EST Please help pt get set up for Medicare Wellness visit after 12/12. Cymbalta refill sent. documented in this encounterCedar County Memorial HospitalGzujcnidyp23-01-4040 Telephone encounter Note* Telephone Encounter - GISSELLE Sigala - 11/04/2024 8:00 AM EST Please help pt get set up for Medicare Wellness visit after 12/12. Cymbalta refill sent. [facility] [id number] NoteUT Cardiology - [facility] Subjective Marleni Dennis is a 73 [...] bypass graft Coronary stent patent Pulmonary embolus ([facility]) Hyperlipidemia Hypertensive disorder Osteoarthritis PVD (peripheral vascular disease) ([facility]) Allergy to statin medication Anemia due to chronic blood loss 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 Atherosclerosis of coronary artery without angina pectoris Benign essential hypertension Carotid artery occlusion without infarction Celiac artery compression syndrome ([facility]) Daytime somnolence Decreased estrogen level Degenerative lumbar spinal stenosis Depressive disorder Dissection of abdominal aorta ([facility]) Fibrocystic breast changes Fibromyalgia Gastroesophageal reflux disease Generalized abdominal pain History of thromboembolism of vein Insomnia Diabetic renal disease ([facility]) Left foot drop Lumbar radiculopathy [...] of both knees Pulmonary embolism with infarction ([facility]) Statin intolerance Type 2 diabetes mellitus with other diabetic kidney complication ([facility]) Tobacco dependence Stage 4 chronic kidney disease ([facility]) TMOASA (acute kidney injury) ([facility]) Anemia Left knee pain Localized edema Lower GI bleed Lymphedema Poor dental hygiene Stage 3b chronic kidney disease ([facility]) Urge incontinence Weakness generalized Family [...] therapy. She was admitted previously to the [facility] due to significant lower extremity edema. She underwent testing including arterial duplex ultrasound that suggested possible significant stenosis. She denies symptoms of ischemia in the legs. She uses a cane to ambulate. (more content not included)...[facility]07-02-2024 Hospital Discharge instructions Patient Education 03/19/2024 [...] nerve stimulation). ?For women, using a medical operations supervisor to prevent urine leaks. This is a [...] right after experiencing incontinence. General instructions Take lxjp-jxv-nsysgij and prescription medicines only as told by [...] important. Where to find more information National [place] of Diabetes and Digestive and Kidney Diseases: www.niddk.nih.gov Citizen Of [place] Urology Association: www.urologyhealth.org Contact a health care [...] provider. Document Revised: 04/09/2021 Document Reviewed: 04/09/2021 [employer] ([employer]) Patient Education 2022 Magazino. Follow Up Care 10/23/2023 13:29:02 With:Alfredo CARDENAS MD, URL Address: [facility] [address] [place] [address]- [phone] When: Unknown Comments:6 mos w/ MRI [facility] 07-02-2024 Hospital Discharge instructions Follow Up Care 03/19/2024 15:04:53 With:Alfredo CARDENAS MD, URL Address: [facility] [address] [place] [address]- [phone] When: Unknown [facility] 07-02-2024 NotePatient Education Urology Urinary Incontinence Urinary [...] stimulation). ? For women, using a medical operations supervisor to prevent urine leaks. This is a [...] that can protect the (more content not included)...[facility]02-05-2024 Hospital Discharge instructions Patient Education 10/23/2023 13:23:49 [...] nerve stimulation). ?For women, using a medical operations supervisor to prevent urine leaks. This is a [...] right after experiencing incontinence. General instructions Take gaad-dkp-fjpuvzv and prescription medicines only as told by [...] important. Where to find more information [place] of Diabetes and Digestive and Kidney Diseases: www.niddk.nih.gov Citizen Of [place] Urology Association: www.urologyhealth.org Contact a health care [...] Document Reviewed: 04/09/2021 Elsevier Patient Education 2022 Magazino. Follow Up Care 07/28/2023 12:50:01 With:RONALD BEAULIEU, Alfredo Moya, MACHOL Address: [facility] [address] [place] [address]- [phone] When: Unknown [facility] 01-09-2023 Hospital Discharge instructions Patient Education 09/26/2022 13:45:35 Urinary Tract Infection, Adult, Qyfw-yb-Fkfl Urinary Tract Infection, Adult A urinary tract [...] Follow these instructions at home: Medicines Take knlr-ivs-hloghiy and prescription medicines only as told by [...] 02/20/2009 Document Revised: 08/22/2019 Document Reviewed: 03/14/2019 [employer] ([employer]) Patient Education 2020 Magazino. Follow Up Care 03/04/2022 10:43:44 With:RONALD BEAULIEU, Alfredo Moya, URL Address: [facility] [address] , [place] [address] [phone] When:Within 10 Month(s) Comments:MICHELLE chapin/ ron [facility] 06-17-2022 Hospital Discharge instructions Patient Education [...] Treatment for this condition includes: Antibiotic medicine. Ulna-cjs-ikvcctv medicines to treat discomfort. Drinking enough water [...] Follow these instructions at home: Medicines Take eusp-spm-brtdfqp and prescription medicines only as told by [...] 06/14/2006 Document Revised: 08/22/2019 Document Reviewed: 03/14/2019 [employer] ([employer]) Patient Education 2020 [employer] Follow Up Care 06/28/2021 14:36:35 With:Alfredo CARDENAS MD, URL Address: [facility] [address], [place] [address]- [phone] When:09/03/2022 [facility] evaluation + Plan note Future Appointments Appointment Date:08/29/2022 01:30:00 PM Scheduled Provider:Alfredo CARDENAS MD Location:[facility] Appointment Type:URO Office Visit [facility] evaluation + Plan note Future Appointments Appointment Date:07/24/2023 01:15:00 PM Scheduled Provider:Alfredo CARDENAS MD Location:[facility] Appointment Type:URO Office Visit [facility] evaluation + Plan note Future Appointments Appointment Date:01/22/2024 11:45:00 AM Scheduled Provider:Alfredo CARDENAS MD Location:[facility] Appointment Type:URO Office Visit [facility] evaluation + Plan note Future Appointments Appointment Date:09/30/2024 01:15:00 PM Scheduled Provider:Alfredo CARDENAS MD Location:[facility] Appointment Type:URO Office Visit [facility] evaluation + Plan note Future Appointments Appointment Date:10/07/2024 12:30:00 PM Scheduled Provider:Alfredo CARDENAS MD [facility] Type:URO Office Visit [facility] evaluation + Plan note Future Appointments Appointment Date:11/24/2025 01:15:00 PM Scheduled Provider:Alfredo CARDENAS MD [facility] noteNo assessment information available [facility] Work Phone: Evaluation note* Diagnosis Onset Date Resolution Status Bilateral primary osteoarthritis of knee acuteLymphedemaacuteNicotine useacutePoor dental hygieneacuteWeakness generalizedacute [facility] Work Phone: Evaluation note* Diagnosis [...] claudication Stage 3b chronic kidney disease (HCC) ([facility]/HCC) Pulmonary fibrosis, unspecified (CMS/HCC) Type 2 diabetes mellitus with diabetic peripheral angiopathy without gangrene ([facility]) Localized edema Edema [facility] encounter [facility] Diagnosis Stage 3b chronic kidney disease (HCC) (CMS/HCC)- Primary Pulmonary fibrosis, unspecified (CMS/HCC) Localized edema Edema Anxiety Anxiety state, unspecified Depressive disorder ([facility]/HCC) Depressive disorder, not elsewhere classified [facility]* Diagnosis Thyroid nodule (CMS/HCC)- Primary Nontoxic uninodular goiter 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/HCC) Chronic kidney disease, stage 4 (severe) (CMS/HCC) Hair loss Unspecified alopecia Other fatigue Weight loss Loss of weight Depressive disorder ([facility]/HCC) Depressive disorder, not elsewhere classified Decreased estrogen level documented [facility] encounter [facility]* Diagnosis 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- Primary Type [...] Routine lab draw documented in this encounter [facility]* Diagnosis Onset Date Resolution Status Admit Date TOMASA (acute kidney injury) acuteJuly 2024 3:58pmAnemiaacuteJuly 2024 3:58pmChronic kidney disease, stage IV (severe)acuteJuly 2024 3:58pmProteinuriaacuteJuly 2024 3:58pm [facility] Work Phone: Evaluation note* Diagnosis Chronic kidney disease, stage 4 (severe) (HCC)- Primary Benign essential hypertension Essential hypertension, benign Functional diarrhea 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 Chronic diastolic congestive heart failure (HCC) Hypokalemia Hypopotassemia documented in this encounter [facility] HealthcareEvaluation note* Diagnosis Chronic kidney disease, stage 4 (severe) (HCC)- Primary Chronic diastolic congestive heart failure (HCC) 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 Benign essential hypertension Essential hypertension, benign Degenerative lumbar spinal stenosis Spinal stenosis of lumbar region Radiculopathy of lumbar region Spinal stenosis, lumbar region with neurogenic claudication Spondylolisthesis of lumbar region Need for home health care Routine lab draw Advanced care planning/counseling discussion documented in this encounter [facility] HealthcareEvaluation note* Diagnosis Onset Date Resolution Status Admit Date Anemia acuteOctober 2024 4:07pmChronic kidney disease, stage IV (severe)acute July 15, 2025 4:07pmFolate deficiencyacuteOctober 2024 4:07pm HyperparathyroidismacuteOctober 2024 4:07pmHypocalcemiaacuteOctober 2024 4:07pmHypokalemiaacuteOctober 2024 4:07pmHypomagnesemiaacuteOctober 2024 4:07pmIron deficiencyacuteOctober 2024 4:07pmProteinuriaacute July 15, 2025 4:07pmHypertensive nephropathyresolvedOctober 2024 4:07pm [facility] Work Phone: Hospital course Narrative No data available for this section [facility] Hospital Discharge instructions Additional Instructions [facility] to manage care: - Full code - PT/OT eval and treat - Routine vital signs - Avoid NSAIDs - GI office will follow-up pathology for H. pylori and if positive recommend 14 days of quad therapy - otherwise, patient will not need outpatient GI follow-up - Renal function [facility] in 7 days [facility]: Progress note No data available for this section [facility] reason for referral (narrative)No reason for referral information availableGu[facility] Work Phone: Summary Purpose Family History [...] April 08, 2025 3:58 pm Sent by Media Supervisor April 08, 2025 9:1 6pm Reason for [...] Weakness generalized April 08, 2025 9:1 6pm Chief Complaint Admit Date renal 3 month [...] Hypertensive nephropathy July 15, 2 025 4:07pm Additional Source Comments INFORMATION SOURCE (unrecogn ized section and content) DATE CREATED AUTHOR 07/06/2018 [facility] DATE CREATED AUTHOR AUTHOR'S ORGANIZ ATION 01/26/2023 [facility] DATE CREATED AUTHOR AUTHOR'S ORGANIZ ATION 11/19/2024 [facility] DATE CREATED AUTHOR AUTHOR'S ORGANIZ ATION 04/07/2025 [facility] DATE CREATED AUTHOR AUTHOR'S ORGANIZ ATION 05/27/2025 [facility] DATE CREATED AUTHOR AUTHOR'S ORGANIZ ATION 06/10/2025 [facility] DATE CREATED AUTHOR AUTHOR'S ORGANIZ ATION [...] Active Start: February 05, 2024 End: February 044Referral SelfAttending ProviderActiveStart: February 05, 2024 End: February 05, 2024Team MemberRelationshipSpecialtyStart DateEnd Date Jack Vogt MD [address] [address] [place] [address] PCP - GeneralInternal Medicine01/24/23Team MemberRelationshipSpecialtyStart Date End Date Jack Vogt MD [address] [facility] [address] [place] [address] PCP - GeneralInternal Medicine01/24/23Team MemberRelationshipSpecialtyStart Date End Date Jack Vogt MD [address] [facility] [address] [place] [address] PCP - GeneralInternal Medicine01/24/23Team MemberRelationshipSpecialtyStart Date End Date Jack Vogt MD [address] [facility] [address] [place] [address] PCP - GeneralInternal Medicine01/24/23Team MemberRelationshipSpecialtyStart Date End Date Jack Vogt MD [address] [facility] [address] [place] [address] PCP - GeneralInternal Medicine01/24/23Team MemberRelationshipSpecialtyStart Date End Date Jack Vogt MD [address] [facility] [address] [place] [address] PCP - GeneralInternal Medicine01/24/23Team MemberRelationshipSpecialtyStart Date End Date Jack Vogt MD [address] [facility] [address] [place] [address] PCP - GeneralInternal Medicine01/24/23am MemberRelationshipSpecialtyStart Date End Date Jack Vogt MD [address] [facility] [address] [place] [address] PCP - GeneralInternal Medicine01/24/23Team MemberRelationshipSpecialtyStart Date End Date Jack Vogt MD [address] [facility] [address] [place] [address] PCP - GeneralInternal Medicine01/24/23am MemberRelationshipSpecialtyStart Date End Date Jack Vogt MD [address] [facility] [address] [place] [address] PCP - GeneralInternal Medicine01/24/23Team MemberRelationshipSpecialtyStart Date End Date Jack Vogt MD [address] [facility] [address] [place] [address] [facility]/24/23 Team Status: Inactive Member Role Status Dates Jack Vogt II MD Primary Care Provider Active Start: April 08, 2025 End: April 08sam Patino , MDAttending ProviderActiveStart: April 08, 2025 End: April 08, 2025 Team Status: Active Member Role Status Dates Jack Vogt II MD Primary Care Provider Active Start: April 08, 2025 Juhi Hickey ProviderActiveStart: April 08, 2025 Obney Pabloomar , MDAdmit ProviderActiveStart: April 08, 2025 Obney Pabloomar , MDAttending ProviderActiveStart: April 08, 2025 Team Status: Active Member Role Status Dates Jack Vogt II MD Primary Care Provider Active Start: April 08, 2025 Donnell Hickeyergesophie ProviderActiveStart: April 08, 2025 Rajiv Trejo , MDAdmit ProviderActiveStart: April 08, 2025 Nick Antonio MDOther ProviderActiveStart: April 08, 2025 Kana Vazquez MDOther ProviderActiveStart: April 08, 2025 Judy Espinosa MDOther ProviderActiveStart: April 08, 2025 Estrella Velásquez MDOther ProviderActiveStart: April 08, 2025 Malinda Bullard ProviderActiveStart: April 08, 2025 Andrew Arrington MDOther ProviderActiveStart: April 08, 2025 Estefania Yoder , APRNOther ProviderActiveStart: April 08, 2025 Keith Koehler Jr, DOOther ProviderActiveStart: April 08, 2025 Pilo Harry MDOther ProviderActiveStart: April 08, 2025 Team MemberRelationshipSpecialtyStart DateEnd Date Jack Vogt MD [address] [place] [address] PCP - GeneralInternal Medicine01/24/23Team MemberRelationshipSpecialtyStart Date End Date Jack Vogt MD [address] [place] [address] PCP - GeneralInternal Medicine01/24/23Team MemberRelationshipSpecialtyStart Date End Date Jack Vogt MD [address] [facility] [address] [place] [address] PCP - GeneralInternal Medicine01/24/23 Chantelle Recio, HEARING EXAMINER [address] [place] [address] Social WorkerChi Health Mercy [facility]uffsly Medicine06/10/25Team MemberRelationshipSpecialtyStart DateEnd Date Jack Vogt MD [address] [facility] [address] [place] [address] PCP - GeneralInternal Medicine01/24/23 Chantelle Recio, HEARING EXAMINER [address] [place] [address] [facility]er[facility] Medicine06/10/25Team MemberRelationshipSpecialtyStart DateEnd Date Jack Vogt MD [address] [facility] [address] [place] [address] PCP - GeneralInternal Medicine01/24/23 Chantelle Recio, HEARING EXAMINER [address] [place] [address] Social WorkerFafall river hospital Medicine06/10/25 Valerie Go, DEBORA [address] [facility] [address] [place] [address] Registered NurseMilford [facility] Medical [facility] Tjlsxzmn19/13/25 Team Status: Active Member Role/Relationship Status Dates Jack Vogt II MD Primary Care Provider Active Team Status: Active Member Role/Relationship Status Dates Jack Vogt II MD Primary Care Provider Active Start: July 09, 2025 Elsy Patino MDAttending ProviderActiveStart: July 09, 2025 Team Status: Active Member Role/Relationship Status Dates Jack Vogt II MD Primary Care Provider Active Start: July 11, 2025 Elsy Patino MDAttending ProviderActiveStart: July 11, 2025 Team Status: Inactive Member Role/Relationship Status Dates Jack Vogt II MD Primary Care Provider Active Start: July 15, 2025 End: July 15sam Patino MDAttending ProviderActiveStart: July 15, 2025 End: July 15, 2025Team MemberRelationshipSpecialtyStart DateEnd Date Jack Vogt MD [address] [facility] [address] [place] [address] PCP - GeneralInternal Medicine01/24/23 Chantelle Recio, HEARING EXAMINER [address] [place] [address] Social Workermily Medicine06/10/25 Valerie Go RN [address] [facility] [address] [place] [address] Registered NurseChi Health Mercy [facility]uffsly Boyqxsvb33/13/25Team MemberRelationshipSpecialtyStart DateEnd Date Jack Vogt MD [address] [facility] [address] [place] [address] PCP - GeneralInternal Medicine01/24/23 Chantelle Rceio, HEARING EXAMINER [address] [place] [address] Social Workermi Medicine06/10/25 Valerie Go RN [address] [facility] [address] [place] [address] Registered NurseFamily Jpcnbswu43/13/25 Goals (unrecognized section and content) Type Treatment Intervention Code Status: Full Code Reason for Visit (unrecogniz ed section and content) ReasonCommentsMed RefillReasonCommentsMedicare Annual Wellness Visit Subsequent Med RefillWould like rx for hydrocodone--states she gets 2ReasonCommentsDiabetes EdemaResultsLab resultsMed RefillCymbalta-both doses- [facility] bellNeed note stating she can participate in water exercisesPt brought letter from ins co re: taking fenobibrate and zetia togetherReasonCommentsFollow-upTransferred to [facility] from [facility] 03/13/25 dx: HTN urgency,NSTEMI discharged home03/20/25 med changes made follow up with cardiology 04/02/25 and nephrology 05/06/25discuss referralPt would like a referral sent to nephrology in [place] she does not want to go to [facility] Onset DateCommentsMed [id number]/25/2025ReasonCommentsHypertensionswelling of lower extremitiesright flank painReasonCommentsWeight [id number] for home health FOR RECORDS PERTAINING TO [...] BE BASED ON THE PRIMARY CLINICAL RECORDS. [employer] provides no warranty or guarantee of the accuracy or completeness of information in this document.
[2025-07-23 10:34] LABS: Albumin Level 3.2 g/dL (3.4-5.0); Anion Gap 17.7; Calcium 8.7 mg/dL (8.5-10.1); Carbon Dioxide 23.4 mmol/L (21.0-32.0); Chloride 101 mmol/L (98-107); Estimated GFR (African America 15 (>=60 mL/min/1.73m^2); Estimated GFR (Non-African Ame 13 (>=60 mL/min/1.73m^2); Glucose 105 mg/dL (74-106); Potassium 5.1 mmol/L (3.5-5.1); Sodium 137 mmol/L (136-145)
[2025-07-23 10:39] LABS: Blood Urea Nitrogen 78.0 mg/dL (7.0-18.0)
--- OUTSIDE RECORDS SUMMARY | 2025-08-29 19:00 | XMS_ITS | Clinical Summary ---
Author Organization Unknown Care Team Providers Care Manager Research Development Name Role Phone FRANCHESCA BEAULIEU, ROMARIO Unavailable Unavailable TASHA RN, BRANDON Unavailable Unavailable WILMER CONTRACTING SUPPORT SPECIALIST, DON Unavailable Unavailable COPJOSI ADÁN, YAW Unavailable Unavailable GOSCHE OT, PROSPER Unavailable Unavailable KOHLENBERG CONTRACTING SUPPORT SPECIALIST, GABRIELLA Unavailable Unavailabl e POP PT, NICOLLE Unavailable Unavailable VIVIAN MCCAIN, NGOC Unavailable Unavailbettye WAYNE RN, ROQUE Unavailable Unavailbettye ZAZUETA RN, VIKRAM Unavailable Unavailable COY RN, SUSIE Unavailable Unavailable KRISTY CONTRACTING SUPPORT SPECIALIST, LOUISA Unavailable Unavailable SHAFER CONTRACTING SUPPORT SPECIALIST, MYA Unavailable Unavailabl e Payers Payer Name Policy Type Policy Number Effective Date Expira tion Date [facility] (FFS) [id number] Problems Condition Name Condition Details Condition Category Status Onset Date Resolution Date Last Treatment Date Treating Clinician Comments FIBROMYALGIA Xsrree8465-00-91 00:00:00HYP HRT AND CHR KDNY DIS W HRT FAIL AND STG 1-4/UNSP CHR YNJXEixdaj2774-41-35 00:00:00CHRONIC DIASTOLIC (CONGESTIVE) HEART FAILURE Jvjeuo8362-15-88 00:00: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 OVIWNBRXejmxh2586-98-05 00:00:00CHRONIC KIDNEY DISEASE, STAGE 4 (SEVERE)Active 2025-07-02 00:00:00ATHSCL HEART DISEASE OF [place] CORONARY ARTERY W/O ANG PCTRS Bfqfod5543-83-37 00:00:00PRIMARY GENERALIZED (OSTEO)AXTRKJONQUwepdl8041-85-62 00:00:00ANXIETY DISORDER, WSBGGTFAWKSMjdevk8724-93-47 00:00:00DEPRESSION, VOZDKIIDHAQMovkti8235-65-44 00:00:00SOLITARY PULMONARY QKQFBIUqccbj4424-43-82 00:00:00RADICULOPATHY, LUMBAR EXIMEPPtozol0433-53-88 00:00:00SPINAL STENOSIS, LUMBAR REGION WITH NEUROGENIC VXVFXPUAKVGVXaztte3236-60-69 00:00:00 SPONDYLOLISTHESIS, LUMBAR AWFBUILxeegk3217-54-58 00:00:00OLD MYOCARDIAL UPCDYEQRCNPyxmby0279-74-93 00:00:00ACUTE KIDNEY FAILURE, UNSPECIFIEDActive 2025-07-02 00:00:00MIXED WKGKVNHJBGNUAREelilh0706-42-41 00:00:00OBESITY, WIXTYYAJQJRSyflsq1369-74-79 00:00:00INSOMNIA, VPEDOFPTOTCSyxvsj9813-42-38 00:00:00UNSPECIFIED SEVERE PROTEIN-CALORIE ZRJRJCCHKSJSVpqfqi7509-55-42 00:00:00 GASTRO-ESOPHAGEAL REFLUX DISEASE WITHOUT KAIYSEECFTZSzurdm3172-23-87 00:00:00 HGXLUFXJINUWMPDvxohs8824-74-07 00:00:00OBSTRUCTIVE SLEEP APNEA (ADULT) (PEDIATRIC)Dxnzfs3602-46-24 00:00: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 Ordering Clinician Indication Dosage Frequency Signature (SIG) Comments Components Ambien 5 mg tablet 2025-03-13 00:00: 23:59:[id number] tabletBEDTIME1 tablet BEDTIME (route: oral)Med Classification: Central Nervous System Agents Aspirin Childrens 81 mg chewable exubdz9996-84-52 00:00: 23:59:00No [id number] tabletDAILY1 tablet DAILY (route: oral)Med Classification: Hematological AgentsCardura 2 mg fvpkbt6307-40-25 00:00:00Yes [id number] tabletDAILY1 tablet DAILY (route: oral)Med Classification: Cardiovascular Therapy Agentsclonidine HCl 0.1 mg tablet 2025-03-13 00:00: 23:59:[id number] tabletDAILY1 tablet DAILY (route: oral)Med Classification: Cardiovascular Therapy AgentsCoreg 25 mg tablet 2025-03-13 00:00:[id number] tabletEVERY 12 HOURS1 tablet EVERY 12 HOURS (route: oral)Med Classification: Cardiovascular Therapy AgentsEliquis 2.5 mg mpkavw3933-55-37 00:00: 23:59:[id number] THINNER2 tablet EVERY 12 HOURS2 tablet EVERY 12 HOURS (route: oral)Med Classification: Hematological Agentsfenofibrate 160 mg krnmyk5315-59-12 00:00: 23:59:[id number] tabletDAILY1 tablet DAILY (route: oral)Med Classification: Cardiovascular Therapy Agentshydralazine 100 mg rhadhq7655-16-94 00:00:[id number] tabletEVERY 8 HOURS1 tablet EVERY 8 HOURS (route: oral)Med Classification: Cardiovascular Therapy AgentsLexapro 5 mg wpeirf9916-42-93 00:00:[id number] tabletDAILY1 tablet DAILY (route: oral)Med Classification: Central Nervous System Agentsmelatonin 5 mg qfrvweg2449-91-25 00:00:481658-08-72 23:59:[id number] capsule BEDTIME1 capsule BEDTIME (route: oral)Med Classification: Central Nervous System AgentsProcardia XL 90 mg tablet,extended gpnukfk5081-49-22 00:00:[id number] HYPERTENSION1 tabletEVERY 12 HOURS1 tablet EVERY 12 HOURS (route: oral)Med Classification: Cardiovascular Therapy AgentsProtonix 40 mg tablet,delayed zwqtteu2124-61-71 00:00:[id number] tabletDAILY1 tablet DAILY (route: oral)Med Classification: Gastrointestinal Therapy AgentsTums 200 mg (as calcium carbonate 500 mg) chewable bufhzd6909-51-16 00:00:[id number] STOMACH2 tabletAS NEEDED2 tablet NEEDED (route: oral)Med Classification: Gastrointestinal Therapy AgentsZetia 10 mg ozlbdu8409-96-76 00:00:00Yes [id number] tabletDAILY1 tablet DAILY (route: oral)Med Classification: Cardiovascular Therapy Agentstramadol 50 mg auhomm9441-48-70 00:00:[id number] needed for severe pain50 mg3 TIMES DAILY50 mg 3 TIMES DAILY (route: oral)Med Classification: Analgesic, Anti-inflammatory or Antipyreticondansetron HCl 4 mg ghphud7984-79-14 00:00:914372-07-65 23:59:00No [id number] AND/OR VOMITING1 tabletEVERY 8 HOURS1 tablet EVERY 8 HOURS (route: oral)Med Classification: Gastrointestinal Therapy Agentsaspirin 81 mg yuwmda1639-26-43 00:00:[id number] tabletDAILY1 tablet DAILY (route: oral)Med Classification: Hematological AgentsEliquis 2.5 mg mtphun4225-21-33 00:00:[id number] THINNER1 tablet2 TIMES DAILY1 tablet 2 TIMES DAILY (route: oral)Med Classification: Hematological Agentsisosorbide mononitrate ER 30 mg tablet,extended release 24 sa2728-89-04 00:00:[id number] tablet DAILY1 tablet DAILY (route: oral)Med Classification: Cardiovascular Therapy Agentsspironolactone 25 mg rkiurw1922-96-77 00:00:[id number] tablet DAILY1 tablet DAILY (route: oral)Med Classification: Cardiovascular Therapy AgentsTylenol PM Extra Strength 25 mg-500 mg jrijho3723-27-40 00:00:00Yes [id number] NEEDED FOR SLEEP1 tabletBEDTIME1 tablet BEDTIME (route: oral)Med Classification: Analgesic, Anti-inflammatory or AntipyreticLasix 40 mg tablet 2025-07-02 00:00:[id number] tablet2 TIMES DAILY1 tablet 2 TIMES DAILY (route: oral)Med Classification: Cardiovascular Therapy AgentsImodium Multi- Symptom Relief 2 mg-125 mg oaaqil1031-19-91 00:00:[id number] BOWEL MOVEMENTSPer instructionsAS NEEDEDPer instructions NEEDED (route: oral)Med Classification: Gastrointestinal Therapy Agentsmagnesium 400 mg (as magnesium oxide) ncdwil4553-25-93 00:00:361670-86-07 23:59:[id number] MAGNESIUM1 tabletDAILY1 tablet DAILY (route: oral)Med Classification: Electrolyte Balance- Nutritional ProductsAmbien 5 mg jhhfvw6545-25-83 00:00:[id number] tabletBEDTIME1 tablet BEDTIME (route: oral)Med Classification: Central Nervous System Agentsclonidine HCl 0.1 mg cqhszy2769-87-66 00:00:[id number] BLOOD PRESSURE1 tablet3 TIMES DAILY1 tablet 3 TIMES DAILY (route: oral)Med Classification: Cardiovascular Therapy Agentsmagnesium 400 mg (as magnesium oxide) ultvmd9825-52-24 00:00:[id number] MAGNESIUM1 tablet2 TIMES DAILY1 tablet 2 TIMES DAILY (route: oral)Med Classification: Electrolyte Balance- Nutritional Productsbumetanide 2 mg xuzasn0566-96-94 00:00:[id number] OVERLOAD1 tablet2 TIMES DAILY1 tablet 2 TIMES DAILY (route: oral)Med Classification: Cardiovascular Therapy Agentsferrous sulfate 325 mg (65 mg iron) xudxpw6832-74-34 00:00:[id number] tablet2 TIMES DAILY1 tablet 2 TIMES DAILY (route: oral)Med Classification: Electrolyte Balance-Nutritional Productspotassium chloride ER 20 mEq tablet,extended gwuxicm2324-95-89 00:00:00 [id number] POTASSIUM1 tabletDAILY1 tablet DAILY (route: oral)Med Classification: Electrolyte Balance-Nutritional Productsfolic acid 1 mg tablet 2025-07-15 00:00:[id number] FOLATE1 tabletDAILY1 tablet DAILY (route: oral)Med Classification: Electrolyte Balance-Nutritional Productsfenofibrate nanocrystallized 145 mg wfmway6435-30-91 00:00:[id number] tabletDAILY1 tablet DAILY (route: oral)Med Classification: Cardiovascular Therapy Agents Vital Signs Vital Name Observation Time Observation Value Commen ts Temperature 2025-07-21 14:20:00.000 97.6 [degF] Whklfuexcvh0684-71-43 12:55:00.34415.2 [degF]Tanpvwpjmqr0951-85-72 16:01:00.000 98.8 [degF]Cjzcpkhmxci7746-12-72 12:33:00.73253.3 [degF]Mghqiulelio9136-67-78 14:10:00.80223.3 [degF]Udluvnhyena0132-26-74 12:30:00.93980.9 [degF]Temperature 2025-07-09 13:59:00.74093.2 [degF]Rollhcmtbzg8905-07-30 13:44:00.97078.4 [degF] Zktomjmvkql7984-98-47 12:51:00.07549 [degF]Cvxyxycvtsv0631-92-31 12:52:00.000 96.2 [degF]Qiryzvhoifc5785-88-73 14:41:00.58364.5 [degF]BMI (%)2025-07-02 14:41:00.08726 kg/w4Wwskry7800-97-14 14:41:00.88247 [in_us]Mhmay3506-18-51 14:20:00.13337 /vegNmcsu9222-24-27 12:55:00.80180 /cwmEqsxa9384-91-97 16:01:00.86760 /oufEqres0208-15-56 12:33:00.86581 /hnfUwjez5542-71-21 14:10:00.09840 /hsvBymsg4491-43-82 12:30:00.93148 /ayfFruye7741-27-81 13:59:00.07099 /qasCrktw1426-84-15 13:44:00.58333 /emfGdbka6893-04-90 12:51:00.34511 /khhUsohq0288-94-35 12:52:00.94700 /ypkTpoif0887-79-22 14:41:00.77942 /minO2 Saturation (%)2025-07-21 14:20:00.20231 %O2 Saturation (%) 2025-07-17 12:55:00.35913 %O2 Saturation (%)2025-07-16 16:01:00.59369 %O2 Saturation (%)2025-07-16 12:33:00.75353 %O2 Saturation (%)2025-07-14 14:10:00.01808 %O2 Saturation (%)2025-07-11 12:30:00.15679 %O2 Saturation (%) 2025-07-09 13:59:00.17655 %O2 Saturation (%)2025-07-08 13:44:00.58692 %O2 Saturation (%)2025-07-08 12:51:00.77848 %O2 Saturation (%)2025-07-03 12:52:00.74724 %O2 Saturation (%)2025-07-02 14:41:00.36362 %Respirations 2025-07-21 14:20:00.81546 /kteIrnqgczupjab7088-78-71 12:55:00.22018 /min Qfbxbwwujcig1178-26-32 16:01:00.04557 /lnbPhqgrcooamjc2454-17-27 12:33:00.11006 /dpjEtrivnfhjzhs7818-97-65 14:10:00.20671 /jmwKvvaxwwjpomz6721-03-81 12:30:00.41227 /xqsCtacprlancqe9290-05-58 13:59:00.22163 /minRespirations 2025-07-08 13:44:00.27647 /ndwVqzqarrwscfi3747-97-03 12:51:00.45134 /min Blyvvutiyqfa1849-81-40 12:52:00.97168 /cxwQfnclakqkxpj3557-23-48 14:41:00.94471 /minWeight (lbs)2025-07-02 14:41:00.292727 [lb_av]Systolic Blood Pressure 2025-07-21 14:26:00.395295 mm[Hg]Systolic Blood Isvbfofx3362-27-63 16:01:00.000 182 mm[Hg]Systolic Blood Erhoulfa8682-25-27 12:33:00.023587 mm[Hg]Systolic Blood Mleqtwai6944-61-07 14:10:00.874100 mm[Hg]Systolic Blood Kvhxejzw6604-20-42 12:30:00.932440 mm[Hg]Systolic Blood Stccdazp6643-43-78 14:12:00.235066 mm[Hg] Systolic Blood Gkyzkrbv8234-19-29 13:44:00.726728 mm[Hg]Systolic Blood Pressure 2025-07-08 13:04:00.455216 mm[Hg]Systolic Blood Mglixzjc1315-09-27 12:51:00.000 168 mm[Hg]Systolic Blood Cqmhuirx1833-34-50 12:52:00.874156 mm[Hg]Systolic Blood Ezenvikx1565-55-90 14:41:00.317561 mm[Hg]Diastolic Blood Fqtyyprg6909-17-85 14:26:00.19690 mm[Hg]Diastolic Blood Qicyhlsd4959-37-17 16:01:00.56513 mm[Hg] Diastolic Blood Zzakhjwz2089-26-96 12:33:00.95647 mm[Hg]Diastolic Blood Pressure 2025-07-14 14:10:00.60109 mm[Hg]Diastolic Blood Nkdoafku0156-13-55 12:30:00.000 62 mm[Hg]Diastolic Blood Xeiztlmx4359-50-05 14:12:00.45925 mm[Hg]Diastolic Blood Jsatugnk5139-30-37 13:44:00.10891 mm[Hg]Diastolic Blood Hqcwggwx4057-69-25 13:04:00.71823 mm[Hg]Diastolic Blood Esowycko0849-20-56 12:51:00.30145 mm[Hg] Diastolic Blood Elfujtjb9930-19-32 12:52:00.02381 mm[Hg]Diastolic Blood Pressure 2025-07-02 14:41:00.84816 mm[Hg] Plan of Treatment Planned Activity Planned Date Details Comments Future Scheduled Test SKILLED NURSE TO PROVIDE INSTRUCTIONS REGARDING MEASURES TO CONTROL CONSTIPATION. [code = SKILLED NURSE TO PROVIDE INSTRUCTIONS REGARDING MEASURES TO CONTROL CONSTIPATION.]Future Scheduled TestALL CONSULTING/COVERING PHYSICIANS MAY SIGN/ISSUE ORDERS. [code = ALL CONSULTING/COVERING PHYSICIANS MAY SIGN/ISSUE ORDERS.]Future Scheduled TestSKILLED NURSE TO REVIEW MEDICATION PROFILE AND RECONCILE MEDICATIONS NEEDED. SKILLED NURSE MAY INSTRUCT AND REINFORCE MEDICATION TEACHING RELATED TO USE OF MEDICATIONS TO TREAT DISEASE PROCESSES. [ code = SKILLED NURSE TO REVIEW MEDICATION PROFILE AND RECONCILE MEDICATIONS NEEDED. SKILLED NURSE MAY INSTRUCT AND REINFORCE MEDICATION TEACHING RELATED TO USE OF MEDICATIONS TO TREAT DISEASE PROCESSES.]Future Scheduled TestSKILLED NURSE FOR MONITORING EFFECTIVENESS OF ANTICOAGULATION THERAPY REGIMEN AND SKILLED INSTRUCTION RELATED TO ANTICOAGULATION MANAGEMENT [code = SKILLED NURSE FOR MONITORING EFFECTIVENESS OF ANTICOAGULATION THERAPY REGIMEN AND SKILLED INSTRUCTION RELATED TO ANTICOAGULATION MANAGEMENT]Future Scheduled TestPHYSICAL THERAPIST TO EVALUATE/ASSESS AND DEVELOP PHYSICAL THERAPY PLAN OF CARE TO BE SIGNED BY THEPHYSICIAN. [code = PHYSICAL THERAPIST TO EVALUATE/ASSESS AND DEVELOP PHYSICAL THERAPY PLAN OF CARE TO BE SIGNED BY THE PHYSICIAN.]Future Scheduled TestOCCUPATIONAL THERAPIST TO EVALUATE/ASSESS AND DEVELOP OCCUPATIONAL THERAPY PLAN OF CARE TO BE SIGNED BY THE PHYSICIAN. [code = OCCUPATIONAL THERAPIST TO EVALUATE/ASSESS AND DEVELOP OCCUPATIONAL THERAPY PLAN OF CARE TO BE SIGNED BY THE PHYSICIAN.]Future Scheduled TestSKILLED NURSE TO EVALUATE AND DEVELOP PLAN OF CARE TO BE COUNTERSIGNED BY PHYSICIAN. SKILLED NURSE F IBROMYALGIA AND CO-MORBID CONDITIONS INCLUDING SPI N AL STENOSIS AND OTHER CONDITIONS THAT PRESENT THEMSELVES DURING THE COURSE OF THIS EPISODE TO IDENTIFY CHANGES AND INTERVENE TO MINIMIZE COMPLICATIONS. [code = SKILLED NURSE TO EVALUATE AND DEVELOP PLAN OF CARE TO BE COUNTERSIGNED BY PHYSICIAN. SKILLED NURSE FIBROMYALGIA AND CO-MORBID CONDITIONS INCLUDING SPI N AL STENOSIS AND OTHER CONDITIONS THAT PRESENT THEMSELVES DURING THE COURSE OF THIS EPISODE TO IDENTIFY CHANGES AND INTERVENE TO MINIMIZE COMPLICATIONS.]Future Scheduled Test SKILLED NURSE TO PROVIDE MONITORING FOR THE PRESENCE OF SKIN LESIONS ON THE LOWER EXTREMITIES AND TEACHING/REINFORCEMENT REGARDING PROPER DIABETIC FOOT CARE. [code = SKILLED NURSE TO PROVIDE MONITORING FOR THE PRESENCE OF SKIN LESIONS ON THE LOWER EXTREMITIES AND TEACHING/REINFORCEMENT REGARDING PROPER DIABETIC FOOT CARE.]Future Scheduled TestSKILLED NURSE TO PROVIDE AND INSTRUCT REGARDING FALL PREVENTION INTERVENTIONS. [code = SKILLED NURSE TO PROVIDE AND INSTRUCT REGARDING FALL PREVENTION INTERVENTIONS.]Future Scheduled TestSKILLED NURSE TO MONITOR PLAN FOR CURRENT TREATMENT OF DEPRESSION SUCH EFFECTS OF MEDICATION AND/OR NEED FOR REFERRAL FOR OTHER TREATMENT. [code = SKILLED NURSE TO MONITOR PLAN FOR CURRENT TREATMENT OF DEPRESSION SUCH EFFECTS OF MEDICATION AND/OR NEED FOR REFERRAL FOR OTHER TREATMENT.]Future Scheduled Test SKILLED NURSE TO PROVIDE/INSTRUCT REGARDING INTERVENTION(S) TO MONITOR AND MITIGATE PAIN. [code = SKILLED NURSE TO PROVIDE/INSTRUCT REGARDING INTERVENTION(S) TO MONITOR AND MITIGATE PAIN.]Future Scheduled TestSKILLED NURSE TO PROVIDE AND INSTRUCT REGARDING INTERVENTION(S) TO PREVENT PRESSURE ULCERS. [code =SKILLED NURSE TO PROVIDE AND INSTRUCT REGARDING INTERVENTION(S) TO PREVENT PRESSURE ULCERS.]Future Scheduled TestDISCHARGE HOME HEALTH SERVICES WHEN GOALS ARE MET OR SKILLED CARE NO LONGER REQUIRED. [code = DISCHARGE HOME HEALTH SERVICES WHEN GOALS ARE MET OR SKILLED CARE NO LONGER REQUIRED.]Future Scheduled TestPATIENT IS AT RISK FOR HOSPITALIZATION OR EMERGENCY DEPARTMENT USE DUE TO ABNORMAL LABS DECREASED RENAL FUNCTION. TEACH PATIENT/CAREGIVER TO ?CALL US FIRST? . INFORM ON WHO AND WHEN TO CALL FOR SYMPTOMS BASED ON ZONE TOOLS. INSTRUCT ON MITIGATION OF IDENTIFIED HOSPITAL OR EMERGENCY DEPARTME NT RISK FACTORS. [code = PATIENT IS AT RISK FOR HOSPITALIZATION OR EMERGENCY DEPARTMENT USE DUE TO ABNORMAL LABS DECREASED RENAL FUNCTION. TEACH PATIENT/CAREGIVER TO ?CALL US FIRST? . INFORMON WHO AND WHEN TO CALL FOR SYMPTOMS BASED ON ZONE TOOLS. INSTRUCT ON MITIGATION OF IDENTIFIED HOSPITAL OR EMERGENCY DEPARTMENT RISK FACTORS.]Future Scheduled TestSKILLED NURSE MAY PERFORM 2 PRN VISITS FOR ABNORMAL VITAL SIGNS AND 2 PRN VISITS FOR INCREASED EDEMA [code = SKILLED NURSE MAY PERFORM 2 PRN VISITS FOR ABNORMAL VITAL SIGNS AND 2 PRN VISITS FOR INCREASED EDEMA]Future Scheduled TestSKILLED NURSE FOR OASIS DATA COLLECTION/COMPREHENSIVE ASSESSMENT TO DETERMINE SKILLED NEED. THIS MAY INCLUDE RESUMPTION OF CARE ASSESSMENT (BÁRBARA) TO DETERMINE SKILLED NEED FOLLOWING INPATIENT DISCHARGE SHOULD PATIENT TRANSFER AND ADMIT TO AN INPATIENT FACILITY DURING CURRENT 60-DAY CERTIFICATION PERIOD. ADDITIONAL VISITS MAY BE REQUIRED FOR RECERT, FOLLOW UP, SIGNIFICANT CHANGE IN CONDITION (SCIC)AND DISCHARGE. HOME [facility] MAY PROVIDE CARE RECOMMENDATIONS NEEDED ON NEW,EXISTING OR CHANGED WOUND OR INTEGUMENTARY CONDITIONS. [code = SKILLED NURSE FOR OASIS DATA COLLECTION/COMPREHENSIVE ASSESSMENT TO DETERMINE SKILLED NEED. THIS MAY INCLUDE RESUMPTION OF CARE ASSESSMENT (BÁRBARA) TO DETERMINE SKILLED NEED FOLLOWING INPATIENT DISCHARGE SHOULD PATIENT TRANSFER AND ADMIT TO AN INPATIENT FACILITY DURING CURRENT 60-DAY CERTIFICATION PERIOD. ADDITIONAL VISITS MAY BE REQUIRED FOR RECERT, FOLLOW UP, SIGNIFICANT CHANGE IN CONDITION (SCIC) AND DISCHARGE. HOME [facility] MAY PROVIDE CARE RECOMMENDATIONS NEEDED ON NEW, EXISTING OR CHANGED WOUND OR INTEGUMENTARY CONDITIONS.]Future Scheduled TestOCCUPATIONAL THERAPIST OR SKILLED NURSE FOR OASIS DATA COLLECTION/COMPREHENSIVE ASSESSMENT TO DETERMINE SKILLED NEED. THIS MAY INCLUDE RESUMPTION OF CARE ASSESSMENT (BÁRBARA) TO DETERMINE SKILLED NEED FOL LOWING INPATIENT DISCHARGE SHOULD PATIENT TRANSFER AND ADMIT TO AN INPATIENT FACILITY DURING CURRENT 60-DAY CERTIFICATION PERIOD. ADDITIONAL VISITS MAY BE REQUIRED FOR RECERT, FOLLOW UP, SIGNIFICANT CHANGE IN CONDITION (SCIC) AND DISCHARGE. OCCUPATIONAL THERAPIST TO EVALUATE PATIENT FOR OT SERVICESAND DEVELOP PLAN OF CARE PLAN OF CARE TO BE SIGNED BY THE PHYSICIAN. OCCUPATIONAL THERAPIST TO PROVIDE INSTRUCTION/REINFORCEMENT ASSOCIATED WITH KNOWLEDGE DEFICITS INCLUDING WEAKNESS. OCCUPATIONAL THERAPY TO ESTABLISH/UPGRADE HOME EXERCISE PROGRAM AND PROVIDE THERAPEUTIC EXERCISES AND/OR SOFT TISSUE/JOINT MOBILIZATION DESIGNED TO RESTORE FUNCTIONAL STRENGTH AND ROM. OCCUPATIONAL THERAPY TO INSTRUC T IN SAFE TRANSFERS USING APPROPRIATE BODY MECHANICS AND EQUIPMENT. OCCUPATIONAL THERAPY TO EVALUATE FUNCTIONAL MOBILITY/AMBULATION AND PROVIDE TRAINING USING APPROPRIATE ASSISTIVE DEVICES TO ENSURE PATIENT SAFETY OCCUPATIONAL THERAPIST TO EDUCATE PATIENT / CAREGIVER ON SAFETY RECOMMENDATIONS FOR HOME ENVIRONMENT, TO REDUCE FALL RISK. OCCUPATIONAL THERAPIST TO PROVIDE PATIENT / CAREGIVER WITH ADL TRAINING TO INCREASE INDEPENDENCE. OCCUPATIONAL THERAPIST TO PROVIDE PATIENT / CAREGIVER WITH IADL TRAINING TO INCREASE INDEPENDENCE. OCCUPATIONAL THERAPY TO PROVIDE INSTRUCTION IN ENERGY CONSERVATION TECHNIQUES DESIGNED TO MAXIMIZE PATIENT'S TOLERANCE DURING ADL'S/IADL'S. ALL CONSULTING/COVERING PHYSICIANS MAY SIGN AND ISSUE ORDERS. OCCUPATIONAL THERAPY TO PROVIDE BALANCE TRAINING TO REDUCE FALLRISK DURING FUNCTIONAL ACTIVITIES. MONITORING EFFECTIVENESS OF ANTICOAGULATION THERAPY REGIMEN AND SKILLED INSTRUCTION RELATED TO ANTICOAGULATION MANAGEMENT OCCUPATIONAL THERAPIST TO PROVIDE AND INSTRUCT REGARDING FALL PREVENTION INTERVENTIONS. OCCUPATIONAL THERAPIST TO MONITOR PLAN FOR CURRENT TREATMENT OF DEPRESSION SUCH EFFECTS OF MEDICATION AND/OR NEED FOR REFERRAL FOR OTHER TREATMENT OCCUPATIONAL THERAPIST TO PROVIDE/INSTRUCT REGARDING INTERVENTION(S) TO MONITOR AND MITIGATE PAIN. OCCUPATIONAL THERAPIST TO PROVIDE AND INSTRUCT REGARDING INTERVENTION(S) TO PREVENT PRESSURE ULCERS. DISCHARGE HOME HEALTH SERVICES WHEN GOALS ARE MET OR SKILLED CARE NO LONGER REQUIRED. PATIENT IS AT RISKFOR HOSPITALIZATION OR EMERGENCY DEPARTMENT USE DUE TO HTN, EDEMA, FALLS. TEACH PATIENT/CAREGIVER TO ?CALL US FIRST? . INFORM ON WHO AND WHEN TO CALL FOR SYMPTOMS BASED ON ZONE TOOLS. INSTRUCT ON MITIGATION OF IDENTIFIED HOSPITAL OR EMERGENCY DEPARTMENT RISK FACTORS. OCCUPATIONAL THERAPISTTO REVIEW MEDICATION PROFILE AND RECONCILE MEDICATIONS NEEDED. OCCUPATIONAL THERAPIST MAY INSTRUCT AND REINFORCE MEDICATION TEACHING RELATED TO USE OF MEDICATIONS TO TREAT DISEASE PROCESSES. OCCUPATIONAL THERAPIST TO PROVIDE INSTRUCTIONS REGARDING MEASURES TO CONTROL CONSTIPATION. OCCUPATIONAL THERAPIST TO PROVIDE MONITORING FOR THE PRESENCE OF SKIN LESIONS ON THE LOWER EXTREMITIES AND TEACHING/REINFORCEMENT REGARDING PROPER DIABETIC FOOT CARE. [code = OCCUPATIONAL THERAPIST OR SKILLED NURSEFOR OASIS DATA COLLECTION/COMPREHENSIVE ASSESSMENT TO DETERMINE SKILLED NEED. THIS MAY INCLUDE RESUMPTION OF CARE ASSESSMENT (BÁRBARA) TO DETERMINE SKILLED NEED FOLLOWING INPATIENT DISCHARGE SHOULD PATIENT TRANSFER AND ADMIT TO AN INPATIENT FACILITY DURING CURRENT 60-DAY CERTIFICATION PERIOD. ADDITIONAL VISITS MAY BE REQUIRED FOR RECERT, FOLLOW UP, SIGNIFICANT CHANGE IN CONDITION (SCIC) AND DISCHARGE. OCCUPATIONAL THERAPIST TO EVALUATE PATIENT FOR OT SERVICES AND DEVELOP PLAN OF CARE PLAN OF CARE TO BE SIGNED BY THE PHYSICIAN. OCCUPATIONAL THERAPIST TO PROVIDE INSTRUCTION/REINFORCEMENT ASSOCIATEDWITH KNOWLEDGE DEFICITS INCLUDING WEAKNESS. OCCUPATIONAL THERAPY TO ESTABLISH/UPGRADE HOME EXERCISEPROGRAM AND PROVIDE THERAPEUTIC EXERCISES AND/OR SOFT TISSUE/JOINT MOBILIZATION DESIGNED TO RESTOREFUNCTIONAL STRENGTH AND ROM. OCCUPATIONAL THERAPY TO INSTRUCT IN SAFE TRANSFERS USING APPROPRIATE BODY MECHANICS AND EQUIPMENT. OCCUPATIONAL THERAPY TO EVALUATE FUNCTIONAL MOBILITY/AMBULATION AND PROVIDE TRAINING USING APPROPRIATE ASSISTIVE DEVICES TO ENSURE PATIENT SAFETY OCCUPATIONAL THERAPIST TO EDUCATE PATIENT / CAREGIVER ON SAFETY RECOMMENDATIONS FOR HOME ENVIRONMENT, TO REDUCE FALL RISK. OCCUPATIONAL THERAPIST TO PROVIDE PATIENT / CAREGIVER WITH ADL TRAINING TO INCREASE INDEPENDENCE. OCCUPATIONAL THERAPIST TO PROVIDE PATIENT / CAREGIVER WITH IADL TRAINING TO INCREASE INDEPENDENCE. OCCUPATIONAL THERAPY TO PROVIDE INSTRUCTION IN ENERGY CONSERVATION TECHNIQUES DESIGNED TO MAXIMIZE PATIENT'S TOLERANCE DURING ADL'S/IADL'S. ALL CONSULTING/COVERING PHYSICIANS MAY SIGN AND ISSUE ORDERS. OCCUPATIONAL THERAPY TO PROVIDE BALANCE TRAINING TO REDUCE FALL RISK DURING FUNCTIONAL ACTIVITIES. MONITORING EFFECTIVENESS OF ANTICOAGULATION THERAPY REGIMEN AND SKILLED INSTRUCTION RELATED TO ANTICOAGUL ATION MANAGEMENT OCCUPATIONAL THERAPIST TO PROVIDE AND INSTRUCT REGARDING FALL PREVENTION INTERVENTIONS. OCCUPATIONAL THERAPIST TO MONITOR PLAN FOR CURRENT TREATMENT OF DEPRESSION SUCH EFFECTS OF MEDICATION AND/OR NEED FOR REFERRAL FOR OTHER TREATMENT OCCUPATIONAL THERAPIST TO PROVIDE/INSTRUCT REGARDING INTERVENTION(S) TO MONITOR AND MITIGATE PAIN. OCCUPATIONAL THERAPIST TO PROVIDE AND INSTRUCT REGARDING INTERVENTION(S) TO PREVENT PRESSURE ULCERS. DISCHARGE HOME HEALTH SERVICES WHEN GOALS ARE MET OR SKILLED CARE NO LONGER REQUIRED. PATIENT IS AT RISK FOR HOSPITALIZATION OR EMERGENCY DEPARTMENT USE DUE TO HTN, EDEMA, FALLS. TEACH PATIENT/CAREGIVER TO ?CALL US FIRST? . INFORM ON WH O AND WHEN TO CALL FOR SYMPTOMS BASED ON ZONE TOOLS. INSTRUCT ON MITIGATION OF IDENTIFIED HOSPITAL OR EMERGENCY DEPARTMENT RISK FACTORS. OCCUPATIONAL THERAPIST TO REVIEW MEDICATION PROFILE AND RECONCILE MEDICATIONS NEEDED. OCCUPATIONAL THERAPIST MAY INSTRUCT AND REINFORCE MEDICATION TEACHING RELATED TO USE OF MEDICATIONS TO TREAT DISEASE PROCESSES. OCCUPATIONAL THERAPIST TO PROVIDE INSTRUCTIONS REGARDING MEASURES TO CONTROL CONSTIPATION. OCCUPATIONAL THERAPIST TO PROVIDE MONITORING FOR THE PRESENCE OF SKIN LESIONS ON THE LOWER EXTREMITIES AND TEACHING/REINFORCEMENT REGARDING PROPER DIABETIC FOOT CARE.]Future Scheduled TestPT TO OBSERVE AND ASSESS CARDIOVASCULAR SYSTEM TO IDENTFY CHANGES AND INTERVENE TO MINIMIZE COMPLICATIONS. PT TO PROVIDE TEACHING RELATED TO ALTERED CARDIOVASCULAR STATUS INCLUDING PATHOPHYSIOLOGY AND PERMITTED ACTIVITIES RELATED TO CABG. MAY PERFORM O2 SATURATION LEVELS PRN FOR SIGNS AND/OR SYMPTOMS OF POSSIBLE RESPIRATORY COMPLICATIONS. PHYSICAL THERAPIST TO PROVIDE SKILLED TEACHING/REINFORCEMENT OF MANAGEMENT OF HYPERTENSION. PHYSICAL THERAPIST FOR INSTRUCTIONS/REINFORCEMENT OF DIABETIC CARETO INCLUDE MANAGEMENT OF BLOOD SUGARS DURING ACTIVITY AND DIABETIC FOOT CARE. PHYSICAL THERAPIST TOEVALUATE/ASSESS AND DEVELOP PHYSICAL THERAPY PLAN OF CARE TO BE SIGNED BY THE PHYSICIAN. PHYSICAL TH ERAPY TO ESTABLISH/UPGRADE HOME EXERCISE PROGRAM AND PROVIDE THERAPEUTIC EXERCISES AND SOFT TISSUE/JOINT MOBILIZATION DESIGNED TO RESTORE FUNCTIONAL STRENGTH AND ROM. PHYSICAL THERAPY TO PROVIDE TECHNIQUES DESIGNED TO IMPROVE BED MOBILITY. PHYSICAL THERAPY TO INSTRUCT IN SAFE TRANSFERS WITH APPROPRIATE BODY MECHANICS AND EQUIPMENT. PHYSICAL THERAPY TO EVALUATE GAIT AND PROVIDE GAIT TRAINING USINGAPPROPRIATE ASSISTIVE DEVICE TO ENSURE PATIENT SAFETY. PHYSICAL THERAPIST TO PROVIDE EDUCATION TO PATIENT/CAREGIVER RELATED TO SAFETY IN THE HOME ENVIRONMENT. MONITORING EFFECTIVENESS OF ANTICOAGULATION THERAPY REGIMEN AND SKILLED INSTRUCTION RELATED TO ANTICOAGULATION MANAGEMENT PHYSICAL THERAPIST TO PROVIDE AND INSTRUCT REGARDING INTERVENTION(S) TO PREVENT PRESSURE ULCERS. DISCHARGE [facility] WHEN GOALS ARE MET OR SKILLED CARE NO LONGER REQUIRED. PATIENT IS AT RISK FOR HOSPITALIZATION OR EMERGENCY DEPARTMENT USE DUE TO CAD. TEACH PATIENT/CAREGIVER TO ?CALL US FIRST? . INFORM ON WHO AND WHEN TO CALL FOR SYMPTOMS BASED ON ZONE TOOLS. INSTRUCT ON MITIGATION OF IDENTIFIED HOSPITAL OR EMERGENCY DEPARTMENT RISK FACTORS. PHYSICAL THERAPIST TO PROVIDE INSTRUCTIONS REGARDING MEASURES TO CONTROL CONSTIPATION. ALL CONSULTING/COVERING PHYSICIANS MAY SIGN AND ISSUE ORDERS. PHYSICAL THERAPIST TO PROVIDE AND INSTRUCT REGARDING FALL PREVENTION INTERVENTIONS. PHYSICAL THERAPIST TO MONITOR PLAN FOR CURRENT TREATMENT OF DEPRESSION SUCH EFFECTS OF MEDICATION AND/OR NEED FOR REFERRAL FOR OTHER TREATMENT. PHYSICAL THERAPIST TO PROVIDE/INSTRUCT REGARDING INTERVENTION(S) TO MONITOR AND MITIGATE PAIN. PHYSICAL THERAPIST TO REVIEW MEDICATION PROFILE AND RECONCILE MEDICATIONS N EEDED. PHYSICAL THERAPIST MAY INSTRUCT AND REINFORCE MEDICATION TEACHING RELATED TO USE OF MEDICATIONS TO TREAT DISEASE PROCESSES. PHYSICAL THERAPY TO PROVIDE MONITORING FOR THE PRESENCE OF SKIN LESIONS ON THE LOWER EXTREMITIES AND TEACHING/REINFORCEMENT REGARDING PROPER DIABETIC FOOT CARE. [code =PT TO OBSERVE AND ASSESS CARDIOVASCULAR SYSTEM TO IDENTFY CHANGES AND INTERVENE TO MINIMIZE COMPLICATIONS. PT TO PROVIDE TEACHING RELATED TO ALTERED CARDIOVASCULAR STATUS INCLUDING PATHOPHYSIOLOGY AND PERMITTED ACTIVITIES RELATED TO CABG. MAY PERFORM O2 SATURATION LEVELS PRN FOR SIGNS AND/OR SYMPTOMS OF POSSIBLE RESPIRATORY COMPLICATIONS. PHYSICAL THERAPIST TO PROVIDE SKILLED TEACHING/REINFORCEMENT OF MANAGEMENT OF HYPERTENSION. PHYSICAL THERAPIST FOR INSTRUCTIONS/REINFORCEMENT OF DIABETIC CARETO INCLUDE MANAGEMENT OF BLOOD SUGARS DURING ACTIVITY AND DIABETIC FOOT CARE. PHYSICAL THERAPIST TOEVALUATE/ASSESS AND DEVELOP PHYSICAL THERAPY PLAN OF CARE TO BE SIGNED BY THE PHYSICIAN. PHYSICAL THERAPY TO ESTABLISH/UPGRADE HOME EXERCISE PROGRAM AND PROVIDE THERAPEUTIC EXERCISES AND SOFT TISSUE/JOINT MOBILIZATION DESIGNED TO RESTORE FUNCTIONAL STRENGTH AND ROM. PHYSICAL THERAPY TO PROVIDE TECHNIQUES DESIGNED TO IMPROVE BED MOBILITY. PHYSICAL THERAPY TO INSTRUCT IN SAFE TRANSFERS WITH APPROPRIATE BODY MECHANICS AND EQUIPMENT. PHYSICAL THERAPY TO EVALUATE GAIT AND PROVIDE GAIT TRAINING USING APPROPRIATE ASSISTIVE DEVICE TO ENSURE PATIENT SAFETY. PHYSICAL THERAPIST TO PROVIDE EDUCATION TO PATIENT/CAREGIVER RELATED TO SAFETY IN THE HOME ENVIRONMENT. MONITORING EFFECTIVENESS OF ANTICOAGULATION THERAPY REGIMEN AND SKILLED INSTRUCTION RELATED TO ANTICOAGULATION MANAGEMENT PHYSICAL THERAPISTTO PROVIDE AND INSTRUCT REGARDING INTERVENTION(S) TO PREVENT PRESSURE ULCERS. DISCHARGE [facility] WHEN GOALS ARE MET OR SKILLED CARE NO LONGER REQUIRED. PATIENT IS AT RISK FOR HOSPITALIZATION OR EMERGENCY DEPARTMENT USE DUE TO CAD. TEACH PATIENT/CAREGIVER TO ?CALL US FIRST? . INFORM ON WHO AND WHEN TO CALL FOR SYMPTOMS BASED ON ZONE TOOLS. INSTRUCT ON MITIGATION OF IDENTIFIED HOSPITAL OR EMERGENCY DEPARTMENT RISK FACTORS. PHYSICAL THERAPIST TO PROVIDE INSTRUCTIONS REGARDINGMEASURES TO CONTROL CONSTIPATION. ALL CONSULTING/COVERING PHYSICIANS MAY SIGN AND ISSUE ORDERS. PHYSICAL THERAPIST TO PROVIDE AND INSTRUCT REGARDING FALL PREVENTION INTERVENTIONS. PHYSICAL THERAPIST TO MONITOR PLAN FOR CURRENT TREATMENT OF DEPRESSION SUCH EFFECTS OF MEDICATION AND/OR NEED FOR REFERRAL FOR OTHER TREATMENT. PHYSICAL THERAPIST TO PROVIDE/INSTRUCT REGARDING INTERVENTION(S) TO MONITOR AND MITIGATE PAIN. PHYSICAL THERAPIST TO REVIEW MEDICATION PROFILE AND RECONCILE MEDICATIONS N EEDED. PHYSICAL THERAPIST MAY INSTRUCT AND REINFORCE MEDICATION TEACHING RELATED TO USE OF MEDICATIONS TO TREAT DISEASE PROCESSES. PHYSICAL THERAPY TO PROVIDE MONITORING FOR THE PRESENCE OF SKIN LESIONS ON THE LOWER EXTREMITIES AND TEACHING/REINFORCEMENT REGARDING PROPER DIABETIC FOOT CARE.]GoalPatient Goal - TO WALK BETTERGoalProvider Goal - PATIENT/CAREGIVER WILL VERBALIZE BOWEL PROGRAM STEPS TO PREVENT CONSTIPATION COMPLICATIONS BY 07/19/2025 , AND PATIENT WILL HAVE A REGULAR BM EVERY DAYGoalProvider Goal -GoalProvider Goal - PATIENT WILL DEMONSTRATE COMPLIANCE WITH MEDICATIONS PRESCRIBED. PATIENT/CAREGIVER WILL VERBALIZE/DEMONSTRATE UNDERSTANDING OF MEDICATION SCHEDULE, PURPOSE, SIDE EFFECTS AND AND ANY SPECIAL PRECAUTIONS RELATED TO MEDICATION REGIMEN BY 07/29/25GoalProvider Goal - INEFFECTIVE ANTICOAGULATION THERAPY, EVIDENCED BY SIGNS/SYMPTOMS OF EXCESSIVE BLEEDING, WILL BE IDENTIFIED AND PROMPTLY REPORTED TO THE PHYSICIAN. PATIENT/CAREGIVER WILL VERBALIZE/DEMONSTRATE UNDERSTANDING OF MEASURES TO MAINTAIN EFFECTIVE ANTICOAGULATION THERAPY BY 07/31/2025GoalProvider Goal - PHYSICAL THERAPIST TO EVALUATE/ASSESS AND DEVELOP PHYSICAL THERAPY PLAN OF CARE TO BE SIGNED BY THE PHYSICIAN.GoalProvider Goal - OCCUPATIONAL THERAPY PLAN OF CARE WILL BE ORDERED BY PHYSICIAN AND PROVIDED BY OCCUPATIONAL THERAPY. ALL GOALS TO BE MET BY END OF CURRENTLY APPROVED PLAN OF CARE.GoalProvider Goal - A PLAN OF CARE WILL BE ESTABLISHED THAT MEETS THE PATIENT'S NURSING NEEDS AND COUNTERSIGNED BY PHYSICIAN.GoalProvider Goal - CHANGES IN PATIENT CO-MORBID STATUS WILL BE PROMPTLY IDENTIFIED AND REPORTED TO THEPHYSICIAN. PATIENT/CAREGIVER VERBALIZE/DEMONSTRATE ABILITY TO PROPERLY MANAGE DIABETIC FOOT CARE BY07/31/2025GoalProvider Goal - CHANGES IN PATIENT CO-MORBID STATUS WILL BE PROMPTLY IDENTIFIED AND REPORTED TO THEPHYSICIAN. PATIENT/CAREGIVER VERBALIZE/DEMONSTRATE MEASURES TO PREVENT FALLS BY 07/28/25GoalProvider Goal - CHANGES IN PATIENT CO-MORBID STATUS WILL BE PROMPTLY IDENTIFIED AND REPORTED TO THEPHYSICIAN. PATIENT/CAREGIVER VERBALIZE/DEMONSTRATE ABILITY TO PROPERLY MANAGE DEPRESSION BY 07/28/2025GoalProvider Goal - CHANGES IN PATIENT CO-MORBID STATUS WILL BE PROMPTLY IDENTIFIED AND REPORTED TO THEPHYSICIAN. PATIENT/CAREGIVER VERBALIZE/DEMONSTRATE ABILITY TO PROPERLY MANAGE PAIN BY 07/19/2025GoalProvider Goal - CHANGES IN PATIENT CO-MORBID STATUS WILL BE PROMPTLY IDENTIFIED AND REPORTED TO THEPHYSICIAN. PATIENT/CAREGIVER VERBALIZE/DEMONSTRATE MEASURES TO PREVENT PRESSURE ULCERS BY 07/31/2025GoalProvider Goal -GoalProvider Goal - PATIENT/CAREGIVER WILL VERBALIZE/DEMONSTRATE UNDERSTANDING OF SYMPTOM MANAGEMENT, RESOURCE UTILIZATION, AND MEDICATION MANAGEMENT TO REDUCE UNPLANNED HOSPITAL OR EMERGENCY DEPARTMENT VISITS BY 07/30/25GoalProvider Goal -Goal Provider Goal -GoalProvider Goal - OCCUPATIONAL THERAPY EVALUATION WILL BE COMPLETED. PLAN OF CARE WILL BE ORDERED BY PHYSICIAN AND PROVIDED BY OCCUPATIONAL THERAPIST. ALL GOALS TO BE MET BY END OF CURRENTLY APPROVED PLAN OF CARE. PATIENT/CAREGIVER WILL VERBALIZE UNDERSTANDING OF SKILLED INSTRUCTIONS BY 08/02/25. PATIENT WILL DEMONSTRATE IMPROVED FUNCTION IN RESPONSE TO BUE EXERCISE(S) AND/OR MANUAL THERAPY TECHNIQUE(S), EVIDENCED BY INCREASED INDEPENDENCE IN ACTIVITIES OF DAILY LIVING BY 08/30/25. PATIENT/CAREGIVER WILL DEMONSTRATE SAFE TRANSFERS USING APPROPRIATE BODY MECHANICS AND APPROPRIATE EQUIPMENT (WALKER/CANE, BATHROOM DME) BY 08/23/25. PATIENT WILL DEMONSTRATE USE OF SAFETY PRECAUTIONS AND IMPROVED FUNCTIONAL MOBILITY/AMBULATION WITH USE OF ASSISTIVE DEVICE NEEDED TO MINIMIZE RISK OF INJURY BY 08/23/25. PATIENT / CAREGIVER TO DEMONSTRATE INCREASED SAFETY IN HOME ENVIRONMENT EVIDENCED BY DE CREASED FALL RISK BY 08/02/25. PATIENT WILL DEMONSTRATE INCREASED INDEPENDENCE IN ACTIVITIES OF DAILY LIVING BY 08/30/25. PATIENT WILL DEMONSTRATE INCREASED INDEPENDENCE IN IADL'S BY 08/30/25. PATIENT / CAREGIVER TO DEMONSTRATE UNDERSTANDING OF AND COMPLIANCE WITH ENERGY CONSERVATION MEASURES, EVIDENCED BY INCREASED TOLERANCE DURING ADL'S/IADL'S BY 08/02/25. ADDITIONAL ORDERS WILL BE RECEIVED FROM ALTERNATE PHYSICIAN IN A TIMELY MANNER. PATIENT / CAREGIVER TO DEMONSTRATE DECREASED FALL RISK DURING FUNCTIONAL ACTIVITIES BY 08/30/25. INEFFECTIVE ANTICOAGULATION THERAPY, EVIDENCED BY PT/INR OUTSIDE THERAPEUTIC PARAMETERS SET BY PHYSICIAN OR SIGNS/SYMPTOMS OF EXCESSIVE BLEEDING, WILL BE ID ENTIFIED AND PROMPTLY REPORTED TO THE PHYSICIAN. PATIENT/CAREGIVER WILL VERBALIZE/DEMONSTRATE UNDERSTANDING OF MEASURES TO MAINTAIN EFFECTIVE ANTICOAGULATION THERAPY BY 08/02/25. CHANGES IN PATIENT CO-MORBID STATUS WILL BE PROMPTLY IDENTIFIED AND REPORTED TO THE PHYSICIAN. PATIENT/CAREGIVER VERBALIZ E/DEMONSTRATE MEASURES TO PREVENT FALLS BY 08/02/25. CHANGES IN PATIENT CO- MORBID STATUS WILL BE PROMPTLY IDENTIFIED AND REPORTED TO THE PHYSICIAN. PATIENT/CAREGIVER VERBALIZE/DEMONSTRATE ABILITY TO PROPERLY MANAGE DEPRESSION BY 08/02/25. CHANGES IN PATIENT CO-MORBID STATUS WILL BE PROMPTLY IDENTIFIED AND REPORTED TO THE PHYSICIAN. PATIENT/CAREGIVER VERBALIZE/DEMONSTRATE ABILITY TO PROPERLY MANAGE PAIN BY 08/02/25. CHANGES IN PATIENT CO-MORBID STATUS WILL BE PROMPTLY IDENTIFIED AND REPORTED TO THE PHYSICIAN. PATIENT/CAREGIVER VERBALIZE/DEMONSTRATE MEASURES TO PREVENT PRESSURE ULCERS BY 08/02/25. PATIENT/CAREGIVER WILL VERBALIZE/DEMONSTRATE UNDERSTANDING OF SYMPTOM MANAGEMENT, RESOURCE UTILIZATION, AND MEDICATION MANAGEMENT TO REDUCE UNPLANNED HOSPITAL OR EMERGENCY DEPARTMENT VISITS BY 08/02/25. PATIENT WILL DEMONSTRATE COMPLIANCE WITH MEDICATIONS PRESCRIBED. PATIENT/CAREGIVER WILL REKHA BALIZE/DEMONSTRATE UNDERSTANDING OF MEDICATION SCHEDULE, PURPOSE, SIDE EFFECTS, AND ANY SPECIAL PRECAUTIONS RELATED TO MEDICATION REGIMEN BY 08/02/25. PATIENT/CAREGIVER WILL VERBALIZE BOWEL PROGRAM STEPS TO PREVENT CONSTIPATION COMPLICATIONS BY 07/19/2025. PATIENT WILL HAVE A REGULAR BM EVERY DAYGoalProvider Goal - CARDIOVASCULAR EXACERBATIONS WILL BE IDENTIFIED PROMPTLY AND INTERVENTIONS INITIATED TO MINIMIZE RISKS.PATIENT/CAREGIVER WILL VERBALIZE/DEMONSTRATE AN ABILITY TO MANAGE CARDIOVASCULARDISEASE EVIDENCED BY NO UNPLANNED HOSPITALIZATIONS BY 07/12/25. ABNORMAL O2 SATURATION LEVELS WILL BE REPORTED TO PHYSICIAN. PATIENT/CAREGIVER VERBALIZE/DEMONSTRATE ABILITY TO MANAGE HYPERTENSION EVIDENCED BY BLOOD PRESSURE READINGS CONSISTENTLY WITHIN PHYSICIAN APPROVED PARAMETERS BY 07/12/25. PATIENT/CAREGIVER WILL VERBALIZE/DEMONSTRATE KNOWLEDGE OF MANAGEMENT OF DIABETES EVIDENCED BY D ECREASED SYMPTOMS, STABILIZATION OF BLOOD GLUCOSE WITHIN PARAMETERS SET BY PHYSICIAN AND NO UNPLANNED HOSPITALIZATIONS BY 07/12/25. A PHYSICAL THERAPY PLAN OF CARE WILL BE ORDERED BY PHYSICIAN AND PROVIDED BY PHYSICAL THERAPY. ALL GOALS TO BE MET BY END OF CURRENTLY APPROVED PLAN OF CARE. PATIENT WILL DEMONSTRATE IMPROVED FUNCTION IN RESPONSE TO SPECIFIC EXERCISE(S), EVIDENCED BY INCREASED INDEPENDENCE IN ACTIVITIES OF DAILY LIVING BY 07/12/25 . PATIENT WILL DEMONSTRATE IMPROVED BED MOBILITY EVIDENCED BY ABILITY TO CHANGE POSITION INDEPENDENTLY BY 07/12/25. PATIENT/CAREGIVER WILL DEMONSTRATE SAFE TRANSFERS USING APPROPRIATE BODY MECHANICS AND APPROPRIATE EQUIPMENT BY 07/12/25. PATIENT WILL DEMONSTRATE SAFE GAIT TECHNIQUE WITH RW, NEEDED TO IMPROVE FUNCTIONAL MOBILITY AND MINIMIZE RISK OF INJURY BY 07/12/25. PATIENT/CAREGIVER WILL DEMONSTRATE ADEQUATE KNOWLEDGE OF PROVIDING A SAFE HOME SETTING WITHOUT ENVIRONMENTAL HAZARDS BY 07/12/25. INEFFECTIVE ANTICOAGULATION THERAPY, E VIDENCED BY PT/INR OUTSIDE THERAPEUTIC PARAMETERS SET BY PHYSICIAN OR SIGNS/SYMPTOMS OF EXCESSIVE BLEEDING, WILL BE IDENTIFIED AND PROMPTLY REPORTED TO THE PHYSICIAN. PATIENT/CAREGIVER WILL VERBALIZE/DEMONSTRATE UNDERSTANDING OF MEASURES TO MAINTAIN EFFECTIVE ANTICOAGULATION THERAPY BY 07/07/25. CHANGES IN PATIENT CO-MORBID STATUS WILL BE PROMPTLY IDENTIFIED AND REPORTED TO THE PHYSICIAN. PATIENT/CAREGIVER VERBALIZE/DEMONSTRATE MEASURES TO PREVENT PRESSURE ULCERS BY 07/07/25. PATIENT/CAREGIVER WILL VERBALIZE/DEMONSTRATE UNDERSTANDING OF SYMPTOM MANAGEMENT, RESOURCE UTILIZATION, AND MEDICATIONMANAGEMENT TO REDUCE UNPLANNED HOSPITAL OR EMERGENCY DEPARTMENT VISITS BY 07/07/25. PATIENT/CAREGIVER WILL VERBALIZE BOWEL PROGRAM STEPS TO PREVENT CONSTIPATION COMPLICATIONS BY 07/18/2025. PATIENT WILL HAVE A REGULAR BM EVERY DAY ADDITIONAL ORDERS WILL BE RECEIVED FROM ALTERNATE PHYSICIAN IN A TIMELY MANNER. CHANGES IN PATIENT CO- MORBID STATUS WILL BE PROMPTLY IDENTIFIED AND REPORTED TO THE PHYSICIAN. PATIENT/CAREGIVER VERBALIZE/DEMONSTRATE MEASURES TO PREVENT FALLS BY 07/19/2025 CHANGES IN PATIENT CO-MORBID STATUS WILL BE PROMPTLY IDENTIFIED AND REPORTED TO THE PHYSICIAN. PATIENT/CAREGIVER VERBALIZE/DEMONSTRATE ABILITY TO PROPERLY MANAGE DEPRESSION BY 07/28/2025 CHANGES IN PATIENT CO-MORBID STATUS WILL BE PROMPTLY IDENTIFIED AND REPORTED TO THE PHYSICIAN. PATIENT/CAREGIVER VERBALIZE/DEMONSTRATE ABILITY TO PROPERLY MANAGE PAIN BY07/19/2025 PATIENT WILL DEMONSTRATE COMPLIANCE WITH MEDICATIONS PRESCRIBED. PATIENT/CAREGIVER WILL VERBALIZE/DEMONSTRATE UNDERSTANDING OF MEDICATION SCHEDULE, PURPOSE, SIDE EFFECTS, AND ANY SPECIAL PRECAUTIONS RELATED TO MEDICATION REGIMEN BY07/31/2025 Progress Notes Progress Notes <paragraph>[Visit Date: 2024 by LOUISA WAGNER PTA]:</paragraph><paragraph>ROUTINE VISIT COMPLETED WITH GOOD TOLERANCE TO TX SESSION </paragraph><paragraph></paragraph><paragraph>PATIENT REPORTS NO NEW OR WORSENING SX STATES THAT SHE IS COMPLIANT WITH HEP NO CONCERNS AT THIS TIME, SLEPT IN BED LAST NIGHT MORE SORE TODAY RESULT,PATIENT AMBULATING [id number] USE OF SBA/CGA AND ASSISTED DEVICE, VC TO IMPROVE SEQUENCING OF ASSISTED DEVICE AND PROXIMITY TO IMPROVE STABILITY AND SAFETY, VC FOR STEP HEGHT AND LENGTH TO ENSURE GOOD LE CLEARANCE AND DECREASE TRIPPING WITH GOOD FOLLOW C/O FATIGUE IN LE AND MIN SOB REQUIRING RESST FOLLOWING EACH BOUT. AMBULATING ONE SET BUE SUPPORT.PT INSTRUCTED IN SEATED THEREX TO IMPROVE LE STRENGTH AND ENDURANCE COMPLETING EXERCISES LAQ, MARCHES, HIP ABD, HIP ADD, HR AND TR VC FOR PROPER TECHNIQUE TO LIMIT COMPENSATORY MECHANICS TO ENSURE MAX STRENGTH GAINS. PATIENT INSTRUCTED IN STANDING EXERCISES TO IMPROVE LE STRENGTH AND BALANCE COMPLETING STANDING HIP ABD, CALF RAISES, MARCHES, HS CURLS AND MINI SQUATS WITH B UE SUPPORT FOR STABILITY VC FOR ECCENTRIC CONTROL AND USING FULL ROM TO TOLERANCE. 20X 1 SET.</paragraph><paragraph></paragraph><paragraph>NO CHANGES IN MEDICATION, INSURANCE OR FALLS TO REPORTS, CONTINUE TO PROGRESS BLE THEREX, GAIT, TRANSFERS, BALANCE AND ACTIVITY TOLERANCE</paragraph> Encounters Start Date/Time End Date/Time Encounter Type Admission Type Attending Clinicians Care Facility Care Department Encounter ID Discharge Date Discharge Status Discharge Condition Discharge Reason Percent Goals Met 2025-07-02 00:00:00 2025-08-30 00:00:00 Outpatient [facility] [id number]
== END 2025-07-22 17:49 | disposition home or self-care (01) ==
LOC: LAB 17:48
PROVIDERS: PCP Internal Medicine; Visit Provider Internal Medicine Nephrology
DX: E87.6 Hypokalemia (principal); E83.51 Hypocalcemia; E53.8 Deficiency of other specified B group vitamins; E83.42 Hypomagnesemia
CPT/HCPCS: 36415; 80069

== ENCOUNTER 2025-08-27 12:39 | Outpatient (REF) | payer MEDICARE, SELFPAY ==
--- OUTSIDE RECORDS SUMMARY | 2025-08-27 12:46 | XMS_ITS | CCD ---
Author Organization [facility] Care Team Providers Care Digestion Operator Name Role Phone DESIRAE, SHAKA H. [...] Primary Care Unavailable JOHN LUTHER Attending Unavailable JONH LUTHER Admitting Unavailable DR JACK VOGT Primary Care Unavailable DR HENRY WALL V Consulting Unavailable ZHOU, JOHN Consulting Unavailable JOHN LUTHER Attending Unavailable CHANDAN LUTHERA Admitting Unavailable JOHN LUTHRE Consulting Unavailable DR JACK VOGT Primary Care [...] Care Provider Sukumar BEAULIEU, Elsy Attending Provider [phone] [place] TELLO, Sohail Willson Emergency Provider Rajiv Trejo MD Admit Provider Rajiv Trejo MD Attending Provider Nick Antonio MD Other Provider Kana Vazquez MD Other Provider Judy Espinosa MD Other Provider Estrella Velásquez MD Other Provider Andrew Arrington MD Attending Provider [phone] Andrew Arrington MD Other Provider Estefania Yoder APRN Other Provider Keith Koehler DO Other Provider Pilo Harry MD Other Provider [phone] Tony Monterroso Attending Unavailable Rajiv Trejo Admitting [...] Chantelle Shah Unavailable Donavan CAZARES, Valerie Unavailable Jakc Vogt II Primary Care Provider Sukumar BEAULIEU, Elsy Attending Provider Allergies Allergy ClassificationReported Allergen(s)Allergy TypeDate of OnsetReaction(s) FacilityIodine (and Iodine containting drugs) (2 sources)Iodine; Translations: [Iodine]Drug Yiggppe80-86-8080Oweupqpl of skin (disorder)[facility] RehabilitationPneumococcal vaccine (1 source)Pneumococcal vaccineDrug Ptrlsfg75-96-3287LlcwaMegqjlqlsSumma Health Wadsworth - Rittman Medical Centerhellfish (1 source)Shellfish; Translations: [shellfish]Food AllergyUnknown (qualifier value)[facility] (1 source)vareniclineDrug Bgqgvfv20-59-4466TzdktjcqNyxloapyq [facility] (20 sources)Iodine; Translations: [Iodine]Drug Pdjikvq30-70-1795Ftfmqnjg of skin (disorder)[facility] (6 sources)Pneumococcal vaccine; Translations: [pneumococcal vaccine]Drug Eeuzufd19-22-6313QluopOauuqalfgUC Health (20 sources)varenicline; Translations: [VARENICLINE]Drug Jfpydbp95-23-6953 [facility] (7 sources)Ezhckth-VQB-FkR Reductase Inhibitor; Translations: [Ckhxiko-BIO-RdZ Reductase Inhibitor]Allergy to niwuzcxxo68-87-8690[facility] (20 sources)HMG-CoA reductase inhibitor; Translations: [statins]Drug allergy 37-82-7393Xkjvtkr (qualifier value), UnknownExec[facility] (6 sources)Shellfish; Translations: [shellfish]Drug allergyUnknown (qualifier value)[facility] (2 sources)black walnut pollen extract; Translations: [WLBKVNN-NDC-NBO REDUCTASE INHIBITORS]Drug Tgdtwin23-28-0401RzqC[facility] (1 source)vareniclineDrug Yynghze71-00-5338KksCleveland Clinic [facility] (1 source)Pneumovax 23Drug allergy (disorder)45-50-0232EonCleveland Clinic [facility] (20 sources)atorvastatinDrug Jjvhcmf90-98-1946ECXZ [facility] (20 sources)LovastatinAllergy to opetuccmk25-11-3287IKRO [facility] (20 sources)PravastatinDrug Fhwwtok30-67-8424QGOM [facility] (20 sources)SimvastatinAllergy to ructzhjpj81-95-1053PGBT [facility] (20 sources)Pneumococcal Vac PolyvalentDrug Fyaicrq18-35-4145JJFZ [facility] (20 sources)nickel sulfate; Translations: [NICKEL]Drug Xhqbdcv32-34-6773 [facility]Select [facility] (20 sources)ShellfishPropensity to adverse -78-3377MgkxobydtfgJJWU Healthcare (20 sources)OtherAllergy to litqkiprc63-71-8168UUEZ [facility] (1 source)Contrast media; Translations: [RED DYE]Propensity to adverse reactions to drug (disorder)75-51-3961OrhfhippmmAshtabula [facility] (1 source)Pneumococcal vaccine; Translations: [PNEUMOCOCCAL 23-CRUZ PS VACCINE] Drug Luasuil12-97-8253NqyvzsfqsmAshtabula General Hospital Rep[facility] (1 source)Shellfish; Translations: [SHELLFISH DERIVED]Propensity to adverse reactions to drug (disorder)08-97-3846AkhbcnrpnsAshtabula General Hospital Repository Medications Current Medications MedicationDrug Class(es)DatesSig (Normalized)Sig (Original)acetaminophen 325 mg / HYDROcodone bitartrate 5 mg oral tablet (12 sources)Opioid AgonistStart: 12-12-2024 End: 54-41-8996picz 1 tablet by mouth every six hours for painHYDROcodone- acetaminophen ([place]) 5-325 MG tablet Indications: Spinal stenosis, lumbar region with neurogenic claudication Take 1 tablet by mouth every 6 (six) hours if needed for severe pain 60 tablet 12/12/2024 01/11/2025 ActiveStart: 25-88-0362rmijmybmgzwzv-hydrocodone 325 mg-5 mg oral tablet Refill(s) 0 Start Date: 09/26/22 Status: OrderedStart: 03-24-2021 End: 60-40-5452qudo 1 tablet by mouth every six hours as needed for pain Hydrocodone-Acetaminophen 5-325 mg tablet Discontinued 1 TAB PO Q6H as needed for Pain March 24, 2021 12:00am March 27, 2021 11:36amalendronic acid 70 mg oral tablet (1 source)BisphosphonateStart: 38-84-9628jqocafmwkyo 70 mg Tab Refills(s) 0 Start Date: 09/26/22 Status: Orderedapixaban 2.5 mg oral tablet (20 sources)Factor Xa InhibitorStart: 04-66-2400rooj 1 tablet by mouth in the morningapixaban (Eliquis) 2.5 MG tablet Indications: Personal history of other venous thrombosis and embolism Take 1 tablet (2.5 mg) by mouth in the morning and 1 tablet (2.5 mg) before bedtime. 200 tablet 3 01/27/2025 ActiveStart: 98-47-7581toih 1 tablet by mouth twice dailyapixaban (Eliquis) 2.5 MG tablet Indications: Personal history of other venous thrombosis and embolism TAKE 1 TABLET BY MOUTH TWICE A DAY 180 tablet 1 12/27/2024 ActiveStart: 38-12-2737qwak 1 tablet by mouth twice dailyapixaban (Eliquis) 2.5 MG tablet Indications: Personal history of other venous thrombosis and embolism TAKE 1 TABLET BY MOUTH TWICE A DAY 180 tablet 1 05/13/2024 ActiveStart: 55-75-5822zajt 2.5 mg by mouth twice dailyApixaban (Eliquis) 5 mg tablet Active 2.5 MG PO Twice daily March 24, 2021 12:00am On Hold: Resume on 04/13/25. Complies with drug therapyStart: 03-95-5993uvqo 1 tablet by mouth twice dailyApixaban (Eliquis) 5 mg tablet Active 5 MG PO Twice daily March 24, 2021 12:00am On Hold: Resume on03/31/21. Complies with drug therapyaspirin 81 mg delayed release oral tablet (20 sources)Platelet Aggregation Inhibitor, Nonsteroidal Anti-inflammatory Drug Start: 27-69-1639oaud 1 mg by mouth once dailyaspirin 81 mg Oral EC Tab mg tab(s), Oral, Daily, Refills(s) 0 Start Date: 03/04/22 Status: OrderedStart: 77-56-5615zqwf 1 tablet by mouth once dailyAspirin 81 mg Tablet Active 81 MG PO Daily March 24, 2021 12:00am Complies with drug therapy End: 57-85-3435hgru 1 tablet by mouth once dailyaspirin 81 MG chewable tablet take 1 by Oral route every day Oral 02/25/2025 Discontinued (Other)bumetanide 2 mg oral tablet (1 source)Loop DiureticStart: 40-75-1937yiqv 1 tablet by mouth twice daily Bumetanide 2 mg tablet Active 2 MG PO Twice daily 60 3 July 15, 2025 12:00am Complies with drug therapybuPROPion hydrochloride 75 mg oral tablet (7 sources)AminoketoneStart: 02-25-2025 End: 90-70-2326xoip 1 tablet by mouth at bedtimebuPROPion (Wellbutrin) [...] 180 tablet 3 03/25/2025 ActiveStart: 02-22-2024 End: 88-25-5358cnsn 1 tablet by mouth in the morningcarvedilol (Coreg) 25 MG tablet Indications: Benign essential hypertension (CMS/HCC) TAKE 1 TABLET BY MOUTH IN THE MORNING AND 1 TABLET IN THE EVENING. TAKE WITH MEALS. 180 tablet 3 10/22/2024 02/25/2025 Discontinued (Other)Start: 94-75-8381wrbrhkialq 12.5 mg Tab Refills(s) 0 Start Date: 10/23/23 Status: OrderedcloNIDine hydrochloride 0.1 mg oral tablet (20 sources)Central alpha-2 Adrenergic AgonistStart: 03-20-2025 End: 47-80-0033cdcz 1 tablet by mouth in the morning, then take 1 tablet by mouth in the evening, then take 1 tablet by mouth at bedtimecloNIDine (Catapres) 0.1 MG tablet Indications: Benign essential hypertension Take 1 tablet (0.1 mg) by mouth in the morning and 1 tablet (0.1 mg) in the evening and 1 tablet (0.1 mg) before bedtime.270 tablet 3 03/31/2025 ActiveStart: 02-22-2024 End: 93-64-5436ipyw 1 tablet by mouth in the morningcloNIDine (Catapres) 0.1 MG tablet Indications: Benign essential hypertension (CMS/HCC) Take 1 tablet (0.1 mg) by mouth in the morning and 1 tablet (0.1 mg) before bedtime. 60 tablet 11 02/22/2024 12/12/2024 Discontinueddoxazosin 2 mg oral tablet (19 sources)alpha-Adrenergic BlockerStart: 03-21-2025 End: 66-60-9602adll 1 tablet by mouth in the morningdoxazosin (Cardura) 2 MG tablet Indications: Atherosclerosis of [place] coronary artery of [place] heart with stable angina pectoris TAKE 1 TABLET (2 MG) BY MOUTH IN THE MORNING 90 tablet 1 06/23/2025 10/21/2025 ActiveDULoxetine 30 mg Cap-EC (5 sources)Start: 19-33-2209APAlfcyurg 30 mg Cap-EC Refills(s) 0 Start Date: 03/04/22 Status: OrderedDULoxetine 60 mg Cap-EC (5 sources)Start: 67-99-7593UCMurggzmr 60 mg Cap-EC Refills(s) 0 Start Date: 03/04/22 Status: Orderedescitalopram 5 mg oral tablet (19 sources)Serotonin Reuptake InhibitorStart: 03-21-2025 End: 01-48-4835ynih 1 tablet by mouth once daily in the morningescitalopram (Lexapro) 5 MG tablet Indications: Depressive disorder TAKE 1 TABLET BY MOUTH EVERY DAY IN THE MORNING 90 tablet 1 06/23/2025 Activeezetimibe 10 mg oral tablet (20 sources)Dietary Cholesterol Absorption InhibitorStart: 05-67-1580ouwz 1 tablet by mouth once dailyezetimibe (Zetia) 10 MG tablet Indications: Stage 3b chronic kidney disease (CMS-HCC) TAKE 1 TABLETBY MOUTH EVERY DAY 90 tablet 3 12/27/2024 Activefenofibrate 145 mg oral tablet (20 sources)Peroxisome Proliferator Receptor alpha AgonistStart: 42-06-4416nmmx 1 tablet by mouth once dailyfenofibrate (Tricor) 145 MG tablet Indications: Mixed hyperlipidemia TAKE 1 TABLET BY MOUTH EVERY DAY 90 tablet 4 10/23/2024 Activeferrous sulfate 325 mg oral tablet (1 source)Start: 95-73-3251eihk 1 tablet by mouth twice dailyFerrous Sulfate 325 mg (65 mg iron) tablet Active 325 MG PO Twice daily 60 July 10, 2025 12:0 0am Complies with drug therapyfolic acid 1 mg oral tablet (1 source)Start: 70-96-6595vnkm 1 tablet by mouth once dailyFolic Acid 1 mg tablet Active 1 MG PO Daily 90 July 10, 2025 12:00am Complies with drug therapyfurosemide 40 mg oral tablet (19 sources)Loop DiureticStart: 00-93-8210ekva 1 tablet by mouth in the morning furosemide (Lasix) 40 MG tablet Take 40 mg by mouth in the morning and 40 mg before bedtime. 04/11/2025 ActiveStart: 03-24-2021 End: 18-96-8265wckt 1 tablet by mouth once daily as neededFurosemide 40 mg tablet Discontinued 40 MG PO Daily as needed for swelling March 24, 2021 12:00am April 08, 2025 4:13pmhydrALAZINE hydrochloride 100 mg oral tablet (20 sources)Arteriolar VasodilatorStart: 03-31-2025 End: 86-77-1527vnfd 1 tablet by mouth in the morning, [...] 11 03/31/2025 03/31/2026 Active Start: 02-22-2024 End: 26-53-7853ohgg 1 tablet by mouth in the morning, then take 1 tablet by mouth in the evening, then take 1 tablet by mouth at bedtimehydrALAZINE (Apresoline) 100 MG tablet Indications: Benign essential hypertension Take 1 tablet (100 mg) by mouth in the morning and 1 tablet (100 mg) in the evening and 1 tablet (100 mg) before bedtime. 90 tablet 11 02/22/2024 ActiveStart: 97-38-7657juyiMXUUWER 25 mg Tab Refills(s) 0 Start Date: 03/04/22 Status: Ordered 24 hr isosorbide mononitrate 30 mg extended release oral tablet (20 sources)Nitrate VasodilatorStart: 04-04-2025 End: 90-60-5117wctf 1 tablet by mouth once daily, then take 1 tablet by mouth every twenty-four hoursisosorbide mononitrate ER (Imdur) 30 MG 24 hr tablet Take 30 mg by mouth Daily 04/04/2025 04/04/2026 ActiveStart: 03-24-2021 End: 26-22-0329kesf 1 tablet by mouth once daily, then take 1 tablet by mouth every twenty-four hoursIsosorbide Mononitrate 60 mg tablet extended release 24 hr Discontinued 60 MG PO Daily March 24, 2021 12:00am April 08, 2025 4:14pm magnesium oxide 400 mg oral tablet (2 sources)Start: 80-02-1880vkuk 1 tablet by mouth twice dailyMagnesium Oxide 400 mg (241.3 mg magnesium) tablet Active 400 MG PO Twice daily July 15, 2025 4:39pm Complies with drug therapyStart: 07-15-2025 End: 15-02-1643uvgm 1 tablet by mouth once dailyMagnesium Oxide 400 mg (241.3 mg magnesium) tablet Discontinued 400 MG PO Daily July 15, 2025 12:00am July 15, 2025 4:39pmmelatonin 3 mg oral tablet (9 sources)Start: 03-20-2025 End: 29-87-9212bvfz 2 tablets by mouth once daily at bedtimeMelatonin 3 mg tablet Active 6 MG PO Daily at bedtime April 08, 2025 12:00am Complies with drug therapyMetoprolol (12 sources)beta-Adrenergic BlockerStart: 99-70-2892Wjewpxcggf tartrate 50 mg Tab Refills(s) 0 Start Date: 03/04/22 Status: OrderedStart: 03-24-2021 End: 29-18-2631ldce 1 tablet by mouth twice dailyMetoprolol Tartrate 50 mg tablet Discontinued 50 MG PO Twice daily March 24, 2021 12:00am April 08, 2025 4:14pmminoxidil 2.5 mg oral tablet (2 sources)Arteriolar VasodilatorStart: 59-61-9376bfxe 1 tablet by mouth twice dailyMinoxidil 2.5 mg Tablet Active 2.5 MG PO Twice daily 0 0 April 11, 2025 12:00am Complies with xivydvewayl06 hr mirabegron 50 mg extended release oral tablet (1 source)beta3-Adrenergic AgonistStart: 75-04-9905ahbe 1 tablet by mouth once dailymirabegron 50 mg oral tablet, extended release 50 mg = 1 tab(s), Oral, Daily, # 30 tab(s), Refills(s) 11, Pharmacy: [facility]/pharmacy #[id number], 163, cm, 11/18/24 13:38:00 EST, Height/Length Dosing, 74.1, kg,11/18/24 13:38:00 EST, Weight Dosing Start Date: 11/18/24 Status: OrderedNIFEdipine 90 mg osmotic 24 hr extended release oral tablet (20 sources)Dihydropyridine Calcium Channel BlockerStart: 77-47-3352pmsp 1 tablet by mouth twice dailyNifedipine 90 mg tablet extended release 24hr Active 90 MG PO Twice daily April 08, 2025 4:18pm Complies with drug therapyStart: 62-93-8413iuas 1 tablet by mouth every twenty-four hours in the morning NIFEdipine XL (Procardia XL) 90 MG 24 hr tablet Indications: Atherosclerosis of [place] coronary artery of [place] heart with stable angina pectoris Take 1 tablet (90 mg) by mouth in the morning and 1 tablet (90 mg) before bedtime. 180 tablet 3 03/31/2025 ActiveStart: 88-57-5563uqoh 1 tablet by mouth every twenty-four hours in the morningNIFEdipine XL (Procardia XL) 90 MG 24 hr tablet Take 90 mg by mouth in the morning and 90 mg beforebedtime. 03/20/2025 ActiveStart: 07-95-1278MBJZmceuwq (Eqv-Procardia XL) 90 mg oral tablet, extended release Refills(s) 0 Start Date: 03/04/22 Status: OrderedStart: 03-24-2021 End: 63-49-8908gsyy 1 tablet by mouth once dailyNifedipine 90 mg tablet extended release 24hr Discontinued 90 MG PO Daily March 24, 2021 12:00am April 08, 2025 4:19pmnitroglycerin 0.4 mg sublingual tablet (20 sources)Nitrate VasodilatorStart: 03-20-2024 End: 59-40-4726flzajojabboyn (Nitrostat) 0.4 MG SL tablet Indications: Atherosclerosis of [place] coronary artery of [place] heart with stable angina pectoris Place 1 tablet (0.4 mg) under the tongue every 5 (five) minutes if needed for chest pain 90 tablet 12 03/20/2024 ActiveStart: 03-04-2022 nitroglycerin 0.4 mg SubL Leeper mg spray(s), SubLingual, q5min, Refills(s) 0 Start Date: 03/04/22 Status: Sjidjkz99 hr oxybutynin chloride 10 mg extended release oral tablet (9 sources)Cholinergic Muscarinic AntagonistStart: 10-23-2023 End: 02-87-6393rily 1 tablet by mouth once dailyoxybutynin 10 mg ER Tab 10 mg = 1 tab(s), Oral, Daily, # 90 tab(s), Refills(s) 3, Pharmacy: [facility]/pharmacy #[id number], 163, cm, 10/23/23 12:33:00 EST, Height/Length Dosing, 81.5, kg, 10/23/23 12:33:00 EST, Weight Dosing Start Date: 10/23/23 Status: Orderedpantoprazole 40 mg delayed release oral tablet (20 sources)Proton Pump InhibitorStart: 85-95-4978Ljdjgkvvngax 40 mg tablet,delayed release (DR/EC) Active 40 MG PO Twice daily 0 28 0 April 11, 2025 11:56am BID x 4 weeks then daily thereafter Complies with drug therapy Start: 03-24-2021 End: 03-40-6927ddrg 1 tablet by mouth once dailypantoprazole (ProtoNix) 40 MG EC tablet Indications: Gastroesophageal reflux disease, unspecified whether esophagitis present Take 1 tablet (40 mg) by mouth Daily 90 tablet 3 03/25/2025 Activepotassium chloride 20 meq extended release oral tablet (3 sources)Start: 48-00-2988wila 1 tablet by mouth once dailyPotassium Chloride 20 mEq tablet extended release Active 20 MEQ PO Daily 90 July 10, 2025 12:00am Complies with drug therapyStart: 06-09-2025 End: 05-02-0369flin 1 tablet by mouth in the morningpotassium chloride CR (Klor- Con M10) 10 MEQ ER tablet Indications: Hypokalemia Take 1 tablet (10 mEq) by mouth in the morning and 1 tablet (10 mEq) before bedtime. Do all this for 7 days. Do not crush or chew. 14 tablet 06/09/2025 06/16/2025 Activesennosides, intermediate 8.6 mg oral tablet (9 sources)Start: 03-20-2025 End: 87-17-9102jjiv 1 tablet by mouth once daily at bedtimeSennosides (Senna) 8.6 mg tablet Active 8.6 MG PO Daily at bedtime April 08, 2025 12:00am Complies with drug therapyspironolactone 25 mg oral tablet (1 source)Aldosterone AntagonistStart: 64-69-3123hlvi 1 tablet by mouth once dailySpironolactone (Aldactone) 25 mg tablet Active 25 MG PO Daily 90 June 30, 2025 12:00am Complies with drug therapytraMADol hydrochloride 50 mg oral tablet (14 sources)Opioid AgonistStart: 03-24-2025 End: 74-96-9185yszk 1 tablet by mouth every eight hours for paintraMADol (Ultram) 50 MG tablet Indications: Primary osteoarthritis of both knees Take 1 tablet (50 mg) by mouth every 8 (eight) hours if needed for severe pain 60 tablet 2 03/24/2025 Activezolpidem tartrate 10 mg oral tablet (20 sources)gamma-Aminobutyric Acid-ergic AgonistStart: 04-08-2025 End: 22-10-4081eelc 5 mg by mouth at bedtime as neededZolpidem 10 mg tablet Active 5 MG PO Bedtime as needed for insomnia 2 4 0 April 11, 2025 11:56am In somnia Insomnia, unspecified Complies with drug therapyStart: 03-24-2025 End: 96-90-2860hmlptppg (Ambien) 5 MG tablet Indications: Insomnia due to medical condition Take 1 tablet (5 mg) by mouth as needed at bedtime for sleep 30 tablet 5 03/24/2025 09/20/2025 ActiveStart: 03-24-2025 End: 47-26-6338zwijlgnl (Ambien) 10 MG tablet Indications: Insomnia due to medical condition Take 0.5 tablets (5 mg) by mouth as needed at bedtime for sleep 30 tablet 5 03/24/2025 03/24/2025 Discontinued (Reorder)Start: 03-24-2021 End: 30-94-2466txhm 1 tablet by mouth at bedtimeZolpidem 10 mg tablet Discontinued 10 MG PO Bedtime March 24, 2021 12:00am April 08, 2025 4:19pm Completed/Discontinued Medications MedicationDrug Class(es)DatesSig (Normalized)Sig (Original)diclofenac sodium 0.01 mg/mg topical gel (9 sources)Nonsteroidal Anti-inflammatory DrugStart: 11-23-2023 End: 66-48-0403Ikeigldexp Sodium 1 % gel Discontinued 2 GM TOPICAL as directed as needed for knee pain 2023 7:39am April 08, 2025 4:11pm Start: 89-11-7079Ebslbptoay Sodium Active 2 GM TOPICAL as directed 10 17November 23, 2023 1:00amDULoxetine 30 mg delayed release oral capsule (20 sources)Serotonin and Norepinephrine Reuptake InhibitorStart: 12-27-2024 End: 50-77-9101mwgl 1 capsule by mouth once dailyDULoxetine (Cymbalta) [address] capsule Indications: Depressive disorder Take 1 capsule (30 mg) by mouth Daily Take with 60 mg capsule 90 capsule 4 01/02/2025 03/24/2025 DiscontinuedStart: 12-27-2024 End: 48-11-1103osxa 1 capsule by mouth once dailyDULoxetine (Cymbalta) [address] capsule Indications: Anxiety Take 1 capsule (60 mg) by mouth Daily 90 capsule 01/02/2025 03/24/2025 DiscontinuedStart: 45-54-1566razm 1 capsule by mouth once dailyDULoxetine (Cymbalta) [address] capsule Indications: Depressive disorder (CMS/HCC) Take 1 capsule (30 mg) by mouth Daily Take with 60 mg capsule 100 capsule 3 12/30/2023 ActiveStart: 10-30-2023 End: 57-72-7635kjdu 1 capsule by mouth once dailyDULoxetine (Cymbalta) [address] capsule Indications: Anxiety Take 1 capsule (60 mg) by mouth Daily 90 capsule 11/04/2024 ActiveStart: 01-11-1578QHZnacnlln 30 mg Cap-EC Refills(s) 0 Start Date: 03/04/22 Status: OrderedStart: 57-94-0152ZGXbtfgyve 60 mg Cap-EC Refills(s) 0 Start Date: 03/04/22 Status: OrderedStart: 03-24-2021 End: 84-72-0954wasq 3 capsules by mouth at bedtimeDuloxetine 30 mg capsule,delayed release(DR/EC) Discontinued 90 MG PO Bedtime March 24, 2021 12:00am April 08, 2025 4:12pmStart: 58-08-2812qtvo 90 mg by mouth at bedtime Duloxetine Active 90 MG PO Bedtime March 24, 2021 10:33pm12 hr guaiFENesin 600 mg extended release oral tablet (6 sources)Start: 03-27-2021 End: 33-80-8402rgma 2 tablets by mouth twice daily as needed for congestion, then take 1 tablet by mouth every twelve hours as needed for congestion Guaifenesin (Mucinex) 600 mg Tablet Extended Release 12hr Discontinued 1200 MG PO Twice daily as needed for congestion 0 0 March 27, 2021 12:00am November 23, 2023 3:26pmmeloxicam 15 mg oral tablet (20 sources)Nonsteroidal Anti-inflammatory DrugStart: 06-10-2024 End: 44-04-3729cjky 1 tablet by mouth once dailyMeloxicam 15 mg tablet Discontinued 0 .ROUTE .COMPLEX 30 2 June 10, 2024 7:33am April 08, 2025 4:14pm TAKE 1 TABLET BY MOUTH EVERY DAYStart: 11-23-2023 End: 49-87-7934amlb 1 tablet by mouth once dailyMeloxicam 15 mg tablet Discontinued 15 MG PO daily 30 30 2 March 11, 2024 7:39am June 10, 2024 7:34amondansetron 4 mg oral film (2 sources)Serotonin-3 Receptor AntagonistStart: 03-24-2021 End: 36-59-6395bgku 4 mg by mouth every eight hoursOndansetron Discontinued 4 MG PO Q8H March 24, 2021 10:38pm March 27, 2021 11:37amStart: 03-24-2021 End: 19-38-8385juqi 4 mg by mouth every eight hoursOndansetron Discontinued 4 MG PO Q8H March 24, 2021 12:00am March 27, 2021 11:37amOndansetron 4 mg Film (4 sources)Start: 03-24-2021 End: 16-04-1013kfkg 4 mg by mouth every eight hours as needed for nausea Ondansetron 4 mg Film Discontinued 4 MG PO Q8H as needed for Nausea March 24, 2021 12:00am March 27, 2021 11:37ampregabalin 75 mg oral capsule (20 sources)Start: 03-24-2021 End: 21-39-4209ojsa 1 capsule by mouth twice dailyPregabalin 75 mg capsule Discontinued 75 MG PO Twice daily March 24, 2021 12:00am April 08, 2025 4:15pm tiZANidine 4 mg oral tablet (20 sources)Central alpha-2 Adrenergic AgonistStart: 03-04-2022 End: 82-02-8810mxpd 1 tablet by mouth twice daily as neededtiZANidine (Zanaflex) 4 MG tablet Indications: Radiculopathy of lumbar region TAKE 1 TABLET BY MOUTH TWICE A DAY NEEDED 180 tablet 3 05/13/2024 03/24/2025 Discontinuedvalsartan 320 mg oral tablet (20 sources)Angiotensin 2 Receptor BlockerStart: 03-24-2021 End: 97-98-8035fvuj 1 tablet by mouth once dailyValsartan 320 mg tablet Discontinued 320 MG PO Daily March 24, 2021 12:00am April 08, 2025 4:15pm Problems Active Problems Problem ClassificationProblemDateDocumented DateEpisodic/ChronicAcute and unspecified renal failure (17 sources)Injury of kidney; Translations: [Acute kidney failure, unspecified] Onset: [id number] myocardial infarction (6 sources)Myocardial typrjpbhbn57-91-2343OzvuwnpFujpndnifsmbjn/social admission (6 sources)Patient encounter status; Translations: [Other specified counseling] 98-63-7086XyriyrozXdhcuov disorders (3 sources)Anxiety; Translations: [Anxiety disorder, unspecified]11-03-2024 ChronicAortic; peripheral; and visceral artery aneurysms (20 sources)Dissection of abdominal aorta; Translations: [Dissection of abdominal aorta]Onset: [id number]yr dysrhythmias (20 sources)Tucker rhythm disorder; Translations: [Other specified cardiac arrhythmias]Onset: 879382-16-6855QaumxdtMkgeplz kidney disease (20 sources)Chronic kidney disease stage 3B ; Translations: [Stage 3b chronic kidney disease (HCC)]Onset: 011260-31-3549IpzvhqjOhpdmkj kidney disease (2 sources)Chronic kidney disease; Translations: [Chronic kidney disease, stage 3b]Onset: 90-73-0968Oqurzfyjliua of device; implant or graft (20 sources)Atherosclerosis of coronary artery bypass graft(s) without angina pectoris; Translations: [Arteriosclerosis of autologous vein coronary artery bypass graft]Onset: 801771-03-2291HolhajaJevzvyxfwr heart failure; nonhypertensive (4 sources)Chronic diastolic heart failure; Translations: [Chronic diastolic (congestive) heart failure]23-06-8117XnedfhvSkhctgnx atherosclerosis and other heart disease (20 sources)Atherosclerotic heart disease of [place] coronary artery without angina pectoris; Translations: [Coronary atherosclerosis]Onset: 02-03-2022 ChronicDeficiency and other anemia (20 sources)Anemia due to chronic blood loss; 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 Deficiency and other anemia (12 sources)Anemia; Translations: [Anemia, unspecified]70-40-3325Jzkyvoac Deficiency and other anemia (1 source)Anemia, unspecified; Translations: [Anemia, unspecified]Onset: 83-59-5195KmamumsyTnowpxja mellitus without complication (2 sources)Type 2 diabetes eoywekit44-34-7554NzexeeoLfnsqsxbl of lipid metabolism (20 sources)Hyperlipidemia; Translations: [Mixed hyperlipidemia]Onset: 548251-29-1935GydwrhwPxkrvudyfd disorders (20 sources)Gastroesophageal reflux disease; Translations: [Gastro-esophageal reflux disease without esophagitis]Onset: 118197-21-9368ZmcmteuVcclazodw hypertension (20 sources)Hypertensive disorder; Translations: [Essential (primary) hypertension]Onset: 580557-36-3817YllufjcXuzpn and electrolyte disorders (10 sources)Hypervolemia; Translations: [Fluid overload, unspecified]Onset: 083393-22-9169PiygvvswKjznxdqxmwxgzhbh hemorrhage (14 sources)Lower gastrointestinal hemorrhage; Translations: [Gastrointestinal hemorrhage, unspecified]Onset: 097653-43-6068FibfezetKajbdmbzwledo symptoms and ill-defined conditions (7 sources)Urge incontinence; Translations: [Urge incontinence of urine]Onset: 42-22-9725QojmentVpdxq valve disorders (3 sources)Nonrheumatic aortic (valve) insufficiency; Translations: [NONRHEUMATIC AORTIC INSUFFICIENCY]Onset: 88-51-7086YynsaxhSbjupkegzmwt with complications and secondary hypertension (16 sources)Hypertensive renal disease; Translations: [Hypertensive chronic kidney disease with stage 1 throughstage 4 chronic kidney disease, or unspecified chronic kidney disease]Onset: 394148-21-2348YyayijxQxycpya and fatigue (10 sources)Asthenia; Translations: [Weakness]Onset: EpisodicMenopausal disorders (20 sources)Other primary ovarian failure; Translations: [Decreased estrogen level]Onset: 74-96-9695PqwwniqJfjt disorders (20 sources)Depressive disorder; Translations: [Depressive disorder]Onset: 719546-49-0240SqfzesaMhjzripddbao breast conditions (20 sources)Fibrocystic disease of breast; Translations: [Diffuse cystic mastopathy of unspecified breast]Onset: 281372-81-4770ZhfvspsSkkcixqrtdx deficiencies (4 sources)Folic acid deficiency; Translations: [Deficiency of other specified B group vitamins]92-79-3586CngxvvbjVdhbnlpym or stenosis of precerebral arteries (20 sources)Occlusion and stenosis of bilateral carotid arteries; Translations: [Carotid artery occlusion]Onset: 165982-88-7653FqhguqdNtvikbmkkgqoon (20 sources)Primary gonarthrosis, bilateral; Translations: [Bilateral primary osteoarthritis of knee]Onset: 030074-92-4119JdtjhxmKjtixnkmtrdo (20 sources)Osteoporosis; Translations: [Age-related osteoporosis without current pathological fracture]Onset: 156089-13-0339BdodhzhUekyf acquired deformities (2 sources)Spondylolisthesis, lumbar region; Translations: [Spondylolisthesis, lumbar region]Onset: 96-29-2714TuycvzhtOrvor acquired deformities (1 source)Spondylolisthesis, lumbosacral region; Translations: [Spondylolisthesis, lumbosacral region]Onset: 19-99-2791EyllohmmDysgr aftercare (4 sources)Long-term current use of anticoagulant; Translations: [senior living (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]Onset: 03-63-8168KkhwkbxaUdedg and ill-defined heart disease (6 sources)Heart ohtlwkn81-86-9933EwmstjsOajit circulatory disease (20 sources)Stricture of artery; Translations: [Stricture of artery]Onset: 204480-88-8773MphuyzsZrypl diseases of kidney and ureters (6 sources)Disorder of kidney and/or ureter; Translations: [Disorder of kidney and ureter, unspecified]Onset: 34-54-9054CdzfhqihWmtfo diseases of veins and lymphatics (17 sources)Lymphedema; Translations: [Lymphedema, not elsewhere classified] Onset: 737687-13-4892RlomdhmOsmbl diseases of veins and lymphatics (1 source)Lymphedema, not elsewhere classified; Translations: [Other lymphedema] 35-67-0306NmqgganAcqsw endocrine disorders (2 sources)Hyperparathyroidism; Translations: [Hyperparathyroidism, unspecified] 08-44-3760RpiddidSeukw gastrointestinal disorders (20 sources)Irritable bowel syndrome; Translations: [Irritable bowel syndrome without diarrhea]Onset: 252577-73-8578HszqcxoAexdb gastrointestinal disorders (2 sources)Constipation, unspecified; Translations: [Constipation, unspecified] Onset: 94-77-9445WhnqsznfJiavl gastrointestinal disorders (2 sources)Functional diarrhea; Translations: [Functional diarrhea]06-09-2025 EpisodicOther lower respiratory disease (4 sources)Fibrosis of lung; Translations: [Pulmonary fibrosis, unspecified] 08-21-1738OfeykuvAsdex non-traumatic joint disorders (5 sources)Pain in left knee; Translations: [Left knee pain]94-17-6477Aqmhwimn Other nutritional; endocrine; and metabolic disorders (20 sources)Obese class I; Translations: [Obesity (BMI 30.0-34.9)]Onset: 077077-75-7634NolmpywZjepq nutritional; endocrine; and metabolic disorders (2 sources)Hypomagnesemia; Translations: [Hypomagnesemia]56-81-4244EivwltqQcziy nutritional; endocrine; and metabolic disorders (2 sources)Hypocalcemia; Translations: [Hypocalcemia]17-20-0367ZlthpqbPhrua nutritional; endocrine; and metabolic disorders (2 sources)Weight decreased; Translations: [Abnormal weight loss]02-25-2025 EpisodicOther skin disorders (2 sources)Loss of hair; Translations: [Nonscarring hair loss, unspecified] 85-97-3886IypzfvqiUvdmzpefix and visceral atherosclerosis (20 sources)Peripheral vascular disease, unspecified; Translations: [Peripheral vascular disease, unspecified]Onset: 989092-42-0030ZwaebkdMuxpvfja codes; unclassified (20 sources)Insomnia co-occurrent and due to medical condition; Translations: [Insomnia due to medical condition]Onset: 688612-69-2051BrufxfwFndojwus codes; unclassified (3 sources)Localized edema; Translations: [LOCALIZED EDEMA]Onset: 02-03-2022 EpisodicResidual codes; unclassified (5 sources)Poor oral hygiene; Translations: [Other specified personal risk factors, not elsewhere classified]03-31-5096OuzglkhnBobuwtsz codes; unclassified (1 source)Tobacco use; Translations: [Tobacco use disorder]16-51-4999Elavolig Residual codes; unclassified (1 source)Other specified personal risk factors, not elsewhere classified; Translations: [Other specified disorders of the teeth and supporting structures] 81-63-8810QjlbliwhSkmzguju codes; unclassified (3 sources)Insomnia, unspecified; Translations: [Insomnia, unspecified]Onset: 53-29-9951PjjngfohOzgmxpzkbnt; intervertebral disc disorders; other back problems (20 sources)Lumbar spondylosis; Translations: [Spondylosis without myelopathy or radiculopathy, lumbar region]Onset: 285786-26-4150LihrnerRdatewsfkzy; intervertebral disc disorders; other back problems (2 sources)Spondylosis; intervertebral disc disorders; other back problems; Translations: [L5-S1 RADICULOPATHY, SPONDYLOSIS]Onset: 30-69-9965Dedtzwkfu- related disorders (20 sources)Tobacco dependence syndrome; Translations: [Nicotine dependence, unspecified, uncomplicated]Onset: 218407-57-1450DtgolmlZgoihie disorders (20 sources)Thyroid nodule; Translations: [Nontoxic single thyroid nodule]Onset: 274053-55-7884QfjscmlGihxuzbakgse (5 sources)Drug therapy -57-1460Bmdlvplejcyt (17 sources)Patient on antidepressant monitoring planOnset: Unclassified (2 sources)Follow-up with GI if needed. The office will follow-up pathology for H. pylori.Unclassified (1 source)Follow-up with Nephrology as previously scheduled. Recommend closer follow-up, please call office on Monday to see if can get a closer appointment. Past or Other Problems Problem ClassificationProblemDateDocumented DateEpisodic/ChronicAbdominal pain (20 sources)Generalized abdominal pain; Translations: [Generalized abdominal pain]Onset: 05-05-2023 Resolved: 176588-05-0718XyjcturwWfrbgozk foot deformities (20 sources)Left foot drop; Translations: [Foot drop, left foot]Onset: 071602-62-4472RkuwdpzvJzhwtclt reactions (20 sources)Allergy to seafood; Translations: [Allergy to seafood]Onset: 955610-20-2949OgpmkascOlgs; stupor; and brain damage (20 sources)Daytime somnolence; Translations: [Somnolence]Onset: 05-05-2023 26-45-7280FnswzhxjAleoiccd atherosclerosis and other heart disease (20 sources)Patient post percutaneous transluminal coronary angioplasty; Translations: [Coronary angioplasty status]Onset: 270098-75-8176Inneavbx Diabetes mellitus with complications (20 sources)Renal disorder due to type 2 diabetes mellitus; Translations: [Type 2 diabetes mellitus with other diabetic kidney complication]Onset: 10-24-2019 Resolved: 693034-13-3833RzjqziiKgakclgxfcvka symptoms and ill-defined conditions (20 sources)Proteinuria; Translations: [Proteinuria, unspecified]Onset: 198923-84-6626GyiptjlsZywj disorders (17 sources)Mood disordersOnset: Nausea and vomiting (20 sources)Nausea and vomiting; Translations: [Nausea with vomiting, unspecified]Onset: 003112-55-8149TlxyolevSbreequkfcm chest pain (20 sources)Chest pain; Translations: [Chest pain, unspecified]Onset: 05-23-2018 01-39-0605SimrazsiQsxft acquired deformities (20 sources)Lumbar spondylolisthesis; Translations: [Spondylolisthesis, lumbar region]Onset: 833563-93-7784ToaqqrsxLeoet aftercare (1 source)senior living (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; Translations: [BAD WORK GATHERER CURRNT USE ANTICOAGULANTS]Onset: 48-72-0514DbkbydsmRnmdy aftercare (20 sources)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; Translations: [long term care pharmacist (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]Onset: 347875-58-2709NiauesssVmcxn connective tissue disease (3 sources)Pain in leg, unspecified; Translations: [PAIN IN LEG UNSPECIFIED] Onset: 66-06-1502QkmjikabRcgbp connective tissue disease (1 source)Pain in left leg; Translations: [PAIN IN LEFT LEG]Onset: 02-25-2022 EpisodicOther connective tissue disease (1 source)Pain in right leg; Translations: [PAIN IN RIGHT LEG]Onset: 02-25-2022 EpisodicOther connective tissue disease (20 sources)Fibromyalgia; Translations: [Fibromyalgia]Onset: 05-05-2023 76-15-4374YrltnduaZuvwu connective tissue disease (20 sources)Muscle pain; Translations: [Myalgia, unspecified site]Onset: 574970-81-2627NkibkjptWywwc connective tissue disease (20 sources)Fibromyositis; Translations: [Fibromyalgia]Onset: 05-23-2018 09-00-7076CrlasjhxJjqrl connective tissue disease (20 sources)Neurogenic claudication; Translations: [Other symptoms and signs involving the nervous system]Onset: 256578-46-1081QuscgpyaXhphv connective tissue disease (1 source)Fibromyalgia; Translations: [Fibromyalgia]Onset: 31-28-5853Ybaiejfx Other diseases of kidney and ureters (20 sources)Kidney lesion; Translations: [Disorder of kidney and ureter, unspecified]Onset: 548987-24-2053WglkwbtkCarzl diseases of kidney and ureters (4 sources)Disorder of kidney and ureter, unspecified; Translations: [DISORDER KIDNEY AND URETER UNS]Onset: 45-99-7685AikwfgiwMycjp diseases of veins and lymphatics (20 sources)Peripheral venous insufficiency; Translations: [Venous insufficiency (chronic) (peripheral)]Onset: 247746-98-7311XebokejpWemsj lower respiratory disease (5 sources)Shortness of breath; Translations: [SHORTNESS OF BREATH]Onset: 31-21-4894IoooqdvzIawbc screening for suspected conditions (not mental disorders or infectious disease) (20 sources)Cardiovascular stress test abnormal; Translations: [Abnormal result of other cardiovascular function study]Onset: 596402-43-7088YtpbhovjBzwao upper respiratory infections (20 sources)Sinusitis; Translations: [Chronic sinusitis, unspecified]Onset: 04-30-2020 Resolved: 481197-49-4951WwopfwwJcpqbngwz; thrombophlebitis and thromboembolism (20 sources)History of thromboembolism of vein; Translations: [Personal history of other venous thrombosis and embolism]Onset: 042719-17-0585Uldqcwwb Pulmonary heart disease (20 sources)Personal history of pulmonary embolism; Translations: [Infarction of lung due to embolus]Onset: 609816-96-0682OqhcuegcVoxadsmu codes; unclassified (20 sources)Nicotine user; Translations: [Tobacco use]Onset: 02-27-2019 89-01-1248AwsglxtwAoutnvce codes; unclassified (20 sources)Other specified health status; Translations: [Other drug allergy] Onset: 061978-91-2710KojuhkqsYnqrsxmh codes; unclassified (20 sources)Localized edema; Translations: [Localized edema]Onset: 10-04-2023 75-13-6896DplbkdgrHiqndqkegzj; intervertebral disc disorders; other back problems (20 sources)Spinal stenosis of lumbar region; Translations: [Spinal stenosis, lumbar region with neurogenic claudication]Onset: 449262-51-0482Tmhsejrw Results Test NameValueInterpretationReference RangeFacilityALL RENAL FUNCTION PANELon 14-82-0673Kaoarlv [Mass/Vol]3.2 g/dLLow3.4 - 5.0 g/dLNOMS HealthcareAnion gap [Moles/Vol]17.7 mmol/LNOMS HealthcareCalcium [Mass/Vol]8.7 mg/dL8.5 - 10.1 mg/dL NOMS HealthcareChloride [Moles/Vol]101 mmol/L98 - 107 mmol/LNOMS HealthcareCO2 [Moles/Vol]23.4 mmol/L21.0 - 32.0 mmol/LNOMS HealthcareCreatinine [Mass/Vol]3.55 mg/dLHigh0.55 - 1.02 mg/dLNOMS HealthcareGFR/1.73 sq M.predicted CKD-EPI (S/P/Bld) [Vol rate/Area]15Low>=60 mL/min/1.73m 2NOMS HealthcareGlucose [Mass/Vol]105 mg/dL74 - 106 mg/dLNOMS HealthcareInterpretation and review of laboratory resultsAbnormalNOMS HealthcarePhosphate [Mass/Vol]4.0 mg/dL2.6 - 4.7 mg/dLNOMS HealthcarePotassium [Moles/Vol]5.1 mmol/L3.5 - 5.1 mmol/LNOMS HealthcareSodium [Moles/Vol]137 mmol/L136 - 145 mmol/LNOMS HealthcareTBH EGFR- NON AF RIGKHLQB44Mcw>=60 mL/min/1.73m 2NOMS HealthcareUrea nitrogen [Mass/Vol] 78.0 mg/dLCritically high7.0 - 18.0 mg/dLNONV HealthcareComment on above:RESULTS CALLED TO LILY ROBERT LPN at 1035Urea nitrogen/Creatinine [Mass ratio]22.0 mg/mgNOMS HealthcareCLINISYNCNCORNERSTONE SPECIAL[facility] HealthcareLaboratory - Chemistry and Chemistry - challengeOrdered By: Elsy Patino on 02-64-9934Kihxvymei Ql (U)Negative NEGATIVECleveland Clinic Children'S Hospital For RehabilitationGlucose (U) [Mass/Vol]NegativeNEGATIVE [facility] RehabilitationKetones Ql (U)NegativeNEGMercy Health St. Vincent Medical CenterpH (U)5.5 [pH]5.0-9.0[facility] Specific gravity (U) [Rel density]1.0201.005-1.025[facility] RehabilitationUrobilinogen Qn (U)0.2 {Dago'U}/dL0.2-1.0[facility] RehabilitationLaboratory - Specimen informationOrdered By: Elsy Patino on 07-11-2025 Appearance (U)CLEARCLEARFireOhioHealth O'Bleness HospitalColor (U)YELLOWYELLOW [facility] RehabilitationLaboratory - UrinalysisOrdered By: Elsy Patino on 09-65-2686Miqprey casts LM Ql (Urine sed)RARECleveland Clinic Children'S Hospital For RehabilitationLeukocyte esterase Test strip Ql (U)NegativeNEGMercy Health St. Vincent Medical CenterMucus Ql (Urine sed)NONE SEENNONE SEENCleveland Clinic Children'S Hospital For RehabilitationNitrite Ql (U)NegativeNEGMercy Health St. Vincent Medical CenterProtein (U) [Mass/Vol]242.1 mg/dLHigh<=11.9[facility] RehabilitationProtein Ql (U) >=300 mg/dLAbnormalNEG/TRACECleveland Clinic [facility] Hospital For RehabilitationNo Panel InformationOrdered By: Elsy Patino on 96-49-0331Kznrg BacteriaTRACE #/HPF AbnormalNONE [facility] HospitalUrine Occult BloodNegative NEGATIVECleveland Clinic Children'S Hospital For RehabilitationUrine Other CastsSEEN #/LPFAbnormalNONE SEENCleveland Clinic Children'[facility] Hospital For RehabilitationUrine Other CrystalsNone Seen #/HPFNone [facility] GlenbeighUrine Random Frmudmjmss36.33 mg/dL 20.00-300.00[facility] RehabilitationUrine RBC0-2 #/HPF0-2FUniversity Hospitals TriPoint Medical CenterUrine Squamous Epithelial CellsRARE #/LPFNONE/RARE [facility] RehabilitationUrine WBC0-2 #/HPFAbnormalNONE [facility] HospitalTBH URINE T PROTEIN CREAT RATIOon 87-27-1491UZYDOCKVKV URINE NZCGLC33.33 mg/dL20.00 - 300.00 mg/dLNONV HealthcareInterpretation and review of laboratory resultsAbnormalNONV HealthcareProtein (U) [Mass/Vol]242.1 mg/dLHighNINF - 11.9 mg/dLNONV HealthcarePROTEIN CREATININE RATIO URINE2.49NONV HealthcareCLINISYNCNOMS HealthcareUrine protein/creatinine ratioOrdered By: Elsy Patino on 99-38-2944Bsjirwe/Creatinine (U) [Ratio]2.49[facility] RehabilitationErythrocyte distribution width Auto (RBC) [Ratio]Ordered By: Elsy Patino on 78-32-7592Dwjkrnlazvb distribution width (RBC) [Ratio]17.8 %High 11.0-15.0[facility] For RehabilitationGlomerular filtration rate (GFR) estimation in non- AmericanOrdered By: Elsy Patino on 99-23-4910HVQ/1.73 sq M.predicted among non-blacks MDRD (S/P/Bld) [Vol rate/Area]14 mL/min/{1.73_m2}Low>=60 mL/min/1.73m [address] [place] [address] CBC WITH PLATELET NO DIFFERENTIALon 55-76-3058Yslgktjtwbt distribution width (RBC) [Ratio]17.8 %High11.0 - 15.0 %[facility] HealthcareHematocrit (Bld) [Volume fraction] 26.8 %Low36.0 - 48.0 %[facility] Specialty HospitalHemoglobin (Bld) [Mass/Vol]9.1 g/dLLow12.0 - 16.0 g/dLSelect Specialty HospitalInterpretation and review of laboratory results AbnormalSt. Louis Behavioral Medicine InstituteH (RBC) [Entitic mass]29.0 pg26.7 - 34.0 pgSt. Louis Behavioral Medicine InstituteHC (RBC) [Mass/Vol]34.0 g/dL29.9 - 35.2 g/dLSt. Louis Behavioral Medicine InstituteV (RBC) [Entitic vol]85.4 fL81.0 - 99.0 fLSelect Specialty HospitalPlatelet mean volume (Bld) [Entitic vol]10.7 fL9.5 - 13.5 fLCameron Regional Medical Center YID115RABFSac-Osage HospitalTB RBC 3.14LowSelect Specialty HospitalTB WBC4.3[facility]ty HospitalCLINISYNCNRusk Rehabilitation Center Hematocrit Auto (Bld) [Volume fraction]Ordered By: Elsy Patino on 07-09-2025 Hematocrit (Bld) [Volume fraction]26.8 %Low36.0-48.0[facility] RehabilitationHemoglobin [Mass/volume] in BloodOrdered By: Elsy Patino on 07-09-2025 Hemoglobin (Bld) [Mass/Vol]9.1 g/dLLow12.0-16.0[facility] Iron binding capacity [Mass/volume] in Serum or PlasmaOrdered By: Elsy Patino on 25-69-5301Grlw binding capacity [Mass/Vol]301.0 ug/dL250.0-450.0[facility] RehabilitationIron saturation [Mass Fraction] in Serum or PlasmaOrdered By: Elsy Patino on 24-32-6613Btfy saturation [Mass fraction]13.3 %[facility] RehabilitationLaboratory - Chemistry and Chemistry - challengeOrdered By: Elsy Patino on 98-64-3071Teicntc [Mass/Vol]3.1 g/dLLow3.4-5.0[facility] For RehabilitationCalcium [Mass/Vol]6.1 mg/dLLow8.5-10.1FUniversity Hospitals TriPoint Medical CenterChloride [Moles/Vol]103 mmol/Q75-775HvmervepbCleveland Clinic [facility] Hospital For RehabilitationCO2 [Moles/Vol]24.9 mmol/L21.0-32.0[facility] Cobalamin (Vitamin B12) [Mass/Vol]437 pg/jY797-3914IluyrhpjaCleveland Clinic Children'S Hospital For RehabilitationComment on above:Performed at: [place] [id number] Director: Raul Medel PhD, Phone: [phone] Creatinine [Mass/Vol]3.20 mg/dLHigh0.55-1.02[facility] Ferritin [Mass/Vol]88.0 ng/mL8.0-252.0[facility] RehabilitationGFR/1.73 sq M.predicted MDRD (S/P/Bld) [Vol rate/Area]17 mL/min/{1.73_m2}Low>=60 mL/min/1.73m 2FUniversity Hospitals TriPoint Medical CenterGlucose [Mass/Vol]99 mg/hA31-884 [facility] For RehabilitationIron [Mass/Vol]40.0 ug/dLLow50.0-170.0[facility] For RehabilitationMagnesium [Mass/Vol]0.6 mg/dLCritically low1.8-2.4 [facility] For RehabilitationComment on above:RESULTS CALLED TOPotassium [Moles/Vol]3.2 mmol/LLow3.5-5.1FCleveland Clinic Avon Hospitalodium [Moles/Vol]141 mmol/F947-348IlvdyrbvgCleveland Clinic Children'S Hospital For RehabilitationUrate [Mass/Vol]8.1 mg/dLHigh2.6-6.0[facility] For RehabilitationUrea nitrogen [Mass/Vol]65.0 mg/dLHigh7.0-18.0[facility] For RehabilitationUrea nitrogen/Creatinine [Mass ratio]20.3 mg/mgCleveland Clinic Children'S Hospital For RehabilitationLeukocytes [#/volume] corrected for nucleated erythrocytes in Blood by Automated counOrdered By: Elsy Patino on 14-87-3678JIS corrected for nucl RBC Auto (Bld) [#/Vol]4.3 10 3/uL 4.0-11.0[facility] HospitalH Auto (RBC) [Entitic mass]Ordered By: Elsy Patino on 94-24-9813HYN (RBC) [Entitic mass]29.0 pg26.7-34.0[facility] HospitalHC Auto (RBC) [Mass/Vol]Ordered By: Elsy Patino on 09-44-3470EPCN (RBC) [Mass/Vol]34.0 g/dL29.9-35.2FUniversity Hospitals TriPoint Medical CenterMCV Auto (RBC) [Entitic vol]Ordered By: Elsy Patino on 60-87-2789GDI (RBC) [Entitic vol]85.4 fL81.0-99.0[facility] For RehabilitationNo Panel InformationOrdered By: Elsy Patino on 856830-Knbcfil Vitamin D Total28.8 ng/mLCleveland Clinic Children'S Hospital For RehabilitationComment on above:<20 ng/mL Vit D kxyevvvca73-<30 ng/mL Vit D exnxlkubhtfc32-150 ng/mL Vit D sufficient>100 ng/mL Potential ToxicityFolate4.80 ng/mLLow8.60-58.90[facility] Parathyroid Hormone (Intact)77 pg/gVRpxtkdkk08-91MmrkddhhkCleveland Clinic Children'S Hospital For RehabilitationComment on above:Performed at: - [facility] [id number] Director: Raul Medel PhD, Phone: [phone] Phosphorus Level4.2 mg/dL2.6-4.7FUniversity Hospitals TriPoint Medical CenterPlatelet mean volume Auto (Bld) [Entitic vol]Ordered By: Elsy Patino on 68-65-9630Euzpexcq mean volume (Bld) [Entitic vol]10.7 fL9.5-13.5FUniversity Hospitals TriPoint Medical Center Platelets Auto (Bld) [#/Vol]Ordered By: lEsy Patino on 20-58-4278Zlwatjftc (Bld) [#/Vol]181 10 3/yV519-747UetzidllwCleveland Clinic Children'S Hospital For RehabilitationRBC Auto (Bld) [#/Vol]Ordered By: Elsy Patino on 63-03-2812DSF (Bld) [#/Vol]3.14 10 6/uLLow 4.20-5.40[facility] Ohioerum or plasma anion gap determinationOrdered By: Elsy Patino on 77-73-7619Toqnj gap [Moles/Vol]16.3 mmol/LFUniversity Hospitals TriPoint Medical CenterCOMPREHENSIVE METABOLIC PANELon 86-14-7682Ydlgbwf [Mass/Vol]3.7 g/dLNormal3.6-5.1Quest DiagnosticsComment on above:Performed By: #### [id number] #### [facility] of [place] [address] Yard Foreman: Figueroa Jacques MDAlbumin/Globulin [Mass ratio]1.6 {ratio}Normal 1.0-2.5Quest DiagnosticsComment on above:Performed By: #### [id number] #### [facility] [place] [address] Yard Foreman: Figueroa Jacques MDALP [Catalytic activity/Vol]24 U/MDuy19-839 [facility] DiagnosticsComment on above:Performed By: #### [id number] #### [facility] [place] [address] Yard Foreman: Figueroa Jacques MDALT [Catalytic activity/Vol]8 U/LNormal6-29 [facility] DiagnosticsComment on above:Performed By: #### [id number] #### [facility] [place] [address] Yard Foreman: Figueroa Jacques MDAST [Catalytic activity/Vol]32 U/CChxgef11-71 [facility] DiagnosticsComment on above:Performed By: #### [id number] #### [facility] [place] [address] Yard Foreman: Figueroa Jacques MDBilirubin [Mass/Vol]0.7 mg/dLNormal0.2-1.2 [facility] DiagnosticsComment on above:Performed By: #### [id number] #### [facility] of [address], [address] [place] [address] Yard Foreman: Figueroa Jacques MDCalcium [Mass/Vol]6.6 mg/dLLow8.6-10.4Quest DiagnosticsComment on above:Performed By: #### [id number] #### [facility] of [place] [address] Yard Foreman: Figueroa Jacques MDChloride [Moles/Vol]103 mmol/PQidodl91-133 [facility] DiagnosticsComment on above:Performed By: #### [id number] #### [facility] of [address], [address] [place] [address] Yard Foreman: Figueroa Jacques MDCO2 [Moles/Vol]24 mmol/GIejdpo19-79Ghzcu DiagnosticsComment on above:Performed By: #### [id number] #### [facility] of [place] [address] Yard Foreman: Figueroa OCHOAreatinine [Mass/Vol]3.66 mg/dLHigh0.60-1.00 Quest DiagnosticsComment on above:Performed By: #### [id number] #### [facility] [place] [address] Yard Foreman: Figueroa Jacques MDGFR/1.73 sq M.predicted among non-blacks MDRD (S/P/Bld) [Vol rate/Area]12 mL/min/{1.73_m2}Low> OR = 60Quest DiagnosticsComment on above:Performed By: #### [id number] #### [facility] [place] [address] Yard Foreman: Figueroa Jacques MDGlobulin (S) [Mass/Vol]2.3 g/dLNormal1.9-3.7 [facility] DiagnosticsComment on above:Performed By: #### [id number] #### [facility] [place] [address] Yard Foreman: Figueroa Jacques MDGlucose [Mass/Vol]124 mg/mQSmfw51-09Prgvz DiagnosticsComment on above:Result Comment: Fasting reference interval For someone without known diabetes, a glucose value between 100 and 125 mg/dL is consistent with prediabetes and should be confirmed with a follow-up test.Performed By: #### [id number] #### [facility] [place] [address] Yard Foreman: Figueroa Jacques MDPotassium [Moles/Vol]3.3 mmol/LLow3.5-5.3Quest DiagnosticsComment on above:Performed By: #### [id number] #### [facility] [place] [address] Yard Foreman: Figueroa Jacques MDProtein [Mass/Vol]6.0 g/dLLow6.1-8.1Quest DiagnosticsComment on above:Performed By: #### [id number] #### [facility] [place] [address] Yard Foreman: Figueroa Jacques MDSodium [Moles/Vol]140 mmol/UXsjuub861-815Jxsjc DiagnosticsComment on above:Performed By: #### [id number] #### [facility] [place] [address] Yard Foreman: Figueroa Jacques MDUrea nitrogen [Mass/Vol]72 mg/dLHigh7-25Quest DiagnosticsComment on above:Performed By: #### [id number] #### [facility] [place] [address] Yard Foreman: Figueroa Jacques MDUrea nitrogen/Creatinine [Mass ratio]20 mg/mg Normal6-22Quest DiagnosticsComment on above:Performed By: #### [id number] #### [facility] [place] [address] Yard Foreman: Figueroa Jacques MDLaboratory - Chemistry and Chemistry - challenge [id number] [Mass/Vol]3.7 g/dL3.6 - 5.1 g/dLNOMS Healthcare Albumin/Globulin [Mass ratio]1.6 {ratio}NOMS HealthcareALP [Catalytic activity/Vol]24 U/LLow37 - 153 U/LNOMS HealthcareALT [Catalytic activity/Vol]8 U/L6 - 29 U/LNOMS HealthcareAST [Catalytic activity/Vol]32 U/L10 - 35 U/LNOMS HealthcareBilirubin [Mass/Vol]0.7 mg/dL0.2 - 1.2 mg/dLNONV HealthcareCalcium [Mass/Vol]6.6 mg/dLLow8.6 - 10.4 mg/dLSelect Specialty HospitalChloride [Moles/Vol]103 mmol/L98 - 110 mmol/LNOMS HealthcareCO2 [Moles/Vol]24 mmol/L20 - 32 mmol/LNOMS HealthcareCreatinine [Mass/Vol]3.66 mg/dLHigh0.60 - 1.00 mg/dLNOSac-Osage Hospital GFR/1.73 sq M.predicted among non-blacks MDRD (S/P/Bld) [Vol rate/Area]12 mL/min/{1.73_m2}Low> OR = 60 mL/min/1.70t2NRINSelect Specialty HospitalGlobulin (S) [Mass/Vol] 2.3 g/dLSelect Specialty HospitalGlucose [Mass/Vol]124 mg/eYDiws90 - 99 mg/dLSelect Specialty HospitalComment on above: Fasting reference interval For someone without known diabetes, a glucose value between 100 and 125 mg/dL is consistent with prediabetes and should be confirmed with a follow-up test. Potassium [Moles/Vol]3.3 mmol/LLow3.5 - 5.3 mmol/LNOMS HealthcareProtein [Mass/Vol]6.0 g/dLLow6.1 - 8.1 g/dLSelect Specialty HospitalSodium [Moles/Vol]140 mmol/L 135 - 146 mmol/LNOMS HealthcareUrea nitrogen [Mass/Vol]72 mg/dLHigh7 - 25 mg/dL [facility] HealthcareUrea nitrogen/Creatinine [Mass ratio]20 mg/mgNOSac-Osage HospitalNo Panel Informationon [id number] and review of laboratory results AbnormalNOSac-Osage HospitalPerforming Organization Information Site ID: QPT Name: [facility] Address: [address] [place] [address], [address] [place] [id number] Director: Figueroa Jacques MDNONV HealthcareNOMS HealthcareALL PRO BNPon 06-09-2025 NT PRO B TYPE NATRIURETIC [id number] pg/mLCritically highNINF - 1800.0 pg/mLNOMS HealthcareComment on above:RESULTS CALLED TO PEPE FISHER CMP (CMP) (FOR REMOTE [facility] USE)on [id number] [Mass/Vol]3.4 g/dL3.4 - 5.0 g/dLNOMS HealthcareALBUMIN GLOBULIN RATIO0.9NOMS HealthcareALP [Catalytic activity/Vol]30 U/LLow46 [...] mmol/L136 - 145 mmol/LNOMS HealthcareTBH EGFR-NON AF ZIJZQCGG06Suz>=60 mL/min/1.73m 2NOMS HealthcareUrea nitrogen [Mass/Vol]64 mg/dLHigh7.0 - 18.0 mg/dLNOSac-Os[facility] Hospital Urea nitrogen/Creatinine [Mass ratio]16.8 mg/mgNOSac-Osage HospitalNo Panel Informationon [id number] and review of laboratory resultsAbnormal NOMS HealthcareCLINISYNCNOMS HealthcareTSH W/REFLEX T4on [id number] Qn4.13 m[IU]/LHHighland Hospital HealthcareBasic Metabolic Panelon [id number] gap [Moles/Vol]10.5 mmol/LNormal6.0-15.0The [facility] Physician GroupComment on above:Performed By: #### BMP, CBC ####[place] [address] USACalcium [Mass/Vol]8.5 mg/dLLow8.6-10.3The [facility] Physician [facility] CenterComment on above:Performed By: #### BMP, CBC ####[place] [address] USAChloride [Moles/Vol] 103 mmol/CQrqruh12-875Prl [facility] Physician [facility] CenterComment on above:Performed By: #### BMP, CBC ####[place] [address] USACO2 [Moles/Vol]27.0 mmol/PWakcxm84.0-31.0The [facility] Physician [facility] CenterComment on above:Performed By: #### BMP, CBC ####[place] [id number] USACreatinine [Mass/Vol]4.15 mg/dLHigh 0.60-1.20The [facility] Physician [facility] CenterComment on above:Performed By: #### BMP, CBC ####[place] [id number] [place] Creatinine Clr Calc Ktwniibx16.14NormAdventHealth D[facility] Physician [facility] Medical CenterComment on above:Result Comment: PERFORMED BY: [facility] [address] [facility] [place] [address] PATHOLOGIST COMPOSITION MIXER ELIZABETH MOREL M.D.Performed By: #### BMP, CBC ####[address] [address] USAGFR/1.73 sq M.predicted MDRD (S/P/Bld) [Vol rate/Area]10.650 mL/min/{1.73_m2}NormalThe [facility] Comment on above:Performed By: #### BMP, CBC ####[place] [id number] USAGlucose [Mass/Vol]136 mg/iERtag39-039 The [facility] Physician GroupComment on above:Result Comment: Random Glucose Reference Range is dependent on time and content of last meal. Glucose of more than 200 mg/dL in a nonstressed, ambulatory subject supports the diagnosis of Diabetes Mellitus. ADA recommended reference rangePerformed By: #### BMP, CBC ####[place] [address] USAPotassium [Moles/Vol] 3.5 mmol/LNormal3.5-5.1The [facility] Physician GroupComment on above:Performed By: #### BMP, CBC ####[place] [address] USASodium [Moles/Vol]137 mmol/YFrdpsz001-190Tyd [facility] Physician GroupComment on above:Performed By: #### BMP, CBC ####[place] [id number] USAUrea nitrogen [Mass/Vol]61 mg/dLHigh 7-25The [facility] Physician GroupComment on above:Performed By: #### BMP, CBC ####[address] Complete Blood Count Auto Diffon [id number] (Bld) [#/Vol]0.0 10*3/uL Normal0.0-0.2The [facility] Physician GroupComment on above:Result Comment: PERFORMED BY: [facility] [address] [id number] PATHOLOGIST COMPOSITION MIXER ELIZABETH MOREL M.D.Performed By: #### BMP, CBC ####[place] [address] USABasophils/100 WBC (Bld)0.7 %Normal.The [facility] Physician GroupComment on above:Performed By: #### BMP, CBC ####[place] [address] [place] Eosinophils (Bld) [#/Vol]0.2 10*3/uLNormal0.0-0.45The [facility] Comment on above:Performed By: #### BMP, CBC ####[place] [address] USAEosinophils/100 WBC (Bld)3.3 %Normal. The [facility] Physician GroupComment on above:Performed By: #### BMP, CBC ####[place] [address] [place] Erythrocyte distribution width (RBC) [Ratio]16.4 %High11.9-15.3The [facility] Physician GroupComment on above:Performed By: #### BMP, CBC ####[place] [address] USAHematocrit (Bld) [Volume fraction]27.2 %Low34.0-46.4The [facility] Physician GroupComment on above:Performed By: #### BMP, CBC ####[place] [address] USAHemoglobin (Bld) [Mass/Vol]9.0 g/dLLow11.8-15.4The [facility] Physician GroupComment on above:Performed By: #### BMP, CBC ####[place] [address] [place] Lymphocytes (Bld) [#/Vol]0.8 10*3/uLLow1.00-4.8The [facility] Comment on above:Performed By: #### BMP, CBC ####[place] [address] USALymphocytes/100 WBC (Bld)14.9 %Normal. The [facility] Physician GroupComment on above:Performed By: #### BMP, CBC ####[address] [address] [facility] (RBC) [Entitic mass]29.1 qgJidtrl63.7-34.3The [facility] Physician GroupComment on above:Performed By: #### BMP, CBC ####[address] [address] HOSPITALMCV (RBC) [Entitic vol]88.3 tQRagjnr29-364Reo [facility] Physician GroupComment on above:Performed By: #### BMP, CBC ####[place] [address] USAMean Corpuscular HGB Conc33.0 g/fJPyfpuw77.0-35.0The [facility] Physician GroupComment on above:Performed By: #### BMP, CBC ####[place] [address] USAMonocytes (Bld) [#/Vol]0.5 10*3/uLNormal 0.0-0.8The [facility] Physician GroupComment on above:Performed By: #### BMP, CBC ####[place] [address] [place] Monocytes/100 WBC (Bld)9.1 %Normal.The [facility] Physician GroupComment on above:Performed By: #### BMP, CBC ####[place] [address] USANeutrophils (Bld) [#/Vol]4.0 10*3/uLNormal1.8-7.7The [facility] Physician GroupComment on above:Performed By: #### BMP, CBC ####[place] [address] [place] Neutrophils/100 WBC (Bld)72.0 %Normal.The [facility] Physician GroupComment on above:Performed By: #### BMP, CBC ####[place] [address] USANRBC%0.1 /100{WBC}Normal0-0.5The [facility] Physician GroupComment on above:Performed By: #### BMP, CBC ####[place] [address] USAPlatelet mean volume (Bld) [Entitic vol]9.3 fLNormal6.3-10.7The [facility] Physician GroupComment on above: Performed By: #### BMP, CBC ####[place] [address] USAPlatelets (Bld) [#/Vol]176 10*3/kATdgxwx728-675Hsz [facility] Physician GroupComment on above:Performed By: #### BMP, CBC ####[place] [address] USARBC (Bld) [#/Vol]3.09 10*6/uLLow3.60-5.00The [facility] Physician GroupComment on above:Performed By: #### BMP, CBC ####[place] [address] USAWBC (Bld) [#/Vol]5.6 10*3/uLNormal3.8-11.6The [facility] Physician GroupComment on above:Performed By: #### BMP, CBC ####[place] [address] USAWhite Blood Count5.6 [CFU]/mLNormal3.8-11.6The [facility] Physician GroupComment on above:Performed By: #### BMP, CBC ####[place] [address] USABasic Metabolic Panelon 66-52-8628Vojdg gap [Moles/Vol]12.2 mmol/LNormal6.0-15.0The [facility] Physician GroupComment on above:Performed By: #### BMP #### [place] [address] USACalcium [Mass/Vol]8.4 mg/dLLow8.6-10.3The [facility] Physician GroupComment on above:Performed By: #### BMP #### [place] [address] USAChloride [Moles/Vol]106 mmol/BHdsbya71-128Mxh [facility] Physician GroupComment on above:Performed By: #### BMP #### [place] [address] USACO2 [Moles/Vol]25.2 mmol/FLqpwkg32.0-31.0The [facility] Physician GroupComment on above:Performed By: #### BMP #### [place] [address] USACreatinine [Mass/Vol]3.69 mg/dLHigh0.60-1.20The [facility] Physician GroupComment on above:Performed By: #### BMP #### [place] [address] USACreatinine Clr Calc Kqygvcgt45.26NormalThMadison Memorial Hospital Physician GroupComment on above:Result Comment: PERFORMED BY: [place] [address] PATHOLOGIST COMPOSITION MIXER ELIZABETH MOREL M.D.Performed By: #### BMP #### [place] [address] USAGFR/1.73 sq M.predicted MDRD (S/P/Bld) [Vol rate/Area] 12.263 mL/min/{1.73_m2}NormalThe On License Of [facility] Physician GroupComment on above: Performed By: #### BMP #### [place] [address] USAGlucose [Mass/Vol]79 mg/vFLncufk45-676Nzz [facility] Physician GroupComment on above:Result Comment: Random Glucose Reference Range is dependent on time and content of last meal. Glucose of more than 200 mg/dL in a nonstressed, ambulatory subject supports the diagnosis of Diabetes Mellitus. ADA recommended reference rangePerformed By: #### BMP #### [place] [address] USAPotassium [Moles/Vol]3.4 mmol/LLow3.5-5.1The [facility] Physician GroupComment on above:Performed By: #### BMP #### [address] [place] [address] USASodium [Moles/Vol]140 mmol/OOmbrun505-211Imy [facility] Physician GroupComment on above:Performed By: #### BMP #### [facility] [address] [place] [address] USAUrea nitrogen [Mass/Vol]62 mg/dLHigh7-25The [facility] Physician [facility] CenterComment on above:Performed By: #### BMP #### [facility] [address] [place] [address] USACreatinine, Urine (Random)on 10-83-1053Hureellrnv, Urine (Random)61.00 mg/dLNormalThe [facility] Physician [facility] CenterComment on above:Result Comment: No reference range establishedPerformed By: #### UCJUDAH, URTP ####[address] Pathology Request for Lab Corpon [id number] Request for Lab CorpNormal The [facility] Physician [facility] Medical CenterComment on above:Order Comment: GI SPECIMENResult Comment: See report. Scanned copy available in EMR. PERFORMED BY: [place] [address] PATHOLOGIST COMPOSITION MIXER ELIZABETH MOREL M.D.Performed By: #### PATH TO [facility] ####[place] [id number] USATotal Protein, Urineon 24-64-1014Cjxcscb (U) [Mass/Vol]67 mg/dLHigh0-9The [facility]ician Group Comment on above:Result Comment: PERFORMED BY: [place] [address] PATHOLOGIST COMPOSITION MIXER ELIZABETH MOREL M.D.Performed By: #### UCREA, URTP ####[place] [id number] USAComplete Blood Count Auto Diff on [id number] (Bld) [#/Vol]0.0 10*3/uLNormal0.0-0.2The [facility] Physician GroupComment on above:Result Comment: PERFORMED BY: [facility] [address] [place] [address] PATHOLOGIST COMPOSITION MIXER ELIZABETH MOREL M.D.Performed By: #### MG, PT, CMP, PHOS, CBC, PTT ####[address] Basophils/100 WBC (Bld)1.0 %Normal.The [facility] Physician GroupComment on above:Performed By: #### MG, PT, CMP, PHOS, CBC, PTT ####[place] [address] USAEosinophils (Bld) [#/Vol]0.2 10*3/uLNormal0.0-0.45The [facility] Physician GroupComment on above:Performed By: #### MG, PT, CMP, PHOS, CBC, PTT ####[place] [address] USAEosinophils/100 WBC (Bld)4.2 %Normal.The [facility] Physician GroupComment on above:Performed By: #### MG, PT, CMP, PHOS, CBC, PTT ####[address] Erythrocyte distribution width (RBC) [Ratio]16.3 %High11.9-15.3The [facility] Physician GroupComment on above:Performed By: #### MG, PT, CMP, PHOS, CBC, PTT ####[address] Hematocrit (Bld) [Volume fraction]24.8 %Low34.0-46.4The [facility] Physician GroupComment on above:Performed By: #### MG, PT, CMP, PHOS, CBC, PTT ####[address] Hemoglobin (Bld) [Mass/Vol]8.4 g/dLLow11.8-15.4The [facility] Comment on above:Performed By: #### MG, PT, CMP, PHOS, CBC, PTT ####[place] [address] USALymphocytes (Bld) [#/Vol]1.2 10*3/uLNormal1.00-4.8The [facility] Physician GroupComment on above: Performed By: #### MG, PT, CMP, PHOS, CBC, PTT ####[place] [address] USALymphocytes/100 WBC (Bld)29.3 %Normal. The [facility] Physician GroupComment on above:Performed By: #### MG, PT, CMP, PHOS, CBC, PTT ####[address] (RBC) [Entitic mass]29.7 wiCqqibu89.7-34.3The [facility] Physician GroupComment on above:Performed By: #### MG, PT, CMP, PHOS, CBC, PTT ####[address] (RBC) [Entitic vol]88.2 oZAbveeu34-820Sai [facility] Physician GroupComment on above:Performed By: #### MG, PT, CMP, PHOS, CBC, PTT ####[place] [address] USAMean Corpuscular HGB Conc33.7 g/pWEkjjbj13.0-35.0The [facility] Physician GroupComment on above:Performed By: #### MG, PT, CMP, PHOS, CBC, PTT ####[place] [address] USAMonocytes (Bld) [#/Vol]0.5 10*3/uLNormal0.0-0.8The [facility] Physician GroupComment on above:Performed By: #### MG, PT, CMP, PHOS, CBC, PTT ####[place] [address] USAMonocytes/100 WBC (Bld)12.9 %Normal.The [facility] Physician GroupComment on above:Performed By: #### MG, PT, CMP, PHOS, CBC, PTT ####[place] [address] USANeutrophils (Bld) [#/Vol]2.1 10*3/uLNormal1.8-7.7The [facility] Physician GroupComment on above:Performed By: #### MG, PT, CMP, PHOS, CBC, PTT ####[place] [address] USANeutrophils/100 WBC (Bld)52.6 %Normal.The [facility] Physician GroupComment on above:Performed By: #### MG, PT, CMP, PHOS, CBC, PTT ####[place] [address] USANRBC% 0.1 /100{WBC}Normal0-0.5The [facility] Physician GroupComment on above:Performed By: #### MG, PT, CMP, PHOS, CBC, PTT ####[place] [address] USAPlatelet mean volume (Bld) [Entitic vol]9.2 fL Normal6.3-10.7The [facility] Physician GroupComment on above:Performed By: #### MG, PT, CMP, PHOS, CBC, PTT ####[place] [address] USAPlatelets (Bld) [#/Vol]188 10*3/eTAdgses940-784Sbf [facility] Physician GroupComment on above:Performed By: #### MG, PT, CMP, PHOS, CBC, PTT ####[place] [address] USARBC (Bld) [#/Vol]2.81 10*6/uLLow3.60-5.00The [facility] Physician GroupComment on above:Performed By: #### MG, PT, CMP, PHOS, CBC, PTT ####[place] [address] USAWBC (Bld) [#/Vol]4.1 10*3/uL Normal3.8-11.6The [facility] Physician GroupComment on above:Performed By: #### MG, PT, CMP, PHOS, CBC, PTT ####[place] [address] USAWhite Blood Count4.1 [CFU]/mLNormal3.8-11.6The [facility] Physician GroupComment on above:Performed By: #### MG, PT, CMP, PHOS, CBC, PTT ####[place] [address] USAComprehensive Metabolic Panelon 09-47-4771Kmcwqis [Mass/Vol]3.3 g/dLLow 3.5-5.7The [facility] Physician GroupComment on above:Performed By: #### MG, PT, CMP, PHOS, CBC, PTT ####[place] [address] USAAlbumin/Globulin [Mass ratio]1.4 {ratio}NormalThe On License Of [facility] Physician GroupComment on above:Performed By: #### MG, PT, CMP, PHOS, CBC, PTT ####[place] [address] USAALP [Catalytic activity/Vol]29 U/XKyl53-548Jqj [facility] Physician [facility] CenterComment on above:Performed By: #### MG, PT, CMP, PHOS, CBC, PTT ####[place] [address] USAALT [Catalytic activity/Vol]4 U/LLow7-52The [facility] Physician GroupComment on above:Performed By: #### MG, PT, CMP, PHOS, CBC, PTT ####[address] [address] USAAnion gap [Moles/Vol]11.2 mmol/LNormal6.0-15.0The [facility] Physician GroupComment on above:Performed By: #### MG, PT, CMP, PHOS, CBC, PTT ####[place] [address] USAAST [Catalytic activity/Vol]17 U/VQkqpiy55-88Sbc [facility] Physician GroupComment on above:Performed By: #### MG, PT, CMP, PHOS, CBC, PTT ####[place] [address] USABilirubin [Mass/Vol]0.5 mg/dL Normal0.3-1.0The [facility] Physician GroupComment on above:Performed By: #### MG, PT, CMP, PHOS, CBC, PTT ####[place] [address] USACalcium [Mass/Vol]8.2 mg/dLLow8.6-10.3The [facility] Physician GroupComment on above:Performed By: #### MG, PT, CMP, PHOS, CBC, PTT ####[place] [address] [place] Chloride [Moles/Vol]105 mmol/QVnvalc20-808Uyi [facility] Physician GroupComment on above:Performed By: #### MG, PT, CMP, PHOS, CBC, PTT ####[place] [address] USACO2 [Moles/Vol]26.6 mmol/L Bwmuac11.0-31.0The [facility] Physician GroupComment on above:Performed By: #### MG, PT, CMP, PHOS, CBC, PTT ####[place] [address] USACreatinine [Mass/Vol]3.53 mg/dLHigh0.60-1.20The [facility] Physician GroupComment on above:Performed By: #### MG, PT, CMP, PHOS, CBC, PTT ####[place] [address] USACreatinine Clr Calc Excniibo43.77NormalThMadison Memorial Hospital Physician GroupComment on above:Performed By: #### MG, PT, CMP, PHOS, CBC, PTT ####[place] [address] USAGFR/1.73 sq M.predicted MDRD (S/P/Bld) [Vol rate/Area]12.933 mL/min/{1.73_m2}NormalThe On [facility] Physician GroupComment on above:Performed By: #### MG, PT, CMP, PHOS, CBC, PTT ####[place] [address] [place] Globulin (S) [Mass/Vol]2.4 g/dLNormalThe [facility] Physician GroupComment on above:Performed By: #### MG, PT, CMP, PHOS, CBC, PTT ####[place] [address] USAGlucose [Mass/Vol]77 mg/dL Bxfgcl75-754Jkv [facility] Physician GroupComment on above:Result Comment: Random Glucose Reference Range is dependent on time and content of last meal. Glucose of more than 200 mg/dL in a nonstressed, ambulatory subject supports the diagnosis of Diabetes Mellitus. ADA recommended reference rangePerformed By: #### MG, PT, CMP, PHOS, CBC, PTT ####[place] [address] [place] Potassium [Moles/Vol]3.8 mmol/LNormal3.5-5.1The [facility] Physician GroupComment on above:Performed By: #### MG, PT, CMP, PHOS, CBC, PTT ####[place] [address] USAProtein [Mass/Vol]5.7 g/dLLow 6.4-8.9The [facility] Physician GroupComment on above:Performed By: #### MG, PT, CMP, PHOS, CBC, PTT ####[place] [address] USASodium [Moles/Vol]139 mmol/KGcmpek034-701Jrg [facility] Physician GroupComment on above:Performed By: #### MG, PT, CMP, PHOS, CBC, PTT ####[place] [address] USAUrea nitrogen [Mass/Vol]64 mg/dLHigh7-25The [facility] Physician GroupComment on above:Performed By: #### MG, PT, CMP, PHOS, CBC, PTT ####[facility] [address] [place] [address] [facility] echo transthoracicon 88-04-6895HLS echo transthoracicOHIO STATE HEALTH SYSTEM [address] [place] [address] [place] [address] Echocardiogram Signed Patient: Marleni Dennis MR#: [id number] : 1950 Acct:[id number] Age/Sex: 74 / F ADM Date: 04/08/25 Loc: Room: [address] [place] [address] Type: ADM IN Attending Dr: Nick Antonio [...] GARCIA MD on (more content not included)...NormalThe [facility] Physician GroupMagnesiumon 79-45-9288Yfescdhup [Mass/Vol]1.1 mg/dLLow1.9-2.7The [facility] Physician [facility] CenterComment on above: Result Comment: PERFORMED BY: [place] [id number] PATHOLOGIST COMPOSITION MIXER ELIZABETH MOREL M.D.Performed By: #### MG, PT, CMP, PHOS, CBC, PTT ####[place] [id number] USAPartial Thromboplastin Timeon 50-44-1065vJGJ Coag (Bld) [Time]31.2 eDmfvpp15.1-36.5The [facility] Physician [facility] CenterComment on above:Result Comment: A hematocrit value greater than 55% may lead to inaccurate results in coagulation testing. Patients having hematocrit values >55% require a special collection tube for coagulation studies. Please contact the laboratory at [phone] for redraw instructions. PERFORMED BY: [place] [address] PATHOLOGIST COMPOSITION MIXER ELIZABETH MOREL M.D.Performed By: #### MG, PT, CMP, PHOS, CBC, PTT ####[place] [id number] [facility] Phosphoruson 89-85-5088Idsrdfplk [Mass/Vol]3.2 mg/dLNormal2.5-4.5The [facility] HospitalComment on above:Performed By: #### MG, PT, CMP, PHOS, CBC, PTT ####[place] [id number] [facility] Prothrombin Time INRon 97-89-5159PBJ Coag (PPP) [Relative time]1.3 {INR}Normal [facility] HospitalComment on above:Result Comment: INR Therapeutic Range A) [...] #### MG, PT, CMP, PHOS, CBC, PTT ####[facility] [place] [address] USAPT Coag (PPP) [Time]15.2 sHigh9.0-12.9The On License Of [facility] Physician GroupComment on above:Result Comment: A hematocrit value greater than 55% may lead to inaccurate results in coagulation testing. Patients having hematocrit values >55% require a special collection tube for coagulation studies. Please contact the laboratory at [phone] for redraw instructions.Performed By: #### MG, PT, CMP, PHOS, CBC, PTT ####[facility] [place] [address] USAAlanine aminotransferase [Enzymatic activity/volume] in Serum or PlasmaOrdered By: Sohail Figueroa on 94-98-0893SCE [Catalytic activity/Vol]6 U/LLow7-52[facility] For RehabilitationComment on above:Performed By: #### PT, PTT, LIPASE, CMP, HS TROP, CBC #### [facility] [address] [place] [address] USAAlbumin [Mass/volume] in Serum or Plasma by Bromocresol green (BCG) dye binding methoOrdered By: Sohail Figueroa on 63-72-0303Rcyjzso BCG dye [Mass/Vol]4.1 g/dL3.5-5.7FUniversity Hospitals TriPoint Medical CenterAlkaline phosphatase [Enzymatic activity/volume] in Serum or PlasmaOrdered By: Sohail Figueroa on 43-55-4489QYR [Catalytic activity/Vol]38 U/LCicxrd51-005KodeisczxCleveland Clinic Children'S Hospital For RehabilitationComment on above:Performed By: #### PT, PTT, LIPASE, CMP, HS TROP, CBC #### [facility] [address] [place] [id number] USAAppearance of UrineOrdered By: Sohail Figueroa on 04-08-2025 Appearance (U)ClearNormalClearCleveland Clinic Children'S Hospital For RehabilitationComment on above: Order Comment: Name Collection Type:: Clean-Voided MidstreamPerformed By: #### ADDONUAPLUS ####[address] [place] [address] USAAspartate aminotransferase [Enzymatic activity/volume] in Serum or PlasmaOrdered By: Sohail Figueroa on 88-22-2953ARL [Catalytic activity/Vol]22 U/L Mxjyqi91-50UwzpvmuotCleveland Clinic Children'S Hospital For RehabilitationComment on above:Performed By: #### PT, PTT, LIPASE, CMP, HS TROP, CBC #### [facility] [address] [place] [address] USABNP ser/plasOrdered By: Sohail Figueroa on 04-08-2025 Natriuretic peptide B (Bld) [Mass/Vol]1455.0 pg/mLHigh5-100[facility] For RehabilitationComment on above:Result Comment: PERFORMED BY: [place] [address] PATHOLOGIST COMPOSITION MIXER ELIZABETH MOREL M.D.Performed By: #### BNP ####[address] [address] USABacteria [Presence] in Urine by AutomatedOrdered By: Sohail Figueroa on 69-14-0320Xbhyydrq Auto Ql (U)None seen [HPF]None SeenCleveland Clinic Children'S Hospital For RehabilitationBasophils [#/volume] in Blood by Automated countOrdered By: Sohail Figueroa on 71-96-9660Aveangtag (Bld) [#/Vol]0.0 10*3/uLNormal0.0-0.2FUniversity Hospitals TriPoint Medical CenterComment on above:Result Comment: PERFORMED BY: [facility] [address] [place] [address] PATHOLOGIST COMPOSITION MIXER ELIZABETH MOREL M.D.Performed By: #### PT, PTT, LIPASE, CMP, HS TROP, CBC #### [facility] [address] [place] [address] USABasophils/100 leukocytes in Blood by Automated count Ordered By: Sohail Figueroa on 97-35-4936Vmhipccsx/100 WBC (Bld)1.0 %Normal. [facility] Hospital For RehabilitationComment on above:Performed By: #### PT, PTT, LIPASE, CMP, HS TROP, CBC #### [facility] [address] [place] [address] USABilirubin Test strip Ql (U)Ordered By: Sohail Figueroa on 69-51-2530Mijnemqgq Ql (U)NegativeNegativeCleveland Clinic Children'S Hospital For Rehabilitation Bilirubin.total [Mass/volume] in Serum or PlasmaOrdered By: Sohail Figueroa on 50-04-4776Eosimsrfz [Mass/Vol]0.6 mg/dLNormal0.3-1.0[facility] For RehabilitationComment on above:Performed By: #### PT, PTT, LIPASE, CMP, HS TROP, CBC #### [facility] [address] [place] [address] USACT abdomen pelvis wo conon 72-53-6012SC abdomen pelvis wo [facility] Main [place] [address] [place] [address] CT Scan Report Signed Patient: Marleni Dennis MR#: [id number] : 1950 Acct:[id number] Age/Sex: 74 / F ADM Date: 04/08/25 Loc: ER Room: Type: [facility] ER Attending Dr: Copies to: Sohail [...] Garnett M.D. 04/08/2025 8:27 PM Dictation Location: [place] [address] Transcribed By: [facility] 04/08/252026 Dictated By: Derek Garnett DO 04/08/252018 Signed By: 04/08/252026[facility] Physician GroupCalcium [Mass/volume] in Serum or PlasmaOrdered By: Sohail Figueroa on 12-01-0668Imxbcdr [Mass/Vol]9.1 mg/dLNormal 8.6-10.3FUniversity Hospitals TriPoint Medical CenterComment on above:Performed By: #### PT, PTT, LIPASE, CMP, HS TROP, CBC #### [facility] [address] [place] [address] USACarbon dioxide, total [Moles/volume] in Serum or Plasma Ordered By: Sohail Figueroa on 47-38-0896OX4 [Moles/Vol]25.2 mmol/BRadbdz63.0-31.0 [facility] For RehabilitationComment on above:Performed By: #### PT, PTT, LIPASE, CMP, HS TROP, CBC #### [facility] [address] [place] [address] USAChloride [Moles/volume] in Serum or PlasmaOrdered By: Sohail Figueroa on 33-14-6382Vllvkzgm [Moles/Vol]101 mmol/IXoflon07-222UjqyjhyifCleveland Clinic Children'S Hospital For RehabilitationComment on above:Performed By: #### PT, PTT, LIPASE, CMP, HS TROP, CBC #### [facility] [address] [place] [address] USAColor of Urine by AutoOrdered By: Sohail Figueroa on 16-76-0047Fkqfp (U)Light-yellowNormalYellowCleveland Clinic Children'S Hospital For Rehabilitation Comment on above:Order Comment: Name Collection Type:: Clean-Voided Midstream Performed By: #### ADDONUAPLUS ####[facility] [place] [address] USAComplete Blood Count Auto Diffon 69-06-4310Cvai Corpuscular HGB Conc34.0 g/gJOsyqfi76.0-35.0The On License Of [facility] Physician GroupComment on above:Performed By: #### PT, PTT, LIPASE, CMP, HS TROP, CBC #### [place] [address] USAMonocytes/100 WBC (Bld)17.55 %Normal0.00-20.00The On License Of [facility] Physician GroupComment on above:Performed By: #### PT, PTT, LIPASE, CMP, HS TROP, CBC #### [place] [address] USANRBC%0.1 /100{WBC}Normal0-0.5The On License Of [facility] Comment on above:Performed By: #### PT, PTT, LIPASE, CMP, HS TROP, CBC #### [place] [address] USAWhite Blood Count4.4 [CFU]/mLNormal3.8-11.6The On License Of [facility] Physician GroupComment on above:Performed By: #### PT, PTT, LIPASE, CMP, HS TROP, CBC #### [place] [address] USAComprehensive Metabolic Panelon 87-66-8522Igoelle [Mass/Vol]4.1 g/dLNormal3.5-5.7The On License Of [facility] Physician GroupComment on above: Performed By: #### PT, PTT, LIPASE, CMP, HS TROP, CBC #### [address] [place] [address] USACreatinine Clr Calc Lgjnfvwk75.34NormAdventHealth Dade City Physician GroupComment on above:Performed By: #### PT, PTT, LIPASE, CMP, HS TROP, CBC #### [facility] [address] [place] [address] USAGFR/1.73 sq M.predicted MDRD (S/P/Bld) [Vol rate/Area] 13.433 mL/min/{1.73_m2}NormalThe On License Of [facility] Physician GroupComment on above: Performed By: #### PT, PTT, LIPASE, CMP, HS TROP, CBC #### [facility] [address] [place] [address] USACreatinine [Mass/volume] in Serum or PlasmaOrdered By: Sohail Figueroa on 17-45-4518Lvwrwehodw [Mass/Vol]3.42 mg/dLHigh0.60-1.20[facility] For RehabilitationComment on above:Performed By: #### PT, PTT, LIPASE, CMP, HS TROP, CBC #### [facility] [address] [place] [address] USADipstick and Microscopicon 72-46-9339Vzkdiqct,UrineNone SeenNormalNone SeenThe On License Of [facility] Physician GroupComment on above:Order Comment: Name Collection Type:: Clean-Voided MidstreamPerformed By: #### ADDONUAPLUS ####[facility] [place] [address] [place] Bilirubin,UrineNegativeNormalNegativeThe On License Of [facility] Physician GroupComment on above:Order Comment: Name Collection Type:: Clean-Voided MidstreamPerformed By: #### ADDONUAPLUS ####[facility] [place] [address] USAGlucose Ql (U)NormalNormalNormAdventHealth Dade City Physician GroupComment on above:Order Comment: Name Collection Type:: Clean-Voided MidstreamPerformed By: #### ADDONUAPLUS ####[facility] [place] [address] USAHyaline Casts,UrineNoneNormal0-8The On License Of [facility] Physician GroupComment on above:Order Comment: Name Collection Type:: Clean- Voided MidstreamResult Comment: PERFORMED BY: [facility] [address] [place] [address] PATHOLOGIST COMPOSITION MIXER ELIZABETH MOREL M.D.Performed By: #### ADDONUAPLUS ####[address] [address] USANitrite,UrineNegativeNormal NegativeThe On License Of [facility] Physician GroupComment on above:Order Comment: Name Collection Type:: Clean-Voided MidstreamPerformed By: #### ADDONUAPLUS ####[address] [address] USAOccult Blood,UrineNegativeNormalNegativeThe On License Of [facility] Physician GroupComment on above: Order Comment: Name Collection Type:: Clean-Voided MidstreamResult Comment: PERFORMED BY: [facility] [address] [place] [address] PATHOLOGIST COMPOSITION MIXER ELIZABETH MOREL M.D.Performed By: #### ADDONUAPLUS ####[address] [address] USARBC,Izyvl7-7Nqaxnc9-8Aby On License Of [facility] Physician GroupComment on above:Order Comment: Name Collection Type:: Clean-Voided MidstreamPerformed By: #### ADDONUAPLUS ####[address] [address] USASpecificy Nesbit,Urine1.006 Normal1.001-1.030The On License Of [facility] Physician GroupComment on above:Order Comment: Name Collection Type:: Clean-Voided MidstreamPerformed By: #### ADDONUAPLUS ####[address] [address] [place] Urobilinogen,UrineNormalNormalNormalThe On License Of [facility] Physician GroupComment on above:Order Comment: Name Collection Type:: Clean-Voided MidstreamPerformed By: #### ADDONUAPLUS ####[address] [address] USAWBC,Vhksf9-4Laoquu1-9Hrf On License Of [facility] Physician GroupComment on above: Order Comment: Name Collection Type:: Clean-Voided MidstreamPerformed By: #### ADDONUAPLUS ####[facility] [address] [place] [address] USAECG 12 lead ECGon 12-28-3117CRU 12 lead ECGOHIO STATE HE[facility] SYSTEM Main [place] [address] [place] [address] Electrocardiograph Report Signed Patient: Marleni Dennis MR#: [id number] : 1950 Acct:[id number] Age/Sex: 74 / F ADM Date: 04/08/25 Loc: Room: [address] [place] [address] Type: ADM IN Attending Dr: Rajiv Trejo [...] fascicular block Confirmed by Evette Mari MD ([id number]) on 04/09/2025 7:24:05 AM Referred By: Electronically Signed By: Evette Mari MD Transcribed By: MUS Signed By Evette Mari MD 03/19 12/10 0724NoCritical access hospital Physician GroupEosinophils [#/volume] in Blood by Automated countOrdered By: Sohail Figueroa on 71-96-3423Hblmkictwwl (Bld) [#/Vol] 0.1 10*3/uLNormal0.0-0.45[facility] For RehabilitationComment on above: Performed By: #### PT, PTT, LIPASE, CMP, HS TROP, CBC #### [facility] [address] [place] [address] USAEosinophils/100 leukocytes in Blood by Automated count Ordered By: Sohail Figueroa on 32-34-9666Qsmtdgdzejk/100 WBC (Bld)2.6 %Normal. [facility] For RehabilitationComment on above:Performed By: #### PT, PTT, LIPASE, CMP, HS TROP, CBC #### [facility] [address] [place] [address] USAEpithelial cells.squamous [#/area] in Urine sediment by Automated countOrdered By: Sohail Figueroa on 00-14-3255Sumqaivtlk cells.squamous Auto (Urine sed) [#/Area]N/AFUniversity Hospitals TriPoint Medical CenterErythrocyte distribution width [Ratio] by Automated countOrdered By: Sohail Figueroa on 39-39-3438Vpsylaueuyp distribution width (RBC) [Ratio]16.0 %High11.9-15.3 [facility] For RehabilitationComment on above:Performed By: #### PT, PTT, LIPASE, CMP, HS TROP, CBC #### [facility] [address] [place] [address] USAErythrocytes [#/area] in Urine sediment by Automated count Ordered By: Sohail Figueroa on 83-87-7084RVJ Auto (Urine sed) [#/Area]1-2 [HPF]0-4 [facility] For RehabilitationErythrocytes [#/volume] in Blood by Automated countOrdered By: Sohail Figueroa on 01-68-5576MMZ (Bld) [#/Vol]3.34 10*6/uLLow 3.60-5.00[facility] For RehabilitationComment on above:Performed By: #### PT, PTT, LIPASE, CMP, HS TROP, CBC #### [facility] [address] [place] [address] USAGlucose [Mass/volume] in Serum or PlasmaOrdered By: Sohail Figueroa on 05-94-5041Gbnvzba [Mass/Vol]110 mg/sWNzqp61-299FyxmvdzzjCleveland Clinic Children'S Hospital For RehabilitationComment on above:ADA recommended reference [...] PTT, LIPASE, CMP, HS TROP, CBC #### [facility] [address] [place] [address] USAGlucose [Mass/volume] in Urine by Test stripOrdered By: Sohail Figueroa on 38-00-5510Fmvigut Test strip (U) [Mass/Vol]Normal mg/dLNormal [facility] For RehabilitationHematocrit [Volume Fraction] of Blood by Automated countOrdered By: Sohail Figueroa on 13-32-8800Dkyrawhvpj (Bld) [Volume fraction]29.5 %Low34.0-46.4FUniversity Hospitals TriPoint Medical CenterComment on above: Performed By: #### PT, PTT, LIPASE, CMP, HS TROP, CBC #### [facility] [address] [place] [address] USAHemoglobin Test strip Ql (U)Ordered By: Sohail Figueroa on 97-92-4392Djsaevwrkk Ql (U)NegativeNegativeCleveland Clinic Children'S Hospital For Rehabilitation Hemoglobin [Mass/volume] in BloodOrdered By: Sohail Figueroa on 04-08-2025 Hemoglobin (Bld) [Mass/Vol]10.0 g/dLLow11.8-15.4FUniversity Hospitals TriPoint Medical CenterComment on above:Performed By: #### PT, PTT, LIPASE, CMP, HS TROP, CBC #### [facility] [address] [place] [address] USAHyaline casts [#/area] in Urine sediment by Automated countOrdered By: Sohail Figueroa on 98-98-0681Hrjqndh casts Auto (Urine sed) [#/Area]None [LPF]0-8[facility] For RehabilitationINR in Platelet poor plasma by Coagulation assayOrdered By: Sohail Figueroa on 86-32-4910THT Coag (PPP) [Relative time]1.4 {INR}NormalCleveland Clinic Children'S Hospital For RehabilitationComment on above: INR Therapeutic [...] PTT, LIPASE, CMP, HS TROP, CBC #### [facility] [address] [place] [address] USAKetones [Presence] in Urine by Test stripOrdered By: Sohail Figueroa on 87-59-6492Xzcdmna Ql (U)NegativeNormalSelect Medical Specialty Hospital - TrumbullComment on above:Order Comment: Name Collection Type:: Clean- Voided MidstreamPerformed By: #### ADDONUAPLUS ####[facility] [place] [id number] USALeukocyte esterase [Presence] in Urine by Test stripOrdered By: Sohail Figueroa on 12-88-6865Tndopqpln esterase Test strip Ql (U)NegativeNormalNegDayton Osteopathic HospitalComment on above:Order Comment: Name Collection Type:: Clean-Voided MidstreamPerformed By: #### ADDONUAPLUS ####[facility] [address] [place], [place] [address] USALeukocytes [#/area] in Urine sediment by Automated countOrdered By: Sohail Figueroa on 17-84-9364WIO Auto (Urine sed) [#/Area]1-2 [HPF]0-4FUniversity Hospitals TriPoint Medical CenterLeukocytes [#/volume] corrected for nucleated erythrocytes in Blood by Automated counOrdered By: Sohail Figueroa on 49-20-2250HOP corrected for nucl RBC Auto (Bld) [#/Vol]4.4 10*3/uL3.8-11.6FUniversity Hospitals TriPoint Medical CenterLeukocytes [#/volume] in Blood by Automated countOrdered By: Sohail Figueroa on 72-91-6520KLE (Bld) [#/Vol]4.4 10*3/uLNormal3.8-11.6FUniversity Hospitals TriPoint Medical CenterComment on above:Performed By: #### PT, PTT, LIPASE, CMP, HS TROP, CBC #### [place] [address] USALipase [Enzymatic activity/volume] in Serum or Plasma Ordered By: Sohail Figueroa on 80-65-1359Ytebss [Catalytic activity/Vol]110.0 U/L High11.0-82.0[facility] For RehabilitationComment on above:Result Comment: PERFORMED BY: [place] [address] PATHOLOGIST COMPOSITION MIXER ELIZABETH MOREL M.D.Performed By: #### PT, PTT, LIPASE, CMP, HS TROP, CBC #### [place] [address] USALymphocytes [#/volume] in Blood by Automated countOrdered By: Sohail Figueroa on 42-10-5281Xkppqzqxwfo (Bld) [#/Vol]1.0 10*3/uLNormal1.00-4.8 [facility] For RehabilitationComment on above:Performed By: #### PT, PTT, LIPASE, CMP, HS TROP, CBC #### [place] [address] USALymphocytes/100 leukocytes in Blood by Automated count Ordered By: Sohail Figueroa on 12-40-7580Nfrlxqdmrdl/100 WBC (Bld)23.3 %Normal. [facility] For RehabilitationComment on above:Performed By: #### PT, PTT, LIPASE, CMP, HS TROP, CBC #### [place] [address] USAMCH [Entitic mass] by Automated countOrdered By: Sohail Figueroa on 80-83-1744MBR (RBC) [Entitic mass]30.1 spDzrjbh61.7-34.3FUniversity Hospitals TriPoint Medical CenterComment on above:Performed By: #### PT, PTT, LIPASE, CMP, HS TROP, CBC #### [place] [address] USAMCHC Auto (RBC) [Mass/Vol]Ordered By: Sohail Figueroa on 09-39-7389OPKF (RBC) [Mass/Vol]34.0 g/dL32.0-35.0[facility] For RehabilitationMCV [Entitic volume] by Automated countOrdered By: Sohail Figueroa on 69-55-3945ICT (RBC) [Entitic vol]88.4 bUKarewg20-988KigkquozzCleveland Clinic Children'S Hospital For RehabilitationComment on above:Performed By: #### PT, PTT, LIPASE, CMP, HS TROP, CBC #### [facility] [address] [place] [address] USAMonocyte distribution width [Entitic volume] in Blood by AutomatedOrdered By: Sohail Figueroa on 75-21-4904Gptsxquc distribution width Auto (Bld) [Entitic vol]17.55 %0.00-20.00[facility] For RehabilitationMonocytes [#/volume] in Blood by Automated countOrdered By: Sohail Figueroa on 04-08-2025 Monocytes (Bld) [#/Vol]0.4 10*3/uLNormal0.0-0.8[facility] Comment on above:Performed By: #### PT, PTT, LIPASE, CMP, HS TROP, CBC #### [facility] [address] [place] [address] USAMonocytes/100 leukocytes in Blood by Automated count Ordered By: Sohail Figueroa on 88-63-6932Adexhtbva/100 WBC (Bld)10.0 %Normal. [facility] For RehabilitationComment on above:Performed By: #### PT, PTT, LIPASE, CMP, HS TROP, CBC #### [facility] [address] [place] [address] USANeutrophils [#/volume] in Blood by Automated countOrdered By: Sohail Figueroa on 71-97-9765Hgnijbydppe (Bld) [#/Vol]2.8 10*3/uLNormal1.8-7.7 [facility] RehabilitationComment on above:Performed By: #### PT, PTT, LIPASE, CMP, HS TROP, CBC #### [facility] [address] [place] [address] USANeutrophils/100 leukocytes in Blood by Automated count Ordered By: Sohail Figueroa on 78-24-3069Fbytrcheuhy/100 WBC (Bld)63.1 %Normal. [facility] For RehabilitationComment on above:Performed By: #### PT, PTT, LIPASE, CMP, HS TROP, CBC #### [facility] [address] [place] [address] USANitrite Test strip Ql (U)Ordered By: Sohail Figueroa on 97-99-5410Jonbymv Ql (U)NegativeNegativeCleveland Clinic Children'S Hospital For RehabilitationNo Panel InformationOrdered By: Sohail Figueroa on 44-33-7136Llyntqvkj GFR (CKD-EPI) 13.433 mL/MinCleveland Clinic Children'S Hospital For RehabilitationPharmacy Creatinine Clearance (Chem12.34[facility] For RehabilitationNucleated erythrocytes [Presence] in Blood by Automated countOrdered By: Sohail Figueroa on 29-56-8996Evsdefveh RBC Auto Ql (Bld)0.1 /100{WBC}0-0.5FUniversity Hospitals TriPoint Medical CenterPartial Thromboplastin Timeon 45-54-0107uGOR Coag (Bld) [Time]31.6 kRwcmmr11.1-36.5The On License Of [facility] Physician GroupComment on above:Result Comment: A hematocrit value greater than 55% may lead to inaccurate results in coagulation testing. Patients having hematocrit values >55% require a special collection tube for coagulation studies. Please contact the laboratory at [phone] for redraw instructions. PERFORMED BY: [address] [place] [address] PATHOLOGIST COMPOSITION MIXER ELIZABETH MOREL M.D.Performed By: #### PT, PTT, LIPASE, CMP, HS TROP, CBC #### [address] [address] USAPlatelet mean volume [Entitic volume] in Blood by Automated countOrdered By: Sohail Figueroa on 43-83-0535Wsxqknpr mean volume (Bld) [Entitic vol]9.5 fLNormal6.3-10.7FUniversity Hospitals TriPoint Medical CenterComment on above:Performed By: #### PT, PTT, LIPASE, CMP, HS TROP, CBC #### [facility] [address] [place] [id number] USAPlatelets [#/volume] in Blood by Automated countOrdered By: Sohail Figueroa on 35-13-7922Yeokerkwm (Bld) [#/Vol]211 10*3/nGAwvxkj506-956 [facility] For RehabilitationComment on above:Performed By: #### PT, PTT, LIPASE, CMP, HS TROP, CBC #### [facility] [address] [place] [id number] USAPotassium [Moles/volume] in Serum or PlasmaOrdered By: Sohail Figueroa on 17-41-8053Miulwatkv [Moles/Vol]4.3 mmol/LNormal3.5-5.1FUniversity Hospitals TriPoint Medical CenterComment on above:Performed By: #### PT, PTT, LIPASE, CMP, HS TROP, CBC #### [facility] [address] [place] [address] USAProtein [Mass/volume] in Serum or PlasmaOrdered By: Sohail Figueroa on 01-88-3591Hxrfmle [Mass/Vol]7.1 g/dLNormal6.4-8.9[facility] For RehabilitationComment on above:Performed By: #### PT, PTT, LIPASE, CMP, HS TROP, CBC #### [facility] [address] [place] [id number] USAProtein [Mass/volume] in Urine by Test stripOrdered By: Sohail Figueroa on 45-53-8321Rqgnsgb (U) [Mass/Vol]50 mg/dLNormalNegativeCleveland Clinic Children'S Hospital For RehabilitationComment on above:Order Comment: Name Collection Type:: Clean-Voided MidstreamPerformed By: #### ADDONUAPLUS ####[facility] [address] [place] [id number] USAProthrombin time (PT)Ordered By: Sohail Figueroa on 97-33-1528HU Coag (PPP) [Time]16.2 sHigh9.0-12.9[facility] For RehabilitationComment on above:A hematocrit value greater than 55% may lead to inaccurate results in coagulation testing. Patientshaving hematocrit values >55% require a special collection tube for coagulation studies. Please c ontact the laboratory at [phone] for redraw instructions.Result Comment: A hematocrit value greater than 55% may lead to inaccurate results in coagulation testing. Patients having hematocrit values >55% require a special collection tube for coagulation studies. Please contact the laboratory at [phone] for redraw instructions.Performed By: #### PT, PTT, LIPASE, CMP, HS TROP, CBC #### [facility] [address] [place] [address] USASerum globulin measurement by calculation (mass/volume) Ordered By: Sohail Figueroa on 32-76-0925Mfklkjbl (S) [Mass/Vol]3.0 g/dLNormal [facility] RehabilitationComment on above:Performed By: #### PT, PTT, LIPASE, CMP, HS TROP, CBC #### [place] [address] USASerum or plasma albumin/globulin mass ratioOrdered By: Sohail Figueroa on 83-74-5754Zgvzrkt/Globulin [Mass ratio]1.4 {ratio}Normal [facility] For RehabilitationComment on above:Performed By: #### PT, PTT, LIPASE, CMP, HS TROP, CBC #### [place] [address] USASerum or plasma anion gap determinationOrdered By: Sohail Figueroa on 52-17-0209Anvzb gap [Moles/Vol]15.1 mmol/LHigh6.0-15.0[facility] For RehabilitationComment on above:Performed By: #### PT, PTT, LIPASE, CMP, HS TROP, CBC #### [place] [address] USASodium [Moles/volume] in Serum or PlasmaOrdered By: Sohail Figueroa on 60-45-9929Zdmsfp [Moles/Vol]137 mmol/IOeourf722-980ViwwpxtisCleveland Clinic Children'S Hospital For RehabilitationComment on above:Performed By: #### PT, PTT, LIPASE, CMP, HS TROP, CBC #### [place] [id number] USASpecific gravity Test strip (U) [Rel density]Ordered By: Sohail Figueroa on 62-15-6209Jbikrqcc gravity (U) [Rel density]1.0061.001-1.030 [facility] For RehabilitationTroponin I High Sensitivityon 04-08-2025 Troponin I High Fcxikehieuk31Leil9-84WpvOcean Springs HospitalComment on above:Result Comment: The Troponin units of report have been changed to meet the Chest Pain Accreditation requirement, element EC5.M1l2. Troponin units are changed from pg/ml to ng/L. Also, the decimal is removed and results are in whole numbers. PERFORMED BY: [address] [address] PATHOLOGIST COMPOSITION MIXER ELIZABETH MOREL M.D.Performed By: #### PT, PTT, LIPASE, CMP, HS TROP, CBC #### [address] [address] USATroponin I.cardiac [Mass/volume] in Serum or Plasma by Detection limit <= 0.01 ng/mLOrdered By: Sohail Figueroa on 14-50-4134Hcosewwa I.cardiac DL <= 0.01 ng/mL [Mass/Vol]25 ng/LHigh0-15[facility] For RehabilitationComment on above:The Troponin units of report have been changed to meet the Chest Pain Accreditation requirement, element EC5.M1l2. Troponin units are changed from pg/ml to ng/L. Also, the decimal is removed and results are in whole numbers.Type and Screenon 56-61-7471KSD and Rh group Nom (Bld)Blood group AB Rh(D) positiveNormPikes Peak Regional HospitalComment on above:Result Comment: PERFORMED BY: [address] [address] PATHOLOGIST COMPOSITION MIXER ELIZABETH MOREL M.D.Urea nitrogen [Mass/volume] in Serum or PlasmaOrdered By: Sohail Figueroa on 09-45-4801Nypv nitrogen [Mass/Vol]71 mg/dLHigh7-25[facility] For RehabilitationComment on above:Performed By: #### PT, PTT, LIPASE, CMP, HS TROP, CBC #### [address] [address] USAUrobilinogen Test strip (U) [Mass/Vol]Ordered By: Sohail Figueroa on 81-82-5747Vfianzjvyttz (U) [Mass/Vol]Normal mg/dLNormalCleveland Clinic Children'S Hospital For RehabilitationX-ray reportOrdered By: Derek Garnett on 50-11-0140Nxpky reportOHIO STATE HEALTH SYSTEM Main [place] [id number] XRay Report Signed Patient: Marleni Dennis MR#: [id number] : 1950 Acct:[id number] Age/Sex: 74 / F ADM Date: 5 Loc: ER Room: Type: [facility] ER Attending Dr: Copies to: Sohail [...] Garnett M.D. 04/08/2025 8:43 PM Dictation Location: [place] [address] Transcribed By: [facility] 04/08/252042 Dictated By: Derek Garnett DO 04/08/252038 Signed By: 04/08/252042 [facility] For RehabilitationXR chest 2V*on 77-59-4762AX chest 2V*[facility] Main [address] [address] XRay Report Signed Patient: Marleni Dennis MR#: [id number] : 1950 Acct:[id number] Age/Sex: 74 / F ADM Date: 04/08/25 Loc: ER Room: Type: [facility] ER Attending Dr: Copies to: Sohail [...] Garnett M.D. 04/08/2025 8:43 PM Dictation Location: [place] [address] Transcribed By: [facility] 04/08/252042 Dictated By: Derek Garnett DO 04/08/252038 Signed By: 04/08/252042[facility] Physician GroupaPTT in Platelet poor plasma by Coagulation assayOrdered By: Sohail Figueroa on 59-17-1934bYBZ Coag (PPP) [Time] 31.6 s25.1-36.5FUniversity Hospitals TriPoint Medical CenterComment on above:A hematocrit value greater than 55% may lead to inaccurate results in coagulation testing. Patientshaving hematocrit values >55% require a special collection tube for coagulation studies. Please contact the laboratory at [phone] for redraw instructions.pH of Urine by Test stripOrdered By: Sohail Figueroa on 10-98-9550wK (U)6.5 [pH]Normal5.0-9.0[facility] For RehabilitationComment on above:Order Comment: Name Collection Type:: Clean-Voided MidstreamPerformed By: #### ADDONUAPLUS ####[facility] [address] [place] [address] USACBC (INCLUDES DIFF/PLT)on 86-72-6847Cqwpxxqly (Bld) [#/Vol]0.02 10*3/uL Normal0-200Quest DiagnosticsComment on above:Performed By: #### 3020, [address], %SBCULI, 6399 #### [facility] of [place] [address] Yard Foreman: Figueroa Jacques MDBasophils/100 WBC (Bld)0.5 %NormalQuest DiagnosticsComment on above:Performed By: #### 3020, 64511, %SBCULI, 6399 #### [facility] of [address], [address] [place] [address] Yard Foreman: Figueroa Jacques MDEosinophils (Bld) [#/Vol]0.121 10*3/uLNormal 15-500Quest DiagnosticsComment on above:Performed By: #### 3020, 03161, %SBCULI, 6399 #### [facility] of [address], [address] [place] [address] Yard Foreman: Figueroa Jacques MDEosinophils/100 WBC (Bld)3.1 %NormalQuest DiagnosticsComment on above:Performed By: #### 3020, 53023, %SBCULI, 6399 #### [facility] of [place] [address] Yard Foreman: Figueroa Jacques MDErythrocyte distribution width (RBC) [Ratio] 15.8 %High11.0-15.0Quest DiagnosticsComment on above:Performed By: #### 3020, 80601, %SBCULI, 6399 #### [facility] of [place] [address] Yard Foreman: Figueroa Jacques MDHematocrit (Bld) [Volume fraction]27.4 %Low 35.0-45.0Quest DiagnosticsComment on above:Performed By: #### 3020, 40899, %SBCULI, 6399 #### [facility] of [place] [address] Yard Foreman: Figueroa Jacques MDHemoglobin (Bld) [Mass/Vol]8.7 g/dLLow 11.7-15.5Quest DiagnosticsComment on above:Performed By: #### 3020, 90119, %SBCULI, 6399 #### [facility] of [place] [address] Yard Foreman: Figueroa Jacques MDLymphocytes (Bld) [#/Vol]0.94 10*3/uLNormal 850-3900Quest DiagnosticsComment on above:Performed By: #### 3020, 31524, %SBCULI, 6399 #### [facility] of [place] [address] Yard Foreman: Figueroa Jacques MDLymphocytes/100 WBC (Bld)24.1 %NormalQuest DiagnosticsComment on above:Performed By: #### 3020, 99318, %SBCULI, 6399 #### [facility] of [address], [address] [place] [address] Yard Foreman: Figuerao Jacques MDMCH (RBC) [Entitic mass]29.6 acRyumau78.0-33.0 Quest DiagnosticsComment on above:Performed By: #### 3020, 90614, %SBCULI, 6399 #### [facility] of [place] [address] Yard Foreman: Figueroa Jacques MDMCHC (RBC) [Mass/Vol]31.8 g/dLLow32.0-36.0 Quest DiagnosticsComment on above:Result Comment: For adults, a slight decrease in the calculated MCHC value (in the range of 30 to 32 g/dL) is most likely not clinically significant; however, it should be interpreted with caution in correlation with other red cell parameters and the patient's clinical condition.Performed By: #### 3020, 11056, %SBCULI, 6399 #### [facility] of [place] [address] Yard Foreman: Figueroa Jacques MDMCV (RBC) [Entitic vol]93.2 rDLctgje73.0-100.0 Quest DiagnosticsComment on above:Performed By: #### 3020, 18766, %SBCULI, 6399 #### [facility] of [address], [address] [place] [address] Yard Foreman: Figueroa Jacques MDMonocytes (Bld) [#/Vol]0.507 10*3/uLNormal 200-950Quest DiagnosticsComment on above:Performed By: #### 3020, 61753, %SBCULI, 6399 #### [facility] of [address], [address] [place] [address] Yard Foreman: Figueroa Jacques MDMonocytes/100 WBC (Bld)13.0 %NormalQuest DiagnosticsComment on above:Performed By: #### 3020, 57748, %SBCULI, 6399 #### [facility] of [address], [address] [place] [address] Yard Foreman: Figueroa Jacques MDNeutrophils (Bld) [#/Vol]2.313 10*3/uLNormal 1500-7800Quest DiagnosticsComment on above:Performed By: #### 3020, 26706, %SBCULI, 6399 #### [facility] of [address], [address] [place] [address] Yard Foreman: Figueroa Jacques MDNeutrophils/100 WBC (Bld)59.3 %NormalQuest DiagnosticsComment on above:Performed By: #### 3020, 91541, %SBCULI, 6399 #### [facility] of [address], [address] [place] [address] Yard Foreman: Figueroa Jacques MDPlatelet mean volume (Bld) [Entitic vol]11.3 fLNormal7.5-12.5Quest DiagnosticsComment on above:Performed By: #### 3020, 90434, %SBCULI, 6399 #### [facility] of [address], [address] [place] [address] Yard Foreman: Figueroa Jacques MDPlateboston city hospital ([facility]) [#/Vol]188 10*3/uLNormal 140-400Quest DiagnosticsComment on above:Performed By: #### 3020, 09854, %SBCULI, 6399 #### [facility] of [address], [address] [place] [address] Yard Foreman: Figueroa Jacques MDRBC ([facility]) [#/Vol]2.94 10*6/uLLow3.80-5.10Quest DiagnosticsComment on above:Performed By: #### 3020, 52698, %SBCULI, 6399 #### [facility] of [place] [address] Yard Foreman: Figueroa Jacques MDKINGSBROOK JEWISH [facility] ([facility]) [#/Vol]3.9 10*3/uLNormal3.8-10.8 Quest DiagnosticsComment on above:Performed By: #### 3020, 18391, %SBCULI, 6399 #### [facility] of [place] [address] Yard Foreman: Figueroa Jacques MDCOMPREHENSIVE METABOLIC PANELon 04-04-2025 Albumin [Mass/Vol]3.6 g/dLNormal3.6-5.1Quest DiagnosticsComment on above: Performed By: #### 3020, 92056, %SBCULI, 6399 #### [facility] of [place] [address] Yard Foreman: Figueroa Jacques MDAlbumin/Globulin [Mass ratio]1.4 {ratio}Normal 1.0-2.5Quest DiagnosticsComment on above:Performed By: #### 3020, 16279, %SBCULI, 6399 #### [facility] of [address], [address] [place] [address] Yard Foreman: Figueroa Jacques MDALP [Catalytic activity/Vol]37 U/UKfdxmw97-493 Quest DiagnosticsComment on above:Performed By: #### 3020, 86374, %SBCULI, 6399 #### [facility] of [address], [address] [place] [address] Yard Foreman: Figueroa Jacques MDALT [Catalytic activity/Vol]5 U/LLow6-29Quest DiagnosticsComment on above:Performed By: #### 3020, 56665, %SBCULI, 6399 #### [facility] of [address], [address] [place] [address] Yard Foreman: Figueroa Jacques MDAST [Catalytic activity/Vol]15 U/WVxoxzf99-32 Quest DiagnosticsComment on above:Performed By: #### 3020, 48711, %SBCULI, 6399 #### [facility] of [address], [address] [place] [address] Yard Foreman: Figueroa Jacques MDBilirubin [Mass/Vol]0.6 mg/dLNormal0.2-1.2 Quest DiagnosticsComment on above:Performed By: #### 3020, 47875, %SBCULI, 6399 #### [facility] of [place] [address] Yard Foreman: Figueroa Jacques MDCalcium [Mass/Vol]8.8 mg/dLNormal8.6-10.4Quest DiagnosticsComment on above:Performed By: #### 3020, 76859, %SBCULI, 6399 #### [facility] of [address], [address] [place] [address] Yard Foreman: Figueroa Jacques MDChloride [Moles/Vol]98 mmol/VCkauul33-288Xcuks DiagnosticsComment on above:Performed By: #### 3020, 16266, %SBCULI, 6399 #### [facility] of [address], [address] [place] [address] Yard Foreman: Figueroa Jacques MDCO2 [Moles/Vol]25 mmol/QXaodia70-72Xwgld DiagnosticsComment on above:Performed By: #### 3020, 80008, %SBCULI, 6399 #### [facility] of [place] [address] Yard Foreman: Figueroa OCHOAreatinine [Mass/Vol]4.59 mg/dLHigh0.60-1.00 Quest DiagnosticsComment on above:Performed By: #### 3020, 91265, %SBCULI, 6399 #### [facility] of [place] [address] Yard Foreman: Figueroa Jacques MDGFR/1.73 sq M.predicted among non-blacks MDRD (S/P/Bld) [Vol rate/Area]9 mL/min/{1.73_m2}Low> OR = 60Quest DiagnosticsComment on above:Performed By: #### 3020, 28479, %SBCULI, 6399 #### [facility] of [place] [address] Yard Foreman: Figueroa Jacques MDGlobulin (S) [Mass/Vol]2.5 g/dLNormal1.9-3.7 Quest DiagnosticsComment on above:Performed By: #### 3020, 99441, %SBCULI, 6399 #### [facility] of [place] [address] Yard Foreman: Figueroa Jacques MDGlucose [Mass/Vol]96 mg/pWVrmoki73-99Pvugb DiagnosticsComment on above:Result Comment: Fasting reference intervalPerformed By: #### 3020, 49056, %SBCULI, 6399 #### [facility] of [place] [address] Yard Foreman: Figueroa Jacques MDPotassium [Moles/Vol]3.8 mmol/LNormal3.5-5.3 Quest DiagnosticsComment on above:Performed By: #### 3020, 58773, %SBCULI, 6399 #### [facility] of [address] [address] Yard Foreman: Figueroa Jacques MDProtein [Mass/Vol]6.1 g/dLNormal6.1-8.1Quest DiagnosticsComment on above:Performed By: #### 3020, 44814, %SBCULI, 6399 #### [facility] [address], [address] [place] [address] Yard Foreman: Figueroa Jacques MDSodium [Moles/Vol]136 mmol/MIbcxvu353-262Xbjub DiagnosticsComment on above:Performed By: #### 3020, 57417, %SBCULI, 6399 #### [facility] [address], [address] [place] [address] Yard Foreman: Figueroa Jacques MDUrea nitrogen [Mass/Vol]69 mg/dLHigh7-25Quest DiagnosticsComment on above:Performed By: #### 3020, 10114, %SBCULI, 6399 #### [facility] [address], [address] [place] [address] Yard Foreman: Figueroa Jacques MDUrea nitrogen/Creatinine [Mass ratio]15 mg/mg Normal6-22Quest DiagnosticsComment on above:Performed By: #### 3020, 29045, %SBCULI, 6399 #### [facility] [address], [address] [place] [address] Yard Foreman: Figueroa Jacques MDCULTURE, URINE, ROUTINEon 35-83-2051NGCATYS, URINE, ROUTINESEE NOTENormalQuest DiagnosticsComment on above:Result Comment: CULTURE, URINE, ROUTINE Micro Number: [id number] Test Status: Final Specimen Source: Urine Specimen Quality: Adequate Result: Less than 10,000 CFU/mL of single Gram positive organism isolated. No further testing will be performed. If clinically indicated, recollection using a method to minimize contamination, with prompt transfer to Urine Culture Transport Tube, is recommended.Performed By: #### 3020, 62741, %SBCULI, 6399 #### [facility] [place] [address] Yard Foreman: Figueroa Jacques MDOffice Visiton 31-43-4875Nygomc-up visit [id number] Marleni Dennis 1950 F Date Provider Department [place] 04/04/2025 [address]-MWJOENCARA WALLER [facility] Family History Problem Relation Age of Onset Coronary artery disease Mother Stroke Mother Coronary artery disease Father Ovarian cancer Sister Family Status - Relation Status Age at Mother Father Sister Level of Service:[address]280 [place] OFFICE/OUTPATIENT ESTABLISHED MOD [facility]REFLEX[facility] URINE CULTUREon 82-03-3431NYWABOBSQ URINE CULTURENormalQuest DiagnosticsComment on above:Result Comment: CULTURE INDICATED - RESULTS TO FOLLOWPerformed By: #### 3020, 13890, %SBCULI, 6399 #### [facility] [place] [address] Yard Foreman: Figueroa Jacques MDURINALYSIS, COMPLETE W/REFLEX TO CULTUREon 32-93-4946Sybpdelbsb (U)CLOUDYAbnormalCLEARQuest DiagnosticsComment on above: Performed By: #### 3020, 18612, %SBCULI, 6399 #### [facility] [place] [address] Yard Foreman: Figueroa Jacques MDBACTERIANONE SEENNormalNONE SEENQuest DiagnosticsComment on above:Performed By: #### 3020, 10567, %SBCULI, 6399 #### [facility] [place] [address] Yard Foreman: Figueroa Jacques MDBilirubin Ql (U)NegativeNormalNEGATIVEQuest DiagnosticsComment on above:Performed By: #### 3020, 56662, %SBCULI, 6399 #### [facility] [place] [address] Yard Foreman: Figueroa Jacques MDColor (U)YELLOWNormalYELLOWQuest Diagnostics Comment on above:Performed By: #### 3020, 15799, %SBCULI, 6399 #### [facility] of [address], [address] [place] [address] Yard Foreman: Figueroa Jacques MDGlucose Ql (U)NegativeNormalNEGATIVEQuest DiagnosticsComment on above:Performed By: #### 3020, 08366, %SBCULI, 6399 #### [facility] of [address], [address] [place] [address] Yard Foreman: Figueroa Jacques MDHYALINE XTMA23-68ZngesrivSEBT SEENQuest DiagnosticsComment on above:Performed By: #### 3020, 42820, %SBCULI, 6399 #### [facility] of [place] [address] Yard Foreman: Figueroa Jacques MDKetones Ql (U)NegativeNormalNEGATIVEQuest DiagnosticsComment on above:Performed By: #### 3020, 91022, %SBCULI, 6399 #### [facility] of [address], [address] [place] [address] Yard Foreman: Figueroa Jacques MDLeukocyte esterase Test strip Ql (U)TRACE AbnormalNEGATIVEQuest DiagnosticsComment on above:Performed By: #### 3020, 55684, %SBCULI, 6399 #### [facility] of [place] [address] Yard Foreman: Figueroa Jacques MDNitrite Ql (U)NegativeNormalNEGATIVEQuest DiagnosticsComment on above:Performed By: #### 3020, 20996, %SBCULI, 6399 #### [facility] of [place] [address] Yard Foreman: Figueroa Jacques MDNOTENormalQuest DiagnosticsComment on above: Result Comment: This urine was analyzed for the presence of WBC, RBC, bacteria, casts, and other formed elements. Only those elements seen were reported.Performed By: #### 3020, 72415, %SBCULI, 6399 #### [facility] of [address], [address] [place] [address] Yard Foreman: Figueroa Jacques MDOCCULT BLOODNegativeNormalNEGATIVEQuest DiagnosticsComment on above:Performed By: #### 3020, 43133, %SBCULI, 6399 #### [facility] of [address], [address] [place] [address] Yard Foreman: Figueroa Jacques MDpH (U)5.5 [pH]Normal5.0-8.0[facility] Comment on above:Performed By: #### 3020, 12995, %SBCULI, 6399 #### [facility] of [address], [address] [place] [address] Yard Foreman: Figueroa POWELLrotein Ql (U)3+AbnormalNEGATIVEQuest DiagnosticsComment on above:Performed By: #### 3020, 11363, %SBCULI, 6399 #### [facility] of [address], [address] [place] [address] Yard Foreman: Figueroa Jacques MDRBCNONE SEENNormal< OR = 2[facility] Comment on above:Performed By: #### 3020, 54825, %SBCULI, 6399 #### [facility] of [address], [address] [place] [address] Yard Foreman: Figueroa Jacques MDSpecific gravity (U) [Rel density]1.010Normal 1.001-1.035Quest DiagnosticsComment on above:Performed By: #### 3020, 25250, %SBCULI, 6399 #### [facility] of [address], [address] [place] [address] Yard Foreman: Figueroa Jacuqes MDSQUAMOUS EPITHELIAL CELLS0-5Normal< OR = 5 Quest DiagnosticsComment on above:Performed By: #### 3020, 27828, %SBCULI, 6399 #### [facility] of [address], [address] [place] [address] Yard Foreman: Figueroa Jacques MDWBC0-5Normal< OR = 5Quest DiagnosticsComment on above:Performed By: #### 3020, 12713, %SBCULI, 6399 #### [facility] [address], [address] [place] [address] Yard Foreman: Figueroa Jacques MD30on 99-41-300455Cct patient is Moderately Stable - Low risk of patient condition declining or worsening The patient's goals for the shift include rest The clinical goals for the shift include vssNormalUniversity of Baylor Scott & White Medical Center – UptownBASIC METABOLIC PANELon 77-80-7667Xtude gap [Moles/Vol]13 mmol/LNormal7-20 [facility]'s HospitalComment on above:Performed By: #### LAB15 ####[facility] (AKER)[address] [place] [place], [place] [address]Xzzespr [Mass/Vol]8.3 mg/dLLow8.6-10.3UnAshtabula General HospitalComment on above:Performed By: #### LAB15 ####[facility] ([facility])[address] [place], [place] [address]Yxpaubaq [Moles/Vol]106 mmol/TZtoptj16-738QvqjxfuldhAshtabula General HospitalComment on above:Performed By: #### LAB15 ####[facility] (AKER)[address], [place] [address]NH9 [Moles/Vol]21 mmol/LNormal 21-31UnAshtabula General HospitalComment on above:Performed By: #### LAB15 ####[facility] ([facility])[address], [place] [address]Lvggpgvwtj [Mass/Vol]3.69 mg/dLHigh0.60-1.20UnAshtabula General HospitalComment on above:Performed By: #### [id number] ####[facility] ([facility])[address], [place] [address]MKNFFRORVP FILTRATION RATE ML/MIN/1.73 SQ M.UWWAFCUMG60.3 mL/min/1.73m*2Low>60.0UnAshtabula General HospitalComment on above:Result Comment: [facility]???s estimated glomerular filtration rate (eGFR) will [...] anyone group of individuals.Performed By: #### [id number] ####[facility] ([facility])[address] [place], [place] [address]Tiwqxxf [Mass/Vol]82 mg/mYIdyxjm69-434NqsbwgitoqAshtabula General HospitalComment on above:Performed By: #### [id number] ####[facility] ([facility])[address] KHALILSELECT [facility] [place], [place] [address]Ogxvwdliv [Moles/Vol]5.1 mmol/LNormal3.5-5.1UnAshtabula General HospitalComment on above:Performed By: #### [id number] ####[facility] ([facility])[address] K[facility]IL[facility] [address] Sodium [Moles/Vol]135 mmol/LCir898-855GgnxokeyjcAshtabula General HospitalComment on above:Performed By: #### [id number] ####[facility] ([facility])[address] KHALILSELECT [facility] [place], [place] [address]Iubs nitrogen [Mass/Vol]85 mg/dLHigh7-25UnAshtabula General HospitalComment on above:Performed By: #### [id number] ####[facility] ([facility])[address] SIMRANSELECT SPECIALTY [facility]ITAL - [place], [place] [address]MTTE NITROGEN/CREATININE (MASS RATIO) IN SER/PLAS23.0[address] Anne HospitalComment on above: Performed By: #### [id number] ####[facility] ([facility])[address] [place], [place] [address]CBS WITH AUTO DIFFERENTIALon 13-09-2481Czxpumxmdsm distribution width (RBC) [Ratio]16.5 %High11.5-15.0UnAshtabula General HospitalComment on above:Performed By: #### [id number] #### [facility] ([facility]) [address] [place] [address]QVDZFLNESLS MEAN CORPUSCULAR HEMOGLOBIN CONCENTRATION (G/DL) BY JMMJFSCTP37.0 g/fKXjeahb82.0-35.0UnAshtabula General HospitalComment on above:Performed By: #### [id number] #### [facility] ([facility]) [address] [place] [address]Mwemzlmjuf (Bld) [Volume fraction]27.6 %Low36.0-45.0UnAshtabula General HospitalComment on above:Performed By: #### [id number] #### [facility] ([facility]) [address] [place], [place] [address]Debwtobqzu (Bld) [Mass/Vol]9.1 g/dLLow12.0-15.0UnAshtabula General HospitalComment on above:Performed By: #### [id number] #### [facility] ([facility]) [address] [place], [place] [address]WOJUAYMH PLATELET FRACTION %5.6 %Normal0.8-6.3UnAshtabula General HospitalComment on above:Performed By: #### [id number] #### [facility] ([facility]) [address] [place], [place] [address]OXM (RBC) [Entitic mass]29.5 lxKpwodl62.0-33.0UnAshtabula General HospitalComment on above:Performed By: #### [id number] #### [facility] ([facility]) [address] [place], [place] [address]XVK (RBC) [Entitic vol]89.6 iMTmmdwr10.0-98.0UnAshtabula General HospitalComment on above:Performed By: #### [id number] #### [facility] ([facility]) [address] [place], [place] [address]BAXC (PER 100 WBCS) BY AUTOMATED COUNT0.0 %Coawet5ZkjjplqjflAshtabula General HospitalComment on above:Performed By: #### [id number] #### [facility] ([facility]) [address] [place] [place] [address]FHGXHQWOP (10*3/UL) IN BLOOD AUTOMATED HMHYS989 10*3/uLLow 150-400UnAshtabula General HospitalComment on above:Performed By: #### [id number] #### [facility] ([facility]) [address] [facility] [place], [place] [address]ODH (Bld) [#/Vol]3.08 10*6/uLLow3.80-5.00UnAshtabula General HospitalComment on above:Performed By: #### [id number] #### [facility] ([facility]) [address] [place], [place] [address]FQX (Bld) [#/Vol]4.82 10*3/uLNormal4.00-10.60UnAshtabula General HospitalComment on above:Performed By: #### [id number] #### [facility] ([facility]) [address] [facility] [place], [place] [address]NLVQHP DIFFERENTIALon 39-99-9512BMGRCDLPV (10*3/UL) IN BLOOD BY CALCULATION0.04 10*3/uLNormal0.00-0.20UnAshtabula General HospitalComment on above:Performed By: #### [id number] ####[facility] ([facility])[address] [place], [place] [address]GKAJEFGEL/100 LEUKOCYTES IN BLOOD BY AUTOMATED COUNT0.8 %Normal0.0-1.0UnAshtabula General HospitalComment on above: Performed By: #### [id number] ####[facility] ([facility])[address] [place], [place] [address]LZBJAXUHGDS (10*3/UL) IN BLOOD BY CALCULATION0.21 10*3/uL Normal0.00-0.50UnAshtabula General HospitalComment on above:Performed By: #### [id number] ####[facility] ([facility])[address] [place] [address] EOSINOPHILS/100 LEUKOCYTES IN BLOOD BY AUTOMATED COUNT4.4 %Normal0.0-6.0 [facility] HospitalComment on above:Performed By: #### [id number] ####[facility] ([facility])[address] [place], [place] [address]JTVEOTVL GRANULOCYTES (10*3/UL) IN BLOOD BY CALCULATION0.03 10*3/uLNormal0.00-0.20 [facility] HospitalComment on above:Performed By: #### [id number] ####[facility] ([facility])[address] [place], [place] [address]XKQJUJAK GRANULOCYTES/100 LEUKOCYTES IN BLOOD BY AUTOMATED COUNT0.6 %Normal0.0-1.0 [facility] HospitalComment on above:Performed By: #### [id number] ####[facility] ([facility])[address] [place], [place] [address]DYLPLYQGQTB (10*3/UL) IN BLOOD BY CALCULATION1.64 10*3/uLNormal1.20-4.00UnAshtabula General HospitalComment on above:Performed By: #### [id number] ####[facility] ([facility])[address] [place], [place] [address]KFQGEOQCAXT/100 LEUKOCYTES IN BLOOD BY AUTOMATED COUNT34.0 %Pqnkoc02.0-45.0UnAshtabula General Hospital Comment on above:Performed By: #### [id number] ####[facility] ([facility])[address] [place], [place] [address]QJRXTFTGU (10*3/UL) IN BLOOD BY CALCUATION0.52 10*3/uLNormal0.10-1.00UnAshtabula General HospitalComment on above: Performed By: #### [id number] ####[facility] ([facility])[address] [place], [place] [address]FJZMHDZUS/100 LEUKOCYTES IN BLOOD BY AUTOMATED COUNT10.8 % Normal5.0-12.0UnAshtabula General HospitalComment on above:Performed By: #### [id number] ####[facility] ([facility])[address] [place] [address] NEUTROPHILS (10*3/UL) IN BLOOD BY CALCULATION2.4 10*3/uLNormal1.6-7.6UnAshtabula General HospitalComment on above:Performed By: #### [id number] ####[facility] ([facility])[address] [place], [place] [address]YUSMMOENBJC/100 LEUKOCYTES IN BLOOD BY AUTOMATED COUNT49.4 %Baafdb75.0-72.0UnAshtabula General HospitalComment on above:Performed By: #### [id number] ####[facility] ([facility])[address] [place] [id number] [id number]: Pain - Adult Goal: Verbalizes/displays adequate comfort [...] [facility] UptownBASIC METABOLIC PANELon 38-46-8184Smpof gap [Moles/Vol]12 mmol/L Normal7-20UnAshtabula General HospitalComment on above:Performed By: #### [id number] #### [facility] ([facility]) [address] [place], [place] [address]Iccdblu [Mass/Vol]8.4 mg/dLLow8.6-10.3UnAshtabula General HospitalComment on above:Performed By: #### [id number] #### [facility] ([facility]) [address] [place], [place] [address]Rfppluli [Moles/Vol]107 mmol/IGyqgsj21-233IoyxuxvpfeAshtabula General HospitalComment on above:Performed By: #### [id number] #### [facility] ([facility]) [address] [place] [address]RX2 [Moles/Vol]22 mmol/JTpwljc58-62KmskifdsndAshtabula General HospitalComment on above:Performed By: #### [id number] #### [facility] ([facility]) [address] [place] [address]Twwdcgydza [Mass/Vol]3.88 mg/dLHigh0.60-1.20UnAshtabula General HospitalComment on above:Performed By: #### [id number] #### [facility] ([facility]) [address] [place] [address]MIXQDZXVNE FILTRATION RATE ML/MIN/1.73 SQ M.FMXPXPQMP39.5 mL/min/1.73m*2Low>60.0UnAshtabula General HospitalComment on above:Result Comment: [facility]???s estimated glomerular filtration rate (eGFR) will [...] group of individuals.Performed By: #### [id number] #### [facility] ([facility]) [address] [place] [address]Xeisfeb [Mass/Vol]88 mg/zDRzeeha76-314EnebjojbqqAshtabula General HospitalComment on above:Performed By: #### [id number] #### [facility] ([facility]) [address] [place] [address]Yyhetjobr [Moles/Vol]5.0 mmol/LNormal3.5-5.1UnAshtabula General HospitalComment on above:Performed By: #### [id number] #### [facility] ([facility]) [address] [place] [address]Ywhefw [Moles/Vol]136 mmol/EIcshvf971-397BudfxfndciAshtabula General HospitalComment on above:Performed By: #### [id number] #### [facility] ([facility]) [address] [place] [address]Haka nitrogen [Mass/Vol]81 mg/dLHigh7-25UnAshtabula General HospitalComment on above:Performed By: #### [id number] #### [facility] ([facility]) [address] [place] [address]UMOM NITROGEN/CREATININE (MASS RATIO) IN SER/PLAS20.9Noal [facility] HospitalComment on above:Performed By: #### [id number] #### [facility] ([facility]) [address] [place] [address]IVI WITH AUTO DIFFERENTIALon 99-66-1137Gwxsivcqm (Bld) [#/Vol] 0.04 10*3/uLNormal0.00-0.20UnAshtabula General HospitalComment on above: Performed By: #### [id number] ####[facility] ([facility])[address] [place], [place] [address]Uzsparbzk/100 WBC (Bld)0.7 %Normal0.0-1.0UnAshtabula General HospitalComment on above:Performed By: #### [id number] ####[facility] ([facility])[address] [place], [place] [address]Ktucjykztft (Bld) [#/Vol]0.24 10*3/uL Normal0.00-0.50UnAshtabula General HospitalComment on above:Performed By: #### [id number] ####[facility] ([facility])[address] [place] [address] Eosinophils/100 WBC (Bld)4.4 %Normal0.0-6.0UnAs[facility]abula General Hospital Comment on above:Performed By: #### [id number] ####[facility] ([facility])[address] [place], [place] [address]Igggxaawgqh distribution width (RBC) [Ratio]16.4 % High11.5-15.0UnAshtabula General HospitalComment on above:Performed By: #### [id number] ####[facility] ([facility])[address] [place] [address] ERYTHROCYTE MEAN CORPUSCULAR HEMOGLOBIN CONCENTRATION (G/DL) BY EOSXYGRHC93.0 g/tIXhabti87.0-35.0UnAshtabula General HospitalComment on above:Performed By: #### [id number] ####[facility] ([facility])[address] [place], [place] [address]Xxtzsdhwhg (Bld) [Volume fraction]28.8 %Low36.0-45.0UnAshtabula General HospitalComment on above:Performed By: #### [id number] ####[facility] ([facility])[address] [place], [place] [address]Mhyalcqxur (Bld) [Mass/Vol]9.5 g/dLLow 12.0-15.0UnAshtabula General HospitalComment on above:Performed By: #### [id number] ####[facility] ([facility])[address] [place], [place] [address]Zhlirqgf granulocytes (Bld) [#/Vol]0.02 10*3/uLNormal0.00-0.20UnAshtabula General HospitalComment on above:Performed By: #### [id number] ####[facility] ([facility])[address] [place], [place] [address]Qxuksnpx granulocytes/100 WBC (Bld)0.4 %Normal0.0-1.0UnAshtabula General HospitalComment on above:Performed By: #### [id number] ####[facility] ([facility])[address] [place] [address] Lymphocytes (Bld) [#/Vol]1.66 10*3/uLNormal1.20-4.00UnAshtabula General HospitalComment on above:Performed By: #### [id number] ####[facility] ([facility])[address] [place] [address]Lggklwetxwj/100 WBC (Bld)30.6 %Normal 20.0-45.0UnAshtabula General HospitalComment on above:Performed By: #### [id number] ####[facility] [place] [address]ZIF (RBC) [Entitic mass]29.1 rtLszohz57.0-33.0UnAs[facility]ab[facility] General Hospital Comment on above:Performed By: #### [id number] ####[facility] ([facility])[address] [place], [place] [address]QJW (RBC) [Entitic vol]88.1 eTOsqdts94.0-98.0 [facility] HospitalComment on above:Performed By: #### [id number] ####[facility] ([facility])[address] [place], [place] [address]Wvdmealdy (Bld) [#/Vol]0.56 10*3/uLNormal0.10-1.00UnAshtabula General HospitalComment on above:Performed By: #### [id number] ####[facility] ([facility])[address] [place], [place] [address]Vxaufbdvr/100 WBC (Bld)10.3 %Normal5.0-12.0UnAshtabula General HospitalComment on above:Performed By: #### [id number] ####[facility] ([facility])[address] [facility] [place] [address]Wpuxojesnck (Bld) [#/Vol] 2.91 10*3/uLNormal1.60-7.60UnAshtabula General HospitalComment on above: Performed By: #### [id number] ####[facility] ([facility])[address] [place], [place] [address]Fexkmxhlgtk/100 WBC (Bld)53.6 %Wkxywc14.0-72.0UnAshtabula General HospitalComment on above:Performed By: #### [id number] ####[facility] [place] [address]ZUAD (PER 100 WBCS) BY AUTOMATED COUNT0.0 %Oyihxk7YvyegfvyneAshtabula General HospitalComment on above: Performed By: #### [id number] ####[facility] ([facility])[address] [place] [address]KBCEJVALU (10*3/UL) IN BLOOD AUTOMATED [id number] 10*3/uLNormal 150-400UnAshtabula General HospitalComment on above:Performed By: #### [id number] ####[facility] ([facility])[address] [place], [place] [address]WKK (Bld) [#/Vol]3.27 10*6/uLLow3.80-5.00UnAshtabula General HospitalComment on above:Performed By: #### [id number] ####[facility] ([facility])[address] [place], [place] [address]LRV (Bld) [#/Vol]5.43 10*3/uLNormal4.00-10.60UnAshtabula General HospitalComment on above:Performed By: #### [id number] ####[facility] ([facility])[address] [place], [place] [address]VCSEDBROKK WITH MICROSCOPICon 19-95-0295XMVAZOZNP, TOTAL PRESENCE IN URINENegativeNormalNegative [facility] HospitalComment on above:Performed By: #### [id number] #### [facility] [address] [place], [place] [address]Jlyvkdb (U)ClearNormalClearUnAshtabula General Hospital Comment on above:Performed By: #### [id number] #### [facility] ([facility]) [address] [place], [place] [address]Eeuke (U)Light-YellowNormalColorless, Yellow, Light-Yellow [facility] HospitalComment on above:Performed By: #### [id number] #### [facility] ([facility]) [address] [place], [place] [address]UWMRVUZ (MG/DL) IN URINENormalNormalNormalUniversMercy Health St. Anne HospitalComment on above:Performed By: #### [id number] #### [facility] ([facility]) [address] [place], [place] [address]BCVZKYGDQB PRESENCE IN URINENegativeNormalNegativeUnAshtabula General HospitalComment on above:Performed By: #### [id number] #### [facility] ([facility]) [address] [place], [place] [address]Ccyyxrb Ql (U)NegativeNormalNegativeUnAshtabula General HospitalComment on above:Performed By: #### [id number] #### [facility] ([facility]) [address] [place], [place] [address]JEKYCNSYA ESTERASE PRESENCE IN URINE BY TEST STRIPNegativeNormal NegativeAkron Children's HospitalComment on above:Performed By: #### [id number] #### [facility] ([facility]) [address] [place], [place] [address]MUPXOYQ PRESENCE IN URINENegativeNormalNegativeUnAshtabula General HospitalComment on above:Performed By: #### [id number] #### [facility] ([facility]) [address] [place], [place] [address]tF (U)6.0 [pH]Normal5.0-8.0UnAshtabula General Hospital Comment on above:Performed By: #### [id number] #### [facility] ([facility]) [address] [place], [place] [address]Ehqifnc (U) [Mass/Vol]30 mg/dLAbnormalNegativeUnAshtabula General HospitalComment on above:Performed By: #### [id number] #### [facility] ([facility]) [address] [place], [place] [address]ZMV (#/HPF) IN URINE SEDIMENT0-2NormalNone Seen, 0-2UnAshtabula General HospitalComment on above:Performed By: #### [id number] #### [facility] ([facility]) [address] [place], [place] [address]Kozitfyl gravity (U) [Rel density]1.197Btpvqc7.010-1.030 [facility] HospitalComment on above:Performed By: #### [id number] #### [facility] ([facility]) [address] [place] [address]CAQRSGHL EPITHELIAL CELLS (#/LPF) IN URINE SEDIMENTOccasional NormalNone Seen, Occasional, FewUniversity Cleveland Clinic Euclid HospitalComment on above:Performed By: #### [id number] #### [facility] ([facility]) [address] [facility] [place], [place] [address]BDTTLJQVJKDD (MG/DL) IN URINENormalNormalNormalUniversMercy Health St. Anne HospitalComment on above:Performed By: #### [id number] #### [facility] ([facility]) [address] [place], [place] [address]JXC (LEUKOCYTE) (#/HPF) IN URINE SEDIMENT0-2NormalNone Seen, 0-2 [facility] HospitalComment on above:Performed By: #### [id number] #### [facility] ([facility]) [address] [place], [place] [address]cv [id number] patient is Moderately Stable - Low risk [...] level of function Outcome: Progressing Flowsheets (Taken 03/18/2025 2100) Return mobility to safest level of function: Assess patient stability and activity tolerance for standing, transferring and ambulating with or without assistive devicesNormalUniversMercy Health St. Anne HospitalBASIC METABOLIC PANEL on 05-93-9087Cihfp gap [Moles/Vol]12 mmol/LNormal7-20UnAshtabula General HospitalComment on above:Performed By: #### [id number] #### [facility] ([facility]) [address] [place], [place] [address]Ffemwve [Mass/Vol]8.7 mg/dLNormal8.6-10.3UnAshtabula General HospitalComment on above:Performed By: #### [id number] #### [facility] ([facility]) [address] [place], [place] [address]Klnnairi [Moles/Vol]106 mmol/CZnueuc59-535FafwiubfgmAshtabula General HospitalComment on above:Performed By: #### [id number] #### [facility] ([facility]) [address] [place], [place] [address]MN[address] [Moles/Vol]22 mmol/QSpxxwd81-73YwtrhibuijAshtabula General HospitalComment on above:Performed By: #### [id number] #### [facility] ([facility]) [address] [place], [place] [address]Mfgyqlhtbl [Mass/Vol]3.69 mg/dLHigh0.60-1.20UnAshtabula General HospitalComment on above:Performed By: #### [id number] #### [facility] ([facility]) [address] [place], [place] [address]UKWGXUGJQS FILTRATION RATE ML/MIN/1.73 SQ M.HZLCBEFKC16.3 mL/min/1.73m*2Low>60.0UnAshtabula General HospitalComment on above:Result Comment: [facility]???s estimated glomerular filtration rate (eGFR) will [...] affect anyone group of individuals.Performed By: #### [id number] #### [facility] ([facility]) [address] [facility] [place], [place] [address]Pztihnq [Mass/Vol]85 mg/kYWfenpp33-397CaqrjwqywmAshtabula General HospitalComment on above:Performed By: #### [id number] #### [facility] ([facility]) [address] [place], [place] [address]Zpdlbnyxf [Moles/Vol]5.1 mmol/LNormal3.5-5.1UnAshtabula General HospitalComment on above:Performed By: #### [id number] #### [facility] ([facility]) [address] [place], [place] [address]Guhbvi [Moles/Vol]135 mmol/DEmi350-271CxnoptrvduAshtabula General HospitalComment on above:Performed By: #### [id number] #### [facility] ([facility]) [address] [place], [place] [address]Krvc nitrogen [Mass/Vol]68 mg/dLHigh7-25UnAshtabula General HospitalComment on above:Performed By: #### [id number] #### [facility] ([facility]) [address] [place], [place] [address]FODK NITROGEN/CREATININE (MASS RATIO) IN SER/PLAS18.4Normal [facility] HospitalComment on above:Performed By: #### [id number] #### [facility] ([facility]) [address] [place], [place] [address]FLH WITH AUTO DIFFERENTIALon 05-35-3772Amkuaxiuw (Bld) [#/Vol] 0.04 10*3/uLNormal0.00-0.20UnAshtabula General HospitalComment on above: Performed By: #### [id number] #### [facility] ([facility]) [address] [facility] [place] [address]Fjhjltvuq/100 WBC (Bld)0.7 %Normal0.0-1.0UnAshtabula General HospitalComment on above:Performed By: #### [id number] #### [facility] ([facility]) [address] [place] [address]Shlylviiitv (Bld) [#/Vol]0.27 10*3/uLNormal0.00-0.50UnAshtabula General HospitalComment on above:Performed By: #### [id number] #### [facility] ([facility]) [address] [place] [address]Bzjgnfiiwqr/100 WBC (Bld)4.9 %Normal0.0-6.0UnAshtabula General HospitalComment on above:Performed By: #### [id number] #### [facility] ([facility]) [address] [place] [address]Eyxprhzmnpw distribution width (RBC) [Ratio]16.4 %High11.5-15.0 [facility] HospitalComment on above:Performed By: #### [id number] #### [facility] ([facility]) [address] [place] [address]BVFFHUJRPFE MEAN CORPUSCULAR HEMOGLOBIN CONCENTRATION (G/DL) BY XMYLVAEEH87.5 g/kZTioivd08.0-35.0UnAshtabula General HospitalComment on above:Performed By: #### [id number] #### [facility] ([facility]) [address] [place] [address]Wvnvfjsnxt (Bld) [Volume fraction]29.5 %Low36.0-45.0UnAshtabula General HospitalComment on above:Performed By: #### [id number] #### [facility] ([facility]) [address] [place] [address]Hmwjzerjiw (Bld) [Mass/Vol]9.6 g/dLLow12.0-15.0UnAshtabula General HospitalComment on above:Performed By: #### [id number] #### [facility] ([facility]) [address] [place], [place] [address]Fbjdlxcl granulocytes (Bld) [#/Vol]0.02 10*3/uLNormal0.00-0.20 [facility] HospitalComment on above:Performed By: #### [id number] #### [facility] ([facility]) [address] [place], [place] [address]Kksiazrk granulocytes/100 WBC (Bld)0.4 %Normal0.0-1.0UnAshtabula General HospitalComment on above:Performed By: #### [id number] #### [facility] ([facility]) [address] [place], [place] [address]Lyfuevinelp (Bld) [#/Vol]1.76 10*3/uLNormal1.20-4.00UnAshtabula General HospitalComment on above:Performed By: #### [id number] #### [facility] ([facility]) [address] [place], [place] [address]Cphwdjxmzrd/100 WBC (Bld)32.1 %Znyxez81.0-45.0UnAshtabula General HospitalComment on above:Performed By: #### [id number] #### [facility] ([facility]) [address] [place], [place] [address]PNE (RBC) [Entitic mass]29.3 nxQlmcfb50.0-33.0UnAshtabula General HospitalComment on above:Performed By: #### [id number] #### [facility] ([facility]) [address] [place], [place] [address]QKY (RBC) [Entitic vol]89.9 xDDszudp15.0-98.0UnAshtabula General HospitalComment on above:Performed By: #### [id number] #### [facility] ([facility]) [address] [place], [place] [address]Acbfjykzq (Bld) [#/Vol]0.54 10*3/uLNormal0.10-1.00UnAshtabula General HospitalComment on above:Performed By: #### [id number] #### [facility] ([facility]) [address] [place] [address]Zxjtsjcmh/100 WBC (Bld)9.8 %Normal5.0-12.0UnAshtabula General HospitalComment on above:Performed By: #### [id number] #### [facility] ([facility]) [address] [place] [address]Knrqjttyqaf (Bld) [#/Vol]2.86 10*3/uLNormal1.60-7.60UnAshtabula General HospitalComment on above:Performed By: #### [id number] #### [facility] ([facility]) [address] [place] [address]Vapkntxptnb/100 WBC (Bld)52.1 %Wfxels48.0-72.0UnAshtabula General HospitalComment on above:Performed By: #### [id number] #### [facility] ([facility]) [address] [place] [address]IEBU (PER 100 WBCS) BY AUTOMATED COUNT0.0 %Xhtzqe3GgdeszansyAshtabula General HospitalComment on above:Performed By: #### [id number] #### [facility] ([facility]) [address] [place] [address]CFVYDGMZE (10*3/UL) IN BLOOD AUTOMATED [id number] 10*3/uLNormal 150-400UnAshtabula General HospitalComment on above:Performed By: #### [id number] #### [facility] ([facility]) [address] [place] [address]GXM (Bld) [#/Vol]3.28 10*6/uLLow3.80-5.00UnAshtabula General HospitalComment on above:Performed By: #### [id number] #### [facility] ([facility]) [address] [place] [address]HDH (Bld) [#/Vol]5.49 10*3/uLNormal4.00-10.60UnAshtabula General HospitalComment on above:Performed By: #### [id number] #### [facility] [address] [place], [place] [address]TAML GLUCOSE METER UNSOLICITED RESULTSon 71-61-6541Jzipvkk [Mass/Vol]116 mg/mIXvhq95-480YvhumyogreAshtabula General HospitalComment on above:Order Comment: Waived Testing in the ED is performed under the ED CLIA certificate #[id number].Result Comment: njjekvg6Gozrkwxng By: #### [id number] ####[facility] ([facility])[address] [place], [place] [address]Norzluv [Mass/Vol]130 mg/aVBtlx81-129WnqllzgpfqAshtabula General HospitalComment on above:Order Comment: Waived Testing in the ED is performed under the ED CLIA certificate #[id number].Result Comment: [email or web address] By: #### [id number] #### [facility] ([facility]) [address] [place], [place] [address]Djrnita [Mass/Vol]114 mg/cPVyhb15-044LwmtylnmtlAshtabula General HospitalComment on above:Order Comment: Waived Testing in the ED is performed under the ED CLIA certificate #[id number].Result Comment: [email or web address] Performed By: #### [id number] ####[facility] ([facility])[address] [place] [id number] [id number] patient is Moderately Stable - Low risk of patient condition declining or worsening The patient's goals for the shift include Comfort, rest The clinical goals for the shift include Stable vitals and labs, comfort, rest, safetyNormalUniversity [facility] Clinic Euclid HospitalBASIC METABOLIC PANELon [id number] gap [Moles/Vol]11 mmol/LNormal7-20UnAshtabula General HospitalComment on above:Performed By: #### [id number] #### [facility] [address] [place], [place] [address]Qlwdwfk [Mass/Vol]8.6 mg/dLNormal8.6-10.3UnAshtabula General HospitalComment on above:Performed By: #### [id number] #### [facility] ([facility]) [address] [place] [address]Dxmujqok [Moles/Vol]106 mmol/HYaurlj32-291YuuulwfyeuAshtabula General HospitalComment on above:Performed By: #### [id number] #### [facility] ([facility]) [address] [place] [address]HE0 [Moles/Vol]23 mmol/KVsokku69-60JokutrmomsAshtabula General HospitalComment on above:Performed By: #### [id number] #### [facility] ([facility]) [address] [place] [address]Rguuvrrcbd [Mass/Vol]3.61 mg/dLHigh0.60-1.20UnAshtabula General HospitalComment on above:Performed By: #### [id number] #### [facility] ([facility]) [address] [place] [address]BWVTVWXOIL FILTRATION RATE ML/MIN/1.73 SQ M.GYSZQZAEK86.6 mL/min/1.73m*2Low>60.0UnAshtabula General HospitalComment on above:Result Comment: [facility]???s estimated glomerular filtration rate (eGFR) will [...] group of individuals.Performed By: #### [id number] #### [facility] ([facility]) [address] [place] [address]Lllfjld [Mass/Vol]91 mg/zWYveytc45-801OyjtxidbszAshtabula General HospitalComment on above:Performed By: #### [id number] #### [facility] [facility] ([facility]) [address] [place], [place] [address]Edgsewtfv [Moles/Vol]5.0 mmol/LNormal3.5-5.1UnAshtabula General HospitalComment on above:Performed By: #### [id number] #### [facility] ([facility]) [address] [place] [address]Hztmhr [Moles/Vol]135 mmol/SNth408-355VgigilcjwbAshtabula General HospitalComment on above:Performed By: #### [id number] #### [facility] ([facility]) [address] [place] [address]Owdn nitrogen [Mass/Vol]61 mg/dLHigh7-25UnAshtabula General HospitalComment on above:Performed By: #### [id number] #### [facility] ([facility]) [address] [place] [address]ASZU NITROGEN/CREATININE (MASS RATIO) IN SER/PLAS16.9Normal [facility] HospitalComment on above:Performed By: #### [id number] #### [facility] ([facility]) [address] [place], [place] [address]WSN WITH AUTO DIFFERENTIALon 14-93-9202Cszorgsfc (Bld) [#/Vol] 0.02 10*3/uLNormal0.00-0.20UnAshtabula General HospitalComment on above: Performed By: #### [id number] ####[facility] ([facility])[address] [place], [place] [address]Rtnnzqsvq/100 WBC (Bld)0.3 %Normal0.0-1.0UnAshtabula General HospitalComment on above:Performed By: #### [id number] ####[facility] ([facility])[address] [place], [place] [address]Zcobpmciwpp (Bld) [#/Vol]0.21 10*3/uL Normal0.00-0.50UnAshtabula General HospitalComment on above:Performed By: #### [id number] ####[facility] ([facility])[address] [place] [address] Eosinophils/100 WBC (Bld)3.3 %Normal0.0-6.0UnAshtabula General Hospital Comment on above:Performed By: #### [id number] ####[facility] ([facility])[address] [place], [place] [address]Xlshxnkvwju distribution width (RBC) [Ratio]16.3 % High11.5-15.0UnAshtabula General HospitalComment on above:Performed By: #### [id number] ####[facility] ([facility])[address] [place] [address] ERYTHROCYTE MEAN CORPUSCULAR HEMOGLOBIN CONCENTRATION (G/DL) BY OQCVSTTJX50.0 g/rYKdqrod99.0-35.0UnAshtabula General HospitalComment on above:Performed By: #### [id number] ####[facility] ([facility])[address] [place], [place] [address]Pawqmthycx (Bld) [Volume fraction]29.7 %Low36.0-45.0UnAshtabula General HospitalComment on above:Performed By: #### [id number] ####[facility] ([facility])[address] [place], [place] [address]Bifrizgbqe (Bld) [Mass/Vol]9.8 g/dLLow 12.0-15.0UnAshtabula General HospitalComment on above:Performed By: #### [id number] ####[facility] ([facility])[address] [place], [place] [address]Atbksrqb granulocytes (Bld) [#/Vol]0.02 10*3/uLNormal0.00-0.20UnAshtabula General HospitalComment on above:Performed By: #### [id number] ####[facility] [place], [place] [address]Eftymzvh granulocytes/100 WBC (Bld)0.3 %Normal0.0-1.0UnAshtabula General HospitalComment on above:Performed By: #### [id number] ####[facility] ([facility] [place] [address] Lymphocytes (Bld) [#/Vol]1.61 10*3/uLNormal1.20-4.00UnAshtabula General HospitalComment on above:Performed By: #### [id number] ####[facility] ([facility])[address] [place] [address]Ranhfrgyybw/100 WBC (Bld)25.6 %Normal 20.0-45.0UnAshtabula General HospitalComment on above:Performed By: #### [id number] ####[facility] ([facility])[address] [place] [address]KVR (RBC) [Entitic mass]29.3 ljBgsizb25.0-33.0UnAshtabula General Hospital Comment on above:Performed By: #### [id number] ####[facility] ([facility])[address] [place], [place] [address]ZND (RBC) [Entitic vol]88.7 jONrcmzk27.0-98.0 [facility] HospitalComment on above:Performed By: #### [id number] ####[facility] ([facility])[address] [place], [place] [address]Grhzefyum (Bld) [#/Vol]0.58 10*3/uLNormal0.10-1.00UnAshtabula General HospitalComment on above:Performed By: #### [id number] ####[facility] ([facility])[address] [place], [place] [address]Iwbdyhjcw/100 WBC (Bld)9.2 %Normal5.0-12.0UnAshtabula General HospitalComment on above:Performed By: #### [id number] ####[facility] ([facility])[address] [place], [place] [address]Fgoestkxjsw (Bld) [#/Vol] 3.85 10*3/uLNormal1.60-7.60UnAshtabula General HospitalComment on above: Performed By: #### [id number] ####[facility] ([facility])[address] [place], [place] [address]Siizwtcluvf/100 WBC (Bld)61.3 %Wyywav91.0-72.0UnAshtabula General HospitalComment on above:Performed By: #### [id number] ####[facility] ([facility])[address] [place] [address]AARX (PER 100 WBCS) BY AUTOMATED COUNT0.0 %Esdsfu2ZtjoxbwrexAshtabula General HospitalComment on above: Performed By: #### [id number] ####[facility] ([facility])[address] [facility] [place] [address]LRUJKLRES (10*3/UL) IN BLOOD AUTOMATED [id number] 10*3/uLNormal 150-400UnAshtabula General HospitalComment on above:Performed By: #### [id number] ####[facility] ([facility])[address] [place] [address]DCP (Bld) [#/Vol]3.35 10*6/uLLow3.80-5.00UnAshtabula General HospitalComment on above:Performed By: #### [id number] ####[facility] ([facility])[address] [place], [place] [address]QPZ (Bld) [#/Vol]6.29 10*3/uLNormal4.00-10.60UnAshtabula General HospitalComment on above:Performed By: #### [id number] ####[facility] ([facility])[address] [place] [address]FJGRGFNbn 03-17-2025 CONSULTdischarge planning: to Home with Home [...] can provide Agency of Choice once accepting C providers found discharge barriers: [] need C choices, then accepting [] will need insurance precert for any placement from this admission [] NormalUnAshtabula General HospitalPOCT GLUCOSE METER UNSOLICITED RESULTSon 93-65-7305Noardhw [Mass/Vol]121 mg/kQTxxu26-730IympknwvmuAshtabula General HospitalComment on above:Order Comment: Waived Testing in the ED is performed under the ED CLIA certificate #[id number].Result Comment: [email or web address] Performed By: #### [id number] #### [facility] ([facility]) [address] [place], [place] [address]Rgrhhgf [Mass/Vol]148 mg/cRWqid58-042KgwigyjuxvAshtabula General HospitalComment on above:Order Comment: Waived Testing in the ED is performed under the ED CLIA certificate #[id number].Result Comment: [email or web address] Performed By: #### [id number] #### [facility] ([facility]) [address] [place], [place] [address]Pkeznbo [Mass/Vol]161 mg/cKVqds13-949BviktoqdrrAshtabula General HospitalComment on above:Order Comment: Waived Testing in the ED is performed under the ED CLIA certificate #[id number].Result Comment: [email or web address] Performed By: #### [id number] #### [facility] ([facility]) [address] [place], [place] [address]NYNDZ METABOLIC PANELon 43-90-8293Aruji gap [Moles/Vol]10 mmol/L Normal7-20UnAshtabula General HospitalComment on above:Performed By: #### [id number] ####[facility] ([facility])[address] [place], [place] [address]Ryjshjh [Mass/Vol]8.6 mg/dLNormal8.6-10.3UnAshtabula General HospitalComment on above:Performed By: #### [id number] ####[facility] ([facility])[address] [place], [place] [address]Yfbziujv [Moles/Vol]106 mmol/DNqulqw53-190VyoizovxohAshtabula General HospitalComment on above:Performed By: #### [id number] ####[facility] ([facility])[address] [place] [address]OB8 [Moles/Vol]23 mmol/LNormal 21-31UnAshtabula General HospitalComment on above:Performed By: #### [id number] ####[facility] ([facility])[address] [place] [address]Rbsiizaxfr [Mass/Vol]3.39 mg/dLHigh0.60-1.20UnAshtabula General HospitalComment on above:Performed By: #### [id number] ####[facility] ([facility])[address] [place] [address]XWTAOYWWAV FILTRATION RATE ML/MIN/1.73 SQ M.VLKINIIJN81.6 mL/min/1.73m*2Low>60.0UnAshtabula General HospitalComment on above:Result Comment: [facility]???s estimated glomerular filtration rate (eGFR) will [...] anyone group of individuals.Performed By: #### [id number] ####[facility] ([facility])[address] [place] [address]Mwtfagm [Mass/Vol]101 mg/jZKevu70-962BywsmaufkxAshtabula General HospitalComment on above:Performed By: #### [id number] ####[facility] ([facility])[address] [place] [address]Ybqoopuej [Moles/Vol]4.5 mmol/L Normal3.5-5.1UnAshtabula General HospitalComment on above:Performed By: #### [id number] ####[facility] ([facility])[address] [place] [address] Sodium [Moles/Vol]134 mmol/CUab555-672AnsimrpblhAshtabula General HospitalComment on above:Performed By: #### [id number] ####[facility] ([facility])[address] [place] [address]Gjml nitrogen [Mass/Vol]53 mg/dLHigh7-25UnAshtabula General HospitalComment on above:Performed By: #### [id number] ####[facility] ([facility])[address] [place] [address]OPDI NITROGEN/CREATININE (MASS RATIO) IN SER/PLAS15.6NormalUniversMer[address] Health [address] Anne HospitalComment on above: Performed By: #### [id number] ####[facility] ([facility])[address] [place] [address]OQO WITH AUTO DIFFERENTIALon 08-26-2449Lxgezfuvw (Bld) [#/Vol]0.03 10*3/uLNormal0.00-0.20UnAshtabula General HospitalComment on above: Performed By: #### [id number] #### [facility] ([facility]) [address] [place], [place] [address]Pkjqgxuot/100 WBC (Bld)0.6 %Normal0.0-1.0UnAshtabula General HospitalComment on above:Performed By: #### [id number] #### [facility] ([facility]) [address] [place] [address]Rhyeilwtczp (Bld) [#/Vol]0.21 10*3/uLNormal0.00-0.50UnAshtabula General HospitalComment on above:Performed By: #### [id number] #### [facility] ([facility]) [address] [place], [place] [address]Ymymmhcqmvy/100 WBC (Bld)4.0 %Normal0.0-6.0UnAshtabula General HospitalComment on above:Performed By: #### [id number] #### [facility] ([facility]) [address] [place] [address]Cegclfnpevp distribution width (RBC) [Ratio]16.3 %High11.5-15.0 [facility] HospitalComment on above:Performed By: #### [id number] #### [facility] ([facility]) [address] [place] [address]BWQHBITDUSF MEAN CORPUSCULAR HEMOGLOBIN CONCENTRATION (G/DL) BY MWMUADJTY20.9 g/iTVtsbdg94.0-35.0UnAshtabula General HospitalComment on above:Performed By: #### [id number] #### [facility] ([facility]) [address] [place] [address]Avmzbfezfw (Bld) [Volume fraction]31.6 %Low36.0-45.0UnAshtabula General HospitalComment on above:Performed By: #### [id number] #### [facility] ([facility]) [address] [place] [address]Srzwqlndni (Bld) [Mass/Vol]10.4 g/dLLow12.0-15.0UnAshtabula General HospitalComment on above:Performed By: #### [id number] #### [facility] ([facility]) [address] [place] [address]Wntvpmqs granulocytes (Bld) [#/Vol]0.01 10*3/uLNormal0.00-0.20 [facility] HospitalComment on above:Performed By: #### [id number] #### [facility] ([facility]) [address] [place] [address]Mqhebkrm granulocytes/100 WBC (Bld)0.2 %Normal0.0-1.0UnAshtabula General HospitalComment on above:Performed By: #### [id number] #### [facility] ([facility]) [address] [place] [address]Mdniidoyqrw (Bld) [#/Vol]1.52 10*3/uLNormal1.20-4.00UnAshtabula General HospitalComment on above:Performed By: #### [id number] #### [facility] ([facility]) [address] [place] [address]Ljhlddnesjj/100 WBC (Bld)28.8 %Mhsbmw83.0-45.0UnAshtabula General HospitalComment on above:Performed By: #### [id number] #### [facility] ([facility]) [address] [place] [address]WFX (RBC) [Entitic mass]29.5 wwVrcsje24.0-33.0UnAshtabula General HospitalComment on above:Performed By: #### [id number] #### [facility] ([facility]) [address] [facility] [place] [address]OIT (RBC) [Entitic vol]89.5 dTLyuqox74.0-98.0UnAshtabula General HospitalComment on above:Performed By: #### [id number] #### [facility] ([facility]) [address] [place] [address]Ardstgmhn (Bld) [#/Vol]0.53 10*3/uLNormal0.10-1.00UnAshtabula General HospitalComment on above:Performed By: #### [id number] #### [facility] ([facility]) [address] [place] [address]Zhqvozgju/100 WBC (Bld)10.0 %Normal5.0-12.0UnAshtabula General HospitalComment on above:Performed By: #### [id number] #### [facility] ([facility]) [address] [place], [place] [address]Iiechcammzg (Bld) [#/Vol]2.98 10*3/uLNormal1.60-7.60UnAshtabula General HospitalComment on above:Performed By: #### [id number] #### [facility] ([facility]) [address] [place] [address]Ilqhqxxyvgn/100 WBC (Bld)56.4 %Pyrglj91.0-72.0UnAshtabula General HospitalComment on above:Performed By: #### [id number] #### [facility] ([facility]) [address] [place] [address]YYXX (PER 100 WBCS) BY AUTOMATED COUNT0.0 %Yuzslm5CoqvokslymAshtabula General HospitalComment on above:Performed By: #### [id number] #### [facility] ([facility]) [address] [place] [address]WGROIOWHC (10*3/UL) IN BLOOD AUTOMATED [id number] 10*3/uLNormal 150-400UnAshtabula General HospitalComment on above:Performed By: #### [id number] #### [facility] ([facility]) [address] [place] [address]JET (Bld) [#/Vol]3.53 10*6/uLLow3.80-5.00UnAshtabula General HospitalComment on above:Performed By: #### [id number] #### [facility] ([facility]) [address] [place] [address]IEJ (Bld) [#/Vol]5.28 10*3/uLNormal4.00-10.60UnAshtabula General HospitalComment on above:Performed By: #### [id number] #### [facility] ([facility]) [address] [place] [address]GNJF GLUCOSE METER UNSOLICITED RESULTSon 02-78-2250Zifviww [Mass/Vol]102 mg/kBIjgoph38-920ZhjijuwmecAshtabula General HospitalComment on above:Order Comment: Waived Testing in the ED is performed under the ED CLIA certificate #[id number].Result Comment: [email or web address] By: #### [id number] ####[facility] ([facility])[address] [place] [address]Jllxgti [Mass/Vol]95 mg/fZHzhcbr63-639TxjvpamdsxAshtabula General HospitalComment on above:Order Comment: Waived Testing in the ED is performed under the ED CLIA certificate #[id number].Result Comment: astonekingPerformed By: #### [id number] #### [facility] ([facility]) [address] [place], [place] [address]Qxvhpru [Mass/Vol]130 mg/lSSuyr76-879XnwcuwrhlaAshtabula General HospitalComment on above:Order Comment: Waived Testing in the ED is performed under the ED CLIA certificate #[id number].Result Comment: astoneking Performed By: #### [id number] ####[facility] ([facility])[address] [place], [place] [address]Tilljcl [Mass/Vol]102 mg/bUMuumpu80-632KvohjlohmyAshtabula General HospitalComment on above:Order Comment: Waived Testing in the ED is performed under the ED CLIA certificate #[id number].Result Comment: astoneking Performed By: #### [id number] ####[facility] ([facility])[address] [place], [place] [address]JLKHZ METABOLIC PANELon 65-31-4521Irfcs gap [Moles/Vol]10 mmol/LNormal7-20UnAshtabula General HospitalComment on above:Performed By: #### [id number] #### [facility] [address] [place], [place] [address]Hibwewg [Mass/Vol]8.9 mg/dLNormal8.6-10.3UnAshtabula General HospitalComment on above:Performed By: #### [id number] #### [facility] [address] [place], [place] [address]Znlvgquu [Moles/Vol]104 mmol/YZvcilx66-143YjxakoesgpAshtabula General HospitalComment on above:Performed By: #### [id number] #### [facility] ([facility]) [address] [place], [place] [address]ZE1 [Moles/Vol]24 mmol/PJfldxc06-00IakbolqtcwAshtabula General HospitalComment on above:Performed By: #### [id number] #### [facility] ([facility]) [address] [place], [place] [address]Qnbkzjojre [Mass/Vol]3.21 mg/dLHigh0.60-1.20UnAshtabula General HospitalComment on above:Performed By: #### [id number] #### [facility] ([facility]) [address] [place] [address]OWQFUFBMOF FILTRATION RATE ML/MIN/1.73 SQ M.TRJMUPZVL73.5 mL/min/1.73m*2Low>60.0UnAshtabula General HospitalComment on above:Result Comment: [facility]???s estimated glomerular filtration rate (eGFR) will [...] group of individuals.Performed By: #### [id number] #### [facility] ([facility]) [address] [place] [address]Gvlrgkq [Mass/Vol]103 mg/zQSrkj32-899TntidsaenrAshtabula General HospitalComment on above:Performed By: #### [id number] #### [facility] ([facility]) [address] [place] [address]Fptamtfah [Moles/Vol]4.7 mmol/LNormal3.5-5.1UnAshtabula General HospitalComment on above:Performed By: #### [id number] #### [facility] ([facility]) [address] [place] [address]Ytsxeu [Moles/Vol]133 mmol/TNso523-270IfdlegklymAshtabula General HospitalComment on above:Performed By: #### [id number] #### [facility] ([facility]) [address] [place] [address]Bdwd nitrogen [Mass/Vol]45 mg/dLHigh7-25UnAshtabula General HospitalComment on above:Performed By: #### [id number] #### [facility] ([facility]) [address] [place], [place] [address]JOKS NITROGEN/CREATININE (MASS RATIO) IN SER/PLAS14.0Normal [facility] HospitalComment on above:Performed By: #### [id number] #### [facility] ([facility]) [address] [facility] [place], [place] [address]XDD WITH AUTO DIFFERENTIALon 46-62-5760Jfujjixjp (Bld) [#/Vol] 0.05 10*3/uLNormal0.00-0.20UnAshtabula General HospitalComment on above: Performed By: #### [id number] #### [facility] ([facility]) [address] [place], [place] [address]Nbzhkffqk/100 WBC (Bld)0.8 %Normal0.0-1.0UnAshtabula General HospitalComment on above:Performed By: #### [id number] #### [facility] ([facility]) [address] [place], [place] [address]Zyzoxrqubuq (Bld) [#/Vol]0.26 10*3/uLNormal0.00-0.50UnAshtabula General HospitalComment on above:Performed By: #### [id number] #### [facility] ([facility]) [address] [place], [place] [address]Msouompdktg/100 WBC (Bld)4.1 %Normal0.0-6.0UnAshtabula General HospitalComment on above:Performed By: #### [id number] #### [facility] ([facility]) [address] [place], [place] [address]Pklyatsgptz distribution width (RBC) [Ratio]16.1 %High11.5-15.0 [facility] HospitalComment on above:Performed By: #### [id number] #### [facility] ([facility]) [address] [place], [place] [address]ZHAQWKKSCBA MEAN CORPUSCULAR HEMOGLOBIN CONCENTRATION (G/DL) BY XAZFZXMZQ21.8 g/nLDahjzi92.0-35.0UnAshtabula General HospitalComment on above:Performed By: #### [id number] #### [facility] ([facility]) [address] [place] [address]Ruwzaopjyw (Bld) [Volume fraction]34.5 %Low36.0-45.0UnAshtabula General HospitalComment on above:Performed By: #### [id number] #### [facility] ([facility]) [address] [place] [address]Pxwdgieqtc (Bld) [Mass/Vol]11.3 g/dLLow12.0-15.0UnAshtabula General HospitalComment on above:Performed By: #### [id number] #### [facility] ([facility]) [address] [facility] [facility], [place] [address]Kubsmwkz granulocytes (Bld) [#/Vol]0.02 10*3/uLNormal0.00-0.20 [facility] HospitalComment on above:Performed By: #### [id number] #### [facility] ([facility]) [address] [facility] [place], [place] [address]Yhlwjzve granulocytes/100 WBC (Bld)0.3 %Normal0.0-1.0UnAshtabula General HospitalComment on above:Performed By: #### [id number] #### [facility] ([facility]) [address] [place] [place], [place] [address]Blboiveaees (Bld) [#/Vol]1.80 10*3/uLNormal1.20-4.00UnAshtabula General HospitalComment on above:Performed By: #### [id number] #### [facility] ([facility]) [address] [facility] [place], [place] [address]Iimnvdkfopu/100 WBC (Bld)28.3 %Orbkro62.0-45.0UnAshtabula General HospitalComment on above:Performed By: #### [id number] #### [facility] ([facility]) [address] [facility] [place], [place] [address]KPI (RBC) [Entitic mass]29.0 wjQsmive22.0-33.0UnAshtabula General HospitalComment on above:Performed By: #### [id number] #### [facility] ([facility]) [address] [place] [address]AHW (RBC) [Entitic vol]88.5 oYKtdorn89.0-98.0UnAshtabula General HospitalComment on above:Performed By: #### [id number] #### [facility] ([facility]) [address] [place], [place] [address]Loyujepux (Bld) [#/Vol]0.67 10*3/uLNormal0.10-1.00UnAshtabula General HospitalComment on above:Performed By: #### [id number] #### [facility] ([facility]) [address] [place] [address]Avffiranj/100 WBC (Bld)10.5 %Normal5.0-12.0UnAshtabula General HospitalComment on above:Performed By: #### [id number] #### [facility] ([facility]) [address] [facility] [place], [place] [address]Roleinghefk (Bld) [#/Vol]3.57 10*3/uLNormal1.60-7.60UnAshtabula General HospitalComment on above:Performed By: #### [id number] #### [facility] ([facility]) [address] [place] [place], [place] [address]Nwsygmttmay/100 WBC (Bld)56.0 %Yzsdfp62.0-72.0UnAshtabula General HospitalComment on above:Performed By: #### [id number] #### [facility] ([facility]) [address] [place], [place] [address]JFLO (PER 100 WBCS) BY AUTOMATED COUNT0.0 %Shelzx9IcysjsekczAshtabula General HospitalComment on above:Performed By: #### [id number] #### [facility] ([facility]) [address] [place] [place], [place] [id number] (10*3/UL) IN BLOOD AUTOMATED [id number] 10*3/uLNormal 150-400UnAshtabula General HospitalComment on above:Performed By: #### [id number] #### [facility] ([facility]) [address] [place], [place] [address]FAZ (Bld) [#/Vol]3.90 10*6/uLNormal3.80-5.00UnAshtabula General HospitalComment on above:Performed By: #### [id number] #### [facility] ([facility]) [address] [facility] [place], [place] [address]ATU (Bld) [#/Vol]6.37 10*3/uLNormal4.00-10.60UnAshtabula General HospitalComment on above:Performed By: #### [id number] #### [facility] ([facility]) [address] [facility] [place], [place] [address]RVGZ GLUCOSE METER UNSOLICITED RESULTSon 29-46-6165Bkmwwkf [Mass/Vol]107 mg/iCLqzd57-515EulixguniaAshtabula General HospitalComment on above:Order Comment: Waived Testing in the ED is performed under the ED CLIA certificate #[id number].Result Comment: lraftisPerformed By: #### [id number] #### [facility] ([facility]) [address] [place], [place] [id number] [id number] patient is Moderately Unstable - Medium risk of patient condition declining or worsening The patient's goals for the shift include comfort/rest The clinical goals for the shift include stable vital signsNormalUniversity of Baylor Scott & White Medical Center – UptownALDOSTERONEon 43-06-9899WKCVYRWIEEH (NG/DL) IN SER/PLAS16.7 ng/dLNormalUniversity of Baylor Scott & White Medical Center – UptownComment on above:Order Comment: Contacted DEBORA elise and [...] reference intervals for this test in the [facility] Test Directory (Network Chemistry). Performed By: [facility] [address] [place] [id number] Sandwich Artist: Wilfrid Gomez MD, PhD CLIA Number: [id number] By: #### [id number] #### [facility] [address] [place], [place] [address]GORYG METABOLIC PANELon 71-92-4633Tsehd gap [Moles/Vol] 12 mmol/LNormal7-20UnAshtabula General HospitalComment on above:Performed By: #### [id number] ####[facility] (BEAKER)[address] [place] [address] Calcium [Mass/Vol]8.2 mg/dLLow8.6-10.3UnAshtabula General HospitalComment on above:Performed By: #### [id number] ####[facility] (BEAKER)[address] [place], [place] [address]Xbnynyre [Moles/Vol]104 mmol/ZGhthyw96-264ZbryxonmouAshtabula General HospitalComment on above:Performed By: #### [id number] ####[facility] ([facility]AKER)[address] [place], [place] [address]ZJ3 [Moles/Vol]21 mmol/LNormal 21-31UnAshtabula General HospitalComment on above:Performed By: #### [id number] ####[facility] (BEAKER)[address] [place], [place] [address]Lsmdacgygp [Mass/Vol]3.12 mg/dLHigh0.60-1.20UnAshtabula General HospitalComment on above:Performed By: #### [id number] ####[facility] (BEAKER)[address] [place], [place] [address]YLNEIFRKGQ FILTRATION RATE ML/MIN/1.73 SQ M.OCFRVLHZP32.0 mL/min/1.73m*2Low>60.0UnAshtabula General HospitalComment on above:Result Comment: [facility]???s estimated glomerular filtration rate (eGFR) will [...] anyone group of individuals.Performed By: #### [id number] ####[facility] ([facility])[address] [place], [place] [address]Pebkzwv [Mass/Vol]103 mg/sYUqxw53-578WxtxsbtngcAshtabula General HospitalComment on above:Performed By: #### [id number] ####[facility] ([facility])[address] [place], [place] [address]Xslpsqswf [Moles/Vol]5.0 mmol/L Normal3.5-5.1UnAshtabula General HospitalComment on above:Performed By: #### [id number] ####[facility] ([facility])[address] [place] [address] Sodium [Moles/Vol]132 mmol/RZnh634-668CyminuermkAshtabula General HospitalComment on above:Performed By: #### [id number] ####[facility] ([facility])[address] [place], [place] [address]Wbxc nitrogen [Mass/Vol]46 mg/dLHigh7-25UnAshtabula General HospitalComment on above:Performed By: #### [id number] ####[facility] ([facility])[address] [place], [place] [address]LOMO NITROGEN/CREATININE (MASS RATIO) IN SER/PLAS14.7NormalUniversMercy Health St. Anne HospitalComment on above: Performed By: #### [id number] ####[facility] ([facility])[address] [facility] [place] [address]CJB WITH AUTO DIFFERENTIALon 60-19-7435Lubvszwls (Bld) [#/Vol]0.06 10*3/uLNormal0.00-0.20UnAshtabula General HospitalComment on above: Performed By: #### [id number] ####[facility] ([facility])[address] [place], [place] [address]Xvixpyfjm/100 WBC (Bld)1.1 %High0.0-1.0UnAshtabula General HospitalComment on above:Performed By: #### [id number] ####[facility] ([facility])[address] [place], [place] [address]Gcmxcijwolf (Bld) [#/Vol]0.26 10*3/uL Normal0.00-0.50UnAshtabula General HospitalComment on above:Performed By: #### [id number] ####[facility] ([facility])[address] [place] [address] Eosinophils/100 WBC (Bld)4.8 %Normal0.0-6.0UnAshtabula General Hospital Comment on above:Performed By: #### [id number] ####[facility] ([facility])[address] [facility] [place], [place] [address]Kvavcozxrwv distribution width (RBC) [Ratio]16.4 % High11.5-15.0UnAshtabula General HospitalComment on above:Performed By: #### [id number] ####[facility] ([facility])[address] [place] [address] ERYTHROCYTE MEAN CORPUSCULAR HEMOGLOBIN CONCENTRATION (G/DL) BY IHCFDJWUH77.2 g/tHPvyguf35.0-35.0UnAshtabula General HospitalComment on above:Performed By: #### [id number] ####[facility] ([facility])[address] SIMRANPROM[facility] [place] [place], [place] [address]Leykdzoycm (Bld) [Volume fraction]33.9 %Low36.0-45.0UnAshtabula General HospitalComment on above:Performed By: #### [id number] ####[facility] (BEAKER)[address] [place], [place] [address]Ucnqpvdybf (Bld) [Mass/Vol]10.9 g/dL Low12.0-15.0UnAshtabula General HospitalComment on above:Performed By: #### [id number] ####[facility] ([facility])[address] [place] [address] Immature granulocytes (Bld) [#/Vol]0.02 10*3/uLNormal0.00-0.20UnAshtabula General HospitalComment on above:Performed By: #### [id number] ####[facility] ([facility])[address] [place], [place] [address]Tjypztjf granulocytes/100 WBC (Bld)0.4 %Normal0.0-1.0UnAshtabula General HospitalComment on above: Performed By: #### [id number] ####[facility] ([facility])[address] [place], [place] [address]Awwdiincfsw (Bld) [#/Vol]1.46 10*3/uLNormal1.20-4.00 [facility] HospitalComment on above:Performed By: #### [id number] ####[facility] (BEAKER)[address] [place], [place] [address]Xxoydldjxoj/100 WBC (Bld)27.1 %Yowrjr64.0-45.0UnAshtabula General HospitalComment on above:Performed By: #### [id number] ####[facility] ([facility])[address] [place], [place] [address]BED (RBC) [Entitic mass]29.2 wbKbfgsy95.0-33.0UnAshtabula General HospitalComment on above:Performed By: #### [id number] ####[facility] (BEAKER)[address] [place], [place] [address]IUM (RBC) [Entitic vol] 90.9 uVIclsro06.0-98.0UnAshtabula General HospitalComment on above: Performed By: #### [id number] ####[facility] (BEAKER)[address] [place] [address]Bvbglzlsp (Bld) [#/Vol]0.63 10*3/uLNormal0.10-1.00UnAshtabula General HospitalComment on above:Performed By: #### [id number] ####[facility] ([facility])[address] [place] [address]Xbilvwydv/100 WBC (Bld) 11.7 %Normal5.0-12.0UnAshtabula General HospitalComment on above: Performed By: #### [id number] ####[facility] ([facility])[address] [place], [place] [address]Wahiheakytp (Bld) [#/Vol]2.96 10*3/uLNormal1.60-7.60 [facility] HospitalComment on above:Performed By: #### [id number] ####[facility] ([facility])[address] [place] [address]Kwyytlsylro/100 WBC (Bld)54.9 %Oxyevv04.0-72.0UnAshtabula General HospitalComment on above:Performed By: #### [id number] ####[facility] ([facility])[address] [place] [address]QTKQ (PER 100 WBCS) BY AUTOMATED COUNT0.0 %Tsblhq7PnglzmeydoAshtabula General HospitalComment on above:Performed By: #### [id number] ####[facility] ([facility])[address] [place] [address]OMGDLAZYJ (10*3/UL) IN BLOOD AUTOMATED BGARS209 10*3/gSScijrn178-633SdnbtqetbbAshtabula General Hospital Comment on above:Performed By: #### [id number] ####[facility] (BEAKER)[address] [place], [place] [address]TYD (Bld) [#/Vol]3.73 10*6/uLLow3.80-5.00UnAshtabula General HospitalComment on above:Performed By: #### [id number] ####[facility] ([facility])[address] [place], [place] [address]NAO (Bld) [#/Vol]5.39 10*3/uLNormal4.00-10.60[facility] HospitalComforest health medical center on above: Performed By: #### [id number] ####[facility] ([facility])[address] [place], [place] [address]UBSX GLUCOSE METER UNSOLICITED RESULTSon 40-75-1469Htemifg [Mass/Vol]109 mg/bBPrup13-803VatevrzqwvAkron Children's HospitalComforest health medical center on above:Order Comment: Waived Testing in the ED is performed under the ED CLIA certificate #[id number].Result Comment: [email or web address] By: #### [id number] ####[facility] ([facility])[address] [place], [place] [address]Aanpfto [Mass/Vol]128 mg/oELntw55-038PbwcvghqigAkron Children's HospitalComforest health medical center on above:Order Comment: Waived Testing in the ED is performed under the ED CLIA certificate #[id number].Result Comment: [email or web address] By: #### [id number] #### [facility] ([facility]) [address] [place], [place] [address]Vdrlars [Mass/Vol]155 mg/rWUhbs66-523ZwgfgbflgmAkron Children's HospitalComment on above:Order Comment: Waived Testing in the ED is performed under the ED CLIA certificate #[id number].Result Comment: [email or web address] Performed By: #### [id number] #### [facility] ([facility]) [address] [place], [place] [address]Umqgqhy [Mass/Vol]109 mg/nIBfsc38-199SbdifpwihaAkron Children's HospitalComment on above:Order Comment: Waived Testing in the ED is performed under the ED CLIA certificate #[id number].Result Comment: [email or web address] Performed By: #### [id number] #### [facility] ([facility]) [address] [place], [place] [address]WXYUT ACTIVITYon 10-52-4129RIYBO ACTIVITY4.7 ng/mL/hrNoSycamore Medical CenterComment on above:Order Comment: Contacted DEBORA [...] developed and its performance characteristics determined by [facility]. It has not been cleared or approved by the [place] Food and Drug Administration. This test was performed in a CLIA certified laboratory and is intended for clinical purposes. Performed By: [facility] [address] [place] [address] Sandwich Artist: Wilfrid Gomez MD, PhD CLIA Number: [id number] By: #### [id number] ####[facility] (BEAKER)[address] [place], [place] [address]re [id number] patient is Moderately Stable - Low risk [...] needs and coordinate with support and continued care.NormalUnAshtabula General Hospital30The patient is Moderately Stable - Low [...] optimal renal function maintained Outcome: ProgressingNormalUniversity of [facility]30The patient is Moderately Stable - Low risk of patient condition declining or worsening The patient's goals for the shift include comfort and sleep The clinical goals for the shift include Stable vital signs, no falls, comfort NormalUnAshtabula General HospitalBASIC METABOLIC PANELon 54-38-6700Msisg gap [Moles/Vol]11 mmol/LNormal7-20UnAshtabula General HospitalComment on above:Performed By: #### [id number] #### [facility] (BEAKER) [address] [place] [address]Amdhttz [Mass/Vol]8.8 mg/dLNormal8.6-10.3UnAshtabula General HospitalComment on above:Performed By: #### [id number] #### [facility] ([facility]) [address] [place] [address]Dlwugyof [Moles/Vol]106 mmol/CViotlf07-047TaswqfihtfAshtabula General HospitalComment on above:Performed By: #### [id number] #### [facility] ([facility]) [address] [place] [address]OR[address] [Moles/Vol]25 mmol/SZwbzfk32-66BzrpimxbqsAshtabula General HospitalComment on above:Performed By: #### [id number] #### [facility] ([facility]) [address] [place] [address]Xwcqoogepj [Mass/Vol]2.41 mg/dLHigh0.60-1.20UnAshtabula General HospitalComment on above:Performed By: #### [id number] #### [facility] ([facility]) [address] [place] [address]KIDYFPABEN FILTRATION RATE ML/MIN/1.73 SQ M.YVVNORDVN14.4 mL/min/1.73m*2Low>60.0UnAshtabula General HospitalComment on above:Result Comment: [facility]???s estimated glomerular filtration rate (eGFR) will [...] group of individuals.Performed By: #### [id number] #### [facility] ([facility]) [address] [place] [address]Iigjpqr [Mass/Vol]82 mg/hTXjrjmj79-242KvjkotgiscAshtabula General HospitalComment on above:Performed By: #### [id number] #### [facility] ([facility]) [address] [place], [place] [address]Yfroieqds [Moles/Vol]3.9 mmol/LNormal3.5-5.1UnAshtabula General HospitalComment on above:Performed By: #### [id number] #### [facility] ([facility]) [address] [place], [place] [address]Gesiyw [Moles/Vol]138 mmol/LUmutpk976-642KzidvssqvmAshtabula General HospitalComment on above:Performed By: #### [id number] #### [facility] ([facility]) [address] [facility] [place], [place] [address]Wuap nitrogen [Mass/Vol]38 mg/dLHigh7-25UnAshtabula General HospitalComment on above:Performed By: #### [id number] #### [facility] ([facility]) [address] [place], [place] [address]KZWN NITROGEN/CREATININE (MASS RATIO) IN SER/PLAS15.8Normal [facility] HospitalComment on above:Performed By: #### [id number] #### [facility] ([facility]) [address] [facility] [place], [place] [address]BOC WITH AUTO DIFFERENTIALon 98-49-7450Irutdexrz (Bld) [#/Vol] 0.05 10*3/uLNormal0.00-0.20UnAshtabula General HospitalComment on above: Performed By: #### [id number] #### [facility] ([facility]) [address] [facility] [place], [place] [address]Vepkslomy/100 WBC (Bld)1.0 %Normal0.0-1.0UnAshtabula General HospitalComment on above:Performed By: #### [id number] #### [facility] ([facility]) [address] [facility] [place], [place] [address]Zqerpohyuxx (Bld) [#/Vol]0.14 10*3/uLNormal0.00-0.50UnAshtabula General HospitalComment on above:Performed By: #### [id number] #### [facility] (BEAKER) [address] [place] [address]Rptwposvqou/100 WBC (Bld)2.7 %Normal0.0-6.0UnAshtabula General HospitalComment on above:Performed By: #### [id number] #### [facility] ([facility]) [address] [place] [address]Fpgklmevxyo distribution width (RBC) [Ratio]16.6 %High11.5-15.0 [facility] HospitalComment on above:Performed By: #### [id number] #### [facility] ([facility]) [address] [place] [address]VKJBROPIHEV MEAN CORPUSCULAR HEMOGLOBIN CONCENTRATION (G/DL) BY OPUTTLCTF35.4 g/cSIoayga40.0-35.0UnAshtabula General HospitalComment on above:Performed By: #### [id number] #### [facility] ([facility]) [address] [place] [address]Jbwmqqsbgx (Bld) [Volume fraction]34.9 %Low36.0-45.0UnAshtabula General HospitalComment on above:Performed By: #### [id number] #### [facility] ([facility]) [address] [place] [address]Cpgctjglsd (Bld) [Mass/Vol]11.3 g/dLLow12.0-15.0UnAshtabula General HospitalComment on above:Performed By: #### [id number] #### [facility] ([facility]) [address] [place] [address]Hacdndjs granulocytes (Bld) [#/Vol]0.01 10*3/uLNormal0.00-0.20 [facility] HospitalComment on above:Performed By: #### [id number] #### [facility] [address] [place] [place], [place] [address]Wngieybv granulocytes/100 WBC (Bld)0.2 %Normal0.0-1.0UnAshtabula General HospitalComment on above:Performed By: #### [id number] #### [facility] ([facility]) [address] [place] [address]Surquluxfhq (Bld) [#/Vol]1.51 10*3/uLNormal1.20-4.00UnAshtabula General HospitalComment on above:Performed By: #### [id number] #### [facility] ([facility]) [address] [place], [place] [address]Veomgmbgcqy/100 WBC (Bld)28.8 %Papehk11.0-45.0UnAshtabula General HospitalComment on above:Performed By: #### [id number] #### [facility] ([facility]) [address] [place] [place], [place] [address]XUR (RBC) [Entitic mass]29.6 bqGxcqkm14.0-33.0UnAshtabula General HospitalComment on above:Performed By: #### [id number] #### [facility] ([facility]) [address] [facility] [place], [place] [address]LTL (RBC) [Entitic vol]91.4 mYBptvti93.0-98.0UnAshtabula General HospitalComment on above:Performed By: #### [id number] #### [facility] ([facility]) [address] [facility] [place], [place] [address]Shmkhkeoa (Bld) [#/Vol]0.71 10*3/uLNormal0.10-1.00UnAshtabula General HospitalComment on above:Performed By: #### [id number] #### [facility] ([facility]) [address] [facility] [place], [place] [address]Uszfjixbk/100 WBC (Bld)13.5 %High5.0-12.0UnAshtabula General HospitalComment on above:Performed By: #### [id number] #### [facility] ([facility]) [address] [facility] [place], [place] [address]Qveepppxrlx (Bld) [#/Vol]2.82 10*3/uLNormal1.60-7.60UnAshtabula General HospitalComment on above:Performed By: #### [id number] #### [facility] ([facility]) [address] [place] [address]Nvxitdkscqy/100 WBC (Bld)53.8 %Wwiuvg30.0-72.0UnAshtabula General HospitalComment on above:Performed By: #### [id number] #### [facility] ([facility]) [address] [place] [address]BBDY (PER 100 WBCS) BY AUTOMATED COUNT0.0 %Lcxjvo4FstrdiatytAshtabula General HospitalComment on above:Performed By: #### [id number] #### [facility] ([facility]) [address] [place] [address]GZAQSDUAI (10*3/UL) IN BLOOD AUTOMATED [id number] 10*3/uLNormal 150-400UnAshtabula General HospitalComment on above:Performed By: #### [id number] #### [facility] ([facility]) [address] [place] [address]FTA (Bld) [#/Vol]3.82 10*6/uLNormal3.80-5.00UnAshtabula General HospitalComment on above:Performed By: #### [id number] #### [facility] ([facility]) [address] [place] [address]MNY (Bld) [#/Vol]5.24 10*3/uLNormal4.00-10.60UnAshtabula General HospitalComment on above:Performed By: #### [id number] #### [facility] ([facility]) [address] [place] [address]JTZYKLVws 59-62-7566JMWRVKLJxdzxorffe Consult Note Reason for Consult: NSTEMI, hypertensive [...] DVT/PE, CKD stage IV, LEE. Transfer from [facility] for management of NSTEMI. Patient [...] shortness of breath. She was taken to [facility] and was found to have high systolic blood pressure of 250. Troponin was 243-->324-->419. [place] she got 2 doses of hydralazine and [...] Pneumovax-23 [pneumococcal 23-cruz ps vaccine], Red dye, Keyclng-kkv-tqf reductase inhibitors, and Varenicline Medications Current Outpatient [...] -- -- -- -- 03/13/25 0301 (!) 224/ 36.1 ???C (97 ???F) Temporal 77 17 [...] Value Ventricular Rate 71 Atrial Rate 71 WV Interval 158 QRS DURATION 100 QT Interval 464 QTC CALCULATION(BAZETT) 504 P Mclean 10 R-Mclean 2 T Wave Mclean 160 Impression Normal (more content not included)...NormalAkron Children's Hospital CONSULTNephrology Consult Note Patient : Marleni Dennis; 74 y.o. Location: [facility]/4108- Attending: Erickson Cabrera MD Admit Date: 03/13/2025 Hospital Day: 0 Reason for Consult: CKD IV with uncontrolled hypertension. History of Present Illness: Marleni Dennis is a 74 y.o. female who was transferred from [facility] after presenting with weakness after a fall as well as uncontrolled hypertension. She has pertinent past medical history of hypertension secondary to renal artery stenosis, CKD IV, CAD s/p CABG and PCI with stent placement, obstructive sleep apnea. She presented to [place] [facility] after a fall after showering as [...] does not regularly follow up with a model maker. She says she has a water pill [...] Dose Status apixaban (Eliquis) 2.5 mg tablet 004888 TAKE 1 TABLET BY MOUTH TWICE A DAY FOR 90 DAYS Historical Provider, Active aspirin 81 mg EC tablet [id number] Take 1 tablet every day by oral route. Historical Provider, Flag for Review buPROPion (Wellbutrin) 75 mg tablet [id number] Yes Take 75 mg by mouth twice a day. Historical Provider, Active carvedilol (Coreg) 12.5 mg tablet [id number] No Take 25 mg by mouth with breakfast and with eveni (more content not included)...NormalUnAshtabula General HospitalCORTISOLon 44-34-7818SJYHWQQM (UG/DL) IN SER/PLAS8.8 ug/dLNormal6-23 [facility] HospitalComment on above:Performed By: #### [id number] ####[facility] (BEAKER)[address] [place], [place] [address]UEJB SENSITIVITY TROPONIN Ion 96-98-2819LX TROPONIN I (NG/L)215 ng/LCritically high<15UnAshtabula General HospitalComment on above:Performed By: #### [id number] #### [facility] (BEAKER) [address] [place], [place] [address]NR TROPONIN I (NG/L)223 ng/LCritically high<15UnAshtabula General HospitalComment on above:Performed By: #### [id number] ####[facility] (BEAKER)[address] [place], [place] [address]OS TROPONIN I (NG/L)228 ng/LCritically high<15UnAshtabula General HospitalComment on above: Performed By: #### [id number] #### [facility] (BEAKER) [address] [place], [place] [address]ZVIJSMTBYgc 95-92-1035Tfzvzmlrp [Mass/Vol]2.8 mg/dLHigh1.9-2.7 [facility] HospitalComment on above:Performed By: #### [id number] #### [facility] (BEAKER) [address] [place], [place] [address]Fdeigqxfa [Mass/Vol]1.2 mg/dLLow1.9-2.7UnAshtabula General HospitalComment on above:Performed By: #### [id number] #### [facility] ([facility]) [address] [place] [address]JOKTPCREnp 65-68-8461CNZAJDUNRepnvnq blood glucose is 79 mg/dl. Requesting ID band from registration. Orders noted, diet and water provided to patient. Will review BP and pain to patient's right head with on-call provider.NormalUnAshtabula General HospitalPOCT GLUCOSE METER UNSOLICITED RESULTSon 92-49-1273Yyxqaea [Mass/Vol]128 mg/dLHigh 70-105UnAshtabula General HospitalComment on above:Order Comment: Waived Testing in the ED is performed under the ED CLIA certificate #[id number].Result Comment: [id number] By: #### [id number] ####[facility] ([facility])[address] [place] [address]Ttncgam [Mass/Vol]133 mg/uJCzik84-826VcbkpbdqmkAshtabula General HospitalComment on above:Order Comment: Waived Testing in the ED is performed under the ED CLIA certificate #[id number].Result Comment: [email or web address] Performed By: #### [id number] ####[facility] ([facility])[address] [place] [address]Eqveikh [Mass/Vol]172 mg/bIKdok79-588GvpuzdwkmoAshtabula General HospitalComment on above:Order Comment: Waived Testing in the ED is performed under the ED CLIA certificate #[id number].Result Comment: [email or web address] Performed By: #### [id number] ####[facility] [place], [place] [address]Lepczct [Mass/Vol]136 mg/dIJymq64-966QotnlmgyjwAshtabula General HospitalComment on above:Order Comment: Waived Testing in the ED is performed under the ED CLIA certificate #[id number].Result Comment: [email or web address] Performed By: #### [id number] #### [facility] ([facility]) [address] [place], [place] [address]Mgtacld [Mass/Vol]81 mg/vCTlsnzr73-837RtxamrvkmhAshtabula General HospitalComment on above:Order Comment: Waived Testing in the ED is performed under the ED CLIA certificate #[id number].Result Comment: charpel2 Performed By: #### [id number] #### [facility] ([facility]) [address] [facility] [place] [address]C9, FREEon [id number] (T4) FREE (NG/DL) IN SER/PLAS1.23 ng/dLNormal0.71-1.85UnAshtabula General HospitalComment on above: Performed By: #### [id number] #### [facility] ([facility]) [address] [facility] [place], [place] [id number] REFLEX TO FT4on [id number] (MIU/L) IN SER/PLAS BY DETECTION LIMIT <= 0.05 MIU/L6.01 mIU/LHigh0.34-5.60UnAshtabula General HospitalComment on above:Performed By: #### [id number] #### [facility] ([facility]) [address] [place], [place] [address]BMO (INCLUDES DIFF/PLT)on 86-18-5900Ejsadoexg (Bld) [#/Vol]0.042 10*3/uLNormal0-200Quest DiagnosticsComment on above:Performed By: #### 7600, 76013, 6399, 40688, 899 #### [facility] [address], [address] [place] [address] Yard Foreman: Figueroa Jacques MDBasophils/100 WBC (Bld)0.8 %NormalQuest DiagnosticsComment on above:Performed By: #### 7600, 25061, 6399, 21055, 898 #### [facility] [address], [address] [place] [address] Yard Foreman: Figueroa Jacques MDEosinophils (Bld) [#/Vol]0.25 10*3/uLNormal 15-500Quest DiagnosticsComment on above:Performed By: #### 7600, 66514, 6399, 63365, 899 #### [facility] of [place] [address] Yard Foreman: Figueroa Jacques MDEosinophils/100 WBC (Bld)4.8 %NormalQuest DiagnosticsComment on above:Performed By: #### 7600, 03456, 6399, 47675, 899 #### [facility] of [address], [address] [place] [address] Yard Foreman: Figueroa Jacques MDErythrocyte distribution width (RBC) [Ratio] 14.8 %Cuotxe13.0-15.0Quest DiagnosticsComment on above:Performed By: #### 7600, 92482, 6399, 13906, 899 #### [facility] of [place] [address] Yard Foreman: Figueroa Jacques MDHematocrit (Bld) [Volume fraction]36.8 %Normal 35.0-45.0Quest DiagnosticsComment on above:Performed By: #### 7600, 39578, 6399, 75398, 899 #### [facility] of [place] [address] Yard Foreman: Figueroa Jacques MDHemoglobin (Bld) [Mass/Vol]11.9 g/dLNormal 11.7-15.5Quest DiagnosticsComment on above:Performed By: #### 7600, 10697, 6399, 08817, 899 #### [facility] of [address], [address] [place] [address] Yard Foreman: Figueroa Jacques MDLymphocytes (Bld) [#/Vol]1.737 10*3/uLNormal 850-3900Quest DiagnosticsComment on above:Performed By: #### 7600, 43740, 6399, 85120, 899 #### [facility] of [address], [address] [place], [place] [address] Yard Foreman: Figueroa Jacques MDLymphocytes/100 WBC (Bld)33.4 %NormalQuest DiagnosticsComment on above:Performed By: #### 7600, 14564, 6399, 92895, 899 #### [facility] of [address], [address] [place] [address] Yard Foreman: Figueroa Jacques MDMCH (RBC) [Entitic mass]28.7 xoYiplmn76.0-33.0 Quest DiagnosticsComment on above:Performed By: #### 7600, 08883, 6399, 17164, 899 #### [facility] of [place] [address] Yard Foreman: Figueroa CEVALLOSCHC (RBC) [Mass/Vol]32.3 g/dGZeshby72.0-36.0 Quest DiagnosticsComment on above:Result Comment: For adults, a slight decrease in the calculated MCHC value (in the range of 30 to 32 g/dL) is most likely not clinically significant; however, it should be interpreted with caution in correlation with other red cell parameters and the patient's clinical condition.Performed By: #### 7600, 88065, 6399, 23488, 899 #### [facility] [place] [address] Yard Foreman: Figueroa Jacques MDMCV (RBC) [Entitic vol]88.7 gBWwfnqm38.0-100.0 Quest DiagnosticsComment on above:Performed By: #### 7600, 96489, 6399, 02903, 899 #### [facility] of [place] [address] Yard Foreman: Figueroa Jacques MDMonocytes (Bld) [#/Vol]0.51 10*3/uLNormal 200-950Quest DiagnosticsComment on above:Performed By: #### 7600, 29350, 6399, 31689, 899 #### [facility] of [address], [address] [place] [address] Yard Foreman: Figueroa Jacques MDMonocytes/100 WBC (Bld)9.8 %NormalQuest DiagnosticsComment on above:Performed By: #### 7600, 01646, 6399, 63284, 899 #### [facility] of [address], [address] [place] [address] Yard Foreman: Figueroa Jacques MDNeutrophils (Bld) [#/Vol]2.662 10*3/uLNormal 1500-7800Quest DiagnosticsComment on above:Performed By: #### 7600, 30956, 6399, 22361, 899 #### [facility] of [address], [address] [place] [address] Yard Foreman: Figueroa Jacques MDNeutrophils/100 WBC (Bld)51.2 %NormalQuest DiagnosticsComment on above:Performed By: #### 7600, 73562, 6399, 30794, 899 #### [facility] of [address], [address] [place] [address] Yard Foreman: Figueroa Jacques MDPlatelet mean volume (Bld) [Entitic vol]10.6 fLNormal7.5-12.5Quest DiagnosticsComment on above:Performed By: #### 7600, 98578, 6399, 20226, 899 #### [facility] of [place] [address] Yard Foreman: Figueroa Jacques MDPlatelets (Bld) [#/Vol]205 10*3/uLNormal 140-400Quest DiagnosticsComment on above:Performed By: #### 7600, 27296, 6399, 28793, 899 #### [facility] of [place] [address] Yard Foreman: Figueroa Jacques MDRBC (Bld) [#/Vol]4.15 10*6/uLNormal3.80-5.10 Quest DiagnosticsComment on above:Performed By: #### 7600, 19536, 6399, 63737, 899 #### [facility] of [address], [address] [place] [address] Yard Foreman: Figueroa Jacques MDWBC (d) [#/Vol]5.2 10*3/uLNormal3.8-10.8 Quest DiagnosticsComment on above:Performed By: #### 7600, 97986, 6399, 71930, 899 #### [facility] of [address], [address] [place] [address] Yard Foreman: Figueroa Jacques [facility]PREHENSIVE METABOLIC PANELon 01-02-2025 Albumin [Mass/Vol]3.9 g/dLNormal3.6-5.1Quest DiagnosticsComment on above: Performed By: #### 7600, 54462, 6399, 22068, 899 #### [facility] of [address], [address] [place] [address] Yard Foreman: Figueroa Jacques MDAlbumin/Globulin [Mass ratio]1.5 {ratio}Normal 1.0-2.5Quest DiagnosticsComment on above:Performed By: #### 7600, 96385, 6399, 61420, 899 #### [facility] of [address], [address] [place] [address] Yard Foreman: Figueroa Jacques MDALP [Catalytic activity/Vol]45 U/JUntdxo18-225 Quest DiagnosticsComment on above:Performed By: #### 7600, 20531, 6399, 15359, 899 #### [facility] of [address], [address] [place] [address] Yard Foreman: Figueroa Jacques MDALT [Catalytic activity/Vol]4 U/LLow6-29Quest DiagnosticsComment on above:Performed By: #### 7600, 56461, 6399, 13690, 899 #### [facility] of [address], [address] [place] [address] Yard Foreman: Figueroa Jacques MDAST [Catalytic activity/Vol]14 U/RLdptqv16-92 Quest DiagnosticsComment on above:Performed By: #### 7600, 94633, 6399, 88623, 899 #### [facility] of [address], [address] [place] [address] Yard Foreman: Figueroa Jacques MDBilirubin [Mass/Vol]0.6 mg/dLNormal0.2-1.2 Quest DiagnosticsComment on above:Performed By: #### 7600, 21653, 6399, 09420, 899 #### [facility] of [address], [address] [place] [address] Yard Foreman: Figueroa Jacques MDCalcium [Mass/Vol]9.2 mg/dLNormal8.6-10.4Quest DiagnosticsComment on above:Performed By: #### 7600, 67698, 6399, 94460, 899 #### [facility] of [address], [address] [place] [address] Yard Foreman: Figueroa Jacques MDChloride [Moles/Vol]108 mmol/VArfefp28-091 Quest DiagnosticsComment on above:Performed By: #### 7600, 76783, 6399, 49934, 899 #### [facility] of [place] [address] Yard Foreman: Figueroa Jacques MDCO2 [Moles/Vol]24 mmol/RCvjmis43-81Ijodx DiagnosticsComment on above:Performed By: #### 7600, 72289, 6399, 87333, 899 #### [facility] of [address], [address] [place] [address] Yard Foreman: Figueroa Jacques MDCreatinine [Mass/Vol]2.01 mg/dLHigh0.60-1.00 Quest DiagnosticsComment on above:Performed By: #### 7600, 15975, 6399, 14610, 899 #### [facility] of [address], [address] [place] [address] Yard Foreman: Figueroa Jacques MDGFR/1.73 sq M.predicted among non-blacks MDRD (S/P/Bld) [Vol rate/Area]25 mL/min/{1.73_m2}Low> OR = 60Quest DiagnosticsComment on above:Performed By: #### 7600, 13728, 6399, 23912, 899 #### [facility] [address], [address] [place] [address] Yard Foreman: Figueroa Jacques MDGlobulin (S) [Mass/Vol]2.6 g/dLNormal1.9-3.7 Quest DiagnosticsComment on above:Performed By: #### 7600, 04508, 63, 65841, 899 #### [facility] [address], [address] [place] [address] Yard Foreman: Figueroa Jacques MDGlucose [Mass/Vol]103 mg/nKHhpp21-44Pxcyt DiagnosticsComment on above:Result Comment: Fasting reference interval For someone without known diabetes, a glucose value between 100 and 125 mg/dL is consistent with prediabetes and should be confirmed with a follow-up test.Performed By: #### 7600, 02312, 63, 38277, 899 #### [facility] [address], [address] [place] [address] Yard Foreman: Figueroa Jacques MDPotassium [Moles/Vol]4.4 mmol/LNormal3.5-5.3 Quest DiagnosticsComment on above:Performed By: #### 7600, 61216, 6399, 41065, 899 #### [facility] [place] [address] Yard Foreman: Figueroa Jacques MDProtein [Mass/Vol]6.5 g/dLNormal6.1-8.1Quest DiagnosticsComment on above:Performed By: #### 7600, 07194, 6399, 45649, 899 #### [facility] [address], [address] [place] [address] Yard Foreman: Figueroa Jacques MDSodium [Moles/Vol]141 mmol/GWmmnnb110-629Jncig DiagnosticsComment on above:Performed By: #### 7600, 47636, 6399, 64386, 899 #### [facility] [address], [address] [place] [address] Yard Foreman: Figueroa Jacques MDUrea nitrogen [Mass/Vol]27 mg/dLHigh7-25Quest DiagnosticsComment on above:Performed By: #### 7600, 80442, 6399, 22075, 899 #### [facility] [address], [address] [place] [address] Yard Foreman: Figueroa Jacques MDUrea nitrogen/Creatinine [Mass ratio]13 mg/mg Normal6-22Quest DiagnosticsComment on above:Performed By: #### 7600, 84414, 6399, 15849, 899 #### [facility] [address], [address] [place] [address] Yard Foreman: Figueroa Jacques MDLIPID PANEL, STANDARD 19-51-4797Rraqvozyhar [Mass/Vol]138 mg/dLNormal<200Quest DiagnosticsComment on above:Order Comment: FASTING:YES FASTING: YESPerformed By: #### 7600, 58427, 6399, 13774, 899 #### [facility] [place] [address] Yard Foreman: Figueroa Jacques MDCholesterol in HDL [Mass/Vol]37 mg/dLLow> OR = 50Quest DiagnosticsComment on above:Order Comment: FASTING:YES FASTING: YESPerformed By: #### 7600, 22609, 6399, 27214, 899 #### [facility] [place] [address] Yard Foreman: Figueroa Jacques MDCholesterol in LDL [Mass/Vol]76 mg/dLNormal [...] LDL-C. Andres MOODY et al. NICOLE. 2013;310(19): 7948-6179 (http://education.Feastie.Sanovation/faq/CYN238)Performed By: #### 7600, 39106, 6399, 05195, 899 #### [facility] [address], [address] [place] [address] Yard Foreman: Figueroa Mcleansteronataliia.total/Cholesterol in HDL [Mass ratio]3.7 {ratio}Normal<5.0Quest DiagnosticsComment on above:Order Comment: FASTING:YES FASTING: YESPerformed By: #### 7600, 43049, 6399, 08129, 899 #### [facility] [address], [address] [place] [address] Yard Foreman: Figueroa SILVA HDL IWOWPLGIKDN892 mg/dL (calc)Normal<130 Quest DiagnosticsComment on above:Order Comment: FASTING:YES FASTING: YESResult Comment: For patients with diabetes plus 1 major ASCVD risk factor, treating to a non-HDL-C goal of <100 mg/dL (LDL-C of <70 mg/dL) is considered a therapeutic option.Performed By: #### 7600, 18863, 6399, 17302, 899 #### [facility] [address], [address] [place] [address] Yard Foreman: Figueroa Jacques MDTriglyceride [Mass/Vol]153 mg/dLHigh<150Quest DiagnosticsComment on above:Order Comment: FASTING:YES FASTING: YESPerformed By: #### 7600, 75094, 6399, 97584, 899 #### [facility] [address], [address] [place] [address] Yard Foreman: Figueroa Jacques MD, FREEon 04-48-7939Vekv T3 [Mass/Vol]2.7 pg/mLNormal2.3-4.2Quest DiagnosticsComment on above:Performed By: #### 3020, 15617, %SBCULI, 6399 #### [facility] [address], [address] [place] [address] Yard Foreman: Figueroa Jacques MDT4, FREEon 73-57-4327Ylrc T4 [Mass/Vol]1.2 ng/dLNormal0.8-1.8Quest DiagnosticsComment on above:Performed By: #### 7600, 15294, 6399, 33430, 899 #### [facility] [address], [address] [place] [address] Yard Foreman: Figueroa M[facility]ONorthbay [facility] 78-61-0793XRD Qn3.82 m[IU]/LNormal 0.40-4.50Quest DiagnosticsComment on above:Performed By: #### 3020, 05832, %SBCULI, 6399 #### [facility] [address], [address] [place] [address] Yard Foreman: Figueroa Jacques MDLaboratory - Hematology and Cell countson 31-48-4255MgE9y (Bld) [Mass fraction]5 %NOMS HealthcareNo Panel Informationon 88-26-9890JKKZ HealthcareAmbulatory Visit Summaryon 78-25-0244Cfwbgljkdw Visit SummaryAmbulatory Visit Summary MARLENI DENNIS :1950 [...] mg Tab) nitroglycerin (nitroglycerin 0.4 mg SubL Leeper) pantoprazole (Pantoprazole [address] Tab) pregabalin [...] Alfredo CARDENAS MD Where: [facility] [place] [address] [place] [address]- You Need to Schedule the Following Appointments Follow Up with Alfredo CARDENAS MD, URL When: Where: [facility] [address] , [place] [address] [phone] Medications What How Much When Instructions New mirabegron (mirabegron 50 mg oral tablet, extended release) 1 Tablets By Mouth Every day Refills: 11 Pickup at [facility]/pharmacy #[id number] Unchanged apixaban (Eliquis 2.5 mg oral tablet) [...] concerns Unchanged nitroglycerin (nitroglycerin 0.4 mg SubL Leeper) Sublingual Every 5 minutes Contact prescribing physician [...] physician if questions or concerns Pharmacy Information [facility]/pharmacy #[id number]: [address], [place] [id number] [phone] What How Much When Comments Stop Taking oxybutynin (oxybutynin 10 mg ER Tab) 1 Tablets By Mouth Every day Allergies iodine (Rash) shellfish (Unknown) statins (Unknown) Problems Ongoing - Any problem that you are currently receiving treatment for. 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 Kidney lesion Osteoporosis Urge incontinence Historical - Any problem that you are no longer receiving treatment for. Heart disease Hyperlipidem (more content not included)...[facility] Reminderson 22-36-8307PpjzvspknWtxaxtxyc From: Pati Akins To: DARREL - Tayler Cardenas; Sent: 11/18/2024 14:29:07 EST Show up: 09/18/2025 14:28:00 EST Subject: MRI of ABD Due Date/Time: 10/13/2025 14:28:00 EST Reminder/Recall Patient is due for ABD MRI w contrast prior to November 2025 appt/ [facility]-07-1093Qvdmffa Office/Clinic NoteUrology Office/Clinic Note Chief Complaint 6 [...] qd. Possible SEs discussed. Rx sent to [facility] [place]. -Cont double void maneuvers 3. 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 (Z79.01: senior living (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) On Eliquis. Elevated risk for periop complications in the future. Follow-up With When Contact Information RONALD BEAULIEU, Alfredo Moya, URL [facility] [address], [place] [phone] Additional Instructions: 1 yr w/ MRI Patient Education Kegel Brenda I, Mayte Vogt, personally scribed for Dr. [...] on back, Tonsillectomy. Medication (more content not included)...[facility] Comment on above:Result Comment: Electronically Signed By: Alfredo CARDENAS MD\.br\Date and Time Signed: 11/18/24 14:26 EST\.br\Electronically Co-Signed By: Mayte Vogt\.br\Date and Time Co-Signed: 11/18/24 14:24 ESTReminderson 66-43-9302QraqpnhqlBowwaxzqj From: MIGUEL Thomson APRN, [facility] To: DARREL Cardenas; Sent: 03/19/2024 15:06:49 EDT Show up: 08/18/2024 15:06:00 EST Subject: Reminder Message Reminder Message MRI abdomen with and without IV contrast for kidney lesion surveillance. Follow- up appointment scheduled September Order for MRI and accompanying paperwork faxed to [facility] Central scheduling today. They will call pt to schedule. Pt is scheduled today at 2pm for MRI and creatinine draw. Will monitor Results in chart for review Results in chart for reviewOhioHealth Pickerington Methodist HospitalMR Abdomen WO and W contrast Sylvia 59-86-[address] [address] Magnetic Resonance Report Signed Patient: MARLENI DENNIS MR#: [id number] : 1950 Acct:[id number] Age/Sex: 73 / F ADM Date: 09/13/24 Loc: LAB Attending Dr: Alfredo Cardenas M.D. Ordering Physician: Alfredo Cardenas M.D. Date of Service: 09/13/24 Procedure(s): MR abdomen wo/w con Accession Number(s): [id number] cc: JACK VOGT ; Alfredo Cardenas M.D. The [address] [address] Patient Name: MARLENI DENNIS MRN: [id number] date: 1950 Sex: F Assigned Patient Location: LAB Current Patient Location: LAB Accession/Order Number: [id number] Exam Date: 09/13/2024 13:35 Report Date: 09/20/2024 [...] M.D. Signed By: 09/20/245 DD/ 12 TD/TT: Glass Mold Repairer:TBHRadiology, Radiologist, - 09/20/2024 The [place] [id number] Magnetic Resonance Report Signed Patient: MARLENI DENNIS MR#: [id number] : 1950 Acct:[id number] Age/Sex: 73 / F ADM Date: 09/13/24 Loc: LAB Attending Dr: Alfredo Cardenas M.D. Ordering Physician: Alfredo Cardenas M.D. Date of Service: 09/13/24 Procedure(s): MR abdomen wo/w con Accession Number(s): [id number] cc: JACK VOGT ; Alfredo Cardenas M.D. [address] [address] Patient Name: MARLENI DENNIS MRN: [facility]:[id number] date: 1950 Sex: F Assigned Patient Location: LAB Current Patient Location: LAB Accession/Order Number: [id number] Exam Date: 09/13/2024 13:35 Report Date: 09/20/2024 [...] M.D. Signed By: 09/20/241714 DD/ 12 TD/TT: Glass Mold Repairer: MARYSOL [facility] HospitalRadiology Study observation (narrative)[facility] Abdomen WO and W contrast IVOrdered By: Radiologist Radiology on 07-28-6576IYFOSelect Specialty Hospital Work Phone: TB CREATININEon 35-32-4719Evvplslgat [Mass/Vol]1.56 mg/dLHigh0.55 - 1.02 mg/dLNOSac-Osage HospitalGFR/1.73 sq M.predicted CKD-EPI (S/P/Bld) [Vol rate/Area]39Low>=60 mL/min/1.73m 2NOMS HealthcareInterpretation and review of laboratory resultsAbnormalNOMid [facility] EGFR-NON AF ZAMBIAN 32Low>=60 mL/min/1.73m 2NOMS HealthcareCLINISYNCNOMS Zwxwreoufg58au Regarding echo result from 05/10/2024: MD Kari Catsellano MA Echo was ok, follow up in 1 year. [facility] informed.[facility] HospitalOffice Visiton 24-16-7235Jkqnwv-up [id number] Marleni Dennis 1950 F Date Provider Department Center 04/24/2024 SACHIN KEITH [place] [facility] Family History Problem Relation Age of Onset Coronary artery disease Mother Stroke Mother Coronary artery disease Father Ovarian cancer Sister Family Status - Relation Status Age at Mother Father Sister Level of Service:[address] [place] OFFICE/OUTPATIENT ESTABLISHED MOD MDM 30 [facility]on 03-19-2024 Urology Office/Clinic NoteUrology [...] with voice recognition artificial intelligence software, specifically Plated, Cynny and or StowThat. Substitutions may have occurred due to the [...] 0 -Continue oxybutynin, call for refills Ordered: 94749 Measure Post Void residual urine and/or bladder [...] monitoring 3. 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 (Z79.01: long term care pharmacist (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) On Eliquis Follow-up With When Contact Information RONALD BEAULIEU, Alfredo Moya, URL [facility] [address], [place] [phone] Additional Instructions: 6 mos w/ MRI Patient [...] tablet, extended release nitroglycerin 0.4 mg SubL Leeper, SubLingual, q5min oxybutynin 10 mg ER Tab, [...] virus vaccine, inactivated 07/04/2022 Recorded SARS-CoV-2 (COVID-19) mRNAMUL.[id number] 07/04/2022 Recorded influenza virus vaccine, inactivated 06/24/2021 Recorded SARS-CoV-2 (COVID-19) mRNA BNT-162b2 vax 06/24/2021 Recorded 2022-09-26: TPV70 SARS-CoV-2 (COVID-19) mRNA BNT-162b2 vax 11/17/2020 Recorded 2022-09-26: TPV70 SARS-CoV-2 (COVID-19) mRNA BNT-162b2 vax 10/27/2020 Recorded 2022-09-26: TPV70 influenza virus vaccine, inactivated 07/08/2020 Recorded [1] URO- review MRI, start Oxybutynin; RONALD BEAULIEU (more content not included)... [facility] HospitalComment on above:Result Comment: Electronically Signed By: MIGUEL Thomson APRN, [facility]\.br\Date and Time Signed: 03/19/24 15:09 EDTUS LEG LEFT VENOUS + DOPPLERon 20-39-0222[place]xfSp[place] [address] Ultrasound Report Signed Patient: MARLENI DENNIS MR#: [id number] : 1950 Acct:[id number] Age/Sex: 72 / F ADM Date: 10/18/23 Loc: US Attending Dr: SACHIN AGUILERA Ordering Physician: SACHIN AGUILERA Date of Service: 10/18/23 Procedure(s): US venous doppler MOOK ROY Accession Number(s): [id number] cc: JACK VOGT ; SACHIN AGUILERA The [place] [id number] Patient Name: MARLENI DENNIS MRN: [id number] date: 1950 Sex: F Assigned Patient Location: US Current Patient Location: US Accession/Order Number: [id number] Exam Date: 10/18/2023 15:08 Report Date: 10/18/2023 [...] Wall M.D. Signed By: 10/18/23 1635 DD/ 163 TD/TT: Glass Mold Repairer:TBHRadiology, Radiologist, MD - 10/18/2023 [place] [address] Ultrasound Report Signed Patient: MARLENI DENNIS MR#: [id number] : 1950 Acct:[id number] Age/Sex: 72 / F ADM Date: 10/18/23 Loc: US Attending Dr: SACHIN AGUILERA Ordering Physician: SACHIN AGUILERA Date of Service: 10/18/23 Procedure(s): US venous doppler LE BI Accession Number(s): [id number] cc: JACK VOGT ; SACHIN AGUILERA [place] [address] Patient Name: MARLENI DENNIS MRN: [facility]:[id number] date: 1950 Sex: F Assigned Patient Location: US Current Patient Location: US Accession/Order Number: [id number] Exam Date: 10/18/2023 15:08 Report Date: 10/18/2023 [...] By: Henry Wall M.D. Signed By: 10/18/23 163 DD/ 1632 TD/TT: Glass Mold Repairer: NOMBryanna HealthcareRadiology Study observation (narrative)NOMS HealthcareUS LEG LEFT VENOUS + DOPPLEROrdered By: Radiologist Radiology on 60-20-9104NH[facility] Work Phone: cbc AUTO DIFFon 76-00-6491JOJD #0.1 103/ulNormal 0.0-0.1The [facility] HospitalComment on above:Performed By: #### CBC #### [facility] [address] [place] [address] [address] Aryan Maguirephils/100 WBC (Bld)1.4 %Normal0.2-2.0The [facility] Comment on above:Performed By: #### CBC #### [facility] [address] [place] [address] Dr. Aryan Loza #0.6 103/ulNormal0.0-0.7The [facility] HospitalComment on above: Performed By: #### CBC #### [facility] [address] [place] [address] Dr. Aryan Bensonosinophils/100 WBC (Bld)7.7 %Critically high0.9-7.0The [facility] HospitalComment on above:Performed By: #### CBC #### [facility] [address] [place] [address] Dr. Aryan Bensonrythrocyte distribution width (RBC) [Ratio]16.4 %Critically high 11.0-15.0The [facility] on above:Performed By: #### CBC #### [facility] [address] [place] [address] Dr. Aryan PettyHematocrit (Bld) [Volume fraction]40.6 %Cgyteq39.0-48.0The [facility] HospitalComment on above:Performed By: #### CBC #### [facility] [address] [place] [address] Dr. Aryan PettyHemoglobin (Bld) [Mass/Vol]12.9 g/fDOvdimc86.0-16.0The [facility] HospitalComment on above:Performed By: #### CBC #### [facility] [address] [place] [address] Dr. Aryan Ferrell #0.03 10e3/ulNormal0.00-0.03The [facility] HospitalComforest [facility] medical center on above:Performed By: #### CBC #### [facility] [address] [place] [address] Dr. Aryan Ferrell %0.4 %Normal0.0-0.5The [facility] HospitalComforest health medical center on above: Performed By: #### CBC #### [facility] [address] [place] [address] Dr. Aryan AltamiranoH #2.6 103/ulNormal1.2-3.8The [facility] HospitalComment on above:Performed By: #### CBC #### [facility] [address] [place] [address] Dr. Aryan Nogueramphocytes/100 WBC (Bld)35.5 %Yopsgc65.5-60.0The [facility] HospitalComment on above:Performed By: #### CBC #### [facility] [address] [place] [address] Dr. Aryan RussellUAL DIFF REQNONormalThe Joint Township District Memorial HospitalComment on above: Performed By: #### CBC #### [facility] [address] [place] [address] Dr. Aryan Booker (RBC) [Entitic mass]26.5 pgCritically low26.7-34.0The [facility] HospitalComment on above:Performed By: #### CBC #### [facility] [address] [place] [address] Dr. Aryan Booker (RBC) [Mass/Vol]31.8 g/cWAutttu99.9-35.2The [facility] HospitalComment on above:Performed By: #### CBC #### [facility] [address] [place] [address] Dr. Aryan Booker (RBC) [Entitic vol]83.5 hEMnclqr54.0-99.0The [facility] HospitalComment on above:Performed By: #### CBC #### [facility] [address] [place] [address] Dr. Aryan Sharma #0.7 103/ulNormal0.3-0.8The [facility] HospitalComment on above:Performed By: #### CBC #### [facility] [address] [place] [address] Dr. Aryan Fairchildocytes/100 WBC (Bld)9.9 %Normal1.7-12.0The [facility] Comment on above:Performed By: #### CBC #### [facility] [address] [place] [address] Dr. Aryan Tijerina #3.3 103/ulNormal1.4-6.5The [facility] HospitalComment on above:Performed By: #### CBC #### [facility] [address] [address] [address] Aryan Gutierrezutrophils/100 WBC (Bld)45.1 %Wjstde21.0-75.0[facility] on above:Performed By: #### CBC #### [facility] [address] [address] [address] Aryan PettyPlatelet mean volume (Bld) [Entitic vol]11.0 fLNormal9.5-13.5The [facility] HospitalComment on above:Performed By: #### CBC #### [facility] [address] [place] [address] Dr. Aryan PettyPLT270 103/cmEccype079-055Twm [facility] on above: Performed By: #### CBC #### [facility] [address] [place] [address] Dr. Aryan PettyRBC4.86 106/ulNormal4.20-5.40The [facility] HospitalComment on above:Performed By: #### CBC #### [facility] [address] [place] [address] Dr. Aryan PettyWBC7.4 103/ulNormal4.0-11.0[facility] on above: Performed By: #### CBC #### [facility] [address] [place] [address] Dr. Aryan PettyLIPID PROFILEon 55-14-5832SHDX-HDL RATIO NORMSHolzer Health SystemComment on above:Result Comment: 3.3 - 4.4 LOW RISK 4.4 - 7.1 AVERAGE RISK 7.1 - 11.0 MODERATE RISK >11.0 HIGH RISKPerformed By: #### CMP, LIPID #### [facility] [address] [place] [address] Dr. Aryan PettyCholesterol [Mass/Vol]189 mg/dLNormal<=200[facility] Comment on above:Performed By: #### CMP, LIPID #### [facility] [address] [address] [address] Aryan PettyCholesterol in HDL [Mass/Vol]30 mg/dLCritically jdw27-22Btg [facility] on above:Performed By: #### CMP, LIPID #### [facility] [address] [place] [address] Dr. Aryan PettyCholesterol in LDL [Mass/Vol]101.6 mg/dLOhioHealth Pickerington Methodist HospitalComforest health medical center on above:Performed By: #### CMP, LIPID #### [facility] [address] [place] [address] Dr. Aryan Alexandraestermao.total/Cholesterol in HDL [Mass ratio]6.3 {ratio} NormalThe [facility] on above:Performed By: #### CMP, LIPID #### [facility] [address] [place] [address] Dr. Aryan Armendariz NORMAL> or = 60 mg/dl - LOW CARDIOVASCULAR RISK <40 mg/dl - HIGH CARDIOVASCULAR RISKNoOhioHealth Riverside Methodist HospitalComforest health medical center on above:Performed By: #### CMP, LIPID #### [facility] [address] [place] [address] Dr. Aryan Polo CALC NORMALSEE BELOWOhioHealth Pickerington Methodist HospitalComforest health medical center on above:Result Comment: <100 mg/dl OPTIMAL 100 - 129 mg/dl NEAR OR ABOVE OPTIMAL 130 - 159 mg/dl BORDERLINE HIGH 160 - 189 mg/dl HIGH >190 mg/dl VERY HIGH Performed By: #### CMP, LIPID #### [facility] [address] [place] [address] Dr. Aryan PettyTriglyceride [Mass/Vol]287 mg/dLCritically high<=150The [facility] HospitalComforest health medical center on above:Performed By: #### CMP, LIPID #### [facility] [address] [place] [address] Dr. Aryan PettyVLDL CALC57.4 mg/dLOhioHealth Pickerington Methodist HospitalComment on above: Performed By: #### CMP, LIPID #### [facility] [address] [place] [address] Dr. Aryan PettyPROF 14(COMP METB)on 43-94-1351Hsatkyi [Mass/Vol]3.6 g/dLNormal 3.4-5.0The [facility] HospitalComment on above:Performed By: #### CMP, LIPID #### [facility] [address] [place] [address] Dr. Aryan PettyAlbumin/Globulin [Mass ratio]0.8 {ratio}NormalThe [facility] HospitalComment on above:Performed By: #### CMP, LIPID #### [facility] [address] [address] [address] Aryan Ortiz [Catalytic activity/Vol]86 U/GJgadmk79-248Rmt [facility] HospitalComment on above:Performed By: #### CMP, LIPID #### [facility] [address] [place] [address] Dr. Aryan cAharya [Catalytic activity/Vol]21 U/FCwyvdx57-97Iuu [facility] HospitalComment on above:Performed By: #### CMP, LIPID #### [facility] [address] [place] [address] Dr. Aryan Reece gap [Moles/Vol]13.1 mmol/LNormalThe [facility] Comment on above:Performed By: #### CMP, LIPID #### [facility] [address] [place] [address] Dr. Aryan Prakash [Catalytic activity/Vol]27 U/MXpspli11-73Mdm [facility] HospitalComment on above:Performed By: #### CMP, LIPID #### [facility] [address] [address] [address] Aryan PettyBilirubin [Mass/Vol]0.4 mg/dLNormal0.2-1.0The [facility] Comment on above:Performed By: #### CMP, LIPID #### [facility] [address] [place] [address] Dr. Aryan PettyCalcium [Mass/Vol]9.4 mg/dLNormal8.5-10.1[facility] Comment on above:Performed By: #### CMP, LIPID #### [facility] [address] [address] [address] Aryan PettyChloride [Moles/Vol]103 mmol/EIjntix22-536Ysx [facility] Comment on above:Performed By: #### CMP, LIPID #### [facility] [address] [place] [address] Dr. Aryan PettyCO2 [Moles/Vol]27.6 mmol/JThbyvc38.0-32.0The [facility] Comment on above:Performed By: #### CMP, LIPID #### [facility] [address] [place] [address] Dr. Aryan PettyCreatinine [Mass/Vol]2.21 mg/dLCritically high0.55-1.02The [facility] HospitalComment on above:Performed By: #### CMP, LIPID #### [facility] [address] [place] [address] Dr. Baeza ChangEGFR-AF IMJSTFEI63 mL/min/1.39f3Nskrqideci low>=60The [facility] HospitalComment on above:Performed By: #### CMP, LIPID #### [facility] [address] [place] [address] Dr. Aryan BensonGFR-NON AF IPBFJVLQ40 mL/min/1.24g6Sedsamrmkd low>=60The [facility] HospitalComment on above:Performed By: #### CMP, LIPID #### [facility] [address] [place] [address] Dr. Aryan PettyGlobulin (S) [Mass/Vol]4.6 g/dLNormalThe [facility] HospitalComment on above:Performed By: #### CMP, LIPID #### [facility] [address] [place] [address] Dr. Aryan PettyGlucose [Mass/Vol]120 mg/dLCritically rwgy19-754Uhg [facility] HospitalComment on above:Performed By: #### CMP, LIPID #### [facility] [address] [place] [address] Dr. Aryan PettyPotassium [Moles/Vol]4.0 mmol/LNormal3.5-5.1The [facility] Comment on above:Performed By: #### CMP, LIPID #### [facility] [address] [place], [place] [address] Dr. Aryan PettyProtein [Mass/Vol]8.2 g/dLNormal6.4-8.2[facility] Comment on above:Performed By: #### CMP, LIPID #### [facility] [address] [place], [place] [address] Dr. Aryan PettySodium [Moles/Vol]140 mmol/SRdygsj742-828Jic [facility] Comment on above:Performed By: #### CMP, LIPID #### [facility] [address] [address] [address] Aryan PettyUrea nitrogen [Mass/Vol]29.0 mg/dLCritically high7.0-18.0The [facility] HospitalComment on above:Performed By: #### CMP, LIPID #### [facility] [address] [address] [address] Aryan PettyUrea nitrogen/Creatinine [Mass ratio]13.1 mg/mgNormalThe [facility] HospitalComment on above:Performed By: #### CMP, LIPID #### [facility] [address] [address] [address] Aryan [place] CAROTID ART BILon [id number] CAROTID ART BILEXAMINATION: US CAROTID ART TEJ [...] Electronically authenticated by: TONYA GARCIA Date: 2023-01-10 15:26[facility] DEXA BONE DENSITYon [id number] DEXA BONE DENSITY EXAMINATION: XR DEXA BONE [...] Electronically authenticated by: TONYA GARCIA Date: 2022-09-07 16:41[facility] HospitalMRI ABDOMEN WO W CONon [id number] ABDOMEN WO W CONEXAM: MRI ABDOMEN WO [...] Electronically authenticated by: RYLAN HOPKINS Date: 2022-09-01 12:43[facility] HospitalCREATININEon 28-21-3576Dbrccwkwsu [Mass/Vol]2.23 mg/dL Critically high0.55-1.02[facility] HospitalComment on above:Performed By: #### CREA ####[facility] [address] [place], [place] [address]Mq. Yilan ChangEGFR-AF SGEZGUCO69 mL/min/1.67x9Jpufxgzyyi low>=60The [facility] HospitalComment on above:Performed By: #### CREA ####[facility] [address] [place], [place] [address]Xv. Yilan ChangEGFR-NON AF PVHDGIHU26 mL/min/1.55y9Twxqmtxeyh low>=60The [facility] HospitalComment on above: Performed By: #### CREA ####[facility] [address] [place], [place] [address]Gd. Yilan ChangECHOCARDIO M/2D COMPLETEon 03-16-2022 ECHOCARDIO M/2D COMPLETEPatient: MARLENI DENNIS Exam Date: 03/16/2022 : 1950 Gender:F Ordering : JOHN LUTHER Admission #: [id number] Family : DR JACK VOGT M.D. Order #: [id number] CLICK HERE TO VIEW EXAM ECHOCARDIOGRAM REPORT [...] by: Sachin Aguilera M.D. on 03/16/2022 at 16:36[facility] HospitalBNPon 64-63-6339Gwxodogutaw peptide B (Bld) [Mass/Vol]553.0 pg/mLNormal <=900.0The [facility] HospitalComment on above:Performed By: #### BNP, BMP ####[facility] [address] [address]Dr. Yilan ChangPROF CHEM 8 (BAS METB)on 09-97-3526Vdcwx gap [Moles/Vol]14.9 mmol/L NormalThe [facility] HospitalComment on above:Performed By: #### BNP, BMP ####[facility] [address] [address]Dr. Yilan ChangCalcium [Mass/Vol]9.1 mg/dLNormal8.5-10.1The [facility] HospitalComment on above:Performed By: #### BNP, BMP ####[facility] [address] [address]Dr. Yilan ChangChloride [Moles/Vol]102 mmol/L Qysktf26-063Uoa [facility] HospitalComment on above:Performed By: #### BNP, BMP ####[facility] [address] [address]Dr. Yilan ChangCO2 [Moles/Vol]27.7 mmol/UIxanvc89.0-32.0The [facility] HospitalComment on above:Performed By: #### BNP, BMP ####[facility] [address] [address]Dr. Yilan ChangCreatinine [Mass/Vol]1.80 mg/dL Critically high0.55-1.02The [facility] on above:Performed By: #### BNP, BMP ####[facility] [address] [address]Dr. Yilan ChangEGFR-AF KZBPTFGR96 mL/min/1.78g8Fdazgmrlxo low>=60The [facility] HospitalComforest health medical center on above:Performed By: #### BNP, BMP ####[facility] [address] [place], [place] [address]Dr. Yilan ChangEGFR- NON AF VJACRPBR00 mL/min/1.81m2Jvvlwibifj low>=60The [facility] on above:Performed By: #### BNP, BMP ####[facility] [address] [place], [place] [address]Dr. Yilan ChangGlucose [Mass/Vol]107 mg/dL Critically nyet01-585Jzj [facility] HospitalComforest health medical center on above:Performed By: #### BNP, BMP ####[facility] [address] [place], [place] [address]Dr. Yilan ChangPotassium [Moles/Vol]3.6 mmol/LNormal3.5-5.1The [facility] on above:Performed By: #### BNP, BMP ####[facility] [address] [place], [place] [address]Dr. Yilan ChangSodium [Moles/Vol]141 mmol/IXvvpjs536-669Jdt [facility] on above: Performed By: #### BNP, BMP ####[facility] [address] [place], [place] [address]Dr. Yilan ChangUrea nitrogen [Mass/Vol]33.0 mg/dL Critically high7.0-18.0The [facility] on above:Performed By: #### BNP, BMP ####[facility] [address] [place], [place] [address]Dr. Yilan ChangUrea nitrogen/Creatinine [Mass ratio]18.3 mg/mgNormalThe Neva HospitalComment on above:Performed By: #### BNP, BMP ####[facility] [address] [place], [place] [address] [place] KIDNEYSon 91-87-0954TQ KIDNEYSEXAMINATION: US KIDNEYS HISTORY: Kidney lesion COMPARISON: [...] Electronically authenticated by: HENRY WALL Date: 2022-02-22 17:17[facility] HospitalVC VENOUS REFLUX TEJ LMTon 52-69-0613NE VENOUS REFLUX TEJ LMT Patient: MARLENI DENNIS Exam Date: 02/16/2022 : 1950 Gender:F Ordering : JOHN LUTHER Admission #: [id number] Family : Order #: [id number] CLICK HERE TO VIEW EXAM RADIOLOGY REPORT [...] proximal SSV. Flow: Mild deep venous reflux. Fitness Leader: Dist/med calf 3.3 mm with 0.3s reflux. [...] Normal. Flow: Mild deep venous reflux noted. Fitness Leader: Mid/medial calf 3.1mm, 2.9s. Dist/med calf 3.1mm, [...] by: Henry Wall MD on 02/16/2022 at 11:49[facility] CAROTID ART BILon [id number] CAROTID ART BILEXAMINATION: US CAROTID ART TEJ [...] Electronically authenticated by: TONYA GARCIA Date: 2022-02-04 17:45[facility] WALTER DOP LEG BILon 67-66-7847IY WALTER DOP LEG BILEXAM: WALTER DOP LEG TEJ HISTORY: Pain in [...] Electronically authenticated by: JERRICA HOLDEN Date: 2022-02-04 16:34NoOhioHealth Riverside Methodist HospitalBNPon [id number] peptide B (Bld) [Mass/Vol]620.0 pg/mLNormal<=900.0The [facility] HospitalComment on above:Performed By: #### BNP, BMP, LIPID ####[facility] [address] [address]Dr. Aryan PettyLIPID PROFILEon 15-68-7737NMTP-HDL RATIO NORMSEE BELOWNormal The [facility] HospitalComment on above:Result Comment: 3.3 - 4.4 LOW RISK 4.4 - 7.1 AVERAGE RISK 7.1 - 11.0 MODERATE RISK >11.0 HIGH RISKPerformed By: #### BNP, BMP, LIPID ####[facility] [address] [address]Dr. Aryan ChangCholesterol [Mass/Vol]148 mg/dLNormal<=200The [facility] HospitalComment on above:Performed By: #### BNP, BMP, LIPID ####[facility] [address] [address]Dr. Aryan Petty Cholesterol in HDL [Mass/Vol]25 mg/dLCritically lnm21-45Zqz [facility] Comment on above:Performed By: #### BNP, BMP, LIPID ####[facility] [address] [place], [place] [address]Ii. Aryan PettyCholesterol in LDL [Mass/Vol]80.8 mg/dLNormOur Lady of Mercy Hospital - AndersonComment on above:Performed By: #### BNP, BMP, LIPID ####[facility] [address] [address]Dr. Aryan ChangCholesterol.total/Cholesterol in HDL [Mass ratio]5.9 {ratio}NormalThe [facility] HospitalComment on above:Performed By: #### BNP, BMP, LIPID ####[facility] [address] [address]Dr. Aryan ChangHDL NORMAL> or = 60 mg/dl - LOW CARDIOVASCULAR RISK <40 mg/dl - HIGH CARDIOVASCULAR RISKOhioHealth Pickerington Methodist HospitalComment on above:Performed By: #### BNP, BMP, LIPID ####[facility] [address] [place], [place] [address]Dr. Yilan ChangLDL CALC NORMALSEE BELOWNoOhioHealth Riverside Methodist HospitalComment on above:Result Comment: <100 mg/dl OPTIMAL 100 - 129 mg/dl NEAR OR ABOVE OPTIMAL 130 - 159 mg/dl BORDERLINE HIGH 160 - 189 mg/dl HIGH >190 mg/dl VERY HIGHPerformed By: #### BNP, BMP, LIPID ####[facility] [address] [place], [place] [address]Dr. Yilan ChangTriglyceride [Mass/Vol]211 mg/dLCritically high<=150The [facility] HospitalComment on above:Performed By: #### BNP, BMP, LIPID ####[facility] [address] [place], [place] [address]Dr. Suzannelan ChangVLDL CALC42.2 mg/dLNoOhioHealth Riverside Methodist HospitalComment on above: Performed By: #### BNP, BMP, LIPID ####[facility] [address] [place], [place] [address]Dr. Suzannelan ChangPROF CHEM 8 (BAS METB)on 03-80-1435Huukp gap [Moles/Vol]14.7 mmol/LNormalCleveland Clinic Lutheran HospitalComment on above:Performed By: #### BNP, BMP, LIPID ####[facility] [address] [place], [place] [address]Dr. Aryan ChangCalcium [Mass/Vol]8.7 mg/dL Normal8.5-10.1The [facility] HospitalComment on above:Performed By: #### BNP, BMP, LIPID ####[facility] [address] [place], [place] [address]Dr. Yilan ChangChloride [Moles/Vol]104 mmol/WTaexnh09-616Sin [facility] HospitalComment on above:Performed By: #### BNP, BMP, LIPID ####[facility] [address] [address]Dr. Yilan ChangCO2 [Moles/Vol]26.0 mmol/CYfpvqx33.0-32.0The [facility] HospitalComment on above: Performed By: #### BNP, BMP, LIPID ####[facility] [address] [place], [place] [address]Dr. Yilan ChangCreatinine [Mass/Vol]2.91 mg/dL Critically high0.55-1.02The [facility] HospitalComforest health medical center on above:Performed By: #### BNP, BMP, LIPID ####[facility] [address] [place], [place] [address]Dr. Yilan ChangEGFR-AF EXZSUCCD29 mL/min/1.32k1Yowpbrtvss low>=60The [facility] HospitalComforest health medical center on above:Performed By: #### BNP, BMP, LIPID ####[facility] [address] [place], [place] [address]Dr. Yilan ChangEGFR-NON AF ZJPRFGHZ52 mL/min/1.57o6Sgnwypgbpf low>=60The [facility] HospitalComforest health medical center on above:Performed By: #### BNP, BMP, LIPID ####[facility] X[address] [place], [place] [address]Dr. Yitanisha Petty Glucose [Mass/Vol]110 mg/dLCritically eezt83-125Mop [facility] HospitalComment on above:Performed By: #### BNP, BMP, LIPID ####[facility] [address] [place], [place] [address]Dr. Yilan ChangPotassium [Moles/Vol]3.7 mmol/LNormal3.5-5.1The [facility] HospitalComment on above:Performed By: #### BNP, BMP, LIPID ####[facility] [address] [place], [place] [address]Dr. Yilan ChangSodium [Moles/Vol]141 mmol/UZhcosb104-114Cwu [facility] HospitalComment on above:Performed By: #### BNP, BMP, LIPID ####[facility] [address] [place], [place] [address]Bx. Aryan ChangUrea nitrogen [Mass/Vol]51.0 mg/dLCritically high7.0-18.0[facility] HospitalComment on above:Performed By: #### BNP, BMP, LIPID ####[facility] [address] [place], [place] [address]Lz. Aryan ChangUrea nitrogen/Creatinine [Mass ratio]17.5 mg/mgNormalThe [facility] HospitalComment on above:Performed By: #### BNP, BMP, LIPID ####[facility] [address] [place], [place] [address]Eg. Aryan PettyBasic Metabolic Panel Reflex Mgon 57-48-6001Yrqtw gap 3 molar conc10 mmol/LNormal7-13[facility] Medical CenterCalcium mass conc8.2 mg/dLLow8.6-10.2MWray Community District HospitalChloride molar yckq069 mmol/LCritically nvsu93-749GourgRose Medical CenterCO2 molar conc25 mmol/DDmtqnk71-21QaaffRose Medical CenterCreatinine mass conc1.21 mg/dLCritically high0.50-0.90[facility] Medical CenterGFR/1.73 sq M predicted among blacks MDRD vol rate/area (S/P/Bld)53.4 mL/min/{1.73_m2}Low>60 [facility] CenterComment on above:Result Comment: >60 mL/min/1.73m2 EGFR, calc. for ages 18 and older using theMDRD formula (not corrected for weight), is valid for stablerenal function.GFR/1.73 sq M.predicted MDRD vol rate/area44.2 mL/min/{1.73_m2}Low>60[facility] Medical CenterComment on above:Result Comment: >60 mL/min/1.73m2 EGFR, calc. for ages 18 and older using theMDRD formula (not corrected for weight), is valid for stablerenal function. Glucose mass qzjp960 mg/dLCritically qouz25-935FpetjRose Medical Center Potassium reflex Mg3.6 mEq/LNormal3.5-5.1MChildren's Hospital Colorado North Campusodium molar tgch951 mmol/BFjentb625-826JpeqaRose Medical CenterUrea nitrogen mass conc26 mg/dLCritically high8-23[facility] CenterCBC With Platelet and Differentialon 32-49-1627Mrgmjxwdl Auto #/vol (Bld)0.1 10*3/uLNormal0.0-0.2 [facility] CenterBasophils/100 WBC Auto (Bld)0.7 %[facility] CenterEosinophils Auto #/vol (Bld)0.3 10*3/uLNormal0.0-0.7[facility] CenterEosinophils/100 WBC Auto (Bld)3.1 %[facility] Medical CenterErythrocyte distribution width Auto Ratio (RBC)13.4 %Normal 11.5-14.5[facility] Medical CenterHematocrit Auto Volume Fraction (Bld)34.6 %Low37.0-47.0[facility] Medical CenterHemoglobin mass conc (Bld)12.0 g/dL Wlgxjw91.0-16.0[facility] CenterLymphocytes Auto #/vol (Bld)2.3 10*3/uLNormal1.0-4.8[facility] Medical CenterLymphocytes/100 WBC Auto (Bld) 24.2 %[facility]letonH Auto Entitic mass (RBC)33.0 pg Critically high27.0-31.3Mbarnesville hospitaly [facility] Community HospitalMCHC Auto mass conc (RBC) 34.6 %Nvsvbw84.0-37.0[facility] Medical CenterMCV Auto Entitic volume (RBC) 95.4 qANvthtf01.0-100.0[facility] CenterMonocytes Auto #/vol (Bld) 0.9 10*3/uLCritically high0.2-0.8[facility] CenterMonocytes/100 WBC Auto (Bld)9.8 %[facility] Medical CenterNeutrophils Auto #/vol (Bld) 5.9 10*3/uLNormal1.4-6.5[facility] Medical CenterNeutrophils/100 WBC Auto (Bld)62.2 %NormalMercy Regional Medical CenterPlatelets Auto #/vol (Bld)139 10*3/sHPiahmj042-669RkyahRose Medical CenterRBC Auto #/vol (Bld)3.62 10*6/uLLow4.20-5.40[facility] CenterWBC Auto #/vol (Bld)9.5 10*3/uL Normal4.8-10.8[facility] CenterBasic Metabolic Panelon 06-06-2018 Anion gap 3 molar conc11 mmol/LNormal7-13[facility] CenterCalcium mass conc8.3 mg/dLLow8.6-10.2MWray Community District HospitalChloride molar dsgr735 mmol/GKrhimy46-756BcmkrRose Medical CenterCO2 molar conc26 mmol/LNormal 22-29[facility] CenterCreatinine mass conc1.90 mg/dLCritically high 0.50-0.90[facility] CenterGFR/1.73 sq M predicted among blacks MDRD vol rate/area (S/P/Bld)31.8 mL/min/{1.73_m2}Low>60[facility] Comment on above:Result Comment: >60 mL/min/1.73m2 EGFR, calc. for ages 18 and older using theMDRD formula (not corrected for weight), is valid for stablerenal function.GFR/1.73 sq M.predicted MDRD vol rate/area26.2 mL/min/{1.73_m2}Low>60 [facility] CenterComment on above:Result Comment: >60 mL/min/1.73m2 EGFR, calc. for ages 18 and older using theMDRD formula (not corrected for weight), is valid for stablerenal function.Glucose mass ikxe941 mg/dLCritically kcyf05-434RttzsRose Medical CenterPotassium molar conc4.1 mmol/LNormal 3.5-5.1MChildren's Hospital [facility] North Campusodium molar xmrp062 mmol/LFjomxa772-009 [facility] CenterUrea nitrogen mass conc25 mg/dLCritically high8-23 [facility] CenterCBC With Platelet and Differentialon 06-06-2018 Basophils Auto #/vol (Bld)0.0 10*3/uLNormal0.0-0.2MWray Community District Hospital Basophils/100 WBC Auto (Bld)0.1 %[facility] CenterEosinophils Auto #/vol (Bld)0.0 10*3/uLNormal0.0-0.7[facility] Eosinophils/100 WBC Auto (Bld)0.0 %[facility] Erythrocyte distribution width Auto Ratio (RBC)13.5 %Ylktgt77.5-14.5[facility] Medical CenterHematocrit Auto Volume Fraction (Bld)35.0 %Low37.0-47.0 [facility] CenterHemoglobin mass conc (Bld)12.0 g/dGFpduge17.0-16.0 [facility] CenterLymphocytes Auto #/vol (Bld)1.0 10*3/uLNormal 1.0-4.8[facility] Medical CenterLymphocytes/100 WBC Auto (Bld)8.2 %Normal [facility] HospitalH Auto Entitic mass (RBC)32.8 pgCritically high 27.0-31.3MWray Community District HospitalMCHC Auto mass conc (RBC)34.4 %Normal 33.0-37.0[facility] CenterMCV Auto Entitic volume (RBC)95.3 fLNormal 82.0-100.0[facility] CenterMonocytes Auto #/vol (Bld)1.0 10*3/uL Critically high0.2-0.8[facility] CenterMonocytes/100 WBC Auto (Bld) 8.0 %[facility] CenterNeutrophils Auto #/vol (Bld)10.1 10*3/uL Critically high1.4-6.5[facility] CenterNeutrophils/100 WBC Auto (Bld)83.7 %[facility] CenterPlatelets Auto #/vol (Bld)146 10*3/bXSttxos512-499UomdmRose Medical CenterRBC Auto #/vol (Bld)3.67 10*6/uLLow4.20-5.40[facility] CenterWBC Auto #/vol (Bld)12.1 10*3/uL Critically high4.8-10.8[facility] CenterXR CHEST (2 VW)on 09-19-2018 XR CHEST (2 VW)EXAMINATION: XR CHEST (2 [...] Interpreted b y:ANDRA Dominguezigned by:Joss Casas MD06/06/18Final resultNormalRose Medical CenterBasic Metabolic Panel Reflex Mgon 24-92-1408Tpevt gap 3 molar conc11 mmol/LNormal7-13[facility] CenterCalcium mass conc8.9 mg/dLNormal8.6-10.2MWray Community District HospitalChloride molar plaw864 mmol/L Apghzo50-185IhrxyRose Medical CenterCO2 molar conc25 mmol/JKiysbq82-41IyjqhRose Medical CenterCreatinine mass conc0.86 mg/dLNormal0.50-0.90[facility] CenterGFR/1.73 sq M predicted among blacks MDRD vol rate/area (S/P/Bld)mL/min/{1.73_m2}Normal>60[facility] CenterComment on above: Result Comment: >60 mL/min/1.73m2 EGFR, calc. for ages 18 and older using theMDRD formula (not corrected for weight), is valid for stablerenal function. GFR/1.73 sq M.predicted MDRD vol rate/areamL/min/{1.73_m2}Normal>60[facility] CenterComment on above:Result Comment: >60 mL/min/1.73m2 EGFR, calc. for ages 18 and older using theMDRD formula (not corrected for weight), is valid for stablerenal function.Glucose mass ftxt077 mg/dLCritically dqgj51-320 [facility] CenterPotassium reflex Mg4.0 mEq/LNormal3.5-5.1MChildren's Hospital Colorado North Campusodium molar dkdy899 mmol/TVimyuw846-973IiepfRose Medical CenterUrea nitrogen mass conc13 mg/dLNormal8-23[facility] CenterCBC With Platelet and Differentialon 59-95-2330IEV morphology finding Nom (Bld)NormalNormalRose Medical CenterPlatelet Slide ReviewNormalNormal [facility] CenterBasophils Auto #/vol (Bld)0.1 10*3/uLNormal0.0-0.2 [facility] CenterBasophils/100 WBC Auto (Bld)1.0 %[facility] CenterEosinophils Auto #/vol (Bld)0.0 10*3/uLNormal0.0-0.7[facility] CenterEosinophils/100 WBC Auto (Bld)0.4 %[facility] CenterErythrocyte distribution width Auto Ratio (RBC)13.5 %Normal 11.5-14.5[facility] Medical CenterHematocrit Auto Volume Fraction (Bld)40.5 %Fjnwfi27.0-47.0[facility] CenterHemoglobin mass conc (Bld)13.7 g/dL Zdevlt75.0-16.0[facility] CenterLymphocytes Auto #/vol (Bld)2.0 10*3/uLNormal1.0-4.8[facility] CenterLymphocytes/100 WBC Auto (Bld) 15.5 %[facility] CenterMCH Auto Entitic mass (RBC)32.4 pg Critically high27.0-31.3MChildren's Hospital Colorado South CampusHC Auto mass conc (RBC) 33.9 %Fklksd03.0-37.0[facility] CenterMCV Auto Entitic volume (RBC) 95.6 eVQmxmhf95.0-100.0[facility] CenterMonocytes Auto #/vol (Bld) 1.3 10*3/uLCritically high0.2-0.8[facility] CenterMonocytes/100 WBC Auto (Bld)10.1 %[facility] CenterNeutrophils Auto #/vol (Bld) 9.4 10*3/uLCritically high1.4-6.5[facility] CenterNeutrophils/100 WBC Auto (Bld)73.0 %NormalRose Medical CenterPlatelets Auto #/vol (Bld)168 10*3/sPLhxdfd589-737ZojjsRose Medical CenterRBC Auto #/vol (Bld) 4.24 10*6/uLNormal4.20-5.40[facility] CenterWBC Auto #/vol (Bld)12.9 10*3/uLCritically high4.8-10.8[facility] CenterPOCT Glucoseon 65-82-0338Iaeqgxw mass mnkz379 mg/dLCritically hoyj90-221MfkimRose Medical CenterXR LUMBAR SPINE (2-3 VIEWS)on 99-91-7641XF LUMBAR SPINE (2-3 VIEWS) EXAMINATION: XR LUMBAR [...] L5-S1.Interpreted by:ANDRA Sotoigned by:Tanvir Power MD06/05/18Final resultNormal [facility] CenterBasic Metabolic Panel Reflex Mgon 90-71-3262Quzhe gap 3 molar conc13 mmol/LNormal7-13[facility] CenterCalcium mass conc9.1 mg/dLNormal8.6-10.2MWray Community District HospitalChloride molar znxl093 mmol/MNboppq88-916BahmpRose Medical CenterCO2 molar conc23 mmol/LNormal 22-29[facility] CenterCreatinine mass conc1.08 mg/dLCritically high 0.50-0.90[facility] CenterGFR/1.73 sq M predicted among blacks MDRD vol rate/area (S/P/Bld)mL/min/{1.73_m2}Normal>60[facility] Comment on above:Result Comment: >60 mL/min/1.73m2 EGFR, calc. for ages 18 and older using theMDRD formula (not corrected for weight), is valid for stablerenal function.GFR/1.73 sq M.predicted MDRD vol rate/area50.4 mL/min/{1.73_m2}Low>60 [facility] CenterComment on above:Result Comment: >60 mL/min/1.73m2 EGFR, calc. for ages 18 and older using theMDRD formula (not corrected for weight), is valid for stablerenal function.Glucose mass ousw680 mg/dLCritically oxby09-638SchxgRose Medical CenterPotassium reflex Mg4.3 mEq/LNormal3.5-5.1 [facility] Centerodium molar ismr845 mmol/UPiwvvh896-334QvvvvRose Medical CenterUrea nitrogen mass conc21 mg/dLNormal8-23[facility] CenterCB With Platelet No Differentialon 72-62-2082Knllmmoufxh distribution width Auto Ratio (RBC)13.4 %Pojorm98.5-14.5[facility] CenterHematocrit Auto Volume Fraction (Bld)44.5 %Gqtqrc97.0-47.0[facility] CenterHemoglobin mass conc (Bld)15.2 g/dDRfkdzh21.0-16.0[facility]. [facility] HospitalH Auto Entitic mass (RBC)32.6 pgCritically high27.0-31.3MChildren's Hospital Colorado South CampusHC Auto mass conc (RBC)34.3 %Fgvbjs50.0-37.0[facility] CenterMCV Auto Entitic volume (RBC)95.1 nWEmsvlf94.0-100.0[facility] CenterPlatelets Auto #/vol (Bld)163 10*3/oWGzwtyg076-233AxsvlRose Medical CenterRBC Auto #/vol (Bld)4.68 10*6/uLNormal4.20-5.40[facility] CenterWBC Auto #/vol (Bld)8.3 10*3/uLNormal4.8-10.8[facility] CenterFLUORO FOR SURGICAL PROCEDURESon 62-31-3571OBIDSN FOR SURGICAL PROCEDURESEXAMINATION: Intraoperative lumbar fusion.CLINICAL HISTORY: [...] the soft tissue anterior to the spinal column.[place] bone intact.Please see procedural note for more detailed.IMPRESSION: INTRAOPERATIVE PLIF L3- L5.Interpreted by:ANDRA Dominguezigned by:Joss Casas MD06/04/inal resultNormalRose Medical CenterPOCT Glucoseon 73-14-6048Xjxahku mass zfvl960 mg/eKSelupf87-830DvcbmRose Medical CenterPOC Performed onACCU-CHEK NormalPlatte Valley Medical Centerurgical Specimenon 02-06-7623Zisxdydj SpecimenInvalid Interpretation [facility] CenterComment on above:Result Comment: [place] [address] [facility] SURGICAL PATHOLOGY REPORTPatient Name: MARLENI DENNIS Accession No: [id number] Age Sex: 1950 Location: [place] [id number] No: [id number] Collected: 06/04/2018Med Rec No: [id number] Received: 06/05/2018Attend Phys: SHAKA DESIRAE Completed: 06/07/2018Perform [...] two cassettes after a brief decalcification. ALDWA/SCDANCPT: [phone] X5IZNPONGIULIA ENGEL M.D. 06/07/2018 Electronically signed out by Page 1 of 1Basic Metabolic Panelon 11-54-1449Zhbrc gap 3 molar conc14 mmol/LCritically high7-13 [facility] CenterCalcium mass conc9.7 mg/dLNormal8.6-10.2MWray Community District HospitalChloride molar xxdb395 mmol/AHpcaap84-606NubdmRose Medical CenterCO2 molar conc25 mmol/PUxnozc77-67WfuofRose Medical Center Creatinine mass conc1.15 mg/dLCritically high0.50-0.90[facility] CenterGFR/1.73 sq M predicted among blacks MDRD vol rate/area (S/P/Bld)56.7 mL/min/{1.73_m2}Low>60[facility] CenterComment on above:Result Comment: >60 mL/min/1.73m2 EGFR, calc. for ages 18 and older using theMDRD formula (not corrected for weight), is valid for stablerenal function.GFR/1.73 sq M.predicted MDRD vol rate/area46.8 mL/min/{1.73_m2}Low>60[facility] CenterComment on above:Result Comment: >60 mL/min/1.73m2 EGFR, calc. for ages 18 and older using theMDRD formula (not corrected for weight), is valid for stablerenal function.Glucose mass tfmm446 mg/nLOynoti78-848MzzcqRose Medical CenterPotassium molar conc3.6 mmol/LNormal3.5-5.1MChildren's Hospital Colorado North Campusodium molar zwzj191 mmol/REqmanp583-501JlyuiRose Medical CenterUrea nitrogen mass conc21 mg/dLNormal8-23[facility] CenterCBC With Platelet No Differentialon 51-35-5077Zhfjtpcrgrz distribution width Auto Ratio (RBC)13.5 %Mzbqbk29.5-14.5[facility] Medical CenterHematocrit Auto Volume Fraction (Bld)44.4 %Prxhyf13.0-47.0[facility] CenterHemoglobin mass conc (Bld)15.5 g/zWLvhqdr87.0-16.0[facility]. [facility] HospitalH Auto Entitic mass (RBC)33.0 pgCritically high27.0-31.3MChildren's Hospital Colorado South CampusHC Auto mass conc (RBC)34.9 %Qztteh05.0-37.0[facility] CenterMCV Auto Entitic volume (RBC)94.4 gCHaghay80.0-100.0[facility] Platelets Auto #/vol (Bld)199 10*3/eLVesgoz034-318AkkjdRose Medical Center RBC Auto #/vol (Bld)4.71 10*6/uLNormal4.20-5.40[facility] CenterWBC Auto #/vol (Bld)7.0 10*3/uLNormal4.8-10.8[facility] CenterCulture, MRSA Screenon 00-95-1447Ogsgygy, MRSA ScreenORDER#: [id number] ORDERED BY: CLIFTON STONE: Nares Nasal COLLECTED: 05/23/18 11:37ANTIBIOTICS AT SERGIO.: RECEIVED : 05/23/18 11:37Culture, MRSA Screen FINAL 05/24/18 12:57 No MRSA isolatedDenver Health Medical CenterCultcorewell health william [facility], Urineon 05-23-2018 Culture, UrineORDER#: [id number] ORDERED BY: CLIFTON STONE: Urine Clean Catch COLLECTED: 05/23/18 12:44ANTIBIOTICS AT SERGIO.: RECEIVED : 05/23/18 12:44Culture, Urine FINAL 05/25/18 10:55 No growth 24 hoursNoParkview Pueblo West HospitalProthrombin Timeon 77-69-1172DPQ Coag RelTime (PPP)1.1 {INR}Normal [facility] CenterComment on above:Result Comment: Recommended INR [...] 22.6 secProthrombin time (PT) Coag time (PPP)11.0 sNormal9.6-12.3MWray Community District HospitalType and Screen Capture 3 scrn cellon 62-90-1466Dgjzgiemt mass concPATIENT: WENDY ANDRADE LOC: [place] BILL# : [id number] : 1950 SEX: FORDERED BY: CHASE Lua ORDERED : 05/23/2018 09:33 COLLECTED: 05/23/2018 11:41ORDER : [id number] RECEIVED : 05/23/2018 11:41 ---TEST NAME RESULT UNITS RANGES ABN FL STABORH Capture AB POS FAntibody 3 Cell Scrn Captu NEG F---- Normal [facility] CenterUrinalysis, reflex to cultureon 27-41-2653Frkgz Reflexed to CultureYESDenver Health Medical CenterBilirubin Ql (U) NegativeNormalNegLincoln Community HospitalClarity Nom (U)ClearNormal ClearRose Medical CenterColor Nom (U)YellowNormalStraw/YellRose Medical CenterGlucose Ql (U)NegativeNormalNegLincoln Community HospitalHemoglobin Test strip Ql (U)NegativeNormalNegLincoln Community HospitalKetones Ql (U)TRACEAbnormalNegLincoln Community Hospital Leukocyte esterase Test strip Ql (U)TRACEAbnormalNegLincoln Community HospitalNitrite Test strip Ql (U)NegativeNormalNegLincoln Community HospitalpH Test strip (U)6.0 [pH]Normal5.0-9.0[facility] CenterProtein Test strip Ql (U)TRACEAbnormalNegativePlatte Valley Medical Centerpecific gravity Relative Density (U)1.502Uipeug2.005-1.03[facility] Urobilinogen Test strip Qn (U)0.2 {Dago'U}/dLNormal< 2.0[facility] Medical CenterUrine Microscopicon 49-12-3222Oxegy LM.LPF #/area (Urine sed)0-1 HyalineNormalRose Medical CenterRBC Test strip #/vol (U)5-4Iakswr9-8 [facility] CenterUrine Amorphous1+NormalRose Medical CenterWBC #/vol (U)1-0Jfprzb1-1IknfoRose Medical CenterXR SPINE ENTIRE (2-3 VIEWS)on 10-28-6290XR SPINE ENTIRE (2-3 VIEWS)PREOP NO DICTATION Interpreted by: Barb Wetzel MD Signed by: Barb Wetzel MD 06/08/18 Final resultNormProwers Medical Center Vital Signs Date TimeVital SignValuePerforming VwxusfcypTadyxmnj27-63-7385 16:15-0400 Diastolic blood gltzkumo70 mm[Hg]Jack Vogt II Work Phone: [phone])667-[address] [place], [place] 8800710-28-2025 16:15-0400 Systolic blood asgzqkxx756 mm[Hg]Jack Vogt II Work Phone: [phone] [place], [place] 8800710-28-2025 16:07-0400 Body ehdaea009.94 cmDasherleymaricruz Vogt II Work Phone: [phone] [place], [place] 8800710-28-2025 16:07-0400 Body mass index (BMI) [Ratio]25 kg/g2Rghyxf Vogt II Work Phone: [phone] [place], [place] 8800710-28-2025 16:07-0400 Body rvobzt63.93 kgDasherleymaricruz Vogt II Work Phone: [phone])503-[address] [place], [place] 8800710-28-2025 16:07-0400 Heart rate64 /minDadonisel Vogt II Work Phone: [phone])352-[address] [place], [place] 8800710-28-2025 16:07-0400 Respiratory rate16 /minDsrikanth Vogt II Work Phone: [facility]10-28-2025 16:07-0400 SaO2% (BldA) [Mass fraction]98 %Jack Vogt II Work Phone: [facility]10-10-2025 13:28-0400 Body cpobgwptgzn91.5 [degF]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 CASSANDRA DEVELOPER Work Phone: [facility] HospitalWvlcipjmhn10-30-4514 13:28-0400Diastolic blood kxedmpyu25 mm[Hg]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 CASSANDRA DEVELOPER Work Phone: [facility] HospitalNklmbgsbeh79-55-0506 13:28-0400Heart rate66 /min 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 CASSANDRA DEVELOPER Work Phone: [facility] HospitalDyjnerqnmo62-18-1251 13:28-4670EqO2% (BldA) [Mass fraction]98 %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 CASSANDRA DEVELOPER Work Phone: [facility] HospitalZrbbcgjxkr25-90-6376 13:28-0400Systolic blood mm[Hg]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 CASSANDRA DEVELOPER Work Phone: [facility] HospitalVjvflhobuu33-44-1134 11:14-0400Body xmlcal452.5 cmJack Vogt MD Work Phone: [facility] HospitalLfcrtwlxrx25-69-2234 11:14-0400Body mass index (BMI) [Ratio]23.59 kg/b9DgunjgJack Vogt MD Work Phone: [phone] HospitalTokefghexu98-22-5939 11:14-0400Body udrkpp41.51 kgJack Vogt MD Work Phone: [facility] HospitalSlcqcyzgcp40-85-2170 11:14-0400Diastolic blood vsybzlen69 mm[Hg]Jack Vogt MD Work Phone: [facility] HospitalZohcvzarcp08-32-1382 11:14-0400Heart rate57 /min Jack Vogt MD Work Phone: [facility] HospitalYdjjxlkovk63-44-4620 11:14-2917YoV4% (BldA) [Mass fraction]98 %Jack Vogt MD Work Phone: [facility] HospitalYgbtwemnmd89-19-2441 11:14-0400Systolic blood mm[Hg]Jack Votg MD Work Phone: [phone] HospitalFftvgprwcc47-12-7430 12:14-0400Body kxaapqnqhxj80 [degF]Jack Vogt II Work Phone: [phone] [place], [place] 0764207-25-2025 12:14-0400 Diastolic blood tidmcaun62 mm[Hg]Jack Vogt II Work Phone: [phone] [place], [place] 0764207-25-2025 12:14-0400 Heart rate66 /Cora Vogt II Work Phone: [phone] [place], [place] 0764207-25-2025 12:14-0400 Respiratory rate18 /Cora Vogt II Work Phone: [phone] [place], [place] 0764207-25-2025 12:14-0400 SaO2% (BldA) [Mass fraction]90 %Jack Vogt II Work Phone: [phone] [place], [place] 0764207-25-2025 12:14-0400 Systolic blood qtyspbef109 mm[Hg]Jack Vogt II Work Phone: [phone] [place], [place] 0764207-25-2025 04:55-0400 Body .4 kgDaeldon Vogt II Work Phone: [phone] [place], [place] 0764207-24-2025 07:28-0400 Inhaled oxygen flow rate3 L/Cora Vogt II Work Phone: [phone] [place], [place] 0764207-23-2025 02:12-0400 Body vhkovm656.94 cmDaeldon Vogt II Work Phone: [phone] [place], [place] 0764207-23-2025 01:25-0400 SaO2% (BldA) [Mass fraction]96 %Jack Vogt II Work Phone: [phone])[address] [place], [place] 0764207-23-2025 01:09-0400 Diastolic blood ysoqtqpu26 mm[Hg]Jack Vogt II Work Phone: 1(168)889-[address] [place], [place] 8800707-23-2025 01:09-0400 Heart rate71 /Cora Vogt II Work Phone: [phone])[address] [place], [place] 0764207-23-2025 01:09-0400 Inhaled oxygen flow rate2 L/Leandroel Vogt II Work Phone: [phone] [place], [place] 0764207-23-2025 01:09-0400 Respiratory rate18 /Cora Vogt II Work Phone: [phone] [place], [place] 0764207-23-2025 01:09-0400 Systolic blood mhwgwgeu142 mm[Hg]Jack Vogt II Work Phone: [phone])[address] [place], [place] 0764207-22-2025 18:56-0400 Body ojexbwzgosm03.5 [degF]Jack Vogt II Work Phone: [phone] [place], [place] 0764207-22-2025 17:59-0400 Body ewlrnj864.94 cmDasherleyel Vogt II Work Phone: [phone])[address] [place], [place] 0764207-22-2025 17:59-0400 Body iufrkg11.77 kgDasherleyel Vogt II Work Phone: [phone])[address] [place], [place] 0764207-22-2025 16:22-0400 Diastolic blood zfolxvqp68 mm[Hg]Jack Vogt II Work Phone: 1(213)[address] [place], [place] 0764207-22-2025 16:22-0400 Systolic blood jlridzcy581 mm[Hg]Jack Vogt II Work Phone: 1(103)[address] [place], [place] 0764207-22-2025 16:02-0400 Body uertbn094.94 cmDasherleyel Vogt II Work Phone: [phone])[address] [place], [place] 0764207-22-2025 16:02-0400 Body mass index (BMI) [Ratio]27.3 kg/r0Goijbx Vogt II Work Phone: [phone])[address] [place], [place] 0764207-22-2025 16:02-0400 Body .77 kgDasherleyel Vogt II Work Phone: [phone]07-22-2025 16:02-0400 Heart rate63 /Cora Vogt II Work Phone: 1(613)361-[address] [place], [place] 8800707-22-2025 16:02-0400 Respiratory rate16 /Cora Vogt II Work Phone: [phone])255-[address] [place], [place] 8800707-22-2025 16:02-0400 SaO2% (BldA) [Mass fraction]99 %Jack Vogt II Work Phone: [phone])556-[address] [place], [place] 8800707-16-2025 14:31-0400 Body dvdhurgebts29.5 [degF]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 CASSANDRA DEVELOPER Work Phone: [facility] HospitalNxkahpumzq40-37-3752 14:31-0400Heart rate58 /min 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 CASSANDRA DEVELOPER Work Phone: [phone] HospitalMupcbexyyn17-72-1348 14:31-4251DiO3% (BldA) [Mass fraction]98 %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 CASSANDRA DEVELOPER Work Phone: [facility] HospitalDedaqtsusm81-77-9761 16:44-0400Body uiwvrk075.5 cmJack Vogt MD Work Phone: [facility] HospitalXffgmnwbtq15-44-1968 16:44-0400Body mass index (BMI) [Ratio]26.34 kg/g7NijspgJack Vogt MD Work Phone: [facility] HospitalRbexccqxxw05-01-7614 16:44-0400Body weawjq79.32 kgJack Vogt MD Work Phone: [facility] HospitalPujcrngejx34-45-3312 16:44-0400Diastolic blood oniioxus77 mm[Hg]Jack Vogt MD Work Phone: [facility] HospitalJpjpvmevmo07-93-0558 16:44-0400Heart rate76 /min Jack Vogt MD Work Phone: [facility] HospitalVneehnlmvt21-75-1992 16:44-6280SxF0% (BldA) [Mass fraction]99 %Jack Vogt MD Work Phone: [facility] HospitalQrzhtctbdp72-59-3463 16:44-0400Systolic blood iyevgdvc136 mm[Hg]Jack Vogt MD Work Phone: [facility] HospitalBdcqtrigfx08-67-7053 11:40-0400Body jtnibt810.5 cmSoxana Moncada CASSANDRA DEVELOPER Work Phone: [phone])[facility]-0068[facility] HospitalQjfildxkvo95-78-7849 11:40-0400Body mass index (BMI) [Ratio]26.89 kg/x2XtkjltRenetta Moncada CASSANDRA DEVELOPER Work Phone: [facility] HospitalGmwrmazblf71-01-6204 11:40-0400Body .68 kgRenetta Moncada CASSANDRA DEVELOPER Work Phone: [facility] HospitalPqhdycltit06-74-7613 11:40-0400Diastolic blood bykycsny03 mm[Hg]Renetta Moncada CASSANDRA DEVELOPER Work Phone: [facility] HospitalXqlhevwccc63-35-0523 11:40-0400Heart rate74 /min Renetta Moncada CASSANDRA DEVELOPER Work Phone: [phone] [place], [place] [address]Qqdzdcmwuu73-31-3928 11:40-0400Respiratory rate16 /minSoxana Moncada CASSANDRA DEVELOPER Work Phone: [facility] HospitalYixqljgdko64-62-8818 11:40-1067BoI2% (BldA) [Mass fraction]97 %Renetta Moncada CASSANDRA DEVELOPER Work Phone: [facility] HospitalSkjffyxcug03-87-2997 11:40-0400Systolic blood mm[Hg]Renetta Moncada CASSANDRA DEVELOPER Work Phone: [facility] HospitalOjukestjdc65-90-1233 09:40-0400Body kwbgag953.8 cmJack Vogt MD Work Phone: [facility] HospitalYhqtmszrqd27-81-6080 09:40-0400Body mass index (BMI) [Ratio]28.08 kg/o5HwbxdhJack Vogt MD Work Phone: [facility] HospitalFeivqdjcsp13-96-3294 09:40-0400Body vzvzul00.76 kgJack Vogt MD Work Phone: [facility] HospitalWhmzpqrppt20-35-9964 09:40-0400Diastolic blood xprtluyv98 mm[Hg]Jack Vogt MD Work Phone: [facility] HospitalDnznajfump49-92-3683 09:40-0400Heart rate62 /min Jack Vogt MD Work Phone: [facility] HospitalFkhupauabl69-63-3487 09:40-5001AaY6% (BldA) [Mass fraction]96 %Jack Vogt MD Work Phone: [facility] HospitalYnhccwqeya46-00-4929 09:40-0400Systolic blood dcavacrp685 mm[Hg]Jack Vogt MD Work Phone: [facility] HospitalGrflpdcwis54-05-6299 11:41-0400Body hviyqm624.8 cmDaeldon Vogt MD Work Phone: [phone] HospitalVwnyrxxopp50-20-1032 11:41-0400Body mass index (BMI) [Ratio]28.44 kg/i1MrotmmJack Vogt MD Work Phone: [phone] HospitalZdrokmmuuv41-01-3542 11:41-0400Body yveoev55.67 kgJack Vogt MD Work Phone: [facility] HospitalUoqinncorr02-92-7751 11:41-0400Diastolic blood rpobctpg21 mm[Hg]Jack Vogt MD Work Phone: [facility] HospitalEpukbtiznl75-08-3352 11:41-0400Heart rate65 /min Jack Vogt MD Work Phone: [facility] HospitalFgaowjrbln95-26-3783 11:41-8100KfX0% (BldA) [Mass fraction]96 %Jack Vogt MD Work Phone: [facility] HospitalEjjfoxmwwi82-56-9807 11:41-0400Systolic blood mm[Hg]Jack Vogt MD Work Phone: [facility] [id number] 13:19-0500Blood Pressure Elsi CARDENAS [facility]03-03-2025 13:19-0500Body yvjlvegjmty25.6 [degF]Alfredo CARDENAS [facility]03-03-2025 13:19-0500Diastolic blood tictdljo10 mm[Hg]Alfredo CARDENAS [facility]03-03-2025 13:19-0500Heart rate70 /minPatrick CAREDNAS [facility]03-03-2025 13:19-0500Respiratory rate16 /minPatrick CARDENAS [facility]03-03-2025 13:19-0500Systolic blood mm[Hg]Alfredocodi CARDENAS [facility]03-07-2024 14:31-0500Body anmgxb062.02 cmII Jcak Vogt Work Phone: [facility]03-07-2024 14:31-0500 Body mass index (BMI) [Ratio]31 kg/m2II Jack Vogt Work Phone: [facility]03-07-2024 14:31-0500 Body lrqaer11.46 kgII Jack Vogt Work Phone: [facility]02-05-2024 12:31-0500 Blood Pressure LocationPatrick CARDENAS [facility]02-05-2024 12:31-0500Diastolic blood vqltabdx06 mm[Hg]Alfredo CARDENAS [facility] [facility]02-05-2024 12:31-0500Heart rate62 /minPatrick CARDENAS [facility]02-05-2024 12:31-0500Respiratory rate16 /minPatrick CARDENAS [facility]02-05-2024 12:31-0500Systolic blood mm[Hg]Alfredo CARDENAS [facility]01-09-2023 12:59-0500Blood Pressure LocationPatrick CARDENAS [facility]01-09-2023 12:59-0500Diastolic blood grxrlote65 mm[Hg]Alfredo CARDENAS [facility]01-09-2023 12:59-0500Heart rate78 /minPatrick CARDENAS [facility]01-09-2023 12:59-0500Respiratory rate16 /minPatrick CARDENAS [facility]01-09-2023 12:59-0500Systolic blood yapbvmpc437 mm[Hg]Alfredo CARDENAS [facility]06-17-2022 10:16-0400Blood Pressure LocationPatricrosita CARDENAS [facility] 06-17-2022 10:16-0400Diastolic blood ugtdilqi49 mm[Hg] Alfredo CARDENAS [facility] 06-17-2022 10:16-0400Heart rate56 /minPatrick CARDENAS [facility] 06-17-2022 10:16-0400Respiratory rate16 /minPatrick CARDENAS [facility] 06-17-2022 10:16-0400Systolic blood ffohfcww139 mm[Hg] Alfredo CARDENAS [facility] Encounters Encounter DateEncounter TypeCare ProviderFacilityStart: 98-85-3773rjubmpqchy Alfredo CARDENASFacility:EU [place]vueStart: 07-22-2025 End: 69-24-9377Vxokcmvst Result EncounterGeneric External Data ProviderNOMS External Department UnsolicitedStart: 07-22-2025 End: 81-36-6148Exnqytjgl Result EncounterGeneric External Data ProviderNOMS External Department UnsolicitedStart: 07-15-2025 End: 17-55-2265fmatqfzavrYzmqdx Berry II Work Phone: [phone]-Kdmygrvfl Health Neph SandStart: 07-15-2025 End: 80-50-2238Sfbsfrg encounter Sergei Patino MD-[facility] Work Phone: Start: 07-11-2025 End: 39-42-7941Sinlcgbyl Result EncounterGeneric External Data ProviderNOMS External Department UnsolicitedStart: 07-11-2025 End: 81-85-9841Kjrscfmzw Result EncounterGeneric External Data ProviderNOMS External Department UnsolicitedStart: 71-20-1047Amm-patient / Non-visitElsy Patino MD-[facility] Work Phone: Start: 63-14-5938Ysp-patient / Non-visitElsy Patino MD-[facility] Work Phone: Start: 07-09-2025 End: 31-84-0186Jemfshkgz Result EncounterGeneric External Data ProviderNOMS External Department UnsolicitedStart: 07-09-2025 End: 50-94-5305Xdszshuln Result EncounterGeneric External Data ProviderNOMS External Department UnsolicitedStart: 06-27-2025 End: 80-55-1754Vzetimqks encounter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 CASSANDRA DEVELOPER Work Phone: [facility] ACOStart: 06-27-2025 End: 75-03-9263Ksmj visit est pt mod-hi severity 40 minutes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 CASSANDRA DEVELOPER Work Phone: noms [facility] ACOComment on above:Chronic kidney disease, stage 4 (severe) (HCC) (Primary Dx); Chronic diastolic congestive heart failure (HCC); Atherosclerosis of [place] coronary artery of [place] heart with stable angina pectoris; Benign essential hypertension; Degenerative lumbar spinal stenosis; Radiculopathy of lumbar region; Spinal stenosis, lumbar region with neurogenic claudication; Spondylolisthesis of lumbar region; Need for home health care; Routine lab draw; Advanced care planning/counseling discussionStart: 06-27-2025 End: 72-07-2324Abzjgsw encounter status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 CASSANDRA DEVELOPER Work Phone: noms HealthcareStart: 06-09-2025 End: 84-92-1098Uguegs Berenice Vogt MD Work Phone: NOUV [facility] MedinceStart: 06-09-2025 End: 67-74-4849Jwvggp Berenice Vogt MD Work Phone: NOHA [facility] MedinceStart: 06-09-2025 End: 77-35-3640Hedixfmmd Result EncounterJack Vogt MD Work Phone: noms External Department UnsolicitedStart: 06-09-2025 End: 34-01-0624Tkypnx outpatient visit 40 minutesJack Vogt MD Work Phone: NOUY [facility] [facility] MedinceComment on above:Chronic kidney disease, stage 4 (severe) (HCC) (Primary Dx); Benign essential hypertension ; Functional diarrhea; 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 ; Chronic diastolic congestive heart failure (HCC); HypokalemiaStart: 06-09-2025 End: 60-90-4195fwfumamqwlAJVGDJ B BERRYNot AvailableStart: 04-08-2025 End: 96-30-5284Twimrzxccs and management of inpatientObaydsandra Valdez MD-[facility] Work Phone: Start: 87-00-1035Ygn-patient / Non-visitJolala Arrington MD-[facility] Work Phone: Start: 04-08-2025 End: 50-10-7201itqlopwonuCmvbco Berry II Work Phone: [facility] Work Phone: Start: 04-08-2025 End: 16-65-7446Fbkyjdk encounter procedureElsy Patino MD-[facility] [place] Work Phone: Start: 04-04-2025 End: 21-71-3159abtjvlvhrbAJFIKettering Health Hamiltontart: 04-02-2025 End: 58-90-6615Grsu visit est pt mod-hi severity 40 minutesDejose Gonzalez CASSANDRA DEVELOPER Work Phone: noms [facility] ACOComment on above:Benign essential hypertension (Primary Dx); Chronic kidney disease, stage 4 (severe) (HCC); Localized edema; Right flank pain; Routine lab drawStart: 04-02-2025 End: 98-44-3741Cmjifzo encounter statusDejose Gonzalez CASSANDRA DEVELOPER Work Phone: noms HealthcareStart: 03-25-2025 End: 14-39-5479CkqtgeUyblr Jodie LPNNOMS CI FMComment on above:Benign essential hypertension ; Gastroesophageal reflux disease, unspecified whether esophagitis present; Insomnia due to medical conditionStart: 03-24-2025 End: 04-18-5785awtdtotqdlPMQBJI B BERRYNot AvailableStart: 03-24-2025 End: 45-68-1720Pfrxjmehjyas care manage srvc 14 day dischargeDsrikanth Vogt MD Work Phone: noms CI FMComment on above:Atherosclerosis of [place] coronary artery of [place] heart with stable angina pectoris (Primary Dx); Type 2 diabetes mellitus with stage 4 chronic kidney disease, without long-term current use of insulin (HCC); Insomnia due to medical condition; Chronic kidney disease, stage 4 (severe) (HCC); Primary osteoarthritis of both kneesStart: 65-29-2242Umqpsqqloc and management of inpatientCALEB T [facility]art: 03-13-2025 Evaluation and management of inpatientCALEB T [facility] Centertart: 21-51-7742Tpnpxbxsry and management of inpatientCALEB T [facility] Centertart: 25-94-2167Ychlshcpoc and management of inpatientCALEB T [facility] Centertart: 03-13-2025 End: 32-28-8749Aeyatnpxlt and management of inpatientJEFFERY [facility]: 02-25-2025 End: 39-95-1314Wyqtvr Jason Moncada CASSANDRA DEVELOPER Work Phone: NOMS CI FMStart: 02-25-2025 End: 97-39-2932Ujuypvgopi Moncada CASSANDRA DEVELOPER Work Phone: NOMS CI FMStart: 02-25-2025 End: 93-30-6199Jihncp outpatient visit 25 minutesRenetta Moncada CASSANDRA DEVELOPER Work Phone: NOMS CI FMComment on above:Thyroid nodule (CMS/HCC) (Primary Dx); 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/HCC); Chronic kidney disease, stage 4 (severe) (CMS/HCC); Hair loss; Other fatigue; Weight loss; Depressive disorder (CMS/HCC); Decreased estrogen levelStart: 02-25-2025 End: 95-56-2165xcgydzzzibGIBYJX M SHIVELYNot AvailableStart: 01-02-2025 End: 22-27-0708Nzvwfrgopi Vogt MD Work Phone: NOMS CI FMStart: 01-02-2025 End: 18-28-1144Ccwivbgopi Vogt MD Work Phone: NOMS CI FMStart: 01-02-2025 End: 63-97-4849dgmzdkszpjOIUYJA B BERRYNot AvailableStart: 01-02-2025 End: 10-37-1990Kwzdge outpatient visit 25 minutesJack Vogt MD Work Phone: NOMS CI FMComment on above:Stage 3b chronic kidney disease (HCC) (CMS/HCC) (Primary Dx); Pulmonary fibrosis, unspecified (CMS/HCC); Localized edema; Anxiety; Depressive disorder (CMS/HCC)Start: 12-12-2024 End: 12-29-7303Tvouql flowsLuis Vogt MD Work Phone: NOMS CI FMStart: 12-12-2024 End: 03-31-2461Fkfccm Berenice Vogt MD Work Phone: NOMS CI FMStart: 12-12-2024 End: 39-00-0982jkzuyxvtmaVOMXHC B BERRYNot AvailableStart: 12-12-2024 End: 61-71-2050Rwemc of hemosiderin, quantJack Vogt MD Work Phone: [facility] Work Phone: Start: 12-12-2024 End: 24-15-4588Lurdpll encounter procedureJack Vogt MD Work Phone: NOMS CI FMComment on above:Routine general medical examination at health care facility (Primary Dx); ACP (advance care planning); Spinal stenosis, lumbar region with neurogenic claudication; Stage 3b chronic kidney disease (HCC) (CMS/HCC); Pulmonary fibrosis, unspecified (CMS/HCC); Type 2 diabetes mellitus with diabetic peripheral angiopathy without gangrene (CMS/HCC); Localized edemaStart: 11-18-2024 End: 36-04-4744zjeladnoafVodliku R WATERSFacility:EU BellevueStart: 11-18-2024 End: 96-17-9055Fscjhkh encounter procedureAlfredo CARDENAS [facility] start: 11-03-2024 End: 39-75-8233CeqcspIovmng B Berry MD Work Phone: noms CI FMComment on above:AnxietyStart: 09-30-2024 End: 57-35-2570nvjxjyaugvKbmhscp R RONALDFacility:EU BellevueStart: 09-30-2024 End: 08-11-9143Itvcprv encounter procedurePaelza CARDENAS [facility] start: 09-20-2024 End: 88-80-1406Pvkdftrbw Result EncounterGeneric External Data ProviderNOMS External Department UnsolicitedStart: 09-20-2024 End: 44-30-5819Psozixpcu Result EncounterGeneric External Data ProviderNOMS External Department UnsolicitedStart: 09-16-2024 End: 01-71-8950QpogbySnpvsn B Berry MD Work Phone: noms CI FMComment on above:Insomnia due to medical conditionStart: 09-13-2024 End: 99-84-5418Nxqhyxshr Result EncounterGeneric External Data ProviderNOMS External Department UnsolicitedStart: 09-13-2024 End: 27-71-0550Rkyiendft Result EncounterGeneric External Data ProviderNOMS External Department UnsolicitedStart: 04-24-2024 End: 72-84-7858hwhkfrznpcAZDWSU [facility] Start: 03-19-2024 End: 56-58-0456absmckmenjWnuwse X OrzechFacility:EU BellevueStart: 03-19-2024 End: 82-01-5343Ezltzqk encounter procedureAurora X Orzech [facility] start: 06-27-8757nhsxvsacyaUoqxze X OrzechFacility:EU AfiaevueStart: 02-05-2024 End: 33-74-8450zbawmheyjfJSWilberto Vogt Work Phone: [facility] Work Phone: Start: 02-05-2024 End: 58-51-7713Clsnunh encounter procedureII Jack Vogt Work Phone: [facility] Work Phone: Start: 11-23-2023 End: 08-84-2488Sikncxm encounter procedureII Jack Vogt Work Phone: On License Of [facility] Work Phone: Start: 10-23-2023 End: 68-65-4546Pdlmlfn encounter procedureAlfredo CARDENAS [facility] start: 10-18-2023 End: 36-31-2880Ltsxvxold Result EncounterGeneric External Data ProviderNOMS External Department UnsolicitedStart: 10-18-2023 End: 57-97-2178Wpqizioyf Result EncounterGeneric External Data ProviderNOMS External Department UnsolicitedStart: 01-18-2023 End: 04-89-2167ecakuwggfjDOSWGJQ BOESFacility:J6Cipau: 01-10-2023 End: 65-06-2796frwkbopamjROUULPC BOESFacility:K7Detlx: 09-26-2022 End: 82-08-0807Zjktusk encounter procedureAlfredo CARDENAS [facility] start: 09-07-2022 End: 80-77-8999uaokgwveuvPPGQKM SHIVELYFacility:M1Fodye: 08-29-2022 End: 62-56-2031idgeylchorTKLWMEM WATERSFacility:L7Iiakl: 03-16-2022 End: 50-48-9619qaxqwzxqzkAPDUUUA ZHOUFacility:F4Wvjoe: 03-04-2022 End: 44-37-1697Dxjzles encounter procedurePaelza CARDENAS [facility] start: 02-22-2022 End: 94-61-7331evsnohatmzWSOBBNS WATERSFacility:S8Gcrcn: 02-16-2022 End: 22-84-1584iyektglipuQDDNRTJ BRYANERFacility:Q5Smqbi: 02-04-2022 End: 58-83-5258axjdpnyftaDKIFPIG TUCKERFacility:X8Uvwrl: 02-02-2022 End: 33-22-6919Ssepwyq encounter procedureII Jack Vogt Work Phone: [facility] Start: 01-31-2022 End: 07-48-1118zwbsrcjauwRTAOPUG XIMENAERFacility:S0Pcggv: 06-04-2018 End: 98-77-4345Pfoohexrtq and management of inpatientBO [facility] Auroratart: 05-23-2018 End: 50-01-8234Fquqbju encounterUniversity of Colorado Hospitaltart: 05-23-2018 End: 77-58-3231Mzxiomt encounterDelta County [facility] Procedures DateProcedureProcedure DetailPerforming ClinicianStart: 00-85-3323IGJ RENAL FUNCTION PANELGeneric External Data ProviderStart: 85-96-7104RAV URINE T PROTEIN CREAT RATIOGeneric External Data ProviderStart: 96-74-0027PWVM CBC WITH PLATELET NO DIFFERENTIALGeneric External Data ProviderStart: 06-27-2025 Comprehensive metabolic panelJack Vogt MD Work Phone: Start: 12-30-2209GMH PRO BNPJack Vogt MD Work Phone: Start: 83-62-7183GND CMP (CMP) (FOR REMOTE [facility] USE) Jack Vogt MD Work Phone: Start: 12-36-5493RSM W/REFLEX X6TcatveJack Vogt MD Work Phone: Start: 63-03-0188Mpokkhcc screenEarl HaleyComment on above:Result Comment: PERFORMED BY: [place] [address] [place] [place] [address] PATHOLOGIST COMPOSITION MIXER ELIZABETH MOREL M.D.Start: 85-61-5404Ikndf chest X-rayDaeldon Vogt II Work Phone: Start: 88-42-4125TX of abdomen and pelvis without contrastDaeldon Sin GUZMAN Work Phone: Start: 58-48-6177Iqiqifkbhj glycosylated w7lCnnquweldon Vogt MD Work Phone: Start: 67-68-1855Oer abdomen w/o & w/contrast material Generic External Data ProviderStart: 12-15-3624FJV CREATININEGeneric External Data ProviderStart: 02-05-2024 End: 39-37-4927Fjsgpyscz mammography of bilateral breastsII Jack Vogt Work Phone: Start: 14-95-4081Oknkrq X-rayII Jack Vogt Work Phone: Start: 88-90-5849W-ray of both kneesII Jack Vogt Work Phone: Start: 02-63-8647ZA LEG LEFT VENOUS + DOPPLERGeneric External Data ProviderStart: 83-20-0205Akfaucgnw mammography of bilateral breastsII Jack Vogt Work Phone: Start: 38-94-9288BvnapijpmkpLhzxtaz ProviderStart: 74-46-3915Muvbnix of coronary artery bypass graftingHistory of coronary artery bypass surgeryGeneric ProviderStart: 99-83-3233Mqjrmcl of placement of stent for coronary artery diseaseHistory of coronary artery stent placementGeneric ProviderStart: 28-72-1939BQNNKCEJI SPIROMETRY RTBO YOOStart: 28-66-3592KNUCV OXIMETRY, CONTINUOUSBO YOOStart: 27-14-3475RZEVAHKJZ SPIROMETRY RTBO YOOStart: 71-64-5022URWSXALET SPIROMETRY RTBO YOOStart: 96-65-9797UXJEI OXIMETRY, CONTINUOUSBO YOOStart: 39-55-8209YHUPFPXSU SPIROMETRY RTBO YOOStart: 06-07-2018 INCENTIVE SPIROMETRY RTBO YOOStart: 30-66-4208YVDNSOGG OXYGEN THERAPY PROTOCOLBO YOOStart: 30-34-1909OKABP OXIMETRY, CONTINUOUSBO YOOStart: 18-61-3455UZEAUMOAX PATIENTBO YOOStart: 49-79-7289LF CONSULT TO HOME CARE NEEDSBO YOOStart: 38-21-6163ZXMTQHSAI SPIROMETRY RTBO YOOStart: 05-93-1443Wwbwx count complete auto&auto difrntl wbcBO YOOStart: 00-97-0129Hvpbpwcuepgus metabolic panelBO DESIRAE Start: 78-62-1930WNMHR OXIMETRY, CONTINUOUSBO YOOStart: 77-76-4048UECOWB AND OUTPUTBO YOOStart: 79-63-6038WLLUI OXIMETRY, CONTINUOUSBO YOOStart: 06-07-2018 INCENTIVE SPIROMETRY RTBO YOOStart: 43-84-5610RWZAVBHAJ SPIROMETRY RTBO DESIRAE Start: 93-19-4612RFJYJ OXIMETRY, CONTINUOUSBO YOOStart: 05-03-7467EUBFDEFVY SPIROMETRY RTBO YOOStart: 34-15-5244OYJOFXHZB SPIROMETRY RTBO YOOStart: 04-84-4721KGKHU OXIMETRY, CONTINUOUSBO YOOStart: 27-18-4028HFYPJKAXW SPIROMETRY RTBO YOOStart: 92-90-0534VUVRKRBAT SPIROMETRY RTBO YOOStart: 16-45-0055ZKTTU OXIMETRY, CONTINUOUSBO YOOStart: 81-98-5989THGMVWWJN SPIROMETRY RTBO YOOStart: 03-20-1499CGXECCNQV SPIROMETRY RTBO YOOStart: 32-56-2505XODBIDQV OXYGEN THERAPY PROTOCOLBO YOOStart: 32-36-6597UJGPM OXIMETRY, CONTINUOUSBO YOOStart: 06-06-2018 Radiologic exam chest 2 viewsBO YOOStart: 07-55-3048OMEFNYTHD SPIROMETRY RTBO YOOStart: 29-68-7917Dyrmw metabolic panel calcium totalBO YOOStart: 06-06-2018 Blood count complete auto&auto difrntl wbcBO YOOStart: 12-38-2801NVDTT OXIMETRY, CONTINUOUSBO YOOStart: 29-95-5415FBHBPC AND OUTPUTBO YOOStart: 87-84-1126VISTA OXIMETRY, CONTINUOUSBO YOOStart: 17-93-2763YSAMYRZ COMMUNICATIONBO YOOStart: 50-81-7433FENAMODUA SPIROMETRY RTBO YOOStart: 84-05-6402HKVSZDVCR SPIROMETRY RT SHAKA YOOStart: 13-36-4110WADFQ OXIMETRY, CONTINUOUSBO YOOStart: 06-05-2018 INCENTIVE SPIROMETRY RTBO YOOStart: 21-79-3205SDTDYCDCU SPIROMETRY RTBO DESIRAE Start: 97-22-3086WTLJK OXIMETRY, CONTINUOUSBO YOOStart: 89-27-1448UAETXCPID SPIROMETRY RTBO YOOStart: 41-75-7869RXUSUFQCP SPIROMETRY RTBO YOOStart: 81-51-1564RPSZC OXIMETRY, CONTINUOUSBO YOOStart: 20-83-9426SWJUDSNFV SPIROMETRY RTBO YOOStart: 08-23-6071Ibwvr spine lumbosacral 2/3 viewsBO YOOStart: 09-75-9681KSJIJXKLI SPIROMETRY RTBO YOOStart: 48-47-7968PMTXP OXIMETRY, CONTINUOUSBO YOOStart: 45-17-7914WBNDBNWC OXYGEN THERAPY PROTOCOLBO YOOStart: 86-99-6297KXNJBWMIE SPIROMETRY RTBO YOOStart: 99-78-8704Qngow count complete auto&auto difrntl wbcBO YOOStart: 67-67-5652Htcjcjocigqbz metabolic panelBO DESIRAE Start: 78-18-5427NYXVYNP HEELS OFF OF BEDBO YOOStart: 90-61-0976UTTX OF BED 60 DEGREES OR LESSBO YOOStart: 77-24-0441JUPLHRL COMMUNICATIONBO YOOStart: 00-20-2310CCBZ PATIENTBO YOOStart: 80-55-1078KCRBZ OXIMETRY, CONTINUOUSBO DESIRAE Start: 15-63-0128IDGWVOHY TOLERATEDBO YOOStart: 70-95-0797BDJRVXZV PATIENTBO YOOStart: 84-78-9587QJUKRENG REMOVALBO YOOStart: 98-25-0903NWPJU WEIGHTSBO DESIRAE Start: 41-03-1802AKBUWJ AND OUTPUTBO YOOStart: 36-68-3294ZX EVAL AND TREATBO DESIRAE Start: 49-34-9694PM EVAL AND TREATBO YOOStart: 95-15-7103CLIGY OXIMETRY, CONTINUOUSBO YOOStart: 97-47-3436GYNHXTOTV SPIROMETRY RTBO YOOStart: 06-04-2018 INCENTIVE SPIROMETRY RTBO YOOStart: 52-92-3969OKXBE OXIMETRY, CONTINUOUSBO DESIRAE Start: 37-39-6486TWNJQXDDI SPIROMETRY RTBO YOOStart: 47-19-3081OZMPM INTERMITTENT PNEUMATIC COMPRESSION DEVICEBO YOOStart: 35-14-5175TXTRU OXIMETRY, CONTINUOUSBO YOOStart: 56-77-0705VXMIAPR DIET TOLERATED (NURSING COMMUNICATION)SHAKA YOOStart: 79-08-0097YSBYYBWG INDWELLING CATHETHERBO YOOStart: 11-63-8496CUIMMIX HOBBO YOOStart: 87-29-3253WNGT CODEBO YOOStart: 06-04-2018 INITIATE OXYGEN THERAPY PROTOCOLBO YOOStart: 07-95-9364NYXNZH AND OUTPUTBO DESIRAE Start: 05-49-8000ITXYK/VASCULAR CHECKSBO YOOStart: 26-03-4044MXULGE PHYSICIAN (SPECIFY)SHAKA YOOStart: 65-52-9884DTUJPQS CESSATION EDUCATIONBO YOOStart: 89-22-5119TNYUN SIGNSBO YOOStart: 62-40-9546TQMFQ CAREBO YOOStart: 06-04-2018 DIET GENERALBO YOOStart: 56-90-3152DEDLGYBZR MONITORINGBO YOOStart: 06-04-2018 Blood count complete automatedBO YOOStart: 78-15-5645Koitjnqmsrtry metabolic panelBO YOOStart: 87-51-4977GSHCRZT STATUS (FROM ED OR OR/PROCEDURAL)SHAKA DESIRAE Start: 16-66-5729LWQYMOGL PATIENTBO YOOStart: 70-97-6080HCCGQC FOR SURGICAL PROCEDURESBO YOOStart: 58-33-1416SZHXJGXU PATHOLOGYBO YOOStart: 06-04-2018 SURGICAL PATHOLOGYBO YOOStart: 99-58-0996DPE GLUCOSE FINGERSTICKBO YOOStart: 22-28-2655SADC GLUCOSEBO YOOStart: 66-65-2417Zbmjufg bacterial quanttative colony count urineBO YOOStart: 72-97-7629Kgnyuxatevp urinalysisBO YOOStart: 17-40-8370DJPI AND SCREENBO YOOStart: 49-73-4405Zgb prsmptv pthgnc organism scrn w/colony estimjBO YOOStart: 86-66-2195Ixgus entir thrc lmbr crv sac spi w/skull 2/3 vwBO YOOStart: 58-71-1273Yugfe count complete automatedBO YOOStart: 98-67-5723Lxeoolaxahu timeBO YOOStart: 94-35-6663YHOJP RT REFLEX TO CULTUREBO YOOStart: 16-60-1443Fiymo metabolic panel calcium totalBO YOOStart: 05-23-2018 EKG 12-LEADBO YOOCholecystectomyPatrick [employer] ColonoscopyPatrick [employer] Procedure on backPatrick [employer] TonsillectomyPaMeetup Plan of Treatment DateCare ActivityDetailAuthorStart: 21-47-0517Scgnxpvyy for malignant neoplasm of colonNOMS HealthcareStart: 03-27-2026Medicare Annual Wellness (AWV)Medicare Annual Wellness (AWV)NOMS HealthcareStart: 06-27-2025 End: 23-86-3911Bhnwfah encounter ylyomcdvl72/10/2025 12:00 PM EDT Office Visit [facility] [address] [place] [address] 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, CASSANDRA DEVELOPER [address] [place] [address] [facility] ACOStart: 06-23-2025 End: 43-02-4936Uwjpyrl encounter cjopycrgk04/06/2025 3:30 PM EDT Office Visit [facility] [address] [facility] [address] [place] [id number] Jack Vogt MD [address] [facility] [address] [place] [address] NOMS [facility] MedinceStart: 06-09-2025 End: 89-21-3547Vxqeisomrficn metabolic 2000 panel - Serum or PlasmaComprehensive metabolic panel Lab Routine Chronic kidney disease, stage 4 (severe) (HCC) Expected: 06/09/2025 (Approximate), Expires: 06/09/2026NOMS HealthcareComment on above:Expected: 06/09/2025 (Approximate), Expires: 06/09/2026Start: 06-09-2025 End: 14-86-6068Joeptfljzir peptide B [Mass/volume] in BloodB-type natriuretic peptide Lab Routine Chronic kidney disease, stage 4 (severe) (HCC) Chronic diastolic congestive heart failure (HCC) Expected: 06/09/2025 (Approximate), Expires: 06/09/2026[facility] Work Phone: Comment on above:Expected: 06/09/2025 (Approximate), Expires: 06/09/2026Start: 06-09-2025 End: 59-64-7248RNV W/REFLEX TO FT4TSH W/REFLEX TO FT4 Lab Routine Chronic kidney disease, stage 4 (severe) (HCC) Expected: 06/09/2025(Approximate), Expires: 06/09/2026NONV HealthcareComment on above:Expected: 06/09/2025 (Approximate), Expires: 06/09/2026Start: 06-09-2025 End: 76-82-4066Lcxdcde encounter safkyvnmz05/22/2025 11:15 AM EDT Office Visit NOMBryanna Aguilera [facility] [address] [facility] [address] [place] [address] Jack Vogt MD [address] [facility] [address] [place] [address] ArrivedNOMS [place] Champion MedinceComment on above:ArrivedStart: 05-26-2025 End: 90-63-5994Xlzxcyv encounter ifktfvrbl04/08/2025 3:30 PM EDT Office Visit [facility] [address] [facility] [address] [place] [address] Jack Vogt MD [address] [facility] [address] [place] [address] NOMS CI FMStart: 56-31-1622CWDQU-19 Vaccine ( season)COVID-19 Vaccine ( season)NOMS HealthcareStart: 05-19-2025 Influenza vaccinationNOMS HealthcareStart: 86-63-5996KgadvdaixKing's Daughters Medical Center Ohiotart: 05-94-6328Qoohzxer to rehabilitation physicianKing's Daughters Medical Center Ohiotart: 58-23-4308VaaptnjizKing's Daughters Medical Center Ohiotart: 82-73-3692CshpdwbntKing's Daughters Medical Center Ohiotart: 40-91-1251Pyjvauvg therapy procedureKing's Daughters Medical Center Ohiotart: 84-59-3932Rtyphsum to occupational therapistKing's Daughters Medical Center Ohiotart: 04-08-2025 [facility] Oh[facility]art: 93-03-9574Pqnjrdih to auto painter helper [facility] [place]: [id number] to model maker [facility] [place]: [id number] admissionKing's Daughters Medical Center [place]: 04-02-2025 End: [id number] W Auto Differential panel - BloodCBC and differential Lab Routine Benign essential hypertension Chronic kidney disease, stage 4 (severe) (HCC) Localized edema Expected: 04/02/2025 (Approximate), Expires: 04/02/2026 [facility] Work Phone: Comment on above:Expected: 04/02/2025 (Approximate), Expires: 04/02/2026Start: 04-02-2025 End: 12-74-2080Buesswqookgck metabolic 2000 panel - Serum or PlasmaComprehensive metabolic panel Lab Routine Benign essential hypertension Chronic kidney disease, stage 4 (severe) (HCC) Localized edema Expected: 04/02/2025 (Approximate), Expires: 04/02/2026NONV HealthcareComment on above:Expected: 04/02/2025 (Approximate), Expires: 04/02/2026Start: 04-02-2025 End: [id number], COMPLETE W/REFLEX TO CULTUREURINALYSIS, COMPLETE W/REFLEX TO CULTURE Lab Routine Right flank pain Expected: 04/02/2025 (Approxim ate), Expires: 04/02/2026NONV HealthcareComment on above:Expected: 04/02/2025 (Approximate), Expires: 04/02/2026Start: 05-70-2907Vswlwvdghh A1c measurement Diabetes: Hemoglobin [id number] HealthcareStart: 02-25-2025 End: [id number] Skeletal system Views for bone densityDEXA bone density Imaging Routine Decreased estrogen level Expected: 02/25/2025, Expires: 02/25/2026NONV HealthcareComment on above:Expected: 02/25/2025, Expires: 02/25/2026Start: 02-25-2025 End: 28-31-1973EC Thyroid glandUS thyroid Imaging Routine Thyroid nodule (CMS/HCC) Hair loss Other fatigue Weight loss Expected: 02/25/2025, Expires: 02/25/2026[facility] Work Phone: Comment on above:Expected: 02/25/2025, Expires: 02/25/2026Start: 02-25-2025 End: 34-92-0144Kcwvphc encounter loneqgbqh50/10/2025 11:30 AM EDT Office Visit [facility] [address] [facility] [address] [place] [address] Renetta Moncada NP [address] [place] [address] ArrivedNOMS CI FMComment on above:ArrivedStart: 91-75-0538Axoacaiuj for malignant neoplasm of breastMammogramOREM COMMUNITY HOSPITAL Healthcare Start: 01-02-2025 End: 72-87-3921Tktpvor encounter rlvfqghiv70/17/2025 9:30 AM EDT Office Visit [facility] [address] [place] [address] Jack Vogt MD [address] [place] [address] [facility] FMStart: 12-12-2024 End: 89-00-8132Eokcwxkabxear metabolic 2000 panel - Serum or PlasmaComprehensive metabolic panel Lab Routine Stage 3b chronic kidney disease (HCC) (CMS/HCC) Expected:12/12/2024 (Approximate), Expires: 12/12/2025NOMS HealthcareComment on above:Expected: 12/12/2024 (Approximate), Expires: 12/12/2025Start: 12-12-2024 End: 09-37-6701Zbgit 1996 panel - Serum or PlasmaLipid panel Lab Routine Type 2 diabetes mellitus with diabetic peripheral angiopathy without gangrene (CMS/HCC) Expected: 12/12/2024 (Approximate), Expires: 12/12/2025NOMS HealthcareComment on above:Expected: 12/12/2024 (Approximate), Expires: 12/12/2025Start: 03-27-2025Medicare Annual Wellness (AWV)Medicare Annual Wellness (AWV)[facility] HealthcareStart: 12-12-2024 End: 05-76-0532Horkdemaqug [Units/volume] in Serum or PlasmaTSH Lab Routine Localized edema Expected: 12/12/2024 (Approximate), Expires: 12/12/2025[facility] Work Phone: Comment on above:Expected: 12/12/2024 (Approximate), Expires: 12/12/2025Start: 12-12-2024 End: 81-23-5996Zyuhdlizc (T4) free [Mass/volume] in Serum or PlasmaT4, free Lab Routine Localized edema Expected: 12/12/2024 (Approximate), Expires: 12/12/2025 [facility] HealthcareComment on above:Expected: 12/12/2024 (Approximate), Expires: 12/12/2025Start: 12-12-2024 End: 95-86-0502Sovinmkvdbepdtei (T3) Free [Mass/volume] in Serum or PlasmaT3, free Lab Routine Localized edema Expected: 12/12/2024 (Approximate), Expires: 12/12/2025NONV HealthcareComment on above:Expected: 12/12/2024 (Approximate), Expires: 12/12/2025Start: 86-85-4133Spvbk screening for proteinDiabetes: Urine Protein ScreeningNONV HealthcareStart: 12-12-2024 End: 01-52-7844Pwgpdrf encounter cimcheipv68/27/2025 11:30 AM EDT Office Visit [facility] [address] [facility] [address] [place] [address] Jack Vogt MD [address] [facility] [address] [place] [address] [facility] FMStart: 88-71-6335Sdflcgti screeningDiabetes: Retinopathy ScreeningOREM COMMUNITY HOSPITAL HealthcareStart: 37-00-4874Owuinxqzpn A1c measurement Diabetes: Hemoglobin U0QVIVF HealthcareStart: 77-91-4807Kbgirocie vaccination Influenza Vaccine (#1)[facility] HealthcareStart: 20-92-6332PWsZ/Tdap/Td Vaccines (1 - Tdap)DTaP/Tdap/Td Vaccines (1 - Tdap)[facility] HealthcareStart: 57-96-4081Pqjzdtvfk for malignant neoplasm of colonOREM COMMUNITY HOSPITAL HealthcareAlbumin/Globulin ratioCleveland Clinic Children'S Hospital For RehabilitationAnion gap measurementCleveland Clinic [facility] aPTT in Platelet poor plasma by Coagulation assayCleveland Clinic Children'S Hospital For RehabilitationBasophils [#/volume] in Blood by Automated countCleveland Clinic Children'S Hospital For RehabilitationBasophils/100 leukocytes in Blood by Automated countCleveland Clinic Children'S Hospital For RehabilitationCBC W Auto Differential panel - BloodCBC and differential Lab Routine Stage 3b chronic kidney disease (HCC) (CMS/HCC) Ordered: 12/12/2024[facility] HealthcareComment on above:Ordered: 12/12/2024BC W Auto Differential panel - BloodCBC and differential Lab Routine Chronic kidney disease, stage 4 (severe) (HCC) Ordered: 06/09/2025[facility] HealthcareComment on above:Ordered: 06/09/2025 Eosinophils/100 leukocytes in Blood by Automated countCleveland Clinic Children'S Hospital For RehabilitationErythrocyte distribution width [Ratio] by Automated countCleveland Clinic Children'S Hospital For RehabilitationErythrocytes [#/volume] in [facility] Medical CenterGlobulin [Mass/volume] in SerumCleveland Clinic Children'S Hospital For Rehabilitation Hematocrit [Volume Fraction] of [facility] County Medical CenterHemoglobin [Mass/volume] in [facility] Medical CenterImmunofixation for Urine [facility] Hospital For RehabilitationINR in Platelet poor plasma by Coagulation assayCleveland Clinic Children'S Hospital For RehabilitationLeukocytes [#/volume] corrected for nucleated erythrocytes in Blood by Automated counCleveland Clinic Children'S Hospital For RehabilitationLeukocytes [#/volume] in [facility] Medical CenterLymphocytes [#/volume] in Blood by Automated countCleveland Clinic Children'S Hospital For Rehabilitation Lymphocytes/100 leukocytes in Blood by Automated countCleveland Clinic Children'S Hospital For RehabilitationMCH [Entitic mass] by Automated [facility] MCHC [Mass/volume] by Automated [facility] HospitalMCV [Entitic volume] by Automated [facility] HospitalMonocytes [#/volume] in Blood by Automated [facility] Monocytes/100 leukocytes in Blood by Automated [facility] HospitalNeutrophils [#/volume] in Blood by Automated [facility] HospitalNeutrophils/100 leukocytes in Blood by Automated [facility] HospitalNucleated erythrocytes [Presence] in Blood by Automated [facility] HospitalPatient EducationHope PamphletCleveland Clinic [facility] Work Phone: Patient referralCleveland Clinic [facility] Work Phone: Platelet mean volume [Entitic volume] in Blood by Automated [facility] HospitalPlatelets [#/volume] in Blood [facility] For RehabilitationProthrombin time (PT)[facility] For RehabilitationRenal function 1999 panel - Serum or PlasmaCleveland Clinic Children'S Hospital For RehabilitationRenal function 1999 panel - Serum or PlasmaC[facility] Clinic [facility] Immunizations Immunization DateImmunizationNotesCare HbevrcpaHahczyfa37-59-8850jftqpfuhd virus vaccine, unspecified formulationEntreMed [facility]10-17-2022Influenza, Seasonal, Quadrivalent, AdjuvantedGeneric Provider [facility] Zgvrnutbem01-63-9627Vbomkln Bivalent Booster VaccinationGeneric Provider [facility] Zkzgnpsfys87-05-7257TGUU-WwP-7 (COVID-19) mRNAMUL.ORD!f67039Hinwvwu WATERS [facility]10-07-2021influenza virus vaccine, unspecified formulationEntreMed [facility]10-07-2021Influenza, High-dose Seasonal, Quadrivalent, Preservative Free Generic ProviderNOMS Lvbmrdhzpw88-52-9353CCSX-YqH-0 (COVID-19) mRNA BNT-162b2 brandyPharmlyrosita [employer] [facility] on above:Result Comment: 2022-09-26: TXN2780-86-8924UTOO-BjS-9 (COVID-19) mRNA BNT-162b2 brandyReqSpot.com [facility] on above:Result Comment: 2022-09-26: AHY5611-83-5261NTMJ-StB-6 (COVID-19) mRNA BNT-162b2 Zazoo [facility] on above:Result Comment: 2022-09-26: LMY9372-89-0342cynliplqs virus vaccine, unspecified formulationEntreMed [facility]10-21-2020Influenza, Seasonal, Quadrivalent, AdjuvantedGeneric Provider [facility] HospitalKaizisbkez77-46-3045Asdstciu Monkeypox, Live Attenuated, Preservative Free Generic ProviderSelect Specialty HospitalGmdfpoggqb06-89-0694laacxsdfvznm polysaccharide vaccine, 23 valentGeneric ProviderSelect Specialty Hospital Payers DatePayer CategoryPayerPolicy [id number] 2023Medicare (Managed Care) [id number] [id number] [id number] 1960Private Health [id number] 2.16.840.1.526424.3.57[id number] 2.16.840.1.345713.3.579.2.61042-81-4321Wrcozks6004138 2.16.840.1.393285.3.579.[id number] 2.16.840.1.584300.3.579.2.70865-61-4128Vkyqbgm8394100 2.16.840.1.936886.3.579.2.94491-75-4058Ioczuoy5966756 2.840.1.173233.3.579.2.95950-04-5151Xemrwbu0765930 2.840.1.116209.3.579.2.54120-48-6654Fibyuop5896503 2.16.840.1.393821.3.579.2.51736-27-2705Cviapyf2495215 2..840.1.782207.3.579.2.94833-55-3464Hkppiob0384479 2..840.1.081410.3.579.2.44740-04-2401Pvxtbgk16333433 2.840.1.523643.3.579.2.60685-35-4776Egphgkc73921484 2.840.1.276973.3.579.2.65039-38-2319Jmvadsv57723681 2.16840.1.910036.3.579.2.47033-64-9815Apkfeyi22161063 2.840.1.499459.3.579.2.02463-16-9713Dbturzv80151399 2.16840.1.299690.3.579.2.15208-02-7462Kxddezc23306772 2..0.1.820719.3.579.2.495205-43-6802Tfvxxal53490332 2..0.1.961721.3.579.2.388957-13-9321Apamclp76007509 2..0.1.717059.3.579.2.238281-16-8667Bemhbnx1778026 2.0.1.167613.3.579.2.058291-18-8321Fhikpsd6370893 2.0.1.205984.3.57[id number] Health [id number] [id number]-yv67-[id number] 4m97503u-c52g-2923-34w2-[id number] 2..1.699742.3.579.2.531 Social History DateTypeDetailFacilityStart: 03-25-2021 End: 96-23-3903Sesagpd smoking status NHISEx-smoker (finding)[facility] Ohiotart: 03-20-2024 End: 20-21-4050Zuahbay of tobacco useSt. Mary'S Medical Center Work Phone: Start: 62-55-3605Dey Assigned At BirthAshtabula County Medical Centertart: 88-46-5363Dnweehj smoking statusNeverExecutive [facility] of [facility] BellGenesis Hospitaltart: 83-20-2134Gpbpnnx smoking status NHISNever smoked tobaccoNOMS HealthcareStart: 05-09-2023 End: 96-08-2799Jzyzlos use and exposureSmokeless tobacco non-userNOMS Healthcare Start: 03-20-2024 End: 97-47-8858Reeqjwbcz beverage intakeNot AskedNOMS HealthcareStart: 03-20-2024 End: 48-97-7474Jascfsy of Social functionNOMS HealthcareStart: 09-91-6988Rosvtad Commentcaffeine yes type:coffeeNOMS HealthcareStart: 67-79-1818Qfh assigned at birthNot on fileNOMS HealthcareStart: 68-53-5303Hzsojgn smoking status NHIS Current some day smokerKing's Daughters Medical Center OhioexFemale (finding) [facility] Ohiotart: 04-09-2025 End: 96-31-8105UJLK Follow upSDOH Follow upSt. Mary'S Medical Center Work Phone: History of tobacco useCurrent smokerOREM COMMUNITY HOSPITAL Healthcare History of tobacco useCigarette SmokerNONV HealthcareNEGATED: Highlighted row [facility] Goals DatePatient GoalDesired Activity/StatePersonal health goal Functional Status SkyyNdkclvgseiEhkwdiQkgsykou41-07-9045Bqvhkye Health Questionnaire 2 item (PHQ- 2) [Reported][facility] HospitalZtckzqvdbr50-49-4690QRO-0 quick depression assessment panel [Reported.PHQ][facility]ty HospitalHopnyyjozi09-65-4068Nigfziw Health Questionnaire 2 item (PHQ- 2) [Reported][facility] HospitalDgmhcivvgx82-26-9484Oeejncvbzq StatusN/AExecutive [facility]rology of St[facility]07-02-2024Functional StatusN/AExec[facility]03-27-2024Patient Health Questionnaire 2 item (PHQ-2) [Reported][facility] HospitalTghliiiudf64-82-9056Jydeoraefx StatusN/AExec[facility] of [facility]01-09-2023 Functional StatusN/AExec[facility] of [facility] 04-93-7552Mxxqurlflr StatusN/AExec[facility] Clinical Notes 03-04-2022 to 06-27-2025 Note Date & XhcwAnwvWtseyfzw51-92-1154 History of Present illness Narrative* Ana Rosa [...] being seen for a f2f for initiation [facility] centerBl[facility]. Patient reports that she had not seen nephrology since prior to her 03/2025 hospitalization, but hasan appt with them on 07/15/25. She also has a cardiology visit scheduled for 07/04/25. She admits that she has not been checking her blood pressure. She does have family check in on her frequently and her fgdndeac-pk-dzr is filling her pill boxes for her. [...] sister has brought her some foods from [employer] such as soup, banana bread, quiche, and fruit. Most of her in home meal prep is limited to warming meals up, ormaking simple things such as scrambled eggs, andorran toast, etc. Pt has lost considerable weight [...] would be sent. Also discussed referral to vice president sales. She states she will wait until after her nephrology appt. 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 Denies any recent falls. Primary activity is sitting on the couch, however, she does have a foot pedal rehab nurse she says she uses once/day. She also [...] bilateral femoral stent FEMORAL ARTERY STENT Bilateral [place] REMOVE TONSILS/ADENOIDS,12+ Y/O SPINE SURGERY fusion of [...] up scheduled for 07/04/25 3. Atherosclerosis of [place] coronary artery of [place] heart with stable angina pectoris This is [...] confined to the home and needs intermittent senior care care physical therapy occupational therapy. I have initiated the establishment of the plan of care. The patient will be followed by a physician, Dr. Vogt, who will periodically review the plan of care. The findings from this grdp-cd-prmn encounter have been communicated with the patient's [...] or fail to improve. documented in this encounterSelect Specialty HospitalEcnnjdqhvn03-31-6281 Telephone encounter Note* Telephone Encounter - Ana [...] should be the talking to pt re: [facility] HospitalQytvoklylq1949 Telephone encounter Note* Telephone Encounter - 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 NP - 06/27/2025 9:35 AM EDT VM received: Good morning. My name is Fabby Meyers, I am calling on behalf of my mother in law who I believe has an appointment scheduled today at noon, her name is Marleni Dennis and date of 1950, her phone number is [phone] last [phone] We were unaware that I believe probably [...] me. At the earliest convenience, it is [phone]. My name is Fabby, I am to her son, Tarun. I mean, you can also call Marleni to confirm this. Information, if you like. I gave the phone number for her as well, thank you. [facility] HospitalEmlnoneudq66-10-9004 Miscellaneous Notes* Telephone Encounter - 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 NP - 06/27/2025 9:35 AM EDT Call returned. Explained that itoluis angel's visit would be a home visit for [...] date of 1950, her phone number is [phone] last [phone] We were unaware that I believe probably [...] me. At the earliest convenience, it is [phone]. My name is Fabby, I am to her son, Tarun. I mean, you can also call Marleni to confirm this. Information, if you like. I gave the phone number for her as well, thank you. documented in this encounterNOSac-Osage HospitalTxwxhxpywz18-16-0504 History of Present illness Narrative* Jack Vogt [...] bilateral femoral stent FEMORAL ARTERY STENT Bilateral [place] REMOVE TONSILS/ADENOIDS,12+ Y/O SPINE SURGERY fusion of [...] 0.55 - 1.02 mg/dL Final TBH EGFR-AF ZAMBIAN 06/09/2025 14 (L) >=60 mL/min/1.73m 2 Final TBH EGFR-NON AF ZAMBIAN 06/09/2025 12 (L) >=60 mL/min/1.73m 2 Final [...] <=1,800.0 pg/mL Final RESULTS CALLED TO CARO AOLNZO MA TSH 06/09/2025 4.130 (H) 0.358 - [...] Greater than 45 minutes was spent in caof-zx-hqyi consultation and coordination of care. Follow up in about 2 weeks (around 06/23/2025). documented in this encounterSelect Specialty HospitalVbbqbhatsd06-12-9174 History and physical note Author Rajiv Trejo [facility] For RehabilitationNote Date/TimeJuly 2024 11:50pm[place] [address] Hospitalist H&P Signed Patient: Marleni Dennis MR#: [id number] : 1950 Acct:[id number] Age/Sex: 74 / F Adm Date: 5 Loc: Room: [address] [place] [address] Type: ADM IN Attending Dr: Rajiv Trejo [...] anemia. Patient follows with [place] and was referred to nephrology clinic for [...] negative unless noted below or in HPI [facility] Medical History Iron deficiency anemia Former [...] (From Pneumovax-23) Allergy (Verified 04/08/25 18:01) Edema Bvvfnkh-ZUF-WiX Reductase Inhibitor (Illjbdb-Adk-Kqb Reductase Inhibitor) Allergy (Verified 04/08/25 18:01) Unknown [...] % (Auto) 23.3 % (.) 04/08/25 18:54 [place] % (Auto) 10.0 % (.) 04/08/25 18:54 Eos % (Auto) 2.6 % (.) 04/08/25 18:54 Baso % (Auto) 1.0 % (.) 04/08/25 18:54 Nucleat RBC Rel Count 0.1 /100 WBC (0-0.5) 04/08/25 18:54 Neut # (Auto) 2.8 x10E3/uL (1.8-7.7) 04/08/25 18:54 Lymph # (Auto) 1.0 x10E3/uL (1.00-4.8) 04/08/25 18:54 [place] # (Auto) 0.4 x10E3/uL (0.0-0.8) 04/08/25 18:54 [...] pH 6.5 (5.0-9.0) 04/08/25 19:50 Ur Specific Nesbit 1.006 (1.001-1.030) 04/08/25 19:50 Urine Protein 50 [...] <Electronically signed by Rajiv Trejo MD> 04/08/[address] [facility] Work Phone: 1(918) 389-345307-22-2025 [place] [address] Hospitalist H&P Signed Patient: Marleni Dennis MR#: [id number] : 1950 Acct:[id number] Age/Sex: 74 / F Adm Date: 5 Loc: Room: [address] [place] [address] Type: ADM IN Attending Dr: Rajiv Trejo [...] anemia. Patient follows with her PCP in [place] and was referred to nephrology clinic for [...] negative unless noted below or in HPI [facility] Medical History Iron deficiency anemia Former [...] (From Pneumovax-23) Allergy (Verified 04/08/25 18:01) Edema Qcnbugf-EYP-McA Reductase Inhibitor (Zrirmve-Lbu-Zhb Reductase Inhibitor) Allergy (Verified 04/08/25 18:01) Unknown [...] % (Auto) 23.3 % (.) 04/08/25 18:54 [place] % (Auto) 10.0 % (.) 04/08/25 18:54 Eos % (Auto) 2.6 % (.) 04/08/25 18:54 Baso % (Auto) 1.0 % (.) 04/08/25 18:54 Nucleat RBC Rel Count 0.1 /100 WBC (0-0.5) 04/08/25 18:54 Neut # (Auto) 2.8 x10E3/uL (1.8-7.7) 04/08/25 18:54 Lymph # (Auto) 1.0 x10E3/uL (1.00-4.8) 04/08/25 18:54 [place] # (Auto) 0.4 x10E3/uL (0.0-0.8) 04/08/25 18:54 [...] pH 6.5 (5.0-9.0) 04/08/25 19:50 Ur Specific Nesbit 1.006 (1.001-1.030) 04/08/25 19:50 Urine Protein 50 [...] Trejo MD 04/08/2509 11 Signed By: 04/08/25 4631 [facility]07-22-2025 Radiology Diagnostic study note [facility] Main [place] [address] [place] [address] CT Scan Report Signed Patient: Marleni Dennis MR#: [id number] : 1950 Acct:[id number] Age/Sex: 74 / F ADM Date: 5 Loc: ER Room: Type: [facility] ER Attending Dr: Copies to: Sohail [...] Garnett M.D. 04/08/2025 8:27 PM Dictation Location: [facility] Transcribed By: [facility] 04/08/252026 Dictated By: Derek Garnett DO 04/08/252018 Signed By: 04/08/252026 [facility]07-22-2025 Evaluation note* Diagnosis Onset Date Resolution Status Admit Date TOMASA (acute kidney injury) acuteJuly 2024 3:58pmAnemiaacuteJuly 2024 3:58pmChronic kidney disease, stage IV (severe)acuteJuly 2024 3:58pmHypertensive nephropathy acuteJuly 2024 3:58pmProteinuriaacuteJuly 2024 3:58pmAcute kidney injury superimposed on CKDacuteJuly 2024 9:16pmAnemiaacuteJuly 2024 9:16pmFluid overloadacuteJuly 2024 9:16pmHypertensive emergencyacuteJuly 2024 9:16pmHypertensive nephropathyacuteJuly 2024 9:16pmLower GI bleedacuteJuly 2024 9:16pmMelenaacuteJuly 2024 9:16pm [facility] Work Phone: 1(694) 167-838007-22-2025 Evaluation note* Diagnosis Onset Date Resolution Status [...] 2024 9:16pmProteinuriaacuteJuly 2024 9:16pmWeakness generalizedacuteJuly 2024 9:16pm [facility] Work Phone: 1(372) 267-962207-18-2025 NoteSUBJECTIVE Reason for Visit: Marleni Dennis is [...] to [facility] ([facility]ially presented to [facility]) for hypertension emergency. Systolics were as high as 250, lab work revealed elevated troponin without immediate concern for extreme changes on EKG. CT head was negative for acute process. Placed on Cardene drip initially. Nephrology was also consulted due to the patient's worsening TOMASA. 04/04/2025 office visit: Patient seen evaluated in the office today, accompanied by her gqqffata-be-spa. She denies chest pain, shortness of breath, palpitations. She endorses worsening lower extremity edema. On exam she has +3 LE edema. States she has an appointment on Monday with her model maker to decide on dialysis. 04/24/2024 office visit [...] elevated resistive index withi (more content not included)...[facility] 04-02-2025 History of Present illness Narrative* 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, CASSANDRA DEVELOPER - 04/02/2025 2:00 PM EDT Images from [...] nephrology was sent to Dr. Espinosa in [place] during her hospital follow up visit on [...] up scheduled with Dr Espinosa 04/08 in [place] [address]. She is working on obtaining transportation with [...] bilateral femoral stent FEMORAL ARTERY STENT Bilateral [place] REMOVE TONSILS/ADENOIDS,12+ Y/O SPINE SURGERY fusion of [...] 2. Chronic kidney disease, stage 4 (severe) (HCC) Follow up with nephrology 04/08 Admits to [...] for Next scheduled follow-up. documented in this [facility]07-08-2025 Telephone encounter Note* Telephone Encounter - GISSELLE Sigala - 03/25/2025 2:15 PM EDT Rx for ambien was sent yesterday. [facility] HospitalNzqefrdiww53-07-1219 Miscellaneous Notes* Telephone Encounter - GISSELLE Sigala - 03/25/2025 2:15 PM EDT Rx for ambien was sent yesterday. documented in this [facility]07-07-2025 History of Present illness Narrative* Jack Vogt MD - 03/24/2025 4:30 PM EDT Images from the original note were not included. HPI Follow-up Additional comments: Transferred to [facility] from [facility] 03/13/25 dx: HTN urgency,NSTEMI discharged home03/20/25 med changes made follow up with cardiology 04/02/25 and nephrology 05/06/25 discuss referral Additional comments: Pt would like a referral sent to nephrology in [place] she does not want to go to [place] Last edited by Summer Feliciano LPN on 03/24/2025 4:51 PM. Subjective Patient ID: Marleni Dennis is a 74 y.o. female who presents for Follow-up ([facility]25 dx: HTN urgency,NSTEMI discharged home03/20/25 med changes made follow up with cardiology04/02/25 and nephrology 05/06/25) and discuss referral (Pt would like a referral sent to nephrology in [place] she does not want to go to [place]). Flowsheet Row Documentation from 03/24/2025 in [facility] with Aimee Go MA Hospital Information ED, Hospital or Long-Term Facility Discharge? 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 All available hospital records were reviewed and discussed with the patient. Hospital discharge meds were reviewed. Any changes are as noted. Type 2 diabetes mellitus with stage 4 chronic kidney disease, without long-term current use of insulin ([facility]) - Ambulatory referral to Nephrology; Future Insomnia due to medical condition - zolpidem (Ambien) 5 MG tablet; Take 1 tablet (5 mg) by mouth as needed at bedtime for sleep Chronic kidney disease, stage 4 (severe) ([facility]) Primary osteoarthritis of both knees - traMADol (Ultram) 50 MG tablet; Take 1 tablet (50 mg) by mouth every 8 (eight) hours if needed for severe pain - PT home eval; Future Follow up in about 2 months (around 05/25/2025) for Routine F/U. documented in this encounterSelect Specialty [id number] NotePhysical Therapy Name: Marleni Dennis Date of : 1950 Today's Date: 03/20/25 Pt is unable to be seen for therapy at this time secondary to pt to discharge to home soon. Will check back and complete therapy session as appropriate if discharge does not occur.. Check No Charge Time attempted: 1605[facility] NoteNephrology Progress Note Patient : Marleni Dennis; 74 y.o. Location: [facility]8/4108-01 Attending: Erickson Cabrera MD Admit Date: 03/13/2025 Hospital Day: 7 Reason for Consult: CKD IV with uncontrolled hypertension. Subjective: History of present illness: Marleni Dennis is a 74 y.o. female who was transferred from [facility] after presenting with weakness after a fall as well as uncontrolled hypertension. She has pertinent past medical history of hypertension secondary to renal artery stenosis, CKD IV, CAD s/p CABG and PCI with stent placement, obstructive sleep apnea. She presented to [facility] after a fall after showering as she [...] does not regularly follow up with a model maker. She says she has a water pill [...] Dose Status apixaban (Eliquis) 2.5 mg tablet [id number] TAKE 1 TABLET BY MOUTH TWICE A DAY FOR 90 DAYS Historical MD Soham Active aspirin 81 mg EC tablet [id number] Take 1 tablet every day by oral route. Kimberly Rousseau MD Flag for Review buPROPion (Wellbutrin) 75 mg tablet [id number] Yes Take 75 mg by mouth twice a day. Kimberly Rousseau MD Active carvedilol (Coreg) 12.5 mg tablet [id number] No Take 25 mg by mouth with breakfast and with evening meal. Patient not taking: Reported on 03/13/2025 Kimberly Rousseau MD Not Taking Active DULoxetine (Cymbalta) [address] capsule [id number] Take 30 mg by mouth every other day. Weaning off of duloxetine (takes 60 mg daily AND 30 mg every other day_) Kimberly Rousseau MD Active DULoxetine (Cymbalta) [address] capsule [id number] Take 1 tablet by mouth in the morning. Weaning off of duloxetine (takes 60 mg daily AND 30 mg every other day_) Historical Provider, Active ezetimibe (Zetia) 10 mg tablet [id number] Take 1 tablet by mouth in the morning. Historical Provider, Active fenofibrate (Tricor) 145 mg tablet 1703 (more content not included)...[facility]07-03-2025 NotePt has DC orders. Sent updates to [facility]. Will send AVS when available. Updated MD and pt's RN Shanique. Sent AVS/DC orders to [facility]. They will be able to arrange start of care on Saturday 03/24. Updated pt.[facility]07-03-2025 Note Hospital Medicine Discharge Summary Final Discharge Diagnosis: Principal Problem: Hypertensive emergency Active Problems: Coronary artery disease without angina pectoris Uncontrolled hypertension Occlusion of carotid artery Depression Type 2 diabetes mellitus with other diabetic kidney complication ([facility]) Tobacco dependence Stage 4 chronic kidney disease ([facility]) Acute kidney injury superimposed on chronic kidney disease NSTEMI (non-ST elevated myocardial infarction) ([facility]) Abdominal bruit Other abnormalities of gait and mobility Severe protein-calorie malnutrition ([facility]) History of DVT (deep vein thrombosis) CAD s/p CABG Admission Diagnosis: HTN (hypertension) with goal to be determined [I10] Hospital course: 74-year-old female with the above history was admitted to [facility] on 03/13 due to hypertensive emergency. patient initially presented to [facility] after a fall and was [...] Center 04/02/2025 3:00 PM John Luther CNP H[facility] CARD [facility] 05/06/2025 8:30 AM Aydee Chao MD [facility] NEPHRO Comprehensiv 05/06/2025 8:45 AM Aydee Chao MD [facility] NEPHRO Comprehensiv Your medication list [...] pneumovax-23 [pneumococcal 23-cruz ps vaccine], red dye, sfkrhnb-onn-dro reductase inhibitors, and varenicline. Disposition: Home-Health Care [facility] () Discharge Condition: Stable Code [...] fat with locations identified (more content not included)...[facility]07-03-2025 NoteThis report has been cancelled.[facility]07-02-2025 Note-TOMASA on CKD during admission, likely ATN -Cr upward trend, if improved tomorrow then discharge -Daily BMP -Defer fluids to Nephrology - Spoke with nephrology today and agree with doing urinalysis to consider alternative etiologies for the patient's renal dysfunctionUnAshtabula General Hospital07-02-2025 NotePhysical Therapy Physical Therapy Treatment Patient [...] II Activity Tolerance Comments Pt reports dizziness prison through ambulation limiting distances and activity tolerance. [...] at end of session. PT Assessment PT Assessment/LABORER PIPELINES Summary Pt continues to improve, however, limited by dizziness prison throughout ambulation distance this date. Pt also [...] will perform sit to (more content not included)...[facility]07-02-2025 NoteNephrology Progress Note Patient : Marleni Dennis; 74 y.o. Location: 4108/4108-01 Attending: Erickson Cabrera MD Admit Date: 03/13/2025 Hospital Day: 6 Reason for Consult: CKD IV with uncontrolled hypertension. Subjective: History of present illness: Marleni Dennis is a 74 y.o. female who was transferred from [facility] after presenting with weakness after a fall as well as uncontrolled hypertension. She has pertinent past medical history of hypertension secondary to renal artery stenosis, CKD IV, CAD s/p CABG and PCI with stent placement, obstructive sleep apnea. She presented to [facility] after a fall after showering as she [...] does not regularly follow up with a model maker. She says she has a water pill [...] Dose Status apixaban (Eliquis) 2.5 mg tablet [id number] TAKE 1 TABLET BY MOUTH TWICE A DAY FOR 90 DAYS Historical ProviderMD Active aspirin 81 mg EC tablet [id number] Take 1 tablet every day by oral route. Historical MD Soham Flag for Review buPROPion (Wellbutrin) 75 mg tablet [id number] Yes Take 75 mg by mouth twice a day. Historical ProviderMD Active carvedilol (Coreg) 12.5 mg tablet [id number] No Take 25 mg by mouth with breakfast and with evening meal. Patient not taking: Reported on 03/13/2025 Historical MD Soham Not Taking Active DULoxetine (Cymbalta) [address] capsule [id number] Take 30 mg by mouth every other day. Weaning off of duloxetine (takes 60 mg daily AND 30 mg every other day_) Historical MD Soham Active DULoxetine (Cymbalta) [address] capsule [id number] Take 1 tablet by mouth in the morning. Weaning off of duloxetine (takes 60 mg daily AND 30 mg every other day_) Historical Provider, Active ezetimibe (Zetia) 10 mg tablet [id number] Take 1 tablet by mouth in the morning. Historical Provider, Active fenofibrate (Tricor) 145 mg tablet [id number] Take 1 tablet by mouth in the morning. Historical Provider, Active furosemide (Lasix) 40 mg tablet [id number] No if needed. (more content not included)...[facility]07-02-2025 Note-RD following, see belowUnAshtabula General Hospital07-02-2025 Note-MCS SSIUnAshtabula General Hospital07-02-2025 Note-PT/OT following -Plan for HHC dispoUnAshtabula General Hospital07-02-2025 Note-NRT -Advised on cessationUnAshtabula General Hospital07-02-2025 Note-Continue LexaproUnAshtabula General Hospital07-02-2025 Note-Continue Zetia, fenofibrate, aspirinUnAshtabula General Hospital07-02-2025 Note-likely 2/2 medication non-adherence -US renal negative for stenosis -aldosterone, renin wnl -Required intermittent cardene -BP management per Nephrology, appreciate recsUniversity of [facility]07-02-2025 Note-would benefit repeating duplex scan of the abdomen as an outpatientUnAshtabula General Hospital07-02-2025 Note-Prior episodes of DVT, on Eliquis. Physical exam showed evidence of LLE swelling. -b/l LE doppler negative for DVTUnAshtabula General Hospital07-02-2025 Note-Continue Zetia, aspirin -ultrasound showing <50% stenosis R ICA, 50-69% stenosis L ICA -Will need outpatient surveillanceUnAshtabula General Hospital07-02-2025 NoteHospital Medicine Daily Progress Note - 03/19/2025 8:02 AM; Room: [address] [place] [address]- Admission: 03/13/2025 1:02 AM; Length of stay: 6 days THE HOSPITALIST TEAM PREFERS TO USE Narrative FOR NON-URGENT COMMUNICATION 7AM-7PM. IF I DO NOT RESPOND WITHIN 20 MINUTES OR URGENT MATTERS, PLEASE CALL THROUGH THE HUMAN DEVELOPMENT PROFESSOR. FROM 7PM-7AM, PLEASE PAGE [phone](COVR). Code Status: Full Code Barriers to Discharge: [...] Hypertensive emergency NSTEMI (non-ST elevated myocardial infarction) ([facility]) Acute kidney injury superimposed on chronic kidney disease -likely 2/2 medication non-adherence - renal negative for stenosis -aldosterone, renin wnl -Required intermittent cardene -BP management per Nephrology, appreciate recs Stage 4 chronic kidney disease ([facility]) -TOMASA on CKD during admission, likely ATN [...] diabetes mellitus with other diabetic kidney complication ([facility]) -[facility] Tobacco dependence -NRT -Advised on cessation Other abnormalities of gait and mobility -PT/OT following -Plan for [facility] dispo Severe protein-calorie malnutrition (CMS/HCC) [...] Academy of Nutrition and Dietetics and the [place] [employer] of Enteral and Parenteral Nutrition, meets [...] Results from last 7 (more content not included)...[facility]07-01-2025 NotePhysical Therapy Physical Therapy Treatment Patient [...] Clicks T-Score: 20 Assessment/Plan PT Assessment PT Assessment/LABORER PIPELINES Summary: pt amb 115ft RW with SBAof [...] (from Physical Therapy) Active Problems [facility]: 03/13/25 Goal Start Date Expected End Date End Date Patient will perform bed mobility from flat bed independently without use of bed rails. 03/13/25 04/12/25 -- Goal Star (more content not included)...[facility] 03-18-[address] [facility] office, they will accept. Updated pt. Anticipate Dc tomorrow per hospitalist note.[facility] 03-18-2025 NoteNephrology Progress Note Patient : Marleni Dennis; 74 y.o. Location: [address] [place] [address] Attending: Erickson Cabrera MD Admit Date: 03/13/2025 Hospital Day: 5 Reason for Consult: CKD IV with uncontrolled hypertension. Subjective: History of present illness: Marleni Dennis is a 74 y.o. female who was transferred from [facility] after presenting with weakness after a fall as well as uncontrolled hypertension. She has pertinent past medical history of hypertension secondary to renal artery stenosis, CKD IV, CAD s/p CABG and PCI with stent placement, obstructive sleep apnea. She [facility] a fall after showering as [...] does not regularly follow up with a model maker. She says she has a water pill [...] Dose Status apixaban (Eliquis) 2.5 mg tablet [id number] TAKE 1 TABLET BY MOUTH TWICE A DAY FOR 90 DAYS Historical ProviderMD Active aspirin 81 mg EC tablet [id number] Take 1 tablet every day by oral route. Historical ProviderMD Flag for Review buPROPion (Wellbutrin) 75 mg tablet [id number] Yes Take 75 mg by mouth twice a day. Historical ProviderMD Active carvedilol (Coreg) 12.5 mg tablet [id number] No Take 25 mg by mouth with breakfast and with evening meal. Patient not taking: Reported on 03/13/2025 Historical ProviderMD Not Taking Active DULoxetine (Cymbalta) [address] capsule [id number] Take 30 mg by mouth every other day. Weaning off of duloxetine (takes 60 mg daily AND 30 mg every other day_) Historical ProviderMD Active DULoxetine (Cymbalta) [address] capsule [id number] Take 1 tablet by mouth in the morning. Weaning off of duloxetine (takes 60 mg daily AND 30 mg every other day_) Historical ProviderMD Active ezetimibe (Zetia) 10 mg tablet [id number] Take 1 tablet by mouth in the morning. Historical ProviderMD Active fenofibrate (Tricor) 145 mg tablet 67105 (more content not included)... [facility]07-01-2025 NotePhysician Clarification Please review the following and provide your response below. Please specify the type of NSTEMI: --NSTEMI --MA Type 2, please document underlying cause --NSTEMI Ruled out --Demand ischemia (no NSTEMI) --Elevated troponins without NSTEMI --Other specified --Clinically unable to determine Additional Notes: Demand ischemia (no NSTEMI) This documentation will become part of the patient's medical record.[facility]07-01-2025 Note-TOMASA on CKD during admission, likely ATN -Cr upward trend, if improved tomorrow then discharge -Daily BMP -Defer fluids to NephrologyUnAshtabula General Hospital07-01-2025 Note- Continue LexaproUnAshtabula General Hospital07-01-2025 Note-PT/OT following -Plan for HHC dispoUnAshtabula General Hospital07-01-2025 Note-would benefit repeating duplex scan of the abdomen as an outpatientUnAshtabula General Hospital07-01-2025 Note-NRT -Advised on cessationUnAshtabula General Hospital07-01-2025 Note-RD following, see belowUnAshtabula General Hospital07-01-2025 Note-MCS SSI [facility]07-01-2025 Note-likely 2/2 medication non-adherence -US renal negative for stenosis -aldosterone, renin wnl -Required intermittent cardene -BP management per Nephrology, appreciate recsUniversity of [facility]07-01-2025 Note-Prior episodes of DVT, on Eliquis. Physical exam showed evidence of LLE swelling. -b/l LE doppler negative for DVTUnAshtabula General Hospital07-01-2025 Note-Continue Zetia, aspirin -ultrasound showing <50% stenosis R ICA, 50-69% stenosis L ICA -Will need outpatient surveillanceUnAshtabula General Hospital07-01-2025 Note-Continue Zetia, fenofibrate, aspirinUnAshtabula General Hospital 03-18-2025 NoteHospital Medicine Daily Progress Note - 03/18/2025 7:20 AM; Room: [address] [place] [address] Admission: 03/13/2025 1:02 AM; Length of stay: 5 days THE HOSPITALIST TEAM PREFERS TO USE [employer] CHAT FOR NON-URGENT COMMUNICATION 7AM-7PM. IF I DO NOT RESPOND WITHIN 20 MINUTES OR URGENT MATTERS, PLEASE CALL THROUGH THE HUMAN DEVELOPMENT PROFESSOR. FROM 7PM-7AM, PLEASE PAGE [phone](COVR). Code Status: Full Code Barriers to Discharge: [...] Hypertensive emergency NSTEMI (non-ST elevated myocardial infarction) ([facility]) Acute kidney injury superimposed on chronic kidney disease -likely 2/2 medication non-adherence - renal negative for stenosis -aldosterone, renin wnl -Required intermittent cardene -BP management per Nephrology, appreciate recs Stage 4 chronic kidney disease ([facility]) -TOMASA on CKD during admission, likely ATN [...] diabetes mellitus with other diabetic kidney complication ([facility]) -[facility] Tobacco dependence -NRT -Advised on cessation Other abnormalities of gait and mobility -PT/OT following -Plan for [facility] dispo Severe protein-calorie malnutrition ([facility]/HCC) -RD following, see below Nutrition Screen: [...] Academy of Nutrition and Dietetics and the [place] [employer] of Enteral and Parenteral Nutrition, meets [...] 03/13/25 1748 03/13/25 073 (more content not included)...[facility]07-01-2025 NoteProblem: Safety - Adult Goal: Free from fall injury Outcome: Progressing The patient is Moderately Stable - Low risk of patient condition declining or worsening The patient's goals for the shift include comfort The clinical goals for the shift include VSS, safetyUnAshtabula General Hospital06-30-2025 NotePhysical Therapy Name: Marleni Dennis Date of : 1950 Today's Date: 03/17/25 Oh no you can't work with me today. Session okay per RN, requests pt's BP be recorded prior to mobility. Pt supine in bed upon arrival, refuses PT this afternoon d/t being too tired. Is, however, agreeable to this senior underwriter obtaining BP: 139/50 mmHg. RN aware. Check No Charge Time attempted: 1425 Giancarlo Calderón, PT, DPTUnAshtabula General Hospital06-30-2025 Note-TOMASA on CKD during admission, likely ATN -Cr upward trend -Daily BMP -Defer fluids to NephrologyUnAshtabula General Hospital06-30-2025 Note- likely 2/2 medication non-adherence -US renal negative for stenosis -aldosterone, renin wnl -Required intermittent cardene -BP management per Nephrology, appreciate recsUniversgeorgetown behavioral hospital of [facility]06-30-2025 Note-likely 2/2 medication non-adherence -US renal negative for stenosis -aldosterone, renin wnl -Required intermittent cardene -BP management per Nephrology, appreciate recsUniOhioHealth Mansfield Hospital06-30-2025 NoteOccupational Therapy Occupational Therapy Treatment Patient [...] 4 Eating meals? 4 Total Score OT [facility] 21 OT Goals: Multi-Disciplinary Problems (from Occupational Therapy) Active Problems Problem: Balance Start Date: 03/14/25 Goal Start Date Expected End Date End Date LTG - Patient will maintain stand balance to (more content not included)... [facility]06-30-[facility] Note-Continue LexaproUnAshtabula General Hospital06-30-2025 Note-Continue Zetia, aspirin -ultrasound showing <50% stenosis R ICA, 50-69% stenosis L ICA -Will need outpatient surveillanceUnAshtabula General Hospital06-30-2025 Note-NRT -Advised on cessationUnAshtabula General Hospital06-30-2025 Note-MCS SSI [facility]06-30-2025 Note-RD following, see below [facility]06-30-2025 Note-PT/OT following -Plan for [facility] dispoUnAshtabula General Hospital06-30-2025 Note-would benefit repeating duplex scan of the abdomen as an outpatientUnAshtabula General Hospital06-30-2025 Note-Prior episodes of DVT, on Eliquis. Physical exam showed evidence of LLE swelling. -b/l LE doppler negative for DVTUnAshtabula General Hospital06-30-2025 Note-Continue Zetia, fenofibrate, aspirinUnAshtabula General Hospital 03-17-2025 NoteHospital Medicine Daily Progress Note - 03/17/2025 8:33 AM; Room: [facility]/4108- Admission: 03/13/2025 1:02 AM; Length of stay: 4 days THE HOSPITALIST TEAM PREFERS TO USE [employer] CHAT FOR NON-URGENT COMMUNICATION 7AM-7PM. IF I DO NOT RESPOND WITHIN 20 MINUTES OR URGENT MATTERS, PLEASE CALL THROUGH THE HUMAN DEVELOPMENT PROFESSOR. FROM 7PM-7AM, PLEASE PAGE [phone](COVR). Code Status: Full Code Barriers to Discharge: [...] Hypertensive emergency NSTEMI (non-ST elevated myocardial infarction) ([facility]) Acute kidney injury superimposed on chronic kidney disease -likely 2/2 medication non-adherence -US renal negative for stenosis -aldosterone, renin wnl -Required intermittent cardene -BP management per Nephrology, appreciate recs Stage 4 chronic kidney disease ([facility]/HCC) -TOMASA on CKD during admission, likely [...] mellitus with other diabetic kidney complication (CMS/HCC) -[facility] Tobacco dependence -NRT -Advised on cessation Other abnormalities of gait and mobility -PT/OT following -Plan for [facility] dispo Severe protein-calorie malnutrition (CMS/HCC) [...] Academy of Nutrition and Dietetics and the [place] Society of Enteral and Parenteral Nutrition, meets [...] 03/13/25 0738 SODIUM mmol (more content not included)...[facility] 03-17-2025 NoteNephrology Progress Note Patient : Marleni Dennis; 74 y.o. Location: [facility]8/4108-01 Attending: Erickson Cabrera MD Admit Date: 03/13/2025 Hospital Day: 4 Reason for Consult: CKD IV with uncontrolled hypertension. Subjective: History of present illness: Marleni Dennis is a 74 y.o. female who was transferred from [facility] after presenting with weakness after a fall as well as uncontrolled hypertension. She has pertinent past medical history of hypertension secondary to renal artery stenosis, CKD IV, CAD s/p CABG and PCI with stent placement, obstructive sleep apnea. She presented to [place] [facility] after a fall after showering as [...] does not regularly follow up with a model maker. She says she has a water pill [...] Dose Status apixaban (Eliquis) 2.5 mg tablet [id number] TAKE 1 TABLET BY MOUTH TWICE A DAY FOR 90 DAYS Historical ProviderMD Active aspirin 81 mg EC tablet [id number] Take 1 tablet every day by oral route. Historical ProviderMD Flag for Review buPROPion (Wellbutrin) 75 mg tablet [id number] Yes Take 75 mg by mouth twice a day. Historical ProviderMD Active carvedilol (Coreg) 12.5 mg tablet [id number] No Take 25 mg by mouth with breakfast and with evening meal. Patient not taking: Reported on 03/13/2025 Historical MD Soham Not Taking Active DULoxetine (Cymbalta) [address] capsule [id number] Take 30 mg by mouth every other day. Weaning off of duloxetine (takes 60 mg daily AND 30 mg every other day_) Historical ProviderMD Active DULoxetine (Cymbalta) [address] capsule 487644 Take 1 tablet by mouth in the morning. Weaning off of duloxetine (takes 60 mg daily AND 30 mg every other day_) Historical ProviderMD Active ezetimibe (Zetia) 10 mg tablet 540603 Take (more content not included)... [facility]06-29-2025 Note Attestation signed by Sharee Mckeon [...] Faculty, Division of Nephrology, Department of Medicine, [facility]. Nephrology Progress Note Patient : Marleni Dennis; 74 y.o. Location: 4108/4108-01 Attending: Erickson Cabrera MD Admit Date: 03/13/2025 Hospital Day: 3 Reason for Consult: CKD IV with uncontrolled hypertension. Subjective: History of present illness: Marleni Dennis is a 74 y.o. female who was transferred from [facility] after presenting with weakness after a fall as well as uncontrolled hypertension. She has pertinent past medical history of hypertension secondary to renal artery stenosis, CKD IV, CAD s/p CABG and PCI with stent placement, obstructive sleep apnea. She presented to [facility] after a fall after showering as [...] does not regularly follow up with a model maker. She says she has a water pill [...] Dose Status apixaban (Eliquis) 2.5 mg tablet [id number] TAKE 1 TABLET BY MOUTH TWICE A DAY FOR 90 DAYS Historical Provider, Active aspirin 81 mg EC tablet [id number] Take 1 tablet (more content not included)... [facility]06-29-2025 Note-likely 2/2 medication non-adherence -US renal negative for stenosis -pending aldosterone, renin -Required intermittent cardene -Continue Coreg 25, hydralazine 100 TID, nifedipine 60 BID -Due to consulting services changes orders without communication to primary, will defer all BP management to Nephrology to avoid inevitable complications from multiple prescribers.[facility]06-29-2025 Note-TOMASA on CKD during admission, likely ATN -Cr mild increased today -Daily BMP -Defer fluids to NephrologyUnAshtabula General Hospital06-29-2025 Note- MCS SSIUnAshtabula General [facility] Note-Continue Zetia, aspirin -ultrasound showing <50% stenosis R ICA, 50-69% stenosis L ICA -Will need outpatient surveillanceUnAshtabula General Hospital06-29-2025 Note-RD following, see belowUnAshtabula General Hospital06-29-2025 Note- PT/OT following -Plan for HHC dispoUnAshtabula General Hospital06-29-2025 Note-NRT -Advised on cessationUnAshtabula General Hospital06-29-2025 Note-would benefit repeating duplex scan of the abdomen as an outpatientUnAshtabula General Hospital06-29-2025 Note-Prior episodes of DVT, on Eliquis. Physical exam showed evidence of LLE swelling. -b/l LE doppler negative for DVTUnAshtabula General Hospital06-29-2025 Note-Continue LexaproUnAshtabula General Hospital06-29-2025 Note-Continue Zetia, fenofibrate, aspirinUnAshtabula General Hospital06-29-2025 Note Hospital Medicine Daily Progress Note - 03/16/2025 7:20 AM; Room: [address] [place] [address] Admission: 03/13/2025 1:02 AM; Length of stay: 3 days THE HOSPITALIST TEAM PREFERS TO USE Narrative FOR NON-URGENT COMMUNICATION 7AM-7PM. IF I DO NOT RESPOND WITHIN 20 MINUTES OR URGENT MATTERS, PLEASE CALL THROUGH THE HUMAN DEVELOPMENT PROFESSOR. FROM 7PM-7AM, PLEASE PAGE [phone](COVR). Code Status: Full Code Barriers to Discharge: [...] Hypertensive emergency NSTEMI (non-ST elevated myocardial infarction) ([facility]) Acute kidney injury superimposed on chronic kidney disease -likely 2/2 medication non-adherence - renal negative for stenosis -pending aldosterone, renin -Required intermittent cardene -Continue Coreg 25, hydralazine 100 TID, nifedipine 60 BID -Due to consulting services changes orders without communication to primary, will defer all BP management to Nephrology to avoid inevitable complications from multiple prescribers. Stage 4 chronic kidney disease ([facility]) -TOMASA on CKD during admission, likely ATN [...] diabetes mellitus with other diabetic kidney complication ([facility]) -[facility] SSI Tobacco dependence -NRT -Advised on cessation Other abnormalities of gait and mobility -PT/OT following -Plan for [facility] dispo Severe protein-calorie malnutrition ([facility]) -RD following, see below Nutrition Screen: Clinical [...] Academy of Nutrition and Dietetics and the [place] Society of Enteral and Parenteral Nutrition, meets [...] Units 03/16/25 0500 03/15/25 (more content not included)...[facility]06-28-2025 Note -likely 2/2 medication non-adherence -US renal negative for stenosis -pending aldosterone, renin -Required intermittent cardene -Continue Coreg 25, hydralazine 100 TID, nifedipine 30 BID -Avoid relative hypotension and rapid changes to medications prior to steady state in order to avoid such labile BPUnAshtabula General Hospital 03-15-2025 Note-would benefit repeating duplex scan of the abdomen as an outpatientUnAshtabula General Hospital06-28-2025 Note-PT/OT following -Plan for [facility] dispoUnAshtabula General Hospital06-28-2025 Note-Prior episodes of DVT, on Eliquis. Physical exam showed evidence of LLE swelling. -b/l LE doppler negative for DVTUnAshtabula General Hospital06-28-2025 Note-TOMASA on CKD during admission, likely ATN -Cr plateau today, hold fluids and monitor daily BMP -If improved tomorrow and BP stable then dischargeUnAshtabula General Hospital06-28-2025 Note-Continue Zetia, fenofibrate, aspirinUnAshtabula General Hospital06-28-2025 Note-Continue Zetia, aspirin -ultrasound showing <50% stenosis R ICA, 50-69% stenosis L ICA -Will need outpatient surveillanceUnAshtabula General Hospital06-28-2025 Note-NRT -Advised on cessationUnAshtabula General Hospital06-28-2025 Note-Continue LexaproUnAshtabula General Hospital06-28-2025 Note-MCS SSIUnAshtabula General Hospital06-28-2025 Note-RD following, see belowUnAshtabula General Hospital06-28-2025 Note Attestation signed by Sharee Mckeon [...] Division of Nephrology, Department of Medicine, [employer]. Nephrology Progress Note Patient : Marleni Dennis; 74 y.o. Location: [id number] Attending: Erickson Cabrera MD Admit Date: 03/13/2025 Hospital Day: 2 Reason for Consult: CKD IV with uncontrolled hypertension. Subjective: History of present illness: Marleni Dennis is a 74 y.o. female who was transferred from [facility] after presenting with weakness after a fall as well as uncontrolled hypertension. She has pertinent past medical history of hypertension secondary to renal artery stenosis, CKD IV, CAD s/p CABG and PCI with stent placement, obstructive sleep apnea. She presented to [place] [facility] after a fall after showering as [...] does not regularly follow up with a model maker. She says she has a water pill [...] RN (Registered Nurse) (more content not included)... [facility]06-28-2025 NoteHospital Medicine Daily Progress Note - 03/15/2025 7:32 AM; Room: [address] [place] [address] Admission: 03/13/2025 1:02 AM; Length of stay: 2 days THE HOSPITALIST TEAM PREFERS TO USE Narrative FOR NON-URGENT COMMUNICATION 7AM-7PM. IF I DO NOT RESPOND WITHIN 20 MINUTES OR URGENT MATTERS, PLEASE CALL THROUGH THE HUMAN DEVELOPMENT PROFESSOR. FROM 7PM-7AM, PLEASE PAGE [phone](COVR). Code Status: Full Code Barriers to Discharge: [...] Hypertensive emergency NSTEMI (non-ST elevated myocardial infarction) ([facility]) Acute kidney injury superimposed on chronic kidney [...] outpatient surveillance Stage 4 chronic kidney disease ([facility]) -TOMASA on CKD during admission, likely ATN [...] diabetes mellitus with other diabetic kidney complication ([facility]) -[facility] SSI Tobacco dependence -NRT -Advised on cessation Other abnormalities of gait and mobility -PT/OT following -Plan for [facility] dispo Severe protein-calorie malnutrition ([facility]/HCC) -RD following, see below Nutrition Screen: [...] Academy of Nutrition and Dietetics and the [place] Society of Enteral and Parenteral Nutrition, meets [...] NIFEdipine XL, 30 mg (more content not included)...[facility]06-27-2025 NoteNephrology Progress Note Patient : Marleni Dennis; 74 y.o. Location: 4108/4108-01 Attending: Erickson Cabrera MD Admit Date: 03/13/2025 Hospital Day: 1 Reason for Consult: CKD IV with uncontrolled hypertension. Subjective: History of present illness: Marleni Dennis is a 74 y.o. female who was transferred from [facility] after presenting with weakness after a fall as well as uncontrolled hypertension. She has pertinent past medical history of hypertension secondary to renal artery stenosis, CKD IV, CAD s/p CABG and PCI with stent placement, obstructive sleep apnea. She presented to [place] [facility] after a fall after showering as [...] does not regularly follow up with a model maker. She says she has a water pill [...] Dose Status apixaban (Eliquis) 2.5 mg tablet 089387 TAKE 1 TABLET BY MOUTH TWICE A DAY FOR 90 DAYS Historical ProviderMD Active aspirin 81 mg EC tablet [id number] Take 1 tablet every day by oral route. Historical ProviderMD Flag for Review buPROPion (Wellbutrin) 75 mg tablet [id number] Yes Take 75 mg by mouth twice a day. Historical ProviderMD Active carvedilol (Coreg) 12.5 mg tablet [id number] No Take 25 mg by mouth with breakfast and with evening meal. Patient not taking: Reported on 03/13/2025 Historical MD Soham Not Taking Active DULoxetine (Cymbalta) [address] capsule [id number] Take 30 mg by mouth every other day. Weaning off of duloxetine (takes 60 mg daily AND 30 mg every other day_) Historical Provider, Active DULoxetine (Cymbalta) [address] capsule [id number] Take 1 tablet by mouth in the morning. Weaning off of duloxetine (takes 60 mg daily AND 30 m (more content not included)...[facility]06-27-2025 Note- Prior episodes of DVT, on Eliquis. Physical exam showed evidence of LLE swelling. - Will order LLE doppler for further evaluation.[facility]06-27-2025 NoteMay benefit repeating duplex scan of the abdomen as an outpatientUnAshtabula General Hospital06-27-2025 NoteAs aboveUnAshtabula General Hospital06-27-2025 Note- Nephrology consult blood pressure controlled aim for good glycemic control avoid nephrotoxic meds will discontinue NSAIDs which she is taking as well as ARB - Kidney function declining, likely secondary to hypertensive emergency on admission. Cr = 3.12, BUN 46, GFR 15. Continue monitoring levels and volume status. Continued LR infusion.[facility]06-27-2025 Note - history of severe unintentional weight loss due to decreased PO intake. - Today, patient found to have improved PO intake. Continue monitoringUnAshtabula General Hospital06-27-2025 Note- Nicotine replacement counseling, discussed with patient about having coronary disease peripheral arterial disease which can worsen with tobacco useUnAshtabula General Hospital06-27-2025 Note- Blood sugar check dietUnAshtabula General Hospital06-27-2025 Note- With issues with hypertension discontinue Wellbutrin she scored 4 on depression scale we will add LexaproUnAshtabula General Hospital 03-14-2025 Note- Continue Zetia, aspirin - Ultrasound Carotid artery showed bilateral stenosis >50%[facility]06-[facility]- Cardiology recommend Zetia and fibrate on aspirin [facility]06-27-2025 Note- Suspect secondary hypertension most likely due to renal artery stenosis. Continues to be hypertensive today however, she is asymptomatic. - Renal ultrasound done showed left side stenosis with a diameter of < 9 cm. Right side unremarkable. - Pending aldosterone/renin levels. - Cardiology discontinued Nicardipine drip and recommend continuation of Coreg and Hydralazine.[facility]06-27-2025 NoteFall event PT OT to see patient fall precautionsUnAshtabula General Hospital06-27-2025 NoteCase was discussed with the Medical [...] Progress Note - 03/14/2025 11:33 AM; Room: [address] [place] [address] Admission: 03/13/2025 1:02 AM; Length of stay: 1 days THE HOSPITALIST TEAM PREFERS TO USE Narrative FOR NON-URGENT COMMUNICATION 7AM-7PM. IF I DO NOT RESPOND WITHIN 20 MINUTES OR URGENT MATTERS, PLEASE CALL THROUGH THE HUMAN DEVELOPMENT PROFESSOR. FROM 7PM-7AM, PLEASE PAGE [phone](COVR). Code Status: Full Code Barriers to Discharge: [...] stenosis >50% Stage 4 chronic kidney disease ([facility]/HCC) - Nephrology consult blood pressure controlled aim [...] further evaluation. NSTEMI (non-ST elevated myocardial infarction) ([facility]) As above Severe protein-calorie malnutrition ([facility]) - history of severe unintentional weight loss [...] diabetes mellitus with other diabetic kidney complication ([facility]) - Blood sugar check diet Tobacco dependence - Nicotine replacement counseling, discussed with patient about having coronary disease peripheral arterial disease which can worsen with tobacco use Nutrition Screen (more content not included)...[facility]06-27-2025 NoteOccupational Therapy Occupational Therapy Evaluation Patient Name: Marleni Dennis : 1950 Today's Date: 03/14/2025 Time In: 931 Time Out: 949 Marleni Dennis is an 74 y.o. female admitted from [facility] as a direct transfer where [...] Walker rolling, Rollator, Emergency Alert (sc, gb, [facility] rts) Home Layout: Able to live on main level with bedroom/bathroom, Full bath main level Home Access: Stairs to enter with rails (3) Bathroom Shower/Tub: Walk-in shower Prior Level of Function Prior Function Level of [place]: Independent with ADLs and functional transfers, Independent [...] flex/aarom wfo@ 3/5., represets as a RTC heriberto,, distal wfl) LUE Assessment LUE Assessment: Within [...] Eating meals?: None (Independent) Total Score OT [facility]: 21 Assessment/Plan OT Assessment OT Impairments: Decreased ADL status, Decreased endurance, Decreased functional mobility OT Assessment/HAND THERAPIST Summary: (needs skilled OT due to weakness [...] [1] Patient Active Prob (more content not included)...[facility]06-27-2025 NotePhysical Therapy Physical Therapy Treatment Patient [...] Clicks T-Score: 18 Assessment/Plan PT Assessment PT Assessment/LABORER PIPELINES Summary: The patient requires skilled PT interventiondue [...] chair with chair alarm (more content not included)...[facility]06-26-2025 Note03/13/25 1707 Admission Assessment Questions Verify [...] Not Interested Does the patient have a complex case manager assigned to them through their [...] and recent fall at home; PT=not able, OT=HHC.[facility]06-26-2025 Note Physical Therapy Physical Therapy Evaluation [...] Summary: 72 y/o female s/p transfer from [facility] after presenting following fall and uncontrolled HTN. 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 PMH: HTN, renal artery stenosis, DVT/PE, CKD4, CAD s/p CABG, PVD s/t B common iliac stenting, LEE, depression, occluded carotid artery Current Dx: NSTEMI Patient off floor at [facility]. Will return to attempt eval. Kari Figueroa PT, MPT [facility] Acute RehabilitationUnAshtabula General Hospital 03-13-2025 NoteSuspect secondary hypertension most likely due to renal artery stenosis continue nitrates add Coreg we will have cardiology see patient as well as nephrology. Discussed with patient but tobacco abstinence low-salt low-fat dietUnAshtabula General Hospital06-26-2025 NoteMay benefit repeating duplex scan of the abdomen as an outpatientUnAshtabula General Hospital06-26-2025 NoteFall event PT OT to see patient fall precautionsUnAshtabula General Hospital 03-13-2025 NoteWith issues with hypertension discontinue Wellbutrin she scored 4 on depression scale we will add LexaproUnAshtabula General Hospital06-26-2025 Note Nicotine replacement counseling, discussed with patient about having coronary disease peripheral arterial disease which can worsen with tobacco useUnAshtabula General Hospital06-26-2025 Note) Blood sugar check dietUnAshtabula General Hospital06-26-2025 NoteContinue Zetia aspirinUnAshtabula General Hospital06-26-2025 NoteCycle troponin patient has intolerance and side effect with statins currently on Zetia and fibrate on aspirin Cardiology follow-up patientUnAshtabula General Hospital06-26-2025 NoteAs aboveUnAshtabula General Hospital06-26-2025 NoteNephrology consult blood pressure controlled aim for good glycemic control avoid nephrotoxic meds will discontinue NSAIDs which she is taking as well as ARB [facility]06-26-2025 NoteHospital Medicine History and Physical 03/13/2025 2:55 AM THE HOSPITALIST TEAM PREFERS TO USE [employer] CHAT FOR NON-URGENT COMMUNICATION 7AM-7PM. IF I DO NOT RESPOND WITHIN 20 MINUTES OR URGENT MATTERS, PLEASE CALL THROUGH THE HUMAN DEVELOPMENT PROFESSOR. FROM 7PM-7AM, PLEASE PAGE [phone](COVR). Chief Complaint No chief complaint on file. History of Present Illness Marleni Dennis is an 74 y.o. female admitted from [facility] as a direct transfer where [...] CPAP. He came to the ER at [facility] because of a fall according [...] artery disease without angina (more content not included)...[facility]06-10-2025 History of Present illness Narrative* Renetta [...] bilateral femoral stent FEMORAL ARTERY STENT Bilateral [place] REMOVE TONSILS/ADENOIDS,12+ Y/O SPINE SURGERY fusion of [...] all orders for this visit: Thyroid nodule ([facility]/HCC) - US thyroid; Future Await results of ultrasound. Was scanned and biopsied in the past and was negative for malignancy but now she is losing her hair, she is always tired, and she is losing weight. Type 2 diabetes mellitus with diabetic chronic kidney disease ([facility]/HCC) Discussed today the importance of proper diabetic [...] No follow-ups on file. documented in this encounterSelect Specialty [id number] History of Present illness Narrative* Jack Vogt [...] mg) before bedtime. 90 tablet 11 HYDROcodone-acetaminophen ([place]) 5-325 MG tablet Take 1 tablet by [...] bilateral femoral stent FEMORAL ARTERY STENT Bilateral [place] REMOVE TONSILS/ADENOIDS,12+ Y/O SPINE SURGERY fusion of [...] LDL-C. Andres MOODY et al. NICOLE. 2013;310(19): 8974-6334 (http://[employer]/faq/CGD131) CHOL/HDLC RATIO 01/01/2025 3.7 <5.0 (calc) Final [...] F/U, Perform Labwork (CMP). documented in this encounterSelect Specialty [id number] History of Present illness Narrative* Jack Vogt [...] NEEDED FOR SLEEP 30 tablet 5 HYDROcodone-acetaminophen ([place]) 5-325 MG tablet Take 1 tablet by [...] Do you have a medical power of regulatory attorney?: No Objective : BP 132/62 Pulse [...] a living will and durable power of regulatory attorney for healthcare. We discussed telling españa [...] - Handicap Placard 5 Years - HYDROcodone-acetaminophen ([place]) 5-325 MG tablet; Take 1 tablet by mouth every 6 (six) hours if needed for severe pain Stage 3b chronic kidney disease (HCC) (CMS/HCC) - Comprehensive metabolic panel; Future - CBC and differential Pulmonary fibrosis, unspecified ([facility]) Type 2 diabetes mellitus with diabetic peripheral angiopathy without gangrene ([facility]/HCC) - POCT Glycated hemoglobin, total - [...] on December 12, 2024 documented in this encounterSelect Specialty [id number] Hospital Discharge instructions Patient Education 11/18/2024 14:23:43 [...] provider. Document Revised: 01/13/2022 Document Reviewed: 01/13/2022 [employer] Patient Education 2023 [employer]. Follow Up Care 09/30/2024 12:57:18 With:RONALD BEAULIEU, Alfredo Moya, URL Address: [facility] [address], [place] [address]- [phone] When: Unknown [facility] [place] 03-03-2025 NotePatient Education Obstetrics and Gynecology [place] [...] provider. Document Revised: 01/13/2022 Document Reviewed: 01/13/2022 [employer] Patient Education ? 2023 [employer].[facility] 11-04-2024 Telephone encounter Note* Telephone Encounter - Brianne Portillo - 11/04/2024 9:31 AM EST Pt scheduled [facility] Specialty [id number] Miscellaneous Notes* Telephone Encounter - Brianne Portillo - 11/04/2024 9:31 AM EST Pt scheduled * Telephone Encounter - GISSELLE Sigala - 11/04/2024 8:00 AM EST Please help pt get set up for Medicare Wellness visit after 12/12. Cymbalta refill sent. documented in this encounterNOSac-Osage [id number] Telephone encounter Note* Telephone Encounter - GISSELLE Sigala - 11/04/2024 8:00 AM EST Please help pt get set up for Medicare Wellness visit after 12/12. Cymbalta refill sent. [facility] [id number] NoteUT Cardiology - [facility] Subjective Marleni Dennis is [...] therapy. She was admitted previously to the [facility] due to significant lower extremity edema. She underwent testing including arterial duplex ultrasound that suggested possible significant stenosis. She denies symptoms of ischemia in the legs. She uses a cane to ambulate. (more content not included)...[facility]07-02-2024 Hospital Discharge instructions Patient Education 03/19/2024 [...] (electrical nerve stimulation). ?For women, using a quality engineer medical device to prevent urine leaks. This is a [...] right after experiencing incontinence. General instructions Take vybx-maw-njmtczp and prescription medicines only as told by [...] important. Where to find more information [employer] [place] of Diabetes and Digestive and Kidney Diseases: www.niddk.nih.gov [place] [employer]: www.urologyhealth.org Contact a health care [...] provider. Document Revised: 04/09/2021 Document Reviewed: 04/09/2021 [employer] Patient Education 2022 [employer]. Follow Up Care 10/23/2023 13:29:02 With:RONALD BEAULIEU, Alfredo Moya, URL Address: [facility] [address] , [place] [address]- [phone] When: Unknown Comments:6 mos w/ MRI [facility] 07-02-2024 Hospital Discharge instructions Follow Up Care 03/19/2024 15:04:53 With:RONALD BEAULIEU, Alfredo Moya, URL Address: [facility] [address] , [place] [address]- [phone] When: Unknown [facility] 07-02-2024 NotePatient Education Urology Urinary Incontinence [...] nerve stimulation). ? For women, using a quality engineer medical device to prevent urine leaks. This is a [...] (electrical nerve stimulation). ?For women, using a quality engineer medical device to prevent urine leaks. This is a [...] right after experiencing incontinence. General instructions Take qiqj-otw-eksshja and prescription medicines only as told by [...] important. Where to find more information [employer] [place] of Diabetes and Digestive and Kidney Diseases: www.niddk.nih.gov [place] [employer]: www.urologyhealth.org Contact a health care [...] provider. Document Revised: 04/09/2021 Document Reviewed: 04/09/2021 [employer] Patient Education 2022 [employer]. Follow Up Care 07/28/2023 12:50:01 With:RONALD BEAULIEU, Alfredo Moya, URL Address: [facility] [address] , [place] [address]- [phone] When: Unknown [facility] 01-09-2023 Hospital Discharge instructions Patient Education 09/26/2022 13:45:35 Urinary Tract Infection, Adult, Mbem-pw-Rqcj Urinary Tract Infection, Adult A urinary tract [...] Follow these instructions at home: Medicines Take fhnd-afn-asflywg and prescription medicines only as told by [...] 02/20/2009 Document Revised: 08/22/2019 Document Reviewed: 03/14/2019 [employer] Patient Education 2020 [employer]. Follow Up Care 03/04/2022 10:43:44 With:RONALD BEAULIEU, SONIA Montelongo Address: [facility] [address] [place] [address]- [phone] When:Within 10 Month(s) Comments:CT AP w/ contrast [facility] Hospital Discharge instructions Patient Education 03/04/2022 [...] Treatment for this condition includes: Antibiotic medicine. Bzwy-pjx-hqpcbgo medicines to treat discomfort. Drinking enough water [...] Follow these instructions at home: Medicines Take thne-var-efllibw and prescription medicines only as told by [...] 06/14/2006 Document Revised: 08/22/2019 Document Reviewed: 03/14/2019 [employer] Patient Education 2020 [employer]. Follow Up Care 06/28/2021 14:36:35 With:RONALD BEAULIEU, Alfredo Moya, URL Address: [facility] [address], [place] [phone] When:09/03/2022 [facility] evaluation + Plan note Future Appointments Appointment Date:08/29/2022 01:30:00 PM Scheduled Provider:Alfredo CARDENAS MD Location:[facility] Appointment Type:URO Office Visit [facility] evaluation + Plan note Future Appointments Appointment Date:07/24/2023 01:15:00 PM Scheduled Provider:Alfredo CARDENAS MD Location:[facility] Appointment Type:URO Office Visit [facility] evaluation + Plan note Future Appointments Appointment Date:01/22/2024 11:45:00 AM Scheduled Provider:Alfredo CARDENAS MD Location:[facility] Appointment Type:URO Office Visit [facility] evaluation + Plan note Future Appointments Appointment Date:09/30/2024 01:15:00 PM Scheduled Provider:Alfredo CARDENAS MD Location:[facility] Appointment Type:URO Office Visit [facility] evaluation + Plan note Future Appointments Appointment Date:10/07/2024 12:30:00 PM Scheduled Provider:Alfredo CARDENAS MD Location:[facility] Appointment Type:URO Office Visit [facility] evaluation + Plan note Future Appointments Appointment Date:11/24/2025 01:15:00 PM Scheduled Provider:Alfredo CARDENAS MD Location:[facility] Appointment Type:URO Office Visit [facility] evaluation noteNo assessment information available [facility] Work Phone: evaluation note* Diagnosis Onset Date Resolution Status Bilateral primary osteoarthritis of knee acuteLymphedemaacuteNicotine useacutePoor dental hygieneacuteWeakness generalizedacute [facility] Work Phone: evaluation note* Diagnosis [...] claudication Stage 3b chronic kidney disease (HCC) ([facility]/HCC) Pulmonary fibrosis, unspecified ([facility]/HCC) Type 2 diabetes mellitus with diabetic peripheral angiopathy without gangrene ([facility]) Localized edema Edema documented [facility] encounter [facility] Diagnosis Stage 3b chronic kidney disease (HCC) (CMS/HCC)- Primary Pulmonary fibrosis, unspecified (CMS/HCC) Localized edema Edema Anxiety Anxiety state, unspecified Depressive disorder ([facility]/HCC) Depressive disorder, not elsewhere classified documented in this encounter [facility]* Diagnosis Thyroid nodule ([facility]/HCC)- Primary Nontoxic uninodular goiter Type 2 diabetes mellitus with diabetic chronic kidney disease ([facility]/HCC) Chronic kidney disease, stage 4 (severe) ([facility]) Hair loss Unspecified alopecia Other fatigue Weight loss Loss of weight Depressive disorder ([facility]) Depressive disorder, not elsewhere classified Decreased estrogen level documented in this encounter [facility]* Diagnosis Atherosclerosis of [place] coronary artery of [place] heart with stable angina pectoris- Primary Type 2 diabetes mellitus with stage 4 chronic kidney disease, without long-term current use of insulin ([facility]) Insomnia due to medical condition Organic insomnia, unspecified Chronic kidney disease, stage 4 (severe) ([facility]) Primary osteoarthritis of both knees documented in this encounter [facility]* Diagnosis Benign essential hypertension Essential hypertension, benign Gastroesophageal reflux disease, unspecified whether esophagitis present Insomnia due to medical condition Organic insomnia, unspecified documented in this encounter [facility]* Diagnosis Benign essential hypertension- Primary Essential hypertension, benign Chronic kidney disease, stage 4 (severe) ([facility]) Localized edema Edema Right flank pain Abdominal pain, unspecified site Routine lab draw documented in this encounter [facility]* Diagnosis Onset Date Resolution Status Admit Date TOMASA (acute kidney injury) acuteJuly 2024 3:58pmAnemiaacuteJuly 2024 3:58pmChronic kidney disease, stage IV (severe)acuteJuly 2024 3:58pmProteinuriaacuteJuly 2024 3:58pm [facility] Work Phone: Evaluation note* Diagnosis Chronic kidney disease, stage 4 (severe) ([facility])- Primary Benign essential hypertension Essential hypertension, benign Functional diarrhea 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 Chronic diastolic congestive heart failure ([facility]) Hypokalemia Hypopotassemia documented in this encounter [facility]* Diagnosis Chronic kidney disease, stage 4 (severe) ([facility])- Primary Chronic diastolic congestive heart failure ([facility]) Atherosclerosis of [place] coronary artery of [place] heart with stable angina pectoris Benign essential hypertension Essential hypertension, benign Degenerative lumbar spinal stenosis Spinal stenosis of lumbar region Radiculopathy of lumbar region Spinal stenosis, lumbar region with neurogenic claudication Spondylolisthesis of lumbar region Need for home health care Routine lab draw Advanced care planning/counseling discussion documented in this encounter [facility]* Diagnosis Onset Date Resolution Status Admit Date Anemia acuteOctober 2024 4:07pmChronic kidney disease, stage IV (severe)acute July 15, 2025 4:07pmFolate deficiencyacuteOct2024 4:07pm HyperparathyroidismacuteOctober 2024 4:07pmHypocalcemiaacuteOctober 2024 4:07pmHypokalemiaacuteOctober 2024 4:07pmHypomagnesemiaacuteOct2024 4:07pmIron deficiencyacuteOctober 2024 4:07pmProteinuriaacute July 15, 2025 4:07pmHypertensive nephropathyresolvedOctober 2024 4:07pm [facility] Work Phone: Hospital course Narrative No data available for this section [facility] Hospital Discharge instructions Additional Instructions Long-Term Facility to manage care: - Full code - PT/OT eval and treat - Routine vital signs - Avoid NSAIDs - GI office will follow-up pathology for H. pylori and if positive recommend 14 days of quad therapy - otherwise, patient will not need outpatient GI follow-up - Renal function panel in 7 days [facility] Work Phone: Progress note No data available for this section [facility] reason for referral (narrative)No reason for referral information available[facility] Work Phone: Summary Purpose Family History Relationship Condition Age at Onset Recorded Date/T katherine Not Specified Myocardial infarction Unknown fatherMyocardial infarctionUnknown Relationship Condition Age at Onset Recorded Date/T katherine mother Myocardial infarction Unknown fatherMyocardial infarctionUnknown Advance Directives Advance Directive Response Recorded Date/ Time Advance Directives No May 2:17pm TypeDate RecordedPatient RepresentativeExplanationAdvance Directives and Living Will07/23/2025 8:46 AMLiving Will DeclarationPower of Ussynmhg89/5/2025 8:45 AM Healthcare Power of Pharmacy Salesperson Chief Complaint and Reason for Visit Chief [...] April 08, 2025 3:58 pm Sent by [employer] April 08, 2025 9:1 6pm Reason for [...] 2025 4 :07pm Hypertensive nephropathy July 15, 025 4:07pm Additional Source Comments INFORMATION SOURCE (unrecogn ized section and content) DATE CREATED AUTHOR 07/06/2018 [facility] DATE CREATED AUTHOR AUTHOR'S ORGANIZ ATION 01/26/2023 [facility] DATE CREATED AUTHOR AUTHOR'S ORGANIZ ATION 11/19/2024 [facility] DATE CREATED AUTHOR AUTHOR'S ORGANIZ ATION 04/07/2025 [facility] DATE CREATED AUTHOR AUTHOR'S ORGANIZ ATION 05/27/2025 [facility] DATE CREATED AUTHOR AUTHOR'S ORGANIZ ATION 06/10/2025 [facility] DATE CREATED AUTHOR AUTHOR'S ORGANIZ ATION 06/30/2025 [employer] [facility] Care Teams (unrecognized sec tion and [...] MemberRelationshipSpecialtyStart DateEnd Date Jack Vogt MD [address] [place] [address] PCP - GeneralInternal Medicine01/24/23am MemberRelationshipSpecialtyStart Date End Date Jack Vogt MD [address] [place] [address] PCP - GeneralInternal Medicine01/24/23am MemberRelationshipSpecialtyStart Date End Date Jack Vogt MD [address] [place] [address] PCP - GeneralInternal Medicine01/24/23am MemberRelationshipSpecialtyStart Date End Date Jack Vogt MD [address] [place] [address] PCP - GeneralInternal Medicine01/24/23am MemberRelationshipSpecialtyStart Date End Date Jack Vogt MD [address] [place] [address] PCP - GeneralInternal Medicine01/24/23am MemberRelationshipSpecialtyStart Date End Date Jack Vogt MD [address] [place] [address] PCP - GeneralInternal Medicine01/24/23am MemberRelationshipSpecialtyStart Date End Date Jack Vogt MD [address] [place] [address] PCP - GeneralInternal Medicine01/24/23am MemberRelationshipSpecialtyStart Date End Date Jack Vogt MD [address] [place] [address] PCP - GeneralInternal Medicine01/24/23Team MemberRelationshipSpecialtyStart Date End Date Jack Vogt MD [address] [place] [address] PCP - GeneralInternal Medicine01/24/23Team MemberRelationshipSpecialtyStart Date End Date Jack Vogt MD [address] [place] [address] PCP - GeneralInternal Medicine01/24/23Team MemberRelationshipSpecialtyStart Date End Date Jack Vogt MD [address] [place] [address] PCP - [facility] Cent[facility]01/24/23 Team Status: Inactive Member Role Status Dates Jack Vogt II MD Primary Care Provider Active Start: April 08, 2025 End: April 08Anna Schwartzending ProviderActiveStart: April 08, 2025 End: April 08, 2025 Team Status: Active Member Role Status Dates Jack Vogt II MD Primary Care Provider Active Start: April 08, 2025 Juhi Hickey ProviderActiveStart: April 08, 2025 Rajiv Trejo MDAdmit ProviderActiveStart: April 08, 2025 Rajiv Trejo [...] MDOther ProviderActiveStart: April 08, 2025 Andrew Arrington , MDAttending ProviderActiveStart: April 08, 2025 Andrew Arrington MDOther ProviderActiveStart: April 08, 2025 Estefania Yoder , APRNOther ProviderActiveStart: April 08, 2025 Keith Koehler Jr, DOOther ProviderActiveStart: April 08, 2025 Pilo Harry MDOther ProviderActiveStart: April 08, 2025 Team MemberRelationshipSpecialtyStart DateEnd Date Jack Vogt MD [address] [facility] [address] [place] [address] PCP - GeneralInternal Medicine01/24/23Team MemberRelationshipSpecialtyStart Date End Date Jack Vogt MD [address] [facility] [address] [place] [address] PCP - GeneralInternal Medicine01/24/23Team MemberRelationshipSpecialtyStart Date End Date Jack Vogt MD [address] [facility] [address] [place] [address] PCP - GeneralInternal Medicine01/24/23 Chantelle Recio, TEA BAG MACHINE TENDER [address] [place] [address] Social WorkerCorrigan Mental Health Center Medicine06/10/25Team MemberRelationshipSpecialtyStart DateEnd Date Jack Vogt MD [address] [facility] [address] [place] [address] PCP - GeneralInternal Medicine01/24/23 Chantelle Recio, TEA BAG MACHINE TENDER [address] [facility] [place] [address] Social WorkerUnion General Hospital06/10/25Team MemberRelationshipSpecialtyStart DateEnd Date Jack Vogt MD [address] [place] [address] PCP - GeneralInternal Medicine01/24/23 Chantelle Recio, TEA BAG MACHINE TENDER [address] [facility] [place] [address] Social WorkerCorrigan Mental Health Center Medicine06/10/25 Valerie Go, DEBORA [address] [facility] [address] [place] [address] Registered NurseUnion General Hospital06/30/25 Team Status: Active Member Role/Relationship Status Dates Jack Vogt II MD Primary Care Provider Active Team Status: Active Member Role/Relationship Status Dates Jack Vogt II MD Primary Care Provider Active Start: July 09, 2025 Malinda Silva ProviderActiveStart: July 09, 2025 Team Status: Active [...] MemberRelationshipSpecialtyStart DateEnd Date Jack Vogt MD [address] [place] [address] PCP - GeneralInternal Medicine01/24/23 Chantelle Recio, TEA BAG MACHINE TENDER [address] [facility] [place] [address] Social WorkerCor[facility]igan Mental [facility] Medicine06/10/25 Valerie Go RN [address] [place] [address] Registered NurseUnion General Hospital06/30/25Team MemberRelationshipSpecialtyStart DateEnd Date Jack Vogt MD [address] [place] [address] PCP - GeneralInternal Medicine01/24/23 Chantelle Recio, TEA BAG MACHINE TENDER [address] [facility] [place] [address] Social WorkerUnion General Hospital06/10/25 Valerie Go RN [address] [facility] [address] [place] [address] Registered NurseUnion General Hospital06/30/25Team MemberRelationshipSpecialtyStart DateEnd Date Jack Vogt MD [address] [place] [address] PCP - GeneralInternal Medicine01/24/23 Chantelle Recio, TEA BAG MACHINE TENDER [address] [facility] [place] [address] Social WorkerUnion General Hospital06/10/25 Valerie Go, DEBORA [address] [facility] [address] [place] [address] Registered NurseUnion General Hospital06/30/25 Goals (unrecognized section and content) Type Treatment Intervention Code Status: Full Code Reason for Visit (unrecogniz ed section and content) ReasonCommentsMed RefillReasonCommentsMedicare Annual Wellness Visit Subsequent Med RefillWould like rx for hydrocodone--states she gets 2ReasonCommentsDiabetes EdemaResultsLab resultsMed RefillCymbalta-both doses- [facility] bellNeed note stating she can participate in water exercisesPt brought letter from ins co re: taking fenobibrate and zetia togetherReasonCommentsFollow-upTransferred to [facility] 03/13/25 dx: HTN urgency,NSTEMI discharged home03/20/25 med changes made follow up with cardiology 04/02/25 and nephrology 05/06/25discuss referralPt would like a referral sent to nephrology in [place] she does not want to go to [facility] Onset DateCommentsMed Cbgaij0403/25/2025ReasonCommentsHypertensionswelling of lower extremitiesright flank painReasonCommentsWeight [id number] for home health FOR RECORDS PERTAINING TO [...] BE BASED ON THE PRIMARY CLINICAL RECORDS. [employer] provides no warranty or guarantee of the accuracy or completeness of information in this document.
[2025-08-27 13:26] LABS: Hematocrit 26.7 % (36.0-48.0); Hemoglobin 8.9 g/dL (12.0-16.0); Mean Corpuscular HGB Conc 33.3 g/dL (29.9-35.2); Mean Corpuscular Hemoglobin 28.7 pg (26.7-34.0); Mean Corpuscular Volume 86.1 fL (81.0-99.0); Platelet Count 178 10^3/uL (150-450); Red Blood Count 3.10 10^6/uL (4.20-5.40); White Blood Count 3.5 10^3/uL (4.0-11.0)
[2025-08-27 13:43] LABS: Microalbum Creatinine Ratio Ur 577.4 mg/g (0.0-29.9); Protein Creatinine Ratio Urine 2.76; Total Protein Urine Random 135.7 mg/dL (<=11.9)
[2025-08-27 14:05] LABS: Iron 51.0 ug/dL (50.0-170.0); Percent Iron Saturation 14.0 %; Total Iron Binding Capacity 363.0 ug/dL (250.0-450.0)
[2025-08-27 14:19] LABS: Albumin Level 3.3 g/dL (3.4-5.0); Anion Gap 16.7; Calcium 9.2 mg/dL (8.5-10.1); Carbon Dioxide 25.7 mmol/L (21.0-32.0); Chloride 101 mmol/L (98-107); Estimated GFR (African America 13 (>=60 mL/min/1.73m^2); Estimated GFR (Non-African Ame 11 (>=60 mL/min/1.73m^2); Glucose 90 mg/dL (74-106); Magnesium 1.5 mg/dL (1.8-2.4); Potassium 4.4 mmol/L (3.5-5.1); Sodium 139 mmol/L (136-145); Uric Acid 8.8 mg/dL (2.6-6.0)
[2025-08-27 14:30] LABS: Ferritin 101.0 ng/mL (8.0-252.0); Folate 13.30 ng/mL (8.60-58.90)
[2025-08-27 14:47] LABS: Blood Urea Nitrogen 93.0 mg/dL (7.0-18.0)
[2025-08-28 06:08] LABS: Vitamin B12 591 pg/mL (232-1245)
== END 2025-08-27 12:40 | disposition home or self-care (01) ==
LOC: LAB 12:39
PROVIDERS: PCP Internal Medicine; Visit Provider Internal Medicine Nephrology
DX: E87.6 Hypokalemia (principal); E21.3 Hyperparathyroidism, unspecified; E61.1 Iron deficiency; E53.8 Deficiency of other specified B group vitamins
CPT/HCPCS: 36415; 80069; 82043; 82306; 82570; 82607; 82728; 82746; 83540; 83550; 83735; 83970; 84156; 84166; 84550; 85027; 86335